=== PATIENT | female | born 1970 | race American Indian/Alaskan Native ===

== ENCOUNTER 2016-10-31 03:22 | Emergency (ER) | payer OTHER ==
[~2016-10-31] VITALS: Ht 170.2 cm; Wt 81.7 kg
[~2016-10-31 03:22] MED LIST: AMLODIPINE BESYL5 MG PO; ATIVAN0.5 MG PO; ATIVAN2 MG PO; COREG12.5 MG PO; DIFLUCAN200 MG PO; FOLIC ACID1 MG PO; FUROSEMIDE20 MG PO; FUROSEMIDE40 MG PO; IRON236 MG PO; IRON325 MG PO; K-PHOS NEUTRAL T1 EA PO; K-TAB ER20 MEQ PO; LACTULOSE10 GM/15 M PO; LACTULOSE10 GM/151 PO; LASIX40 MG PO; MAG-OXIDE400 MG PO; MAGNESIUM 300300 MG PO; MAGNESIUM400 MG PO; METROGEL-VAGINA70 GM PV; MULTI VITAMIN1 EACH PO; NITROFURANTOIN100 M1 PO; OMEPRAZOLE20 MG PO; OXYCODONE HCL5 MG PO; PEPCID40 MG PO; PROTONIX40 MG PO; SPIRONOLACTONE100 MG NG; SPIRONOLACTONE100 MG PO; SPIRONOLACTONE25 MG PO; SPIRONOLACTONE50 MG PO; THIAMINE HCL100 MG PO; TRAMADOL HCL50 MG PO; TRAZODONE HCL50 MG PO; ULTRAM50 MG PO; URSODIOL300 MG PO; VITAMIN B COMP1 EACH PO; VITAMIN B-1100 M1 PO; XIFAXAN550 MG PO; ZOFRAN ODT8 MG PO; ZUPLENZ8 MG PO
[2016-10-31] MEDS ORDERED: FUROSEMIDE40 MG PO (05:25)
[2016-10-31] MEDS ORDERED: SPIRONOLACTONE50 MG PO (05:25)
[2016-10-31] MEDS ORDERED: POTASSIUM CHLO10 MEQ PO (05:25)
== END 2016-10-31 05:51 | disposition home or self-care (01) ==
LOC: ED 03:22
DX: K74.60 Unspecified cirrhosis of liver (principal); I10 Essential (primary) hypertension; D64.9 Anemia, unspecified; Z88.1 Allergy status to other antibiotic agents; Z88.6 Allergy status to analgesic agent; Z88.8 Allergy status to other drugs, medicaments and biological substances; Z79.899 Other long term (current) drug therapy
CPT/HCPCS: 80053; 82140; 83735; 85025; 96374; 99283; G0480

== ENCOUNTER 2017-03-01 10:57 | Inpatient (IN) | payer OTHER ==
[~2017-03-01] VITALS: Ht 170.2 cm; Wt 64.0 kg
[~2017-03-01 10:57] MED LIST changes: +POTASSIUM CHLO10 MEQ PO
--- NOTE | 2017-03-01 18:19 | NUR ---
PATIENT ADMIT TO CCU FROM ED. ARRIVED TO THE UNIT @ ABOUT 1535 VIA STRETCHER AND INTUBATED. PATIENT WAS TRANSFER WITH 4 PERS. ASSIST. RESPIRATORY THERAPIST IN ROOM TO SET UP VENTILATOR. PROPOFOL AND FLUID WERE INFUSING. HEARD IN PLACE WITH YELLOW URINE. DR CORONEL WAS IN ROOM TO ASSESS PATIENT NEW ORDER FOR PRECEDEX TO MAINTAIN SEDATION. RESTRAINT APPLIED FOR SAFETY AND COMFORT. ASSESSMENT DONE. LUNGS CLEAR AND DIM IN THE LEFT LOWER LOBE. SKIN INTACT EXCEPT REDNESS AREA NOTED IN THE RIGHT ANTERIOR KNEE. ABD MILDLY DISTENTED AND LITTLE FIRM, HYPOACTIVE BOWEL TONE. PATIENT WAS VERY TACHY AND HIGH BP UPON ADMISSION A 3RD IV SITE ESTABLISHED. PATIENT WAS REPOSITIONED.
--- NOTE | 2017-03-01 19:10 | NUR ---
MEDICATION TITRATION - PRESIDEX - 1618 DRIP STARTED AT 0.2 MCG/KG/HR, AT 1624 0.4 MCG/KG/HR, AT 1639 0.6MCG/KG/HR, AT 1700 0.8 MCG/KG/HR, AT 1715 1.0 MCG/KG/HR. PROPOFOL - AT 1530 PT ARIVED AT 30 MCG/KG/MIN, AT 1600 40 MCG/KG/MIN, AT 1715 60 MCG/KG/MIN, AT 1750 30 MCG/KG/MIN. VALIUM - AT 1610 5 MG GIVEN, AT 1716 5 MG GIVEN, AT 1813 5 MG GIVEN. ATIVAN - AT 1750 2 MG IV ATIVAN GIVEN.
--- NOTE | 2017-03-01 19:17 | NUR ---
RESTRAINT ASSESS. RADIAL PULSES PALPABLE. CMS INTACT.
--- NOTE | 2017-03-01 20:50 | NUR ---
REPORT RECEIVED AT BEDSIDE AT 1915. IV INFUSIONS VERIFIED. PROPOFOL GTT INFUSING AT 30MCG/KG/HR, DECREASED AT 1999 TO 25MCG/KG. PRECEDEX INFUSION AT 1.0MCG/KG/HR. PT WITH RASS AT -4. AWAKENS TO NOXIOUS STIMULI. ET TUBE 7.0., POSITIONED 20CM AT TEETH. DR MOORE AND RT IN ROOM AT 1950. PT ASSESSMENT COMPLETED. ORAL CARE AND SUCTION COMPLETED. PT REPOSITIONED TO BACK AT 1999. R ARM ELEVATED ON PILLOW D/T SWELLING. IV'S PATENT ON R ARM, FLUSH WELL, DRAW BLOOD. BRUISING NOTED ON R BICEP AND L KNEE CAP. SLIGHT BLOOD TINGE ON SPONGE AFTER ORAL CARE.
--- NOTE | 2017-03-01 22:39 | EKG ---
[facility] [address] [place] [address] Signed Normal sinus rhythm Normal ECG When compared with ECG of 02-APR-2016 17:40, Nonspecific T wave abnormality has replaced inverted T waves in Anterolateral leads Confirmed by LONNIE MOORE MD ([id number]) on 03/01/2017 10:39:19 PM Electronically Signed By: LONNIE MOORE MD 03/01/17 2239 PATIENT NAME: BERRYLONDON Electrocardiogram DATE OF : 72 PHYSICIAN: LONNIE MOORE MD REPORT #: [id number] REPORT IS CONFIDENTIAL AND NOT TO BE RELEASED WITHOUT AUTHORIZATION
--- NOTE | 2017-03-01 23:27 | NUR ---
RT IN TO ADJUST VENT SETTINGS FIO2 DECREASED TO 21%, RATE DECREASED TO 16. PT NOTED TO HAVE INFILTRATED IV IN RFA. DC'D IV AND PLACED WARM PACK. L EJ PLACED BY PROCESS IMPROVEMENT SPECIALIST. PT TOLERATED WELL. GRIMACING AND COUGHING TO PAIN. 5MG VALIUM GIVEN AND PROPOFOL DECREASED TO 20MCG/KG/HR FOR RASS -3 TO -4 AT.
--- NOTE | 2017-03-02 00:08 | NUR ---
Decreased propofol gtt to 15mcg/kg/hr. Pt responds to pain only, does not open eyes.
--- NOTE | 2017-03-02 00:15 | NUR ---
ASSESSMENT COMPLETED. RASS: -4, PT GRIMACES TO PAIN, DOES NOT OPEN EYES. LUNGS CLEAR/DIM, FIO2:21%, VT:370, PEEP:5, PIP:16, RR:18, ETCO2: 31, SPO2:97. HR REGULAR, HR:73, BP:126/79. BOWEL TONES RARE, HYPOACTIVE IN LUQ. ABDOMEN IS SOFT, MODERATELY DISTENDED. RESTRAINTS REMOVED ONE AT A TIME AND ROM EXERCISES PERFORMED, RESTRAINTS REPLACED. CMS INTACT, PULSES PALPABLE. SCD'S & HEEL PROTECTORS IN PLACE. ORAL CARE AND SUCTIONING PROVIDED BY THIS RN. CATH CARE DONE. REPOSITIONED PT ONTO RIGHT SIDE. WILL CONTINUE TO MONITOR.
--- NOTE | 2017-03-02 01:00 | NUR ---
RASS REMAINS AT -4. PROPOFOL CONTINUES AT 15MCG/KG/HR.
--- NOTE | 2017-03-02 01:00 | NUR ---
RASS REMAINS AT -4. PROPOFOL CONTINUES AT 15MCG/KG/MIN.
--- NOTE | 2017-03-02 01:37 | NUR ---
PRECEDEX GTT DECREASED TO 0.9MCG/KG/HR. PT GIVEN 5MG VALIUM IV.
--- NOTE | 2017-03-02 02:00 | NUR ---
RASS: -4, PROPOFOL CONTINUES AT 15MG/KG/HR AND PRECEDEX CONTINUES AT 0.9
--- NOTE | 2017-03-02 02:00 | NUR ---
RASS: -4, PROPOFOL CONTINUES AT 15MCG/KG/HR AND PRECEDEX CONTINUES AT 0.9MCG/KG/HR.
--- NOTE | 2017-03-02 02:38 | NUR ---
PRECEDEX TITRATED TO 0.8MCG/KG/HR. ROM PERFORMED X4 EXTREMITIES. RESTRAINTS REPLACED, CMS INTACT. PUPILS APPEAR PINPOINT AND ARE NONREACTIVE. PT REPOSITIONED IN BED.
--- NOTE | 2017-03-02 03:00 | NUR ---
RASS REMAINS AT -4. PROPOFOL: 15MCG/KG/HR. TITRATED PRECEDEX TO 0.7MCG/KG/HR.
--- NOTE | 2017-03-02 04:00 | NUR ---
ASSESSMENT COMPLETED. PT REMAINS OBTUNDED, RASS: -4. PUPILS PINPOINT AND UNRESPONSIVE. LUNGS CLEAR/DIM. HR REGULAR. BOWEL TONES RARE. SKIN GROSSLY INTACT. RESTRAINTS CHECKED, CMS INTACT, PERIPHERAL PULSES PALPABLE. ORAL CARE PROVIDED. VENT: CMV, FIO2 21%, VT 370, PEEP 5, NO PRESSURE SUPPORT. PT'S TEMP: 96.7, PLACED 2 WARM BLANKETS AND INCREASED ROOM TEMPERATURE FROM 72 TO 75 DEGREES. REPOSITIONED PT IN BED ONTO LEFT SIDE.
--- NOTE | 2017-03-02 05:07 | NUR ---
RASS: -4, TITRATED PRECEDEX TO 0.6MCG/KG/HR, PROPOFOL REMAINS AT 15MCG/KG/HR. CHECKED RESTRAINTS, CMS INTACT, PULSES PALPABLE. RECHECKED TEMP: 97.4. NO CHANGES TO VENT SETTINGS. WILL CONTINUE TO MONITOR.
--- NOTE | 2017-03-02 05:23 | NUR ---
PROPOFOL TITRATED TO 10MCG/KG/HR.
--- NOTE | 2017-03-02 05:41 | NUR ---
REPOSITIONED PT FLAT IN BED. WEIGHT OBTAINED VIA BED SCALE: 59.1KG.
--- NOTE | 2017-03-02 05:57 | NUR ---
PT RESPONDS TO STERNAL RUB ONLY - GRIMACES. DECREASED PRECEDEX TO 0.5MCG/KG/HR. 5MG VALIUM GIVEN IV.
--- NOTE | 2017-03-02 07:00 | NUR ---
RASS: -2, PT OPENS EYES WHEN SPOKEN TO, MOVING HANDS. 5MG IV VALIUM ADMINISTERED, TITRATED PROPOFOL UP TO 15MCG/KG/HR.
--- NOTE | 2017-03-02 07:30 | NUR ---
bedside report recieved.
--- NOTE | 2017-03-02 08:00 | NUR ---
ASSESSMENT DONE. REMAINS ON VENT, TV-370, PEEP-5, FIO2-21, CMV-16. MEDICATED WITH PRECEDEX AND DIPRAVAN. IV SITES PATENT. ABGS OBTAINED EARLIER. ORAL CARE GIVEN.
--- NOTE | 2017-03-02 09:00 | NUR ---
CELEXA 10 MG CRUSHED AT GIVEN VIA OG TUBE, OG CLAMPED. WILL UNCLAMP AT 1000. SCD'S ON. ROUTINE MEDS GIVEN.
--- NOTE | 2017-03-02 09:33 | NUR ---
NO CHANGES. REMAINS ON PRECEDEX 0.5 MG/KG/MIN AND DIPRAVAN 15 MG/KG/MIN. REPOSITIONED.
--- NOTE | 2017-03-02 10:15 | NUR ---
MOVING ARMS AND LEGS. FACIAL GRIMACE. ATIVAN 2 MG IV GIVEN. DIPRAVAN INCREASED TO 20 MCG/KG/MIN, PRECEDEX TO 0.7.
--- NOTE | 2017-03-02 10:20 | NUR ---
CALM NOW. SPONGE BATH GIVEN. REPOSITIONED. ORAL CARE GIVEN.
--- NOTE | 2017-03-02 10:49 | NUR ---
DIPRAVAN DECREASED TO 20 MCG/KG/MIN. PRECEDEX AT 0.7 MCG/KG/HR.
--- NOTE | 2017-03-02 10:50 | NUR ---
Tod DOVER RN HERE TO PLACE PICC LINE.
--- NOTE | 2017-03-02 11:40 | NUR ---
PICC LINE PLACED TP LEFT INNER DELTOID. CHEST XRAY DONE FOR PLACEMENT.
--- NOTE | 2017-03-02 11:45 | NUR ---
DR. MOORE HERE TO COMFIRM PLACEMENT OF PICC LINE. ORDERS RECIEVED OK TO USE PICC LINE. TOELRATED PROCEEDURE WELL. PRECEDEX DECREASED TO 0.5 MGC/KG/HR BP-93/56 (66). IV SITE TO RIGHT INNER WRIST DC'D.
--- NOTE | 2017-03-02 12:04 | NUR ---
DR. MOORE AWARE OF U/O. ORDERS RECIEVED TO BOLUS WITH NS 1000 ML.
--- NOTE | 2017-03-02 13:53 | NUR ---
RESTFUL ON VENT. NO CHANGES IN VENT SETTINGS.
--- NOTE | 2017-03-02 14:08 | NUR ---
PROPOFOL AT 15 MCG/KG/MIN, PRECEDEX AT 0.5 MCG/KG/MIN.
--- NOTE | 2017-03-02 14:20 | NUR ---
NS AT 500 ML OVER 2 HR INFUSED. IVF D2 1/2 NS W/20 KCL HUNG AT 125 ML HR.
--- NOTE | 2017-03-02 16:45 | NUR ---
INC OF LIQ STOOL. IS COUGHING, TENSE. REPOSITIONED, ATTENDS APPLIED.
--- NOTE | 2017-03-02 16:55 | NUR ---
VALIUM 5 MG IV GIVEN. REMAINS TENSE. COUGHING. PULLING ON RESTRAINTS.
--- NOTE | 2017-03-02 17:15 | NUR ---
CALM NOW. THIAMINE HUNG EARLIER.
--- NOTE | 2017-03-02 18:15 | NUR ---
INCREASE AGITATION AFTER REPOSITION. PULLED OUT OG TUBE. ATIVAN 2 MG IV GIVEN. IV TO LEFT HAND OUT. PRESEDEX INCREASED TO .8MCG/KG/HR. DIPRAVAN TO 20 MCG/KG/MIN. NG REPALCED. WILL UPDATE DR. MOORE.
--- NOTE | 2017-03-02 18:56 | NUR ---
DR. MOORE UPDATED ON PATIENT CONDITION, IS AWARE OF DOSE OF PRECEDEX AND DIPRAVAN, AND THE OG REPLACED. IS AWARE OF U/O OUTPUT OVER LAST HOUR. NO FURTHER ORDERS. WILL CONTINUE TO MONITOR.
--- NOTE | 2017-03-02 20:00 | NUR ---
CALLED TO UPDATE ON PT URINE OUTPUT OF 2 ML, LOW BP OF 83/39 (50), AND LOW O2 SAT OF 92%. REPORTED THAT RESP THERAPY IS IN THE ROOM AT THE TIME ASSESSING THE PT. 1 L NS BOLUS ORDERED TO BE GIVEN OVER 1 HR.
--- NOTE | 2017-03-02 20:05 | NUR ---
PRESIDEX DRIP TITRATED TO 0.6 MCG/KG/MIN.
--- NOTE | 2017-03-02 20:16 | NUR ---
PICC LINE INTACT, NO REDNESS OR SWELLING NOTED, FLUIDS INFUSING EASILY INTO BOTH LUMINS. IJ IV SITE IN LEFT SIDE FLUSHES EASILY, NO REDNESS OR SWELLING NOTED, FLUSHES EASILY. PT SEDATED TO A -2, APPEARS COMFORTABLE AT THIS TIME. RESTRAINTS ASSESSED FOR PT COMFORT AND SAFETY. SCD'S INTACT, HEEL PROTECTORS IN PLACE.
--- NOTE | 2017-03-02 20:31 | NUR ---
5 MG VALIUM GIVEN
--- NOTE | 2017-03-02 22:15 | NUR ---
BLADDER SCANED PT FOR 0 ML IN BLADDER. FLUSHED URINARY HEARD CATH WITH 30 ML STERILE NS, ONLY 30 ML FLUID RETURNED FROM CATH, STIVEN IN COLOR.
--- NOTE | 2017-03-02 22:20 | NUR ---
CALLED TO UP DATE ON PT NOT PRODUCING URINE POST 1 L BOLUS OF NS. ORDER GIVEN FOR BMP NOW. DRAWN OFF OF PICC LINE AND SENT TO LAB.
--- NOTE | 2017-03-02 23:35 | NUR ---
CALLED TO UPDATE ON LAB VALUES AND PT CURRENT LOW BP OF 86/36, AND LOW O2 SAT OF 89% ON VENT. CHEST X-RAY ORDERED AND LEVOPHED DRIP TO TITRATE TO KEEP MAP AT LEAST 60.
--- NOTE | 2017-03-02 23:38 | NUR ---
PREXIDEX DRIP OFF.
--- NOTE | 2017-03-02 23:45 | NUR ---
IMAGING HERE TO TAKE CHEST X-RAY. RESP THEREAPY IN ROOM TO ASSIST.
--- NOTE | 2017-03-02 23:53 | NUR ---
2 MG IV ATIVAN GIVEN, LEVOPHED DRIP STARTED AT 2 MCG/MIN.
--- NOTE | 2017-03-03 | NUR ---
PROPOFOL DRIP TITRATED UP TO 40 MCG.
--- NOTE | 2017-03-03 00:15 | NUR ---
PT INCONTINENT OF STOOL, CHANGED ATTENDS AND LINNENS. ROSELIA CARE DONE. PT REPOSITIONED FOR COMFORT. RESTRAINTS CHECKED FOR PT SAFETY AND COMFORT.
--- NOTE | 2017-03-03 00:48 | NUR ---
PICC SITE INTACT, NO SWELLING OR REDNESS NOTED, SCANT OLD BLOOD NOTED UNDER WINDOW DEVICE, FLUIDS INFUSING EASILY. IJ SITE IN LEFT SIDE OF NECK INTACT, NO REDNESS OR SWELLING NOTED, FLUIDS INFUSING EASILY.
--- NOTE | 2017-03-03 03:16 | NUR ---
REPOSITIONED PT FOR COMFORT. RESTRAINTS ASSESSED FOR PT COMFORT AND SAFETY. PT GIVEN 5 MG IV VALIUM FOR SIEZURE PREVENTION. IJ AND PICC SITES INTACT. PT ATTEMPTING TO CHEW ON ET TUBE, PROPOFOL TURNED UP TO 60 MCG/KG/MIN FOR 10 MIN UNTIL PT ABLE TO RELAX. RT REPOSITIONED ET TUBE WITH BITE BLOCK TO PROTECT TUBE FROM PT CHEWING.
--- NOTE | 2017-03-03 05:10 | NUR ---
PT GIVEN 5 MG IV VALIUM FOR SEIZURE PREVENTION. RESTRAINTS CHECKED FOR PT COMFORT AND SAFETY. IN ROOM TO EVALUATE PT FOR MORING ROUNDS, PT IS AT A RASS SCORE OF -1.
--- NOTE | 2017-03-03 06:16 | NUR ---
VERSED DRIP STARTED AT 2 MG/HR.
--- NOTE | 2017-03-03 06:30 | NUR ---
LABS DRAWN FROM PICC LINE, HEP FLUSHED BOTH LUMINS, POSIFLOW CAPS CHANGED, BLOOD RETURN OBTAINED FROM EACH LUMIN.
--- NOTE | 2017-03-03 06:33 | NUR ---
VERSED DRIP TITRATED UP TO 4 MG/HR.
--- NOTE | 2017-03-03 06:35 | NUR ---
PT REPOSITIONED IN BED FOR COMFORT, PILLOWS UNDER BILAT KNEES, GOWN CHANGED, BLANKETS OFF DUE TO PT ELEVATED TEMP. RESTRAINTS ASSESSED FOR COMFORT AND PT SAFETY. OG TUBE FLUSHED WITH 60 ML TAP WATER.
--- NOTE | 2017-03-03 06:48 | NUR ---
PROPOFOL TITRATED TO 40 MCG/KG/HR, VERSED TITRATED TO 6 MG/HR.
--- NOTE | 2017-03-03 07:30 | NUR ---
BEDSIDE REPORT RECIEVED.
--- NOTE | 2017-03-03 08:20 | NUR ---
ASSESSMENT AND ROUTINE MEDS GIVEN. MED INCLUDES PHENOBAR 60 MG IV, VERSED GTT INCREASED TO 8 MG/HR PATIENT REMAINS VERY RESTLESS. IS TENSE. REMAINS ON VENT. SETTINGS TV-370, CMV-16, PEEP-5, FIO2-30. PIP-10 TO 14. POOR U/O. WILL NOTIFY . REMAINS ON LEVOPHED GTT AT 3 MCG/MIN, PROPOFOL 40 MCG/KG/MIN, IVF AT 125.
--- NOTE | 2017-03-03 09:20 | NUR ---
DR. MOORE AWARE OF LOW U/O, WAS UPDATED ON CURRENT DOSE OF IV MEDICATIONS AND V.S. ORDERS RECIEVED.
--- NOTE | 2017-03-03 09:35 | NUR ---
ALBUMIN HUNG. OG CLAMPED MEDS GIVEN VIA TUBE.
--- NOTE | 2017-03-03 10:24 | NUR ---
PICC LINE DRESSING REDRESSED PER PROTOCOL.
--- NOTE | 2017-03-03 12:47 | NUR ---
ATIVAN 2 MG IV GIVEN PRIOR TO CARES.
--- NOTE | 2017-03-03 12:55 | NUR ---
INCONT OF STOOL.
--- NOTE | 2017-03-03 13:00 | NUR ---
SPONGE BATH WITH LINEN CHANGE COMPLETE. LEVPHED GTT AT 1.5 MCG/MIN.
--- NOTE | 2017-03-03 15:00 | NUR ---
DR. MOORE HERE TO SEE PATIENT. ORDERS RECIEVED.
--- NOTE | 2017-03-03 15:25 | NUR ---
URINE AND SPUTUM OBTAINED AND SENT TO LAB.
--- NOTE | 2017-03-03 15:27 | NUR ---
WILL GO TO CT VIA BED AT APPROX 1600. IVF OF NS INFUSING AT 250 ML/HR. MAINTANCE IVF HELD FOR NOW.
--- NOTE | 2017-03-03 15:55 | NUR ---
INC OF LIQUID BILE LIKE STOOL.
--- NOTE | 2017-03-03 16:10 | NUR ---
ATIVAN 2 MG IV GIVEN, READY TO GO TO CT VIA BED. RT, OUTPATIENT SERVICES DIRECTOR, RN WITH PATIENT.
--- NOTE | 2017-03-03 16:40 | NUR ---
TOLERATED CT WELL, BACK TO ROOM W/O INCIDENT.
--- NOTE | 2017-03-03 18:10 | NUR ---
LEVOPHED GTT OFF.
--- NOTE | 2017-03-03 20:12 | NUR ---
PT DID OPEN EYE WHEN PUPILS CHECKED AND HAD A TEAR. ALSO TRIED TO STRIKE OUT WITH HANDS, GIVEN 2MG ATIVAN IV PRIOR TO ORAL CARE BEING DONE. PT INC SMALL AMT GREEN STOOL. CATH CARE DONE. ROM DONE ALL [address] SPOKE WITH [address] OSCAR BURNETTE AT TB TEST SITE, SHE IS AWARE AND STATES THAT THERE IS NO INDERATION. PT CONT TO HAVE HIPS FLOATED ON PILLOWS.
--- NOTE | 2017-03-03 22:05 | NUR ---
REPOSITIONED. NO CHANGE
--- NOTE | 2017-03-04 00:12 | NUR ---
DR MOORE GIVEN UPDATE AT 2330, CONTS TO HAVE POOR URINE OUTPUT. PT REPOSITIONED AND ROM DONE. ATTENDS DRY.
--- NOTE | 2017-03-04 01:40 | NUR ---
PT REPOSITIONED. WRINKLED FACE BUT THEN CALMED.
--- NOTE | 2017-03-04 04:15 | NUR ---
PT REPOSISIONED, ROM DONE. WILL GRIMMACE BRIEFLY WHEN ORAL CARE IS DONE.
--- NOTE | 2017-03-04 04:32 | NUR ---
LT EYE HAS SMALL AMT DRAINAGE, NO REDNESS NOTED.
--- NOTE | 2017-03-04 06:48 | NUR ---
PT REPOSITIONED, CXR DONE AND REPOSITIONED AGAIN. ABG DRAWN. PT DID FROWN WHEN ABG DRAWN.
--- NOTE | 2017-03-04 06:58 | NUR ---
REPORT TO DAY SHIFT.
--- NOTE | 2017-03-04 07:25 | NUR ---
versed decreased to 5 MG/HR.
--- NOTE | 2017-03-04 07:35 | NUR ---
DR. MOORE HERE TO SEE PATIENT. ORDERS RECIEVED TO HOLD PROPOFOL. THIS TURNED OFF AT THIS TIME. VERSED GTT REMAINS AT 5 MG/HR. HOB ELEVATED.
--- NOTE | 2017-03-04 07:45 | NUR ---
RT HERE. VENT TO CPAP. DR. MOORE IN ROOM CONTINUE TO DISCUSS PLAN OF CARE FOR DAY WITH STAFF.
--- NOTE | 2017-03-04 07:58 | NUR ---
RESP RATE 13 ON CPAP. PT OWN TV-500 TO 600. PATIENT IS CALM. NO DISTRESS NOTED.
--- NOTE | 2017-03-04 08:10 | NUR ---
REMAINS CALM. VERSED TO 3 MG/HR.
--- NOTE | 2017-03-04 08:35 | NUR ---
RED AREA ON LEFT INNER FA WHERE TB TEST WAS GIVEN IS 3 CM LONG AND 2 CM WIDE. NO INDURATION NOTED. IS LESS IRRITATED TODAY.
--- NOTE | 2017-03-04 08:53 | NUR ---
REMAINS ON CPAP. RESP 15-20, HAS OCC COUGH. NOT FOLLOWING COMMANDS AT THIS TIME. NOT OPENING EYES.
--- NOTE | 2017-03-04 09:48 | NUR ---
REMAINS ON CPAP. NO RESP DISTRESS NOTED. RESP RATE 16 EQUAL AND NON-LABORED. IS MOVING ARMS AND LEGS OCC, NOT FOLLOWING COMMANDS THIS TIME. EYES CLOSED. VERSED INFUSING AT 3 MG/HR. IVF AT 25. OWN TV-400-550.
--- NOTE | 2017-03-04 09:56 | NUR ---
VERSED TO OFF.
--- NOTE | 2017-03-04 10:23 | NUR ---
CALM. NO SEIZURE ACTIVITY NOTED.
--- NOTE | 2017-03-04 10:50 | NUR ---
REMAINS ON CPAP AT 30% FIO2. O2 SAT 100, HR-87, RR-20. NO DISTRESS NOTED. REMAINS OFF ALL SEDATION. PHENOBARB WAS HELD AT 0900 DUE TO SEDATION VACATON.
--- NOTE | 2017-03-04 11:37 | NUR ---
ABG RESULTS ON 30% FIO2,CPAP VIA VENT, PH7.27, PCO2-29.5, PO2-80, HCO3-13.4.
--- NOTE | 2017-03-04 12:15 | NUR ---
ABG RESULTS REPORTED TO DR. MOORE. ORDERS RECIEVED TO CONTINUE TO GIVE BENZODIAZEPINES WELL PHENOBARB. ATIVAN 2 MG IV AND PHENOBARB 60 IV GIVEN. REPOSITIONED. REMAINS ON CPAP VIA VENT. IS NOT OPENING EYES OR FOLLOWING COMMANDS. PATIENT WAS W/O ANY SEDATION FOR APPROX 3 HRS.
--- NOTE | 2017-03-04 13:34 | NUR ---
DR. MOORE UPDATED ON CONDITION. NO FUTHER ORDERS. PATIENT REMAINS ON CPAP VIA VENT AT 30% FIO2. IS MOVING ARMS AND LEG MORE. NOT FOLLOWING COMMANDS OR OPENING EYS. U/O HAS INCREASED OV THE DAY. URINE COLOR IS YELLOW.
--- NOTE | 2017-03-04 14:32 | NUR ---
RESTFUL. NO CHANGES.
--- NOTE | 2017-03-04 15:40 | NUR ---
DR. SLAUGHTER HERE TO SEE PATIENT. ORDERS RECIEVED.WILL NOT GIVE ANY SEDATION MEDICATION AT THIS TIME. THESE MEDICATIONS HAVE ALL BEEN DC'D.
--- NOTE | 2017-03-04 16:40 | NUR ---
IVF CHANGED. SUCTIONED. NOT FOLLOWING COMMANDS.
--- NOTE | 2017-03-04 17:00 | NUR ---
COUGHING, HR TO 122. VENT BACK TO CMV OF 14, TV 370, PEEP 5, FIO2 30. MORE RESTLESS . DR. SLAUGHTER IS AWARE.
--- NOTE | 2017-03-04 17:32 | NUR ---
pts hourly urine output for 1700 was 108cc.
--- NOTE | 2017-03-04 18:00 | NUR ---
HR-115. FACE FLUSHED. ORAL SUCTION. BODY IS TENSE. NOT FOLLOWING COMMANDS.
--- NOTE | 2017-03-04 20:15 | NUR ---
HAS BEEN TACHYPNEAC, AND COUGHING PRODUCTIVELY OF WHITE SPUTUM. SUCTIONED ETT SEVERAL TIMES SINCE 1930. GIVEN 0.5MG ATIVAN IV AT 1935 AND AT 1999. PT RESISTS CARE, WILL PULL ARM AWAY AND REALLY RESISITED ORAL CARE. WILL NOT OPEN EYES AND WILL CLENCH HANDS. CALMER NOW. HR STILL 120. CATH CARE DONE.
--- NOTE | 2017-03-04 20:38 | NUR ---
PT WILL OCC PULL AT RESTRAINTS, RR [id number] SLAUGHTER CALLED.
--- NOTE | 2017-03-04 21:19 | NUR ---
PROPOFOL STARTED AT 5MG/KG AT 2049 TITRATED TO 10MG/KG AT 2114. PT CONT TO HAVE LARGE AMT SECRETIONS FROM ETT.
--- NOTE | 2017-03-04 22:26 | NUR ---
REPOSITIONED. CONT TO COUGH FREQ.
--- NOTE | 2017-03-04 23:40 | NUR ---
REPOSITIONED. IS INTERMIT RESTLESS.
--- NOTE | 2017-03-05 00:37 | NUR ---
HAVE TITRATED PROPOFOL UP TO 15MG/KG DUE TO RESTLESSNESS. HAS ALSO RECIEVED 2 DOSES OF 0.5MG ATIVAN IV. IS NOW QUIET.
--- NOTE | 2017-03-05 01:30 | NUR ---
PT RESTFUL BETWEEN EPISODES OF COUGHING.
--- NOTE | 2017-03-05 03:50 | NUR ---
RESISTS ANY CARE IE FACE BEING WASHED OR ORAL CARE. WILL NOT OPEN EYES. REPOSITIONED. ORAL CARE DONE. ATTENDS DRY, NO STOOL.
--- NOTE | 2017-03-05 06:24 | NUR ---
REPOSITIONED. PROPOFOL AT 20MG.KG.
--- NOTE | 2017-03-05 07:11 | NUR ---
REPORT TO DAY SHIFT.
--- NOTE | 2017-03-05 08:00 | NUR ---
ASSESSMENT DONE. ROUTINE MEDS GIVE IV WELL OG. TUBE FEEDING REMAINS AT 10 ML/HR. IVF INFUSING AT 125 ML/HR. PROPOFOL INFUSING AT 20 MCG/KG/MIN. SUCTIONED FOR MOD AMT OF THICK WHITE SPUTUM. HAS OCC COUGH. REMAINS ON VENT. SETTINGS: TV-370, FIO2 30, PEEP 5, CMV 14, PIP 11-16.
--- NOTE | 2017-03-05 08:45 | NUR ---
INC OF STOOL. REPOSITIONED TO LEFT SIDE. PROPOFOL DECRESED TO 15 MCG/KG/MIN.
--- NOTE | 2017-03-05 10:40 | NUR ---
PROPOFOL TO OFF. DR. SLAUGHTER IS HERE TO SEE PATIENT.
--- NOTE | 2017-03-05 11:20 | NUR ---
BCX2 SITES COLLECTED. LA DRAWN. PATIENT IS RESISTANT OF NEEDLES. WILL OPEN EYES BRIEFLY. HEARD CATH DC'D, WILL REPLACE AND OBTAIN UA. TUBE FEEDING INCREASED TO 20 ML/HR.
--- NOTE | 2017-03-05 11:40 | NUR ---
INC OF STOOL. HEARD CATH REPLACED. PORT CXR DONE. REMAINS ON CPAP AT FIO2 30%. HAS OCC COUGH.
--- NOTE | 2017-03-05 14:06 | NUR ---
DR SLAUGHTER TO BEDSIDE. MD ORDERS ET TUBE TO BE REMOVED AND PATIENT TO BE PLACED ON BIPAP. PATIENT REMAINS MINIMALLY RESPONSIVE, BARELY RESPONDS TO STERNAL RUB. MD IS AWARE AND ALSO ASSESSES PATIENT. RT CALLED FOR EXTUBATION.
--- NOTE | 2017-03-05 14:20 | NUR ---
RT AND MD AT BEDSIDE. 1420 PATIENT EXTUBATED, OG TUBE REMOVED, RT PLACES PATIENT ON BIPAP. PATIENT TOLERATES WELL. O2 SATS 98-100. REMOVED WRIST RESTRAINTS. BIPAP IN PLACE O2 AT 30%
--- NOTE | 2017-03-05 14:20 | NUR ---
EXTABATED. PLACED ON BIPAP. NO RESP DITRESS NOTED. WRIST RESTRAINTS OFF. HOB ELEVATED.
--- NOTE | 2017-03-05 14:45 | NUR ---
REMAINS ON BIPAP. N RESP DISTRESS NOTED.
--- NOTE | 2017-03-05 15:15 | NUR ---
BIPAP OFF. NOW ON RA. WILL CONTINUE TO MONITOR O2 SAT.RESTFUL.
--- NOTE | 2017-03-05 16:00 | NUR ---
OFF O2 IS NOW ON RA. HAS OCC HARSH NON PRODUCTIVE COUGH. IS MORE ALERT, FOLLOWING SOME COMMANDS. ORAL CARE GIVEN.
--- NOTE | 2017-03-05 16:00 | NUR ---
PICC LINE DRESSING CHANGED, BLOOD NOTED ON DRESSING.
--- NOTE | 2017-03-05 16:20 | NUR ---
INCONT OF STOOL.
--- NOTE | 2017-03-05 18:00 | NUR ---
TO COMMODE WITH ASSIST. NO BM BACK TO BED.
--- NOTE | 2017-03-05 18:46 | NUR ---
REMAINS ON RA. NO RESP DISTRESS NOTED. NO SEIZURE ACTIVITY. K RIDER INFUSING.
--- NOTE | 2017-03-05 18:56 | NUR ---
NO CHANGES. REMAINS ON RA. NOT ABLE TO UNDERSTAND WHAT PATIENT IS TRYING TO SAY.
--- NOTE | 2017-03-05 20:09 | NUR ---
PT STARTING TO GET OOB, INDICATED SHE NEEDED TO HAVE BM. ASSISTED TO BSC WITH MAX 2 PERSON ASSIST. HAD SCANT GREEN STOOL. BACK TO BED WAS STRONGER AND EASIER TO DIRECT. FOLLOWS FEW COMMANDS. WHISPERS BUT UNABLE TO UNDERSTAND SPEECH. BP 158/107, GIVEN SCHEDULED DOSE OF LOPRESSER.
--- NOTE | 2017-03-05 22:21 | NUR ---
PT ATTENDS DRY. REPOSITIONED IN BED. BED ALARM ON PT POINTING TO CLOSET. PT VOICE VERY QUIET, DIFFICULT TO UNDERSTAND. PT SHAKES HEAD YES OR NO. VERY WEAK. PULLING AT IV TUBING AT TIMES AND PICKING AT DRESSINGS. PT STATED 'JUST GO'.
--- NOTE | 2017-03-05 22:51 | NUR ---
BEDSIDE SWALLOW COMPLETED WITH PT. PT DID NOT PASS. COUGHING WITH 2ND TEASPOON OF WATER. DR SLAUGHTER AWARE OF MEDS TO BE HELD IF PT DOES NOT PASS.
--- NOTE | 2017-03-06 00:30 | NUR ---
OCC TRIES TO PULL ON SIDE RAIL. STILL VERY HARD TO UNDERSTAND SPEECH, PT OCC WILL HAVE A FEW CLEAR WORDS. WILL CALM AND REST FOR INTERVALS.
--- NOTE | 2017-03-06 03:36 | NUR ---
RESTLESS AT TIMES. REPOSITIONED. CAN OCC UNDERSTAND WHAT PT IS TRYING TO SAY. PT REMAINS DISORIENTED. DID SAY WANTED TO TALK TO SISTER, EXPLAINED WAS MIDDLE OF NIGHT AND WILL CALL HER LATER.
--- NOTE | 2017-03-06 04:27 | NUR ---
DR SLAUGHTER CALLED RE PTS RESTLESS AND ELEVATED BP. WILL GIVEN 1MG ATIVAN IV.
--- NOTE | 2017-03-06 06:26 | NUR ---
HAS BEEN MORE RESTFULL SINCE WAS GIVEN ATIVAN. WILL OCC CALL OUT.
--- NOTE | 2017-03-06 07:30 | NUR ---
UP TO CHAIR WITH ASSIST.
--- NOTE | 2017-03-06 08:00 | NUR ---
ASSESSMENT DONE. IS VERY DIFFICULT TO UNDERSTAND.
--- NOTE | 2017-03-06 08:30 | NUR ---
TOOK MEDS IN APPLESAUSE, WAS ABLE TO SWALLOW WITHOUT PROBLEMS.
--- NOTE | 2017-03-06 08:52 | NUR ---
up to commode to void. DENIES PROBLEMS.
--- NOTE | 2017-03-06 10:00 | NUR ---
BACK TO BED. DR. ONEILDY HER TO DO DX PARACENTESIS. APPROX 20 ML OF [id number] FLUID SENT TO LAB. PATIENT TOLERATED WELL.
--- NOTE | 2017-03-06 11:56 | NUR ---
UP TO CHAIR. TAKING PO LIQUIDS.
--- NOTE | 2017-03-06 13:30 | NUR ---
NADOLOL 20 MG PO GIVEN. PATIENT IS SITTING IN CHAIR.
--- NOTE | 2017-03-06 14:37 | NUR ---
TO COMMODE TO EXPELL URINE AND LIQUID STOOL. PUTTING MORE WEIGHT ON FEET TODAY. VOICE IS STRONGER, ABLE TO UNDERSTAND FEW WORDS PATIENT IS SAYING. IS FOLLOWING MOST DIRECTION AND TAKING SIPS OF LIQ WHEN OFFERED.
--- NOTE | 2017-03-06 16:34 | NUR ---
AMBULATED TO BR TO VOID AND HAVE BM, BACK TO BED.
--- NOTE | 2017-03-06 16:55 | NUR ---
DR. SLAUGHTER AWARE OF BP INCREASE. ORDERS RECIEVED.
--- NOTE | 2017-03-06 17:15 | NUR ---
SECOND DOSE OF NADOLOL 20 GIVEN PER ORDERS.
--- NOTE | 2017-03-06 17:55 | NUR ---
TOOK FULL LIQ FAIR.
--- NOTE | 2017-03-06 20:02 | NUR ---
NOTED TO BE RESTLESS AND STARTING TO GET UP. WAS INC OF LIQ STOOL. AMB TO BR WITH WALKER TO HAVE MORE STOOL AND VOID IN TOILET. IS UNSTEADY ON FEET BUT USES WALKER WELL. IS VERY DIFFICULT TO UNDERSTAND BUT CAN OCC UNDERSTAND A FEW PHRASES. IS SOMEWHAT CONFUSED BUT DIRECTABLE. GIVEN PO MED WITH PUDDING.
--- NOTE | 2017-03-06 22:20 | NUR ---
HAS BEEN SLEEPING. AMB TO BR WITH WALKER, IS STRONGER. HAD LIQ STOOL MIXED WITH URINE IN TOILET DESPITE TRYING TO MEASURE WITH HAT. TAKING WATER.
--- NOTE | 2017-03-06 23:30 | NUR ---
UP TO BR FOR LIQ STOOL AND TO VOID. TAKES DIRECTION WELL. STILL VERY DIFICULT TO UNDERSTAND.
--- NOTE | 2017-03-07 02:38 | NUR ---
AMB TO BR TO VOID AND HAVE SMEAR BM. GATO BEING UP WELL, GETTING STRONGER. ASKED IF IT WAS TIME FOR LUNCH, INDICATED WAS HUNGRY. GIVEN PUDDING. SPEECH IS CLEARER AND TALKING MORE WITH STAFF.
--- NOTE | 2017-03-07 03:50 | NUR ---
UP TO BR. VOIDED AND HAD SMALL STOOL. CONT TO USES WALKER WELL. SPEECH CONT TO GET STRONGER AND CLEARER.
--- NOTE | 2017-03-07 05:40 | NUR ---
AMB TO BR TO VOID AND HAVE LG LIQ STOOL. IS COOPERATIVE AND REQUIRES LESS DIRECTION. IS ASKING ABOUT PHONING HER HOME.
--- NOTE | 2017-03-07 08:57 | NUR ---
PATIENT UP IN CHAIR AT THIS TIME. PT EATING A FULL LIQUID TRAY. PT SOFT SPOKEN BUT ANSWERING QUESTIONS APPROPRIATELY. CONTINUE TO MONITOR.
--- NOTE | 2017-03-07 09:15 | NUR ---
One out of two blood cultures grew Gm(+) cocci. Possible contaminate, but also could be MSSA or MSRA infection.
--- NOTE | 2017-03-07 10:05 | NUR ---
DR. SLAUGHTER IN ROOM TO EVALUATE PATIENT. PATIENT UP TO BATHROOM X1 ASSIST. PT AMBULATES FAIRLY WELL. NEW ORDERS REC'D TO D/C PICC LINE AND START PERIPHERAL IV LINE. PT TO BE STARTED ON IV VANCO. CONTINUE TO MONITOR.
--- NOTE | 2017-03-07 11:02 | NUR ---
BALANCE TRUER IN ROOM DOING ECHOCARDIOGRAM AT THIS TIME. PT ABLE TO SWALLOW HER AM MEDS WITHOUT DIFFICULTY. CONTINUE TO MONITOR.
--- NOTE | 2017-03-07 11:49 | NUR ---
DR. SLAUGHTER REQUESTING THIS RN TO PLACE MIDLINE IN PT'S RIGHT ARM AND D/C PICC IN LEFT. CONTINUE TO MONITOR. PT IN BED RESTING AT THIS TIME.
--- NOTE | 2017-03-07 12:54 | NUR ---
ARLEY SANDOVAL, FROM SURGERY DEPARTMENT IN ROOM PLACING MIDLINE IN RIGHT UPPER ARM. PT TOLERATING WELL. CONTINUE TO MONITOR.
--- NOTE | 2017-03-07 15:18 | NUR ---
PATIENT HAS REMAINED UP IN CHAIR FOR APPROX THE LAST HOUR, ATE 100% LUNCH WITHOUT DIFFICULTY. HAS ALSO AMBULATED WITH STANDBY ASSIST TO BR TO VOID. DOES USE CALL LIGHT APPROPRIATELY BUT IS IMPULSIVE. IS EASILY REDIRECTED TO WAIT FOR STAFF ASSISTANCE D/T MULTIPLE CORDS, TUBING ETC.
--- NOTE | 2017-03-07 15:54 | NUR ---
REPORT GIVEN TO JAIME HIGGINS WHO IS GOING TO RESUME CARE FOR PATIENT ON MED/SURG. PATIENT SITTING IN CHAIR AT THIS TIME. PHYSICAL THERAPY IN ROOM EVALUATING PATIENT. PT TO TRANSFER TO ROOM 111 WITHOUT TELEMETRY.
--- NOTE | 2017-03-07 16:12 | NUR ---
PATIENT ABLE TO AMBULATE ALL THE WAY TO ROOM 111 WITHOUT DIFFICULTY.
--- NOTE | 2017-03-07 16:15 | NUR ---
PT ABLE TO AMBULATE TO FLOOR WITH PHYS. THER. MOVING SLOW BUT FAIRLY STEADY HANGING ONTO THE IV POLE. PT NOW HAS VISITORS IN ROOM. SLOW TO RESPOND TO QUESTIONS BUT HAS RESPONDED APPROPRIATLY.
--- NOTE | 2017-03-07 16:20 | NUR ---
CARE CONFERENCE ATTENDEES: PATIENT, SISTER CORNELIUS, AND MALE FRIEND STAFF: DR SLAUGHTER, MYSELF-CASE MANAGEMENT, PHARMACY-RONALDO CHUNG. DR SLAUGHTER DISCUSSED WITH PT AND HER SISTER WHAT HAS BEEN GOING ON WITH PT SINCE SHE CAME IN AND HOW SHE WAS HAVING SEIZURES AND NEEDED INTUBATED TO COME THROUGH WITHDRAWALS X 4 DAYS, EXTUBATED FOR 2 DAYS AND NOW HAVING A PNEUMONIA AND ON ANTIBX, SISTER ASKED HOW LONG SHE WOULD BE ON THEM AND STATED COUPLE MORE DAYS AT LEAST, AND SHE IS WORKING WITH PT TO GET STRONGER. HE REMINDED HER THAT SHE IS NOT TO DRINK ANY ALCOHOL THAT IT HAS DAMAGED HER LIVER AND IT WILL KILL HER. PT STATES I AM JUST TRYING TO GET SOBER SO I CAN GO TO MY A AND D COUNSELOR. PT AND SISTER DENIED FURTHER QUESTIONS. WILL CONTINUE TO FOLLOW HER DURING HER STAY IN THE HOSPITAL.
--- NOTE | 2017-03-07 16:29 | NUR ---
CARE CONFERENCE WITH PT, STAFF AND SISTER AND FRIEND. PT ASKED A COUPLE OF QUESTIONS BUT MOSTLY WORRIED ABOUT HER "AUNT LASHANDA". EXPLAINED IMPORTANCE OF QUITTING ALCOHOL.
--- NOTE | 2017-03-07 17:39 | NUR ---
pts vitals taken at this time.
--- NOTE | 2017-03-07 17:40 | NUR ---
PT TRANSFERED FROM CCU THIS AFTERNOON. HAS HAD FAMILY IN ROOM. SLOW TO RESPOND BUT ANSWERS APPROP. SL. VS STABLE. BED\CHAIR ALARM FOR IMPULSIVITY.
--- NOTE | 2017-03-07 19:30 | NUR ---
RECIEVED REPORT FROM DAY SHIFT NURSE. PT RESTING IN CHAIR. SISTER IN ROOM. NOTIFIED PATIENT AND SISTER IF PATIENT NEEDS TO GET UP FOR ANYTHING TO CALL THE NURSE. CALL LIGHT IN REACH.
--- NOTE | 2017-03-07 20:07 | NUR ---
PATIENT IN CHAIR, DOES NOT NEED ANYTHING AT THIS TIME. WHITEBOARD UPDATED, ROOM TIDIED. NEW GREEN SHEET PUT UP ON DOOR.
--- NOTE | 2017-03-07 21:29 | NUR ---
PT RESTING IN BED. TOILETING OFFERED, STATES SHE JUST WENT WITH ANOTHER NURSE. PT IS ALERT AND ORIENTED, SLOW TO RESPOND. STATES SHE IS HERE BECUASE SHE WAS HAVING SEIZURES. PATIENTS LUNGS CLEAR, HR REGULAR, ROUND BELLY, PATIENT STATES SHE FEELS MILDLY DISTENDED. BS AUSCULTATED. JAUNDICED SCLERA. NO C/O PAIN. PT DENIES NEEDS. CALL LIGHT IN REACH.
--- NOTE | 2017-03-07 22:18 | NUR ---
PATIENT SLEEPING. ABX INFUSING IN RUE. CALL LIGHT IN REACH.
--- NOTE | 2017-03-07 23:11 | NUR ---
PATIENT SLEEPING. ABX INFUSING. CALL LIGHT IN REACH. BED ALARM ON.
--- NOTE | 2017-03-08 00:28 | NUR ---
PATIENT SLEEPING. CALL LIGHT IN REACH. BED ALARM IN PLACE.
--- NOTE | 2017-03-08 02:30 | NUR ---
PT UP TO BATHROOM WITH ASSIST. PT INCONT OF STOOL ON THE WAY TO THE BATHROOM. PT VOIDED IN HAT. WASHED PT'S LEGS, CHANGED SOCKS AND SCDS. BIG DATA ANALYTICS LEAD ASSISTED PT TO STANDING POSITION WHILE I PERFORMED PERICARE. BRIEF CHANGED. PATIENT BACK TO BED. SCDS IN PLACE. HYDRATION OFFERED. PT DENIES FURTHER NEEDS. CALL LIGHT IN REACH.
--- NOTE | 2017-03-08 03:33 | NUR ---
ABX INFUSING. SCDS REMOVED SO PT MAY SIT UP ON EDGE OF BED TO HAVE A SNACK. PT CASEY CRACKERS AND PEANUT BUTTER DELIVERED. PT DENIES FURTHER NEEDS. CALL LIGHT IN REACH.
--- NOTE | 2017-03-08 04:22 | NUR ---
PATIENT CALLED TO HAVE GARBAGE THROWN AWAY.
--- NOTE | 2017-03-08 05:09 | NUR ---
PT UP TO BATHROOM WITH ASSIST. PT VOIDED AND HAD A LOOSE STOOL. BACK TO BED. SCDS IN PLACE. FITNESS AND WELLNESS MANAGER IN TO OBTAIN VS. PT DENIES FURTHER NEEDS. CALL LIGHT IN REACH.
--- NOTE | 2017-03-08 05:35 | NUR ---
SLEPT MOST OF THE NIGHT. INCONT OF STOOL X1. VS STABLE. BED ALARM. NO C/O PAIN. WOULD LIKE TO SHOWER TODAY.
--- NOTE | 2017-03-08 06:03 | NUR ---
LABS DRAWN OFF MIDLINE. REPLACED CLAVE. PT SLEEPING. ABX RESTARTED. CALL LIGHT IN REACH. BED ALARM ON.
--- NOTE | 2017-03-08 07:05 | NUR ---
BEDSIDE HANDOFF REPORT RECEIVED FROM HOUSEKEEPER RN. PT SLEEPING, LEFT UNDISTURBED.
--- NOTE | 2017-03-08 07:55 | NUR ---
pt assisted to BR at this time. pt now sitting up in the chair. breakfast ordered. no other requests at this time.
--- NOTE | 2017-03-08 09:00 | NUR ---
PT SITTING IN CHAIR EATING BREAKFAST. MORNING MEDICATIONS GIVEN. IV VANCO INFUSING. PT ORIENTED X3, UNSURE OF DATE, ABLE TO STATE MONTH. OCCUPATIONAL THERAPIST TO BEDSIDE. PT DENIES NEEDS AT THIS TIME.
--- NOTE | 2017-03-08 09:20 | NUR ---
PT SITTING IN CHAIR. PT DENIES PAIN. PT ON ROOM AIR, LUNG SOUNDS CLEAR, DENIES SOB. PT DENIES NAUSEA, TOLERATING REGULAR DIET, BOWEL TONES ACTIVE. PT WITH MIDLINE, DRESSING INTACT, INFUSING. PT WITHOUT EDEMA TO BLE, CMS INATCT. PT WITH FLAT AFFECT, SLOW TO RESPOND TO QUESTIONS. PT DENIES NEEDS AT THIS TIME, REQUESTING SHOWER TODAY, DISCUSSED PLAN OF CARE.
--- NOTE | 2017-03-08 10:12 | NUR ---
PT SALINE LOCKED FOR SHOWER, NURSE AIDE TO ASSIST PT WITH SHOWER.
--- NOTE | 2017-03-08 10:41 | NUR ---
pt assisted to the shower.
--- NOTE | 2017-03-08 11:40 | NUR ---
pPT WORKING WITH PHYSICAL THERAPIST.
--- NOTE | 2017-03-08 12:06 | NUR ---
pt sitting up in the chair eating lunch at this time.
--- NOTE | 2017-03-08 12:30 | NUR ---
PT SITTING IN CHAIR, EATING LUNCH. IV MAGNESIUM INFUSING. PT DENIES NEEDS AT THIS TIME.
--- NOTE | 2017-03-08 13:17 | NUR ---
pt assisted to the BR at this time with Kristin.
--- NOTE | 2017-03-08 13:51 | NUR ---
PT ASSISTED TO BATHROOM AND BACK TO CHAIR. PT DENIES NEEDS AT THIS TIME. LUNG SOUNDS CLEAR. IV MAG AND ZOSYN INFUSING. NO ACUTE CHANGES.
--- NOTE | 2017-03-08 14:20 | NUR ---
pts vitals taken at this time.
--- NOTE | 2017-03-08 14:52 | NUR ---
PT UP TO BATHROOM, ASSISTED BACK TO CHAIR. PT INSTRUCTED TO CALL FOR ASSISTANCE. FRIEND AT BEDSIDE.
--- NOTE | 2017-03-08 16:03 | NUR ---
PT ASSISTED TO BATHROOM AND BACL TO CHAIR. TEETH BRUSHED. PT DENIES OTHER NEEDS AT THIS TIME.
--- NOTE | 2017-03-08 18:07 | NUR ---
PT ALERT/ORIENTED. PT ON ROOM AIR, LUNG SOUNDS CLEAR. PT TOELRATING REGULAR DIET, GOOD APPETITE. IV MAG X3, VANCO AND ZOSYN. PT UP WITH SBA TO BATHROOM, VOIDING QS, PO DIURETICS DISCONTINUED. PT HAD BM TODAY.
--- NOTE | 2017-03-08 19:15 | NUR ---
ROUNDED CHARGE. PATIENT IS RESTING IN RECLINER TALKING ON HER CELLPHONE. PATIENT DENIES ANY COMMENTS, QUESTIONS, OR CONCERNS. CALL LIGHT IN REACH.
--- NOTE | 2017-03-08 19:35 | NUR ---
RECIEVED REPORT FROM DAY SHIFT NURSE. PATIENT RESTING UP IN CHAIR TALKING ON THE PHONE. STATES HER FRIEND WILL BE STAYING OVERNIGHT WITH HER. PATIENT DENIES NEEDS AT THIS TIME. CALL LIGHT IN REACH.
--- NOTE | 2017-03-08 20:47 | NUR ---
PT RESTING UP IN CHAIR. TOILETING OFFERED. PT ABLE TO DEMONSTRATE PROPER USE OF INCENTIVE SPIROMETER. LUNGS CLEAR, HR REGULAR, NO EDEMA, BS ACTIVE. PT STATES SHE FEELS MILDLY DISTENDED. PT IS ALERT AND ORIENTED. SLOW TO RESPOND. NO C/O PAIN. DENIES NEEDS. CALL LIGHT IN REACH.
--- NOTE | 2017-03-08 22:23 | NUR ---
PT RESTING UP IN CHAIR. FRIEND CAME IN TO STAY OVERNGIHT. HYDRATION OFFERED. TOILETING OFFERED. PT DENIES NEEDS. CALL LIGHT IN REACH.
--- NOTE | 2017-03-09 00:26 | NUR ---
PATIENT RESTING IN BED. FRIEND AT BEDSIDE. JUST GOT BACK FROM BATHROOM, PT STATES SHE VOIDED AND HAD A SMALL BM. DENIES NEEDS AT THIS TIME. CALL LIGHT IN REACH.
--- NOTE | 2017-03-09 02:32 | NUR ---
PATIENT SLEEPING IN BED. CALL LIGHT IN REACH.
--- NOTE | 2017-03-09 03:36 | NUR ---
PATIENT RESTING IN BED. TOILETING OFFERED. STATES SHE JUST WENT WITH THE BONE COOKING OPERATOR. PT IS ALERT AND ORIENTED. STILL SLOW TO RESPOND. LUNGS CLEAR, HR REG, NO EDEMA. PT STATES SHE STILL FEELS MILDLY "BLOATED." ABDOMEN IS SOFT/NONTENDER. NO C/O PAIN. PATIENT DENIES NEEDS AT THIS TIME. CALL LIGHT IN REACH.
--- NOTE | 2017-03-09 03:38 | NUR ---
REMOVED PRESSURE DRESSING OVER OLD PICC SITE. SMALL PUNCTURE WOUND NOTED, COVERED WITH STERILE GAUZE AND WRAPPED ARM WITH COBAN.
--- NOTE | 2017-03-09 04:24 | NUR ---
ASSISTED PATIENT TO BATHROOM WITH 1PA/NON-SLIP SOCKS. PATIENT TOLERATED AMBULATION WELL. NOW RESTING COMFORTABLY IN BED, BREATHING IS EVEN AND UNLABORED. DENIES FURTHER NEEDS AT THIS TIME. CALL LIGHT WITHIN REACH.
--- NOTE | 2017-03-09 05:49 | NUR ---
SLEPT MOST OF NIGHT. DIARRHEA HAS SLOWED DOWN. FRIEND STAYED OVERNIGHT WITH HER. DRAW LABS AT 0830 THROUGH MIDLINE INCLUDING VANC TROUGH.
--- NOTE | 2017-03-09 07:30 | NUR ---
REPORT GIVEN FROM MAGALI HUFFMAN AM. ASSISTED PATIENT TO BR WITH A STBY ASSIST. PATIENT VOIDED AND HAD SOFT STOOL. ASSISTED BACK TO BED. FRIEND ASLEEP ON COUGH IN ROOM.
--- NOTE | 2017-03-09 07:59 | NUR ---
GAVE HER A WASH CLOTH AND SHE WASHED HER FACE. SET HER UP FOR A SHOWER. NOW SHE IS SITTING ON SIDE OF BED EATING HER BREAKFAST.
--- NOTE | 2017-03-09 08:30 | NUR ---
LABS DRAWN VIA MIDLINE. PATIENT TOLERATED WELL. FLUSHED WITH HEPRIN AFTER LAB DRAW. ASSESSMENT COMPLETE. PATIENT LUNGS CLEAR IN UPPER LOBES. CRACKLES ASCULTATED. IS EDUCATION GIVEN. PATIENT ABLE TO GET 1200 ON IS. COUGING AFTERWARDS. ENCOURAGED DEEP BREATHING AND IS THROUGHOUT TODAY. PATIENT STBY ASSIST TO BR AND CHAIR FROM BED. TOLERATING MOVEMENT WELL. UNSTEADY AT TIMES. NEEDING STBY ASSIST. CALLING APPROPRIATLY WITH CALL LIGHT. OREINTED AT THIS TIME. SLOW TO RESPOND TO QUESTIONS BUT DOES ANSWER CORRECTLY. PATIENT TOLERATED BREAKFAST. WELL. DISCUSSED PLAN OF CARE. AWAITING CULTURES AND LAB RESULTS BEFORE MORNING [facility]
--- NOTE | 2017-03-09 10:29 | NUR ---
NEW ORDERS OF MEDICATIONS BASED ON LABS. DISCUSSED WITH PATIENT. TOLERATED ORAL POTASSIUM WELL. AWAITNG BOBBIO TO FINISH BEFORE MAG STARTED. PATIENT SITTING IN CHAIR. NO OTHER NEEDS AT THIS TIME.
--- NOTE | 2017-03-09 11:08 | NUR ---
magnesium started. patient sitting in chair working on is. no longer coughing with is use.
--- NOTE | 2017-03-09 11:32 | NUR ---
PATIENT AMBULATING IN LOPEZ. TOLERATING WELL. NO OTHER COMPLAINTS AT THIS TIME.
--- NOTE | 2017-03-09 12:21 | NUR ---
PATIENT ASSISTED TO BR WITH A STBY ASSIST. PATIENT TOLERATED MOVING WELL. ASSISTED BACK TO BED. PREPARED ANTIBIOTIC BUT HOLDING UNTIL MAGNESIUM FINISHING. UPDATED PATIENT OF PLAN OF IV MEDICATIONS. PATIENT REQUESTING TO GET WASHED UP. PLAN ON DOING BED BATH DUE TO IV INFUSIONS AT THIS TIME.
--- NOTE | 2017-03-09 12:51 | NUR ---
rounded with dr. oconnor in room. updated patient on plan of care. new order for more labs this evening at 1999. continue with iv mag. and antibiotics.
--- NOTE | 2017-03-09 14:08 | NUR ---
bedbath given.patient washed upper and lower body. hair washed. lotion applied. patient tolerated well. stating that it felt a lot better after bath
--- NOTE | 2017-03-09 14:12 | NUR ---
PT SITTING IN CHAIR, REQUESTED TICKET PRINTER AND TAGGER TO VISIT. I TOLD HER I WOULD LET THEM KNOW, WHICH I DID. WILL FOLLOW NEEDED
--- NOTE | 2017-03-09 14:13 | NUR ---
SUMMER THE NURSE GAVE HER A BED BATH AND SHAMPOODED HER HAIR AND LOTION HER ARMS AND LEGS.
--- NOTE | 2017-03-09 15:30 | NUR ---
patient in room sitting in chair. tolerating well. no other needs at this time.
--- NOTE | 2017-03-09 16:38 | NUR ---
PATIENT AMBULATED THREE LAPS IN LOPEZ. TOLERATING OKAY. NEEDING TO STOP A FEW TIMES TO CATCH HER BREATH. ASSISTED BACK TO BED. ANTIBIOTIC CONTINUES TO RUN. PLAN TO DO MAG. RIDER ONCE ANTIBIOTIC IS DONE INFUSING.
--- NOTE | 2017-03-09 17:50 | NUR ---
FINAL MAG RIDER STARTED PER DR. SLAUGHTER ORDER. PATIENT SITTING IN CHAIR EATING DINNER.
--- NOTE | 2017-03-09 17:54 | NUR ---
pts vitals taken at this time.
--- NOTE | 2017-03-09 18:03 | NUR ---
PATIENT HAS HAD THREE 3 GRAM MAGNESSIUM RIDERS. VANCO AND ZOSYN FOR ANTIBIOTICS. HAS ORDERS TO COMPLETE A 1 L NS BAG. TOLERATING REGULAR DIET. AMBULATED IN THE LOPEZ X2. PATIENT HAS BEEN CALLING WELL TO USE THE BR. STEADY ON HER FEET WITH A 1 ASSIST. ALL MEDICATIONS HAVE RUN LATE DUE TO MAG RIDERS AND ZOSYN NOT BEING COMPATABLE.
--- NOTE | 2017-03-09 19:25 | NUR ---
RECIEVED REPORT FROM DAY SHIFT NURSE. PATIENT RESTING IN BED. IVF INFUSING W/O DIFFICULTY. SCDS IN PLACE. PATIENT DENIES NEEDS. CALL LIGHT IN REACH.
--- NOTE | 2017-03-09 20:08 | NUR ---
RN DRAWING LABS OFF MIDLINE.
--- NOTE | 2017-03-09 20:33 | NUR ---
PATIENT UP TO [facility] WITH ASSIST. VOIDED, BACK TO BED. LUNGS CLEAR, HR REGULAR, NO EDEMA, PALPABLE PEDAL PULSES, ACTIVE BS. NO C/O PAIN. DENIES NEEDS. CALL LIGHT IN REACH.
--- NOTE | 2017-03-09 22:30 | NUR ---
PT UP TO BATHROOM WITH ASSIST.
--- NOTE | 2017-03-10 00:53 | NUR ---
ASSISTED PT TO BATHROOM. PT UNSTEADY AMBULATING. BACK TO BED. IVF INFUSING W/O DIFFICULTY. PT STATES SHE IS A LITTLE UPSET BECUASE HER "FRIEND" DID NOT STAY OVER WITH HER. PT DENIES FURTHER NEEDS. CALL LIGHT IN REACH.
--- NOTE | 2017-03-10 02:15 | NUR ---
ASSISTED PT TO BATHROOM.
--- NOTE | 2017-03-10 04:42 | NUR ---
PATIENT SLEEPING. CALL LIGHT IN REACH.
--- NOTE | 2017-03-10 06:51 | NUR ---
PATIENT RESTING WITH EYES CLOSED IN BED. CALL LIGHT IN REACH.
[2017-03-10] MEDS ORDERED: NADOLOL40 MG PO (11:08)
[2017-03-10] MEDS ORDERED: XIFAXAN550 MG PO (11:08)
--- NOTE | 2017-03-10 12:26 | NUR ---
PT IN CHAIR. SET HER UP FOR LUNCH. COMPLETE LINEN CHANGE
--- NOTE | 2017-03-10 12:46 | NUR ---
TOOK PT VITALS FOR DC
--- NOTE | 2017-03-10 12:49 | NUR ---
GOT PATIENT OFF OF BEDPAN. PERFORMED ROSELIA CARE.
== END 2017-03-10 13:25 | disposition home or self-care (01) | DRG 896 ==
LOC: ED 10:57 → CCU 14:24 → MS 03-07 16:12
PROVIDERS: ADMIT Internal Medicine
PROC: HZ2ZZZZ Detoxification Services for Substance Abuse Treatment (ICD-10-PCS; principal; 2017-03-01)
PROC: 5A1945Z Respiratory Ventilation, 24-96 Consecutive Hours (ICD-10-PCS; 2017-03-01)
PROC: 0BH17EZ Insertion of Endotracheal Airway into Trachea, Via Natural or Artificial Opening (ICD-10-PCS; 2017-03-01)
PROC: 02HV33Z Insertion of Infusion Device into Superior Vena Cava, Percutaneous Approach (ICD-10-PCS; 2017-03-02)
PROC: 0W9G3ZX Drainage of Peritoneal Cavity, Percutaneous Approach, Diagnostic (ICD-10-PCS; 2017-03-07)
DX: F10.239 Alcohol dependence with withdrawal, unspecified (principal); J96.01 Acute respiratory failure with hypoxia; J69.0 Pneumonitis due to inhalation of food and vomit; G93.41 Metabolic encephalopathy; K76.6 Portal hypertension; E87.2 Acidosis; N17.9 Acute kidney failure, unspecified; E22.2 Syndrome of inappropriate secretion of antidiuretic hormone; D61.818 Other pancytopenia; K70.31 Alcoholic cirrhosis of liver with ascites; K70.40 Alcoholic hepatic failure without coma; E87.6 Hypokalemia; K80.20 Calculus of gallbladder without cholecystitis without obstruction; E83.42 Hypomagnesemia
CPT/HCPCS: 36415; 36569; 36600; 51702; 51798; 70450; 71010; 71250; 74176; 80048; 80053; 80076; 80202; 81001; 82042; 82105; 82140; 82607; 82728; 82746; 82803; 83540; 83605; 83690; 83735; 83930; 83935; 84134; 84425; 84466; 84484; 84703; 85025; 85045; 85610; 86301; 87040; 87070; 87075; 87077; 87186; 87205; 89051; 93005; 93010; 93306; 94002; 94003; 94640; 94660; 94668; 96361; 96365; 96367; 96375; 96376; 97110; 97116; 97161; 97165; 99291; G0480; J2060; J2250; J2405; J2543; J2560; J2704; J3360; J3370; J3411; J3475; J3480; J7030; J7042; J7060; J7120; P9047

== ENCOUNTER 2017-05-03 12:56 | Emergency (ER) | payer OTHER ==
[~2017-05-03] VITALS: Ht 170.2 cm; Wt 63.5 kg
[~2017-05-03 12:56] MED LIST changes: +NADOLOL40 MG PO
== END 2017-05-03 15:00 | disposition home or self-care (01) ==
LOC: ED 12:56
DX: F10.230 Alcohol dependence with withdrawal, uncomplicated (principal); I10 Essential (primary) hypertension; Z79.899 Other long term (current) drug therapy; Z88.8 Allergy status to other drugs, medicaments and biological substances; Z88.1 Allergy status to other antibiotic agents; Z88.6 Allergy status to analgesic agent
CPT/HCPCS: 99284

== ENCOUNTER 2017-12-22 18:10 | Emergency (ER) | payer OTHER ==
[~2017-12-22] VITALS: Ht 170.2 cm; Wt 63.5 kg
--- OUTSIDE RECORDS SUMMARY | 2017-12-22 18:14 | XMS ---
PreManage Notification: [place] Operator Events No recent Security Events currently on file CRITERIA MET - Group Notification - POLST - [facility] - 3 Facilities in 90 Days - [facility] - 2 Visits in 30 Days CARE PROVIDERS DOCTOR [facility] Current PHONE: Unknown Alvino has no Care Guidelines for this patient. E.D. VISIT COUNT (12 MO.) 1 [facility] 1 [facility] 2 [facility] 3 [facility] [place] . TOTAL 7 NOTE: Visits indicate total known visits. ED/UCC VISIT TRACKING (12 MO.) 12/22/2017 18:10 [facility] TYPE: Emergency COMPLAINT: - NOT FEELING WELL 11/27/2017 12:27 [facility] TYPE: Emergency DIAGNOSES: - Altered mental status, unspecified - glf - Encephalopathy, unspecified 11/20/2017 12:51 [facility] TYPE: Emergency DIAGNOSES: [id number]. [id number]. Alcoholic cirrhosis of liver with ascites 19591. Acute cystitis with hematuria 05/03/2017 20:30 [facility]: Emergency DIAGNOSES: - Seizure - Seizure (Adult - Alcoholic) - Alcohol dependence with withdrawal delirium - Hypomagnesemia - Alcohol dependence with withdrawal, unspecified 05/03/2017 12:56 [facility] TYPE: Emergency COMPLAINT: - ALCOHOL WITHDRAWL DIAGNOSES: - Allergy status to other drugs, medicaments and biological substances status - Alcohol dependence with withdrawal, uncomplicated - Essential (primary) hypertension - Allergy status to analgesic agent status - Unspecified convulsions - Allergy status to other antibiotic agents status - Other fci (current) drug therapy 03/01/2017 10:58 [facility] TYPE: Emergency COMPLAINT: - ALTERED LOC 12/31/2016 14:20 [facility]: Emergency DIAGNOSES: - Seizure (Adult - Alcoholic) - seizures INPATIENT VISIT TRACKING (12 MO.) 11/27/2017 12:27 [facility] TYPE: Medical Surgical DIAGNOSES: - Encephalopathy, unspecified - Altered mental status, unspecified 05/03/2017 20:30 [facility] [place] TYPE: Medical Surgical DIAGNOSES: - Other pancytopenia - Anemia, unspecified - Hepatic failure, unspecified without coma - Hypo-osmolality and hyponatremia - Alcohol dependence with withdrawal delirium - Alcohol dependence with withdrawal, unspecified - Alcoholic cirrhosis of liver with ascites - Alcohol dependence with withdrawal, uncomplicated - Hypomagnesemia 12/31/2016 14:20 [facility] TYPE: Intensive Care DIAGNOSES: - Alcoholic cirrhosis of liver with ascites - Hepatic failure, unspecified without coma - Altered mental status, unspecified - Spontaneous bacterial peritonitis - Alcohol dependence with withdrawal, uncomplicated - Anemia, unspecified - Hypo-osmolality and hyponatremia - Pneumonia, unspecified organism - Alcohol dependence with intoxication, unspecified [email or web address]
[2017-12-22] MEDS ORDERED: SPIRONOLACTONE50 MG PO (21:49)
[2017-12-22] MEDS ORDERED: LACTULOSE10 GM/15 M PO (21:49)
[2017-12-22] MEDS ORDERED: CANE1 EACH MISC (21:50)
[2017-12-22] MEDS ORDERED: ULTRA-LIGHT RO1 EACH MISC (21:50)
== END 2017-12-22 22:15 | disposition home or self-care (01) ==
LOC: ED 18:10
DX: K74.60 Unspecified cirrhosis of liver (principal); I10 Essential (primary) hypertension; Z87.891 Personal history of nicotine dependence; Z88.6 Allergy status to analgesic agent; Z88.1 Allergy status to other antibiotic agents; Z88.8 Allergy status to other drugs, medicaments and biological substances; Z88.2 Allergy status to sulfonamides
CPT/HCPCS: 80053; 81001; 82140; 85025; 85610; 99285; G0480

== ENCOUNTER 2019-04-27 18:24 | Emergency (ER) | payer OTHER ==
[~2019-04-27] VITALS: Ht 170.2 cm; Wt 63.5 kg
[~2019-04-27 18:24] MED LIST changes: +CANE1 EACH MISC; +ULTRA-LIGHT RO1 EACH MISC
[2019-04-27] MEDS ORDERED: FUROSEMIDE20 MG PO (20:42)
[2019-04-27] MEDS ORDERED: SPIRONOLACTONE50 MG PO (20:42)
== END 2019-04-27 21:04 | disposition home or self-care (01) ==
LOC: ED 18:24
DX: K74.60 Unspecified cirrhosis of liver (principal); R18.8 Other ascites; Z87.891 Personal history of nicotine dependence
CPT/HCPCS: 80053; 81001; 83690; 85025; 85610; 99284

== ENCOUNTER 2019-05-28 13:30 | Emergency (ER) | payer OTHER ==
[~2019-05-28] VITALS: Ht 170.2 cm; Wt 63.9 kg
== END 2019-05-28 17:11 | disposition home or self-care (01) ==
LOC: ED 13:30
DX: K74.60 Unspecified cirrhosis of liver (principal); R18.8 Other ascites; I10 Essential (primary) hypertension; D64.9 Anemia, unspecified; Z88.6 Allergy status to analgesic agent; Z88.1 Allergy status to other antibiotic agents; Z88.8 Allergy status to other drugs, medicaments and biological substances; Z88.2 Allergy status to sulfonamides; Z79.899 Other long term (current) drug therapy
CPT/HCPCS: 80053; 81001; 82140; 83690; 83735; 85025; 99284

== ENCOUNTER 2019-07-15 20:29 | Inpatient (IN) | payer OTHER ==
[~2019-07-15] VITALS: Ht 170.2 cm; Wt 55.1 kg
--- NOTE | 2019-07-16 01:02 | NUR ---
ADMIT TO CCU PER STRETCHER FROM ED FOR ANEMIA, HYPONATREMIA. HAS HX OF ETOH USE AND HAS UNDERGONE WITHDRAWLS IN THE PAST. IS SOMEWHAT SLOW TO RESPOND TO QUESTIONS AND IS POOR HISTORIAN. ABLE TO TAKE PO FLIDS AND MEDS WITHOUT PROBLEM. SMALL AMT BLOOD NOTED ON SHEETS NEAR BOTTOM BUT UNABLE TO DETERMINE SOURCE AT THIS TIME.
--- NOTE | 2019-07-16 01:45 | NUR ---
BLOOD TRANSFUSING FOR 15 MINUTES. PT VS REMAIN WNL. NO COMPLAINTS OF DIZZINESS OR PAIN. TURNED UP TO 150 MLS/HR AT THIS TIME. WILL CONTINUE TO CLOSELY MONITOR FOR S/S OF TRANSFUSION REACTION
--- NOTE | 2019-07-16 02:07 | NUR ---
PT WAS INCONTINENT OF URINE. COMPLETE BED CHANGE REQUIRED. PT UNABLE TO ASSIST WITH REPOSITIONING IN BED. SKIN EXCORIATED IN ROSELIA AREA, SMALL OPEN AREA ABOVE ANUS. BONY PROMINENCES ON BACK HAVE BRUISING. PT STATES THEY ARE OLD INJURIES.
--- NOTE | 2019-07-16 02:35 | NUR ---
PT TOLERATING BLOOD TRANSFUSION WELL. HR RATE AND BLOOD PRESSURE REMAIN WNL. BLOOD TURNED UP TO 175 ML/HR
--- NOTE | 2019-07-16 03:28 | NUR ---
Pt was incontinent of urine. Pericare was provided. Pt. was repositioned and is visible from the nurses station. Blood continues to infuse, no adverse reactions noted. Will continue to closely monitor.
--- NOTE | 2019-07-16 04:10 | NUR ---
SECOND UNIT BLOOD INFUSING WITHOUT PROBLEM.
--- NOTE | 2019-07-16 05:09 | NUR ---
PT INC OF URINE, ATTENDS CHANGED AND HIPS FLOATED. PT IS MORE DROWSY AT THIS TIME, SLEPT THROUGH ATTENDS CHANGE.
--- NOTE | 2019-07-16 05:58 | NUR ---
BLOOD INFUSED WITHOUT PROBLEM. LAB DRAWN. PT WILL OPEN EYES TO NAME AND WILL NOD HEAD AND SOFTLY ANSWER SOME QUESTIONS. WILL HOLD ATIVAN AT THIS TIME.
--- NOTE | 2019-07-16 07:30 | NUR ---
REPORT RECIEVED. RESTFUL IN BED.
--- NOTE | 2019-07-16 08:00 | NUR ---
ASSESSMENT DONE. WILL FOLLOW SOME COMMANDS. IS SLOW TO RESPONE. TALKED WITH PATIENT ABOUT POC. UNSURE IF PATIENT IS UNDERSTANDING.
--- NOTE | 2019-07-16 08:09 | NUR ---
PT resting in bed. PT obtunded and responded to verbal commands, but did not speak or open eyes. Took vitals and left pt. resting in bed, bed lowered with call light within reach.
--- NOTE | 2019-07-16 08:30 | NUR ---
INCONT OF URINE AND SMALL AMOUNT OF STOOL. ATTENDS CHANGED. BURN LIKE AREA NOTED IN RECAL AREA. CREAM APPLIED.
--- NOTE | 2019-07-16 08:50 | NUR ---
DR. MOORE HERE TO SEE PATIENT. ORDERS RECIVED. PATIENT WILL SAY FEW WORDS AT TIMES. WILL HOLD PO MEDS UNTIL MORE AWAKE.
--- NOTE | 2019-07-16 08:50 | NUR ---
Notified by Paulina Hi, occupational therapy supervisor. Farmworker Machine Logan Mena is here with information regarding Shaila. Met office Mena in ER waiting room. He states he has beens searching for Shaila for 5 days as he has had calls from her family in [facility], and [facility]. Family are very concerned for her. He states he had many leads over the last few days, but each time he missed her where she was staying. He received a call last night from her Uncle Roman Brunner stating she was with him, but intoxicated and not doing well. At 8 pm he received another call and text stating they were bringing her to the hospital ER. She had been drinking nonstop for 5 days and he was unable to take care of her. Officer asked if she was + for drugs and I stated I was not able to release this information. He asked I give her his card as she had been couch surfing and is homeless. He states there are not any programs to help homeless people/or some wanting to detox on the [facility]. He would like her to have his information if she needs assistance in the future. He states some of the people she was with are heavily into hard drugs, felons, and dangerous. In to see Shaila. She is awake and has a bruised/black eye on the R side of her face. Updated I have spoke with Officer Mena and he would like her to have his card. She does a very small nod. Asked how she is feeling and if she can speak with me now. She is not able to verbally respond, but tracks with her eyes and attempts to nod. Informed I will return tomorrow and visit with her then if she is able.
--- NOTE | 2019-07-16 10:15 | NUR ---
TOOK PO MEDICATIONS WELL. NO COUGH NOTED WITH SWALLOWING. FEW BITES OF PUDDING GIVEN. REPOSITIONED. ASKED PATIENT IF SHE FELT ANXIOUS, NODDED HEAD IN YES MOTION. REMAINS SOMEWHAT SOMULENT. NOT MEDICATED AT THIS TIME. WILL CONTINUE TO MONITOR.
--- NOTE | 2019-07-16 11:42 | NUR ---
PO ATIVAN GIVEN. ASSESSMENT UNCHANGED.
--- NOTE | 2019-07-16 12:23 | NUR ---
JAIME SAAVEDRA REQUESTED I NOT VISIT AT PRESENT TIME. FEELS THAT PT NEEDS TO BE LEFT ALONE AT THE MOMENT AFTER THE AM SHE HAS HAD.
--- NOTE | 2019-07-16 12:45 | NUR ---
STUDENT NURSE FED PATIENT ENSURE. PATIENT TOLERATING WELL. NO ISSUES WITH SWALLOWING. WILL SAY FEW WORDS. EYES ARE MOSTLY SHUT, WILL OPEN EYES BRIEFLY RARELY.
--- NOTE | 2019-07-16 13:30 | NUR ---
Sri WATTS RN HERE TO PLACE MIDLINE .
--- NOTE | 2019-07-16 14:00 | NUR ---
TOOK APPLESAUSE,ENSURE,SHERBERT, WATER. FEED BY STUDENT NURSE.
--- NOTE | 2019-07-16 14:10 | NUR ---
MIDLINE PLACED W/O DIFFICULTY TO LEFT INNER UPPER ARM.
--- NOTE | 2019-07-16 14:18 | NUR ---
MIDLINE INSERTION NOTE: ASKED BY DR. MOORE TO EVAL PATIENT FOR POTENTIAL MIDLINE OR PICC PLACEMENT. AFTER REVIEWING THE CHART, DISCUSSING WITH THE BEDSIDE RN, AND TALKING WITH THE PATIENT MUCH POSSIBLE, NO ABSOLUTE CONTRAINDICATIONS WERE IDENTIFIED. PATIENT WAS UNABLE TO SIGN A CONSENT FORM, BUT NOT NECESSARY WITH MIDLINE PLACEMENT. MIDLINE WAS DECIDED TO BE UTILIZED. OF NOTE, PATIENT HAS HAD PREVIOUS MIDLINES AND PICC LINES IN THE PAST, MOST RECENTLY IN 2017. PATIENT'S LEFT ARM WAS EVALATED FIRST USING [facility]. PATIENT'S BRACHIAL AND BASILIC VEINS WERE EASILY IDENTIFIED AND BOTH GREATER THAN 8 FR BY [facility]. PATIENT'S CEPHALIC VEIN WAS HARDLY ABLE TO BE IDENTIFIED AND NOT A GOOD CANDIDATE. AFTER FOLLOWING CDC RECOMMENDED GUIDELINES FOR STERILE TECHNIQUE AND PREP, PT'S LEFT ARM WAS PREPARED AND ACCESS WAS OBTAINED ON THE FIRST ATTEMPT INTO THE BRACHIAL VEIN. DARK, NON PULSATILE BRISK BLOOD WAS EASILY ASPIRATED AND FLOWING. GUIDEWIRE WAS THEN ADVANCED WITHOUT PROBLEM. NEXT THE INTRODUCER WAS ADVANCED OVER GUIDEWIRE WITHOUT DIFFICULTY. PT'S MIDLINE WAS THEN PLACED INSIDE INTRODUCER. MIDLINE WAS TRIMMED TO 19 CM PRIOR TO INSERTION. A STERILE DRESSING WAS APPLIED WITH A SECUREMENT DEVICE AND BIO PATCH. PATIENT TOLERATED THIS WHOLE PROCEDURE WELL, BUT DOES SEEM TO WANT TO KEEP HER ARMS CONTRACTED IN TO HER BODY. BLOOD ALSO EASILY ASPIRATES FROM MIDLINE, AND FLUSHES VERY EASILY. REPORT GIVEN TO RN AND EDUCATION MATERIAL LEFT FOR PATIENT REGARDING HER MIDLINE.
--- NOTE | 2019-07-16 14:30 | NUR ---
Call from Dorothea at [facility]. She requests update as Dr. Patel is pt. pcp. Update given for continuation of care. She requests I ask pt when she is able to comprehend, if she would be willing to go to a SNF or to [facility]. I will discuss with pt when she is able.
--- NOTE | 2019-07-16 15:00 | NUR ---
INC OF URINE AND STOOL. UP TO COMMODE WITH ASSIST TO EXPELL MORE LIQUID DARK BROWN STOOL. IS COOPERATIVE. FOLLOWING COMMANDS. BACK TO BED WITH ASSIST. SOMEWHAT SHAKEY AND VERY WEAK.
--- NOTE | 2019-07-16 17:15 | NUR ---
DR. MOORE UPDATED ON PATIENT HR, BP AND DOSES OF ATIVAN GIVEN. ORDERS RECIEVED TO GIVE LACTOLOSE NOW THE GIVNE ATIVAN 2 MG PO FOLLOWED BY ATIVAN 2 MG IV. THIS DONE. PATIENT REPOSITIONED. ABD IS MORE DISTENDED THIS AFTERNOON THAN THIS MORNING.
--- NOTE | 2019-07-16 18:00 | NUR ---
MORE RESTFUL SINCE ATIVAN GIVEN. HEART RATE REMAINS 120-140. NO TREMORS NOTED.
--- NOTE | 2019-07-16 21:05 | NUR ---
HAS BEEN MOSTLY SLEEPING WILL AWAKEN TO VOICE. WILL FOLLOW SOME REQUESTS. T 101, BLANKETS OFF. INC URINE AND STOOL. ROSELIA AREA EXCORIATED, MOISTURE BARRIER APPLIED AFTER AREA CLEANED AND PATTED DRY. PT REPOSITIONED SELF AFTER STAFF DID. HAS ETELVINA HOSE AND HEEL PROTECTORS IN PLACE. DR MOORE CALLED RE TEMP.
--- NOTE | 2019-07-16 22:23 | NUR ---
17 F HEARD CATH INSERTED WITHOUT PROBLEM AND RETURN OF CLEAR YELLOW URINE. SPECIMAN SENT. BLOOD CULTURES DRAWN AND LABS DRAWN. ABLE TO TAKE PO FLUIDS AND HS ATIVAN GIVEN.
--- NOTE | 2019-07-16 23:37 | NUR ---
MORE AWAKE, WANTING TO WATCH TV. T 100.3, PT TOOK COVERS OFF. HR 146, BP 166/103, GIVEN 5MG LOPRESSOR IV. REPOSITIONED.
--- NOTE | 2019-07-17 00:39 | NUR ---
SOMEWHAT RESTLESS AND BP ELEVATED. SPOKE WITH DR. MOORE. PT GIVEN2 MG ATIVAN IV.
--- NOTE | 2019-07-17 01:54 | NUR ---
KEEPS EYES CLOSED MOST OF TIME BU DOES OCC REACH FOR THINGS AND PULL AT COVERS. GIVEN SCHEDULEED PO ATIVAN. ATTENDS DRY.
--- NOTE | 2019-07-17 02:51 | NUR ---
HR 120'S, IS MORE RESTLESS AND PICKING MORE.GIVEN 2MG ATIVAN IV.
--- NOTE | 2019-07-17 03:22 | NUR ---
CONT TO PICK AT COVERS ETC AND HR 130. GIVEN 2MG ATIVAN IV.
--- NOTE | 2019-07-17 04:31 | NUR ---
PT CONT TO BE RESTLESS AND PICKING AT THINGS WITH EYES CLOSED. HR 120'S. GIVEN 2MG ATIVAN IV.
--- NOTE | 2019-07-17 04:56 | NUR ---
TRYING TO TAKE OFF GOWN. GIVEN 2MG ATIVAN IV
--- NOTE | 2019-07-17 05:47 | NUR ---
WAS GIVEN 2MG ATIVAN IV AT 0455 FOR CONT ETOH WITHDRAWL. HR 115-120 AND BP 167/105, GIVEN 5MG LOPRESSOR IV.
--- NOTE | 2019-07-17 07:30 | NUR ---
PATIENT SHIFT REPORT RECIEVED FROM MARKETING OPERATIONS SPECIALIST RN. PATIENT RESTING IN BED. WILL CONTINUE TO CLOSELY MONITOR.
--- NOTE | 2019-07-17 08:35 | NUR ---
INTO PT ROOM FOR MORNING ASSESSMENT. PT SUPINE IN BED. PT APPEARS DROWSY AND GIVES MINIMAL REPLY TO QUESTIONS. PT DEMONSTRATED GENERALIZED WEAKNESS IN ALL EXTREMETIES WITH ASSET CARD CLERK AND PUSH/PULL. PT ARMS WERE DIFFICULT TO STAIGHTEN TO ASSESS IVs. ASCITIES NOTED IN PT ABDOMEN WITH ACTIVE BOWEL TONES. PT DENIES ANY HUNGER FOR BREAKFAST. BED IN LOWEST POSITOIN AND CALL LIGHT WITHIN REACH.
--- NOTE | 2019-07-17 09:00 | NUR ---
PATIENT ASSESSMENT COMPLETED. PATIENT IS DROWSY AT THIS TIME, BUT IS ORIENTED TO NAME AND WHERE SHE IS. EXPLAINED TO PATIENT SHE IS IN THE HOSPITAL FOR WITHDRAWLS. WILL REPOSITION PATIENT AND GET AM MEDICATIONS. WILL CONTINUE TO CLOSELY MONITOR.
--- NOTE | 2019-07-17 10:26 | NUR ---
INTO PT ROOM FOR MORNING MEDS. PT STILL DROWSY BUT ABLE TO SIT UP IN BED. PILLS TAKEN WITH PUDDING. PT BEGAN TO REFUSE LACTULOSE HALF WAY THROUGH GIVING. WILL GIVE PT A BREAK AND TRY TO CONTINUE WITH LACTULOSE SOON. BED IN LOWEST POSITION AND CALL LIGHT WITHIN REACH.
--- NOTE | 2019-07-17 10:51 | NUR ---
Attempted to speak with Shaila. She is sleeping soundly, has been medicated with lorazepam. Not awakened.
--- NOTE | 2019-07-17 11:28 | NUR ---
ATTEMPT TO GIVE MORE OF LACTULOSE. PT HAD DIFFICULTY SWALLOWING INITIAL MOUTHFUL AND BEGAN COUGHING, DESAT DOWN TO 89%. PT SAT UP FURTHER IN BED AND GIVEN SIP OF WATER. PT ABLE TO CLEAR THROUGHT AND SWALLOW. O2 SATURATION UP TO 97% ON RA.
--- NOTE | 2019-07-17 12:00 | NUR ---
PATIENTS BED BATH COMPLETED AND BEDDING CHANGED. PATIENT TOLERATED WELL. AM MEDICATIONS WERE GIVEN, BUT WAS A SLOW PROCESS. PATIENT TOELRATED WELL. PRN ATIVAN NEEDED FOR INCREASED CIWA PER MD MOORE. NO OTHER NEEDS AT THIS TIME. WILL CONTINUE TO CLOSELY MONITOR.
--- NOTE | 2019-07-17 12:39 | NUR ---
JAIME ROCA INFORMED ME THAT PT IS UNABLE TO HAVE VISIT FROM ME AT THIS TIME. WILL FOLLOW UP AGAIN
--- NOTE | 2019-07-17 12:46 | NUR ---
PT GIVEN BED BATH AND BRIEF CHANGED. ROSELIA AREA MOIST. EXTRA SMALL BM NOTED. BARRIER CREAM APPLIED TO THE COCCYX AND ALONG GROIN. CATHETER CARE PROVIDED. PT ABLE TO SIT UP AND TAKE REMAINING LACTULOSE. SEIZURE PADS PLACED ON BED RAILS PRECAUTION. BED IN LOWEST POSITION AND CALL LIGHT WITHIN REACH.
--- NOTE | 2019-07-17 13:36 | NUR ---
PATIENT IS PICKING AT CORDS AND HER HR AND BP ARE ELEVATED AT THIS TIME. PATIENT ASKING FOR BEER. WILL GIVE PRN ATIVAN PER MD MOORE FOR CIWA SCALE ORDERS. REPOSITIONED PATIENT AND PATIENT TOLERATED WELL. WILL CONTINUE TO CLOSELY MONITOR.
--- NOTE | 2019-07-17 14:00 | NUR ---
PATIENT NOW RESTING AT THIS TIME. PATIENT HR LOW 100'S. PATIENT DENIES ANY OTHER NEEDS AT THIS TIME. STUDENT DEANDREN IN TO ASSIST WITH PATIENS NEEDS. WILL CONTINUE TO CLOSELY MONITOR.
--- NOTE | 2019-07-17 15:06 | NUR ---
PT GIVEN PO ATIVAN AND PRN ATIVAN FOR WITHDRAWAL. PT TRYING TO PUT LEGS OUT OF BED AND BP AND HEART RATE ELEVATED. PT REPOSITIONED. PT GIVEN SIPS OF ENSURE. NO FURTHER NEEDS AT THIS TIME. BED IN LOWEST POSITION AND CALL LIGHT WITHIN REACH.
--- NOTE | 2019-07-17 16:30 | NUR ---
PATIENT AWAKE AT TIMES. PATIENT THINKS SHE IS AT [facility]. REORIENTED APPROPRIATE. WILL GIVE PRN ATIVAN NEEDED. WILL CONTINUE TO CLOSELY MONITOR.
--- NOTE | 2019-07-17 18:15 | NUR ---
IN TO GIVE PRN DOSE OF ATIVAN FOR INCREASED CIWA. PATIENT IS ALERT TO NAME, BUT DOESNT KNOW WHERE SHE IS. REORIENTED TO PLACE AND SITUATION. NO OTHER NEEDS AT THIS TIME. WILL CONTINUE TO CLOSELY MONITOR.
--- NOTE | 2019-07-17 18:19 | NUR ---
INTO PT ROOM TO TAKE VS AND EMPTY HEARD. PT APPEARS RESTLESS IN BED AND HAS SET OFF BED ALARM TRYING TO PUT LEGS OVER SIDE OF BED. PT REACHING OUT AND PULLING ON BP CUFF. PRN ATIVAN GIVEN FOR WITHDRAWAL SYMPTOMS. HEART RATE IN 110S AND BP ELEVATED. WHEN ASKED IF SHE KNEW WHERE SHE WAS PT ANSWERED "I AM AT THE [facility]". PT REORIENTED TO LOCATION, TIME, AND SITUATION. NO FURTHER NEEDS AT THIS TIME. WILL CONTINUE TO MONITOR. BED IN LOWEST POSTION AND CALL LIGHT WITHIN REACH.
--- NOTE | 2019-07-17 19:45 | NUR ---
PT IS RESTING WITH EYES CLOSED, RR IS EVEN AND NONLABORED, VS STABLE. PT IS VISABLE FROM NURSES STATION.
--- NOTE | 2019-07-17 21:40 | NUR ---
IN ROOM TO ASSESS PT AND ADMINISTER MEDICATIONS. PT TOOK PO MEDICATIONS WELL, ASPIRATIONS PRECAUTIONS FOLLOWED. SHE HAD SOME WATER AND ENSURE ALSO. PERIANAL AREA IS EXCORIATED, BARRIER CREAM APPLIED AFTER PT HAD SM LIQUID BM. REPOSITIONED PT IN BED. CIWA IS 13 AT THIS TIME, ADMINISTERED SCHEDULED ATIVAN AND WILL GIVE IV ATIVAN IF PT DOES NOT IMPROVE. MIDLINE FLUSHES GREAT WITH GOOD BLOOD RETURN, IV FLUID IS INFUSING CONTINUOUSLY THROUGH MIDLINE WHICH MEASURES 18.5 CM. TEDHOSE AND HELL PROTECTORS ARE IN PLACE. SEE ASSESSMENT FOR MORE DETAILS. PT IS VISABLE FROM NURSES STATION.
--- NOTE | 2019-07-17 22:00 | NUR ---
WITH JAIME JOE WE WENT INTO PT'S ROOM AND CHANGED HER ATTENDS DUE TO A SMEAR OF BM. REPOSITIONED HER IN BED. EMPTIED HER HEARD. EMPTIED GARBAGES. PT NEEDS NOTHING AT THIS TIME. BED ALARM ON.
--- NOTE | 2019-07-17 22:25 | NUR ---
PT'S HR AND BP ARE ELEVATED AND PT IS PULLING AT PADS ON THE BED SAYING "I NEED TO GET UP" PT WAS NOT REDIRECTABLE AND CONTINUED TO TRY TO GET OUT OF BED AND PULLING AT THINGS. ADMINISTERED IV ATIVAN PER ORDERS. WILL REASSESS AND CONTINUE TO MONITOR.
--- NOTE | 2019-07-17 23:19 | NUR ---
PT CONTINUES TO PULL AT CORDS ATTACHED AND IS VERY RESTLESS AND AGITATED. ADMINISTERED IV ATIVAN. BP IS 180/106 HR 129. WILL CONTINUE TO MONITOR.
--- NOTE | 2019-07-17 23:48 | NUR ---
BP CAME DOWN SLIGHTLY TO 177/90, HR 128 PT IS STILL RESTLESS IN BED. WILL CONTINUE TO MONITOR.
--- NOTE | 2019-07-18 00:07 | NUR ---
ADMINISTERED IV LOPRESSOR FOR INCREASED BP. WILL CONTINUE TO MONITOR.
--- NOTE | 2019-07-18 01:20 | NUR ---
PT IS STILL RESTLESS IN BED PULLING AT CORDS AND ATTENDS. BP REMAINS ELEVATED AFTER LOPRESSOR, ADMINISTERED ATIVAN FOR CIWA OF 14. PATIENT IS MONITORED FROM NURSES STATION.
--- NOTE | 2019-07-18 02:00 | NUR ---
IN ROOM TO CLEAN UP PT AFTER HAVING A LARGE LOOSE BM.
--- NOTE | 2019-07-18 03:38 | NUR ---
PT HAD MULTIPLE LOOSE BMS WHILE CHANGING HER. SHE IS NOW FINISHED AND CLEANED UP. ATIVAN WAS GIVEN FOR CIWA PROTOCOL. IV IN RT ARM INFILTRATED AND WAS REMOVED. CATH TIP INTACT AND GAUZE AND TAPE ARE NOW IN PLACE. PT MORE TALKATIVE AT THIS TIME BUT CONVERSATION IS NOT MAKING SENSE. SHE POINTED AT THE AIR AND ASKED "WHAT'S THAT". PT SEEMS TO BE A LITTLE MORE COMFORTABLE AT THIS TIME BUT STILL FIGITING AND PICKING AT THINGS.
--- NOTE | 2019-07-18 05:12 | NUR ---
CLEANED PT UP FROM A LARGE LIQUID BM. SHE IS NOW RESTING IN BED COMFORTABLE.
--- NOTE | 2019-07-18 05:44 | NUR ---
ADMINISTERED SCHEDULED PO ATIVAN. PT IS MORE COHERENT AT THIS TIME ASKING "WHERE ARE WE" AND WHEN ASKED IF SHE WAS COMFORTABLE SHE SAID "HIGHER" WHEN THE BED WAS LOWERED AFTER TAKING HER PILL.
--- NOTE | 2019-07-18 06:49 | NUR ---
ADMINISTERED LOPRESSOR FOR INCREASED BP. PT IS RESTING IN BED MOVING LEGS. PT IS VISABLE FROM NURSES STATION.
--- NOTE | 2019-07-18 08:30 | NUR ---
INTO PT ROOM FOR MORNING ASSESSMENT. PT APPEARS AGITATED AND IS NOT ORIENTED TO TIME, PLACE, OR SITUATION. REORIENTED APPROPRIET. PT HAS HYPERACTIVE BOWEL TONES AND ASCITES IS PRESENT. ABDOMEN HAS WAVE LIKE MOVEMENT WITH PALPATATION. LARGE LIQUID STOOL NOTED. BRIEF AND LINEN CHANGED CHANGED. COCCYX AREA REMAINS EXCORIATED AND REDDENED. BARRIER CREAM APPLIED. PT ABLE TO TAKE A FEW BITES OF PUDDING AND SOME SIPS OF WATER. NO FURTHER NEEDS AT THIS TIME. BED IN LOWEST POSTION WITH SIEZURE PADS ON.
--- NOTE | 2019-07-18 09:30 | NUR ---
PT ABLE TO SWALLOW PILLS WITH PUDDING. LACTULOSE HELD DUE TO MULTIPLE LARGE BMs. PRN IV ATIVAN GIVEN DUE TO SYMPTOMS OF WIDRAWAL. PT APPEARS AGITATED IN BED AND IS PULLING AT BP CUFF AND HEART MONITOR LEADS. PT LYING IN BED WITH SIEZURE PADS ON BED RAILS. PT BED VISIBLE FROM NURSE STATION. BED IN LOWEST POSTION. WILL CONTINUE TO MONITOR.
--- NOTE | 2019-07-18 10:00 | NUR ---
TRIED TO TALK WITH PATIENT. EYES WERE OPEN, SHE WAS NOT ABLE TO ANSWER QUESTIONS. SHE DID SAY "COLD". STAFF BROUGHT HER WARM BLANKETS.
--- NOTE | 2019-07-18 10:56 | NUR ---
PATIENT ADMITTED AT HIGH RISK FOR MALNUTRITION DUE TO POOR APPETITE RECENTLY AND UNSURE OF WEIGHT LOSS. SHE IS NOT VERY ALERT TODAY, RECEIVING ATIVAN FOR AGGITATION. ABLE TO TAKE A COUPLE BITES OF PUDDING WITH NURSING. PATIENT'S BMI WAS 19.57 ON ADMIT, WITH WEIGHT OF 125 LBS. UNSURE OF USUAL BODY WEIGHT. NFPE NOT DONE DUE TO PATIENT IN ICU AND GOING THROUGH ALCOHOL WITHDRAWLS. [address] DIET IN PL[address]. PROVIDE ENSURE 2-3 BOTTLES DAILY TO HELP INCREASE CALORIE AND PROTEIN INTAKE IF POOR APPETITE REMAINS. WILL REMAIN AVAILABLE IF NEEDED.
--- NOTE | 2019-07-18 12:07 | NUR ---
PRN ATIVAN GIVEN FOR ETOH WITHDRAWAL SYMPTOMS. PT MOVING RESTLESSLY IN BED AND HEART RATE AND BLOOD PRESSURE INCRESED. PRN METOPROLOL GIVEN FOR BLOOD PRESSURE OF 180/94(116). REASSESSED 20 MINUTES LATER AND BP DOWN TO 163/93(109) AND HEART RATE IN 80s. HEARD EMPTIED AND RECORDED. PT IS BECOMING MORE VERBAL. WHILE GIVING THE MEDS SHE SAID "GO AWAY, LEAVE ME ALONE". PT WAS TOLD THAT SHE WAS GETTING MEDICTION TO HELP HER WITHDRAWAL SYMPTOMS FEEL BETTER AND TO LOWER HER BLOOD PRESSURE. NEW BAG OF LR + K STARTED AND IV TUBING CHANGED. BED IN LOWEST POSTION, WILL CONTINUE TO MONITOR.
--- NOTE | 2019-07-18 13:22 | NUR ---
PATIENT GIVEN BED BATH AND BRIEF CHANGED. LARGE BM NOTED. BARRIER CREAM APPLIED TO COCCYX AND ALONG GROIN BILATERALLY. CATHETER CARE PROVIDED. PATIENT'S HAIR WASHED AND BRUSHED. CHAPSTICK APPLIED BECAUSE LIPS LOOKED DRY. BED IN LOW POSITION WITH SIEZURE PADS ON. NO FURTHER NEEDS AT THIS TIME.
--- NOTE | 2019-07-18 14:26 | NUR ---
administered ativan with student nurse. patient repositioned. no other needs at this time
--- NOTE | 2019-07-18 16:45 | NUR ---
PT STATES "MY HIP HURTS". PT RATES RIGHT HIP PAIN 2/10. PT REPOSITIONED AND PILLOW PLACED UNDER RIGHT HIP. PT STATES THAT HIP FEELS BETTER WITH PILLOW THERE. PT COMPLAINS OF SMALL AMOUNT OF NAUSEA, BUT DOESNT THINK SHE IS GOING TO THROW UP. PT APPEARS MODERATELY RESTLESS AND IS PICKING AT BLOOD PRESSURE CUFF. HEARD EMPTIED AND VITAL SIGNS TAKEN. 100 mg OF PRN LABETALOL GIVEN FOR ELEVTED BLOOD PRESSURE. BED IN LOW POSITION AND CALL LIGHT WITHIN REACH.
--- NOTE | 2019-07-18 17:20 | NUR ---
TALKED VIA PHONE WITH PT'S SISTER AND UPDATED HER TO PT STATUS TODAY. ALSO REQUESTED THAT SHE BE THE POINT OF CONTACT FOR OTHER FAMILY MEMBERS FOR TODAY. IS AGREABLE. ALL QUESTIONS ANSWERED.
--- NOTE | 2019-07-18 18:13 | NUR ---
MED REC COMPLETE
--- NOTE | 2019-07-18 20:59 | NUR ---
SHIFT REPORT RECEIVED FROM JAIME ROCA. ASSESSMENT COMPLETED AT THIS TIME. CURRENTLY PT ONLY ORIENTED TO SELF. SHE APPEARS RESTLESS AND STATES SHE WANTS TO LEAVE. SHE IS SLOW TO RESPOND, BUT WILL ANSWER SOME QUESTIONS AND FOLLOWS SOME DIRECTIONS. CIWA: 14, PRN ATIVAN GIVEN; 30MIN REPEAT CIWA STILL 14, ATIVAN REPEATED ONCE. LUNGS CLEAR, SLIGHTLY DIM IN BASES, RA. HR REGULAR. BOWEL TONES HYPERACTIVE. PT INCONTINENT OF STOOL, ATTENDS CHANGED, PERICARE AND CATH CARE COMPLETED, BARRIER CREAM APPLIED TO COCCYX AND GROIN FOLDS. ETELVINA HOSE AND HEEL PROTECTORS IN PLACE. PT REPOSITIONED ONTO RIGHT SIDE. BED ALARM SET AND SEIZURE PADS IN PLACE FOR SAFETY. PT REMAINS WITHIN LINE OF SITE FROM THIS RN FROM NURSES' STATION.
--- NOTE | 2019-07-18 21:36 | NUR ---
PATIENT APPEARS TO BE RESTING MORE COMFORTABLY AND APPEARS LESS RESTLESS. PT ASKING FOR BEERS, REORIENTED HER TO SURROUNDINGS AND PLAN OF CARE, BUT SHE DOES NOT BELEIVE ME THAT SHE IS IN THE HOSPITAL. SHE IS NO LONGER ATTEMPTING TO EXIT THE BED, THOUGH SHE CONTINUES TO PICK AT HER BLANKETS AND GOWN. VITAL SIGNS STABLE.
--- NOTE | 2019-07-18 22:30 | NUR ---
BOOSTED PT UP IN BED AND REPOSITIONED ONTO LEFT SIDE WITH PILLOW SUPPORT. ATTENDS REMAIN DRY AT THIS TIME. BED ALARM ON FOR SAFETY.
--- NOTE | 2019-07-18 23:20 | NUR ---
CALLED AND SPOKE TO DR. SLAUGHTER REGARDING PT'S LOW URINE OUTPUT. BLOOD PRESSURE STABLE. NO NEW ORDERS RECEIVED AT THIS TIME, WILL CONTINUE TO MONITOR.
--- NOTE | 2019-07-18 23:41 | NUR ---
PT SLEEPING, APPEARS COMFORTABLE, NO APPARENT DISTRESS. RESPIRATIONS EVEN AND UNLABORED. HR:88, RR:18, SPO2:100% ON RA.
--- NOTE | 2019-07-19 00:40 | NUR ---
PT AWAKE, RESTLESS IN BED. CIWA 12, PRN ATIVAN GIVEN. ASSESSMENT COMPLETED, PT ABLE TO TELL ME SHE IS IN "SOME HOSPITAL" THIS TIME, OTHERWISE NO CHANGES FROM PREVIOUS ASSESSMENT. PT REPOSITIONED IN BED. PT REPORTS FEELING HUNGRY, ATE A WHOLE CUP OF PUDDING WITH ASSISTANCE AND DRANK A FEW SIPS OF ENSURE, PT STATES "THANK YOU" WHEN FINISHED. BED ALARM AND SEIZURE PADS REMAIN IN PLACE FOR SAFETY. ATTENDS REMAIN DRY AT THIS TIME.
--- NOTE | 2019-07-19 01:49 | NUR ---
PT APPEARS TO BE RESTING COMFORTABLY, SLEEPING OFF AND ON. VITAL SIGNS STABLE. IVF INFUSING.
--- NOTE | 2019-07-19 04:33 | NUR ---
ASSESSMENT COMPLETED. CIWA 6, PATIENT CALM/COOPERATIVE AT THIS TIME. VITAL SIGNS STABLE. PT REPOSITIONED IN BED. BED ALARM AND SEIZURE PADS REMAIN ON FOR SAFETY.
--- NOTE | 2019-07-19 05:28 | NUR ---
PT INCONTINENT OF SMALL AMOUNT OF LIQUID STOOL. NEW ATTENDS AND PERICARE PROVIDED, BARRIER CREAM APPLIED TO COCCYX AND GROIN FOLDS. PT REPOSITIONED ONTO RIGHT SIDE WITH PILLOW SUPPRT. BED ALARM AND SEIZURE PADS IN PLACE FOR SAFETY.
--- NOTE | 2019-07-19 07:15 | NUR ---
REPORT RECEIVED FROM JAIME TORRES. PT RESTING IN BED WITH EYES CLOSED. RESPIRATIONS EVEN AND UNLABORED. SEIZURE PADS UP ON SIDES OF BED. BED RAILS UP. CURTAIN OPEN FOR EASY VIEWING FROM NURSES STATION.
--- NOTE | 2019-07-19 08:20 | NUR ---
MORNING ASSESSMENT AND MEDICATION DUE. THIS RN TO BEDSIDE. PT RESTING ON LEFT SIDE. ASSESSMENT DONE. PT DENIES PAIN AND NAUSEA. PT UNABLE TO STATE WHERE SHE IS BUT IS ABLE TO ASK FOR FOOD. BREAKFAST ORDERED. LUNG SOUNDS CLEAR TO DEMINISHED. REDNESS AND FRAGILE SKIN NOTED TO COCCYX, ROSELIA CARE DONE. BARRIER CREAM APPLIED TO COCCYX AND ROSELIA AREA. DEPENDS CHANGED. CIWA SCORE OF 9. PT BECOMING INCREASINGLY AGITATED. SEE MAR FOR MEDICATION GIVEN. SEIZURE PADS IN PLACE FOR SAFETY. HEARD DRAINING CLEAR YELLOW URINE, 125 ML REMOVED FROM HEARD. PT RESTING IN BED WITH EYES CLOSED, RESPIRATIONS EVEN AND UNLABORED. CURTAIN OPEN FOR EASY VIEWING FROM NURSES STATION.
--- NOTE | 2019-07-19 09:28 | NUR ---
BREAKFAST ARRIVED. PT EATS APROXIMATELY 25% OF CREAM OF WHEAT WITH THIS RN. PT ABLE TO ASK FOR MORE AND STATE WHEN SHE IS FINISHED. PT BECOMING MORE RELAXED. COMPLETE BED BATH DONE. TELE LEADS CHANGED. LINENES CHANGED. NO SWALLOWING DIFFICULTIES NOTED. PT ABLE TO SWALLOW CREAM OF WHEAT AND WATER WITHOUT COUGH OR CHOAKING. PT RESTING IN BED. BED RAILS UP. CURTAIN OPEN FOR EASY VIEWING FROM NURSES STATION.
--- NOTE | 2019-07-19 10:45 | NUR ---
THIS RN TO BEDSIDE FOR ROUNDS WITH MD. PT RESTING WITH EYES CLOSED. PT RESPONDS TO VOICE AND LIGHT TOUCH. PT SOMULENT AT THIS TIME AND NOT ANSWERING QUESTIONS. LORAZAPAM DOES TO BE DECREASED BY MD. FLUIDS DECREASED TO 60ML/HR PER MD ORDER. HEARD CONTINUES DRAINING CLEAR YELLOW URINE. BED RAILS UP. SEIZURE PADS IN PLACE FOR PT SAFETY. NO ADDITIONAL REQUESTS OR COMPLAINTS AT THIS TIME. ANTICIPATING PT TRANSFER TO MED/SURG FLOOR.
--- NOTE | 2019-07-19 13:30 | NUR ---
LUNCH ARRIVED. 1PA MAX ASSIST UP TO CHAIR. PT ABLE TO SIT AT EDGE OF BED FOR BRIEF PERIODS OF TIME. PT ASSISTED WITH EAT LUNCH INCLUDING MASHED POTATOES, CREAM OF MUSHROOM SOUP AND 1 CHOCOLATE ENSURE. GOOD APITITE NOTED. PTS HAIR COMBED AND PUT INTO BUN/PONEY TAIL. PT RESTING IN CHAIR. CALL LIGHT WITHIN REACH. CURTAIN OPEN FOR EASY VIEWING FROM NURSES STATION.
--- NOTE | 2019-07-19 14:45 | NUR ---
THIS RN TO ROOM. PT AGITATED AND TRYING TO GET OUT OF CHAIR. PT ASKED WHY AND STATES SHE NEEDS TO USE THE RESTROOM. PT FOUND TO BE SOILED. MID LINE LEAKING BLOOD. MID LINE SEQURED WITH PRESURE DRESSING. WILL DO STERILE DRESSING CHANGE AND ASSESS. 2PA TRANSFER BACK TO BED. ROSELIA CARE, DIAPER CARE, CATHETER CARE DONE. LINENS CHANGED. PT RESTING COMFORTABLY IN BED. CALL LIGHT WITHIN REACH. WARM BLANKETS PROVIDED.
--- NOTE | 2019-07-19 15:47 | NUR ---
PT NOTED TO BE AGITATED AND CRAWLING OUT OF BED. CIWA SCORE OF 11. SEE MAR FOR MEDICAITON GIVEN. DEPENDS SOILED. ROSELIA CARE, CATHETER CARE AND DIPER CARE DONE. NEW PULSE OX STICKER APPLIED. WARM BLANKETS PROVIDED. BED RAILS UP.
--- NOTE | 2019-07-19 16:45 | NUR ---
ANTICIPATING TRANSFER OF PT TO MED/SURG FLOOR. REPORT GIVEN TO JAIME MOYER WHO STATES HER QUESTIONS HAVE BEEN ANSWERED.
--- NOTE | 2019-07-19 17:25 | NUR ---
MID LINE ASSESSED. DRESSING REMOVED AND AREA CLEANED WITH CLORAHEXADINE. 0CM EXPOSED. DRESSING CHANAGE PER PROTOCOL. CLAVE CAPS CHANGED. LINE FLUSHED, BLOOD RETURN NOTED. LINE INFUSING IV FLUIDS (SEE MAR). PT DEMONSTRATING CIWA SCORE OF 11. SEE MAR FOR MEDICATION GIVEN. DEPENDS SOILED. ROSELIA CARE, CATHITER CARE, AND DIPER CARE DONE. PT TRANSFERED TO MED/SURG. PTS RN, COMFORT, STATES SHE HAS NO ADDITIONAL REQUESTS OR COMPLAINTS. ALL BELONGINGS WITH PT.
--- NOTE | 2019-07-19 18:13 | NUR ---
CALLED DR SLAUGHTER RE: PT'S AGITATION AND CIWA SCORE. DR SLAUGHTER STATED HE WILL CHANGE THE ATIVAN ORDER. ORDER CHANGED TO 0.5-1MG Q2 HR.
--- NOTE | 2019-07-19 20:24 | NUR ---
CALL TO DR. SLAUGHTER REGARDING ORQUIDEA DALE PER DR. KASANDRA DALE TO LEAVE HEARD D/C AT THIS TIME. PT IN ATTENDS. RONALDO SANDOVAL NOTIFIED.
--- NOTE | 2019-07-19 20:33 | NUR ---
charge nurse rounding note: Up to bsc, incontinent of bowel. f/c patent. 1-2PA,/fww, weak LE. uses call light appropriately, no c/o pain, alert and oriented
--- NOTE | 2019-07-19 20:35 | NUR ---
Pt ivf infusing w/o problems. Pt pulled F/C earlier, continues on CIWA ETOH withdrawal assessments,seizure pads in place, on room air. eyes closed,
--- NOTE | 2019-07-20 00:20 | NUR ---
THIS JUNIOR PARALEGAL AND PRIMARY RN CLEANED/CHANGED ATTENDS. PATIENT HAD A WATERY BOWEL MOVEMENT. BED ALARM ON FOR SAFETY.
--- NOTE | 2019-07-20 00:33 | NUR ---
pt inc of urine and stool, skin very excoriated in [place] area, open - barrier cream applied. watery stool leaking - pt confused and axious.
--- NOTE | 2019-07-20 04:13 | NUR ---
IN TO ROOM, PT IN BED AWAKE. PT APPEARS RESTLESS, MOVING AROUND IN BED. CIWA COMPLETED. PT UNABLE TO ORIENT TO DATE, PLACE OR TIME. NEW IVF STARTED. PT REMAINS AWAKE, RESTLESS. CALL LIGHT, BED ALARM AND SEIZURE PADS IN PLACE.
--- NOTE | 2019-07-20 05:07 | NUR ---
PT WAS RESTLESS MOST OF THE NIGHT. FREQUENT BENDING OF L ARM AND IV ALARMING. PT PULLED OUT HEARD AT START OF SHIFT - OK TO LEAVE OUT. CONT. TO HAVE LIQ. CONSTANT BM WITH SKIN BREAKDOWN. (LACTULOSE) DT/ETOH WITHDRAWL USING CIWA PROTOCOL AND FREQUENT ATIVAN. eND STAGE LIVER DX, ENCEP.
--- NOTE | 2019-07-20 05:28 | NUR ---
PRIMARY RN NOTIFIED RE BP.
--- NOTE | 2019-07-20 05:43 | NUR ---
THIS INDUSTRIAL HIRE SALES ASSISTANT FED THE PATIENT 1 JELLO AND 1 PUDDING. PATIENT ALSO DRINK ICE WATER.
--- NOTE | 2019-07-20 06:06 | NUR ---
rn assisted lab to draw blood from r hand. pt was not cooperative and rn held her hand and re assured pt. denies needs - continues to be confused. iv ativan given for increased anxiety and ciwa score.
--- NOTE | 2019-07-20 07:15 | NUR ---
RECIEVED BEDSIDE REPORT FROM RONALDO Sebastian RN. PT IS RESTING COMFORTABLY AT THIS TIME. APPEARS COMFORTABLE. NOT RESTLESS. IVF RUNNING. PT PULLED HEARD OVERNIGHT.
--- NOTE | 2019-07-20 09:14 | NUR ---
CHANGED PT AND DRAW SHEET WITH SURVEY RODMAN ASSISTANCE. PT TOLERATED WELL. PT TOOK MEDS WHOLE WITH PUDDING AND SIPS OF WATER. PT WAS ABLE TO ASK FOR WATER WHEN SHE WANTED WATER.
--- NOTE | 2019-07-20 09:22 | NUR ---
PATIENT IN BED RESTING WITH EYES CLOSED. CALL FRESH WATER GIVEN. CALL LIGHT IN REACH. NO FURTHER NEEDS AT THIS TIME.
--- NOTE | 2019-07-20 09:42 | NUR ---
PT IS DECLINING TO EAT BREAKFAST, SHAKES HER HEAD NO AND SQUEEZES HER EYES SHUT WHEN THIS RN TALKS TO HER ABOUT EATING. SHE DID EAT A CUP OF PUDDING WITH HER MEDS THIS MORNING.
--- NOTE | 2019-07-20 11:11 | NUR ---
Changed attend and repositioned pt in bed. Pt did not wake up.
--- NOTE | 2019-07-20 14:02 | NUR ---
PT ABLE TO TALK TO SISTER STEPHANIE. PT ATE APROX 50% OF LUNCH MEAL. 100ML PO INTAKE.
--- NOTE | 2019-07-20 14:31 | NUR ---
PT IS MILDLY FIDGITY. MODERATE TREMORS VISIABLE. PT CAN BE WOKEN UP AND WILL RESPOND WITH ONE OR TWO WORD ANSWERS. SHE SPOKE WITH HER SISTER ON THE PHONE. SEVERAL SISTERS HAVE CALLED WANTING INFORMATION, THEY ARE NOT LISTED ON THE CHART, VERY UNHAPPY WITH THE RESPONSE THAT THEY CANNOT GET INFORMATION AT THIS TIME D/T WHO IS LISTED ON ON CHART. CIWA SCORE OF 15, 1MG ATIVAN GIVEN. PT IS CALMER NOW.
--- NOTE | 2019-07-20 16:47 | NUR ---
CIWA SCORE DECREASED TO 14.
--- NOTE | 2019-07-20 17:43 | NUR ---
PATIENT SITTING UP IN BED, NURSE CHERI IS IN ROOM WITH PATIENT, VITAL SIGNS DONE, INTAKE AND OUTPUT DONE WELL
--- NOTE | 2019-07-20 17:56 | NUR ---
PT IS SITTING UP AT EDGE OF BED WITH RN AT BEDSIDE. SHE IS TALKING, HOLDING HER OWN JUICE, REQUESTING BLANKETS AND SHOES. PT NOT SAFE TO BE LEFT ALONE. PT IS ABLE TO HAVE A CONVERSATION, HAS TALKED TO HER SISTER ON THE PHONE. MD AWARE OF PROGRESS.
--- NOTE | 2019-07-20 19:17 | NUR ---
bedside report - pt is restless - this rn had her sit at side of bed while we did report. She looks like she is more awake and starting to clear - still confused but more aware. still has bed alarm, call light and line of sight.
--- NOTE | 2019-07-20 20:56 | NUR ---
this rn had pt sit up at bedside to take po meds, she sat up with max assist very weak - but was able to drink water and eat apple sauce on her own while sitting with nurse for assessment. still confused but looks better. she took po pills on own in apple sauce. then she stood up with this nurse max assist and amb around bed to bsc to have liq bm and be changed inct. of stool and urine. meaghan care done - very excoriated - barrier cream placed then pt was able to max assist pivot transfer to clean bed. very shakey and unsteady - but attempting to follow directions. weak all over generalized.
--- NOTE | 2019-07-20 21:02 | NUR ---
PRIMARY RN IS AWARE OF RE BP. PRIMARY RN WAS IN THE ROOM.
--- NOTE | 2019-07-21 01:30 | NUR ---
PT AMB WITH ME AROUND BED TO BSC MAX ASSIST, INC OF URINE/STOOL. CONFUSION BETTER, ALARM ON. LESS ATIVAN. SAT UP AT BEDSIDE WITH RN AND PT FED HERSELF/DRANK WATER WELL. VERY WEAK BUT TRYS TO FOLLOW COMMANDS.
--- NOTE | 2019-07-21 07:38 | NUR ---
RECIEVED BEDSIDE REPORT FROM RONALDO Badillo PT IS AWAKE AND ALERT IN BED. REQUIRES 1:1 AND BED ALARM FOR SAFETY WHILE AWAKE.
--- NOTE | 2019-07-21 09:05 | NUR ---
PT ATE BREAKFAST INDEPENDENTLY THIS AM. PT IS ABLE TO CARRY A CONVERSATION. ANSWERING APROPRIATLY. WORKED WITH PHYSICAL THERAPY. BED ALARM ON FOR SAFETY.
--- NOTE | 2019-07-21 10:00 | NUR ---
SPOKE WITH PATIENT IN ROOM. PATIENT UP IN CHAIR WITH OT IN TO WORK WITH HER. DISCUSSED THAT SHE MAY QUALIFY FOR A SNF STAY. ASKED IF SHE WAS INTERESTED IN GOING TO A FACILITY FOR AWHILE TO GET STRONGER. ASKED IF SHE ISN'T WANTING TO DO THAT, WHERE DOES SHE PLAN ON GOING. SHE ASKED WHAT PLACE IS IN [place], I TOLD HER ONLY SNF HERE IS [facility]. ALSO THAT THERE ARE PLACES OUT OF TOWN, SHE ASKED ABOUT [place], I TOLD HER [facility] IS THERE. SHE IS SLOW IN SPEAKING AND RESPONDING WITH SHORT SENTENCES. SHE SAYS SHE IS "THINK ABOUT IT". DISCUSSED I WILL COME BACK LATER TODAY AND TALK WITH HER AFTER SHE THINKS ABOUT IT. WILL CONTINUE TO FOLLOW.
--- NOTE | 2019-07-21 10:15 | NUR ---
PT IS SITTING UP IN CHAIR WITH CHAIR ALARM ON. PT APPEARS COMFORTABLE. STATES SHE IS NOT IN PAIN. ATE PUDDING INDEPENDENTLY. GIVEN WARM BLANKET. WORKED WITH OT.
--- NOTE | 2019-07-21 10:39 | NUR ---
PT IS BACK IN BED. PT DID NOT WAIT TO GET UP. SHE WALKED FROM CHAIR TO BED WITH ASSISTANCE. PT IS NOW IN BED AND "WANTS TO NAP".
--- NOTE | 2019-07-21 10:51 | NUR ---
PT SITTING IN CHAIR-BLANKET OVER HER HEAD. PT RESPONDED WHEN I CALLED HER BY NAME. LIPS QUIVERING, VERY LITTLE RESPONSE. COULD NOT GET ANY ANSWERS FROM HER EXCEPT THAT SHE WANTED TO SLEEP. HER SISTER WANTED A BUILDING CONSTRUCTION TEACHER TO COME, WILL TRY AND GET PT TO SAY IF SHE WOULD LIKE A VISIT. GAVE A BLESSING
--- NOTE | 2019-07-21 11:08 | NUR ---
PATIENT MORE ALERT, BUT STILL SOMEWHAT SOMNOLENT. SHE IS EATING BETTER AFTER GOING THROUGH ETOH WITHDRAWLS. RECEIVED SOME ASSISTANCE WITH EATING OVER THE WEEKEND. DRANK SOME ENSURE WELL. CONTINUE 2 GRAM SODIUM DIET SINCE ASCITES IS PRESENT, WITH ENSURE. WILL CONTINUE TO MONITOR.
--- NOTE | 2019-07-21 14:45 | NUR ---
STOPPED INTO ROOM TO SEE PATIENT. SHE IS IN BED. SHE OPENS EYES TO NAME. ASKED PATIENT IF SHE HAD GIVEN ANYMORE THOUGHT TO WHERE SHE WANTS TO GO AT DISCHARGE. PATIENT SHOOK HER HEAD NO. ASKED IF SHE KNEW WHERE SHE WAS, PATIENT MUMBLED, UNABLE TO UNDERSTAND. SHE SHOOK HER HEAD NO WHEN ASKED AGAIN. PATIENT CLOSED HER EYES.
--- NOTE | 2019-07-21 19:30 | NUR ---
BEDSIDE REPORT RECEIVED FROM JAIME MOYER. pt RESTING IN BED, AWAKE. DENIES ANY NEEDS. CALL LIGHT IN REACH. BED ALARM ON.
--- NOTE | 2019-07-21 19:45 | NUR ---
pt's BED ALARM WAS ALARMING. pt WAS ATTEMPTING TO CRAWL OUT OF BED SAYING "I HAVE TO GO TO THE BATHROOM". 2PA TO BSC pt URINATED AND WAS HELPED BACK TO BED. RESTING SAFELY IN BED WITH CALL LIGHT IN REACH AND BED ALARM ON.
--- NOTE | 2019-07-21 21:22 | NUR ---
pt ASSESSMENT COMPLETE. pt ORINETED, TO SELF, , HOSPITAL. REORIENTATION TO DATE PROVIDED. ABD FIRM, DISTENDED. BOWEL TONES ACTIVE. 1PA WITH FWW TO BSC, GAIT UNSTEADY/WEAK, REQUIRING COACHING W WALKER USE. VOID AND BACK TO BED. ETELVINA HOSE, HEEL PROTECTORS ON. ICE WATER PROVIDED. CALL LIGHT IN REACH. BED ALARM ON.
--- NOTE | 2019-07-21 23:42 | NUR ---
pt RESTING IN BED ON LEFT SIDE, BREATHING UNLABORED. LIGHTS OFF IN ROOM. BED ALARM ON.
--- NOTE | 2019-07-22 00:39 | NUR ---
pt USED CALL LIGHT TO ASK FOR ASSISTANCE TO THE BSC. 2PA WITH FWW TO BSC AND THEN BACK TO BED. pt RESTING SAFELY IN BED WITH CALL LIGHT IN REACH AND BED ALARM ON DENIES ANY OTHER NEEDS AT THIS TIME
--- NOTE | 2019-07-22 00:48 | NUR ---
PATIENT USED THE CALL LIGHT. THIS AND TAXI INSTRUCTOR BUS TROLLEY AND GEOVANNY DE PAZ HELPED PATIENT USE THE BEDSIDE COMMODE. PATIENT IS BACK IN BED. CALL LIGHT IN REACH. BED ALARM ON FOR SAFETY.
--- NOTE | 2019-07-22 03:42 | NUR ---
CALL LIGHT ANSWERED, 2PA TO BSC W FWW FOR VOID AND FORMED BM. pt BACK IN BED. GENERALIZED WEAKNESS. DENIES PAIN. BOWEL TONES ACTIVE. ABD DISTENDED, FIRM. ENSURE PROVIDED REQUESTED. CALL LIGHT IN REACH. BED ALARM ON.
--- NOTE | 2019-07-22 05:20 | NUR ---
pt RESTED WELL THIS SHIFT. 1-2PA TO BS WITH FWW FOR VOIDS, FORMED BM THIS SHIFT. ABD FIRM, DISTENDED, BOWEL TONES ACTIVE. pt DENIES PAIN THROUGHOUT SHIFT. REORIENTATION PROVIDED TO DATE, PLAN OF CARE. MIDLINE HEPARIN LOCKED. BED ALARM IN PLACE, USING CALL LIGHT APPROPRIATELY.
--- NOTE | 2019-07-22 07:27 | NUR ---
2 PERSON ASSIST TO COMODE, 2 PERSON ASSIST TO RECLINER.
--- NOTE | 2019-07-22 07:47 | NUR ---
Called Dr. Dietz regarding increased temp of 101.2. New orders obtained and placed at this time for a CBC, CMP, Straight cath, two view chest x-ray. Cool compress provided to pt.
--- NOTE | 2019-07-22 08:00 | NUR ---
PATIENT SITTING UP IN CHAIR. LINENS CHANGED. CALL LIGHT WITHIN REACH. NO OTHER NEEDS AT THIS TIME
--- NOTE | 2019-07-22 08:21 | NUR ---
Lab in with pt at this time.
--- NOTE | 2019-07-22 09:30 | NUR ---
In to speak with Shaila. Attempted earlier, but she was having a proceedure. She is awake and states I am hungry when I enter the room. Aid in room and states she needs to have one more procedure before she can eat. Discussed discharge with Shaila and she would like to go to [facility] in [place] on DC. Informed I will send her chart. Per Aid, pt remains febrile this am.
--- NOTE | 2019-07-22 09:37 | NUR ---
STRAIGHT CATH'D PT FOR APPROX 200ML. PT TOLERATED WELL.
--- NOTE | 2019-07-22 09:52 | NUR ---
URINE SENT PER DOC ORDER. OBTAINED STRAIGHT CATH USING STERILE TECHNIQUE. PT TOLERATED WELL.
--- NOTE | 2019-07-22 10:13 | NUR ---
Ultrasound in with pt for study.
--- NOTE | 2019-07-22 10:31 | NUR ---
PATIENT RESTING IN BED. VITAL SIGNS AND I&O DONE. HIGH BLOOD PRESSURE AND TEMPERATURE. RN NOTIFIED. CALL LIGHT WITHIN REACH. NO OTHER NEEDS AT THIS TIME
--- NOTE | 2019-07-22 10:34 | NUR ---
Pt left dept to have 2 view crx done.
--- NOTE | 2019-07-22 11:20 | NUR ---
Spoke with Za from [facility]. Updated, Shaila is now awake and talking. Informed we discussed A&D treatment. She would like counseling from the [place] and was interested in rehab. I will call [facility] and ask if they know of anyone currently taking pts into rehab. I have not had any luck placing pts into rehab or detox for the last few weeks due to Covid.
--- NOTE | 2019-07-22 12:18 | NUR ---
PT SITTING IN CHAIR, APPEARS SHE HAS JUST FINISHED LUNCH. PT QUIETLY TOLD ME SHE HAD SOME KIND OF SOUP AND A CHICKEN SANDWICH. PT SAID SHE HAD LITTLE SLEEP WHEN I ASKED HER. PT CONTINUALLY LOOKING AROUND ROOM DURING VISIT. MOST OFTEN PT DOESNOT RESPOND TO QUESTIONS-HER HEAD JUST SHAKES AND LOOKS AROUND RM. GAVE BLESSING, ASKED PT IF SHE WOULD LIKE A VISIT FROM A AUTHORIZATION REP? NO RESPONSE.
--- NOTE | 2019-07-22 13:04 | NUR ---
H&P, progress notes, PT/OT notes and eval, cxr, abd us, face sheet faxed to [facility].
--- NOTE | 2019-07-22 13:26 | NUR ---
PATIENT SLEEPY. VITAL SIGNS AND I&O DONE. CALL LIGHT WITHIN REACH. NO OTHER NEEDS AT THIS TIME
--- NOTE | 2019-07-22 13:34 | NUR ---
PT APPEARS TO BE RESTING COMFORTABLY IN BED. RESPIRATIONS NOTED AT THIS TIME. CALL LIGHT WITHIN REACH
--- NOTE | 2019-07-22 17:20 | NUR ---
PT SELF TRANSFERED FROM CHAIR TO BED BY HERSELF, DIEUDONNE SANDOVAL NOTICED THAT PT WA IN MID TRANSFER AND ALLERTED THIS RN TO THE PT MOVING. THIS RN ASSISSTED PT BACK TO BED AND RE-EDUCATED PT TO USE CALL LIGHT WHEN SHE NEEDED ASSISSTANCE.
--- NOTE | 2019-07-22 17:36 | NUR ---
PATIENT RESTING IN BED. VITAL SIGNS AND I&O DONE. HIGH BLOOD PRESSURE. RN NOTIFIED. CALL LIGHT WITHIN REACH. NO OTHER NEEDS AT THIS TIME
--- NOTE | 2019-07-22 19:29 | NUR ---
Notified Dr. Dietz regarding bp of 182/88. Dr. Dietz stated he would like the staff to notify him if pt spikes another fever.
--- NOTE | 2019-07-22 19:49 | NUR ---
RECEIVED REPORT FROM MORNING SHIFT. PT IN BED, ALERT, ABLE TO LET HER NEEDS KNOWN. SLOW TO RESPOND. ASKED FOR HER PURSE. JAIME SAMPSON ASKED ABOUT ANY HOME MEDICATIONS IN PT NURSE. PT RESPONDED SHE HAS HOME MEDS IN HER PURSE. ONE BOTTLE IS LOCKED SAFE WITH FARMACY. IV FLUIDS DONE. CLEAREAD THE PUMP. PT HAS NO NEEDS AT THE MOMENT, WILL BE BACK TO ASSESS.
--- NOTE | 2019-07-22 21:30 | NUR ---
PT ALERT. FLUSHED PICC WITH 10 ML OF NS AND HEPARIN, FLUSHED WITHOUT DIFFICULTIES. PT STATED SHE DID NOT FEEL ANY BURNING OR DOSCOMFORT. THERE IS SOME BLOOD NOTED UNDER THE DRESSING. WILL BE BACK TO CHANGE. DONE WITH ASSESSMENT, PT COOPERATIVE.
--- NOTE | 2019-07-22 22:35 | NUR ---
PT IN BED, WITH EYS CLOSED, APPEARS ASLEEP. DIM ,IGHT IN THE ROOM. BED ALARM IS ON FOR SAFETY.
--- NOTE | 2019-07-23 00:56 | NUR ---
PT FINISHED HER SNACKS. INFORMED PT SHE WILL BE NPO AT 0200. PT DENIED PAIN. IN BED ON HER SIDE, APPERAS COMFORTABLE. NO NEEDS AT THE MOMENT. BED ALARM ON.
--- NOTE | 2019-07-23 02:35 | NUR ---
CALL LIGHT ANSWERED. SBA TO RESTROOM WITH FWW. SMALL SMEAR BM IN TOILET. LARGE INCONTINENCE OF URINE. ATTENDS CHANGED. BARRIER CREAM APPLIED. pt BACK IN BED. RN ALINA IN ROOM FOR ASSESSMENT, MIDLINE DRESSING CHANGE DRESSING NOTED TO HAVE DRIED DRAINAGE. FLUSHED WNL, SL. BED ALARM ON. pt NPO.
--- NOTE | 2019-07-23 02:38 | NUR ---
PT FINISHED ENSURE BEFORE BECAME NPO. DURIN ASSESSMENT NOTED THAT THERE IS MORE BLOOD UNDER PICC DRESSING. CHANGED THE DRESSING WITH HELP OF JAIME SAMPSON AND CHARGE NURSE. JAIME SAMPSON FLUSHED PICC LINE WITH 10 ML ON NS. PT DENIED PAIN OR DISCOMFORT. DRESSING CLEAN, DRY INTACT. DONE WITH ASSESSMENT. PT IN BED, RESTING COMFORTABLY. BED ALARM ON FOR SAFETY.
--- NOTE | 2019-07-23 05:08 | NUR ---
PT ALERT TO HERSELF, ABLE TO EXPRESS HER NEEDS. COOPERATIVE WITH ALL CARES. BED ALARM IN PLACE FOR SAFETY. PT ASKED FOR SNACK BEFORE MIDNIGHT; ATE YOUGURT AND SHIPS. FINISHED THE WHOLE ENSURE. NPO SINCE 0200. DRESSING ON PICC LINE WAS CHANGED TONIGHT. PT TOLERATED WELL. PT INCONTINENT, WENT TO THE BATHROOM ONCE, had a smear of bm. Temperature in the morning up to 99.9 F. Incoraged use of I.S. temp without changes.
--- NOTE | 2019-07-23 07:45 | NUR ---
PATIENT RESTING IN BED. STUDENT RN IN ROOM. PATIENT TRANSFERRED TO CHAIR. PATIENT USES WALKER. TWO PERSON ASSISTING. LINENS CHANGED. WARM BLANKET PROVIDED. CALL LIGHT WITHIN REACH. NO OTHER NEEDS AT THIS TIME
--- NOTE | 2019-07-23 09:11 | NUR ---
Pt sitting up in chair at this time, eyes closed, resp even and non labored. Pt has no notable distress. IV abx infusing at this time. Personal supplies and call light within reach. Po meds non admin at this time for NPO status.
--- NOTE | 2019-07-23 09:43 | NUR ---
PATIENT SITTING UP IN CHAIR. STUDENT RN IN ROOM. VITAL SIGNS DONE BY RN. I&O DONE. CALL LIGHT WITHIN REACH. NO OTHER NEEDS AT THIS TIME
--- NOTE | 2019-07-23 11:00 | NUR ---
In to speak with pt. Dr. Huitron setting up for paracentis. Spoke with Shaila and confirmed she would still like to go to [facility] on her dc. Will contact [facility] today to check if they will accept her.
--- NOTE | 2019-07-23 11:07 | NUR ---
In with Dr. Huitron for bedside Paracentesis assistance. Consent obtained. Pt tolerated procedure well. See Dr. Huitron's notes for further details regarding this procedure.
--- NOTE | 2019-07-23 11:15 | NUR ---
IN PTS ROOM AFTER PT HAD PERICENTESIS DONE. PT STATES THAT SHE HAS NO SHORTNESS OF BREATH OR PAIN AT THIS TIME. PT STATES THAT SHE HAS SOME NUMBNESS IN HER ABDOMEN FROM THE PUNCTURE SITE BUT NO PAIN. PT STATES THAT SHE IS HUNGRY, LUNCH ORDERED FOR PT AT THIS TIME.
--- NOTE | 2019-07-23 12:03 | NUR ---
PT RESTING IN BED AT THIS TIME. CALL LIGHT WITHIN REACH. PT ATE ENTIRE LUNCH.
--- NOTE | 2019-07-23 12:39 | NUR ---
PT USED CALL LIGHT TO ALERT STAFF THAT SHE NEEDED TO USE THE RESTROOM. THIS RN ASSISSTED PT TO RESTROOM. PT WAS SITTING ON EDGE OF BED WAITING FOR STAFF BEFORE SHE STOOD UP. PT HAD LARGE LOOSE BOWEL MOVEMENT IN COMMODE LOCATED IN RESTROOM.
--- NOTE | 2019-07-23 14:06 | NUR ---
PT IN EXTENDED SESSION WITH PDaniaT. NOT IN RM. WILL FOLLOW UP
--- NOTE | 2019-07-23 14:22 | NUR ---
PATIENT RESTING IN BED. VITAL SIGNS DONE BY RN. I&O DONE. CALL LIGHT WITHIN REACH. NO OTHER NEEDS AT THIS TIME
--- NOTE | 2019-07-23 14:58 | NUR ---
PT BACK TO BED AFTER WORKING WITH PHYSCIAL THERAPY. PT IN BED AT THE TIME OF ASSESSMENT. PT ABLE TO SIT UP FOR THIS RN TO LISTEN TO HER LUNGS. PT STATED THAT SHE WANTED TO GO TO THE STORE, DISCUSSED WITH PT THAT SHE IS IN THE HOSPITAL AND THAT ISN'T AN OPTION AT THIS TIME, RE-ORINTED PT TO EVENT AND PLACE. PT HAS CALL LIGHT WITHIN REACH AT THIS TIME
--- NOTE | 2019-07-23 16:07 | NUR ---
Per Ultrasound dept pt does not need to be NPO for tmrw's Ultrasound guided paracentesis. Procedure to be scheduled for tmrw @2pm.
--- NOTE | 2019-07-23 16:21 | NUR ---
with assistance from umesh ESPINO, pt had a shower
--- NOTE | 2019-07-23 16:26 | OR ---
[facility] [address], [place] [address] Signed DATE OF OPERATION: 07/23/2019 SURGEON: Orlin Huitron MD PREOPERATIVE DIAGNOSES: 1. Daily alcohol abuse. 2. Cirrhosis of the liver with ascites. 3. Hyponatremia. 4. Hypoalbuminemia. POSTOPERATIVE DIAGNOSES: 1. Daily alcohol abuse. 2. Cirrhosis of the liver with ascites. 3. Hyponatremia. 4. Hypoalbuminemia. PROCEDURE PERFORMED: Left-sided abdominal paracentesis (850 mL jamey colored fluid). ESTIMATED BLOOD LOSS: None. 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 She has significant portal hypertension. She has been in the hospital multiple times. She was anemic and received 2 units of packed red blood cells on this occasion. Her sodium and albumin were low. She has been unresponsive to diuretic therapy. Consequently, the Medical Service asked for a paracentesis. She had a diagnostic paracentesis just a few days ago and that fluid is coming back fine. I met with Shaila here in the hospital and I reviewed the above findings with her. We reviewed paracentesis in detail. She understands there is risk including, but not limited to bleeding, infection, scarring, change in contour of the skin, damage to bowel as well as leak of ascitic fluid through the access site. She also understands that fluid can reaccumulate as quick as 24 to 36 hours. She had expressed understanding and wished to proceed. PROCEDURE NOTE: Shaila was placed in the supine position on her hospital bed. The left abdominal wall was prepped and draped in the usual sterile fashion. Local anesthetic was injected into the abdominal sidewall. After this, the paracentesis needle and catheter were slowly and Electronically Signed By: ORLIN HUITRON MD 07/23/19 1626 PATIENT NAME: SHAILA BERRY OPERATIVE REPORT DATE OF : 72 REPORT #: [id number] PHYSICIAN: ORLIN HUITRON MD PCP: JAMILA NEWMAN REPORT IS CONFIDENTIAL AND NOT TO BE RELEASED WITHOUT AUTHORIZATION [facility] [address], [place] [address] Signed carefully advanced until the fluid was accessed. The needle was withdrawn and the catheter was advanced. We were able to place the tubing on to our Vacutainer bottles and we withdrew 875 mL of clear jamey colored fluid. The catheter had been withdrawn at that point. A Band-Aid was placed. Shaila tolerated the procedure quite well. Orlin Huitron MD ALB/MODL /[id number] cc: Jamila Huitron MD Copies: JAMILA NEWMAN ANDREW L MD ~ Electronically Signed By: ORLIN HUITRON MD 07/23/19 1626 PATIENT NAME: SHAILA BERRY OPERATIVE REPORT DATE OF : 72 REPORT #: [id number] PHYSICIAN: ORLIN HUITRON MD PCP: JAMILA NEWMAN REPORT IS CONFIDENTIAL AND NOT TO BE RELEASED WITHOUT AUTHORIZATION
--- NOTE | 2019-07-23 16:37 | CONS ---
[facility] [address], [place] [address] Signed DATE OF CONSULTATION: 07/23/2019 CHIEF COMPLAINT: Ascites. 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 She is anemic and had required a couple units of packed red blood cells. She also has hyponatremia. She has been on the Medical Service now for several days. A diagnostic tap had been performed previously by the Internal Medicine Service and that fluid came back unremarkable. However, they did ask that if I could perform a therapeutic paracentesis today, withdrawal of additional fluid. Nevertheless, Shaila is not particularly short of breath and her abdomen is not particularly tight. However, she has been hypotensive with hyponatremia and hypoalbuminemia and it was felt that might help with some of her diuretic therapy if she would have a paracentesis per the Internal Medicine Service. PAST MEDICAL HISTORY: Cirrhosis, portal hypertension, cholelithiasis, seizures, alcohol withdrawal, hypertension, anemia, ascites since 2017, alcohol abuse, peripheral edema, sarcopenia. PAST SURGICAL HISTORY: Back surgery with metal remaining, tracheostomy greater than 20 years ago. SOCIAL HISTORY: Quit smoking many years ago. She continues to drink on a daily basis. She has a friend at [phone]. She prefers [facility]. Dr. Jamila Newman is her primary care provider. She is a full code. FAMILY HISTORY: Not obtained today. REVIEW OF SYSTEMS: I spoke with Shaila. She recalls that I took care of her in the past. She does answer appropriately and for the most part, but she is very slow in that regard. She is certainly worse when I have seen her previously. ALLERGIES: Cipro, aspirin, Tylenol, ibuprofen and Bactrim. MEDICATIONS: Spironolactone and Lasix with noncompliance. Electronically Signed By: ORLIN SOLIS MD 07/23/19 9167 PATIENT NAME: SHAILA BERRY CONSULTATION DATE OF : 72 REPORT #: [id number] PHYSICIAN: ORLIN SOLIS MD PCP: JAMILA NEWMAN REPORT IS CONFIDENTIAL AND NOT TO BE RELEASED WITHOUT AUTHORIZATION [facility] [address], [place] [address] Signed PHYSICAL EXAMINATION: VITAL SIGNS: Her blood pressure is 137/77, her heart rate 64, respiratory rate 16, temperature is 99.5. She is 98% on room air. She is 5 feet 7 inches at 55 kg. GENERAL: Shaila is a 49-year-old female, who appears slight lower in her stated age. She is very thin with sarcopenia. She has the typical thin arms and legs with a moderately protuberant abdomen. LUNGS: Generally clear to auscultation bilaterally. HEART: Regular rate and rhythm without murmurs. ABDOMEN: Moderately protuberant, moderately firm and dull to percussion throughout. There are no peritoneal signs or symptoms. LABORATORY DATA: Her white blood cell count is 5, hemoglobin 7.5, it was 5.1, mean cell volume is 92, platelets were 112 it went up to 142. BUN 24, creatinine 1.0, sodium 127, glucose 105, total bilirubin 0.5, AST 31, ALT 13, alkaline phosphatase 120, albumin is 1.8. Urinalysis apparently showed some blood and the urine culture is pending. She has blood cultures pending. She has ascitic fluid that so far negative on Gram stain and urine culture is pending. RADIOGRAPHIC STUDIES: Chest x-ray shows interstitial markings and the ultrasound of the abdomen shows the cirrhosis with the gallbladder nearly full of stones. None measuring greater than 9 mm. She has obvious varices around the spleen and significant ascites and there is a lesion of some sort around 3 cm in the right lobe of the liver was there before. ASSESSMENT AND PLAN: Shaila is a 49-year-old female with alcohol-related cirrhosis and ascites. I have been asked as a general surgeon on-call to perform a paracentesis here at the bedside. I spoke with Shaila about this in detail, she is familiar with the procedure. There is risk including, but not limited to bleeding, infection, scarring, change in contour of the skin, and leakage of ascitic fluid through the paracentesis site. She had expressed understanding and wished to proceed. Orlin Solis MD ALB/MODL /[id number] Electronically Signed By: ORLIN SOLIS MD 07/23/19 1637 PATIENT NAME: SHAILA BERRY CONSULTATION DATE OF : 72 REPORT #: [id number] PHYSICIAN: ORLIN SOLIS MD PCP: JAMILA NEWMAN REPORT IS CONFIDENTIAL AND NOT TO BE RELEASED WITHOUT AUTHORIZATION [address] [address] Signed cc: Jamila Solis MD Copies: JAMILA NEWMAN ANDREW L MD ~ Electronically Signed By: ORLIN SOLIS MD 07/23/19 1637 PATIENT NAME: SHAILA BERRY CONSULTATION DATE OF : 72 REPORT #: [id number] PHYSICIAN: ORLIN SOLIS MD PCP: JAMILA NEWMAN REPORT IS CONFIDENTIAL AND NOT TO BE RELEASED WITHOUT AUTHORIZATION
--- NOTE | 2019-07-23 16:44 | NUR ---
PATIENT SITTING IN THE SHOWER CHAIR. PATIENT TAKES A SHOWER. ONE PERSON ASSISTING. PATIENT BACKS TO CHAIR. PATIENT USES WALKER. ONE PERSON ASSISTING. PATIENT USING A CLEAN GOWN, ADULT PULL UP AND SOCKS. WARM BLANKET PROVEDIDED. CALL LIGHT WITHIN REACH. NO OTHER NEEDS AT THIS TIME
--- NOTE | 2019-07-23 17:07 | NUR ---
PATIENT SITTING UP IN CHAIR. PATIENT'S DINER ORDERED. CALL LIGHT WITHIN REACH. NO OTHER NEEDS AT THIS TIME
--- NOTE | 2019-07-23 17:16 | NUR ---
PATIENT SITTING UP IN CHAIR. VITAL SIGNS AND I&O DONE. HIGH BLOOD PRESSURE. RN NOTIFIED. CALL LIGHT WITHIN REACH. NO OTHER NEEDS AT THIS TIME
--- NOTE | 2019-07-23 18:27 | NUR ---
PT A&0 X4 THIS AM. PT CALLS APPROPRIATELY (CALLED TO USE THE BATHROOM, SCOOTED TO EDGE OF BED, AND WAITED FOR STAFF ASSISSTANCE TO BATHROOM). PT HAD A PARACENTESIS PERFORMED BY THIS AM, BANDAID DRESSING IN LLQ, PULLED OFF 875 MLS. PT DENIED PAIN TODAY. THIS AFTERNOON PT A&O X2- HELPED PT RE-ORIENT TO EVENT AND PLACE. PT HAD 1 LG BM THIS AFTERNOOM AND 1 SMEAR (INCONTINENT). PT TOOK A SHOWER THIS AFTERNOON. PT HAD GOOD APPETITE TODAY. PT 1P SBA WITH FWW. PT GOT LACTOLOSE TODAY.
--- NOTE | 2019-07-23 19:35 | NUR ---
RECEIVED REPORT FROM MORNING SHIFT. PT IN BED, EASY WAKES UP TO VOICE. PT DID NOT REPORT PAIN, APPEARS COMFORTABLE. CALL LIGHT IN REACH, BED IN LOW POSITION. WILL BE BACK TO ASSESS.
--- NOTE | 2019-07-23 20:58 | NUR ---
BED ALARM SOUNDING. pt UP INDEPENDENTLY, LONG-TERM TO RESTROOM, UNSTEADY ON FEET. RN IN ROOM, WALKER PROVIDED. pt CONFUSED, STATES "SOMEONE IS KNOCKING ON DOOR". ASSISTED BACK TO BED, REORIENTED. pt AWAKE, ALERT, STATES "NOW I NEED TO USE RESTROOM". 1PA W FWW TO RESTROOM FOR VOID, SMALL BM. pt BACK IN BED, ALARM ON. SNACKS PROVIDED REQUESTED. CALL LIGHT IN REACH.
--- NOTE | 2019-07-23 21:28 | NUR ---
pt is sitting on the edge of the bed, eating ships and yougurt. alert. able to express her needs. forgetdul, impulsive. put bed alarm on. done with assesment.
--- NOTE | 2019-07-24 00:07 | NUR ---
CHECKED ON PT. OLNDON APPEARS COMFORTABLE, BREATHING EVEN NO DISTRESS NOTED. DIM LIGHT IN THE ROOM, CALL LIGHT IN REACH, BED ALARM IS ON.
--- NOTE | 2019-07-24 04:09 | NUR ---
PT WITH EYES CLOSED, APPEARS COMFORTABLE. BREATHING EVEN, NO DISTRESS NOTED. BED IN LOW POSITION, BED ALARM IS ON.
--- NOTE | 2019-07-24 05:00 | NUR ---
PHONE CALL FROM pt'S BROTHER. pt AWAKE IN ROOM, PHONE CALL TRANSFERRED, ASSISTED WITH CALL BY KENZIE HALL. pt NOTED TO HAVE PULLED MIDLINE CATHETER. SBA WITH FWW TO RESTROOM FOR VOID, INCONTINENCE NOTED. pt BACK IN BED. TWO ATTEMPTS AT IV START BY TRIMMER BUFFING WHEEL JAIME MAN. JAIME MAIN NOW IN ROOM FOR IV START. BED ALARM IN PLACE.
--- NOTE | 2019-07-24 06:25 | NUR ---
PT SLEPT THROUGH THE MOST OF THE NIGHT. DENIED PAIN. INCREASED APPETITE. AT THE BEGINNING OF THE SHIFT PT STATED SHE WANTS BEER. WAS REDIRECTED AND ATE SNACKS. VSS. PT 1PSBA WITH FWW. AT THE END OF THE SHIFT PT PULLED OUT HER MIDLINE. RNs ATTEMPTING TO PLACE IV NOW.
--- NOTE | 2019-07-24 07:45 | NUR ---
INFORMED MD ABOUT PULLED MIDLINE. RECEIVED NEW ORDERS, SEE MAR.
--- NOTE | 2019-07-24 08:09 | NUR ---
GOT PATIENT UP SHE WENT TO THE BATHROOM SHE DIDN'T VOID. NOW PATIENT IS UP IN HER CHAIR EATING HER BREAKFAST. BED LINENS CHANGED.
--- NOTE | 2019-07-24 08:19 | NUR ---
PATIENT SITTING IN CHAIR EATING BREAKFAST. NO IV ACCESS. CALL LIGHT IN REACH.
--- NOTE | 2019-07-24 09:22 | NUR ---
ARLEY SANDOVAL IN TO PLACE MIDLINE.
--- NOTE | 2019-07-24 09:30 | NUR ---
COMPLETED ASSESSMENT. PATIENT BREATHING EASY AND UNLABORED AND REGULAR. ABDOMEN DISTENDED, SOFT, NONTENDER. BOWEL TONES PRESENT. PATIENT STATED FEELS PRESSURE IN ABDOMEN. NO OTHER COMPLAINTS AT THIS TIME. PT SITTING IN BED, CALL LIGHT IN REACH.
--- NOTE | 2019-07-24 10:23 | NUR ---
PHYSICAL THERAPY OUT TO HALLS WITH PT AND FWW.
--- NOTE | 2019-07-24 10:25 | NUR ---
PHYSICAL THERAPY IN TO WORK WITH PT. PATIENT WALKING HALLS WITH ASSISTANCE OF WALKER.
--- NOTE | 2019-07-24 11:20 | NUR ---
Spoke with Shaila. She cont. to want to go to [place] with low grade fever. Received a call from Sebastian at [facility] [place], who works for A&D and has worked with Shaila for A&D treatment. He attempted to speak with her today and she had difficulty answering questions. Informed she is processing information very slowly and answers with one or two words only. Notified I don't have any phone numbers for family. She states Dorothea and Susanne are her sisters, but she lost her phone and can't remember their numbers. He will check for phone numbers for emergency contact. Updated she would like to go to a SNF if possible.
--- NOTE | 2019-07-24 11:54 | NUR ---
PT TO IMAGING, WILL FOLLOW
--- NOTE | 2019-07-24 13:34 | NUR ---
ROUNDED ON PT. PATIENT SITTING UP IN BED EATING LUNCH. CALL LIGHT IN REACH, NO OTHER NEEDS AT THIS TIME.
--- NOTE | 2019-07-24 14:12 | NUR ---
Received a call from Sebastian at [facility]. He has a phone number for next of Kin, Susanne [phone]. She lives in [place], but is willing to be the point person and pass information on to the rest of the family. Number added to contacts as Shaila had requested this earlier.
--- NOTE | 2019-07-24 14:13 | NUR ---
Called and spoke with pt's sister Susanne in [place]. Updated to pts status, she asks questions about lactulose as pt told her she doesn't want to take. Updated how this helps pt's mentation and she states understanding, pt will need to take forever. She requests we keep her updated.
--- NOTE | 2019-07-24 15:14 | NUR ---
SET PATIENT UP FOR A SHOWER TODAY.
--- NOTE | 2019-07-24 15:22 | NUR ---
PATIENT IS LAYING IN BED. WATCHING TV.
--- NOTE | 2019-07-24 16:27 | NUR ---
COMPLETED AFTERNOON ASSESSMENT. PT SITTING IN CHAIR, BREATHING REGULAR, UNLABORED. ABDOMEN DISTENDED, NONTENDER. PT EXPRESSED FEELING PRESSURE BUT NO PAIN IN ABDOMEN. ORDERED PT DINNER. REAL ESTATE LISTING CONSULTANT IN TO ASSIST PT TO SHOWER.
--- NOTE | 2019-07-24 18:43 | NUR ---
PT HAD GOOD DAY. UP IN CHAIR MOST OF DAY, EATING WELL, DAILY WEIGHTS WELL. VITALS STABLE, AFEBRILE. MIDLINE PLACED. 3 BM TODAY. WORKED WELL WITH PT. 3600 ML OUT ON PARACENTISIS.
--- NOTE | 2019-07-24 19:03 | NUR ---
IN ROOM FOR REPORT, PT HAS VISITOR IN THE ROOM. HE DENIES NEEDS AT THIS TIME. CALL LIGHT IS CLOSE.
--- NOTE | 2019-07-24 19:15 | NUR ---
RECEIVED REPORT FROM SN NAVA. AND JAIME DAMON. pt SITTING IN CHAIR, ALARM ON. WHITEBOARD UPDATED. NO REQUESTS AT THIS TIME. CALL LIGHT WITHIN REACH.
--- NOTE | 2019-07-24 19:44 | NUR ---
pt caused chair alarm to go off, stated "Im going to get a soda". I told pt I will grab it for her and to not get out of the chair by herself due to her unsteadiness on her feet. she agreed. Fresh ice water was given along with a pepsi.
--- NOTE | 2019-07-24 19:45 | NUR ---
PT IS AMBULATING IN THE [place] WEARING A MASK.
--- NOTE | 2019-07-24 20:35 | NUR ---
pt used call light to ask for assistance into the restroom. she resulted in 220 ccs and a small bm. She requested to get into bed and to have some warm blankets. She is currently watching tv, BST next to bed. Nothing else needed at this time.
--- NOTE | 2019-07-24 22:15 | NUR ---
ASSESSMENT DONE. MEDICATIONS GIVEN (SEE MAR). pt ORIENTED TO SELF, NOT ORIENTED TO PLACE. PROVIDED WITH A SANDWICH AND WATER. NO FURTHER REQUESTS AT THIS TIME. SITTING IN BED WATCHING TV. CALL LIGHT WITHIN REACH. BED ALARM ON.
--- NOTE | 2019-07-24 22:15 | NUR ---
pt requested sandwich box. RN OK'd this request and fresh water was given. Nothing further needed at this time.
--- NOTE | 2019-07-25 00:40 | NUR ---
pt RESTING IN BED WITH EYES CLOSED, RESPIRATIONS REGULAR AND UNLABORED. BED ALARM ON. IV INFUSION COMPLETED, MIDLINE HEPLOCKED.
--- NOTE | 2019-07-25 02:15 | NUR ---
pt ATTEMPTING TO GET OUT OF BED, BED ALARMING. pt REORIENTED TO SITUATION AND PLACE. UP 1PA FWW TO VOID. pt ATTEMPTED TO GET OFF TOILET WITHOUT ASSISTANCE. SMALL FORMED BM AND UNMEASURED VOID. pt BACK TO BED 1PA FWW. ASSESSMENT DONE. NO REQUESTS AT THIS TIME. CALL LIGHT WITHIN REACH.
--- NOTE | 2019-07-25 03:43 | NUR ---
BED ALARM SOUNDED, PT WAS TRYING TO SIT UP SO SHE COULD THROW HER GARBAGE AWAY AND ALSO WANTED THE PHONE. REMINDED HER THAT SHE NEEDS TO CALL AND NOT TO GET UP ON HER OWN. ALSO REMINDED HER THAT IT IS ONLY 340AM. BED ALARM IS ON.
--- NOTE | 2019-07-25 03:56 | NUR ---
pt AWAKE. BOOSTED IN BED. PROVIDED SOMETHING TO EAT. pt USING PHONE. MIDLINE WRAPPED TO PROTECTED. CALL LIGHT WITHIN REACH. BED ALARM ON.
--- NOTE | 2019-07-25 06:35 | NUR ---
NOTIFIED ABOUT CRITICAL LAB VALUE. NEW ORDERS ENTERED.
--- NOTE | 2019-07-25 06:41 | NUR ---
DR OTTO CALLED BACK AFTER TALKING WITH SACHIN AND SAID TO TRANSFUSE 2 UNITS OF BLOOD. ORDERS ENTERED.
--- NOTE | 2019-07-25 09:03 | NUR ---
COMPLETED ASSESSMENT. PT BREATHING REGULAR, EVEN, UNLABORED. ABDOMEN DISTENDED, NONTENDER. PT REPORTED FEELING PRESSURE IN ABDOMEN, NO PAIN. MIDLINE WRAPPED TO PREVENT PT PULLING AT IT, FLUSHED WELL. MORNING MEDS GIVEN, PT SITTING IN CHAIR EATING BREAKFAST. CHAIR ALARM IN PLACE, CALL LIGHT IN REACH.
--- NOTE | 2019-07-25 09:30 | NUR ---
Spoke with Shaila. States she is not feeling well today. She is very tired. Updated I have spoken with Za at [facility] and she will check with Housing to see if there is anything available when Shaila leaves the SNF. I also updated, I have spoken with [facility], and they have sent auth to medicaid. Pt will more than likely remain hospitalized through the weekend with placement to SNF next week. Pt twitches frequently during the conversation and has difficulty answering questions. Response is very slow.
--- NOTE | 2019-07-25 10:13 | NUR ---
BLOOD ADMINISTRATION STARTED. UNIT 1 OF 2. PT VITALS SIGNS STABLE.
--- NOTE | 2019-07-25 10:30 | NUR ---
PT HAD NO ADVERSE REACTION IN FIRST 15 MINS OF BLOOD INFUSION. CHANGED RATE TO 175ML HR. PT RESTING IN CHAIR, EYES CLOSED, BREATHING EASY, EVEN, UNLABORED. CALL LIGHT IN REACH.
--- NOTE | 2019-07-25 11:08 | NUR ---
PT SITTING IN CHAIR, RECEIVING TRANSFUSION. STILL MUMBLED RESPONSES. DID GET A KNODD YES FOR A REFILL ON HER WATER. GAVE BLESSING, WILL CONTINUE TO FOLLOW
--- NOTE | 2019-07-25 11:12 | NUR ---
PATIENT IS EATING WELL NOW. REMAINS ON A 2 GRAM SODIUM DIET DUE TO ASCITES. AWAITING DISCHARGE PLAN. SHE WOULD BENEFIT FROM A SODIUM-CONTROLLED DIET AT HOME DUE TO FLUID RETENTION FROM LIVER DISEASE.
--- NOTE | 2019-07-25 12:30 | NUR ---
FIRST UNIT OF BLOOD COMPLETED, PT HAD NO ADVERSE REACTIONS. VITAL SIGNS STABLE. STARTED SECOND UNIT. ASSISTED PT TO BATHROOM FOR VOID AND LARGE BM. PT SITTING IN CHAIR EATING [place]. CALL LIGHT IN REACH.
--- NOTE | 2019-07-25 13:14 | NUR ---
NO ADVERSE REACTION TO SECOND BLOOD UNIT. VITAL SIGNS STABLE. INCREASED INFUSION RATE. PT WALKING HALLS WITH PHYSICAL THERAPY.
--- NOTE | 2019-07-25 14:20 | NUR ---
PT TOLERATED SECOND BLOOD UNIT WELL. NO ADVERSE REACTIONS, VITALS STABLE. COMPLETED ASSESSMENT. PT DENIES SOB OR CHEST PAIN. ABX DISTENDED, NONTENDER. FLUSHED MIDLINE AND HEPLOCKED. PT IN CHAIR WITH ALARM ON. CALL LIGHT IN REACH.
--- NOTE | 2019-07-25 16:19 | NUR ---
PATIENT WAS SITTING IN HER CHAIR. I HEARD HER TV REMOTE FALL ON THE FLOOR. SO I WENT IN AND ASKED HER IF SHE NEEDED ANY HELP AND SHE SAID SHE WOULD LIKE TO GO BACK TO BED. SO I HELPED HER BACK TO BED.
--- NOTE | 2019-07-25 16:25 | NUR ---
BED ALARM ON.
--- NOTE | 2019-07-25 16:26 | NUR ---
SHE TOLD ME WHAT SHE WANTED TO EAT FOR BREAKFAST AND I ORDERED IT.
--- NOTE | 2019-07-25 17:06 | NUR ---
ADMINISTERED MEDICATIONS PER ORDERS. PT STATED "THIS IS THE LONGEST I HAVE GONE WITHOUT A DRINK." DISCUSSED WITH PT THIS IS A GOOD ACCOMPLISHMENT AND IT IS IMPORTANT TO STAY AWAY FROM ALCOHOL FOR HER FUTURE HEALTH.
--- NOTE | 2019-07-25 18:12 | NUR ---
PT HAD GOOD DAY. ORIENTED TO PERSON, CONFUSED ON DAY AND PLACE. 2 UNITS BLOOD RECIEVED, NO ADVERSE REACTIONS, HGB INCREASED TO 9.3. EATING AND DRINKING WELL. NO ISSUES WITH VOIDING OR BM. USES CALL LIGHT APPROPRIATELY. WALKED HALLS SEVERAL TIMES WITH PT. MIDLINE IN RT ARM HEPLOCKED. PT VITALS STABLE.
--- NOTE | 2019-07-25 19:10 | NUR ---
SHIFT REPORT RECEIVED FROM DAYSHIFT RN NELSON AND STUDENT AT BEDSIDE. PT AWAKE AND RESTING IN BED, NO NEEDS VERBALIZED. CALL LIGHT IN REACH, BED ALARM ON FOR SAFETY.
--- NOTE | 2019-07-25 21:16 | NUR ---
ASSESSMENT COMPLETE, SCHEDULED MEDS GIVEN (SEE EMAR) WITHOUT ISSUE. PT A/O TO PERSON AND DATE. FORGETFUL, REORIENTED TO PLACE AND EVENTS. SLOW TO RESPOND, FLAT AFFECT. VSS, PT ON RA. NO RESPIRATORY DISTRESS NOTED, RR EVEN AND UNLABORED. ABDOMINAL DISTENTION NOTED, WILL MONITOR FOR CHANGES. ETELVINA HOSE IN PLACE, PEDAL PULSES NOTED. MIDLINE DRESSING INTACT, SITE WNL. FLUSHED AND HEPLOCKED PER POLICY. NO FURTHER NEEDS, CALL LIGHT IN REACH. BED ALARM ON FOR SAFETY.
--- NOTE | 2019-07-25 21:30 | NUR ---
VS and I&Os complete. Fresh water given. Nothing needed at this time.
--- NOTE | 2019-07-26 00:07 | NUR ---
PT RESTING IN BED, WATCHING TELEVISION. NO NEEDS VERBALIZED, SCD'S AND ETELVINA HOSE IN PLACE. CALL LIGHT IN REACH, BED ALARM ON FOR SAFETY.
--- NOTE | 2019-07-26 02:12 | NUR ---
PT RESTING IN BED WITH EYES CLOSED, NO DISTRESS NOTED. PT APPEARS COMFORTABLE, CALL LIGHT IN REACH. BED ALARM ON FOR SAFETY.
--- NOTE | 2019-07-26 04:22 | NUR ---
pt called out for "Conner" and I reoriented her to place. I asked if she would like to use the restroom and she stated "yes." As ambulating, She had wet through her underwear. New magen hose, socks, underwear and SCDs applied after being cleaned up. VS and I&Os completed and documented, fresh water given. RN in pt room. nothing further needed at this time.
--- NOTE | 2019-07-26 04:30 | NUR ---
PT RESTING IN BED, ASSESSMENT COMPLETE, NO NEW CHANGES OR CONCERNS. PT REMAINS FORGETFUL, REORIENTS EASILY. BED ALARM ON FOR SAFETY. MIDLINE SITE WNL, DRESSING INTACT AND HEP LOCKED FROM FIRST ASSESSMENT. NO CHANGE IN ARM CIRCUMFERENCE. PT REPORTS 9/10 PAIN, BUT NO MOANING OR CRYING NOTED. RR WNL, PT REPOSITIONED AND PROVIDED WITH ICE PACK. NO DISTRESS NOTED. SCD'S AND ETELVINA HOSE IN PLACE. NO FURTHER NEEDS, CALL LIGHT IN REACH.
--- NOTE | 2019-07-26 05:48 | NUR ---
PT HAD A GOOD NIGHT, SLEPT ON AND OFF DURING THE SHIFT. VSS, PT ON RA. BED ALARM ON FOR SAFETY, PT ATTEMPTED TO GET UP ON HER OWN THROUGHOUT THE NIGHT. REORIENTS EASILY, SLOW TO RESPOND. 2G SODIUM DIET, TOLERATING WELL. NO NAUSEA REPORTED. GENERALIZED BACK PAIN CONTROLLED WITH USE OF REPOSITIONING AND ICE PRN. 1PA WITH FWW.
--- NOTE | 2019-07-26 09:12 | NUR ---
PT SITTING UP IN CHAIR ALERT AND ORIENTED TO PERSON AND PLACE. PT ASSISTED WITH SETTING UP BREAKFAST TRAY AND IS EATING. AM MEDS ADMINISTERED. AM ASSESSMENT COMPLETED. CALL LIGHT AND H2O IN REACH. PT IN VIEW OF NURSING STATION.
--- NOTE | 2019-07-26 10:40 | NUR ---
PER MD REQEUST CBG CHECKED AND WAS 96. PT REPORTS SOME NAUSEA SO PRN IV ZOFRAN ADMINISTERED TO MID LINE AND MIDLINE HEP LOCKED. PT GIVEN HIGH PROTEIN ENSURE PER HER REQEUST. CALL LIGHT AND H2O IN REACH PT SITTING UP RECLINED IN CHAIR AND APPEARS TO BE IN NO DISTRESS.
--- NOTE | 2019-07-26 13:00 | NUR ---
PT SITTING UP BED ALERT AND ORIENTED CALL LIGHT AND H2O IN REACH. PT DENIES NEEDS OR CONCERNS. SCHEDULED MED ADMINSITERED AND ASSESSMENT COMPLETED.
--- NOTE | 2019-07-26 14:07 | NUR ---
PT RESTING SUPINE IN BED ALERT AND ORIENTED AND WATCHING TV. PT CONTINUES SLIGHT TREMORS, PER MD'S PREVIOUS REQEUST PT'S BLOOS SUGAR WAS CHECKED AND FOUND TO BE WNL AT 104. PT TOLERATED FULL ENSURE. CALL LIGHT AND H2O IN REACH. PT DENIES NAUSEA, PAIN, SOB OR OTHER S/SX'S.
--- NOTE | 2019-07-26 16:39 | NUR ---
PT RESTING RECLINED IN BED REQUESTED AND RECEIVED SBA UP TO RESTROOM AND BACK TO BED PER KENZIE OLSON. NO FURTHER NEEDS OR OCNCERNS VOICED.
--- NOTE | 2019-07-26 17:29 | NUR ---
PT SITTING UP IN CAHIR WATCHING GAME SHOW AND EATING DINNER. PT TOLERATING SALMON AND MASHED POTATOES WELL WITH NO REPORTED NAUSEA. SCHEDULED MED ADMINISTERED. FRESH WATER IN REACH. NO NEEDS OR CONCERNS VOICED.
--- NOTE | 2019-07-26 19:00 | NUR ---
SHIFT REPORT RECEIVED FROM DAYSHIFT JAIME TREVIZO AT BEDSIDE. PT AWAKE AND RESTING IN CHAIR AND TALKING ON THE PHONE. NO NEEDS VERBALIZED, CALL LIGHT IN REACH. BOARD UPDATED.
--- NOTE | 2019-07-26 19:22 | NUR ---
pt used call light to state "I am bored". I asked if she wanted to change the televison station and she said "no". I asked if she needed to use the restroom, again she stated "no, but I am cold". pt recieved a warm blanket, but nothing else was needed at this time. call light within reach and chair alarm set.
--- NOTE | 2019-07-26 21:19 | NUR ---
ASSESSMENT COMPLETE, SCHEDULED MEDS GIVEN (SEE EMAR). PT A/O TO SELF AND DATE. EASILY REORIENTED TO PLACE AND SURROUNDINGS. VSS, PT ON RA. NO DISTRESS NOTED PT DENIES PAIN AND NAUSEA. MIDLINE DRESSING WNL, DRESSING INTACT. FLUSHED AND HEP LOCKED PER POLICY. ETELVINA HOSE AND SCD'S IN PLACE. NO FURTHER NEEDS, CALL LIGHT IN REACH. BED ALARM ON FOR SAFETY.
--- NOTE | 2019-07-26 22:15 | NUR ---
pt used call light to ask for more warm blankets. JAIME Weaver retrieved warm blankets.
--- NOTE | 2019-07-26 23:56 | NUR ---
PT RESTING QUIETLY IN BED, EYES CLOSED. RESPIRATIONS EVEN AND UNLABORED. NO DISTRESS NOTED, SCD'S ON. CALL LIGHT IN REACH, BED ALARM ON FOR SAFETY.
--- NOTE | 2019-07-27 02:00 | NUR ---
PT RESTING IN BED WITH EYES CLOSED. RESPIRATIONS EVEN AND UNLABORED, NO DISTRESS NOTED. CALL LIGHT IN REACH, BED ALARM ON.
--- NOTE | 2019-07-27 04:20 | NUR ---
THIS RN IN ROOM TO ASSIST PT TO BATHROOM. PT STATES SHE'S IN [place]. A/O TO SELF AND DATE. REORIENTED TO PLACE AND SURROUNDINGS. WHILE RETURNING TO BED PT GOT WEAK AND UNSTEADY, ASSISTED PT TO EDGE OF BED TO SIT. PT REPORTS FEELING A LITTLE DIZZY, VSS. PUPILS REACTIVE TO LIGHT, NO DISTRESS NOTED. LUNG SOUNDS CLEAR. NO CHANGES PHYSICALLY FROM PREVIOUS ASSESSMENT. SNACK PROVIDED PER PT REQUEST.NO FURTHER NEEDS, CALL LIGHT IN REACH. BED ALARM IN PLACE.
--- NOTE | 2019-07-27 04:45 | NUR ---
ENTERED PT ROOM TO REASSESS PAIN. PT WAS LYING IN BED WITH ARM PROPPED UP ON PILLOW. THE BED WAS IN LOWEST POSITION, HEAD SIDE RAILS UP X2, AND CALL LIGHT WITHIN REACH. PATIENT MOVED WHILE TALKING AND DID NOT NEED ANYTHING ELSE. HEAD SIDE RAILS WERE UP X2, BED IN LOWEST POSITION, AND CALL LIGHT WITHIN REACH WHEN LEARNING STRATEGIST LEFT ROOM.
--- NOTE | 2019-07-27 06:20 | NUR ---
ENTERED ROOM TO HELP PT TO USE BATHROOM. PT WAS LAYING IN BED WITH PILLOW UNDER RIGHT ARM. BED WAS IN LOWEST POSTION, HEAD RAILS UP X2, AND CALL LIGHT WITHIN REACH. PT USED RESTROOM. PT WAS HELPED TO CHAIR. PT WAS LEFT IN CHAIR, LEGS UP, WHEELS LOCKED, AND CALL LIGHT WITHIN REACH.
--- NOTE | 2019-07-27 07:38 | NUR ---
Received message from Shaila's sister Susanne. She is wanting to know if we were able to contact the [employer] [place] about [place] and if pt would qualify for [employer]. Returned call and left a message, I contacted Margie De La Cruz [facility] and she will look into housing. She does not think this is possible at this point as there is a waiting list. Also let her know, she would qualify for [employer] and I will call them Sunday to schedule, if Shaila is in agreement.
--- NOTE | 2019-07-27 09:00 | NUR ---
PT SITTING UP IN BED EATING BREAKFAST. AM ASSESSMENT COMPLETED AND CALL LIGHT IN REACH. PT DENIES NEEDS OR CONCERNS. AM MEDS ADMINISTERED. PT ALERT AND ORIENTED TO PERSON AND PLACE.
--- NOTE | 2019-07-27 13:09 | NUR ---
PT SITTING UP IN BED WATCHING TV. PT ALERT AND ORIENTED TO PERSON STATES "I'M [place] [facility]" PT REORIENTED TO PLACE, SITUATION AND DATE. PT ASSESSMENT COMPLETED AND SCHEDULED MED ADMINISTERED. CALL LIGHT AND H2O IN REACH. SCD'S ON AND IV INFUSING ORDERED.
--- NOTE | 2019-07-27 14:23 | NUR ---
IN PT ROOM FOR VITALS. PT LYING IN BED WATCHING TV. PT STATES NO NEEDS AT THIS TIME. BEDSIDE TABLE AND CALL LIGHT WITHIN REACH. BED IN LOWEST POSITION WITH THREE RAILS UP.
--- NOTE | 2019-07-27 16:58 | NUR ---
PT ASSISTED TO SITTING UP IN BED AND IS NOW EATING DINNER (STEAK, MEASHED POTATOES GRAVY AND CORN). NO FURTHER NEEDS OR CONCERNS VOICED. IV FLUIDS CONTINUE TO INFUSE ORDERED. PT DENIES NAUSEA, SOB, PAIN OR OTHER SYMPTOMS.
--- NOTE | 2019-07-27 18:54 | NUR ---
PT ASSSITED ONTO BEDPAN PT HAD LOOSE STOOL AND UNMEASURED VOID. PT ASSISTED IN CLEANING UP WITH 2PA AND THEN UP INTO POSITION OF COMFORT IN BED. CALL LIGHT AND H2O IN REACH. BED ALARM ON AND PT IN VIEW OF NURSING STATION.
--- NOTE | 2019-07-27 19:00 | NUR ---
SHIFT REPORT RECEIVED FROM DAYSHIFT JAIME TREVIZO AT BEDSIDE. PT AWAKE AND RESTING IN BED AND WATCHING TELEVISION. IV FLUIDS INFUSING, MIDLINE SITE WNL. PT DENIES NEEDS, BED ALARM ON FOR SAFETY. CALL LIGHT IN REACH.
--- NOTE | 2019-07-27 20:53 | NUR ---
ASSESSMENT COMPLETE, SCHEDULED MEDS GIVEN. PER DEX FROM [employer], OKAY TO CRUSH SCHEDULED EVENING MEDS. EXTENDED RELEASE MEDS GIVEN WHOLE. PT A/O TO SELF, DATE, AND PLACE. BED ALARM REMAINS IN PLACE FOR SAFETY. ABDOMINAL DISTENTION NOTED, FIRM AND TENDER TO THE TOUCH. PT DENIES NAUSEA. BT ACTIVE, SNACK PROVIDED PER REQUEST. MIDLINE SITE WNL, FLUIDS COMPLETE. SALINE FLUSHED AND HEP LOCKED PER POLICY. NO FURTHER NEEDS, CALL LIGHT IN REACH.
--- NOTE | 2019-07-27 22:00 | NUR ---
pt used call light to ask for a warm blanket. nothing further needed at this time.
--- NOTE | 2019-07-27 22:47 | NUR ---
PT REPOSITIONED WITH HELP FROM KENZIE ESPANA. BILATERAL HIPS FLOATED. NO FURTHER NEEDS, CALL LIGHT IN REACH.
--- NOTE | 2019-07-27 23:29 | NUR ---
PT TALKING ON THE PHONE, DENIES NEEDS. NO DISTRESS NOTED, CALL LIGHT IN REACH. BED ALARM ON.
--- NOTE | 2019-07-28 01:22 | NUR ---
PT RESTING IN BED WITH EYES CLOSED, RESPIRATIONS EVEN AND UNLABORED. NO DISTRESS NOTED, PT APPEARS COMFORTABLE. CALL LIGHT IN REACH, BED ALARM IN PLACE.
--- NOTE | 2019-07-28 03:14 | NUR ---
ASSESSMENT COMPLETE. PT RESTING IN BED, RECENTLY MEDICATED WITH PRN ZOFRAN BY JAIME STEPHENSON FOR ABDOMINAL NAUSEA. EMESIS BAG AT BEDSIDE, NO EMESIS NOTED. ABDOMINAL DISTENTION AND TENDERNESS REMAINS, BT ACTIVE. PT REPORTS "FEELING WARM", ORAL TEMP OF 99.2. EXCESS BLANKETS REMOVED. SCD'S AND ETELVINA HOSE IN PLACE. NO FURTHER NEEDS. CALL LIGHT IN REACH, BED ALARM IN PLACE.
--- NOTE | 2019-07-28 04:18 | NUR ---
pt REPOSITIONED. PROVIDED WITH A SNACK. RESTING IN BED WITH BED ALARM ON. NO FURTHER REQUESTS AT THIS TIME. CALL LIGHT WITHIN REACH.
--- NOTE | 2019-07-28 05:20 | NUR ---
AMBULATES TO BATHROOM WITHOUT ANY DIFFICULTIES. UPON RETURNING TO BED, BECOMES SHAKY AND HAS DIFFICULTY STANDING. MULTIPLE ATTEMPTS TO SIT PRIOR TO REACHING BED. WITH PROMPTS, REMAINS STANDING, THEN SITS ON BED AND LAYS TO RIGHT SIDE UPON SITTING. LAYS FOR A MINUTE TO RECOVER. STANDS AND TAKES A FEW STEPS TOWARD HEAD OF BED AND LAYS SELF BACK IN BED. DENIES OTHER NEEDS AT THIS TIME. VITALS OBTAINED, CALL LIGHT IN REACH. SIDE RAILS UP AND BED ALARM ON.
--- NOTE | 2019-07-28 05:45 | NUR ---
LAB IN TO COLLECT BLOOD. PT AWAKE AND RESTING IN BED, NO NEEDS VERBALIZED, REPORTS HER STOMACH IS "FEELING BETTER". SNACK PROVIDED RECENTLY IN RN ALBINA. SCD'S IN PLACE.
--- NOTE | 2019-07-28 07:29 | NUR ---
PT RESTING SOUNDLY AT TIME OF BEDSIDE REPORT AWAKENS TO VOICE. DENIES NEEDS OF
--- NOTE | 2019-07-28 07:50 | NUR ---
Clinicals for last two days sent to Amena at [facility]. Will check with in 0830 huddle if pt will dc to day to SNF.
--- NOTE | 2019-07-28 09:46 | NUR ---
PT UP TO THE CHAIR FOR MORNING MEAL SHE EATS BITES ONLY REFUSES OFFER OF OTHER ITEMS. AMBULATES TO THE TOILET 2 PERSON ASSIST, BECOMES VERY SHAKEY. REPORTED TO DR OTTO WHEN HE WAS IN LATER, GABAPENTIN DC'D. PT UP IN HTE CHAIR AT THIS TIME P/T IN TO SEE HER
--- NOTE | 2019-07-28 10:13 | NUR ---
PATIENT SITTING UP IN CHAIR. PHYSICAL THERAPIST IN ROOM. LINENS CHANGED. GOWN CHANGED. PATIENT GOES TO WALK IN THE HALLWAY. PATIENT USES WALKER AND GATE BELT. TWO PERSON ASSISTING. PATIENT BACKS TO CHAIR. CALL LIGHT WITHIN REACH. NO OTHER NEEDS AT THIS TIME
--- NOTE | 2019-07-28 10:45 | NUR ---
PATIENT SITTING UP IN CHAIR. VITAL SIGNS AND I&O DONE. PATIENT ASSISTED TO USE THE BASE COMMODE. PATIENT USES WALKER. TWO PERSON ASSISTING. CALL LIGHT WITHIN REACH. NO OTHER NEEDS AT THIS TIME
--- NOTE | 2019-07-28 11:00 | NUR ---
Spoke with Shaila. She remains very slow to answer questions. States her sister is planning on returning to [place] to care for her. Pt does not have housing and Ssuanne would like help with this. Encouraged for her to call [employer] to see what is available. Updated I have beeb speaking with Za De La Cruz and she was checking for housing. Discussed end of life and talked about hospice. Also discussed if would be will to eventually go to an assisted living when she leaves the [facility]. Called and spoke with Susanne and she states when she gets her stimulus check she is planning on returning to [place] from [place] and assisting Shaila. She will check with Dorothea for housing after Shaila leaves the [facility]. Updated about our earlier conversation, she is interested in Hospice for Shaila.
--- NOTE | 2019-07-28 11:22 | NUR ---
PT CONTINUES TO SIT UP IN THE CHAIR WORKS WITH P/T THEN DR OTTO IN TO SEE HER. DENIES DISCOMFORTS OR NEEDS AT THIS TIME
--- NOTE | 2019-07-28 12:26 | NUR ---
PT SITTING IN CHAIR NAPPING. JAIME LOBO INCOURAGED ME TO WAKE PT, AND I FOUND HER TO BE ENGAGING IN CONVERSATION TODAY THAN PREVIOUS. PT RESPONDED TO QUESTIONS IN COMPLETE SENTENCES WHICH SHE HAD NOT DONE IN EARLIER VISITS. PT SAID SHE HAD SLEPT WELL LAST NIGHT. SHE HAS SOME PAIN IN HER CHEST, AND THEN SAID SHE IS VERY WEAK. SHE WOULD LIKE TO WALK, BUT SAID "MY LEGS JUST GIVE OUT. I AM SO WEAK". PT REQUESTED PRAYER AND I LEFT HER A G.POST. WILL VISIT AGAIN
--- NOTE | 2019-07-28 13:10 | NUR ---
PATIENT RESTING IN BED. VITAL SIGNS AND I&O DONE. CALL LIGHT WITHIN REACH. NO OTHER NEEDS AT THIS TIME
--- NOTE | 2019-07-28 13:23 | NUR ---
S/T IN TO ASSESS PT DURING NOON MEAL. STAFF ASSIST AFTER SHE LEAVES DUE TO PT HAND TREMOR MAKING EATING DIFFICULT. MEAL WELL TOLERATED NO DIFFICULT SWALLOW OR COUGHING DURING MEAL. PT CONTINUED IN THE CHAIR FOR A TIME AFTER THAT THEN ASSISTED TO THE BED TO REST. CALL LIGHT IN REACH FLUIDS AT BEDSIDE
--- NOTE | 2019-07-28 14:00 | NUR ---
Spoke with Amena from [facility]. They have auth from medicaid for Shaila to admit. Updated I am not sure if she will dc tomorrow. Will notify after 829 meeting. Returned call to Susanne, pt's sister. She was again wondering about housing through the [employer] or low income housing. She states Shaila applied nearly a year ago. Updated, I have called and left a message with Za. Susanne was unable to reach anyone from housing. Informed I think they are closed due to Covid.
--- NOTE | 2019-07-28 17:11 | NUR ---
PATIENT SITTING UP ON THE EDGE OF THE BED. VITAL SIGNS AND I&O DONE. HIGH BLOOD PRESSURE. RN NOTIFIED. PATIENT ASSISTED TO TRANSFER TO CHAIR. PATIENT USES WALKER. TWO PERSON ASSISTING. SETS UP TABLE FOR DINER. CALL LIGHT WITHIN REACH. NO OTHER NEEDS AT THIS TIME
--- NOTE | 2019-07-28 17:13 | NUR ---
PT UP TO THE CHAIR FOR EVENING MEAL.
--- NOTE | 2019-07-28 17:33 | NUR ---
PT SELF FEEDING
--- NOTE | 2019-07-28 19:15 | NUR ---
BEDSIDE REPORT RECEIVED FROM JAIME LOBO. pt RESTING IN BED, AWAKE. DENIES ANY NEEDS AT THIS TIME. BED ALARM ON AT THIS TIME. CALL LIGHT IN REACH.
--- NOTE | 2019-07-28 19:30 | NUR ---
RECEIVED SHIFT REPORT FROM JAIME LOBO, pt RESTING IN BED SAFELY WITH CALL LIGHT IN REACH AND BED ALARM ON. DENIES ANY NEEDS AT THIS TIME.
--- NOTE | 2019-07-28 21:05 | NUR ---
pt ASSESSMENT COMPLETE, VS AND I+O's COMPLETE, EVENING MEDS GIVEN PER ORDERS. ORTHOSTATIC VS COMPLETED, pt TOLERATED WELL. pt RESTING IN BED SAFELY WITH CALL LIGHT IN REACH AND BED ALARM ON.
--- NOTE | 2019-07-28 21:30 | NUR ---
pt CALLED FOR ASSISTANCE TO THE BATHROOM, pt AMBULATED WITH 1PA WITH FWW TO BATHROOM. CLEAN CATCH ATTEMPTED BUT UNABLE TO OBTAIN DUE TO URGENCY AND pt SAFETY. pt BECAME SUDDENLY UNSTEADY ON FEET WITH FWW USE, 2PA MAX ASSIST BACK TO BED. pt ASKED ABOUT SHOWERING, EDUCATED ON pt SAFETY ON NOT SHOWERING AT THIS TIME. pt VERBALIZED UNDERSTANDING. pt RESTING IN BED SAFELY WITH CALL LIGHT IN REACH, SCD's ON, AND BED ALARM ON.
--- NOTE | 2019-07-28 22:40 | NUR ---
pt USED CALL LIGHT STATED, SHE NEEDED TO GO BACK TO HER ROOM. pt WAS REORIENTED AND DENINED ANY OTHER NEEDS, RESTING IN BED SAFELY WITH CALL LIGHT IN REACH AND BED ALARM ON.
--- NOTE | 2019-07-28 23:50 | NUR ---
BED ALARM ALARMING, pt ATEMPTING TO CRAWL OUT OF BED. pt ASKED IF SHE NEEDED TO USE THE BATHROOM, pt DENIED NEED TO USE THE BATHROOM. pt STATED, "I'M SEEING A LITTLE BOYS HEAD AND A WOMEN STANDING IN THE CORNER". pt REORIENTED AND DENIES ANY OTHER NEEDS AT THIS TIME. RESTING SAFELY IN BED, CALL LIGHT IN REACH, BED ALARM ON.
--- NOTE | 2019-07-29 01:45 | NUR ---
pt CALLED FOR ASSISTANCE TO BATHROOM. SN JARAMILLO AND Kacie ASSISTED pt TO BSC AND BACK TO BED. pt VERY UNSTEADY AND WEAK. RSTING IN BED SAFELY WITH CALL LIGHT IN REACH AND BED ALARM ON. pt DENIES ANY OTHER NEEDS AT THIS TIME.
--- NOTE | 2019-07-29 03:45 | NUR ---
pt IS RESTING IN BED SAFELY WITH EYES CLOSED, RR EVEN AND UNLABORED. CALL LIGHT IN REACH AND BED ALARM ON.
--- NOTE | 2019-07-29 05:00 | NUR ---
pt CALLED FOR ASSISTANCE TO BSC, 2PA TO BSC, pt VOIDED, URINE SAMPLE COLLECTED AND SENT TO LAB. pt ASSISTED BACK TO BED. 2ND pt ASSESSMENT COMPLETED, VS AND I+O's COMPLETED, pt RESTING SAFELY WITH CALL LIGHT IN REACH, SCD's IN USE, AND BED ALARM ON. DENIES ANY FURTHER NEEDS AT THIS TIME.
--- NOTE | 2019-07-29 05:25 | NUR ---
pt RESTED OFF AND ON THROUGHOUT THE NIGHT, BED ALARM SET OFF MULTIPLE TIMES, pt CONFUSED ABOUT THE TIME BUT A+O TO SELF AND PLACE. pt WEAK AND UNSTEADY, NEEDED MAX 2PA TO BSC. OCCASIONAL USE OF CALL LIGHT. MIDLINE LAMINE HEP LOCKED, PATENT. RA AND VS STABLE.
--- NOTE | 2019-07-29 07:45 | NUR ---
PT UP IN THE CHAIR FOR BKF, ONE PERSON ASSISTANCE NEEDED FOR THIS. PT TALKING ON PHONE TO SISTER, IT WAS REPORTED THAT HER SISTER WANTS HER TO COME TO [place] TO LIVE WITH HER.
--- NOTE | 2019-07-29 08:15 | NUR ---
PT ATE BKF AND WAS IN THE PROCESS OF GIVING HER MEDICATION AND PT BEGAIN TO THROW UP ALL HER BKF AND MEDICATIONS. DR HARPER ON UNIT AND WILL GIVEN PT BOWEL REST AT THIS TIME. PT BACK TO BED, SIDE RAILS UP X 4 AND BED ALARM ON. SCD'S ON AND PT IS TRYING TO SLEEP.
--- NOTE | 2019-07-29 08:50 | NUR ---
Pt. discussed in [address] Roman plan to dc to [facility] after lunch, if pt is able to eat and keep lunch down. Called Amena from [facility] and updated. Plan to discharge around 13:30. Pt will need taxi transport to [facility].
--- NOTE | 2019-07-29 09:00 | NUR ---
Attempted to see pt, nursing students are working with Shaila. Will return later.
--- NOTE | 2019-07-29 09:26 | NUR ---
PT ASLEEP AT THIS TIME, APPEARS TO BE CONFORTABLE AND RESP RATE EVEN AND UNLABORED AT THIS TIME.
--- NOTE | 2019-07-29 11:00 | NUR ---
PT UP TO THE SHOWER WITH THE NURSING STUDENTS, THEY HELPED HER GET SHOWERED AND BACK TO BED. LINE CHANGED AND DID WELL WITH IT. PT HAD NOT THROWN UP SINCE THIS AM. SHE DID SLEEP SOME AND IS COOPERATIVE WITH THE HSOPITAL ROUTINE.
[2019-07-29] MEDS ORDERED: SPIRONOLACTONE50 MG PO (11:01)
[2019-07-29] MEDS ORDERED: XIFAXAN550 MG PO (11:02)
[2019-07-29] MEDS ORDERED: PROPRANOLOL HCL20 MG PO (11:03)
[2019-07-29] MEDS ORDERED: DOXAZOSIN MESYLA1 MG PO (11:03)
[2019-07-29] MEDS ORDERED: SPIRONOLACTONE25 MG PO (11:03)
[2019-07-29] MEDS ORDERED: VITAMIN B-1100 M1 PO (11:04)
[2019-07-29] MEDS ORDERED: PANTOPRAZOLE SO40 MG PO (11:04)
[2019-07-29] MEDS ORDERED: THERA-M TABLET1 EA PO (11:04)
[2019-07-29] MEDS ORDERED: MAG6464 MG PO (11:04)
[2019-07-29] MEDS ORDERED: LACTULOSE20 GM/30 M PO (11:04)
--- NOTE | 2019-07-29 12:04 | NUR ---
PT BACK FROM IMAGING. SITING IN CHAIR, LEANING TO THE R. CALLED TO PT SHE RESPONDED. PT TOLD ME SHE IS SCARED. I ASKED HER WHAT ABOUT, SHE SAID, "MY BP SPIKED TWICE REALLY HIGH". SHE WENT ON TO SAY SHE DOESN'T KNOW WHY. SHE ALSO SAID SHE WOULD LIKE FOLLOW UP ON THIS. DEBRIEFED PT ABOUT HER FEAR, SHARED ENCOURAGEMENT WITH PT. SHE KNODDED HER ACKNOWLEDGEMENT. PT REQUESTED I PRAY FOR HER-PRAYED FOR COURAGE AND HELP FOR TODAY. SPENT MOST TIME YET WITH PT.
--- NOTE | 2019-07-29 12:09 | NUR ---
Updated Rondi from [facility]. Pt will dc in one hour.
--- NOTE | 2019-07-29 13:00 | NUR ---
NURSING STUDENTS GOT PT DRESSED FOR BE DISCHARGE TO [facility]. PERSONAL CLOTHING WHERE WET SO PT PLACED IN SCRUB PAINTS. AND THEN PT WENT BACK TO BED.
--- NOTE | 2019-07-29 13:55 | NUR ---
PT OUT TO THE FRONT AT THIS TIME VIA WC TO GO TO [facility]. TRYED TO CALL THEM TWICE AND WAS NOT ABLE TO GIVE REPORT. PACKET SENT WITH PT AT THIS TIME ALSO.
--- NOTE | 2019-07-29 14:05 | NUR ---
REPORT CALLED TO ORLIN SANDOVAL AT [facility]. ALL QUESTIONS ANSWERED AT THIS TIME.
--- NOTE | 2019-07-29 15:43 | NUR ---
Called and updated sister pt has discharged to [facility]. NOtified I have called [facility] for eval for when pt discharges from [facility]. Called and left message for Dana at [facility] as she did not answer.
== END 2019-07-29 13:55 | DRG 811 ==
LOC: ED 20:29 → CCU 23:15 → MS 23:15
PROVIDERS: ADMIT Internal Medicine
PROC: 30233N1 Transfusion of Nonautologous Red Blood Cells into Peripheral Vein, Percutaneous Approach (ICD-10-PCS; principal; 2019-07-15)
PROC: 05HA33Z Insertion of Infusion Device into Left Brachial Vein, Percutaneous Approach (ICD-10-PCS; 2019-07-16)
PROC: 0W9G3ZZ Drainage of Peritoneal Cavity, Percutaneous Approach (ICD-10-PCS; 2019-07-23)
DX: D62 Acute posthemorrhagic anemia (principal); E43 Unspecified severe protein-calorie malnutrition; E87.1 Hypo-osmolality and hyponatremia; E87.2 Acidosis; N17.9 Acute kidney failure, unspecified; E72.20 Disorder of urea cycle metabolism, unspecified; F10.231 Alcohol dependence with withdrawal delirium; K76.6 Portal hypertension; Z68.1 Body mass index [BMI] 19.9 or less, adult; F10.229 Alcohol dependence with intoxication, unspecified; R50.9 Fever, unspecified; E87.6 Hypokalemia; E83.42 Hypomagnesemia; K70.31 Alcoholic cirrhosis of liver with ascites; D73.1 Hypersplenism; K72.90 Hepatic failure, unspecified without coma; D61.818 Other pancytopenia; I10 Essential (primary) hypertension; Z87.891 Personal history of nicotine dependence; Z91.14 Patient's other noncompliance with medication regimen; Z78.1 Physical restraint status; Z88.8 Allergy status to other drugs, medicaments and biological substances; Z88.1 Allergy status to other antibiotic agents; Z88.6 Allergy status to analgesic agent; Z88.2 Allergy status to sulfonamides; Z79.899 Other long term (current) drug therapy
CPT/HCPCS: 36415; 36430; 36569; 49083; 71045; 71046; 76700; 80048; 80053; 80076; 81001; 82140; 82728; 82977; 83605; 83615; 83690; 83735; 84100; 84157; 85018; 85025; 85610; 85730; 86850; 86900; 86901; 86920; 87040; 87070; 87075; 87077; 87088; 87186; 87205; 89051; 92526; 92610; 96365; 96366; 97110; 97116; 97162; 97165; 97530; 97535; 99284-25; A9270; C9113; G0480; J0696; J1940; J2060; J2405; J3411; J3475; J3480; J7030; J7040; J7120; J7121; P9016; P9047

== ENCOUNTER 2019-07-31 11:31 | Emergency (ER) | payer OTHER ==
[~2019-07-31] VITALS: Ht 170.2 cm; Wt 55.5 kg
[~2019-07-31 11:31] MED LIST changes: +DOXAZOSIN MESYLA1 MG PO; +LACTULOSE20 GM/30 M PO; +MAG6464 MG PO; +PANTOPRAZOLE SO40 MG PO; +PROPRANOLOL HCL20 MG PO; +THERA-M TABLET1 EA PO
[2019-07-31] MEDS ORDERED: FAMOTIDINE40 MG PO (12:01)
[2019-07-31] MEDS ORDERED: DULCOLAX10 MG PR (12:03)
[2019-07-31] MEDS ORDERED: LACTULOSE10 GM/15 M PO (15:06)
== END 2019-07-31 15:32 | disposition home or self-care (01) ==
LOC: ED 11:31
DX: S09.90XA Unspecified injury of head, initial encounter (principal); D64.9 Anemia, unspecified; I10 Essential (primary) hypertension; Z79.899 Other long term (current) drug therapy; W18.30XA Fall on same level, unspecified, initial encounter
CPT/HCPCS: 70450; 71045; 80053; 81001; 82140; 85025; 85610; 85730; 99285-25; G0480

== ENCOUNTER 2019-08-07 20:34 | Emergency (ER) | payer OTHER ==
[~2019-08-07] VITALS: Ht 170.2 cm; Wt 55.2 kg
[~2019-08-07 20:34] MED LIST changes: +DULCOLAX10 MG PR; +FAMOTIDINE40 MG PO
[2019-08-07] MEDS ORDERED: NORVASC5 MG PO (20:45)
== END 2019-08-07 23:05 | disposition home or self-care (01) ==
LOC: ED 20:34
DX: S06.9X1A Unspecified intracranial injury with loss of consciousness of 30 minutes or less, initial encounter (principal); I10 Essential (primary) hypertension; D64.9 Anemia, unspecified; Z87.891 Personal history of nicotine dependence; Z88.1 Allergy status to other antibiotic agents; Z88.8 Allergy status to other drugs, medicaments and biological substances; Z79.899 Other long term (current) drug therapy; Z88.6 Allergy status to analgesic agent; W18.30XA Fall on same level, unspecified, initial encounter
CPT/HCPCS: 70450; 99284-25

== ENCOUNTER 2019-09-27 13:00 | Inpatient (IN) | payer OTHER ==
[~2019-09-27] VITALS: Ht 170.2 cm; Wt 49.0 kg
[~2019-09-27 13:00] MED LIST changes: +NORVASC5 MG PO
--- NOTE | 2019-09-27 16:49 | NUR ---
Patient arrives from ED with Victor Hugo Singleton RN/Nurse Tobacco Prevention Health Educator, via care fro admission to room 121 for Hepatic Encephalopathy. Assessment completed. VS obtained. History obtained at this time.
--- NOTE | 2019-09-27 18:21 | NUR ---
ADMITTED THIS EVENING FROM ER FOR HEPATIC ENCEPHALOPATHY. DISORIENTED TO TIME. CLEAR LIQUID DIET. IV SALINE LOCK IN PLACE.
--- NOTE | 2019-09-27 19:10 | NUR ---
REPORT RECEIVED FROM DAY SHIFT RN. PT LYING IN BED, DROWSY BUT RESPONDS TO VERBAL STIMULI. REPOSITIONED IN BED TO EAT DINNER TRAY WITH 2PA. BED ALARM ON FOR SAFETY. CALL LIGHT IN REACH. WHITE BOARD UPDATED.
--- NOTE | 2019-09-27 20:43 | EKG ---
[facility] [address] [facility] [place] [address] Signed Normal sinus rhythm Normal ECG When compared with ECG of 01-MAR-2017 11:11, No significant change was found Confirmed by LONNIE MOORE MD ([id number]) on 09/27/2019 8:43:35 PM Electronically Signed By: LONNIE MOORE MD 09/27/192042 PATIENT NAME: LONDON BERRY Electrocardiogram DATE OF : 72 PHYSICIAN: LONNIE MOORE MD REPORT #: [id number] REPORT IS CONFIDENTIAL AND NOT TO BE RELEASED WITHOUT AUTHORIZATION
--- NOTE | 2019-09-27 21:40 | NUR ---
EVENING ASSESSMENT COMPLETE. SCHEDULED MEDS ADMINISTERED. NO SWALLOWING ISSUES OR ASPIRATION NOTED. PT DENIES PAIN OR NAUSEA. A&O X 3. SLOW TO RESPOND AND AT TIMES APPEARS TO HAVE DIFFICULTY FINDING THE RIGHT WORDS. WARM BLANKET PROVIDED. CALL LIGHT IN REACH. BED ALARM FOR SAFETY.
--- NOTE | 2019-09-28 00:05 | NUR ---
PATIENT USED THE CALL LIGHT. PATIENT STATED "I POOPED". THIS WOOL SORTER AND FLOAT CN MARY CLEANED/WIPED PATIENT. CHANGED GOWN AND ATTENDS. PATIENT HAD EXTRAlarge LOOSE BROWN BOWEL MOVEMENT. CALL LIGHT IN REACH. BED ALARM ON FOR SAFETY. FLOAT WOOL SORTER MADE HOT TEA PER PATIENT'S REQUEST.
--- NOTE | 2019-09-28 01:54 | NUR ---
PT RESTING IN BED WITH EYES CLOSED, NAD.
--- NOTE | 2019-09-28 03:15 | NUR ---
VS AND I&O COMPLETE. PT UP TO BSC WITH 2PA AND FWW TO HAVE EXTRA LARGE LIQUID BM AND VOID. ROSELIA CARE DONE BY STAFF. NEW ATTENDS PLACED. BACK TO BED, GATO WELL. PT ABLE TO FOLLOW SIMPLE DIRECTIONS. ORIENTED TO SELF AND PLACE. JELLO PROVIDED PER REQUEST. BED ALARM ON FOR SAFETY.
--- NOTE | 2019-09-28 03:31 | NUR ---
PRIMARY RN AND THIS ASIAN STUDIES PROFESSOR HELPED PATIENT USE THE BEDSIDE COMMODE. PATIENT VOIDED AND HAD WATERY BOWEL MOVEMENT. PATIENT IS BACK IN BED. BED ALARM ON FOR SAFETY. PATIENT ATE JELLO X2.
--- NOTE | 2019-09-28 06:02 | NUR ---
PT RESTING IN BED WITH EYES CLOSED, NAD. FRESH WATER PROVIDED. BED ALARM ON FOR SAFETY. CALL LIGHT IN REACH.
--- NOTE | 2019-09-28 07:28 | NUR ---
Report recieved from JAIME Meneses. Patient lying on left side, eyes closed at this time. No signs of pain or discomfort, allowed to rest. Call light in reach, bed rails up X2.
--- NOTE | 2019-09-28 08:52 | NUR ---
Assessment completed. Denies pain or discomfort. Takes medications without difficulty. IV site remains WNL. Call light in reach, bed rails up X2.
--- NOTE | 2019-09-28 09:51 | NUR ---
PATIENT IN BED WATCHING TV. PATIENT SAID BEDBATH MAYBE LATER TODAY. CALL LIGHT IN REACH. NO FURTHER NEEDS AT THIS TIME.
--- NOTE | 2019-09-28 10:08 | NUR ---
LAB INFORMS THIS NURSE PATIENT HAS BLOOD CULTURES ORDERED FROM ED. PATIENT DIAGNOSIS FOR HEPATIC ENCEPHALOPATHY. DR. MOORE NOTIFIED ORDER FROM ED, STATES CULTURES NOT NEEDED DUE TO DIAGNOSIS. ORDER DC'D.
--- NOTE | 2019-09-28 11:00 | NUR ---
Resting with eyes closed in bed at this time. No signs of pain or discomfort. Allowed to rest. Call light in reach, bed rails up X2, friend in room at bedside.
--- NOTE | 2019-09-28 13:52 | NUR ---
PATIENT BACK TO BED FROM BATHROOM, 1PA. VISITOR IN ROOM. CALL LIGHT IN REACH. NO FURTHER NEEDS AT THIS TIME.
--- NOTE | 2019-09-28 14:14 | NUR ---
ASSESSMENT COMPLETED. ORIENTED AT THIS TIME. NO CONFUSION NOTED. FRIEND AT BEDSIDE.
--- NOTE | 2019-09-28 15:26 | NUR ---
PATIENT UP TO BATHROOM FOR SHOWER, 1PA FWW. PATIENT ASSISTED WITH SHOWER. SHAMPOO, SKIN CARE, ROSELIA CARE DONE. NEW ATTENDS AND GOEN PROVIDED. BRAIDED PATIENT HAIR. PATIENT NOW BACK TO BED, 1PA FWW. CALL LIGHT IN REACH. NO FURTHER NEEDS AT THIS TIME.
--- NOTE | 2019-09-28 17:19 | NUR ---
SITTING IN RECLINER, EATING SUPPER AT THIS TIME. CONTINUES WITH CLEAR LIQUID DIET. IMPROVED MENTATION NOTED AT THIS TIME. FRIEND AT SIDE. DENIES NEEDS AT THIS TIME.
--- NOTE | 2019-09-28 18:07 | NUR ---
PATIENT IN CHAIR WATCHING TV. B\P HIGH, RN NOTIFIED. CALL LIGHT IN REACH. NO FURTHER NEEDS AT THIS TIME.
--- NOTE | 2019-09-28 19:36 | NUR ---
REPORT RECEIVED FROM DAY SHIFT RN. PT LYING IN BED, ALERT AND WATCHING TV. DENIES NEEDS. WHITE BOARD UPDATED. CALL LIGHT IN REACH.
--- NOTE | 2019-09-28 21:40 | NUR ---
EVENING ASSESSMENT COMPLETE. SCHEDULED MEDS ADMINISTERED. NO SWALLOWING ISSUES OR ASPIRATION NOTED. BROTH AND JELLO PROVIDED. PT A&O X 4. SLOW TO RESPOND. DENIES PAIN OR NAUSEA. BED ALARM FOR SAFETY. CALL LIGHT IN REACH.
--- NOTE | 2019-09-28 22:19 | NUR ---
CALL LIGHT ANSWERED. PT UP TO BR WITH SBA AND FWW. GAIT STEADY. VOID 250 ML CL YELLOW URINE, ABLE TO DO OWN ROSELIA CARE. BACK TO BED, GATO WELL. BED ALARM ON FOR SAFETY. CALL LIGHT IN REACH.
--- NOTE | 2019-09-29 00:13 | NUR ---
PT REPORTS SHE IS HAVING TROUBLE SLEEPING. WARM BLANKET PROVIDED. LIGHTS DIMMED. DOOR CLOSED. FACE MASK OFFERED. BED ALARM FOR SAFETY.
--- NOTE | 2019-09-29 02:34 | NUR ---
PT RESTING IN BED WITH EYES CLOSED, NAD.
--- NOTE | 2019-09-29 05:59 | NUR ---
PT SLEPT WELL. A&O X 4 THIS AM. USES CALL LIGHT. BED ALARM FOR SAFETY. SBA WITH FWW. GATO CL LIQ DIET. NO SWALLOWING/ASPIRATION ISSUES NOTED. DENIES PAIN OR NAUSEA.
--- NOTE | 2019-09-29 07:33 | NUR ---
PT RESTING SOUNDLY AT TIME OF BEDSIDE REPORT. APPEARS COMFORTABLE BREATHING EVEN AND UNLABORED. CALL LIGHT IN REACH, BED ALARM IS SET
--- NOTE | 2019-09-29 09:25 | NUR ---
PT UP TO CHAIR CONSUMES FULL TRAY OF CLEAR LILQUIDS WELL TOLERATED. REMAINS UP AT THIS TIME QUIET AND COOPERATIVE DENIES DISCOMFORTS OR NEEDS, CALL LIGHT IN REACH, CURTAIN TO RN STATION OPEN
--- NOTE | 2019-09-29 09:44 | NUR ---
PATIENT IN CHAIR, OT IN ROOM. WARM WASHCLOTH GIVEN. LINENS CHANGED. CALL LIGHT IN REACH. NO FURTHER NEEDS AT THIS TIME.
--- NOTE | 2019-09-29 09:55 | NUR ---
PATIENT WITH STAFF IN BATHROOM. WILL RETURN LATER.
--- NOTE | 2019-09-29 10:35 | NUR ---
dr zurita in to see pt dc orders written. assisted to dress and toilet family here to take her home
--- NOTE | 2019-09-29 11:05 | NUR ---
IV DC'D CATH INTACT. DC GIVEN VERBALLY AND IN WRITING TO PT WELL CAREGIVER. UNDERSTANDING VERBALIZED. PERSONAL MEDICATIONS RETURNED FROM THE SAFE WELL PERSONAL ITEMS FROM THE ROOM. ALL QUESTIONS ANSWERED.
== END 2019-09-29 10:45 | disposition home or self-care (01) | DRG 443 ==
LOC: ED 13:00 → MS 16:06
PROVIDERS: ADMIT Internal Medicine
DX: K72.00 Acute and subacute hepatic failure without coma (principal); K72.10 Chronic hepatic failure without coma; I10 Essential (primary) hypertension; K70.31 Alcoholic cirrhosis of liver with ascites; F10.20 Alcohol dependence, uncomplicated; Z20.828 Contact with and (suspected) exposure to other viral communicable diseases; Z87.891 Personal history of nicotine dependence; Z79.899 Other long term (current) drug therapy; Z79.2 Long term (current) use of antibiotics; Z88.6 Allergy status to analgesic agent; Z88.1 Allergy status to other antibiotic agents; Z88.2 Allergy status to sulfonamides; Z88.8 Allergy status to other drugs, medicaments and biological substances
CPT/HCPCS: 36415; 51701; 71045; 80053; 81001; 82140; 83605; 83735; 84484; 84703; 85025; 93005; 93010; 97161; 97165; 99285-25; C9803; G0480; J3475; U0002

== ENCOUNTER 2020-01-12 07:52 | Inpatient (IN) | payer OTHER ==
[~2020-01-12] VITALS: Ht 170.2 cm; Wt 56.1 kg
--- OUTSIDE RECORDS SUMMARY | ~2020-01-12 | XMS | Encounter Summary ---
Demographics + + + | Address | [address] | | | [place] [address] | + + + | Home Phone | | + + + | Preferred Language | Unknown | + + + | Marital Status | Single | + + + | Scientologist Affiliation | [id number] | + + + [...] + | Joanne Pham | ECON | [address] | | | | | [place] | | | | | [address] | | + + + + + | Viktor Son | EDDIE | Unknown | | + + + + + | Edd Gill | ECON | Unknown | | + + + + + | Conner Barber | ECON | Unknown | | + + + + + Care Team Providers + +------+ + | Care Caustic Pump Operator Name | Role | Phone | + +------+ + | Trixie Rose PA-C | PCP | | + +------+ + Encounter Details +--------+ + + + + | Date | Type | Department | Care Team | Description | +--------+ + + + + | 09/16/ | Hospital | [facility] | Mitchell Stewart | Alcoholic cirrhosis | | 2019 | Encounter | [facility] | MD Conor [address] | of liver with | | | | [address] [place], [place] | ascites (HCC); | | | | [address] | [id number] | Ascites due to | | | | [place] | | alcoholic cirrhosis | | | | [address] | | (HCC); Portal | | | | [phone] | | hypertension (HCC); | | | [...] | | | | | | | VITAMINS/SPONSORSHIP COORDINATOR) TABS | | | | | [...]
--- OUTSIDE RECORDS SUMMARY | ~2020-01-12 | XMS | Encounter Summary ---
Demographics + + + | Address | [address] | | | [place] [address] | + + + | Home Phone | | + + + | Preferred Language | Unknown | + + + | Marital Status | Single | + + + | Christianity Affiliation | 1041 | + + + | Race | or | + + + | Ethnic Group | Not or | + + + Author + + + | Author | [facility] | | | and [place] | + + + | Organization | [facility] | | | and [place] | + + + | Address | Unknown | + + + | Phone | Unavailable | + + + Support + + + + + | Name | Relationship | Address | Phone | + + + + + | Joanne Pham | ECON | [address] | | | | | [place] | | | | | [address] | | + + + + + | Viktor Son | EDDIE | Unknown | | + + + + + | Edd Gill | ECON | Unknown | | + + + + + | Conner Barber | ECON | Unknown | | + + + + + Care Team Providers + +------+ + | Care Spanish Teacher Name | Role | Phone | + +------+ + PCP | Unavailable | + +------+ + Encounter Details +--------+ + + + + | Date | Type | Department | Care Team | Description | +--------+ + + + + | 02/06/ | Hospital | [facility] | [place], | Fever; Seizure | | 2013 - | Encounter | [facility] [address] | [address] | ([facility]); Alcohol | | | | [address] | abuse; UTI (lower | | 02/13/ | | [place], [place] | [place] [address] | urinary tract | | 2013 | | [address] | [phone] | infection); Hepatic | | | | [phone] | | encephalopathy | | | | | | (HCC); Post-ictal | | | | | | state (HCC) | +--------+ + + + + Social History + +-------+ +--------+------+ | Tobacco Use | Types | Packs/Day | Years | Date | | | | | Used | | + +-------+ +--------+------+ | Never Assessed | | | | | + +-------+ +--------+------+ + + + | Sex Assigned at | Date Recorded | | | | + + + | Not on file | | + + + documented as of this encounter Discharge Summaries Micki Redding MD - 02/13/2014 9:55 AM PST Discharge Summaries by Micki Redding MD at 02/13/14 0955 Author: Micki Redding MD Service: (none) Author Type: Physician Filed: 02/13/14 1340 Date of Service: 02/13/14 0955 Status: Signed Vice President & General Manager [employer]: Micki Redding MD (Physician) Related Notes: Original Note by Micki Redding MD (Physician) filed at 02/13/14 1002 [facility] Service: Hospitalist Physician Discharge Summary Patient ID: Shaila Son 1970 43 y.o. Admit date: 02/06/2014 Discharge date: 02/13/2014 Admitting Physician: Deonte Morales MD Discharge Physician: Micki Redding MD Consultants: Treatment Team: Admitting Provider: Deonte Morales MD Primary Discharge Diagnoses: Alcohol withdrawal , resolved Secondary Discharge Diagnoses: Thrombocytopenia, unspecified Anemia Hepatic encephalopathy, resolved Seizure disorder, secondary Alcohol dependence Urinary tract infection, site not specified (UTI) Malnutrition of moderate degree Hypomagnesemia HPI and Hospital Course: A 43-year-old female with history of alcohol abuse and history of withdrawal seizures, cirr hosis, hypertension, presented with seizures. The patient was admitted with possible alcohol withdrawal seizures. She received IV Ativan and since admission has not had any seizures. S he also had a temperature of 102.2. The patient was started on IV Zosyn, also started on CIW A protocol. HOSPITAL COURSE The patient admitted with alcohol withdrawal seizures, of which she did not have any recurr ence during the hospitalization. She also had a fever. Urine showed E. coli. She was initial ly treated with Zosyn and then switched over to Rocephin and then transitioned to Omnicef. T here was also a questionable pneumonia on her chest x-ray and she was treated with Zithromax . She remained afebrile. Blood cultures have remained negative. The patient also was noted t o have ascites, but did not have any abdominal pain and did not undergo paracentesis. She greene d significant alcohol withdrawal requiring IV benzodiazepines, which has resolved at the guido e of discharge. She had altered mentation at the time of admission, which has also resolved, and she was continued on lactulose. The patient has anemia, with some mild iron-deficiency anemia. Her hemoglobin has remained relatively stable. She will follow up outpatient for thi s. The patient also had thrombocytopenia, which is resolving at the time of discharge. The p atient had no evidence of any hematemesis or any evidence of active bleeding. The patient al so had significant hypomagnesemia, which is being replaced. She will go home on oral magnesi um replacement. The patient will complete 7 days of antibiotics today. The plan has been explained in detai l to the patient. All questions have been answered. All data was reviewed. The patient also was hypertensive and was started on Norvasc. Prognosis is guarded. Advised the patient stron gly to quit alcohol use. Past Medical History: Past Medical History Diagnosis Date Hemorrhage of gastrointestinal tract, unspecified Liver disease Hypertension Anemia Past Surgical History Procedure Laterality Date Esophagogastroduodenoscopy 07/30/2011 Procedure: ESOPHAGOGASTRODUODENOSCOPY; Surgeon: Mitchell Stewart IV, MD; Location: [facility]; Service: Gastroenterology; Laterality: N/A; anesthesia assist if available since may be difficult to sedate Hx of tracheostomy Discharged Condition: Stable for discharge as stated above. Significant Diagnostic Studies: X-ray Chest Frontal And Lateral 02/07/2014 FINDINGS/ IMPRESSION: Low lung volumes. Heart size and mediastinal contours ar e unchanged. No pneumothorax, no pleural effusion. Left basilar atelectasis/aspiration. N o acute osseous abnormality. Ct Head Without Contrast 02/07/2014 No acute intracranial process. RADIA Electronically signed by Rosalinda cabrera MD on Feb 07 2014 3:55AM Referring Provider Line: [phone] ID: [id number] X-ray Chest 1 View 02/09/2014 1. Persistent chronic bronchitis. 2. Superimposed acute interstitial process cannot be excluded. 3. Borderline cardiac enlargement, accentuated due to low lung volumes. Echo Cardiac Adult Complete 02/10/2014 1. Sinus rhythm. 2. This was a technically adequate study. 3. Overall left vent ricular systolic function is normal with, an EF between 60 - 65 %. 4. Left Ventricle ejectio n fraction by m-mode measures 64%. 5. The left ventricle cavity size is normal. 6. Left vent ricular wall thickness is normal. 7. No regional wall motion abnormalities. 8. The diastolic filling pattern is normal for the age of the patient. 9. The right ventricle is mildly enla rged measuring between 3.4 - 3.7 cm. 10. The right ventricular systolic function is normal. 11. The left atrium is moderately dilated. 12. , and the LA measures 4.7cm. 13. The right at rial size is normal. 14. , and the RA measures 4.8cm. 15. The aortic valve is trileaflet and appears structurally normal. 16. There is no evidence of aortic regurgitation. 17. The mitr al valve is normal. 18. Baqz-ma-keswyhuy mitral regurgitation is present. 19. , the MR was e valuated quantitatively, by PISA and/or regurgitant fraction method. 20. Mild mitral annular calcification present. 21. The tricuspid valve appears structurally normal. 22. Moderate tr icuspid regurgitation present. 23. There is mild pulmonary hypertension. 24. The right ventr icular systolic pressure (pulmonary artery systolic pressure), as measured by Doppler, is 27 + 10 = 37mmHg. 25. The pulmonic valve was not well visualized. 26. Trace pulmonic regurgita tion 27. There is no pericardial effusion. 28. No pleural effusion seen. 29. The IVC was no t well visualized. 30. No mass visualized Discharge Vitals: Filed Vitals: 02/12/14 2000 02/12/14 2314 02/13/14 0318 02/13/14 0827 BP: 142/82 179/97 136/76 140/98 Pulse: 84 90 96 92 Temp: 98.3 F (36.8 C) 99.1 F (37.3 C) 98.5 F (36.9 C) TempSrc: Oral Oral Oral Resp: 16 16 17 Height: Weight: SpO2: 100% 97% 100% Discharge Exam: General: Well nourished. Psych: Alert and oriented x 3. Calm, cooperative. Cardiovascular: Regular rate and rhythm, no murmurs, no thrills. Normal PMI. Respiratory: Clear to auscultation, no wheezing or crackles, breathing non labored. Gastrointestinal: Soft, non-tender, positive bowel sounds. No HSM.Abdomen distention prese nt, no guarding or rigidity no rebound Musculoskeletal: No edema in bilateral lower extremities. No joint swelling. Skin: Warm and dry, no rashes. Neck: No JVD, Trachea midline. Neurological: Non focal. Motor grossly intact. LABS: Recent Labs Lab 02/13/14 0535 02/12/14 0531 02/11/14 0535 WBC 3.7* 3.2* 3.1* RBC 2.75* 2.96* 2.90* HGB 8.5* 9.3* 9.2* HCT 25.3* 27.6* 27.3* MCV 92.0 93.4 94.2 MCH 31.0 31.3 31.6 MCHC 33.6 33.5 33.5 RDW 58.2* 57.8* 56.0* PLT 101* 91* 83* MPV 8.3 8.5 8.7 DIFFTYPE AUTOMATED AUTOMATED MANUAL Recent Labs Lab 02/13/14 0535 02/12/14 0531 02/11/14 0535 NA 132* 133* 133* K 4.1 3.7 3.9 CL 105 105 107 CO2 25 25 23 BUN 9 8 6* CREATININE 0.53 0.58 0.52 PROT 5.4* 5.6* 5.4* BILITOT 0.7 0.8 0.7 ALT 13 16 15 AST 37 36 40 GLUF 95 85 85 Recent Labs Lab 02/12/14 0531 02/11/14 0535 02/10/14 0549 PHOS 4.4 5.0* 4.0 Recent Labs Lab 02/13/14 0535 02/12/14 1448 02/12/14 0531 MG 1.0* 1.8 0.9* Disposition: Home Follow up: PERNELL Luo In 3 days Medication List START taking these medications amLODIPine 5 MG tablet QTY: 30 tablet Refills: 0 Commonly known as: NORVASC Take 1 tablet by mouth daily. cefdinir 300 MG capsule QTY: 1 capsule Refills: 0 Commonly known as: OMNICEF Take 1 capsule by mouth every 12 (twelve) hours. furosemide 20 MG tablet QTY: 30 tablet Refills: 0 Commonly known as: LASIX Take 1 tablet by mouth daily. lactulose 10 GM/15ML solution QTY: 240 mL Refills: 0 Commonly known as: CHRONULAC Take 15 mLs by mouth 2 (two) times daily. magnesium oxide 400 MG tablet QTY: 14 tablet Refills: 0 Commonly known as: MAG-OX Take 1 tablet by mouth 2 (two) times daily. CONTINUE taking these medications multivitamin & minerals w iron/FA 27-0.8 MG Tabs tablet QTY: 30 each Refills: 0 Take 1 tablet by mouth daily. spironolactone 25 MG tablet QTY: 60 tablet Refills: 11 Commonly known as: ALDACTONE Take 1 tablet by mouth 2 (two) times daily. thiamine 100 MG tablet QTY: 30 tablet Refills: 11 Commonly known as: VITAMIN B-1 Take 1 tablet by mouth daily. 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 You may get the following medications from any pharmacy - amLODIPine 5 MG tablet - cefdinir 300 MG capsule - furosemide 20 MG tablet - lactulose 10 GM/15ML solution - magnesium oxide 400 MG tablet Micki Redding MD 02/13/2014 9:55 AM Discharge took 40 minutes, to include final examination, discussion of admission, and prep aration of prescriptions, instructions for ongoing care, follow up and dictation of summary. This entry has been created using [employer] Speech Recognition software and Snipi. The entry has been reviewed and there may still exist sound alike word errors. documented in th is encounter Progress Notes Conversion Transaction, Provider Unknown - 02/13/2014 3:08 PM PSTFormatting of this note m ight be different from the original. Nurse Progress Note by Flora Seaman RN at 02/13/14 1508 Author: Flora Seaman RN Service: (none) Author Type: Registered Nurse Filed: 02/13/14 1509 Date of Service: 02/13/14 1508 Status: Signed Vice President & General Manager [employer]: Flora Seaman RN (Registered Nurse) Discharge teaching done, instructions given. Pt states understanding. Medications discussed , no questions or concerns. Pt instructed to contact MD with any concerns or if signs/sympto ms re-occur that were associated with this hospitalization. Flora Seaman RN 02/13/2014 3:08 PM onver miriam Transaction, Provider Unknown - 02/13/2014 10:49 AM PST Therapy Progress Note by Efra Gotti PTA at 02/13/14 1049 Author: Efra Gotti PTA Service: (none) Author Type: Supervisor Spinning Filed: 02/13/14 1051 Date of Service: 02/13/14 1049 Status: Signed Vice President & General Manager [employer]: Efra Gotti PTA (Supervisor Spinning) 02/13/14 1049 PT Last Visit PT Received On 02/13/14 Reason for Treatment Other (comment) (seizure and etoh withdrawal) Requires PT Follow Up No Assistance Required Independent Other Comments Comments pt exiting from BR and willing to ambulate in hallway has been ambulating in orr way Cognition Overall Cognitive Status WFL Orientation Level Oriented Transfers Sit to/from Stand Modified independent Mobility Ambulation Assistance Independent Maximal Ambulation Distance (feet) 550 Total Ambulation Distance (feet) 550 Distance limited by? Therapist/staff discretion Pattern Alternating;Decreased brigitte Assistive Device None Activity Tolerance Activity Tolerance Patient tolerated treatment without report of fatigue Plan Progress Reached highest level of independence with therapy Recommendation Recommendations Return to prior living situation onver miriam Transaction, Provider Unknown - 02/12/2014 8:29 PM PST Progress Notes by Alessandro Wadr RN at 02/12/142028 Author: Alessandro Ward RN Service: (none) Author Type: Registered Nurse Filed: 02/12/142031 Date of Service: 02/12/142028 Status: Signed Vice President & General Manager [employer]: Alessandro Ward RN (Registered Nurse) Per protocol, CIWA discontinued as of 1999 Micki Walton MD - 02/12/2014 2:08 PM PSTFormatting of this note might be different from t hanny original. Progress Notes by Micki Redding MD at 02/12/141407 Author: Micki Redding MD Service: (none) Author Type: Physician Filed: 02/12/14 1542 Date of Service: 02/12/14 1408 Status: Signed Vice President & General Manager [employer]: Micki Redding MD (Physician) [facility] Service: Hospitalist Progress Note Hospital Day: LOS: 6 days SUBJECTIVE Patient Summary: 43-year-old female with history of alcohol abuse. history of withdra wal seizures, cirrhosis, hypertension, admitted with seizures and urinary tract infection. S he was started on Zosyn and Zithromax for possible pneumonia and switched over to Omnicef an d Zithromax . Patient has persistent hypomagnesemia Events Overnight: Patient feels better today. Wants to go home denies any pain Scheduled Medications amLODIPine 5 mg Oral Daily azithromycin 500 mg Oral Daily cefdinir 300 mg Oral Q12H famotidine 20 mg Oral BID Or famotidine 20 mg Intravenous BID furosemide 20 mg Oral Daily lactulose 10 g Oral BID Magnesium 250 mg Oral Daily multivitamin & minerals w iron/FA 1 tablet Oral Daily sodium chloride (PF) 10 mL Intravenous Q8H spironolactone 50 mg Oral Daily thiamine 100 mg Oral Daily Continuous Infusions PRN Medications acetaminophen, acetaminophen, diazepam, diazepam, diazepam, labetalol, LORazepam, magnesium sulfate, magnesium sulfate, magnesium sulfate, phosphorus, polyethylene glycol, potassium c hloride, potassium chloride, potassium chloride, sodium chloride 0.9 %, sodium phosphate IVP B 15 mmol, sodium phosphate IVPB 30 mmol OBJECTIVE Vital Signs: BP 155/101 | Pulse 86 | Temp(Src) 97.9 F (36.6 C) (Oral) | Resp 16 | Ht 1.702 m (5' 7.0 1") | Wt 68.947 kg (152 lb) | BMI 23.8 kg/m2 | SpO2 100% | ? Unknown Patient Vitals for the past 24 hrs: BP Temp Temp src Pulse Resp SpO2 02/12/14 1102 155/101 mmHg - - - - - 02/12/14 1100 172/88 mmHg 97.9 F (36.6 C) Oral 86 16 100 % 02/12/14 0733 159/98 mmHg 98.1 F (36.7 C) Oral 91 16 100 % 02/12/14 0355 136/83 mmHg 98.3 F (36.8 C) Oral 88 16 96 % 02/11/14 2328 160/89 mmHg 98.3 F (36.8 C) Oral 82 16 99 % 02/11/14 1922 143/85 mmHg 97.7 F (36.5 C) Oral 89 16 98 % 02/11/14 1800 - - - 92 - - 02/11/14 1700 - - - 92 - - 02/11/14 1511 130/79 mmHg 98.2 F (36.8 C) Oral 92 18 99 % 02/11/14 1500 - - - 106 - - Intake/Output Summary (Last 24 hours) at 02/12/14 1408 Last data filed at 02/12/14 0742 Gross per 24 hour Intake 1145 ml Output 1250 ml Net -105 ml Physical Exam: Constitutional: Alert and oriented to person, place, and time. HEENT: Neck supple, no JVD, non icteric sclera. Cardiovascular: Normal rate, regular rhythm, normal heart sounds with S1 and S2, Pulmonary/Chest: Effort normal and breath sounds are decreased bilaterally Abdominal: Soft. Bowel sounds are normal. Abdominal distention present, no guarding or rigi dity. No tenderness. No rebound Extremeties/Musculoskeletal: Normal range of motion.exhibits no tenderness. exhibits no ed savannah. Neurological: Alert and oriented to person, place, and time. Minimal Tremors present. both upper extremities. Skin: Skin is warm and dry. Psychiatric: appears depressed DATA Recent Labs Lab 02/12/14 0531 02/11/14 0535 02/10/14 0549 WBC 3.2* 3.1* 3.9 RBC 2.96* 2.90* 2.69* HGB 9.3* 9.2* 8.3* HCT 27.6* 27.3* 25.4* MCV 93.4 94.2 94.4 MCH 31.3 31.6 30.9 MCHC 33.5 33.5 32.7 RDW 57.8* 56.0* 57.3* PLT 91* 83* 72* MPV 8.5 8.7 8.5 DIFFTYPE AUTOMATED MANUAL MANUAL Recent Labs Lab 02/12/14 0531 02/11/14 0535 02/10/14 1745 02/10/14 0549 NA 133* 133* -- 136 K 3.7 3.9 3.6 3.2* CL 105 107 -- 107 CO2 25 23 -- 22* BUN 8 6* -- 6* CREATININE 0.58 0.52 -- 0.59 PROT 5.6* 5.4* -- 5.3* BILITOT 0.8 0.7 -- 1.0 ALT 16 15 -- 14 AST 36 40 -- 41 GLUF 85 85 -- 113* Recent Labs Lab 02/12/14 0531 02/11/14 0535 02/10/14 0549 PHOS 4.4 5.0* 4.0 Recent Labs Lab 02/12/14 0531 02/11/14 0927 02/11/14 0535 MG 0.9* 5.1* 0.9* X-ray Chest Frontal And Lateral 02/07/2014 FINDINGS/ IMPRESSION: Low lung volumes. Heart size and mediastinal contours ar e unchanged. No pneumothorax, no pleural effusion. Left basilar atelectasis/aspiration. N o acute osseous abnormality. Ct Head Without Contrast 02/07/2014 No acute intracranial process. RADIA Electronically signed by Rosalinda cabrera MD on Feb 07 2014 3:55AM Referring Provider Line: [phone] ID: [id number] X-ray Chest 1 View 02/09/2014 1. Persistent chronic bronchitis. 2. Superimposed acute interstitial process cannot be excluded. 3. Borderline cardiac enlargement, accentuated due to low lung volumes. 2-D echocardiogram 1. Sinus rhythm. 2. This was a technically adequate study. 3. Overall left ventricular syst olic function is normal with, an EF between 60 - 65 %. 4. Left Ventricle ejection fraction b y m-mode measures 64%. PROBLEM LIST Principal Problem: Alcohol withdrawal Active Problems: Thrombocytopenia, unspecified Anemia Hepatic encephalopathy Seizure disorder, secondary Alcohol dependence Urinary tract infection, site not specified (UTI) Malnutrition of moderate degree Hypomagnesemia ASSESSMENT & PLAN 1. Seizure disorder, most probably alcohol withdrawal seizure. No further episodes in the h ospital 2. Urinary tract infection secondary to Escherichia coli. Continue Omnicef. On day #6 3. Thrombocytopenia. We will monitor. Stable 4. Anemia , normocytic, normochromic. Continue oral iron 5. Possible infiltrates on chest x-ray. Continue Zithromax and start Omnicef, day #6 of ant ibiotics 6. Alcohol withdrawal. Continue CIWA protocol 7. Cirrhosis with hepatic encephalopathy. Continue lactulose, Lasix, Aldactone 8. Hypomagnesemia, will replenish, continue oral magnesium supplementation 9. DVT prophylaxis. Will use only mechanical agents 10. Fluid overload. Continue Lasix, echocardiogram results are noted 11. Hypertension. Blood pressure fair control on Norvasc. We will continue to monitor 12. Leukopenia, will monitor closely 13. Moderate protein malnutrition. Dietitian consult 14. Hyersphosphatemia. Resolved The plan has explained in detail to the patient , all questions were answered.All data was reviewed. Disposition: Possibly discharge in 24 hours Code Status: Full Code Micki Redding MD 02/12/2014 2:08 PM This entry has been created using [employer] Speech Recognition software and Snipi. The entry has been reviewed and there may still exist sound alike word errors. Mallory Gonzalez PT - 02/12/2014 9:28 AM PST Therapy Progress Note by Mallory Metz PT at 02/12/14927 Author: Mallory Metz PT Service: (none) Author Type: Physical Therapist Filed: 02/12/14 1121 Date of Service: 02/12/14927 Status: Signed Vice President & General Manager [employer]: Mallory Metz PT (Physical Therapist) 02/12/14927 PT Last Visit PT Received On 02/12/14 Reason for Treatment Other (comment) (seizure and ETOH withdrawl) Requires PT Follow Up Awaiting tx order Follow up PT Only? No PT Eval/Reassessment Date 02/12/14 Assistance Required 1 person Cutter Pl[employer] Rolls Needed No Precautions Other Precautions fall risk, seizure Plan Treatment/Interventions Bed mobility training;Balance training;Family training;Gait trainin g;Monitor vital signs;Stair training;Therapeutic exercise;Transfer training PT Frequency 5-7x/wk;Once per day Care Duration (# of days) 7 # of days Home Environment Type of Home Home one story Home Exterior Layout 1-3 steps;Rail on R ascending (1 step to enter) Home Interior Layout Lives on main level with bedroom/bathroom Bathroom Shower/Tub Tub/shower unit Bathroom Toilet Standard Bathroom Equipment Grab bars in shower/bath;Hand-held shower head;Grab bars at toilet Bathroom Accessibility Accessible via walker Home Equipment None Additional Comments one fall within the last 6 month (fell off the bed due to seizure) Recommendation Recommendations Return to prior living situation;Home with daytime assist;Home PT Equipment Recommended (TBD( FWW vs 4WW)) Recommendation Comments Pt may benefit from home health PT to improve strength, endurance, and balance after this hospital stay. Prior Function Level of [place] Independent with functional mobility;Independent with ADLs;Independe nt with IADLs Lives With (pt's brother and their children) Receives Help From Family Employment Unemployed Cognition Overall Cognitive Status WFL Orientation Level Oriented Sensation Light Touch (denies having tingling/numbness in BUE/LE) 02/12/14 0928 PT Last Visit PT Received On 02/12/14 Reason for Treatment Other (comment) (seizure and ETOH withdrawl) Requires PT Follow Up Awaiting tx order Follow up PT Only? No PT Eval/Reassessment Date 02/12/14 Assistance Required 1 person [employer]utter [employer] Rolls Needed No Precautions Other Precautions fall risk, seizure Other Comments Comments Pt admitted to the hospital due to seizure and ETOH withdrawl. Upon PT arrival, pt in bathroom with CARBONIZER TESTER. pt Handoff from CARBONIZER TESTER. Pt agreeable to PT assessment. Pt is alert and o riented, but required extra time for answering questions. SBA for bed mobility and STS trans coco. Had pt trial out SPC, but pt demonstrated moderate unsteadiness when ambulating with SP C. Required Leo for ambulation with SPC. Pt then trial out FWW and pt appeared to be safe. She was much more steady when ambulating with FWW. She required SBA with FWW. Tinetti (MAI) : , moderate fall risk. [place] if the FWW will work on the ground outside of home. Will need to trial 4ww with the pt at the next visit. At the end of the session, pt seated in a chair with call light within reach. RN aw are. Cognition Overall Cognitive Status WFL Orientation Level Oriented Bed Mobility Supine to Sit Standby assist Sit to Supine Standby assist Transfers Sit to/from Stand Standby assist Mobility Weight Bearing Status WBAT RLE;WBAT LLE Ambulation Assistance Minimal assist;Standby assist Maximal Ambulation Distance (feet) 20,120 Total Ambulation Distance (feet) 140 Distance limited by? Patient's ability Pattern Alternating;Decreased brigitte;Right swing foot doesn't pass stance foot;Left swing foot doesn't pass stance foot Assistive Device Walker front wheeled;Cane single point Balance Balance Yes (Tinetti MAI: , moderate fall risk) Static Sitting Balance Static Sitting-Balance Support No upper extremity support;Feet supported Static Sitting-Level of Assistance Supervision Static Sitting-Comment/Duration Able to sit at EOB without LOB Activity Tolerance Activity Tolerance Patient limited by fatigue Nurse Made Aware RN aware Plan Treatment/Interventions Bed mobility training;Balance training;Family training;Gait trainin g;Monitor vital signs;Stair training;Therapeutic exercise;Transfer training PT Frequency 5-7x/wk;Once per day Care Duration (# of days) 7 # of days Recommendation Recommendations Return to prior living situation;Home with daytime assist;Home PT Equipment Recommended (TBD( FWW vs 4WW)) Recommendation Comments Pt may benefit from home health PT to improve strength, endurance, and balance after this hospital stay. 02/12/14 0928 Tinetti Assessment Tool: Balance Tasks Sitting balance 1 Arises 1 Attempts to arise 1 Immediate standing balance 2 Standing balance 1 Nudged 1 Eyes closed 0 Turning 360 degrees - steps 1 Turning 360 degrees - steadiness 1 Sitting down 2 Balance score: 11 Tinetti Assessment Tool: Gait Tasks Initiation of gait 1 Step length & height - right swing foot 0 Step length & height - right foot 1 Step length & height - left swing foot 0 Step length & height - left foot 1 Step symmetry 1 Step continuity 1 Path 1 Trunk 1 Walking stance 1 Gait score: 8 Tinetti Assessment Tool: Total Score Total score (balance + gait): 19 Comment , moderate fall risk Barriers to discharge Cognitive deficits impacting functional independence Physical deficits impacting functional independence Self-care deficits impacting functional independence Equipment needs FWW vs four wheeled walker (TBD) Home design (stairs, doorways, clutter, etc.): 1 step to enter home onversion Transacti on, Provider Unknown - 02/12/2014 3:23 AM PSTFormatting of this note might be different fro m the original. Progress Notes by Alessandro Ward RN at 02/12/14322 Author: Alessandro Ward RN Service: (none) Author Type: Registered Nurse Filed: 02/12/14323 Date of Service: 02/12/14322 Status: Signed Vice President & General Manager [employer]: Alessandro Ward RN (Registered Nurse) Left message with PICC RN about clotted lines & requested that someone come to assess this am Dimitri Head MS CCC-SURVEY PROJECT MANAGER - 02/11/2014 5:18 PM PST Therapy Progress Note by Anette Hernandez MS CCC-SURVEY PROJECT MANAGER at 02/11/141717 Author: Anette Hernandez MS CCC-SURVEY PROJECT MANAGER Service: (none) Author Type: Speech and Language Pathol ogist Filed: 02/11/141717 Date of Service: 02/11/141717 Status: Signed Vice President & General Manager [employer]: Anette Hernandez MS CCC-SURVEY PROJECT MANAGER (Speech and Language Pathologist) 02/11/141714 Swallowing Assessment Eval Swallowing Treatment Yes Thin Presentation Self Fed;Cup Oral Phase Thin WFL Pharyngeal Phase No overt signs or symptoms of aspiration Regular Presentation Self Fed Oral Phase WFL Pharyngeal Phase No overt signs or symptoms of aspiration Recommendations Liquids Consistency Recommendations Thin Diet Consistency Recommendation Regular Recommendations Set up with meals;Check on patients frequently throught out meals Risk for Aspiration Mild Compensatory Swallowing Strategies Upright as possible for all oral intake;Small bites/sips ;Eat/feed slowly Recommended Form of Meds Meds with recommended liquid Summary Pt con'ts to appear weak overall as slow UE movement is observed w/self feeding and pt's voice is very soft. Pt is able to tolerate regular textures w/thin liquids w/o overt s /sx aspiration. Pt no longer requires acute SURVEY PROJECT MANAGER services. SURVEY PROJECT MANAGER to d/c, pleas re-order if pt s tatus changes. Staff Notified RN Plan of Care Treatment Plan No futher therapy recommended;Discharge from at this time Dysphagia Goals Pt will have safe/efficient oral intake Thin liquids;Goal met ANETTE HERNANDEZ MS CCC-SURVEY PROJECT MANAGER 02/11/2014 onversion Giraldo saction, Provider Unknown - 02/11/2014 4:50 PM PSTFormatting of this note might be differen t from the original. Case Management by HANNAH Brian at 02/11/14 1650 Author: HANNAH Brian Service: (none) Author Type: Belt Sewer Filed: 02/11/141701 Date of Service: 02/11/141649 Status: Signed Vice President & General Manager [employer]: HANNAH Brian (Belt Sewer) 02/11/14 1600 Discharge Planning Evaluation Admitting Diagnosis Seizure, ETOH withdrawl Anticipated Disposition Facility Type Home GAS BURNER OPERATOR met with Pt regarding discharge planning, states she is planning to return to prior morgan ing environment where she lives in a home owned by her aunt Joanne Pham. Pt states home is occupied by her uncle, brother and two other women, states there is recreational drinkin g in the home. GAS BURNER OPERATOR asked Pt about brusing on legs/arms, denies how they go there, was guarded about her en vironment. GAS BURNER OPERATOR encouraged to stay with other family members for safety planning. Pt states s he feels safe with boyfriend (Edd Gill) encouraged her to stay with boyfriend for safety . Pt has been attended by Pt boyfriend (Edd Gill) who resides in a RV on the Pt aunt em samson, who states Pt can stay with. Pt is seen by Lolita Lamas, Alcohol and Drug Counselor at [facility], states Pt has a standing appointment at 10am every . Lolita states she has assisted Pt with ho using resources and states Pt is on a waiting list. Lolita states Pt has been history of bein g homeless, being destitute and living in alleys in the streets in [place], [place], before being taken care by Pt aunt. Lolita Lamas states she has tried to place Pt in inpatient treatment, states this is difficu lt due to Pt being end stage liver disease. [facility] - [phone] ([phone]) [address] / [address] / [place] [address] / Pt does not want to consider placement in a [facility] Facility. DCP: Home ARUN CHAVEZ, Junior Electrical Engineer [phone] cell Sarah Rangel, Provider Unknown - 02/11/2014 1:45 PM PST Therapy Progress Note by Fabiana Ortiz PT at 02/11/14 1345 Author: Fabiana Ortiz PT Service: (none) Author Type: Physical Therapist Filed: 02/11/14 1352 Date of Service: 02/11/14 1345 Status: Signed Vice President & General Manager [employer]: Fabiana Ortiz PT (Physical Therapist) 02/11/14 1345 PT Last Visit PT Received On 02/11/14 Requires PT Follow Up Refused Other Comments Comments Attempted to see the patient for a third time today and upon arrival pt sleeping, pts SO in room and stated that the patient just fell asleep, attempted to arouse pt for ther apy and the pt refusing to open her eyes and participate stating she was to tired, educated the patient on importance of therapy and pt still refusing. Will attempt to eval pt tomorrow . Sarah Rangel, Provider Unknown - 02/11/2014 10:45 AM PST Therapy Progress Note by Fabiana Ortiz PT at 02/11/14 1045 Author: Fabiana Otriz PT Service: (none) Author Type: Physical Therapist Filed: 02/11/14 1052 Date of Service: 02/11/14 1045 Status: Signed Vice President & General Manager [employer]: Fabiana Ortiz PT (Physical Therapist) 02/11/14 1045 PT Last Visit PT Received On 02/11/14 Requires PT Follow Up Unavailable Other Comments Comments Attempted to see pt 2x this AM, she was in with the CARBONIZER TESTER getting cleaned up and CARBONIZER TESTER asked PT to come back in 15 min, then manager social work in with pt upon second arrival and aske d pt to come back at a later time. Will attempt to see pt as census allows onver miriam Transaction, Provider Unknown - 02/11/2014 10:09 AM PST Case Management by HANNAH Brian at 02/11/14 1009 Author: HANNAH Brian Service: (none) Author Type: Belt Sewer Filed: 02/11/14 1010 Date of Service: 02/11/14 1009 Status: Signed Vice President & General Manager [employer]: HANNAH Brian (Belt Sewer) 02/11/14 1000 Discharge Planning Evaluation Admitting Diagnosis Seizure, ETOH withdrawl Anticipated Disposition Facility Type Home GAS BURNER OPERATOR came by room to assess Pt for discharge planning was in bathroom, will continue to foll ow for discharge needs. ARUN CHAVEZ, Junior Electrical Engineer [phone] cell onver miriam Transaction, Provider Unknown - 02/11/2014 8:50 AM PST Progress Notes by Savannah Clarke RN at 02/11/14 0850 Author: Savannah Clarke RN Service: (none) Author Type: Registered Nurse Filed: 02/11/14 0855 Date of Service: 02/11/14 0850 Status: Signed Vice President & General Manager [employer]: Savannah Clarke RN (Registered Nurse) Called by nursing to assess picc line 2 days in a row. Caps changed, dressing changed. Able to get all 3 lumens flushed with good blood return from 2 lumens. Tavarez lumen remains sluggi sh. picc positional with pt turning head. Micki Walton MD - 02/11/2014 7:46 AM PSTFormatting of this note might be different from t hanny original. Progress Notes by Micki Redding MD at 02/11/14 0716 Author: Micki Redding MD Service: (none) Author Type: Physician Filed: 02/11/14 0754 Date of Service: 02/11/1446 Status: Signed Vice President & General Manager [employer]: Mikci Redding MD (Physician) [facility] Service: Hospitalist Progress Note Hospital Day: LOS: 5 days SUBJECTIVE Patient Summary: 43-year-old female with history of alcohol abuse. history of withdra wal seizures, cirrhosis, hypertension, admitted with seizures and urinary tract infection. S he was started on Zosyn and Zithromax for possible pneumonia and switched over to Omnicef an d Zithromax . Patient is on the [facility] protocol follow-up, withdrawal Events Overnight: Patient states that she still feels weak. Denies any complaints of pain Scheduled Medications amLODIPine 5 mg Oral Daily azithromycin 500 mg Oral Daily cefdinir 300 mg Oral Q12H famotidine 20 mg Oral BID Or famotidine 20 mg Intravenous BID furosemide 20 mg Oral Daily lactulose 10 g Oral BID Magnesium 250 mg Oral Daily multivitamin & minerals w iron/FA 1 tablet Oral Daily sodium chloride (PF) 10 mL Intravenous Q8H sodium chloride 0.9 % 10 mL Intravenous Q12H TEMI spironolactone 50 mg Oral Daily thiamine 100 mg Oral Daily Continuous Infusions PRN Medications acetaminophen, acetaminophen, diazepam, diazepam, diazepam, labetalol, LORazepam, magnesium sulfate, magnesium sulfate, magnesium sulfate, phosphorus, polyethylene glycol, potassium c hloride, potassium chloride, potassium chloride, sodium chloride 0.9 %, sodium phosphate IVP B 15 mmol, sodium phosphate IVPB 30 mmol OBJECTIVE Vital Signs: BP 131/74 | Pulse 93 | Temp(Src) 98.7 F (37.1 C) (Axillary) | Resp 18 | Ht 1.702 m (5' 7.01") | Wt 68.947 kg (152 lb) | BMI 23.8 kg/m2 | SpO2 95% | ? Unknown Patient Vitals for the past 24 hrs: BP Temp Temp src Pulse Resp SpO2 Height Weight 02/11/14 0301 131/74 mmHg 98.7 F (37.1 C) Axillary 93 18 95 % - - 02/10/14 2300 169/87 mmHg 98.7 F (37.1 C) Oral 94 20 98 % - - 02/10/14 1918 157/90 mmHg 98.2 F (36.8 C) Oral 85 20 98 % - - 02/10/14 1800 151/92 mmHg - - 89 - - - - 02/10/14 1748 158/98 mmHg - - - - - - - 02/10/14 1700 161/90 mmHg - - 85 - - - - 02/10/14 1600 187/85 mmHg 98.1 F (36.7 C) Oral 82 18 99 % - - 02/10/14 1500 159/99 mmHg - - 83 - - - - 02/10/14 1400 151/90 mmHg - - 82 - - - - 02/10/14 1300 174/108 mmHg - - 83 - - 1.702 m (5' 7.01") 68.947 kg (152 lb) 02/10/14 1200 167/99 mmHg 97.4 F (36.3 C) Oral 82 16 96 % - - 02/10/14 1100 152/91 mmHg - - 85 - - - - 02/10/14 1000 134/84 mmHg - - 90 - - - - 02/10/14 0900 137/91 mmHg - - 99 - - - - 02/10/14 0834 - - - - 18 96 % - - 02/10/14 0800 155/85 mmHg 98.5 F (36.9 C) Oral 89 - - - - Intake/Output Summary (Last 24 hours) at 02/11/14 0747 Last data filed at 02/11/14 0500 Gross per 24 hour Intake 2904 ml Output 3000 ml Net -96 ml Physical Exam: Constitutional: Alert and oriented to person, place, and time. HEENT: Neck supple, no JVD, non icteric sclera. Cardiovascular: Normal rate, regular rhythm, normal heart sounds with S1 and S2, Pulmonary/Chest: Effort normal and breath sounds are decreased bilaterally Abdominal: Soft. Bowel sounds are normal. Abdominal distention present, no guarding or rigi dity. No tenderness. No rebound Extremeties/Musculoskeletal: Normal range of motion.exhibits no tenderness. exhibits no ed savannah. Neurological: Alert and oriented to person, place, and time. Tremors present. both upper e xtremities. Skin: Skin is warm and dry. Psychiatric: appears depressed DATA Recent Labs Lab 02/11/14 0535 02/10/14 0549 02/09/14 0518 WBC 3.1* 3.9 6.0 RBC 2.90* 2.69* 3.04* HGB 9.2* 8.3* 9.3* HCT 27.3* 25.4* 27.9* MCV 94.2 94.4 91.8 MCH 31.6 30.9 30.5 MCHC 33.5 32.7 33.3 RDW 56.0* 57.3* 55.1* PLT 83* 72* 70* MPV 8.7 8.5 8.5 DIFFTYPE MANUAL MANUAL MANUAL Recent Labs Lab 02/11/14 0535 02/10/14 1745 02/10/14 0549 02/09/14 0518 NA 133* -- 136 134* K 3.9 3.6 3.2* 3.4* CL 107 -- 107 105 CO2 23 -- 22* 22* BUN 6* -- 6* 5* CREATININE 0.52 -- 0.59 0.57 PROT 5.4* -- 5.3* 5.6* BILITOT 0.7 -- 1.0 1.3 ALT 15 -- 14 19 AST 40 -- 41 62* GLUF 85 -- 113* 95 Recent Labs Lab 02/11/1435 02/10/14 0549 02/09/14 0518 PHOS 5.0* 4.0 4.9* Recent Labs Lab 02/11/1453402/10/14 1745 02/10/14 0549 MG 0.9* 1.1* 1.1* X-ray Chest Frontal And Lateral 02/07/2014 FINDINGS/ IMPRESSION: Low lung volumes. Heart size and mediastinal contours ar e unchanged. No pneumothorax, no pleural effusion. Left basilar atelectasis/aspiration. N o acute osseous abnormality. Ct Head Without Contrast 02/07/2014 No acute intracranial process. RADIA Electronically signed by Rosalinda cabrera MD on Feb 07 2014 3:55AM Referring Provider Line: [phone] ID: [id number] X-ray Chest 1 View 02/09/2014 1. Persistent chronic bronchitis. 2. Superimposed acute interstitial process cannot be excluded. 3. Borderline cardiac enlargement, accentuated due to low lung volumes. 2-D echocardiogram 1. Sinus rhythm. 2. This was a technically adequate study. 3. Overall left ventricular syst olic function is normal with, an EF between 60 - 65 %. 4. Left Ventricle ejection fraction b y m-mode measures 64%. PROBLEM LIST Principal Problem: Alcohol withdrawal Active Problems: Thrombocytopenia, unspecified Anemia Hepatic encephalopathy Seizure disorder, secondary Alcohol dependence Urinary tract infection, site not specified (UTI) Malnutrition of moderate degree Hypomagnesemia ASSESSMENT & PLAN 1. Seizure disorder, most probably alcohol withdrawal seizure. No further episodes in the h ospital 2. Urinary tract infection secondary to Escherichia coli. We will stop Rocephin as patient does not have IV access. Start Omnicef, day #5 of antibiotics Blood cultures are negative 3. Thrombocytopenia. We will monitor. 4. Anemia , normocytic, normochromic. Workup is still pending. Hemoglobin is stable. Contin ue to monitor. Possibly element of iron deficiency anemia. We will start oral iron 5. Possible infiltrates on chest x-ray. Continue Zithromax and start Omnicef, day #5 of ant ibiotics 6. Alcohol withdrawal. Continue CIWA protocol 7. Cirrhosis with hepatic encephalopathy. Continue lactulose, Lasix, Aldactone 8. Hypomagnesemia, will replenish, will start oral magnesium supplementation 9. DVT prophylaxis. Will use only mechanical agents 10. Fluid overload. Continue Lasix, echocardiogram results are noted 11. Hypertension. Patient started on Norvasc. We will monitor blood pressure closely 12. Leukopenia, will monitor closely 13. Moderate protein malnutrition. Dietitian consult 14. Hyersphosphatemia. We will monitor The plan has explained in detail to the patient , all questions were answered.All data was reviewed. Disposition: Possibly discharge in 1-2 days Code Status: Full Code Micki Redding MD 02/11/2014 7:47 AM This entry has been created using [employer] Speech Recognition software and Snipi. The entry has been reviewed and there may still exist sound alike word errors. onversion Trans action, Provider Unknown - 02/10/2014 4:20 PM PST Therapy Progress Note by Daly Cuba MS CCC-SURVEY PROJECT MANAGER at 02/10/14 6380 Author: Daly Cuba MS CCC-SURVEY PROJECT MANAGER Service: (none) Author Type: Speech and Construction Services Technician ologist Filed: 02/10/14 3304 Date of Service: 02/10/14 1620 Status: Signed Vice President & General Manager [employer]: Daly Cuba MS CCC-SURVEY PROJECT MANAGER (Speech and Language Pathologist) 02/10/14 1620 Swallowing Assessment Eval Swallowing Treatment Yes Initial Swallow Assessment Behavior/Cognition Alert;Cooperative;Confused Vision Functional for self-feeding Patient Positioning (sitting at edge of bed) Baseline Vocal Quality Weak Consistencies Consistencies Assessed Yes Thin Presentation Self Fed;Straw Oral Phase Thin WFL Pharyngeal Phase No overt signs or symptoms of aspiration Regular Presentation Self Fed Oral Phase WFL Pharyngeal Phase No overt signs or symptoms of aspiration Recommendations Liquids Consistency Recommendations Thin Diet Consistency Recommendation Regular (cut up) Recommendations Set up with meals;Check on patients frequently throught out meals;Dysphagia treatment Risk for Aspiration Mild Compensatory Swallowing Strategies Upright as possible for all oral intake;Eat/feed slowly; Small bites/sips Recommended Form of Meds Meds with recommended liquid Summary Pt tolerated regular texture trials WFL. She is still weak & confused, and would be nefit from food cut-up for her on her meal trays. Rec upgrade diet to regular,cut up,cont th in liquids. SURVEY PROJECT MANAGER to f/u x1 to ensure santy. Staff Notified MD;RN Plan of Care Treatment Plan ST to follow;Dysphagia treatment;Follow up x1 to ensure tolerance Follow up treatments Patient/Family education;Diet tolerance monitoring Dysphagia Goals Short Term Goals Tolerate diet Pt will tolerate diet Dysphagia mechanically altered;With min supervision;Goal met Micki Walton MD - 02/10/2014 8:12 AM PSTFormatting of this note might be different from t hanny original. Progress Notes by Micki Redding MD at 02/10/14 0812 Author: Micki Redding MD Service: (none) Author Type: Physician Filed: 02/10/14 1114 Date of Service: 02/10/14811 Status: Signed Vice President & General Manager [employer]: Micki Redding MD (Physician) [facility] Service: Hospitalist Progress Note Hospital Day: LOS: 4 days SUBJECTIVE Patient Summary: 43-year-old female with history of alcohol abuse. history of withdra wal seizures, cirrhosis, hypertension, admitted with seizures and urinary tract infection. S he was started on Zosyn and Zithromax for possible pneumonia and the CIWA protocol. Events Overnight: Patient denies any complaints. States that she feels well. She want s to go home Scheduled Medications azithromycin 500 mg Oral Daily cefTRIAXone 1 g Intravenous Q24H famotidine 20 mg Oral BID Or famotidine 20 mg Intravenous BID folic acid (FOLVITE) IVPB 1 mg Intravenous Daily Or multivitamin & minerals w iron/FA 1 tablet Oral Daily furosemide 20 mg Oral Daily influenza vaccine quadrivalent-split 0.5 mL Intramuscular Once Immunization lactulose 20 g Oral TID sodium chloride (PF) 10 mL Intravenous Q8H sodium chloride 0.9 % 10 mL Intravenous Q12H TEMI spironolactone 50 mg Oral Daily thiamine (VITAMIN B1) IVPB 100 mg Intravenous Daily Or thiamine 100 mg Oral Daily Continuous Infusions PRN Medications acetaminophen, acetaminophen, diazepam, diazepam, diazepam, labetalol, LORazepam, magnesium sulfate, magnesium sulfate, magnesium sulfate, phosphorus, polyethylene glycol, potassium c hloride, potassium chloride, potassium chloride, sodium chloride 0.9 %, sodium phosphate IVP B 15 mmol, sodium phosphate IVPB 30 mmol OBJECTIVE Vital Signs: BP 156/87 | Pulse 90 | Temp(Src) 96.9 F (36.1 C) (Axillary) | Resp 20 | Ht 1.702 m (5' 7.01") | Wt 69 kg (152 lb 1.9 oz) | BMI 23.82 kg/m2 | SpO2 98% | ? Unknown Patient Vitals for the past 24 hrs: BP Temp Temp src Pulse Resp SpO2 Weight 02/10/14 0538 - - - 90 - - - 02/10/14 0400 156/87 mmHg - - 96 - - - 02/10/14 0328 156/87 mmHg 96.9 F (36.1 C) Axillary 88 20 98 % 69 kg (152 lb 1.9 oz) 02/10/14 0036 132/84 mmHg 97.9 F (36.6 C) Axillary 92 - - - 02/09/14 1952 156/77 mmHg - - 98 - - - 02/09/14 1923 156/98 mmHg 98.9 F (37.2 C) Axillary 100 22 97 % - 02/09/14 1651 160/95 mmHg 97 F (36.1 C) Axillary 91 20 98 % - 02/09/14 1226 119/72 mmHg 96.3 F (35.7 C) Axillary 85 24 97 % - Intake/Output Summary (Last 24 hours) at 02/10/14 0812 Last data filed at 02/10/14 0328 Gross per 24 hour Intake 1040 ml Output 950 ml Net 90 ml Physical Exam: Constitutional: Alert and oriented to person, place, and time. HEENT: Neck supple, no JVD, non icteric sclera. Cardiovascular: Normal rate, regular rhythm, normal heart sounds with S1 and S2, Pulmonary/Chest: Effort normal and breath sounds are decreased bilaterally Abdominal: Soft. Bowel sounds are normal. Abdominal distention present, no guarding or rigi dity. No tenderness. No rebound Extremeties/Musculoskeletal: Normal range of motion.exhibits no tenderness. exhibits no ed savannah. Neurological: Alert and oriented to person, place, and time. Tremors present. both upper e xtremities Skin: Skin is warm and dry. Psychiatric: appears depressed DATA Recent Labs Lab 02/10/14 0549 02/09/14 0518 02/08/14 0540 WBC 3.9 6.0 4.7 RBC 2.69* 3.04* 3.34* HGB 8.3* 9.3* 10.4* HCT 25.4* 27.9* 31.3* MCV 94.4 91.8 93.7 MCH 30.9 30.5 31.1 MCHC 32.7 33.3 33.2 RDW 57.3* 55.1* 53.4* PLT 72* 70* 67* MPV 8.5 8.5 8.5 DIFFTYPE MANUAL MANUAL AUTOMATED Recent Labs Lab 02/10/14 0549 02/09/14 0518 02/08/14 0540 02/07/14 0630 NA 136 134* 129* -- 138 K 3.2* 3.4* 3.9 < > 3.2* CL 107 105 103 -- 106 CO2 22* 22* 22* -- 25 BUN 6* 5* 5* -- 5* CREATININE 0.59 0.57 0.51 -- 0.60 PROT 5.3* 5.6* -- -- 5.9* BILITOT 1.0 1.3 -- -- 1.2 ALT 14 19 -- -- 21 AST 41 62* -- -- 84* GLUF 113* 95 98 -- 77 < > = values in this interval not displayed. No results found for this basename: CKTOTAL, TROPONINI, TROPONINT, CKMBINDEX, in the last 168 hours Recent Labs Lab 02/10/14 0549 02/09/14 0518 02/08/14 2252 PHOS 4.0 4.9* 5.5* Recent Labs Lab 02/10/14 0549 02/09/14 0518 02/08/14 2252 MG 1.1* 1.4* 1.2* X-ray Chest Frontal And Lateral 02/07/2014 FINDINGS/ IMPRESSION: Low lung volumes. Heart size and mediastinal contours ar e unchanged. No pneumothorax, no pleural effusion. Left basilar atelectasis/aspiration. N o acute osseous abnormality. Ct Head Without Contrast 02/07/2014 No acute intracranial process. RADIA Electronically signed by Rosalinda cabrera MD on Feb 07 2014 3:55AM Referring Provider Line: [phone] ID: [id number] X-ray Chest 1 View 02/09/2014 1. Persistent chronic bronchitis. 2. Superimposed acute interstitial process cannot be excluded. 3. Borderline cardiac enlargement, accentuated due to low lung volumes. LEM LIST Principal Problem: Seizure disorder, secondary Active Problems: Thrombocytopenia, unspecified Anemia Hepatic encephalopathy Alcohol dependence Urinary tract infection, site not specified (UTI) Malnutrition of moderate degree ASSESSMENT & PLAN 1. Seizure disorder, most probably alcohol withdrawal seizure. No further episodes in the h ospital 2. Urinary tract infection secondary to Escherichia coli. We will stop Zosyn and start IV R ocephin.. On day 4 of IV antibiotics 3. Thrombocytopenia. We will monitor. We will stop Heparin 4. Anemia , normocytic, normochromic. Hemoglobin has been dropping. We will continue to mon itor closely. Will workup. No signs of any active bleeding 5. Possible infiltrates on chest x-ray. Continue Zithromax and Rocephin on day 4 6. Altered level of consciousness. Appears to have resolved 7. Cirrhosis with hepatic encephalopathy. Continue lactulose, Lasix, Aldactone 8. Hypokalemia and hypomagnesemia, will replenish 9. DVT prophylaxis. Will use only mechanical agents 10. Fluid overload. Continue Lasix, echocardiogram results are pending 11. Hypertension. Blood pressure is fairly well controlled 12. Alcohol withdrawal. We will continue CIWA protocol. We will stop Haldol Case management consulted for discharge planning The plan has explained in detail to the patient , all questions were answered.All data was reviewed. Disposition: Possibly discharge tomorrow Code Status: Full Code Micki Redding MD 02/10/2014 8:12 AM This entry has been created using [employer] Speech Recognition software and Snipi. The entry has been reviewed and there may still exist sound alike word errors. onversion Trans action, Provider Unknown - 02/10/2014 5:42 AM PST Progress Notes by Yamileth Mcnally RN at 02/10/1442 Author: Yamileth Mcnally RN Service: (none) Author Type: Registered Nurse Filed: 02/10/14 0553 Date of Service: 02/10/14541 Status: Signed Vice President & General Manager [employer]: Yamileth Mcnally RN (Registered Nurse) Received pt. Refer to [facility] [facility] assessment, medicated at that time, slept until 0200, awoke hun gry, at cheese sandwish, [place], 7up, tolerated well. Became emotional crying because her caleb ther did not visit, re-orientated to date and time, no recollection of how she got here, rem embers going to [place] in [place]. Asked pt. If she was trying to stop drinking, stat ed that was the plan, teaching done regarding ETOH withdrawal. She stated she did not want to , reassured she could change with medical support and AA. Became withdrawn, medicated and encouraged to sleep. onver miriam Transaction, Provider Unknown - 02/09/2014 5:14 PM PST Progress Notes by Manisha Lemus RN at 02/09/14 1714 Author: Manisha Lemus RN Service: (none) Author Type: Registered Nurse Filed: 02/09/14 1715 Date of Service: 02/09/14 1714 Status: Signed Vice President & General Manager [employer]: Manisha Lemus RN (Registered Nurse) Nurse called to report picc line not flushing after picc placed. Picc nurse changed dressin g and pulled out picc to 7cm with triple lumens flushing well and positive blood return. New sterile dressing placed. onver miriam Transaction, Provider Unknown - 02/09/2014 4:45 PM PST Therapy Progress Note by Daly Cuba MS CCC-SURVEY PROJECT MANAGER at 02/09/14 1645 Author: Daly Cuba MS CCC-SURVEY PROJECT MANAGER Service: (none) Author Type: Speech and Construction Services Technician ologist Filed: 02/09/141651 Date of Service: 02/09/141644 Status: Signed Vice President & General Manager [employer]: Daly Cuba MS CCC-SURVEY PROJECT MANAGER (Speech and Language Pathologist) 02/09/141644 Swallowing Assessment Eval Swallowing Treatment Yes Initial Swallow Assessment Behavior/Cognition Lethargic;Cooperative Patient Positioning Upright in bed Consistencies Consistencies Assessed Yes Thin Presentation Straw;Self Fed Oral Phase Thin WFL Pharyngeal Phase No overt signs or symptoms of aspiration Recommendations Liquids Consistency Recommendations Thin Diet Consistency Recommendation Dysphagia mechanically altered Recommendations Set up with meals;Check on patients frequently throught out meals;Dysphagia treatment Risk for Aspiration Mild Compensatory Swallowing Strategies Upright as possible for all oral intake;Remain upright f or 30 minutes after meals;Slow rate presentation;Small bites/sips;Eat/feed slowly Recommended Form of Meds Meds floated in puree;Meds with recommended liquid Summary Pt tolerated sips of water via straw free from overt s/sx aspiration. Solid trials weren't given as pt's IV was needing attending to by nursing. Pt's sitter re: pt tolerated l unch and recent snack without any coughing or obvious signs of difficulty, and even fed hers elf recently. Rec cont current diet at this time w/aspiration precautions. SURVEY PROJECT MANAGER to cont to fo llow for diet santy and to upgrade as indicated. Staff Notified RN Plan of Care Treatment Plan ST to follow;Dysphagia treatment;Continue with current plan Follow up treatments Diet tolerance monitoring;Patient/Family education;Assessment for upgr tirso Dysphagia Goals Medical Assistant Instructor Goals Safe/efficient oral intake Pt will have safe/efficient oral intake Thin liquids;Goal progressing Celso Madsen MD - 02/09/2014 1:05 PM PST Progress Notes by Celso Goldberg MD at 02/09/14 1305 Author: Celso Goldberg MD Service: Hospitalist Author Type: Physician Filed: 02/09/14 1312 Date of Service: 02/09/14 1305 Status: Signed Vice President & General Manager [employer]: Celso Goldberg MD (Physician) [facility] Service: Hospitalist Progress Note Pt: Shaila Son AGE/SEX: 43 y.o. female ROOM: [address] [place] [address] : 1970 PCP: Efra Holguin ADMIT DATE: 02/06/2014 TODAY'S DATE: 02/09/2014 Hospital Day/Hospital Course: LOS: 3 days SUBJECTIVE: Patient seen and examine. Patient somnolent, respond to verbal stimuli, answers questions b ut very confused. Denies pain. Scheduled Medications: albumin human 25 g Intravenous Q72H azithromycin 500 mg Intravenous Q24H famotidine 20 mg Oral BID Or famotidine 20 mg Intravenous BID folic acid (FOLVITE) IVPB 1 mg Intravenous Daily Or multivitamin & minerals w iron/FA 1 tablet Oral Daily furosemide 20 mg Intravenous Daily influenza vaccine quadrivalent-split 0.5 mL Intramuscular Once Immunization lactulose 20 g Oral TID lidocaine buffered 1% 0.5 mL Intradermal Once piperacillin-tazobactam 3.375 g Intravenous Q8H sodium chloride (PF) 10 mL Intravenous Q8H sodium chloride 0.9 % 10 mL Intravenous Q12H TEMI spironolactone 50 mg Oral Daily thiamine (VITAMIN B1) IVPB 100 mg Intravenous Daily Or thiamine 100 mg Oral Daily Continuous Infusions PRN Medications acetaminophen, acetaminophen, diazepam, diazepam, diazepam, haloperidol lactate, labetalol, LORazepam, magnesium sulfate, magnesium sulfate, magnesium sulfate, phosphorus, polyethylen e glycol, potassium chloride, potassium chloride, potassium chloride, sodium chloride 0.9 %, sodium phosphate IVPB 15 mmol, sodium phosphate IVPB 30 mmol, zolpidem Allergy: Allergies Allergen Reactions Ciprofloxacin Other (See Comments) Pt. Unable to recall, this information came from [facility] record Ibuprofen Other (See Comments) Pt. Unable to recall, this information came from [facility] record OBJECTIVE: Vitals: Patient Vitals for the past 24 hrs: BP Temp Temp src Pulse Resp SpO2 02/09/14 1226 119/72 mmHg 96.3 F (35.7 C) Axillary 85 24 97 % 02/09/14 0807 137/85 mmHg 98 F (36.7 C) Oral 106 30 96 % 02/09/14 0630 143/81 mmHg - - 99 - - 02/09/14 0617 - - - 98 - - 02/09/14 0545 133/84 mmHg - - 102 - - 02/09/14 0531 133/84 mmHg - - 103 - - 02/09/14 0433 130/83 mmHg 98.4 F (36.9 C) Oral 100 32 95 % 02/09/14 0429 - - - 101 - - 02/09/14 0331 135/88 mmHg - - 103 - - 02/09/14 0229 183/87 mmHg - - 103 - - 02/09/14 0100 125/90 mmHg - - 102 - - 02/09/14 0029 158/76 mmHg - - 100 - - 02/08/14 2326 171/89 mmHg 98.5 F (36.9 C) Oral 98 30 96 % 02/08/14 2230 148/102 mmHg - - 97 - - 02/08/14 2134 156/85 mmHg - - 94 - - 02/08/14 2030 168/80 mmHg - - 93 - - 02/08/14 1944 184/123 mmHg - - 89 - - 02/08/14 1845 - - - 92 - - 02/08/14 1830 152/86 mmHg - - 92 - - 02/08/14 1730 - - - 92 - - 02/08/14 1630 159/91 mmHg - - 88 - - 02/08/14 1545 169/82 mmHg 98.6 F (37 C) Oral 92 18 93 % 02/08/14 1430 151/115 mmHg - - 92 - - 02/08/14 1331 151/97 mmHg - - 88 - - I&O Detailed Table: Intake/Output Summary (Last 24 hours) at 02/09/14 1305 Last data filed at 02/09/14 0625 Gross per 24 hour Intake 1741 ml Output 0 ml Net 1741 ml Patient Vitals for the past 96 hrs: Weight 02/07/14 0107 68.9 kg (151 lb 14.4 oz) 02/06/14 2220 63.504 kg (140 lb) Hemodynamics Last 24hrs: Physical Examination: Constitutional: Alert and awake, confused and hallucinating. HEENT: Neck supple, no JVD, non icteric sclera. Cardiovascular: Normal rate, regular rhythm, normal heart sounds with S1 and S2, and intact distal pulses. Exam reveals no gallop and no friction rub. No murmur heard. Pulmonary/Chest: Effort normal and breath sounds normal. No stridor. No respiratory distres s. no wheezes. no rales. exhibits no tenderness. Abdominal: Soft. Bowel sounds are normal. exhibits no distension and no mass. There is no t enderness. There is no rebound and no guarding. Extremeties/Musculoskeletal: Normal range of motion.exhibits no tenderness. exhibits no ed savannah. Neurological: Alert and awake, no focal weakness. Confused. Skin: Skin is warm and dry. No pallor. LABS: Recent Labs Lab 02/09/14 0518 02/08/14 0540 02/07/14 0730 WBC 6.0 4.7 3.7* HGB 9.3* 10.4* 8.9* HCT 27.9* 31.3* 26.3* PLT 70* 67* 49* NEUTOPHILPCT -- 70.1 59.0 MONOPCT -- 16.7 21.8 Recent Labs Lab 02/09/14 0518 02/08/14 0540 02/07/14 1824 02/07/14 0630 NA 134* 129* -- 138 K 3.4* 3.9 3.2* 3.2* CL 105 103 -- 106 CO2 22* 22* -- 25 BUN 5* 5* -- 5* CREATININE 0.57 0.51 -- 0.60 PROT 5.6* -- -- 5.9* BILITOT 1.3 -- -- 1.2 ALT 19 -- -- 21 AST 62* -- -- 84* Phosphorus: Lab Results Component Value Date PHOS 4.9* 02/09/2014 No components found with this basename: LABALBU, Recent Labs Lab 02/09/14 0518 02/08/14 2252 02/08/14 0540 MG 1.4* 1.2* 1.4* No results found for this basename: AMYLASE, in the last 168 hours No results found for this basename: PHART, PO2ART, SWU8MAZ, [id number], BEART, in the last 1 68 hours No results found for this basename: APTT, INR, PTT, in the last 168 hours Recent Labs Lab 02/07/14 0630 TSH 3.20 No results found for this basename: CKTOTAL, TROPONINI, TROPONINT, CKMBINDEX, in the last 168 hours PROBLEM LIST Principal Problem: Seizure disorder, secondary Active Problems: Thrombocytopenia, unspecified Anemia Hepatic encephalopathy Alcohol dependence Fever, unspecified ASSESSMENT & PLAN 1. Delirium Tremens, and alcohol withdrawal seizure before admission. Likely alcohol withd yamila seizure, continue IV Ativan per CIWA protocol and for seizure. 2. Possible hepatic encephalopathy. She was started on Lactulose. Haldol PRN for agitation. Continue Thiamine and folic acid, IV hydration. 3. Fever. Secondary to UTI, urine culture grew 100,000 Gram negative rods, continue current antibiotics, she is currently on Zosyn and Zithromax, possible pulmonary infiltrates, she i s saturating well on room air. Blood culture remains negative, will continue to follow. 4. Thrombocytopenia. alcohol related, trending up, 70 today, will continue to monitor. 5. Volume overload, possible pulmonary congestion versus aspiration, CXR was reviewed, will order swallowing evaluation and ECHO was ordered, continue IV Lasix. 6. HTN, she is on Aldactone. IV Labetalol as needed. 7. Alcoholic liver disease will monitor liver function. 8. Hypokalemia, hypophosphatmia and Hypomagnesemia on electrolyte replacement protocol. 9. Hyponatremia, Likely in setting of liver disease, will monitor.. 10. Anemia. with no current signs of bleeding. 11. DVT prophyloaxis SCD and Heparin, her platelets 70 today, will monitor. I spent 25 minutes in examining, evaluating and providing further management for this patie nt today. Celso Goldberg MD 02/09/2014 1:05 PM onversion Transac tion, Provider Unknown - 02/09/2014 11:46 AM PSTFormatting of this note might be different f rom the original. Progress Notes by Lonnie Liu RD, NITIN at 02/09/14 1146 Author: Lonnie Liu RD, NITIN Service: (none) Author Type: Registered Dietitian Filed: 02/09/14 1211 Date of Service: 02/09/14 1146 Status: Signed Vice President & General Manager [employer]: Lonnie Liu RD, NITIN (Registered Dietitian) Nutrition Assessment and Recommendations Assessment: Pt triggered for screen secondary to dysphagia. Pt admitted secondary to ETOH withdrawal, currently agitated, having hallucinations and requiring a sitter. In to visit p t who is sleeping, sitter reports pt very confused when awake. Speech therapy has seen and recommending dysphagia mech altered diet secondary to prolonged mastication and weakness. BMI: Pt's BMI (23.8) WNL, pt now 112% of midpoint of ideal body wt range. Wt maintenance d esired. Wt history: Unknown. Nutritionally pertinent labs: Ammonia elevated though trending down with Lactulose. K+, Mg +, and phos all low at admit, being supplemented per electrolyte replacement protocol. Pt a t risk for Refeeding Syndrome if fed aggressively secondary to chronic alcohol abuse, low K+ , Mg+ and phos. Anticipate intake will improve over time as mentation clears but K+, Mg+ an d phos should be closely monitored and supplemented as needed. Albumin low, consistent with impaired liver function. Food and nutrition-related hx: Unknown. Current intake: Minimal, less than 10% of estimated needs so far secondary to altered menta l status. Estimated needs: Based on admit wt of 68.9 kg. Kcal: 1184-2610 kcal/day (30-35 kcal/kg). Increased kcal needs with impaired liver function . Protein: 69-103 gr/day (1.0-1.5 gr/kg). Provide lower end of protein needs while pt with e ncephalopathy, provide more protein once confusion clears. Nutrition Diagnosis: Inadequate intake related to decreased ability to consume sufficient energy secondary to altered mental status and increased nutritional needs secondary to impai red liver function, chronic alcohol abuse as evidenced by intake of less than 10% of estimat ed kcal and protein needs. Intervention: House diet, feeding assist as needed. Health Shakes on lunch and dinner tra y. Goals: Pt will consume at least 75% of each meal by time of discharge. Recommendations: General [facility] advanced house diet with thin liquids as ordered. Can limit sodium if fluid retention an issue. Further diet consistency recommendations per SURVEY PROJECT MANAGER. Sit ter/nursing staff to assist with feeds. Health Shakes BID. Continue to closely monitor K+, M g+ and phos and supplement to WNL per electrolyte replacement protocol. Will continue to m onitor intake for adequacy, further nutrition intervention as indicated. Monitoring: Will follow up in three days per nutrition protocol. LONNIE LIU RD, CD Sarah Rooneyaction, Provider Unknown - 02/09/2014 3:47 AM PST Nurse Progress Note by Yumiko Watson RN at 02/09/14346 Author: Yumiko Watson RN Service: (none) Author Type: Registered Nurse Filed: 02/09/14347 Date of Service: 02/09/14346 Status: Signed Vice President & General Manager [employer]: Yumiko Watson RN (Registered Nurse) Patient has been experiencing hallucinations and agitation. Attempting to pull out IV line s and kick sitter when repositioning the patient. Medicating with Valium every hour with CT N ativan and haldol as well. CIWA scores remain above 15. Will continue to monitor. Celso Madsen MD - 02/08/2014 5:30 PM PST Progress Notes by Celso Goldberg MD at 02/08/141729 Author: Celso Goldberg MD Service: Hospitalist Author Type: Physician Filed: 02/08/14 542 Date of Service: 02/08/141729 Status: Addendum Vice President & General Manager [employer]: Celso Goldberg MD (Physician) Related Notes: Original Note by Celso Goldberg MD (Physician) filed at 02/08/14 0115 [facility] Service: Hospitalist Progress Note Pt: Shaila Son AGE/SEX: 43 y.o. female ROOM: [address] [place], [place] [id number] : 1970 PCP: Efra Holguin ADMIT DATE: 02/06/2014 TODAY'S DATE: 02/08/2014 Hospital Day/Hospital Course: LOS: 2 days SUBJECTIVE: Patient seen and examine. Patient is alert and awake, but confused, she is disoriented x3, tried to get out of bed, and irritable. Scheduled Medications: albumin human 25 g Intravenous Q72H azithromycin 500 mg Intravenous Q24H famotidine 20 mg Oral BID Or famotidine 20 mg Intravenous BID folic acid (FOLVITE) IVPB 1 mg Intravenous Daily Or multivitamin & minerals w iron/FA 1 tablet Oral Daily furosemide 20 mg Intravenous Daily [START ON 02/09/2014] influenza vaccine quadrivalent-split 0.5 mL Intramuscular Once Im munization lactulose 20 g Oral TID LORazepam 1 mg Intravenous QPM piperacillin-tazobactam 3.375 g Intravenous Q8H sodium chloride (PF) 10 mL Intravenous Q8H spironolactone 50 mg Oral Daily thiamine (VITAMIN B1) IVPB 100 mg Intravenous Daily Or thiamine 100 mg Oral Daily Continuous Infusions PRN Medications acetaminophen, acetaminophen, diazepam, diazepam, diazepam, haloperidol lactate, labetalol, LORazepam, magnesium sulfate, magnesium sulfate, magnesium sulfate, phosphorus, polyethylen e glycol, potassium chloride, potassium chloride, potassium chloride, sodium phosphate IVPB 15 mmol, sodium phosphate IVPB 30 mmol, zolpidem Allergy: Allergies Allergen Reactions Ciprofloxacin Other (See Comments) Pt. Unable to recall, this information came from [facility] record Ibuprofen Other (See Comments) Pt. Unable to recall, this information came from [facility] record OBJECTIVE: Vitals: Patient Vitals for the past 24 hrs: BP Temp Temp src Pulse Resp SpO2 02/08/14 1630 159/91 mmHg - - 88 - - 02/08/14 1545 169/82 mmHg 98.6 F (37 C) Oral 92 18 93 % 02/08/14 1430 151/115 mmHg - - 92 - - 02/08/14 1331 151/97 mmHg - - 88 - - 02/08/14 1142 136/92 mmHg 97.7 F (36.5 C) Axillary 89 16 95 % 02/08/14 1030 123/82 mmHg - - 88 - - 02/08/14 0930 137/76 mmHg - - 99 - - 02/08/14 0804 147/108 mmHg 98.2 F (36.8 C) Oral 116 16 97 % 02/08/14 0650 160/94 mmHg - - 134 - - 02/08/14 0519 149/95 mmHg - - 123 - - 02/08/14 0435 - - - 120 - - 02/08/14 0414 140/97 mmHg 97.2 F (36.2 C) Oral 134 16 95 % 02/08/14 0401 145/90 mmHg - - 123 - - 02/08/14 0335 144/106 mmHg - - 116 - - 02/08/14 0300 187/113 mmHg - - 119 - - 02/08/14 0200 145/94 mmHg - - 113 - - 02/08/14 0101 - - - 109 - - 02/08/14 0100 146/90 mmHg - - 127 - - 02/08/14 0048 156/91 mmHg 98.8 F (37.1 C) Oral 111 16 97 % 02/08/14 0000 - - - 109 - - 02/07/14 2300 - - - 119 - - 02/07/14 2200 - - - 105 - - 02/07/14 2106 148/90 mmHg 99.3 F (37.4 C) Oral 117 14 96 % 02/07/14 2000 - - - 135 - - 02/07/14 1900 145/88 mmHg - - 106 - - 02/07/14 1800 152/92 mmHg - - 85 - - I&O Detailed Table: Intake/Output Summary (Last 24 hours) at 02/08/141729 Last data filed at 02/08/14 1730 Gross per 24 hour Intake 4381 ml Output 0 ml Net 4381 ml Patient Vitals for the past 96 hrs: Weight 02/07/14 0107 68.9 kg (151 lb 14.4 oz) 02/06/14 2220 63.504 kg (140 lb) Hemodynamics Last 24hrs: Physical Examination: Constitutional: Alert and awake, confused and hallucinating. HEENT: Neck supple, no JVD, non icteric sclera. Cardiovascular: Normal rate, regular rhythm, normal heart sounds with S1 and S2, and intact distal pulses. Exam reveals no gallop and no friction rub. No murmur heard. Pulmonary/Chest: Effort normal and breath sounds normal. No stridor. No respiratory distres s. no wheezes. no rales. exhibits no tenderness. Abdominal: Soft. Bowel sounds are normal. exhibits no distension and no mass. There is no t enderness. There is no rebound and no guarding. Extremeties/Musculoskeletal: Normal range of motion.exhibits no tenderness. exhibits no ed savannah. Neurological: Alert and awake, no focal weakness. Confused. Skin: Skin is warm and dry. No pallor. LABS: Recent Labs Lab 02/08/1453902/07/14 0730 WBC 4.7 3.7* HGB 10.4* 8.9* HCT 31.3* 26.3* PLT 67* 49* NEUTOPHILPCT 70.1 59.0 MONOPCT 16.7 21.8 Recent Labs Lab 02/08/1453902/07/14182302/07/14 0630 NA 129* -- 138 K 3.9 3.2* 3.2* CL 103 -- 106 CO2 22* -- 25 BUN 5* -- 5* CREATININE 0.51 -- 0.60 PROT -- -- 5.9* BILITOT -- -- 1.2 ALT -- -- 21 AST -- -- 84* Phosphorus: Lab Results Component Value Date PHOS 1.7* 02/08/2014 No components found with this basename: LABALBU, Recent Labs Lab 02/08/1453902/07/14182302/07/14 0630 MG 1.4* 1.3* 1.4* No results found for this basename: AMYLASE, in the last 168 hours No results found for this basename: PHART, PO2ART, EIP4HDI, [id number], BEART, in the last 1 68 hours No results found for this basename: APTT, INR, PTT, in the last 168 hours Recent Labs Lab 02/07/14 0630 TSH 3.20 No results found for this basename: CKTOTAL, TROPONINI, TROPONINT, CKMBINDEX, in the last 168 hours PROBLEM LIST Principal Problem: Seizure disorder, secondary Active Problems: Thrombocytopenia, unspecified Anemia Hepatic encephalopathy Alcohol dependence Fever, unspecified ASSESSMENT & PLAN 1. Delirium Tremens, and alcohol withdrawal seizure before admission. Likely alcohol withd yamila, continue IV Ativan per [facility] protocol and for seizure. Possible hepatic encephalopathy Ammonia 60. She was started on Lactulose. Haldol was ordered for agitation. Continue Thiami ne and folic acid, IV hydration. 2. Fever. Secondary to UTI, urine culture grew 100,000 Gram negative rods, continue current antibiotics, she is currently on Zosyn and Zithromax, possible pulmonary infiltrates, she i s saturating well on room air. 3. Thrombocytopenia. Probably alcohol related, trending up, will monitor. 4. HTN, she is on Aldactone. IV Labetalol as needed. 5. Alcoholic liver disease will monitor liver function. 6. Hypokalemia, hypophosphatmia and Hypomagnesemia on electrolyte replacement protocol. 7. Hyponatremia, will order serum osmolarity and urine sodium osm. 7. Anemia. with no current signs of bleeding. 8. DVT prophyloaxis SCD no Heparin bec of thrombocytopenia I spent 25 minutes in examining, evaluating and providing further management for this patie nt today. Celso Goldberg MD 02/08/2014 5:30 PM onversion Transac tion, Provider Unknown - 02/08/2014 11:22 AM PSTFormatting of this note might be different f rom the original. Progress Notes by Elida Gamble RN at 02/08/14 112 Author: Elida Gamble RN Service: (none) Author Type: Registered Nurse Filed: 02/08/14 1126 Date of Service: 02/08/141121 Status: Signed Vice President & General Manager [employer]: Elida Gamble RN (Registered Nurse) Patient became increasingly agitated, pulling at lines and trying to get out of bed. Strong hallucinations were she believed staff was taking her belongings and trying to hurt her, sw inging/hitting at staff. Lead nurse notified sitter requested and at bedside. Additional med ications given to include valium and haldol. Vital signs as patient will allow, continuous t elemetry. Patient responded to haldol dose, calmed down and resting in bed. Per sitter renuka nue to hallucinate, and mess with lines.Will continue to monitor onver miriam Transaction, Provider Unknown - 02/08/2014 8:10 AM PST Progress Notes by Elida Gamble RN at 02/08/14809 Author: Elida Gamble RN Service: (none) Author Type: Registered Nurse Filed: 02/08/14812 Date of Service: 02/08/14809 Status: Signed Vice President & General Manager [employer]: Elida Gamble RN (Registered Nurse) Discussed case with Dr Gloria Celestin, will continue electrolytes and order phosphorus as wel l for this morning based on am labs, will cancel third set of blood cultures, two sets alrea dy drawn with results pending verified with Mitchell in lab, and will cancel Paracentesis patie nt not complaining of any stomach pain and has had no fevers since admission. Patient still requiring frequent CIWa and ativan. Bed alarm in place with frequent nurse and CARBONIZER TESTER presence in patients room. Patient confused and hallucinating. Will continue to monitor onver miriam Transaction, Provider Unknown - 02/08/2014 4:33 AM PST Progress Notes by Alessandro Ward RN at 02/08/14432 Author: Alessandro Ward RN Service: (none) Author Type: Registered Nurse Filed: 02/08/145 Date of Service: 02/08/14432 Status: Signed Vice President & General Manager [employer]: Alessandro Ward RN (Registered Nurse) Pt experiencing visual and auditory hallucinations, very agitated, impulsive. CIWA protoco l in place. Pt requires very close supervision onver miriam Transaction, Provider Unknown - 02/08/2014 1:47 AM PDT Progress Notes by Alessandro Ward RN at 02/08/14146 Author: Alessandro Ward RN Service: (none) Author Type: Registered Nurse Filed: 02/08/14 0154 Date of Service: 02/08/14146 Status: Signed Vice President & General Manager [employer]: Alessandro Ward RN (Registered Nurse) Pt very impulsive, restless, confused this evening. Pt bed alarm on. Pt found out of bed multiple times, confused and pulling at lines. Request for a sitter or a room closer to the nurses station made. Pt had several bowel movements in bed/on floor. Lactulose held for n ow. CIWA protocol in place. No seizure activity noted. Pt instructed on how to use call li ght multiple times, poor attention span/forgetful. Increased supervision necessary. onver miriam Transaction, Provider Unknown - 02/07/2014 2:28 PM PDT Case Management by Olman Mendoza RN at 02/07/141427 Author: Olman Mendoza RN Service: (none) Author Type: Junior Electrical Engineer Filed: 02/07/14 1432 Date of Service: 02/07/141427 Status: Signed Vice President & General Manager [employer]: Olman Mendoza RN (Junior Electrical Engineer) 02/07/141426 Discharge Planning Evaluation Admitting Diagnosis Seizure, ETOH withdrawl Readmission No Living Arrangements Family members Type of Residence Private residence Independent with ADL's Yes Independent with Mobility Yes Mental Status Other (comment) Met with pt and discussed discharge planning, Pt is a 43 y.o., female, pt states she lives in private home with family. When asked if pt had a significant other pt became quite and withdrawn, pt only answered to yes and no questions at this time. She is independent with A DL's, refuses any information on substance abuse at this time. CM asked if she would like m e to return at a later time and pt said yes. Pt requested nurse for assistance bathroom. C M will F/U with pt and continue to follow as needs arise. Patient's PCP is: Efra Holguin Patient's insurance: Medicaid Coverage concerns: none Medication coverage/concerns: ? [employer] Bedside Delivery: na Community resources utilized / needed: TBD Assistance in transportation: TBD Identification of any specific education / training: per nursing Barriers to Discharge / Alternative housing needed: TBD Anticipated DCP: TBD, home with family Olman Mendoza onver miriam Transaction, Provider Unknown - 02/07/2014 12:02 PM PDT Therapy Progress Note by CONOR Ramírez-SURVEY PROJECT MANAGER at 02/07/14 1202 Author: CONOR Ramírez-SURVEY PROJECT MANAGER Service: (none) Author Type: Speech and Language Patholo gist Filed: 02/07/14 1202 Date of Service: 02/07/14 120 Status: Signed Vice President & General Manager [employer]: CONOR Ramírez-SURVEY PROJECT MANAGER (Speech and Language Pathologist) 02/07/14 1125 Swallowing Assessment Eval Swallowing Evaluation Yes Initial Swallow Assessment Behavior/Cognition Cooperative;Confused Dentition Adequate;Some missing teeth Vision Functional for self-feeding Patient Positioning Upright in bed Baseline Vocal Quality Normal Volitional Cough Strong Volitional Swallow WFL Oral Motor Exam Labial ROM WFL Labial Symmetry WFL Labial Strength WFL Lingual ROM WFL Lingual Symmetry WFL Lingual Strength WFL Facial Symmetry WFL Vocal Quality WFL Consistencies Consistencies Assessed Yes Ice Chips Presentation Self Fed;Spoon Oral Phase WFL;Increased holding time Pharyngeal Phase No overt signs or symptoms of aspirations Thin Presentation Straw;Cup;Self Fed Oral Phase Thin WFL Pharyngeal Phase No overt signs or symptoms of aspiration Puree Presentation Self Fed;Spoon Oral Phase WFL Pharyngeal No overt signs or symptoms of aspiration Dysphagia Mechanically Altered Presentation Self Fed;Spoon Oral Phase Prolonged mastication;WFL Pharyngeal Phase No overt signs or symptoms of aspiration Regular Presentation Self Fed Oral Phase Prolonged mastication Pharyngeal Phase No overt signs or symptoms of aspiration;Delayed Swallow Recommendations Liquids Consistency Recommendations Thin Diet Consistency Recommendation Dysphagia mechanically altered Recommendations Dysphagia treatment;Set up with meals;Check on patients frequently throught out meals Risk for Aspiration Mild Compensatory Swallowing Strategies Upright as possible for all oral intake;Remain upright f or 30 minutes after meals;Swallow 2 times per bite/sip;Slow rate presentation;Eat/feed slowl y;Small bites/sips;Effortful swallow Recommended Form of Meds Meds floated in puree;Meds with recommended liquid (as tolerated) Summary Pt appeared overall weak; however, pt tolerated all trials of thin liquids and regu lar diet textures without any overt s/sx of aspiration. Pt demo'd prolonged mastication pt t ook 2 minutes to chew one bite of cracker. Recommend thin liquids and dysphagia mechanically alterted diet textures at this time, d/t prolonged masitication and overall weakness. ST to follow to ensure diet tolerance, assesment for upgrade, and swallow safety. Staff Notified MD;RN;CARBONIZER TESTER Plan of Care Treatment Plan Dysphagia treatment;ST to follow;Daily 4 to 6 times a week Follow up treatments Swallow strategies;Diet tolerance monitoring;Patient/Family education; Assessment for upgrade Dysphagia Goals Medical Assistant Instructor Goals Safe/efficient oral intake Pt will have safe/efficient oral intake Thin liquids;Dysphagia mechanically altered diet;N ew/revised goal;With min cues Short Term Goals Tolerate diet Pt will tolerate diet Dysphagia mechanically altered;With min supervision;New/revised goal Anitha Duran MA CFY-SURVEY PROJECT MANAGER 02/07/2014 Celso Madsen MD - 02/07/2014 8:52 AM PDT Progress Notes by Celso Goldberg MD at 02/07/14851 Author: Celso Goldberg MD Service: Hospitalist Author Type: Physician Filed: 02/07/142023 Date of Service: 02/07/14851 Status: Addendum Vice President & General Manager [employer]: Celso Goldberg MD (Physician) Related Notes: Original Note by Celso Goldberg MD (Physician) filed at 02/07/141931 [facility] Service: Hospitalist Progress Note Pt: Shaila Son AGE/SEX: 43 y.o. female ROOM: [address] [place] [address]- : 1970 PCP: Efra Holguin ADMIT DATE: 02/06/2014 TODAY'S DATE: 02/07/2014 Hospital Day/Hospital Course: LOS: 1 day SUBJECTIVE: Patient seen and examine. Patient is somnolent at time of my examination but she answers qu estions, denied pain . Scheduled Medications: albumin human 25 g Intravenous Q72H famotidine 20 mg Oral BID Or famotidine 20 mg Intravenous BID folic acid (FOLVITE) IVPB 1 mg Intravenous Daily Or multivitamin & minerals w iron/FA 1 tablet Oral Daily furosemide 20 mg Intravenous Daily [START ON 02/08/2014] influenza vaccine quadrivalent-split 0.5 mL Intramuscular Once Im munization lactulose 20 g Oral TID LORazepam 1 mg Intravenous QPM piperacillin-tazobactam 3.375 g Intravenous Q8H sodium chloride (PF) 10 mL Intravenous Q8H spironolactone 50 mg Oral Daily thiamine (VITAMIN B1) IVPB 100 mg Intravenous Daily Or thiamine 100 mg Oral Daily Continuous Infusions PRN Medications acetaminophen, acetaminophen, diazepam, diazepam, diazepam, LORazepam, magnesium sulfate, m agnesium sulfate, magnesium sulfate, ondansetron, ondansetron, polyethylene glycol, potassiu m chloride, potassium chloride, potassium chloride, zolpidem Allergy: Allergies Allergen Reactions Ciprofloxacin Other (See Comments) Pt. Unable to recall, this information came from [facility] record Ibuprofen Other (See Comments) Pt. Unable to recall, this information came from [facility] record OBJECTIVE: Vitals: Patient Vitals for the past 24 hrs: BP Temp Temp src Pulse Resp SpO2 Height Weight 02/07/14 0800 165/87 mmHg - - 95 - - - - 02/07/14 0700 159/95 mmHg - - 104 - - - - 02/07/14 0442 159/84 mmHg - - 88 - - - - 02/07/14 0256 140/81 mmHg 100.1 F (37.8 C) Oral 101 14 95 % - - 02/07/14 0200 147/86 mmHg - - 101 - - - - 02/07/14 0107 - - - - - - - 68.9 kg (151 lb 14.4 oz) 02/07/14 0102 159/91 mmHg 100.7 F (38.2 C) Oral 115 16 96 % - - 02/06/14 2357 159/93 mmHg 101 F (38.3 C) Oral 109 16 97 % - - 02/06/14 2309 136/78 mmHg 101.5 F (38.6 C) Oral 122 14 99 % - - 02/06/14 2220 144/77 mmHg 102.2 F (39 C) Oral 121 19 96 % 1.702 m (5' 7.01") 63.504 kg (140 lb) I&O Detailed Table: Intake/Output Summary (Last 24 hours) at 02/07/14 0852 Last data filed at 02/07/14 0642 Gross per 24 hour Intake 0 ml Output 700 ml Net -700 ml Patient Vitals for the past 96 hrs: Weight 02/07/14 0107 68.9 kg (151 lb 14.4 oz) 02/06/14 2220 63.504 kg (140 lb) Hemodynamics Last 24hrs: Physical Examination: Constitutional: Alert and oriented to person, place, and time. Appears well-developed and w ell-nourished. HEENT: Neck supple, no JVD, non icteric sclera. Cardiovascular: Normal rate, regular rhythm, normal heart sounds with S1 and S2, and intact distal pulses. Exam reveals no gallop and no friction rub. No murmur heard. Pulmonary/Chest: Effort normal and breath sounds normal. No stridor. No respiratory distres s. no wheezes. no rales. exhibits no tenderness. Abdominal: Soft. Bowel sounds are normal. exhibits no distension and no mass. There is no t enderness. There is no rebound and no guarding. Extremeties/Musculoskeletal: Normal range of motion.exhibits no tenderness. exhibits no ed savannah. Neurological: Alert and oriented to person, place, and time. Has normal reflexes. display s normal reflexes. No cranial nerve deficit. Exhibits normal muscle tone. Coordination norm al. Skin: Skin is warm and dry. No pallor. Psychiatric: Has a normal mood and affect. Behavior is normal. Judgment normal. LABS: Recent Labs Lab 02/07/14 0730 WBC 3.7* HGB 8.9* HCT 26.3* PLT 49* NEUTOPHILPCT 59.0 MONOPCT 21.8 Recent Labs Lab 02/07/14 0630 NA 138 K 3.2* CL 106 CO2 25 BUN 5* CREATININE 0.60 PROT 5.9* BILITOT 1.2 ALT 21 AST 84* Phosphorus: Lab Results Component Value Date PHOS 2.1* 02/07/2014 No components found with this basename: LABALBU, Recent Labs Lab 02/07/14 0630 MG 1.4* No results found for this basename: AMYLASE, in the last 168 hours No results found for this basename: PHART, PO2ART, NHV5ABU, D2ZMMCJF, BEART, in the last 1 68 hours No results found for this basename: APTT, INR, PTT, in the last 168 hours Recent Labs Lab 02/07/14 0630 TSH 3.20 No results found for this basename: CKTOTAL, TROPONINI, TROPONINT, CKMBINDEX, in the last 168 hours PROBLEM LIST Principal Problem: Seizure disorder, secondary Active Problems: Thrombocytopenia, unspecified Anemia Hepatic encephalopathy Alcohol dependence Fever, unspecified ASSESSMENT & PLAN 1. Seizures. Likely alcohol withdrawal. No recurrence since admission, continue IV Ativan per [facility] protocol and for seizure. She has mild elevation of Ammonia 55. Will recheck tomorr ow and start Lactulose if needed. 2. Fever. Secondary to UTI, she is currently on Zosyn and Zithromax, possible pulmonary inf iltrates will follow respiratory status 3. Thrombocytopenia. Probably alcohol related will monitor. 4. HTN, she is on Aldactone. IV hydralazine as needed. 5. Alcoholic liver disease will monitor liver function. 6. Hypokalemia and Hypomagnesemia on electrolyte replacement protocol. 7. Anemia. with no current signs of bleeding. 8. DVT prophyloaxis SCD no Heparin bec of thrombocytopenia I spent 25 minutes in examining, evaluating and providing further management for this patie nt today. Celso Goldbreg MD 02/07/2014 8:52 AM onversion Transac tion, Provider Unknown - 02/07/2014 3:40 AM PDTFormatting of this note might be different f rom the original. Progress Notes by Jelly Agudelo RN at 02/07/14339 Author: Jelly Agudelo RN Service: (none) Author Type: Registered Nurse Filed: 02/07/14341 Date of Service: 02/07/14339 Status: Signed Vice President & General Manager [employer]: Jelly Agudelo RN (Registered Nurse) This Rn received message from another staff member that a male named Meño called to the un it stating to be the brother of Shaila Son. I am unable to confirm this with Shaila at this time due to her altered mental status. He left a phone number of [phone]. onver miriam Transaction, Provider Unknown - 02/07/2014 1:51 AM PDT Progress Notes by Vandana Mcnally RPH at 02/07/14150 Author: Vandana Mcnally RPH Service: (none) Author Type: Pharmacist Filed: 02/07/14150 Date of Service: 02/07/14150 Status: Signed Vice President & General Manager [employer]: Vandana Mcnally RPH (Pharmacist) Clinical Pharmacy Note: Renal Monitoring & Extended Interval Zosyn Dosing Shaila Son 43 y.o. female Height: 170.2 cm Weight: 68.9 kg Serum Creatinine: 0.6 mg/dL (from [facility]) Estimated creatinine clearance - Cockcroft-Gault CrCl: 126 mL/min. NEUTROPHILS ABS Date Value Range Status 03/28/2013 3.8 1.9 - 7.4 K/uL Final Pharmacy dosing for renal function per Dr. Raines. Will begin Zosyn with loading dose of 4.5 g IV over 30 min, then 2 hours later 3.375 g IV Q 8H (each 3.375 g dose to be infused over 4 hours). Currently there are no medications needing to be renally adjusted. Pharmacy will continue t o monitor for changes in medication orders and in renal function and adjust accordingly per P & T committee. Vandana Mcnally PharmKenzie 02/07/2014 1:51 AM docume nted in this encounter H&P Notes Deonte Morales MD - 02/06/2014 11:41 PM PDTFormatting of this note might be diffe rent from the original. H&P by Deonte Morales MD at 02/06/14 034 Author: Deonte Morales MD Service: Hospitalist Author Type: Physician Filed: 02/07/14 0006 Date of Service: 02/06/142340 Status: Signed Vice President & General Manager [employer]: Deonte Morales MD (Physician) [facility] Service: Hospitalist Admission History & Physical Date of Admission: 02/06/2014 Requesting Physician: Dr Baptiste, Emergency Department Reason for Admission: Seizure / transfer from [facility] History Obtained From: patient CHIEF COMPLAINT: Seizure HISTORY OF PRESENT ILLNESS The patient is a 43 y.o. female with significant past medical history of Alcohol abuse and dependence, hx of withdrawal seizures, cirrhosis, hypertension who presents with Seizures Patient with a history of alcohol abuse and dependence. Per patient she drinks no daily ba sis, sixpack of beer. Last time she drank alcohol was 3-5 days ago. She refers that the la st thing she remembers is that she was going to eat out. Then she recover consciousness whe n she was in the hospital. Per records the patient had 2 seizures generalized tonic-clonic. She did receive a total of 3 mg of IV Ativan. Due to the multiple comorbidities the patie nt was subsequently transferred to [facility] for further assessment and treatment. Patient refers positive dysuria and urinary frequency. In the ED at [facility] positive fever with a MAXIMUM TEMPERATURE of 102.2 Fahrenheit. Denies any nausea vomiting, diarrhea, abdom inal pain. Does refers some mild cough but no sputum production. EKG sinus tachycardia but no acute ST changes. At this point the patient will be admitted under the hospital service for further assessmen t and treatment REVIEW OF SYSTEMS Review of Systems Constitutional: Positive for fever, diaphoresis and fatigue. Negative for chills. HENT: Negative for neck pain and neck stiffness. Respiratory: Negative for apnea, cough, choking, shortness of breath and wheezing. Cardiovascular: Negative for chest pain, palpitations and leg swelling. Gastrointestinal: Positive for abdominal distention. Negative for nausea, vomiting, abdomin al pain and diarrhea. Genitourinary: Positive for dysuria and frequency. Negative for difficulty urinating. Musculoskeletal: Positive for back pain. Negative for arthralgias. Neurological: Positive for seizures and headaches. Negative for dizziness and light-headedn ess. Psychiatric/Behavioral: Negative for confusion and agitation. Past Medical History Diagnosis Date Hemorrhage of gastrointestinal tract, unspecified Liver disease Hypertension Anemia Past Surgical History Procedure Laterality Date Esophagogastroduodenoscopy 07/30/2011 Procedure: ESOPHAGOGASTRODUODENOSCOPY; Surgeon: Mitchell Setwart IV, MD; Location: [facility]; Service: Gastroenterology; Laterality: N/A; anesthesia assist if available since may be difficult to sedate Hx of tracheostomy Immunizations: Influenza: Pneumoccocal: Allergies Allergen Reactions Ciprofloxacin Other (See Comments) Pt. Unable to recall, this information came from [facility] record Ibuprofen Other (See Comments) Pt. Unable to recall, this information came from [facility] record (Not in a hospital admission) History reviewed. No pertinent family history. History Social History Marital Status: Single Spouse Name: N/A Number of Children: N/A Years of Education: N/A Occupational History Not on file. Social History Main Topics Smoking status: Current Every Day Smoker Smokeless tobacco: Not on file Alcohol Use: 3.6 oz/week 6 Cans of beer per week Drug Use: Yes Special: Marijuana Sexually Active: Not on file Other Topics Concern Not on file Social History Narrative PHYSICAL EXAM Vital Signs: BP 136/78 | Pulse 122 | Temp(Src) 101.5 F (38.6 C) (Oral) | Resp 14 | Ht 1.702 m (5' 7. 01") | Wt 63.504 kg (140 lb) | BMI 21.92 kg/m2 | SpO2 99% Physical Exam Constitutional: She is oriented to person, place, and time. She appears well-developed. HENT: Head: Normocephalic and atraumatic. Eyes: EOM are normal. Pupils are equal, round, and reactive to light. Neck: Neck supple. Cardiovascular: Normal rate, regular rhythm and normal heart sounds. Exam reveals no vasques p and no friction rub. No murmur heard. Pulmonary/Chest: Effort normal. Abdominal: Soft. She exhibits distension and ascites. She exhibits no mass. There is no ten derness. There is no rigidity, no rebound and no guarding. No hernia. Musculoskeletal: She exhibits no edema. Neurological: She is alert and oriented to person, place, and time. Negative kernig and negative brudzinsky DATA [facility] with no acute ST changes CBC with a white blood cell count of 5, hemoglobin of 10.5, hematocrit of 30.1, platelet co unt of 50 INR 1.3 Urinalysis with positive bacteria 4+, protein 500, negative leukocyte esterase and negative nitrates BMP with a glucose of 110, creatinine of 0.60, GFR of 110 Sodium of 133, potassium 3.3, chloride 102, calcium of 8, magnesium 1.6, albumin 2.2, total bilirubin of 1.2, AST of 92, ALT of 23, alkaline phosphatase of 152, lipase of 34, ammonia of 69 Urine drug screen negative, alcohol less than 10 PROBLEM LIST Principal Problem: Seizure disorder, secondary Active Problems: Thrombocytopenia, unspecified Anemia Hepatic encephalopathy Alcohol dependence Fever, unspecified ASSESSMENT & PLAN Impression Patient of 43-year-old female with a significant past medical history of alcohol abuse and dependence, cirrhosis with portal hypertension, ascites, history of withdrawal seizure who c omes to the ED as a transfer from [facility] with seizures, fever. Assessment -Seizures. History and physical consistent with alcohol withdrawal. Negative signs of men ingismus. Will rule out central nervous system bleeding or masses. -Alcohol abuse and dependence history. -Alcohol withdrawal -Fever. History is consistent with UTI, but will rule out SBP, aspiration pneumonia. -Encephalopathy. Currently more alert and oriented. Differential includes hepatic encepha lopathy, medication induced (Ativan due to seizures) -Thrombocytopenia. Probably alcohol related, hypersplenism from portal hypertension -Anemia. with no current signs of bleeding.Probably of chronic disease, alcohol related Plan Will admit to the medical floor Low-dose Lasix with the spironolactone Lactulose with a goal to have 3 bowel movements Electrolyte replacement therapy CIWA per protocol Fall precautions, seizure precautions Ativan when necessary for seizures Ativan daily at bedtime for the next 3 nights Oxygen to keep saturation more than 90% UA, urine culture, blood cultures 2 Chest x-ray CT of the head Paracentesis, diagnostic IV Zosyn. Further antibiotic titration pending culture results IV albumin today and in the third day DVT GI prophylaxis. SCD only due to bleeding risk CODE STATUS full code Disposition: Inpatient. Full code Code Status: Prior Primary Care Physician: Efra Morales MD 02/06/2014 documented i n this encounter Consult Notes Conversion Transaction, Provider Unknown - 02/11/2014 11:12 AM PSTFormatting of this note m ight be different from the original. Consults by Loni Verma RD at 02/11/141111 Author: Loni Verma RD Service: (none) Author Type: Registered Dietitian Filed: 02/11/141117 Date of Service: 02/11/141111 Status: Signed Vice President & General Manager [employer]: Loni Verma RD (Registered Dietitian) Consult Orders: 1. Inpatient consult to Dietary [[id number]] ordered by Micki Redding MD at 02/11 8926 Nutrition Assessment and Recommendations Assessment: Nutritionally pertinent labs:Mg low, on replacement protocol. Phos elevated. Nutrition-focused physical findings:Pt able to feed self now, but needs help with meal set- up. Current intake:Pt reports she has been eating most of her meals now. On house diet, food c oming cut up. Has not been drinking health shakes coming with meals. Prefers chocolate mil k and juice with meals. Nutrition Diagnosis: Inadequate intake related to decreased ability to consume sufficient energy as evidenced by hx of poor po intake at home, chronic alcohol abuse and increased nutrient needs. Intervention: Continue house diet Stop health shakes with meals Add chocolate milk and juice with meals per pt request. Monitoring: Will follow up in five days or as indicated. docume nted in this encounter ED Notes Conversion Transaction, Provider Unknown - 02/07/2014 12:26 AM PDTFormatting of this note m ight be different from the original. ED Notes by Scott Kilgore RN at 02/07/1425 Author: Scott Kilgore RN Service: (none) Author Type: Registered Nurse Filed: 02/07/1425 Date of Service: 02/07/1425 Status: Signed Vice President & General Manager [employer]: Scott Kilgore RN (Registered Nurse) Urine collected and sent to lab. Scott Kilgore RN 02/07/1425 onver miriam Transaction, Provider Unknown - 02/06/2014 10:46 PM PDT ED Notes by Scott Kilgore RN at 02/06/14 2246 Author: Scott Kilgore RN Service: (none) Author Type: Registered Nurse Filed: 02/06/142245 Date of Service: 02/06/142245 Status: Signed Vice President & General Manager [employer]: Scott Kilgore RN (Registered Nurse) Lab at bedside with pt. Scott Kilgore RN 02/06/142245 onver miriam Transaction, Provider Unknown - 02/06/2014 10:40 PM PDT ED Notes by Scott Kilgore RN at 02/06/142239 Author: Scott Kilgore RN Service: (none) Author Type: Registered Nurse Filed: 02/06/142239 Date of Service: 02/06/142239 Status: Signed Vice President & General Manager [employer]: Scott Kilgore RN (Registered Nurse) Lab called for LARRY OPERATOR, to draw BC x2. Scott Kilgore RN 02/06/142239 Jakub Munguia DO - 02/06/2014 10:27 PM PDT ED Provider Notes by Jakub Baptiste DO at 02/06/142226 Author: Jakub Baptiste DO Service: Emergency Department Author Type: Physician Filed: 02/07/14 0700 Date of Service: 02/06/142226 Status: Signed Vice President & General Manager [employer]: Jakub Baptiste DO (Physician) Procedure Orders: 1. Critical Care [[id number]] ordered by Jakub Baptiste DO at 02/07/14 0659 [facility] Department of Emergency Medicine 7:00 AM History of Present Illness Patient Identification Shaila Son is a 43 y.o. female. Patient information was obtained from patient and past medical records. History/Exam limitations: none. Patient presented to the Emergency Department by: [facility] Chief Complaint Chief Complaint Patient presents with Alcohol Problem Xfer from [facility] for ETOH withdrawl. Delirium Tremens (DTS) Seizures Fever The patient being transferred from an outside facility due to the fact the patient has suff ered seizures while withdrawing from alcohol. The patient reports that it has been 3 days s misty her last drink of alcohol, per the records from the outside facility the patient has greene d 2 seizures. The patient has been given a total of 3 mg of IV Ativan at this point. The p atient also has multiple other organ dysfunctions related to her chronic alcohol abuse. Car e prior to arrival consisted of evaluation as an outside ED, stabilization and transport her e. Patient does not note anything that she does worsens these issues, she has not found any thing that improves them either. Past Medical History Diagnosis Date Hemorrhage of gastrointestinal tract, unspecified Liver disease Hypertension Anemia Past Surgical History Procedure Laterality Date Esophagogastroduodenoscopy 07/30/2011 Procedure: ESOPHAGOGASTRODUODENOSCOPY; Surgeon: Mitchell Stewart IV, MD; Location: [facility]; Service: Gastroenterology; Laterality: N/A; anesthesia assist if available since may be difficult to sedate Hx of tracheostomy Prior to Admission medications Medication Sig Start Date End Date Taking? Authorizing Provider Vit-Fe Fumarate-FA ( MULTIVITAMIN & MINERALS W IRON/FA) 27-0.8 MG TABS tab let Take 1 tablet by mouth daily. 03/28/13 Precious Miller MD spironolactone (ALDACTONE) 25 MG tablet Take 1 tablet by mouth 2 (two) times daily. 3 03/28/14 Precious Miller MD thiamine 100 MG tablet Take 1 tablet by mouth daily. 03/28/13 03/28/14 Precious Miller MD Allergies Allergen Reactions Ciprofloxacin Other (See Comments) Pt. Unable to recall, this information came from [facility] record Ibuprofen Other (See Comments) Pt. Unable to recall, this information came from [facility] record History Social History Marital Status: Single Spouse Name: N/A Number of Children: N/A Years of Education: N/A Occupational History Not on file. Social History Main Topics Smoking status: Current Every Day Smoker Smokeless tobacco: Not on file Alcohol Use: 3.6 oz/week 6 Cans of beer per week Drug Use: Yes Special: Marijuana Sexually Active: Not on file Other Topics Concern Not on file Social History Narrative History reviewed. No pertinent family history. Review of Systems Review of Systems Constitutional: Negative for fever and chills. Cardiovascular: Negative for chest pain and palpitations. Gastrointestinal: Negative for nausea, vomiting and abdominal pain. Neurological: Positive for seizures. Negative for sensory change and speech change. Psychiatric/Behavioral: Positive for substance abuse. Negative for depression and suicidal ideas. All other systems reviewed and are negative. Physical Exam BP 144/77 | Pulse 121 | Temp(Src) 102.2 F (39 C) (Oral) | Resp 19 | Ht 1.702 m (5' 7.01 ") | Wt 63.504 kg (140 lb) | BMI 21.92 kg/m2 | SpO2 96% Vital signs interpretation: Tachycardic, febrile, otherwise normal Pulse Oximetry interpretation: Normal Gen: Somnolent but arousable to loud voice, ill-appearing, no acute distress Head: Normocephalic, no apparent injury noted Eyes: no conjunctivitis, no scleral icterus Ears: No swelling or erythema, no drainage noted Nose: no rhinorrhea, no epistaxis Mouth: no apparent dysfunction, no gross injury Neck: Supple, no meningismus, no obvious swelling or mass, no nuchal rigidity CV: Tachycardic rate with regular rhythm, no murmurs, rubs or clicks Resp: No respiratory distress, no retractions, lungs CTA bilaterally Abd: Round, no distension Ext: normal ROM of bilateral upper and lower extremities, no joint swelling, no deformitie s Back: normal ROM, no deformity noted Skin: No rash, normal color, warm, dry : Deferred Rect: Deferred Neuro: no focal neurological deficits noted, cerebellum normal as tested, no sensory or mot or deficiencies noted Psych: Flat affect, no emotional distress noted, the patient's mentation is diminished seco ndary to a variety of possible causes Medical Decision Making and Emergency Department Course ED Department Course The patient was transferred here from another facility as this is a higher level of care. Review of the notes there show that the patient had a total of 2 seizures and was given a to karolina of 3 mg of Ativan. After menstruation of the abdomen, the patient stopped seizing. The patient does have a history of alcoholic cirrhosis and ascites. Review of the lab testing also notes that the patient has an elevated ammonia level at 69, the urinalysis did show an elevated WBC with 4+ bacteria however the patient has normal WBCs and the UA was negative fo r leukocyte esterase and nitrates. The patient was afebrile at the outside facility, here s he has a temperature 102.2. Review of the medications provided shows that there is no admin istration of lactulose for the hepatic encephalopathy and no antibiotics were started, I nicole l start both. I will also order blood cultures. I will provide the patient IV Toradol as o pposed to Tylenol to help with her fever due to the patient's history of alcohol cirrhosis. I do not feel that in the light of the patient having a negative CT head, and no physical e xam evidence that is suggestive of an acute meningitis that this patient is suffering from a central nervous system infection and will not perform LP at this time. I will contact the hospitalist team for admission. Differential diagnosis includes but is not limited to: Seps is, hepatic encephalopathy, postictal state, urinary tract infection [address] Raines who agrees with care plan and will see patient in th e ED. Records Reviewed Old medical records. Nursing notes. Laboratory Evaluation Results Procedure Component Value Ref Range Date/Time Urine microscopic only [[id number]] (Abnormal) Collected: 02/06/142335 Order Status: Completed Updated: 02/07/14 0048 WBC 11-15 0 - 5 /hpf RBC 16-25 0 - 5 /hpf EPITHELIAL 26-50 /lpf BACTERIA 4+ (A) NONE SEEN Mucus, UA 2+ Blood culture_set 1 [[id number]] Collected: 02/06/142249 Order Status: Sent Updated: 02/07/1411 Specimen Information: Blood / Blood Blood culture, set 2 [[id number]] Collected: 02/06/142252 Order Status: Sent Updated: 02/07/1411 Specimen Information: Blood / Blood POC clinitek 10 [[id number]] (Abnormal) Collected: 02/06/142334 Order Status: Completed Updated: 02/06/14 2340 Color, UA ORANGE Clarity, UA CLOUDY Glucose, UA NEGATIVE NEGATIVE mg/dL Bilirubin, UA SMALL (A) NEGATIVE Ketones, UA TRACE (A) NEGATIVE mg/dL Spec Grav, UA 1.025 1.001 - 1.035 Blood, UA LARGE (A) NEGATIVE pH, UA 7.0 4.6 - 8.0 Protein, UA >299 (A) NEGATIVE mg/dL Urobilinogen, UA 1.0 <1.1 mg/dL Nitrite, UA NEGATIVE NEGATIVE WBC, UA NEGATIVE NEGATIVE Ammonia level [[id number]] (Abnormal) Collected: 02/06/142252 Order Status: Completed Updated: 02/06/142328 Specimen Information: Blood AMMONIA 53 (H) <33 umol/L I personally reviewed the lab results and they have been posted to the chart. Pertinent po sitive and negative findings have been addressed appropriately. Radiology and EKG Evaluation Imaging Results None ED Diagnoses Final diagnoses Fever Seizure Alcohol abuse UTI (lower urinary tract infection) Hepatic encephalopathy Post-ictal state Disposition: ED Disposition Admit/Observation Bed request special needs: Fall risk Diagnosis?: DT with seizure, hepatic encephalopathy Follow-up Information None Discharge Medications: Current Discharge Medication List Dr. Jakub Baptiste D.O. Dictation software, [employer], used which may contain error for similar sounding words even af ter review. Personal communication requested for any clarification. Procedures Additional Documentation Critical Care Performed by: JAKUB BAPTISTE Authorized by: JAKUB BAPTISTE Total critical care time: 35 minutes Critical care time was exclusive of separately billable procedures and treating other patie nts. Critical care was necessary to treat or prevent imminent or life-threatening deterioration of the following conditions: [employer] SUPER[employer]OR failure or compromise. Critical care was time spent personally by me on the following activities: development of t reatment plan with patient or surrogate, evaluation of patient's response to treatment, exam ination of patient, obtaining history from patient or surrogate, ordering and performing reinaldo atments and interventions, ordering and review of laboratory studies, pulse oximetry, re-dheeraj luation of patient's condition and review of old charts. Jakub Baptiste DO 02/07/14 0700 onversio n Transaction, Provider Unknown - 02/06/2014 10:26 PM PDTFormatting of this note might be di fferent from the original. ED Notes by Grant Ratliff RN at 02/06/142225 Author: Grant Ratliff RN Service: (none) Author Type: Registered Nurse Filed: 02/06/142225 Date of Service: 02/06/142225 Status: Signed Vice President & General Manager [employer]: Grant Ratliff RN (Registered Nurse) Dr Baptiste at bedside with pt. Grant Ratliff RN 02/06/142225 onver miriam Transaction, Provider Unknown - 02/06/2014 10:14 PM PDT ED Notes by Scott Kilgore RN at 02/06/142213 Author: Scott Kilgore RN Service: (none) Author Type: Registered Nurse Filed: 02/06/142213 Date of Service: 02/06/142213 Status: Signed Vice President & General Manager [employer]: Scott Kilgore RN (Registered Nurse) Bed: 03 Expected date: Expected time: Means of arrival: Comments: onver miriam Transaction, Provider Unknown - 02/06/2014 9:48 PM PDT ED Notes by Jose Carlos Anderson RN at 02/06/142147 Author: Jose Carlos Anderson RN Service: (none) Author Type: Registered Nurse Filed: 02/06/142150 Date of Service: 02/06/142147 Status: Signed Vice President & General Manager [employer]: Jose Carlos Anderson RN (Registered Nurse) Pt is a transfer from [facility] for ETOH withdrawal and seizures. Pt has Hx ETOH abuse , seizures, anemia, and cirhossis. Pt has not had ETOH for three days and had seizures at h ome. Pt was given Ativan and zofran at [facility], no seizures at [facility] Pt is u nsteady on feet, has tremors, and is slow to respond. Jose Carlos Anderson RN 02/06/142150 docume nted in this encounter Miscellaneous Notes Plan of Care - Conversion Transaction, Provider Unknown - 02/10/2014 3:08 AM PST Plan of Care by Yamileth Mcnally RN at 02/10/14307 Author: Yamileth Mcnally RN Service: (none) Author Type: Registered Nurse Filed: 02/10/14307 Date of Service: 02/10/14307 Status: Signed Vice President & General Manager [employer]: Yamileth Mcnally RN (Registered Nurse) Problem: Defensive Coping Goal: Discusses and identifies healthy coping skills Outcome: Not Progressing lan o f Care - Conversion Transaction, Provider Unknown - 02/09/2014 1:10 PM PSTFormatting of thi s note might be different from the original. Plan of Care by Alice Varma RN at 02/09/14 1310 Author: Alice Varma RN Service: (none) Author Type: Registered Nurse Filed: 02/09/141312 Date of Service: 02/09/141309 Status: Signed Vice President & General Manager [employer]: Alice Varma RN (Registered Nurse) No seizure activity noted this shift. Seizure precautions maintained. Will monitor. lan o f Care - Conversion Transaction, Provider Unknown - 02/08/2014 7:38 AM PSTFormatting of thi s note might be different from the original. Plan of Care by Elida Gamble RN at 02/08/14737 Author: Elida Gamble RN Service: (none) Author Type: Registered Nurse Filed: 02/08/14737 Date of Service: 02/08/14737 Status: Signed Vice President & General Manager [employer]: Elida Gamble RN (Registered Nurse) Problem: RISK FOR INJURY-SEIZURES Goal: Remain injury free-seizures Outcome: Progressing Continue CIWA protocol and give medications, will remain free of seizures docume nted in this encounter Plan of Treatment Not on filedocumented as of this encounter Procedures + +--------+ + + + | Procedure Name | Priori | Date/Time | Associated Diagnosis | Comments | | | ty | | | | + +--------+ + + + | MAGNESIUM | Routin | 02/13/2014 | | Results for this | | | e | 11:38 AM | | procedure are in the | | | | PST | | results section. | + +--------+ + + + | EXTERNAL LAB: CBC | Routin | 02/13/2014 | | Results for this | | | e | 5:35 AM | | procedure are in the | | | | PST | | results section. | + +--------+ + + + | MAGNESIUM | Routin | 02/13/2014 | | Results for this | | | e | 5:35 AM | | procedure are in the | | | | PST | | results section. | + +--------+ + + + | COMPREHENSIVE | Routin | 02/13/2014 | | Results for this | | METABOLIC PANEL | e | 5:35 AM | | procedure are in the | | | | PST | | results section. | + +--------+ + + + | MAGNESIUM | Routin | 02/12/2014 | | Results for this | | | e | 2:48 PM | | procedure are in the | | | | PST | | results section. | + +--------+ + + + | EXTERNAL LAB: CBC | Routin | 02/12/2014 | | Results for this | | | e | 5:31 AM | | procedure are in the | | | | PST | | results section. | + +--------+ + + + | PHOSPHORUS | Routin | 02/12/2014 | | Results for this | | | e | 5:31 AM | | procedure are in the | | | | PST | | results section. | + +--------+ + + + | MAGNESIUM | Routin | 02/12/2014 | | Results for this | | | e | 5:31 AM | | procedure are in the | | | | PST | | results section. | + +--------+ + + + | COMPREHENSIVE | Routin | 02/12/2014 | | Results for this | | METABOLIC PANEL | e | 5:31 AM | | procedure are in the | | | | PST | | results section. | + +--------+ + + + | MAGNESIUM | Routin | 02/11/2014 | | Results for this | | | e | 9:27 AM | | procedure are in the | | | | PST | | results section. | + +--------+ + + + | VITAMIN B-12 | Routin | 02/11/2014 | | Results for this | | | e | 7:22 AM | | procedure are in the | | | | PST | | results section. | + +--------+ + + + | FOLATE | Routin | 02/11/2014 | | Results for this | | | e | 7:22 AM | | procedure are in the | | | | PST | | results section. | + +--------+ + + + | EXTERNAL LAB: CBC | Routin | 02/11/2014 | | Results for this | | | e | 5:35 AM | | procedure are in the | | | | PST | | results section. | + +--------+ + + + | IRON AND IRON | Routin | 02/11/2014 | | Results for this | | BINDING CAPACITY | e | 5:35 AM | | procedure are in the | | | | PST | | results section. | + +--------+ + + + | PHOSPHORUS | Routin | 02/11/2014 | | Results for this | | | e | 5:35 AM | | procedure are in the | | | | PST | | results section. | + +--------+ + + + | MAGNESIUM | Routin | 02/11/2014 | | Results for this | | | e | 5:35 AM | | procedure are in the | | | | PST | | results section. | + +--------+ + + + | FERRITIN | Routin | 02/11/2014 | | Results for this | | | e | 5:35 AM | | procedure are in the | | | | PST | | results section. | + +--------+ + + + | COMPREHENSIVE | Routin | 02/11/2014 | | Results for this | | METABOLIC PANEL | e | 5:35 AM | | procedure are in the | | | | PST | | results section. | + +--------+ + + + | POTASSIUM | Routin | 02/10/2014 | | Results for this | | | e | 5:45 PM | | procedure are in the | | | | PST | | results section. | + +--------+ + + + | MAGNESIUM | Routin | 02/10/2014 | | Results for this | | | e | 5:45 PM | | procedure are in the | | | | PST | | results section. | + +--------+ + + + | ECHO COMPLETE | Routin | 02/10/2014 | | Results for this | | | e | 6:46 AM | | procedure are in the | | | | PST | | results section. | + +--------+ + + + | EXTERNAL LAB: CBC | Routin | 02/10/2014 | | Results for this | | | e | 5:49 AM | | procedure are in the | | | | PST | | results section. | + +--------+ + + + | PHOSPHORUS | Routin | 02/10/2014 | | Results for this | | | e | 5:49 AM | | procedure are in the | | | | PST | | results section. | + +--------+ + + + | MAGNESIUM | Routin | 02/10/2014 | | Results for this | | | e | 5:49 AM | | procedure are in the | | | | PST | | results section. | + +--------+ + + + | COMPREHENSIVE | Routin | 02/10/2014 | | Results for this | | METABOLIC PANEL | e | 5:49 AM | | procedure are in the | | | | PST | | results section. | + +--------+ + + + | HISTORICAL | Timed | 02/09/2014 | | Results for this | | MICROBIOLOGY RESULT | | 7:38 PM | | procedure are in the | | | | PST | | results section. | + +--------+ + + + | OSMOLALITY, URINE | Routin | 02/09/2014 | | Results for this | | | e | 1:03 PM | | procedure are in the | | | | PST | | results section. | + +--------+ + + + | SODIUM, URINE, | Routin | 02/09/2014 | | Results for this | | RANDOM | e | 1:00 PM | | procedure are in the | | | | PST | | results section. | + +--------+ + + + | XR CHEST 1 VIEW | Routin | 02/09/2014 | | Results for this | | | e | 9:35 AM | | procedure are in the | | | | PST | | results section. | + +--------+ + + + | EXTERNAL LAB: CBC | Routin | 02/09/2014 | | Results for this | | | e | 5:18 AM | | procedure are in the | | | | PST | | results section. | + +--------+ + + + | PHOSPHORUS | Routin | 02/09/2014 | | Results for this | | | e | 5:18 AM | | procedure are in the | | | | PST | | results section. | + +--------+ + + + | OSMOLALITY, SERUM | Routin | 02/09/2014 | | Results for this | | | e | 5:18 AM | | procedure are in the | | | | PST | | results section. | + +--------+ + + + | MAGNESIUM | Routin | 02/09/2014 | | Results for this | | | e | 5:18 AM | | procedure are in the | | | | PST | | results section. | + +--------+ + + + | AMMONIA | Routin | 02/09/2014 | | Results for this | | | e | 5:18 AM | | procedure are in the | | | | PST | | results section. | + +--------+ + + + | COMPREHENSIVE | Routin | 02/09/2014 | | Results for this | | METABOLIC PANEL | e | 5:18 AM | | procedure are in the | | | | PST | | results section. | + +--------+ + + + | PHOSPHORUS | Routin | 02/08/2014 | | Results for this | | | e | 10:52 PM | | procedure are in the | | | | PST | | results section. | + +--------+ + + + | MAGNESIUM | Routin | 02/08/2014 | | Results for this | | | e | 10:52 PM | | procedure are in the | | | | PST | | results section. | + +--------+ + + + | EXTERNAL LAB: CBC | Routin | 02/08/2014 | | Results for this | | | e | 5:40 AM | | procedure are in the | | | | PST | | results section. | + +--------+ + + + | PHOSPHORUS | Routin | 02/08/2014 | | Results for this | | | e | 5:40 AM | | procedure are in the | | | | PST | | results section. | + +--------+ + + + | MAGNESIUM | Routin | 02/08/2014 | | Results for this | | | e | 5:40 AM | | procedure are in the | | | | PST | | results section. | + +--------+ + + + | AMMONIA | Routin | 02/08/2014 | | Results for this | | | e | 5:40 AM | | procedure are in the | | | | PST | | results section. | + +--------+ + + + | BASIC METABOLIC | Routin | 02/08/2014 | | Results for this | | PANEL | e | 5:40 AM | | procedure are in the | | | | PST | | results section. | + +--------+ + + + | POTASSIUM | Routin | 02/07/2014 | | Results for this | | | e | 6:24 PM | | procedure are in the | | | | PDT | | results section. | + +--------+ + + + | MAGNESIUM | Routin | 02/07/2014 | | Results for this | | | e | 6:24 PM | | procedure are in the | | | | PDT | | results section. | + +--------+ + + + | XR CHEST 2 VIEWS | Routin | 02/07/2014 | | Results for this | | | e | 8:00 AM | | procedure are in the | | | | PDT | | results section. | + +--------+ + + + | EXTERNAL LAB: CBC | Routin | 02/07/2014 | | Results for this | | | e | 7:30 AM | | procedure are in the | | | | PDT | | results section. | + +--------+ + + + | TSH | Routin | 02/07/2014 | | Results for this | | | e | 6:30 AM | | procedure are in the | | | | PDT | | results section. | + +--------+ + + + | PHOSPHORUS | Routin | 02/07/2014 | | Results for this | | | e | 6:30 AM | | procedure are in the | | | | PDT | | results section. | + +--------+ + + + | MAGNESIUM | Routin | 02/07/2014 | | Results for this | | | e | 6:30 AM | | procedure are in the | | | | PDT | | results section. | + +--------+ + + + | LACTATE | Routin | 02/07/2014 | | Results for this | | DEHYDROGENASE | e | 6:30 AM | | procedure are in the | | | | PDT | | results section. | + +--------+ + + + | HEMOGLOBIN A1C | Routin | 02/07/2014 | | Results for this | | | e | 6:30 AM | | procedure are in the | | | | PDT | | results section. | + +--------+ + + + | BILIRUBIN, DIRECT | Routin | 02/07/2014 | | Results for this | | | e | 6:30 AM | | procedure are in the | | | | PDT | | results section. | + +--------+ + + + | COMPREHENSIVE | Routin | 02/07/2014 | | Results for this | | METABOLIC PANEL | e | 6:30 AM | | procedure are in the | | | | PDT | | results section. | + +--------+ + + + | CT HEAD WO CONTRAST | Routin | 02/07/2014 | | Results for this | | | e | 2:51 AM | | procedure are in the | | | | PDT | | results section. | + +--------+ + + + | URINALYSIS WITH | Routin | 02/06/2014 | | Results for this | | MICROSCOPIC IF | e | 11:36 PM | | procedure are in the | | INDICATED | | PDT | | results section. | + +--------+ + + + | URINALYSIS, | Routin | 02/06/2014 | | Results for this | | MICROSCOPIC ONLY | e | 11:36 PM | | procedure are in the | | | | PDT | | results section. | + +--------+ + + + | CULTURE, URINE | Timed | 02/06/2014 | | Results for this | | | | 11:36 PM | | procedure are in the | | | | PDT | | results section. | + +--------+ + + + | CULTURE, BLOOD, 2ND | Routin | 02/06/2014 | | Results for this | | SPECIMEN (NON-ORD) | e | 10:53 PM | | procedure are in the | | | | PDT | | results section. | + +--------+ + + + | AMMONIA | Routin | 02/06/2014 | | Results for this | | | e | 10:53 PM | | procedure are in the | | | | PDT | | results section. | + +--------+ + + + | CULTURE, BLOOD | Routin | 02/06/2014 | | Results for this | | | e | 10:50 PM | | procedure are in the | | | | PDT | | results section. | + +--------+ + + + documented in this encounter Results Magnesium (02/13/2014 11:38 AM PST) + + + + + + | Component | Value | Ref Range | Performed | Pathologist | | | | | At | Signature | + + + + + + | Magnesium | 1.5 (L)Comment: Testing | 1.7 - 2.4 mg/dL | EXTERNAL | | | | performed at [facility] | | LAB | | | | [address];[place], [place] | | | | | | [address] | | | | + + + + + + + + | Specimen | + + | Blood specimen | | (specimen) | + + + +---------+ + + | Performing | Address | City/State/Zipcode | Phone Number | | Organization | | | | + +---------+ + + | EXTERNAL LAB | | | | + +---------+ + + External Lab: CBC (02/13/2014 5:35 AM PST) + + + + + + | Component | Value | Ref Range | Performed | Pathologist | | | | | At | Signature | + + + + + + | WBC | 3.7 (L)Comment: Testing | 3.8 - 11.0 K/uL | EXTERNAL | | | | performed at [facility] | | LAB | | | | [address];[place] | | | | | | [address] | | | | + + + + + + | Non- | 2.75 (L)Comment: Testing | 3.70 - 5.10 | EXTERNAL | | | Red Blood | performed at [facility] | M/uL | LAB | | | Cells | [address];[place] | | | | | Counted | [id number] | | | | + + + + + + | Hemoglobin | 8.5 (L)Comment: Testing | 11.3 - 15.5 | EXTERNAL | | | | performed at [facility] | g/dL | LAB | | | | [address];[place] | | | | | | [address] | | | | + + + + + + | Hematocrit, | 25.3 (L)Comment: Testing | 34.0 - 46.0 % | EXTERNAL | | | POC | performed at [facility];[address] | | LAB | | | | [address];[place] | | | | | | [address] | | | | + + + + + + | MCV | 92.0Comment: Testing | 80.0 - 100.0 fl | EXTERNAL | | | | performed at [facility];[address] | | LAB | | | | [address];[place] | | | | | | [address] | | | | + + + + + + | MCH | 31.0Comment: Testing | 27.0 - 34.0 pg | EXTERNAL | | | | performed at [facility];[address] | | LAB | | | | [address];[place] | | | | | | [address] | | | | + + + + + + | MCHC | 33.6Comment: Testing | 32.0 - 35.5 | EXTERNAL | | | | performed at [facility];[address] | g/dL | LAB | | | | [address];[place] | | | | | | [address] | | | | + + + + + + | RDW-CV | 58.2 (H)Comment: Testing | 37 - 53 fl | EXTERNAL | | | | performed at [facility];[address] | | LAB | | | | [address];[place] | | | | | | [address] | | | | + + + + + + | Platelet | 101 (L)Comment: Testing | 150 - 400 K/uL | EXTERNAL | | | Count | performed at [facility];[address] | | LAB | | | Plasma | [address];[place] | | | | | | [address] | | | | + + + + + + | MPV | 8.3Comment: Testing | fl | EXTERNAL | | | | performed at [facility];[address] | | LAB | | | | [address];[place] | | | | | | [address] | | | | + + + + + + | Differentia | AUTOMATEDComment: | | EXTERNAL | | | l Type | Testing performed at | | LAB | | | | [facility];[address];[place] [address] | | | | + + + + + + | % Segmented | 50.8Comment: Testing | % | EXTERNAL | | | | performed at [facility];[address] | | LAB | | | Neutrophils | [address];[place] | | | | | | [address] | | | | + + + + + + | % | 16.5Comment: Testing | % | EXTERNAL | | | Lymphocytes | performed at [facility];[address] | | LAB | | | | [address];[place] | | | | | | [address] | | | | + + + + + + | % Monocytes | 25.0Comment: Testing | % | EXTERNAL | | | | performed at [facility];[address] | | LAB | | | | [address];[place] | | | | | | [address] | | | | + + + + + + | % | 4.5Comment: Testing | % | EXTERNAL | | | Eosinophils | performed at [facility];[address] | | LAB | | | | [address];[place] | | | | | | [address] | | | | + + + + + + | % Basophils | 3.2Comment: Testing | % | EXTERNAL | | | | performed at [facility];[address] | | LAB | | | | [address];[place] | | | | | | [address] | | | | + + + + + + | Absolute | 1.9Comment: Testing | 1.9 - 7.4 K/uL | EXTERNAL | | | Segmented | performed at [facility];[address] | | LAB | | | Neutrophils | [address];[place] | | | | | | [address] | | | | + + + + + + | Absolute | 0.6 (L)Comment: Testing | 1.0 - 3.9 K/uL | EXTERNAL | | | Lymphocytes | performed at [facility] [place] | | LAB | | | | [address];[place] | | | | | | [address] | | | | + + + + + + | Absolute | 0.9 (H)Comment: Testing | 0 - 0.8 K/uL | EXTERNAL | | | Monocytes | performed at [facility] [place] | | LAB | | | | [address];[place] | | | | | | [address] | | | | + + + + + + | Absolute | 0.2Comment: Testing | 0 - 0.5 K/uL | EXTERNAL | | | Eosinophils | performed at [facility] [place] | | LAB | | | | [address];[place] | | | | | | [address] | | | | + + + + + + | Absolute | 0.1Comment: Testing | 0 - 0.1 K/uL | EXTERNAL | | | Basophils | performed at [facility] [place] | | LAB | | | | [address];[place] | | | | | | [address] | | | | + + + + + + | RBC | 1+Comment: ANISONORMAL | | EXTERNAL | | | Morphology | PLT MORPHTesting | | LAB | | | | performed at [facility] [place];[address] | | | | | | [address];[place] | | | | | | [address] | | | | | | | | | | + + + + + + + + | Specimen | + + | Blood specimen | | (specimen) | + + + +---------+ + + | Performing | Address | City/State/Zipcode | Phone Number | | Organization | | | | + +---------+ + + | EXTERNAL LAB | | | | + +---------+ + + Magnesium (02/13/2014 5:35 AM PST) + + + + + + | Component | Value | Ref Range | Performed | Pathologist | | | | | At | Signature | + + + + + + | Magnesium | 1.0 (L)Comment: Testing | 1.7 - 2.4 mg/dL | EXTERNAL | | | | performed at [facility], [address] | | LAB | | | | [address], | | | | | | [place] [address] | | | | + + + + + + + + | Specimen | + + | Blood specimen | | (specimen) | + + + +---------+ + + | Performing | Address | City/State/Zipcode | Phone Number | | Organization | | | | + +---------+ + + | EXTERNAL LAB | | | | + +---------+ + + Comprehensive Metabolic Panel (02/13/2014 5:35 AM PST) + + + + + + | Component | Value | Ref Range | Performed | Pathologist | | | | | At | Signature | + + + + + + | Na | 132 (L)Comment: Testing | 135 - 143 | EXTERNAL | | | | performed at [facility], [address] | mmol/L | LAB | | | | [address], | | | | | | [place] [address] | | | | + + + + + + | K | 4.1Comment: Testing | 3.5 - 4.9 | EXTERNAL | | | | performed at [facility], [address] | mmol/L | LAB | | | | [address], | | | | | | [place] [address] | | | | + + + + + + | Cl | 105Comment: Testing | 99 - 109 mmol/L | EXTERNAL | | | | performed at [facility], [address] | | LAB | | | | [address], | | | | | | [place] [address] | | | | + + + + + + | CO2 | 25Comment: Testing | 23 - 32 mmol/L | EXTERNAL | | | | performed at [facility], [address] | | LAB | | | | [address], | | | | | | [place] [address] | | | | + + + + + + | Anion Gap | 6Comment: Testing | 5 - 20 mmol/L | EXTERNAL | | | | performed at [facility], [address] | | LAB | | | | [address], | | | | | | [place] [address] | | | | + + + + + + | Glucose, | 95Comment: Testing | 65 - 99 mg/dL | EXTERNAL | | | Fasting | performed at [facility], [address] | | LAB | | | | [address], | | | | | | [place] [address] | | | | + + + + + + | BUN | 9Comment: Testing | 8 - 25 mg/dL | EXTERNAL | | | | performed at [facility], [address] | | LAB | | | | [address], | | | | | | [place] [address] | | | | + + + + + + | Creatinine | 0.53Comment: Testing | 0.50 - 1.00 | EXTERNAL | | | | performed at [facility], [address] | mg/dL | LAB | | | | [address], | | | | | | [place] [address] | | | | + + + + + + | BUN/Creatin | 17Comment: Testing | | EXTERNAL | | | ine Ratio | performed at [facility], [address] | | LAB | | | | [address], | | | | | | [place] [address] | | | | + + + + + + | Calcium | 8.6Comment: Testing | 8.5 - 10.2 | EXTERNAL | | | | performed at [facility], [address] | mg/dL | LAB | | | | [address], | | | | | | [place] [address] | | | | + + + + + + | Protein, | 5.4 (L)Comment: Testing | 6.3 - 8.2 g/dL | EXTERNAL | | | Total | performed at [facility], [address] | | LAB | | | | [address], | | | | | | [place] [address] | | | | + + + + + + | Albumin | 2.1 (L)Comment: Testing | 3.6 - 5.0 g/dL | EXTERNAL | | | | performed at [facility], [address] | | LAB | | | | [address], | | | | | | [place] [address] | | | | + + + + + + | Globulin | 3.3Comment: Testing | 1.3 - 4.9 g/dL | EXTERNAL | | | | performed at [facility], [address] | | LAB | | | | [address], | | | | | | [place] [address] | | | | + + + + + + | A/G Ratio | 0.6 (L)Comment: Testing | 1.0 - 2.4 | EXTERNAL | | | | performed at [facility], [address] | | LAB | | | | [address], | | | | | | [place], [place] [address] | | | | + + + + + + | Bilirubin | 0.7Comment: Testing | 0.1 - 1.5 mg/dL | EXTERNAL | | | Total | performed at [facility], [address] | | LAB | | | | [address], | | | | | | [place] [address] | | | | + + + + + + | ALP, | 129 (H)Comment: Testing | 35 - 115 U/L | EXTERNAL | | | External | performed at [facility], [address] | | LAB | | | | [address], | | | | | | [place] [address] | | | | + + + + + + | AST | 37Comment: Testing | 10 - 45 U/L | EXTERNAL | | | | performed at [facility], [address] | | LAB | | | | [address], | | | | | | [place] [address] | | | | + + + + + + | ALT | 13Comment: Testing | 10 - 65 U/L | EXTERNAL | | | | performed at [facility], [address] | | LAB | | | | [facility], | | | | | | [place] [address] | | | | + + + + + + | Estimated | >60Comment: GFR <60: | mL/min/1.73m2 | EXTERNAL | | | GFR | CHRONIC KIDNEY DISEASE, | | LAB | | | | IF FOUND OVER A 3 MONTH | | | | | | PERIOD.GFR <15: KIDNEY | | | | | | FAILURE.FOR | | | | | | AMERICANS, MULTIPLY THE | | | | | | CALCULATED GFR BY | | | | | | 1.210.Testing performed | | | | | | at [facility], [address] | | | | | | [facility], | | | | | | [place] [address] | | | | + + + + + + + + | Specimen | + + | Blood specimen | | (specimen) | + + + +---------+ + + | Performing | Address | City/State/Zipcode | Phone Number | | Organization | | | | + +---------+ + + | EXTERNAL LAB | | | | + +---------+ + + Magnesium (02/12/2014 2:48 PM PST) + + + + + + | Component | Value | Ref Range | Performed | Pathologist | | | | | At | Signature | + + + + + + | Magnesium | 1.8Comment: Testing | 1.7 - 2.4 mg/dL | EXTERNAL | | | | performed at [facility] [place];[address] | | LAB | | | | [address];[place], [place] | | | | | | [address] | | | | + + + + + + + + | Specimen | + + | Blood specimen | | (specimen) | + + + +---------+ + + | Performing | Address | City/State/Zipcode | Phone Number | | Organization | | | | + +---------+ + + | EXTERNAL LAB | | | | + +---------+ + + External Lab: CBC (02/12/2014 5:31 AM PST) + + + + + + | Component | Value | Ref Range | Performed | Pathologist | | | | | At | Signature | + + + + + + | WBC | 3.2 (L)Comment: Testing | 3.8 - 11.0 K/uL | EXTERNAL | | | | performed at [facility], [address] | | LAB | | | | [address], | | | | | | [place] [address] | | | | + + + + + + | Non- | 2.96 (L)Comment: Testing | 3.70 - 5.10 | EXTERNAL | | | Red Blood | performed at [facility], [address] | [address]/uL | LAB | | | Cells | [address], | | | | | Counted | [place] [address] | | | | + + + + + + | Hemoglobin | 9.3 (L)Comment: Testing | 11.3 - 15.5 | EXTERNAL | | | | performed at [facility], [address] | g/dL | LAB | | | | [address], | | | | | | [place] [address] | | | | + + + + + + | Hematocrit, | 27.6 (L)Comment: Testing | 34.0 - 46.0 % | EXTERNAL | | | POC | performed at [facility], [address] | | LAB | | | | [address], | | | | | | [place] [address] | | | | + + + + + + | MCV | 93.4Comment: Testing | 80.0 - 100.0 fl | EXTERNAL | | | | performed at [facility], [address] | | LAB | | | | [address], | | | | | | [place] [address] | | | | + + + + + + | MCH | 31.3Comment: Testing | 27.0 - 34.0 pg | EXTERNAL | | | | performed at [facility], [address] | | LAB | | | | [address], | | | | | | [place] [address] | | | | + + + + + + | MCHC | 33.5Comment: Testing | 32.0 - 35.5 | EXTERNAL | | | | performed at [facility], [address] | g/dL | LAB | | | | [address], | | | | | | [place] [address] | | | | + + + + + + | RDW-CV | 57.8 (H)Comment: Testing | 37 - 53 fl | EXTERNAL | | | | performed at [facility], [address] | | LAB | | | | [address], | | | | | | [place] [address] | | | | + + + + + + | Platelet | 91 (L)Comment: Testing | 150 - 400 K/uL | EXTERNAL | | | Count | performed at [facility], [address] | | LAB | | | Plasma | [address], | | | | | | [place] [address] | | | | + + + + + + | MPV | 8.5Comment: Testing | fl | EXTERNAL | | | | performed at [facility], [address] | | LAB | | | | [address], | | | | | | [place] [address] | | | | + + + + + + | Differentia | AUTOMATEDComment: | | EXTERNAL | | | l Type | Testing performed at | | LAB | | | | [facility], [address] | | | | | | [place] | | | | | | [address] | | | | + + + + + + | % Segmented | 46.3Comment: Testing | % | EXTERNAL | | | | performed at [facility], [address] | | LAB | | | Neutrophils | [address], | | | | | | [place] [address] | | | | + + + + + + | % | 17.9Comment: Testing | % | EXTERNAL | | | Lymphocytes | performed at [facility], [address] | | LAB | | | | [address], | | | | | | [place], [place] [address] | | | | + + + + + + | % Monocytes | 25.9Comment: Testing | % | EXTERNAL | | | | performed at [facility], [address] | | LAB | | | | [address], | | | | | | [place], [place] [address] | | | | + + + + + + | % | 6.0Comment: Testing | % | EXTERNAL | | | Eosinophils | performed at [facility], [address] | | LAB | | | | [address], | | | | | | [place] [address] | | | | + + + + + + | % Basophils | 3.9Comment: Testing | % | EXTERNAL | | | | performed at [facility], [address] | | LAB | | | | [address], | | | | | | [place] [address] | | | | + + + + + + | Absolute | 1.5 (L)Comment: Testing | 1.9 - 7.4 K/uL | EXTERNAL | | | Segmented | performed at [facility], [address] | | LAB | | | Neutrophils | [address], | | | | | | [place] [address] | | | | + + + + + + | Absolute | 0.6 (L)Comment: Testing | 1.0 - 3.9 K/uL | EXTERNAL | | | Lymphocytes | performed at [facility], [address] | | LAB | | | | [address], | | | | | | [place] [address] | | | | + + + + + + | Absolute | 0.8Comment: Testing | 0 - 0.8 K/uL | EXTERNAL | | | Monocytes | performed at [facility], [address] | | LAB | | | | [address], | | | | | | [place] [address] | | | | + + + + + + | Absolute | 0.2Comment: Testing | 0 - 0.5 K/uL | EXTERNAL | | | Eosinophils | performed at [facility], [address] | | LAB | | | | [address], | | | | | | [place] [address] | | | | + + + + + + | Absolute | 0.1Comment: Testing | 0 - 0.1 K/uL | EXTERNAL | | | Basophils | performed at [facility], [address] | | LAB | | | | [address], | | | | | | [place] [address] | | | | + + + + + + | RBC | 1+Comment: ANISONORMAL | | EXTERNAL | | | Morphology | PLT MORPHTesting | | LAB | | | | performed at [facility], [address] | | | | | | [address], | | | | | | [place] [address] | | | | | | | | | | + + + + + + + + | Specimen | + + | Blood specimen | | (specimen) | + + + +---------+ + + | Performing | Address | City/State/Zipcode | Phone Number | | Organization | | | | + +---------+ + + | EXTERNAL LAB | | | | + +---------+ + + Phosphorus (02/12/2014 5:31 AM PST) + + + + + + | Component | Value | Ref Range | Performed | Pathologist | | | | | At | Signature | + + + + + + | PHOSPHORUS | 4.4Comment: Testing | 2.3 - 4.8 mg/dL | EXTERNAL | | | | performed at [facility], [address] | | LAB | | | | [address], | | | | | | [place] [address] | | | | + + + + + + + + | Specimen | + + | Blood specimen | | (specimen) | + + + +---------+ + + | Performing | Address | City/State/Zipcode | Phone Number | | Organization | | | | + +---------+ + + | EXTERNAL LAB | | | | + +---------+ + + Magnesium (02/12/2014 5:31 AM PST) + + + + + + | Component | Value | Ref Range | Performed | Pathologist | | | | | At | Signature | + + + + + + | Magnesium | 0.9 (LL)Comment: RESULT | 1.7 - 2.4 mg/dL | EXTERNAL | | | | READ BACK BY: AKIL Chen @ | | LAB | | | | BRENDA 6:44 02/12/14 | | | | | | DHTesting performed at | | | | | | [facility], [address] | | | | | | [place] | | | | | | [address] | | | | + + + + + + + + | Specimen | + + | Blood specimen | | (specimen) | + + + +---------+ + + | Performing | Address | City/State/Zipcode | Phone Number | | Organization | | | | + +---------+ + + | EXTERNAL LAB | | | | + +---------+ + + Comprehensive Metabolic Panel (02/12/2014 5:31 AM PST) + + + + + + | Component | Value | Ref Range | Performed | Pathologist | | | | | At | Signature | + + + + + + | Na | 133 (L)Comment: Testing | 135 - 143 | EXTERNAL | | | | performed at [facility], [address] | mmol/L | LAB | | | | [address], | | | | | | [place] [address] | | | | + + + + + + | K | 3.7Comment: Testing | 3.5 - 4.9 | EXTERNAL | | | | performed at [facility], [address] | mmol/L | LAB | | | | [address], | | | | | | [place] [address] | | | | + + + + + + | Cl | 105Comment: Testing | 99 - 109 mmol/L | EXTERNAL | | | | performed at [facility], [address] | | LAB | | | | [address], | | | | | | [place] [address] | | | | + + + + + + | CO2 | 25Comment: Testing | 23 - 32 mmol/L | EXTERNAL | | | | performed at [facility], [address] | | LAB | | | | [address], | | | | | | [place] [address] | | | | + + + + + + | Anion Gap | 7Comment: Testing | 5 - 20 mmol/L | EXTERNAL | | | | performed at [facility], [address] | | LAB | | | | [address], | | | | | | [place] [address] | | | | + + + + + + | Glucose, | 85Comment: Testing | 65 - 99 mg/dL | EXTERNAL | | | Fasting | performed at [facility], [address] | | LAB | | | | [address], | | | | | | [place] [address] | | | | + + + + + + | BUN | 8Comment: Testing | 8 - 25 mg/dL | EXTERNAL | | | | performed at [facility], [address] | | LAB | | | | [address], | | | | | | [place] [address] | | | | + + + + + + | Creatinine | 0.58Comment: Testing | 0.50 - 1.00 | EXTERNAL | | | | performed at [facility], [address] | mg/dL | LAB | | | | [address], | | | | | | [place] [address] | | | | + + + + + + | BUN/Creatin | 14Comment: Testing | | EXTERNAL | | | ine Ratio | performed at [facility], [address] | | LAB | | | | [address], | | | | | | [place] [address] | | | | + + + + + + | Calcium | 9.2Comment: Testing | 8.5 - 10.2 | EXTERNAL | | | | performed at [facility], [address] | mg/dL | LAB | | | | [address], | | | | | | [place] [address] | | | | + + + + + + | Protein, | 5.6 (L)Comment: Testing | 6.3 - 8.2 g/dL | EXTERNAL | | | Total | performed at [facility], [address] | | LAB | | | [address], | | | | | | [place] [address] | | | | + + + + + + | Albumin | 2.2 (L)Comment: Testing | 3.6 - 5.0 g/dL | EXTERNAL | | | | performed at [facility], [address] | | LAB | | | | [address], | | | | | | [place] [address] | | | | + + + + + + | Globulin | 3.4Comment: Testing | 1.3 - 4.9 g/dL | EXTERNAL | | | | performed at [facility], [address] | | LAB | | | | [address], | | | | | | [place] [address] | | | | + + + + + + | A/G Ratio | 0.6 (L)Comment: Testing | 1.0 - 2.4 | EXTERNAL | | | | performed at [facility], [address] | | LAB | | | | [address], | | | | | | [place] [address] | | | | + + + + + + | Bilirubin | 0.8Comment: Testing | 0.1 - 1.5 mg/dL | EXTERNAL | | | Total | performed at [facility], [address] | | LAB | | | | [address], | | | | | | [place], [place] [address] | | | | + + + + + + | ALP, | 119 (H)Comment: Testing | 35 - 115 U/L | EXTERNAL | | | External | performed at [facility], [address] | | LAB | | | | [address], | | | | | | [place], [place] [address] | | | | + + + + + + | AST | 36Comment: Testing | 10 - 45 U/L | EXTERNAL | | | | performed at [facility], [address] | | LAB | | | | [address], | | | | | | [place] [address] | | | | + + + + + + | ALT | 16Comment: Testing | 10 - 65 U/L | EXTERNAL | | | | performed at [facility], [address] | | LAB | | | | [address], | | | | | | [place] [address] | | | | + + + + + + | Estimated | >60Comment: GFR <60: | mL/min/1.73m2 | EXTERNAL | | | GFR | CHRONIC KIDNEY DISEASE, | | LAB | | | | IF FOUND OVER A 3 MONTH | | | | | | PERIOD.GFR <15: KIDNEY | | | | | | FAILURE.FOR | | | | | | AMERICANS, MULTIPLY THE | | | | | | CALCULATED GFR BY | | | | | | 1.210.Testing performed | | | | | | at [facility], [address] | | | | | | [address], | | | | | | [place] [address] | | | | + + + + + + + + | Specimen | + + | | + + + +---------+ + + | Performing | Address | City/State/Zipcode | Phone Number | | Organization | | | | + +---------+ + + | EXTERNAL LAB | | | | + +---------+ + + Magnesium (02/11/2014 9:27 AM PST) + + + + + + | Component | Value | Ref Range | Performed | Pathologist | | | | | At | Signature | + + + + + + | Magnesium | 5.1 ()Comment: CALLED | 1.7 - 2.4 mg/dL | EXTERNAL | | | | TO BHARATHI Chen ON SURG AT | | LAB | | | | 1006 BY TRREAD BACK | | | | | | RESULTS VERIFIEDTesting | | | | | | performed at [facility] | | | | | | [facility];[place] | | | | | | [address] | | | | + + + + + + + + | Specimen | + + | Blood specimen | | (specimen) | + + + +---------+ + + | Performing | Address | City/State/Zipcode | Phone Number | | Organization | | | | + +---------+ + + | EXTERNAL LAB | | | | + +---------+ + + Folate (02/11/2014 7:22 AM PST) + + + + + + | Component | Value | Ref Range | Performed | Pathologist | | | | | At | Signature | + + + + + + | Folate | 12.3Comment: Testing | ng/mL | EXTERNAL | | | | performed at [facility], [address] | | LAB | | | | [address], | | | | | | [place] [address] | | | | + + + + + + + + | Specimen | + + | Blood specimen | | (specimen) | + + + +---------+ + + | Performing | Address | City/State/Zipcode | Phone Number | | Organization | | | | + +---------+ + + | EXTERNAL LAB | | | | + +---------+ + + Vitamin B-12 (02/11/2014 7:22 AM PST) + + + + + + | Component | Value | Ref Range | Performed | Pathologist | | | | | At | Signature | + + + + + + | VITAMIN | 1,250Comment: Testing | 254 - 1,320 | EXTERNAL | | | B-12 | performed at [facility], [address] | pg/mL | LAB | | | | [address], | | | | | | [place] [address] | | | | + + + + + + + + | Specimen | + + | Blood specimen | | (specimen) | + + + +---------+ + + | Performing | Address | City/State/Zipcode | Phone Number | | Organization | | | | + +---------+ + + | EXTERNAL LAB | | | | + +---------+ + + Iron and Iron Binding Capacity (02/11/2014 5:35 AM PST) + + + + + + | Component | Value | Ref Range | Performed | Pathologist | | | | | At | Signature | + + + + + + | Iron | 22 (L)Comment: Testing | 30 - 180 ug/dL | EXTERNAL | | | | performed at [facility], [address] | | LAB | | | | [address], | | | | | | [place] [address] | | | | + + + + + + | TIBC | 146 (L)Comment: Testing | 260 - 490 ug/dL | EXTERNAL | | | | performed at [facility], [address] | | LAB | | | | [address], | | | | | | [place] [address] | | | | + + + + + + | Iron | 15Comment: Testing | 15 - 50 % | EXTERNAL | | | Saturation | performed at [facility], [address] | | LAB | | | | [address], | | | | | | [place] [address] | | | | + + + + + + + + | Specimen | + + | | + + + +---------+ + + | Performing | Address | City/State/Zipcode | Phone Number | | Organization | | | | + +---------+ + + | EXTERNAL LAB | | | | + +---------+ + + External Lab: JONATHAN (02/11/2014 5:35 AM PST) + + + + + + | Component | Value | Ref Range | Performed | Pathologist | | | | | At | Signature | + + + + + + | WBC | 3.1 (L)Comment: Testing | 3.8 - 11.0 K/uL | EXTERNAL | | | | performed at [facility], [address] | | LAB | | | | [address], | | | | | | [place] [address] | | | | + + + + + + | Non- | 2.90 (L)Comment: Testing | 3.70 - 5.10 | EXTERNAL | | | Red Blood | performed at [facility], [address] | M/uL | LAB | | | Cells | [address], | | | | | Counted | [place] [address] | | | | + + + + + + | Hemoglobin | 9.2 (L)Comment: Testing | 11.3 - 15.5 | EXTERNAL | | | | performed at [facility], [address] | g/dL | LAB | | | | [address], | | | | | | [place] [address] | | | | + + + + + + | Hematocrit, | 27.3 (L)Comment: Testing | 34.0 - 46.0 % | EXTERNAL | | | POC | performed at [facility], [address] | | LAB | | | | [address], | | | | | | [place] [address] | | | | + + + + + + | MCV | 94.2Comment: Testing | 80.0 - 100.0 fl | EXTERNAL | | | | performed at [facility], [address] | | LAB | | | | [address], | | | | | | [place] [address] | | | | + + + + + + | MCH | 31.6Comment: Testing | 27.0 - 34.0 pg | EXTERNAL | | | | performed at [facility], [address] | | LAB | | | | [address], | | | | | | [place] [address] | | | | + + + + + + | MCHC | 33.5Comment: Testing | 32.0 - 35.5 | EXTERNAL | | | | performed at [facility], [address] | g/dL | LAB | | | | [address], | | | | | | [place] [address] | | | | + + + + + + | RDW-CV | 56.0 (H)Comment: Testing | 37 - 53 fl | EXTERNAL | | | | performed at [facility], [address] | | LAB | | | | [address], | | | | | | [place] [address] | | | | + + + + + + | Platelet | 83 (L)Comment: Testing | 150 - 400 K/uL | EXTERNAL | | | Count | performed at [facility], [address] | | LAB | | | Plasma | [address], | | | | | | [place] [address] | | | | + + + + + + | MPV | 8.7Comment: Testing | fl | EXTERNAL | | | | performed at [facility], [address] | | LAB | | | | [address], | | | | | | [place] [address] | | | | + + + + + + | Differentia | MANUALComment: Testing | | EXTERNAL | | | l Type | performed at [facility], [address] | | LAB | | | | [address], | | | | | | [place] [address] | | | | + + + + + + | Segmented | 63Comment: Testing | % | EXTERNAL | | | Neutrophils | performed at [facility], [address] | | LAB | | | Manual | [address], | | | | | | [place] [address] | | | | + + + + + + | Lymphocytes | 9Comment: Testing | % | EXTERNAL | | | Manual | performed at [facility], [address] | | LAB | | | | [address], | | | | | | [place] [address] | | | | + + + + + + | Monocytes | 21Comment: Testing | % | EXTERNAL | | | Manual | performed at [facility], [address] | | LAB | | | | [address], | | | | | | [place] [address] | | | | + + + + + + | Eosinophils | 7Comment: Testing | % | EXTERNAL | | | Manual | performed at [facility], [address] | | LAB | | | | [address], | | | | | | [place] [address] | | | | + + + + + + | Absolute | 1.9Comment: Testing | 1.9 - 7.4 K/uL | EXTERNAL | | | Neutrophils | performed at [facility], [address] | | LAB | | | | [address], | | | | | | [place] [address] | | | | + + + + + + | Absolute | 0.3 (L)Comment: Testing | 1.0 - 3.9 K/uL | EXTERNAL | | | Lymphocytes | performed at [facility], [address] | | LAB | | | | [address], | | | | | | [place] [address] | | | | + + + + + + | Absolute | 0.7Comment: Testing | 0 - 0.8 K/uL | EXTERNAL | | | Monocytes | performed at [facility], [address] | | LAB | | | | [address], | | | | | | [place] [address] | | | | + + + + + + | Absolute | 0.2Comment: Testing | 0 - 0.5 K/uL | EXTERNAL | | | Eosinophils | performed at [facility], [address] | | LAB | | | | [address], | | | | | | [place] [address] | | | | + + + + + + | RBC | RBC AND PLT MORPHOLOGY | | EXTERNAL | | | Morphology | APPEAR NORMALComment: | | LAB | | | | Testing performed at | | | | | | [facility], [address] | | | | | | [place] | | | | | | [id number] | | | | + + + + + + + + | Specimen | + + | Blood specimen | | (specimen) | + + + +---------+ + + | Performing | Address | City/State/Zipcode | Phone Number | | Organization | | | | + +---------+ + + | EXTERNAL LAB | | | | + +---------+ + + Phosphorus (02/11/2014 5:35 AM PST) + + + + + + | Component | Value | Ref Range | Performed | Pathologist | | | | | At | Signature | + + + + + + | PHOSPHORUS | 5.0 (H)Comment: Testing | 2.3 - 4.8 mg/dL | EXTERNAL | | | | performed at [facility], [address] | | LAB | | | | [facility], | | | | | | [place] [address] | | | | + + + + + + + + | Specimen | + + | Blood specimen | | (specimen) | + + + +---------+ + + | Performing | Address | City/State/Zipcode | Phone Number | | Organization | | | | + +---------+ + + | EXTERNAL LAB | | | | + +---------+ + + Magnesium (02/11/2014 5:35 AM PST) + + + + + + | Component | Value | Ref Range | Performed | Pathologist | | | | | At | Signature | + + + + + + | Magnesium | 0.9 (LL)Comment: RESULT | 1.7 - 2.4 mg/dL | EXTERNAL | | | | READ BACK BY: BHARATHI Enriquez | | LAB | | | | BRENDA 6:59 02/11/14 | | | | | | DHTesting performed at | | | | | | [facility], [address] | | | | | | [place] | | | | | | [address] | | | | + + + + + + + + | Specimen | + + | Blood specimen | | (specimen) | + + + +---------+ + + | Performing | Address | City/State/Zipcode | Phone Number | | Organization | | | | + +---------+ + + | EXTERNAL LAB | | | | + +---------+ + + Ferritin (02/11/2014 5:35 AM PST) + + + + + + | Component | Value | Ref Range | Performed | Pathologist | | | | | At | Signature | + + + + + + | Ferritin, | 74Comment: Testing | 6 - 170 ng/mL | EXTERNAL | | | External | performed at [facility], [address] | | LAB | | | | [address] [place], | | | | | | [place] [address] | | | | + + + + + + + + | Specimen | + + | | + + + +---------+ + + | Performing | Address | City/State/Zipcode | Phone Number | | Organization | | | | + +---------+ + + | EXTERNAL LAB | | | | + +---------+ + + Comprehensive Metabolic Panel (02/11/2014 5:35 AM PST) + + + + + + | Component | Value | Ref Range | Performed | Pathologist | | | | | At | Signature | + + + + + + | Na | 133 (L)Comment: Testing | 135 - 143 | EXTERNAL | | | | performed at [facility], [address] | mmol/L | LAB | | | | [address] [place], | | | | | | [place] [address] | | | | + + + + + + | K | 3.9Comment: Testing | 3.5 - 4.9 | EXTERNAL | | | | performed at [facility], [address] | mmol/L | LAB | | | | [address], | | | | | | [place] [address] | | | | + + + + + + | Cl | 107Comment: Testing | 99 - 109 mmol/L | EXTERNAL | | | | performed at [facility], [address] | | [place] | | | | [address], | | | | | | [place] [address] | | | | + + + + + + | CO2 | 23Comment: Testing | 23 - 32 mmol/L | EXTERNAL | | | | performed at [facility], [address] | | LAB | | | | [address], | | | | | | [place] [address] | | | | + + + + + + | Anion Gap | 7Comment: Testing | 5 - 20 mmol/L | EXTERNAL | | | | performed at [facility], [address] | | LAB | | | | [address], | | | | | | [place] [address] | | | | + + + + + + | Glucose, | 85Comment: Testing | 65 - 99 mg/dL | EXTERNAL | | | Fasting | performed at [facility], [address] | | LAB | | | | [address], | | | | | | [place] [address] | | | | + + + + + + | BUN | 6 (L)Comment: Testing | 8 - 25 mg/dL | EXTERNAL | | | | performed at [facility], [address] | | LAB | | | | [address], | | | | | | [place] [address] | | | | + + + + + + | Creatinine | 0.52Comment: Testing | 0.50 - 1.00 | EXTERNAL | | | | performed at [facility], [address] | mg/dL | LAB | | | | [address], | | | | | | [place] [address] | | | | + + + + + + | BUN/Creatin | 12Comment: Testing | | EXTERNAL | | | ine Ratio | performed at [facility], [address] | | LAB | | | | [address], | | | | | | [place] [address] | | | | + + + + + + | Calcium | 8.8Comment: Testing | 8.5 - 10.2 | EXTERNAL | | | | performed at [facility], [address] | mg/dL | LAB | | | | [address], | | | | | | [place] [address] | | | | + + + + + + | Protein, | 5.4 (L)Comment: Testing | 6.3 - 8.2 g/dL | EXTERNAL | | | Total | performed at [facility], [address] | | LAB | | | | [address], | | | | | | [place] [address] | | | | + + + + + + | Albumin | 2.1 (L)Comment: Testing | 3.6 - 5.0 g/dL | EXTERNAL | | | | performed at [facility], [address] | | LAB | | | | [address], | | | | | | [place] [address] | | | | + + + + + + | Globulin | 3.3Comment: Testing | 1.3 - 4.9 g/dL | EXTERNAL | | | | performed at [facility], [address] | | LAB | | | | [address] [place], | | | | | | [place] [address] | | | | + + + + + + | A/G Ratio | 0.6 (L)Comment: Testing | 1.0 - 2.4 | EXTERNAL | | | | performed at [facility], [address] | | LAB | | | | [address], | | | | | | [place] [address] | | | | + + + + + + | Bilirubin | 0.7Comment: Testing | 0.1 - 1.5 mg/dL | EXTERNAL | | | Total | performed at [facility], [address] | | LAB | | | | [address], | | | | | | [place] [address] | | | | + + + + + + | ALP, | 109Comment: Testing | 35 - 115 U/L | EXTERNAL | | | External | performed at [facility], [address] | | LAB | | | | [address], | | | | | | [place] [address] | | | | + + + + + + | AST | 40Comment: Testing | 10 - 45 U/L | EXTERNAL | | | | performed at [facility], [address] | | LAB | | | | [address] [place], | | | | | | [place] [address] | | | | + + + + + + | ALT | 15Comment: Testing | 10 - 65 U/L | EXTERNAL | | | | performed at [facility], [address] | | LAB | | | | [address], | | | | | | [place] [address] | | | | + + + + + + | Estimated | >60Comment: GFR <60: | mL/min/1.73m2 | EXTERNAL | | | GFR | CHRONIC KIDNEY DISEASE, | | LAB | | | | IF FOUND OVER A 3 MONTH | | | | | | PERIOD.GFR <15: KIDNEY | | | | | | FAILURE.FOR | | | | | | AMERICANS, MULTIPLY THE | | | | | | CALCULATED GFR BY | | | | | | 1.210.Testing performed | | | | | | at [facility], [address] | | | | | | [address], | | | | | | [place] [address] | | | | + + + + + + + + | Specimen | + + | | + + + +---------+ + + | Performing | Address | City/State/Zipcode | Phone Number | | Organization | | | | + +---------+ + + | EXTERNAL LAB | | | | + +---------+ + + Potassium (02/10/2014 5:45 PM PST) + + + + + + | Component | Value | Ref Range | Performed | Pathologist | | | | | At | Signature | + + + + + + | K | 3.6Comment: Testing | 3.5 - 4.9 | EXTERNAL | | | | performed at [facility] [place] | mmol/L | LAB | | | | [address] [place], [place] | | | | | | [address] | | | | + + + + + + + + | Specimen | + + | Blood specimen | | (specimen) | + + + +---------+ + + | Performing | Address | City/State/Zipcode | Phone Number | | Organization | | | | + +---------+ + + | EXTERNAL LAB | | | | + +---------+ + + Magnesium (02/10/2014 5:45 PM PST) + + + + + + | Component | Value | Ref Range | Performed | Pathologist | | | | | At | Signature | + + + + + + | Magnesium | 1.1 (L)Comment: Testing | 1.7 - 2.4 mg/dL | EXTERNAL | | | | performed at [facility] [place];[address] | | LAB | | | | [address] [place] | | | | | | [address] | | | | + + + + + + + + | Specimen | + + | Blood specimen | | (specimen) | + + + +---------+ + + | Performing | Address | City/State/Zipcode | Phone Number | | Organization | | | | + +---------+ + + | EXTERNAL LAB | | | | + +---------+ + + ECHO Complete (02/10/2014 6:46 AM PST) + + | Specimen | + + | | + + + + + | Impressions | Performed At | + + + | 1. Sinus rhythm. 2. This was a technically adequate study. 3. | | | Overall left ventricular systolic function is normal with, an EF | | | between 60 - 65 %. 4. Left Ventricle ejection fraction by m-mode | | | measures 64%. 5. The left ventricle cavity size is normal. 6. Left | | | ventricular wall thickness is normal. 7. No regional wall motion | | | abnormalities. 8. The diastolic filling pattern is normal for the age | | | of the patient. 9. The right ventricle is mildly enlarged measuring | | | between 3.4 - 3.7 cm. 10. The right ventricular systolic function is | | | normal. 11. The left atrium is moderately dilated. 12. , and the LA | | | measures 4.7cm. 13. The right atrial size is normal. 14. , and the | | | RA measures 4.8cm. 15. The aortic valve is trileaflet and appears | | | structurally normal. 16. There is no evidence of aortic | | | regurgitation. 17. The mitral valve is normal. 18. Txey-hh-vgaajmfw | | | mitral regurgitation is present. 19. , the MR was evaluated | | | quantitatively, by PISA and/or regurgitant fraction method. 20. Mild | | | mitral annular calcification present. 21. The tricuspid valve appears | | | structurally normal. 22. Moderate tricuspid regurgitation present. | | | 23. There is mild pulmonary hypertension. 24. The right ventricular | | | systolic pressure (pulmonary artery systolic pressure), as measured by | | | Doppler, is 27 + 10 = 37mmHg. 25. The pulmonic valve was not well | | | visualized. 26. Trace pulmonic regurgitation 27. There is no | | | pericardial effusion. 28. No pleural effusion seen. 29. The IVC was | | | not well visualized. 30. No mass visualized | | + + + + + + | Narrative | Performed At | + + + | Patient Name: SHAILA SON Date of : 1970 | | | Performing Physician: Jared Gilbert MD | | | | | | INDICATIONS Shortness of Breath ( Hepatic | | | encephalopathy, ETOH abuse) CONCLUSIONS 1. Sinus | | | rhythm. 2. This was a technically adequate study. 3. Overall left | | | ventricular systolic function is normal with, an EF between 60 - 65 %. | | | 4. Left Ventricle ejection fraction by m-mode measures 64%. 5. The | | | left ventricle cavity size is normal. 6. Left ventricular wall | | | thickness is normal. 7. No regional wall motion abnormalities. 8. | | | The diastolic filling pattern is normal for the age of the patient. | | | 9. The right ventricle is mildly enlarged measuring between 3.4 - 3.7 | | | cm. 10. The right ventricular systolic function is normal. 11. The | | | left atrium is moderately dilated. 12. , and the LA measures 4.7cm. | | | 13. The right atrial size is normal. 14. , and the RA measures 4.8cm. | | | 15. The aortic valve is trileaflet and appears structurally normal. | | | 16. There is no evidence of aortic regurgitation. 17. The mitral | | | valve is normal. 18. Xvke-nf-exmppcus mitral regurgitation is | | | present. 19. , the MR was evaluated quantitatively, by PISA and/or | | | regurgitant fraction method. 20. Mild mitral annular calcification | | | present. 21. The tricuspid valve appears structurally normal. 22. | | | Moderate tricuspid regurgitation present. 23. There is mild pulmonary | | | hypertension. 24. The right ventricular systolic pressure (pulmonary | | | artery systolic pressure), as measured by Doppler, is 27 + 10 = | | | 37mmHg. 25. The pulmonic valve was not well visualized. 26. Trace | | | pulmonic regurgitation 27. There is no pericardial effusion. 28. No | | | pleural effusion seen. 29. The IVC was not well visualized. 30. No | | | mass visualized FINDINGS -------- ECG rhythm: Sinus rhythm. | | | Study: This was a technically adequate study. Left Ventricle: Overall | | | left ventricular systolic function is normal with, an EF between 60 - | | | 65 %. Left Ventricle: Left Ventricle ejection fraction by m-mode | | | measures 64%. Left Ventricle: The left ventricle cavity size is | | | normal. Left Ventricle: Left ventricular wall thickness is normal. | | | Left Ventricle: No regional wall motion abnormalities. Left | | | Ventricle: The diastolic filling pattern is normal for the age of the | | | patient. Right Ventricle: The right ventricle is mildly enlarged | | | measuring between 3.4 - 3.7 cm. Right Ventricle: The right | | | ventricular systolic function is normal. Left Atrium: The left atrium | | | is moderately dilated Left Atrium: , and the LA measures 4.7cm. | | | Right Atrium: The right atrial size is normal Right Atrium: , and the | | | RA measures 4.8cm. Aortic Valve: The aortic valve is trileaflet and | | | appears structurally normal. Aortic Valve: There is no evidence of | | | aortic regurgitation. Mitral Valve: The mitral valve is normal. | | | Mitral Valve: Njsi-qp-ppuxjtjf mitral regurgitation is present Mitral | | | Valve: , the MR was evaluated quantitatively, by PISA and/or | | | regurgitant fraction method. Mitral Valve: Mild mitral annular | | | calcification present. Tricuspid Valve: The tricuspid valve appears | | | structurally normal. Tricuspid Valve: Moderate tricuspid | | | regurgitation present. Tricuspid Valve: There is mild pulmonary | | | hypertension. Tricuspid Valve: The right ventricular systolic | | | pressure (pulmonary artery systolic pressure), as measured by Doppler, | | | is 27 + 10 = 37mmHg. Pulmonic Valve: The pulmonic valve was not well | | | visualized. Pulmonic Valve: Trace pulmonic regurgitation. | | | Pericardium: There is no pericardial effusion. Pericardium: No | | | pleural effusion seen. IVC/Hepatic Veins: The IVC was not well | | | visualized. Mass: No mass visualized Thrombus: No clot visualized | | | Thrombus: No vegetation visualized. MEASUREMENTS | | | LA Diam: 4.65 cm LA Major: 5.65 cm LVOT Diam: 2.08 cm RA | | | Major: 4.78 cm RVIDd: 3.44 cm LVEF MOD A2C: 63.51 % SV MOD | | | A2C: 90.22 ml LVEF MOD A4C: 58.66 % SV MOD A4C: 66.54 ml | | | EF Biplane: 62.06 % LVEDV MOD BP: 131.65 ml LVESV MOD BP: | | | 49.94 ml LVEDV MOD A2C: 142.06 ml LVLd A2C: 8.19 cm LVEDV MOD | | | A4C: 113.42 ml LVLd A4C: 7.54 cm LVESV MOD A2C: 51.83 ml | | | LVLs A2C: 6.55 cm LVESV MOD A4C: 46.88 ml LVLs A4C: 6.29 cm | | | CO Biplane: 7.62 l/min HR: 93.27 BPM R-R: 643.25 ms | | | LAESV(A-L): 111.45 ml LAESV Index (A-L): 62.26 ml/m2 LAAs A2C: | | | 27.87 cm2 LAESV A-L A2C: 118.11 ml LALs A2C: 5.58 cm LAAs | | | A4C: 26.30 cm2 LAESV A-L A4C: 99.33 ml LALs A4C: 5.91 cm | | | MR Flow: 52.53 ml/s MR Rad: 0.48 cm MR Als.Juan A: 0.35 m/s | | | TR Flow: 199.86 ml/s TR Rad: 0.87 cm TR Als.Juan A: 0.41 m/s | | | Ao Diam: 2.73 cm AV Cusp: 1.83 cm LA Diam: 3.82 cm LA/Ao: | | | 1.4 %FS: 35.13 % EDV(Teich): 148.07 ml EF(Teich): 63.86 | | | % ESV(Teich): 53.50 ml IVSd: 0.94 cm IVSs: 1.39 cm | | | LVIDd: 5.51 cm LVIDs: 3.57 cm LVPWd: 0.84 cm LVPWs: | | | 1.34 cm SV(Teich): 94.56 ml D-E Excursion: 1.83 cm E-F Gove: | | | 0.07 m/s EPSS: 1.09 cm HR: 85.87 BPM AV maxP.78 | | | mmHg AV meanP.34 mmHg AV Vmax: 1.39 m/s AV Vmean: 0.99 | | | m/s AV VTI: 29.75 cm MARLIN Vmax: 2.68 cm2 MARLIN (VTI): 2.83 | | | cm2 LVCI Dopp: 3.83 l/minm2 LVCO Dopp: 6.86 l/min HR: | | | 81.35 BPM LVOT maxP.86 mmHg LVOT meanP.61 mmHg LVSI | | | Dopp: 47.12 ml/m2 LVSV Dopp: 84.35 ml LVOT Vmax: 1.10 m/s | | | LVOT Vmean: 0.75 m/s LVOT VTI: 24.79 cm MCO: 415.89 ms MV | | | A Juan A: 0.73 m/s MV DecT: 159.57 ms MV E Juan A: 0.85 m/s MV | | | E/A Ratio: 1.16 MV PHT: 52.15 ms MVA By PHT: 4.21 cm2 MV A | | | Dur: 99.81 ms Septal e': 0.10 m/s Septal E/e': 8.24 | | | Lateral e': 0.09 m/s Lateral E/e': 8.87 MR ERO: 0.10 cm2 | | | MR RV: 14.94 ml TR ERO: 0.72 cm2 TR RV: 61.75 ml MR Vmax: | | | 5.11 m/s MR VTI: 145.53 cm TR Vmax: 2.74 m/s TR VTI: | | | 84.79 cm P Vein A: 0.40 m/s P Vein A Dur: 77.63 ms P Vein D: | | | 0.49 m/s P Vein S/D Ratio: 1.53 P Vein S: 0.75 m/s HR: | | | 86.56 BPM PV maxP.55 mmHg PV meanP.39 mmHg PV Vmax: | | | 1.06 m/s PV Vmean: 0.73 m/s PV VTI: 23.49 cm TR maxPG: | | | 27.13 mmHg TR Vmax: 2.60 m/s TV A Juan A: 0.65 m/s TV Dec Gove: | | | 4.00 m/s2 TV Dec Time: 240.34 ms TV E Juan A: 0.96 m/s TV | | | E/A Ratio: 1.47 Network Intelligence Analyst: DERIK Authenticated by: Jared Vasquez | | | Vladimir MADERA Report Date/Time: 02-10-2014 13:40:29 | | + + + + + | Procedure Note | + + | Jermaine, Edgardo Conversion - 11/22/2018 10:10 AM PDT Patient Name: Darien SON | | : 1970 Performing Physician: Jared Gilbert | | INDICATIONS S | | hortness of Breath ( Hepatic encephalopathy, ETOH abuse) CONCLUSIONS 1. | | Sinus rhythm.2. This was a technically adequate study.3. Overall left ventricular | | systolic function is normal with, an EF between 60 - 65 %.4. Left Ventricle ejection | | fraction by m-mode measures 64%.5. The left ventricle cavity size is normal.6. Left | | ventricular wall thickness is normal.7. No regional wall motion abnormalities.8. The | | diastolic filling pattern is normal for the age of the patient.9. The right ventricle is | | mildly enlarged measuring between 3.4 - 3.7 cm.10. The right ventricular systolic | | function is normal.11. The left atrium is moderately dilated.12. , and the LA measures | | 4.7cm.13. The right atrial size is normal.14. , and the RA measures 4.8cm.15. The aortic | | valve is trileaflet and appears structurally normal.16. There is no evidence of aortic | | regurgitation.17. The mitral valve is normal.18. Jnfw-ff-ecujzsch mitral regurgitation | | is present.19. , the MR was evaluated quantitatively, by PISA and/or regurgitant | | fraction method.20. Mild mitral annular calcification present.21. The tricuspid valve | | appears structurally normal.22. Moderate tricuspid regurgitation present.23. There is | | mild pulmonary hypertension.24. The right ventricular systolic pressure (pulmonary | | artery systolic pressure), as measured by Doppler, is 27 + 10 = 37mmHg.25. The pulmonic | | valve was not well visualized.26. Trace pulmonic [id number]. There is no | | pericardial effusion.28. No pleural effusion seen.29. The IVC was not well | | visualized.30. No mass visualized FINDINGS--------ECG rhythm: Sinus rhythm.Study: This | | was a technically adequate study.Left Ventricle: Overall left ventricular systolic | | function is normal with, an EF between 60 - 65 %.Left Ventricle: Left Ventricle ejection | | fraction by m-mode measures 64%.Left Ventricle: The left ventricle cavity size is | | normal.Left Ventricle: Left ventricular wall thickness is normal.Left Ventricle: No | | regional wall motion abnormalities.Left Ventricle: The diastolic filling pattern is | | normal for the age of the patient.Right Ventricle: The right ventricle is mildly | | enlarged measuring between 3.4 - 3.7 cm.Right Ventricle: The right ventricular systolic | | function is normal.Left Atrium: The left atrium is moderately dilatedLeft Atrium: , and | | the LA measures 4.7cm.Right Atrium: The right atrial size is normalRight Atrium: , and | | the RA measures 4.8cm.Aortic Valve: The aortic valve is trileaflet and appears | | structurally normal.Aortic Valve: There is no evidence of aortic regurgitation.Mitral | | Valve: The mitral valve is normal.Mitral Valve: Mtht-yy-bkbbjtsx mitral regurgitation is | | presentMitral Valve: , the MR was evaluated quantitatively, by PISA and/or regurgitant | | fraction method.Mitral Valve: Mild mitral annular calcification present.Tricuspid Valve: | | The tricuspid valve appears structurally normal.Tricuspid Valve: Moderate tricuspid | | regurgitation present.Tricuspid Valve: There is mild pulmonary hypertension.Tricuspid | | Valve: The right ventricular systolic pressure (pulmonary artery systolic pressure), as | | measured by Doppler, is 27 + 10 = 37mmHg.Pulmonic Valve: The pulmonic valve was not well | | visualized.Pulmonic Valve: Trace pulmonic regurgitation.Pericardium: There is no | | pericardial effusion.Pericardium: No pleural effusion seen.IVC/Hepatic Veins: The IVC | | was not well visualized.Mass: No mass visualizedThrombus: No clot visualizedThrombus: No | | vegetation visualized. MEASUREMENTS LA Diam: 4.65 cmLA Major: 5.65 | | cmLVOT Diam: 2.08 cmRA Major: 4.78 cmRVIDd: 3.44 cmLVEF MOD A2C: 63.51 %SV MOD | | A2C: 90.22 mlLVEF MOD A4C: 58.66 %SV MOD A4C: 66.54 mlEF Biplane: 62.06 %LVEDV | | MOD BP: 131.65 mlLVESV MOD BP: 49.94 mlLVEDV MOD A2C: 142.06 mlLVLd A2C: 8.19 | | cmLVEDV MOD A4C: 113.42 mlLVLd A4C: 7.54 cmLVESV MOD A2C: 51.83 mlLVLs A2C: 6.55 | | cmLVESV MOD A4C: 46.88 mlLVLs A4C: 6.29 cmCO Biplane: 7.62 l/minHR: 93.27 | | BPMR-R: 643.25 msLAESV(A-L): 111.45 mlLAESV Index (A-L): 62.26 ml/m2LAAs A2C: | | 27.87 [id number] A-L A2C: 118.11 mlLALs A2C: 5.58 cmLAAs A4C: 26.30 [id number] A-L | | A4C: 99.33 mlLALs A4C: 5.91 cmMR Flow: 52.53 ml/sMR Rad: 0.48 cmMR Als.Juan A: | | 0.35 m/sTR Flow: 199.86 ml/sTR Rad: 0.87 cmTR Als.Juan A: 0.41 m/Stephany Diam: 2.73 | | cmAV Cusp: 1.83 cmLA Diam: 3.82 cmLA/Ao: 1.4%FS: 35.13 %EDV(Teich): 148.07 | | mlEF(Teich): 63.86 %ESV(Teich): 53.50 mlIVSd: 0.94 cmIVSs: 1.39 cmLVIDd: 5.51 | | cmLVIDs: 3.57 cmLVPWd: 0.84 cmLVPWs: 1.34 cmSV(Teich): 94.56 mlD-E Excursion: | | 1.83 cmE-F Gove: 0.07 m/sEPSS: 1.09 cmHR: 85.87 BPMAV maxP.78 mmHgAV | | meanP.34 mmHgAV Vmax: 1.39 m/Uvaldo Vmean: 0.99 m/Uvaldo VTI: 29.75 cmAVA Vmax: | | 2.68 cm2AVA (VTI): 2.83 [id number] Dopp: 3.83 l/[id number] Dopp: 6.86 l/minHR: 81.35 | | BPMLVOT maxP.86 mmHgLVOT meanP.61 mmHgLVSI Dopp: 47.12 ml/m2LVSV Dopp: | | 84.35 mlLVOT Vmax: 1.10 m/sLVOT Vmean: 0.75 m/sLVOT VTI: 24.79 cmMCO: 415.89 | | msMV A Juan A: 0.73 m/sMV DecT: 159.57 msMV E Juan A: 0.85 m/sMV E/A Ratio: 1.16MV | | PHT: 52.15 msMVA By PHT: 4.21 cm2MV A Dur: 99.81 msSeptal e': 0.10 m/sSeptal | | E/e': 8.24Lateral e': 0.09 m/sLateral E/e': 8.87MR ERO: 0.10 cm2MR RV: 14.94 | | mlTR ERO: 0.72 cm2TR RV: 61.75 mlMR Vmax: 5.11 m/sMR VTI: 145.53 cmTR Vmax: | | 2.74 m/sTR VTI: 84.79 cmP Vein A: 0.40 m/sP Vein A Dur: 77.63 msP Vein D: 0.49 | | m/sP Vein S/D Ratio: 1.53P Vein S: 0.75 m/sHR: 86.56 BPMPV maxP.55 mmHgPV | | meanP.39 mmHgPV Vmax: 1.06 m/sPV Vmean: 0.73 m/sPV VTI: 23.49 cmTR maxPG: | | 27.13 mmHgTR Vmax: 2.60 m/sTV A Juan A: 0.65 m/sTV Dec Gove: 4.00 m/s2TV Dec Time: | | 240.34 msTV E Juan A: 0.96 m/sTV E/A Ratio: 1.47 Network Intelligence Analyst: Earlted by: Jared | | Pedro Gilbert MDReport Date/Time: 02-10-2014 13:40:29 IMPRESSION: 1. Sinus rhythm.2. | | This was a technically adequate study.3. Overall left ventricular systolic function is | | normal with, an EF between 60 - 65 %.4. Left Ventricle ejection fraction by m-mode | | measures 64%.5. The left ventricle cavity size is normal.6. Left ventricular wall | | thickness is normal.7. No regional wall motion abnormalities.8. The diastolic filling | | pattern is normal for the age of the patient.9. The right ventricle is mildly enlarged | | measuring between 3.4 - 3.7 cm.10. The right ventricular systolic function is normal.11. | | The left atrium is moderately dilated.12. , and the LA measures 4.7cm.13. The right | | atrial size is normal.14. , and the RA measures 4.8cm.15. The aortic valve is trileaflet | | and appears structurally normal.16. There is no evidence of aortic regurgitation.17. | | The mitral valve is normal.18. Wkup-yo-yhpvfklk mitral regurgitation is present.19. , | | the MR was evaluated quantitatively, by PISA and/or regurgitant fraction method.20. Mild | | mitral annular calcification present.21. The tricuspid valve appears structurally | | normal.22. Moderate tricuspid regurgitation present.23. There is mild pulmonary | | hypertension.24. The right ventricular systolic pressure (pulmonary artery systolic | | pressure), as measured by Doppler, is 27 + 10 = 37mmHg.25. The pulmonic valve was not | | well visualized.26. Trace pulmonic syhavhxadbuby52. There is no pericardial effusion.28. | | No pleural effusion seen.29. The IVC was not well visualized.30. No mass visualized | |SV MOD A2C: 90.22 ml | |LVEF MOD A4C: 58.66 % | |SV MOD A4C: 66.54 ml | |EF Biplane: 62.06 % | |LVEDV MOD BP: 131.65 ml | |LVESV MOD BP: 49.94 ml | |LVEDV MOD A2C: 142.06 ml | |LVLd A2C: 8.19 cm | |LVEDV MOD A4C: 113.42 ml | |LVLd A4C: 7.54 cm | |LVESV MOD A2C: 51.83 ml | |LVLs A2C: 6.55 cm | |LVESV MOD A4C: 46.88 ml | |LVLs A4C: 6.29 cm | |CO Biplane: 7.62 l/min | |HR: 93.27 BPM | |R-R: 643.25 ms | |LAESV(A-L): 111.45 ml | |LAESV Index (A-L): 62.26 ml/m2 | |LAAs A2C: 27.87 cm2 | |LAESV A-L A2C: 118.11 ml | |LALs A2C: 5.58 cm | |LAAs A4C: 26.30 cm2 | |LAESV A-L A4C: 99.33 ml | |LALs A4C: 5.91 cm | |MR Flow: 52.53 ml/s | |MR Rad: 0.48 cm | |MR Als.Juan A: 0.35 m/s | |TR Flow: 199.86 ml/s | |TR Rad: 0.87 cm | |TR Als.Juan A: 0.41 m/s | |Ao Diam: 2.73 cm | |AV Cusp: 1.83 cm | |LA Diam: 3.82 cm | |LA/Ao: 1.4 | |%FS: 35.13 % | |EDV(Teich): 148.07 ml | |EF(Teich): 63.86 % | |ESV(Teich): 53.50 ml | |IVSd: 0.94 cm | |IVSs: 1.39 cm | |LVIDd: 5.51 cm | |LVIDs: 3.57 cm | |LVPWd: 0.84 cm | |LVPWs: 1.34 cm | |SV(Teich): 94.56 ml | |D-E Excursion: 1.83 cm | |E-F Gove: 0.07 m/s | |EPSS: 1.09 cm | |HR: 85.87 BPM | |AV maxP.78 mmHg | |AV meanP.34 mmHg | |AV Vmax: 1.39 m/s | |AV Vmean: 0.99 m/s | |AV VTI: 29.75 cm | |MARLIN Vmax: 2.68 cm2 | |MARLIN (VTI): 2.83 cm2 | |LVCI Dopp: 3.83 l/minm2 | |LVCO Dopp: 6.86 l/min | |HR: 81.35 BPM | |LVOT maxP.86 mmHg | |LVOT meanP.61 mmHg | |LVSI Dopp: 47.12 ml/m2 | |LVSV Dopp: 84.35 ml | |LVOT Vmax: 1.10 m/s | |LVOT Vmean: 0.75 m/s | |LVOT VTI: 24.79 cm | |MCO: 415.89 ms | |MV A Juan A: 0.73 m/s | |MV DecT: 159.57 ms | |MV E Juan A: 0.85 m/s | |MV E/A Ratio: 1.16 | |MV PHT: 52.15 ms | |MVA By PHT: 4.21 cm2 | |MV A Dur: 99.81 ms | |Septal e': 0.10 m/s | |Septal E/e': 8.24 | |Lateral e': 0.09 m/s | |Lateral E/e': 8.87 | |MR ERO: 0.10 cm2 | |MR RV: 14.94 ml | |TR ERO: 0.72 cm2 | |TR RV: 61.75 ml | |MR Vmax: 5.11 m/s | |MR VTI: 145.53 cm | |TR Vmax: 2.74 m/s | |TR VTI: 84.79 cm | |P Vein A: 0.40 m/s | |P Vein A Dur: 77.63 ms | |P Vein D: 0.49 m/s | |P Vein S/D Ratio: 1.53 | |P Vein S: 0.75 m/s | |HR: 86.56 BPM | |PV maxP.55 mmHg | |PV meanP.39 mmHg | |PV Vmax: 1.06 m/s | |PV Vmean: 0.73 m/s | |PV VTI: 23.49 cm | |TR maxP.13 mmHg | |TR Vmax: 2.60 m/s | |TV A Juan A: 0.65 m/s | |TV Dec Gove: 4.00 m/s2 | |TV Dec Time: 240.34 ms | |TV E Juan A: 0.96 m/s | |TV E/A Ratio: 1.47 | | | |Network Intelligence Analyst: DERIK | |Authenticated by: Jared Gilbert MD | |Report Date/Time: 02-10-2014 13:40:29 | | | |IMPRESSION: | |1. Sinus rhythm. | |2. This was a technically adequate study. | |3. Overall left ventricular systolic function is normal with, an EF between 60 - 65 %. | |4. Left Ventricle ejection fraction by m-mode measures 64%. | |5. The left ventricle cavity size is normal. | |6. Left ventricular wall thickness is normal. | |7. No regional wall motion abnormalities. | |8. The diastolic filling pattern is normal for the age of the patient. | |9. The right ventricle is mildly enlarged measuring between 3.4 - 3.7 cm. | |10. The right ventricular systolic function is normal. | |11. The left atrium is moderately dilated. | |12. , and the LA measures 4.7cm. | |13. The right atrial size is normal. | |14. , and the RA measures 4.8cm. | |15. The aortic valve is trileaflet and appears structurally normal. | |16. There is no evidence of aortic regurgitation. | |17. The mitral valve is normal. | |18. Voci-ml-moxvmxsv mitral regurgitation is present. | |19. , the MR was evaluated quantitatively, by PISA and/or regurgitant fraction method. | |20. Mild mitral annular calcification present. | |21. The tricuspid valve appears structurally normal. | |22. Moderate tricuspid regurgitation present. | |23. There is mild pulmonary hypertension. | |24. The right ventricular systolic pressure (pulmonary artery systolic pressure), as measur ed by Doppler, is 27 + 10 = 37mmHg. | |25. The pulmonic valve was not well visualized. | |26. Trace pulmonic regurgitation | |27. There is no pericardial effusion. | |28. No pleural effusion seen. | |29. The IVC was not well visualized. | |30. No mass visualized | + + External Lab: JONATHAN (02/10/2014 5:49 AM PST) + + + + + + | Component | Value | Ref Range | Performed | Pathologist | | | | | At | Signature | + + + + + + | WBC | 3.9Comment: Testing | 3.8 - 11.0 K/uL | EXTERNAL | | | | performed at [facility], [address] | | LAB | | | | [address], | | | | | | [place] [address] | | | | + + + + + + | Non- | 2.69 (L)Comment: Testing | 3.70 - 5.10 | EXTERNAL | | | Red Blood | performed at [facility], [address] | M/uL | LAB | | | Cells | [address], | | | | | Counted | [place] [address] | | | | + + + + + + | Hemoglobin | 8.3 (L)Comment: Testing | 11.3 - 15.5 | EXTERNAL | | | | performed at [facility], [address] | g/dL | LAB | | | | [address], | | | | | | [place] [address] | | | | + + + + + + | Hematocrit, | 25.4 (L)Comment: Testing | 34.0 - 46.0 % | EXTERNAL | | | POC | performed at , [address] | | LAB | | | | [address], | | | | | | [place] [address] | | | | + + + + + + | MCV | 94.4Comment: Testing | 80.0 - 100.0 fl | EXTERNAL | | | | performed at [facility], [address] | | LAB | | | | [address], | | | | | | [place] [address] | | | | + + + + + + | MCH | 30.9Comment: Testing | 27.0 - 34.0 pg | EXTERNAL | | | | performed at [facility], [address] | | LAB | | | | [address], | | | | | | [place] [address] | | | | + + + + + + | MCHC | 32.7Comment: Testing | 32.0 - 35.5 | EXTERNAL | | | | performed at [facility], [address] | g/dL | LAB | | | | [address], | | | | | | [place] [address] | | | | + + + + + + | RDW-CV | 57.3 (H)Comment: Testing | 37 - 53 fl | EXTERNAL | | | | performed at [facility], [address] | | LAB | | | | [address], | | | | | | [place] [address] | | | | + + + + + + | Platelet | 72 (L)Comment: Testing | 150 - 400 K/uL | EXTERNAL | | | Count | performed at [facility], [address] | | LAB | | | Plasma | [address], | | | | | | [place] [address] | | | | + + + + + + | MPV | 8.5Comment: Testing | fl | EXTERNAL | | | | performed at [facility], [address] | | LAB | | | | [address], | | | | | | [place] [address] | | | | + + + + + + | Differentia | MANUALComment: Testing | | EXTERNAL | | | l Type | performed at [facility], [address] | | LAB | | | | [address], | | | | | | [place] [address] | | | | + + + + + + | Segmented | 55Comment: Testing | % | EXTERNAL | | | Neutrophils | performed at [facility], [address] | | LAB | | | Manual | [address], | | | | | | [place] [address] | | | | + + + + + + | % Bands | 1Comment: Testing | % | EXTERNAL | | | | performed at [facility], [address] | | LAB | | | | [address], | | | | | | [place] [address] | | | | + + + + + + | Lymphocytes | 22Comment: Testing | % | EXTERNAL | | | Manual | performed at [facility], [address] | | LAB | | | | [address], | | | | | | [place], [place] [address] | | | | + + + + + + | Monocytes | 17Comment: Testing | % | EXTERNAL | | | Manual | performed at [facility], [address] | | LAB | | | | [address], | | | | | | [place] [address] | | | | + + + + + + | Eosinophils | 5Comment: Testing | % | EXTERNAL | | | Manual | performed at [facility], [address] | | LAB | | | | [address], | | | | | | [place] [address] | | | | + + + + + + | Absolute | 2.1Comment: Testing | 1.9 - 7.4 K/uL | EXTERNAL | | | Neutrophils | performed at [facility], [address] | | LAB | | | | [address], | | | | | | [place] [address] | | | | + + + + + + | Bands | 0.0Comment: Testing | 0 - 0.2 K/uL | EXTERNAL | | | Manual | performed at [facility], [address] | | LAB | | | | [address], | | | | | | [place] [address] | | | | + + + + + + | Absolute | 0.9 (L)Comment: Testing | 1.0 - 3.9 K/uL | EXTERNAL | | | Lymphocytes | performed at [facility], [address] | | LAB | | | | [address], | | | | | | [place] [address] | | | | + + + + + + | Absolute | 0.7Comment: Testing | 0 - 0.8 K/uL | EXTERNAL | | | Monocytes | performed at [facility], [address] | | LAB | | | | [address], | | | | | | [place] [address] | | | | + + + + + + | Absolute | 0.2Comment: Testing | 0 - 0.5 K/uL | EXTERNAL | | | Eosinophils | performed at [facility], [address] | | LAB | | | | [address], | | | | | | [place] [address] | | | | + + + + + + | Platelet | DECREASEDComment: | | EXTERNAL | | | Estimate | Testing performed at | | LAB | | | | [facility], [address] [facility] | | | | | | [place] | | | | | | [address] | | | | + + + + + + | RBC | NORMAL RBC MORPHComment: | | EXTERNAL | | | Morphology | NORMAL PLT MORPHTesting | | LAB | | | | performed at [facility], [address] | | | | | [address], | | | | | | [place] [address] | | | | + + + + + + + + | Specimen | + + | Blood specimen | | (specimen) | + + + +---------+ + + | Performing | Address | City/State/Zipcode | Phone Number | | Organization | | | | + +---------+ + + | EXTERNAL LAB | | | | + +---------+ + + Phosphorus (02/10/2014 5:49 AM PST) + + + + + + | Component | Value | Ref Range | Performed | Pathologist | | | | | At | Signature | + + + + + + | PHOSPHORUS | 4.0Comment: Testing | 2.3 - 4.8 mg/dL | EXTERNAL | | | | performed at [facility], [address] | | LAB | | | | [address], | | | | | | [place] [address] | | | | + + + + + + + + | Specimen | + + | Blood specimen | | (specimen) | + + + +---------+ + + | Performing | Address | City/State/Zipcode | Phone Number | | Organization | | | | + +---------+ + + | EXTERNAL LAB | | | | + +---------+ + + Magnesium (02/10/2014 5:49 AM PST) + + + + + + | Component | Value | Ref Range | Performed | Pathologist | | | | | At | Signature | + + + + + + | Magnesium | 1.1 (L)Comment: Testing | 1.7 - 2.4 mg/dL | EXTERNAL | | | | performed at [facility], [address] | | LAB | | | | [address], | | | | | | [place] [address] | | | | + + + + + + + + | Specimen | + + | Blood specimen | | (specimen) | + + + +---------+ + + | Performing | Address | City/State/Zipcode | Phone Number | | Organization | | | | + +---------+ + + | EXTERNAL LAB | | | | + +---------+ + + Comprehensive Metabolic Panel (02/10/2014 5:49 AM PST) + + + + + + | Component | Value | Ref Range | Performed | Pathologist | | | | | At | Signature | + + + + + + | Na | 136Comment: Testing | 135 - 143 | EXTERNAL | | | | performed at [facility], [address] | mmol/L | LAB | | | | [address], | | | | | | [place] [address] | | | | + + + + + + | K | 3.2 (L)Comment: Testing | 3.5 - 4.9 | EXTERNAL | | | | performed at [facility], [address] | mmol/L | LAB | | | | [address], | | | | | | [place] [address] | | | | + + + + + + | Cl | 107Comment: Testing | 99 - 109 mmol/L | EXTERNAL | | | | performed at [facility], [address] | | LAB | | | [address], | | | | | | [place] [address] | | | | + + + + + + | CO2 | 22 (L)Comment: Testing | 23 - 32 mmol/L | EXTERNAL | | | | performed at [facility], [address] | | LAB | | | | [address], | | | | | | [place] [address] | | | | + + + + + + | Anion Gap | 10Comment: Testing | 5 - 20 mmol/L | EXTERNAL | | | | performed at [facility], [address] | | LAB | | | | [address], | | | | | | [place] [address] | | | | + + + + + + | Glucose, | 113 (H)Comment: Testing | 65 - 99 mg/dL | EXTERNAL | | | Fasting | performed at [facility], [address] | | LAB | | | | [address], | | | | | | [place] [address] | | | | + + + + + + | BUN | 6 (L)Comment: Testing | 8 - 25 mg/dL | EXTERNAL | | | | performed at [facility], [address] | | LAB | | | | [address], | | | | | | [place] [address] | | | | + + + + + + | Creatinine | 0.59Comment: Testing | 0.50 - 1.00 | EXTERNAL | | | | performed at [facility], [address] | mg/dL | LAB | | | | [address], | | | | | | [place] [address] | | | | + + + + + + | BUN/Creatin | 10Comment: Testing | | EXTERNAL | | | ine Ratio | performed at [facility], [address] | | LAB | | | | [address], | | | | | | [place] [address] | | | | + + + + + + | Calcium | 8.0 (L)Comment: Testing | 8.5 - 10.2 | EXTERNAL | | | | performed at [facility], [address] | mg/dL | LAB | | | | [address], | | | | | | [place] [address] | | | | + + + + + + | Protein, | 5.3 (L)Comment: Testing | 6.3 - 8.2 g/dL | EXTERNAL | | | Total | performed at [facility], [address] | | LAB | | | | [address], | | | | | | [place] [address] | | | | + + + + + + | Albumin | 2.2 (L)Comment: Testing | 3.6 - 5.0 g/dL | EXTERNAL | | | | performed at [facility], [address] | | LAB | | | | [address], | | | | | | [place] [address] | | | | + + + + + + | Globulin | 3.1Comment: Testing | 1.3 - 4.9 g/dL | EXTERNAL | | | | performed at [facility], [address] | | LAB | | | | [address], | | | | | | [place] [address] | | | | + + + + + + | A/G Ratio | 0.7 (L)Comment: Testing | 1.0 - 2.4 | EXTERNAL | | | | performed at [facility], [address] | | LAB | | | | [address], | | | | | | [place] [address] | | | | + + + + + + | Bilirubin | 1.0Comment: Testing | 0.1 - 1.5 mg/dL | EXTERNAL | | | Total | performed at [facility], [address] | | LAB | | | | [address], | | | | | | [place] [address] | | | | + + + + + + | ALP, | 98Comment: Testing | 35 - 115 U/L | EXTERNAL | | | External | performed at [facility], [address] | | LAB | | | | [address], | | | | | | [place] [address] | | | | + + + + + + | AST | 41Comment: Testing | 10 - 45 U/L | EXTERNAL | | | | performed at [facility], [address] | | LAB | | | | [address], | | | | | | [place] [address] | | | | + + + + + + | ALT | 14Comment: Testing | 10 - 65 U/L | EXTERNAL | | | | performed at [facility], [address] | | LAB | | | | [address], | | | | | | [place] [address] | | | | + + + + + + | Estimated | >60Comment: GFR <60: | mL/min/1.73m2 | EXTERNAL | | | GFR | CHRONIC KIDNEY DISEASE, | | LAB | | | | IF FOUND OVER A 3 MONTH | | | | | | PERIOD.GFR <15: KIDNEY | | | | | | FAILURE.FOR | | | | | | AMERICANS, MULTIPLY THE | | | | | | CALCULATED GFR BY | | | | | | 1.210.Testing performed | | | | | | at [facility], [address] | | | | | | [address], | | | | | | [place] [address] | | | | + + + + + + + + | Specimen | + + | Blood specimen | | (specimen) | + + + +---------+ + + | Performing | Address | City/State/Zipcode | Phone Number | | Organization | | | | + +---------+ + + | EXTERNAL LAB | | | | + +---------+ + + HISTORICAL MICROBIOLOGY RESULT (02/09/2014 7:38 PM PST) + + | Specimen | + + | Stool specimen | | (specimen) | + + + + + | Narrative | Performed At | + + + | Toxigenic C Difficile NEGATIVE Testing | EXTERNAL LAB | | performed at [facility];[address] [place] [address];[place] [address] 027 NAP1 BI | | | 027 NAP1 BI PRESUMPTIVE NEGATIVE | | | Detection of 027 NAP1 BI strains of C. difficile is presumptive and | | | for epidemiological purposes and not intended to guide or monitor | | | treatment for C. difficile infections. Testing performed at [facility];[address] | | | [facility];[place] [address] | | + + + + +---------+ + + | Performing | Address | City/State/Zipcode | Phone Number | | Organization | | | | + +---------+ + + | EXTERNAL LAB | | | | + +---------+ + + Osmolality, Urine (02/09/2014 1:03 PM PST) + + + + + + | Component | Value | Ref Range | Performed | Pathologist | | | | | At | Signature | + + + + + + | OSMO URINE | 317Comment: Testing | 50 - 1,200 | EXTERNAL | | | | performed at [facility];[address] | mOsm/kg | LAB | | | | [address];[place] | | | | | | [address] | | | | + + + + + + + + | Specimen | + + | Urine specimen | | (specimen) | + + + +---------+ + + | Performing | Address | City/State/Zipcode | Phone Number | | Organization | | | | + +---------+ + + | EXTERNAL LAB | | | | + +---------+ + + Sodium, Urine, Random (02/09/2014 1:00 PM PST) + + + + + + | Component | Value | Ref Range | Performed | Pathologist | | | | | At | Signature | + + + + + + | Sodium, | 120 (H)Comment: Testing | 90 - 104 mmol/L | EXTERNAL | | | Urine | performed at [facility], [address] | | LAB | | | Random | [place], | | | | | | [place] [address] | | | | + + + + + + + + | Specimen | + + | Urine specimen | | (specimen) | + + + +---------+ + + | Performing | Address | City/State/Zipcode | Phone Number | | Organization | | | | + +---------+ + + | EXTERNAL LAB | | | | + +---------+ + + XR Chest 1 Vw (02/09/2014 9:35 AM PST) + + | Specimen | + + | | + + + + + | Impressions | Performed At | + + + | 1. Persistent chronic bronchitis. 2. Superimposed acute | | | interstitial process cannot be excluded. 3. Borderline cardiac | | | enlargement, accentuated due to low lung volumes. Electronically | | | signed by Dave Tesfaye MD on 02/09/2014 9:41 AM | | + + + + + + | Narrative | Performed At | + + + | HISTORY: Hepatic encephalopathy. Seizure. UTI. COMPARISON: | | | 02/07/14. TECHNIQUE: AP portable film of the chest at 09 29 hours | | | FINDINGS: Borderline cardiac enlargement. Persistent low lung | | | volumes. Persistent interstitial prominence centrally, with mild | | | central bronchial wall thickening, stable. I suspect an element of | | | chronic bronchitis. Superimposed acute interstitial process not | | | excluded. | | + + + + + | Procedure Note | + + | Jermaine, Rad Conversion - 11/22/2018 10:10 AM PDT HISTORY:Hepatic encephalopathy. | | Seizure. UTI. COMPARISON:02/07/14. TECHNIQUE:AP portable film of the chest at 09 29 hours | | FINDINGS:Borderline cardiac enlargement. Persistent low lung volumes. Persistent | | interstitial prominence centrally, with mild central bronchial wall thickening, stable. | | I suspect an element of chronic bronchitis. Superimposed acute interstitial process not | | excluded. IMPRESSION: 1. Persistent chronic bronchitis.2. Superimposed acute | | interstitial process cannot be excluded.3. Borderline cardiac enlargement, accentuated | | due to low lung volumes. | | | |FINDINGS: | |Borderline cardiac enlargement. Persistent low lung volumes. Persistent interstitial promin ence centrally, with mild central bronchial wall thickening, stable. I suspect an element of chronic bronchitis. Superimposed acute interstitial process not | |excluded. | | | |IMPRESSION: | |1. Persistent chronic bronchitis. | |2. Superimposed acute interstitial process cannot be excluded. | |3. Borderline cardiac enlargement, accentuated due to low lung volumes. | | | | | + + External Lab: JONATHAN (02/09/2014 5:18 AM PST) + + + + + + | Component | Value | Ref Range | Performed | Pathologist | | | | | At | Signature | + + + + + + | WBC | 6.0Comment: Testing | 3.8 - 11.0 K/uL | EXTERNAL | | | | performed at [facility];[address] | | LAB | | | | [address];[place] | | | | | | [address] | | | | + + + + + + | Non- | 3.04 (L)Comment: Testing | 3.70 - 5.10 | EXTERNAL | | | Red Blood | performed at [facility];[address] | M/uL | LAB | | | Cells | [address];[place] | | | | | Counted | [address] | | | | + + + + + + | Hemoglobin | 9.3 (L)Comment: Testing | 11.3 - 15.5 | EXTERNAL | | | | performed at [facility];[address] | g/dL | LAB | | | | [address];[place] | | | | | | [address] | | | | + + + + + + | Hematocrit, | 27.9 (L)Comment: Testing | 34.0 - 46.0 % | EXTERNAL | | | POC | performed at [facility];[address] | | LAB | | | | [address];[place] | | | | | | [address] | | | | + + + + + + | MCV | 91.8Comment: Testing | 80.0 - 100.0 fl | EXTERNAL | | | | performed at [facility];[address] | | LAB | | | | [address];[place] | | | | | | [address] | | | | + + + + + + | MCH | 30.5Comment: Testing | 27.0 - 34.0 pg | EXTERNAL | | | | performed at [facility];[address] | | LAB | | | | [address];[place] | | | | | | [address] | | | | + + + + + + | MCHC | 33.3Comment: Testing | 32.0 - 35.5 | EXTERNAL | | | | performed at [facility];[address] | g/dL | LAB | | | | [address];[place] | | | | | | [address] | | | | + + + + + + | RDW-CV | 55.1 (H)Comment: Testing | 37 - 53 fl | EXTERNAL | | | | performed at [facility];[address] | | LAB | | | | [address];[place] | | | | | | [address] | | | | + + + + + + | Platelet | 70 (L)Comment: Testing | 150 - 400 K/uL | EXTERNAL | | | Count | performed at [facility];[address] | | LAB | | | Plasma | [address];[place] | | | | | | [address] | | | | + + + + + + | MPV | 8.5Comment: Testing | fl | EXTERNAL | | | | performed at [facility];[address] | | LAB | | | | [address];[place] | | | | | | [address] | | | | + + + + + + | Differentia | MANUALComment: Testing | | EXTERNAL | | | l Type | performed at [facility];[address] | | LAB | | | | [address];[place] | | | | | | [address] | | | | + + + + + + | Segmented | 70Comment: Testing | % | EXTERNAL | | | Neutrophils | performed at [facility];[address] | | LAB | | | Manual | [address];[place] | | | | | | [address] | | | | + + + + + + | % Bands | 5Comment: Testing | % | EXTERNAL | | | | performed at [facility];[address] | | LAB | | | | [address];[place] | | | | | | [address] | | | | + + + + + + | Lymphocytes | 10Comment: Testing | % | EXTERNAL | | | Manual | performed at [facility];[address] | | LAB | | | | [address];[place] | | | | | | [address] | | | | + + + + + + | Monocytes | 11Comment: Testing | % | EXTERNAL | | | Manual | performed at [facility];[address] | | LAB | | | | [address];[place] | | | | | | [address] | | | | + + + + + + | Eosinophils | 4Comment: Testing | % | EXTERNAL | | | Manual | performed at [facility];[address] | | LAB | | | | [address];[place] | | | | | | [address] | | | | + + + + + + | Absolute | 4.2Comment: Testing | 1.9 - 7.4 K/uL | EXTERNAL | | | Neutrophils | performed at [facility];[address] | | LAB | | | | [address];[place] | | | | | | [address] | | | | + + + + + + | Bands | 0.3 (H)Comment: Testing | 0 - 0.2 K/uL | EXTERNAL | | | Manual | performed at [facility];[address] | | LAB | | | | [address];[place] | | | | | | [address] | | | | + + + + + + | Absolute | 0.6 (L)Comment: Testing | 1.0 - 3.9 K/uL | EXTERNAL | | | Lymphocytes | performed at [facility];[address] | | LAB | | | | [address];[place] | | | | | | [address] | | | | + + + + + + | Absolute | 0.7Comment: Testing | 0 - 0.8 K/uL | EXTERNAL | | | Monocytes | performed at [facility];[address] | | LAB | | | | [address];[place] | | | | | | [address] | | | | + + + + + + | Absolute | 0.2Comment: Testing | 0 - 0.5 K/uL | EXTERNAL | | | Eosinophils | performed at [facility];[address] | | LAB | | | | [address];[place] | | | | | | [address] | | | | + + + + + + | Platelet | DECREASEDComment: | | EXTERNAL | | | Estimate | Testing performed at | | LAB | | | | [facility];[address];[place] [address] | | | | + + + + + + | RBC | NORMAL RBC MORPHComment: | | EXTERNAL | | | Morphology | Testing performed at | | LAB | | | | [facility];[address];[place] [address] | | | | + + + + + + + + | Specimen | + + | Blood specimen | | (specimen) | + + + +---------+ + + | Performing | Address | City/State/Zipcode | Phone Number | | Organization | | | | + +---------+ + + | EXTERNAL LAB | | | | + +---------+ + + Phosphorus (02/09/2014 5:18 AM PST) + + + + + + | Component | Value | Ref Range | Performed | Pathologist | | | | | At | Signature | + + + + + + | PHOSPHORUS | 4.9 (H)Comment: Testing | 2.3 - 4.8 mg/dL | EXTERNAL | | | | performed at [facility], [address] | | LAB | | | | [address], | | | | | | [place] [address] | | | | + + + + + + + + | Specimen | + + | Blood specimen | | (specimen) | + + + +---------+ + + | Performing | Address | City/State/Zipcode | Phone Number | | Organization | | | | + +---------+ + + | EXTERNAL LAB | | | | + +---------+ + + Osmolality, Serum (02/09/2014 5:18 AM PST) + + + + + + | Component | Value | Ref Range | Performed | Pathologist | | | | | At | Signature | + + + + + + | Osmolality, | 284Comment: Testing | 275 - 295 | EXTERNAL | | | Serum | performed at [facility];[address] | mOsm/kg | LAB | | | | [address];[place], [place] | | | | | | [address] | | | | + + + + + + + + | Specimen | + + | Blood specimen | | (specimen) | + + + +---------+ + + | Performing | Address | City/State/Zipcode | Phone Number | | Organization | | | | + +---------+ + + | EXTERNAL LAB | | | | + +---------+ + + Magnesium (02/09/2014 5:18 AM PST) + + + + + + | Component | Value | Ref Range | Performed | Pathologist | | | | | At | Signature | + + + + + + | Magnesium | 1.4 (L)Comment: Testing | 1.7 - 2.4 mg/dL | EXTERNAL | | | | performed at [facility], [address] | | LAB | | | | [address], | | | | | | [place] [address] | | | | + + + + + + + + | Specimen | + + | Blood specimen | | (specimen) | + + + +---------+ + + | Performing | Address | City/State/Zipcode | Phone Number | | Organization | | | | + +---------+ + + | EXTERNAL LAB | | | | + +---------+ + + Ammonia (02/09/2014 5:18 AM PST) + + + + + + | Component | Value | Ref Range | Performed | Pathologist | | | | | At | Signature | + + + + + + | Ammonia | 47 (H)Comment: Testing | umol/L | EXTERNAL | | | | performed at [facility] [place] | | LAB | | | | [address];[place] | | | | | | [id number] | | | | + + + + + + + + | Specimen | + + | | + + + +---------+ + + | Performing | Address | City/State/Zipcode | Phone Number | | Organization | | | | + +---------+ + + | EXTERNAL LAB | | | | + +---------+ + + Comprehensive Metabolic Panel (02/09/2014 5:18 AM PST) + + + + + + | Component | Value | Ref Range | Performed | Pathologist | | | | | At | Signature | + + + + + + | Na | 134 (L)Comment: Testing | 135 - 143 | EXTERNAL | | | | performed at [facility], [address] | mmol/L | LAB | | | | [address], | | | | | | [place] [address] | | | | + + + + + + | K | 3.4 (L)Comment: Testing | 3.5 - 4.9 | EXTERNAL | | | | performed at [facility], [address] | mmol/L | LAB | | | | [address], | | | | | | [place] [address] | | | | + + + + + + | Cl | 105Comment: Testing | 99 - 109 mmol/L | EXTERNAL | | | | performed at [facility], [address] | | LAB | | | | [address], | | | | | | [place] [address] | | | | + + + + + + | CO2 | 22 (L)Comment: Testing | 23 - 32 mmol/L | EXTERNAL | | | | performed at [facility], [address] | | LAB | | | | [address], | | | | | | [place] [address] | | | | + + + + + + | Anion Gap | 10Comment: Testing | 5 - 20 mmol/L | EXTERNAL | | | | performed at [facility], [address] | | LAB | | | | [address], | | | | | | [place] [address] | | | | + + + + + + | Glucose, | 95Comment: Testing | 65 - 99 mg/dL | EXTERNAL | | | Fasting | performed at [facility], [address] | | LAB | | | | [address], | | | | | | [place] [address] | | | | + + + + + + | BUN | 5 (L)Comment: Testing | 8 - 25 mg/dL | EXTERNAL | | | | performed at [facility], [address] | | LAB | | | | [address], | | | | | | [place] [address] | | | | + + + + + + | Creatinine | 0.57Comment: Testing | 0.50 - 1.00 | EXTERNAL | | | | performed at [facility], [address] | mg/dL | LAB | | | | [address], | | | | | | [place] [address] | | | | + + + + + + | BUN/Creatin | 9Comment: Testing | | EXTERNAL | | | ine Ratio | performed at [facility], [address] | | LAB | | | | [address], | | | | | | [place] [address] | | | | + + + + + + | Calcium | 8.0 (L)Comment: Testing | 8.5 - 10.2 | EXTERNAL | | | | performed at [facility], [address] | mg/dL | LAB | | | | [address], | | | | | | [place] [address] | | | | + + + + + + | Protein, | 5.6 (L)Comment: Testing | 6.3 - 8.2 g/dL | EXTERNAL | | | Total | performed at [facility], [address] | | LAB | | | | [address], | | | | | | [place] [address] | | | | + + + + + + | Albumin | 2.0 (L)Comment: Testing | 3.6 - 5.0 g/dL | EXTERNAL | | | | performed at [facility], [address] | | LAB | | | | [address], | | | | | | [place] [address] | | | | + + + + + + | Globulin | 3.6Comment: Testing | 1.3 - 4.9 g/dL | EXTERNAL | | | | performed at [facility], [address] | | LAB | | | | [address], | | | | | | [place] [address] | | | | + + + + + + | A/G Ratio | 0.6 (L)Comment: Testing | 1.0 - 2.4 | EXTERNAL | | | | performed at [facility], [address] | | LAB | | | | [address], | | | | | | [place], [place] [address] | | | | + + + + + + | Bilirubin | 1.3Comment: Testing | 0.1 - 1.5 mg/dL | EXTERNAL | | | Total | performed at [facility], [address] | | LAB | | | | [address], | | | | | | [place] [address] | | | | + + + + + + | ALP, | 107Comment: Testing | 35 - 115 U/L | EXTERNAL | | | External | performed at [facility], [address] | | LAB | | | | [address], | | | | | | [place] [address] | | | | + + + + + + | AST | 62 (H)Comment: Testing | 10 - 45 U/L | EXTERNAL | | | | performed at [facility], [address] | | LAB | | | | [address], | | | | | | [place] [address] | | | | + + + + + + | ALT | 19Comment: Testing | 10 - 65 U/L | EXTERNAL | | | | performed at [facility], [address] | | LAB | | | | [address], | | | | | | [place] [address] | | | | + + + + + + | Estimated | >60Comment: GFR <60: | mL/min/1.73m2 | EXTERNAL | | | GFR | CHRONIC KIDNEY DISEASE, | | LAB | | | | IF FOUND OVER A 3 MONTH | | | | | | PERIOD.GFR <15: KIDNEY | | | | | | FAILURE.FOR | | | | | | AMERICANS, MULTIPLY THE | | | | | | CALCULATED GFR BY | | | | | | 1.210.Testing performed | | | | | | at [facility], [address] | | | | | | [address], | | | | | | [place] [address] | | | | + + + + + + + + | Specimen | + + | Blood specimen | | (specimen) | + + + +---------+ + + | Performing | Address | City/State/Zipcode | Phone Number | | Organization | | | | + +---------+ + + | EXTERNAL LAB | | | | + +---------+ + + Phosphorus (02/08/2014 10:52 PM PST) + + + + + + | Component | Value | Ref Range | Performed | Pathologist | | | | | At | Signature | + + + + + + | PHOSPHORUS | 5.5 (H)Comment: Testing | 2.3 - 4.8 mg/dL | EXTERNAL | | | | performed at [facility] | | LAB | | | | [address];[place] | | | | | | [address] | | | | + + + + + + + + | Specimen | + + | Blood specimen | | (specimen) | + + + +---------+ + + | Performing | Address | City/State/Zipcode | Phone Number | | Organization | | | | + +---------+ + + | EXTERNAL LAB | | | | + +---------+ + + Magnesium (02/08/2014 10:52 PM PST) + + + + + + | Component | Value | Ref Range | Performed | Pathologist | | | | | At | Signature | + + + + + + | Magnesium | 1.2 (L)Comment: Testing | 1.7 - 2.4 mg/dL | EXTERNAL | | | | performed at [facility];[address] | | LAB | | | | [address];[place], [place] | | | | | | [address] | | | | + + + + + + + + | Specimen | + + | Blood specimen | | (specimen) | + + + +---------+ + + | Performing | Address | City/State/Zipcode | Phone Number | | Organization | | | | + +---------+ + + | EXTERNAL LAB | | | | + +---------+ + + External Lab: CBC (02/08/2014 5:40 AM PST) + + + + + + | Component | Value | Ref Range | Performed | Pathologist | | | | | At | Signature | + + + + + + | WBC | 4.7Comment: Testing | 3.8 - 11.0 K/uL | EXTERNAL | | | | performed at [facility], [address] | | LAB | | | | [address], | | | | | | [place] [address] | | | | + + + + + + | Non- | 3.34 (L)Comment: Testing | 3.70 - 5.10 | EXTERNAL | | | Red Blood | performed at [facility], [address] | M/uL | LAB | | | Cells | [address], | | | | | Counted | [place] [address] | | | | + + + + + + | Hemoglobin | 10.4 (L)Comment: Testing | 11.3 - 15.5 | EXTERNAL | | | | performed at [facility], [address] | g/dL | LAB | | | | [address], | | | | | | [place] [address] | | | | + + + + + + | Hematocrit, | 31.3 (L)Comment: Testing | 34.0 - 46.0 % | EXTERNAL | | | POC | performed at [facility], [address] | | LAB | | | | [address], | | | | | | [place] [address] | | | | + + + + + + | MCV | 93.7Comment: Testing | 80.0 - 100.0 fl | EXTERNAL | | | | performed at [facility], [address] | | LAB | | | | [address], | | | | | | [place] [address] | | | | + + + + + + | MCH | 31.1Comment: Testing | 27.0 - 34.0 pg | EXTERNAL | | | | performed at [facility], [address] | | LAB | | | | [address], | | | | | | [place] [address] | | | | + + + + + + | MCHC | 33.2Comment: Testing | 32.0 - 35.5 | EXTERNAL | | | | performed at [facility], [address] | g/dL | LAB | | | | [address], | | | | | | [place] [address] | | | | + + + + + + | RDW-CV | 53.4 (H)Comment: Testing | 37 - 53 fl | EXTERNAL | | | | performed at [facility], [address] | | LAB | | | | [address], | | | | | | [place] [address] | | | | + + + + + + | Platelet | 67 (L)Comment: Testing | 150 - 400 K/uL | EXTERNAL | | | Count | performed at [facility], [address] | | LAB | | | Plasma | [address], | | | | | | [place] [address] | | | | + + + + + + | MPV | 8.5Comment: Testing | fl | EXTERNAL | | | | performed at [facility], [address] | | LAB | | | | [address], | | | | | | [place] [address] | | | | + + + + + + | Differentia | AUTOMATEDComment: | | EXTERNAL | | | l Type | Testing performed at | | LAB | | | | [facility], [address] | | | | | | [place] | | | | | | [address] | | | | + + + + + + | % Segmented | 70.1Comment: Testing | % | EXTERNAL | | | | performed at [facility], [address] | | LAB | | | Neutrophils | [address], | | | | | | [place] [address] | | | | + + + + + + | % | 9.7Comment: Testing | % | EXTERNAL | | | Lymphocytes | performed at [facility], [address] | | LAB | | | | [address], | | | | | | [place] [address] | | | | + + + + + + | % Monocytes | 16.7Comment: Testing | % | EXTERNAL | | | | performed at [facility], [address] | | LAB | | | | [address], | | | | | | [place] [address] | | | | + + + + + + | % | 2.8Comment: Testing | % | EXTERNAL | | | Eosinophils | performed at [facility], [address] | | LAB | | | | [address], | | | | | | [place] [address] | | | | + + + + + + | % Basophils | 0.7Comment: Testing | % | EXTERNAL | | | | performed at [facility], [address] | | LAB | | | | [address], | | | | | | [place] [address] | | | | + + + + + + | Absolute | 3.3Comment: Testing | 1.9 - 7.4 K/uL | EXTERNAL | | | Segmented | performed at [facility], [address] | | LAB | | | Neutrophils | [address], | | | | | | [place] [address] | | | | + + + + + + | Absolute | 0.5 (L)Comment: Testing | 1.0 - 3.9 K/uL | EXTERNAL | | | Lymphocytes | performed at [facility], [address] | | LAB | | | | [address], | | | | | | [place] [address] | | | | + + + + + + | Absolute | 0.8Comment: Testing | 0 - 0.8 K/uL | EXTERNAL | | | Monocytes | performed at [facility], [address] | | LAB | | | | [address], | | | | | | [place] [address] | | | | + + + + + + | Absolute | 0.1Comment: Testing | 0 - 0.5 K/uL | EXTERNAL | | | Eosinophils | performed at [facility], [address] | | LAB | | | | [address], | | | | | | [place] [address] | | | | + + + + + + | Absolute | 0.0Comment: Testing | 0 - 0.1 K/uL | EXTERNAL | | | Basophils | performed at [facility], [address] | | LAB | | | | [address], | | | | | | [place] [address] | | | | + + + + + + + + | Specimen | + + | Blood specimen | | (specimen) | + + + +---------+ + + | Performing | Address | City/State/Zipcode | Phone Number | | Organization | | | | + +---------+ + + | EXTERNAL LAB | | | | + +---------+ + + Phosphorus (02/08/2014 5:40 AM PST) + + + + + + | Component | Value | Ref Range | Performed | Pathologist | | | | | At | Signature | + + + + + + | PHOSPHORUS | 1.7 (L)Comment: Testing | 2.3 - 4.8 mg/dL | EXTERNAL | | | | performed at [facility], [address] | | LAB | | | | [address], | | | | | | [place] [address] | | | | + + + + + + + + | Specimen | + + | Blood specimen | | (specimen) | + + + +---------+ + + | Performing | Address | City/State/Zipcode | Phone Number | | Organization | | | | + +---------+ + + | EXTERNAL LAB | | | | + +---------+ + + Magnesium (02/08/2014 5:40 AM PST) + + + + + + | Component | Value | Ref Range | Performed | Pathologist | | | | | At | Signature | + + + + + + | Magnesium | 1.4 (L)Comment: Testing | 1.7 - 2.4 mg/dL | EXTERNAL | | | | performed at [facility], [address] | | LAB | | | | [address], | | | | | | [place] [address] | | | | + + + + + + + + | Specimen | + + | Blood specimen | | (specimen) | + + + +---------+ + + | Performing | Address | City/State/Zipcode | Phone Number | | Organization | | | | + +---------+ + + | EXTERNAL LAB | | | | + +---------+ + + Ammonia (02/08/2014 5:40 AM PST) + + + + + + | Component | Value | Ref Range | Performed | Pathologist | | | | | At | Signature | + + + + + + | Ammonia | 61 (H)Comment: Testing | umol/L | EXTERNAL | | | | performed at [facility];[address] | | LAB | | | | [address];[place] | | | | | | [address] | | | | + + + + + + + + | Specimen | + + | Blood specimen | | (specimen) | + + + +---------+ + + | Performing | Address | City/State/Zipcode | Phone Number | | Organization | | | | + +---------+ + + | EXTERNAL LAB | | | | + +---------+ + + Basic Metabolic Panel (02/08/2014 5:40 AM PST) + + + + + + | Component | Value | Ref Range | Performed | Pathologist | | | | | At | Signature | + + + + + + | Na | 129 (L)Comment: Testing | 135 - 143 | EXTERNAL | | | | performed at [facility], [address] | mmol/L | LAB | | | | [address], | | | | | | [place] [address] | | | | + + + + + + | K | 3.9Comment: Testing | 3.5 - 4.9 | EXTERNAL | | | | performed at [facility], [address] | mmol/L | LAB | | | | [address], | | | | | | [place] [address] | | | | + + + + + + | Cl | 103Comment: Testing | 99 - 109 mmol/L | EXTERNAL | | | | performed at [facility], [address] | | LAB | | | | [address], | | | | | | [place] [address] | | | | + + + + + + | CO2 | 22 (L)Comment: Testing | 23 - 32 mmol/L | EXTERNAL | | | | performed at [facility], [address] | | LAB | | | | [address], | | | | | | [place] [address] | | | | + + + + + + | Anion Gap | 8Comment: Testing | 5 - 20 mmol/L | EXTERNAL | | | | performed at [facility], [address] | | LAB | | | | [address], | | | | | | [place] [address] | | | | + + + + + + | Glucose, | 98Comment: Testing | 65 - 99 mg/dL | EXTERNAL | | | Fasting | performed at [facility], [address] | | LAB | | | | [address], | | | | | | [place], [place] [address] | | | | + + + + + + | BUN | 5 (L)Comment: Testing | 8 - 25 mg/dL | EXTERNAL | | | | performed at [facility], [address] | | LAB | | | | [address], | | | | | | [place] [address] | | | | + + + + + + | Creatinine | 0.51Comment: Testing | 0.50 - 1.00 | EXTERNAL | | | | performed at [facility], [address] | mg/dL | LAB | | | | [address], | | | | | | [place] [address] | | | | + + + + + + | BUN/Creatin | 10Comment: Testing | | EXTERNAL | | | ine Ratio | performed at [facility], [address] | | LAB | | | | [facility], | | | | | | [place] [address] | | | | + + + + + + | Calcium | 7.9 (L)Comment: Testing | 8.5 - 10.2 | EXTERNAL | | | | performed at [facility], [address] | mg/dL | LAB | | | | [address], | | | | | | [place] [address] | | | | + + + + + + | Estimated | >60Comment: GFR <60: | mL/min/1.73m2 | EXTERNAL | | | GFR | CHRONIC KIDNEY DISEASE, | | LAB | | | | IF FOUND OVER A 3 MONTH | | | | | | PERIOD.GFR <15: KIDNEY | | | | | | FAILURE.FOR | | | | | | AMERICANS, MULTIPLY THE | | | | | | CALCULATED GFR BY | | | | | | 1.210.Testing performed | | | | | | at [facility], [address] | | | | | | [address], | | | | | | [place] [address] | | | | + + + + + + + + | Specimen | + + | Blood specimen | | (specimen) | + + + +---------+ + + | Performing | Address | City/State/Zipcode | Phone Number | | Organization | | | | + +---------+ + + | EXTERNAL LAB | | | | + +---------+ + + Potassium (02/07/2014 6:24 PM PDT) + + + + + + | Component | Value | Ref Range | Performed | Pathologist | | | | | At | Signature | + + + + + + | K | 3.2 (L)Comment: Testing | 3.5 - 4.9 | EXTERNAL | | | | performed at [facility];[address] | mmol/L | LAB | | | | [address];[place] | | | | | | [address] | | | | + + + + + + + + | Specimen | + + | Blood specimen | | (specimen) | + + + +---------+ + + | Performing | Address | City/State/Zipcode | Phone Number | | Organization | | | | + +---------+ + + | EXTERNAL LAB | | | | + +---------+ + + Magnesium (02/07/2014 6:24 PM PDT) + + + + + + | Component | Value | Ref Range | Performed | Pathologist | | | | | At | Signature | + + + + + + | Magnesium | 1.3 (L)Comment: Testing | 1.7 - 2.4 mg/dL | EXTERNAL | | | | performed at [facility] | | LAB | | | | [address] [facility];[place], [place] | | | | | | [address] | | | | + + + + + + + + | Specimen | + + | Blood specimen | | (specimen) | + + + +---------+ + + | Performing | Address | City/State/Zipcode | Phone Number | | Organization | | | | + +---------+ + + | EXTERNAL LAB | | | | + +---------+ + + XR Chest 2 Vws (02/07/2014 8:00 AM PDT) + + | Specimen | + + | | + + + + + | Impressions | Performed At | + + + | FINDINGS/ IMPRESSION: Low lung volumes. Heart size and | | | mediastinal contours are unchanged. No pneumothorax, no pleural | | | effusion. Left basilar atelectasis/aspiration. No acute | | | osseous abnormality. Electronically signed by Landry Velarde MD on | | | 02/07/2014 8:24 AM | | + + + + + + | Narrative | Performed At | + + + | SHAILA SON 1970 43 years Female XR CHEST 2 VIEW FRONTAL | | | AND LATERAL 02/07/2014 8:00 AM INDICATION: Shortness of breath | | | COMPARISON: March 27, 2013 TECHNIQUE: Two view chest, PA and | | | lateral views | | + + + + + | Procedure Note | + + | Edgardo Dean Conversion - 11/22/2018 10:10 AM PDT SHAILA SON | | 1970 | | 43 years Female | | XR CHEST 2 VIEW FRONTAL AND LATERAL | | 02/07/2014 8:00 AM | | | | INDICATION: Shortness of breath | | | | COMPARISON: March 27, 2013 | | | | TECHNIQUE: Two view chest, PA and lateral views | | | | IMPRESSION: | | FINDINGS/ IMPRESSION: | | | | Low lung volumes. Heart size and mediastinal contours are unchanged. | | | | No pneumothorax, no pleural effusion. | | | | Left basilar atelectasis/aspiration. | | | | No acute osseous abnormality. | | | | | | | + + External Lab: JONATHAN (02/07/2014 7:30 AM PDT) + + + + + + | Component | Value | Ref Range | Performed | Pathologist | | | | | At | Signature | + + + + + + | WBC | 3.7 (L)Comment: Testing | 3.8 - 11.0 K/uL | EXTERNAL | | | | performed at [facility];[address] | | LAB | | | | [address];[place] | | | | | | [address] | | | | + + + + + + | Non- | 2.89 (L)Comment: Testing | 3.70 - 5.10 | EXTERNAL | | | Red Blood | performed at [facility];[address] | M/uL | LAB | | | Cells | [address];[place] | | | | | Counted | [id number] | | | | + + + + + + | Hemoglobin | 8.9 (L)Comment: Testing | 11.3 - 15.5 | EXTERNAL | | | | performed at [facility];[address] | g/dL | LAB | | | | [address];[place] | | | | | | [address] | | | | + + + + + + | Hematocrit, | 26.3 (L)Comment: Testing | 34.0 - 46.0 % | EXTERNAL | | | POC | performed at [facility];[address] | | LAB | | | | [address];[place] | | | | | | [address] | | | | + + + + + + | MCV | 90.9Comment: Testing | 80.0 - 100.0 fl | EXTERNAL | | | | performed at [facility];[address] | | LAB | | | | [address];[place] | | | | | | [address] | | | | + + + + + + | MCH | 30.7Comment: Testing | 27.0 - 34.0 pg | EXTERNAL | | | | performed at [facility];[address] | | LAB | | | | [address];[place] | | | | | | [address] | | | | + + + + + + | MCHC | 33.8Comment: Testing | 32.0 - 35.5 | EXTERNAL | | | | performed at [facility];[address] | g/dL | LAB | | | | [address];[place] | | | | | | [address] | | | | + + + + + + | RDW-CV | 52.5Comment: Testing | 37 - 53 fl | EXTERNAL | | | | performed at [facility];[address] | | LAB | | | | [address];[place] | | | | | | [address] | | | | + + + + + + | Platelet | 49 (LL)Comment: PLT | 150 - 400 K/uL | EXTERNAL | | | Count | PHONED TO FREDDY Chen | | LAB | | | Plasma | AT 0805 BY [facility] BACK | | | | | | RESULTS VERIFIEDTesting | | | | | | performed at [facility];[address] | | | | | | [address];[place] | | | | | | [address] | | | | + + + + + + | MPV | 8.3Comment: Testing | fl | EXTERNAL | | | | performed at [facility];[address] | | LAB | | | | [address];[place] | | | | | | [address] | | | | + + + + + + | Differentia | AUTOMATEDComment: | | EXTERNAL | | | l Type | Testing performed at | | LAB | | | | [facility];[address];[place] [address] | | | | + + + + + + | % Segmented | 59.0Comment: Testing | % | EXTERNAL | | | | performed at [facility];[address] | | LAB | | | Neutrophils | [address];[place] | | | | | | [address] | | | | + + + + + + | % | 16.7Comment: Testing | % | EXTERNAL | | | Lymphocytes | performed at [facility];[address] | | LAB | | | | [address];[place] | | | | | | [address] | | | | + + + + + + | % Monocytes | 21.8Comment: Testing | % | EXTERNAL | | | | performed at [facility];[address] | | LAB | | | | [address];[place] | | | | | | [address] | | | | + + + + + + | % | 1.4Comment: Testing | % | EXTERNAL | | | Eosinophils | performed at [facility];[address] | | LAB | | | | [address];[place] | | | | | | [address] | | | | + + + + + + | % Basophils | 1.1Comment: Testing | % | EXTERNAL | | | | performed at [facility];[address] | | LAB | | | | [address];[place] | | | | | | [address] | | | | + + + + + + | Absolute | 2.2Comment: Testing | 1.9 - 7.4 K/uL | EXTERNAL | | | Segmented | performed at [facility];[address] | | LAB | | | Neutrophils | [address];[place] | | | | | | [address] | | | | + + + + + + | Absolute | 0.6 (L)Comment: Testing | 1.0 - 3.9 K/uL | EXTERNAL | | | Lymphocytes | performed at [facility];[address] | | LAB | | | | [address];[place] | | | | | | [address] | | | | + + + + + + | Absolute | 0.8Comment: Testing | 0 - 0.8 K/uL | EXTERNAL | | | Monocytes | performed at [facility];[address] | | LAB | | | | [address];[place] | | | | | | [address] | | | | + + + + + + | Absolute | 0.1Comment: Testing | 0 - 0.5 K/uL | EXTERNAL | | | Eosinophils | performed at [facility];[address] | | LAB | | | | [address];[place] | | | | | | [address] | | | | + + + + + + | Absolute | 0.0Comment: Testing | 0 - 0.1 K/uL | EXTERNAL | | | Basophils | performed at [facility];[address] | | LAB | | | | [address];[place], [place] | | | | | | [address] | | | | + + + + + + + + | Specimen | + + | | + + + +---------+ + + | Performing | Address | City/State/Zipcode | Phone Number | | Organization | | | | + +---------+ + + | EXTERNAL LAB | | | | + +---------+ + + TSH (02/07/2014 6:30 AM PDT) + + + + + + | Component | Value | Ref Range | Performed | Pathologist | | | | | At | Signature | + + + + + + | TSH | 3.20Comment: Testing | 0.45 - 5.10 | EXTERNAL | | | | performed at [facility];[address] | uIU/mL | LAB | | | | [address];[place], [place] | | | | | | [address] | | | | + + + + + + + + | Specimen | + + | Blood specimen | | (specimen) | + + + +---------+ + + | Performing | Address | City/State/Zipcode | Phone Number | | Organization | | | | + +---------+ + + | EXTERNAL LAB | | | | + +---------+ + + Phosphorus (02/07/2014 6:30 AM PDT) + + + + + + | Component | Value | Ref Range | Performed | Pathologist | | | | | At | Signature | + + + + + + | PHOSPHORUS | 2.1 (L)Comment: Testing | 2.3 - 4.8 mg/dL | EXTERNAL | | | | performed at [facility];[address] | | LAB | | | | [address];[place], [place] | | | | | | [address] | | | | + + + + + + + + | Specimen | + + | Blood specimen | | (specimen) | + + + +---------+ + + | Performing | Address | City/State/Zipcode | Phone Number | | Organization | | | | + +---------+ + + | EXTERNAL LAB | | | | + +---------+ + + Magnesium (02/07/2014 6:30 AM PDT) + + + + + + | Component | Value | Ref Range | Performed | Pathologist | | | | | At | Signature | + + + + + + | Magnesium | 1.4 (L)Comment: Testing | 1.7 - 2.4 mg/dL | EXTERNAL | | | | performed at [facility] [place] | | LAB | | | | [address] [facility];[place] | | | | | | [address] | | | | + + + + + + + + | Specimen | + + | Blood specimen | | (specimen) | + + + +---------+ + + | Performing | Address | City/State/Zipcode | Phone Number | | Organization | | | | + +---------+ + + | EXTERNAL LAB | | | | + +---------+ + + Lactate Dehydrogenase (02/07/2014 6:30 AM PDT) + + + + + + | Component | Value | Ref Range | Performed | Pathologist | | | | | At | Signature | + + + + + + | LDH TOTAL | 303 (H)Comment: SLT | 115 - 225 U/L | EXTERNAL | | | | HEMOLYSISTesting | | LAB | | | | performed at [facility] [place];[address] | [address];[place] | | | | | | [address] | | | | + + + + + + + + | Specimen | + + | | + + + +---------+ + + | Performing | Address | City/State/Zipcode | Phone Number | | Organization | | | | + +---------+ + + | EXTERNAL LAB | | | | + +---------+ + + Hemoglobin A1C (02/07/2014 6:30 AM PDT) + + + + + + | Component | Value | Ref Range | Performed | Pathologist | | | | | At | Signature | + + + + + + | Hemoglobin | 4.6Comment: The [place] | 4.0 - 6.0 % | EXTERNAL | | | A1c | Diabetes Association | | LAB | | | | considers a hemoglobin | | | | | | A1c result of <7.0% to | | | | | | be the goal of diabetic | | | | | | therapy. When results | | | | | | are consistently >8.0%, | | | | | | the ADA suggests | | | | | | reevaluation of the | | | | | | treatment regimen. The | | | | | | testing method used is | | | | | | certified traceable to | | | | | | the Diabetes Control and | | | | | | Complications Trial | | | | | | reference method.Testing | | | | | | performed at [facility], [address], | | | | | | [place] [address] | | | | + + + + + + | Glycohemogl | 85Comment: The ADA | mg/dL | EXTERNAL | | | obin | considers an eAG result | | LAB | | | (GHb),Total | of LT 154 mg/dL to be | | | | | | the goal of diabetic | | | | | | therapy. Estimated | | | | | | Average Glucose | | | | | | calculated from | | | | | | hemoglobin A1c by use of | | | | | | the ADA recommended | | | | | | formula.Testing | | | | | | performed at [facility], [address] | | | | | [facility], | | | | | | [place] [address] | | | | + + + + + + + + | Specimen | + + | Blood specimen | | (specimen) | + + + +---------+ + + | Performing | Address | City/State/Zipcode | Phone Number | | Organization | | | | + +---------+ + + | EXTERNAL LAB | | | | + +---------+ + + Bilirubin, Direct (02/07/2014 6:30 AM PDT) + + + + + + | Component | Value | Ref Range | Performed | Pathologist | | | | | At | Signature | + + + + + + | Bilirubin | 0.5 (H)Comment: Testing | 0.0 - 0.3 mg/dL | EXTERNAL | | | Direct | performed at [facility];[address] | | LAB | | | | [address];[place], [place] | | | | | | [address] | | | | + + + + + + + + | Specimen | + + | | + + + +---------+ + + | Performing | Address | City/State/Zipcode | Phone Number | | Organization | | | | + +---------+ + + | EXTERNAL LAB | | | | + +---------+ + + Comprehensive Metabolic Panel (02/07/2014 6:30 AM PDT) + + + + + + | Component | Value | Ref Range | Performed | Pathologist | | | | | At | Signature | + + + + + + | Na | 138Comment: Testing | 135 - 143 | EXTERNAL | | | | performed at [facility];[address] | mmol/L | LAB | | | | [address];[place] | | | | | | [address] | | | | + + + + + + | K | 3.2 (L)Comment: Testing | 3.5 - 4.9 | EXTERNAL | | | | performed at [facility];[address] | mmol/L | LAB | | | | [address];[place] | | | | | | [address] | | | | + + + + + + | Cl | 106Comment: Testing | 99 - 109 mmol/L | EXTERNAL | | | | performed at [facility];[address] | | LAB | | | | [address];[place] | | | | | | [address] | | | | + + + + + + | CO2 | 25Comment: Testing | 23 - 32 mmol/L | EXTERNAL | | | | performed at [facility];[address] | | LAB | | | | [address];[place] | | | | | | [address] | | | | + + + + + + | Anion Gap | 10Comment: Testing | 5 - 20 mmol/L | EXTERNAL | | | | performed at [facility];[address] | | LAB | | | | [address];[place] | | | | | | [address] | | | | + + + + + + | Glucose, | 77Comment: Testing | 65 - 99 mg/dL | EXTERNAL | | | Fasting | performed at [facility];[address] | | LAB | | | | [address];[place] | | | | | | [address] | | | | + + + + + + | BUN | 5 (L)Comment: Testing | 8 - 25 mg/dL | EXTERNAL | | | | performed at [facility];[address] | | LAB | | | | [address];[place] | | | | | | [address] | | | | + + + + + + | Creatinine | 0.60Comment: Testing | 0.50 - 1.00 | EXTERNAL | | | | performed at [facility];[address] | mg/dL | LAB | | | | [address];[place] | | | | | | [address] | | | | + + + + + + | BUN/Creatin | 8Comment: Testing | | EXTERNAL | | | ine Ratio | performed at [facility];[address] | | LAB | | | | [address];[place] | | | | | | [address] | | | | + + + + + + | Calcium | 7.2 (L)Comment: Testing | 8.5 - 10.2 | EXTERNAL | | | | performed at [facility];[address] | mg/dL | LAB | | | | [address];[place] | | | | | | [address] | | | | + + + + + + | Protein, | 5.9 (L)Comment: Testing | 6.3 - 8.2 g/dL | EXTERNAL | | | Total | performed at [facility];[address] | | LAB | | | | [address];[place] | | | | | | [address] | | | | + + + + + + | Albumin | 1.8 (L)Comment: Testing | 3.6 - 5.0 g/dL | EXTERNAL | | | | performed at [facility];[address] | | LAB | | | | [address];[place] | | | | | | [address] | | | | + + + + + + | Globulin | 4.1Comment: Testing | 1.3 - 4.9 g/dL | EXTERNAL | | | | performed at [facility];[address] | | LAB | | | | [address];[place] | | | | | | [address] | | | | + + + + + + | A/G Ratio | 0.5 (L)Comment: Testing | 1.0 - 2.4 | EXTERNAL | | | | performed at [facility];[address] | | LAB | | | | [address];[place] | | | | | | [address] | | | | + + + + + + | Bilirubin | 1.2Comment: Testing | 0.1 - 1.5 mg/dL | EXTERNAL | | | Total | performed at [facility];[address] | | LAB | | | | [address];[place] | | | | | | [address] | | | | + + + + + + | ALP, | 135 (H)Comment: Testing | 35 - 115 U/L | EXTERNAL | | | External | performed at [facility];[address] | | LAB | | | | [address];[place] | | | | | | [address] | | | | + + + + + + | AST | 84 (H)Comment: Testing | 10 - 45 U/L | EXTERNAL | | | | performed at [facility];[address] | | LAB | | | | [address];[place] | | | | | | [address] | | | | + + + + + + | ALT | 21Comment: Testing | 10 - 65 U/L | EXTERNAL | | | | performed at [facility];[address] | | LAB | | | | [address];[place] | | | | | | [address] | | | | + + + + + + | Estimated | >60Comment: GFR <60: | mL/min/1.73m2 | EXTERNAL | | | GFR | CHRONIC KIDNEY DISEASE, | | LAB | | | | IF FOUND OVER A 3 MONTH | | | | | | PERIOD.GFR <15: KIDNEY | | | | | | FAILURE.FOR | | | | | | AMERICANS, MULTIPLY THE | | | | | | CALCULATED GFR BY | | | | | | 1.210.Testing performed | | | | | | at [facility];[address] [place] [address] | | | | | | [facility];[place] [address] | | | | + + + + + + + + | Specimen | + + | Blood specimen | | (specimen) | + + + +---------+ + + | Performing | Address | City/State/Zipcode | Phone Number | | Organization | | | | + +---------+ + + | EXTERNAL LAB | | | | + +---------+ + + CT Head wo Contrast (02/07/2014 2:51 AM PDT) + + | Specimen | + + | | + + + + + | Impressions | Performed At | + + + | No acute intracranial process. [facility] Electronically | | | signed by Rosalinda Comer MD on Feb 07 2014 3:55AM Referring | | | Provider Line: [phone] ID: [id number] | | + + + + + + | Narrative | Performed At | + + + | EXAM: CT HEAD EXAM DATE: 02/07/2014 02:52 AM. CLINICAL | | | HISTORY: Headache. COMPARISON: Noncontrast brain CT from March | | | 2012. TECHNIQUE: Multiaxial CT images were obtained from the | | | foramen magnum to the vertex. IV contrast: None. Reformats: None. | | | FINDINGS: Parenchyma: No intracranial hemorrhage. No evidence of | | | mass, midline shift or CT findings of infarction. Philippe-white | | | differentiation is distinct. Extraaxial Spaces: No acute subdural | | | or epidural collections identified. Ventricles: There is mild | | | prominence of the cerebral sulci slightly greater than expected for | | | the patient's age but unchanged on the prior brain CT. Sinuses: | | | Imaged paranasal sinuses, orbits, and mastoids show no significant | | | abnormality. Bones: No evidence of fracture or calvarial defect. | | | Other: Embolization coils are again noted in the bilateral | | | rehabilitation worker spaces. | | + + + + + | Procedure Note | + + | Jermaine, Rad Conversion - 11/22/2018 10:10 AM PDT EXAM:CT HEAD EXAM DATE: 02/07/2014 02:52 | | AM. CLINICAL HISTORY: Headache. COMPARISON: Noncontrast brain CT from March 26 | | 2012. TECHNIQUE: Multiaxial CT images were obtained from the foramen magnum to the | | vertex. IV contrast: None. Reformats: None. FINDINGS:Parenchyma: No intracranial | | hemorrhage. No evidence of mass, midline shift or CT findings of infarction. Philippe-white | | differentiation is distinct. Extraaxial Spaces: No acute subdural or epidural | | collections identified. Ventricles: There is mild prominence of the cerebral sulci | | slightly greater than expected for the patient's age but unchanged on the prior brain | | CT. Sinuses: Imaged paranasal sinuses, orbits, and mastoids show no significant | | abnormality. Bones: No evidence of fracture or calvarial defect. Other: Embolization | | coils are again noted in the bilateral rehabilitation worker spaces. IMPRESSION: No acute | | intracranial process. [facility] Electronically signed by Rosalinda Comer MD on Feb 07 | | 2013 3:55AM Referring Provider Line: [phone] ID: [id number] | | | |Extraaxial Spaces: No acute subdural or epidural collections identified. | | | |Ventricles: There is mild prominence of the cerebral sulci slightly greater than expected f or the patient's age but unchanged on the prior brain CT. | | | |Sinuses: Imaged paranasal sinuses, orbits, and mastoids show no significant abnormality. | | | |Bones: No evidence of fracture or calvarial defect. | | | |Other: Embolization coils are again noted in the bilateral rehabilitation worker spaces. | | | |IMPRESSION: | | | | | |No acute intracranial process. | | | |[facility] | | | | Electronically signed by Rosalinda Comer MD on Feb 07 2014 3:55AM Referring Provider Line: [phone] ID: [id number] | + + Urinalysis, Microscopic Only (02/06/2014 11:36 PM PDT) + + + + + + | Component | Value | Ref Range | Performed | Pathologist | | | | | At | Signature | + + + + + + | WBC, UA | 11-15Comment: Testing | 0 - 5 /hpf | EXTERNAL | | | | performed at [facility];[address] | | LAB | | | | [address];[place] | | | | | | [address] | | | | + + + + + + | RBC, UA | 16-25Comment: Testing | 0 - 5 /hpf | EXTERNAL | | | | performed at [facility];[address] | | LAB | | | | [address];[place] | | | | | | [address] | | | | + + + + + + | Epithelial | 26-50Comment: Testing | /lpf | EXTERNAL | | | Cells | performed at [facility];[address] | | LAB | | | | [address];[place] | | | | | | [address] | | | | + + + + + + | Bacteria, | 4+ (A)Comment: Testing | | EXTERNAL | | | UA | performed at [facility];[address] | | LAB | | | | [address];[place] | | | | | | [address] | | | | + + + + + + | Mucus, | 2+Comment: Testing | | EXTERNAL | | | Urine | performed at [facility];[address] | | LAB | | | | [address];[place], [place] | | | | | | [address] | | | | + + + + + + + + | Specimen | + + | | + + + +---------+ + + | Performing | Address | City/State/Zipcode | Phone Number | | Organization | | | | + +---------+ + + | EXTERNAL LAB | | | | + +---------+ + + Urinalysis with Microscopic if Indicated (02/06/2014 11:36 PM PDT) + + + + + + | Component | Value | Ref Range | Performed | Pathologist | | | | | At | Signature | + + + + + + | Color | YELLOWComment: Testing | | EXTERNAL | | | | performed at [facility];[address] | | LAB | | | | [address];[place] | | | | | | [address] | | | | + + + + + + | Clarity, | CLOUDYComment: Testing | | EXTERNAL | | | Urine | performed at [facility];[address] | | LAB | | | | [address];[place] | | | | | | [address] | | | | + + + + + + | Specific | 1.025Comment: Testing | 1.001 - 1.035 | EXTERNAL | | | [place], | performed at [facility];[address] | | LAB | | | Urine | [address];[place] | | | | | | [address] | | | | + + + + + + | Leukocyte | NEGATIVEComment: Testing | | EXTERNAL | | | Esterase, | performed at [facility];[address] | | LAB | | | Urine | [address];[place] | | | | | | [address] | | | | + + + + + + | Nitrite, | NEGATIVEComment: Testing | | EXTERNAL | | | Urine | performed at [facility];[address] | | LAB | | | | [address];[place] | | | | | | [address] | | | | + + + + + + | Urobilinoge | 0.2Comment: Testing | mg/dL | EXTERNAL | | | n, Urine | performed at [facility];[address] | | LAB | | | | [address];[place] | | | | | | [address] | | | | + + + + + + | Protein, | 100 (A)Comment: Testing | mg/dL | EXTERNAL | | | Urine | performed at [facility];[address] | | LAB | | | | [address];[place] | | | | | | [address] | | | | + + + + + + | pH, Urine | 7.0Comment: Testing | 4.6 - 8.0 | EXTERNAL | | | | performed at [facility];[address] | | LAB | | | | [address];[place] | | | | | | [address] | | | | + + + + + + | Blood, | LARGE (A)Comment: | | EXTERNAL | | | Urine | Testing performed at | | LAB | | | | [facility];[address];[place] [address] | | | | + + + + + + | Ketones | TRACE (A)Comment: | mg/dL | EXTERNAL | | | | Testing performed at | | LAB | | | | [facility];[address];[place] [address] | | | | + + + + + + | Bilirubin, | SMALL (A)Comment: | | EXTERNAL | | | Urine | Testing performed at | | LAB | | | | [facility];[address];[place] [address] | | | | + + + + + + | Glucose, | NEGATIVEComment: Testing | mg/dL | EXTERNAL | | | Urine | performed at [facility];[address] | | LAB | | | | [address];[place] | | | | | | [address] | | | | + + + + + + + + | Specimen | + + | Urine specimen | | (specimen) | + + + +---------+ + + | Performing | Address | City/State/Zipcode | Phone Number | | Organization | | | | + +---------+ + + | EXTERNAL LAB | | | | + +---------+ + + Culture, Urine (02/06/2014 11:36 PM PDT) + + | Specimen | + + | Urine specimen | | (specimen) | + + + + + | Narrative | Performed At | + + + | Specimen Description CLEAN CATCH URINE CULTURE | EXTERNAL LAB | | >100,000 CFU/ML | | | ESCHERICHIA COLIAbnormal | | | Testing performed | | | at [facility], [address] [place] [address] | | | Suscepibility for - ESCHERICHIA COLI Ampicillin | | | SUSCEPTIBLESensitive Ampicillin + Sulbactam | | | SUSCEPTIBLESensitive Cefepime | | | SUSCEPTIBLESensitive Cefoxitin | | | SUSCEPTIBLESensitive Ceftazidime | | | SUSCEPTIBLESensitive Ceftriaxone | | | SUSCEPTIBLESensitive Ciprofloxacin | | | SUSCEPTIBLESensitive Gentamicin | | | SUSCEPTIBLESensitive Levofloxacin | | | SUSCEPTIBLESensitive Nitrofurantoin | | | SUSCEPTIBLESensitive Piperacillin + Tazobactam | | | SUSCEPTIBLESensitive Tobramycin | | | SUSCEPTIBLESensitive Trimethoprim + | | | SulfamethoxazoleSUSCEPTIBLESensitive | | + + + + +---------+ + + | Performing | Address | City/State/Zipcode | Phone Number | | Organization | | | | + +---------+ + + | EXTERNAL LAB | | | | + +---------+ + + Ammonia (02/06/2014 10:53 PM PDT) + + + + + + | Component | Value | Ref Range | Performed | Pathologist | | | | | At | Signature | + + + + + + | Ammonia | 53 (H)Comment: Testing | umol/L | EXTERNAL | | | | performed at [facility];[address] | | LAB | | | | [address];[place], [place] | | | | | | [address] | | | | + + + + + + + + | Specimen | + + | Blood specimen | | (specimen) | + + + +---------+ + + | Performing | Address | City/State/Zipcode | Phone Number | | Organization | | | | + +---------+ + + | EXTERNAL LAB | | | | + +---------+ + + Culture, Blood, 2nd Specimen (02/06/2014 10:53 PM PDT) + + | Specimen | + + | Blood specimen | | (specimen) | + + + + + | Narrative | Performed At | + + + | Specimen Description BLOOD SPECIAL | EXTERNAL LAB | | REQUESTS RAC | | | Testing performed at [facility];[address] | | [address];[place] [address] CULTURE | | | NO GROWTH | | | Testing performed at [facility], [address], [place], [place] | | | [address] | | + + + + +---------+ + + | Performing | Address | City/State/Zipcode | Phone Number | | Organization | | | | + +---------+ + + | EXTERNAL LAB | | | | + +---------+ + + Culture, Blood (02/06/2014 10:50 PM PDT) + + | Specimen | + + | Blood specimen | | (specimen) | + + + + + | Narrative | Performed At | + + + | Specimen Description BLOOD SPECIAL | EXTERNAL LAB | | REQUESTS LAC | | | Testing performed at [facility];[address] | | [facility];[place] [address] CULTURE | | | NO GROWTH | | | Testing performed at [facility], [address], [place], [place] | | | [address] | | + + + + +---------+ + + | Performing | Address | City/State/Zipcode | Phone Number | | Organization | | | | + +---------+ + + | EXTERNAL LAB | | | | + +---------+ + + documented in this encounter Visit Diagnoses + + | Diagnosis | + + | Fever Fever, unspecified | + + | Seizure (HCC) Other convulsions | + + | Alcohol abuse Alcohol abuse, unspecified | + + | UTI (lower urinary tract infection) Urinary tract infection, site not specified | + + | Hepatic encephalopathy (HCC) Hepatic encephalopathy | + + | Post-ictal state (HCC) | + + documented in this encounter
--- OUTSIDE RECORDS SUMMARY | ~2020-01-12 | XMS | Encounter Summary ---
Demographics + + + | Address | [address] | | | [place] [address] | + + + | Home Phone | | + + + | Preferred Language | Unknown | + + + | Marital Status | Single | + + + | Anabaptist Affiliation | [id number] | + + + | Race | or | + + + | Ethnic Group | Not or | + + + Author + + + | Author | [facility] | | | and [place] | + + + | Organization | [facility] | | | and [place] | + + + | Address | Unknown | + + + | Phone | Unavailable | + + + Support + + + + + | Name | Relationship | Address | Phone | + + + + + | Joanne Pham | ECON | [address] | | | | | [place] | | | | | [id number] | | + + + + + | Viktor Son | EDDIE | Unknown | | + + + + + | Edd Gill | ECON | Unknown | | + + + + + | Conner Barber | ECON | Unknown | | + + + + + Care Team Providers + +------+ + | Care Adzing And Boring Machine Feeder Name | Role | Phone | + +------+ + PCP | Unavailable | + +------+ + Reason for Visit + + + | Reason | Comments | + + + | Abdominal Pain | | + + + | Knee Pain | R | + + + Encounter Details +--------+ + + + + | Date | Type | Department | Care Team | Description | +--------+ + + + + | 03/17/ | Emergency | [facility] | [place], | Urinary tract | | 2015 | | [facility] | Wang Orourke MD [address] | infection without | | | | CENTER [address] | [address] [place] | hematuria, site | | | | [place], [place] | [place] [address] | unspecified (Primary | | | | [address] | [phone] | Dx); Anemia, | | | | [phone] | | unspecified anemia | | | | | | type; Contusion of | | | | | | right knee, initial | | | | | | encounter; Hepatic | | | | | | encephalopathy (HCC) | +--------+ + + + + Social History + +-------+ +--------+------+ | Tobacco Use | Types | Packs/Day | Years | Date | | | | | Used | | + +-------+ +--------+------+ | Former Smoker | | | | | + +-------+ +--------+------+ + + +---------+ + | Alcohol Use | Drinks/Week | oz/Week | Comments | + + +---------+ + | Yes | | | alcoholism, | | | | | [...] + + + | Blood Pressure | 131/83 | 03/17/2015 11:41 AM | | | | | PST | | + + + + + | Pulse | 110 | 03/17/2015 11:41 AM | | | | | PST | | + + + + + | Temperature | 36.9 C (98.4 F) | 03/17/2015 7:15 AM | | | | | PST | | + + + + + | Respiratory Rate | 24 | 03/17/2015 7:15 AM | | | | | PST | | + + + + + | Oxygen Saturation | 98% | 03/17/2015 11:41 AM | | | | | PST | | + + + + + | Inhaled Oxygen | - | - | | | Concentration | | | | + + + + + | Weight | 63.5 kg (140 lb) | 03/17/2015 7:15 AM | | | | | PST | | + + + + + | Height | 170.2 cm (5' 7") | 03/17/2015 7:15 AM | | | | | PST | | + + + + + | Body Mass Index | 21.93 | 03/17/2015 7:15 AM | | | | | PST | | + + + + + documented in this encounter Discharge Instructions Instructions Wang Andersen MD - 03/17/2015Use tramadol to help with pain control. Call your clinic today to arrange a follow-up visit within the next week Elevate your legs as much as possible to help with pain and swelling. documented in this encounter Medications at Time of Discharge + + + +---------+ + + | Medication | Sig | Dispensed | Refills | Start | End Date | | | | | | Date | | + + + +---------+ + + | cephalexin | Take 1 capsule by | 40 | 0 | 03/17/20 | | | (KEFLEX) 500 mg | mouth 4 times daily | capsule | | 15 | 5 | | capsule | for 10 days. | | | | | + + + +---------+ + + | traMADol (ULTRAM) | Take 1 tablet by | 30 | 0 | 03/17/20 | | | 50 mg tablet | mouth every 8 hours | tablet | | 15 | 6 | | | as needed for Pain. | | | | | + + + +---------+ + + documented as of this encounter ED Vandana Ring RN - 03/17/2015 1:38 PM PSTPt home stable condition, written and verba l inst given. Home with written AVS and script X2. Wang Brown MD - 03/17/2015 7:06 AM PSTFormatt ing of this note might be different from the original. [facility] Shaila Son Emergency Department Encounter Note [address] [place] [address] PCP:Doctor Unknown [phone] CHIEF COMPLAINT: Chief Complaint Patient presents with Abdominal Pain Knee Pain R ED Room: ED12/ED12 HPI Shaila Son is a 44 y.o. female who presents to the Emergency Department by ambulance for evaluation. This patient fell one week ago and hit her right knee. She was seen at [facility] and had an evaluation but they report no injuries were found. In the subsequ ent week she has had increasing abdominal distention, shortness of breath, and pain in the r ight leg and knee. She states that she has had paracentesis in the past for her liver failu re but not for a long time. This amount of distention is atypical for her. She denies feve rs or chills. She denies flank pain. PAST MEDICAL & SURGICAL HISTORY Past Medical History Diagnosis Date Cirrhosis, alcoholic (HCC) Hypertension History reviewed. No pertinent past surgical history. CURRENT MEDICATIONS Previous Medications No medications on file ALLERGIES Allergies Allergen Reactions Ciprofloxacin Anaphylaxis Sulfamethoxazole-Trimethoprim Anaphylaxis Ibuprofen Hives Pt also has liver failure FAMILY AND SOCIAL HISTORY No family history on file. History Social History Marital Status: Single Spouse Name: N/A Number of Children: N/A Years of Education: N/A Social History Main Topics Smoking status: Former Smoker Smokeless tobacco: None Alcohol Use: Yes Comment: alcoholism, currently drinks 6 cans of beer daily Drug Use: No Sexual Activity: None Other Topics Concern None Social History Narrative None REVIEW OF SYSTEMS As in history of present illness. A 10 system review was otherwise negative. PHYSICAL EXAM VITAL SIGNS: (first vital signs):Temp: 36.9 C (98.4 F) Pulse: 107 Resp: 24 SpO2: 95 % B P: (!) 128/110 mmHg Constitutional: female patient, Moderate distress HEENT: Atraumatic, PERRL, Oropharynx benign. Neck: Supple with full range of motion. No JVD, no lymphadenopathy and No Cervical Spine T enderness to palpation or step-off noted.. Respiratory: Good air movement bilaterally. End-expiratory wheezes, Bibasilar, rales. Cardiovascular: Normal S1 S2 Abdomen: Soft, nontender. No rebound, guarding, or masses. Bowel tones normal. No pulsa tile masses Back: No CVA tenderness and No midline thoracic or lumbar spinal tenderness Extremities: Nontender. Pitting lower extremity edema, much worse on the right. Right kne e is tender, swollen, and ecchymotic. Present distal pulses. Skin: Warm, Dry, No rashes Neurologic: Alert & oriented. No focal deficits., Speech normal, gait not tested Psychiatric: Normal mood, affect and judgement. EKG 12-lead EKG shows sinus rhythm with a rate of 91 with slightly prolonged QT. No ST elev ations, depressions, or evidence of acute ischemic change LABS Results for orders placed or performed during the hospital encounter of 03/17/15 CBC with Differential Result Value Ref Range WBC 3.7 (L) 4.0-11.0 K/uL RBC 2.59 (L) 3.70-5.20 M/uL Hgb 8.5 (L) 11.5-16.0 g/dL Hct 25.5 (L) 34.0-47.0 % MCV 98.2 83.0-101.0 fL MCH 32.6 28.0-35.0 pg MCHC 33.2 32.0-36.0 g/dL RDW-CV 14.5 <15.0 % Platelet Count 115 (L) 140-440 K/uL MPV 8.3 fL % Neutrophils 62.6 45.0-82.0 % % Lymphocytes 15.0 (L) 20.0-45.0 % % Monocytes 16.9 (H) 4.0-12.0 % % Eosinophils 5.0 0.0-5.0 % % Basophils 0.5 0.0-1.0 % Absolute Neutrophils 2.30 1.80-8.50 K/uL Absolute Lymphocytes 0.60 0.60-3.20 K/uL Absolute Monocytes 0.60 0.00-1.00 K/uL Absolute Eosinophils 0.20 0.00-0.40 K/uL Absolute Basophils 0.00 0.00-0.10 K/uL Comprehensive Metabolic Panel Result Value Ref Range NA 132 (L) 136-149 mmol/L K 3.8 3.5-5.1 mmol/L CL 102 98-109 mmol/L CO2 25 24-31 mmol/L ANION GAP 5 3-16 mmol/L GLUCOSE 94 70-109 mg/dL BUN 4 (L) 7-18 mg/dL Creatinine, Serum/Plasma 0.43 (L) 0.60-1.30 mg/dL eGFR if not >60 >=60 mL/min/1.73m2 CALCIUM 7.2 (L) 8.3-10.5 mg/dL ALBUMIN 1.3 (L) 3.2-5.0 g/dL BILIRUBIN TOTAL 0.9 0.1-1.5 mg/dL Total protein 5.8 (L) 6.0-7.8 g/dL AST 69 (H) 10-42 U/L ALT 12 6-45 U/L ALK PHOS 158 (H) 40-110 U/L GLOBULIN 4.5 g/dL Albumin/Globulin ratio 0.3 BUN/CREA 9.3 Lipase Result Value Ref Range LIPASE 27 0-60 U/L Protime INR Result Value Ref Range PROTIME 16.5 (H) 11.3-13.9 seconds INR 1.27 (H) 0.90-1.10 Urinalysis with Microscopic with Culture if Indicated Result Value Ref Range COLOR Yellow Light Yellow, Yellow CLARITY Hazy (A) Clear PH UA 5.5 5.0-8.0 Specific [place] <=1.005 1.001-1.030 PROTEIN UA Negative Negative BLOOD UA Large (A) Negative GLUCOSE UA Negative Negative KETONES UA Negative Negative BILIRUBIN UA Negative Negative NITRITE UA Negative Negative LEUKOCYTES ESTERASE UA Small (A) Negative UROBILINOGEN UA 2.0 E.U./dL (A) 0.2 E.U./dL, 1.0 E.U./dL WBC UA 5-10 (A) 0-2 /HPF RBC UA 0-2 0-2 /HPF SQUAMOUS EPITHELIAL UA 5-10 (A) 0-2 /LPF BACTERIA UA 2+ (A) Negative /HPF URINE COMMENT Urine Culture Set Up B Type Natriuretic Peptide Result Value Ref Range BNP 54 <100 pg/mL Ammonia Result Value Ref Range AMMONIA 40 (H) 11-35 umol/L Extra Gold Top Tube Result Value Ref Range EGDT Done Extra Green Top Tube Result Value Ref Range Extra Green Top Tube Done IMAGING STUIDES (X-Rays interpreted by ED Physician) pCXR showed no focal infiltrate or other acute findings. Right knee XR showed no fracture Duplex u/s right leg showed no evidence of DVT Radiology Interpretations: Xr Knee Right 1 - 2 Vw 03/17/2015 EXAM: XR KNEE RIGHT 1 - 2 VW dated 03/17/2015 12:00 AM HISTORY:fall x 1 wk COM PARISON: None. FINDINGS:Frontal and lateral views of the right knee. There is normal mineral resources inspector alization. No visible fracture or dislocation. There is a very prominent amount of soft ti ssue anterior to the inferior one half of the patella and along the course of the patellar t endon. No patellar. No radiopaque foreign bodies. Diffuse subcutaneous edema. IMPRESSION - No acute osseous abnormality. Significant prepatellar soft tissue thickening. Dictated and Signed by: Hakeem Barroso MD Electronically signed: 03/17/2015 9:[address] Abdomen Pelvis W Contrast 03/17/2015 CT ABDOMEN PELVIS W CONTRAST 03/17/2015 9:57 AM HISTORY: History of ascites, fa ll one week ago with increased pain and distention. COMPARISON: None. PROTOCOL: Axial imag es of the abdomen and pelvis were obtained after administration of 95 mL Omnipaque 350. Kev nal and sagittal reformations were acquired. FINDINGS: The liver demonstrates a lobular con tour that suggests cirrhosis. Multiple small gallstones are visualized within the gallbladde r lumen particularly at the neck with no evidence for cholecystitis. Biliary ducts are unrem arkable. The spleen is unremarkable. The pancreas demonstrates normal parenchyma and a norm al pancreatic duct. Adrenal glands are normal. The right kidney and visualized ureter are n ormal. The left kidney and visualized ureter are normal. Stomach, small bowel, and termina l ileum are normal. The appendix has a normal appearance. Colon is unremarkable. Aorta is n onaneurysmal. The iliac arteries are normal. The main portal vein and the hepatic veins are hypoplastic. Numerous collateral vessels are visualized in the region of the spleen and surr ounding the distal esophagus. No enlarged lymph nodes are visualized within the omentum or retroperitoneum. A large amount of ascites is observed throughout the abdomen and pelvis wi th simple composition. Bladder is normal. Uterus and adnexa are normal. There is moderate , diffuse subcutaneous fluid that is consistent with anasarca. There are no acute osseous ab normalities. IMPRESSION - Large amount of ascites throughout the abdomen and pelvis. Cirrh otic appearing liver with numerous collateral vessels that suggest portal venous hypertensio n. Moderate, diffuse anasarca. Gallstones with no evidence for cholecystitis. This report was sent to the ER. Dictated and Signed by: Austin Crane MD Electronically signed: 2014 11:22 AM Xr Chest Ap Portable 03/17/2015 EXAM: XR CHEST AP PORTABLE dated 03/17/2015 9:10 AM HISTORY: Dyspnea Compariso n: None. TECHNIQUE: A single portable view of the chest. FINDINGS: Elevated right hemidiap hragm. Basilar atelectasis. Questionable blunting of the right prosthetic angle. Hazy den sity in the right midlung. Mild prominence of the cardiac silhouette. This is in part poss ibly technique related. No visible acute osseous abnormality. IMPRESSION - Blunting of t he right costophrenic angle, right lung atelectasis and possible right midlung infiltrate. T he findings are nonspecific. Correlate for signs and symptoms of infection. Mild cardiomeg cyndi. The patient is scheduled for a CT pulmonary angiogram today. Dictated and Signed by: Hakeem Barroso MD Electronically signed: 03/17/2015 10:31 AM Vas Lower Extremity Venous Right 03/17/2015 EXAM: VAS LOWER EXTREMITY VENOUS RIGHT dated 03/17/2015 8:07 AM. HISTORY: fall 1 wk ago, now with lower leg swelling. COMPARISON: None. TECHNIQUE: Compression sonography was performed from the groin through the popliteal fossa in the Right lower extremity. Gra yscale and spectral Doppler analysis is performed. FINDINGS: There is phasic respiratory fl ow in all areas sampled. There is response to Valsalva in the common femoral vein. There i s response to calf augmentation in all areas sampled. There is normal and complete compress ibility in all areas sampled. There are no visible thrombi. There is respiratory phasic fl ow in the sampled portion of the Left common femoral vein. Diffuse subcutaneous edema. IMP RESSION - No evidence for right lower extremity deep venous thrombosis. The preliminary fi ndings were conveyed to the ordering provider, by the abrasive worker, immediately following the exam. Dictated and Signed by: Hakeem Barroso MD Electronically signed: 03/17/2015 8:[address] Angiogram Pulmonary 03/17/2015 CT ANGIOGRAM PULMONARY 03/17/2015 9:57 AM HISTORY: Chest pain, rule out pulmona ry embolism. COMPARISON: None. PROTOCOL: Thin section axial images of the chest were obtai sariah after uneventful administration of 95 mL Omnipaque 350. Coronal and sagittal reformation s were acquired. FINDINGS: Neck base is normal. The heart is enlarged. Aorta is normal. Th e pulmonary arteries are not optimally opacified. There is no definite evidence for pulmonar y embolism. SVC is normal. No enlarged lymph nodes are seen in the mediastinum, alfa, or ax illa. Trachea and esophagus demonstrate no acute findings. There is mild atelectasis in the inferior aspect of the right upper lobe and in the left lingula. No pleural effusion or pne umothorax is seen. The upper abdomen demonstrates no acute findings. Chest wall structures are normal. There are no acute osseous abnormalities. IMPRESSION - Pulmonary arteries not optimally opacified, no definite evidence for pulmonary embolism. Cardiomegaly. This repor t was sent to the ER. Dictated and Signed by: Austin Crane MD Electronically signed: 03/17 11:12 AM ED COURSE & MEDICAL DECISION MAKING Pertinent Labs & Imaging studies were reviewed along with EMS notes and long term record s if applicable. (See chart for details) Medications and Allergy list reviewed. Nurses note and old records were reviewed The patient was seen and examined, IV was started, labs were sent, and imaging studies were obtained. The patient does have a history of cirrhosis and liver failure, but it is concer hang that she has increasing distention after a traumatic injury with worsening pain. There fore CT scan of the abdomen and pelvis was ordered to evaluate for internal injury. Because of her right leg swelling and calf asymmetry associated with shortness of breath I was conc erned about DVT/PE and so ultrasound of the leg and CT scan of the chest were ordered. The patient had an unfortunate series of events with infiltrating IVs. I personally starte d 2 peripheral IVs using ultrasound which millicent and flushed wonderfully but then became probl ematic in the CT scanner. Because of this, the CT scan of her chest did not show complete o pacification with contrast to the pulmonary arteries but there were no obvious abnormalities noted. CT of the abdomen and pelvis showed ascites and associated changes consistent with her liver failure but no acute findings otherwise. Her other imaging studies were unremarka ble. At this point, I suspect the patient has multifactorial causes of her pain. Her knee is certainly bruised from the fall and I think the lower leg swelling is making the pain moe n worse. I advised her to ice and elevate the knee as much as possible to help with that. She does have abdominal pain from her ascites, but her abdomen is still soft and I do not be lieve that she needs paracentesis at this time. I do not think the patient has spontaneous bacterial peritonitis or other intra-abdominal infectious process that would indicate a need for paracentesis and fluid testing. She has a slightly elevated ammonia of 40 and so was g iven an extra dose of lactulose here, but looking through labs from other facilities she has often times had baseline ammonia levels in the 30s. I will start her on tramadol for pain control as she really does not take anything other than [id number] medications at this time. I advised her to contact her clinic today to arrange follow-up within the next week. She was prescribed keflex for her UTI Last Set of Vital Signs: Temp: 36.9 C (98.4 F) Pulse: 110 Resp: 24 SpO2: 98 % BP: 131/8 3 mmHg FINAL IMPRESSION ICD-10-CM ICD-9-CM 1. Urinary tract infection without hematuria, site unspecified N39.0 599.0 2. Anemia, unspecified anemia type D64.9 285.9 3. Contusion of right knee, initial encounter S80.01XA 924.11 4. Hepatic encephalopathy (HCC) K72.90 572.2 Follow-up Information Follow up with [facility] In 1 week. New Prescriptions TRAMADOL (ULTRAM) 50 MG TABLET Take 1 tablet by mouth every 8 hours as needed for Pain. Wang Andersen MD 03/17/15 1150 Wang Andersen MD 03/17/15 1231 do cumented in this encounter Miscellaneous Notes ED Triage Notes - Kelly Chong RN - 03/17/2015 7:14 AM PSTPt has a history of ascites , currently has abdominal pain, and complaints of R knee pain after a fallElectronically sig sariah by Kelly Chong RN at 03/17/2015 7:15 AM PSTdocumented in this encounter Plan of Treatment Not on filedocumented as of this encounter Procedures + +--------+ + + + | Procedure Name | Priori | Date/Time | Associated Diagnosis | Comments | | | ty | | | | + +--------+ + + + | CT ANGIOGRAM | STAT | 03/17/2015 | | Results for this | | PULMONARY | | 10:21 AM | | procedure are in the | | | | PST | | results section. | + +--------+ + + + | CT ABDOMEN PELVIS W | STAT | 03/17/2015 | | Results for this | | CONTRAST | | 10:21 AM | | procedure are in the | | | | PST | | results section. | + +--------+ + + + | XR CHEST AP PORTABLE | STAT | 03/17/2015 | | Results for this | | | | 9:10 AM | | procedure are in the | | | | PST | | results section. | + +--------+ + + + | XR KNEE RIGHT 1 - 2 | STAT | 03/17/2015 | | Results for this | | VW | | 9:09 AM | | procedure are in the | | | | PST | | results section. | + +--------+ + + + | EXTRA GREEN TOP TUBE | Routin | 03/17/2015 | | Results for this | | | e | 8:20 AM | | procedure are in the | | | | PST | | results section. | + +--------+ + + + | EXTRA GOLD TOP TUBE | Routin | 03/17/2015 | | Results for this | | | e | 8:20 AM | | procedure are in the | | | | PST | | results section. | + +--------+ + + + | PROTIME INR | STAT | 03/17/2015 | | Results for this | | | | 8:20 AM | | procedure are in the | | | | PST | | results section. | + +--------+ + + + | CBC WITH | STAT | 03/17/2015 | | Results for this | | DIFFERENTIAL | | 8:20 AM | | procedure are in the | | | | PST | | results section. | + +--------+ + + + | B TYPE NATRIURETIC | STAT | 03/17/2015 | | Results for this | | PEPTIDE | | 8:20 AM | | procedure are in the | | | | PST | | results section. | + +--------+ + + + | LIPASE | STAT | 03/17/2015 | | Results for this | | | | 8:20 AM | | procedure are in the | | | | PST | | results section. | + +--------+ + + + | AMMONIA | STAT | 03/17/2015 | | Results for this | | | | 8:20 AM | | procedure are in the | | | | PST | | results section. | + +--------+ + + + | COMPREHENSIVE | STAT | 03/17/2015 | | Results for this | | METABOLIC PANEL | | 8:20 AM | | procedure are in the | | | | PST | | results section. | + +--------+ + + + | VAS LOWER EXTREMITY | STAT | 03/17/2015 | | Results for this | | VENOUS RIGHT | | 8:07 AM | | procedure are in the | | | | PST | | results section. | + +--------+ + + + | URINALYSIS WITH | STAT | 03/17/2015 | | Results for this | | MICROSCOPIC WITH | | 7:11 AM | | procedure are in the | | CULTURE IF INDICATED | | PST | | results section. | + +--------+ + + + | CULTURE, URINE | Routin | 03/17/2015 | | Results for this | | | e | 7:11 AM | | procedure are in the | | | | PST | | results section. | + +--------+ + + + documented in this encounter Results CT Angiogram Pulmonary (03/17/2015 10:21 AM PST) + + | Specimen | + + | | + + + + + | Narrative | Performed At | + + + | CT ANGIOGRAM PULMONARY 03/17/2015 9:57 AM HISTORY: Chest pain, | [facility] | | rule out pulmonary embolism. COMPARISON: None. PROTOCOL: Thin | | | section axial images of the chest were obtained after uneventful | | | administration of 95 mL Omnipaque 350. Coronal and sagittal | | | reformations were acquired. FINDINGS: Neck base is normal. | | | The heart is enlarged. Aorta is normal. The pulmonary arteries are not | | | optimally opacified. There is no definite evidence for pulmonary | | | embolism. SVC is normal. No enlarged lymph nodes are seen in the | | | mediastinum, alfa, or axilla. Trachea and esophagus demonstrate no | | | acute findings. There is mild atelectasis in the inferior aspect | | | of the right upper lobe and in the left lingula. No pleural effusion | | | or pneumothorax is seen. The upper abdomen demonstrates no acute | | | findings. Chest wall structures are normal. There are no acute | | | osseous abnormalities. IMPRESSION - Pulmonary arteries not | | | optimally opacified, no definite evidence for pulmonary embolism. | | | Cardiomegaly. This report was sent to the ER. Dictated and | | | Signed by: Austin Crane MD Electronically signed: 03/17/2015 11:12 | | | AM | | + + + + + | Procedure Note | + + | Jermaine, Rad Results In - 03/17/2015 11:[address] ANGIOGRAM PULMONARY 03/17/2015 9:57 | | AMHISTORY: Chest pain, rule out pulmonary embolism.COMPARISON: None.PROTOCOL: Thin | | section axial images of the chest were obtained after uneventfuladministration of 95 mL | | Omnipaque 350. Coronal and sagittal reformations wereacquired.FINDINGS:Neck base is | | normal.The heart is enlarged. Aorta is normal. The pulmonary arteries are not | | optimallyopacified. There is no definite evidence for pulmonary embolism. SVC is | | normal.No enlarged lymph nodes are seen in the mediastinum, alfa, or axilla. Tracheaand | | esophagus demonstrate no acute findings.There is mild atelectasis in the inferior aspect | | of the right upper lobe and inthe left lingula. No pleural effusion or pneumothorax is | | seen.The upper abdomen demonstrates no acute findings.Chest wall structures are normal. | | There are no acute osseous abnormalities.IMPRESSION -Pulmonary arteries not optimally | | opacified, no definite evidence for pulmonaryembolism.Cardiomegaly.This report was sent | | to the ER.Dictated and Signed by: Austin Crane MD Electronically signed: 03/17/2015 | | 11:12 AM | |opacified. There is no definite evidence for pulmonary embolism. SVC is normal. | | | |No enlarged lymph nodes are seen in the mediastinum, alfa, or axilla. Trachea | |and esophagus demonstrate no acute findings. | | | |There is mild atelectasis in the inferior aspect of the right upper lobe and in | |the left lingula. No pleural effusion or pneumothorax is seen. | | | |The upper abdomen demonstrates no acute findings. | | | |Chest wall structures are normal. There are no acute osseous abnormalities. | | | |IMPRESSION - | |Pulmonary arteries not optimally opacified, no definite evidence for pulmonary | |embolism. | | | |Cardiomegaly. | | | |This report was sent to the ER. | | | |Dictated and Signed by: Austin Crane MD | | Electronically signed: 03/17/2015 11:12 AM | + + + +---------+ + + | Performing | Address | City/State[facility] | Phone Number | | Organization | | | | + +---------+ + + | [facility] | | | | + +---------+ + + CT Abdomen Pelvis w Contrast (03/17/2015 10:21 AM PST) + + | Specimen | + + | | + + + + + | Narrative | Performed At | + + + | CT ABDOMEN PELVIS W CONTRAST 03/17/2015 9:57 AM HISTORY: History | [facility] | | of ascites, fall one week ago with increased pain and distention. | | | COMPARISON: None. PROTOCOL: Axial images of the abdomen and | | | pelvis were obtained after administration of 95 mL Omnipaque 350. | | | Coronal and sagittal reformations were acquired. FINDINGS: The | | | liver demonstrates a lobular contour that suggests cirrhosis. Multiple | | | small gallstones are visualized within the gallbladder lumen | | | particularly at the neck with no evidence for cholecystitis. Biliary | | | ducts are unremarkable. The spleen is unremarkable. The pancreas | | | demonstrates normal parenchyma and a normal pancreatic duct. Adrenal | | | glands are normal. The right kidney and visualized ureter are | | | normal. The left kidney and visualized ureter are normal. | | | Stomach, small bowel, and terminal ileum are normal. The appendix has | | | a normal appearance. Colon is unremarkable. Aorta is | | | nonaneurysmal. The iliac arteries are normal. The main portal vein and | | | the hepatic veins are hypoplastic. Numerous collateral vessels are | | | visualized in the region of the spleen and surrounding the distal | | | esophagus. No enlarged lymph nodes are visualized within the | | | omentum or retroperitoneum. A large amount of ascites is observed | | | throughout the abdomen and pelvis with simple composition. | | | Bladder is normal. Uterus and adnexa are normal. There is | | | moderate, diffuse subcutaneous fluid that is consistent with anasarca. | | | There are no acute osseous abnormalities. IMPRESSION - Large | | | amount of ascites throughout the abdomen and pelvis. Cirrhotic | | | appearing liver with numerous collateral vessels that suggest portal | | | venous hypertension. Moderate, diffuse anasarca. Gallstones | | | with no evidence for cholecystitis. This report was sent to the | | | ER. Dictated and Signed by: Austin Crane MD Electronically | | | signed: 03/17/2015 11:22 AM | | + + + + + | Procedure Note | + + | Jermaine, Rad Results In - 03/17/2015 11:[address] ABDOMEN PELVIS W CONTRAST 03/17/2015 | | 9:57 AMHISTORY: History of ascites, fall one week ago with increased pain | | anddistention.COMPARISON: None.PROTOCOL: Axial images of the abdomen and pelvis were | | obtained afteradministration of 95 mL Omnipaque 350. Coronal and sagittal reformations | | wereacquired.FINDINGS:The liver demonstrates a lobular contour that suggests cirrhosis. | | Multiple smallgallstones are visualized within the gallbladder lumen particularly at the | | neckwith no evidence for cholecystitis. Biliary ducts are unremarkable.The spleen is | | unremarkable. The pancreas demonstrates normal parenchyma and anormal pancreatic duct. | | Adrenal glands are normal.The right kidney and visualized ureter are normal.The left | | kidney and visualized ureter are normal.Stomach, small bowel, and terminal ileum are | | normal. The appendix has a normalappearance. Colon is unremarkable.Aorta is | | nonaneurysmal. The iliac arteries are normal. The main portal vein andthe hepatic veins | | are hypoplastic. Numerous collateral vessels are visualized inthe region of the spleen | | and surrounding the distal esophagus.No enlarged lymph nodes are visualized within the | | omentum or retroperitoneum.A large amount of ascites is observed throughout the abdomen | | and pelvis withsimple composition.Bladder is normal.Uterus and adnexa are normal.There | | is moderate, diffuse subcutaneous fluid that is consistent with anasarca.There are no | | acute osseous abnormalities.IMPRESSION -Large amount of ascites throughout the abdomen | | and pelvis.Cirrhotic appearing liver with numerous collateral vessels that suggest | | portalvenous hypertension.Moderate, diffuse anasarca.Gallstones with no evidence for | | cholecystitis.This report was sent to the ER.Dictated and Signed by: Austin Crane MD | | Electronically signed: 03/17/2015 11:22 AM | | | |Stomach, small bowel, and terminal ileum are normal. The appendix has a normal | |appearance. Colon is unremarkable. | | | |Aorta is nonaneurysmal. The iliac arteries are normal. The main portal vein and | |the hepatic veins are hypoplastic. Numerous collateral vessels are visualized in | |the region of the spleen and surrounding the distal esophagus. | | | |No enlarged lymph nodes are visualized within the omentum or retroperitoneum. | | | |A large amount of ascites is observed throughout the abdomen and pelvis with | |simple composition. | | | |Bladder is normal. | | | |Uterus and adnexa are normal. | | | |There is moderate, diffuse subcutaneous fluid that is consistent with anasarca. | |There are no acute osseous abnormalities. | | | |IMPRESSION - | |Large amount of ascites throughout the abdomen and pelvis. | | | |Cirrhotic appearing liver with numerous collateral vessels that suggest portal | |venous hypertension. | | | |Moderate, diffuse anasarca. | | | |Gallstones with no evidence for cholecystitis. | | | |This report was sent to the ER. | | | |Dictated and Signed by: Austin Crane MD | | Electronically signed: 03/17/2015 11:22 AM | + + + +---------+ + + | Performing | Address | City/State/Zipcode | Phone Number | | Organization | | | | + +---------+ + + | [facility] | | | | + +---------+ + + XR Chest AP Portable (03/17/2015 9:10 AM PST) + + | Specimen | + + | | + + + + + | Narrative | Performed At | + + + | EXAM: XR CHEST AP PORTABLE dated 03/17/2015 9:10 AM HISTORY: | [facility] | | Dyspnea Comparison: None. TECHNIQUE: A single portable view of | | | the chest. FINDINGS: Elevated right hemidiaphragm. Basilar | | | atelectasis. Questionable blunting of the right prosthetic angle. | | | Hazy density in the right midlung. Mild prominence of the cardiac | | | silhouette. This is in part possibly technique related. No | | | visible acute osseous abnormality. IMPRESSION - Blunting of | | | the right costophrenic angle, right lung atelectasis and possible | | | right midlung infiltrate. The findings are nonspecific. Correlate | | | for signs and symptoms of infection. Mild cardiomegaly. The | | | patient is scheduled for a CT pulmonary angiogram today. Dictated | | | and Signed by: Hakeem Barroso MD Electronically signed: 03/17/2015 | | | 10:31 AM | | + + + + + | Procedure Note | + + | Jermaine, Rad Results In - 03/17/2015 10:35 AM PST EXAM: XR CHEST AP PORTABLE dated | | 03/17/2015 9:10 AMHISTORY: DyspneaComparison: None.TECHNIQUE: A single portable view of | | the chest.FINDINGS:Elevated right hemidiaphragm. Basilar atelectasis. Questionable | | blunting ofthe right prosthetic angle. Hazy density in the right midlung. Mild | | prominenceof the cardiac silhouette. This is in part possibly technique related. | | Novisible acute osseous abnormality. IMPRESSION -Blunting of the right costophrenic | | angle, right lung atelectasis and possibleright midlung infiltrate. The findings are | | nonspecific. Correlate for signs andsymptoms of infection.Mild cardiomegaly.The patient | | is scheduled for a CT pulmonary angiogram today.Dictated and Signed by: Hakeem Osullivan | | MD Dharmesh Electronically signed: 03/17/2015 10:31 AM | |the right prosthetic angle. Hazy density in the right midlung. Mild prominence | |of the cardiac silhouette. This is in part possibly technique related. No | |visible acute osseous abnormality. | | | |IMPRESSION - | | | |Blunting of the right costophrenic angle, right lung atelectasis and possible | |right midlung infiltrate. The findings are nonspecific. Correlate for signs and | |symptoms of infection. | | | |Mild cardiomegaly. | | | |The patient is scheduled for a CT pulmonary angiogram today. | | | |Dictated and Signed by: Hakeem Barroso MD | | Electronically signed: 03/17/2015 10:31 AM | + + + +---------+ + + | Performing | Address | City/State/Zipcode | Phone Number | | Organization | | | | + +---------+ + + | [facility] | | | | + +---------+ + + XR Knee Right 1 - 2 Vw (03/17/2015 9:09 AM PST) + + | Specimen | + + | | + + + + + | Narrative | Performed At | + + + | EXAM: XR KNEE RIGHT 1 - 2 VW dated 03/17/2015 12:00 AM | [facility] | | HISTORY:fall x 1 wk COMPARISON: None. FINDINGS:Frontal and | | | lateral views of the right knee. There is normal mineralization. | | | No visible fracture or dislocation. There is a very prominent | | | amount of soft tissue anterior to the inferior one half of the patella | | | and along the course of the patellar tendon. No patellar. No | | | radiopaque foreign bodies. Diffuse subcutaneous edema. | | | IMPRESSION - No acute osseous abnormality. Significant | | | prepatellar soft tissue thickening. Dictated and Signed by: Hakeem | | | Shi Barroso MD Electronically signed: 03/17/2015 9:13 AM | | + + + + + | Procedure Note | + + | Edgardo Dean Results In - 03/17/2015 9:16 AM PST EXAM: XR KNEE RIGHT 1 - 2 VW dated | | 03/17/2015 12:00 AMHISTORY:fall x 1 wkCOMPARISON: None.FINDINGS:Frontal and lateral views | | of the right knee. There is normalmineralization. No visible fracture or dislocation. | | There is a very prominentamount of soft tissue anterior to the inferior one half of | | the patella and alongthe course of the patellar tendon. No patellar. No radiopaque | | foreign bodies. Diffuse subcutaneous edema.IMPRESSION -No acute osseous | | abnormality.Significant prepatellar soft tissue thickening.Dictated and Signed by: Hakeem | | Shi Barroso MD Electronically signed: 03/17/2015 9:13 AM | |amount of soft tissue anterior to the inferior one half of the patella and along | |the course of the patellar tendon. No patellar. No radiopaque foreign bodies. | |Diffuse subcutaneous edema. | | | |IMPRESSION - | | | |No acute osseous abnormality. | | | |Significant prepatellar soft tissue thickening. | | | |Dictated and Signed by: Hakeem Barroso MD | | Electronically signed: 03/17/2015 9:13 AM | + + + +---------+ + + | Performing | Address | City/State/Zipcode | Phone Number | | Organization | | | | + +---------+ + + | [facility] | | | | + +---------+ + + Extra Green Top Tube (03/17/2015 8:20 AM PST) + +-------+ + + + | Component [...] + | [facility] | [address] | [place] | [phone] | | [facility] | | [address] | | | - LABORATORY | | | | + + + + + Extra Gold Top Tube (03/17/2015 8:20 AM PST) + +-------+ + + + | Component | Value | Ref Range | Performed | Pathologist | | | | | At | Signature | + +-------+ + + + | Extra Gold | Done | | [facility] | | | Top Tube | | | [facility] | | [...] [address] | [place] | [phone] | | [facility] | | [address] | | | - LABORATORY | | | | + + + + + Ammonia (03/17/2015 8:20 AM PST) + +--------+ + + + | Component | Value | Ref Range | Performed | Pathologist | | | | | At | Signature | + +--------+ + + + | Ammonia | 40 (H) | 11 - 35 umol/L | [facility] | | | | | | [facility] [...] [address] | [place] | [phone] | | [facility] | | [address] | | | - LABORATORY | | | | + + + + + B Type Natriuretic Peptide (03/17/2015 8:20 AM PST) + +-------+ + + + | Component | Value | Ref Range | Performed | Pathologist | | | | | At | Signature | + +-------+ + + + | BNP | 54 | <100 pg/mL | [facility] | | | | | [...] + | [facility] | [address] | [place] | [phone] | | [facility] | | [address] | | | - LABORATORY | | | | + + + + + Protime INR (03/17/2015 8:20 AM PST) + + + + + + | Component | Value | Ref Range | Performed | Pathologist | | | | | At | Signature | + + + + + + | Prothrombin | 16.5 (H) | 11.3 - 13.9 | [facility] | | | Time | | seconds | [facility] | | | | | | [facility]ICAL | | | | | | CENTER - | | | | | | LABORATORY | | + + + + + + | INR | 1.27 (H)Comment: Usual | 0.90 - 1.10 | [facility] | | | | Oral Anticoagulation | | [facility] | | | | Range: 2.0 - [...] [address] | [place] | [phone] | | [facility] | | [address] | | | - LABORATORY | | | | + + + + + Lipase (03/17/2015 8:20 AM PST) + +-------+ + + + | Component | Value | Ref Range | Performed | Pathologist | | | | | At | Signature | + +-------+ + + + | Lipase | 27 | 0 - 60 U/L | [facility] [...] [address] | [place] | [phone] | | [facility] | | [address] | | | - LABORATORY | | | | + + + + + Comprehensive Metabolic Panel (03/17/2015 8:20 AM PST) + + + + + + | Component | Value | Ref Range | Performed | Pathologist | | | | | At | Signature | + + + + + + | Na | 132 (L) | 136 - 149 | [facility] | | | | | mmol/L | [facility] | | | | | | MEDICAL | | | | | | CENTER - | | | | | | LABORATORY | | + + + + + + | K | 3.8 | 3.5 - 5.1 | [facility] | | | | | mmol/L | [facility] | | | | | | MEDICAL | | | | | | CENTER - | | | | | | LABORATORY | | + + + + + + | Cl | 102 | 98 - 109 mmol/L | [facility] | | | | | | [facility] | | | | | | MEDICAL | | | | | | CENTER - | | | | | | LABORATORY | | + + + + + + | CO2 | 25 | 24 - 31 mmol/L | [facility] [...] + + + + | Glucose | 94 | 70 - 109 mg/dL | [facility] | | | | | | [facility] | | | | | | MEDICAL | | | | | | CENTER - | | | | | | LABORATORY | | + + + + + + | BUN | 4 (L) | 7 - 18 mg/dL | [facility] | | | | | | [facility] | | | | | | MEDICAL | | | | | | CENTER - | | | | | | LABORATORY | | + + + + + + | Creatinine | 0.43 (L) | 0.60 - 1.30 | [facility] [...] non- | FILTRATION | mL/min/1.73m2 | [facility] | | | [place] | RATE,ESTIMATED | | MEDICAL | | | | mL/min/1.68l4Upnk than | | CENTER - | | [...] + + + | Calcium | 7.2 (L) | 8.3 - 10.5 | [facility] | | | | | mg/dL | [facility] | | | | | | MEDICAL | | | | | | CENTER - | | | | | | LABORATORY | | + + + + + + | Albumin | 1.3 (L) | 3.2 - 5.0 g/dL | [facility] | | | | | | [facility] | | | | | | MEDICAL | | | | | | CENTER - | | | | | | LABORATORY | | + + + + + + | Bilirubin | 0.9Comment: This is an | 0.1 - 1.5 mg/dL | [facility] | | | Total | appended report. These | | [facility] | | | | results have been | | MEDICAL | | | | appended to a previously | | CENTER - | | | | preliminary verified | | LABORATORY | | | | report. | | | | + + + + + + | Total | 5.8 (L) | 6.0 - 7.8 g/dL | [facility] | | | Protein | | | [facility] | | | | | | MEDICAL | | | | | | CENTER - | | | | | | LABORATORY | | + + + + + + | AST | 69 (H)Comment: This is | 10 - 42 [...] + + + + | ALT | 12Comment: This is an | 6 - 45 U/L | [facility] | | | | appended report. These | | [facility] | | | | results have been | | MEDICAL | | | | appended to a previously | | CENTER - | | | | preliminary verified | | LABORATORY | | | | report. | | | | + + + + + + | Alkaline | 158 (H)Comment: This is | 40 - 110 [...] + + + + | Globulin | 4.5 | g/dL | [facility] | | | | | | [facility] | | | | | | MEDICAL | | | | | | CENTER - | | | | | | LABORATORY | | + + + + + + | Albumin/Joana | 0.3 | | [facility] | | | bulin Ratio | | | [facility] | | | | | | MEDICAL | | | | | | CENTER - | | | | | | LABORATORY | | + + + + + + | BUN/Creatin | 9.3 | | [facility] | | | ine [...] | + + + + + | [facility] | [address] | [place] | [phone] | | [facility] | | [address] | | | - LABORATORY | | | | + + + + + CBC with Differential (03/17/2015 8:20 AM PST) + + + + + + | Component | Value | Ref Range | Performed | Pathologist | | | | | At | Signature | + + + + + + | White Blood | 3.7 (L) | 4.0 - 11.0 K/uL | [facility] | | | Cells | | | [facility] | | | | | | MEDICAL | | | | | | CENTER - | | | | | | LABORATORY | | + + + + + + | Red Blood | 2.59 (L) | 3.70 - 5.20 | [facility] | | | Cells | | M/uL | [facility] | | | | | | MEDICAL | | | | | | CENTER - | | | | | | LABORATORY | | + + + + + + | Hemoglobin | 8.5 (L) | 11.5 - 16.0 | [facility] | | | | | g/dL | [facility] | | | | | | MEDICAL | | | | | | CENTER - | | | | | | LABORATORY | | + + + + + + | Hematocrit | 25.5 (L) | 34.0 - 47.0 % | [facility] | | | | | | [facility] | | | | | | MEDICAL | | | | | | CENTER - | | | | | | LABORATORY | | + + + + + + | MCV | 98.2 | 83.0 - 101.0 fL | [facility] | | | | | | [facility] | | | | | | MEDICAL | | | | | | CENTER - | | | | | | LABORATORY | | + + + + + + | MCH | 32.6 | 28.0 - 35.0 pg | [facility] [...] + + + + | RDW-CV | 14.5 | <15.0 % | [facility] | | | | | | [facility] | | | | | | MEDICAL | | | | | | CENTER - | | | | | | LABORATORY | | + + + + + + | Platelet | 115 (L) | 140 - 440 K/uL | [facility] | | | Count | | | [facility] | | | | | | MEDICAL | | | | | | CENTER - | | | | | | LABORATORY | | + + + + + + | MPV | 8.3 | fL | [facility] | | | | | | [facility] | | | | | | MEDICAL | | | | | | CENTER - | | | | | | LABORATORY | | + + + + + + | % | 62.6 | 45.0 - 82.0 % | [facility] | | | Neutrophils | | | [facility] | | | | | | MEDICAL | | | | | | CENTER - | | | | | | LABORATORY | | + + + + + + | % | 15.0 (L) | 20.0 - 45.0 % | [facility] | | | Lymphocytes | | | [facility] | | | | | | MEDICAL | | | | | | CENTER - | | | | | | LABORATORY | | + + + + + + | % Monocytes | 16.9 (H) | 4.0 - 12.0 % | [facility] | | | | | | [facility] | | | | | | MEDICAL | | | | | | CENTER - | | | | | | LABORATORY | | + + + + + + | % | 5.0 | 0.0 - 5.0 % | [facility] | | | Eosinophils | | | [facility] | | | | | | MEDICAL | | | | | | CENTER - | | | | | | LABORATORY | | + + + + + + | % Basophils | 0.5 | 0.0 - 1.0 % | [facility] | | | | | | [facility] | | | | | | MEDICAL | | | | | | CENTER - | | | | | | LABORATORY | | + + + + + + | Absolute | 2.30 | 1.80 - 8.50 | [facility] | | | Neutrophils | | K/uL | [facility] | | | | | | MEDICAL | | | | | | CENTER - | | | | | | LABORATORY | | + + + + + + | Absolute | 0.60 | 0.60 - 3.20 | [facility] | | | Lymphocytes | | K/uL | [facility] | | | | | | MEDICAL | | | | | | CENTER - | | | | | | LABORATORY | | + + + + + + | Absolute | 0.60 | 0.00 - 1.00 | [facility] | | | Monocytes | | K/uL | [facility] | | | | | | MEDICAL | | | | | | CENTER - | | | | | | LABORATORY | | + + + + + + | Absolute | 0.20 | 0.00 - 0.40 | [facility] | | | Eosinophils | | K/uL | [facility] | | | | | | MEDICAL | | | | | | CENTER - | | | | | | LABORATORY | | + + + + + + | Absolute | 0.00 | 0.00 - 0.10 | [facility] | [...] ST. | [address] | [place] | [phone] | | [facility] | | [address] | | | - LABORATORY | | | | + + + + + VAS Lower Extremity Venous Right (03/17/2015 8:07 AM PST) + + | Specimen | + + | | + + + + + | Narrative | Performed At | + + + | EXAM: VAS LOWER EXTREMITY VENOUS RIGHT dated 03/17/2015 8:07 AM. | [facility] | | HISTORY: fall 1 wk ago, now with lower leg swelling. COMPARISON: | | | None. TECHNIQUE: Compression sonography was performed from the | | | groin through the popliteal fossa in the Right lower extremity. | | | Grayscale and spectral Doppler analysis is performed. FINDINGS: | | | There is phasic respiratory flow in all areas sampled. There is | | | response to Valsalva in the common femoral vein. There is response | | | to calf augmentation in all areas sampled. There is normal and | | | complete compressibility in all areas sampled. There are no visible | | | thrombi. There is respiratory phasic flow in the sampled portion | | | of the Left common femoral vein. Diffuse subcutaneous edema. | | | IMPRESSION - No evidence for right lower extremity deep venous | | | thrombosis. The preliminary findings were conveyed to the ordering | | | provider, by the abrasive worker, immediately following the exam. | | | Dictated and Signed by: Hakeem Barroso MD Electronically signed: | | | 03/17/2015 8:09 AM | | + + + + + | Procedure Note | + + | Jermaine, Rad Results In - 03/17/2015 8:12 AM PST EXAM: VAS LOWER EXTREMITY VENOUS RIGHT | | dated 03/17/2015 8:07 AM.HISTORY: fall 1 wk ago, now with lower leg swelling.COMPARISON: | | None.TECHNIQUE: Compression sonography was performed from the groin through thepopliteal | | fossa in the Right lower extremity. Grayscale and spectral Doppleranalysis is | | performed.FINDINGS: There is phasic respiratory flow in all areas sampled. There | | isresponse to Valsalva in the common femoral vein. There is response to | | calfaugmentation in all areas sampled. There is normal and complete compressibilityin | | all areas sampled. There are no visible thrombi.There is respiratory phasic flow in the | | sampled portion of the Left commonfemoral vein.Diffuse subcutaneous edema.IMPRESSION | | -No evidence for right lower extremity deep venous thrombosis.The preliminary findings | | were conveyed to the ordering provider, by thesonographer, immediately following the | | exam.Dictated and Signed by: Hakeem Barroso MD Electronically signed: 03/17/2015 8:09 | | AM | |in all areas sampled. There are no visible thrombi. | | | |There is respiratory phasic flow in the sampled portion of the Left common | |femoral vein. | | | |Diffuse subcutaneous edema. | | | |IMPRESSION - | | | |No evidence for right lower extremity deep venous thrombosis. | | | |The preliminary findings were conveyed to the ordering provider, by the | |abrasive worker, immediately following the exam. | | | | | |Dictated and Signed by: Hakeem Barroso MD | | Electronically signed: 03/17/2015 8:09 AM | + + + +---------+ + + | Performing | Address | City/State/Zipcode | Phone Number | | Organization | | | | + +---------+ + + | [facility] | | | | + +---------+ + + Culture, Urine (03/17/2015 7:11 AM PST) + + + + + + | Component | Value | Ref Range | Performed | Pathologist | | | | | At | Signature | + + + + + + | Culture | >100,000 CFU/ml | | [facility] | | | | Escherichia coliComment: | | [facility] | | | | *INFECTION PREVENTION | | MEDICAL | | | | ALERT - ESBL* ESBLs | | CENTER - | | | | are enzymes that | | LABORATORY | | | | mediate resistance to | | | | | | extended-spectrum | | | | | | (third generation) | | | | | | cephalosporins | | | | | | (e.g.,ceftazidime, | | | | | | cefotaxime, | | | | | | (aztreonam) but do not | | | | | | affect | | | | | | cephamycins(cefoxitin | | | | | | and cefotetan) | | | | | | orcarbapenems | | | | | | (e.g.,meropenem or | | | | | | imipenem). Patients who | | | | | | are identified with | | | | | | these organisms should | | | | | | be placed into CONTACT | | | | | | PRECAUTIONS. | | | | + + + + + + + + | Specimen | + + | Urine - Urine | | specimen (specimen) | + + + + +--------+ + | Organism | Antibiotic | Method | Susceptibility | + + +--------+ + | Escherichia coli | Ampicillin | | >=32: Resistant | + + +--------+ + | Escherichia coli | Ampicillin + | | >=32: Resistant | | | Sulbactam | | | + + +--------+ + | Escherichia coli | Cefazolin | | >=64: Resistant | + + +--------+ + | Escherichia coli | Cefoxitin | | 8: Sensitive | + + +--------+ + | Escherichia coli | Ceftazidime | | Resistant | + + +--------+ + | Escherichia coli | Ceftriaxone | | >=64: Resistant | + + +--------+ + | Escherichia coli | Ciprofloxacin | | >=4: Resistant | + + +--------+ + | Escherichia coli | Ertapenem | | <=0.5: Sensitive | + + +--------+ + | Escherichia coli | Gentamicin | | <=1: Sensitive | + + +--------+ + | Escherichia coli | Meropenem | | <=0.25: Sensitive | + + +--------+ + | Escherichia coli | Nitrofurantoin | | <=16: Sensitive | + + +--------+ + | Escherichia coli | Piperacillin + | | <=4: Sensitive | | | Tazobactam | | | + + +--------+ + | Escherichia coli | Tobramycin | | <=1: Sensitive | + + +--------+ + | Escherichia coli | Trimethoprim + | | >=320: Resistant | | | Sulfamethoxazole | | | + + +--------+ + + + + + + | Performing | Address | City/State/Zipcode | Phone Number | | Organization | | | | + + + + + | [facility] | [address] | [place] | [phone] | | [facility] | | [address] | | | - LABORATORY | | | | + + + + + Urinalysis with Microscopic with Culture if Indicated (03/17/2015 7:11 AM PST) + + + + + + | Component | Value | Ref Range | Performed | Pathologist | | | | | At | Signature | + + + + + + | Color, | Yellow | Light Yellow, | [facility] | | | Urine | | Yellow | [facility] | | | | [...] + + + | pH, Urine | 5.5 | 5.0 - 8.0 | [facility] | | | | | | [facility] | | | | | | MEDICAL | | | | | | CENTER - | | | | | | LABORATORY | | + + + + + + | Specific | <=1.005 | 1.001 - 1.030 | [facility] | | | [place], | | | [facility] | | | Urine | | | MEDICAL | | | | | | CENTER - | | | | | | LABORATORY | | + + + + + + | Protein, | Negative | Negative | [facility] | [...] + + + + | Leukocyte | Small (A) | Negative | [facility] | | | Esterase, | | | [facility] | | | Urine | | | MEDICAL | | | | | | CENTER - | | | | | | LABORATORY | | + + + + + + | Urobilinoge | 2.0 E.U./dL (A) | 0.2 E.U./dL, | [facility] | | | n, Urine | | 1.0 E.U./dL | [facility] | | | | [...] + + + | Red Blood | 0-2 | 0 - 2 /HPF | [facility] | | | Cells, | | | [facility] | | | Urine | | | MEDICAL | | | | | | CENTER - | | | | | | LABORATORY | | + + + + + + | Squamous | 5-10 (A) | 0 - 2 /LPF | [facility] | | | Epithelial | | | [facility] | | | Cells, | | | MEDICAL | | | Urine | | | CENTER - | | | | | | LABORATORY | | + + + + + + | Bacteria, | 2+ (A) | Negative /HPF | [facility] | | | Urine | | | [facility] | | | | | | MEDICAL | | | | | | CENTER - | | | | | | LABORATORY | | + + + + + + | Urine | Urine Culture Set Up | | [facility] | | | Comment | | | [facility] | | | | | | MEDICAL | | | | | | CENTER - | | | | | | LABORATORY | | + + + + + + + + | Specimen | + + | Urine - Urine | | specimen (specimen) | + + + + + + + | Performing | Address | City/State/Zipcode | Phone Number | | Organization | | | | + + + + + | [facility] | [address] | [place], [place] | [phone] | | [facility] | | [address] | | | - LABORATORY | | | | + + + + + documented in this encounter Visit Diagnoses + + | Diagnosis | + + | Urinary tract infection without hematuria, site unspecified - Primary | + + | Anemia, unspecified anemia type | + + | Contusion of right knee, initial encounter | + + | Hepatic encephalopathy (HCC) Hepatic encephalopathy | + + documented in this encounter Administered Medications + +--------+ +--------+------+------+ | Medication Order | MAR | Action | Dose | Rate | Site | | | Action | Date | | | | + +--------+ +--------+------+------+ | cephalexin (KEFLEX) capsule 500 | Given | 03/17/20 | 500 mg | | | | mg 500 mg, Oral, ONCE, Sun | | 15 12:31 | | | | | 03/17/15 at 1235, For 1 dose | | PM PST | | | | + +--------+ +--------+------+------+ +---+---+ | | | +---+---+ + +-------+ +--------+---+---+ | fentaNYL injection 50-100 mcg | Given | 03/17/20 | 50 mcg | | | | 50-100 mcg, Intravenous, EVERY 30 | | 15 10:51 | | | | | MIN PRN, Pain, Severe Pain, | | AM PST | | | | | Starting Sun03/17/15 at 1046, For | | | | | | | 4 doses | | | | | | + +-------+ +--------+---+---+ +---+---+ | | | +---+---+ + +-------+ +--------+---+---+ | iohexol (OMNIPAQUE 350) 350 | Given | 03/17/20 | 95 mLs | | | | mg/mL injection 95 mL 95 mL, | | 15 10:22 | | | | | Intravenous, ONCE PRN, Other, | | AM PST | | | | | Starting Sun03/17/15 at 1021, For | | | | | | | 1 dose, [facility] Sc[facility] | | | | | | + +-------+ +--------+---+---+ +---+---+ | | | +---+---+ + +-------+ +--------+---+---+ | lactulose liquid 30 mL 30 mL, | Given | 03/17/20 | 30 mLs | | | | Oral, ONCE, Sun03/17/15 at 1150, | | 15 11:57 | | | | | For 1 dose | | AM PST | | | | + +-------+ +--------+---+---+ +---+---+ | | | +---+---+ + +---------+ +--------+-------+---+ | sodium chloride 0.9% (NS) bolus | New Bag | 03/17/20 | 30 mLs | 1800 | | | 30 mL 30 mL, Intravenous, | | 15 10:22 | | mL/hr | | | Administer over 1 Minutes, ONCE | | AM PST | | | | | PRN, for contrast study, Starting | | | | | | | 03/17/15 at 1021, For 1 dose, | | | | | | | May infuse at a different rate | | | | | | | per protocol., [facility] Scanner | | | | | | + +---------+ +--------+-------+---+ +---+---+ | | | +---+---+ + +---------+ +---+-------+---+ | sodium chloride 0.9% (NS) | New Bag | 03/17/20 | | 1000 | | | infusion at 1,000 mL/hr, | | 15 7:50 | | mL/hr | | | Intravenous, FIXED VOLUME (see | | AM PST | | | | | admin instruction), Starting Wed | | | | | | | 03/17/15 at 0710 | | | | | | + +---------+ +---+-------+---+ +---+---+ | | | +---+---+ + +-------+ +-------+---+---+ | traMADol (ULTRAM) tablet 50 mg | Given | 03/17/20 | 50 mg | | | | 50 mg, Oral, ONCE, 03/17/15 | | 15 11:56 | | | | | at 1150, For 1 dose | | AM PST | | | | + +-------+ +-------+---+---+ +---+---+ | | | +---+---+ documented in this encounter
--- OUTSIDE RECORDS SUMMARY | ~2020-01-12 | XMS | Encounter Summary ---
Demographics + + + | Address | [address] | | | [place] [address] | + + + | Home Phone | | + + + | Preferred Language | Unknown | + + + | Marital Status | Single | + + + | Sikh Affiliation | 1041 | + + + | Race | or | + + + | Ethnic Group | Not or | + + + Author + + + | Author | [facility] | | | and [place] | + + + | Organization | [facility] | | | and [place] | + + + | Address | Unknown | + + + | Phone | Unavailable | + + + Support + + + + + | Name | Relationship | Address | Phone | + + + + + | Joanne Pham | ECON | [address] | | | | | [place] | | | | | [address] | | + + + + + | Viktor Son | EDDIE | Unknown | | + + + + + | Edd Gill | ECON | Unknown | | + + + + + | Conner Barber | ECON | Unknown | | + + + + + Care Team Providers + +------+ + | Care Water Treatment Plant Operator Name | Role | Phone | + +------+ + PCP | Unavailable | + +------+ + Encounter Details +--------+ + + + + | Date | Type | Department | Care Team | Description | +--------+ + + + + | 03/23/ | Hospital | [facility] | Alyce Dumont | Seizure ([facility]); UTI | | 2012 - | Encounter | MEDICAL CENTER | [address] | (lower urinary tract | | | | CLINICAL DECISION | [address] | infection); Seizure | | 03/28/ | | [address] | [place] [address] | disorder, secondary | | 2012 | | [place], [place] | [phone] | ([facility]); Alcohol | | | | [phone] | | dependence ([facility]); | | | | [phone] | | Fever; Alcohol | | | | | | abuse; Alcohol | | | | | | withdrawal (HCC); | | | | | | Anemia; Hepatic | | | | | | encephalopathy | | | | | | (HCC); Seizure | | | | | | disorder (HCC); | | | | | | Sepsis (HCC); | | | | | | Thrombocytopenia, | | | | | | unspecified (HCC) | +--------+ + + + + [...] encounter Discharge Summaries Precious Miller MD - 04/10/2013 10:01 AM PST Discharge Summaries by Precious Miller MD at 04/10/13 1001 Author: Precious Miller MD Service: (none) Author Type: Physician Filed: 04/10/13 1008 Date of Service: 04/10/13 1001 Status: Signed Marble Coper: Precious Miller MD (Physician) [facility]: Hospitalist Note Discharge Summary Date of Admission: 03/23/2013 Date of Discharge: 03/28/2013 Treatment Team: Consulting Physician: Yareli Chandra MD Admitting Provider: Alyce Dumont MD Discharging Provider: Precious Miller MD Discharge Diagnoses: Principal Problem: *Seizure disorder, secondary to alcohol withdrawl Active Problems: Thrombocytopenia, unspecified Anemia Hepatic encephalopathy Alcohol dependence Hyposmolality and/or hyponatremia Resolved Problems: Alcohol withdrawal Sepsis(995.91) UTI (lower urinary tract infection) Hospital Course: Shaila Son is a 42 y.o. female who was admitted on 03/23/2013 after being transferred fr om an outside facility due to seizures. Patient has a long history of alcohol dependence an d a history of withdrawal seizures. She was admitted and placed on CIWA protocol She was s een by neurology, Dr. Chandra, who felt her recent seizures were all due to alcohol withdrawa l and felt she did not require any chcf anti-convulsants. She had evidence of a UTI an d possible bronchitis while in the hospital and she was treated with anti-biotics. She had evidence of alcohol associated anemia and thrombocytopenia and hyponatremia, all of which re mained stable during her stay. She had extensive work with social media specialist while in the hospital. Unfortunately, due to h er non compliance with her outpatient regimen and continued alcohol abuse she was not eligib le for inpatient alcohol rehab (please see social media specialist note.) She is being discharged i n stable condition but is at high risk for readmission due to her continued alcohol abuse an d underlying liver disease. Last CBC: WBC Date Value Range Status 03/28/2013 6.1 3.8 - 11.0 K/uL Final Testing performed at [address] [address] RBC Date Value Range Status 03/28/2013 2.70* 3.70 - 5.10 M/uL Final Testing performed at [address] [address] HGB Date Value Range Status 03/28/2013 9.3* 11.3 - 15.5 g/dL Final Testing performed at [address] [address] HCT Date Value Range Status 03/28/2013 26.5* 34.0 - 46.0 % Final Testing performed at [address] [address] MCV Date Value Range Status 03/28/2013 98.1 80.0 - 100.0 fl Final Testing performed at [address] [address] MCH Date Value Range Status 03/28/2013 34.4* 27.0 - 34.0 pg Final Testing performed at [address] [address] MCHC Date Value Range Status 03/28/2013 35.0 32.0 - 35.5 g/dL Final Testing performed at [address] [address] RDW SD Date Value Range Status 03/28/2013 51.2 37 - 53 fl Final Testing performed at [address] [address] PLT Date Value Range Status 03/28/2013 111* 150 - 400 K/uL Final Testing performed at [address] [address] MPV Date Value Range Status 03/28/2013 8.8 Final Testing performed at [address] [address] NEUTROPHILS ABS Date Value Range Status 03/28/2013 3.8 1.9 - 7.4 K/uL Final LYMPHOCYTES ABS Date Value Range Status 03/28/2013 0.6* 1.0 - 3.9 K/uL Final EOSINOPHILS ABS Date Value Range Status 03/28/2013 0.5 0 - 0.5 K/uL Final BASOPHILS ABS Date Value Range Status 03/28/2013 0.0 0 - 0.1 K/uL Final Neutrophils Manual Date Value Range Status 03/26/2013 77 Final Lymphocytes Manual Date Value Range Status 03/26/2013 9 Final Monocytes Manual Date Value Range Status 03/26/2013 8 Final Eosinophils Manual Date Value Range Status 03/26/2013 2 Final MORPHOLOGY Date Value Range Status 03/26/2013 RBC AND PLT MORPHOLOGY APPEAR NORMAL Final l Discharge Information: Follow up: Medication List As of 04/10/2013 10:01 AM START taking these medications multivitamin & minerals w iron/FA 27-0.8 MG Tabs tablet QTY: 30 each Refills: 0 Take 1 tablet by mouth daily. spironolactone 25 MG tablet QTY: 60 tablet Refills: 11 Commonly known as: ALDACTONE Take 1 tablet by mouth 2 (two) times daily. thiamine 100 MG tablet QTY: 30 tablet Refills: 11 Take 1 tablet by mouth daily. 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 You may get these medications from any pharmacy. multivitamin & minerals w iron/FA 27-0.8 MG Tabs tablet spironolactone 25 MG tablet thiamine 100 MG tablet Discharge Instructions Diet general Activity as tolerated Disposition: Home Condition: Satisfactory Code Status: Full Discharge took 40 minutes, to include final examination, discussion of admission, and prepa ration of prescriptions, instructions for on-going care, follow-up and documentation of disc harge summary. Precious Miller MD 04/10/2013 documented in thi s encounter Progress Notes Conversion Transaction, Provider Unknown - 03/28/2013 6:49 PM PSTFormatting of this note m ight be different from the original. Nurse Progress Note by Paulina Palomares RN at 03/28/131848 Author: Paulina Palomares RN Service: (none) Author Type: Registered Nurse Filed: 03/28/131848 Date of Service: 03/28/131848 Status: Signed Marble Coper: Paulina Palomares RN (Registered Nurse) Pt discharged home with brother and friend via personal vehicle. Vital signs stable at disc harge. Pt denies being SOB after breathing tx. Discharge instructions explained to patient a nd brother. All questions answered. Pt given information regarding alcohol rehab program per case management. Multiple informational pamphlets sent with patient regarding alcoholism. Dimitri Palomares RN onver miriam Transaction, Provider Unknown - 03/28/2013 11:02 AM PST Case Management by Alice Strong RN at 03/28/13 1102 Author: Alice Strong RN Service: (none) Author Type: Registered Nurse Filed: 03/28/13 5602 Date of Service: 03/28/13 1102 Status: Addendum Marble Coper: Alice Strong RN (Registered Nurse) Related Notes: Original Note by Alice Strong RN (Registered Nurse) filed at 03/28/[address] [facility] [address] [facility] [place] [address] This worker [facility] a [facility] . Per h er, pt is not eligible for services thru [facility], as she has been noncompliant with her a ppointments over the last year. Per previous contact w the [facility], pt needs to be referred to the above listed rehab center. You need to present to the assessment center on a Sunday or , bring proof of insurance, your [place] affiliation proof, photo id and proof on income. The assessment c enter is located at [address] [facility] in [facility], their phone number is . . I met the pt this am, and she was awake, and alert. I let her know, [facility] would not be a resource and encouraged her to follow up with [facility]. 1055-Notified Dr Miller- pt will not be able to placed in an alcohol facility. 1110- Request primary RN notiify me when the family arrives- so I can let them know how to assist the pt w self referral to alcohol rehab. 1250-Per primary RN- Paulina- family will be here between 5 and 6, she will review rehab e ania instructions w brother. 1529-Rec a call from Liset-at [facility]- let her know, pt will be gi shawn information to follow up At [facility] in [place], she will follow up with the the pt as an outpatient to assist her with referral to alcohol rehab. Precious Anguiano MD - 03/28/2013 10:19 AM PSTFormatting of this note might be different from th e original. Progress Notes by Precious Miller MD at 03/28/13 1019 Author: Precious Miller MD Service: (none) Author Type: Physician Filed: 03/28/13 1027 Date of Service: 03/28/13 1019 Status: Signed Marble Coper: Precious Miller MD (Physician) [facility]: Hospitalist Progress Note Hospital Day: LOS: 5 days SUBJECTIVE Patient Summary: 42 y/o female transferred from [place] with alcohol w ithdrawal seizures. Seen by Dr. Chandra, no indication for seizure medications. She has now been off valium for withdrawal x 24 hours. She has bronchitis and is being switched from Ro cephin to keflex today. The goal is to get her into an alcohol rehab program in [place]. Sh e is okay for discharge today, but high risk for readmission due to chronic liver disease. Events Overnight: No real complaints. Very soft spoken. Brother not in room today. No seizures. No headache or vomiting. Cough better. Scheduled Medications cephALEXin 500 mg Oral Q8H lactulose 20 g Oral TID multivitamin & minerals w iron/FA 1 tablet Oral Daily spironolactone 25 mg Oral BID thiamine 100 mg Oral Q24H [DISCONTINUED] cefTRIAXone 1 g Intravenous Q24H Continuous Infusions PRN Medications aluminum-magnesium hydroxide-simethicone, cloNIDine, diazepam, diazepam, diazepam, guaifene sin-dextromethorphan, ipratropium-albuterol, LORazepam, LORazepam, LORazepam, morphine, onda nsetron, polyethylene glycol, zolpidem, [DISCONTINUED] magnesium sulfate, [DISCONTINUED] mag nesium sulfate, [DISCONTINUED] magnesium sulfate, [DISCONTINUED] morphine, [DISCONTINUED] mo rphine, [DISCONTINUED] ondansetron, [DISCONTINUED] phosphorus [DISCONTINUED] potassium chloride, [DISCONTINUED] potassium chloride, [DISCONTINUED] potass ium chloride, [DISCONTINUED] sodium glycerophosphate IVPB 15 mMol, [DISCONTINUED] sodium gly cerophosphate IVPB 30 mMol OBJECTIVE Vital Signs: BP 141/90 | Pulse 100 | Temp 98.3 F (36.8 C) (Oral) | Resp 18 | Ht 1.702 m (5' 7") | Wt 76.93 kg (169 lb 9.6 oz) | BMI 26.56 kg/m2 | SpO2 96% | ? No Temp: [98.2 F (36.8 C)-98.8 F (37.1 C)] 98.3 F (36.8 C) (03/28 722) BP: (124-154)/(84-90) 141/90 mmHg (03/28 722) Heart Rate: [100-105] 100 (03/28 722) Resp: [16-20] 18 (03/28 722) SpO2: [95 %-98 %] 96 % (03/28 722) Weight: [76.93 kg (169 lb 9.6 oz)] 76.93 kg (169 lb 9.6 oz) (03/28 301) Physical Exam Nursing note and vitals reviewed. Constitutional: She appears well-nourished. No distress. HENT: Head: Normocephalic. Eyes: Pupils are equal, round, and reactive to light. Neck: Normal range of motion. Cardiovascular: Normal rate. Pulmonary/Chest: Effort normal. Abdominal: Soft. Distended Musculoskeletal: She exhibits edema. Neurological: She is alert. Skin: Skin is warm and dry. Psychiatric: Flat affect DATA Lab 03/28/13 0420 03/27/1344803/26/13 0500 WBC 6.1 7.2 11.4* HGB 9.3* 8.9* 10.5* HCT 26.5* 25.4* 31.0* PLT 111* 98* 118* Lab 03/28/13 0420 03/27/13 0449 03/26/13 0500 NA 129* 128* 130* K 4.0 4.1 4.3 CL 106 104 106 CO2 20* 20* 18* BUN 7* 8 6* CREATININE 0.39* 0.50 0.53 CALCIUM -- -- -- PROT 5.6* 5.5* 6.5 BILITOT 1.3 1.2 1.4 ALKPHOS -- -- -- ALT 15 13 14 AST 45 43 49* GLUCOSE -- -- -- PROBLEM LIST Principal Problem: *Seizure disorder, secondary Active Problems: Thrombocytopenia, unspecified Anemia Hepatic encephalopathy Seizure disorder Sepsis(995.91) UTI (lower urinary tract infection) Alcohol dependence Hyposmolality and/or hyponatremia ASSESSMENT & PLAN 1. Alcohol withdrawal with seizures- resolved. Now off valium x 24 hours. No need for se izure medications. 2. ESLD with hepatic encephalopathy- stable on lactulose. Extensive counseling to stop Et OH. Plan placement in alcohol rehab facility. 3. Anemia and thrombocytopenia due to alcohol abuse- stable 4. UTI and bronchitis- change rocephin to keflex, complete 4 more days. Awaiting PT eval and placement in alcohol rehab facility. Ok for discharge today. Disposition: Alcohol rehab facility. Code Status: Full Code Precious Miller MD 03/28/2013 Yareli Pritchett MD - 03/28/2013 8:14 AM PST Progress Notes by Yareli Chandra MD at 03/28/13813 Author: Yareli Chandra MD Service: Neurology Author Type: Physician Filed: 03/28/13 5748 Date of Service: 03/28/13813 Status: Signed Marble Coper: Yareli Chandra MD (Physician) Subjective: Patient seen and examined. Shaila Son is a 42 y.o. female admitted to the hospital with possible alcohol-related se izures. Patient Summary: please refer to H&P and My consult. Current complaints: She is doing Ok over night, still tachycardiac, jittery and sleepy but following commands and answer questions appropriately. Objective: Vitals: Temp: [98.2 F (36.8 C)-98.8 F (37.1 C)] 98.3 F (36.8 C) Heart Rate: [100-105] 100 Resp: [16-20] 18 BP: (124-154)/(84-90) 141/90 mmHg Speech: Is normal; fluent and spontaneous. Cognition: The patient is oriented to person, place, and time. Cranial Nerves: At this time, the pupils are equal, round, and reactive to light. Visual fi elds are full to finger confrontation. Extraocular movements are intact. The face is symmetr ic. Coordination: Normal finger to nose. Strength: Strength is 5/5 in the upper and lower limbs. Light Touch: Normal light touch sensation in upper and lower extremities. CURRENT MEDICATIONS: Scheduled Meds: cefTRIAXone 1 g Intravenous Q24H lactulose 20 g Oral TID multivitamin & minerals w iron/FA 1 tablet Oral Daily spironolactone 25 mg Oral BID thiamine 100 mg Oral Q24H Labs Lab Results Component Value Date WBC 6.1 03/28/2013 HGB 9.3* 03/28/2013 HCT 26.5* 03/28/2013 MCV 98.1 03/28/2013 PLT 111* 03/28/2013 Lab Results Component Value Date CREATININE 0.39* 03/28/2013 BUN 7* 03/28/2013 NA 129* 03/28/2013 K 4.0 03/28/2013 CL 106 03/28/2013 CO2 20* 03/28/2013 M.3 Po4: 3.1 Images: Head CT: 1. No acute intracranial hemorrhage. 2. 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 EEG: Unremarkable, mild generalized nonspecific cerebral dysfunction. No ictal or interictal dis charges. Assessment: 1- Two seizures reported after quitting drinking in patient with h/o alcohol abuse and freq uent alcohol related seizures. Most Likely provoked seizure. 2- Alcohol withdrawal with hyponatremia. 3- UTI and URTI, on rocephin. 4- Cirrhosis with ascites and hepatic encephlaopathy. 5- Anemia. Discussed with IR, bilateral coil embolization of the facility maintenance technician space could be done to reinaldo at recurrent, intractable epistaxis. Patient confirmed that she used to have nasal bleeding but not any more. However, she can n ot remember the procedure. Plan: 1- The differential diagnosis and the necessary work up were discussed with the patient in detail. 2- We discussed the safety issues in detail including safe environment. The patient was ins tructed not to drive a vehicle or vessel of any kind, swim, bathe alone, boat, scuba, work o n heights, operate heavy machines or cook on open fire for six (6) months from any event of loss of consciousness, altered awareness or loss of body control. 3- Alcohol-related seizures, she declins starting AED at this time. She understands benefit s and risks. 4- Alcohol withdrawal, she is on CIWA protocol. 5- Correct electrolytes as need as this may contribute to her seizure disorder. 6- #3, #4, #5, and general care including GI and DVT prophylaxis, per primary team. Thank you for allowing us to participate in your patient care. Please call with questions. onversion Transacti on, Provider Unknown - 03/28/2013 8:03 AM PSTFormatting of this note might be different fro m the original. Progress Notes by Felecia George PT at 03/28/13 0803 Author: Felecia George PT Service: (none) Author Type: Physical Therapist Filed: 03/28/13 1156 Date of Service: 03/28/13 0803 Status: Signed Marble Coper: Felecia George PT (Physical Therapist) 03/28/13 0803 PT Last Visit PT Received On 03/28/13 Reason for Treatment (sepsis from ETOH withdrawal) Requires PT Follow Up PT tech Follow up PT Only? No PT Eval/Reassessment Date 03/28/13 Assistance Required 1 person Dry Drug Worker Needed No Requires PT Follow Up PT tech Precautions Other Precautions fall precautions Plan Treatment/Interventions Amb with mobility aide PT Frequency 5-7x/wk Care Duration (# of days) 7 # of days Home Environment Type of Home Home one story Home Exterior Layout Entry steps none Home Interior Layout Lives on main level with bedroom/bathroom Bathroom Shower/Tub Tub/shower unit Bathroom Toilet Standard Bathroom Equipment Grab bars in shower/bath Home Equipment None Additional Comments Pt reports 1-2 falls in last yr- pt reports this is due to her "knees c ollapsing." Recommendation Recommendations Continue acute care therapy;Return to prior living situation (ETOH rehab if feasible) Equipment Recommended Cane single point Recommendation Comments Pt reports she is open to ETOH rehab facility. Prior Function Level of [place] Independent with functional mobility;Independent with ADLs (does not drive) Lives With (aunt Joanne) Receives Help From Family ADL Assistance Independent Employment Unemployed Leisure (writing) RUE Assessment RUE Assessment WFL LUE Assessment LUE Assessment WFL RLE Assessment RLE Assessment WFL LLE Assessment LLE Assessment WFL Cognition Overall Cognitive Status ANDREW Orientation Level Oriented Comments lethargic; somewhat slurred speech Sensation Light Touch No apparent deficits Perception Inattention/Neglect Appears intact Initiation Appears intact Motor Planning Appears intact Perseveration Not present Proprioception Proprioception No apparent deficit Vision-Basic Assessment Current Vision No visual deficits Assessment of Patient Status Assessment of Patient Status Decreased endurance;Decreased level of alertness/ arousal Safety Devices Safety Devices in Place (call light in reach) 03/28/13 0803 PT Last Visit PT Received On 03/28/13 Reason for Treatment (sepsis from ETOH withdrawal) Requires PT Follow Up PT tech Follow up PT Only? No PT Eval/Reassessment Date 03/28/13 Assistance Required 1 person Dry Drug Worker Needed No Precautions Other Precautions fall precautions Other Comments Comments Chart reviewed, eval completed. Pt admitted for seizures related to ETOH withdrawa l; Hx of liver disease, HTN, anemia. Pt very lethargic initially but alertness improved with mobility; pt mod I for bed mobility, SBA for transfers and amb of 350 ft; mild unsteadiness noted during gait- this was slightly improved with use of SPC. Pt scored 22/28 on Tinetti i ndicating fall risk; pt open to attending ETOH rehab upon d/c. Cognition Overall Cognitive Status ANDREW Orientation Level Oriented Comments lethargic; somewhat slurred speech Bed Mobility Supine to Sit Modified independent Sit to Supine Modified independent Scooting Modified independent Transfers Sit to/from Stand Standby assist Bed to/from Chair Standby assist Mobility Weight Bearing Status WBAT RLE;WBAT LLE Ambulation Assistance Standby assist Maximal Ambulation Distance (feet) 350 Total Ambulation Distance (feet) 425 Distance limited by? Therapist/staff discretion Pattern Step to;Decreased brigitte;Narrow base (mild pathway deviations) Balance Balance (22/28 on Tinetti) Modalities Modalities Other therapy Other Therapy Ed on recommendations, use of SPC, safe mobility techniques, use of call ligh t. Activity Tolerance Activity Tolerance Patient tolerated treatment without report of fatigue Nurse Made Aware RN Janene Safety Devices Safety Devices in Place (call light in reach) Plan Treatment/Interventions Amb with mobility aide PT Frequency 5-7x/wk Care Duration (# of days) 7 # of days Recommendation Recommendations Continue acute care therapy;Return to prior living situation (ETOH rehab if feasible) Equipment Recommended Cane single point Requires PT Follow Up PT tech Recommendation Comments Pt reports she is open to ETOH rehab facility. onver miriam Transaction, Provider Unknown - 03/28/2013 3:25 AM PST Nurse Progress Note by Сергей Watson RN at 03/28/13324 Author: Сергей Watson RN Service: (none) Author Type: Registered Nurse Filed: 03/28/13 0333 Date of Service: 03/28/13324 Status: Signed Marble Coper: Сергей Watson RN (Registered Nurse) Pt A&O x2-3, VSS, pt c/o of pain and given IV morphine x3. Pt did not sleep much during sh ift. No acute changes from pm assessment, q2h checks performed, will continue to monitor. Сергей Watson RN 03/28/2013 3:33 AM onver miriam Transaction, Provider Unknown - 03/27/2013 3:57 PM PST Case Management by Alice Strong RN at 03/27/13 2340 Author: Alice Strong RN Service: (none) Author Type: Registered Nurse Filed: 03/27/13 1424 Date of Service: 03/27/13 9693 Status: Signed Marble Coper: Alice Strong RN (Registered Nurse) DCP- This worker rec a call from [facility] RN-ph . She d irects me to call the [facility] to explore alcohol rehab- called Behavioral Health at 1- [phone] and was directed to Tomas Bobo who referred me to [facility] , because pt is [place] Medicaid. Their # is - I called them and they transferr ed me to left a vm, req a callback. CM to follow. oPrecious guerrero MD - 03/27/2013 12:20 PM PSTFormatting of this note might be different from th e original. Progress Notes by Precious Miller MD at 03/27/13 1220 Author: Precious Miller MD Service: (none) Author Type: Physician Filed: 03/27/13 6595 Date of Service: 03/27/13 1220 Status: Signed Marble Coper: Precious Miller MD (Physician) 03/27/2013 Principal Problem: *Seizure disorder, secondary-it is possible that she has underlying seizure disorder as br other reported she may have had a seizure when she was not using alcohol. EEG has been orde red. *Discussed with Dr. Chandra. He clarified with the brother that patient has never had a seizure not related to alcohol. Active Problems: Alcohol withdrawal- she remains on CIWA. Her score had been as high as 14 yesterday. She appears improved this AM. Continues on withdrawal protocol. Thrombocytopenia, unspecified- platelets slightly lower, due to alcohol abuse Anemia-h/h down a little. No evidence of bleeding. Likely due to alcohol abuse. Hepatic encephalopathy-stable, on lactulose Seizure disorder-workup underway Sepsis(995.91)-on abx for uti UTI (lower urinary tract infection)-remains on abx. WBC normal Low grade temp. Alcohol dependence Hyposmolality and/or hyponatremia- Na level is lower. ?SIADH ?due to liver disease ?due to aldactone. Renal function normal. Cough- had CXR yesterday. ?bronchitis. On Rocephin. 1. Await EEG 2. Continue withdrawal protocol 3. Follow h/h and Na. Continue aldactone for now. 4. Continue lactulose for hepatic encephalopathy. 5. Continue rocephin for UTI/bronchitis 6. PT eval. 7. Possible d/c in 1 to 2 days depending on clinical picture. BP 149/86 | Pulse 102 | Temp 98.2 F (36.8 C) (Axillary) | Resp 20 | Ht 1.702 m (5' 7") | Wt 77.248 kg (170 lb 4.8 oz) | BMI 26.67 kg/m2 | SpO2 97% | ? No Intake/Output Summary (Last 24 hours) at 03/27/13 1220 Last data filed at 03/27/13 1122 Gross per 24 hour Intake 1650 ml Output 0 ml Net 1650 ml General: soft spoken, mild cough. Heent: has scab on lip, otherwise no trauma Neck: supple, Lungs: no wheeze or rales Cardiac: RRR at this time Abd: slightly distended, soft, NT Ext: no trauma Neuro: she is alert, appropriate in conversation Skin: no rash or wounds Psych: normal mood Lab 03/27/13 0449 03/26/13 0500 03/25/13 0440 WBC 7.2 11.4* 10.1 HGB 8.9* 10.5* 10.6* HCT 25.4* 31.0* 30.7* PLT 98* 118* 126* Lab 03/27/13 0449 03/26/13 0500 03/25/13 1606 03/25/13 0440 NA 128* 130* -- 128* K 4.1 4.3 4.2 -- CL 104 106 -- 106 CO2 20* 18* -- 17* BUN 8 6* -- 6* CREATININE 0.50 0.53 -- 0.41* LABGLOM -- -- -- -- GLUCOSE -- -- -- -- CALCIUM -- -- -- -- CXr Chest 2 View 03/27/2013 1. Central bronchial wall thickening again noted suggesting bronchitis. 2. Ce ntral interstitial prominence with thickening along the major and minor fissures. This may r eflect pulmonary edema or atypical pneumonitis. 3. No effusions or gross congestion. Elect ronically signed by Dave Tesfaye MD on 03/27/2013 8:15 AM CXR 03/25/2013 1. Question bronchitis. 2. No airspace infiltrates. 3. Previous reticular op acities in the left upper lobe are obscured today due to overlying EKG leads. PA and repeat lateral films are recommended. 4. Persistent mild cardiac enlargement. Electronically sign ed by Dave Tesfaye MD on 03/25/2013 10:[address] Head 03/26/2013 1. No acute intracranial hemorrhage. 2. 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 03/25/2013 1. Lobulated appearance of the liver secondary to underlying cirrhosis. Ascite s is probably related to liver failure. 2. Cholelithiasis without evidence of acute cholecy stitis. Overnight Events: she complains of a mildly sore throat. Less tremulousness. No vomit ing. Current Medications: cefTRIAXone 1 g Intravenous Q24H lactulose 20 g Oral TID multivitamin & minerals w iron/FA 1 tablet Oral Daily spironolactone 25 mg Oral BID thiamine 100 mg Oral Q24H [DISCONTINUED] ipratropium-albuterol 3 mL Nebulization Q6H Precious Miller 03/27/2013 12:20 PM onversion Transa ashvinion, Provider Unknown - 03/26/2013 10:19 PM PST Nurse Progress Note by Basilio Ferrara RN at 03/26/132218 Author: Basilio Ferrara RN Service: (none) Author Type: Registered Nurse Filed: 03/26/132219 Date of Service: 03/26/132218 Status: Signed Marble Coper: Basilio Ferrara RN (Registered Nurse) Went to check patient's IV and patient stated it was hurting. Area is red and swollen. This RN attempted to place an IV, as did 2 other RNs. Called down to ED to see if a nurse could come up and try to start an IV Celso Madsen MD - 03/26/2013 8:03 PM PST Progress Notes by Celso Goldberg MD at 03/26/132002 Author: Celso Goldberg MD Service: (none) Author Type: Physician Filed: 03/26/132014 Date of Service: 03/26/132002 Status: Signed Marble Coper: Celso Goldberg MD (Physician) [facility]: Hospitalist Progress Note Hospital Day: LOS: 3 days Post-Op Day: * No surgery found * SUBJECTIVE Patient Summary: Transferred from [facility] after seizures from alcohol with drawal and uti causing sepsis. Patient was mildly confused at the time of admission and didn 't remember what happened. Brother report 2 seizure , has a history of seizures in the past secondary to alcohol withdrawal. She has history of cirrhosis of liver due alcohol but she continues to drink. Subjective: Patient is shaky and appears anxious, complains of intermittent cough and headaches, no chest pain or abdominal pain. She had memory impairment as discussed with brot her at bedside. Her brother said she had seizure episode before while she was sober from [facility] but never been treated for seizure, Scheduled Medications cefTRIAXone 1 g Intravenous Q24H lactulose 20 g Oral TID multivitamin & minerals w iron/FA 1 tablet Oral Daily spironolactone 25 mg Oral BID thiamine 100 mg Oral Q24H [DISCONTINUED] ipratropium-albuterol 3 mL Nebulization Q6H Continuous Infusions PRN Medications aluminum-magnesium hydroxide-simethicone, cloNIDine, diazepam, diazepam, diazepam, ipratrop ium-albuterol, LORazepam, LORazepam, LORazepam, magnesium sulfate, magnesium sulfate, magnes ium sulfate, morphine, morphine, morphine, ondansetron, ondansetron, phosphorus, polyethylen e glycol, potassium chloride, potassium chloride, potassium chloride, sodium glycerophosphat e IVPB 15 mMol, sodium glycerophosphate IVPB 30 mMol, zolpidem OBJECTIVE Vital Signs: BP 115/61 | Pulse 121 | Temp 98.3 F (36.8 C) (Oral) | Resp 18 | Ht 1.702 m (5' 7") | Wt 74.39 kg (164 lb) | BMI 25.68 kg/m2 | SpO2 97% | ? No Temp: [98.3 F (36.8 C)-100.9 F (38.3 C)] 98.3 F (36.8 C) (03/26 160) BP: (112-123)/(56-73) 115/61 mmHg (03/26 160) Heart Rate: [114-141] 121 (03/26 160) Resp: [16-18] 18 (03/26 160) SpO2: [92 %-97 %] 97 % (03/26 160) Physical Exam Constitutional: No distress. Lethargic but awake. HENT: Head: Normocephalic. Small hematoma and aphthous ulcer over right lower lip Eyes: EOM are normal. Pupils are equal, round, and reactive to light. Neck: No JVD present. Cardiovascular: Normal rate, regular rhythm, normal heart sounds and intact distal pulses. Exam reveals no gallop and no friction rub. No murmur heard. Pulmonary/Chest: Effort normal. She has wheezes. She has no rales. She exhibits no tenderne ss. Diminished air entry bilaterally. Scattered rhonchi all over chest Abdominal: Soft. She exhibits distension. She exhibits no mass. There is no tenderness. The re is no rebound and no guarding. Mild ascites Neurological: She displays normal reflexes. No cranial nerve deficit. She exhibits normal m uscle tone. Coordination normal. Lethargic, oriented to self but not to place and person. However responds appropriatel y to questions. Skin: No rash noted. She is not diaphoretic. No erythema. No pallor. Psychiatric: Judgment normal. Flat affect DATA CBC: Lab Results Component Value Date WBC 11.4* 03/26/2013 RBC 3.13* 03/26/2013 HGB 10.5* 03/26/2013 HCT 31.0* 03/26/2013 MCV 98.9 03/26/2013 MCH 33.6 03/26/2013 MCHC 34.0 03/26/2013 RDW 53.8* 03/26/2013 PLT 118* 03/26/2013 MPV 9.5 03/26/2013 DIFFTYPE MANUAL 03/26/2013 CMP: Lab Results Component Value Date NA 130* 03/26/2013 K 4.3 03/26/2013 CL 106 03/26/2013 CO2 18* 03/26/2013 ANIONGAP 10 03/26/2013 GLUF 103* 03/26/2013 BUN 6* 03/26/2013 CREATININE 0.53 03/26/2013 BCR 11 03/26/2013 CA 7.3* 03/26/2013 PROT 6.5 03/26/2013 ALB 1.9* 03/26/2013 GLOB 4.6 03/26/2013 BILITOT 1.4 03/26/2013 ALP 118* 03/26/2013 AST 49* 03/26/2013 ALT 14 03/26/2013 EGFR >60 03/26/2013 PT/INR: Lab Results Component Value Date INR 1.4 03/23/2013 Ammonia: 03/23/2013. 42 PROBLEM LIST Principal Problem: *Seizure disorder, secondary Active Problems: Thrombocytopenia, unspecified Anemia Hepatic encephalopathy Seizure disorder Sepsis(995.91) UTI (lower urinary tract infection) ASSESSMENT & PLAN 1- Seizure episodes x2 prior to admission, possible secondary to alcohol withdrowal, there is possible seizure disorder as per patient's brother, Dr. Pitts from Neurology was called, CT head was obtained and EEG, she may need to start Keppra . 2. Alcoholism. On CIWA protocol. she required Valium. Will continue to follow CIWA protocol . She will be discharged to rehabilitation for treatment. 3. Pneumonia. Initial Chest xray showed left UL infiltrate. Repeat chest xray does not show pneumonia. will continue Rocephin for now and Duoneb treatment, repeat CXR tomorrow. 4. Alcoholic cirrhosis of liver with likely portal hypertension. 5. Thrombocytopenia, Mild and improving. Will monitor. 6. Anemia Stable H and H. 7.Hepatic encephalopathy ammonia level is normal, on lactulose. 8. Sepsis, Due to UTI and pneumonia. Continue Rocephin. Await urine culture. 9. Hyponatremia. Is improving, Likely due to cirrohosis of liver. Will restrct fluid intake . Discontinue IVFs. 10. Depression. She will need Psych consult once medically stable. 11. DVT prophylaxis. No chemical VTE prophylaxis as patient has thrombocytopenia and INR in high at 1.4. Will encourage early ambulation. Disposition: Likely discharge In around 2 days, when she is more stable. Code Status: Full Code Celso Goldberg MD 03/26/2013 onversion Transac tion, Provider Unknown - 03/26/2013 4:49 PM PSTFormatting of this note might be different f rom the original. Case Management by Alice Strong RN at 03/26/13 1739 Author: Alice Strong RN Service: (none) Author Type: Registered Nurse Filed: 03/27/1317 Date of Service: 03/26/131648 Status: Addendum Marble Coper: Alice Strong RN (Registered Nurse) Related Notes: Original Note by Alice Strong RN (Registered Nurse) filed at 03/26/13 165 5 DCP- Reviewed record and see pt continues w a temp to 100.1 and hr up to 140's noted today. Revi ewed w Dr Valdez- she anticipates pt could possibly be ready for discharge Sunday. Provi ded pt w alcohol rehab resources- she reports she has family that can provide her w transpor tation. Pt has a [facility] RN- Liset Virk, who comes to the hospital and review w Dr Dixie Celestin and myself- the [facility]-will look for associated ETOH programs and check her benefits and will facilitate a transfer to ETOH rehab when the pt is medicall y stable. Liset's number is CM will cont to follow. onver miriam Rooneyaction, Provider Unknown - 03/26/2013 6:06 AM PST Progress Notes by Basilio Ferrara RN at 03/26/13605 Author: Basilio Ferrara RN Service: (none) Author Type: Registered Nurse Filed: 03/26/13606 Date of Service: 03/26/13605 Status: Signed Marble Coper: Basilio Ferrara RN (Registered Nurse) Patient resting in bed, given valium per CIWA protocol. CIWA done every hour, patient rated as high as 14. Patient was given lactulose and had several incont episodes of stool. Patien t denies pain when asked. Max temp 100, blankets taken off. Will continue to monitor. onver miriam Transaction, Provider Unknown - 03/25/2013 6:26 PM PST Progress Notes by Efra Roca RN at 03/25/131825 Author: Efra Roca RN Service: (none) Author Type: Registered Nurse Filed: 03/25/131826 Date of Service: 03/25/131825 Status: Signed Marble Coper: Efra Roca RN (Registered Nurse) Pt started the shift off very confused and agitated. However, as the day progressed, she b ecame more aware of her surroundings and where she was at. Lactulose has been ordered to he lp bring down her ammonia levels. Dr. Miguel is hoping to d/c this pt tomorrow. Erfa matamoros 6:27 PM 03/25/2013 ilber Gomes i, MD - 03/25/2013 3:04 PM PST Progress Notes by Wilber Santana MD at 03/25/13 1504 Author: Wilber Santana MD Service: Hospitalist Author Type: Physician Filed: 03/25/13 1522 Date of Service: 03/25/13 150 Status: Signed Marble Coper: Wilber Santana MD (Physician) [facility]: Hospitalist Progress Note Hospital Day: LOS: 2 days Post-Op Day: * No surgery found * SUBJECTIVE Patient Summary: Transferred from [facility] after seizures from alcohol with drawal and uti causing sepsis. Patient was mildly confused at the time of admission and didn 't remember what happened. Brother report 2 seizure , has a history of seizures in the past secondary to alcohol withdrawal. She has history of cirrhosis of liver due alcohol but she continues to drink. Events Overnight: Patient became very agitated last night with high CIWA score and re quired IV Valium. She was better this morning but again became confused and just received Va lium. Right now patient is lethargic but responds appropriately to question. She knows her n adolfo but does not remember the name of this hospital. She thinks [facility] is and date i s . She does not know the name of current month or year. Patient has some SOB. She compl ains of dry cough but denies any chest pain. Appetite is very poor but she does not have any nausea or vomiting. Scheduled Medications cefTRIAXone 1 g Intravenous Q24H ipratropium-albuterol 3 mL Nebulization Q6H lactulose 20 g Oral TID multivitamin & minerals w iron/FA 1 tablet Oral Daily thiamine 100 mg Oral Q24H [DISCONTINUED] enoxaparin 40 mg Subcutaneous Q24H [DISCONTINUED] folic acid (FOLVITE) IVPB 1 mg Intravenous Daily [DISCONTINUED] thiamine (VITAMIN B1) IVPB 100 mg Intravenous Q24H Continuous Infusions 0.9 % NaCl with KCl 20 mEq 50 mL/hr at 03/25/13 0559 PRN Medications aluminum-magnesium hydroxide-simethicone, cloNIDine, diazepam, diazepam, diazepam, LORazepa m, LORazepam, LORazepam, magnesium sulfate, magnesium sulfate, magnesium sulfate, morphine, morphine, morphine, ondansetron, ondansetron, phosphorus, polyethylene glycol, potassium chl oride, potassium chloride, potassium chloride, sodium glycerophosphate IVPB 15 mMol, sodium glycerophosphate IVPB 30 mMol, zolpidem, [DISCONTINUED] acetaminophen [DISCONTINUED] acetaminophen OBJECTIVE Vital Signs: BP 117/57 | Pulse 129 | Temp 99.7 F (37.6 C) (Oral) | Resp 18 | Ht 1.702 m (5' 7") | Wt 74.39 kg (164 lb) | BMI 25.68 kg/m2 | SpO2 97% | ? No Temp: [99.3 F (37.4 C)-100.4 F (38 C)] 99.7 F (37.6 C) (03/25 731) BP: (117-146)/(57-90) 117/57 mmHg (03/25 1200) Heart Rate: [124-132] 129 (03/25 0746) Resp: [18-19] 18 (03/25 731) SpO2: [94 %-99 %] 97 % (03/25 731) Weight: [74.39 kg (164 lb)] 74.39 kg (164 lb) (03/25 0329) Physical Exam Constitutional: No distress. Lethargic but awake. HENT: Head: Normocephalic. Small hematoma and aphthous ulcer over right lower lip Eyes: EOM are normal. Pupils are equal, round, and reactive to light. Neck: No JVD present. Cardiovascular: Normal rate, regular rhythm, normal heart sounds and intact distal pulses. Exam reveals no gallop and no friction rub. No murmur heard. Pulmonary/Chest: Effort normal. She has wheezes. She has no rales. She exhibits no tenderne ss. Diminished air entry bilaterally. Scattered rhonchi all over chest Abdominal: Soft. She exhibits distension. She exhibits no mass. There is no tenderness. The re is no rebound and no guarding. Mild ascites Neurological: She displays normal reflexes. No cranial nerve deficit. She exhibits normal m uscle tone. Coordination normal. Lethargic, oriented to self but not to place and person. However responds appropriatel y to questions. Skin: No rash noted. She is not diaphoretic. No erythema. No pallor. Psychiatric: Judgment normal. Flat affect DATA CBC: Lab Results Component Value Date WBC 10.1 03/25/2013 RBC 3.13* 03/25/2013 HGB 10.6* 03/25/2013 HCT 30.7* 03/25/2013 MCV 97.8 03/25/2013 MCH 33.9 03/25/2013 MCHC 34.7 03/25/2013 RDW 52.1 03/25/2013 PLT 126* 03/25/2013 MPV 9.2 03/25/2013 DIFFTYPE AUTOMATED 03/25/2013 CMP: Lab Results Component Value Date NA 128* 03/25/2013 K 3.9 03/25/2013 CL 106 03/25/2013 CO2 17* 03/25/2013 ANIONGAP 9 03/25/2013 GLUF 100* 03/25/2013 BUN 6* 03/25/2013 CREATININE 0.41* 03/25/2013 BCR 15 03/25/2013 CA 6.9* 03/25/2013 PROT 6.4 03/25/2013 ALB 1.9* 03/25/2013 GLOB 4.5 03/25/2013 BILITOT 1.2 03/25/2013 ALP 117* 03/25/2013 AST 50* 03/25/2013 ALT 13 03/25/2013 EGFR >60 03/25/2013 PT/INR: Lab Results Component Value Date INR 1.4 03/23/2013 Ammonia: 03/23/2013. 42 PROBLEM LIST Principal Problem: *Seizure disorder, secondary Active Problems: Seizure disorder Thrombocytopenia, unspecified Anemia Hepatic encephalopathy Sepsis(995.91) UTI (lower urinary tract infection) ASSESSMENT & PLAN Patient Active Hospital Problem List: Seizure Activity, breakthrough. Due to alcoholism. Patient seizure free for last 1 1/2 day s. However she is still drowsy. Will continue to monitor. Seizure disorder (03/23/2013) related to alcohol. No indication for anti seizure medication s. Alcoholism. On CIWA protocol. Patient exhibited signs of alcohol withdrawal last night and then today and has required Valium. Will continue to follow CIWA protocol. Pneumonia. Initial Chest xray showed left UL infiltrate. Repeat chest xray does not show pn eumonia. However patient may have COPD exacerbation and will continue Rocephin and start pat ient on Duoneb treatment for bronchospasm. Alcoholic cirrhosis of liver with likely portal hypertension. Check US of abdomen. Thrombocytopenia, unspecified (07/29/2011). Due to cirrhosis of liver and likely portal hype rtension. Mild and improving. Will monitor. Anemia (07/29/2011). Stable H and H. Hepatic encephalopathy (07/31/2011). Check ammonia level. Start lactulose. Sepsis(995.91) (03/23/2013). Due to UTI and pneumonia. Continue Rocephin. Await urine cultu re. UTI (lower urinary tract infection) (03/23/2013). Plan as above. Multiple electrolyte abnormalities including severe hypomagnesemia, hypokalemia. Resolved. Hyponatremia. Likely due to cirrohosis of liver. Will restrct fluid intake. Discontinue cur rent IVFs. Hypocalcemia. However corrected calcium with albumin is 8.6 toady. Depression. Psych consult once medically stable. DVT prophylaxis. No chemical VTE prophylaxis as patient has thrombocytopenia and INR in hig h at 1.4. Will encourage early ambulation. Disposition: Likely discharge when patient stable. Code Status: Full Code Wilber Santana MD 03/25/2013 onversion Tra nsaction, Provider Unknown - 03/25/2013 1:45 PM PSTFormatting of this note might be differe nt from the original. Case Management by Alice Strong RN at 03/25/13 1345 Author: Alice Strong RN Service: (none) Author Type: Registered Nurse Filed: 03/25/13 1346 Date of Service: 03/25/13 1345 Status: Signed Marble Coper: Alice Strong RN (Registered Nurse) DCP- Reviewed w primary nurse- pt will need resources for ETOH rehab, not appropriate clinically today. CM will cont to follow. onver miriam Transaction, Provider Unknown - 03/25/2013 11:53 AM PST Progress Notes by Savannah Clarke RN at 03/25/13 115 Author: Savannah Clarke RN Service: (none) Author Type: Registered Nurse Filed: 03/25/13 115 Date of Service: 03/25/13 115 Status: Signed Marble Coper: Savannah Clarke RN (Registered Nurse) Notified Lead RN patient's PIV is due to be changed today per policy. Instructed Lead RN t o have Primary RN call PICC RN if USGPIV is needed Thank you. Wilber Montes i, MD - 03/24/2013 3:48 PM PST Progress Notes by Wilber Santana MD at 03/24/13 5751 Author: Wilber Santana MD Service: (none) Author Type: Physician Filed: 03/24/13 1612 Date of Service: 03/24/13 1548 Status: Signed Marble Coper: Wilber Santana MD (Physician) [facility]: Hospitalist Progress Note Hospital Day: LOS: 1 day Post-Op Day: * No surgery found * SUBJECTIVE Patient Summary: Transferred from [facility] after seizures from alcohol with drawal and uti causing sepsis. Patient was mildly confused at the time of admission and didn 't remember what happened. Brother report 2 seizure , has a history of seizures in the past secondary to alcohol withdrawal. She has history of cirrhosis of liver due alcohol but she continues to drink. Events Overnight: She is alert and oriented but appears very depressed. Patient compl ains of cough but is not able to bring up any phlegm. She also complains mild SOB. No abdomi nal pain or nausea or vomiting. No seizure activity since admission and post ictal confusion is resolved. Scheduled Medications cefTRIAXone 1 g Intravenous Q24H [COMPLETED] magnesium sulfate 2 g Intravenous Once [COMPLETED] pneumococcal 23-valent vaccine 0.5 mL Intramuscular Once Immunization multivitamin & minerals w iron/FA 1 tablet Oral Daily thiamine 100 mg Oral Q24H [DISCONTINUED] enoxaparin 40 mg Subcutaneous Q24H [DISCONTINUED] folic acid (FOLVITE) IVPB 1 mg Intravenous Daily [DISCONTINUED] thiamine (VITAMIN B1) IVPB 100 mg Intravenous Q24H Continuous Infusions 0.9 % NaCl with KCl 20 mEq 110 mL/hr at 03/24/13 0544 PRN Medications aluminum-magnesium hydroxide-simethicone, cloNIDine, diazepam, diazepam, diazepam, LORazepa m, LORazepam, LORazepam, magnesium sulfate, magnesium sulfate, magnesium sulfate, morphine, morphine, morphine, ondansetron, ondansetron, phosphorus, polyethylene glycol, potassium chl oride, potassium chloride, potassium chloride, sodium glycerophosphate IVPB 15 mMol, sodium glycerophosphate IVPB 30 mMol, zolpidem, [DISCONTINUED] acetaminophen [DISCONTINUED] acetaminophen OBJECTIVE Vital Signs: BP 133/81 | Pulse 122 | Temp 98.3 F (36.8 C) (Oral) | Resp 18 | Ht 1.702 m (5' 7") | Wt 70.035 kg (154 lb 6.4 oz) | BMI 24.18 kg/m2 | SpO2 98% | ? No Temp: [98.3 F (36.8 C)-100.2 F (37.9 C)] 98.3 F (36.8 C) (03/24 1453) BP: (128-155)/(66-107) 133/81 mmHg (03/24 1453) Heart Rate: [106-133] 122 (03/24 1453) Resp: [16-24] 18 (03/24 1453) SpO2: [96 %-99 %] 98 % (03/24 1453) Height: [170.2 cm (5' 7")] 170.2 cm (5' 7") (03/23 2003) Weight: [70.035 kg (154 lb 6.4 oz)] 70.035 kg (154 lb 6.4 oz) (03/23 2003) BMI (Calculated): [24.2] 24.2 (03/23 2003) Physical Exam Constitutional: She is oriented to person, place, and time. No distress. HENT: Head: Normocephalic. Small hematoma and aphthous ulcer over right lower lip Eyes: EOM are normal. Pupils are equal, round, and reactive to light. Neck: No JVD present. Cardiovascular: Intact distal pulses. Exam reveals no gallop and no friction rub. No murmur heard. Pulmonary/Chest: Effort normal. She has no rales. She exhibits no tenderness. Diminished air entry bilaterally. Scattered rhonchi all over chest Abdominal: Soft. She exhibits distension. She exhibits no mass. There is no tenderness. The re is no rebound and no guarding. Moderate ascites Neurological: She is alert and oriented to person, place, and time. She displays normal ref lexes. No cranial nerve deficit. She exhibits normal muscle tone. Coordination normal. Skin: No rash noted. She is not diaphoretic. No erythema. No pallor. Psychiatric: Judgment normal. Flat affect DATA CBC: Lab Results Component Value Date WBC 8.9 03/24/2013 RBC 2.99* 03/24/2013 HGB 10.2* 03/24/2013 HCT 29.3* 03/24/2013 MCV 98.1 03/24/2013 MCH 33.9 03/24/2013 MCHC 34.6 03/24/2013 RDW 50.8 03/24/2013 PLT 106* 03/24/2013 MPV 9.5 03/24/2013 DIFFTYPE AUTOMATED 03/24/2013 CMP: Lab Results Component Value Date NA 133* 03/24/2013 K 3.7 03/24/2013 CL 107 03/24/2013 CO2 19* 03/24/2013 ANIONGAP 11 03/24/2013 GLUF 88 03/24/2013 BUN 4* 03/24/2013 CREATININE 0.49* 03/24/2013 BCR 8 03/24/2013 CA 6.6* 03/24/2013 PROT 6.2* 03/24/2013 ALB 1.8* 03/24/2013 GLOB 4.4 03/24/2013 BILITOT 1.2 03/24/2013 ALP 111 03/24/2013 AST 56* 03/24/2013 ALT 14 03/24/2013 EGFR >60 03/24/2013 PT/INR: Lab Results Component Value Date INR 1.4 03/23/2013 Ammonia: 03/23/2013. 42 PROBLEM LIST Principal Problem: *Seizure disorder, secondary Active Problems: Seizure disorder Thrombocytopenia, unspecified Anemia Hepatic encephalopathy Sepsis(995.91) UTI (lower urinary tract infection) ASSESSMENT & PLAN Patient Active Hospital Problem List: Seizure Activity, breakthrough. Due to alcoholism. Patient seizure free for last 1 1/2 day s. Will continue to monitor. Seizure disorder (03/23/2013) related to alcohol. No indication for anti seizure medication s. Alcoholism. On CITN protocol. No sign of alcohol withdrawal. Pneumonia. Chest xray shows left UL infiltrate. Will continue Rocephin. Repeat chest xray t omorrow. Alcoholic cirrhosis of liver with likely portal hypertension. Check US of abdomen. Thrombocytopenia, unspecified (07/29/2011). Due to cirrhosis of liver and likely portal hype rtension. Mild. Will monitor. Anemia (07/29/2011). Stable H and H. Hepatic encephalopathy (07/31/2011). Mild and resolved clinically. Sepsis(995.91) (03/23/2013). Due to UTI and pneumonia. Continue Rocephin. Await urine cultu re. UTI (lower urinary tract infection) (03/23/2013). Plan as above. Multiple electrolyte abnormalities including severe hypomagnesemia, hypokalemia. Will suppl ement. Hypocalcemia. However corrected calcium with albumin is 8.2. DVT prophylaxis. No chemical VTE prophylaxis as patient has thrombocytopenia and INR in hig h at 1.4. Will encourage early ambulation. Disposition: Likely discharge home in 1-2 days. Code Status: Full Code Wilber Santana MD 03/24/2013 onversion Tra nsaction, Provider Unknown - 03/24/2013 6:42 AM PSTFormatting of this note might be differe nt from the original. Progress Notes by Lynda Gutiérrez RN at 03/24/13 2706 Author: Lynda Gutiérrez RN Service: (none) Author Type: Registered Nurse Filed: 03/24/13 2281 Date of Service: 03/24/13 0642 Status: Addendum Marble Coper: Lynda Gutiérrez RN (Registered Nurse) Related Notes: Original Note by Lynda Gutiérrez RN (Registered Nurse) filed at 03/24/13 0644 Pt resting in bed. Appears to be comfortable. Pt on CIWA q4h. tmax 100.1F oral, HR 120-130' s, c/o frequent harsh, dry, non-productive cough. Dr. Raines notified. Ativan given x1, Mo rphine x1, Tylenol x1. WCTM. onver miriam Transaction, Provider Unknown - 03/23/2013 7:40 PM PST Nurse Progress Note by Alcira Epstein RN at 03/23/131939 Author: Alcira Epstein RN Service: (none) Author Type: Registered Nurse Filed: 03/23/131940 Date of Service: 03/23/131939 Status: Signed Marble Coper: Alcira Epstein RN (Registered Nurse) Report given to 3OP RN, pt transferred with all of belongings. Wilber Montes i, MD - 03/23/2013 3:32 PM PST Progress Notes by Wilber Santana MD at 03/23/131531 Author: Wilber Santana MD Service: Hospitalist Author Type: Physician Filed: 03/23/13 153 Date of Service: 03/23/131531 Status: Signed Marble Coper: Wilber Santana MD (Physician) Patient seen and examined. She is alert and oriented times three now. Patient admits to carly bacaing 6 cans of beer every day. She also has some cough. No seizure activity since admission . She has bruised lip that she states is due to lip bite during seizure activity. BP 150/67 | Pulse 108 | Temp 99.9 F (37.7 C) (Oral) | Resp 20 | Ht 1.6 m (5' 3") | SpO2 96% | ? No Bruise over lower lip. CHEST: CTA CVA: RRR. ABDOMEN: distended. Mild ascites. No tenderness. Results Procedure Component Value Units Date/Time TSH [[id number]] (Abnormal) Collected:03/23/13 1010 Specimen Information:Blood Updated:03/23/13 1309 TSH 6.48 (H) uIU/mL Ammonia [[id number]] (Abnormal) Collected:03/23/13 1010 Specimen Information:Blood Updated:03/23/13 1102 AMMONIA 42 (H) umol/L Protime-INR [[id number]] Collected:03/23/13 1010 Specimen Information:Blood Updated:03/23/13 1052 INR 1.4 Influenza Swab [[id number]] Collected:03/23/13617 Specimen Information:Nasopharyngeal / Nasopharyngeal Culture Updated:03/23/13640 Specimen Description NASOPHARYNGEAL RESULT Result: Negative for Influenzae Type A and Type B antigen by ICA RESULT Result: Testing performed at [facility];[address] [place] [address];[place] [address] REPORT STATUS 03/23/2013 FINAL Comprehensive metabolic panel [[id number]] (Abnormal) Collected:03/23/13609 Specimen Information:Blood Updated:03/23/13639 SODIUM 138 mmol/L POTASSIUM 3.3 (L) mmol/L CHLORIDE 108 mmol/L CO2 20 (L) mmol/L ANION GAP AGAP 13 mmol/L GLUCOSE 98 mg/dL BUN 3 (L) mg/dL CREATININE 0.60 mg/dL BUN/CREAT 5 CALCIUM 6.4 (L) mg/dL TOTAL PROTEIN 6.6 g/dL Albumin 1.4 (L) g/dL GLOBULIN 5.2 (H) g/dL A/G 0.3 (L) TBIL 1.3 mg/dL ALK PHOS 154 (H) U/L AST 64 (H) U/L ALT 19 U/L EGFR >60 mL/min/1.73m2 Ethanol Level [[id number]] Collected:03/23/13609 Specimen Information:Blood Updated:03/23/13639 ALCOHOL,ETHYL <3 mg/dL CBC w Auto Diff [[id number]] (Abnormal) Collected:03/23/13609 Specimen Information:Blood Updated:03/23/13619 WBC 8.8 K/uL RBC 2.89 (L) M/uL HGB 9.4 (L) g/dL HCT 28.4 (L) % MCV 98.2 fl MCH 32.4 pg MCHC 33.0 g/dL RDW SD 52.1 fl PLT 101 (L) K/uL MPV 8.3 fl DIFF TYPE AUTOMATED NEUTROPHILS 77.6 % LYMPHOCYTES 10.1 % MONOCYTES 11.9 % EOSINOPHILS 0.1 % BASOPHILS 0.3 % NEUTROPHILS ABS 6.8 K/uL LYMPHOCYTES ABS 0.9 (L) K/uL MONOCYTES ABS 1.0 (H) K/uL EOSINOPHILS ABS 0.0 K/uL BASOPHILS ABS 0.0 K/uL ASSESSMENT: 1. Seizure activity. Due to alcoholism. 2. Alcoholism. 3. Alcoholic cirrhosis of liver. 4. UTI. Continue current plan of care. Likely discharge tomorrow. onversion Tra nsaction, Provider Unknown - 03/23/2013 10:43 AM PSTFormatting of this note might be differe nt from the original. Nurse Progress Note by Alcira Epstein RN at 03/23/13 104 Author: Alcira Epstein RN Service: (none) Author Type: Registered Nurse Filed: 03/23/135 Date of Service: 03/23/131042 Status: Signed Marble Coper: Alcira Epstein RN (Registered Nurse) Pt awake and asked for me to contact her family- specifically Aunt Joanne or brother Casandra matamoros, and let them know where she was. I was able to make contact with Meño and gave him the number to the CDU. onver miriam Transaction, Provider Unknown - 03/23/2013 8:48 AM PST Nurse Progress Note by Alcira Epstein RN at 03/23/13 0848 Author: Alcira Epstein RN Service: (none) Author Type: Registered Nurse Filed: 03/23/13 0850 Date of Service: 03/23/13847 Status: Signed Marble Coper: Alcira Epstein RN (Registered Nurse) Pt awake, states she feels "lost", appears anxious and somewhat agitated. Denies headache or nausea, oriented to self only, 11 on CIWA. onver miriam Transaction, Provider Unknown - 03/23/2013 7:30 AM PST Nurse Progress Note by Cristy Pereira RN at 03/23/13729 Author: Cristy Pereira RN Service: (none) Author Type: Registered Nurse Filed: 03/23/13822 Date of Service: 03/23/13729 Status: Signed Marble Coper: Cristy Pereira RN (Registered Nurse) Pt in bed, eyes closed, sedated, but responsive to voice. Pt has two patent IVs; IVF and Th iamine IVPB infusing. Seizure precautions in place, bed low and locked, bed alarm armed. Aut o vital signs and CIWA assessment to be performed hourly. Cristy Pereira RN onver miriam Transaction, Provider Unknown - 03/23/2013 6:44 AM PST Progress Notes by Taryn Sauer RPH at 03/23/13643 Author: Taryn Sauer RPH Service: (none) Author Type: Pharmacist Filed: 03/23/13643 Date of Service: 03/23/13643 Status: Signed Marble Coper: Taryn Sauer RPH (Pharmacist) Clinical Pharmacy Note: Renal Monitoring Shaila Huy 42 y.o. female Ht Readings from Last 1 Encounters: 07/29/11 1.702 m (5' 7") Wt Readings from Last 1 Encounters: 07/29/11 60.782 kg (134 lb) CREATININE Date Value Range Status 03/23/2013 0.60 0.50 - 1.00 mg/dL Final Testing performed at [facility];[address] [place] [address];[place] [address] Patient's GFR is > 60 ml/min Pharmacy dosing for renal function per Dr. Dumont. Currently, there are no medications needing to be adjusted. Pharmacy will continue to monit or for changes in medication orders and in renal function and adjust accordingly. Taryn GarcíaPh 03/23/2013 6:43 AM docume nted in this encounter H&P Notes Alyce Dumont MD - 03/23/2013 6:30 AM PSTFormatting of this note might be dif ferent from the original. H&P by Alyce Dumont MD at 03/23/13629 Author: Alyce Dumont MD Service: (none) Author Type: Physician Filed: 03/23/1339 Date of Service: 03/23/13629 Status: Signed Marble Coper: Alyce Dumont MD (Physician) [facility] Service: Hospitalist Admission History & Physical Date of Admission: 03/23/2013 Requesting Physician: Antoinettei , Emergency Department Reason for Admission: Seizures and Sepsis History Obtained From: patient CHIEF COMPLAINT: seizures HISTORY OF PRESENT ILLNESS The patient is a 42 y.o. female with significant past medical history. Transferred from [facility] after seizures from alcohol withdrawal and uti causing sepsis. Patient mildly confused and poor historian but oriented to time an place, don't remember wh at happen. Brother report 2 seizure tonight, has a history of seizures in past secondary to alcohol wi thdrawal. Her labs are pending for CM, she had a chronic anemia, no evidence of GIB now. No chest pain,vomiting or urinary symptoms but positive UA in [facility]. Still tachycardia but no seizure activities. Last ETOH 1.5 day ago. REVIEW OF SYSTEMS Negative except for pertinent items noted in HPI. Past Medical History Diagnosis Date Hemorrhage of gastrointestinal tract, unspecified Liver disease Hypertension Anemia Past Surgical History Procedure Date Esophagogastroduodenoscopy 07/30/2011 Procedure: ESOPHAGOGASTRODUODENOSCOPY; Surgeon: Mitchell Stewart IV, MD; Location: [facility]; Service: Gastroenterology; Laterality: N/A; anesthesia assist if available since may be difficult to sedate Hx of tracheostomy Immunizations: Influenza: Ordered Pneumoccocal: Not indicated Allergies Allergen Reactions Ciprofloxacin Other (See Comments) Pt. Unable to recall, this information came from [facility] record Ibuprofen Other (See Comments) Pt. Unable to recall, this information came from [facility] record (Not in a hospital admission) [...] Drug Use: Yes Special: Marijuana Sexually Active: Other Topics Concern Not on file Social History Narrative No narrative on file PHYSICAL EXAM Vital Signs: BP 140/86 | Pulse 123 | Temp 101.2 F (38.4 C) (Oral) | Resp 18 | SpO2 98% | Breastfeedi ng? No General Appearance: Postictal mild confusion. Head: Normocephalic, without obvious abnormality, atraumatic Eyes: PERRL, conjunctiva/corneas clear, EOM's intact, fundi benign, both eyes Ears: Normal TM's and external ear canals, both ears Nose: Nares normal, septum midline, mucosa normal, no drainage or sinus tenderness Throat: Lips, mucosa, and tongue normal; teeth and gums normal Neck: Supple, symmetrical, trachea midline, no adenopathy; thyroid: No enlargement/tenderness/nodules; no carotid bruit or JVD Back: Symmetric, no curvature, ROM normal, no CVA tenderness Lungs: Clear to auscultation bilaterally, respirations unlabored Chest wall: No tenderness or deformity Heart: Regular rate and rhythm, S1 and S2 normal, no murmur, rub or gallop Abdomen: Significant ascites. Extremities: Extremities normal, atraumatic, no cyanosis or edema Pulses: 2+ and symmetric all extremities Skin: Skin color, texture, turgor normal, no rashes or lesions Lymph nodes: Cervical, supraclavicular, and axillary nodes normal Neurologic: CNII-XII intact. Normal strength, sensation and reflexes throughout DATA CBC: Lab Results Component Value Date WBC 8.8 03/23/2013 RBC 2.89* 03/23/2013 HGB 9.4* 03/23/2013 HCT 28.4* 03/23/2013 MCV 98.2 03/23/2013 MCH 32.4 03/23/2013 MCHC 33.0 03/23/2013 RDW 52.1 03/23/2013 PLT 101* 03/23/2013 MPV 8.3 03/23/2013 DIFFTYPE AUTOMATED 03/23/2013 CMP: Lab Results Component Value Date NA 137 07/30/2011 K 3.5 07/30/2011 CL 108 07/30/2011 CO2 22* 07/30/2011 ANIONGAP 11 07/30/2011 GLUF 124* 07/30/2011 BUN 6* 07/30/2011 CREATININE 0.8 07/30/2011 BCR 8 07/30/2011 CA 7.3* 07/30/2011 PROT 6.6 07/30/2011 ALB 2.1* 07/30/2011 GLOB 4.4 07/30/2011 BILITOT 1.2 07/30/2011 ALP 82 07/30/2011 AST 40 07/30/2011 ALT 21 07/30/2011 EGFR >60 07/30/2011 PT/INR: Lab Results Component Value Date INR 1.4 07/28/2011 PROBLEM LIST Principal Problem: *Sepsis(995.91) Active Problems: Thrombocytopenia, unspecified Anemia Hepatic encephalopathy Seizure disorder UTI (lower urinary tract infection) ASSESSMENT & PLAN 1-Seizure from ETOH withdrawal,Ativan iv prn and IVF, CIWA protocol. 2-Sepsis secondary to UTI, Rocephin and IVF. 3-Liver cirrhosis and ascites, pending labs, CMP,INR,Ammonia, Need Follow up. 4-lip laceration from SZ. 5-Anemia from liver disease but no GIB will monitor H and start protonix po. Disposition: Admit to medical floor. Code Status: Full Code. Primary Care Physician: BRANDI DUMONT MD 03/23/2013 documente d in this encounter Consult Notes Yareli Chandra MD - 03/27/2013 6:59 AM PSTFormatting of this note might be different fro m the original. Consults by Yareli Chandra MD at 03/27/13 0659 Author: Yareli Chandra MD Service: Neurology Author Type: Physician Filed: 03/28/13 0813 Date of Service: 03/27/1359 Status: Signed Marble Coper: Yareli Chandra MD (Physician) I was asked by primary team to evaluate this patient in neurological consultation. Shaila Son is a 42 y.o. right handed female who was transfered to the hospital with fiordaliza f complaint of 2 seizures, felt to be related to alcohol withdrawal and UTI complicated with sepsis. Patient has been diagnosed with strep pharyngitis, low Mg and alcohol abuse / withdrawal on 03/17/13. Patient tried to stop drinking (not sure exactly when) and she ended up having 2 seizures. She bitten lip/tongue on side but she can not remember details about her seizure/s. She admi ts today to being heavy drinker (she drink 6-8 beers daily). She also admitted to previous s [facility]. She reports that her seizures has been always related to trying quit drinking. Her brother (Ashutosh) confirms that all her seizures has been related to drinking and specifica lly to alcohol withdrawal. He reports 1 - 2 seizure/s a year. He thinks that she has seizure s for years (related to alcohol). She reports a h/o head trauma with loc more than 30 minute s but no h/o meningitis or encephalitis. Father had seizures related to alcohol withdrawal a s well. She was admitted on 03/23/13 and I was called on 03/26/13 with concern if further testing n eed to be run or if she should be on treatment for seizure. Head CT was recommended and it was unremarkabe. EEG also was unremarkable. Review of Systems Patient reports chills, headache (from cough), and shortness of breath. But no weakness, nu mbness, slurred speech or dysphagia. PMH: Patient Active Problem List Diagnosis Date Noted Seizure disorder, secondary 03/24/2013 Seizure disorder 03/23/2013 Sepsis(995.91) 03/23/2013 UTI (lower urinary tract infection) 03/23/2013 Hepatic encephalopathy 07/31/2011 Thrombocytopenia, unspecified 07/29/2011 Anemia 07/29/2011 Past Medical History Diagnosis Date Hemorrhage of gastrointestinal tract, unspecified Liver disease Hypertension Anemia Past Surgical History Procedure Date Esophagogastroduodenoscopy 07/30/2011 Procedure: ESOPHAGOGASTRODUODENOSCOPY; Surgeon: Mitchell Stewart IV, MD; Location: [facility]; Service: Gastroenterology; Laterality: N/A; anesthesia assist if available since may be difficult to sedate Hx of tracheostomy Allergy: Allergies Allergen Reactions Ciprofloxacin Other (See Comments) Pt. Unable to recall, this information came from [facility] record Ibuprofen Other (See Comments) Pt. Unable to recall, this information came from [facility] record Medications: Home medications: Prior to Admission medications Medication Sig Start Date End Date Taking? Authorizing Provider lorazepam (ATIVAN) 2 MG tablet Take 2 mg by mouth 2 (two) times daily. Indications: Acut e Alcohol Withdrawal Syndrome Historical Provider Scheduled Meds: cefTRIAXone 1 g Intravenous Q24H lactulose 20 g Oral TID multivitamin & minerals w iron/FA 1 tablet Oral Daily spironolactone 25 mg Oral BID thiamine 100 mg Oral Q24H [DISCONTINUED] ipratropium-albuterol 3 mL Nebulization Q6H FHx: History reviewed. No pertinent family history. SHx: History Social History Marital Status: Single Spouse Name: N/A Number of Children: N/A Years of Education: N/A Occupational History Not on file. Social History Main Topics Smoking status: Current Every Day Smoker Smokeless tobacco: Not on file Alcohol Use: 3.6 oz/week 6 Cans of beer per week Drug Use: Yes Special: Marijuana Sexually Active: Other Topics Concern Not on file Social History Narrative No narrative on file Objective: Vitals: BP 118/69 | Pulse 105 | Temp 98.8 F (37.1 C) (Axillary) | Resp 20 | Ht 1.702 m (5' 7") | Wt 77.248 kg (170 lb 4.8 oz) | BMI 26.67 kg/m2 | SpO2 94% | ? No General: Well developed, well nourished, in no acute distress Neck: Supple, unable to appreciate bruits. Heart: Regular rate and rhythm, S1, S2 Extremities: Edema 2+ Detailed Neurologic Exam: Speech: Is normal; fluent and spontaneous with normal comprehension Cognition: The patient is oriented to person, place, and time. Cranial Nerves: At this time, the pupils are equal, round, and reactive to light. Visual fi elds are full to finger confrontation. Extraocular movements are intact. Trigeminal sensatio n is intact and the muscles of mastication are normal. The face is symmetric (swelling of th e right side of the lower lip). Hearing is symmetric bilaterally to fingers rubbing. The pal ate elevates in the midline. Voice is normal. Shoulder shrug is normal. The tongue has gio l motion without fasciculations. Coordination: Normal finger to nose. Normal rapid alternating movements. Gait: Heel-toe and tandem gait are normal. Observation: No asymmetry, no atrophy, and no involuntary movements noted. Tone: Normal muscle tone. Strength: Strength is 5/5 in the upper and lower limbs. Light Touch: Normal light touch sensation in upper and lower extremities. DTR's: Deep tendon reflexes in the upper and lower extremities are normal bilaterally. Labs Lab Results Component Value Date WBC 7.2 03/27/2013 HGB 8.9* 03/27/2013 HCT 25.4* 03/27/2013 MCV 98.6 03/27/2013 PLT 98* 03/27/2013 Lab Results Component Value Date CREATININE 0.50 03/27/2013 BUN 8 03/27/2013 NA 128* 03/27/2013 K 4.1 03/27/2013 CL 104 03/27/2013 CO2 20* 03/27/2013 Ammonia: 42 M.9 Po4: 2.4 INR: 1.[address]: 1. No acute intracranial hemorrhage. 2. 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 EEG: Unremarkable, mild generalized nonspecific cerebral dysfunction. No ictal or interictal dis charges. Assessment: This patient was admitted to the hospital with: 1- Two seizures reported after quitting drinking in patient with h/o alcohol abuse and freq uent alcohol related seizures. Most Likely provoked seizure. 2- Alcohol withdrawal with hyponatremia. 3- UTI and URTI, on rocephin. 4- Cirrhosis with ascites and hepatic encephlaopathy. 5- Anemia. The patient reports that al her seizures were related to alcohol withdrawal. I called the brother and he confirms that all her seizures were related to alcohol withdraw al. However, with frequent seizures, she may benefit from being on AED to reduce the risk of greene ving seizures. I disused with her starting AED and she decide not to take any medication as she thinks elisabeth t her seizures are related to alcohol and she is planning to quit. Bilateral coil embolization of the facility maintenance technician space, not sure yet from indication. Patient dos not remember the indication for this procedure. Plan: 1- The differential diagnosis and the necessary work up were discussed with the patient in detail. 2- I reviewed the outside medical record and summarize it in my HPI. 3- We discussed the safety issues in detail including safe environment. The patient was ins tructed not to drive a vehicle or vessel of any kind, swim, bathe alone, boat, scuba, work o n heights, operate heavy machines or cook on open fire for six (6) months from any event of loss of consciousness, altered awareness or loss of body control. 4- Alcohol-related seizures, she declins starting AED at this time. She understands benefit s and risks. 5- Alcohol withdrawal, she is on CIWA protocol. 6- Correct electrolytes as need as this may contribute to her seizure disorder. 7- #3, #4, #5, and general care including GI and DVT prophylaxis, per primary team. Thank you for allowing us to participate in your patient care. Please call with questions. documented in this e ncounter ED Notes Aimee Ibanez PA-C - 03/23/2013 5:21 AM PSTFormatting of this note might be different fro m the original. ED Provider Notes by Aimee Ibanez PA-C at 03/23/13520 Author: Aimee Ibanez PA-C Service: (none) Author Type: Physician Pastry Sous Chef - Certified Filed: 03/23/13 0645 Date of Service: 03/23/13520 Status: Signed Marble Coper: Aimee Ibanez PA-C (Physician Pastry Sous Chef - Certified) Related Notes: Cosigned by Shaun Lee MD (Physician) filed at 03/23/13 0713 Procedures [facility] Department of Emergency Medicine History of Present Illness Patient Identification Shaila Son is a 42 y.o. female. Patient information was obtained from EMS personnel. History/Exam limitations: mental status. Patient presented to the Emergency Department by: [facility] Chief Complaint Chief Complaint Patient presents with Seizures Transfer from [facility] with seizures and ETOH withdrawl. Withdrawal The patient presents with a complaint of SEIZURE, and fever . She had several seizures t onight as well. The patient has a seizure history with alcohol withdrawal The seizure was witnessed by her brother whom she lives with. The seizure started at ? a nd lasted an estimated few minutes. The following are reported to have potentially been мария sons for the patient to have a seizure: no alcohol in 36 ours The patient s seizure is described as: tonic clonic. The patient had the following post- ictal symptoms: drowsy. The patient has the following apparent injuries following the seizure: lip laceration, has right hip/buttocks hematoma and abrasions The mechanism of the patient s injury was seizure, and occurred at home. The severity of the patient s symptoms is described as moderate. The patient is reported to have had los s of consciousness. The patient also has the following associated symptoms: drowsy. The patient is on the following anticoagulant medications: none Care prior to arrival consisted of Ativan via EMS, with relief. Pt also presented with fever 101 last night She denies being ill with any URI sx Past Medical History Diagnosis Date Hemorrhage of gastrointestinal tract, unspecified Liver disease Hypertension Anemia Past Surgical History Procedure Date Esophagogastroduodenoscopy 07/30/2011 Procedure: ESOPHAGOGASTRODUODENOSCOPY; Surgeon: Mitchell Stewart IV, MD; Location: [facility]; Service: Gastroenterology; Laterality: N/A; anesthesia assist if available since may be difficult to sedate Hx of tracheostomy Prior to Admission medications Medication Sig Start Date End Date Taking? Authorizing Provider lorazepam (ATIVAN) 2 MG tablet Take 2 mg by mouth 2 (two) times daily. Indications: Acut e Alcohol Withdrawal Syndrome Historical Provider Allergies Allergen Reactions Ciprofloxacin Other (See Comments) Pt. Unable to recall, this information came from [facility] record Ibuprofen Other (See Comments) Pt. Unable to recall, this information came from [facility] record History Social History Marital Status: Single Spouse Name: N/A Number of Children: N/A Years of Education: N/A Occupational History Not on file. Social History Main Topics Smoking status: Current Every Day Smoker Smokeless tobacco: Not on file Alcohol Use: 3.6 oz/week 6 Cans of beer per week Drug Use: Yes Special: Marijuana Sexually Active: Other Topics Concern Not on file Social History Narrative No narrative on file History reviewed. No pertinent family history. Review of Systems Constitutional: Negative for: chills, fatigue, sweats or weight loss Positive for: fever Eyes: Negative for: decreased vision or irritated eyes Nose: Negative for: nosebleed or nasal congestion Throat: Negative for: mouth sores Positive for: lip laceration Cardiovascular/Respiratory: Negative for: chest pain, shortness of breath, cough Gastrointestinal: Negative for: abdominal pain, vomiting, diarrhea, black or bloody stools Genitourinary: Negative for: dysuria, hematuria, urinary problems Musculoskeletal: Negative for: myalgias and arthralgias Skin: Negative for: rash or lesions Neuro and psych: Negative for: fainting, head injury, trouble walking Positive for: seizure Endocrine/Heme/Lymph: Negative for: swollen lymph nodes, easy bruising Physical Exam BP 132/89 | Pulse 128 | Temp 101.9 F (38.8 C) (Oral) | Resp 18 | SpO2 93% | Breastfeedi ng? No Pulse Oximetry interpretation: Normal, tachycardic 128, febrile 101.9 GCS: 4 - Opens eyes on own 5 - Alert and oriented 6 - Follows simple motor commands GCS Score: 15 General: Alert, in no apparent distress, she is quietly lying flat on her left side, she o pens eyes when I ask her questions, she FLOYD, her IVFluids are infusing, she is able to answ er questions appropriately Eyes: Normal inspection, pupils equal and round, non-icteric ENT: Ears normal without any drainage Nose normal Pharynx normal Lower lip has dried blood over laceration Neck: Normal inspection Supple No lymphadenopathy Cardiovascular: Rate tachycardic and rhythm normal Respiratory: Breath sounds normal bilaterally Abdomen: Soft, obese, generalized tenderness without any rebound, , non-distended No guarding Genitourinary: Pt has ocasio catheter placed Back: Normal inspection Skin: Hyperpigmented areas to abdomen, she has a 17cm (width) x 14cm (length) ecchymosis and abrasions over right hip/buttocks Warm and dry No rash Neuro: No motor deficit No sensory deficit Gait not tested d/t condition Medical Decision Making and Emergency Department Course ED Department Course 0530 pt presents as a transfer from [facility] for alcohol abuse, seizures from withdrawal a nd fever with UTI. She has rec'd 5 liters of Fluids, vanco and zosyn. Dr Lee rec'd report f rom [place], he is aware of pt, he rec admission. I will request a bed now. Pt is able to tell me she is in a hospital and that she arrived via ambulance. She can tell me its almost Sunday, that its March and year 2012. She vaguely remembers having a seizure at home but not much else. Pt was seen earlier at [facility] for abd pain, CT at that earlier visit indicated chronic c hangusha,sent home on Tramadol and returned with a hx of having 2 seizures at home. She hasn't had any ETOH in 36 hours. After discussing case with Dr Lee who took the initial transfer call, based off pts, fever , vitals signs, and seizures, she qualified for ICU status at [facility], and Dr Lee told ER staff her sx wouldn't qualify for our ICU status. He agreed on transfer. Her ER discharge d x from [facility] are: sepsis, ETOH withdrawal/seziures, chronic liver failure. I am reviewing her medical records. She also has a hx of chronic anemia and esophageal vari brian. She did require Ativan IV in the ER for seizures that she had while in ER. 0544 Dr Dumont called, case discussed he will admit pt for further eval. 0600 Flu swab ordered because of her hx of fever. Records Reviewed Nursing notes. Laboratory Evaluation Results Procedure Component Value Ref Range Date/Time Comprehensive metabolic panel [[id number]] (Abnormal) Collected:03/23/13609 Order Status:Completed Updated:03/23/13639 Specimen Information:Blood SODIUM 138 135 - 143 mmol/L POTASSIUM 3.3 (L) 3.5 - 4.9 mmol/L CHLORIDE 108 99 - 109 mmol/L CO2 20 (L) 23 - 32 mmol/L ANION GAP AGAP 13 5 - 20 mmol/L GLUCOSE 98 65 - 99 mg/dL BUN 3 (L) 8 - 25 mg/dL CREATININE 0.60 0.50 - 1.00 mg/dL BUN/CREAT 5 CALCIUM 6.4 (L) 8.5 - 10.2 mg/dL TOTAL PROTEIN 6.6 6.3 - 8.2 g/dL Albumin 1.4 (L) 3.6 - 5.0 g/dL GLOBULIN 5.2 (H) 1.3 - 4.9 g/dL A/G 0.3 (L) 1.0 - 2.4 TBIL 1.3 0.1 - 1.5 mg/dL ALK PHOS 154 (H) 35 - 115 U/L AST 64 (H) 10 - 45 U/L ALT 19 10 - 65 U/L EGFR >60 >60 mL/min/1.73m2 Ethanol Level [[id number]] Collected:03/23/13609 Order Status:Completed Updated:03/23/13639 Specimen Information:Blood ALCOHOL,ETHYL <3 <10 mg/dL CBC w Auto Diff [[id number]] (Abnormal) Collected:03/23/13609 Order Status:Completed Updated:03/23/13619 Specimen Information:Blood WBC 8.8 3.8 - 11.0 K/uL RBC 2.89 (L) 3.70 - 5.10 M/uL HGB 9.4 (L) 11.3 - 15.5 g/dL HCT 28.4 (L) 34.0 - 46.0 % MCV 98.2 80.0 - 100.0 fl MCH 32.4 27.0 - 34.0 pg MCHC 33.0 32.0 - 35.5 g/dL RDW SD 52.1 37 - 53 fl PLT 101 (L) 150 - 400 K/uL MPV 8.3 fl DIFF TYPE AUTOMATED NEUTROPHILS 77.6 % LYMPHOCYTES 10.1 % MONOCYTES 11.9 % EOSINOPHILS 0.1 % BASOPHILS 0.3 % NEUTROPHILS ABS 6.8 1.9 - 7.4 K/uL LYMPHOCYTES ABS 0.9 (L) 1.0 - 3.9 K/uL MONOCYTES ABS 1.0 (H) 0 - 0.8 K/uL EOSINOPHILS ABS 0.0 0 - 0.5 K/uL BASOPHILS ABS 0.0 0 - 0.1 K/uL Radiology and EKG Evaluation Imaging Results None ED Diagnoses Final diagnoses Seizure Fever Alcohol abuse Alcohol withdrawal Anemia Disposition: ED Disposition Admit/Observation Requested Unit:: Acute Care Bed request special needs: None Diagnosis?: seizure, alcohol abuse, fever, UTI Aimee Ibanez PA-C 03/23/13 0645 Cedric, Shaun Mosley MD - 03/23/2013 5:21 AM PST ED Provider Notes by Shaun Lee MD at 03/23/13520 Author: Shaun Lee MD Service: (none) Author Type: Physician Filed: 03/23/1313 Date of Service: 03/23/13520 Status: Signed Marble Coper: Shaun Lee MD (Physician) Related Notes: Related Note by Aimee Ibanez PA-C (Physician Past[employer] Sous [employer] - Certified) filed a t 03/23/13 0645 I have reviewed the note and supervised the mid-level provider. Shaun Lee MD 03/23/13712 onversion Transacti on, Provider Unknown - 03/23/2013 5:12 AM PSTFormatting of this note might be different fro m the original. ED Notes by Matt Benavides RN at 03/23/13511 Author: Matt Benavides RN Service: (none) Author Type: Registered Nurse Filed: 03/23/13518 Date of Service: 03/23/13511 Status: Signed Marble Coper: Matt Benavides RN (Registered Nurse) Pt. Is a transfer from [facility] in [place], [place]. Per report she c/o abd pain and seizures x 2. Pt. Has hx of ETOH abuse and withdrawal. Pt. Additionally has urosepsis up on report. Prior to arrival to this facility the pt. Has received 5L of NS,"Banana bag", Zof ran 4mg, Ativan 3mg, Zosyn 3.375g in D5, Vancomycin 952.5mg in D5. Pt. Had a 3rd "tonic/clon ic" seizure, lasting about [address], [address] [facility] and has a lip laceration on her bottom lip. Pt. Is lethargic, but opens eyes to speech. No seizure activity noted at this time. Sei zure precautions in place. Pt. Sleeping at this time. Matt Benavides RN 03/23/13518 onver miriam Transaction, Provider Unknown - 03/23/2013 4:41 AM PST ED Notes by Matt Benavides RN at 03/23/13440 Author: Matt Benavides RN Service: (none) Author Type: Registered Nurse Filed: 03/23/13440 Date of Service: 03/23/13440 Status: Signed Marble Coper: Matt Benavides RN (Registered Nurse) Bed:08
Expected date:
Expected time:
Means of arrival:
Comments:
onver miriam Transjacob, Provider Unknown - 03/23/2013 4:36 AM PST ED Notes by Jose Carlos Anderson RN at 03/23/13435 Author: Jose Carlos Anderson RN Service: (none) Author Type: Registered Nurse Filed: 05/03/13150 Date of Service: 03/23/13435 Status: Signed Marble Coper: Jose Carlos Anderson RN (Registered Nurse) Pt is a transfer from [facility]. Pt had seizures at home x2 as well as one seiz ure at [facility]. Pt has hx cirrhosis, ETOH abuse, varices, pancreatitis, and reese ia. [place] Jose Carlos Anderson RN 05/03/13150 docume nted in this encounter Plan of Treatment Not on filedocumented as of this encounter Procedures + +--------+ + + + | Procedure Name | Priori | Date/Time | Associated Diagnosis | Comments | | | ty | | | | + +--------+ + + + | XR CHEST 2 VIEWS | Routin | 03/27/2013 | | Results for this | | | e | 8:04 AM | | procedure are in the | | | | PST | | results section. | + +--------+ + + + | CT HEAD WO CONTRAST | Routin | 03/26/2013 | | Results for this | | | e | 7:48 PM | | procedure are in the | | | | PST | | results section. | + +--------+ + + + | US ABDOMEN LIMITED | Routin | 03/25/2013 | | Results for this | | | e | 5:55 PM | | procedure are in the | | | | PST | | results section. | + +--------+ + + + | XR CHEST 2 VIEWS | Routin | 03/25/2013 | | Results for this | | | e | 10:25 AM | | procedure are in the | | | | PST | | results section. | + +--------+ + + + | INFLUENZA A AND B | STAT | 03/23/2013 | | Results for this | | AG, [place] | | 6:18 AM | | procedure are in the | | | | PST | | results section. | + +--------+ + + + | CT ABDOMEN PELVIS WO | Routin | 03/22/2013 | | Results for this | | CONTRAST | e | 10:58 AM | | procedure are in the | | | | PST | | results section. | + +--------+ + + + documented in this encounter Results XR Chest 2 Vws (03/27/2013 8:04 AM PST) + + | Specimen | + + | | + + + + + | Impressions | Performed At | + + + | 1. Central bronchial wall thickening again noted suggesting | | | bronchitis. 2. Central interstitial prominence with thickening | | | along the major and minor fissures. This may reflect pulmonary edema | | | or atypical pneumonitis. 3. No effusions or gross congestion. | | | | | + + + + + + | Narrative | Performed At | + + + | HISTORY: Pneumonia. Followup. COMPARISON: 03/25/13. | | | TECHNIQUE: Frontal and lateral films of the chest were obtained. | | | FINDINGS: Persistent mild bronchial wall thickening centrally | | | consistent with bronchitis. Subtle reticular interstitial prominence | | | in both lung montoya centrally, increased. This may reflect atypical | | | pneumonitis or pulmonary edema. Minimal atelectasis or edema along | | | the major and minor fissures. No effusions. Heart size is normal. | | + + + + + | Procedure Note | + + | Jermaine, Rad Conversion - 11/29/2018 3:48 PM PDT HISTORY:Pneumonia. Followup. | | COMPARISON:03/25/13. TECHNIQUE:Frontal and lateral films of the chest were obtained. | | FINDINGS:Persistent mild bronchial wall thickening centrally consistent with bronchitis. | | Subtle reticular interstitial prominence in both lung montoya centrally, increased. This | | may reflect atypical pneumonitis or pulmonary edema. Minimal atelectasis or edema along | | the major and minor fissures. No effusions. Heart size is normal. IMPRESSION: 1. | | Central bronchial wall thickening again noted suggesting bronchitis.2. Central | | interstitial prominence with thickening along the major and minor fissures. This may | | reflect pulmonary edema or atypical pneumonitis.3. No effusions or gross congestion. | | | |Persistent mild bronchial wall thickening centrally consistent with bronchitis. Subtle reti cular interstitial prominence in both lung montoya centrally, increased. This may reflect aty pical pneumonitis or pulmonary edema. Minimal atelectasis or edema | |along the major and minor fissures. No effusions. Heart size is normal. | | | |IMPRESSION: | |1. Central bronchial wall thickening again noted suggesting bronchitis. | |2. Central interstitial prominence with thickening along the major and minor fissures. Thi s may reflect pulmonary edema or atypical pneumonitis. | |3. No effusions or gross congestion. | | | | | + + CT Head wo Contrast (03/26/2013 7:48 PM PST) + + | Specimen | + + | | + + + + + | Impressions | Performed At | + + + | 1. No acute intracranial hemorrhage. 2. Post procedural changes | | | status post bilateral coil embolization of the facility maintenance technician space. | | | | | + + + + + + | Narrative | Performed At | + + + | SHAILA SON 1970 [address] HEAD WO CONTRAST | | | 03/26/2013 7:48 PM INDICATION: Alcohol abuse, fever, seizure | | | COMPARISON: None TECHNIQUE: CT scan of the head without contrast. | | | 5-mm axial noncontrast images were acquired from the foramen magnum | | | through the cranial vertex. FINDINGS: Hand Fur Cleaner imaging demonstrates | | | normal craniocervical alignment. There is no prevertebral soft tissue | | | swelling. Coil embolization is noted along the bilateral facility maintenance technician | | | space. There is no uncal or tonsillar herniation. There is no | | | intra-axial mass. No extra-axial fluid collection is present. The | | | ventricular system is normal in size. There is no midline shift. The | | | brain maintains normal puckett-white differentiation. There is no acute | | | intracranial hemorrhage. The parotid glands are normal. There is mild | | | mucosal thickening of the right maxillary sinus. There are no lytic | | | or blastic lesions. The mastoid air cells are well aerated. | | + + + + + | Procedure Note | + + | Jermaine, Rad Conversion - 11/29/2018 3:48 PM PDT SHAILA SON years FemaleCT | | HEAD WO [id number]/18/2013 7:48 PM INDICATION: Alcohol abuse, fever, seizure | | COMPARISON: None TECHNIQUE: CT scan of the head without contrast. 5-mm axial | | noncontrast images were acquired from the foramen magnum through the cranial vertex. | | FINDINGS: Hand Fur Cleaner imaging demonstrates normal craniocervical alignment. There is no | | prevertebral soft tissue swelling. Coil embolization is noted along the bilateral | | facility maintenance technician space. There is no uncal or tonsillar herniation. There is no intra-axial | | mass. No extra-axial fluid collection is present. The ventricular system is normal in | | size. There is no midline shift. The brain maintains normal puckett-white differentiation. | | There is no acute intracranial hemorrhage. The parotid glands are normal. There is mild | | mucosal thickening of the right maxillary sinus. There are no lytic or blastic lesions. | | The mastoid air cells are well aerated. IMPRESSION: 1. No acute intracranial | | hemorrhage.2. Post procedural changes status post bilateral coil embolization of the | | facility maintenance technician space. | |There is no uncal or tonsillar herniation. There is no intra-axial mass. No extra-axial flu id collection is present. The ventricular system is normal in size. There is no midline shif t. The brain maintains normal | |puckett-white differentiation. There is no | |acute intracranial hemorrhage. The parotid glands are normal. There is mild mucosal thicken ing of the right maxillary sinus. There are no lytic or blastic lesions. The mastoid air fatemeh ls are well aerated. | | | |IMPRESSION: | |1. No acute intracranial hemorrhage. | |2. Post procedural changes status post bilateral coil embolization of the facility maintenance technician space . | | | | | + + US Abdomen Limited (03/25/2013 5:55 PM PST) + + | Specimen | + + | | + + + + + | Impressions | Performed At | + + + | 1. Lobulated appearance of the liver secondary to underlying | | | cirrhosis. Ascites is probably related to liver failure. 2. | | | Cholelithiasis without evidence of acute cholecystitis. | | | | | + + + + + + | Narrative | Performed At | + + + | SHAILA SON 1970 US ABDOMEN LIMITED 03/25/2013 5:55 PM | | | HISTORY: Liver cirrhosis, abdominal pain COMPARISON: CT, March | | | 2012 TECHNIQUE: Transabdominal ultrasound, grayscale and | | | color flow evaluation. FINDINGS: There is a nodular appearance of | | | the liver which is unchanged from prior study. A moderate amount of | | | ascites is seen along the liver margin. The hepatic veins appear | | | patent. The gallbladder is compressed. This artificially exaggerates | | | the gallbladder wall thickness which measures 6 mm. A few gallstones | | | are noted layering in the lumen of the gallbladder. The common bile | | | duct measures 5.3 mm in diameter. Normal anatomic flow is seen in the | | | portal and hepatic veins. The pancreas is obscured by bowel gas. | | + + + + + | Procedure Note | + + | Jermaine, Rad Conversion - 11/29/2018 3:48 PM PDT SHAILA SON1970US ABDOMEN | | [id number]/25/2013 5:55 PM HISTORY: Liver cirrhosis, abdominal pain COMPARISON: CT, | | March 22, 2013 TECHNIQUE: Transabdominal ultrasound, grayscale and color flow | | evaluation. FINDINGS: There is a nodular appearance of the liver which is unchanged from | | prior study. A moderate amount of ascites is seen along the liver margin. The hepatic | | veins appear patent. The gallbladder is compressed. This artificially exaggerates the | | gallbladder wall thickness which measures 6 mm. A few gallstones are noted layering in | | the lumen of the gallbladder. The common bile duct measures 5.3 mm in diameter. Normal | | anatomic flow is seen in the portal and hepatic veins. The pancreas is obscured by bowel | | gas. IMPRESSION: 1. Lobulated appearance of the liver secondary to underlying | | cirrhosis. Ascites is probably related to liver failure.2. Cholelithiasis without | | evidence of acute cholecystitis. Electronically signed by Connor Ellis MD on | | 03/25/2013 6:12 PM | |veins. The pancreas is obscured | |by bowel gas. | | | |IMPRESSION: | |1. Lobulated appearance of the liver secondary to underlying cirrhosis. Ascites is probabl y related to liver failure. | |2. Cholelithiasis without evidence of acute cholecystitis. | | | | | + + XR Chest 2 Vws (03/25/2013 10:25 AM PST) + + | Specimen | + + | | + + + + + | Impressions | Performed At | + + + | 1. Question bronchitis. 2. No airspace infiltrates. 3. | | | Previous reticular opacities in the left upper lobe are obscured | | | today due to overlying EKG leads. PA and repeat lateral films are | | | recommended. 4. Persistent mild cardiac enlargement. | | | | | + + + + + + | Narrative | Performed At | + + + | HISTORY: Cough. Question pneumonia. COMPARISON: 07/29/11. | | | TECHNIQUE: Frontal and lateral films of the chest were obtained. | | | FINDINGS: Again there is mild elevation of the right hemidiaphragm. | | | Heart size are means mildly enlarged. Unfortunately, the EKG leads | | | overlie the region previously described showing reticular changes in | | | the left upper lobe. PA and lateral films would be more detailed in | | | evaluation of reticular changes. There are is no airspace infiltrate | | | or effusion. Lateral film demonstrates significant motion, limiting | | | evaluation. Repeat lateral film could be obtained at no additional | | | charge. There may be slight bronchial wall thickening. | | + + + + + | Procedure Note | + + | Jermaine, Rad Conversion - 11/29/2018 3:48 PM PDT HISTORY:Cough. Question pneumonia. | | COMPARISON:07/29/11. TECHNIQUE:Frontal and lateral films of the chest were obtained. | | FINDINGS:Again there is mild elevation of the right hemidiaphragm. Heart size are means | | mildly enlarged. Unfortunately, the EKG leads overlie the region previously described | | showing reticular changes in the left upper lobe. PA and lateral films would be more | | detailed in evaluation of reticular changes. There are is no airspace infiltrate or | | effusion. Lateral film demonstrates significant motion, limiting evaluation. Repeat | | lateral film could be obtained at no additional charge. There may be slight bronchial | | wall thickening. IMPRESSION: 1. Question bronchitis.2. No airspace infiltrates.3. | | Previous reticular opacities in the left upper lobe are obscured today due to overlying | | EKG leads. PA and repeat lateral films are recommended.4. Persistent mild cardiac | | enlargement. | |additional charge. There may be slight bronchial | |wall thickening. | | | |IMPRESSION: | |1. Question bronchitis. | |2. No airspace infiltrates. | |3. Previous reticular opacities in the left upper lobe are obscured today due to overlying EKG leads. PA and repeat lateral films are recommended. | |4. Persistent mild cardiac enlargement. | | | | | + + Influenza A and B Ag, [place] (03/23/2013 6:18 AM PST) + + | Specimen | + + | | + + + + + | Narrative | Performed At | + + + | Specimen Description NASOPHARYNGEAL RESULT | EXTERNAL LAB | | Negative for Influenzae Type A | | | and Type B antigen by ICA | | | Testing performed at [facility];[address];[place] [address] | | | REPORT STATUS 03/23/2013 FINAL | | + + + + +---------+ + + | Performing | Address | City/State/Zipcode | Phone Number | | Organization | | | | + +---------+ + + | EXTERNAL LAB | | | | + +---------+ + + CT Abdomen Pelvis wo Contrast (03/22/2013 10:58 AM PST) + + | Specimen | + + | | + + + + + | Narrative | Performed At | + + + | This is a non-reportable procedure without a radiologist report and | | | is used for image storage only | | + + + + + | Procedure Note | + + | Edgardo Dean Conversion - 11/29/2018 3:48 PM PDT This is a non-reportable procedure | | without a radiologist report and isused for image storage only | + + documented in this encounter Visit Diagnoses + + | Diagnosis | + + | Seizure (HCC) Other convulsions | + + | UTI (lower urinary tract infection) Urinary tract infection, site not specified | + + | Seizure disorder, secondary (HCC) Unspecified epilepsy without mention of intractable | | epilepsy | + + | Alcohol dependence (HCC) Other and unspecified alcohol dependence, unspecified | | drinking behavior | + + | Fever Fever, unspecified | + + | Alcohol abuse Alcohol abuse, unspecified | + + | Alcohol withdrawal (HCC) Alcohol withdrawal | + + | Anemia Anemia, unspecified | + + | Hepatic encephalopathy (HCC) Hepatic encephalopathy | + + | Seizure disorder (HCC) Unspecified epilepsy without mention of intractable epilepsy | + + | Sepsis, unspecified (HCC) Sepsis | + + | Thrombocytopenia, unspecified (HCC) Thrombocytopenia, unspecified | + + documented in this encounter
--- OUTSIDE RECORDS SUMMARY | ~2020-01-12 | XMS | Encounter Summary ---
Demographics + + + | Address | [address] | | | [place] [address] | + + + | Home Phone | | + + + | Preferred Language | Unknown | + + + | Marital Status | Single | + + + | Yazidi Affiliation | [id number] | + + + | Race | or | + + + | Ethnic Group | Not or | + + + Author + + + | Author | [facility] | | | and [place] | + + + | Organization | [facility] | | | and [place] | + + + | Address | Unknown | + + + | Phone | Unavailable | + + + Support + + + + + | Name | Relationship | Address | Phone | + + + + + | Joanne Pham | ECON | [address] | | | | | [place] | | | | | [address] | | + + + + + | Viktor Son | EDDIE | Unknown | | + + + + + | Edd Gill | ECON | Unknown | | + + + + + | Conner Barber | ECON | Unknown | | + + + + + Care Team Providers + +------+ + | Care Tourist Information Assistant Name | Role | Phone | + +------+ + | Trixie Rose PA-C | PCP | | + +------+ + Reason for Visit + +--------+ + | Reason | Onset | Comments | | | Date | | + +--------+ + | Referral | 05/27/ | | | | 2020 | | + +--------+ + Encounter Details +--------+ + + + + | Date | Type | Department | Care Team | Description | +--------+ + + + + | 05/27/ | Telephone | [facility] | Lion Ballard | Referral | | 2020 | | GASTROENTEROLOGY | MD Dimitri [address] | | | | | [address] | [place] [address] | | | | | [place], [place] | [phone] | | | | | [address] | | | | | | [phone] | | | +--------+ + + + [...] Notes Telephone Encounter - Deborah Mancuso - 06/05/2019 9:25 AM PSTCalled patient to schedule appt. She stated she does not know if she has transportation and has an appt on 06/08 with [facility] and will give us a call after.Electronically signed by Deborah Mancuso at 06/05 9:25 AM PSTTelephone Encounter - Anabella Serrano - 06/04/2019 4:04 PM Zach/Kayli dias, is returning call for Referral and would like a call back. Additional Call Details: Calling with phone numbers requested: [phone] Patients direct number [phone] Conner/friend elephone Encounter - Princess Tidwell - 05/27/2019 9:39 AM PSTTried calling back to inform that referral is in revie w, number listed is a fax number. 9:4 0 AM PSTTelephone Encounter - Gina Hinton I - 05/27/2019 8:30 AM PSTMichael- Forrest, is calling regarding Referral and would like a call back. Additional Call Details: Requesting referral status. Call back at: [phone] If this is a symptom based call, was patient offered triage? Not Applicable If this is a symptom based call and you were unable to immediately transfer the call to a miguelina mueller director corporate security was caller made aware that if at any time she feels it is an emergency they sh ould call 911 or go to the nearest emergency room? not applicable documented in this encounter Plan of Treatment Not on filedocumented as of this encounter Visit Diagnoses Not on filedocumented in this encounter"
--- OUTSIDE RECORDS SUMMARY | ~2020-01-12 | XMS | Encounter Summary ---
Demographics + + + | Address | [address] | | | [place] [address] | + + + | Home Phone [...] + + + | Author | [facility] | | | and [place] | + + + | Organization | [facility] | | | and [place] | + + + | Address | Unknown | + + + | Phone | Unavailable | + + + Support + + + + + | Name | Relationship | Address | Phone | + + + + + | Joanne Pham | ECON | [address] | | | | | [place] | | | | | [address] | | + + + + + | Viktor Son | EDDIE | Unknown | | + + + + + | Edd Gill | ECON | Unknown | | + + + + + | Conner Barber | ECON | Unknown | | + + + + + Care Team Providers + +------+ + | Care Cosmetics Counter Manager Name | Role | Phone | + [...] + + | 03/17/ | Emergency | [facility] | Nathaly, | Urinary tract | | 2015 | | [facility] | Wang Orourke MD [address] | infection without | | | | CENTER [address] | [address] [place] | hematuria, site | | | | [place], [place] | [place] [address] | unspecified (Primary | | | | [address] | [phone] | Dx); Anemia, | | | | [phone] | | unspecified anemia | | | [...] note might be different from the original. [facility] Shaila Son Emergency Department Encounter Note [address] [place] [address] PCP:Doctor Unknown [phone] CHIEF COMPLAINT: Chief Complaint Patient presents with Abdominal Pain Knee Pain R ED Room: ED12/ED12 HPI Shaila Son is a 44 y.o. female who presents to the Emergency Department by ambulance for evaluation. This patient fell one week ago and hit her right knee. She was seen at [facility] and had an evaluation but they [...] (A) Clear PH UA 5.5 5.0-8.0 Specific [place] <=1.005 1.001-1.030 PROTEIN UA Negative Negative BLOOD [...] of the right knee. There is normal supervisory examiner alization. No visible fracture or dislocation. There [...] conveyed to the ordering provider, by the cap inspector, immediately following the exam. Dictated and Signed [...] were reviewed along with EMS notes and penitentiary record s if applicable. (See chart for [...] really does not take anything other than vlpa-swc-eloceil medications at this time. I advised her [...] K72.90 572.2 Follow-up Information Follow up with [facility] In 1 week. New Prescriptions TRAMADOL (ULTRAM) [...] + + | Performing | Address | City/State/[facility] | Phone Number | | Organization | [...] + | [facility] | [address] | [place] | [phone] | | [facility] | | [address] | | | - LABORATORY | | [...] [address] | [place] | [phone] | | [facility] | | [address] | | | - LABORATORY | | [...] [address] | [place] | [phone] | | [facility] | | [address] | | | - LABORATORY | | [...] + | [facility] | [address] | [place] | [phone] | | [facility] | | [address] | | | - LABORATORY | | [...] [address] | [place] | [phone] | | [facility] | | [address] | | | - LABORATORY | | [...] [address] | [place] | [phone] | | [facility] | | [address] | | | - LABORATORY | | [...] mL/min/1.73m2 | [facility] | | | [place] | RATE,ESTIMATED | | MEDICAL | | | | mL/min/1.10v1Qeqq than | | CENTER - | | [...] [address] | [place] | [phone] | | [facility] | | [address] | | | - LABORATORY | | [...] [address] | [place] | [phone] | | [facility] | | [address] | | | - LABORATORY | | [...] ordering | | | provider, by the cap inspector, immediately following the exam. | | | [...] to the ordering provider, by the | |cap inspector, immediately following the exam. | | | [...] ST. | [address] | [place] | [phone] | | [facility] | | [address] | | | - LABORATORY | | [...] - 1.030 | [facility] | | | [place], | | | [facility] | | [...] + | [address] | [address] | [place], [place] | [phone] | | [facility] | | [address] | | | - LABORATORY | | [...]
--- OUTSIDE RECORDS SUMMARY | ~2020-01-12 | XMS | Encounter Summary ---
Demographics + + + | Address | [address] | | | [place] [address] | + + + | Home Phone | | + + + | Preferred Language | Unknown | + + + | Marital Status | Single | + + + | Mandaeism Affiliation | 1041 | + + + | Race | or | + + + | Ethnic Group | Not or | + + + Author + + + | Author | [facility] | | | and [place] | + + + | Organization | [facility] | | | and [place] | + + + | Address | Unknown | + + + | Phone | Unavailable | + + + Support + + + + + | Name | Relationship | Address | Phone | + + + + + | Joanne Pham | ECON | [address] | | | | | [place] | | | | | [address] | | + + + + + | Viktor Son | EDDIE | Unknown | | + + + + + | Edd Glil | ECON | Unknown | | + + + + + | Conner Barber | ECON | Unknown | | + + + + + Care Team Providers + +------+ + | Care Fingerprint Technician Name | Role | Phone | + +------+ + | Trixie Rose PA-C | PCP | | + +------+ + Encounter Details +--------+ + + + + | Date | Type | Department | Care Team | Description | +--------+ + + + + | 11/23/ | Abstract | [facility] | Fabien Mccollum | | | 2017 | | NEPHROLOGY [address] | M, DO [address] | | | | | [address] | [address] | | | | | [place] | [place] [address] | | | | | [address] | [phone] | | | | | [phone] | | | +--------+ + + + [...] documented as of this encounter Progress Notes Flor Dodd - 11/23/2016 11:26 AM PDTOutside record: Cytology report from [facility], dos: 7-26-17. Sent to scan. documented in this encounter Plan of Treatment Not on filedocumented as of this encounter Visit Diagnoses Not on filedocumented in this encounter"
--- OUTSIDE RECORDS SUMMARY | ~2020-01-12 | XMS | Encounter Summary ---
Demographics + + + | Address | [address] | | | [place] [address] | + + + | Home Phone | | + + + | Preferred Language | Unknown | + + + | Marital Status | Single | + + + | Mandaen Affiliation | 1041 | + + + | Race | or | + + + | Ethnic Group | Not or | + + + Author + + + | Author | [facility] | | | and [place] | + + + | Organization | [facility] | | | and [place] | + + + | Address | Unknown | + + + | Phone | Unavailable | + + + Support + + + + + | Name | Relationship | Address | Phone | + + + + + | Joanne Pham | ECON | [address] | | | | | [place] | | | | | [address] | | + + + + + | Viktor Son | EDDIE | Unknown | | + + + + + | Edd Gill | ECON | Unknown | | + + + + + | Conner Barber | ECON | Unknown | | + + + + + Care Team Providers + +------+ + | Care Fur Operator Name | Role | Phone | [...] + + | 11/24/ | Telephone | [facility] | Micthell Stewart | Records Request | | 2020 | | GASTROENTEROLOGY | MD Conor [address] | (Ultrasound) | | | | [address] | [address]VD [place], [place] | | | | | [place], [place] | [address] | | | | | [address] | | | | | | [phone] | | | +--------+ + + + [...] Miscellaneous Notes Telephone Encounter - Ashlyn Raines, Manager Ob - 11/25/2019 3:08 PM PDTReceigarth d call from Johnna at [facility] and she was requesting for the ultrasound order from September to be faxed as they are reviewing Dr. Stewart's note from 09/09/19 and they noticed he wa s wanting a ultrasound done. Informed her the only order for the ultrasound I see was entered on 09/17/19 and shows final result. She then asked if we can fax it to them at [phone]. * faxed over todayElectronically signed by Ashlyn Raines, Manager Ob at 0 3:11 PM PDTdocumented in this encounter Plan of Treatment Not on filedocumented as of this encounter Visit Diagnoses Not on filedocumented in this encounter"
--- OUTSIDE RECORDS SUMMARY | ~2020-01-12 | XMS | Encounter Summary ---
Demographics + + + | Address | [address] | | | [place] [address] | + + + | Home Phone | | + + + | Preferred Language | Unknown | + + + | Marital Status | Single | + + + | Orthodox Affiliation | 1041 | + + + | Race | or | + + + | Ethnic Group | Not or | + + + Author + + + | Author | [facility] | | | and [place] | + + + | Organization | [facility] | | | and [place] | + + + | Address | Unknown | + + + | Phone | Unavailable | + + + Support + + + + + | Name | Relationship | Address | Phone | + + + + + | Joanne Pham | ECON | [address] | | | | | [place] | | | | | [address] | | + + + + + | Viktor Son | EDDIE | Unknown | | + + + + + | Edd Gill | ECON | Unknown | | + + + + + | Conner Barber | ECON | Unknown | | + + + + + Care Team Providers + +------+ + | Care Biomedical Equipment Tech Name | Role | Phone | + [...] + + | 09/07/ | Surgery | [facility] | Robel Taylor | DI: CT | | 2016 | | MED CTR IR INTRA OP | MD Char [address] [place] [address] | | | | | [address] | [place] | | | | | [place] | [address] | | | | | [address] | | | | | | [phone] | | | +--------+---------+ + + + [...] ascites and hyponatremia who was transferred from [facility]. She was found to have severe weakness [...] hemodynamically stable and is being discharged to [facility] with continued aldactone, lasix, blood pressure control for portal hypertension and lactulos e. Follow-up at [facility] with Juan Holguin. This patient's pathology report will be forwarded from Dr. Luis Miguel Bucio (pathologist in [place]). Code Status: Full Code Disposition: [facility] Discharge Condition: fair Follow-up Information Follow up with Trixie Rose PA-C In 1 week. Specialty: Internal Medicine Contact information: [address] [place] [address] Discharge Medications [...] by: Jose Carlos Albert MD, 09/10/2015 11:16 [facility] documented in this encounter Medications at Time [...] Albert MD - 09/09/2015 5:37 PM PDT [facility] Hospitalist Progress Note Shaila Son is [...] Product Code RBC Leukocytes Reduced UNIT # [id number] UNIT ABO O UNIT RH POS CROSSMATCH [...] outlined above. Jose Carlos Albert 09/09/2015 17:37 [facility] Portions of this chart may have been created with Panzura voice recognition software. Occasi onal wrong-word or sound-alike substitutions may have occurred due to the inherent gallardo itations of voice recognition software. Please read the chart carefully and recognize, using context, where these substitutions have occurred Jose Carlos Garcia MD - 09/08/2015 5:35 PM PDT [facility] Hospitalist Progress Note Shaila Son is [...] outlined above. Jose Carlos Albert 09/08/2015 17:35 [facility] Portions of this chart may have been created with Panzura voice recognition software. Occasi onal wrong-word or sound-alike substitutions may have occurred due to the inherent gallardo itations of voice recognition software. Please read the chart carefully and recognize, using context, where these substitutions have occurred itchetana, Jose Carlos Chen MD - 09/07/2015 5:42 PM PDT [facility] Hospitalist Progress Note Shaila Son is [...] Product Code RBC Leukocytes Reduced UNIT # [id number] UNIT ABO O UNIT RH POS CROSSMATCH [...] A p reliminary report was sent by [employer] on 09/06/2015 at 7:03 PM with no [...] outlined above. Jose Carlos Albert 09/07/2015 17:42 [facility] Portions of this chart may have been created with Panzura voice recognition software. Occasi onal wrong-word or sound-alike substitutions may have occurred due to the inherent gallardo itations of voice recognition software. Please read the chart carefully and recognize, using context, where these substitutions have occurred arneel, Grant Pardo MD - 09/06/2015 2:33 PM PDT [facility] Hospitalist Progress Note Shaila Son is [...] noting at the time of discharge from [facility] she was gi shawn 5 additional days [...] as outlined above. Grant Lomas 09/06/2015 14:33 [facility] Portions of this chart may have been created with Panzura voice recognition software. Occasi onal wrong-word or sound-alike substitutions may have occurred due to the inherent gallardo itations of voice recognition software. 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 ending on her response to transfusion. 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 Grant Lomas 09/06/2015 14:46 [facility] Portions of this chart may have been created with Panzura voice recognition software. Occasi onal wrong-word or sound-alike substitutions may have occurred due to the inherent gallardo itations of voice recognition software. Please read the chart carefully and recognize, using context, where these substitutions have occurred arker, Grant Pardo MD - 0 09/04/2015 2:57 PM PDT [facility] Hospitalist Progress Note Shaila Son is [...] as outlined above. Grant Lomas 09/06/2015 14:58 [facility] Portions of this chart may have been created with Panzura voice recognition software. Occasi onal wrong-word or [...] Mace MD - 09/03/2015 8:47 AM PDT [facility] Hospitalist Progress Note Shaila Son is [...] and smear. Adames awaiting the records from [facility] to determine the type of treatment she [...] sam was made to accommodate the 8 Martiniquais paracentesis trocar catheter, which were advanced into [...] as outlined above. Grant Lomas 09/03/2015 8:48 [facility] Portions of this chart may have been created with Panzura voice recognition software. Occasi onal wrong-word or [...] mi ght be different from the original. [facility] Hospitalist Progress Note Shaila Son is [...] as outlined above. Grant Lomas 09/02/2015 9:45 [facility] Portions of this chart may have been created with Panzura voice recognition software. Occasi onal wrong-word or sound-alike substitutions may have occurred due to the inherent gallardo itations of voice recognition software. Please read the chart carefully and recognize, using context, where these substitutions have occurred documented in this [facility] H&P Notes Robel Taylor MD - 09/08/2015 [...] by: Robel Taylor MD, 09/08/2015 11:59 [facility] Robel Taylor MD at 0 09/08/2015 12:00 PM PDTParker, Grant Pardo MD - 09/01/2015 6:43 PM PDTFormatting of this note mi ght be different from the original. Patient: Shaila Son : 1970: Age: 45 y.o. MedRec: [id number] Admission date: 09/01/2015 Hospital day #: 0 Physician author: Grant Lomas MD HISTORY AND PHYSICAL CHIEF COMPLAINT: Patient transferred to this facility from [facility] without emergency room rec ords or labs [...] of 4 L paracentesis in 03/29/2015 at [facility] History of seizures at the patient's order from [facility] being divalproex DR 150 mg 3 times [...] at the time of discharge 04/01/2015 from [facility] was tete ing Cefpodoxime 200 mg daily [...] CKTOTAL No results for input(s): PHART, PO2ART, YJS5YNC, UHT8BKQ, BEART, V1PMKHXQ in the last 168 h ours. Xray [...] signed by: Grant Lomas MD 09/01/2015 18:43 [facility] Portions of this chart may have been created with Panzura voice recognition software. Occasi onal wrong-word or sound-alike substitutions may have occurred due to the inherent gallardo itations of voice recognition software. Please read the chart carefully and recognize, using context, where these substitutions have occurred documented in this enc ounter Miscellaneous Notes Plan of Care - Janeen Srivastava MSW - 09/10/2015 11:49 AM PDTPatient [facility] This CM faxed over the SNF transfer orders, PASRR, and RXs. All other documentation is placed in manila folder and in ghost chart. This CM spoke with Irena who states that she will look over the orders and call this write r back with a pick up driver time. Electronically signed by: HANNAH Contreras 09/10/2015 11:52 Spoke with Josephine who reported a pick up driver time of 1300. This Cm let patient [...] might be differe nt from the original. [facility] FACILITY TRANSFER ORDERS Patient Name: Shaila Son Patient : 1970 Gender: female Date of Admission: 09/01/2015 Date of Discharge: 09/10/2015 Admitting Provider: Marialuisa Roman MD Discharging Provider: Jose Carlos Albert MD Consultants: none PCP: Juan Holguin [facility] transferring to: [facility] Provider after transfer: Per SNF CODE STATUS: [x] Attempt CPR [] Do not resuscitate If patient is pulseless and not breathing, RN/MEDICAL RECEPTIONIST ASSISTANT may pronounce . Advanced Directives included: [] [...] for this patient. Diet: [] As tolerated WATER MAIN PIPE LAYER may upgrade or downgrade diet as condition [...] Whole [] Thin Liquids [] Cut-up [] [place] Thick [] Advanced Chopped [] Honey Thickened [] Chopped [] Advanced Ground [] 1:1 feedings [] Ground/Pureed [] Other: Tube Feedings: [] PEG [] GT [] JT [] NGT [] Formula type: (Radio Aerial Installer may change/substitute if indicated). [] Continuous Rate: [...] [x] OT Evaluation & Management for: [] WATER MAIN PIPE LAYER Evaluation &Management for: [] Other: Wound/Skin Care: [...] IJose Carlos MD, certify that post hospital mcfp care is medically nec essary on a continuing basis for any of the conditions for which he/she received care during this hospitalization. Check one: [x] Skilled [] Intermediate Additional Orders/Instructions: Physician's signature: 09/10/2015 11:13 [facility] N[facility] USE ONLY: [] Admitting orders verbally reviewed with Admitting Physician, modified where appropriate, and approved. Verbal Order from Date: Time: _ RN name: RN signature: [] Admitting orders reviewed, modified where appropriate, and approved. Physician's signature:____Jose Carlos Albert Date: _Time: lan of Care - [facility] Steve panda RN - 09/10/2015 8:06 AM [...] be managed to <4/10 by 09/06/2015. 3.) Shiala s electrolyte levels will improve by 09/06/2015. [...] weight-bearing History of Presenting Problem: Transfer from [facility], no records or labs available. P t unable to provide history. Reportedly stopped medications x 1 month ago. Hx 4L paracente sis @ [facility] 03/23; hx seizures, chronic anemia. Now- acute [...] for technique w/ IV pole Level of [place] : contact guard assist, verbal cues required Assistive Device: (IV stand) Distance (feet): 300 Transfers Using IV stand for support Sit-Stand, Level of [place]: supervision required Stand-Sit, Level of [place]: supervision required Uur-Isdmy-Vdu, Assistive Device: none Safety Issues: balance decreased during turns, step length decreased, loses balance backwar d Impairments: impaired balance, strength decreased, decreased flexibility, postural control impaired, muscle tone abnormal Bed Mobility Assistive Device: bed rails Supine to Sit, Level of [place]: minimum assist (75% patient effort) Sit to Supine, Level of [place]: modified independence Impairments: impaired balance, strength decreased [...] Activity Type: supine to sit/sit to supine [place] Level: independent Assistive Device: none Time to Achieve: 5 - 7 days Goal Status: progressing toward goal, revised Transfer Training Goal, Activity Type: sit to stand/stand to sit [place] Level: modified independence Assistive Device: 2 wheeled walker (FWW) Time to Achieve: 5 - 7 days Goal Status: progressing toward goal, revised Gait Training Goal, [place] Level: modified independence Assistive Device: 2 wheeled [...] FWW with SBA Ambulated an est 250'. RESEARCH PROGRAM COORDINATOR bro ught a different IV pole to provide safer ambulating with pole to/from bathroom. Pt report s and nursing confirms that pt is Independent in her room. Education: Safety with functional mobility Treatment Provided: ADL and functional mobility training. Patient Status/Goals Reflects last filed data of patient status; may be from multiple contributors. ADLs Grooming, Level of [place]: supervision required Assistive Device: none Grooming Assess/Train, [...] therapies. She stood at the sink to auto battery builder her te eth with supervision, Pt fatigued [...] overall everything was oka y. 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 Spiritual Intervention: Patient welcomed air conditioning specialist visit and I wished her good health. Spiritual Outcomes: Patient thank me for the visit. Spiritual Goals/Follow up: Juice Tester will continue to provide ongoing emotional/spirtiual support for patient as requested. lan of Car Juan Moore, WARP STARTER - 09/07/2015 12:49 PM PDTProblem: Patient Care [...] weight-bearing History of Presenting Problem: Transfer from [facility], no records or labs available. P t unable to provide history. Reportedly stopped medications x 1 month ago. Hx 4L paracente sis @ [facility] 03/23; hx seizures, chronic anemia. Now- acute [...] on L during initial contact. Level of [place] : supervision required Assistive Device: 2 wheeled walker (FWW) Distance (feet): 120 Transfers Sit-Stand, Level of [place]: supervision required Stand-Sit, Level of [place]: supervision required Hjq-Hbamb-Zzz, Assistive Device: 2 wheeled walker (FWW) Toilet, Assistive Device: none (recommend FWW as pt is slightly unsteady on her feet) Safety Issues: balance decreased during turns, step length decreased, loses balance backwar d Impairments: muscle tone abnormal, strength decreased, impaired balance, coordination impai red Bed Mobility Assistive Device: bed rails Supine to Sit, Level of [place]: modified independence Sit to Supine, Level of [place]: independent Impairments: impaired balance, strength decreased Balance [...] in lower legs and ankles STG GOALS [place] Level: independent Assistive Device: none Time to Achieve: 2 days Goal Status: new [place] Level: modified independence Assistive Device: 2 wheeled walker (FWW) Time to Achieve: 2 days Goal Status: new Gait Training Goal, [place] Level: modified independence Assistive Device: 2 wheeled [...] PTA, 09/07/2015 12:45 lan of Care - [facility] Paulina gonzalez OT - 09/07/2015 12:32 PM [...] from multiple contributors. ADLs LB, Level of [place]: supervision required, set up required LB Dressing [...] is medially stable for discharge. Cathie with [facility] does request for the doctor to include an order for Ativan PO and IM o n her SNF discharge order for possible Seizure activity. Otherwise no concerns with taking h er. Dr Lomas notified of the above information. Electronically signed by: Yumiko Anderson RN 09/06/2015 10:01 [facility] [place] notified patient will be medially stable for discharge tomorrow, Sunday , 09/07/2015. Patient also notified of the above information. Electronically signed by: Yumiko Anderson RN 09/06/2015 11:40 Updated doctor progress notes faxed to [facility] [place] per her request, fax # . Electronically [...] is a 45 y.o. who transferred from [facility], no records or labs available. Pt [...] stairs at home. Transfers Sit-Stand, Level of [place]: supervision required Toilet, Assistive Device: none (recommend FWW as pt is slightly unsteady on her feet) Safety Issues: balance decreased during turns, step length decreased, loses balance backwar d Impairments: muscle tone abnormal, strength decreased, impaired balance, coordination impai red Bed Mobility Assistive Device: bed rails Supine to Sit, Level of [place]: modified independence Sit to Supine, Level of [place]: independent Impairments: impaired balance, strength decreased Balance [...] in lower legs and ankles STG GOALS [place] Level: independent Assistive Device: none Time to Achieve: 2 days Goal Status: new [place] Level: modified independence Assistive Device: 2 wheeled walker (FWW) Time to Achieve: 2 days Goal Status: new Gait Training Goal, [place] Level: modified independence Assistive Device: 2 wheeled [...] Suzette Arcos OT, 09/05/2015 15:20 lan of [facility] - Yumiko Quevedo RN - 09/05/2015 1:33 PM PDTDischarge planning: This CM discussed with patient the option of going to a SNF for physical therapy Rehab. She agrees and would like to go to [place] as she is from [place] and family and friends could visit. If [place] does not have any beds available, she is open to [place]. Referral has been faxed to [place]. Yumiko Anderson RN 09/05/2015 12:23 lan of [facility] Steve Salamanca RN - 09/05/2015 5:09 [...] who presents to therapy for Transfer from [facility], no records or labs available. Pt unable to provid e history. Reportedly stopped medications x 1 month ago. Hx 4L paracentesis @ [facility] 03/23; hx seizures, chronic anemia. Now- acute [...] from multiple contributors. ADLs Toileting, Level of [place]: contact guard assist, verbal cues required, set up requir ed Assistive Device: grab bar Toileting Assess/Train, Position: sitting, supported standing Toileting Assess/Train, Impairments: impaired balance, strength decreased, coordination imp aired Cognitive Mood/Behavior: hypoactive (quiet, withdrawn), flat affect Orientation: oriented x 4 Speech: (very soft) Transfers Toilet, Level of [place]: contact guard assist, verbal cues required, set [...] alarm in place. lan of Care - [facility] Kristen chow RN - 09/03/2015 6:36 [...] neurologic deterior ation7. pain8. renal dysfunction9. respiratory [id number]. situational response Intervention: Promote Neurologic Homeostasis Patient [...] is the land line at [place] as there is no Cell p radha cashier receptionist out there) #[phone]). He said that the living situation is as follows. She has a room in her Aunt Angy's home located in [place], [place] that she doesn't use very o ften where four of her Cousins live as well. She normally lives with Edd in a mobile that is located below Aunt Angy's home. There are three steps leading to the entrance [facility]. Trixie Rose PA-C at the [facility] is her PCP. I called brian amaro and had them place her name on Shaila's chart. She uses the pharmacy located at [facility] first then uses the [place] [facility] second. She owns a cane, a four wheel walker, hand rails by the tub/shower and toilet, a hand held shower head and uses a metal fold up chair in the tub. She has used the [facility] for most of her DME and then would li ke to use [facility] located in [place], [place]. They said that [facility] would be fine if they would come out. They said that the four Cousins staying at Aunt [place] home are all drinking all the time. Edd said that his home would be a safe place for H H to visit though. Edd said that she would go back to [place] as her "Plan B" as she has [...] with her Drug and Alcohol Counselor, Andreia ([phone]), from [facility] and that she had helped arrange for her to come to [facility]. There was a questions as to whether [...] liquid diet w/ 1800 ml fluid restriction. VTM labs pending. Anticipate paracentesis today. documented in [...] PHYSICIAN: Calderon MADERA, Andres Pardo PATIENT NAME: KRISTI | [facility] | | SHAILA ALMEIDA [...] | | | preparation was performed by [facility] [id number] | | | [address] [place] [address] and [email or web address], [place] | | | [address] [place] [address]. Professional | | | interpretation was performed by [facility] | | | Center Branch - [address] [place] [address] (Medical | | | Director: Bebeto Ruiz M.D.; [facility]#:[id number]).8 Diagnostician: | | | Gladis Johnson M.S., KAVIN(ASCP), [facility] Game Trapper | | | Diagnostician: Bebeto Ruiz MD [...] [address] | [place] | [phone] | | [facility] | | [address] | | | - LABORATORY | | [...] [address] | [place] | [phone] | | [facility] | | [address] | | | - LABORATORY | | [...] 0.51 (L) | 0.60 - 1.30 | [facility] | | | | | mg/dL | [facility] | | | | | | MEDICAL | | | | | | CENTER - | | | | | | LABORATORY | | + + + + + + | eGFR, | >60Comment: GLOMERULAR | >=60 | [facility] | | | non- | FILTRATION | mL/min/1.73m2 | [facility] | | | [place] | RATE,ESTIMATED | | MEDICAL | | | | mL/min/1.54p0Lrgj than | | CENTER - | | [...] + | [address] | [address] | [place] | [phone] | | [facility] | | [address] | | | - LABORATORY | | [...] + + + | UNIT # | [id number] | | [facility] | | | | [...] [place] | | | [facility] | | [address] | | | - BLOOD BANK | [...] [address] | [place] | [phone] | | [facility] | | [address] | | | - LABORATORY | | [...] | | | | | mmol/L | [facility] | | | | | | MEDICAL | | | | | | CENTER - | | | | | | LABORATORY | | + + + + + + | K | 3.3 (L) | 3.5 - 5.1 | [facility] | | | | | mmol/L | [facility] | | | | | | MEDICAL [...] mL/min/1.73m2 | [facility] | | | [place] | RATE,ESTIMATED | | MEDICAL | | | | mL/min/1.29b4Wodr than | | CENTER - | | [...] [address] | [place] | [phone] | | [facility] | | [address] | | | - LABORATORY | | [...] ST. | [address] | [place], [place] | [phone] | | [facility] | | [address] | | | - LABORATORY | | [...] [address] | [place] | [phone] | | [facility] | | [address] | | | - LABORATORY | | [...] ST. | [address] | [place], [place] | [phone] | | [facility] | | [address] | | | - LABORATORY | | [...] | non- | FILTRATION | mL/min/1.73m2 | [facility] | | | [place] | RATE,ESTIMATED | | MEDICAL | | | | mL/min/1.14h3Rzsu than | | CENTER - | | [...] | | | | | mg/dL | [facility] | | | | | | [...] [address] | [place] | [phone] | | [facility] | | [address] | | | - LABORATORY | | [...] [address] | [place] | [phone] | | [facility] | | [address] | | | - LABORATORY | | | | + + + + + Surgical Pathology Exam (09/08/2015 12:00 AM PDT) + + | Specimen | + + | Soft tissue sample | | (specimen) | + + + + + | Narrative | Performed At | + + + | SPECIMEN(S): A LIVER NEEDLE BIOPSY SPECIMEN SOURCE: A. LIVER | [facility] | | NEEDLE BIOPSY CLINICAL HISTORY: [...] may not be | | | fully loan representative should be considered. Noninvasive MRI studies | | | may help to further characterize the lesion if clinical concern | | | remains. Results discussed with Dr. Albert by Dr. More on | | | September 09 at 3:10 p.m. [facility]:C2NR GROSS DESCRIPTION: The specimen, | | | [...] for | | | neoplastic hepatocellular nodules. [facility] PERFORMING LABORATORY: | | | Tissue processing and slide preparation were performed by [employer] | | | [employer], [address] [place] [address], [address], [place] [address] | | | (Fire Pilot: Bebeto Ruiz M.D.; CLIA#: [id number]). | | | Professional interpretation was performed by vitaMedMD[facility]ed | | | [facility], [address] [place], | | | [place] [address] (Fire Pilot: Jonny Ernandez M.D.; [facility]#: | | | [id number]). Diagnostician: Ana M Holm MD Pathologist | [...] | | | | | | Performed: [place] | | | | | | [facility] | | | | | | [place], [address], | | | | | | [place] [address] | | | | + + + [...] [address] | [place] [address] | [phone] | + + + + + PTT [...] [address] | [place] | [phone] | | [facility] | | [address] | | | - LABORATORY | | [...] + | [facility] | [address] | [place] | [phone] | | [facility] | | [address] | | | - LABORATORY | | [...] [address] | [place] | [phone] | | [facility] | | [address] | | | - LABORATORY | | [...] mL/min/1.73m2 | [facility] | | | German | RATE,ESTIMATED | | MEDICAL | | | | mL/min/1.55p0Bkgf than | | CENTER - | | [...] + | [facility] | [address] | [place] | [phone] | | [facility] | | [address] | | | - LABORATORY | | [...] + + + | UNIT # | [id number] | | [facility] | | | | [...] [place] | | | [facility] | | [address] | | | - BLOOD BANK | [...] | | | report was sent by [employer] [facility] on 09/06/2015 at 7:03 PM with no [...] | | preliminary report was sent by [employer] on 09/06/2015 at 7:03 PM with | [...] | |A preliminary report was sent by [employer] on 09/06/2015 at 7:03 PM with no [...] [address] | [place] | [phone] | | [facility] | | [address] | | | - LABORATORY | | [...] 7 | 7 - 18 mg/dL | [facility] | | | | | | [facility] | | | | | | MEDICAL | | | | | | CENTER - | | | | | | LABORATORY | | + + + + + + | Creatinine | 0.59 (L) | 0.60 - 1.30 | [facility] | | | | | mg/dL | [facility] | | | | | | MEDICAL | | | | | | CENTER - | | | | | | LABORATORY | | + + + + + + | eGFR, | >60Comment: GLOMERULAR | >=60 | [facility] | | | non- | FILTRATION | mL/min/1.73m2 | [facility] | | | [place] | RATE,ESTIMATED | | MEDICAL | | | | mL/min/1.12k0Fxfm than | | CENTER - | | [...] + | [facility] | [address] | [place], [place] | [phone] | | [facility] | | [address] | | | - LABORATORY | | [...] [place] | | | [facility] | | [address] | | | - BLOOD BANK | [...] + + + | UNIT # | [id number] | | [facility] | | | | [...] [place] | | | [facility] | | [address] | | | - BLOOD BANK | [...] + + + | UNIT # | [id number] | | [facility] | | | | [...] ST. | [address] | [place] | | | [facility] | | [address] | | | - BLOOD BANK | [...] [address] | [place] | [phone] | | [facility] | | [address] | | | - LABORATORY | | [...] (L) | 7 - 18 mg/dL | [place] | | | | | | [facility] | | | | | | MEDICAL | | | | | | CENTER - | | | | | | LABORATORY | | + + + + + + | Creatinine | 0.72 | 0.60 - 1.30 | [place] | | | | | mg/dL | [facility] | | | | | | MEDICAL | | | | | | CENTER - | | | | | | LABORATORY | | + + + + + + | eGFR, | >60Comment: GLOMERULAR | >=60 | [place] | | | non- | FILTRATION | mL/min/1.73m2 | [facility] | | | [place] | RATE,ESTIMATED | | MEDICAL | | | | mL/min/1.86p1Ucnv than | | CENTER - | | [...] + | [facility] | [address] | [place] | [phone] | | [facility] | | [address] | | | - LABORATORY | | [...] + | [facility] | [address] | [place] | [phone] | | [facility] | | [address] | | | - LABORATORY | | [...] ST. | [address] | [place] | [phone] | | [facility] | | [address] | | | - LABORATORY | | [...] [address] | [place] | [phone] | | [facility] | | [address] | | | - LABORATORY | | [...] (L) | 7 - 18 mg/dL | [place] | | | | | | [facility] | | | | | | MEDICAL | | | | | | CENTER - | | | | | | LABORATORY | | + + + + + + | Creatinine | 0.54 (L) | 0.60 - 1.30 | [facility] | | | | | mg/dL | [facility] | | | | | | MEDICAL | | | | | | CENTER - | | | | | | LABORATORY | | + + + + + + | eGFR, | >60Comment: GLOMERULAR | >=60 | [facility] | | | non- | FILTRATION | mL/min/1.73m2 | [facility] | | | [place] | RATE,ESTIMATED | | MEDICAL | | | | mL/min/1.97o7Cafy than | | CENTER - | | [...] [address] | [place] | [phone] | | [facility] | | [address] | | | - LABORATORY | | [...] ST. | [address] | [place] | [phone] | | [facility] | | [address] | | | - LABORATORY | | [...] | | | | | | | [id number] | | | | | | Source [...] | | | | | | [place] | | | | | | [facility], [address] | | | | | | [address] [place], [place] [address] [address] | | | | + + + [...] [address] | [place] [address] | [phone] | + + + + + Ammonia [...] [address] | [place] | [phone] | | [facility] | | [address] | | | - LABORATORY | | [...] mL/min/1.73m2 | [facility] | | | [place] | RATE,ESTIMATED | | MEDICAL | | | | mL/min/1.21g5Sbqv than | | CENTER - | | [...] + | [facility] | [address] | [place] | [phone] | | [facility] | | [address] | | | - LABORATORY | | [...] [address] | [place] | [phone] | | [facility] | | [address] | | | - LABORATORY | | | | + + + + + Medical Cytology (09/03/2015 12:00 AM PDT) + + | Specimen | + + | | + + + + + | Narrative | Performed At | + + + | ORDERING PHYSICIAN: Grant Lomas MD PATIENT NAME: [facility] [facility] | | SHAILA ALMEIDA GENDER: Romulo [...] | | | interpretation was performed by vita[facility] - [facility] | | | [facility] - [address] [place] [address] (Medical | | | Director: Bebeto Ruiz M.D.; [facility]#:[id number]).8 Technical | | | preparation was performed by [facility]Med[facility] [address] [facility] [address] [facility] [address] | | | [address] [place] [address] and [facility], [place] | | | [address] [place] [address]. Diagnostician: | | | Gladis Johnson M.S., KAVIN([facility]), [facility] Game Trapper | | | Diagnostician: Ana M Holm [...] sam was made to accommodate the 8 Martiniquais paracentesis trocar | | | catheter, which [...] lidocaine utilized for localanesthesia. A small skin asm was made to accommodate the 8 | | Martiniquais paracentesistrocar catheter, which were advanced into the [...] + + | Performing | Address | City/State/[facility] | Phone Number | | Organization | [...] | | | | | | | [id number] | | | | | | Source [...] | | | | | | [place] | | | | | | [facility], [address] | | | | | | [place] [address] | | | | + + + [...] [address] | [place] [address] | [phone] | + + + + + Culture, [...] + | [facility] | [address] | [place] | [phone] | | [facility] | | [address] | | | - LABORATORY | | [...] ST. | [address] | [place], [place] | [phone] | | [facility] | | [address] | | | - LABORATORY | | [...] [address] | [place] | [phone] | | [facility] | | [address] | | | - LABORATORY | | [...] [address] | [place] | [phone] | | [facility] | | [address] | | | - LABORATORY | | [...] [address] | [place] | [phone] | | [facility] | | [address] | | | - LABORATORY | | [...] + + + | Color, Body | [facility] | | [facility] | | | Fluid [...] [address] | [place] | [phone] | | [facility] | | [address] | | | - LABORATORY | | [...] [place] | | | | | | [address] | | | | + + + [...] [address] | [place] [address] | [phone] | + + + + + Ferritin [...] + | [facility] | [address] | [place] | [phone] | | [facility] | | [address] | | | - LABORATORY | | [...] [address] | [place] | [phone] | | [facility] | | [address] | | | - LABORATORY | | [...] + | [facility] | [address] | [place] | [phone] | | [facility] | | [address] | | | - LABORATORY | | [...] [address] | [place] | [phone] | | [facility] | | [address] | | | - LABORATORY | | [...] [address] | [place] | [phone] | | [facility] | | [address] | | | - LABORATORY | | [...] [place] | | | | | | [address] | | | | + + + [...] [facility] | [address] | [place] [address] | [phone] | + + + + + Loreime [...] [address] | [place] | [phone] | | [facility] | | [address] | | | - LABORATORY | | [...] ST. | [address] | [place] | [phone] | | [facility] | | [address] | | | - LABORATORY | | [...] [address] | [place] | [phone] | | [facility] | | [address] | | | - LABORATORY | | [...] (L) | 7 - 18 mg/dL | [facility] | | | | | | [facility] | | | | | | MEDICAL | | | | | | CENTER - | | | | | | LABORATORY | | + + + + + + | Creatinine | 0.54 (L) | 0.60 - 1.30 | [facility] | | | | | mg/dL | [facility] | | | | | | MEDICAL | | | | | | CENTER - | | | | | | LABORATORY | | + + + + + + | eGFR, | >60Comment: GLOMERULAR | >=60 | [facility] | | | non- | FILTRATION | mL/min/1.73m2 | [facility] | | | [place] | RATE,ESTIMATED | | MEDICAL | | | | mL/min/1.02y5Bdgr than | | CENTER - | | [...] ST. | [address] | [place] | [phone] | | [facility] | | [address] | | | - LABORATORY | | [...] [address] | [place] | [phone] | | [facility] | | [address] | | | - LABORATORY | | [...] [address] | [place] | [phone] | | [facility] | | [address] | | | - LABORATORY | | [...] - 1.030 | [facility] | | | [place], | | | [facility] | | [...] [address] | [place] | [phone] | | [facility] | | [address] | | | - LABORATORY | | | | + + + + + Medical Cytology (09/02/2015 12:00 AM PDT) + + | Specimen | + + | | + + + + + | Narrative | Performed At | + + + | ORDERING PHYSICIAN: Grant Lomas MD PATIENT NAME: [facility] PATHOLOGY | | SHAILA ALMEIDA GENDER: Romulo [...] | | | interpretation was performed by vitaMed[facility] | | | [facility] - [address] [place] [address] (Medical | | | Director: Bebeto Ruiz M.D.; CLIA#:[id number]).8 Technical | | | preparation was performed by vitaMedMD [facility] [address] | | | [place] [address] and [facility] | | | [address] [facility] [place] [address]. Diagnostician: | | | Gladis Johnson M.S., CT([facility]), [facility] Game Trapper | | | Diagnostician: Ana M Holm MD Pathologist Electronically | | | Signed 09/03/2015 | | + + + + +---------+ + + | Performing | Address | City/State/[facility] | Phone Number | | Organization | [...] | | Blood in | | | [facility] | | | 3rd | | | [...] + | [facility] | [address] | [place] | [phone] | | [facility] | | [address] | | | - LABORATORY | | [...] [address] | [place] | [phone] | | [facility] | | [address] | | | - LABORATORY | | [...] + | [facility] | [address] | [place] | [phone] | | [facility] | | [address] | | | - LABORATORY | | [...] 0.48 (L) | 0.60 - 1.30 | [facility] | | | | | mg/dL | [facility] | | | | | | MEDICAL | | | | | | CENTER - | | | | | | LABORATORY | | + + + + + + | eGFR, | >60Comment: GLOMERULAR | >=60 | [facility] | | | non- | FILTRATION | mL/min/1.73m2 | [facility] | | | [place] | RATE,ESTIMATED | | MEDICAL | | | | mL/min/1.71o5Fmdc than | | CENTER - | | [...] [address] | [place] | [phone] | | [facility] | | [address] | | | - LABORATORY | | [...] [address] | [place] | [phone] | | [facility] | | [address] | | | - LABORATORY | | [...] [place] | | | [facility] | | [address] | | | - BLOOD BANK | [...] | | chromogenic agar method | | [facility] | | | | | | [...] [address] | [place] | [phone] | | [facility] | | [address] | | | - LABORATORY | | [...]
--- OUTSIDE RECORDS SUMMARY | ~2020-01-12 | XMS | Encounter Summary ---
Demographics + + + | Address | [address] | | | [place] [address] | + + + | Home Phone | | + + + | Preferred Language | Unknown | + + + | Marital Status | Single | + + + | Druze Affiliation | 1041 | + + + | Race | or | + + + | Ethnic Group | Not or | + + + Author + + + | Author | [facility] | | | and [place] | + + + | Organization | [facility] | | | and [place] | + + + | Address | Unknown | + + + | Phone | Unavailable | + + + Support + + + + + | Name | Relationship | Address | Phone | + + + + + | Joanne Pham | ECON | [address] | | | | | [place] | | | | | [address] | | + + + + + | Viktor Son | EDDIE | Unknown | | + + + + + | Edd Gill | ECON | Unknown | | + + + + + | Conner Barber | ECON | Unknown | | + + + + + Care Team Providers + +------+ + | Care Faculty Neuropsychologist Name | Role | Phone | + +------+ + PCP | Unavailable | + +------+ + Encounter Details +--------+ + + + + | Date | Type | Department | Care Team | Description | +--------+ + + + + | 10/04/ | Hospital | [facility] | Carmen, | Alcohol withdrawal | | 2015 - | Encounter | [facility] [address] | MD [address] | seizure, | | | | [address] | [address] | uncomplicated (HCC); | | 10/07/ | | [place], [place] | [place] [address] | Urinary tract | | 2014 | | [address] | [phone] | infection with | | | | [phone] | | hematuria, site | | | | | | unspecified; Hepatic | | | | | | encephalopathy | | | | | | ([facility]); Anemia, | | | | | | unspecified anemia | | | | | | type; | | | | | | Thrombocytopenia | | | | | | ([facility]); | | | | | | Lymphocytopenia; | | | | | | Delirium tremens | | | | | | ([facility]); Alcohol | | | | | | abuse; 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 She was transferred to [facility]. She was found to have elevated [...] She was [facility]. 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 You may get the following medications [...] Note by Flora Seaman RN at 10/07/14 3482 Author: Flora Seaman RN Service: (none) Author Type: Registered Nurse Filed: 10/07/14 1200 Date of Service: 10/07/14 0857 Status: Signed Obiee Obia Solution Architect: Flora Seaman RN (Registered Nurse) Pt. D/C [...] 10/06/14826 Date of Service: 10/06/14817 Status: Signed Obiee Obia Solution Architect: Precious Miller MD (Physician) [facility] Service: Hospitalist Progress Note SUBJECTIVE Patient Summary: 44 y/o F with h/o alcohol dependence, cirrhosis transferred from [facility] on 10/05 with alcohol withdrawl seizure and [...] Management to discuss alcohol rehab options with mayco ent. 3. UTI- no fever overnight. Urine [...] Management by Fortino Argueta RN at 10/05/14 1739 Author: Fortino Argueta RN Service: (none) Author Type: Acquisition Advisor Filed: 10/05/14 2669 Date of Service: 10/05/14 3362 Status: Signed Obiee Obia Solution Architect: Fortino Argueta RN (Acquisition Advisor) Met with Shaila to discuss DC plans. She is planning to go home with her family. She denies home medical equipment, or any outpatient medical services such as dialysis or coumadin cli woody. 10/05/14 9391 Discharge Planning Evaluation Admitting Diagnosis Seizure /ETOH [...] No Prescription Plan Yes Name of Pharmacy [facility] Previous home health equipment No Vascular access device No Ostomy/Drains/Appliances No Anticipated Disposition Facility Type Home Medicare Important Message (DEIDRE) Not applicable Met with: Shaila and discussed discharge planning, Pt is a 44 y.o., female Patient's PCP is: Efra Holguin Patient's insurance: Medicaid and [facility]--she has an appt there . Coverage concerns: [...] 0839 Date of Service: 10/05/1437 Status: Signed Obiee Obia Solution Architect: Yamileth Orozco RN (Registered Nurse) Patient somnolent [...] 10/05/14826 Date of Service: 10/05/14809 Status: Signed Obiee Obia Solution Architect: Jacob Larios MD (Physician) [facility] Service: Hospitalist Progress Note Hospital [...] ago. Apparently today she went to the [facility] and that the last thing she remembers before blacking out. Whe n she recovered consciousness she was in the hospital. Apparently the patient had Blease to seizures and generalized tonic-clonic in nature. The patient did receive Ativan and due to the multiple comorbidities the patient was transfer to [facility] for further management. 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, found to be febrile and transferred [...] to be a post ictal at the [facility], did receive IV lorazepam - Presently patient [...] 10/05/14524 Date of Service: 10/05/14524 Status: Signed Obiee Obia Solution Architect: Vandana Mcnally RPH (Pharmacist) Clinical Pharmacy Note: Renal Monitoring & Extended Interval Zosyn Dosing Shaila Son 44 y.o. female Height: 170.2 cm Weight: 61.8 kg CREATININE: 0.82 (10/05/14 0150) Estimated creatinine clearance - 86 mL/min NEUTROPHILS ABS Date Value Ref Range Status 10/05/2014 3.16 1.90 - 7.40 K/uL Final Comment: Testing performed at [facility];[address] [place] [address];[place] [address] Pharmacy dosing for renal function per Dr. [...] Date of Service: 10/05/14 030 Status: Signed Obiee Obia Solution Architect: Deonte Morales MD (Physician) [facility] Service: Hospitalist Admission History & [...] ago. Apparently [facility] and that the last thing she remembers before blacking out. Whe n she recovered consciousness she was in the hospital. Apparently the patient had Blease to seizures and generalized tonic-clonic in nature. The patient did receive Ativan and due to the multiple comorbidities the patient was transfer to [facility] for further management. Of n ote [...] ESOPHAGOGASTRODUODENOSCOPY; Surgeon: Mitchell Stewart IV, MD; Location: [facility]; Service: Gastroenterology; Laterality: N/A; anesthesia [...] to recall, this information came from [facility] record Lactose Anaphylaxis Pt unable to recall, this information came from [facility] record Ciprofloxacin Other (See Comments) Pt. Unable to recall, this information came from [facility] record Ibuprofen Other (See Comments) Pt. Unable to recall, this information came from [facility] record (Not in a hospital admission) [...] Value Units Date/Time Blood Culture Set 2 [[id number]] Collected: 10/05/14149 Specimen Information: Blood / Blood Updated: 10/05/14300 Blood Culture Set 1 [[id number]] Collected: 10/05/14149 Specimen Information: Blood / Blood Updated: 10/05/14300 hCG, serum, qualitative [[id number]] Collected: 10/05/14149 Specimen Information: Blood Updated: 10/05/14238 TEST,SERUM NEGATIVE Basic Metabolic Panel [[id number]] (Abnormal) Collected: 10/05/14149 Specimen Information: Blood Updated: 10/05/14238 SODIUM 140 mmol/L POTASSIUM 3.4 (L) mmol/L CHLORIDE 105 mmol/L CO2 24 mmol/L ANION GAP AGAP 14 mmol/L GLUCOSE 99 mg/dL BUN 8 mg/dL CREATININE 0.82 mg/dL BUN/CREAT 9 CALCIUM 8.2 (L) mg/dL EGFR >60 mL/min/1.73m2 CBC with differential [[id number]] (Abnormal) Collected: 10/05/14149 Specimen Information: Blood Updated: [...] BASOPHILS ABS 0.05 K/uL MRSA by PCR [[id number]] Collected: 10/04/14 2352 Specimen Information: Nasopharyngeal / Nares(Nose) Updated: 10/05/14 0111 SOURCE NARES(NOSE) MRSA PCR NEGATIVE labs from [facility] shows White blood cell 2.5, hemoglobin of [...] who presents with Fever, seizures. Transfer from [facility]. Negative signs of meningismus a t physical [...] prognosis poor unless Patient stop alcohol use. Executive Legal Secretary consult to see the p atient will [...] Procedures by Ricky BarraganEEG/EP T. at 10/05/14 2560 Author: Ricky BarraganEEG/EP TDania Service: Neurology Author Type: Registered EEG and Evoked Potential Tech Filed: 10/05/14 1348 Date of Service: 10/05/141347 Status: Signed Obiee Obia Solution Architect: Ricky BarraganEEG/EP TDania (Registered EEG and Evoked Potential Tech) Procedure Orders: 1. EEG [[id number]] ordered by Deonte Morales MD at 10/05/14 0343 EEG REPORT Patient: Shaila Son ID: [id number] : 1970 [age]: [age] Gender: Female Height: Weight: Physician: Marjorie Simmons MD Inventory Control Assistant: Juan Referring Physician: Carmen Recording Date: 10/05/2014 [...] 10/05/14318 Date of Service: 10/05/14318 Status: Signed Obiee Obia Solution Architect: Xu Villanueva RN (Registered Nurse) Dr. Raines (hospitalist) at bedside. Xu Villanueva RN 10/05/14318 onver miriam Transaction, Provider Unknown - 10/05/2014 1:44 AM PDT ED Notes by Xu Villanueva RN at 10/05/14143 Author: Xu Villanueva RN Service: Emergency Department Author Type: Registered Nurse Filed: 10/05/14143 Date of Service: 10/05/14143 Status: Signed Obiee Obia Solution Architect: Xu Villanueva RN (Registered Nurse) Lab at bedside Xu Villanueva RN 10/05/14143 onver miriam Transaction, Provider Unknown - 10/05/2014 1:05 AM PDT ED Notes by Xu Villanueva RN at 10/05/14 0105 Author: Xu Villanueva RN Service: Emergency Department Author Type: Registered Nurse Filed: 10/05/14105 Date of Service: 10/05/14104 Status: Signed Obiee Obia Solution Architect: Xu Villanueva RN (Registered Nurse) Lab called [...] 10/04/142343 Date of Service: 10/04/142343 Status: Signed Obiee Obia Solution Architect: Xu Villanueva RN (Registered Nurse) Lab called for blood draw, cultures x2 Xu Villanueva RN 10/04/142343 hitak Leonarda gonzalez DO - 10/04/2014 11:18 PM PDTFormatting of this note might be different from the o riginal. ED Provider Notes by Leonarda Rich DO at 10/04/142317 Author: Leonarda Rich DO Service: Emergency Department Author Type: Physician Filed: 10/06/14 1507 Date of Service: 10/04/142317 Status: Signed Obiee Obia Solution Architect: Leonarda Rich DO (Physician) Procedures Additional Documentation Procedures [facility] Department of Emergency Medicine Pre-arrival [...] with Seizures Patient presents in transfer from [facility]. She was found down, but with breathing and pulse [place] a [place]. Evidently had a seizure. Unknown if she struck her head. She is presently complain ing of a headache. She had 2 more seizures at [facility], was treated with ativan, and has had [...] ESOPHAGOGASTRODUODENOSCOPY; Surgeon: Mitchell Stewart IV, MD; Location: [facility]; Service: Gastroenterology; Laterality: N/A; anesthesia [...] to recall, this information came from [facility] record Lactose Anaphylaxis Pt unable to recall, this information came from [facility] record Ciprofloxacin Other (See Comments) Pt. Unable to recall, this information came from [facility] record Ibuprofen Other (See Comments) Pt. Unable to recall, this information came from [facility] record History Social History Marital Status: [...] a lymphocytopenia, H/H 9.7/31.1 [place] [address] - moderate th rombocytopenia CMP Glucose 89, [...] technique. [facility] is still in withdrawals[facility] She requires admission as this appears to be a combination of withdrawals seizures, sepsis, and hepatic encephalopathy. Blood culture s have been drawn, urine culture was done at [facility]. I have ordered vancomycin and cef triaxone for her urinary tract infection. I have discussed the case with Dr. Raines who accepts the patient for admission to the [facility] service. I reviewed the results of the diagnostic studies with the patient. Explain ed the reason for admission and the admission process. Explained the admission process and t he reason for admission. Records Reviewed Old medical records. Nursing notes. Patient was seen in the emergency department at [facility] and transferred here. Review of lab which [...] Ref Range Date/Time Blood Culture Set 1 [[id number]] Collected: 10/05/14 0150 Order Status: Completed Updated: 10/06/14834 Specimen Information: Blood / Blood Specimen Description BLOOD SPECIAL REQUESTS LH SPECIAL REQUESTS Result: Testing performed at [facility];[address], [place] [address] CULTURE NO GROWTH CULTURE Result: Testing performed at [facility], [address] [place] [address] Blood Culture Set 2 [[id number]] Collected: 10/05/14149 Order Status: Completed Updated: 10/06/14834 Specimen Information: Blood / Blood Specimen Description BLOOD SPECIAL REQUESTS RH SPECIAL REQUESTS Result: Testing performed at [facility];[address] [place] [address] CULTURE NO GROWTH CULTURE Result: Testing performed at [facility], [address] [place] [address] hCG, serum, qualitative [[id number]] Collected: 10/05/14149 Order Status: Completed Updated: 10/05/14238 Specimen Information: Blood TEST,SERUM NEGATIVE NEGATIVE Basic Metabolic Panel [[id number]] (Abnormal) Collected: 10/05/14149 Order Status: Completed Updated: [...] EGFR >60 >60 mL/min/1.73m2 CBC with differential [[id number]] (Abnormal) Collected: 10/05/14149 Order Status: Completed Updated: [...] 0.00 - 0.10 K/uL MRSA by PCR [[id number]] Collected: 10/04/14 2352 Order Status: Completed Updated: [...] 05 2014 1:19AM Referring Provider Keri ne: [phone] ID: [id number] Narrative: EXAM: CT HEAD AND [...] Notes by Xu Villanueva RN at 10/04/14 3161 Author: Xu Villanueva RN Service: Emergency Department Author Type: Registered Nurse Filed: 10/04/142250 Date of Service: 10/04/142250 Status: Signed Obiee Obia Solution Architect: Xu Villanueva RN (Registered Nurse) Dr. Rich informed of the pt's fever. Xu Villanueva RN 10/04/142250 onver miriam Transaction, Provider Unknown - 10/04/2014 10:46 PM PDT ED Notes by Xu Villanueva RN at 10/04/142245 Author: uX Villanueva RN Service: Emergency Department Author Type: Registered Nurse Filed: 10/04/142246 Date of Service: 10/04/142245 Status: Signed Obiee Obia Solution Architect: Xu Villanueva RN (Registered Nurse) Patient placed on cardiac monitoring. medical technologist clinical called, informed of patient. Xu Villanueva RN 10/04/142246 onver miriam Transaction, Provider Unknown - 10/04/2014 10:29 PM PDT ED Notes by Xu Villanueva RN at 10/04/142228 Author: Xu Villanueva RN Service: Emergency Department Author Type: Registered Nurse Filed: 10/04/142246 Date of Service: 10/04/142228 Status: Signed Obiee Obia Solution Architect: Xu Villanueva RN (Registered Nurse) Patient identifiers checked x2. Patient gowned, bed rails up x1, call light within reach. P tatiana of care discussed, care board updated. uX Villanueva RN 10/04/142246 onver miriam Transaction, Provider Unknown - 10/04/2014 10:27 PM PDT ED Notes by Jeremi Cai RN at 10/04/142226 Author: Jeremi Cai RN Service: (none) Author Type: Registered Nurse Filed: 10/04/142226 Date of Service: 10/04/142226 Status: Signed Obiee Obia Solution Architect: Jeremi Cai RN (Registered Nurse) Bed: 12 Expected date: Expected time: Means of arrival: Comments: [place] transfer onver miriam Transaction, Provider Unknown - 10/04/2014 10:04 PM PDT ED Notes by Jodie Cowan RN at 10/04/142203 Author: Jodie Cowan RN Service: (none) Author Type: Registered Nurse Filed: 10/04/142204 Date of Service: 10/04/142203 Status: Signed Obiee Obia Solution Architect: Jodie Cowan RN (Registered Nurse) Pt stable en route to facility per [facility]. VS: 145/77, 97, 18, 96% on RA Jodie Cowan RN 10/04/142204 onver miriam Transaction, Provider Unknown - 10/04/2014 9:12 PM PDT ED Notes by Prince Anand RN at 10/04/142111 Author: Prince Anand RN Service: (none) Author Type: Registered Nurse Filed: 10/04/142118 Date of Service: 10/04/142111 Status: Signed Obiee Obia Solution Architect: Prince Anand RN (Registered Nurse) Patient was reported by EMS found down at the [facility] in [place]. RN at [facility] the patient has history of seizures, completely [...] 10/07/14712 Date of Service: 10/07/14712 Status: Signed Obiee Obia Solution Architect: Jelly Moreno RN (Registered Nurse) Call light [...] EXTERNAL | | | | performed at [facility] | | LAB | | | | [address];[place] | | | | | | [address] | | | | + + + [...] EXTERNAL | | | | performed at [facility];[address] | mmol/L | LAB | | | | [address];[place] | | | | | | [address] | | | | + + + + + + | K | 4.1Comment: Testing | 3.5 - 4.9 | EXTERNAL | | | | performed at [facility];[address] | mmol/L | LAB | | | | [address];[place] | | | | | | [address] | | | | + + + + + + | Cl | 108Comment: Testing | 99 - 109 mmol/L | EXTERNAL | | | | performed at [facility];[address] | | LAB | | | | [address];[place] | | | | | | [address] | | | | + + + + + + | CO2 | 20 (L)Comment: Testing | 23 - 32 mmol/L | EXTERNAL | | | | performed at [facility];[address] | | LAB | | | | [address];[place] | | | | | | [address] | | | | + + + + + + | Anion Gap | 13Comment: Testing | 5 - 20 mmol/L | EXTERNAL | | | | performed at [facility];[address] | | LAB | | | | [address];[place] | | | | | | [address] | | | | + + + + + + | Glucose, | 91Comment: Testing | 65 - 99 mg/dL | EXTERNAL | | | Fasting | performed at [facility];[address] | | LAB | | | | [address];[place] | | | | | | [address] | | | | + + + + + + | BUN | 6 (L)Comment: Testing | 8 - 25 mg/dL | EXTERNAL | | | | performed at [facility];[address] | | LAB | | | | [address];[place] | | | | | | [address] | | | | + + + + + + | Creatinine | 0.96Comment: Testing | 0.50 - 1.00 | EXTERNAL | | | | performed at [facility];[address] | mg/dL | LAB | | | | [address];[place] | | | | | | [address] | | | | + + + + + + | BUN/Creatin | 7Comment: Testing | | EXTERNAL | | | ine Ratio | performed at [facility];[address] | | LAB | | | | [address];[place] | | | | | | [address] | | | | + + + + + + | Calcium | 8.3 (L)Comment: Testing | 8.5 - 10.5 | EXTERNAL | | | | performed at [facility];[address] | mg/dL | LAB | | | | [address];[place] | | | | | | [address] | | | | + + + [...] | | | | | | at [facility];[address] | | | | | | [address];[place] [address] | | | | + + + [...] EXTERNAL | | | | performed at [facility], [address] | K/uL | LAB | | | | [address], | | | | | | [place] [address] | | | | + + + + + + | Non- | 3.32 (L)Comment: Testing | 3.70 - 5.10 | EXTERNAL | | | Red Blood | performed at [facility], [address] | M/uL | LAB | | | Cells | [address], | | | | | Counted | [place] [address] | | | | + + + + + + | Hemoglobin | 9.7 (L)Comment: Testing | 11.3 - 15.5 | EXTERNAL | | | | performed at [facility], [address] | g/dL | LAB | | | | [address], | | | | | | [place] [address] | | | | + + + + + + | Hematocrit, | 30.4 (L)Comment: Testing | 34.0 - 46.0 % | EXTERNAL | | | POC | performed at [facility], [address] | | LAB | | | | [address], | | | | | | [place] [address] | | | | + + + + + + | MCV | 91.5Comment: Testing | 80.0 - 100.0 fl | EXTERNAL | | | | performed at [facility], [address] | | LAB | | | | [address], | | | | | | [place], [place] [address] | | | | + + + + + + | MCH | 29.4Comment: Testing | 27.0 - 34.0 pg | EXTERNAL | | | | performed at [facility], [address] | | LAB | | | [address], | | | | | | [place] [address] | | | | + + + + + + | MCHC | 32.1Comment: Testing | 32.0 - 35.5 | EXTERNAL | | | | performed at [facility], [address] | g/dL | LAB | | | | [address], | | | | | | [place] [address] | | | | + + + + + + | RDW-CV | 50.8Comment: Testing | 37 - 53 fl | EXTERNAL | | | | performed at [facility], [address] | | LAB | | | | [address], | | | | | | [place] [address] | | | | + + + + + + | Platelet | 66 (L)Comment: Testing | 150 - 400 K/uL | EXTERNAL | | | Count | performed at [facility], [address] | | LAB | | | Plasma | [address], | | | | | | [place] [address] | | | | + + + + + + | MPV | 9.0Comment: Testing | fl | EXTERNAL | | | | performed at [facility], [address] | | LAB | | | | [address], | | | | | | [place] [address] | | | | + + + [...] EXTERNAL | | | | performed at [facility];[address] | | LAB | | | | [address];[place], [place] | | | | | | [address] | | | | + + + [...] | | | | | [place] [address] | | | | + + + + + + | K | 3.5Comment: Testing | 3.5 - 4.9 | EXTERNAL | | | | performed at [facility], [address] | mmol/L | LAB | | | | [address], | | | | | | [place] [address] | | | | + + + + + + | Cl | 104Comment: Testing | 99 - 109 mmol/L | EXTERNAL | | | | performed at [facility], [address] | | LAB | | | | [address], | | | | | | [place] [address] | | | | + + + + + + | CO2 | 23Comment: Testing | 23 - 32 mmol/L | EXTERNAL | | | | performed at [facility], [address] | | LAB | | | | [address], | | | | | | [place] [address] | | | | + + + + + + | Anion Gap | 8Comment: Testing | 5 - 20 mmol/L | EXTERNAL | | | | performed at [facility], [address] | | LAB | | | [address], | | | | | | [place] [address] | | | | + + + + + + | Glucose, | 100 (H)Comment: Testing | 65 - 99 mg/dL | EXTERNAL | | | Fasting | performed at [facility], [address] | | LAB | | | | [address], | | | | | | [place] [address] | | | | + + + + + + | BUN | 6 (L)Comment: Testing | 8 - 25 mg/dL | EXTERNAL | | | | performed at [facility], [address] | | LAB | | | | [address], | | | | | | [place] [address] | | | | + + + + + + | Creatinine | 0.57Comment: Testing | 0.50 - 1.00 | EXTERNAL | | | | performed at [facility], [address] | mg/dL | LAB | | | | [address], | | | | | | [place] [address] | | | | + + + + + + | BUN/Creatin | 11Comment: Testing | | EXTERNAL | | | ine Ratio | performed at [facility], [address] | | LAB | | | | [address], | | | | | | [place] [address] | | | | + + + + + + | Calcium | 7.9 (L)Comment: Testing | 8.5 - 10.5 | EXTERNAL | | | | performed at [facility], [address] | mg/dL | LAB | | | | [address], | | | | | | [place] [address] | | | | + + + + + + | Protein, | 6.4Comment: Testing | 6.3 - 8.2 g/dL | EXTERNAL | | | Total | performed at [facility], [address] | | LAB | | | | [address], | | | | | | [place] [address] | | | | + + + + + + | Albumin | 2.8 (L)Comment: Testing | 3.6 - 5.0 g/dL | EXTERNAL | | | | performed at [facility], [address] | | LAB | | | | [address], | | | | | | [place] [address] | | | | + + + + + + | Globulin | 3.6Comment: Testing | 1.3 - 4.9 g/dL | EXTERNAL | | | | performed at [facility], [address] | | LAB | | | | [address], | | | | | | [place] [address] | | | | + + + + + + | A/G Ratio | 0.8 (L)Comment: Testing | 1.0 - 2.4 | EXTERNAL | | | | performed at [facility], [address] | | LAB | | | | [address], | | | | | | [place] [address] | | | | + + + + + + | Bilirubin | 1.2Comment: Testing | 0.1 - 1.5 mg/dL | EXTERNAL | | | Total | performed at [facility], [address] | | LAB | | | | [address], | | | | | | [place] [address] | | | | + + + + + + | ALP, | 79Comment: Testing | 35 - 115 U/L | EXTERNAL | | | External | performed at [facility], [address] | | LAB | | | | [address], | | | | | | [place] [address] | | | | + + + + + + | AST | 47 (H)Comment: Testing | 10 - 45 U/L | EXTERNAL | | | | performed at [facility], [address] | | LAB | | | | [address], | | | | | | [place] [address] | | | | + + + + + + | ALT | 18Comment: Testing | 10 - 65 U/L | EXTERNAL | | | | performed at [facility], [address] | | LAB | | | | [address], | | | | | | [place] [address] | | | | + + + [...] | | | | | | at [facility], [address] | | | | | | [address], | | | | | | [place] [address] | | | | + + + [...] | EXTERNAL LAB | | performed at [facility];[address] [facility] [place] [address] 027 NAP1 BI | | | 027 NAP1 BI PRESUMPTIVE NEGATIVE | | | Detection of 027 NAP1 BI strains of C. difficile is presumptive and | | | for epidemiological purposes and not intended to guide or monitor | | | treatment for C. difficile infections. Testing performed at [facility];[address] | | | [facility] [place] [address] | | + + + + +---------+ [...] 7:26AM Referring Provider Line: | | | [phone] ID: [id number] | | + + + + + + | Narrative | Performed At | + + + | EXAM: ABDOMEN ULTRASOUND LIMITED, [facility] EXAM DATE: 10/05/2014 | | | 06:13 [...] 2014 7:26AM Referring Provider Line: | | [phone] ID: [id number] | |COMPARISON: 03/25/2013. | | [...] Oct 05 2014 7:26AM Referring Provider Line: [phone] ID: [id number] | + + Culture, Urine [...] CEPHALOSPORINS. | | | Testing performed at [facility], [address] [facility], | | | [place] [address] | | + + + + +---------+ [...] | | | | | [place] [address] | | | | + + + + + + | RBC, UA | 16-25Comment: Testing | 0 - 5 /hpf | EXTERNAL | | | | performed at [facility], [address] | | LAB | | | | [address], | | | | | | [place] [address] | | | | + + + + + + | Epithelial | 1-5Comment: Testing | /lpf | EXTERNAL | | | Cells | performed at [facility], [address] | | LAB | | | | [address], | | | | | | [place] [address] | | | | + + + + + + | Bacteria, | 4+ (A)Comment: Testing | | EXTERNAL | | | UA | performed at [facility], [address] | | LAB | | | | [address], | | | | | | [place] [address] | | | | + + + + + + | HYALINE | NONE SEENComment: | | EXTERNAL | | | CASTS UA | Testing performed at | | LAB | | | | [facility], [address] | | | | | | [place] | | | | | | [address] | | | | + + + [...] | | | | | [place] [address] | | | | + + + + + + | Clarity, | CLOUDYComment: Testing | | EXTERNAL | | | Urine | performed at [facility], [address] | | LAB | | | | [address], | | | | | | [place] [address] | | | | + + + + + + | Specific | 1.016Comment: Testing | 1.002 - 1.030 | EXTERNAL | | | Oolitic, | performed at [facility], [address] | | LAB | | | Urine | [address], | | | | | | [place] [address] | | | | + + + + + + | Leukocyte | MODERATE (A)Comment: | | EXTERNAL | | | Esterase, | Testing performed at | | LAB | | | Urine | [facility], [address] | | | | | | [place] | | | | | | [address] | | | | + + + + + + | Nitrite, | NEGATIVEComment: Testing | | EXTERNAL | | | Urine | performed at [facility], [address] | | LAB | | | | [address], | | | | | | [place] [address] | | | | + + + + + + | Urobilinoge | 1.0Comment: Testing | mg/dL | EXTERNAL | | | n, Urine | performed at [facility], [address] | | LAB | | | | [address], | | | | | | [place] [address] | | | | + + + + + + | Protein, | 300 (A)Comment: Testing | mg/dL | EXTERNAL | | | Urine | performed at [facility], [address] | | LAB | | | | [address], | | | | | | [place] [address] | | | | + + + + + + | pH, Urine | 7.5Comment: Testing | 5.0 - 8.0 | EXTERNAL | | | | performed at [facility], [address] | | LAB | | | | [address], | | | | | | [place] [address] | | | | + + + + + + | Blood, | LARGE (A)Comment: | | EXTERNAL | | | Urine | Testing performed at | | LAB | | | | [facility], [address] [facility] | | | | | | [place] | | | | | | [address] | | | | + + + + + + | Ketones | NEGATIVEComment: Testing | mg/dL | EXTERNAL | | | | performed at [facility], [address] | | LAB | | | | [address], | | | | | | [place] [address] | | | | + + + + + + | Bilirubin, | NEGATIVEComment: Testing | | EXTERNAL | | | Urine | performed at [facility], [address] | | LAB | | | | [address], | | | | | | [place] [address] | | | | + + + + + + | Glucose, | NEGATIVEComment: Testing | mg/dL | EXTERNAL | | | Urine | performed at [facility], [address] | | LAB | | | | [address], | | | | | | [place] [address] | | | | + + + [...] RH | | | Testing performed at [facility];[address] [facility] | | | [address]vd;[place] [address] CULTURE | | | NO GROWTH | | | Testing performed at [facility], [address] [facility] | | | [address] | | + + + + +---------+ [...] LH | | | Testing performed at [facility];[address] | [address];[place] [address] CULTURE | | | NO GROWTH | | | Testing performed at [facility], [address] [facility], [place], [place] | | | [address] | | + + + + +---------+ [...] | | | Patient | performed at [facility];[address] | | LAB | | | | [address];[place], [place] | | | | | | [address] | | | | + + + [...] | | | | | performed at [facility] | | | | | | [address];[place], [place] | | | | | | [address] | | | | + + + [...] EXTERNAL | | | | performed at [facility];[address] | K/uL | LAB | | | | [address];[place] | | | | | | [address] | | | | + + + + + + | Non- | 3.38 (L)Comment: Testing | 3.70 - 5.10 | EXTERNAL | | | Red Blood | performed at [facility];[address] | M/uL | LAB | | | Cells | [address];[place] | | | | | Counted | [address] | | | | + + + + + + | Hemoglobin | 10.1 (L)Comment: Testing | 11.3 - 15.5 | EXTERNAL | | | | performed at [facility];[address] | g/dL | LAB | | | | [address];[place] | | | | | | [address] | | | | + + + + + + | Hematocrit, | 30.5 (L)Comment: Testing | 34.0 - 46.0 % | EXTERNAL | | | POC | performed at [facility];[address] | | LAB | | | | [address];[place] | | | | | | [address] | | | | + + + + + + | MCV | 90.4Comment: Testing | 80.0 - 100.0 fl | EXTERNAL | | | | performed at [facility];[address] | | LAB | | | | [address];[place] | | | | | | [address] | | | | + + + + + + | MCH | 29.9Comment: Testing | 27.0 - 34.0 pg | EXTERNAL | | | | performed at [facility];[address] | | LAB | | | | [address];[place] | | | | | | [address] | | | | + + + + + + | MCHC | 33.1Comment: Testing | 32.0 - 35.5 | EXTERNAL | | | | performed at [facility];[address] | g/dL | LAB | | | | [address];[place] | | | | | | [address] | | | | + + + + + + | RDW-CV | 51.6Comment: Testing | 37 - 53 fl | EXTERNAL | | | | performed at [facility];[address] | | LAB | | | | [address];[place] | | | | | | [address] | | | | + + + + + + | Platelet | 62 (L)Comment: Testing | 150 - 400 K/uL | EXTERNAL | | | Count | performed at [facility];[address] | | LAB | | | Plasma | [address];[place] | | | | | | [address] | | | | + + + + + + | MPV | 8.5Comment: Testing | fl | EXTERNAL | | | | performed at [facility];[address] | | LAB | | | | [address];[place] | | | | | | [address] | | | | + + + + + + | Differentia | AUTOMATEDComment: | | EXTERNAL | | | l Type | Testing performed at | | LAB | | | | [facility];[address] | | [address];[place] [address] | | | | + + + + + + | % Segmented | 77.06Comment: Testing | % | EXTERNAL | | | | performed at [facility];[address] | | LAB | | | Neutrophils | [address];[place] | | | | | | [address] | | | | + + + + + + | % | 8.17Comment: Testing | % | EXTERNAL | | | Lymphocytes | performed at [facility];[address] | | LAB | | | | [address];[place] | | | | | | [address] | | | | + + + + + + | % Monocytes | 13.35Comment: Testing | % | EXTERNAL | | | | performed at [facility];[address] | | LAB | | | | [address];[place] | | | | | | [address] | | | | + + + + + + | % | 0.16Comment: Testing | % | EXTERNAL | | | Eosinophils | performed at [facility];[address] | | LAB | | | | [address];[place] | | | | | | [address] | | | | + + + + + + | % Basophils | 1.26Comment: Testing | % | EXTERNAL | | | | performed at [facility];[address] | | LAB | | | | [address];[place] | | | | | | [address] | | | | + + + + + + | Absolute | 3.16Comment: Testing | 1.90 - 7.40 | EXTERNAL | | | Segmented | performed at [facility];[address] | K/uL | LAB | | | Neutrophils | [address];[place] | | | | | | [address] | | | | + + + + + + | Absolute | 0.34 (L)Comment: Testing | 1.00 - 3.90 | EXTERNAL | | | Lymphocytes | performed at [facility];[address] | K/uL | LAB | | | | [address];[place] | | | | | | [address] | | | | + + + + + + | Absolute | 0.55Comment: Testing | 0.00 - 0.80 | EXTERNAL | | | Monocytes | performed at [facility];[address] | K/uL | LAB | | | | [address];[place] | | | | | | [address] | | | | + + + + + + | Absolute | 0.01Comment: Testing | 0.00 - 0.50 | EXTERNAL | | | Eosinophils | performed at [facility];[address] | K/uL | LAB | | | | [address];[place] | | | | | | [address] | | | | + + + + + + | Absolute | 0.05Comment: Testing | 0.00 - 0.10 | EXTERNAL | | | Basophils | performed at [facility];[address] | K/uL | LAB | | | | [address];[place] | | | | | | [address] | | | | + + + [...] | | | QUALITATIVE | performed at [facility] | | LAB | | | | [address];[place], [place] | | | | | | [address] | | | | + + + [...] EXTERNAL | | | | performed at [facility] | | LAB | | | | [facility], [place] | | | | | | [address] | | | | + + + [...] EXTERNAL | | | | performed at [facility];[address] | | LAB | | | | [address];[place] | | | | | | [address] | | | | + + + [...] EXTERNAL | | | | performed at [facility];[address] | mmol/L | LAB | | | | [address];[place] | | | | | | [address] | | | | + + + + + + | K | 3.4 (L)Comment: Testing | 3.5 - 4.9 | EXTERNAL | | | | performed at [facility];[address] | mmol/L | LAB | | | | [address];[place] | | | | | | [address] | | | | + + + + + + | Cl | 105Comment: Testing | 99 - 109 mmol/L | EXTERNAL | | | | performed at [facility];[address] | | LAB | | | | [address];[place] | | | | | | [address] | | | | + + + + + + | CO2 | 24Comment: Testing | 23 - 32 mmol/L | EXTERNAL | | | | performed at [facility];[address] | | LAB | | | | [address];[place] | | | | | | [address] | | | | + + + + + + | Anion Gap | 14Comment: Testing | 5 - 20 mmol/L | EXTERNAL | | | | performed at [facility];[address] | | LAB | | | | [address];[place] | | | | | | [address] | | | | + + + + + + | Glucose, | 99Comment: Testing | 65 - 99 mg/dL | EXTERNAL | | | Fasting | performed at [facility];[address] | | LAB | | | | [address];[place] | | | | | | [address] | | | | + + + + + + | BUN | 8Comment: Testing | 8 - 25 mg/dL | EXTERNAL | | | | performed at [facility];[address] | | LAB | | | | [address];[place] | | | | | | [address] | | | | + + + + + + | Creatinine | 0.82Comment: Testing | 0.50 - 1.00 | EXTERNAL | | | | performed at [facility];[address] | mg/dL | LAB | | | | [address];[place] | | | | | | [address] | | | | + + + + + + | BUN/Creatin | 9Comment: Testing | | EXTERNAL | | | ine Ratio | performed at [facility];[address] | | LAB | | | | [address];[place] | | | | | | [address] | | | | + + + + + + | Calcium | 8.2 (L)Comment: Testing | 8.5 - 10.5 | EXTERNAL | | | | performed at [facility];[address] | mg/dL | LAB | | | | [address];[place] | | | | | | [address] | | | | + + + [...] | | | | | | at [facility];[address] | [address];[place] [address] | | | | + + + [...] MD on Sep 1:19AM Referring Provider Line: [phone] ID: [id number] | | + + + [...] | | 2014 1:19AM Referring Provider Line: [phone] ID: [id number] | | | |Bones: No [...] 05 2014 1:19AM Referring Provider Keri ne: [phone] ID: [id number] | + + MRSA NAAT (10/04/2014 11:52 PM PDT) + + | Specimen | + + | | + + + + + | Narrative | Performed At | + + + | SOURCE NARES(NOSE) MRSA | EXTERNAL LAB | | PCR NEGATIVE Testing | | | performed at [facility];[address] [place] [address];[place] [address] | | + + + + +---------+ [...]
--- OUTSIDE RECORDS SUMMARY | ~2020-01-12 | XMS | Encounter Summary ---
Demographics + + + | Address | [address] | | | [place] [address] | + + + | Home Phone [...] + + + | Author | [facility] | | | and [place] | + + + | Organization | [facility] | | | and [place] | + + + | Address | Unknown | + + + | Phone | Unavailable | + + + Support + + + + + | Name | Relationship | Address | Phone | + + + + + | Joanne Pham | ECON | [address] | | | | | [place] | | | | | [id number] | | + + + + + | Viktor Son | EDDIE | Unknown | | + + + + + | Edd Gill | ECON | Unknown | | + + + + + | Conner Barber | ECON | Unknown | | + + + + + Care Team Providers + +------+ + | Care Wastewater Analyst Lab Analyst Name | Role | Phone | + +------+ + PCP | Unavailable | + +------+ + Encounter Details +--------+ + + + + | Date | Type | Department | Care Team | Description | +--------+ + + + + | 07/27/ | Hospital | [facility] | Lasha Márquez | GI bleed; Seizure | | 2011 - | Encounter | [facility] | MD [address] | ([facility]); Alcohol | | | | CLINICAL DECISION | IRMA JEAN | withdrawal ([facility]); | | 07/30/ | | [address] | [address] | Blood loss anemia; | | 2011 | | [place], [place] | [place] [address] | Fever; | | | | [address] | [phone] | Thrombocytopenia | | | | [phone] | | ([facility]); Elevated | | | | | | amylase; Marijuana | | | | | | abuse | +--------+ + + + + Social [...] documented as of this encounter Discharge Summaries Jigna Oakes MD - 07/31/2011 11:06 AM PDTFormatting of this note might be different rosalind m the original. Discharge Summaries by Dalia Oakes MD at 07/31/11 1510 Author: Dalia Oakes MD Service: Hospitalist Author Type: Physician Filed: 07/31/111118 Date of Service: 07/31/111105 Status: Signed College And Career Counselor: Dalia Oakes MD (Physician) Related Notes: Original Note by Dalia Oakes MD (Physician) filed at 07/31/11 111 [facility] Service: Hospitalist Physician Discharge Summary Patient ID: Shaila Son [id number] 41 y.o. 1970 Admit date: 07/28/2011 Discharge date and time: 07/31/2011 Admitting Physician: Lasha Márquez MD Discharge Physician: Dalia Oakes MD Consults: Dr. Griffith (GI) Discharge Diagnoses: Alcohol withdrawal [291.81] Marijuana abuse [305.20] Seizure [780.39] Thrombocytopenia [287.5] GI bleed [578.9] Elevated amylase [790.5] Fever [780.60] Blood loss anemia [280.0] Hepatic encephalopathy Discharged Condition: stable Significant Diagnostic Studies: Labs: Hb Platelets and Ammonia HPI and Hospital Course: The patient is a 41 y.o. female with significant past medical history of Chronic alcohol re lated liver disease with hx of GI bleed and ulcer in the past, hx of alcoholism who initiall y presented to [facility] with Hx of seizure, according to patient she was in usual state of healt until earlier that day when she was witnessed by her aunt that she might had seizure with decreasing level of conciusness, her aunt called EMS who brought her to [facility] where she was evaluated and suspected to have possible alcohol withdrawal seizur e, in that hospital she had vomiting with blood. The physician contacted Dr. Griffith gastroent erologist to transfer patient to [facility] for possible need of endoscopy on urgent basis, mayco ent was sleep on arrival here, she did not remember what type of seizure episode she had ear lier that day, she said she was very sleep afetr seizure episode, she said she might have bi tten her tongue but no injury noted, she noticed some blood on bed after seizure episode and she was not sure wether she vomited that. She denied any hx of fever but she had temp of 10 1F in our ER, she had no hx of cough, sneezing, runny nose, chest pain, shortness of breath, urinary or bowel symptoms. On workup her alcohol level was more than 12 and it was repeated in ER here which was less than 3. Her platelet count was 40K and INR of 1.4, her initial H b was 9.3 which went down to 8.9 in couple hours. The patient was seen and evaluated by Dr. Griffith. She did not drop her hemoglobin below 8 and did not require transfusion. Her platelets remained stable. Her ammonia level was checked, which was 85 initially. She was put on lactulose, which could not be started right away because she was scheduled for EGD. It was started later next night and ammonia level came down to 62. She was awake, alert, and oriented next day and on the day of discharge. She did not have any significant major alcohol withdrawal. She was put on CIWA protocol and received Ativan initially 2 mg and then 1 mg. She was not requiring much at the time of discharge. She has not had any more hematemesis or melena. She did have endoscopy done by Dr. Griffith. Please refer to Dr. Griffith's report. He did not find any acute bleeding or any significant varices. Hemoglobin was stable at 8.3. Ammonia level came down to 62 after starting her on lactulose. Discharge condition is stable. She was advised to become completely abstinent from alcohol, and she understands that. She will follow up with her primary care physician at [facility]. She does not remember the name of her primary care physician. Discharge Exam: Constitutional: Awake and alert. Appears well-developed and well-nourished. Cardiovascular: Normal rate, regular rhythm, normal heart sounds and intact distal pulses. Exam reveals no gallop and no friction rub. No murmur heard. Pulmonary/Chest: Effort normal and breath sounds normal. No stridor. No respiratory distres s. no wheezes. no rales. exhibits no tenderness. Abdominal: Soft. Bowel sounds are normal. exhibits no distension and no mass. There is mini mal epigastric tenderness. There is no rebound and no guarding. Musculoskeletal: Normal range of motion.exhibits no tenderness. Extremities: No edema clubbing or cyanosis. Neurological: Non focal. Skin: Skin is warm and dry. No rash noted. No erythema. No pallor. Psychiatric: Has a normal mood and affect. Behavior is normal. Judgment normal. Disposition: Home Patient Instructions: Current Discharge Medication List START taking these medications Details folic acid (FOLVITE) 1 MG tablet Take 1 tablet by mouth daily. Qty: 30 tablet, Refills: 0 lactulose (CHRONULAC) 10 GM/15ML solution Take 30 mLs by mouth 3 (three) times daily. Qty: 240 mL, Refills: 0 pantoprazole (PROTONIX) 40 MG tablet Take 1 tablet by mouth every morning before breakfast. Qty: 30 tablet, Refills: 0 thiamine 100 MG tablet Take 1 tablet by mouth daily. Qty: 30 tablet, Refills: 0 CONTINUE these medications which have NOT CHANGED Details lorazepam (ATIVAN) 2 MG tablet Take 2 mg by mouth 2 (two) times daily. Indications: Acut e Alcohol Withdrawal Syndrome Activity: activity as tolerated Diet: regular diet Wound Care: not applicable There are no Patient Instructions on file for this visit. Follow-up with PCP in 1 week Total time spent in discharge process 35 minutes. Signed: DALIA OAKES 07/31/2011 11:06 AM documente d in this encounter Progress Notes Conversion Transaction, Provider Unknown - 07/31/2011 1:37 PM PDTFormatting of this note m ight be different from the original. Progress Notes by Aimee Molina at 07/31/11 8296 Author: Aimee Molina Service: (none) Author Type: Diamond Grinder Filed: 07/31/11 0424 Date of Service: 07/31/11 7339 Status: Signed College And Career Counselor: Aimee Molina (Diamond Grinder) KAMILAH checked with [facility] for transportation issues, pt is OHP Standard and therefore do es not qualify for [place] transportation... Pt states that she has others she can try to linda l for a ride, pt has a phone voucher with 75 minutes on it... Pt also has a brother that morgan es in [place] however pt states she does not want to call him... JAIME Lin stated that pts s ister had called earlier and stated that [facility] paid for her way home with a taxi ride a sun ago, KAMILAH explained to pt that we no longer do this, pt will get hold of family. onver miriam Transaction, Provider Unknown - 07/31/2011 1:29 PM PDT Progress Notes by Riley Charles RN at 07/31/119 Author: Riley Charles RN Service: (none) Author Type: Registered Nurse Filed: 07/31/11 1336 Date of Service: 07/31/111328 Status: Signed College And Career Counselor: Riley Charles RN (Registered Nurse) Patient states she ready to discharge. No new complications. Last CIWA score was 6. Minimal Ativan use to achieve tolerable anxiety level. Will continue to monitor until discharge. In structions given, follow up appointments and scripts given. onver miriam Transaction, Provider Unknown - 07/31/2011 8:31 AM PDT Progress Notes by Carlos Nevarez RPH at 07/31/11830 Author: Carlos Nevarez RPH Service: (none) Author Type: Pharmacist Filed: 07/31/11830 Date of Service: 07/31/11830 Status: Signed College And Career Counselor: Carlos Nevarez RPH (Pharmacist) Vancomycin day 3, trough today at 0502 was 12.3 (goal 10 to 20), will continue vancomycin a t 1gm IV q12hrs. >> AUSTIN DOYLE 07/30/2011 09:51 Day 2 Vanco 1gm IV q 12h Todays Scr= 0.8, WBC= 3.2, CrCl 90ml/min Vanco Tr 0500 07/31/11. Goal Tr 10-20mcg/ml AUSTIN DOYLE 07/30/2011 9:51 AM >> DEVIN LYNN 07/29/2011 04:13 Clinical Pharmacy Note: Pharmacy Dosing Vancomycin; Day 1 Shaila Son 41 y.o. female Ht Readings from Last 1 Encounters: 07/29/11 1.702 m (5' 7") Wt Readings from Last 1 Encounters: 07/29/11 61.2 kg (134 lb 14.7 oz) CREATININE Date Value Range Status 07/28/2011 0.7 0.6-1.2 (mg/dL) Final Testing performed at [facility];[address] [facility];[place] [address] CREATININE: 0.7 (07/28/11 2312) Estimated creatinine clearance - Cockcroft-Gault CrCl: 103.2 mL/min INDICATION: Fever; Empiric Treatment Will begin Vancomycin 1000 mg (16.3 mg/kg) IV Q12H. Level due 07/30 at 0500; goal 10 to 20 mcg/ml. Pharmacy will continue to monitor for changes in renal function and adjust accordingly. Devin Lynn, KylieD 07/29/2011 4:13 AM Jigna Lopez MD - 07/30/2011 12:31 PM PDTFormatting of this note might be different from the o riginal. Progress Notes by Dalia Oakes MD at 07/30/11 1231 Author: Dalia Oakes MD Service: Hospitalist Author Type: Physician Filed: 07/30/11 1236 Date of Service: 07/30/11 1231 Status: Signed College And Career Counselor: Dalia Oakes MD (Physician) [facility] Service: Hospitalist Progress Note Shaila Son 41 y.o. [id number] 309/[id number] female BRANDI LEONARDO MD, MD Hospital Day: LOS: 2 days SUBJECTIVE Feeling OK, no complaints Patient Summary: Events Overnight: Patient seen and examined. No other complaint today, no more bleeding episode. Scheduled Medications folic acid 1 mg Oral Daily lactulose 20 g Oral TID levofloxacin 500 mg Intravenous Q24H phytonadione 10 mg Subcutaneous Daily pneumococcal vaccine 0.5 mL Intramuscular Once thiamine 100 mg Oral Daily vancomycin 1 g Intravenous Q12H DISCONTD: sodium chloride 3 mL Intravenous Q8H Continuous Infusions dextrose 5 % and 0.45 % NaCl 75 mL/hr at 07/30/11 1142 octreotide (SANDOSTATIN) infusion 25 mcg/hr (07/29/11 9453) pantoprozole (PROTONIX) infusion 8 mg/hr (07/30/11 2969) PRN Medications acetaminophen, acetaminophen, lorazepam, lorazepam, ondansetron, ondansetron, polyethylene glycol, zolpidem Allergy: No Known Allergies OBJECTIVE Vital Signs: BP 154/79 | Pulse 69 | Temp(Src) 99.5 F (37.5 C) (Oral) | Resp 18 | Ht 1.702 m (5' 7") | Wt 60.782 kg (134 lb) | BMI 20.99 kg/m2 | SpO2 99% | ? No Temp: [98.7 F (37.1 C)-100.7 F (38.2 C)] 99.5 F (37.5 C) (07/29 1209) BP: (128-154)/(66-85) 154/79 mmHg (07/29 1209) Heart Rate: [69-111] 69 (07/29 1209) Resp: [16-24] 18 (07/29 1043) SpO2: [96 %-100 %] 99 % (07/29 1043) Weight: [60.782 kg (134 lb)] 60.782 kg (134 lb) (07/28 2340) I&O Detailed Table: I/O last 3 completed shifts: In: 4098.2 [P.O.:900; I.V.:2828.2; IV Piggyback:370] Out: 801 [Urine:801] I/O this shift: In: - Out: 700 [Urine:700] Hemodynamics Last 24hrs: Examination: Constitutional: Awake and alert. Appears well-developed and well-nourished. Cardiovascular: Normal rate, regular rhythm, normal heart [...] There is no rebound and no guarding. Musculoskeletal: Normal range of motion.exhibits no tenderness. Extremities: No edema clubbing or cyanosis. Neurological: Limited exam because of decreased mentation. Skin: Skin is warm and dry. No rash noted. No erythema. No pallor. Psychiatric: Has a normal mood and affect. Behavior is normal. Judgment normal. Laboratory: Glucose: GLUCOSE Date Value Range Status 07/30/2011 124* 65-99 (mg/dL) Final Testing performed at [facility];[address] [facility] [address] [facility];[place] [address] CBC: Lab Results Component Value Date WBC 3.2* 07/30/2011 RBC 2.69* 07/30/2011 HGB 9.0* 07/30/2011 HCT 27.3* 07/30/2011 MCV 94.1 07/30/2011 MCH 30.4 07/30/2011 MCHC 32.4 07/30/2011 RDW 55.6* 07/30/2011 PLT 51* 07/30/2011 MPV 8.2 07/30/2011 DIFFTYPE AUTOMATED 07/30/2011 CMP: Lab Results Component Value Date NA 137 07/30/2011 K 3.5 07/30/2011 CL 108 07/30/2011 CO2 22* 07/30/2011 ANIONGAP 11 07/30/2011 GLUF 124* 07/30/2011 BUN 6* 07/30/2011 CREATININE 0.8 07/30/2011 BCR 8 07/30/2011 CA 7.3* 07/30/2011 PROT 6.6 07/30/2011 ALB 2.1* 07/30/2011 GLOB 4.4 07/30/2011 BILITOT 1.2 07/30/2011 ALP 82 07/30/2011 AST 40 07/30/2011 ALT 21 07/30/2011 EGFR >60 07/30/2011 Magnesium: Lab Results Component Value Date MG 1.5 07/29/2011 PT/INR: Lab Results Component Value Date INR 1.4 07/28/2011 Last 3 Troponin: No results found for this basename: TROPONINI ABG: No components found with this basename: POCTEMP, POCFIO2, POCPH, POCPCO, POCPO2, POCHC O, POCTCO2, POCBD, BEART, POCSO2, POCCMT PROBLEM LIST Principal Problem: *GI bleed Active Problems: Alcohol withdrawal Thrombocytopenia, unspecified Anemia Alcohol withdrawal seizure Hepatic encephalopathy ASSESSMENT & PLAN Continue her on CIWA protocol for alcohol withdrawal. Continue her on thiamine 100 mg and folic acid 1 mg daily and IV fluid Will monitor h/H q 12 hour and may transfuse PRBC if hematocrit drops. Will cont on protonix and octreotide infusion as per GI Dr. Griffith. Monitor platelet cont which is suspected to be secondary to liver disease Will do SCD for DVT prophylaxis and avoid heparin since patient has GI bleed Hepatic encephalopathy will add Lactulose and check Ammonia level daily. DALIA OAKES MD 07/30/2011 Maher, Zay Shepherd MD - 07/30/2011 10:02 AM PDT Progress Notes by Mitchell Griffith IV, MD at 07/30/11 1002 Author: Mitchell Griffith IV, MD Service: (none) Author Type: Physician Filed: 07/30/11 1010 Date of Service: 07/30/11 1002 Status: Signed College And Career Counselor: Mitchell Griffith IV, MD (Physician) [facility] Service: Gastroenterology Progress Note Hospital Day: LOS: 2 days Post-Op Day: * No surgery found * SUBJECTIVE Patient Summary: alcoholic with remote varices, episode of hematemesis refused EGD Events Overnight: Much more awake, alert and cooperative. Mood much improved. Discuss ed her reason for transfer here regarding episode GI bleeding and concern for varices. She i s willing now to pursue EGD. Has not eaten any solid food today. Sips of water only at 0930. Scheduled Medications folic acid 1 mg Oral Daily lactulose 20 g Oral TID levofloxacin 500 mg Intravenous Q24H phytonadione 10 mg Subcutaneous Daily pneumococcal vaccine 0.5 mL Intramuscular Once thiamine 100 mg Oral Daily vancomycin 1 g Intravenous Q12H DISCONTD: sodium chloride 3 mL Intravenous Q8H Continuous Infusions dextrose 5 % and 0.45 % NaCl 75 mL/hr at 07/29/11 1901 octreotide (SANDOSTATIN) infusion 25 mcg/hr (07/29/11 4138) pantoprozole (PROTONIX) infusion 8 mg/hr (07/30/11 4140) PRN Medications acetaminophen, acetaminophen, lorazepam, lorazepam, ondansetron, ondansetron, polyethylene glycol, zolpidem OBJECTIVE Vital Signs: BP 139/79 | Pulse 70 | Temp(Src) 98.7 F (37.1 C) (Oral) | Resp 18 | Ht 1.702 m (5' 7") | Wt 60.782 kg (134 lb) | BMI 20.99 kg/m2 | SpO2 100% | ? No Temp: [98.7 F (37.1 C)-99.9 F (37.7 C)] 98.7 F (37.1 C) (07/29 710) BP: (128-154)/(66-85) 139/79 mmHg (07/29 899) Heart Rate: [70-90] 70 (07/29 899) Resp: [16-24] 18 (07/29 710) SpO2: [96 %-100 %] 100 % (07/29 710) Weight: [60.782 kg (134 lb)] 60.782 kg (134 lb) (07/280) Physical Exam Vitals reviewed. Constitutional: She is oriented to person, place, and time. She appears well-developed and well-nourished. Neck: Normal range of motion. Neck supple. No tracheal deviation present. Cardiovascular: Normal rate, regular rhythm and normal heart sounds. Pulmonary/Chest: Effort normal and breath sounds normal. No respiratory distress. She has n o wheezes. Abdominal: Soft. There is no tenderness. There is no guarding. Lymphadenopathy: She has no cervical adenopathy. Neurological: She is alert and oriented to person, place, and time. She exhibits normal mus danette tone. Coordination normal. Psychiatric: She has a normal mood and affect. Her behavior is normal. Judgment and thought content normal. DATA CBC: Lab Results Component Value Date WBC 3.2* 07/30/2011 RBC 2.69* 07/30/2011 HGB 9.0* 07/30/2011 HCT 27.3* 07/30/2011 MCV 94.1 07/30/2011 MCH 30.4 07/30/2011 MCHC 32.4 07/30/2011 RDW 55.6* 07/30/2011 PLT 51* 07/30/2011 MPV 8.2 07/30/2011 DIFFTYPE AUTOMATED 07/30/2011 CMP: Lab Results Component Value Date NA [...] Results Component Value Date INR 1.4 07/28/2011 PTT: Lab Results Component Value Date APTT 32 07/28/2011 [APTT Amylase: Lab Results Component Value Date AMYLASE 321* 07/28/2011 Lipase: Lab Results Component Value Date LIPASE 90 07/28/2011 PROBLEM LIST Principal Problem: *GI bleed Active Problems: Alcohol withdrawal Thrombocytopenia, unspecified Anemia Alcohol withdrawal seizure ASSESSMENT & PLAN Limited episode of hematemesis and remote history of varices per ED physician from [facility] and mild hematemesis this am per patient. This occuring in woman with chronic alc oholism with seizure this am after missing alcohol today. Possibilities include varices, ulc ers, esophagitis, gastritis, MWT, neoplasm among others. EGD strongly recommended to guide c are and potential therapeutics if indicated. Explained carefully multiple times to patient. She repeatedly claims only had small amount of bleeding with vomiting this am and refused EG D at time of admission/transfer. Witnessed by ED nurse. Patient remains without further acute bleeding. Much better mood and cooperative. Willing t o pursue EGD today. If low risk lesion seen possibly able to discharge sooner. Recommendation 1. Arrange for EGD today 2. Npo nursing notified 3. Further management based on findings at EGD Code Status: Full Code AMA GRIFFITH MD 07/30/2011 Jessica, Jigna Edmonds MD - 07/29/2011 12:44 PM PDT Progress Notes by Dalia Oakes MD at 07/29/11 1244 Author: Dalia Oakes MD Service: Hospitalist Author Type: Physician Filed: 07/29/11 7960 Date of Service: 07/29/11 3480 Status: Signed College And Career Counselor: Dalia Oakes MD (Physician) [facility] Service: Hospitalist Progress Note Shaila Son 41 y.o. [id number] 309/309-2 female BRANDI LEONARDO MD, MD Hospital Day: LOS: 1 day SUBJECTIVE Very sleepy and hard to arouse Patient Summary: Events Overnight: Patient seen and examined. No other complaint today. Nurse reports no more bleeding episod e. Scheduled Medications folic acid 1 mg Oral Daily levofloxacin 500 mg Intravenous Q24H phytonadione 10 mg Subcutaneous Daily pneumococcal vaccine 0.5 mL Intramuscular Once sodium chloride 3 mL Intravenous Q8H thiamine 100 mg Oral Daily vancomycin 1 g Intravenous Q12H DISCONTD: sodium chloride 3 mL Intravenous Q8H DISCONTD: vancomycin 1 g Intravenous Once Continuous Infusions dextrose 5 % and 0.45 % NaCl 75 mL/hr at 07/29/11 0434 octreotide (SANDOSTATIN) infusion 25 mcg/hr (07/29/11 0348) pantoprozole (PROTONIX) infusion 8 mg/hr (07/29/11 1009) DISCONTD: octreotide (SANDOSTATIN) infusion 25 mcg/hr (07/29/11 0016) DISCONTD: pantoprozole (PROTONIX) infusion 8 mg/hr (07/29/11 0016) PRN Medications acetaminophen, acetaminophen, lorazepam, lorazepam, ondansetron, ondansetron, polyethylene glycol, zolpidem, DISCONTD: acetaminophen Allergy: No Known Allergies OBJECTIVE Vital Signs: BP 153/78 | Pulse 82 | Temp(Src) 99.2 F (37.3 C) (Oral) | Resp 16 | Ht 1.702 m (5' 7") | Wt 61.2 kg (134 lb 14.7 oz) | BMI 21.13 kg/m2 | SpO2 98% | ? No Temp: [99.2 F (37.3 C)-101.6 F (38.7 C)] 99.2 F (37.3 C) (07/28 1213) BP: (119-157)/(60-96) 153/78 mmHg (07/28 1213) Heart Rate: [82-114] 82 (07/28 1213) Resp: [14-20] 16 (07/28 1213) SpO2: [94 %-98 %] 98 % (07/28 1213) Height: [170.2 cm (5' 7")] 170.2 cm (5' 7") (07/28 314) Weight: [61.2 kg (134 lb 14.7 oz)-63.504 kg (140 lb)] 61.2 kg (134 lb 14.7 oz) (07/28 314 ) BMI (Calculated): [21.2-22] 21.2 (07/28 314) I&O Detailed Table: Hemodynamics Last 24hrs: Examination: Constitutional: Very sleepy. Appears well-developed and well-nourished. Cardiovascular: Normal rate, regular rhythm, normal heart [...] There is no rebound and no guarding. Musculoskeletal: Normal range of motion.exhibits no tenderness. Extremities: No edema clubbing or cyanosis. Neurological: Limited exam because of decreased mentation. Skin: Skin is warm and dry. No rash noted. No erythema. No pallor. Psychiatric: Has a normal mood and affect. Behavior is normal. Judgment normal. Laboratory: Glucose: GLUCOSE Date Value Range Status 07/29/2011 145* 65-99 (mg/dL) Final Testing performed at [facility];[address] [place] [id number] CBC: Lab Results Component Value Date WBC 6.7 07/28/2011 RBC 2.94* 07/28/2011 HGB 8.4* 07/29/2011 HCT 25.6* 07/29/2011 MCV 91.9 07/28/2011 MCH 30.1 07/28/2011 MCHC 32.8 07/28/2011 RDW 54.7* 07/28/2011 PLT 45* 07/28/2011 MPV 8.4 07/28/2011 DIFFTYPE AUTOMATED 07/28/2011 CMP: Lab Results Component Value Date NA 139 07/29/2011 K 3.6 07/29/2011 CL 109 07/29/2011 CO2 21* 07/29/2011 ANIONGAP 13 07/29/2011 GLUF 145* 07/29/2011 BUN 9 07/29/2011 CREATININE 0.8 07/29/2011 BCR 11 07/29/2011 CA 7.5* 07/29/2011 PROT 7.7 07/28/2011 ALB 2.6* 07/28/2011 GLOB 5.0* 07/28/2011 BILITOT 1.3 07/28/2011 ALP 126* 07/28/2011 AST 56* 07/28/2011 ALT 22 07/28/2011 EGFR >60 07/29/2011 Magnesium: Lab Results Component Value Date MG 1.5 07/29/2011 PT/INR: Lab Results Component Value Date INR 1.4 07/28/2011 Last 3 Troponin: No results found for this basename: TROPONINI ABG: No components found with this basename: POCTEMP, POCFIO2, POCPH, POCPCO, POCPO2, POCHC O, POCTCO2, POCBD, BEART, POCSO2, POCCMT PROBLEM LIST Principal Problem: *GI bleed Active Problems: Alcohol withdrawal Thrombocytopenia, unspecified Anemia Alcohol withdrawal seizure ASSESSMENT & PLAN Will cont her on CIWA protocol for alcohol withdrawal but use lower dose Ativan Will also cont her on thiamine 100 mg and folic acid 1 mg daily Will continue IV fluid Will monitor h/H q 12 hour and may transfuse PRBC if hematocrit drops. Will also given her vitamin K 10 mg sq daily for 3 days Will cont on protonix and octreotide infusion GI consultation done and Dr. Griffith, has seen her Monitor platelet cont which is suspected to be secondary to liver disease Will do SCD for DVT prophylaxis and avoid heparin since patient has GI bleed Will check Ammonia level to R/O Hepatic encephalopathy. DALIA OAKES MD 07/29/2011 Zay Rose MD - 07/29/2011 11:51 AM PDT Progress Notes by Mitchell Griffith IV, MD at 07/29/11 1151 Author: Mitchell Griffith IV, MD Service: (none) Author Type: Physician Filed: 07/29/11 1201 Date of Service: 07/29/11 1151 Status: Signed College And Career Counselor: Mitchell Griffith IV, MD (Physician) [facility] Service: Gastroenterology Progress Note Hospital Day: LOS: 1 day Post-Op Day: * No surgery found * SUBJECTIVE Patient Summary: alcoholic with remote varices, episode of hematemesis refused EGD Events Overnight: Patient not very cooperative with questioning though somewhat sedat ed but easy to arouse. Per nursing no further emesis. Scheduled Medications folic acid 1 mg Oral Daily levofloxacin 500 mg Intravenous Q24H phytonadione 10 mg Subcutaneous Daily pneumococcal vaccine 0.5 mL Intramuscular Once sodium chloride 3 mL Intravenous Q8H thiamine 100 mg Oral Daily vancomycin 1 g Intravenous Q12H DISCONTD: sodium chloride 3 mL Intravenous Q8H DISCONTD: vancomycin 1 g Intravenous Once Continuous Infusions dextrose 5 % and 0.45 % NaCl 75 mL/hr at 07/29/11 0434 octreotide (SANDOSTATIN) infusion 25 mcg/hr (07/29/11 0348) pantoprozole (PROTONIX) infusion 8 mg/hr (07/29/11 1009) DISCONTD: octreotide (SANDOSTATIN) infusion 25 mcg/hr (07/29/11 0016) DISCONTD: pantoprozole (PROTONIX) infusion 8 mg/hr (07/29/11 0016) PRN Medications acetaminophen, acetaminophen, lorazepam, lorazepam, ondansetron, ondansetron, polyethylene glycol, zolpidem, DISCONTD: acetaminophen OBJECTIVE Vital Signs: BP 148/93 | Pulse 82 | Temp(Src) 99.4 F (37.4 C) (Oral) | Resp 16 | Ht 1.702 m (5' 7") | Wt 61.2 kg (134 lb 14.7 oz) | BMI 21.13 kg/m2 | SpO2 98% | ? No Temp: [99.4 F (37.4 C)-101.6 F (38.7 C)] 99.4 F (37.4 C) (07/28 825) BP: (119-157)/(60-96) 148/93 mmHg (07/28 1000) Heart Rate: [82-114] 82 (07/28 999) Resp: [14-20] 16 (07/28 825) SpO2: [94 %-98 %] 98 % (07/28 999) Height: [170.2 cm (5' 7")] 170.2 cm (5' 7") (07/28 314) Weight: [61.2 kg (134 lb 14.7 oz)-63.504 kg (140 lb)] 61.2 kg (134 lb 14.7 oz) (07/28 314 ) BMI (Calculated): [21.2-22] 21.2 (07/28 314) Physical Exam Vitals reviewed. Constitutional: She is uncooperative. Able to arouse but relatively uncooperative with questioning Abdominal: Soft. There is no tenderness. DATA CBC: Lab Results Component Value Date WBC 6.7 07/28/2011 RBC 2.94* 07/28/2011 HGB 8.2* 07/29/2011 HCT 25.0* 07/29/2011 MCV 91.9 07/28/2011 MCH 30.1 07/28/2011 MCHC 32.8 07/28/2011 RDW 54.7* 07/28/2011 PLT 45* 07/28/2011 MPV 8.4 07/28/2011 DIFFTYPE AUTOMATED 07/28/2011 CMP: Lab Results Component Value Date NA 139 07/29/2011 K 3.6 07/29/2011 CL 109 07/29/2011 CO2 21* 07/29/2011 ANIONGAP 13 07/29/2011 GLUF 145* 07/29/2011 BUN 9 07/29/2011 CREATININE 0.8 07/29/2011 BCR 11 07/29/2011 CA 7.5* 07/29/2011 PROT 7.7 07/28/2011 ALB 2.6* 07/28/2011 GLOB 5.0* 07/28/2011 BILITOT 1.3 07/28/2011 ALP 126* 07/28/2011 AST 56* 07/28/2011 ALT 22 07/28/2011 EGFR >60 07/29/2011 PT/INR: Lab Results Component Value Date INR 1.4 07/28/2011 PTT: Lab Results Component Value Date APTT 32 07/28/2011 [APTT Results for SHAILA SON ( ) as of 07/29/2011 11:56 Ref. Range 07/28/2011 23:12 07/29/2011 05:55 HGB Latest Range: 11.6-15.5 g/dL 8.9 (L) 8.2 (L) HCT Latest Range: 35.0-46.0 % 27.0 (L) 25.0 (L) PROBLEM LIST Principal Problem: *GI bleed Active Problems: Alcohol withdrawal Thrombocytopenia, unspecified Anemia Alcohol withdrawal seizure ASSESSMENT & PLAN Limited episode of hematemesis and remote history of varices per ED physician from [facility] and mild hematemesis this am per patient. This occuring in woman with chronic alc oholism with seizure this am after missing alcohol today. Possibilities include varices, ulc ers, esophagitis, gastritis, MWT, neoplasm among others. EGD strongly recommended to guide c are and potential therapeutics if indicated. Explained carefully multiple times to patient. She repeatedly claims only had small amount of bleeding with vomiting this am and refuses EG D at this time. Witnessed by ED nurse. Patient remains without further acute bleeding. Still relatively uncooperative with questio ns. Will continue to observe closely. Urgent EGD if acutely bleeds and willing. Recommendations 1. Continue octreotide and pantoprazole infusions 2. Ice chips for now 3. Serial H/H 4. Withdrawal precautions / protocol as felt appropriate 5. Will evaluate tomorrow and again discuss willingness for evaluation - will hold off on E GD as noted above Disposition: inpatient Code Status: Full Code AMA GRIFFITH MD 07/29/2011 onversion Trans action, Provider Unknown - 07/29/2011 4:13 AM PDT Progress Notes by Devin Lynn RPH at 07/29/11412 Author: Devin Lynn RPH Service: (none) Author Type: Pharmacist Filed: 07/29/11412 Date of Service: 07/29/11412 Status: Signed College And Career Counselor: Devin Lynn RPH (Pharmacist) Clinical Pharmacy Note: Pharmacy Dosing Vancomycin; Day 1 Shaila Huy 41 y.o. female Ht Readings from Last 1 Encounters: 07/29/11 1.702 m (5' 7") Wt Readings from Last 1 Encounters: 07/29/11 61.2 kg (134 lb 14.7 oz) CREATININE Date Value Range Status 07/28/2011 0.7 0.6-1.2 (mg/dL) Final Testing performed at [facility];[address] [place] [address];[place] [address] CREATININE: 0.7 (07/28/11 2312) Estimated creatinine clearance - Cockcroft-Gault CrCl: 103.2 mL/min INDICATION: Fever; Empiric Treatment Will begin Vancomycin 1000 mg (16.3 mg/kg) IV Q12H. Level due 07/30 at 0500; goal 10 to 20 mcg/ml. Pharmacy will continue to monitor for changes in renal function and adjust accordingly. Devin Lynn PharmD 07/29/2011 4:13 AM docume nted in this encounter H&P Notes Mitchell Griffith MD - 07/30/2011 2:07 PM PDT H&P by Mitchell Griffith IV, MD at 07/30/11 1407 Author: Mitchell Griffith IV, MD Service: (none) Author Type: Physician Filed: 07/30/11 1409 Date of Service: 07/30/111406 Status: Signed College And Career Counselor: Mitchell Griffith IV, MD (Physician) [facility] Service: Gastroenterology Service Pre-procedure History & Physical Update Patient Name: Shaila Son Date of Admission: 07/30/2011 On reexamination of the patient and patient's chart today, there are no changes. ASA Classification: ASA 2: Patient with a mild systemic disease Mallampati Airway Classification: I: Full visibility of tonsils, uvula and soft palate AMA GRIFFITH MD 07/30/2011 Lasha Gurrola MD - 07/29/2011 1:07 AM PDTFormatting of this note might be different from the origi nal. H&P by Lasha Márquez MD at 07/29/11 010 Author: Lasha Márquez MD Service: Hospitalist Author Type: Physician Filed: 07/29/11 0128 Date of Service: 07/29/11106 Status: Signed College And Career Counselor: Lasha Márquez MD (Physician) [facility] Service: Hospitalist Admission History & Physical Date of Admission: 07/28/2011 Reason for Admission: GI bleed, alcohol withdrawal syndrome with seizures History Obtained From: patient CHIEF COMPLAINT: Blood in vomitus, seizures HISTORY OF PRESENT ILLNESS The patient is a 41 y.o. female with significant past medical history of Chronic alcohol r elated liver disease with hx of GI bled and ulcer in the past, hx of alcoholism who initiall [facility] with Hx of seizure, according to patient she was in usual [facility] until earlier today when she was witnessed by her aunt that she might have sei zure with decreasing level of conciusness, her [facility] and suspected to have possible alcohol withdrawal seizure, wh ere t=in that hospital she has vomiting with blood in vomitus. The physician contacted dr anderson her gastroeneterologist in [facility] who has suggested to transfer patient to [facility] for p ossible need of endoscopy on urgent basis, at present patient is sleep, she is not remember what type of seizure episode she ahs earlier today, she said she was juice sleep afetr seizure episode, she said she might have bitten her tongue but no injury noted, she noticed some bl ood on bed after seizure episode and she was not sure wether she vomited that. She denied an y hx of ever but she has temp of 101F in our ER, she ahs no hx of cough, sneezing, runny nos e, chest pain, shortness of breath, urinary or bowel symptoms. On workup her alcohol level w as more than 12 and it was repeated in our Er which is less than 3. Her platelet count is 40 K and INR of 1.4, her initial hb was 9.3 which went down to 8.9 in couple hours. REVIEW OF SYSTEMS Review of Systems - Negative except nausea, vomiting with blood iin vomit us, fever, abdominal pain mild Past Medical History Diagnosis Date Hemorrhage of gastrointestinal tract, unspecified Liver disease History reviewed. No pertinent past surgical history. No Known Allergies Prior to Admission medications Not on File History reviewed. No pertinent family history. History Social History Marital Status: Single Spouse Name: N/A Number of Children: N/A Years of Education: N/A Occupational History Not on file. Social History Main Topics Smoking status: Current Everyday Smoker Smokeless tobacco: Not on file Alcohol Use: 3.6 oz/week 6 Cans of beer per week Drug Use: Yes Special: Marijuana Sexually Active: Other Topics Concern Not on file Social History Narrative No narrative on file History Smoking status Current Everyday Smoker Smokeless tobacco Not on file History Alcohol Use 3.6 oz/week 6 Cans of beer per week PHYSICAL EXAM Vital Signs: BP 144/95 | Pulse 109 | Temp(Src) 101.2 F (38.4 C) (Oral) | Resp 18 | Ht 1.702 m (5' 7" ) | Wt 63.504 kg (140 lb) | BMI 21.93 kg/m2 | SpO2 96% General Appearance: Alert, cooperative, no distress, appears stated age Head: Normocephalic, without obvious abnormality, atraumatic Eyes: PERRL, conjunctiva/corneas clear, EOM's intact. Ears: Normal external ear canals, both ears Nose: Nares normal, septum midline, mucosa normal, no drainage or sinus tenderness Throat: Lips, mucosa, and tongue normal; teeth and gums normal Neck: Supple, symmetrical, trachea midline, thyroid: no enlargement/tenderness/nodules ; no carotid bruit or JVD Back: Symmetric, no curvature, ROM normal, no CVA tenderness Lungs: Clear to auscultation bilaterally, respirations unlabored Chest Wall: No tenderness or deformity Heart: Regular rate and rhythm, S1 and S2 normal, no murmur, rub or gallop Abdomen: Soft, mildly tender in RUQ, bowel sounds active all four quadrants, no masses, no organomegaly Genitalia: Deferred Rectal: Deferred Extremities: Extremities normal, atraumatic, no cyanosis or edema Pulses: 2+ and symmetric all extremities Skin: Skin color, texture, turgor normal, no rashes or lesions Lymph nodes: Cervical, supraclavicular, and axillary nodes normal Neurologic: CNII-XII intact, normal strength, sensation and reflexes throughout DATA Results Procedure Component Value Units Flag Date/Time Type and crossmatch x 2 units [[id number]] Collection: 07/28/112311 Resulted: 07/29/1117 Specimen Type: Blood ARM BAND NUMBER [id number] ARM BAND NUMBER Result: Testing performed at [facility];[address] [facility];[place] [address] ABO/RH(D) O POSITIVE ABO/RH(D) Result: Testing performed at [facility];[address] [place] [address] ANTIBODY SCREEN NEGATIVE ANTIBODY SCREEN Result: Testing performed at [facility];[address] [place] [address] UNIT NUMBER [id number] BLOOD COMPONENT TYPE Result: [employer] UNIT DIVISION 00 STATUS OF UNIT ALLOCATED TRANSFUSION STATUS Result: OK TO TRANSFUSE CROSSMATCH RESULT COMPATIBLE UNIT NUMBER [id number] BLOOD COMPONENT TYPE Result: LEUKODEPLETED PC UNIT DIVISION 00 STATUS OF UNIT ALLOCATED TRANSFUSION STATUS Result: OK TO TRANSFUSE CROSSMATCH RESULT COMPATIBLE Alcohol, Ethyl [[id number]] Collection: 07/28/112311 Resulted: 07/29/11 0014 ALCOHOL,ETHYL <3 mg/dL CBC with differential [[id number]] Abnormal Collection: 07/28/112311 Resulted: 07/28/112351 Specimen Type: Blood Specimen Source: Arm, Right WBC 6.7 K/uL RBC 2.94 M/uL L HGB 8.9 g/dL L HCT 27.0 % L MCV 91.9 fl MCH 30.1 pg MCHC 32.8 g/dL RDW SD 54.7 fl H PLT 45 K/uL LL MPV 8.4 fl DIFF TYPE AUTOMATED NEUTROPHILS 86.0 % H LYMPHOCYTES 5.6 % L MONOCYTES 7.0 % EOSINOPHILS 0.2 % BASOPHILS 1.2 % NEUTROPHILS ABS 5.8 K/uL LYMPHOCYTES ABS 0.4 K/uL L MONOCYTES ABS 0.5 K/uL EOSINOPHILS ABS 0.0 K/uL BASOPHILS ABS 0.1 K/uL Platelet Estimate DECREASED Diff Comment Result: SLIDE SCANNED, AGREES WITH AUTOMATED RESULTS. MORPHOLOGY Result: NORMAL RBC MORPH Comprehensive metabolic panel [[id number]] Abnormal Collection: 07/28/112311 Resulted: 07/28/112338 Specimen Type: Blood Specimen Source: Arm, Right SODIUM 144 mmol/L POTASSIUM 3.9 mmol/L CHLORIDE 111 mmol/L H CO2 21 mmol/L L ANION GAP AGAP 16 mmol/L GLUCOSE 91 mg/dL BUN 9 mg/dL CREATININE 0.7 mg/dL BUN/CREAT 13 CALCIUM 7.8 mg/dL L TOTAL PROTEIN 7.7 g/dL Albumin 2.6 g/dL L GLOBULIN 5.0 g/dL H A/G 0.5 L TBIL 1.3 mg/dL ALK PHOS 126 U/L H AST 56 U/L H ALT 22 U/L EGFR >60 mL/min/1.73m2 Amylase [[id number]] Abnormal Collection: 07/28/112311 Resulted: 07/28/112338 Specimen Type: Blood Specimen Source: Arm, Right AMYLASE 321 U/L H Lipase [[id number]] Collection: 07/28/112311 Resulted: 07/28/112338 Specimen Type: Blood Specimen Source: Arm, Right LIPASE 90 U/L aPTT [[id number]] Collection: 07/28/112311 Resulted: 07/28/112332 Specimen Type: Blood Specimen Source: Arm, Right APTT 32 seconds Protime [[id number]] Collection: 07/28/112311 Resulted: 07/28/112331 Specimen Type: Blood Specimen Source: Arm, Right INR 1.4 IMAGING: No results found. EKG: PROBLEM LIST Principal Problem: *GI bleed Active Problems: Alcohol withdrawal Thrombocytopenia, unspecified Anemia Alcohol withdrawal seizure PLAN Admit in hospital as inpatient Will put her on CIWA protocol for alcohol withdrawal Will also put her on thiamine 100 mg and folic acid 1 mg daily Will hydrate her with D5.45 NS at 75 cc/hour Will monitor h/H q 6 hour and may transfuse PRBC if hematocrit drops less than 25% Will also given her vitamin K 10 mg sq daily for 3 days Will cont on protonix and octreotide infusion GI consultation done with dr griffith, he spoke with patient and patient refused for endoscopy at this time, will cont above treatment Monitor platelet cont which is suspected to be secondary to liver disease Will do SCD for DVT prophylaxis and avoid heparin since patient has GI bleed Primary Care Physician: BRANDI LEONARDO MD, MD LASHA MÁRQUEZ MD 07/29/2011 1:07 AM documente d in this encounter Consult Notes Mitchell Griffith MD - 07/29/2011 12:51 AM PDT Consult* by Mitchell Griffith IV, MD at 07/29/1150 Author: Mitchell Griffith IV, MD Service: (none) Author Type: Physician Filed: 07/29/11 0119 Date of Service: 04/21/12 0051 Status: Signed College And Career Counselor: Mitchell Griffith IV, MD (Physician) [facility] Service: Gastroenterology Initial Consult Note Date of Admission: 07/28/2011 Reason for Consultation: Alcoholic, vomited blood, history remotely of varices Requesting Physician: Dr. Greenfield, Emergency Department History Obtained From: patient CHIEF COMPLAINT: Seizure this morning, threw up blood this am HISTORY OF PRESENT ILLNESS The patient is a 41 y.o. female with significant past medical history of chronic alcoholism who presented to [place] ED with seizure this am after missing alcohol - "ran out" - deve maryd limited episode of hematemesis this evening and do to remote history of varices transf erred here for further management. Denies melena, reflux, weight loss. Has "an ulcer" based on chronic epigastric pain. DT about 5 years ago when went to nursing home. No dysphagia. Fever note d on ED presentation but she denies cough or sputum. REVIEW OF SYSTEMS Review of Systems Constitutional: Positive for fever and fatigue. HENT: Negative for trouble swallowing. Respiratory: Positive for shortness of breath (mild). Gastrointestinal: Negative for nausea, vomiting, diarrhea, constipation, blood in stool and anal bleeding. Abdominal pain: epigastric. Neurological: Seizures: this am. [all other systems reviewed and are negative No past medical history on file. 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 No Known Allergies (Not in a hospital admission) Scheduled Medications sodium chloride 3 mL Intravenous Q8H DISCONTD: sodium chloride 3 mL Intravenous Q8H Continuous Infusions octreotide (SANDOSTATIN) infusion 25 mcg/hr (07/29/1115) pantoprozole (PROTONIX) infusion 8 mg/hr (07/29/1115) PRN Medications acetaminophen No family history on file. History Social History Marital Status: Single Spouse Name: N/A Number of Children: N/A Years of Education: N/A Occupational History Not on file. Social History Main Topics Smoking status: Current Everyday Smoker Smokeless tobacco: Not on file Alcohol Use: 3.6 oz/week 6 Cans of beer per week Drug Use: Yes Special: Marijuana Sexually Active: Other Topics Concern Not on file Social History Narrative No narrative on file PHYSICAL EXAM Vital Signs: BP 144/95 | Pulse 109 | Temp(Src) 101.2 F (38.4 C) (Oral) | Resp 18 | Ht 1.702 m (5' 7" ) | Wt 63.504 kg (140 lb) | BMI 21.93 kg/m2 | SpO2 96% Temp: [101.2 F (38.4 C)-101.6 F (38.7 C)] 101.2 F (38.4 C) (07/28 16) BP: (144-157)/(75-96) 144/95 mmHg (07/29 47) Heart Rate: [109-114] 109 (07/29 47) Resp: [18-20] 18 (07/29 47) SpO2: [94 %-97 %] 96 % (07/29 47) Height: [170.2 cm (5' 7")] 170.2 cm (5' 7") (07/27 2250) Weight: [63.504 kg (140 lb)] 63.504 kg (140 lb) (07/27 2250) BMI (Calculated): [22] 22 (07/27 2250) Physical Exam [vitalsreviewed. Constitutional: She is oriented to person, place, and time. No distress. Fatigued but easily arousable, appearance of poor nutrition HENT: Head: Normocephalic and atraumatic. Mouth/Throat: No oropharyngeal exudate. Eyes: EOM are normal. Pupils are equal, round, and reactive to light. Scleral icterus (mild ) is present. Neck: Normal range of motion. Neck supple. No JVD present. No tracheal deviation present. N o thyromegaly present. Tracheostomy scar base of throat Cardiovascular: Regular rhythm and normal pulses. Tachycardia present. No murmur heard. Pulmonary/Chest: Effort normal. No stridor. Not tachypneic. No respiratory distress. Crackles bilateral bases Abdominal: Soft. Bowel sounds are normal. She exhibits no distension and no mass. There is tenderness (mild to moderate tender RUQ & epigastrium). There is no rebound and no guarding . Musculoskeletal: She exhibits no edema and no tenderness. Lymphadenopathy: She has no cervical adenopathy. Neurological: She is alert and oriented to person, place, and time. No cranial nerve defici t. She exhibits normal muscle tone. Coordination normal. Skin: Skin is warm. No rash noted. No erythema. Psychiatric: She has a normal mood and affect. Her behavior is normal. Judgment and thought content normal. DATA CBC: Lab Results Component Value Date WBC 6.7 07/28/2011 RBC 2.94* 07/28/2011 HGB 8.9* 07/28/2011 HCT 27.0* 07/28/2011 MCV 91.9 07/28/2011 MCH 30.1 07/28/2011 MCHC 32.8 07/28/2011 RDW 54.7* 07/28/2011 PLT 45* 07/28/2011 MPV 8.4 07/28/2011 DIFFTYPE AUTOMATED 07/28/2011 CMP: Lab Results Component Value Date NA 144 07/28/2011 K 3.9 07/28/2011 CL 111* 07/28/2011 CO2 21* 07/28/2011 ANIONGAP 16 07/28/2011 GLUF 91 07/28/2011 BUN 9 07/28/2011 CREATININE 0.7 07/28/2011 BCR 13 07/28/2011 CA 7.8* 07/28/2011 PROT 7.7 07/28/2011 ALB 2.6* 07/28/2011 GLOB 5.0* 07/28/2011 BILITOT 1.3 07/28/2011 ALP 126* 07/28/2011 AST 56* 07/28/2011 ALT 22 07/28/2011 EGFR >60 07/28/2011 PT/INR: Lab Results Component Value Date INR 1.4 07/28/2011 PTT: Lab Results Component Value Date APTT 32 07/28/2011 [APTT Amylase: Lab Results Component Value Date AMYLASE 321* 07/28/2011 Lipase: Lab Results Component Value Date LIPASE 90 07/28/2011 PROBLEM LIST Active Problems: * No active hospital problems. * ASSESSMENT & PLAN Limited episode of hematemesis and remote history of varices per ED physician from community [facility] facility and mild hematemesis this am per patient. This occuring in woman with chronic alc oholism with seizure this am after missing alcohol today. Possibilities include varices, ulc ers, esophagitis, gastritis, MWT, neoplasm among others. EGD strongly recommended to guide c are and potential therapeutics if indicated. Explained carefully multiple times to patient. She repeatedly claims only had small amount of bleeding with vomiting this am and refuses EG D at this time. Witnessed by ED nurse. Recommendations 1. Continue octreotide and pantoprazole infusions 2. Ice chips for now 3. Serial H/H 4. Vitamin K, MVT, thiamine 5. Withdrawal precautions / protocol as felt appropriate 6. Evaluation of fever as appropriate 7. Will evaluate tomorrow and again discuss willingness for evaluation - will hold off on E GD as noted above Code Status: No Order Primary Care Physician: BRANDI LEONARDO MD, MD Thank you for allowing me to participate in the care of this patient. I will continue to follow with you. AMA GRIFFITH MD 07/29/2011 documented in th is encounter ED Notes Conversion Transaction, Provider Unknown - 07/29/2011 12:33 AM PDTFormatting of this note m ight be different from the original. ED Notes by Liberty Gonzáles RN at 07/29/1132 Author: Liberty Gonzáles RN Service: Emergency Department Author Type: Registered Nurse Filed: 07/29/1133 Date of Service: 07/29/1132 Status: Signed College And Career Counselor: Liberty Gonzáles RN (Registered Nurse) hospitalist at bedside Liberty Gonzáles RN 07/29/1133 onver miriam Transaction, Provider Unknown - 07/28/2011 11:42 PM PDT ED Notes by Clarissa Eckert at 07/28/112341 Author: Clarissa Eckert Service: (none) Author Type: (none) Filed: 07/28/112343 Date of Service: 07/28/112341 Status: Signed College And Career Counselor: Clarissa Eckert (Medical Lab Technician) Dr Arnold's answering service called, Dr [place] is composition molder and responded. onver miriam Transaction, Provider Unknown - 07/28/2011 11:27 PM PDT ED Notes by Madelyn Rodgers RN at 07/28/112326 Author: Madelyn Rodgers RN Service: (none) Author Type: Registered Nurse Filed: 07/28/112327 Date of Service: 07/28/112326 Status: Signed College And Career Counselor: Madelyn Rodgers RN (Registered Nurse) Critical result of 45 on lab Plt was called to ED by Lashaun in laboratory at time 2327. Noti fied Dr. Greenfield of critical value. Madelyn Rodgers RN 07/28/112327 eovanny Ramos DO - 07/28/2011 10:48 PM PDTFormatting of this note might be different from the or iginal. ED Provider Notes by Geovanny Greenfield DO at 07/28/112247 Author: Geovanny Greenfield DO Service: (none) Author Type: Physician Filed: 07/30/111943 Date of Service: 07/28/112247 Status: Signed College And Career Counselor: Geovanny Greenfield DO (Physician) [facility] Department of Emergency Medicine 07/28/2011 History of Present Illness Patient Identification Shaila Son is a 41 y.o. female. Patient information was obtained from patient. History/Exam limitations: none. Patient presented to the Emergency Department by: Ambulance BRANDI LEONARDO MD, MD Chief Complaint Chief Complaint Patient presents with GI Bleeding Transfer from [facility] 22:48. Pt presents to the ED after seizure that occurred today. Seizure occurred at home an d pt went to [facility] for evaluation. She does have history of seizures. Onset of sympt oms was abrupt. Pt had an episode of coffee ground emesis while she was admitted at [facility] and was transferred here for further treatment of "GI bleed." H&H were also low. Sever ity is described as moderate. Pt currently complains of mild frontal headache. The patient r eports nothing worsens symptoms, and nothing relieves symptoms. Pt admits to history of 2 24 ounce beers daily and has been drinking for "about a year." Pt denies facial pain, rhinorrhea, sore throat, chest pain, dyspnea, abdominal pain, skin r latosha, paresthesias, myalgias/arthralgias, gait abnormalities, lymphadenopathy, or new bruisin g. Past Medical History Diagnosis Date Hemorrhage of gastrointestinal tract, unspecified Liver disease History reviewed. No pertinent past surgical history. Prior to Admission medications Not on File No Known Allergies History Social History Marital Status: Single Spouse Name: N/A Number of Children: N/A Years of Education: N/A Occupational History Not on file. Social History Main Topics Smoking status: Current Everyday Smoker Smokeless tobacco: Not on file Alcohol Use: 3.6 oz/week 6 Cans of beer per week Drug Use: Yes Special: Marijuana Sexually Active: Other Topics Concern Not on file Social History Narrative No narrative on file History reviewed. No pertinent family history. Review of Systems Constitutional: Positive for: fever Cardiovascular: Negative for: palpitations or chest pain Respiratory: Negative for: cough or shortness of breath Gastrointestinal: Negative for: abdominal pain Positive for: coffee ground emesis Genitourinary: Negative for: dysuria, flank pain, or hematuria. Musculoskeletal: Negative for: myalgias, joint pain, or restricted range of motion Skin: Negative for: laceration, rash, or lesion Neuro and psych: Positive for: headache and seizures All other systems were reviewed and are subjectively reported as negative. Physical Exam BP 157/96 | Pulse 113 | Temp(Src) 101.6 F (38.7 C) (Oral) | Resp 18 | Ht 1.702 m (5' 7" ) | Wt 63.504 kg (140 lb) | BMI 21.93 kg/m2 | SpO2 97% Vitals: Hypertensive, tachycardic, and febrile. Pulse Oximetry Interpretation: Normal General: Alert but sleepy appearing, requires repeated questioning before giving answers, E ROMINA distillates odor present Eyes: Pupils equal and round, scleral icterus present ENT: Ears normal Dried blood in bilateral nostrils, no epistaxis currently present Moist but pale mucous membranes Neck: Normal inspection Supple Full ROM No signs of meningismus CVS: Rate normal, 1/5 systolic ejection murmur Respiratory: Breath sounds normal bilaterally, normal chest rise and fall, no respiratory d istress Abdomen: Soft, non-distended Mild suprapubic tenderness Genitourinary: Vaginal bleeding currently present (JAIME Koenig, present for examination) Back: Moves without difficulty Extremities: Moves all extremities No peripheral edema, no calf tenderness to compression Distal pulses palpable in all extremities Skin: Color normal Hot and dry Neuro: No gross motor/sensory deficits noted Medical Decision Making and Emergency Department Course ED Department Course 22:48. Pt presents to the ED after seizure that occurred today. Seizure occurred at home an d pt went to [facility] for evaluation. She does have history of seizures. Pt had an epis ode of coffee ground emesis there and was transferred here. H&H were also low as described i n HPI. On initial vital signs pt is tachycardic, febrile, and hypertensive. 22:51. Reviewed chart from [facility]. HGB of 9.3 and HCT of 27.6. Platelet count of 40. Pt was started on Octreotide bolus and was given 80 mg of Protonix at [facility]. Pt did have a seizure there in the ER and was given 1 mg of Ativan. 23:12. Will order EKG, INR, PTT, amylase, lipase, CBC, CMP, UDS, and etoh level. Will also order IV fluids. 23:35. Will place call to composition molder GI. 23:40. Reviewed lab results. Hypocalcemia. Amylase elevated at 321. 23:41. Discussed pt's case with Dr. Griffith, GI, who will come see the pt in the ED. 23:52. Reviewed CBC. Platelet count is low at 45. HGB has decreased from prior to 8.[address] has decreased from prior to 27.0. Dr. Griffith aware. 23:58. Will admit pt at this time and place call to hospitalist. 00:01. Will order CXR and blood culture. 00:17. Discussed pt's case with Dr. Márquez, hospitalist, who will see the pt. 00:34. Will order urine micro. 01:30. Reviewed CXR. Right perihilar fullness. Otherwise no abnormalities seen. 01:45. Reviewed labs. Positive for benzodiazepine and THC. HGB of 8.9 and HCT of 27.0. Low platelet count of 45. Albumin of 2.6. Alk phos and AST elevated. Elevated amylase. Records Reviewed Nursing notes. No prior ED visits. Chart from [facility] Laboratory Evaluation Results Procedure Component Value Ref Range Flag Date/Time Urine Microscopic [[id number]] Abnormal Collection: 04/21/12 0031 Order Status: Completed Resulted: 07/29/117 Specimen Type: Urine WBC 6-10 0 - 5 /hpf RBC 26-50 0 - 2 /hpf EPITHELIAL 26-50 /lpf BACTERIA 4+ NONE SEEN A Urine Drug Screen [[id number]] Abnormal Collection: 07/29/1130 Order Status: Completed Resulted: 07/29/11131 Specimen Type: Urine AMPHETAMINE NEGATIVE NEGATIVE OPIATES NEGATIVE NEGATIVE BARBITUATES NEGATIVE NEGATIVE PCP NEGATIVE NEGATIVE BENZODIAZEPINE POSITIVE NEGATIVE A THC POSITIVE NEGATIVE A COCAINE NEGATIVE NEGATIVE TRICYCLIC ANTIDEPRESS NEGATIVE NEGATIVE ACETAMINOPHEN/PARACET NEGATIVE NEGATIVE METHAMPHETAMINES NEGATIVE NEGATIVE METHADONE NEGATIVE NEGATIVE Alcohol, Ethyl [[id number]] Collection: 07/28/112311 Order Status: Completed Resulted: 07/29/11 0014 ALCOHOL,ETHYL <3 <10 mg/dL CBC with differential [[id number]] Abnormal Collection: 07/28/112311 Order Status: Completed Resulted: 07/28/112351 Specimen Type: Blood Specimen Source: Arm, Right WBC 6.7 4.0 - 11.0 K/uL RBC 2.94 3.80 - 5.20 M/uL L HGB 8.9 11.6 - 15.5 g/dL L HCT 27.0 35.0 - 46.0 % L MCV 91.9 80.0 - 100.0 fl MCH 30.1 27.0 - 34.0 pg MCHC 32.8 32.0 - 35.5 g/dL RDW SD 54.7 37 - 53 fl H PLT 45 150 - 400 K/uL LL MPV 8.4 fl DIFF TYPE AUTOMATED NEUTROPHILS 86.0 40 - 80 % H LYMPHOCYTES 5.6 15 - 45 % L MONOCYTES 7.0 0 - 12 % EOSINOPHILS 0.2 0 - 7 % BASOPHILS 1.2 0 - 2 % NEUTROPHILS ABS 5.8 2.0 - 7.3 K/uL LYMPHOCYTES ABS 0.4 1.0 - 3.4 K/uL L MONOCYTES ABS 0.5 0 - 0.8 K/uL EOSINOPHILS ABS 0.0 0 - 0.5 K/uL BASOPHILS ABS 0.1 0 - 0.1 K/uL Platelet Estimate DECREASED Diff Comment Result: SLIDE SCANNED, AGREES WITH AUTOMATED RESULTS. MORPHOLOGY Result: NORMAL RBC MORPH Comprehensive metabolic panel [[id number]] Abnormal Collection: 07/28/112311 Order Status: Completed Resulted: 07/28/112338 Specimen Type: Blood Specimen Source: Arm, Right SODIUM 144 135 - 145 mmol/L POTASSIUM 3.9 3.5 - 5.0 mmol/L CHLORIDE 111 98 - 109 mmol/L H CO2 21 23 - 32 mmol/L L ANION GAP AGAP 16 5 - 20 mmol/L GLUCOSE 91 65 - 99 mg/dL BUN 9 7 - 23 mg/dL CREATININE 0.7 0.6 - 1.2 mg/dL BUN/CREAT 13 CALCIUM 7.8 8.5 - 10.5 mg/dL L TOTAL PROTEIN 7.7 6.4 - 8.3 g/dL Albumin 2.6 3.5 - 5.0 g/dL L GLOBULIN 5.0 1.3 - 4.9 g/dL H A/G 0.5 1.0 - 2.4 L TBIL 1.3 0.1 - 1.5 mg/dL ALK PHOS 126 38 - 110 U/L H AST 56 5 - 40 U/L H ALT 22 5 - 50 U/L EGFR >60 >60 mL/min/1.73m2 Amylase [[id number]] Abnormal Collection: 07/28/112311 Order Status: Completed Resulted: 07/28/112338 Specimen Type: Blood Specimen Source: Arm, Right AMYLASE 321 25 - 115 U/L H Lipase [[id number]] Collection: 07/28/112311 Order Status: Completed Resulted: 07/28/112338 Specimen Type: Blood Specimen Source: Arm, Right LIPASE 90 73 - 393 U/L aPTT [[id number]] Collection: 07/28/112311 Order Status: Completed Resulted: 07/28/112332 Specimen Type: Blood Specimen Source: Arm, Right APTT 32 25 - 37 seconds Protime [[id number]] Collection: 07/28/112311 Order Status: Completed Resulted: 07/28/112331 Specimen Type: Blood Specimen Source: Arm, Right INR 1.4 0.9 - 3.5 Radiology and EKG Evaluation Imaging Results XR Chest PA and Lateral (Preliminary result) Result time:07/29/11129 ED Interpretation Documented by Geovanny Greenfield DO (07/29/11129, [facility] Emergency Department, Emergency Medicine) This ED initial read occurred during the ED course and management. The ED interpretation at the time the patient was being clinically managed, and prior to the radiology final read interpretation was: 2 view chest pa & lat. Prior films for comparison: None. Good technique. Normal cardiac silhouette, no infiltrates, normal mediastinum, normal great vessels, no soft tissue abnormalities. Right meaghan-hilar fullness. The imaging was independently viewed by me and interpreted contemporaneously by me. Geovanny Greenfield D.O. Labs and imaging reviewed. All pertinent positives noted and addressed. Results have been discussed with the patient. EKG time: 23:07 Rate: 109 Rhythm: Sinus tachycardia [place]: LAD VALENTIN: normal QRS: normal ST waves: Nonspecific ST wave changes Other: Inverted T wave in V2 No prior EKG for comparison Acute ischemia suggested: no Independently reviewed and interpreted contemporaneously by myself. Geovanny Greenfield DO ED Diagnoses Final diagnoses GI bleed Seizure Alcohol withdrawal Blood loss anemia Fever Thrombocytopenia Elevated amylase Marijuana abuse Disposition: Admit Additional Documentation Procedures Attending Note: Documentation assistance provided by Yumi Grande (Scribe). Information recorded by the scribe has been reviewed and validated by me. I ag ree with its contents. DO Geovanny Davalos DO 07/30/111943 onversion Transactio n, Provider Unknown - 07/28/2011 9:55 PM PDT ED Notes by Madelyn Rodgers RN at 07/28/112154 Author: Madelyn Rodgers RN Service: (none) Author Type: Registered Nurse Filed: 07/28/112155 Date of Service: 07/28/112154 Status: Signed College And Career Counselor: Madelyn Rodgers RN (Registered Nurse) 41 yo female, c/o seizures. Hx of etoh. 1 episode of seizing. Vomited approx 500ml blood. Madelyn Rodgers RN 07/28/112155 docume nted in this encounter Miscellaneous Notes Op Note - Mitchell Griffith MD - 07/30/2011 2:43 PM PDT Op Note by Mitchell Griffith IV, MD at 07/30/11 1441 Author: Mitchell Griffith IV, MD Service: (none) Author Type: Physician Filed: 07/30/11 7877 Date of Service: 07/30/111442 Status: Signed College And Career Counselor: Mitchell Griffith IV, MD (Physician) Related Notes: Original Note by Mitchell Griffith IV, MD (Physician) filed at 07/30/11 1 454 [facility] Service: Gastroenterology ENDOSCOPY SUITE PROCEDURE NOTE Esophagogastroduodenoscopy Procedure: EGD Indications: Limited hematemesis, GI bleeding Consent: The benefits, risks (bleeding, perforation, infection and reaction to medication) , and alternatives to the procedure were discussed and informed consent was obtained from th e patient. Preparation: EKG, pulse, pulse oximetry, and blood pressure were monitored throughout the procedure.ASA 2 - Patient with mild systemic disease with no functional limitations I: Ful l visibility of tonsils, uvula and soft palate Medications: Versed 10 mg IV, Fentanyl 100 mcg IV, benadryl 50 mg IV Procedure: The gastroscope was passed through the mouth under direct visualization and was advanced with ease to the 2nd portion of the duodenum. Retroflex exam performed in the fund us. The scope was withdrawn and the mucosa was carefully examined. The views were good. Ther e were no apparent complications. Findings: Once the patient was adequately sedated, the endoscope was inserted through the patient's mouth into the oral cavity and the esophagus was intubated. The esophagus in its entirety was relatively normal with the GE junction estimated at about 40 cm. I really did not see any clinically relevant esophageal varices at this time. No erosive esophagitis, no Felecia-Velasquez tear. The stomach was then entered and immediately apparent was clear fluid throughout with no recent or older blood present. There was a diffuse gastropathy including up into the fundic area, but no gastric varices evident. In the antrum, there were a number of superficial erosions in an almost nodular appearance, but none that would reach criteria for ulceration. Duodenal bulb, descending duodenum visually looked normal. Again, no evidence of recent or old blood present. The patient tended to struggle a fair amount with the scope, and I did not feel biopsies were relevant at this point, so the procedure was limited and scope withdrawn at this point. Overall, she seemed to tolerate the procedure reasonably well and there were no immediate apparent complications noted. Impression: 1. Diffuse gastropathy, few antral erosions. No gastric varices. 2. No significant esophageal varices. 3. No old or new blood in stomach. Complications: None; patient tolerated the procedure well. EBL: none Recommendations: 1. Can stop octreotide 2. pantoprazole 40mg po daily 3. Regular diet 4. Could probably send home when other medical issues settled/stable AMA GRIFFITH MD 07/30/2011 documented in th is encounter Plan of Treatment Not on filedocumented as of this encounter Procedures + +--------+ + + + | Procedure Name | Priori | Date/Time | Associated Diagnosis | Comments | | | ty | | | | + +--------+ + + + | XR CHEST 2 VIEWS | Routin | 07/29/2011 | | Results for this | | | e | 1:24 AM | | procedure are in the | | | | PDT | | results section. | + +--------+ + + + | CULTURE, BLOOD, 2ND | Timed | 07/29/2011 | | Results for this | | SPECIMEN (NON-ORD) | | 12:11 AM | | procedure are in the | | | | PDT | | results section. | + +--------+ + + + | CULTURE, BLOOD | Timed | 07/29/2011 | | Results for this | | | | 12:02 AM | | procedure are in the | | | | PDT | | results section. | + +--------+ + + + documented in this encounter Results XR Chest 2 Vws (07/29/2011 1:24 AM PDT) + + | Specimen | + + | | + + + + + | Narrative | Performed At | + + + | HISTORY: 41 years. Female. Fever. TECHNIQUE: Dual energy | | | frontal and a lateral chest radiograph. COMPARISON: None. | | | FINDINGS: Probable bilateral perihilar peribronchial cuffing is noted | | | suggesting bronchitis. Tiny nodular opacities in the upper lung | | | montoya are seen, peripherally, primarily left upper lobe, with subtle | | | reticulonodular opacity in this region not excluded. No significant | | | focal infiltrate is found. No pneumothorax is seen. The cardiac | | | silhouette and pulmonary vasculature are normal. No bone lesions are | | | found. IMPRESSION: 1. Subtle reticulonodular opacity in the | | | upper lung montoya particularly on the left, which could suggest | | | atypical infection. Consider follow-up films for resolution. 2. | | | Chronic suggest probable bronchitis. | | + + + + + | Procedure Note | + + | Jermaine, Rad Conversion - 11/30/2018 2:53 AM PDT HISTORY:41 years. Female. Fever. | | TECHNIQUE:Dual energy frontal and a lateral chest radiograph. COMPARISON:None. | | FINDINGS:Probable bilateral perihilar peribronchial cuffing is noted suggesting | | bronchitis. Tiny nodular opacities in the upper lung montoya are seen, peripherally, | | primarily left upper lobe, with subtle reticulonodular opacity in this region not | | excluded. No significant focal infiltrate is found. No pneumothorax is seen. The cardiac | | silhouette and pulmonary vasculature are normal. No bone lesions are found. | | IMPRESSION:1. Subtle reticulonodular opacity in the upper lung montoya particularly on | | the left, which could suggest atypical infection. Consider follow-up films for | | resolution. 2. Chronic suggest probable bronchitis. | |significant focal infiltrate is found. No pneumothorax is seen. The cardiac silhouette and pulmonary vasculature are normal. No bone lesions are found. | | | |IMPRESSION: | |1. Subtle reticulonodular opacity in the upper lung montoya particularly on the left, which could suggest atypical infection. Consider follow-up films for resolution. | | | |2. Chronic suggest probable bronchitis. | | | | | + + Culture, Blood, 2nd Specimen (07/29/2011 12:11 AM PDT) + + | Specimen | + + | Blood specimen | | (specimen) | + + + + + | Narrative | Performed At | + + + | Specimen Description BLOOD SPECIAL | EXTERNAL LAB | | REQUESTS LEFT FOREARM | | | Testing performed at [facility];[address] | | | [facility];[place] [address] CULTURE | | | NO GROWTH IN 5 DAYS. | | | Testing performed at [facility] [address];[place] [address] | | | REPORT STATUS 08/03/2011 FINAL | | + + + + +---------+ + + | Performing | Address | City/State/Zipcode | Phone Number | | Organization | | | | + +---------+ + + | EXTERNAL LAB | | | | + +---------+ + + Culture, Blood (07/29/2011 12:02 AM PDT) + + | Specimen | + + | Blood specimen | | (specimen) | + + + + + | Narrative | Performed At | + + + | Specimen Description BLOOD SPECIAL | EXTERNAL LAB | | REQUESTS RIGHT AC | | | Testing performed at [facility];[address] | | | [address];[place] [address] CULTURE | | | NO GROWTH IN 5 DAYS. 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
--- OUTSIDE RECORDS SUMMARY | ~2020-01-12 | XMS | Encounter Summary ---
Demographics + + + | Address | [address] | | | [place] [address] | + + + | Home Phone [...] Author + + + | Author | [facility] | | | and [place] | + + + | Organization | [facility] | | | and [place] | + + + | Address | Unknown | + + + | Phone | Unavailable | + + + Support + + + + + | Name | Relationship | Address | Phone | + + + + + | Joanne Pham | ECON | [address] | | | | | [place] | | | | | [address] | | + + + + + | Viktor Son | EDDIE | Unknown | | + + + + + | Edd Gill | ECON | Unknown | | + + + + + | Conner Barber | ECON | Unknown | | + + + + + Care Team Providers + +------+ + | Care Vending Machine Filler Name | Role | Phone | + +------+ + | Trixie Rose PA-C | PCP | | + +------+ + Encounter Details +--------+ + + + + | Date | Type | Department | Care Team | Description | +--------+ + + + + | 08/25/ | Hospital | [facility] | Paulina Wu MD | Hematemesis with | | 2019 - | Encounter | [facility] | [address] | nausea; Alcohol | | | | CARE FLOOR [address] | [place] [address] | withdrawal syndrome | | 09/05/ | | [address] | [phone] | with complication | | 2019 | | [place], [place] | | (HCC); Ascites due | | | | [phone] | | to alcoholic | | | | [phone] | | cirrhosis (HCC); | | | | | | Non-intractable | | | | | | vomiting with | | | | | | nausea, unspecified | | | | | | vomiting type; | | | | | | Alcoholic cirrhosis | | | | | | of liver with | | | | | | ascites (HCC); | | | | | | Thrombocytopenia | | | | | | (HCC); Portal | | | | | | hypertension (HCC) | +--------+ + + + + [...] + + + | Blood Pressure | 142/67 | 09/05/2018 7:31 AM | | | | | PDT | | + + + + + | Pulse | 75 | 09/05/2018 7:31 AM | | | | | PDT | | + + + + + | Temperature | 37.2 C (98.9 F) | 09/05/2018 7:31 AM | | | [...] + + + + | Weight | 60.4 kg (133 lb 1.6 | 09/05/2018 7:31 AM | | | | oz) | PDT | | + + + + + | Height | 170.2 cm (5' 7") | 09/05/2018 7:31 AM | | | | | PDT | | + + + + + | Body Mass Index | 20.85 | 09/05/2018 7:31 AM | | | [...] documented as of this encounter Discharge Summaries Ha Aguayo MD - 09/04/2018 1:45 PM PDTFormatting of this note might be different fr om the original. Discharge Summaries by Ha Aguayo MD at 09/04/18 1345 Author: Ha Aguayo MD Service: Hospitalist Author Type: Physician Filed: 10/08/1849 Date of Service: 09/04/18 1340 Status: Addendum Recovery Unit Operator: Ha Aguayo MD (Physician) Related Notes: Original Note by Ha Aguayo MD (Physician) filed at 09/04/18 1476 [facility] Service: Hospitalist Discharge Summary Date of Admission: 08/25/2018 Date of Discharge: 09/05/2018 Discharge Provider: Ha Aguayo MD Attending Provider: Ha Aguayo MD Treatment Team: Admitting Provider: Paulina Wu MD Discharge Diagnoses: Principal Problem (Resolved): Hemorrhage of gastrointestinal tract, unspecified Active Problems: Thrombocytopenia, unspecified Anemia Seizure disorder, secondary Alcoholic cirrhosis of liver with ascites (HCC) Portal hypertension (HCC) Accelerated hypertension Resolved Problems: Alcohol withdrawal Hypomagnesemia Acute hepatic encephalopathy Alcohol abuse, continuous Electrolyte and fluid disorders not elsewhere classified Procedures: Procedure(s): ESOPHAGOGASTRODUODENOSCOPY BRIEF HISTORY OF PRESENTATION: Briefly, 48-year-old female with extensive past medical history most significant for a lcohol abuse, decompensated alcoholic cirrhosis (ascites and esophageal varices status post banding 2010), hypertension and other chronic comorbidities who presents to [facility] from [facility] ER for hematemesis admitted for upper GI bleed. HOSPITAL COURSE: The patient was admitted to regular medical floor. The patient underwent EGD on 08/26 demonstrated normal esophagus, portal hypertensive gastropathy, nonbleeding gastric ulcer with no stigmata of bleeding, unremarkable duodenum. The patient was transitioned from Prot mirna IV to Protonix p.o. twice daily to complete a total of 8 weeks, followed by Protonix 40 mg daily and outpatient GI follow-up with likely repeat EGD. The patient completed a full course of Rocephin, last dose 09/01. The patient's hospital stay was complicated with acute kidney injury patient was discontinued off of spironolactone and Lasix and rifaximin. Pat ient was continued on lactulose and titrated to 2-3 formed bowel movements daily. The patie nt was removed off of rifaximin secondary to noncompliance with lactulose with appropriate r esponse to lactulose as long as patient continues medical compliance. The patient had abdom inal ultrasound which demonstrated significant ascites status post paracentesis with 3 L of fluid removed and subsequent improvement in creatinine with resolution of REAL. SAAG 1.1, caleb dy fluid total protein 2.1 and serum albumin 1.8 likely indicating possibly cirrhotic etio logy of ascites; however, complicated with low serum albumin likely complicating GI picture. The patient was restarted on spironolactone and educated regarding 2 g low-sodium diet. T he patient will be assessed as an outpatient regarding optimization of spironolactone before initiation of Lasix. The patient was treated for acute alcohol withdrawal and maintained o n CIWA protocol, thiamine, folate and multivitamins. Patient's labs demonstrated a ferritin of 204, TIBC of 146 and corrected reticulocyte index demonstrating hyperproliferation, li trinidad indicating principally anemia of chronic disease with possibly superimposed iron defici ency anemia. The patient is to live in [place] with significant other, ambulatory GI refe rral to be provided. The patient is to follow-up with her primary care physician within 1 w nikolski after discharge. The patient was able to reiterate what was discussed verbally demonstr ating understanding. All questions answered. Past Medical History Diagnosis Date Anemia Hemorrhage of gastrointestinal tract, unspecified Hypertension Liver disease Seizures (HCC) Past Surgical History Procedure Laterality Date BACK SURGERY ESOPHAGOGASTRODUODENOSCOPY N/A 07/30/2011 Procedure: ESOPHAGOGASTRODUODENOSCOPY; Surgeon: Mitchell Stewart IV, MD; Location: [facility]; Service: Gastroenterology; Laterality: N/A; anesthesia assist if available since may be difficult to sedate ESOPHAGOGASTRODUODENOSCOPY N/A 08/26/2018 Procedure: ESOPHAGOGASTRODUODENOSCOPY; Surgeon: Mitchell Stewart IV, MD; Location: [facility]; Service: Gastroenterology; Laterality: N/A; Hx of tracheostomy Allergies Allergen Reactions Aspirin Anaphylaxis Pt unable to recall, this information came from [facility] record Lactose Anaphylaxis Pt unable to recall, this information came from [facility] record Ciprofloxacin Other (See Comments) Pt. Unable to recall, this information came from [facility] record Ibuprofen Other (See Comments) Pt. Unable to recall, this information came from [facility] record Prescriptions Prior to Admission Medication Sig Dispense Refill Last Dose Vit-Fe Fumarate-FA ( MULTIVITAMIN & MINERALS W IRON/FA) 27-0.8 MG TABS tablet Take 1 tablet by mouth daily. 30 each 0 More than a month at Unknown time DISCHARGE EXAM Vital Signs: BP 115/77 (BP Location: Right upper arm) | Pulse 71 | Temp 98.4 F (36.9 C) (Oral) | Resp 16 | Ht 1.702 m (5' 7") | Wt 62.8 kg (138 lb 8 oz) | SpO2 97% | ? No | BMI 21.69 kg/m Physical Exam Constitutional: She is oriented to person, place, and time. No acute distress/nontoxic. S itting up in chair. No family at bedside. Neck: supple. Trachea midline. Cardiovascular: Regular rate and rhythm. +2 peripheral pulses at radial sites. Pulmonary/Chest: Effort normal. Good air entry bilaterally. Abdominal: Soft. Bowel sounds are normal. Nontender. Nondistended. No rebound or guardin g. Musculoskeletal: No peripheral edema. Neurological: No cranial nerve deficit. Psychiatric: Anxious. Skin: Warm Vital signs reviewed. DATA Labs, medications, allergies and other treatment team notes reviewed. Imaging reviewed. PLAN 1. Activity: As tolerated 2. Diet: 2 g low-sodium 3. Follow-up: As discussed in detail above and as otherwise indicated at bedside. Disposition: Home Condition: Stable Code Status: DNR/DNI Discharge Instructions Ambulatory referral to Gastroenterology Referral Priority: Routine Referral Type: Consultation Referral Reason: Specialty Services Required Requested Specialty: Gastroenterology Number of Visits Requested: 1 Follow up: LAURENCE Membreno [address] [facility] [address] [place] [address] Schedule an appointment as soon as possible for a visit Post-hospital discharge follow-up Medication List START taking these medications nadolol 40 MG tablet QTY: 30 tablet Refills: 2 Commonly known as: CORGARD Take 1 tablet by mouth daily. Start taking on: 09/05/2018 ondansetron 4 MG disintegrating tablet QTY: 20 tablet Refills: 0 Commonly known as: ZOFRAN-ODT Take 1 tablet by mouth every 6 (six) hours as needed for Nausea for up to 7 days. CHANGE how you take these medications amLODIPine 5 MG tablet QTY: 30 tablet Refills: 1 Commonly known as: NORVASC Take 1 tablet by mouth daily. Start taking on: 09/05/2018 What changed: medication strength lactulose 10 GM/15ML solution QTY: 5400 mL Refills: 0 Commonly known as: CHRONULAC Take 45 mLs by mouth 4 (four) times daily for 30 days. Titrate to form 2-3 bowel movements daily. What changed: how much to take when to take this additional instructions pantoprazole 40 MG tablet QTY: 120 tablet Refills: 0 Commonly known as: PROTONIX Take 1 tablet by mouth 2 (two) times daily before meals for 60 days. What changed: when to take this spironolactone 25 MG tablet QTY: 30 tablet Refills: 0 Commonly known as: ALDACTONE Take 1 tablet by mouth daily. What changed: how much to take CONTINUE taking these medications multivitamin & minerals w iron/FA 27-0.8 MG Tabs tablet QTY: 30 each Refills: 0 Take 1 tablet by mouth daily. thiamine 100 MG tablet QTY: 30 tablet Refills: 2 Commonly known as: VITAMIN B-1 Take 1 tablet by mouth daily. You might also be taking other medications not listed above. If you have questions about an y of your other medications, talk to the person who prescribed them or your Primary Care Pro vider. STOP taking these medications furosemide 40 MG tablet Commonly known as: LASIX magnesium oxide 400 MG tablet Commonly known as: MAG-OX ursodiol 300 MG capsule Commonly known as: ACTIGALL Where to Get Your Medications You can get these medications from any pharmacy Bring a paper prescription for each of these medications amLODIPine 5 MG tablet lactulose 10 GM/15ML solution nadolol 40 MG tablet ondansetron 4 MG disintegrating tablet pantoprazole 40 MG tablet spironolactone 25 MG tablet thiamine 100 MG tablet Discharge took 45 minutes, to include final examination, discussion of admission, and prepa ration of prescriptions, instructions for on-going care, follow-up and documentation of disc harge summary. Ha Aguayo MD 09/04/2018 documented in this encounter Medications at Time of Discharge + + + +---------+ + + | Medication | Sig | Dispensed | Refills | Start | End Date | | | | | | Date | | + + + +---------+ + + | folic acid 1 mg | Take 1 tablet by | 30 | 0 | 05/13/19 | | | tablet | mouth Daily. | tablet | | 18 | | + + + +---------+ + + | furosemide (LASIX) | Take 1 tablet by | 30 | 0 | 05/13/19 | | | 20 mg tablet | mouth Daily. | tablet | | 18 | | + + + +---------+ + + | lactulose 10 g/15 | Take 30 mLs by mouth | 120 mL | 0 | 05/12/19 | | | mL solution | 2 [...] | 0 | 05/13/19 | | | (MAG-OX) 400 mg | mouth Daily. | tablet | | 18 | | | tablet | | | | | | + + + +---------+ + + | Multiple | Take 1 tablet by | | 0 | | | | Vitamins-Minerals | mouth Daily. 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 | | | | | + + + +---------+ + + | pantoprazole | Take 1 tablet by | 30 | 0 | 05/12/19 | | | (PROTONIX) 40 mg | [...] + + + +---------+ + + | amLODIPine | Take 1 tablet by | | 0 | 09/06/19 | | | (NORVASC) 5 mg | mouth daily. | | | 19 | 0 | | tablet | | | | | | + + + +---------+ + + | nadolol (CORGARD) | Take 1 tablet by | | 0 | 09/06/19 | | | 40 mg tablet | mouth daily. | | | 19 | 0 | + + + +---------+ + + documented as of this encounter Progress Notes Conversion Transaction, Provider Unknown - 09/05/2018 10:06 AM PDTFormatting of this note m ight be different from the original. Case Management by Jodie Sebastian RN at 09/05/18 100 Author: Jodie Sebastian RN Service: (none) Author Type: Registered Nurse Filed: 09/05/18 1050 Date of Service: 09/05/18 100 Status: Addendum Recovery Unit Operator: Jodie Sebastian RN (Registered Nurse) Related Notes: Original Note by Jodie Sebastian RN (Registered Nurse) filed a t 09/05/18 100 CM received a call from [employer] at [facility] stating that the pt's insurance auth has been approved and they are able to accept pt today. CM updated pt's significant other [place] on pt's discharge time per pt request. Disposition: [facility] Transportation: facility to transport @ 1100 All orders, signed AVS, and prescriptions have been faxed All DC paperwork completed Patient and family in agreement with discharge plan Medicare important message (Given or N/A): N/A Jodie Sebastian RN onver miriam Transaction, Provider Unknown - 09/05/2018 5:04 AM PDT Nurse Progress Note by Alba Boss RN at 09/05/18 0508 Author: Alba Boss RN Service: (none) Author Type: Registered Nurse Filed: 09/05/18 6756 Date of Service: 09/05/18 050 Status: Signed Recovery Unit Operator: Alba Boss RN (Registered Nurse) Pt A&O x4, forgetful at times. 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 No acute changes overnight, patent midline. Unable to obtain clean urine sample as pt would have BMs at the same time and it would mix. No acute changes overnight. Chart check complete, report to be given to day RN at 0700. Alba Boss RN onver miriam Transaction, Provider Unknown - 09/04/2018 2:37 PM PDT Case Management by Jodie Sebastian RN at 09/04/18 1437 Author: Jodie Sebastian RN Service: (none) Author Type: Registered Nurse Filed: 09/04/18 1443 Date of Service: 09/04/18 143 Status: Signed Recovery Unit Operator: Jodie Sebastian RN (Registered Nurse) CM discussed discharge planning with pt. Pt is stating that she would prefer to go to a SNF for rehab opposed to Home Health. CM contacted [facility] who states she [facility] insurance auth and follow up with CM. onver miriam Transaction, Provider Unknown - 09/04/2018 6:31 AM PDT Nurse Progress Note by Chadwick Murdock RN at 09/04/18630 Author: Chadwick Murdock RN Service: (none) Author Type: Registered Nurse Filed: 09/04/18 0633 Date of Service: 09/04/18630 Status: Signed Recovery Unit Operator: Chadwick Murdock RN (Registered Nurse) Pt has been oriented x3, calling appropriately, and no c/o pain. Urine output has been arou nd 400mls. Vital signs have remained stable. Chart has been reviewed. Chadwick Murdock RN . onver miriam Transaction, Provider Unknown - 09/03/2018 7:27 PM PDT Nurse Progress Note by SN Odilia at 09/03/181926 Author: SN Odilia Service: (none) Author Type: Senior Financial Consultant Filed: 09/03/181937 Date of Service: 09/03/181926 Status: Signed Recovery Unit Operator: SN Odilia (Senior Financial Consultant) Pt abdomen remains distended and soft post paracentesis. Paracentesis site remains clean and dry. Pt has had diminished urine output. Pt is oriented to person, place, and situation but not time. Pt unable to report what the y ear is. VS stable throughout shift. No other acute changes from previous assessment. SN Ortega onver miriam Transaction, Provider Unknown - 09/03/2018 1:36 PM PDT Therapy Progress Note by Hakeem Gramajo PTA at 09/03/18 1336 Author: Hakeem Gramajo PTA Service: (none) Author Type: Service Center Manager Filed: 09/03/18 1418 Date of Service: 09/03/18 1336 Status: Signed Recovery Unit Operator: Hakeem Gramajo PTA (Service Center Manager) PHYSICAL THERAPY TREATMENT NOTE PT Received On: 09/03/18 Reason for Treatment: Deconditioning, LE fracture (GIB, CIWA, recent R tib/fib fx) Requires PT Follow Up: Yes Recommendations: Home Assist, PT Plan Treatment/Interventions: Continue per Primary PT POC Progress: Progressing toward goals Summary Comments: Pt supine in bed when RETAIL EVENT AND SALES ASSISTANT arrives, agreeable to therapy. Therapy focused on incre asing activity tolerance, bed mobility and LE strengthening. Pt demonstrated decreased rowan tance with all activities compared to previous therapy sessions. Pt fatigued quickly during first bout of ambulation however was able to ambulate further with every bout. As pt fatigue s during ambulation she demonstrated an increased forward flexed posture. While performing e yes closed balance during the first bout pt demonstrated a significant increase in sway garcia juice during the second bout demonstrated increased stability. Pt would benefit from continued therapy focusing on increasing activity tolerance, LE strengthening and balance activities. Pt finished therapy in recliner with all needs met. Precautions LE Precaution(s): RLE Precautions/WB RLE: Weight bearing as tolerated (per pt - no formal orders in chart) Other Precautions: fall risk, CIWA Cognition Overall Cognitive Status: Impaired Orientation Level: Disoriented FUNCTIONAL MOBILITY Bed Mobility Supine to Sit: Standby assist - Transfers Sit to/from Stand: Standby assist Ambulation Weight Bearing Status: WBAT RLE, WBAT LLE Maximal Ambulation Distance (feet): 50+100+150 Total Ambulation Distance (feet): 300 Ambulation Assistance: Standby assist Distance limited by?: Patient's ability Pattern: Alternating, Step to, Decreased brigitte, Right swing foot doesn't pass stance foot , Left swing foot doesn't pass stance foot, Forward flexed Assistive Device: Walker front wheeled BALANCE High Level Balance Eyes Closed: Mild increase in sway Eyes Closed Time: 0030 High Level Comments: marching THERAPEUTIC EXERCISE Seated-Exercise Type: Ankle pumps, Seated marching, Long arc quads, Ball squeeze (glute set s) Activity Tolerance: Patient limited by fatigue Nurse Made Aware: yes Safety Devices in Place: (Call light in reach, chair alarmed) The patient demonstrated no indication of pain during therapy session. Education Completed: Education Topics: [x] Rationale for PT [x] PT POC [x] DC planning [] Precautions [x] Exercises [x] Bed mobility [] Transfer training with hand placement [x] Gait training [] Stair training [] Use of gait belt [] Other Completed with: [x] Patient [] Spouse [] Significant other [] Family [] C aregiver [] Other Completed by: [x] Verbal education [] Demonstration [] Handout [] Other: Response to Education: [x] Stated Understanding [] Reinforcement necessary [] Returned demonstration [] Demonstrated understanding [] No evidence of learning [] Refused PT Goals Pt Will Go Supine To Sit: With standby assistance, With modified independence Pt Will Go Sit To Supine: With standby assistance, With modified independence Pt Will Transfer Sit to Stand: With standby assist Pt Will Transfer Bed/Chair: With standby assist Pt Will Propel Wheelchair: 150-200 feet W/C Level of Assist: With minimal assist, With standby assist Reflects last filed data of patient's status; may be from multiple contributors onver miriam Transaction, Provider Unknown - 09/03/2018 12:41 PM PDT Nurse Progress Note by Rosalinda Sanz RN at 09/03/18 1241 Author: Rosalinda Sanz RN Service: (none) Author Type: Registered Nurse Filed: 09/03/18 1242 Date of Service: 09/03/18 1241 Status: Signed Recovery Unit Operator: Rosalinda Sanz RN (Registered Nurse) Pt had paracentesis with no difficulty. Tolerated procedure well. 3L removed. Rosalinda katz RN onver miriam Transaction, Provider Unknown - 09/03/2018 10:06 AM PDT Case Management by Jodie Sebastian RN at 09/03/18 1006 Author: Jodie Sebastian RN Service: (none) Author Type: Registered Nurse Filed: 09/04/18 1212 Date of Service: 09/03/18 1006 Status: Addendum Recovery Unit Operator: Jodie Sebastian RN (Registered Nurse) Related Notes: Original Note by Jodie Sebastian RN (Registered Nurse) filed a t 09/03/18 1008 CM attended morning rounds. Per MD pt may be medically ready for discharge tomorrow. PT to reassess pt today for recommendations. CM will continue to follow for discharge planning. PT is recommending Home Health for pt. CM discussed discharge planning with pt in regards t o Home Health services. Pt states that she is currently staying with Conner who also helps c are for her. Pt states she is staying with Conner in his residential facility but she is look ing for alternative housing as she is technically not supposed to be staying there. Pt state s that she has also not been in to see her PCP for a while. Due to pt's current living situa tion and PCP follow up, pt may not be able to qualify for Home Health services. blemo Ha draper MD - 09/03/2018 9:35 AM PDT Progress Notes by Ha Aguayo MD at 09/03/18 0968 Author: Ha Aguayo MD Service: Hospitalist Author Type: Physician Filed: 09/04/18 1400 Date of Service: 09/03/18 0935 Status: Signed Recovery Unit Operator: Ha Aguayo MD (Physician) [facility] Service: Hospitalist Progress Note Hospital Day: LOS: 10 days Post-Op Day: 4 Days Post-Op Procedure: Procedure(s) (LRB): ESOPHAGOGASTRODUODENOSCOPY (N/A) Briefly, 48-year-old female with extensive past medical history most significant for alcoho l abuse, decompensated alcoholic cirrhosis (ascites and esophageal varices status post sachin ng 2010), hypertension and other chronic comorbidities who presents to [facility] from [facility] ER for hematemesis admitted for upper GI bleed. The patient underwent EGD on 08/26. SUBJECTIVE No acute overnight events. The patient is awake, alert and oriented x4. Patient notes abd ominal distention intensity moderate. Patient is ambulating with physical therapy. No o ther acute complaints at this time. REVIEW OF SYSTEMS: ROS As above Patient denies nausea or vomiting. Patient denies angina, shortness of breath or palpitations OBJECTIVE Vital Signs: BP 115/77 (BP Location: Right upper arm) | Pulse 71 | Temp 98.4 F (36.9 C) (Oral) | Resp 16 | Ht 1.702 m (5' 7") | Wt 62.8 kg (138 lb 8 oz) | SpO2 97% | ? No | BMI 21.69 kg/m Physical Exam Constitutional: She is oriented to person, place, and time. No acute distress/nontoxic. S itting up in bed. No family at bedside. Cardiovascular: Regular rate and rhythm. +2 peripheral pulses at radial sites. Pulmonary/Chest: Effort normal. Good air entry bilaterally. Abdominal: Soft. Bowel sounds are normal. Mild diffuse tenderness on palpation. Distended . No rebound or guarding. Musculoskeletal: No peripheral edema. Neurological: No cranial nerve deficit. Vital signs reviewed. DATA Labs, medications, allergies and other treatment team notes reviewed. Active Problems: Thrombocytopenia, unspecified Anemia Seizure disorder, secondary Alcoholic cirrhosis of liver with ascites (HCC) Portal hypertension (HCC) Accelerated hypertension ASSESSMENT & PLAN 1. GI bleed: -Resolving. -Most likely secondary to portal hypertensive gastropathy -The patient underwent EGD on 08/26 which demonstrated normal esophagus, portal hypertensive gastropathy, nonbleeding gastric ulcer with no stigmata of bleeding, normal duodenum. -Hemodynamically stable. Orthostatics every shift. -Present hemoglobin 10.3 from 9.2. Transfuse if hemoglobin less than 7 g/dL. -If patient demonstrates positive orthostatics we will obtain stat H&H. -Continue with 2 peripheral IVs at this time -Appreciate GI input regarding further inpatient care and management presently recommends PPI x8 weeks. -Supportive care. -Last dose of Rocephin 09/01. Ascites: -Abdominal ultrasound demonstrates moderate ascites patient presently n.p.o. in anticipat ion for paracentesis. -Body fluid labs ordered. -Presently does not demonstrate any clinical signs of SBP if demonstrates decompensation or encephalopathy will consider starting Rocephin. -Monitor. Acute kidney injury: -Active. -Baseline creatinine on 08/29 0.86 with present creatinine at 1.1 -Discontinued spironolactone and Lasix we will avoid nephrotoxic agents. -Urine eosinophils negative. Urine sodium 86. -Will await for Paracentesis and evaluation of creatinine change. Pending results will con sleep medicine physician nephrology consultation. -No contrast-induced imaging identified per review of recent records. Acute alcohol withdrawal: -Resolved. -Continue with thiamine and folate replacement -Continue with multivitamin -Fall and aspiration precautions Normocytic anemia: -Ferritin 204, TIBC 146 and corrected reticulocyte index demonstrates hypo-proliferation. Likely indicating principally anemia of chronic disease with possibly superimposed iron de ficiency anemia -No indication for transfusion at this time. -Management as per point #1. Decompensated alcoholic cirrhosis: -Will hold lasix and spironolactone 100 mg daily. If improvement in creatinine is noted, p atient to be started on spironolactone 25 mg daily and uptitrated with strict diet control w ith less than 2 g sodium daily. -Continue with lactulose to titrate to 2-3 formed bowel movements daily. -Continue w nadolol 40mg qd. DVT prophylaxis mechanical Disposition: Inpatient Code Status: DNR/DNI aH Aguayo MD 09/04/2018 onversion Transact ion, Provider Unknown - 09/03/2018 6:43 AM PDTFormatting of this note might be different fr om the original. Nurse Progress Note by Ashley Esposito RN at 09/03/18642 Author: Ashley Esposito RN Service: (none) Author Type: Registered Nurse Filed: 09/03/18642 Date of Service: 09/03/18642 Status: Signed Recovery Unit Operator: Ashley Esposito RN (Registered Nurse) Patient's vitals stable, no acute changes. End of shift audit complete. onver miriam Transaction, Provider Unknown - 09/02/2018 5:17 PM PDT Nurse Progress Note by SN Odilia at 09/02/181716 Author: SN Odilia Service: (none) Author Type: Senior Financial Consultant Filed: 09/02/18 1723 Date of Service: 09/02/181716 Status: Signed Recovery Unit Operator: SN Odilia (Senior Financial Consultant) Pt has had three loose stools this shift. No blood noted in stools. Pt's gait seems to be more steady however moderate assistance is still necessary. Pt's mentation has improved and is now oriented to person, place, and situation. Pt is to be NPO at midnight for paracentesis tomorrow. SN Ortega taci Meeks Speech Pathologist - 09/02/2018 12:15 PM PDTFormatting of this note might be diff erent from the original. Therapy Progress Note by Staci Meeks MS CCC-DEVELOPMENTAL SERVICES WORKER at 09/02/185 Author: Staci Meeks MS CCC-DEVELOPMENTAL SERVICES WORKER Service: (none) Author Type: Speech and Language Pat hologist Filed: 09/02/18 1215 Date of Service: 09/02/18 121 Status: Signed Recovery Unit Operator: Staci Meeks MS CCC-DEVELOPMENTAL SERVICES WORKER (Speech and Language Pathologist) BEDSIDE SWALLOW DEVELOPMENTAL SERVICES WORKER Last Visit DEVELOPMENTAL SERVICES WORKER Received On: 09/02/18 Requires DEVELOPMENTAL SERVICES WORKER Follow Up: No Recommendations Liquids Consistency Recommendations: Thin Diet Consistency Recommendation: Regular Recommendations: Check on patients frequently throught out meals Risk for Aspiration: Mild Compensatory Swallowing Strategies: Upright as possible for all oral intake, Slow rate pres entation, Small bites/sips Recommended Form of Meds: Meds with recommended liquid Summary: Pt seen today for dysphagia therapy to assess tolerance of advanced textures given improvement in cognitive status. Pt was upright in the chair eating lunch from tray upon ar rival. She was able to self feed and answer DEVELOPMENTAL SERVICES WORKER's questions, though she did have minimal juice bal output (appeared to be behavioral rather than related to language function). Pt was able to self feed all consistencies fo PO trials with no s/sx aspiration. Recommend advancement to thin liquids and regular textures with no recommended follow up from at this time. Staff Notified: RNMD Plan of Care Treatment Plan: Discharge from at this time, No futher therapy recommended Care Duration (Days): 2 Days AVS Documentation: Yes Diet: Regular: no restrictions Liquids: Thin liquids: regular consistency DEVELOPMENTAL SERVICES WORKER Ready for Discharge: Yes Swallowing Treatment: Yes Patient Assessment Temperature Spikes Noted: No Respiratory Status: Room air Behavior/Cognition: Cooperative, Alert Dentition: Poor dental/oral hygiene Vision: Functional for self-feeding Patient Positioning: Upright in chair Consistencies Consistencies Assessed: Yes Thin Presentation: Cup, Self Fed Oral Phase Thin: Within functional limits Pharyngeal Phase: No overt signs or symptoms of aspiration Puree Presentation: Self Fed Oral Phase: Within functional limits Pharyngeal: No overt signs or symptoms of aspiration Mechanical Soft Mechanical Soft - Presentation: Self fed Mechanical Soft - Oral: Within Functional Limits Mechanical Soft - Pharyngeal: No overt signs or symptoms of aspiration Regular Presentation: Self Fed Oral Phase: Within functional limits Pharyngeal Phase: No overt signs or symptoms of aspiration Goals are progressing unless otherwise indicated. Dysphagia Goals Residential Goals: Safe/efficient oral intake Pt will have safe/efficient oral intake : Goal met Short Term Goals: Tolerate diet upgrade trials Pt will tolerate diet upgrade trials : Goal met Education Completed Education Topics: Dysphagia: Explain results of session, speech-language pathology role, plan of care, most s afe diet and swallow precautions Completed with: [x] Patient [] Spouse [] Significant other [] Family [] Caregiver [] Other Completed by: [x] Verbal education [] Demonstration [] Handout [] Other: Response to Education: [x] Stated Understanding [] Reinforcement necessary [] Return ed demonstration [] Demonstrated understanding [] No evidence of learning [] Refused Staci Meeks MS [facility]-DEVELOPMENTAL SERVICES WORKER 09/02/18 12:15 PM ble Ha may MD - 09/02/2018 8:45 AM PDTFormatting of this note might be different from th e original. Progress Notes by Ha Aguayo MD at 09/02/18 0872 Author: Ha Aguayo MD Service: Hospitalist Author Type: Physician Filed: 09/04/18 1402 Date of Service: 09/02/18 9707 Status: Addendum Recovery Unit Operator: Ha Aguayo MD (Physician) Related Notes: Original Note by Ha Aguayo MD (Physician) filed at 09/02/18 2024 [facility] Service: Hospitalist Progress Note Hospital Day: LOS: 8 days Post-Op Day: 4 Days Post-Op Procedure: Procedure(s) (LRB): ESOPHAGOGASTRODUODENOSCOPY (N/A) Briefly, 48-year-old female with extensive past medical history most significant for alcoho l abuse, decompensated alcoholic cirrhosis (ascites and esophageal varices status post sachin ng 2010), hypertension and other chronic comorbidities who presents to [facility] from [facility] ER for hematemesis admitted for upper GI bleed. The patient underwent EGD on 08/26. SUBJECTIVE No acute overnight events. The patient is awake, alert and oriented x4. Patient notes imp rovement overall medical condition as compared to admission; however, does not note abdomina l distention. Intensity moderate. Associated with fatigue, malaise and transient nausea. No vomiting. Tolerating p.o. diet yesterday, presently n.p.o. in anticipation for paracen tesis. Progression stable. REVIEW OF SYSTEMS: ROS As above Patient denies fever or chills Patient denies abdominal pain, nausea or vomiting Patient denies angina, shortness of breath or palpitations OBJECTIVE Vital Signs: BP 127/62 (BP Location: Right upper arm) | Pulse 66 | Temp 98.1 F (36.7 C) (Oral) | Resp 16 | Ht 1.702 m (5' 7") | Wt 63.7 kg (140 lb 6.4 oz) | SpO2 100% | BMI 21.99 kg/m Physical Exam Constitutional: She is oriented to person, place, and time. No acute distress/nontoxic. S itting up in chair. No family at bedside. Neck: supple. Trachea midline. Cardiovascular: Regular rate and rhythm. +2 peripheral pulses at radial sites. Pulmonary/Chest: Effort normal. Good air entry bilaterally. Abdominal: Soft. Bowel sounds are normal. Mild tenderness on palpation. Distended. No re bound or guarding. Musculoskeletal: No peripheral edema. Neurological: No cranial nerve deficit. Psychiatric: Anxious. Skin: Warm Vital signs reviewed. DATA Labs, medications, allergies and other treatment team notes reviewed. Principal Problem: Hemorrhage of gastrointestinal tract, unspecified Active Problems: Alcohol withdrawal Thrombocytopenia, unspecified Anemia Seizure disorder, secondary Hypomagnesemia Acute hepatic encephalopathy Alcohol abuse, continuous Electrolyte and fluid disorders not elsewhere classified Alcoholic cirrhosis of liver with ascites (HCC) Portal hypertension (HCC) Accelerated hypertension ASSESSMENT & PLAN 1. GI bleed: -Resolving. -Most likely secondary to portal hypertensive gastropathy -The patient underwent EGD on 08/26 which demonstrated normal esophagus, portal hypertensive gastropathy, nonbleeding gastric ulcer with no stigmata of bleeding, normal duodenum. -Hemodynamically stable. Orthostatics every shift. -Present hemoglobin 10.3 from 9.2. Transfuse if hemoglobin less than 7 g/dL. -If patient demonstrates positive orthostatics we will obtain stat H&H. -Continue with 2 peripheral IVs at this time -Appreciate GI input regarding further inpatient care and management presently recommends PPI x8 weeks. -Supportive care. -Last dose of Rocephin 09/01. -Disposition: After resolution of acute kidney injury. Ascites: -Abdominal ultrasound demonstrates moderate ascites patient presently n.p.o. in anticipat ion for paracentesis. -Body fluid labs ordered. -Presently does not demonstrate any clinical signs of SBP if demonstrates decompensation or encephalopathy will consider starting Rocephin. -Monitor. Acute kidney injury: -Active. -Baseline creatinine on 08/29 0.86 with present creatinine at 1.2 -Discontinued spironolactone and Lasix we will avoid nephrotoxic agents. Caution with ri faximin and lactulose regarding bowel movements and possible source of dehydration. -Urine eosinophils negative. Urine sodium 86. -The patient has received sufficient IV fluids with good p.o. intake will hold on any fur ther IV fluids at this time. -Will await for Paracentesis and evaluation of creatinine change. Pending results will con sleep medicine physician nephrology consultation. -No contrast-induced imaging identified per review of recent records. Acute alcohol withdrawal: -Patient has been discontinued off of CIWA protocol. -Continue with thiamine and folate replacement -Continue with multivitamin -Fall and aspiration precautions Normocytic anemia: -Ferritin 204, TIBC 146 and corrected reticulocyte index demonstrates hypo-proliferation. Likely indicating principally anemia of chronic disease with possibly superimposed iron de ficiency anemia -No indication for transfusion at this time. -Management as per point #1. Decompensated alcoholic cirrhosis: -Will hold lasix and spironolactone 100 mg daily. -Continue with 2 g low-sodium diet. -Continue with lactulose to titrate to 2-3 formed bowel movements daily. As the patient wa s noted not to be compliant with lactulose, will discontinue rifaximin as patient has been having diarrhea, exceeding target bowel movements. -Continue w nadolol 40mg qd. DVT prophylaxis mechanical Disposition: Inpatient Code Status: DNR/DNI Ha Aguayo MD 09/02/2018 onversion Transact ion, Provider Unknown - 09/02/2018 5:26 AM PDTFormatting of this note might be different fr om the original. Nurse Progress Note by Ashley Esposito RN at 09/02/18525 Author: Ashley Esposito RN Service: (none) Author Type: Registered Nurse Filed: 09/02/18525 Date of Service: 09/02/18525 Status: Signed Recovery Unit Operator: Ashley Esposito RN (Registered Nurse) Patient's vitals stable, no acute changes. End of shift audit complete. onver miriam Transaction, Provider Unknown - 09/01/2018 5:09 PM PDT Nurse Progress Note by Steve Mancuso RN at 09/01/181708 Author: Steve Mancuso RN Service: (none) Author Type: Registered Nurse Filed: 09/01/18 180 Date of Service: 09/01/181708 Status: Signed Recovery Unit Operator: Jehovah'S Witness J Mancuso, RN (Registered Nurse) Pt A&O X3, more alert and active than previous day. Pt up to chair for the majority of shif t. Ambulating to bedside commode and to bathroom with two person assist tolerating well. Mul tiple loose BMs. Good appetite. BP elevated Hydralazine X1. Will continue to monitor. Grant Mancuso RN blemo Ha draper MD - 09/01/2018 2:10 PM PDT Progress Notes by Ha Aguayo MD at 09/01/18 1410 Author: Ha Aguayo MD Service: Hospitalist Author Type: Physician Filed: 09/04/18 1401 Date of Service: 09/01/18 1410 Status: Addendum Recovery Unit Operator: Ha Aguayo MD (Physician) Related Notes: Original Note by Ha Aguayo MD (Physician) filed at 09/01/18 1420 [facility] Service: Hospitalist Progress Note Hospital Day: LOS: 7 days Post-Op Day: 4 Days Post-Op Procedure: Procedure(s) (LRB): ESOPHAGOGASTRODUODENOSCOPY (N/A) Briefly, 48-year-old female with extensive past medical history most significant for alcoho l abuse, decompensated alcoholic cirrhosis (ascites and esophageal varices status post sachin ng 2010), hypertension and other chronic comorbidities who presents to [facility] from [facility] ER for hematemesis admitted for upper GI bleed. The patient underwent EGD on 08/26. SUBJECTIVE Yesterday patient experienced numerous bowel movements greater than 3, could not quantif y further. No acute overnight events. Patient is alert and oriented. No family at bedside . Anxious patient minimally responsive and answers questions when she desires. Tolerati ng p.o. diet. Progression stable. Per my discussion with the RN (Jehovah'S Witness) the patient is more awake alert and oriented as compared to previous days. REVIEW OF SYSTEMS: ROS As above Patient denies fever or chills Patient denies abdominal pain, nausea or vomiting Patient denies angina, shortness of breath or palpitations Patient denies dysuria OBJECTIVE Vital Signs: BP 134/73 (BP Location: Right upper arm) | Pulse 82 | Temp 98.1 F (36.7 C) (Oral) | Resp 18 | Ht 1.702 m (5' 7") | Wt 66.4 kg (146 lb 6.2 oz) | SpO2 99% | BMI 22.93 kg/m Physical Exam Constitutional: She is oriented to person, place, and time. No acute distress/nontoxic. S itting up in bed. No family at bedside. Neck: supple. Cardiovascular: Regular rate and rhythm. Pulmonary/Chest: Effort normal. Minimally decreased breath sounds at bases. Abdominal: Soft. Bowel sounds are normal. Nontender. Mild distention. No rebound or guar ding. Musculoskeletal: No peripheral edema. Neurological: She is alert and oriented to person, place, and time. No cranial nerve defici t. Psychiatric: Anxious. Skin: Warm DATA Labs, medications, allergies and other treatment team notes reviewed. Principal Problem: Hemorrhage of gastrointestinal tract, unspecified Active Problems: Alcohol withdrawal Thrombocytopenia, unspecified Anemia Seizure disorder, secondary Hypomagnesemia Acute hepatic encephalopathy Alcohol abuse, continuous Electrolyte and fluid disorders not elsewhere classified Alcoholic cirrhosis of liver with ascites (HCC) Portal hypertension (HCC) Accelerated hypertension ASSESSMENT & PLAN 1. GI bleed: -Most likely secondary to portal hypertensive gastropathy -The patient underwent EGD on 08/26 which demonstrated normal esophagus, portal hypertensive gastropathy, nonbleeding gastric ulcer with no stigmata of bleeding, normal duodenum. -Hemodynamically stable. Orthostatics every shift. -Present hemoglobin 10.3 from 9.2. Transfuse if hemoglobin less than 7 g/dL. -If patient demonstrates positive orthostatics we will obtain stat H&H. -Continue with 2 peripheral IVs at this time -Appreciate GI input regarding further inpatient care and management presently recommends PPI x8 weeks. -Supportive care. -Last dose of Rocephin 09/01. -Disposition: After resolution of acute kidney injury. Acute kidney injury: -Baseline creatinine on 08/29 0.86 with present creatinine at 1.3 -Discontinued spironolactone and Lasix we will avoid nephrotoxic agents. Caution with ri faximin and lactulose regarding bowel movements and possible source of dehydration. -Will obtain urine sodium, urine eosinophils, and US abd to assess for ascites. -Bladder scan x 1. -The patient has received sufficient IV fluids with good p.o. intake will need to be caut ious secondary to history of decompensated alcoholic cirrhosis and high propensity for invol vement of ascites. -If no improvement in patient's creatinine in the next 24 hours, will obtain nephrology con sultation for further assistance in the patient care and management. -No contrast-induced imaging identified per review of recent records. Acute alcohol withdrawal: -Continue with CIWA protocol minimal requirements. Caution to be used unlikely to be administered for signs of alcohol withdrawal. -Continue with thiamine and folate replacement -Continue with multivitamin -Fall and aspiration precautions Normocytic anemia: -Ferritin 204, TIBC 146 and corrected reticulocyte index demonstrates hypo-proliferation. Likely indicating principally anemia of chronic disease with possibly superimposed iron de ficiency anemia -No indication for transfusion at this time. -Management as per point #1. Decompensated alcoholic cirrhosis: -Will hold lasix and spironolactone 100 mg daily. -Continue with 2 g low-sodium diet. -Continue with lactulose to titrate to 2-3 formed bowel movements daily. As the patient wa s noted not to be compliant with lactulose, will discontinue rifaximin as patient has been having diarrhea, exceeding target bowel movements. -Continue as needed nadolol 40mg qd. DVT prophylaxis mechanical Disposition: Inpatient Code Status: DNR/DNI Ha Aguayo MD 09/01/2018 onversion Transact ion, Provider Unknown - 09/01/2018 11:14 AM PDTFormatting of this note might be different fr om the original. Progress Notes by Princess Rodrigues RD at 09/01/18 111 Author: Princess Rodrigues RD Service: (none) Author Type: Registered Dietitian Filed: 09/01/181113 Date of Service: 09/01/181113 Status: Signed Recovery Unit Operator: Princess Rodrigues RD (Registered Dietitian) 09/01/18 1006 Subjective Timepoint Follow up (High risk) Fluid / Beverage Intake Oral Fluids Amount Pt tolerating sips of thin water ok between meals. Pt asking if she can have juice. Liquid Meal Replacement or Supplement Pt receiving Boost Pudding TID at snack times. Pt is eating most of these. Food Intake Amount of Food Pt states she ate a pancake for breakfast. Average recorded intake: 75% x 9 meals/snacks, however, pt only receiving 1 item per tray. Type of Food / Meals Dysphagia pureed, 1 snack per tray Meal / Snack Pattern House diet Nutrition-Focused Physical Findings Extremities, Muscles and Bones Pt noted to have dependent edema to LUE and to BLE. Digestive System (Mouth to Rectum) Pt with dysphagia; DEVELOPMENTAL SERVICES WORKER is following. Anthropometrics Weight change Current wt: 66.4 kg, up 1.4 kg from admit. Per I/O's, pt is fluid +5.7 L; wi ll monitor. Biochemical data, medical tests, and procedures reviewed Biochemical data, medical tests, and procedures reviewed Na 147 (H), Cr 1.3 (H) - pt with A KI; Ammonia 94 (H) - receiving lactulose; will monitor. Recommendations Recommended energy needs DEVELOPMENTAL SERVICES WORKER continue to follow and advance diet as able. Continue house d iet. RD concerned that pt is not able to meet her nutritional needs on current diet order. If unable to advance diet, consider nutrition support, if consistent with pt's plan of care . Continue Boost Pudding TID at snack times (690 kcal/d, 21 g pro/d). Nutritional Risk Nutritional risk Moderate / high Follow up date 09/05/18 onver miriam Transaction, Provider Unknown - 09/01/2018 5:45 AM PDT Nurse Progress Note by Ashley Esposito RN at 09/01/18 0511 Author: Ashley Esposito RN Service: (none) Author Type: Registered Nurse Filed: 09/01/1846 Date of Service: 09/01/1845 Status: Signed Recovery Unit Operator: Ashley Esposito RN (Registered Nurse) Patient's vitals stable, no acute changes. End of shift audit complete. onver miriam Transaction, Provider Unknown - 08/31/2018 5:43 PM PDT Nurse Progress Note by Steve Mancuso RN at 08/31/18 5863 Author: Steve Mancuso RN Service: (none) Author Type: Registered Nurse Filed: 08/31/181801 Date of Service: 08/31/181742 Status: Signed Recovery Unit Operator: Steve Mancuso RN (Registered Nurse) Pt A&O to person, BPs 170's, pt fatigue, up to bedside commode, up to chair for a fews hrs, appetite improving pt had good breakfast and lunch. IVF infusing, IV abx infused. Mag repla erica X1. Will continue to monitor. Steve Mancuso RN blemo Ha draper MD - 08/31/2018 7:32 AM PDT Progress Notes by Ha Aguayo MD at 08/31/18731 Author: Ha Aguayo MD Service: Hospitalist Author Type: Physician Filed: 08/31/181758 Date of Service: 08/31/18731 Status: Signed Recovery Unit Operator: Ha Aguayo MD (Physician) [facility] Service: Hospitalist Progress Note Hospital Day: LOS: 6 days Post-Op Day: 4 Days Post-Op Procedure: Procedure(s) (LRB): ESOPHAGOGASTRODUODENOSCOPY (N/A) Briefly, 48-year-old female with extensive past medical history most significant for alcoho l abuse, decompensated alcoholic cirrhosis (ascites and esophageal varices status post sachin ng 2010), hypertension and other chronic comorbidities who presents to [facility] from [facility] ER for hematemesis admitted for upper GI bleed. The patient underwent EGD on 08/26. SUBJECTIVE Yesterday patient experienced numerous bowel movements greater than 3, could not quantif y further. No acute overnight events. Patient is alert and oriented. No family at bedside . Anxious patient minimally responsive and answers questions when she desires. Tolerati ng p.o. diet. Progression stable. Per my discussion with the RN (Jehovah'S Witness) the patient is more awake alert and oriented as compared to previous days. REVIEW OF SYSTEMS: ROS As above Patient denies fever or chills Patient denies abdominal pain, nausea or vomiting Patient denies angina, shortness of breath or palpitations Patient denies dysuria OBJECTIVE Vital Signs: BP 167/86 | Pulse 89 | Temp 97.5 F (36.4 C) (Oral) | Resp 18 | Ht 1.702 m (5' 7") | Wt 66.4 kg (146 lb 6.2 oz) | SpO2 100% | BMI 22.93 kg/m Physical Exam Constitutional: She is oriented to person, place, and time. No acute distress/nontoxic. L aying in bed. No family at bedside. Neck: supple. Cardiovascular: Regular rate and rhythm. Pulmonary/Chest: Effort normal. Minimally decreased breath sounds at bases. Abdominal: Soft. Bowel sounds are normal. Nontender. Nondistended. No rebound or guardin g. Musculoskeletal: No peripheral edema. Neurological: She is alert and oriented to person, place, and time. No cranial nerve defici t. Psychiatric: Anxious. Skin: Warm DATA Labs, medications, allergies and other treatment team notes reviewed. Principal Problem: Hemorrhage of gastrointestinal tract, unspecified Active Problems: Alcohol withdrawal Thrombocytopenia, unspecified Anemia Seizure disorder, secondary Hypomagnesemia Acute hepatic encephalopathy Alcohol abuse, continuous Electrolyte and fluid disorders not elsewhere classified Alcoholic cirrhosis of liver with ascites (HCC) Portal hypertension (HCC) Accelerated hypertension ASSESSMENT & PLAN 1. GI bleed: -Most likely secondary to portal hypertensive gastropathy -The patient underwent EGD on 08/26 which demonstrated normal esophagus, portal hypertensive gastropathy, nonbleeding gastric ulcer with no stigmata of bleeding, normal duodenum. -Hemodynamically stable. Orthostatics every shift. -Present hemoglobin 10.3 from 9.2. Transfuse if hemoglobin less than 7 g/dL. -If patient demonstrates positive orthostatics we will obtain stat H&H. -Continue with 2 peripheral IVs at this time -Appreciate GI input regarding further inpatient care and management presently recommends PPI x8 weeks. -Supportive care. -Last dose of Rocephin 09/01. -Disposition: The patient is to be discharged to group home facility likely to occur on Saturday 09/02 and after resolution of acute kidney injury. Acute kidney injury: -Baseline creatinine on 08/29 0.86 with present creatinine at 1.2 -Discontinued spironolactone and Lasix we will avoid nephrotoxic agents. Caution with ri faximin and lactulose regarding bowel movements and possible source of dehydration. -Likely secondary to poor p.o. intake in the setting of diuretics likely prerenal -We will start D5 half NS at 110 cc/h x 1 L after completion to obtain repeat BMP and fur ther therapy based on results. Acute alcohol withdrawal: -Continue with CIWA protocol minimal requirements. Caution to be used unlikely to be administered for signs of alcohol withdrawal. -Continue with thiamine and folate replacement -Continue with multivitamin -Fall and aspiration precautions Normocytic anemia: -Ferritin 204, TIBC 146 and corrected reticulocyte index demonstrates hypo-proliferation. Likely indicating principally anemia of chronic disease with possibly superimposed iron de ficiency anemia -No indication for transfusion at this time. -Management as per point #1. Decompensated alcoholic cirrhosis: -Will hold Lasix 40 mg daily and spironolactone 100 mg daily. -Continue with 2 g low-sodium diet. -Continue with lactulose to titrate to 2-3 formed bowel movements daily. As the patient wa s noted not to be compliant with lactulose, will discontinue rifaximin as patient has been having diarrhea, exceeding target bowel movements. -Continue as needed nadolol 40mg qd. DVT prophylaxis mechanical Disposition: Inpatient Code Status: DNR/DNI Ha Aguayo MD 08/31/2018 onversion Transact ion, Provider Unknown - 08/31/2018 4:46 AM PDTFormatting of this note might be different fr om the original. Progress Notes by Ahsan Solis RN at 08/31/18445 Author: Ahsan Solis RN Service: (none) Author Type: Registered Nurse Filed: 08/31/18445 Date of Service: 08/31/18445 Status: Signed Recovery Unit Operator: Ahsan Solis RN (Registered Nurse) No acute changes this shift. End of shift audits complete. Ahsan Solis RN onver miriam Transaction, Provider Unknown - 08/30/2018 5:20 PM PDT Nurse Progress Note by Steve Mancuso RN at 08/30/181719 Author: Steve Mancuso RN Service: (none) Author Type: Registered Nurse Filed: 08/30/18 1804 Date of Service: 08/30/181719 Status: Addendum Recovery Unit Operator: Jehovah'S Witness J Mancuso, RN (Registered Nurse) Related Notes: Original Note by Steve Mancuso, RN (Registered Nurse) filed at 08/30 1724 Pt A&O to self, VSS, CIWA 2-4, BMx2, pt resting in bed. Will continue to monitor. Steve Mancuso RN taci Meeks Speech Pathologist - 08/30/2018 3:37 PM PDTFormatting of this note might be diff erent from the original. Therapy Progress Note by Staci Meeks MS CCC-DEVELOPMENTAL SERVICES WORKER at 08/30/18 1537 Author: Staci Meeks MS CCC-DEVELOPMENTAL SERVICES WORKER Service: (none) Author Type: Speech and Language Pat hologist Filed: 08/30/18 1537 Date of Service: 08/30/187 Status: Signed Recovery Unit Operator: Staci Meeks MS CCC-DEVELOPMENTAL SERVICES WORKER (Speech and Language Pathologist) 08/30/18 1500 DEVELOPMENTAL SERVICES WORKER Last Visit DEVELOPMENTAL SERVICES WORKER Received On 08/30/18 Requires DEVELOPMENTAL SERVICES WORKER Follow Up Unavailable Attempted, pt receiving care from RN. Will re-attempt as census permits. Staci Meeks MS CCC-DEVELOPMENTAL SERVICES WORKER 08/30/18 3:37 PM a Moy MD - 08/30/2018 2:20 PM PDTFormatting of this note might be different from th e original. Progress Notes by Ha Aguayo MD at 08/30/18 1420 Author: Ha Aguayo MD Service: Hospitalist Author Type: Physician Filed: 08/30/181923 Date of Service: 08/30/18 1420 Status: Signed Recovery Unit Operator: Ha Aguayo MD (Physician) [facility] Service: Hospitalist Progress Note Hospital Day: LOS: 5 days Post-Op Day: 4 Days Post-Op Procedure: Procedure(s) (LRB): ESOPHAGOGASTRODUODENOSCOPY (N/A) Briefly, 48-year-old female with extensive past medical history most significant for alcoho l abuse, decompensated alcoholic cirrhosis (ascites and esophageal varices status post sachin ng 2010), hypertension and other chronic comorbidities who presents to [facility] from [facility] ER for hematemesis admitted for upper GI bleed. The patient underwent EGD on 08/26. SUBJECTIVE No acute overnight events. Patient is alert and oriented. No family at bedside. Anxious. Presently notes no acute medical complaint. Progression stable. REVIEW OF SYSTEMS: ROS As above Patient denies fever chills Patient denies angina, shortness of breath or palpitations OBJECTIVE Vital Signs: BP 131/79 (BP Location: Right upper arm) | Pulse 78 | Temp 97.7 F (36.5 C) (Axillary) | Resp 18 | Ht 1.702 m (5' 7") | Wt 68.3 kg (150 lb 9.2 oz) | SpO2 97% | BMI 23.58 kg/ m Physical Exam Constitutional: She is oriented to person, place, and time. No acute distress. Laying in bed. No family at bedside. Neck: supple. Trachea midline. Cardiovascular: Regular rate and rhythm. No murmur appreciated. Pulmonary/Chest: Effort normal. No acute respiratory distress. Abdominal: Soft. Bowel sounds are normal. Nontender. Nondistended. No rebound or guardin g. Musculoskeletal: No peripheral edema. Neurological: She is alert and oriented to person, place, and time. No cranial nerve defici t. Skin: Skin is warm. Psychiatric: Anxious. DATA Labs, medications, allergies and other treatment team notes reviewed. Imaging reviewed. Principal Problem: Hemorrhage of gastrointestinal tract, unspecified Active Problems: Alcohol withdrawal Thrombocytopenia, unspecified Anemia Seizure disorder, secondary Hypomagnesemia Acute hepatic encephalopathy Alcohol abuse, continuous Electrolyte and fluid disorders not elsewhere classified Alcoholic cirrhosis of liver with ascites (HCC) Portal hypertension (HCC) Accelerated hypertension ASSESSMENT & PLAN 1. GI bleed: -Most likely secondary to portal hypertensive gastropathy -The patient underwent EGD on 08/26 which demonstrated normal esophagus, portal hypertensive gastropathy, nonbleeding gastric ulcer with no stigmata of bleeding, normal duodenum. -Hemodynamically stable. Orthostatics every shift. -Present hemoglobin 9.2. Transfuse if hemoglobin less than 7 g/dL. -We will hold on H&H at this time. If patient demonstrates positive orthostatics we will obtain stat H&H. -Continue with 2 peripheral IVs at this time -Appreciate GI input regarding further inpatient care and management presently recommends PPI x8 weeks. -Supportive care. -Disposition: Likely discharge within the next 24 to 48 hours. 2. Acute alcohol withdrawal: -Continue with CIWA protocol minimal requirements, as per my discussion with the patient 's RN at bedside. -Continue with thiamine and folate replacement -Continue with multivitamin -Fall and aspiration precautions 3. Normocytic anemia: -We will order ferritin, iron panel reticulocyte count. -No indication for transfusion at this time. -Management as per point #1. 4. Decompensated alcoholic cirrhosis: -Continue with Lasix 40 mg daily and spironolactone 100 mg daily. -Continue with 2 g low-sodium diet. -Continue with rifaximin and lactulose to titrate to 2-3 formed bowel movements daily. -Continue as needed nadolol 40mg qd. DVT prophylaxis mechanical Disposition: Inpatient Code Status: DNR/DNI Ha Aguayo MD 08/30/2018 onversion Transact ion, Provider Unknown - 08/30/2018 8:10 AM PDTFormatting of this note might be different fr om the original. Case Management by HANNAH Robertson at 08/30/18 0810 Author: HANNAH Robertson Service: (none) Author Type: Api Architect Filed: 08/30/18 6300 Date of Service: 08/30/18809 Status: Addendum Recovery Unit Operator: HANNAH Robertson (Api Architect) Related Notes: Original Note by HANNAH Robertson (Api Architect) filed at 08/30/18 7873 Referral sent to [facility] for SNF placement. [facility] [address] [place] [address] Ralph- Admissions CM attempted to reach [facility] at [facility]. A voicemail was left. Per [facility], pt has an insurance that will need authorization. Pt will not be able to discharg e over the weekend. CM on Sunday to follow up with [facility]. [facility] would also like to see how pt is doing on Sunday before accepting or declining pt. HANNAH Robertson erclSaritha DO - 08/29/2018 10:23 PM PDTFormatting of this note might be different from the orig inal. Progress Notes by Saritha Prado DO at 08/29/182222 Author: Saritha Prado DO Service: Hospitalist Author Type: Physician Filed: 08/29/182231 Date of Service: 08/29/182222 Status: Signed Recovery Unit Operator: Saritha Prado DO (Physician) Called by the nurse regarding: hypotension 87/54 Patient started nicardipine this AM for hypertension. Nicardipine discontinued tonight as B P soft and Albumin administered. BP medications to be re-evaluate in AM by attending. onversion Transaction, Provider Unknown - 08/29/2018 9:59 PM PDTFormatting of this note might be different from t he original. Progress Notes by Ahsan Solis RN at 08/29/182158 Author: Ahsan Solis RN Service: (none) Author Type: Registered Nurse Filed: 08/30/18 0635 Date of Service: 08/29/182158 Status: Signed Recovery Unit Operator: Ahsan Solis RN (Registered Nurse) 2032- pt Midline no longer has blood return. turnicut applied, arm mobilized, flushed numer ous times, no blood return noted. Pt changed to Lab collect. 2158- paged for pt hypotension. 2214- Eve MADERA ordered albumin 12.5 and discontinued nifedipine. 300- Sylvia MADERA contacted. Pt only voided 150 ml this noc. Had bladder scan greater than 80 0 ml. Unsure if ascites or urine. Straight cath revealed no new urine. MD notified. 305- straight cath witnessed by Bridget ESPINO, Hemanth Elkins, , and Ahsan Solis RN 310- MD states no new orders at this time. Continue to monitor UO. No other acute changes this shift. End of shift audits complete. Ahsan Solis RN onver miriam Transaction, Provider Unknown - 08/29/2018 6:40 PM PDT Nurse Progress Note by Concetta Alvarez RN at 08/29/181839 Author: Concetta Alvarez RN Service: (none) Author Type: Registered Nurse Filed: 08/29/181844 Date of Service: 08/29/181839 Status: Signed Recovery Unit Operator: Concetta Alvarez RN (Registered Nurse) Pt oriented to person, sometimes place and date. CIWA scores 5-16. Ativan given x3. BP elevated throughout shift. PRN labetalol given x1. Current BP is 138/90. Lactulose held d/t diarrhea x3. Currently replacing potassium for level of 3.7. End of shift review complete. CONCETTA ALVAREZ RN onver miriam Transaction, Provider Unknown - 08/29/2018 4:31 PM PDT Case Management by HANNAH Denis at 08/29/18 163 Author: HANNAH Denis Service: (none) Author Type: Api Architect Filed: 08/29/18 1631 Date of Service: 08/29/18 163 Status: Signed Recovery Unit Operator: HANNAH Denis (Api Architect) Discharge planning: Pending clinical course. Family is requesting [facility] if pt is needing a SNF. ana Ott i, MD - 08/29/2018 1:32 PM PDTFormatting of this note might be different fro m the original. Progress Notes by Zana Cho MD at 08/29/18 1332 Author: Zana Cho MD Service: Hospitalist Author Type: Physician Filed: 09/03/18 1520 Date of Service: 08/29/18 1332 Status: Addendum Recovery Unit Operator: Zana Cho MD (Physician) Related Notes: Original Note by Zana Cho MD (Physician) filed at 08/29/18 1441 [facility] Service: Hospitalist Progress Note Hospital Day: LOS: 4 days SUBJECTIVE Patient Summary: Ms. Son is a 48-year-old female with severe alcohol induced cir rhosis, presented to ED with coffee ground emesis. She underwent EGD that showed a small ga stric ulcer and hypertensive gastropathy. No varices. She is still having active withdrawa l symptoms from alcohol, so she is requiring about 10-15 mg of Ativan daily. Her mentation is waxing and waning. She has also poorly controlled hypertension. I have adjusted her ant ihypertensives. She has a distal chronic tibia fibula fracture. She is in a boot and is do ing well. She had paracentesis done at an outside facility, 6 L of fluid were taken out. H er abdomen is moderately distended. No need for any other additional paracentesis right now . Events Overnight: Mentation waxing and waning. No new complaints Still requiring iv lorazepam Scheduled Medications cefTRIAXone 1 g Intravenous Q24H lactulose 30 g Oral 4x Daily magnesium oxide 400 mg Oral BID nadolol 40 mg Oral Daily NIFEdipine 60 mg Oral Daily pantoprazole 40 mg Oral BID AC rifaximin 550 mg Oral BID sodium chloride 10 mL Intravenous Q8H sodium chloride 10 mL Intravenous 2 times per day Continuous Infusions OBJECTIVE Vital Signs: BP (!) 189/100 | Pulse 76 | Temp 97.5 F (36.4 C) (Axillary) | Resp 16 | Ht 1.702 m (5' 7") | Wt 65.9 kg (145 lb 4.5 oz) | SpO2 97% | BMI 22.75 kg/m Physical Exam General Appearance: awake, alert, Eyes: No gross abnormalities. Neck: neck- supple, no mass, non-tender Lungs: Normal expansion. Clear to auscultation. No rales, rhonchi, or wheezing. Abdomen: Distended with dullness to percursion Extremities: Extremities warm to touch, pink, with no edema. Musculoskeletal: +=edema Lips small brusie from seizure DATA Recent Labs Lab 08/29/18 0236 08/28/18 0429 08/27/18 0500 WBC 5.74 6.06 7.25 HGB 9.3* 9.7* 10.2* HCT 27.2* 28.4* 29.1* PLT 107* 94* 82* NEUTOPHILPCT 60.97 64.25 70.90 MONOPCT 18.90 19.16 15.87 Recent Labs Lab 08/29/18 1106 08/29/18 0236 08/28/18 2254 08/28/18 0429 08/27/18 0500 NA 148* -- -- 144 140 K 3.7 4.0 3.6 3.3* 3.2* CL 119* -- -- 110* 107 CO2 23 -- -- 22* 24 BUN 12 -- -- 12 11 CREATININE 0.86 -- -- 1.0 0.8 PROT 5.4* -- -- 5.9* 6.1* BILITOT 0.7 -- -- 0.6 0.8 ALT <7* -- -- 10 8* AST 24 -- -- 29 30 Phosphorus: Lab Results Component Value Date PHOS 3.0 08/29/2018 Invalid input(s): LABALBU Recent Labs Lab 08/29/18 0236 08/28/18 2254 08/28/18 1812 MG 1.8 1.8 1.6* No results for input(s): AMYLASE in the last 168 hours. No results for input(s): PHART, PO2ART, WOD2ZQE, A7HAGSPX, BEART in the last 168 hours. Recent Labs Lab 08/26/18 0231 08/25/18 1345 APTT 33* 32 INR 1.3 1.2 Recent Labs Lab 08/26/18 0231 TSH 1.120 Recent Labs Lab 08/25/18 1345 CKTOTAL 84 TROPONINI 0.069* CKMBINDEX 1.5 Radiology X-ray Ankle Right Result Date: 08/26/2018 Healing fractures involving the distal fibula and tibia. Signed by: Sukhwinder Ya Cameron Sign Date/Time: 08/26/2018 8:41 AM PROBLEM LIST Principal Problem: Hemorrhage of gastrointestinal tract, unspecified Active Problems: Alcohol withdrawal Thrombocytopenia, unspecified Anemia Seizure disorder, secondary Hypomagnesemia Acute hepatic encephalopathy Alcohol abuse, continuous Electrolyte and fluid disorders not elsewhere classified Alcoholic cirrhosis of liver with ascites (HCC) Portal hypertension (HCC) Accelerated hypertension Resolved Problems: * No resolved hospital problems. * ASSESSMENT & PLAN 1. Liver cirrhosis with GI bleed.EGD showed ulcer and portal hypertensive gastropathy. Con t PPI Cont ceftriaxone for 7 days. 2. Alcohol withdrawal symptoms with tachycardia and tremors. Continue IV Ativan as needed based on CIWA scores. 3. Liver cirrhosis, thrombocytopenia, ascites, status post tap done about 2 days ago. Six liters of fluid was removed. Continue oral diuretics. 4. Acclerated htn Uncontrolled cont nadolol lasix and aldactone. Added nifedipine Prn labe tolol .5. Acute hepatic/ metabolic encephalopathy. Continue rifaximin and lactulose. Although it is mentioned that patient has anaphylaxis to lactulose, she has been tolerating it well Prognosis is guarded. Awaiting mentation to improve to work with PT Code Status: DNR/DNI Zana Cho MD 08/29/2018 1:32 PM onversion Tr ansaction, Provider Unknown - 08/29/2018 1:11 PM PDTFormatting of this note might be differ ent from the original. Progress Notes by Mendy Escobar Yacht Builder at 08/29/18 1311 Author: Eric Gallegosetic Intern Service: (none) Author Type: Scottie livingston Filed: 08/29/18 1312 Date of Service: 08/29/18 1311 Status: Attested Recovery Unit Operator: Eric Gallegosetic Intern (Registered Dietitian) Cosigner: Jovana farrar RD at 08/29/18 1345 Attestation signed by Jovana Neal RD at 08/29/[address], CD 08/29/18 1052 Subjective Timepoint Admit Pt c/o Pt triggered for screening 2/2 dysphagia. Pt admitted for ETOH withdrawal and upper GI bleed. Pt on CIWA and GI following s/p EGD. DEVELOPMENTAL SERVICES WORKER following, moderate aspiration risk. Pt s leeping during visit, spoke to RN. Reported by RN Diet Experience Self-selected diet(s) followed Unable to assess at this time. Pt is lactose-intolerant. Fluid / Beverage Intake Oral Fluids Amount Sips of thin water ok between meals with 1:1 supervision Liquid Meal Replacement or Supplement Order Boost Pudding (alternate vanilla/chocolate) TID at am/pm/hs snack times. Food Intake Amount of Food Per RN, pt has only had a few bites of food yesterday, and no intake otherwi se this admit. Type of Food / Meals dysphagia pureed, 1 snack per tray. 1:1 supervision Micronutrient Intake Mineral / Element Intake Magnesium;Potassium Nutrition-Focused Physical Findings Extremities, Muscles and Bones +2 LUE edema Digestive System (Mouth to Rectum) dysphagia, ascites Skin Skin intact. Anthropometrics Weight change Admit wt 65kg and BMI 22.4, which is considered normal wt. Pt is 106% IBW. Biochemical data, medical tests, and procedures reviewed Biochemical data, medical tests, and procedures reviewed Labs reviewed. K 3.3, Mg 1.5 Estimated Energy Needs Total Energy Estimated Needs 1625 to 1950 kcal/day Method for Estimating Needs 25 to 30 kcal/kgBW using admit BW 65kg Estimated Protein Needs Total Protein Estimated Needs 78 to 98 g/day Method for Estimating Needs 1.2 to 1.5 g/kgBW using admit BW 65kg Recommendations Recommended energy needs Continue pureed diet per DEVELOPMENTAL SERVICES WORKER recommendations. Encourage PO intake with 1:1 feed assistance. House trays and supplement ordered, Boost Pudding (alternate ruddy late/vanilla) TID at snack times. Will continue to follow per nutrition protocol. Nutritional Risk Nutritional risk High Follow up date 09/01/18 Mendy Escobar, Yacht Builder onver miriam Transaction, Provider Unknown - 08/29/2018 4:12 AM PDT Nurse Progress Note by Rosalinda Callahan RN at 08/29/18411 Author: Rosalinda Callahan RN Service: (none) Author Type: Registered Nurse Filed: 08/29/18 0643 Date of Service: 08/29/18411 Status: Addendum Recovery Unit Operator: Rosalinda Callahan RN (Registered Nurse) Related Notes: Original Note by Rosalinda Callahan RN (Registered Nurse) filed at 08/29/18 06 14 Pt oriented to self only. CIWA scores from 8-20, ativan given x4. BP's 160-190's systolic, PRN labetalol given x2. All other VSS. Pt continues to have liquid stool, evening dose of lactulose held. Mag and potassium replaced per protocol. No other changes from shift assessment. End of shift review and 24 hour chart check complet ed. Rosalinda Callahan RN onver miriam Transaction, Provider Unknown - 08/28/2018 5:47 PM PDT Nurse Progress Note by Concetta Alvarez RN at 08/28/181746 Author: Concetta Alvarez RN Service: (none) Author Type: Registered Nurse Filed: 08/28/181807 Date of Service: 08/28/181746 Status: Signed Recovery Unit Operator: Concetta Alvarez RN (Registered Nurse) Pt oriented to person and sometimes date. Afebrile. BP elevated throughout shift. PRN labetalol given x1. PIV infiltrated. Midline placed. Per telemarketer, pt had 11 beats of PAT. MD notified. Strip in chart. Magnesium replaced for level of 1.5. Currently replacing potassium for level of 3.3. Max CIWA score was 8. Ativan not given. End of shift review complete. CONCETTA ALVAREZ RN eghan Tate MS CCC-DEVELOPMENTAL SERVICES WORKER - 08/28/2018 4:05 PM PDTFormatting of this note might be different f rom the original. Therapy Progress Note by Meghan Rodriguez MS CCC-DEVELOPMENTAL SERVICES WORKER at 08/28/18 1605 Author: Meghan Rodriguez MS CCC-DEVELOPMENTAL SERVICES WORKER Service: (none) Author Type: Speech and Language Pa thologist Filed: 08/28/18 1606 Date of Service: 08/28/18 1605 Status: Signed Recovery Unit Operator: Meghan Rodriguez MS CCC-DEVELOPMENTAL SERVICES WORKER (Speech and Language Pathologist) 08/28/18 1605 DEVELOPMENTAL SERVICES WORKER Last Visit DEVELOPMENTAL SERVICES WORKER Received On 08/28/18 Requires DEVELOPMENTAL SERVICES WORKER Follow Up On hold (not appropriate d/t mentation) Per MD, pt not appropriate at this time. ST to check back tomorrow. onversio n Transaction, Provider Unknown - 08/28/2018 1:35 PM PDTFormatting of this note might be di fferent from the original. Case Management by Jodie Sebastian RN at 08/28/181334 Author: Jodie Sebastian RN Service: (none) Author Type: Registered Nurse Filed: 08/28/18 2288 Date of Service: 08/28/181334 Status: Signed Recovery Unit Operator: Jodie Sebastian RN (Registered Nurse) CM attended afternoon rounds. Per MD pt will not be medically ready for discharge until nex t week. CM will continue to follow for discharge planning. Shahana mane, Zana Horn MD - 08/28/2018 1:32 PM PDTFormatting of this note might be different fro m the original. Progress Notes by Zana Cho MD at 08/28/181331 Author: Zana Cho MD Service: Hospitalist Author Type: Physician Filed: 08/28/181335 Date of Service: 08/28/181331 Status: Addendum Recovery Unit Operator: Zana Cho MD (Physician) Related Notes: Original Note by Zana Cho MD (Physician) filed at 08/28/18 890 [facility] Service: Hospitalist Progress Note Hospital Day: LOS: 3 days SUBJECTIVE Patient Summary: Events Overnight: Mentation waxing and waning. No new complaints Still requiring iv lorazepam Scheduled Medications cefTRIAXone 1 g Intravenous Q24H lactulose 30 g Oral 4x Daily magnesium oxide 400 mg Oral BID nadolol 40 mg Oral Daily pantoprazole 40 mg Oral BID AC potassium chloride 20 mEq Oral TID WC rifaximin 550 mg Oral BID sodium chloride 10 mL Intravenous Q8H sodium chloride 10 mL Intravenous 2 times per day Continuous Infusions albumin human Stopped (08/28/18 1116) OBJECTIVE Vital Signs: BP (!) 178/100 (BP Location: Left upper arm) | Pulse 79 | Temp 97.1 F (36.2 C) (Oral) | Resp 24 | Ht 1.702 m (5' 7") | Wt 67 kg (147 lb 11.3 oz) | SpO2 96% | BMI 23.13 kg/m Physical Exam General Appearance: awake, alert, Eyes: No gross abnormalities. Neck: neck- supple, no mass, non-tender Lungs: Normal expansion. Clear to auscultation. No rales, rhonchi, or wheezing. Abdomen: Distended with dullness to percursion Extremities: Extremities warm to touch, pink, with no edema. Musculoskeletal: +=edema Lips small brusie from seizure DATA Recent Labs Lab 08/28/18 04208/27/18 0500 08/26/18 0806 08/26/18 0231 WBC 6.06 7.25 -- 7.25 HGB 9.7* 10.2* 9.4* 9.9* HCT 28.4* 29.1* 27.9* 29.1* PLT 94* 82* -- 60* NEUTOPHILPCT 64.25 70.90 -- 83.70 MONOPCT 19.16 15.87 -- 11.40 Recent Labs Lab 08/28/1842808/27/18 0500 08/26/18 0701 08/26/18 0231 NA 144 140 -- -- 137 K 3.3* 3.2* 3.9 < > 3.8 CL 110* 107 -- -- 104 CO2 22* 24 -- -- 19* BUN 12 11 -- -- 7* CREATININE 1.0 0.8 -- -- 0.7 PROT 5.9* 6.1* -- -- 6.1* BILITOT 0.6 0.8 -- -- 0.8 ALT 10 8* -- -- 9* AST 29 30 -- -- 30 < > = values in this interval not displayed. Phosphorus: Lab Results Component Value Date PHOS 3.3 08/28/2018 Invalid input(s): LABALBU Recent Labs Lab 08/28/18 04208/27/18 0500 08/26/18 1137 MG 1.5* 1.6* 1.7 No results for input(s): AMYLASE in the last 168 hours. No results for input(s): PHART, PO2ART, MWI0OZF, X4DIJTVP, BEART in the last 168 hours. Recent Labs Lab 08/26/18 0231 08/25/18 1345 APTT 33* 32 INR 1.3 1.2 Recent Labs Lab 08/26/18 0231 TSH 1.120 Recent Labs Lab 08/25/18 1345 CKTOTAL 84 TROPONINI 0.069* CKMBINDEX 1.5 Radiology X-ray Ankle Right Result Date: 08/26/2018 Healing fractures involving the distal fibula and tibia. Signed by: Sukhwinder Ya Cameron Sign Date/Time: 08/26/2018 8:41 AM PROBLEM LIST Principal Problem: Hemorrhage of gastrointestinal tract, unspecified Active Problems: Alcohol withdrawal Thrombocytopenia, unspecified Anemia Seizure disorder, secondary Hypomagnesemia Acute hepatic encephalopathy Alcohol abuse, continuous Electrolyte and fluid disorders not elsewhere classified Alcoholic cirrhosis of liver with ascites (HCC) Portal hypertension (HCC) Accelerated hypertension Resolved Problems: * No resolved hospital problems. * ASSESSMENT & PLAN 1. Liver cirrhosis with GI bleed.EGD showed ulcer and portal hypertensive gastropathy. Con t PPI Cont ceftriaxone. 2. Alcohol withdrawal symptoms with tachycardia and tremors. Continue IV Ativan as needed based on CIWA scores. 3. Liver cirrhosis, thrombocytopenia, ascites, status post tap done about 2 days ago. Six liters of fluid was removed. Continue oral diuretics. 4. Acclerated htn Uncontrolled cont nadolol lasix and aldactone. Prn labetolol .5. Acute hepatic/ metabolic encephalopathy. Continue rifaximin and lactulose. Although it is mentioned that patient has anaphylaxis to lactulose, she has been tolerating it well Prognosis is guarded. Awaiting mentation to improve to work with PT Code Status: DNR/DNI Zana Cho MD 08/28/2018 1:32 PM onversion Tr ansaction, Provider Unknown - 08/28/2018 4:54 AM PDTFormatting of this note might be differ ent from the original. Nurse Progress Note by Rosalinda Callahan RN at 08/28/18453 Author: Rosalinda Callahan RN Service: (none) Author Type: Registered Nurse Filed: 08/28/18699 Date of Service: 08/28/18453 Status: Signed Recovery Unit Operator: Rosalinda Callahan RN (Registered Nurse) Pt disoriented x4 at times, other times oriented to person and place. CIWA scores from 8-1 8, ativan given x6. BP's elevated 170-200's systolic, HR 80's, afebrile. PRN labetalol given x1 for BP. Due to poor venous access, electrolytes could not be replaced per protocol. Pt had 4 IV's throughout the night. Pt incontinent x2, changed as needed. Since code status was in question, DNR/DNI band removed since last prior code status was "F ULL." Code status will need to be addressed on day shift. No other changes from shift assessment. End of shift review and 24 hour chart check complet ed. Rosalinda Callahan RN onver miriam Transaction, Provider Unknown - 08/27/2018 7:29 PM PDT Nurse Progress Note by Rosalinda Martinez RN at 08/27/181928 Author: Rosalinda Martinez RN Service: (none) Author Type: Registered Nurse Filed: 08/27/181946 Date of Service: 08/27/181928 Status: Addendum Recovery Unit Operator: Rosalinda Martinez RN (Registered Nurse) Related Notes: Original Note by Rosalinda Martinez RN (Registered Nurse) filed at 1944 Pt confused, waxes and wanes, was able to take PO morning meds, unable to take all evening PO meds due to mentation. Continued on CIWA per protocol, pt ranges from 8-20. notified a bout poor IV access, will order midline in AM. notified about poor oral hydration, D/C di uretics for 24 hrs, no IV hydration due to ascites. notified about prior code status and pt previous DNR/DNI. No current needs, end of shift review complete. Rosalinda Martinez RN. Zana Harkins i, MD - 08/27/2018 11:58 AM PDTFormatting of this note might be different fro m the original. Progress Notes by Zana Cho MD at 08/27/18 3889 Author: Zana Cho MD Service: Hospitalist Author Type: Physician Filed: 08/27/18 1200 Date of Service: 08/27/18 5329 Status: Signed Recovery Unit Operator: Zana Cho MD (Physician) [facility] Service: Hospitalist Progress Note Hospital Day: LOS: 2 days SUBJECTIVE Patient Summary: Events Overnight: Patient is alert confused. Mentation waxing and waning. Reports abd pain No CP or SOA. No more hematemesis walt or hematochezia. Hg stable Scheduled Medications cefTRIAXone 1 g Intravenous Q24H multivitamin & minerals w iron/FA 1 tablet Oral Daily with breakfast Or folic acid (FOLVITE) IVPB 1 mg Intravenous Daily with breakfast furosemide 40 mg Oral Daily lactulose 30 g Oral 4x Daily magnesium oxide 400 mg Oral BID nadolol 40 mg Oral Daily pantoprazole 40 mg Oral BID AC potassium chloride 20 mEq Oral TID WC rifaximin 550 mg Oral BID sodium chloride 10 mL Intravenous Q8H spironolactone 100 mg Oral Daily thiamine 100 mg Oral Daily Or thiamine (VITAMIN B1) IVPB 100 mg Intravenous Daily Continuous Infusions OBJECTIVE Vital Signs: BP (!) 170/98 | Pulse 91 | Temp 97.4 F (36.3 C) (Axillary) | Resp 24 | Ht 1.702 m ( 5' 7") | Wt 68.8 kg (151 lb 9.6 oz) | SpO2 97% | BMI 23.74 kg/m Physical Exam General Appearance: awake, alert, Slow to respond to quesion Eyes: No gross abnormalities. Neck: neck- supple, no mass, non-tender Lungs: Normal expansion. Clear to auscultation. No rales, rhonchi, or wheezing. Abdomen: Distended with dullness to percursion Extremities: Extremities warm to touch, pink, with no edema. Musculoskeletal: +=edema Lips small brusie from seizure DATA Recent Labs Lab 08/27/18 0500 08/26/18 0806 08/26/18 0231 08/25/18 1345 WBC 7.25 -- 7.25 -- 6.47 HGB 10.2* 9.4* 9.9* < > 8.8* HCT 29.1* 27.9* 29.1* < > 26.0* PLT 82* -- 60* -- 49* NEUTOPHILPCT 70.90 -- 83.70 -- 87.14 MONOPCT 15.87 -- 11.40 -- 7.57 < > = values in this interval not displayed. Recent Labs Lab 08/27/18 0500 08/26/18 0701 08/26/18 0232 08/26/18 0231 08/25/18 1345 NA 140 -- -- 137 -- 136 K 3.2* 3.9 3.7 3.8 < > 3.2* CL 107 -- -- 104 -- 105 CO2 24 -- -- 19* -- 17* BUN 11 -- -- 7* -- 8 CREATININE 0.8 -- -- 0.7 -- 0.57 PROT 6.1* -- -- 6.1* -- 5.9* BILITOT 0.8 -- -- 0.8 -- 1.2 ALT 8* -- -- 9* -- <7* AST 30 -- -- 30 -- 34 < > = values in this interval not displayed. Phosphorus: Lab Results Component Value Date PHOS 3.2 08/27/2018 Invalid input(s): LABALBU Recent Labs Lab 08/27/18 0500 08/26/18 1137 08/26/18 0701 MG 1.6* 1.7 1.6* No results for input(s): AMYLASE in the last 168 hours. No results for input(s): PHART, PO2ART, UYJ9NEM, B7VFFUVI, BEART in the last 168 hours. Recent Labs Lab 08/26/18 0231 08/25/18 1345 APTT 33* 32 INR 1.3 1.2 Recent Labs Lab 08/26/18 0231 TSH 1.120 Recent Labs Lab 08/25/18 1345 CKTOTAL 84 TROPONINI 0.069* CKMBINDEX 1.5 Radiology X-ray Ankle Right Result Date: 08/26/2018 Healing fractures involving the distal fibula and tibia. Signed by: Sukhwinder Ya Cameron Sign Date/Time: 08/26/2018 8:41 AM PROBLEM LIST Principal Problem: Hemorrhage of gastrointestinal tract, unspecified Active Problems: Alcohol withdrawal Thrombocytopenia, unspecified Anemia Seizure disorder, secondary Hypomagnesemia Alcohol abuse, continuous Electrolyte and fluid disorders not elsewhere classified Alcoholic cirrhosis of liver with ascites (HCC) Portal hypertension (HCC) Resolved Problems: * No resolved hospital problems. * ASSESSMENT & PLAN 1. Liver cirrhosis with GI bleed.EGD showed ulcer and portal hypertensive gastropathy. Con t PPI Cont ceftriaxone. 2. Alcohol withdrawal symptoms with tachycardia and tremors. Continue IV Ativan as needed based on CIWA scores. 3. Liver cirrhosis, thrombocytopenia, ascites, status post tap done about 2 days ago. Six liters of fluid was removed. Continue oral diuretics. 4. Acclerated htn Uncontrolled cont nadolol lasix and aldactone. Prn labetolol.5. Mild ac ruby hepatic/ metabolic encephalopathy. Continue rifaximin and lactulose. Although it is me ntioned that patient has anaphylaxis to lactulose, she has been tolerating it well over a ye ar. Prognosis is guarded. Code Status: Prior Zana Cho MD 08/27/2018 11:58 AM onversion Tr ansjacob, Provider Unknown - 08/27/2018 11:25 AM PDTFormatting of this note might be differ ent from the original. Therapy Progress Note by Eirca Venegas PT at 08/27/18 1125 Author: Erica Venegas PT Service: (none) Author Type: Physical Therapist Filed: 08/27/18 1130 Date of Service: 08/27/18 1125 Status: Signed Recovery Unit Operator: Erica Venegas PT (Physical Therapist) 08/27/18 1125 PT Last Visit PT Received On 08/27/18 Requires PT Follow Up On hold Other Comments Comments Pt has active strict bed rest orders in chart. Spoke with RN who states that charlye nt CIWA score is 20 and pt is disoriented and not following commands - not appropriate for t herapy at this time. PT to await resolution of bed rest orders and return as able/appropriat e. Yareli Vaughn PA - 08/27/2018 8:37 AM PDTFormatting of this note might be different from th e original. Progress Notes by PERNELL Wallace at 08/27/18 9071 Author: PERNELL Wallace Service: Gastroenterology Author Type: Physician Assistan t - Certified Filed: 08/27/18 1214 Date of Service: 08/27/1837 Status: Attested Recovery Unit Operator: PERNELL Wallace (Physician Cloth Printing Utility Worker - Certified) Cosigner: Mitchell Stewart IV, MD at 08/27/182143 Attestation signed by Mitchell Stewart IV, MD at 08/27/182143 GASTROENTEROLOGY ATTENDING ATTESTATION The advanced practice provider made rounds on this patient. I did not formally evaluate pat ient in person today. We discussed the case and I agree with the assessment and plan as wri jenae. [facility] Service: Gastroenterology Consult Progress Note Hospital Day: LOS: 2 days SUBJECTIVE Patient Summary: Shaila Son is a 48 y.o. female Patient with ongoing alcohol abuse and history of alcohol associated cirrhosis with reporte dly remote variceal band ligation, ascites, episodes of hepatic encephalopathy, previous alc ohol associated seizures and withdrawal syndrome transferred to [facility] due to presenting to [facility] with episodes of coffee-ground emesis and ongoing tachycardia and hypertension. I did speak with the transferring medical provider who described coffee groun d emesis but no overt red hematemesis. Apparently while there she underwent CT scan showing ascites for which she underwent therapeutic and diagnostic paracentesis of 6 L of fluid. Soledad l count of the ascites reportedly low though we do not have an official report. May have had seizure-like activity briefly while there. Transfused either 1 or 2 units PRBC unclear. Presentation here in the emergency department she remained tachycardic and hypertensive. Wh en inquired of her, she is alert to person, place, time and somewhat events. When inquired w hy she was transferred here she claims due to withdrawals. Claims her last alcohol was about 2-3 days which has given her severe shakes. Alcohol level was elevated at [facility] but obviously not known how high she normally runs. Typically an ongoing alcohol ism. Claims her abdomen had been getting bigger and causing discomfort. She has had no inten tion in stopping alcohol use in the past. View record shows transfer here in 2011 for similar type presentation. I performed EGD at t hat time which did not show any varices present. She had portal hypertensive gastropathy at that time. Right ankle has loosely place David wrap on it that she had put on. She thinks she twisted a few weeks ago. Has difficulty walking on it. Claims she had x-rays done in [place]. Events Overnight: Had EGD and showed portal hypertensive gastropathy and nonbleeding gastric ulcer. Withdrawing still. H/H stable. Still very out of it and can't really have a c onversation with me. Scheduled Medications cefTRIAXone 1 g Intravenous Q24H multivitamin & minerals w iron/FA 1 tablet Oral Daily with breakfast Or folic acid (FOLVITE) IVPB 1 mg Intravenous Daily with breakfast furosemide 40 mg Oral Daily lactulose 30 g Oral 4x Daily magnesium oxide 400 mg Oral BID nadolol 40 mg Oral Daily pantoprazole 40 mg Intravenous BID rifaximin 550 mg Oral BID sodium chloride 10 mL Intravenous Q8H spironolactone 100 mg Oral Daily thiamine 100 mg Oral Daily Or thiamine (VITAMIN B1) IVPB 100 mg Intravenous Daily Continuous Infusions octreotide 50 mcg/hr (08/27/18 0653) PRN Medications acetaminophen OR acetaminophen, labetalol, LORazepam, magnesium sulfate OR magnesiu m sulfate OR magnesium sulfate, ondansetron OR ondansetron, phosphorus OR sodium phosphate IVPB 15 mmol OR sodium phosphate IVPB 30 mmol, polyethylene glycol, potassium chloride OR potassium chloride OR potassium chloride OBJECTIVE Vital Signs: BP (!) 183/99 (BP Location: Left upper arm) | Pulse 88 | Temp 98 F (36.7 C) (Axillary ) | Resp 22 | Ht 1.702 m (5' 7") | Wt 68.8 kg (151 lb 9.6 oz) | SpO2 97% | BMI 23.74 kg /m GENERAL: Well developed, well nourished, in no distress. Appears approximately stated age. HEENT: Normocephalic, atraumatic. EYES: PERRL, sclerae anicteric, no xanthelsasmas MOUTH: Oral mucosae moist, dentition adequate, no lesions noted. NECK: No JVD, lymphadenopathy, thyromegaly, bruits. Carotid pulses are 2+ bilaterally LUNGS: Clear bilaterally, with no rales, rhonchi or wheezing noted, respirations unlabored HEART: Nondisplaced PMI, regular rate and rhythm, S1, S2 normal. No murmurs, rubs or gallop s noted. ABDOMEN: Soft, nontender, nondistended. No organomegaly, masses or bruits. Bowel sounds are normal in all 4 quadrants. The abdominal aortic pulsation is not palpable. EXTREMITIES: no clubbing, cyanosis or edema. Pulses palpable and equal distally. SKIN: Warm and dry, capillary refill is normal, no lesions. No jaundice. NEUROLOGIC: Awake, alert but disoriented. Speech isn't clear. No focal motor deficits. DATA Lab Results Component Value Date WBC 7.25 08/27/2018 HGB 10.2 (L) 08/27/2018 HCT 29.1 (L) 08/27/2018 MCV 91.9 08/27/2018 PLT 82 (L) 08/27/2018 Lab Results Component Value Date AST 30 08/27/2018 ALT 8 (L) 08/27/2018 BILITOT 0.8 08/27/2018 CREATININE 0.8 08/27/2018 ALB 1.4 (L) 08/27/2018 LIPASE 145 04/09/2016 Lab Results Component Value Date INR 1.3 08/26/2018 INR 1.2 08/25/2018 INR 1.3 04/10/2016 [facility] GI Patient Name: Shaila SonDania Procedure Date: 08/26/2018 5:27 PM Date of : 1970 Note Status: Finalized Attending MD: Mitchell Stewart IV , Instrument Name: [id number] Gastroscope Procedure Type: Upper GI endoscopy Indications: Coffee-ground emesis, Ongoing alcoholism, limited coffee-ground emesis, alcohol withdrawals, has previously voiced no interest in alcohol rehab Medicines: Monitored Anesthesia Care, See the Anesthesia note for documentation of the administered medications Complications: No immediate complications. Procedure: Pre-Anesthesia Assessment: - Prior to the procedure, a History and Physical was performed, and patient medications and allergies were reviewed. The patient's tolerance of previous anesthesia was also reviewed. The risks and benefits of the procedure and the sedation options and risks were discussed with the patient. All questions were answered, and informed consent was obtained. Prior Anticoagulants: The patient has taken no previous anticoagulant or antiplatelet agents. ASA Grade Assessment: III - A patient with severe systemic disease. After reviewing the risks and benefits, the patient was deemed in satisfactory condition to undergo the procedure. After obtaining informed consent, the endoscope was passed under direct vision. Throughout the procedure, the patient's blood pressure, pulse, and oxygen saturations were monitored continuously. The Endoscope was introduced through the mouth, and advanced to the third part of duodenum. The upper GI endoscopy was accomplished without difficulty. The patient tolerated the procedure well. Estimated Blood Loss: Estimated blood loss: none. Findings: The Z-line was regular and was found 39 cm from the incisors. The examined esophagus was normal. Severe, diffuse portal hypertensive gastropathy was found in the gastric fundus and in the gastric body. One non-bleeding superficial gastric ulcer with no stigmata of bleeding was found on the greater curvature of the gastric antrum. The lesion was 3 mm in largest dimension. The examined duodenum was normal. Rather pronounced camara-red portal gastropathy involving the majority of the fundus and gastric body. No visible blood in the stomach. Small superficial clean-based ulceration in the antrum without any stigmata suggesting bleeding. No esophageal or gastric varices seen. No evidence of recurrent major bleeding evident. Suspect her limited coffee-ground emesis related to the portal hypertensive gastropathy. Impression: - Z-line regular, 39 cm from the incisors. - Normal esophagus. - Portal hypertensive gastropathy. - Non-bleeding gastric ulcer with no stigmata of bleeding. - Normal examined duodenum. - Rather pronounced camara-red portal gastropathy involving the majority of the fundus and gastric body. No visible blood in the stomach. Small superficial clean-based ulceration in the antrum without any stigmata suggesting bleeding. No esophageal or gastric varices seen. No evidence of recurrent major bleeding evident. Suspect her limited coffee-ground emesis related to the portal hypertensive gastropathy. - No specimens collected. Recommendation: - Return patient to [facility] for [facility] care. - Resume previous diet. - Continue present medications. - Should continue on PPI therapy for at least 8 weeks due to the ulceration present. - Octreotide could be stopped in the morning and patient observed since suspect the limited hematemesis was more related to repeated vomiting. - Management of alcoholism withdrawal syndrome would be the primary goal at this point. Should investigate further but patient has voiced no interest in rehab previously. - The findings and recommendations were discussed with the patient's family. - I spoke with the patient's brother Meño by phone regarding findings on EGD post procedure. Mitchell Stewart IV, 08/26/2018 5:55:33 PM This report has been signed electronically. Note Initiated On: 08/26/2018 5:27 PM Number of Addenda: 0 [facility] - Endoscopy Services PROBLEM LIST Principal Problem: Hemorrhage of gastrointestinal tract, unspecified Active Problems: Alcohol withdrawal Thrombocytopenia, unspecified Anemia Seizure disorder, secondary Hypomagnesemia Alcohol abuse, continuous Electrolyte and fluid disorders not elsewhere classified Alcoholic cirrhosis of liver with ascites (HCC) Portal hypertension (HCC) ASSESSMENT 1. Hematemesis- self-limited, likely due to portal hypertensive gastropathy. 2. Gastric ulcer- nonbleeding 3. Alcohol withdrawal/alcoholism- no previous interest in rehab PLAN 1. Alcohol cessation would be the priority for her at this time. 2. Recommend PPI BID for 8 weeks due to gastric ulcer. 3. Diet as tolerated. 4. Monitor H/H 5. GI will sign off at this time. Yareli Mckinnon PA-C [facility] Gastroenterology 08/27/2018 onversion Transa ction, Provider Unknown - 08/27/2018 6:00 AM PDT Nurse Progress Note by Sandi Melgar RN at 08/27/18599 Author: Sandi Melgar RN Service: (none) Author Type: Registered Nurse Filed: 08/27/18603 Date of Service: 08/27/18599 Status: Signed Recovery Unit Operator: Sandi Melgar RN (Registered Nurse) Pt A&Ox4, VSS, afebrile. PRN ativan given per CIWA score and orders. Pt has auditory and visual hallucinations at times. Walking boot on to protect foot/leg. 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 ABD remains distended but soft and active bowel sounds. Pt denied vomiting, but did c/o nausea a few times. No acute changes to from previous shift. Chart check complete. Sandi Melgar RN onver miriam Transaction, Provider Unknown - 08/26/2018 6:07 PM PDT Nurse Progress Note by Josie Tovar RN at 08/26/181806 Author: Josie Tovar RN Service: (none) Author Type: Registered Nurse Filed: 08/26/181809 Date of Service: 08/26/181806 Status: Addendum Recovery Unit Operator: Josie Tovar RN (Registered Nurse) Related Notes: Original Note by Josie Tovar RN (Registered Nurse) filed at 08/26/18 18 10 Patient had EGD done this afternoon. Patient is back and awake, Ice chips given. CIWA renuka nued and medicated as needed. BP remains elevated, MD aware, a one time dose of labetolol gi shawn in between doses. Lytes replaced per protocol. End of shift review complete. Will contin ue to monitor. JOSIE TOVAR RN onver miriam Transaction, Provider Unknown - 08/26/2018 4:39 PM PDT Nurse Progress Note by Josie Tovar RN at 08/26/18 1639 Author: Josie Tovar RN Service: (none) Author Type: Registered Nurse Filed: 08/26/18 1641 Date of Service: 08/26/18 1639 Status: Signed Recovery Unit Operator: Josie Tovar RN (Registered Nurse) Patient was given 10mg labetalol right before going down for procedure, passed on to OPP, t hey will recheck BP downstairs. JOSIE TOVAR RN onver miriam Transaction, Provider Unknown - 08/26/2018 4:20 PM PDT Case Management by Jodie Sebastian RN at 08/26/18 1620 Author: Jodie Sebastian RN Service: (none) Author Type: Registered Nurse Filed: 08/26/18 1628 Date of Service: 08/26/18 1620 Status: Addendum Recovery Unit Operator: Jodie Sebastian RN (Registered Nurse) Related Notes: Original Note by Jodie Sebastian RN (Registered Nurse) filed a t 08/26/18 1627 08/26/18 1600 Discharge Planning Evaluation Admitting Diagnosis Thrombocytopenia Readmission No Living Arrangements Spouse/significant other Support Systems Spouse/significant other;Family members Type of Residence Private residence Independent with ADL's No-comment (needs assist ) Independent with Mobility No-comment (uses a walker or wheelchair ) Caregiver after Discharge Yes Caregiver Name Conner Vazquez Relationship to Patient boyfriend Phone number [phone] Mental Status Confused Prior functional status needs assist with ADL's, uses a walker or wheelchair Anticipated Discharge Plan Post Acute Care Needs Other (comment) (TBD) Plan communicated to patient/family Yes Resources Financial concerns No Transportation issues No Patient/Family concerns No Prescription Plan Yes Name of Pharmacy [facility] Previous home health equipment Yes (walker and wheelchair) Anticipated Disposition Facility Type Other (Comment) (TBD) CM contacted pt's brother Viktor Son #[phone] as pt is currently confused and dis cussed discharge planning, per Viktor pt is a 48 y.o., female who lives with her boyfriend Kendal Vazquez #[phone] and he assists in pt's care. iVktor is unsure of pt's housing si tuation or if she has a POA. Pt needs assist with ADL's and uses a walker or wheelchair for ambulation. Pt does not use oxygen or anticoagulation. Patient's PCP is: Ana M Brush Patient's insurance: Medicaid/ [employer] Coverage concerns: no Medication coverage/concerns: no Rx Bedside Delivery: TBD Community resources utilized / needed: TBD Assistance in transportation: TBD Identification of any specific education / training: no Barriers to Discharge / Alternative housing needed: TBD Anticipated DCP: TBD Jodie Sebastian RN onver miriam Rangel, Provider Unknown - 08/26/2018 3:33 PM PDT Nurse Progress Note by Josie Tovar RN at 08/26/18 1533 Author: Josie Tovar RN Service: (none) Author Type: Registered Nurse Filed: 08/26/18 1536 Date of Service: 08/26/18 1533 Status: Signed Recovery Unit Operator: Josie Tovar RN (Registered Nurse) Spoke to rah Wilder brother, he is listed as patients emergency contact from previous admission. He would be able to consent for procedure if necessary. OPP is aware. Patient is to be scheduled this evening for EGD. Viktor's phone number has been updated in patients ann rt. JOSIE TOVAR RN Zana Harkins i, MD - 08/26/2018 2:10 PM PDTFormatting of this note might be different fro m the original. Progress Notes by Zana Coh MD at 08/26/18 3020 Author: Zana Cho MD Service: Hospitalist Author Type: Physician Filed: 08/27/18 1149 Date of Service: 08/26/18 1410 Status: Signed Recovery Unit Operator: Zana Cho MD (Physician) Related Notes: Original Note by Zana Cho MD (Physician) filed at 08/26/18 1413 [facility] Service: Hospitalist Progress Note Hospital Day: LOS: 1 day SUBJECTIVE Patient Summary: Events Overnight: Patient is alert confused. Mentation waxing and waning. Reports abd pain No CP or SOA. No more hematemesis walt or hematochezia. Hg stable Scheduled Medications cefTRIAXone 1 g Intravenous Q24H multivitamin & minerals w iron/FA 1 tablet Oral Daily with breakfast Or folic acid (FOLVITE) IVPB 1 mg Intravenous Daily with breakfast [START ON 08/27/2018] furosemide 40 mg Oral Daily lactulose 30 g Oral 4x Daily magnesium oxide 400 mg Oral BID nadolol 40 mg Oral Daily pantoprazole 40 mg Intravenous BID rifaximin 550 mg Oral BID sodium chloride 10 mL Intravenous Q8H spironolactone 100 mg Oral Daily thiamine 100 mg Oral Daily Or thiamine (VITAMIN B1) IVPB 100 mg Intravenous Daily Continuous Infusions octreotide 50 mcg/hr (08/26/18 1104) OBJECTIVE Vital Signs: BP (!) 186/108 (BP Location: Left upper arm) | Pulse 102 | Temp 98.1 F (36.7 C) (Axil fabian) | Resp 28 | Ht 1.702 m (5' 7") | Wt 68.9 kg (152 lb) | SpO2 98% | BMI 23.81 kg/m Physical Exam General Appearance: awake, alert, Slow to respond to quesion Eyes: No gross abnormalities. Neck: neck- supple, no mass, non-tender Lungs: Normal expansion. Clear to auscultation. No rales, rhonchi, or wheezing. Abdomen: Distended with dullness to percursion Extremities: Extremities warm to touch, pink, with no edema. Musculoskeletal: +=edema Lips small brusie from seizure DATA Recent Labs Lab 08/26/18 0806 08/26/18 0231 08/25/18 2345 08/25/18 1345 WBC -- 7.25 -- -- 6.47 HGB 9.4* 9.9* 9.8* < > 8.8* HCT 27.9* 29.1* 28.7* < > 26.0* PLT -- 60* -- -- 49* NEUTOPHILPCT -- 83.70 -- -- 87.14 MONOPCT -- 11.40 -- -- 7.57 < > = values in this interval not displayed. Recent Labs Lab 08/26/18 0701 08/26/18 0232 08/26/18 0231 08/25/18 1345 NA -- -- 137 -- 136 K 3.9 3.7 3.8 < > 3.2* CL -- -- 104 -- 105 CO2 -- -- 19* -- 17* BUN -- -- 7* -- 8 CREATININE -- -- 0.7 -- 0.57 PROT -- -- 6.1* -- 5.9* BILITOT -- -- 0.8 -- 1.2 ALT -- -- 9* -- <7* AST -- -- 30 -- 34 < > = values in this interval not displayed. Phosphorus: Lab Results Component Value Date PHOS 3.7 08/26/2018 Invalid input(s): LABALBU Recent Labs Lab 08/26/18 1137 08/26/18 0701 08/26/18 0232 MG 1.7 1.6* 1.4* No results for input(s): AMYLASE in the last 168 hours. No results for input(s): PHART, PO2ART, AZH6MOC, Q3NWKKPJ, BEART in the last 168 hours. Recent Labs Lab 08/26/18 0231 08/25/18 1345 APTT 33* 32 INR 1.3 1.2 Recent Labs Lab 08/26/18 0231 TSH 1.120 Recent Labs Lab 08/25/18 1345 CKTOTAL 84 TROPONINI 0.069* CKMBINDEX 1.5 Radiology X-ray Ankle Right Result Date: 08/26/2018 Healing fractures involving the distal fibula and tibia. Signed by: Sukhwinder Ya Cameron Sign Date/Time: 08/26/2018 8:41 AM PROBLEM LIST Principal Problem: Hemorrhage of gastrointestinal tract, unspecified Active Problems: Alcohol withdrawal Thrombocytopenia, unspecified Anemia Seizure disorder, secondary Hypomagnesemia Alcohol abuse, continuous Electrolyte and fluid disorders not elsewhere classified Alcoholic cirrhosis of liver with ascites (HCC) Portal hypertension (HCC) Resolved Problems: * No resolved hospital problems. * ASSESSMENT & PLAN 1. Liver cirrhosis with GI bleed. Continue IV Protonix and octreotide, awaiting family me mber to consent for EGD. 2. Alcohol withdrawal symptoms with tachycardia and tremors. Continue IV Ativan as needed based on CIWA scores. 3. Liver cirrhosis, thrombocytopenia, ascites, status post tap done about 2 days ago. Six liters of fluid was removed. Continue oral diuretics. 4. Elevated blood pressure. Continue nadolol, lactulose, Aldactone. 5. Mild acute hepatic encephalopathy. Continue rifaximin and lactulose. Although it is m entioned that patient has anaphylaxis to lactulose, she has been tolerating it well over a y ear. Prognosis is guarded. Code Status: DNR/DNI Zana Cho MD 08/26/2018 2:10 PM onversion Tr ansaction, Provider Unknown - 08/26/2018 12:10 PM PDTFormatting of this note might be differ ent from the original. Case Management by Jodie Sebastian RN at 08/26/18 1210 Author: Jodie Sebastian RN Service: (none) Author Type: Registered Nurse Filed: 08/26/18 1553 Date of Service: 08/26/18 1210 Status: Signed Recovery Unit Operator: Jodie Sebastian RN (Registered Nurse) Pt is currently confused and RN is awaiting to get pt's brothers number in order to help as sist with assessment. onver miriam Transaction, Provider Unknown - 08/26/2018 12:05 PM PDT Nurse Progress Note by Josie Tovar RN at 08/26/18 1205 Author: Josie Tovar RN Service: (none) Author Type: Registered Nurse Filed: 08/26/18 1210 Date of Service: 08/26/18 1205 Status: Signed Recovery Unit Operator: Josie Tovar RN (Registered Nurse) Received a call this AM from Conner Vazquez, this person stated he was caring for patient f or past few months. Per patient, when awake, was able to state that she knew Conner and was ok with information being shared with him. Conner states he has the patients brothers number whom lives in [place], but did not have it on hand. He will call back and give us the number as soon as he can. Biju'ls number are [phone] or [phone]. JOSIE TOVAR RN onver miriam Transaction, Provider Unknown - 08/26/2018 6:18 AM PDT Nurse Progress Note by Sandi Melgar RN at 08/26/18617 Author: Sandi Melgar RN Service: (none) Author Type: Registered Nurse Filed: 08/26/18625 Date of Service: 08/26/18617 Status: Signed Recovery Unit Operator: Sandi Melgar RN (Registered Nurse) Pt A&Ox3, disoriented to situation. Afebrile. Pt had HR in the 120-130 sustained, metopro lol given, pt responded appropriately. CIWA protocol followed. CIWA range from 16-5 and at keren given per order. Pt incontinent of bowel and bladder at times. On bedrest. Mag and K replaced per protocol. H&H stable with most recent 9.9/29.1. Bedside swallow performed by RN per Dr. Wu's request to assess if pt can take PO lactulose. Pt coughed once with crack er, had a good swallow, and no more issues. PO lactulose given with no issues. Will pass t o day shift RN to repeat swallow. Chart check complete. onver miriam Transaction, Provider Unknown - 08/25/2018 7:47 PM PDT Nurse Progress Note by Princess Bower RN at 08/25/181946 Author: Princess Bower RN Service: (none) Author Type: Registered Nurse Filed: 08/25/181949 Date of Service: 08/25/181946 Status: Signed Recovery Unit Operator: Princess Bower, RN (Registered Nurse) Pt transferred to floor from ED. HR and BP elevated. MD notified. Pt medicated for CIWA score of 15 with 4 mg Ativan x2 during shift. Pt lethargic and oriented x2-3, with delayed responses. No emesis since arrival to floor, no overt signs of bleeding. Princess alford RN onver miriam Transaction, Provider Unknown - 08/25/2018 5:00 PM PDT Progress Notes by Elida Cruz RPH at 08/25/181699 Author: Elida Cruz RPH Service: Pharmacy Author Type: Pharmacist Filed: 08/25/181699 Date of Service: 08/25/181699 Status: Signed Recovery Unit Operator: Elida Cruz RPH (Pharmacist) Renal Dosing Monitoring: Shaila Son 48 y.o. female Pharmacy dosing for renal function per Dr. Paulina Wu Serum creatinine: 0.57 mg/dL 08/25/18 1345 Estimated creatinine clearance: 118.7 mL/min Plan per protocol: No medications need adjustment at this time Pharmacy will continue to monitor changes in medication orders and renal function and will adjust accordingly. 08/25/2018 5:00 PM Pharmacist: Elida Cruz docume nted in this encounter H&P Notes Mitchell Stewart MD - 08/26/2018 5:22 PM PDT H&P by Mitchell Stewart IV, MD at 08/26/181721 Author: Mitchell Stewart IV, MD Service: Gastroenterology Author Type: Physician Filed: 08/26/181722 Date of Service: 08/26/181721 Status: Signed Recovery Unit Operator: Mitchell Stewart IV, MD (Physician) [facility] Service: Gastroenterology Service Pre-procedure History & Physical Update Patient Name: Shaila Son Date of Admission: 08/26/2018 On reexamination of the patient and patient's chart today, there are no changes. Moderate Sedation Presedation Assessment completed. ASA Classification: Per Anesthesia Service Mallampati Classification: Per Anesthesia Service Tod Stewart IV, M.D. [facility] Gastroenterology 08/26/2018 aulina Wu M D - 08/25/2018 3:10 PM PDT H&P by Paulina Wu MD at 08/25/181509 Author: Paulina Wu MD Service: Hospitalist Author Type: Physician Filed: 08/25/182135 Date of Service: 08/25/181509 Status: Addendum Recovery Unit Operator: Paulina Wu MD (Physician) Related Notes: Original Note by Paulina Wu MD (Physician) filed at 08/25/181815 [facility] Service: Hospitalist Admission History & Physical Pt: Shaila Son AGE/SEX: 48 y.o. female Date of Admission: 08/25/2018 Reason for Admission: upper GI bleeding, ETOH withdrawal History Obtained From: patient CHIEF COMPLAINT: hematemesis HISTORY OF PRESENT ILLNESS The patient is a 48 y.o. female with significant past medical history of ETOH abuse, liver cirrhosis with portal hypertension, ascites and esophageal varices s/p banding in 2010, HTN presented to [facility] ED for hematemesis, transferred here for GI evaluation and manage ment. About 2 days prior to patient's transfer, she reported having watery stools 3-4 times which she reported were normal color, diffuse abdominal pain, and nausea and vomiting with blood tinged. Her diarrhea resolved but she had several more episodes of vomiting finally promptin g consult at the local ED. At the ED, patient was afebrile, tachycardic but with stable BP. Her labs showed hyponatremia at 128, hypokalemia, severe hypoMg, normal creatinine, albumi n of 1.5, normal TBil, normal wbc, hgb of 8.2 and platelet of 61. Ethanol level was 140. Her INR was 1.3 CT abdomen showed cirrhosis with portal hypertension, large volume ascites, and cholelithiasis. She underwent paracentesis and was able to drain 6L of fluid. 50gm of album in was given. Fluid wbc was reportedly 4 (not in transfer pack . She reportedly had seizure like activity lasting for about a minute. While at the ED she also 2 episodes of hematemesi s. She received 2 units of pRBC and request for transfer was made to [facility] ED. Active comorbid conditions include: - essential hypertension - anemia - moderate protein-calorie malnutrition - seizures - cirrhosis, alcoholic liver disease Patient is negative for: murmur REVIEW OF SYSTEMS Review of Systems Constitutional: Negative for chills and fever. HENT: Negative for sore throat. Eyes: Negative for blurred vision. Respiratory: Negative for cough, sputum production and shortness of breath. Cardiovascular: Positive for chest pain. Gastrointestinal: Positive for abdominal pain, diarrhea and vomiting. Genitourinary: Negative for dysuria, frequency and urgency. Musculoskeletal: Negative for joint pain and myalgias. Skin: Negative for rash. Neurological: Positive for tremors and seizures. Negative for sensory change and headaches. Psychiatric/Behavioral: The patient is not nervous/anxious. Past Medical History Diagnosis Date Anemia Hemorrhage of gastrointestinal tract, unspecified Hypertension Liver disease Seizures (HCC) Past Surgical History Procedure Laterality Date BACK SURGERY ESOPHAGOGASTRODUODENOSCOPY N/A 07/30/2011 Procedure: ESOPHAGOGASTRODUODENOSCOPY; Surgeon: Mitchell Stewart IV, MD; Location: [facility]; Service: Gastroenterology; Laterality: N/A; anesthesia assist if available since may be difficult to sedate Hx of tracheostomy Allergies Allergen Reactions Aspirin Anaphylaxis Pt unable to recall, this information came from [facility] record Lactose Anaphylaxis Pt unable to recall, this information came from [facility] record Ciprofloxacin Other (See Comments) Pt. Unable to recall, this information came from [facility] record Ibuprofen Other (See Comments) Pt. Unable to recall, this information came from [facility] record Prior to Admission medications Medication Sig Start Date End Date Taking? Authorizing Provider amLODIPine (NORVASC) 2.5 MG tablet Take 5 mg by mouth daily. 06/29/18 Historical Provider furosemide (LASIX) 20 MG tablet Take 2 tablets by mouth 2 (two) times daily. 04/17/16 04/17/17 Claude Dominique MD lactulose (CHRONULAC) 10 GM/15ML solution Take 10 g by mouth 2 (two) times daily. Histor ical Provider magnesium oxide (MAG-OX) 400 MG tablet Take 1 tablet by mouth 2 (two) times daily. 02/13/14 10/05/14 Micki Redding MD pantoprazole (PROTONIX) 40 MG tablet Take 40 mg by mouth every morning before breakfast. Historical Provider Vit-Fe Fumarate-FA ( MULTIVITAMIN & MINERALS W IRON/FA) 27-0.8 MG TABS tab let Take 1 tablet by mouth daily. 03/28/13 Precious Miller MD spironolactone (ALDACTONE) 25 MG tablet Take 100 mg by mouth daily. Historical Provider thiamine (VITAMIN B-1) 100 MG tablet Take 1 tablet by mouth daily. 10/07/14 10/07/15 Precious flores MD ursodiol (ACTIGALL) 300 MG capsule Take 300 mg by mouth 2 (two) times daily. Historical Provider No family history on file. Social History History Smoking Status Former Smoker Smokeless Tobacco Not on file History Alcohol Use Yes Comment: 6 pack per day History Drug Use No PHYSICAL EXAM Vital Signs: BP (!) 169/105 | Pulse 154 | Temp 99.5 F (37.5 C) (Temporal) | Resp 22 | SpO2 99% Physical Exam Constitutional: She is oriented to person, place, and time. Middle aged lady not in any respiratory distress but in some discomfort HENT: Head: Normocephalic and atraumatic. Mouth/Throat: Oropharynx is clear and moist. Eyes: Pupils are equal, round, and reactive to light. Conjunctivae are normal. No scleral i cterus. Neck: Normal range of motion. Neck supple. Cardiovascular: No murmur heard. Tachycardic, regular rhythm Pulmonary/Chest: Effort normal and breath sounds normal. She has no wheezes. She has no ral es. Abdominal: Soft. Bowel sounds are normal. Tender all over Musculoskeletal: She exhibits no edema. Neurological: She is alert and oriented to person, place, and time. No cranial nerve defici t. + tremors Skin: Skin is warm. DATA CBC: Lab Results Component Value Date WBC 6.47 08/25/2018 RBC 2.80 (L) 08/25/2018 HGB 8.8 (L) 08/25/2018 HCT 26.0 (L) 08/25/2018 MCV 92.9 08/25/2018 MCH 31.5 08/25/2018 MCHC 33.9 08/25/2018 RDW 50.8 08/25/2018 PLT 49 (LL) 08/25/2018 MPV 7.7 08/25/2018 DIFFTYPE AUTOMATED 08/25/2018 CMP: Lab Results Component Value Date NA 136 08/25/2018 K 3.2 (L) 08/25/2018 CL 105 08/25/2018 CO2 17 (L) 08/25/2018 ANIONGAP 17 08/25/2018 GLUF 74 08/25/2018 BUN 8 08/25/2018 CREATININE 0.57 08/25/2018 BCR 14 08/25/2018 CA 7.3 (L) 08/25/2018 PROT 5.9 (L) 08/25/2018 ALB 2.4 (L) 08/25/2018 GLOB 3.5 08/25/2018 BILITOT 1.2 08/25/2018 ALP 95 08/25/2018 AST 34 08/25/2018 ALT <7 (L) 08/25/2018 EGFR >60 08/25/2018 PT/INR: Lab Results Component Value Date INR 1.2 08/25/2018 PTT: Lab Results Component Value Date APTT 32 08/25/2018 [APTT} No results found. PROBLEM LIST Principal Problem: Hemorrhage of gastrointestinal tract, unspecified Active Problems: Alcohol withdrawal Thrombocytopenia, unspecified Anemia Seizure disorder, secondary Hypomagnesemia Alcohol abuse, continuous Electrolyte and fluid disorders not elsewhere classified Alcoholic cirrhosis of liver with ascites (HCC) Portal hypertension (HCC) ASSESSMENT & PLAN UGIB possible esophageal variceal bleeding, portal gastropathy S/p 2 units pRBC Continue to monitor H/H On protonix drip, octreotide drip antibiotic coverage with ceftriaxone for prophylaxis GI consulted, planned for EGD Prn zofran Monitor VS closely Monitor for recurrence of bleeding closely Alcohol abuse with withdrawal symptoms CIWA protocol in place Telemetry Seizure precauctions Folate and thiamine Counseling Anemia secondary to acute blood loss On top of underlying anemia from related to ETOH Monitor H/H Transfuse pRBC as necessary to keep hgb 7-8 Thrombocytopenia Secondary to chronic liver disease Will monitor closely Hypomagnesemia Mg now 1.5 Will correct Continue to monitor and give additional correction as necessary Hypokalemia Will replete per protocol Correct Mg Continue to monitor Chronic alcoholic liver disease with portal hypertension Resume lactulose 30gm TID to make ~ 3BMs per day Resume lasix and aldactone for ascites Resume nadolol 40mg daily esphageal varices Right ankle fracture For xray right ankle Keep immobilized for now with boot Orthopedic consult as necessary DVT prophylaxis with SCDs The plan has explained in detail to the patient , all questions were answered.All data was reviewed. Disposition: For admission Code Status: Prior Primary Care Physician: Ana M Wu MD 08/25/2018 3:43 PM documented in this enc ounter Procedure Notes Amelia Gibson ARNP - 09/03/2018 12:58 PM PDTFormatting of this note might be different fr om the original. Procedures by SHANIA Panchal at 09/03/18 2268 Author: SHANIA Panchal Service: Radiology Author Type: Advanced Registered Nurse Sonam buck Filed: 09/03/18 8259 Date of Service: 09/03/18 0048 Status: Signed Recovery Unit Operator: SHANIA Panchal (Advanced Registered Nurse Practitioner) Pre-procedure Diagnoses: 1. Other ascites [R18.8] Post-procedure Diagnoses: 1. Other ascites [R18.8] Procedures: 1. PARACENTESIS [EBL630 (Custom)] Therapeutic and diagnostic ultrasound-guided paracentesis performed at bedside. 3000 mL of clear, yellow fluid removed. Patient tolerated procedure well, vital signs remained stable throughout the procedure. No immediate post procedural complications encountered. See dictation for full details. SHANIA Panchal 09/03/2018 1:03 PM Mitchell Rose MD - 08/26/2018 5:27 PM PDT Procedures signed by at 08/26/18 7570 Author: Mitchell Stewart IV, MD Service: Gastroenterology Author Type: Physician Filed: 08/26/18 5960 Date of Service: 08/26/18 7223 Status: Signed Recovery Unit Operator: Mitchell Stewart IV, MD (Physician) Procedure Orders: 1. EGD [[id number]] ordered by Mitchell Stewart IV, MD at 08/26/18 1650 documented in th is encounter Consult Notes Mitchell Stewart MD - 08/25/2018 4:03 PM PDT Consult* by Mitchell Stewart IV, MD at 08/25/18 1603 Author: Mitchell Stewart IV, MD Service: Gastroenterology Author Type: Physician Filed: 08/25/18 1711 Date of Service: 08/25/18 1603 Status: Signed Recovery Unit Operator: Mitchell Stewart IV, MD (Physician) [facility] Gastroenterology Service Initial Inpatient Consult Note Date of Visit: 08/25/2018 Primary Care Physician: Ana M Brush Reason for Consultation: Coffee-ground emesis, alcohol associated cirrhosis Requesting Physician: Dr. Paulina Wu, Hospitalist History Obtained From: patient, chart review CHIEF COMPLAINT: Chief Complaint Patient presents with Hematemesis Alcohol Problem HISTORY OF PRESENT ILLNESS Shaila Son is a 48 y.o. female Patient with ongoing alcohol abuse and history of alcohol associated cirrhosis with reporte dly remote variceal band ligation, ascites, episodes of hepatic encephalopathy, previous alc ohol associated seizures and withdrawal syndrome transferred to [facility] due to presenting to [facility] with episodes of coffee-ground emesis and ongoing tachycardia and hypertension. I did speak with the transferring medical provider who described coffee groun d emesis but no overt red hematemesis. Apparently while there she underwent CT scan showing ascites for which she underwent therapeutic and diagnostic paracentesis of 6 L of fluid. Soledad l count of the ascites reportedly low though we do not have an official report. May have had seizure-like activity briefly while there. Transfused either 1 or 2 units PRBC unclear. Presentation here in the emergency department she remained tachycardic and hypertensive. Wh en inquired of her, she is alert to person, place, time and somewhat events. When inquired w hy she was transferred here she claims due to withdrawals. Claims her last alcohol was about 2-3 days which has given her severe shakes. Alcohol level was elevated at [facility] but obviously not known how high she normally runs. Typically an ongoing alcohol ism. Claims her abdomen had been getting bigger and causing discomfort. She has had no inten tion in stopping alcohol use in the past. View record shows transfer here in 2011 for similar type presentation. I performed EGD at t hat time which did not show any varices present. She had portal hypertensive gastropathy at that time. Right ankle has loosely place David wrap on it that she had put on. She thinks she twisted a few weeks ago. Has difficulty walking on it. Claims she had x-rays done in [place]. Pt being transferred from [facility]. Report from Julio SANDOVAL. Pt arrived there with naus ea, vomiting blood and abdominal pain. Pt with history of alcohol abuse, HTN and acsites. S tates that she hasnt drank alcohol in 2-3 days. Initial vitals temp 36.9, hr 142, resp 16, bp 198/128, O2 98%, pain 9/10. Pt labs: Mag 0.8, PT 12.7, INR 1.3, H & H 8.2/24.3, ETOH 140. Pt received Mag 2 grams, Alb umin 50 grams X 2, 1 unit PRBC infusing and pt given Loperamide. Protonix drip and Octreoti de drip not started prior to leaving [facility] due to limited IV access. Current Vitals: 159/101, hresp 16, 94% on 3 liters. Pt had possible seizure during ED visit there. REVIEW OF SYSTEMS Positive for: abdominal pain abdominal distention Nausea Vomiting activity niño ge appetite change Fatigue unexpected weight change Dizziness weakness light-head edness Seizures Otherwise negative for the following: Gastrointestinal: Diarrhea constipation blood in stool heartburn trouble swallowing Anal pain arthralgias joint swelling in right ankle which she twisted Constitutional: Fever Chills Diaphoresis HENT: Nosebleeds sore throat mouth sores neck pain neck stiffness Eyes: Eye pain visual disturbance Respiratory: Cough shortness of breath wheezing Cardiovascular: chest pain palpitations leg swelling heart attack Genitourinary: Dysuria Urgency Frequency Hematuria difficulty urinating Musculoskeletal: Myalgias back pain gait problem Skin: Skin color change Wound New skin lesions Neurological: syncope Severe headaches strokes Endocrine: cold intolerance heat intolerance polydipsia. Allergic/Immunologic: severe food allergies immunocompromised state. Hematological: Adenopathy bruise/bleed easily Psychiatric/Behavioral: confusion pronounced nervousness/anxiety hallucinations sev ere depression ALLERGIES: Allergies Allergen Reactions Aspirin Anaphylaxis Pt unable to recall, this information came from [facility] record Lactose Anaphylaxis Pt unable to recall, this information came from [facility] record Ciprofloxacin Other (See Comments) Pt. Unable to recall, this information came from [facility] record Ibuprofen Other (See Comments) Pt. Unable to recall, this information came from [facility] record MEDICATIONS: No current facility-administered medications on file prior to encounter. Current Outpatient Prescriptions on File Prior to Encounter Medication Sig Dispense Refill lactulose (CHRONULAC) 10 GM/15ML solution Take 10 g by mouth 2 (two) times daily. magnesium oxide (MAG-OX) 400 MG tablet Take 1 tablet by mouth 2 (two) times daily. 14 t ablet 0 pantoprazole (PROTONIX) 40 MG tablet Take 40 mg by mouth every morning before breakfast . Vit-Fe Fumarate-FA ( MULTIVITAMIN & MINERALS W IRON/FA) 27-0.8 MG TABS tablet Take 1 tablet by mouth daily. 30 each 0 spironolactone (ALDACTONE) 25 MG tablet Take 100 mg by mouth daily. thiamine (VITAMIN B-1) 100 MG tablet Take 1 tablet by mouth daily. 30 tablet 11 ursodiol (ACTIGALL) 300 MG capsule Take 300 mg by mouth 2 (two) times daily. [DISCONTINUED] furosemide (LASIX) 20 MG tablet Take 2 tablets by mouth 2 (two) times da deann. 30 tablet 0 Current Facility-Administered Medications Medication Dose Route Frequency Provider Last Rate Last Dose magnesium sulfate 1 g/50 mL IVPB 1 g Intravenous Once Paulina Wu MD 50 mL/hr at 1546 1 g at 08/25/18 1546 octreotide (sandoSTATIN) 1,000 mcg in sodium chloride (IV) 0.9 % 250 mL infusion 50 mc g/hr Intravenous Continuous Ajay Spear MD 12.5 mL/hr at 08/25/18 1516 50 mcg/hr at 1516 ondansetron (ZOFRAN) injection 4 mg 4 mg Intravenous Q6H PRN Paulina Wu MD pantoprazole (PROTONIX) 80 mg/250 mL infusion 8 mg/hr Intravenous Continuous Ajay kline MD 25 mL/hr at 08/25/18 1511 8 mg/hr at 08/25/18 1511 potassium chloride 20 mEq in 250 mL IVPB 20 mEq Intravenous Once Paulina Wu MD 125 mL/hr at 08/25/18 1529 20 mEq at 08/25/18 1529 sodium chloride 0.9 % flush 10 mL 10 mL Intravenous Q8H Ajay Spear MD Current Outpatient Prescriptions Medication Sig Dispense Refill furosemide (LASIX) 40 MG tablet Take 40 mg by mouth 2 (two) times daily. amLODIPine (NORVASC) 2.5 MG tablet Take 5 mg by mouth daily. 0 lactulose (CHRONULAC) 10 GM/15ML solution Take 10 g by mouth 2 (two) times daily. magnesium oxide (MAG-OX) 400 MG tablet Take 1 tablet by mouth 2 (two) times daily. 14 t ablet 0 pantoprazole (PROTONIX) 40 MG tablet Take 40 mg by mouth every morning before breakfast . Vit-Fe Fumarate-FA ( MULTIVITAMIN & MINERALS W IRON/FA) 27-0.8 MG TABS tablet Take 1 tablet by mouth daily. 30 each 0 spironolactone (ALDACTONE) 25 MG tablet Take 100 mg by mouth daily. thiamine (VITAMIN B-1) 100 MG tablet Take 1 tablet by mouth daily. 30 tablet 11 ursodiol (ACTIGALL) 300 MG capsule Take 300 mg by mouth 2 (two) times daily. Scheduled Medications sodium chloride 10 mL Intravenous Q8H Continuous Infusions magnesium sulfate 1 g (08/25/18 1546) octreotide 50 mcg/hr (08/25/18 1516) pantoprazole 8 mg/hr (08/25/18 1511) potassium CHLORIDE 20 mEq (08/25/18 1529) PRN Medications ondansetron Past Medical History Diagnosis Date Anemia Hemorrhage of gastrointestinal tract, unspecified Hypertension Liver disease Seizures (HCC) Past Surgical History Procedure Laterality Date BACK SURGERY ESOPHAGOGASTRODUODENOSCOPY N/A 07/30/2011 Procedure: ESOPHAGOGASTRODUODENOSCOPY; Surgeon: Mitchell Stewart IV, MD; Location: [facility]; Service: Gastroenterology; Laterality: N/A; anesthesia assist if available since may be difficult to sedate Hx of tracheostomy No family history on file. Social History Social History Marital status: Single Spouse name: N/A Number of children: N/A Years of education: N/A Occupational History Not on file. Social History Main Topics Smoking status: Former Smoker Smokeless tobacco: Not on file Alcohol use Yes Comment: 6 pack per day Drug use: No Sexual activity: Not on file Other Topics Concern Not on file Social History Narrative No narrative on file History Smoking Status Former Smoker Smokeless Tobacco Not on file History Alcohol Use Yes Comment: 6 pack per day History Drug Use No History Sexual Activity Sexual activity: Not on file Temp: [99.5 F (37.5 C)] 99.5 F (37.5 C) (08/25 1418) BP: (166-183)/(96-112) 183/105 (08/25 1540) Heart Rate: [122-166] 128 (08/25 1540) Resp: [22] 22 (08/25 1418) SpO2: [99 %-100 %] 100 % (08/25 1540) PHYSICAL EXAM Vital Signs: BP (!) 183/105 | Pulse 128 | Temp 99.5 F (37.5 C) (Temporal) | Resp 22 | SpO2 100% Vital signs reviewed. General appearance: Appears somewhat disheveled and subdued affect though had been given a dose of benzodiazepine in the ER. Not in acute distress. Psychiatric: Appears to have subdued mood and affect for given situation. Behavior appear s otherwise to be appropriate. Judgment appears normal for patient. Neurological: Patient is alert and oriented to person, place, time and reason for transfe r as alcohol withdrawal. No focal neurologic deficits. No CN deficits.Somewhat tremulous. HEENT: Head: Normocephalic and Atraumatic. Mouth/Throat: Oropharynx is clear and moist. Eyes: No conjunctiva injection. EOM Intact. PERRL. No scleral icterus. Neck: Neck supple. No tracheal deviation present. No cervical adenopathy. Cardiovascular: Tachycardic rate and rhythm, no distinct murmur heard. Pulmonary/Chest: Clear bilaterally without wheezes. Abdominal: Normal active bowel sounds. Clearly distended but Soft, no palpable mass or hepatosplenomegaly however abdominal distention interferes with evaluation. Nontender to pa lpation. No involuntary guarding or rebound. Musculoskeletal: Moves all limbs. Right ankle shows some degree of joint tenderness. She had David bandage loosely wrapped around it. Her right lower extremity feels much warmer than her left. Also appears to be some old ecchymosis present. Not overtly cellulitis but concern also in place regarding possible joint injury. No pedal edema. Skin: Skin is warm and dry. No rash noted. No erythema. No pallor. DATA Labs: CBC: Lab Results Component Value Date WBC 6.47 08/25/2018 RBC 2.80 (L) 08/25/2018 HGB 8.8 (L) 08/25/2018 HCT 26.0 (L) 08/25/2018 MCV 92.9 08/25/2018 MCH 31.5 08/25/2018 MCHC 33.9 08/25/2018 RDW 50.8 08/25/2018 PLT 49 (LL) 08/25/2018 MPV 7.7 08/25/2018 DIFFTYPE AUTOMATED 08/25/2018 CMP: Lab Results Component Value Date NA 136 08/25/2018 K 3.2 (L) 08/25/2018 CL 105 08/25/2018 CO2 17 (L) 08/25/2018 ANIONGAP 17 08/25/2018 GLUF 74 08/25/2018 BUN 8 08/25/2018 CREATININE 0.57 08/25/2018 BCR 14 08/25/2018 CA 7.3 (L) 08/25/2018 PROT 5.9 (L) 08/25/2018 ALB 2.4 (L) 08/25/2018 GLOB 3.5 08/25/2018 BILITOT 1.2 08/25/2018 ALP 95 08/25/2018 AST 34 08/25/2018 ALT <7 (L) 08/25/2018 EGFR >60 08/25/2018 PT/INR: Lab Results Component Value Date INR 1.2 08/25/2018 PTT: Lab Results Component Value Date APTT 32 08/25/2018 [APTT} Lipase: Lab Results Component Value Date LIPASE 145 04/09/2016 No results found for: CRP, ESR Results for SHAILA SON ( ) as of 08/25/2018 16:05 Ref. Range 08/25/2018 14:07 AMMONIA Latest Ref Range: <33 umol/L 32 Results for SHAILA SON ( ) as of 08/25/2018 16:05 Ref. Range 08/25/2018 13:45 ALCOHOL,ETHYL Latest Ref Range: <10 mg/dL 59 (H) Diagnostic imaging: No new imaging studies available Data Review: Reviewed previous pertinent records in her electronic chart [facility] Service: Gastroenterology ENDOSCOPY SUITE PROCEDURE NOTE Esophagogastroduodenoscopy Procedure: EGD Indications: Limited hematemesis, GI bleeding .... Impression: 1. Diffuse gastropathy, few antral erosions. No gastric varices. 2. No significant esophageal varices. 3. No old or new blood in stomach. .... AMA STEWART MD 07/30/2011 PROBLEM LIST Principal Problem: Hemorrhage of gastrointestinal tract, unspecified Active Problems: Alcohol withdrawal Thrombocytopenia, unspecified Anemia Seizure disorder, secondary Hypomagnesemia Alcohol abuse, continuous Electrolyte and fluid disorders not elsewhere classified Alcoholic cirrhosis of liver with ascites (HCC) Portal hypertension (HCC) ASSESSMENT & PLAN Coffee-ground hematemesis Alcohol associated cirrhosis Ongoing alcoholism Tachycardia Hypertensive Probable seizure Ascites Thrombocytopenia History of hepatic encephalopathy She did not have varices in 2011 when I performed EGD for similar type picture. I suspect t hat her current presentation will likely have limited hematemesis related to portal gastropa thy versus even Eflecia-Velasquez tear. At some point obviously varices must be looked for to ma ke sure there has been no recurrence. Her tachycardia and hypertensive presentation most likely related to alcohol withdrawal as she claims. This needs to be closely managed. Ascites reportedly did not show any evidence of SBP (spontaneous bacterial peritonitis). Sh ould be on SBP (spontaneous bacterial peritonitis) prophylaxis due to her acute decompensati on and concern of GI bleeding. Recommendations 1. Continue to monitor H and H with transfusion if hemoglobin less than 7 unless hemodynami bud indicated. 2. Continue octreotide 50 g per hour infusion. 3. Pantoprazole could change to 40 mg IV twice daily due to shortage on IV pantoprazole. 3. Continue with SBP (spontaneous bacterial peritonitis) prophylaxis with ceftriaxone. 4. Close management of alcohol withdrawal syndrome. 5. Consider EGD tomorrow afternoon if not in overt withdrawal. The procedure was discussed with patient in the emergency department who voiced understanding and has undergone this bef ore. 6. Outpatient medication list describes ursodiol and will need to inquire at later time as to why she is on this. 7. May need to ensure that she has had x-ray of her right ankle or at least be reevaluated by her hospitalist attending once takes over care of patient. 8. Agree with resuming her outpatient lactulose though differentiating alcohol withdrawal f rom hepatic encephalopathy may prove to be difficult. 9. Likely no point in giving her rifaximin as tried previously since I doubt her insurance will cover it or that she will end up actually taking it. 10. Keep npo for now in anticipation of possible EGD ideally tomorrow. Thank you for allowing me to participate in the care of this patient. I will continue to follow with you. Tod Stewart IV, M.D. [facility] Gastroenterology 08/25/2018 This note was dictated using [employer] voice recognition software. Document was reviewed at ti me of dictation but [id number] errors may be present. Please call with any questions or c larifications. documented in th is encounter ED Notes Conversion Transaction, Provider Unknown - 08/25/2018 1:37 PM PDTFormatting of this note m ight be different from the original. ED Notes by Jose Roach RN at 08/25/181336 Author: Jose Roach RN Service: (none) Author Type: Registered Nurse Filed: 08/25/18 1353 Date of Service: 08/25/181336 Status: Signed Recovery Unit Operator: Jose Roach RN (Registered Nurse) Pt transferred from [place] ER with low H+H from GI bleed, sequela to ETOH. Pt has weak voice but is A+Ox 3. athes on, Ajay Rice MD - 08/25/2018 1:35 PM PDT ED Provider Notes by Ajay Spear MD at 08/25/18 4119 Author: Ajay Spear MD Service: Emergency Department Author Type: Physician Filed: 08/25/18 4784 Date of Service: 08/25/181334 Status: Signed Recovery Unit Operator: Ajay Spear MD (Physician) Procedure Orders: 1. Critical Care [[id number]] ordered by Paulina Wu MD at 08/25/18 1700 [facility] Department of Emergency Medicine Pre-arrival Provider: Another ED Pertinent History and Concerns: For ground emesis and epigastric pain, HGB 8.2. Large asci tis, concern for SBP but fluid negative. Given ablumin, had a seizure and had maroon emisis . Alcohol withdrawel possible. Protonix bolus given and starting drip. Also octreotide dr ip starting. GI aware of the patient. Patient stopped seizing and I recommended they give her some benzos. Blood pressure has remained stable but persistently tachycardic. CT of th e abdomen was negative for acute process but large amount of ascites. (08/25/18 0904 : Myke Ornelas, DO) 1:35 PM 08/25/2018 History of Present Illness Patient Identification Shaila Son is a 48 y.o. female. Patient information was obtained from patient. History/Exam limitations: none. Patient presented to the Emergency Department by: Ambulance Chief Complaint Chief Complaint Patient presents with Hematemesis Alcohol Problem The patient with a history of alcoholism presents with hematemesis. Onset of symptoms was 24 hours ago, with an ongoing course since that time. The patient describes these symptoms a s "vomiting blood" and rated as moderate. No modifying factors are reported. Was seen at [facility] for the same and was given a unit of blood and had ascites fluid drawn. Reportedl y had seizures there. Patient also complains of seizures, vomiting, diarrhea, and abdominal pain. Patient denies bloody stools, fever, or any other symptoms at this time. Care [employer]IST[employer] con sisted of one unit of blood, with moderate relief. Past Medical History Diagnosis Date Anemia Hemorrhage of gastrointestinal tract, unspecified Hypertension Liver disease Seizures (HCC) Past Surgical History Procedure Laterality Date BACK SURGERY ESOPHAGOGASTRODUODENOSCOPY N/A 07/30/2011 Procedure: ESOPHAGOGASTRODUODENOSCOPY; Surgeon: Mitchell Stewart IV, MD; Location: [facility]; Service: Gastroenterology; Laterality: N/A; anesthesia assist if available since may be difficult to sedate Hx of tracheostomy Prior to Admission medications Medication Sig Start Date End Date Taking? Authorizing Provider furosemide (LASIX) 20 MG tablet Take 2 tablets by mouth 2 (two) times daily. 04/17/16 04/17/17 Claude Dominique MD lactulose (CHRONULAC) 10 GM/15ML solution Take 10 g by mouth 2 (two) times daily. Histor ical Provider magnesium oxide (MAG-OX) 400 MG tablet Take 1 tablet by mouth 2 (two) times daily. 02/13/14 10/05/14 Micki Redding MD pantoprazole (PROTONIX) 40 MG tablet Take 40 mg by mouth every morning before breakfast. Historical Provider Vit-Fe Fumarate-FA ( MULTIVITAMIN & MINERALS W IRON/FA) 27-0.8 MG TABS tab let Take 1 tablet by mouth daily. 03/28/13 Precious Miller MD spironolactone (ALDACTONE) 25 MG tablet Take 100 mg by mouth daily. Historical Provider thiamine (VITAMIN B-1) 100 MG tablet Take 1 tablet by mouth daily. 10/07/14 10/07/15 Precious flores MD ursodiol (ACTIGALL) 300 MG capsule Take 300 mg by mouth 2 (two) times daily. Historical Provider Allergies Allergen Reactions Aspirin Anaphylaxis Pt unable to recall, this information came from [facility] record Lactose Anaphylaxis Pt unable to recall, this information came from [facility] record Ciprofloxacin Other (See Comments) Pt. Unable to recall, this information came from [facility] record Ibuprofen Other (See Comments) Pt. Unable to recall, this information came from [facility] record Social History Social History Marital status: Single Spouse name: N/A Number of children: N/A Years of education: N/A Occupational History Not on file. Social History Main Topics Smoking status: Former Smoker Smokeless tobacco: Not on file Alcohol use Yes Comment: 6 pack per day Drug use: No Sexual activity: Not on file Other Topics Concern Not on file Social History Narrative No narrative on file No family history on file. Review of Systems Constitutional: Negative for fever, chills Eyes: Negative for vision changes Nose: Negative for congestion, nosebleeds Throat: Negative for sore throat CV/Resp: Negative for chest pain, [id number], cough GI: Positive for hematemesis Positive for abdominal pain Positive for vomiting Positive for diarrhea Negative for bloody stools : Negative for urinary problems Musculoskeletal: Negative for back pain, joint pain Skin: Negative for rash Neuro/Psych: Positive for seizures Negative for headache Endo/heme/Lymph: Negative for swollen lymph nodes, easy bruising All other systems reviewed and negative except as noted. Physical Exam BP (!) 166/104 (BP Location: Left upper arm) | Pulse 122 | Temp 99.5 F (37.5 C) (Temp oral) | Resp 22 | SpO2 99% Vitals Interpretation: hypertensive, tachycardic, tachypneic Pulse Oximetry interpretation: Normal General: Alert, NAD Eyes: Normal inspection, EOMI, PERRL ENT: Normal pharynx Mouth: Lower lip swelling and abrasion Neck: Supple, no meningismus CV: Tachycardic, regular rhythm. Normal heart tones. Respiratory: No respiratory distress. Lungs clear to auscultation bilaterally Abdomen: Soft, mild abdominal distension and generalized tenderness. No guarding or rebou nd : Deferred Rectal: Deferred Back: Normal inspection, normal ROM Extremities: RLE in walking boot, normal ROM, no significant lower extremity edema Skin: Warm, dry. No rash Neuro: No gross focal deficits. Motor and sensory grossly intact Psych: Flat affect Medical Decision Making and Emergency Department Course ED Department Course 1:35 PM. Patient presents with vomiting, diarrhea, hematemesis, alcohol withdrawal, and rep orted seizure activity. Symptoms began 24 hours ago with nausea, vomiting, and diarrhea. She reports some generalized abdominal pain. Seen at [facility] where she was evaluated. She had 6L of ascites fluid removed from her abdomen. She also was noted to have hematemesis an d a period of decreased responsiveness. She received one unit of blood and was also given ma gnesium and IV albumin with Protonix and octreotide ordered. She is alert and currently hemo dynamically stable. She has a DNR and comfort measures on her POLST form, but when questione d she reports desire for full treatment including resuscitation. Labs from outside facility showed a HGB of 8.2, HCT of 24.3, and PLT of 61. WBC was 8.8. BMP showed sodium of 128, pot assium of 3.3, and calcium of 7.1; otherwise normal. LFTs unremarkable except albumin was 1. 5. INR was 1.3 and troponin was 0.01. Magnesium reportedly was at 0.8 and she received 2g of magnesium sulfate. Will check labs for improvement and monitor. She will need admission. Qu estion whether she is stable for the floor versus ICU. 2:01 PM Lab called stating that PLT is critically low at 49. 2:19 PM Cardiac panel shows low RBC at 2.80, low H/H at 8.8 and 26.0, low PLT at 49, low po tassium at 3.2, low CO2 at 17, low calcium at 7.3, low total protein at 5.9, low albumin at 2.4, low A/G at 0.7, and low ALT at <7. 2:19 PM Alcohol is elevated at 59. Magnesium is low at 1.5. Troponin is elevated at 0.069. 2:24 PM Spoke with RAMÓN Everett orthodontist, who is familiar with the pt. Anticipates likely s cope tomorrow as long as she remains stable. Agrees with plan for admission to Hospitalist shanae tolentino.. 2:[address] Wu, Hospitalist, who accepts the pt for admission. Requests that I give Rocephin. 2:46 PM Ammonia is normal. 3:04 PM Pt is becoming tachycardic. Heart rate is in the 150's. BP is elevated which I susp ect is due to withdrawals. Will order Ativan and monitor closely. 3:20 PM Pt appears calm. Heart rate down to 111. Tachycardia likely due to ETOH withdrawal . 3:[address] Stewart is evaluating the pt. Records Reviewed Old medical records. Nursing notes. Previous ED visits for similar and unrelated complaints. 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 -- [id number] Testing [place] [facility] [place] [address];[place] [address] Ammonia level [[id number]] Collected: 08/25/18 1407 Order Status: Completed Specimen: Blood Updated: 08/25/18 1441 AMMONIA 32 <33 umol/L Troponin I, Lab [[id number]] (Abnormal) Collected: 08/25/18 1345 Order Status: Completed Specimen: Blood Updated: 08/25/18 1414 TROPONIN I 0.069 (H) 0.00 - 0.04 ng/mL Magnesium [[id number]] (Abnormal) Collected: 08/25/18 1345 Order Status: Completed Specimen: Blood Updated: 08/25/18 1414 MAGNESIUM 1.5 (L) 1.7 - 2.4 mg/dL Blood alcohol level (ethanol) [[id number]] (Abnormal) Collected: 08/25/181344 Order Status: Completed Updated: 08/25/181413 ALCOHOL,ETHYL 59 (H) <10 mg/dL Cardiac Panel [[id number]] (Abnormal) Collected: 08/25/181344 Order Status: Completed Updated: 08/25/181413 WBC 6.47 3.80 - 11.00 K/uL RBC 2.80 (L) 3.70 - 5.10 M/uL HGB 8.8 (L) 11.3 - 15.5 g/dL HCT 26.0 (L) 34.0 - 46.0 % MCV 92.9 80.0 - 100.0 fl MCH 31.5 27.0 - 34.0 pg MCHC 33.9 32.0 - 35.5 g/dL RDW SD 50.8 37 - 53 fl PLT 49 (LL) 150 - 400 K/uL MPV 7.7 fl DIFF TYPE AUTOMATED NEUTROPHILS 87.14 % LYMPHOCYTES 4.24 % MONOCYTES 7.57 % EOSINOPHILS 0.06 % BASOPHILS 0.99 % NEUTROPHILS ABS 5.64 1.90 - 7.40 K/uL LYMPHOCYTES ABS 0.27 (L) 1.00 - 3.90 K/uL MONOCYTES ABS 0.49 0.00 - 0.80 K/uL EOSINOPHILS ABS 0.00 0.00 - 0.50 K/uL BASOPHILS ABS 0.06 0.00 - 0.10 K/uL MORPHOLOGY RBC AND PLT MORPHOLOGY APPEAR NORMAL Diff Comment SLIDE SCANNED, AGREES WITH AUTOMATED RESULTS. SODIUM 136 135 - 145 mmol/L POTASSIUM 3.2 (L) 3.5 - 4.9 mmol/L CHLORIDE 105 99 - 109 mmol/L CO2 17 (L) 23 - 32 mmol/L ANION GAP AGAP 17 5 - 20 mmol/L GLUCOSE 74 65 - 99 mg/dL BUN 8 8 - 25 mg/dL CREATININE 0.57 0.50 - 1.00 mg/dL BUN/CREAT 14 CALCIUM 7.3 (L) 8.5 - 10.5 mg/dL TOTAL PROTEIN 5.9 (L) 6.3 - 8.2 g/dL Albumin 2.4 (L) 3.6 - 5.0 g/dL GLOBULIN 3.5 1.3 - 4.9 g/dL A/G 0.7 (L) 1.0 - 2.4 TBIL 1.2 0.1 - 1.5 mg/dL ALK PHOS 95 35 - 115 U/L AST 34 10 - 45 U/L ALT <7 (L) 10 - 65 U/L EGFR >60 >60 mL/min/1.73m2 CPK 84 30 - 240 U/L INR 1.2 APTT 32 23 - 32 seconds MMB 1.3 0.5 - 3.6 ng/mL CK-MB Index 1.5 Radiology and EKG Evaluation Imaging Results None EKG 1500 Rate- 160 Rhythm- sinus tachycardia Normal P waves, normal NH interval, normal QRS, nonspecific ST and T changes EKG viewed independently and interpreted by me contemporaneously: Ajay Spear MD ED Diagnoses Final diagnoses Hematemesis with nausea Alcohol withdrawal syndrome with complication (HCC) Ascites due to alcoholic cirrhosis (HCC) Non-intractable vomiting with nausea, unspecified vomiting type Alcoholic cirrhosis of liver with ascites (HCC) Thrombocytopenia (HCC) Disposition: ED Disposition ED Disposition Condition Comment Admit/Observation Bed request special needs: active diarrhea Bed request special needs: other (see comment) comment: alcohol withdrawl precautions Diagnosis?: GI bleed, vomiting, alcohol withdrawl Follow-up Information None Discharge Medications: Current Discharge Medication List Procedures Additional Documentation Critical Care Performed by: AJAY SPEAR Authorized by: AJAY SPEAR Critical care provider statement: Critical care time (minutes): 35 Critical care time was exclusive of: Separately billable procedures and treating other p atients Critical care was necessary to treat or prevent imminent or life-threatening deterioratio n of the following conditions: Hepatic failure and circulatory failure Critical care was time spent personally by me on the following activities: Development o f treatment plan with patient or surrogate, discussions with consultants, evaluation of mayco ent's response to treatment, examination of patient, obtaining history from patient or surro gate, ordering and performing treatments and interventions, ordering and review of laborator y studies, pulse oximetry, re-evaluation of patient's condition and review of old charts Attending Provider Note: Ajay Mane MD personally performed the services described in this documentation, as scribed by Tom Fierro in my presence, and it is both accurate a nd complete. Chart Reviewed and Completed: 08/25/2018 5:46 PM Scribe: Mary Kay Bone, scribing for and in the presence of Ajay Spear MD. Signed by: Mary Kay Wilder 08/25/2018 5:46 PM Ajay Spear MD 08/25/187 onversion Transact ion, Provider Unknown - 08/25/2018 1:26 PM PDTFormatting of this note might be different fr om the original. ED Notes by Alice Murrell RN at 08/25/18 1326 Author: Alice Murrell RN Service: (none) Author Type: Registered Nurse Filed: 08/25/181325 Date of Service: 08/25/181325 Status: Signed Recovery Unit Operator: Alice Murrell RN (Registered Nurse) Bed: 05 Expected date: Expected time: Means of arrival: Comments: Luis E chiu. Alice Murrell RN 08/25/18 1326 onver miriam Transaction, Provider Unknown - 08/25/2018 1:00 PM PDT ED Triage Notes by Alice Murrell RN at 08/25/18 1300 Author: Alice Murrell RN Service: (none) Author Type: Registered Nurse Filed: 08/25/18 1320 Date of Service: 08/25/18 1300 Status: Signed Recovery Unit Operator: Alice Murrell RN (Registered Nurse) Pt being transferred from [facility]. Report from Julio SANDOVAL. Pt arrived there with naus ea, vomiting blood and abdominal pain. Pt with history of alcohol abuse, HTN and acsites. S tates that she hasnt drank alcohol in 2-3 days. Initial vitals temp 36.9, hr 142, resp 16, bp 198/128, O2 98%, pain 9/10. Pt labs: Mag 0.8, PT 12.7, INR 1.3, H & H 8.2/24.3, ETOH 140. Pt received Mag 2 grams, Alb umin 50 grams X 2, 1 unit PRBC infusing and pt given Loperamide. Protonix drip and Octreoti de drip not started prior to leaving [facility] due to limited IV access. Current Vitals: 159/101, hresp 16, 94% on 3 liters. Pt had possible seizure during ED visit there. docume nted in this encounter Miscellaneous Notes Plan of Care - Conversion Transaction, Provider Unknown - 09/05/2018 12:29 AM PDT Plan of Care by Alba Boss RN at 09/05/1828 Author: Alba Boss RN Service: (none) Author Type: Registered Nurse Filed: 09/05/1828 Date of Service: 09/05/1828 Status: Signed Recovery Unit Operator: Alba Boss RN (Registered Nurse) Problem: Risk for Falls Goal: No falls during hospitalization Patient will not fall during hospitalization. Outcome: Progressing Bed in lowest position, bed alarm on. Room door open near nursing station. lan o f Care - Conversion Transaction, Provider Unknown - 09/04/2018 3:28 PM PDTFormatting of thi s note might be different from the original. Plan of Care by Philipp Sargent RN at 09/04/18 1528 Author: Philipp Sargent RN Service: (none) Author Type: Registered Nurse Filed: 09/04/18 1528 Date of Service: 09/04/18 1528 Status: Signed Recovery Unit Operator: Philipp Sargent RN (Registered Nurse) Elimination Elimination patterns are normal or improving Progressing Pain Patient's pain/discomfort is manageable Progressing Psychosocial Needs Demonstrates ability to cope with hospitalization/illness Progressing Safety Patient will be injury free during hospitalization Progressing lan o f Care - Conversion Transaction, Provider Unknown - 09/04/2018 5:25 AM PDTFormatting of thi s note might be different from the original. Plan of Care by Chadwick Murdock RN at 09/04/18 0525 Author: Chadwick Murdock RN Service: (none) Author Type: Registered Nurse Filed: 09/04/18524 Date of Service: 09/04/18524 Status: Signed Recovery Unit Operator: Chadwick Murdock RN (Registered Nurse) Problem: Pain Goal: Patient's pain/discomfort is manageable Assess and monitor patient's pain using appropriate pain scale. Collaborate with interdisci plinary team and initiate plan and interventions as ordered. Re-assess patient's pain level approximately 1-2 hours after pain management intervention. Premedicate as needed. Outcome: Progressing No c/o pain. Chadwick Murdock RN. lan o f Care - Conversion Transaction, Provider Unknown - 09/03/2018 5:47 PM PDTFormatting of thi s note might be different from the original. Plan of Care by Rosalinda Sanz RN at 09/03/181746 Author: Rosalinda Sanz RN Service: (none) Author Type: Registered Nurse Filed: 09/03/181746 Date of Service: 09/03/181746 Status: Signed Recovery Unit Operator: Rosalinda Sanz RN (Registered Nurse) Problem: Elimination Goal: Elimination patterns are normal or improving Outcome: Adequate for Discharge Pt had multiple BM's this shift with no bloody reported. lan o f Care - Conversion Transaction, Provider Unknown - 09/03/2018 3:11 AM PDTFormatting of thi s note might be different from the original. Plan of Care by Ashley Esposito RN at 09/03/18310 Author: Ashley Esposito RN Service: (none) Author Type: Registered Nurse Filed: 09/03/18310 Date of Service: 09/03/18310 Status: Signed Recovery Unit Operator: Ashley Esposito RN (Registered Nurse) Problem: Safety Goal: Patient will be injury free during hospitalization Assess and monitor vitals signs, neurological status including level of consciousness and o rientation. Assess patient's risk for falls and implement fall prevention plan of care and i nterventions per hospital policy. Ensure arm band on, uncluttered walking paths in room, adequate room lighting, call light a nd overbed table within reach, bed in low position, wheels locked, side rails up per policy, and non-skid footwear provided. Outcome: Progressing Patient arm band is on, walking path uncluttered, call light and overbed table in reach, be d in lowest position, wheels locked, and non skid footwear provided. lan o f Care - Conversion Transaction, Provider Unknown - 09/02/2018 2:33 PM PDTFormatting of thi s note might be different from the original. Plan of Care by Rosalinda Sanz RN at 09/02/181432 Author: Rosalinda Sanz RN Service: (none) Author Type: Registered Nurse Filed: 09/02/181432 Date of Service: 09/02/181432 Status: Signed Recovery Unit Operator: Rosalinda Sanz RN (Registered Nurse) Problem: Elimination Goal: Elimination patterns are normal or improving Outcome: Progressing No blood noted in stools this shift. lan o f Care - Conversion Transaction, Provider Unknown - 09/02/2018 4:42 AM PDTFormatting of thi s note might be different from the original. Plan of Care by Ashley Esposito RN at 09/02/18441 Author: Ashley Esposito RN Service: (none) Author Type: Registered Nurse Filed: 09/02/18441 Date of Service: 09/02/18441 Status: Signed Recovery Unit Operator: Ashley Esposito RN (Registered Nurse) Problem: Safety Goal: Patient will be injury free during hospitalization Assess and monitor vitals signs, neurological status including level of consciousness and o rientation. Assess patient's risk for falls and implement fall prevention plan of care and i nterventions per hospital policy. Ensure arm band on, uncluttered walking paths in room, adequate room lighting, call light a nd overbed table within reach, bed in low position, wheels locked, side rails up per policy, and non-skid footwear provided. Outcome: Progressing Patient arm band is on, walking path uncluttered, call light and overbed table in reach, be d in lowest position, wheels locked, and non skid footwear provided. lan o f Care - Conversion Transaction, Provider Unknown - 09/01/2018 5:08 PM PDTFormatting of thi s note might be different from the original. Plan of Care by Steve Mancuso RN at 09/01/181707 Author: Steve Mancuso RN Service: (none) Author Type: Registered Nurse Filed: 09/01/181707 Date of Service: 09/01/181707 Status: Signed Recovery Unit Operator: Steve Mancuso RN (Registered Nurse) Problem: Safety Goal: Patient will be injury free during hospitalization Assess and monitor vitals signs, neurological status including level of consciousness and o rientation. Assess patient's risk for falls and implement fall prevention plan of care and i nterventions per hospital policy. Ensure arm band on, uncluttered walking paths in room, adequate room lighting, call light a nd overbed table within reach, bed in low position, wheels locked, side rails up per policy, and non-skid footwear provided. Outcome: Progressing Pt free of falls or injury Problem: Fluid and Electrolyte Imbalance Goal: Fluid and electrolyte balance are achieved/maintained Assess and monitor vital signs (orthostatic vitals if applicable), fluid intake and output, urine color, labs, skin turgor, mucous membranes, jugular venous distention, edema, circumf erence of edematous extremities and abdominal girth, respiratory status, and mental status. Monitor for signs and symptoms of hypovolemia (tachycardia, rapid breathing, decreased urin e output, postural hypotension, confusion, syncope). Monitor for signs and symptoms of hype rvolemia (strong rapid pulse, shortness of breath, difficulty breathing lying down, crackles heard in lung montoya, edema). Collaborate with interdisciplinary team and initiate plan and interventions as ordered. Outcome: Progressing Pt electrolytes within limits lan o f Care - Conversion Transaction, Provider Unknown - 09/01/2018 5:03 AM PDTFormatting of thi s note might be different from the original. Plan of Care by Ashley Esposito RN at 09/01/18502 Author: Ashley Esposito RN Service: (none) Author Type: Registered Nurse Filed: 09/01/18502 Date of Service: 09/01/18502 Status: Signed Recovery Unit Operator: Ashley Esposito RN (Registered Nurse) Problem: Safety Goal: Patient will be injury free during hospitalization Assess and monitor vitals signs, neurological status including level of consciousness and o rientation. Assess patient's risk for falls and implement fall prevention plan of care and i nterventions per hospital policy. Ensure arm band on, uncluttered walking paths in room, adequate room lighting, call light a nd overbed table within reach, bed in low position, wheels locked, side rails up per policy, and non-skid footwear provided. Outcome: Progressing Patient arm band is on, walking path uncluttered, call light and overbed table in reach, be d in lowest position, wheels locked, and non skid footwear provided. lan o f Care - Conversion Transaction, Provider Unknown - 08/31/2018 5:43 PM PDTFormatting of thi s note might be different from the original. Plan of Care by Steve Mancuso RN at 08/31/181742 Author: Steve Mancuso RN Service: (none) Author Type: Registered Nurse Filed: 08/31/181742 Date of Service: 08/31/181742 Status: Signed Recovery Unit Operator: Steve Mancuso RN (Registered Nurse) Problem: Safety Goal: Patient will be injury free during hospitalization Assess and monitor vitals signs, neurological status including level of consciousness and o rientation. Assess patient's risk for falls and implement fall prevention plan of care and i nterventions per hospital policy. Ensure arm band on, uncluttered walking paths in room, adequate room lighting, call light a nd overbed table within reach, bed in low position, wheels locked, side rails up per policy, and non-skid footwear provided. Outcome: Progressing Pt free of falls or injury Problem: Fluid and Electrolyte Imbalance Goal: Fluid and electrolyte balance are achieved/maintained Assess and monitor vital signs (orthostatic vitals if applicable), fluid intake and output, urine color, labs, skin turgor, mucous membranes, jugular venous distention, edema, circumf erence of edematous extremities and abdominal girth, respiratory status, and mental status. Monitor for signs and symptoms of hypovolemia (tachycardia, rapid breathing, decreased urin e output, postural hypotension, confusion, syncope). Monitor for signs and symptoms of hype rvolemia (strong rapid pulse, shortness of breath, difficulty breathing lying down, crackles heard in lung montoya, edema). Collaborate with interdisciplinary team and initiate plan and interventions as ordered. Outcome: Progressing Electrolytes replaced lan o f Care - Conversion Transaction, Provider Unknown - 08/31/2018 1:31 AM PDTFormatting of thi s note might be different from the original. Plan of Care by Ahsan Solis RN at 08/31/18130 Author: Ahsan Solis RN Service: (none) Author Type: Registered Nurse Filed: 08/31/18130 Date of Service: 08/31/18130 Status: Signed Recovery Unit Operator: Ahsan Solis RN (Registered Nurse) Problem: Elimination Goal: Elimination patterns are normal or improving Outcome: Progressing Pt has active bowel tones. No signs of emma bleeding in stool. Ahsan Solis RN lan o f Care - Conversion Transaction, Provider Unknown - 08/30/2018 5:19 PM PDTFormatting of thi s note might be different from the original. Plan of Care by Steve Mancuso RN at 08/30/181718 Author: Steve Mancuso RN Service: (none) Author Type: Registered Nurse Filed: 08/30/181718 Date of Service: 08/30/181718 Status: Signed Recovery Unit Operator: Steve Mancuso RN (Registered Nurse) Problem: Safety Goal: Patient will be injury free during hospitalization Assess and monitor vitals signs, neurological status including level of consciousness and o rientation. Assess patient's risk for falls and implement fall prevention plan of care and i nterventions per hospital policy. Ensure arm band on, uncluttered walking paths in room, adequate room lighting, call light a nd overbed table within reach, bed in low position, wheels locked, side rails up per policy, and non-skid footwear provided. Outcome: Progressing Pt free of falls or injury lan o f Care - Conversion Transaction, Provider Unknown - 08/30/2018 12:45 AM PDTFormatting of thi s note might be different from the original. Plan of Care by Ahsan Solis RN at 08/30/1844 Author: Ahsan Solis RN Service: (none) Author Type: Registered Nurse Filed: 08/30/1844 Date of Service: 08/30/1844 Status: Signed Recovery Unit Operator: Ahsan Solis RN (Registered Nurse) Problem: Discharge Barriers Goal: Patient's discharge needs are met Collaborate with interdisciplinary team and initiate plans and interventions as needed. Outcome: Progressing Pt bp improving. Ahsan Solis RN iscel laneous - Conversion Transaction, Provider Unknown - 08/29/2018 3:10 PM PDTFormatting of th is note might be different from the original. Treatment Plan by Erica Venegas PT at 08/29/18 1510 Author: Erica Venegas PT Service: (none) Author Type: Physical Therapist Filed: 08/29/18 1623 Date of Service: 08/29/181509 Status: Signed Recovery Unit Operator: Erica Venegas PT (Physical Therapist) PHYSICAL THERAPY EVALUATION PT Received On: 08/29/18 Reason for Treatment: Deconditioning, LE fracture (GIB, CIWA, recent R tib/fib fx) Requires PT Follow Up: Yes PT Eval/Reassessment Date: 08/29/18 Recommendations: SNF Equipment Recommended: (TBD) Barriers to Discharge: Physical Deficits Impacting Functional Burke, Self-care Defic its Impacting Functional Burke, Lack of Family Support/Training (limited help at home - per pt, is at home alone during day) Recommendation Comments: Pt is very deconditioned and needs up to modA at this time to mobi lize safely. She does not have help during daytime, otherwise she states that her sister hel ps her mostly; pt expresses that she does not feel that she has adequate assistance at home. She may benefit from placement in subacute rehab to increase strength, independence and act ivity tolerance prior to return home - which very likely could be until pt is able to WB aga in on R LE. If pt is unable to be placed in subacute rehab, [facility] may be a backup plan with HH PT/OT to follow. Plan Treatment/Interventions: Balance training, Bed mobility training, Family training, Gait tra ining, Stair training, Therapeutic exercise, Transfer training, W/C training PT Frequency: 3-5x/wk, Once per day Care Duration (# of days): 7 # of days Summary Comments: Pt is a 48 y.o. female who presents to [facility] for hematemesis and admitted for GIB and alcohol withdrawal. Pt recently had a fall which resulted in R tib/fib fx - per pt, was about 1 and a 1/2 months ago and she is to be NWB R LE with CAM boot; she has been getting b y since LE injury with assistance from family for all mobility/daily cares - at w/c level si nce injury, given NWB precautions. Upon PT arrival in pt's room, pt in bed and agreeable to therapy. She is very lethargic, but with extra time, she responds appropriately to questions /commands. History obtained from pt, however, unsure of accuracy of info provided - may need to be clarified at next session. She denies reports of pain during session. She exhibits si gnificant deconditioning throughout all extremities. She requires up to modA to mobilize OOB to recliner and maintains precautions well. Pt limited by marked fatigue, deconditioning an d WB status. She likely would benefit from continued strengthening and mobility training whi le in acute setting to increase activity tolerance, independence and safety. Pt ended sessio n seated in recliner- all needs met/within reach when PT left. Precautions LE Precaution(s): RLE Precautions/WB RLE: Non weight bearing (CAM boot (per pt - no formal orders in chart)) Other Precautions: fall risk, CIWA Cognition Overall Cognitive Status: Impaired Orientation Level: Oriented, Disoriented Oriented: To person, To place Disoriented: To time, To situation Assessment of Patient Status Assessment of Patient Status: Decreased functional mobility, Decreased ADL status, Decreas ed endurance, Precautions Prognosis: Should progress with skilled therapy intervention Home Environment Type of Home: Home one story Home Exterior Layout: Entry steps none Home Interior Layout: Lives on main level with bedroom/bathroom Bathroom Shower/Tub: Shower unit with threshold Bathroom Toilet: Standard Bathroom Equipment: Built-in shower seat Bathroom Accessibility: Accessible via wheelchair Home Equipment: Wheelchair-manual Additional Comments: Unsure of accuracy of information provided - may need to be clarified upon next session as able. Prior Function Level of Burke: Assist with functional mobility, Assist with ADLs, Assist with IADLs (has needed assistance since she injured her R LE) Falls in Past Year: Yes (Pt had a fall that led to R tib/fib fxs) Lives With: Friend Comments: Pt has been receiving help from her sister since she injured her R LE, which pt s tates was about 1.5 months prior to this admit - per pt she has to be NWB. Pt states that he r sister is not always available to assist her when needed and is often left home alone - sh e does not feel that she has the needed help at home. RUE Assessment: (global deconditioning) LUE Assessment: (global deconditioning) RLE Assessment: (global deconditioning, hx recent tib/fib fx) LLE Assessment: (global deconditioning) Sensation Additional Comments: Pt denies reports of pain when asked. Vision Current Vision: Reading glasses FUNCTIONAL MOBILITY Bed Mobility Supine to Sit: Mod assist (BLEs OOB or trunk to upright) Transfers Sit to/from Stand: Moderate assist (to arise OR lower) Bed to/from Chair: Moderate assist (to arise OR lower) Stand Pivot Transfers: Moderate assist (to arise OR lower) Ambulation Weight Bearing Status: NWB RLE Maximal Ambulation Distance (feet): 0 Total Ambulation Distance (feet): 0 Ambulation Assistance: Unable to assess (Comment), Safety concerns (0) Distance limited by?: Patient's ability BALANCE Balance: Yes Static Sitting Balance Static Sitting-Balance Support: Right upper extremity support, Left upper extremity support , Feet supported Static Sitting-Level of Assistance: Standby assist, Attains midline, Maintains midline Activity Tolerance: Patient limited by fatigue Nurse Made Aware: Yes Safety Devices in Place: (Call light in reach, chair alarmed) Restraints Initially in Place: No The patient demonstrated no indication of pain during therapy session. Education Completed: Education Topics: [x] Rationale for PT [x] PT POC [x] DC planning [x] Precautions [] Exercises [x] Bed mobility [x] Transfer training with hand placement [] Gait training [] Stair training [x] Use of gait belt [] Other Completed with: [x] Patient [] Spouse [] Significant other [] Family [] C aregiver [] Other Completed by: [x] Verbal education [] Demonstration [] Handout [] Other: Response to Education: [x] Stated Understanding [x] Reinforcement necessary [] Returned demonstration [] Demonstrated understanding [] No evidence of learning [] Refused PT Goals Pt Will Go Supine To Sit: With standby assistance, With modified independence Pt Will Go Sit To Supine: With standby assistance, With modified independence Pt Will Transfer Sit to Stand: With standby assist Pt Will Transfer Bed/Chair: With standby assist Pt Will Propel Wheelchair: 150-200 feet W/C Level of Assist: With minimal assist, With standby assist Low - 87903 Moderate - 93335 High - 01516 History [] no personal factors &/or comorbidities [] 1-2 personal factors &/or comorbiditi es [x] 3 or more personal factors &/or comorbidities Examination [] 1-2 elements [x] 3 elements [] 4 or more elements Clinical Presentation [] stable [x] evolving [] unstable Clinical Decision Making Complexity: [] Low 63097 [x] Moderate 46072 [] High 9 7163 Past Medical History Diagnosis Date Anemia Hemorrhage of gastrointestinal tract, unspecified Hypertension Liver disease Seizures (HCC) lan o f Care - Conversion Transaction, Provider Unknown - 08/29/2018 10:53 AM PDTFormatting of thi s note might be different from the original. Plan of Care by SN Lisa at 08/29/18 105 Author: SN Lisa Service: (none) Author Type: Senior Financial Consultant Filed: 08/29/18 1051 Date of Service: 08/29/181052 Status: Signed Recovery Unit Operator: SN Lisa (Senior Financial Consultant) Problem: Pain Goal: Patient's pain/discomfort is manageable Assess and monitor patient's pain using appropriate pain scale. Collaborate with interdisci plinary team and initiate plan and interventions as ordered. Re-assess patient's pain level approximately 1-2 hours after pain management intervention. Premedicate as needed. Outcome: Progressing Patient states not in pain Intervention: Offer non-pharmocological pain management interventions Heat therapy provided Problem: Safety Goal: Patient will be injury free during hospitalization Assess and monitor vitals signs, neurological status including level of consciousness and o rientation. Assess patient's risk for falls and implement fall prevention plan of care and i nterventions per hospital policy. Ensure arm band on, uncluttered walking paths in room, adequate room lighting, call light a nd overbed table within reach, bed in low position, wheels locked, side rails up per policy, and non-skid footwear provided. Outcome: Progressing Assessing VS every 4 hours, assessing BP and HR every 1-2 hours per CIWA protocol, assessin g LOC and orientation every 1-2 hours per CIWA protocol, fall risk assessment performed this AM, arm bands on, room free of clutter, fall mat placed next to bed, room dark to promote r est, call light and bedside table in reach, bed locked and in low position, bed alarm on, 3/ 4 side rails up Intervention: Assess patient's risk for falls and implement fall prevention plan of care pe r policy Fall risk assessment performed this AM Fall mat placed next to bed Bed alarm on Intervention: Provide and maintain safe environment Room free of clutter Problem: Daily Care Goal: Daily care needs are met Assess and monitor ability to perform self care and identify potential discharge needs. Outcome: Progressing Checking for incontinence every 1-2 hours Changing brief and linens as needed Intervention: Refer for additional/more intensive therapies as needed Physical therapy to see today Intervention: Provide oral care Oral care will be provided with toothette suction Problem: Psychosocial Needs Goal: Demonstrates ability to cope with hospitalization/illness Assess and monitor patients ability to cope with his/her illness. Outcome: Not Progressing Patient is oriented to self Confusion and LOC interferes with coping techniques Intervention: Provide quiet environment Room quiet Lights off Curtains closed to promote rest Goal: Collaborate with patient/family/caregiver to identify patient specific goals for this hospitalization Outcome: Not Progressing Patient family members have not been visiting in the hospital iscferoz kumar - Conversion Transaction, Provider Unknown - 08/29/2018 7:30 AM PDTFormatting of th is note might be different from the original. Treatment Plan by Rashid Ryder MS CCC-DEVELOPMENTAL SERVICES WORKER at 08/29/18729 Author: Rashid Ryder MS CCC-DEVELOPMENTAL SERVICES WORKER Service: (none) Author Type: Speech and Language Pat hologist Filed: 08/29/1812 Date of Service: 08/29/18729 Status: Signed Recovery Unit Operator: Rashid Ryder MS CCC-DEVELOPMENTAL SERVICES WORKER (Speech and Language Pathologist) BEDSIDE SWALLOW DEVELOPMENTAL SERVICES WORKER Last Visit DEVELOPMENTAL SERVICES WORKER Received On: 08/29/18 Requires DEVELOPMENTAL SERVICES WORKER Follow Up: Yes Recommendations Liquids Consistency Recommendations: Sips of thin water ok between meals-wait 30 min, Ice c hips for oral comfort Diet Consistency Recommendation: Pureed, Other (comment) (1 puree snack at a time) Recommendations: 1:1 supervision, Feeding assist, Dysphagia treatment, Other (Comment) (Per form oral care as needed) Risk for Aspiration: Moderate Compensatory Swallowing Strategies: Upright as possible for all oral intake, Remain upright for 30 minutes after meals, Swallow 2 times per bite/sip, Slow rate presentation, No straws , Small bites/sips, Eat/feed slowly, Check for pocketing, Other (Comment) Recommended Form of Meds: Meds with recommended liquid, Meds floated in puree Summary: Pt admitted due to AMS. Seen upright in bed for initial bedside swallow evaluation with student RN present. Pt required extra cues and repetition to follow directions. Pt was seen with sips of thin water. Anterior loss of liquids on all trials of thins. Increased or al holding time and reduced hyolaryngeal elevation was noted. No overt s/sx pen/asp with thi ns. Pt given limited trials of puree due to fatigue. Increased oral holding time and reduced hyolaryngeal elevation was noted on puree. No overt s/sx pen/asp. Trials were discontinued due to fatigue. It is recommened pt receive 1 puree snack at a time. Sips of thin water with 1:1 supervision is ok between meals. Oral care as needed. ST to follow for dysphagia therap y, pt/caregiver education, to asssess for tolerance of diet upgrade trials, and monitor tole sumanth of diet 4-6x/wk. Pt should be as upright as possible with all PO intake and remain upr ight for 30 minutes post PO intake, 1:1 supervision, small bites/sips, feed slowly, and chec k for pocketing. Staff Notified: RN, Other (Comment) (RN student) Plan of Care Treatment Plan: ST to follow, Dysphagia treatment Treatment Frequency: 4-6 x/week Care Duration (Days): 7 Days Follow up treatments: Swallow strategies, Diet tolerance monitoring, Patient/Family educati on, Assessment for upgrade Swallowing Evaluation: Yes Patient Assessment Temperature Spikes Noted: No Respiratory Status: Room air Behavior/Cognition: Lethargic, Requires cueing Dentition: Poor dental/oral hygiene Vision: Impaired for self-feeding Patient Positioning: Upright in bed Baseline Vocal Quality: Weak Volitional Cough: Weak Volitional Swallow: Delayed Oral Motor Exam Labial ROM: Reduced right, Reduced left Labial Symmetry: Within Functional Limits Labial Strength: Reduced Lingual ROM: Reduced right, Reduced left Lingual Symmetry: Within Functional Limits Lingual Strength: Reduced Facial Symmetry: Within Functional Limits Vocal Quality: Weak Consistencies Consistencies Assessed: Yes Thin Presentation: Cup Oral Phase Thin: Anterior Spillage Right, Anterior Spillage Left, Increased hold time Pharyngeal Phase: Delayed swallow initiated, No overt signs or symptoms of aspiration, Decr eased laryngeal elevation upon palpation Puree Presentation: Spoon Oral Phase: Increased oral holding time Pharyngeal: No overt signs or symptoms of aspiration, Delayed Swallow, Decreased Laryngeal Elevation Goals are progressing unless otherwise indicated. Dysphagia Goals Residential Goals: Safe/efficient oral intake Pt will have safe/efficient oral intake : Puree diet, With feeding assist, New/revised goal Short Term Goals: Tolerate diet upgrade trials Pt will tolerate diet upgrade trials : With 1:1 supervision, New/revised goal Education Completed Education Topics: Dysphagia: Explain results of session, speech-language pathology role, plan of care, most s afe diet and swallow precautions Completed with: [x] Patient [] Spouse [] Significant other [] Family [] Caregiver [x] Other Completed by: [x] Verbal education [] Demonstration [] Handout [] Other: Response to Education: [x] Stated Understanding [x] Reinforcement necessary [] Retur sariah demonstration [] Demonstrated understanding [x] No evidence of learning [] Refused Pt was unable to demonstrate understanding of education. RN student present for education a nd stated understanding. Rashid Ryder MS [facility] WORKER lan o f Care - Conversion Transaction, Provider Unknown - 08/28/2018 10:31 PM PDTFormatting of alisha s note might be different from the original. Plan of Care by Rosalinda Callahan RN at 08/28/182230 Author: Rosalinda Callahan RN Service: (none) Author Type: Registered Nurse Filed: 08/28/182230 Date of Service: 08/28/182230 Status: Signed Recovery Unit Operator: Rosalinda Callahan RN (Registered Nurse) Problem: Elimination Goal: Elimination patterns are normal or improving Outcome: Not Progressing Pt is having watery diarrhea that is green in color. Incontinent to both bowel and bladder . lan o f Care - Conversion Transaction, Provider Unknown - 08/28/2018 11:45 AM PDTFormatting of alisha s note might be different from the original. Plan of Care by Concetta Alvarez RN at 08/28/181144 Author: Concetta Alvarez RN Service: (none) Author Type: Registered Nurse Filed: 08/28/181144 Date of Service: 08/28/181144 Status: Signed Recovery Unit Operator: Concetta Alvarez RN (Registered Nurse) Problem: Fluid and Electrolyte Imbalance Goal: Fluid and electrolyte balance are achieved/maintained Assess and monitor vital signs (orthostatic vitals if applicable), fluid intake and output, urine color, labs, skin turgor, mucous membranes, jugular venous distention, edema, circumf erence of edematous extremities and abdominal girth, respiratory status, and mental status. Monitor for signs and symptoms of hypovolemia (tachycardia, rapid breathing, decreased urin e output, postural hypotension, confusion, syncope). Monitor for signs and symptoms of hype rvolemia (strong rapid pulse, shortness of breath, difficulty breathing lying down, crackles heard in lung montoya, edema). Collaborate with interdisciplinary team and initiate plan and interventions as ordered. Outcome: Not Progressing K 3.3. Mag 1.5 Mag-Ox scheduled BID K-DUR Scheduled TID Pt on electrolyte protocol, however, unable to replace at this time d/t loss of IV access. lan o f Care - Conversion Transaction, Provider Unknown - 08/27/2018 11:02 PM PDTFormatting of thi s note might be different from the original. Plan of Care by Rosalinda Callahan RN at 08/27/182301 Author: Rosalinda Callhaan RN Service: (none) Author Type: Registered Nurse Filed: 08/27/182301 Date of Service: 08/27/182301 Status: Signed Recovery Unit Operator: Rosalinda Callahan RN (Registered Nurse) Problem: Pain Goal: Patient's pain/discomfort is manageable Assess and monitor patient's pain using appropriate pain scale. Collaborate with interdisci plinary team and initiate plan and interventions as ordered. Re-assess patient's pain level approximately 1-2 hours after pain management intervention. Premedicate as needed. Outcome: Progressing No complaints of pain at this time. lan o f Care - Conversion Transaction, Provider Unknown - 08/27/2018 3:56 PM PDTFormatting of alisha s note might be different from the original. Plan of Care by Rosalinda Martinez RN at 08/27/181555 Author: Rosalinda Martinez RN Service: (none) Author Type: Registered Nurse Filed: 08/27/181555 Date of Service: 08/27/181555 Status: Signed Recovery Unit Operator: Rosalinda Martinez RN (Registered Nurse) Problem: Safety Goal: Patient will be injury free during hospitalization Assess and monitor vitals signs, neurological status including level of consciousness and o rientation. Assess patient's risk for falls and implement fall prevention plan of care and i nterventions per hospital policy. Ensure arm band on, uncluttered walking paths in room, adequate room lighting, call light a nd overbed table within reach, bed in low position, wheels locked, side rails up per policy, and non-skid footwear provided. Outcome: Progressing Bed in lowest position. Wheels locked. Side rails x4 and padded. Seizure precautions in ruby ce. Door and curtain open, pt visible in front of nurses station. lan o f Care - Conversion Transaction, Provider Unknown - 08/27/2018 12:36 AM PDTFormatting of thi s note might be different from the original. Plan of Care by Sandi Melgar RN at 08/27/1835 Author: Sandi Melgar RN Service: (none) Author Type: Registered Nurse Filed: 08/27/1835 Date of Service: 08/27/1835 Status: Signed Recovery Unit Operator: Sandi Melgar RN (Registered Nurse) Problem: Safety Goal: Patient will be injury free during hospitalization Assess and monitor vitals signs, neurological status including level of consciousness and o rientation. Assess patient's risk for falls and implement fall prevention plan of care and i nterventions per hospital policy. Ensure arm band on, uncluttered walking paths in room, adequate room lighting, call light a nd overbed table within reach, bed in low position, wheels locked, side rails up per policy, and non-skid footwear provided. Outcome: Progressing pts bed in low and locked position with call yeung in reach and bed alarm on. Seizure preca utions in place. Room has adequate lighting and pathway in room kept clear of clutter. p Not e - Mitchell Stewart MD - 08/26/2018 5:52 PM PDTFormatting of this note might be differ ent from the original. Op Note by Mitchell Stewart IV, MD at 08/26/181751 Author: Mitchell Stewart IV, MD Service: Gastroenterology Author Type: Physician Filed: 08/26/181751 Date of Service: 08/26/181751 Status: Signed Recovery Unit Operator: Mitchell Stewart IV, MD (Physician) [facility] Service: Gastroenterology Operative Note Procedure note was generated using ProVation endoscopy software. The note can be reviewed under Chart Review under Media tab (best) and Procedures tab. P. Ama Stewart IV, MD 08/26/2018 iscellaneous - Mitchell Stewart MD - 08/26/2018 5:27 PM PDT D-C Instructions Provation signed by at 08/26/181754 Author: Mitchell Stewart IV, MD Service: Gastroenterology Author Type: Physician Filed: 08/26/181754 Date of Service: 08/26/181726 Status: Signed Recovery Unit Operator: Mitchell Stewart IV, MD (Physician) Patient Instructions After Upper GI endoscopy Patient: Shaila Son Procedure Date: Sunday, August 26, 2018 Attending MD: Mitchell Stewart IV; You had a Upper GI endoscopy today. Your doctor made the following findings: - Z-line regular, 39 cm from the incisors. - Normal esophagus. - Portal hypertensive gastropathy. - Non-bleeding gastric ulcer with no stigmata of bleeding. - Normal examined duodenum. - Rather pronounced camara-red portal gastropathy involving the majority of the fundus and gastric body. No visible blood in the stomach. Small superficial clean-based ulceration in the antrum without any stigmata suggesting bleeding. No esophageal or gastric varices seen. No evidence of recurrent major bleeding evident. Suspect her limited coffee-ground emesis related to the portal hypertensive gastropathy. - No specimens collected. Your doctor recommends: Resume your previous diet. Continue your present medications. The findings and recommendations were discussed with your family. CALL YOUR PHYSICIAN IF YOU EXPERIENCE: < Any unusual pain < Temperature above 100 degrees Fahrenheit < Shortness of breath DIET: You may resume your regular diet immediately after the procedure unless otherwise instructed by your doctor. CAUTIONS: The medications used to make the examination more comfortable for you will be acting in your body for up to 24 hours. Therefore: < DO NOT drive a car or operate machinery or power tools. < DO NOT drink alcohol or take tranquillizers or sleeping pills. < DO NOT make major personal decisions. This includes signing legal documents and/or contracts. MEDICATIONS: Most medications can be safely resumed once you can eat. The exceptions would be tranquillizers and sleeping pills. Mitchell Stewart IV, 08/26/2018 5:55:33 PM This report has been signed electronically. lan of Care - C onversion Transaction, Provider Unknown - 08/26/2018 11:58 AM PDTFormatting of this note janis ht be different from the original. Plan of Care by Josie Tovar RN at 08/26/181157 Author: Josie Tovar RN Service: (none) Author Type: Registered Nurse Filed: 08/26/181157 Date of Service: 08/26/181157 Status: Signed Recovery Unit Operator: Josie Tovar RN (Registered Nurse) Problem: Safety Goal: Patient will be injury free during hospitalization Assess and monitor vitals signs, neurological status including level of consciousness and o rientation. Assess patient's risk for falls and implement fall prevention plan of care and i nterventions per hospital policy. Ensure arm band on, uncluttered walking paths in room, adequate room lighting, call light a nd overbed table within reach, bed in low position, wheels locked, side rails up per policy, and non-skid footwear provided. Outcome: Progressing Bed alarm on at all times. Bed wheels locked and in lowest position. lan o f Care - Conversion Transaction, Provider Unknown - 08/26/2018 1:46 AM PDTFormatting of thi s note might be different from the original. Plan of Care by Sandi Melgar RN at 08/26/18145 Author: Sandi Melgar RN Service: (none) Author Type: Registered Nurse Filed: 08/26/18145 Date of Service: 08/26/18145 Status: Signed Recovery Unit Operator: Sandi Melgar RN (Registered Nurse) Problem: Safety Goal: Patient will be injury free during hospitalization Assess and monitor vitals signs, neurological status including level of consciousness and o rientation. Assess patient's risk for falls and implement fall prevention plan of care and i nterventions per hospital policy. Ensure arm band on, uncluttered walking paths in room, adequate room lighting, call light a nd overbed table within reach, bed in low position, wheels locked, side rails up per policy, and non-skid footwear provided. Outcome: Progressing pts bed in low and locked position with call yeung in reach and bed alarm on. Seizure preca utions in place. Pt instructed to call for assistance. Room has adequate lighting and path way in room kept clear of clutter. iscferoz kumar - Conversion Transaction, Provider Unknown - 08/25/2018 3:42 PM PDTFormatting of th is note might be different from the original. Medication History by Sharri Leon RPH at 08/25/181541 Author: Sharri Leon RPH Service: Pharmacy Author Type: Pharmacist Filed: 08/25/181541 Date of Service: 08/25/181541 Status: Signed Recovery Unit Operator: Sharri Leon RPH (Pharmacist) Rx Admission Medication History Note Pharmacy is unable to obtain best possible medication history at this time. Thanks Sharri Leon, PharmD, [facility] >> Arielle Sellers CPhT 08/25/2018 14:38 Patient was unable to provide any information on what medication she's taking and when she last took them. docume nted in this encounter Plan of Treatment Not on filedocumented as of this encounter Procedures + +--------+ + + + | Procedure Name | Priori | Date/Time | Associated Diagnosis | Comments | | | ty | | | | + +--------+ + + + | SODIUM, URINE, | Routin | 09/05/2018 | | Results for this | | RANDOM | e | 5:35 AM | | procedure are in the | | | | PDT | | results section. | + +--------+ + + + | POTASSIUM, URINE, | Routin | 09/05/2018 | | Results for this | | RANDOM | e | 5:35 AM | | procedure are in the | | | | PDT | | results section. | + +--------+ + + + | CBC NO DIFFERENTIAL | Routin | 09/05/2018 | | Results for this | | | e | 5:11 AM | | procedure are in the | | | | PDT | | results section. | + +--------+ + + + | COMPREHENSIVE | Routin | 09/05/2018 | | Results for this | | METABOLIC PANEL | e | 5:11 AM | | procedure are in the | | | | PDT | | results section. | + +--------+ + + + | CBC NO DIFFERENTIAL | Routin | 09/04/2018 | | Results for this | | | e | 4:40 AM | | procedure are in the | | | | PDT | | results section. | + +--------+ + + + | COMPREHENSIVE | Routin | 09/04/2018 | | Results for this | | METABOLIC PANEL | e | 4:40 AM | | procedure are in the | | | | PDT | | results section. | + +--------+ + + + | EXTERNAL LAB: | Timed | 09/03/2018 | | Results for this | | ALBUMIN | | 12:43 PM | | procedure are in the | | | | PDT | | results section. | + +--------+ + + + | EXTERNAL LAB: | Timed | 09/03/2018 | | Results for this | | PROTEIN, TOTAL | | 12:43 PM | | procedure are in the | | | | PDT | | results section. | + +--------+ + + + | CELL COUNT, BODY | Timed | 09/03/2018 | | Results for this | | FLUID | | 12:43 PM | | procedure are in the | | | | PDT | | results section. | + +--------+ + + + | CULTURE, BODY FLUID, | Timed | 09/03/2018 | | Results for this | | STERILE, SMEAR, | | 12:43 PM | | procedure are in the | | WITH ANAEROBES | | PDT | | results section. | + +--------+ + + + | US GUIDED | Routin | 09/03/2018 | | Results for this | | PARACENTESIS | e | 12:35 PM | | procedure are in the | | | | PDT | | results section. | + +--------+ + + + | PTT | Routin | 09/03/2018 | | Results for this | | | e | 4:42 AM | | procedure are in the | | | | PDT | | results section. | + +--------+ + + + | PROTIME INR | Routin | 09/03/2018 | | Results for this | | | e | 4:42 AM | | procedure are in the | | | | PDT | | results section. | + +--------+ + + + | CBC NO DIFFERENTIAL | Routin | 09/03/2018 | | Results for this | | | e | 4:42 AM | | procedure are in the | | | | PDT | | results section. | + +--------+ + + + | COMPREHENSIVE | Routin | 09/03/2018 | | Results for this | | METABOLIC PANEL | e | 4:42 AM | | procedure are in the | | | | PDT | | results section. | + +--------+ + + + | CBC NO DIFFERENTIAL | Routin | 09/02/2018 | | Results for this | | | e | 4:34 AM | | procedure are in the | | | | PDT | | results section. | + +--------+ + + + | MAGNESIUM | Routin | 09/02/2018 | | Results for this | | | e | 4:34 AM | | procedure are in the | | | | PDT | | results section. | + +--------+ + + + | HEPATIC FUNCTION | Routin | 09/02/2018 | | Results for this | | PANEL | e | 4:34 AM | | procedure are in the | | | | PDT | | results section. | + +--------+ + + + | RENAL FUNCTION PANEL | Routin | 09/02/2018 | | Results for this | | | e | 4:34 AM | | procedure are in the | | | | PDT | | results section. | + +--------+ + + + | US ABDOMEN LIMITED | Routin | 09/01/2018 | | Results for this | | | e | 3:05 PM | | procedure are in the | | | | PDT | | results section. | + +--------+ + + + | SODIUM, URINE, | Routin | 09/01/2018 | | Results for this | | RANDOM | e | 2:21 PM | | procedure are in the | | | | PDT | | results section. | + +--------+ + + + | EOSINOPHIL SMEAR, | Routin | 09/01/2018 | | Results for this | | URINE | e | 2:20 PM | | procedure are in the | | | | PDT | | results section. | + +--------+ + + + | CBC NO DIFFERENTIAL | Routin | 09/01/2018 | | Results for this | | | e | 4:37 AM | | procedure are in the | | | | PDT | | results section. | + +--------+ + + + | MAGNESIUM | Routin | 09/01/2018 | | Results for this | | | e | 4:37 AM | | procedure are in the | | | | PDT | | results section. | + +--------+ + + + | RENAL FUNCTION PANEL | Routin | 09/01/2018 | | Results for this | | | e | 4:37 AM | | procedure are in the | | | | PDT | | results section. | + +--------+ + + + | AMMONIA | Routin | 08/31/2018 | | Results for this | | | e | 6:19 PM | | procedure are in the | | | | PDT | | results section. | + +--------+ + + + | RENAL FUNCTION PANEL | Routin | 08/31/2018 | | Results for this | | | e | 6:19 PM | | procedure are in the | | | | PDT | | results section. | + +--------+ + + + | EXTERNAL LAB: CBC | Routin | 08/31/2018 | | Results for this | | | e | 4:35 AM | | procedure are in the | | | | PDT | | results section. | + +--------+ + + + | IRON AND IRON | Routin | 08/31/2018 | | Results for this | | BINDING CAPACITY | e | 4:35 AM | | procedure are in the | | | | PDT | | results section. | + +--------+ + + + | RETIC COUNT | Routin | 08/31/2018 | | Results for this | | | e | 4:35 AM | | procedure are in the | | | | PDT | | results section. | + +--------+ + + + | MAGNESIUM | Routin | 08/31/2018 | | Results for this | | | e | 4:35 AM | | procedure are in the | | | | PDT | | results section. | + +--------+ + + + | FERRITIN | Routin | 08/31/2018 | | Results for this | | | e | 4:35 AM | | procedure are in the | | | | PDT | | results section. | + +--------+ + + + | RENAL FUNCTION PANEL | Routin | 08/31/2018 | | Results for this | | | e | 4:35 AM | | procedure are in the | | | | PDT | | results section. | + +--------+ + + + | EXTERNAL LAB: CBC | Routin | 08/30/2018 | | Results for this | | | e | 4:33 AM | | procedure are in the | | | | PDT | | results section. | + +--------+ + + + | PHOSPHORUS | Routin | 08/30/2018 | | Results for this | | | e | 4:33 AM | | procedure are in the | | | | PDT | | results section. | + +--------+ + + + | MAGNESIUM | Routin | 08/30/2018 | | Results for this | | | e | 4:33 AM | | procedure are in the | | | | PDT | | results section. | + +--------+ + + + | COMPREHENSIVE | Routin | 08/30/2018 | | Results for this | | METABOLIC PANEL | e | 4:33 AM | | procedure are in the | | | | PDT | | results section. | + +--------+ + + + | POTASSIUM | Routin | 08/29/2018 | | Results for this | | | e | 8:33 PM | | procedure are in the | | | | PDT | | results section. | + +--------+ + + + | COMPREHENSIVE | Routin | 08/29/2018 | | Results for this | | METABOLIC PANEL | e | 11:06 AM | | procedure are in the | | | | PDT | | results section. | + +--------+ + + + | EXTERNAL LAB: CBC | Routin | 08/29/2018 | | Results for this | | | e | 2:36 AM | | procedure are in the | | | | PDT | | results section. | + +--------+ + + + | POTASSIUM | Routin | 08/29/2018 | | Results for this | | | e | 2:36 AM | | procedure are in the | | | | PDT | | results section. | + +--------+ + + + | PHOSPHORUS | Routin | 08/29/2018 | | Results for this | | | e | 2:36 AM | | procedure are in the | | | | PDT | | results section. | + +--------+ + + + | MAGNESIUM | Routin | 08/29/2018 | | Results for this | | | e | 2:36 AM | | procedure are in the | | | | PDT | | results section. | + +--------+ + + + | POTASSIUM | Routin | 08/28/2018 | | Results for this | | | e | 10:54 PM | | procedure are in the | | | | PDT | | results section. | + +--------+ + + + | MAGNESIUM | Routin | 08/28/2018 | | Results for this | | | e | 10:54 PM | | procedure are in the | | | | PDT | | results section. | + +--------+ + + + | MAGNESIUM | Routin | 08/28/2018 | | Results for this | | | e | 6:12 PM | | procedure are in the | | | | PDT | | results section. | + +--------+ + + + | XR CHEST 1 VIEW | Routin | 08/28/2018 | | Results for this | | | e | 12:51 PM | | procedure are in the | | | | PDT | | results section. | + +--------+ + + + | EXTERNAL LAB: CBC | Routin | 08/28/2018 | | Results for this | | | e | 4:29 AM | | procedure are in the | | | | PDT | | results section. | + +--------+ + + + | PHOSPHORUS | Routin | 08/28/2018 | | Results for this | | | e | 4:29 AM | | procedure are in the | | | | PDT | | results section. | + +--------+ + + + | MAGNESIUM | Routin | 08/28/2018 | | Results for this | | | e | 4:29 AM | | procedure are in the | | | | PDT | | results section. | + +--------+ + + + | COMPREHENSIVE | Routin | 08/28/2018 | | Results for this | | METABOLIC PANEL | e | 4:29 AM | | procedure are in the | | | | PDT | | results section. | + +--------+ + + + | EXTERNAL LAB: CBC | Routin | 08/27/2018 | | Results for this | | | e | 5:00 AM | | procedure are in the | | | | PDT | | results section. | + +--------+ + + + | PHOSPHORUS | Routin | 08/27/2018 | | Results for this | | | e | 5:00 AM | | procedure are in the | | | | PDT | | results section. | + +--------+ + + + | MAGNESIUM | Routin | 08/27/2018 | | Results for this | | | e | 5:00 AM | | procedure are in the | | | | PDT | | results section. | + +--------+ + + + | COMPREHENSIVE | Routin | 08/27/2018 | | Results for this | | METABOLIC PANEL | e | 5:00 AM | | procedure are in the | | | | PDT | | results section. | + +--------+ + + + | ENDOSCOPY | Routin | 08/26/2018 | | Results for this | | | e | 5:27 PM | | procedure are in the | | | | PDT | | results section. | + +--------+ + + + | MAGNESIUM | Routin | 08/26/2018 | | Results for this | | | e | 11:37 AM | | procedure are in the | | | | PDT | | results section. | + +--------+ + + + | XR ANKLE RIGHT 3 + | Routin | 08/26/2018 | | Results for this | | VW | e | 8:33 AM | | procedure are in the | | | | PDT | | results section. | + +--------+ + + + | HEMOGLOBIN AND | Routin | 08/26/2018 | | Results for this | | HEMATOCRIT | e | 8:06 AM | | procedure are in the | | | | PDT | | results section. | + +--------+ + + + | POTASSIUM | Routin | 08/26/2018 | | Results for this | | | e | 7:01 AM | | procedure are in the | | | | PDT | | results section. | + +--------+ + + + | MAGNESIUM | Routin | 08/26/2018 | | Results for this | | | e | 7:01 AM | | procedure are in the | | | | PDT | | results section. | + +--------+ + + + | POTASSIUM | Routin | 08/26/2018 | | Results for this | | | e | 2:32 AM | | procedure are in the | | | | PDT | | results section. | + +--------+ + + + | MAGNESIUM | Routin | 08/26/2018 | | Results for this | | | e | 2:32 AM | | procedure are in the | | | | PDT | | results section. | + +--------+ + + + | EXTERNAL LAB: CBC | Routin | 08/26/2018 | | Results for this | | | e | 2:31 AM | | procedure are in the | | | | PDT | | results section. | + +--------+ + + + | PTT | Routin | 08/26/2018 | | Results for this | | | e | 2:31 AM | | procedure are in the | | | | PDT | | results section. | + +--------+ + + + | PROTIME INR | Routin | 08/26/2018 | | Results for this | | | e | 2:31 AM | | procedure are in the | | | | PDT | | results section. | + +--------+ + + + | TSH | Routin | 08/26/2018 | | Results for this | | | e | 2:31 AM | | procedure are in the | | | | PDT | | results section. | + +--------+ + + + | PHOSPHORUS | Routin | 08/26/2018 | | Results for this | | | e | 2:31 AM | | procedure are in the | | | | PDT | | results section. | + +--------+ + + + | COMPREHENSIVE | Routin | 08/26/2018 | | Results for this | | METABOLIC PANEL | e | 2:31 AM | | procedure are in the | | | | PDT | | results section. | + +--------+ + + + | HEMOGLOBIN AND | Routin | 08/25/2018 | | Results for this | | HEMATOCRIT | e | 11:45 PM | | procedure are in the | | | | PDT | | results section. | + +--------+ + + + | HEMOGLOBIN AND | Routin | 08/25/2018 | | Results for this | | HEMATOCRIT | e | 6:54 PM | | procedure are in the | | | | PDT | | results section. | + +--------+ + + + | POTASSIUM | Routin | 08/25/2018 | | Results for this | | | e | 6:54 PM | | procedure are in the | | | | PDT | | results section. | + +--------+ + + + | MAGNESIUM | Routin | 08/25/2018 | | Results for this | | | e | 6:54 PM | | procedure are in the | | | | PDT | | results section. | + +--------+ + + + | ECG 12 LEAD | Routin | 08/25/2018 | | Results for this | | | e | 3:00 PM | | procedure are in the | | | | PDT | | results section. | + +--------+ + + + | TYPE AND SCREEN | Routin | 08/25/2018 | | Results for this | | | e | 2:35 PM | | procedure are in the | | | | PDT | | results section. | + +--------+ + + + | AMMONIA | Routin | 08/25/2018 | | Results for this | | | e | 2:07 PM | | procedure are in the | | | | PDT | | results section. | + +--------+ + + + | HISTORICAL LAB PANEL | Routin | 08/25/2018 | | Results for this | | RESULT | e | 1:45 PM | | procedure are in the | | | | PDT | | results section. | + +--------+ + + + | TROPONIN I | Routin | 08/25/2018 | | Results for this | | | e | 1:45 PM | | procedure are in the | | | | PDT | | results section. | + +--------+ + + + | MAGNESIUM | Routin | 08/25/2018 | | Results for this | | | e | 1:45 PM | | procedure are in the | | | | PDT | | results section. | + +--------+ + + + | ALCOHOL | Routin | 08/25/2018 | | Results for this | | | e | 1:45 PM | | procedure are in the | | | | PDT | | results section. | + +--------+ + + + documented in this encounter Results Sodium, Urine, Random (09/05/2018 5:35 AM PDT) + + + + + + | Component | Value | Ref Range | Performed | Pathologist | | | | | At | Signature | + + + + + + | Sodium, | 78Comment: NO NORMAL | mmol/L | EXTERNAL | | | Urine | RANGE ESTABLISHEDTesting | | LAB | | | Random | performed at [facility], [address], | | | | | | [place] [address] | | | | + + + + + + + + | Specimen | + + | Urine specimen | | (specimen) | + + + +---------+ + + | Performing | Address | City/State/Zipcode | Phone Number | | Organization | | | | + +---------+ + + | EXTERNAL LAB | | | | + +---------+ + + Potassium, Urine, Random (09/05/2018 5:35 AM PDT) + + + + + + | Component | Value | Ref Range | Performed | Pathologist | | | | | At | Signature | + + + + + + | Potassium, | 30Comment: NO NORMAL | mmol/L | EXTERNAL | | | Urine | RANGE ESTABLISHEDTesting | | LAB | | | | performed at [facility], [address], | | | | | | [place] [address] | | | | + + + [...] + +---------+ + + CBC no Differential (09/05/2018 5:11 AM PDT) + + + + + + | Component | Value | Ref Range | Performed | Pathologist | | | | | At | Signature | + + + + + + | WBC | 4.54 | 3.80 - 11.00 | EXTERNAL | | | | | K/uL | LAB | | + + + + + + | Non- | 2.63 (L) | 3.70 - 5.10 | EXTERNAL | | | Red Blood | | M/uL | LAB | | | Cells | | | | | | Counted | | | | | + + + + + + | Hemoglobin | 8.4 (L) | 11.3 - 15.5 | EXTERNAL | | | | | g/dL | LAB | | + + + + + + | Hematocrit, | 24.6 (L) | 34.0 - 46.0 % | EXTERNAL | | | POC | | | LAB | | + + + + + + | MCV | 93.3 | 80.0 - 100.0 fl | EXTERNAL | | | | | | LAB | | + + + + + + | MCH | 32.1 | 27.0 - 34.0 pg | EXTERNAL | | | | | | LAB | | + + + + + + | MCHC | 34.4 | 32.0 - 35.5 | EXTERNAL | | | | | g/dL | LAB | | + + + + + + | RDW-CV | 53.8 (H) | 37 - 53 fl | EXTERNAL | | | | | | LAB | | + + + + + + | Platelet | 153 | 150 - 400 K/uL | EXTERNAL | | | Count | | | LAB | | | Plasma | | | | | + + + + + + | MPV | 9.4Comment: Testing | fl | EXTERNAL | | | | performed at [facility], [address] | | LAB | | | | [address], | | | | | | [place] [address] | | | | + + + + + + + + | Specimen | + + | | + + + +---------+ + + | Performing | Address | City/State/Zipcode | Phone Number | | Organization | | | | + +---------+ + + | EXTERNAL LAB | | | | + +---------+ + + Comprehensive Metabolic Panel (09/05/2018 5:11 AM PDT) + + + + + + | Component | Value | Ref Range | Performed | Pathologist | | | | | At | Signature | + + + + + + | Na | 136 | 135 - 145 | EXTERNAL | | | | | mmol/L | LAB | | + + + + + + | K | 3.8 | 3.5 - 4.9 | EXTERNAL | | | | | mmol/L | LAB | | + + + + + + | Cl | 108 | 99 - 109 mmol/L | EXTERNAL | | | | | | LAB | | + + + + + + | CO2 | 21 (L) | 23 - 32 mmol/L | EXTERNAL | | | | | | LAB | | + + + + + + | Anion Gap | 11 | 5 - 20 mmol/L | EXTERNAL | | | | | | LAB | | + + + + + + | Glucose, | 82 | 65 - 99 mg/dL | EXTERNAL | | | Fasting | | | LAB | | + + + + + + | BUN | 13 | 8 - 25 mg/dL | EXTERNAL | | | | | | LAB | | + + + + + + | Creatinine | 0.9 | 0.50 - 1.00 | EXTERNAL | | | | | mg/dL | LAB | | + + + + + + | BUN/Creatin | 14 | | EXTERNAL | | | ine Ratio | | | LAB | | + + + + + + | Calcium | 7.8 (L) | 8.5 - 10.5 | EXTERNAL | | | | | mg/dL | LAB | | + + + + + + | Protein, | 6.2 (L) | 6.3 - 8.2 g/dL | EXTERNAL | | | Total | | | LAB | | + + + + + + | Albumin | 1.6 (L) | 3.6 - 5.0 g/dL | EXTERNAL | | | | | | LAB | | + + + + + + | Globulin | 4.6 | 1.3 - 4.9 g/dL | EXTERNAL | | | | | | LAB | | + + + + + + | A/G Ratio | 0.3 (L) | 1.0 - 2.4 | EXTERNAL | | | | | | LAB | | + + + + + + | Bilirubin | 0.6 | 0.1 - 1.5 mg/dL | EXTERNAL | | | Total | | | LAB | | + + + + + + | ALP, | 158 (H) | 35 - 115 U/L | EXTERNAL | | | External | | | LAB | | + + + + + + | AST | 37 | 10 - 45 U/L | EXTERNAL | | | | | | LAB | | + + + + + + | ALT | 15 | 10 - 65 U/L | EXTERNAL | | | | | | LAB | | + + + + + [...] BY | | | | | | 1.210.This eGFR is | | | | | | calculated using the | | | | | | MDRD IDMT traceable | | | | | | equation.Testing | | | | | | performed at [facility], [address] | | | | | | [facility], | | | | | | [place] [address] | | | | + + + [...] + +---------+ + + CBC no Differential (09/04/2018 4:40 AM PDT) + + + + + + | Component | Value | Ref Range | Performed | Pathologist | | | | | At | Signature | + + + + + + | WBC | 4.12 | 3.80 - 11.00 | EXTERNAL | | | | | K/uL | LAB | | + + + + + + | Non- | 2.56 (L) | 3.70 - 5.10 | EXTERNAL | | | Red Blood | | M/uL | LAB | | | Cells | | | | | | Counted | | | | | + + + + + + | Hemoglobin | 8.1 (L) | 11.3 - 15.5 | EXTERNAL | | | | | g/dL | LAB | | + + + + + + | Hematocrit, | 24.2 (L) | 34.0 - 46.0 % | EXTERNAL | | | POC | | | LAB | | + + + + + + | MCV | 94.8 | 80.0 - 100.0 fl | EXTERNAL | | | | | | LAB | | + + + + + + | MCH | 31.7 | 27.0 - 34.0 pg | EXTERNAL | | | | | | LAB | | + + + + + + | MCHC | 33.4 | 32.0 - 35.5 | EXTERNAL | | | | | g/dL | LAB | | + + + + + + | RDW-CV | 53.4 (H) | 37 - 53 fl | EXTERNAL | | | | | | LAB | | + + + + + + | Platelet | 142 (L) | 150 - 400 K/uL | EXTERNAL | | | Count | | | LAB | | | Plasma | | | | | + + + + + + | MPV | 9.1Comment: Testing | fl | EXTERNAL | | | | performed at [facility], [address] | | LAB | | | | [address], | | | | | | [place] [address] | | | | + + + + + + + + | Specimen | + + | | + + + +---------+ + + | Performing | Address | City/State/Zipcode | Phone Number | | Organization | | | | + +---------+ + + | EXTERNAL LAB | | | | + +---------+ + + Comprehensive Metabolic Panel (09/04/2018 4:40 AM PDT) + + + + + + | Component | Value | Ref Range | Performed | Pathologist | | | | | At | Signature | + + + + + + | Na | 138 | 135 - 145 | EXTERNAL | | | | | mmol/L | LAB | | + + + + + + | K | 4.3 | 3.5 - 4.9 | EXTERNAL | | | | | mmol/L | LAB | | + + + + + + | Cl | 109 | 99 - 109 mmol/L | EXTERNAL | | | | | | LAB | | + + + + + + | CO2 | 21 (L) | 23 - 32 mmol/L | EXTERNAL | | | | | | LAB | | + + + + + + | Anion Gap | 12 | 5 - 20 mmol/L | EXTERNAL | | | | | | LAB | | + + + + + + | Glucose, | 95 | 65 - 99 mg/dL | EXTERNAL | | | Fasting | | | LAB | | + + + + + + | BUN | 17 | 8 - 25 mg/dL | EXTERNAL | | | | | | LAB | | + + + + + + | Creatinine | 1.0 | 0.50 - 1.00 | EXTERNAL | | | | | mg/dL | LAB | | + + + + + + | BUN/Creatin | 17 | | EXTERNAL | | | ine Ratio | | | LAB | | + + + + + + | Calcium | 7.5 (L) | 8.5 - 10.5 | EXTERNAL | | | | | mg/dL | LAB | | + + + + + + | Protein, | 5.8 (L) | 6.3 - 8.2 g/dL | EXTERNAL | | | Total | | | LAB | | + + + + + + | Albumin | 1.5 (L) | 3.6 - 5.0 g/dL | EXTERNAL | | | | | | LAB | | + + + + + + | Globulin | 4.3 | 1.3 - 4.9 g/dL | EXTERNAL | | | | | | LAB | | + + + + + + | A/G Ratio | 0.3 (L) | 1.0 - 2.4 | EXTERNAL | | | | | | LAB | | + + + + + + | Bilirubin | 0.5 | 0.1 - 1.5 mg/dL | EXTERNAL | | | Total | | | LAB | | + + + + + + | ALP, | 159 (H) | 35 - 115 U/L | EXTERNAL | | | External | | | LAB | | + + + + + + | AST | 36 | 10 - 45 U/L | EXTERNAL | | | | | | LAB | | + + + + + + | ALT | 13 | 10 - 65 U/L | EXTERNAL | | | | | | LAB | | + + + + + + | Estimated | 59 (L)Comment: GFR <60: | mL/min/1.73m2 | EXTERNAL | [...] BY | | | | | | 1.210.This eGFR is | | | | | | calculated using the | | | | | | MDRD IDMT traceable | | | | | | equation.Testing | | | | | | performed at [facility], [address] | | | | | | [facility], | | | | | | [place] [address] | | | | + + + [...] + +---------+ + + Culture, Body Fluid, Sterile, Smear, with Anaerobes (09/03/2018 12:43 PM PDT) + + | Specimen | + + | Body fluid sample | | (specimen) | + + + + + | Narrative | Performed At | + + + | Specimen Description ASCITES FLUID GRAM STAIN | EXTERNAL LAB | | 1+ | | | WBC'S SEEN | | | NO ORGANISMS SEEN CULTURE | | | NO GROWTH 4 DAYS | | + + + + +---------+ + + | Performing | Address | City/State/Zipcode | Phone Number | | Organization | | | | + +---------+ + + | EXTERNAL LAB | | | | + +---------+ + + Cell Count, Body Fluid (09/03/2018 12:43 PM PDT) + + | Specimen | + + | Body fluid sample | | (specimen) | + + + + + | Narrative | Performed At | + + + | FLUID TYPE ASCITES FLUID COLOR | EXTERNAL LAB | | YELLOW APPEARANCE | | | CLEAR RBC'S | | | 17 TOTAL NUCLEATED CELLS | | | 78 NEUTROPHILS | | | 8 LYMPHOCYTES | | | 7 MONOCYTES/MACROPHAGES 53 | | | Mesothelial Cells 32 | | | CELLS COUNTED 100 Testing | | | performed at [facility] [facility];[place] [address] | | + + + + +---------+ + + | Performing | Address | City/State/Zipcode | Phone Number | | Organization | | | | + +---------+ + + | EXTERNAL LAB | | | | + +---------+ + + External Lab: Protein, Total (09/03/2018 12:43 PM PDT) + + | Specimen | + + | Body fluid sample | | (specimen) | + + + + + | Narrative | Performed At | + + + | FLUID TOTAL PROTEIN 2.1 This is | EXTERNAL LAB | | not a channel supervisor validated sample type for this method. No reference | | | ranges have been established. Testing performed at [facility], [address] | | | [place] [address] FLUID TP SOURCE | | | ASCITES FLUID Testing performed at [facility];[address] | | [facility];[place] [address] | | + + + + +---------+ + + | Performing | Address | City/State/Zipcode | Phone Number | | Organization | | | | + +---------+ + + | EXTERNAL LAB | | | | + +---------+ + + External Lab: Albumin (09/03/2018 12:43 PM PDT) + + | Specimen | + + | Body fluid sample | | (specimen) | + + + + + | Narrative | Performed At | + + + | FLUID ALBUMIN 0.7 This is | EXTERNAL LAB | | not a channel supervisor validated sample type for this method. No | | | reference ranges have been established. Testing performed at [facility], | | | [address] [place] [address] | | + + + + +---------+ + + | Performing | Address | City/State/Zipcode | Phone Number | | Organization | | | | + +---------+ + + | EXTERNAL LAB | | | | + +---------+ + + US Guided Paracentesis (09/03/2018 12:35 PM PDT) + + | Specimen | + + | | + + + + + | Narrative | Performed At | + + + | PROCEDURE Ultrasound-guided diagnostic and therapeutic | | | paracentesis. INDICATIONS Abdominal distention and discomfort, | | | patient with history of liver disease and recurrent ascites. * * | | | ALLERGIES* * 1. ASPIRIN 2. LACTOSE 3. CIPROFLOXACIN 4. | | | IBUPROFEN LABORATORY DATA Labs performed: CBC indicates | | | platelet count of 250,000, INR of 1.3, and PTT of 33. REFERRING | | | PHYSICIAN Ha Aguayo M.D. DESCRIPTION OF PROCEDURE I met | | | this patient in Room 8114. The patient was awake, alert, and oriented | | | x 3 and in no acute distress. We had a discussion about the procedure, | | | the risks involved, and the alternatives. The patient understood this | | | and their desire was to proceed with the procedure. Therefore a | | | written informed consent was obtained. A pre-procedural pause | | | time-out was performed indicating the procedure, the patient, and the | | | site. All members of the team were in agreement. Ultrasound was | | | utilized to tom the area in the left lower abdominal quadrant with | | | the largest pocket of fluid. The area was prepped utilizing | | | chlorhexidine circular scrubs. Sterile drapes were wisam and sterile | | | technique was maintained throughout the procedure. Lidocaine 1% | | | was infused through the skin tissues at the insertion point, with good | | | effect. A small sam was made through the skin tissues with a #11 | | | blade. Then, a large-bore paracentesis needle was guided through the | | | skin tissues using aspiration at the end of the syringe. When | | | into the ascitic fluid, there was an immediate return of clear, yellow | | | fluid. The needle was removed and the catheter was advanced. This | | | was attached to negative-pressure Vacutainer tubing system with a | | | brisk return of fluid. The total amount of fluid removed was 3000 | | | mL of clear, yellow peritoneal fluid. The patient's vital signs | | | remained stable throughout the procedure and no post-procedural | | | complications were encountered. When 3000 mL was reached the | | | procedure was terminated. The catheter was removed and pressure | | | was applied to the site for 3 minutes, no further leakage was noted. | | | The patient verbalized relief of abdominal discomfort, abdominal | | | distention. The fluid was sent to the laboratory for indicated | | | testing. IMPRESSION 1. Successful ultrasound-guided Diagnostic | | | and therapeutic paracentesis with removal of 3000 mL of clear, yellow | | | peritoneal fluid. 2. No immediate postprocedural complications were | | | encountered. This report has been prepared with a voice | | | recognition system. The possibility of "sound alike" undergraduate intern | | | errors, addition and/or deletions may occur. If there is any | | | question about this report please contact the author of the report. | | | | | + + + + + | Procedure Note | + + | Jermaine, Rad Conversion - 11/19/2018 7:29 PM PDT PROCEDUREUltrasound-guided diagnostic | | and therapeutic paracentesis. INDICATIONSAbdominal distention and discomfort, patient | | with history of liver disease and recurrent ascites. * * ALLERGIES* *1. ASPIRIN2. | | LACTOSE3. CIPROFLOXACIN4. IBUPROFEN LABORATORY DATALabs performed: CBC indicates | | platelet count of 250,000, INR of 1.3, and PTT of 33. REFERRING PHYSICIANHa | | Sukhwinder Aguayo DESCRIPTION OF PROCEDUREI met this patient in Room 8114. The patient was | | awake, alert, and oriented x 3 and in no acute distress. We had a discussion about the | | procedure, the risks involved, and the alternatives. The patient understood this and | | their desire was to proceed with the procedure. Therefore a written informed consent was | | obtained. A pre-procedural pause time-out was performed indicating the procedure, the | | patient, and the site. All members of the team were in agreement. Ultrasound was | | utilized to tom the area in the left lower abdominal quadrant with the largest pocket | | of fluid. The area was prepped utilizing chlorhexidine circular scrubs. Sterile drapes | | were wisam and sterile technique was maintained throughout the procedure. Lidocaine 1% | | was infused through the skin tissues at the insertion point, with good effect. A small | | sam was made through the skin tissues with a #11 blade. Then, a large-bore | | paracentesis needle was guided through the skin tissues using aspiration at the end of | | the syringe. When into the ascitic fluid, there was an immediate return of clear, | | yellow fluid. The needle was removed and the catheter was advanced. This was attached | | to negative-pressure Vacutainer tubing system with a brisk return of fluid. The total | | amount of fluid removed was 3000 mL of clear, yellow peritoneal fluid. The patient's | | vital signs remained stable throughout the procedure and no post-procedural | | complications were encountered. When 3000 mL was reached the procedure was terminated. | | The catheter was removed and pressure was applied to the site for 3 minutes, no further | | leakage was noted. The patient verbalized relief of abdominal discomfort, abdominal | | distention. The fluid was sent to the laboratory for indicated testing. IMPRESSION1. | | Successful ultrasound-guided Diagnostic and therapeutic paracentesis with removal of | | 3000 mL of clear, yellow peritoneal fluid.2. No immediate postprocedural complications | | were encountered. This report has been prepared with a voice recognition system. The | | possibility of "sound alike" undergraduate intern errors, addition and/or deletions may occur. | | If there is any question about this report please contact the author of the report. | | | |was terminated. The catheter was removed and pressure was applied to the site for 3 minute s, no further leakage was noted. The patient verbalized relief of abdominal discomfort, abd ominal distention. The fluid was sent | |to the laboratory for indicated | |testing. | | | |IMPRESSION | |1. Successful ultrasound-guided Diagnostic and therapeutic paracentesis with removal of 300 0 mL of clear, yellow peritoneal fluid. | |2. No immediate postprocedural complications were encountered. | | | | | |This report has been prepared with a voice recognition system. The possibility of "sound a like" undergraduate intern errors, addition and/or deletions may occur. If there is any question a bout this report please contact the author of the report. | | | | | + + CBC no Differential (09/03/2018 4:42 AM PDT) + + + + + + | Component | Value | Ref Range | Performed | Pathologist | | | | | At | Signature | + + + + + + | WBC | 5.10 | 3.80 - 11.00 | EXTERNAL | | | | | K/uL | LAB | | + + + + + + | Non- | 2.66 (L) | 3.70 - 5.10 | EXTERNAL | | | Red Blood | | M/uL | LAB | | | Cells | | | | | | Counted | | | | | + + + + + + | Hemoglobin | 8.4 (L) | 11.3 - 15.5 | EXTERNAL | | | | | g/dL | LAB | | + + + + + + | Hematocrit, | 25.0 (L) | 34.0 - 46.0 % | EXTERNAL | | | POC | | | LAB | | + + + + + + | MCV | 94.2 | 80.0 - 100.0 fl | EXTERNAL | | | | | | LAB | | + + + + + + | MCH | 31.8 | 27.0 - 34.0 pg | EXTERNAL | | | | | | LAB | | + + + + + + | MCHC | 33.7 | 32.0 - 35.5 | EXTERNAL | | | | | g/dL | LAB | | + + + + + + | RDW-CV | 54.7 (H) | 37 - 53 fl | EXTERNAL | | | | | | LAB | | + + + + + + | Platelet | 150 | 150 - 400 K/uL | EXTERNAL | | | Count | | | LAB | | | Plasma | | | | | + + + + + + | MPV | 8.9Comment: Testing | fl | EXTERNAL | | | | performed at [facility], [address] | | LAB | | | | [address], | | | | | | [place] [address] | | | | + + + + + + + + | Specimen | + + | | + + + +---------+ + + | Performing | Address | City/State/Zipcode | Phone Number | | Organization | | | | + +---------+ + + | EXTERNAL LAB | | | | + +---------+ + + PTT (09/03/2018 4:42 AM PDT) + + + + + + | Component | Value | Ref Range | Performed | Pathologist | | | | | At | Signature | + + + + + + | aPTT, | 33 (H)Comment: Testing | 23 - 32 seconds | EXTERNAL | | | Patient | performed at [facility];[address] | [address] | | | | [address];[place] | | | | | | [address] | | | | + + + + + + + + | Specimen | + + | Blood specimen | | (specimen) | + + + +---------+ + + | Performing | Address | City/State/Zipcode | Phone Number | | Organization | | | | + +---------+ + + | EXTERNAL LAB | | | | + +---------+ + + Protime INR (09/03/2018 4:42 AM PDT) + + + + + [...] | | | | | performed at [facility] | | | | | | [address];[place] | | | | | | [address] | | | | + + + [...] + +---------+ + + Comprehensive Metabolic Panel (09/03/2018 4:42 AM PDT) + + + + + + | Component | Value | Ref Range | Performed | Pathologist | | | | | At | Signature | + + + + + + | Na | 137 | 135 - 145 | EXTERNAL | | | | | mmol/L | LAB | | + + + + + + | K | 4.0 | 3.5 - 4.9 | EXTERNAL | | | | | mmol/L | LAB | | + + + + + + | Cl | 108 | 99 - 109 mmol/L | EXTERNAL | | | | | | LAB | | + + + + + + | CO2 | 21 (L) | 23 - 32 mmol/L | EXTERNAL | | | | | | LAB | | + + + + + + | Anion Gap | 12 | 5 - 20 mmol/L | EXTERNAL | | | | | | LAB | | + + + + + + | Glucose, | 86 | 65 - 99 mg/dL | EXTERNAL | | | Fasting | | | LAB | | + + + + + + | BUN | 16 | 8 - 25 mg/dL | EXTERNAL | | | | | | LAB | | + + + + + + | Creatinine | 1.1 (H) | 0.50 - 1.00 | EXTERNAL | | | | | mg/dL | LAB | | + + + + + + | BUN/Creatin | 15 | | EXTERNAL | | | ine Ratio | | | LAB | | + + + + + + | Calcium | 7.7 (L) | 8.5 - 10.5 | EXTERNAL | | | | | mg/dL | LAB | | + + + + + + | Protein, | 6.2 (L) | 6.3 - 8.2 g/dL | EXTERNAL | | | Total | | | LAB | | + + + + + + | Albumin | 1.8 (L) | 3.6 - 5.0 g/dL | EXTERNAL | | | | | | LAB | | + + + + + + | Globulin | 4.4 | 1.3 - 4.9 g/dL | EXTERNAL | | | | | | LAB | | + + + + + + | A/G Ratio | 0.4 (L) | 1.0 - 2.4 | EXTERNAL | | | | | | LAB | | + + + + + + | Bilirubin | 0.6 | 0.1 - 1.5 mg/dL | EXTERNAL | | | Total | | | LAB | | + + + + + + | ALP, | 184 (H) | 35 - 115 U/L | EXTERNAL | | | External | | | LAB | | + + + + + + | AST | 36 | 10 - 45 U/L | EXTERNAL | | | | | | LAB | | + + + + + + | ALT | 14 | 10 - 65 U/L | EXTERNAL | | | | | | LAB | | + + + + + + | Estimated | 53 (L)Comment: GFR <60: | mL/min/1.73m2 | EXTERNAL | [...] BY | | | | | | 1.210.This eGFR is | | | | | | calculated using the | | | | | | MDRD IDMS traceable | | | | | | equation.Testing | | | | | | performed at [facility], [address] | | | | | | [facility], | | | | | | [place] [address] | | | | + + + [...] + +---------+ + + CBC no Differential (09/02/2018 4:34 AM PDT) + + + + + + | Component | Value | Ref Range | Performed | Pathologist | | | | | At | Signature | + + + + + + | WBC | 4.41 | 3.80 - 11.00 | EXTERNAL | | | | | K/uL | LAB | | + + + + + + | Non- | 2.63 (L) | 3.70 - 5.10 | EXTERNAL | | | Red Blood | | M/uL | LAB | | | Cells | | | | | | Counted | | | | | + + + + + + | Hemoglobin | 8.3 (L) | 11.3 - 15.5 | EXTERNAL | | | | | g/dL | LAB | | + + + + + + | Hematocrit, | 24.7 (L) | 34.0 - 46.0 % | EXTERNAL | | | POC | | | LAB | | + + + + + + | MCV | 94.1 | 80.0 - 100.0 fl | EXTERNAL | | | | | | LAB | | + + + + + + | MCH | 31.6 | 27.0 - 34.0 pg | EXTERNAL | | | | | | LAB | | + + + + + + | MCHC | 33.6 | 32.0 - 35.5 | EXTERNAL | | | | | g/dL | LAB | | + + + + + + | RDW-CV | 55.6 (H) | 37 - 53 fl | EXTERNAL | | | | | | LAB | | + + + + + + | Platelet | 141 (L) | 150 - 400 K/uL | EXTERNAL | | | Count | | | LAB | | | Plasma | | | | | + + + + + + | MPV | 8.9Comment: Testing | fl | EXTERNAL | | | | performed at [facility], [address] | LAB | | | | [address], | | | | | | [place] [address] | | | | + + + + + + + + | Specimen | + + | | + + + +---------+ + + | Performing | Address | City/State/Zipcode | Phone Number | | Organization | | | | + +---------+ + + | EXTERNAL LAB | | | | + +---------+ + + Magnesium (09/02/2018 4:34 AM PDT) + + + + + + | Component | Value | Ref Range | Performed | Pathologist | | | | | At | Signature | + + + + + + | Magnesium | 1.5 (L)Comment: Testing | 1.7 - 2.4 mg/dL | EXTERNAL | | | | performed at [facility], [address] | | LAB | | | | [address] [place], | | | | | | [place] [address] | | | | + + + + + + + + | Specimen | + + | | + + + +---------+ + + | Performing | Address | City/State/Zipcode | Phone Number | | Organization | | | | + +---------+ + + | EXTERNAL LAB | | | | + +---------+ + + Hepatic Function Panel (09/02/2018 4:34 AM PDT) + + + + + + | Component | Value | Ref Range | Performed | Pathologist | | | | | At | Signature | + + + + + + | Protein, | 5.7 (L) | 6.3 - 8.2 g/dL | EXTERNAL | | | Total | | | LAB | | + + + + + + | Albumin | 1.6 (L) | 3.6 - 5.0 g/dL | EXTERNAL | | | | | | LAB | | + + + + + + | Bilirubin | 0.6 | 0.1 - 1.5 mg/dL | EXTERNAL | | | Total | | | LAB | | + + + + + + | Bilirubin | 0.2 | 0.0 - 0.3 mg/dL | EXTERNAL | | | Direct | | | LAB | | + + + + + + | ALP, | 168 (H) | 35 - 115 U/L | EXTERNAL | | | External | | | LAB | | + + + + + + | AST | 38 | 10 - 45 U/L | EXTERNAL | | | | | | LAB | | + + + + + + | ALT | 14Comment: Testing | 10 - 65 U/L | EXTERNAL | | | | performed at [facility], [address] | | LAB | | | | [address], | | | | | | [place] [address] | | | | + + + + + + + + | Specimen | + + | Blood specimen | | (specimen) | + + + +---------+ + + | Performing | Address | City/State/Zipcode | Phone Number | | Organization | | | | + +---------+ + + | EXTERNAL LAB | | | | + +---------+ + + Renal Function Panel (09/02/2018 4:34 AM PDT) + + + + + + | Component | Value | Ref Range | Performed | Pathologist | | | | | At | Signature | + + + + + + | Na | 141 | 135 - 145 | EXTERNAL | | | | | mmol/L | LAB | | + + + + + + | K | 3.5 | 3.5 - 4.9 | EXTERNAL | | | | | mmol/L | LAB | | + + + + + + | Cl | 109 | 99 - 109 mmol/L | EXTERNAL | | | | | | LAB | | + + + + + + | CO2 | 20 (L) | 23 - 32 mmol/L | EXTERNAL | | | | | | LAB | | + + + + + + | Anion Gap | 16 | 5 - 20 mmol/L | EXTERNAL | | | | | | LAB | | + + + + + + | Glucose, | 77 | 65 - 99 mg/dL | EXTERNAL | | | Fasting | | | LAB | | + + + + + + | BUN | 17 | 8 - 25 mg/dL | EXTERNAL | | | | | | LAB | | + + + + + + | Creatinine | 1.2 (H) | 0.50 - 1.00 | EXTERNAL | | | | | mg/dL | LAB | | + + + + + + | Calcium | 7.6 (L) | 8.5 - 10.5 | EXTERNAL | | | | | mg/dL | LAB | | + + + + + + | Albumin | 1.6 (L) | 3.6 - 5.0 g/dL | EXTERNAL | | | | | | LAB | | + + + + + + | PHOSPHORUS | 3.6 | 2.3 - 4.8 mg/dL | EXTERNAL | | | | | | LAB | | + + + + + + | Estimated | 48 (L)Comment: GFR <60: | mL/min/1.73m2 | EXTERNAL | [...] BY | | | | | | 1.210.This eGFR is | | | | | | calculated using the | | | | | | MDRD IDMS traceable | | | | | | equation.Testing | | | | | | performed at [facility], [address] | | | | | | [facility], | | | | | | [place] [address] | | | | + + + [...] + +---------+ + + US Abdomen Limited (09/01/2018 3:05 PM PDT) + + | Specimen | + + | | + + + + + | Impressions | Performed At | + + + | There is diffuse ascites of the abdomen. Large amount of fluid at | | | the right flank. Signed by: Sukhwinder Velarde Isaac Sign Date/Time: | | | 09/01/2018 3:13 PM | | + + + + + + | Narrative | Performed At | + + + | ULTRASOUND ABDOMEN, LIMITED CLINICAL INFORMATION: Abdominal | | | distention, evaluate for ascites. COMPARISON: CT ABDOMEN AND PELVIS | | | WITH CONTRAST (08/25/2018); ECHO OUTSIDE INTERPRETATION (03/07/2017); | | | US GUIDED PARACENTESIS (01/01/2017); PROCEDURE: Evaluation of the | | | gallbladder, if present, common bile duct, liver, and right kidney. | | | FINDINGS: There is diffuse ascites of the abdomen. Large amount of | | | fluid at the right flank. | | + + + + + | Procedure Note | + + | Jermaine, Rad Conversion - 11/19/2018 7:29 PM PDT ULTRASOUND ABDOMEN, LIMITED | | CLINICAL INFORMATION: | | Abdominal distention, evaluate for ascites. | | COMPARISON: | | CT ABDOMEN AND PELVIS WITH CONTRAST (08/25/2018); ECHO OUTSIDE | | INTERPRETATION (03/07/2017); US GUIDED PARACENTESIS (01/01/2017); | | PROCEDURE: | | Evaluation of the gallbladder, if present, common bile duct, liver, and | | right kidney. | | FINDINGS: | | There is diffuse ascites of the abdomen. Large amount of fluid at the | | right flank. | | IMPRESSION: | | There is diffuse ascites of the abdomen. Large amount of fluid at the | | right flank. | | Signed by: Sukhwinder Velarde, Landry | | Sign Date/Time: 09/01/2018 3:13 PM | + + Sodium, Urine, Random (09/01/2018 2:21 PM PDT) + + + + + + | Component | Value | Ref Range | Performed | Pathologist | | | | | At | Signature | + + + + + + | Sodium, | 86Comment: NO NORMAL | mmol/L | EXTERNAL | | | Urine | RANGE ESTABLISHEDTesting | | LAB | | | Random | performed at [facility], [address] | | [address] [facility], | | | | | | [place] [address] | | | | + + + + + + + + | Specimen | + + | Urine specimen | | (specimen) | + + + +---------+ + + | Performing | Address | City/State/Zipcode | Phone Number | | Organization | | | | + +---------+ + + | EXTERNAL LAB | | | | + +---------+ + + Eosinophil Smear, Urine (09/01/2018 2:20 PM PDT) + + + + + + | Component | Value | Ref Range | Performed | Pathologist | | | | | At | Signature | + + + + + + | Eosinophils | NO EOSINOPHILS | % | EXTERNAL | | | , Urine | SEENComment: Testing | | LAB | | | | performed at [facility], [address] | | | | | | [address], | | | | | | [place] [address] | | | | + + + + + + + + | Specimen | + + | | + + + +---------+ + + | Performing | Address | City/State/Zipcode | Phone Number | | Organization | | | | + +---------+ + + | EXTERNAL LAB | | | | + +---------+ + + CBC no Differential (09/01/2018 4:37 AM PDT) + + + + + + | Component | Value | Ref Range | Performed | Pathologist | | | | | At | Signature | + + + + + + | WBC | 5.07 | 3.80 - 11.00 | EXTERNAL | | | | | K/uL | LAB | | + + + + + + | Non- | 2.86 (L) | 3.70 - 5.10 | EXTERNAL | | | Red Blood | | M/uL | LAB | | | Cells | | | | | | Counted | | | | | + + + + + + | Hemoglobin | 9.3 (L) | 11.3 - 15.5 | EXTERNAL | | | | | g/dL | LAB | | + + + + + + | Hematocrit, | 26.9 (L) | 34.0 - 46.0 % | EXTERNAL | | | POC | | | LAB | | + + + + + + | MCV | 94.2 | 80.0 - 100.0 fl | EXTERNAL | | | | | | LAB | | + + + + + + | MCH | 32.5 | 27.0 - 34.0 pg | EXTERNAL | | | | | | LAB | | + + + + + + | MCHC | 34.5 | 32.0 - 35.5 | EXTERNAL | | | | | g/dL | LAB | | + + + + + + | RDW-CV | 55.1 (H) | 37 - 53 fl | EXTERNAL | | | | | | LAB | | + + + + + + | Platelet | 168 | 150 - 400 K/uL | EXTERNAL | | | Count | | | LAB | | | Plasma | | | | | + + + + + + | MPV | 8.6Comment: Testing | fl | EXTERNAL | | | | performed at [facility], [address] | | LAB | | | | [address], | | | | | | [place] [address] | | | | + + + + + + + + | Specimen | + + | | + + + +---------+ + + | Performing | Address | City/State/Zipcode | Phone Number | | Organization | | | | + +---------+ + + | EXTERNAL LAB | | | | + +---------+ + + Magnesium (09/01/2018 4:37 AM PDT) + + + + + + | Component | Value | Ref Range | Performed | Pathologist | | | | | At | Signature | + + + + + + | Magnesium | 1.8Comment: Testing | 1.7 - 2.4 mg/dL | EXTERNAL | | | | performed at [facility], [address] | | LAB | | | | [address], | | | | | | [place] [address] | | | | + + + + + + + + | Specimen | + + | | + + + +---------+ + + | Performing | Address | City/State/Zipcode | Phone Number | | Organization | | | | + +---------+ + + | EXTERNAL LAB | | | | + +---------+ + + Renal Function Panel (09/01/2018 4:37 AM PDT) + + + + + + | Component | Value | Ref Range | Performed | Pathologist | | | | | At | Signature | + + + + + + | Na | 147 (H) | 135 - 145 | EXTERNAL | | | | | mmol/L | LAB | | + + + + + + | K | 3.7 | 3.5 - 4.9 | EXTERNAL | | | | | mmol/L | LAB | | + + + + + + | Cl | 115 (H) | 99 - 109 mmol/L | EXTERNAL | | | | | | LAB | | + + + + + + | CO2 | 22 (L) | 23 - 32 mmol/L | EXTERNAL | | | | | | LAB | | + + + + + + | Anion Gap | 14 | 5 - 20 mmol/L | EXTERNAL | | | | | | LAB | | + + + + + + | Glucose, | 105 (H) | 65 - 99 mg/dL | EXTERNAL | | | Fasting | | | LAB | | + + + + + + | BUN | 16 | 8 - 25 mg/dL | EXTERNAL | | | | | | LAB | | + + + + + + | Creatinine | 1.3 (H) | 0.50 - 1.00 | EXTERNAL | | | | | mg/dL | LAB | | + + + + + + | Calcium | 8.0 (L) | 8.5 - 10.5 | EXTERNAL | | | | | mg/dL | LAB | | + + + + + + | Albumin | 1.7 (L) | 3.6 - 5.0 g/dL | EXTERNAL | | | | | | LAB | | + + + + + + | PHOSPHORUS | 3.4 | 2.3 - 4.8 mg/dL | EXTERNAL | | | | | | LAB | | + + + + + + | Estimated | 44 (L)Comment: GFR <60: | mL/min/1.73m2 | EXTERNAL | [...] BY | | | | | | 1.210.This eGFR is | | | | | | calculated using the | | | | | | MDRD IDMS traceable | | | | | | equation.Testing | | | | | | performed at [facility], [address] | | | | | | [facility], | | | | | | [place] [address] | | | | + + + + + + + + | Specimen | + + | Blood specimen | | (specimen) | + + + +---------+ + + | Performing | Address | City/State/Zipcode | Phone Number | | Organization | | | | + +---------+ + + | EXTERNAL LAB | | | | + +---------+ + + Ammonia (08/31/2018 6:19 PM PDT) + + + + + + | Component | Value | Ref Range | Performed | Pathologist | | | | | At | Signature | + + + + + + | Ammonia | 94 (H)Comment: MARKED | umol/L | EXTERNAL | | | | HEMOLYSISTesting | | LAB | | | | performed at [facility] | | | | | | [address];[place], [place] | | | | | | [address] | | | | + + + + + + + + | Specimen | + + | Blood specimen | | (specimen) | + + + +---------+ + + | Performing | Address | City/State/Zipcode | Phone Number | | Organization | | | | + +---------+ + + | EXTERNAL LAB | | | | + +---------+ + + Renal Function Panel (08/31/2018 6:19 PM PDT) + + + + + + | Component | Value | Ref Range | Performed | Pathologist | | | | | At | Signature | + + + + + + | Na | 146 (H) | 135 - 145 | EXTERNAL | | | | | mmol/L | LAB | | + + + + + + | K | 4.8Comment: MODERATE | 3.5 - 4.9 | EXTERNAL | | | | HEMOLYSIS | mmol/L | LAB | | + + + + + + | Cl | 117 (H) | 99 - 109 mmol/L | EXTERNAL | | | | | | LAB | | + + + + + + | CO2 | 25 | 23 - 32 mmol/L | EXTERNAL | | | | | | LAB | | + + + + + + | Anion Gap | 9 | 5 - 20 mmol/L | EXTERNAL | | | | | | LAB | | + + + + + + | Glucose, | 120 (H) | 65 - 99 mg/dL | EXTERNAL | | | Fasting | | | LAB | | + + + + + + | BUN | 13Comment: MODERATE | 8 - 25 mg/dL | EXTERNAL | | | | HEMOLYSIS | | LAB | | + + + + + + | Creatinine | 1.16 (H) | 0.50 - 1.00 | EXTERNAL | | | | | mg/dL | LAB | | + + + + + + | Calcium | 7.8 (L) | 8.5 - 10.5 | EXTERNAL | | | | | mg/dL | LAB | | + + + + + + | Albumin | 2.4 (L)Comment: MODERATE | 3.6 - 5.0 g/dL | EXTERNAL | | | | HEMOLYSIS | | LAB | | + + + + + + | PHOSPHORUS | 3.5 | 2.3 - 4.8 mg/dL | EXTERNAL | | | | | | LAB | | + + + + + + | Estimated | 50 (L)Comment: GFR <60: | mL/min/1.73m2 | EXTERNAL | [...] BY | | | | | | 1.210.This eGFR is | | | | | | calculated using the | | | | | | MDRD IDMS traceable | | | | | | equation.Testing | | | | | | performed at [facility];[address] | | | | | | [facility];[place], [place] | | | | | | [address] | | | | + + + [...] + + Iron and Iron Binding Capacity (08/31/2018 4:35 AM PDT) + + + + + + | Component | Value | Ref Range | Performed | Pathologist | | | | | At | Signature | + + + + + + | Iron | 34 | 30 - 180 ug/dL | EXTERNAL | | | | | | LAB | | + + + + + + | TIBC | 95 (L) | 260 - 490 ug/dL | EXTERNAL | | | | | | LAB | | + + + + + + | Iron | 36Comment: Testing | 15 - 50 % | EXTERNAL | | | Saturation | performed at [facility], [address] | | LAB | | | | [address], | | | | | | [place] [address] | | | | + + + + + + + + | Specimen | + + | | + + + +---------+ + + | Performing | Address | City/State/Zipcode | Phone Number | | Organization | | | | + +---------+ + + | EXTERNAL LAB | | | | + +---------+ + + Retic Count (08/31/2018 4:35 AM PDT) + + + + + + | Component | Value | Ref Range | Performed | Pathologist | | | | | At | Signature | + + + + + + | % | 2.8 (H)Comment: Testing | 0.4 - 2.7 % | EXTERNAL | | | Reticulocyt | performed at [facility];[address] | | LAB | | | e Count | [facility];[place], [place] | | | | | | [address] | | | | + + + + + + + + | Specimen | + + | | + + + +---------+ + + | Performing | Address | City/State/Zipcode | Phone Number | | Organization | | | | + +---------+ + + | EXTERNAL LAB | | | | + +---------+ + + External Lab: CBC (08/31/2018 4:35 AM PDT) + + + + + + | Component | Value | Ref Range | Performed | Pathologist | | | | | At | Signature | + + + + + + | WBC | 5.20 | 3.80 - 11.00 | EXTERNAL | | | | | K/uL | LAB | | + + + + + + | Non- | 3.25 (L) | 3.70 - 5.10 | EXTERNAL | | | Red Blood | | M/uL | LAB | | | Cells | | | | | | Counted | | | | | + + + + + + | Hemoglobin | 10.3 (L) | 11.3 - 15.5 | EXTERNAL | | | | | g/dL | LAB | | + + + + + + | Hematocrit, | 30.4 (L) | 34.0 - 46.0 % | EXTERNAL | | | POC | | | LAB | | + + + + + + | MCV | 93.6 | 80.0 - 100.0 fl | EXTERNAL | | | | | | LAB | | + + + + + + | MCH | 31.7 | 27.0 - 34.0 pg | EXTERNAL | | | | | | LAB | | + + + + + + | MCHC | 33.8 | 32.0 - 35.5 | EXTERNAL | | | | | g/dL | LAB | | + + + + + + | RDW-CV | 54.3 (H) | 37 - 53 fl | EXTERNAL | | | | | | LAB | | + + + + + + | Platelet | 133 (L) | 150 - 400 K/uL | EXTERNAL | | | Count | | | LAB | | | Plasma | | | | | + + + + + + | MPV | 8.6 | fl | EXTERNAL | | | | | | LAB | | + + + + + + | Differentia | AUTOMATED | | EXTERNAL | | | l Type | | | LAB | | + + + + + + | % Segmented | 55.93 | % | EXTERNAL | | | | | | LAB | | | Neutrophils | | | | | + + + + + + | % | 14.85 | % | EXTERNAL | | | Lymphocytes | | | LAB | | + + + + + + | % Monocytes | 24.01 | % | EXTERNAL | | | | | | LAB | | + + + + + + | % | 4.19 | % | EXTERNAL | | | Eosinophils | | | LAB | | + + + + + + | % Basophils | 1.02 | % | EXTERNAL | | | | | | LAB | | + + + + + + | Absolute | 2.91 | 1.90 - 7.40 | EXTERNAL | | | Segmented | | K/uL | LAB | | | Neutrophils | | | | | + + + + + + | Absolute | 0.77 (L) | 1.00 - 3.90 | EXTERNAL | | | Lymphocytes | | K/uL | LAB | | + + + + + + | Absolute | 1.25 (H) | 0.00 - 0.80 | EXTERNAL | | | Monocytes | | K/uL | LAB | | + + + + + + | Absolute | 0.22 | 0.00 - 0.50 | EXTERNAL | | | Eosinophils | | K/uL | LAB | | + + + + + + | Absolute | 0.05Comment: Testing | 0.00 - 0.10 | EXTERNAL | | | Basophils | performed at [facility], [address] | [address] | LAB | | | | [facility], | | | | | | [place] [address] | | | | + + + + + + + + | Specimen | + + | | + + + +---------+ + + | Performing | Address | City/State/Zipcode | Phone Number | | Organization | | | | + +---------+ + + | EXTERNAL LAB | | | | + +---------+ + + Magnesium (08/31/2018 4:35 AM PDT) + + + + + + | Component | Value | Ref Range | Performed | Pathologist | | | | | At | Signature | + + + + + + | Magnesium | 1.5 (L)Comment: Testing | 1.7 - 2.4 mg/dL | EXTERNAL | | | | performed at [facility], [address] | | LAB | | | | [address], | | | | | | [place] [address] | | | | + + + + + + + + | Specimen | + + | | + + + +---------+ + + | Performing | Address | City/State/Zipcode | Phone Number | | Organization | | | | + +---------+ + + | EXTERNAL LAB | | | | + +---------+ + + Ferritin (08/31/2018 4:35 AM PDT) + + + + + + | Component | Value | Ref Range | Performed | Pathologist | | | | | At | Signature | + + + + + + | Ferritin, | 204 (H)Comment: Testing | 6 - 170 ng/mL | EXTERNAL | | | External | performed at [facility], [address] | | LAB | | | | [address], | | | | | | [place] [address] | | | | + + + + + + + + | Specimen | + + | | + + + +---------+ + + | Performing | Address | City/State/Zipcode | Phone Number | | Organization | | | | + +---------+ + + | EXTERNAL LAB | | | | + +---------+ + + Renal Function Panel (08/31/2018 4:35 AM PDT) + + + + + + | Component | Value | Ref Range | Performed | Pathologist | | | | | At | Signature | + + + + + + | Na | 149 (H) | 135 - 145 | EXTERNAL | | | | | mmol/L | LAB | | + + + + + + | K | 3.7 | 3.5 - 4.9 | EXTERNAL | | | | | mmol/L | LAB | | + + + + + + | Cl | 117 (H) | 99 - 109 mmol/L | EXTERNAL | | | | | | LAB | | + + + + + + | CO2 | 23 | 23 - 32 mmol/L | EXTERNAL | | | | | | LAB | | + + + + + + | Anion Gap | 13 | 5 - 20 mmol/L | EXTERNAL | | | | | | LAB | | + + + + + + | Glucose, | 83 | 65 - 99 mg/dL | EXTERNAL | | | Fasting | | | LAB | | + + + + + + | BUN | 12 | 8 - 25 mg/dL | EXTERNAL | | | | | | LAB | | + + + + + + | Creatinine | 1.2 (H) | 0.50 - 1.00 | EXTERNAL | | | | | mg/dL | LAB | | + + + + + + | Calcium | 9.0 | 8.5 - 10.5 | EXTERNAL | | | | | mg/dL | LAB | | + + + + + + | Albumin | 2.0 (L) | 3.6 - 5.0 g/dL | EXTERNAL | | | | | | LAB | | + + + + + + | PHOSPHORUS | 3.3 | 2.3 - 4.8 mg/dL | EXTERNAL | | | | | | LAB | | + + + + + + | Estimated | 48 (L)Comment: GFR <60: | mL/min/1.73m2 | EXTERNAL | [...] BY | | | | | | 1.210.This eGFR is | | | | | | calculated using the | | | | | | MDRD IDMS traceable | | | | | | equation.Testing | | | | | | performed at [facility], [address] | | | | | | [facility], | | | | | | [place] [address] | | | | + + + [...] + +---------+ + + External Lab: CBC (08/30/2018 4:33 AM PDT) + + + + + + | Component | Value | Ref Range | Performed | Pathologist | | | | | At | Signature | + + + + + + | WBC | 4.80 | 3.80 - 11.00 | EXTERNAL | | | | | K/uL | LAB | | + + + + + + | Non- | 2.92 (L) | 3.70 - 5.10 | EXTERNAL | | | Red Blood | | M/uL | LAB | | | Cells | | | | | | Counted | | | | | + + + + + + | Hemoglobin | 9.2 (L) | 11.3 - 15.5 | EXTERNAL | | | | | g/dL | LAB | | + + + + + + | Hematocrit, | 27.4 (L) | 34.0 - 46.0 % | EXTERNAL | | | POC | | | LAB | | + + + + + + | MCV | 93.8 | 80.0 - 100.0 fl | EXTERNAL | | | | | | LAB | | + + + + + + | MCH | 31.6 | 27.0 - 34.0 pg | EXTERNAL | | | | | | LAB | | + + + + + + | MCHC | 33.7 | 32.0 - 35.5 | EXTERNAL | | | | | g/dL | LAB | | + + + + + + | RDW-CV | 53.4 (H) | 37 - 53 fl | EXTERNAL | | | | | | LAB | | + + + + + + | Platelet | 112 (L) | 150 - 400 K/uL | EXTERNAL | | | Count | | | LAB | | | Plasma | | | | | + + + + + + | MPV | 8.1 | fl | EXTERNAL | | | | | | LAB | | + + + + + + | Differentia | MANUAL | | EXTERNAL | | | l Type | | | LAB | | + + + + + + | Segmented | 62 | % | EXTERNAL | | | Neutrophils | | | LAB | | | Manual | | | | | + + + + + + | % Bands | 3 | % | EXTERNAL | | | | | | LAB | | + + + + + + | Lymphocytes | 13 | % | EXTERNAL | | | Manual | | | LAB | | + + + + + + | Monocytes | 17 | % | EXTERNAL | | | Manual | | | LAB | | + + + + + + | Eosinophils | 5 | % | EXTERNAL | | | Manual | | | LAB | | + + + + + + | Absolute | 2.98 | 1.90 - 7.40 | EXTERNAL | | | Neutrophils | | K/uL | LAB | | + + + + + + | Bands | 0.14 | 0.00 - 0.20 | EXTERNAL | | | Manual | | K/uL | LAB | | + + + + + + | Absolute | 0.62 (L) | 1.00 - 3.90 | EXTERNAL | | | Lymphocytes | | K/uL | LAB | | + + + + + + | Absolute | 0.82 (H) | 0.00 - 0.80 | EXTERNAL | | | Monocytes | | K/uL | LAB | | + + + + + + | Absolute | 0.24 | 0.00 - 0.50 | EXTERNAL | | | Eosinophils | | K/uL | LAB | | + + + + + + | Platelet | DECREASED | | EXTERNAL | | | Estimate | | | LAB | | + + + + + + | RBC | NORMAL PLT MORPHComment: | | EXTERNAL | | | Morphology | NORMAL RBC MORPHTesting | | LAB | | | | performed at [facility] | | | | | [address];[place], [place] | | | | | | [address] | | | | + + + + + + + + | Specimen | + + | Blood specimen | | (specimen) | + + + +---------+ + + | Performing | Address | City/State/Zipcode | Phone Number | | Organization | | | | + +---------+ + + | EXTERNAL LAB | | | | + +---------+ + + Phosphorus (08/30/2018 4:33 AM PDT) + + + + + + | Component | Value | Ref Range | Performed | Pathologist | | | | | At | Signature | + + + + + + | PHOSPHORUS | 2.4Comment: Testing | 2.3 - 4.8 mg/dL | EXTERNAL | | | | performed at [facility], [address] | | LAB | | | | [address], | | | | | | [place] [address] | | | | + + + + + + + + | Specimen | + + | Blood specimen | | (specimen) | + + + +---------+ + + | Performing | Address | City/State/Zipcode | Phone Number | | Organization | | | | + +---------+ + + | EXTERNAL LAB | | | | + +---------+ + + Magnesium (08/30/2018 4:33 AM PDT) + + + + + [...] | | | | | [place] [address] | | | | + + + [...] + +---------+ + + Comprehensive Metabolic Panel (08/30/2018 4:33 AM PDT) + + + + + + | Component | Value | Ref Range | Performed | Pathologist | | | | | At | Signature | + + + + + + | Na | 144 | 135 - 145 | EXTERNAL | | | | | mmol/L | LAB | | + + + + + + | K | 4.2 | 3.5 - 4.9 | EXTERNAL | | | | | mmol/L | LAB | | + + + + + + | Cl | 114 (H) | 99 - 109 mmol/L | EXTERNAL | | | | | | LAB | | + + + + + + | CO2 | 21 (L) | 23 - 32 mmol/L | EXTERNAL | | | | | | LAB | | + + + + + + | Anion Gap | 13 | 5 - 20 mmol/L | EXTERNAL | | | | | | LAB | | + + + + + + | Glucose, | 117 (H) | 65 - 99 mg/dL | EXTERNAL | | | Fasting | | | LAB | | + + + + + + | BUN | 14 | 8 - 25 mg/dL | EXTERNAL | | | | | | LAB | | + + + + + + | Creatinine | 1.2 (H) | 0.50 - 1.00 | EXTERNAL | | | | | mg/dL | LAB | | + + + + + + | BUN/Creatin | 12 | | EXTERNAL | | | ine Ratio | | | LAB | | + + + + + + | Calcium | 8.4 (L) | 8.5 - 10.5 | EXTERNAL | | | | | mg/dL | LAB | | + + + + + + | Protein, | 6.6 | 6.3 - 8.2 g/dL | EXTERNAL | | | Total | | | LAB | | + + + + + + | Albumin | 2.2 (L) | 3.6 - 5.0 g/dL | EXTERNAL | | | | | | LAB | | + + + + + + | Globulin | 4.4 | 1.3 - 4.9 g/dL | EXTERNAL | | | | | | LAB | | + + + + + + | A/G Ratio | 0.5 (L) | 1.0 - 2.4 | EXTERNAL | | | | | | LAB | | + + + + + + | Bilirubin | 0.6 | 0.1 - 1.5 mg/dL | EXTERNAL | | | Total | | | LAB | | + + + + + + | ALP, | 108 | 35 - 115 U/L | EXTERNAL | | | External | | | LAB | | + + + + + + | AST | 29 | 10 - 45 U/L | EXTERNAL | | | | | | LAB | | + + + + + + | ALT | 11 | 10 - 65 U/L | EXTERNAL | | | | | | LAB | | + + + + + + | Estimated | 48 (L)Comment: GFR <60: | mL/min/1.73m2 | EXTERNAL | [...] BY | | | | | | 1.210.This eGFR is | | | | | | calculated using the | | | | | | MDRD IDMT traceable | | | | | | equation.Testing | | | | | | performed at [facility], [address] | | | | | [facility], | | | | | | [place] [address] | | | | + + + + + + + + | Specimen | + + | Blood specimen | | (specimen) | + + + +---------+ + + | Performing | Address | City/State/Zipcode | Phone Number | | Organization | | | | + +---------+ + + | EXTERNAL LAB | | | | + +---------+ + + Potassium (08/29/2018 8:33 PM PDT) + + + + + + | Component | Value | Ref Range | Performed | Pathologist | | | | | At | Signature | + + + + + + | K | 4.1Comment: Testing | 3.5 - 4.9 | EXTERNAL | | | | performed at [facility] [place] | mmol/L | LAB | | | | [address];[place] | | | | | | [id number] | | | | + + + [...] + +---------+ + + Comprehensive Metabolic Panel (08/29/2018 11:06 AM PDT) + + + + + + | Component | Value | Ref Range | Performed | Pathologist | | | | | At | Signature | + + + + + + | Na | 148 (H) | 135 - 145 | EXTERNAL | | | | | mmol/L | LAB | | + + + + + + | K | 3.7 | 3.5 - 4.9 | EXTERNAL | | | | | mmol/L | LAB | | + + + + + + | Cl | 119 (H) | 99 - 109 mmol/L | EXTERNAL | | | | | | LAB | | + + + + + + | CO2 | 23 | 23 - 32 mmol/L | EXTERNAL | | | | | | LAB | | + + + + + + | Anion Gap | 10 | 5 - 20 mmol/L | EXTERNAL | | | | | | LAB | | + + + + + + | Glucose, | 87 | 65 - 99 mg/dL | EXTERNAL | | | Fasting | | | LAB | | + + + + + + | BUN | 12 | 8 - 25 mg/dL | EXTERNAL | | | | | | LAB | | + + + + + + | Creatinine | 0.86 | 0.50 - 1.00 | EXTERNAL | | | | | mg/dL | LAB | | + + + + + + | BUN/Creatin | 14 | | EXTERNAL | | | ine Ratio | | | LAB | | + + + + + + | Calcium | 7.2 (L) | 8.5 - 10.5 | EXTERNAL | | | | | mg/dL | LAB | | + + + + + + | Protein, | 5.4 (L) | 6.3 - 8.2 g/dL | EXTERNAL | | | Total | | | LAB | | + + + + + + | Albumin | 2.2 (L) | 3.6 - 5.0 g/dL | EXTERNAL | | | | | | LAB | | + + + + + + | Globulin | 3.2 | 1.3 - 4.9 g/dL | EXTERNAL | | | | | | LAB | | + + + + + + | A/G Ratio | 0.7 (L) | 1.0 - 2.4 | EXTERNAL | | | | | | LAB | | + + + + + + | Bilirubin | 0.7 | 0.1 - 1.5 mg/dL | EXTERNAL | | | Total | | | LAB | | + + + + + + | ALP, | 86 | 35 - 115 U/L | EXTERNAL | | | External | | | LAB | | + + + + + + | AST | 24 | 10 - 45 U/L | EXTERNAL | | | | | | LAB | | + + + + + + | ALT | <7 (L) | 10 - 65 U/L | EXTERNAL | | | | | | LAB | | + + + + + [...] BY | | | | | | 1.210.This eGFR is | | | | | | calculated using the | | | | | | MDRD IDMS traceable | | | | | | equation.Testing | | | | | | performed at [facility] | | | | | | [facility];[place], [place] | | | | | | [address] | | | | + + + [...] + +---------+ + + External Lab: CBC (08/29/2018 2:36 AM PDT) + + + + + + | Component | Value | Ref Range | Performed | Pathologist | | | | | At | Signature | + + + + + + | WBC | 5.74 | 3.80 - 11.00 | EXTERNAL | | | | | K/uL | LAB | | + + + + + + | Non- | 2.91 (L) | 3.70 - 5.10 | EXTERNAL | | | Red Blood | | M/uL | LAB | | | Cells | | | | | | Counted | | | | | + + + + + + | Hemoglobin | 9.3 (L) | 11.3 - 15.5 | EXTERNAL | | | | | g/dL | LAB | | + + + + + + | Hematocrit, | 27.2 (L) | 34.0 - 46.0 % | EXTERNAL | | | POC | | | LAB | | + + + + + + | MCV | 93.5 | 80.0 - 100.0 fl | EXTERNAL | | | | | | LAB | | + + + + + + | MCH | 31.8 | 27.0 - 34.0 pg | EXTERNAL | | | | | | LAB | | + + + + + + | MCHC | 34.0 | 32.0 - 35.5 | EXTERNAL | | | | | g/dL | LAB | | + + + + + + | RDW-CV | 53.4 (H) | 37 - 53 fl | EXTERNAL | | | | | | LAB | | + + + + + + | Platelet | 107 (L) | 150 - 400 K/uL | EXTERNAL | | | Count | | | LAB | | | Plasma | | | | | + + + + + + | MPV | 8.3 | fl | EXTERNAL | | | | | | LAB | | + + + + + + | Differentia | AUTOMATED | | EXTERNAL | | | l Type | | | LAB | | + + + + + + | % Segmented | 60.97 | % | EXTERNAL | | | | | | LAB | | | Neutrophils | | | | | + + + + + + | % | 12.22 | % | EXTERNAL | | | Lymphocytes | | | LAB | | + + + + + + | % Monocytes | 18.90 | % | EXTERNAL | | | | | | LAB | | + + + + + + | % | 5.60 | % | EXTERNAL | | | Eosinophils | | | LAB | | + + + + + + | % Basophils | 2.31 | % | EXTERNAL | | | | | | LAB | | + + + + + + | Absolute | 3.50 | 1.90 - 7.40 | EXTERNAL | | | Segmented | | K/uL | LAB | | | Neutrophils | | | | | + + + + + + | Absolute | 0.70 (L) | 1.00 - 3.90 | EXTERNAL | | | Lymphocytes | | K/uL | LAB | | + + + + + + | Absolute | 1.08 (H) | 0.00 - 0.80 | EXTERNAL | | | Monocytes | | K/uL | LAB | | + + + + + + | Absolute | 0.32 | 0.00 - 0.50 | EXTERNAL | | | Eosinophils | | K/uL | LAB | | + + + + + + | Absolute | 0.13 (H)Comment: Testing | 0.00 - 0.10 | EXTERNAL | | | Basophils | performed at [facility], [address] | [address] | LAB | | | | [address], | | | | | | [place] [address] | | | | + + + + + + + + | Specimen | + + | Blood specimen | | (specimen) | + + + +---------+ + + | Performing | Address | City/State/Zipcode | Phone Number | | Organization | | | | + +---------+ + + | EXTERNAL LAB | | | | + +---------+ + + Potassium (08/29/2018 2:36 AM PDT) + + + + + + | Component | Value | Ref Range | Performed | Pathologist | | | | | At | Signature | + + + + + + | K | 4.0Comment: Testing | 3.5 - 4.9 | EXTERNAL | | | | performed at [facility], [address] | mmol/L | LAB | | | | [address], | | | | | | [place] [address] | | | | + + + + + + + + | Specimen | + + | Blood specimen | | (specimen) | + + + +---------+ + + | Performing | Address | City/State/Zipcode | Phone Number | | Organization | | | | + +---------+ + + | EXTERNAL LAB | | | | + +---------+ + + Phosphorus (08/29/2018 2:36 AM PDT) + + + + + [...] | | | | | [place] [address] | | | | + + + + + + + + | Specimen | + + | Blood specimen | | (specimen) | + + + +---------+ + + | Performing | Address | City/State/Zipcode | Phone Number | | Organization | | | | + +---------+ + + | EXTERNAL LAB | | | | + +---------+ + + Magnesium (08/29/2018 2:36 AM PDT) + + + + + + | Component | Value | Ref Range | Performed | Pathologist | | | | | At | Signature | + + + + + + | Magnesium | 1.8Comment: Testing | 1.7 - 2.4 mg/dL | EXTERNAL | | | | performed at [facility], [address] | | LAB | | | | [address], | | | | | | [place] [address] | | | | + + + + + + + + | Specimen | + + | Blood specimen | | (specimen) | + + + +---------+ + + | Performing | Address | City/State/Zipcode | Phone Number | | Organization | | | | + +---------+ + + | EXTERNAL LAB | | | | + +---------+ + + Potassium (08/28/2018 10:54 PM PDT) + + + + + + | Component | Value | Ref Range | Performed | Pathologist | | | | | At | Signature | + + + + + + | K | 3.6Comment: Testing | 3.5 - 4.9 | EXTERNAL | | | | performed at [facility];[address] | mmol/L | LAB | | | | [address];[place], [place] | | | | | | [address] | | | | + + + + + + + + | Specimen | + + | Blood specimen | | (specimen) | + + + +---------+ + + | Performing | Address | City/State/Zipcode | Phone Number | | Organization | | | | + +---------+ + + | EXTERNAL LAB | | | | + +---------+ + + Magnesium (08/28/2018 10:54 PM PDT) + + + + + + | Component | Value | Ref Range | Performed | Pathologist | | | | | At | Signature | + + + + + + | Magnesium | 1.8Comment: Testing | 1.7 - 2.4 mg/dL | EXTERNAL | | | | performed at [facility];[address] | | LAB | | | | [address];[place] | | | | | | [address] | | | | + + + + + + + + | Specimen | + + | Blood specimen | | (specimen) | + + + +---------+ + + | Performing | Address | City/State/Zipcode | Phone Number | | Organization | | | | + +---------+ + + | EXTERNAL LAB | | | | + +---------+ + + Magnesium (08/28/2018 6:12 PM PDT) + + + + + + | Component | Value | Ref Range | Performed | Pathologist | | | | | At | Signature | + + + + + + | Magnesium | 1.6 (L)Comment: Testing | 1.7 - 2.4 mg/dL | EXTERNAL | | | | performed at [facility];[address] | | LAB | | | | [address];[place], [place] | | | | | | [address] | | | | + + + [...] +---------+ + + XR Chest 1 Vw (08/28/2018 12:51 PM PDT) + + | Specimen | + + | | + + + + + | Impressions | Performed At | + + + | 1. Low lung volumes with pulmonary vascular prominence 2. | | | Interstitial prominence with perihilar and bibasilar opacities that | | | may represent atelectasis and/or edema Signed by: Sukhwinder Jones, | | | Julio Sign Date/Time: 08/28/2018 1:03 PM | | + + + + + + | Narrative | Performed At | + + + | CHEST ONE VIEW CLINICAL INFORMATION: Respiratory failure. | | | COMPARISON: ECHO OUTSIDE INTERPRETATION (03/07/2017); XR CHEST PA AND | | | LATERAL (01/03/2017); CT CHEST WO CONTRAST (01/01/2017); FINDINGS: | | | AP chest demonstrates low lung volumes. There is pulmonary vascular | | | prominence. Perihilar and bibasilar patchy opacities noted with | | | interstitial prominence. No definite pleural effusions. | | + + + + + | Procedure Note | + + | Jermaine, Rad Conversion - 11/19/2018 7:29 PM PDT CHEST ONE VIEW | | CLINICAL INFORMATION: | | Respiratory failure. | | COMPARISON: | | ECHO OUTSIDE INTERPRETATION (03/07/2017); XR CHEST PA AND LATERAL | | (01/03/2017); CT CHEST WO CONTRAST (01/01/2017); | | FINDINGS: | | AP chest demonstrates low lung volumes. There is pulmonary vascular | | prominence. Perihilar and bibasilar patchy opacities noted with | | interstitial prominence. No definite pleural effusions. | | IMPRESSION: | | 1. Low lung volumes with pulmonary vascular prominence | | 2. Interstitial prominence with perihilar and bibasilar opacities that | | may represent atelectasis and/or edema | | Signed by: Sukhwinder Jones Jayson | | Sign Date/Time: 08/28/2018 1:03 PM | + + External Lab: CBC (08/28/2018 4:29 AM PDT) + + + + + + | Component | Value | Ref Range | Performed | Pathologist | | | | | At | Signature | + + + + + + | WBC | 6.06 | 3.80 - 11.00 | EXTERNAL | | | | | K/uL | LAB | | + + + + + + | Non- | 3.10 (L) | 3.70 - 5.10 | EXTERNAL | | | Red Blood | | M/uL | LAB | | | Cells | | | | | | Counted | | | | | + + + + + + | Hemoglobin | 9.7 (L) | 11.3 - 15.5 | EXTERNAL | | | | | g/dL | LAB | | + + + + + + | Hematocrit, | 28.4 (L) | 34.0 - 46.0 % | EXTERNAL | | | POC | | | LAB | | + + + + + + | MCV | 91.5 | 80.0 - 100.0 fl | EXTERNAL | | | | | | LAB | | + + + + + + | MCH | 31.3 | 27.0 - 34.0 pg | EXTERNAL | | | | | | LAB | | + + + + + + | MCHC | 34.2 | 32.0 - 35.5 | EXTERNAL | | | | | g/dL | LAB | | + + + + + + | RDW-CV | 52.9 | 37 - 53 fl | EXTERNAL | | | | | | LAB | | + + + + + + | Platelet | 94 (L) | 150 - 400 K/uL | EXTERNAL | | | Count | | | LAB | | | Plasma | | | | | + + + + + + | MPV | 7.9 | fl | EXTERNAL | | | | | | LAB | | + + + + + + | Differentia | AUTOMATED | | EXTERNAL | | | l Type | | | LAB | | + + + + + + | % Segmented | 64.25 | % | EXTERNAL | | | | | | LAB | | | Neutrophils | | | | | + + + + + + | % | 11.45 | % | EXTERNAL | | | Lymphocytes | | | LAB | | + + + + + + | % Monocytes | 19.16 | % | EXTERNAL | | | | | | LAB | | + + + + + + | % | 4.75 | % | EXTERNAL | | | Eosinophils | | | LAB | | + + + + + + | % Basophils | 0.39 | % | EXTERNAL | | | | | | LAB | | + + + + + + | Absolute | 3.89 | 1.90 - 7.40 | EXTERNAL | | | Segmented | | K/uL | LAB | | | Neutrophils | | | | | + + + + + + | Absolute | 0.69 (L) | 1.00 - 3.90 | EXTERNAL | | | Lymphocytes | | K/uL | LAB | | + + + + + + | Absolute | 1.16 (H) | 0.00 - 0.80 | EXTERNAL | | | Monocytes | | K/uL | LAB | | + + + + + + | Absolute | 0.29 | 0.00 - 0.50 | EXTERNAL | | | Eosinophils | | K/uL | LAB | | + + + + + + | Absolute | 0.02Comment: Testing | 0.00 - 0.10 | EXTERNAL | | | Basophils | performed at [facility];[address] | [address] | LAB | | | | [address];[place] | | | | | | [address] | | | | + + + + + + + + | Specimen | + + | Blood specimen | | (specimen) | + + + +---------+ + + | Performing | Address | City/State/Zipcode | Phone Number | | Organization | | | | + +---------+ + + | EXTERNAL LAB | | | | + +---------+ + + Phosphorus (08/28/2018 4:29 AM PDT) + + + + + + | Component | Value | Ref Range | Performed | Pathologist | | | | | At | Signature | + + + + + + | PHOSPHORUS | 3.3Comment: Testing | 2.3 - 4.8 mg/dL | EXTERNAL | | | | performed at [facility], [address] | | LAB | | | | [address], | | | | | | [place] [address] | | | | + + + + + + + + | Specimen | + + | Blood specimen | | (specimen) | + + + +---------+ + + | Performing | Address | City/State/Zipcode | Phone Number | | Organization | | | | + +---------+ + + | EXTERNAL LAB | | | | + +---------+ + + Magnesium (08/28/2018 4:29 AM PDT) + + + + + + | Component | Value | Ref Range | Performed | Pathologist | | | | | At | Signature | + + + + + + | Magnesium | 1.5 (L)Comment: Testing | 1.7 - 2.4 mg/dL | EXTERNAL | | | | performed at [facility], [address] | | LAB | | | | [address], | | | | | | [place] [address] | | | | + + + [...] + +---------+ + + Comprehensive Metabolic Panel (08/28/2018 4:29 AM PDT) + + + + + + | Component | Value | Ref Range | Performed | Pathologist | | | | | At | Signature | + + + + + + | Na | 144 | 135 - 145 | EXTERNAL | | | | | mmol/L | LAB | | + + + + + + | K | 3.3 (L) | 3.5 - 4.9 | EXTERNAL | | | | | mmol/L | LAB | | + + + + + + | Cl | 110 (H) | 99 - 109 mmol/L | EXTERNAL | | | | | | LAB | | + + + + + + | CO2 | 22 (L) | 23 - 32 mmol/L | EXTERNAL | | | | | | LAB | | + + + + + + | Anion Gap | 15 | 5 - 20 mmol/L | EXTERNAL | | | | | | LAB | | + + + + + + | Glucose, | 92 | 65 - 99 mg/dL | EXTERNAL | | | Fasting | | | LAB | | + + + + + + | BUN | 12 | 8 - 25 mg/dL | EXTERNAL | | | | | | LAB | | + + + + + + | Creatinine | 1.0 | 0.50 - 1.00 | EXTERNAL | | | | | mg/dL | LAB | | + + + + + + | BUN/Creatin | 12 | | EXTERNAL | | | ine Ratio | | | LAB | | + + + + + + | Calcium | 7.7 (L) | 8.5 - 10.5 | EXTERNAL | | | | | mg/dL | LAB | | + + + + + + | Protein, | 5.9 (L) | 6.3 - 8.2 g/dL | EXTERNAL | | | Total | | | LAB | | + + + + + + | Albumin | 1.3 (L) | 3.6 - 5.0 g/dL | EXTERNAL | | | | | | LAB | | + + + + + + | Globulin | 4.6 | 1.3 - 4.9 g/dL | EXTERNAL | | | | | | LAB | | + + + + + + | A/G Ratio | 0.3 (L) | 1.0 - 2.4 | EXTERNAL | | | | | | LAB | | + + + + + + | Bilirubin | 0.6 | 0.1 - 1.5 mg/dL | EXTERNAL | | | Total | | | LAB | | + + + + + + | ALP, | 105 | 35 - 115 U/L | EXTERNAL | | | External | | | LAB | | + + + + + + | AST | 29 | 10 - 45 U/L | EXTERNAL | | | | | | LAB | | + + + + + + | ALT | 10 | 10 - 65 U/L | EXTERNAL | | | | | | LAB | | + + + + + + | Estimated | 59 (L)Comment: GFR <60: | mL/min/1.73m2 | EXTERNAL | [...] BY | | | | | | 1.210.This eGFR is | | | | | | calculated using the | | | | | | MDRD IDMS traceable | | | | | | equation.Testing | | | | | | performed at [facility], [address] | | | | | | [facility], | | | | | | [place] [address] | | | | + + + [...] + +---------+ + + External Lab: CBC (08/27/2018 5:00 AM PDT) + + + + + + | Component | Value | Ref Range | Performed | Pathologist | | | | | At | Signature | + + + + + + | WBC | 7.25 | 3.80 - 11.00 | EXTERNAL | | | | | K/uL | LAB | | + + + + + + | Non- | 3.17 (L) | 3.70 - 5.10 | EXTERNAL | | | Red Blood | | M/uL | LAB | | | Cells | | | | | | Counted | | | | | + + + + + + | Hemoglobin | 10.2 (L) | 11.3 - 15.5 | EXTERNAL | | | | | g/dL | LAB | | + + + + + + | Hematocrit, | 29.1 (L) | 34.0 - 46.0 % | EXTERNAL | | | POC | | | LAB | | + + + + + + | MCV | 91.9 | 80.0 - 100.0 fl | EXTERNAL | | | | | | LAB | | + + + + + + | MCH | 32.3 | 27.0 - 34.0 pg | EXTERNAL | | | | | | LAB | | + + + + + + | MCHC | 35.1 | 32.0 - 35.5 | EXTERNAL | | | | | g/dL | LAB | | + + + + + + | RDW-CV | 52.5 | 37 - 53 fl | EXTERNAL | | | | | | LAB | | + + + + + + | Platelet | 82 (L) | 150 - 400 K/uL | EXTERNAL | | | Count | | | LAB | | | Plasma | | | | | + + + + + + | MPV | 8.0 | fl | EXTERNAL | | | | | | LAB | | + + + + + + | Differentia | AUTOMATED | | EXTERNAL | | | l Type | | | LAB | | + + + + + + | % Segmented | 70.90 | % | EXTERNAL | | | | | | LAB | | | Neutrophils | | | | | + + + + + + | % | 7.72 | % | EXTERNAL | | | Lymphocytes | | | LAB | | + + + + + + | % Monocytes | 15.87 | % | EXTERNAL | | | | | | LAB | | + + + + + + | % | 4.27 | % | EXTERNAL | | | Eosinophils | | | LAB | | + + + + + + | % Basophils | 1.24 | % | EXTERNAL | | | | | | LAB | | + + + + + + | Absolute | 5.14 | 1.90 - 7.40 | EXTERNAL | | | Segmented | | K/uL | LAB | | | Neutrophils | | | | | + + + + + + | Absolute | 0.56 (L) | 1.00 - 3.90 | EXTERNAL | | | Lymphocytes | | K/uL | LAB | | + + + + + + | Absolute | 1.15 (H) | 0.00 - 0.80 | EXTERNAL | | | Monocytes | | K/uL | LAB | | + + + + + + | Absolute | 0.31 | 0.00 - 0.50 | EXTERNAL | | | Eosinophils | | K/uL | LAB | | + + + + + + | Absolute | 0.09Comment: Testing | 0.00 - 0.10 | EXTERNAL | | | Basophils | performed at [facility];[address] | [address] | LAB | | | | [address];[place], [place] | | | | | | [address] | | | | + + + + + + + + | Specimen | + + | Blood specimen | | (specimen) | + + + +---------+ + + | Performing | Address | City/State/Zipcode | Phone Number | | Organization | | | | + +---------+ + + | EXTERNAL LAB | | | | + +---------+ + + Phosphorus (08/27/2018 5:00 AM PDT) + + + + + + | Component | Value | Ref Range | Performed | Pathologist | | | | | At | Signature | + + + + + + | PHOSPHORUS | 3.2Comment: Testing | 2.3 - 4.8 mg/dL | EXTERNAL | | | | performed at [facility], [address] | | LAB | | | | [address], | | | | | | [place] [address] | | | | + + + + + + + + | Specimen | + + | Blood specimen | | (specimen) | + + + +---------+ + + | Performing | Address | City/State/Zipcode | Phone Number | | Organization | | | | + +---------+ + + | EXTERNAL LAB | | | | + +---------+ + + Magnesium (08/27/2018 5:00 AM PDT) + + + + + + | Component | Value | Ref Range | Performed | Pathologist | | | | | At | Signature | + + + + + + | Magnesium | 1.6 (L)Comment: Testing | 1.7 - 2.4 mg/dL | EXTERNAL | | | | performed at [facility], [address] | | LAB | | | | [address], | | | | | | [place] [address] | | | | + + + [...] + +---------+ + + Comprehensive Metabolic Panel (08/27/2018 5:00 AM PDT) + + + + + + | Component | Value | Ref Range | Performed | Pathologist | | | | | At | Signature | + + + + + + | Na | 140 | 135 - 145 | EXTERNAL | | | | | mmol/L | LAB | | + + + + + + | K | 3.2 (L) | 3.5 - 4.9 | EXTERNAL | | | | | mmol/L | LAB | | + + + + + + | Cl | 107 | 99 - 109 mmol/L | EXTERNAL | | | | | | LAB | | + + + + + + | CO2 | 24 | 23 - 32 mmol/L | EXTERNAL | | | | | | LAB | | + + + + + + | Anion Gap | 12 | 5 - 20 mmol/L | EXTERNAL | | | | | | LAB | | + + + + + + | Glucose, | 110 (H) | 65 - 99 mg/dL | EXTERNAL | | | Fasting | | | LAB | | + + + + + + | BUN | 11 | 8 - 25 mg/dL | EXTERNAL | | | | | | LAB | | + + + + + + | Creatinine | 0.8 | 0.50 - 1.00 | EXTERNAL | | | | | mg/dL | LAB | | + + + + + + | BUN/Creatin | 14 | | EXTERNAL | | | ine Ratio | | | LAB | | + + + + + + | Calcium | 7.8 (L) | 8.5 - 10.5 | EXTERNAL | | | | | mg/dL | LAB | | + + + + + + | Protein, | 6.1 (L) | 6.3 - 8.2 g/dL | EXTERNAL | | | Total | | | LAB | | + + + + + + | Albumin | 1.4 (L) | 3.6 - 5.0 g/dL | EXTERNAL | | | | | | LAB | | + + + + + + | Globulin | 4.7 | 1.3 - 4.9 g/dL | EXTERNAL | | | | | | LAB | | + + + + + + | A/G Ratio | 0.3 (L) | 1.0 - 2.4 | EXTERNAL | | | | | | LAB | | + + + + + + | Bilirubin | 0.8 | 0.1 - 1.5 mg/dL | EXTERNAL | | | Total | | | LAB | | + + + + + + | ALP, | 99 | 35 - 115 U/L | EXTERNAL | | | External | | | LAB | | + + + + + + | AST | 30 | 10 - 45 U/L | EXTERNAL | | | | | | LAB | | + + + + + + | ALT | 8 (L) | 10 - 65 U/L | EXTERNAL | | | | | | LAB | | + + + + + [...] BY | | | | | | 1.210.This eGFR is | | | | | | calculated using the | | | | | | MDRD IDMS traceable | | | | | | equation.Testing | | | | | | performed at [facility], [address] | | | | | | [facility], | | | | | | [place] [address] | | | | + + + + + + + + | Specimen | + + | Blood specimen | | (specimen) | + + + +---------+ + + | Performing | Address | City/State/Zipcode | Phone Number | | Organization | | | | + +---------+ + + | EXTERNAL LAB | | | | + +---------+ + + Endoscopy Procedures (08/26/2018 5:27 PM PDT) + + | Specimen | + + | | + + + + + | Narrative | Performed At | + + + | Historically converted procedure from [facility] Epic environment | EXTERNAL LAB | | [facility] GI | | | | | | Patient Name: Shaila Son Procedure Date: | | | 08/26/2018 5:27 PM | | | Date of : 1970 | | | Note Status: Finalized Attending MD: Mitchell Stewart IV , | | | Instrument Name: [id number] Gastroscope | | | | | | Procedure Type: Upper GI endoscopy | | | Indications: Coffee-ground emesis, Ongoing alcoholism, | | | limited coffee-ground emesis, | | | alcohol withdrawals, has previously | | | voiced no interest in alcohol rehab Medicines: | | | Monitored Anesthesia Care, See the Anesthesia note for | | | documentation of the administered medications | | | Complications: No immediate complications. | | | | | | Procedure: Pre-Anesthesia Assessment: - | | | Prior to the procedure, a History and Physical was performed, and | | | patient medications and allergies were reviewed. The patient's | | | tolerance of previous anesthesia was also reviewed. The risks | | | and benefits of the procedure and the sedation options and | | | risks were discussed with the patient. All questions were | | | answered, and informed consent was obtained. Prior | | | Anticoagulants: The patient has taken no previous anticoagulant or | | | antiplatelet agents. ASA Grade Assessment: III - A patient with | | | severe systemic disease. After reviewing the risks and | | | benefits, the patient was deemed in satisfactory condition to | | | undergo the procedure. After obtaining informed consent, the | | | endoscope was passed under direct vision. Throughout the | | | procedure, the patient's blood pressure, pulse, and oxygen | | | saturations were monitored continuously. The Endoscope was | | | introduced through the mouth, and advanced to the third part of | | | duodenum. The upper GI endoscopy was accomplished without | | | difficulty. The patient tolerated the procedure well. | | | | | | Estimated Blood Loss: | | | Estimated blood loss: none. Findings: The Z-line was regular | | | and was found 39 cm from the incisors. The examined esophagus | | | was normal. Severe, diffuse portal hypertensive gastropathy | | | was found in the gastric fundus and in the gastric body. | | | One non-bleeding superficial gastric ulcer with no stigmata of | | | bleeding was found on the greater curvature of the gastric | | | antrum. The lesion was 3 mm in largest dimension. The | | | examined duodenum was normal. Rather pronounced camara-red | | | portal gastropathy involving the majority of the fundus and | | | gastric body. No visible blood in the stomach. Small | | | superficial clean-based ulceration in the antrum without any stigmata | | | suggesting bleeding. No esophageal or gastric varices seen. | | | No evidence of recurrent major bleeding evident. Suspect her | | | limited coffee-ground emesis related to the portal | | | hypertensive gastropathy. | | | | | | Impression: - Z-line regular, 39 cm from the incisors. | | | - Normal esophagus. - Portal hypertensive | | | gastropathy. - Non-bleeding gastric ulcer with no stigmata of | | | bleeding. - Normal examined duodenum. - Rather | | | pronounced camara-red portal gastropathy involving the majority | | | of the fundus and gastric body. No visible blood in the stomach. | | | Small superficial clean-based ulceration in the antrum | | | without any stigmata suggesting bleeding. No esophageal or | | | gastric varices seen. No evidence of recurrent major bleeding | | | evident. Suspect her limited coffee-ground emesis related to | | | the portal hypertensive gastropathy. - No specimens | | | collected. | | | | | | Recommendation: - [facility] to [facility] for [facility] | | | care. - Resume previous diet. - Continue present | | | medications. - Should continue on PPI therapy for at least 8 | | | weeks due to the ulceration present. - Octreotide | | | could be stopped in the morning and patient observed since | | | suspect the limited hematemesis was more related to repeated vomiting. | | | - Management of alcoholism withdrawal syndrome would be the | | | primary goal at this point. Should investigate further but | | | patient has voiced no interest in rehab previously. - | | | The findings and recommendations were discussed with the patient's | | | family. - I spoke with the patient's brother Meño by | | | phone regarding findings on EGD post procedure. | | | | | | Mitchell Espino | | | Pat ELIZABETH, 08/26/2018 5:55:33 PM This report has been signed | | | electronically. Note Initiated On: 08/26/2018 5:27 PM Number of | | | Addenda: 0 [facility] - Endoscopy | | | Services | | + + + + +---------+ + + | Performing | Address | City/State/Zipcode | Phone Number | | Organization | | | | + +---------+ + + | EXTERNAL LAB | | | | + +---------+ + + Magnesium (08/26/2018 11:37 AM PDT) + + + + + + | Component | Value | Ref Range | Performed | Pathologist | | | | | At | Signature | + + + + + + | Magnesium | 1.7Comment: Testing | 1.7 - 2.4 mg/dL | EXTERNAL | | | | performed at [facility] [place] | [place] | | | | [address];[place] | | | | | | [id number] | | | | + + + + + + + + | Specimen | + + | Blood specimen | | (specimen) | + + + +---------+ + + | Performing | Address | City/State/Zipcode | Phone Number | | Organization | | | | + +---------+ + + | EXTERNAL LAB | | | | + +---------+ + + XR Ankle Right 3 + Vw (08/26/2018 8:33 AM PDT) + + | Specimen | + + | | + + + + + | Impressions | Performed At | + + + | Healing fractures involving the distal fibula and tibia. Signed by: | | | Sukhwinder Ya, Shaun Sign Date/Time: 08/26/2018 8:41 AM | | + + + + + + | Narrative | Performed At | + + + | RIGHT ANKLE THREE VIEWS CLINICAL INFORMATION: Ankle injury. | | | COMPARISON: None FINDINGS: There is soft tissue swelling at the | | | ankle. There is oblique, mildly displaced fracture involving the | | | distal fibula. There is some associated callus formation. There | | | is fracture involving the distal tibia with associated callus | | | formation. The ankle mortise is symmetric. Mild degenerative | | | changes are present at the ankle joint. | | + + + + + | Procedure Note | + + | Edgardo Dean Conversion - 11/19/2018 7:29 PM PDT RIGHT ANKLE THREE VIEWS | | CLINICAL INFORMATION: | | Ankle injury. | | COMPARISON: | | None | | FINDINGS: | | There is soft tissue swelling at the ankle. There is oblique, mildly | | displaced fracture involving the distal fibula. There is some | | associated callus formation. There is fracture involving the distal | | tibia with associated callus formation. The ankle mortise is | | symmetric. Mild degenerative changes are present at the ankle joint. | | IMPRESSION: | | Healing fractures involving the distal fibula and tibia. | | Signed by: Sukhwinder Ya Cameron | | Sign Date/Time: 08/26/2018 8:41 AM | + + Hemoglobin and Hematocrit (08/26/2018 8:06 AM PDT) + + + + + + | Component | Value | Ref Range | Performed | Pathologist | | | | | At | Signature | + + + + + + | Hemoglobin | 9.4 (L) | 11.3 - 15.5 | EXTERNAL | | | | | g/dL | LAB | | + + + + + + | Hematocrit, | 27.9 (L)Comment: Testing | 34.0 - 46.0 % | EXTERNAL | | | POC | performed at [facility] | | LAB | | | | [address];[place] | | | | | | [address] | | | | + + + + + + + + | Specimen | + + | | + + + +---------+ + + | Performing | Address | City/State/Zipcode | Phone Number | | Organization | | | | + +---------+ + + | EXTERNAL LAB | | | | + +---------+ + + Potassium (08/26/2018 7:01 AM PDT) + + + + + + | Component | Value | Ref Range | Performed | Pathologist | | | | | At | Signature | + + + + + + | K | 3.9Comment: Testing | 3.5 - 4.9 | EXTERNAL | | | | performed at [facility];[address] | mmol/L | LAB | | | | [address];[place] | | | | | | [address] | | | | + + + + + + + + | Specimen | + + | Blood specimen | | (specimen) | + + + +---------+ + + | Performing | Address | City/State/Zipcode | Phone Number | | Organization | | | | + +---------+ + + | EXTERNAL LAB | | | | + +---------+ + + Magnesium (08/26/2018 7:01 AM PDT) + + + + + + | Component | Value | Ref Range | Performed | Pathologist | | | | | At | Signature | + + + + + + | Magnesium | 1.6 (L)Comment: Testing | 1.7 - 2.4 mg/dL | EXTERNAL | | | | performed at [facility];[address] | | LAB | | | | [address];[place], [place] | | | | | | [address] | | | | + + + + + + + + | Specimen | + + | Blood specimen | | (specimen) | + + + +---------+ + + | Performing | Address | City/State/Zipcode | Phone Number | | Organization | | | | + +---------+ + + | EXTERNAL LAB | | | | + +---------+ + + Potassium (08/26/2018 2:32 AM PDT) + + + + + + | Component | Value | Ref Range | Performed | Pathologist | | | | | At | Signature | + + + + + + | K | 3.7Comment: Testing | 3.5 - 4.9 | EXTERNAL | | | | performed at [facility];[address] | mmol/L | LAB | | | | [address];[place] | | | | | | [address] | | | | + + + + + + + + | Specimen | + + | Blood specimen | | (specimen) | + + + +---------+ + + | Performing | Address | City/State/Zipcode | Phone Number | | Organization | | | | + +---------+ + + | EXTERNAL LAB | | | | + +---------+ + + Magnesium (08/26/2018 2:32 AM PDT) + + + + + + | Component | Value | Ref Range | Performed | Pathologist | | | | | At | Signature | + + + + + + | Magnesium | 1.4 (L)Comment: Testing | 1.7 - 2.4 mg/dL | EXTERNAL | | | | performed at [facility];[address] | | LAB | | | | [address] [facility];[place], [place] | | | | | | [address] | | | | + + + + + + + + | Specimen | + + | Blood specimen | | (specimen) | + + + +---------+ + + | Performing | Address | City/State/Zipcode | Phone Number | | Organization | | | | + +---------+ + + | EXTERNAL LAB | | | | + +---------+ + + PTT (08/26/2018 2:31 AM PDT) + + + + + + | Component | Value | Ref Range | Performed | Pathologist | | | | | At | Signature | + + + + + + | aPTT, | 33 (H)Comment: Testing | 23 - 32 seconds | EXTERNAL | | | Patient | performed at [facility] | | LAB | | | | [address];[place] | | | | | | [address] | | | | + + + + + + + + | Specimen | + + | Blood specimen | | (specimen) | + + + +---------+ + + | Performing | Address | City/State/Zipcode | Phone Number | | Organization | | | | + +---------+ + + | EXTERNAL LAB | | | | + +---------+ + + Protime INR (08/26/2018 2:31 AM PDT) + + + + + [...] | | | | | performed at [facility];[address] | | | | | | [facility];[place], [place] | | | | | | [address] | | | | + + + [...] + +---------+ + + External Lab: CBC (08/26/2018 2:31 AM PDT) + + + + + + | Component | Value | Ref Range | Performed | Pathologist | | | | | At | Signature | + + + + + + | WBC | 7.25 | 3.80 - 11.00 | EXTERNAL | | | | | K/uL | LAB | | + + + + + + | Non- | 3.09 (L) | 3.70 - 5.10 | EXTERNAL | | | Red Blood | | M/uL | LAB | | | Cells | | | | | | Counted | | | | | + + + + + + | Hemoglobin | 9.9 (L) | 11.3 - 15.5 | EXTERNAL | | | | | g/dL | LAB | | + + + + + + | Hematocrit, | 29.1 (L) | 34.0 - 46.0 % | EXTERNAL | | | POC | | | LAB | | + + + + + + | MCV | 94.1 | 80.0 - 100.0 fl | EXTERNAL | | | | | | LAB | | + + + + + + | MCH | 31.9 | 27.0 - 34.0 pg | EXTERNAL | | | | | | LAB | | + + + + + + | MCHC | 33.9 | 32.0 - 35.5 | EXTERNAL | | | | | g/dL | LAB | | + + + + + + | RDW-CV | 53.4 (H) | 37 - 53 fl | EXTERNAL | | | | | | LAB | | + + + + + + | Platelet | 60 (L) | 150 - 400 K/uL | EXTERNAL | | | Count | | | LAB | | | Plasma | | | | | + + + + + + | MPV | 8.3 | fl | EXTERNAL | | | | | | LAB | | + + + + + + | Differentia | AUTOMATED | | EXTERNAL | | | l Type | | | LAB | | + + + + + + | % Segmented | 83.70 | % | EXTERNAL | | | | | | LAB | | | Neutrophils | | | | | + + + + + + | % | 4.05 | % | EXTERNAL | | | Lymphocytes | | | LAB | | + + + + + + | % Monocytes | 11.40 | % | EXTERNAL | | | | | | LAB | | + + + + + + | % | 0.29 | % | EXTERNAL | | | Eosinophils | | | LAB | | + + + + + + | % Basophils | 0.56 | % | EXTERNAL | | | | | | LAB | | + + + + + + | Absolute | 6.07 | 1.90 - 7.40 | EXTERNAL | | | Segmented | | K/uL | LAB | | | Neutrophils | | | | | + + + + + + | Absolute | 0.29 (L) | 1.00 - 3.90 | EXTERNAL | | | Lymphocytes | | K/uL | LAB | | + + + + + + | Absolute | 0.83 (H) | 0.00 - 0.80 | EXTERNAL | | | Monocytes | | K/uL | LAB | | + + + + + + | Absolute | 0.02 | 0.00 - 0.50 | EXTERNAL | | | Eosinophils | | K/uL | LAB | | + + + + + + | Absolute | 0.04Comment: Testing | 0.00 - 0.10 | EXTERNAL | | | Basophils | performed at [facility];[address] | K/uL | LAB | | | | [address];[place], [place] | | | | | | [address] | | | | + + + + + + + + | Specimen | + + | Blood specimen | | (specimen) | + + + +---------+ + + | Performing | Address | City/State/Zipcode | Phone Number | | Organization | | | | + +---------+ + + | EXTERNAL LAB | | | | + +---------+ + + TSH (08/26/2018 2:31 AM PDT) + + + + + + | Component | Value | Ref Range | Performed | Pathologist | | | | | At | Signature | + + + + + + | TSH | 1.120Comment: Testing | 0.450 - 5.100 | EXTERNAL | | | | performed at [facility], [address] | uIU/mL | LAB | | | | [address], | | | | | | [place] [address] | | | | + + + + + + + + | Specimen | + + | Blood specimen | | (specimen) | + + + +---------+ + + | Performing | Address | City/State/Zipcode | Phone Number | | Organization | | | | + +---------+ + + | EXTERNAL LAB | | | | + +---------+ + + Phosphorus (08/26/2018 2:31 AM PDT) + + + + + + | Component | Value | Ref Range | Performed | Pathologist | | | | | At | Signature | + + + + + + | PHOSPHORUS | 3.7Comment: Testing | 2.3 - 4.8 mg/dL | EXTERNAL | | | | performed at [facility], [address] | | LAB | | | | [address], | | | | | | [place] [address] | | | | + + + [...] + +---------+ + + Comprehensive Metabolic Panel (08/26/2018 2:31 AM PDT) + + + + + + | Component | Value | Ref Range | Performed | Pathologist | | | | | At | Signature | + + + + + + | Na | 137 | 135 - 145 | EXTERNAL | | | | | mmol/L | LAB | | + + + + + + | K | 3.8 | 3.5 - 4.9 | EXTERNAL | | | | | mmol/L | LAB | | + + + + + + | Cl | 104 | 99 - 109 mmol/L | EXTERNAL | | | | | | LAB | | + + + + + + | CO2 | 19 (L) | 23 - 32 mmol/L | EXTERNAL | | | | | | LAB | | + + + + + + | Anion Gap | 18 | 5 - 20 mmol/L | EXTERNAL | | | | | | LAB | | + + + + + + | Glucose, | 84 | 65 - 99 mg/dL | EXTERNAL | | | Fasting | | | LAB | | + + + + + + | BUN | 7 (L) | 8 - 25 mg/dL | EXTERNAL | | | | | | LAB | | + + + + + + | Creatinine | 0.7 | 0.50 - 1.00 | EXTERNAL | | | | | mg/dL | LAB | | + + + + + + | BUN/Creatin | 10 | | EXTERNAL | | | ine Ratio | | | LAB | | + + + + + + | Calcium | 7.3 (L) | 8.5 - 10.5 | EXTERNAL | | | | | mg/dL | LAB | | + + + + + + | Protein, | 6.1 (L) | 6.3 - 8.2 g/dL | EXTERNAL | | | Total | | | LAB | | + + + + + + | Albumin | 1.6 (L) | 3.6 - 5.0 g/dL | EXTERNAL | | | | | | LAB | | + + + + + + | Globulin | 4.5 | 1.3 - 4.9 g/dL | EXTERNAL | | | | | | LAB | | + + + + + + | A/G Ratio | 0.4 (L) | 1.0 - 2.4 | EXTERNAL | | | | | | LAB | | + + + + + + | Bilirubin | 0.8 | 0.1 - 1.5 mg/dL | EXTERNAL | | | Total | | | LAB | | + + + + + + | ALP, | 88 | 35 - 115 U/L | EXTERNAL | | | External | | | LAB | | + + + + + + | AST | 30 | 10 - 45 U/L | EXTERNAL | | | | | | LAB | | + + + + + + | ALT | 9 (L) | 10 - 65 U/L | EXTERNAL | | | | | | LAB | | + + + + + [...] BY | | | | | | 1.210.This eGFR is | | | | | | calculated using the | | | | | | [facility] traceable | | | | | | equation.Testing | | | | | | performed at [facility], [address] | | | | | | [facility], | | | | | | [place] [address] | | | | + + + + + + + + | Specimen | + + | Blood specimen | | (specimen) | + + + +---------+ + + | Performing | Address | City/State/Zipcode | Phone Number | | Organization | | | | + +---------+ + + | EXTERNAL LAB | | | | + +---------+ + + Hemoglobin and Hematocrit (08/25/2018 11:45 PM PDT) + + + + + + | Component | Value | Ref Range | Performed | Pathologist | | | | | At | Signature | + + + + + + | Hemoglobin | 9.8 (L) | 11.3 - 15.5 | EXTERNAL | | | | | g/dL | LAB | | + + + + + + | Hematocrit, | 28.7 (L)Comment: Testing | 34.0 - 46.0 % | EXTERNAL | | | POC | performed at [facility];[address] | | LAB | | | | [address];[place], [place] | | | | | | [address] | | | | + + + + + + + + | Specimen | + + | | + + + +---------+ + + | Performing | Address | City/State/Zipcode | Phone Number | | Organization | | | | + +---------+ + + | EXTERNAL LAB | | | | + +---------+ + + Hemoglobin and Hematocrit (08/25/2018 6:54 PM PDT) + + + + + + | Component | Value | Ref Range | Performed | Pathologist | | | | | At | Signature | + + + + + + | Hemoglobin | 9.6 (L) | 11.3 - 15.5 | EXTERNAL | | | | | g/dL | LAB | | + + + + + + | Hematocrit, | 28.5 (L)Comment: Testing | 34.0 - 46.0 % | EXTERNAL | | | POC | performed at [facility];[address] | | LAB | | | | [address];[place], [place] | | | | | | [address] | | | | + + + + + + + + | Specimen | + + | | + + + +---------+ + + | Performing | Address | City/State/Zipcode | Phone Number | | Organization | | | | + +---------+ + + | EXTERNAL LAB | | | | + +---------+ + + Potassium (08/25/2018 6:54 PM PDT) + + + + + + | Component | Value | Ref Range | Performed | Pathologist | | | | | At | Signature | + + + + + + | K | 3.7Comment: Testing | 3.5 - 4.9 | EXTERNAL | | | | performed at [facility];[address] | mmol/L | LAB | | | | [address];[place], [place] | | | | | | [address] | | | | + + + + + + + + | Specimen | + + | Blood specimen | | (specimen) | + + + +---------+ + + | Performing | Address | City/State/Zipcode | Phone Number | | Organization | | | | + +---------+ + + | EXTERNAL LAB | | | | + +---------+ + + Magnesium (08/25/2018 6:54 PM PDT) + + + + + + | Component | Value | Ref Range | Performed | Pathologist | | | | | At | Signature | + + + + + + | Magnesium | 1.4 (L)Comment: Testing | 1.7 - 2.4 mg/dL | EXTERNAL | | | | performed at [facility];[address] | | LAB | | | | [address];[place] | | | | | | [address] | | | | + + + + + + + + | Specimen | + + | Blood specimen | | (specimen) | + + + +---------+ + + | Performing | Address | City/State/Zipcode | Phone Number | | Organization | | | | + +---------+ + + | EXTERNAL LAB | | | | + +---------+ + + ECG 12 lead (08/25/2018 3:00 PM PDT) + + + + + + | Component | Value | Ref Range | Performed | Pathologist | | | | | At | Signature | + + + + + + | DIAGNOSIS: | Sinus | | EXTERNAL | | | | tachycardiaNonspecific | | LAB | | | | ST and T wave | | | | | | abnormalityAbnormal | | | | | | ECGWhen compared with | | | | | | ECG of 28-JUL-2011 | | | | | | 23:07,T wave inversion | | | | | | now evident in Lateral | | | | | | leadsThis ECG contains | | | | | | Unconfirmed | | | | | | Interpretation | | | | | | Statements. See ED | | | | | | Record for Physician | | | | | | Interpretation. | | | | | | Confirmed by MUSE READ | | | | | | ONLY, -COMPUTER ([id number]), | | | | | | editorial project manager Fabiana Morrison | | | | | | ([phone]) on 08/26/2018 | | | | | | 4:05:38 AM | | | | + + + + + + + + | Specimen | + + | | + + + + + | Narrative | Performed At | + + + | [facility] | EXTERNAL LAB | + + + + +---------+ + + | Performing | Address | City/State/Zipcode | Phone Number | | Organization | | | | + +---------+ + + | EXTERNAL LAB | | | | + +---------+ + + Type and Screen (08/25/2018 2:35 PM PDT) + + + + + + | Component | Value | Ref Range | Performed | Pathologist | | | | | At | Signature | + + + + + + | ABO Rh | O POSITIVE | | EXTERNAL | | | | | | LAB | | + + + + + + | Antibody | NEGATIVE | | EXTERNAL | | | Screen | | | LAB | | + + + + + + | BB BAND | [id number] | | EXTERNAL | | | | performed at [facility];[address] | | LAB | | | | [address];[place] | | | | | | [address] | | | | + + + + + + + + | Specimen | + + | Blood specimen | | (specimen) | + + + +---------+ + + | Performing | Address | City/State/Zipcode | Phone Number | | Organization | | | | + +---------+ + + | EXTERNAL LAB | | | | + +---------+ + + Ammonia (08/25/2018 2:07 PM PDT) + + + + + + | Component | Value | Ref Range | Performed | Pathologist | | | | | At | Signature | + + + + + + | Ammonia | 32Comment: Testing | umol/L | EXTERNAL | | | | performed at [facility];[address] | | LAB | | | | [address];[place] | | | | | | [address] | | | | + + + + + + + + | Specimen | + + | Blood specimen | | (specimen) | + + + +---------+ + + | Performing | Address | City/State/Zipcode | Phone Number | | Organization | | | | + +---------+ + + | EXTERNAL LAB | | | | + +---------+ + + HISTORICAL LAB PANEL RESULT (08/25/2018 1:45 PM PDT) + + + + + -+ | Component | Value | Ref Range | Performed | Pathologist | | | | | At | Signature | + + + + + -+ | WBC | 6.47 | 3.80 - 11.00 | EXTERNAL | | | | | K/uL | LAB | | + + + + + -+ | Non- | 2.80 (L) | 3.70 - 5.10 | EXTERNAL | | | Red Blood | | M/uL | LAB | | | Cells | | | | | | Counted | | | | | + + + + + -+ | Hemoglobin | 8.8 (L) | 11.3 - 15.5 | EXTERNAL | | | | | g/dL | LAB | | + + + + + -+ | Hematocrit, | 26.0 (L) | 34.0 - 46.0 % | EXTERNAL | | | POC | | | LAB | | + + + + + -+ | MCV | 92.9 | 80.0 - 100.0 fl | EXTERNAL | | | | | | LAB | | + + + + + -+ | MCH | 31.5 | 27.0 - 34.0 pg | EXTERNAL | | | | | | LAB | | + + + + + -+ | MCHC | 33.9 | 32.0 - 35.5 | EXTERNAL | | | | | g/dL | LAB | | + + + + + -+ | RDW-CV | 50.8 | 37 - 53 fl | EXTERNAL | | | | | | LAB | | + + + + + -+ | Platelet | 49 (LL)Comment: CALLED | 150 - 400 K/uL | EXTERNAL | | | Count | TO DR SPEAR IN ED AT | | LAB | | | Plasma | 1401 BY TRREAD BACK | | | | | | RESULTS VERIFIED | | | | | | | | | | + + + + + -+ | MPV | 7.7 | fl | EXTERNAL | | | | | | LAB | | + + + + + -+ | Differentia | AUTOMATED | | EXTERNAL | | | l Type | | | LAB | | + + + + + -+ | % Segmented | 87.14 | % | EXTERNAL | | | | | | LAB | | | Neutrophils | | | | | + + + + + -+ | % | 4.24 | % | EXTERNAL | | | Lymphocytes | | | LAB | | + + + + + -+ | % Monocytes | 7.57 | % | EXTERNAL | | | | | | LAB | | + + + + + -+ | % | 0.06 | % | EXTERNAL | | | Eosinophils | | | LAB | | + + + + + -+ | % Basophils | 0.99 | % | EXTERNAL | | | | | | LAB | | + + + + + -+ | Absolute | 5.64 | 1.90 - 7.40 | EXTERNAL | | | Segmented | | K/uL | LAB | | | Neutrophils | | | | | + + + + + -+ | Absolute | 0.27 (L) | 1.00 - 3.90 | EXTERNAL | | | Lymphocytes | | K/uL | LAB | | + + + + + -+ | Absolute | 0.49 | 0.00 - 0.80 | EXTERNAL | | | Monocytes | | K/uL | LAB | | + + + + + -+ | Absolute | 0.00 | 0.00 - 0.50 | EXTERNAL | | | Eosinophils | | K/uL | LAB | | + + + + + -+ | Absolute | 0.06 | 0.00 - 0.10 | EXTERNAL | | | Basophils | | K/uL | LAB | | + + + + + -+ | RBC | RBC AND PLT MORPHOLOGY | | EXTERNAL | | | Morphology | APPEAR NORMAL | | LAB | | + + + + + -+ | Differentia | SLIDE SCANNED, AGREES | | EXTERNAL | | | l Comments | WITH AUTOMATED RESULTS. | | LAB | | + + + + + -+ | Na | 136 | 135 - 145 | EXTERNAL | | | | | mmol/L | LAB | | + + + + + -+ | K | 3.2 (L) | 3.5 - 4.9 | EXTERNAL | | | | | mmol/L | LAB | | + + + + + -+ | Cl | 105 | 99 - 109 mmol/L | EXTERNAL | | | | | | LAB | | + + + + + -+ | CO2 | 17 (L) | 23 - 32 mmol/L | EXTERNAL | | | | | | LAB | | + + + + + -+ | Anion Gap | 17 | 5 - 20 mmol/L | EXTERNAL | | | | | | LAB | | + + + + + -+ | Glucose, | 74 | 65 - 99 mg/dL | EXTERNAL | | | Fasting | | | LAB | | + + + + + -+ | BUN | 8 | 8 - 25 mg/dL | EXTERNAL | | | | | | LAB | | + + + + + -+ | Creatinine | 0.57 | 0.50 - 1.00 | EXTERNAL | | | | | mg/dL | LAB | | + + + + + -+ | BUN/Creatin | 14 | | EXTERNAL | | | ine Ratio | | | LAB | | + + + + + -+ | Calcium | 7.3 (L) | 8.5 - 10.5 | EXTERNAL | | | | | mg/dL | LAB | | + + + + + -+ | Protein, | 5.9 (L) | 6.3 - 8.2 g/dL | EXTERNAL | | | Total | | | LAB | | + + + + + -+ | Albumin | 2.4 (L) | 3.6 - 5.0 g/dL | EXTERNAL | | | | | | LAB | | + + + + + -+ | Globulin | 3.5 | 1.3 - 4.9 g/dL | EXTERNAL | | | | | | LAB | | + + + + + -+ | A/G Ratio | 0.7 (L) | 1.0 - 2.4 | EXTERNAL | | | | | | LAB | | + + + + + -+ | Bilirubin | 1.2 | 0.1 - 1.5 mg/dL | EXTERNAL | | | Total | | | LAB | | + + + + + -+ | ALP, | 95 | 35 - 115 U/L | EXTERNAL | | | External | | | LAB | | + + + + + -+ | AST | 34 | 10 - 45 U/L | EXTERNAL | | | | | | LAB | | + + + + + -+ | ALT | <7 (L) | 10 - 65 U/L | EXTERNAL | | | | | | LAB | | + + + + + -+ | Estimated | >60Comment: GFR <60: | [...] BY | | | | | | 1.210.This eGFR is | | | | | | calculated using the | | | | | | MDRD [facility] traceable | | | | | | equation. | | | | + + + + + -+ | CK, Total | 84 | 30 - 240 U/L | EXTERNAL | | | | | | LAB | | + + + + + -+ | INR | 1.2Comment: REFERENCE | | [...] SYSTEMIC | | | | | | EMBOLISM | | | | + + + + + -+ | aPTT, | 32 | 23 - 32 seconds | EXTERNAL | | | Patient | | | LAB | | + + + + + -+ | CK-MB | 1.3 | 0.5 - 3.6 ng/mL | EXTERNAL | | | | | | LAB | | + + + + + -+ | CK-MB Index | 1.5Comment: CK INDEX | | EXTERNAL | | | | INTERPRETATION: | | LAB | | | | MMB ng/mL | | | | | | | | | | | |CK INDEX INTERPRETATION: | | | | | | MMB ng/mL | | | | | | | | | | + + + + + -+ + + | Specimen | + + | | + + + +---------+ + + | Performing | Address | City/State/Zipcode | Phone Number | | Organization | | | | + +---------+ + + | EXTERNAL LAB | | | | + +---------+ + + Troponin I (08/25/2018 1:45 PM PDT) + + + + + + | Component | Value | Ref Range | Performed | Pathologist | | | | | At | Signature | + + + + + + | Troponin I, | 0.069 (H)Comment: 0.04 | 0.00 - 0.04 | EXTERNAL | | | Qual | ng/mL or less | ng/mL | LAB | | | | Negative, repeat | | | | | | testing in four to six | | | | | | hour if clinically | | | | | | indicted0.05 to 0.77 | | | | | | ng/mL | | | | | | Suspicious for | | | | | | myocardial injury. | | | | | | Serial measurements may | | | | | | be necessary to confirm | | | | | | or exclude the diagnosis | | | | | | of acute coronary | | | | | | syndrome. Repeat testing | | | | | | in four to six hours if | | | | | | indicated.0.78 or | | | | | | greater ng/mL | | | | | | Consistent with | | | | | | myocardial injury. | | | | | | Clinical and laboratory | | | | | | correlation recommended. | | | | | | Testing performed at | | | | | | [facility];[address] [place] [address] | | | | | | [facility];[place] [address] | | | | + + + + + + + + | Specimen | + + | Blood specimen | | (specimen) | + + + +---------+ + + | Performing | Address | City/State/Zipcode | Phone Number | | Organization | | | | + +---------+ + + | EXTERNAL LAB | | | | + +---------+ + + Magnesium (08/25/2018 1:45 PM PDT) + + + + + + | Component | Value | Ref Range | Performed | Pathologist | | | | | At | Signature | + + + + + + | Magnesium | 1.5 (L)Comment: Testing | 1.7 - 2.4 mg/dL | EXTERNAL | | | | performed at [facility];[address] | | LAB | | | | [address];[place], [place] | | | | | | [address] | | | | + + + + + + + + | Specimen | + + | Blood specimen | | (specimen) | + + + +---------+ + + | Performing | Address | City/State/Zipcode | Phone Number | | Organization | | | | + +---------+ + + | EXTERNAL LAB | | | | + +---------+ + + Ethanol (08/25/2018 1:45 PM PDT) + + + + + + | Component | Value | Ref Range | Performed | Pathologist | | | | | At | Signature | + + + + + + | Ethyl | 59 (H)Comment: Testing | mg/dL | EXTERNAL | | | Alcohol | performed at [facility] | | LAB | | | | [address];[place], [place] | | | | | | [address] | | | | + + + [...] + | Diagnosis | + + | Hematemesis with nausea | + + | Alcohol withdrawal syndrome with complication (HCC) | + + | 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
--- OUTSIDE RECORDS SUMMARY | ~2020-01-12 | XMS | Encounter Summary ---
Demographics + + + | Address | [address] | | | [place] [address] | + + + | Home Phone | | + + + | Preferred Language | Unknown | + + + | Marital Status | Single | + + + | Hoahaoism Affiliation | [id number] | + + + | Race | or | + + + | Ethnic Group | Not or | + + + Author + + + | Author | [facility] | | | and [place] | + + + | Organization | [facility] | | | and [place] | + + + | Address | Unknown | + + + | Phone | Unavailable | + + + Support + + + + + | Name | Relationship | Address | Phone | + + + + + | Joanne Pham | ECON | [address] | | | | | [place] | | | | | [address] | | + + + + + | Viktor Son | EDDIE | Unknown | | + + + + + | Edd Gill | ECON | Unknown | | + + + + + | Conner Barber | ECON | Unknown | | + + + + + Care Team Providers + +------+ + | Care Terry Cloth Cutter Hand Name | Role | Phone | + +------+ + | Trixie Rose PA-C | PCP | | + +------+ + Encounter Details +--------+ + + + + | Date | Type | Department | Care Team | Description | +--------+ + + + + | 11/17/ | Orders Only | [facility] | Provider, | | | 2018 | | [facility] | [address] | | | | | [address] | [place] | | | | | [address] | [place] [address] | | | | | [address] | | | | | | [phone] | | | +--------+ + + + [...]
--- OUTSIDE RECORDS SUMMARY | ~2020-01-12 | XMS | Encounter Summary ---
Demographics + + + | Address | [address] | | | [place] [address] | + + + | Home Phone | | + + + | Preferred Language | Unknown | + + + | Marital Status | Single | + + + | Adventism Affiliation | [id number] | + + + | Race | or | + + + | Ethnic Group | Not or | + + + Author + + + | Author | [facility] | | | and [place] | + + + | Organization | [facility] | | | and [place] | + + + | Address | Unknown | + + + | Phone | Unavailable | + + + Support + + + + + | Name | Relationship | Address | Phone | + + + + + | Joanne Pham | ECON | [address] | | | | | [place] | | | | | [id number] | | + + + + + | Viktor Son | EDDIE | Unknown | | + + + + + | Edd Gill | ECON | Unknown | | + + + + + | Conner Barber | ECON | Unknown | | + + + + + Care Team Providers + +------+ + | Care Exceptional Student Education Teacher Name | Role | Phone | [...] + + | 10/31/ | Hospital | [facility] | Danish George, | Hypertensive urgency | | 2017 - | Encounter | [facility] | [address] | (Primary Dx); | | | | [address] | [place] | Altered sensorium; | | 11/07/ | | [place] [id number] | [id number] | Hypokalemia; | | 2017 | | [phone] | | Recurrent seizures | | | | | Michael, Morro Singletary, | (HCC); Delirium | | | | | MD [address] | tremens (HCC); | | | | | [facility] [place] | Alcohol withdrawal | | | | | [place] [address] | seizure, with | | | | | [phone] | unspecified | | | | | | complication (HCC); | | | | | Francisco Choi P, | 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 1970 Admit date: 10/31/2016 Discharge [...] Patient was evaluated earlier this morning at [facility] em ergency room where she presented [...] might be different from the origin al. [facility] PMG Hospitalist Progress Note Shaila Son is [...] as outlined above. Jakub Chun 11/06/2016 10:54 [facility] Portions of this chart may have been created with Bellabeat voice recognition software. Occasi onal wrong-word or sound-alike substitutions may have occurred due to the inherent gallardo itations of voice recognition software. Please read the chart carefully and recognize, using context, where these substitutions have occurred Jakub Macias MD - 11/05/2016 11:30 AM PDT [facility] PMG Hospitalist Progress Note Shaila Son is [...] as outlined above. Jakub Chun 11/05/2016 11:30 [facility] Portions of this chart may have been created with Bellabeat voice recognition software. Occasi onal wrong-word or sound-alike substitutions may have occurred due to the inherent gallardo itations of voice recognition software. Please read the chart carefully and recognize, using context, where these substitutions have occurred Gilberto, Jakub Smith MD - 11/04/2016 8:52 AM PDT [facility] PMG Hospitalist Progress Note Shaila Son is [...] WWP, trace edema bilaterally Neurological: Oriented to [place], person, not hospital Jackson catheter present: No [...] as outlined above. Jakub Chun 11/04/2016 8:52 [facility] Portions of this chart may have been created with Bellabeat voice recognition software. Occasi onal wrong-word or [...] Report to JAIME Martin who continues care. Jakub Macias MD - 11/03/2016 7:49 AM PDT [facility] PMG Hospitalist Progress Note Shaila Son is [...] A small skin incision was made. 8 Nauruan paracentesis needle and sheath was ad vanced [...] as outlined above. Jakub Chun 11/03/2016 7:49 [facility] Portions of this chart may have been created with Bellabeat voice recognition software. Occasi onal wrong-word or sound-alike substitutions may have occurred due to the inherent gallardo itations of voice recognition software. Please read the chart carefully and recognize, using context, where these substitutions have occurred Jakub Macias MD - 11/02/2016 7:23 AM PDT [facility] PMG Hospitalist Progress Note Shaila Son is [...] only to person, states she [facility] Jackson catheter present: Yes If so, reason: [...] BF % Lymphocytes 18 % BF % Macro/Red [place]ow 68 % BF Total cells counted 100 [...] now present Confirmed by DAVID MADERA, PEPE ([id number]) on 11/02/2016 7:05:01 AM Comprehensive Metabolic Panel [...] A small skin incision was made. 8 Nauruan paracentesis needle and sheath was ad vanced [...] as outlined above. Jakub Chun 11/02/2016 7:23 [facility] Portions of this chart may have been created with Bellabeat voice recognition software. Occasi onal wrong-word or sound-alike substitutions may have occurred due to the inherent gallardo itations of voice recognition software. Please read the chart carefully and recognize, using context, where these substitutions have occurred Francisco De La Garza DO - 11/02/2016 12:42 AM PDT [facility] BRIEF NIGHT COVERAGE NOTE Patient: Shaila Son : 1970: Age: 46 y.o. MedRec: [id number] Admission date: 10/31/2016 Hospital day # : [...] step down. Francisco Choi DO 11/02/2016 0:42 [facility] Portions of this chart may have been created with Bellabeat voice recognition software. Occasi onal wrong-word or [...] name, strength, and direction X [facility] ( dr mcfarland and trixie rose PA-C nurses) X [facility] [place] X [employer] insurance reported information X Care [...] than the ones that are on the EXTENSION SERVICE SPECIALIST list Medication review performed and electronically signed by Lily Davison, [employer] I Assembler 2016 13:04 Reviewed by Annmarie Mcfadden, PharmD 11/01/2016 13:12 akub Chun MD - 11/01/2016 9:25 AM PDT [facility] PMG Hospitalist Progress Note Shaila Son is [...] PH UA 6.0 5.0 - 8.0 Specific [place] 1.014 1.001 - 1.030 PROTEIN UA >=500 [...] ECGs available Confirmed by PEPE HERNANDEZ MD ([id number]) on 11/01/2016 6:25:42 AM Urinalysis with Microscopic with Culture if Indicated Result Value Ref Range COLOR Straw Light Yellow, Yellow, Straw CLARITY Clear Clear PH UA 6.0 5.0 - 8.0 Specific [place] 1.005 1.001 - 1.030 PROTEIN UA 30 [...] as outlined above. Jakub Chun 11/01/2016 9:25 [facility] Portions of this chart may have been created with Bellabeat voice recognition software. Occasi onal wrong-word or sound-alike substitutions may have occurred due to the inherent gallardo itations of voice recognition software. Please read the chart carefully and recognize, using context, where these substitutions have occurred documented in this encounter H&P Notes Francisco Choi DO - 11/01/2016 12:46 AM PDTFormatting of this note might be different f rom the original. [facility] HISTORY & PHYSICAL Patient: Shaila Son : 1970: Age: 46 y.o. MedRec: [id number] PCP: Trixie Rose PA-C Admission date: 10/31/2016 [...] was evaluat ed earlier this morning at [facility] emergency room where she presented with [...] CKTOTAL No results for input(s): PHART, PO2ART, PQL1ZKZ, NNC3DLF, BEART, F0ISMYIH in the last 168 h ours. No results for input(s): SPECSOURCE, PHPOCB, HCO3, TCO2, BEART, BE, UIBD2BXG in the last 16 8 hours. Invalid input(s): RVDMS4NO, ANLP8KS (dot meylab) Xray Results: Ct Head Wo [...] Status Full code Medical Decision Maker Patient [facility] Documentation I expect this patient will be hospitalized for greater than 2-midnights and expect the post -hospital plan to be discharge to home or to an adult foster home. Time spent with the patient and sister (of which more than 50% was in counseling and/or neonatal icu coordinator rdination the patient's care as outlined above) was 60 minutes. Electronically signed by: Francisco Choi DO 11/01/2016 0:47 [facility] Dot phrase reference: VSHOSP (VS in table, last 24 hours) MEYLAB (various labs to pull in) DT (date and time) LABRCNTIP[K:3,Na:3 (last 3 sets of labs using potassium and sodium as examples) HGB HCT PLT INR GLU POCGLU Na K BUN CREA, CALCIUM TROPONINI BNP DIGOXIN Portions of this chart may have been created with Bellabeat voice recognition software. Occasi onal wrong-word or [...] Needs: (based on 75 kg) Kcal needs: 3551-5832 Kcals/day Protein needs:75-85 grams of protein/day Fluid goal:5288-0947 cc fluid per day Nutrition Plan of [...] in 1 days. Available as needed, ext [phone] Assessment: Diet Order: For your reference, current, [...] Kunz MD - 10/31/2016 7:37 PM PDT [facility] Shaila Son Emergency Department Encounter Note [address] [place] [address] PCP:Trixie Rose PA-C [phone] CHIEF COMPLAINT: Chief Complaint Patient presents with Seizure (Adult - Alcoholic) ED Room: 421/421-[facility] Shaila Son is a 46 y.o. female who presents to the Emergency Department presents w [facility] family after having 2 seizures in [...] PH UA 6.0 5.0 - 8.0 Specific [place] 1.014 1.001 - 1.030 PROTEIN UA >=500 [...] PH UA 6.0 5.0 - 8.0 Specific [place] 1.005 1.001 - 1.030 PROTEIN UA 30 [...] BF % Lymphocytes 18 % BF % Macro/[place] 68 % BF Total cells counted 100 [...] A small skin incision was made. 8 Nauruan paracentesis needle and sheath was advanced under [...] by: Hakeem Barroso MD Electronically signed: 11/02/2016 8:34 AM XR [...] AM 20:39 Sinus tachycardia at 114 Normal ID and VALENT[place] Normal QRS and [place] Normal QT and QTc Normal ST/T without acute ischemic changes Very similar morphology without wandering baseline in comparison to an electrocardiogram da magen September 01, 2015 with the exact same rate of 114 bpm. Interpreted by Danish George DO. ED COURSE & MEDICAL DECISION MAKING Pertinent Labs & Imaging studies were reviewed along with EMS notes and [facility] record s if applicable. (See chart for [...] discussed the patients clinical presentation with the quality control tester hosp italist for continuity of care and [...] recognition system. The possibility of "sound alike" binder fixer errors, addition and/or deletions may occur. If [...] he will get one on loan in [place]. This therapsit suggested pt wear magen hose for dri ve home and assisted w/ donning magen hose. Pt will d/c home this shortly w/ neighbor friend. strategic manager notified this therapist recommended extended tub bench for safety w/ tub shower s at home and pt's neighbor friend will be procuring one for pt. Occupational Therapy Discharge Recommendations are: Recommended discharge disposition: home with assist Post discharge occupational therapy recommendation: family involved/supportive, will benef it from structured setting Equipment Recommendations: Planned Interventions:ADL retraining, IADL retraining, cognitive retraining, fine motor neonatal icu coordinator rdination training Recommended Frequency: 3 times/wk Patient [...] w/o physical assist LB Dressing, Level of [place]: stand by assist Assistive Device: none LB Dressing Assess/Train, Position: sitting LB Dressing Assess/Train, Impairments: decreased flexibility, pain, motor control impaired, coordination impaired, impaired balance Functional Endurance good Transfers Completed toilet t/f w/ supervison/cues using grab bar and dry run step in shower t/f w/ laguerre pervision/cues using grab bar Sit-Stand, Level of [place]: stand by assist, verbal cues required Stand-Sit, Level of [place]: supervised Ura-Ruhsx-Nki, Assistive Device: 2 wheeled walker (FWW) Toilet, Level of [place]: supervised, verbal cues required Toilet, Assistive Device: 2 wheeled walker (FWW), grab bars Walk-in shower, Level of [place]: supervised, verbal cues required Walk-in shower, Assistive Device: 2 wheeled walker (FWW), grab bars Impairments: decreased flexibility, strength decreased, impaired balance LB Dressing Goal Flowsheet Row Most Recent Value STG Status progressing at 11/07/2016 1400 STG [place] Level modified independent at 11/03/2016 1638 STG Adaptive Equipment none at 11/03/2016 1638 Toilet Transfer Goal Flowsheet Row Most Recent Value STG Status progressing at 11/07/2016 1400 STG [place] Level modified independent at 11/03/2016 1638 STG Assistive Device toilet safety frame at 11/03/2016 1638 Tub/Shower Transfer Goal Flowsheet Row Most Recent Value Tub/Shower Type tub/shower combo at 11/03/2016 1638 STG Status not addressed at 11/07/2016 1400 STG [place] Level modified independent at 11/03/2016 1638 Functional Cognition Goal Flowsheet Row Most Recent Value STG Status progressing at 11/07/2016 1400 STG pt able to attend to and fully participate in self care ADL tasks, seated recreational activities and conversations consistently, 4/5 times. at 11/03/2016 1638 lan of Care - Ashlyn Ocampo - 11/07/2016 2:02 PM PDTDischarge Planning: This EMS INSTRUCTOR spoke with Shaila at her bedside. She [...] amounts of clear yellow urine. lan of [facility] - Leah Cole RRT - 11/07/2016 3:39 [...] Breath so unds appear clear. lan of [facility] - Erika Wadsworth RN - 11/06/2016 6:38 [...] her Aunt, her Sister and her Aunt's regional flatbed truck driver. I received a call from Amena from [place] this afternoon and she was asking about [...] factor , as pt has difficulty tracking [facility] final attention portion of the test. [...] retraining, IADL retraining, cognitive retraining, fine motor neonatal icu coordinator rdination training Recommended Frequency: 3 times/wk Patient Status/Goals: Reflects last filed data and may be from multiple contributors. ADLs Pt performing grooming and toileting with supervision, per RN OCCUPATIONAL report. Cognitive Administered SLUMS cognitive test, and pt scored in dementia range, 17/30. However, pt is m uch improved from previous OT treatment. She is able to track activity and instructions, tho ugh speech continues to be quiet. Cognitive Tests Standardized Tests: [facility] Mental Status ([facility]): Shaila scored 17/30 on the SLUMS, indicating she currently has a severe level of cognitive di sorder. Interpretation: - Patients with High School Education 27-30 = normal 21-26 = mild neurocognitive disorder 1-20 = dementia - Patients with less than High School Education 25-30 = normal 20-24 = mild neurocognitive disorder 1-19 = dementia For more information, please visit: [email or web address] LB Dressing Goal Flowsheet Row Most Recent Value STG Status new at 11/03/2016 1638 STG [place] Level modified independent at 11/03/2016 1638 STG Adaptive Equipment none at 11/03/2016 1638 Toilet Transfer Goal Flowsheet Row Most Recent Value STG Status new at 11/03/2016 1638 STG [place] Level modified independent at 11/03/2016 1638 STG Assistive Device toilet safety frame at 11/03/2016 1638 Tub/Shower Transfer Goal Flowsheet Row Most Recent Value Tub/Shower Type tub/shower combo at 11/03/2016 1638 STG Status new at 11/03/2016 1638 STG [place] Level modified independent at 11/03/2016 1638 Functional Cognition Goal Flowsheet Row Most Recent Value STG Status new at 11/03/2016 1638 STG pt able to attend to and fully participate in self care ADL tasks, seated recreational activities and conversations consistently, 4/5 times. at 11/03/2016 1638 Electronically signed by: Carlos Gonsales OT, 11/06/2016 18:19 lan of [facility] - Alicia Baker RN - 11/06/2016 6:10 PM PDTProblem: Discharge Planning Goal: Patient will be discharged in a safe manner Outcome: Unchanged This CM called patient's home and spoke with Anette, patient's sister, requesting her cell # which is [phone]. Per patient, Anette is taking cleaning at [...] known. lan of Care - Lul Hermosillo, EXTENSION SERVICE SPECIALIST - 11/06/2016 2:15 PM PDTFormatting of this [...] x2 d/t R forearm cramp/tightness Level of [place]: stand by assist, verbal cues required (close) Assistive Device: 2 wheeled walker (FWW) Distance (feet): 195', 120', 75' Impairments: impaired balance, motor control impaired, coordination impaired Transfers Light Sup d/t general safety, slight impulsivity, vc for waiting for therapist to be in pos ition, vc for bringing AD device with her to chair Sit-Stand, Level of [place]: supervised, verbal cues required (Light) Stand-Sit, Level of [place]: supervised, verbal cues required Hox-Slrjs-Srz, Assistive Device: 2 wheeled walker (FWW) Safety Issues: sequencing ability decreased, step length decreased, loses balance backward Impairments: pain, impaired balance, coordination impaired, motor control impaired Bed Mobility Mod I d/t extra time Assistive Device: bed rails Supine to Sit, Level of [place]: modified independent Sit to Supine, Level of [place]: modified independent Impairments: postural control impaired, coordination [...] STG Review Date 11/09/16 at 11/03/2016 1150 Qzcfwf-Aja-Oejipt Goal Flowsheet Row Most Recent Value STG Status progressing at 11/06/2016 1415 STG [place] Level independent at 11/03/2016 1150 STG Assistive Device none at 11/03/2016 1150 Ocw-Yabpt-Vrr Goal Flowsheet Row Most Recent Value STG Status progressing at 11/06/2016 1415 STG [place] Level modified independent at 11/05/2016 1419 STG Assistive Device -- [least restrictive AD, either FWW or cane] at 11/05/2016 1419 Gait Goal Flowsheet Row Most Recent Value STG Status progressing at 11/06/2016 1415 STG [place] Level modified independent at 11/04/2016 1808 STG [...] Needs: (based on 75 kg) Kcal needs: 2061-7492 Kcals/day Protein needs:75-80 grams of protein/day Fluid goal:0785-8716 cc fluid per day Nutrition Plan of [...] in 3 days. Available as needed, ext [phone] Assessment: Diet Order: For your reference, current, [...] through the night. AM labs drawn from [facility] PICC. A-1 blood return. Pt. has had [...] w/ excessive wt on BUE's. Level of [place]: contact guard assist, verbal cues required Assistive Device: 2 wheeled walker (FWW) Distance (feet): 300 Impairments: impaired balance, motor control impaired, coordination impaired Transfers good technique, no cuing needed Sit-Stand, Level of [place]: supervised Stand-Sit, Level of [place]: supervised Qzn-Dipfn-Fpp, Assistive Device: 2 wheeled walker (FWW) Safety Issues: sequencing ability decreased, step length decreased, loses balance backward Impairments: pain, impaired balance, coordination impaired, motor control impaired Bed Mobility No physical assist needed Assistive Device: bed rails, HOB elevated Supine to Sit, Level of [place]: modified independent Sit to Supine, Level of [place]: modified independent Impairments: postural control impaired, coordination [...] STG Review Date 11/09/16 at 11/03/2016 1150 Mykyun-Ghm-Suuttj Goal Flowsheet Row Most Recent Value STG Status progressing at 11/05/2016 1419 STG [place] Level independent at 11/03/2016 1150 STG Assistive Device none at 11/03/2016 1150 Tsx-Lhnoq-Hyk Goal Flowsheet Row Most Recent Value STG Status progressing, revised at 11/05/2016 1419 STG [place] Level modified independent at 11/05/2016 1419 STG Assistive Device -- [least restrictive AD, either FWW or cane] at 11/05/2016 1419 Gait Goal Flowsheet Row Most Recent Value STG Status progressing at 11/05/2016 1419 STG [place] Level modified independent at 11/04/2016 1808 STG [...] III. tatiana of Care - Livan Motley, MIMEOGRAPH OPERATOR - 11/05/2016 5:12 AM PDTProblem: Patient Care [...] SOB. Inter mittent audible wheeze. lan of [facility] on, Kamille Dickson RN - 11/05/2016 5:11 [...] bloo d return. Possibly will go to [facility] upon discharge. lan of Care - Lachelle [...] moderately ataxic, equal wt bearing Level of [place]: contact guard assist, verbal cues required, set up required Assistive Device: 2 wheeled walker (FWW) Distance (feet): 200 Impairments: impaired balance, motor control impaired, coordination impaired Transfers Cues provided to push up with UEs and reach back prior to sitting for improved safety. Sit-Stand, Level of [place]: (NT as pt was received walking from bathroom w/ sitter) Stand-Sit, Level of [place]: stand by assist, verbal cues required Ahr-Yuohx-Omw, Assistive Device: 2 wheeled walker (FWW) Safety [...] STG Review Date 11/09/16 at 11/03/2016 1150 Ljwbif-Qjt-Pqszrt Goal Flowsheet Row Most Recent Value STG Status new at 11/03/2016 1150 STG [place] Level independent at 11/03/2016 1150 STG Assistive Device none at 11/03/2016 1150 Ubx-Wlpfa-Fcg Goal Flowsheet Row Most Recent Value STG Status progressing at 11/04/2016 1808 STG [place] Level independent at 11/03/2016 1150 STG Assistive Device -- [TBD] at 11/03/2016 1150 Gait Goal Flowsheet Row Most Recent Value STG Status revised, progressing at 11/04/2016 180 STG [place] Level modified independent at 11/04/2016 180 STG [...] r her sister). Pt was admitted to [facility] with primary dx of seizures, severe electrolyte imba ramirez, malnutrition. acute heart failure, all likely related to ETOH and withdrawal. Per mark Baker, pt used SPC and Anette provided extensive assistance with dressing, bathing, mobil ity, cooking, cleaning. However, pt did walk independently at times and even without her can e but has hx of multiple falls. Ex-boyfriend lives in [facility] [place] [facility] on same property and he is the [...] weight shift onto L LE Level of [place]: contact guard assist, verbal cues required, set up required Assistive Device: 2 wheeled walker (FWW) Distance (feet): 40 Transfers Cues provided to push up with UEs and reach back prior to sitting for improved safety. Sit-Stand, Level of [place]: set up required, verbal cues required, contact guard assi st Stand-Sit, Level of [place]: contact guard assist, verbal cues required Nhm-Fzmen-Mwv, Assistive Device: 2 wheeled walker (FWW) Safety [...] STG Review Date 11/09/16 at 11/03/2016 1150 Jdkqfq-Xzh-Hvbgds Goal Flowsheet Row Most Recent Value STG Status new at 11/03/2016 1150 STG [place] Level independent at 11/03/2016 1150 STG Assistive Device none at 11/03/2016 1150 Phd-Sxwtw-Lfc Goal Flowsheet Row Most Recent Value STG Status new at 11/03/2016 1150 STG [place] Level independent at 11/03/2016 1150 STG Assistive Device -- [TBD] at 11/03/2016 1150 Gait Goal Flowsheet Row Most Recent Value STG Status new at 11/03/2016 1150 STG [place] Level independent at 11/03/2016 1150 STG Assistive Device -- [TBD] at 11/03/2016 1150 Electronically signed by: Clare Menchaca, PT, 11/03/2016 18:27 lan of Care - [facility] sis, Carlos Rice, OT - 11/03/2016 4:54 [...] retraining, IADL retraining, cognitive retraining, fine motor neonatal icu coordinator rdination training Recommended Frequency: 3 times/wk Patient Status/Goals: Reflects last filed data and may be from multiple contributors. ADLs Pt experiencing difficulty engaging in activity, attending to verbal instructions, replies are sometimes difficult to hear and understand. Max A to don socks LB Dressing, Level of [place]: maximal assist (25% patient effort) Assistive Device: none LB Dressing Assess/Train, Position: sitting LB Dressing Assess/Train, Impairments: decreased flexibility, pain, motor control impaired, coordination impaired, impaired balance Required min A to stand at sink with FWW for grooming tasks, tends to lean backward when up right, vs leaning on forearms on countertop. Grooming, Level of [place]: minimal assist (75% patient effort) Assistive Device: [...] of the time Transfers Sit-Stand, Level of [place]: minimal assist (75% patient effort) Stand-Sit, Level of [place]: contact guard assist Yac-Akzbr-Rbz, Assistive Device: 2 wheeled walker (FWW) Safety [...] STG Status new at 11/03/2016 1638 STG [place] Level modified independent at 11/03/2016 1638 STG Adaptive Equipment none at 11/03/2016 1638 Toilet Transfer Goal Flowsheet Row Most Recent Value STG Status new at 11/03/2016 1638 STG [place] Level modified independent at 11/03/2016 1638 STG Assistive Device toilet safety frame at 11/03/2016 1638 Tub/Shower Transfer Goal Flowsheet Row Most Recent Value Tub/Shower Type tub/shower combo at 11/03/2016 1638 STG Status new at 11/03/2016 1638 STG [place] Level modified independent at 11/03/2016 1638 Functional [...] Unchanged This CM called Janusz, DNS, at [facility] this AM. He stated that he did not receive the [facility] SN[facility] referral so efaxed the SNF referral with fac e sheet to him this AM if needed for patient. Per her sister, patient has been there in the past for a short while. TN# [id number], [id number]. Let Janusz know that she is not ready to be discharged yet, and still has a sitter. 10:20 This CM called and spoke with [facility] and they will be having someone call me regarding some help in the home for this patient. Number given them to call this CM back. Annemarie, patient child care centre manager, is not in today. 11:30 This CM received call from Yola, Community Health Nurse Spar Machine Operator Helper at [facility], p# [phone]. She stated that they do NOT provide any in home care giving, that this would need to be set up with [place] benefits. This CM gave Anette, patient's sister, the CM card with phone number and also the number of the [facility] for her to call in case the patient goes back home at discharge to get a home assessment done for setting up caregivers for her in the home. Let her know t hat [facility] does not provide these services. CM will need to follow up with [facility] regarding the referral faxed. Patient will most likely still be here over the weekend, which was told DWAYNE Boudreaux at [facility]. Electronically signed by: Alicia Baker RN 11/03/2016 [...] [G40.909] Altered sensorium [R40.4]. Spiritual Evaluation: Raised Oriental Orthodox Spiritual Intervention: Had prayer with patient and her sister. Pastoral presence, and Active Listening. Spiritual Outcomes: Patient and her family grateful for television repair teacher's visit. Spiritual Goals / Follow-up: Will see the patient as requested. If there are any other spiritual care issues that arise, please contact television repair teacher. ed Student Not e - Josias Fernandez, [...] - Check echo during this hospitalization. Isabella Feranndez OMS III. lan of Care - Cee Barros, MIMEOGRAPH OPERATOR - 11/03/2016 5:43 AM PDTProblem: Patient Care [...] for up to 5 hours. lan of [facility] - Valerie Ro RRT - 11/02/2016 5:15 [...] 9-13, patient was was tachycardic last night [id number] , metoprolol given x 5, breath jose [...] both live in their aunts home in [place] and she is Shaila's caregi juice and [...] that she chose to come here not [facility]'s since she just was in their ED yesterday for 3 hrs and they rele ased her and at home she had a "seizure" per Anette, so she was brought here by private car. Anette also states that Shaila is interested in quitting drinking and would like to go the [facility] in [place], a alcohol rehab center there. She also has 2 adult children ages 19 and 20 who live there in a foster home, but cold not get ahold of the family when she was just there recently to give them gifts that she had shannon duong, per Anette. Anette did report that patient has been at [facility] for rehab in the past when nereida jacobson needed it and that since this is close to their home Anette was in agreement to send a refe rral out to them again in case this is needed. [place] was too far away, she reports. [facility] faxed a SNF referral to with request to call this CM if needed for questions. Preference form was signed and placed in ghost chart. Left message with Irena to have her call me since was able to EPIC fax only not thru the i n-basket. This CM also called Uyen, financial counselor, requesting she come and assist [facility] applied for some in home caregiving since this has not been done in the past. She [place]. Anette states that patient's PCP is PERNELL Mcclendon, at the [facility],and that s he gets her meds from them as well, but no caregiving. Called and left message at [facility], p# [phone], to have Annemarie Garcia, pt c are [...] if needed. This CM also called the [facility], p# [phone], and left message with April ngo CM, worker of the day, to return call LASHAY to discuss increased needs at home for this patient. This was done at the request of Uyen financial counselor, since patient is from [facility]. CM will need to follow closer to discharge regarding a SNF placement or more C/G help in [facility].Electronically signed by: Alicia Baker RN 11/01/2016 12:09 14:45 Edwin, farm crew member for the day at [facility], called this CM and stated that if patient goes to SNF first for rehab the social worker psychiatric there would contact them to [facility] some home care set up with [...] Suzy Mcmillan RN - 11/01/2016 3:31 AM [id number]: rec'd pt to rm 452 from ER, pt is somnulent, l ethargic, opens eyes briefly to voice, denies pain. Sister, anette, at bedside, assists w ans wering admit qstns. pts abd is grossly distended w ascites, both legs w 4+ pitting edema to hip/flank areas. Skin is tough, thickened w patchy thick dry areas. lan of Suzy Mcmillan RN - 2:18 AM [id number]: pt rec'd to rm 452 from ER, [...] + | [facility] | [address] | [place] | [phone] | | [facility] | | [address] | | | - LABORATORY | | [...] + | [facility] | [address] | [place], [place] | [phone] | | [facility] | | [address] | | | - LABORATORY | | [...] mL/min/1.73m2 | [facility] | | | [place] | RATE,ESTIMATED | | MEDICAL | | | | mL/min/1.72x5Asgk than | | CENTER - | | [...] [address] | [place] | [phone] | | [facility] | | [address] | | | - LABORATORY | | [...] + | [facility] | [address] | [place] | [phone] | | [facility] | | [address] | | | - LABORATORY | | [...] - 1.030 | [facility] | | | [place], | | | [facility] | | [...] [address] | [place] | [phone] | | [facility] | | [address] | | | - LABORATORY | | [...] + | [facility] | [address] | [place] | [phone] | | [facility] | | [address] | | | - LABORATORY | | [...] [address] | [place] | [phone] | | [facility] | | [address] | | | - LABORATORY | | [...] ST. | [address] | [place], [place] | [phone] | | [facility] | | [address] | | | - LABORATORY | | [...] mL/min/1.73m2 | [facility] | | | [place] | RATE,ESTIMATED | | MEDICAL | | | | mL/min/1.94a5Wnhg than | | CENTER - | | [...] [address] | [place] | [phone] | | [facility] | | [address] | | | - LABORATORY | | [...] [address] | [place] | [phone] | | [facility] | | [address] | | | - LABORATORY | | [...] [address] | [place] | [phone] | | [facility] | | [address] | | | - LABORATORY | | [...] | 0.71 | 0.60 - 1.30 | [facility] | | | | | mg/dL | [facility] | | | | | | MEDICAL | | | | | | CENTER - | | | | | | LABORATORY | | + + + + + + | eGFR, | >60Comment: GLOMERULAR | >=60 | [facility] | | | non- | FILTRATION | mL/min/1.73m2 | [facility] | | | [place] | RATE,ESTIMATED | | MEDICAL | | | | mL/min/1.52a7Iyam than | | CENTER - | | [...] [address] | [place] | [phone] | | [facility] | | [address] | | | - LABORATORY | | [...] [address] | [place] | [phone] | | [facility] | | [address] | | | - LABORATORY | | [...] [address] | [place] | [phone] | | [facility] | | [address] | | | - LABORATORY | | [...] | | | | | | [facility] | | [...] | | | | | | [facility] | | [...] [address] | [place] | [phone] | | [facility] | | [address] | | | - LABORATORY | | [...] | 0.73 | 0.60 - 1.30 | [facility] | | | | | mg/dL | [facility] | | | | | | MEDICAL | | | | | | CENTER - | | | | | | LABORATORY | | + + + + + + | eGFR, | >60Comment: GLOMERULAR | >=60 | [facility] | | | non- | FILTRATION | mL/min/1.73m2 | [facility] | | | [place] | RATE,ESTIMATED | | MEDICAL | | | | mL/min/1.09j7Ipum than | | CENTER - | | [...] + | [facility] | [address] | [place], [place] | [phone] | | [facility] | | [address] | | | - LABORATORY | | [...] [address] | [place] | [phone] | | [facility] | | [address] | | | - LABORATORY | | [...] [address] | [place] | [phone] | | [facility] | | [address] | | | - LABORATORY | | [...] [address] | [place] | [phone] | | [facility] | | [address] | | | - LABORATORY | | [...] | 0.67 | 0.60 - 1.30 | [facility] | | | | | mg/dL | [facility] | | | | | | MEDICAL | | | | | | CENTER - | | | | | | LABORATORY | | + + + + + + | eGFR, | >60Comment: GLOMERULAR | >=60 | [facility] | | | non- | FILTRATION | mL/min/1.73m2 | [facility] | | | [place] | RATE,ESTIMATED | | MEDICAL | | | | mL/min/1.44d1Oosd than | | CENTER - | | [...] [address] | [place] | [phone] | | [facility] | | [address] | | | - LABORATORY | | [...] ST. | [address] | [place], [place] | [phone] | | [facility] | | [address] | | | - LABORATORY | | [...] (L) | 7 - 18 mg/dL | [facility] | | | | | | [facility] | | | | | | MEDICAL | | | | | | CENTER - | | | | | | LABORATORY | | + + + + + + | Creatinine | 0.57 (L) | 0.60 - 1.30 | [facility] | | | | | mg/dL | [facility] | | | | | | MEDICAL | | | | | | CENTER - | | | | | | LABORATORY | | + + + + + + | eGFR, | >60Comment: GLOMERULAR | >=60 | [facility] | | | non- | FILTRATION | mL/min/1.73m2 | [facility] | | | [place] | RATE,ESTIMATED | | MEDICAL | | | | mL/min/1.64y7Ofce than | | CENTER - | | [...] [address] | [place] | [phone] | | [facility] | | [address] | | | - LABORATORY | | [...] [address] | [place] | [phone] | | [facility] | | [address] | | | - LABORATORY | | [...] [address] | [place] | [phone] | | [facility] | | [address] | | | - LABORATORY | | [...] | | | | | mg/dL | [facility] | | | | | | MEDICAL | | | | | | CENTER - | | | | | | LABORATORY | | + + + + + + | eGFR, | >60Comment: GLOMERULAR | >=60 | [facility] | | | non- | FILTRATION | mL/min/1.73m2 | [facility] | | | Niger[place] | RATE,ESTIMATED | | MEDICAL | | | | mL/min/1.75t7Uimn than | | CENTER - | | [...] | | Total | | | [facility] | | [...] + | [facility] | [address] | [place] | [phone] | | [facility] | | [address] | | | - LABORATORY | | [...] | | | | PEPE HERNANDEZ MD ([id number]) | | | | | | on [...] [address] | [place] | [phone] | | [facility] | | [address] | | | - LABORATORY | | [...] + | [facility] | [address] | [place] | [phone] | | [facility] | | [address] | | | - LABORATORY | | [...] + | [facility] | [address] | [place], [place] | [phone] | | [facility] | | [address] | | | - LABORATORY | | [...] | small skin incision was made. 8 Nauruan paracentesis needle and sheath | | | [...] A small skin incision was made. 8 Nauruan paracentesis | | needle and sheath was [...] [address] | [place] | [phone] | | [facility] | | [address] | | | - LABORATORY | | [...] ST. | [address] | [place] | [phone] | | [facility] | | [address] | | | - LABORATORY | | [...] [address] | [place] | [phone] | | [facility] | | [address] | | | - LABORATORY | | [...] [address] | [place] | [phone] | | [facility] | | [address] | | | - LABORATORY | | [...] ST. | [address] | [place], [place] | [phone] | | [facility] | | [address] | | | - LABORATORY | | [...] [address] | [place] | [phone] | | [facility] | | [address] | | | - LABORATORY | | [...] (L) | 7 - 18 mg/dL | [facility] | | | | | | [facility] | | | | | | MEDICAL | | | | | | CENTER - | | | | | | LABORATORY | | + + + + + + | Creatinine | 0.51 (L) | 0.60 - 1.30 | [facility] | | | | | mg/dL | [facility] | | | | | | MEDICAL | | | | | | CENTER - | | | | | | LABORATORY | | + + + + + + | eGFR, | >60Comment: GLOMERULAR | >=60 | [facility] | | | non- | FILTRATION | mL/min/1.73m2 | [facility] | | | [place] | RATE,ESTIMATED | | MEDICAL | | | | mL/min/1.32e2Bqvs than | | CENTER - | | [...] ST. | [address] | [place], [place] | [phone] | | [facility] | | [address] | | | - LABORATORY | | [...] ST. | [address] | [place], [place] | [phone] | | [facility] | | [address] | | | - LABORATORY | | [...] [address] | [place] | [phone] | | [facility] | | [address] | | | - LABORATORY | | [...] + | [facility] | [address] | [place] | [phone] | | [facility] | | [address] | | | - LABORATORY | | [...] + | [facility] | [address] | [place], [place] | [phone] | | [facility] | | [address] | | | - LABORATORY | | [...] | Basophils | | K/uL | [facility] | | | | | [...] [address] | [place] | [phone] | | [facility] | | [address] | | | - LABORATORY | | [...] (L) | 7 - 18 mg/dL | [facility] | | | | | | [facility] | | | | | | MEDICAL | | | | | | CENTER - | | | | | | LABORATORY | | + + + + + + | Creatinine | 0.53 (L) | 0.60 - 1.30 | [facility] | | | | | mg/dL | [facility] | | | | | | MEDICAL | | | | | | CENTER - | | | | | | LABORATORY | | + + + + + + | eGFR, | >60Comment: GLOMERULAR | >=60 | [facility] | | | non- | FILTRATION | mL/min/1.73m2 | [facility] | | | [place] | RATE,ESTIMATED | | MEDICAL | | | | mL/min/1.28n0Owdv than | | CENTER - | | [...] + | [facility] | [address] | [place] | [phone] | | [facility] | | [address] | | | - LABORATORY | | [...] ST. | [address] | [place], [place] | [phone] | | [facility] | | [address] | | | - LABORATORY | | [...] - 1.030 | [facility] | | | [place], | | | [facility] | | [...] ST. | [address] | [place], [place] | [phone] | | [facility] | | [address] | | | - LABORATORY | | [...] MD | | | | | | ([id number]) on 11/01/2016 | | | | | [...] - 1.030 | [facility] | | | [place], | | | [facility] | | [...] [address] | [place] | [phone] | | [facility] | | [address] | | | - LABORATORY | | [...] [address] | [place] | [phone] | | [facility] | | [address] | | | - LABORATORY | | [...] [address] | [place] | [phone] | | [facility] | | [address] | | | - LABORATORY | | [...] [address] | [place] | [phone] | | [facility] | | [address] | | | - LABORATORY | | [...] [address] | [place] | [phone] | | [facility] | | [address] | | | - LABORATORY | | [...] + | [facility] | [address] | [place] | [phone] | | [facility] | | [address] | | | - LABORATORY | | [...] [address] | [place] | [phone] | | [facility] | | [address] | | | - LABORATORY | | [...] [address] | [place] | [phone] | | [facility] | | [address] | | | - LABORATORY | | [...] + | [facility] | [address] | [place], [place] | [phone] | | [facility] | | [address] | | | - LABORATORY | | [...] + | [facility] | [address] | [place] | [phone] | | [facility] | | [address] | | | - LABORATORY | | [...] [address] | [place] | [phone] | | [facility] | | [address] | | | - LABORATORY | | [...] [address] | [place] | [phone] | | [facility] | | [address] | | | - LABORATORY | | [...] + | [facility] | [address] | [place] | [phone] | | [facility] | | [address] | | | - LABORATORY | | [...] [address] | [place] | [phone] | | [facility] | | [address] | | | - LABORATORY | | [...] (L) | 7 - 18 mg/dL | [facility] | | | | | | [facility] | | | | | | MEDICAL | | | | | | CENTER - | | | | | | LABORATORY | | + + + + + + | Creatinine | 0.59 (L) | 0.60 - 1.30 | [facility] | | | | | mg/dL | [facility] | | | | | | MEDICAL | | | | | | CENTER - | | | | | | LABORATORY | | + + + + + + | eGFR, | >60Comment: GLOMERULAR | >=60 | [facility] | | | non- | FILTRATION | mL/min/1.73m2 | [facility] | | | [place] | RATE,ESTIMATED | | MEDICAL | | | | mL/min/1.57m7Oqjr than | | CENTER - | | [...] [address] | [place] | [phone] | | [facility] | | [address] | | | - LABORATORY | | [...] [address] | [place] | [phone] | | [facility] | | [address] | | | - LABORATORY | | [...] PDT | | | | | Starting [facility] 11/02/16 at 1249, | | | | [...] PDT | | | | | ONCE, [facility] 11/02/16 at 0100, For 1 | | [...] PDT | | | | | ONCE, [facility] 11/02/16 at 1715, For 1 | | [...] PDT | | | | | ONCE, [place] 11/05/16 at 0815, For 1 | | [...] | | | | | Intravenous, ONCE, [facility] 11/06/16 at | | AM PDT | [...] 8:34 | | | | | ONCE, [place] 11/05/16 at 0815, For 1 | | [...] 8:55 | | | | | ONCE, [facility] 11/06/16 at 0900, For 1 | | [...] | | | over 4 Hours, ONCE, [facility] 11/01/16 | | | | | [...] | | | | | Intravenous, ONCE, [facility] 10/31/16 at | | | | [...]
--- OUTSIDE RECORDS SUMMARY | ~2020-01-12 | XMS | Encounter Summary ---
Demographics + + + | Address | [address] | | | [place] [address] | + + + | Home Phone [...] + | Joanne Pham | ECON | [address] | | | | | [place] | | | | | [address] | | + + + + + | Viktor Son | EDDIE | Unknown | | + + + + + | Edd Gill | ECON | Unknown | | + + + + + | Conner Barber | ECON | Unknown | | + + + + + Care Team Providers + +------+ + | Care Net Making Supervisor Name | Role | Phone | + [...] + + | 09/07/ | Surgery | [facility] | Robel Taylor | DI: CT | | 2016 | | MED CTR IR INTRA OP | MD Char [address] [place] [address] | | | | | [address] | [place] | | | | | [place] | [address] | | | | | [address] | | | | | | [phone] | | | +--------+---------+ + + + [...] ascites and hyponatremia who was transferred from [facility]. She was found to have severe weakness [...] hemodynamically stable and is being discharged to [facility] with continued aldactone, lasix, blood pressure control for portal hypertension and lactulos e. Follow-up at [facility] with Juan Holguin. This patient's pathology report will be forwarded from Dr. Luis Miguel Bucio (pathologist in [place]). Code Status: Full Code Disposition: [facility] Discharge Condition: fair Follow-up Information Follow up with Trixie Rose PA-C In 1 week. Specialty: Internal Medicine Contact information: [address] [place] [address] Discharge Medications [...] by: Jose Carlos Albert MD, 09/10/2015 11:16 [facility] documented in this encounter Medications at [...] Albert MD - 09/09/2015 5:37 PM PDT [facility] PMG Hospitalist Progress Note Shaila Son [...] Product Code RBC Leukocytes Reduced UNIT # [id number] UNIT ABO O UNIT RH POS CROSSMATCH [...] above. Jose Carlos Albert 09/09/2015 17:37 [facility] Portions of this chart may have been created with [employer] voice recognition software. Occasi onal wrong-word or sound-alike substitutions may have occurred due to the inherent gallardo itations of voice recognition software. Please read the chart carefully and recognize, using context, where these substitutions have occurred Jose Carlos Garcia MD - 09/08/2015 5:35 PM PDT [facility] PMG Hospitalist Progress Note Shaila Son [...] above. Jose Carlos Albert 09/08/2015 17:35 [facility] Portions of this chart may have been created with [employer] voice recognition software. Occasi onal wrong-word or sound-alike substitutions may have occurred due to the inherent gallardo itations of voice recognition software. Please read the chart carefully and recognize, using context, where these substitutions have occurred itchetana, Jose Carlos Chen MD - 09/07/2015 5:42 PM PDT [facility] PMG Hospitalist Progress Note Shaila Son [...] Product Code RBC Leukocytes Reduced UNIT # [id number] UNIT ABO O UNIT RH POS CROSSMATCH [...] A p reliminary report was sent by [employer] on 09/06/2015 at 7:03 PM with no [...] above. Jose Carlos Albert 09/07/2015 17:42 [facility] Portions of this chart may have been created with [employer] voice recognition software. Occasi onal wrong-word or sound-alike substitutions may have occurred due to the inherent gallardo itations of voice recognition software. Please read the chart carefully and recognize, using context, where these substitutions have occurred arneel, Grant Pardo MD - 09/06/2015 2:33 PM PDT [facility] PMG Hospitalist Progress Note Shaila Son [...] noting at the time of discharge from [facility] she was gi shawn 5 additional [...] outlined above. Grant Lomas 09/06/2015 14:33 [facility] Portions of this chart may have been created with [employer] voice recognition software. Occasi onal wrong-word or sound-alike substitutions may have occurred due to the inherent gallardo itations of voice recognition software. Please read the chart carefully and recognize, using context, where these substitutions have occurred arGrant shaikh MD - 0 09/05/2015 2:46 PM PDT [facility] PMG Hospitalist Progress Note Shaila Son [...] as such I do want to volume vacuum filter operator someone in with her crit of 22 without active bleeding I'm going to give a unit of blood laura griffin and potentially a second unit tomorrow a.m. ending on her response to transfusion. T his will volume vacuum filter operator and hopefully improve her functional status in [...] outlined above. Grant Lomas 09/06/2015 14:46 [facility] Portions of this chart may have been created with [employer] voice recognition software. Occasi onal wrong-word or sound-alike substitutions may have occurred due to the inherent gallardo itations of voice recognition software. Please read the chart carefully and recognize, using context, where these substitutions have occurred arker, Grant Pardo MD - 0 09/04/2015 2:57 PM PDT [facility] PMG Hospitalist Progress Note Shaila Son [...] outlined above. Grant Lomas 09/06/2015 14:58 [facility] Portions of this chart may have been created with [employer] voice recognition software. Occasi onal wrong-word or [...] Mace MD - 09/03/2015 8:47 AM PDT [facility] PMG Hospitalist Progress Note Shaila Son [...] and smear. Adames awaiting the records from [facility] [...] sam was made to accommodate the 8 Ug[place] paracentesis trocar catheter, which were advanced into [...] outlined above. Grant Lomas 09/03/2015 8:48 [facility] Portions of this chart may have been created with [employer] voice recognition software. Occasi onal wrong-word or [...] mi ght be different from the original. [facility] PMG Hospitalist Progress Note Shaila Son [...] outlined above. Grant Lomas 09/02/2015 9:45 [facility] Portions of this chart may have been created with [employer] voice recognition software. Occasi onal wrong-word or sound-alike substitutions may have occurred due to the inherent gallardo itations of voice recognition software. Please read the chart carefully and recognize, using context, where these substitutions have occurred documented in this [facility] H&P Notes Robel Taylor MD - 09/08/2015 [...] by: Robel Taylor MD, 09/08/2015 11:59 [facility]AL[facility]lectronically signed by Robel Taylor MD at 0 09/08/2015 12:00 PM PDTParker, Grant Pardo MD - 09/01/2015 6:43 PM PDTFormatting of this note mi ght be different from the original. Patient: Shaila Son : 1970: Age: 45 y.o. MedRec: [id number] Admission date: 09/01/2015 Hospital day #: 0 Physician author: Grant Lomas MD HISTORY AND PHYSICAL CHIEF COMPLAINT: Patient transferred to this facility from [facility] without emergency room rec ords or labs [...] of 4 L paracentesis in 03/29/2015 at [facility] History of seizures at the patient's order from [facility] being divalproex DR 150 mg 3 [...] at the time of discharge 04/01/2015 from [facility] was tete ing Cefpodoxime 200 mg [...] CKTOTAL No results for input(s): PHART, PO2ART, DYH7YYD, RYK6MHH, BEART, L9AGHTBM in the last 168 h ours. Xray [...] determined once additional information is obtained. Grant Loams MD Electronically signed by: Grant Lomas MD 09/01/2015 18:43 [facility] Portions of this chart may have been created with [employer] voice recognition software. Occasi onal wrong-word or sound-alike substitutions may have occurred due to the inherent gallardo itations of voice recognition software. Please read the chart carefully and recognize, using context, where these substitutions have occurred documented in this enc ounter Miscellaneous Notes Plan of Care - Janeen Srivastava MSW - 09/10/2015 11:49 AM PDTPatient to transfer [facility]. This CM faxed over the SNF transfer orders, PASRR, and RXs. All other documentation is placed in manila folder and in ghost chart. This CM spoke with Irena who states that she will look over the orders and call this write r back with a brass pickler time. Electronically signed by: HANNAH Contreras 09/10/2015 11:52 Spoke with Josephine who reported a brass pickler time of 1300. This Cm let patient [...] Albert MD Consultants: none PCP: Juan Holguin [facility] transferring to: [facility] Provider after transfer: Per SNF CODE STATUS: [x] Attempt CPR [] Do not resuscitate If patient is pulseless and not breathing, RN/MEMBER SERVICE SPECIALIST may pronounce . Advanced Directives included: [] [...] for this patient. Diet: [] As tolerated SALESPERSON AUTOMOBILES may upgrade or downgrade diet as condition [...] Whole [] Thin Liquids [] Cut-up [] [place] Thick [] Advanced Chopped [] Honey Thickened [] Chopped [] Advanced Ground [] 1:1 feedings [] Ground/Pureed [] Other: Tube Feedings: [] PEG [] GT [] JT [] NGT [] Formula type: (Wind Power Project Manager may change/substitute if indicated). [] Continuous Rate: [...] [x] OT Evaluation & Management for: [] SALESPERSON AUTOMOBILES Evaluation &Management for: [] Other: Wound/Skin Care: [...] Additional Orders/Instructions: Physician's signature: 09/10/2015 11:13 [facility] USE ONLY: [] Admitting orders verbally reviewed with Admitting Physician, modified where appropriate, and approved. Verbal Order from Date: Time: _ RN name: RN signature: [] Admitting orders reviewed, modified where appropriate, and approved. Physician's signature:____Jose Carlos Albert Date: _Time: lan of Care - [facility] Steve panda RN - 09/10/2015 8:06 [...] be free of falls by 09/06/2015. 6.) Hsaila will experience a decrease in ascites formation [...] weight-bearing History of Presenting Problem: Transfer from [facility], no records or labs available. P t unable to provide history. Reportedly stopped medications x 1 month ago. Hx 4L paracente sis @ [facility] 03/23; hx seizures, chronic anemia. Now- [...] for technique w/ IV pole Level of [place] : contact guard assist, verbal cues required Assistive Device: (IV stand) Distance (feet): 300 Transfers Using IV stand for support Sit-Stand, Level of [place]: supervision required Stand-Sit, Level of [place]: supervision required Gtm-[id number]-Mjc, Assistive Device: none Safety Issues: balance decreased during turns, step length decreased, loses balance backwar d Impairments: impaired balance, strength decreased, decreased flexibility, postural control impaired, muscle tone abnormal Bed Mobility Assistive Device: bed rails Supine to Sit, Level of [place]: minimum assist (75% patient effort) Sit to Supine, Level of [place]: modified independence Impairments: impaired balance, strength decreased [...] Activity Type: supine to sit/sit to supine [place] Level: independent Assistive Device: none Time to Achieve: 5 - 7 days Goal Status: progressing toward goal, revised Transfer Training Goal, Activity Type: sit to stand/stand to sit [place] Level: modified independence Assistive Device: 2 wheeled walker (FWW) Time to Achieve: 5 - 7 days Goal Status: progressing toward goal, revised Gait Training Goal, [place] Level: modified independence Assistive Device: 2 wheeled [...] Team Goals & Evaluation PROBLEM-RELATED GOALS: 1.) Shiala be free of injury related to seizure [...] Treatment Note Patient Information Patient Name: Shaila Sno Date of : 1970 Age: 45 y.o. [...] FWW with SBA Ambulated an est 250'. WATER AND SEWER SYSTEMS SUPERINTENDENT bro ught a different IV pole to provide safer ambulating with pole to/from bathroom. Pt report s and nursing confirms that pt is Independent in her room. Education: Safety with functional mobility Treatment Provided: ADL and functional mobility training. Patient Status/Goals Reflects last filed data of patient status; may be from multiple contributors. ADLs Grooming, Level of [place]: supervision required Assistive Device: none Grooming Assess/Train, [...] therapies. She stood at the sink to natural gas plant technician her te eth with supervision, Pt fatigued [...] overall everything was oka y. Patient is Methodist and I wished her good health. Spiritual Intervention: Patient welcomed warehouser visit and I wished her good health. Spiritual Outcomes: Patient thank me for the visit. Spiritual Goals/Follow up: Autocad Designer will continue to provide ongoing emotional/spirtiual support for patient as requested. lan of Car Juan Moore, ELECTRON BEAM WELDING MACHINE OPERATOR - 09/07/2015 12:49 PM PDTProblem: Patient Care [...] weight-bearing History of Presenting Problem: Transfer from [facility], no records or labs available. P t unable to provide history. Reportedly stopped medications x 1 month ago. Hx 4L paracente sis @ [facility] 03/23; hx seizures, chronic anemia. Now- [...] on L during initial contact. Level of [place] : supervision required Assistive Device: 2 wheeled walker (FWW) Distance (feet): 120 Transfers Sit-Stand, Level of [place]: supervision required Stand-Sit, Level of [place]: supervision required Lyr-[id number]-Brt, Assistive Device: 2 wheeled walker (FWW) Toilet, Assistive Device: none (recommend FWW as pt is slightly unsteady on her feet) Safety Issues: balance decreased during turns, step length decreased, loses balance backwar d Impairments: muscle tone abnormal, strength decreased, impaired balance, coordination impai red Bed Mobility Assistive Device: bed rails Supine to Sit, Level of [place]: modified independence Sit to Supine, Level of [place]: independent Impairments: impaired balance, strength decreased Balance [...] in lower legs and ankles STG GOALS [place] Level: independent Assistive Device: none Time to Achieve: 2 days Goal Status: new [place] Level: modified independence Assistive Device: 2 wheeled walker (FWW) Time to Achieve: 2 days Goal Status: new Gait Training Goal, [place] Level: modified independence Assistive Device: 2 wheeled [...] PTA, 09/07/2015 12:45 lan of Care - [facility] Paulina gonzalez OT - 09/07/2015 12:32 PM [...] from multiple contributors. ADLs LB, Level of [place]: supervision required, set up required LB Dressing [...] is medially stable for discharge. Cathie with [facility] does request for the doctor to include an order for Ativan PO and IM o n her SNF discharge order for possible Seizure activity. Otherwise no concerns with taking h er. Dr Lomas notified of the above information. Electronically signed by: Yumiko Anderson RN 09/06/2015 10:01 [facility] notified patient will be medially stable for discharge tomorrow, Sunday , 09/07/2015. Patient also notified of the above information. Electronically signed by: Yumiko Anderson RN 09/06/2015 11:40 Updated doctor progress notes faxed to [facility] per her request, fax # . Electronically [...] is a 45 y.o. who transferred from [facility], no records or labs available. Pt unable [...] stairs at home. Transfers Sit-Stand, Level of [place]: supervision required Toilet, Assistive Device: none (recommend FWW as pt is slightly unsteady on her feet) Safety Issues: balance decreased during turns, step length decreased, loses balance backwar d Impairments: muscle tone abnormal, strength decreased, impaired balance, coordination impai red Bed Mobility Assistive Device: bed rails Supine to Sit, Level of [place]: modified independence Sit to Supine, Level of [place]: independent Impairments: impaired balance, strength decreased Balance [...] in lower legs and ankles STG GOALS [place] Level: independent Assistive Device: none Time to Achieve: 2 days Goal Status: new [place] Level: modified independence Assistive Device: 2 wheeled walker (FWW) Time to Achieve: 2 days Goal Status: new Gait Training Goal, [place] Level: modified independence Assistive Device: 2 wheeled [...] Suzette Arcos OT, 09/05/2015 15:20 lan of [facility] - Yumiko Quevedo RN - 09/05/2015 1:33 PM PDTDischarge planning: This CM discussed with patient the option of going to a SNF for physical therapy Rehab. She agrees and would like to go to [facility] as she is from [place] and family and friends could visit. If [facility] does not have any beds available, she is open to [place]. Referral has been faxed to [facility]. Yumiko Anderson RN 09/05/2015 12:23 lan of [facility] Steve Salamanca RN - 09/05/2015 5:09 AM [...] who presents to therapy for Transfer from [facility], no records or labs available. Pt unable to provid e history. Reportedly stopped medications x 1 month ago. Hx 4L paracentesis @ [facility] 03/23; hx seizures, chronic anemia. Now- [...] from multiple contributors. ADLs Toileting, Level of [place]: contact guard assist, verbal cues required, set up requir ed Assistive Device: grab bar Toileting Assess/Train, Position: sitting, supported standing Toileting Assess/Train, Impairments: impaired balance, strength decreased, coordination imp aired Cognitive Mood/Behavior: hypoactive (quiet, withdrawn), flat affect Orientation: oriented x 4 Speech: (very soft) Transfers Toilet, Level of [place]: contact guard assist, verbal cues required, set [...] alarm in place. lan of Care - [facility] Kristen chow RN - 09/03/2015 6:36 PM [...] neurologic deterior ation7. pain8. renal dysfunction9. respiratory [id number]. situational response Intervention: Promote Neurologic Homeostasis Patient [...] is the land line at [place] as there is no Cell p radha receptionist secretary out there) #[phone]). He said that the living situation is as follows. She has a room in her Aunt Angy's home located in [place], [place] that she doesn't use very o ften where four of her Cousins live as well. She normally lives with Edd in a mobile that is located below Aunt Angy's home. There are three steps leading to the entrance on the [facility]. Trixie Rose PA-C at the [facility] is her PCP. I called brian amaro and had them place her name on Shaila's chart. She uses the pharmacy located at [facility] first then uses the [facility] second. She owns a cane, a four wheel walker, hand rails by the tub/shower and toilet, a hand held shower head and uses a metal fold up chair in the tub. She has used the [facility] for most of her DME and then would li ke to use [facility] located in [place], [place]. They said that [facility] would be fine if they would come out. They said that the four Cousins staying at Aunt [place] home are all drinking all the time. Edd said that his home would be a safe place for H H to visit though. Edd said that she would go back to [facility] as her "Plan B" as she has [...] with her Drug and Alcohol Counselor, Andreia ([phone]), from [facility] and that she had helped arrange for her to come to [facility]. There was a questions as to [...] liquid diet w/ 1800 ml fluid restriction. [facility] labs pending. Anticipate paracentesis today. documented in [...] | | | preparation was performed by [facility] [id number] | | | [address] [place] [address] and [facility], [place] | | | [address] [place] [address]. Professional | | | interpretation was performed by [facility] | | | Center Branch - [address] [place] [address] (Medical | | | Director: Bebeto Ruiz M.D.; [facility]#:[id number]).8 Diagnostician: | | | Gladis Johnson M.S., KAVIN(ASCP), [facility] Wait Staff | | | Diagnostician: Bebeto Ruiz MD [...] [address] | [place] | [phone] | | [facility] | | [address] | | | - LABORATORY | | [...] [address] | [place] | [phone] | | [facility] | | [address] | | | - LABORATORY | | [...] 0.51 (L) | 0.60 - 1.30 | [facility] | | | | | mg/dL | [facility] | | | | | | MEDICAL | | | | | | CENTER - | | | | | | LABORATORY | | + + + + + + | eGFR, | >60Comment: GLOMERULAR | >=60 | [facility] | | | non- | FILTRATION | mL/min/1.73m2 | [facility] | | | [place] | RATE,ESTIMATED | | MEDICAL | | | | mL/min/1.07b8Nhag than | | CENTER - | | [...] + | [address] | [address] | [place] | [phone] | | [facility] | | [address] | | | - LABORATORY | | [...] + + + | UNIT # | [id number] | | [facility] | | | | [...] [place] | | | [facility] | | [address] | | | - BLOOD BANK | [...] [address] | [place] | [phone] | | [facility] | | [address] | | | - LABORATORY | | [...] | | | | | mmol/L | [facility] | | | | | | MEDICAL | | | | | | CENTER - | | | | | | LABORATORY | | + + + + + + | K | 3.3 (L) | 3.5 - 5.1 | [facility] | | | | | mmol/L | [facility] | | | | | [...] mL/min/1.73m2 | [facility] | | | [place] | RATE,ESTIMATED | | MEDICAL | | | | mL/min/1.61n2Rfiw than | | CENTER - | | [...] [address] | [place] | [phone] | | [facility] | | [address] | | | - LABORATORY | | [...] | | Neutrophils | | | [facility] | | [...] ST. | [address] | [place], [place] | [phone] | | [facility] | | [address] | | | - LABORATORY | | [...] [address] | [place] | [phone] | | [facility] | | [address] | | | - LABORATORY | | [...] ST. | [address] | [place], [place] | [phone] | | [facility] | | [address] | | | - LABORATORY | | [...] mL/min/1.73m2 | [facility] | | | [place] | RATE,ESTIMATED | | MEDICAL | | | | mL/min/1.95c3Oaue than | | CENTER - | | [...] mg/dL | [facility] | | | | | | MEDICAL [...] [address] | [place] | [phone] | | [facility] | | [address] | | | - LABORATORY | | [...] [address] | [place] | [phone] | | [facility] | | [address] | | | - LABORATORY | | | | + + + + + Surgical Pathology Exam (09/08/2015 12:00 AM PDT) + + | Specimen | + + | Soft tissue sample | | (specimen) | + + + + + | Narrative | Performed At | + + + | SPECIMEN(S): A LIVER NEEDLE BIOPSY SPECIMEN SOURCE: A. LIVER | [facility] | | NEEDLE BIOPSY CLINICAL HISTORY: [...] may not be | | | fully medical billing representative should be considered. Noninvasive MRI studies | | | may help to further characterize the lesion if clinical concern | | | remains. Results discussed with Dr. Albert by Dr. More on | | | September 09 at 3:10 p.m. [facility]:C2NR GROSS DESCRIPTION: The specimen, | | | [...] for | | | neoplastic hepatocellular nodules. [facility] PERFORMING LABORATORY: | | | Tissue processing and slide preparation were performed by [facility] | | | [facility], [address] [place] [address], [address], [place] [address] | | | ([employer]arratte Operator: Bebeto Ruiz M.D.; CLIA#: [id number]). | | | Professional interpretation was performed by [facility] | | | [facility], [address] [place], | | | [place] [address] (Barratte Operator: Jonny Ernandez M.D.; [facility]#: | | | [id number]). Diagnostician: Ana M Holm MD Pathologist | [...] | | | | | | Performed: [place] | | | | | | [facility] | | | | | | [place], [address], | | | | | | [place] [address] | | | | + + + [...] [address] | [place] [address] | [phone] | + + + + + PTT [...] [address] | [place] | [phone] | | [facility] | | [address] | | | - LABORATORY | | [...] + | [facility] | [address] | [place] | [phone] | | [facility] | | [address] | | | - LABORATORY | | [...] | Neutrophils | | K/uL | [facility] | [address] | [place] | [phone] | | [facility] | | [address] | | | - LABORATORY | | [...] mL/min/1.73m2 | [facility] | | | [place] | RATE,ESTIMATED | | MEDICAL | | | | mL/min/1.03s8Tyvl than | | CENTER - | | [...] + | [facility] | [address] | [place] | [phone] | | [facility] | | [address] | | | - LABORATORY | | [...] + + + | UNIT # | [id number] | | [facility] | | | | [...] [place] | | | [facility] | | [address] | | | - BLOOD BANK | [...] | | | report was sent by [employer] on 09/06/2015 at 7:03 PM with no [...] | | preliminary report was sent by [employer] on 09/06/2015 at 7:03 PM with | [...] | |A preliminary report was sent by [employer] on 09/06/2015 at 7:03 PM with no [...] [address] | [place] | [phone] | | [facility] | | [address] | | | - LABORATORY | | [...] | | | | mmol/L | [facility] | | | | [...] 18 mg/dL | [facility] | | | | | | [facility] | | | | | | MEDICAL | | | | | | CENTER - | | | | | | LABORATORY | | + + + + + + | Creatinine | 0.59 (L) | 0.60 - 1.30 | [facility] | | | | | mg/dL | [facility] | | | | | | MEDICAL | | | | | | CENTER - | | | | | | LABORATORY | | + + + + + + | eGFR, | >60Comment: GLOMERULAR | >=60 | [facility] | | | non- | FILTRATION | mL/min/1.73m2 | [facility] | | | [place] | RATE,ESTIMATED | | MEDICAL | | | | mL/min/1.20v0Qhnk than | | CENTER - | | [...] + | [facility] | [address] | [place], [place] | [phone] | | [facility] | | [address] | | | - LABORATORY | | [...] [place] | | | [facility] | | [address] | | | - BLOOD BANK | [...] + + + | UNIT # | [id number] | | [facility] | | | | [...] [place] | | | [facility] | | [address] | | | - BLOOD BANK | [...] + + + | UNIT # | [id number] | | [facility] | | | | [...] ST. | [address] | [place] | | | [facility] | | [address] | | | - BLOOD BANK | [...] [address] | [place] | [phone] | | [facility] | | [address] | | | - LABORATORY | | [...] (L) | 7 - 18 mg/dL | [facility] | | | | | | [facility] | | | | | | MEDICAL | | | | | | CENTER - | | | | | | LABORATORY | | + + + + + + | Creatinine | 0.72 | 0.60 - 1.30 | [facility] | | | | | mg/dL | [facility] | | | | | | MEDICAL | | | | | | CENTER - | | | | | | LABORATORY | | + + + + + + | eGFR, | >60Comment: GLOMERULAR | >=60 | [facility] | | | non- | FILTRATION | mL/min/1.73m2 | [facility] | | | [place] | RATE,ESTIMATED | | MEDICAL | | | | mL/min/1.20o9Lndw than | | CENTER - | | [...] + | [facility] | [address] | [place] | [phone] | | [facility] | | [address] | | | - LABORATORY | | [...] + | [facility] | [address] | [place] | [phone] | | [facility] | | [address] | | | - LABORATORY | | [...] ST. | [address] | [place] | [phone] | | [facility] | | [address] | | | - LABORATORY | | [...] [address] | [place] | [phone] | | [facility] | | [address] | | | - LABORATORY | | [...] (L) | 7 - 18 mg/dL | [facility] | | | | | | [facility] | | | | | | MEDICAL | | | | | | CENTER - | | | | | | LABORATORY | | + + + + + + | Creatinine | 0.54 (L) | 0.60 - 1.30 | [facility] | | | | | mg/dL | [facility] | | | | | | MEDICAL | | | | | | CENTER - | | | | | | LABORATORY | | + + + + + + | eGFR, | >60Comment: GLOMERULAR | >=60 | [facility] | | | non- | FILTRATION | mL/min/1.73m2 | [facility] | | | [place] | RATE,ESTIMATED | | MEDICAL | | | | mL/min/1.00l9Lpop than | | CENTER - | | [...] [address] | [place] | [phone] | | [facility] | | [address] | | | - LABORATORY | | [...] ST. | [address] | [place] | [phone] | | [facility] | | [address] | | | - LABORATORY | | [...] | | | | | | | [id number] | | | | | | Source [...] | | | | | | [place] | | | | | | [facility], [address] | | | | | | [address] [place], [place] [address] [address] | | | | + + + [...] [address] | [place] [address] | [phone] | + + + + + Ammonia [...] [address] | [place] | [phone] | | [facility] | | [address] | | | - LABORATORY | | [...] mL/min/1.73m2 | [facility] | | | [place] | RATE,ESTIMATED | | MEDICAL | | | | mL/min/1.28n8Kmzi than | | CENTER - | | [...] + | [facility] | [address] | [place] | [phone] | | [facility] | | [address] | | | - LABORATORY | | [...] [address] | [place] | [phone] | | [facility] | | [address] | | | - LABORATORY | | | | + + + + + Medical Cytology (09/03/2015 12:00 AM PDT) + + | Specimen | + + | | + + + + + | Narrative | Performed At | + + + | ORDERING PHYSICIAN: Grant Lomas MD PATIENT NAME: [facility] | | SHAILA ALMEIDA GENDER: Romulo [...] | | | interpretation was performed by [facility] - [facility] | | | Center Branch - [address] [place] [address] (Medical | | | Director: Bebeto Ruiz M.D.; [facility]#:[id number]).8 Technical | | | preparation was performed by [facility] [address] [facility] | | | [address] [place] [address] and [facility], [place] | | | [address] [place] [address]. Diagnostician: | | | Gladis Johnson M.S., KAVIN([facility]), [facility] Wait Staff | | | Diagnostician: Ana M Holm [...] sam was made to accommodate the 8 Ugandan paracentesis trocar | | | catheter, which [...] made to accommodate the 8 | | [place] paracentesistrocar catheter, which were advanced into the [...] + + | Performing | Address | City/State/[facility] | Phone Number | | Organization [...] | | | | | | | [id number] | | | | | | Source [...] | | | | | | [place] | | | | | | [facility], [address] | | | | | | [place] [address] | | | | + + + [...] [address] | [place] [address] | [phone] | + + + + + Culture, [...] + | [facility] | [address] | [place] | [phone] | | [facility] | | [address] | | | - LABORATORY | | [...] ST. | [address] | [place], [place] | [phone] | | [facility] | | [address] | | | - LABORATORY | | [...] [address] | [place] | [phone] | | [facility] | | [address] | | | - LABORATORY | | [...] [address] | [place] | [phone] | | [facility] | | [address] | | | - LABORATORY | | [...] [address] | [place] | [phone] | | [facility] | | [address] | | | - LABORATORY | | [...] + + + | Color, Body | [place] | | [facility] | | | Fluid [...] [address] | [place] | [phone] | | [facility] | | [address] | | | - LABORATORY | | [...] [place] | | | | | | [address] | | | | + + + [...] [address] | [place] [address] | [phone] | + + + + + Ferritin [...] + | [facility] | [address] | [place] | [phone] | | [facility] | | [address] | | | - LABORATORY | | [...] [address] | [place] | [phone] | | [facility] | | [address] | | | - LABORATORY | | [...] + | [facility] | [address] | [place] | [phone] | | [facility] | | [address] | | | - LABORATORY | | [...] [address] | [place] | [phone] | | [facility] | | [address] | | | - LABORATORY | | [...] + + | [facility] | [address] | [place] | [phone] | | [facility] | | [address] | | | - LABORATORY | | [...] [place] | | | | | | [address] | | | | + + + [...] [facility] | [address] | [place] [address] | [phone] | + + + + + Loreime [...] [address] | [place] | [phone] | | [facility] | | [address] | | | - LABORATORY | | [...] ST. | [address] | [place] | [phone] | | [facility] | | [address] | | | - LABORATORY | | [...] [address] | [place] | [phone] | | [facility] | | [address] | | | - LABORATORY | | [...] (L) | 7 - 18 mg/dL | [facility] | | | | | | [facility] | | | | | | MEDICAL | | | | | | CENTER - | | | | | | LABORATORY | | + + + + + + | Creatinine | 0.54 (L) | 0.60 - 1.30 | [facility] | | | | | mg/dL | [facility] | | | | | | MEDICAL | | | | | | CENTER - | | | | | | LABORATORY | | + + + + + + | eGFR, | >60Comment: GLOMERULAR | >=60 | [facility] | | | non- | FILTRATION | mL/min/1.73m2 | [facility] | | | [place] | RATE,ESTIMATED | | MEDICAL | | | | mL/min/1.84o2Cctj than | | CENTER - | | [...] ST. | [address] | [place] | [phone] | | [facility] | | [address] | | | - LABORATORY | | [...] [address] | [place] | [phone] | | [facility] | | [address] | | | - LABORATORY | | [...] [address] | [place] | [phone] | | [facility] | | [address] | | | - LABORATORY | | [...] - 1.030 | [facility] | | | [place], | | | [facility] | | [...] [address] | [place] | [phone] | | [facility] | | [address] | | | - LABORATORY | | | | + + + + + Medical Cytology (09/02/2015 12:00 AM PDT) + + | Specimen | + + | | + + + + + | Narrative | Performed At | + + + | ORDERING PHYSICIAN: Grant Lomas MD PATIENT NAME: [facility] PATHOLOGY | | SHAILA ALMEIDA [...] | | | interpretation was performed by [facility] | | | [facility] - [address] [place] [address] (Medical | | | Director: Bebeto Ruiz M.D.; CLIA#:[id number]).8 Technical | | | preparation was performed by [facility] | | | [place] [address] and [facility] | | | [address] [facility] [place] [address]. Diagnostician: | | | Gladis Johnson M.S., [place]([facility]), [facility] Wait Staff | | | Diagnostician: Ana M Holm MD Pathologist Electronically | | | Signed 09/03/2015 | | + + + + +---------+ + + | Performing | Address | City/State/[facility]ercode | Phone Number | | Organization [...] | | Blood in | | | [facility] | | | 3rd | [...] + | [facility] | [address] | [place] | [phone] | | [facility] | | [address] | | | - LABORATORY | | [...] [address] | [place] | [phone] | | [facility] | | [address] | | | - LABORATORY | | [...] + | [facility] | [address] | [place] | [phone] | | [facility] | | [address] | | | - LABORATORY | | [...] 0.48 (L) | 0.60 - 1.30 | [facility] | | | | | mg/dL | [facility] | | | | | | MEDICAL | | | | | | CENTER - | | | | | | LABORATORY | | + + + + + + | eGFR, | >60Comment: GLOMERULAR | >=60 | [facility] | | | non- | FILTRATION | mL/min/1.73m2 | [facility] | | | [place] | RATE,ESTIMATED | | MEDICAL | | | | mL/min/1.80z7Peix than | | CENTER - | | [...] [address] | [place] | [phone] | | [facility] | | [address] | | | - LABORATORY | | [...] | Monocytes | | K/uL | [facility] | | | | [...] [address] | [place] | [phone] | | [facility] | | [address] | | | - LABORATORY | | [...] [place] | | | [facility] | | [address] | | | - BLOOD BANK | [...] | | chromogenic agar method | | [facility] | | | | | | MEDICAL [...] [address] | [place] | [phone] | | [facility] | | [address] | | | - LABORATORY | | [...]
--- OUTSIDE RECORDS SUMMARY | ~2020-01-12 | XMS | Encounter Summary ---
Demographics + + + | Address | [address] | | | [place] [address] | + + + | Home Phone | | + + + | Preferred Language | Unknown | + + + | Marital Status | Single | + + + | Caodaism Affiliation | 1041 | + + + | Race | or | + + + | Ethnic Group | Not or | + + + Author + + + | Author | [facility] | | | and [place] | + + + | Organization | [facility] | | | and [place] | + + + | Address | Unknown | + + + | Phone | Unavailable | + + + Support + + + + + | Name | Relationship | Address | Phone | + + + + + | Joanne Pham | ECON | [address] | | | | | [place] | | | | | [address] | | + + + + + | Viktor Son | EDDIE | Unknown | | + + + + + | Edd Gill | ECON | Unknown | | + + + + + | Conner Barber | ECON | Unknown | | + + + + + Care Team Providers + +------+ + | Care Tailor [employer] Name | Role | Phone | + [...] + + | 08/31/ | Hospital | [facility] | Marialuisa Roman, | Alcohol dependence | | 2016 - | Encounter | [facility] | [address] | with intoxication | | | | [address] [place] | [place], [place] | with complication | | 09/09/ | | [place] [address] | [id number] | (HCC) (Primary Dx); | | 2015 | | [phone] | | Anemia, unspecified | | | | | Grant Lomas MD | type; Ascites due to | | | | | [address] | alcoholic cirrhosis | | | | | [place], [place] | (HCC); | | | | [...] ascites and hyponatremia who was transferred from [facility]. She was found to have severe [...] hemodynamically stable and is being discharged to [facility] with continued aldactone, lasix, blood pressure control for portal hypertension and lactulos e. Follow-up at [facility] with Juan Holguin. This patient's pathology report will be forwarded from Dr. Luis Miguel Bucio (pathologist in [place]). Code Status: Full Code Disposition: [facility] Discharge Condition: fair Follow-up Information Follow up with Trixie Rose PA-C In 1 week. Specialty: Internal Medicine Contact information: [address] [address] Discharge [...] Albert MD - 09/09/2015 5:37 PM PDT [facility] Hospitalist Progress Note Shaila Son is [...] Product Code RBC Leukocytes Reduced UNIT # [id number] UNIT ABO O UNIT RH POS CROSSMATCH [...] outlined above. Jose Carlos Albert 09/09/2015 17:37 [facility] Portions of this chart may have been created with [employer] voice recognition software. Occasi onal wrong-word or sound-alike substitutions may have occurred due to the inherent gallardo itations of voice recognition software. Please read the chart carefully and recognize, using context, where these substitutions have occurred itchell, Jose Carlos Chen MD - 09/08/2015 5:35 PM PDT [facility] Hospital[facility] Progress Note Shaila Son is [...] outlined above. Jose Carlos Albert 09/08/2015 17:35 [facility] Portions of this chart may have been created with [employer] voice recognition software. Occasi onal wrong-word or sound-alike substitutions may have occurred due to the inherent gallardo itations of voice recognition software. Please read the chart carefully and recognize, using context, where these substitutions have occurred Jose Carlos Garcia MD - 09/07/2015 5:42 PM PDT [facility] Hospital[facility] Progress Note Shaila Son is [...] Product Code RBC Leukocytes Reduced UNIT # [id number] UNIT ABO O UNIT RH POS CROSSMATCH [...] A p reliminary report was sent by [email or web address] on 09/06/2015 at 7:03 PM with no [...] outlined above. Jose Carlos Albert 09/07/2015 17:42 [facility] Portions of this chart may have been created with [employer] voice recognition software. Occasi onal wrong-word or sound-alike substitutions may have occurred due to the inherent gallardo itations of voice recognition software. Please read the chart carefully and recognize, using context, where these substitutions have occurred Grant Mace MD - 09/06/2015 2:33 PM PDT [facility] Hospital[facility] Progress Note Shaila Son is [...] noting at the time of discharge from [facility] she was gi shawn 5 additional [...] as outlined above. Grant Lomas 09/06/2015 14:33 [facility] Portions of this chart may have been created with [employer] voice recognition software. Occasi onal wrong-word or sound-alike substitutions may have occurred due to the inherent gallardo itations of voice recognition software. Please read the chart carefully and recognize, using context, where these substitutions have occurred arker, Grant Pardo MD - 0 09/05/2015 2:46 PM PDT [facility] Hospitalist Progress Note Shaila Son is [...] as such I do want to volume senior digital designer someone in with her crit of 22 without active bleeding I'm going to give a unit of blood ove rnight and potentially a second unit tomorrow a.m. ending on her response to transfusion. T his will volume senior digital designer and hopefully improve her functional status in [...] as outlined above. Grant Lomas 09/06/2015 14:46 [facility] Portions of this chart may have been created with [employer] voice recognition software. Occasi onal wrong-word or sound-alike substitutions may have occurred due to the inherent gallardo itations of voice recognition software. Please read the chart carefully and recognize, using context, where these substitutions have occurred arker, Grant Pardo MD - 0 09/04/2015 2:57 PM PDT [facility] Hospital[facility] Progress Note Shaila Son is [...] Range: 11-35 umol/L 58 (H) Results for KRISTI SHAILA ALMEIDA ( ) as of 09/06/2015 [...] as outlined above. Grant Lomas 09/06/2015 14:58 [facility] Portions of this chart may have been created with [employer] voice recognition software. Occasi onal wrong-word or [...] Mace MD - 09/03/2015 8:47 AM PDT [facility] Hospitalist Progress Note Shaila Son is [...] and smear. Zacarias awaiting the records from [facility] to determine the type of treatment she [...] sam was made to accommodate the 8 Fijian paracentesis trocar catheter, which were advanced into [...] as outlined above. Grant Lomas 09/03/2015 8:48 [facility] Portions of this chart may have been created with [employer] voice recognition software. Occasi onal wrong-word or [...] mi ght be different from the original. [facility] Hospitalist Progress Note Shaila Son is [...] as outlined above. Grant Lomas 09/02/2015 9:45 [facility] Portions of this chart may have been created with [employer] voice recognition software. Occasi onal wrong-word or [...] Robel Taylor MD, 09/08/2015 11:[address] [facility] Robel Taylor MD at 0 09/08/2015 12:00 PM PDTParkerGrant MD - 09/01/2015 6:43 PM PDTFormatting of this note mi ght be different from the original. Patient: Shaila Son : 1970: Age: 45 y.o. MedRec: [id number] Admission date: 09/01/2015 Hospital day #: 0 Physician author: Grant Lomas MD HISTORY AND PHYSICAL CHIEF COMPLAINT: Patient transferred to this facility from [facility] without emergency room rec ords [...] of 4 L paracentesis in 03/29/2015 at [facility] History of seizures at the patient's order from [facility] being divalproex DR 150 mg 3 [...] at the time of discharge 04/01/2015 from [facility] was tete ing Cefpodoxime 200 mg [...] CKTOTAL No results for input(s): PHART, PO2ART, VBO1OHE, AIP9JOS, BEART, E8TYCLXB in the last 168 h ours. Xray [...] signed by: Grant Lomas MD 09/01/2015 18:43 [facility] Portions of this chart may have been created with [employer] voice recognition software. Occasi onal wrong-word or sound-alike substitutions may have occurred due to the inherent gallardo itations of voice recognition software. Please read the chart carefully and recognize, using context, where these substitutions have occurred documented in this enc ounter Miscellaneous Notes Plan of Care - Janeen Srivastava MSW - 09/10/2015 11:49 AM PDTPatient to transfer [facility]. This CM faxed over the SNF transfer orders, PASRR, and RXs. All other documentation is placed in manila folder and in ghost chart. This CM spoke with Irena who states that she will look over the orders and call this write r back with a mushroom picker time. Electronically signed by: HANNAH Contreras 09/10/2015 11:52 Spoke with Josephine who reported a mushroom picker time of 1300. This Cm let [...] might be differe nt from the original. LONGTERM FACILITY TRANSFER ORDERS Patient Name: Shaila Son Patient : 1970 Gender: female Date of Admission: 09/01/2015 Date of Discharge: 09/10/2015 Admitting Provider: Marialuisa Roman MD Discharging Provider: Jose Carlos Albert MD Consultants: none PCP: Juan Holguin [facility] transferring to: [facility] Provider after transfer: Per SNF CODE STATUS: [x] Attempt CPR [] Do not resuscitate If patient is pulseless and not breathing, RN/SALES OPERATIONS CONSULTANT may pronounce . Advanced Directives included: [] [...] for this patient. Diet: [] As tolerated INSURANCE SALESMAN may upgrade or downgrade diet as condition [...] Whole [] Thin Liquids [] Cut-up [] Red Chute Thick [] Advanced Chopped [] Honey Thickened [] Chopped [] Advanced Ground [] 1:1 feedings [] Ground/Pureed [] Other: Tube Feedings: [] PEG [] GT [] JT [] NGT [] Formula type: (Medical Reception may change/substitute if indicated). [] Continuous Rate: [...] [x] OT Evaluation & Management for: [] INSURANCE SALESMAN Evaluation &Management for: [] Other: Wound/Skin Care: [...] By: Jose Carlos Albert Quant: 30 tablet Jose Carlos Hester MD, certify that post hospital jail care is medically nec essary on a continuing basis for any of the conditions for which he/she received care during this hospitalization. Check one: [x] Skilled [] Intermediate Additional Orders/Instructions: Physician's signature: 09/10/2015 11:[address] [facility] USE ONLY: [] [...] weight-bearing History of Presenting Problem: Transfer from [facility], no records or labs available. P t unable to provide history. Reportedly stopped medications x 1 month ago. Hx 4L paracente sis @ [facility] 03/23; hx seizures, chronic anemia. Now- [...] for technique w/ IV pole Level of [place] : contact guard assist, verbal cues required Assistive Device: (IV stand) Distance (feet): 300 Transfers Using IV stand for support Sit-Stand, Level of [place]: supervision required Stand-Sit, Level of [place]: supervision required War-Lrfox-Rpz, Assistive Device: none Safety Issues: balance decreased during turns, step length decreased, loses balance backwar d Impairments: impaired balance, strength decreased, decreased flexibility, postural control impaired, muscle tone abnormal Bed Mobility Assistive Device: bed rails Supine to Sit, Level of [place]: minimum assist (75% patient effort) Sit to Supine, Level of [place]: modified independence Impairments: impaired balance, strength decreased [...] Activity Type: supine to sit/sit to supine [place] Level: independent Assistive Device: none Time to Achieve: 5 - 7 days Goal Status: progressing toward goal, revised Transfer Training Goal, Activity Type: sit to stand/stand to sit [place] Level: modified independence Assistive Device: 2 wheeled walker (FWW) Time to Achieve: 5 - 7 days Goal Status: progressing toward goal, revised Gait Training Goal, [place] Level: modified independence Assistive Device: 2 wheeled [...] Calls appropriately. Sleeping t/o the night in [facility]. Moderate amount of liquid stool this am. [...] FWW with SBA Ambulated an est 250'. CARDIO CLINICIAN bro ught a different IV pole to provide safer ambulating with pole to/from bathroom. Pt report s and nursing confirms that pt is Independent in her room. Education: Safety with functional mobility Treatment Provided: ADL and functional mobility training. Patient Status/Goals Reflects last filed data of patient status; may be from multiple contributors. ADLs Grooming, Level of [place]: supervision required Assistive Device: none Grooming Assess/Train, [...] therapies. She stood at the sink to shopping investigator her te eth with supervision, Pt fatigued easily with ambulation, requesting to go back to bed after loop around unit Occupational Therapy Anticipated Discharge Needs are: home with assist Have the anticipated discharge needs changed? TBA Post discharge occupational therapy recommendation: TBA Plan for next treatment: 1P, DV, 1 more follow up visit for pt safety with ADL's Electronically signed by: WLIL Dunne, 09/08/2015 11:01 ;y lan of Care [...] overall everything was oka y. Patient is Restorationist and I wished her good health. Spiritual Intervention: Patient welcomed ore fielder visit and I wished her good health. Spiritual Outcomes: Patient thank me for the visit. Spiritual Goals/Follow up: Transit Mix Operator will continue to provide ongoing emotional/spirtiual support [...] weight-bearing History of Presenting Problem: Transfer from [facility], no records or labs available. P t unable to provide history. Reportedly stopped medications x 1 month ago. Hx 4L paracente sis @ [facility] 03/23; hx seizures, chronic anemia. Now- [...] on L during initial contact. Level of [place] : supervision required Assistive Device: 2 wheeled walker (FWW) Distance (feet): 120 Transfers Sit-Stand, Level of [place]: supervision required Stand-Sit, Level of [place]: supervision required Hyl-Mvqsb-Dip, Assistive Device: 2 wheeled walker (FWW) Toilet, Assistive Device: none (recommend FWW as pt is slightly unsteady on her feet) Safety Issues: balance decreased during turns, step length decreased, loses balance backwar d Impairments: muscle tone abnormal, strength decreased, impaired balance, coordination impai red Bed Mobility Assistive Device: bed rails Supine to Sit, Level of [place]: modified independence Sit to Supine, Level of [place]: independent Impairments: impaired balance, strength decreased Balance [...] in lower legs and ankles STG GOALS [place] Level: independent Assistive Device: none Time to Achieve: 2 days Goal Status: new [place] Level: modified independence Assistive Device: 2 wheeled walker (FWW) Time to Achieve: 2 days Goal Status: new Gait Training Goal, [place] Level: modified independence Assistive Device: 2 wheeled [...] PTA, 09/07/2015 12:45 lan of Care - [facility] er, Paulina Goddard OT - 09/07/2015 12:32 [...] from multiple contributors. ADLs LB, Level of [place]: supervision required, set up required LB Dressing [...] planning: I received a phone call from [facility] katheryn [place] this morning. She states that they have a bed available and would be able to accept Ms Shaila Son when she is medially stable for discharge. [facility] katheryn [place] does request for the doctor to include an order for Ativan PO and IM o n her SNF discharge order for possible Seizure activity. Otherwise no concerns with taking h er. Dr Lomas notified of the above information. Electronically signed by: Yumiko Anderson RN 09/06/2015 10:01 [facility] [place] notified patient will be medially stable for discharge tomorrow, Sunday , 09/07/2015. Patient also notified of the above information. Electronically signed by: Yumiko Anderson RN 09/06/2015 11:40 Updated doctor progress notes faxed to [facility] per her request, fax # . Electronically [...] is a 45 y.o. who transferred from [facility], no records or labs available. Pt unable to provide history. Reportedl y stopped medications x 1 month ago. Hx 4L paracentesis @ [facility] 03/23; hx seizures, chronic anemia. Now- [...] stairs at home. Transfers Sit-Stand, Level of [place]: supervision required Toilet, Assistive Device: none (recommend FWW as pt is slightly unsteady on her feet) Safety Issues: balance decreased during turns, step length decreased, loses balance backwar d Impairments: muscle tone abnormal, strength decreased, impaired balance, coordination impai red Bed Mobility Assistive Device: bed rails Supine to Sit, Level of [place]: modified independence Sit to Supine, Level of [place]: independent Impairments: impaired balance, strength decreased Balance [...] in lower legs and ankles STG GOALS [place] Level: independent Assistive Device: none Time to Achieve: 2 days Goal Status: new [place] Level: modified independence Assistive Device: 2 wheeled walker (FWW) Time to Achieve: 2 days Goal Status: new Gait Training Goal, [place] Level: modified independence Assistive Device: 2 wheeled [...] agrees and would like to go to [place] as she is from [place] and family and friends could visit. If [place] does not have any beds available, she is open to [place]. Referral has been faxed to [place]. Yumiko Anderson RN 09/05/2015 12:23 lan of [facility] - Steve Salamanca RN - 09/05/2015 5:09 [...] remain alert and oriented through 09/06/2015. 5.) Hsaila will be free of falls by 09/06/2015. [...] who presents to therapy for Transfer from [facility], no records or labs available. Pt unable to provid e history. Reportedly stopped medications x 1 month ago. Hx 4L paracentesis @ [facility] 03/23; hx seizures, chronic anemia. Now- [...] from multiple contributors. ADLs Toileting, Level of [place]: contact guard assist, verbal cues required, set up requir ed Assistive Device: grab bar Toileting Assess/Train, Position: sitting, supported standing Toileting Assess/Train, Impairments: impaired balance, strength decreased, coordination imp aired Cognitive Mood/Behavior: hypoactive (quiet, withdrawn), flat affect Orientation: oriented x 4 Speech: (very soft) Transfers Toilet, Level of [place]: contact guard assist, verbal cues required, set [...] ctulose given. Multiple loose BM's today. lan [facility] Sabrina jimenes RN - 09/03/2015 5:25 [...] Anticipate possible paracentesis again today. lan of [facility] - Tresa Viera RN - 09/02/2015 6:23 [...] neurologic deterior ation7. pain8. renal dysfunction9. respiratory [id number]. situational response Intervention: Promote Neurologic Homeostasis Patient [...] as there is no Cell p radha school photograph editor out there) #[phone]). He said that the living situation is as follows. She has a room in her Aunmauricio Travis's home located in [place], [place] that she doesn't use very o ften where four of her Cousins live as well. She normally lives with Edd in a mobile that is located below Aunt Angy's home. There are three steps leading to the [facility]. Trixie Rose PA-C at the [facility] is her PCP. I called brian amaro and had them place her name on Shaila's chart. She uses the pharmacy located at [facility] first then uses the [place] [facility] second. She owns a cane, a four wheel walker, hand rails by the tub/shower and toilet, a hand held shower head and uses a metal fold up chair in the tub. She has used the [employer] [facility] for most of her DME and then would li ke to use [facility] located in [place], [place]. They said that [facility] would be fine if they would come out. They said that the four Cousins staying at Aunmauricio Travis 's home are all drinking all the time. Edd said that his home would be a safe place for H H to visit though. Edd said that she would go back to [place] as her "Plan B" as she has [...] with her Drug and Alcohol Counselor, Andreia ([phone]), from [facility] and that she had helped arrange [...] ORDERING PHYSICIAN: Andres Mancera MD PATIENT NAME: KRISTI, | [facility] | | SHAILA ALMEIDA GENDER: Romulo [...] | | | preparation was performed by [employer] [address] [place] [address] | | | [place] [address] and [facility] | | | [address] [place] [address]. Professional | | | interpretation was performed by [employer] [facility] | | | Center Branch - [address] [place] [address] (Medical | | | Director: Bebeto Ruiz M.D.; IA#:[id number]).8 Diagnostician: | | | Gladis Johnson M.S., KAVIN([facility]), [facility] Letter Sorting Machine Operator | | | Diagnostician: Bebeto Ruiz [...] [address] | [place] | [phone] | | [facility] | | [address] | | | - LABORATORY | | [...] [address] | [place] | [phone] | | [facility] | | [address] | | | - LABORATORY | | [...] (L) | 7 - 18 mg/dL | [facility] | | | | | | ST. [...] mL/min/1.73m2 | [facility] | | | [place] | RATE,ESTIMATED | | MEDICAL | | | | mL/min/1.17n1Gmyb than | | CENTER - | | [...] ST. | [address] | [place] | [phone] | | [facility] | | [address] | | | - LABORATORY | | [...] + + + | UNIT # | [id number] | | [facility] | | | | [...] St | [place] | | | [facility] | | [address] | | | - BLOOD BANK | [...] + | [facility] | [address] | [place] | [phone] | | [facility] | | [address] | | | - LABORATORY | | [...] mL/min/1.73m2 | [facility] | | | [place] | RATE,ESTIMATED | | MEDICAL | | | | mL/min/1.08w5Jxrd than | | CENTER - | | [...] | | ine Ratio | | | [facility] | | | | | [...] [address] | [place] | [phone] | | [facility] | | [address] | | | - LABORATORY | | [...] [address] | [place] | [phone] | | [facility] | | [address] | | | - LABORATORY | | [...] + | [facility] | [address] | [place] | [phone] | | [facility] | | [address] | | | - LABORATORY | | [...] [address] | [place] | [phone] | | [facility] | | [address] | | | - LABORATORY | | [...] | 0.65 | 0.60 - 1.30 | GYPSY | | | | | mg/dL | [facility] | | | | | | MEDICAL | | | | | | CENTER - | | | | | | LABORATORY | | + + + + + + | eGFR, | >60Comment: GLOMERULAR | >=60 | [facility] | | | non- | FILTRATION | mL/min/1.73m2 | [facility] | | | [place] | RATE,ESTIMATED | | MEDICAL | | | | mL/min/1.27a5Sdcg than | | CENTER - | | [...] + | [facility] | [address] | [place] | [phone] | | [facility] | | [address] | | | - LABORATORY | | [...] ST. | [address] | [place] | [phone] | | [facility] | | [address] | | | - LABORATORY | | | | + + + + + Surgical Pathology Exam (09/08/2015 12:00 AM PDT) + + | Specimen | + + | Soft tissue sample | | (specimen) | + + + + + | Narrative | Performed At | + + + | SPECIMEN(S): A LIVER NEEDLE BIOPSY SPECIMEN SOURCE: A. LIVER | [facility] | | NEEDLE BIOPSY CLINICAL HISTORY: [...] may not be | | | fully circulation representative should be considered. Noninvasive MRI studies | | | may help to further characterize the lesion if clinical concern | | | remains. Results discussed with Dr. Albert by Dr. More on | | | September 09 at 3:10 p.m. [facility]:C2NR GROSS DESCRIPTION: The specimen, | [...] for | | | neoplastic hepatocellular nodules. [facility] PERFORMING LABORATORY: | | | Tissue processing and slide preparation were performed by [facility] | | | [address], [place] [address] | | | (Cardiac Rehab Nurse: Bebeto Ruiz M.D.; CLIA#: [id number]). | | | Professional interpretation was performed by [facility] | | | [facility] [facility], [address] [place] [address], [place], | | | [place] [address] (Cardiac Rehab Nurse: Jonny Ernandez M.D.; CLIA#: | | | [id number]). Diagnostician: Ana M Holm MD Pathologist | [...] Jossy | | | | | | [facility] | | | | | | [place], [address], | | | | | | [place] [address] | | | | + + + + + + + + | Specimen | + + | Blood specimen | | (specimen) | + + + + + + + | Performing | Address | City/State/Zipcode | Phone Number | | Organization | | | | + + + + + | [facility] | [address] | [place] [address] | [phone] | + + + + + PTT [...] + | [facility] | [address] | [place] | [phone] | | [facility] | | [address] | | | - LABORATORY | | [...] [address] | [place] | [phone] | | [facility] | | [address] | | | - LABORATORY | | [...] | Basophils | | K/uL | [facility] | | | | | | MEDICAL [...] [address] | [place] | [phone] | | [facility] | | [address] | | | - LABORATORY | | [...] 8 | 7 - 18 mg/dL | [facility] | | | | | | [facility] | | | | | | [facility]ICAL | | | | | | CENTER - | | | | | | LABORATORY | | + + + + + + | Creatinine | 0.61 | 0.60 - 1.30 | [facility] | | | | | mg/dL | [facility] | | | | | | MEDICAL | | | | | | CENTER - | | | | | | LABORATORY | | + + + + + + | eGFR, | >60Comment: GLOMERULAR | >=60 | [facility] | | | non- | FILTRATION | mL/min/1.73m2 | [facility] | | | [place] | RATE,ESTIMATED | | MEDICAL | | | | mL/min/1.70g8Xjdj than | | CENTER - | | [...] [address] | [place] | [phone] | | [facility] | | [address] | | | - LABORATORY | | [...] + + + | UNIT # | [id number] | | [facility] | | | | [...] ST. | [address] | [place], [place] | | | [facility] | | [address] | | | - BLOOD BANK | [...] | | | report was sent by [email or web address] on 09/06/2015 at 7:03 PM with no [...] | | preliminary report was sent by [email or web address] on 09/06/2015 at 7:03 PM with | [...] | |A preliminary report was sent by [email or web address] on 09/06/2015 at 7:03 PM with no [...] + | [facility] | [address] | [place] | [phone] | | [facility] | | [address] | | | - LABORATORY | | [...] mL/min/1.73m2 | [facility] | | | [place] | RATE,ESTIMATED | | MEDICAL | | | | mL/min/1.54y1Mcvv than | | CENTER - | | [...] 7.3 (L) | 8.3 - 10.5 | [facility] | | | | | mg/dL | [facility] | | | | | | MEDICAL | | | | | | CENTER - | | | | | | LABORATORY | | + + + + + + | Albumin | 1.6 (L) | 3.2 - 5.0 g/dL | [facility] | | | | | | ST. [...] [address] | [place] | [phone] | | [facility] | | [address] | | | - LABORATORY | | [...] St | [place] | | | [facility] | | [address] | | | - BLOOD BANK | [...] + + + | UNIT # | [id number] | | [facility] | | | | [...] + | [facility] | [address] | [place] | | | [facility] | | [address] | | | - BLOOD BANK | [...] | | Code | | | [facility] | | | | | | MEDICAL | | | | | | CENTER - | | | | | | BLOOD BANK | | + + + + + + | UNIT # | [id number] | | [facility] | | | | [...] St | [place] | | | [facility] | | [address] | | | - BLOOD BANK | [...] + | [facility] | [address] | [place] | [phone] | | [facility] | | [address] | | | - LABORATORY | | [...] mL/min/1.73m2 | [facility] | | | [place] | RATE,ESTIMATED | | MEDICAL | | | | mL/min/1.87s9Xyyo than | | CENTER - | | [...] ST. | [address] | [place] | [phone] | | [facility] | | [address] | | | - LABORATORY | | [...] + | [facility] | [address] | [place] | [phone] | | [facility] | | [address] | | | - LABORATORY | | [...] [address] | [place] | [phone] | | [facility] | | [address] | | | - LABORATORY | | [...] + | [facility] | [address] | [place] | [phone] | | [facility] | | [address] | | | - LABORATORY | | [...] mL/min/1.73m2 | [facility] | | | [place] | RATE,ESTIMATED | | MEDICAL | | | | mL/min/1.98q6Cjtp than | | CENTER - | | [...] [address] | [place] | [phone] | | [facility] | | [address] | | | - LABORATORY | | [...] [address] | [place] | [phone] | | [facility] | | [address] | | | - LABORATORY | | [...] | | | | | | | [id number] | | | | | | Source [...] Performed: | | | | | | [facility] | | | | | | [facility], [address] | | | | | | [place] [address] | | | | + + + [...] [facility] | [address] | [place] [address] | [phone] | + + + + + Ammonia [...] [address] | [place] | [phone] | | [facility] | | [address] | | | - LABORATORY | | [...] | 0.61 | 0.60 - 1.30 | [facility] | | | | | mg/dL | [facility] | | | | | | MEDICAL | | | | | | CENTER - | | | | | | LABORATORY | | + + + + + + | eGFR, | >60Comment: GLOMERULAR | >=60 | [facility] | | | non- | FILTRATION | mL/min/1.73m2 | [facility] | | | [place] | RATE,ESTIMATED | | MEDICAL | | | | mL/min/1.68c0Fomx than | | CENTER - | | [...] [address] | [place] | [phone] | | [facility] | | [address] | | | - LABORATORY | | [...] [address] | [place] | [phone] | | [facility] | | [address] | | | - LABORATORY | | | | + + + + + Medical Cytology (09/03/2015 12:00 AM PDT) + + | Specimen | + + | | + + + + + | Narrative | Performed At | + + + | ORDERING PHYSICIAN: Grant Lomas MD PATIENT NAME: K[facility]I [facility] PATHOLOGY | | SHAILA ALMEIDA [...] | | | interpretation was performed by [employer] - [facility] | | | [place] - [address] [place] [address] (Medical | | | Director: Bebeto Ruiz M.D.; [facility]#:[id number]).8 Technical | | | preparation was performed by [employer] [id number] | | | [address] [place] [address] and [facility] | | | [address] [place] [address]. Diagnostician: | | | Gladis Johnson M.S., CT(ASCP), [facility] Letter Sorting Machine Operator | | | Diagnostician: Ana M [...] sam was made to accommodate the 8 Fijian paracentesis trocar | | | catheter, which [...] made to accommodate the 8 | | Fijian paracentesistrocar catheter, which were advanced into the [...] | | | | | | | [id number] | | | | | | Source [...] | | | | | | Jossy Eros | | | | | | [facility], [address] | | | | | | [place] [address] | | | | + + + [...] [address] | [place] [address] | [phone] | + + + + + Culture, [...] ST. | [address] | [place], [place] | [phone] | | [facility] | | [address] | | | - LABORATORY | | [...] + | [facility] | [address] | [place], [place] | [phone] | | [facility] | | [address] | | | - LABORATORY | | [...] [address] | [place] | [phone] | | [facility] | | [address] | | | - LABORATORY | | [...] [address] | [place] | [phone] | | [facility] | | [address] | | | - LABORATORY | | [...] [address] | [place] | [phone] | | [facility] | | [address] | | | - LABORATORY | | [...] + + + | Color, Body | [place] | | [facility] | | | Fluid [...] ST. | [address] | [place] | [phone] | | [facility] | | [address] | | | - LABORATORY | | [...] [place] | | | | | | [address] | | | | + + + + + + + + | Specimen | + + | Blood specimen | | (specimen) | + + + + + + + | Performing | Address | City/State/Zipcode | Phone Number | | Organization | | | | + + + + + | [facility] | [address] | [place] [address] | [phone] | + + + + + Ferritin [...] [address] | [place] | [phone] | | [facility] | | [address] | | | - LABORATORY | | [...] [address] | [place] | [phone] | | [facility] | | [address] | | | - LABORATORY | | [...] ST. | [address] | [place], [place] | [phone] | | [facility] | | [address] | | | - LABORATORY | | [...] | | B-12 | <145 | | [facility] | | | | pg/mLINDETERMINATE: | | [...] [address] | [place] | [phone] | | [facility] | | [address] | | | - LABORATORY | | [...] [address] | [place] | [phone] | | [facility] | | [address] | | | - LABORATORY | | [...] [place] | | | | | | [address] | | | | + + + [...] [address] | [place] [address] | [phone] | + + + + + Protime [...] [address] | [place] | [phone] | | [facility] | | [address] | | | - LABORATORY | | [...] [address] | [place] | [phone] | | [facility] | | [address] | | | - LABORATORY | | [...] + | [facility] | [address] | [place] | [phone] | | [facility] | | [address] | | | - LABORATORY | | [...] | non- | FILTRATION | mL/min/1.73m2 | [facility] | | | [place] | RATE,ESTIMATED | | MEDICAL | | | | mL/min/1.85b1Vkra than | | CENTER - | | [...] | | | | | mg/dL | [facility] | | | | | | MEDICAL | | | | | | CENTER - | | | | | | LABORATORY | | + + + + + + | Albumin | 1.3 (L) | 3.2 - 5.0 g/dL | [facility] | | | | | | [facility] | | | | | [...] [address] | [place] | [phone] | | [facility] | | [address] | | | - LABORATORY | | [...] [address] | [place] | [phone] | | [facility] | | [address] | | | - LABORATORY | | [...] [address] | [place] | [phone] | | [facility] | | [address] | | | - LABORATORY | | [...] - 1.030 | [facility] | | | [place], | | | [facility] | | [...] [address] | [place] | [phone] | | [facility] | | [address] | | | - LABORATORY | | [...] | | | interpretation was performed by [employer] [facility] | | | Center Branch - [address] [place] [address] (Medical | | | Director: Bebeto Ruiz M.D.; [facility]#:[id number]).8 Technical | | | preparation was performed by [employer] [id number] | | | [address], [place] [address] and [employer], [place] | | | [address] [place] [address]. Diagnostician: | | | Gladis Johnson M.S., CT([facility]), [facility] Letter Sorting Machine Operator | | | Diagnostician: Ana M [...] ST. | [address] | [place], [place] | [phone] | | [facility] | | [address] | | | - LABORATORY | | [...] [address] | [place] | [phone] | | [facility] | | [address] | | | - LABORATORY | | [...] + | [facility] | [address] | [place] | [phone] | | [facility] | | [address] | | | - LABORATORY | | [...] mL/min/1.73m2 | [facility] | | | [place] | RATE,ESTIMATED | | MEDICAL | | | | mL/min/1.55u2Mpyd than | | CENTER - | | [...] [address] | [place] | [phone] | | [facility] | | [address] | | | - LABORATORY | | [...] [address] | [place] | [phone] | | [facility] | | [address] | | | - LABORATORY | | [...] ST. | [address] | [place], [place] | | | [facility] | | [address] | | | - BLOOD BANK | [...] [address] | [place] | [phone] | | [facility] | | [address] | | | - LABORATORY | | [...] | | | | | | | [facility] 09/02/15 at 0845, Give 1 dose | [...] | | | | 30 Minutes, ONCE, [facility] 09/02/15 at | | | | | [...] 8:37 | | | | | on [facility] 09/02/15 at 0945 | | AM PDT [...] PDT | | | | | ONCE, [facility] 09/02/15 at 1900, For 1 | | [...] PDT | | | | | ONCE, [facility] 09/01/15 at 2115, For 1 | | [...] PDT | | | | | ONCE, [facility] 09/09/15 at 1045, For 1 | | [...] 8:08 | | | | | ONCE, [facility] 09/09/15 at 0815, For 1 | | [...] | | | | First dose on [facility] 09/02/15 at | | AM PDT | [...]
--- OUTSIDE RECORDS SUMMARY | ~2020-01-12 | XMS | Encounter Summary ---
Demographics + + + | Address | [address] | | | [place] [address] | + + + | Home Phone | | + + + | Preferred Language | Unknown | + + + | Marital Status | Single | + + + | Oriental Orthodox Affiliation | 1041 | + + [...] + | Joanne Pham | ECON | [address] | | | | | [place] | | | | | [address] | | + + + + + | Viktor Son | EDDIE | Unknown | | + + + + + | Edd Gill | ECON | Unknown | | + + + + + | Conner Barber | ECON | Unknown | | + + + + + Care Team Providers + +------+ + | Care Orthodontist Small Business Owner Name | Role | Phone | + [...] + + | 12/31/ | Hospital | [facility] | Laci Morrison, | Alcohol withdrawal, | | 2017 - | Encounter | MED CTR ICU [address] | [address] | uncomplicated (HCC) | | | | [place], | [place], [place] | (Primary Dx); | | 01/04/ | | [place] [address] | [address] | Pneumonia due to | | 2017 | | [phone] | | infectious organism, | | | | | Robel Wilcox, | unspecified | | | | | [address] | laterality, | | | | | [place], [place] | unspecified part of | | | | | [address] | lung; Altered mental | | | | | | status, | | | | | [place], | unspecified; Seizure | | | | | Sarah, [address] | due to alcohol | | | | | [address] [place] | withdrawal, | | | | | [place] [address] | uncomplicated (HCC); | | | | | [phone] | Anemia, unspecified | | | | [...] Lomas MD - 01/04/2017 8:53 AM PDT [facility] DISCHARGE SUMMARY Pt. Name/Age/: Shaila [...] Why: Appointment time is 12:30 Contact information: [address] [place] [id number] RESULTS: Results for SHAILA SON ( ) [...] - 150 cells/uL 800 (H) BF % Macro/Gove Latest Units: % 44 BF % Neutrophils Latest Units: % 2 Volume, Fluid Latest Units: mL 50 BF % Lymphocytes Latest Units: % 44 BF Color Unknown Light Yellow Shaila Son (MR # [id number]) Culture, Body Fluid, Aerobe [[id number]] (Order #: [id number]) Qty: 1 Culture, Body Fluid, Aerobe (Order [id number]) Culture, Body Fluid, Anaerobe (Order [id number]) Culture, Body Fluid, Aerobe Order: [id number] - Part of Panel Order [id number] Status: Preliminary result Visible to patient: No (Not Released) Next appt: None Culture No growth to date Stain 1+ White Blood Cells No organisms seen Resulting Agency: [facility] Specimen Collected: 01/01/17 11:51 Culture, Blood [[id number]] (Order #: [id number]) Qty: 1 Culture, Blood Order: [id number] Status: Preliminary result Visible to patient: No (Not Released) Next appt: None Culture Positive Blood Culture Staphylococcus epidermidis Probable contaminant Stain Gram positive cocci in clusters 1 of 3 bottles positive Resulting Agency: [facility] Specimen Collected: 12/31/16 15:21 Last Resulted: 01/02/17 15:47 Results for SHAILA SON ( ) as of 01/04/2017 08:45 Ref. Range 12/31/2016 17:22 Color, UA Latest Ref Range: Light Yellow, Yellow, Straw Yellow Clarity, UA Latest Ref Range: Clear Clear Specific [place] Latest Ref Range: 1.001 - 1.030 1.009 [...] Range: Negative /LPF Present (A) Culture, Urine [[id number]] (Order #: [id number]) Qty: 1 Culture, Urine Order: [id number] Status: Preliminary result Visible to patient: No (Not Released) Next appt: None Culture 10,000 CFU/ml Staphylococcus coagulase negative Identification and susceptibility to follow. Resulting Agency: [facility] Specimen Collected: 12/31/16 17:22 Last Resulted: 01/03/17 [...] signed by: Grant Lomas MD, 01/04/2017 16:13 [facility] Portions of this chart may have been created with [employer] voice recognition software. Occasi onal wrong-word or [...] Lomas MD - 01/03/2017 8:14 PM PDT [facility] PMG Hospitalist Progress Note Shaila Son [...] as outlined above. Grant Lomas 01/03/2017 20:14 [facility] Portions of this chart may have been created with [employer] voice recognition software. Occasi onal wrong-word or [...] Mace MD - 01/02/2017 8:15 AM PDT [facility] PMG Hospitalist Progress Note Shaila Son [...] Intake/Output Summary (Last 24 hours) at 01/02/17 6267 Last data filed at 01/02/17 0435 Gross [...] pneumothorax. No large pleural effusion. No ac stillaguamish osseous abnormalities. IMPRESSION - Low lung volumes [...] as outlined above. Grant Lomas 01/02/2017 8:16 [facility] Portions of this chart may have been created with [employer] voice recognition software. Occasi onal wrong-word or [...] Culture, Body Fluid, Sterile, Smear, with Anaerobes [[id number]] Collected: 01/01/17 115 Order Status: Sent Lab Status: In process Updated: 01/01/17 120 Specimen: Body Fluid from Ascites Narrative: The following orders were created for panel order Culture, Body Fluid, Sterile, Smear, wit h Anaerobes. Procedure Abnormality Status --------- ------ Culture, Body Fluid, Aerobe[[id number]] Preliminary result Culture, Body Fluid, Haley...[[id number]] In process Please view results for these tests on the individual orders. Culture, Body Fluid, Aerobe [[id number]] Collected: 01/01/17 115 Order Status: Completed Lab Status: Preliminary result Updated: 01/01/17 162 Specimen: Body Fluid from Ascites Gram Stain Result 1+ White Blood Cells No organisms seen Culture, Body Fluid, Anaerobe [[id number]] Collected: 01/01/17 115 Order Status: Resulted Lab Status: In process Updated: 01/01/17 1202 Specimen: Body Fluid from Ascites Culture, MRSA [[id number]] Collected: 01/01/17 0925 Order Status: Sent Lab Status: In process Updated: 01/01/17 09 Specimen: Respiratory from Nares Culture, Urine [[id number]] Order Status: Canceled Lab Status: No result Specimen: Urine from Urine, clean catch Culture, Urine [[id number]] Collected: 12/31/16 1722 Order Status: Sent Lab Status: In process Updated: 01/01/17 115 Specimen: Urine from Urine, clean catch Culture, Blood [[id number]] (Normal) Collected: 12/31/16 1523 Order Status: Completed Lab Status: Preliminary result Updated: 01/01/17 0331 Specimen: Blood from Peripheral Blood Culture No growth: Monitored continually by instrument for 5 days Culture, Blood [[id number]] (Abnormal) Collected: 12/31/16 1521 Order Status: Completed [...] Monitoring Protocol Electronically signed by: Renetta Walton [facility] 01/01/2017 20:30 Aidee Cantu MD - 01/01/2017 2:43 PM PDT [facility] HOSPITALIST PROGRESS NOTE Patient: Shaila Son : 1970: Age: 46 y.o. MedRec: [id number] PCP: Trixie Rose PA-C Admission date: 12/31/2016 [...] PH UA 7.0 5.0 - 8.0 Specific [place] 1.018 1.001 - 1.030 PROTEIN UA >=500 [...] PH UA 8.0 5.0 - 8.0 Specific [place] 1.009 1.001 - 1.030 PROTEIN UA 100 [...] BF % Lymphocytes 44 % BF % Macro/Gove 44 % BF % Eosinophils 9 % [...] pneumothorax. No large pleural effusion. No ac stillaguamish osseous abnormalities. IMPRESSION - Low lung volumes [...] Continue to observe for seizures and give PA N Ativan per alcohol withdrawal order set [...] mg subcu daily Sarah Martel 01/01/2017 14:43 [facility] Dvae Coker Pha D - 12/31/2016 8:01 PM [...] performed and electronically signed by Ricardo Silverman Electrical Helper 17:49 Reviewed by Dave Wells PharmD 12/31/2016 20:02 documented in this e ncounter H&P Notes Fiona Cornejo MD - 12/31/2016 5:19 PM PDT [facility] HISTORY AND PHYSICAL Pt. [...] PH UA 7.0 5.0 - 8.0 Specific [place] 1.018 1.001 - 1.030 PROTEIN UA >=500 [...] pneumothorax. No large pleural effusion. No ac stillaguamish osseous abnormalities. IMPRESSION - Low lung volumes [...] signed by: Sarah Martel MD 12/31/2016 17:19 [facility] Portions of this chart may have been created with [employer] voice recognition software. Occasi onal wrong-word or [...] PH UA 6.0 5.0 - 8.0 Specific [place] 1.014 1.001 - 1.030 PROTEIN UA >=500 [...] PH UA 6.0 5.0 - 8.0 Specific [place] 1.005 1.001 - 1.030 PROTEIN UA 30 [...] BF % Lymphocytes 18 % BF % Macro/Gove 68 % BF Total cells counted 100 [...] Results Review . Laci Morrison MD 12/31/16 1968 Lashaun Morris RN - 12/31/2016 2:37 PM [...] Za De La Cruz CH, RN at [facility] regarding the appointment and requested she notify Trixie that Shaila requires a referral to their A&D department, which Shaila agrees to as well. Shaila said that transporta tion was a challenge at times and I reminded her that she can schedule transportation throug h the CHR department at [facility] and she said that she would do that. Za also plans t o follow up with a home visit once she is home. Edd has arrived to transport her home onc e she is discharged today. There are no other questions or needs at this time. Electronica lly signed by: Erika Willis RN 01/04/2017 11:30 Discharge summary faxed to [facility] medical records. Cover sheet and fax received added to [facility] chart. Electronically signed by: Kellie Cramer 01/04/2017 [...] is Trixie Rose PA-C. She uses the [facility] pharmacy as well as the [facility] [facility] in [place], [place]. She does not own any DME. I let her know about [facility] as well as [facility] if she were to need any DME. She is agreeable to Home Health services as well a [facility] health services. I notified Za De La Cruz CH RN at [facility] elisabeth t this patient was here and to anticipate her needs at time of discharge. She appreciated t he call and said that she knew that she was seen in our ER. Shaila absolutely refused to allo w me to send a referral to [place] or any other SNF. She is adament [...] [address] | [place] | [phone] | | [facility] | | [address] | | | - LABORATORY | | [...] [address] | [place] | [phone] | | [facility] | | [address] | | | - LABORATORY | | [...] | | | Cells | | | [facility] | | | | | | MEDICAL | | | | | | CENTER - | | | | | | LABORATORY | | + + + + + + | Red Blood | 2.89 (L) | 3.70 - 5.20 | [facility] | | | Cells | | M/uL | [facility] | | | | | [...] ST. | [address] | [place] | [phone] | | [facility] | | [address] | | | - LABORATORY | | [...] | | | | | | [facility] | | | | | | MEDICAL [...] | non- | FILTRATION | mL/min/1.73m2 | [facility] | | | [place] | RATE,ESTIMATED | | MEDICAL | | | | mL/min/1.28c4Sgwv than | | CENTER - | | [...] + | [facility] | [address] | [place] | [phone] | | [facility] | | [address] | | | - LABORATORY | | [...] [address] | [place] | [phone] | | [facility] | | [address] | | | - LABORATORY | | [...] + | [facility] | [address] | [place] | [phone] | | [facility] | | [address] | | | - LABORATORY | | [...] ST. | [address] | [place], [place] | [phone] | | [facility] | | [address] | | | - LABORATORY | | [...] + | [address] | [address] | [place] | [phone] | | [facility] | | [address] | | | - LABORATORY | | [...] [address] | [place] | [phone] | | [facility] | | [address] | | | - LABORATORY | | [...] [address] | [place] | [phone] | | [facility] | | [address] | | | - LABORATORY | | [...] mL/min/1.73m2 | [facility] | | | [place] | RATE,ESTIMATED | | MEDICAL | | | | mL/min/1.23v7Somi than | | CENTER - | | [...] [address] | [place] | [phone] | | [facility] | | [address] | | | [...] - 1.030 | [facility] | | | [place], | | | [facility] | | [...] [address] | [place] | [phone] | | [facility] | | [address] | | | - LABORATORY | | [...] [address] | [place] | [phone] | | [facility] | | [address] | | | - LABORATORY | | [...] mL/min/1.73m2 | [facility] | | | [place] | RATE,ESTIMATED | | MEDICAL | | | | mL/min/1.49a6Xvxg than | | CENTER - | | [...] ST. | [address] | [place], [place] | [phone] | | [facility] | | [address] | | | - LABORATORY | | [...] + | [facility] | [address] | [place] | [phone] | | [facility] | | [address] | | | - LABORATORY | | [...] [address] | [place] | [phone] | | [facility] | | [address] | | | - LABORATORY | | [...] + | [facility] | [address] | [place] | [phone] | | [facility] | | [address] | | | - LABORATORY | | [...] + | [address] | [address] | [place] | [phone] | | [facility] | | [address] | | | - LABORATORY | | [...] [address] | [place] | [phone] | | [facility] | | [address] | | | - LABORATORY | | [...] [address] | [place] | [phone] | | [facility] | | [address] | | | - LABORATORY | | [...] [address] | [place] | [phone] | | [facility] | | [address] | | | - LABORATORY | | [...] 0.51 (L) | 0.60 - 1.30 | [facility] | | | | | mg/dL | [facility] | | | | | | MEDICAL | | | | | | CENTER - | | | | | | LABORATORY | | + + + + + + | eGFR, | >60Comment: GLOMERULAR | >=60 | [facility] | | | non- | FILTRATION | mL/min/1.73m2 | [facility] | | | [place] | RATE,ESTIMATED | | MEDICAL | | | | mL/min/1.37e8Qgqr than | | CENTER - | | [...] + | [facility] [facility] | [address] | [place] | [phone] | | [facility] | | [address] | | | - LABORATORY | | [...] [address] | [place] | [phone] | | [facility] | | [address] | | | - LABORATORY | | [...] [address] | [place] | [phone] | | [facility] | | [address] | | | - LABORATORY | | [...] [address] | [place] | [phone] | | [facility] | | [address] | | | - LABORATORY | | [...] - 1.030 | [facility] | | | [place], | | | [facility] | | [...] [address] | [place] | [phone] | | [facility] | | [address] | | | - LABORATORY | | [...] - 1.030 | [facility] | | | [place], | | | [facility] | | [...] + | [address] [facility] | [address] | [place] | [phone] | | [facility] | | [address] | | | - LABORATORY | | [...] + | [address] | [address] | [place], [place] | [phone] | | [facility] | | [address] | | | - LABORATORY | | [...] + | [facility] | [address] | [place] | [phone] | | [facility] | | [address] | | | - LABORATORY | | [...] [address] | [place] | [phone] | | [facility] | | [address] | | | - LABORATORY | | [...] + | [facility] | [address] | [place] | [phone] | | [facility] | | [address] | | | - LABORATORY | | [...] [address] | [place] | [phone] | | [facility] | | [address] | | | - LABORATORY | | [...] ST. | [address] | [place] | [phone] | | [facility] | | [address] | | | - LABORATORY | | [...] | 0.75 | 0.60 - 1.30 | [facility] | | | | | mg/dL | [facility] | | | | | | MEDICAL | | | | | | CENTER - | | | | | | LABORATORY | | + + + + + + | eGFR, | >60Comment: GLOMERULAR | >=60 | [facility] | | | non- | FILTRATION | mL/min/1.73m2 | [facility] | | | [place] | RATE,ESTIMATED | | MEDICAL | | | | mL/min/1.63i7Oyle than | | CENTER - | | [...] [address] | [place] | [phone] | | [facility] | | [address] | | | - LABORATORY | | [...] [address] | [place] | [phone] | | [facility] | | [address] | | | - LABORATORY | | [...] PDT | | | | | ONCE, [facility] 01/02/17 at 0830, For 1 | | [...] PDT | | | | | ONCE, [facility] 01/03/17 at 1545, For 1 | | [...] | | | | mL/hr, Intravenous, ONCE, [facility] | | | | | | | [...] | | | | First dose on [facility] 01/04/17 at 0900 | | AM [...]
--- OUTSIDE RECORDS SUMMARY | ~2020-01-12 | XMS | Encounter Summary ---
Demographics + + + | Address | [address] | | | [place] [address] | + + + | Home Phone | | + + + | Preferred Language | Unknown | + + + | Marital Status | Single | + + + | Latter-Day Affiliation | 1041 | + + + [...] + | Joanne Pham | ECON | [address] | | | | | [place] | | | | | [address] | | + + + + + | Viktor Son | EDDIE | Unknown | | + + + + + | Edd Gill | ECON | Unknown | | + + + + + | Conner Barber | ECON | Unknown | | + + + + + Care Team Providers + +------+ + | Care Hide Dropper Name | Role | Phone | + [...] + + | 12/31/ | Hospital | [facility] | Laci Morrison, | Alcohol withdrawal, | | 2017 - | Encounter | MED CTR ICU [address] | [address] | uncomplicated (HCC) | | | | [place], | [place], [place] | (Primary Dx); | | 01/04/ | | [place] [address] | [address] | Pneumonia due to | | 2017 | | [phone] | | infectious organism, | | | | | Robel Wilcox, | unspecified | | | | | [address] | laterality, | | | | | [place], [place] | unspecified part of | | | | | [address] | lung; Altered mental | | | | | | status, | | | | | [place], | unspecified; Seizure | | | | | Sarah, [address] | due to alcohol | | | | | [address] [place] | withdrawal, | | | | | [place] [address] | uncomplicated (HCC); | | | | | [phone] | Anemia, unspecified | | | | [...] Lomas MD - 01/04/2017 8:53 AM PDT [facility] DISCHARGE SUMMARY Pt. Name/Age/: Shaila Son [...] Why: Appointment time is 12:30 Contact information: [address] [place] [id number] RESULTS: Results for SHAILA SON ( ) [...] - 150 cells/uL 800 (H) BF % Macro/Mccracken Latest Units: % 44 BF % Neutrophils Latest Units: % 2 Volume, Fluid Latest Units: mL 50 BF % Lymphocytes Latest Units: % 44 BF Color Unknown Light Yellow Shaila Son (MR # [id number]) Culture, Body Fluid, Aerobe [[id number]] (Order #: [id number]) Qty: 1 Culture, Body Fluid, Aerobe (Order [id number]) Culture, Body Fluid, Anaerobe (Order [id number]) Culture, Body Fluid, Aerobe Order: [id number] - Part of Panel Order [id number] Status: Preliminary result Visible to patient: No (Not Released) Next appt: None Culture No growth to date Stain 1+ White Blood Cells No organisms seen Resulting Agency: [facility] Specimen Collected: 01/01/17 11:51 Culture, Blood [[id number]] (Order #: [id number]) Qty: 1 Culture, Blood Order: [id number] Status: Preliminary result Visible to patient: No (Not Released) Next appt: None Culture Positive Blood Culture Staphylococcus epidermidis Probable contaminant Stain Gram positive cocci in clusters 1 of 3 bottles positive Resulting Agency: [facility] Specimen Collected: 12/31/16 15:21 Last Resulted: 01/02/17 15:47 Results for SHAILA SON ( ) as of 01/04/2017 08:45 Ref. Range 12/31/2016 17:22 Color, UA Latest Ref Range: Light Yellow, Yellow, Straw Yellow Clarity, UA Latest Ref Range: Clear Clear Specific [place] Latest Ref Range: 1.001 - 1.030 1.009 [...] Range: Negative /LPF Present (A) Culture, Urine [[id number]] (Order #: [id number]) Qty: 1 Culture, Urine Order: [id number] Status: Preliminary result Visible to patient: No (Not Released) Next appt: None Culture 10,000 CFU/ml Staphylococcus coagulase negative Identification and susceptibility to follow. Resulting Agency: [facility] Specimen Collected: 12/31/16 17:22 Last Resulted: 01/03/17 [...] signed by: Grant Lomas MD, 01/04/2017 16:13 [facility] Portions of this chart may have been created with Echoing Green voice recognition software. Occasi onal wrong-word or [...] Lomas MD - 01/03/2017 8:14 PM PDT [facility] PMG Hospitalist Progress Note Shaila [...] abnormality identified. Dictated and Signed b y: Brayn Freedman MD Electronically signed: 01/03/2017 8:11 PM Total time of approximately 25 minutes was spent with the patient and/or patient's family, and/or on the patient's floor/unit, of which more than 50% was spent counseling and/or coord ination the patient's care as outlined above. Grant Lomas 01/03/2017 20:14 [facility] Portions of this chart may have been created with Echoing Green voice recognition software. Occasi onal wrong-word or [...] Mace MD - 01/02/2017 8:15 AM PDT [facility] PMG Hospitalist Progress Note Shaila [...] Intake/Output Summary (Last 24 hours) at 01/02/17 7221 Last data filed at 01/02/17 0435 Gross [...] pneumothorax. No large pleural effusion. No ac [place] osseous abnormalities. IMPRESSION - Low lung volumes [...] as outlined above. Grant Lomas 01/02/2017 8:16 [facility] Portions of this chart may have been created with Echoing Green voice recognition software. Occasi onal wrong-word or [...] Culture, Body Fluid, Sterile, Smear, with Anaerobes [[id number]] Collected: 01/01/17 115 Order Status: Sent Lab Status: In process Updated: 01/01/17 120 Specimen: Body Fluid from Ascites Narrative: The following orders were created for panel order Culture, Body Fluid, Sterile, Smear, wit h Anaerobes. Procedure Abnormality Status --------- ------ Culture, Body Fluid, Aerobe[[id number]] Preliminary result Culture, Body Fluid, Haley...[[id number]] In process Please view results for these tests on the individual orders. Culture, Body Fluid, Aerobe [[id number]] Collected: 01/01/17 115 Order Status: Completed Lab Status: Preliminary result Updated: 01/01/17 162 Specimen: Body Fluid from Ascites Gram Stain Result 1+ White Blood Cells No organisms seen Culture, Body Fluid, Anaerobe [[id number]] Collected: 01/01/17 115 Order Status: Resulted Lab Status: In process Updated: 01/01/17 1202 Specimen: Body Fluid from Ascites Culture, MRSA [[id number]] Collected: 01/01/17 0925 Order Status: Sent Lab Status: In process Updated: 01/01/17 09 Specimen: Respiratory from Nares Culture, Urine [[id number]] Order Status: Canceled Lab Status: No result Specimen: Urine from Urine, clean catch Culture, Urine [[id number]] Collected: 12/31/16 1722 Order Status: Sent Lab Status: In process Updated: 01/01/17 115 Specimen: Urine from Urine, clean catch Culture, Blood [[id number]] (Normal) Collected: 12/31/16 1523 Order Status: Completed Lab Status: Preliminary result Updated: 01/01/17 0331 Specimen: Blood from Peripheral Blood Culture No growth: Monitored continually by instrument for 5 days Culture, Blood [[id number]] (Abnormal) Collected: 12/31/16 1521 Order Status: Completed [...] Monitoring Protocol Electronically signed by: Renetta Walton [facility] 01/01/2017 20:30 Aidee Cantu MD - 01/01/2017 2:43 PM PDT [facility] HOSPITALIST PROGRESS NOTE Patient: Shaila Son : 1970: Age: 46 y.o. MedRec: [id number] PCP: Trixie Rose PA-C Admission date: 12/31/2016 [...] PH UA 7.0 5.0 - 8.0 Specific [place] 1.018 1.001 - 1.030 PROTEIN UA >=500 [...] PH UA 8.0 5.0 - 8.0 Specific [place] 1.009 1.001 - 1.030 PROTEIN UA 100 [...] BF % Lymphocytes 44 % BF % Macro/Mccracken 44 % BF % Eosinophils 9 % [...] pneumothorax. No large pleural effusion. No ac [place] osseous abnormalities. IMPRESSION - Low lung volumes [...] Continue to observe for seizures and give NC N Ativan per alcohol withdrawal order set [...] mg subcu daily Sarah Martel 01/01/2017 14:43 [facility] Dave Coker Pha D - 12/31/2016 [...] performed and electronically signed by Ricardo Silverman Compugraph Operator 17:49 Reviewed by Dave Wells PharmD 12/31/2016 20:02 documented in this e ncounter H&P Notes Fiona Cornejo MD - 12/31/2016 5:19 PM PDT [facility] HISTORY AND PHYSICAL Pt. [...] PH UA 7.0 5.0 - 8.0 Specific [place] 1.018 1.001 - 1.030 PROTEIN UA >=500 [...] pneumothorax. No large pleural effusion. No ac [place] osseous abnormalities. IMPRESSION - Low lung volumes [...] signed by: Sarah Martel MD 12/31/2016 17:19 [facility] Portions of this chart may have been created with Echoing Green voice recognition software. Occasi onal wrong-word or [...] PH UA 6.0 5.0 - 8.0 Specific [place] 1.014 1.001 - 1.030 PROTEIN UA >=500 [...] PH UA 6.0 5.0 - 8.0 Specific [place] 1.005 1.001 - 1.030 PROTEIN UA 30 [...] BF % Lymphocytes 18 % BF % Macro/Mccracken 68 % BF Total cells counted 100 [...] Results Review . Laci Morrison MD 12/31/16 9788 Lashaun Morris RN - 12/31/2016 2:37 PM [...] Za De La Cruz CH, RN at [facility] regarding the appointment and requested she notify Trixie that Shaila requires a referral to their A&D department, which Shaila agrees to as well. Shaila said that transporta tion was a challenge at times and I reminded her that she can schedule transportation throug h the CHR department at [facility] and she said that she would do that. Za also plans t o follow up with a home visit once she is home. Edd has arrived to transport her home onc e she is discharged today. There are no other questions or needs at this time. Electronica lly signed by: Erika Willis RN 01/04/2017 11:30 Discharge summary faxed to [facility] medical records. Cover sheet and fax received added to [facility] chart. Electronically signed by: Kellie Cramer 01/04/2017 [...] is Trixie Rose PA-C. She uses the [facility] pharmacy as well as the [facility] in [place], [place]. She does not own any DME. I let her know about [facility] as well as [facility] if she were to need any DME. She is agreeable to Home Health services as well a [facility] health services. I notified Za De La Cruz CH RN at [facility] elisabeth t this patient was here and to anticipate her needs at time of discharge. She appreciated t he call and said that she knew that she was seen in our ER. Shaila absolutely refused to allo w me to send a referral to [facility] or any other SNF. She is adament [...] [address] | [place] | [phone] | | [facility] | | [address] | | | - LABORATORY | | [...] [address] | [place] | [phone] | | [facility] | | [address] | | | - LABORATORY | | [...] | | | Cells | | | [facility] | | | | | | MEDICAL | | | | | | CENTER - | | | | | | LABORATORY | | + + + + + + | Red Blood | 2.89 (L) | 3.70 - 5.20 | [facility] | | | Cells | | M/uL | [facility] | | | | | | MEDICAL [...] ST. | [address] | [place] | [phone] | | [facility] | | [address] | | | - LABORATORY | | [...] | non- | FILTRATION | mL/min/1.73m2 | [facility] | | | Mal[place] | RATE,ESTIMATED | | MEDICAL | | | | mL/min/1.34v3Fhzq than | | CENTER - | | [...] + | [facility] | [address] | [place] | [phone] | | [facility] | | [address] | | | - LABORATORY | | [...] [address] | [place] | [phone] | | [facility] | | [address] | | | - LABORATORY | | [...] + | [facility] | [address] | [place] | [phone] | | [facility] | | [address] | | | - LABORATORY | | [...] ST. | [address] | [place], [place] | [phone] | | [facility] | | [address] | | | - LABORATORY | | [...] + | [address] | [address] | [place] | [phone] | | [facility] | | [address] | | | - LABORATORY | | [...] [address] | [place] | [phone] | | [facility] | | [address] | | | - LABORATORY | | [...] [address] | [place] | [phone] | | [facility] | | [address] | | | - LABORATORY | | [...] mL/min/1.73m2 | [facility] | | | [place] | RATE,ESTIMATED | | MEDICAL | | | | mL/min/1.86u8Szrp than | | CENTER - | | [...] [address] | [place] | [phone] | | [facility] | | [address] | | | - LABORATORY | | [...] - 1.030 | [facility] | | | [place], | | | [facility] | | [...] [address] | [place] | [phone] | | [facility] | | [address] | | | - LABORATORY | | [...] [address] | [place] | [phone] | | [facility] | | [address] | | | - LABORATORY | | [...] mL/min/1.73m2 | [facility] | | | [place] | RATE,ESTIMATED | | MEDICAL | | | | mL/min/1.55z3Ktdf than | | CENTER - | | [...] ST. | [address] | [place], [place] | [phone] | | [facility] | | [address] | | | - LABORATORY | | [...] + | [facility] | [address] | [place] | [phone] | | [facility] | | [address] | | | - LABORATORY | | [...] [address] | [place] | [phone] | | [facility] | | [address] | | | - LABORATORY | | [...] + | [facility] | [address] | [place] | [phone] | | [facility] | | [address] | | | - LABORATORY | | [...] + | [address] | [address] | [place] | [phone] | | [facility] | | [address] | | | - LABORATORY | | [...] [address] | [place] | [phone] | | [facility] | | [address] | | | - LABORATORY | | [...] [address] | [place] | [phone] | | [facility] | | [address] | | | - LABORATORY | | [...] + | [address] [facility] | [address] | [place] | [phone] | | [facility] | | [address] | | | - LABORATORY | | [...] 0.51 (L) | 0.60 - 1.30 | [facility] | | | | | mg/dL | [facility] | | | | | | MEDICAL | | | | | | CENTER - | | | | | | LABORATORY | | + + + + + + | eGFR, | >60Comment: GLOMERULAR | >=60 | [facility] | | | non- | FILTRATION | mL/min/1.73m2 | [facility] | | | [place] | RATE,ESTIMATED | | MEDICAL | | | | mL/min/1.69h1Xxcq than | | CENTER - | | [...] + | [facility] | [address] | [place] | [phone] | | [facility] | | [address] | | | - LABORATORY | | [...] [address] | [place] | [phone] | | [facility] | | [address] | | | - LABORATORY | | [...] [address] | [place] | [phone] | | [facility] | | [address] | | | - LABORATORY | | [...] | [address] | [place] | [phone] | | [facility] | | [address] | | | - LABORATORY | | [...] - 1.030 | [facility] | | | [place], | | | [facility] | | [...] [address] | [place] | [phone] | | [facility] | | [address] | | | - LABORATORY | | [...] - 1.030 | [facility] | | | [place], | | | [facility] | | [...] + | [address] [facility] | [address] | [place] | [phone] | | [facility] | | [address] | | | - LABORATORY | | [...] + | [address] [facility] | [address] | [place], [place] | [phone] | | [facility] | | [address] | | | - LABORATORY | | [...] + | [facility] | [address] | [place] | [phone] | | [facility] | | [address] | | | - LABORATORY | | [...] [address] | [place] | [phone] | | [facility] | | [address] | | | - LABORATORY | | [...] + | [facility] | [address] | [place] | [phone] | | [facility] | | [address] | | | - [...] [address] | [place] | [phone] | | [facility] | | [address] | | | - LABORATORY | | [...] ST. | [address] | [place] | [phone] | | [facility] | | [address] | | | - LABORATORY | | [...] | 0.75 | 0.60 - 1.30 | [facility] | | | | | mg/dL | [facility] | | | | | | MEDICAL | | | | | | CENTER - | | | | | | LABORATORY | | + + + + + + | eGFR, | >60Comment: GLOMERULAR | >=60 | [facility] | | | non- | FILTRATION | mL/min/1.73m2 | [facility] | | | [place] | RATE,ESTIMATED | | MEDICAL | | | | mL/min/1.83x7Rlxz than | | CENTER - | | [...] [address] | [place] | [phone] | | [facility] | | [address] | | | - LABORATORY | | [...] [address] | [place] | [phone] | | [facility] | | [address] | | | - LABORATORY | | [...] PDT | | | | | ONCE, [facility] 01/02/17 at 0830, For 1 | [...] PDT | | | | | ONCE, [facility] 01/03/17 at 1545, For 1 | | [...] | | | | mL/hr, Intravenous, ONCE, [place] | | | | | | | [...] | | | | First dose on [facility] 01/04/17 at 0900 | | AM [...]
--- OUTSIDE RECORDS SUMMARY | ~2020-01-12 | XMS | Encounter Summary ---
Demographics + + + | Address | [address] | | | [place] [address] | + + + | Home Phone [...] + + + | Author | [facility] | | | and [place] | + + + | Organization | [facility] | | | and [place] | + + + | Address | Unknown | + + + | Phone | Unavailable | + + + Support + + + + + | Name | Relationship | Address | Phone | + + + + + | Joanne Pham | ECON | [address] | | | | | [place] | | | | | [address] | | + + + + + | Viktor Son | EDDIE | Unknown | | + + + + + | Edd Gill | ECON | Unknown | | + + + + + | Conner Barber | ECON | Unknown | | + + + + + Care Team Providers + +------+ + | Care Fractionating Still Operator Name | Role | Phone | [...] | | | [address] | [place] [address] | | | | | [place], [place] | [phone] | | | | | [address] | | | | | | [phone] | | | +--------+ + + + [...] 11:19 AM PDTCalled [facility] at [phone]. Spoke to Rox, she was able to [...] give me an updated # for them [phone]. I will call to coordinate apt. E lectronically signed by Princess Parsons at 08/28/2019 10:31 AM PDTTelephone Encounter - Lavern Varela - 08/27/2019 1:52 PM PDTMichael, is calling again for Referral and would like a call back. Additional Call Details: Michael, from [facility], Calling to schedule from Referral Can mandi jacobson reached at [phone] elephone Encounter - Julia Causey - 08/27/2019 9:40 AM PDTMichael, is returning call for Referral and would like a call back. Additional Call Details: Provided information on the phone number for where patient is loc ated. Correct phone number [phone] elephone Encounter - Deborah Rivero - 08/22/2019 11:53 AM PDTAttempted to call number provided by tahira Rodriguez ed following message *we are sorry you have reached a number that has been disconnected or i s no longer in service* elephone Encounter - Katina Manriquez - 08/20/2019 2:14 PM PDTMicabby- [facility], is madelin ng again for Referral and would like a call back. Additional Call Details: Caller states patient is currently in an assisted living home [facility] in [place] and can assist with transportation of patient. Can call to schedule at [phone]. States anyone who answers can assist. elephone Encounter - Deborah Rivero - 08/13/2019 3:12 PM PDTReturned Michael's call, she stated patient had a ne w number to call [phone]. She stated patient still needed to be [...] She then stated she might have a engineering mathematician that might assist her with this and [...] transfer the call to a miguelina mueller bilingual student tutor was caller made aware that if at any time she feels it is an emergency they sh ould call 911 or go to the nearest emergency room? not applicable documented in this encounter Plan of Treatment Not on filedocumented as of this encounter Visit Diagnoses Not on filedocumented in this encounter"
--- OUTSIDE RECORDS SUMMARY | ~2020-01-12 | XMS | Encounter Summary ---
Demographics + + + | Address | [address] | | | [place] [address] | + + + | Home Phone [...] + + + | Author | [facility] | | | and [place] | + + + | Organization | [facility] | | | and [place] | + + + | Address | Unknown | + + + | Phone | Unavailable | + + + Support + + + + + | Name | Relationship | Address | Phone | + + + + + | Joanne Pham | ECON | [address] | | | | | [place] | | | | | [address] | | + + + + + | Viktor Son | EDDIE | Unknown | | + + + + + | Edd Gill | ECON | Unknown | | + + + + + | Conner Barber | ECON | Unknown | | + + + + + Care Team Providers + +------+ + | Care Ball Rolling Machine Operator Name | Role | Phone | + +------+ + | Trixie Rose PA-C | PCP | | + +------+ + Encounter Details +--------+ + + + + | Date | Type | Department | Care Team | Description | +--------+ + + + + | 11/17/ | Orders Only | [facility] | Provider, | | | 2018 | | [facility] | [address] | | | | | CONVERSION [address] | [place] | | | | | [address] | [place] [address] | | | | | [address] | | | | | | [phone] | | | +--------+ + + + [...]
--- OUTSIDE RECORDS SUMMARY | ~2020-01-12 | XMS | Encounter Summary ---
Demographics + + + | Address | [address] | | | [place] [address] | + + + | Home Phone | | + + + | Preferred Language | Unknown | + + + | Marital Status | Single | + + + | Yazdanism Affiliation | [id number] | + + + | Race | or | + + + | Ethnic Group | Not or | + + + Author + + + | Author | [facility] | | | and [place] | + + + | Organization | [facility] | | | and [place] | + + + | Address | Unknown | + + + | Phone | Unavailable | + + + Support + + + + + | Name | Relationship | Address | Phone | + + + + + | Joanne Pham | ECON | [address] | | | | | [place] | | | | | [address] | | + + + + + | Viktor Son | EDDIE | Unknown | | + + + + + | Edd Gill | ECON | Unknown | | + + + + + | Conner Barber | ECON | Unknown | | + + + + + Care Team Providers + +------+ + | Care Velvet Steamer Name | Role | Phone | + [...] | | | | | | | ([facility]) | | | | | | | Hypertensive | | | | | | | urgency | | | | | | | Recurrent | | | | | | | seizures | | | | | | | ([facility]) | | | | | | | Altered | | | | | | | sensorium | | | | | | | | | | +--------+--------+ + + + + Encounter Details +--------+ + + + + | Date | Type | Department | Care Team | Description | +--------+ + + + + | 10/31/ | Hospital | [facility] | Danish George, | Hypertensive urgency | | 2017 - | Encounter | [facility] | [address] | (Primary Dx); | | | | [address] | [place] | Altered sensorium; | | 11/07/ | | [place] [address] | [id number] | Hypokalemia; | | 2017 | | [phone] | | Recurrent seizures | | | | | Michael, Morro Singletary, | (HCC); Delirium | | | | | MD [address] | tremens (HCC); | | | | | [facility] [place] | Alcohol withdrawal | | | | | [place] [address] | seizure, with | | | | | [phone] | unspecified | | | | | | complication (HCC); | | | | | Francisco Choi P, | 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 1970 Admit date: 10/31/2016 Discharge date and time: 11/07/2016 Admitting Physician: Francisco Choi, Discharge Physician: Kristina Tefsaye MD Admission Diagnoses: Hypokalemia [E87.6] Delirium tremens [...] Patient was evaluated earlier this morning at [facility] em ergency room where she presented [...] might be different from the origin al. [facility] PMG Hospitalist Progress Note Shaila Son [...] as outlined above. Jakub Chun 11/06/2016 10:[address] [facility] Portions of this chart may have been created with Apptopia voice recognition software. Occasi onal wrong-word or sound-alike substitutions may have occurred due to the inherent gallardo itations of voice recognition software. Please read the chart carefully and recognize, using context, where these substitutions have occurred Jakub Macias MD - 11/05/2016 11:30 AM PDT [facility] PMG Hospitalist Progress Note Shaila Son [...] as outlined above. Jakub Chun 11/05/2016 11:[address] [facility] Portions of this chart may have been created with Apptopia voice recognition software. Occasi onal wrong-word or sound-alike substitutions may have occurred due to the inherent gallardo itations of voice recognition software. Please read the chart carefully and recognize, using context, where these substitutions have occurred Gilberto, Jakub Smith MD - 11/04/2016 8:52 AM PDT [facility] PMG Hospitalist Progress Note Shaila Son [...] WWP, trace edema bilaterally Neurological: Oriented to [place], person, not hospital Jackson catheter present: No [...] as outlined above. Jakub Chun 11/04/2016 8:[address] [facility] Portions of this chart may have been created with Apptopia voice recognition software. Occasi onal wrong-word or [...] Macias MD - 11/03/2016 7:49 AM PDT [facility] PMG Hospitalist Progress Note Shaila Son [...] A small skin incision was made. 8 Kittitian paracentesis needle and sheath was ad vanced [...] as outlined above. Jakub Chun 11/03/2016 7:[address] [facility] Portions of this chart may have been created with Apptopia voice recognition software. Occasi onal wrong-word or sound-alike substitutions may have occurred due to the inherent gallardo itations of voice recognition software. Please read the chart carefully and recognize, using context, where these substitutions have occurred Jakub Macias MD - 11/02/2016 7:23 AM PDT [facility] PMG Hospitalist Progress Note Shaila Son [...] only to person, states she is at "[facility]" [facility] Jackson catheter present: Yes If so, [...] BF % Lymphocytes 18 % BF % Macro/Camuy 68 % BF Total cells counted 100 [...] now present Confirmed by DAVID MADERA, PEPE ([id number]) on 11/02/2016 7:05:01 AM Comprehensive Metabolic Panel [...] A small skin incision was made. 8 Kittitian paracentesis needle and sheath was ad vanced [...] as outlined above. Jakub Chun 11/02/2016 7:[address] [facility] Portions of this chart may have been created with Apptopia voice recognition software. Occasi onal wrong-word or sound-alike substitutions may have occurred due to the inherent glalardo itations of voice recognition software. Please read the chart carefully and recognize, using context, where these substitutions have occurred Francisco De La Garza DO - 11/02/2016 12:42 AM PDT [facility] BRIEF NIGHT COVERAGE NOTE Patient: Shaila Son : 1970: Age: 46 y.o. MedRec: [id number] Admission date: 10/31/2016 Hospital day # : [...] step down. Francisco Choi DO 11/02/2016 0:[address] [facility] Portions of this chart may have been created with Apptopia voice recognition software. Occasi onal wrong-word or [...] name, strength, and direction X [facility] ( dr mcfarland and trixie rose PA-C nurses) X Pharmacy list names: [facility] X [employer] insurance reported information X Care [...] than the ones that are on the FACILITY MAINTENANCE SUPERVISOR list Medication review performed and electronically signed by Lily Davison, Pharmacy Grad Intern 2016 13:04 Reviewed by Annmarie Mcfadden, PharmD 11/01/2016 13:12 akub Chun MD - 11/01/2016 9:25 AM PDT [facility] PMG Hospitalist Progress Note Shaila Son [...] PH UA 6.0 5.0 - 8.0 Specific [place] 1.014 1.001 - 1.030 PROTEIN UA >=500 [...] ECGs available Confirmed by PEPE HERNANDEZ MD ([id number]) on 11/01/2016 6:25:42 AM Urinalysis with Microscopic with Culture if Indicated Result Value Ref Range COLOR Straw Light Yellow, Yellow, Straw CLARITY Clear Clear PH UA 6.0 5.0 - 8.0 Specific [place] 1.005 1.001 - 1.030 PROTEIN UA 30 [...] as outlined above. Jakub Chun 11/01/2016 9:[address] [facility] Portions of this chart may have been created with Apptopia voice recognition software. Occasi onal wrong-word or sound-alike substitutions may have occurred due to the inherent gallardo itations of voice recognition software. Please read the chart carefully and recognize, using context, where these substitutions have occurred documented in this encounter H&P Notes Francisco Choi DO - 11/01/2016 12:46 AM PDTFormatting of this note might be different f rom the original. [facility] HISTORY & PHYSICAL Patient: Shaila Son : 1970: Age: 46 y.o. MedRec: [id number] PCP: Trixie Rose PA-C Admission date: 10/31/2016 [...] was evaluat ed earlier this morning at [facility] emergency room where she presented with [...] CKTOTAL No results for input(s): PHART, PO2ART, DFU2SHR, PLI4HLC, BEART, Q0RVTCHF in the last 168 h ours. No results for input(s): SPECSOURCE, PHPOCB, HCO3, TCO2, BEART, BE, CHCW6NAH in the last 16 8 hours. Invalid input(s): LWYYP2LU, OYEL0OD (dot meylab) Xray Results: Ct Head Wo [...] Status Full code Medical Decision Maker Patient [facility] Documentation I expect this patient will be hospitalized for greater than 2-midnights and expect the post -hospital plan to be discharge to home or to an adult foster home. Time spent with the patient and sister (of which more than 50% was in counseling and/or wellness program coordinator rdination the patient's care as outlined above) was 60 minutes. Electronically signed by: Francisco Choi DO 11/01/2016 0:47 [facility] Dot phrase reference: VSHOSP (VS in table, last 24 hours) MEYLAB (various labs to pull in) DT (date and time) LABRCNTIP[K:3,Na:3 (last 3 sets of labs using potassium and sodium as examples) HGB HCT PLT INR GLU POCGLU Na K BUN CREA, CALCIUM TROPONINI BNP DIGOXIN Portions of this chart may have been created with Apptopia voice recognition software. Occasi onal wrong-word or [...] Needs: (based on 75 kg) Kcal needs: 0405-7599 Kcals/day Protein needs:75-85 grams of protein/day Fluid goal:1131-1750 cc fluid per day Nutrition Plan of [...] in 1 days. Available as needed, ext [phone] Assessment: Diet Order: For your reference, current, [...] Kunz MD - 10/31/2016 7:37 PM PDT [facility] Shaila Son Emergency Department Encounter Note [address] [place] [address] PCP:Trixie Rose PA-C [phone] CHIEF COMPLAINT: Chief Complaint Patient presents with Seizure (Adult - Alcoholic) ED Room: 421/421-[facility] Shaila Son is a 46 y.o. female who presents to the Emergency Department presents w [facility] family after having 2 seizures in [...] PH UA 6.0 5.0 - 8.0 Specific [place] 1.014 1.001 - 1.030 PROTEIN UA >=500 [...] PH UA 6.0 5.0 - 8.0 Specific [place] 1.005 1.001 - 1.030 PROTEIN UA 30 [...] BF % Lymphocytes 18 % BF % Macro/Camuy 68 % BF Total cells counted 100 [...] A small skin incision was made. 8 Kittitian paracentesis needle and sheath was advanced under [...] AM 20:39 Sinus tachycardia at 114 Normal MD and VALENTIN Normal QRS and Sabinal Normal QT and QTc Normal ST/T without acute ischemic changes Very similar morphology without wandering baseline in comparison to an electrocardiogram da magen September 01, 2015 with the exact same rate of 114 bpm. Interpreted by Danish George DO. ED COURSE & MEDICAL DECISION MAKING Pertinent Labs & Imaging studies were reviewed along with EMS notes and correction record s if applicable. (See chart for [...] discussed the patients clinical presentation with the rn corrections hosp italist for continuity of care and [...] Current Discharge Medication List Electronically signed by: Dnaish George MD 11/05/2016 11:17 Danish George. This document has been prepared with a voice recognition system. The possibility of "sound alike" tire curer errors, addition and/or deletions may occur. If [...] he will get one on loan in [place]. This therapsit suggested pt wear magen hose for dri ve home and assisted w/ donning magen hose. Pt will d/c home this shortly w/ neighbor friend. infrastructure project manager notified this therapist recommended extended tub bench for safety w/ tub shower s at home and pt's neighbor friend will be procuring one for pt. Occupational Therapy Discharge Recommendations are: Recommended discharge disposition: home with assist Post discharge occupational therapy recommendation: family involved/supportive, will benef it from structured setting Equipment Recommendations: Planned Interventions:ADL retraining, IADL retraining, cognitive retraining, fine motor wellness program coordinator rdination training Recommended Frequency: 3 times/wk [...] w/o physical assist LB Dressing, Level of Mills: stand by assist Assistive Device: none LB Dressing Assess/Train, Position: sitting LB Dressing Assess/Train, Impairments: decreased flexibility, pain, motor control impaired, coordination impaired, impaired balance Functional Endurance good Transfers Completed toilet t/f w/ supervison/cues using grab bar and dry run step in shower t/f w/ laguerre pervision/cues using grab bar Sit-Stand, Level of Mills: stand by assist, verbal cues required Stand-Sit, Level of Mills: supervised Ecx-Lmyxb-Ici, Assistive Device: 2 wheeled walker (FWW) Toilet, Level of Mills: supervised, verbal cues required Toilet, Assistive Device: 2 wheeled walker (FWW), grab bars Walk-in shower, Level of Mills: supervised, verbal cues required Walk-in shower, Assistive Device: 2 wheeled walker (FWW), grab bars Impairments: decreased flexibility, strength decreased, impaired balance LB Dressing Goal Flowsheet Row Most Recent Value STG Status progressing at 11/07/2016 1400 STG Mills Level modified independent at 11/03/2016 1638 STG Adaptive Equipment none at 11/03/2016 1638 Toilet Transfer Goal Flowsheet Row Most Recent Value STG Status progressing at 11/07/2016 1400 STG Mills Level modified independent at 11/03/2016 1638 STG Assistive Device toilet safety frame at 11/03/2016 1638 Tub/Shower Transfer Goal Flowsheet Row Most Recent Value Tub/Shower Type tub/shower combo at 11/03/2016 1638 STG Status not addressed at 11/07/2016 1400 STG Mills Level modified independent at 11/03/2016 1638 Functional Cognition Goal Flowsheet Row Most Recent Value STG Status progressing at 11/07/2016 1400 STG pt able to attend to and fully participate in self care ADL tasks, seated recreational activities and conversations consistently, 4/5 times. at 11/03/2016 1638 lan of Care - Ashlyn Ocampo - 11/07/2016 2:02 PM PDTDischarge Planning: This [employer] spoke with Shaila at her bedside. She [...] amounts of clear yellow urine. lan of [facility] - Leah Cole RRT - 11/07/2016 3:39 [...] Breath so unds appear clear. lan of [facility] - Erika Wadsworth RN - 11/06/2016 6:38 [...] her Aunt, her Sister and her Aunt's racing car driver. I received a call from Amena from [place] this afternoon and she was asking about [...] factor , as pt has difficulty tracking [facility] final attention portion of the test. [...] retraining, IADL retraining, cognitive retraining, fine motor wellness program coordinator rdination training Recommended Frequency: 3 times/wk Patient Status/Goals: Reflects last filed data and may be from multiple contributors. ADLs Pt performing grooming and toileting with supervision, per CARDIAC NURSE SPECIALIST report. Cognitive Administered SLUMS cognitive test, and pt scored in dementia range, 17/30. However, pt is m uch improved from previous OT treatment. She is able to track activity and instructions, tho ugh speech continues to be quiet. Cognitive Tests Standardized Tests: [facility] Mental Status ([facility]): Shaila scored 17/30 on the SLUMS, indicating she currently has a severe level of cognitive di sorder. Interpretation: - Patients with High School Education 27-30 = normal 21-26 = mild neurocognitive disorder 1-20 = dementia - Patients with less than High School Education 25-30 = normal 20-24 = mild neurocognitive disorder 1-19 = dementia For more information, please visit: [email or web address] LB Dressing Goal Flowsheet Row Most Recent Value STG Status new at 11/03/2016 1638 STG Mills Level modified independent at 11/03/2016 1638 STG Adaptive Equipment none at 11/03/2016 1638 Toilet Transfer Goal Flowsheet Row Most Recent Value STG Status new at 11/03/2016 1638 STG Mills Level modified independent at 11/03/2016 1638 STG Assistive Device toilet safety frame at 11/03/2016 1638 Tub/Shower Transfer Goal Flowsheet Row Most Recent Value Tub/Shower Type tub/shower combo at 11/03/2016 1638 STG Status new at 11/03/2016 1638 STG Mills Level modified independent at 11/03/2016 1638 Functional Cognition Goal Flowsheet Row Most Recent Value STG Status new at 11/03/2016 1638 STG pt able to attend to and fully participate in self care ADL tasks, seated recreational activities and conversations consistently, 4/5 times. at 11/03/2016 1638 Electronically signed by: Carlos Gonsales OT, 11/06/2016 18:19 lan of [facility] - Alicia Baker RN - 11/06/2016 6:10 PM PDTProblem: Discharge Planning Goal: Patient will be discharged in a safe manner Outcome: Unchanged This CM called patient's home and spoke with Anette, patient's sister, requesting her cell # which is [phone]. Per patient, Anette is taking cleaning at [...] known. lan of Care - Lul Hermosillo, FACILITY MAINTENANCE SUPERVISOR - 11/06/2016 2:15 PM PDTFormatting of this [...] Therapy Discharge Recommendations are: Recommended discharge disposition: half-way facility Post discharge physical therapy recommendation: will [...] x2 d/t R forearm cramp/tightness Level of Mills: stand by assist, verbal cues required (close) Assistive Device: 2 wheeled walker (FWW) Distance (feet): 195', 120', 75' Impairments: impaired balance, motor control impaired, coordination impaired Transfers Light Sup d/t general safety, slight impulsivity, vc for waiting for therapist to be in pos ition, vc for bringing AD device with her to chair Sit-Stand, Level of Mills: supervised, verbal cues required (Light) Stand-Sit, Level of Mills: supervised, verbal cues required Bvj-Lvsbd-Xxw, Assistive Device: 2 wheeled walker (FWW) Safety Issues: sequencing ability decreased, step length decreased, loses balance backward Impairments: pain, impaired balance, coordination impaired, motor control impaired Bed Mobility Mod I d/t extra time Assistive Device: bed rails Supine to Sit, Level of Mills: modified independent Sit to Supine, Level of Mills: modified independent Impairments: postural control impaired, coordination [...] STG Review Date 11/09/16 at 11/03/2016 1150 Qgyokr-Eol-Cwjmvn Goal Flowsheet Row Most Recent Value STG Status progressing at 11/06/2016 1415 STG Mills Level independent at 11/03/2016 1150 STG Assistive Device none at 11/03/2016 1150 Qdy-Ktxrp-Oar Goal Flowsheet Row Most Recent Value STG Status progressing at 11/06/2016 1415 STG Mills Level modified independent at 11/05/2016 1419 STG Assistive Device -- [least restrictive AD, either FWW or cane] at 11/05/2016 1419 Gait Goal Flowsheet Row Most Recent Value STG Status progressing at 11/06/2016 1415 STG Mills Level modified independent at 11/04/2016 1808 STG [...] Needs: (based on 75 kg) Kcal needs: 8475-3659 Kcals/day Protein needs:75-80 grams of protein/day Fluid goal:4471-3885 cc fluid per day Nutrition Plan of [...] in 3 days. Available as needed, ext [phone] Assessment: Diet Order: For your reference, current, [...] through the night. AM labs drawn from [facility] PICC. A-1 blood return. Pt. has [...] Therapy Discharge Recommendations are: Recommended discharge disposition: half-way facility Post discharge physical therapy recommendation: will [...] w/ excessive wt on BUE's. Level of Mills: contact guard assist, verbal cues required Assistive Device: 2 wheeled walker (FWW) Distance (feet): 300 Impairments: impaired balance, motor control impaired, coordination impaired Transfers good technique, no cuing needed Sit-Stand, Level of Mills: supervised Stand-Sit, Level of Mills: supervised Owh-Wvtov-Fxx, Assistive Device: 2 wheeled walker (FWW) Safety Issues: sequencing ability decreased, step length decreased, loses balance backward Impairments: pain, impaired balance, coordination impaired, motor control impaired Bed Mobility No physical assist needed Assistive Device: bed rails, HOB elevated Supine to Sit, Level of Mills: modified independent Sit to Supine, Level of Mills: modified independent Impairments: postural control impaired, coordination [...] STG Review Date 11/09/16 at 11/03/2016 1150 Itinef-Whb-Xgjskc Goal Flowsheet Row Most Recent Value STG Status progressing at 11/05/2016 1419 STG Mills Level independent at 11/03/2016 1150 STG Assistive Device none at 11/03/2016 1150 Wyr-Qrzhb-Swm Goal Flowsheet Row Most Recent Value STG Status progressing, revised at 11/05/2016 1419 STG Mills Level modified independent at 11/05/2016 1419 STG Assistive Device -- [least restrictive AD, either FWW or cane] at 11/05/2016 1419 Gait Goal Flowsheet Row Most Recent Value STG Status progressing at 11/05/2016 1419 STG Mills Level modified independent at 11/04/2016 1808 STG [...] III. tatiana of Care - Livan Motley, LEATHER TOOLER - 11/05/2016 5:12 AM PDTProblem: Patient Care [...] SOB. Inter mittent audible wheeze. lan of [facility] on, Kamille Dickson RN - [...] bloo d return. Possibly will go to [facility] upon discharge. lan of Care - Lachelle [...] Therapy Discharge Recommendations are: Recommended discharge disposition: half-way facility Post discharge physical therapy recommendation: will [...] moderately ataxic, equal wt bearing Level of Mills: contact guard assist, verbal cues required, set up required Assistive Device: 2 wheeled walker (FWW) Distance (feet): 200 Impairments: impaired balance, motor control impaired, coordination impaired Transfers Cues provided to push up with UEs and reach back prior to sitting for improved safety. Sit-Stand, Level of Mills: (NT as pt was received walking from bathroom w/ sitter) Stand-Sit, Level of Mills: stand by assist, verbal cues required Sxu-Kazvk-Ewn, Assistive Device: 2 wheeled walker (FWW) Safety [...] STG Review Date 11/09/16 at 11/03/2016 1150 Upclte-Izz-Wxzlgl Goal Flowsheet Row Most Recent Value STG Status new at 11/03/2016 1150 STG Mills Level independent at 11/03/2016 1150 STG Assistive Device none at 11/03/2016 1150 Aly-Wahwm-Lpf Goal Flowsheet Row Most Recent Value STG Status progressing at 11/04/2016 1808 STG Mills Level independent at 11/03/2016 1150 STG Assistive Device -- [TBD] at 11/03/2016 1150 Gait Goal Flowsheet Row Most Recent Value STG Status revised, progressing at 11/04/2016 180 STG Mills Level modified independent at 11/04/2016 180 STG [...] r her sister). Pt was admitted to [facility] with primary dx of seizures, severe electrolyte imba ramirez, malnutrition. acute heart failure, all likely related to ETOH and withdrawal. Per mark Baker, pt used SPC and Anette provided extensive assistance with dressing, bathing, mobil ity, cooking, cleaning. However, pt did walk independently at times and even without her can e but has hx of multiple falls. Ex-boyfriend lives in [place] on same property and he is the [...] Therapy Discharge Recommendations are: Recommended discharge disposition: half-way facility Post discharge physical therapy recommendation: will [...] weight shift onto L LE Level of Mills: contact guard assist, verbal cues required, set up required Assistive Device: 2 wheeled walker (FWW) Distance (feet): 40 Transfers Cues provided to push up with UEs and reach back prior to sitting for improved safety. Sit-Stand, Level of Mills: set up required, verbal cues required, contact guard assi st Stand-Sit, Level of Mills: contact guard assist, verbal cues required Buw-Zeyeu-Isv, Assistive Device: 2 wheeled walker (FWW) Safety [...] STG Review Date 11/09/16 at 11/03/2016 1150 Ouieaw-Ffa-Ffmnud Goal Flowsheet Row Most Recent Value STG Status new at 11/03/2016 1150 STG Mills Level independent at 11/03/2016 1150 STG Assistive Device none at 11/03/2016 1150 Yjh-Iwmyw-Pxn Goal Flowsheet Row Most Recent Value STG Status new at 11/03/2016 1150 STG Mills Level independent at 11/03/2016 1150 STG Assistive Device -- [TBD] at 11/03/2016 1150 Gait Goal Flowsheet Row Most Recent Value STG Status new at 11/03/2016 1150 STG Mills Level independent at 11/03/2016 1150 STG Assistive [...] retraining, IADL retraining, cognitive retraining, fine motor wellness program coordinator rdination training Recommended Frequency: 3 times/wk Patient Status/Goals: Reflects last filed data and may be from multiple contributors. ADLs Pt experiencing difficulty engaging in activity, attending to verbal instructions, replies are sometimes difficult to hear and understand. Max A to don socks LB Dressing, Level of Mills: maximal assist (25% patient effort) Assistive Device: none LB Dressing Assess/Train, Position: sitting LB Dressing Assess/Train, Impairments: decreased flexibility, pain, motor control impaired, coordination impaired, impaired balance Required min A to stand at sink with FWW for grooming tasks, tends to lean backward when up right, vs leaning on forearms on countertop. Grooming, Level of Mills: minimal assist (75% patient effort) Assistive Device: [...] of the time Transfers Sit-Stand, Level of Mills: minimal assist (75% patient effort) Stand-Sit, Level of Mills: contact guard assist Iou-Aelwt-Wkg, Assistive Device: 2 wheeled walker (FWW) Safety [...] STG Status new at 11/03/2016 1638 STG Mills Level modified independent at 11/03/2016 1638 STG Adaptive Equipment none at 11/03/2016 1638 Toilet Transfer Goal Flowsheet Row Most Recent Value STG Status new at 11/03/2016 1638 STG Mills Level modified independent at 11/03/2016 1638 STG Assistive Device toilet safety frame at 11/03/2016 1638 Tub/Shower Transfer Goal Flowsheet Row Most Recent Value Tub/Shower Type tub/shower combo at 11/03/2016 1638 STG Status new at 11/03/2016 1638 STG Mills Level modified independent at 11/03/2016 1638 Functional [...] Unchanged This CM called Janusz, DNS, at [facility] this AM. He stated that he did not receive the [facility] SNF referral so efaxed the SNF referral with fac e sheet to him this AM if needed for patient. Per her sister, patient has been there in the past for a short while. TN# [id number], [id number]. Let Janusz know that she is not ready to be discharged yet, and still has a sitter. 10:20 This CM called and spoke with [facility] and they will be having someone call me regarding some help in the home for this patient. Number given them to call this CM back. Annemarie, patient childbirth and infant care teacher, is not in today. 11:30 This CM received call from Yola, Community Health Nurse Auto Garage Mechanic at [facility], p# [phone]. She stated that they do NOT provide any in home care giving, that this would need to be set up with [place] benefits. This CM gave Anette, patient's sister, the CM card with phone number and also the number of the [facility] for her to call in case the patient goes back home at discharge to get a home assessment done for setting up caregivers for her in the home. Let her know t hat [facility] does not provide these services. CM will need to follow up with [facility] Ijeomamegha regarding the referral faxed. Patient will most likely still be here over the weekend, which was told DWAYNE Boudreaux at [facility]. Electronically signed by: Alicia Baker RN [...] [G40.909] Altered sensorium [R40.4]. Spiritual Evaluation: Raised Hoahaoism Spiritual Intervention: Had prayer with patient and her sister. Pastoral presence, and Active Listening. Spiritual Outcomes: Patient and her family grateful for insulation professional's visit. Spiritual Goals / Follow-up: Will see the patient as requested. If there are any other spiritual care issues that arise, please contact insulation professional. ed Student Not e - Josias Fernandez, [...] III. lan of Care - Cee Barros, LEATHER TOOLER - 11/03/2016 5:43 AM PDTProblem: Patient Care [...] for up to 5 hours. lan of [facility] - Valerie Ro RRT - 11/02/2016 5:15 [...] 9-13, patient was was tachycardic last night [id number] , metoprolol given x 5, breath jose [...] both live in their aunts home in [place] and she is Shaila's caregi juice and [...] that she chose to come here not [facility]'s since she just was in their ED yesterday for 3 hrs and they rele ased her and at home she had a "seizure" per Anette, so she was brought here by private car. Anette also states that Shaila is interested in quitting drinking and would like to go the [facility] in [place], a alcohol rehab center there. She also has 2 adult children ages 19 and 20 who live there in a foster home, but cold not get ahold of the family when she was just there recently to give them gifts that she had shannon duong, per Anette. Anette did report that patient has been at [facility] for rehab in the past when nereida jacobson needed it and that since this is close to their home Anette was in agreement to send a refe rral out to them again in case this is needed. [place] was too far away, she reports. [facility] faxed a SNF referral to with request to call this CM if needed for questions. Preference form was signed and placed in ghost chart. Left message with Irena to have her call me since was able to EPIC fax only not thru the i n-basket. This CM also called Uyen, financial counselor, requesting she come and [facility] for some in home caregiving since this has not been done in the past. She [place]. Anette states that patient's PCP is PERNELL Mcclendon, at the [facility],and that s he gets her meds from them as well, but no caregiving. Called and left message at [facility], p# [phone], to have Annemarie Garcia, pt c are [...] if needed. This CM also called the [facility], p# [phone], and left message with April ngo CM, worker of the day, to return call LSAHAY to discuss increased needs at home for this patient. This was done at the request of Uyen financial counselor, since patient is from [facility]. CM will need to follow closer to discharge regarding a SNF placement or more C/G help in the rehabilitation institute.Electronically signed by: Alicia Baker RN 11/01/2016 12:09 14:45 Edwin, press secretary for the day at [facility], called this CM and stated that if patient goes to SNF first for rehab the social media designer there would contact them to [facility] some home care set up with [...] Suzy Mcmillan RN - 11/01/2016 3:31 AM [id number]: rec'd pt to rm 452 from ER, pt is somnulent, l ethargic, opens eyes briefly to voice, denies pain. Sister, anette, at bedside, assists w ans wering admit qstns. pts abd is grossly distended w ascites, both legs w 4+ pitting edema to hip/flank areas. Skin is tough, thickened w patchy thick dry areas. lan of Suzy Mcmillan RN - 2:18 AM [id number]: pt rec'd to rm 452 from ER, [...] + | [facility] | [address] | [place] | [phone] | | [facility] | | [address] | | | - LABORATORY | | [...] + | [facility] | [address] | [place], [place] | [phone] | | [facility] | | [address] | | | - LABORATORY | | [...] mL/min/1.73m2 | [facility] | | | Armenian | RATE,ESTIMATED | | MEDICAL | | | | mL/min/1.57r8Ypva than | | CENTER - | | [...] [address] | [place] | [phone] | | [facility] | | [address] | | | - LABORATORY | | [...] + | [facility] | [address] | [place] | [phone] | | [facility] | | [address] | | | - LABORATORY | | [...] - 1.030 | [facility] | | | [place], | | | [facility] | | [...] [address] | [place] | [phone] | | [facility] | | [address] | | | - LABORATORY | | [...] + | [facility] | [address] | [place] | [phone] | | [facility] | | [address] | | | - LABORATORY | | [...] [address] | [place] | [phone] | | [facility] | | [address] | | | - LABORATORY | | [...] ST. | [address] | [place], [place] | [phone] | | [facility] | | [address] | | | - LABORATORY | | [...] mL/min/1.73m2 | [facility] | | | Armenian | RATE,ESTIMATED | | MEDICAL | | | | mL/min/1.26t1Xiyx than | | CENTER - | | [...] [address] | [place] | [phone] | | [facility] | | [address] | | | - LABORATORY | | [...] [address] | [place] | [phone] | | [facility] | | [address] | | | - LABORATORY | | [...] [address] | [place] | [phone] | | [facility] | | [address] | | | - LABORATORY | | [...] | 0.71 | 0.60 - 1.30 | [facility] | | | | | mg/dL | [facility] | | | | | | MEDICAL | | | | | | CENTER - | | | | | | LABORATORY | | + + + + + + | eGFR, | >60Comment: GLOMERULAR | >=60 | [facility] | | | non- | FILTRATION | mL/min/1.73m2 | [facility] | | | Armenian | RATE,ESTIMATED | | MEDICAL | | | | mL/min/1.37f1Qtre than | | CENTER - | | [...] [address] | [place] | [phone] | | [facility] | | [address] | | | - LABORATORY | | [...] [address] | [place] | [phone] | | [facility] | | [address] | | | - LABORATORY | | [...] [address] | [place] | [phone] | | [facility] | | [address] | | | - LABORATORY | | [...] [address] | [place] | [phone] | | [facility] | | [address] | | | - LABORATORY | | [...] | | | | mmol/L | [facility] | | | | [...] | 0.73 | 0.60 - 1.30 | [facility] | | | | | mg/dL | [facility] | | | | | | MEDICAL | | | | | | CENTER - | | | | | | LABORATORY | | + + + + + + | eGFR, | >60Comment: GLOMERULAR | >=60 | [facility] | | | non- | FILTRATION | mL/min/1.73m2 | [facility] | | | Armenian | RATE,ESTIMATED | | MEDICAL | | | | mL/min/1.32w5Qcaf than | | CENTER - | | [...] + | [facility] | [address] | [place], [place] | [phone] | | [facility] | | [address] | | | - LABORATORY | | [...] [address] | [place] | [phone] | | [facility] | | [address] | | | - LABORATORY | | [...] [address] | [place] | [phone] | | [facility] | | [address] | | | - LABORATORY | | [...] [address] | [place] | [phone] | | [facility] | | [address] | | | - LABORATORY | | [...] | 0.67 | 0.60 - 1.30 | [facility] | | | | | mg/dL | [facility] | | | | | | MEDICAL | | | | | | CENTER - | | | | | | LABORATORY | | + + + + + + | eGFR, | >60Comment: GLOMERULAR | >=60 | [facility] | | | non- | FILTRATION | mL/min/1.73m2 | [facility] | | | Armenian | RATE,ESTIMATED | | MEDICAL | | | | mL/min/1.88p8Blqo than | | CENTER - | | [...] [address] | [place] | [phone] | | [facility] | | [address] | | | - LABORATORY | | [...] ST. | [address] | [place], [place] | [phone] | | [facility] | | [address] | | | - LABORATORY | | [...] (L) | 7 - 18 mg/dL | [facility] | | | | | | [facility] | | | | | | MEDICAL | | | | | | CENTER - | | | | | | LABORATORY | | + + + + + + | Creatinine | 0.57 (L) | 0.60 - 1.30 | [facility] | | | | | mg/dL | [facility] | | | | | | MEDICAL | | | | | | CENTER - | | | | | | LABORATORY | | + + + + + + | eGFR, | >60Comment: GLOMERULAR | >=60 | [facility] | | | non- | FILTRATION | mL/min/1.73m2 | [facility] | | | Armenian | RATE,ESTIMATED | | MEDICAL | | | | mL/min/1.27u8Maqm than | | CENTER - | | [...] [address] | [place] | [phone] | | [facility] | | [address] | | | - LABORATORY | | [...] [address] | [place] | [phone] | | [facility] | | [address] | | | - LABORATORY | | [...] [address] | [place] | [phone] | | [facility] | | [address] | | | - LABORATORY | | [...] | | | | | mg/dL | [facility] | | | | | | MEDICAL | | | | | | CENTER - | | | | | | LABORATORY | | + + + + + + | eGFR, | >60Comment: GLOMERULAR | >=60 | [facility] | | | non- | FILTRATION | mL/min/1.73m2 | [facility] | | | Armenian | RATE,ESTIMATED | | MEDICAL | | | | mL/min/1.66u0Djar than | | CENTER - | | [...] + | [facility] | [address] | [place] | [phone] | | [facility] | | [address] | | | - LABORATORY | | [...] | | | | PEPE HERNANDEZ MD ([id number]) | | | | | | on [...] [address] | [place] | [phone] | | [facility] | | [address] | | | - LABORATORY | | [...] + | [facility] | [address] | [place] | [phone] | | [facility] | | [address] | | | - LABORATORY | | [...] + | [facility] | [address] | [place], [place] | [phone] | | [facility] | | [address] | | | - LABORATORY | | [...] | small skin incision was made. 8 Kittitian paracentesis needle and sheath | | | [...] A small skin incision was made. 8 Kittitian paracentesis | | needle and sheath was [...] [address] | [place] | [phone] | | [facility] | | [address] | | | - LABORATORY | | [...] ST. | [address] | [place] | [phone] | | [facility] | | [address] | | | - LABORATORY | | [...] [address] | [place] | [phone] | | [facility] | | [address] | | | - LABORATORY | | [...] [address] | [place] | [phone] | | [facility] | | [address] | | | - LABORATORY | | [...] ST. | [address] | [place], [place] | [phone] | | [facility] | | [address] | | | - LABORATORY | | [...] [address] | [place] | [phone] | | [facility] | | [address] | | | - [...] (L) | 7 - 18 mg/dL | [facility] | | | | | | [facility] | | | | | | MEDICAL | | | | | | CENTER - | | | | | | LABORATORY | | + + + + + + | Creatinine | 0.51 (L) | 0.60 - 1.30 | [facility] | | | | | mg/dL | [facility] | | | | | | MEDICAL | | | | | | CENTER - | | | | | | LABORATORY | | + + + + + + | eGFR, | >60Comment: GLOMERULAR | >=60 | [facility] | | | non- | FILTRATION | mL/min/1.73m2 | [facility] | | | Armenian | RATE,ESTIMATED | | MEDICAL | | | | mL/min/1.62c5Fzjw than | | CENTER - | | [...] ST. | [address] | [place], [place] | [phone] | | [facility] | | [address] | | | - LABORATORY | | [...] ST. | [address] | [place], [place] | [phone] | | [facility] | | [address] | | | - LABORATORY | | [...] [address] | [place] | [phone] | | [facility] | | [address] | | | - LABORATORY | | [...] + | [facility] | [address] | [place] | [phone] | | [facility] | | [address] | | | - LABORATORY | | [...] + | [facility] | [address] | [place], [place] | [phone] | | [facility] | | [address] | | | - LABORATORY | | [...] | Basophils | | K/uL | [facility] | | | | | | MEDICAL [...] [address] | [place] | [phone] | | [facility] | | [address] | | | - LABORATORY | | [...] (L) | 7 - 18 mg/dL | [facility] | | | | | | [facility] | | | | | | MEDICAL | | | | | | CENTER - | | | | | | LABORATORY | | + + + + + + | Creatinine | 0.53 (L) | 0.60 - 1.30 | [facility] | | | | | mg/dL | [facility] | | | | | | MEDICAL | | | | | | CENTER - | | | | | | LABORATORY | | + + + + + + | eGFR, | >60Comment: GLOMERULAR | >=60 | [facility] | | | non- | FILTRATION | mL/min/1.73m2 | [facility] | | | Armenian | RATE,ESTIMATED | | MEDICAL | | | | mL/min/1.57a4Lujo than | | CENTER - | | [...] + | [facility] | [address] | [place] | [phone] | | [facility] | | [address] | | | - LABORATORY | | [...] ST. | [address] | [place], [place] | [phone] | | [facility] | | [address] | | | - LABORATORY | | [...] - 1.030 | [facility] | | | [place], | | | [facility] | | [...] ST. | [address] | [place], [place] | [phone] | | [facility] | | [address] | | | - LABORATORY | | [...] MD | | | | | | ([id number]) on 11/01/2016 | | | | | [...] - 1.030 | [facility] | | | [place], | | | [facility] | | [...] [address] | [place] | [phone] | | [facility] | | [address] | | | - LABORATORY | | [...] [address] | [place] | [phone] | | [facility] | | [address] | | | - LABORATORY | | [...] [address] | [place] | [phone] | | [facility] | | [address] | | | - LABORATORY | | [...] [address] | [place] | [phone] | | [facility] | | [address] | | | - LABORATORY | | [...] [address] | [place] | [phone] | | [facility] | | [address] | | | - LABORATORY | | [...] + | [facility] | [address] | [place] | [phone] | | [facility] | | [address] | | | - LABORATORY | | [...] [address] | [place] | [phone] | | [facility] | | [address] | | | - LABORATORY | | [...] [address] | [place] | [phone] | | [facility] | | [address] | | | - LABORATORY | | [...] + | [facility] | [address] | [place], [place] | [phone] | | [facility] | | [address] | | | - LABORATORY | | [...] + | [facility] | [address] | [place] | [phone] | | [facility] | | [address] | | | - LABORATORY | | [...] [address] | [place] | [phone] | | [facility] | | [address] | | | - LABORATORY | | [...] [address] | [place] | [phone] | | [facility] | | [address] | | | - LABORATORY | | [...] + | [facility] | [address] | [place] | [phone] | | [facility] | | [address] | | | - LABORATORY | | [...] [address] | [place] | [phone] | | [facility] | | [address] | | | - LABORATORY | | [...] (L) | 7 - 18 mg/dL | [facility] | | | | | [facility] | | | | | | MEDICAL | | | | | | CENTER - | | | | | | LABORATORY | | + + + + + + | Creatinine | 0.59 (L) | 0.60 - 1.30 | [facility] | | | | | mg/dL | [facility] | | | | | | MEDICAL | | | | | | CENTER - | | | | | | LABORATORY | | + + + + + + | eGFR, | >60Comment: GLOMERULAR | >=60 | [facility] | | | non- | FILTRATION | mL/min/1.73m2 | [facility] | | | [place] | RATE,ESTIMATED | | MEDICAL | | | | mL/min/1.48a8Zvnd than | | CENTER - | | [...] [address] | [place] | [phone] | | [facility] | | [address] | | | - LABORATORY | | [...] [address] | [place] | [phone] | | [facility] | | [address] | | | - LABORATORY | | [...] PDT | | | | | Starting [facility] 11/02/16 at 1249, | | | [...] PDT | | | | | ONCE, [facility] 11/02/16 at 0100, For 1 | [...] PDT | | | | | ONCE, [facility] 11/02/16 at 1715, For 1 | [...] PDT | | | | | ONCE, [place] 11/05/16 at 0815, For 1 | | [...] | | | | | Intravenous, ONCE, [facility] 11/06/16 at | | AM PDT [...] 8:34 | | | | | ONCE, [place] 11/05/16 at 0815, For 1 | | [...] 8:55 | | | | | ONCE, [facility] 11/06/16 at 0900, For 1 | [...] | | | over 4 Hours, ONCE, [facility] 11/01/16 | | | | | [...] | | | | | Intravenous, ONCE, [facility] 10/31/16 at | | | | | [...]
--- OUTSIDE RECORDS SUMMARY | ~2020-01-12 | XMS | Encounter Summary ---
Demographics + + + | Address | [address] | | | [place] [address] | + + + | Home Phone [...] Author + + + | Author | Merged With [facility] | | | and [place] | + + + | Organization | Merged With [facility] | | | and [place] | + + + | Address | Unknown | + + + | Phone | Unavailable | + + + Support + + + + + | Name | Relationship | Address | Phone | + + + + + | Joanne Pham | ECON | [address] | | | | | [place] | | | | | [address] | | + + + + + | Viktor Son | EDDIE | Unknown | | + + + + + | Edd Gill | ECON | Unknown | | + + + + + | Conner Barber | ECON | Unknown | | + + + + + Care Team Providers + +------+ + | Care Fry Cook Name | Role | Phone | + [...] + + | 09/08/ | Telephone | [facility] | Mitchell Stewart | Other (proactive | | 2020 | | GASTROENTEROLOGY | MD Conor [address] | screening) | | | | [address] | [place]VD [place], [place] | | | | | [place], [place] | [address] | | | | | [address] | | | | | | [phone] | | | +--------+ + + + [...]
--- OUTSIDE RECORDS SUMMARY | ~2020-01-12 | XMS | Encounter Summary ---
Demographics + + + | Address | [address] | | | [place] [address] | + + + | Home Phone | | + + + | Preferred Language | Unknown | + + + | Marital Status | Single | + + + | Protestant Affiliation | 1041 | + + + [...] + | Joanne Pham | ECON | [address] | | | | | [place] | | | | | [address] | | + + + + + | Viktor Son | EDDIE | Unknown | | + + + + + | Edd Gill | ECON | Unknown | | + + + + + | Conner Barber | ECON | Unknown | | + + + + + Care Team Providers + +------+ + | [employer] Name | Role | Phone | + [...] | | | [address] | [place] [address] | | | | | [place], [place] | [phone] | | | | | [address] | | | | | | [phone] | | | +--------+ + + + [...] and has an appt on 06/08 with [facility] and will give us a call after.Electronically signed by Deborah Mancuso at 06/05 9:25 AM PSTTelephone Encounter - Anbaella Serrano - 06/04/2019 4:04 PM Zach/Kayli dias, is returning call for Referral and would like a call back. Additional Call Details: Calling with phone numbers requested: [phone] Patients direct number [phone] Conner/friend elephone Encounter - Princess Tidwell - 05/27/2019 9:39 AM PSTTried calling back to inform that referral is in revie w, number listed is a fax number. 9:4 0 AM PSTTelephone Encounter - Gina Hinton I - 05/27/2019 8:30 AM PSTMichael- Forrest, is calling regarding Referral and would like a call back. Additional Call Details: Requesting referral status. Call back at: [phone] If this is a symptom based call, was patient offered triage? Not Applicable If this is a symptom based call and you were unable to immediately transfer the call to a miguelina mueller supervisor bit and shank department was caller made aware that if at any time she feels it is an emergency they sh ould call 911 or go to the nearest emergency room? not applicable documented in this encounter Plan of Treatment Not on filedocumented as of this encounter Visit Diagnoses Not on filedocumented in this encounter"
--- OUTSIDE RECORDS SUMMARY | ~2020-01-12 | XMS | Encounter Summary ---
Demographics + + + | Address | [address] | | | [place] [address] | + + + | Home Phone [...] Author + + + | Author | [facility] | | | and [place] | + + + | Organization | [facility] | | | and [place] | + + + | Address | Unknown | + + + | Phone | Unavailable | + + + Support + + + + + | Name | Relationship | Address | Phone | + + + + + | Joanne Pham | ECON | [address] | | | | | [place] | | | | | [address] | | + + + + + | Viktor Son | EDDIE | Unknown | | + + + + + | Edd Gill | ECON | Unknown | | + + + + + | Conner Barber | ECON | Unknown | | + + + + + Care Team Providers + +------+ + | Care Block Handler Name | Role | Phone | + +------+ + PCP | Unavailable | + +------+ + Encounter Details +--------+ + + + + | Date | Type | Department | Care Team | Description | +--------+ + + + + | 10/04/ | Hospital | [facility] | Carmen, | Alcohol withdrawal | | 2015 - | Encounter | [facility] [address] | MD [address] | seizure, | | | | [address] | [address] | uncomplicated (HCC); | | 10/07/ | | [place], [place] | [place] [address] | Urinary tract | | 2014 | | [address] | [phone] | infection with | | | | [phone] | | hematuria, site | | | | | | unspecified; Hepatic | | | | | | encephalopathy | | | | | | ([facility]); Anemia, | | | | | | unspecified anemia | | | | | | type; | | | | | | Thrombocytopenia | | | | | | ([facility]); | | | | | | Lymphocytopenia; | | | | | | Delirium tremens | | | | | | ([facility]); Alcohol | | | | | | abuse; 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 She was transferred to [facility]. She was found to have elevated NH3 [...] She was [facility] for [facility]. On the day of [...] on Oct 05 7:26AM Referring Provider Line: [phone] ID: [id number] Ct Head And C-spine Non-contrast [...] 05 2014 1:19AM Refe rring Provider Line: [phone] ID: [id number] Discharge Information: Follow up: PERNELL Luo [address] [place] [address] In 1 week Medication List START taking [...] prescriptions that you need to pick up man. You may get the following medications from [...] Note by Flora Seaman RN at 10/07/14 3393 Author: Flora Seaman RN Service: (none) Author Type: Registered Nurse Filed: 10/07/14 1200 Date of Service: 10/07/14 5373 Status: Signed Cash Applications Associate: Flora Seaman RN (Registered Nurse) Pt. D/C [...] 10/06/14826 Date of Service: 10/06/14817 Status: Signed Cash Applications Associate: Precious Miller MD (Physician) [facility] Service: Hospitalist Progress Note SUBJECTIVE Patient Summary: 44 y/o F with h/o alcohol dependence, cirrhosis transferred from [facility] on 10/05 with alcohol withdrawl seizure and [...] Management by Fortino Argueta RN at 10/05/14 3247 Author: Fortino Argueta RN Service: (none) Author Type: Java Software Developer Filed: 10/05/14 0893 Date of Service: 10/05/14 4036 Status: Signed Cash Applications Associate: Fortino Argueta RN (Java Software Developer) Met with Shaila to discuss DC plans. She is planning to go home with her family. She denies home medical equipment, or any outpatient medical services such as dialysis or coumadin cli woody. 10/05/14 1543 Discharge Planning Evaluation Admitting Diagnosis Seizure /ETOH [...] No Prescription Plan Yes Name of Pharmacy [facility] Previous home health equipment No Vascular access device No Ostomy/Drains/Appliances No Anticipated Disposition Facility Type Home Medicare Important Message (DEIDRE) Not applicable Met with: Shaila and discussed discharge planning, Pt is a 44 y.o., female Patient's PCP is: Efra Holguin Patient's insurance: Medicaid and [facility]--she has an appt there . Coverage concerns: [...] 0839 Date of Service: 10/05/1437 Status: Signed Cash Applications Associate: Yamileth Orozco RN (Registered Nurse) Patient somnolent [...] 10/05/14826 Date of Service: 10/05/14809 Status: Signed Cash Applications Associate: Jacob Larios MD (Physician) [facility] Service: Hospitalist Progress Note Hospital Day: LOS: [...] ago. Apparently today she went to the [facility] and that the last thing she remembers before blacking out. Whe n she recovered consciousness she was in the hospital. Apparently the patient had Blease to seizures and generalized tonic-clonic in nature. The patient did receive Ativan and due to the multiple comorbidities the patient was transfer to [facility] for further management. 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 female Height: 170.2 cm Weight: 61.8 kg CREATININE: 0.82 (10/05/14 0150) Estimated creatinine clearance - 86 mL/min NEUTROPHILS ABS Date Value Ref Range Status 10/05/2014 3.16 1.90 - 7.40 K/uL Final Comment: Testing performed at [facility];[address] [place] [address];[place] [address] Pharmacy dosing for renal function per Dr. [...] Date of Service: 10/05/14 030 Status: Signed Cash Applications Associate: Deonte Morales MD (Physician) [facility] Service: Hospitalist Admission History & Physical Date [...] ago. [facility] and that the last thing she remembers before blacking out. Whe n she recovered consciousness she was in the hospital. Apparently the patient had Blease to seizures and generalized tonic-clonic in nature. The patient did receive Ativan and due to the multiple comorbidities the patient was transfer to [facility] for further management. Of n ote the [...] ESOPHAGOGASTRODUODENOSCOPY; Surgeon: Mitchell Stewart IV, MD; Location: [facility] END[facility]COPY; Service: Gastroenterology; Laterality: N/A; [...] unable to recall, this information came from [facility] record Lactose Anaphylaxis Pt unable to recall, this information came from [facility] record Ciprofloxacin Other (See Comments) Pt. Unable to recall, this information came from [facility] record Ibuprofen Other (See Comments) Pt. Unable to recall, this information came from [facility] record (Not in a hospital [...] Value Units Date/Time Blood Culture Set 2 [[id number]] Collected: 10/05/14149 Specimen Information: Blood / Blood Updated: 10/05/14300 Blood Culture Set 1 [[id number]] Collected: 10/05/14149 Specimen Information: Blood / Blood Updated: 10/05/14300 hCG, serum, qualitative [[id number]] Collected: 10/05/14149 Specimen Information: Blood Updated: 10/05/14238 TEST,SERUM NEGATIVE Basic Metabolic Panel [[id number]] (Abnormal) Collected: 10/05/14149 Specimen Information: Blood Updated: 10/05/14238 SODIUM 140 mmol/L POTASSIUM 3.4 (L) mmol/L CHLORIDE 105 mmol/L CO2 24 mmol/L ANION GAP AGAP 14 mmol/L GLUCOSE 99 mg/dL BUN 8 mg/dL CREATININE 0.82 mg/dL BUN/CREAT 9 CALCIUM 8.2 (L) mg/dL EGFR >60 mL/min/1.73m2 CBC with differential [[id number]] (Abnormal) Collected: 10/05/14149 Specimen Information: Blood Updated: [...] BASOPHILS ABS 0.05 K/uL MRSA by PCR [[id number]] Collected: 10/04/14 2352 Specimen Information: Nasopharyngeal / Nares(Nose) Updated: 10/05/14 0111 SOURCE NARES(NOSE) MRSA PCR NEGATIVE labs from [place] shows White blood cell 2.5, hemoglobin of [...] who presents with Fever, seizures. Transfer from [facility]. Negative signs of meningismus a [...] prognosis poor unless Patient stop alcohol use. Answerer consult to see the p atient will [...] Procedures by Ricky BarraganEEG/EP T. at 10/05/14 8993 Author: Ricky BarraganEEG/EP TDania Service: Neurology Author Type: Registered EEG and Evoked Potential Tech Filed: 10/05/14 1348 Date of Service: 10/05/141347 Status: Signed Cash Applications Associate: Ricky BarraganEEG/EP TDania (Registered EEG and Evoked Potential Tech) Procedure Orders: 1. EEG [[id number]] ordered by Deonte Morales MD at 10/05/14 0343 EEG REPORT Patient: Shaila Son ID: [id number] : 1970 [age]: [age] Gender: Female Height: Weight: Physician: Marjorie Simmons MD Screen Printing Loader Unloader: Juan Referring Physician: Carmen Recording Date: 10/05/2014 [...] 10/05/14318 Date of Service: 10/05/14318 Status: Signed Cash Applications Associate: Xu Villanueva RN (Registered Nurse) Dr. Raines (hospitalist) at bedside. Xu Villanueva RN 10/05/14318 onver miriam Transaction, Provider Unknown - 10/05/2014 1:44 AM PDT ED Notes by Xu Villanueva RN at 10/05/14143 Author: Xu Villanueva RN Service: Emergency Department Author Type: Registered Nurse Filed: 10/05/14143 Date of Service: 10/05/14143 Status: Signed Cash Applications Associate: Xu Villanueva RN (Registered Nurse) Lab at bedside Xu Villanueva RN 10/05/14143 onver miriam Transaction, Provider Unknown - 10/05/2014 1:05 AM PDT ED Notes by Xu Villanueva RN at 10/05/14 0105 Author: Xu Villanueva RN Service: Emergency Department Author Type: Registered Nurse Filed: 10/05/14105 Date of Service: 10/05/14104 Status: Signed Cash Applications Associate: Xu Villanueva RN (Registered Nurse) Lab called [...] 10/04/142343 Date of Service: 10/04/142343 Status: Signed Cash Applications Associate: Xu Villanueva RN (Registered Nurse) Lab called for blood draw, cultures x2 Xu Villanueva RN 10/04/142343 hitak Leonarda gonzalez DO - 10/04/2014 11:18 PM PDTFormatting of this note might be different from the o riginal. ED Provider Notes by Leonarda Rich DO at 10/04/142317 Author: Leonarda Rich DO Service: Emergency Department Author Type: Physician Filed: 10/06/14 1507 Date of Service: 10/04/142317 Status: Signed Cash Applications Associate: Leonarda Rich DO (Physician) Procedures Additional Documentation Procedures [facility] Department of Emergency Medicine Pre-arrival Provider: Another [...] with Seizures Patient presents in transfer from [facility]. She was found down, but with breathing and pulse at a [place]. Evidently had a seizure. Unknown if she struck her head. She is presently complain ing of a headache. She had 2 more seizures at [facility], was treated with ativan, and has had [...] ESOPHAGOGASTRODUODENOSCOPY; Surgeon: Mitchell Stewart IV, MD; Location: [facility] ENDOS[facility]; Service: Gastroenterology; Laterality: N/A; [...] unable to recall, this information came from [facility] record Lactose Anaphylaxis Pt unable to recall, this information came from [facility] record Ciprofloxacin Other (See Comments) Pt. Unable to recall, this information came from [facility] record Ibuprofen Other (See Comments) Pt. Unable to recall, this information came from [facility] record History Social History Marital [...] a lymphocytopenia, H/H 9.7/31.1 [place] [address] - moderate th rombocytopenia CMP Glucose 89, [...] technique. [facility] is still [facility]als[facility] She requires admission as this appears to be a combination of withdrawals seizures, sepsis, and hepatic encephalopathy. Blood culture s have been drawn, urine culture was done at [facility]. I have ordered vancomycin and cef triaxone for her urinary tract infection. I have discussed the case with Dr. Raines who [facility] I reviewed the results of the diagnostic studies with the patient. Explain ed the reason for admission and the admission process. Explained the admission process and t he reason for admission. Records Reviewed Old medical records. Nursing notes. Patient was seen in the emergency department at [facility] and transferred here. Review of lab which [...] Ref Range Date/Time Blood Culture Set 1 [[id number]] Collected: 10/05/14 0150 Order Status: Completed Updated: 10/06/14834 Specimen Information: Blood / Blood Specimen Description BLOOD SPECIAL REQUESTS LH SPECIAL REQUESTS Result: Testing performed at [facility];[address];[place] [address] CULTURE NO GROWTH CULTURE Result: Testing performed at [facility], [address] [place] [address] Blood Culture Set 2 [[id number]] Collected: 10/05/14149 Order Status: Completed Updated: 10/06/14834 Specimen Information: Blood / Blood Specimen Description BLOOD SPECIAL REQUESTS RH SPECIAL REQUESTS Result: Testing performed at [facility];[address];[place] [address] CULTURE NO GROWTH CULTURE Result: Testing performed at [facility], [address] [place] [address] hCG, serum, qualitative [[id number]] Collected: 10/05/14149 Order Status: Completed Updated: 10/05/14238 Specimen Information: Blood TEST,SERUM NEGATIVE NEGATIVE Basic Metabolic Panel [[id number]] (Abnormal) Collected: 10/05/14149 Order Status: Completed Updated: [...] EGFR >60 >60 mL/min/1.73m2 CBC with differential [[id number]] (Abnormal) Collected: 10/05/14149 Order Status: Completed Updated: [...] 0.00 - 0.10 K/uL MRSA by PCR [[id number]] Collected: 10/04/14 2352 Order Status: Completed Updated: [...] 05 2014 1:19AM Referring Provider Keri ne: [phone] ID: [id number] Narrative: EXAM: CT HEAD AND [...] Notes by Xu Villanueva RN at 10/04/14 0296 Author: Xu Villanueva RN Service: Emergency Department Author Type: Registered Nurse Filed: 10/04/142250 Date of Service: 10/04/142250 Status: Signed Cash Applications Associate: Xu Villanueva RN (Registered Nurse) Dr. Rich informed of the pt's fever. Xu Villanueva RN 10/04/142250 onver miriam Transaction, Provider Unknown - 10/04/2014 10:46 PM PDT ED Notes by Xu Villanueva RN at 10/04/142245 Author: Xu Villanueva RN Service: Emergency Department Author Type: Registered Nurse Filed: 10/04/142246 Date of Service: 10/04/142245 Status: Signed Cash Applications Associate: Xu Villanueva RN (Registered Nurse) Patient placed on cardiac monitoring. nuclear engineering technician called, informed of patient. Xu Villanueva RN 10/04/142246 onver miriam Transaction, Provider Unknown - 10/04/2014 10:29 PM PDT ED Notes by Xu Villanueva RN at 10/04/142228 Author: Xu Villanueva RN Service: Emergency Department Author Type: Registered Nurse Filed: 10/04/142246 Date of Service: 10/04/142228 Status: Signed Cash Applications Associate: Xu Villanueva RN (Registered Nurse) Patient identifiers [...] 10/04/142226 Date of Service: 10/04/142226 Status: Signed Cash Applications Associate: Jeremi Cai RN (Registered Nurse) Bed: 12 Expected date: Expected time: Means of arrival: Comments: [facility] onver miriam Transaction, Provider Unknown - 10/04/2014 10:04 PM PDT ED Notes by Jodie Cowan RN at 10/04/142203 Author: Jodie Cowan RN Service: (none) Author Type: Registered Nurse Filed: 10/04/142204 Date of Service: 10/04/142203 Status: Signed Cash Applications Associate: Jodie Cowan RN (Registered Nurse) Pt stable en route to facility per [facility]. VS: 145/77, 97, 18, 96% on RA Jodie Cowan RN 10/04/142204 onver miriam Transaction, Provider Unknown - 10/04/2014 9:12 PM PDT ED Notes by Prince Anand RN at 10/04/142111 Author: Prince Anand RN Service: (none) Author Type: Registered Nurse Filed: 10/04/142118 Date of Service: 10/04/142111 Status: Signed Cash Applications Associate: Prince Anand RN (Registered Nurse) Patient was reported by EMS found down at the [facility] [place]. RN at [facility] the patient has history of seizures, [...] 10/07/14712 Date of Service: 10/07/14712 Status: Signed Cash Applications Associate: Jelly Moreno RN (Registered Nurse) Call light [...] EXTERNAL | | | | performed at [facility] | | LAB | | | | [address];[place] | | | | | | [address] | | | | + + + [...] EXTERNAL | | | | performed at [facility];[address] | mmol/L | LAB | | | | [address];[place] | | | | | | [address] | | | | + + + + + + | K | 4.1Comment: Testing | 3.5 - 4.9 | EXTERNAL | | | | performed at [facility];[address] | mmol/L | LAB | | | | [address];[place] | | | | | | [address] | | | | + + + + + + | Cl | 108Comment: Testing | 99 - 109 mmol/L | EXTERNAL | | | | performed at [facility];[address] | | LAB | | | | [address];[place] | | | | | | [address] | | | | + + + + + + | CO2 | 20 (L)Comment: Testing | 23 - 32 mmol/L | EXTERNAL | | | | performed at [facility];[address] | | LAB | | | | [address];[place] | | | | | | [address] | | | | + + + + + + | Anion Gap | 13Comment: Testing | 5 - 20 mmol/L | EXTERNAL | | | | performed at [facility];[address] | | LAB | | | | [address];[place] | | | | | | [address] | | | | + + + + + + | Glucose, | 91Comment: Testing | 65 - 99 mg/dL | EXTERNAL | | | Fasting | performed at [facility];[address] | | LAB | | | | [address];[place] | | | | | | [address] | | | | + + + + + + | BUN | 6 (L)Comment: Testing | 8 - 25 mg/dL | EXTERNAL | | | | performed at [facility];[address] | | LAB | | | | [address];[place] | | | | | | [address] | | | | + + + + + + | Creatinine | 0.96Comment: Testing | 0.50 - 1.00 | EXTERNAL | | | | performed at [facility];[address] | mg/dL | LAB | | | | [address];[place] | | | | | | [address] | | | | + + + + + + | BUN/Creatin | 7Comment: Testing | | EXTERNAL | | | ine Ratio | performed at [facility];[address] | | LAB | | | | [address];[place] | | | | | | [address] | | | | + + + + + + | Calcium | 8.3 (L)Comment: Testing | 8.5 - 10.5 | EXTERNAL | | | | performed at [facility];[address] | mg/dL | LAB | | | | [address];[place] | | | | | | [address] | | | | + + + [...] | | | | | | at [facility];[address] | | | | | | [address];[place] [address] | | | | + + + [...] EXTERNAL | | | | performed at [facility], [address] | K/uL | LAB | | | | [address], | | | | | | [place] [id number] | | | | + + + + + + | Non- | 3.32 (L)Comment: Testing | 3.70 - 5.10 | EXTERNAL | | | Red Blood | performed at [facility], [address] | M/uL | LAB | | | Cells | [address], | | | | | Counted | [place] [id number] | | | | + + + + + + | Hemoglobin | 9.7 (L)Comment: Testing | 11.3 - 15.5 | EXTERNAL | | | | performed at [facility], [address] | g/dL | LAB | | | [address], | | | | | | [place] [address] | | | | + + + + + + | Hematocrit, | 30.4 (L)Comment: Testing | 34.0 - 46.0 % | EXTERNAL | | | POC | performed at [facility], [address] | | LAB | | | | [address], | | | | | | [place] [address] | | | | + + + + + + | MCV | 91.5Comment: Testing | 80.0 - 100.0 fl | EXTERNAL | | | | performed at [facility], [address] | | LAB | | | | [address], | | | | | | [place], [place] [address] | | | | + + + + + + | MCH | 29.4Comment: Testing | 27.0 - 34.0 pg | EXTERNAL | | | | performed at [facility], [address] | | LAB | | | [address], | | | | | | [place] [address] | | | | + + + + + + | MCHC | 32.1Comment: Testing | 32.0 - 35.5 | EXTERNAL | | | | performed at [facility], [address] | g/dL | LAB | | | | [address], | | | | | | [place] [address] | | | | + + + + + + | RDW-CV | 50.8Comment: Testing | 37 - 53 fl | EXTERNAL | | | | performed at [facility], [address] | | LAB | | | | [address], | | | | | | [place] [address] | | | | + + + + + + | Platelet | 66 (L)Comment: Testing | 150 - 400 K/uL | EXTERNAL | | | Count | performed at [facility], [address] | | LAB | | | Plasma | [address], | | | | | | [place] [address] | | | | + + + + + + | MPV | 9.0Comment: Testing | fl | EXTERNAL | | | | performed at [facility], [address] | | LAB | | | | [address], | | | | | | [place] [address] | | | | + + + [...] EXTERNAL | | | | performed at [facility];[address] | | LAB | | | | [address];[place], [place] | | | | | | [address] | | | | + + + [...] | | | | | [place] [address] | | | | + + + + + + | K | 3.5Comment: Testing | 3.5 - 4.9 | EXTERNAL | | | | performed at [facility], [address] | mmol/L | LAB | | | | [address], | | | | | | [place] [address] | | | | + + + + + + | Cl | 104Comment: Testing | 99 - 109 mmol/L | EXTERNAL | | | | performed at [facility], [address] | | LAB | | | | [address], | | | | | | [place] [address] | | | | + + + + + + | CO2 | 23Comment: Testing | 23 - 32 mmol/L | EXTERNAL | | | | performed at [facility], [address] | | LAB | | | | [address], | | | | | | [place] [address] | | | | + + + + + + | Anion Gap | 8Comment: Testing | 5 - 20 mmol/L | EXTERNAL | | | | performed at [facility], [address] | | LAB | | | [address], | | | | | | [place] [address] | | | | + + + + + + | Glucose, | 100 (H)Comment: Testing | 65 - 99 mg/dL | EXTERNAL | | | Fasting | performed at [facility], [address] | | LAB | | | | [address], | | | | | | [place] [address] | | | | + + + + + + | BUN | 6 (L)Comment: Testing | 8 - 25 mg/dL | EXTERNAL | | | | performed at [facility], [address] | | LAB | | | | [address], | | | | | | [place] [address] | | | | + + + + + + | Creatinine | 0.57Comment: Testing | 0.50 - 1.00 | EXTERNAL | | | | performed at [facility], [address] | mg/dL | LAB | | | | [address], | | | | | | [place] [address] | | | | + + + + + + | BUN/Creatin | 11Comment: Testing | | EXTERNAL | | | ine Ratio | performed at [facility], [address] | | LAB | | | | [address], | | | | | | [place] [address] | | | | + + + + + + | Calcium | 7.9 (L)Comment: Testing | 8.5 - 10.5 | EXTERNAL | | | | performed at [facility], [address] | mg/dL | LAB | | | | [address], | | | | | | [place] [address] | | | | + + + + + + | Protein, | 6.4Comment: Testing | 6.3 - 8.2 g/dL | EXTERNAL | | | Total | performed at [facility], [address] | | LAB | | | | [address], | | | | | | [place] [address] | | | | + + + + + + | Albumin | 2.8 (L)Comment: Testing | 3.6 - 5.0 g/dL | EXTERNAL | | | | performed at [facility], [address] | | LAB | | | | [address], | | | | | | [place] [address] | | | | + + + + + + | Globulin | 3.6Comment: Testing | 1.3 - 4.9 g/dL | EXTERNAL | | | | performed at [facility], [address] | | LAB | | | | [address], | | | | | | [place] [address] | | | | + + + + + + | A/G Ratio | 0.8 (L)Comment: Testing | 1.0 - 2.4 | EXTERNAL | | | | performed at [facility], [address] | | LAB | | | | [address], | | | | | | [place] [address] | | | | + + + + + + | Bilirubin | 1.2Comment: Testing | 0.1 - 1.5 mg/dL | EXTERNAL | | | Total | performed at [facility], [address] | | LAB | | | | [address], | | | | | | [place] [address] | | | | + + + + + + | ALP, | 79Comment: Testing | 35 - 115 U/L | EXTERNAL | | | External | performed at [facility], [address] | | LAB | | | | [address], | | | | | | [place] [address] | | | | + + + + + + | AST | 47 (H)Comment: Testing | 10 - 45 U/L | EXTERNAL | | | | performed at [facility], [address] | | LAB | | | | [address], | | | | | | [place] [address] | | | | + + + + + + | ALT | 18Comment: Testing | 10 - 65 U/L | EXTERNAL | | | | performed at [facility], [address] | | LAB | | | | [address], | | | | | | [place] [address] | | | | + + + [...] | | | | | | at [facility], [address] [address] | | | | | | [address], | | | | | | [place] [address] | | | | + + + [...] | EXTERNAL LAB | | performed at [facility];[address] [facility];[place] [address] 027 NAP1 BI | | | 027 NAP1 BI PRESUMPTIVE NEGATIVE | | | Detection of 027 NAP1 BI strains of C. difficile is presumptive and | | | for epidemiological purposes and not intended to guide or monitor | | | treatment for C. difficile infections. Testing performed at [facility];[address] | | | [facility];[place] [address] | | + + + + +---------+ [...] 7:26AM Referring Provider Line: | | | [phone] ID: [id number] | | + + + + + + | Narrative | Performed At | + + + | EXAM: ABDOMEN ULTRASOUND LIMITED, [facility] EXAM DATE: 10/05/2014 | | | [...] 2014 7:26AM Referring Provider Line: | | [phone] ID: [id number] | |COMPARISON: 03/25/2013. | | [...] Oct 05 2014 7:26AM Referring Provider Line: [phone] ID: [id number] | + + Culture, Urine [...] CEPHALOSPORINS. | | | Testing performed at [facility], [address] [facility], | | | [place] [address] | | + + + + +---------+ [...] | | | | | [place] [address] | | | | + + + [...] | | | | | [place] [address] | | | | + + + + + + | Bacteria, | 4+ (A)Comment: Testing | | EXTERNAL | | | UA | performed at [facility], [address] | | LAB | | | | [address], | | | | | | [place] [address] | | | | + + + + + + | HYALINE | NONE SEENComment: | | EXTERNAL | | | CASTS UA | Testing performed at | | LAB | | | | [facility], [address] | | | | | | [place] | | | | | | [address] | | | | + + + [...] | | | | | [place] [address] | | | | + + + + + + | Clarity, | CLOUDYComment: Testing | | EXTERNAL | | | Urine | performed at [facility], [address] | | LAB | | | | [address], | | | | | | [place] [address] | | | | + + + + + + | Specific | 1.016Comment: Testing | 1.002 - 1.030 | EXTERNAL | | | [place], | performed at [facility], [address] | | LAB | | | Urine | [address], | | | | | | [place] [address] | | | | + + + + + + | Leukocyte | MODERATE (A)Comment: | | EXTERNAL | | | Esterase, | Testing performed at | | LAB | | | Urine | [facility], [address] | | | | | | [place] | | | | | | [address] | | | | + + + + + + | Nitrite, | NEGATIVEComment: Testing | | EXTERNAL | | | Urine | performed at [facility], [address] | | LAB | | | | [address] [place], | | | | | | [place] [address] | | | | + + + + + + | Urobilinoge | 1.0Comment: Testing | mg/dL | EXTERNAL | | | n, Urine | performed at [facility], [address] | | LAB | | | | [address], | | | | | | [place] [address] | | | | + + + + + + | Protein, | 300 (A)Comment: Testing | mg/dL | EXTERNAL | | | Urine | performed at [facility], [address] | | LAB | | | | [address] [place], | | | | | | [place] [address] | | | | + + + + + + | pH, Urine | 7.5Comment: Testing | 5.0 - 8.0 | EXTERNAL | | | | performed at [facility], [address] | | LAB | | | | [address] [place], | | | | | | [place] [address] | | | | + + + + + + | Blood, | LARGE (A)Comment: | | EXTERNAL | | | Urine | Testing performed at | | LAB | | | | [facility], [address] [facility] | | | | | | [place] | | | | | | [address] | | | | + + + + + + | Ketones | NEGATIVEComment: Testing | mg/dL | EXTERNAL | | | | performed at [facility], [address] | | LAB | | | | [address], | | | | | | [place] [address] | | | | + + + + + + | Bilirubin, | NEGATIVEComment: Testing | | EXTERNAL | | | Urine | performed at [facility], [address] | | LAB | | | | [address], | | | | | | [place] [address] | | | | + + + + + + | Glucose, | NEGATIVEComment: Testing | mg/dL | EXTERNAL | | | Urine | performed at [facility], [address] | | LAB | | | | [address], | | | | | | [place] [address] | | | | + + + [...] RH | | | Testing performed at [facility];[address] [facility] | | | Blvd;[place] [address] CULTURE | | | NO GROWTH | | | Testing performed at [facility], [address] [facility] | | | [address] | | + + + + +---------+ [...] LH | | | Testing performed at [facility];[address] | | [address];[place] [address] CULTURE | | | NO GROWTH | | | Testing performed at [facility], [address], [place], [place] | | | [address] | | + + + + +---------+ [...] | | | Patient | performed at [facility];[address] | | LAB | | | | [address];[place], [place] | | | | | | [address] | | | | + + + [...] | | | | | performed at [facility] | | | | | | [address];[place], [place] | | | | | | [address] | | | | + + + [...] EXTERNAL | | | | performed at [facility];[address] | K/uL | LAB | | | | [address] | | | | | | [address] | | | | + + + + + + | Non- | 3.38 (L)Comment: Testing | 3.70 - 5.10 | EXTERNAL | | | Red Blood | performed at [facility];[address] | M/uL | LAB | | | Cells | [address];[place] | | | | | Counted | [id number] | | | | + + + + + + | Hemoglobin | 10.1 (L)Comment: Testing | 11.3 - 15.5 | EXTERNAL | | | | performed at [facility];[address] | g/dL | LAB | | | | [address];[place] | | | | | | [address] | | | | + + + + + + | Hematocrit, | 30.5 (L)Comment: Testing | 34.0 - 46.0 % | EXTERNAL | | | POC | performed at [facility];[address] | | LAB | | | | [address];[place] | | | | | | [address] | | | | + + + + + + | MCV | 90.4Comment: Testing | 80.0 - 100.0 fl | EXTERNAL | | | | performed at [facility];[address] | | LAB | | | | [address];[place] | | | | | | [address] | | | | + + + + + + | MCH | 29.9Comment: Testing | 27.0 - 34.0 pg | EXTERNAL | | | | performed at [facility];[address] | | LAB | | | | [address];[place] | | | | | | [address] | | | | + + + + + + | MCHC | 33.1Comment: Testing | 32.0 - 35.5 | EXTERNAL | | | | performed at [facility];[address] | g/dL | LAB | | | | [address];[place] | | | | | | [address] | | | | + + + + + + | RDW-CV | 51.6Comment: Testing | 37 - 53 fl | EXTERNAL | | | | performed at [facility];[address] | | LAB | | | | [address];[place] | | | | | | [address] | | | | + + + + + + | Platelet | 62 (L)Comment: Testing | 150 - 400 K/uL | EXTERNAL | | | Count | performed at [facility];[address] | | LAB | | | Plasma | [address];[place] | | | | | | [address] | | | | + + + + + + | MPV | 8.5Comment: Testing | fl | EXTERNAL | | | | performed at [facility];[address] | | LAB | | | | [address];[place] | | | | | | [address] | | | | + + + + + + | Differentia | AUTOMATEDComment: | | EXTERNAL | | | l Type | Testing performed at | | LAB | | | | [facility];[address] | | | | | [address];[place] [address] | | | | + + + + + + | % Segmented | 77.06Comment: Testing | % | EXTERNAL | | | | performed at [facility];[address] | | LAB | | | Neutrophils | [address];[place] | | | | | | [address] | | | | + + + + + + | % | 8.17Comment: Testing | % | EXTERNAL | | | Lymphocytes | performed at [facility];[address] | | LAB | | | | [address];[place] | | | | | | [address] | | | | + + + + + + | % Monocytes | 13.35Comment: Testing | % | EXTERNAL | | | | performed at [facility];[address] | | LAB | | | | [address];[place] | | | | | | [address] | | | | + + + + + + | % | 0.16Comment: Testing | % | EXTERNAL | | | Eosinophils | performed at [facility];[address] | | LAB | | | | [address];[place] | | | | | | [address] | | | | + + + + + + | % Basophils | 1.26Comment: Testing | % | EXTERNAL | | | | performed at [facility];[address] | | LAB | | | | [address];[place] | | | | | | [address] | | | | + + + + + + | Absolute | 3.16Comment: Testing | 1.90 - 7.40 | EXTERNAL | | | Segmented | performed at [facility];[address] | K/uL | LAB | | | Neutrophils | [address];[place] | | | | | | [address] | | | | + + + + + + | Absolute | 0.34 (L)Comment: Testing | 1.00 - 3.90 | EXTERNAL | | | Lymphocytes | performed at [facility];[address] | K/uL | LAB | | | | [address];[place] | | | | | | [address] | | | | + + + + + + | Absolute | 0.55Comment: Testing | 0.00 - 0.80 | EXTERNAL | | | Monocytes | performed at [facility];[address] | K/uL | LAB | | | | [address];[place] | | | | | | [address] | | | | + + + + + + | Absolute | 0.01Comment: Testing | 0.00 - 0.50 | EXTERNAL | | | Eosinophils | performed at [facility];[address] | K/uL | LAB | | | | [address];[place] | | | | | | [address] | | | | + + + + + + | Absolute | 0.05Comment: Testing | 0.00 - 0.10 | EXTERNAL | | | Basophils | performed at [facility];[address] | K/uL | LAB | | | | [address];[place] | | | | | | [address] | | | | + + + [...] | | | QUALITATIVE | performed at [facility] | | LAB | | | | [address];[place], [place] | | | | | | [address] | | | | + + + [...] EXTERNAL | | | | performed at [facility] | | LAB | | | | [facility], [place] | | | | | | [address] | | | | + + + [...] EXTERNAL | | | | performed at [facility];[address] | | LAB | | | | [address];[place] | | | | | | [address] | | | | + + + [...] EXTERNAL | | | | performed at [facility];[address] | mmol/L | LAB | | | | [address];[place] | | | | | | [address] | | | | + + + + + + | K | 3.4 (L)Comment: Testing | 3.5 - 4.9 | EXTERNAL | | | | performed at [facility];[address] | mmol/L | LAB | | | | [address];[place] | | | | | | [address] | | | | + + + + + + | Cl | 105Comment: Testing | 99 - 109 mmol/L | EXTERNAL | | | | performed at [facility];[address] | | LAB | | | | [address];[place] | | | | | | [address] | | | | + + + + + + | CO2 | 24Comment: Testing | 23 - 32 mmol/L | EXTERNAL | | | | performed at [facility];[address] | | LAB | | | | [address];[place] | | | | | | [address] | | | | + + + + + + | Anion Gap | 14Comment: Testing | 5 - 20 mmol/L | EXTERNAL | | | | performed at [facility];[address] | | LAB | | | | [address];[place] | | | | | | [address] | | | | + + + + + + | Glucose, | 99Comment: Testing | 65 - 99 mg/dL | EXTERNAL | | | Fasting | performed at [facility];[address] | | LAB | | | | [address];[place] | | | | | | [address] | | | | + + + + + + | BUN | 8Comment: Testing | 8 - 25 mg/dL | EXTERNAL | | | | performed at [facility];[address] | | LAB | | | | [address];[place] | | | | | | [address] | | | | + + + + + + | Creatinine | 0.82Comment: Testing | 0.50 - 1.00 | EXTERNAL | | | | performed at [facility];[address] | mg/dL | LAB | | | | [address];[place] | | | | | | [address] | | | | + + + + + + | BUN/Creatin | 9Comment: Testing | | EXTERNAL | | | ine Ratio | performed at [facility];[address] | | LAB | | | | [address];[place] | | | | | | [address] | | | | + + + + + + | Calcium | 8.2 (L)Comment: Testing | 8.5 - 10.5 | EXTERNAL | | | | performed at [facility];[address] | mg/dL | LAB | | | | [address];[place] | | | | | | [address] | | | | + + + [...] | | | | | | at [facility];[address] | | | | | [address];[place] [address] | | | | + + + [...] MD on Sep 1:19AM Referring Provider Line: [phone] ID: [id number] | | + + + [...] | | 2014 1:19AM Referring Provider Line: [phone] ID: [id number] | | | |Bones: No [...] 05 2014 1:19AM Referring Provider Keri ne: [phone] ID: [id number] | + + MRSA NAAT (10/04/2014 11:52 PM PDT) + + | Specimen | + + | | + + + + + | Narrative | Performed At | + + + | S[facility]ARES(NOSE) MRSA | EXTERNAL LAB | | PCR NEGATIVE Testing | | | performed at [facility];[address] [place] [address];[place] [address] | | + + + + +---------+ [...]
--- OUTSIDE RECORDS SUMMARY | ~2020-01-12 | XMS | Encounter Summary ---
Demographics + + + | Address | [address] | | | [place] [address] | + + + | Home Phone | | + + + | Preferred Language | Unknown | + + + | Marital Status | Single | + + + | Orthodoxy Affiliation | 1041 | + + + | Race | or | + + + | Ethnic Group | Not or | + + + Author + + + | Author | [facility] | | | and [place] | + + + | Organization | [facility] | | | and [place] | + + + | Address | Unknown | + + + | Phone | Unavailable | + + + Support + + + + + | Name | Relationship | Address | Phone | + + + + + | Joanne Pham | ECON | [address] | | | | | [place] | | | | | [address] | | + + + + + | Viktor Berry | EDDIE | Unknown | | + + + + + | Edd Gill | ECON | Unknown | | + + + + + | Conner Barber | ECON | Unknown | | + + + + + Care Team Providers + +------+ + | Care Dietary Tech Name | Role | Phone | [...] 2016 | | CONVERSION 888 | [place] [address] | | | | | [place] | [place] | | | | | [place] | [id number] | | | | | [address] | | | | | | [phone] | | | +--------+ + + + [...] | maxP.35 mmHg TR Vmax: 2.84 m/s Stencil Cutter Machine: EMILY | | | Authenticated by: Josee Tinocopuerto real Report Date/Time: 03-07-2017 | | | 20:49:19 | | + + + + + | Procedure Note | + + | Edgardo Dean Conversion - 11/28/2018 6:34 PM PDT Patient Name: Jose Miguel BERRY of | | : 1970 Performing Physician: Josee | | Alejandrinapuerto real INDICATIONS------ | | -----Bacteremia, r/o endocarditis CONCLUSIONS [...] cmLVPWd: | | 1.19 cmLVOT Area: 3.57 [id number] Diam: 2.13 cm%FS: 14.01 %EF(Teich): 30.44 | [...] mlLAESV Index (A-L): 47.14 ml/m2LAAs A2C: 22.70 [id number] A-L A2C: 81.19 | | mlLALs A2C: 5.38 cmLAAs A4C: 22.20 [id number] A-L A4C: 70.14 mlLALs A4C: 5.21 | | cmRAAs: 11.60 kr8AOANY A-L: 25.98 mlRAESV MOD: 25.22 mlRALs: 4.40 cmTAPSE: | | 2.53 cmAV maxP.09 mmHgAV meanP.09 mmHgAV Vmax: 1.42 m/Uvaldo Vmean: 0.95 | | m/Uvaldo VTI: 28.76 cmAVA Vmax: 2.80 cm2AVA (VTI): 2.57 tr9YKZG Vmax: 0.00 | | cm2/m2AVAI (VTI): 0.00 cm2/m2LVOT maxP.99 mmHgLVOT meanP.61 mmHgLVSI Dopp: | | 42.64 ml/m2LVSV Dopp: 74.20 mlLVOT Vmax: 1.11 m/sLVOT Vmean: 0.76 m/sLVOT VTI: | | 20.74 cmMV A Juan A: 0.72 m/sMV DecT: 208.92 msMV E Juan A: 0.75 m/sMV E/A Ratio: | | 1.03MV PHT: 60.58 msMVA By PHT: 3.63 pn4Xqlncy e': 0.05 m/sSeptal E/e': | | 12.78Lateral e': 0.07 m/sLateral E/e': 10.30RAP: 5 mmHgRVSP: 37.35 mmHgTR maxPG: | | 32.35 mmHgTR Vmax: 2.84 m/s Stencil Cutter Machine: DBSAuthenticated by: Josee | | [facility] CenterraReport Date/Time: 03-07-2017 20:49:19 IMPRESSION: 1. [...] |TR Vmax: 2.84 m/s | | | |Stencil Cutter Machine: DBS | |Authenticated by: Josee Little | [...]
--- OUTSIDE RECORDS SUMMARY | ~2020-01-12 | XMS | Encounter Summary ---
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 Gap | 13Comment: Testing | 5 - 20 mmol/L | EXTERNAL | | | | performed at [facility];888 | | LAB | | | | [address];[place] | | | | | | [address] | | | | + + + + + + | Glucose, | 87Comment: Testing | 65 - 99 mg/dL | EXTERNAL | | | Fasting | performed at [facility];[address] | | LAB | | | | [address];[place] | | | | | | [address] | | | | + + + + + + | BUN | 9Comment: Testing | 8 - 25 mg/dL | EXTERNAL | | | | performed at [facility];[address] | | LAB | | | | [address];[place] | | | | | | [address] | | | | + + + + + + | Creatinine | 0.57Comment: Testing | 0.50 - 1.00 | EXTERNAL | | | | performed at [facility];888 | mg/dL | LAB | | | | [address];[place] | | | | | | [address] | | | | + + + + + + | BUN/Creatin | 16Comment: Testing | | EXTERNAL | | | ine Ratio | performed at [facility];888 | | LAB | | | | [address];[place] | | | | | | [address] | | | | + + + + + + | Calcium | 7.1 (L)Comment: Testing | 8.5 - 10.5 | EXTERNAL | | | | performed at [facility];888 | mg/dL | LAB | | | | [address];[place] | | | | | | [address] | | | | + + + [...] | | | | | at [facility];[address] | | | | | | [address];[place] [address] | | | | + + + [...] | | | | performed at [facility];888 | | | | | | [address];[place], [place] | | | | | | [address] | | | | + + + [...] | | | | performed at [facility];[address] | | | | | | [address];[place] | | | | | | [address] | | | | + + + [...] | | | | performed at [facility];888 | mmol/L | LAB | | | | [address];[place] | | | | | | [address] | | | | + + + + + + | K | 5.6 (H)Comment: MODERATE | 3.5 - 4.9 | EXTERNAL | | | | HEMOLYSISTesting | mmol/L | LAB | | | | performed at [facility];888 | | | | | | [address];[place] | | | | | | [address] | | | | + + + + + + | Cl | 102Comment: Testing | 99 - 109 mmol/L | EXTERNAL | | | | performed at [facility];888 | | LAB | | | | [address];[place] | | | | | | [address] | | | | + + + + + + | CO2 | 24Comment: Testing | 23 - 32 mmol/L | EXTERNAL | | | | performed at [facility];[address] | | LAB | | | | [address];[place] | | | | | | [address] | | | | + + + + + + | Anion Gap | 16Comment: Testing | 5 - 20 mmol/L | EXTERNAL | | | | performed at [facility];[address] | | LAB | | | | [address];[place] | | | | | | [address] | | | | + + + + + + | Glucose, | 79Comment: Testing | 65 - 99 mg/dL | EXTERNAL | | | Fasting | performed at [facility];[address] | | LAB | | | | [address];[place] | | | | | | [address] | | | | + + + + + + | BUN | 7 (L)Comment: Testing | 8 - 25 mg/dL | EXTERNAL | | | | performed at [facility];[address] | | LAB | | | | [address];[place] | | | | | | [address] | | | | + + + + + + | Creatinine | 0.58Comment: Testing | 0.50 - 1.00 | EXTERNAL | | | | performed at [facility];888 | mg/dL | LAB | | | | [address];[place] | | | | | | [address] | | | | + + + + + + | BUN/Creatin | 12Comment: Testing | | EXTERNAL | | | ine Ratio | performed at [facility];888 | | LAB | | | | [address];[place] | | | | | | [address] | | | | + + + + + + | Calcium | 7.4 (L)Comment: Testing | 8.5 - 10.5 | EXTERNAL | | | | performed at [facility];888 | mg/dL | LAB | | | | [address];[place] | | | | | | [address] | | | | + + + [...] | | | | | at [facility];[address] | | | | | | [address];[place] [address] | | | | + + + [...] | | | | | | [address], [place] | | | | | | [address] | | | | + + + [...] | | | | performed at [facility];888 | K/uL | LAB | | | | [address];[place] | | | | | | [address] | | | | + + + + + + | Non- | 2.72 (L)Comment: Testing | 3.70 - 5.10 | EXTERNAL | | | Red Blood | performed at [facility];888 | M/uL | LAB | | | Cells | [address];[place] | | | | | Counted | [address] | | | | + + + + + + | Hemoglobin | 9.0 (L)Comment: Testing | 11.3 - 15.5 | EXTERNAL | | | | performed at [facility];888 | g/dL | LAB | | | | [address];[place] | | | | | | [address] | | | | + + + + + + | Hematocrit, | 26.2 (L)Comment: Testing | 34.0 - 46.0 % | EXTERNAL | | | POC | performed at [facility];888 | | LAB | | | | [address];[place] | | | | | | [address] | | | | + + + + + + | MCV | 96.3Comment: Testing | 80.0 - 100.0 fl | EXTERNAL | | | | performed at [facility];[address] | | LAB | | | | [address];[place] | | | | | | [address] | | | | + + + + + + | MCH | 33.1Comment: Testing | 27.0 - 34.0 pg | EXTERNAL | | | | performed at [facility];888 | | LAB | | | | [address];[place] | | | | | | [address] | | | | + + + + + + | MCHC | 34.4Comment: Testing | 32.0 - 35.5 | EXTERNAL | | | | performed at [facility];888 | g/dL | LAB | | | | [address];[place] | | | | | | [address] | | | | + + + + + + | RDW-CV | 47.7Comment: Testing | 37 - 53 fl | EXTERNAL | | | | performed at [facility];888 | | LAB | | | | [address];[place] | | | | | | [address] | | | | + + + + + + | Platelet | 143 (L)Comment: Testing | 150 - 400 K/uL | EXTERNAL | | | Count | performed at [facility];888 | | LAB | | | Plasma | [address];[place] | | | | | | [address] | | | | + + + + + + | MPV | 7.3Comment: Testing | fl | EXTERNAL | | | | performed at [facility];888 | | LAB | | | | [address];[place] | | | | | | [address] | | | | + + + + + + | Differentia | AUTOMATEDComment: | | EXTERNAL | | | l Type | Testing performed at | | LAB | | | | [facility];[address];[place] [address] | | | | + + + + + + | % Segmented | 57.41Comment: Testing | % | EXTERNAL | | | | performed at [facility];888 | | LAB | | | Neutrophils | [address];[place] | | | | | | [address] | | | | + + + + + + | % | 12.22Comment: Testing | % | EXTERNAL | | | Lymphocytes | performed at [facility];[address] | | LAB | | | | [address];[place] | | | | | | [address] | | | | + + + + + + | % Monocytes | 15.25Comment: Testing | % | EXTERNAL | | | | performed at [facility];[address] | | LAB | | | | [address];[place] | | | | | | [address] | | | | + + + + + + | % | 14.04Comment: Testing | % | EXTERNAL | | | Eosinophils | performed at [facility];[address] | | LAB | | | | [address];[place] | | | | | | [address] | | | | + + + + + + | % Basophils | 1.08Comment: Testing | % | EXTERNAL | | | | performed at [facility];[address] | | LAB | | | | [address];[place] | | | | | | [address] | | | | + + + + + + | Absolute | 3.20Comment: Testing | 1.90 - 7.40 | EXTERNAL | | | Segmented | performed at [facility];888 | K/uL | LAB | | | Neutrophils | [address];[place] | | | | | | [address] | | | | + + + + + + | Absolute | 0.68 (L)Comment: Testing | 1.00 - 3.90 | EXTERNAL | | | Lymphocytes | performed at [facility];888 | K/uL | LAB | | | | [address];[place] | | | | | | [address] | | | | + + + + + + | Absolute | 0.85 (H)Comment: Testing | 0.00 - 0.80 | EXTERNAL | | | Monocytes | performed at [facility];888 | K/uL | LAB | | | | [address];[place] | | | | | | [address] | | | | + + + + + + | Absolute | 0.78 (H)Comment: Testing | 0.00 - 0.50 | EXTERNAL | | | Eosinophils | performed at [facility];888 | K/uL | LAB | | | | [address];[place] | | | | | | [address] | | | | + + + + + + | Absolute | 0.06Comment: Testing | 0.00 - 0.10 | EXTERNAL | | | Basophils | performed at [facility];888 | K/uL | LAB | | | | [address];[place] | | | | | | [address] | | | | + + + [...] | | | | performed at [facility];888 | uIU/mL | LAB | | | | [address];[place], [place] | | | | | | [address] | | | | + + + [...] | | | | performed at [facility];888 | mmol/L | LAB | | | | [address];[place] | | | | | | [address] | | | | + + + + + + | K | 3.9Comment: Testing | 3.5 - 4.9 | EXTERNAL | | | | performed at [facility];888 | mmol/L | LAB | | | | [address];[place] | | | | | | [address] | | | | + + + + + + | Cl | 103Comment: Testing | 99 - 109 mmol/L | EXTERNAL | | | | performed at [facility];[address] | | LAB | | | | [address];[place] | | | | | | [address] | | | | + + + + + + | CO2 | 25Comment: Testing | 23 - 32 mmol/L | EXTERNAL | | | | performed at [facility];[address] | | LAB | | | | [address];[place] | | | | | | [address] | | | | + + + + + + | Anion Gap | 14Comment: Testing | 5 - 20 mmol/L | EXTERNAL | | | | performed at [facility];[address] | | LAB | | | | [address];[place] | | | | | | [address] | | | | + + + + + + | Glucose, | 81Comment: Testing | 65 - 99 mg/dL | EXTERNAL | | | Fasting | performed at [facility];[address] | | LAB | | | | [address];[place] | | | | | | [address] | | | | + + + + + + | BUN | 5 (L)Comment: Testing | 8 - 25 mg/dL | EXTERNAL | | | | performed at [facility];888 | | LAB | | | | [address];[place] | | | | | | [address] | | | | + + + + + + | Creatinine | 0.44 (L)Comment: Testing | 0.50 - 1.00 | EXTERNAL | | | | performed at [facility];888 | mg/dL | LAB | | | | [address];[place] | | | | | | [address] | | | | + + + + + + | BUN/Creatin | 10Comment: Testing | | EXTERNAL | | | ine Ratio | performed at [facility];[address] | | LAB | | | | [address];[place] | | | | | | [address] | | | | + + + + + + | Calcium | 7.4 (L)Comment: Testing | 8.5 - 10.5 | EXTERNAL | | | | performed at [facility];888 | mg/dL | LAB | | | | [address];[place] | | | | | | [address] | | | | + + + + + + | Protein, | 5.2 (L)Comment: Testing | 6.3 - 8.2 g/dL | EXTERNAL | | | Total | performed at [facility];[address] | | LAB | | | | [address];[place] | | | | | | [address] | | | | + + + + + + | Albumin | 1.5 (L)Comment: Testing | 3.6 - 5.0 g/dL | EXTERNAL | | | | performed at [facility];[address] | | LAB | | | | [address];[place] | | | | | | [address] | | | | + + + + + + | Globulin | 3.7Comment: Testing | 1.3 - 4.9 g/dL | EXTERNAL | | | | performed at [facility];888 | | LAB | | | | [address];[place] | | | | | | [address] | | | | + + + + + + | A/G Ratio | 0.4 (L)Comment: Testing | 1.0 - 2.4 | EXTERNAL | | | | performed at [facility];[address] | | LAB | | | | [address];[place] | | | | | | [address] | | | | + + + + + + | Bilirubin | 0.8Comment: Testing | 0.1 - 1.5 mg/dL | EXTERNAL | | | Total | performed at [facility];[address] | | LAB | | | | [address];[place] | | | | | | [address] | | | | + + + + + + | ALP, | 115Comment: Testing | 35 - 115 U/L | EXTERNAL | | | External | performed at [facility];[address] | | LAB | | | | [address];[place] | | | | | | [address] | | | | + + + + + + | AST | 20Comment: Testing | 10 - 45 U/L | EXTERNAL | | | | performed at [facility];888 | | LAB | | | | [address];[place] | | | | | | [address] | | | | + + + + + + | ALT | 11Comment: Testing | 10 - 65 U/L | EXTERNAL | | | | performed at [facility];[address] | | LAB | | | | [address];[place] | | | | | | [address] | | | | + + + [...] | | | | | at [facility];[address];[place] [address] | | | | + + + [...] | | | | performed at [facility];[address] | | LAB | | | | [address];[place], [place] | | | | | | [address] | | | | + + + [...] | performed at [facility], [address] | | LAB | | | | [address], | | | | | | [place] [address] | | | | + + + [...] | performed at [facility], [address] | | LAB | | | | [address], | | | | | | [place] [address] | | | | + + + [...] | | | | | [place] [address] | | | | + + + + + + | K | 3.8Comment: Testing | 3.5 - 4.9 | EXTERNAL | | | | performed at [facility], [address] | mmol/L | LAB | | | | [address], | | | | | | [place] [address] | | | | + + + + + + | Cl | 105Comment: Testing | 99 - 109 mmol/L | EXTERNAL | | | | performed at [facility], [address] | | LAB | | | | [address], | | | | | | [place] [address] | | | | + + + + + + | CO2 | 25Comment: Testing | 23 - 32 mmol/L | EXTERNAL | | | | performed at [facility], [address] | | LAB | | | | [address], | | | | | | [place] [address] | | | | + + + + + + | Anion Gap | 14Comment: Testing | 5 - 20 mmol/L | EXTERNAL | | | | performed at [facility], [address] | | LAB | | | | [address], | | | | | | [place] [address] | | | | + + + + + + | Glucose, | 94Comment: Testing | 65 - 99 mg/dL | EXTERNAL | | | Fasting | performed at [facility], [address] | | LAB | | | | [address], | | | | | | [place] [address] | | | | + + + + + + | BUN | 3 (L)Comment: Testing | 8 - 25 mg/dL | EXTERNAL | | | | performed at [facility], [address] | | LAB | | | | [address], | | | | | | [place] [address] | | | | + + + + + + | Creatinine | 0.5Comment: Testing | 0.50 - 1.00 | EXTERNAL | | | | performed at [facility], [address] | mg/dL | LAB | | | | [address], | | | | | | [place] [address] | | | | + + + + + + | BUN/Creatin | 6Comment: Testing | | EXTERNAL | | | ine Ratio | performed at [facility], [address] | | LAB | | | | [address], | | | | | | [place] [address] | | | | + + + + + + | Calcium | 8.0 (L)Comment: Testing | 8.5 - 10.5 | EXTERNAL | | | | performed at [facility], [address] | mg/dL | LAB | | | | [address], | | | | | | [place] [address] | | | | + + + + + + | Protein, | 5.7 (L)Comment: Testing | 6.3 - 8.2 g/dL | EXTERNAL | | | Total | performed at [facility], [address] | | LAB | | | [address], | | | | | | [place] [id number] | | | | + + + + + + | Albumin | 1.7 (L)Comment: Testing | 3.6 - 5.0 g/dL | EXTERNAL | | | | performed at [facility], [address] | | LAB | | | | [address], | | | | | | [place] [address] | | | | + + + + + + | Globulin | 4.0Comment: Testing | 1.3 - 4.9 g/dL | EXTERNAL | | | | performed at [facility], [address] | | LAB | | | | [address], | | | | | | [place] [id number] | | | | + + + + + + | A/G Ratio | 0.4 (L)Comment: Testing | 1.0 - 2.4 | EXTERNAL | | | | performed at [facility], [address] | | LAB | | | | [address], | | | | | | [place] [address] | | | | + + + + + + | Bilirubin | 0.6Comment: Testing | 0.1 - 1.5 mg/dL | EXTERNAL | | | Total | performed at [facility], [address] | | LAB | | | | [address], | | | | | | [place] [address] | | | | + + + + + + | ALP, | 153 (H)Comment: Testing | 35 - 115 U/L | EXTERNAL | | | External | performed at [facility], [address] | | LAB | | | | [address], | | | | | | [place] [address] | | | | + + + + + + | AST | 22Comment: Testing | 10 - 45 U/L | EXTERNAL | | | | performed at [facility], [address] | | LAB | | | | [address], | | | | | | [place] [address] | | | | + + + + + + | ALT | 13Comment: Testing | 10 - 65 U/L | EXTERNAL | | | | performed at [facility], [address] | | LAB | | | | [address], | | | | | | [place] [address] | | | | + + + [...] | | | | | [place] [address] | | | | + + + [...] | | | | performed at [facility];[address] | | LAB | | | | [address];[place], [place] | | | | | | [address] | | | | + + + [...] | | | | performed at [facility];888 | K/uL | LAB | | | | [address];[place] | | | | | | [address] | | | | + + + + + + | Non- | 2.50 (L)Comment: Testing | 3.70 - 5.10 | EXTERNAL | | | Red Blood | performed at [facility];888 | M/uL | LAB | | | Cells | [address];[place] | | | | | Counted | [address] | | | | + + + + + + | Hemoglobin | 8.2 (L)Comment: Testing | 11.3 - 15.5 | EXTERNAL | | | | performed at [facility];888 | g/dL | LAB | | | | [address];[place] | | | | | | [address] | | | | + + + + + + | Hematocrit, | 24.1 (L)Comment: Testing | 34.0 - 46.0 % | EXTERNAL | | | POC | performed at [facility];[address] | | LAB | | | | [address];[place] | | | | | | [address] | | | | + + + + + + | MCV | 96.4Comment: Testing | 80.0 - 100.0 fl | EXTERNAL | | | | performed at [facility];[address] | | LAB | | | | [address];[place] | | | | | | [address] | | | | + + + + + + | MCH | 33.0Comment: Testing | 27.0 - 34.0 pg | EXTERNAL | | | | performed at [facility];[address] | | LAB | | | | [address];[place] | | | | | | [address] | | | | + + + + + + | MCHC | 34.2Comment: Testing | 32.0 - 35.5 | EXTERNAL | | | | performed at [facility];888 | g/dL | LAB | | | | [address];[place] | | | | | | [address] | | | | + + + + + + | RDW-CV | 47.7Comment: Testing | 37 - 53 fl | EXTERNAL | | | | performed at [facility];[address] | | LAB | | | | [address];[place] | | | | | | [address] | | | | + + + + + + | Platelet | 90 (L)Comment: Testing | 150 - 400 K/uL | EXTERNAL | | | Count | performed at [facility];[address] | | LAB | | | Plasma | [address];[place] | | | | | | [address] | | | | + + + + + + | MPV | 7.4Comment: Testing | fl | EXTERNAL | | | | performed at [facility];[address] | | LAB | | | | [address];[place] | | | | | | [address] | | | | + + + + + + | Differentia | AUTOMATEDComment: | | EXTERNAL | | | l Type | Testing performed at | | LAB | | | | [facility];[address];[place] [address] | | | | + + + + + + | % Segmented | 59.35Comment: Testing | % | EXTERNAL | | | | performed at [facility];[address] | | LAB | | | Neutrophils | [address];[place] | | | | | | [address] | | | | + + + + + + | % | 9.13Comment: Testing | % | EXTERNAL | | | Lymphocytes | performed at [facility];[address] | | LAB | | | | [address];[place] | | | | | | [address] | | | | + + + + + + | % Monocytes | 14.62Comment: Testing | % | EXTERNAL | | | | performed at [facility];[address] | | LAB | | | | [address];[place] | | | | | | [address] | | | | + + + + + + | % | 15.46Comment: Testing | % | EXTERNAL | | | Eosinophils | performed at [facility];[address] | | LAB | | | | [address];[place] | | | | | | [address] | | | | + + + + + + | % Basophils | 1.44Comment: Testing | % | EXTERNAL | | | | performed at [facility];[address] | | LAB | | | | [address];[place] | | | | | | [address] | | | | + + + + + + | Absolute | 2.53Comment: Testing | 1.90 - 7.40 | EXTERNAL | | | Segmented | performed at [facility];888 | K/uL | LAB | | | Neutrophils | [address];[place] | | | | | | [address] | | | | + + + + + + | Absolute | 0.39 (L)Comment: Testing | 1.00 - 3.90 | EXTERNAL | | | Lymphocytes | performed at [facility];[address] | K/uL | LAB | | | | [address];[place] | | | | | | [address] | | | | + + + + + + | Absolute | 0.62Comment: Testing | 0.00 - 0.80 | EXTERNAL | | | Monocytes | performed at [facility];[address] | K/uL | LAB | | | | [address];[place] | | | | | | [address] | | | | + + + + + + | Absolute | 0.66 (H)Comment: Testing | 0.00 - 0.50 | EXTERNAL | | | Eosinophils | performed at [facility];[address] | K/uL | LAB | | | | [address];[place] | | | | | | [address] | | | | + + + + + + | Absolute | 0.06Comment: Testing | 0.00 - 0.10 | EXTERNAL | | | Basophils | performed at [facility];[address] | K/uL | LAB | | | | [address];[place], [place] | | | | | | [address] | | | | + + + [...] | | | | performed at [facility] | | LAB | | | | [facility];[place], [place] | | | | | | [address] | | | | + + + [...] | | | | performed at [facility];[address] | | LAB | | | | [address];[place] | | | | | | [address] | | | | + + + [...] | | | | performed at [facility];888 | mmol/L | LAB | | | | [address];[place] | | | | | | [address] | | | | + + + + + + | K | 3.6Comment: Testing | 3.5 - 4.9 | EXTERNAL | | | | performed at [facility];888 | mmol/L | LAB | | | | [address];[place] | | | | | | [address] | | | | + + + + + + | Cl | 105Comment: Testing | 99 - 109 mmol/L | EXTERNAL | | | | performed at [facility];[address] | | LAB | | | | [address];[place] | | | | | | [address] | | | | + + + + + + | CO2 | 22 (L)Comment: Testing | 23 - 32 mmol/L | EXTERNAL | | | | performed at [facility];[address] | | LAB | | | | [address];[place] | | | | | | [address] | | | | + + + + + + | Anion Gap | 15Comment: Testing | 5 - 20 mmol/L | EXTERNAL | | | | performed at [facility];[address] | | LAB | | | | [address];[place] | | | | | | [address] | | | | + + + + + + | Glucose, | 89Comment: Testing | 65 - 99 mg/dL | EXTERNAL | | | Fasting | performed at [facility];[address] | | LAB | | | | [address];[place] | | | | | | [address] | | | | + + + + + + | BUN | 3 (L)Comment: Testing | 8 - 25 mg/dL | EXTERNAL | | | | performed at [facility];[address] | | LAB | | | | [address];[place] | | | | | | [address] | | | | + + + + + + | Creatinine | 0.43 (L)Comment: Testing | 0.50 - 1.00 | EXTERNAL | | | | performed at [facility];888 | mg/dL | LAB | | | | [address];[place] | | | | | | [address] | | | | + + + + + + | BUN/Creatin | 8Comment: Testing | | EXTERNAL | | | ine Ratio | performed at [facility];[address] | | LAB | | | | [address];[place] | | | | | | [address] | | | | + + + + + + | Calcium | 7.2 (L)Comment: Testing | 8.5 - 10.5 | EXTERNAL | | | | performed at [facility];888 | mg/dL | LAB | | | | [address];[place] | | | | | | [address] | | | | + + + + + + | Protein, | 5.3 (L)Comment: Testing | 6.3 - 8.2 g/dL | EXTERNAL | | | Total | performed at [facility];[address] | | LAB | | | | [address];[place] | | | | | | [address] | | | | + + + + + + | Albumin | 1.6 (L)Comment: Testing | 3.6 - 5.0 g/dL | EXTERNAL | | | | performed at [facility];[address] | | LAB | | | | [address];[place] | | | | | | [address] | | | | + + + + + + | Globulin | 3.6Comment: Testing | 1.3 - 4.9 g/dL | EXTERNAL | | | | performed at [facility];[address] | | LAB | | | | [address];[place] | | | | | | [address] | | | | + + + + + + | A/G Ratio | 0.5 (L)Comment: Testing | 1.0 - 2.4 | EXTERNAL | | | | performed at [facility];[address] | | LAB | | | | [address];[place] | | | | | | [address] | | | | + + + + + + | Bilirubin | 1.3Comment: Testing | 0.1 - 1.5 mg/dL | EXTERNAL | | | Total | performed at [facility];[address] | | LAB | | | | [address];[place] | | | | | | [address] | | | | + + + + + + | ALP, | 123 (H)Comment: Testing | 35 - 115 U/L | EXTERNAL | | | External | performed at [facility];[address] | | LAB | | | | [address];[place] | | | | | | [address] | | | | + + + + + + | AST | 24Comment: Testing | 10 - 45 U/L | EXTERNAL | | | | performed at [facility];[address] | | LAB | | | | [address];[place] | | | | | | [address] | | | | + + + + + + | ALT | 12Comment: Testing | 10 - 65 U/L | EXTERNAL | | | | performed at [facility];[address] | | LAB | | | | [address];[place], [place] | | | | | | [address] | | | | + + + [...] | | | | | at [facility];[address];[place] [address] | | | | + + + [...] | | | | performed at [facility];888 | mmol/L | LAB | | | | [address];[place] | | | | | | [address] | | | | + + + [...] | | | | performed at [facility];[address] | | LAB | | | | [address];[place], [place] | | | | | | [address] [...] | | | | performed at [facility];[address] | | LAB | | | | [address];[place], [place] | | | | | | [address] | | | | + + + [...] | | | | performed at [facility];[address] | | LAB | | | | [address];[place], [place] | | | | | | [address] | | | | + + + [...] | | | Patient | performed at [facility];[address] | | LAB | | | | [address];[place] | | | | | | [address] | | | | + + + [...] | | | | performed at [facility] | | | | | | [facility];[place], [place] | | | | | | [address] | | | | + + + [...] | | | | | [place] [address] | | | | + + + + + + | Non- | 2.59 (L)Comment: Testing | 3.70 - 5.10 | EXTERNAL | | | Red Blood | performed at [facility], [address] | M/uL | LAB | | | Cells | [address], | | | | | Counted | [place] [address] | | | | + + + + + + | Hemoglobin | 8.6 (L)Comment: Testing | 11.3 - 15.5 | EXTERNAL | | | | performed at [facility], [address] | g/dL | LAB | | | | [address], | | | | | | [place] [address] | | | | + + + + + + | Hematocrit, | 25.3 (L)Comment: Testing | 34.0 - 46.0 % | EXTERNAL | | | POC | performed at [facility], [address] | | LAB | | | | [address], | | | | | | [place] [address] | | | | + + + + + + | MCV | 97.7Comment: Testing | 80.0 - 100.0 fl | EXTERNAL | | | | performed at [facility], [address] | | LAB | | | | [address], | | | | | | [place] [address] | | | | + + + + + + | MCH | 33.0Comment: Testing | 27.0 - 34.0 pg | EXTERNAL | | | | performed at [facility], [address] | | LAB | | | | [address], | | | | | | [place] [address] | | | | + + + + + + | MCHC | 33.8Comment: Testing | 32.0 - 35.5 | EXTERNAL | | | | performed at [facility], [address] | g/dL | LAB | | | | [address], | | | | | | [place] [address] | | | | + + + + + + | RDW-CV | 47.7Comment: Testing | 37 - 53 fl | EXTERNAL | | | | performed at [facility], [address] | | LAB | | | | [address], | | | | | | [place] [address] | | | | + + + + + + | Platelet | 118 (L)Comment: Testing | 150 - 400 K/uL | EXTERNAL | | | Count | performed at [facility], [address] | | LAB | | | Plasma | [address], | | | | | | [place] [address] | | | | + + + + + + | MPV | 7.1Comment: Testing | fl | EXTERNAL | | | | performed at [facility], [address] | | LAB | | | | [address], | | | | | | [place] [address] | | | | + + + + + + | Differentia | AUTOMATEDComment: | | EXTERNAL | | | l Type | Testing performed at | | LAB | | | | [facility], [address] | | | | | | [place] | | | | | | [address] | | | | + + + + + + | % Segmented | 53.97Comment: Testing | % | EXTERNAL | | | | performed at [facility], [address] | | LAB | | | Neutrophils | [address], | | | | | | [place] [address] | | | | + + + + + + | % | 11.10Comment: Testing | % | EXTERNAL | | | Lymphocytes | performed at [facility], [address] | | LAB | | | | [address], | | | | | | [place] [address] | | | | + + + + + + | % Monocytes | 15.59Comment: Testing | % | EXTERNAL | | | | performed at [facility], [address] | | LAB | | | | [address], | | | | | | [place] [address] | | | | + + + + + + | % | 18.27Comment: Testing | % | EXTERNAL | | | Eosinophils | performed at [facility], [address] | | LAB | | | | [address], | | | | | | [place] [address] | | | | + + + + + + | % Basophils | 1.07Comment: Testing | % | EXTERNAL | | | | performed at [facility], [address] | | LAB | | | | [address], | | | | | | [place] [address] | | | | + + + + + + | Absolute | 2.33Comment: Testing | 1.90 - 7.40 | EXTERNAL | | | Segmented | performed at [facility], [address] | K/uL | LAB | | | Neutrophils | [address], | | | | | | [place] [address] | | | | + + + + + + | Absolute | 0.48 (L)Comment: Testing | 1.00 - 3.90 | EXTERNAL | | | Lymphocytes | performed at [facility], [address] | K/uL | LAB | | | | [address], | | | | | | [place] [address] | | | | + + + + + + | Absolute | 0.67Comment: Testing | 0.00 - 0.80 | EXTERNAL | | | Monocytes | performed at [facility], [address] | K/uL | LAB | | | | [address], | | | | | | [place], [place] [address] | | | | + + + + + + | Absolute | 0.79 (H)Comment: Testing | 0.00 - 0.50 | EXTERNAL | | | Eosinophils | performed at [facility], [address] | K/uL | LAB | | | | [address], | | | | | | [place], [place] [address] | | | | + + + + + + | Absolute | 0.05Comment: Testing | 0.00 - 0.10 | EXTERNAL | | | Basophils | performed at [facility], [address] | K/uL | LAB | | | | [address], | | | | | | [place], [place] [address] | | | | + + + [...] | performed at [facility], [address] | | LAB | | | | [address], | | | | | | [place] [phone] | | | | + + + [...] | performed at [facility], [address] | | LAB | | | | [address], | | | | | | [place] [address] | | | | + + + [...] | | | Alcohol | performed at [facility];[address] | | LAB | | | | [address] [facility];[place], [place] | | | | | | [address] | | | | + + + [...] | | | | | [place] [address] | | | | + + + + + + | K | 3.3 (L)Comment: Testing | 3.5 - 4.9 | EXTERNAL | | | | performed at [facility], [address] | mmol/L | LAB | | | | [address], | | | | | | [place] [address] | | | | + + + + + + | Cl | 102Comment: Testing | 99 - 109 mmol/L | EXTERNAL | | | | performed at [facility], [address] | | LAB | | | | [address], | | | | | | [place] [address] | | | | + + + + + + | CO2 | 23Comment: Testing | 23 - 32 mmol/L | EXTERNAL | | | | performed at [facility], [address] | | LAB | | | | [address], | | | | | | [place] [address] | | | | + + + + + + | Anion Gap | 13Comment: Testing | 5 - 20 mmol/L | EXTERNAL | | | | performed at [facility], [address] | | LAB | | | | [address], | | | | | | [place] [address] | | | | + + + + + + | Glucose, | 88Comment: Testing | 65 - 99 mg/dL | EXTERNAL | | | Fasting | performed at [facility], [address] | | LAB | | | | [address], | | | | | | [place] [address] | | | | + + + + + + | BUN | 4 (L)Comment: Testing | 8 - 25 mg/dL | EXTERNAL | | | | performed at [facility], [address] | | LAB | | | | [address], | | | | | | [place] [id number] | | | | + + + + + + | Creatinine | 0.4 (L)Comment: Testing | 0.50 - 1.00 | EXTERNAL | | | | performed at [facility], [address] | mg/dL | LAB | | | | [address], | | | | | | [place] [address] | | | | + + + + + + | BUN/Creatin | 10Comment: Testing | | EXTERNAL | | | ine Ratio | performed at [facility], [address] | | LAB | | | | [address], | | | | | | [place] [address] | | | | + + + + + + | Calcium | 7.7 (L)Comment: Testing | 8.5 - 10.5 | EXTERNAL | | | | performed at [facility], [address] | mg/dL | LAB | | | | [address], | | | | | | [place] [address] | | | | + + + + + + | Protein, | 5.7 (L)Comment: Testing | 6.3 - 8.2 g/dL | EXTERNAL | | | Total | performed at [facility], [address] | | LAB | | | | [address], | | | | | | [place] [address] | | | | + + + + + + | Albumin | 1.7 (L)Comment: Testing | 3.6 - 5.0 g/dL | EXTERNAL | | | | performed at [facility], [address] | | LAB | | | | [address], | | | | | | [place] [address] | | | | + + + + + + | Globulin | 4.0Comment: Testing | 1.3 - 4.9 g/dL | EXTERNAL | | | | performed at [facility], [address] | | LAB | | | | [address], | | | | | | [place] [address] | | | | + + + + + + | A/G Ratio | 0.4 (L)Comment: Testing | 1.0 - 2.4 | EXTERNAL | | | | performed at [facility], [address] | | LAB | | | | [address], | | | | | | [place] [address] | | | | + + + + + + | Bilirubin | 0.8Comment: Testing | 0.1 - 1.5 mg/dL | EXTERNAL | | | Total | performed at [facility], [address] | | LAB | | | | [address], | | | | | | [place] [address] | | | | + + + + + + | ALP, | 162 (H)Comment: Testing | 35 - 115 U/L | EXTERNAL | | | External | performed at [facility], [address] | | LAB | | | | [address], | | | | | | [place] [address] | | | | + + + + + + | AST | 29Comment: Testing | 10 - 45 U/L | EXTERNAL | | | | performed at [facility], [address] | | LAB | | | | [address], | | | | | | [place] [address] | | | | + + + + + + | ALT | 13Comment: Testing | 10 - 65 U/L | EXTERNAL | | | | performed at [facility], [address] | | LAB | | | | [address] [facility], | | | | | | [place] [id number] | | | | + + + [...] W | | | | | | [facility], | | | | | | [place] [id number] | | | | + + + [...] | | | | performed at [facility] | | LAB | | | | [address];[place] | | | | | | [address] | | | | + + + + + + | Clarity, | CLEARComment: Testing | | EXTERNAL | | | Urine | performed at [facility];[address] | | LAB | | | | [address];[place] | | | | | | [address] | | | | + + + + + + | Specific | 1.003Comment: Testing | 1.002 - 1.030 | EXTERNAL | | | [place], | performed at [facility];[address] | | LAB | | | Urine | [address];[place] | | | | | | [address] | | | | + + + + + + | Leukocyte | NEGATIVEComment: Testing | | EXTERNAL | | | Esterase, | performed at [facility];[address] | | LAB | | | Urine | [address];[place] | | | | | | [address] | | | | + + + + + + | Nitrite, | NEGATIVEComment: Testing | | EXTERNAL | | | Urine | performed at [facility];[address] | | LAB | | | | [address];[place] | | | | | | [address] | | | | + + + + + + | Urobilinoge | NORMALComment: Testing | mg/dL | EXTERNAL | | | n, Urine | performed at [facility];[address] | | LAB | | | | [address];[place] | | | | | | [address] | | | | + + + + + + | Protein, | NEGATIVEComment: Testing | mg/dL | EXTERNAL | | | Urine | performed at [facility];[address] | | LAB | | | | [address];[place] | | | | | | [address] | | | | + + + + + + | pH, Urine | 6.0Comment: Testing | 5.0 - 8.0 | EXTERNAL | | | | performed at [facility];[address] | | LAB | | | | [address];[place] | | | | | | [address] | | | | + + + + + + | Blood, | SMALL (A)Comment: | | EXTERNAL | | | Urine | Testing performed at | | LAB | | | | [facility];[address];[place] [address] | | | | + + + + + + | Ketones | NEGATIVEComment: Testing | mg/dL | EXTERNAL | | | | performed at [facility];[address] | | LAB | | | | [address];[place] | | | | | | [address] | | | | + + + + + + | Bilirubin, | NEGATIVEComment: Testing | | EXTERNAL | | | Urine | performed at [facility];[address] | | LAB | | | | [address];[place] | | | | | | [address] | | | | + + + + + + | Glucose, | NEGATIVEComment: Testing | mg/dL | EXTERNAL | | | Urine | performed at [facility];[address] | | LAB | | | | [address];[place] | | | | | | [address] | | | | + + + + + + | WBC, UA | 0-2Comment: Testing | 0 - 5 /hpf | EXTERNAL | | | | performed at [facility];[address] | | LAB | | | | [address];[place] | | | | | | [address] | | | | + + + + + + | RBC, UA | 3-5Comment: Testing | 0 - 5 /hpf | EXTERNAL | | | | performed at [facility];[address] | | LAB | | | | [address];[place] | | | | | | [address] | | | | + + + + + + | Bacteria, | NONE SEENComment: | | EXTERNAL | | | UA | Testing performed at | | LAB | | | | [facility];[address] | | | | | | [address];[place] [address] | | | | + + + + + + | Epithelial | 11-15Comment: Testing | /lpf | EXTERNAL | | | Cells | performed at [facility];[address] | | LAB | | | | [address];[place] | | | | | | [address] | | | | + + + + + + | Mucus, | 1+Comment: Testing | | EXTERNAL | | | Urine | performed at [facility];[address] | | LAB | | | | [address];[place] | | | | | | [address] | | | | + + + [...] EXTERNAL LAB | | Testing performed at [facility] [address] COLOR | | | STRAW Testing performed | | | at [facility] [address];[place] [address] APPEARANCE | | | HAZY Testing performed at [facility] [address] | | [address];[place] [address] RBC'S | | | 48 Testing performed at [facility] [address] | | | [address];[place] [address] TOTAL NUCLEATED CELLS 10 | | | Testing performed at [facility] [address];[place] [address] | | | NEUTROPHILS 30 | | | Testing performed at [facility] [address];[place] [address] LYMPHOCYTES | | | 9 Testing performed | | | at [facility] [address];[place] [address] MONOCYTES/MACROPHAGES | | | 52 Testing performed at [facility] [address] | | [address];[place] [address] Mesothelial Cells 9 | | | Testing performed at [facility] [address];[place], [place] | | | [address] CELLS COUNTED 100 | | | Testing performed at [facility];[address] [place] [address];[place] [address] | | + + + + +---------+ [...] | EXTERNAL LAB | | not a hydraulic miner validated sample type for this method. No reference | | | ranges have been established. Testing performed at [facility], [address] | | | [place] [address] | | + + + + +---------+ [...] | EXTERNAL LAB | | not a hydraulic miner validated sample type for this method. No reference | | | ranges have been established. Testing performed at [facility], [address] | | | [place] [address] FLUID TP SOURCE | | | ASCT Testing performed at [facility];[address] | | | [facility];[place] [address] | | + + + + +---------+ [...] EXTERNAL LAB | | is not a hydraulic miner validated sample type for this method. No | | | reference ranges have been established. Testing performed at [facility], | | | [address] [place] [address] | | + + + + +---------+ [...] | EXTERNAL LAB | | not a hydraulic miner validated sample type for this method. No | | | reference ranges have been established. Testing performed at [facility], | | | [address] [facility], [place] [address] Glucose, Fluid Type | | | ASCT Testing performed at [facility];[address] | | | [facility];[place] [address] | | + + + + +---------+ [...] | ON PH STRIP Testing performed at [facility];[address] [place] [address];[place] [address] | | + + + + +---------+ [...] | | | Alcohol | performed at [facility];[address] | | LAB | | | | [address];[place], [place] | | | | | | [address] | | | | + + + [...] | | | Patient | performed at [facility];[address] | | LAB | | | | [address];[place] | | | | | | [address] | | | | + + + [...] | | | | performed at [facility];[address] | | | | | | [facility];[place], [place] | | | | | | [address] | | | | + + + [...] | | | | performed at [facility];[address] | K/uL | LAB | | | | [address];[place] | | | | | | [address] | | | | + + + + + + | Non- | 2.79 (L)Comment: Testing | 3.70 - 5.10 | EXTERNAL | | | Red Blood | performed at [facility];[address] | M/uL | LAB | | | Cells | [address];[place] | | | | | Counted | [address] | | | | + + + + + + | Hemoglobin | 9.2 (L)Comment: Testing | 11.3 - 15.5 | EXTERNAL | | | | performed at [facility];[address] | g/dL | LAB | | | | [address];[place] | | | | | | [address] | | | | + + + + + + | Hematocrit, | 27.1 (L)Comment: Testing | 34.0 - 46.0 % | EXTERNAL | | | POC | performed at [facility];[address] | | LAB | | | | [address];[place] | | | | | | [address] | | | | + + + + + + | MCV | 97.1Comment: Testing | 80.0 - 100.0 fl | EXTERNAL | | | | performed at [facility];[address] | | LAB | | | | [address];[place] | | | | | | [address] | | | | + + + + + + | MCH | 32.9Comment: Testing | 27.0 - 34.0 pg | EXTERNAL | | | | performed at [facility];[address] | | LAB | | | | [address];[place] | | | | | | [address] | | | | + + + + + + | MCHC | 33.9Comment: Testing | 32.0 - 35.5 | EXTERNAL | | | | performed at [facility];[address] | g/dL | LAB | | | | [address];[place] | | | | | | [address] | | | | + + + + + + | RDW-CV | 47.3Comment: Testing | 37 - 53 fl | EXTERNAL | | | | performed at [facility];[address] | | LAB | | | | [address];[place] | | | | | | [address] | | | | + + + + + + | Platelet | 155Comment: Testing | 150 - 400 K/uL | EXTERNAL | | | Count | performed at [facility];[address] | | LAB | | | Plasma | [address];[place] | | | | | | [address] | | | | + + + + + + | MPV | 7.1Comment: Testing | fl | EXTERNAL | | | | performed at [facility];[address] | | LAB | | | | [address];[place] | | | | | | [address] | | | | + + + + + + | Differentia | AUTOMATEDComment: | | EXTERNAL | | | l Type | Testing performed at | | LAB | | | | [facility];[address];[place] [address] | | | | + + + + + + | % Segmented | 54.16Comment: Testing | % | EXTERNAL | | | | performed at [facility];[address] | | LAB | | | Neutrophils | [address];[place] | | | | | | [address] | | | | + + + + + + | % | 12.84Comment: Testing | % | EXTERNAL | | | Lymphocytes | performed at [facility];[address] | | LAB | | | | [address];[place] | | | | | | [address] | | | | + + + + + + | % Monocytes | 16.65Comment: Testing | % | EXTERNAL | | | | performed at [facility];[address] | | LAB | | | | [address];[place] | | | | | | [address] | | | | + + + + + + | % | 15.14Comment: Testing | % | EXTERNAL | | | Eosinophils | performed at [facility];[address] | | LAB | | | | [address];[place] | | | | | | [address] | | | | + + + + + + | % Basophils | 1.21Comment: Testing | % | EXTERNAL | | | | performed at [facility];[address] | | LAB | | | | [address];[place] | | | | | | [address] | | | | + + + + + + | Absolute | 3.17Comment: Testing | 1.90 - 7.40 | EXTERNAL | | | Segmented | performed at [facility];[address] | K/uL | LAB | | | Neutrophils | [address];[place] | | | | | | [address] | | | | + + + + + + | Absolute | 0.75 (L)Comment: Testing | 1.00 - 3.90 | EXTERNAL | | | Lymphocytes | performed at [facility];[address] | K/uL | LAB | | | | [address];[place] | | | | | | [address] | | | | + + + + + + | Absolute | 0.97 (H)Comment: Testing | 0.00 - 0.80 | EXTERNAL | | | Monocytes | performed at [facility];[address] | K/uL | LAB | | | | [address];[place] | | | | | | [address] | | | | + + + + + + | Absolute | 0.89 (H)Comment: Testing | 0.00 - 0.50 | EXTERNAL | | | Eosinophils | performed at [facility];[address] | K/uL | LAB | | | | [address];[place] | | | | | | [address] | | | | + + + + + + | Absolute | 0.07Comment: Testing | 0.00 - 0.10 | EXTERNAL | | | Basophils | performed at [facility];[address] | K/uL | LAB | | | | [address];[place] | | | | | | [address] | | | | + + + [...] | | | | performed at [facility];[address] | | LAB | | | | [address];[place] | | | | | | [address] | | | | + + + [...] | | | | performed at [facility];[address] | | LAB | | | | [address];[place], [place] | | | | | | [address] | | | | + + + [...] | | | | performed at [facility] | | LAB | | | | [address];[place] | | | | | | [address] | | | | + + + [...] | | | | performed at [facility];[address] | mmol/L | LAB | | | | [address];[place] | | | | | | [address] | | | | + + + + + + | K | 3.6Comment: Testing | 3.5 - 4.9 | EXTERNAL | | | | performed at [facility];[address] | mmol/L | LAB | | | | [address];[place] | | | | | | [address] | | | | + + + + + + | Cl | 97 (L)Comment: Testing | 99 - 109 mmol/L | EXTERNAL | | | | performed at [facility];[address] | | LAB | | | | [address];[place] | | | | | | [address] | | | | + + + + + + | CO2 | 21 (L)Comment: Testing | 23 - 32 mmol/L | EXTERNAL | | | | performed at [facility];[address] | | LAB | | | | [address];[place] | | | | | | [address] | | | | + + + + + + | Anion Gap | 16Comment: Testing | 5 - 20 mmol/L | EXTERNAL | | | | performed at [facility];[address] | | LAB | | | | [address];[place] | | | | | | [address] | | | | + + + + + + | Glucose, | 98Comment: Testing | 65 - 99 mg/dL | EXTERNAL | | | Fasting | performed at [facility];[address] | | LAB | | | | [address];[place] | | | | | | [address] | | | | + + + + + + | BUN | 5 (L)Comment: Testing | 8 - 25 mg/dL | EXTERNAL | | | | performed at [facility];[address] | | LAB | | | | [address];[place] | | | | | | [address] | | | | + + + + + + | Creatinine | 0.41 (L)Comment: Testing | 0.50 - 1.00 | EXTERNAL | | | | performed at [facility];888 | mg/dL | LAB | | | | [address];[place] | | | | | | [phone] | | | | + + + + + + | BUN/Creatin | 12Comment: Testing | | EXTERNAL | | | ine Ratio | performed at [facility];888 | | LAB | | | | [address];[place] | | | | | | [address] | | | | + + + + + + | Calcium | 6.9 (L)Comment: Testing | 8.5 - 10.5 | EXTERNAL | | | | performed at [facility];888 | mg/dL | LAB | | | | [address];[place] | | | | | | [phone] | | | | + + + + + + | Protein, | 5.8 (L)Comment: Testing | 6.3 - 8.2 g/dL | EXTERNAL | | | Total | performed at [facility];[address] | | LAB | | | | [address];[place] | | | | | | [address] | | | | + + + + + + | Albumin | 1.3 (L)Comment: Testing | 3.6 - 5.0 g/dL | EXTERNAL | | | | performed at [facility];[address] | | LAB | | | | [address];[place] | | | | | | [address] | | | | + + + + + + | Globulin | 4.5Comment: Testing | 1.3 - 4.9 g/dL | EXTERNAL | | | | performed at [facility];888 | | LAB | | | | [address];[place] | | | | | | [address] | | | | + + + + + + | A/G Ratio | 0.3 (L)Comment: Testing | 1.0 - 2.4 | EXTERNAL | | | | performed at [facility];888 | | LAB | | | | [address];[place] | | | | | | [address] | | | | + + + + + + | Bilirubin | 0.9Comment: Testing | 0.1 - 1.5 mg/dL | EXTERNAL | | | Total | performed at [facility];888 | | LAB | | | | [address];[place] | | | | | | [address] | | | | + + + + + + | ALP, | 179 (H)Comment: Testing | 35 - 115 U/L | EXTERNAL | | | External | performed at [facility];[address] | | LAB | | | | [address];[place] | | | | | | [address] | | | | + + + + + + | AST | 37Comment: Testing | 10 - 45 U/L | EXTERNAL | | | | performed at [facility];[address] | | LAB | | | | [address];[place] | | | | | | [phone] | | | | + + + + + + | ALT | 16Comment: Testing | 10 - 65 U/L | EXTERNAL | | | | performed at [facility];[address] | | [address] | | | | [address];[place] | | | | | | [id number] | | | | + + + [...] | | | | | at [facility];[address];[place] [address] | | | | + + + [...] | | | | performed at [facility];[address] | | LAB | | | | [address];[place], [place] | | | | | | [address] | | | | + + + [...]
--- OUTSIDE RECORDS SUMMARY | ~2020-01-12 | XMS | Encounter Summary ---
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 EXTERNAL | | | | performed at [facility];888 | mg/dL | LAB | | | | [address];[place] | | | | | | [address] | | | | + + + + + + | BUN/Creatin | 16Comment: Testing | | EXTERNAL | | | ine Ratio | performed at [facility];[address] | | LAB | | | | [address];[place] | | | | | | [address] | | | | + + + + + + | Calcium | 7.1 (L)Comment: Testing | 8.5 - 10.5 | EXTERNAL | | | | performed at [facility];888 | mg/dL | LAB | | | | [address];[place] | | | | | | [address] | | | | + + + [...] | | | | | | at [facility];[address] | | | | | | [address];[place] [address] | | | | + + + [...] LAB | | | | performed at [facility];[address] | | | | | | [address];[place], [place] | | | | | | [address] | | | | + + + [...] LAB | | | | performed at [facility];[address] | | | | | | [address];[place] | | | | | | [address] | | | | + + + [...] EXTERNAL | | | | performed at [facility];888 | mmol/L | LAB | | | | [address];[place] | | | | | | [address] | | | | + + + + + + | K | 5.6 (H)Comment: MODERATE | 3.5 - 4.9 | EXTERNAL | | | | HEMOLYSISTesting | mmol/L | LAB | | | | performed at [facility];[address] | | | | | | [address];[place] | | | | | | [address] | | | | + + + + + + | Cl | 102Comment: Testing | 99 - 109 mmol/L | EXTERNAL | | | | performed at [facility];[address] | | LAB | | | | [address];[place] | | | | | | [address] | | | | + + + + + + | CO2 | 24Comment: Testing | 23 - 32 mmol/L | EXTERNAL | | | | performed at [facility];[address] | | LAB | | | | [address];[place] | | | | | | [address] | | | | + + + + + + | Anion Gap | 16Comment: Testing | 5 - 20 mmol/L | EXTERNAL | | | | performed at [facility];[address] | | LAB | | | | [address];[place] | | | | | | [address] | | | | + + + + + + | Glucose, | 79Comment: Testing | 65 - 99 mg/dL | EXTERNAL | | | Fasting | performed at [facility];[address] | | LAB | | | | [address];[place] | | | | | | [address] | | | | + + + + + + | BUN | 7 (L)Comment: Testing | 8 - 25 mg/dL | EXTERNAL | | | | performed at [facility];[address] | | LAB | | | | [address];[place] | | | | | | [address] | | | | + + + + + + | Creatinine | 0.58Comment: Testing | 0.50 - 1.00 | EXTERNAL | | | | performed at [facility];888 | mg/dL | LAB | | | | [address];[place] | | | | | | [address] | | | | + + + + + + | BUN/Creatin | 12Comment: Testing | | EXTERNAL | | | ine Ratio | performed at [facility];888 | | LAB | | | | [address];[place] | | | | | | [address] | | | | + + + + + + | Calcium | 7.4 (L)Comment: Testing | 8.5 - 10.5 | EXTERNAL | | | | performed at [facility];888 | mg/dL | LAB | | | | [address];[place] | | | | | | [address] | | | | + + + [...] | | | | | | at [facility];[address] | | | | | | [address];[place] [address] | | | | + + + [...] | | | | | | [address], [place] | | | | | | [address] | | | | + + + [...] EXTERNAL | | | | performed at [facility];888 | K/uL | LAB | | | | [address];[place] | | | | | | [address] | | | | + + + + + + | Non- | 2.72 (L)Comment: Testing | 3.70 - 5.10 | EXTERNAL | | | Red Blood | performed at [facility];888 | M/uL | LAB | | | Cells | [address];[place] | | | | | Counted | [address] | | | | + + + + + + | Hemoglobin | 9.0 (L)Comment: Testing | 11.3 - 15.5 | EXTERNAL | | | | performed at [facility];888 | g/dL | LAB | | | | [address];[place] | | | | | | [address] | | | | + + + + + + | Hematocrit, | 26.2 (L)Comment: Testing | 34.0 - 46.0 % | EXTERNAL | | | POC | performed at [facility];888 | | LAB | | | | [address];[place] | | | | | | [address] | | | | + + + + + + | MCV | 96.3Comment: Testing | 80.0 - 100.0 fl | EXTERNAL | | | | performed at [facility];[address] | | LAB | | | | [address];[place] | | | | | | [address] | | | | + + + + + + | MCH | 33.1Comment: Testing | 27.0 - 34.0 pg | EXTERNAL | | | | performed at [facility];[address] | | LAB | | | | [address];[place] | | | | | | [address] | | | | + + + + + + | MCHC | 34.4Comment: Testing | 32.0 - 35.5 | EXTERNAL | | | | performed at [facility];888 | g/dL | LAB | | | | [address];[place] | | | | | | [address] | | | | + + + + + + | RDW-CV | 47.7Comment: Testing | 37 - 53 fl | EXTERNAL | | | | performed at [facility];[address] | | LAB | | | | [address];[place] | | | | | | [address] | | | | + + + + + + | Platelet | 143 (L)Comment: Testing | 150 - 400 K/uL | EXTERNAL | | | Count | performed at [facility];888 | | LAB | | | Plasma | [address];[place] | | | | | | [address] | | | | + + + + + + | MPV | 7.3Comment: Testing | fl | EXTERNAL | | | | performed at [facility];[address] | | LAB | | | | [address];[place] | | | | | | [address] | | | | + + + + + + | Differentia | AUTOMATEDComment: | | EXTERNAL | | | l Type | Testing performed at | | LAB | | | | [facility];[address];[place] [address] | | | | + + + + + + | % Segmented | 57.41Comment: Testing | % | EXTERNAL | | | | performed at [facility];888 | | LAB | | | Neutrophils | [address];[place] | | | | | | [address] | | | | + + + + + + | % | 12.22Comment: Testing | % | EXTERNAL | | | Lymphocytes | performed at [facility];[address] | | LAB | | | | [address];[place] | | | | | | [address] | | | | + + + + + + | % Monocytes | 15.25Comment: Testing | % | EXTERNAL | | | | performed at [facility];[address] | | LAB | | | | [address];[place] | | | | | | [address] | | | | + + + + + + | % | 14.04Comment: Testing | % | EXTERNAL | | | Eosinophils | performed at [facility];[address] | | LAB | | | | [address];[place] | | | | | | [address] | | | | + + + + + + | % Basophils | 1.08Comment: Testing | % | EXTERNAL | | | | performed at [facility];[address] | | LAB | | | | [address];[place] | | | | | | [address] | | | | + + + + + + | Absolute | 3.20Comment: Testing | 1.90 - 7.40 | EXTERNAL | | | Segmented | performed at [facility];888 | K/uL | LAB | | | Neutrophils | [address];[place] | | | | | | [address] | | | | + + + + + + | Absolute | 0.68 (L)Comment: Testing | 1.00 - 3.90 | EXTERNAL | | | Lymphocytes | performed at [facility];888 | K/uL | LAB | | | | [address];[place] | | | | | | [address] | | | | + + + + + + | Absolute | 0.85 (H)Comment: Testing | 0.00 - 0.80 | EXTERNAL | | | Monocytes | performed at [facility];888 | K/uL | LAB | | | | [address];[place] | | | | | | [address] | | | | + + + + + + | Absolute | 0.78 (H)Comment: Testing | 0.00 - 0.50 | EXTERNAL | | | Eosinophils | performed at [facility];888 | K/uL | LAB | | | | [address];[place] | | | | | | [address] | | | | + + + + + + | Absolute | 0.06Comment: Testing | 0.00 - 0.10 | EXTERNAL | | | Basophils | performed at [facility];888 | K/uL | LAB | | | | [address];[place] | | | | | | [address] | | | | + + + [...] EXTERNAL | | | | performed at [facility];888 | uIU/mL | LAB | | | | [address];[place], [place] | | | | | | [address] | | | | + + + [...] EXTERNAL | | | | performed at [facility];888 | mmol/L | LAB | | | | [address];[place] | | | | | | [address] | | | | + + + + + + | K | 3.9Comment: Testing | 3.5 - 4.9 | EXTERNAL | | | | performed at [facility];888 | mmol/L | LAB | | | | [address];[place] | | | | | | [address] | | | | + + + + + + | Cl | 103Comment: Testing | 99 - 109 mmol/L | EXTERNAL | | | | performed at [facility];[address] | | LAB | | | | [address];[place] | | | | | | [address] | | | | + + + + + + | CO2 | 25Comment: Testing | 23 - 32 mmol/L | EXTERNAL | | | | performed at [facility];[address] | | LAB | | | | [address];[place] | | | | | | [address] | | | | + + + + + + | Anion Gap | 14Comment: Testing | 5 - 20 mmol/L | EXTERNAL | | | | performed at [facility];[address] | | LAB | | | | [address];[place] | | | | | | [address] | | | | + + + + + + | Glucose, | 81Comment: Testing | 65 - 99 mg/dL | EXTERNAL | | | Fasting | performed at [facility];[address] | | LAB | | | | [address];[place] | | | | | | [address] | | | | + + + + + + | BUN | 5 (L)Comment: Testing | 8 - 25 mg/dL | EXTERNAL | | | | performed at [facility];[address] | | LAB | | | | [address];[place] | | | | | | [address] | | | | + + + + + + | Creatinine | 0.44 (L)Comment: Testing | 0.50 - 1.00 | EXTERNAL | | | | performed at [facility];888 | mg/dL | LAB | | | | [address];[place] | | | | | | [address] | | | | + + + + + + | BUN/Creatin | 10Comment: Testing | | EXTERNAL | | | ine Ratio | performed at [facility];[address] | | LAB | | | | [address];[place] | | | | | | [address] | | | | + + + + + + | Calcium | 7.4 (L)Comment: Testing | 8.5 - 10.5 | EXTERNAL | | | | performed at [facility];888 | mg/dL | LAB | | | | [address];[place] | | | | | | [address] | | | | + + + + + + | Protein, | 5.2 (L)Comment: Testing | 6.3 - 8.2 g/dL | EXTERNAL | | | Total | performed at [facility];[address] | | LAB | | | | [address];[place] | | | | | | [address] | | | | + + + + + + | Albumin | 1.5 (L)Comment: Testing | 3.6 - 5.0 g/dL | EXTERNAL | | | | performed at [facility];[address] | | LAB | | | | [address];[place] | | | | | | [address] | | | | + + + + + + | Globulin | 3.7Comment: Testing | 1.3 - 4.9 g/dL | EXTERNAL | | | | performed at [facility];[address] | | LAB | | | | [address];[place] | | | | | | [address] | | | | + + + + + + | A/G Ratio | 0.4 (L)Comment: Testing | 1.0 - 2.4 | EXTERNAL | | | | performed at [facility];[address] | | LAB | | | | [address];[place] | | | | | | [address] | | | | + + + + + + | Bilirubin | 0.8Comment: Testing | 0.1 - 1.5 mg/dL | EXTERNAL | | | Total | performed at [facility];[address] | | LAB | | | | [address];[place] | | | | | | [address] | | | | + + + + + + | ALP, | 115Comment: Testing | 35 - 115 U/L | EXTERNAL | | | External | performed at [facility];[address] | | LAB | | | | [address];[place] | | | | | | [address] | | | | + + + + + + | AST | 20Comment: Testing | 10 - 45 U/L | EXTERNAL | | | | performed at [facility];[address] | | LAB | | | | [address];[place] | | | | | | [address] | | | | + + + + + + | ALT | 11Comment: Testing | 10 - 65 U/L | EXTERNAL | | | | performed at [facility];[address] | | LAB | | | | [address];[place] | | | | | | [address] | | | | + + + [...] | | | | | | at [facility];[address];[place] [address] | | | | + + + [...] EXTERNAL | | | | performed at [facility];[address] | | LAB | | | | [address];[place], [place] | | | | | | [address] | | | | + + + [...] EXTERNAL | | | | performed at [facility], [address] | | LAB | | | | [address], | | | | | | [place] [address] | | | | + + + [...] EXTERNAL | | | | performed at [facility], [address] | | LAB | | | | [address], | | | | | | [place] [address] | | | | + + + [...] | | | | | [place] [address] | | | | + + + + + + | K | 3.8Comment: Testing | 3.5 - 4.9 | EXTERNAL | | | | performed at [facility], [address] | mmol/L | LAB | | | | [address], | | | | | | [place] [address] | | | | + + + + + + | Cl | 105Comment: Testing | 99 - 109 mmol/L | EXTERNAL | | | | performed at [facility], [address] | | LAB | | | | [address], | | | | | | [place] [address] | | | | + + + + + + | CO2 | 25Comment: Testing | 23 - 32 mmol/L | EXTERNAL | | | | performed at [facility], [address] | | LAB | | | | [address], | | | | | | [place] [address] | | | | + + + + + + | Anion Gap | 14Comment: Testing | 5 - 20 mmol/L | EXTERNAL | | | | performed at [facility], [address] | | LAB | | | | [address], | | | | | | [place] [address] | | | | + + + + + + | Glucose, | 94Comment: Testing | 65 - 99 mg/dL | EXTERNAL | | | Fasting | performed at [facility], [address] | | LAB | | | | [address], | | | | | | [place] [address] | | | | + + + + + + | BUN | 3 (L)Comment: Testing | 8 - 25 mg/dL | EXTERNAL | | | | performed at [facility], [address] | | LAB | | | | [address], | | | | | | [place] [address] | | | | + + + + + + | Creatinine | 0.5Comment: Testing | 0.50 - 1.00 | EXTERNAL | | | | performed at [facility], [address] | mg/dL | LAB | | | | [address], | | | | | | [place] [address] | | | | + + + + + + | BUN/Creatin | 6Comment: Testing | | EXTERNAL | | | ine Ratio | performed at [facility], [address] | | LAB | | | | [address], | | | | | | [place] [address] | | | | + + + + + + | Calcium | 8.0 (L)Comment: Testing | 8.5 - 10.5 | EXTERNAL | | | | performed at [facility], [address] | mg/dL | LAB | | | | [address], | | | | | | [place] [address] | | | | + + + + + + | Protein, | 5.7 (L)Comment: Testing | 6.3 - 8.2 g/dL | EXTERNAL | | | Total | performed at [facility], [address] | | LAB | | | | [address], | | | | | | [place] [address] | | | | + + + + + + | Albumin | 1.7 (L)Comment: Testing | 3.6 - 5.0 g/dL | EXTERNAL | | | | performed at [facility], [address] | | LAB | | | | [address], | | | | | | [place] [address] | | | | + + + + + + | Globulin | 4.0Comment: Testing | 1.3 - 4.9 g/dL | EXTERNAL | | | | performed at [facility], [address] | | LAB | | | | [address], | | | | | | [place] [address] | | | | + + + + + + | A/G Ratio | 0.4 (L)Comment: Testing | 1.0 - 2.4 | EXTERNAL | | | | performed at [facility], [address] | | LAB | | | | [address], | | | | | | [place] [address] | | | | + + + + + + | Bilirubin | 0.6Comment: Testing | 0.1 - 1.5 mg/dL | EXTERNAL | | | Total | performed at [facility], [address] | | LAB | | | | [address], | | | | | | [place] [address] | | | | + + + + + + | ALP, | 153 (H)Comment: Testing | 35 - 115 U/L | EXTERNAL | | | External | performed at [facility], [address] | | LAB | | | | [address], | | | | | | [place] [address] | | | | + + + + + + | AST | 22Comment: Testing | 10 - 45 U/L | EXTERNAL | | | | performed at [facility], [address] | | LAB | | | | [address], | | | | | | [place] [address] | | | | + + + + + + | ALT | 13Comment: Testing | 10 - 65 U/L | EXTERNAL | | | | performed at [facility], [address] | | LAB | | | | [address], | | | | | | [place] [address] | | | | + + + [...] | | | | | [place] [address] | | | | + + + [...] EXTERNAL | | | | performed at [facility];[address] | | LAB | | | | [address];[place], [place] | | | | | | [address] | | | | + + + [...] EXTERNAL | | | | performed at [facility];888 | K/uL | LAB | | | | [address];[place] | | | | | | [address] | | | | + + + + + + | Non- | 2.50 (L)Comment: Testing | 3.70 - 5.10 | EXTERNAL | | | Red Blood | performed at [facility];888 | M/uL | LAB | | | Cells | [address];[place] | | | | | Counted | [address] | | | | + + + + + + | Hemoglobin | 8.2 (L)Comment: Testing | 11.3 - 15.5 | EXTERNAL | | | | performed at [facility];888 | g/dL | LAB | | | | [address];[place] | | | | | | [address] | | | | + + + + + + | Hematocrit, | 24.1 (L)Comment: Testing | 34.0 - 46.0 % | EXTERNAL | | | POC | performed at [facility];[address] | | LAB | | | | [address];[place] | | | | | | [address] | | | | + + + + + + | MCV | 96.4Comment: Testing | 80.0 - 100.0 fl | EXTERNAL | | | | performed at [facility];[address] | | LAB | | | | [address];[place] | | | | | | [address] | | | | + + + + + + | MCH | 33.0Comment: Testing | 27.0 - 34.0 pg | EXTERNAL | | | | performed at [facility];[address] | | LAB | | | | [address];[place] | | | | | | [address] | | | | + + + + + + | MCHC | 34.2Comment: Testing | 32.0 - 35.5 | EXTERNAL | | | | performed at [facility];888 | g/dL | LAB | | | | [address];[place] | | | | | | [address] | | | | + + + + + + | RDW-CV | 47.7Comment: Testing | 37 - 53 fl | EXTERNAL | | | | performed at [facility];[address] | | LAB | | | | [address];[place] | | | | | | [address] | | | | + + + + + + | Platelet | 90 (L)Comment: Testing | 150 - 400 K/uL | EXTERNAL | | | Count | performed at [facility];[address] | | LAB | | | Plasma | [address];[place] | | | | | | [address] | | | | + + + + + + | MPV | 7.4Comment: Testing | fl | EXTERNAL | | | | performed at [facility];[address] | | LAB | | | | [address];[place] | | | | | | [address] | | | | + + + + + + | Differentia | AUTOMATEDComment: | | EXTERNAL | | | l Type | Testing performed at | | LAB | | | | [facility];[address] | [address];[place] [address] | | | | + + + + + + | % Segmented | 59.35Comment: Testing | % | EXTERNAL | | | | performed at [facility];[address] | | LAB | | | Neutrophils | [address];[place] | | | | | | [address] | | | | + + + + + + | % | 9.13Comment: Testing | % | EXTERNAL | | | Lymphocytes | performed at [facility];[address] | | LAB | | | | [address];[place] | | | | | | [address] | | | | + + + + + + | % Monocytes | 14.62Comment: Testing | % | EXTERNAL | | | | performed at [facility];[address] | | LAB | | | | [address];[place] | | | | | | [address] | | | | + + + + + + | % | 15.46Comment: Testing | % | EXTERNAL | | | Eosinophils | performed at [facility];[address] | | LAB | | | | [address];[place] | | | | | | [address] | | | | + + + + + + | % Basophils | 1.44Comment: Testing | % | EXTERNAL | | | | performed at [facility];[address] | | LAB | | | | [address];[place] | | | | | | [address] | | | | + + + + + + | Absolute | 2.53Comment: Testing | 1.90 - 7.40 | EXTERNAL | | | Segmented | performed at [facility];888 | K/uL | LAB | | | Neutrophils | [address];[place] | | | | | | [address] | | | | + + + + + + | Absolute | 0.39 (L)Comment: Testing | 1.00 - 3.90 | EXTERNAL | | | Lymphocytes | performed at [facility];888 | K/uL | LAB | | | | [address];[place] | | | | | | [address] | | | | + + + + + + | Absolute | 0.62Comment: Testing | 0.00 - 0.80 | EXTERNAL | | | Monocytes | performed at [facility];888 | K/uL | LAB | | | | [address];[place] | | | | | | [address] | | | | + + + + + + | Absolute | 0.66 (H)Comment: Testing | 0.00 - 0.50 | EXTERNAL | | | Eosinophils | performed at [facility];[address] | K/uL | LAB | | | | [address];[place] | | | | | | [address] | | | | + + + + + + | Absolute | 0.06Comment: Testing | 0.00 - 0.10 | EXTERNAL | | | Basophils | performed at [facility];[address] | K/uL | LAB | | | | [address];[place], [place] | | | | | | [address] | | | | + + + [...] EXTERNAL | | | | performed at [facility] | | LAB | | | | [facility];[place], [place] | | | | | | [address] | | | | + + + [...] EXTERNAL | | | | performed at [facility];[address] | | LAB | | | | [address];[place] | | | | | | [address] | | | | + + + [...] EXTERNAL | | | | performed at [facility];888 | mmol/L | LAB | | | | [address];[place] | | | | | | [address] | | | | + + + + + + | K | 3.6Comment: Testing | 3.5 - 4.9 | EXTERNAL | | | | performed at [facility];888 | mmol/L | LAB | | | | [address];[place] | | | | | | [address] | | | | + + + + + + | Cl | 105Comment: Testing | 99 - 109 mmol/L | EXTERNAL | | | | performed at [facility];[address] | | LAB | | | | [address];[place] | | | | | | [address] | | | | + + + + + + | CO2 | 22 (L)Comment: Testing | 23 - 32 mmol/L | EXTERNAL | | | | performed at [facility];[address] | | LAB | | | | [address];[place] | | | | | | [address] | | | | + + + + + + | Anion Gap | 15Comment: Testing | 5 - 20 mmol/L | EXTERNAL | | | | performed at [facility];[address] | | LAB | | | | [address];[place] | | | | | | [address] | | | | + + + + + + | Glucose, | 89Comment: Testing | 65 - 99 mg/dL | EXTERNAL | | | Fasting | performed at [facility];[address] | | LAB | | | | [address];[place] | | | | | | [address] | | | | + + + + + + | BUN | 3 (L)Comment: Testing | 8 - 25 mg/dL | EXTERNAL | | | | performed at [facility];[address] | | LAB | | | | [address];[place] | | | | | | [address] | | | | + + + + + + | Creatinine | 0.43 (L)Comment: Testing | 0.50 - 1.00 | EXTERNAL | | | | performed at [facility];888 | mg/dL | LAB | | | | [address];[place] | | | | | | [address] | | | | + + + + + + | BUN/Creatin | 8Comment: Testing | | EXTERNAL | | | ine Ratio | performed at [facility];[address] | | LAB | | | | [address];[place] | | | | | | [address] | | | | + + + + + + | Calcium | 7.2 (L)Comment: Testing | 8.5 - 10.5 | EXTERNAL | | | | performed at [facility];888 | mg/dL | LAB | | | | [address];[place] | | | | | | [address] | | | | + + + + + + | Protein, | 5.3 (L)Comment: Testing | 6.3 - 8.2 g/dL | EXTERNAL | | | Total | performed at [facility];[address] | | LAB | | | | [address];[place] | | | | | | [address] | | | | + + + + + + | Albumin | 1.6 (L)Comment: Testing | 3.6 - 5.0 g/dL | EXTERNAL | | | | performed at [facility];[address] | | LAB | | | | [address];[place] | | | | | | [address] | | | | + + + + + + | Globulin | 3.6Comment: Testing | 1.3 - 4.9 g/dL | EXTERNAL | | | | performed at [facility];[address] | | LAB | | | | [address];[place] | | | | | | [address] | | | | + + + + + + | A/G Ratio | 0.5 (L)Comment: Testing | 1.0 - 2.4 | EXTERNAL | | | | performed at [facility];[address] | | LAB | | | | [address];[place] | | | | | | [address] | | | | + + + + + + | Bilirubin | 1.3Comment: Testing | 0.1 - 1.5 mg/dL | EXTERNAL | | | Total | performed at [facility];[address] | | LAB | | | | [address];[place] | | | | | | [address] | | | | + + + + + + | ALP, | 123 (H)Comment: Testing | 35 - 115 U/L | EXTERNAL | | | External | performed at [facility];[address] | | LAB | | | | [address];[place] | | | | | | [address] | | | | + + + + + + | AST | 24Comment: Testing | 10 - 45 U/L | EXTERNAL | | | | performed at [facility];[address] | | LAB | | | | [address];[place] | | | | | | [address] | | | | + + + + + + | ALT | 12Comment: Testing | 10 - 65 U/L | EXTERNAL | | | | performed at [facility];[address] | | LAB | | | | [address];[place], [place] | | | | | | [address] | | | | + + + [...] | | | | | | at [facility];[address];[place] [address] | | | | + + + [...] EXTERNAL | | | | performed at [facility];888 | mmol/L | LAB | | | | [address];[place] | | | | | | [address] | | | | + + + [...] EXTERNAL | | | | performed at [facility];[address] | | LAB | | | | [address];[place], [place] | | | | | | [address] | | | | + + + [...] EXTERNAL | | | | performed at [facility];[address] | | LAB | | | | [address];[place], [place] | | | | | | [address] | | | | + + + [...] EXTERNAL | | | | performed at [facility];[address] | | LAB | | | | [address];[place], [place] | | | | | | [address] | | | | + + + [...] | | | Patient | performed at [facility];[address] | | LAB | | | | [address]ros[address];[place] | | | | | | [address] | | | | + + + [...] | | | | | performed at [facility] | | | | | | [facility];[place], [place] | | | | | | [address] | | | | + + + [...] | | | | | [place] [address] | | | | + + + + + + | Non- | 2.59 (L)Comment: Testing | 3.70 - 5.10 | EXTERNAL | | | Red Blood | performed at [facility], [address] | M/uL | LAB | | | Cells | [address], | | | | | Counted | [place] [address] | | | | + + + + + + | Hemoglobin | 8.6 (L)Comment: Testing | 11.3 - 15.5 | EXTERNAL | | | | performed at [facility], [address] | g/dL | LAB | | | | [address], | | | | | | [place] [address] | | | | + + + + + + | Hematocrit, | 25.3 (L)Comment: Testing | 34.0 - 46.0 % | EXTERNAL | | | POC | performed at [facility], [address] | | LAB | | | | [address], | | | | | | [place] [address] | | | | + + + + + + | MCV | 97.7Comment: Testing | 80.0 - 100.0 fl | EXTERNAL | | | | performed at [facility], [address] | | LAB | | | | [address], | | | | | | [place] [address] | | | | + + + + + + | MCH | 33.0Comment: Testing | 27.0 - 34.0 pg | EXTERNAL | | | | performed at [facility], [address] | | LAB | | | | [address], | | | | | | [place] [address] | | | | + + + + + + | MCHC | 33.8Comment: Testing | 32.0 - 35.5 | EXTERNAL | | | | performed at [facility], [address] | g/dL | LAB | | | | [address], | | | | | | [place] [address] | | | | + + + + + + | RDW-CV | 47.7Comment: Testing | 37 - 53 fl | EXTERNAL | | | | performed at [facility], [address] | | LAB | | | | [address], | | | | | | [place] [address] | | | | + + + + + + | Platelet | 118 (L)Comment: Testing | 150 - 400 K/uL | EXTERNAL | | | Count | performed at [facility], [address] | | LAB | | | Plasma | [address], | | | | | | [place] [address] | | | | + + + + + + | MPV | 7.1Comment: Testing | fl | EXTERNAL | | | | performed at [facility], [address] | | LAB | | | | [address], | | | | | | [place] [address] | | | | + + + + + + | Differentia | AUTOMATEDComment: | | EXTERNAL | | | l Type | Testing performed at | | LAB | | | | [facility], [address] | | | | | | [place] | | | | | | [address] | | | | + + + + + + | % Segmented | 53.97Comment: Testing | % | EXTERNAL | | | | performed at [facility], [address] | | LAB | | | Neutrophils | [address], | | | | | | [place] [address] | | | | + + + + + + | % | 11.10Comment: Testing | % | EXTERNAL | | | Lymphocytes | performed at [facility], [address] | | LAB | | | | [address], | | | | | | [place] [address] | | | | + + + + + + | % Monocytes | 15.59Comment: Testing | % | EXTERNAL | | | | performed at [facility], [address] | | LAB | | | | [address], | | | | | | [place] [address] | | | | + + + + + + | % | 18.27Comment: Testing | % | EXTERNAL | | | Eosinophils | performed at [facility], [address] | | LAB | | | | [address], | | | | | | [place] [address] | | | | + + + + + + | % Basophils | 1.07Comment: Testing | % | EXTERNAL | | | | performed at [facility], [address] | | LAB | | | | [address], | | | | | | [place] [address] | | | | + + + + + + | Absolute | 2.33Comment: Testing | 1.90 - 7.40 | EXTERNAL | | | Segmented | performed at [facility], [address] | K/uL | LAB | | | Neutrophils | [address], | | | | | | [place] [address] | | | | + + + + + + | Absolute | 0.48 (L)Comment: Testing | 1.00 - 3.90 | EXTERNAL | | | Lymphocytes | performed at [facility], [address] | K/uL | LAB | | | | [address], | | | | | | [place] [address] | | | | + + + + + + | Absolute | 0.67Comment: Testing | 0.00 - 0.80 | EXTERNAL | | | Monocytes | performed at [facility], [address] | K/uL | LAB | | | | [address], | | | | | | [place], [place] [address] | | | | + + + + + + | Absolute | 0.79 (H)Comment: Testing | 0.00 - 0.50 | EXTERNAL | | | Eosinophils | performed at [facility], [address] | K/uL | LAB | | | | [address], | | | | | | [place], [place] [address] | | | | + + + + + + | Absolute | 0.05Comment: Testing | 0.00 - 0.10 | EXTERNAL | | | Basophils | performed at [facility], [address] | K/uL | LAB | | | | [address], | | | | | | [place], [place] [address] | | | | + + + [...] EXTERNAL | | | | performed at [facility], [address] | | LAB | | | | [address], | | | | | | [place] [address] | | | | + + + [...] EXTERNAL | | | | performed at [facility], [address] | | LAB | | | | [address], | | | | | | [place] [address] | | | | + + + [...] | | | Alcohol | performed at [facility];[address] | | LAB | | | | [address] [facility];[place], [place] | | | | | | [address] | | | | + + + [...] | | | | | [place] [address] | | | | + + + + + + | K | 3.3 (L)Comment: Testing | 3.5 - 4.9 | EXTERNAL | | | | performed at [facility], [address] | mmol/L | LAB | | | | [address], | | | | | | [place] [address] | | | | + + + + + + | Cl | 102Comment: Testing | 99 - 109 mmol/L | EXTERNAL | | | | performed at [facility], [address] | | LAB | | | | [address], | | | | | | [place] [address] | | | | + + + + + + | CO2 | 23Comment: Testing | 23 - 32 mmol/L | EXTERNAL | | | | performed at [facility], [address] | | LAB | | | | [address], | | | | | | [place] [address] | | | | + + + + + + | Anion Gap | 13Comment: Testing | 5 - 20 mmol/L | EXTERNAL | | | | performed at [facility], [address] | | LAB | | | | [address], | | | | | | [place] [address] | | | | + + + + + + | Glucose, | 88Comment: Testing | 65 - 99 mg/dL | EXTERNAL | | | Fasting | performed at [facility], [address] | | LAB | | | | [address], | | | | | | [place] [address] | | | | + + + + + + | BUN | 4 (L)Comment: Testing | 8 - 25 mg/dL | EXTERNAL | | | | performed at [facility], [address] | | LAB | | | | [address], | | | | | | [place] [address] | | | | + + + + + + | Creatinine | 0.4 (L)Comment: Testing | 0.50 - 1.00 | EXTERNAL | | | | performed at [facility], [address] | mg/dL | LAB | | | | [address], | | | | | | [place] [address] | | | | + + + + + + | BUN/Creatin | 10Comment: Testing | | EXTERNAL | | | ine Ratio | performed at [facility], [address] | | LAB | | | | [address], | | | | | | [place] [address] | | | | + + + + + + | Calcium | 7.7 (L)Comment: Testing | 8.5 - 10.5 | EXTERNAL | | | | performed at [facility], [address] | mg/dL | LAB | | | | [address], | | | | | | [place] [address] | | | | + + + + + + | Protein, | 5.7 (L)Comment: Testing | 6.3 - 8.2 g/dL | EXTERNAL | | | Total | performed at [facility], [address] | | LAB | | | | [address], | | | | | | [place] [address] | | | | + + + + + + | Albumin | 1.7 (L)Comment: Testing | 3.6 - 5.0 g/dL | EXTERNAL | | | | performed at [facility], [address] | | LAB | | | | [address], | | | | | | [place] [address] | | | | + + + + + + | Globulin | 4.0Comment: Testing | 1.3 - 4.9 g/dL | EXTERNAL | | | | performed at [facility], [address] | | LAB | | | | [address], | | | | | | [place] [address] | | | | + + + + + + | A/G Ratio | 0.4 (L)Comment: Testing | 1.0 - 2.4 | EXTERNAL | | | | performed at [facility], [address] | | LAB | | | | [address], | | | | | | [place] [address] | | | | + + + + + + | Bilirubin | 0.8Comment: Testing | 0.1 - 1.5 mg/dL | EXTERNAL | | | Total | performed at [facility], [address] | | LAB | | | | [address], | | | | | | [place] [address] | | | | + + + + + + | ALP, | 162 (H)Comment: Testing | 35 - 115 U/L | EXTERNAL | | | External | performed at [facility], [address] | | LAB | | | | [address], | | | | | | [place] [address] | | | | + + + + + + | AST | 29Comment: Testing | 10 - 45 U/L | EXTERNAL | | | | performed at [facility], [address] | | LAB | | | | [address], | | | | | | [place] [address] | | | | + + + + + + | ALT | 13Comment: Testing | 10 - 65 U/L | EXTERNAL | | | | performed at [facility], [address] | | LAB | | | | [facility], | | | | | | [place] [address] | | | | + + + [...] W | | | | | | [facility], | | | | | | [place] [address] | | | | + + + [...] EXTERNAL | | | | performed at [facility] | | LAB | | | | [address];[place] | | | | | | [address] | | | | + + + + + + | Clarity, | CLEARComment: Testing | | EXTERNAL | | | Urine | performed at [facility];[address] | | LAB | | | | [address];[place] | | | | | | [address] | | | | + + + + + + | Specific | 1.003Comment: Testing | 1.002 - 1.030 | EXTERNAL | | | [place], | performed at [facility];[address] | | LAB | | | Urine | [address];[place] | | | | | | [address] | | | | + + + + + + | Leukocyte | NEGATIVEComment: Testing | | EXTERNAL | | | Esterase, | performed at [facility];[address] | | LAB | | | Urine | [address];[place] | | | | | | [address] | | | | + + + + + + | Nitrite, | NEGATIVEComment: Testing | | EXTERNAL | | | Urine | performed at [facility];[address] | | LAB | | | | [address];[place] | | | | | | [address] | | | | + + + + + + | Urobilinoge | NORMALComment: Testing | mg/dL | EXTERNAL | | | n, Urine | performed at [facility];[address] | | LAB | | | | [address];[place] | | | | | | [address] | | | | + + + + + + | Protein, | NEGATIVEComment: Testing | mg/dL | EXTERNAL | | | Urine | performed at [facility];[address] | | LAB | | | | [address];[place] | | | | | | [address] | | | | + + + + + + | pH, Urine | 6.0Comment: Testing | 5.0 - 8.0 | EXTERNAL | | | | performed at [facility];[address] | | LAB | | | | [address];[place] | | | | | | [address] | | | | + + + + + + | Blood, | SMALL (A)Comment: | | EXTERNAL | | | Urine | Testing performed at | | LAB | | | | [facility];[address] | | [address];[place] [address] | | | | + + + + + + | Ketones | NEGATIVEComment: Testing | mg/dL | EXTERNAL | | | | performed at [facility];[address] | | LAB | | | | [address];[place] | | | | | | [address] | | | | + + + + + + | Bilirubin, | NEGATIVEComment: Testing | | EXTERNAL | | | Urine | performed at [facility];[address] | | LAB | | | | [address];[place] | | | | | | [address] | | | | + + + + + + | Glucose, | NEGATIVEComment: Testing | mg/dL | EXTERNAL | | | Urine | performed at [facility];[address] | | LAB | | | | [address];[place] | | | | | | [address] | | | | + + + + + + | WBC, UA | 0-2Comment: Testing | 0 - 5 /hpf | EXTERNAL | | | | performed at [facility];[address] | | LAB | | | | [address];[place] | | | | | | [address] | | | | + + + + + + | RBC, UA | 3-5Comment: Testing | 0 - 5 /hpf | EXTERNAL | | | | performed at [facility];[address] | | LAB | | | | [address];[place] | | | | | | [address] | | | | + + + + + + | Bacteria, | NONE SEENComment: | | EXTERNAL | | | UA | Testing performed at | | LAB | | | | [facility];[address] | | | | | | [address];[place] [address] | | | | + + + + + + | Epithelial | 11-15Comment: Testing | /lpf | EXTERNAL | | | Cells | performed at [facility];[address] | | LAB | | | | [address];[place] | | | | | | [address] | | | | + + + + + + | Mucus, | 1+Comment: Testing | | EXTERNAL | | | Urine | performed at [facility];[address] | | LAB | | | | [address];[place] | | | | | | [address] | | | | + + + [...] EXTERNAL LAB | | Testing performed at [facility] [address] COLOR | | | STRAW Testing performed | | | at [facility] [address];[place] [address] APPEARANCE | | | HAZY Testing performed at [facility] [address] | | | [address];[place] [address] RBC'S | | | 48 Testing performed at [facility] [address] | | | [address]vd;[place] [address] TOTAL NUCLEATED CELLS 10 | | | Testing performed at [facility] [address];[place] [address] | | | NEUTROPHILS 30 | | | Testing performed at [facility] [address];[place] [address] LYMPHOCYTES | | | 9 Testing performed | | | at [facility] [address];[place] [address] MONOCYTES/MACROPHAGES | | | 52 Testing performed at [facility] [address] | | | [address];[place] [address] Mesothelial Cells 9 | | | Testing performed at [facility] [address];[place], [place] | | | [address] CELLS COUNTED 100 | | | Testing performed at [facility];[address] [place] [address];[place] [address] | | + + + + +---------+ [...] | EXTERNAL LAB | | not a children librarian validated sample type for this method. No reference | | | ranges have been established. Testing performed at [facility], [address] | | | [place] [address] | | + + + + +---------+ [...] | EXTERNAL LAB | | not a children librarian validated sample type for this method. No reference | | | ranges have been established. Testing performed at [facility], [address] | | | [place] [address] FLUID TP SOURCE | | | ASCT Testing performed at [facility];[address] | | | [facility];[place] [address] | | + + + + +---------+ [...] EXTERNAL LAB | | is not a children librarian validated sample type for this method. No | | | reference ranges have been established. Testing performed at [facility], | | | [address] [address] | | + + + + +---------+ [...] | EXTERNAL LAB | | not a children librarian validated sample type for this method. No | | | reference ranges have been established. Testing performed at [facility], | | | [address] [facility], [place] [address] Glucose, Fluid Type | | | ASCT Testing performed at [facility];[address] | | | [facility];[place] [address] | | + + + + +---------+ [...] | ON PH STRIP Testing performed at [facility];[address] [place] [address];[place] [address] | | + + + + +---------+ [...] | | | Alcohol | performed at [facility];[address] | | LAB | | | | [address];[place], [place] | | | | | | [address] | | | | + + + [...] | | | Patient | performed at [facility];[address] | | LAB | | | | [address];[place] | | | | | | [address] | | | | + + + [...] | | | | | performed at [facility];[address] | | | | | | [facility];[place], [place] | | | | | | [address] | | | | + + + [...] EXTERNAL | | | | performed at [facility];[address] | K/uL | LAB | | | | [address];[place] | | | | | | [address] | | | | + + + + + + | Non- | 2.79 (L)Comment: Testing | 3.70 - 5.10 | EXTERNAL | | | Red Blood | performed at [facility];[address] | M/uL | LAB | | | Cells | [address];[place] | | | | | Counted | [address] | | | | + + + + + + | Hemoglobin | 9.2 (L)Comment: Testing | 11.3 - 15.5 | EXTERNAL | | | | performed at [facility];[address] | g/dL | LAB | | | | [address];[place] | | | | | | [address] | | | | + + + + + + | Hematocrit, | 27.1 (L)Comment: Testing | 34.0 - 46.0 % | EXTERNAL | | | POC | performed at [facility];[address] | | LAB | | | | [address];[place] | | | | | | [address] | | | | + + + + + + | MCV | 97.1Comment: Testing | 80.0 - 100.0 fl | EXTERNAL | | | | performed at [facility];[address] | | LAB | | | | [address];[place] | | | | | | [address] | | | | + + + + + + | MCH | 32.9Comment: Testing | 27.0 - 34.0 pg | EXTERNAL | | | | performed at [facility];[address] | | LAB | | | | [address];[place] | | | | | | [address] | | | | + + + + + + | MCHC | 33.9Comment: Testing | 32.0 - 35.5 | EXTERNAL | | | | performed at [facility];[address] | g/dL | LAB | | | | [address];[place] | | | | | | [address] | | | | + + + + + + | RDW-CV | 47.3Comment: Testing | 37 - 53 fl | EXTERNAL | | | | performed at [facility];[address] | | LAB | | | | [address];[place] | | | | | | [address] | | | | + + + + + + | Platelet | 155Comment: Testing | 150 - 400 K/uL | EXTERNAL | | | Count | performed at [facility];[address] | | LAB | | | Plasma | [address];[place] | | | | | | [address] | | | | + + + + + + | MPV | 7.1Comment: Testing | fl | EXTERNAL | | | | performed at [facility];[address] | | LAB | | | | [address];[place] | | | | | | [address] | | | | + + + + + + | Differentia | AUTOMATEDComment: | | EXTERNAL | | | l Type | Testing performed at | | LAB | | | | [facility];[address];[place] [address] | | | | + + + + + + | % Segmented | 54.16Comment: Testing | % | EXTERNAL | | | | performed at [facility];[address] | | LAB | | | Neutrophils | [address];[place] | | | | | | [address] | | | | + + + + + + | % | 12.84Comment: Testing | % | EXTERNAL | | | Lymphocytes | performed at [facility];[address] | | LAB | | | | [address];[place] | | | | | | [address] | | | | + + + + + + | % Monocytes | 16.65Comment: Testing | % | EXTERNAL | | | | performed at [facility];[address] | | LAB | | | | [address];[place] | | | | | | [address] | | | | + + + + + + | % | 15.14Comment: Testing | % | EXTERNAL | | | Eosinophils | performed at [facility];[address] | | LAB | | | | [address];[place] | | | | | | [address] | | | | + + + + + + | % Basophils | 1.21Comment: Testing | % | EXTERNAL | | | | performed at [facility];[address] | | LAB | | | | [address];[place] | | | | | | [address] | | | | + + + + + + | Absolute | 3.17Comment: Testing | 1.90 - 7.40 | EXTERNAL | | | Segmented | performed at [facility];[address] | K/uL | LAB | | | Neutrophils | [address];[place] | | | | | | [address] | | | | + + + + + + | Absolute | 0.75 (L)Comment: Testing | 1.00 - 3.90 | EXTERNAL | | | Lymphocytes | performed at [facility];[address] | K/uL | LAB | | | | [address];[place] | | | | | | [address] | | | | + + + + + + | Absolute | 0.97 (H)Comment: Testing | 0.00 - 0.80 | EXTERNAL | | | Monocytes | performed at [facility];[address] | K/uL | LAB | | | | [address];[place] | | | | | | [address] | | | | + + + + + + | Absolute | 0.89 (H)Comment: Testing | 0.00 - 0.50 | EXTERNAL | | | Eosinophils | performed at [facility];[address] | K/uL | LAB | | | | [address];[place] | | | | | | [address] | | | | + + + + + + | Absolute | 0.07Comment: Testing | 0.00 - 0.10 | EXTERNAL | | | Basophils | performed at [facility];[address] | K/uL | LAB | | | | [address];[place] | | | | | | [address] | | | | + + + [...] EXTERNAL | | | | performed at [facility];[address] | | LAB | | | | [address];[place] | | | | | | [address] | | | | + + + [...] EXTERNAL | | | | performed at [facility];[address] | | LAB | | | | [address];[place], [place] | | | | | | [address] | | | | + + + [...] EXTERNAL | | | | performed at [facility] | | LAB | | | | [address];[place] | | | | | | [address] | | | | + + + [...] EXTERNAL | | | | performed at [facility];[address] | mmol/L | LAB | | | | [address];[place] | | | | | | [address] | | | | + + + + + + | K | 3.6Comment: Testing | 3.5 - 4.9 | EXTERNAL | | | | performed at [facility];888 | mmol/L | LAB | | | | [address];[place] | | | | | | [address] | | | | + + + + + + | Cl | 97 (L)Comment: Testing | 99 - 109 mmol/L | EXTERNAL | | | | performed at [facility];[address] | | LAB | | | | [address];[place] | | | | | | [address] | | | | + + + + + + | CO2 | 21 (L)Comment: Testing | 23 - 32 mmol/L | EXTERNAL | | | | performed at [facility];[address] | | LAB | | | | [address];[place] | | | | | | [address] | | | | + + + + + + | Anion Gap | 16Comment: Testing | 5 - 20 mmol/L | EXTERNAL | | | | performed at [facility];[address] | | LAB | | | | [address];[place] | | | | | | [address] | | | | + + + + + + | Glucose, | 98Comment: Testing | 65 - 99 mg/dL | EXTERNAL | | | Fasting | performed at [facility];[address] | | LAB | | | | [address];[place] | | | | | | [address] | | | | + + + + + + | BUN | 5 (L)Comment: Testing | 8 - 25 mg/dL | EXTERNAL | | | | performed at [facility];[address] | | LAB | | | | [address];[place] | | | | | | [address] | | | | + + + + + + | Creatinine | 0.41 (L)Comment: Testing | 0.50 - 1.00 | EXTERNAL | | | | performed at [facility];888 | mg/dL | LAB | | | | [address];[place] | | | | | | [address] | | | | + + + + + + | BUN/Creatin | 12Comment: Testing | | EXTERNAL | | | ine Ratio | performed at [facility];888 | | LAB | | | | [address];[place] | | | | | | [address] | | | | + + + + + + | Calcium | 6.9 (L)Comment: Testing | 8.5 - 10.5 | EXTERNAL | | | | performed at [facility];888 | mg/dL | LAB | | | | [address];[place] | | | | | | [id number] | | | | + + + + + + | Protein, | 5.8 (L)Comment: Testing | 6.3 - 8.2 g/dL | EXTERNAL | | | Total | performed at [facility];[address] | | LAB | | | | [address];[place] | | | | | | [address] | | | | + + + + + + | Albumin | 1.3 (L)Comment: Testing | 3.6 - 5.0 g/dL | EXTERNAL | | | | performed at [facility];[address] | | LAB | | | | [address];[place] | | | | | | [address] | | | | + + + + + + | Globulin | 4.5Comment: Testing | 1.3 - 4.9 g/dL | EXTERNAL | | | | performed at [facility];888 | | LAB | | | | [address];[place] | | | | | | [address] | | | | + + + + + + | A/G Ratio | 0.3 (L)Comment: Testing | 1.0 - 2.4 | EXTERNAL | | | | performed at [facility];888 | | LAB | | | | [address];[place] | | | | | | [address] | | | | + + + + + + | Bilirubin | 0.9Comment: Testing | 0.1 - 1.5 mg/dL | EXTERNAL | | | Total | performed at [facility];888 | | LAB | | | | [address];[place] | | | | | | [address] | | | | + + + + + + | ALP, | 179 (H)Comment: Testing | 35 - 115 U/L | EXTERNAL | | | External | performed at [facility];[address] | | LAB | | | | [address];[place] | | | | | | [address] | | | | + + + + + + | AST | 37Comment: Testing | 10 - 45 U/L | EXTERNAL | | | | performed at [facility];[address] | | LAB | | | | [address];[place] | | | | | | [address] | | | | + + + + + + | ALT | 16Comment: Testing | 10 - 65 U/L | EXTERNAL | | | | performed at [facility];[address] | | LAB | | | | [address];[place] | | | | | | [address] | | | | + + + [...] | | | | | | at [facility];[address];[place] [address] | | | | + + + [...] EXTERNAL | | | | performed at [facility];[address] | | LAB | | | | [address];[place], [place] | | | | | | [address] | | | | + + + [...]
--- OUTSIDE RECORDS SUMMARY | ~2020-01-12 | XMS | Clinical Summary ---
Demographics + + + | Address | [address] | | | [place] [address] | + + + | Home Phone [...] + | Joanne Pham | ECON | [address] | | | | | [place] | | | | | [address] | | + + + + + | Viktor Son | EDDIE | Unknown | | + + + + + | Edd Gill | ECON | Unknown | | + + + + + | Conner Barber | ECON | Unknown | | + + + + + Care Team Providers + +------+ + | Care Copy Center Specialist Name | Role | Phone | [...] | | | | | | | VITAMINS/GEAR GRINDER) TABS | | | | | | [...] | | + +--------+ +--------+ +---------+--------+ | [facility] | IHS | [id number] | 05/12/19 | | | Indemn | | SERVICE | YELLOW | | 18-Pre | | | ity | | | HAWK | | sent | | | | + +--------+ +--------+ +---------+--------+ | [place] | MEDICA | [id number] | | [phone] | | Medica | | | ID [place] | | 011-Pr | 2 | | id | | | PLUS | | esent | | | | + +--------+ +--------+ +---------+--------+ | [facility] | IHS | [id number] | | | | Indemn | | SERVICE | YELLOW | | 015-Pr | | | ity | | | HAWK | | esent | | | | + +--------+ +--------+ +---------+--------+ | [employer] | MEDICA | [id number] | | [phone] | | Medica | | | ID [...] Person | Self | [birth year] | | [address] | | | al/Fam | | 1970 | [phone] | [place] [address] | | | deann | | | 7 (Home) | | + +--------+ +--------+ + + | Shaila Son | Person | Self | [birth year] | | [address] CRM SYSTEM 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
--- OUTSIDE RECORDS SUMMARY | ~2020-01-12 | XMS | Encounter Summary ---
Demographics + + + | Address | [address] | | | [place] [address] | + + + | Home Phone [...] Author + + + | Author | [facility] | | | and [place] | + + + | Organization | [facility] | | | and [place] | + + + | Address | Unknown | + + + | Phone | Unavailable | + + + Support + + + + + | Name | Relationship | Address | Phone | + + + + + | Joanne Pham | ECON | [address] | | | | | [place] | | | | | [address] | | + + + + + | Viktor Son | EDDIE | Unknown | | + + + + + | Edd Gill | ECON | Unknown | | + + + + + | Conner Barber | ECON | Unknown | | + + + + + Care Team Providers + +------+ + | Care Office Services Specialist Name | Role | Phone | + +------+ + PCP | Unavailable | + +------+ + Encounter Details +--------+ + + + + | Date | Type | Department | Care Team | Description | +--------+ + + + + | 07/27/ | Hospital | [facility] | Lasha Márquez | GI bleed; Seizure | | 2011 - | Encounter | [facility] | MD [address] | ([facility]); Alcohol | | | | CLINICAL DECISION | IRMA JEAN | withdrawal ([facility]); | | 07/30/ | | [address] | [address] | Blood loss anemia; | | 2011 | | [place], [place] | [place] [address] | Fever; | | | | [address] | [phone] | Thrombocytopenia | | | | [phone] | | ([facility]); Elevated | | | | | [...] Summaries by Dalia Oakes MD at 07/31/11 9803 Author: Dalia Oakes MD Service: Hospitalist Author Type: Physician Filed: 07/31/111118 Date of Service: 07/31/111105 Status: Signed Quarry Manager: Dalia Oakes MD (Physician) Related Notes: Original Note by Dalia Oakes MD (Physician) filed at 07/31/11 111 [facility] Service: Hospitalist Physician Discharge Summary Patient ID: Shaila Son [id number] 41 y.o. 1970 Admit date: 07/28/2011 Discharge [...] of alcoholism who initiall y presented to [facility] with Hx of seizure, according to patient she was in usual state of healt until earlier that day when she was witnessed by her aunt that she might had seizure with decreasing level of conciusness, her aunt called EMS who brought her to [facility] where she was evaluated and suspected to have possible alcohol withdrawal seizur e, in that hospital she had vomiting with blood. The physician contacted Dr. Griffith gastroent erologist to transfer patient to [facility] for possible need of endoscopy on [...] with her primary care physician at [facility]. 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 Pt states that she has others she can try to linda l for a ride, pt has a phone voucher with 75 minutes on it... Pt also has a brother that morgan es in [place] however pt states she does not want to call him... JAIME Lin stated that pts s ister had called earlier and stated that [facility] paid for her way home with [...] 1336 Date of Service: 07/31/111328 Status: Signed Quarry Manager: Riley Charles RN (Registered Nurse) Patient states [...] 07/31/11830 Date of Service: 07/31/11830 Status: Signed Quarry Manager: Carlos Nevarez RPH (Pharmacist) Vancomycin day 3, [...] 0.7 0.6-1.2 (mg/dL) Final Testing performed at [facility];[address];[place] [address] CREATININE: 0.7 (07/28/11 2312) Estimated creatinine clearance [...] Date of Service: 07/30/11 1231 Status: Signed Quarry Manager: Dalia Oakes MD (Physician) [facility] Service: Hospitalist Progress Note Shaila Son 41 y.o. [id number] 309/[id number] female BRANDI LEONARDO MD, MD Hospital [...] 1142 octreotide (SANDOSTATIN) infusion 25 mcg/hr (07/29/11 6599) pantoprozole (PROTONIX) infusion 8 mg/hr (07/30/11 5833) PRN Medications acetaminophen, acetaminophen, lorazepam, lorazepam, ondansetron, [...] 124* 65-99 (mg/dL) Final Testing performed at [facility];[address];[place] [address] CBC: Lab Results Component Value Date WBC [...] Date of Service: 07/30/11 1002 Status: Signed Quarry Manager: Mitchell Griffith IV, MD (Physician) [facility] Service: Gastroenterology Progress Note Hospital Day: LOS: [...] 1901 octreotide (SANDOSTATIN) infusion 25 mcg/hr (07/29/11 7298) pantoprozole (PROTONIX) infusion 8 mg/hr (07/30/11 1371) PRN Medications acetaminophen, acetaminophen, lorazepam, lorazepam, ondansetron, [...] history of varices per ED physician from [facility] and mild hematemesis this am per [...] Service: Hospitalist Author Type: Physician Filed: 07/29/11 8110 Date of Service: 07/29/11 2605 Status: Signed Quarry Manager: Dalia Oakes MD (Physician) [facility] Service: Hospitalist Progress Note Shaila Son 41 y.o. [id number] 309/[id number] female BRANDI LEONARDO MD, MD Hospital [...] 145* 65-99 (mg/dL) Final Testing performed at [facility];[address] [place] [address] CBC: Lab Results Component Value Date WBC [...] Date of Service: 07/29/11 1151 Status: Signed Quarry Manager: Mitchell Griffith IV, MD (Physician) [facility] Service: Gastroenterology Progress Note Hospital Day: LOS: [...] history of varices per ED physician from [facility] and mild hematemesis this am per [...] 07/29/11412 Date of Service: 07/29/11412 Status: Signed Quarry Manager: Devin Lynn RPH (Pharmacist) Clinical Pharmacy Note: Pharmacy Dosing Vancomycin; Day 1 Shaila Huy 41 y.o. female Ht Readings from Last 1 Encounters: 07/29/11 1.702 m (5' 7") Wt Readings from Last 1 Encounters: 07/29/11 61.2 kg (134 lb 14.7 oz) CREATININE Date Value Range Status 07/28/2011 0.7 0.6-1.2 (mg/dL) Final Testing performed at [facility];[address] [place] [address];[place] [address] CREATININE: 0.7 (07/28/11 2312) Estimated creatinine clearance [...] 1409 Date of Service: 07/30/111406 Status: Signed Quarry Manager: Mitchell Griffith IV, MD (Physician) [facility] Service: Gastroenterology Service Pre-procedure History & Physical [...] 0128 Date of Service: 07/29/11106 Status: Signed Quarry Manager: Lasha Márquez MD (Physician) [facility] Service: Hospitalist Admission History & [...] of alcoholism who initiall y presents to [facility] with Hx of seizure, according to patient she was in usual s peoples of healt until earlier today when she was witnessed by her aunt that she might have sei zure with decreasing level of conciusness, her aunt called EMS [facility] and suspected to have possible alcohol withdrawal seizure, wh ere t=in that hospital she has vomiting with blood in vomitus. The physician contacted dr anderson [facility] who has suggested to transfer patient to [facility] for p ossible need of endoscopy on [...] Date/Time Type and crossmatch x 2 units [[id number]] Collection: 07/28/112311 Resulted: 07/29/1117 Specimen Type: Blood ARM BAND NUMBER [id number] ARM BAND NUMBER Result: Testing performed at [facility];[address];[place] [address] ABO/RH(D) O POSITIVE ABO/RH(D) Result: Testing performed at [facility];[address] [place] [address] ANTIBODY SCREEN NEGATIVE ANTIBODY SCREEN Result: Testing performed at [facility];[address] [place] [address] UNIT NUMBER [id number] BLOOD COMPONENT TYPE Result: LEUKODEPLETED PC UNIT DIVISION 00 STATUS OF UNIT ALLOCATED TRANSFUSION STATUS Result: OK TO TRANSFUSE CROSSMATCH RESULT COMPATIBLE UNIT NUMBER [id number] BLOOD COMPONENT TYPE Result: LEUKODEPLETED PC UNIT DIVISION 00 STATUS OF UNIT ALLOCATED TRANSFUSION STATUS Result: OK TO TRANSFUSE CROSSMATCH RESULT COMPATIBLE Alcohol, Ethyl [[id number]] Collection: 07/28/112311 Resulted: 07/29/11 0014 ALCOHOL,ETHYL <3 mg/dL CBC with differential [[id number]] Abnormal Collection: 07/28/112311 Resulted: 07/28/112351 Specimen Type: [...] Result: NORMAL RBC MORPH Comprehensive metabolic panel [[id number]] Abnormal Collection: 07/28/112311 Resulted: 07/28/112338 Specimen Type: [...] ALT 22 U/L EGFR >60 mL/min/1.73m2 Amylase [[id number]] Abnormal Collection: 07/28/112311 Resulted: 07/28/112338 Specimen Type: Blood Specimen Source: Arm, Right AMYLASE 321 U/L H Lipase [[id number]] Collection: 07/28/112311 Resulted: 07/28/112338 Specimen Type: Blood Specimen Source: Arm, Right LIPASE 90 U/L aPTT [[id number]] Collection: 07/28/112311 Resulted: 07/28/112332 Specimen Type: Blood Specimen Source: Arm, Right APTT 32 seconds Protime [[id number]] Collection: 07/28/112311 Resulted: 07/28/112331 Specimen Type: Blood [...] has GI bleed Primary Care Physician: BRANDI LEOANRDO MD, MD LASHA MÁRQUEZ MD 07/29/2011 1:07 AM documente d in this encounter Consult Notes Mitchell Griffith MD - 07/29/2011 12:51 AM PDT Consult* by Mitchell Griffith IV, MD at 07/29/1150 Author: Mitchell Griffith IV, MD Service: (none) Author Type: Physician Filed: 07/29/11 0119 Date of Service: 04/21/12 0051 Status: Signed Quarry Manager: Mitchell Griffith IV, MD (Physician) [facility] Service: Gastroenterology Initial Consult Note Date of Admission: 07/28/2011 Reason for Consultation: Alcoholic, vomited blood, history remotely of varices Requesting Physician: Dr. Greenfield, Emergency Department History Obtained From: patient CHIEF COMPLAINT: Seizure this morning, threw up blood this am HISTORY OF PRESENT ILLNESS The patient is a 41 y.o. female with significant past medical history of chronic alcoholism who presented to [place] [facility] with seizure this am after missing alcohol - "ran out" - deve maryd limited episode of hematemesis this evening and do to remote history of varices transf erred here for further management. Denies melena, reflux, weight loss. Has "an ulcer" based on chronic epigastric pain. DT about 5 years ago when went to [facility]. No dysphagia. Fever note d on ED [...] file. 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 No [...] history of varices per ED physician from [facility] and mild hematemesis this am per [...] 07/29/1133 Date of Service: 07/29/1132 Status: Signed Quarry Manager: Liberty Gonzáles RN (Registered Nurse) hospitalist at bedside Liberty Gonzáles RN 07/29/1133 onver miriam Transaction, Provider Unknown - 07/28/2011 11:42 PM PDT ED Notes by Clarissa Eckert at 07/28/112341 Author: Clarissa Eckert Service: (none) Author Type: (none) Filed: 07/28/112343 Date of Service: 07/28/112341 Status: Signed Quarry Manager: Clarissa Eckert (Manager Inventory) Dr Arnold's answering service called, Dr Jackson is senior telecommunications specialist and responded. onver miriam Transaction, Provider Unknown - 07/28/2011 11:27 PM PDT ED Notes by Madelyn Rodgers RN at 07/28/112326 Author: Madelyn Rodgers RN Service: (none) Author Type: Registered Nurse Filed: 07/28/112327 Date of Service: 07/28/112326 Status: Signed Quarry Manager: Madelyn Rodgers RN (Registered Nurse) Critical result [...] 07/30/111943 Date of Service: 07/28/112247 Status: Signed Quarry Manager: Geovanny Greenfield DO (Physician) [facility] Department of Emergency Medicine 07/28/2011 History of Present Illness Patient Identification Shaila Son is a 41 y.o. female. Patient information was obtained from patient. History/Exam limitations: none. Patient presented to the Emergency Department by: Ambulance BRANDI LEONARDO MD, MD Chief Complaint Chief Complaint Patient presents with GI Bleeding Transfer from [facility] 22:48. Pt presents to the ED after seizure that occurred today. Seizure occurred at home an d pt went to [facility] for evaluation. She does have history of seizures. Onset of sympt oms was abrupt. Pt had an episode of coffee ground emesis while she was admitted at [facility] and was transferred here for further treatment [...] at home an d pt went to [facility] for evaluation. She does have history of seizures. Pt had an epis ode of coffee ground emesis there and was transferred here. H&H were also low as described i n HPI. On initial vital signs pt is tachycardic, febrile, and hypertensive. 22:51. Reviewed chart from [facility]. HGB of 9.3 and HCT of 27.6. Platelet count of 40. Pt was started on Octreotide bolus and was given 80 mg of Protonix at [facility]. Pt did have a seizure there in the ER and was given 1 mg of Ativan. 23:12. Will order EKG, INR, PTT, amylase, lipase, CBC, CMP, UDS, and etoh level. Will also order IV fluids. 23:35. Will place call to senior telecommunications specialist GI. 23:40. Reviewed lab results. Hypocalcemia. Amylase [...] notes. No prior ED visits. Chart from [facility] Laboratory Evaluation Results Procedure Component Value Ref Range Flag Date/Time Urine Microscopic [[id number]] Abnormal Collection: 04/21/12 0031 Order Status: Completed Resulted: 07/29/117 Specimen Type: Urine WBC 6-10 0 - 5 /hpf RBC 26-50 0 - 2 /hpf EPITHELIAL 26-50 /lpf BACTERIA 4+ NONE SEEN A Urine Drug Screen [[id number]] Abnormal Collection: 07/29/1130 Order Status: Completed Resulted: 07/29/11131 Specimen Type: Urine AMPHETAMINE NEGATIVE NEGATIVE OPIATES NEGATIVE NEGATIVE BARBITUATES NEGATIVE NEGATIVE PCP NEGATIVE NEGATIVE BENZODIAZEPINE POSITIVE NEGATIVE A THC POSITIVE NEGATIVE A COCAINE NEGATIVE NEGATIVE TRICYCLIC ANTIDEPRESS NEGATIVE NEGATIVE ACETAMINOPHEN/PARACET NEGATIVE NEGATIVE METHAMPHETAMINES NEGATIVE NEGATIVE METHADONE NEGATIVE NEGATIVE Alcohol, Ethyl [[id number]] Collection: 07/28/112311 Order Status: Completed Resulted: 07/29/11 0014 ALCOHOL,ETHYL <3 <10 mg/dL CBC with differential [[id number]] Abnormal Collection: 07/28/112311 Order Status: Completed Resulted: [...] Result: NORMAL RBC MORPH Comprehensive metabolic panel [[id number]] Abnormal Collection: 07/28/112311 Order Status: Completed Resulted: [...] 50 U/L EGFR >60 >60 mL/min/1.73m2 Amylase [[id number]] Abnormal Collection: 07/28/112311 Order Status: Completed Resulted: 07/28/112338 Specimen Type: Blood Specimen Source: Arm, Right AMYLASE 321 25 - 115 U/L H Lipase [[id number]] Collection: 07/28/112311 Order Status: Completed Resulted: 07/28/112338 Specimen Type: Blood Specimen Source: Arm, Right LIPASE 90 73 - 393 U/L aPTT [[id number]] Collection: 07/28/112311 Order Status: Completed Resulted: 07/28/112332 Specimen Type: Blood Specimen Source: Arm, Right APTT 32 25 - 37 seconds Protime [[id number]] Collection: 07/28/112311 Order Status: Completed Resulted: 07/28/112331 Specimen Type: Blood Specimen Source: Arm, Right INR 1.4 0.9 - 3.5 Radiology and EKG Evaluation Imaging Results XR Chest PA and Lateral (Preliminary result) Result time:07/29/11129 ED Interpretation Documented by Geovanny Greenfield DO (07/29/11129, [facility] Emergency Department, Emergency Medicine) This ED initial [...] time: 23:07 Rate: 109 Rhythm: Sinus tachycardia Simon: LAD VALENTIN: normal QRS: normal ST waves: [...] 07/28/112155 Date of Service: 07/28/112154 Status: Signed Quarry Manager: Madelyn Rodgers RN (Registered Nurse) 41 yo female, c/o seizures. Hx of etoh. 1 episode of seizing. Vomited approx 500ml blood. Madelyn Rodgers RN 07/28/112155 docume nted in this encounter Miscellaneous Notes Op Note - Mitchell Griffith MD - 07/30/2011 2:43 PM PDT Op Note by Mitchell Griffith IV, MD at 07/30/11 1442 Author: Mitchell Griffith IV, MD Service: (none) Author Type: Physician Filed: 07/30/11 8526 Date of Service: 07/30/111442 Status: Signed Quarry Manager: Mitchell Griffith IV, MD (Physician) Related Notes: Original Note by Mitchell Griffith IV, MD (Physician) filed at 07/30/11 1 454 [facility] Service: Gastroenterology ENDOSCOPY SUITE PROCEDURE NOTE Esophagogastroduodenoscopy [...] FOREARM | | | Testing performed at [facility];[address] | | | [facility];[place] [address] CULTURE | | | NO GROWTH IN 5 DAYS. | | | Testing performed at [facility] [address];[place] [address] | | | REPORT STATUS 08/03/2011 FINAL [...] AC | | | Testing performed at [facility];[address] | | | Bl;[place] [address] CULTURE | | | NO GROWTH IN 5 DAYS. | | | Testing performed at [facility];[address];[place] [address] | | | REPORT STATUS 08/03/2011 FINAL [...]
--- OUTSIDE RECORDS SUMMARY | ~2020-01-12 | XMS | Encounter Summary ---
Demographics + + + | Address | [address] | | | [place] [address] | + + + | Home Phone | | + + + | Preferred Language | Unknown | + + + | Marital Status | Single | + + + | Episcopalian Affiliation | 1041 | + + + | Race | or | + + + | Ethnic Group | Not or | + + + Author + + + | Author | [facility] | | | and [place] | + [...] + | Joanne Pham | ECON | [address] | | | | | [place] | | | | | [address] | | + + + + + | Viktor Son | EDDIE | Unknown | | + + + + + | Edd Gill | ECON | Unknown | | + + + + + | Conner Barber | ECON | Unknown | | + + + + + Care Team Providers + +------+ + | Care Banking Management Consulting Manager Name | Role | Phone | [...] | | SHONDA ALVAREZ | [place] [address] | | | | | [place] [address] | | | | | | [phone] | | | +--------+ + + + [...] for comparison only - no result from [facility]. | [facility] | + + + + +---------+ + + | Performing | Address | City/State/Zipcode | Phone Number | | Organization | | | | + +---------+ + + | [facility] | | | | + +---------+ + + documented in this encounter Visit Diagnoses Not on filedocumented in this encounter"
--- OUTSIDE RECORDS SUMMARY | ~2020-01-12 | XMS | Encounter Summary ---
Demographics + + + | Address | [address] | | | [place] [address] | + + + | Home Phone | | + + + | Preferred Language | Unknown | + + + | Marital Status | Single | + + + | Christian Affiliation | 1041 | + + + | Race | or | + + + | Ethnic Group | Not or | + + + Author + + + | Author | [facility] | | | and [place] | + + + | Organization | [facility] | | | and [place] | + + + | Address | Unknown | + + + | Phone | Unavailable | + + + Support + + + + + | Name | Relationship | Address | Phone | + + + + + | Joanne Pham | ECON | [address] | | | | | [place] | | | | | [address] | | + + + + + | Viktor Son | EDDIE | Unknown | | + + + + + | Edd Gill | ECON | Unknown | | + + + + + | Conner Barber | ECON | Unknown | | + + + + + Care Team Providers + +------+ + | Care Lamp Mechanic Name | Role | Phone | + +------+ + PCP | Unavailable | + +------+ + Encounter Details +--------+ + + + + | Date | Type | Department | Care Team | Description | +--------+ + + + + | 03/23/ | Hospital | [facility] | Alyce Dumont | Seizure (FORMERLY [facility]); UTI | | 2012 - | Encounter | MEDICAL CENTER | [address] | (lower urinary tract | | | | CLINICAL DECISION | [address] | infection); Seizure | | 03/28/ | | [address] | [place] [address] | disorder, secondary | | 2012 | | [place], [place] | [phone] | (FORMERLY [facility]); Alcohol | | | | [phone] | | dependence (FORMERLY [facility]); | | | | [phone] | | Fever; Alcohol | | | [...] Date of Service: 04/10/13 1001 Status: Signed Grape Cutter: Precious Miller MD (Physician) [facility] Service: Hospitalist Note Discharge Summary Date of [...] and felt she did not require any long-term anti-convulsants. She had evidence of a UTI an d possible bronchitis while in the hospital and she was treated with anti-biotics. She had evidence of alcohol associated anemia and thrombocytopenia and hyponatremia, all of which re mained stable during her stay. She had extensive work with social media developer while in the hospital. Unfortunately, due to h er non compliance with her outpatient regimen and continued alcohol abuse she was not eligib le for inpatient alcohol rehab (please see social media developer note.) She is being discharged i n stable condition but is at high risk for readmission due to her continued alcohol abuse an d underlying liver disease. Last CBC: WBC Date Value Range Status 03/28/2013 6.1 3.8 - 11.0 K/uL Final Testing performed at [address] [address] RBC Date Value Range Status 03/28/2013 2.70* 3.70 - 5.10 M/uL Final Testing performed at [address] [address] HGB Date Value Range Status 03/28/2013 9.3* 11.3 - 15.5 g/dL Final Testing performed at [address] [address] HCT Date Value Range Status 03/28/2013 26.5* 34.0 - 46.0 % Final Testing performed at [address] [address] MCV Date Value Range Status 03/28/2013 98.1 80.0 - 100.0 fl Final Testing performed at [address] [address] MCH Date Value Range Status 03/28/2013 34.4* 27.0 - 34.0 pg Final Testing performed at [address] [address] MCHC Date Value Range Status 03/28/2013 35.0 32.0 - 35.5 g/dL Final Testing performed at [address] [address] RDW SD Date Value Range Status 03/28/2013 51.2 37 - 53 fl Final Testing performed at [address] [address] PLT Date Value Range Status 03/28/2013 111* 150 - 400 K/uL Final Testing performed at [address] [address] MPV Date Value Range Status 03/28/2013 8.8 Final Testing performed at [address] [address] NEUTROPHILS ABS Date Value Range Status 03/28/2013 [...] are the prescriptions that you need to lemon picker. You may get these medications from [...] 03/28/131848 Date of Service: 03/28/131848 Status: Signed Grape Cutter: Paulina Palomares RN (Registered Nurse) Pt discharged [...] (none) Author Type: Registered Nurse Filed: 03/28/13 6084 Date of Service: 03/28/13 1102 Status: Addendum Grape Cutter: Alice Strong RN (Registered Nurse) Related Notes: Original Note by Alice Srtong RN (Registered Nurse) filed at 03/28/13 125 1 [facility] [address] [place] [place] [address] This worker [facility] a [facility] . Per h er, pt is not eligible for services thru [facility], as she has been noncompliant with her a ppointments over the last year. Per previous contact w the [facility], pt needs to be referred to the above listed rehab center. You need to present to the assessment center on a Sunday or , bring proof of insurance, your [place] affiliation proof, photo id and proof on income. The assessment c enter is located at [address] in [facility], their phone number is [phone] 1. . I met the pt this [...] w brother. 1529-Rec a call from Liset-at [facility]- let her know, pt will be gi shawn information to follow up At [facility] in [place], she will follow up with the the [...] Date of Service: 03/28/13 1019 Status: Signed Grape Cutter: Precious Miller MD (Physician) [facility] Service: Hospitalist Progress Note Hospital Day: LOS: [...] Service: Neurology Author Type: Physician Filed: 03/28/13 3084 Date of Service: 03/28/13813 Status: Signed Grape Cutter: Yareli Chandra MD (Physician) Subjective: Patient seen [...] status post bilateral coil embolization of the chin strap maker space. EEG: Unremarkable, mild generalized nonspecific cerebral [...] with IR, bilateral coil embolization of the chin strap maker space could be done to reinaldo at [...] Date of Service: 03/28/13 0803 Status: Signed Grape Cutter: Felecia George PT (Physical Therapist) 03/28/13 0803 PT Last Visit PT Received On 03/28/13 Reason for Treatment (sepsis from ETOH withdrawal) Requires PT Follow Up PT tech Follow up PT Only? No PT Eval/Reassessment Date 03/28/13 Assistance Required 1 person Warp Spinner Needed No Requires PT Follow Up PT [...] ETOH rehab facility. Prior Function Level of [place] Independent with functional mobility;Independent with ADLs (does [...] Eval/Reassessment Date 03/28/13 Assistance Required 1 person Warp Spinner Needed No Precautions Other Precautions fall precautions [...] 0333 Date of Service: 03/28/13324 Status: Signed Grape Cutter: Сергей Watson RN (Registered Nurse) Pt A&O x2-3, VSS, pt c/o of pain and given IV morphine x3. Pt did not sleep much during sh ift. No acute changes from pm assessment, q2h checks performed, will continue to monitor. Сергей Watson RN 03/28/2013 3:33 AM onver miriam Transaction, Provider Unknown - 03/27/2013 3:57 PM PST Case Management by Alice Strong RN at 03/27/13 0419 Author: Alice Strong RN Service: (none) Author Type: Registered Nurse Filed: 03/27/13 3469 Date of Service: 03/27/13 3374 Status: Signed Grape Cutter: Alice Strong RN (Registered Nurse) DCP- This worker rec a call from [facility] RN-ph . She d irects me to call the [facility] to [facility] alcohol rehab- called Behavioral [facility] at 1- [phone] and was directed to Tomas Bobo who referred me to JOHN out of [facility] , because pt is [place] Medicaid. [...] Service: (none) Author Type: Physician Filed: 03/27/13 6057 Date of Service: 03/27/13 1220 Status: Signed Grape Cutter: Precious Miller MD (Physician) 03/27/2013 Principal Problem: [...] post b ilateral coil embolization of the chin strap maker space. 03/25/2013 1. Lobulated appearance of the [...] 03/26/132219 Date of Service: 03/26/132218 Status: Signed Grape Cutter: Basilio Ferrara RN (Registered Nurse) Went to [...] 03/26/132014 Date of Service: 03/26/132002 Status: Signed Grape Cutter: Celso Goldberg MD (Physician) [facility] Service: Hospitalist Progress Note Hospital Day: LOS: 3 days Post-Op Day: * No surgery found * SUBJECTIVE Patient Summary: Transferred from [facility] after seizures from alcohol with [...] episode before while she was sober from [facility] but never been treated for seizure, [...] Management by Alice Strong RN at 03/26/13 9589 Author: Alice Strong RN Service: (none) Author Type: Registered Nurse Filed: 03/27/1317 Date of Service: 03/26/131648 Status: Addendum Grape Cutter: Alice Strong RN (Registered Nurse) Related Notes: [...] her w transpor tation. Pt has a [facility] RN- Liset Virk, who comes to the hospital and review w Dr Dixie Celestin and myself- the [facility]-will look for associated ETOH programs and check [...] 03/26/13606 Date of Service: 03/26/13605 Status: Signed Grape Cutter: Basilio Ferrara RN (Registered Nurse) Patient resting [...] 03/25/131826 Date of Service: 03/25/131825 Status: Signed Grape Cutter: Efra Roca RN (Registered Nurse) Pt started [...] Date of Service: 03/25/13 150 Status: Signed Grape Cutter: Wilber Santana MD (Physician) [facility] Service: Hospitalist Progress Note Hospital Day: LOS: 2 days Post-Op Day: * No surgery found * SUBJECTIVE Patient Summary: Transferred from [facility] after seizures from alcohol with [...] Date of Service: 03/25/13 1345 Status: Signed Grape Cutter: Alice Strong RN (Registered Nurse) DCP- Reviewed [...] Date of Service: 03/25/13 115 Status: Signed Grape Cutter: Savannah Clarke RN (Registered Nurse) Notified Lead RN patient's PIV is due to be changed today per policy. Instructed Lead RN t o have Primary RN call PICC RN if USGPIV is needed Thank you. Wilber Montes i, MD - 03/24/2013 3:48 PM PST Progress Notes by Wilber Santana MD at 03/24/13 7896 Author: Wilber Santana MD Service: (none) Author Type: Physician Filed: 03/24/13 1612 Date of Service: 03/24/13 1548 Status: Signed Grape Cutter: Wilber Santana MD (Physician) [facility] Service: Hospitalist Progress Note Hospital Day: LOS: 1 day Post-Op Day: * No surgery found * SUBJECTIVE Patient Summary: Transferred from [facility] after seizures from alcohol with [...] for anti seizure medication s. Alcoholism. On CINJ protocol. No sign of alcohol withdrawal. Pneumonia. [...] Notes by Lynda Gutiérrez RN at 03/24/13 5340 Author: Lynda Gutiérrez RN Service: (none) Author Type: Registered Nurse Filed: 03/24/13 2921 Date of Service: 03/24/13 0642 Status: Addendum Grape Cutter: Lynda Gutiérrez RN (Registered Nurse) Related Notes: [...] 03/23/131940 Date of Service: 03/23/131939 Status: Signed Grape Cutter: Alcira Epstein RN (Registered Nurse) Report given to 3OP RN, pt transferred with all of belongings. Wilber Montes i, MD - 03/23/2013 3:32 PM PST Progress Notes by Wilber Santana MD at 03/23/131531 Author: Wilber Santana MD Service: Hospitalist Author Type: Physician Filed: 03/23/13 153 Date of Service: 03/23/131531 Status: Signed Grape Cutter: Wilber Santana MD (Physician) Patient seen and [...] Results Procedure Component Value Units Date/Time TSH [[id number]] (Abnormal) Collected:03/23/13 1010 Specimen Information:Blood Updated:03/23/13 1309 TSH 6.48 (H) uIU/mL Ammonia [[id number]] (Abnormal) Collected:03/23/13 1010 Specimen Information:Blood Updated:03/23/13 1102 AMMONIA 42 (H) umol/L Protime-INR [[id number]] Collected:03/23/13 1010 Specimen Information:Blood Updated:03/23/13 1052 INR 1.4 Influenza Swab [[id number]] Collected:03/23/13617 Specimen Information:Nasopharyngeal / Nasopharyngeal Culture Updated:03/23/13640 Specimen Description NASOPHARYNGEAL RESULT Result: Negative for Influenzae Type A and Type B antigen by ICA RESULT Result: Testing performed at [facility];[address] [place] [address];[place] [address] REPORT STATUS 03/23/2013 FINAL Comprehensive metabolic panel [[id number]] (Abnormal) Collected:03/23/13609 Specimen Information:Blood Updated:03/23/13639 SODIUM 138 [...] 19 U/L EGFR >60 mL/min/1.73m2 Ethanol Level [[id number]] Collected:03/23/13609 Specimen Information:Blood Updated:03/23/13639 ALCOHOL,ETHYL <3 mg/dL CBC w Auto Diff [[id number]] (Abnormal) Collected:03/23/13609 Specimen Information:Blood Updated:03/23/13619 WBC 8.8 [...] 03/23/135 Date of Service: 03/23/131042 Status: Signed Grape Cutter: Alcira Epstein RN (Registered Nurse) Pt awake [...] 0850 Date of Service: 03/23/13847 Status: Signed Grape Cutter: Alcira Epstein RN (Registered Nurse) Pt awake, [...] 03/23/13822 Date of Service: 03/23/13729 Status: Signed Grape Cutter: Cristy Pereira RN (Registered Nurse) Pt in [...] 03/23/13643 Date of Service: 03/23/13643 Status: Signed Grape Cutter: Taryn Sauer RPH (Pharmacist) Clinical Pharmacy Note: Renal Monitoring Shaila Huy 42 y.o. female Ht Readings from Last 1 Encounters: 07/29/11 1.702 m (5' 7") Wt Readings from Last 1 Encounters: 07/29/11 60.782 kg (134 lb) CREATININE Date Value Range Status 03/23/2013 0.60 0.50 - 1.00 mg/dL Final Testing performed at [facility];[address] [place] [address];[place] [address] Patient's GFR is > 60 ml/min Pharmacy [...] 03/23/1339 Date of Service: 03/23/13629 Status: Signed Grape Cutter: Alyce Dumont MD (Physician) [facility] Service: Hospitalist Admission History & Physical Date of Admission: 03/23/2013 Requesting Physician: Antoinettei , Emergency Department Reason for Admission: Seizures and Sepsis History Obtained From: patient CHIEF COMPLAINT: seizures HISTORY OF PRESENT ILLNESS The patient is a 42 y.o. female with significant past medical history. Transferred from [facility] after seizures from alcohol withdrawal [...] or urinary symptoms [facility]. Still tachycardia but no seizure activities. Last ETOH 1.5 day ago. REVIEW OF SYSTEMS Negative except for pertinent items noted in HPI. Past Medical History Diagnosis Date Hemorrhage of gastrointestinal tract, unspecified Liver disease Hypertension Anemia Past Surgical History Procedure Date Esophagogastroduodenoscopy 07/30/2011 Procedure: ESOPHAGOGASTRODUODENOSCOPY; Surgeon: Mitchell Stewart IV, MD; Location: [facility]; Service: Gastroenterology; Laterality: N/A; anesthesia assist if available since may be difficult to sedate Hx of tracheostomy Immunizations: Influenza: Ordered Pneumoccocal: Not indicated Allergies Allergen Reactions Ciprofloxacin Other (See Comments) Pt. Unable to recall, this information came from [facility] record Ibuprofen Other (See Comments) Pt. Unable to recall, this information came from [facility] record (Not in a hospital admission) History [...] 0813 Date of Service: 03/27/1359 Status: Signed Grape Cutter: Yareli Chandra MD (Physician) I was asked by primary team to evaluate this patient in neurological consultation. Shiala Son is a 42 y.o. right handed [...] daily). She also admitted to previous s [facility]. She reports that her seizures has been [...] ESOPHAGOGASTRODUODENOSCOPY; Surgeon: Mitchell Stewart IV, MD; Location: [facility] ENDOSCOPY; Service: Gastroenterology; Laterality: N/A; anesthesia assist if available since may be difficult to sedate Hx of tracheostomy Allergy: Allergies Allergen Reactions Ciprofloxacin Other (See Comments) Pt. Unable to recall, this information came from [facility] record Ibuprofen Other (See Comments) Pt. Unable to recall, this information came from [facility] record Medications: Home medications: Prior to Admission [...] status post bilateral coil embolization of the chin strap maker space. EEG: Unremarkable, mild generalized nonspecific cerebral [...] to quit. Bilateral coil embolization of the chin strap maker space, not sure yet from indication. Patient [...] Ibanez PA-C Service: (none) Author Type: Physician Accounts Executive - Certified Filed: 03/23/13 0645 Date of Service: 03/23/13520 Status: Signed Grape Cutter: Aimee Ibanez PA-C (Physician Accounts Executive - Certified) Related Notes: Cosigned by Shaun Lee MD (Physician) filed at 03/23/13 0713 Procedures [facility] Department of Emergency Medicine History of Present Illness Patient Identification Shaila Son is a 42 y.o. female. Patient information was obtained from EMS personnel. History/Exam limitations: mental status. Patient presented to the Emergency Department by: [facility] Chief Complaint Chief Complaint Patient presents with Seizures Transfer from [facility] with seizures and ETOH withdrawl. Withdrawal [...] ESOPHAGOGASTRODUODENOSCOPY; Surgeon: Mitchell Stewart IV, MD; Location: [facility] END[facility]; Service: Gastroenterology; Laterality: N/A; anesthesia [...] came from [facility] record Ibuprofen Other (See Comments) Pt. Unable to recall, this information came from [facility] record History Social History Marital Status: Single [...] 0530 pt presents as a transfer from [facility] for alcohol abuse, seizures from withdrawal a nd fever with UTI. She has rec'd 5 liters of Fluids, vanco and zosyn. Dr Lee rec'd report f rom [facility], he is aware of pt, he rec admission. I will request a bed now. Pt is able to tell me she is in a hospital and that she arrived via ambulance. She can tell me its almost Sunday, that its March and year 2012. She vaguely remembers having a seizure at home but not much else. Pt was seen earlier at [facility] for abd pain, CT at that earlier visit indicated chronic c hangusha,sent home on Tramadol and returned with a hx of having 2 seizures at home. She hasn't had any ETOH in 36 hours. After discussing case with Dr Lee who took the initial transfer call, based off pts, fever , vitals signs, and seizures, she qualified for ICU status at [facility], and Dr Lee told ER staff her sx wouldn't qualify for our ICU status. He agreed on transfer. Her ER discharge d x from [facility] are: sepsis, ETOH withdrawal/seziures, chronic liver [...] Value Ref Range Date/Time Comprehensive metabolic panel [[id number]] (Abnormal) Collected:03/23/13609 Order Status:Completed Updated:03/23/13639 Specimen Information:Blood [...] U/L EGFR >60 >60 mL/min/1.73m2 Ethanol Level [[id number]] Collected:03/23/13609 Order Status:Completed Updated:03/23/13639 Specimen Information:Blood ALCOHOL,ETHYL <3 <10 mg/dL CBC w Auto Diff [[id number]] (Abnormal) Collected:03/23/13609 Order Status:Completed Updated:03/23/13619 Specimen Information:Blood [...] 03/23/1313 Date of Service: 03/23/13520 Status: Signed Grape Cutter: Shaun Lee MD (Physician) Related Notes: Related Note by Aimee Ibanez PA-C (Physician Accounts Executive - Certified) filed a t 03/23/13 0645 [...] 03/23/13518 Date of Service: 03/23/13511 Status: Signed Grape Cutter: Matt Benavides RN (Registered Nurse) Pt. Is a transfer from [facility] in [place], [place]. Per report she c/o abd pain [...] ic" seizure, lasting about 1 minute, at [facility] and has a lip laceration [...] 03/23/13440 Date of Service: 03/23/13440 Status: Signed Grape Cutter: Matt Benavides RN (Registered Nurse) Bed:08
Expected date:
Expected time:
Means of arrival:
Comments:
onver miriam Transjacob, Provider Unknown - 03/23/2013 4:36 AM PST ED Notes by Jose Carlos Anderson RN at 03/23/13435 Author: Jose Carlos Anderson RN Service: (none) Author Type: Registered Nurse Filed: 05/03/13150 Date of Service: 03/23/13435 Status: Signed Grape Cutter: Jose Carlos Anderson RN (Registered Nurse) Pt is a transfer from [facility]. Pt had seizures at home x2 as well as one seiz ure at [facility]. Pt has hx cirrhosis, ETOH abuse, varices, pancreatitis, and reese ia. [facility] Jsoe Carlos Anderson RN 05/03/13150 docume nted in [...] status post bilateral coil embolization of the chin strap maker space. | | | | | + [...] | | through the cranial vertex. FINDINGS: Stripping Machine Operator imaging demonstrates | | | normal craniocervical alignment. There is no prevertebral soft tissue | | | swelling. Coil embolization is noted along the bilateral chin strap maker | | | space. There is no [...] SON years FemaleCT | | HEAD WO [id number]/18/2013 7:48 PM INDICATION: Alcohol abuse, fever, seizure | | COMPARISON: None TECHNIQUE: CT scan of the head without contrast. 5-mm axial | | noncontrast images were acquired from the foramen magnum through the cranial vertex. | | FINDINGS: Stripping Machine Operator imaging demonstrates normal craniocervical alignment. There is no | | prevertebral soft tissue swelling. Coil embolization is noted along the bilateral | | chin strap maker space. There is no uncal or tonsillar [...] bilateral coil embolization of the | | chin strap maker space. | |There is no uncal or [...] status post bilateral coil embolization of the chin strap maker space . | | | | | [...] Performed At | + + + | SHIALA SON 1970 US ABDOMEN LIMITED 03/25/2013 5:55 [...] PM PDT SHAILA SON1970US ABDOMEN | | [id number]/25/2013 5:55 PM HISTORY: Liver cirrhosis, abdominal pain [...] ICA | | | Testing performed at [facility];[address] [facility];[place] [address] | | | REPORT STATUS 03/23/2013 FINAL [...]
--- OUTSIDE RECORDS SUMMARY | ~2020-01-12 | XMS | Encounter Summary ---
Demographics + + + | Address | [address] | | | [place] [address] | + + + | Home Phone [...] Author + + + | Author | [facility] | | | and [place] | + + + | Organization | [facility] | | | and [place] | + + + | Address | Unknown | + + + | Phone | Unavailable | + + + Support + + + + + | Name | Relationship | Address | Phone | + + + + + | Joanne Pham | ECON | [address] | | | | | [place] | | | | | [address] | | + + + + + | Viktor Son | EDDIE | Unknown | | + + + + + | Edd Gill | ECON | Unknown | | + + + + + | Conner Barber | ECON | Unknown | | + + + + + Care Team Providers + +------+ + | Care Headwaitress Name | Role | Phone | + [...] + + | 08/31/ | Hospital | [facility] | Marialuisa Roman, | Alcohol dependence | | 2016 - | Encounter | [facility] | [address] | with intoxication | | | | [address] [place] | [place], [place] | with complication | | 09/09/ | | [place] [address] | [id number] | (HCC) (Primary Dx); | | 2015 | | [phone] | | Anemia, unspecified | | | | | Grant Lomas MD | type; Ascites due to | | | | | [address] | alcoholic cirrhosis | | | | | [place], [place] | (HCC); | | | | [...] ascites and hyponatremia who was transferred from [facility]. She was found to have severe [...] discharged to [facility] with continued aldactone, lasix, blood pressure control for portal hypertension and lactulos e. Follow-up at [facility] with Juan Holguin. This patient's pathology report will be forwarded from Dr. Luis Miguel Bucio (pathologist in [place]). Code Status: Full Code Disposition: [facility] Discharge Condition: fair Follow-up Information Follow up with Trixie Rose PA-C In 1 week. Specialty: Internal Medicine Contact information: [id number] [address] Discharge [...] by: Jose Carlos Albert MD, 09/10/2015 11:16 [facility] documented in this encounter Medications at [...] Albert MD - 09/09/2015 5:37 PM PDT [facility] Hospitalist Progress Note Shaila Son is [...] Product Code RBC Leukocytes Reduced UNIT # [id number] UNIT ABO O UNIT RH POS CROSSMATCH [...] this chart may have been created with InThrMa voice recognition software. Occasi onal wrong-word or sound-alike substitutions may have occurred due to the inherent gallardo itations of voice recognition software. Please read the chart carefully and recognize, using context, where these substitutions have occurred itchell, Jose Carlos Chen MD - 09/08/2015 5:35 PM PDT [facility] Hospitalist Progress Note Shaila Son is [...] this chart may have been created with InThrMa voice recognition software. Occasi onal wrong-word or sound-alike substitutions may have occurred due to the inherent gallardo itations of voice recognition software. Please read the chart carefully and recognize, using context, where these substitutions have occurred Jose Carlos Garcia MD - 09/07/2015 5:42 PM PDT [facility] Hospitalist Progress Note Shaila Son is [...] Product Code RBC Leukocytes Reduced UNIT # [id number] UNIT ABO O UNIT RH POS CROSSMATCH [...] A p reliminary report was sent by [employer] on 09/06/2015 at 7:03 PM with no [...] this chart may have been created with InThrMa voice recognition software. Occasi onal wrong-word or sound-alike substitutions may have occurred due to the inherent gallardo itations of voice recognition software. Please read the chart carefully and recognize, using context, where these substitutions have occurred Grant Mace MD - 09/06/2015 2:33 PM PDT [facility] Hospitalist Progress Note Shaila Son is [...] noting at the time of discharge from [facility] she was gi shawn 5 [...] ination the patient's care as outlined above. Garnt Lomas 09/06/2015 14:33 [facility] Portions of this chart may have been created with InThrMa voice recognition software. Occasi onal wrong-word or sound-alike substitutions may have occurred due to the inherent gallardo itations of voice recognition software. Please read the chart carefully and recognize, using context, where these substitutions have occurred arker, Grant Pardo MD - 0 09/05/2015 2:46 PM PDT [facility] Hospitalist Progress Note Shaila Son is [...] as such I do want to volume mail machine operator someone in with her crit of 22 without active bleeding I'm going to give a unit of blood ove rnight and potentially a second unit tomorrow a.m. ending on her response to transfusion. T his will volume mail machine operator and hopefully improve her functional status [...] this chart may have been created with InThrMa voice recognition software. Occasi onal wrong-word or sound-alike substitutions may have occurred due to the inherent gallardo itations of voice recognition software. Please read the chart carefully and recognize, using context, where these substitutions have occurred arker, Grant Pardo MD - 0 09/04/2015 2:57 PM PDT [facility] Hospitalist Progress Note Shaila Son is [...] this chart may have been created with InThrMa voice recognition software. Occasi onal wrong-word or [...] Mace MD - 09/03/2015 8:47 AM PDT [facility] Hospitalist Progress Note Shaila Son is [...] and smear. Zacarias awaiting the records from [facility] to determine the type of treatment [...] sam was made to accommodate the 8 Turkish paracentesis trocar catheter, which were advanced into [...] this chart may have been created with InThrMa voice recognition software. Occasi onal wrong-word or [...] mi ght be different from the original. [facility] Hospitalist Progress Note Shaila Son is [...] this chart may have been created with InThrMa voice recognition software. Occasi onal wrong-word or [...] by: Robel Taylor MD, 09/08/2015 11:59 [facility] by Robel Taylor MD at 0 09/08/2015 12:00 PM PDTParkerGrant MD - 09/01/2015 6:43 PM PDTFormatting of this note mi ght be different from the original. Patient: Shaila Son : 1970: Age: 45 y.o. MedRec: [id number] Admission date: 09/01/2015 Hospital day #: 0 Physician author: Grant Lomas MD HISTORY AND PHYSICAL CHIEF COMPLAINT: Patient transferred to this facility from [facility] without emergency room rec ords or [...] of 4 L paracentesis in 03/29/2015 at [facility] History of seizures at the patient's order from [facility] being divalproex DR 150 mg [...] at the time of discharge 04/01/2015 from [facility] was tete ing Cefpodoxime 200 [...] CKTOTAL No results for input(s): PHART, PO2ART, LXE8QBG, MCR8WLF, BEART, O7CPYTZS in the last 168 h ours. Xray [...] signed by: Grant Lomas MD 09/01/2015 18:43 [facility] Portions of this chart may have been created with InThrMa voice recognition software. Occasi onal wrong-word or sound-alike substitutions may have occurred due to the inherent gallardo itations of voice recognition software. Please read the chart carefully and recognize, using context, where these substitutions have occurred documented in this enc ounter Miscellaneous Notes Plan of Care - Janeen Srivastava MSW - 09/10/2015 11:49 AM PDTPatient to transfer to [facility]. This CM faxed over the SNF transfer orders, PASRR, and RXs. All other documentation is placed in manila folder and in ghost chart. This CM spoke with Irena who states that she will look over the orders and call this write r back with a picking tech time. Electronically signed by: HANNAH Contreras 09/10/2015 11:52 Spoke with Josephine who reported a picking tech time of 1300. This Cm let patient know and asked if she would like any family notified, she stated "they already know I'm going there". She did not have any further concerns noted. Electronically signed by: HANNAH Contreras 09/10/19 16 15:16 NF Lyndsay Albert, Jose Carlos Chen MD - 09/10/2015 11:13 AM PDTFormatting of this note might be differe nt from the original. [facility] FACILITY TRANSFER ORDERS Patient Name: Shaila Son Patient : 1970 Gender: female Date of Admission: 09/01/2015 Date of Discharge: 09/10/2015 Admitting Provider: Marialuisa Roman MD Discharging Provider: Jose Carlos Albert MD Consultants: none PCP: Juan Holguin [facility] transferring to: [facility] Provider after transfer: Per SNF CODE STATUS: [x] Attempt CPR [] Do not resuscitate If patient is pulseless and not breathing, RN/CODE ENFORCEMENT INSPECTOR may pronounce . Advanced Directives included: [] [...] for this patient. Diet: [] As tolerated DIAMOND POWDER MIXER may upgrade or downgrade diet as condition [...] Whole [] Thin Liquids [] Cut-up [] [place] Thick [] Advanced Chopped [] Honey Thickened [] Chopped [] Advanced Ground [] 1:1 feedings [] Ground/Pureed [] Other: Tube Feedings: [] PEG [] GT [] JT [] NGT [] Formula type: (Administrative Law Judge may change/substitute if indicated). [] Continuous Rate: [...] [x] OT Evaluation & Management for: [] DIAMOND POWDER MIXER Evaluation &Management for: [] Other: Wound/Skin Care: [...] Carlos Hester MD, certify that post hospital intermediate care is medically nec essary on a continuing basis for any of the conditions for which he/she received care during this hospitalization. Check one: [x] Skilled [] Intermediate Additional Orders/Instructions: Physician's signature: 09/10/2015 11:[address] [facility] USE ONLY: [] Admitting [...] weight-bearing History of Presenting Problem: Transfer from [facility], no records or labs available. P t unable to provide history. Reportedly stopped medications x 1 month ago. Hx 4L paracente sis @ [facility] 03/23; hx seizures, chronic anemia. [...] for technique w/ IV pole Level of Tor[place] : contact guard assist, verbal cues required Assistive Device: (IV stand) Distance (feet): 300 Transfers Using IV stand for support Sit-Stand, Level of [place]: supervision required Stand-Sit, Level of [place]: supervision required [id number], Assistive Device: none Safety Issues: balance decreased during turns, step length decreased, loses balance backwar d Impairments: impaired balance, strength decreased, decreased flexibility, postural control impaired, muscle tone abnormal Bed Mobility Assistive Device: bed rails Supine to Sit, Level of [place]: minimum assist (75% patient effort) Sit to Supine, Level of [place]: modified independence Impairments: impaired balance, strength decreased [...] Activity Type: supine to sit/sit to supine [place] Level: independent Assistive Device: none Time to Achieve: 5 - 7 days Goal Status: progressing toward goal, revised Transfer Training Goal, Activity Type: sit to stand/stand to sit [place] Level: modified independence Assistive Device: 2 wheeled walker (FWW) Time to Achieve: 5 - 7 days Goal Status: progressing toward goal, revised Gait Training Goal, [place] Level: modified independence Assistive Device: 2 wheeled [...] Calls appropriately. Sleeping t/o the night in [facility]. Moderate amount of liquid stool [...] Missed Visit Patient Information Patient Name: Shaila oSn Date of : 1970 Age: 45 y.o. [...] FWW with SBA Ambulated an est 250'. GIFT SHOP ASSISTANT bro ught a different IV pole to provide safer ambulating with pole to/from bathroom. Pt report s and nursing confirms that pt is Independent in her room. Education: Safety with functional mobility Treatment Provided: ADL and functional mobility training. Patient Status/Goals Reflects last filed data of patient status; may be from multiple contributors. ADLs Grooming, Level of [place]: supervision required Assistive Device: none Grooming Assess/Train, [...] therapies. She stood at the sink to record searcher her te eth with supervision, Pt fatigued [...] overall everything was oka y. Patient is Shinto and I wished her good health. Spiritual Intervention: Patient welcomed infectious disease technician visit and I wished her good health. Spiritual Outcomes: Patient thank me for the visit. Spiritual Goals/Follow up: Steel Fabricating Supervisor will continue to provide ongoing emotional/spirtiual support [...] weight-bearing History of Presenting Problem: Transfer from [facility], no records or labs available. P t unable to provide history. Reportedly stopped medications x 1 month ago. Hx 4L paracente sis @ [facility] 03/23; hx seizures, chronic anemia. [...] on L during initial contact. Level of [place] : supervision required Assistive Device: 2 wheeled walker (FWW) Distance (feet): 120 Transfers Sit-Stand, Level of [place]: supervision required Stand-Sit, Level of [place]: supervision required Gsc-Rzuyw-Cmu, Assistive Device: 2 wheeled walker (FWW) Toilet, Assistive Device: none (recommend FWW as pt is slightly unsteady on her feet) Safety Issues: balance decreased during turns, step length decreased, loses balance backwar d Impairments: muscle tone abnormal, strength decreased, impaired balance, coordination impai red Bed Mobility Assistive Device: bed rails Supine to Sit, Level of [place]: modified independence Sit to Supine, Level of [place]: independent Impairments: impaired balance, strength decreased Balance [...] in lower legs and ankles STG GOALS [place] Level: independent Assistive Device: none Time to Achieve: 2 days Goal Status: new [place] Level: modified independence Assistive Device: 2 wheeled walker (FWW) Time to Achieve: 2 days Goal Status: new Gait Training Goal, [place] Level: modified independence Assistive Device: 2 wheeled [...] PTA, 09/07/2015 12:45 lan of Care - [facility], Paulina Goddard OT - 09/07/2015 12:32 [...] from multiple contributors. ADLs LB, Level of Torrington: supervision required, set up required LB Dressing [...] planning: I received a phone call from [facility] katheryn [place] this morning. She states that they have a bed available and would be able to accept Ms Shaila Son when she is medially stable for discharge. [facility] does request for the doctor to include an order for Ativan PO and IM o n her SNF discharge order for possible Seizure activity. Otherwise no concerns with taking h er. Dr Lomas notified of the above information. Electronically signed by: Yumiko Anderson RN 09/06/2015 10:01 [facility] notified patient will be medially stable for discharge tomorrow, Sunday , 09/07/2015. Patient also notified of the above information. Electronically signed by: Yumiko Anderson RN 09/06/2015 11:40 Updated doctor progress notes faxed to [facility] per her request, fax # . Electronically [...] is a 45 y.o. who transferred from [facility], no records or labs available. Pt unable to provide history. Reportedl y stopped medications x 1 month ago. Hx 4L paracentesis @ [facility] 03/23; hx seizures, chronic anemia. [...] stairs at home. Transfers Sit-Stand, Level of Torrington: supervision required Toilet, Assistive Device: none (recommend FWW as pt is slightly unsteady on her feet) Safety Issues: balance decreased during turns, step length decreased, loses balance backwar d Impairments: muscle tone abnormal, strength decreased, impaired balance, coordination impai red Bed Mobility Assistive Device: bed rails Supine to Sit, Level of [place]: modified independence Sit to Supine, Level of [place]: independent Impairments: impaired balance, strength decreased Balance [...] in lower legs and ankles STG GOALS [place] Level: independent Assistive Device: none Time to Achieve: 2 days Goal Status: new [place] Level: modified independence Assistive Device: 2 wheeled walker (FWW) Time to Achieve: 2 days Goal Status: new Gait Training Goal, [place] Level: modified independence Assistive Device: 2 wheeled [...] agrees and would like to go to [place] as she is from [place] and family and friends could visit. If [facility] does not have any beds available, she is open to [place]. Referral has been faxed to [facility]. Yumiko Anderson RN 09/05/2015 12:23 lan of [facility] - Steve Salamanca RN - 09/05/2015 5:09 [...] who presents to therapy for Transfer from [facility], no records or labs available. Pt unable to provid e history. Reportedly stopped medications x 1 month ago. Hx 4L paracentesis @ [facility] 03/23; hx seizures, chronic anemia. [...] from multiple contributors. ADLs Toileting, Level of Torrington: contact guard assist, verbal cues required, set up requir ed Assistive Device: grab bar Toileting Assess/Train, Position: sitting, supported standing Toileting Assess/Train, Impairments: impaired balance, strength decreased, coordination imp aired Cognitive Mood/Behavior: hypoactive (quiet, withdrawn), flat affect Orientation: oriented x 4 Speech: (very soft) Transfers Toilet, Level of [place]: contact guard assist, verbal cues required, set [...] ctulose given. Multiple loose BM's today. lan [facility] Sabrina jimenes RN - 09/03/2015 5:25 AM [...] possible paracentesis again today. lan of [facility] - Tresa Viera RN - 09/02/2015 6:23 [...] neurologic deterior ation7. pain8. renal dysfunction9. respiratory [id number]. situational response Intervention: Promote Neurologic Homeostasis Patient [...] as there is no Cell p radha fibreglass gun hand out there) #[phone]). He said that the living situation is as follows. She has a room in her Aunmauricio Travis's home located in [place], [place] that she doesn't use very o ften where four of her Cousins live as well. She normally lives with Edd in a mobile that is located below Aunt Angy's home. There are three steps leading to the entrance on the [facility]. Trixie Rose PA-C at the [facility] is her PCP. I called brian amaro and had them place her name on Shaila's chart. She uses the pharmacy located at [facility] first then uses the [place] [facility] second. She owns a cane, a four wheel walker, hand rails by the tub/shower and toilet, a hand held shower head and uses a metal fold up chair in the tub. She has used the [employer] [facility] for most of her DME and then would li ke to use [facility] located in [place], [place]. They said that [facility] would be fine if they would come out. They said that the four Cousins staying at Aunmauricio Travis 's home are all drinking all the time. Edd said that his home would be a safe place for H H to visit though. dEd said that she would go back to [facility] as her "Plan B" as she has [...] with her Drug and Alcohol Counselor, Andreia ([phone]), from [facility] and that she had helped arrange for her to come to [facility]. There was a questions as to whether [...] Andres Mancera MD PATIENT NAME: KRISTI, | [place] [facility] | | SHAILA ALMEIDA GENDER: Romulo [...] | | | preparation was performed by [facility] [address] [place] [address] | | | [place] [address] and [facility] | | | [address] [place] [address]. Professional | | | interpretation was performed by [facility] [address] | | | [facility] - [address] [place] [address] (Medical | | | Director: Bebeto Ruiz M.D.; IA#:[id number]).8 Diagnostician: | | | Gladis Johnson M.S., KAVIN([facility]), [facility] Genetic Engineer | | | Diagnostician: Bebeto Ruiz [...] [address] | [place] | [phone] | | [facility] | | [address] | | | - LABORATORY | | [...] [address] | [place] | [phone] | | [facility] | | [address] | | | - LABORATORY | | [...] (L) | 7 - 18 mg/dL | [facility] | | | | | | ST. [...] mL/min/1.73m2 | [facility] | | | [place] | RATE,ESTIMATED | | MEDICAL | | | | mL/min/1.33s7Ocnf than | | CENTER - | | [...] [address] | [place] | [phone] | | [facility] | | [address] | | | - LABORATORY | | [...] + + + | UNIT # | [id number] | | [facility] | | | | [...] St | [place] | | | [facility] | | [address] | | | - BLOOD BANK | [...] + | [facility] | [address] | [place] | [phone] | | [facility] | | [address] | | | - LABORATORY | | [...] mL/min/1.73m2 | [facility] | | | [place] | RATE,ESTIMATED | | MEDICAL | | | | mL/min/1.19o0Eyya than | | CENTER - | | [...] | | ine Ratio | | | [facility] | | | | | | [...] [address] | [place] | [phone] | | [facility] | | [address] | | | - LABORATORY | | [...] [address] | [place] | [phone] | | [facility] | | [address] | | | - LABORATORY | | [...] + | [facility] | [address] | [place] | [phone] | | [facility] | | [address] | | | - LABORATORY | | [...] [address] | [place] | [phone] | | [facility] | | [address] | | | - LABORATORY | | [...] | 0.65 | 0.60 - 1.30 | [place] | | | | | mg/dL | [facility] | | | | | | MEDICAL | | | | | | CENTER - | | | | | | LABORATORY | | + + + + + + | eGFR, | >60Comment: GLOMERULAR | >=60 | [place] | | | non- | FILTRATION | mL/min/1.73m2 | [facility] | | | [place] | RATE,ESTIMATED | | MEDICAL | | | | mL/min/1.01s2Fmcu than | | CENTER - | | [...] + | [facility] | [address] | [place] | [phone] | | [facility] | | [address] | | | - LABORATORY | | [...] ST. | [address] | [place] | [phone] | | [facility] | | [address] | | | - LABORATORY | | | | + + + + + Surgical Pathology Exam (09/08/2015 12:00 AM PDT) + + | Specimen | + + | Soft tissue sample | | (specimen) | + + + + + | Narrative | Performed At | + + + | SPECIMEN(S): A LIVER NEEDLE BIOPSY SPECIMEN SOURCE: A. LIVER | [place] [facility] | | NEEDLE BIOPSY CLINICAL HISTORY: [...] may not be | | | fully equal opportunity representative should be considered. Noninvasive MRI studies | | | may help to further characterize the lesion if clinical concern | | | remains. Results discussed with Dr. Albert by Dr. More on | | | September 09 at 3:10 p.m. [facility]:C2NR GROSS DESCRIPTION: The specimen, | | [...] for | | | neoplastic hepatocellular nodules. [facility] PERFORMING LABORATORY: | | | Tissue processing and slide preparation were performed by [facility] | | | [employer] [facility], [place] [address] | | | (Laboratory Apparatus Glass Grinder: Bebeto Ruiz M.D.; CLIA#: [id number]). | | | Professional interpretation [facility] | | | [facility], [address] [place] [address], [place], | | | [place] [address] (Laboratory Apparatus Glass Grinder: Jonny Ernandez M.D.; CLIA#: | | | [id number]). Diagnostician: Ana M Holm MD Pathologist | [...] Jossy | | | | | | [facility] | | | | | | [place], [address], | | | | | | [place] [address] | | | | + + + + + + + + | Specimen | + + | Blood specimen | | (specimen) | + + + + + + + | Performing | Address | City/State/Zipcode | Phone Number | | Organization | | | | + + + + + | [facility] | [address] | [place] [address] | [phone] | + + + + + PTT [...] + | [facility] | [address] [address] | [place] | [phone] | | [facility] | | [address] | | | - LABORATORY | | [...] [address] | [place] | [phone] | | [facility] | | [address] | | | - [...] | Basophils | | K/uL | [facility] | | | | | [...] [address] | [place] | [phone] | | [facility] | | [address] | | | - LABORATORY | | [...] 8 | 7 - 18 mg/dL | [place] | | | | | | [facility] | | | | | MEDICAL | | | | | | CENTER - | | | | | | LABORATORY | | + + + + + + | Creatinine | 0.61 | 0.60 - 1.30 | [facility] | | | | | mg/dL | [facility] | | | | | | MEDICAL | | | | | | CENTER - | | | | | | LABORATORY | | + + + + + + | eGFR, | >60Comment: GLOMERULAR | >=60 | [facility] | | | non- | FILTRATION | mL/min/1.73m2 | [facility] | | | [place]anese | RATE,ESTIMATED | | MEDICAL | | | | mL/min/1.90t7Qoqj than | | CENTER - | | [...] [address] | [place] | [phone] | | [facility] | | [address] | | | - LABORATORY | | [...] + + + | UNIT # | [id number] | | [facility] | | | | [...] ST. | [address] | [place], [place] | | | [facility] | | [address] | | | - BLOOD BANK | [...] | | | report was sent by [employer] on 09/06/2015 at 7:03 PM with no [...] | | preliminary report was sent by [employer] on 09/06/2015 at 7:03 PM with | [...] | |A preliminary report was sent by [employer] on 09/06/2015 at 7:03 PM with no [...] + | [facility] | [address] | [place] | [phone] | | [facility] | | [address] | | | - LABORATORY | | [...] mL/min/1.73m2 | [facility] | | | [place] | RATE,ESTIMATED | | MEDICAL | | | | mL/min/1.92w9Pegy than | | CENTER - | | [...] 7.3 (L) | 8.3 - 10.5 | [facility] | | | | | mg/dL | [facility] | | | | | | MEDICAL | | | | | | CENTER - | | | | | | LABORATORY | | + + + + + + | Albumin | 1.6 (L) | 3.2 - 5.0 g/dL | [facility] | | | | | | ST. [...] [address] | [place] | [phone] | | [facility] | | [address] | | | - LABORATORY | | [...] St | [place] | | | [facility] | | [address] | | | - BLOOD BANK | [...] + + + | UNIT # | [id number] | | [facility] | | | | [...] + | [facility] | [address] | [place] | | | [facility] | | [address] | | | - BLOOD BANK | [...] | | Code | | | [facility] | | | | | | MEDICAL | | | | | | CENTER - | | | | | | BLOOD BANK | | + + + + + + | UNIT # | [id number] | | [facility] | | | | [...] St | [place] | | | [facility] | | [address] | | | - BLOOD BANK | [...] + | [facility] [facility] | [address] | [place] | [phone] | | [facility] | | [address] | | | - LABORATORY | | [...] mL/min/1.73m2 | [facility] | | | [place] | RATE,ESTIMATED | | MEDICAL | | | | mL/min/1.58j0Yxnq than | | CENTER - | | [...] ST. | [address] | [place] | [phone] | | [facility] | | [address] | | | - LABORATORY | | [...] + | [facility] | [address] | [place] | [phone] | | [facility] | | [address] | | | - LABORATORY | | [...] [address] | [place] | [phone] | | [facility] | | [address] | | | - LABORATORY | | [...] + | [facility] | [address] | [place] | [phone] | | [facility] | | [address] | | | - LABORATORY | | [...] mL/min/1.73m2 | [facility] | | | [place] | RATE,ESTIMATED | | MEDICAL | | | | mL/min/1.35t5Bllk than | | CENTER - | | [...] [address] | [place] | [phone] | | [facility] | | [address] | | | - LABORATORY | | [...] [address] | [place] | [phone] | | [facility] | | [address] | | | - LABORATORY | | [...] | | | | | | | [id number] | | | | | | Source [...] Performed: | | | | | | [facility] | | | | | | [facility], [address] | | | | | | [facility] [place] [address] | | | | + + + [...] [facility] | [address] | [place] [address] | [phone] | + + + + + Ammonia [...] [address] | [place] | [phone] | | [facility] | | [address] | | | - LABORATORY | | [...] | 0.61 | 0.60 - 1.30 | [place] | | | | | mg/dL | [facility] | | | | | | MEDICAL | | | | | | CENTER - | | | | | | LABORATORY | | + + + + + + | eGFR, | >60Comment: GLOMERULAR | >=60 | [place] | | | non- | FILTRATION | mL/min/1.73m2 | [facility] | | | [place] | RATE,ESTIMATED | | MEDICAL | | | | mL/min/1.42t5Ijzf than | | CENTER - | | [...] [address] | [place] | [phone] | | [facility] | | [address] | | | - LABORATORY | | [...] [address] | [place] | [phone] | | [facility] | | [address] | | | - LABORATORY | | | | + + + + + Medical Cytology (09/03/2015 12:00 AM PDT) + + | Specimen | + + | | + + + + + | Narrative | Performed At | + + + | ORDERING PHYSICIAN: Grant Lomas MD PATIENT NAME: [facility] | | SHAILA ALMEIDA GENDER: [...] | | | interpretation was performed by [facility] - [facility] | | | [place] - [address] [place] [address] (Medical | | | Director: Bebeto Ruiz M.D.; [facility]#:[id number]).8 Technical | | | preparation was performed by [facility] [id number] | | | [address]., [place] [address] and [facility] | | | [address] [place] [address]. Diagnostician: | | | Gladis Johnson M.S., CT(ASCP), [facility] Genetic Engineer | | | Diagnostician: Ana M [...] sam was made to accommodate the 8 Turkish paracentesis trocar | | | catheter, which [...] made to accommodate the 8 | | Turkish paracentesistrocar catheter, which were advanced into the [...] | | | | | | | [id number] | | | | | | Source [...] | | | | | | Jossy Ripon | | | | | | [facility], [address] | | | | | | [place] [address] | | | | + + + [...] [address] | [place] [address] | [phone] | + + + + + Culture, [...] ST. | [address] | [place], [place] | [phone] | | [facility] | | [address] | | | - LABORATORY | | [...] + | [facility] | [address] | [place], [place] | [phone] | | [facility] | | [address] | | | - LABORATORY | | [...] [address] | [place] | [phone] | | [facility] | | [address] | | | - LABORATORY | | [...] [address] | [place] | [phone] | | [facility] | | [address] | | | - LABORATORY | | [...] [address] | [place] | [phone] | | [facility] | | [address] | | | - LABORATORY | | [...] + + + | Color, Body | [place] | | [facility] | | | Fluid [...] ST. | [address] | [place] | [phone] | | [facility] | | [address] | | | - LABORATORY | | [...] [place] | | | | | | [address] | | | | + + + + + + + + | Specimen | + + | Blood specimen | | (specimen) | + + + + + + + | Performing | Address | City/State/Zipcode | Phone Number | | Organization | | | | + + + + + | [facility] | [address] | [place] [address] | [phone] | + + + + + Ferritin [...] [address] | [place] | [phone] | | [facility] | | [address] | | | - LABORATORY | | [...] [address] | [place] | [phone] | | [facility] | | [address] | | | - LABORATORY | | [...] ST. | [address] | [place], [place] | [phone] | | [facility] | | [address] | | | - LABORATORY | | [...] | | B-12 | <145 | | [facility] | | | | pg/mLINDETERMINATE: | [...] [address] | [place] | [phone] | | [facility] | | [address] | | | - LABORATORY | | [...] [address] | [place] | [phone] | | [facility] | | [address] | | | - LABORATORY | | [...] [place] | | | | | | [address] | | | | + + + [...] [address] | [place] [address] | [phone] | + + + + + Protime [...] [address] | [place] | [phone] | | [facility] | | [address] | | | - LABORATORY | | [...] [address] | [place] | [phone] | | [facility] | | [address] | | | - LABORATORY | | [...] + | [facility] | [address] | [place] | [phone] | | [facility] | | [address] | | | - LABORATORY | | [...] | non- | FILTRATION | mL/min/1.73m2 | [facility] | | | [place] | RATE,ESTIMATED | | MEDICAL | | | | mL/min/1.92a3Yhmi than | | CENTER - | | [...] | | | | | mg/dL | [facility] | | | | | | MEDICAL | | | | | | CENTER - | | | | | | LABORATORY | | + + + + + + | Albumin | 1.3 (L) | 3.2 - 5.0 g/dL | [facility] | | | | | | [facility] | | | | | | [...] [address] | [place] | [phone] | | [facility] | | [address] | | | - LABORATORY | | [...] [address] | [place] | [phone] | | [facility] | | [address] | | | - LABORATORY | | [...] [address] | [place] | [phone] | | [facility] | | [address] | | | - LABORATORY | | [...] - 1.030 | [facility] | | | [place], | | | [facility] | | [...] [address] | [place] | [phone] | | [facility] | | [address] | | | - LABORATORY | | [...] | | | interpretation was performed by [facility] [address] | | | Center Branch - [address] [place] [address] (Medical | | | Director: Bebeto Ruiz M.D.; [facility]#:[id number]).8 Technical | | | preparation was performed by [facility] [address] | | | [address], [place] [address] and [employer], [place] | | | [address] [place] [address]. Diagnostician: | | | Gladis Johnson M.S., CT([facility]), [facility] Genetic Engineer | | | Diagnostician: Ana M [...] | Blood in | | | [facility] | | | 3rd | | | [...] ST. | [address] | [place], [place] | [phone] | | [facility] | | [address] | | | - LABORATORY | | [...] [address] | [place] | [phone] | | [facility] | | [address] | | | - LABORATORY | | [...] + | [facility] | [address] | [place] | [phone] | | [facility] | | [address] | | | - LABORATORY | | [...] mL/min/1.73m2 | [facility] | | | [place] | RATE,ESTIMATED | | MEDICAL | | | | mL/min/1.88r4Uigo than | | CENTER - | | [...] [address] | [place] | [phone] | | [facility] | | [address] | | | - LABORATORY | | [...] [address] | [place] | [phone] | | [facility] | | [address] | | | - LABORATORY | | [...] ST. | [address] | [place], [place] | | | [facility] | | [address] | | | - BLOOD BANK | [...] [address] | [place] | [phone] | | [facility] | | [address] | | | - LABORATORY | | [...] | | | | | | | [facility] 09/02/15 at 0845, Give 1 [...] | | | | 30 Minutes, ONCE, [facility] 09/02/15 at | | | [...] 8:37 | | | | | on [facility] 09/02/15 at 0945 | | [...] PDT | | | | | ONCE, [facility] 09/02/15 at 1900, For 1 [...] PDT | | | | | ONCE, [facility] 09/01/15 at 2115, For 1 | | [...] PDT | | | | | ONCE, [facility] 09/09/15 at 1045, For 1 [...] 8:08 | | | | | ONCE, [facility] 09/09/15 at 0815, For 1 [...] | | | | First dose on [facility] 09/02/15 at | | AM [...]
--- OUTSIDE RECORDS SUMMARY | ~2020-01-12 | XMS | Encounter Summary ---
Demographics + + + | Address | [address] | | | [place] [address] | + + + | Home Phone | | + + + | Preferred Language | Unknown | + + + | Marital Status | Single | + + + | Adventist Affiliation | [id number] | + + + [...] + | Joanne Pham | ECON | [id number] | | | | | [place] | | | | | [phone] | | + + + + + | Viktor Son | EDDIE | Unknown | | + + + + + | Edd Gill | ECON | Unknown | | + + + + + | Conner Barber | ECON | Unknown | | + + + + + Care Team Providers + +------+ + | Care Cementer Machine Name | Role | Phone | + [...] | | | | | | | Hypomagnesem | | | | | | | ia Alcohol | | | | | | | withdrawal | | | | | | | syndrome | | | | | | | with | | | | | | | complication | | | | | | | (HCC) | | | | | | | Alcohol | | | | | | | withdrawal | | | | | | | seizure with | | | | | | | delirium | | | | | | | (HCC) | | | +--------+--------+ + + + + Encounter Details +--------+ + + + + | Date | Type | Department | Care Team | Description | +--------+ + + + + | 05/03/ | Hospital | [facility] | [place], | Alcohol withdrawal | | 2018 - | Encounter | [facility] | [address] | seizure with | | | | [address] | [place] | delirium (HCC) | | 05/12/ | | [place] [id number] | [id number] | (Primary Dx); | | 2017 | | [phone] | | Hypomagnesemia; | | | | | Hossein Givens MD | Alcohol withdrawal | | | | | [address] | syndrome with | | | | | [place], [place] | complication (HCC); | | | | | [id number] | Seizure due to | | | | | | alcohol withdrawal, | | | | | Grant Lomas MD | uncomplicated (HCC); | | | | | [address] | Anemia, unspecified | | | | | [place], [place] | type; Alcoholic | | | | | [id number] | cirrhosis of liver | | | | | | with ascites (HCC); | | | | | | Hepatic | | | | | | encephalopathy | | | | | | (HCC); Hyponatremia; | | | | | | Pancytopenia (HCC) | +--------+ + + + + [...] + + + | Blood Pressure | 128/72 | 05/12/2017 1:00 PM | | | | | PST | | + + + + + | Pulse | 64 | 05/12/2017 1:00 PM | | | | | PST | | + + + + + | Temperature | 36.7 C (98.1 F) | 05/12/2017 1:00 PM | | | | | PST | | + + + + + | Respiratory Rate | 16 | 05/12/2017 1:00 PM | | | | | PST | | + + + + + | Oxygen Saturation | 99% | 05/12/2017 7:50 AM | | | | | PST | | + + + + + | Inhaled Oxygen | - | - | | | Concentration | | | | + + + + + | Weight | 59 kg (130 lb 1.1 | 05/07/2017 4:00 AM | | | | oz) | PST | | + + + + + | Height | 170.2 cm (5' 7") | 05/03/2017 8:42 PM | | | | | PST | | + + + + + | Body Mass Index | 20.37 | 05/03/2017 8:42 PM | | | | | PST [...] documented as of this encounter Discharge Summaries Sandy Valle MD - 05/12/2017 11:59 AM PSTFormatting of this note might be different fro m the original. DISCHARGE SUMMARY Pt. Name/Age/: Shaila Son 46 y.o. 1970 Date of Admission: 05/03/2017 Date of Discharge: 05/12/2017 Admitting Physician: Hossein Givens MD PCP: Trixie Rose Discharging Physician: Sandy Valle Consultants: None Primary Discharge Dx: 1. Alcohol withdrawal syndrome with seizure 2. HTN 3. Seizure due to alcohol withdrawal 4. Pancytopenia possibly from cirrhosis + alcohol abuse 5. Cirrhosis from alcohol complicated by portal HTN/ascites/HE/hyponatremia/pancytopenia Patient Active Problem List Diagnosis Anemia Hepatic encephalopathy Ascites due to alcoholic cirrhosis Alcohol dependence with intoxication with complication Hyponatremia Seizure due to alcohol withdrawal, uncomplicated Alcohol withdrawal syndrome with complication Alcoholic cirrhosis of liver with ascites Bilateral lower extremity edema Altered mental status, unspecified Reason for Admission (Brief): This is a 46 y.o.femalepast medical history significant for alcohol dependence, history of of alcohol withdrawal seizure who presents with seizure from alcohol withdrawal. Hospital Course, including Complications: 1. Alcohol withdrawal syndrome with seizure - Resolved - Was on precedex gtt up until 05/08. Had one more episode of seizure during hospital stay once precedex gtt was stopped. No further episode after that. - continue folic acid, thiamin, MVT - stop drinking alcohol - [facility] 2. HTN - on nadolol 3. Seizure due to alcohol withdrawal 4. Pancytopenia possibly from cirrhosis + alcohol abuse 5. Cirrhosis from alcohol complicated by portal HTN/ascites/HE/hyponatremia/pancytopenia - continue lactulose; titrate bowel movement to 2-3/day - outpatient follow up with hepatology - alcohol cessation - was prescribed nadolol and rifaximine but was not taking at home - c/w nadolol and rifaximine - started on low dose lasix and aldactone this admission. 6. Hypomagnesemia. On Mg supplements Medications Reconciled upon Discharge are: Discharge Medications New Medications Details folic acid 1 mg tablet Take 1 tablet by mouth Daily. Start: 05/13/2017 furosemide 20 mg tablet Take 1 tablet by mouth Daily. aka: LASIX Start: 05/13/2017 lactulose 10 g/15 mL solution Take 30 mLs by mouth 2 times daily. magnesium oxide 400 mg tablet Take 1 tablet by mouth Daily. aka: MAG-OX Start: 05/13/2017 pantoprazole 40 mg tablet Take 1 tablet by mouth every morning (before breakfast). aka: PROTONIX spironolactone 25 mg tablet Take 1 tablet by mouth Daily. aka: ALDACTONE Start: 05/13/2017 Unchanged Medications Details DAILY MULTIPLE VITAMINS/LITIGATION LEGAL SECRETARY Tabs Take 1 tablet by mouth Daily. lidocaine 5% patch Place 1 patch onto the skin Daily. Apply for 12 hours, then remove for 12 hours. aka: LIDODERM nadolol 20 MG tablet Take 20 mg by mouth nightly. aka: CORGARD rifAXIMin 550 mg Tabs Take 550 mg by mouth 2 times daily. To prevent rise in ammonia aka: XIFAXAN thiamine 100 mg tablet Take 100 mg by mouth Daily. aka: VITAMIN B-1 Immunization History Administered Date(s) Administered INFLUENZA PF QUAD(PED/ADOL/ADULT),PSKT or VIAL 02/10/2014, 04/10/2016 PNEUMOCOCCAL POLYSACCHARIDE 23-VALENT (PPSV23) 03/24/2013 Reason for major medication changes in hospital: Lasix, aldactone and lactulose added for cirrhosis Condition on Discharge: Stable Vital Signs: Temp: 37.1 C (98.8 F) BP: (!) 139/98 Pulse: 72 Resp: 20 SpO2: 99 % Min/Max Temp past 24 hours:Temp Av.2 C (99 F) Min: 37.1 C (98.7 F) Max: 37. 5 C (99.5 F) Intake/Output Summary (Last 24 hours) at 02/03/18 1159 Last data filed at 05/12/17 0900 Gross per 24 hour Intake 200 ml Output 900 ml Net -700 ml Last Wt. Before discharge: Weight: 59 kg (130 lb 1.1 oz) Pending study results on DC: None Disposition: Home Follow-Up Plans: Follow-up with: PCP in 5-7 days. Need Outpatient alcohol treatment from [facility] Diet: Low salt diet Activity: As tolerated Code Status/Advance Directive (Pertinent discussions/declarations): Full Code Time spent on Discharge and Coordination of post-hospital care: >30 minutes Electronically signed by: Sandy Valle, 05/12/2017 11:59 [facility] documented in this en counter Discharge Instructions Instructions Sandy Valle MD - 05/12/20171. Take all medications as instructed. 2. Lasix 20mg PO daily and aldactone 25 mg PO daily was added this admission. 3. Take lactulose and make sure you have 2-3 bowel movements everyday. 4. Please stop drinking alcohol. 5. Need Outpatient alcohol treatment from [facility] 6. Please make sure to follow up with PCP in 5-7 days. Please have repeat BMP/Mg prior to o ffice visit. AttachmentsThe following attachments cannot be sent through Care Everywhere.ALCOHOL WITHDRA WALAlcohol Withdrawal Seizure (Arabic)documented in this encounter Medications at Time of [...] mouth | 120 mL | 0 | 02//20 | | | mL solution | 2 [...] | | | | | | | VITAMINS/LITIGATION LEGAL SECRETARY) TABS | | | | | | [...] encounter Progress Notes Teresa Saha RN - 05/12/2017 4:32 PM PSTDischarge instructions reviewed with miguelina pimentel, all prescriptions faxed to [facility] as well as paper prescriptions given, reminded t o make follow up appointment, gave handout on new prescriptions, all questions answered. Joan ctronically signed by: Teresa Constantino RN 05/12/2017 21:23 Afshan Christian MD - 05/11/2017 3:34 PM PST . [facility] Hospitalist Progress Note Shaila Son is a 46 y.o. female INTERVAL HPI: This is a 46 y.o. female past medical history significant for alcohol dependence, history o f of alcohol withdrawal seizure who presents with seizure from alcohol withdrawal. Last se izure activity 05/10/17. Placed back on CIWA protocol. SUBJECTIVE: No acute issues overnight. She feels better his morning. Denies any chest pain, shortness o f breath. No abdominal pain. VITALS: Temp: 36.8 C (98.2 F), Pulse: 71, Resp: 18, BP: 150/73, SpO2 100 % on room air at flow rate 6L/min Temp Min: 36.8 C (98.2 F) Max: 37.2 C (99 F) Weight: 63.5 kg (140 lb) Intake/Output Summary (Last 24 hours) at 05/11/17 1534 Last data filed at 05/11/17 0146 Gross per 24 hour Intake 560 ml Output 100 ml Net 460 ml PHYSICAL EXAM: Gen Desire - not in acute distress Head - Normocephalic, without obvious abnormality Eyes - PERRL, conjunctiva/corneas clear ENT - mucous membranes moist Neck - supple Lungs - clear to auscultation, no wheezes or rales and unlabored breathing Heart - normal rate, regular rhythm, normal S1, S2 Abdomen - soft, non tender, BS+ Extremities - no peripheral edema, no clubbing or cyanosis Skin - no rashes Neurologic - No focal weakness clinically DIAGNOSTIC STUDIES: Available data and images were reviewed personally. Significant results and findings are a ddressed here or in the Assessment and Plan. Recent Results (from the past 24 hour(s)) Ammonia Result Value Ref Range AMMONIA 51 (H) 11 - 35 umol/L Basic Metabolic Panel Result Value Ref Range NA 133 (L) 136 - 149 mmol/L K 4.0 3.5 - 5.1 mmol/L CL 107 98 - 109 mmol/L CO2 22 (L) 24 - 31 mmol/L ANION GAP 4 3 - 16 mmol/L GLUCOSE 97 70 - 109 mg/dL BUN 8 7 - 18 mg/dL Creatinine, Serum/Plasma 0.60 0.60 - 1.30 mg/dL eGFR if not >60 >=60 mL/min/1.73m2 CALCIUM 7.6 (L) 8.3 - 10.5 mg/dL BUN/CREA 13.3 Magnesium Result Value Ref Range MG 1.5 (L) 1.8 - 2.5 mg/dL No results found. Current Facility-Administered Medications: acetaminophen 650 mg Oral Q4H PRN adult multivitamin with minerals/iron 1 tablet Oral Daily artificial tears (PF) 1 drop Both Eyes Q1H PRN renal multivitamin 1 tablet Oral Daily folic acid 1 mg Oral Daily furosemide 20 mg Oral Daily heparin 5,000 Units Subcutaneous 2 times per day lactulose 30 mL Oral 4x Daily LORazepam 1-4 mg Oral PRN Or LORazepam 0.5-4 mg Intravenous PRN magnesium oxide 400 mg Oral Daily melatonin 3 mg Oral Nightly PRN nadolol 20 mg Oral Daily ondansetron 4 mg Intravenous Q6H PRN pantoprazole 40 mg Intravenous BID rifAXIMin 550 mg Oral BID senna 8.6 mg Oral BID PRN sodium citrate-citric acid 20 mL Oral BID spironolactone 25 mg Oral Daily thiamine 100 mg Oral Daily ASSESSMENT and PLAN: Active Hospital Problems Diagnosis Alcohol withdrawal syndrome with complication Seizure due to alcohol withdrawal, uncomplicated Resolved Hospital Problems Diagnosis Date Noted Date Resolved No resolved problems to display. 1. Alcohol withdrawal syndrome with seizure - had another episode of seizure on 05/10. Was on precedex gtt up until 05/08. - CIWA protocol resumed yesterday - continue folic acid, thiamin, MVT - Need Outpatient alcohol treatment from [facility] program 2. HTN - on nadolol 3. Seizure due to alcohol withdrawal - On CIWA - continue folic acid, thiamin, MVT 4. Pancytopenia possibly from cirrhosis + alcohol abuse 5. Cirrhosis from alcohol complicated by portal HTN/ascites/HE/hyponatremia/pancytopenia - continue lactulose; titrate bowel movement to 2-3/day - outpatient follow up with hepatology - alcohol cessation - was prescribed nadolol and rifaximine but was not taking at home - c/w nadolol and rifaximine - started on low dose lasix and aldactone yesterday 6. Hypomagnesemia. Repleted. DVT Prophylaxis: heparin Diet: General Code Status: Full Code. Disposition: Continue Physical therapy. Anticipate discharge in 1-2 days. Total time of approximately 25 minutes was spent with the patient and/or patient's family, and/or on the patient's floor/unit, of which more than 50% was spent counseling and/or coord ination the patient's care as outlined above. Sandy Valle 05/11/2017 15:34 [facility] Sandy Christian MD - 05/10/2017 12:45 PM PST [facility] Hospitalist Progress Note Shaila Son is a 46 y.o. female INTERVAL HPI: This is a 46 y.o. female past medical history significant for alcohol dependence, history o f of alcohol withdrawal seizure who presents with seizure from alcohol withdrawal. Rapid response was called this am for recurrent episode of seizure. SUBJECTIVE: No acute issues overnight. Rapid response was called this morning. She was found to have se izure like activity and was unresponsive; lasted for few seconds. She was saturating 95% on Ra. HR-86/min, SBP 180s.1 mg of IV ativan given. She started responding and was able to tel l her name; follow commands. No focal weakness noted clinically. VITALS: Temp: 36.4 C (97.5 F), Pulse: 73, Resp: 18, BP: 172/84, SpO2 99 % on room air at flow r ate 6L/min Temp Min: 36 C (96.8 F) Max: 36.7 C (98 F) Weight: 63.5 kg (140 lb) Intake/Output Summary (Last 24 hours) at 05/10/17 1245 Last data filed at 05/10/17 0900 Gross per 24 hour Intake 715 ml Output 1150 ml Net -435 ml PHYSICAL EXAM: Gen Desire - not in acute distress Head - Normocephalic, without obvious abnormality Eyes - PERRL, conjunctiva/corneas clear ENT - mucous membranes moist Neck - supple Lungs - clear to auscultation, no wheezes or rales and unlabored breathing Heart - normal rate, regular rhythm, normal S1, S2 Abdomen - soft, non tender, BS+ Extremities - no peripheral edema, no clubbing or cyanosis Skin - no rashes Neurologic - Confused on and off. No focal deficit clinically. Gait instability. DIAGNOSTIC STUDIES: Available data and images were reviewed personally. Significant results and findings are a ddressed here or in the Assessment and Plan. Recent Results (from the past 24 hour(s)) Basic Metabolic Panel Result Value Ref Range NA 129 (L) 136 - 149 mmol/L K 4.0 3.5 - 5.1 mmol/L CL 105 98 - 109 mmol/L CO2 19 (L) 24 - 31 mmol/L ANION GAP 5 3 - 16 mmol/L GLUCOSE 94 70 - 109 mg/dL BUN 9 7 - 18 mg/dL Creatinine, Serum/Plasma 0.63 0.60 - 1.30 mg/dL eGFR if not >60 >=60 mL/min/1.73m2 CALCIUM 7.6 (L) 8.3 - 10.5 mg/dL BUN/CREA 14.3 Magnesium Result Value Ref Range MG 1.8 1.8 - 2.5 mg/dL Ammonia Result Value Ref Range AMMONIA 55 (H) 11 - 35 umol/L Basic Metabolic Panel Result Value Ref Range NA 129 (L) 136 - 149 mmol/L K 3.9 3.5 - 5.1 mmol/L CL 106 98 - 109 mmol/L CO2 16 (L) 24 - 31 mmol/L ANION GAP 7 3 - 16 mmol/L GLUCOSE 105 70 - 109 mg/dL BUN 9 7 - 18 mg/dL Creatinine, Serum/Plasma 0.76 0.60 - 1.30 mg/dL eGFR if not >60 >=60 mL/min/1.73m2 CALCIUM 7.9 (L) 8.3 - 10.5 mg/dL BUN/CREA 11.8 No results found. Current Facility-Administered Medications: acetaminophen 650 mg Oral Q4H PRN adult multivitamin with minerals/iron 1 tablet Oral Daily artificial tears (PF) 1 drop Both Eyes Q1H PRN renal multivitamin 1 tablet Oral Daily folic acid 1 mg Oral Daily furosemide 20 mg Oral Daily heparin 5,000 Units Subcutaneous 2 times per day lactulose 30 mL Oral 4x Daily LORazepam LORazepam 1-4 mg Oral PRN Or LORazepam 0.5-4 mg Intravenous PRN LORazepam 1 mg Intravenous Once magnesium oxide 400 mg Oral Daily melatonin 3 mg Oral Nightly PRN nadolol 20 mg Oral Daily ondansetron 4 mg Intravenous Q6H PRN pantoprazole 40 mg Intravenous BID senna 8.6 mg Oral BID PRN sodium citrate-citric acid 20 mL Oral BID spironolactone 25 mg Oral Daily thiamine 100 mg Oral Daily ASSESSMENT and PLAN: Active Hospital Problems Diagnosis Alcohol withdrawal syndrome with complication Seizure due to alcohol withdrawal, uncomplicated Resolved Hospital Problems Diagnosis Date Noted Date Resolved No resolved problems to display. 1. Alcohol withdrawal syndrome with seizure - had another episode of seizure today. Was on precedex gtt up until 05/08. - CIWA protocol resumed - continue folic acid, thiamin, MVT - Need Outpatient alcohol treatment from [facility] program 2. HTN - on nadolol 3. Seizure due to alcohol withdrawal - another episode of seizure today. - CIWA resumed 4. Pancytopenia possibly from cirrhosis + alcohol abuse 5. Cirrhosis from alcohol complicated by portal HTN/ascites/HE/hyponatremia/pancytopenia - continue lactulose; titrate bowel movement to 2-3/day - outpatient follow up with hepatology - alcohol cessation - was prescribed nadolol and rifaximine but was not taking at home - resumed nadolol and will resume rifaximine - will start low dose lasix and aldactone 6. Hypomagnesemia. Repleted. DVT Prophylaxis: heparin Diet: General Code Status: Full Code. Disposition: pending clinical course. Continue Physical therapy. Total time of approximately 35 minutes was spent with the patient and/or patient's family, and/or on the patient's floor/unit, of which more than 50% was spent counseling and/or coord ination the patient's care as outlined above. Sandy Valle 05/10/2017 12:45 [facility] Sandy Christian MD - 05/09/2017 5:19 PM PST [facility] Hospitalist Progress Note Shaila Son is a 46 y.o. female INTERVAL HPI: This is a 46 y.o. female past medical history significant for alcohol dependence, history o f of alcohol withdrawal seizure who presents with seizure from alcohol withdrawal. SUBJECTIVE: No acute issues overnight. Reports some abdominal discomfort. VITALS: Temp: 36.7 C (98 F), Pulse: 77, Resp: 16, BP: 172/82, SpO2 99 % on room air at flow rat e 6L/min Temp Min: 36.1 C (96.9 F) Max: 36.9 C (98.4 F) Weight: 63.5 kg (140 lb) Intake/Output Summary (Last 24 hours) at 05/09/17 1719 Last data filed at 05/09/17 1540 Gross per 24 hour Intake 370 ml Output 1370 ml Net -1000 ml PHYSICAL EXAM: Gen Desire - alert, cooperative and no distress, Head - Normocephalic, without obvious abnormality Eyes - PERRL, conjunctiva/corneas clear ENT - mucous membranes moist Neck - supple Lungs - clear to auscultation, no wheezes or rales and unlabored breathing Heart - normal rate, regular rhythm, normal S1, S2 Abdomen - soft, non-tender, without masses or organomegaly Extremities - no peripheral edema, no clubbing or cyanosis Skin - no rashes Neurologic - Confused on and off. No focal deficit clinically. Gait instability. DIAGNOSTIC STUDIES: Available data and images were reviewed personally. Significant results and findings are a ddressed here or in the Assessment and Plan. Recent Results (from the past 24 hour(s)) CBC with Differential Result Value Ref Range WBC 2.4 (LL) 4.0 - 11.0 K/uL RBC 2.90 (L) 3.70 - 5.20 M/uL Hgb 9.2 (L) 11.5 - 16.0 g/dL Hct 26.7 (L) 34.0 - 47.0 % MCV 92.2 83.0 - 101.0 fL MCH 31.8 28.0 - 35.0 pg MCHC 34.5 32.0 - 36.0 g/dL RDW-CV 16.8 (H) <15.0 % Platelet Count 102 (L) 140 - 440 K/uL MPV 8.3 fL % Neutrophils 42.2 (L) 45.0 - 82.0 % % Lymphocytes 30.9 20.0 - 45.0 % % Monocytes 20.3 (H) 4.0 - 12.0 % % Eosinophils 3.7 0.0 - 5.0 % % Basophils 2.9 (H) 0.0 - 1.0 % Absolute Neutrophils 1.00 (L) 1.80 - 8.50 K/uL Absolute Lymphocytes 0.70 0.60 - 3.20 K/uL Absolute Monocytes 0.50 0.00 - 1.00 K/uL Absolute Eosinophils 0.10 0.00 - 0.40 K/uL Absolute Basophils 0.10 0.00 - 0.10 K/uL Basic Metabolic Panel Result Value Ref Range NA 133 (L) 136 - 149 mmol/L K 3.5 3.5 - 5.1 mmol/L CL 107 98 - 109 mmol/L CO2 22 (L) 24 - 31 mmol/L ANION GAP 4 3 - 16 mmol/L GLUCOSE 97 70 - 109 mg/dL BUN 7 7 - 18 mg/dL Creatinine, Serum/Plasma 0.59 (L) 0.60 - 1.30 mg/dL eGFR if not >60 >=60 mL/min/1.73m2 CALCIUM 8.0 (L) 8.3 - 10.5 mg/dL BUN/CREA 11.9 Magnesium Result Value Ref Range MG 1.0 (L) 1.8 - 2.5 mg/dL No results found. Current Facility-Administered Medications: acetaminophen 650 mg Oral Q4H PRN artificial tears (PF) 1 drop Both Eyes Q1H PRN folic acid 1 mg Oral Daily heparin 5,000 Units Subcutaneous 2 times per day lactulose 30 mL Oral BID magnesium sulfate 4 g Intravenous Once melatonin 3 mg Oral Nightly PRN multivitamin 1 tablet Oral Daily nadolol 20 mg Oral Daily ondansetron 4 mg Intravenous Q6H PRN pantoprazole 40 mg Intravenous BID senna 8.6 mg Oral BID PRN thiamine 100 mg Oral Daily ASSESSMENT and PLAN: Active Hospital Problems Diagnosis Alcohol withdrawal syndrome with complication Seizure due to alcohol withdrawal, uncomplicated Resolved Hospital Problems Diagnosis Date Noted Date Resolved No resolved problems to display. 1. Alcohol withdrawal syndrome with seizure - resolving - no further episode of seizure - precedex drip stopped on 05/08 am. - Outpatient alcohol treatment from [facility] 2. HTN - on nadolol - will add lisinopril 3. Seizure due to alcohol withdrawal, uncomplicated No seizure activity thus far 4. Pancytopenia possibly from cirrhosis + alcohol abuse 5. Cirrhosis from alcohol complicated by portal HTN/ascites/HE/hyponatremia/pancytopenia - continue lactulose - outpatient follow up with hepatology - alcohol cessation - was prescribed nadolol and rifaximine but was not taking at home 6. Hypomagnesemia. Repleted. DVT Prophylaxis: heparin Diet: General Code Status: Full Code. Disposition: Continue Physical therapy. Anticipate discharge tomorrow Total time of approximately 25 minutes was spent with the patient and/or patient's family, and/or on the patient's floor/unit, of which more than 50% was spent counseling and/or coord ination the patient's care as outlined above. Sandy Valle 05/09/2017 17:19 [facility] Sandy Christian MD - 05/08/2017 8:16 PM PST [facility] Hospitalist Progress Note Shaila Son is a 46 y.o. female INTERVAL HPI: This is a 46 y.o. female past medical history significant for alcohol dependence, history o f of alcohol withdrawal seizure who presents with seizure from alcohol withdrawal. . SUBJECTIVE: She was transferred from ICU yesterday. Precedex was stopped yesterday am. Lying comfortabl y in bed. Denies any complains. VITALS: Temp: 36.1 C (96.9 F), Pulse: 79, Resp: 16, BP: 133/70, SpO2 99 % on room air at flow r ate 6L/min Temp Min: 36.1 C (96.9 F) Max: 37.4 C (99.3 F) Weight: 63.5 kg (140 lb) Intake/Output Summary (Last 24 hours) at 05/08/172015 Last data filed at 05/08/17 1551 Gross per 24 hour Intake 798 ml Output 3350 ml Net -2552 ml PHYSICAL EXAM: Gen Desire - alert, cooperative and no distress, Head - Normocephalic, without obvious abnormality Eyes - PERRL, conjunctiva/corneas clear ENT - mucous membranes moist Neck - supple Lungs - clear to auscultation, no wheezes or rales and unlabored breathing Heart - normal rate, regular rhythm, normal S1, S2, no murmurs, rubs, clicks or gallops Abdomen - soft, non-tender, without masses or organomegaly Extremities - no peripheral edema, no clubbing or cyanosis Skin - no rashes Neurologic - Alert and oriented x 3. No focal deficit clinically DIAGNOSTIC STUDIES: Available data and images were reviewed personally. Significant results and findings are a ddressed here or in the Assessment and Plan. Recent Results (from the past 24 hour(s)) CBC no Differential Result Value Ref Range WBC 2.8 (L) 4.0 - 11.0 K/uL RBC 2.76 (L) 3.70 - 5.20 M/uL Hgb 8.7 (L) 11.5 - 16.0 g/dL Hct 25.4 (L) 34.0 - 47.0 % MCV 91.8 83.0 - 101.0 fL MCH 31.5 28.0 - 35.0 pg MCHC 34.3 32.0 - 36.0 g/dL RDW-CV 16.8 (H) <15.0 % Platelet Count 89 (L) 140 - 440 K/uL MPV 8.2 fL Extra Green Top Tube Result Value Ref Range Extra Green Top Tube Done Occult Blood, Stool, Specimen 1 Result Value Ref Range STOOL OCCULT BLOOD X1 Negative No results found. Current Facility-Administered Medications: acetaminophen 650 mg Oral Q4H PRN artificial tears (PF) 1 drop Both Eyes Q1H PRN carvedilol 12.5 mg Oral BID folic acid 1 mg Oral Daily heparin 5,000 Units Subcutaneous 2 times per day lactulose 30 mL Oral BID melatonin 3 mg Oral Nightly PRN multivitamin 1 tablet Oral Daily ondansetron 4 mg Intravenous Q6H PRN pantoprazole 40 mg Intravenous BID senna 8.6 mg Oral BID PRN thiamine 100 mg Oral Daily ASSESSMENT and PLAN: Active Hospital Problems Diagnosis Alcohol withdrawal syndrome with complication Seizure due to alcohol withdrawal, uncomplicated Resolved Hospital Problems Diagnosis Date Noted Date Resolved No resolved problems to display. 1. Alcohol withdrawal syndrome with seizure - resolving - no further episode of seizure - precedex drip stopped yesterday morning 2. HTN - better controlled with coreg. Will switch to nadolol. 3. Seizure due to alcohol withdrawal, uncomplicated No seizure activity thus far 4. Pancytopenia possibly from cirrhosis + alcohol abuse 5. 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 Disposition: PT/OT consult Total time of approximately 35 minutes was spent with the patient and/or patient's family, and/or on the patient's floor/unit, of which more than 50% was spent counseling and/or coord ination the patient's care as outlined above. Sandy Valle 05/08/2017 20:16 [facility] Grant Mayfield MD - 05/07/2017 7:06 PM PST [facility] PMG Hospitalist Progress Note Shaila Son is a 46 y.o. female ASSESSMENT and PLAN: Active Hospital Problems Alcohol withdrawal syndrome with complication Patient had Precedex discontinued this a.m. of 5:30 am. Patient initially had some increas e in heart rate with increased blood pressure. She has a chronic history of hypertension an d carvedilol was initiated to lower portal pressures. She tolerated 6.25 mg dose and was co nverted 12.5 mg twice daily. Seizure due to alcohol withdrawal, uncomplicated No seizure activity thus far Elevated ammonia level Continue twice a day dosing with lactulose SUBJECTIVE: The patient currently more alert and requesting food. She denies nausea or other problem s. VITALS: Temp: 37.6 C (99.7 F), Pulse: 93, Resp: 18, BP: (!) 173/93, SpO2 100 % on room air at f low rate 6L/min Temp Min: 36.7 C (98.1 F) Max: 37.6 C (99.7 F) Weight: 63.5 kg (140 lb) Intake/Output Summary (Last 24 hours) at 05/07/17 1906 Last data filed at 05/07/17 1707 Gross per 24 hour Intake 2219.5 ml Output 3800 ml Net -1580.5 ml PHYSICAL EXAM: Cardiovascular: Regular rate and rhythm Respiratory: Clear bilaterally Abdomen: Moderate protuberance but soft; mildly suspicious for ascites Patient ambulates with minimal instability. She states when she feels unstable she has a w alker at home. Her gait is slightly wide-based and somewhat consistent with cerebellar dege neration albeit not severe DIAGNOSTIC STUDIES: Available data and images were reviewed personally. Significant results and findings are a ddressed here or in the Assessment and Plan. Lab Results Component Value Date HGB 8.4 (L) 05/07/2017 HCT 25.7 (L) 05/07/2017 PLT 80 (L) 05/07/2017 WBC 2.1 (LL) 05/07/2017 Lab Results Component Value Date NA 130 (L) 05/07/2017 K 4.0 05/07/2017 CL 108 05/07/2017 CO2 18 (L) 05/07/2017 CREA 0.54 (L) 05/07/2017 BUN 5 (L) 05/07/2017 MG 1.9 05/06/2017 PHOS 5.1 (H) 11/07/2016 BNP 1,644 (H) 11/01/2016 No results found for: POCGLU No results found for: POCGLU No results found. Total time of approximately 30 minutes was spent with the patient and/or patient's family, and/or on the patient's floor/unit, of which more than 50% was spent counseling and/or coord ination the patient's care as outlined above. Grant Lomas 05/07/2017 19:06 [facility] Portions of this chart may have been created with [employer] voice recognition software. Occasi onal wrong-word or sound-alike substitutions may have occurred due to the inherent gallardo itations of voice recognition software. Please read the chart carefully and recognize, using context, where these substitutions have occurred Renetta Chang PharmD - 05/07/2017 1:53 PM PST PHARMACY SERVICES: ADMISSION MEDICATION REVIEW Shaila Son is a 46 y.o. female admitted on 05/03/17. Patient is not a reliable historian. Location of Patient when reviewed: ED X Medical Floor Patient s prior to admit medication and over the counter (OTC) medications/herbal supplem ents list obtained from: X Verbal interview X Patient UNABLE to recall name, strength, and direction X Pharmacy list names: [facility] pharmacy X Outside Information X Other sources: Phone interview with sisterAnette Vaccines up to date? Yes No Unsure Influenza x Pneumococcal x Tdap x Shingles x Noted medications discrepancies or medication-related issues: Medication added: Medication: Prior to Admission Sig: Nadolol 20 mg tab 1 tab by mouth nightly Multiple vitamin-mineral tab 1 tab by mouth daily Rifaximin 550 mg tab 1 tab by mouth twice daily to prevent rise in ammonia Thiamin 100 mg tab 1 tab by mouth daily Lidocaine 5% patch 1 patch topically to affected area. Apply for 12 hours, then remove for 12 hours Recreational Substances , Tobacco & Alcohol use : Drug: Route Frequency: Last Used: Alcohol 6 to 9 beers daily 05/03/17 Other: Per Anette, patient has the medications at home but has not started any of them. Anette greene s tried to encourage patient to take them however patient has been refusing. Medication review performed and electronically signed by Neisha Salinas, Rehabilitation Inspector 12:21 Renetta Car 05/07/2017 13:53 Grant Mayfield MD - 05/07/2017 9:59 AM PST [facility] PMG Hospitalist Progress Note Shaila Son is a 46 y.o. female ASSESSMENT and PLAN: Active Hospital Problems Alcohol withdrawal syndrome with complication Patient doing very well on Precedex for withdrawal. Alcohol was 99 mg/dl at 9:30 PM on 04/10 that she is now greater than 72 hours out. No seizures with alcohol Withdrawal. Discussed the situation with the patient. She has been in outpatient treatment and would d o best with inpatient treatment given her persistent failures. We'll request case managemen t to inquire with respect to inpatient treatment. Seizure due to alcohol withdrawal, uncomplicated No seizure activity thus far Elevated ammonia level We'll reduce to twice a day dosing with lactulose SUBJECTIVE: The patient currently more alert and requesting food. She denies nausea or other problem s. VITALS: Temp: 37 C (98.6 F), Pulse: 78, Resp: 21, BP: 145/71, SpO2 100 % on room air at flow ra te 6L/min Temp Min: 36.7 C (98 F) Max: 37.4 C (99.3 F) Weight: 63.5 kg (140 lb) Intake/Output Summary (Last 24 hours) at 05/07/17 0959 Last data filed at 05/07/17 0944 Gross per 24 hour Intake 4252.5 ml Output 2950 ml Net 1302.5 ml PHYSICAL EXAM: Cardiovascular: Regular rate and rhythm Respiratory: Clear bilaterally Abdomen: Moderate protuberance but soft; mildly suspicious for ascites Patient ambulates with minimal instability. She states when she feels unstable she has a w alker at home. Her gait is slightly wide-based and somewhat consistent with cerebellar dege neration albeit not severe DIAGNOSTIC STUDIES: Available data and images were reviewed personally. Significant results and findings are a ddressed here or in the Assessment and Plan. Lab Results Component Value Date HGB 8.4 (L) 05/07/2017 HCT 25.7 (L) 05/07/2017 PLT 80 (L) 05/07/2017 WBC 2.1 (LL) 05/07/2017 Lab Results Component Value Date NA 130 (L) 05/07/2017 K 4.0 05/07/2017 CL 108 05/07/2017 CO2 18 (L) 05/07/2017 CREA 0.54 (L) 05/07/2017 BUN 5 (L) 05/07/2017 MG 1.9 05/06/2017 PHOS 5.1 (H) 11/07/2016 BNP 1,644 (H) 11/01/2016 No results found for: POCGLU No results found for: POCGLU No results found. Total time of approximately 30 minutes was spent with the patient and/or patient's family, and/or on the patient's floor/unit, of which more than 50% was spent counseling and/or coord ination the patient's care as outlined above. Grant Lomas 05/07/2017 9:59 [facility] Portions of this chart may have been created with [employer] voice recognition software. Occasi onal wrong-word or sound-alike substitutions may have occurred due to the inherent gallardo itations of voice recognition software. Please read the chart carefully and recognize, using context, where these substitutions have occurred arker, Grant Pardo MD - 0 05/06/2017 9:57 AM PST [facility] PMG Hospitalist Progress Note Shaila Son is a 46 y.o. female ASSESSMENT and PLAN: Active Hospital Problems Alcohol withdrawal syndrome with complication Patient doing very well on Precedex for withdrawal. Alcohol was 99 mg/dl at 9:30 PM on 04/10 5 thus this evening she will be at 3 days post discontinuance and thus the plan will be to w phuc from Precedex tomorrow a.m. Seizure due to alcohol withdrawal, uncomplicated No seizure activity thus far Elevated ammonia level We'll reduce to twice a day dosing with lactulose SUBJECTIVE: The patient currently more alert and requesting food. She denies nausea or other problem s. VITALS: Temp: 36.8 C (98.2 F), Pulse: 86, Resp: 16, BP: 115/61, SpO2 100 % on room air at flow rate 6L/min Temp Min: 36 C (96.8 F) Max: 36.8 C (98.2 F) Weight: 63.5 kg (140 lb) Intake/Output Summary (Last 24 hours) at 05/06/17 0957 Last data filed at 05/06/17 0900 Gross per 24 hour Intake 1754 ml Output 1800 ml Net -46 ml PHYSICAL EXAM: Cardiovascular: Regular rate and rhythm Respiratory: Clear bilaterally Abdomen: Moderate protuberance but soft; mildly suspicious for ascites Extremities: Chronic scarring possibly from falls versus venous stasis but no edema Neurologic: Patient moving all 4 extremities with appropriate responses to questions DIAGNOSTIC STUDIES: Available data and images were reviewed personally. Significant results and findings are a ddressed here or in the Assessment and Plan. Lab Results Component Value Date HGB 8.5 (L) 05/06/2017 HCT 26.1 (L) 05/06/2017 PLT 61 (L) 05/06/2017 WBC 1.6 (LL) 05/06/2017 Lab Results Component Value Date NA 128 (L) 05/06/2017 K 4.6 05/06/2017 CL 106 05/06/2017 CO2 20 (L) 05/06/2017 CREA 0.52 (L) 05/06/2017 BUN 6 (L) 05/06/2017 MG 1.9 05/06/2017 PHOS 5.1 (H) 11/07/2016 BNP 1,644 (H) 11/01/2016 No results found for: POCGLU No results found for: POCGLU No results found. Total time of approximately 30 minutes was spent with the patient and/or patient's family, and/or on the patient's floor/unit, of which more than 50% was spent counseling and/or coord ination the patient's care as outlined above. Grant Lomas 05/06/2017 9:57 [facility] Portions of this chart may have been created with [employer] voice recognition software. Occasi onal wrong-word or sound-alike substitutions may have occurred due to the inherent gallardo itations of voice recognition software. Please read the chart carefully and recognize, using context, where these substitutions have occurred Grant Mayfield MD - 0 05/05/2017 8:22 AM PST [facility] PMG Hospitalist Progress Note Shaila Son is a 46 y.o. female ASSESSMENT and PLAN: Active Hospital Problems Alcohol withdrawal syndrome with complication Patient required significant Ativan overnight receiving over 65 mg since midnight with visu al hallucinosis reported. At this point I'm going to start Precedex 0.5 mcg/kg load then 0. 2-1.5 mcg/kg/hr. No evidence of seizure activity overnight. The patient has no ocular motor findings on exam. We'll initiate lactulose with a elevated ammonia and continue current IV s pending lab results currently not available Seizure due to alcohol withdrawal, uncomplicated No seizure activity thus far SUBJECTIVE: The patient currently is not verbalizing but is getting to the commode and back the rowan tance of the COSTUME MISTRESS. She has no ocular motor findings and has uncertain rigidity of her neck. VITALS: Temp: 36.5 C (97.7 F), Pulse: 101, Resp: 18, BP: (!) 157/95, SpO2 99 % on room air at f low rate L/min Temp Min: 35.8 C (96.4 F) Max: 37.4 C (99.3 F) Weight: 63.5 kg (140 lb) Intake/Output Summary (Last 24 hours) at 05/05/17 0824 Last data filed at 05/05/17 0547 Gross per 24 hour Intake 2203 ml Output 1700 ml Net 503 ml PHYSICAL EXAM: Cardiovascular: Regular rate and rhythm Respiratory: Clear bilaterally Abdomen: Moderate protuberance but soft; mildly suspicious for ascites Extremities: Chronic scarring possibly from falls versus venous stasis but no edema Neurologic: Patient moving all 4 extremities but not verbalizing. DIAGNOSTIC STUDIES: Available data and images were reviewed personally. Significant results and findings are a ddressed here or in the Assessment and Plan. Lab Results Component Value Date HGB 9.6 (L) 05/04/2017 HCT 29.3 (L) 05/04/2017 PLT 49 (L) 05/04/2017 WBC 3.1 (L) 05/04/2017 Lab Results Component Value Date NA 132 (L) 05/04/2017 K 4.0 05/04/2017 CL 102 05/04/2017 CO2 22 (L) 05/04/2017 CREA 0.43 (L) 05/04/2017 BUN 4 (L) 05/04/2017 MG 1.3 (L) 05/03/2017 PHOS 5.1 (H) 11/07/2016 BNP 1,644 (H) 11/01/2016 No results found for: POCGLU No results found for: POCGLU No results found. Total time of approximately 30 minutes was spent with the patient and/or patient's family, and/or on the patient's floor/unit, of which more than 50% was spent counseling and/or coord ination the patient's care as outlined above. Grant Lomas 05/05/2017 8:24 [facility] Portions of this chart may have been created with [employer] voice recognition software. Occasi onal wrong-word or sound-alike substitutions may have occurred due to the inherent gallardo itations of voice recognition software. Please read the chart carefully and recognize, using context, where these substitutions have occurred arker, Grant Pardo MD - 0 05/04/2017 6:18 PM PST [facility] PMG Hospitalist Progress Note Shaila Son is a 46 y.o. female ASSESSMENT and PLAN: Active Hospital Problems Alcohol withdrawal syndrome with complication Patient currently doing well with respect to control of withdrawal symptoms. Sodium is 132 but I want to prevent hyperchloremic acidosis and I'm going to have her half-normal saline with 40 of KCl expecting her to have some potassium wasting. Check labs in the a.m. Seizure due to alcohol withdrawal, uncomplicated Follow the patient with lorazepam. She has routine dosing which will be used also for seiz ure prophylaxis in lieu of a anticonvulsant. SUBJECTIVE: The patient denies too much shakiness or other complaints. She denies increasing abdomin al distention recently. VITALS: Temp: 37.4 C (99.3 F), Pulse: 92, Resp: 14, BP: (!) 163/92, SpO2 96 % on room air at fl ow rate L/min Temp Min: 37.2 C (99 F) Max: 37.4 C (99.3 F) Weight: 63.5 kg (140 lb) Intake/Output Summary (Last 24 hours) at 05/04/17 1818 Last data filed at 05/04/17 1738 Gross per 24 hour Intake 383 ml Output 800 ml Net -417 ml PHYSICAL EXAM: Cardiovascular: Regular rate and rhythm Respiratory: Clear bilaterally Abdomen: Moderate protuberance but soft; mildly suspicious for ascites Extremities: Chronic scarring possibly from falls versus venous stasis but no edema DIAGNOSTIC STUDIES: Available data and images were reviewed personally. Significant results and findings are a ddressed here or in the Assessment and Plan. Lab Results Component Value Date HGB 9.6 (L) 05/04/2017 HCT 29.3 (L) 05/04/2017 PLT 49 (L) 05/04/2017 WBC 3.1 (L) 05/04/2017 Lab Results Component Value Date NA 132 (L) 05/04/2017 K 4.0 05/04/2017 CL 102 05/04/2017 CO2 22 (L) 05/04/2017 CREA 0.43 (L) 05/04/2017 BUN 4 (L) 05/04/2017 MG 1.3 (L) 05/03/2017 PHOS 5.1 (H) 11/07/2016 BNP 1,644 (H) 11/01/2016 No results found for: POCGLU No results found for: POCGLU No results found. Total time of approximately 30 minutes was spent with the patient and/or patient's family, and/or on the patient's floor/unit, of which more than 50% was spent counseling and/or coord ination the patient's care as outlined above. Grant Lomas 05/04/2017 18:18 [facility] Portions of this chart may have been created with [employer] voice recognition software. Occasi onal wrong-word or sound-alike substitutions may have occurred due to the inherent gallardo itations of voice recognition software. Please read the chart carefully and recognize, using context, where these substitutions have occurred documented in this enc ounter H&P Notes Hossein Givens MD - 05/03/2017 10:27 PM PST [facility] HISTORY AND PHYSICAL Pt. Name/Age/: Shaila Son 46 y.o. 1970 Date of admission: 05/03/2017 Admitting Physician: Hossein Givens MD Primary Care Provider: Trixie Rose PA-C CHIEF COMPLAINT: Seizure HISTORY OF PRESENT ILLNESS: This is a 46 y.o. female past medical history significant for alcohol dependence, history o f of alcohol withdrawal seizure who presents with Seizure. Friend at bedside assisting gaetano h the history. Patient had a seizure yesterday at home lying in bed. Patient's friend note d that patient had shaking rigidity in bed. She bit her tongue. He took her to an outside hospital ED in which she was evaluated. Patient was given beer and discharged home. Conrado martínez had another seizure at home and friend gave her some more beer and brought her to ER. Pat jesus states she drinks about 12 beers per day. She cannot remember the last time she has be en sober. Friend has known the patient for several years and states that she's been drinkin g daily. Patient does note that she has a history of cirrhosis. She denies having dark sto ols and/or vomiting. She does note some epigastric abdominal pain. She denies fever and or cough. PAST MEDICAL and SURGICAL HISTORY: Past Medical History: Diagnosis Date Alcoholism (HCC) Anemia Cirrhosis, alcoholic (HCC) Hypertension Seizures (HCC) Past Surgical History: Procedure Laterality Date Back fusion 2015 FAMILY HISTORY: family history is not on file. SOCIAL HISTORY: reports that she has quit smoking. She has never used smokeless tobacco. She reports that she drinks about 3.6 oz of alcohol per week . She reports that she does not use drugs. REVIEW OF SYSTEMS: All systems were reviewed and were negative unless otherwise stated in HPI HOME MEDICATIONS: Previous Medications No medications on file ALLERGIES: Allergies Allergen Reactions Ciprofloxacin Anaphylaxis Sulfamethoxazole-Trimethoprim Anaphylaxis Ibuprofen Hives Pt also has liver failure VITAL SIGNS: Temp: 37.2 C (99 F), Pulse: 100, Resp: 16, BP: (!) 157/92, SpO2 95 % on room air at shahla w rate L/min Temp Min: 37.2 C (99 F) Max: 37.2 C (99 F) Weight: 63.5 kg (140 lb) PHYSICAL EXAMINATION: Gen Desire - alert, cooperative and no distress Head - Normocephalic, without obvious abnormality, atraumatic Eyes - PERRL, conjunctiva/corneas clear, EOM's intact both eyes ENT - mucous membranes moist Neck - supple Lungs - CTA bilat Heart - normal rate, rhythm w/o m/r/g Abdomen - obese Dilated umbilical veins, + epigastric tenderness Normoactive bowel s ounds, Extremities -+ tremors in both hands no peripheral edema, no clubbing or cyanosis Skin - dry skin Neurologic - Alert and oriented to person, place, & situation. CN II-XII intact. stren gth- moves all extremities DIAGNOSTIC STUDIES: Available data and images were reviewed personally. Significant results and findings are a ddressed here or in the Assessment and Plan. Lab Results Component Value Date HGB 10.7 (L) 05/03/2017 HCT 32.7 (L) 05/03/2017 PLT 57 (L) 05/03/2017 WBC 3.9 (L) 05/03/2017 Lab Results Component Value Date NA 131 (L) 05/03/2017 K 3.4 (L) 05/03/2017 CL 99 05/03/2017 CO2 23 (L) 05/03/2017 CREA 0.40 (L) 05/03/2017 BUN 4 (L) 05/03/2017 MG 1.3 (L) 05/03/2017 PHOS 5.1 (H) 11/07/2016 BNP 1,644 (H) 11/01/2016 No results found for: POCGLU No results found. EKG: Reviewed independently by me. The tracing shows ASSESSMENT and PLAN: Active Hospital Problems Diagnosis Alcohol withdrawal syndrome with complication Seizure due to alcohol withdrawal, uncomplicated Resolved Hospital Problems Diagnosis No resolved problems to display. Alcohol withdrawal syndrome: complicated by alcohol withdrawal seizures. [place] protocol. Will schedule ativan 2mg every 6 hours. Will give additional ativan for withdrawal seizure s. Epigastric pain- Concern for gastritis. Will start ppi bid. She had not had endoscopy t o evaluate for varices. IVF. Hypokalemia-replete potassium. Hypomagnesemia: Repleted magnesium: We'll give pat ient general diet DVT Prophylaxis Heparin SC Code Status Full code CMS Documentation I certify that this admission will likely be greater than 2 midnights and posthospital disc harge will be to home Total of 74 minutes were required to complete the admission process. Electronically signed by: Hossein Givens MD 05/03/2017 22:27 [facility] documented in this enc [facility] ED Notes Geovanny Rock MD - 05/03/2017 9:19 PM PSTFormatting of this note might be different fro m the original. eMERGENCY dEPARTMENT eNCOUnter CHIEF COMPLAINT Chief Complaint Patient presents with Seizure (Adult - Alcoholic) HPI Shaila Son is a 46 y.o. female who presents because of recurrent alcohol withdrawa l seizures and delirium tremens. Patient is an alcoholic with cirrhosis. She has had previou s alcohol withdrawal seizures. She has not been drinking alcohol over the last couple of day s. She had a seizure at 1130 this morning and went to [facility] emergency department in [facility] where she lives. She is accompanied by a friend sienna who states that the y gave her a beer and a shot of something to help with the seizures. She was then discharged without any further workup with the diagnosis on her discharge paperwork of alcohol withdra wal seizure and delirium tremens. She was not provided with any discharge medications for se izures. She had another seizure at home around 530 p.m. Her friend then decided to drive her up to [place] for further evaluation. Patient has had some nausea and vomiting and epig astric pain over the last couple of days as well but no hematemesis or hematochezia. Patient 's friend gave her another beer after her most recent seizure to help prevent further seizur es. She normally drinks 6-12, 16 ounce beers a day. PAST MEDICAL HISTORY Past Medical History: Diagnosis Date Alcoholism (HCC) Anemia Cirrhosis, alcoholic (HCC) Hypertension Seizures (HCC) SURGICAL HISTORY Past Surgical History: Procedure Laterality Date Back 2015 CURRENT MEDICATIONS Previous Medications No medications on file ALLERGIES Allergies Allergen Reactions Ciprofloxacin Anaphylaxis Sulfamethoxazole-Trimethoprim Anaphylaxis Ibuprofen Hives Pt also has liver failure FAMILY HISTORY History reviewed. No pertinent family history. SOCIAL HISTORY Social History Social History Marital status: Single Spouse name: N/A Number of children: N/A Years of education: N/A Social History Main Topics Smoking status: Former Smoker Smokeless tobacco: Never Used Alcohol use 3.6 oz/week 6 Cans of beer per week Comment: alcoholism, currently drinks 6 cans of beer daily Drug use: No Sexual activity: Not Asked Other Topics Concern None Social History Narrative None REVIEW OF SYSTEMS A 12 system review of systems is otherwise negative except as noted in the HPI above. PHYSICAL EXAM VITAL SIGNS: (first vital signs):Temp: 37.2 C (99 F) Pulse: 106 Resp: 16 SpO2: 99 % BP: (!) 164/100 Constitutional: Well developed, Well nourished, No acute distress, Non-toxic appearance. HENT: Normocephalic, Atraumatic, Bilateral external ears normal, Oral mucosa moist, manager search ior pharynx no exudates, Nose normal. Neck-supple, nontender, no meningismus, No stridor. Eyes: PERRL, EOMI, Conjunctiva normal, No discharge. Respiratory: Breath sounds equal bilaterally, no adventitious sounds, No chest wall tender ness. Cardiovascular: Normal rate, normal S1, S2, no murmurs, rubs, or gallops GI: Abdomen soft, non-tender, non-distended, normal bowel sounds, no CVA tenderness : Musculoskeletal: Intact distal pulses, No edema, No tenderness, No cyanosis. Good range of motion in all major joints. No tenderness to palpation or major deformities noted. Back- No tenderness. Skin: Warm, Dry, No erythema, No rash or lesions. Lymphatic: Neurologic: Alert & oriented x 3, Cranial nerves II-XII intact, Normal sensation, motor, a nd strength in all four extremities, No focal deficits noted. Psychiatric: Affect flat, Judgment normal, Mood normal. Labs Reviewed CBC WITH DIFFERENTIAL - Abnormal; Notable for the following: Result Value WBC 3.9 (*) RBC 3.59 (*) Hgb 10.7 (*) Hct 32.7 (*) RDW-CV 16.2 (*) Platelet Count 57 (*) % Lymphocytes 9.0 (*) Absolute Lymphocytes 0.30 (*) All other components within normal limits COMPREHENSIVE METABOLIC PANEL - Abnormal; Notable for the following: NA 131 (*) K 3.4 (*) CO2 23 (*) BUN 4 (*) Creatinine, Serum/Plasma 0.40 (*) CALCIUM 7.9 (*) ALBUMIN 2.1 (*) AST 98 (*) ALK PHOS 147 (*) GLOBULIN 4.0 (*) Albumin/Globulin ratio 0.5 (*) All other components within normal limits MAGNESIUM - Abnormal; Notable for the following: MG 1.3 (*) All other components within normal limits LIPASE - Normal ALCOHOL - Normal RADIOLOGY CT Results: No results found. ED COURSE & MEDICAL DECISION MAKING Pertinent Labs & Imaging studies reviewed. (See chart for details) Patient presented with [facility] alcohol withdrawal syndrome including seizures and delirium tremens. IV was established and she was given lorazepam and banana bag. Laboratory evaluati on showed a potassium of 3.4 and magnesium of 1.3. Patient had mild to moderate pancytopenia , likely secondary to cirrhosis. She'll be admitted for further inpatient management of brice re alcohol withdrawal syndrome. Last Set of Vital Signs: Temp: 37.2 C (99 F) Pulse: 119 Resp: 16 SpO2: 97 % BP: 146/78 FINAL IMPRESSION 1. Alcohol withdrawal seizure with delirium (HCC) 2. Hypomagnesemia 3. Alcohol withdrawal syndrome with complication (HCC) PLAN inpatient admission Geovanny Rock MD 05/04/17 0052 Yumiko Lawson R N - 05/03/2017 8:38 PM PSTPatient has alcohol related seizures. Had one in [place] this a m and was taken to health care facility there. Was given beer and maybe a med. No meds descr ibed in discharge instructions. Had 2 more seizures today after that event. Friend brought her here and said he gave her some more beer this evening to chris off seizures.Electronicall y signed by Yumiko Hurst RN at 05/03/2017 8:42 PM PSTdocumented in this encounter Miscellaneous Notes Plan of Care - Alicia Baker RN - 05/12/2017 4:44 PM PSTProblem: Discharge Planning Goal: Patient will be discharged in a safe manner Outcome: Goal Achieved Date Met: 05/12/17 This CM met with both the patient and her significant other of 7 years this AM to confirm d /c plan. They have called the patient's relative, Olman Willoughby, who will be coming from [place] to pick patient up some time today. They wished to have the new scripts faxed to [place] [facility] which was done. Faxed the lab order script and new RX scripts plus d/c summary to [facility], f# [phone], as well since she is seen by this clinic. Copies of the new scripts and the lab script placed in the ghost chart. All fax transmissions with + confirmations placed in ghost chart. This CM also left message with Ilana, from the [facility] program letting her know that mayco ent is being discharged today. Dispo: Patient being discharged home and will be followed up by Ilana, from [facility], who is working on her OP drug and alcohol treatment. Relative is coming to take both her and her significant other home since neither of them dr casey or have a vehicle. Electronically signed by: Alicia Baker RN 05/12/2017 16:44 lan of Alicia - Cristy Barajas RN - 05/12/2017 5:26 AM PSTProblem: Patient Care Overview (Adult) Goal: Care Team Goals & Evaluation PROBLEM-RELATED GOALS: 1. Shaila will be free of seizures by 05/07 2. Shaila will be free of injury by 05/07 3. Shaila will have CIWA WNL by 05/07 4. Pt will be mod I with ambulation in hallway by 05/11/17 STRATEGY TO ACHIEVE GOALS: 1. Monitor for seizure activity. Padded bed rails in place 2. Follow CIWA protocol 3. Fall Precautions, up with standby assist. 4. Pt will participate in PT activities. RESTRAINT-RELATED GOALS: STRATEGIES TO ACHIEVE RESTRAINT GOALS: Outcome: Unchanged Goal Evaluation: CIWA scoring <3 overnight. No seizure activity so far this shift. Denies pain. No falls; u p in orr walking with supervision several times overnight. SO at bedside. Will continue to monitor. lan of Teresa Henao RN - 05/11/2017 5:43 PM PSTProblem: Patient Care Overview (Adult) Goal: Care Team Goals & Evaluation PROBLEM-RELATED GOALS: 1. Shaila will be free of seizures by 05/07 2. Shaila will be free of injury by 05/07 3. Shaila will have CIWA WNL by 05/07 4. Pt will be mod I with ambulation in hallway by 05/11/17 STRATEGY TO ACHIEVE GOALS: 1. Monitor for seizure activity. Padded bed rails in place 2. Follow CIWA protocol 3. Fall Precautions, up with standby assist. 4. Pt will participate in PT activities. RESTRAINT-RELATED GOALS: STRATEGIES TO ACHIEVE RESTRAINT GOALS: Outcome: Improving Goal Evaluation: Shaila's denies any pain, n/v, CIWA less than 10, MG replaced, IV sl, voids without difficul ty, bowel movement today, significant other at bedside, calls appropriately and makes needs known. lan of Care - Paulina Johnson, OT - 05/11/2017 4:49 PM PST Problem: Patient Care Overview (Adult) Goal: Care Team Goals & Evaluation PROBLEM-RELATED GOALS: 1. Shaila will be free of seizures by 05/07 2. Shaila will be free of injury by 05/07 3. Shaila will have CIWA WNL by 05/07 4. Pt will be mod I with ambulation in hallway by 05/11/17 STRATEGY TO ACHIEVE GOALS: 1. Monitor for seizure activity. Padded bed rails in place 2. Follow CIWA protocol 3. Fall Precautions, up with standby assist. 4. Pt will participate in PT activities. RESTRAINT-RELATED GOALS: STRATEGIES TO ACHIEVE RESTRAINT GOALS: Outcome: Improving Occupational Therapy Plan of Care Treatment, Discharge Note Summary: Shaila has been participating in occupational therapy for treatment of Impaired f unctional mobility, safety, act santy post alcohol withdrawl seizure. Hx significant for hyper tension and alcohol abuse. . Emphasis of session included in room mobilization; light there x; fxl mobility. Patient demonstrates progress towards functional goals as evidenced by has met acute OT goals; pt is mobilizing w/o assistive device and improved balance; able to com plete ADLs. Remaining barriers to discharge and functional limitations include needs furthe r inpatient treatment of ETOH; would benefit from a structured living environment. No furth er need of acute OT. Shaila will benefit from continued therapeutic intervention to address ongoing impairments an d increase safety and independence with activities necessary for safe discharge. Refer pamella self for specific details regarding functional levels. Occupational Therapy Discharge Recommendations are: Recommended discharge disposition: intermediate facility, home with assist, [facility] Post discharge occupational therapy recommendation: (assess as needed) Equipment Recommendations: (TBD post SNF stay. ) Planned Interventions:ADL retraining, transfer training, strengthening Recommended Frequency: 4 times/wk Patient Status/Goals: Reflects last filed data and may be from multiple contributors. ADLs Per RN, pt has been up in her room folding clothes. Pt exhibits unsteadiness w/ long dista nce ambulation but no LOB. She is mobilizing in her room w/o device. UB Dressing, Level of Slade: modified independent LB Dressing, Level of Slade: modified independent Groomed in standing c supervision and set up. Grooming, Level of Slade: modified independent Assistive Device: none Grooming Assess/Train, Position: standing Grooming Assess/Train, Impairments: strength decreased Therapeutic Exercise Reviewed HEP and pt was left in room completing active therex activities w/ good technique. Functional Endurance Good for activities presented. Tolerated increased distance w/ ambulation. Cognitive Slow to respond but appropriate. Mood/Behavior: calm, cooperative, flat affect Personal Safety: mild impairment, decreased insight to deficits Bed Mobility Assistive Device: bed rails Supine to Sit, Level of Slade: independent Sit to Supine, Level of Slade: supervised Safety Issues: decreased use of arms for pushing/pulling Impairments: strength decreased, impaired balance Transfers Mod I in room. Would benefit from supervision in the hallways d/t unsteadiness. Ambulated 220 ft w/o device, unsteadiness to R but no LOB. Intermittent use of handrail to steady. Sit-Stand, Level of Slade: modified independent Stand-Sit, Level of Slade: modified independent [id number], Assistive Device: none Safety Issues: balance decreased during turns Impairments: impaired balance, strength decreased OT Goal Review Date Flowsheet Row Most Recent Value STG Review Date 05/15/17 at 05/08/2017 1805 Additional Goals #1 OT Flowsheet Row Most Recent Value STG Status met at 05/11/2017 1641 STG Pt will be SBA using HO c BUE HEP. at 05/08/2017 1805 Additional Goals #2 OT Flowsheet Row Most Recent Value STG Status met at 05/11/2017 1641 STG Pt will be supervised for ADLs. at 05/09/2017 1557 Electronically signed by: Paulina Johnson, OT, 05/11/2017 16:44 lan of Care - Cristy Lujan RN - 05/11/2017 3:34 AM PSTProblem: Patient Care Overview (Adult) Goal: Care Team Goals & Evaluation PROBLEM-RELATED GOALS: 1. Shaila will be free of seizures by 05/07 2. Shaila will be free of injury by 05/07 3. Shaila will have CIWA WNL by 05/07 4. Pt will be mod I with ambulation in hallway by 05/11/17 STRATEGY TO ACHIEVE GOALS: 1. Monitor for seizure activity. Padded bed rails in place 2. Follow CIWA protocol 3. Fall Precautions, up with standby assist. 4. Pt will participate in PT activities. RESTRAINT-RELATED GOALS: STRATEGIES TO ACHIEVE RESTRAINT GOALS: Outcome: Unchanged Goal Evaluation: Seizure precautions in place, no seizure activity so far overnight. Continues to be impuls carmela when unattended, SO at bedside for most of the night. CIWA scores <10 overnight. Denies pain. AM labs pending. Will continue to monitor. lan of Care - Donnell Kamara RN - 05/10/2017 7:47 PM PSTSome seizure activity this am, pt moved closer to nurses station, ciwa protocol restarted.Electronically signed by Donnell Alexander RN at 05/10 7:48 PM PSTPlan of Care - Joseph See, TOOTH CUTTER CONTACT WHEEL - 05/10/2017 11:13 AM PSTProblem: Pat ient Care Overview (Adult) Goal: Care Team Goals & Evaluation PROBLEM-RELATED GOALS: 1. Shaila will be free of seizures by 05/07 2. Shaila will be free of injury by 05/07 3. Shaila will have CIWA WNL by 05/07 4. Pt will be mod I with ambulation in hallway by 05/11/17 STRATEGY TO ACHIEVE GOALS: 1. Monitor for seizure activity. Padded bed rails in place 2. Follow CIWA protocol 3. Fall Precautions, up with standby assist. 4. Pt will participate in PT activities. RESTRAINT-RELATED GOALS: STRATEGIES TO ACHIEVE RESTRAINT GOALS: Missed Visit Patient Information Patient Name: Shaila Son Date of : 1970 Age: 46 y.o. The patient was unable to be seen for today's scheduled visit due to pt in chair on arrival with eyes rolled back, ridged posture, difficulty breathing and unresponsive to name being called. This therapist call a rapid response, pt handed off to rapid response team. Plan: have primary PT follow up with pt tomorrow Electronically signed by: Joseph See PTA, 05/10/2017 11:20 lan of Care - Bridger Beltran RN - 05/10/2017 5:17 AM PSTProblem: Patient Care Overview (Adult) Goal: Care Team Goals & Evaluation PROBLEM-RELATED GOALS: 1. Shaila will be free of seizures by 05/07 2. Shaila will be free of injury by 05/07 3. Shaila will have CIWA WNL by 05/07 4. Pt will be mod I with ambulation in hallway by 05/11/17 STRATEGY TO ACHIEVE GOALS: 1. Monitor for seizure activity. Padded bed rails in place 2. Follow CIWA protocol 3. Fall Precautions, up with standby assist. 4. Pt will participate in PT activities. RESTRAINT-RELATED GOALS: STRATEGIES TO ACHIEVE RESTRAINT GOALS: Outcome: Improving Goal Evaluation: Patient had no falls or injuries during my shift. CIWA have been negative. C/o headache an d BLE muscle spasms, received tylenol twice, with relief. Sclera in both eyes are yellow. Is oriented x4. VS have been stable. lan of Alicia - Jamila Pritchard RN - 05/09/2017 6:56 PM PSTProblem: Patient Care Overview (Adult) Goal: Care Team Goals & Evaluation PROBLEM-RELATED GOALS: 1. Shaila will be free of seizures by 05/07 2. Shaila will be free of injury by 05/07 3. Shaila will have CIWA WNL by 05/07 4. Pt will be mod I with ambulation in hallway by 05/11/17 STRATEGY TO ACHIEVE GOALS: 1. Monitor for seizure activity. Padded bed rails in place 2. Follow CIWA protocol 3. Fall Precautions, up with standby assist. 4. Pt will participate in PT activities. RESTRAINT-RELATED GOALS: STRATEGIES TO ACHIEVE RESTRAINT GOALS: Outcome: Improving Goal Evaluation: SD-05/04 Admit for ETOH withdrawal, seizures, CIWA d/c. Sitter discontinued. VSS. Magnesium , potassium covered, . Significant other at bedside. I person assist. Bed alarm in place. SL left finger ( tried to restart x4), Plan is discharge tomorrow and will do outpatient rehab . lan of Care - Paulina Johnson, OT - 05/09/2017 2:38 PM PSTFormatting of this note might be different f rom the original. Problem: Patient Care Overview (Adult) Goal: Care Team Goals & Evaluation PROBLEM-RELATED GOALS: 1. Shaila will be free of seizures by 05/07 2. Shaila will be free of injury by 05/07 3. Shaila will have CIWA WNL by 05/07 4. Pt will be mod I with ambulation in hallway by 05/11/17 STRATEGY TO ACHIEVE GOALS: 1. Monitor for seizure activity. Padded bed rails in place 2. Follow CIWA protocol 3. Fall Precautions, up with standby assist. 4. Pt will participate in PT activities. RESTRAINT-RELATED GOALS: STRATEGIES TO ACHIEVE RESTRAINT GOALS: Outcome: Improving Occupational Therapy Plan of Care Treatment Note Summary: Shaila has been participating in occupational therapy for treatment of Impaired f unctional mobility, safety, act santy post alcohol withdrawl seizure. Hx significant for hyper tension and alcohol abuse. . Emphasis of session included UE therex. Patient demonstrates progress towards functional goals as evidenced by improved UE strength, good tolerance for t he exercise. Remaining barriers to discharge and functional limitations include pt indicate d desire for treatment for alcohol addiction. Further ADLs to be completed tomorrow. Shaila will benefit from continued therapeutic intervention to address ongoing impairments an d increase safety and independence with activities necessary for safe discharge. Refer pamella self for specific details regarding functional levels. Occupational Therapy Discharge Recommendations are: Recommended discharge disposition: intermediate facility, home with assist, community-[facility] ased residential facility ([facility]F) (Addiction recovery) Post discharge occupational therapy recommendation: (assess as needed) Equipment Recommendations: (TBD post SNF stay. ) Planned Interventions:ADL retraining, transfer training, strengthening Recommended Frequency: 4 times/wk Patient Status/Goals: Reflects last filed data and may be from multiple contributors. ADLs Further ADLs tomorrow. Therapeutic Exercise Bent elbow shoulder extension, red t-tube 3 sets x 20; straight elbow elbow extension from 90* 2 sets x 15; bicep flexion red t-tube 2 sets x 10. Functional Endurance Good for activities presented. Bed Mobility Assistive Device: bed rails Supine to Sit, Level of Slade: supervised Sit to Supine, Level of Slade: supervised Safety Issues: decreased use of arms for pushing/pulling Impairments: strength decreased Transfers Sit-Stand, Level of Slade: stand by assist Stand-Sit, Level of Slade: stand by assist Lka-Wrkby-Fco, Assistive Device: none (Hand-held assist) Safety Issues: balance decreased during turns, loses balance backward Impairments: pain, strength decreased OT Goal Review Date Flowsheet Row Most Recent Value STG Review Date 05/15/17 at 05/08/2017 1805 Additional Goals #1 OT Flowsheet Row Most Recent Value STG Status progressing at 05/09/2017 1557 STG Pt will be SBA using HO c BUE HEP. at 05/08/2017 1805 Additional Goals #2 OT Flowsheet Row Most Recent Value STG Status new at 05/09/2017 1557 STG Pt will be supervised for ADLs. at 05/09/2017 1557 Electronically signed by: Paulina Johnson OT, 05/09/2017 15:59 lan of Care - Ryan Snider, PT - 05/09/2017 10:30 AM PST Problem: Patient Care Overview (Adult) Goal: Care Team Goals & Evaluation PROBLEM-RELATED GOALS: 1. Shaila will be free of seizures by 05/07 2. Shaila will be free of injury by 05/07 3. Shaila will have CIWA WNL by 05/07 4. Pt will be mod I with ambulation in hallway by 05/11/17 STRATEGY TO ACHIEVE GOALS: 1. Monitor for seizure activity. Padded bed rails in place 2. Follow CIWA protocol 3. Fall Precautions, up with standby assist. 4. Pt will participate in PT activities. RESTRAINT-RELATED GOALS: STRATEGIES TO ACHIEVE RESTRAINT GOALS: Outcome: Improving Physical Therapy Plan of Care Initial Evaluation, Treatment Note Summary: Shaila has been participating in physical therapy for treatment of impaired funct ional mobility, impaired balance, weakness, confusion, and pain following hospitalization fo r seizure. Pt med history significant for ETOH dependency. . Emphasis of session included Bed mobility, transfer training, gait training, safety awareness. Patient demonstrates pro major towards functional goals as evidenced by able to ambulate in hallway, agreeable to saf ety advice. Remaining barriers to discharge and functional limitations include Pt confused and impulsive causing her to be a fall risk, pt with imbalance in standing and gait, she con tinues to need 1P assist with mobility and she lives alone. Shaila will benefit from continued therapeutic intervention to address ongoing impairments an d increase safety and independence with activities necessary for safe discharge. Refer pamella self for specific details regarding functional levels. Physical Therapy Discharge Recommendations are: Recommended discharge disposition: home with assist Post discharge physical therapy recommendation: no further PT Equipment Recommendations: other (see comments) (Pt reports she has a 2WW and a cane) Planned Interventions: balance training, gait training, patient/family education, transfer training Recommended Frequency: 3 times/wk Patient Status/Goals: Reflects last filed data and may be from multiple contributors. Gait Min A for safety due to impaired balance and weakness Level of Slade: minimal assist (75% patient effort) Assistive Device: (ICE CREAM TRUCK DRIVER, no AD as pt with mild confusion and AD likely more of a tripping h azard at this time.) Distance (feet): 250 feet x 2 Gait Pattern Analysis: 2-point gait Safety Issues: balance decreased during turns, sequencing ability decreased, loses balance backward Transfers CGA for safety due to imbalance and weakness Sit-Stand, Level of Slade: contact guard assist Stand-Sit, Level of Slade: contact guard assist [id number], Assistive Device: none (FRANCISCA this session) Safety Issues: balance decreased during turns, loses balance backward Impairments: pain, strength decreased Bed Mobility Assistive Device: bed rails Scoot/Bridge, Level of Slade: stand by assist Supine to Sit, Level of Slade: supervised Sit to Supine, Level of Slade: supervised Safety Issues: decreased use of arms for pushing/pulling, decreased use of legs for bridgin g/pushing Impairments: pain, strength decreased Balance Sitting Balance: Static: fair balance Sitting Balance: Dynamic: fair balance Standing Balance: Static: poor balance Standing Balance: Dynamic: poor balance Functional Endurance Fair+ for activities performed ROM L LE ROM: WFL R LE ROM: WFL Strength general weakness, frail body frame L LE Strength: Grossly 3+/5 R LE Strength: Grossly 3+/5 Trunk strength: Grossly 3+/5 PT Goal Review Date Flowsheet Row Most Recent Value STG Review Date 05/11/17 at 05/09/2017 1013 Ooetpa-Sal-Kmqyfs Goal Flowsheet Row Most Recent Value STG Status new at 05/09/2017 1013 STG Slade Level modified independent at 05/09/2017 1013 STG Assistive Device none at 05/09/2017 1013 Ivy-Kosbz-Kmt Goal Flowsheet Row Most Recent Value STG Status new at 05/09/2017 1013 STG Slade Level modified independent at 05/09/2017 1013 STG Assistive Device 2 wheeled walker (FWW) at 05/09/2017 1013 Gait Goal Flowsheet Row Most Recent Value STG Status new at 05/09/2017 1013 STG Slade Level modified independent at 05/09/2017 1013 STG Assistive Device 2 wheeled walker (FWW) at 05/09/2017 1013 STG Distance (feet) 200 feet at 05/09/2017 1013 Electronically signed by: Ryan Ceja PT, 05/09/2017 10:28 lan of Care - Suzy Shine se, RN - 05/08/2017 5:43 PM PSTProblem: Patient Care Overview (Adult) Goal: Care Team Goals & Evaluation PROBLEM-RELATED GOALS: 1. Shaila will be free of seizures by 05/07 2. Shaila will be free of injury by 05/07 3. Shaila will have CIWA WNL by 05/07 STRATEGY TO ACHIEVE GOALS: 1. Monitor for seizure activity. Padded bed rails in place 2. Follow CIWA protocol 3. Fall Precautions, up with standby assist. RESTRAINT-RELATED GOALS: STRATEGIES TO ACHIEVE RESTRAINT GOALS: Outcome: Improving Goal Evaluation: Patient is alert and oriented x3. Can become confused at times but is able to be reoriente d. Denies pain. Up with 1 person assist. VSS. Adequate output. Frequent rounding. Call light and bed alarm in place. Significant other at bedside. lan of Care - Yeimy Madden OT - 05/08/2017 5:20 PM PST Problem: Patient Care Overview (Adult) Goal: Care Team Goals & Evaluation PROBLEM-RELATED GOALS: 1. Shaila will be free of seizures by 05/07 2. Shaila will be free of injury by 05/07 3. Shaila will have CIWA WNL by 05/07 STRATEGY TO ACHIEVE GOALS: 1. Monitor for seizure activity. Padded bed rails in place 2. Follow CIWA protocol 3. Fall Precautions, up with standby assist. RESTRAINT-RELATED GOALS: STRATEGIES TO ACHIEVE RESTRAINT GOALS: Outcome: Improving Occupational Therapy Plan of Care Initial Evaluation, Treatment Note Summary: Shaila presents to occupational therapy with Impaired functional mobility, safety, a ct santy post alcohol withdrawl seizure. Hx significant for hypertension and alcohol abuse. O bjective exam reveals impairments with gait, locomotion, and balance, social dynamics, aerob ic capacity/endurance, arousal, attention, and cognition. Barriers to discharge and functio nal limitations include pt is weak and has poor activity tolerance. She also requires superv ision c standing ADLs and functional transfers. Pt will benefit from skilled OT services to provide BUE HEP to increase independence in ADLs. OT recommending SNF DC or rehab program (p er CM note). Shaila will benefit from therapeutic intervention to address impairments and increase safety and independence with activities necessary for safe discharge. Refer below for specific det ails regarding functional levels. Precautions/Limitations: seizures Previous Level of Function: Transferring: independent Ambulation: independent Toileting: independent Bathing: independent Dressing: independent Eating: independent Communication: understands/communicates without difficulty Swallowin-->swallows foods/liquids without difficulty Equipment Currently Used at Home: none Prior Functional Level Comment: Per pt, she is in and out of rehab. Pt reports she is indep endent in ADLs and recieves assist c IADLs. Living Environment/Accessibility: Lives With: alone Living Arrangements: house Transportation Available: family or friend will provide Patient/Family s Goals: Gain strength to participate in AA meetings. Rehabilitation potential: good, to achieve stated therapy goals Occupational Therapy Discharge Recommendations are: Recommended discharge disposition: intermediate facility Post discharge occupational therapy recommendation: ongoing low intensity therapy, will be nefit from structured setting, minimum 5 therapy days/week, pt is motivated participant Equipment Recommendations: (TBD post SNF stay. ) Planned Interventions:ADL retraining, transfer training, strengthening Recommended Frequency: 4 times/wk Patient Status/Goals: Reflects last filed data and may be from multiple contributors. ADLs Groomed in standing c supervision and set up. Grooming, Level of Slade: supervised, set up required Assistive Device: none Grooming Assess/Train, Position: standing Grooming Assess/Train, Impairments: strength decreased Cognitive Slow to respond but appropriate. Bed Mobility Assistive Device: bed rails Supine to Sit, Level of Slade: supervised Sit to Supine, Level of Slade: supervised Safety Issues: decreased use of arms for pushing/pulling Impairments: strength decreased Transfers Sit-Stand, Level of Slade: supervised Stand-Sit, Level of Slade: supervised [id number]-Rew, Assistive Device: none Impairments: strength decreased OT Goal Review Date Flowsheet Row Most Recent Value STG Review Date 05/15/17 at 05/08/2017 1805 Additional Goals #1 OT Flowsheet Row Most Recent Value STG Status new at 05/08/2017 1805 STG Pt will be SBA using HO alona NIEVESE HEP. at 05/08/2017 1805 Electronically signed by: Yeimy Mondragon OT, 05/08/2017 18:08 lan of Care - Ashlyn Ocampo - 05/08/2017 2:24 PM PSTDischarge Planning: This CLINICAL TECHNICIAN spoke with Shaila and her significant other Edd at her bedside regarding discharge plans. Shaila reports she needs to have alcohol treatment. She would like to pursue outpatient treat ment and stay close to Ilana Lamas ([phone]) from [facility]. This ghost writer explained to Shaila that Ilana is working on referrals. CM to continue to follow. Electronically signed by: Ashlyn Mack 05/08/2017 14:27 lan of Care - Nani Serrano RN - 05/08/2017 2:03 AM PSTProblem: Patient Care Overview (Adult) Goal: Care Team Goals & Evaluation PROBLEM-RELATED GOALS: 1. Shaila will be free of seizures by 05/07 2. Shaila will be free of injury by 05/07 3. Shaila will have CIWA WNL by 05/07 STRATEGY TO ACHIEVE GOALS: 1. Monitor for seizure activity. Padded bed rails in place 2. Follow CIWA protocol 3. Fall Precautions, up with standby assist. RESTRAINT-RELATED GOALS: STRATEGIES TO ACHIEVE RESTRAINT GOALS: Goal Evaluation: Pt is alert although quiet and answers appropriately when asked que stions. Pt is steady on feet this pm and is cooperative with all care. No seizures this shif t. Significant other is staying in room with pt and pt has sitter for safety. lan of Care - Livan Busch Chaplain - 05/07/2017 5:13 PM PST Spiritual Care Shaila Son is a 46 y.o. female who is admitted for Hypomagnesemia [E83.42] Alcohol withdrawal syndrome with complication (HCC) [F10.239] Alcohol withdrawal seizure with delirium (HCC) [F10.231]. Spiritual Evaluation: Patient is Rastafarian. Patient desired prayer. Spiritual Intervention: Listened to patient and her concerns, had prayer with the patient. Pastoral presence pr ovided. Spiritual Outcomes: Patient and her S.O. Appreciated the overlock collar setter's visit. Spiritual Goals / Follow-up: Will see the patient as requested. If there are any other spiritual care issues that arise, please contact overlock collar setter. lan of Care - Erika Willis RN - 05/07/2017 2:24 PM PSTProblem: Discharge Planning Goal: Patient will be discharged in a safe manner Outcome: Unchanged I called the [facility] and left a message for Shaila Palomino's D& A Counselor, requesting a return call and [phone]. I then called [facility] s ([phone]) and left a message for Skip requesting a return call at [phone]. I called Skip back at 1419 and visited with him regarding this patient's desire to go to an [facility] Rehab program. He said that he will make some phone calls and call me back shortly. El ectronically signed by: Erika Willis RN 05/07/2017 14:24 Skip called me right back at 1430 to let me know that he had spoken to Georgette at [facility] and passed on the need for an [facility] D&A program for this patient. He said that Georgette had t old him she would call me back shortly to discuss this with me. I just attempted to call Isaura barboza and had to leave another message letting her know that I was looking forward to hearing from her today as the Hospitalist was hoping to discharge this patient today if possible. I requested a call back lashay as well. CM please continue to follow. Electronically signed b y: Erika Willis RN 05/07/2017 15:36 I received a voice mail from Ilana Lamas ([phone]) from [facility] program angelina pardo I was on the phone with another patient's family member. She stated that Shaila has had juice y poor participation in their outpatient program and [facility]. She said that Shaila's home environment is not a heal thy one regarding alcohol either. She said they had sent her to [place] recently to a IP miguel[facility] cas[facility] as her children live, thinking that she might have a better chance of success but she walked out of that one as well. Her eldest daughter smokes pot and is not interested in greene ving anything to do with her and her younger children are all in foster care over there. Raven pardo said she will send referrals out to everyone in her service area again but to be aware the y are also unwilling to take her due to her physical issues (inability to ambulate independe ntly, seizure history, cirrhosis, short attention span) as well. I have also sent a referra l to [facility], with Shaila's permission, as well. I spoke to Amena at [facility] and she said that the soonest she would have a bed would be maybe at the end of the week. CM teresa bryant to follow. Electronically signed by: Erika Willis, JAIME 05/07/2017 17:14 Discharge Disposition: TBD lan of Jono Liang RN - 05/07/2017 5:44 AM PSTPatient hypertensive but stable this shift, prec edex gtt titrated off this AM. Patient impulsive, but cooperative oriented to self and place , CIWA 4-6 this shift. Up to commode 1 person assist multiple times. New IV started left reich d, difficult start. No seizure activity. Taking PO meds. lan of Alicia - Katina Gill Chaplain - 05/06/2017 9:38 AM PSTProblem: Patient Care Overview (Adult) Goal: Care Team Goals & Evaluation PROBLEM-RELATED GOALS: 1. Shaila will be free of seizures by 05/07 2. Shaila will be free of injury by 05/07 3. Shaila will have CIWA WNL by 05/07 STRATEGY TO ACHIEVE GOALS: 1. Monitor for seizure activity. Padded bed rails in place 2. Follow CIWA protocol 3. Fall Precautions, up with standby assist. RESTRAINT-RELATED GOALS: STRATEGIES TO ACHIEVE RESTRAINT GOALS: Spiritual Care Shaila Son is a 46 y.o. female who is admitted for Hypomagnesemia [E83.42] Alcohol withdrawal syndrome with complication (HCC) [F10.239] Alcohol withdrawal seizure with delirium (HCC) [F10.231]. Product Marketer visit was part of routine rounding. Spiritual Evaluation: Patient was sleeping when overlock collar setter arrived. Spiritual Interventions: Saute Chef left spiritual care note card. Spiritual Outcomes: No change noted. Spiritual Goals/Follow-up: Follow up as needed. lan of Jocelyne Watson RN - 05/05/2017 6:27 PM PSTProblem: Patient Care Overview (Adult) Goal: Care Team Goals & Evaluation PROBLEM-RELATED GOALS: 1. Shaila will be free of seizures by 05/07 2. Shaila will be free of injury by 05/07 3. Shaila will have CIWA WNL by 05/07 STRATEGY TO ACHIEVE GOALS: 1. Monitor for seizure activity. Padded bed rails in place 2. Follow CIWA protocol 3. Fall Precautions, up with standby assist. RESTRAINT-RELATED GOALS: STRATEGIES TO ACHIEVE RESTRAINT GOALS: Outcome: Unchanged Goal Evaluation: Intermittently agitated. Precedex drip on for short periods, becomes oversedated on very low doses of infusion. Last IV dose of Ativan at 0853. RASS score used instead of CIWA as p t does not always answer questions. Does remain oriented to self only. When patient awake s he is having visual hallucinations. Sitter at bedside. lan [facility] - Siena King LICSW - 05/05/2017 2:03 PM PSTDischarge Planning Attempted case management assessment, however pt with alcohol withdrawal syndrome currently requiring a sitter. She has had visual hallucinations last night. Pt unable to productively participate in meeting with case management. Chart reviewed ( see note by Erika in case management on 01/01/17). Will attempt visit again tomorrow. Electronically signed by: ZAHRA Owens 05/05/2017 14:05 eICU Note - Jocelyne Smart RN - 05/05/2017 10:51 AM PSTPrecedex on for approximately one hour, stopped at 0 956 for oversedation. [facility] - 05/05/2017 8:12 AM PSTProblem: Patient Care Overv iew (Adult) Goal: Care Team Goals & Evaluation PROBLEM-RELATED GOALS: 1. Shaila will be free of seizures by 05/07 2. Shaila will be free of injury by 05/07 3. Shaila will have CIWA WNL by 05/07 STRATEGY TO ACHIEVE GOALS: 1. Monitor for seizure activity. Padded bed rails in place 2. Follow CIWA protocol 3. Fall Precautions, up with standby assist. RESTRAINT-RELATED GOALS: STRATEGIES TO ACHIEVE RESTRAINT GOALS: Outcome: Declining Goal Evaluation: CIWA score elevated this night to as high as 30. Patient is tolerating the Ativan without much side effect. SHe has not slept once tonight. Hallucinations are increasing and so is agitation. Sitter needed to be placed at the bedside as she was climbing over side rails, pulling out lines, and needed one-one distraction. Was able to go to [facility] early in shift, bu t has been incontinent this am. [facility]. No seizure activity. documented in this encounter Plan of Treatment Not on filedocumented as of this encounter Procedures + +--------+ + + + | Procedure Name | Priori | Date/Time | Associated Diagnosis | Comments | | | ty | | | | + +--------+ + + + | BASIC METABOLIC | STAT | 05/12/2017 | | Results for this | | PANEL | | 10:15 AM | | procedure are in the | | | | PST | | results section. | + +--------+ + + + | MAGNESIUM | Routin | 05/11/2017 | | Results for this | | | e | 5:12 AM | | procedure are in the | | | | PST | | results section. | + +--------+ + + + | AMMONIA | Routin | 05/11/2017 | | Results for this | | | e | 5:12 AM | | procedure are in the | | | | PST | | results section. | + +--------+ + + + | BASIC METABOLIC | Routin | 05/11/2017 | | Results for this | | PANEL | e | 5:12 AM | | procedure are in the | | | | PST | | results section. | + +--------+ + + + | BASIC METABOLIC | Routin | 05/10/2017 | | Results for this | | PANEL | e | 11:45 AM | | procedure are in the | | | | PST | | results section. | + +--------+ + + + | MAGNESIUM | Routin | 05/10/2017 | | Results for this | | | e | 4:19 AM | | procedure are in the | | | | PST | | results section. | + +--------+ + + + | AMMONIA | Routin | 05/10/2017 | | Results for this | | | e | 4:19 AM | | procedure are in the | | | | PST | | results section. | + +--------+ + + + | BASIC METABOLIC | Routin | 05/10/2017 | | Results for this | | PANEL | e | 4:19 AM | | procedure are in the | | | | PST | | results section. | + +--------+ + + + | CBC WITH | Routin | 05/09/2017 | | Results for this | | DIFFERENTIAL | e | 5:13 AM | | procedure are in the | | | | PST | | results section. | + +--------+ + + + | MAGNESIUM | Routin | 05/09/2017 | | Results for this | | | e | 5:13 AM | | procedure are in the | | | | PST | | results section. | + +--------+ + + + | BASIC METABOLIC | Routin | 05/09/2017 | | Results for this | | PANEL | e | 5:13 AM | | procedure are in the | | | | PST | | results section. | + +--------+ + + + | OCCULT BLOOD, STOOL, | Routin | 05/08/2017 | | Results for this | | SPECIMEN 1 | e | 1:59 PM | | procedure are in the | | | | PST | | results section. | + +--------+ + + + | EXTRA GREEN TOP TUBE | Routin | 05/08/2017 | | Results for this | | | e | 5:09 AM | | procedure are in the | | | | PST | | results section. | + +--------+ + + + | CBC NO DIFFERENTIAL | Routin | 05/08/2017 | | Results for this | | | e | 5:09 AM | | procedure are in the | | | | PST | | results section. | + +--------+ + + + | OCCULT BLOOD, STOOL, | Routin | 05/07/2017 | | Results for this | | SPECIMEN 1 | e | 11:34 AM | | procedure are in the | | | | PST | | results section. | + +--------+ + + + | CBC NO DIFFERENTIAL | Routin | 05/07/2017 | | Results for this | | | e | 4:19 AM | | procedure are in the | | | | PST | | results section. | + +--------+ + + + | COMPREHENSIVE | Routin | 05/07/2017 | | Results for this | | METABOLIC PANEL | e | 4:19 AM | | procedure are in the | | | | PST | | results section. | + +--------+ + + + | OCCULT BLOOD, STOOL, | Routin | 05/06/2017 | | Results for this | | SPECIMEN 1 | e | 12:06 PM | | procedure are in the | | | | PST | | results section. | + +--------+ + + + | CBC WITH | Routin | 05/06/2017 | | Results for this | | DIFFERENTIAL | e | 5:06 AM | | procedure are in the | | | | PST | | results section. | + +--------+ + + + | MAGNESIUM | Routin | 05/06/2017 | | Results for this | | | e | 5:06 AM | | procedure are in the | | | | PST | | results section. | + +--------+ + + + | AMMONIA | Routin | 05/06/2017 | | Results for this | | | e | 5:06 AM | | procedure are in the | | | | PST | | results section. | + +--------+ + + + | COMPREHENSIVE | Routin | 05/06/2017 | | Results for this | | METABOLIC PANEL | e | 5:06 AM | | procedure are in the | | | | PST | | results section. | + +--------+ + + + | PROTIME INR | Routin | 05/05/2017 | | Results for this | | | e | 10:25 AM | | procedure are in the | | | | PST | | results section. | + +--------+ + + + | CBC WITH | Routin | 05/05/2017 | | Results for this | | DIFFERENTIAL | e | 10:25 AM | | procedure are in the | | | | PST | | results section. | + +--------+ + + + | MAGNESIUM | Routin | 05/05/2017 | | Results for this | | | e | 10:25 AM | | procedure are in the | | | | PST | | results section. | + +--------+ + + + | COMPREHENSIVE | Routin | 05/05/2017 | | Results for this | | METABOLIC PANEL | e | 10:25 AM | | procedure are in the | | | | PST | | results section. | + +--------+ + + + | AMMONIA | Routin | 05/05/2017 | | Results for this | | | e | 5:11 AM | | procedure are in the | | | | PST | | results section. | + +--------+ + + + | CULTURE, MRSA | Routin | 05/04/2017 | | Results for this | | | e | 10:41 AM | | procedure are in the | | | | PST | | results section. | + +--------+ + + + | CBC NO DIFFERENTIAL | Routin | 05/04/2017 | | Results for this | | | e | 4:27 AM | | procedure are in the | | | | PST | | results section. | + +--------+ + + + | BASIC METABOLIC | Routin | 05/04/2017 | | Results for this | | PANEL | e | 4:27 AM | | procedure are in the | | | | PST | | results section. | + +--------+ + + + | CBC WITH | STAT | 05/03/2017 | | Results for this | | DIFFERENTIAL | | 9:30 PM | | procedure are in the | | | | PST | | results section. | + +--------+ + + + | MAGNESIUM | STAT | 05/03/2017 | | Results for this | | | | 9:30 PM | | procedure are in the | | | | PST | | results section. | + +--------+ + + + | LIPASE | STAT | 05/03/2017 | | Results for this | | | | 9:30 PM | | procedure are in the | | | | PST | | results section. | + +--------+ + + + | ALCOHOL | STAT | 05/03/2017 | | Results for this | | | | 9:30 PM | | procedure are in the | | | | PST | | results section. | + +--------+ + + + | COMPREHENSIVE | STAT | 05/03/2017 | | Results for this | | METABOLIC PANEL | | 9:30 PM | | procedure are in the | | | | PST | | results section. | + +--------+ + + + documented in this encounter Results Basic Metabolic Panel (05/12/2017 10:15 AM PST) + + + + + [...] + + + + | CO2 | 26 | 24 - 31 mmol/L | [facility] [...] + + + + | Creatinine | 0.68 | 0.60 - 1.30 | [facility] | [...] mL/min/1.73m2 | [facility] | | | [place]ian | RATE,ESTIMATED | | MEDICAL | | | | mL/min/1.47z4Bktu than | | CENTER - | | [...] | | | | | mg/dL | [facility] | | | | | | MEDICAL | | | | | | CENTER - | | | | | | LABORATORY | | + + + + + + | BUN/Creatin | 14.7 | | [facility] | | | ine Ratio | | | [facility] | | [...] [address] | [place] | [phone] | | [facility] | | [address] | | | - LABORATORY | | | | + + + + + Magnesium (05/11/2017 5:12 AM PST) + +---------+ + + + | Component [...] [address] | [place] | [phone] | | [facility] | | [address] | | | - LABORATORY | | | | + + + + + Basic Metabolic Panel (05/11/2017 5:12 AM PST) + + + + + [...] | K | 4.0 | 3.5 - 5.1 | [facility] | [...] + + + + | Glucose | 97 | 70 - 109 mg/dL | [facility] | | | | | | [facility] | | | | | | MEDICAL | | | | | | CENTER - | | | | | | LABORATORY | | + + + + + + | BUN | 8 | 7 - 18 mg/dL | [facility] | | | | | | [facility] | | | | | | MEDICAL | | | | | | CENTER - | | | | | | LABORATORY | | + + + + + + | Creatinine | 0.60 | 0.60 - 1.30 | [facility] | | | | mg/dL | [facility] | | | | | | MEDICAL | | | | | | CENTER - | | | | | | LABORATORY | | + + + + + + | eGFR, | >60Comment: GLOMERULAR | >=60 | [facility] | | | non- | FILTRATION | mL/min/1.73m2 | [facility] | | | [place]ian | RATE,ESTIMATED | | MEDICAL | | | | mL/min/1.55c4Obzb than | | CENTER - | | [...] + | Calcium | 7.6 (L) | 8.3 - 10.5 | [facility] | | | | | mg/dL | [facility] | | | | | | MEDICAL | | | | | | CENTER - | | | | | | LABORATORY | | + + + + + + | BUN/Creatin | 13.3 | | [facility] | | | ine [...] + | [facility] | [address] | [place] | [phone] | | [facility] | | [address] | | | - LABORATORY | | | | + + + + + Ammonia (05/11/2017 5:12 AM PST) + +--------+ + + + | Component | Value | Ref Range | Performed | Pathologist | | | | | At | Signature | + +--------+ + + + | Ammonia | 51 (H) | 11 - 35 umol/L | [...] [address] | [place] | [phone] | | [facility] | | [address] | | | - LABORATORY | | | | + + + + + Basic Metabolic Panel (05/10/2017 11:45 AM PST) + + + + + [...] + + + + | CO2 | 16 (L) | 24 - 31 mmol/L | [facility] | | | | | [facility] | | | | | | MEDICAL | | | | | | CENTER - | | | | | | LABORATORY | | + + + + + + | Anion Gap | 7 | 3 - 16 mmol/L | [facility] | | | [facility] | [facility] | | | | | | MEDICAL | | | | | | CENTER - | | | | | | LABORATORY | | + + + + + + | Glucose | 105 | 70 - 109 mg/dL | [facility] [...] + + + + | Creatinine | 0.76 | 0.60 - 1.30 | [facility] | | | | | mg/dL | [facility] | | | | | | MEDICAL | | | | | | CENTER - | | | | | | LABORATORY | | + + + + + + | eGFR, | >60Comment: GLOMERULAR | >=60 | [facility] | | | non- | FILTRATION | mL/min/1.73m2 | [facility] | | | Haitian | RATE,ESTIMATED | | MEDICAL | | | | mL/min/1.82q5Bchb than | | CENTER - | | [...] + + + | Calcium | 7.9 (L) | 8.3 - 10.5 | [facility] | | | | | mg/dL | [facility] | | | | | | MEDICAL | | | | | | CENTER - | | | | | | LABORATORY | | + + + + + + | BUN/Creatin | 11.8 | | [facility] | | | ine [...] [address] | [place] | [phone] | | [facility] | | [address] | | | - LABORATORY | | | | + + + + + Ammonia (05/10/2017 4:19 AM PST) + +--------+ + + + | Component | Value | Ref Range | Performed | Pathologist | | | | | At | Signature | + +--------+ + + + | Ammonia | 55 (H) | 11 - 35 umol/L | [facility] | | | | | | [facility] | | | | | | [...] + | [facility] | [address] | [place] | [phone] | | [facility] | | [address] | | | - LABORATORY | | | | + + + + + Magnesium (05/10/2017 4:19 AM PST) + +-------+ + + + [...] [address] | [place] | [phone] | | [facility] | | [address] | | | - LABORATORY | | | | + + + + + Basic Metabolic Panel (05/10/2017 4:19 AM PST) + + + + + [...] | K | 4.0 | 3.5 - 5.1 | [facility] | [...] + + + + | Creatinine | 0.63 | 0.60 - 1.30 | [facility] | | | | | mg/dL | [facility] | | | | | | MEDICAL | | | | | | CENTER - | | | | | | LABORATORY | | + + + + + + | eGFR, | >60Comment: GLOMERULAR | >=60 | [facility] | | | non- | FILTRATION | mL/min/1.73m2 | [facility] | | | [place]ian | RATE,ESTIMATED | | MEDICAL | | | | mL/min/1.09w0Habd than | | CENTER - | | [...] + | Calcium | 7.6 (L) | 8.3 - 10.5 | [facility] | | | | | mg/dL | [facility] | | | | | | MEDICAL | | | | | | CENTER - | | | | | | LABORATORY | | + + + + + + | BUN/Creatin | 14.3 | | [facility] | | | ine [...] [address] | [place] | [phone] | | [facility] | | [address] | | | - LABORATORY | | | | + + + + + Magnesium (05/09/2017 5:13 AM PST) + +---------+ + + + | Component [...] + | [facility] | [address] | [place] | [phone] | | [facility] | | [address] | | | - LABORATORY | | | | + + + + + Basic Metabolic Panel (05/09/2017 5:13 AM PST) + + + + + [...] + + + + | Glucose | 97 | 70 - 109 mg/dL | [facility] [...] | mL/min/1.73m2 | [facility] | | | [place]ian | RATE,ESTIMATED | | MEDICAL | | | | mL/min/1.03d4Hkss than | | CENTER - | | [...] | | | | | mg/dL | [facility] | | | | | | [...] [address] | [place] | [phone] | | [facility] | | [address] | | | - LABORATORY | | | | + + + + + CBC with Differential (05/09/2017 5:13 AM PST) + + + + + + | Component | Value | Ref Range | Performed | Pathologist | | | | | At | Signature | + + + + + + | White Blood | 2.4 (LL)Comment: | 4.0 - 11.0 K/uL | [facility] | | | Cells | Critical Result called | | [facility] | | | | to and read back by | | MEDICAL | | | | Alesha Board on | | CENTER - | | | | 05/09/2017 at 6:15 by | | LABORATORY | | | | Richmond Lemus. | | | | + + + + + + | Red Blood | 2.90 (L) | 3.70 - 5.20 | [facility] [...] + + + + | Hematocrit | 26.7 (L) | 34.0 - 47.0 % | [...] | MCHC | 34.5 | 32.0 - 36.0 | [facility] | | | | | g/dL | [facility] | | | | | | MEDICAL | | | | | | CENTER - | | | | | | LABORATORY | | + + + + + + | RDW-CV | 16.8 (H) | <15.0 % | [facility] | | | | | | [facility] | | | | | | MEDICAL | | | | | | CENTER - | | | | | | LABORATORY | | + + + + + + | Platelet | 102 (L) | 140 - 440 K/uL | [...] + + + + | % | 42.2 (L) | 45.0 - 82.0 % | [facility] | | | Neutrophils | | | [facility] | | | | | | MEDICAL | | | | | | CENTER - | | | | | | LABORATORY | | + + + + + + | % | 30.9 | 20.0 - 45.0 % | [facility] | | | Lymphocytes | | | [facility] | | | | | | MEDICAL | | | | | | CENTER - | | | | | | LABORATORY | | + + + + + + | % Monocytes | 20.3 (H) | 4.0 - 12.0 % | [facility] | | | | | | [facility] | | | | | | MEDICAL | | | | | | CENTER - | | | | | | LABORATORY | | + + + + + + | % | 3.7 | 0.0 - 5.0 % | [facility] [...] + + + | Absolute | 1.00 (L) | 1.80 - 8.50 | [facility] | [...] | | Lymphocytes | | K/uL | [facility] | [...] + | [facility] [facility] | [address] | [place], [place] | [phone] | | [facility] | | [address] | | | - LABORATORY | | | | + + + + + Occult Blood, Stool, Specimen 1 (05/08/2017 1:59 PM PST) + + + + + + | Component | Value | Ref Range | Performed | Pathologist | | | | | At | Signature | + + + + + + | Occult | Negative | | [facility] | | | Blood in | | | [facility] | | | 1st | | | MEDICAL | | | [...] + | [facility] | [address] | [place] | [phone] | | [facility] | | [address] | | | - LABORATORY | | | | + + + + + Extra Green Top Tube (05/08/2017 5:09 AM PST) + +-------+ + + + [...] + | [facility] | [address] | [place], [place] | [phone] | | [facility] | | [address] | | | - LABORATORY | | | | + + + + + CBC no Differential (05/08/2017 5:09 AM PST) + + + + + + | Component | Value | Ref Range | Performed | Pathologist | | | | | At | Signature | + + + + + + | White Blood | 2.8 (L) | 4.0 - 11.0 K/uL | [facility] | | | Cells | | | [facility] | | | | | | MEDICAL | | | | | | CENTER - | | | | | | LABORATORY | | + + + + + + | Red Blood | 2.76 (L) | 3.70 - 5.20 | [facility] | | | Cells | | M/uL | [facility] | | | | | | MEDICAL | | | | | | CENTER - | | | | | | LABORATORY | | + + + + + + | Hemoglobin | 8.7 (L) | 11.5 - 16.0 | [facility] | | | | | g/dL | [facility] | | | | [...] + + + + | MCV | 91.8 | 83.0 - 101.0 fL | [facility] | | | | | | [facility] | | | [facility] | | MEDICAL | | | | | | CENTER - | | | | | | LABORATORY | | + + + + + + | MCH | 31.5 | 28.0 - 35.0 pg | [facility] | | | | | | [facility] | | | | | | MEDICAL | | | | | | CENTER - | | | | | | LABORATORY | | + + + + + + | MCHC | 34.3 | 32.0 - 36.0 | [facility] | | | | | g/dL | [facility] | | | | | | MEDICAL | | | | | | CENTER - | | | | | | LABORATORY | | + + + + + + | RDW-CV | 16.8 (H) | <15.0 % | [facility] | [...] | MPV | 8.2 | fL | [facility] | | | | | [...] [address] | [place] | [phone] | | [facility] | | [address] | | | - LABORATORY | | | | + + + + + Occult Blood, Stool, Specimen 1 (05/07/2017 11:34 AM PST) + + + + + + | Component | Value | Ref Range | Performed | Pathologist | | | | | At | Signature | + + + + + + | Occult | Negative | | [facility] | | | Blood in | | | [facility] | | | 1st | | | MEDICAL | | | [...] + | [facility] | [address] | [place], [place] | [phone] | | [facility] | | [address] | | | - LABORATORY | | | | + + + + + CBC no Differential (05/07/2017 4:19 AM PST) + + + + + + | Component | Value | Ref Range | Performed | Pathologist | | | | | At | Signature | + + + + + + | White Blood | 2.1 (LL)Comment: | 4.0 - 11.0 K/uL | [facility] | | | Cells | Consistent with previous | | [facility] | | | | results. | | MEDICAL | | | | | | CENTER - | | | | | | LABORATORY | | + + + + + + | Red Blood | 2.77 (L) | 3.70 - 5.20 | [facility] [...] + + + + | Hematocrit | 25.7 (L) | 34.0 - 47.0 % | [facility] | | | | | | [facility] | | | | | | MEDICAL | | | | | | CENTER - | | | | | | LABORATORY | | + + + + + + | MCV | 92.7 | 83.0 - 101.0 fL | [facility] [...] | | | | g/dL | [facility] | | | | | | MEDICAL | | | | | | CENTER - | | | | | | LABORATORY | | + + + + + + | RDW-CV | 16.9 (H) | <15.0 % | [facility] | | | | | | [facility] | | | | | | MEDICAL | | | | | | CENTER - | | | | | | LABORATORY | | + + + + + + | Platelet | 80 (L) | 140 - 440 K/uL | [...] [address] | [place] | [phone] | | [facility] | | [address] | | | - LABORATORY | | | | + + + + + Comprehensive Metabolic Panel (05/07/2017 4:19 AM PST) + + + + + [...] | K | 4.0 | 3.5 - 5.1 | [facility] | [...] mL/min/1.73m2 | [facility] | | | [place] | RATE,ESTIMATED | | MEDICAL | | | | mL/min/1.54p9Cqxy than | | CENTER - | | [...] + | Calcium | 7.6 (L) | 8.3 - 10.5 | [facility] [...] + + + + | AST | 61 (H) | 10 - 42 U/L | [...] | | | | | | [facility] | | | | | | MEDICAL | | | | | | CENTER - | | | | | | LABORATORY | | + + + + + + | Alkaline | 114 (H) | 40 - 110 U/L | [facility] | | | Phosphatase | | | [facility] | | | | | | MEDICAL | | | | | | CENTER - | | | | | | LABORATORY | | + + + + + + | Globulin | 3.1 | 2.1 - 3.8 g/dL | [facility] [...] [address] | [place] | [phone] | | [facility] | | [address] | | | - LABORATORY | | | | + + + + + Occult Blood, Stool, Specimen 1 (05/06/2017 12:06 PM PST) + + + + + + | Component | Value | Ref Range | Performed | Pathologist | | | | | At | Signature | + + + + + + | Occult | Negative | | [facility] | | | Blood in | | | [facility] | | | 1st | | | MEDICAL | | | [...] [address] | [place] | [phone] | | [facility] | | [address] | | | - LABORATORY | | | | + + + + + Ammonia (05/06/2017 5:06 AM PST) + +--------+ + + + [...] [address] | [place] | [phone] | | [facility] | | [address] | | | - LABORATORY | | | | + + + + + Magnesium (05/06/2017 5:06 AM PST) + +-------+ + + + [...] [address] | [place] | [phone] | | [facility] | | [address] | | | - LABORATORY | | | | + + + + + Comprehensive Metabolic Panel (05/06/2017 5:06 AM PST) + + + + + + | Component | Value | Ref Range | Performed | Pathologist | | | | | At | Signature | + + + + + + | Na | 128 (L) | 136 - 149 | [facility] | | | | | mmol/L | [facility] | | | | | | MEDICAL | | | | | | CENTER - | | | | | | LABORATORY | | + + + + + + | K | 4.6 | 3.5 - 5.1 | [facility] | [...] + + + | Anion Gap | 2 (L) | 3 - 16 mmol/L | [facility] [...] + + + + | Creatinine | 0.52 (L) | 0.60 - 1.30 | [facility] [...] mL/min/1.73m2 | [facility] | | | [place] | RATE,ESTIMATED | | MEDICAL | | | | mL/min/1.40l7Tnsk than | | CENTER - | | [...] | | | | mg/dL | [facility] | | | | | | MEDICAL | | | | | | CENTER - | | | | | | LABORATORY | | + + + + + + | Albumin | 1.7 (L) | 3.2 - 5.0 g/dL | [facility] | | | | | | [facility] | | | | | [...] + + + + | AST | 63 (H) | 10 - 42 U/L | [...] + + + + | Globulin | 3.1 | 2.1 - 3.8 g/dL | [facility] [...] + + + + | BUN/Creatin | 11.5 | | [facility] | | | ine [...] [address] | [place] | [phone] | | [facility] | | [address] | | | - LABORATORY | | | | + + + + + CBC with Differential (05/06/2017 5:06 AM PST) + + + + + + | Component | Value | Ref Range | Performed | Pathologist | | | | | At | Signature | + + + + + + | White Blood | 1.6 (LL)Comment: | 4.0 - 11.0 K/uL | [facility] | | | Cells | Critical Result called | | [facility] | | | | to and read back by Shine | | MEDICAL | | | | Christiano on 05/06/2017 at | | CENTER - | | | | 6:21 by Richmond Lemus. | | LABORATORY | | | | | | | | + + + + + + | Red Blood | 2.83 (L) | 3.70 - 5.20 | [facility] | | | Cells | | M/uL | [facility] | | | | | [...] + + + + | Hematocrit | 26.1 (L) | 34.0 - 47.0 % | [...] + + + + | MCHC | 32.7 | 32.0 - 36.0 | [facility] | | | | | g/dL | [facility] | | | | | | MEDICAL | | | | | | CENTER - | | | | | | LABORATORY | | + + + + + + | RDW-CV | 16.3 (H) | <15.0 % | [facility] | | | | | | [facility] | | | | | | MEDICAL | | | | | | CENTER - | | | | | | LABORATORY | | + + + + + + | Platelet | 61 (L) | 140 - 440 K/uL | [facility] | | | Count | | | [facility] | | [...] + + + + | % | 21.8 | 20.0 - 45.0 % | [facility] | | | Lymphocytes | | | [facility] | | | | | | MEDICAL | | | | | | CENTER - | | | | | | LABORATORY | | + + + + + + | % Monocytes | 14.0 (H) | 4.0 - 12.0 % | [facility] | | | | | | [facility] | | | | | | MEDICAL | | | | | | CENTER - | | | | | | LABORATORY | | + + + + + + | % | 5.4 (H) | 0.0 - 5.0 % | [facility] | | | Eosinophils | | | [facility] | | | | | | MEDICAL | | | | | | CENTER - | | | | | | LABORATORY | | + + + + + + | % Basophils | 1.8 (H) | 0.0 - 1.0 % | [facility] | | | | | | [facility] | | | | | | MEDICAL | | | | | | CENTER - | | | | | | LABORATORY | | + + + + + + | Absolute | 0.90 (L) | 1.80 - 8.50 | [facility] | | | Neutrophils | | K/uL | [facility] | | | | | | MEDICAL | | | | | | CENTER - | | | | | | LABORATORY | | + + + + + + | Absolute | 0.30 (L) | 0.60 - 3.20 | [facility] | | | Lymphocytes | | K/uL | [facility] | | | | | | MEDICAL | | | | | | CENTER - | | | | | | LABORATORY | | + + + + + + | Absolute | 0.20 | 0.00 - 1.00 | [facility] | [...] [address] | [place] | [phone] | | [facility] | | [address] | | | - LABORATORY | | | | + + + + + Magnesium (05/05/2017 10:25 AM PST) + +---------+ + + + | Component [...] [address] | [place] | [phone] | | [facility] | | [address] | | | - LABORATORY | | | | + + + + + CBC with Differential (05/05/2017 10:25 AM PST) + + + + + + | Component | Value | Ref Range | Performed | Pathologist | | | | | At | Signature | + + + + + + | White Blood | 2.3 (LL)Comment: | 4.0 - 11.0 K/uL | [facility] | | | Cells | Critical Result called | | [facility] | | | | to and read back by | | MEDICAL | | | | Jocelyne Smart on | | CENTER - | | | | 05/05/2017 at 11:19 by | | LABORATORY | | | | Richmond Lemus. | | | | + + + + + + | Red Blood | 2.91 (L) | 3.70 - 5.20 | [facility] | | | Cells | | M/uL | [facility] | | | | | | MEDICAL | | | | | | CENTER - | | | | | | LABORATORY | | + + + + + + | Hemoglobin | 9.0 (L) | 11.5 - 16.0 | [facility] | | | | | g/dL | [facility] | | | | | | MEDICAL | | | | | | CENTER - | | | | | | LABORATORY | | + + + + + + | Hematocrit | 26.6 (L) | 34.0 - 47.0 % | [facility] | | | | | | [facility] | | | | | | MEDICAL | | | | | | CENTER - | | | | | | LABORATORY | | + + + + + + | MCV | 91.3 | 83.0 - 101.0 fL | [facility] | | | | | | [facility] | | | | | | MEDICAL | | | | | | CENTER - | | | | | | LABORATORY | | + + + + + + | MCH | 31.0 | 28.0 - 35.0 pg | [facility] [...] + + + + | RDW-CV | 16.5 (H) | <15.0 % | [facility] | | | | | | [facility] | | | | | | MEDICAL | | | | | | CENTER - | | | | | | LABORATORY | | + + + + + + | Platelet | 62 (L) | 140 - 440 K/uL | [facility] | | | Count | | | [facility] | | | | | | MEDICAL | | | | | | CENTER - | | | | | | LABORATORY | | + + + + + + | MPV | 9.2 | fL | [facility] | | | | | | [facility] | | | | | | MEDICAL | | | | | | CENTER - | | | | | | LABORATORY | | + + + + + + | % | 61.4 | 45.0 - 82.0 % | [facility] | | | Neutrophils | | | [facility] | | | | | | MEDICAL | | | | | | CENTER - | | | | | | LABORATORY | | + + + + + + | % | 19.4 (L) | 20.0 - 45.0 % | [facility] | | | Lymphocytes | | | [facility] | | | | | | MEDICAL | | | | | | CENTER - | | | | | | LABORATORY | | + + + + + + | % Monocytes | 14.8 (H) | 4.0 - 12.0 % | [facility] | | | | | | [facility] | | | | | | MEDICAL | | | | | | CENTER - | | | | | | LABORATORY | | + + + + + + | % | 2.8 | 0.0 - 5.0 % | [facility] | | | Eosinophils | | | [facility] | | | | | | MEDICAL | | | | | | CENTER - | | | | | | LABORATORY | | + + + + + + | % Basophils | 1.6 (H) | 0.0 - 1.0 % | [facility] | | | | | | [facility] | | | | | | MEDICAL | | | | | | CENTER - | | | | | | LABORATORY | | + + + + + + | Absolute | 1.40 (L) | 1.80 - 8.50 | [facility] | [...] | Absolute | 0.30 | 0.00 - 1.00 | [facility] | [...] [address] | [place] | [phone] | | [facility] | | [address] | | | - LABORATORY | | | | + + + + + Protime INR (05/05/2017 10:25 AM PST) + + + + + + | Component | Value | Ref Range | Performed | Pathologist | | | | | At | Signature | + + + + + + | Prothrombin | 16.0 (H) | 11.3 - 13.9 | [facility] | | | Time | | seconds | [facility] | | | | | | MEDICAL | | | | | | CENTER - | | | | | | LABORATORY | | + + + + + + | INR | 1.28 (H)Comment: Usual | 0.90 - 1.10 | [facility] | | | | Oral Anticoagulation | | [facility] | | | | Range: 2.0 [...] [address] | [place] | [phone] | | [facility] | | [address] | | | - LABORATORY | | | | + + + + + Comprehensive Metabolic Panel (05/05/2017 10:25 AM PST) + + + + + + | Component | Value | Ref Range | Performed | Pathologist | | | | | At | Signature | + + + + + + | Na | 124 (L) | 136 - 149 | [facility] | | | | | mmol/L | [facility] | | | | | | MEDICAL | | | | | | CENTER - | | | | | | LABORATORY | | + + + + + + | K | 4.2 | 3.5 - 5.1 | [facility] | [...] (L) | 7 - 18 mg/dL | [place] | | | | | | [facility] | | | | | | MEDICAL | | | | | | CENTER - | | | | | | LABORATORY | | + + + + + + | Creatinine | 0.39 (L) | 0.60 - 1.30 | [place] | | | | | mg/dL | [facility] | | | | | | MEDICAL | | | | | | CENTER - | | | | | | LABORATORY | | + + + + + + | eGFR, | >60Comment: GLOMERULAR | >=60 | [facility] | | | non- | FILTRATION | mL/min/1.73m2 | [facility] | | | [place] | RATE,ESTIMATED | | MEDICAL | | | | mL/min/1.55u8Kipn than | | CENTER - | | [...] + + + | Calcium | 7.9 (L) | 8.3 - 10.5 | [facility] [...] + + + + | Bilirubin | 1.3 | 0.1 - 1.5 mg/dL | [facility] [...] + + + + | AST | 61 (H) | 10 - 42 U/L | [...] + + + + | Alkaline | 112 (H) | 40 - 110 U/L | [...] | bulin Ratio | | | [facility] | | | | | | MEDICAL | | | | | | CENTER - | | | | | | LABORATORY | | + + + + + + | BUN/Creatin | 12.8 | | [facility] | | | ine [...] + + | [facility]. | [address] | [place] | [phone] | | [facility] | | [address] | | | - LABORATORY | | | | + + + + + Ammonia (05/05/2017 5:11 AM PST) + +--------+ + + + | Component | Value | Ref Range | Performed | Pathologist | | | | | At | Signature | + +--------+ + + + | Ammonia | 57 (H) | 11 - 35 umol/L | [...] [address] | [place] | [phone] | | [facility] | | [address] | | | - LABORATORY | | | | + + + + + Culture, MRSA (05/04/2017 10:41 AM PST) + + + + + [...] + | [facility] | [address] | [place] | [phone] | | [facility] | | [address] | | | - LABORATORY | | | | + + + + + CBC no Differential (05/04/2017 4:27 AM PST) + + + + + + | Component | Value | Ref Range | Performed | Pathologist | | | | | At | Signature | + + + + + + | White Blood | 3.1 (L) | 4.0 - 11.0 K/uL | [facility] | | | Cells | | | [facility] | | | | | | MEDICAL | | | | | | CENTER - | | | | | | LABORATORY | | + + + + + + | Red Blood | 3.20 (L) | 3.70 - 5.20 | [facility] [...] + + + + | Hematocrit | 29.3 (L) | 34.0 - 47.0 % | [facility] | | | | | | [facility] | | | | | | MEDICAL | | | | | | CENTER - | | | | | | LABORATORY | | + + + + + + | MCV | 91.5 | 83.0 - 101.0 fL | [facility] [...] + + + + | MCHC | 32.9 | 32.0 - 36.0 | [facility] | | | | | g/dL | [facility] | | | | | | MEDICAL | | | | | | CENTER - | | | | | | LABORATORY | | + + + + + + | RDW-CV | 16.2 (H) | <15.0 % | [facility] | | | | | | [facility] | | | | | | MEDICAL | | | | | | CENTER - | | | | | | LABORATORY | | + + + + + + | Platelet | 49 (L) | 140 - 440 K/uL | [facility] | | | Count | | | [facility] | | | | | | MEDICAL | | | | | | CENTER - | | | | | | LABORATORY | | + + + + + + | MPV | 8.3 | fL | [facility] | | | | | [...] [address] | [place] | [phone] | | [facility] | | [address] | | | - LABORATORY | | | | + + + + + Basic Metabolic Panel (05/04/2017 4:27 AM PST) + + + + + [...] | K | 4.0 | 3.5 - 5.1 | [facility] | [...] (L) | 7 - 18 mg/dL | [facility] | | | | | | [facility] | | | | | | MEDICAL | | | | | | CENTER - | | | | | | LABORATORY | | + + + + + + | Creatinine | 0.43 (L) | 0.60 - 1.30 | [facility] [...] mL/min/1.73m2 | [facility] | | | [place] | RATE,ESTIMATED | | MEDICAL | | | | mL/min/1.49g7Xdem than | | CENTER - | | [...] + | Calcium | 7.8 (L) | 8.3 - 10.5 | [facility] [...] + | [facility] | [address] | [place] | [phone] | | [facility] | | [address] | | | - LABORATORY | | | | + + + + + Ethanol (05/03/2017 9:30 PM PST) + +-------+ + + + | Component | Value | Ref Range | Performed | Pathologist | | | | | At | Signature | + +-------+ + + + | ALCOHOL, | 99 | <400 mg/dL | [facility] | | | SERUM/PLASM | | | [facility] | | | A | | | [...] [address] | [place] | [phone] | | [facility] | | [address] | | | - LABORATORY | | | | + + + + + Lipase (05/03/2017 9:30 PM PST) + +-------+ + + + | Component | Value | Ref Range | Performed | Pathologist | | | | | At | Signature | + +-------+ + + + | Lipase | 29 | 0 - 60 U/L | [facility] [...] [address] | [place] | [phone] | | [facility] | | [address] | | | - LABORATORY | | | | + + + + + Magnesium (05/03/2017 9:30 PM PST) + +---------+ + + + | Component | Value | Ref Range | Performed | Pathologist | | | | | At | Signature | + +---------+ + + + | Magnesium | 1.3 (L) | 1.8 - 2.5 mg/dL | [facility] | | | | | | [facility] [...] + | [facility] | [address] | [place] | [phone] | | [facility] | | [address] | | | - LABORATORY | | | | + + + + + Comprehensive Metabolic Panel (05/03/2017 9:30 PM PST) + + + + + + | Component | Value | Ref Range | Performed | Pathologist | | | | | At | Signature | + + + + + + | Na | 131 (L) | 136 - 149 | [facility] | | | | | mmol/L | [facility] | | | | | | [...] + + + + | Glucose | 109 | 70 - 109 mg/dL | [facility] [...] + + + + | Creatinine | 0.40 (L) | 0.60 - 1.30 | [facility] [...] non- | FILTRATION | mL/min/1.73m2 | [facility] | | | [place] | RATE,ESTIMATED | | MEDICAL | | | | mL/min/1.54c6Zmoc than | | CENTER - | | [...] + + + | Calcium | 7.9 (L) | 8.3 - 10.5 | [facility] | | | | | mg/dL | [facility] | | | | | | MEDICAL | | | | | | CENTER - | | | | | | LABORATORY | | + + + + + + | Albumin | 2.1 (L) | 3.2 - 5.0 g/dL | [facility] | | | | | | [facility] | | | | | [...] + + + + | Total | 6.1 | 6.0 - 7.8 g/dL | [facility] | | | Protein | | | [facility] | | | | | | MEDICAL | | | | | | CENTER - | | | | | | LABORATORY | | + + + + + + | AST | 98 (H)Comment: This is | 10 - 42 [...] + + + + | ALT | 25Comment: This is an | 6 - 45 [...] + + + + | Alkaline | 147 (H)Comment: This is | 40 - 110 [...] + + + + | BUN/Creatin | 10.0 | | [facility] | | | ine [...] + | [facility] | [address] | [place] | [phone] | | [facility] | | [address] | | | - LABORATORY | | | | + + + + + CBC with Differential (05/03/2017 9:30 PM PST) + + + + + + | Component | Value | Ref Range | Performed | Pathologist | | | | | At | Signature | + + + + + + | White Blood | 3.9 (L) | 4.0 - 11.0 K/uL | [facility] | | | Cells | | | [facility] | | | | | | MEDICAL | | | | | | CENTER - | | | | | | LABORATORY | | + + + + + + | Red Blood | 3.59 (L) | 3.70 - 5.20 | [facility] | | | Cells | | M/uL | [facility] | | | | | | MEDICAL | | | | | | CENTER - | | | | | | LABORATORY | | + + + + + + | Hemoglobin | 10.7 (L) | 11.5 - 16.0 | [facility] | | | | | g/dL | [facility] | | | | | | MEDICAL | | | | | | CENTER - | | | | | | LABORATORY | | + + + + + + | Hematocrit | 32.7 (L) | 34.0 - 47.0 % | [facility] | | | | | | [facility] | | | | | | MEDICAL | | | | | | CENTER - | | | | | | LABORATORY | | + + + + + + | MCV | 91.0 | 83.0 - 101.0 fL | [facility] [...] + + + + | MCHC | 32.6 | 32.0 - 36.0 | [facility] | | | | | g/dL | [facility] | | | | | | MEDICAL | | | | | | CENTER - | | | | | | LABORATORY | | + + + + + + | RDW-CV | 16.2 (H) | <15.0 % | [facility] | | | | | | [facility] | | | | | | MEDICAL | | | | | | CENTER - | | | | | | LABORATORY | | + + + + + + | Platelet | 57 (L) | 140 - 440 K/uL | [...] + + + + | % | 80.4 | 45.0 - 82.0 % | [facility] | | | Neutrophils | | | [facility] | | | | | | MEDICAL | | | | | | CENTER - | | | | | | LABORATORY | | + + + + + + | % | 9.0 (L) | 20.0 - 45.0 % | [facility] | | | Lymphocytes | | | [facility] | | | | | | MEDICAL | | | | | | CENTER - | | | | | | LABORATORY | | + + + + + + | % Monocytes | 9.5 | 4.0 - 12.0 % | [facility] | | | | | | [facility] | | | | | | MEDICAL | | | | | | CENTER - | | | | | | LABORATORY | | + + + + + + | % | 0.1 | 0.0 - 5.0 % | [facility] | | | Eosinophils | | | [facility] | | | | | | MEDICAL | | | | | | CENTER - | | | | | | LABORATORY | | + + + + + + | % Basophils | 1.0 | 0.0 - 1.0 % | [facility] | | | | | | [facility] | | | | | | MEDICAL | | | | | | CENTER - | | | | | | LABORATORY | | + + + + + + | Absolute | 3.10 | 1.80 - 8.50 | [facility] | | | Neutrophils | | K/uL | [facility] | | | | | | MEDICAL | | | | | | CENTER - | | | | | | LABORATORY | | + + + + + + | Absolute | 0.30 (L) | 0.60 - 3.20 | [facility] | | | Lymphocytes | | K/uL | [facility] | | | | | | MEDICAL | | | | | | CENTER - | | | | | | LABORATORY | | + + + + + + | Absolute | 0.40 | 0.00 - 1.00 | [facility] | [...] ST. | [address] | [place], [place] | [phone] | | [facility] | | [address] | | | - LABORATORY | | | | + + + + + documented in this encounter Visit Diagnoses + + | Diagnosis | + + | Alcohol withdrawal seizure with delirium (HCC) - Primary | + + | Hypomagnesemia Disorders of magnesium metabolism | + + | Alcohol withdrawal syndrome with complication (HCC) | + + | Seizure due to alcohol withdrawal, uncomplicated (HCC) | + + | Anemia, unspecified type | + + | Alcoholic cirrhosis of liver with ascites (HCC) Alcoholic cirrhosis of liver | + + | Hepatic encephalopathy (HCC) Hepatic encephalopathy | + + | Hyponatremia Hyposmolality and/or hyponatremia | + + | Pancytopenia (HCC) Other pancytopenia | + + documented in this encounter Administered Medications + +--------+ +--------+------+------+ | Medication Order | MAR | Action | Dose | Rate | Site | | | Action | Date | | | | + +--------+ +--------+------+------+ | acetaminophen (TYLENOL) tablet | Given | 05/10/19 | 325 mg | | | | 650 mg 650 mg, Oral, EVERY 4 | | 18 3:14 | | | | | HOURS PRN, Pain, or fever >= 38.3 | | AM PST | | | | | C (101.5 F), Starting Fri | | | | | | | 05/04/17 at 1032 | | | | | | + +--------+ +--------+------+------+ +-------+ +--------+---+---+ | Given | 05/09/19 | 650 mg | | | | | 18 8:44 | | | | | | PM PST | | | | +-------+ +--------+---+---+ | Given | 05/08/19 | 325 mg | | | | | 18 10:28 | | | | | | PM PST | | | | +-------+ +--------+---+---+ +---+---+ | | | +---+---+ + +-------+ + +---+---+ | adult multivitamin with | Given | 05/12/19 | 1 tablet | | | | minerals/iron tablet 1 tablet 1 | | 18 9:06 | | | | | tablet, Oral, DAILY, First dose | | AM PST | | | | | on [facility] 05/10/17 at 1145 | | | | | | + +-------+ + +---+---+ +-------+ + +---+---+ | Given | 05/11/19 | 1 tablet | | | | | 18 9:08 | | | | | | AM PST | | | | +-------+ + +---+---+ +---+---+ | | | +---+---+ + +-------+ +--------+---+---+ | artificial tears (PF) (REFRESH | Given | 05/08/19 | 1 drop | | | | CELLUVISC) ophthalmic solution 1 | | 18 12:08 | | | | | drop 1 drop, Both Eyes, EVERY 1 | | AM PST | | | | | HOUR PRN, Dry Eyes, Starting Mon | | | | | | | 05/07/17 at 2324 | | | | | | + +-------+ +--------+---+---+ +---+---+ | | | +---+---+ + +-------+ + +---+---+ | B complex vitamin/renal | Given | 05/12/19 | 1 tablet | | | | multivitamin (DIALYVITE, | | 18 9:06 | | | | | VOL-CARE) 1 tablet, Oral, | | AM PST | | | | | DAILY, First dose on [facility] 05/10/17 | | | | | | | at 1145 | | | | | | + +-------+ + +---+---+ +-------+ + +---+---+ | Given | 05/11/19 | 1 tablet | | | | | 18 9:08 | | | | | | AM PST | | | | +-------+ + +---+---+ | Given | 05/10/19 | 1 tablet | | | | | 18 1:37 | | | | | | PM PST | | | | +-------+ + +---+---+ +---+---+ | | | +---+---+ + +-------+ +---------+---+---+ | carvedilol (COREG) tablet 12.5 | Given | 05/08/19 | 12.5 mg | | | | mg 12.5 mg, Oral, 2 TIMES DAILY, | | 18 8:58 | | | | | First dose (after last | | AM PST | | | | | modification) on Sun05/07/17 at | | | | | | | 2100 | | | | | | + +-------+ +---------+---+---+ +-------+ +---------+---+---+ | Given | 05/07/19 | 12.5 mg | | | | | 18 9:41 | | | | | | PM PST | | | | +-------+ +---------+---+---+ +---+---+ | | | +---+---+ + +-------+ +---------+---+---+ | carvedilol (COREG) tablet 6.25 | Given | 05/07/19 | 6.25 mg | | | | mg 6.25 mg, Oral, 2 TIMES DAILY | | 18 12:01 | | | | | WITH BREAKFAST & DINNER, First | | PM PST | | | | | dose on Sun05/07/17 at 1200 | | | | | | + +-------+ +---------+---+---+ +---+---+ | | | +---+---+ + +-------+ +---------+---+---+ | carvedilol (COREG) tablet 6.25 | Given | 05/07/19 | 6.25 mg | | | | mg 6.25 mg, Oral, ONCE, Mon | | 18 2:50 | | | | | 05/07/17 at 1500, For 1 dose | | PM PST | | | | + +-------+ +---------+---+---+ +---+---+ | | | +---+---+ + +-------+ +--------+ +---+ | dexmedetomidine (PRECEDEX) 30 | Given | 05/05/19 | 30 mcg | 45 mL/hr | | | mcg in sodium chloride 0.9% bolus | | 18 9:01 | | | | | 30 mcg, Intravenous, Administer | | AM PST | | | | | over 10 Minutes, ONCE, Sat | | | | | | | 05/05/17 at 0830, For 1 dose | | | | | | + +-------+ +--------+ +---+ +---+---+ | | | +---+---+ + + + + +-------+---+ | dexmedetomidine (PRECEDEX) 4 | Rate/Dos | 05/07/19 | 0.05 | 0.7 | | | mcg/mL in sodium chloride 0.9% | e Change | 18 5:00 | mcg/kg/h | mL/hr | | | 100 mL infusion 0-0.7 mcg/kg/hr | | AM PST | r | | | | | | | | | | | 59.5 kg (0-10.4125 mL/hr, | | | | | | | rounded to 0-10.4 mL/hr), at | | | | | | | 0-10.4 mL/hr, Intravenous, | | | | | | | TITRATED, Starting 05/05/17 at | | | | | | | 0830, Please change range to | | | | | | | 0.05-0.7 mcg/kg/hr. Pt very | | | | | | | sensitive, | | | | | | + + + + +-------+---+ + + + +-------+---+ | Rate/Dose Change | 05/07/19 | 0.1 | 1.5 | | | | 18 12:35 | mcg/kg/h | mL/hr | | | | AM PST | r | | | + + + +-------+---+ | Rate/Dose Change | 05/06/19 | 0.1 | 1.5 | | | | 18 2:53 | mcg/kg/h | mL/hr | | | | PM PST | r | | | + + + +-------+---+ +---+---+ | | | +---+---+ + +-------+ +------+---+---+ | folic acid tablet 1 mg 1 mg, | Given | 05/12/19 | 1 mg | | | | Oral, DAILY, First dose on Sun | | 18 9:06 | | | | | 18 at 1100 | | AM PST | | | | + +-------+ +------+---+---+ +-------+ +------+---+---+ | Given | 05/11/19 | 1 mg | | | | | 18 9:08 | | | | | | AM PST | | | | +-------+ +------+---+---+ | Given | 05/10/19 | 1 mg | | | | | 18 9:24 | | | | | | AM PST | | | | +-------+ +------+---+---+ +---+---+ | | | +---+---+ + +-------+ +-------+---+---+ | furosemide (LASIX) tablet 20 mg | Given | 05/12/19 | 20 mg | | | | 20 mg, Oral, DAILY, First dose | | 18 9:06 | | | | | on [facility] 05/10/17 at 0900 | | AM PST | | | | + +-------+ +-------+---+---+ +-------+ +-------+---+---+ | Given | 05/11/19 | 20 mg | | | | | 18 9:08 | | | | | | AM PST | | | | +-------+ +-------+---+---+ | Given | 05/10/19 | 20 mg | | | | | 18 9:24 | | | | | | AM PST | | | | +-------+ +-------+---+---+ +---+---+ | | | +---+---+ + +-------+ +--------+---+ + | heparin 5,000 units/mL | Given | 05/12/19 | 5,000 | | Abdomen- | | injection 5,000 Units 5,000 | | 18 9:07 | Units | | LUQ | | Units, Subcutaneous, EVERY 12 | | AM PST | | | | | HOURS (2 times per day), First | | | | | | | dose on Sun05/04/17 at 1100 | | | | | | + +-------+ +--------+---+ + +-------+ +--------+---+ + | Given | 05/11/19 | 5,000 | | Abdomen- | | | 18 8:43 | Units | | RLQ | | | PM PST | | | | +-------+ +--------+---+ + | Given | 05/11/19 | 5,000 | | Abdomen- | | | 18 9:08 | Units | | LLQ | | | AM PST | | | | +-------+ +--------+---+ + +---+---+ | | | +---+---+ + + + +---+ +---+ | lactated ringers (LR) infusion | Restarte | 05/07/19 | | 75 mL/hr | | | at 75 mL/hr, Intravenous, | d | 18 12:35 | | | | | CONTINUOUS, Starting 05/06/17 | | AM PST | | | | | at 1030 | | | | | | + + + +---+ +---+ +---------+ +---+ +---+ | New Bag | 05/06/19 | | 75 mL/hr | | | | 18 10:33 | | | | | | AM PST | | | | +---------+ +---+ +---+ +---+---+ | | | +---+---+ + +-------+ +--------+---+---+ | lactulose liquid 30 mL 30 mL, | Given | 05/06/19 | 30 mLs | | | | Oral, 3 TIMES DAILY, First dose | | 18 8:12 | | | | | on 05/05/17 at 0900 | | AM PST | | | | + +-------+ +--------+---+---+ +-------+ +--------+---+---+ | Given | 05/05/19 | 30 mLs | | | | | 18 9:36 | | | | | | PM PST | | | | +-------+ +--------+---+---+ | Given | 05/05/19 | 30 mLs | | | | | 18 8:53 | | | | | | AM PST | | | | +-------+ +--------+---+---+ +---+---+ | | | +---+---+ + +-------+ +--------+---+---+ | lactulose liquid 30 mL 30 mL, | Given | 05/10/19 | 30 mLs | | | | Oral, 2 TIMES DAILY, First dose | | 18 9:24 | | | | | (after last modification) on Sun | | AM PST | | | | | 05/06/17 at 2100, Titrate to bowel | | | | | | | movement 2-3/day, | | | | | | + +-------+ +--------+---+---+ +-------+ +--------+---+---+ | Given | 05/09/19 | 30 mLs | | | | | 18 8:33 | | | | | | PM PST | | | | +-------+ +--------+---+---+ | Given | 05/09/19 | 30 mLs | | | | | 18 10:48 | | | | | | AM PST | | | | +-------+ +--------+---+---+ +---+---+ | | | +---+---+ + +-------+ +--------+---+---+ | lactulose liquid 30 mL 30 mL, | Given | 05/11/19 | 30 mLs | | | | Oral, 4 TIMES DAILY, First dose | | 18 9:08 | | | | | (after last modification) on [facility] | | AM PST | | | | | 05/10/17 at 1300, Titrate to bowel | | | | | | | movement 2-3/day, | | | | | | + +-------+ +--------+---+---+ +-------+ +--------+---+---+ | Given | 05/10/19 | 30 mLs | | | | | 18 1:38 | | | | | | PM PST | | | | +-------+ +--------+---+---+ +---+---+ | | | +---+---+ + +-------+ +--------+---+---+ | lactulose liquid 30 mL 30 mL, | Given | 05/12/19 | 30 mLs | | | | Oral, 3 TIMES DAILY, First dose | | 18 2:32 | | | | | (after last modification) on Fri | | PM PST | | | | | 05/11/17 at 2100, Titrate to bowel | | | | | | | movement 2-3/day, | | | | | | + +-------+ +--------+---+---+ +-------+ +--------+---+---+ | Given | 05/12/19 | 30 mLs | | | | | 18 9:06 | | | | | | AM PST | | | | +-------+ +--------+---+---+ | Given | 05/11/19 | 30 mLs | | | | | 18 8:43 | | | | | | PM PST | | | | +-------+ +--------+---+---+ +---+---+ | | | +---+---+ + +-------+ +-------+---+---+ | lisinopril (PRINIVIL, ZESTRIL) | Given | 05/09/19 | 10 mg | | | | tablet 10 mg 10 mg, Oral, DAILY, | | 18 6:19 | | | | | First dose on Sun05/09/17 at | | PM PST | | | | | 1745, Hold if SBP<110, | | | | | | + +-------+ +-------+---+---+ + +---+ | | | + +---+ | LORazepam (ATIVAN) injection | | | 0.5-4 mg 0.5-4 mg, Intravenous, | | | PRN, Withdrawal Symptoms, CIWA | | | PROTOCOL, Starting [facility] 05/10/17 at | | | 1126, CIWA <10: No Dose - | | | Reassess at least Q4h CIWA 10-15: | | | 1mg - Reassess in 2hr CIWA | | | 16-20: 2mg - Reassess in 1hr CIWA | | | 21-25: 3mg - Reassess in 1hr | | | CIWA >25 - 4mg - Reassess in | | | 30min If both PO and IV options | | | are available, always use PO | | | first if tolerating PO and | | | patient safe to swallow. Do NOT | | | administer both PO and IV dosing | | | at the same time. , | | + +---+ | | | + +---+ + +-------+ +------+---+---+ | LORazepam (ATIVAN) injection 1 | Given | 05/03/19 | 1 mg | | | | mg 1 mg, Intravenous, ONCE, [facility] | | 18 9:39 | | | | | 05/03/17 at 2125, For 1 dose | | PM PST | | | | + +-------+ +------+---+---+ +---+---+ | | | +---+---+ + +-------+ +------+---+---+ | LORazepam (ATIVAN) injection 1 | Given | 05/04/19 | 1 mg | | | | mg 1 mg, Intravenous, ONCE, Fri | | 18 3:49 | | | | | 05/04/17 at 1600, For 1 dose | | PM PST | | | | + +-------+ +------+---+---+ +---+---+ | | | +---+---+ + +-------+ +------+---+---+ | LORazepam (ATIVAN) injection 1 | Given | 05/10/19 | 1 mg | | | | mg 1 mg, Intravenous, ONCE, [facility] | | 18 11:20 | | | | | 05/10/17 at 1145, For 1 dose | | AM PST | | | | + +-------+ +------+---+---+ +---+---+ | | | +---+---+ + +-------+ +------+---+---+ | LORazepam (ATIVAN) injection | Given | 05/06/19 | 2 mg | | | | 1-8 mg 1-8 mg, Intravenous, | | 18 7:43 | | | | | EVERY 15 MIN PRN, See Admin | | PM PST | | | | | Instruction, Starting 05/04/17 | | | | | | | at 1032, FOR ICU USE ONLY | | | [...] +-------+ +------+---+---+ +-------+ +------+---+---+ | Given | 05/06/19 | 2 mg | | | | | 18 1:51 | | | | | | AM PST | | | | +-------+ +------+---+---+ | Given | 05/05/19 | 2 mg | | | | | 18 11:56 | | | | | | PM PST | | | | +-------+ +------+---+---+ + +---+ | | | + +---+ | LORazepam (ATIVAN) tablet 1-4 | | | mg 1-4 mg, Oral, PRN, Withdrawal | | | Symptoms, CIWA PROTOCOL, | | | Starting [facility] 05/10/17 at 1126, CIWA | | | <10: No Dose - Reassess at least | | | Q4h CIWA 10-15: 1mg - Reassess | | | in 2hr CIWA 16-20: 2mg - Reassess | | | in 1hr CIWA 21-25: 3mg - | | | Reassess in 1hr CIWA >25 - 4mg - | | | Reassess in 30min If both PO and | | | IV options are available, always | | | use PO first if tolerating PO | | | and patient safe to swallow. Do | | | NOT administer both PO and IV | | | dosing at the same time. , | | + +---+ | | | + +---+ + +-------+ +------+---+---+ | LORazepam (ATIVAN) tablet 2 mg | Given | 05/04/19 | 2 mg | | | | 2 mg, Oral, EVERY 6 HOURS ( | | 18 6:30 | | | | | times per day), First dose on Fri | | PM PST | | | | | 05/04/17 at 0420, For 6 doses, | | | | | | | hold for excessive sedation, | | | | | | + +-------+ +------+---+---+ +-------+ +------+---+---+ | Given | 05/04/19 | 2 mg | | | | | 18 12:15 | | | | | | PM PST | | | | +-------+ +------+---+---+ | Given | 05/04/19 | 2 mg | | | | | 18 7:29 | | | | | | AM PST | | | | +-------+ +------+---+---+ +---+---+ | | | +---+---+ + +-------+ +------+---+---+ | LORazepam (ATIVAN) tablet 4 mg | Given | 05/06/19 | 4 mg | | | | 4 mg, Oral, EVERY 4 HOURS | | 18 8:12 | | | | | INTERVAL, First dose (after last | | AM PST | | | | | modification) on 05/05/17 at | | | | | | | 0108, For 36 hours, hold for | | | | | | | excessive sedation, | | | | | | + +-------+ +------+---+---+ +-------+ +------+---+---+ | Given | 05/06/19 | 4 mg | | | | | 18 12:56 | | | | | | AM PST | | | | +-------+ +------+---+---+ | Given | 05/05/19 | 4 mg | | | | | 18 1:13 | | | | | | PM PST | | | | +-------+ +------+---+---+ +---+---+ | | | +---+---+ + +-------+ +--------+---+---+ | magnesium oxide (MAG-OX) tablet | Given | 05/12/19 | 400 mg | | | | 400 mg 400 mg, Oral, DAILY, | | 18 9:05 | | | | | First dose on [facility] 05/10/17 at 0900 | | AM PST | | | | + +-------+ +--------+---+---+ +-------+ +--------+---+---+ | Given | 05/11/19 | 400 mg | | | | | 18 9:08 | | | | | | AM PST | | | | +-------+ +--------+---+---+ | Given | 05/10/19 | 400 mg | | | | | 18 9:24 | | | | | | AM PST | | | | +-------+ +--------+---+---+ +---+---+ | | | +---+---+ + +---------+ +-----+ +---+ | magnesium sulfate 2 g/50 mL | New Bag | 05/03/19 | 2 g | 25 mL/hr | | | IVPB 2 g 2 g, Intravenous, | | 18 10:23 | | | | | Administer over 120 Minutes, | | PM PST | | | | | ONCE, [facility] 05/03/17 at 2215, For 1 | | | | | | | dose, Infuse over 2 hours., | | | | | | + +---------+ +-----+ +---+ +---+---+ | | | +---+---+ + +---------+ +-----+ +---+ | magnesium sulfate 2 g/50 mL | New Bag | 05/04/19 | 2 g | 25 mL/hr | | | IVPB 2 g 2 g, Intravenous, | | 18 6:19 | | | | | Administer over 120 Minutes, | | PM PST | | | | | ONCE, [facility] 05/04/17 at 1830, For 1 | | | | | | | dose, Infuse over 2 hours., | | | | | | + +---------+ +-----+ +---+ +---+---+ | | | +---+---+ + +---------+ +-----+ +---+ | magnesium sulfate 2 g/50 mL | New Bag | 05/05/19 | 2 g | 25 mL/hr | | | IVPB 2 g 2 g, Intravenous, | | 18 2:44 | | | | | Administer over 120 Minutes, | | PM PST | | | | | ONCE, 05/05/17 at 1430, For 1 | | | | | | | dose, Maximum recommended | | | | | | | infusion rate = 1 gram/hour., | | | | | | + +---------+ +-----+ +---+ +---+---+ | | | +---+---+ + +---------+ +-----+ +---+ | magnesium sulfate 2 g/50 mL | New Bag | 05/11/19 | 2 g | 25 mL/hr | | | IVPB 2 g 2 g, Intravenous, | | 18 9:06 | | | | | Administer over 120 Minutes, | | AM PST | | | | | ONCE, 05/11/17 at 0745, For 1 | | | | | | | dose, Maximum recommended | | | | | | | infusion rate = 1 gram/hour., | | | | | | + +---------+ +-----+ +---+ +---+---+ | | | +---+---+ + +---------+ +-----+ +---+ | magnesium sulfate 4 g/100 mL | New Bag | 05/09/19 | 4 g | 25 mL/hr | | | IVPB 4 g 4 g, Intravenous, | | 18 1:32 | | | | | Administer over 240 Minutes, | | PM PST | | | | | ONCE, [facility] 05/09/17 at 1330, For 1 | | | | | | | dose, Maximum recommended | | | | | | | infusion rate = 1 gram/hour., | | | | | | + +---------+ +-----+ +---+ +---+---+ | | | +---+---+ + +-------+ +------+---+---+ | melatonin tablet 3 mg 3 mg, | Given | 05/09/19 | 3 mg | | | | Oral, NIGHTLY PRN, Insomnia, | | 18 8:44 | | | | | Starting 05/07/17 at 2324 | | PM PST | | | | + +-------+ +------+---+---+ +-------+ +------+---+---+ | Given | 05/08/19 | 3 mg | | | | | 18 10:29 | | | | | | PM PST | | | | +-------+ +------+---+---+ | Given | 05/08/19 | 3 mg | | | | | 18 12:09 | | | | | | AM PST | | | | +-------+ +------+---+---+ +---+---+ | | | +---+---+ + +-------+ + +---+---+ | multivitamin (POLY VITAMIN) | Given | 05/10/19 | 1 tablet | | | | chewable tablet 1 tablet 1 | | 18 9:25 | | | | | tablet, Oral, DAILY, First dose | | AM PST | | | | | on 05/04/17 at 1100 | | | | | | + +-------+ + +---+---+ +-------+ + +---+---+ | Given | 05/09/19 | 1 tablet | | | | | 18 11:06 | | | | | | AM PST | | | | +-------+ + +---+---+ | Given | 05/08/19 | 1 tablet | | | | | 18 9:00 | | | | | | AM PST | | | | +-------+ + +---+---+ +---+---+ | | | +---+---+ + +-------+ +-------+---+---+ | nadolol (CORGARD) tablet 20 mg | Given | 05/12/19 | 20 mg | | | | 20 mg, Oral, DAILY, First dose | | 18 9:05 | | | | | on 05/09/17 at 0900 | | AM PST | | | | + +-------+ +-------+---+---+ +-------+ +-------+---+---+ | Given | 05/11/19 | 20 mg | | | | | 18 9:08 | | | | | | AM PST | | | | +-------+ +-------+---+---+ | Given | 05/10/19 | 20 mg | | | | | 18 9:25 | | | | | | AM PST | | | | +-------+ +-------+---+---+ +---+---+ | | | +---+---+ + +-------+ +------+---+---+ | ondansetron (ZOFRAN) injection | Given | 05/03/19 | 4 mg | | | | 4 mg 4 mg, Intravenous, EVERY 1 | | 18 9:40 | | | | | HOUR PRN, Nausea, Vomiting, | | PM PST | | | | | Starting [facility] 05/03/17 at 2119, For | | | | | | | 2 doses | | | | | | + +-------+ +------+---+---+ +---+---+ | | | +---+---+ + +-------+ +------+---+---+ | ondansetron (ZOFRAN) injection | Given | 05/10/19 | 4 mg | | | | 4 mg 4 mg, Intravenous, EVERY 6 | | 18 12:20 | | | | | HOURS PRN, Nausea, Vomiting, | | PM PST | | | | | Starting Sun05/04/17 at 1032, | | | | | | | First line agent, | | | | | | + +-------+ +------+---+---+ +---+---+ | | | +---+---+ + +-------+ +-------+---+---+ | pantoprazole (PROTONIX) | Given | 05/12/19 | 40 mg | | | | injection 40 mg 40 mg, | | 18 8:50 | | | | | Intravenous, 2 TIMES DAILY, First | | AM PST | | | | | dose on Sun05/04/17 at 0330, If | | | | | | | reconstituting, mix each 40 mg | | | | | | | vial with 10 mL NS to make 4 | | | | | | | mg/mL., | | | | | | + +-------+ +-------+---+---+ +-------+ +-------+---+---+ | Given | 05/11/19 | 40 mg | | | | | 18 8:43 | | | | | | PM PST | | | | +-------+ +-------+---+---+ | Given | 05/11/19 | 40 mg | | | | | 18 9:08 | | | | | | AM PST | | | | +-------+ +-------+---+---+ +---+---+ | | | +---+---+ + +-------+ +--------+---+---+ | potassium chloride (K-DUR) ER | Given | 05/04/19 | 20 mEq | | | | tablet 20 mEq 20 mEq, Oral, | | 18 12:51 | | | | | EVERY 2 HOURS, First dose on [facility] | | AM PST | | | | | 05/03/17 at 2215, For 2 doses, | | | | | | | Dose is every 2 hours for 2 | | | | | | | doses, OK to substitute liquid | | | | | | | formulation if better tolerated., | | | | | | | | | | | | | + +-------+ +--------+---+---+ +-------+ +--------+---+---+ | Given | 05/03/19 | 20 mEq | | | | | 18 10:21 | | | | | | PM PST | | | | +-------+ +--------+---+---+ +---+---+ | | | +---+---+ + +-------+ +--------+---+---+ | potassium chloride (K-DUR) ER | Given | 05/09/19 | 20 mEq | | | | tablet 20 mEq 20 mEq, Oral, | | 18 1:32 | | | | | ONCE, 05/09/17 at 1330, For 1 | | PM PST | | | | | dose | | | | | | + +-------+ +--------+---+---+ +---+---+ | | | +---+---+ + +-------+ +--------+---+---+ | rifAXIMin (XIFAXAN) tablet 550 | Given | 05/12/19 | 550 mg | | | | mg 550 mg, Oral, 2 TIMES DAILY, | | 18 9:06 | | | | | First dose on [facility] 05/10/17 at 1315, | | AM PST | | | | | Indications: Hepatic | | | | | | | Encephalopathy | | | | | | + +-------+ +--------+---+---+ +-------+ +--------+---+---+ | Given | 05/11/19 | 550 mg | | | | | 18 8:43 | | | | | | PM PST | | | | +-------+ +--------+---+---+ | Given | 05/11/19 | 550 mg | | | | | 18 9:08 | | | | | | AM PST | | | | +-------+ +--------+---+---+ +---+---+ | | | +---+---+ + +---------+ +---+-------+---+ | sodium chloride 0.45% (12 NS) | New Bag | 05/05/19 | | 100 | | | 1,000 mL with potassium chloride | | 18 5:45 | | mL/hr | | | 40 mEq infusion at 100 mL/hr, | | AM PST | | | | | Intravenous, CONTINUOUS, Starting | | | | | | | 05/04/17 at 1845 | | | | | | + +---------+ +---+-------+---+ +---------+ +---+-------+---+ | New Bag | 05/04/19 | | 100 | | | | 18 7:52 | | mL/hr | | | | PM PST | | | | +---------+ +---+-------+---+ +---+---+ | | | +---+---+ + +---------+ +---+-------+---+ | sodium chloride 0.9% (NS) 1,000 | New Bag | 05/03/19 | | 125 | | | mL with potassium chloride 20 | | 18 10:41 | | mL/hr | | | mEq, magnesium sulfate 1 g, adult | | PM PST | | | | | multivitamin 10 mL, thiamine | | | | | | | (VITAMIN B-1) 100 mg, folic acid | | | | | | | 1 mg infusion at 125 mL/hr, | | | | | | | Intravenous, ONCE, [facility] 05/03/17 at | | | | | | | 2205, For 1 dose | | | | | | + +---------+ +---+-------+---+ +---+---+ | | | +---+---+ + +---------+ +--------+-------+---+ | sodium chloride 0.9% (NS) bolus | New Bag | 05/03/19 | 1,000 | 2000 | | | 1,000 mL 1,000 mL, Intravenous, | | 18 9:37 | mLs | mL/hr | | | Administer over 30 Minutes, | | PM PST | | | | | ONCE, [facility] 05/03/17 at 2125, For 1 | | | | | | | dose | | | | | | + +---------+ +--------+-------+---+ +---+---+ | | | +---+---+ + +---------+ +---+-------+---+ | sodium chloride 0.9% with KCl | New Bag | 05/06/19 | | 100 | | | 20 mEq/L (NS + KCL 20) infusion | | 18 8:10 | | mL/hr | | | at 100 mL/hr, Intravenous, | | AM PST | | | | | CONTINUOUS, Starting 05/05/17 | | | | | | | at 1230 | | | | | | + +---------+ +---+-------+---+ +---------+ +---+-------+---+ | New Bag | 05/05/19 | | 100 | | | | 18 10:37 | | mL/hr | | | | PM PST | | | | +---------+ +---+-------+---+ | New Bag | 05/05/19 | | 100 | | | | 18 12:31 | | mL/hr | | | | PM PST | | | | +---------+ +---+-------+---+ +---+---+ | | | +---+---+ + +-------+ +--------+---+---+ | sodium citrate-citric acid | Given | 05/12/19 | 20 mLs | | | | (BICITRA) liquid 20 mL 20 mL, | | 18 9:08 | | | | | Oral, 2 TIMES DAILY, First dose | | AM PST | | | | | on Sun05/10/17 at 1300, Dilute in | | | | | | | 1 to 3 ounces water prior to | | | | | | | administration., | | | | | | + +-------+ +--------+---+---+ +-------+ +--------+---+---+ | Given | 05/11/19 | 20 mLs | | | | | 18 8:43 | | | | | | PM PST | | | | +-------+ +--------+---+---+ | Given | 05/11/19 | 20 mLs | | | | | 18 9:06 | | | | | | AM PST | | | | +-------+ +--------+---+---+ +---+---+ | | | +---+---+ + +-------+ +-------+---+---+ | spironolactone (ALDACTONE) | Given | 05/12/19 | 25 mg | | | | tablet 25 mg 25 mg, Oral, DAILY, | | 18 9:05 | | | | | First dose on [facility] 05/10/17 at | | AM PST | | | | | 0900, Hazardous: Use appropriate | | | | | | | handling precautions., | | | | | | + +-------+ +-------+---+---+ +-------+ +-------+---+---+ | Given | 05/11/19 | 25 mg | | | | | 18 9:08 | | | | | | AM PST | | | | +-------+ +-------+---+---+ | Given | 05/10/19 | 25 mg | | | | | 18 9:24 | | | | | | AM PST | | | | +-------+ +-------+---+---+ +---+---+ | | | +---+---+ + +---------+ +--------+-------+---+ | thiamine (VITAMIN B-1) 100 mg | New Bag | 05/07/19 | 100 mg | 102 | | | in sodium chloride 0.9% 50 mL | | 18 8:14 | | mL/hr | | | IVPB 100 mg, Intravenous, | | AM PST | | | | | Administer over 30 Minutes, | | | | | | | DAILY, First dose on Sun05/04/17 | | | | | | | at 1830 | | | | | | + +---------+ +--------+-------+---+ +---------+ +--------+-------+---+ | New Bag | 05/06/19 | 100 mg | 102 | | | | 18 8:01 | | mL/hr | | | | AM PST | | | | +---------+ +--------+-------+---+ | New Bag | 05/05/19 | 100 mg | 102 | | | | 18 8:05 | | mL/hr | | | | AM PST | | | | +---------+ +--------+-------+---+ +---+---+ | | | +---+---+ + +-------+ +--------+---+---+ | thiamine (VITAMIN B-1) tablet | Given | 05/04/19 | 100 mg | | | | 100 mg 100 mg, Oral, DAILY, | | 18 10:58 | | | | | First dose on Sun05/04/17 at 1100 | | AM PST | | | | + +-------+ +--------+---+---+ +---+---+ | | | +---+---+ + +-------+ +--------+---+---+ | thiamine (VITAMIN B-1) tablet | Given | 05/12/19 | 100 mg | | | | 100 mg 100 mg, Oral, DAILY, | | 18 9:05 | | | | | First dose on Sun05/07/17 at 1900 | | AM PST | | | | + +-------+ +--------+---+---+ +-------+ +--------+---+---+ | Given | 05/11/19 | 100 mg | | | | | 18 9:08 | | | | | | AM PST | | | | +-------+ +--------+---+---+ | Given | 05/10/19 | 100 mg | | | | | 18 9:24 | | | | | | AM PST | | | | +-------+ +--------+---+---+ +---+---+ | | | +---+---+ documented in this encounter
--- OUTSIDE RECORDS SUMMARY | ~2020-01-12 | XMS | Encounter Summary ---
Demographics + + + | Address | [address] | | | [place] [address] | + + + | Home Phone | | + + + | Preferred Language | Unknown | + + + | Marital Status | Single | + + + | Jainism Affiliation | [id number] | + + + [...] + | Joanne Pham | ECON | [address] | | | | | [place] | | | | | [address] | | + + + + + | Viktor Berry | EDDIE | Unknown | | + + + + + | Edd Gill | ECON | Unknown | | + + + + + | Conner Barber | ECON | Unknown | | + + + + + Care Team Providers + +------+ + | Care Director Of Retail Operations Name | Role | Phone | + [...] 2016 | | CONVERSION 888 | [place] [address] | | | | | [place] | [place] | | | | | [place] | [id number] | | | | | [address] | | | | | | [phone] | | | +--------+ + + + [...] | maxP.35 mmHg TR Vmax: 2.84 m/s Recovery Room Rn: EMILY | | | Authenticated by: Josee Tinococambria heights Report Date/Time: 03-07-2017 | | | 20:49:19 | | + + + + + | Procedure Note | + + | Edgardo Dean Conversion - 11/28/2018 6:34 PM PDT Patient Name: Jose Miguel BERRY of | | : 1970 Performing Physician: Josee | | Alejandrinacambria heights INDICATIONS------ | | -----Bacteremia, r/o endocarditis CONCLUSIONS [...] cmLVPWd: | | 1.19 cmLVOT Area: 3.57 [id number] Diam: 2.13 cm%FS: 14.01 %EF(Teich): 30.44 | [...] mlLAESV Index (A-L): 47.14 ml/m2LAAs A2C: 22.70 [id number] A-L A2C: 81.19 | | mlLALs A2C: 5.38 cmLAAs A4C: 22.20 [id number] A-L A4C: 70.14 mlLALs A4C: 5.21 | | cmRAAs: 11.60 [id number] A-L: 25.98 mlRAESV MOD: 25.22 mlRALs: 4.40 cmTAPSE: | | 2.53 cmAV maxP.09 mmHgAV meanP.09 mmHgAV Vmax: 1.42 m/Uvaldo Vmean: 0.95 | | m/Uvaldo VTI: 28.76 cmAVA Vmax: 2.80 cm2AVA (VTI): 2.57 [id number] Vmax: 0.00 | | cm2/m2AVAI (VTI): 0.00 cm2/m2LVOT maxP.99 mmHgLVOT meanP.61 mmHgLVSI Dopp: | | 42.64 ml/m2LVSV Dopp: 74.20 mlLVOT Vmax: 1.11 m/sLVOT Vmean: 0.76 m/sLVOT VTI: | | 20.74 cmMV A Juan A: 0.72 m/sMV DecT: 208.92 msMV E Juan A: 0.75 m/sMV E/A Ratio: | | 1.03MV PHT: 60.58 msMVA By PHT: 3.63 [id number] e': 0.05 m/sSeptal E/e': | | 12.78Lateral e': 0.07 m/sLateral E/e': 10.30RAP: 5 mmHgRVSP: 37.35 mmHgTR maxPG: | | 32.35 mmHgTR Vmax: 2.84 m/s Recovery Room Rn: DBSAuthenticated by: Josee | | [facility]Report Date/Time: 03-07-2017 20:49:19 IMPRESSION: 1. The left [...] |TR Vmax: 2.84 m/s | | | |Recovery Room Rn: DBS | |Authenticated by: Josee Little | [...]
--- OUTSIDE RECORDS SUMMARY | ~2020-01-12 | XMS | Encounter Summary ---
Demographics + + + | Address | [address] | | | [place] [address] | + + + | Home Phone [...] + | Joanne Pham | ECON | [address] | | | | | [place] | | | | | [address] | | + + + + + | Viktor Son | EDDIE | Unknown | | + + + + + | Edd Gill | ECON | Unknown | | + + + + + | Conner Barber | ECON | Unknown | | + + + + + Care Team Providers + +------+ + | Care Industrial Property Appraiser Name | Role | Phone | + [...] | | | ogy | Hepatic | [facility] | Gastroenterol | | | | | failure, | HEALTH | ogy [address] | | | | | unspecified | CENTER | [address] | | | | | without coma | [id number] | [place], [place] | | | | | (HCC) End | [facility] | [address] | | | | | stge liver | WAY | Phone: | | | | | disease | JESSICA, | [phone] | | | | | Alcoholic | [place] | Fax: | | | | | cirrhosis of | [address] | [phone] | | | | | liver with | Phone: | | | | | | ascites | [phone] | | | | | | | Fax: | | | | | | | [phone] | | +--------+--------+ + + + + Encounter Details +--------+---------+ + + + | Date | Type | Department | Care Team | Description | +--------+---------+ + + + | 09/08/ | Office | [facility] | Mitchell Stewart | Alcoholic cirrhosis | | 2020 | Visit | GASTROENTEROLOGY | MD Conor [address] | of liver with | | | | [address] | [address]VD [place], [place] | ascites (HCC) | | | | [place], [place] | [address] | (Primary Dx); | | | | [address] | | Ascites due to | | | | [phone] | | alcoholic cirrhosis | | | [...] Stewart MD - 09/09/2019 10:40 AM PDT [facility] Gastroenterology Subjective: Chief Complaint Patient presents [...] since then other than undergoing paracentesis at [facility] in [facility] on 05/02/2019. She claims no further [...] is currently staying at a facility called [facility] in [facility]. Medications are held for her and provided [...] unable to recall, this information came from [facility] record Ciprofloxacin Anaphylaxis, Other (See Comments), Shortness Of Breath and Rash Other reaction(s): Throat Swelling / Closing Pt. Unable to recall, this information came from [facility] record Lactose Anaphylaxis Pt unable to recall, this information came from [facility] record Septra [Sulfamethoxazole-Trimethoprim] Anaphylaxis Sulfa Antibiotics Shortness [...] 30 tablet 0 Multiple Vitamins-Minerals (DAILY MULTIPLE VITAMINS/HOUSEHOLD PERSONAL ASSISTANT) TABS Take 1 tablet by mouth Daily. [...] ESOPHAGOGASTRODUODENOSCOPY; Surgeon: Mitchell Stewart IV, MD; Location: [facility]; Service: Gastroenterology; Laterality: N/A; anesthesia assist if available since may be difficult to sedate UPPER GASTROINTESTINAL ENDOSCOPY 08/26/2018 Procedure: ESOPHAGOGASTRODUODENOSCOPY; Surgeon: Mitchell Stewart IV, MD; [facility]; Service: Gastroenterology; Laterality: N/A; Family History Problem [...] file Gets together: Not on file Attends adventist service: Not on file Active member of [...] to 4 months. Tod Stewart IV, M.D. [facility] Gastroenterology 09/10/2019 This note was dictated using [employer] voice recognition software. Document was reviewed at ti me of dictation but [id number] errors may be present. Please call with any questions or c larifications. TIME: established patient - total direct [id number] time of at least 25 minutes spe [...]
--- OUTSIDE RECORDS SUMMARY | ~2020-01-12 | XMS | Encounter Summary ---
Demographics + + + | Address | [address] | | | [place] [address] | + + + | Home Phone [...] + | Joanne Pham | ECON | [address] | | | | | [place] | | | | | [address] | | + + + + + | Viktor Son | EDDIE | Unknown | | + + + + + | Edd Gill | ECON | Unknown | | + + + + + | Conner Barber | ECON | Unknown | | + + + + + Care Team Providers + +------+ + | Care Research Worker Kitchen Name | Role | Phone | + +------+ + PCP | Unavailable | + +------+ + Encounter Details +--------+ + + + + | Date | Type | Department | Care Team | Description | +--------+ + + + + | 02/06/ | Hospital | [facility] | Carmen, | Fever; Seizure | | 2013 - | Encounter | [facility] | MD [address] | ([facility]); Alcohol | | | | [address] | abuse; UTI (lower | | 02/13/ | | [place], [place] | [place] [address] | urinary tract | | 2013 | | [id number] | [phone] | infection); Hepatic | | | | [phone] | | encephalopathy | | | | [...] Date of Service: 02/13/14 0955 Status: Signed Prosthetic Technician: Micki Redding MD (Physician) Related Notes: Original Note by Micki Redding MD (Physician) filed at 02/13/14 1002 [facility] Service: Hospitalist Physician Discharge Summary Patient ID: [...] ESOPHAGOGASTRODUODENOSCOPY; Surgeon: Mitchell Stewart IV, MD; Location: [facility]; Service: Gastroenterology; Laterality: N/A; anesthesia [...] Feb 07 2014 3:55AM Referring Provider Line: [phone] ID: 001 X-ray Chest 1 View 02/09/2014 [...] The mitr al valve is normal. 18. Mhku-yy-chkiepif mitral regurgitation is present. 19. , the [...] the prescriptions that you need to picker operator. You may get the following medications [...] summary. This entry has been created using [employer] Speech Recognition software and [employer]. The entry has been reviewed and there [...] Date of Service: 02/13/14 1508 Status: Signed Prosthetic Technician: Flora Seaman RN (Registered Nurse) Discharge teaching [...] Efra Gotti PTA Service: (none) Author Type: Gsa Coordinator Filed: 02/13/14 1051 Date of Service: 02/13/14 1049 Status: Signed Prosthetic Technician: Efra Gotti PTA (Gsa Coordinator) 02/13/14 1049 PT Last Visit PT Received [...] 02/12/142031 Date of Service: 02/12/142028 Status: Signed Prosthetic Technician: Alessandro Ward RN (Registered Nurse) Per protocol, CIWA discontinued as of 1999 Micki Walton MD - 02/12/2014 2:08 PM PSTFormatting of this note might be different from t hanny original. Progress Notes by Micki Redding MD at 02/12/141407 Author: Micki Redding MD Service: (none) Author Type: Physician Filed: 02/12/14 1541 Date of Service: 02/12/14 1408 Status: Signed Prosthetic Technician: Micki Redding MD (Physician) [facility] Service: Hospitalist Progress Note Hospital Day: LOS: [...] Feb 07 2014 3:55AM Referring Provider Line: [phone] ID: 001 X-ray Chest 1 View 02/09/2014 [...] PM This entry has been created using [employer] Speech Recognition software and [employer]. The entry has been reviewed and there may still exist sound alike word errors. Mallory Gonzalez PT - 02/12/2014 9:28 AM PST Therapy Progress Note by Mallory Metz PT at 02/12/14927 Author: Mallory Metz PT Service: (none) Author Type: Physical Therapist Filed: 02/12/14 1121 Date of Service: 02/12/14927 Status: Signed Prosthetic Technician: Mallory Metz PT (Physical Therapist) 02/12/14927 PT Last Visit PT Received On 02/12/14 Reason for Treatment Other (comment) (seizure and ETOH withdrawl) Requires PT Follow Up Awaiting tx order Follow up PT Only? No PT Eval/Reassessment Date 02/12/14 Assistance Required 1 person Scaleman Needed No Precautions Other Precautions fall risk, [...] this hospital stay. Prior Function Level of [place] Independent with functional mobility;Independent with ADLs;Independe nt [...] Eval/Reassessment Date 02/12/14 Assistance Required 1 person Scaleman Needed No Precautions Other Precautions fall risk, seizure Other Comments Comments Pt admitted to the hospital due to seizure and ETOH withdrawl. Upon PT arrival, pt in bathroom with SENIOR MASTER SCHEDULER. pt Handoff from SENIOR MASTER SCHEDULER. Pt agreeable to PT assessment. Pt is [...] 02/12/14323 Date of Service: 02/12/14322 Status: Signed Prosthetic Technician: Alessandro Ward RN (Registered Nurse) Left message with PICC RN about clotted lines & requested that someone come to assess this am Dimitri Head MS CCC-ROAD DESIGN ENGINEER - 02/11/2014 5:18 PM PST Therapy Progress Note by Anette Hernandez MS CCC-ROAD DESIGN ENGINEER at 02/11/141717 Author: Anette Hernandez MS CCC-ROAD DESIGN ENGINEER Service: (none) Author Type: Speech and Language Pathol ogist Filed: 02/11/141717 Date of Service: 02/11/141717 Status: Signed Prosthetic Technician: Anette Hernandez MS CCC-ROAD DESIGN ENGINEER (Speech and Language Pathologist) 02/11/141714 Swallowing Assessment [...] /sx aspiration. Pt no longer requires acute ROAD DESIGN ENGINEER services. ROAD DESIGN ENGINEER to d/c, pleas re-order if pt s tatus changes. Staff Notified RN Plan of Care Treatment Plan No futher therapy recommended;Discharge from at this time Dysphagia Goals Pt will have safe/efficient oral intake Thin liquids;Goal met ANETTE HERNANDEZ MS CCC-ROAD DESIGN ENGINEER 02/11/2014 onversion Giraldo saction, Provider Unknown - 02/11/2014 4:50 PM PSTFormatting of this note might be differen t from the original. Case Management by HANNAH Brian at 02/11/14 1650 Author: HANNAH Brian Service: (none) Author Type: General Education Instructor Filed: 02/11/141701 Date of Service: 02/11/141649 Status: Signed Prosthetic Technician: HANNAH Brian (General Education Instructor) 02/11/14 1600 Discharge Planning Evaluation Admitting Diagnosis Seizure, ETOH withdrawl Anticipated Disposition Facility Type Home RAILCAR SWITCHER met with Pt regarding discharge planning, states she is planning to return to prior morgan ing environment where she lives in a home owned by her aunt Joanne Pham. Pt states home is occupied by her uncle, brother and two other women, states there is recreational drinkin g in the home. RAILCAR SWITCHER asked Pt about brusing on legs/arms, denies how they go there, was guarded about her en vironment. RAILCAR SWITCHER encouraged to stay with other family members [...] Lolita Lamas, Alcohol and Drug Counselor at [facility], states Pt has a standing appointment at 10am every . Lolita states she has assisted Pt with ho using resources and states Pt is on a waiting list. Lolita states Pt has been history of bein g homeless, being destitute and living in alleys in the streets in [place], [place], before being taken care by Pt aunt. Lolita Lamas states she has tried to place Pt in inpatient treatment, states this is difficu lt due to Pt being end stage liver disease. [facility] - [phone] ([phone]) [address] / [address] / [place] [address] / Pt does not want to consider placement in a [facility]. DCP: Home ARUN CHAVEZ, Program Medical Director [phone] cell Sarah Rangel, Provider Unknown - 02/11/2014 1:45 PM PST Therapy Progress Note by Fabiana Ortiz PT at 02/11/14 1345 Author: Fabiana Ortiz PT Service: (none) Author Type: Physical Therapist Filed: 02/11/14 1352 Date of Service: 02/11/14 1345 Status: Signed Prosthetic Technician: Fabiana Ortiz PT (Physical Therapist) 02/11/14 1345 [...] Date of Service: 02/11/14 1045 Status: Signed Prosthetic Technician: Fabiana Ortiz PT (Physical Therapist) 02/11/14 1045 PT Last Visit PT Received On 02/11/14 Requires PT Follow Up Unavailable Other Comments Comments Attempted to see pt 2x this AM, she was in with the SENIOR MASTER SCHEDULER getting cleaned up and SENIOR MASTER SCHEDULER asked PT to come back in 15 min, then health care social worker in with pt upon second arrival and aske d pt to come back at a later time. Will attempt to see pt as census allows onver miriam Transaction, Provider Unknown - 02/11/2014 10:09 AM PST Case Management by HANNAH Brian at 02/11/14 1009 Author: HANNAH Brian Service: (none) Author Type: General Education Instructor Filed: 02/11/14 1010 Date of Service: 02/11/14 1009 Status: Signed Prosthetic Technician: HANNAH Brian (General Education Instructor) 02/11/14 1000 Discharge Planning Evaluation Admitting Diagnosis Seizure, ETOH withdrawl Anticipated Disposition Facility Type Home RAILCAR SWITCHER came by room to assess Pt for discharge planning was in bathroom, will continue to foll ow for discharge needs. ARUN CHAVEZ, Program Medical Director [phone] cell onver miriam Transaction, Provider Unknown - 02/11/2014 8:50 AM PST Progress Notes by Savannah Clarke RN at 02/11/14 0850 Author: Savannah Clarke RN Service: (none) Author Type: Registered Nurse Filed: 02/11/14 0855 Date of Service: 02/11/14 0850 Status: Signed Prosthetic Technician: Savannah Clarke RN (Registered Nurse) Called by nursing to assess picc line 2 days in a row. Caps changed, dressing changed. Able to get all 3 lumens flushed with good blood return from 2 lumens. Tavarez lumen remains sluggi sh. picc positional with pt turning head. Micki Walton MD - 02/11/2014 7:46 AM PSTFormatting of this note might be different from t hanyn original. Progress Notes by Micki Redding MD at 02/11/14 0798 Author: Micki Redding MD Service: (none) Author Type: Physician Filed: 02/11/14 0754 Date of Service: 02/11/1446 Status: Signed Prosthetic Technician: Micki Redding MD (Physician) [facility] Service: Hospitalist Progress Note Hospital Day: LOS: 5 days SUBJECTIVE Patient Summary: 43-year-old female with history of alcohol abuse. history of withdra wal seizures, cirrhosis, hypertension, admitted with seizures and urinary tract infection. S he was started on Zosyn and Zithromax for possible pneumonia and switched over to Omnicef an d Zithromax . Patient is on the [facility] protocol follow-up, withdrawal Events Overnight: Patient [...] Feb 07 2014 3:55AM Referring Provider Line: [phone] ID: 001 X-ray Chest 1 View 02/09/2014 [...] AM This entry has been created using [employer] Speech [employer]ognition software and [employer]. The entry has been reviewed and there may still exist sound alike word errors. onversion Trans action, Provider Unknown - 02/10/2014 4:20 PM PST Therapy Progress Note by Daly Cuba MS CCC-ROAD DESIGN ENGINEER at 02/10/14 6700 Author: Daly Cuba MS CCC-ROAD DESIGN ENGINEER Service: (none) Author Type: Speech and Incubator Machine Operator ologist Filed: 02/10/14 1228 Date of Service: 02/10/14 1620 Status: Signed Prosthetic Technician: Daly Cuba MS CCC-ROAD DESIGN ENGINEER (Speech and Language Pathologist) 02/10/14 1620 Swallowing [...] diet to regular,cut up,cont th in liquids. ROAD DESIGN ENGINEER to f/u x1 to ensure santy. Staff [...] Service: (none) Author Type: Physician Filed: 02/10/14 6565 Date of Service: 02/10/14811 Status: Signed Prosthetic Technician: Micki Redding MD (Physician) [facility] Service: Hospitalist Progress Note Hospital Day: LOS: [...] Feb 07 2014 3:55AM Referring Provider Line: [phone] ID: 001 X-ray Chest 1 View 02/09/2014 [...] AM This entry has been created using [employer] Speech [employer]ognition software and [employer]. The entry has been reviewed and there may still exist sound alike word errors. onversion Trans action, Provider Unknown - 02/10/2014 5:42 AM PST Progress Notes by Yamileth Mcnally RN at 02/10/1442 Author: Yamileth Mcnally RN Service: (none) Author Type: Registered Nurse Filed: 02/10/14 0553 Date of Service: 02/10/14541 Status: Signed Prosthetic Technician: Yamileth Mcnally RN (Registered Nurse) Received pt. Refer to [facility] assessment, medicated at that time, slept until 0200, awoke hun gry, at cheese sandwish, jetanao, 7up, tolerated well. Became emotional crying because her caleb ther did not visit, re-orientated to date and time, no recollection of how she got here, rem embers going to [place] in [place]. Asked pt. If she was trying to [...] Date of Service: 02/09/14 1714 Status: Signed Prosthetic Technician: Manisha Lemus RN (Registered Nurse) Nurse called to report picc line not flushing after picc placed. Picc nurse changed dressin g and pulled out picc to 7cm with triple lumens flushing well and positive blood return. New sterile dressing placed. onver miriam Transaction, Provider Unknown - 02/09/2014 4:45 PM PST Therapy Progress Note by Daly Cuba MS CCC-ROAD DESIGN ENGINEER at 02/09/14 1645 Author: Daly Cuba MS CCC-ROAD DESIGN ENGINEER Service: (none) Author Type: Speech and Incubator Machine Operator ologist Filed: 02/09/141651 Date of Service: 02/09/141644 Status: Signed Prosthetic Technician: Daly Cuba MS CCC-ROAD DESIGN ENGINEER (Speech and Language Pathologist) 02/09/141644 Swallowing Assessment [...] current diet at this time w/aspiration precautions. ROAD DESIGN ENGINEER to cont to fo llow for diet santy and to upgrade as indicated. Staff Notified RN Plan of Care Treatment Plan ST to follow;Dysphagia treatment;Continue with current plan Follow up treatments Diet tolerance monitoring;Patient/Family education;Assessment for upgr tirso Dysphagia Goals Quality Compliance Manager Goals Safe/efficient oral intake Pt will have safe/efficient oral intake Thin liquids;Goal progressing Celso Madsen MD - 02/09/2014 1:05 PM PST Progress Notes by Celso Goldberg MD at 02/09/14 1305 Author: Celso Goldberg MD Service: Hospitalist Author Type: Physician Filed: 02/09/14 1319 Date of Service: 02/09/14 1305 Status: Signed Prosthetic Technician: Celso Goldberg MD (Physician) [facility] Service: Hospitalist Progress Note Pt: Shaila Son AGE/SEX: 43 y.o. female ROOM: [address] [place] [address] : 1970 PCP: Efra Holguin ADMIT DATE: [...] Unable to recall, this information came from [facility] record Ibuprofen Other (See Comments) Pt. Unable to recall, this information came from [facility] record OBJECTIVE: Vitals: Patient Vitals for [...] results found for this basename: PHART, PO2ART, TJT2LWY, A0KSFGRD, BEART, in the last 1 68 hours [...] Date of Service: 02/09/14 1146 Status: Signed Prosthetic Technician: Lonnie Liu RD, NITIN (Registered Dietitian) Nutrition [...] on admit wt of 68.9 kg. Kcal: 5822-7607 kcal/day (30-35 kcal/kg). Increased kcal needs with [...] meal by time of discharge. Recommendations: General [facility] diet with thin liquids as ordered. Can limit sodium if fluid retention an issue. Further diet consistency recommendations per ROAD DESIGN ENGINEER. Sit ter/nursing staff to assist with feeds. [...] 02/09/14347 Date of Service: 02/09/14346 Status: Signed Prosthetic Technician: Yumiko Watson RN (Registered Nurse) Patient has [...] Service: Hospitalist Author Type: Physician Filed: 02/08/14 487 Date of Service: 02/08/141729 Status: Addendum Prosthetic Technician: Celso Goldberg MD (Physician) Related Notes: Original Note by Celso Goldberg MD (Physician) filed at 02/08/14 7910 [facility] Service: Hospitalist Progress Note Pt: Shaila Son AGE/SEX: 43 y.o. female ROOM: [address] [place], [place] [address] : 1970 PCP: Efra Holguin ADMIT DATE: [...] Unable to recall, this information came from [facility] record Ibuprofen Other (See Comments) Pt. Unable to recall, this information came from [facility] record OBJECTIVE: Vitals: Patient Vitals for [...] results found for this basename: PHART, PO2ART, DKE7ESP, P9FNRFTR, BEART, in the last 1 68 hours [...] withd yamila, continue IV Ativan per [facility] protocol and for seizure. Possible hepatic [...] 1126 Date of Service: 02/08/141121 Status: Signed Prosthetic Technician: Elida Gamble RN (Registered Nurse) Patient became [...] 02/08/14812 Date of Service: 02/08/14809 Status: Signed Prosthetic Technician: Elida Gamble RN (Registered Nurse) Discussed case [...] alarm in place with frequent nurse and SENIOR MASTER SCHEDULER presence in patients room. Patient confused and hallucinating. Will continue to monitor onver miriam Transaction, Provider Unknown - 02/08/2014 4:33 AM PST Progress Notes by Alessandro Ward RN at 02/08/14432 Author: Alessandro Ward RN Service: (none) Author Type: Registered Nurse Filed: 02/08/145 Date of Service: 02/08/14432 Status: Signed Prosthetic Technician: Alessandro Ward RN (Registered Nurse) Pt experiencing visual and auditory hallucinations, very agitated, impulsive. CIWA protoco l in place. Pt requires very close supervision onver miriam Transaction, Provider Unknown - 02/08/2014 1:47 AM PDT Progress Notes by Alessandro Ward RN at 02/08/14146 Author: Alessandro Ward RN Service: (none) Author Type: Registered Nurse Filed: 02/08/14 0154 Date of Service: 02/08/14146 Status: Signed Prosthetic Technician: Alessandro Ward RN (Registered Nurse) Pt very [...] Olman Mendoza RN Service: (none) Author Type: Program Medical Director Filed: 02/07/14 1432 Date of Service: 02/07/141427 Status: Signed Prosthetic Technician: Olman Mendoza RN (Program Medical Director) 02/07/141426 Discharge Planning Evaluation Admitting Diagnosis Seizure, [...] PM PDT Therapy Progress Note by CONOR Ramírez-ROAD DESIGN ENGINEER at 02/07/14 1202 Author: CONOR Ramírez-ROAD DESIGN ENGINEER Service: (none) Author Type: Speech and Language Patholo gist Filed: 02/07/14 1202 Date of Service: 02/07/14 120 Status: Signed Prosthetic Technician: CONOR Ramírez-ROAD DESIGN ENGINEER (Speech and Language Pathologist) 02/07/14 1125 Swallowing [...] for upgrade, and swallow safety. Staff Notified MD;RN;SENIOR MASTER SCHEDULER Plan of Care Treatment Plan Dysphagia treatment;ST to follow;Daily 4 to 6 times a week Follow up treatments Swallow strategies;Diet tolerance monitoring;Patient/Family education; Assessment for upgrade Dysphagia Goals Quality Compliance Manager Goals Safe/efficient oral intake Pt will have safe/efficient oral intake Thin liquids;Dysphagia mechanically altered diet;N ew/revised goal;With min cues Short Term Goals Tolerate diet Pt will tolerate diet Dysphagia mechanically altered;With min supervision;New/revised goal Anitha Duran MA CFY-ROAD DESIGN ENGINEER 02/07/2014 Celso Madsen MD - 02/07/2014 8:52 AM PDT Progress Notes by Celso Goldberg MD at 02/07/14851 Author: Celso Goldberg MD Service: Hospitalist Author Type: Physician Filed: 02/07/142023 Date of Service: 02/07/14851 Status: Addendum Prosthetic Technician: Celso Goldberg MD (Physician) Related Notes: Original Note by Celso Goldberg MD (Physician) filed at 02/07/141931 [facility] Service: Hospitalist Progress Note Pt: Shaila Son AGE/SEX: 43 y.o. female ROOM: [address] [place] [address]- : 1970 PCP: Efra Holguin ADMIT DATE: [...] Unable to recall, this information came from [facility] record Ibuprofen Other (See Comments) Pt. Unable to recall, this information came from [facility] record OBJECTIVE: Vitals: Patient Vitals for [...] results found for this basename: PHART, PO2ART, HNW1FST, K6LZYFGC, BEART, in the last 1 68 hours [...] recurrence since admission, continue IV Ativan per [facility] protocol and for seizure. She has mild [...] 02/07/14341 Date of Service: 02/07/14339 Status: Signed Prosthetic Technician: Jelly Agudelo RN (Registered Nurse) This Rn received message from another staff member that a male named Meño called to the un it stating to be the brother of Shaila Son. I am unable to confirm this with Shaila at this time due to her altered mental status. He left a phone number of [phone]. onver miriam Transaction, Provider Unknown - 02/07/2014 1:51 AM PDT Progress Notes by Vandana Mcnally RPH at 02/07/14150 Author: Vandana Mcnally RPH Service: (none) Author Type: Pharmacist Filed: 02/07/14150 Date of Service: 02/07/14150 Status: Signed Prosthetic Technician: Vandana Mcnally RPH (Pharmacist) Clinical Pharmacy Note: Renal Monitoring & Extended Interval Zosyn Dosing Shaila Son 43 y.o. female Height: 170.2 cm Weight: 68.9 kg Serum Creatinine: 0.6 mg/dL (from [place]) Estimated creatinine clearance - Cockcroft-Gault CrCl: 126 [...] H&P by Deonte Morales MD at 02/06/14 894 Author: Deonte Morales MD Service: Hospitalist Author Type: Physician Filed: 02/07/14 0006 Date of Service: 02/06/142340 Status: Signed Prosthetic Technician: Deonte Morales MD (Physician) [facility] Service: Hospitalist Admission History & Physical Date of Admission: 02/06/2014 Requesting Physician: Dr Baptiste, Emergency Department Reason for Admission: Seizure / transfer from [facility] History Obtained From: patient CHIEF COMPLAINT: Seizure [...] the patie nt was subsequently transferred to [facility] for further assessment and treatment. Patient refers positive dysuria and urinary frequency. In the ED at [facility] positive fever with a MAXIMUM TEMPERATURE [...] ESOPHAGOGASTRODUODENOSCOPY; Surgeon: Mitchell Stewart IV, MD; Location: [facility]; Service: Gastroenterology; Laterality: N/A; anesthesia assist if available since may be difficult to sedate Hx of tracheostomy Immunizations: Influenza: Pneumoccocal: Allergies Allergen Reactions Ciprofloxacin Other (See Comments) Pt. Unable to recall, this information came from [facility] record Ibuprofen Other (See Comments) Pt. Unable to recall, this information came from [facility] record (Not in a hospital admission) [...] negative brudzinsky DATA [facility] with no acute ST [...] to the ED as a transfer from [facility] with seizures, fever. Assessment -Seizures. History [...] 02/11/141117 Date of Service: 02/11/141111 Status: Signed Prosthetic Technician: Loni Verma RD (Registered Dietitian) Consult Orders: 1. Inpatient consult to Dietary [[id number]] ordered by Micki Redding MD at 02/11 0572 Nutrition Assessment and Recommendations Assessment: Nutritionally pertinent [...] 02/07/1425 Date of Service: 02/07/1425 Status: Signed Prosthetic Technician: Scott Kilgore RN (Registered Nurse) Urine collected and sent to lab. Scott Kilgore RN 02/07/1425 onver miriam Transaction, Provider Unknown - 02/06/2014 10:46 PM PDT ED Notes by Scott Kilgore RN at 02/06/14 2246 Author: Scott Kilgore RN Service: (none) Author Type: Registered Nurse Filed: 02/06/142245 Date of Service: 02/06/142245 Status: Signed Prosthetic Technician: Scott Kilgore RN (Registered Nurse) Lab at bedside with pt. Scott Kilgore RN 02/06/142245 onver miriam Transaction, Provider Unknown - 02/06/2014 10:40 PM PDT ED Notes by Scott Kilgore RN at 02/06/142239 Author: Scott Kilgore RN Service: (none) Author Type: Registered Nurse Filed: 02/06/142239 Date of Service: 02/06/142239 Status: Signed Prosthetic Technician: Scott Kilgore RN (Registered Nurse) Lab called for TIME BUYER, to draw BC x2. Scott Kilgore RN 02/06/142239 Jakub Munguia DO - 02/06/2014 10:27 PM PDT ED Provider Notes by Jakub Baptiste DO at 02/06/142226 Author: Jakub Baptiste DO Service: Emergency Department Author Type: Physician Filed: 02/07/14 0700 Date of Service: 02/06/142226 Status: Signed Prosthetic Technician: Jakub Baptiste DO (Physician) Procedure Orders: 1. Critical Care [[id number]] ordered by Jakub Baptiste DO at 02/07/14 0659 [facility] Department of Emergency Medicine 7:00 AM History of Present Illness Patient Identification Shaila Son is a 43 y.o. female. Patient information was obtained from patient and past medical records. History/Exam limitations: none. Patient presented to the Emergency Department by: [facility] Chief Complaint Chief Complaint Patient presents with Alcohol Problem Xfer from [facility] for ETOH withdrawl. Delirium Tremens (DTS) [...] ESOPHAGOGASTRODUODENOSCOPY; Surgeon: Mitchell Stewart IV, MD; Location: [facility]; Service: Gastroenterology; Laterality: N/A; anesthesia [...] Unable to recall, this information came from [facility] Hospital record Ibuprofen Other (See Comments) Pt. Unable to recall, this information came from [facility] record History Social History Marital Status: [...] Value Ref Range Date/Time Urine microscopic only [[id number]] (Abnormal) Collected: 02/06/142335 Order Status: Completed Updated: 02/07/14 0048 WBC 11-15 0 - 5 /hpf RBC 16-25 0 - 5 /hpf EPITHELIAL 26-50 /lpf BACTERIA 4+ (A) NONE SEEN Mucus, UA 2+ Blood culture_set 1 [[id number]] Collected: 02/06/142249 Order Status: Sent Updated: 02/07/1411 Specimen Information: Blood / Blood Blood culture, set 2 [[id number]] Collected: 02/06/142252 Order Status: Sent Updated: 02/07/1411 Specimen Information: Blood / Blood POC clinitek 10 [[id number]] (Abnormal) Collected: 02/06/142334 Order Status: Completed Updated: [...] NEGATIVE WBC, UA NEGATIVE NEGATIVE Ammonia level [[id number]] (Abnormal) Collected: 02/06/142252 Order Status: Completed Updated: [...] List Dr. Jakub Baptiste D.O. 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 Critical care was time [...] 02/06/142225 Date of Service: 02/06/142225 Status: Signed Prosthetic Technician: Grant Ratliff RN (Registered Nurse) Dr Baptiste at bedside with pt. Grant Ratliff RN 02/06/142225 onver miriam Transaction, Provider Unknown - 02/06/2014 10:14 PM PDT ED Notes by Scott Kilgore RN at 02/06/142213 Author: Scott Kilgore RN Service: (none) Author Type: Registered Nurse Filed: 02/06/142213 Date of Service: 02/06/142213 Status: Signed Prosthetic Technician: Scott Kilgore RN (Registered Nurse) Bed: 03 Expected date: Expected time: Means of arrival: Comments: onver miriam Transaction, Provider Unknown - 02/06/2014 9:48 PM PDT ED Notes by Jose Carlos Anderson RN at 02/06/142147 Author: Jose Carlos Anderson RN Service: (none) Author Type: Registered Nurse Filed: 02/06/142150 Date of Service: 02/06/142147 Status: Signed Prosthetic Technician: Jose Carlos Anderson RN (Registered Nurse) Pt is a transfer from [facility] for ETOH withdrawal and seizures. Pt has Hx ETOH abuse , seizures, anemia, and cirhossis. Pt has not had ETOH for three days and had seizures at h ome. Pt was given Ativan and zofran at [facility], no seizures at [facility] Pt is u nsteady on feet, [...] 02/10/14307 Date of Service: 02/10/14307 Status: Signed Prosthetic Technician: Yamileth Mcnally RN (Registered Nurse) Problem: Defensive [...] 02/09/141312 Date of Service: 02/09/141309 Status: Signed Prosthetic Technician: Alice Varma RN (Registered Nurse) No seizure [...] 02/08/14737 Date of Service: 02/08/14737 Status: Signed Prosthetic Technician: Elida Gamble RN (Registered Nurse) Problem: RISK [...] EXTERNAL | | | | performed at [facility] | | LAB | | | | [address] [facility];[place], [place] | | | | | | [address] | | | | + + + [...] EXTERNAL | | | | performed at [facility] | | LAB | | | | [address];[place] | | | | | | [address] | | | | + + + + + + | Non- | 2.75 (L)Comment: Testing | 3.70 - 5.10 | EXTERNAL | | | Red Blood | performed at [facility] | M/uL | LAB | | | Cells | [address];[place] | | | | | Counted | [address] | | | | + + + + + + | Hemoglobin | 8.5 (L)Comment: Testing | 11.3 - 15.5 | EXTERNAL | | | | performed at [facility] | g/dL | LAB | | | | [address];[place] | | | | | | [address] | | | | + + + + + + | Hematocrit, | 25.3 (L)Comment: Testing | 34.0 - 46.0 % | EXTERNAL | | | POC | performed at [facility] | | LAB | | | | [address];[place] | | | | | | [address] | | | | + + + + + + | MCV | 92.0Comment: Testing | 80.0 - 100.0 fl | EXTERNAL | | | | performed at [facility] | | LAB | | | | [address];[place] | | | | | | [address] | | | | + + + + + + | MCH | 31.0Comment: Testing | 27.0 - 34.0 pg | EXTERNAL | | | | performed at [facility] | | LAB | | | | [address];[place] | | | | | | [address] | | | | + + + + + + | MCHC | 33.6Comment: Testing | 32.0 - 35.5 | EXTERNAL | | | | performed at [facility] | g/dL | LAB | | | | [address];[place] | | | | | | [address] | | | | + + + + + + | RDW-CV | 58.2 (H)Comment: Testing | 37 - 53 fl | EXTERNAL | | | | performed at [facility] | | LAB | | | | [address];[place] | | | | | | [address] | | | | + + + + + + | Platelet | 101 (L)Comment: Testing | 150 - 400 K/uL | EXTERNAL | | | Count | performed at [facility] | | LAB | | | Plasma | [address];[place] | | | | | | [address] | | | | + + + + + + | MPV | 8.3Comment: Testing | fl | EXTERNAL | | | | performed at [facility];[address] | | LAB | | | | [address];[place] | | | | | | [address] | | | | + + + + + + | Differentia | AUTOMATEDComment: | | EXTERNAL | | | l Type | Testing performed at | | LAB | | | | [facility];[address];[place] [address] | | | | + + + + + + | % Segmented | 50.8Comment: Testing | % | EXTERNAL | | | | performed at [facility];[address] | | LAB | | | Neutrophils | [address];[place] | | | | | | [address] | | | | + + + + + + | % | 16.5Comment: Testing | % | EXTERNAL | | | Lymphocytes | performed at [facility];[address] | | LAB | | | | [address];[place] | | | | | | [address] | | | | + + + + + + | % Monocytes | 25.0Comment: Testing | % | EXTERNAL | | | | performed at [facility];[address] | | LAB | | | | [address];[place] | | | | | | [address] | | | | + + + + + + | % | 4.5Comment: Testing | % | EXTERNAL | | | Eosinophils | performed at [facility];[address] | | LAB | | | | [address];[place] | | | | | | [address] | | | | + + + + + + | % Basophils | 3.2Comment: Testing | % | EXTERNAL | | | | performed at [facility];[address] | | LAB | | | | [address];[place] | | | | | | [address] | | | | + + + + + + | Absolute | 1.9Comment: Testing | 1.9 - 7.4 K/uL | EXTERNAL | | | Segmented | performed at [facility];[address] | | LAB | | | Neutrophils | [address];[place] | | | | | | [address] | | | | + + + + + + | Absolute | 0.6 (L)Comment: Testing | 1.0 - 3.9 K/uL | EXTERNAL | | | Lymphocytes | performed at [facility];[address] | | LAB | | | | [address];[place] | | | | | | [address] | | | | + + + + + + | Absolute | 0.9 (H)Comment: Testing | 0 - 0.8 K/uL | EXTERNAL | | | Monocytes | performed at [facility];[address] | | LAB | | | | [address];[place] | | | | | | [address] | | | | + + + + + + | Absolute | 0.2Comment: Testing | 0 - 0.5 K/uL | EXTERNAL | | | Eosinophils | performed at [facility];[address] | | LAB | | | | [address];[place] | | | | | | [address] | | | | + + + + + + | Absolute | 0.1Comment: Testing | 0 - 0.1 K/uL | EXTERNAL | | | Basophils | performed at [facility];[address] | | LAB | | | | [address];[place] | | | | | | [address] | | | | + + + + + + | RBC | 1+Comment: ANISONORMAL | | EXTERNAL | | | Morphology | PLT MORPHTesting | | LAB | | | | performed at [facility];[address] | | | | | | [address];[place] | | | | | | [address] | | | | | | | [...] EXTERNAL | | | | performed at [facility], [address] | | LAB | | | | [address], | | | | | | [place] [address] | | | | + + + [...] | | | | | [place] [address] | | | | + + + + + + | K | 4.1Comment: Testing | 3.5 - 4.9 | EXTERNAL | | | | performed at [facility], [address] | mmol/L | LAB | | | | [address], | | | | | | [place] [address] | | | | + + + + + + | Cl | 105Comment: Testing | 99 - 109 mmol/L | EXTERNAL | | | | performed at [facility], [address] | | LAB | | | | [address], | | | | | | [place] [address] | | | | + + + + + + | CO2 | 25Comment: Testing | 23 - 32 mmol/L | EXTERNAL | | | | performed at [facility], [address] | | LAB | | | | [address], | | | | | | [place] [address] | | | | + + + + + + | Anion Gap | 6Comment: Testing | 5 - 20 mmol/L | EXTERNAL | | | | performed at [facility], [address] | | LAB | | | | [address], | | | | | | [place] [address] | | | | + + + + + + | Glucose, | 95Comment: Testing | 65 - 99 mg/dL | EXTERNAL | | | Fasting | performed at [facility], [address] | | LAB | | | | [address], | | | | | | [place] [address] | | | | + + + + + + | BUN | 9Comment: Testing | 8 - 25 mg/dL | EXTERNAL | | | | performed at [facility], [address] | | LAB | | | | [address], | | | | | | [place] [address] | | | | + + + + + + | Creatinine | 0.53Comment: Testing | 0.50 - 1.00 | EXTERNAL | | | | performed at [facility], [address] | mg/dL | LAB | | | | [address], | | | | | | [place] [address] | | | | + + + + + + | BUN/Creatin | 17Comment: Testing | | EXTERNAL | | | ine Ratio | performed at [facility], [address] | | LAB | | | | [address], | | | | | | [place] [address] | | | | + + + + + + | Calcium | 8.6Comment: Testing | 8.5 - 10.2 | EXTERNAL | | | | performed at [facility], [address] | mg/dL | LAB | | | | [address], | | | | | | [place] [address] | | | | + + + + + + | Protein, | 5.4 (L)Comment: Testing | 6.3 - 8.2 g/dL | EXTERNAL | | | Total | performed at [facility], [address] | | LAB | | | | [address], | | | | | | [place] [address] | | | | + + + + + + | Albumin | 2.1 (L)Comment: Testing | 3.6 - 5.0 g/dL | EXTERNAL | | | | performed at [facility], [address] | | LAB | | | | [address], | | | | | | [place] [address] | | | | + + + + + + | Globulin | 3.3Comment: Testing | 1.3 - 4.9 g/dL | EXTERNAL | | | | performed at [facility], [address] | | LAB | | | | [address], | | | | | | [place] [address] | | | | + + + + + + | A/G Ratio | 0.6 (L)Comment: Testing | 1.0 - 2.4 | EXTERNAL | | | | performed at [facility], [address] | | LAB | | | | [address], | | | | | | [place], [place] [address] | | | | + + + + + + | Bilirubin | 0.7Comment: Testing | 0.1 - 1.5 mg/dL | EXTERNAL | | | Total | performed at [facility], [address] | | LAB | | | | [address], | | | | | | [place] [address] | | | | + + + + + + | ALP, | 129 (H)Comment: Testing | 35 - 115 U/L | EXTERNAL | | | External | performed at [facility], [address] | | LAB | | | | [address], | | | | | | [place] [address] | | | | + + + + + + | AST | 37Comment: Testing | 10 - 45 U/L | EXTERNAL | | | | performed at [facility], [address] | | LAB | | | | [address], | | | | | | [place] [address] | | | | + + + + + + | ALT | 13Comment: Testing | 10 - 65 U/L | EXTERNAL | | | | performed at [facility], [address] | | LAB | | | | [facility], | | | | | | [place] [address] | | | | + + + [...] | | | | | | at [facility], [address] | | | | | | [facility], | | | | | | [place] [address] | | | | + + + [...] EXTERNAL | | | | performed at [facility];[address] | | LAB | | | | [address];[place], [place] | | | | | | [address] | | | | + + + [...] EXTERNAL | | | | performed at [facility], [address] | | LAB | | | | [address], | | | | | | [place] [address] | | | | + + + + + + | Non- | 2.96 (L)Comment: Testing | 3.70 - 5.10 | EXTERNAL | | | Red Blood | performed at [facility], [address] | [address]/uL | LAB | | | Cells | [address], | | | | | Counted | [place] [address] | | | | + + + + + + | Hemoglobin | 9.3 (L)Comment: Testing | 11.3 - 15.5 | EXTERNAL | | | | performed at [facility], [address] | g/dL | LAB | | | | [address], | | | | | | [place] [address] | | | | + + + + + + | Hematocrit, | 27.6 (L)Comment: Testing | 34.0 - 46.0 % | EXTERNAL | | | POC | performed at [facility], [address] | | LAB | | | | [address], | | | | | | [place] [address] | | | | + + + + + + | MCV | 93.4Comment: Testing | 80.0 - 100.0 fl | EXTERNAL | | | | performed at [facility], [address] | | LAB | | | | [address], | | | | | | [place] [address] | | | | + + + + + + | MCH | 31.3Comment: Testing | 27.0 - 34.0 pg | EXTERNAL | | | | performed at [facility], [address] | | LAB | | | | [address], | | | | | | [place] [address] | | | | + + + + + + | MCHC | 33.5Comment: Testing | 32.0 - 35.5 | EXTERNAL | | | | performed at [facility], [address] | g/dL | LAB | | | | [address], | | | | | | [place] [address] | | | | + + + + + + | RDW-CV | 57.8 (H)Comment: Testing | 37 - 53 fl | EXTERNAL | | | | performed at [facility], [address] | | LAB | | | | [address], | | | | | | [place] [address] | | | | + + + + + + | Platelet | 91 (L)Comment: Testing | 150 - 400 K/uL | EXTERNAL | | | Count | performed at [facility], [address] | | LAB | | | Plasma | [address], | | | | | | [place] [address] | | | | + + + + + + | MPV | 8.5Comment: Testing | fl | EXTERNAL | | | | performed at [facility], [address] | | LAB | | | | [address], | | | | | | [place] [address] | | | | + + + + + + | Differentia | AUTOMATEDComment: | | EXTERNAL | | | l Type | Testing performed at | | LAB | | | | [facility], [address] | | | | | | [place] | | | | | | [address] | | | | + + + + + + | % Segmented | 46.3Comment: Testing | % | EXTERNAL | | | | performed at [facility], [address] | | LAB | | | Neutrophils | [address], | | | | | | [place] [address] | | | | + + + + + + | % | 17.9Comment: Testing | % | EXTERNAL | | | Lymphocytes | performed at [facility], [address] | | LAB | | | | [address], | | | | | | [place], [place] [address] | | | | + + + + + + | % Monocytes | 25.9Comment: Testing | % | EXTERNAL | | | | performed at [facility], [address] | | LAB | | | | [address], | | | | | | [place], [place] [address] | | | | + + + + + + | % | 6.0Comment: Testing | % | EXTERNAL | | | Eosinophils | performed at [facility], [address] | | LAB | | | | [address], | | | | | | [place] [address] | | | | + + + + + + | % Basophils | 3.9Comment: Testing | % | EXTERNAL | | | | performed at [facility], [address] | | LAB | | | | [address], | | | | | | [place] [address] | | | | + + + + + + | Absolute | 1.5 (L)Comment: Testing | 1.9 - 7.4 K/uL | EXTERNAL | | | Segmented | performed at [facility], [address] | | LAB | | | Neutrophils | [address], | | | | | | [place] [address] | | | | + + + + + + | Absolute | 0.6 (L)Comment: Testing | 1.0 - 3.9 K/uL | EXTERNAL | | | Lymphocytes | performed at [facility], [address] | | LAB | | | | [address], | | | | | | [place] [address] | | | | + + + + + + | Absolute | 0.8Comment: Testing | 0 - 0.8 K/uL | EXTERNAL | | | Monocytes | performed at [facility], [address] | | LAB | | | | [address], | | | | | | [place] [address] | | | | + + + + + + | Absolute | 0.2Comment: Testing | 0 - 0.5 K/uL | EXTERNAL | | | Eosinophils | performed at [facility], [address] | | LAB | | | | [address], | | | | | | [place] [address] | | | | + + + + + + | Absolute | 0.1Comment: Testing | 0 - 0.1 K/uL | EXTERNAL | | | Basophils | performed at [facility], [address] | | LAB | | | | [address], | | | | | | [place] [address] | | | | + + + + + + | RBC | 1+Comment: ANISONORMAL | | EXTERNAL | | | Morphology | PLT MORPHTesting | | LAB | | | | performed at [facility], [address] | | | | | | [address], | | | | | | [place] [address] | | | | | | | [...] EXTERNAL | | | | performed at [facility], [address] | | LAB | | | | [address], | | | | | | [place] [address] | | | | + + + [...] [place] | | | | | | [address] | | | | + + + [...] | | | | | [place] [address] | | | | + + + + + + | K | 3.7Comment: Testing | 3.5 - 4.9 | EXTERNAL | | | | performed at [facility], [address] | mmol/L | LAB | | | | [address], | | | | | | [place] [address] | | | | + + + + + + | Cl | 105Comment: Testing | 99 - 109 mmol/L | EXTERNAL | | | | performed at [facility], [address] | | LAB | | | | [address], | | | | | | [place] [address] | | | | + + + + + + | CO2 | 25Comment: Testing | 23 - 32 mmol/L | EXTERNAL | | | | performed at [facility], [address] | | LAB | | | | [address], | | | | | | [place] [address] | | | | + + + + + + | Anion Gap | 7Comment: Testing | 5 - 20 mmol/L | EXTERNAL | | | | performed at [facility], [address] | | LAB | | | | [address], | | | | | | [place] [address] | | | | + + + + + + | Glucose, | 85Comment: Testing | 65 - 99 mg/dL | EXTERNAL | | | Fasting | performed at [facility], [address] | | LAB | | | | [address], | | | | | | [place] [address] | | | | + + + + + + | BUN | 8Comment: Testing | 8 - 25 mg/dL | EXTERNAL | | | | performed at [facility], [address] | | LAB | | | | [address], | | | | | | [place] [address] | | | | + + + + + + | Creatinine | 0.58Comment: Testing | 0.50 - 1.00 | EXTERNAL | | | | performed at [facility], [address] | mg/dL | LAB | | | | [address], | | | | | | [place] [address] | | | | + + + + + + | BUN/Creatin | 14Comment: Testing | | EXTERNAL | | | ine Ratio | performed at [facility], [address] | | LAB | | | | [address], | | | | | | [place] [address] | | | | + + + + + + | Calcium | 9.2Comment: Testing | 8.5 - 10.2 | EXTERNAL | | | | performed at [facility], [address] | mg/dL | LAB | | | | [address], | | | | | | [place] [address] | | | | + + + + + + | Protein, | 5.6 (L)Comment: Testing | 6.3 - 8.2 g/dL | EXTERNAL | | | Total | performed at [facility], [address] | | LAB | | | [address], | | | | | | [place] [address] | | | | + + + + + + | Albumin | 2.2 (L)Comment: Testing | 3.6 - 5.0 g/dL | EXTERNAL | | | | performed at [facility], [address] | | LAB | | | | [address], | | | | | | [place] [address] | | | | + + + + + + | Globulin | 3.4Comment: Testing | 1.3 - 4.9 g/dL | EXTERNAL | | | | performed at [facility], [address] | | LAB | | | | [address], | | | | | | [place] [address] | | | | + + + + + + | A/G Ratio | 0.6 (L)Comment: Testing | 1.0 - 2.4 | EXTERNAL | | | | performed at [facility], [address] | | LAB | | | | [address], | | | | | | [place] [address] | | | | + + + + + + | Bilirubin | 0.8Comment: Testing | 0.1 - 1.5 mg/dL | EXTERNAL | | | Total | performed at [facility], [address] | | LAB | | | | [address], | | | | | | [place], [place] [address] | | | | + + + + + + | ALP, | 119 (H)Comment: Testing | 35 - 115 U/L | EXTERNAL | | | External | performed at [facility], [address] | | LAB | | | | [address], | | | | | | [place], [place] [address] | | | | + + + + + + | AST | 36Comment: Testing | 10 - 45 U/L | EXTERNAL | | | | performed at [facility], [address] | | LAB | | | | [address], | | | | | | [place] [address] | | | | + + + + + + | ALT | 16Comment: Testing | 10 - 65 U/L | EXTERNAL | | | | performed at [facility], [address] | | LAB | | | | [address], | | | | | | [place] [address] | | | | + + + [...] | | | | | | at [facility], [address] | | | | | | [address], | | | | | | [place] [address] | | | | + + + [...] | | | | | performed at [facility] | | | | | | [facility];[place] | | | | | | [address] | | | | + + + [...] EXTERNAL | | | | performed at [facility], [address] | | LAB | | | | [address], | | | | | | [place] [address] | | | | + + + [...] | | | B-12 | performed at [facility], [address] | pg/mL | LAB | | | | [address], | | | | | | [place] [address] | | | | + + + [...] | | | | | [place] [address] | | | | + + + + + + | TIBC | 146 (L)Comment: Testing | 260 - 490 ug/dL | EXTERNAL | | | | performed at [facility], [address] | | LAB | | | | [address], | | | | | | [place] [address] | | | | + + + + + + | Iron | 15Comment: Testing | 15 - 50 % | EXTERNAL | | | Saturation | performed at [facility], [address] | | LAB | | | | [address], | | | | | | [place] [address] | | | | + + + [...] EXTERNAL | | | | performed at [facility], [address] | | LAB | | | | [address], | | | | | | [place] [address] | | | | + + + + + + | Non- | 2.90 (L)Comment: Testing | 3.70 - 5.10 | EXTERNAL | | | Red Blood | performed at [facility], [address] | M/uL | LAB | | | Cells | [address], | | | | | Counted | [place] [address] | | | | + + + + + + | Hemoglobin | 9.2 (L)Comment: Testing | 11.3 - 15.5 | EXTERNAL | | | | performed at [facility], [address] | g/dL | LAB | | | | [address], | | | | | | [place] [address] | | | | + + + + + + | Hematocrit, | 27.3 (L)Comment: Testing | 34.0 - 46.0 % | EXTERNAL | | | POC | performed at [facility], [address] | | LAB | | | | [address], | | | | | | [place] [address] | | | | + + + + + + | MCV | 94.2Comment: Testing | 80.0 - 100.0 fl | EXTERNAL | | | | performed at [facility], [address] | | LAB | | | | [address], | | | | | | [place] [address] | | | | + + + + + + | MCH | 31.6Comment: Testing | 27.0 - 34.0 pg | EXTERNAL | | | | performed at [facility], [address] | | LAB | | | | [address], | | | | | | [place] [address] | | | | + + + + + + | MCHC | 33.5Comment: Testing | 32.0 - 35.5 | EXTERNAL | | | | performed at [facility], [address] | g/dL | LAB | | | | [address], | | | | | | [place] [address] | | | | + + + + + + | RDW-CV | 56.0 (H)Comment: Testing | 37 - 53 fl | EXTERNAL | | | | performed at [facility], [address] | | LAB | | | | [address], | | | | | | [place] [address] | | | | + + + + + + | Platelet | 83 (L)Comment: Testing | 150 - 400 K/uL | EXTERNAL | | | Count | performed at [facility], [address] | | LAB | | | Plasma | [address], | | | | | | [place] [address] | | | | + + + + + + | MPV | 8.7Comment: Testing | fl | EXTERNAL | | | | performed at [facility], [address] | | LAB | | | | [address], | | | | | | [place] [address] | | | | + + + + + + | Differentia | MANUALComment: Testing | | EXTERNAL | | | l Type | performed at [facility], [address] | | LAB | | | | [address], | | | | | | [place] [address] | | | | + + + + + + | Segmented | 63Comment: Testing | % | EXTERNAL | | | Neutrophils | performed at [facility], [address] | | LAB | | | Manual | [address], | | | | | | [place] [address] | | | | + + + + + + | Lymphocytes | 9Comment: Testing | % | EXTERNAL | | | Manual | performed at [facility], [address] | | LAB | | | | [address], | | | | | | [place] [address] | | | | + + + + + + | Monocytes | 21Comment: Testing | % | EXTERNAL | | | Manual | performed at [facility], [address] | | LAB | | | | [address], | | | | | | [place] [address] | | | | + + + + + + | Eosinophils | 7Comment: Testing | % | EXTERNAL | | | Manual | performed at [facility], [address] | | LAB | | | | [address], | | | | | | [place] [address] | | | | + + + + + + | Absolute | 1.9Comment: Testing | 1.9 - 7.4 K/uL | EXTERNAL | | | Neutrophils | performed at [facility], [address] | | LAB | | | | [address], | | | | | | [place] [address] | | | | + + + + + + | Absolute | 0.3 (L)Comment: Testing | 1.0 - 3.9 K/uL | EXTERNAL | | | Lymphocytes | performed at [facility], [address] | | LAB | | | | [address], | | | | | | [place] [address] | | | | + + + + + + | Absolute | 0.7Comment: Testing | 0 - 0.8 K/uL | EXTERNAL | | | Monocytes | performed at [facility], [address] | | LAB | | | | [address], | | | | | | [place] [address] | | | | + + + + + + | Absolute | 0.2Comment: Testing | 0 - 0.5 K/uL | EXTERNAL | | | Eosinophils | performed at [facility], [address] | | LAB | | | | [address], | | | | | | [place] [address] | | | | + + + + + + | RBC | RBC AND PLT MORPHOLOGY | | EXTERNAL | | | Morphology | APPEAR NORMALComment: | | LAB | | | | Testing performed at | | | | | | [facility], [address] | | | | | | [place] | | | | | | [address] | | | | + + + [...] EXTERNAL | | | | performed at [facility], [address] | | LAB | | | | [facility], | | | | | | [place] [address] | | | | + + + [...] [place] | | | | | | [address] | | | | + + + [...] | | | External | performed at [facility], [address] | | LAB | | | | [address] [place], | | | | | | [place] [address] | | | | + + + [...] | | | | | [place] [address] | | | | + + + + + + | K | 3.9Comment: Testing | 3.5 - 4.9 | EXTERNAL | | | | performed at [facility], [address] | mmol/L | LAB | | | | [address], | | | | | | [place] [address] | | | | + + + + + + | Cl | 107Comment: Testing | 99 - 109 mmol/L | EXTERNAL | | | | performed at [facility], [address] | | [place] | | | | [address], | | | | | | [place] [address] | | | | + + + + + + | CO2 | 23Comment: Testing | 23 - 32 mmol/L | EXTERNAL | | | | performed at [facility], [address] | | LAB | | | | [address], | | | | | | [place] [address] | | | | + + + + + + | Anion Gap | 7Comment: Testing | 5 - 20 mmol/L | EXTERNAL | | | | performed at [facility], [address] | | LAB | | | | [address], | | | | | | [place] [address] | | | | + + + + + + | Glucose, | 85Comment: Testing | 65 - 99 mg/dL | EXTERNAL | | | Fasting | performed at [facility], [address] | | LAB | | | | [address], | | | | | | [place] [address] | | | | + + + + + + | BUN | 6 (L)Comment: Testing | 8 - 25 mg/dL | EXTERNAL | | | | performed at [facility], [address] | | LAB | | | | [address], | | | | | | [place] [address] | | | | + + + + + + | Creatinine | 0.52Comment: Testing | 0.50 - 1.00 | EXTERNAL | | | | performed at [facility], [address] | mg/dL | LAB | | | | [address], | | | | | | [place] [address] | | | | + + + + + + | BUN/Creatin | 12Comment: Testing | | EXTERNAL | | | ine Ratio | performed at [facility], [address] | | LAB | | | | [address], | | | | | | [place] [address] | | | | + + + + + + | Calcium | 8.8Comment: Testing | 8.5 - 10.2 | EXTERNAL | | | | performed at [facility], [address] | mg/dL | LAB | | | | [address], | | | | | | [place] [address] | | | | + + + + + + | Protein, | 5.4 (L)Comment: Testing | 6.3 - 8.2 g/dL | EXTERNAL | | | Total | performed at [facility], [address] | | LAB | | | | [address], | | | | | | [place] [address] | | | | + + + + + + | Albumin | 2.1 (L)Comment: Testing | 3.6 - 5.0 g/dL | EXTERNAL | | | | performed at [facility], [address] | | LAB | | | | [address], | | | | | | [place] [address] | | | | + + + + + + | Globulin | 3.3Comment: Testing | 1.3 - 4.9 g/dL | EXTERNAL | | | | performed at [facility], [address] | | LAB | | | | [address], | | | | | | [place] [address] | | | | + + + + + + | A/G Ratio | 0.6 (L)Comment: Testing | 1.0 - 2.4 | EXTERNAL | | | | performed at [facility], [address] | | LAB | | | | [address], | | | | | | [place] [address] | | | | + + + + + + | Bilirubin | 0.7Comment: Testing | 0.1 - 1.5 mg/dL | EXTERNAL | | | Total | performed at [facility], [address] | | LAB | | | | [address], | | | | | | [place] [address] | | | | + + + + + + | ALP, | 109Comment: Testing | 35 - 115 U/L | EXTERNAL | | | External | performed at [facility], [address] | | LAB | | | | [address], | | | | | | [place] [address] | | | | + + + + + + | AST | 40Comment: Testing | 10 - 45 U/L | EXTERNAL | | | | performed at [facility], [address] | | LAB | | | | [address], | | | | | | [place] [address] | | | | + + + + + + | ALT | 15Comment: Testing | 10 - 65 U/L | EXTERNAL | | | | performed at [facility], [address] | | LAB | | | | [address], | | | | | | [place] [address] | | | | + + + [...] | | | | | | [place] [address] | | | | + + + [...] EXTERNAL | | | | performed at [facility] | mmol/L | LAB | | | | [address];[place], [place] | | | | | | [address] | | | | + + + [...] EXTERNAL | | | | performed at [facility];[address] | | LAB | | | | [address];[place] | | | | | | [address] | | | | + + + [...] 17. The mitral valve is normal. 18. Ltip-ft-jtkpxhls | | | mitral regurgitation is present. [...] | | | valve is normal. 18. Ppkt-nr-obwjflrc mitral regurgitation is | | | present. [...] is normal. | | | Mitral Valve: Huuy-fm-bydelcbt mitral regurgitation is present Mitral | | [...] 94.56 ml D-E Excursion: 1.83 cm E-F [place]: | | | 0.07 m/s EPSS: 1.09 [...] A Juan A: 0.65 m/s TV Dec [place]: | | | 4.00 m/s2 TV Dec Time: 240.34 ms TV E Juan A: 0.96 m/s TV | | | E/A Ratio: 1.47 Certified Technician Specialist: DERIK Authenticated by: Jared Vasquez | | [...] | regurgitation.17. The mitral valve is normal.18. Zgld-yl-mhxdotog mitral regurgitation | | is present.19. , [...] valve was not well visualized.26. Trace pulmonic pubryncmytwlk21. There is no | | pericardial effusion.28. [...] Valve: The mitral valve is normal.Mitral Valve: Ksgc-cb-gmoudzrn mitral regurgitation is | | presentMitral Valve: [...] (A-L): 62.26 ml/m2LAAs A2C: | | 27.87 ml2CCYRJ A-L A2C: 118.11 mlLALs A2C: 5.58 cmLAAs A4C: 26.30 an6BDXNV A-L | | A4C: 99.33 mlLALs A4C: [...] 94.56 mlD-E Excursion: | | 1.83 cmE-F [place]: 0.07 m/sEPSS: 1.09 cmHR: 85.87 BPMAV maxP.78 mmHgAV | | meanP.34 mmHgAV Vmax: 1.39 m/Uvaldo Vmean: 0.99 m/Uvaldo VTI: 29.75 cmAVA Vmax: | | 2.68 cm2AVA (VTI): 2.83 xq8RFLX Dopp: 3.83 l/hchj5CWCK Dopp: 6.86 l/minHR: 81.35 | | BPMLVOT [...] m/sTV A Juan A: 0.65 m/sTV Dec [place]: 4.00 m/s2TV Dec Time: | | 240.34 msTV E Juan A: 0.96 m/sTV E/A Ratio: 1.47 Certified Technician Specialist: Earlted by: Jared | | Pedro Gilbert [...] | | The mitral valve is normal.18. Prbq-wa-vrwgdlat mitral regurgitation is present.19. , | | [...] not | | well visualized.26. Trace pulmonic ugasvdtqtftci66. There is no pericardial effusion.28. | | [...] | |D-E Excursion: 1.83 cm | |E-F [place]: 0.07 m/s | |EPSS: 1.09 cm | [...] Juan A: 0.65 m/s | |TV Dec [place]: 4.00 m/s2 | |TV Dec Time: 240.34 ms | |TV E Juan A: 0.96 m/s | |TV E/A Ratio: 1.47 | | | |Certified Technician Specialist: DERIK | |Authenticated by: Jared Gilbert MD [...] The mitral valve is normal. | |18. Kqch-dn-nugqkwko mitral regurgitation is present. | |19. , [...] EXTERNAL | | | | performed at [facility], [address] | | LAB | | | | [address], | | | | | | [place] [address] | | | | + + + + + + | Non- | 2.69 (L)Comment: Testing | 3.70 - 5.10 | EXTERNAL | | | Red Blood | performed at [facility], [address] | M/uL | LAB | | | Cells | [address], | | | | | Counted | [place] [address] | | | | + + + + + + | Hemoglobin | 8.3 (L)Comment: Testing | 11.3 - 15.5 | EXTERNAL | | | | performed at [facility], [address] | g/dL | LAB | | | | [address], | | | | | | [place] [address] | | | | + + + + + + | Hematocrit, | 25.4 (L)Comment: Testing | 34.0 - 46.0 % | EXTERNAL | | | POC | performed at , [address] | | LAB | | | | [address], | | | | | | [place] [address] | | | | + + + + + + | MCV | 94.4Comment: Testing | 80.0 - 100.0 fl | EXTERNAL | | | | performed at [facility], [address] | | LAB | | | | [address], | | | | | | [place] [address] | | | | + + + + + + | MCH | 30.9Comment: Testing | 27.0 - 34.0 pg | EXTERNAL | | | | performed at [facility], [address] | | LAB | | | | [address], | | | | | | [place] [address] | | | | + + + + + + | MCHC | 32.7Comment: Testing | 32.0 - 35.5 | EXTERNAL | | | | performed at [facility], [address] | g/dL | LAB | | | | [address], | | | | | | [place] [address] | | | | + + + + + + | RDW-CV | 57.3 (H)Comment: Testing | 37 - 53 fl | EXTERNAL | | | | performed at [facility], [address] | | LAB | | | | [address], | | | | | | [place] [address] | | | | + + + + + + | Platelet | 72 (L)Comment: Testing | 150 - 400 K/uL | EXTERNAL | | | Count | performed at [facility], [address] | | LAB | | | Plasma | [address], | | | | | | [place] [address] | | | | + + + + + + | MPV | 8.5Comment: Testing | fl | EXTERNAL | | | | performed at [facility], [address] | | LAB | | | | [address], | | | | | | [place] [address] | | | | + + + + + + | Differentia | MANUALComment: Testing | | EXTERNAL | | | l Type | performed at [facility], [address] | | LAB | | | | [address], | | | | | | [place] [address] | | | | + + + + + + | Segmented | 55Comment: Testing | % | EXTERNAL | | | Neutrophils | performed at [facility], [address] | | LAB | | | Manual | [address], | | | | | | [place] [address] | | | | + + + + + + | % Bands | 1Comment: Testing | % | EXTERNAL | | | | performed at [facility], [address] | | LAB | | | | [address], | | | | | | [place] [address] | | | | + + + + + + | Lymphocytes | 22Comment: Testing | % | EXTERNAL | | | Manual | performed at [facility], [address] | | LAB | | | | [address], | | | | | | [place], [place] [address] | | | | + + + + + + | Monocytes | 17Comment: Testing | % | EXTERNAL | | | Manual | performed at [facility], [address] | | LAB | | | | [address], | | | | | | [place] [address] | | | | + + + + + + | Eosinophils | 5Comment: Testing | % | EXTERNAL | | | Manual | performed at [facility], [address] | | LAB | | | | [address], | | | | | | [place] [address] | | | | + + + + + + | Absolute | 2.1Comment: Testing | 1.9 - 7.4 K/uL | EXTERNAL | | | Neutrophils | performed at [facility], [address] | | LAB | | | | [address], | | | | | | [place] [address] | | | | + + + + + + | Bands | 0.0Comment: Testing | 0 - 0.2 K/uL | EXTERNAL | | | Manual | performed at [facility], [address] | | LAB | | | | [address], | | | | | | [place] [address] | | | | + + + + + + | Absolute | 0.9 (L)Comment: Testing | 1.0 - 3.9 K/uL | EXTERNAL | | | Lymphocytes | performed at [facility], [address] | | LAB | | | | [address], | | | | | | [place] [address] | | | | + + + + + + | Absolute | 0.7Comment: Testing | 0 - 0.8 K/uL | EXTERNAL | | | Monocytes | performed at [facility], [address] | | LAB | | | | [address], | | | | | | [place] [address] | | | | + + + + + + | Absolute | 0.2Comment: Testing | 0 - 0.5 K/uL | EXTERNAL | | | Eosinophils | performed at [facility], [address] | | LAB | | | | [address], | | | | | | [place] [address] | | | | + + + + + + | Platelet | DECREASEDComment: | | EXTERNAL | | | Estimate | Testing performed at | | LAB | | | | [facility], [address] [facility] | | | | | | [place] | | | | | | [address] | | | | + + + + + + | RBC | NORMAL RBC MORPHComment: | | EXTERNAL | | | Morphology | NORMAL PLT MORPHTesting | | LAB | | | | performed at [facility], [address] | | | | | [address], | | | | | | [place] [address] | | | | + + + [...] EXTERNAL | | | | performed at [facility], [address] | | LAB | | | | [address], | | | | | | [place] [address] | | | | + + + [...] EXTERNAL | | | | performed at [facility], [address] | | LAB | | | | [address], | | | | | | [place] [address] | | | | + + + [...] | | | | | [place] [address] | | | | + + + + + + | K | 3.2 (L)Comment: Testing | 3.5 - 4.9 | EXTERNAL | | | | performed at [facility], [address] | mmol/L | LAB | | | | [address], | | | | | | [place] [address] | | | | + + + + + + | Cl | 107Comment: Testing | 99 - 109 mmol/L | EXTERNAL | | | | performed at [facility], [address] | | LAB | | | [address], | | | | | | [place] [address] | | | | + + + + + + | CO2 | 22 (L)Comment: Testing | 23 - 32 mmol/L | EXTERNAL | | | | performed at [facility], [address] | | LAB | | | | [address], | | | | | | [place] [address] | | | | + + + + + + | Anion Gap | 10Comment: Testing | 5 - 20 mmol/L | EXTERNAL | | | | performed at [facility], [address] | | LAB | | | | [address], | | | | | | [place] [address] | | | | + + + + + + | Glucose, | 113 (H)Comment: Testing | 65 - 99 mg/dL | EXTERNAL | | | Fasting | performed at [facility], [address] | | LAB | | | | [address], | | | | | | [place] [address] | | | | + + + + + + | BUN | 6 (L)Comment: Testing | 8 - 25 mg/dL | EXTERNAL | | | | performed at [facility], [address] | | LAB | | | | [address], | | | | | | [place] [address] | | | | + + + + + + | Creatinine | 0.59Comment: Testing | 0.50 - 1.00 | EXTERNAL | | | | performed at [facility], [address] | mg/dL | LAB | | | | [address], | | | | | | [place] [address] | | | | + + + + + + | BUN/Creatin | 10Comment: Testing | | EXTERNAL | | | ine Ratio | performed at [facility], [address] | | LAB | | | | [address], | | | | | | [place] [address] | | | | + + + + + + | Calcium | 8.0 (L)Comment: Testing | 8.5 - 10.2 | EXTERNAL | | | | performed at [facility], [address] | mg/dL | LAB | | | | [address], | | | | | | [place] [address] | | | | + + + + + + | Protein, | 5.3 (L)Comment: Testing | 6.3 - 8.2 g/dL | EXTERNAL | | | Total | performed at [facility], [address] | | LAB | | | | [address], | | | | | | [place] [address] | | | | + + + + + + | Albumin | 2.2 (L)Comment: Testing | 3.6 - 5.0 g/dL | EXTERNAL | | | | performed at [facility], [address] | | LAB | | | | [address], | | | | | | [place] [address] | | | | + + + + + + | Globulin | 3.1Comment: Testing | 1.3 - 4.9 g/dL | EXTERNAL | | | | performed at [facility], [address] | | LAB | | | | [address], | | | | | | [place] [address] | | | | + + + + + + | A/G Ratio | 0.7 (L)Comment: Testing | 1.0 - 2.4 | EXTERNAL | | | | performed at [facility], [address] | | LAB | | | | [address], | | | | | | [place] [address] | | | | + + + + + + | Bilirubin | 1.0Comment: Testing | 0.1 - 1.5 mg/dL | EXTERNAL | | | Total | performed at [facility], [address] | | LAB | | | | [address], | | | | | | [place] [address] | | | | + + + + + + | ALP, | 98Comment: Testing | 35 - 115 U/L | EXTERNAL | | | External | performed at [facility], [address] | | LAB | | | | [address], | | | | | | [place] [address] | | | | + + + + + + | AST | 41Comment: Testing | 10 - 45 U/L | EXTERNAL | | | | performed at [facility], [address] | | LAB | | | | [address], | | | | | | [place] [address] | | | | + + + + + + | ALT | 14Comment: Testing | 10 - 65 U/L | EXTERNAL | | | | performed at [facility], [address] | | LAB | | | | [address], | | | | | | [place] [address] | | | | + + + [...] | | | | | | at [facility], [address] | | | | | | [address], | | | | | | [place] [address] | | | | + + + [...] | EXTERNAL LAB | | performed at [facility] [place] [address];[place] [address] 027 NAP1 BI | | | 027 NAP1 BI PRESUMPTIVE NEGATIVE | | | Detection of 027 NAP1 BI strains of C. difficile is presumptive and | | | for epidemiological purposes and not intended to guide or monitor | | | treatment for C. difficile infections. Testing performed at [facility];[address] | | | [facility];[place] [address] | | + + + + +---------+ [...] EXTERNAL | | | | performed at [facility];[address] | mOsm/kg | LAB | | | | [address];[place] | | | | | | [address] | | | | + + + [...] | | | Urine | performed at [facility], [address] | | LAB | | | Random | [address], | | | | | | [place] [address] | | | | + + + [...] EXTERNAL | | | | performed at [facility];[address] | | LAB | | | | [address];[place] | | | | | | [address] | | | | + + + + + + | Non- | 3.04 (L)Comment: Testing | 3.70 - 5.10 | EXTERNAL | | | Red Blood | performed at [facility];[address] | M/uL | LAB | | | Cells | [address];[place] | | | | | Counted | [address] | | | | + + + + + + | Hemoglobin | 9.3 (L)Comment: Testing | 11.3 - 15.5 | EXTERNAL | | | | performed at [facility];[address] | g/dL | LAB | | | | [address];[place] | | | | | | [address] | | | | + + + + + + | Hematocrit, | 27.9 (L)Comment: Testing | 34.0 - 46.0 % | EXTERNAL | | | POC | performed at [facility];[address] | | LAB | | | | [address];[place] | | | | | | [address] | | | | + + + + + + | MCV | 91.8Comment: Testing | 80.0 - 100.0 fl | EXTERNAL | | | | performed at [facility];[address] | | LAB | | | | [address];[place] | | | | | | [address] | | | | + + + + + + | MCH | 30.5Comment: Testing | 27.0 - 34.0 pg | EXTERNAL | | | | performed at [facility];[address] | | LAB | | | | [address];[place] | | | | | | [address] | | | | + + + + + + | MCHC | 33.3Comment: Testing | 32.0 - 35.5 | EXTERNAL | | | | performed at [facility];[address] | g/dL | LAB | | | | [address];[place] | | | | | | [address] | | | | + + + + + + | RDW-CV | 55.1 (H)Comment: Testing | 37 - 53 fl | EXTERNAL | | | | performed at [facility];[address] | | LAB | | | | [address];[place] | | | | | | [address] | | | | + + + + + + | Platelet | 70 (L)Comment: Testing | 150 - 400 K/uL | EXTERNAL | | | Count | performed at [facility];[address] | | LAB | | | Plasma | [address];[place] | | | | | | [address] | | | | + + + + + + | MPV | 8.5Comment: Testing | fl | EXTERNAL | | | | performed at [facility];[address] | | LAB | | | | [address];[place] | | | | | | [address] | | | | + + + + + + | Differentia | MANUALComment: Testing | | EXTERNAL | | | l Type | performed at [facility];[address] | | LAB | | | | [address];[place] | | | | | | [address] | | | | + + + + + + | Segmented | 70Comment: Testing | % | EXTERNAL | | | Neutrophils | performed at [facility];[address] | | LAB | | | Manual | [address];[place] | | | | | | [address] | | | | + + + + + + | % Bands | 5Comment: Testing | % | EXTERNAL | | | | performed at [facility];[address] | | LAB | | | | [address];[place] | | | | | | [address] | | | | + + + + + + | Lymphocytes | 10Comment: Testing | % | EXTERNAL | | | Manual | performed at [facility];[address] | | LAB | | | | [address];[place] | | | | | | [address] | | | | + + + + + + | Monocytes | 11Comment: Testing | % | EXTERNAL | | | Manual | performed at [facility];[address] | | LAB | | | | [address];[place] | | | | | | [address] | | | | + + + + + + | Eosinophils | 4Comment: Testing | % | EXTERNAL | | | Manual | performed at [facility];[address] | | LAB | | | | [address];[place] | | | | | | [address] | | | | + + + + + + | Absolute | 4.2Comment: Testing | 1.9 - 7.4 K/uL | EXTERNAL | | | Neutrophils | performed at [facility];[address] | | LAB | | | | [address];[place] | | | | | | [address] | | | | + + + + + + | Bands | 0.3 (H)Comment: Testing | 0 - 0.2 K/uL | EXTERNAL | | | Manual | performed at [facility];[address] | | LAB | | | | [address];[place] | | | | | | [address] | | | | + + + + + + | Absolute | 0.6 (L)Comment: Testing | 1.0 - 3.9 K/uL | EXTERNAL | | | Lymphocytes | performed at [facility];[address] | | LAB | | | | [address];[place] | | | | | | [address] | | | | + + + + + + | Absolute | 0.7Comment: Testing | 0 - 0.8 K/uL | EXTERNAL | | | Monocytes | performed at [facility];[address] | | LAB | | | | [address];[place] | | | | | | [address] | | | | + + + + + + | Absolute | 0.2Comment: Testing | 0 - 0.5 K/uL | EXTERNAL | | | Eosinophils | performed at [facility];[address] | | LAB | | | | [address];[place] | | | | | | [address] | | | | + + + + + + | Platelet | DECREASEDComment: | | EXTERNAL | | | Estimate | Testing performed at | | LAB | | | | [facility];[address];[place] [address] | | | | + + + + + + | RBC | NORMAL RBC MORPHComment: | | EXTERNAL | | | Morphology | Testing performed at | | LAB | | | | [facility];[address];[place] [address] | | | | + + + [...] EXTERNAL | | | | performed at [facility], [address] | | LAB | | | | [address], | | | | | | [place] [address] | | | | + + + [...] | | | Serum | performed at [facility];[address] | mOsm/kg | LAB | | | | [address];[place], [place] | | | | | | [address] | | | | + + + [...] EXTERNAL | | | | performed at [facility], [address] | | LAB | | | | [address], | | | | | | [place] [address] | | | | + + [...] EXTERNAL | | | | performed at [facility];[address] | | LAB | | | | [address];[place] | | | | | | [address] | | | | + + + [...] | | | | | [place] [address] | | | | + + + + + + | K | 3.4 (L)Comment: Testing | 3.5 - 4.9 | EXTERNAL | | | | performed at [facility], [address] | mmol/L | LAB | | | [address], | | | | | | [place] [address] | | | | + + + + + + | Cl | 105Comment: Testing | 99 - 109 mmol/L | EXTERNAL | | | | performed at [facility], [address] | | LAB | | | | [address], | | | | | | [place] [address] | | | | + + + + + + | CO2 | 22 (L)Comment: Testing | 23 - 32 mmol/L | EXTERNAL | | | | performed at [facility], [address] | | LAB | | | | [address], | | | | | | [place] [address] | | | | + + + + + + | Anion Gap | 10Comment: Testing | 5 - 20 mmol/L | EXTERNAL | | | | performed at [facility], [address] | | LAB | | | | [address], | | | | | | [place] [address] | | | | + + + + + + | Glucose, | 95Comment: Testing | 65 - 99 mg/dL | EXTERNAL | | | Fasting | performed at [facility], [address] | | LAB | | | [address], | | | | | | [place] [address] | | | | + + + + + + | BUN | 5 (L)Comment: Testing | 8 - 25 mg/dL | EXTERNAL | | | | performed at [facility], [address] | | LAB | | | | [address], | | | | | | [place] [address] | | | | + + + + + + | Creatinine | 0.57Comment: Testing | 0.50 - 1.00 | EXTERNAL | | | | performed at [facility], [address] | mg/dL | LAB | | | | [address], | | | | | | [place] [address] | | | | + + + + + + | BUN/Creatin | 9Comment: Testing | | EXTERNAL | | | ine Ratio | performed at [facility], [address] | | LAB | | | | [address], | | | | | | [place] [address] | | | | + + + + + + | Calcium | 8.0 (L)Comment: Testing | 8.5 - 10.2 | EXTERNAL | | | | performed at [facility], [address] | mg/dL | LAB | | | | [address], | | | | | | [place] [address] | | | | + + + + + + | Protein, | 5.6 (L)Comment: Testing | 6.3 - 8.2 g/dL | EXTERNAL | | | Total | performed at [facility], [address] | | LAB | | | | [address], | | | | | | [place] [address] | | | | + + + + + + | Albumin | 2.0 (L)Comment: Testing | 3.6 - 5.0 g/dL | EXTERNAL | | | | performed at [facility], [address] | | LAB | | | | [address], | | | | | | [place] [address] | | | | + + + + + + | Globulin | 3.6Comment: Testing | 1.3 - 4.9 g/dL | EXTERNAL | | | | performed at [facility], [address] | | LAB | | | | [address], | | | | | | [place] [address] | | | | + + + + + + | A/G Ratio | 0.6 (L)Comment: Testing | 1.0 - 2.4 | EXTERNAL | | | | performed at [facility], [address] | | LAB | | | | [address], | | | | | | [place], [place] [address] | | | | + + + + + + | Bilirubin | 1.3Comment: Testing | 0.1 - 1.5 mg/dL | EXTERNAL | | | Total | performed at [facility], [address] | | LAB | | | | [address], | | | | | | [place] [address] | | | | + + + + + + | ALP, | 107Comment: Testing | 35 - 115 U/L | EXTERNAL | | | External | performed at [facility], [address] | | LAB | | | | [address], | | | | | | [place] [address] | | | | + + + + + + | AST | 62 (H)Comment: Testing | 10 - 45 U/L | EXTERNAL | | | | performed at [facility], [address] | | LAB | | | | [address], | | | | | | [place] [address] | | | | + + + + + + | ALT | 19Comment: Testing | 10 - 65 U/L | EXTERNAL | | | | performed at [facility], [address] | | LAB | | | | [address], | | | | | | [place] [address] | | | | + + + [...] W | | | | | | [address], | | | | | | [place] [address] | | | | + + + [...] EXTERNAL | | | | [place] [facility] [place] | | LAB | | | | [address];[place] | | | | | | [address] | | | | + + + [...] EXTERNAL | | | | performed at [facility] [place] | | LAB | | | [address];[place], [place] | | | | | | [address] | | | | + + + [...] | | | | | [place] [address] | | | | + + + + + + | Non- | 3.34 (L)Comment: Testing | 3.70 - 5.10 | EXTERNAL | | | Red Blood | performed at [facility], [address] | M/uL | LAB | | | Cells | [address], | | | | | Counted | [place] [address] | | | | + + + + + + | Hemoglobin | 10.4 (L)Comment: Testing | 11.3 - 15.5 | EXTERNAL | | | | performed at [facility], [address] | g/dL | LAB | | | | [address], | | | | | | [place] [address] | | | | + + + + + + | Hematocrit, | 31.3 (L)Comment: Testing | 34.0 - 46.0 % | EXTERNAL | | | POC | performed at [facility], [address] | | LAB | | | | [address], | | | | | | [place] [address] | | | | + + + + + + | MCV | 93.7Comment: Testing | 80.0 - 100.0 fl | EXTERNAL | | | | performed at [facility], [address] | | LAB | | | | [address], | | | | | | [place] [address] | | | | + + + + + + | MCH | 31.1Comment: Testing | 27.0 - 34.0 pg | EXTERNAL | | | | performed at [facility], [address] | | LAB | | | | [address], | | | | | | [place] [address] | | | | + + + + + + | MCHC | 33.2Comment: Testing | 32.0 - 35.5 | EXTERNAL | | | | performed at [facility], [address] | g/dL | LAB | | | | [address], | | | | | | [place] [address] | | | | + + + + + + | RDW-CV | 53.4 (H)Comment: Testing | 37 - 53 fl | EXTERNAL | | | | performed at [facility], [address] | | LAB | | | | [address], | | | | | | [place] [address] | | | | + + + + + + | Platelet | 67 (L)Comment: Testing | 150 - 400 K/uL | EXTERNAL | | | Count | performed at [facility], [address] | | LAB | | | Plasma | [address], | | | | | | [place] [address] | | | | + + + + + + | MPV | 8.5Comment: Testing | fl | EXTERNAL | | | | performed at [facility], [address] | | LAB | | | | [address], | | | | | | [place] [address] | | | | + + + + + + | Differentia | AUTOMATEDComment: | | EXTERNAL | | | l Type | Testing performed at | | LAB | | | | [facility], [address] | | | | | | [place] | | | | | | [address] | | | | + + + + + + | % Segmented | 70.1Comment: Testing | % | EXTERNAL | | | | performed at [facility], [address] | | LAB | | | Neutrophils | [address], | | | | | | [place] [address] | | | | + + + + + + | % | 9.7Comment: Testing | % | EXTERNAL | | | Lymphocytes | performed at [facility], [address] | | LAB | | | | [address], | | | | | | [place] [address] | | | | + + + + + + | % Monocytes | 16.7Comment: Testing | % | EXTERNAL | | | | performed at [facility], [address] | | LAB | | | | [address], | | | | | | [place] [address] | | | | + + + + + + | % | 2.8Comment: Testing | % | EXTERNAL | | | Eosinophils | performed at [facility], [address] | | LAB | | | | [address], | | | | | | [place] [address] | | | | + + + + + + | % Basophils | 0.7Comment: Testing | % | EXTERNAL | | | | performed at [facility], [address] | | LAB | | | [address], | | | | | | [place] [address] | | | | + + + + + + | Absolute | 3.3Comment: Testing | 1.9 - 7.4 K/uL | EXTERNAL | | | Segmented | performed at [facility], [address] | | LAB | | | Neutrophils | [address], | | | | | | [place] [address] | | | | + + + + + + | Absolute | 0.5 (L)Comment: Testing | 1.0 - 3.9 K/uL | EXTERNAL | | | Lymphocytes | performed at [facility], [address] | | LAB | | | | [address], | | | | | | [place] [address] | | | | + + + + + + | Absolute | 0.8Comment: Testing | 0 - 0.8 K/uL | EXTERNAL | | | Monocytes | performed at [facility], [address] | | LAB | | | | [address], | | | | | | [place] [address] | | | | + + + + + + | Absolute | 0.1Comment: Testing | 0 - 0.5 K/uL | EXTERNAL | | | Eosinophils | performed at [facility], [address] | | LAB | | | | [address], | | | | | | [place] [address] | | | | + + + + + + | Absolute | 0.0Comment: Testing | 0 - 0.1 K/uL | EXTERNAL | | | Basophils | performed at [facility], [address] | | LAB | | | | [address], | | | | | | [place] [address] | | | | + + + [...] | | | | | [place] [address] | | | | + + + [...] EXTERNAL | | | | performed at [facility], [address] | | LAB | | | | [address], | | | | | | [place] [address] | | | | + + + [...] EXTERNAL | | | | performed at [facility];[address] | | LAB | | | | [address];[place] | | | | | | [address] | | | | + + + [...] | | | | | [place] [address] | | | | + + + + + + | K | 3.9Comment: Testing | 3.5 - 4.9 | EXTERNAL | | | | performed at [facility], [address] | mmol/L | LAB | | | | [address], | | | | | | [place] [address] | | | | + + + + + + | Cl | 103Comment: Testing | 99 - 109 mmol/L | EXTERNAL | | | | performed at [facility], [address] | | LAB | | | | [address], | | | | | | [place] [address] | | | | + + + + + + | CO2 | 22 (L)Comment: Testing | 23 - 32 mmol/L | EXTERNAL | | | | performed at [facility], [address] | | LAB | | | | [address], | | | | | | [place] [address] | | | | + + + + + + | Anion Gap | 8Comment: Testing | 5 - 20 mmol/L | EXTERNAL | | | | performed at [facility], [address] | | LAB | | | | [address], | | | | | | [place] [address] | | | | + + + + + + | Glucose, | 98Comment: Testing | 65 - 99 mg/dL | EXTERNAL | | | Fasting | performed at [facility], [address] | | LAB | | | | [address], | | | | | | [place], [place] [address] | | | | + + + + + + | BUN | 5 (L)Comment: Testing | 8 - 25 mg/dL | EXTERNAL | | | | performed at [facility], [address] | | LAB | | | | [address], | | | | | | [place] [address] | | | | + + + + + + | Creatinine | 0.51Comment: Testing | 0.50 - 1.00 | EXTERNAL | | | | performed at [facility], [address] | mg/dL | LAB | | | | [address], | | | | | | [place] [address] | | | | + + + + + + | BUN/Creatin | 10Comment: Testing | | EXTERNAL | | | ine Ratio | performed at [facility], [address] | | LAB | | | | [facility], | | | | | | [place] [address] | | | | + + + + + + | Calcium | 7.9 (L)Comment: Testing | 8.5 - 10.2 | EXTERNAL | | | | performed at [facility], [address] | mg/dL | LAB | | | | [address], | | | | | | [place] [address] | | | | + + + [...] | | | | | [place] [address] | | | | + + + [...] EXTERNAL | | | | performed at [facility];[address] | mmol/L | LAB | | | | [address];[place] | | | | | | [address] | | | | + + + [...] EXTERNAL | | | | performed at [facility] | | LAB | | | | [address] [facility];[place], [place] | | | | | | [address] | | | | + + + [...] EXTERNAL | | | | performed at [facility];[address] | | LAB | | | | [address];[place] | | | | | | [address] | | | | + + + + + + | Non- | 2.89 (L)Comment: Testing | 3.70 - 5.10 | EXTERNAL | | | Red Blood | performed at [facility];[address] | M/uL | LAB | | | Cells | [address];[place] | | | | | Counted | [address] | | | | + + + + + + | Hemoglobin | 8.9 (L)Comment: Testing | 11.3 - 15.5 | EXTERNAL | | | | performed at [facility];[address] | g/dL | LAB | | | | [address];[place] | | | | | | [address] | | | | + + + + + + | Hematocrit, | 26.3 (L)Comment: Testing | 34.0 - 46.0 % | EXTERNAL | | | POC | performed at [facility];[address] | | LAB | | | | [address];[place] | | | | | | [address] | | | | + + + + + + | MCV | 90.9Comment: Testing | 80.0 - 100.0 fl | EXTERNAL | | | | performed at [facility];[address] | | LAB | | | | [address];[place] | | | | | | [address] | | | | + + + + + + | MCH | 30.7Comment: Testing | 27.0 - 34.0 pg | EXTERNAL | | | | performed at [facility];[address] | | LAB | | | | [address];[place] | | | | | | [address] | | | | + + + + + + | MCHC | 33.8Comment: Testing | 32.0 - 35.5 | EXTERNAL | | | | performed at [facility];[address] | g/dL | LAB | | | | [address];[place] | | | | | | [address] | | | | + + + + + + | RDW-CV | 52.5Comment: Testing | 37 - 53 fl | EXTERNAL | | | | performed at [facility];[address] | | LAB | | | | [address];[place] | | | | | | [address] | | | | + + + + + + | Platelet | 49 (LL)Comment: PLT | 150 - 400 K/uL | EXTERNAL | | | Count | PHONED TO FREDDY Chen | | LAB | | | Plasma | AT 0805 BY [facility] BACK | | | | | | RESULTS VERIFIEDTesting | | | | | | performed at [facility];[address] | | | | | | [address];[place] | | | | | | [address] | | | | + + + + + + | MPV | 8.3Comment: Testing | fl | EXTERNAL | | | | performed at [facility];[address] | | LAB | | | | [address];[place] | | | | | | [address] | | | | + + + + + + | Differentia | AUTOMATEDComment: | | EXTERNAL | | | l Type | Testing performed at | | LAB | | | | [facility];[address] | | | | [address];[place] [address] | | | | + + + + + + | % Segmented | 59.0Comment: Testing | % | EXTERNAL | | | | performed at [facility];[address] | | LAB | | | Neutrophils | [address];[place] | | | | | | [address] | | | | + + + + + + | % | 16.7Comment: Testing | % | EXTERNAL | | | Lymphocytes | performed at [facility];[address] | | LAB | | | | [address];[place] | | | | | | [address] | | | | + + + + + + | % Monocytes | 21.8Comment: Testing | % | EXTERNAL | | | | performed at [facility];[address] | | LAB | | | | [address];[place] | | | | | | [address] | | | | + + + + + + | % | 1.4Comment: Testing | % | EXTERNAL | | | Eosinophils | performed at [facility];[address] | | LAB | | | | [address];[place] | | | | | | [address] | | | | + + + + + + | % Basophils | 1.1Comment: Testing | % | EXTERNAL | | | | performed at [facility];[address] | | LAB | | | | [address];[place] | | | | | | [address] | | | | + + + + + + | Absolute | 2.2Comment: Testing | 1.9 - 7.4 K/uL | EXTERNAL | | | Segmented | performed at [facility];[address] | | LAB | | | Neutrophils | [address];[place] | | | | | | [address] | | | | + + + + + + | Absolute | 0.6 (L)Comment: Testing | 1.0 - 3.9 K/uL | EXTERNAL | | | Lymphocytes | performed at [facility];[address] | | LAB | | | | [address];[place] | | | | | | [address] | | | | + + + + + + | Absolute | 0.8Comment: Testing | 0 - 0.8 K/uL | EXTERNAL | | | Monocytes | performed at [facility];[address] | | LAB | | | | [address];[place] | | | | | | [address] | | | | + + + + + + | Absolute | 0.1Comment: Testing | 0 - 0.5 K/uL | EXTERNAL | | | Eosinophils | performed at [facility];[address] | | LAB | | | | [address];[place] | | | | | | [address] | | | | + + + + + + | Absolute | 0.0Comment: Testing | 0 - 0.1 K/uL | EXTERNAL | | | Basophils | performed at [facility];[address] | | LAB | | | | [address];[place], [place] | | | | | | [address] | | | | + + + [...] EXTERNAL | | | | performed at [facility];[address] | uIU/mL | LAB | | | | [address];[place], [place] | | | | | | [address] | | | | + + + [...] EXTERNAL | | | | performed at [facility];[address] | | LAB | | | | [address];[place], [place] | | | | | | [address] | | | | + + + [...] EXTERNAL | | | | performed at [facility];[address] | | LAB | | | | [address] [facility];[place] | | | | | | [address] | | | | + + + [...] LAB | | | | performed at [facility];[address] | | | | | | [address];[place] | | | | | | [address] | | | | + + + [...] + + | Hemoglobin | 4.6Comment: The [place] | 4.0 - 6.0 % | EXTERNAL [...] | | | | | performed at [facility], [address] | | | | | | [address], | | | | | | [place] [address] | | | | + + + [...] | | | | | performed at [facility], [address] | | | | | | [facility], | | | | | | [place] [address] | | | | + + + [...] | | | Direct | performed at [facility];[address] | | LAB | | | | [address];[place], [place] | | | | | | [address] | | | | + + + [...] EXTERNAL | | | | performed at [facility];[address] | mmol/L | LAB | | | | [address];[place] | | | | | | [address] | | | | + + + + + + | K | 3.2 (L)Comment: Testing | 3.5 - 4.9 | EXTERNAL | | | | performed at [facility];[address] | mmol/L | LAB | | | | [address];[place] | | | | | | [address] | | | | + + + + + + | Cl | 106Comment: Testing | 99 - 109 mmol/L | EXTERNAL | | | | performed at [facility];[address] | | LAB | | | | [address];[place] | | | | | | [address] | | | | + + + + + + | CO2 | 25Comment: Testing | 23 - 32 mmol/L | EXTERNAL | | | | performed at [facility];[address] | | LAB | | | | [address];[place] | | | | | | [address] | | | | + + + + + + | Anion Gap | 10Comment: Testing | 5 - 20 mmol/L | EXTERNAL | | | | performed at [facility];[address] | | LAB | | | | [address];[place] | | | | | | [address] | | | | + + + + + + | Glucose, | 77Comment: Testing | 65 - 99 mg/dL | EXTERNAL | | | Fasting | performed at [facility];[address] | | LAB | | | | [address];[place] | | | | | | [address] | | | | + + + + + + | BUN | 5 (L)Comment: Testing | 8 - 25 mg/dL | EXTERNAL | | | | performed at [facility];[address] | | LAB | | | | [address];[place] | | | | | | [address] | | | | + + + + + + | Creatinine | 0.60Comment: Testing | 0.50 - 1.00 | EXTERNAL | | | | performed at [facility];[address] | mg/dL | LAB | | | | [address];[place] | | | | | | [address] | | | | + + + + + + | BUN/Creatin | 8Comment: Testing | | EXTERNAL | | | ine Ratio | performed at [facility];[address] | | LAB | | | | [address];[place] | | | | | | [address] | | | | + + + + + + | Calcium | 7.2 (L)Comment: Testing | 8.5 - 10.2 | EXTERNAL | | | | performed at [facility];[address] | mg/dL | LAB | | | | [address];[place] | | | | | | [address] | | | | + + + + + + | Protein, | 5.9 (L)Comment: Testing | 6.3 - 8.2 g/dL | EXTERNAL | | | Total | performed at [facility];[address] | | LAB | | | | [address];[place] | | | | | | [address] | | | | + + + + + + | Albumin | 1.8 (L)Comment: Testing | 3.6 - 5.0 g/dL | EXTERNAL | | | | performed at [facility];[address] | | LAB | | | | [address];[place] | | | | | | [address] | | | | + + + + + + | Globulin | 4.1Comment: Testing | 1.3 - 4.9 g/dL | EXTERNAL | | | | performed at [facility];[address] | | LAB | | | | [address];[place] | | | | | | [address] | | | | + + + + + + | A/G Ratio | 0.5 (L)Comment: Testing | 1.0 - 2.4 | EXTERNAL | | | | performed at [facility];[address] | | LAB | | | | [address];[place] | | | | | | [address] | | | | + + + + + + | Bilirubin | 1.2Comment: Testing | 0.1 - 1.5 mg/dL | EXTERNAL | | | Total | performed at [facility];[address] | | LAB | | | | [address];[place] | | | | | | [address] | | | | + + + + + + | ALP, | 135 (H)Comment: Testing | 35 - 115 U/L | EXTERNAL | | | External | performed at [facility];[address] | | LAB | | | | [address];[place] | | | | | | [address] | | | | + + + + + + | AST | 84 (H)Comment: Testing | 10 - 45 U/L | EXTERNAL | | | | performed at [facility];[address] | | LAB | | | | [address];[place] | | | | | | [address] | | | | + + + + + + | ALT | 21Comment: Testing | 10 - 65 U/L | EXTERNAL | | | | performed at [facility];[address] | | LAB | | | | [address];[place] | | | | | | [address] | | | | + + + [...] | | | | | | at [facility];[address] [place] [address] | | | | | | [facility];[place] [address] | | | | + + + [...] 3:55AM Referring | | | Provider Line: [phone] ID: [id number] | | + + + [...] noted in the bilateral | | | central communications specialist spaces. | | + + + + [...] coils are again noted in the bilateral central communications specialist spaces. IMPRESSION: No acute | | intracranial process. RADIA Electronically signed by Rosalinda Comer MD on Feb 07 | | 2013 3:55AM Referring Provider Line: [phone] ID: [id number] | | | |Extraaxial Spaces: [...] coils are again noted in the bilateral central communications specialist spaces. | | | |IMPRESSION: | | | | | |No acute intracranial process. | | | |RADIA | | | | Electronically signed by Rosalinda Comer MD on Feb 07 2014 3:55AM Referring Provider Line: [phone] ID: [id number] | + + Urinalysis, Microscopic Only (02/06/2014 11:36 PM PDT) + + + + + + | Component | Value | Ref Range | Performed | Pathologist | | | | | At | Signature | + + + + + + | WBC, UA | 11-15Comment: Testing | 0 - 5 /hpf | EXTERNAL | | | | performed at [facility];[address] | | LAB | | | | [address];[place] | | | | | | [address] | | | | + + + + + + | RBC, UA | 16-25Comment: Testing | 0 - 5 /hpf | EXTERNAL | | | | performed at [facility];[address] | | LAB | | | | [address];[place] | | | | | | [address] | | | | + + + + + + | Epithelial | 26-50Comment: Testing | /lpf | EXTERNAL | | | Cells | performed at [facility];[address] | | LAB | | | | [address];[place] | | | | | | [address] | | | | + + + + + + | Bacteria, | 4+ (A)Comment: Testing | | EXTERNAL | | | UA | performed at [facility];[address] | | LAB | | | | [address];[place] | | | | | | [address] | | | | + + + + + + | Mucus, | 2+Comment: Testing | | EXTERNAL | | | Urine | performed at [facility];[address] | | LAB | | | | [address];[place], [place] | | | | | | [address] | | | | + + + [...] EXTERNAL | | | | performed at [facility];[address] | | LAB | | | | [address];[place] | | | | | | [address] | | | | + + + + + + | Clarity, | CLOUDYComment: Testing | | EXTERNAL | | | Urine | performed at [facility];[address] | | LAB | | | | [address];[place] | | | | | | [address] | | | | + + + + + + | Specific | 1.025Comment: Testing | 1.001 - 1.035 | EXTERNAL | | | [place], | performed at [facility];[address] | | LAB | | | Urine | [address];[place] | | | | | | [address] | | | | + + + + + + | Leukocyte | NEGATIVEComment: Testing | | EXTERNAL | | | Esterase, | performed at [facility];[address] | | LAB | | | Urine | [address];[place] | | | | | | [address] | | | | + + + + + + | Nitrite, | NEGATIVEComment: Testing | | EXTERNAL | | | Urine | performed at [facility];[address] | | LAB | | | | [address];[place] | | | | | | [address] | | | | + + + + + + | Urobilinoge | 0.2Comment: Testing | mg/dL | EXTERNAL | | | n, Urine | performed at [facility];[address] | | LAB | | | | [address];[place] | | | | | | [address] | | | | + + + + + + | Protein, | 100 (A)Comment: Testing | mg/dL | EXTERNAL | | | Urine | performed at [facility];[address] | | LAB | | | | [address];[place] | | | | | | [address] | | | | + + + + + + | pH, Urine | 7.0Comment: Testing | 4.6 - 8.0 | EXTERNAL | | | | performed at [facility];[address] | | LAB | | | | [address];[place] | | | | | | [address] | | | | + + + + + + | Blood, | LARGE (A)Comment: | | EXTERNAL | | | Urine | Testing performed at | | LAB | | | | [facility];[address];[place] [address] | | | | + + + + + + | Ketones | TRACE (A)Comment: | mg/dL | EXTERNAL | | | | Testing performed at | | LAB | | | | [facility];[address];[place] [address] | | | | + + + + + + | Bilirubin, | SMALL (A)Comment: | | EXTERNAL | | | Urine | Testing performed at | | LAB | | | | [facility];[address];[place] [address] | | | | + + + + + + | Glucose, | NEGATIVEComment: Testing | mg/dL | EXTERNAL | | | Urine | performed at [facility];[address] | | LAB | | | | [address];[place] | | | | | | [address] | | | | + + + [...] | Testing performed | | | at [facility], [address] [place] [address] | | | Suscepibility for - ESCHERICHIA [...] EXTERNAL | | | | performed at [facility];[address] | | LAB | | | | [address];[place], [place] | | | | | | [address] | | | | + + + [...] RAC | | | Testing performed at [facility];[address] | | | Mich[address];[place] [address] CULTURE | | | NO GROWTH | | | Testing performed at [facility], [address] [facility] [address], [place], [place] | | | [address] | | + + + + +---------+ [...] LAC | | | Testing performed at [facility];[address] | | | [facility];[place] [address] CULTURE | | | NO GROWTH | | | Testing performed at [facility], [address] [facility], [place], [place] | | | [address] | | + + + + +---------+ [...]
--- OUTSIDE RECORDS SUMMARY | ~2020-01-12 | XMS | Encounter Summary ---
Demographics + + + | Address | [address] | | | [place] [address] | + + + | Home Phone [...] + | Joanne Pham | ECON | [id number] | | | | | [place] | | | | | [address] | | + + + + + | Viktor Son | EDDIE | Unknown | | + + + + + | Edd Gill | ECON | Unknown | | + + + + + | Conner Barber | ECON | Unknown | | + + + + + Care Team Providers + +------+ + | Care Benefit Specialist Name | Role | Phone | [...] | | [place] | [place] [address] | | | | | [address] | [phone] | | | | | [phone] | | | +--------+ + + + [...] 11:26 AM PDTOutside record: Cytology report from [employer], dos: 7-26-17. Sent to scan. documented in this encounter Plan of Treatment Not on filedocumented as of this encounter Visit Diagnoses Not on filedocumented in this encounter"
--- OUTSIDE RECORDS SUMMARY | ~2020-01-12 | XMS | Encounter Summary ---
Demographics + + + | Address | [address] | | | [place] [address] | + + + | Home Phone [...] | Author | [facility] | | | and [place] | + + + | Organization | [facility] | | | and [place] | + + + | Address | Unknown | + + + | Phone | Unavailable | + + + Support + + + + + | Name | Relationship | Address | Phone | + + + + + | Joanne Pham | ECON | [address] | | | | | [place] | | | | | [address] | | + + + + + | Viktor Son | EDDIE | Unknown | | + + + + + | Edd Gill | ECON | Unknown | | + + + + + | Conner Barber | ECON | Unknown | | + + + + + Care Team Providers + +------+ + | Care Life Sciences Teacher Name | Role | Phone | [...] | | SHONDA ALVAREZ | [place] [address] | | | | | [place] [address] | | | | | | [phone] | | | +--------+ + + + [...] for comparison only - no result from [facility]. | [facility] | + + + + +---------+ + + | Performing | Address | City/State/Zipcode | Phone Number | | Organization | | | | + +---------+ + + | [facility] | | | | + +---------+ + + documented in this encounter Visit Diagnoses Not on filedocumented in this encounter"
--- OUTSIDE RECORDS SUMMARY | ~2020-01-12 | XMS | Encounter Summary ---
Demographics + + + | Address | [address] | | | [place] [address] | + + + | Home Phone [...] + | Joanne Pham | ECON | [address] | | | | | [place] | | | | | [address] | | + + + + + | Viktor Son | EDDIE | Unknown | | + + + + + | Edd Gill | ECON | Unknown | | + + + + + | Conner Barber | ECON | Unknown | | + + + + + Care Team Providers + +------+ + | Care Research Physicist Name | Role | Phone | + +------+ + | Trixie Rose PA-C | PCP | | + +------+ + Encounter Details +--------+ + + + + | Date | Type | Department | Care Team | Description | +--------+ + + + + | 08/25/ | Hospital | [facility] | Paulina Wu MD | Hematemesis with | | 2019 - | Encounter | [facility] | [address] | nausea; Alcohol | | | | CARE FLO[address] | [place] [address] | withdrawal syndrome | | 09/05/ | | [address] | [phone] | with complication | | 2019 | | [place], [place] | | (HCC); Ascites due | | | | [phone] | | to alcoholic | | | | [phone] | | cirrhosis (HCC); | | | [...] MD Service: Hospitalist Author Type: Physician Filed: 10/08/1863 Date of Service: 09/04/18 134 Status: Addendum Institution Director: Ha Aguayo MD (Physician) Related Notes: Original Note by Ha Aguayo MD (Physician) filed at 09/04/18 3766 [facility] Service: Hospitalist Discharge Summary Date of Admission: [...] and other chronic comorbidities who presents to [facility] from [facility] for hematemesis admitted for upper GI [...] anemia. The patient is to live in [place] with significant other, ambulatory GI refe rral to be provided. The patient is to follow-up with her primary care physician within 1 [place] after discharge. The patient was able to reiterate what was discussed verbally demonstr ating understanding. All questions answered. Past Medical History Diagnosis Date Anemia Hemorrhage of gastrointestinal tract, unspecified Hypertension Liver disease Seizures (HCC) Past Surgical History Procedure Laterality Date BACK SURGERY ESOPHAGOGASTRODUODENOSCOPY N/A 07/30/2011 Procedure: ESOPHAGOGASTRODUODENOSCOPY; Surgeon: Mitchell Stewart IV, MD; Location: [facility]; Service: Gastroenterology; Laterality: N/A; anesthesia assist if available since may be difficult to sedate ESOPHAGOGASTRODUODENOSCOPY N/A 08/26/2018 Procedure: ESOPHAGOGASTRODUODENOSCOPY; Surgeon: Mitchell Stewart IV, MD; Location: [facility]; Service: Gastroenterology; Laterality: N/A; Hx of tracheostomy Allergies Allergen Reactions Aspirin Anaphylaxis Pt unable to recall, this information came from [facility] record Lactose Anaphylaxis Pt unable to recall, this information came from [facility] record Ciprofloxacin Other (See Comments) Pt. Unable to recall, this information came from [facility] record Ibuprofen Other (See Comments) Pt. Unable to recall, this information came from [facility] record Prescriptions Prior to Admission [...] Visits Requested: 1 Follow up: LAURENCE Membreno [address] [facility] [address] [place] [address] Schedule an appointment as soon as possible [...] | | | | | | | VITAMINS/[facility] FACILITIES) TABS | | | | | | [...] Date of Service: 09/05/18 100 Status: Addendum Institution Director: Jodie Sebastian RN (Registered Nurse) Related Notes: Original Note by Jodie Sebastian RN (Registered Nurse) filed a t 09/05/18 100 CM received a call from [facility] at [facility] stating that the pt's insurance auth has been approved and they are able to accept pt today. CM updated pt's significant other [place] on pt's discharge time per pt request. Disposition: [facility] Transportation: facility to transport @ 1100 All orders, signed AVS, and prescriptions have been faxed All DC paperwork completed Patient and family in agreement with discharge plan Medicare important message (Given or N/A): N/A Jodie Sebastian RN onver miriam Transaction, Provider Unknown - 09/05/2018 5:04 AM PDT Nurse Progress Note by Alba Boss RN at 09/05/18 0501 Author: Alba Boss RN Service: (none) Author Type: Registered Nurse Filed: 09/05/18 7263 Date of Service: 09/05/18 050 Status: Signed Institution Director: Alba Boss RN (Registered Nurse) Pt A&O x4, forgetful at times. Lactulose held as pt had multiple BMs on day shift and was h aving diarrhea at start of or scrub tech. No acute changes overnight, patent midline. Unable [...] Date of Service: 09/04/18 143 Status: Signed Institution Director: Jodie Sebastian RN (Registered Nurse) CM discussed discharge planning with pt. Pt is stating that she would prefer to go to a SNF for rehab opposed to Home Health. CM contacted [facility] who states she [facility] insurance auth and follow up with CM. onver miriam Transaction, Provider Unknown - 09/04/2018 6:31 AM PDT Nurse Progress Note by Chadwick Murdock RN at 09/04/18630 Author: Chadwick Murdock RN Service: (none) Author Type: Registered Nurse Filed: 09/04/18 0633 Date of Service: 09/04/18630 Status: Signed Institution Director: Chadwick Murdock RN (Registered Nurse) Pt has been oriented x3, calling appropriately, and no c/o pain. Urine output has been arou nd 400mls. Vital signs have remained stable. Chart has been reviewed. Chadwick Murdock RN . onver miriam Transaction, Provider Unknown - 09/03/2018 7:27 PM PDT Nurse Progress Note by SN Odilia at 09/03/181926 Author: SN Odilia Service: (none) Author Type: Slat Pickler Filed: 09/03/181937 Date of Service: 09/03/181926 Status: Signed Institution Director: SN Odilia (Slat Pickler) Pt abdomen remains distended and soft post [...] Hakeem Gramajo PTA Service: (none) Author Type: Aviation Metalsmith Filed: 09/03/18 1418 Date of Service: 09/03/18 1336 Status: Signed Institution Director: Hakeem Gramajo PTA (Aviation Metalsmith) PHYSICAL THERAPY TREATMENT NOTE PT Received On: 09/03/18 Reason for Treatment: Deconditioning, LE fracture (GIB, CIWA, recent R tib/fib fx) Requires PT Follow Up: Yes Recommendations: Home Assist, PT Plan Treatment/Interventions: Continue per Primary PT POC Progress: Progressing toward goals Summary Comments: Pt supine in bed when POST CLOSING SPECIALIST arrives, agreeable to therapy. Therapy focused on [...] Sanz RN at 09/03/18 1241 Author: Rosalinda aSnz RN Service: (none) Author Type: Registered Nurse Filed: 09/03/18 1242 Date of Service: 09/03/18 1241 Status: Signed Institution Director: Rosalinda Sanz RN (Registered Nurse) Pt had paracentesis with no difficulty. Tolerated procedure well. 3L removed. Rosalinda katz RN onver miriam Transaction, Provider Unknown - 09/03/2018 10:06 AM PDT Case Management by Jodie Sebastian RN at 09/03/18 1006 Author: Jodie Sebastian RN Service: (none) Author Type: Registered Nurse Filed: 09/04/18 1212 Date of Service: 09/03/18 1006 Status: Addendum Institution Director: Jodie Sebastian RN (Registered Nurse) Related Notes: [...] she is staying with Conner in his fpc facility but she is look ing for [...] Date of Service: 09/03/18 0935 Status: Signed Institution Director: Ha Aguayo MD (Physician) [facility] Service: Hospitalist Progress Note Hospital Day: LOS: 10 days Post-Op Day: 4 Days Post-Op Procedure: Procedure(s) (LRB): ESOPHAGOGASTRODUODENOSCOPY (N/A) Briefly, 48-year-old female with extensive past medical history most significant for alcoho l abuse, decompensated alcoholic cirrhosis (ascites and esophageal varices status post sachin ng 2010), hypertension and other chronic comorbidities who presents to [facility] from [facility] ER for hematemesis admitted for upper GI [...] of creatinine change. Pending results will con career information specialist nephrology consultation. -No contrast-induced imaging identified per [...] the original. Nurse Progress Note by Ashley Esopsito RN at 09/03/18642 Author: Ashley Esposito RN Service: (none) Author Type: Registered Nurse Filed: 09/03/18642 Date of Service: 09/03/18642 Status: Signed Institution Director: Ashley Esposito RN (Registered Nurse) Patient's vitals stable, no acute changes. End of shift audit complete. onver miriam Transaction, Provider Unknown - 09/02/2018 5:17 PM PDT Nurse Progress Note by SN Odilia at 09/02/181716 Author: SN Odilia Service: (none) Author Type: Slat Pickler Filed: 09/02/18 1723 Date of Service: 09/02/181716 Status: Signed Institution Director: SN Odilia (Slat Pickler) Pt has had three loose stools this [...] Therapy Progress Note by Staci Meeks MS CCC-BULK PLANT AGENT at 09/02/185 Author: Staci Meeks MS CCC-BULK PLANT AGENT Service: (none) Author Type: Speech and Language Pat hologist Filed: 09/02/18 1215 Date of Service: 09/02/18 121 Status: Signed Institution Director: Staci Meeks MS CCC-BULK PLANT AGENT (Speech and Language Pathologist) BEDSIDE SWALLOW BULK PLANT AGENT Last Visit BULK PLANT AGENT Received On: 09/02/18 Requires BULK PLANT AGENT Follow Up: No Recommendations Liquids Consistency Recommendations: [...] was able to self feed and answer BULK PLANT AGENT's questions, though she did have minimal juice [...] no restrictions Liquids: Thin liquids: regular consistency BULK PLANT AGENT Ready for Discharge: Yes Swallowing Treatment: Yes [...] are progressing unless otherwise indicated. Dysphagia Goals Skilled Nursing Goals: Safe/efficient oral intake Pt will have [...] of learning [] Refused Staci Meeks MS [facility]-BULK PLANT AGENT 09/02/18 12:15 PM ble Ha may MD - 09/02/2018 8:45 AM PDTFormatting of this note might be different from th e original. Progress Notes by Ha Aguayo MD at 09/02/18 0852 Author: Ha Aguayo MD Service: Hospitalist Author Type: Physician Filed: 09/04/18 140 Date of Service: 09/02/18 1749 Status: Addendum Institution Director: Ha Aguayo MD (Physician) Related Notes: Original Note by Ha Aguayo MD (Physician) filed at 09/02/18 5162 [facility] Service: Hospitalist Progress Note Hospital Day: LOS: 8 days Post-Op Day: 4 Days Post-Op Procedure: Procedure(s) (LRB): ESOPHAGOGASTRODUODENOSCOPY (N/A) Briefly, 48-year-old female with extensive past medical history most significant for alcoho l abuse, decompensated alcoholic cirrhosis (ascites and esophageal varices status post sachin ng 2010), hypertension and other chronic comorbidities who presents to [facility] from [facility] ER for hematemesis admitted for upper GI [...] of creatinine change. Pending results will con career information specialist nephrology consultation. -No contrast-induced imaging identified per [...] 09/02/18525 Date of Service: 09/02/18525 Status: Signed Institution Director: Ashley Esposito RN (Registered Nurse) Patient's vitals stable, no acute changes. End of shift audit complete. onver miriam Transaction, Provider Unknown - 09/01/2018 5:09 PM PDT Nurse Progress Note by Steve Mancuso RN at 09/01/181708 Author: Steve Mancuso RN Service: (none) Author Type: Registered Nurse Filed: 09/01/18 180 Date of Service: 09/01/181708 Status: Signed Institution Director: Latter-Day J Mancuso, RN (Registered Nurse) Pt A&O [...] Date of Service: 09/01/18 1410 Status: Addendum Institution Director: Ha Aguayo MD (Physician) Related Notes: Original Note by Ha Aguayo MD (Physician) filed at 09/01/18 1420 [facility] Service: Hospitalist Progress Note Hospital Day: LOS: 7 days Post-Op Day: 4 Days Post-Op Procedure: Procedure(s) (LRB): ESOPHAGOGASTRODUODENOSCOPY (N/A) Briefly, 48-year-old female with extensive past medical history most significant for alcoho l abuse, decompensated alcoholic cirrhosis (ascites and esophageal varices status post sachin ng 2010), hypertension and other chronic comorbidities who presents to [facility] from [facility] ER for hematemesis admitted for upper GI [...] stable. Per my discussion with the RN (Latter-Day) the patient is more awake alert and [...] 09/01/181113 Date of Service: 09/01/181113 Status: Signed Institution Director: Princess Rodrigues RD (Registered Dietitian) 09/01/18 1006 [...] System (Mouth to Rectum) Pt with dysphagia; BULK PLANT AGENT is following. Anthropometrics Weight change Current wt: 66.4 kg, up 1.4 kg from admit. Per I/O's, pt is fluid +5.7 L; wi ll monitor. Biochemical data, medical tests, and procedures reviewed Biochemical data, medical tests, and procedures reviewed Na 147 (H), Cr 1.3 (H) - pt with A KI; Ammonia 94 (H) - receiving lactulose; will monitor. Recommendations Recommended energy needs BULK PLANT AGENT continue to follow and advance diet as [...] Note by Ashley Esposito RN at 09/01/18 0588 Author: Ashley Esposito RN Service: (none) Author Type: Registered Nurse Filed: 09/01/1846 Date of Service: 09/01/1845 Status: Signed Institution Director: Ashley Esposito RN (Registered Nurse) Patient's vitals stable, no acute changes. End of shift audit complete. onver miriam Transaction, Provider Unknown - 08/31/2018 5:43 PM PDT Nurse Progress Note by Steve Mancuso RN at 08/31/18 7852 Author: Steve Mancuso RN Service: (none) Author Type: Registered Nurse Filed: 08/31/181801 Date of Service: 08/31/181742 Status: Signed Institution Director: Steve Mancuso RN (Registered Nurse) Pt A&O [...] 08/31/181758 Date of Service: 08/31/18731 Status: Signed Institution Director: Ha Aguayo MD (Physician) [facility] Service: Hospitalist Progress Note Hospital Day: LOS: 6 days Post-Op Day: 4 Days Post-Op Procedure: Procedure(s) (LRB): ESOPHAGOGASTRODUODENOSCOPY (N/A) Briefly, 48-year-old female with extensive past medical history most significant for alcoho l abuse, decompensated alcoholic cirrhosis (ascites and esophageal varices status post sachin ng 2010), hypertension and other chronic comorbidities who presents to [facility] from [facility] ER for hematemesis admitted for upper GI [...] stable. Per my discussion with the RN (Latter-Day) the patient is more awake alert and [...] The patient is to be discharged to long term facility likely to occur on Saturday 09/02 [...] 08/31/18445 Date of Service: 08/31/18445 Status: Signed Institution Director: Ahsan Solis RN (Registered Nurse) No acute changes this shift. End of shift audits complete. Ahsan Solis RN onver miriam Transaction, Provider Unknown - 08/30/2018 5:20 PM PDT Nurse Progress Note by Steve Mancuso RN at 08/30/181719 Author: Steve Mancuso RN Service: (none) Author Type: Registered Nurse Filed: 08/30/18 1804 Date of Service: 08/30/181719 Status: Addendum Institution Director: Latter-Day J Mancuso, RN (Registered Nurse) Related Notes: [...] Therapy Progress Note by Staci Meeks MS CCC-BULK PLANT AGENT at 08/30/18 1537 Author: Staci Meeks MS CCC-BULK PLANT AGENT Service: (none) Author Type: Speech and Language Pat hologist Filed: 08/30/18 1537 Date of Service: 08/30/187 Status: Signed Institution Director: Staci Meeks MS CCC-BULK PLANT AGENT (Speech and Language Pathologist) 08/30/18 1500 BULK PLANT AGENT Last Visit BULK PLANT AGENT Received On 08/30/18 Requires BULK PLANT AGENT Follow Up Unavailable Attempted, pt receiving care from RN. Will re-attempt as census permits. Staci Meeks MS CCC-BULK PLANT AGENT 08/30/18 3:37 PM a Moy MD - 08/30/2018 2:20 PM PDTFormatting of this note might be different from th e original. Progress Notes by Ha Aguayo MD at 08/30/18 1420 Author: Ha Aguayo MD Service: Hospitalist Author Type: Physician Filed: 08/30/181923 Date of Service: 08/30/18 1420 Status: Signed Institution Director: Ha Aguayo MD (Physician) [facility] Service: Hospitalist Progress Note Hospital Day: LOS: 5 days Post-Op Day: 4 Days Post-Op Procedure: Procedure(s) (LRB): ESOPHAGOGASTRODUODENOSCOPY (N/A) Briefly, 48-year-old female with extensive past medical history most significant for alcoho l abuse, decompensated alcoholic cirrhosis (ascites and esophageal varices status post sachin ng 2010), hypertension and other chronic comorbidities who presents to [facility] from [facility] ER for hematemesis admitted for upper GI [...] Inpatient Code Status: DNR/DNI aH Aguayo MD 08/30/2018 onversion Transact ion, Provider Unknown - 08/30/2018 8:10 AM PDTFormatting of this note might be different fr om the original. Case Management by HANNAH Robertson at 08/30/18 0810 Author: HANNAH Robertson Service: (none) Author Type: Geodetic Technician Filed: 08/30/18 8148 Date of Service: 08/30/18809 Status: Addendum Institution Director: HANNAH Robertson (Geodetic Technician) Related Notes: Original Note by HANNAH Robertson (Geodetic Technician) filed at 08/30/18 7403 Referral sent to [facility] for SNF placement. [facility] [address] [place] [address] Ralph- Admissions CM attempted to reach [facility]. A voicemail was left. Per [facility], pt has an insurance that will need authorization. Pt will not be able to discharg e over the weekend. CM on Sunday to follow up with [facility]. [facility] would also like to see how pt is doing on Sunday before accepting or declining pt. HANNAH Robertson erclSaritha DO - 08/29/2018 10:23 PM PDTFormatting of this note might be different from the orig inal. Progress Notes by Saritha Prado DO at 08/29/182222 Author: Saritha Prado DO Service: Hospitalist Author Type: Physician Filed: 08/29/182231 Date of Service: 08/29/182222 Status: Signed Institution Director: Saritha Prado DO (Physician) Called by the [...] 0635 Date of Service: 08/29/182158 Status: Signed Institution Director: Ahsan Solis RN (Registered Nurse) 2032- pt [...] 08/29/181844 Date of Service: 08/29/181839 Status: Signed Institution Director: Concetta Alvarez RN (Registered Nurse) Pt oriented [...] Author: HANNAH Denis Service: (none) Author Type: Geodetic Technician Filed: 08/29/18 1631 Date of Service: 08/29/18 163 Status: Signed Institution Director: HANNAH Denis (Geodetic Technician) Discharge planning: Pending clinical course. Family is requesting [facility] if pt is needing a SNF. ana Ott i, MD - 08/29/2018 1:32 PM PDTFormatting of this note might be different fro m the original. Progress Notes by Zana Cho MD at 08/29/18 1332 Author: Zana Cho MD Service: Hospitalist Author Type: Physician Filed: 09/03/18 1520 Date of Service: 08/29/18 1332 Status: Addendum Institution Director: Zana Cho MD (Physician) Related Notes: Original Note by Zana Cho MD (Physician) filed at 08/29/18 1441 [facility] Service: Hospitalist Progress Note Hospital Day: LOS: [...] hours. No results for input(s): PHART, PO2ART, HZN3FGV, X0VJPBKB, BEART in the last 168 hours. Recent [...] the original. Progress Notes by Mendy Escobar Percussion Instrument Tuner at 08/29/18 1311 Author: Eric Gallegosetic Intern Service: (none) Author Type: Scottie livingston Filed: 08/29/18 1312 Date of Service: 08/29/18 1311 Status: Attested Institution Director: Eric Gallegosetic Intern (Registered Dietitian) Cosigner: Jovana farrar RD at 08/29/18 1345 Attestation signed by Jovana Neal RD at 08/29/[address], CD 08/29/18 1052 Subjective Timepoint Admit Pt c/o Pt triggered for screening 2/2 dysphagia. Pt admitted for ETOH withdrawal and upper GI bleed. Pt on CIWA and GI following s/p EGD. BULK PLANT AGENT following, moderate aspiration risk. Pt s leeping [...] Recommended energy needs Continue pureed diet per BULK PLANT AGENT recommendations. Encourage PO intake with 1:1 feed assistance. House trays and supplement ordered, Boost Pudding (alternate ruddy late/vanilla) TID at snack times. Will continue to follow per nutrition protocol. Nutritional Risk Nutritional risk High Follow up date 09/01/18 Mendy Escobar, Percussion Instrument Tuner onver miriam Transaction, Provider Unknown - 08/29/2018 4:12 AM PDT Nurse Progress Note by Rosalinda Callahan RN at 08/29/18411 Author: Rosalinda Callahan RN Service: (none) Author Type: Registered Nurse Filed: 08/29/18 0643 Date of Service: 08/29/18411 Status: Addendum Institution Director: Rosalinda Callahan RN (Registered Nurse) Related Notes: [...] 08/28/181807 Date of Service: 08/28/181746 Status: Signed Institution Director: Concetta Alvarez RN (Registered Nurse) Pt oriented to person and sometimes date. Afebrile. BP elevated throughout shift. PRN labetalol given x1. PIV infiltrated. Midline placed. Per television installer, pt had 11 beats of PAT. MD notified. Strip in chart. Magnesium replaced for level of 1.5. Currently replacing potassium for level of 3.3. Max CIWA score was 8. Ativan not given. End of shift review complete. CONCETTA ALVAREZ RN eghan Tate MS CCC-BULK PLANT AGENT - 08/28/2018 4:05 PM PDTFormatting of this note might be different f rom the original. Therapy Progress Note by Meghan Rodriguez MS CCC-BULK PLANT AGENT at 08/28/18 1605 Author: Meghan Rodriguez MS CCC-BULK PLANT AGENT Service: (none) Author Type: Speech and Language Pa thologist Filed: 08/28/18 1606 Date of Service: 08/28/18 1605 Status: Signed Institution Director: Meghan Rodriguez MS CCC-BULK PLANT AGENT (Speech and Language Pathologist) 08/28/18 1605 BULK PLANT AGENT Last Visit BULK PLANT AGENT Received On 08/28/18 Requires BULK PLANT AGENT Follow Up On hold (not appropriate d/t mentation) Per MD, pt not appropriate at this time. ST to check back tomorrow. onversio n Transaction, Provider Unknown - 08/28/2018 1:35 PM PDTFormatting of this note might be di fferent from the original. Case Management by Jodie Sebastian RN at 08/28/181334 Author: Jodie Sebastian RN Service: (none) Author Type: Registered Nurse Filed: 08/28/18 7968 Date of Service: 08/28/181334 Status: Signed Institution Director: Jodie Sebastian RN (Registered Nurse) CM attended [...] 08/28/181335 Date of Service: 08/28/181331 Status: Addendum Institution Director: Zana Cho MD (Physician) Related Notes: Original Note by Zana Cho MD (Physician) filed at 08/28/18 715 [facility] Service: Hospitalist Progress Note Hospital Day: LOS: [...] hours. No results for input(s): PHART, PO2ART, OUP8HVE, P4TMIKIK, BEART in the last 168 hours. Recent [...] 08/28/18699 Date of Service: 08/28/18453 Status: Signed Institution Director: Rosalinda Callahan RN (Registered Nurse) Pt disoriented [...] check complet ed. Rosalinda Callahan RN onver miraim Transaction, Provider Unknown - 08/27/2018 7:29 PM PDT Nurse Progress Note by Rosalinda Martinez RN at 08/27/181928 Author: Rosalinda Martinez RN Service: (none) Author Type: Registered Nurse Filed: 08/27/181946 Date of Service: 08/27/181928 Status: Addendum Institution Director: Rosalinda Martinez RN (Registered Nurse) Related Notes: [...] Notes by Zana Cho MD at 08/27/18 4824 Author: Zana Cho MD Service: Hospitalist Author Type: Physician Filed: 08/27/18 1200 Date of Service: 08/27/18 0540 Status: Signed Institution Director: Zana Cho MD (Physician) [facility] Service: Hospitalist Progress Note Hospital Day: LOS: [...] hours. No results for input(s): PHART, PO2ART, HLT6XYD, C5KTHIWP, BEART in the last 168 hours. Recent [...] Date of Service: 08/27/18 1125 Status: Signed Institution Director: Erica Venegas PT (Physical Therapist) 08/27/18 1125 [...] Progress Notes by PERNELL Wallace at 08/27/18 2002 Author: PERNELL Wallace Service: Gastroenterology Author Type: Physician Assistan t - Certified Filed: 08/27/18 1214 Date of Service: 08/27/1837 Status: Attested Institution Director: PERNELL Wallace (Physician Chalk Extruding Machine Operator - Certified) Cosigner: Mitchell Stewart IV, MD at 08/27/182143 Attestation signed by Mitchell Stewart IV, MD at 08/27/182143 GASTROENTEROLOGY ATTENDING ATTESTATION The advanced practice provider made rounds on this patient. I did not formally evaluate pat ient in person today. We discussed the case and I agree with the assessment and plan as wri jenae. [facility] Service: Gastroenterology Consult Progress Note Hospital Day: LOS: 2 days SUBJECTIVE Patient Summary: Shaila Son is a 48 y.o. female Patient with ongoing alcohol abuse and history of alcohol associated cirrhosis with reporte dly remote variceal band ligation, ascites, episodes of hepatic encephalopathy, previous alc ohol associated seizures and withdrawal syndrome transferred to [facility] [...] severe shakes. Alcohol level was elevated at [facility] but obviously not known how high [...] it. Claims she had x-rays done in [place]. Events Overnight: Had EGD and showed portal [...] 08/26/2018 INR 1.2 08/25/2018 INR 1.3 04/10/2016 [facility] GI Patient Name: Shaila SonDania Procedure Date: [...] 08/26/2018 5:27 PM Number of Addenda: 0 [facility] - Endoscopy Services PROBLEM LIST Principal Problem: [...] off at this time. Yareli Mckinnon PA-C [facility] Gastroenterology 08/27/2018 onversion Transa ction, Provider Unknown - 08/27/2018 6:00 AM PDT Nurse Progress Note by Sandi Melgar RN at 08/27/18599 Author: Sandi Melgar RN Service: (none) Author Type: Registered Nurse Filed: 08/27/18603 Date of Service: 08/27/18599 Status: Signed Institution Director: Sandi Melgar RN (Registered Nurse) Pt A&Ox4, VSS, afebrile. PRN ativan given per CIWA score and orders. Pt has auditory and visual hallucinations at times. Walking boot on to protect foot/leg. 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 ABD remains distended but soft and active [...] 08/26/181809 Date of Service: 08/26/181806 Status: Addendum Institution Director: Josie Tovar RN (Registered Nurse) Related Notes: [...] Date of Service: 08/26/18 1639 Status: Signed Institution Director: Josie Tovar RN (Registered Nurse) Patient was [...] Date of Service: 08/26/18 1620 Status: Addendum Institution Director: Jodie Sebastian RN (Registered Nurse) Related Notes: [...] Vazquez Relationship to Patient boyfriend Phone number [phone] Mental Status Confused Prior functional status needs [...] (TBD) CM contacted pt's brother Viktor Son #[phone] as pt is currently confused and dis cussed discharge planning, per Viktor pt is a 48 y.o., female who lives with her boyfriend Kendal Vazquez #[phone] and he assists in pt's care. Viktor is unsure of pt's housing si tuation or if she has a POA. Pt needs assist with ADL's and uses a walker or wheelchair for ambulation. Pt does not use oxygen or anticoagulation. Patient's PCP is: Ana M Brush Patient's insurance: Medicaid/ [employer] [facility] Coverage concerns: no Medication coverage/concerns: no [...] Date of Service: 08/26/18 1533 Status: Signed Institution Director: Josie Tovar RN (Registered Nurse) Spoke to [...] Notes by Zana Cho MD at 08/26/18 6160 Author: Zana Cho MD Service: Hospitalist Author Type: Physician Filed: 08/27/18 1149 Date of Service: 08/26/18 1410 Status: Signed Institution Director: Zana Cho MD (Physician) Related Notes: Original Note by Zana Cho MD (Physician) filed at 08/26/18 1413 [facility] Service: Hospitalist Progress Note Hospital Day: LOS: [...] hours. No results for input(s): PHART, PO2ART, VNH7VWW, F5IOJBAJ, BEART in the last 168 hours. Recent [...] Date of Service: 08/26/18 1210 Status: Signed Institution Director: Jodie Sebastian RN (Registered Nurse) Pt is [...] Date of Service: 08/26/18 1205 Status: Signed Institution Director: Josie Tovar RN (Registered Nurse) Received a [...] soon as he can. Biju'ls number are [phone] or [phone]. JOSIE TOVAR RN onver miriam Transaction, Provider Unknown - 08/26/2018 6:18 AM PDT Nurse Progress Note by Sandi Melgar RN at 08/26/18617 Author: Sandi Melgar RN Service: (none) Author Type: Registered Nurse Filed: 08/26/18625 Date of Service: 08/26/18617 Status: Signed Institution Director: Sandi Melgar RN (Registered Nurse) Pt A&Ox3, [...] 08/25/181949 Date of Service: 08/25/181946 Status: Signed Institution Director: Princess Bower, RN (Registered Nurse) Pt transferred [...] 08/25/181699 Date of Service: 08/25/181699 Status: Signed Institution Director: Elida Cruz RPH (Pharmacist) Renal Dosing Monitoring: [...] 08/26/181722 Date of Service: 08/26/181721 Status: Signed Institution Director: Mitchell Stewart IV, MD (Physician) [facility] Service: Gastroenterology Service Pre-procedure History & Physical Update Patient Name: Shaila Son Date of Admission: 08/26/2018 On reexamination of the patient and patient's chart today, there are no changes. Moderate Sedation Presedation Assessment completed. ASA Classification: Per Anesthesia Service Mallampati Classification: Per Anesthesia Service Tod Stewart IV, M.D. [facility] Gastroenterology 08/26/2018 aulina Wu M D - 08/25/2018 3:10 PM PDT H&P by Paulina Wu MD at 08/25/181509 Author: Paulina Wu MD Service: Hospitalist Author Type: Physician Filed: 08/25/182135 Date of Service: 08/25/181509 Status: Addendum Institution Director: Paulina Wu MD (Physician) Related Notes: Original Note by Paulina Wu MD (Physician) filed at 08/25/181815 [facility] Service: Hospitalist Admission History & Physical Pt: [...] banding in 2010, HTN presented to [facility] ED for hematemesis, transferred here for GI [...] and request for transfer was made to [facility] ED. Active comorbid conditions include: - essential [...] ESOPHAGOGASTRODUODENOSCOPY; Surgeon: Mitchell Stewart IV, MD; Location: [facility]; Service: Gastroenterology; Laterality: N/A; anesthesia assist if available since may be difficult to sedate Hx of tracheostomy Allergies Allergen Reactions Aspirin Anaphylaxis Pt unable to recall, this information came from [facility] record Lactose Anaphylaxis Pt unable to recall, this information came from [facility] record Ciprofloxacin Other (See Comments) Pt. Unable to recall, this information came from [facility] record Ibuprofen Other (See Comments) Pt. Unable to recall, this information came from [facility] record Prior to Admission medications [...] original. Procedures by SHANIA Panchal at 09/03/18 8217 Author: SHANIA Panchal Service: Radiology Author Type: Advanced Registered Nurse Snoam buck Filed: 09/03/18 6708 Date of Service: 09/03/18 1048 Status: Signed Institution Director: SHANIA Panchal (Advanced Registered Nurse Practitioner) Pre-procedure Diagnoses: 1. Other ascites [R18.8] Post-procedure Diagnoses: 1. Other ascites [R18.8] Procedures: 1. PARACENTESIS [[id number] (Custom)] Therapeutic and diagnostic ultrasound-guided paracentesis performed at bedside. 3000 mL of clear, yellow fluid removed. Patient tolerated procedure well, vital signs remained stable throughout the procedure. No immediate post procedural complications encountered. See dictation for full details. SHANAI Panchal 09/03/2018 1:03 PM Mitchell Rose MD - 08/26/2018 5:27 PM PDT Procedures signed by at 08/26/18 4875 Author: Mitchell Stewart IV, MD Service: Gastroenterology Author Type: Physician Filed: 08/26/18 6401 Date of Service: 08/26/18 0565 Status: Signed Institution Director: Mitchell Stewart IV, MD (Physician) Procedure Orders: 1. EGD [[id number]] ordered by Mitchell Stewart IV, MD at 08/26/18 1650 documented in th is encounter Consult Notes Mitchell Stewart MD - 08/25/2018 4:03 PM PDT Consult* by Mitchell Stewart IV, MD at 08/25/18 1603 Author: Mitchell Stewart IV, MD Service: Gastroenterology Author Type: Physician Filed: 08/25/18 1711 Date of Service: 08/25/18 1603 Status: Signed Institution Director: Mitchell Stewart IV, MD (Physician) [facility] Gastroenterology Service Initial Inpatient Consult Note Date [...] associated seizures and withdrawal syndrome transferred to [facility] due to [facility] [...] severe shakes. Alcohol level was elevated at [facility] but obviously not known how high [...] it. Claims she had x-rays done in [place]. [facility] Report from Julio SANDOVAL. Pt arrived there [...] de drip not started [facility] due to limited IV access. Current Vitals: [...] unable to recall, this information came from [facility] record Lactose Anaphylaxis Pt unable to recall, this information came from [facility] record Ciprofloxacin Other (See Comments) Pt. Unable to recall, this information came from [facility] record Ibuprofen Other (See Comments) Pt. Unable to recall, this information came from [facility] record MEDICATIONS: No current facility-administered [...] ESOPHAGOGASTRODUODENOSCOPY; Surgeon: Mitchell Stewart IV, MD; Location: [facility]; Service: Gastroenterology; Laterality: N/A; anesthesia [...] previous pertinent records in her electronic chart [facility] Service: Gastroenterology ENDOSCOPY SUITE PROCEDURE NOTE Esophagogastroduodenoscopy [...] follow with you. Tod Stewart IV, M.D. [facility] Gastroenterology 08/25/2018 This note was dictated using [employer] voice recognition software. Document was reviewed at ti me of dictation but eyysi-c-[id number] errors may be present. Please call with [...] 1353 Date of Service: 08/25/181336 Status: Signed Institution Director: Jose Roach RN (Registered Nurse) Pt transferred from [place] ER with low H+H from GI bleed, sequela to ETOH. Pt has weak voice but is A+Ox 3. athes on, Ajay Rice MD - 08/25/2018 1:35 PM PDT ED Provider Notes by Ajay Spear MD at 08/25/18 6270 Author: Ajay Spear MD Service: Emergency Department Author Type: Physician Filed: 08/25/18 4609 Date of Service: 08/25/181334 Status: Signed Institution Director: Ajay Spear MD (Physician) Procedure Orders: 1. Critical Care [[id number]] ordered by Paulina Wu MD at 08/25/18 1700 [facility] Department of Emergency Medicine Pre-arrival Provider: Another [...] modifying factors are reported. Was seen at [facility] for the same and was given a unit of blood and had ascites fluid drawn. Reportedl y had seizures there. Patient also complains of seizures, vomiting, diarrhea, and abdominal pain. Patient denies bloody stools, fever, or any other symptoms at this time. Care POST CLOSING SPECIALIST con sisted of one unit of blood, with moderate relief. Past Medical History Diagnosis Date Anemia Hemorrhage of gastrointestinal tract, unspecified Hypertension Liver disease Seizures (HCC) Past Surgical History Procedure Laterality Date BACK SURGERY ESOPHAGOGASTRODUODENOSCOPY N/A 07/30/2011 Procedure: ESOPHAGOGASTRODUODENOSCOPY; Surgeon: Mitchell Stewart IV, MD; [facility]; Service: Gastroenterology; Laterality: N/A; anesthesia [...] unable to recall, this information came from [facility] record Lactose Anaphylaxis Pt unable to recall, this information came from [facility] record Ciprofloxacin Other (See Comments) Pt. Unable to recall, this information came from [facility] record Ibuprofen Other (See Comments) Pt. Unable to recall, this information came from [facility] record Social History Social History [...] sore throat CV/Resp: Negative for chest pain, [id number]-[id number], cough GI: Positive for hematemesis Positive for [...] some generalized abdominal pain. Seen at [facility] where she was evaluated. She had 6L [...] 0.069. 2:24 PM Spoke with RAMÓN Everett acid purification equipment operator, who is familiar with the pt. Anticipates [...] Value Ref Range Date/Time Type and Screen [[id number]] Collected: 08/25/18 1435 Order Status: Completed Specimen: Blood Updated: 08/25/18 1544 ABO/RH(D) O POSITIVE ANTIBODY SCREEN NEGATIVE ARM BAND NUMBER -- [id number] Testing performed at [facility];[address] [place] [address];[place] [address] Ammonia level [[id number]] Collected: 08/25/18 1407 Order Status: Completed Specimen: Blood Updated: 08/25/18 1441 AMMONIA 32 <33 umol/L Troponin I, Lab [[id number]] (Abnormal) Collected: 08/25/18 1345 Order Status: Completed Specimen: Blood Updated: 08/25/18 1414 TROPONIN I 0.069 (H) 0.00 - 0.04 ng/mL Magnesium [[id number]] (Abnormal) Collected: 08/25/18 1345 Order Status: Completed Specimen: Blood Updated: 08/25/18 1414 MAGNESIUM 1.5 (L) 1.7 - 2.4 mg/dL Blood alcohol level (ethanol) [[id number]] (Abnormal) Collected: 08/25/181344 Order Status: Completed Updated: 08/25/181413 ALCOHOL,ETHYL 59 (H) <10 mg/dL Cardiac Panel [[id number]] (Abnormal) Collected: 08/25/181344 Order Status: Completed Updated: [...] Rhythm- sinus tachycardia Normal P waves, normal ME interval, normal QRS, nonspecific ST and T [...] 08/25/181325 Date of Service: 08/25/181325 Status: Signed Institution Director: Alice Murrell RN (Registered Nurse) Bed: 05 Expected date: Expected time: Means of arrival: Comments: Luis E chiu. Alice Murrell RN 08/25/18 1326 onver miriam Transaction, Provider Unknown - 08/25/2018 1:00 PM PDT ED Triage Notes by Alice Murrell RN at 08/25/18 1300 Author: Alice Murrell RN Service: (none) Author Type: Registered Nurse Filed: 08/25/18 1320 Date of Service: 08/25/18 1300 Status: Signed Institution Director: Alice Murrell RN (Registered Nurse) [facility] Report from Julio SANDOVAL. Pt arrived there [...] 09/05/1828 Date of Service: 09/05/1828 Status: Signed Institution Director: Alba Boss RN (Registered Nurse) Problem: Risk [...] Date of Service: 09/04/18 1528 Status: Signed Institution Director: Philipp Sargent RN (Registered Nurse) Elimination Elimination [...] 09/04/18524 Date of Service: 09/04/18524 Status: Signed Institution Director: Chadwick Murdock RN (Registered Nurse) Problem: Pain [...] 09/03/181746 Date of Service: 09/03/181746 Status: Signed Institution Director: Rosalinda Sanz RN (Registered Nurse) Problem: Elimination [...] 09/03/18310 Date of Service: 09/03/18310 Status: Signed Institution Director: Ashley Esposito RN (Registered Nurse) Problem: Safety [...] 09/02/181432 Date of Service: 09/02/181432 Status: Signed Institution Director: Rosalinda Sanz RN (Registered Nurse) Problem: Elimination [...] 09/02/18441 Date of Service: 09/02/18441 Status: Signed Institution Director: Ashley Esposito RN (Registered Nurse) Problem: Safety [...] 09/01/181707 Date of Service: 09/01/181707 Status: Signed Institution Director: Steve Mancuso RN (Registered Nurse) Problem: Safety [...] by Ashley Esposito RN at 09/01/18502 Author: sAhley Esposito RN Service: (none) Author Type: Registered Nurse Filed: 09/01/18502 Date of Service: 09/01/18502 Status: Signed Institution Director: Ashley Esposito RN (Registered Nurse) Problem: Safety [...] 08/31/181742 Date of Service: 08/31/181742 Status: Signed Institution Director: Steve Mancuso RN (Registered Nurse) Problem: Safety [...] 08/31/18130 Date of Service: 08/31/18130 Status: Signed Institution Director: Ahsan Solis RN (Registered Nurse) Problem: Elimination [...] 08/30/181718 Date of Service: 08/30/181718 Status: Signed Institution Director: Steve Mancuso RN (Registered Nurse) Problem: Safety [...] 08/30/1844 Date of Service: 08/30/1844 Status: Signed Institution Director: Ahsan Solis RN (Registered Nurse) Problem: Discharge [...] 1623 Date of Service: 08/29/181509 Status: Signed Institution Director: Erica Venegas PT (Physical Therapist) PHYSICAL THERAPY EVALUATION PT Received On: 08/29/18 Reason for Treatment: Deconditioning, LE fracture (GIB, CIWA, recent R tib/fib fx) Requires PT Follow Up: Yes PT Eval/Reassessment Date: 08/29/18 Recommendations: SNF Equipment Recommended: (TBD) Barriers to Discharge: Physical Deficits Impacting Functional Real, Self-care Defic its Impacting Functional Real, Lack of Family Support/Training (limited help at [...] a 48 y.o. female who presents to [facility] for hematemesis and admitted for GIB [...] session as able. Prior Function Level of Real: Assist with functional mobility, Assist with ADLs, [...] minimal assist, With standby assist Low - 77812 Moderate - 83355 High - 81148 History [] no personal factors &/or comorbidities [] 1-2 personal factors &/or comorbiditi es [x] 3 or more personal factors &/or comorbidities Examination [] 1-2 elements [x] 3 elements [] 4 or more elements Clinical Presentation [] stable [x] evolving [] unstable Clinical Decision Making Complexity: [] Low 48995 [x] Moderate 96958 [] High 9 7163 Past Medical History Diagnosis Date Anemia Hemorrhage of gastrointestinal tract, unspecified Hypertension Liver disease Seizures (HCC) lan o f Care - Conversion Transaction, Provider Unknown - 08/29/2018 10:53 AM PDTFormatting of thi s note might be different from the original. Plan of Care by SN Lisa at 08/29/18 105 Author: SN Lisa Service: (none) Author Type: Slat Pickler Filed: 08/29/18 1051 Date of Service: 08/29/181052 Status: Signed Institution Director: SN Lisa (Slat Pickler) Problem: Pain Goal: Patient's pain/discomfort is manageable [...] original. Treatment Plan by Rashid Ryder MS CCC-BULK PLANT AGENT at 08/29/18729 Author: Rashid Ryder MS CCC-BULK PLANT AGENT Service: (none) Author Type: Speech and Language Pat hologist Filed: 08/29/1812 Date of Service: 08/29/18729 Status: Signed Institution Director: Rashid Ryder MS CCC-BULK PLANT AGENT (Speech and Language Pathologist) BEDSIDE SWALLOW BULK PLANT AGENT Last Visit BULK PLANT AGENT Received On: 08/29/18 Requires BULK PLANT AGENT Follow Up: Yes Recommendations Liquids Consistency Recommendations: [...] are progressing unless otherwise indicated. Dysphagia Goals Skilled Nursing Goals: Safe/efficient oral intake Pt will have [...] a nd stated understanding. Rashid Ryder MS [facility]-BULK PLANT AGENT lan o f Care - Conversion Transaction, Provider Unknown - 08/28/2018 10:31 PM PDTFormatting of alisha s note might be different from the original. Plan of Care by Rosalinda Callahan RN at 08/28/182230 Author: Rosalinda Callahan RN Service: (none) Author Type: Registered Nurse Filed: 08/28/182230 Date of Service: 08/28/182230 Status: Signed Institution Director: Rosalinda Callahan RN (Registered Nurse) Problem: Elimination [...] 08/28/181144 Date of Service: 08/28/181144 Status: Signed Institution Director: Concetta Alvarez RN (Registered Nurse) Problem: Fluid [...] 08/27/182301 Date of Service: 08/27/182301 Status: Signed Institution Director: Rosalinda Callahna RN (Registered Nurse) Problem: Pain Goal: Patient's [...] 08/27/181555 Date of Service: 08/27/181555 Status: Signed Institution Director: Rosalinda Martinez RN (Registered Nurse) Problem: Safety [...] 08/27/1835 Date of Service: 08/27/1835 Status: Signed Institution Director: Sandi Melgar RN (Registered Nurse) Problem: Safety [...] 08/26/181751 Date of Service: 08/26/181751 Status: Signed Institution Director: Mitchell Stewart IV, MD (Physician) [facility] Service: Gastroenterology Operative Note Procedure note was [...] 08/26/181754 Date of Service: 08/26/181726 Status: Signed Institution Director: Mitchell Stewart IV, MD (Physician) Patient Instructions [...] 08/26/181157 Date of Service: 08/26/181157 Status: Signed Institution Director: Josie Tovar RN (Registered Nurse) Problem: Safety [...] 08/26/18145 Date of Service: 08/26/18145 Status: Signed Institution Director: Sandi Melgar RN (Registered Nurse) Problem: Safety [...] 08/25/181541 Date of Service: 08/25/181541 Status: Signed Institution Director: Sharri Leon RPH (Pharmacist) Rx Admission Medication History Note Pharmacy is unable to obtain best possible medication history at this time. Thanks Sharri Leon, PharmD, [facility] >> Arielle Sellers CPhT 08/25/2018 14:38 [...] | | | Random | performed at [facility], [address] | | | | | [address], | | | | | | [place] [address] | | | | + + + [...] LAB | | | | performed at [facility], [address], | | | | | | [place] [address] | | | | + + + [...] EXTERNAL | | | | performed at [facility], [address] | | LAB | | | | [address], | | | | | | [place] [address] | | | | + + + [...] | | | | | | MDRD IDMN traceable | | | | | | equation.Testing | | | | | | performed at [facility], [address] | | | | | | [facility], | | | | | | [place] [address] | | | | + + [...] EXTERNAL | | | | performed at [facility], [address] | | LAB | | | | [address], | | | | | | [place] [address] | | | | + + + [...] | | | | | | MDRD IDMN traceable | | | | | | equation.Testing | | | | | | performed at [facility], [address] | | | | | | [facility], | | | | | | [place] [address] | | | | + + + [...] 100 Testing | | | performed at [facility];[address] [facility];[place] [address] | | + + + + +---------+ [...] | EXTERNAL LAB | | not a structural welder validated sample type for this method. No reference | | | ranges have been established. Testing performed at [facility], [address] | | | [place] [address] FLUID TP SOURCE | | | ASCITES FLUID Testing performed at [facility];[address] | | | [facility];[place] [address] | | + + + + +---------+ [...] | EXTERNAL LAB | | not a structural welder validated sample type for this method. No | | | reference ranges have been established. Testing performed at [facility], | | | [address] [place] [address] | | + + + + +---------+ [...] recognition system. The possibility of "sound alike" otolaryngology nurse | | | errors, addition and/or deletions [...] The | | possibility of "sound alike" otolaryngology nurse errors, addition and/or deletions may occur. | [...] system. The possibility of "sound a like" otolaryngology nurse errors, addition and/or deletions may occur. If [...] EXTERNAL | | | | performed at [facility], [address] | | LAB | | | | [address], | | | | | | [place] [address] | | | | + + + [...] | | | Patient | performed at [facility];[address] | | LAB | | | | [address];[place] | | | | | | [address] | | | | + + + [...] | | | | | performed at [facility] | | | | | | [address];[place] | | | | | | [address] | | | | + + + [...] | | | | | performed at [facility], [address] | | | | | | [facility], | | | | | | [place] [address] | | | | + + + [...] EXTERNAL | | | | performed at [facility], [address] | | LAB | | | | [address], | | | | | | [place] [address] | | | | + + + [...] EXTERNAL | | | | performed at [facility], [address] | | LAB | | | | [address], | | | | | | [place] [address] | | | | + + + [...] | | | | | performed at [facility], [address] | | | | | | [facility], | | | | | | [place] [address] | | | | + + + [...] | | | Random | performed at [facility], [address] | | | | | [address] [facility], | | | | | | [place] [address] | | | | + + + [...] LAB | | | | performed at [facility], [address] | | | | | | [address], | | | | | | [place] [address] | | | | + + + [...] EXTERNAL | | | | performed at [facility], [address] | | LAB | | | | Katie [address]orden, | | | | | | [place] [address] | | | | + + + [...] EXTERNAL | | | | performed at [facility], [address] | | LAB | | | | Katie [address]orden, | | | | | | [place] [address] | | | | + + + [...] | | | | | performed at [facility], [address] | | | | | | [facility], | | | | | | [place] [address] | | | | + + + [...] LAB | | | | performed at [facility];[address] | | | | | | [address];[place], [place] | | | | | | [address] | | | | + + + [...] | | | | | performed at [facility];[address] | | | | | | [facility];[place], [place] | | | | | | [address] | | | | + + + [...] | | | | | [place] [address] | | | | + + + [...] | | | Reticulocyt | performed at [facility];[address] | | LAB | | | e Count | [address] [facility];[place], [place] | | | | | | [address] | | | | + + + [...] | | | Basophils | performed at [facility], [address] | K/uL | LAB | | | | [facility], | | | | | | [place] [address] | | | | + + + [...] EXTERNAL | | | | performed at [facility], [address] | | LAB | | | | Katie Borden, | | | | | | [place] [address] | | | | + + + [...] | | | External | performed at [facility], [address] | | LAB | | | | Katie Borden, | | | | | | [place] [address] | | | | + + + [...] | | | | | performed at [facility], [address] | | | | | | [facility], | | | | | | [place] [address] | | | | + + + [...] LAB | | | | performed at [facility];[address] | | | | | | [address];[place], [place] | | | | | | [address] | | | | + + + [...] EXTERNAL | | | | performed at [facility], [address] | | LAB | | | | Katie Borden, | | | | | | [place] [address] | | | | + + + [...] | | | | | [place] [address] | | | | + + + [...] | | | | | | MDRD IDMN traceable | | | | | | equation.Testing | | | | | | performed at [facility], [address] | | | | | | [facility], | | | | | | [place] [address] | | | | + + + [...] EXTERNAL | | | | performed at [facility];[address] | mmol/L | LAB | | | | [address];[place] | | | | | | [address] | | | | + + + [...] | | | | | performed at [facility];[address] | | | | | | [facility];[place], [place] | | | | | | [address] | | | | + + + [...] | | | Basophils | performed at [facility], [address] | K/uL | LAB | | | | [address], | | | | | | [place] [address] | | | | + + + [...] | | | | | | [place] [address] | | | | + + + [...] | | | | | [place] [address] | | | | + + + [...] EXTERNAL | | | | performed at [facility], [address] | | LAB | | | | Katie Borden, | | | | | | [place] [address] | | | | + + + [...] EXTERNAL | | | | performed at [facility];[address] | mmol/L | LAB | | | | [address];[place], [place] | | | | | | [address] | | | | + + + [...] EXTERNAL | | | | performed at [facility];[address] | | LAB | | | | [address];[place] | | | | | | [address] | | | | + + + [...] EXTERNAL | | | | performed at [facility];[address] | | LAB | | | | [address];[place], [place] | | | | | | [address] | | | | + + + [...] | | | Basophils | performed at [facility];[address] | K/uL | LAB | | | | [address];[place] | | | | | | [address] | | | | + + + [...] EXTERNAL | | | | performed at [facility], [address] | | LAB | | | | Katie Borden, | | | | | | [place] [address] | | | | + + + [...] EXTERNAL | | | | performed at [facility], [address] | | LAB | | | | Katie [address]orden, | | | | | | [place] [address] | | | | + + + [...] | | | | [facility], | | | | | | [place] [address] | | | | + + + [...] | | | Basophils | performed at [facility];[address] | K/uL | LAB | | | | [address];[place], [place] | | | | | | [address] | | | | + + + [...] EXTERNAL | | | | performed at [facility], [address] | | LAB | | | | Katie [address]orden, | | | | | | [place] [address] | | | | + + + [...] EXTERNAL | | | | performed at [facility], [address] | | LAB | | | | Katie [address]orden, | | | | | | [place] [address] | | | | + + + [...] | | | | | performed at [facility], [address] | | | | | | [facility], | | | | | | [place] [address] | | | | + + + [...] + + | Historically converted procedure from [facility] Epic environment | EXTERNAL LAB | | [facility] GI | | | | | | [...] Number of | | | Addenda: 0 [facility] - Endoscopy | | | Services | [...] EXTERNAL | | | | performed at [facility];[address] | | LAB | | | | [address];[place] | | | | | | [address] | | | | + + + [...] | | | POC | performed at [facility];[address] | | LAB | | | | [address];[place] | | | | | | [address] | | | | + + + [...] EXTERNAL | | | | performed at [facility];[address] | mmol/L | LAB | | | | [address];[place] | | | | | | [address] | | | | + + + [...] EXTERNAL | | | | performed at [facility];[address] | | LAB | | | | [address];[place], [place] | | | | | | [address] | | | | + + + [...] EXTERNAL | | | | performed at [facility];[address] | mmol/L | LAB | | | | [address];[place] | | | | | | [address] | | | | + + + [...] EXTERNAL | | | | performed at [facility];[address] | | LAB | | | | [address] [facility];[place], [place] | | | | | | [address] | | | | + + + [...] | | | Patient | performed at [facility] | | LAB | | | | [address];[place] | | | | | | [address] | | | | + + + [...] | | | | | performed at [facility];[address] | | | | | | [facility];[place], [place] | | | | | | [address] | | | | + + + [...] | | | Basophils | performed at [facility];[address] | K/uL | LAB | | | | [address];[place], [place] | | | | | | [address] | | | | + + + [...] EXTERNAL | | | | performed at [facility], [address] | uIU/mL | LAB | | | | [address], | | | | | | [place] [address] | | | | + + + [...] EXTERNAL | | | | performed at [facility], [address] | | LAB | | | | [address], | | | | | | [place] [address] | | | | + + + [...] | | | | | | MDRD [facility] traceable | | | | | | equation.Testing | | | | | | performed at [facility], [address] | | | | | | [facility], | | | | | | [place] [address] | | | | + + [...] | | | POC | performed at [facility];[address] | | LAB | | | | [address];[place], [place] | | | | | | [address] | | | | + + + [...] | | | POC | performed at [facility];[address] | | LAB | | | | [address];[place], [place] | | | | | | [address] | | | | + + + [...] EXTERNAL | | | | performed at [facility];[address] | mmol/L | LAB | | | | [address];[place], [place] | | | | | | [address] | | | | + + + [...] EXTERNAL | | | | performed at [facility];[address] | | LAB | | | | [address];[place] | | | | | | [address] | | | | + + + [...] | | | | | ONLY, -COMPUTER (816), | | | | | | supervising film or videotape editor Fabiana Morrison | | | | | | (79) on 08/26/2018 | | | | | | 4:05:38 AM | | | | + + + + + + + + | Specimen | + + | | + + + + + | Narrative | Performed At | + + + | [facility] environment | EXTERNAL LAB | + [...] + + + | BB BAND | [id number] | | EXTERNAL | | | | performed at [facility];[address] | | LAB | | | | [address];[place] | | | | | | [address] | | | | + + + [...] EXTERNAL | | | | performed at [facility];[address] | | LAB | | | | [address];[place] | | | | | | [address] | | | | + + + [...] at | | | | | | [facility];[address] [place] [address] | | | | | | [facility];[place] [address] | | | | + + + [...] EXTERNAL | | | | performed at [facility];[address] | | LAB | | | | [address];[place], [place] | | | | | | [address] | | | | + + + [...] | | | Alcohol | performed at [facility];[address] | | LAB | | | | [address];[place], [place] | | | | | | [address] | | | | + + + [...]
--- OUTSIDE RECORDS SUMMARY | ~2020-01-12 | XMS | Encounter Summary ---
Demographics + + + | Address | [address] | | | [place] [address] | + + + | Home Phone [...] Author + + + | Author | [facility] | | | and [place] | + + + | Organization | [facility] | | | and [place] | + + + | Address | Unknown | + + + | Phone | Unavailable | + + + Support + + + + + | Name | Relationship | Address | Phone | + + + + + | Joanne Pham | ECON | [address] | | | | | [address] | | | | | [address] | | + + + + + | Viktor Son | EDDIE | Unknown | | + + + + + | Edd Gill | ECON | Unknown | | + + + + + | Conner Barber | ECON | Unknown | | + + + + + Care Team Providers + +------+ + | Care Devulcanizer Head Name | Role | Phone | + [...] + + | 05/03/ | Hospital | [facility] | Geovanny Rock, | Alcohol withdrawal | | 2018 - | Encounter | [facility] | [address] | seizure with | | | | [address] | [place] | delirium (HCC) | | 05/12/ | | [place] [address] | [id number] | (Primary Dx); | | 2017 | | [phone] | | Hypomagnesemia; | | | | | Hossein Givens MD | 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 HTN - on [...] Start: 05/13/2017 Unchanged Medications Details DAILY MULTIPLE VITAMINS/HAND PACKER/PACKAGER Tabs Take 1 tablet by mouth Daily. [...] 5-7 days. Need Outpatient alcohol treatment from [facility] Diet: Low salt diet Activity: As tolerated Code Status/Advance Directive (Pertinent discussions/declarations): Full Code Time spent on Discharge and Coordination of post-hospital care: >30 minutes Electronically signed by: Sandy Valle, 05/12/2017 11:59 [facility] documented in this en counter Discharge Instructions Instructions Sandy Valle MD - 05/12/20171. Take all medications as instructed. 2. Lasix 20mg PO daily and aldactone 25 mg PO daily was added this admission. 3. Take lactulose and make sure you have 2-3 bowel movements everyday. 4. Please stop drinking alcohol. 5. Need Outpatient alcohol treatment from [facility] 6. Please make sure to follow up with PCP in 5-7 days. Please have repeat BMP/Mg prior to o ffice visit. AttachmentsThe following attachments cannot be sent through Care Everywhere.ALCOHOL WITHDRA WALAlcohol Withdrawal Seizure (Maltese)documented in this encounter Medications at Time of [...] | | | | | | | VITAMINS/HAND PACKER/PACKAGER) TABS | | | | | | [...] MD - 05/11/2017 3:34 PM PST . Located within [facility] PMG Hospitalist Progress Note Shaila [...] MVT - Need Outpatient alcohol treatment from [facility] D& A program 2. HTN - on [...] as outlined above. Sandy Valle 05/11/2017 15:34 [facility] Sandy Christian MD - 05/10/2017 12:45 PM PST Located within [facility] PMG Hospitalist Progress Note Shaila [...] MVT - Need Outpatient alcohol treatment from [facility] D& A program 2. HTN - on [...] as outlined above. Sandy Valle 05/10/2017 12:45 [facility] Sandy Christian MD - 05/09/2017 5:19 PM PST Located within [facility] PMG Hospitalist Progress Note Shaila [...] 05/08 am. - Outpatient alcohol treatment from [facility] 2. HTN - on [...] as outlined above. Sandy Valle 05/09/2017 17:19 [facility] Sandy Christian MD - 05/08/2017 8:16 PM PST Located within [facility] PMG Hospitalist Progress Note Shaila [...] as outlined above. Sandy Valle 05/08/2017 20:16 [facility] Grant Mayfield MD - 05/07/2017 7:06 PM PST Located within [facility] PMG Hospitalist Progress Note Shaila [...] as outlined above. Grant Lomas 05/07/2017 19:06 [facility] Portions of this chart may have been created with eMeter voice recognition software. Occasi onal wrong-word or [...] strength, and direction X Pharmacy list names: [facility] pharmacy X Outside Information X [...] performed and electronically signed by Neisha Salinas, Extension Service Supervisor 12:21 Renetta Car 05/07/2017 13:53 Grant Mayfield MD - 05/07/2017 9:59 AM PST Located within [facility] PMG Hospitalist Progress Note Shaila [...] as outlined above. Grant Lomas 05/07/2017 9:59 [facility] Portions of this chart may have been created with eMeter voice recognition software. Occasi onal wrong-word or sound-alike substitutions may have occurred due to the inherent gallardo itations of voice recognition software. Please read the chart carefully and recognize, using context, where these substitutions have occurred arker, Grant Pardo MD - 0 05/06/2017 9:57 AM PST Located within [facility] PMG Hospitalist Progress Note Shaila [...] as outlined above. Grant Lomas 05/06/2017 9:57 [facility] Portions of this chart may have been created with eMeter voice recognition software. Occasi onal wrong-word or sound-alike substitutions may have occurred due to the inherent gallardo itations of voice recognition software. Please read the chart carefully and recognize, using context, where these substitutions have occurred Grant Mayfield MD - 0 05/05/2017 8:22 AM PST Located within [facility] PMG Hospitalist Progress Note Shaila [...] and back the rowan tance of the ARTS MANAGER. She has no ocular motor findings and [...] as outlined above. Grant Lomas 05/05/2017 8:24 [facility] Portions of this chart may have been created with eMeter voice recognition software. Occasi onal wrong-word or sound-alike substitutions may have occurred due to the inherent gallardo itations of voice recognition software. Please read the chart carefully and recognize, using context, where these substitutions have occurred arker, Grant Pardo MD - 0 05/04/2017 6:18 PM PST Located within [facility] PMG Hospitalist Progress Note Shaila [...] as outlined above. Grant Lomas 05/04/2017 18:18 [facility] Portions of this chart may have been created with eMeter voice recognition software. Occasi onal wrong-word or sound-alike substitutions may have occurred due to the inherent gallardo itations of voice recognition software. Please read the chart carefully and recognize, using context, where these substitutions have occurred documented in this enc ounter H&P Notes Hossein Givens MD - 05/03/2017 10:27 PM PST [facility] H[facility]YSICAL Pt. Name/Age/: [...] signed by: Hossein Givens MD 05/03/2017 22:27 Located within [facility] documented in this enc [facility] ED Notes Geovanny Rock MD - [...] at 1130 this morning and went to [facility] emergency department in [facility] where she lives. She is accompanied by [...] then decided to drive her up to [place] for further evaluation. Patient has had some [...] Bilateral external ears normal, Oral mucosa moist, lei seller ior pharynx no exudates, Nose normal. Neck-supple, [...] has alcohol related seizures. Had one in [place] this a m and was taken to [...] to have the new scripts faxed to [place] [facility] which was done. Faxed the lab order script and new RX scripts plus d/c summary to [facility], f# , as well since she [...] will be followed up by Ilana, from [facility], who is working on her OP [...] Therapy Discharge Recommendations are: Recommended discharge disposition: group home facility, home with assist, community-b page hospitald residential facility (CBRF) Post discharge occupational [...] room w/o device. UB Dressing, Level of Krebs: modified independent LB Dressing, Level of Krebs: modified independent Groomed in standing c supervision and set up. Grooming, Level of Krebs: modified independent Assistive Device: none Grooming Assess/Train, [...] bed rails Supine to Sit, Level of Krebs: independent Sit to Supine, Level of Krebs: supervised Safety Issues: decreased use of arms for pushing/pulling Impairments: strength decreased, impaired balance Transfers Mod I in room. Would benefit from supervision in the hallways d/t unsteadiness. Ambulated 220 ft w/o device, unsteadiness to R but no LOB. Intermittent use of handrail to steady. Sit-Stand, Level of Krebs: modified independent Stand-Sit, Level of Krebs: modified independent Ldu-Dosao-Mjr, Assistive Device: none Safety Issues: balance decreased [...] PM PSTPlan of Care - Joseph See, OVEN BUILDER - 05/10/2017 11:13 AM PSTProblem: Pat ient [...] Therapy Discharge Recommendations are: Recommended discharge disposition: group home facility, home with assist, community-b ased residential [...] bed rails Supine to Sit, Level of Krebs: supervised Sit to Supine, Level of Krebs: supervised Safety Issues: decreased use of arms for pushing/pulling Impairments: strength decreased Transfers Sit-Stand, Level of Krebs: stand by assist Stand-Sit, Level of Krebs: stand by assist Skc-Pbqap-Dhk, Assistive Device: none (Hand-held assist) Safety Issues: [...] to impaired balance and weakness Level of Krebs: minimal assist (75% patient effort) Assistive Device: (PIPE COREMAKER, no AD as pt with mild confusion and AD likely more of a tripping h azard at this time.) Distance (feet): 250 feet x 2 Gait Pattern Analysis: 2-point gait Safety Issues: balance decreased during turns, sequencing ability decreased, loses balance backward Transfers CGA for safety due to imbalance and weakness Sit-Stand, Level of Krebs: contact guard assist Stand-Sit, Level of Krebs: contact guard assist Pjk-Dhady-Uah, Assistive Device: none (FRANCISCA this session) Safety Issues: balance decreased during turns, loses balance backward Impairments: pain, strength decreased Bed Mobility Assistive Device: bed rails Scoot/Bridge, Level of Krebs: stand by assist Supine to Sit, Level of Krebs: supervised Sit to Supine, Level of Krebs: supervised Safety Issues: decreased use of arms [...] STG Review Date 05/11/17 at 05/09/2017 1013 Ukyyap-Hhl-Bbwsfg Goal Flowsheet Row Most Recent Value STG Status new at 05/09/2017 1013 STG Krebs Level modified independent at 05/09/2017 1013 STG Assistive Device none at 05/09/2017 1013 Irm-Oitep-Bmm Goal Flowsheet Row Most Recent Value STG Status new at 05/09/2017 1013 STG Krebs Level modified independent at 05/09/2017 1013 STG Assistive Device 2 wheeled walker (FWW) at 05/09/2017 1013 Gait Goal Flowsheet Row Most Recent Value STG Status new at 05/09/2017 1013 STG Krebs Level modified independent at 05/09/2017 1013 STG [...] Therapy Discharge Recommendations are: Recommended discharge disposition: group home facility Post discharge occupational therapy recommendation: ongoing [...] supervision and set up. Grooming, Level of Krebs: supervised, set up required Assistive Device: none Grooming Assess/Train, Position: standing Grooming Assess/Train, Impairments: strength decreased Cognitive Slow to respond but appropriate. Bed Mobility Assistive Device: bed rails Supine to Sit, Level of Krebs: supervised Sit to Supine, Level of Krebs: supervised Safety Issues: decreased use of arms for pushing/pulling Impairments: strength decreased Transfers Sit-Stand, Level of Krebs: supervised Stand-Sit, Level of Krebs: supervised Ynh-Ruxor-Vlf, Assistive Device: none Impairments: strength decreased OT [...] - 05/08/2017 2:24 PM PSTDischarge Planning: This DRUM SANDER OFFBEARER spoke with Shaila and her significant other Edd at her bedside regarding discharge plans. Shaila reports she needs to have alcohol treatment. She would like to pursue outpatient treat ment and stay close to Ilana Lamas ([phone]) from [facility]. This narrative writer explained to Shaila that Ilana is [...] delirium (HCC) [F10.231]. Spiritual Evaluation: Patient is Uatsdin. Patient desired prayer. Spiritual Intervention: Listened to patient and her concerns, had prayer with the patient. Pastoral presence pr ovided. Spiritual Outcomes: Patient and her S.O. Appreciated the lumber planer's visit. Spiritual Goals / Follow-up: Will see the patient as requested. If there are any other spiritual care issues that arise, please contact lumber planer. lan of Care - Erika Willis RN - 05/07/2017 2:24 PM PSTProblem: Discharge Planning Goal: Patient will be discharged in a safe manner Outcome: Unchanged I called the [facility] Drug and Alcohol Department and left a message for Shaila Palomino's D& A Counselor, requesting a return call and 1018. I then called [facility] s ([phone]) and left a message for Skip requesting a return call at 1020. I called Skip back at 1419 and visited with him regarding this patient's desire to go to an [facility] Rehab program. He said that he will make some phone calls and call me back shortly. El ectronically signed by: Erika Willis RN 05/07/2017 14:24 Skip called me right back at 1430 to let me know that he had spoken to Georgette at [facility] and passed on the need for an [facility] D[facility]A program for this patient. He said [...] received a voice mail from Ilana Lamas ([phone]) from [facility] D&A program angelina pardo I was on the phone with another patient's family member. She stated that Shaila has had juice y poor participation in their outpatient program and [facility]. She said that Shaila's home environment is not a heal thy one regarding alcohol either. She said they had sent her to [place] recently to a IP miguelina casiano as [...] have also sent a referra l to [place], with Sahila's permission, as well. I spoke to Amena at [place] and she said that the soonest she [...] Alcohol withdrawal seizure with delirium (HCC) [F10.231]. Corporate Ethics Officer visit was part of routine rounding. Spiritual Evaluation: Patient was sleeping when lumber planer arrived. Spiritual Interventions: Solar Manager left spiritual care note card. Spiritual Outcomes: [...] having visual hallucinations. Sitter at bedside. lan [facility] - Siena King LICSW - 05/05/2017 [...] 956 for oversedation. VSS P [facility]Plan [facility] Rebecca Napier RN - 05/05/2017 8:12 [...] one-one distraction. Was able to go to [facility] early in shift, bu t has been incontinent this am. [facility] No [facility] activity. documented in [...] mL/min/1.73m2 | [facility] | | | [place] | RATE,ESTIMATED | | MEDICAL | | | | mL/min/1.21g8Bdrw than | | CENTER - | | [...] [address] | [place] | [phone] | | [facility] | | [address] | | | - LABORATORY | | [...] [address] | [place] | [phone] | | [facility] | | [address] | | | - LABORATORY | | [...] | 0.60 | 0.60 - 1.30 | [facility] | | | | | mg/dL | [facility] | | | | | | MEDICAL | | | | | | CENTER - | | | | | | LABORATORY | | + + + + + + | eGFR, | >60Comment: GLOMERULAR | >=60 | [facility] | | | non- | FILTRATION | mL/min/1.73m2 | [facility] | | | [place] | RATE,ESTIMATED | | MEDICAL | | | | mL/min/1.90s5Dqyn than | | CENTER - | | [...] + | [facility] [facility] | [address] | [place] | [phone] | | [facility] | | [address] | | | - LABORATORY | | [...] [address] | [place] | [phone] | | [facility] | | [address] | | | - LABORATORY | | [...] | 0.76 | 0.60 - 1.30 | [facility] | | | | | mg/dL | [facility] | | | | | | MEDICAL | | | | | | CENTER - | | | | | | LABORATORY | | + + + + + + | eGFR, | >60Comment: GLOMERULAR | >=60 | [facility] | | | non- | FILTRATION | mL/min/1.73m2 | [facility] | | | [place] | RATE,ESTIMATED | | MEDICAL | | | | mL/min/1.63o3Tesn than | | CENTER - | | [...] | | | | | mg/dL | [facility] | | | | [...] [address] | [place] | [phone] | | [facility] | | [address] | | | - LABORATORY | | [...] | | | | | | [facility] | | | | | [...] + | [facility] | [address] | [place] | [phone] | | [facility] | | [address] | | | - LABORATORY | | [...] [address] | [place] | [phone] | | [facility] | | [address] | | | - LABORATORY | | [...] | | | | | mg/dL | [facility] | | | | | | MEDICAL | | | | | | CENTER - | | | | | | LABORATORY | | + + + + + + | eGFR, | >60Comment: GLOMERULAR | >=60 | [facility] | | | non- | FILTRATION | mL/min/1.73m2 | [facility] | | | [place] | RATE,ESTIMATED | | MEDICAL | | | | mL/min/1.84g8Nkwz than | | CENTER - | | [...] | | | | | mg/dL | [facility] | | | | [...] [address] | [place] | [phone] | | [facility] | | [address] | | | - LABORATORY | | [...] + | [facility] | [address] | [place] | [phone] | | [facility] | | [address] | | | - LABORATORY | | [...] | mL/min/1.73m2 | [facility] | | | [place] | RATE,ESTIMATED | | MEDICAL | | | | mL/min/1.07t0Qpep than | | CENTER - | | [...] [address] | [place] | [phone] | | [facility] | | [address] | | | - LABORATORY | | [...] + | [facility] [facility] | [address] | [place], [place] | [phone] | | [facility] | | [address] | | | - LABORATORY | | [...] + | [facility] | [address] | [place] | [phone] | | [facility] | | [address] | | | - LABORATORY | | [...] + | [facility] | [address] | [place], [place] | [phone] | | [facility] | | [address] | | | - LABORATORY | | [...] [address] | [place] | [phone] | | [facility] | | [address] | | | - LABORATORY | | [...] + | [facility] | [address] | [place], [place] | [phone] | | [facility] | | [address] | | | - LABORATORY | | [...] [address] | [place] | [phone] | | [facility] | | [address] | | | - LABORATORY | | [...] mL/min/1.73m2 | [facility] | | | [place] | RATE,ESTIMATED | | MEDICAL | | | | mL/min/1.21c9Degh than | | CENTER - | | [...] [address] | [place] | [phone] | | [facility] | | [address] | | | - LABORATORY | | [...] [address] | [place] | [phone] | | [facility] | | [address] | | | - LABORATORY | | [...] [address] | [place] | [phone] | | [facility] | | [address] | | | - LABORATORY | | [...] [address] | [place] | [phone] | | [facility] | | [address] | | | - LABORATORY | | [...] mL/min/1.73m2 | [facility] | | | [place] | RATE,ESTIMATED | | MEDICAL | | | | mL/min/1.34j3Htql than | | CENTER - | | [...] | | | | | mg/dL | [facility] | | | | | | MEDICAL | | | | | | CENTER - | | | | | | LABORATORY | | + + + + + + | Albumin | 1.7 (L) | 3.2 - 5.0 g/dL | [facility] | | | | | | [facility] | | | | [...] [address] | [place] | [phone] | | [facility] | | [address] | | | - LABORATORY | | [...] [address] | [place] | [phone] | | [facility] | | [address] | | | - LABORATORY | | [...] [address] | [place] | [phone] | | [facility] | | [address] | | | - LABORATORY | | [...] [address] | [place] | [phone] | | [facility] | | [address] | | | - LABORATORY | | [...] [address] | [place] | [phone] | | [facility] | | [address] | | | - LABORATORY | | [...] (L) | 7 - 18 mg/dL | [facility] | | | | | | [facility] | | | | | | MEDICAL | | | | | | CENTER - | | | | | | LABORATORY | | + + + + + + | Creatinine | 0.39 (L) | 0.60 - 1.30 | [facility] | | | | | mg/dL | [facility] | | | | | | MEDICAL | | | | | | CENTER - | | | | | | LABORATORY | | + + + + + + | eGFR, | >60Comment: GLOMERULAR | >=60 | [facility] | | | non- | FILTRATION | mL/min/1.73m2 | [facility] | | | [place] | RATE,ESTIMATED | | MEDICAL | | | | mL/min/1.51a9Nisf than | | CENTER - | | [...] [address] | [place] | [phone] | | [facility] | | [address] | | | - LABORATORY | | [...] [address] | [place] | [phone] | | [facility] | | [address] | | | - LABORATORY | | [...] + | [facility] | [address] | [place] | [phone] | | [facility] | | [address] | | | - LABORATORY | | [...] [address] | [place] | [phone] | | [facility] | | [address] | | | - LABORATORY | | [...] (L) | 7 - 18 mg/dL | [facility] | | | | | | [facility] | | | | | | MEDICAL | | | | | | CENTER - | | | | | | LABORATORY | | + + + + + + | Creatinine | 0.43 (L) | 0.60 - 1.30 | [facility] [...] mL/min/1.73m2 | [facility] | | | [place] | RATE,ESTIMATED | | MEDICAL | | | | mL/min/1.00h7Ecxy than | | CENTER - | | [...] + | [facility] | [address] | [place] | [phone] | | [facility] | | [address] | | | - LABORATORY | | [...] [address] | [place] | [phone] | | [facility] | | [address] | | | - LABORATORY | | [...] [address] | [place] | [phone] | | [facility] | | [address] | | | - LABORATORY | | [...] + | [facility] | [address] | [place] | [phone] | | [facility] | | [address] | | | - LABORATORY | | [...] | | | | mmol/L | [facility] | | | | | [...] | non- | FILTRATION | mL/min/1.73m2 | [facility] | | | [place] | RATE,ESTIMATED | | MEDICAL | | | | mL/min/1.25y7Eggo than | | CENTER - | | [...] | | | | | mg/dL | [facility] | | | | | | MEDICAL | | | | | | CENTER - | | | | | | LABORATORY | | + + + + + + | Albumin | 2.1 (L) | 3.2 - 5.0 g/dL | [facility] | | | | | | [facility] | | | | [...] + | [facility] | [address] | [place] | [phone] | | [facility] | | [address] | | | - LABORATORY | | [...] ST. | [address] | [place], [place] | [phone] | | [facility] | | [address] | | | - LABORATORY | | [...] PST | | | | | on [facility] 05/10/17 at 1145 | | | [...] | | | DAILY, First dose on [facility] 05/10/17 | | | | | [...] Symptoms, CIWA PROTOCOL, | | | Starting [facility] 05/10/17 at 1126, CIWA | | [...] | | | | First dose on [facility] 05/10/17 at 0900 | | AM [...] PST | | | | | ONCE, [facility] 05/03/17 at 2215, For 1 | [...] PST | | | | | ONCE, [facility] 05/04/17 at 1830, For 1 | | [...] PST | | | | | ONCE, [facility] 05/09/17 at 1330, For 1 | | [...] PST | | | | | Starting [facility] 05/03/17 at 2119, For | | [...] | | | | First dose on [facility] 05/10/17 at 1315, | | AM [...] | | | | | Intravenous, ONCE, [facility] 05/03/17 at | | | | [...] PST | | | | | ONCE, [facility] 05/03/17 at 2125, For 1 | [...] | | | | First dose on [facility] 05/10/17 at | | AM PST [...]
--- OUTSIDE RECORDS SUMMARY | ~2020-01-12 | XMS | Encounter Summary ---
Demographics + + + | Address | [address] | | | [place] [address] | + + + | Home Phone [...] + | Joanne Pham | ECON | [address] | | | | | [place] | | | | | [address] | | + + + + + | Viktor Son | EDDIE | Unknown | | + + + + + | Edd Gill | ECON | Unknown | | + + + + + | Conner Barber | ECON | Unknown | | + + + + + Care Team Providers + +------+ + | Care Rn Night Name | Role | Phone | + [...] | | | [address] | [place] [address] | | | | | [place], [place] | [phone] | | | | | [phone] | | | | | | [phone] | | | +--------+ + + + [...] 11:19 AM PDTCalled [facility] at [phone]. Spoke to Rox, she was able to [...] give me an updated # for them [phone]. I will call to coordinate apt. E lectronically signed by Princess Parsons at 08/28/2019 10:31 AM PDTTelephone Encounter - Lavern Varela - 08/27/2019 1:52 PM PDTMichael, is calling again for Referral and would like a call back. Additional Call Details: Michael, from [facility], Calling to schedule from Referral Can mandi jacobson reached at [phone] elephone Encounter - Julia Causey - 08/27/2019 9:40 AM PDTMichael, is returning call for Referral and would like a call back. Additional Call Details: Provided information on the phone number for where patient is loc ated. Correct phone number [phone] elephone Encounter - Deborah Rivero - 08/22/2019 11:53 AM PDTAttempted to call number provided by tahira Rodriguez ed following message *we are sorry you have reached a number that has been disconnected or i s no longer in service* elephone Encounter - Katina Manriquez - 08/20/2019 2:14 PM PDTMicabby- [facility], is madelin ng again for Referral and would like a call back. Additional Call Details: Caller states patient is currently in an assisted living home [facility] in [place] and can assist with transportation of patient. Can call to schedule at [phone]. States anyone who answers can assist. elephone Encounter - Deborah Rivero - 08/13/2019 3:12 PM PDTReturned Michael's call, she stated patient had a ne w number to call [phone]. She stated patient still needed to be [...] She then stated she might have a unit supervisor that might assist her with this and [...] transfer the call to a miguelina mueller [facility] support center director was caller made aware that if at any time she feels it is an emergency they sh ould call 911 or go to the nearest emergency room? not applicable documented in this encounter Plan of Treatment Not on filedocumented as of this encounter Visit Diagnoses Not on filedocumented in this encounter"
--- OUTSIDE RECORDS SUMMARY | ~2020-01-12 | XMS | Encounter Summary ---
Demographics + + + | Address | [address] | | | [place] [address] | + + + | Home Phone [...] + | Joanne Pham | ECON | [address] | | | | | [place] | | | | | [address] | | + + + + + | Viktor Son | EDDIE | Unknown | | + + + + + | Edd Gill | ECON | Unknown | | + + + + + | Conner Barber | ECON | Unknown | | + + + + + Care Team Providers + +------+ + | Care Channel Machine Operator Name | Role | Phone [...] + + | 09/08/ | Telephone | [facility] | Mitchell Stewart | Other (proactive | | 2020 | | GASTROENTEROLOGY | MD Conor [address] | screening) | | | | [address] | [place], [place] | | | | | [place], [place] | [address] | | | | | [address] | | | | | | [phone] | | | +--------+ + + + [...]
--- NOTE | 2020-01-12 13:14 | EKG ---
[facility] [address] [place] [address] Signed Sinus tachycardia Possible Anterior infarct , age undetermined Abnormal ECG When compared with ECG of 27-SEP-2019 13:10, Vent. rate has increased BY 43 BPM Borderline criteria for Anterior infarct are now present T wave inversion now evident in Anterior leads Confirmed by LONNIE MOORE MD ([id number]) on 01/12/2020 1:14:37 PM Electronically Signed By: LONNIE MOORE MD 01/12/20 1314 PATIENT NAME: LONDON BERRY Electrocardiogram DATE OF : 72 PHYSICIAN: LONNIE MOORE MD REPORT #: [id number] REPORT IS CONFIDENTIAL AND NOT TO BE RELEASED WITHOUT AUTHORIZATION
--- NOTE | 2020-01-12 15:25 | NUR ---
49 YEAR OLD FEMALE PATIENT ADMITTED TO CCU FROM ED VIA STRETCHER UNDER DR MOORE WITH DX OF R/O COVID, N/V, ETOH ABUSE, UTI. UPON ADMIT PATIENT IS AWAKE, SLOW TO RESPOND. C/O SORE THROAT AND COUGH FOR COUPLE ONE WEEK. HX OF SEIZURES,HTN,ANEMIA,ACITIES,LIVER DISEASE.ETOH LEVEL 156. PARACENTESIS DONE IN ED, 2 LITERS OF FLUID TAKEN OFF.
--- NOTE | 2020-01-12 18:36 | NUR ---
DR. MOORE UPDATE ONN PATIENT. NO FUTHER ORDERS AT THIS TIME. TEMP-101.2
--- NOTE | 2020-01-12 19:00 | NUR ---
TO COMMODE TO EXPELL SM GREEN LIQ STOOL. UNSTABLE ON FEET. BC DRAWN.
--- NOTE | 2020-01-12 19:45 | NUR ---
REPORT TO NEXT SHIFT.
--- NOTE | 2020-01-12 21:05 | NUR ---
IN ROOM FOR MEDICATION ADMINISTRATION AND ASSESSMENT. PT HEART RATE IN THE 130S AT REST, UP INTO THE 150S WITH EXERTION. PT BLOOD PRESSURE REMAINS ELEVATED AT 163/109. PATIENT HAS TEMPERATURE OF 101.1, STATES SHE FEELS WARM. CHEEKS ARE FLUSHED. BLADDER SCAN REVEAL 340 MLS IN BLADDER. PT DENIES NAUSEA OR PAIN. NO TREMORS NOTED. CIWA OF 6. IV MEDICATIONS INFUSING (SEE EMAR). WILL CONTINUE TO MONITOR
--- NOTE | 2020-01-12 21:48 | NUR ---
PT COMPLAINS OF NAUSEA AND MILD HEADACHE. CIWA OF 10. GIVEN 1 MG OF IV ATIVAN AT THIS TIME.
--- NOTE | 2020-01-12 22:00 | NUR ---
PT HEART RATE SUSTAINING NOW BETWEEN 130-140 AT REST. BLOOD PRESSURES REMAIN ELEVATED. PT TEMPERATURE 101.1. CALLED DR MOORE AND UPDATED ON CHANGES IN PATIENT CONDITION. VERBAL ORDER TO INCREASE PRN ATIVAN TO 2 MG IV (SEE EMAR). WILL CONTINUE TO CLOSELY MONITOR
--- NOTE | 2020-01-12 22:46 | NUR ---
PT WAS INCONTIENT OF STOOL. PERICARE PROVIDED. PRN ATIVAN ADMINISTERED FOR A CIWA OF 11. IV POTASSIUM INFUSING. WILL CONTINUE TO MONITOR.
--- NOTE | 2020-01-12 23:20 | NUR ---
PT GIVEN 2 MG PRN IV ATIVAN FOR CIWA OF 11.
--- NOTE | 2020-01-13 01:30 | NUR ---
MULTIPLE ATTEMPTS BY 2 RNS TO START A SECOND IV. UNSUCCESSFUL. TOLERATED BY PT. PT HAD INCONTINENT EPISODE. BED CHANGE AT THIS TIME.
--- NOTE | 2020-01-13 03:30 | NUR ---
ASSESSMENT COMPLETED. PT GIVEN 2 MG OF IV ATIVAN FOR CIWA OF 10. INCONTINENT CARE PROVIDED. CALL LIGHT WITHIN REACH. NO FURTHER NEEDS AT THIS TIME.
--- NOTE | 2020-01-13 04:30 | NUR ---
IN ROOM TO ASSIST PATIENT TO BEDSIDE COMMODE. PT ABLE TO STAND WITH ONE PERSON ASSIST, BUT IS VERY WEAK. PT VOIDED 250 MLS OF STIVEN COLORED URINE. BACK IN BED. ATTEMPTED TO DRAW AM LABS. UNSUCCESSUL AFTER THREE ATTEMPTS. PT PROVIDED WARM BLANKETS, CALL LIGHT WITHIN REACH. CIWA OF 8 AT THIS TIME
--- NOTE | 2020-01-13 05:34 | NUR ---
AT THE START OF SHIFT, PATIENT WAS HYPERTENSIVE AND TACHYCARDIC WITH A HEART RATES SUSTAINED IN THE 130S. PT HAS HAD FEVERS THROUGHOUT THE NIGHT, THE HIGHEST BEING 101.1 CIWA SCORE HAS BEEN BETWEEN 8-10 CONSISTENTLY THROUGH THE NIGHT. 2 AM SCHEDULED DOSE OF ATIVAN HELD WHILE PT WAS SLEEPING SOUNDLY. HEART RATE TRENDED DOWN INTO THE 110S AFTER GIVEN PRN CLONIDINE, BUT AT THIS TIME IS TRENDING BACK UP. PT REMAINS HYPERTENSIVE.
--- NOTE | 2020-01-13 07:30 | NUR ---
REPORT RECIEVED. PATIENT IS RESTFUL IN BED.
--- NOTE | 2020-01-13 08:00 | NUR ---
ASSESSMENT DONE. IS SLOW TO RESPOND. DENEIS PAIN. C/O SLIGHT NAUSEA. REMAINS ON CLEAR LIQUIDS. IVF HUNG ORDERED. ROUTINE MEDS GIVEN.
--- NOTE | 2020-01-13 10:00 | NUR ---
UP TO COMMODE TO VOID AND EXPELL SMALL LIQUID STOOL. PO ATIVAN GIVEN ORDERED. IVF CONTINUE TO INFUSE. HAS RECIEVED K RIDER AND RIDER TODAY.
--- NOTE | 2020-01-13 10:10 | NUR ---
WHEN ON COMMODE, BED LINEN CHANGED AND SPONGE BATH GIVEN.
--- NOTE | 2020-01-13 10:20 | NUR ---
MED REC COMPLETE
--- NOTE | 2020-01-13 10:30 | NUR ---
PATIENT PICKING AT AIR, SAYING SHE IS GETTING THE GARBAGE. NOT TREATMENT FOR ETOH WITHDRAWAL GIVEN AT THIS TIME.
--- NOTE | 2020-01-13 12:00 | NUR ---
ASSESSMENT DONE. NO CHANGES. DEBRA SANDOVAL IN ON TO PLACE MIDLINE.
--- NOTE | 2020-01-13 12:35 | NUR ---
ATTEMPTED TO PLACE POWERGLIDE MIDLINE IN PATIENT'S LEFT UPPER ARM, BRACHIAL VEIN BUT WAS UNSUCCESSFUL. ABLE TO ACCESS INTO VEIN, BUT UNABLE TO THREAD INTO GUIDEWIRE. PT TOLERATED FAIR, AND WAS MOVING A LOT DURING PROCEDURE SHE WAS NOT COMPLETELY ABLE TO UNDERSTAND WHAT WAS GOING ON OR FOLLOW COMMANDS DUE TO ETOH W/D AND HALLUCINATIONS. NEW IV STARTED IN RIGHT INNER FOREARM BY JAIME DELCID. PT HAS A LARGE BRACHIAL VEIN IN RIGHT ARM THAT WOULD A SUITABLE CANDIDATE FOR POTENTIAL MIDLINE/PICC PLACEMENT. CONTINUE TO MONITOR.
--- NOTE | 2020-01-13 12:40 | NUR ---
IV SITE PLACE TO RIGHT INNER FA, MIDLINE NOT PLACED.
--- NOTE | 2020-01-13 13:00 | NUR ---
INC OF STOOL AND URINE. ATTENDS CHANGED WHILE IN BED. MILD TREMORS NOTED, REMAINS SLOW TO RESPONE TO COMMANDS/REQUESTS. CONTINUES TO TAKE SIPS OF FLUIDS. TALKING ABOUT GOING HOME, HAS BEEN ATTEMPTING TO GET OOB OCC. CAN BE REDIRECTED. DOES GET VERY FRUSTRATED AT TIMES.
--- NOTE | 2020-01-13 14:04 | PATH ---
[facility] [address], [place] [address] Signed ORDERING PHYSICIAN: Jono Caceres MD PATIENT NAME: LONDON BERRYE GENDER: Romulo : 1970 Prior History: No cases found. SPECIMEN(S): MOLECULAR PATHOLOGY RESULTS: SARS-CoV-2 Not Detected ADDITIONAL NOTES.: The [place] Fusion SARS-CoV-2 Assay is a multiplex real-time PCR (RT-PCR) in vitro diagnostic test intended for the qualitative detection of RNA from SARS-CoV-2 from individuals who meet COVID-19 clinical and/or epidemiological criteria. In general, SARS-CoV-2 RNA can be detected during the acute phase of infection. Positive results indicate the presence of SARS-CoV-2 RNA. Clinical correlation with patient history and other diagnostic information is necessary to determine patient infection status. Positive results do not rule out bacterial infection or co-infection with other viruses. Negative results do not preclude SARS-CoV-2 infection and should not be used as the sole basis for patient management decisions. Negative results must be combined with other clinical observations, patient history, and epidemiological information. The [place] Fusion SARS-CoV-2 Assay is not yet approved or cleared by the [place] FDA. When there are no FDA-approved or cleared tests available, and other criteria are met, FDA can make tests available under an emergency access mechanism called an Emergency Use Authorization (EUA). The EUA for this test is supported by the Skin [employer] Instructor of Health and Human Service's (HHS's) declaration that circumstances exist to justify the emergency use of in vitro diagnostics for the detection and/or diagnosis of the virus that causes COVID-19. This EUA will remain in effect for the duration of the COVID-19 declaration justifying emergency of IVDs, unless it is terminated or revoked by FDA, after which the test may no longer be used. The [place] Fusion SARS-CoV-2 Assay is for use only under EUA PATIENT NAME: LONDON BERRY PATHOLOGY DATE OF : 72 REPORT #: [id number] PHYSICIAN: EUGENE PATHOLOGY PCP: NO PRIMARY CARE PHYSICIAN REPORT IS CONFIDENTIAL AND NOT TO BE RELEASED WITHOUT AUTHORIZATION [facility] [address] [facility] [place], [place] [address] Signed in [place] laboratories certified under the Clinical Laboratory Improvement Amendments of 1988 (CLIA) to perform high complexity tests. [facility] is certified under CLIA to perform high complexity clinical laboratory testing. PERFORMING LABORATORY.: Molecular testing was performed by [facility] [address] [place], [place] [address] [address] (Board Attendant: Thang Castaneda D.O.; CLIA#: [id number]) Diagnostician: System Interface Pathologist Electronically Signed 01/13/2020 Copies: ~ PATIENT NAME: LONDON BERRY PATHOLOGY DATE OF : 72 REPORT #: [id number] PHYSICIAN: EUGENE ALEXIS PCP: NO PRIMARY CARE PHYSICIAN REPORT IS CONFIDENTIAL AND NOT TO BE RELEASED WITHOUT AUTHORIZATION
--- NOTE | 2020-01-13 16:00 | NUR ---
OOB TO CHAIR WITH ASSIST. BED CHANGED OUT BED ALARM NOT WORKING RIGHT. ASSESSMENT DONE EARLIER.
--- NOTE | 2020-01-13 16:45 | NUR ---
REMAINS IN CHAIR. ATTEMPTING TO GET OUT OF CHAIR. PATIENT ASKING FOR A BEER. DENIES PAIN/NAUSEA. REMAINS HYPERTENSIVE TODAY. PAIENT RECIEVIGN LOPRESSOR 5 MG IV Q 6 PRN AND CLONIDINE 0.1 MG Q 8 HRS. UPDATED ON PT MENTATIONAND VITAL SIGNS.
--- NOTE | 2020-01-13 17:05 | NUR ---
LIBRUIM 25 MG PO GIVEN ORDERED. PATIENT WILL REACH OUT WITH ARMS IN ATTEMPT TO GET SOMETHING SHE IS SEEING. IVF CONTINUE TO INFUSE.
--- NOTE | 2020-01-13 17:20 | NUR ---
Spoke with Rn. States pt is confused and agitated. I will see her tomorrow.
--- NOTE | 2020-01-13 18:40 | NUR ---
attempting to get out of chair. IS VERY ANXIIOUS. NOT ABLE TO REASON WITH PATIENT. ASSISTED BACK TO BED. INC OF STOOL AND URINE. ABD IS LARGER THIS EVENING THEN COMPARED TO THIS AM.
--- NOTE | 2020-01-13 18:50 | NUR ---
ATIVAN 2 MG IV GIVEN. WILL SAY WORDS NOT DIRECTED AT ANYTHING.
--- NOTE | 2020-01-13 19:01 | NUR ---
REMAINS FRUSTRATED. ATTEMPING TO GET OOB. STAFF IN ROOM .
--- NOTE | 2020-01-13 19:28 | NUR ---
REPORT TO NEXT SHIFT. NO FUTHER CHANGES.
--- NOTE | 2020-01-13 20:08 | NUR ---
REPORT RECIEVED, CARE ASSUMED AT THIS TIME. PT DISORIENTED TO SITUATION, DATE, AND TIME. PT ATTEMPTING TO GET OUT OF BED. KICKING LEGS OVER SIDE OF BED. PT MOVED FROM ROOM 127 TO 129 AT THIS TIME TO BE WATCHED MORE CLOSELY. GIVEN 4 MG IV ATIVAN (SEE EMAR). BED ALARM ON. VISIBLE FROM NURSES STATION.
--- NOTE | 2020-01-13 20:43 | NUR ---
PT NOT TRYING TO GET OUT OF BED AT THIS TIME. ABLE TO SWALLOW PM MEDICATIONS AND TAKE IN 100 MLS OF FLUID. PT REMAINS DISORIENTED. PULLING AT BLANKETS, BUT NOT TRYING TO EXIT BED. ASSESSMENT COMPLETED. IV FLUIDS INFUSING. BED ALARM ON. PT VISIBLE FROM NURSES STATION. WILL CONTINUE TO CLOSELY MONITOR.
--- NOTE | 2020-01-13 22:36 | NUR ---
PT PULLING AT LINES, IN ROOM TO REDIRECT PT. SHE BEGAN CRYING. UNABLE TO ARTICULATE WHY. PROVIDED THERAPEUTIC COMMUNICATION. WARM BLANKETS PROVIDED. WILL CONTINUE TO MONITOR.
--- NOTE | 2020-01-14 | NUR ---
ASSESSMENT COMPLETED. PT TEARFUL. DISORIENTED TO LOCATION AND SITUATION. ATTEMPTED THERAPEUTIC COMMUNICATON AND REORIENTATION. WARM BLANKETS PROVIDED. NO FURTHER NEEDS AT THIS TIME.
--- NOTE | 2020-01-14 01:50 | NUR ---
PT RESTING WITH EYES CLOSED. BREATHING EVEN AND LABORED. HEART RATE IN TO 80S. BLOOD PRESSURE 122/81. RR=18. CALL LIGHT WITHIN REACH. BED ALARM IN PLACE. PT VISIBLE FROM NURSES STATION. NO NOTED NEEDS AT THIS TIME
--- NOTE | 2020-01-14 03:23 | NUR ---
pt trying to get out of bed at this time. States "i dont want to stay here. im going to meet natalie. 2 mg prn ativan given at this time. attempted to reorient patient. bed alarm in place. this rn remains in room with pt.
--- NOTE | 2020-01-14 03:53 | NUR ---
Assessment completed at this time. Patient remains disoriented to location and situation. Continues to get out of bed, pulling at blankets and lines. Blood pressure 188/118. given 5 mg of prn IV lopressor at this time. 2 mg iv ativan given for ciwa of 20. this rn remains at pt bedside.
--- NOTE | 2020-01-14 05:15 | NUR ---
pt resting with eyes closed for the last hour. breathing even and unlabored. rr=18. heart rate 70-80 at rest. bed alarm on. will continue to monitor
--- NOTE | 2020-01-14 07:20 | NUR ---
REPORT RECEIVED FROM JAIME BUENROSTRO. PT RESTING IN BED, EYES OPEN, RESPIRATIONES EVEN AND UNLABORED. BED RAILS UP. BED ALARM ON. PT ALLOWED TO REST.HR= 92, WITH O2 SATURATION OF 99% ON ROOM AIR. PT ALLOWED TO REST.
--- NOTE | 2020-01-14 08:00 | NUR ---
MORNING ASSESSMENT AND MEDICATION DUE. PT RESTLESS IN BED AND ATTEMPTING TO CLIMB OUT OF BED. PT HAVING MILD HALUCINATIONS STATING "WHO IS THAT IN THE WALL OVER THERE" REPEADLY. ASSESSMENT DONE. PT DISORIENTED TO EVENTS, SURROUDINGS, AND TIME/DATE. PT KNOWS HER NAME AND STATES SHE IS AT "[facility]." PT DOES NOT ANSWER QUSTIOSN ABOUT PAIN, FLACC SCORE OF 2/10. ABDOMEN CONTINUE TO BE DISTENDED. MEDICATIONS GIVEN. PT ABLE TO SWALLOW PILLS WITH SOME BURPING AND RELUCTANCE. IV ATAVAN GIVEN, PO ATAVAN HELD AT THIS TIME FOR A CIWA SCORE OF 17 (SEE MAR). PT DENIES NAUSEA WITH SIPS OF WATER FOR MEDICATIONS ADMINISTRATION. PT RESTING IN CHAIR AT THIS TIME. CALL LIGHT Secrette REACH. PT EASILY VEIWED FROM NURSES STATION.
--- NOTE | 2020-01-14 09:11 | NUR ---
SUSTAINED ELEVATED SBP AND DBP GREATER THAN 100. PRN MEDICATION GIVEN (SEE EMAR). VITALS TAKEN. PRN BLOOD PRESSURE MEDICATION GIVEN. PT RESTING IN CHAIR. PT ANXIOUS AND RESTING IN CHAIR. CIWA SCORE REMAINS AT 17. LINENS CHANGED. CALL LIGHT WITHIN REACH. PT EASILY VIEWED FROM NURSES STATION.
--- NOTE | 2020-01-14 10:05 | NUR ---
THIS RN TO ROOM TO CHECK ON PT. CIWA SCORE DECRESING, PT DRIFTS OFF TO SLEEP AT TIMES. NOW 16 WHEN AWAKEN AND INTERACTING. BLOOD PRESSURE 158/98, CONTINUING TO MONITOR. DEPENDS REMAINS DRY. PT REMAINS UP TO CHAIR. CALL LIGHT WITHIN REACH. PT EASILY VIEWED FROM NURSES STATION.
--- NOTE | 2020-01-14 10:44 | NUR ---
PT CLIMBING OUT OF CHAIR. THIS RN TO ROOM. PT AGITATED, DISORIENTED TO SELF AND PLACE AND TREMORS WORSENING. CIWA SCORE OF 21. IV LORAZAPAM GIVEN (SEE MAR). DEPENDS SOILED. 2 PERSON ASSIST TRANSFER BACK TO BED. ROSELIA CARE DONE. DEPENDS CHANGED. PT EXPRESSING INCOHERANT SENTANCES "I NEED TO MOVE, FOR MY CATERACT, THE KNEES NEXT WEEK." PT RESTING IN BED. BED RAILS UP. BED ALARM ON. PT EASILY VIEWED FROM NURSES STATION.
--- NOTE | 2020-01-14 11:30 | NUR ---
PT CRAWLING OUT OF BED. PT STATES "I NEED TO GO TO [facility]." PT DISORINTED TO PLACE "THIS [facility] AND GIVES A STRING OF NUMBERS WHEN ASKED HER NAME. CIWA SCORE OF 18. ADDITIONAL IV LORAZAPAM GIVEN. PT READJUSTED IN BED. BED ALARM ON. CALL LIGHT WITHIN REACH. BED RAILSUP. PT EASILY VIEWED FROM NURSES STATION.
--- NOTE | 2020-01-14 13:09 | NUR ---
MID DAY ASSESSMENT AND MEDICATION DUE. THIS RN TO ROOM. PT FIGITY, PT DENIES HEADACHE AND NAUSEA. MILD TREMORS NOTED. CIWA SCORE OF 13. DEPENDS SOILED WITH STOOL AND URINE INCONTINANCE. ROSELIA CARE DONE. DEPENDS CHANGED. ASSESSMENT DONE. ABDOMINAL DYSTENTION CONTINUES. PT DISORIENTED TO PLACE, TIME, DATE AND EVENTS. PT ABLE TO STATE NAME AND RECOGNIZE A FRIEND WHO COMES TO VISIT. PT POINTING STATING "I'M GOING TO [facility] FOR MY PURSE." PT REPOSITIONED IN BED. MEDICATION GIVEN. BLOOD PRESSURE REMAINS WITHIN RANGE AT THIS TIME. PT VISITING WITH ELVIN JANG. BED RAILS UP. BED ALARM ON. CALL LIGHT WITHIN REACH.
--- NOTE | 2020-01-14 14:26 | NUR ---
CHECKED ON PT, SHE HAS A VISITOR IN. WILL CHECK BACK
--- NOTE | 2020-01-14 15:02 | NUR ---
THIS RN TO ROOM TO CHECK ON PT. PT RESTINGIN BED. CIWA SCORE OF 9, PO MEDICATION GIVEN. BLOOD PRESSURE CONTINUES TO BE ELEVATED. PRN MEDIATION GIVEN FOR BP (SEE MAR) ADDITIONAL LIQUID BOWEL MOVEMENT NOTED. ROSELIA CARE DONE. DEPENDS CHANGED. LACTULOSE HELD PT HAS HAD THREE BOWEL MOVEMENTS ALREADY THIS SHIFT. PT RESTING IN BED. GEM AT BEDSIDE COMFORTING PT. WARM BLANKETS PROVIDED. BED RAILS UP. CALL LIGHT WITHIN REACH. BED ALARM ON.
--- NOTE | 2020-01-14 15:21 | NUR ---
PTS SISTER MAYNOR CALLED FOR UPDATE AND TO TALK WITH PT. PT STATES OK TO UPDATE MAYNOR. MAYNOR UPDATED AND STATES HER QUESTIONS HAVE BEEN ANSWERED. MAYNOR STATES SHE WILL CALL BACK TOMORROW WHEN THE PT IS MORE AWAKE AND ABLE TO TALK WITH HER.
--- NOTE | 2020-01-14 16:39 | NUR ---
AFTERNOON ASSESSMENT DUE. PT RESTING IN BED, GRABBING AT THINGS IN THE AIR, VERY FEW TREMORS NOTED. PT DENIES PAIN AND NAUSEA. PT DENIES HEADACHE. PT CONTINUES TO BE DISORIENTED TO ALL BUT SELF AND FRIEND WHO IS IN THE ROOM. PT FIGITY BUT DOES NOT APPEAR VERY ANXIOUS AT THIS TIME. CIWA SCORE OF 8, NO MEDICATION GIVEN AT THIS TIME. ABDOMEN DISTENDED BUT SOFT. LIQUID STOOL LEAKIGN CONTINIUALLY FROM RECTOM. ROSELIA CARE DONE, BARRIER CREAM APPLIED. DEPENDS CHANGED. PT UP TO CHAIR WITH 2 PERSON PIVOT ASSIST. LEGS AND ARMS CONTINUE TO BE VERY STIFF. PT ABLE TO ASSIT VERY LITTLE WITH CARES AND MOVEMENT. PT TAKES 2 SIPS OF WATER AND PUSHES WATER AWAY. LINENS SOILED, LINENS CHANGED. PT REMAINS UP TO CHAIR. FRIEND AT BEDSIDE. NO ADDIITONAL REQUESTS OR COMPLAINTS. CALL LIGHT WITHIN REACH. PT EASILY VEIWED FROM NURSES STATION.
--- NOTE | 2020-01-14 17:15 | NUR ---
Update from RN, pt remains confused and agitated. Will see when alert for CM assessment.
--- NOTE | 2020-01-14 17:23 | NUR ---
PTS FRIEND LEAVING FOR THE NIGHT. PT SLIGHTLY AGITATED WHILE UP TO CHAIR. PT GRASPING AT ITEMS IN THE AIR. PT FIGITY WITH BLANKETS AND CHEWING ON HER BLANKETS. CIWA SCORE OF 10, MEDICATION GIVEN. PT SOILED. ROSELIA CARE DONE. 2 PERSON ASSIST BACK TO BED. PT STATES SHE DOES NOT WANT TO BE BACK TO BED AND WAS COMFORTABLE IN THE CHAIR. 2 PERSON ASSIST BACK UP TO CHAIR. PT CONTINES TO BE AGITATED. WARM BLANKETS PROVIDED. PT RESTING IN CHAIR. CALL LIGHT WITHIN REACH. PT EASILY VEIWED FROM NURSES STATION.
--- NOTE | 2020-01-14 17:46 | NUR ---
PT HERE FOR ACUTE ALCOHOL WITHDRAWL. 1-2 PERSON ASSIST UP TO CHAIR AND BACK TO BED, HEAVY PIVOT ASSIST THIS SHIFT. PT HAS MINIMAL PO INTAKE THIS SHIFT. PRN AND SCHEDULED LORAZAPAM GIVEN FOR CIWA SCORES OF 9-21. PRN MEDICATION GIVEN FOR ELEVATED BLOOD PRESSURE. LACTULOSE GIVEN. PT HAS CONTINIOUS INCONTINANCE OF LIQUID STOOL. AFTERNOON DOSE OF LACTULOSE HELD. FRIEND HERE TO VISIT THIS SHIFT. PT DOES NOT USE CALL LIGHT. BED/CHAIR ALARM ON FOR SAFETY.
--- NOTE | 2020-01-14 18:07 | NUR ---
PT CONTINUES TO BE VERY AGITATED. PT CALLING OUT AT PEOPLE IN THE ROOM AND STATING "GET ME MY BEER!" CIWA SCORE OF 11, SEE MAR FOR MEDICATION GIVEN. SUSTAINED ELEVATED BLOOD PRESSURE, PRN MEDICATION GIVEN. WARM BLANKETS PROVIDED. PT STATES "THATS MUCH BETTER." PT REMAINS UP TO CHAIR. CALL LIGHT WITHIN REACH. PT EASILY VEIWED FROM NURSES STATION.
--- NOTE | 2020-01-14 20:00 | NUR ---
PT IS STARTING TO MOVE ABOUT. WILL DO CIWA.
--- NOTE | 2020-01-14 20:30 | NUR ---
SO FAR 2M IV ATIVAN HAVE BEEN GIVEN. WILL NEED TO GIVE MORE. PT IS ONLY ORIENTED TO SELF SO FAR. JOELLE WAS A 18 AT 2011. WILL CONTINUE TO MONITOR.
--- NOTE | 2020-01-14 22:00 | NUR ---
PT SO FAR HAS HAD 9MG OF ATIVAN. PT STILL AWAKE BUT NO CLIMBING OUT OF BED. OVERALL PT HAS BEEN COOPERATIVE. LOBES ARE CLEAR, ASCITIS STILL SEVERE, NO OTHER EDEMA NOTED. POOR APPETITE STILL PRESENT, BP AT TIMES STILL ELEVATED. WILL CONTINUE TO MONITOR.
--- NOTE | 2020-01-15 | NUR ---
PT STILL IS VERY RESTLESS AND I AM NOT ABLE TO RE-ORIENT AT TIHS TIME. V/S STABLE. WILL CONTINUE TO MONITOR. NO NEW CONCERNS WERE NOTED WITH SECOND ASSESSMENT.
--- NOTE | 2020-01-15 02:00 | NUR ---
PT AT THIS TIME IS SLEEPING. CIWA 0. WILL CONTINUE TO MONITOR.
--- NOTE | 2020-01-15 04:15 | NUR ---
CIWA NOW IS 22. PT HAD ANOTHER INCONTINENT VOID AND BM. THIRD ASSESSMENT OVERALL HAS NO CHANGES NOTED. WILL CONTINUE TO MONITOR. V/S WDL OVERALL, BP ELEVATED WHICH IS NOTHING NEW.
--- NOTE | 2020-01-15 06:37 | NUR ---
PT AT THIS TIME IS SLEEPING. BP ELEVATED, OTHER V/S ARE WDL.
--- NOTE | 2020-01-15 07:30 | NUR ---
THIS RN AND JAIME KNIGHT CARING FOR PT THIS SHIFT. REPORT RECEIVED FROM JAIME GILLILAND. PT RESTING IN BED WITH EYES CLOSED. BED RAILS UP. CALL LIGHT WIHTIN REACH. O2 AT 97% ON ROOM AIR. HEART RATE OF 70. PT ALLOWED TO REST. PT EASILY VIEWED FROM NURSES STATION.
--- NOTE | 2020-01-15 09:00 | NUR ---
In room for morning med pass and assessment. For assessment pt was at CIWA of 9, hypertensive, see assessment for more. Pt repositioned in bed to comfort. Pt has IV fluids running as ordered. IV does not draw well, but flushes easily. Pt appearing calm with a FLACC score of 2. Pt able to take morning meds slowly, ktv-be-[id number]-time, with apple juice. Lela SANDOVAL assisted with assessment, meds, and care this moring. Pt lying in bed, semi fowlers, side rails up, call light within reach, bed alarm on.
--- NOTE | 2020-01-15 09:48 | NUR ---
PT CLIMBING OUT OF BED. THIS RN TO ROOM TO CHECK ON PT. PT REPORTS "I'M GOING TO THE PARKING LOT." AND "I'M EATING DINNER." PT OREINTED TO PLACE AND PERSON BUT OTHERWISE DISORIENTED. ARMS STIFF, PT GRASPING AT OBJECTS IN THE AIR. PT ALSO GRASPING HEAD, PT REPORTS HEADACHE BUT IS UNABLE TO RATE PAIN. FLACC SCORE OF 2/10. CIWA SCORE OF 10. SEE MAR FOR MEDICATION GIVEN. PT STATES "I WANT MY DINNER!" PT ASSISTED WITH EATING SOME JELLO. NO ADDITIONAL REQUESTS OR COMPLAINTS AT THIS TIME. CALL LIGHT WITHIN REACH. BED RAILS UP. BED ALARM ON.
--- NOTE | 2020-01-15 10:40 | NUR ---
In room to assist Lela RN with pt. Pt covered with blankets, reassured she was safe and taken care of here with us. Pt appearing calm and reassured. Pt lying in bed, side rails up, call light within reach, bed alarm on, curtain and room door open & visible from nurses station.
--- NOTE | 2020-01-15 11:00 | NUR ---
In room for rounding and vitals. Pt VSS, CIWA of 9. Pt attends changed. New attends placed. Pt repositioned for comfort. Pt lying in bed, semi fowlers, bed in lowest position, call light within reach, bed alarm on. TV on.
--- NOTE | 2020-01-15 11:39 | NUR ---
Pt climbing out of bed while talking with case management, Lela RN to bedside. Pt swings at Rn Lela stating "leave me the fuck alone". CIWA score of 16. Pt pulling on tubes and lines. Pt scratching skin and swinging arms. Medication given, see MAR. Pt repositioned in bed, warm blankets provided, side rails up, bed in lowest position, call light beside her, bed alarm on.
--- NOTE | 2020-01-15 12:00 | NUR ---
THIS RN TO ROOM WITH MD FOR ROUNDS. PT RESTLESS AND GRABBING AT ITEMS IN THE AIR. PT ORIENTED TO PLACE SELF AT THIS TIME. NEW ORDERS PLACED. ROSELIA CARE DONE. FRESH DEPENDS IN PLACE. HEARD CATHETER PLACED PER PROTOCOL. 45ML STIVEN URINE NOTED. PT REPOSITIONED IN BED. BED RAILS UP. CALL LIGHT WITHIN REACH. BED ALARM ON.
--- NOTE | 2020-01-15 12:20 | NUR ---
Spoke with Shaila, she is very difficult to understand. Initially she answered questions but became suspicious and would state, "why do you need to know" with slurred speach to every question. Will follow up when pt is more lucid.
--- NOTE | 2020-01-15 12:46 | NUR ---
MID DAY ASSESSMENT DUE. PTS FRIEND, DEEPIKA ARRIVED TO VISIT WITH PT. PT RESTING IN BED. AGITATED AT TIMES. CIWA SCORE OF 5 AT THIS TIME, PT DRIFTS QUICKLY OFF TO SLEEP. RR = 12-18, O2 SATURATION OF 100% ON ROOM AIR. ASSESSMENT DONE. LUNG SOUNDS CLEAR. ABDOMEN DISTENDED BUT SOFT. URINE QUANTITY INSUFFICENT. 14ML REMOVED FROM CATHETER BAG SINCE PLACEMENT. PT ORIENTED TO SELF, PLACE, AND FRIEND AT BEDSIDE BUT OTHERWISE DISORIENTED. NEW IV FLUIDS HUNG. PT REPOSITIONED IN BED. BED RAILS UP. CALL LIGHT WITHIN REACH. BED ALARM ON. PTS FRIEND DEEPIKA AT BEDSIDE. DEEPIKA REPORTS PT "HAS NO WHERE TO LIVE." AND ADMITS THAT HE HAS BEEN HOUSING HER AND SUPPLYING HER WITH BEER. EDUCATION DONE WITH DEEPIKA WHO VERBALIZES UNDERSTANDING.
--- NOTE | 2020-01-15 13:20 | NUR ---
UPDATED ON PTS INSUFFICIENT VOIDING STATUS. NEW ORDERS PLACED.
--- NOTE | 2020-01-15 13:50 | NUR ---
PT ASLEEP, FRIEND AT BS. PT IS ASLEEP, INFORMED SHE GETS AGITATED EASILY. WILL FOLLOW NEEDED
--- NOTE | 2020-01-15 14:00 | NUR ---
In room for afternoon med pass. Pt needing another IV line to administer her ordered fluids, meds, and PRN ativan. Pt CIWA score of 15. Pt swatting at the air and us. Second IV line started by Lela SANDOVAL. Pt given her meds. Pts briefs changed and bed linens changed. Pts meaghan care done, barrier cream applied, new briefs given. Pt lying in bed, bed in lowest position, side rails up, call light within reach, friend in the room. Pt visible from nurses station through open curtain.
--- NOTE | 2020-01-15 14:04 | NUR ---
MEDICATION DUE. THIS RN TO BEDSIDE. 2ND IV ATTEMPTED X2 BY THIS RN, UNSUCESSFUL. IV PLACED IN RIGHT AC BY JAIME ROOT. BRISK BLOOD RETURN NOTED. MEDICATIONS GIVEN (SEE MAR). PT GRASPING AT ITEMS IN THE AIR, AGITATED WITH CARES STATING "GET OUT OF HERE!" AND SCRACTCHING LEGS. CIWA SCORE OF 15. BLOOD NOTED ON PTS TEETH. PT APPERS TO HAVE BEEN BITING LIPS. ORAL CARE DONE. CHAP STICK APPLIED. NO ADDITIONAL BLOOD NOTED ON PTS MOUTH. FLUIDS HUNG PER MD ORDER RELATED TO INSUFFICIENT URINE OUTPUT. 12ML URINE OUT IN THE PAST HOUR. ROSELIA CARE DONE. LIQUID BM NOTED, DEPENDS CHANGED. LINENS CHANGED. BED RAILS UP. CALL LIGHT WITHIN REACH. BED ALARM ON. PTS FRIEND NAILAL AT BEDSIDE.
--- NOTE | 2020-01-15 15:15 | NUR ---
In room for pt care. Pt was grasping and swatting at the air, speaking garbled words. Pt CIWA score of 14. Pt given PRN ativan as ordered. Pt Is&Os taken and charted. Pt now appearing calm and oriented to self and place. Pt in bed, awake and appearing calm, side rails up, bed in lowest position, call light within reach, friend at bedside.
--- NOTE | 2020-01-15 17:18 | NUR ---
MD notified of low urine output, new orders given to increase rate of IV fluids to 125ml/hr.
--- NOTE | 2020-01-15 17:34 | NUR ---
PT HERE FOR ACUTE ALCOHOL WITHDRAWL. PT MADE NPO THIS AFTERNOON. PT HEAVY 2 PERSON ASSIST, BED REST THIS SHIFT. CIWA PROTOCOL IN PLACE WITH SCHEDULED AND PRN LORAZAPAM GIVEN. PT INCONTINANT OF URINE AND STOOL. FREQUENT ROSELIA CARE. HEARD CATHETER PLACED, NOT QUANTITY SUFFICIENT, MD AWARE, BOLUS GIVEN. DISTENDED ABDOMEN CONTINUES, REMAINS SOFT. LACTULOSE GIVEN. ETELVINA HOSE AND HEEL PROTECTORS IN PLACE. FRIEND AT BEDSIDE FOR MUCH OF THIS SHIFT. PT DOES NOT USE CALL LIGHT. BED ALARM IN PLACE.
--- NOTE | 2020-01-15 18:50 | NUR ---
In room to assist Lela RN and Maria A RN with IV attempt. Pt CIWA was 11, and pt got her scheduled ativan dosage. Pt lying in bed, side rails up, bed in lowest position, call light within reach, curtain open and pt visible from nurses station.
--- NOTE | 2020-01-15 20:30 | NUR ---
PATIENT IS RESTLESS. CIWA 13. 2 STAFF ASSIST TO TURN PATIENT AND CHANGE LINENS. PATIENT POSITIONED FOR COMFORT. VS STABLE. IV SITE IN LEFT UPPER ARM APPERAS SLIGHTLY LEAKY, PULLS BACK BLOOD AND FLUSHES EASILY. IV FLUIDS INFUSING PER ORDER. PATIENT'S URINE IS BRIGHT YELLOW, HEARD CARE DONE. ORAL CARE DONE, PATIENT RESPONDS SOME WHAT TO VERBAL STIMULI BUT RESPONCE IS GARBLED AND PATIENT DOES NOT ANSWER ORIENTATION QUESTIONS. LARGE AMOUNT OF ACITES NOTED. BOWEL SOUNDS ACTIVE. LUNGS ARE CLEAR. ALLOWED PATIENT TO REST. REDUCED STMULI IN ROOM TO ASSIST WITH REST. BED ALARM ACTIVE. PATIENT IN VIEW OF NURSES STATION.
--- NOTE | 2020-01-15 22:30 | NUR ---
PATIENT CONTINUES TO BE RESTLESS. REPOSITIONED AGAIN IN BED. IV SITE APPEARS MORE LEAKY AND PATIENT APPEARS PAINFUL WHEN AREA TOUCHED. NO SWELLING NOTED. LINE FLUSHES EASLIY. SCHEDULED MEDS PROVIDED. CIAW 14. URINE OUTPUT MINIMAL PREVIOUSLY NOTED. VS STABLE.
--- NOTE | 2020-01-16 00:15 | NUR ---
PATIENT APPEARS MORE RESTLESS. IS REACHING OUT AND FIGHTING, APPEARS TO BE HALLUCINATING. CIWA 19, PRN ATIVAN PROVIDED. IV SITE CONTINUES TO BE CONCERNING. PATIENT HAS LIMITED IV ACCESS AND MULTIPLE FAILED ATTEMPTS. ULTRASOUND GUIDED IV PLACED BY SYDNIE SANDOVAL IN RIGHT UPPER ARM. PATIENT REPOSITIONED FOR COMFORT. VS STABLE. CHANGED BP TO UPPER RIGHT LEG TO PREVENT INJURY TO IV SITES. PATIENT ABLE TO SETTLE AFTER STAFF EXIT THE ROOM. LIGHTS DIMMED FOR REST.
--- NOTE | 2020-01-16 01:15 | NUR ---
Patient restless and agitated in bed. Patient continually attempting to climb out of bed and is unable to be re-directed. Patient yelling at nursing staff and having visual hallucinations. 2mg of prn ativan given.
--- NOTE | 2020-01-16 02:00 | NUR ---
PATIENT IS RESTLESS. ATTEMPTING TO MOVE HER LEGS OUT OF BED AND PICKING AT GOWN AND MONITOR LEADS. SCHEDULED ATIVAN PROVIDED. PATIENT REPOSITIONED IN BED. SMALL SMEAR OF BM CLEANED, SKIN SURROUNDING THE ANUS IS RED AND SMEALL OPEN AREAS NOTED. AREA CLEANED AND BARRIER CREAM APPLIED. PATIENT TURNED TO RIGHT SIDE. PILLOWS PADDING SILVIANO AREAS. IV SITE IN RIGHT UPPER ARM HAS IVF PER ORDER, APPEARS WNL.
--- NOTE | 2020-01-16 03:53 | NUR ---
PATIENT CALLING OUT. UNABLE TO VERBALIZE NEEDS. ORIENTED X1. ASSISTED PATIENT TO REPOSITION IN BED. ATTENDS ARE CLEAN. VS STABLE.
--- NOTE | 2020-01-16 06:00 | NUR ---
SCHEDULED MEDS GIVEN PER ORDER, LEFT UPPER ARM IV SITE WNL. PATIENT APPEARS TO BE SLEEPING. ALLOWED PATIENT TO REST.
--- NOTE | 2020-01-16 07:45 | NUR ---
pt sleeping soundly, resp even and unlabored, vitals are stable, pt remains on room air. bed alarm is on.
--- NOTE | 2020-01-16 08:35 | NUR ---
pt still sleeping soundly, able to give iv meds with out waking pt, bed alarm is on. iv site is intact, flushes well, no redness noted. pt vitals are wnl.
--- NOTE | 2020-01-16 11:14 | NUR ---
PATIENT HAS EYES OPEN. TRIED TO TALK WITH HER. MOST SPEECH IS TO GARBLED TO UNDERSTAND. WILL CONTINUE TO FOLLOW.
--- NOTE | 2020-01-16 11:26 | NUR ---
ASSISTED RN WITH LINEN/GOWN CHANGE. SMEAR OF BM IN BRIEF. CALL LIGHT IN REACH
--- NOTE | 2020-01-16 12:05 | NUR ---
SAT PATIENT UP FOR SMALL SIP OF WATER
--- NOTE | 2020-01-16 19:50 | NUR ---
pt required iv ativan prn x2 during day. pt able to swallow po liquid med, does not santy po water without significant coughing. pt remains confused, disoriented, and ill-tempered at times. iv sites are both intact. pt has low urine output. vitals are within pt normal, MD is aware.
--- NOTE | 2020-01-16 20:00 | NUR ---
PATIENT PROVIDED WITH MEDS PER ORDER. PATIENT IS RESTING IN THE BED. NO ATTEMPTS TO GET UP AT THIS TIME. IV FLUIDS PER ORDER, SITE WNL. HEARD CARE DONE. PATIENT REPOSITIONED IN BED AND TURNED TO RIGHT SIDE. ORAL CARE DONE.
--- NOTE | 2020-01-16 21:45 | NUR ---
MEDS GIVEN PER ORDER. CIWA 15. PATIENT MORE RESTLESS THAN PREVIOUS ASSESSMENT. SPEECH IS SLURRED AND CONFUSED. ASSISITED PATIENT TO REPOSITION IN BED. ORAL SWAB PROVIDED.
--- NOTE | 2020-01-17 00:30 | NUR ---
PATIENT INCONTINENT OF LOOSE STOOL. ROSELIA CARE DONE, BARRIER CREAM APPLIED. PATIENT REPOSITIONED IN BED. LEAKING NOTED AT IV SITE IN RIGHT UPPER ARM. ATTEMPTS TO REDRESS SITE FAILED. IV SITE DC'D. FLUIDS INFUSING IN LEFT UPPER ARM. IT WAS NOTED THAT THE PATIENT'S RIGHT LABIA MAJORA IS ACUTELY SWOLLEN. NO AREA OF INJURY NOTED. PATIENT HAS BEEN LAYING PRIMARLY ON HER RIGHT SIDE AND APPEARS TO FAVOR THAT SIDE. PILLOWS PLACED TO POSITION HER ON HER LEFT SIDE. VS STABLE.
--- NOTE | 2020-01-17 02:00 | NUR ---
MEDS PROVIDED PER ORDER. CIWA 13. PATIENT UNABLE TO ANSWER ORIENTATION QUESTIONS BUT APPEARS LESS AGITATED THAN PREVIOUS ASSESSMENTS. ORAL CARE PROVIDED. VS STABLE.
--- NOTE | 2020-01-17 04:26 | NUR ---
PATIENT ATTEMPTING TO PULL ON HER HEARD. ABLE TO CALM THE PATIENT AND RELEASE HER HANDS FROM THE HEARD. PATIENT ORIENTED TO SELF AND APPEARS TO BE MORE ORIENTED TO HER SURROUNDINGS WELL. PATIENT HAD A SMEAR OF BM, NEW ATTENDS PLACED. LABIA MAJORA IS MORE SWOLLEN AT THIS TIME AND LEAKING FLUID FROM THE BOTTOM PORTION, WHICH IS MORE RED AND TIGHT. ICE PACK APPLIED TO AREA WITH PILLOW CASE TO PROTECT THE SKIN. MD NOTIFIED OF INCREASED SWELLING.
--- NOTE | 2020-01-17 07:42 | NUR ---
PT IS DROWSY BUT FIDGETS IN BED. ARM RAILS UP X4, BED ALARM IS ON. IV SITE IS INTACT, FLUIDS INFUSING EASILY.
--- NOTE | 2020-01-17 08:13 | NUR ---
PT IS AGITATED, TALKING TO PEOPLE NOT THERE, WHEN ASKED OF HER LOCATION PT STATES "I'M AT [facility]", PICKING AT THE AIR. PRN IV ATIVIAN GIVEN.
--- NOTE | 2020-01-17 09:32 | NUR ---
PT REPOSTIONED UP IN BED, INTO AN UPRIGHT POSITION. PT ABLE TO SWALLOW PO LIQUID MEDICATION, THEN ABLE TO HOLD WATER CUP AND TAKE SIPS OF WATER. PT NOT ABLE TO SPEAK CLEARLY, REMAINS DISORIENTED TO PLACE, EVENT, TIME. PT ONLY ORIENTED TO SELF.
--- NOTE | 2020-01-17 09:50 | NUR ---
PT'S SISTER CALLED TO CHECK ON PT. LEFT PHONE NUMBER [phone].
--- NOTE | 2020-01-17 11:23 | NUR ---
PT INCONTINENT OF MEDIMUM LIQUID STOOL. ROSELIA CARES DONE, ATTEND CHANGED, PT BOOSTED UP IN BED, AND REPOSITIONED FOR COMFORT.
--- NOTE | 2020-01-17 12:20 | NUR ---
PT GIVEN 2 MG PRN ATIVAN FOR AGITATION AND ELEVATED CIWA. REPOSITIONED UP IN BED.
--- NOTE | 2020-01-17 13:05 | NUR ---
PT STATES "I NEED THE POTTY". 2 PERSON ASSIST UP TO THE BEDSIDE, ABLE TO GATO SITTING WITH SUPPORT. TWO PERSON ASSIST UP TO THE BEDSIDE COMMODE. PT ABLE TO HAVE APPROXIMATLY 150-200 ML LIQUID STOOL. ROSELIA CARE DONE, PT ASSISTED BACK TO BED WITH 2 PERSON ASSIST. ATTEND PLACED, PT BOOSTED UP IN BED. BED ALARM PLACED.
--- NOTE | 2020-01-17 16:10 | NUR ---
ULTRA SOUND GUIDED IV SITE PLACED BY SHAHLA SANDOVAL. FLUSHES EASILY, BLOOD RETURN EASILY OBTAINED.
--- NOTE | 2020-01-17 20:00 | NUR ---
PATIENT RESTING IN BED EYES CLOSED. VS STABLE. IV FLUIDS PER ORDER, SITE WNL. HEARD DRAINING CLEAR YELLOW URINE. PATIENT TOLERATING ROOM AIR. RESPONDS TO VERBAL STIMULI WITH NOISES BUT DOES NOT ANSWER ORIENTATION QUESTIONS.
--- NOTE | 2020-01-17 21:00 | NUR ---
PATIENT ATTEMPTING TO GET OUT OF BED. REQUEST THE BATHROOM. ASSISTED PATIENT TO THE BSC. PATIENT HAD MEDIUM LOOSE STOOL. PATIENT ABLE TO STAND, HOWEVER CORRDINATION WITH UNSTEADY. PATIENT IS MORE ALERT AT THIS TIME. ASKING FOR HER BAG AND SOME JUICE. PATIENT'S BELONGINGS PROVIDED FOR HER. JUICE PROVIDED. PATIENT TOLERATED WELL. PATIENT IS ORIENTED TO SURROUNDINGS BUT NOT EVENT. DISCUSSED PATIENT'S PLAN OF CARE WHICH SHE APPEARED TO ONLY MINIMALLY UNDERSTAND. ASSISTED PATIENT TO BRUSH AND BRAID HER HAIR. PATIENT REQUESTING TO SIT AT BEDSIDE AND APPEARS UNSTEADY. KENZIE JULY SAT WITH HER UNTIL SHE WAS READY TO LAY BACK IN BED. BED ALARM ACTIVE.
--- NOTE | 2020-01-18 | NUR ---
PATIENT APPEARS TO BE SLEEPING SOUNDLY. SNORING SOFTLY AND STAYING WRAPPED UP IN THE BLANKETS, COMPARED TO PREVIOUS NIGHT OF FREQUENTLY REMOVING BLANKETS AND ATTEMPTING TO GET OUT OF BED. ALLOWED PATIENT TO REST. IV FLUIDS PER ORDER. SITE WNL.
--- NOTE | 2020-01-18 02:44 | NUR ---
SCHEDULED MEDS PROVIDED PER ORDER. PATIENT APPEARS TO BE SLEEPING SOUNDLY. EYES CLOSED, SNORING SOFTLY. VS STABLE.
--- NOTE | 2020-01-18 04:00 | NUR ---
PATIENT CONTINUES TO SLEEP SOUNDLY. WOKE BRIEFLY WITH ASSESSMENT AND FELL BACK TO SLEEP. VS STABLE. IV FLUIDS PER ORDER, SITE WNL. MINIMAL URINE OUTPUT. WILL CONTINUE TO MONITOR.
--- NOTE | 2020-01-18 06:00 | NUR ---
PATIENT APPEARS TO BE SLEEPING SOUNDLY. VS STABLE. SCHEDULED MEDS PROVIDED. IV SITE WNL. HEARD EMPTIED. MINIMAL URINE OUTPUT NOTED. ATTENDS APPEARS CLEAN.
--- NOTE | 2020-01-18 06:56 | NUR ---
AWARE OF PATIENT'S LOW URINE OUTPUT.
--- NOTE | 2020-01-18 07:48 | NUR ---
report recieved. IS RESTFUL AT THIS TIME. HEARD CATH PATENT, IVF PATENT. NO DISTRESS NOTED. WILL HOLD ON ASSESSMENT UNTIL PATIENT IS MORE AWAKE. HR-80, RR-14
--- NOTE | 2020-01-18 10:00 | NUR ---
HAS BEEN SLEEPING. ATIVAN HELD AT THIS TIME. MD IS AWARE. PATIENT HAS BEEN RESTFUL THIS MORNING.
--- NOTE | 2020-01-18 11:23 | NUR ---
DR. SLAUGHTER HAS BEEN HERE TO SEE PATIENT.
--- NOTE | 2020-01-18 11:50 | NUR ---
OOB TO CHAIR WITH ASSIST. ASSESSMENT DONE. FRIEND AT CHAIR SIDE. RN AND FRIEND ASSISTED PATIENT WITH LUNCH. PATIENT IS CALM AND TALKING. IS DIFFICULT TO UNDERSTAND. ALYSSA HAS BEEN DC'D. HAS FINE TREMORS.
--- NOTE | 2020-01-18 12:30 | NUR ---
TOOK LUNCH WELL. FRIEND REMAINS IN ROOM.
--- NOTE | 2020-01-18 13:15 | NUR ---
REMAINS IN CHAIR, AGITATED, YELLING AT FRIEND IN ROOM. PATIENT WANTS BEER. SAID SHE IS GOING TO [employer]. NOT AWARE SHE IS IN HOSPITAL. PATIENT VERY FRUSTRATED.
--- NOTE | 2020-01-18 14:22 | NUR ---
Attempting to get out of recliner. This nurse in room. Patient does not want bed or to sit back in chair. Asked if needs bathroom, states yes. Incontinent and continent of watery, yellow stool. Meaghan-care provided. Stage II ulcer to right buttock noted while meaghan-care provided. Clean attend placed on patient, returns to recliner. Call light in reach.
--- NOTE | 2020-01-18 15:30 | NUR ---
TRANSFER ORDERS TO MED-SURG RECIEVED. MONITOR AND HEARD CATH DC'D.
--- NOTE | 2020-01-18 17:09 | NUR ---
1650 PT ARRIVED TO ROOM 110, REPORT RECIEVED FROM BHAVIN YUNG RN. PT RESTING IN HER BED AND IS DROWSY BUT RESPONSIVE AND CONFUSED, THIS IS THE SAME WHAT SHE WAS IN CCU PER REPORT. BED ALARM IS ON AND I ATTEMPTED TO ORIENT THE PT TO HER NEW ROOM. PT IS VISABLE FROM THE NURSING STATION WELL. VITAL SIGNS ARE STABLE AND PT APPEARS IN NO DISTRESS. SCD'S AND ETELVINA HOSE ARE ON AND IV FLUID IS RUNNING ORDERED. SEE ASSESSMENT FOR A FULL UPDATE.
--- NOTE | 2020-01-18 17:22 | NUR ---
CIWA SCORE IS A 10, DR SLAUGHTER CALLED AND NOTIFIED.
--- NOTE | 2020-01-18 17:34 | NUR ---
Pt now awake and is eating dinner with the RENTAL MANAGEMENT TRAINEE feeding her. Her CIWA is however a 10 and she was medicated as ordered, see emar.
--- NOTE | 2020-01-18 18:19 | NUR ---
Pt speaking about needing shoes on as she states it is cold outside. She also states "that didn't take me long, she is my sister" and she started crying. Pt unable to state where she is or the year or date. JOELLE is now a 12, see emar.
--- NOTE | 2020-01-18 18:28 | NUR ---
CIWA NOW A 12, DR SLAUGHTER CALLED AND NOTIFIED.
--- NOTE | 2020-01-18 18:40 | NUR ---
Pt attempting to climb out of bed she was talked to and medicated and settled back down after a few minutes. Pt incont of bowel and was changed and cleaned. Pt has not voided since her ocasio was dc'd and was bladder scanned for 989. DR Dietz will be called at this time.
--- NOTE | 2020-01-18 18:52 | NUR ---
Dr SLAUGHTER CALLED BY JENNY SANDOVAL AND NOTIFIED OF THE BLADDER SCAN [place] AND HE STATES THIS IS DUE TO HER ASCITES AND THE SCANNER PICKING UP THAT FLUID. GIVE THE PT MORE TIME AND CONTINUE TO MONITOR PER DR SLAUGHTER.
--- NOTE | 2020-01-18 19:30 | NUR ---
RECEIVED REPORT AT 1900, PT AT THAT TIME PT WAS IN BED AWAKE. BED ALARM ON.
--- NOTE | 2020-01-18 20:50 | NUR ---
PT HAD LEGS MOVING OFF SIDE OF BED, UP TO BSC FOR 2PA. PT WAS WEAK AND A BIT SHAKY, HAD 200ML LIQUID STOOL/URINE MIX. ROSELIA CARE DONE, ATTENDS PLACED AND PT ASSISTED AND REPOSITIONED BACK IN BED WITH BED ALARM ON.
--- NOTE | 2020-01-18 21:30 | NUR ---
BP SOMEWHAT ELEVATED BUT BETTER THAN IN DAYS PAST. PT DISORIENTED TO CIRCUMSTANCE, DATE AND TIME ONLY AT THIS TIME. LOWER LOBES DIMINISHED BUT UPPER LOBES CLEAR, PT DID VOID ABOUT 200MLS SO FAR THIS SHIFT. ASCITIES STILL PRESENT, ABD IS FIRM TO TOUCH. NO NEW CONCERNS NOTED AT THIS TIME.
--- NOTE | 2020-01-18 22:19 | NUR ---
CIWA IS 11 AT THIS TIME. SCHEDULED ATIVAN HAS BEEN GIVEN.
--- NOTE | 2020-01-19 00:58 | NUR ---
PT AT THIS TIME IS RESTING WITH EYES CLOSED. PT SO FAR HAS VOIDED X2 THIS SHIFT. PT HAS BEEN TURNED X3 SO FAR THIS SHIFT.
--- NOTE | 2020-01-19 02:14 | NUR ---
PT IS SLEEPING AT THIS TIME. CIWA IS A 0 AT THIS TIME. WILL WAIT ON THE SCHEDULED ATIVAN FOR NOW.
--- NOTE | 2020-01-19 04:02 | NUR ---
PT IS STILL ASLEEP. WILL CONTINUE TO MONITOR.
--- NOTE | 2020-01-19 05:30 | NUR ---
PT AT THIS TIME HAS NO NEED FOR THE SCHEDULED 0600 ATIVAN DOSE. WILL HOLD IT FOR NOW. PT IS NOT REALLY EXHIBITING ANY SIGNS OF WITHDRAWL AT THIS TIME.
--- NOTE | 2020-01-19 06:31 | NUR ---
AT START OF SHIFT PT NEEDED SCHEDULED AND PRN ATIVAN. SINCE ABOUT 0100 PT HAS HAD NO NEED FOR PRN OR SCHEUDULED ATIVAN. PT HAS BEEN COOPERATIVE AND MOSTLY ORIENTED TO PLACE, PERSON, . +4 OVERALL STRENGTH, URINE OUTPUT IS JSUT ADEQUATE, PT HAS HAD BM'S WELL. ALL LOBES ARE CLEAR, ASCITIES IS UNCHANGED AND SO IS EDEMA ON LABIA. BP'S HAVE BEEN SOMEWHAT ELEVATED BUT BETTER THAN IN DAYS PAST. NO NEW CONCERNS NOTED SO FAR THIS SHIFT.
--- NOTE | 2020-01-19 07:48 | NUR ---
PT UP TO BSC ROSELIA CARE PROVIDED THEN TO CHAIR FOR MORNING MEAL 2 PERSON ASSIST. PT SITTING UPRIGHT CHAIR ALARM IN PLACE DENIES DISCOMFORTS OR NEEDS OF
--- NOTE | 2020-01-19 10:42 | NUR ---
PT UP IN CHAIR MOST OF THE MORNING EATS 70% OF HER MEAL. RETURNS TO RESTING IN BED PER HER REQUEST. BED ALARM IN PLACE. PT TRIES TO GET UP UNATTENDED, STAFF ASSIST TO BSC
--- NOTE | 2020-01-19 10:45 | NUR ---
PATIENT SLEEPING IN BED. DID NOT WAKEN TO NAME. WILL RETURN LATER.
--- NOTE | 2020-01-19 11:13 | NUR ---
PATIENT TRANSFERED TO BSC, THEN TO CHAIR, 2PA. CALL LIGHT IN REACH. NO FURTHER NEEDS AT THIS TIME.
--- NOTE | 2020-01-19 12:13 | NUR ---
PT RESTLESS STATES SHE WANTS TO LEAVE. PHONE RINGS, PT AGREES TO GO TO THE CHAIR FOR HER PHONE CALL. PT BACK TO RESTING IN BED VISITOR ARRIVES SOON AFTER.
--- NOTE | 2020-01-19 12:35 | NUR ---
PATIENT UP IN CHAIR. FRIEND ADRIENNE IN ROOM. TALKED WITH PATIENT ABOUT DISCHARGE. PATIENT IS ORIENTED TO PERSON AND PLACE. PATIENT MUMBLES ALOT WHEN SPEAKING. PATIENT SPEAKS HALTINGLY AND QUIETLY. PATIENT STATES SHE IS GOING TO "HIS HOUSE" POINTING TO FRIEND. HE STATES SHE CAN'T GO STAY THERE. HE STATES HE HAS TO HIDE HER, HAS TO TAKE HER TO THE PARK AND STAY LONG POSSIBLE BECAUSE HE CAN'T HAVE PEOPLE STAYING THERE. HE IS WORRIED HE WILL LOOSE HIS HOUSING. PATIENT JUST SITS AND LISTENS BUT DOESN'T SEEM TO CARE WHAT HE IS SAYING. ASKED PATIENT IF SHE WOULD BE WILLING TO GO TO REHAB CENTER FOR AWHILE UNTIL SHE GETS STRONGER. SHE REFUSES THIS. ARYA STATES SHE HAS GONE TO [facility] AND [place] AND LEFT. WE TRIED TO TALK WITH PATIENT THAT SHE NEEDS TO STAY IN ORDER TO GET PLACES TO AGREE TO TAKE HER. SHE STATES SHE WILL "GO TO MY DAUGHTERS". ARYA STATES HER DAUGHTERS PLACE IS FULL OF PATIENT DRINKING AND DOING DRUGS. HE TRIES TO TELL HER THAT HER DAUGHTER IS "BAD FOR YOU". HE STATES HER DAUGHTER CAN'T HELP HER. HE STATES "SHE GETS SOBER AND THEN GOES TO STAY AT THESE PLACES THEN DRINKS UNTIL SHE IS SICK AND THEN COMES TO ME AND I HAVE TO BRING HER TO THE HOSPITAL". ASKED PATIENT WHAT SHE THINKS ABOUT THIS. SHE DOESN'T ANSWER. ASKED IF SHE WANTED TO GET SOBER. SHE STATES SHE ISN'T GOING TO DRINK AGAIN. ASKED IF SHE WOULD LIKE A VISIT FROM SOMEONE AT [facility] OR THE [facility]GRAM FROM [facility]. PATIENT REFUSES THIS. "I DON'T NEED THAT". ASKED AGAIN ABOUT POSSIBLE REHAB OR EVEN HELP WITH HOUSING THROUGH [facility] OR [facility]. SHE DOESN'T ANSWER. JUST STARES AT ME. FINALLY STATES I WOULD GIVE HER SOME TIME TO THINK AND COME BACK LATER.
--- NOTE | 2020-01-19 13:30 | NUR ---
RETURNED TO ROOM. AGAIN TALKED WITH PATIENT FOR EXTENDED TIME REGARDING DISCHARGE. PATIENT REFUSES TO AGREE TO SNF. ARYA STILL IN ROOM. HE TELLS PATIENT SHE CANNOT COME STAY WITH HIM. PATIENT HAS NO ANSWER TO WHERE SHE CAN GO. FINALLY STATES SHE IS "GOING TO MY SISTERS". ARYA POINTS OUT TO HER THAT HER SISTER LIVES AT SAME HOUSE DAUGHTER AND THEY ALL DRINK AND DON'T HELP HER. SHE DOESN'T ANSWER. I STRESSED TO PATIENT THAT SHE NEEDS TO QUIT DRINKING DUE TO HER LIVER. WAS BLUNT THAT THIS WILL KILL HER AT SUCH AN EARLY AGE. THAT WE WANT TO HELP HER, BUT SHE HAS TO HELP HERSELF. I TOLD HER THE DECISION IS HERS. THAT AT THIS TIME, WE WILL PLAN TO DISCHARGE HER TO THE STREET AND SHE WILL NEED TO DECIDE WHERE TO GO. BUT THAT IF SHE CHANGES HER MIND, TO LET US KNOW AND WE CAN HELP MUCH WE CAN. SHE JUST STARES AT ME. AGAIN OFFERED TO CALL ALCOHOL PROGRAMS, SHE SHAKES HER HEAD NO. CM WILL CONTINUE TO FOLLOW.
--- NOTE | 2020-01-19 13:38 | NUR ---
DC DIESEL POWERPLANT MECHANIC HELPER IN TO TALK WITH PT REGARDING UPDOMING DC FROM [facility]. OPTIONS OF WHERE TO GO DISCUSSED AT LENGTH. PT VISITOR REMAINS AT CHAIR SIDE. PT TOLERATES MOST OF NOON MEAL. DENIES DISCOMFORTS OR NEEDS OF
--- NOTE | 2020-01-19 14:35 | NUR ---
RICHAR WORKED WITH PT EARLIER. LONNIET NOW IN CHAIR RESTING. VISITOR IN ROOM. CALL LIGHT IN REACH. NO FURTHER NEEDS AT THIS TIME.
--- NOTE | 2020-01-19 15:52 | NUR ---
PT CONTINUED IN THE CHAIR MOST OF THE AFTERNOON WITH VISITOR PRESENT. RETURNS TO BED AT THIS TIME RESTING EYES CLOSED
--- NOTE | 2020-01-19 16:15 | NUR ---
AGAIN SPOKE WITH PATIENT IN ROOM. SHE STILL MAINTAINS SHE IS NOT GOING TO STAY SOMEWHERE SUCH REHAB OR A LIVING FACILITY. STATES "NO". AGAIN ASKED WHERE SHE IS GOING AND IF THAT IS SAFE. SHE STATES "TO MY DAUGHTERS". PATIENT WON'T ANSWER IF IT IS SAFE. REMINDED PATIENT SHE IS STILL WEAK AND IS AT RISK TO FALL OR GET SICK AGAIN IF SHE DRINKS ALCOHOL. PATIENT DOESN'T ANSWER, JUST STARES AT ME. DISCUSSED THAT I CAN'T MAKE HER DO ANY OF THESE THINGS, BUT WE RECOMMEND SHE STAY AT REHAB OR MOVE INTO A LONG-TERM HOUSING PLACE WHERE SHE CAN HAVE HELP AND CARE. RECOMMENDED SHE MEET WITH [facility] OR THE DRUG AND ALCOHOL PROGRAM AT [facility]. PATIENT SHAKES HER HEAD NO. EXPLAINED THAT WHEN SHE IS DISCHARGED WE WILL HAVE TO DISHCARGE HER TO THE STREET AND SHE WILL NEED TO FIND A PLACE TO GO IF SHE WILL NOT AGREE TO LET US HELP HER. PATIENT JUST STARES AT ME AND STARTS WATCHING TV. STAFF UPDATED.
--- NOTE | 2020-01-19 18:13 | NUR ---
PATIENT IS RESTING IN CHAIR. AMBULATED ONE LAP AROUND NURSES STATION. 1PA AND FWW. BLOOD PRESSURE HIGH. RN NOTIFIED. CALL LIGHT IN REACH. NO OTHER NEEDS AT THIS TIME.
--- NOTE | 2020-01-19 18:44 | NUR ---
PT UP TO TOILET THEN WANTS TO WALK AROUND FOR A TIME. RETURNS TO RESTING IN BED
--- NOTE | 2020-01-19 20:03 | NUR ---
REPORT RECEIEVED FROM JAIME ALVARADO. PT LAYING IN BED, LIGHTS ON, STATES NEW PAIN, MADE PLAN WITH PT FOR PRN PAIN MEDICATION. CALL LIGHT IN REACH, WILL RETURN WITH SCHEDULED AND PRN MEDICATIONS.
--- NOTE | 2020-01-19 20:06 | NUR ---
REPORT RECEIVED FROM JAIME LOBO. PATIENT SLEEPING IN CHAIR. CHAIR ALARM ON. CALL LIGHT WITHIN REACH. WILL RETURN WITH SCHEDULED MEDICATIONS.
--- NOTE | 2020-01-19 20:10 | NUR ---
ELECTRONIC SEMICONDUCTOR PROCESSOR ROUNDING NOTE. UP TO BATHROOM AND BACK TO BED WITH 1 PA. PT WITH UNSTEADY GAIT. BEDALARM REPLACED WHEN PT BACK TO BED. CRACKERS AND PUDDING PROVIDED. PT DENIES FURTHER NEEDS. CALL LIGHT IN REACH. ROOM IN VIEW OF RN STATION WITH CURTAIN OPEN. WHITE BOARD UDPATED.
--- NOTE | 2020-01-19 21:59 | NUR ---
SCHEDULED MEDICATIONS ADMINISTERED, ASSESSMENT COMPLETE. IV WNL. VSS. LUNG SOUNDS CLEAR, HR REGULAR, BOWEL TONES ACTIVE. ABD TENDER AND FIRM TO PALPATE. CMS INTACT. WILL CONTINUE TO MONITOR.
--- NOTE | 2020-01-19 22:58 | NUR ---
PT ATTEMPTING TO EXIT BED TO AMBULATE TO BR. ASSISTED 1PA WITH FWW. PT EXHIBITING CONFUSION/ANXIETY, SLURRED SPEECH. PRN SEROQUEL ADMINISTERED. BACK TO BED, BED ALARM ON, CALL LIGHT WITHIN REACH. PUDDING PROVIDED PER PT REQUEST. CLEAN GOWN AND ATTENDS PROVIDED. NO FURTHER REQUESTS AT THIS TIME.
--- NOTE | 2020-01-20 03:01 | NUR ---
ROUNDED ON PATIENT, LAYING IN BED WITH EYES CLOSED, LIGHTS OFF. BREATHING EVEN AND UNLABORED. CALL LIGHT WITHIN REACH, NO APPARENT NEEDS AT THIS TIME
--- NOTE | 2020-01-20 05:23 | NUR ---
ROUNDED ON PATIENT. LAYING IN BED WITH EYES CLOSED, BREATHING EVEN AND UNLABORED. CALL LIGHT WITHIN REACH. NO APPARENT NEEDS.
--- NOTE | 2020-01-20 06:42 | NUR ---
VITALS AND I/O'S COMPLETE. PT AMBULATED SBA WITH FWW TO BR TO VOID. UNSTEADY GAIT. LINENS CHANGED, GOWN CHANGED AND ATTENDS IN PLACE. PT ALERT, BUT SLURRED SPEECH. BACK TO BED, ASSESSMENT COMPLETE, WATER REFRESHED. CALL LIGHT IN REACH, NO FURTHER NEEDS.
--- NOTE | 2020-01-20 06:43 | NUR ---
PATIENT DROWSY AND EXHIBITIING SLURRED SPEECH AND CONFUSION THIS SHIFT. AGITATION AND ANXIETY AT START OF SHIFT RELIEVED BY PRN MEDICATION x1. PT ABLE TO AMBULATE TO BR WITH FWW, SBA. GOWN AND LINENS CHANGED x2. ABD FIRM UPON PALPATION, PT STATES NO DISCOMFORT OR PAIN. BOWEL TONES ACTIVE. VSS, HRR, LUNG SOUNDS CLEAR. ON ROOM AIR. SALINE LOCKED.
--- NOTE | 2020-01-20 07:46 | NUR ---
PT SLEEPING SOUNDLY AT TIME OF REPORT.
--- NOTE | 2020-01-20 08:32 | NUR ---
PT APPEARS MORE ALERT TODAY, MAKING EYE CONTACT AND LOOKING AROUND. SHE IS NOT PARTICULARLY TALKATIVE BUT FOLLOWS INSTRUCTIONS. PT UP IN THE CHAIR SELF FEEDING MORNING MEAL HAS EATEN NEARLY 100% OF AN OMLETTE AND SAUSAGE
--- NOTE | 2020-01-20 09:38 | NUR ---
PATIENT UP TO BATHROOM THEN TO SHOWER CHAIR, 1PA FWW. PATIENT ASSISTED A LITTLE BIT IN SHOWER. ROSELIA CARE, SKIN CARE, SHAMPOO DONE. NEW ATTENDS AND GOWN PROVIDED. PATIENT NOW BACK TO CHAIR, 1PA FWW. WARM BLANKETS GIVEN. CHAIR ALARM ON. CALL LIGHT IN REACH. NO FURTHER NEEDS AT THIS TIME.
--- NOTE | 2020-01-20 10:00 | NUR ---
Spoke with Shaila. She is unsure where she wants to go on dc. States she will go to [facility], reminded he cannot let her live with him. She was able to give me her sister, Susanne's, phone number from her cell phone. I left a message with Susanne asking if she is living in [place] or has returned to [place]. I spoke with [facility] to see if they may have beds open, they requested the chart. I spoke with Susie Narvaez from [facility] and Shaila does have LT medicare. She gave me Shaila's case liner phone number from Claudette Avila, .
--- NOTE | 2020-01-20 10:15 | NUR ---
pt continues up in the chair had a shower with staff assist earlier. tv is on chair alarm is set call light in hand fresh h20 at chairside
--- NOTE | 2020-01-20 10:20 | NUR ---
Received a call from pt's sister Susanne. She states she has returned to [place] and cannot care for Shaila. Updated I am attempting to place in an JAIL. She states she was very disappointed when Shaila left [facility] from [facility]. Let her know I will call her if I find placement. Called and was able to speak with Claudette, correctional case records supervisor from [facility]. She has already spoken with [facility]iki Jama in [place]. Let her know I have faxed a chart to [facility] in [place] also. Chart faxed to Niki Jama [place] [phone].
--- NOTE | 2020-01-20 12:03 | NUR ---
PT HAS BEEN UP IN THE CHAIR THIS SHIFT, AGREES IT FELT GOOD TO GET HER HAIR WASHED. DENIES PAIN OR PARITCULAR NEEDS OF. CHAIR ALARM IS SET.
--- NOTE | 2020-01-20 12:56 | NUR ---
PATIENT SITTING UP IN CHAIR. VISITOR IN ROOM. PATIENT USES THE BATHROOM. ONE PERSON ASSISTING WITH WALKER. PATIENT BACKS TO CHAIR. CHAIR ALARM ON. ICE WATER GIVEN. CALL LIGHTI WITHIN REACH. NO OTHER NEEDS AT THIS TIME
--- NOTE | 2020-01-20 14:01 | NUR ---
PATIENT IN CHAIR RESTING WITH EYES CLOSED. VISITOR IN ROOM. CALL LIGHT IN REACH. NO FURTHER NEEDS AT THIS TIME.
--- OUTSIDE RECORDS SUMMARY | 2020-01-20 14:39 | XMS | Clinical Summary ---
Demographics + + + | Address | [address] | | | [place] [address] | + + + | Home Phone | | + + + | Preferred Language | Unknown | + + + | Marital Status | Single | + + + | Hinduism Affiliation | 1041 | + + + | Race | or | + + + | Ethnic Group | Not or | + + + Author + + + | Author | [facility] | | | and [place] | + + + | Organization | [facility] | | | and [place] | + + + | Address | Unknown | + + + | Phone | Unavailable | + + + Support + + + + + | Name | Relationship | Address | Phone | + + + + + | Joanne Pham | ECON | [address] | | | | | [place] | | | | | [address] | | + + + + + | Viktor Son | EDDIE | Unknown | | + + + + + | Edd Gill | ECON | Unknown | | + + + + + | Conner Barber | ECON | Unknown | | + + + + + Care Team Providers + +------+ + | Care Senior Java Programmer Name | Role | Phone | + +------+ + | Trixie oRse PA-C | PCP | | + +------+ + Allergies + + + + + + | Active Allergy | Reactions | Severity | Noted | Comments | | | | | Date | | + + + + + + | Aspirin | Anaphylaxis | High | 10/05/19 | Pt unable to | | | | | 15 | recall, this | | | | | | information came | | | | | | from [facility] | | | | | | hospital record | + + + + + + | Ciprofloxacin | Anaphylaxis, Other | High | 10/03/19 | Other reaction(s): | | | (See Comments), | | 11 | Throat Swelling / | | | Shortness Of Breath, | | | Closing Pt. Unable | | | Rash | | | to recall, this | | | | | | information came | | | | | | from [facility] | | | | | | hospital record | + + + + + + | Ibuprofen | Hives | | 08/01/19 | Pt also has liver | | | | | 10 | failure | + + + + + + | Lactose | Anaphylaxis | High | 10/05/19 | Pt unable to | | | | | 15 | recall, this | | | | | | information came | | | | | | from [facility] | | | | | | hospital record | + + + + + + | Sulfamethoxazole-Tri | Anaphylaxis | High | 03/17/20 | | | methoprim | | | 15 | | + + + + + + | Sulfa Antibiotics | Shortness Of Breath, | High | 10/03/19 | Other reaction(s): | | | Rash | | 11 | Throat Swelling / | | | | | | Closing Occurred in | | | | | | 2000 | + + + + + + Medications + + + +---------+------+------+-------+ | Medication | Sig | Dispensed | Refills | Star | End | Statu | | | | | | t | Date | s | | | | | | Date | | | + + + +---------+------+------+-------+ | nadolol (CORGARD) | Take 20 mg by mouth | | 0 | | | Activ | | 20 MG tablet | nightly. | | | | | e | + + + +---------+------+------+-------+ | Multiple | Take 1 tablet by | | 0 | | | Activ | | Vitamins-Minerals | mouth Daily. | | | | | e | | (DAILY MULTIPLE | | | | | | | | VITAMINS/LEAD SUSTAINABILITY SPECIALIST) TABS | | | | | | | + + + +---------+------+------+-------+ | rifAXIMin | Take 550 mg by mouth | | 0 | | | Activ | | (XIFAXAN) 550 mg | 2 times daily. To | | | | | e | | TABS | prevent rise in | | | | | | | | ammonia | | | | | | + + + +---------+------+------+-------+ | thiamine (VITAMIN | Take 100 mg by mouth | | 0 | | | Activ | | B-1) 100 mg tablet | Daily. | | | | | e | + + + +---------+------+------+-------+ | lidocaine | Place 1 patch onto | | 0 | | | Activ | | (LIDODERM) 5% patch | the skin as needed. | | | | | e | | | Apply for 12 hours, | | | | | | | | then remove for 12 | | | | | | | | hours. | | | | | | + + + +---------+------+------+-------+ | folic acid 1 mg | Take 1 tablet by | 30 | 0 | 02/0 | | Activ | | tablet | mouth Daily. | tablet | | 4/20 | | e | | | | | | 18 | | | + + + +---------+------+------+-------+ | furosemide (LASIX) | Take 1 tablet by | 30 | 0 | 02/0 | | Activ | | 20 mg tablet | mouth Daily. | tablet | | 4/20 | | e | | | | | | 18 | | | + + + +---------+------+------+-------+ | lactulose 10 g/15 | Take 30 mLs by mouth | 120 mL | 0 | 02/0 | | Activ | | mL solution | 2 times daily. | | | 3/20 | | e | | | | | | 18 | | | + + + +---------+------+------+-------+ | magnesium oxide | Take 1 tablet by | 30 | 0 | 02/0 | | Activ | | (MAG-OX) 400 mg | mouth Daily. | tablet | | 4/20 | | e | | tablet | | | | 18 | | | + + + +---------+------+------+-------+ | spironolactone | Take 1 tablet by | 30 | 0 | 02/0 | | Activ | | (ALDACTONE) 25 mg | mouth Daily. | tablet | | 4/20 | | e | | tablet | | | | 18 | | | + + + +---------+------+------+-------+ | pantoprazole | Take 1 tablet by | 30 | 0 | 02/0 | | Activ | | (PROTONIX) 40 mg | mouth every morning | tablet | | 3/20 | | e | | tablet | (before breakfast). | | | 18 | | | + + + +---------+------+------+-------+ | potassium chloride | Take 10 mEq by mouth | | 0 | | | Activ | | (KLOR-CON) 10 MEQ | Daily. | | | | | e | | ER tablet | | | | | | | + + + +---------+------+------+-------+ Active Problems + + + | Problem | Noted Date | + + + | Accelerated hypertension | 08/27/2018 | + + + | Portal hypertension | 08/25/2018 | + + + | Altered mental status, unspecified | 12/31/2016 | + + + | Seizure due to alcohol withdrawal, uncomplicated | 11/01/2016 | + + + | Alcohol withdrawal syndrome with complication | 11/01/2016 | + + + | Alcoholic cirrhosis of liver with ascites | 11/01/2016 | + + + | Bilateral lower extremity edema | 11/01/2016 | + + + | Anemia | 09/04/2015 | + + + | Hepatic encephalopathy | 09/04/2015 | + + + | Ascites due to alcoholic cirrhosis | 09/04/2015 | + + + | Alcohol dependence with intoxication with complication | 09/04/2015 | + + + | Hyponatremia | 09/04/2015 | + + + | Malnutrition of moderate degree | 02/10/2014 | + + + | Seizure disorder, secondary | 03/24/2013 | + + + | Thrombocytopenia, unspecified | 07/29/2011 | + + + Resolved Problems + + + + | Problem | Noted | Resolved | | | Date | Date | + + + + | Acute hyponatremia | 11/02/19 | | | | 17 | 7 | + + + + | Acute hypokalemia | 11/02/19 | | | | 17 | 7 | + + + + Encounters +--------+ + + + + | Date | Type | Specialty | Care Team | Description | +--------+ + + + + | Telephone | Gastroenterology | Mitchell Stewart | Records Request | | 2020 | | | MD Conor | (Ultrasound) | +--------+ + + + + from Last 3 Months Immunizations + + + + | Name | Administration Dates | Next Due | + + + + | INFLUENZA PF | 04/10/2016, 02/10/2014 | | | QUAD(PED/ADOL/ADULT) | | | | ,PSKT or VIAL | | | + + + + | PNEUMOCOCCAL | 03/24/2013 | | | POLYSACCHARIDE | | | | 23-VALENT (PPSV23) | | | + + + + Family History + + +------+ + | Medical History | Relation | Name | Comments | + + +------+ + | Colon cancer | Neg Hx | | | + + +------+ + | Colon polyps | Neg Hx | | | + + +------+ + + +------+ + + | Relation | Name | Status | Comments | + +------+ + + | Father | | | | + +------+ + + | Mother | | | | + +------+ + + Social History + +-------+ +--------+------+ | Tobacco Use | Types | Packs/Day | Years | Date | | | | | Used | | + +-------+ +--------+------+ | Former Smoker | | | | | + +-------+ +--------+------+ + +---+---+---+ | Smokeless Tobacco: | | | | | Never Used | | | | + +---+---+---+ + + +---------+ + | Alcohol Use | Drinks/Week | oz/Week | Comments | + + +---------+ + | Yes | | | Quit 07/2019, was | | | | | drinking a 6 pack | | | | | per day | + + +---------+ + + + + | Sex Assigned at | Date Recorded | | | | + + + | Not on file | | + + + Last Filed Vital Signs + + + + + | Vital Sign | Reading | Time Taken | Comments | + + + + + | Blood Pressure | 145/80 | 09/09/2019 10:51 AM | | | | | PDT | | + + + + + | Pulse | 67 | 09/09/2019 10:51 AM | | | | | PDT | | + + + + + | Temperature | 36.3 C (97.3 F) | 09/09/2019 10:51 AM | | | | | PDT | | + + + + + | Respiratory Rate | 16 | 09/05/2018 7:31 AM | | | | | PDT | | + + + + + | Oxygen Saturation | 99% | 05/12/2017 7:50 AM | | | | | PST | | + + + + + | Inhaled Oxygen | - | - | | | Concentration | | | | + + + + + | Weight | 52.4 kg (115 lb 9.6 | 09/09/2019 10:51 AM | | | | oz) | PDT | | + + + + + | Height | 170.2 cm (5' 7") | 09/09/2019 10:51 AM | | | | | PDT | | + + + + + | Body Mass Index | 18.11 | 09/09/2019 10:51 AM | | | | | PDT | | + + + + + Plan of Treatment + + + + + | Health Maintenance | Due Date | Last | Comments | | | | Done | | + + + + + | Medication | | | | | Management | 2 | | | + + + + + | Cervical Cancer | | | | | Screening (Pap) | 2 | | | + + + + + | Breast Cancer | | | | | Screening | 7 | | | + + + + + | Med Mgmt: Cr | | 09/06/19 | | | | 0 | 19, | | | | | 09/05/19 | | | | | 19, | | | | | 09/04/19 | | | | | 19, | | | | | Addition | | | | | al | | | | | history | | | | | exists | | + + + + + | Med Mgmt: K | | 09/06/19 | | | | 0 | 19, | | | | | 09/05/19 | | | | | 19, | | | | | 09/04/19 | | | | | 19, | | | | | Addition | | | | | al | | | | | history | | | | | exists | | + + + + + | Med Mgmt: Na | | 09/06/19 | | | | 0 | 19, | | | | | 09/05/19 | | | | | 19, | | | | | 09/04/19 | | | | | 19, | | | | | Addition | | | | | al | | | | | history | | | | | exists | | + + + + + | Vaccine: Influenza | | 03/08/20 | | | (#1) | 0 | 17, | | | | | 04/10/19 | | | | | 17, | | | | | 01/05/20 | | | | | 15, | | | | | Addition | | | | | al | | | | | history | | | | | exists | | + + + + + | Vaccine: | | 10/04/19 | | | Dtap/Tdap/Td (3 - | 6 | 16, | | | Td) | | 10/18/19 | | | | | 12 | | + + + + + | Vaccine: | Completed | 03/24/20 | | | Pneumococcal 19-64 | | 13 | | + + + + + | Hepatitis C | Completed | 09/02/19 | | | Screening | | 16 | | + + + + + Results Not on filefrom Last 3 Months Insurance + +--------+ +--------+ +---------+--------+ | Payer | Benefi | Subscriber | Effect | Phone | Address | Type | | | t Plan | ID | carmela | | | | | | / | | Dates | | | | | | Group | | | | | | + +--------+ +--------+ +---------+--------+ | [employer] | IHS | [id number] | 05/12/19 | | | Indemn | | SERVICE | YELLOW | | 18-Pre | | | ity | | | HAWK | | sent | | | | + +--------+ +--------+ +---------+--------+ | [employer] [place] | MEDICA | [id number] | | [phone] | | Medica | | | [place] | | 011-Pr | 2 | | id | | | PLUS | | esent | | | | + +--------+ +--------+ +---------+--------+ | [employer] | IHS | [id number] | | | | Indemn | | SERVICE | YELLOW | | 015-Pr | | | ity | | | HAWK | | esent | | | | + +--------+ +--------+ +---------+--------+ | [employer] [place] | MEDICA | [id number] | | [phone] | | Med[place] | | | [place] | | 020-Pr | 2 | | id | | | PLUS | | esent | | | | + +--------+ +--------+ +---------+--------+ + +--------+ +--------+ + + | Guarantor Name | Accoun | Relation to | Date | Phone | Billing Address | | | t Type | Patient | of | | | | | | | | | | + +--------+ +--------+ + + | Shaila Son | Person | Self | [birth year] | [address] | | | al/Fam | | 1970 | [phone] | [place] [address] | | | deann | | | 7 (Home) | | + +--------+ +--------+ + + | Shaila Son | Person | Self [birth year] | [address] 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 | | | al/Fam | | 1971 | [phone] | [place] [address] | | | deann | | | 1 (Home) | | + +--------+ +--------+ + + Advance Directives + + + + + | Type | Date Recorded | Patient | Explanation | | | | Polishing Machine Operator | | + + + + + | Power of | 09/01/2015 12:00 | | | | Lump Roller | AM | | | + + + + + | Advance | 03/17/2015 8:01 | | | | Directive | AM | | | + + + + + + + + + + | Code Status | Date | Date | Comments | | | Activated | Inactivated | | + + + + + | Full Code | 05/04/2017 | 05/12/2017 | | | | 6:12 AM | 7:03 PM | | + + + + + + + + +---+ | | | | | + + + +---+ | Full Code | 12/31/2016 | 01/04/2017 | | | | 8:12 PM | 6:43 PM | | + + + +---+ + + + +---+ | | | | | + + + +---+ | Full Code | 11/01/2016 | 11/07/2016 | | | | 2:22 AM | 5:16 PM | | + + + +---+ + + + +---+ | | | | | + + + +---+ | Full Code | 09/01/2015 | 09/10/2015 | | | | 6:58 PM | 4:03 PM | | + + + +---+
--- OUTSIDE RECORDS SUMMARY | 2020-01-20 14:39 | XMS | Encounter Summary ---
Demographics + + + | Address | [address] | | | [place] [address] | + + + | Home Phone | | + + + | Preferred Language | Unknown | + + + | Marital Status | Single | + + + | Denominational Affiliation | 1041 | + + + | Race | or | + + + | Ethnic Group | Not or | + + + Author + + + | Author | [facility] | | | and [place] | + + + | Organization | [facility] | | | and [place] | + + + | Address | Unknown | + + + | Phone | Unavailable | + + + Support + + + + + | Name | Relationship | Address | Phone | + + + + + | Joanne Pham | ECON | [address] | | | | | [place] | | | | | [address] | | + + + + + | Viktor Son | EDDIE | Unknown | | + + + + + | Edd Glil | ECON | Unknown | | + + + + + | Conner Barber | ECON | Unknown | | + + + + + Care Team Providers + +------+ + | Care Minister Assistant Name | Role | Phone | + +------+ + | Trixie Rose PA-C | PCP | | + +------+ + Reason for Visit + +--------+ + | Reason | Onset | Comments | | | Date | | + +--------+ + | Records Request | 11/24/ | Ultrasound | | | 2020 | | + +--------+ + Encounter Details +--------+ + + + + | Date | Type | Department | Care Team | Description | +--------+ + + + + | 11/24/ | Telephone | [facility] | Mitchell Stewart | Records Request | | 2020 | | GASTROENTEROLOGY | MD Conor [address] | (Ultrasound) | | | | [address] | [address] [place], [place] | | | | | [place], [place] | [address] | | | | | [address] | | | | | | [phone] | | | +--------+ + + + + Social History + +-------+ +--------+------+ [...] on file | | + + + documented as of this encounter Functional Status + + + + | Functional Status | Response | Date of Assessment | + + + + | Are you deaf or do you have serious | No | 09/01/2015 | | difficulty hearing? | | | + + + + | Are you blind or do you have serious | No | 09/01/2015 | | difficulty seeing, even when wearing | | | | glasses? | | | + + + + | Do you have serious difficulty walking or | Yes | 09/01/2015 | | climbing stairs? (5 years old or older) | | | + + + + | Do you have difficulty dressing or bathing? | Yes | 09/01/2015 | | (5 years old or older) | | | + + + + | Because of a physical, mental, or emotional | Yes | 09/01/2015 | | condition, do you have difficulty doing | | | | errands alone such as visiting a doctor's | | | | office or shopping? [15 years old or | | | | older)] | | | + + + + + + + + | Cognitive Status | Response | Date of Assessment | + + + + | Because of a physical, mental, or emotional | No | 09/01/2015 | | condition, do you have serious difficulty | | | | concentrating, remembering, or making | | | | decisions? (5 years old or older) | | | + + + + documented as of this encounter Miscellaneous Notes Telephone Encounter - Ashlyn Raines, Legal Mediator - 11/25/2019 3:08 PM PDTReceigarth d call from [facility] and she was requesting for the ultrasound order from September to be faxed as they are reviewing Dr. Stewart's note from 09/09/19 and they noticed he wa s wanting a ultrasound done. Informed her the only order for the ultrasound I see was entered on 09/17/19 and shows final result. She then asked if we can fax it to them at [phone]. * faxed over todayElectronically signed by Ashlyn Raines, Legal Mediator at 0 3:11 PM PDTdocumented in this encounter Plan of Treatment Not on filedocumented as of this encounter Visit Diagnoses Not on filedocumented in this encounter"
--- OUTSIDE RECORDS SUMMARY | 2020-01-20 14:40 | XMS | Encounter Summary ---
Demographics + + + | Address | [address] | | | [place] [address] | + + + | Home Phone | | + + + | Preferred Language | Unknown | + + + | Marital Status | Single | + + + | [employer] Affiliation | 1041 | + + + | Race | or | + + + | Ethnic Group | Not or | + + + Author + + + | Author | [facility] | | | and [place] | + + + | Organization | [facility] | | | and [place] | + + + | Address | Unknown | + + + | Phone | Unavailable | + + + Support + + + + + | Name | Relationship | Address | Phone | + + + + + | Joanne Pham | ECON | [address] | | | | | [place] | | | | | [address] | | + + + + + | Viktor Son | EDDIE | Unknown | | + + + + + | Edd Gill | ECON | Unknown | | + + + + + | Conner Barber | ECON | Unknown | | + + + + + Care Team Providers + +------+ + | Care Cargo Handler Name | Role | Phone | + +------+ + | Trixie Rose PA-C | PCP | | + +------+ + Encounter Details +--------+ + + + + | Date | Type | Department | Care Team | Description | +--------+ + + + + | 09/16/ | Hospital | [facility] | Mitchell Stewart | Alcoholic cirrhosis | | 2019 | Encounter | [facility] | MD Conor [address] | of liver with | | | | [address] [place], [place] | ascites (HCC); | | | | [address] | [id number] | Ascites due to | | | | [place] | | alcoholic cirrhosis | | | | [id number] | | (HCC); Portal | | | | [phone] | | hypertension (HCC); | | | | | | Hepatic | | | | | | encephalopathy (HCC) | +--------+ + + + + Social [...] + + documented as of this encounter Medications at Time of Discharge + + + +---------+ + + | Medication | Sig | Dispensed | Refills | Start | End Date | | | | | | Date | | + + + +---------+ + + | folic acid 1 mg | Take 1 tablet by | 30 | 0 | 02/04/20 | | | tablet | mouth Daily. | tablet | | 18 | | + + + +---------+ + + | furosemide (LASIX) | Take 1 tablet by | 30 | 0 | 02/04/20 | | | 20 mg tablet | mouth Daily. | tablet | | 18 | | + + + +---------+ + + | lactulose 10 g/15 | Take 30 mLs by mouth | 120 mL | 0 | 02/03/20 | | | mL solution | 2 times daily. | | | 18 | | + + + +---------+ + + | lidocaine | Place 1 patch onto | | 0 | | | | (LIDODERM) 5% patch | the skin as needed. | | | | | | | Apply for 12 hours, | | | | | | | then remove for 12 | | | | | | | hours. | | | | | + + + +---------+ + + | magnesium oxide | Take 1 tablet by | 30 | 0 | /07/27 | | | (MAG-OX) 400 mg | mouth Daily. | tablet | | 18 | | | tablet | | | | | | + + + +---------+ + + | Multiple | Take 1 tablet by | | 0 | | | | Vitamins-Minerals | mouth Daily. | | | | | | (DAILY MULTIPLE | | | | | | | VITAMINS/HOME VISIT FIELD CARE MANAGER) TABS | | | | | | + + + +---------+ + + | nadolol (CORGARD) | Take 20 mg by mouth | | 0 | | | | 20 MG tablet | nightly. | | | | | + + + +---------+ + + | pantoprazole | Take 1 tablet by | 30 | 0 | 02 | | | (PROTONIX) 40 mg | mouth every morning | tablet | | 18 | | | tablet | (before breakfast). | | | | | + + + +---------+ + + | potassium chloride | Take 10 mEq by mouth | | 0 | | | | (KLOR-CON) 10 MEQ | Daily. | | | | | | ER tablet | | | | | | + + + +---------+ + + | rifAXIMin | Take 550 mg by mouth | | 0 | | | | (XIFAXAN) 550 mg | 2 times daily. To | | | | | | TABS | prevent rise in | | | | | | | ammonia | | | | | + + + +---------+ + + | spironolactone | Take 1 tablet by | 30 | 0 | 05/13/19 | | | (ALDACTONE) 25 mg | mouth Daily. | tablet | | 18 | | | tablet | | | | | | + + + +---------+ + + | thiamine (VITAMIN | Take 100 mg by mouth | | 0 | | | | B-1) 100 mg tablet | Daily. | | | | | + + + +---------+ + + documented as of this encounter Plan of Treatment Not on filedocumented as of this encounter Procedures + +--------+ + + + | Procedure Name | Priori | Date/Time | Associated Diagnosis | Comments | | | ty | | | | + +--------+ + + + | US ABDOMEN LIMITED | Routin | 09/17/2019 | Alcoholic | Results for this | | | e | 11:24 AM | cirrhosis of liver | procedure are in the | | | | PDT | with ascites (HCC) | results section. | | | | | Ascites due to | | | | | | alcoholic cirrhosis | | | | | | (HCC) Portal | | | | | | hypertension (HCC) | | | | | | Hepatic | | | | | | encephalopathy (HCC) | | + +--------+ + + + documented in this encounter Results US Abdomen Limited (09/17/2019 11:24 AM PDT) + + | Specimen | + + | | + + + + + | Impressions | Performed At | + + + | 1. Cirrhotic liver, but without focal lesion discernible 2. | [facility] | | Dense gallstones, the diffuse gallbladder wall thickening is likely | | | edematous or reactive however Signed by: Sukhwinder Low, | | | Alfredo Sign Date/Time: 09/17/2019 12:05 PM | | + + + + + + | Narrative | Performed At | + + + | ULTRASOUND ABDOMEN, LIMITED CLINICAL INFORMATION: Patient | [facility] | | with alcoholic cirrhosis. Hepatoma screening. COMPARISON: US | | | PARACENTESIS INCLUDING US GUIDANCE (09/03/2018); US ABDOMEN LIMITED | | | (09/01/2018); CT ABDOMEN AND PELVIS WITH CONTRAST (08/25/2018); | | | PROCEDURE: Evaluation of the gallbladder, if present, common bile | | | duct, liver, and right kidney. FINDINGS: Liver: Heterogeneous | | | nodular and cirrhotic liver, known from other imaging. No | | | significant ascites. No focal hepatic lesion, with some technical | | | limitations such as from the rib margin. Normal flow in the portal | | | vein towards the liver. Normal flow in the hepatic veins on color | | | flow interrogation Gallbladder/Bile Duct: Calcified stones and | | | echogenic sludge dependent distributions without dilatation or | | | distention of the gallbladder. Wall thickening between 4 and 5 mm. | | | No localizing fluid or inflammatory change. Common bile duct 3.9 | | | mm. Right kidney: 9.5 cm. No solid renal mass, hydronephrosis or | | | definitive calculi. IVC normal. No ascites. | | + + + + + | Procedure Note | + + | Jermaine, Rad Results In 09/17/2019 12:08 PM PDT | | ULTRASOUND ABDOMEN, LIMITED | | | | CLINICAL INFORMATION: | | Patient with alcoholic cirrhosis. Hepatoma screening. | | | | COMPARISON: | | US PARACENTESIS INCLUDING US GUIDANCE (09/03/2018); US ABDOMEN LIMITED | | (09/01/2018); CT ABDOMEN AND PELVIS WITH CONTRAST (08/25/2018); | | | | PROCEDURE: | | Evaluation of the gallbladder, if present, common bile duct, liver, and | | right kidney. | | | | FINDINGS: | | Liver: Heterogeneous nodular and cirrhotic liver, known from other | | imaging. No significant ascites. | | | | No focal hepatic lesion, with some technical limitations such as from | | the rib margin. Normal flow in the portal vein towards the liver. | | Normal flow in the hepatic veins on color flow interrogation | | | | Gallbladder/Bile Duct: Calcified stones and echogenic sludge dependent | | distributions without dilatation or distention of the gallbladder. | | Wall thickening between 4 and 5 mm. No localizing fluid or | | inflammatory change. Common bile duct 3.9 mm. | | | | Right kidney: 9.5 cm. No solid renal mass, hydronephrosis or definitive | | calculi. | | | | IVC normal. No ascites. | | | | IMPRESSION: | | 1. Cirrhotic liver, but without focal lesion discernible | | | | 2. Dense gallstones, the diffuse gallbladder wall thickening is likely | | edematous or reactive however | | | | | | | | Signed by: Sukhwinder Low Timothy | | Sign Date/Time: 09/17/2019 12:05 PM | + + + +---------+ + + | Performing | Address | City/State/Zipcode | Phone Number | | Organization | | | | + +---------+ + + | [facility] | | | | + +---------+ + + documented in this encounter Visit Diagnoses + + | Diagnosis | + + | Alcoholic cirrhosis of liver with ascites (HCC) Alcoholic cirrhosis of liver | + + | Ascites due to alcoholic cirrhosis (HCC) | + + | Portal hypertension (HCC) Portal hypertension | + + | Hepatic encephalopathy (HCC) Hepatic encephalopathy | + + documented in this encounter"
--- NOTE | 2020-01-20 14:49 | NUR ---
PT HAS HAD COMPANY MUCH OF THE DAY AND HAS BEEN AWAKE MORE THAN YESTERDAY. SHE IS UP IN THE CHAIR AT THIS TIME. FRESH H20 AT CHAIRSIDE
--- NOTE | 2020-01-20 16:31 | NUR ---
PT UP TO THE TOILET DOING OWN ROSELIA CARE TODAY. RETURNS TO SITTING UP IN THE CHAIR TV IS PLASTER MOLDER LIGHT IN HAND CHAIR ALARM IS SET
--- NOTE | 2020-01-20 17:01 | NUR ---
Attempted to fax chart to [facility] x 3. Called and received a different fax to send to. [phone] fax. Notified by Lisa, they are on executive order and are unable to take any pts. until .
--- NOTE | 2020-01-20 17:52 | NUR ---
PATIENT UP TO BATHROOM AND THEN TO BED, 1PA FWW. WARM BLANKETS AND FRESH WATER GIVEN. VISITOR IN ROOM. CALL LIGHT IN REACH. NO FURTHER NEEDS AT THIS TIME.
--- NOTE | 2020-01-20 18:08 | NUR ---
PT HAS A VISITOR AT THIS TIME. EATS 100% OF EVENING MEAL NO C/O NAUSEA OR DISCOMFORT.
--- NOTE | 2020-01-20 19:31 | NUR ---
REPORT RECEIVED FROM JAIME LOBO. PT LAYING IN BED, EYES CLOSED, BREATHING EVEN AND UNLABORED. CALL LIGHT WITHIN REACH. NO APPARENT NEEDS AT THIS TIME.
--- NOTE | 2020-01-20 19:45 | NUR ---
pt ATTEMPTING TO CLIMB OUT OF BED, ALARM SOUNDING. 1PA W FWW TO RESTROOM. INCONTINENT OF STOOL. ATTENDS CHANGED, VOID AND LOOSE BM IN TOILET. BACK IN BED. ALARM ON.
--- NOTE | 2020-01-20 20:50 | NUR ---
SCHEDULED MEDICATIONS ADMINISTERED, ASSESSMENT COMPLETE, VS AND I/O'S COMPLETE. IV FLUSHED. WATER REFRESHED, WARM BLANKET PROVIDED. ABD FIRM TO PALPATE, NON GUARDED OR TENDER. PT STATES NO PAIN OR DISCOMFORT. CALL LIGHT WITHIN REACH, WILL CONTINUE TO MONITOR.
--- NOTE | 2020-01-20 22:14 | NUR ---
ASSISTED PATIENT TO USE THE BATHROOM. CHANGED PANTS AND ATTENDS. PATIENT HAD LOOSE BOWEL MOVEMENT.
--- NOTE | 2020-01-20 22:20 | NUR ---
PATIENT IS BACK IN BED. PUDDING PROVIDED PER PATIENT FOR SNACK. BED ALARM ON FOR SAFETY.
--- NOTE | 2020-01-20 23:32 | NUR ---
ROUNDED ON PATIENT. LAYING IN BED WITH EYES CLOSED. BREATHING EVEN AND UNLABORED. NO APPARENT NEEDS AT THIS TIME, WILL CONTINUE TO MONITOR.
--- NOTE | 2020-01-21 00:30 | NUR ---
PATIENT ATTEMPTING TO EXIT BED, SBA PROVIDED TO AMBULATE TO BR WITH FWW. UNMEASURED VOID AND BM x1. NEW GOWN AND DEPENDS PROVIDED. PT HAND HYGIENE COMPLETE. REPOSITIONED IN BED. LIGHTS OFF, EYES CLOSED. CALL LIGHT WITHIN REACH. BED ALARM ON, SIDE RAILS UP, IN VIEW OF NURSES STATION.
--- NOTE | 2020-01-21 01:29 | NUR ---
CALL LIGHT ANSWERED. pt CONFUSED, REORIENTATION PROVIDED. WARM BLANKET PROVIDED. BED ALARM ON.
--- NOTE | 2020-01-21 03:18 | NUR ---
PATIENT EXITING BED, ALARM SOUNDING. ASSISTED WITH SBA AND FWW TO BR TO VOID. LINENS CHANGED, PANTS AND ATTENDS CHANGED. REPOSITIONED IN BED. ASSESSMENT COMPLETE. CALL LIGHT WITHIN REACH, NO OTHER NEEDS AT THIS TIME.
--- NOTE | 2020-01-21 03:51 | NUR ---
CALL LIGHT ANSWERED, WARM BLANKET PROVIDED. NO OTHER NEEDS.
--- NOTE | 2020-01-21 04:59 | NUR ---
PATIENT RESTED THIS SHIFT, AMBULATED TO BR WITH SBA AND FWW TO VOID. SEVERAL UNMEASURED VOIDS & BM. ALERT AND ORIENTED TO SELF AND PLACE. SPEECH CLEAR BUT DISORGANIZED/INAPPROPRIATE TO SITUATION. ABD FIRM AND NONTENDER. GENERALIZED EDEMA STILL PRESENT IN BACK/ABD. PT REPORTS NO PAIN OR DISCOMFORT. IV WNL, SALINE LOCKED. SCD'S AND ETELVINA HOSE IN PLACE. OVERESTIMATES ABILITY TO AMBULATE BY SELF. CONTINUED TO ENCOURAGE USE OF CALL LIGHT.
--- NOTE | 2020-01-21 05:53 | NUR ---
BED ALARM SOUNDING. pt STANDING AT SIDE OF BED NAKED, ASKING WHERE FRIEND WAS. REORIENTATION PROVIDED TO TIME OF DAY, FRIEND HOME. 1PA WITH FWW TO RESTROOM. INCONTINENT OF URINE. SMALL STOOL AND VOID IN TOILET. pt BACK IN BED, CARGOMAN IN ROOM. ENSURE DRINK PROVIDED.
--- NOTE | 2020-01-21 07:29 | NUR ---
Patient in chair watching TV, respirations even and non labored. Pt has no distress noted at this time. Pt recently up to void with MAGAZINE KEEPER assist. Bed alarm intact. Personal supplies and call light within reach. No needs.
--- NOTE | 2020-01-21 07:30 | NUR ---
PATIENT SITTING UP ON THE EDGE OF THE BED. WHITE BOARD UPDATED. PATIENT'S BREAKFAST ORDERED. CALL LIGHT WITHIN REACH. NO OTHER NEEDS AT THIS TIME
--- NOTE | 2020-01-21 09:49 | NUR ---
PATIENT RESTING IN BED. VITAL SIGNS AND I&O DONE. HIGH BLOOD PRESSURE. RN NOTIFIED. PATIENT SAID THAT MAYBE SHE WILL LIKE TO TAKE A SHOWER THIS AFTERNOON. CALL LIGHT WITHIN REACH. NO OTHER NEEDS AT THIS TIME
--- NOTE | 2020-01-21 10:00 | NUR ---
Spoke with patient, Conner friend is in the room. Patient agrees to go to [facility], I suggested [facility] in [place] and Shaila agrees. Conner agrees as he could assist her if needed. Called and spoke with Freya from [facility]. She will visit at 1 pm and eval for admission. Chart sent.
--- NOTE | 2020-01-21 13:48 | NUR ---
PATIENT IS IN BED. REQUESTS TO USE THE BR AFTER EACH MEAL TIME. ASSISTED HAND WAS. SLOWLY WAS ABLE TO STAND BY HERSLELF. PATIENT REQUESTED ICE CREAM. VISITOR IN ROOM. CALL LIGHT WITHIN REACH. NO OTHER NEEDS AT THIS TIME.
--- NOTE | 2020-01-21 13:50 | NUR ---
Notified by Freya, she needs to see this RN. Went to nursing station and notified by Freya, Shaila declined admission. To pt's room. Conner is in the room, discussed my concerns as pt is homeless and does not have anywhere to go as she cannot live with Conner. Pt declines to go to [facility]. Discussed with pt, she will be discharged to the street and she refuses to go. Conner attempted to speak with pt, but she refuses admission. Will notify Dr. Khalil.
--- NOTE | 2020-01-21 14:09 | NUR ---
Pt sitting up in chair eating a snack at this time. Pt has no distress, on room air, respirations even and non labored. Chair alarm intact. No needs at this time.
--- NOTE | 2020-01-21 15:39 | NUR ---
Patient assisted to restroom and back to bed. Pt requesting to take a nap at this time. Bed alarm intact. Personal supplies and call light within reach.
--- NOTE | 2020-01-21 17:57 | NUR ---
PATIENT IS IN ROOM. ORDERED DINNER 15 MIN AGO. CALL LIGHT IS IN REACH. NO OTHER NEEDS AT THIS TIME.
--- NOTE | 2020-01-21 20:42 | NUR ---
rEPOSITIONED IN BED, NO REQUESTS, FRESH WATER AND SODA POP GIVEN. HOB ELEVATED FOR MEDS, CALM, COOPERATIVE. SL R UPPER ARM PATENT.
--- NOTE | 2020-01-21 21:55 | NUR ---
ASSISTED EATING LEFT OVER DINNER. PATIENT FINISHED THE MASHED POTATO MIXED WITH SOME MEAT.
--- NOTE | 2020-01-22 00:48 | NUR ---
WAs trying to get out of bed, up to bsc with 1pa/fww,, voided, back to bed, ascitic abd, generalized edema abd. improved gait and stamine, still leans towards right but much improved. Bed alarm on, on room air. magen hose, heel protectors on, declined scds. errol verde
--- NOTE | 2020-01-22 02:09 | NUR ---
TRYING TO CRAWL BETWEEN RAILS, EASILY REDIRECTED, BACK TO BED. PUDIN GIVEN. TOLERATING FLUIDS WELL, CALL LIGHT AT BEDSIDE, BED ALARM ON
--- NOTE | 2020-01-22 04:17 | NUR ---
Resting, eyes closed, no resp distress, rails up, bed alarm on. turns self in bed, call light and fluids at bedside
[2020-01-22] MEDS ORDERED: PANTOPRAZOLE SO40 MG PO (09:05)
[2020-01-22] MEDS ORDERED: VITAMIN B-1100 MG PO (09:05)
[2020-01-22] MEDS ORDERED: PROPRANOLOL HCL80 M1 PO (09:05)
[2020-01-22] MEDS ORDERED: SODIUM BICARBO650 MG PO (09:05)
[2020-01-22] MEDS ORDERED: MAG6464 MG PO (09:05)
[2020-01-22] MEDS ORDERED: FUROSEMIDE20 MG PO (09:05)
[2020-01-22] MEDS ORDERED: LACTULOSE20 GM/30 M PO (09:05)
[2020-01-22] MEDS ORDERED: XIFAXAN550 MG PO (09:05)
[2020-01-22] MEDS ORDERED: DOXAZOSIN MESYLA4 MG PO (09:05)
[2020-01-22] MEDS ORDERED: SPIRONOLACTONE25 MG PO (10:05)
--- NOTE | 2020-01-22 10:06 | NUR ---
PT DISCHARGED TO HOME, PT REFUSED TO GO TO A FACILITY, SO SHE IS PLANING ON GOING HOME WITH A SANDHYA. WILL CALL SANDHYA TO SEE WHEN HE WILL COME AND PICK HERE UP.
--- OUTSIDE RECORDS SUMMARY | 2020-01-22 10:16 | XMS | Encounter Summary ---
Demographics + + + | Address | [address] | | | [place] [address] | + + + | Home Phone | | + + + | Preferred Language | Unknown | + + + | Marital Status | Single | + + + | Mormonism Affiliation | 1041 | + + + | Race | or | + + + | Ethnic Group | Not or | + + + Author + + + | Author | [facility] | | | and [place] | + + + | Organization | [facility] | | | and [place] | + + + | Address | Unknown | + + + | Phone | Unavailable | + + + Support + + + + + | Name | Relationship | Address | Phone | + + + + + | Joanne Pham | ECON | [address] | | | | | [place] | | | | | [address] | | + + + + + | Viktor Son | EDDIE | Unknown | | + + + + + | Edd Gill | ECON | Unknown | | + + + + + | Conner Barber | ECON | Unknown | | + + + + + Care Team Providers + +------+ + | Care Flatwork Assembler Name | Role | Phone | + +------+ + | Trixie Rose PA-C | PCP | | + +------+ + Reason for Visit + + + | Reason | Comments | + + + | Follow-up | Hospital f/u-alcoholic cirrhosis | + + + Evaluate & Treat (Routine) +--------+--------+ + + + + | Status | Reason | Specialty | Diagnoses / | Referred By | Referred To | | | | | Procedures | Contact | Contact | +--------+--------+ + + + + | Closed | | Gastroenterol | Diagnoses | [facility] | [facility] | | | | ogy | Hepatic | [facility] | Gastroenterol | | | | | failure, | HEALTH | ogy [address] | | | | | unspecified | CENTER | [address] | | | | | without coma | [id number] | [place], [place] | | | | | (HCC) End | [facility] | [address] | | | | | stge liver | WAY | Phone: | | | | | disease | JESSICA, | [phone] | | | | | Alcoholic | [place] | Fax: | | | | | cirrhosis of | [address] | [phone] | | | | | liver with | Phone: | | | | | | ascites | [phone] | | | | | | | Fax: | | | | | | | [phone] | | +--------+--------+ + + + + Encounter Details +--------+---------+ + + + | Date | Type | Department | Care Team | Description | +--------+---------+ + + + | 09/08/ | Office | [facility] | Mitchell Stewart | Alcoholic cirrhosis | | 2020 | Visit | GASTROENTEROLOGY | MD Conor [address] | of liver with | | | | [address] | [address] [place], [place] | ascites (HCC) | | | | [place], [place] | [address] | (Primary Dx); | | | | [address] | | Ascites due to | | | | [phone] | | alcoholic cirrhosis | | | | | | (HCC); Portal | | | | | | hypertension (HCC); | | | | | | Hepatic | | | | | | encephalopathy | | | | | | (HCC); Alcohol abuse | +--------+---------+ + + + Social History + +-------+ [...] + + documented as of this encounter Last Filed Vital Signs + + + [...] + + + | Respiratory Rate | - | - | | + + + + + | Oxygen Saturation | - | - | | + + + + + [...] | | + + + + + documented in this encounter Functional Status + + + [...] + + documented as of this encounter Progress Notes Mitchell Stewart MD - 09/09/2019 10:40 AM PDT [facility] Gastroenterology Subjective: Chief Complaint Patient presents with Follow-up Hospital f/u-alcoholic cirrhosis Patient ID: Shaila Son is a 49 y.o. female. HPI 09/09/2019 Patient with history of alcohol abuse, alcohol associated cirrhosis with ascites, episodes of hepatic encephalopathy, alcohol associated seizures and withdrawal syndrome who I last sa w when she was hospitalized a year ago in August 2018 with episode of coffee-ground emesis whic h by endoscopy was suggested related to portal hypertensive gastropathy. Small ulcer in the stomach was also seen but did not have stigmata to suggest bleeding. No significant record s available since then other than undergoing paracentesis at [facility] in [facility] on 05/02/2019. She claims no further paracentesis since then. Unfortunate ly very vague when it comes to her history. Her medication list is unclear since she says i t is kept at the facility where she is currently staying and they just provided her medicati ons to her. She insists that she quit drinking alcohol in mid July 2019. Claims her appet ite overall is well and that she has not had any further abdominal swelling. Denies any antonio erich or hematemesis. Claims she is currently staying at a facility called [facility] in [facility]. Medications are held for her and provided which is why she claims poo r knowledge of precisely what she is taking. She has dizziness but denies any true fainting episodes. Also denies further hematemesis, melena or significant abdominal pain. Claims h er weight has been stable here recently. Also describes averaging 2 bowel movements daily. Patient's medications, allergies, past medical, surgical, social and family histories were obtained and reviewed as appropriate. Allergies: Allergies Allergen Reactions Aspirin Anaphylaxis Pt unable to recall, this information came from [facility] record Ciprofloxacin Anaphylaxis, Other (See Comments), Shortness Of Breath and Rash Other reaction(s): Throat Swelling / Closing Pt. Unable to recall, this information came from [facility] record Lactose Anaphylaxis Pt unable to recall, this information came from [facility] record Septra [Sulfamethoxazole-Trimethoprim] Anaphylaxis Sulfa Antibiotics Shortness Of Breath and Rash Other reaction(s): Throat Swelling / Closing Occurred in 1999 Ibuprofen Hives Pt also has liver failure Medications: Currently not taking all of her medications. As best as can be confirmed she has stopped f urosemide, magnesium oxide, nadolol, pantoprazole and rifaximin Current Outpatient Medications Medication Sig Dispense Refill folic acid 1 mg tablet Take 1 tablet by mouth Daily. 30 tablet 0 furosemide (LASIX) 20 mg tablet Take 1 tablet by mouth Daily. 30 tablet 0 lactulose 10 g/15 mL solution Take 30 mLs by mouth 2 times daily. 120 mL 0 lidocaine (LIDODERM) 5% patch Place 1 patch onto the skin as needed. Apply for 12 hours , then remove for 12 hours. magnesium oxide (MAG-OX) 400 mg tablet Take 1 tablet by mouth Daily. 30 tablet 0 Multiple Vitamins-Minerals (DAILY MULTIPLE VITAMINS/BANBURY MILL OPERATOR) TABS Take 1 tablet by mouth Daily. nadolol (CORGARD) 20 MG tablet Take 20 mg by mouth nightly. pantoprazole (PROTONIX) 40 mg tablet Take 1 tablet by mouth every morning (before break fast). 30 tablet 0 potassium chloride (KLOR-CON) 10 MEQ ER tablet Take 10 mEq by mouth Daily. rifAXIMin (XIFAXAN) 550 mg TABS Take 550 mg by mouth 2 times daily. To prevent rise in ammonia spironolactone (ALDACTONE) 25 mg tablet Take 1 tablet by mouth Daily. 30 tablet 0 thiamine (VITAMIN B-1) 100 mg tablet Take 100 mg by mouth Daily. No current facility-administered medications for this visit. Past Medical History: Diagnosis Date Alcoholism (HCC) Anemia Anemia Cirrhosis, alcoholic (HCC) Hemorrhage of gastrointestinal tract, unspecified Hypertension Hypertension Liver disease Seizures (HCC) Seizures (HCC) Past Surgical History: Procedure Laterality Date Back fusion 2016 BACK SURGERY OTHER SURGICAL HISTORY UPPER GASTROINTESTINAL ENDOSCOPY 07/30/2011 Procedure: ESOPHAGOGASTRODUODENOSCOPY; Surgeon: Mitchell Stewart IV, MD; Location: [facility]; Service: Gastroenterology; Laterality: N/A; anesthesia assist if available since may be difficult to sedate UPPER GASTROINTESTINAL ENDOSCOPY 08/26/2018 Procedure: ESOPHAGOGASTRODUODENOSCOPY; Surgeon: Mitchell Stewart IV, MD; [facility]; Service: Gastroenterology; Laterality: N/A; Family History Problem Relation Age of Onset Colon cancer Neg Hx Colon polyps Neg Hx Social History Socioeconomic History Marital status: Single Spouse name: Not on file Number of children: Not on file Years of education: Not on file Highest education level: Not on file Occupational History Not on file Social Needs Financial resource strain: Not on file Food insecurity: Worry: Not on file Inability: Not on file Transportation needs: Medical: Not on file Non-medical: Not on file Tobacco Use Smoking status: Former Smoker Smokeless tobacco: Never Used Substance and Sexual Activity Alcohol use: Yes Comment: Quit 07/2019, was drinking a 6 pack per day Drug use: No Comment: Drug use: No Sexual activity: Not on file Lifestyle Physical activity: Days per week: Not on file Minutes per session: Not on file Stress: Not on file Relationships Social connections: Talks on phone: Not on file Gets together: Not on file Attends episcopalian service: Not on file Active member of club or organization: Not on file Attends meetings of clubs or organizations: Not on file Relationship status: Not on file Intimate partner violence: Fear of current or ex partner: Not on file Emotionally abused: Not on file Physically abused: Not on file Forced sexual activity: Not on file Other Topics Concern Not on file Social History Narrative Not on file Social History Tobacco Use Smoking Status Former Smoker Smokeless Tobacco Never Used Social History Substance and Sexual Activity Alcohol Use Yes Comment: Quit 07/2019, was drinking a 6 pack per day Social History Substance and Sexual Activity Drug Use No Comment: Drug use: No Social History Substance and Sexual Activity Sexual Activity Not on file Review of Systems Constitutional: Negative for activity change, appetite change, chills, diaphoresis, fatigue , fever and unexpected weight change. HENT: Negative for ear pain, mouth sores, nosebleeds, sore throat, trouble swallowing and v oice change. Eyes: Positive for visual disturbance (glasses). Negative for pain and redness. Respiratory: Negative for cough, choking, chest tightness, shortness of breath and wheezing . Cardiovascular: Negative for chest pain, palpitations and leg swelling. Gastrointestinal: Positive for abdominal distention, abdominal pain (sometimes) and constip ation. Negative for anal bleeding, blood in stool, diarrhea, nausea, rectal pain and vomitin g. Endocrine: Positive for heat intolerance. Negative for cold intolerance and polydipsia. Genitourinary: Negative for difficulty urinating, dysuria, frequency, hematuria, urgency an d vaginal bleeding. Musculoskeletal: Positive for back pain, gait problem, neck pain and neck stiffness. Negati ve for arthralgias, joint swelling and myalgias. Skin: Negative for color change, rash and wound. Allergic/Immunologic: Negative for environmental allergies, food allergies and immunocompro mised state. Neurological: Negative for dizziness, tremors, seizures, syncope, weakness, light-headednes s and headaches. Hematological: Negative for adenopathy. Does not bruise/bleed easily. Psychiatric/Behavioral: Negative for agitation, behavioral problems, confusion, dysphoric m ood, hallucinations and suicidal ideas. The patient is not nervous/anxious. Objective: BP 145/80 | Pulse 67 | Temp 36.3 C (97.3 F) | Ht 1.702 m (5' 7") | Wt 52.4 kg (115 lb 9.6 oz) | LMP (LMP Unknown) | BMI 18.11 kg/m Physical Exam Vital signs reviewed. General appearance: Appears very thin somewhat chronically ill-appearing but not in acute distress. Psychiatric: Appropriate affect, behavior and judgment appear normal. Neurological: Patient is alert and oriented to person, place, month of the year and presid ent. No focal neurologic deficits. No CN deficits. No definite asterixis. HEENT: Head: Normocephalic and Atraumatic. Eyes: No conjunctiva injection. EOM Intact. PERRL. No scleral icterus. Neck: Neck supple. No tracheal deviation present. No cervical adenopathy. Cardiovascular: Regular rate and rhythm, no murmur heard. Pulmonary/Chest: Clear bilaterally, no wheezes. Abdominal: Normal active bowel sounds. Soft, protuberant, no mass or hepatosplenomegaly. No tenderness. No involuntary guarding or rebound present. Musculoskeletal: Very thin muscle mass. No pedal edema. Skin: Skin is warm and dry. No rash noted. Labs: No recent labs available Lab Results Component Value Date NA 136 09/05/2018 K 3.8 09/05/2018 CL 108 09/05/2018 CO2 21 (L) 09/05/2018 ANIONGAP 11 09/05/2018 GLU 82 05/12/2017 BUN 13 09/05/2018 CREA 0.68 05/12/2017 GFRNONAA >60 05/12/2017 CALCIUM 7.8 (L) 09/05/2018 Lab Results Component Value Date ALBUMIN 1.6 (L) 09/05/2018 BILITOT 0.6 09/05/2018 TOTALPROTEIN 4.8 (L) 05/07/2017 AST 37 09/05/2018 ALT 15 09/05/2018 ALKPHOS 114 (H) 05/07/2017 Lab Results Component Value Date WBC 4.54 09/05/2018 HGB 8.4 (L) 09/05/2018 HCT 26.7 (L) 05/09/2017 MCV 93.3 09/05/2018 LABPLAT 153 09/05/2018 PLT 102 (L) 05/09/2017 LIPASE 29 05/03/2017 AMYLASE 149 (H) 10/31/2016 INR 1.3 09/03/2018 Diagnostic imaging: No recent imaging studies available Data Review: Reviewed recent pertinent notes in electronic chart Assessment and Plan: ICD-10-CM ICD-9-CM 1. Alcoholic cirrhosis of liver with ascites (HCC) K70.31 571.2 US Abdomen Limited CBC with Differential Protime INR Comprehensive Metabolic Panel Alpha Fetoprotein, Tumor Marker Sodium, Urine, Random 2. Ascites due to alcoholic cirrhosis (HCC) K70.31 571.2 US Abdomen Limited CBC with Differential Protime INR Comprehensive Metabolic Panel Alpha Fetoprotein, Tumor Marker Sodium, Urine, Random 3. Portal hypertension (HCC) K76.6 572.3 US Abdomen Limited CBC with Differential Protime INR Comprehensive Metabolic Panel Alpha Fetoprotein, Tumor Marker Sodium, Urine, Random 4. Hepatic encephalopathy (HCC) K72.90 572.2 US Abdomen Limited CBC with Differential Protime INR Comprehensive Metabolic Panel Alpha Fetoprotein, Tumor Marker Sodium, Urine, Random 5. Alcohol abuse F10.10 305.00 According to the patient she is now abstinent of alcohol. Unfortunately very unclear as to exactly what medication she is taking. In particular whether she is on her diuretics. She needs abdominal ultrasound at this point for hepatoma screening and can assess status o f the ascites. No overt encephalopathy though will remain prone towards such. Counseled that she can incr ease lactulose as needed if having worsening fatigue or confusion. At some point needs repeat EGD to reevaluate the upper GI tract and screen for development of varices. Recommendations 1. Abdominal ultrasound. 2. Labs to include CBC, CMP, INR, AFP NM also urine sodium. 3. We will contact her care facility and see if we can get a more accurate list of her cur rent active medications. 4. Congratulated on being abstinent of alcohol and strongly encouraged her to remain sober . 5. Consider repeat EGD sometime this year. 6. Low-sodium diet ideally 2 g restricted though may be difficult to do where she currentl y is staying. 7. Offer follow-up visit in 3 to 4 months. Tod Stewart IV, M.D. [facility] Gastroenterology 09/10/2019 This note was dictated using Poly[employer] voice recognition software. Document was reviewed at ti me of dictation but [id number] errors may be present. Please call with any questions or c larifications. TIME: established patient - total direct [id number] time of at least 25 minutes spe nt in reviewing information and discussion with greater than 50% of that time spent in couns eling or coordinating of care. documented in thi s encounter Plan of Treatment + +------+--------+ + + | Name | Type | Priori | Associated Diagnoses | Order Schedule | | | | ty | | | + +------+--------+ + + | CBC with | Lab | Routin | Alcoholic | 1 Occurrences | | Differential | | e | cirrhosis of liver | starting 09/09/2019 | | | | | with ascites (HCC) | until 09/08/2020 | | | | | Ascites due to | | | | | | alcoholic cirrhosis | | | | | | (HCC) Portal | | | | | | hypertension (HCC) | | | | | | Hepatic | | | | | | encephalopathy (HCC) | | + +------+--------+ + + | Protime INR | Lab | Routin | Alcoholic | 1 Occurrences | | | | e | cirrhosis of liver | starting 09/09/2019 | | | | | with ascites (HCC) | until 09/08/2020 | | | | | Ascites due to | | | | | | alcoholic cirrhosis | | | | | | (HCC) Portal | | | | | | hypertension (HCC) | | | | | | Hepatic | | | | | | encephalopathy (HCC) | | + +------+--------+ + + | Comprehensive | Lab | Routin | Alcoholic | 1 Occurrences | | Metabolic Panel | | e | cirrhosis of liver | starting 09/09/2019 | | | | | with ascites (HCC) | until 09/08/2020 | | | | | Ascites due to | | | | | | alcoholic cirrhosis | | | | | | (HCC) Portal | | | | | | hypertension (HCC) | | | | | | Hepatic | | | | | | encephalopathy (HCC) | | + +------+--------+ + + | Alpha Fetoprotein, | Lab | Routin | Alcoholic | 1 Occurrences | | Tumor Marker | | e | cirrhosis of liver | starting 09/09/2019 | | | | | with ascites (HCC) | until 09/08/2020 | | | | | Ascites due to | | | | | | alcoholic cirrhosis | | | | | | (HCC) Portal | | | | | | hypertension (HCC) | | | | | | Hepatic | | | | | | encephalopathy (HCC) | | + +------+--------+ + + | Sodium, Urine, | Lab | Routin | Alcoholic | 1 Occurrences | | Random | | e | cirrhosis of liver | starting 09/09/2019 | | | | | with ascites (HCC) | until 09/08/2020 | | | | | Ascites due to | | | | | | alcoholic cirrhosis | | | | | | (HCC) Portal | | | | | | hypertension (HCC) | | | | | | Hepatic | | | | | | encephalopathy (HCC) | | + +------+--------+ + + documented as of this encounter Results US Abdomen Limited (09/17/2019 [...] + + | Jermaine, Rad Results In - 09/17/2019 12:08 PM PDT | | ULTRASOUND [...] Alcoholic cirrhosis of liver with ascites (HCC) - Primary Alcoholic cirrhosis of | | liver | + + | Ascites due to alcoholic cirrhosis (HCC) | + + | Portal hypertension (HCC) Portal hypertension | + + | Hepatic encephalopathy (HCC) Hepatic encephalopathy | + + | Alcohol abuse Alcohol abuse, unspecified | + + documented in this encounter
--- NOTE | 2020-01-22 10:30 | NUR ---
Pt cont. to decline placement. Plans on dc as homeless with stay with Conner for 14 days until she can no longer reside with him.
--- NOTE | 2020-01-22 10:50 | NUR ---
PT UP TO THE BEDSIDE COMMODE IPA TO THE COMMODE. PT VOIDED AND THEN BACK TO BED.
--- NOTE | 2020-01-22 10:50 | NUR ---
PT HAS BEEN DISCHARGED TO HOME, HER SANDHYA IS COMING TO PICK HER UP AND DISCHARGE INSTRUCTIONS WILL BE PROVIDED TO HIM ALSO SO THAT THEY ALL UNDERSTAND.
--- NOTE | 2020-01-22 11:17 | NUR ---
PT DISCHARGED TO HOME WITH HER SANDHYA. HE REPORTS THAT SHE CAN ONLY STAY 14 DAYS WITH HIM AND THEN SHE WILL LEAVE. EXPLAINED TO PT NOT TO USE ETOH, "YES" SANDHYA STATES THAT SHE WILL DRINK AGAIN.
[2020-01-23] MEDS ORDERED: XIFAXAN550 MG PO (12:55)
[2020-01-23] MEDS ORDERED: PROPRANOLOL HCL80 M1 PO (12:56)
[2020-01-23] MEDS ORDERED: PANTOPRAZOLE SO40 MG PO (12:56)
[2020-01-23] MEDS ORDERED: ALDACTONE25 MG PO (12:56)
== END 2020-01-22 11:15 | disposition home or self-care (01) | DRG 897 ==
LOC: ED 07:52 → MS 14:53 → CCU 14:53 → MS 01-18 16:45
PROVIDERS: ADMIT Internal Medicine; ATTEND Internal Medicine
PROC: 0W9G3ZX Drainage of Peritoneal Cavity, Percutaneous Approach, Diagnostic (ICD-10-PCS; principal; 2020-01-12)
DX: F10.231 Alcohol dependence with withdrawal delirium (principal); N39.0 Urinary tract infection, site not specified; E87.2 Acidosis; D61.818 Other pancytopenia; E87.1 Hypo-osmolality and hyponatremia; K76.6 Portal hypertension; Z20.828 Contact with and (suspected) exposure to other viral communicable diseases; K72.90 Hepatic failure, unspecified without coma; B96.20 Unspecified Escherichia coli [E. coli] as the cause of diseases classified elsewhere; R56.9 Unspecified convulsions; I10 Essential (primary) hypertension; K70.30 Alcoholic cirrhosis of liver without ascites; D69.6 Thrombocytopenia, unspecified; K21.9 Gastro-esophageal reflux disease without esophagitis; D64.9 Anemia, unspecified; E86.1 Hypovolemia; E83.42 Hypomagnesemia; D73.1 Hypersplenism; Z59.0 Homelessness; Z87.891 Personal history of nicotine dependence; Z88.6 Allergy status to analgesic agent; Z88.1 Allergy status to other antibiotic agents; Z88.2 Allergy status to sulfonamides; Z88.8 Allergy status to other drugs, medicaments and biological substances
CPT/HCPCS: 36415; 51701; 51798; 71045; 80048; 80053; 81001; 82140; 83605; 83690; 83735; 84100; 85025; 85610; 87040; 87070; 87077; 87088; 87186; 87205; 89051; 93005; 93010; 97110; 97116; 97163; 97165; 97535; 99285-25; C9113; C9803; G0480; J0690; J0696; J2060; J2405; J3411; J3475; J3480; J7030; J7060; J7120; J7121; U0003

== ENCOUNTER 2020-01-23 10:23 | Observation (INO) | payer OTHER ==
[~2020-01-23] VITALS: Ht 170.2 cm; Wt 61.2 kg
--- OUTSIDE RECORDS SUMMARY | ~2020-01-23 | XMS | Clinical Summary ---
Demographics + + + | Address | [address] | | | [place] [address] | + + + | Home Phone | | + + + | Preferred Language | Unknown | + + + | Marital Status | Single | + + + | Confucianist Affiliation | 1041 | + + + | Race | or | + + + | Ethnic Group | Not or | + + + Author + + + | Author | [facility] | | | and [place] | + + + | Organization | [facility] | | | and [place] | + + + | Address | Unknown | + + + | Phone | Unavailable | + + + Support + + + + + | Name | Relationship | Address | Phone | + + + + + | Joanne Pham | ECON | [address] | | | | | [place] | | | | | [address] | | + + + + + | Viktor Son | EDDIE | Unknown | | + + + + + | Edd Gill | ECON | Unknown | | + + + + + | Conner Barber | ECON | Unknown | | + + + + + Care Team Providers + +------+ + | [facility] Well[facility] Coordinator Name | Role | Phone | + [...] | | | | | | | VITAMINS/MARKETING OUTREACH COORDINATOR) TABS | | | | | | [...] | | + +--------+ +--------+ +---------+--------+ | [employer] | [employer] | [id number] | 05/12/19 | | | Indemn | | SERVICE | YELLOW | | 18-Pre | | | ity | | | HAWK | | sent | | | | + +--------+ +--------+ +---------+--------+ | [employer] | MEDICA | [id number] | | [phone] | | Medica | | | [place] | | 011-Pr | 2 | | id | | | PLUS | | esent | | | | + +--------+ +--------+ +---------+--------+ | [employer] | IHS | [id number] | | | | Indemn | | SERVICE | YELLOW | | 015-Pr | | | ity | | | HAWK | | esent | | | | + +--------+ +--------+ +---------+--------+ | [employer]ICAID [place] | MEDICA | [id number] | | [phone] | | Medica | | | ID [...] Person | Self | [birth year] | [address] | | | al/Fam | | 1970 | [phone] | [place] [address] | | | deann | | | 7 (Home) | | + +--------+ +--------+ + + | Shaila Son | Person | Self | [birth year] | [address] 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
--- OUTSIDE RECORDS SUMMARY | ~2020-01-23 | XMS | Encounter Summary ---
Demographics + + + | Address | [address] | | | [place] [address] | + + + | Home Phone | | + + + | Preferred Language | Unknown | + + + | Marital Status | Single | + + + | Tenriism Affiliation | [id number] | + + + | Race | or | + + + | Ethnic Group | Not or | + + + Author + + + | Author | [facility] | | | and [place] | + + + | Organization | [facility] | | | and [place] | + + + | Address | Unknown | + + + | Phone | Unavailable | + + + Support + + + + + | Name | Relationship | Address | Phone | + + + + + | Joanne Pham | ECON | [address] | | | | | [place] | | | | | [address] | | + + + + + | Viktor Son | EDDIE | Unknown | | + + + + + | Edd Gill | ECON | Unknown | | + + + + + | Conner Barber | ECON | Unknown | | + + + + + Care Team Providers + +------+ + | Care Plant Specialist Name | Role | Phone | + +------+ + | Trixie Rose PA-C | PCP | | + +------+ + Reason for Visit + + + | Reason | Comments | + + + | Seizure (Adult - | | | Alcoholic) | | + + + Auth/Cert +--------+--------+ + + + + | Status | Reason | Specialty | Diagnoses / | Referred By | Referred To | | | | | Procedures | Contact | Contact | +--------+--------+ + + + + | | | | Diagnoses | | | | | | | Seizure due | | | | | | | to alcohol | | | | | | | withdrawal, | | | | | | | uncomplicate | | | | | | | d (HCC) | | | | | | | Alcohol | | | | | | | withdrawal, | | | | | | | uncomplicate | | | | | | | d (HCC) | | | | | | | Ascites due | | | | | | | to alcoholic | | | | | | | cirrhosis | | | | | | | (HCC) | | | | | | | Altered | | | | | | | mental | | | | | | | status, | | | | | | | unspecified | | | | | | | Anemia, | | | | | | | unspecified | | | | | | | type | | | | | | | Pneumonia | | | | | | | due to | | | | | | | infectious | | | | | | | organism, | | | | | | | unspecified | | | | | | | laterality, | | | | | | | unspecified | | | | | | | part of lung | | | | | | | | | | +--------+--------+ + + + + Encounter Details +--------+ + + + + | Date | Type | Department | Care Team | Description | +--------+ + + + + | 12/31/ | Hospital | [facility] | Laci Morrison, | Alcohol withdrawal, | | 2017 - | Encounter | [facility] ICU [address] | [address] | uncomplicated (HCC) | | | | [place], | [place], [place] | (Primary Dx); | | 01/04/ | | [place] [address] | [id number] | Pneumonia due to | | 2017 | | [phone] | | infectious organism, | | | | | Robel Wilcox, | unspecified | | | | | [address] | laterality, | | | | | [place], [place] | unspecified part of | | | | | [address] | lung; Altered mental | | | | | | status, | | | | | [place], | unspecified; Seizure | | | | | [place], [address] | due to alcohol | | | | | [address] [place] | withdrawal, | | | | | [place] [address] | uncomplicated (HCC); | | | | | [phone] | Anemia, unspecified | | | | | | type; Ascites due | | | | | | to alcoholic | | | | | | cirrhosis (HCC); SBP | | | | | | (spontaneous | | | | | | bacterial | | | | | | peritonitis) (HCC); | | | | | | Alcohol dependence | | | | | | with intoxication | | | | | | with complication | | | | | | (HCC); Hepatic | | | | | | encephalopathy | | | | | | (HCC); Hyponatremia | +--------+ + + + + Social [...] + + +---------+ + | Yes | 6 Cans of beer | 6.0 | alcoholism, | | | | | currently drinks 6 | | | | | cans of beer daily | + + +---------+ + + + [...] + + + | Blood Pressure | 127/78 | 01/04/2017 3:41 PM | | | | | PDT | | + + + + + | Pulse | 86 | 01/04/2017 3:41 PM | | | | | PDT | | + + + + + | Temperature | 36.6 C (97.9 F) | 01/04/2017 3:41 PM | | | | | PDT | | + + + + + | Respiratory Rate | 18 | 01/04/2017 3:41 PM | | | | | PDT | | + + + + + | Oxygen Saturation | 99% | 01/04/2017 3:41 PM | | | | | PDT | | + + + + + | Inhaled Oxygen | - | - | | | Concentration | | | | + + + + + | Weight | 61.2 kg (134 lb 14.7 | 01/04/2017 4:04 AM | | | | oz) | PDT | | + + + + + | Height | 170.2 cm (5' 7") | 12/31/2016 8:11 PM | | | | | PDT | | + + + + + | Body Mass Index | 21.13 | 12/31/2016 8:11 PM | | | | | PDT | [...] + + documented as of this encounter Discharge Summaries Grant Lomas MD - 01/04/2017 8:53 AM PDT [facility] DISCHARGE SUMMARY Pt. Name/Age/: Shaila Son 46 y.o. 1970 Date of Admission: 12/31/2016 Date of Discharge: 01/04/2017 Admitting Physician: Fiona Cornejo MD Primary Care Provider: Trixie Rose PA-C Discharging Physician: Grant Lomas MD DISCHARGE DIAGNOSES: Active Hospital Problems Diagnosis Seizure due to alcohol withdrawal, uncomplicated Altered mental status with elevated ammonia at 77 on admission Anemia Ascites due to alcoholic cirrhosis Fevers 103 on admission without source identified DISCHARGE MEDICATIONS: Discharge Medications New Medications Details carvedilol 6.25 mg tablet Take 1 tablet by mouth 2 times daily (with breakfast & dinner). aka: COREG gabapentin 300 mg capsule Take 1 pill at bedtime, increasing as tolerated to 1 pill three times daily aka: NEURONTIN Changed Medications Details famotidine 40 MG tablet Take 1 tablet by mouth nightly. What changed: when to take this aka: PEPCID magnesium oxide 400 mg tablet Take 1 tablet by mouth Daily. What changed: when to take this aka: MAG-OX spironolactone 25 mg tablet Take 2 tablets by mouth Daily. What changed: when to take this aka: ALDACTONE Unchanged Medications Details adult multivitamin with minerals/iron Tabs Take 1 tablet by mouth Daily. folic acid 1 mg tablet Take 1 tablet by mouth Daily. lactulose 10 g/15 mL solution Take 15 mLs by mouth Daily. thiamine 100 mg tablet Take 1 tablet by mouth Daily. aka: VITAMIN B-1 Discontinued Medications furosemide 20 mg tablet aka: LASIX polyethylene glycol packet aka: MIRALAX potassium chloride 10 mEq CR capsule aka: MICRO-K DISCHARGE INSTRUCTIONS: Follow-up Information Trixie Rose PA-C. Go on 01/09/2017. Specialty: Internal Medicine Why: Appointment time is 12:30 Contact information: [id number] [place] [id number] RESULTS: Results for SHAILA SON ( ) as of 01/04/2017 08:45 Ref. Range 01/04/2017 05:07 NA Latest Ref Range: 136 - 149 mmol/L 131 (L) K Latest Ref Range: 3.5 - 5.1 mmol/L 3.8 Chloride Latest Ref Range: 98 - 109 mmol/L 106 Carbon dioxide Latest Ref Range: 24 - 31 mmol/L 19 (L) ANION GAP Latest Ref Range: 3 - 16 mmol/L 6 GLUCOSE Latest Ref Range: 70 - 109 mg/dL 90 BUN Latest Ref Range: 7 - 18 mg/dL 9 Creatinine Latest Ref Range: 0.60 - 1.30 mg/dL 0.47 (L) BUN/CREA Unknown 19.1 ALBUMIN Latest Ref Range: 3.2 - 5.0 g/dL 1.7 (L) Albumin/Globulin ratio Latest Ref Range: 0.8 - 2.0 0.4 (L) Total protein Latest Ref Range: 6.0 - 7.8 g/dL 5.7 (L) EGFR IF NOT Latest Ref Range: >=60 mL/min/1.73m2 >60 Calcium Latest Ref Range: 8.3 - 10.5 mg/dL 7.7 (L) MG Latest Ref Range: 1.8 - 2.5 mg/dL 1.7 (L) ALK PHOS Latest Ref Range: 40 - 110 U/L 150 (H) ALT (SGPT) (REF) Latest Ref Range: 6 - 45 U/L 18 AST (SGOT) (REF) Latest Ref Range: 10 - 42 U/L 46 (H) BILIRUBIN TOTAL Latest Ref Range: 0.1 - 1.5 mg/dL 1.0 GLOBULIN Latest Ref Range: 2.1 - 3.8 g/dL 4.0 (H) PROCALCITONIN Latest Ref Range: <=0.50 ng/mL 0.16 Results for SHAILA SON ( ) as of 01/04/2017 08:45 Ref. Range 01/04/2017 05:07 WBC Latest Ref Range: 4.0 - 11.0 K/uL 4.6 WBC morphology Unknown Normal RBC: Latest Ref Range: 3.70 - 5.20 M/uL 2.89 (L) Hgb Latest Ref Range: 11.5 - 16.0 g/dL 9.4 (L) Hct, Final Latest Ref Range: 34.0 - 47.0 % 27.3 (L) MCV Latest Ref Range: 83.0 - 101.0 fL 94.5 MCH Latest Ref Range: 28.0 - 35.0 pg 32.3 MCHC Latest Ref Range: 32.0 - 36.0 g/dL 34.2 RDW-CV Latest Ref Range: <15.0 % 15.6 (H) Platelet Count Latest Ref Range: 140 - 440 K/uL 118 (L) Results for SHAILA SON ( ) as of 01/04/2017 08:45 Ref. Range 01/01/2017 11:52 BF Appearance Latest Ref Range: Clear Clear BF % Eosinophils Latest Units: % 9 Albumin, Body Fluid Latest Units: g/dL <1.0 BF RBC Latest Units: cells/uL 1,383 BF Nucleated Cells Latest Ref Range: 0 - 150 cells/uL 800 (H) BF % Macro/Pierce Latest Units: % 44 BF % Neutrophils Latest Units: % 2 Volume, Fluid Latest Units: mL 50 BF % Lymphocytes Latest Units: % 44 BF Color Unknown Light Yellow Shaila Son (MR # [id number]) Culture, Body Fluid, Aerobe [[id number]] (Order #: [id number]) Qty: 1 Culture, Body Fluid, Aerobe (Order [id number]) Culture, Body Fluid, Anaerobe (Order [id number]) Culture, Body Fluid, Aerobe Order: [id number] - Part of Panel Order [id number] Status: Preliminary result Visible to patient: No (Not Released) Next appt: None Culture No growth to date Stain 1+ White Blood Cells No organisms seen Resulting Agency: [facility] Specimen Collected: 01/01/17 11:51 Culture, Blood [[id number]] (Order #: [id number]) Qty: 1 Culture, Blood Order: [id number] Status: Preliminary result Visible to patient: No (Not Released) Next appt: None Culture Positive Blood Culture Staphylococcus epidermidis Probable contaminant Stain Gram positive cocci in clusters 1 of 3 bottles positive Resulting Agency: [facility] Specimen Collected: 12/31/16 15:21 Last Resulted: 01/02/17 15:47 Results for SHAILA SON ( ) as of 01/04/2017 08:45 Ref. Range 12/31/2016 17:22 Color, UA Latest Ref Range: Light Yellow, Yellow, Straw Yellow Clarity, UA Latest Ref Range: Clear Clear Specific [place] Latest Ref Range: 1.001 - 1.030 1.009 PH UA Latest Ref Range: 5.0 - 8.0 8.0 Glucose, UA Latest Ref Range: Negative Negative Ketones, UA Latest Ref Range: Negative Negative Protein, UA Latest Ref Range: Negative 100 mg/dL (A) Blood, UA Latest Ref Range: Negative Moderate (A) Bilirubin, UA Latest Ref Range: Negative Negative Nitrite, UA Latest Ref Range: Negative Negative UROBILINOGEN UA Latest Ref Range: 0.2 mg/dL, 1.0 mg/dL, Negative Negative Leukocyte esterase, UA Latest Ref Range: Negative Negative WBC UA Latest Ref Range: 0 - 2 /HPF 0-2 RBC UA Latest Ref Range: 0 - 2 /HPF 15-25 (A) Squamous epithelial, UA Latest Ref Range: 0 - 2 /LPF 2-5 (A) BACTERIA UA Latest Ref Range: Negative /HPF 1+ (A) URIC ACID CRYSTALS Latest Ref Range: None Seen /HPF Few (A) Mucus, UA Latest Ref Range: Negative /LPF Present (A) Culture, Urine [[id number]] (Order #: [id number]) Qty: 1 Culture, Urine Order: [id number] Status: Preliminary result Visible to patient: No (Not Released) Next appt: None Culture 10,000 CFU/ml Staphylococcus coagulase negative Identification and susceptibility to follow. Resulting Agency: [facility] Specimen Collected: 12/31/16 17:22 Last Resulted: 01/03/17 11:58 EEG obtained 01/04/2017, results currently pending HOSPITAL COURSE: Please refer to the H&P for full details. In short this 46-year-old female with a history of alcohol abuse and alcohol withdrawal seizures, cirrhosis with a history of ascites and e levated pneumonias, hypertension and anemia, presented following a tonic-clonic seizure at er home. She reported that she drinks at least a sixpack of beer a day and that her last dr ink was on the morning of admission. Her blood level on presentation was 100. She stated w hen she tries to discontinue alcohol she tends to have seizures. Discussion with her she do es believe she's had head trauma in the past. She's never been diagnosed with a seizure dis order. Her spouse reports that for 7 years that he has known her that she has had seizures and in discussion in the past year she has had 2 episodes where she had 3 seizures recurrent . The patient's additional findings on admission was having temperature of 103. Her chest x -ray was normal and urinalysis was unremarkable. The patient had a paracentesis which was d iagnostic and no growth. Cultures were obtained and she was placed on ceftriaxone pending c ulture results. The patient rapidly defervesced. One of 3 culture bottles grew coagulase-n egative staph which was thought to be a contaminant. The patient did have 10,000 colonies o f coagulase-negative staph in the urine without pyuria and thus I did send off repeat blood cultures which are pending at the time of this dictation. The patient's white blood cell co unt and Procalcitonin were normal and with with defervesced since and no further fevers I di d not feel antibiotics were dictated for continuance and thus discontinued them pending furt her blood culture results. Remained clinically stable. Because of her history of recurrent seizures I did obtain EEG the results of which are pending at the time of discharge. I've encouraged her to see her PCP and follow-up in one week and I've encouraged her to consider alcohol treatment. She states she has been in treatment before. Services consult is pendin g prior to discharge relative to further discussions with the patient with respect alcohol t reatment. The patient on admission had a pneumonia 77 and was noncompliant her lactulose. I did resume her lactulose and with relative hypertension initiated carvedilol 6.25 mg twice daily will be helpful relative to portal pressures. She has a chronic anemia which was sta ble and thus was not further assessed in the setting of alcoholic cirrhosis. I did recommen d to the patient thiamine and folic acid. We did not reinstitute her diuretic pending her f ollow-up with her PCP noting that diuretic is for ascites and currently is not problematic a nd by history was not being taken at the time of presentation. Note, the patient did report a desire to work on cessation of alcohol and in small studies gabapentin, and antiepileptic agent, has been shown to reduce cravings for alcohol. At this point pending follow-up with her PCP I'm going to start gabapentin 300 mg at at bedtime inc reasing as tolerated to 1 pill 3 times daily. If tolerated this could be accelerated 600 mg 3 times daily which may offer her some benefit relative to reduction in alcohol cravings an d some seizure prophylaxis. PHYSICAL EXAM: Temp: 36.6 C (97.9 F), Pulse: 86, Resp: 18, BP: 127/78, SpO2 99 % on room air at flow r ate L/min Temp Min: 36.6 C (97.9 F) Max: 37.1 C (98.8 F) Weight: 55.4 kg (122 lb 1.6 oz) Patient seen and examined by me on discharge day Greater than 30 minutes were spent on discharge and coordination of post-hospital care. Electronically signed by: Grant Lomas MD, 01/04/2017 16:13 [facility] Portions of this chart may have been created with [employer] voice recognition software. Occasi onal wrong-word or sound-alike substitutions may have occurred due to the inherent gallardo itations of voice recognition software. Please read the chart carefully and recognize, using context, where these substitutions have occurred documented in this encounter Medications at Time of Discharge + + + +---------+ + + | Medication | Sig | Dispensed | Refills | Start | End Date | | | | | | Date | | + + + +---------+ + + | carvedilol (COREG) | Take 1 tablet by | 60 | 0 | 01/05/20 | | | 6.25 mg tablet | mouth 2 times daily | tablet | | 17 | 8 | | | (with breakfast & | | | | | | | dinner). | | | | | + + + +---------+ + + | famotidine | Take 1 tablet by | 30 | 0 | 01/05/20 | | | (PEPCID) 40 MG | mouth nightly. | tablet | | 17 | 8 | | tablet | | | | | | + + + +---------+ + + | folic acid 1 mg | Take 1 tablet by | 30 | 0 | 01/05/20 | | | tablet | mouth Daily. | tablet | | 17 | 8 | + + + +---------+ + + | gabapentin | Take 1 pill at | 90 | 0 | 01/05/20 | | | (NEURONTIN) 300 mg | bedtime, increasing | capsule | | 17 | 8 | | capsule | as tolerated to 1 | | | | | | | pill three times | | | | | | | daily | | | | | + + + +---------+ + + | lactulose 10 g/15 | Take 15 mLs by mouth | 236 mL | 0 | 01/05/20 | | | mL solution | Daily. | | | 17 | 8 | + + + +---------+ + + | magnesium oxide | Take 1 tablet by | 60 | 0 | 01/05/20 | | | (MAG-OX) 400 mg | mouth Daily. | tablet | | 17 | 8 | | tablet | | | | | | + + + +---------+ + + | Multiple | Take 1 tablet by | 30 | 0 | 11/08/19 | | | Vitamins-Minerals | mouth Daily. | tablet | | 17 | 8 | | (ADULT MULTIVITAMIN | | | | | | | WITH MINERALS/IRON) | | | | | | | TABS | | | | | | + + + +---------+ + + | spironolactone | Take 2 tablets by | 60 | 0 | 01/05/20 | | | (ALDACTONE) 25 mg | mouth Daily. | tablet | | 17 | 8 | | tablet | | | | | | + + + +---------+ + + | thiamine (VITAMIN | Take 1 tablet by | 30 | 0 | 11/08/19 | | | B-1) 100 mg tablet | mouth Daily. | tablet | | 17 | 8 | + + + +---------+ + + documented as of this encounter Progress Notes Grant Lomas MD - 01/03/2017 8:14 PM PDT [facility] Hospitalist Progress Note Shaila Son is a 46 y.o. female ASSESSMENT and PLAN: Active Hospital Problems Altered mental status, unspecified Appears currently at baseline. Patient had history of tonic-clonic seizure on admission as sociated with alcohol withdrawal. Patient reports a history of most of her seizures being a ssociated with attempts to stop drinking alcohol. She is not certain whether all of these a re currently a timeframe of their occurrence. She does state that she's had head trauma in the past. I am going to obtain EEG prior to discharge. *Seizure due to alcohol withdrawal, uncomplicated Good control of alcohol withdrawal on lorazepam. Anemia Fever to 103 on admission without obvious source Patient with rapid defervescence following admission. Paracentesis yesterday was abnormal with respect to WBC count of 800 and otherwise did not have a neutrophilia or significant pr otein. Glucose was not obtained on the specimen. Culture thus far is negative. Patient's cultures thus far only positive for 1 of 3 bottles in one culture of coag negativ e staph. Repeat urine does have 10,000 colonies of coagulase negative staph but I still do not believe this represents bacteremia from an ear infection given the mild pyuria. With he r wrist because of her liver disease I am going to repeat blood cultures in a.m., check a CB C, and Procalcitonin. SUBJECTIVE: No complaints of abdominal pain or nausea. No shortness of breath or chest discomfort. She reports good control of withdrawal symptoms VITALS: Temp: 37 C (98.6 F), Pulse: 99, Resp: 20, BP: (!) 155/96, SpO2 100 % on room air at shahla w rate L/min Temp Min: 37 C (98.6 F) Max: 37.3 C (99.1 F) Weight: 55.4 kg (122 lb 1.6 oz) Intake/Output Summary (Last 24 hours) at 01/03/172013 Last data filed at 01/03/17 1800 Gross per 24 hour Intake 2643 ml Output 1476 ml Net 1167 ml PHYSICAL EXAM: Cardiovascular: Rate and rhythm Respiratory: Clear bilaterally Abdomen: Soft without tenderness DIAGNOSTIC STUDIES: Available data and images were reviewed personally. Significant results and findings are a ddressed here or in the Assessment and Plan. Lab Results Component Value Date HGB 9.9 (L) 01/03/2017 HCT 29.1 (L) 01/03/2017 PLT 127 (L) 01/03/2017 PLT Decreased (A) 01/03/2017 WBC 5.1 01/03/2017 Lab Results Component Value Date NA 128 (L) 01/03/2017 K 3.6 01/03/2017 CL 105 01/03/2017 CO2 18 (L) 01/03/2017 CREA 0.51 (L) 01/03/2017 BUN 5 (L) 01/03/2017 MG 1.2 (L) 01/03/2017 PHOS 5.1 (H) 11/07/2016 BNP 1,644 (H) 11/01/2016 No results found for: POCGLU No results found for: POCGLU Xr Chest Pa And Lateral Result Date: 01/03/2017 XR CHEST PA AND LATERAL 01/03/2017 3:24 PM HISTORY: fever. COMPARISON: 01/01/2017 Findings: T he bilateral lungs are clear with no evidence for pleural effusion or pneumothorax. Heart si ze is within upper limits of normal for size. Pulmonary vasculature is within normal limits. Aorta is normal. Mediastinum is unremarkable. No acute osseous or soft tissue abnormality i dentified. IMPRESSION - No acute intrathoracic abnormality identified. Dictated and Signed b y: Bryan Freedman MD Electronically signed: 01/03/2017 8:11 PM Total time of approximately 25 minutes was spent with the patient and/or patient's family, and/or on the patient's floor/unit, of which more than 50% was spent counseling and/or coord ination the patient's care as outlined above. Grant Lomas 01/03/2017 20:14 [facility] Portions of this chart may have been created with [employer] voice recognition software. Occasi onal wrong-word or sound-alike substitutions may have occurred due to the inherent gallardo itations of voice recognition software. Please read the chart carefully and recognize, using context, where these substitutions have occurred Anitha Agee, Pharm D - 01/02/2017 11:17 AM PDT RENAL DOSE ADJUSTMENT PER PHARMACY PROTOCOL: Subjective/Objective: Shaila Son is a 46 y.o. year old female admitted on 12/31/2016 14:35 for seizure du e to alcohol withdrawal and is receiving ENOXAPARIN for DVT prophylaxis. BP (!) 166/93 | Pulse 100 | Temp 37.2 C (99 F) (Oral) | Resp 22 | Ht 1.702 m (5' 7" ) | Wt 60.6 kg (133 lb 9.6 oz) | LMP (LMP Unknown) | SpO2 99% | ? No | BM I 20.92 kg/m Intake/Output Summary (Last 24 hours) at 01/02/17 1117 Last data filed at 01/02/17 1100 Gross per 24 hour Intake 3242 ml Output 1950 ml Net 1292 ml Recent Labs Lab 01/02/17 0354 01/01/17 0422 12/31/16 1445 CREA 0.48* 0.51* 0.75 Estimated Creatinine Clearance: 142 mL/min (based on SCr of 0.48 mg/dL (L)). Date 01/02 Day of therapy 2 Serum Creatinine 0.48 CrCl (mL/min) 142 Dose - current 30 mg q24hr Dose - new 40 mg q24hr Assessment/Plan: 1. For creatinine clearance > 30 mL/min, increase dose of ENOXAPARIN from 30 mg q24hr to 40 mg q24hr. 2. Pharmacy will continue to follow and adjust dose as appropriate to clinical condition an d creatinine clearance changes RENAL DOSE ADJUSTMENT PER PHARMACY PROTOCOL Electronically signed by: Anitha Jerome, PharmD 01/02/2017 11:17 Grant Mace MD - 01/02/2017 8:15 AM PDT [facility] PMG Hospitalist Progress Note Shaila Son is a 46 y.o. female ASSESSMENT and PLAN: Active Hospital Problems Altered mental status, unspecified Appears currently at baseline. Patient had history of tonic-clonic seizure on admission as sociated with alcohol withdrawal. She denies a history of seizures other than with disconti nuance of alcohol consumption. *Seizure due to alcohol withdrawal, uncomplicated Thought recurrence with good control of alcohol withdrawal on lorazepam. Anemia Fever to 103 on admission without obvious source Patient with rapid defervescence following admission. Paracentesis yesterday was abnormal with respect to WBC count of 800 and otherwise did not have a neutrophilia or significant pr otein. Glucose was not obtained on the specimen. Culture thus far is negative. Patient's cultures thus far only positive for 1 of 3 bottles in one culture of coag negativ e staph. Patient has some risk for this given her cirrhosis but certainly this is likely co ntaminant and will stop vancomycin without source. We'll continue ceftriaxone for now await ing culture results from paracentesis and will discontinue Jackson. Abdomen did show gallston es but currently no signs of symptomatic disease on exam SUBJECTIVE: No complaints of abdominal pain or nausea. No shortness of breath or chest discomfort. She reports good control of withdrawal symptoms VITALS: Temp: 37.5 C (99.5 F), Pulse: 97, Resp: 18, BP: (!) 161/96, SpO2 97 % on room air at fl ow rate L/min Temp Min: 37.2 C (99 F) Max: 38 C (100.4 F) Weight: 55.4 kg (122 lb 1.6 oz) Intake/Output Summary (Last 24 hours) at 01/02/17 4148 Last data filed at 01/02/17 0435 Gross per 24 hour Intake 3226 ml Output 1600 ml Net 1626 ml PHYSICAL EXAM: Cardiovascular: Rate and rhythm Respiratory: Clear bilaterally Abdomen: Soft without tenderness DIAGNOSTIC STUDIES: Available data and images were reviewed personally. Significant results and findings are a ddressed here or in the Assessment and Plan. Lab Results Component Value Date HGB 9.5 (L) 01/01/2017 HCT 28.1 (L) 01/01/2017 PLT 89 (L) 01/01/2017 WBC 6.1 01/01/2017 Lab Results Component Value Date NA 131 (L) 01/01/2017 K 3.0 (L) 01/01/2017 CL 103 01/01/2017 CO2 23 (L) 01/01/2017 CREA 0.48 (L) 01/02/2017 BUN 5 (L) 01/01/2017 MG 1.5 (L) 01/01/2017 PHOS 5.1 (H) 11/07/2016 BNP 1,644 (H) 11/01/2016 No results found for: POCGLU No results found for: POCGLU Ct Chest Wo Contrast Result Date: 01/01/2017 CT CHEST WO CONTRAST 01/01/2017 4:27 PM HISTORY: suspect PNA. COMPARISON: Multiple prior x-r ays PROTOCOL: Axial images of the chest were obtained. Coronal and sagittal reformations wer e acquired. FINDINGS: LUNGS: The bilateral lungs are generally clear. No radiographic eviden ce of pneumonia. Tiny subpleural nodules versus tiny areas of atelectasis are seen along april ateral dependent lower lung zones. There is no evidence for pleural effusion or pneumothorax . HEART: The heart is mildly enlarged. There is a small pericardial effusion. VASCULATURE: A yadira and pulmonary arteries are normal in size and without acute abnormality on non-contrast CT. LYMPH NODES: No evidence of axillary, mediastinal, or hilar lymphadenopathy. MEDIASTINU M: Trachea and esophagus are normal. Neck base is normal. ABDOMEN: Cirrhotic configuration of the liver. Small amount of ascites is present. Confines gallstones are seen layering oleg g the dependent gallbladder lumen. There is a left-sided splenorenal shunt and large perispl enic varices along the inferior aspect. Calcified nodule/mass is seen adjacent to the right diaphragm extending from the right hepatic dome (series 2, image 80), similar since prior ex amination. Previously described right-sided liver mass is poorly visualized on this noncontr ast CT SOFT TISSUES: Chest wall structures are normal. BONES: There are no acute osseous abn ormalities. IMPRESSION - No radiographic evidence of pneumonia. Cirrhosis with sequelae of p ortal hypertension including ascites and paraesophageal, perigastric, and perisplenic portos ystemic collaterals as well as a left-sided splenorenal shunt. Cardiomegaly. Dictated and Si gned by: Bryan Freedman MD Electronically signed: 01/01/2017 7:18 PM Xr Chest Ap Portable Result Date: 12/31/2016 EXAM: XR CHEST AP PORTABLE dated 12/31/2016 4:54 PM HISTORY: SEIZURE (ADULT-ALCOHOLIC) Keith rison: November 06, 2016 TECHNIQUE: A single portable view of the chest. FINDINGS: Low lung volu mes. Motion degradation. Prominent pulmonary vasculature bilaterally. Questionable area o f increased density adjacent to the left hilum. This appears somewhat similar to the compar raji exam. There is mild cardiomegaly. No pneumothorax. No large pleural effusion. No ac [place] osseous abnormalities. IMPRESSION - Low lung volumes and motion degradation. Findings ma y represent pulmonary venous congestion. Cannot exclude a developing airspace process in the left midlung. Dictated and Signed by: Hakeem Barroso MD Electronically signed: 12/31/2016 5:04 PM Us Guided Paracentesis Result Date: 01/01/2017 US GUIDED PARACENTESIS 01/01/2017 11:00 AM HISTORY: Fever. COMPARISON: None. PROTOCOL: After explaining the risks and benefits of the procedure, informed consent was obtained from the patient. Risks discussed included bleeding, infection, and bowel injury. Under ultrasound gu idance, the largest pocket of fluid was localized in the right lower abdomen. This region wa s cleansed and draped in the usual sterile fashion. Lidocaine was used for local anesthesia. A small skin sam was made. Using a 1.5 cm 20-gauge needle, the peritoneal space was access ed. There was return of yellowish fluid. Subsequently, 57 mL of the fluid was aspirated. The patient tolerated the procedure well. IMPRESSION - Successful ultrasound-guided paracentesi s. Dictated and Signed by: Austin Crane MD Electronically signed: 01/01/2017 1:05 PM Total time of approximately 25 minutes was spent with the patient and/or patient's family, and/or on the patient's floor/unit, of which more than 50% was spent counseling and/or coord ination the patient's care as outlined above. Grant Lomas 01/02/2017 8:16 [facility] Portions of this chart may have been created with [employer] voice recognition software. Occasi onal wrong-word or sound-alike substitutions may have occurred due to the inherent gallardo itations of voice recognition software. Please read the chart carefully and recognize, using context, where these substitutions have occurred AaRenetta mayer PharmD - 01/01/2017 8:29 PM PDT VANCOMYCIN PER PHARMACY PROTOCOL: Subjective/Objective: Shaila Son is a 46 y.o. female admitted on 12/31/2016 for metabolic encephalopathy due to cirrhosis. Patient is receiving vancomycin starting on 01/01/17 for bacteremia. Flores ent has a past medical history of Alcoholism (HCC); Anemia; Cirrhosis, alcoholic (HCC); Hyp ertension; and Seizures (HCC). Allergies Ciprofloxacin; Sulfamethoxazole-trimethoprim; and Ibuprofen Historical Vancomycin dosing (previous & current encounter): na Admission Wt: Weight: 55.4 kg (122 lb 1.6 oz) Current Wt: Weight: 56 kg (123 lb 7.3 oz) Min/Max Temp past 24 hours:Temp Av.8 C (100.1 F) Min: 37.2 C (99 F) Max: 39 C (102.2 F) Estimated Creatinine Clearance: 123 mL/min (based on SCr of 0.51 mg/dL (L)). Intake/Output Summary (Last 24 hours) at 01/01/172029 Last data filed at 01/01/17 1751 Gross per 24 hour Intake 1642 ml Output 2500 ml Net -858 ml Temp: [37.2 C (99 F)-39 C (102.2 F)] 38 C (100.4 F) Pulse: [83-113] 100 Resp: [12-25] 21 BP: (130-171)/(60-109) 159/96 Micro/Cultures/Diagnostics: Microbiology Results (Last 14 Days by Collected Date with Culture/Sensitivity) Procedure Component Value Units Date/Time Culture, Body Fluid, Sterile, Smear, with Anaerobes [[id number]] Collected: 01/01/17 115 Order Status: Sent Lab Status: In process Updated: 01/01/17 120 Specimen: Body Fluid from Ascites Narrative: The following orders were created for panel order Culture, Body Fluid, Sterile, Smear, wit h Anaerobes. Procedure Abnormality Status --------- ------ Culture, Body Fluid, Aerobe[[id number]] Preliminary result Culture, Body Fluid, Haley...[[id number]] In process Please view results for these tests on the individual orders. Culture, Body Fluid, Aerobe [[id number]] Collected: 01/01/17 115 Order Status: Completed Lab Status: Preliminary result Updated: 01/01/17 162 Specimen: Body Fluid from Ascites Gram Stain Result 1+ White Blood Cells No organisms seen Culture, Body Fluid, Anaerobe [[id number]] Collected: 01/01/17 115 Order Status: Resulted Lab Status: In process Updated: 01/01/17 1202 Specimen: Body Fluid from Ascites Culture, MRSA [[id number]] Collected: 01/01/17 0925 Order Status: Sent Lab Status: In process Updated: 01/01/17 09 Specimen: Respiratory from Nares Culture, Urine [[id number]] Order Status: Canceled Lab Status: No result Specimen: Urine from Urine, clean catch Culture, Urine [[id number]] Collected: 12/31/16 1722 Order Status: Sent Lab Status: In process Updated: 01/01/17 115 Specimen: Urine from Urine, clean catch Culture, Blood [[id number]] (Normal) Collected: 12/31/16 1523 Order Status: Completed Lab Status: Preliminary result Updated: 01/01/17 0331 Specimen: Blood from Peripheral Blood Culture No growth: Monitored continually by instrument for 5 days Culture, Blood [[id number]] (Abnormal) Collected: 12/31/16 1521 Order Status: Completed Lab Status: Preliminary result Updated: 01/01/17 1612 Specimen: Blood from Peripheral Blood Culture Positive Blood Culture (AA) Gram Stain Result Gram positive cocci in clusters Comment: 1 of 3 bottles positive Recent Labs Lab 01/01/17 0422 12/31/16 1521 12/31/16 1445 WBC 6.1 -- 10.3 CREA 0.51* -- 0.75 LACTATE -- 3.5* -- Imagin/25: CXR - no evidence of pna Date 01/01 Time of Vanco level -- Vancomycin level -- Serum Creatinine 0.51 CrCl (mL/min) ~120 Vanco load/bolus - Vanco dose - current -- Vanco dose - new 1000 mg q12hr Assessment: Vancomycin Day # 1 Other antibiotics: ceftriax Target Trough: 15-20 mcg/ml for bacteremia WBC: 6.1; Renal: 0.51; Temp: 39.0; Culture: bc: 1 of 3: gpc, uc: pending, peritoneal flu id: pending; VS: htn Renal function: UOP: stable Pt w/ low bmi. Only 1 of 3 bc +_contamination? Pt is spiking fevers. Plan: 1. No load necessary, maintenance vancomycin 1000 mg IVPB q12h 2. Vancomycin trough to be ordered if abx conts. 3. Serum creatinine DAILY for first 3 days, then at least every 3 days while on vancomycin. 4. Will monitor renal function, clinical status, infection markers daily with troughs and d ose adjustment as needed. References: Vancomycin dosing protocol IDSA guidelines Procalcitonin Algorithm Per P&T-approved Vancomycin Dosing and Monitoring Protocol Electronically signed by: Renetta Walton [facility] 01/01/2017 20:30 Aidee Cantu MD - 01/01/2017 2:43 PM [address] [facility] HOSPITALIST PROGRESS NOTE Patient: Shaila Son : 1970: Age: 46 y.o. MedRec: [id number] PCP: Trixie Rose PA-C Admission date: 12/31/2016 Hospital day # : 1 Physician author: Sarah Martel MD Today: 01/01/2017 SUBJECTIVE: Ms. Son is being seen in follow up of alcohol withdrawal seizures and suspected SBP an d/or acute cystitis. She still spiked a temperature early this morning. A repeat UA was no t very remarkable and it is less likely that this will be the source of infection. A urine culture was sent nevertheless. I asked her why she has stopped taking all her medi cations are still really have an answer for me. However she's ready to restart them again w nancy she is here Review of systems: Pertinent positives as noted under subjective. All other systems were r eviewed and are negative Scheduled Meds: cefTRIAXone 1 g Intravenous Once [START ON 01/02/2017] cefTRIAXone 2 g Intravenous Daily folic acid with thiamine and pyridoxine IVPB Intravenous Daily Continuous Infusions: sodium chloride 0.9% 100 mL/hr at 01/01/17 0138 PRN Meds:.acetaminophen, bisacodyl, LORazepam, LORazepam, morphine, ondansetron, polyethyle ne glycol, senna VITALS: Temp: 37.3 C (99.1 F), Pulse: 98, Resp: 19, BP: (!) 157/91, SpO2 98 % on room air at fl ow rate L/min Temp Min: 37.2 C (99 F) Max: 39.4 C (103 F) Weight: 55.4 kg (122 lb 1.6 oz) I/O last 3 completed shifts: In: 30 [P.O.:30] Out: 1550 [Urine:1550] No intake/output data recorded. PHYSICAL EXAM: General: Middleaged female seen at the bedside in the unit; she was not acutely illlooking, not pale, anicteric and afebrile Heent: Normocephalic and atraumatic; CHIDI, EOMI, normal appearance of external ears and no se. No oral lesions or pharyngeal erythema noted. Her lower lip is slightly swollen on the left side presumably where she hit it on the ground when she had the seizure Cardiovascular: S1, S2 normal, no murmurs. Regular rate and rhythm Respiratory: Clinically clear to auscultation with no rales or rhonchi Abdomen: Soft, nontender to palpation, no organomegaly, no ventral hernias, bowel sounds pr esent in all 4 quadrants Extremities: No peripheral edema noted, no cyanosis, no finger clubbing, dorsalis pedis pul ses present in both feet Skin: Warm and dry, no skin lesions, no rashes, no ulcers appreciated Neurological: Awake and alert, oriented 3. No focal neurological deficits Psychiatric: Flat affect with depressed mood DIAGNOSTIC STUDIES: Available data and images were reviewed personally. Significant results and findings are a ddressed here or in the Assessment and Plan. Recent Results (from the past 24 hour(s)) CBC no Differential Result Value Ref Range WBC 10.3 4.0 - 11.0 K/uL RBC 3.48 (L) 3.70 - 5.20 M/uL Hgb 11.1 (L) 11.5 - 16.0 g/dL Hct 33.4 (L) 34.0 - 47.0 % MCV 95.9 83.0 - 101.0 fL MCH 31.8 28.0 - 35.0 pg MCHC 33.2 32.0 - 36.0 g/dL RDW-CV 15.8 (H) <15.0 % Platelet Count 118 (L) 140 - 440 K/uL MPV 8.0 fL Comprehensive Metabolic Panel Result Value Ref Range NA 135 (L) 136 - 149 mmol/L K 3.9 3.5 - 5.1 mmol/L CL 104 98 - 109 mmol/L CO2 21 (L) 24 - 31 mmol/L ANION GAP 10 3 - 16 mmol/L GLUCOSE 143 (H) 70 - 109 mg/dL BUN 9 7 - 18 mg/dL Creatinine, Serum/Plasma 0.75 0.60 - 1.30 mg/dL eGFR if not >60 >=60 mL/min/1.73m2 CALCIUM 8.5 8.3 - 10.5 mg/dL ALBUMIN 2.4 (L) 3.2 - 5.0 g/dL BILIRUBIN TOTAL 1.2 0.1 - 1.5 mg/dL Total protein 7.2 6.0 - 7.8 g/dL AST 84 (H) 10 - 42 U/L ALT 21 6 - 45 U/L ALK PHOS 167 (H) 40 - 110 U/L GLOBULIN 4.8 (H) 2.1 - 3.8 g/dL Albumin/Globulin ratio 0.5 (L) 0.8 - 2.0 BUN/CREA 12.0 Lipase Result Value Ref Range LIPASE 21 0 - 60 U/L Extra Green Top Tube Result Value Ref Range Extra Green Top Tube Done Extra Blue Top Tube Result Value Ref Range Extra Blue Top Tube Done Culture, Blood Result Value Ref Range Culture No growth: Monitored continually by instrument for 5 days Lactic Acid Result Value Ref Range LACTATE 3.5 (H) 0.5 - 2.2 mmol/L Culture, Blood Result Value Ref Range Culture No growth: Monitored continually by instrument for 5 days Urinalysis with Microscopic with Culture if Indicated Result Value Ref Range COLOR Coleen (A) Light Yellow, Yellow, Straw CLARITY Cloudy (A) Clear PH UA 7.0 5.0 - 8.0 Specific [place] 1.018 1.001 - 1.030 PROTEIN UA >=500 mg/dL (A) Negative BLOOD UA Moderate (A) Negative GLUCOSE UA Negative Negative KETONES UA Negative Negative BILIRUBIN UA Negative Negative NITRITE UA Negative Negative LEUKOCYTES ESTERASE UA Negative Negative UROBILINOGEN UA Negative 0.2 mg/dL, 1.0 mg/dL, Negative WBC UA 5-10 (A) 0 - 2 /HPF RBC UA 25-50 (A) 0 - 2 /HPF SQUAMOUS EPITHELIAL UA 50-100 (A) 0 - 2 /LPF BACTERIA UA 1+ (A) Negative /HPF MUCUS UA Present (A) Negative /LPF HYALINE CASTS UA 2-5 (A) 0 - 2 /LPF URINE COMMENT Urine Culture Not Indicated Urinalysis with Microscopic with Culture if Indicated Result Value Ref Range COLOR Yellow Light Yellow, Yellow, Straw CLARITY Clear Clear PH UA 8.0 5.0 - 8.0 Specific [place] 1.009 1.001 - 1.030 PROTEIN UA 100 mg/dL (A) Negative BLOOD UA Moderate (A) Negative GLUCOSE UA Negative Negative KETONES UA Negative Negative BILIRUBIN UA Negative Negative NITRITE UA Negative Negative LEUKOCYTES ESTERASE UA Negative Negative UROBILINOGEN UA Negative 0.2 mg/dL, 1.0 mg/dL, Negative WBC UA 0-2 0 - 2 /HPF RBC UA 15-25 (A) 0 - 2 /HPF SQUAMOUS EPITHELIAL UA 2-5 (A) 0 - 2 /LPF BACTERIA UA 1+ (A) Negative /HPF MUCUS UA Present (A) Negative /LPF URIC ACID CRYSTALS Few (A) None Seen /HPF URINE COMMENT Urine Culture Not Indicated Ammonia Result Value Ref Range AMMONIA 77 (H) 11 - 35 umol/L CBC with Differential Result Value Ref Range WBC 6.1 4.0 - 11.0 K/uL RBC 2.98 (L) 3.70 - 5.20 M/uL Hgb 9.5 (L) 11.5 - 16.0 g/dL Hct 28.1 (L) 34.0 - 47.0 % MCV 94.5 83.0 - 101.0 fL MCH 31.9 28.0 - 35.0 pg MCHC 33.8 32.0 - 36.0 g/dL RDW-CV 15.8 (H) <15.0 % Platelet Count 89 (L) 140 - 440 K/uL MPV 8.0 fL % Neutrophils 71.9 45.0 - 82.0 % % Lymphocytes 8.9 (L) 20.0 - 45.0 % % Monocytes 17.6 (H) 4.0 - 12.0 % % Eosinophils 0.5 0.0 - 5.0 % % Basophils 1.1 (H) 0.0 - 1.0 % Absolute Neutrophils 4.40 1.80 - 8.50 K/uL Absolute Lymphocytes 0.50 (L) 0.60 - 3.20 K/uL Absolute Monocytes 1.10 (H) 0.00 - 1.00 K/uL Absolute Eosinophils 0.00 0.00 - 0.40 K/uL Absolute Basophils 0.10 0.00 - 0.10 K/uL Comprehensive Metabolic Panel Result Value Ref Range NA 131 (L) 136 - 149 mmol/L K 3.0 (L) 3.5 - 5.1 mmol/L CL 103 98 - 109 mmol/L CO2 23 (L) 24 - 31 mmol/L ANION GAP 5 3 - 16 mmol/L GLUCOSE 91 70 - 109 mg/dL BUN 5 (L) 7 - 18 mg/dL Creatinine, Serum/Plasma 0.51 (L) 0.60 - 1.30 mg/dL eGFR if not >60 >=60 mL/min/1.73m2 CALCIUM 7.1 (L) 8.3 - 10.5 mg/dL ALBUMIN 1.8 (L) 3.2 - 5.0 g/dL BILIRUBIN TOTAL 1.2 0.1 - 1.5 mg/dL Total protein 5.7 (L) 6.0 - 7.8 g/dL AST 66 (H) 10 - 42 U/L ALT 17 6 - 45 U/L ALK PHOS 130 (H) 40 - 110 U/L GLOBULIN 3.9 (H) 2.1 - 3.8 g/dL Albumin/Globulin ratio 0.5 (L) 0.8 - 2.0 BUN/CREA 9.8 Magnesium Result Value Ref Range MG 1.5 (L) 1.8 - 2.5 mg/dL Protime INR Result Value Ref Range PROTIME 16.7 (H) 11.3 - 13.9 seconds INR 1.35 (H) 0.90 - 1.10 Cell Count with Differential, Body Fluid Result Value Ref Range Specimen Source Abdomen Volume, Fluid 50 mL BF Color Light Yellow BF Appearance Clear Clear BF Nucleated cells 800 (H) 0 - 150 cells/uL BF RBC 1,383 cells/uL BF % Neutrophils 2 % BF % Lymphocytes 44 % BF % Macro/Pierce 44 % BF % Eosinophils 9 % BF Total cells counted 97 Albumin, Body Fluid Result Value Ref Range Albumin, Body Fluid <1.0 g/dL Source Other Xr Chest Ap Portable Result Date: 12/31/2016 EXAM: XR CHEST AP PORTABLE dated 12/31/2016 4:54 PM HISTORY: SEIZURE (ADULT-ALCOHOLIC) Keith rison: November 06, 2016 TECHNIQUE: A single portable view of the chest. FINDINGS: Low lung volu mes. Motion degradation. Prominent pulmonary vasculature bilaterally. Questionable area o f increased density adjacent to the left hilum. This appears somewhat similar to the compar raji exam. There is mild cardiomegaly. No pneumothorax. No large pleural effusion. No ac [place] osseous abnormalities. IMPRESSION - Low lung volumes and motion degradation. Findings ma y represent pulmonary venous congestion. Cannot exclude a developing airspace process in the left midlung. Dictated and Signed by: Hakeem Barroso MD Electronically signed: 12/31/2016 5:04 PM Us Guided Paracentesis Result Date: 01/01/2017 US GUIDED PARACENTESIS 01/01/2017 11:00 AM HISTORY: Fever. COMPARISON: None. PROTOCOL: After explaining the risks and benefits of the procedure, informed consent was obtained from the patient. Risks discussed included bleeding, infection, and bowel injury. Under ultrasound gu idance, the largest pocket of fluid was localized in the right lower abdomen. This region wa s cleansed and draped in the usual sterile fashion. Lidocaine was used for local anesthesia. A small skin sam was made. Using a 1.5 cm 20-gauge needle, the peritoneal space was access ed. There was return of yellowish fluid. Subsequently, 57 mL of the fluid was aspirated. The patient tolerated the procedure well. IMPRESSION - Successful ultrasound-guided paracentesi s. Dictated and Signed by: Austin Crane MD Electronically signed: 01/01/2017 1:05 PM ASSESSMENT and PLAN: Active Hospital Problems Diagnosis Altered mental status, unspecified *Seizure due to alcohol withdrawal, uncomplicated Anemia Ascites due to alcoholic cirrhosis Resolved Hospital Problems Diagnosis Date Noted Date Resolved No resolved problems to display. 1. Seizure episode due to alcohol withdrawal: Continue to observe for seizures and give NM N Ativan per alcohol withdrawal order set for the ICU, for agitation and/or seizures. We wi ll continue to monitor her vital signs and her mental status closely for development of DTs. Since she is now cleared for PO intake I will order Librium 25 mg 3 times a day for preven tion of DTs 2. SIRS suspected to be due to an infectious cause: She is status post ultrasound-guided d iagnostic paracentesis today and the cell count and differential of the ascitic fluid is sig nificant for the presence of 800 white cells but only 2% of them are reported to be neutroph ils. However clinically she may have SBP so I will increase the Rocephin to 2 g daily to co juice for likely bacteria that could be responsible. A chest x-ray done yesterday is also sug gestive of a possible infiltrate so we'll order a CT of the chest without contrast to furthe r evaluate this finding. 3. Suspected acute cystitis with hematuria: Currently on IV Rocephin, will continue manage ment as noted in (2). Continue IV fluids("banana bag"), antiemetic therapy and analgesic the rapy as needed. Follow up on urine culture and sensitivity once available 4. Anemia of chronic liver disease: There is no intervention required at this time. We wi ll follow her CBC 5. Thrombocytopenia: due to chronic liver disease. No intervention required at this time 6. Alcoholic liver cirrhosis with suspected ascites: Continue with supportive therapies. Even though her ammonia level is elevated, she doesn't clinically have altered mentation to suggest hepatic encephalopathy. I will be starting her back on the lactulose however 7. Alcohol abuse disorder: she will be counseled prior to discharge again (as I'm sure has been done multiple times in the past), concerning the detrimental effects of alcohol abuse on her health in both the short and the long-term. Ill ask the SW to give her information ab out alcohol rehabilitation programs which she could attend if she were interested in quittin g 8. DVT Prophylaxis: SCD's while in bed; start Lovenox 30 mg subcu daily Sarah Martel 01/01/2017 14:43 [facility] Dave Coker Pha D - 12/31/2016 8:01 PM PDT PHARMACY SERVICES: ADMISSION MEDICATION REVIEW Shaila Son is a 46 y.o. female admitted on 12/31/16. Patient is a reliable historian. Location of Patient when reviewed: x ED Medical Floor Patient s prior to admit medication and over the counter (OTC) medications/herbal supplem ents list obtained from: x Verbal interview x Patient ABLE to recall name, strength, and directions x Pharmacy list names: [facility] [employer] insurance reported information x Care Everywhere Vaccines up to date? Yes No Unsure Influenza x Pneumococcal x Tdap x Shingles x Noted medications discrepancies or medication-related issues: Recreational Substances , Tobacco & Alcohol use : Drug: Route Frequency: Last Used: Alcohol Oral Daily Unknown Other: Patient denies taking any prescription/OTC medications. Her preferred pharmacy has not f illed anything for her since April 2016. Medication review performed and electronically signed by Ricardo Silverman Carbonator 17:49 Reviewed by Dave Wells PharmD 12/31/2016 20:02 documented in this e ncounter H&P Notes Fiona Cornejo MD - 12/31/2016 5:19 PM PDT [facility] HISTORY AND PHYSICAL Pt. Name/Age/: Shaila Son 46 y.o. 1970 Date of admission: 12/31/2016 Admitting Physician: Sarah Martel MD Primary Care Provider: Trixie Rose PA-C CHIEF COMPLAINT: Seizure secondary to alcohol withdrawal and fever 1 day HISTORY OF PRESENT ILLNESS: This is a 46 y.o. female with a known history of alcohol abuse, alcohol wi thdrawal seizures, alcoholic liver cirrhosis, hypertension and anemia, who presented to the ED here today after she was noted to have had a grand mal seizure at home. She is Well-know n to the ED doctors at this hospital because she has presented to this ED multiple times for alcohol withdrawal seizures. She is a very poor historian, so the history was obtained fro m the ED physician and from the electronic medical record. She tells me that she drinks at least a sixpack of beer a day. Her last drink, according to her was this morning and it was one large can of beer. She said that she was in the company of some friends when she had a seizure so her friends called 911. When she got here she was noted to have a high fever an d is being admitted for evaluation of the fever and management of alcohol withdrawal. She s ays that she's had some nausea and vomited just before she came to the ED. At the time of m y visit she was having shaking chills. She denies any source of pain and only complains of a headache. Her temperature was 103 F. There were no family members at the bedside at the time of my evaluation. Past Medical History: Diagnosis Date Alcoholism (HCC) Anemia Cirrhosis, alcoholic (HCC) Hypertension Seizures (HCC) Past Surgical History: Procedure Laterality Date Back fusion 2015 FAMILY HISTORY: Not significant for coronary artery disease, hypertension or diabetes SOCIAL HISTORY: reports that she has quit smoking. She has never used smokeless tobacco. She reports that she drinks about 3.6 oz of alcohol per week . She reports that she does not use drugs. REVIEW OF SYSTEMS: Pertinent positives as noted in the HPI. All other systems were reviewed and are negative HOME MEDICATIONS: Previous Medications FAMOTIDINE (PEPCID) 40 MG TABLET Take 1 tablet by mouth Daily. FOLIC ACID 1 MG TABLET Take 1 tablet by mouth Daily. FUROSEMIDE (LASIX) 20 MG TABLET Take 1 tablet by mouth 2 times daily. LACTULOSE 10 G/15 ML SOLUTION Take 15 mLs by mouth Daily. MAGNESIUM OXIDE (MAG-OX) 400 MG TABLET Take 1 tablet by mouth 2 times daily. MULTIPLE VITAMINS-MINERALS (ADULT MULTIVITAMIN WITH MINERALS/IRON) TABS Take 1 tablet b y mouth Daily. POLYETHYLENE GLYCOL (MIRALAX) PACKET Take 17 g by mouth Daily as needed (constipation). POTASSIUM CHLORIDE (MICRO-K) 10 MEQ CR CAPSULE Take 1 capsule by mouth Daily. SPIRONOLACTONE (ALDACTONE) 25 MG TABLET Take 2 tablets by mouth 2 times daily. THIAMINE (VITAMIN B-1) 100 MG TABLET Take 1 tablet by mouth Daily. ALLERGIES: Allergies Allergen Reactions Ciprofloxacin Anaphylaxis Sulfamethoxazole-Trimethoprim Anaphylaxis Ibuprofen Hives Pt also has liver failure VITAL SIGNS: Temp: (!) 39.4 C (103 F), Pulse: 120, Resp: 23, BP: (!) 141/96, SpO2 98 % on room air a t flow rate L/min Temp Min: 38.4 C (101.2 F) Max: 39.4 C (103 F) Weight: 55.4 kg (122 lb 1.6 oz) PHYSICAL EXAMINATION: Gen Desire - middle aged woman seen at the bedside in the ED, she was awake and alert, warm to touch, not pale and in no distress. She was slightly jaundiced Head - Normocephalic, without obvious abnormality Eyes - PERRL, conjunctiva/corneas clear, EOMI ENT - mucous membranes dry, no pharyngeal erythema or oral lesions were appreciated. Normal appearance of external ears and nose Neck - supple Lungs - clear to auscultation, no wheezes or rales and unlabored breathing Heart - S1 and S2 normal, no murmurs noted, no gallops noted, tachycardia noted Abdomen - soft, possibly diffuse tenderness but the patient was not cooperative with me during the exam so it was difficult to tell; no masses or organomegaly and (+) ascites Extremities - no peripheral edema, no clubbing or cyanosis Skin - no rashes, no ecchymoses, no petechiae Neurologic - Alert and oriented x 3. No focal neurological deficits Psychiatric-flat affect with depressed mood DIAGNOSTIC STUDIES: Available data and images were reviewed personally. Significant results and findings are a ddressed here or in the Assessment and Plan. Recent Results (from the past 24 hour(s)) CBC no Differential Result Value Ref Range WBC 10.3 4.0 - 11.0 K/uL RBC 3.48 (L) 3.70 - 5.20 M/uL Hgb 11.1 (L) 11.5 - 16.0 g/dL Hct 33.4 (L) 34.0 - 47.0 % MCV 95.9 83.0 - 101.0 fL MCH 31.8 28.0 - 35.0 pg MCHC 33.2 32.0 - 36.0 g/dL RDW-CV 15.8 (H) <15.0 % Platelet Count 118 (L) 140 - 440 K/uL MPV 8.0 fL Comprehensive Metabolic Panel Result Value Ref Range NA 135 (L) 136 - 149 mmol/L K 3.9 3.5 - 5.1 mmol/L CL 104 98 - 109 mmol/L CO2 21 (L) 24 - 31 mmol/L ANION GAP 10 3 - 16 mmol/L GLUCOSE 143 (H) 70 - 109 mg/dL BUN 9 7 - 18 mg/dL Creatinine, Serum/Plasma 0.75 0.60 - 1.30 mg/dL eGFR if not >60 >=60 mL/min/1.73m2 CALCIUM 8.5 8.3 - 10.5 mg/dL ALBUMIN 2.4 (L) 3.2 - 5.0 g/dL BILIRUBIN TOTAL 1.2 0.1 - 1.5 mg/dL Total protein 7.2 6.0 - 7.8 g/dL AST 84 (H) 10 - 42 U/L ALT 21 6 - 45 U/L ALK PHOS 167 (H) 40 - 110 U/L GLOBULIN 4.8 (H) 2.1 - 3.8 g/dL Albumin/Globulin ratio 0.5 (L) 0.8 - 2.0 BUN/CREA 12.0 Lipase Result Value Ref Range LIPASE 21 0 - 60 U/L Extra Green Top Tube Result Value Ref Range Extra Green Top Tube Done Extra Blue Top Tube Result Value Ref Range Extra Blue Top Tube Done Lactic Acid Result Value Ref Range LACTATE 3.5 (H) 0.5 - 2.2 mmol/L Urinalysis with Microscopic with Culture if Indicated Result Value Ref Range COLOR Coleen (A) Light Yellow, Yellow, Straw CLARITY Cloudy (A) Clear PH UA 7.0 5.0 - 8.0 Specific [place] 1.018 1.001 - 1.030 PROTEIN UA >=500 mg/dL (A) Negative BLOOD UA Moderate (A) Negative GLUCOSE UA Negative Negative KETONES UA Negative Negative BILIRUBIN UA Negative Negative NITRITE UA Negative Negative LEUKOCYTES ESTERASE UA Negative Negative UROBILINOGEN UA Negative 0.2 mg/dL, 1.0 mg/dL, Negative WBC UA 5-10 (A) 0 - 2 /HPF RBC UA 25-50 (A) 0 - 2 /HPF SQUAMOUS EPITHELIAL UA 50-100 (A) 0 - 2 /LPF BACTERIA UA 1+ (A) Negative /HPF MUCUS UA Present (A) Negative /LPF HYALINE CASTS UA 2-5 (A) 0 - 2 /LPF URINE COMMENT Urine Culture Not Indicated Xr Chest Ap Portable Result Date: 12/31/2016 EXAM: XR CHEST AP PORTABLE dated 12/31/2016 4:54 PM HISTORY: SEIZURE (ADULT-ALCOHOLIC) Keith rison: November 06, 2016 TECHNIQUE: A single portable view of the chest. FINDINGS: Low lung volu mes. Motion degradation. Prominent pulmonary vasculature bilaterally. Questionable area o f increased density adjacent to the left hilum. This appears somewhat similar to the compar raji exam. There is mild cardiomegaly. No pneumothorax. No large pleural effusion. No ac [place] osseous abnormalities. IMPRESSION - Low lung volumes and motion degradation. Findings ma y represent pulmonary venous congestion. Cannot exclude a developing airspace process in the left midlung. Dictated and Signed by: Hakeem Barroso MD Electronically signed: 12/31/2016 5:04 PM CXR: Reviewed independently by me. The CXR shows low lung volumes and motion degradation. ASSESSMENT and PLAN: Active Hospital Problems Diagnosis Altered mental status, unspecified *Seizure due to alcohol withdrawal, uncomplicated Anemia Ascites due to alcoholic cirrhosis Resolved Hospital Problems Diagnosis Date Noted Date Resolved No resolved problems to display. 1. Seizure episode due to alcohol withdrawal: She will be admitted to ICU stepdown and ruby erica on seizure precautions. I have ordered PRN Ativan per alcohol withdrawal order set for the ICU, for agitation and/or seizures. She is also at risk for Dts.We will monitor her bhargav l signs and her mental status closely. She has been here multiple times in the past for alcohol withdrawal seizures and she does n ot need to be started on long-term anti-seizure medication. 2. SIRS suspected to be due to an infectious cause: She meets criteria for SIRS and based on what we have so far, I think the most likely source is her urine. I will order a urine c ulture and start her empirically on IV ceftriaxone once daily. 3. Suspected acute cystitis with hematuria: Continue management as noted in (2). Continue IV fluids("banana bag"), antiemetic therapy and analgesic therapy as needed 4. Anemia of chronic liver disease: There is no intervention required at this time. We wi ll follow her CBC 5. Thrombocytopenia: due to chronic liver disease. No intervention required at this time 6. Alcoholic liver cirrhosis with suspected ascites: I see no clinical evidence of hepatic encephalopathy but because she has a fever, it would be prudent to obtain a diagnostic tap and send the ascitic fluid for workup. The patient is very likely noncompliant with all her home medications because she reports not taking any of them I will also check an ammonia level to complete the workup 7. Alcohol abuse disorder: she will be counseled prior to discharge again (as I'm sure has been done multiple times in the past), concerning the detrimental effects of alcohol abuse on her health in both the short and the long-term. Ill ask the SW to give her information ab out alcohol rehabilitation programs which she could attend if she were interested in quittin g DVT Prophylaxis SCD's while in bed Code Status Full Code. CMS Documentation I expect this patient will be hospitalized for greater than 2-midnights and expect the post -hospital plan to be discharge to home or to an adult foster home. Total of 45 minutes were required to complete the admission process. Reviewed and summariz ed past medical records. Medical Decisionmaker: Patient Electronically signed by: Sarah Martel MD 12/31/2016 17:19 [facility] Portions of this chart may have been created with [employer] voice recognition software. Occasi onal wrong-word or sound-alike substitutions may have occurred due to the inherent gallardo itations of voice recognition software. Please read the chart carefully and recognize, using context, where these substitutions have occurred documented in thi s encounter Procedure Notes Ximena Christianson MD - 01/04/2017 5:41 PM PDTAssociated Order(s): EEGProcedure(s): EEG EEG REPORT GENERAL DESCRIPTION: This was a 19 channel awake EEG recording with International 10/20 el ectrode placements. The background activity consisted of symmetrical, medium amplitude fast frequency 18-20Hz beta diffusely ACTIVATION & SLEEP: No change of the background activity with eye opening was noted. Hyperv entilation produced no significant changes to the background activity. Photic stimulation pr oduced no significant changes to the background activity. No sleep or drowsiness was noted. OTHER DATA: No epileptiform discharges were noted. CLINICAL IMPRESSION: This EEG is abnormal. Background was a diffuse fast frequency beta 18-20Hz. No other focal, diffuse or generalized abnormalities were noted.The absence of epileptiform discharges duri ng the EEG recording does not rule out the diagnosis of a seizure disorder. Medication effec t such as benzodiazepine use may be considered to cause beta waves. Clinical correlation is recommended. Thank you for the courtesy of this referral. Sincerely, Ximena Christianson documented in this encounter ED Notes Laci Morrison MD - 12/31/2016 2:38 PM PDTFormatting of this note might be different fro m the original. eMERGENCY dEPARTMENT eNCOUnter CHIEF COMPLAINT Chief Complaint Patient presents with Seizure (Adult - Alcoholic) HPI Shaila Son is a 46 y.o. female who presents with a seizure. She has a history of alcohol withdrawal seizures, no vomiting, no diarrhea, no other associated symptoms. Family states whenever she doesn't drink a sixpack she gets a seizure. She's had this happen in t he past. She is interested in stopping drinking and is been struggling. She states she's b een coughing a great deal the last couple of days as well. She denies any shortness of ingris th. PAST MEDICAL HISTORY Past Medical History: Diagnosis Date Alcoholism (HCC) Anemia Cirrhosis, alcoholic (HCC) Hypertension Seizures (HCC) SURGICAL HISTORY Past Surgical History: Procedure Laterality Date Back 2015 CURRENT MEDICATIONS Previous Medications FAMOTIDINE (PEPCID) 40 MG TABLET Take 1 tablet by mouth Daily. FOLIC ACID 1 MG TABLET Take 1 tablet by mouth Daily. FUROSEMIDE (LASIX) 20 MG TABLET Take 1 tablet by mouth 2 times daily. LACTULOSE 10 G/15 ML SOLUTION Take 15 mLs by mouth Daily. MAGNESIUM OXIDE (MAG-OX) 400 MG TABLET Take 1 tablet by mouth 2 times daily. MULTIPLE VITAMINS-MINERALS (ADULT MULTIVITAMIN WITH MINERALS/IRON) TABS Take 1 tablet b y mouth Daily. POLYETHYLENE GLYCOL (MIRALAX) PACKET Take 17 g by mouth Daily as needed (constipation). POTASSIUM CHLORIDE (MICRO-K) 10 MEQ CR CAPSULE Take 1 capsule by mouth Daily. SPIRONOLACTONE (ALDACTONE) 25 MG TABLET Take 2 tablets by mouth 2 times daily. THIAMINE (VITAMIN B-1) 100 MG TABLET Take 1 tablet by mouth Daily. ALLERGIES Allergies Allergen Reactions Ciprofloxacin Anaphylaxis Sulfamethoxazole-Trimethoprim Anaphylaxis Ibuprofen Hives Pt also has liver failure FAMILY HISTORY No family history on file. SOCIAL HISTORY Social History Social History Marital status: Single Spouse name: N/A Number of children: N/A Years of education: N/A Social History Main Topics Smoking status: Former Smoker Smokeless tobacco: Not on file Alcohol use Yes Comment: alcoholism, currently drinks 6 cans of beer daily Drug use: No Sexual activity: Not on file Other Topics Concern Not on file Social History Narrative No narrative on file REVIEW OF SYSTEMS All systems reviewed and negative except as noted on HPI and/or limited by patient conditio n PHYSICAL EXAM VITAL SIGNS: Constitutional: Well developed, Well nourished, No acute distress, Non-toxic appearance. HENT: Normocephalic, Atraumatic, Oropharynx moist, No oral exudates, Nose normal. Neck- No rmal range of motion, No tenderness, Supple, No stridor. Eyes: PERRL, EOMI, Conjunctiva normal, No discharge. Respiratory: Crackles in the bases, No wheezing, No chest tenderness. Cardiovascular: Normal S1, S2 GI: nondistended, nontender : not done Musculoskeletal: Intact distal pulses, No edema ,Integument: Warm, Dry, No erythema, No rash. EKG Not done RADIOLOGY Chest x-ray is negative for pneumonia ED COURSE & MEDICAL DECISION MAKING Last Set of Vital Signs: Pertinent Labs, Nurses Note, & Imaging studies reviewed. (See chart for details) 46 -year-old female with cough, fever value 103, seizures, and alcohol withdrawal. I suspe ct an aspiration pneumonia even though her chest x-ray is clear based upon her clinical exam . I started her on Zosyn and admitted to the hospitalist service for further evaluation and treatment. FINAL IMPRESSION Pneumonia Alcohol withdrawal seizure LABS FROM THIS VISIT OR MOST RECENT ER VISIT: Results for orders placed or performed during the hospital encounter of 10/31/16 Culture, Blood Result Value Ref Range Culture No growth after 5 days incubation. Culture, Blood Result Value Ref Range Culture No growth after 5 days incubation. Culture, MRSA Result Value Ref Range Culture Negative for MRSA by chromogenic agar method Culture, Body Fluid, Aerobe Result Value Ref Range Culture No Growth Gram Stain Result 2+ White Blood Cells Gram Stain Result 3+ Red blood cells Gram Stain Result No organisms seen Culture, Body Fluid, Anaerobe Result Value Ref Range Culture No anaerobes isolated. CBC with Differential Result Value Ref Range WBC 5.3 4.0 - 11.0 K/uL RBC 3.19 (L) 3.70 - 5.20 M/uL Hgb 10.2 (L) 11.5 - 16.0 g/dL Hct 30.2 (L) 34.0 - 47.0 % MCV 94.9 83.0 - 101.0 fL MCH 31.9 28.0 - 35.0 pg MCHC 33.6 32.0 - 36.0 g/dL RDW-CV 14.9 <15.0 % Platelet Count 90 (L) 140 - 440 K/uL MPV 7.8 fL % Neutrophils 81.7 45.0 - 82.0 % % Lymphocytes 8.2 (L) 20.0 - 45.0 % % Monocytes 8.6 4.0 - 12.0 % % Eosinophils 0.3 0.0 - 5.0 % % Basophils 1.2 (H) 0.0 - 1.0 % Absolute Neutrophils 4.40 1.80 - 8.50 K/uL Absolute Lymphocytes 0.40 (L) 0.60 - 3.20 K/uL Absolute Monocytes 0.50 0.00 - 1.00 K/uL Absolute Eosinophils 0.00 0.00 - 0.40 K/uL Absolute Basophils 0.10 0.00 - 0.10 K/uL Comprehensive Metabolic Panel Result Value Ref Range NA 131 (L) 136 - 149 mmol/L K 2.9 (L) 3.5 - 5.1 mmol/L CL 100 98 - 109 mmol/L CO2 20 (L) 24 - 31 mmol/L ANION GAP 11 3 - 16 mmol/L GLUCOSE 100 70 - 109 mg/dL BUN 4 (L) 7 - 18 mg/dL Creatinine, Serum/Plasma 0.59 (L) 0.60 - 1.30 mg/dL eGFR if not >60 >=60 mL/min/1.73m2 CALCIUM 7.2 (L) 8.3 - 10.5 mg/dL ALBUMIN 1.5 (L) 3.2 - 5.0 g/dL BILIRUBIN TOTAL 1.4 0.1 - 1.5 mg/dL Total protein 6.4 6.0 - 7.8 g/dL AST 52 (H) 10 - 42 U/L ALT 15 6 - 45 U/L ALK PHOS 143 (H) 40 - 110 U/L GLOBULIN 4.9 (H) 2.1 - 3.8 g/dL Albumin/Globulin ratio 0.3 (L) 0.8 - 2.0 BUN/CREA 6.8 Protime INR Result Value Ref Range PROTIME 15.1 (H) 11.3 - 13.9 seconds INR 1.16 (H) 0.90 - 1.10 PTT Result Value Ref Range PTT 23 22 - 36 seconds Ammonia Result Value Ref Range AMMONIA 33 11 - 35 umol/L Lactic Acid Result Value Ref Range LACTATE 2.8 (H) 0.5 - 2.2 mmol/L Amylase Result Value Ref Range AMYLASE 149 (H) 27 - 100 IU/L Lipase Result Value Ref Range LIPASE 24 0 - 60 U/L Urinalysis with Microscopic with Culture if Indicated Result Value Ref Range COLOR Coleen (A) Light Yellow, Yellow, Straw CLARITY Cloudy (A) Clear PH UA 6.0 5.0 - 8.0 Specific [place] 1.014 1.001 - 1.030 PROTEIN UA >=500 mg/dL (A) Negative BLOOD UA Moderate (A) Negative GLUCOSE UA Negative Negative KETONES UA Trace (A) Negative BILIRUBIN UA Negative Negative NITRITE UA Negative Negative LEUKOCYTES ESTERASE UA Negative Negative UROBILINOGEN UA 2.0 mg/dL (A) 0.2 mg/dL, 1.0 mg/dL, Negative WBC UA 2-5 (A) 0 - 2 /HPF RBC UA 25-50 (A) 0 - 2 /HPF SQUAMOUS EPITHELIAL UA 15-25 (A) 0 - 2 /LPF BACTERIA UA 2+ (A) Negative /HPF MUCUS UA Present (A) Negative /LPF AMORPHOUS CRYSTALS Few (A) None Seen /HPF HYALINE CASTS UA 2-5 (A) 0 - 2 /LPF URINE COMMENT Urine Culture Not Indicated Salicylate Level Result Value Ref Range Salicylate <4.0 <30.0 mg/dL Ethanol Result Value Ref Range ALCOHOL, SERUM/PLASMA 100 <400 mg/dL Acetaminophen Level Result Value Ref Range Acetaminophen Level <10 <10 ug/mL Extra Green Top Tube Result Value Ref Range Extra Green Top Tube Done Urinalysis with Microscopic with Culture if Indicated Result Value Ref Range COLOR Straw Light Yellow, Yellow, Straw CLARITY Clear Clear PH UA 6.0 5.0 - 8.0 Specific [place] 1.005 1.001 - 1.030 PROTEIN UA 30 mg/dL (A) Negative BLOOD UA Moderate (A) Negative GLUCOSE UA Negative Negative KETONES UA Negative Negative BILIRUBIN UA Negative Negative NITRITE UA Negative Negative LEUKOCYTES ESTERASE UA Negative Negative UROBILINOGEN UA Negative 0.2 mg/dL, 1.0 mg/dL, Negative WBC UA 0-2 0 - 2 /HPF RBC UA 10-15 (A) 0 - 2 /HPF SQUAMOUS EPITHELIAL UA 2-5 (A) 0 - 2 /LPF BACTERIA UA 1+ (A) Negative /HPF AMORPHOUS CRYSTALS Few (A) None Seen /HPF URINE COMMENT Urine Culture Not Indicated Basic Metabolic Panel Result Value Ref Range NA 134 (L) 136 - 149 mmol/L K 2.8 (L) 3.5 - 5.1 mmol/L CL 101 98 - 109 mmol/L CO2 22 (L) 24 - 31 mmol/L ANION GAP 11 3 - 16 mmol/L GLUCOSE 87 70 - 109 mg/dL BUN 4 (L) 7 - 18 mg/dL Creatinine, Serum/Plasma 0.53 (L) 0.60 - 1.30 mg/dL eGFR if not >60 >=60 mL/min/1.73m2 CALCIUM 7.0 (L) 8.3 - 10.5 mg/dL BUN/CREA 7.5 CBC with Differential Result Value Ref Range WBC 5.7 4.0 - 11.0 K/uL RBC 3.18 (L) 3.70 - 5.20 M/uL Hgb 10.2 (L) 11.5 - 16.0 g/dL Hct 29.9 (L) 34.0 - 47.0 % MCV 94.1 83.0 - 101.0 fL MCH 32.1 28.0 - 35.0 pg MCHC 34.1 32.0 - 36.0 g/dL RDW-CV 14.8 <15.0 % Platelet Count 71 (L) 140 - 440 K/uL MPV 7.9 fL % Neutrophils 73.4 45.0 - 82.0 % % Lymphocytes 8.1 (L) 20.0 - 45.0 % % Monocytes 16.1 (H) 4.0 - 12.0 % % Eosinophils 0.3 0.0 - 5.0 % % Basophils 2.1 (H) 0.0 - 1.0 % Absolute Neutrophils 4.20 1.80 - 8.50 K/uL Absolute Lymphocytes 0.50 (L) 0.60 - 3.20 K/uL Absolute Monocytes 0.90 0.00 - 1.00 K/uL Absolute Eosinophils 0.00 0.00 - 0.40 K/uL Absolute Basophils 0.10 0.00 - 0.10 K/uL Magnesium Result Value Ref Range MG 1.3 (L) 1.8 - 2.5 mg/dL Magnesium Result Value Ref Range MG 1.2 (L) 1.8 - 2.5 mg/dL Phosphorus Result Value Ref Range PHOSPHORUS 3.4 2.5 - 4.6 mg/dL Basic Metabolic Panel Result Value Ref Range NA 129 (L) 136 - 149 mmol/L K 3.1 (L) 3.5 - 5.1 mmol/L CL 99 98 - 109 mmol/L CO2 22 (L) 24 - 31 mmol/L ANION GAP 8 3 - 16 mmol/L GLUCOSE 111 (H) 70 - 109 mg/dL BUN 4 (L) 7 - 18 mg/dL Creatinine, Serum/Plasma 0.51 (L) 0.60 - 1.30 mg/dL eGFR if not >60 >=60 mL/min/1.73m2 CALCIUM 7.0 (L) 8.3 - 10.5 mg/dL BUN/CREA 7.8 Magnesium Result Value Ref Range MG 2.0 1.8 - 2.5 mg/dL , Urine, Qual Result Value Ref Range HCG SCREEN, URINE Negative Negative Albumin, Body Fluid Result Value Ref Range Albumin, Body Fluid <1.0 g/dL Source Peritoneal Cell Count with Differential, Body Fluid Result Value Ref Range Specimen Source Ascites BF Appearance Hazy (A) Clear BF Nucleated cells 96 0 - 150 cells/uL BF RBC 435 cells/uL BF % Neutrophils 14 % BF % Lymphocytes 18 % BF % Macro/Pierce 68 % BF Total cells counted 100 Protein, Body Fluid Result Value Ref Range Protein, BF 1.4 g/dL Source Peritoneal CK Total Result Value Ref Range CK TOTAL 325 (H) 22 - 269 U/L Comprehensive Metabolic Panel Result Value Ref Range NA 135 (L) 136 - 149 mmol/L K 3.6 3.5 - 5.1 mmol/L CL 102 98 - 109 mmol/L CO2 25 24 - 31 mmol/L ANION GAP 8 3 - 16 mmol/L GLUCOSE 104 70 - 109 mg/dL BUN 4 (L) 7 - 18 mg/dL Creatinine, Serum/Plasma 0.45 (L) 0.60 - 1.30 mg/dL eGFR if not >60 >=60 mL/min/1.73m2 CALCIUM 6.9 (L) 8.3 - 10.5 mg/dL ALBUMIN 1.5 (L) 3.2 - 5.0 g/dL BILIRUBIN TOTAL 1.6 (H) 0.1 - 1.5 mg/dL Total protein 5.6 (L) 6.0 - 7.8 g/dL AST 49 (H) 10 - 42 U/L ALT 12 6 - 45 U/L ALK PHOS 97 40 - 110 U/L GLOBULIN 4.1 (H) 2.1 - 3.8 g/dL Albumin/Globulin ratio 0.4 (L) 0.8 - 2.0 BUN/CREA 8.9 CBC with Differential Result Value Ref Range WBC 9.1 4.0 - 11.0 K/uL RBC 2.94 (L) 3.70 - 5.20 M/uL Hgb 9.6 (L) 11.5 - 16.0 g/dL Hct 28.2 (L) 34.0 - 47.0 % MCV 96.0 83.0 - 101.0 fL MCH 32.5 28.0 - 35.0 pg MCHC 33.8 32.0 - 36.0 g/dL RDW-CV 14.7 <15.0 % Platelet Count 83 (L) 140 - 440 K/uL MPV 8.8 fL % Neutrophils 84.8 (H) 45.0 - 82.0 % % Lymphocytes 4.0 (L) 20.0 - 45.0 % % Monocytes 9.1 4.0 - 12.0 % % Eosinophils 1.0 0.0 - 5.0 % % Basophils 1.1 (H) 0.0 - 1.0 % Absolute Neutrophils 7.70 1.80 - 8.50 K/uL Absolute Lymphocytes 0.40 (L) 0.60 - 3.20 K/uL Absolute Monocytes 0.80 0.00 - 1.00 K/uL Absolute Eosinophils 0.10 0.00 - 0.40 K/uL Absolute Basophils 0.10 0.00 - 0.10 K/uL Magnesium Result Value Ref Range MG 1.9 1.8 - 2.5 mg/dL Potassium Result Value Ref Range K 3.7 3.5 - 5.1 mmol/L Magnesium Result Value Ref Range MG 1.6 (L) 1.8 - 2.5 mg/dL B Type Natriuretic Peptide Result Value Ref Range BNP 1,644 (H) <100 pg/mL Basic Metabolic Panel Result Value Ref Range NA 133 (L) 136 - 149 mmol/L K 3.6 3.5 - 5.1 mmol/L CL 105 98 - 109 mmol/L CO2 23 (L) 24 - 31 mmol/L ANION GAP 5 3 - 16 mmol/L GLUCOSE 120 (H) 70 - 109 mg/dL BUN 6 (L) 7 - 18 mg/dL Creatinine, Serum/Plasma 0.57 (L) 0.60 - 1.30 mg/dL eGFR if not >60 >=60 mL/min/1.73m2 CALCIUM 7.4 (L) 8.3 - 10.5 mg/dL BUN/CREA 10.5 Magnesium Result Value Ref Range MG 1.6 (L) 1.8 - 2.5 mg/dL Comprehensive Metabolic Panel Result Value Ref Range NA 137 136 - 149 mmol/L K 4.1 3.5 - 5.1 mmol/L CL 108 98 - 109 mmol/L CO2 23 (L) 24 - 31 mmol/L ANION GAP 6 3 - 16 mmol/L GLUCOSE 101 70 - 109 mg/dL BUN 7 7 - 18 mg/dL Creatinine, Serum/Plasma 0.67 0.60 - 1.30 mg/dL eGFR if not >60 >=60 mL/min/1.73m2 CALCIUM 7.3 (L) 8.3 - 10.5 mg/dL ALBUMIN 1.4 (L) 3.2 - 5.0 g/dL BILIRUBIN TOTAL 1.1 0.1 - 1.5 mg/dL Total protein 4.8 (L) 6.0 - 7.8 g/dL AST 35 10 - 42 U/L ALT 12 6 - 45 U/L ALK PHOS 85 40 - 110 U/L GLOBULIN 3.4 2.1 - 3.8 g/dL Albumin/Globulin ratio 0.4 (L) 0.8 - 2.0 BUN/CREA 10.4 CBC with Differential Result Value Ref Range WBC 7.0 4.0 - 11.0 K/uL RBC 2.73 (L) 3.70 - 5.20 M/uL Hgb 8.9 (L) 11.5 - 16.0 g/dL Hct 26.3 (L) 34.0 - 47.0 % MCV 96.1 83.0 - 101.0 fL MCH 32.7 28.0 - 35.0 pg MCHC 34.0 32.0 - 36.0 g/dL RDW-CV 15.1 (H) <15.0 % Platelet Count 85 (L) 140 - 440 K/uL MPV 8.6 fL % Neutrophils 75.7 45.0 - 82.0 % % Lymphocytes 7.1 (L) 20.0 - 45.0 % % Monocytes 12.0 4.0 - 12.0 % % Eosinophils 4.6 0.0 - 5.0 % % Basophils 0.6 0.0 - 1.0 % Absolute Neutrophils 5.30 1.80 - 8.50 K/uL Absolute Lymphocytes 0.50 (L) 0.60 - 3.20 K/uL Absolute Monocytes 0.80 0.00 - 1.00 K/uL Absolute Eosinophils 0.30 0.00 - 0.40 K/uL Absolute Basophils 0.00 0.00 - 0.10 K/uL *Note: Due to a large number of results and/or encounters for the requested time period, so me results have not been displayed. A complete set of results can be found in Results Review . Laci Morrison MD 12/31/16 [id number] Lashaun Morris RN - 12/31/2016 2:37 PM PDTETOH withdrawal seizures x3 this AM first seizure at 0630 and second at 1130, third just at arrival to ED she is alert but postictal documented in this encounter Miscellaneous Notes Plan of Care - Amalia Mallory RN - 01/04/2017 4:14 PM PDTProblem: Patient Care Overv iew (Adult) Goal: Care Team Goals & Evaluation PROBLEM-RELATED GOALS: Shaila will have no further seizures through 01/03/2017 Shaila will have alcohol withdrawal sx managed with the CIWA protocol to score less than 3 by 01/03/2017 Shaila will have no falls through 01/03/2017 Shaila will have pain less than 2/10 throughout stay by 01/03/17 Shaila will ambulate independently with supervision in room by 01/03/17 Shaila's abnormal labs will improve by 01/03/17 STRATEGY TO ACHIEVE GOALS: Monitor for seizures, manage alcohol withdrawal sx with the CIWA protocol, administer routi ne librium as ordered. CIWA protocol as ordered, administer librium as ordered Assess fall risk every shift, bed alarm, hourly rounding, strict bedrest until Dr. Petty's a ctivity. Assess pain, offer PRN pain medications if non-pharmaceutical interventions not effective Assess gait when cleared off strict bedrest orders, encourage activity as tolerated Assess labs, administer medications as ordered, encourage nutritious meals, encourage fluid intake RESTRAINT-RELATED GOALS: STRATEGIES TO ACHIEVE RESTRAINT GOALS: Outcome: Adequate for Discharge Date Met: 01/04/17 Goal Evaluation: Pt has been free of seizures since admit to ICU. CIWA score 3. Librium given for anxiety . Has been ambulating independently, and has had no falls. Discharge instructions and Rx r eviewed with pt. lan of Care - Kellie Dee RN - 01/04/2017 11:31 AM PDTProblem: Discharge Planning Goal: Patient will be discharged in a safe manner Outcome: Unchanged I visited with Shaila this morning regarding discharge planning. I made a follow up appointm ent with Trixie Rose PA-C for 01/09/17, at 12:30 for follow up post-hospitaliza tion per Dr. Lomas's instructions. I spoke to Za De La Cruz CH, RN at [facility] regarding the appointment and requested she notify Trixie that Shaila requires a referral to their A&D department, which Shaila agrees to as well. Shaila said that transporta tion was a challenge at times and I reminded her that she can schedule transportation throug h the [facility] department at [facility] and she said that she would do that. Za also plans t o follow up with a home visit once she is home. Edd has arrived to transport her home onc e she is discharged today. There are no other questions or needs at this time. Electronica lly signed by: Erika Willis RN 01/04/2017 11:30 Discharge summary faxed to [facility] medical records. Cover sheet and fax received added to [facility] chart. Electronically signed by: Kellie Cramer 01/04/2017 16:35 lan of Care - Jocelyne Smart RN - 01/03/2017 5:29 PM PDTProblem: Patient Care Overview (Adult) Goal: Care Team Goals & Evaluation PROBLEM-RELATED GOALS: Shaila will have no further seizures through 01/03/2017 Shaila will have alcohol withdrawal sx managed with the CIWA protocol to score less than 3 by 01/03/2017 Shaila will have no falls through 01/03/2017 Shaila will have pain less than 2/10 throughout stay by 01/03/17 Shaila will ambulate independently with supervision in room by 01/03/17 Shaila's abnormal labs will improve by 01/03/17 STRATEGY TO ACHIEVE GOALS: Monitor for seizures, manage alcohol withdrawal sx with the CIWA protocol, administer routi ne librium as ordered. CIWA protocol as ordered, administer librium as ordered Assess fall risk every shift, bed alarm, hourly rounding, strict bedrest until Dr. Petty's a ctivity. Assess pain, offer PRN pain medications if non-pharmaceutical interventions not effective Assess gait when cleared off strict bedrest orders, encourage activity as tolerated Assess labs, administer medications as ordered, encourage nutritious meals, encourage fluid intake RESTRAINT-RELATED GOALS: STRATEGIES TO ACHIEVE RESTRAINT GOALS: Outcome: Improving Goal Evaluation: Alert, oriented. Up in room per self. CIWA scores low, 1600 =1. No Ativan required. No s eizures. Mg++ 1.2, 4 grams IV replacement infusing over 4 hours. lan of Hodan Justin RN - 01/02/2017 6:04 PM PDTProblem: Patient Care Overview (Adult) Goal: Care Team Goals & Evaluation PROBLEM-RELATED GOALS: Shaila will have no further seizures through 01/03/2017 Shaila will have alcohol withdrawal sx managed with the CIWA protocol to score less than 3 by 01/03/2017 Shaila will have no falls through 01/03/2017 Shaila will have pain less than 2/10 throughout stay by 01/03/17 Shaila will ambulate independently with supervision in room by 01/03/17 Shaila's abnormal labs will improve by 01/03/17 STRATEGY TO ACHIEVE GOALS: Monitor for seizures, manage alcohol withdrawal sx with the CIWA protocol, administer routi ne librium as ordered. CIWA protocol as ordered, administer librium as ordered Assess fall risk every shift, bed alarm, hourly rounding, strict bedrest until Dr. Petty's a ctivity. Assess pain, offer PRN pain medications if non-pharmaceutical interventions not effective Assess gait when cleared off strict bedrest orders, encourage activity as tolerated Assess labs, administer medications as ordered, encourage nutritious meals, encourage fluid intake RESTRAINT-RELATED GOALS: STRATEGIES TO ACHIEVE RESTRAINT GOALS: Outcome: Improving Goal Evaluation: Patient Alert and oriented X3, forgets date at times. LSC on Ra. Sinus tach 100's. Couple soft stools. Jackson out, voiding well. No seizures. CIWA at 3 all shift. Oral Librium and IV ABX given. On Enoxaparin and SCD's. Independent in bed. Uses bedpan adequately. Ready for am bulation when OK's per I/O's adequate. Labs improving. C/o slight headache intermittentl y. Appears more awake than yesterday. Uses call light appropriately. Friend Edd monae. lan of Dorothea Chen RN - 01/01/2017 7:14 PM PDTProblem: Patient Care Overview (Adult) Goal: Care Team Goals & Evaluation PROBLEM-RELATED GOALS: Shaila will have no further seizures through 01/03/2017 Shaila will have alcohol withdrawal sx managed with the CIWA protocol to score less than 3 by 01/03/2017 Shaila will have no falls through 01/03/2017 STRATEGY TO ACHIEVE GOALS: Monitor for seizures, manage alcohol withdrawal sx with the CIWA protocol, administer routi ne librium as ordered. CIWA protocol as ordered, administer librium as ordered Assess fall risk every shift, bed alarm, hourly rounding, strict bedrest until Dr. Petty's a ctivity. RESTRAINT-RELATED GOALS: STRATEGIES TO ACHIEVE RESTRAINT GOALS: Outcome: Improving Goal Evaluation: Shaila has not had any seizures today. Her alertness had improved throughout the shift. Sh e only received Lorazepam x 1 for a positive CIWA score. She has been afebrile today. No f alls. She moves in bed independently. Librium was started on a routine schedule today. lan of Care - Erika Caicedo RN - 01/01/2017 4:04 PM PDTProblem: Discharge Planning Goal: Patient will be discharged in a safe manner Outcome: Improving I visited with Shaila this afternoon regarding discharge planning. She lives with her Aunt Channing mota in a one level home along with her sister, Anette, and a family friend, Edd. Her PCP is Trixie Rose PA-C. She uses the [facility] pharmacy as well as the [facility] in [place], [place]. She does not own any DME. I let her know about [facility] as well as [facility] if she were to need any DME. She is agreeable to Home Health services as well a [facility] health services. I notified Za De La Cruz CH RN at [facility] elisabeth t this patient was here and to anticipate her needs at time of discharge. She appreciated t he call and said that she knew that she was seen in our ER. Shaila absolutely refused to allo w me to send a referral to [facility] or any other SNF. She is adament that she is going h ome. She said that either her friends or Edd will transport her home at time of discharge . I let her know that CM will follow up with her closer to discharge regarding discharge an d D&A needs. CM please continue to follow. 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 To have paracentesis today documented in this en counter Plan of Treatment Not on filedocumented as of this encounter Procedures + +--------+ + + + | Procedure Name | Priori | Date/Time | Associated Diagnosis | Comments | | | ty | | | | + +--------+ + + + | EEG | Routin | 01/04/2017 | | Results for this | | | e | 5:41 PM | | procedure are in the | | | | PDT | | results section. | + +--------+ + + + | CULTURE, BLOOD | STAT | 01/04/2017 | | Results for this | | | | 5:12 AM | | procedure are in the | | | | PDT | | results section. | + +--------+ + + + | CBC WITH MANUAL | Routin | 01/04/2017 | | Results for this | | DIFFERENTIAL | e | 5:07 AM | | procedure are in the | | | | PDT | | results section. | + +--------+ + + + | MANUAL DIFFERENTIAL | Routin | 01/04/2017 | | Results for this | | | e | 5:07 AM | | procedure are in the | | | | PDT | | results section. | + +--------+ + + + | PROCALCITONIN, SERUM | Routin | 01/04/2017 | | Results for this | | | e | 5:07 AM | | procedure are in the | | | | PDT | | results section. | + +--------+ + + + | CULTURE, BLOOD | STAT | 01/04/2017 | | Results for this | | | | 5:07 AM | | procedure are in the | | | | PDT | | results section. | + +--------+ + + + | CBC NO DIFFERENTIAL | Routin | 01/04/2017 | | Results for this | | | e | 5:07 AM | | procedure are in the | | | | PDT | | results section. | + +--------+ + + + | MAGNESIUM | Routin | 01/04/2017 | | Results for this | | | e | 5:07 AM | | procedure are in the | | | | PDT | | results section. | + +--------+ + + + | COMPREHENSIVE | Routin | 01/04/2017 | | Results for this | | METABOLIC PANEL | e | 5:07 AM | | procedure are in the | | | | PDT | | results section. | + +--------+ + + + | XR CHEST PA AND | Routin | 01/03/2017 | | Results for this | | LATERAL | e | 3:54 PM | | procedure are in the | | | | PDT | | results section. | + +--------+ + + + | CBC WITH MANUAL | Routin | 01/03/2017 | | Results for this | | DIFFERENTIAL | e | 12:47 PM | | procedure are in the | | | | PDT | | results section. | + +--------+ + + + | MANUAL DIFFERENTIAL | Routin | 01/03/2017 | | Results for this | | | e | 12:47 PM | | procedure are in the | | | | PDT | | results section. | + +--------+ + + + | CBC NO DIFFERENTIAL | Routin | 01/03/2017 | | Results for this | | | e | 12:47 PM | | procedure are in the | | | | PDT | | results section. | + +--------+ + + + | MAGNESIUM | Routin | 01/03/2017 | | Results for this | | | e | 12:47 PM | | procedure are in the | | | | PDT | | results section. | + +--------+ + + + | COMPREHENSIVE | Routin | 01/03/2017 | | Results for this | | METABOLIC PANEL | e | 12:47 PM | | procedure are in the | | | | PDT | | results section. | + +--------+ + + + | URINALYSIS WITH | Routin | 01/02/2017 | | Results for this | | MICROSCOPIC WITH | e | 10:12 AM | | procedure are in the | | CULTURE IF INDICATED | | PDT | | results section. | + +--------+ + + + | EXTRA LAVENDER TOP | Routin | 01/02/2017 | | Results for this | | TUBE | e | 3:54 AM | | procedure are in the | | | | PDT | | results section. | + +--------+ + + + | CREATININE | Routin | 01/02/2017 | | Results for this | | | e | 3:54 AM | | procedure are in the | | | | PDT | | results section. | + +--------+ + + + | CT CHEST WO CONTRAST | NEREYDA | 01/01/2017 | | Results for this | | | | 4:37 PM | | procedure are in the | | | | PDT | | results section. | + +--------+ + + + | US GUIDED | Routin | 01/01/2017 | | Results for this | | PARACENTESIS | e | 12:02 PM | | procedure are in the | | | | PDT | | results section. | + +--------+ + + + | CELL COUNT WITH | Routin | 01/01/2017 | | Results for this | | DIFFERENTIAL, BODY | e | 11:52 AM | | procedure are in the | | FLUID | | PDT | | results section. | + +--------+ + + + | ALBUMIN, BODY FLUID | Routin | 01/01/2017 | | Results for this | | | e | 11:52 AM | | procedure are in the | | | | PDT | | results section. | + +--------+ + + + | CULTURE, BODY FLUID, | Routin | 01/01/2017 | | Results for this | | AEROBE | e | 11:51 AM | | procedure are in the | | | | PDT | | results section. | + +--------+ + + + | CULTURE, BODY FLUID, | Routin | 01/01/2017 | | Results for this | | ANAEROBE | e | 11:51 AM | | procedure are in the | | | | PDT | | results section. | + +--------+ + + + | CULTURE, BODY FLUID, | Routin | 01/01/2017 | | Results for this | | STERILE, SMEAR, | e | 11:51 AM | | procedure are in the | | WITH ANAEROBES | | PDT | | results section. | + +--------+ + + + | CULTURE, MRSA | Routin | 01/01/2017 | | Results for this | | | e | 9:25 AM | | procedure are in the | | | | PDT | | results section. | + +--------+ + + + | PROTIME INR | Routin | 01/01/2017 | | Results for this | | | e | 4:22 AM | | procedure are in the | | | | PDT | | results section. | + +--------+ + + + | CBC WITH | Routin | 01/01/2017 | | Results for this | | DIFFERENTIAL | e | 4:22 AM | | procedure are in the | | | | PDT | | results section. | + +--------+ + + + | MAGNESIUM | Routin | 01/01/2017 | | Results for this | | | e | 4:22 AM | | procedure are in the | | | | PDT | | results section. | + +--------+ + + + | COMPREHENSIVE | Routin | 01/01/2017 | | Results for this | | METABOLIC PANEL | e | 4:22 AM | | procedure are in the | | | | PDT | | results section. | + +--------+ + + + | AMMONIA | STAT | 12/31/2016 | | Results for this | | | | 8:55 PM | | procedure are in the | | | | PDT | | results section. | + +--------+ + + + | URINALYSIS WITH | STAT | 12/31/2016 | | Results for this | | MICROSCOPIC WITH | | 5:22 PM | | procedure are in the | | CULTURE IF INDICATED | | PDT | | results section. | + +--------+ + + + | CULTURE, URINE | Routin | 12/31/2016 | | Results for this | | | e | 5:22 PM | | procedure are in the | | | | PDT | | results section. | + +--------+ + + + | XR CHEST AP PORTABLE | STAT | 12/31/2016 | | Results for this | | | | 4:59 PM | | procedure are in the | | | | PDT | | results section. | + +--------+ + + + | URINALYSIS WITH | STAT | 12/31/2016 | | Results for this | | MICROSCOPIC WITH | | 3:57 PM | | procedure are in the | | CULTURE IF INDICATED | | PDT | | results section. | + +--------+ + + + | CULTURE, BLOOD | STAT | 12/31/2016 | | Results for this | | | | 3:23 PM | | procedure are in the | | | | PDT | | results section. | + +--------+ + + + | CULTURE, BLOOD | STAT | 12/31/2016 | | Results for this | | | | 3:21 PM | | procedure are in the | | | | PDT | | results section. | + +--------+ + + + | LACTIC ACID | STAT | 12/31/2016 | | Results for this | | | | 3:21 PM | | procedure are in the | | | | PDT | | results section. | + +--------+ + + + | EXTRA GREEN TOP TUBE | Routin | 12/31/2016 | | Results for this | | | e | 2:46 PM | | procedure are in the | | | | PDT | | results section. | + +--------+ + + + | EXTRA BLUE TOP TUBE | Routin | 12/31/2016 | | Results for this | | | e | 2:46 PM | | procedure are in the | | | | PDT | | results section. | + +--------+ + + + | CBC NO DIFFERENTIAL | STAT | 12/31/2016 | | Results for this | | | | 2:45 PM | | procedure are in the | | | | PDT | | results section. | + +--------+ + + + | LIPASE | STAT | 12/31/2016 | | Results for this | | | | 2:45 PM | | procedure are in the | | | | PDT | | results section. | + +--------+ + + + | COMPREHENSIVE | STAT | 12/31/2016 | | Results for this | | METABOLIC PANEL | | 2:45 PM | | procedure are in the | | | | PDT | | results section. | + +--------+ + + + documented in this encounter Results EEG (01/04/2017 5:41 PM PDT) + + + | Narrative | Performed At | + + + | Ximena Christianson MD 01/04/2017 17:47 EEG REPORT | | | GENERAL DESCRIPTION: This was a 19 channel awake EEG recording | | | with International 10/20 electrode placements. The background | | | activity consisted of symmetrical, medium amplitude fast frequency | | | 18-20Hz beta diffusely ACTIVATION & SLEEP: No change of the | | | background activity with eye opening was noted. Hyperventilation | | | produced no significant changes to the background activity. Photic | | | stimulation produced no significant changes to the background | | | activity. No sleep or drowsiness was noted. OTHER DATA: No | | | epileptiform discharges were noted. CLINICAL IMPRESSION: This | | | EEG is abnormal. Background was a diffuse fast frequency beta | | | 18-20Hz. No other focal, diffuse or generalized abnormalities were | | | noted.The absence of epileptiform discharges during the EEG | | | recording does not rule out the diagnosis of a seizure disorder. | | | Medication effect such as benzodiazepine use may be considered to | | | cause beta waves. Clinical correlation is recommended. Thank | | | you for the courtesy of this referral. Sincerely, Ximena | | | Sammy | | + + + Culture, Blood (01/04/2017 5:12 AM PDT) + + + + + + | Component | Value | Ref Range | Performed | Pathologist | | | | | At | Signature | + + + + + + | Culture | No growth after 5 days | | [facility] | | | | incubation. | | [facility] | | | | | | [facility]ICAL | | | | | | CENTER - | | | | | | LABORATORY | | + + + + + + + + | Specimen | + + | Blood - Peripheral | | blood specimen | | (specimen) | + + + + + + + | Performing | Address | City/State/Zipcode | Phone Number | | Organization | | | | + + + + + | [facility] | [address] | [place] | [phone] | | [facility] | | [id number] | | | - LABORATORY | | | | + + + + + Differential, Blood, Manual (01/04/2017 5:07 AM PDT) + + + + + + | Component | Value | Ref Range | Performed | Pathologist | | | | | At | Signature | + + + + + + | % Segmented | 47.4 (L) | 50.0 - 70.0 % | [facility] | | | | | | [facility] | | | Neutrophils | | | MEDICAL | | | | | | CENTER - | | | | | | LABORATORY | | + + + + + + | % | 40.4 (H) | 20.0 - 40.0 % | [facility] | | | Lymphocytes | | | [facility] | | | | | | MEDICAL | | | | | | CENTER - | | | | | | LABORATORY | | + + + + + + | % Monocytes | 8.8 (H) | 1.0 - 6.0 % | [facility] | | | | | | [facility] | | | | | | MEDICAL | | | | | | CENTER - | | | | | | LABORATORY | | + + + + + + | % | 3.5 | 1.0 - 5.0 % | [facility] | | | Eosinophils | | | [facility] | | | | | | MEDICAL | | | | | | CENTER - | | | | | | LABORATORY | | + + + + + + | Absolute | 2.18 | 1.80 - 7.70 | [facility] | | | Segmented | | K/uL | [facility] | | | Neutrophils | | | MEDICAL | | | | | | CENTER - | | | | | | LABORATORY | | + + + + + + | Absolute | 1.86 | 1.00 - 3.40 | [facility] | | | Lymphocytes | | K/uL | [facility] | | | | | | MEDICAL | | | | | | CENTER - | | | | | | LABORATORY | | + + + + + + | Absolute | 0.40 | 0.00 - 0.80 | [facility] | | | Monocytes | | K/uL | [facility] | | | | | | MEDICAL | | | | | | CENTER - | | | | | | LABORATORY | | + + + + + + | Absolute | 0.16 | 0.00 - 0.50 | [facility] | | | Eosinophils | | K/uL | [facility] | | | | | | MEDICAL | | | | | | CENTER - | | | | | | LABORATORY | | + + + + + + | Total Cells | 57 | | [facility] | | | Counted | | | [facility] | | | | | | MEDICAL | | | | | | CENTER - | | | | | | LABORATORY | | + + + + + + | RBC | Normal | | [facility] | | | Morphology | | | [facility] | | | | | | MEDICAL | | | | | | CENTER - | | | | | | LABORATORY | | + + + + + + | WBC | Normal | | [facility] | | | Morphology | | | [facility] | | | | | | MEDICAL | | | | | | CENTER - | | | | | | LABORATORY | | + + + + + + | Platelet | Normal | | [facility] | | | Morphology | | | [facility] | | | | | | MEDICAL | | | | | | CENTER - | | | | | | LABORATORY | | + + + + + + + + | Specimen | + + | Blood | + + + + + + + | Performing | Address | City/State/Zipcode | Phone Number | | Organization | | | | + + + + + | [facility] | [address] | [place] | [phone] | | [facility] | | [address] | | | - LABORATORY | | | | + + + + + CBC no Differential (01/04/2017 5:07 AM PDT) + + + + + + | Component | Value | Ref Range | Performed | Pathologist | | | | | At | Signature | + + + + + + | White Blood | 4.6 | 4.0 - 11.0 K/uL | [facility] | | | Cells | | | [facility] | | | | | | MEDICAL | | | | | | CENTER - | | | | | | LABORATORY | | + + + + + + | Red Blood | 2.89 (L) | 3.70 - 5.20 | [facility] | | | Cells | | M/uL | [facility] | | | | | | MEDICAL | | | | | | CENTER - | | | | | | LABORATORY | | + + + + + + | Hemoglobin | 9.4 (L) | 11.5 - 16.0 | [facility] | | | | | g/dL | [facility] | | | | | | MEDICAL | | | | | | CENTER - | | | | | | LABORATORY | | + + + + + + | Hematocrit | 27.3 (L) | 34.0 - 47.0 % | [facility] | | | | | | [facility] | | | | | | MEDICAL | | | | | | CENTER - | | | | | | LABORATORY | | + + + + + + | MCV | 94.5 | 83.0 - 101.0 fL | [facility] | | | | | | [facility] | | | | | | MEDICAL | | | | | | CENTER - | | | | | | LABORATORY | | + + + + + + | MCH | 32.3 | 28.0 - 35.0 pg | [facility] | | | | | | [facility] | | | | | | MEDICAL | | | | | | CENTER - | | | | | | LABORATORY | | + + + + + + | MCHC | 34.2 | 32.0 - 36.0 | [facility] | | | | | g/dL | [facility] | | | | | | MEDICAL | | | | | | CENTER - | | | | | | LABORATORY | | + + + + + + | RDW-CV | 15.6 (H) | <15.0 % | [facility] | | | | | | [facility] | | | | | | MEDICAL | | | | | | CENTER - | | | | | | LABORATORY | | + + + + + + | Platelet | 118 (L) | 140 - 440 K/uL | [facility] | | | Count | | | [facility] | | | | | | MEDICAL | | | | | | CENTER - | | | | | | LABORATORY | | + + + + + + | MPV | 8.1 | fL | [facility] | | | | | | [facility] | | | | | | MEDICAL | | | | | | CENTER - | | | | | | LABORATORY | | + + + + + + + + | Specimen | + + | Blood | + + + + + + + | Performing | Address | City/State/Zipcode | Phone Number | | Organization | | | | + + + + + | [facility] | [address] | [place] | [phone] | | [facility] | | [address] | | | - LABORATORY | | | | + + + + + Comprehensive Metabolic Panel (01/04/2017 5:07 AM PDT) + + + + + + | Component | Value | Ref Range | Performed | Pathologist | | | | | At | Signature | + + + + + + | Na | 131 (L) | 136 - 149 | [facility] | | | | | mmol/L | [facility] | | | | | | MEDICAL | | | | | | CENTER - | | | | | | LABORATORY | | + + + + + + | K | 3.8 | 3.5 - 5.1 | [facility] | | | | | mmol/L | [facility] | | | | | | MEDICAL | | | | | | CENTER - | | | | | | LABORATORY | | + + + + + + | Cl | 106 | 98 - 109 mmol/L | [facility] | | | | | | [facility] | | | | | | MEDICAL | | | | | | CENTER - | | | | | | LABORATORY | | + + + + + + | CO2 | 19 (L) | 24 - 31 mmol/L | [facility] | | | | | | [facility] | | | | | | MEDICAL | | | | | | CENTER - | | | | | | LABORATORY | | + + + + + + | Anion Gap | 6 | 3 - 16 mmol/L | [facility] | | | | | | [facility] | | | | | | MEDICAL | | | | | | CENTER - | | | | | | LABORATORY | | + + + + + + | Glucose | 90 | 70 - 109 mg/dL | [facility] | | | | | | [facility] | | | | | | MEDICAL | | | | | | CENTER - | | | | | | LABORATORY | | + + + + + + | BUN | 9 | 7 - 18 mg/dL | [facility] | | | | | | [facility] | | | | | | MEDICAL | | | | | | CENTER - | | | | | | LABORATORY | | + + + + + + | Creatinine | 0.47 (L) | 0.60 - 1.30 | [facility] | | | | | mg/dL | [facility] | | | | | | MEDICAL | | | | | | CENTER - | | | | | | LABORATORY | | + + + + + + | eGFR, | >60Comment: GLOMERULAR | >=60 | [facility] | | | non- | FILTRATION | mL/min/1.73m2 | [facility] | | | [place] | RATE,ESTIMATED | | MEDICAL | | | | mL/min/1.52d3Igus than | | CENTER - | | | | 60 Chronic kidney | | LABORATORY | | | | disease,if found over a | | | | | | 3-month period.Less than | | | | | | 15 Kidney failureFor | | | | | | | | | | | | Americans,multiply the | | | | | | calculated GFR by 1.21. | | | | | | | | | | + + + + + + | Calcium | 7.7 (L) | 8.3 - 10.5 | [facility] | | | | | mg/dL | [facility] | | | | | | MEDICAL | | | | | | CENTER - | | | | | | LABORATORY | | + + + + + + | Albumin | 1.7 (L) | 3.2 - 5.0 g/dL | [facility] | | | | | | [facility] | | | | | | MEDICAL | | | | | | CENTER - | | | | | | LABORATORY | | + + + + + + | Bilirubin | 1.0 | 0.1 - 1.5 mg/dL | [facility] | | | Total | | | [facility] | | | | | | MEDICAL | | | | | | CENTER - | | | | | | LABORATORY | | + + + + + + | Total | 5.7 (L) | 6.0 - 7.8 g/dL | [facility] | | | Protein | | | [facility] | | | | | | MEDICAL | | | | | | CENTER - | | | | | | LABORATORY | | + + + + + + | AST | 46 (H) | 10 - 42 U/L | [facility] | | | | | | [facility] | | | | | | MEDICAL | | | | | | CENTER - | | | | | | LABORATORY | | + + + + + + | ALT | 18 | 6 - 45 U/L | [facility] | | | | | | [facility] | | | | | | MEDICAL | | | | | | CENTER - | | | | | | LABORATORY | | + + + + + + | Alkaline | 150 (H) | 40 - 110 U/L | [facility] | | | Phosphatase | | | [facility] | | | | | | MEDICAL | | | | | | CENTER - | | | | | | LABORATORY | | + + + + + + | Globulin | 4.0 (H) | 2.1 - 3.8 g/dL | [facility] | | | | | | [facility] | | | | | | MEDICAL | | | | | | CENTER - | | | | | | LABORATORY | | + + + + + + | Albumin/Joana | 0.4 (L) | 0.8 - 2.0 | [facility] | | | bulin Ratio | | | [facility] | | | | | | MEDICAL | | | | | | CENTER - | | | | | | LABORATORY | | + + + + + + | BUN/Creatin | 19.1 | | [facility] | | | ine Ratio | | | [facility] | | | | | | MEDICAL | | | | | | CENTER - | | | | | | LABORATORY | | + + + + + + + + | Specimen | + + | Blood | + + + + + + + | Performing | Address | City/State/Zipcode | Phone Number | | Organization | | | | + + + + + | [facility] | [address] | [place] | [phone] | | [facility] | | [id number] | | | - LABORATORY | | | | + + + + + Procalcitonin (01/04/2017 5:07 AM PDT) + + + + + + | Component | Value | Ref Range | Performed | Pathologist | | | | | At | Signature | + + + + + + | Procalciton | 0.16 | <=0.50 ng/mL | [facility] | | | in | | | [facility] | | | | | | MEDICAL | | | | | | CENTER - | | | | | | LABORATORY | | + + + + + + | Comment | Comment: < 0.50 | | [facility] | | | | ng/mL:Procalcitonin | | [facility] | | | | levels below 0.50 ng/mL | | MEDICAL | | | | on the first day of | | CENTER - | | | | admission represents a | | LABORATORY | | | | low risk for progression | | | | | | to severe sepsis and/or | | | | | | septic shock, however | | | | | | these do not exclude an | | | | | | infection, because | | | | | | localized infections | | | | | | (without systemic signs) | | | | | | may also be associated | | | | | | with such low levels. | | | | | | > 2.00 | | | | | | ng/mL:Procalcitonin | | | | | | levels above 2.00 ng/mL | | | | | | on the first day of | | | | | | admission represents a | | | | | | high risk for | | | | | | progression to severe | | | | | | sepsis and/or septic | | | | | | shock. If the | | | | | | procalcitonin | | | | | | measurement is performed | | | | | | shortly after the | | | | | | systemic infection | | | | | | process has started | | | | | | (usually less than 6 | | | | | | hours), these values may | | | | | | still be low. As | | | | | | various non-infectious | | | | | | conditions are known to | | | | | | induce procalcitonin as | | | | | | well, procalcitonin | | | | | | levels between 0.50 | | | | | | ng/mL and 2.00 ng/mL | | | | | | should be reviewed | | | | | | carefully to take into | | | | | | account the specific | | | | | | clinical background and | | | | | | condition(s) of the | | | | | | individual patient. | | | | + + + + + + + + | Specimen | + + | Blood | + + + + + + + | Performing | Address | City/State/Zipcode | Phone Number | | Organization | | | | + + + + + | [facility] | [address] | [place] | [phone] | | [facility] | | [address] | | | - LABORATORY | | | | + + + + + Culture, Blood (01/04/2017 5:07 AM PDT) + + + + + + | Component | Value | Ref Range | Performed | Pathologist | | | | | At | Signature | + + + + + + | Culture | No growth after 5 days | | [facility] | | | | incubation. | | [facility] | | | | | | MEDICAL | | | | | | CENTER - | | | | | | LABORATORY | | + + + + + + + + | Specimen | + + | Blood - Peripheral | | blood specimen | | (specimen) | + + + + + + + | Performing | Address | City/State/Zipcode | Phone Number | | Organization | | | | + + + + + | [facility] | [address] | [place] | [phone] | | [facility] | | [address] | | | - LABORATORY | | | | + + + + + Magnesium (01/04/2017 5:07 AM PDT) + +---------+ + + + | Component | Value | Ref Range | Performed | Pathologist | | | | | At | Signature | + +---------+ + + + | Magnesium | 1.7 (L) | 1.8 - 2.5 mg/dL | [facility] | | | | | | [facility] | | | | | | [facility]ICAL | | | | | | CENTER - | | | | | | LABORATORY | | + +---------+ + + + + + | Specimen | + + | Blood | + + + + + + + | Performing | Address | City/State/Zipcode | Phone Number | | Organization | | | | + + + + + | [facility] | [address] | [place], [place] | [phone] | | [facility] | | [address] | | | - LABORATORY | | | | + + + + + XR Chest PA and Lateral (01/03/2017 3:54 PM PDT) + + | Specimen | + + | | + + + + + | Narrative | Performed At | + + + | XR CHEST PA AND LATERAL 01/03/2017 3:24 PM HISTORY: fever. | [facility] | | COMPARISON: 01/01/2017 Findings: The bilateral lungs are clear | | | with no evidence for pleural effusion or pneumothorax. Heart size is | | | within upper limits of normal for size. Pulmonary vasculature is | | | within normal limits. Aorta is normal. Mediastinum is unremarkable. | | | No acute osseous or soft tissue abnormality identified. | | | IMPRESSION - No acute intrathoracic abnormality identified. | | | Dictated and Signed by: Bryan Freedman MD Electronically signed: | | | 01/03/2017 8:11 PM | | + + + + + | Procedure Note | + + | Jermaine, Rad Results In - 01/03/2017 8:14 PM PDT XR CHEST PA AND LATERAL 01/03/2017 3:24 | | PMHISTORY: fever.COMPARISON: 01/01/2017Findings:The bilateral lungs are clear with no | | evidence for pleural effusion orpneumothorax. Heart size is within upper limits of | | normal for size. Pulmonaryvasculature is within normal limits. Aorta is normal. | | Mediastinum isunremarkable. No acute osseous or soft tissue abnormality identified. | | IMPRESSION - No acute intrathoracic abnormality identified.Dictated and Signed by: Bryan | | MD Tano Electronically signed: 01/03/2017 8:11 PM | |The bilateral lungs are clear with no evidence for pleural effusion or | |pneumothorax. Heart size is within upper limits of normal for size. Pulmonary | |vasculature is within normal limits. Aorta is normal. Mediastinum is | |unremarkable. No acute osseous or soft tissue abnormality identified. | | | |IMPRESSION - | |No acute intrathoracic abnormality identified. | | | |Dictated and Signed by: Bryan Freedman MD | | Electronically signed: 01/03/2017 8:11 PM | + + + +---------+ + + | Performing | Address | City/State/Zipcode | Phone Number | | Organization | | | | + +---------+ + + | [facility] | | | | + +---------+ + + Magnesium (01/03/2017 12:47 PM PDT) + +---------+ + + + | Component | Value | Ref Range | Performed | Pathologist | | | | | At | Signature | + +---------+ + + + | Magnesium | 1.2 (L) | 1.8 - 2.5 mg/dL | [facility] | | | | | | [facility] | | | | | | MEDICAL | | | | | | CENTER - | | | | | | LABORATORY | | + +---------+ + + + + + | Specimen | + + | Blood | + + + + + + + | Performing | Address | City/State/Zipcode | Phone Number | | Organization | | | | + + + + + | [facility] | [address] | [place] | [phone] | | [facility] | | [address] | | | - LABORATORY | | | | + + + + + Differential, Blood, Manual (01/03/2017 12:47 PM PDT) + + + + + + | Component | Value | Ref Range | Performed | Pathologist | | | | | At | Signature | + + + + + + | % Segmented | 61.0 | 50.0 - 70.0 % | [facility] | | | | | | [facility] | | | Neutrophils | | | MEDICAL | | | | | | CENTER - | | | | | | LABORATORY | | + + + + + + | % | 15.0 (L) | 20.0 - 40.0 % | [facility] | | | Lymphocytes | | | [facility] | | | | | | MEDICAL | | | | | | CENTER - | | | | | | LABORATORY | | + + + + + + | % Monocytes | 8.0 (H) | 1.0 - 6.0 % | [facility] | | | | | | [facility] | | | | | | MEDICAL | | | | | | CENTER - | | | | | | LABORATORY | | + + + + + + | % | 5.0 | 1.0 - 5.0 % | [facility] | | | Eosinophils | | | [facility] | | | | | | MEDICAL | | | | | | CENTER - | | | | | | LABORATORY | | + + + + + + | % Bands | 11.0 (H) | 0.0 - 5.0 % | [facility] | | | | | | [facility] | | | | | | MEDICAL | | | | | | CENTER - | | | | | | LABORATORY | | + + + + + + | Absolute | 3.11 | 1.80 - 7.70 | [facility] | | | Segmented | | K/uL | [facility] | | | Neutrophils | | | MEDICAL | | | | | | CENTER - | | | | | | LABORATORY | | + + + + + + | Absolute | 0.77 (L) | 1.00 - 3.40 | [facility] | | | Lymphocytes | | K/uL | [facility] | | | | | | MEDICAL | | | | | | CENTER - | | | | | | LABORATORY | | + + + + + + | Absolute | 0.41 | 0.00 - 0.80 | [facility] | | | Monocytes | | K/uL | [facility] | | | | | | MEDICAL | | | | | | CENTER - | | | | | | LABORATORY | | + + + + + + | Absolute | 0.26 | 0.00 - 0.50 | [facility] | | | Eosinophils | | K/uL | [facility] | | | | | | MEDICAL | | | | | | CENTER - | | | | | | LABORATORY | | + + + + + + | Absolute | 0.56 | 0.00 - 1.50 | [facility] | | | Bands | | K/uL | [facility] | | | | | | MEDICAL | | | | | | CENTER - | | | | | | LABORATORY | | + + + + + + | Total Cells | 100 | | [facility] | | | Counted | | | [facility] | | | | | | MEDICAL | | | | | | CENTER - | | | | | | LABORATORY | | + + + + + + | WBC | Normal | | [facility] | | | Morphology | | | [facility] | | | | | | MEDICAL | | | | | | CENTER - | | | | | | LABORATORY | | + + + + + + | Platelet | Decreased (A) | Adequate | [facility] | | | Estimate | | | [facility] | | | | | | MEDICAL | | | | | | CENTER - | | | | | | LABORATORY | | + + + + + + | RBC | Moderate (A) | (none) | [facility] | | | Microcytes | | | [facility] | | | | | | MEDICAL | | | | | | CENTER - | | | | | | LABORATORY | | + + + + + + | Acanthocyte | Slight (A) | (none) | [facility] | | | s | | | [facility] | | | | | | MEDICAL | | | | | | CENTER - | | | | | | LABORATORY | | + + + + + + + + | Specimen | + + | Blood | + + + + + + + | Performing | Address | City/State/Zipcode | Phone Number | | Organization | | | | + + + + + | [facility] | [address] | [place] | [phone] | | [facility] | | [address] | | | - LABORATORY | | | | + + + + + CBC no Differential (01/03/2017 12:47 PM PDT) + + + + + + | Component | Value | Ref Range | Performed | Pathologist | | | | | At | Signature | + + + + + + | White Blood | 5.1 | 4.0 - 11.0 K/uL | [facility] | | | Cells | | | [facility] | | | | | | MEDICAL | | | | | | CENTER - | | | | | | LABORATORY | | + + + + + + | Red Blood | 3.08 (L) | 3.70 - 5.20 | [facility] | | | Cells | | M/uL | [facility] | | | | | | MEDICAL | | | | | | CENTER - | | | | | | LABORATORY | | + + + + + + | Hemoglobin | 9.9 (L) | 11.5 - 16.0 | [facility] | | | | | g/dL | [facility] | | | | | | MEDICAL | | | | | | CENTER - | | | | | | LABORATORY | | + + + + + + | Hematocrit | 29.1 (L) | 34.0 - 47.0 % | [facility] | | | | | | [facility] | | | | | | MEDICAL | | | | | | CENTER - | | | | | | LABORATORY | | + + + + + + | MCV | 94.6 | 83.0 - 101.0 fL | [facility] | | | | | | [facility] | | | | | | MEDICAL | | | | | | CENTER - | | | | | | LABORATORY | | + + + + + + | MCH | 32.1 | 28.0 - 35.0 pg | [facility] | | | | | | [facility] | | | | | | MEDICAL | | | | | | CENTER - | | | | | | LABORATORY | | + + + + + + | MCHC | 33.9 | 32.0 - 36.0 | [facility] | | | | | g/dL | [facility] | | | | | | MEDICAL | | | | | | CENTER - | | | | | | LABORATORY | | + + + + + + | RDW-CV | 15.7 (H) | <15.0 % | [facility] | | | | | | [facility] | | | | | | MEDICAL | | | | | | CENTER - | | | | | | LABORATORY | | + + + + + + | Platelet | 127 (L) | 140 - 440 K/uL | [facility] | | | Count | | | [facility] | | | | | | MEDICAL | | | | | | CENTER - | | | | | | LABORATORY | | + + + + + + | MPV | 8.2 | fL | [facility] | | | | | | [facility] | | | | | | MEDICAL | | | | | | CENTER - | | | | | | LABORATORY | | + + + + + + + + | Specimen | + + | Blood | + + + + + + + | Performing | Address | City/State/Zipcode | Phone Number | | Organization | | | | + + + + + | [facility] | [address] | [place] | [phone] | | [facility] | | [address] | | | - LABORATORY | | | | + + + + + Comprehensive Metabolic Panel (01/03/2017 12:47 PM PDT) + + + + + + | Component | Value | Ref Range | Performed | Pathologist | | | | | At | Signature | + + + + + + | Na | 128 (L) | 136 - 149 | [facility] | | | | | mmol/L | [facility] | | | | | | MEDICAL | | | | | | CENTER - | | | | | | LABORATORY | | + + + + + + | K | 3.6 | 3.5 - 5.1 | [facility] | | | | | mmol/L | [facility] | | | | | | MEDICAL | | | | | | CENTER - | | | | | | LABORATORY | | + + + + + + | Cl | 105 | 98 - 109 mmol/L | [facility] | | | | | | [facility] | | | | | | MEDICAL | | | | | | CENTER - | | | | | | LABORATORY | | + + + + + + | CO2 | 18 (L) | 24 - 31 mmol/L | [facility] | | | | | | [facility] | | | | | | MEDICAL | | | | | | CENTER - | | | | | | LABORATORY | | + + + + + + | Anion Gap | 5 | 3 - 16 mmol/L | [facility] | | | | | | [facility] | | | | | | MEDICAL | | | | | | CENTER - | | | | | | LABORATORY | | + + + + + + | Glucose | 137 (H) | 70 - 109 mg/dL | [facility] | | | | | | [facility] | | | | | | MEDICAL | | | | | | CENTER - | | | | | | LABORATORY | | + + + + + + | BUN | 5 (L) | 7 - 18 mg/dL | [facility] | | | | | | [facility] | | | | | | MEDICAL | | | | | | CENTER - | | | | | | LABORATORY | | + + + + + + | Creatinine | 0.51 (L) | 0.60 - 1.30 | [facility] | | | | | mg/dL | [facility] | | | | | | MEDICAL | | | | | | CENTER - | | | | | | LABORATORY | | + + + + + + | eGFR, | >60Comment: GLOMERULAR | >=60 | [facility] | | | non- | FILTRATION | mL/min/1.73m2 | [facility] | | | [place] | RATE,ESTIMATED | | MEDICAL | | | | mL/min/[id number] than | | CENTER - | | | | 60 Chronic kidney | | LABORATORY | | | | disease,if found over a | | | | | | 3-month period.Less than | | | | | | 15 Kidney failureFor | | | | | | | | | | | | Americans,multiply the | | | | | | calculated GFR by 1.21. | | | | | | | | | | + + + + + + | Calcium | 7.4 (L) | 8.3 - 10.5 | [facility] | | | | | mg/dL | [facility] | | | | | | MEDICAL | | | | | | CENTER - | | | | | | LABORATORY | | + + + + + + | Albumin | 1.7 (L) | 3.2 - 5.0 g/dL | [facility] | | | | | | [facility] | | | | | | MEDICAL | | | | | | CENTER - | | | | | | LABORATORY | | + + + + + + | Bilirubin | 0.9 | 0.1 - 1.5 mg/dL | [facility] | | | Total | | | [facility] | | | | | | MEDICAL | | | | | | CENTER - | | | | | | LABORATORY | | + + + + + + | Total | 5.7 (L) | 6.0 - 7.8 g/dL | [facility] | | | Protein | | | [facility] | | | | | | MEDICAL | | | | | | CENTER - | | | | | | LABORATORY | | + + + + + + | AST | 56 (H) | 10 - 42 U/L | [facility] | | | | | | [facility] | | | | | | MEDICAL | | | | | | CENTER - | | | | | | LABORATORY | | + + + + + + | ALT | 20 | 6 - 45 U/L | [facility] | | | | | | [facility] | | | | | | MEDICAL | | | | | | CENTER - | | | | | | LABORATORY | | + + + + + + | Alkaline | 146 (H) | 40 - 110 U/L | [facility] | | | Phosphatase | | | [facility] | | | | | | MEDICAL | | | | | | CENTER - | | | | | | LABORATORY | | + + + + + + | Globulin | 4.0 (H) | 2.1 - 3.8 g/dL | [facility] | | | | | | [facility] | | | | | | MEDICAL | | | | | | CENTER - | | | | | | LABORATORY | | + + + + + + | Albumin/Joana | 0.4 (L) | 0.8 - 2.0 | [facility] | | | bulin Ratio | | | [facility] | | | | | | MEDICAL | | | | | | CENTER - | | | | | | LABORATORY | | + + + + + + | BUN/Creatin | 9.8 | | [facility] | | | ine Ratio | | | [facility] | | | | | | MEDICAL | | | | | | CENTER - | | | | | | LABORATORY | | + + + + + + + + | Specimen | + + | Blood | + + + + + + + | Performing | Address | City/State/Zipcode | Phone Number | | Organization | | | | + + + + + | [facility] | [address] | [place] | [phone] | | [facility] | | [address] | | | - LABORATORY | | | | + + + + + Urinalysis with Microscopic with Culture if Indicated (01/02/2017 10:12 AM PDT) + + + + + + | Component | Value | Ref Range | Performed | Pathologist | | | | | At | Signature | + + + + + + | Color, | Coleen (A) | Light Yellow, | [facility] | | | Urine | | Yellow, Straw | [facility] | | | | | | MEDICAL | | | | | | CENTER - | | | | | | LABORATORY | | + + + + + + | Clarity, | Hazy (A) | Clear | [facility] | | | Urine | | | [facility] | | | | | | MEDICAL | | | | | | CENTER - | | | | | | LABORATORY | | + + + + + + | pH, Urine | 6.0 | 5.0 - 8.0 | [facility] | | | | | | [facility] | | | | | | MEDICAL | | | | | | CENTER - | | | | | | LABORATORY | | + + + + + + | Specific | 1.023 | 1.001 - 1.030 | [facility] | | | [place], | | | [facility] | | | Urine | | | MEDICAL | | | | | | CENTER - | | | | | | LABORATORY | | + + + + + + | Protein, | >=500 mg/dL (A) | Negative | [facility] | | | Urine | | | [facility] | | | | | | MEDICAL | | | | | | CENTER - | | | | | | LABORATORY | | + + + + + + | Blood, | Large (A) | Negative | [facility] | | | Urine | | | [facility] | | | | | | MEDICAL | | | | | | CENTER - | | | | | | LABORATORY | | + + + + + + | Glucose, | Negative | Negative | [facility] | | | Urine | | | [facility] | | | | | | MEDICAL | | | | | | CENTER - | | | | | | LABORATORY | | + + + + + + | Ketones, | Negative | Negative | [facility] | | | Urine | | | [facility] | | | | | | MEDICAL | | | | | | CENTER - | | | | | | LABORATORY | | + + + + + + | Bilirubin, | Negative | Negative | [facility] | | | Urine | | | [facility] | | | | | | MEDICAL | | | | | | CENTER - | | | | | | LABORATORY | | + + + + + + | Nitrite, | Negative | Negative | [facility] | | | Urine | | | [facility] | | | | | | MEDICAL | | | | | | CENTER - | | | | | | LABORATORY | | + + + + + + | Leukocyte | Trace (A) | Negative | [facility] | | | Esterase, | | | [facility] | | | Urine | | | MEDICAL | | | | | | CENTER - | | | | | | LABORATORY | | + + + + + + | Urobilinoge | 4.0 mg/dL (A) | 0.2 mg/dL, 1.0 | [facility] | | | n, Urine | | mg/dL, Negative | [facility] | | | | | | MEDICAL | | | | | | CENTER - | | | | | | LABORATORY | | + + + + + + | White Blood | 5-10 (A) | 0 - 2 /HPF | [facility] | | | Cells, | | | [facility] | | | Urine | | | MEDICAL | | | | | | CENTER - | | | | | | LABORATORY | | + + + + + + | Red Blood | 25-50 (A) | 0 - 2 /HPF | [facility] | | | Cells, | | | [facility] | | | Urine | | | MEDICAL | | | | | | CENTER - | | | | | | LABORATORY | | + + + + + + | Squamous | 0-2 | 0 - 2 /LPF | [facility] | | | Epithelial | | | [facility] | | | Cells, | | | MEDICAL | | | Urine | | | CENTER - | | | | | | LABORATORY | | + + + + + + | Bacteria, | 1+ (A) | Negative /HPF | [facility] | | | Urine | | | [facility] | | | | | | MEDICAL | | | | | | CENTER - | | | | | | LABORATORY | | + + + + + + | Mucus, | Present (A) | Negative /LPF | [facility] | | | Urine | | | [facility] | | | | | | MEDICAL | | | | | | CENTER - | | | | | | LABORATORY | | + + + + + + | Hyaline | 0-2 | 0 - 2 /LPF | [facility] | | | Casts, | | | [facility] | | | Urine | | | MEDICAL | | | | | | CENTER - | | | | | | LABORATORY | | + + + + + + | Urine | Urine Culture Not | | [facility] | | | Comment | Indicated | | [facility] | | | | | | MEDICAL | | | | | | CENTER - | | | | | | LABORATORY | | + + + + + + + + | Specimen | + + | Urine - Urine | | specimen obtained by | | single | | catheterization of | | bladder (specimen) | + + + + + + + | Performing | Address | City/State/Zipcode | Phone Number | | Organization | | | | + + + + + | [facility] | [address] | [place] | [phone] | | [facility] | | [address] | | | - LABORATORY | | | | + + + + + Extra Lavender Top Tube (01/02/2017 3:54 AM PDT) + +-------+ + + + | Component | Value | Ref Range | Performed | Pathologist | | | | | At | Signature | + +-------+ + + + | Extra | Done | | [facility] | | | Lavender | | | [facility] | | | Top Tube | | | MEDICAL | | | | | | CENTER - | | | | | | LABORATORY | | + +-------+ + + + + + | Specimen | + + | Blood | + + + + + + + | Performing | Address | City/State/Zipcode | Phone Number | | Organization | | | | + + + + + | [facility] | [address] | [place] | [phone] | | [facility] | | [address] | | | - LABORATORY | | | | + + + + + Creatinine (01/02/2017 3:54 AM PDT) + + + + + + | Component | Value | Ref Range | Performed | Pathologist | | | | | At | Signature | + + + + + + | Creatinine | 0.48 (L) | 0.60 - 1.30 | [facility] | | | | | mg/dL | [facility] | | | | | | MEDICAL | | | | | | CENTER - | | | | | | LABORATORY | | + + + + + + | eGFR, | >60Comment: GLOMERULAR | >=60 | [facility] | | | non- | FILTRATION | mL/min/1.73m2 | [facility] | | | [place] | RATE,ESTIMATED | | MEDICAL | | | | mL/min/[id number] than | | CENTER - | | | | 60 Chronic kidney | | LABORATORY | | | | disease,if found over a | | | | | | 3-month period.Less than | | | | | | 15 Kidney failureFor | | | | | | | | | | | | Americans,multiply the | | | | | | calculated GFR by 1.21. | | | | | | | | | | + + + + + + + + | Specimen | + + | Blood | + + + + + + + | Performing | Address | City/State/Zipcode | Phone Number | | Organization | | | | + + + + + | [facility] | [address] | [place], [place] | [phone] | | [facility] | | [address] | | | - LABORATORY | | | | + + + + + CT Chest wo Contrast (01/01/2017 4:37 PM PDT) + + | Specimen | + + | | + + + + + | Narrative | Performed At | + + + | CT CHEST WO CONTRAST 01/01/2017 4:27 PM HISTORY: suspect PNA. | [facility] | | COMPARISON: Multiple prior x-rays PROTOCOL: Axial images of the | | | chest were obtained. Coronal and sagittal reformations were acquired. | | | FINDINGS: LUNGS: The bilateral lungs are generally clear. No | | | radiographic evidence of pneumonia. Tiny subpleural nodules versus | | | tiny areas of atelectasis are seen along bilateral dependent lower | | | lung zones. There is no evidence for pleural effusion or | | | pneumothorax. HEART: The heart is mildly enlarged. There is a small | | | pericardial effusion. VASCULATURE: Aorta and pulmonary arteries are | | | normal in size and without acute abnormality on non-contrast CT. | | | LYMPH NODES: No evidence of axillary, mediastinal, or hilar | | | lymphadenopathy. MEDIASTINUM: Trachea and esophagus are normal. | | | Neck base is normal. ABDOMEN: Cirrhotic configuration of the liver. | | | Small amount of ascites is present. Confines gallstones are seen | | | layering along the dependent gallbladder lumen. There is a left-sided | | | splenorenal shunt and large perisplenic varices along the inferior | | | aspect. Calcified nodule/mass is seen adjacent to the right diaphragm | | | extending from the right hepatic dome (series 2, image 80), similar | | | since prior examination. Previously described right-sided liver mass | | | is poorly visualized on this noncontrast CT SOFT TISSUES: Chest wall | | | structures are normal. BONES: There are no acute osseous | | | abnormalities. IMPRESSION - No radiographic evidence of | | | pneumonia. Cirrhosis with sequelae of portal hypertension | | | including ascites and paraesophageal, perigastric, and perisplenic | | | portosystemic collaterals as well as a left-sided splenorenal shunt. | | | Cardiomegaly. Dictated and Signed by: Bryan Freedman MD | | | Electronically signed: 01/01/2017 7:18 PM | | + + + + + | Procedure Note | + + | Jerm[facility], Rad Results In - 01/01/2017 7:[address] CHEST WO CONTRAST 01/01/2017 4:27 PM | | | | HISTORY: suspect PNA. | | | | COMPARISON: Multiple prior x-rays | | | | PROTOCOL: Axial images of the chest were obtained. Coronal and sagittal | | reformations were acquired. | | | | FINDINGS: | | | | LUNGS: The bilateral lungs are generally clear. No radiographic evidence of | | pneumonia. Tiny subpleural nodules versus tiny areas of atelectasis are seen | | along bilateral dependent lower lung zones. There is no evidence for pleural | | effusion or pneumothorax. | | HEART: The heart is mildly enlarged. There is a small pericardial effusion. | | VASCULATURE: Aorta and pulmonary arteries are normal in size and without acute | | abnormality on non-contrast CT. | | LYMPH NODES: No evidence of axillary, mediastinal, or hilar lymphadenopathy. | | MEDIASTINUM: Trachea and esophagus are normal. Neck base is normal. | | ABDOMEN: Cirrhotic configuration of the liver. Small amount of ascites is | | present. Confines gallstones are seen layering along the dependent gallbladder | | lumen. There is a left-sided splenorenal shunt and large perisplenic varices | | along the inferior aspect. Calcified nodule/mass is seen adjacent to the right | | diaphragm extending from the right hepatic dome (series 2, image 80), similar | | since prior examination. Previously described right-sided liver mass is poorly | | visualized on this noncontrast CT | | SOFT TISSUES: Chest wall structures are normal. | | BONES: There are no acute osseous abnormalities. | | | | IMPRESSION - | | No radiographic evidence of pneumonia. | | | | Cirrhosis with sequelae of portal hypertension including ascites and | | paraesophageal, perigastric, and perisplenic portosystemic collaterals as well | | as a left-sided splenorenal shunt. | | | | Cardiomegaly. | | | | Dictated and Signed by: Bryan Freedman MD | | Electronically signed: 01/01/2017 7:18 PM | + + + +---------+ + + | Performing | Address | City/State/Zipcode | Phone Number | | Organization | | | | + +---------+ + + | [facility] | | | | + +---------+ + + US Guided Paracentesis (01/01/2017 12:02 PM PDT) + + | Specimen | + + | | + + + + + | Narrative | Performed At | + + + | US GUIDED PARACENTESIS 01/01/2017 11:00 AM HISTORY: Fever. | [facility] | | COMPARISON: None. PROTOCOL: After explaining the risks and | | | benefits of the procedure, informed consent was obtained from the | | | patient. Risks discussed included bleeding, infection, and bowel | | | injury. Under ultrasound guidance, the largest pocket of fluid was | | | localized in the right lower abdomen. This region was cleansed and | | | draped in the usual sterile fashion. Lidocaine was used for local | | | anesthesia. A small skin sam was made. Using a 1.5 cm 20-gauge | | | needle, the peritoneal space was accessed. There was return of | | | yellowish fluid. Subsequently, 57 mL of the fluid was aspirated. The | | | patient tolerated the procedure well. IMPRESSION - Successful | | | ultrasound-guided paracentesis. Dictated and Signed by: Austin Gonzalez | | MD Royce Electronically signed: 01/01/2017 1:05 PM | | + + + + + | Procedure Note | + + | Jermaine, Rad Results In - 01/01/2017 1:08 PM PDT US GUIDED PARACENTESIS 01/01/2017 11:00 | | AMHISTORY: Fever.COMPARISON: None.PROTOCOL:After explaining the risks and benefits of | | the procedure, informed consent wasobtained from the patient. Risks discussed included | | bleeding, infection, andbowel injury. Under ultrasound guidance, the largest pocket of | | fluid waslocalized in the right lower abdomen. This region was cleansed and draped in | | theusual sterile fashion. Lidocaine was used for local anesthesia. A small skinnick was | | made. Using a 1.5 cm 20-gauge needle, the peritoneal space wasaccessed. There was return | | of yellowish fluid. Subsequently, 57 mL of the fluidwas aspirated. The patient | | tolerated the procedure well.IMPRESSION -Successful ultrasound-guided | | paracentesis.Dictated and Signed by: Austin Crane MD Electronically signed: 01/01/2017 | | 1:05 PM | |usual sterile fashion. Lidocaine was used for local anesthesia. A small skin | |sam was made. Using a 1.5 cm 20-gauge needle, the peritoneal space was | |accessed. There was return of yellowish fluid. Subsequently, 57 mL of the fluid | |was aspirated. The patient tolerated the procedure well. | | | |IMPRESSION - | |Successful ultrasound-guided paracentesis. | | | |Dictated and Signed by: Austin Crane MD | | Electronically signed: 01/01/2017 1:05 PM | + + + +---------+ + + | Performing | Address | City/State/Zipcode | Phone Number | | Organization | | | | + +---------+ + + | [facility] | | | | + +---------+ + + Albumin, Body Fluid (01/01/2017 11:52 AM PDT) + +-------+ + + + | Component | Value | Ref Range | Performed | Pathologist | | | | | At | Signature | + +-------+ + + + | Albumin, | <1.0 | g/dL | [facility] | | | Body Fluid | | | [facility] | | | | | | [facility] | | | | | | [facility] - | | | | | | LABORATORY | | + +-------+ + + + | Source | Other | | [facility] | | | | | | [facility] | | | | | | [facility] | | | | | | [facility] - | | | | | | LABORATORY | | + +-------+ + + + + + | Specimen | + + | Body Fluid - Entire | | abdomen (body | | structure) | + + + + + | Narrative | Performed At | + + + | Abdominal fluid | [facility] | | | [facility] | | | - LABORATORY | + + + + + + + + | Performing | Address | City/State/Zipcode | Phone Number | | Organization | | | | + + + + + | [facility] | [address] | [place] | [phone] | | [facility] | | [address] | | | - LABORATORY | | | | + + + + + Cell Count with Differential, Body Fluid (01/01/2017 11:52 AM PDT) + + + + + + | Component | Value | Ref Range | Performed | Pathologist | | | | | At | Signature | + + + + + + | Specimen | Abdomen | | [facility] | | | Source | | | [facility] | | | | | | [facility] | | | | | | CENTER - | | | | | | LABORATORY | | + + + + + + | Volume, | 50 | mL | [facility] | | | Body Fluid | | | [facility] | | | | | | MEDICAL | | | | | | CENTER - | | | | | | LABORATORY | | + + + + + + | Color, Body | Light Yellow | | [facility] | | | Fluid | | | [facility] | | | | | | MEDICAL | | | | | | CENTER - | | | | | | LABORATORY | | + + + + + + | Appearance, | Clear | Clear | [facility] | | | Body Fluid | | | [facility] | | | | | | MEDICAL | | | | | | CENTER - | | | | | | LABORATORY | | + + + + + + | Nucleated | 800 (H) | 0 - 150 | [facility] | | | Cells, Body | | cells/uL | [facility] | | | Fluid | | | MEDICAL | | | | | | CENTER - | | | | | | LABORATORY | | + + + + + + | Red Blood | 1,383 | cells/uL | [facility] | | | Cells, Body | | | [facility] | | | Fluid | | | MEDICAL | | | | | | CENTER - | | | | | | LABORATORY | | + + + + + + | % | 2Comment: This is an | % | [facility] | | | Neutrophils | appended report. These | | [facility] | | | , Body | results have been | | MEDICAL | | | Fluid | appended to a previously | | CENTER - | | | | preliminary verified | | LABORATORY | | | | report. | | | | + + + + + + | % | 44Comment: This is an | % | [facility] | | | Lymphocytes | appended report. These | | [facility] | | | , Body | results have been | | MEDICAL | | | Fluid | appended to a previously | | CENTER - | | | | preliminary verified | | LABORATORY | | | | report. | | | | + + + + + + | % | 44Comment: This is an | % | [facility] | | | Macrophages | appended report. These | | [facility] | | | /Monocytes, | results have been | | MEDICAL | | | Body Fluid | appended to a previously | | CENTER - | | | | preliminary verified | | LABORATORY | | | | report. | | | | + + + + + + | % | 9Comment: This is an | % | [facility] | | | Eosinophils | appended report. These | | [facility] | | | , Body | results have been | | MEDICAL | | | Fluid | appended to a previously | | CENTER - | | | | preliminary verified | | LABORATORY | | | | report. | | | | + + + + + + | Total Cells | 97Comment: This is an | | [facility] | | | Counted, | appended report. These | | [facility] | | | Body Fluid | results have been | | MEDICAL | | | | appended to a previously | | CENTER - | | | | preliminary verified | | LABORATORY | | | | report. | | | | + + + + + + + + | Specimen | + + | Body Fluid - Entire | | abdomen (body | | structure) | + + + + + + + | Performing | Address | City/State/Zipcode | Phone Number | | Organization | | | | + + + + + | [facility] | [address] | [place] | [phone] | | [facility] | | [address] | | | - LABORATORY | | | | + + + + + Culture, Body Fluid, Anaerobe (01/01/2017 11:51 AM PDT) + + + + + + | Component | Value | Ref Range | Performed | Pathologist | | | | | At | Signature | + + + + + + | Culture | No anaerobes isolated. | | [facility] | | | | | | [facility] | | | | | | [facility] | | | | | | CENTER - | | | | | | LABORATORY | | + + + + + + + + | Specimen | + + | Body Fluid - Ascitic | | fluid sample | | (specimen) | + + + + + + + | Performing | Address | City/State/Zipcode | Phone Number | | Organization | | | | + + + + + | [facility] | [address] | [place] | [phone] | | [facility] | | [address] | | | - LABORATORY | | | | + + + + + Culture, Body Fluid, Aerobe (01/01/2017 11:51 AM PDT) + + + + + + | Component | Value | Ref Range | Performed | Pathologist | | | | | At | Signature | + + + + + + | Culture | No Growth | | [facility] | | | | | | [facility] | | | | | | MEDICAL | | | | | | CENTER - | | | | | | LABORATORY | | + + + + + + | Gram Stain | 1+ White Blood Cells | | [facility] | | | Result | | | [facility] | | | | | | MEDICAL | | | | | | CENTER - | | | | | | LABORATORY | | + + + + + + | Gram Stain | No organisms seen | | [facility] | | | Result | | | [facility] | | | | | | MEDICAL | | | | | | CENTER - | | | | | | LABORATORY | | + + + + + + + + | Specimen | + + | Body Fluid - Ascitic | | fluid sample | | (specimen) | + + + + + + + | Performing | Address | City/State/Zipcode | Phone Number | | Organization | | | | + + + + + | [facility] | [address] | [place] | [phone] | | [facility] | | [address] | | | - LABORATORY | | | | + + + + + Culture, MRSA (01/01/2017 9:25 AM PDT) + + + + + + | Component | Value | Ref Range | Performed | Pathologist | | | | | At | Signature | + + + + + + | Culture | Negative for MRSA by | | [facility] | | | | chromogenic agar method | | [facility] | | | | | | [facility] | | | | | | CENTER - | | | | | | LABORATORY | | + + + + + + + + | Specimen | + + | Respiratory - Both | | anterior nares (body | | structure) | + + + + + + + | Performing | Address | City/State/Zipcode | Phone Number | | Organization | | | | + + + + + | [facility] | [address] | [place] | [phone] | | [facility] | | [address] | | | - LABORATORY | | | | + + + + + Protime INR (01/01/2017 4:22 AM PDT) + + + + + + | Component | Value | Ref Range | Performed | Pathologist | | | | | At | Signature | + + + + + + | Prothrombin | 16.7 (H) | 11.3 - 13.9 | [facility] | | | Time | | seconds | [facility] | | | | | | MEDICAL | | | | | | CENTER - | | | | | | LABORATORY | | + + + + + + | INR | 1.35 (H)Comment: Usual | 0.90 - 1.10 | [facility] | | | | Oral Anticoagulation | | [facility] | | | | Range: 2.0 - | | MEDICAL | | | | 3.0High Level Oral | | CENTER - | | | | Anticoagulation Range: | | LABORATORY | | | | 2.5 - 3.5 | | | | + + + + + + + + | Specimen | + + | Blood | + + + + + + + | Performing | Address | City/State/Zipcode | Phone Number | | Organization | | | | + + + + + | [facility] | [address] | [place] | [phone] | | [facility] | | [address] | | | - LABORATORY | | | | + + + + + Magnesium (01/01/2017 4:22 AM PDT) + +---------+ + + + | Component | Value | Ref Range | Performed | Pathologist | | | | | At | Signature | + +---------+ + + + | Magnesium | 1.5 (L) | 1.8 - 2.5 mg/dL | [facility] | | [facility] | | | | | [facility] | | | | | | CENTER - | | | | | | LABORATORY | | + +---------+ + + + + + | Specimen | + + | Blood | + + + + + + + | Performing | Address | City/State/Zipcode | Phone Number | | Organization | | | | + + + + + | [facility] | [address] | [place] | [phone] | | [facility] | | [address] | | | - LABORATORY | | | | + + + + + Comprehensive Metabolic Panel (01/01/2017 4:22 AM PDT) + + + + + + | Component | Value | Ref Range | Performed | Pathologist | | | | | At | Signature | + + + + + + | Na | 131 (L) | 136 - 149 | [facility] | | | | | mmol/L | [facility] | | | | | | MEDICAL | | | | | | CENTER - | | | | | | LABORATORY | | + + + + + + | K | 3.0 (L) | 3.5 - 5.1 | [facility] | | | | | mmol/L | [facility] | | | | | | MEDICAL | | | | | | CENTER - | | | | | | LABORATORY | | + + + + + + | Cl | 103 | 98 - 109 mmol/L | [facility] | | | | | | [facility] | | | | | | MEDICAL | | | | | | CENTER - | | | | | | LABORATORY | | + + + + + + | CO2 | 23 (L) | 24 - 31 mmol/L | [facility] | | | | | | [facility] | | | | | | [facility] | | | | | | CENTER - | | | | | | LABORATORY | | + + + + + + | Anion Gap | 5 | 3 - 16 mmol/L | [facility] | | | | | | [facility] | | | | | | MEDICAL | | | | | | CENTER - | | | | | | LABORATORY | | + + + + + + | Glucose | 91 | 70 - 109 mg/dL | [facility] | | | | | | [facility] | | | | | | MEDICAL | | | | | | CENTER - | | | | | | LABORATORY | | + + + + + + | BUN | 5 (L) | 7 - 18 mg/dL | [facility] | | | | | | [facility] | | | | | | MEDICAL | | | | | | CENTER - | | | | | | LABORATORY | | + + + + + + | Creatinine | 0.51 (L) | 0.60 - 1.30 | [facility] | | | | | mg/dL | [facility] | | | | | | MEDICAL | | | | | | CENTER - | | | | | | LABORATORY | | + + + + + + | eGFR, | >60Comment: GLOMERULAR | >=60 | [facility] | | | non- | FILTRATION | mL/min/1.73m2 | [facility] | | | [place] | RATE,ESTIMATED | | MEDICAL | | | | mL/min/1.44c3Axgt than | | CENTER - | | | | 60 Chronic kidney | | LABORATORY | | | | disease,if found over a | | | | | | 3-month period.Less than | | | | | | 15 Kidney failureFor | | | | | | | | | | | | Americans,multiply the | | | | | | calculated GFR by 1.21. | | | | | | | | | | + + + + + + | Calcium | 7.1 (L) | 8.3 - 10.5 | [facility] | | | | | mg/dL | [facility] | | | | | | MEDICAL | | | | | | CENTER - | | | | | | LABORATORY | | + + + + + + | Albumin | 1.8 (L) | 3.2 - 5.0 g/dL | [facility] | | | | | | [facility] | | | | | | MEDICAL | | | | | | CENTER - | | | | | | LABORATORY | | + + + + + + | Bilirubin | 1.2 | 0.1 - 1.5 mg/dL | [facility] | | | Total | | | [facility] | | | | | | MEDICAL | | | | | | CENTER - | | | | | | LABORATORY | | + + + + + + | Total | 5.7 (L) | 6.0 - 7.8 g/dL | [facility] | | | Protein | | | [facility] | | | | | | MEDICAL | | | | | | CENTER - | | | | | | LABORATORY | | + + + + + + | AST | 66 (H) | 10 - 42 U/L | [facility] | | | | | | [facility] | | | | | | MEDICAL | | | | | | CENTER - | | | | | | LABORATORY | | + + + + + + | ALT | 17 | 6 - 45 U/L | [facility] | | | | | | [facility] | | | | | | MEDICAL | | | | | | CENTER - | | | | | | LABORATORY | | + + + + + + | Alkaline | 130 (H) | 40 - 110 U/L | [facility] | | | Phosphatase | | | [facility] | | | | | | MEDICAL | | | | | | CENTER - | | | | | | LABORATORY | | + + + + + + | Globulin | 3.9 (H) | 2.1 - 3.8 g/dL | [facility] | | | | | | [facility] | | | | | | MEDICAL | | | | | | CENTER - | | | | | | LABORATORY | | + + + + + + | Albumin/Joana | 0.5 (L) | 0.8 - 2.0 | [facility] | | | bulin Ratio | | | [facility] | | | | | | MEDICAL | | | | | | CENTER - | | | | | | LABORATORY | | + + + + + + | BUN/Creatin | 9.8 | | [facility] | | | ine Ratio | | | [facility] | | | | | | MEDICAL | | | | | | CENTER - | | | | | | LABORATORY | | + + + + + + + + | Specimen | + + | Blood | + + + + + + + | Performing | Address | City/State/Zipcode | Phone Number | | Organization | | | | + + + + + | [facility] | [address] | [place] | [phone] | | [facility] | | [address] | | | - LABORATORY | | | | + + + + + CBC with Differential (01/01/2017 4:22 AM PDT) + + + + + + | Component | Value | Ref Range | Performed | Pathologist | | | | | At | Signature | + + + + + + | White Blood | 6.1 | 4.0 - 11.0 K/uL | [facility] | | | Cells | | | [facility] | | | | | | MEDICAL | | | | | | CENTER - | | | | | | LABORATORY | | + + + + + + | Red Blood | 2.98 (L) | 3.70 - 5.20 | [facility] | | | Cells | | M/uL | [facility] | | | | | | MEDICAL | | | | | | CENTER - | | | | | | LABORATORY | | + + + + + + | Hemoglobin | 9.5 (L) | 11.5 - 16.0 | [facility] | | | | | g/dL | [facility] | | | | | | MEDICAL | | | | | | CENTER - | | | | | | LABORATORY | | + + + + + + | Hematocrit | 28.1 (L) | 34.0 - 47.0 % | [facility] | | | | | | [facility] | | | | | | MEDICAL | | | | | | CENTER - | | | | | | LABORATORY | | + + + + + + | MCV | 94.5 | 83.0 - 101.0 fL | [facility] | | | | | | [facility] | | | | | | MEDICAL | | | | | | CENTER - | | | | | | LABORATORY | | + + + + + + | MCH | 31.9 | 28.0 - 35.0 pg | [facility] | | | | | | [facility] | | | | | | MEDICAL | | | | | | CENTER - | | | | | | LABORATORY | | + + + + + + | MCHC | 33.8 | 32.0 - 36.0 | [facility] | | | | | g/dL | [facility] | | | | | | MEDICAL | | | | | | CENTER - | | | | | | LABORATORY | | + + + + + + | RDW-CV | 15.8 (H) | <15.0 % | [facility] | | | | | | [facility] | | | | | | MEDICAL | | | | | | CENTER - | | | | | | LABORATORY | | + + + + + + | Platelet | 89 (L) | 140 - 440 K/uL | [facility] | | | Count | | | [facility] | | | | | | MEDICAL | | | | | | CENTER - | | | | | | LABORATORY | | + + + + + + | MPV | 8.0 | fL | [facility] | | | | | | [facility] | | | | | | MEDICAL | | | | | | CENTER - | | | | | | LABORATORY | | + + + + + + | % | 71.9 | 45.0 - 82.0 % | [facility] | | | Neutrophils | | | [facility] | | | | | | MEDICAL | | | | | | CENTER - | | | | | | LABORATORY | | + + + + + + | % | 8.9 (L) | 20.0 - 45.0 % | [facility] | | | Lymphocytes | | | [facility] | | | | | | MEDICAL | | | | | | CENTER - | | | | | | LABORATORY | | + + + + + + | % Monocytes | 17.6 (H) | 4.0 - 12.0 % | [facility] | | | | | | [facility] | | | | | | MEDICAL | | | | | | CENTER - | | | | | | LABORATORY | | + + + + + + | % | 0.5 | 0.0 - 5.0 % | [facility] | | | Eosinophils | | | [facility] | | | | | | MEDICAL | | | | | | CENTER - | | | | | | LABORATORY | | + + + + + + | % Basophils | 1.1 (H) | 0.0 - 1.0 % | [facility] | | | | | | [facility] | | | | | | MEDICAL | | | | | | CENTER - | | | | | | LABORATORY | | + + + + + + | Absolute | 4.40 | 1.80 - 8.50 | [facility] | | | Neutrophils | | K/uL | [facility] | | | | | | MEDICAL | | | | | | CENTER - | | | | | | LABORATORY | | + + + + + + | Absolute | 0.50 (L) | 0.60 - 3.20 | [facility] | | | Lymphocytes | | K/uL | [facility] | | | | | | MEDICAL | | | | | | CENTER - | | | | | | LABORATORY | | + + + + + + | Absolute | 1.10 (H) | 0.00 - 1.00 | [facility] | | | Monocytes | | K/uL | [facility] | | | | | | MEDICAL | | | | | | CENTER - | | | | | | LABORATORY | | + + + + + + | Absolute | 0.00 | 0.00 - 0.40 | [facility] | | | Eosinophils | | K/uL | [facility] | | | | | | MEDICAL | | | | | | CENTER - | | | | | | LABORATORY | | + + + + + + | Absolute | 0.10 | 0.00 - 0.10 | [facility] | | | Basophils | | K/uL | [facility] | | | | | | MEDICAL | | | | | | CENTER - | | | | | | LABORATORY | | + + + + + + + + | Specimen | + + | Blood | + + + + + + + | Performing | Address | City/State/Zipcode | Phone Number | | Organization | | | | + + + + + | [facility] | [address] | [place] | [phone] | | [facility] | | [address] | | | - LABORATORY | | | | + + + + + Ammonia (12/31/2016 8:55 PM PDT) + +--------+ + + + | Component | Value | Ref Range | Performed | Pathologist | | | | | At | Signature | + +--------+ + + + | Ammonia | 77 (H) | 11 - 35 umol/L | [facility] | | | | | | [facility] | | | | | | [facility] | | | | | | CENTER - | | | | | | LABORATORY | | + +--------+ + + + + + | Specimen | + + | Blood | + + + + + + + | Performing | Address | City/State/Zipcode | Phone Number | | Organization | | | | + + + + + | [facility] | [address] | [place] | [phone] | | [facility] | | [address] | | | - LABORATORY | | | | + + + + + Culture, Urine (12/31/2016 5:22 PM PDT) + + + + + + | Component | Value | Ref Range | Performed | Pathologist | | | | | At | Signature | + + + + + + | Culture | 10,000 CFU/ml | | [facility] | | | | Staphylococcus | | [facility] | | | | epidermidis | | MEDICAL | | | | | | CENTER - | | | | | | LABORATORY | | + + + + + + + + | Specimen | + + | Urine - Urine | | specimen obtained by | | clean catch | | procedure (specimen) | + + + + +--------+ + | Organism | Antibiotic | Method | Susceptibility | + + +--------+ + | Staphylococcus | Nitrofurantoin | | <=16 ug/mL: | | epidermidis | | | Sensitive | + + +--------+ + | Staphylococcus | Oxacillin | | <=0.25 ug/mL: | | epidermidis | | | Sensitive | + + +--------+ + | Staphylococcus | Penicillin G | | >=0.5 ug/mL: | | epidermidis | | | Resistant | + + +--------+ + | Staphylococcus | Rifampin | | <=0.5 ug/mL: | | epidermidis | | | Sensitive | + + +--------+ + | Staphylococcus | Tetracycline | | 2 ug/mL: Sensitive | | epidermidis | | | | + + +--------+ + | Staphylococcus | Trimethoprim + | | >=320 ug/mL: | | epidermidis | Sulfamethoxazole | | Resistant | + + +--------+ + + + + + + | Performing | Address | City/State/Zipcode | Phone Number | | Organization | | | | + + + + + | [facility] | [address] | [place] | [phone] | | [facility] | | [address] | | | - LABORATORY | | | | + + + + + Urinalysis with Microscopic with Culture if Indicated (12/31/2016 5:22 PM PDT) + + + + + + | Component | Value | Ref Range | Performed | Pathologist | | | | | At | Signature | + + + + + + | Color, | Yellow | Light Yellow, | [facility] | | | Urine | | Yellow, Straw | [facility] | | | | | | MEDICAL | | | | | | CENTER - | | | | | | LABORATORY | | + + + + + + | Clarity, | Clear | Clear | [facility] | | | Urine | | | [facility] | | | | | | MEDICAL | | | | | | CENTER - | | | | | | LABORATORY | | + + + + + + | pH, Urine | 8.0 | 5.0 - 8.0 | [facility] | | | | | | [facility] | | | | | | MEDICAL | | | | | | CENTER - | | | | | | LABORATORY | | + + + + + + | Specific | 1.009 | 1.001 - 1.030 | [facility] | | | [place], | | | [facility] | | | Urine | | | MEDICAL | | | | | | CENTER - | | | | | | LABORATORY | | + + + + + + | Protein, | 100 mg/dL (A) | Negative | [facility] | | | Urine | | | [facility] | | | | | | MEDICAL | | | | | | CENTER - | | | | | | LABORATORY | | + + + + + + | Blood, | Moderate (A) | Negative | [facility] | | | Urine | | | [facility] | | | | | | MEDICAL | | | | | | CENTER - | | | | | | LABORATORY | | + + + + + + | Glucose, | Negative | Negative | [facility] | | | Urine | | | [facility] | | | | | | MEDICAL | | | | | | CENTER - | | | | | | LABORATORY | | + + + + + + | Ketones, | Negative | Negative | [facility] | | | Urine | | | [facility] | | | | | | [facility] | | | | | | CENTER - | | | | | | LABORATORY | | + + + + + + | Bilirubin, | Negative | Negative | [facility] | | | Urine | | | [facility] | | | | | | MEDICAL | | | | | | CENTER - | | | | | | LABORATORY | | + + + + + + | Nitrite, | Negative | Negative | [facility] | | | Urine | | | [facility] | | | | | | MEDICAL | | | | | | CENTER - | | | | | | LABORATORY | | + + + + + + | Leukocyte | Negative | Negative | [facility] | | | Esterase, | | | [facility] | | | Urine | | | MEDICAL | | | | | | CENTER - | | | | | | LABORATORY | | + + + + + + | Urobilinoge | Negative | 0.2 mg/dL, 1.0 | [facility] | | | n, Urine | | mg/dL, Negative | [facility] | | | | | | MEDICAL | | | | | | CENTER - | | | | | | LABORATORY | | + + + + + + | White Blood | 0-2 | 0 - 2 /HPF | [facility] | | | Cells, | | | [facility] | | | Urine | | | MEDICAL | | | | | | CENTER - | | | | | | LABORATORY | | + + + + + + | Red Blood | 15-25 (A) | 0 - 2 /HPF | [facility] | | | Cells, | | | [facility] | | | Urine | | | MEDICAL | | | | | | CENTER - | | | | | | LABORATORY | | + + + + + + | Squamous | 2-5 (A) | 0 - 2 /LPF | [facility] | | | Epithelial | | | [facility] | | | Cells, | | | MEDICAL | | | Urine | | | CENTER - | | | | | | LABORATORY | | + + + + + + | Bacteria, | 1+ (A) | Negative /HPF | [facility] | | | Urine | | | [facility] | | | | | | MEDICAL | | | | | | CENTER - | | | | | | LABORATORY | | + + + + + + | Mucus, | Present (A) | Negative /LPF | [facility] | | | Urine | | | [facility] | | | | | | MEDICAL | | | | | | CENTER - | | | | | | LABORATORY | | + + + + + + | Uric Acid | Few (A) | None Seen /HPF | [facility] | | | Crystals, | | | [facility] | | | Urine | | | MEDICAL | | | | | | CENTER - | | | | | | LABORATORY | | + + + + + + | Urine | Urine Culture Not | | [facility] | | | Comment | Indicated | | [facility] | | | | | [facility] | | | | | | CENTER - | | | | | | LABORATORY | | + + + + + + + + | Specimen | + + | Urine - Urine | | specimen obtained by | | clean catch | | procedure (specimen) | + + + + + + + | Performing | Address | City/State/Zipcode | Phone Number | | Organization | | | | + + + + + | [facility] | [address] | [place] | [phone] | | [facility] | | [id number] | | | - LABORATORY | | | | + + + + + XR Chest AP Portable (12/31/2016 4:59 PM PDT) + + | Specimen | + + | | + + + + + | Narrative | Performed At | + + + | EXAM: XR CHEST AP PORTABLE dated 12/31/2016 4:54 PM HISTORY: | [facility] | | SEIZURE (ADULT-ALCOHOLIC) Comparison: November 06, 2016 TECHNIQUE: | | | A single portable view of the chest. FINDINGS: Low lung | | | volumes. Motion degradation. Prominent pulmonary vasculature | | | bilaterally. Questionable area of increased density adjacent to the | | | left hilum. This appears somewhat similar to the comparison exam. | | | There is mild cardiomegaly. No pneumothorax. No large pleural | | | effusion. No acute osseous abnormalities. IMPRESSION - Low | | | lung volumes and motion degradation. Findings may represent | | | pulmonary venous congestion. Cannot exclude a developing airspace | | | process in the left midlung. Dictated and Signed by: Hakeem Osullivan | | | MD Dharmesh Electronically signed: 12/31/2016 5:04 PM | | + + + + + | Procedure Note | + + | Jermaine, Rad Results In - 12/31/2016 5:07 PM PDT EXAM: XR CHEST AP PORTABLE dated | | 12/31/2016 4:54 PMHISTORY: SEIZURE (ADULT-ALCOHOLIC)Comparison: November 06, 2016TECHNIQUE: A | | single portable view of the chest.FINDINGS:Low lung volumes. Motion degradation. | | Prominent pulmonary vasculaturebilaterally. Questionable area of increased density | | adjacent to the left hilum. This appears somewhat similar to the comparison exam. There | | is mildcardiomegaly. No pneumothorax. No large pleural effusion. No acute | | osseousabnormalities. IMPRESSION -Low lung volumes and motion degradation.Findings may | | represent pulmonary venous congestion.Cannot exclude a developing airspace process in | | the left midlung.Dictated and Signed by: Hakeem Barroso MD Electronically signed: | | 12/31/2016 5:04 PM | |Low lung volumes. Motion degradation. Prominent pulmonary vasculature | |bilaterally. Questionable area of increased density adjacent to the left hilum. | | This appears somewhat similar to the comparison exam. There is mild | |cardiomegaly. No pneumothorax. No large pleural effusion. No acute osseous | |abnormalities. | | | |IMPRESSION - | | | |Low lung volumes and motion degradation. | | | |Findings may represent pulmonary venous congestion. | | | |Cannot exclude a developing airspace process in the left midlung. | | | |Dictated and Signed by: Hakeem Barroso MD | | Electronically signed: 12/31/2016 5:04 PM | + + + +---------+ + + | Performing | Address | City/State/Zipcode | Phone Number | | Organization | | | | + +---------+ + + | [facility] | | | | + +---------+ + + Urinalysis with Microscopic with Culture if Indicated (12/31/2016 3:57 PM PDT) + + + + + + | Component | Value | Ref Range | Performed | Pathologist | | | | | At | Signature | + + + + + + | Color, | Coleen (A) | Light Yellow, | [facility] | | | Urine | | Yellow, Straw | [facility] | | | | | | [facility] | | | | | | [facility] - | | | | | | LABORATORY | | + + + + + + | Clarity, | Cloudy (A) | Clear | [facility] | | | Urine | | | [facility] | | | | | | [facility] | | | | | | [facility] - | | | | | | LABORATORY | | + + + + + + | pH, Urine | 7.0 | 5.0 - 8.0 | [facility] | | | | | | [facility] | | | | | | [facility] | | | | | | C[facility] - | | | | | | LABORATORY | | + + + + + + | Specific | 1.018 | 1.001 - 1.030 | [facility] | | | [place], | | | [facility] | | | Urine | | | MEDICAL | | | | | | CENTER - | | | | | | LABORATORY | | + + + + + + | Protein, | >=500 mg/dL (A) | Negative | [facility] | | | Urine | | | [facility] | | | | | | [facility] | | | | | | CENTER - | | | | | | LABORATORY | | + + + + + + | Blood, | Moderate (A) | Negative | [facility] | | | Urine | | | [facility] | | | | | | [facility] | | | | | | C[facility] - | | | | | | LABORATORY | | + + + + + + | Glucose, | Negative | Negative | [facility] | | | Urine | | | [facility] | | | | | | [facility] | | | | | | CENTER - | | | | | | LABORATORY | | + + + + + + | Ketones, | Negative | Negative | [facility] | | | Urine | | | [facility] | | | | | | [facility] | | | | | | CENTER - | | | | | | LABORATORY | | + + + + + + | Bilirubin, | Negative | Negative | [facility] | | | Urine | | | [facility] | | | | | | [facility] | | | | | | CENTER - | | | | | | LABORATORY | | + + + + + + | Nitrite, | Negative | Negative | [facility] | | | Urine | | | [facility] | | | | | | [facility] | | | | | | CENTER - | | | | | | LABORATORY | | + + + + + + | Leukocyte | Negative | Negative | [facility] | | | Esterase, | | | [facility] | | | Urine | | | MEDICAL | | | | | | CENTER - | | | | | | LABORATORY | | + + + + + + | Urobilinoge | Negative | 0.2 mg/dL, 1.0 | [facility] | | | n, Urine | | mg/dL, Negative | [facility] | | | | | | MEDICAL | | | | | | CENTER - | | | | | | LABORATORY | | + + + + + + | White Blood | 5-10 (A) | 0 - 2 /HPF | [facility] | | | Cells, | | | [facility] | | | Urine | | | MEDICAL | | | | | | CENTER - | | | | | | LABORATORY | | + + + + + + | Red Blood | 25-50 (A) | 0 - 2 /HPF | [facility] | | | Cells, | | | [facility] | | | Urine | | | MEDICAL | | | | | | CENTER - | | | | | | LABORATORY | | + + + + + + | Squamous | 50-100 (A) | 0 - 2 /LPF | [facility] | | | Epithelial | | | [facility] | | | Cells, | | | MEDICAL | | | Urine | | | CENTER - | | | | | | LABORATORY | | + + + + + + | Bacteria, | 1+ (A) | Negative /HPF | [facility] | | | Urine | | | [facility] | | | | | | MEDICAL | | | | | | CENTER - | | | | | | LABORATORY | | + + + + + + | Mucus, | Present (A) | Negative /LPF | [facility] | | | Urine | | | [facility] | | | | | | MEDICAL | | | | | | CENTER - | | | | | | LABORATORY | | + + + + + + | Hyaline | 2-5 (A) | 0 - 2 /LPF | [facility] | | | [place], | | | [facility] | | | Urine | | | MEDICAL | | | | | | CENTER - | | | | | | LABORATORY | | + + + + + + | Urine | Urine Culture Not | | [facility] | | | Comment | Indicated | | [facility] | | | | | | MEDICAL | | | | | | CENTER - | | | | | | LABORATORY | | + + + + + + + + | Specimen | + + | Urine - Spot urine | | sample (specimen) | + + + + + + + | Performing | Address | City/State/Zipcode | Phone Number | | Organization | | | | + + + + + | [facility] | [address] | [place] | [phone] | | [facility] | | [address] | | | - LABORATORY | | | | + + + + + Culture, Blood (12/31/2016 3:23 PM PDT) + + + + + + | Component | Value | Ref Range | Performed | Pathologist | | | | | At | Signature | + + + + + + | Culture | No growth after 5 days | | [facility] | | | | incubation. | | [facility] | | | | | | MEDICAL | | | | | | CENTER - | | | | | | LABORATORY | | + + + + + + + + | Specimen | + + | Blood - Peripheral | | blood specimen | | (specimen) | + + + + + + + | Performing | Address | City/State/Zipcode | Phone Number | | Organization | | | | + + + + + | [facility] | [address] | [place], [place] | [phone] | | [facility] | | [address] | | | - LABORATORY | | | | + + + + + Lactic Acid (12/31/2016 3:21 PM PDT) + +---------+ + + + | Component | Value | Ref Range | Performed | Pathologist | | | | | At | Signature | + +---------+ + + + | Lactate | 3.5 (H) | 0.5 - 2.2 | [facility] | | | | | mmol/L | [facility] | | | | | | MEDICAL | | | | | | CENTER - | | | | | | LABORATORY | | + +---------+ + + + + + | Specimen | + + | Blood | + + + + + + + | Performing | Address | City/State/Zipcode | Phone Number | | Organization | | | | + + + + + | [facility] | [address] | [place] | [phone] | | [facility] | | [address] | | | - LABORATORY | | | | + + + + + Culture, Blood (12/31/2016 3:21 PM PDT) + + + + + + | Component | Value | Ref Range | Performed | Pathologist | | | | | At | Signature | + + + + + + | Culture | Positive Blood Culture | | [facility] | | | | (AA) | | [facility] | | | | | | MEDICAL | | | | | | CENTER - | | | | | | LABORATORY | | + + + + + + | Culture | Staphylococcus | | [facility] | | | | epidermidisComment: | | [facility] | | | | Probable contaminant | | MEDICAL | | | | | | CENTER - | | | | | | LABORATORY | | + + + + + + | Gram Stain | Gram positive cocci in | | [facility] | | | Result | clustersComment: 1 of 3 | | [facility] | | | | bottles positive | | MEDICAL | | | | | | CENTER - | | | | | | LABORATORY | | + + + + + + + + | Specimen | + + | Blood - Peripheral | | blood specimen | | (specimen) | + + + + + + + | Performing | Address | City/State/Zipcode | Phone Number | | Organization | | | | + + + + + | [facility] | [address] | [place] | [phone] | | [facility] | | [address] | | | - LABORATORY | | | | + + + + + Extra Blue Top Tube (12/31/2016 2:46 PM PDT) + +-------+ + + + | Component | Value | Ref Range | Performed | Pathologist | | | | | At | Signature | + +-------+ + + + | Extra Blue | Done | | [facility] | | | Top Tube | | | [facility] | | | | | | MEDICAL | | | | | | CENTER - | | | | | | LABORATORY | | + +-------+ + + + + + | Specimen | + + | Blood | + + + + + + + | Performing | Address | City/State/Zipcode | Phone Number | | Organization | | | | + + + + + | [facility] | [address] | [place] | [phone] | | [facility] | | [address] | | | - LABORATORY | | | | + + + + + Extra Green Top Tube (12/31/2016 2:46 PM PDT) + +-------+ + + + | Component | Value | Ref Range | Performed | Pathologist | | | | | At | Signature | + +-------+ + + + | Extra Green | Done | | [facility] | | | Top Tube | | | [facility] | | | | | | MEDICAL | | | | | | CENTER - | | | | | | LABORATORY | | + +-------+ + + + + + | Specimen | + + | Blood | + + + + + + + | Performing | Address | City/State/Zipcode | Phone Number | | Organization | | | | + + + + + | [facility] | [address] | [place] | [phone] | | [facility] | | [address] | | | - LABORATORY | | | | + + + + + Lipase (12/31/2016 2:45 PM PDT) + +-------+ + + + | Component | Value | Ref Range | Performed | Pathologist | | | | | At | Signature | + +-------+ + + + | Lipase | 21 | 0 - 60 U/L | [facility] | | | | | | [facility] | | | | | | MEDICAL | | | | | | CENTER - | | | | | | LABORATORY | | + +-------+ + + + + + | Specimen | + + | Blood | + + + + + + + | Performing | Address | City/State/Zipcode | Phone Number | | Organization | | | | + + + + + | [facility] | [address] | [place] | [phone] | | [facility] | | [address] | | | - LABORATORY | | | | + + + + + Comprehensive Metabolic Panel (12/31/2016 2:45 PM PDT) + + + + + + | Component | Value | Ref Range | Performed | Pathologist | | | | | At | Signature | + + + + + + | Na | 135 (L) | 136 - 149 | [facility] | | | | | mmol/L | [facility] | | | | | | MEDICAL | | | | | | CENTER - | | | | | | LABORATORY | | + + + + + + | K | 3.9 | 3.5 - 5.1 | [facility] | | | | | mmol/L | [facility] | | | | | | MEDICAL | | | | | | CENTER - | | | | | | LABORATORY | | + + + + + + | Cl | 104 | 98 - 109 mmol/L | [facility] | | | | | | [facility] | | | | | | MEDICAL | | | | | | CENTER - | | | | | | LABORATORY | | + + + + + + | CO2 | 21 (L) | 24 - 31 mmol/L | [facility] | | | | | | [facility] | | | | | | MEDICAL | | | | | | CENTER - | | | | | | LABORATORY | | + + + + + + | Anion Gap | 10 | 3 - 16 mmol/L | [facility] | | | | | | [facility] | | | | | | MEDICAL | | | | | | CENTER - | | | | | | LABORATORY | | + + + + + + | Glucose | 143 (H) | 70 - 109 mg/dL | [facility] | | | | | | [facility] | | | | | | MEDICAL | | | | | | CENTER - | | | | | | LABORATORY | | + + + + + + | BUN | 9 | 7 - 18 mg/dL | [facility] | | | | | | [facility] | | | | | | MEDICAL | | | | | | CENTER - | | | | | | LABORATORY | | + + + + + + | Creatinine | 0.75 | 0.60 - 1.30 | [facility] | | | | | mg/dL | [facility] | | | | | | MEDICAL | | | | | | CENTER - | | | | | | LABORATORY | | + + + + + + | eGFR, | >60Comment: GLOMERULAR | >=60 | [facility] | | | non- | FILTRATION | mL/min/1.73m2 | [facility] | | | [place] | RATE,ESTIMATED | | MEDICAL | | | | mL/min/1.32t9Kxwz than | | CENTER - | | | | 60 Chronic kidney | | LABORATORY | | | | disease,if found over a | | | | | | 3-month period.Less than | | | | | | 15 Kidney failureFor | | | | | | | | | | | | Americans,multiply the | | | | | | calculated GFR by 1.21. | | | | | | | | | | + + + + + + | Calcium | 8.5 | 8.3 - 10.5 | [facility] | | | | | mg/dL | [facility] | | | | | | MEDICAL | | | | | | CENTER - | | | | | | LABORATORY | | + + + + + + | Albumin | 2.4 (L) | 3.2 - 5.0 g/dL | [facility] | | | | | | [facility] | | | | | | MEDICAL | | | | | | CENTER - | | | | | | LABORATORY | | + + + + + + | Bilirubin | 1.2Comment: This is an | 0.1 - 1.5 mg/dL | [facility] | | | Total | appended report. These | | [facility] | | | | results have been | | MEDICAL | | | | appended to a previously | | CENTER - | | | | preliminary verified | | LABORATORY | | | | report. | | | | + + + + + + | Total | 7.2 | 6.0 - 7.8 g/dL | [facility] | | | Protein | | | [facility] | | | | | | MEDICAL | | | | | | CENTER - | | | | | | LABORATORY | | + + + + + + | AST | 84 (H)Comment: This is | 10 - 42 U/L | [facility] | | | | an appended report. | | [facility] | | | | These results have been | | MEDICAL | | | | appended to a previously | | CENTER - | | | | preliminary verified | | LABORATORY | | | | report. | | | | + + + + + + | ALT | 21Comment: This is an | 6 - 45 U/L | [facility] | | | | appended report. These | | [facility] | | | | results have been | | MEDICAL | | | | appended to a previously | | CENTER - | | | | preliminary verified | | LABORATORY | | | | report. | | | | + + + + + + | Alkaline | 167 (H)Comment: This is | 40 - 110 U/L | [facility] | | | Phosphatase | an appended report. | | [facility] | | | | These results have been | | MEDICAL | | | | appended to a previously | | CENTER - | | | | preliminary verified | | LABORATORY | | | | report. | | | | + + + + + + | Globulin | 4.8 (H) | 2.1 - 3.8 g/dL | [facility] | | | | | | [facility] | | | | | | MEDICAL | | | | | | CENTER - | | | | | | LABORATORY | | + + + + + + | Albumin/Joana | 0.5 (L) | 0.8 - 2.0 | [facility] | | | bulin Ratio | | | [facility] | | | | | | MEDICAL | | | | | | CENTER - | | | | | | LABORATORY | | + + + + + + | BUN/Creatin | 12.0 | | [facility] | | | ine Ratio | | | [facility] | | | | | | MEDICAL | | | | | | CENTER - | | | | | | LABORATORY | | + + + + + + + + | Specimen | + + | Blood | + + + + + + + | Performing | Address | City/State/Zipcode | Phone Number | | Organization | | | | + + + + + | [facility] | [address] | [place] | [phone] | | [facility] | | [address] | | | - LABORATORY | | | | + + + + + CBC no Differential (12/31/2016 2:45 PM PDT) + + + + + + | Component | Value | Ref Range | Performed | Pathologist | | | | | At | Signature | + + + + + + | White Blood | 10.3 | 4.0 - 11.0 K/uL | [facility] | | | Cells | | | [facility] | | | | | | MEDICAL | | | | | | CENTER - | | | | | | LABORATORY | | + + + + + + | Red Blood | 3.48 (L) | 3.70 - 5.20 | [facility] | | | Cells | | M/uL | [facility] | | | | | | MEDICAL | | | | | | CENTER - | | | | | | LABORATORY | | + + + + + + | Hemoglobin | 11.1 (L) | 11.5 - 16.0 | [facility] | | | | | g/dL | [facility] | | | | | | MEDICAL | | | | | | CENTER - | | | | | | LABORATORY | | + + + + + + | Hematocrit | 33.4 (L) | 34.0 - 47.0 % | [facility] | | | | | | [facility] | | | | | | MEDICAL | | | | | | CENTER - | | | | | | LABORATORY | | + + + + + + | MCV | 95.9 | 83.0 - 101.0 fL | [facility] | | | | | | [facility] | | | | | | MEDICAL | | | | | | CENTER - | | | | | | LABORATORY | | + + + + + + | MCH | 31.8 | 28.0 - 35.0 pg | [facility] | | | | | | [facility] | | | | | | MEDICAL | | | | | | CENTER - | | | | | | LABORATORY | | + + + + + + | MCHC | 33.2 | 32.0 - 36.0 | [facility] | | | | | g/dL | [facility] | | | | | | MEDICAL | | | | | | CENTER - | | | | | | LABORATORY | | + + + + + + | RDW-CV | 15.8 (H) | <15.0 % | [facility] | | | | | | [facility] | | | | | | MEDICAL | | | | | | CENTER - | | | | | | LABORATORY | | + + + + + + | Platelet | 118 (L) | 140 - 440 K/uL | [facility] | | | Count | | | [facility] | | | | | | MEDICAL | | | | | | CENTER - | | | | | | LABORATORY | | + + + + + + | MPV | 8.0 | fL | [facility] | | | | | | [facility] | | | | | | MEDICAL | | | | | | CENTER - | | | | | | LABORATORY | | + + + + + + + + | Specimen | + + | Blood | + + + + + + + | Performing | Address | City/State/Zipcode | Phone Number | | Organization | | | | + + + + + | [facility] | [address] | [place] | [phone] | | [facility] | | [address] | | | - LABORATORY | | | | + + + + + documented in this encounter Visit Diagnoses + + | Diagnosis | + + | Seizure due to alcohol withdrawal, uncomplicated (HCC) - Primary | + + | Alcohol withdrawal, uncomplicated (HCC) | + + | Pneumonia due to infectious organism, unspecified laterality, unspecified part of lung | + + | Altered mental status, unspecified | + + | Anemia, unspecified type | + + | Ascites due to alcoholic cirrhosis (HCC) | + + | SBP (spontaneous bacterial peritonitis) (HCC) Spontaneous bacterial peritonitis | + + | Alcohol dependence with intoxication with complication (HCC) | + + | Hepatic encephalopathy (HCC) Hepatic encephalopathy | + + | Hyponatremia Hyposmolality and/or hyponatremia | + + documented in this encounter Administered Medications + +--------+ +--------+------+------+ | Medication Order | MAR | Action | Dose | Rate | Site | | | Action | Date | | | | + +--------+ +--------+------+------+ | acetaminophen (TYLENOL) tablet | Given | 01/02/20 | 650 mg | | | | 650 mg 650 mg, Oral, EVERY 4 | | 17 8:03 | | | | | HOURS PRN, Pain, or fever >= 38.3 | | PM PDT | | | | | C (101.5 F), Starting Sun | | | | | | | 12/31/16 at 2011 | | | | | | + +--------+ +--------+------+------+ +-------+ +--------+---+---+ | Given | 01/02/20 | 650 mg | | | | | 17 2:16 | | | | | | AM PDT | | | | +-------+ +--------+---+---+ +---+---+ | | | +---+---+ + +-------+ +--------+---+---+ | acetaminophen (TYLENOL) tablet | Given | 01/01/20 | 975 mg | | | | 975 mg 975 mg (rounded from | | 17 4:35 | | | | | 1,000 mg), Oral, ONCE, Sun | | PM PDT | | | | | 12/31/16 at 1620, For 1 dose | | | | | | + +-------+ +--------+---+---+ +---+---+ | | | +---+---+ + +-------+ +---------+---+---+ | carvedilol (COREG) tablet 6.25 | Given | 01/05/20 | 6.25 mg | | | | mg 6.25 mg, Oral, 2 TIMES DAILY | | 17 8:57 | | | | | WITH BREAKFAST & DINNER, First | | AM PDT | | | | | dose on Kasey 01/04/17 at 0800 | | | | | | + +-------+ +---------+---+---+ +---+---+ | | | +---+---+ + +---------+ +-----+-------+---+ | cefTRIAXone (ROCEPHIN) 1 g in | New Bag | 01/02/20 | 1 g | 100 | | | sodium chloride 0.9% 50 mL IVPB | | 17 8:36 | | mL/hr | | | 1 g, Intravenous, Administer over | | AM PDT | | | | | 30 Minutes, EVERY 24 HOURS | | | | | | | (Daily), First dose on Sun | | | | | | | 12/31/16 at 1835, Please obtain | | | | | | | urinalysis first Activate system | | | | | | | and mix before use., Indications: | | | | | | | UTI - LOWER, Fever | | | | | | + +---------+ +-----+-------+---+ +---------+ +-----+-------+---+ | New Bag | 01/01/20 | 1 g | 100 | | | | 17 6:46 | | mL/hr | | | | PM PDT | | | | +---------+ +-----+-------+---+ +---+---+ | | | +---+---+ + +---------+ +-----+-------+---+ | cefTRIAXone (ROCEPHIN) 1 g in | New Bag | 01/02/20 | 1 g | 100 | | | sodium chloride 0.9% 50 mL IVPB | | 17 3:28 | | mL/hr | | | 1 g, Intravenous, Administer over | | PM PDT | | | | | 30 Minutes, ONCE, 01/01/17 at | | | | | | | 1500, For 1 dose, Activate | | | | | | | system and mix before use., | | | | | | | Indications: suspected SBP | | | | | | + +---------+ +-----+-------+---+ +---+---+ | | | +---+---+ + +---------+ +-----+-------+---+ | cefTRIAXone (ROCEPHIN) 2 g in | New Bag | 01/04/20 | 2 g | 100 | | | sodium chloride 0.9% 50 mL IVPB | | 17 8:49 | | mL/hr | | | 2 g, Intravenous, Administer over | | AM PDT | | | | | 30 Minutes, EVERY 24 HOURS | | | | | | | (Daily), First dose (after last | | | | | | | modification) on Tu01/02/17 at | | | | | | | 0900, Please obtain urinalysis | | | | | | | first Activate system and mix | | | | | | | before use., Indications: UTI - | | | | | | | LOWER, Fever | | | | | | + +---------+ +-----+-------+---+ +---------+ +-----+-------+---+ | New Bag | 01/03/20 | 2 g | 100 | | | | 17 8:29 | | mL/hr | | | | AM PDT | | | | +---------+ +-----+-------+---+ +---+---+ | | | +---+---+ + +-------+ +-------+---+---+ | chlordiazePOXIDE (LIBRIUM) | Given | 01/04/20 | 10 mg | | | | capsule 10 mg 10 mg, Oral, 3 | | 17 2:15 | | | | | TIMES DAILY, First dose on Mon | | PM PDT | | | | | 01/01/17 at 1530 | | | | | | + +-------+ +-------+---+---+ +-------+ +-------+---+---+ | Given | 01/04/20 | 10 mg | | | | | 17 8:14 | | | | | | AM PDT | | | | +-------+ +-------+---+---+ | Given | 01/03/20 | 10 mg | | | | | 17 9:24 | | | | | | PM PDT | | | | +-------+ +-------+---+---+ +---+---+ | | | +---+---+ + +-------+ +-------+---+---+ | chlordiazePOXIDE (LIBRIUM) | Given | 01/05/20 | 10 mg | | | | capsule 10 mg 10 mg, Oral, EVERY | | 17 9:01 | | | | | 8 HOURS PRN, Withdrawal | | AM PDT | | | | | Symptoms, Starting 01/03/17 at | | | | | | | 2030 | | | | | | + +-------+ +-------+---+---+ +---+---+ | | | +---+---+ + +-------+ +-------+---+ + | enoxaparin (LOVENOX) 30 mg/0.3 | Given | 01/03/20 | 30 mg | | Abdomen- | | mL injection 30 mg 30 mg, | | 17 8:29 | | | LLQ | | Subcutaneous, EVERY 24 HOURS | | AM PDT | | | | | (Daily), First dose on Mon | | | | | | | 01/01/17 at 1530 | | | | | | + +-------+ +-------+---+ + +-------+ +-------+---+ + | Given | 01/02/20 | 30 mg | | Abdomen- | | | 17 3:32 | | | LLQ | | | PM PDT | | | | +-------+ +-------+---+ + +---+---+ | | | +---+---+ + +-------+ +-------+---+ + | enoxaparin (LOVENOX) 40 mg/0.4 | Given | 01/05/20 | 40 mg | | Abdomen- | | mL injection 40 mg 40 mg, | | 17 8:57 | | | LLQ | | Subcutaneous, EVERY 24 HOURS | | AM PDT | | | | | (Daily), First dose (after last | | | | | | | modification) on Sun01/03/17 at | | | | | | | 0900 | | | | | | + +-------+ +-------+---+ + +-------+ +-------+---+ + | Given | 01/04/20 | 40 mg | | Abdomen- | | | 17 8:53 | | | LLQ | | | AM PDT | | | | +-------+ +-------+---+ + +---+---+ | | | +---+---+ + +---------+ +---+--------+ + | folic acid 1 mg, thiamine | New Bag | 01/03/20 | | 102.2 | Left Arm | | (VITAMIN B-1) 100 mg, pyridOXINE | | 17 9:21 | | mL/hr | | | (VITAMIN B-6) 100 mg in sodium | | AM PDT | | | | | chloride 0.9% 100 mL IVPB | | | | | | | Intravenous, Administer over 60 | | | | | | | Minutes, DAILY, First dose on Sun | | | | | | | 12/31/16 at 2030, For 3 doses, | | | | | | | give 1st dose prior to any food | | | | | | | or dextrose containing IV., | | | | | | + +---------+ +---+--------+ + +---------+ +---+--------+---+ | New Bag | 01/02/20 | | 102.2 | | | | 17 9:18 | | mL/hr | | | | AM PDT | | | | +---------+ +---+--------+---+ | New Bag | 01/01/20 | | 102.2 | | | | 17 8:45 | | mL/hr | | | | PM PDT | | | | +---------+ +---+--------+---+ +---+---+ | | | +---+---+ + +-------+ +--------+---+---+ | LORazepam (ATIVAN) injection | Given | 01/05/20 | 0.5 mg | | | | 0.5 mg 0.5 mg, Intravenous, | | 17 3:24 | | | | | DIAZ METZGER REPEAT X 1, | | AM PDT | | | | | Insomnia, Starting 12/31/16 at | | | | | | | 2011 | | | | | | + +-------+ +--------+---+---+ +-------+ +--------+---+---+ | Given | 01/04/20 | 0.5 mg | | | | | 17 9:05 | | | | | | PM PDT | | | | +-------+ +--------+---+---+ | Given | 01/04/20 | 0.5 mg | | | | | 17 2:37 | | | | | | AM PDT | | | | +-------+ +--------+---+---+ +---+---+ | | | +---+---+ + +-------+ +------+---+---+ | LORazepam (ATIVAN) injection 1 | Given | 01/01/20 | 1 mg | | | | mg 1 mg, Intravenous, ONCE, Sun | | 17 2:45 | | | | | 12/31/16 at 1445, For 1 dose | | PM PDT | | | | + +-------+ +------+---+---+ +---+---+ | | | +---+---+ + +-------+ +------+---+---+ | LORazepam (ATIVAN) injection | Given | 01/02/20 | 2 mg | | | | 1-8 mg 1-8 mg, Intravenous, | | 17 9:14 | | | | | EVERY 15 MIN PRN, See Admin | | PM PDT | | | | | Instruction, Starting 12/31/16 | | | | | | | at 2011, FOR ICU USE ONLY | | | | | | | SEE ALCOHOL WITHDRAWAL PROTOCOL - | | | | | | | ICU FOR DETAILS Give dose as | | | | | | | indicated below with each | | | | | | | reassessment CIWA <10 (RASS 0): | | | | | | | No Dose, see protocol for | | | | | | | reassessment instructions CIWA | | | | | | | 10-14 (RASS +1): 2mg - Reassess | | | | | | | in 15min CIWA 15-19 (RASS +2): | | | | | | | 3mg - Reassess in 15min CIWA | | | | | | | 20-29 (RASS +3): 4mg - Reassess | | | | | | | in 15min If CIWA >29 (RASS +4) | | | | | | | on FIRST assessment: 6mg - | | | | | | | Reassess in 15 min If CIWA >29 | | | | | | | (RASS +4) on SUBSEQUENT | | | | | | | assessment: 8mg - Reassess in 15 | | | | | | | min , | | | | | | + +-------+ +------+---+---+ +-------+ +------+---+---+ | Given | 01/02/20 | 1 mg | | | | | 17 8:37 | | | | | | AM PDT | | | | +-------+ +------+---+---+ | Given | 01/02/20 | 1 mg | | | | | 17 2:15 | | | | | | AM PDT | | | | +-------+ +------+---+---+ +---+---+ | | | +---+---+ + +---------+ +-----+ +---+ | magnesium sulfate 2 g/50 mL | New Bag | 01/03/20 | 2 g | 25 mL/hr | | | IVPB 2 g 2 g, Intravenous, | | 17 9:21 | | | | | Administer over 120 Minutes, | | AM PDT | | | | | ONCE, [facility] 01/02/17 at 0830, For 1 | | | | | | | dose, Infuse over 2 hours., | | | | | | + +---------+ +-----+ +---+ +---+---+ | | | +---+---+ + +---------+ +-----+ +---+ | magnesium sulfate 2 g/50 mL | New Bag | 01/04/20 | 4 g | 25 mL/hr | | | IVPB 4 g 4 g, Intravenous, | | 17 4:08 | | | | | Administer over 240 Minutes, | | PM PDT | | | | | ONCE, [facility] 01/03/17 at 1545, For 1 | | | | | | | dose, Infuse over 2 hours., | | | | | | + +---------+ +-----+ +---+ +---+---+ | | | +---+---+ + +-------+ +------+---+---+ | ondansetron (ZOFRAN) injection | Given | 01/01/20 | 4 mg | | | | 4 mg 4 mg, Intravenous, ONCE, | | 17 4:13 | | | | | 12/31/16 at 1610, For 1 dose | | PM PDT | | | | + +-------+ +------+---+---+ +---+---+ | | | +---+---+ + +---------+ +---------+-------+---+ | piperacillin-tazobactam (ZOSYN) | New Bag | 01/01/20 | 3.375 g | 200 | | | 3.375 g in sodium chloride 0.9% | | 17 7:38 | | mL/hr | | | 100 mL IVPB 3.375 g, | | PM PDT | | | | | Intravenous, Administer over 0.5 | | | | | | | Hours, ONCE, 12/31/16 at 1830, | | | | | | | For 1 dose, Activate system and | | | | | | | mix before use., Indications: | | | | | | | Sepsis | | | | | | + +---------+ +---------+-------+---+ +---+---+ | | | +---+---+ + +-------+ +--------+---+---+ | potassium chloride 20 mEq/15 mL | Given | 01/03/20 | 20 mEq | | | | liquid 20 mEq 20 mEq, Oral, | | 17 10:30 | | | | | EVERY 2 HOURS, First dose on Sun | | AM PDT | | | | | 01/02/17 at 0830, For 2 doses, 20 | | | | | | | meq po every 2 hours for 2 doses, | | | | | | | | | | | | | + +-------+ +--------+---+---+ +-------+ +--------+---+---+ | Given | 01/03/20 | 20 mEq | | | | | 17 8:57 | | | | | | AM PDT | | | | +-------+ +--------+---+---+ +---+---+ | | | +---+---+ + +---------+ +---+-------+---+ | sodium chloride 0.9% (NS) 1,000 | New Bag | 01/01/20 | | 100 | | | mL with magnesium sulfate 1 g, | | 17 3:25 | | mL/hr | | | adult multivitamin 10 mL, | | PM PDT | | | | | thiamine (VITAMIN B-1) 100 mg, | | | | | | | folic acid 1 mg infusion at 100 | | | | | | | mL/hr, Intravenous, ONCE, Willis | | | | | | | 12/31/16 at 1445, For 1 dose | | | | | | + +---------+ +---+-------+---+ +---+---+ | | | +---+---+ + +---------+ +--------+-------+---+ | sodium chloride 0.9% (NS) bolus | New Bag | 01/01/20 | 1,000 | 2000 | | | 1,000 mL 1,000 mL, Intravenous, | | 17 3:15 | mLs | mL/hr | | | Administer over 30 Minutes, | | PM PDT | | | | | ONCE, 12/31/16 at 1445, For 1 | | | | | | | dose | | | | | | + +---------+ +--------+-------+---+ +---+---+ | | | +---+---+ + +---------+ +--------+-------+---+ | sodium chloride 0.9% (NS) bolus | New Bag | 01/01/20 | 1,000 | 2000 | | | 1,000 mL 1,000 mL, Intravenous, | | 17 4:14 | mLs | mL/hr | | | Administer over 30 Minutes, | | PM PDT | | | | | ONCE, 12/31/16 at 1555, For 1 | | | | | | | dose | | | | | | + +---------+ +--------+-------+---+ +---+---+ | | | +---+---+ + +---------+ +---+-------+---+ | sodium chloride 0.9% (NS) | New Bag | 01/04/20 | | 100 | | | infusion at 50 mL/hr, | | 17 12:29 | | mL/hr | | | Intravenous, CONTINUOUS, Starting | | PM PDT | | | | | 12/31/16 at 2030 | | | | | | + +---------+ +---+-------+---+ +---------+ +--------+-------+---+ | New Bag | 01/04/20 | 1,000 | 100 | | | | 17 12:53 | mLs | mL/hr | | | | AM PDT | | | | +---------+ +--------+-------+---+ | New Bag | 01/03/20 | | 100 | | | | 17 4:21 | | mL/hr | | | | PM PDT | | | | +---------+ +--------+-------+---+ +---+---+ | | | +---+---+ + +-------+ +--------+---+---+ | thiamine (VITAMIN B-1) tablet | Given | 01/05/20 | 100 mg | | | | 100 mg 100 mg, Oral, DAILY, | | 17 8:57 | | | | | First dose on [facility] 01/04/17 at 0900 | | AM PDT | | | | + +-------+ +--------+---+---+ +---+---+ | | | +---+---+ + +---------+ + +--------+---+ | vancomycin 1,000 mg in sodium | New Bag | 01/02/20 | 1,000 mg | 166.7 | | | chloride 0.9% 250 mL IVPB 1,000 | | 17 8:56 | | mL/hr | | | mg (rounded from 1,120 mg = 20 | | PM PDT | | | | | mg/kg | | | | | | | 56 kg), Intravenous, Administer | | | | | | | over 90 Minutes, EVERY 12 HOURS | | | | | | | INTERVAL, First dose on Mon | | | | | | | 01/01/17 at 2030, Activate system | | | | | | | and mix before use., Indications: | | | | | | | Bacteremia | | | | | | + +---------+ + +--------+---+ +---+---+ | | | +---+---+ documented in this encounter
--- OUTSIDE RECORDS SUMMARY | ~2020-01-23 | XMS | Encounter Summary ---
Demographics + + + | Address | [address] | | | [place] [address] | + + + | Home Phone | | + + + | Preferred Language | Unknown | + + + | Marital Status | Single | + + + | Jew Affiliation | 1041 | + + + | Race | or | + + + | Ethnic Group | Not or | + + + Author + + + | Author | [facility] | | | and [place] | + + + | Organization | [facility] | | | and [place] | + + + | Address | Unknown | + + + | Phone | Unavailable | + + + Support + + + + + | Name | Relationship | Address | Phone | + + + + + | Joanne Pham | ECON | [address] | | | | | [place] | | | | | [address] | | + + + + + | Viktor Son | EDDIE | Unknown | | + + + + + | Edd Gill | ECON | Unknown | | + + + + + | Conner Barber | ECON | Unknown | | + + + + + Care Team Providers + +------+ + | Care Jig Mill Operator Name | Role | Phone | + +------+ + | Trixie Rose PA-C | PCP | | + +------+ + Reason for Visit + +--------+ + | Reason | Onset | Comments | | | Date | | + +--------+ + | Referral | 08/12/ | | | | 2020 | | + +--------+ + Encounter Details +--------+ + + + + | Date | Type | Department | Care Team | Description | +--------+ + + + + | 08/12/ | Telephone | [facility] | Lion Ballard | Referral | | 2020 | | GASTROENTEROLOGY | MD Dimitri [address] | | | | | [address] | [place] [address] | | | | | [place], [place] | [phone] | | | | | [address] | | | | | | [phone] | | | +--------+ + + + [...] 6 Cans of beer | 6.0 | Alcoholic | | | | | Drinks/day: 6 pack | | | | | [...] this encounter Miscellaneous Notes Telephone Encounter - Deborah Mancuso - 08/28/2019 11:19 AM [facility] [phone]. Spoke to Rox, she was able to get patient scheduled for VV appt, she stat ed she would call us back to give us the email address to send VV instructions.Electronicall y signed by Deborah Mancuso at 08/28/2019 11:26 AM PDTTelephone Encounter - Princess Parsons - 08/28/2019 10:30 AM PDTReturned call, Michael was checking to see if we had received a linda l from patient's living facility, I informed her that I did not see any current notes they c all in, she did give me an updated # for them [phone]. I will call to coordinate apt. E lectronically signed by Princess Parsons at 08/28/2019 10:31 AM PDTTelephone Encounter - Lavern Varela - 08/27/2019 1:52 PM PDTMichael, is calling again for Referral and would like a call back. Additional Call Details: Michael, from [facility], Calling to schedule from Referral Can mandi jacobson reached at [phone] elephone Encounter - Julia Causey - 08/27/2019 9:40 AM PDTMichael, is returning call for Referral and would like a call back. Additional Call Details: Provided information on the phone number for where patient is loc ated. Correct phone number [phone] elephone Encounter - Deborah Rivero - 08/22/2019 11:53 AM PDTAttempted to call number provided by tahira Rodriguez ed following message *we are sorry you have reached a number that has been disconnected or i s no longer in service* elephone Encounter - Katina Manriquez - 08/20/2019 2:14 PM PDTMicabby- [facility], is madelin ng again for Referral and would like a call back. Additional Call Details: Caller states patient is currently in an assisted living home [facility] led [facility] in [place] and can assist with transportation of patient. Can call to schedule at [phone]. States anyone who answers can assist. elephone Encounter - Deborah Rivero - 08/13/2019 3:12 PM PDTReturned Michael's call, she stated patient had a ne w number to call [phone]. She stated patient still needed to be scheduled for appointme nt. She stated if patient stated she needed transportation that they can assist with that. I let her know that we are offering virtual visits so maybe that could be a better option for patient. She stated that patient did not really know how to operate her current phone so di d not know if this would be a good option. She then stated she might have a composing machine operator that might assist her with this and is going to try to get in contact with them. I told her I wou ld try to reach out to patient on that new number provided. I called the number provided and it says it is no longer in service. I call Michael back and left her a vm informing her of this. elephone Encounter - Julia Causey - 08/13/2019 2:30 PM Erin, is call ing regarding Referral and would like a call back. Additional Call Details: Requesting call back to schedule from referral. If this is a symptom based call, was patient offered triage? Not Applicable If this is a symptom based call and you were unable to immediately transfer the call to a miguelina mueller electric razor mechanic was caller made aware that if at any time she feels it is an emergency they sh ould call 911 or go to the nearest emergency room? not applicable documented in this encounter Plan of Treatment Not on filedocumented as of this encounter Visit Diagnoses Not on filedocumented in this encounter"
--- OUTSIDE RECORDS SUMMARY | ~2020-01-23 | XMS | Encounter Summary ---
Demographics + + + | Address | [address] | | | [place] [address] | + + + | Home Phone | | + + + | Preferred Language | Unknown | + + + | Marital Status | Single | + + + | Confucianism Affiliation | [id number] | + + + | Race | or | + + + | Ethnic Group | Not or | + + + Author + + + | Author | [facility] | | | and [place] | + + + | Organization | [facility] | | | and [place] | + + + | Address | Unknown | + + + | Phone | Unavailable | + + + Support + + + + + | Name | Relationship | Address | Phone | + + + + + | Joanne Pham | ECON | [address] | | | | | [place] | | | | | [address] | | + + + + + | Viktor Son | EDDIE | Unknown | | + + + + + | Edd Gill | ECON | Unknown | | + + + + + | Conner Barber | ECON | Unknown | | + + + + + Care Team Providers + +------+ + | Care Finishing Supervisor Plastic Sheets Name | Role | Phone | + +------+ + | Trixie Rose PA-C | PCP | | + +------+ + Reason for Visit Auth/Cert +--------+--------+ + + + + | Status | Reason | Specialty | Diagnoses / | Referred By | Referred To | | | | | Procedures | Contact | Contact | +--------+--------+ + + + + | | | | Diagnoses | | | | | | | Acities | | | +--------+--------+ + + + + Encounter Details +--------+---------+ + + + | Date | Type | Department | Care Team | Description | +--------+---------+ + + + | 09/07/ | Surgery | [facility] | Robel Taylor | DI: CT | | 2016 | | MED CTR IR INTRA OP | MD Char [address] [place] [address] | | | | | [address] | [place] | | | | | [place] | [address] | | | | | [address] | | | | | | [phone] | | | +--------+---------+ + + + Social History [...] + + + | Blood Pressure | 88/51 | 09/08/2015 1:30 PM | | | | | PDT | | + + + + + | Pulse | 74 | 09/08/2015 1:30 PM | | | | | PDT | | + + + + + | Temperature | 36.1 C (97 F) | 09/08/2015 9:08 AM | | | | | PDT | | + + + + + | Respiratory Rate | 20 | 09/08/2015 1:30 PM | | | | | PDT | | + + + + + | Oxygen Saturation | 100% | 09/08/2015 1:30 PM | | | | | PDT | | + + + + + | Inhaled Oxygen | - | - | | | Concentration | | | | + + + + + | Weight | 73.6 kg (162 lb 4.1 | 09/04/2015 4:38 AM | | | | oz) | PDT | | + + + + + | Height | 170.2 cm (5' 7.01") | 09/01/2015 5:32 PM | | | | | PDT | | + + + + + | Body Mass Index | 25.41 | 09/01/2015 5:32 PM | | | | | PDT [...] documented as of this encounter Discharge Summaries Jose Carlos Albert MD - 09/10/2015 11:16 AM PDT DISCHARGE SUMMARY Patient Name: Shaila Son : 1970 Date of Admission: 09/01/2015 Date of Discharge: 09/10/2015 Admitting Physician: Marialuisa Roman MD Discharging Physician: Jose Carlos Albert MD Primary Care Provider: Trixie Rose PA-C Discharge Diagnoses: Active Problems: Anemia Hepatic encephalopathy Ascites due to alcoholic cirrhosis Alcohol dependence with intoxication with complication Hyponatremia Resolved Problems: * No resolved hospital problems. * Patient Active Problem List Diagnosis Anemia Hepatic encephalopathy Ascites due to alcoholic cirrhosis Alcohol dependence with intoxication with complication Hyponatremia Consultants: Pathology, and Radiology Procedures: 1. Paracentesis 2. Liver Biopsy Reason for Admission: Please refer to the H&P for full details. In short, this is a 45 y.o. female with a histor y of alcoholism, cirrhosis with ascites and hyponatremia who was transferred from [facility]. She was found to have severe weakness and a sodium of 125. Patient with histor y of cirrhosis due to alcohol. Upon admission, the patient underwent paracentesis with 5 lit ers cloudy fluid removed. She had significant red cells in her paracentesis tap, and a persi stent leak from the site of the paracentesis. This required suturing. There was no growth f rom her ascites fluid. She did receive IV rocephin prior to paracentesis. The patient was tr eated with lactulose for ammonia of 38. She required transfusion for low hemoglobin. Her hem oglobin remained stable afterwards. CT of the abdomen with contrast was obtained due to bloody paracentesis. It showed a lobula r mass of the right hepatic lobe of her liver. CT guided biopsy was ordered, and the mass wa s noted to have nodular changes without evidence of malignancy. The patient had sufficient s ample size for this determination. The patient's paracentesis was likely a bloody tap, from a vessel present in her abdomen. The nodular area of her liver is likely related to cirrhoti c changes. The patient is hemodynamically stable and is being discharged to [facility] with continued aldactone, lasix, blood pressure control for portal hypertension and lactulos e. Follow-up at [facility] with Juan Holguin. This patient's pathology report will be forwarded from Dr. Luis Miguel Bucio (pathologist in [place]). Code Status: Full Code Disposition: [facility] Discharge Condition: fair Follow-up Information Follow up with Trixie Rose PA-C In 1 week. Specialty: Internal Medicine Contact information: [address] [place] [address] Discharge Medications New Medications Details carvedilol 12.5 mg tablet Take 1 tablet by mouth 2 times daily (with breakfast & dinner). aka: COREG furosemide 40 mg tablet Take 1 tablet by mouth Daily. aka: LASIX lactulose 10 g/15 mL solution Take 30 mLs by mouth 2 times daily. levETIRAcetam 500 mg tablet Take 1 tablet by mouth 2 times daily. aka: KEPPRA LORazepam 1 mg tablet Take 1 tablet by mouth every 4 hours as needed. aka: ATIVAN oxyCODONE 5 mg tablet Take 2 tablets by mouth every 6 hours as needed for Pain. aka: ROXICODONE pantoprazole 40 mg tablet Take 1 tablet by mouth 2 times daily (before meals). aka: PROTONIX spironolactone 100 MG tablet Take 1 tablet by mouth 2 times daily. aka: ALDACTONE Studies With Pending Results: None Greater than 30 minutes were spent on discharge and coordination of post-hospital care. Electronically signed by: Jose Carlos Albert MD, 09/10/2015 11:16 [facility] documented in this encounter Medications at Time of Discharge + + + +---------+ + + | Medication | Sig | Dispensed | Refills | Start | End Date | | | | | | Date | | + + + +---------+ + + | carvedilol (COREG) | Take 1 tablet by | 60 | 0 | 09/10/19 | | | 12.5 mg tablet | mouth 2 times daily | tablet | | 16 | 7 | | | (with breakfast & | | | | | | | dinner). | | | | | + + + +---------+ + + | furosemide (LASIX) | Take 1 tablet by | 30 | 0 | 09/10/19 | | | 40 mg tablet | mouth Daily. | tablet | | 16 | 7 | + + + +---------+ + + | lactulose 10 g/15 | Take 30 mLs by mouth | 1892 mL | 0 | 09/10/19 | | | mL solution | 2 times daily. | | | 16 | 7 | + + + +---------+ + + | levETIRAcetam | Take 1 tablet by | 60 | 0 | 09/10/19 | | | (KEPPRA) 500 mg | mouth 2 times daily. | tablet | | 16 | 7 | | tablet | | | | | | + + + +---------+ + + | LORazepam (ATIVAN) | Take 1 tablet by | 60 | 0 | 09/10/19 | | | 1 mg tablet | mouth every 4 hours | tablet | | 16 | 7 | | | as needed. | | | | | + + + +---------+ + + | oxyCODONE | Take 2 tablets by | 30 | 0 | 09/10/19 | | | (ROXICODONE) 5 mg | mouth every 6 hours | tablet | | 16 | 7 | | tablet | as needed for Pain. | | | | | + + + +---------+ + + | pantoprazole | Take 1 tablet by | 30 | 0 | 09/10/19 | | | (PROTONIX) 40 mg | mouth 2 times daily | tablet | | 16 | 7 | | tablet | (before meals). | | | | | + + + +---------+ + + | spironolactone | Take 1 tablet by | 30 | 0 | 09/10/19 | | | (ALDACTONE) 100 MG | mouth 2 times daily. | tablet | | 16 | 7 | | tablet | | | | | | + + + +---------+ + + documented as of this encounter Progress Notes Jose Carlos Albert MD - 09/09/2015 5:37 PM PDT [facility] Hospitalist Progress Note Shaila Son is a 45 y.o. female SUBJECTIVE: Seen and examined by me this morning. Patient is s/p CT guided liver biopsy. Abdominal pain improved with IV morphine. No nausea or vomiting overnight. Pending biopsy report VITALS: Temp: 36.8 C (98.2 F), Pulse: 71, Resp: 18, BP: 119/57 mmHg, SpO2 100 % on nasal cannul a (placed on arrival to CT area. ) at flow rate 3L/min Temp Min: 36.3 C (97.3 F) Max: 37.5 C (99.5 F) Weight: 88.4 kg (194 lb 14.2 oz) Intake/Output Summary (Last 24 hours) at 09/09/15 1737 Last data filed at 09/09/15 1600 Gross per 24 hour Intake 2192 ml Output 1900 ml Net 292 ml PHYSICAL EXAM: General: nad Cardiovascular: S1s2+ no m/t/g Respiratory: CTA-bl Abdomen: S/nt/distended Extremities: No joint effusions Skin: No lesions or rashes Neurological: Cn's intact 2-12 DIAGNOSTIC STUDIES: Available data and images were reviewed personally. Significant results and findings are a ddressed here or in the Assessment and Plan. Recent Results (from the past 24 hour(s)) CBC with Differential Result Value Ref Range WBC 4.1 4.0-11.0 K/uL RBC 2.67 (L) 3.70-5.20 M/uL Hgb 8.1 (L) 11.5-16.0 g/dL Hct 24.2 (L) 34.0-47.0 % MCV 90.7 83.0-101.0 fL MCH 30.3 28.0-35.0 pg MCHC 33.4 32.0-36.0 g/dL RDW-CV 17.8 (H) <15.0 % Platelet Count 167 140-440 K/uL MPV 7.8 fL % Neutrophils 53.2 45.0-82.0 % % Lymphocytes 17.9 (L) 20.0-45.0 % % Monocytes 17.9 (H) 4.0-12.0 % % Eosinophils 7.0 (H) 0.0-5.0 % % Basophils 4.0 (H) 0.0-1.0 % Absolute Neutrophils 2.20 1.80-8.50 K/uL Absolute Lymphocytes 0.70 0.60-3.20 K/uL Absolute Monocytes 0.70 0.00-1.00 K/uL Absolute Eosinophils 0.30 0.00-0.40 K/uL Absolute Basophils 0.20 (H) 0.00-0.10 K/uL Basic Metabolic Panel Result Value Ref Range NA 131 (L) 136-149 mmol/L K 3.3 (L) 3.5-5.1 mmol/L CL 107 98-109 mmol/L CO2 21 (L) 24-31 mmol/L ANION GAP 3 3-16 mmol/L GLUCOSE 88 70-109 mg/dL BUN 6 (L) 7-18 mg/dL Creatinine, Serum/Plasma 0.58 (L) 0.60-1.30 mg/dL eGFR if not >60 >=60 mL/min/1.73m2 CALCIUM 6.9 (L) 8.3-10.5 mg/dL BUN/CREA 10.3 Magnesium Result Value Ref Range MG 1.0 (L) 1.8-2.5 mg/dL PRODUCT: RBC Result Value Ref Range Product Code RBC Leukocytes Reduced UNIT # [id number] UNIT ABO O UNIT RH POS CROSSMATCH INTERP Compatible Unit Status Returned Ct Guided Biopsy Liver 09/08/2015 CT GUIDED BIOPSY LIVER. 09/08/2015 11:43 AM HISTORY: eval for HCC. COMPARISON: CT abdomen pelvis 09/06/2015 PROCEDURE: Risks, benefits, and alternatives to the procedure were discussed with the patient, who signed consent following an opportunity to ask question s. The patient's name, date of , and procedure site were confirmed prior to proceeding . The patient's H & P, which had been completed within the last 30 days, was reviewed and a ssessed for any recent changes in health and to reconfirm need for biopsy procedure. No sig nificant changes in the patient's health or physical exam were noted. The patient was prepp ed and draped in usual sterile fashion. Local anesthesia was provided using 1% buffered Lid ocaine. Conscious sedation was also provided using Fentanyl and Versed, administered by a newton hinton who was present during the entire procedure. Using CT guidance, two core biopsies were obtained of the lesion of interest in the right lobe of the liver. The specimen tissue was then placed immediately into formalin to be sent to pathology for further evaluation. A re peat of the CT scan was performed following each biopsy to assess for possible hemorrhage. The biopsy device was then removed. Hemostasis was achieved at the skin surface. The patie nt tolerated the procedure well, without immediate complication. The patient was transferr ed to recovery in stable condition. Patient will remain in a right decubitus position for 1 hour, and then be discharged in 2 hours if the patient meets criteria. Nursing staff will n otify of any complaints or complications. FINDINGS: Biopsy introducer needle is seen with in the liver corresponding to the area of enhancing contour abnormality seen at the peripher y of the right lobe of the liver on the prior study from 09/06/2015. IMPRESSION - Successful CT-guided biopsy of the liver, as described above. Dictated and Signed by: Michael Taylor MD Electronically signed: 09/08/2015 1:37 PM ASSESSMENT and PLAN: Active Hospital Problems Diagnosis Anemia Hepatic encephalopathy Ascites due to alcoholic cirrhosis Alcohol dependence with intoxication with complication Hyponatremia Resolved Hospital Problems Diagnosis Date Noted Date Resolved No resolved problems to display. 1. Liver mass- s/p biopsy. Concern for hepatocellular adenoma 2. Ascites with bloody tap 3. Alcohol dependence 4. Hyponatremia 5. History of seizure disorder Disposition : SNF Prophylaxis : SCD's while in bed Current Facility-Administered Medications: carvedilol 12.5 mg Oral BID WC cefTRIAXone (ROCEPHIN) IV 2 g Intravenous Daily furosemide 40 mg Oral Daily lactulose 30 mL Oral BID levETIRAcetam 500 mg Oral BID LORazepam 1 mg Oral Q4H PRN morphine 2-4 mg Intravenous Q2H PRN ondansetron 4 mg Intravenous Q8H PRN pantoprazole 40 mg Oral BID AC sodium chloride 0.9% Intravenous Continuous spironolactone 100 mg Oral BID Total time of approximately 26 minutes was spent with the patient and/or patient's family, and/or on the patient's floor/unit, of which more than 50% was spent counseling and/or coord ination the patient's care as outlined above. Jose Carlos Albert 09/09/2015 17:[address] [facility] Portions of this chart may have been created with [employer] voice recognition software. Occasi onal wrong-word or sound-alike substitutions may have occurred due to the inherent gallardo itations of voice recognition software. Please read the chart carefully and recognize, using context, where these substitutions have occurred Jose Carlos Garcia MD - 09/08/2015 5:35 PM PDT [facility] Hospitalist Progress Note Shaila Son is a 45 y.o. female SUBJECTIVE: Patient examined by me this morning. She underwent CT guided biopsy of the mass of the righ t lobe of her liver today. Pain has been better controlled, now with IV pain medications. VITALS: Temp: 35.9 C (96.6 F), Pulse: 77, Resp: 18, BP: 97/54 mmHg, SpO2 99 % on nasal cannula (placed on arrival to CT area. ) at flow rate 3L/min Temp Min: 35.9 C (96.6 F) Max: 37 C (98.6 F) Weight: 88.4 kg (194 lb 14.2 oz) Intake/Output Summary (Last 24 hours) at 09/08/15 1735 Last data filed at 09/08/15 1400 Gross per 24 hour Intake 1374 ml Output 250 ml Net 1124 ml PHYSICAL EXAM: General: nad Cardiovascular: S1s2+ no m/t/g Respiratory: cta-bl Abdomen: S/nt/nd+bs Extremities: No joint effusions or changes in ROM Skin: No rashes or lesions Neurological: CN's intact 2-12 DIAGNOSTIC STUDIES: Available data and images were reviewed personally. Significant results and findings are a ddressed here or in the Assessment and Plan. Recent Results (from the past 24 hour(s)) CBC with Differential Result Value Ref Range WBC 5.6 4.0-11.0 K/uL RBC 2.78 (L) 3.70-5.20 M/uL Hgb 8.4 (L) 11.5-16.0 g/dL Hct 25.0 (L) 34.0-47.0 % MCV 90.1 83.0-101.0 fL MCH 30.1 28.0-35.0 pg MCHC 33.4 32.0-36.0 g/dL RDW-CV 17.7 (H) <15.0 % Platelet Count 168 140-440 K/uL MPV 8.3 fL % Neutrophils 60.6 45.0-82.0 % % Lymphocytes 9.3 (L) 20.0-45.0 % % Monocytes 18.9 (H) 4.0-12.0 % % Eosinophils 7.9 (H) 0.0-5.0 % % Basophils 3.3 (H) 0.0-1.0 % Absolute Neutrophils 3.40 1.80-8.50 K/uL Absolute Lymphocytes 0.50 (L) 0.60-3.20 K/uL Absolute Monocytes 1.00 0.00-1.00 K/uL Absolute Eosinophils 0.40 0.00-0.40 K/uL Absolute Basophils 0.20 (H) 0.00-0.10 K/uL Basic Metabolic Panel Result Value Ref Range NA 132 (L) 136-149 mmol/L K 3.3 (L) 3.5-5.1 mmol/L CL 106 98-109 mmol/L CO2 21 (L) 24-31 mmol/L ANION GAP 5 3-16 mmol/L GLUCOSE 85 70-109 mg/dL BUN 10 7-18 mg/dL Creatinine, Serum/Plasma 0.65 0.60-1.30 mg/dL eGFR if not >60 >=60 mL/min/1.73m2 CALCIUM 6.8 (L) 8.3-10.5 mg/dL BUN/CREA 15.4 Protime INR Result Value Ref Range PROTIME 18.8 (H) 11.3-13.9 seconds INR 1.51 (H) 0.90-1.10 PTT Result Value Ref Range PTT 37 (H) 22-[address] Guided Biopsy Liver 09/08/2015 CT GUIDED BIOPSY LIVER. 09/08/2015 11:43 AM HISTORY: eval for HCC. COMPARISON: CT abdomen pelvis 09/06/2015 PROCEDURE: Risks, benefits, and alternatives to the procedure were discussed with the patient, who signed consent following an opportunity to ask question s. The patient's name, date of , and procedure site were confirmed prior to proceeding . The patient's H & P, which had been completed within the last 30 days, was reviewed and a ssessed for any recent changes in health and to reconfirm need for biopsy procedure. No sig nificant changes in the patient's health or physical exam were noted. The patient was prepp ed and draped in usual sterile fashion. Local anesthesia was provided using 1% buffered Lid ocaine. Conscious sedation was also provided using Fentanyl and Versed, administered by a newton hinton who was present during the entire procedure. Using CT guidance, two core biopsies were obtained of the lesion of interest in the right lobe of the liver. The specimen tissue was then placed immediately into formalin to be sent to pathology for further evaluation. A re peat of the CT scan was performed following each biopsy to assess for possible hemorrhage. The biopsy device was then removed. Hemostasis was achieved at the skin surface. The patie nt tolerated the procedure well, without immediate complication. The patient was transferr ed to recovery in stable condition. Patient will remain in a right decubitus position for 1 hour, and then be discharged in 2 hours if the patient meets criteria. Nursing staff will n otify of any complaints or complications. FINDINGS: Biopsy introducer needle is seen with in the liver corresponding to the area of enhancing contour abnormality seen at the peripher y of the right lobe of the liver on the prior study from 09/06/2015. IMPRESSION - Successful CT-guided biopsy of the liver, as described above. Dictated and Signed by: Michael Taylor MD Electronically signed: 09/08/2015 1:37 PM ASSESSMENT and PLAN: Active Hospital Problems Diagnosis Anemia Hepatic encephalopathy Ascites due to alcoholic cirrhosis Alcohol dependence with intoxication with complication Hyponatremia Resolved Hospital Problems Diagnosis Date Noted Date Resolved No resolved problems to display. 1. Liver mass- s/p biopsy. Concern for hepatocellular carcinoma 2. Ascites with bloody tap 3. Alcohol dependence 4. Hyponatremia 5. History of seizure disorder Disposition : tbd Prophylaxis : scd's Current Facility-Administered Medications: carvedilol 12.5 mg Oral BID WC cefTRIAXone (ROCEPHIN) IV 2 g Intravenous Daily furosemide 40 mg Oral Daily lactulose 30 mL Oral BID levETIRAcetam 500 mg Oral BID LORazepam 1 mg Oral Q4H PRN morphine 2-4 mg Intravenous Q2H PRN ondansetron 4 mg Intravenous Q8H PRN pantoprazole 40 mg Oral BID AC sodium chloride 0.9% Intravenous Continuous spironolactone 100 mg Oral BID Total time of approximately 32 minutes was spent with the patient and/or patient's family, and/or on the patient's floor/unit, of which more than 50% was spent counseling and/or coord ination the patient's care as outlined above. Jose Carlos Albert 09/08/2015 17:[address] [facility] Portions of this chart may have been created with [employer] voice recognition software. Occasi onal wrong-word or sound-alike substitutions may have occurred due to the inherent gallardo itations of voice recognition software. Please read the chart carefully and recognize, using context, where these substitutions have occurred itchetana, Jose Carlos Chen MD - 09/07/2015 5:42 PM PDT [facility] Hospitalist Progress Note Shaila Son is a 45 y.o. female SUBJECTIVE: Examined by me this morning. 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 Planning for CT guided biopsy tomorrow with radiology. Patient is complaining of right side d flank pain, likely in the location of the capsular distention from the liver mass. Adding morphine to his pain medication regimen. VITALS: Temp: 37.1 C (98.7 F), Pulse: 70, Resp: 18, BP: 115/51 mmHg, SpO2 100 % on room air at flow rate L/min Temp Min: 36.9 C (98.4 F) Max: 37.6 C (99.7 F) Weight: 88.4 kg (194 lb 14.2 oz) Intake/Output Summary (Last 24 hours) at 09/07/15 1742 Last data filed at 09/07/15 1426 Gross per 24 hour Intake 815 ml Output 625 ml Net 190 ml PHYSICAL EXAM: General: mild distress Cardiovascular: S1s2+ no m/t/g Respiratory: cta-bl Abdomen: Right sided flank pain, worse with palpation Extremities: No joint effusions or changes in ROM Skin: No lesions or rashes Neurological: CN's intact 2-12 DIAGNOSTIC STUDIES: Available data and images were reviewed personally. Significant results and findings are a ddressed here or in the Assessment and Plan. Recent Results (from the past 24 hour(s)) PRODUCT: RBC Result Value Ref Range Product Code RBC Leukocytes Reduced UNIT # [id number] UNIT ABO O UNIT RH POS CROSSMATCH INTERP Compatible Unit Status Transfused Comprehensive Metabolic Panel Result Value Ref Range NA 130 (L) 136-149 mmol/L K 3.4 (L) 3.5-5.1 mmol/L CL 103 98-109 mmol/L CO2 22 (L) 24-31 mmol/L ANION GAP 5 3-16 mmol/L GLUCOSE 92 70-109 mg/dL BUN 8 7-18 mg/dL Creatinine, Serum/Plasma 0.61 0.60-1.30 mg/dL eGFR if not >60 >=60 mL/min/1.73m2 CALCIUM 6.9 (L) 8.3-10.5 mg/dL ALBUMIN 1.4 (L) 3.2-5.0 g/dL BILIRUBIN TOTAL 0.9 0.1-1.5 mg/dL Total protein 5.1 (L) 6.0-7.8 g/dL AST 32 10-42 U/L ALT 10 6-45 U/L ALK PHOS 82 40-110 U/L GLOBULIN 3.7 2.1-3.8 g/dL Albumin/Globulin ratio 0.4 (L) 0.8-2.0 BUN/CREA 13.1 CBC with Differential Result Value Ref Range WBC 4.2 4.0-11.0 K/uL RBC 2.67 (L) 3.70-5.20 M/uL Hgb 8.0 (L) 11.5-16.0 g/dL Hct 24.2 (L) 34.0-47.0 % MCV 90.8 83.0-101.0 fL MCH 30.2 28.0-35.0 pg MCHC 33.2 32.0-36.0 g/dL RDW-CV 17.8 (H) <15.0 % Platelet Count 138 (L) 140-440 K/uL MPV 8.1 fL % Neutrophils 50.7 45.0-82.0 % % Lymphocytes 20.7 20.0-45.0 % % Monocytes 19.5 (H) 4.0-12.0 % % Eosinophils 6.8 (H) 0.0-5.0 % % Basophils 2.3 (H) 0.0-1.0 % Absolute Neutrophils 2.10 1.80-8.50 K/uL Absolute Lymphocytes 0.90 0.60-3.20 K/uL Absolute Monocytes 0.80 0.00-1.00 K/uL Absolute Eosinophils 0.30 0.00-0.40 K/uL Absolute Basophils 0.10 0.00-0.10 K/uL Protime INR Result Value Ref Range PROTIME 19.8 (H) 11.3-13.9 seconds INR 1.61 (H) 0.90-1.10 PTT Result Value Ref Range PTT 37 (H) 22-[address] Abdomen Pelvis W Wo Contrast 09/07/2015 CT ABDOMEN PELVIS W WO CONTRAST 09/06/2015 3:59 PM HISTORY: Hemorrhagic ascites with liver disease; evaluate for neoplastic source. COMPARISON: CT scan of the abdomen and pelvis dated 03/17/2015. PROTOCOL: Axial images of the abdomen and pelvis were obtained aft er administration of 90 mL Omnipaque 350. Coronal and sagittal reformations were acquired. FINDINGS: The heart is enlarged. A small right pleural effusion is present. Esophageal varic es are observed. The liver has a cirrhotic appearance with lobular contour. A hyperdense lo bular area is in the right hepatic lobe segment 8 that measures 4.4 x 6.9 cm (AP, transverse ) with lateral capsular bulging. Associated enhancement is present. Multiple calcified galls tones are visualized with no definite evidence for cholecystitis. Biliary ducts are unremark able. The spleen is unremarkable. The pancreas demonstrates normal parenchyma and a normal pancreatic duct. Adrenal glands are normal. The right kidney and visualized ureter are norm al. The left kidney and visualized ureter are normal. Stomach, small bowel, and terminal i leum are normal. The appendix is not well seen. Colon is unremarkable. Aorta is nonaneurysm al. The iliac arteries are normal. There is thinning of the portal veins with appearance of prior thrombus and associated collateral vessels in the sean hepatis. Splenic venous collat erals are seen along with a left splenorenal shunt. No enlarged lymph nodes are visualized within the omentum or retroperitoneum. There is a moderate to large amount of ascites part icularly in the lower quadrants and pelvis. Bladder is normal. Uterus and adnexa are gio l. There is moderate, diffuse subcutaneous edema consistent with anasarca. There are no acu te osseous abnormalities. IMPRESSION - Hyperdense enhancing lobular mass in right hepatic l obe with bulging of the right liver capsule that is suspicious for hemorrhagic hepatocellula r carcinoma. This is suspicious for a Li-Rads M lesion. The liver is cirrhotic. Further mere acterization can be obtained with MRI or biopsy. Findings of portal venous hypertension wit h multiple collateral vasculature. Gallstones with no evidence for cholecystitis. Moderate to large ascites. Cardiomegaly. Small right pleural effusion. NOTE: LI-RADS categories s hould be interpreted in the context of other available data, such as biomarkers and the mayco ent's probability of developing or having hepatocellular carcinoma. The LI-RADS / OPTN class ification of liver lesions has been adopted to standardize CT and MRI scan reporting in mayco ents at risk for hepatocellular carcinoma. The imaging criteria for "definite hepatocellular carcinoma" are concordant for the LI-RADS and OPTN systems. LI-RADS criteria and documentat ion are available online at www.acr.org/LI-RADS. This report utilizes LI-RADS version 2014. LI-RADS M = Probably malignant, not specific for HCC LI-RADS 5V = Imaging hepatocellular c arcinoma with tumor in vein LI-RADS 5 = Definitely hepatocellular carcinoma (concordant with OPTN 5) LI-RADS 4 = Probably hepatocellular carcinoma LI-RADS 3 = Intermediate probability for hepatocellular carcinoma LI-RADS 2 = Probably benign LI-RADS 1 = Definitely benign A p reliminary report was sent by [employer] on 09/06/2015 at 7:03 PM with no significant di screpancy. Dictated and Signed by: Austin Crane MD Electronically signed: 09/07/2015 11:00 AM ASSESSMENT and PLAN: Active Hospital Problems Diagnosis Anemia Hepatic encephalopathy Ascites due to alcoholic cirrhosis Alcohol dependence with intoxication with complication Hyponatremia Resolved Hospital Problems Diagnosis Date Noted Date Resolved No resolved problems to display. 1. Hepatic encephalopathy 2. Cirrohosis 3. Liver mass - pending biospy 4. Bloody ascites - s/p paracentesis, with concern for hemorrhagic hepatocellular carcinoma 5. History of alcohol abuse, with history of seizure Disposition : TBD Prophylaxis : SCD's while in bed Current Facility-Administered Medications: carvedilol 12.5 mg Oral BID WC cefTRIAXone (ROCEPHIN) IV 2 g Intravenous Daily furosemide 40 mg Oral Daily lactulose 30 mL Oral BID levETIRAcetam 500 mg Oral BID LORazepam 1 mg Oral Q4H PRN ondansetron 4 mg Intravenous Q8H PRN pantoprazole 40 mg Oral BID AC sodium chloride 0.9% Intravenous Continuous spironolactone 100 mg Oral BID Total time of approximately 26 minutes was spent with the patient and/or patient's family, and/or on the patient's floor/unit, of which more than 50% was spent counseling and/or coord ination the patient's care as outlined above. Jose Carlos Albert 09/07/2015 17:[address] [facility] Portions of this chart may have been created with [employer] voice recognition software. Occasi onal wrong-word or sound-alike substitutions may have occurred due to the inherent gallardo itations of voice recognition software. Please read the chart carefully and recognize, using context, where these substitutions have occurred arneel, Grant Pardo MD - 09/06/2015 2:33 PM PDT [facility] Hospitalist Progress Note Shaila Son is a 45 y.o. female ASSESSMENT and PLAN: 1. Painful ascites with peritoneal fluid worrisome for infection The patient's peritoneal fluid is still no growth though she did receive 1 dose of ceftriax one prior to having her culture. Fluid does not have gross pyuria nor was there hypoglycemi a area and as such I'm going to convert her from ceftriaxone to oral cefpodoxime 200 mg mara y which she had been taking prior to becoming noncompliant. CT imaging with contrast will b e obtained today after receiving blood overnight to look for a neoplastic process given that both taps were grossly hemorrhagic. Her initial cytology on the first tap was negative wit h the second cytology pending. 2. History of portal hypertensive gastropathy Patient is Hemoccult negative. We'll continue her on Protonix twice daily. Blood pressure s been somewhat low and thus were going to reduce carvedilol to 12.5 mg twice daily. 3. History of encephalopathy Patient is on lactulose 2 times daily with ammonia level of 38 yesterday. 4. Alcohol withdrawal No significant alcohol withdrawal this admission suspicious for only moderate alcohol consu mption which patient reports (3 16 ounce beers per day). Patient in the past has had alcoho l withdrawal seizures and on admission was placed on Her fiber milligrams twice daily which we'll continue for an additional 1 week then discontinue. 5. Anemia Thus far patient's blood work suggests this is hypoproliferative. Without bleeding noted t his admission the patient received 1 unit of blood overnight with her hematocrit increasing to 28. We'll not give a second unit with this being near her baseline by report. 6. Hyponatremia Improved with free water restriction and alcohol avoidance. 7. History of alcohol withdrawal seizures Patient without significant withdrawal this admission suggesting she was not actively drink ing in excess on the time of admission. She understands her need for complete absence relat carmela to her liver disease. At this point after discussion with the care managers I do believ e it is reasonable to give short-term seizure prophylaxis with Keppra following discharge bu t would not recommend long-term therapy noting at the time of discharge from [facility] she was gi shawn 5 additional days of valproic acid. Addendum: [address] suggests a right lobe tumor which was not seen on contrast CT of the abdomen and pelvis in March 2015. These 2 CTs have not been read in comparison noting no comment ab out the presence or absence from the 03/2015 study. Reviewed the case with the on-call radi ologist who did not have a chance to review films but certainly if this lesion is new then a n MRI will likely not add benefit but the patient will need to go to a liver biopsy if a def initive diagnosis is desired by the patient. I will review the CT findings with her this ev ening and then the decision about CT biopsy can be made tomorrow after review with the overr ding radiologist's here especially in comparison with a 03/2015 study. Will make patient nothing by mouth starting at [address] biopsy for MR imaging can be obtained. We'll repeat the patient's PT/INR PTT in the a.m. in addition to routine blood work. SUBJECTIVE: Patient overall improved in general status with more periods of being alert and ambulating within her room. She denies shortness of breath or significant increasing abdominal pain. She does have some chronic arthritic discomfort in her hips. VITALS: Temp: 37.4 C (99.3 F), Pulse: 78, Resp: 16, BP: 112/58 mmHg, SpO2 100 % on room air at flow rate L/min Temp Min: 36.8 C (98.2 F) Max: 37.6 C (99.7 F) Weight: 88.4 kg (194 lb 14.2 oz) No intake or output data in the 24 hours ending 05/30/16 1433 PHYSICAL EXAM: Cardiovascular: Regular rate and rhythm Respiratory: Clear bilaterally Abdomen: Slight increase in abdominal distention following a total of proximal 11 L remov ed this admission. Otherwise no tenderness palpation. Bowel sounds normoactive. Extremities: 1+ edema on the right and Tr. on the left. DIAGNOSTIC STUDIES: Available data and images were reviewed personally. Significant results and findings are a ddressed here or in the Assessment and Plan. Lab Results Component Value Date HGB 9.1* 09/06/2015 HCT 28.0* 09/06/2015 PLT 156 09/06/2015 WBC 5.8 09/06/2015 Lab Results Component Value Date NA 129* 09/06/2015 K 3.6 09/06/2015 CL 103 09/06/2015 CO2 22* 09/06/2015 CREA 0.59* 09/06/2015 BUN 7 09/06/2015 MG 1.3* 09/04/2015 BNP 54 03/17/2015 No results found for: POCGLU No results found for: POCGLU No results found. Total time of approximately 25 minutes was spent with the patient and/or patient's family, and/or on the patient's floor/unit, of which more than 50% was spent counseling and/or coord ination the patient's care as outlined above. Grant Lomas 09/06/2015 14:[address] [facility] Portions of this chart may have been created with [employer] voice recognition software. Occasi onal wrong-word or sound-alike substitutions may have occurred due to the inherent gallardo itations of voice recognition software. Please read the chart carefully and recognize, using context, where these substitutions have occurred arGrant shaikh MD - 0 09/05/2015 2:46 PM PDT [facility] Hospitalist Progress Note Shaila Son is a 45 y.o. female ASSESSMENT and PLAN: 1. Painful ascites with peritoneal fluid worrisome for infection Abdomen remains benign and cultures remained negative for infection on ceftriaxone. I disc ussed with the patient the findings of her pleural fluid in addition to the cytology report and given that both pleural fluid aspirates were hemorrhagic recommending that she undergo a three-phase CT of her abdomen to look at her liver and for other neoplastic processes such as ovaries etc. He has received 11 L paracentesis and as such I do want to volume dental detail representative someone in with her crit of 22 without active bleeding I'm going to give a unit of blood laura griffin and potentially a second unit tomorrow a.m. ending on her response to transfusion. T his will volume dental detail representative and hopefully improve her functional status in terms of activity. Will proceed with a three-phase CT tomorrow for renal function is normal. 2. History of portal hypertensive gastropathy Patient is Hemoccult negative. We'll continue her on Protonix twice daily. Carvedilol 18. 75 mg twice daily continues to see her blood pressure does with paracentesis before increasi ng the dose. 3. History of encephalopathy Patient is on lactulose 2times daily with improving ammonia 4. Alcohol withdrawal No evidence of alcohol withdrawal on day 4. CIWA has been discontinued. 5. Anemia Thus far patient's blood work suggests this is hypoproliferative. We'll give 1 unit of blo od tonight and then consider a second unit tomorrow depending on her response to the initial transfusion.. 6. Hyponatremia Improving with free water restriction and alcohol avoidance. SUBJECTIVE: Patient reports improved pain post paracentesis. She remains significantly immobile. VITALS: I/O's 640 cc in, 650 cc out without stool reported Temp 36.8 (9... 36.8 (9... Temp Heart Rate 90 82 76 Heart Rate BP 106/55 94/53 102/53 BP MAP cuff 69 MAP cuff RR 18 18 RR SpO2 100 95 96 SpO2 MEWS Total Score 1 1 1 PHYSICAL EXAM: Cardiovascular: Regular rate and rhythm Respiratory: Clear bilaterally Abdomen: Soft with minimal evidence of ascites. No pain to palpation. Bowel sounds normo active Extremities: 2+ edema on the right and 1+ on the left. DIAGNOSTIC STUDIES: Available data and images were reviewed personally. Significant results and findings are a ddressed here or in the Assessment and Plan. Results for SHAILA SON ( ) as of 09/06/2015 14:34 Ref. Range 09/05/2015 04:49 NA Latest Ref Range: 136-149 mmol/L 131 (L) K Latest Ref Range: 3.5-5.1 mmol/L 3.6 Chloride Latest Ref Range: 98-109 mmol/L 103 Carbon dioxide Latest Ref Range: 24-31 mmol/L 22 (L) ANION GAP Latest Ref Range: 3-16 mmol/L 6 GLUCOSE Latest Ref Range: 70-109 mg/dL 94 BUN Latest Ref Range: 7-18 mg/dL 5 (L) BUN/CREA Unknown 6.9 Creatinine Latest Ref Range: 0.60-1.30 mg/dL 0.72 EGFR IF NOT Latest Ref Range: >=60 mL/min/1.73m2 >60 Calcium Latest Ref Range: 8.3-10.5 mg/dL 7.3 (L) Ammonia Latest Ref Range: 11-35 umol/L 38 (H) Ref. Range 09/05/2015 04:49 WBC Latest Ref Range: 4.0-11.0 K/uL 4.5 RBC: Latest Ref Range: 3.70-5.20 M/uL 2.44 (L) Hgb Latest Ref Range: 11.5-16.0 g/dL 7.4 (LL) Hct, Final Latest Ref Range: 34.0-47.0 % 22.7 (L) MCV Latest Ref Range: 83.0-101.0 fL 93.2 MCH Latest Ref Range: 28.0-35.0 pg 30.2 MCHC Latest Ref Range: 32.0-36.0 g/dL 32.4 RDW-CV Latest Ref Range: <15.0 % 17.3 (H) Platelet Count Latest Ref Range: 140-440 K/uL 133 (L) MPV Latest Units: fL 7.6 Absolute Neutrophils Latest Ref Range: 1.80-8.50 K/uL 2.60 Absolute Lymphocytes Latest Ref Range: 0.60-3.20 K/uL 0.80 Absolute Monocytes Latest Ref Range: 0.00-1.00 K/uL 0.80 Absolute Eosinophils Latest Ref Range: 0.00-0.40 K/uL 0.30 Absolute Basophils Latest Ref Range: 0.00-0.10 K/uL 0.00 % Neutrophils Latest Ref Range: 45.0-82.0 % 57.0 % Lymphocytes Latest Ref Range: 20.0-45.0 % 16.7 (L) % Monocytes Latest Ref Range: 4.0-12.0 % 18.3 (H) % Eosinophils Latest Ref Range: 0.0-5.0 % 7.1 (H) % Basophils Latest Ref Range: 0.0-1.0 % 0.9 No results found for: POCGLU No results found for: POCGLU No results found. Total time of approximately 25 minutes was spent with the patient and/or patient's family, and/or on the patient's floor/unit, of which more than 50% was spent counseling and/or coord ination the patient's care as outlined above. Grant Lomas 09/06/2015 14:[address] [facility] Portions of this chart may have been created with [employer] voice recognition software. Occasi onal wrong-word or sound-alike substitutions may have occurred due to the inherent gallardo itations of voice recognition software. Please read the chart carefully and recognize, using context, where these substitutions have occurred arker, Grant Pardo MD - 0 09/04/2015 2:57 PM PDT [facility] Hospitalist Progress Note Shaila Son is a 45 y.o. female ASSESSMENT and PLAN: 1. Painful ascites with peritoneal fluid worrisome for infection Patient status post 6 L paracentesis yesterday. Thus far she is tolerated with respect to blood pressure and renal function and with respect to potential for reaccumulation today we' ll increase spironolactone to 100 mg twice daily. Patient remains on ceftriaxone with negat carmela cultures thus far. 2. History of portal hypertensive gastropathy Patient is Hemoccult negative. We'll continue her on Protonix twice daily. Carvedilol 12. 5 mg twice daily is currently being tolerated but with relative hypertension we'll increase to 18.75 mg twice daily. 3. History of encephalopathy Patient is on lactulose 3 times daily with ammonia reduce to 38. We'll reduce lactulose to twice a day. 4. Alcohol withdrawal Patient without significant withdrawal and thus we'll discontinue CIWA now day 3 5. Anemia Thus far patient's blood work suggests this is hypoproliferative. Currently will not consi fausto transfusion noting improvement in blood count this a.m. 6. Hyponatremia Improving with free water restriction and alcohol avoidance. SUBJECTIVE: Patient reports improved pain post paracentesis. She still is immobile secondary to the am ount of pleural fluid present. VITALS: I/O's 1100 cc in, 7525 out(includes 6 liter paracentesis) Temp 38 (100... 37.4 (9... 36 (96.8) 36.2 (9... 37.2 (99) Temp Heart Rate 85 89 Heart Rate BP 110/64 141/88 100/53 BP MAP cuff 77 104 MAP cuff RR 21 18 RR SpO2 97 97 SpO2 MEWS Total Score 0 0 0 2 2 MEWS Total PHYSICAL EXAM: Cardiovascular: Regular rate and rhythm Respiratory: Clear bilaterally Abdomen: Post-11 L paracentesis the patient has softer belly without significant ascites present. Bowel sounds are present. Currently no peritoneal signs. Extremities: 2+ edema on the right and 1+ on the left. DIAGNOSTIC STUDIES: Available data and images were reviewed personally. Significant results and findings are a ddressed here or in the Assessment and Plan. Results for SHAILA SON ( ) as of 09/06/2015 14:34 Ref. Range 09/04/2015 04:28 NA Latest Ref Range: 136-149 mmol/L 130 (L) K Latest Ref Range: 3.5-5.1 mmol/L 3.7 Chloride Latest Ref Range: 98-109 mmol/L 102 Carbon dioxide Latest Ref Range: 24-31 mmol/L 22 (L) ANION GAP Latest Ref Range: 3-16 mmol/L 6 GLUCOSE Latest Ref Range: 70-109 mg/dL 95 BUN Latest Ref Range: 7-18 mg/dL 4 (L) BUN/CREA Unknown 7.4 Creatinine Latest Ref Range: 0.60-1.30 mg/dL 0.54 (L) ALBUMIN Latest Ref Range: 3.2-5.0 g/dL 1.7 (L) Albumin/Globulin ratio Latest Ref Range: 0.8-2.0 0.5 (L) Total protein Latest Ref Range: 6.0-7.8 g/dL 5.1 (L) EGFR IF NOT Latest Ref Range: >=60 mL/min/1.73m2 >60 Calcium Latest Ref Range: 8.3-10.5 mg/dL 7.3 (L) MG Latest Ref Range: 1.8-2.5 mg/dL 1.3 (L) ALK PHOS Latest Ref Range: 40-110 U/L 89 ALT (SGPT) (REF) Latest Ref Range: 6-45 U/L 9 AST (SGOT) (REF) Latest Ref Range: 10-42 U/L 32 BILIRUBIN TOTAL Latest Ref Range: 0.1-1.5 mg/dL 0.9 GLOBULIN Latest Ref Range: 2.1-3.8 g/dL 3.4 Ammonia Latest Ref Range: 11-35 umol/L 58 (H) Results for SHAILA SON ( ) as of 09/06/2015 14:34 Ref. Range 09/04/2015 04:28 WBC Latest Ref Range: 4.0-11.0 K/uL 3.4 (L) RBC: Latest Ref Range: 3.70-5.20 M/uL 2.43 (L) Hgb Latest Ref Range: 11.5-16.0 g/dL 7.4 (LL) Hct, Final Latest Ref Range: 34.0-47.0 % 22.5 (L) MCV Latest Ref Range: 83.0-101.0 fL 92.8 MCH Latest Ref Range: 28.0-35.0 pg 30.4 MCHC Latest Ref Range: 32.0-36.0 g/dL 32.8 RDW-CV Latest Ref Range: <15.0 % 17.5 (H) Platelet Count Latest Ref Range: 140-440 K/uL 120 (L) MPV Latest Units: fL 7.6 Absolute Neutrophils Latest Ref Range: 1.80-8.50 K/uL 1.90 Absolute Lymphocytes Latest Ref Range: 0.60-3.20 K/uL 0.60 Absolute Monocytes Latest Ref Range: 0.00-1.00 K/uL 0.60 Absolute Eosinophils Latest Ref Range: 0.00-0.40 K/uL 0.30 Absolute Basophils Latest Ref Range: 0.00-0.10 K/uL 0.00 % Neutrophils Latest Ref Range: 45.0-82.0 % 55.7 % Lymphocytes Latest Ref Range: 20.0-45.0 % 17.9 (L) % Monocytes Latest Ref Range: 4.0-12.0 % 16.6 (H) % Eosinophils Latest Ref Range: 0.0-5.0 % 8.4 (H) % Basophils Latest Ref Range: 0.0-1.0 % 1.4 (H) No results found for: POCGLU No results found. Total time of approximately 25 minutes was spent with the patient and/or patient's family, and/or on the patient's floor/unit, of which more than 50% was spent counseling and/or coord ination the patient's care as outlined above. Grant Lomas 09/06/2015 14:[address] [facility] Portions of this chart may have been created with [employer] voice recognition software. Occasi onal wrong-word or sound-alike substitutions may have occurred due to the inherent gallardo itations of voice recognition software. Please read the chart carefully and recognize, using context, where these substitutions have occurred Ade Joaquin RN - 09/04/2015 11:17 AM [facility], all questions answered.Elec tronically signed by Teresa Taveras RN at 09/04/2015 11:17 AM Grant Mace MD - 09/03/2015 8:47 AM PDT [facility] Hospitalist Progress Note Shaila Son is a 45 y.o. female ASSESSMENT and PLAN: 1. Painful ascites with peritoneal fluid worrisome for infection Ascites less painful today but continues to have a small ooze from the puncture site with r espect to persistent fluid present. Plan will be to repeat her paracentesis today given goo d renal function, blood pressure and persistent discomfort. We'll send fluid for repeat cyt ology and repeat a AFB stain and smear. 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 Additionally there is certainly concern about this representing maligna ncy and if the fluid remains bloody in appearance than prior to discharge she will undergo C T imaging. 2. History of portal hypertensive gastropathy Patient is Hemoccult negative. We'll continue her on Protonix twice daily. Carvedilol 12. 5 mg twice daily continues to see her blood pressure does with paracentesis before increasin g the dose. 3. History of encephalopathy Patient is on lactulose 3 times daily. We will reduce dose to twice daily if stooling pers ists. 4. Alcohol withdrawal He continues on CIWA protocol and IV thiamine. Currently I were having very little issues relative topical withdrawal in discussion with the patient she was not drinking heavily prio r to admission. 5. Anemia Thus far patient's blood work suggests this is hypoproliferative. Currently will not consi fausto transfusion noting improvement in blood count this a.m. 6. Hyponatremia Improving with free water restriction and alcohol avoidance. SUBJECTIVE: Patient reports improved pain post paracentesis. She still is immobile secondary to the am ount of pleural fluid present. VITALS: Temp: 37.5 C (99.5 F), Pulse: 97, Resp: 17, BP: 112/69 mmHg, SpO2 96 % on room air at f low rate L/min Temp Min: 36 C (96.8 F) Max: 37.5 C (99.5 F) Weight: 88.4 kg (194 lb 14.2 oz) Intake/Output Summary (Last 24 hours) at 09/03/15 0848 Last data filed at 09/03/15 0329 Gross per 24 hour Intake 530 ml Output 7126 ml Net -6596 ml PHYSICAL EXAM: Cardiovascular: Regular rate and rhythm Respiratory: Clear bilaterally Abdomen: Post-5 L paracentesis the patient has softer belly still with significant ascite s present but less pain to palpation. Bowel sounds are present. Currently no peritoneal si gns. Extremities: 2+ edema on the right and 1+ on the left. DIAGNOSTIC STUDIES: Available data and images were reviewed personally. Significant results and findings are a ddressed here or in the Assessment and Plan. Lab Results Component Value Date HGB 7.1* 09/03/2015 HCT 22.0* 09/03/2015 PLT 117* 09/03/2015 WBC 4.2 09/03/2015 Lab Results Component Value Date NA 128* 09/03/2015 K 3.7 09/03/2015 CL 100 09/03/2015 CO2 22* 09/03/2015 CREA 0.61 09/03/2015 BUN 4* 09/03/2015 MG 1.7* 09/02/2015 BNP 54 03/17/2015 No results found for: POCGLU No results found for: POCGLU Xr Chest Ap Portable 09/02/2015 XR CHEST AP PORTABLE 09/01/2015 7:18 PM HISTORY: cirrhosis. COMPARISON: 015. Findings: The heart is mildly enlarged. Aorta is normal. Mediastinum is unremarkable. There is prominence of the pulmonary vasculature with cephalization. Moderate elevation of t he right hemidiaphragm is seen. Mild atelectasis is in the left lung base. There are no acut e osseous abnormalities. IMPRESSION - Prominence of central pulmonary vasculature with ceph alization that can be seen with fluid overload. Mild cardiomegaly. Dictated and Signed by: Austin Crane MD Electronically signed: 09/02/2015 10:02 AM Us Guided Paracentesis 09/02/2015 EXAM:US GUIDED PARACENTESIS dated09/01/2015 12:00 AM CLINICAL HISTORY: ascites COMPARISON: None PROCEDURE: After explaining the potential risks and benefits of the procedure to the patient, verbal and written consent were obtained. With the patient in th e supine position, ultrasound was utilized to identify a suitable site for paracentesis left lower quadrant. The overlying skin was prepped and draped in sterile fashion, and approxim ately 8 mL buffered 1% lidocaine utilized for local anesthesia. A small skin sam was made to accommodate the 8 [place]ic paracentesis trocar catheter, which were advanced into the perit callaway cavity without difficulty. There was immediate return of orange fluid. The catheter was advanced off of the trocar, and the trocar removed. 5000 mL fluid were subsequently asp irated without difficulty utilizing wall suction. The catheter was removed, and hemostasis assured with manual compression. The patient tolerated the procedure well, and there were n o immediate complications. The patient was transferred from the department in stable condit ion. Fluid was sent to lab as requested. IMPRESSION - ULTRASOUND-GUIDED THERAPEUTIC PA RACENTESIS PRODUCING 5000 CC FLUID DESCRIBED. Dictated and Signed by: Kendal Tanner Electronically signed: 09/02/2015 10:29 AM Total time of approximately 30 minutes was spent with the patient and/or patient's family, and/or on the patient's floor/unit, of which more than 50% was spent counseling and/or coord ination the patient's care as outlined above. Grant Lomas 09/03/2015 8:[address] [facility] Portions of this chart may have been created with [employer] voice recognition software. Occasi onal wrong-word or sound-alike substitutions may have occurred due to the inherent gallardo itations of voice recognition software. Please read the chart carefully and recognize, using context, where these substitutions have occurred Grant Mace MD - 0 09/02/2015 6:25 PM PDTHospitalist F/U Patient with persistent leak from paracentesis site post procedure today. This situation i s discussed with the patient and she is agreeable to a attempt at cutaneous suture closure. Discussed the potential risk of infection associated with this type of maneuver. Do believ e it is very low but the principal risk involved in the procedure. With verbal consent from the patient the area is prepped and draped in a sterile fashion and approximately 3 cc of 1 % lidocaine without epinephrine is used to infiltrate the area around the paracentesis site. A 3-0 Prolene suture is then placed to approximate the paracentesis hole that is actively leaking. A second suture is placed 3-4 mm medial and with this we have reasonable control o f the fluid with minimal leakage. A sterile pressure dressing is in placed over it and the patient is placed with her left upper quadrant up, right side down to help keep fluid pressu re from causing this to be persistently open.Electronically signed by Grant Lomas MD at 0 09/02/2015 6:29 PM Grant Mace MD - 09/02/2015 9:34 AM PDTFormatting of this note mi ght be different from the original. [facility] PMG Hospitalist Progress Note Shaila Son is a 45 y.o. female ASSESSMENT and PLAN: 1. Painful ascites with peritoneal fluid worrisome for infection She underwent paracentesis this a.m. with hemorrhagic cloudy fluid found with 5 L removed. At this point and then increase her ceftriaxone from 1 g daily to 2 g daily and await Gram stain results. A thorough history of TB treated at age 16 we'll ask infection control to ob tain records of treatment to document adequacy and pending this will obtain AFB stain and cu lture of the peritoneal fluid. Patient with 5 L removed still has a significant bout of flu id left and we'll see how she tolerates initial 5 L relative kidney function and consider elva gold off more fluid tomorrow for comfort. Patient's spironolactone was restarted last night and will reinstitute furosemide today. 2. History of portal hypertensive gastropathy Patient is Hemoccult negative. We'll continue her on Protonix twice daily. Carvedilol sta rted last night. 3. History of encephalopathy Patient is on lactulose 3 times daily. We will reduce dose to twice daily if stooling pers ists. 4. Alcohol withdrawal He continues on CIWA protocol and IV thiamine. We'll follow patient's by mouth intake and if he remains poor start IV fluids. 5. Anemia Thus far patient's blood work suggests this is hypoproliferative. Currently will not consi fausto transfusion noting improvement in blood count this a.m. 6. Hyponatremia Improving with free water restriction and alcohol avoidance. SUBJECTIVE: Patient reports improved pain post paracentesis. She otherwise denies uncontrolled off: St rahl symptoms at this time. She remains mildly tachycardic and hypertensive at his been off nadolol for a month with carvedilol reinitiated last night. VITALS: Temp: 37.1 C (98.8 F), Pulse: 109, Resp: 21, BP: (!) 161/105 mmHg, SpO2 94 % on room ai r at flow rate L/min Temp Min: 36.6 C (97.9 F) Max: 37.7 C (99.9 F) Weight: 88.4 kg (194 lb 14.2 oz) Intake/Output Summary (Last 24 hours) at 09/02/15 0945 Last data filed at 09/02/15 0500 Gross per 24 hour Intake 700 ml Output 1377 ml Net -677 ml PHYSICAL EXAM: Cardiovascular: Regular rate and rhythm Respiratory: Clear bilaterally Abdomen: Post-5 L paracentesis the patient has softer belly still with significant ascite s present but less pain to palpation. Bowel sounds are present. Currently no peritoneal si gns. Extremities: 3+ edema DIAGNOSTIC STUDIES: Available data and images were reviewed personally. Significant results and findings are a ddressed here or in the Assessment and Plan. Lab Results Component Value Date HGB 8.1* 09/02/2015 HCT 24.6* 09/02/2015 PLT 131* 09/02/2015 WBC 5.0 09/02/2015 Lab Results Component Value Date NA 129* 09/02/2015 K 3.5 09/02/2015 CL 99 09/02/2015 CO2 21* 09/02/2015 CREA 0.54* 09/02/2015 BUN 3* 09/02/2015 MG 1.7* 09/02/2015 BNP 54 03/17/2015 No results found for: POCGLU No results found for: POCGLU No results found. Total time of approximately 30 minutes was spent with the patient and/or patient's family, and/or on the patient's floor/unit, of which more than 50% was spent counseling and/or coord ination the patient's care as outlined above. Grant Lomas 09/02/2015 9:[address] [facility] Portions of this chart may have been created with [employer] voice recognition software. Occasi onal wrong-word or sound-alike substitutions may have occurred due to the inherent gallardo itations of voice recognition software. Please read the chart carefully and recognize, using context, where these substitutions have occurred documented in this [facility] H&P Notes Robel Taylor MD - 09/08/2015 11:59 AM PDT INTERIM HISTORY AND PHYSICAL UPDATE Pt. Name/Age/: Shaila Son 45 y.o. 1970 Date of admission: 09/01/2015 The current H&P was reviewed. The patient was reexamined. Airway and lung sounds are with in normal limits. Heart sounds are suggestive of flow murmur. Re-evaluation of the patient c onfirms the necessity for the scheduled procedure. No significant change has occurred in t he patient s condition since the H&P was completed less than 30 days ago. ASA 3 - A patient with severe systemic disease Mallampati Score III (base of uvula and soft palate) Electronically signed by: Robel Taylor MD, 09/08/2015 11:59 [facility] by Robel Taylor MD at 0 09/08/2015 12:00 PM PDTParker, Grant Pardo MD - 09/01/2015 6:43 PM PDTFormatting of this note mi ght be different from the original. Patient: Shaila Son : 1970: Age: 45 y.o. MedRec: [id number] Admission date: 09/01/2015 Hospital day #: 0 Physician author: Grant Lomas MD HISTORY AND PHYSICAL CHIEF COMPLAINT: Patient transferred to this facility from [facility] without emergency room rec ords or labs made available and the patient unable to tell me why she is at the hospital. I n nursing and off from the emergency room nurse to our ICU nurse they were advised her hemat ocrit is 22, sodium 125, and "too weak/unsafe to go home". HISTORY OF PRESENT ILLNESS: This is a 45 y.o. female with a history of stopping her medications approximately 1 month a go by her report. She cannot tell me the names of the medication but was on a liquid medici ne for memory with review of March 2015 record showing lactulose 3 times daily. At that time she had had by report portal hypertensive gastropathy, cirrhosis, and encephalopathy. She only knows about her abdominal fluid retention and otherwise denies ever having GI bleed ing albeit it appears to be documented previously. The patient currently denies having hist ory of recent fevers but when went to the emergency room because of generalized weakness by report. She also has had abdominal pain. Her medical history on review includes; a history of pulmonary tuberculosis treated at age 16 Portal vein thrombosis documented from 2010 to present Chronic anemia with a history of EGD in 2010 with portal hypertensive gastropathy History of 4 L paracentesis in 03/29/2015 at [facility] History of seizures at the patient's order from [facility] being divalproex DR 150 mg 3 times dee ly for 5 days to prevent seizures while not drinking PAST MEDICAL and SURGICAL HISTORY: Past Medical History Diagnosis Date Cirrhosis, alcoholic (HCC) Hypertension No past surgical history on file. FAMILY HISTORY: Agent likely encephalopathic and not able to give good history SOCIAL HISTORY: Patient history is unreliable. She reports initially that she drank up until a time she wa s in the clinic today so subsequently stating that she drank until midnight last night notin g her blood alcohol level in the emergency room today was 93. She denies a history of drug use but in her records from 03/2015 has a previous history of IV drug use. There is report of being hepatitis C negative as of 2010. REVIEW OF SYSTEMS: Record review of systems is thought to be unreliable but otherwise negative. HOME MEDICATIONS: None for the past month. The patient at the time of discharge 04/01/2015 from [facility] was tete ing Cefpodoxime 200 mg daily for prophylaxis Divalproex DR 250 mg 1 pill 3 times daily for 5 days to prevent seizures while not drinking Ferrous sulfate 325 mg daily Furosemide 40 mg daily Lactulose 30 mils 3 times daily Spironolactone 100 mg daily folic acid 1 mg daily Lorazepam 0.5 mg 4 times daily as needed Nadolol 20 mg daily Omeprazole 20 mg twice daily Vitamin B 100 mg daily ALLERGIES: Allergies Allergen Reactions Ciprofloxacin Anaphylaxis Sulfamethoxazole-Trimethoprim Anaphylaxis Ibuprofen Hives Pt also has liver failure VITAL SIGNS: Temp: 36.6 C (97.9 F), Pulse: 113, Resp: 20, BP: (!) 148/105 mmHg, SpO2 98 % on room ai r at flow rate L/min Temp Min: 36.6 C (97.9 F) Max: 36.6 C (97.9 F) Weight: 88.4 kg (194 lb 14.2 oz) PHYSICAL EXAMINATION: Constitutional Alert but relatively confused with tense edema both upper extremities and abdomen Eye Mild scleral icterus ENT Unremarkable oral ear and nose Neck No adenopathy, thyromegaly nor masses Lymph node exam Negative in the following areas: neck and epitrochlear Cardiac RRR with 1/6 systolic murmur at right upper sternal border with a relative hyperdynamic hea rt rate at 104th time of my assessment LE edema 3 plus and tense Lung Clear to auscultation, respiratory effort not labored Percussion not performed Abdomen Tense ascites with mild tenderness consistent with the degree of distention. Bowel sounds normoactive Psych Oriented to name DIAGNOSTIC STUDIES: No results for input(s): WBC, HGB, HCT, PLT, NEUPCT, MONPCT in the last 168 hours. Invalid input(s): EOSPCT, NEUABC No results for input(s): PROTIME, INR in the last 168 hours. No results for input(s): PTT in the last 168 hours. No results for input(s): GLU, NA, K, CL, CO2, ANIONGAP, BUN, CREA, GFRNONAA, CALCIUM, ALBUM IN, TOTALPROTEIN, BILITOT, ALKPHOS, ALT, AST in the last 168 hours. No results for input(s): BNP in the last 168 hours. No results for input(s): MG in the last 168 hours. No results for input(s): PHOS in the last 168 hours. No results for input(s): AMYLASE, LIPASE in the last 168 hours. No results for input(s): AMMONIA in the last 168 hours. No results for input(s): CKMB in the last 168 hours. Invalid input(s): TROPONINI, CKTOTAL No results for input(s): PHART, PO2ART, KCV5KKR, XPZ8UJR, BEART, [id number] in the last 168 h ours. Xray Results: No results found. ASSESSMENT: 1. Acute on chronic alcoholism with high risk for severe alcohol withdrawal Place the patient on CIWA protocol. Patient received 100 mg of thiamine before any IV flui ds and then daily thiamine/pyridoxine/folic acid. 2. Decompensated alcoholic cirrhosis Patient be started on lactulose with an ammonia level pending. Otherwise we'll plan parace ntesis tomorrow a.m. I'm going to start ceftriaxone prophylaxis for SBP. Need to see what h er labs show make a decision about the use of diuretics and IV fluids. Will obtain a viral hepatitis screen. 3. History of anemia We do not have any baseline labs for this patient. I'm going to type and cross her for 2 u nits obtain a CBC. Obtain stool Hemoccults. 4. Report of hyponatremia and other blood abnormalities We'll confirm with blood testing and that we have no labs and then initiate therapy for suc h. CBC, CMP, magnesium, ammonia level, PT/INR is ordered for admission in addition to chest x-ray. We'll obtain a urine. PLAN: I reviewed and summarized old records DVT Prophylaxis SCD's while in bed Code Status Full code CMS Documentation I expect this patient will be hospitalized for greater than 2-midnights and expect the post -hospital plan to be determined once additional information is obtained. Grant Lomas MD Electronically signed by: Grant Lomas MD 09/01/2015 18:43 [facility] Portions of this chart may have been created with [employer] voice recognition software. Occasi onal wrong-word or sound-alike substitutions may have occurred due to the inherent gallardo itations of voice recognition software. Please read the chart carefully and recognize, using context, where these substitutions have occurred documented in this enc ounter Miscellaneous Notes Plan of Care - Janeen Srivastava MSW - 09/10/2015 11:49 AM PDTPatient to transfer [facility]. This CM faxed over the SNF transfer orders, PASRR, and RXs. All other documentation is placed in manila folder and in ghost chart. This CM spoke with Irena who states that she will look over the orders and call this write r back with a molded goods spot picker time. Electronically signed by: HANNAH Contreras 09/10/2015 11:52 Spoke with Josephine who reported a molded goods spot picker time of 1300. This Cm let patient know and asked if she would like any family notified, she stated "they already know I'm going there". She did not have any further concerns noted. Electronically signed by: HANNAH Contreras 09/10/19 16 15:16 NF Lyndsay rice - Jose Carlos Albert MD - 09/10/2015 11:13 AM PDTFormatting of this note might be differe nt from the original. [facility]ILITY TRANSFER ORDERS Patient Name: Shaila Son Patient : 1970 Gender: female Date of Admission: 09/01/2015 Date of Discharge: 09/10/2015 Admitting Provider: Marialuisa Roman MD Discharging Provider: Jose Carlos Albert MD Consultants: none PCP: Juan Holguin [facility] transferring to: [facility] Provider after transfer: Per SNF CODE STATUS: [x] Attempt CPR [] Do not resuscitate If patient is pulseless and not breathing, RN/SENIOR BUYER PLANNER may pronounce . Advanced Directives included: [] POLST [] MOLST/MOST [] [employer] [place] ([place] [] Other: Code status discussed with: [] Patient [] Spouse/Family [] DPOA [] Other: Name of person discussed with: Date discussed: Isolation/Infection Precautions: [] None Height: Height: 170.2 cm (5' 7.01") Wt Readings from Last 3 Encounters: 09/04/15 73.6 kg (162 lb 4.1 oz) 03/17/15 63.504 kg (140 lb) Admitting Diagnosis: Patient Active Problem List Diagnosis Anemia Hepatic encephalopathy Ascites due to alcoholic cirrhosis Alcohol dependence with intoxication with complication Hyponatremia Allergies Allergen Reactions Ciprofloxacin Anaphylaxis Sulfamethoxazole-Trimethoprim Anaphylaxis Ibuprofen Hives Pt also has liver failure There is no immunization history on file for this patient. Diet: [] As tolerated HAIR MACHINE OPERATOR may upgrade or downgrade diet as condition Indicates. [] RN may downgrade diet as indicated. Type: [x] Continue current diet of: Diet and Supplements Diet Diet general; thin liquids allowed; 1800 ml fluid; Effective Now Number of Occurrences: Until Specified Order Comments: NPO after midnight for liver Bi-op Sunday09-08-15 Order Questions: Type Diet general Fluid consistency modifications thin liquids allowed Fluid volume restictions 1800 ml fluid [] Other: Consistency/Precautions: [] Whole [] Thin Liquids [] Cut-up [] [place] Thick [] Advanced Chopped [] Honey Thickened [] Chopped [] Advanced Ground [] 1:1 feedings [] Ground/Pureed [] Other: Tube Feedings: [] PEG [] GT [] JT [] NGT [] Formula type: (Payroll And Benefits Coordinator may change/substitute if indicated). [] Continuous Rate: ml/hr, infusing hrs/day [] Bolus feeds: ml every hours [] Additional water: ml every hours Respiratory: [] BiPAP at night & PRN SOB. Settings: O2 L bleed Dx: [] CPAP at night & PRN SOB. Settings: O2 L bleed Dx: [] Suction & Pulmonary toilet PRN secretion/sputum management. Dx: [] Incentive Spirometer QID and PRN while awake. Duration: Dx: [] Tracheostomy management per protocol [] Oxygen: Lpm NC/Trach [] Continuous [] NOC [] Humidified [] prn SaO2 < % [] prn SOB/dyspnea Dx: [] Other: Dx: Bladder: [] Follow nursing protocol for recent jackson removal [] Jackson catheter managment per nursing protocol - Indication: [] Permanent [] Temporary [] Remove jackson catheter on and follow nursing protocol for recent jackson remova l. [] Straight catheter every hour(s) and record amount drain Dx: [] Bladder scan every hour(s) and straight cath for > ml Dx: [] Suprapubic catheter management Dx: Other Lines, Tubes and Drains: (to be managed by nursing protocol) [] IV access and location: [] Permanent [] Temporary: Instructions/indications for removal of IV access: [] May use Alteplase per protocol PRN occluded central venous catheter [] Colostomy [] Ileostomy [] Urostomy [] Nephrostomy [] Dialysis Access - Type & Location: [] Drains - Type & Location: [] Other: Activity/Therapies: []WBAT [] Weight Bearing Restricted (specify limb(s)): [x] PT Evaluation & Management for: _strenth and balance [x] OT Evaluation & Management for: [] HAIR MACHINE OPERATOR Evaluation &Management for: [] Other: Wound/Skin Care: [] Follow current recommendations of the wound team for treatment. [] Follow standard nursing protocols for wound care. [] Wound Vac management per nursing protocol. Indication: Location: Settings: Change frequency: & prn [] Other: Labs/Imaging: [] PT/INR: Frequency: Dx: Goal INR: Duration of therapy: [] Fingerstick glucose checks: Dx: DM [] Other: Test/Study Needed/Frequency Diagnosis/Indication Follow up appointments and consultations: Dr. Date/Time: Dr. Date/Time I have advised this patient that he/she not use tobacco products. TB screening: Upon admission the 1st and 2nd step TST will be done as per protocol if Resid ent has no history of TB or a past positive TST. Pharmacist may substitute equivalent Rx based on facility or insurance formulary as needed unless otherwise specified by physician. Please write "JERICA" (Dispense as written) if a medi cation should not be substituted. Please make sure to write a diagnosis for ALL medications continued on transfer. Antibioti cs require a stop date. If medications do not contain a SIG, make sure doses/routes and lula edule is included. Medication Orders New Medications Details Order Next Dose Due carvedilol 12.5 mg tablet Take 1 tablet by mouth 2 times daily (with breakfast & dinner). aka: COREG By: Jose Carlos Albert Quant: 60 tablet furosemide 40 mg tablet Take 1 tablet by mouth Daily. aka: LASIX By: Jose Carlos Albert Quant: 30 tablet lactulose 10 g/15 mL solution Take 30 mLs by mouth 2 times daily. By: Jose Carlos Albert Quant: 1892 mL levETIRAcetam 500 mg tablet Take 1 tablet by mouth 2 times daily. aka: KEPPRA By: Jose Carlos Albert Quant: 60 tablet LORazepam 1 mg tablet Take 1 tablet by mouth every 4 hours as needed. aka: ATIVAN By: Jose Carlos Albert Quant: 60 tablet oxyCODONE 5 mg tablet Take 2 tablets by mouth every 6 hours as needed for Pain. aka: ROXICODONE By: Jose Carlos Albert Quant: 30 tablet pantoprazole 40 mg tablet Take 1 tablet by mouth 2 times daily (before meals). aka: PROTONIX By: Jose Carlos Albert Quant: 30 tablet spironolactone 100 MG tablet Take 1 tablet by mouth 2 times daily. aka: ALDACTONE By: Jose Carlos Albert Quant: 30 tablet IJose Carlos MD, certify that post hospital detention care is medically nec essary on a continuing basis for any of the conditions for which he/she received care during this hospitalization. Check one: [x] Skilled [] Intermediate Additional Orders/Instructions: Physician's signature: 09/10/2015 11:[address] [facility] USE ONLY: [] Admitting orders verbally reviewed with Admitting Physician, modified where appropriate, and approved. Verbal Order from Date: Time: _ RN name: RN signature: [] Admitting orders reviewed, modified where appropriate, and approved. Physician's signature:____Jose Carlos Albert Date: _Time: lan of Care - [facility] Steve panda RN - 09/10/2015 8:06 AM PDTProblem: Patient Care Overview (Adult) Goal: Care Team Goals & Evaluation PROBLEM-RELATED GOALS: 1.) Shaila be free of injury related to seizure activity, as evidenced by, no further oral/li p swelling, bleeding and lacerations, no further falls, sustained head injuries or aspiratio ns of food or fluids by 09/06/2015. 2.) Shaila s pain will be managed to <4/10 by 09/06/2015. 3.) Shaila s electrolyte levels will improve by 09/06/2015. 4.) Shaila will remain alert and oriented through 09/06/2015. 5.) Shaila will be free of falls by 09/06/2015. 6.) Shaila will experience a decrease in ascites formation and accumulation as evidenced by d ecreased abdominal girth by 09/06/2015.. 7. Pt will be SBA for ADLs & functional mobility w/i room by 09/07/15. 8. Shaila will be able to mobilize independently with use of FWW as needed for safety with ga it by 09/07/15. STRATEGY TO ACHIEVE GOALS: 1.) Maintain seizure precautions. Administer anti-seizure medications per order. 2.) Monitor for seizure activity, place seizure pads to bedrails for safety. 3. Perform CIWA evaluation every 4 hours & administer Lorazepam PRN as ordered. 3.) Assess pain level at frequent intervals. Administer PRN medications as appropriate. Enc ourage repositioning as tolerated by patient. 4.) Monitor lab values, diagnostic testing and vital signs. Notify providers of pertinent c hanges. Administer electrolyte replacement as ordered. 5.) Use non-skid footwear when getting out of bed and ambulating. Call staff when getting o ut of bed. Use assistive device as needed. - Participation in therapy sessions. RESTRAINT-RELATED GOALS: STRATEGIES TO ACHIEVE RESTRAINT GOALS: / Outcome: Adequate for Discharge Date Met: 09/10/15 Goal Evaluation: No evidence of seizure activity this shift. No falls, no evidence of skin breakdown. Dressi ngs to abdominal punctures r/t previous paracentesis and liver biopsy are clean, dry and int act. Patient alert and orientated this shift. No complaints of pain. Calls approprietly. Joan ctronically signed by: Steve Lozano RN 09/10/2015 8:06 lan of Care - Campbell Lewis RN - 09/09/2015 4:44 PM PDTProblem: Patient Care Overview (Adult) Goal: Care Team Goals & Evaluation PROBLEM-RELATED GOALS: 1.) Shaila be free of injury related to seizure activity, as evidenced by, no further oral/li p swelling, bleeding and lacerations, no further falls, sustained head injuries or aspiratio ns of food or fluids by 09/06/2015. 2.) Shaila s pain will be managed to <4/10 by 09/06/2015. 3.) Shaila s electrolyte levels will improve by 09/06/2015. 4.) Shaila will remain alert and oriented through 09/06/2015. 5.) Shaila will be free of falls by 09/06/2015. 6.) Shaila will experience a decrease in ascites formation and accumulation as evidenced by d ecreased abdominal girth by 09/06/2015.. 7. Pt will be SBA for ADLs & functional mobility w/i room by 09/07/15. 8. Shaila will be able to mobilize independently with use of FWW as needed for safety with ga it by 09/07/15. STRATEGY TO ACHIEVE GOALS: 1.) Maintain seizure precautions. Administer anti-seizure medications per order. 2.) Monitor for seizure activity, place seizure pads to bedrails for safety. 3. Perform CIWA evaluation every 4 hours & administer Lorazepam PRN as ordered. 3.) Assess pain level at frequent intervals. Administer PRN medications as appropriate. Enc ourage repositioning as tolerated by patient. 4.) Monitor lab values, diagnostic testing and vital signs. Notify providers of pertinent c hanges. Administer electrolyte replacement as ordered. 5.) Use non-skid footwear when getting out of bed and ambulating. Call staff when getting o ut of bed. Use assistive device as needed. - Participation in therapy sessions. RESTRAINT-RELATED GOALS: STRATEGIES TO ACHIEVE RESTRAINT GOALS: / Outcome: Improving Goal Evaluation: Ambulating independently in room and in the halls with standby supervision. Wears non-skid footwear when out of bed. Up with aide for shower. Denies pain throughout shift. No seizures . Magnesium critically low at 1.0, Dr. Albert ordered Mag IVPB 4g. Started on PO K+ supple ment for K+ of 3.3. Anxious for discharge. Participated with PT. Plan: d/c to SNF tomorrow p er case management. lan of Care - Co Lachelle gray, PT - 09/09/2015 2:30 PM PDTProblem: Patient Care Overview (Adult) Goal: Care Team Goals & Evaluation PROBLEM-RELATED GOALS: 1.) Shaila be free of injury related to seizure activity, as evidenced by, no further oral/li p swelling, bleeding and lacerations, no further falls, sustained head injuries or aspiratio ns of food or fluids by 09/06/2015. 2.) Shaila s pain will be managed to <4/10 by 09/06/2015. 3.) Shaila s electrolyte levels will improve by 09/06/2015. 4.) Shaila will remain alert and oriented through 09/06/2015. 5.) Shaila will be free of falls by 09/06/2015. 6.) Shaila will experience a decrease in ascites formation and accumulation as evidenced by d ecreased abdominal girth by 09/06/2015.. 7. Pt will be SBA for ADLs & functional mobility w/i room by 09/07/15. 8. Shaila will be able to mobilize independently with use of FWW as needed for safety with ga it by 09/07/15. STRATEGY TO ACHIEVE GOALS: 1.) Maintain seizure precautions. Administer anti-seizure medications per order. 2.) Monitor for seizure activity, place seizure pads to bedrails for safety. 3. Perform CIWA evaluation every 4 hours & administer Lorazepam PRN as ordered. 3.) Assess pain level at frequent intervals. Administer PRN medications as appropriate. Enc ourage repositioning as tolerated by patient. 4.) Monitor lab values, diagnostic testing and vital signs. Notify providers of pertinent c hanges. Administer electrolyte replacement as ordered. 5.) Use non-skid footwear when getting out of bed and ambulating. Call staff when getting o ut of bed. Use assistive device as needed. - Participation in therapy sessions. RESTRAINT-RELATED GOALS: STRATEGIES TO ACHIEVE RESTRAINT GOALS: / Outcome: Improving Physical Therapy Daily Treatment Note Patient Information Patient Name: Shaila Son Date of : 1970 Age: 45 y.o. Precautions/Limitations: falls, seizures Left Upper Extremity Weight-Bearing: full weight-bearing Right Upper Extremity Weight-Bearing: full weight-bearing Left Lower Extremity Weight-Bearing: full weight-bearing Right Lower Extremity Weight-Bearing: full weight-bearing History of Presenting Problem: Transfer from [facility], no records or labs available. P t unable to provide history. Reportedly stopped medications x 1 month ago. Hx 4L paracente sis @ [facility] 03/23; hx seizures, chronic anemia. Now- acute on chronic alcoholism w/ high ris k for severe ETOH withdrawal; decompensated alcoholic cirrhosis. Underwent paracentesis 09/01 w/ 5L, 09/02 w/ 6L. PT Diagnosis: Generalized weakness and deconditioning, mild balance deficits, difficulty w ith walking Start Time: 1400 Stop time: 1430 Time Calculation: 30 minutes Missed Treatment Time: minutes Total Treatment Time: 30 minutes TimedTreatment Code Minutes: 30 minutes Subjective: Pt agreeable to PT Objective: Treatment Provided: Pt received supine in bed w/ IV running. Pt participated in bed mob, tr ansfers and gait (see below for details). Pt returned to supine position and left w/ all nee ds w/in reach. Education: Safety w/ mobility Patient Status/Goals: Reflects last filed data of patient status; may be from multiple contributors. Gait occasional lob and stagger w/ cuing for technique w/ IV pole Level of Dunbar : contact guard assist, verbal cues required Assistive Device: (IV stand) Distance (feet): 300 Transfers Using IV stand for support Sit-Stand, Level of Dunbar: supervision required Stand-Sit, Level of Dunbar: supervision required [id number], Assistive Device: none Safety Issues: balance decreased during turns, step length decreased, loses balance backwar d Impairments: impaired balance, strength decreased, decreased flexibility, postural control impaired, muscle tone abnormal Bed Mobility Assistive Device: bed rails Supine to Sit, Level of Dunbar: minimum assist (75% patient effort) Sit to Supine, Level of Dunbar: modified independence Impairments: impaired balance, strength decreased Balance Sitting Balance: Static: good balance Sitting Balance: Dynamic: good balance Standing Balance: Static: fair balance Standing Balance: Dynamic: (fair (-) without UE support; fair with UE support on FWW) ROM L LE ROM: L ankle only dorsiflexes to neutral Strength B Les grossly 2+ at hips aand 3+ to 4 in lower legs and ankles STG GOALS Bed Mobility Goal, Activity Type: supine to sit/sit to supine Dunbar Level: independent Assistive Device: none Time to Achieve: 5 - 7 days Goal Status: progressing toward goal, revised Transfer Training Goal, Activity Type: sit to stand/stand to sit Dunbar Level: modified independence Assistive Device: 2 wheeled walker (FWW) Time to Achieve: 5 - 7 days Goal Status: progressing toward goal, revised Gait Training Goal, Dunbar Level: modified independence Assistive Device: 2 wheeled walker (FWW) Distance: 350 ft Time to Achieve: 5 - 7 days Goal Status: progressing toward goal, revised Assessment: Pt demonstrating progress toward functional goals. She is able to perform bed m ob, transfers and gait w/o physical assist, only light CGA for occasional instability. Pt ut ilized the IV stand for support however it appears she would benefit from use of a FWW at th is time d/t continued instability despite using the IV stand and difficulty w/ managing the stand safely. Pt will benefit from continued PT interventions to promote increased independe nce w/ functional activities necessary for safe home discharge. Pt will likely require short term SNF rehab placement prior to home discharge. Physical Therapy Anticipated Discharge Needs are: Pt continues to require PT services, disposition TBD. Plan for next treatment: Daily, LKC, 1P, IV pole, progressive safey and independence w/ fun ctional mobility and activity tolerance Electronically signed by: Lachelle Davis, PT, 09/09/2015 14:31 lan of Care - Nisa Zepeda RN - 09/09/2015 5:11 AM PDTProblem: Patient Care Overview (Adult) Goal: Care Team Goals & Evaluation PROBLEM-RELATED GOALS: 1.) Shaila be free of injury related to seizure activity, as evidenced by, no further oral/li p swelling, bleeding and lacerations, no further falls, sustained head injuries or aspiratio ns of food or fluids by 09/06/2015. 2.) Shaila s pain will be managed to <4/10 by 09/06/2015. 3.) Shaila s electrolyte levels will improve by 09/06/2015. 4.) Shaila will remain alert and oriented through 09/06/2015. 5.) Shaila will be free of falls by 09/06/2015. 6.) Shaila will experience a decrease in ascites formation and accumulation as evidenced by d ecreased abdominal girth by 09/06/2015.. 7. Pt will be SBA for ADLs & functional mobility w/i room by 09/07/15. 8. Shaila will be able to mobilize independently with use of FWW as needed for safety with ga it by 09/07/15. STRATEGY TO ACHIEVE GOALS: 1.) Maintain seizure precautions. Administer anti-seizure medications per order. 2.) Monitor for seizure activity, place seizure pads to bedrails for safety. 3. Perform CIWA evaluation every 4 hours & administer Lorazepam PRN as ordered. 3.) Assess pain level at frequent intervals. Administer PRN medications as appropriate. Enc ourage repositioning as tolerated by patient. 4.) Monitor lab values, diagnostic testing and vital signs. Notify providers of pertinent c hanges. Administer electrolyte replacement as ordered. 5.) Use non-skid footwear when getting out of bed and ambulating. Call staff when getting o ut of bed. Use assistive device as needed. - Participation in therapy sessions. RESTRAINT-RELATED GOALS: STRATEGIES TO ACHIEVE RESTRAINT GOALS: / Outcome: Improving Goal Evaluation: Pt. denied pain t/o the night. Dressing changed on right upper abdomen from liver biopsy. Moderate amount of serosanguinous (more serous) fluid leaking from dressing. CIWA-0. Indepen dent in room. Remained free from falls. Calls appropriately. Sleeping t/o the night in betwe en cares. Moderate amount of liquid stool this am. lan of Care - Campbell Ron RN - 09/08/2015 4:54 PM PDTProblem: Patient Care Overview (Adult) Goal: Care Team Goals & Evaluation PROBLEM-RELATED GOALS: 1.) Shaila be free of injury related to seizure activity, as evidenced by, no further oral/li p swelling, bleeding and lacerations, no further falls, sustained head injuries or aspiratio ns of food or fluids by 09/06/2015. 2.) Shaila s pain will be managed to <4/10 by 09/06/2015. 3.) Shaila s electrolyte levels will improve by 09/06/2015. 4.) Shaila will remain alert and oriented through 09/06/2015. 5.) Shaila will be free of falls by 09/06/2015. 6.) Shaila will experience a decrease in ascites formation and accumulation as evidenced by d ecreased abdominal girth by 09/06/2015.. 7. Pt will be SBA for ADLs & functional mobility w/i room by 09/07/15. 8. Shaila will be able to mobilize independently with use of FWW as needed for safety with ga it by 09/07/15. STRATEGY TO ACHIEVE GOALS: 1.) Maintain seizure precautions. Administer anti-seizure medications per order. 2.) Monitor for seizure activity, place seizure pads to bedrails for safety. 3. Perform CIWA evaluation every 4 hours & administer Lorazepam PRN as ordered. 3.) Assess pain level at frequent intervals. Administer PRN medications as appropriate. Enc ourage repositioning as tolerated by patient. 4.) Monitor lab values, diagnostic testing and vital signs. Notify providers of pertinent c hanges. Administer electrolyte replacement as ordered. 5.) Use non-skid footwear when getting out of bed and ambulating. Call staff when getting o ut of bed. Use assistive device as needed. - Participation in therapy sessions. RESTRAINT-RELATED GOALS: STRATEGIES TO ACHIEVE RESTRAINT GOALS: / Outcome: Improving Goal Evaluation: Pt ambulating in room independently. Liver biopsy done today. Dressings to abd clean, dry a nd intact. No seizures this shift. CIWA d/c'd. Medicated for pain x3. Continues on fluid res triction and IV fluids. Expressed multiple times the desire to go home. She is unclear what the plan is from here. Explained she needed to be stable before she can be discharged. Parti cipated with OT, unable to participate with PT due to procedure. lan of Care - Co Lachelle gray PT - 09/08/2015 1:21 PM PDTProblem: Patient Care Overview (Adult) Goal: Care Team Goals & Evaluation PROBLEM-RELATED GOALS: 1.) Shaila be free of injury related to seizure activity, as evidenced by, no further oral/li p swelling, bleeding and lacerations, no further falls, sustained head injuries or aspiratio ns of food or fluids by 09/06/2015. 2.) Shaila s pain will be managed to <4/10 by 09/06/2015. 3.) Shaila s electrolyte levels will improve by 09/06/2015. 4.) Shaila will remain alert and oriented through 09/06/2015. 5.) Shaila will be free of falls by 09/06/2015. 6.) Shaila will experience a decrease in ascites formation and accumulation as evidenced by d ecreased abdominal girth by 09/06/2015.. 7. Pt will be SBA for ADLs & functional mobility w/i room by 09/07/15. 8. Shaila will be able to mobilize independently with use of FWW as needed for safety with ga it by 09/07/15. STRATEGY TO ACHIEVE GOALS: 1.) Maintain seizure precautions. Administer anti-seizure medications per order. 2.) Monitor for seizure activity, place seizure pads to bedrails for safety. 3. Perform CIWA evaluation every 4 hours & administer Lorazepam PRN as ordered. 3.) Assess pain level at frequent intervals. Administer PRN medications as appropriate. Enc ourage repositioning as tolerated by patient. 4.) Monitor lab values, diagnostic testing and vital signs. Notify providers of pertinent c hanges. Administer electrolyte replacement as ordered. 5.) Use non-skid footwear when getting out of bed and ambulating. Call staff when getting o ut of bed. Use assistive device as needed. - Participation in therapy sessions. RESTRAINT-RELATED GOALS: STRATEGIES TO ACHIEVE RESTRAINT GOALS: / Missed Visit Patient Information Patient Name: Shaila Son Date of : 1970 Age: 45 y.o. The patient was unable to be seen for today's scheduled visit due to procedure. Pt having l iver biopsy. Plan: Cont PT tomorrow per established tx plan. Electronically signed by: Lachelle Davis, PT, 09/08/2015 13:20 edation Documentat ion Hakeem Uribe RN - 09/08/2015 12:53 PM PDTPt co pain with procedure. Medication give n. edation Documentatio n Hakeem Uribe RN - 09/08/2015 11:47 AM PDTPt arrived to ct area. She is alert and orie nted x3 and is in no pain or distress at this time pt is consulting with Dr Tolbert at bed side at this time Pt is placed to cardiac etco2 nipb spo2 monitoring. Pt positioned for pro cedure and procedure plan and process explained and questions answered. Electronically sign ed by Hakeem Gomez RN at 09/08/2015 11:53 AM PDTPlan of Care - efrain Flores, Vanda Rice, SOLIS - 11:09 AM PDTProblem: Patient Care Overview (Adult) Goal: Care Team Goals & Evaluation PROBLEM-RELATED GOALS: 1.) Shaila be free of injury related to seizure activity, as evidenced by, no further oral/li p swelling, bleeding and lacerations, no further falls, sustained head injuries or aspiratio ns of food or fluids by 09/06/2015. 2.) Shaila s pain will be managed to <4/10 by 09/06/2015. 3.) Shaila s electrolyte levels will improve by 09/06/2015. 4.) Shaila will remain alert and oriented through 09/06/2015. 5.) Shaila will be free of falls by 09/06/2015. 6.) Shaila will experience a decrease in ascites formation and accumulation as evidenced by d ecreased abdominal girth by 09/06/2015.. 7. Pt will be SBA for ADLs & functional mobility w/i room by 09/07/15. 8. Shaila will be able to mobilize independently with use of FWW as needed for safety with ga it by 09/07/15. STRATEGY TO ACHIEVE GOALS: 1.) Maintain seizure precautions. Administer anti-seizure medications per order. 2.) Monitor for seizure activity, place seizure pads to bedrails for safety. 3. Perform CIWA evaluation every 4 hours & administer Lorazepam PRN as ordered. 3.) Assess pain level at frequent intervals. Administer PRN medications as appropriate. Enc ourage repositioning as tolerated by patient. 4.) Monitor lab values, diagnostic testing and vital signs. Notify providers of pertinent c hanges. Administer electrolyte replacement as ordered. 5.) Use non-skid footwear when getting out of bed and ambulating. Call staff when getting o ut of bed. Use assistive device as needed. - Participation in therapy sessions. RESTRAINT-RELATED GOALS: STRATEGIES TO ACHIEVE RESTRAINT GOALS: / Outcome: Improving Occupational Therapy Daily Treatment Note Patient Information Patient Name: Shaila Son Date of : 1970 Age: 45 y.o. Precautions/Limitations: falls, seizures Left Upper Extremity Weight-Bearing: full weight-bearing Right Upper Extremity Weight-Bearing: full weight-bearing Left Lower Extremity Weight-Bearing: full weight-bearing Right Lower Extremity Weight-Bearing: full weight-bearing Start Time: 0830 Stop time: 0900 Time Calculation: 30 minutes Missed Treatment Time: minutes Total Treatment Time: 30 minutes TimedTreatment Code Minutes: 30 minutes Subjective: Pt in bed, sleeping, awoke easily to voice. Objective: Pt seen for ADL training and functional mob. Pt declined to shower this AM. Bed Mob, out a nd into bed Independent, Grooming standing at sink SBA. Pt agreeable to go for short walk. IV poll is not moving smoothly , it is unsafe for pt to ambulate to/from BR with IV pole. N ursing disconnected IV for short walk, pt using FWW with SBA Ambulated an est 250'. DIRECTOR OF ELEMENTARY EDUCATION bro ught a different IV pole to provide safer ambulating with pole to/from bathroom. Pt report s and nursing confirms that pt is Independent in her room. Education: Safety with functional mobility Treatment Provided: ADL and functional mobility training. Patient Status/Goals Reflects last filed data of patient status; may be from multiple contributors. ADLs Grooming, Level of Dunbar: supervision required Assistive Device: none Grooming Assess/Train, Position: standing STG Goals OT Additional Goal #1: Pt will be SBA for ADLs & functional mobility w/i room . Time to Achieve: 3 days Goal Status: met OT Additional Goal #2: SBA for toilet transfer. Time to Achieve: 3 days Goal Status: progressing toward goal, not addressed Assessment: Pt is agreeable to work with therapies. She stood at the sink to pharmacy benefits coordinator her te eth with supervision, Pt fatigued easily with ambulation, requesting to go back to bed after loop around unit Occupational Therapy Anticipated Discharge Needs are: home with assist Have the anticipated discharge needs changed? TBA Post discharge occupational therapy recommendation: TBA Plan for next treatment: 1P, DV, 1 more follow up visit for pt safety with ADL's Electronically signed by: WILL Dunne, 09/08/2015 11:01 ;y lan of Care - Nisa Lopez RN - 09/08/2015 6:30 AM PDTProblem: Patient Care Overview (Adult) Goal: Care Team Goals & Evaluation PROBLEM-RELATED GOALS: 1.) Shaila be free of injury related to seizure activity, as evidenced by, no further oral/li p swelling, bleeding and lacerations, no further falls, sustained head injuries or aspiratio ns of food or fluids by 09/06/2015. 2.) Shaila s pain will be managed to <4/10 by 09/06/2015. 3.) Shaila s electrolyte levels will improve by 09/06/2015. 4.) Shaila will remain alert and oriented through 09/06/2015. 5.) Shaila will be free of falls by 09/06/2015. 6.) Shaila will experience a decrease in ascites formation and accumulation as evidenced by d ecreased abdominal girth by 09/06/2015.. 7. Pt will be SBA for ADLs & functional mobility w/i room by 09/07/15. 8. Shaila will be able to mobilize independently with use of FWW as needed for safety with ga it by 09/07/15. STRATEGY TO ACHIEVE GOALS: 1.) Maintain seizure precautions. Administer anti-seizure medications per order. 2.) Monitor for seizure activity, place seizure pads to bedrails for safety. 3. Perform CIWA evaluation every 4 hours & administer Lorazepam PRN as ordered. 3.) Assess pain level at frequent intervals. Administer PRN medications as appropriate. Enc ourage repositioning as tolerated by patient. 4.) Monitor lab values, diagnostic testing and vital signs. Notify providers of pertinent c hanges. Administer electrolyte replacement as ordered. 5.) Use non-skid footwear when getting out of bed and ambulating. Call staff when getting o ut of bed. Use assistive device as needed. - Participation in therapy sessions. RESTRAINT-RELATED GOALS: STRATEGIES TO ACHIEVE RESTRAINT GOALS: / Goal Evaluation: CIWA-0. Remained free from falls. Calls appropriately. Independent in room. 2 mg morphine IV given at the beginning of the night for pain. remained at bedside t/o the night. IVF. NPO since midnight for liver biopsy today. No seizure activity. lan of Care - Alden Fuller Chaplain - 09/07/2015 3:58 PM PDTProblem: Spiritual Distress, Risk/Actual ( Adult,Obstetrics,Pediatric) Goal: Spiritual Well-being Patient will demonstrate the desired outcomes by discharge/transition of care. Spiritual Care Shaila Son is a 45 y.o. female who is admitted for [facility]. Spiritual Evaluation: Patient was sitting in chair watching TV. She seemed very quiet and c rissa. Patient stated she was feeling much better but had much more to go before she felt like herself. She stated she had family that had visited with her and overall everything was oka y. Patient is [place] and I wished her good health. Spiritual Intervention: Patient welcomed computer network and systems engineer visit and I wished her good health. Spiritual Outcomes: Patient thank me for the visit. Spiritual Goals/Follow up: Car Washer will continue to provide ongoing emotional/spirtiual support for patient as requested. lan of Car Juan Moore, MDS COORDINATOR - 09/07/2015 12:49 PM PDTProblem: Patient Care Overview (Adult) Goal: Care Team Goals & Evaluation PROBLEM-RELATED GOALS: 1.) Shaila be free of injury related to seizure activity, as evidenced by, no further oral/li p swelling, bleeding and lacerations, no further falls, sustained head injuries or aspiratio ns of food or fluids by 09/06/2015. 2.) Shaila s pain will be managed to <4/10 by 09/06/2015. 3.) Shaila s electrolyte levels will improve by 09/06/2015. 4.) Shaila will remain alert and oriented through 09/06/2015. 5.) Shaila will be free of falls by 09/06/2015. 6.) Shaila will experience a decrease in ascites formation and accumulation as evidenced by d ecreased abdominal girth by 09/06/2015.. 7. Pt will be SBA for ADLs & functional mobility w/i room by 09/07/15. 8. Shaila will be able to mobilize independently with use of FWW as needed for safety with ga it by 09/07/15. STRATEGY TO ACHIEVE GOALS: 1.) Maintain seizure precautions. Administer anti-seizure medications per order. 2.) Monitor for seizure activity, place seizure pads to bedrails for safety. 3. Perform CIWA evaluation every 4 hours & administer Lorazepam PRN as ordered. 3.) Assess pain level at frequent intervals. Administer PRN medications as appropriate. Enc ourage repositioning as tolerated by patient. 4.) Monitor lab values, diagnostic testing and vital signs. Notify providers of pertinent c hanges. Administer electrolyte replacement as ordered. 5.) Use non-skid footwear when getting out of bed and ambulating. Call staff when getting o ut of bed. Use assistive device as needed. - Participation in therapy sessions. RESTRAINT-RELATED GOALS: STRATEGIES TO ACHIEVE RESTRAINT GOALS: / Physical Therapy Daily Treatment Note Patient Information Patient Name: Shaila Son Date of : 1970 Age: 45 y.o. Precautions/Limitations: falls, seizures Left Upper Extremity Weight-Bearing: full weight-bearing Right Upper Extremity Weight-Bearing: full weight-bearing Left Lower Extremity Weight-Bearing: full weight-bearing Right Lower Extremity Weight-Bearing: full weight-bearing History of Presenting Problem: Transfer from [facility], no records or labs available. P t unable to provide history. Reportedly stopped medications x 1 month ago. Hx 4L paracente sis @ [facility] 03/23; hx seizures, chronic anemia. Now- acute on chronic alcoholism w/ high ris k for severe ETOH withdrawal; decompensated alcoholic cirrhosis. Underwent paracentesis 09/01 w/ 5L, 09/02 w/ 6L. PT Diagnosis: Generalized weakness and deconditioning, mild balance deficits, difficulty w ith walking Start Time: 0945 Stop time: 1000 Time Calculation: 15 minutes Missed Treatment Time: minutes Total Treatment Time: 15 minutes TimedTreatment Code Minutes: 15 minutes Subjective: Pt pleasant, very willing to participate in PT today Objective: Treatment Provided: Bed mobility, transfers, gait with fww in halls, ~120'. Some unsteadin ess noted, though no loss of balance. Education: Gait training Patient Status/Goals: Reflects last filed data of patient status; may be from multiple contributors. Gait recommend FWW as pt is slightly unsteady on her feet; git pattern irreugular with no heel s trike on L during initial contact. Level of Dunbar : supervision required Assistive Device: 2 wheeled walker (FWW) Distance (feet): 120 Transfers Sit-Stand, Level of Dunbar: supervision required Stand-Sit, Level of Dunbar: supervision required [id number], Assistive Device: 2 wheeled walker (FWW) Toilet, Assistive Device: none (recommend FWW as pt is slightly unsteady on her feet) Safety Issues: balance decreased during turns, step length decreased, loses balance backwar d Impairments: muscle tone abnormal, strength decreased, impaired balance, coordination impai red Bed Mobility Assistive Device: bed rails Supine to Sit, Level of Dunbar: modified independence Sit to Supine, Level of Dunbar: independent Impairments: impaired balance, strength decreased Balance Sitting Balance: Static: good balance Sitting Balance: Dynamic: good balance Standing Balance: Static: fair balance Standing Balance: Dynamic: (fair (-) without UE support; fair with UE support on FWW) ROM L LE ROM: L ankle only dorsiflexes to neutral Strength B Les grossly 2+ at hips aand 3+ to 4 in lower legs and ankles STG GOALS Dunbar Level: independent Assistive Device: none Time to Achieve: 2 days Goal Status: new Dunbar Level: modified independence Assistive Device: 2 wheeled walker (FWW) Time to Achieve: 2 days Goal Status: new Gait Training Goal, Dunbar Level: modified independence Assistive Device: 2 wheeled walker (FWW) Distance: 350 ft Time to Achieve: 2 days Goal Status: new Assessment: Improving mobility, somewhat unsteady, though good use of fww for balance. Physical Therapy Anticipated Discharge Needs are: (TBD; home vs. rehab facility for substance abuse) Have the anticipated discharge needs changed? no Post discharge physical therapy recommendation: Outpatient/home program Plan for next treatment: Daily, 1P, BH, progress mobility, balance, endurance Electronically signed by: Juan Kay PTA, 09/07/2015 12:45 lan of Care - [facility] Paulina gonzalez OT - 09/07/2015 12:32 PM PDTProblem: Patient Care Overview (Adult) Goal: Care Team Goals & Evaluation PROBLEM-RELATED GOALS: 1.) Shaila be free of injury related to seizure activity, as evidenced by, no further oral/li p swelling, bleeding and lacerations, no further falls, sustained head injuries or aspiratio ns of food or fluids by 09/06/2015. 2.) Shaila s pain will be managed to <4/10 by 09/06/2015. 3.) Shaila s electrolyte levels will improve by 09/06/2015. 4.) Shaila will remain alert and oriented through 09/06/2015. 5.) Shaila will be free of falls by 09/06/2015. 6.) Shaila will experience a decrease in ascites formation and accumulation as evidenced by d ecreased abdominal girth by 09/06/2015.. 7. Pt will be SBA for ADLs & functional mobility w/i room by 09/07/15. 8. Shaila will be able to mobilize independently with use of FWW as needed for safety with ga it by 09/07/15. STRATEGY TO ACHIEVE GOALS: 1.) Maintain seizure precautions. Administer anti-seizure medications per order. 2.) Monitor for seizure activity, place seizure pads to bedrails for safety. 3. Perform CIWA evaluation every 4 hours & administer Lorazepam PRN as ordered. 3.) Assess pain level at frequent intervals. Administer PRN medications as appropriate. Enc ourage repositioning as tolerated by patient. 4.) Monitor lab values, diagnostic testing and vital signs. Notify providers of pertinent c hanges. Administer electrolyte replacement as ordered. 5.) Use non-skid footwear when getting out of bed and ambulating. Call staff when getting o ut of bed. Use assistive device as needed. - Participation in therapy sessions. RESTRAINT-RELATED GOALS: STRATEGIES TO ACHIEVE RESTRAINT GOALS: / Outcome: Improving Occupational Therapy Daily Treatment Note Patient Information Patient Name: Shaila Son Date of : 1970 Age: 45 y.o. Precautions/Limitations: falls, seizures Left Upper Extremity Weight-Bearing: full weight-bearing Right Upper Extremity Weight-Bearing: full weight-bearing Left Lower Extremity Weight-Bearing: full weight-bearing Right Lower Extremity Weight-Bearing: full weight-bearing Start Time: 1155 Stop time: 1215 Time Calculation: 20 minutes Missed Treatment Time: minutes Total Treatment Time: 20 minutes TimedTreatment Code Minutes: 20 minutes Subjective: "I just layed down," lying cross-suarez on the bed. Reported she had walked to t he toilet unassisted and the IV pole nearly fell over because the wheels weren't moving well . Objective: Pt seen for light ADLs, functional mobility. LB dressing completed, see below for level of assist. Ambulated w/ SBA 250 ft, no LOB, steady gait. Returned to chair @ bedside & set-u p for lunch. Reinforced pt's need to call for assist. Nursing notified of pt's reported in dependent transfer to bathroom & IV pole near fall. Education: Safety w/ transferring Treatment Provided: ADL training; functional mobility; safety awareness Patient Status/Goals Reflects last filed data of patient status; may be from multiple contributors. ADLs LB, Level of Dunbar: supervision required, set up required LB Dressing Assess/Train, Position: sitting, standing LB Dressing Assess/Train, Impairments: impaired balance STG Goals OT Additional Goal #1: Pt will be SBA for ADLs & functional mobility w/i room . Time to Achieve: 3 days Goal Status: new Assessment: Much more alert & oriented. Flat affect but engaged in light conversation and smiled a few times. Balance improved, steady w/ gait. Occupational Therapy Anticipated Discharge Needs are: home with assist Have the anticipated discharge needs changed? no Post discharge occupational therapy recommendation: TBD Plan for next treatment: 1P,JM.ADLs,standing @ sink Electronically signed by: Paulina Johnson OT, 09/07/2015 12:26 lan of Care - H Steve jauregui RN - 09/07/2015 5:55 AM PDTProblem: Patient Care Overview (Adult) Goal: Care Team Goals & Evaluation PROBLEM-RELATED GOALS: 1.) Shaila be free of injury related to seizure activity, as evidenced by, no further oral/li p swelling, bleeding and lacerations, no further falls, sustained head injuries or aspiratio ns of food or fluids by 09/06/2015. 2.) Shaila s pain will be managed to <4/10 by 09/06/2015. 3.) Shaila s electrolyte levels will improve by 09/06/2015. 4.) Shaila will remain alert and oriented through 09/06/2015. 5.) Shaila will be free of falls by 09/06/2015. 6.) Shaila will experience a decrease in ascites formation and accumulation as evidenced by d ecreased abdominal girth by 09/06/2015.. 7. Pt will be SBA for ADLs & functional mobility w/i room by 09/07/15. 8. Shaila will be able to mobilize independently with use of FWW as needed for safety with ga it by 09/07/15. STRATEGY TO ACHIEVE GOALS: 1.) Maintain seizure precautions. Administer anti-seizure medications per order. 2.) Monitor for seizure activity, place seizure pads to bedrails for safety. 3. Perform CIWA evaluation every 4 hours & administer Lorazepam PRN as ordered. 3.) Assess pain level at frequent intervals. Administer PRN medications as appropriate. Enc ourage repositioning as tolerated by patient. 4.) Monitor lab values, diagnostic testing and vital signs. Notify providers of pertinent c hanges. Administer electrolyte replacement as ordered. 5.) Use non-skid footwear when getting out of bed and ambulating. Call staff when getting o ut of bed. Use assistive device as needed. - Participation in therapy sessions. RESTRAINT-RELATED GOALS: STRATEGIES TO ACHIEVE RESTRAINT GOALS: / Outcome: Unchanged Goal Evaluation: No evidence of seizure activity this shift. No falls, no evidence of skin breakdown. Dressi ngs to abdominal punctures r/t previous paracentesis are clean, dry and intact. Patient aler t and orientated this shift. No complaints of pain. Calls approprietly. Electronically hamilton d by: Steve Lozano RN 09/07/2015 5:55 lan of Care - Jamila Oliva RN - 09/06/2015 8:39 PM PDTProblem: Patient Care Overview (Adult) Goal: Care Team Goals & Evaluation PROBLEM-RELATED GOALS: 1.) Shaila be free of injury related to seizure activity, as evidenced by, no further oral/li p swelling, bleeding and lacerations, no further falls, sustained head injuries or aspiratio ns of food or fluids by 09/06/2015. 2.) Shaila s pain will be managed to <4/10 by 09/06/2015. 3.) Shaila s electrolyte levels will improve by 09/06/2015. 4.) Shaila will remain alert and oriented through 09/06/2015. 5.) Shaila will be free of falls by 09/06/2015. 6.) Shaila will experience a decrease in ascites formation and accumulation as evidenced by d ecreased abdominal girth by 09/06/2015.. 7. Pt will be SBA for ADLs & functional mobility w/i room by 09/07/15. 8. Shaila will be able to mobilize independently with use of FWW as needed for safety with ga it by 09/07/15. STRATEGY TO ACHIEVE GOALS: 1.) Maintain seizure precautions. Administer anti-seizure medications per order. 2.) Monitor for seizure activity, place seizure pads to bedrails for safety. 3. Perform CIWA evaluation every 4 hours & administer Lorazepam PRN as ordered. 3.) Assess pain level at frequent intervals. Administer PRN medications as appropriate. Enc ourage repositioning as tolerated by patient. 4.) Monitor lab values, diagnostic testing and vital signs. Notify providers of pertinent c hanges. Administer electrolyte replacement as ordered. 5.) Use non-skid footwear when getting out of bed and ambulating. Call staff when getting o ut of bed. Use assistive device as needed. - Participation in therapy sessions. RESTRAINT-RELATED GOALS: STRATEGIES TO ACHIEVE RESTRAINT GOALS: / Outcome: Unchanged Goal Evaluation:Pt flat affect. Alert and Oriented. Complained of pain in legs and hips, m tirso it known to doctor. New IV placed for CT. NS 500cc bolus before CT. Went and talked to patient of results. Coreg held and doctor aware this am for low BP. Coreg dose decreas ed. Loose stools via lactulose with some incontinence. lan of [place] - Yumiko Anderson RN - 09/06/2015 9:59 AM PDTDischarge planning: I received a phone call from Cathie with [facility] this morning. She states that they have a bed available and would be able to accept Ms Shaila Son when she is medially stable for discharge. Cathie with [facility] does request for the doctor to include an order for Ativan PO and IM o n her SNF discharge order for possible Seizure activity. Otherwise no concerns with taking h er. Dr Lomas notified of the above information. Electronically signed by: Yumiko Anderson RN 09/06/2015 10:01 [facility] notified patient will be medially stable for discharge tomorrow, Sunday , 09/07/2015. Patient also notified of the above information. Electronically signed by: Yumiko Anderson RN 09/06/2015 11:40 Updated doctor progress notes faxed to [facility] per her request, fax # . Electronically signed by: Yumiko Anderson RN 09/06/2015 15:55 lan of Care - Clare Trejo, PT - 09/06/2015 8:46 AM PDT Problem: Patient Care Overview (Adult) Goal: Care Team Goals & Evaluation PROBLEM-RELATED GOALS: 1.) Shaila be free of injury related to seizure activity, as evidenced by, no further oral/li p swelling, bleeding and lacerations, no further falls, sustained head injuries or aspiratio ns of food or fluids by 09/06/2015. 2.) Shaila s pain will be managed to <4/10 by 09/06/2015. 3.) Shaila s electrolyte levels will improve by 09/06/2015. 4.) Shaila will remain alert and oriented through 09/06/2015. 5.) Shaila will be free of falls by 09/06/2015. 6.) Shaila will experience a decrease in ascites formation and accumulation as evidenced by d ecreased abdominal girth by 09/06/2015.. 7. Pt will be SBA for ADLs & functional mobility w/i room by 09/07/15. 8. Shaila will be able to mobilize independently with use of FWW as needed for safety with ga it by 09/07/15. STRATEGY TO ACHIEVE GOALS: 1.) Maintain seizure precautions. Administer anti-seizure medications per order. 2.) Monitor for seizure activity, place seizure pads to bedrails for safety. 3. Perform CIWA evaluation every 4 hours & administer Lorazepam PRN as ordered. 3.) Assess pain level at frequent intervals. Administer PRN medications as appropriate. Enc ourage repositioning as tolerated by patient. 4.) Monitor lab values, diagnostic testing and vital signs. Notify providers of pertinent c hanges. Administer electrolyte replacement as ordered. 5.) Use non-skid footwear when getting out of bed and ambulating. Call staff when getting o ut of bed. Use assistive device as needed. - Participation in therapy sessions. RESTRAINT-RELATED GOALS: STRATEGIES TO ACHIEVE RESTRAINT GOALS: / Physical Therapy Acute Initial Evaluation Note Patient Information Patient Name: Shaila Son Date of : 1970 Age: 45 y.o. History Encounter Diagnoses Code Name Primary? F10.229 Alcohol dependence with intoxication with complication (HCC) Yes D64.9 Anemia, unspecified type K70.31 Ascites due to alcoholic cirrhosis (HCC) E87.1 Hyponatremia Date of Onset: 09/01/15 Past Medical History Diagnosis Date Cirrhosis, alcoholic (HCC) Hypertension No past surgical history on file. Allergies Allergen Reactions Ciprofloxacin Anaphylaxis Sulfamethoxazole-Trimethoprim Anaphylaxis Ibuprofen Hives Pt also has liver failure Precautions/Limitations: falls, seizures Left Upper Extremity Weight-Bearing: full weight-bearing Right Upper Extremity Weight-Bearing: full weight-bearing Left Lower Extremity Weight-Bearing: full weight-bearing Right Lower Extremity Weight-Bearing: full weight-bearing EVALUATION: SUBJECTIVE: History of Presenting Problem: Shaila Son is a 45 y.o. who transferred from [facility], no records or labs available. Pt unable to provide history. Reportedl y stopped medications x 1 month ago. Hx 4L paracentesis @ [place] 03/23; hx seizures, chronic anemia. Now- acute on chronic alcoholism w/ high risk for severe ETOH withdrawal; decompens ated alcoholic cirrhosis. Underwent paracentesis 09/01 w/ 5L, 09/02 w/ 6L. Pt presents in b ed on room air; flat affect but agreeable to PT. Denies pain and says that she would like to go to rehab for substance abuse. PT Diagnosis: Generalized weakness and deconditioning, mild balance deficits, difficulty w ith walking Impairments Found: gait, locomotion, and balance, muscle performance Previous Level of Function: Ambulation: 3-->assistive equipment and person Transferrin-->assistive equipment and person Toiletin-->assistive person Bathin-->assistive person Dressin-->assistive person Eatin-->independent Communication: 0-->understands/communicates without difficulty Swallowin-->swallows foods/liquids without difficulty Role/Relationships: Living Environment/Accessibility: Lives With: (aunt; retired and has caregivers) Living Arrangements: house Number of Stairs to Enter Home: 0 Number of Stairs Within Home: 0 Transportation Available: none Patient s Goals: Pt wants to go back to rehab for substance abuse OBJECTIVE : Patient Status/Goals: Reflects last filed data of patient status; may be from multiple contributors. Gait recommend FWW as pt is slightly unsteady on her feet; git pattern irreugular with no heel s trike on L during initial contact. Stairs NT as pt doesn't have stairs at home. Transfers Sit-Stand, Level of Dunbar: supervision required Toilet, Assistive Device: none (recommend FWW as pt is slightly unsteady on her feet) Safety Issues: balance decreased during turns, step length decreased, loses balance backwar d Impairments: muscle tone abnormal, strength decreased, impaired balance, coordination impai red Bed Mobility Assistive Device: bed rails Supine to Sit, Level of Dunbar: modified independence Sit to Supine, Level of Dunbar: independent Impairments: impaired balance, strength decreased Balance Sitting Balance: Static: good balance Sitting Balance: Dynamic: good balance Standing Balance: Static: fair balance Standing Balance: Dynamic: (fair (-) without UE support; fair with UE support on FWW) Functional Endurance Impaired; pt felt SOB by end of carmine. 120 ft of gait. However, vital signs were within safe limits and Sp02 had not changed significantly. ROM L LE ROM: L ankle only dorsiflexes to neutral Strength B Les grossly 2+ at hips aand 3+ to 4 in lower legs and ankles STG GOALS Dunbar Level: independent Assistive Device: none Time to Achieve: 2 days Goal Status: new Dunbar Level: modified independence Assistive Device: 2 wheeled walker (FWW) Time to Achieve: 2 days Goal Status: new Gait Training Goal, Dunbar Level: modified independence Assistive Device: 2 wheeled walker (FWW) Distance: 350 ft Time to Achieve: 2 days Goal Status: new Assessment: Physical therapy orders received and acknowledged. Objective impairments inclu de generalized weakness and deconditioning, mild balance deficits, and difficulty with walki ng. These impairments are causing functional limitations with patient s inability to mobil ize at a safe and independent level. Complexities contributing to the need for skilled thera py include hx of acute on chronic alcoholism w/ high risk for severe ETOH withdrawal; decomp ensated alcoholic cirrhosis.. Rehabilitation potential: Patient demonstrates good potential to achieve established goals and good potential to achieve prior status to address the documented impairments by partici pating in skilled physical therapy services. PLAN: bed mobility training, transfer training, gait training, balance training, patient/family e ducation, home exercise program, strengthening Physical Therapy will follow Shaila Son daily until discharge from therapy or disc harged from the hospital. Anticipated days that therapy will be provided: 2-3 days Physical Therapy Anticipated Discharge Needs: Ongoing PT services required. DC disposition TBD. Post discharge physical therapy recommendation: (TBD) Equipment Recommendations: 2 wheeled walker (FWW) Patient and/or family has indicated understanding of treatment needs and actively participa magen in the creation of this plan for care. Today's Treatment Start Time: 20 Stop time: 1000 Time Calculation: 40 minutes Missed Treatment Time: minutes Total Treatment Time: 40 minutes TimedTreatment Code Minutes: 10 minutes Objective: Treatment Provided: PT eval completed. Pt instructed in how to do L gastroc stretches with use of sheet. Performed repeat demo with 60 sec hold and pt instructed to do this 2-3 more t imes through the day and also to walk with nursing 2-3 more times today. FWW adjusted to pt' s height and pt instructed in how to use FWW. Education: See above; pt also provided with ed re: PT POC and expected progression of rehab . Assessment: Pt appears withdrawn and has flat affect but follows cues and participates as i nstructed. Somewhat unsteady on her feet and with tight heelcord on R, so will benefit from FWW and supervision for now. Plan for next treatment: 1P;KH; pt to walk with nursing staff 3x today; will reassess yady rrow and make further recommendations. Electronically signed by: Clare Menchaca, PT, 09/06/2015 8:29 lan of Care - H Steve jauregui RN - 09/06/2015 8:08 AM PDTProblem: Patient Care Overview (Adult) Goal: Care Team Goals & Evaluation PROBLEM-RELATED GOALS: 1.) Shaila be free of injury related to seizure activity, as evidenced by, no further oral/li p swelling, bleeding and lacerations, no further falls, sustained head injuries or aspiratio ns of food or fluids by 09/06/2015. 2.) Shaila s pain will be managed to <4/10 by 09/06/2015. 3.) Shaila s electrolyte levels will improve by 09/06/2015. 4.) Shaila will remain alert and oriented through 09/06/2015. 5.) Shaila will be free of falls by 09/06/2015. 6.) Shaila will experience a decrease in ascites formation and accumulation as evidenced by d ecreased abdominal girth by 09/06/2015.. 7. Pt will be SBA for ADLs & functional mobility w/i room by 09/07/15. STRATEGY TO ACHIEVE GOALS: 1.) Maintain seizure precautions. Administer anti-seizure medications per order. 2.) Monitor for seizure activity, place seizure pads to bedrails for safety. 3. Perform CIWA evaluation every 4 hours & administer Lorazepam PRN as ordered. 3.) Assess pain level at frequent intervals. Administer PRN medications as appropriate. Enc ourage repositioning as tolerated by patient. 4.) Monitor lab values, diagnostic testing and vital signs. Notify providers of pertinent c hanges. Administer electrolyte replacement as ordered. 5.) Use non-skid footwear when getting out of bed and ambulating. Call staff when getting o ut of bed. Use assistive device as needed. - Participation in therapy sessions. RESTRAINT-RELATED GOALS: STRATEGIES TO ACHIEVE RESTRAINT GOALS: / Outcome: Unchanged Goal Evaluation: No evidence of seizure activity this shift. No falls, no evidence of skin breakdown. Dressi ngs to abdominal punctures r/t previous paracentesis are clean, dry and intact. Shaila receive d 1 unit of RBC's this shift, no reaction noted, education given, consent signed and placed in ost chart. Patient alert and orientated this shift. No complaints of pain. Calls approp rietly. lan of Care - Kelly Cardoso RN - 09/05/2015 4:41 PM PDTProblem: Patient Care Overview (Adult) Goal: Care Team Goals & Evaluation PROBLEM-RELATED GOALS: 1.) Shaila be free of injury related to seizure activity, as evidenced by, no further oral/li p swelling, bleeding and lacerations, no further falls, sustained head injuries or aspiratio ns of food or fluids by 09/06/2015. 2.) Shaila s pain will be managed to <4/10 by 09/06/2015. 3.) Shaila s electrolyte levels will improve by 09/06/2015. 4.) Shaila will remain alert and oriented through 09/06/2015. 5.) Shaila will be free of falls by 09/06/2015. 6.) Shaila will experience a decrease in ascites formation and accumulation as evidenced by d ecreased abdominal girth by 09/06/2015.. 7. Pt will be SBA for ADLs & functional mobility w/i room by 09/07/15. STRATEGY TO ACHIEVE GOALS: 1.) Maintain seizure precautions. Administer anti-seizure medications per order. 2.) Monitor for seizure activity, place seizure pads to bedrails for safety. 3. Perform CIWA evaluation every 4 hours & administer Lorazepam PRN as ordered. 3.) Assess pain level at frequent intervals. Administer PRN medications as appropriate. Enc ourage repositioning as tolerated by patient. 4.) Monitor lab values, diagnostic testing and vital signs. Notify providers of pertinent c hanges. Administer electrolyte replacement as ordered. 5.) Use non-skid footwear when getting out of bed and ambulating. Call staff when getting o ut of bed. Use assistive device as needed. - Participation in therapy sessions. RESTRAINT-RELATED GOALS: STRATEGIES TO ACHIEVE RESTRAINT GOALS: / Goal Evaluation: 15Kg wt loss since admit after diuretics & paracentesis. Eupneic on RA. Lethargic & fatigu e. Oriented x3. Denies discomfort. Up in chair and up to BR. Therapist in but didn't work wi th pt as she was sleeping. Case Management working with Sukhwinder On dc plan to home or snf. lan of Care - Blayne Suzette nuñez, OT - 09/05/2015 3:21 PM PDTProblem: Patient Care Overview (Adult) Goal: Care Team Goals & Evaluation PROBLEM-RELATED GOALS: 1.) Shaila be free of injury related to seizure activity, as evidenced by, no further oral/li p swelling, bleeding and lacerations, no further falls, sustained head injuries or aspiratio ns of food or fluids by 09/06/2015. 2.) Shaila s pain will be managed to <4/10 by 09/06/2015. 3.) Shaila s electrolyte levels will improve by 09/06/2015. 4.) Shaila will remain alert and oriented through 09/06/2015. 5.) Shaila will be free of falls by 09/06/2015. 6.) Shaila will experience a decrease in ascites formation and accumulation as evidenced by d ecreased abdominal girth by 09/06/2015.. 7. Pt will be SBA for ADLs & functional mobility w/i room by 09/07/15. STRATEGY TO ACHIEVE GOALS: 1.) Maintain seizure precautions. Administer anti-seizure medications per order. 2.) Monitor for seizure activity, place seizure pads to bedrails for safety. 3. Perform CIWA evaluation every 4 hours & administer Lorazepam PRN as ordered. 3.) Assess pain level at frequent intervals. Administer PRN medications as appropriate. Enc ourage repositioning as tolerated by patient. 4.) Monitor lab values, diagnostic testing and vital signs. Notify providers of pertinent c hanges. Administer electrolyte replacement as ordered. 5.) Use non-skid footwear when getting out of bed and ambulating. Call staff when getting o ut of bed. Use assistive device as needed. - Participation in therapy sessions. RESTRAINT-RELATED GOALS: STRATEGIES TO ACHIEVE RESTRAINT GOALS: / Missed Visit Patient Information Patient Name: Shaila Son Date of : 1970 Age: 45 y.o. The patient was unable to be seen for today's scheduled visit due to patient declining due to being fatigued. Patient fell asleep in the middle of talking to this therapist. Plan: To attempt to see tomorrow. Electronically signed by: Suzette Arcos OT, 09/05/2015 15:20 lan of [facility] - Yumiko Quevedo RN - 09/05/2015 1:33 PM PDTDischarge planning: This CM discussed with patient the option of going to a SNF for physical therapy Rehab. She agrees and would like to go to [facility] as she is from [place] and family and friends could visit. If [facility] does not have any beds available, she is open to [place]. Referral has been faxed to [facility]. Yumiko Anderson RN 09/05/2015 12:23 lan of [facility] Steve Salamanca RN - 09/05/2015 5:09 AM PDTProblem: Patient Care Overview (Adult) Goal: Care Team Goals & Evaluation PROBLEM-RELATED GOALS: 1.) Shaila be free of injury related to seizure activity, as evidenced by, no further oral/li p swelling, bleeding and lacerations, no further falls, sustained head injuries or aspiratio ns of food or fluids by 09/06/2015. 2.) Shaila s pain will be managed to <4/10 by 09/06/2015. 3.) Shaila s electrolyte levels will improve by 09/06/2015. 4.) Shaila will remain alert and oriented through 09/06/2015. 5.) Shaila will be free of falls by 09/06/2015. 6.) Shaila will experience a decrease in ascites formation and accumulation as evidenced by d ecreased abdominal girth by 09/06/2015.. 7. Pt will be SBA for ADLs & functional mobility w/i room by 09/07/15. STRATEGY TO ACHIEVE GOALS: 1.) Maintain seizure precautions. Administer anti-seizure medications per order. 2.) Monitor for seizure activity, place seizure pads to bedrails for safety. 3. Perform CIWA evaluation every 4 hours & administer Lorazepam PRN as ordered. 3.) Assess pain level at frequent intervals. Administer PRN medications as appropriate. Enc ourage repositioning as tolerated by patient. 4.) Monitor lab values, diagnostic testing and vital signs. Notify providers of pertinent c hanges. Administer electrolyte replacement as ordered. 5.) Use non-skid footwear when getting out of bed and ambulating. Call staff when getting o ut of bed. Use assistive device as needed. - Participation in therapy sessions. RESTRAINT-RELATED GOALS: STRATEGIES TO ACHIEVE RESTRAINT GOALS: / Outcome: Unchanged Goal Evaluation: No evidence of seizure activity this shift. No falls, no evidence of skin breakdown. Dressi ngs to abdominal punctures r/t previous Paracentesis are clean, dry and intact. Patient katharine rt and orientated this shift. No complaints of pain. Calls approprietly. Electronically signed by: Steve Lozano RN 09/05/2015 5:09 lan of Care - Teresa Sun RN - 09/04/2015 6:50 PM PDTProblem: Patient Care Overview (Adult) Goal: Care Team Goals & Evaluation PROBLEM-RELATED GOALS: 1.) Shaila be free of injury related to seizure activity, as evidenced by, no further oral/li p swelling, bleeding and lacerations, no further falls, sustained head injuries or aspiratio ns of food or fluids by 09/06/2015. 2.) Shaila s pain will be managed to <4/10 by 09/06/2015. 3.) Shaila s electrolyte levels will improve by 09/06/2015. 4.) Shaila will remain alert and oriented through 09/06/2015. 5.) Shaila will be free of falls by 09/06/2015. 6.) Shaila will experience a decrease in ascites formation and accumulation as evidenced by d ecreased abdominal girth by 09/06/2015.. 7. Pt will be SBA for ADLs & functional mobility w/i room by 09/07/15. STRATEGY TO ACHIEVE GOALS: 1.) Maintain seizure precautions. Administer anti-seizure medications per order. 2.) Monitor for seizure activity, place seizure pads to bedrails for safety. 3. Perform CIWA evaluation every 4 hours & administer Lorazepam PRN as ordered. 3.) Assess pain level at frequent intervals. Administer PRN medications as appropriate. Enc ourage repositioning as tolerated by patient. 4.) Monitor lab values, diagnostic testing and vital signs. Notify providers of pertinent c hanges. Administer electrolyte replacement as ordered. 5.) Use non-skid footwear when getting out of bed and ambulating. Call staff when getting o ut of bed. Use assistive device as needed. - Participation in therapy sessions. RESTRAINT-RELATED GOALS: STRATEGIES TO ACHIEVE RESTRAINT GOALS: / Outcome: Improving Goal Evaluation: Shaila transferred from ICU, flat affect, A&O, CIWA PRN, no pain since arrival, loose stools , dressings to the left and right side CDI, calls appropriately and makes needs known. Sleep most of the afternoon. lan of Lucio Johnson Paulina Rupesh, OT - 09/04/2015 12:27 PM PDTFormatting of this note might be differe nt from the original. Problem: Patient Care Overview (Adult) Goal: Care Team Goals & Evaluation PROBLEM-RELATED GOALS: 1.) Shaila be free of injury related to seizure activity, as evidenced by, no further oral/li p swelling, bleeding and lacerations, no further falls, sustained head injuries or aspiratio ns of food or fluids by 09/06/2015. 2.) Shaila s pain will be managed to <4/10 by 09/06/2015. 3.) Shaila s electrolyte levels will improve by 09/06/2015. 4.) Shaila will remain alert and oriented through 09/06/2015. 5.) Shaila will be free of falls by 09/06/2015. 6.) Shaila will experience a decrease in ascites formation and accumulation as evidenced by d ecreased abdominal girth by 09/06/2015.. 7. Pt will be SBA for ADLs & functional mobility w/i room by 09/07/15. STRATEGY TO ACHIEVE GOALS: 1.) Maintain seizure precautions. Administer anti-seizure medications per order. 2.) Monitor for seizure activity, place seizure pads to bedrails for safety. 3. Perform CIWA evaluation every 4 hours & administer Lorazepam PRN as ordered. 3.) Assess pain level at frequent intervals. Administer PRN medications as appropriate. Enc ourage repositioning as tolerated by patient. 4.) Monitor lab values, diagnostic testing and vital signs. Notify providers of pertinent c hanges. Administer electrolyte replacement as ordered. 5.) Use non-skid footwear when getting out of bed and ambulating. Call staff when getting o ut of bed. Use assistive device as needed. - Participation in therapy sessions. RESTRAINT-RELATED GOALS: STRATEGIES TO ACHIEVE RESTRAINT GOALS: / Occupational Therapy Acute Initial Evaluation Note Patient Information Patient Name: Shaila Son Date of : 1970 Age: 45 y.o. History Encounter Diagnoses Code Name Primary? F10.229 Alcohol dependence with intoxication with complication (HCC) Yes D64.9 Anemia, unspecified type K70.31 Ascites due to alcoholic cirrhosis (HCC) E87.1 Hyponatremia Date of Onset: 09/01/15 Past Medical History Diagnosis Date Cirrhosis, alcoholic (HCC) Hypertension No past surgical history on file. Allergies Allergen Reactions Ciprofloxacin Anaphylaxis Sulfamethoxazole-Trimethoprim Anaphylaxis Ibuprofen Hives Pt also has liver failure Precautions/Limitations: falls Left Upper Extremity Weight-Bearing: full weight-bearing Right Upper Extremity Weight-Bearing: full weight-bearing Left Lower Extremity Weight-Bearing: full weight-bearing Right Lower Extremity Weight-Bearing: full weight-bearing Evaluation SUBJECTIVE: History of Presenting Problem: Shaila Son is a 45 y.o. who presents to therapy for Transfer from [facility], no records or labs available. Pt unable to provid e history. Reportedly stopped medications x 1 month ago. Hx 4L paracentesis @ [facility] 03/23; hx seizures, chronic anemia. Now- acute on chronic alcoholism w/ high risk for severe ETOH withdrawal; decompensated alcoholic cirrhosis. Underwent paracentesis 09/01 w/ 5L, 09/02 w/ 6L . Patient is right handed. OT Diagnosis: Impaired ADLs, decreased functional mobility, decreased safety awareness Previous Level of Function: Ambulation: 3-->assistive equipment and person Transferrin-->assistive equipment and person Toiletin-->assistive person Bathin-->assistive person Dressin-->assistive person Eatin-->independent Communication: 0-->understands/communicates without difficulty Swallowin-->swallows foods/liquids without difficulty Role/Relationships: Unstated by pt. See also Living Environment/Accessibility: Lives With: other relative(s) (specify) Living Arrangements: house Transportation Available: none Patient s Goals: Unstated by pt @ this time OT Visit Summary: Pt seen for OT evaluation. Pt resting, alert but slightly lethargic, ve ry soft voice. Supine-sit w/ min assist. Sit-stand & ambulated w/ close CGA w/ FWW to toil et. Very ataxic gait, impaired use of FWW. Completed toilet transfer/toileting as noted be low. Assisted to medical floor. Ambulated 15 ft w/ CGA, cues for safe use of FWW. Sit-sup ine w/ SBA. Verbal, light tactile cues to bridge and scoot hips in bed. Care handed off to RN. Occupational Therapy will follow Shaila Son (2-3 addt'l OT visits) Occupational Therapy Anticipated Discharge Needs: Ongoing occupational therapy required. DC disposition TBD. Post discharge occupational therapy recommendation: TBD- probable need for supervision w/ ADLs/mobility Equipment Recommendations: (TBD) Identified Problems Needing Skilled Intervention: Impaired ADLs, decreased functional mob ility, decreased safety awareness, ergonomics and body mechanics, gait, locomotion, and aileen nce, arousal, attention, and cognition Planned Interventions:Planned Therapy Interventions: ADL retraining, bed mobility training, transfer training, balance training Patient Status/Goals Reflects last filed data of patient status; may be from multiple contributors. ADLs Toileting, Level of Dunbar: contact guard assist, verbal cues required, set up requir ed Assistive Device: grab bar Toileting Assess/Train, Position: sitting, supported standing Toileting Assess/Train, Impairments: impaired balance, strength decreased, coordination imp aired Cognitive Mood/Behavior: hypoactive (quiet, withdrawn), flat affect Orientation: oriented x 4 Speech: (very soft) Transfers Toilet, Level of Dunbar: contact guard assist, verbal cues required, set up required Toilet, Assistive Device: 2 wheeled walker (FWW), grab bars Safety Issues: balance decreased during turns, step length decreased, loses balance backwar d Impairments: muscle tone abnormal, strength decreased, impaired balance, coordination impai red ROM L UE ROM: WFL R UE ROM: WFL STG Goals OT Additional Goal #1: Pt will be SBA for ADLs & functional mobility w/i room . Time to Achieve: 3 days Goal Status: new OT Additional Goal #2: SBA for toilet transfer. Time to Achieve: 3 days Goal Status: new Demonstrates need for referral to other service: Case mgmt/Discharge planning Assessment: Occupational therapy orders received and acknowledged. Objective impairments i nclude impaired ADLs, decreased fxl mobility, decreased safety awareness. These impairments are causing functional limitations with patient s inability to safely & independently comp lete ADLs/fxl mobility. Complexities contributing to the need for skilled therapy include ch ronic ETOH & probable historical balance deficits/ataxia; questionable living situation. Prognosis: good, to achieve stated therapy goals Patient and/or family has indicated understanding of treatment needs and actively participa magen in the creation of this plan for care. Today's Treatment Start Time: 1132 Stop time: 1155 Time Calculation: 23 minutes Missed Treatment Time: minutes Total Treatment Time: 23 minutes TimedTreatment Code Minutes: 13 minutes Objective: Pt seen for OT evaluation. Please see above for addt'l info on status & outcom e. Education: OT POC; safety Treatment Provided: ADL training; functional mobility Assessment: OT evaluation completed. Pt mildly lethargic but following directions. Very a taxic gait requiring CGA. Probable continued need for supervision w/ ADLs/fxl mobility once d/cd. Plan for next treatment: 1P,JM.U/LB dressing,fxl mobility Electronically signed by: Paulina Johnson OT, 09/04/2015 12:19 lan of Care - F Lela pino RN - 09/04/2015 7:46 AM PDTProblem: Patient Care Overview (Adult) Goal: Care Team Goals & Evaluation PROBLEM-RELATED GOALS: 1.) Shaila be free of injury related to seizure activity, as evidenced by, no further oral/li p swelling, bleeding and lacerations, no further falls, sustained head injuries or aspiratio ns of food or fluids by 09/06/2015. 2.) Shaila s pain will be managed to <4/10 by 09/06/2015. 3.) Shaila s electrolyte levels will improve by 09/06/2015. 4.) Shaila will remain alert and oriented through 09/06/2015. 5.) Shaila will be free of falls by 09/06/2015. 6.) Shaila will experience a decrease in ascites formation and accumulation as evidenced by d ecreased abdominal girth by 09/06/2015. STRATEGY TO ACHIEVE GOALS: 1.) Maintain seizure precautions. Administer anti-seizure medications per order. 2.) Monitor for seizure activity, place seizure pads to bedrails for safety. 3. Perform CIWA evaluation every 4 hours & administer Lorazepam PRN as ordered. 3.) Assess pain level at frequent intervals. Administer PRN medications as appropriate. Enc ourage repositioning as tolerated by patient. 4.) Monitor lab values, diagnostic testing and vital signs. Notify providers of pertinent c hanges. Administer electrolyte replacement as ordered. 5.) Use non-skid footwear when getting out of bed and ambulating. Call staff when getting o ut of bed. Use assistive device as needed. RESTRAINT-RELATED GOALS: STRATEGIES TO ACHIEVE RESTRAINT GOALS: / Outcome: Unchanged Goal Evaluation: A&O X 4. Vital signs stable. Lung sounds clear, RA. CIWA 6-8, Lorazapem X 1 this shift. Par acentesis X 2 this admit, total of 11 L drained from abdomen over last 2 days. No further le aking from drain sites. BT Hyperactive, Lactulose TID with multiple loose stools per shift. Amonia 101 yesterday, no re-draw today. HGB 7.4, up from 7.1 yesterday. No transfusion. Bed alarm in place. lan of Care - [facility] Kristen chow RN - 09/03/2015 6:36 PM PDTProblem: Patient Care Overview (Adult) Goal: Care Team Goals & Evaluation PROBLEM-RELATED GOALS: Shaila will remain free of seizure activity through 09/06/2015. Shaila s pain will be managed to <4/10 by 09/06/2015. Shaila s electrolyte levels will improve by 09/06/2015. Shaila will remain alert and oriented through 09/06/2015. STRATEGY TO ACHIEVE GOALS: Maintain seizure precautions. Administer anti-seizure medications per order. Monitor for se izure activity and perform CIWA evaluation as ordered. Assess pain level at frequent intervals. Administer PRN medications as appropriate. Encoura ge repositioning as tolerated by patient. Assist w/ paracentesis procedure. Monitor labs. Administer electrolyte replacement as ordered. Assess orientation at regular intervals. Use CIWA protocol at regular intervals. Administer lactulose and other medications as ordered. RESTRAINT-RELATED GOALS: STRATEGIES TO ACHIEVE RESTRAINT GOALS: Goal Evaluation: Shaila denies pain or nausea today. ciwa scores 0-4. Paracentesis done with 6 L removed today from R. Abdomen. No leaking from site noted. Vss. Albumin infusing. La ctulose given. Multiple loose BM's today. lan of Care - Sabrina Sheldon RN - 09/03/2015 5:25 AM PDTProblem: Patient Care Overview (Adult) Goal: Care Team Goals & Evaluation PROBLEM-RELATED GOALS: Shaila will remain free of seizure activity through 09/06/2015. Shaila s pain will be managed to <4/10 by 09/06/2015. Shaila s electrolyte levels will improve by 09/06/2015. Shaila will remain alert and oriented through 09/06/2015. STRATEGY TO ACHIEVE GOALS: Maintain seizure precautions. Administer anti-seizure medications per order. Monitor for se izure activity and perform CIWA evaluation as ordered. Assess pain level at frequent intervals. Administer PRN medications as appropriate. Encoura ge repositioning as tolerated by patient. Assist w/ paracentesis procedure. Monitor labs. Administer electrolyte replacement as ordered. Assess orientation at regular intervals. Use CIWA protocol at regular intervals. Administer lactulose and other medications as ordered. RESTRAINT-RELATED GOALS: STRATEGIES TO ACHIEVE RESTRAINT GOALS: Goal Evaluation: SD: Paracentesis 09/01 w/ 5 L off per report and more leaking out of site. A & O x 4. CIWA 0-3. VSS. Denies pain, SOB, n/v. Flat affect, and sleeping much of night. Room air. Multipl e liquid bowel movements. On Lactulose. Paracentesis site continues to leak. Dressing quinn ed x 2, and 5 lb weight used intermittently. Pt's appetite improving, and able to eat small snacks twice during shift. Hgb 7.1 this morning, aware. Ammonia 101. Anticipate possible paracentesis again today. lan of Care - Tresa Viera RN - 09/02/2015 6:23 PM PDTProblem: Acute Alcohol Withdrawal Syndrome, Risk F or/Actual (Adult) Prevent and manage potential problems includin. effects of alcohol withdrawal syndrome ( MILLY) including delirium tremens2. situational response Goal: Signs and Symptoms of Listed Potential Problems Will be Absent or Manageable (Acute A lcohol Withdrawal Syndrome, Risk For/Actual) Signs and symptoms of listed potential problems will be absent or manageable by discharge/t ransition of care (reference Acute Alcohol Withdrawal Syndrome, Risk For/Actual (Adult) CPG) . Outcome: Improving Patient was sleepy most of the day. Did have one episode of agitation and hallucination. Me dicated with ativan with good result. lan of Care - Tresa Up RN - 09/02/2015 6:22 PM PDTProblem: Liver Failure, Acute/Chronic (Adult) Prevent and manage potential problems includin. fluid/electrolyte imbalance2. gastrointe stinal complications3. impaired coagulation4. infection5. malnutrition6. neurologic deterior ation7. pain8. renal dysfunction9. respiratory lnczzpfask45. situational response Intervention: Promote Neurologic Homeostasis Patient still has large abdomen. Had 5.5 liters of fluid drained from her abdomen this morn ing. Afterwards the site continued to leak copious amounts of fluids. Steri strips where carmine lied as well as pressure for a long period of time with the fluids continuing to leak out. Kenzie Lomas had to put in sutures to help stop the leaking with it still coming out. Ended up p lacing patient on to her right side with a 5 lb weight over the site. This did slow down the leaking but is not completely stopping it. Continues to have liquid stools from lactulose. Has been sleepy most of the day. Goal: Signs and Symptoms of Listed Potential Problems Will be Absent or Manageable (Liver F ailure, Acute/Chronic) Signs and symptoms of listed potential problems will be absent or manageable by discharge/t ransition of care (reference Liver Failure, Acute/Chronic (Adult) CPG). Outcome: Unchanged lan of Care - Erika Cline RN - 09/02/2015 5:13 PM PDTProblem: Discharge Planning Goal: Patient will be discharged in a safe manner Outcome: Unchanged Shaila was unable to visit as she was heavily medicated so I visited with her S.O. Edd Shipley rs ( , Home (this is the land line at [address] [place] as there is no Cell p radha chair caner out there) #[phone]). He said that the living situation is as follows. She has a room in her Aunt Angy's home located in [place], [place] that she doesn't use very o ften where four of her Cousins live as well. She normally lives with Edd in a mobile that is located below Aunt Angy's home. There are three steps leading to the [facility]. Trixie Rose PA-C at the [facility] is her PCP. I called [facility]rian am[facility] and had them place her name on Shaila's chart. She uses the pharmacy located at [facility] first then uses the [facility] second. She owns a cane, a four wheel walker, hand rails by the tub/shower and toilet, a hand held shower head and uses a metal fold up chair in the tub. She has used the [facility] for most of her DME and then would li ke to use [facility] located in [place], [place]. They said that [facility] would be fine if they would come out. They said that the four Cousins staying at [facility] [place] home are all drinking all the time. Edd said that his home would be a safe place for H H to visit though. Edd said that she would go back to [place] as her "Plan B" as she has stayed there before. Edd said that Shaila had been drinking prior to this hospitalizati on and that she had stopped taking her medications when she started to drink as she did not feel they would do her any good when she was drinking. Edd said that Shaila stayed in touch with her Drug and Alcohol Counselor, Andreia ([phone]), from [facility] and that she had helped arrange for her to come to [facility]. There was a questions as to whether Hospice w as involved in her case but Edd said that he had never heard that and that no one had ever visited her at his home. Edd also said that Shaila was staying in touch with They had a PO LST form that I had scanned into the EPIC chart and I placed a copy of it in the ghost chart . Edd said that he would be transporting her home if that was where she ended up going af ter discharge. CM please follow closely to make discharge plans please. Electronically sign ed by: Erika Willis RN 09/02/2015 17:12 lan of Care - Sabrina Thomas RN - 09/02/2015 6:00 AM PDTProblem: Patient Care Overview (Adult) Goal: Care Team Goals & Evaluation PROBLEM-RELATED GOALS: Shaila will remain free of seizure activity through 09/06/2015. Shaila s pain will be managed to <4/10 by 09/06/2015. Shaila s electrolyte levels will improve by 09/06/2015. Shaila will remain alert and oriented through 09/06/2015. STRATEGY TO ACHIEVE GOALS: Maintain seizure precautions. Administer anti-seizure medications per order. Monitor for se izure activity and perform CIWA evaluation as ordered. Assess pain level at frequent intervals. Administer PRN medications as appropriate. Encoura ge repositioning as tolerated by patient. Assist w/ paracentesis procedure. Monitor labs. Administer electrolyte replacement as ordered. Assess orientation at regular intervals. Use CIWA protocol at regular intervals. Administer lactulose and other medications as ordered. RESTRAINT-RELATED GOALS: STRATEGIES TO ACHIEVE RESTRAINT GOALS: Goal Evaluation: SD: A & O x 4, but very tired. CIWA 3-14. Ativan given x 1. SBP 150's, HR 110-130 ST, othe r VSS. Room air. Intermittent nausea, Zofran given x 1 w/ good relief. Oxycodone given x 1 f or abdominal pain w/ minimal relief. Lactulose, and multiple IV meds. Multiple bowel movemen ts overnight, negative for occult blood. Clear liquid diet w/ 1800 ml fluid restriction. [employer] labs pending. Anticipate paracentesis today. documented in this encounter Plan of Treatment Not on filedocumented as of this encounter Procedures + +--------+ + + + | Procedure Name | Priori | Date/Time | Associated Diagnosis | Comments | | | ty | | | | + +--------+ + + + | MEDICAL CYTOLOGY | Routin | 11/01/2016 | | Results for this | | | e | 12:00 AM | | procedure are in the | | | | PDT | | results section. | + +--------+ + + + | MAGNESIUM | Routin | 09/10/2015 | | Results for this | | | e | 9:27 AM | | procedure are in the | | | | PDT | | results section. | + +--------+ + + + | CBC WITH | Routin | 09/10/2015 | | Results for this | | DIFFERENTIAL | e | 6:04 AM | | procedure are in the | | | | PDT | | results section. | + +--------+ + + + | BASIC METABOLIC | Routin | 09/10/2015 | | Results for this | | PANEL | e | 6:04 AM | | procedure are in the | | | | PDT | | results section. | + +--------+ + + + | PRODUCT: RBC | Routin | 09/09/2015 | | Results for this | | | e | 7:52 AM | | procedure are in the | | | | PDT | | results section. | + +--------+ + + + | CBC WITH | Routin | 09/09/2015 | | Results for this | | DIFFERENTIAL | e | 7:18 AM | | procedure are in the | | | | PDT | | results section. | + +--------+ + + + | MAGNESIUM | Routin | 09/09/2015 | | Results for this | | | e | 7:18 AM | | procedure are in the | | | | PDT | | results section. | + +--------+ + + + | BASIC METABOLIC | Routin | 09/09/2015 | | Results for this | | PANEL | e | 7:18 AM | | procedure are in the | | | | PDT | | results section. | + +--------+ + + + | CT GUIDED BIOPSY | Routin | 09/08/2015 | | Results for this | | LIVER | e | 1:16 PM | | procedure are in the | | | | PDT | | results section. | + +--------+ + + + | DI: CT | | 09/08/2015 | EVAL FOR HCC | | | | | 11:50 AM | | | | | | PDT | | | + +--------+ + + + | PTT | Routin | 09/08/2015 | | Results for this | | | e | 6:14 AM | | procedure are in the | | | | PDT | | results section. | + +--------+ + + + | PROTIME INR | Routin | 09/08/2015 | | Results for this | | | e | 6:14 AM | | procedure are in the | | | | PDT | | results section. | + +--------+ + + + | CBC WITH | Routin | 09/08/2015 | | Results for this | | DIFFERENTIAL | e | 6:14 AM | | procedure are in the | | | | PDT | | results section. | + +--------+ + + + | BASIC METABOLIC | Routin | 09/08/2015 | | Results for this | | PANEL | e | 6:14 AM | | procedure are in the | | | | PDT | | results section. | + +--------+ + + + | SURGICAL PATHOLOGY | Routin | 09/08/2015 | | Results for this | | EXAM | e | 12:00 AM | | procedure are in the | | | | PDT | | results section. | + +--------+ + + + | ALPHA FETOPROTEIN, | Routin | 09/07/2015 | | Results for this | | TUMOR MARKER | e | 5:41 AM | | procedure are in the | | | | PDT | | results section. | + +--------+ + + + | PTT | Routin | 09/07/2015 | | Results for this | | | e | 5:41 AM | | procedure are in the | | | | PDT | | results section. | + +--------+ + + + | PROTIME INR | Routin | 09/07/2015 | | Results for this | | | e | 5:41 AM | | procedure are in the | | | | PDT | | results section. | + +--------+ + + + | CBC WITH | Routin | 09/07/2015 | | Results for this | | DIFFERENTIAL | e | 5:41 AM | | procedure are in the | | | | PDT | | results section. | + +--------+ + + + | COMPREHENSIVE | Routin | 09/07/2015 | | Results for this | | METABOLIC PANEL | e | 5:41 AM | | procedure are in the | | | | PDT | | results section. | + +--------+ + + + | PRODUCT: RBC | Routin | 09/06/2015 | | Results for this | | | e | 7:15 PM | | procedure are in the | | | | PDT | | results section. | + +--------+ + + + | CT ABDOMEN PELVIS W | Routin | 09/06/2015 | | Results for this | | WO CONTRAST | e | 4:19 PM | | procedure are in the | | | | PDT | | results section. | + +--------+ + + + | CBC WITH | Routin | 09/06/2015 | | Results for this | | DIFFERENTIAL | e | 5:34 AM | | procedure are in the | | | | PDT | | results section. | + +--------+ + + + | COMPREHENSIVE | Routin | 09/06/2015 | | Results for this | | METABOLIC PANEL | e | 5:34 AM | | procedure are in the | | | | PDT | | results section. | + +--------+ + + + | TYPE AND SCREEN | Routin | 09/05/2015 | | Results for this | | | e | 8:57 PM | | procedure are in the | | | | PDT | | results section. | + +--------+ + + + | PRODUCT: RBC | Routin | 09/05/2015 | | Results for this | | | e | 7:17 AM | | procedure are in the | | | | PDT | | results section. | + +--------+ + + + | PRODUCT: RBC | Routin | 09/05/2015 | | Results for this | | | e | 7:17 AM | | procedure are in the | | | | PDT | | results section. | + +--------+ + + + | CBC WITH | Routin | 09/05/2015 | | Results for this | | DIFFERENTIAL | e | 4:49 AM | | procedure are in the | | | | PDT | | results section. | + +--------+ + + + | AMMONIA | Routin | 09/05/2015 | | Results for this | | | e | 4:49 AM | | procedure are in the | | | | PDT | | results section. | + +--------+ + + + | BASIC METABOLIC | Routin | 09/05/2015 | | Results for this | | PANEL | e | 4:49 AM | | procedure are in the | | | | PDT | | results section. | + +--------+ + + + | CBC WITH | Routin | 09/04/2015 | | Results for this | | DIFFERENTIAL | e | 4:28 AM | | procedure are in the | | | | PDT | | results section. | + +--------+ + + + | MAGNESIUM | Routin | 09/04/2015 | | Results for this | | | e | 4:28 AM | | procedure are in the | | | | PDT | | results section. | + +--------+ + + + | AMMONIA | Add-On | 09/04/2015 | | Results for this | | | | 4:28 AM | | procedure are in the | | | | PDT | | results section. | + +--------+ + + + | COMPREHENSIVE | Routin | 09/04/2015 | | Results for this | | METABOLIC PANEL | e | 4:28 AM | | procedure are in the | | | | PDT | | results section. | + +--------+ + + + | US GUIDED | Routin | 09/03/2015 | | Results for this | | PARACENTESIS | e | 4:49 PM | | procedure are in the | | | | PDT | | results section. | + +--------+ + + + | YURI, AFChanning SMEAR | Routin | 09/03/2015 | | Results for this | | | e | 4:36 PM | | procedure are in the | | | | PDT | | results section. | + +--------+ + + + | CBC WITH | Routin | 09/03/2015 | | Results for this | | DIFFERENTIAL | e | 4:23 AM | | procedure are in the | | | | PDT | | results section. | + +--------+ + + + | AMMONIA | Routin | 09/03/2015 | | Results for this | | | e | 4:23 AM | | procedure are in the | | | | PDT | | results section. | + +--------+ + + + | COMPREHENSIVE | Routin | 09/03/2015 | | Results for this | | METABOLIC PANEL | e | 4:23 AM | | procedure are in the | | | | PDT | | results section. | + +--------+ + + + | MEDICAL CYTOLOGY | Routin | 09/03/2015 | | Results for this | | | e | 12:00 AM | | procedure are in the | | | | PDT | | results section. | + +--------+ + + + | US GUIDED | Routin | 09/02/2015 | | Results for this | | PARACENTESIS | e | 10:04 AM | | procedure are in the | | | | PDT | | results section. | + +--------+ + + + | CULTURE, BODY FLUID, | Routin | 09/02/2015 | | Results for this | | AEROBE | e | 9:47 AM | | procedure are in the | | | | PDT | | results section. | + +--------+ + + + | LACTATE | Routin | 09/02/2015 | | Results for this | | DEHYDROGENASE, BODY | e | 9:47 AM | | procedure are in the | | FLUID | | PDT | | results section. | + +--------+ + + + | CULTURE, BODY FLUID, | Routin | 09/02/2015 | | Results for this | | ANAEROBE | e | 9:47 AM | | procedure are in the | | | | PDT | | results section. | + +--------+ + + + | CULTURE, AFB SMEAR | Routin | 09/02/2015 | | Results for this | | | e | 9:47 AM | | procedure are in the | | | | PDT | | results section. | + +--------+ + + + | CELL COUNT WITH | Routin | 09/02/2015 | | Results for this | | DIFFERENTIAL, BODY | e | 9:47 AM | | procedure are in the | | FLUID | | PDT | | results section. | + +--------+ + + + | PROTEIN, BODY FLUID | Routin | 09/02/2015 | | Results for this | | | e | 9:47 AM | | procedure are in the | | | | PDT | | results section. | + +--------+ + + + | GLUCOSE, BODY FLUID | Routin | 09/02/2015 | | Results for this | | | e | 9:47 AM | | procedure are in the | | | | PDT | | results section. | + +--------+ + + + | HIV 1 AND 2 AB | Routin | 09/02/2015 | | Results for this | | SCREEN REFLEXIVE | e | 5:35 AM | | procedure are in the | | | | PDT | | results section. | + +--------+ + + + | VITAMIN B-12 | Routin | 09/02/2015 | | Results for this | | | e | 5:35 AM | | procedure are in the | | | | PDT | | results section. | + +--------+ + + + | HEPATITIS A, B, C | Routin | 09/02/2015 | | Results for this | | PANEL, REFLEX | e | 5:35 AM | | procedure are in the | | | | PDT | | results section. | + +--------+ + + + | IRON AND TRANSFERRIN | Routin | 09/02/2015 | | Results for this | | | e | 5:35 AM | | procedure are in the | | | | PDT | | results section. | + +--------+ + + + | PROTIME INR | Routin | 09/02/2015 | | Results for this | | | e | 5:35 AM | | procedure are in the | | | | PDT | | results section. | + +--------+ + + + | RETIC COUNT | Routin | 09/02/2015 | | Results for this | | | e | 5:35 AM | | procedure are in the | | | | PDT | | results section. | + +--------+ + + + | CBC WITH | Routin | 09/02/2015 | | Results for this | | DIFFERENTIAL | e | 5:35 AM | | procedure are in the | | | | PDT | | results section. | + +--------+ + + + | MAGNESIUM | Routin | 09/02/2015 | | Results for this | | | e | 5:35 AM | | procedure are in the | | | | PDT | | results section. | + +--------+ + + + | FOLATE | Routin | 09/02/2015 | | Results for this | | | e | 5:35 AM | | procedure are in the | | | | PDT | | results section. | + +--------+ + + + | FERRITIN | Routin | 09/02/2015 | | Results for this | | | e | 5:35 AM | | procedure are in the | | | | PDT | | results section. | + +--------+ + + + | COMPREHENSIVE | Routin | 09/02/2015 | | Results for this | | METABOLIC PANEL | e | 5:35 AM | | procedure are in the | | | | PDT | | results section. | + +--------+ + + + | URINALYSIS WITH | Routin | 09/02/2015 | | Results for this | | MICROSCOPIC WITH | e | 1:57 AM | | procedure are in the | | CULTURE IF INDICATED | | PDT | | results section. | + +--------+ + + + | HCG, URINE, QUAL | Routin | 09/02/2015 | | Results for this | | | e | 1:57 AM | | procedure are in the | | | | PDT | | results section. | + +--------+ + + + | CULTURE, URINE | Routin | 09/02/2015 | | Results for this | | | e | 1:57 AM | | procedure are in the | | | | PDT | | results section. | + +--------+ + + + | MEDICAL CYTOLOGY | Routin | 09/02/2015 | | Results for this | | | e | 12:00 AM | | procedure are in the | | | | PDT | | results section. | + +--------+ + + + | OCCULT BLOOD, STOOL, | Routin | 09/01/2015 | | Results for this | | SPECIMEN 3 | e | 9:41 PM | | procedure are in the | | | | PDT | | results section. | + +--------+ + + + | XR CHEST AP PORTABLE | Routin | 09/01/2015 | | Results for this | | | e | 7:18 PM | | procedure are in the | | | | PDT | | results section. | + +--------+ + + + | CBC WITH | Routin | 09/01/2015 | | Results for this | | DIFFERENTIAL | e | 7:08 PM | | procedure are in the | | | | PDT | | results section. | + +--------+ + + + | MAGNESIUM | Routin | 09/01/2015 | | Results for this | | | e | 7:08 PM | | procedure are in the | | | | PDT | | results section. | + +--------+ + + + | AMMONIA | Routin | 09/01/2015 | | Results for this | | | e | 7:08 PM | | procedure are in the | | | | PDT | | results section. | + +--------+ + + + | COMPREHENSIVE | Routin | 09/01/2015 | | Results for this | | METABOLIC PANEL | e | 7:08 PM | | procedure are in the | | | | PDT | | results section. | + +--------+ + + + | TYPE AND SCREEN | Routin | 09/01/2015 | | Results for this | | | e | 7:06 PM | | procedure are in the | | | | PDT | | results section. | + +--------+ + + + | CULTURE, MRSA | Routin | 09/01/2015 | | Results for this | | | e | 5:31 PM | | procedure are in the | | | | PDT | | results section. | + +--------+ + + + | ECG - EXTERNAL SCAN | | 09/01/2015 | | Results for this | | | | 12:00 AM | | procedure are in the | | | | PDT | | results section. | + +--------+ + + + | DIAGNOSTIC REPORT - | | 03/31/2015 | | Results for this | | EXTERNAL SCAN | | 12:00 AM | | procedure are in the | | | | PST | | results section. | + +--------+ + + + documented in this encounter Results Medical Cytology (11/01/2016 12:00 AM PDT) + + | Specimen | + + | | + + + + + | Narrative | Performed At | + + + | ORDERING PHYSICIAN: Calderon MADERA, Andres Pardo PATIENT NAME: HUY | [facility] | | SHAILA ALMEIDA GENDER: F : 1970 SPECIMEN(S): A | [facility] | | ASCITES FLUID GROSS DESCRIPTION: 20 ML OF CLOUDY, YELLOW FLUID | | | CLINICAL HISTORY: POSSIBLE SPONTANEOUS BACTERIAL PERITONITIS, SEVERE | | | ASCITES LABORATORY PREPARATIONS: 1 MONOLAYER, 1 CYTOLOGY CELL | | | BLOCK CYTOLOGIC INTERPRETATION: Ascites: Negative for malignant | | | cells. DESCRIPTION: The preparations contain mesothelial cells, rare | | | inflammatory cells, and acellular proteinaceous material. Atypical | | | cytologic findings are not encountered. SPECIMEN ADEQUACY: | | | Satisfactory for Evaluation PERFORMING LABORATORY: Technical | | | preparation was performed by [facility] [id number] | | | [address] [place] [address] and [email or web address], [place] | | | [address] [place] [address]. Professional | | | interpretation was performed by [facility] | | | Center Branch - [address] [place] [address] (Medical | | | Director: Bebeto Ruiz M.D.; [facility]#:[id number]).8 Diagnostician: | | | Gladis Johnson M.S., KAVIN(ASCP), [facility] Benzene Washer Operator | | | Diagnostician: Bebeto Ruiz MD Pathologist Electronically | | | Signed 11/03/2016 | | + + + + +---------+ + + | Performing | Address | City/State/Zipcode | Phone Number | | Organization | | | | + +---------+ + + | [facility] | | | | | [facility] | | | | + +---------+ + + Magnesium (09/10/2015 9:27 AM PDT) + +---------+ + + + | Component | Value | Ref Range | Performed | Pathologist | | | | | At | Signature | + +---------+ + + + | Magnesium | 1.6 (L) | 1.8 - 2.5 mg/dL | [facility] | | | | | | [facility] | | | | | [facility] | | | | | | CENTER - | | | | | | LABORATORY | | + +---------+ + + + + + | Specimen | + + | Blood - Entire right | | hand (body | | structure) | + + + + + + + | Performing | Address | City/State/Zipcode | Phone Number | | Organization | | | | + + + + + | [facility] | [address] | [place] | [phone] | | [facility] | | [address] | | | - LABORATORY | | | | + + + + + CBC with Differential (09/10/2015 6:04 AM PDT) + + + + + + | Component | Value | Ref Range | Performed | Pathologist | | | | | At | Signature | + + + + + + | White Blood | 3.5 (L) | 4.0 - 11.0 K/uL | [facility] | | | Cells | | | [facility] | | | | | | MEDICAL | | | | | | CENTER - | | | | | | LABORATORY | | + + + + + + | Red Blood | 2.73 (L) | 3.70 - 5.20 | [facility] | | | Cells | | M/uL | [facility] | | | | | | MEDICAL | | | | | | CENTER - | | | | | | LABORATORY | | + + + + + + | Hemoglobin | 8.3 (L) | 11.5 - 16.0 | [facility] | | | | | g/dL | [facility] | | | | | | MEDICAL | | | | | | CENTER - | | | | | | LABORATORY | | + + + + + + | Hematocrit | 24.9 (L) | 34.0 - 47.0 % | [facility] | | | | | | [facility] | | | | | | MEDICAL | | | | | | CENTER - | | | | | | LABORATORY | | + + + + + + | MCV | 91.4 | 83.0 - 101.0 fL | [facility] | | | | | | [facility] | | | | | | MEDICAL | | | | | | CENTER - | | | | | | LABORATORY | | + + + + + + | MCH | 30.3 | 28.0 - 35.0 pg | [facility] [...] + + + + | RDW-CV | 17.6 (H) | <15.0 % | [facility] | | | | | | [facility] | | | | | | MEDICAL | | | | | | CENTER - | | | | | | LABORATORY | | + + + + + + | Platelet | 141 | 140 - 440 K/uL | [facility] [...] + + + + | % | 50.7 | 45.0 - 82.0 % | [facility] | | | Neutrophils | | | [facility] | | | | | | MEDICAL | | | | | | CENTER - | | | | | | LABORATORY | | + + + + + + | % | 19.8 (L) | 20.0 - 45.0 % | [facility] | | | Lymphocytes | | | [facility] | | | | | | MEDICAL | | | | | | CENTER - | | | | | | LABORATORY | | + + + + + + | % Monocytes | 19.8 (H) | 4.0 - 12.0 % | [facility] | | | | | | [facility] | | | | | | MEDICAL | | | | | | CENTER - | | | | | | LABORATORY | | + + + + + + | % | 6.8 (H) | 0.0 - 5.0 % | [facility] | | | Eosinophils | | | [facility] | | | | | | MEDICAL | | | | | | CENTER - | | | | | | LABORATORY | | + + + + + + | % Basophils | 2.9 (H) | 0.0 - 1.0 % | [facility] | | | | | | [facility] | | | | | | MEDICAL | | | | | | CENTER - | | | | | | LABORATORY | | + + + + + + | Absolute | 1.80 | 1.80 - 8.50 | [facility] | | | Neutrophils | | K/uL | [facility] | | | | | | MEDICAL | | | | | | CENTER - | | | | | | LABORATORY | | + + + + + + | Absolute | 0.70 | 0.60 - 3.20 | [facility] | | | Lymphocytes | | K/uL | [facility] | | | | | | MEDICAL | | | | | | CENTER - | | | | | | LABORATORY | | + + + + + + | Absolute | 0.70 | 0.00 - 1.00 | [facility] | | | Monocytes | | K/uL | [facility] | | | | [...] [address] | [place] | [phone] | | [facility] | | [address] | | | - LABORATORY | | | | + + + + + Basic Metabolic Panel (09/10/2015 6:04 AM PDT) + + + + + [...] + + + + | K | 3.7 | 3.5 - 5.1 | [facility] | [...] + + + + | CO2 | 20 (L) | 24 - 31 mmol/L | [...] + + + + | Glucose | 84 | 70 - 109 mg/dL | [facility] [...] 0.51 (L) | 0.60 - 1.30 | [facility] | | | | | mg/dL | [facility] | | | | | | MEDICAL | | | | | | CENTER - | | | | | | LABORATORY | | + + + + + + | eGFR, | >60Comment: GLOMERULAR | >=60 | [facility] | | | non- | FILTRATION | mL/min/1.73m2 | [facility] | | | [place] | RATE,ESTIMATED | | MEDICAL | | | | mL/min/1.55x7Fsed than | | CENTER - | | [...] + + + + | Calcium | 7.0 (L) | 8.3 - 10.5 | [facility] [...] + | [facility] | [address] | [place] | [phone] | | [facility] | | [address] | | | - LABORATORY | | | | + + + + + PRODUCT: RBC (09/09/2015 7:52 AM PDT) + + + + + + | Component | Value | Ref Range | Performed | Pathologist | | | | | At | Signature | + + + + + + | Product | RBC Leukocytes Reduced | | [facility] | | | Code | | | [facility] | | | | | | MEDICAL | | | | | | CENTER - | | | | | | BLOOD BANK | | + + + + + + | UNIT # | [id number] | | [facility] | | | | | | [facility] | | | | | | MEDICAL | | | | | | CENTER - | | | | | | BLOOD BANK | | + + + + + + | UNIT ABO | O | | [facility] | | | | | | [facility] | | | | | | MEDICAL | | | | | | CENTER - | | | | | | BLOOD BANK | | + + + + + + | UNIT RH | POS | | [facility] | | | | | | [facility] | | | | | | MEDICAL | | | | | | CENTER - | | | | | | BLOOD BANK | | + + + + + + | CROSSMATCH | Compatible | | [facility] | | | INTERP | | | [facility] | | | | | | [facility] | | | | | | CENTER - | | | | | | BLOOD BANK | | + + + + + + | Unit Status | Returned | | [facility] | | | | | | [facility] | | | | | | MEDICAL | | | | | | CENTER - | | | | | | BLOOD BANK | | + + + + + + + + | Specimen | + + | | + + + + + + + | Performing | Address | City/State/Zipcode | Phone Number | | Organization | | | | + + + + + | [facility] | [address] | [place] | | | [facility] | | [address] | | | - BLOOD BANK | | | | + + + + + Magnesium (09/09/2015 7:18 AM PDT) + +---------+ + + + | Component | Value | Ref Range | Performed | Pathologist | | | | | At | Signature | + +---------+ + + + | Magnesium | 1.0 (L) | 1.8 - 2.5 mg/dL | [facility] | | | | [...] [address] | [place] | [phone] | | [facility] | | [address] | | | - LABORATORY | | | | + + + + + Basic Metabolic Panel (09/09/2015 7:18 AM PDT) + + + + + + | Component | Value | Ref Range | Performed | Pathologist | | | | | At | Signature | + + + + + + | Na | 131 (L) | 136 - 149 | [facility] | | | | | mmol/L | [facility] | | | | | | MEDICAL | | | | | | CENTER - | | | | | | LABORATORY | | + + + + + + | K | 3.3 (L) | 3.5 - 5.1 | [facility] | | | | | mmol/L | [facility] | | | | | | MEDICAL | | | | | | CENTER - | | | | | | LABORATORY | | + + + + + + | Cl | 107 | 98 - 109 mmol/L | [facility] [...] + + + | Anion Gap | 3 | 3 - 16 mmol/L | [facility] | | | | | | [facility] | | | | | | MEDICAL | | | | | | CENTER - | | | | | | LABORATORY | | + + + + + + | Glucose | 88 | 70 - 109 mg/dL | [facility] | | | | | | [facility] | | | | | | MEDICAL | | | | | | CENTER - | | | | | | LABORATORY | | + + + + + + | BUN | 6 (L) | 7 - 18 mg/dL | [facility] | | | | | | [facility] | | | | | | MEDICAL | | | | | | CENTER - | | | | | | LABORATORY | | + + + + + + | Creatinine | 0.58 (L) | 0.60 - 1.30 | [facility] [...] mL/min/1.73m2 | [facility] | | | [place] | RATE,ESTIMATED | | MEDICAL | | | | mL/min/1.89y8Gdci than | | CENTER - | | [...] + + + + | Calcium | 6.9 (L) | 8.3 - 10.5 | [facility] | | | | | mg/dL | [facility] | | | | | | MEDICAL | | | | | | CENTER - | | | | | | LABORATORY | | + + + + + + | BUN/Creatin | 10.3 | | [facility] | | | ine Ratio | | | [facility] | [...] | + + + + + | [facility] | [address] | [place] | [phone] | | [facility] | | [address] | | | - LABORATORY | | | | + + + + + CBC with Differential (09/09/2015 7:18 AM PDT) + + + + + + | Component | Value | Ref Range | Performed | Pathologist | | | | | At | Signature | + + + + + + | White Blood | 4.1 | 4.0 - 11.0 K/uL | [facility] | | | Cells | | | [facility] | | | | | | MEDICAL | | | | | | CENTER - | | | | | | LABORATORY | | + + + + + + | Red Blood | 2.67 (L) | 3.70 - 5.20 | [facility] | | | Cells | | M/uL | [facility] | | | | | | MEDICAL | | | | | | CENTER - | | | | | | LABORATORY | | + + + + + + | Hemoglobin | 8.1 (L) | 11.5 - 16.0 | [facility] | | | | | g/dL | [facility] | | | | | | MEDICAL | | | | | | CENTER - | | | | | | LABORATORY | | + + + + + + | Hematocrit | 24.2 (L) | 34.0 - 47.0 % | [facility] | | | | | | [facility] | | | | | | MEDICAL | | | | | | CENTER - | | | | | | LABORATORY | | + + + + + + | MCV | 90.7 | 83.0 - 101.0 fL | [facility] | | | | | | [facility] | | | | | | MEDICAL | | | | | | CENTER - | | | | | | LABORATORY | | + + + + + + | MCH | 30.3 | 28.0 - 35.0 pg | [facility] | | | | | | [facility] | | | | | | MEDICAL | | | | | | CENTER - | | | | | | LABORATORY | | + + + + + + | MCHC | 33.4 | 32.0 - 36.0 | [facility] | | | | | g/dL | [facility] | | | | | | MEDICAL | | | | | | CENTER - | | | | | | LABORATORY | | + + + + + + | RDW-CV | 17.8 (H) | <15.0 % | [facility] | | | | | | [facility] | | | | | | MEDICAL | | | | | | CENTER - | | | | | | LABORATORY | | + + + + + + | Platelet | 167 | 140 - 440 K/uL | [facility] | | | Count | | | [facility] | | | | | | MEDICAL | | | | | | CENTER - | | | | | | LABORATORY | | + + + + + + | MPV | 7.8 | fL | [facility] | | | | | | [facility] | | | | | | MEDICAL | | | | | | CENTER - | | | | | | LABORATORY | | + + + + + + | % | 53.2 | 45.0 - 82.0 % | [facility] | | | Neutrophils | | | [facility] | | | | | | MEDICAL | | | | | | CENTER - | | | | | | LABORATORY | | + + + + + + | % | 17.9 (L) | 20.0 - 45.0 % | [facility] | | | Lymphocytes | | | [facility] | | | | | | MEDICAL | | | | | | CENTER - | | | | | | LABORATORY | | + + + + + + | % Monocytes | 17.9 (H) | 4.0 - 12.0 % | [facility] | | | | | | [facility] | | | | | | MEDICAL | | | | | | CENTER - | | | | | | LABORATORY | | + + + + + + | % | 7.0 (H) | 0.0 - 5.0 % | [facility] | | | Eosinophils | | | [facility] | | | | | | MEDICAL | | | | | | CENTER - | | | | | | LABORATORY | | + + + + + + | % Basophils | 4.0 (H) | 0.0 - 1.0 % | [facility] | | | | | | [facility] | | | | | | MEDICAL | | | | | | CENTER - | | | | | | LABORATORY | | + + + + + + | Absolute | 2.20 | 1.80 - 8.50 | [facility] | | | Neutrophils | | K/uL | [facility] | | | | | | MEDICAL | | | | | | CENTER - | | | | | | LABORATORY | | + + + + + + | Absolute | 0.70 | 0.60 - 3.20 | [facility] | | | Lymphocytes | | K/uL | [facility] | | | | | | MEDICAL | | | | | | CENTER - | | | | | | LABORATORY | | + + + + + + | Absolute | 0.70 | 0.00 - 1.00 | [facility] | | | Monocytes | | K/uL | [facility] | | | | | | MEDICAL | | | | | | CENTER - | | | | | | LABORATORY | | + + + + + + | Absolute | 0.30 | 0.00 - 0.40 | [facility] | | | Eosinophils | | K/uL | [facility] | | | | | | MEDICAL | | | | | | CENTER - | | | | | | LABORATORY | | + + + + + + | Absolute | 0.20 (H) | 0.00 - 0.10 | [facility] | [...] ST. | [address] | [place], [place] | [phone] | | [facility] | | [id number] | | | - LABORATORY | | | | + + + + + CT Guided Biopsy Liver (09/08/2015 1:16 PM PDT) + + | Specimen | + + | | + + + + + | Narrative | Performed At | + + + | CT GUIDED BIOPSY LIVER. 09/08/2015 11:43 AM HISTORY: eval for | [facility] | | HCC. COMPARISON: CT abdomen pelvis 09/06/2015 PROCEDURE: | | | Risks, benefits, and alternatives to the procedure were discussed | | | with the patient, who signed consent following an opportunity to ask | | | questions. The patient's name, date of , and procedure site | | | were confirmed prior to proceeding. The patient's H & P, which had | | | been completed within the last 30 days, was reviewed and assessed for | | | any recent changes in health and to reconfirm need for biopsy | | | procedure. No significant changes in the patient's health or | | | physical exam were noted. The patient was prepped and draped in | | | usual sterile fashion. Local anesthesia was provided using 1% | | | buffered Lidocaine. Conscious sedation was also provided using | | | Fentanyl and Versed, administered by a nurse who was present during | | | the entire procedure. Using CT guidance, two core biopsies were | | | obtained of the lesion of interest in the right lobe of the liver. | | | The specimen tissue was then placed immediately into formalin to be | | | sent to pathology for further evaluation. A repeat of the CT scan | | | was performed following each biopsy to assess for possible | | | hemorrhage. The biopsy device was then removed. Hemostasis was | | | achieved at the skin surface. The patient tolerated the procedure | | | well, without immediate complication. The patient was transferred | | | to recovery in stable condition. Patient will remain in a right | | | decubitus position for 1 hour, and then be discharged in 2 hours if | | | the patient meets criteria. Nursing staff will notify of any | | | complaints or complications. FINDINGS: Biopsy introducer | | | needle is seen within the liver corresponding to the area of | | | enhancing contour abnormality seen at the periphery of the right lobe | | | of the liver on the prior study from 09/06/2015. IMPRESSION - | | | Successful CT-guided biopsy of the liver, as described above. | | | Dictated and Signed by: Michael Taylor MD Electronically signed: | | | 09/08/2015 1:37 PM | | + + + + + | Procedure Note | + + | Edgardo Dean Results In - 09/08/2015 1:[address] GUIDED BIOPSY LIVER. 09/08/2015 11:43 | | AMHISTORY: eval for HCC.COMPARISON: CT abdomen pelvis 09/06/2015PROCEDURE: Risks, | | benefits, and alternatives to the procedure were discussedwith the patient, who signed | | consent following an opportunity to ask questions. The patient's name, date of , | | and procedure site were confirmed prior toproceeding. The patient's H & P, which had | | been completed within the last 30days, was reviewed and assessed for any recent changes | | in health and toreconfirm need for biopsy procedure. No significant changes in the | | patient'shealth or physical exam were noted. The patient was prepped and draped in | | usualsterile fashion. Local anesthesia was provided using 1% buffered Lidocaine. | | Conscious sedation was also provided using Fentanyl and Versed, administered bya nurse | | who was present during the entire procedure. Using CT guidance, twocore biopsies were | | obtained of the lesion of interest in the right lobe of theliver. The specimen tissue | | was then placed immediately into formalin to be sentto pathology for further evaluation. | | A repeat of the CT scan was performedfollowing each biopsy to assess for possible | | hemorrhage. The biopsy device wasthen removed. Hemostasis was achieved at the skin | | surface. The patienttolerated the procedure well, without immediate complication. The | | patient wastransferred to recovery in stable condition. Patient will remain in a | | rightdecubitus position for 1 hour, and then be discharged in 2 hours if the | | patientmeets criteria. Nursing staff will notify of any complaints or complications. | | FINDINGS:Biopsy introducer needle is seen within the liver corresponding to the area | | ofenhancing contour abnormality seen at the periphery of the right lobe of theliver on | | the prior study from 09/06/2015.IMPRESSION -Successful CT-guided biopsy of the liver, as | | described above.Dictated and Signed by: Michael Taylor MD Electronically signed: | | 09/08/2015 1:37 PM | |meets criteria. Nursing staff will notify of any complaints or complications. | | | |FINDINGS: | |Biopsy introducer needle is seen within the liver corresponding to the area of | |enhancing contour abnormality seen at the periphery of the right lobe of the | |liver on the prior study from 09/06/2015. | | | |IMPRESSION - | |Successful CT-guided biopsy of the liver, as described above. | | | |Dictated and Signed by: Michael Taylor MD | | Electronically signed: 09/08/2015 1:37 PM | + + + +---------+ + + | Performing | Address | City/State/Zipcode | Phone Number | | Organization | | | | + +---------+ + + | [facility] | | | | + +---------+ + + PTT (09/08/2015 6:14 AM PDT) + +--------+ + + + | Component | Value | Ref Range | Performed | Pathologist | | | | | At | Signature | + +--------+ + + + | aPTT | 37 (H) | 22 - 36 seconds | [facility] | | | | | [...] [address] | [place] | [phone] | | [facility] | | [address] | | | - LABORATORY | | | | + + + + + Protime INR (09/08/2015 6:14 AM PDT) + + + + + + | Component | Value | Ref Range | Performed | Pathologist | | | | | At | Signature | + + + + + + | Prothrombin | 18.8 (H) | 11.3 - 13.9 | [facility] | | | Time | | seconds | [facility] | | | | | [facility] | | | | | | [facility] - | | | | | | LABORATORY | | + + + + + + | INR | 1.51 (H)Comment: Usual | 0.90 - 1.10 | [facility] | | | | Oral Anticoagulation | | [facility] | | | | Range: 2.0 [...] ST[address] | [address] | [place], [place] | [phone] | | [facility] | | [address] | | | - LABORATORY | | | | + + + + + Basic Metabolic Panel (09/08/2015 6:14 AM PDT) + + + + + + | Component | Value | Ref Range | Performed | Pathologist | | | | | At | Signature | + + + + + + | Na | 132 (L) | 136 - 149 | [facility] | | | | | mmol/L | [facility] | | | [facility] | [facility] | | | | | | CENTER - | | | | | | LABORATORY | | + + + + + + | K | 3.3 (L) | 3.5 - 5.1 | [facility] [...] + + + + | Glucose | 85 | 70 - 109 mg/dL | [facility] | | | | | | [facility] | | | | | [facility] | | | | | | CENTER - | | | | | | LABORATORY | | + + + + + + | BUN | 10 | 7 - 18 mg/dL | [facility] | | | | | | [facility] | | | | | | [facility] | | | | | | CENTER - | | | | | | LABORATORY | | + + + + + + | Creatinine | 0.65 | 0.60 - 1.30 | [facility] | | | | | mg/dL | [facility] | | | | | [facility] | | | | | | CENTER - | | | | | | LABORATORY | | + + + + + + | eGFR, | >60Comment: GLOMERULAR | >=60 | [facility] | | | non- | FILTRATION | mL/min/1.73m2 | [facility] | | | [place] | RATE,ESTIMATED | | MEDICAL | | | | mL/min/1.43z4Asfr than | | CENTER - | | [...] + + + + | Calcium | 6.8 (L) | 8.3 - 10.5 | [facility] | | | | | mg/dL | [facility] | | | | | | MEDICAL | | | | | | CENTER - | | | | | | LABORATORY | | + + + + + + | BUN/Creatin | 15.4 | | [facility] | | | ine [...] [address] | [place] | [phone] | | [facility] | | [address] | | | - LABORATORY | | | | + + + + + CBC with Differential (09/08/2015 6:14 AM PDT) + + + + + + | Component | Value | Ref Range | Performed | Pathologist | | | | | At | Signature | + + + + + + | White Blood | 5.6 | 4.0 - 11.0 K/uL | [facility] | | | Cells | | | [facility] | | | | | | MEDICAL | | | | | | CENTER - | | | | | | LABORATORY | | + + + + + + | Red Blood | 2.78 (L) | 3.70 - 5.20 | [facility] | | | Cells | | M/uL | . [facility] | | | | | | MEDICAL | | | | | | CENTER - | | | | | | LABORATORY | | + + + + + + | Hemoglobin | 8.4 (L) | 11.5 - 16.0 | [facility] | | | | | g/dL | [facility] | | | | | | MEDICAL | | | | | | CENTER - | | | | | | LABORATORY | | + + + + + + | Hematocrit | 25.0 (L) | 34.0 - 47.0 % | [facility] | | | | | | [facility] | | | | | | MEDICAL | | | | | | CENTER - | | | | | | LABORATORY | | + + + + + + | MCV | 90.1 | 83.0 - 101.0 fL | [facility] | | | | | | [facility] | | | | | | MEDICAL | | | | | | CENTER - | | | | | | LABORATORY | | + + + + + + | MCH | 30.1 | 28.0 - 35.0 pg | [facility] | | | | | | [facility] | | | | | | MEDICAL | | | | | | CENTER - | | | | | | LABORATORY | | + + + + + + | MCHC | 33.4 | 32.0 - 36.0 | [facility] | | | | | g/dL | [facility] | | | | | | MEDICAL | | | | | | CENTER - | | | | | | LABORATORY | | + + + + + + | RDW-CV | 17.7 (H) | <15.0 % | [facility] | | | | | | [facility] | | | | | | MEDICAL | | | | | | CENTER - | | | | | | LABORATORY | | + + + + + + | Platelet | 168 | 140 - 440 K/uL | [facility] [...] + + + + | % | 60.6 | 45.0 - 82.0 % | [facility] | | | Neutrophils | | | [facility] | | | | | | MEDICAL | | | | | | CENTER - | | | | | | LABORATORY | | + + + + + + | % | 9.3 (L) | 20.0 - 45.0 % | [facility] | | | Lymphocytes | | | [facility] | | | | | | MEDICAL | | | | | | CENTER - | | | | | | LABORATORY | | + + + + + + | % Monocytes | 18.9 (H) | 4.0 - 12.0 % | [facility] | | | | | | [facility] | | | | | | MEDICAL | | | | | | CENTER - | | | | | | LABORATORY | | + + + + + + | % | 7.9 (H) | 0.0 - 5.0 % | [facility] | | | Eosinophils | | | [facility] | | | | | | MEDICAL | | | | | | CENTER - | | | | | | LABORATORY | | + + + + + + | % Basophils | 3.3 (H) | 0.0 - 1.0 % | [facility] | | | | | | [facility] | | | | | | MEDICAL | | | | | | CENTER - | | | | | | LABORATORY | | + + + + + + | Absolute | 3.40 | 1.80 - 8.50 | [facility] | [...] + + + + | Absolute | 1.00 | 0.00 - 1.00 | [facility] | | | Monocytes | | K/uL | [facility] | | | | | | MEDICAL | | | | | | CENTER - | | | | | | LABORATORY | | + + + + + + | Absolute | 0.40 | 0.00 - 0.40 | [facility] | | | Eosinophils | | K/uL | [facility] | | | | | | MEDICAL | | | | | | CENTER - | | | | | | LABORATORY | | + + + + + + | Absolute | 0.20 (H) | 0.00 - 0.10 | [facility] | [...] [address] | [place] | [phone] | | [facility] | | [address] | | | - LABORATORY | | | | + + + + + Surgical Pathology Exam (09/08/2015 12:00 AM PDT) + + | Specimen | + + | Soft tissue sample | | (specimen) | + + + + + | Narrative | Performed At | + + + | SPECIMEN(S): A LIVER NEEDLE BIOPSY SPECIMEN SOURCE: A. LIVER | [facility] | | NEEDLE BIOPSY CLINICAL HISTORY: CT-guided liver biopsy. FINAL | [facility] | | PATHOLOGIC DIAGNOSIS: Liver, needle core biopsy: - | | | Steatohepatitis with mild activity (grade 1 of 3 grades, Brunt | | | scoring system) and cirrhosis (stage 4 of 4 stages, Brunt scoring | | | system). COMMENT: The clinical concern for a hepatic mass lesion | | | is noted. The current sampling shows micronodular and macronodular | | | cirrhosis with no evidence for hemangioma, hepatocellular adenoma or | | | hepatocellular carcinoma. The findings are not diagnostic for | | | focal nodular hyperplasia, but this cannot be categorically excluded. | | | If malignancy remains a clinical consideration, the possibility | | | this sampling (although appearing generous in amount) may not be | | | fully factory representative should be considered. Noninvasive MRI studies | | | may help to further characterize the lesion if clinical concern | | | remains. Results discussed with Dr. Albert by Dr. More on | | | September 09 at 3:10 p.m. [facility]:C2NR GROSS DESCRIPTION: The specimen, | | | labeled and designated "Shaila Son, liver biopsy," is | | | received in formalin and consists of two cores of orange colored | | | tissue, 0.1 cm diameter and ranging from 2.6 to 2.7 cm in length. | | | All into (A1). yt:JVR:lap MICROSCOPIC EXAMINATION: The liver | | | biopsy consists of 2 cores of liver tissue that are 24 and 23 | | | millimeters long and are up to 0.7 mm wide. Portions of about 16 | | | portal areas are available for review. Hepatic architecture is | | | abnormal due to advanced fibrosis with nodules of hepatic parenchyma | | | surrounded by broad bands of fibrous tissue which is more pronounced | | | in one of the cores than the other. A patchy mild degree of | | | macrovesicular steatosis is present within the cirrhotic nodules. | | | Focal ballooning degeneration and neutrophilic satellitosis is seen | | | in areas of steatosis. Between the cirrhotic nodules, the fibrous | | | bands contain increased numbers of bile ducts consistent with areas of | | | parenchymal collapse. No bile ductular proliferation is seen. At | | | the edges of some of the nodules are areas of Felecia bodies and | | | ballooning degeneration. Inflammation in the fibrous regions is | | | predominantly lymphocytic. Neutrophilic satellitosis is associated | | | with Felecia bodies. There is no intracellular canalicular or bile | | | duct related cholestasis. There are no granulomas. To further | | | evaluate hepatic architecture and function, special stains are | | | performed with control tissues that react as expected. Results are | | | as follows: Iron stain: No accumulation of iron within | | | hepatocytes or Kupffer cells is found. PAS with diastase: | | | Diastase has removed glycogen showing no alpha-1 antitrypsin-type | | | cytoplasmic inclusions. Occasional macrophages containing | | | nonspecific diastase resistant debris are seen within the lobules as | | | well as portal regions Reticulum stain: The regenerative | | | nodules have cell plates that are generally one cell wide with some | | | expansion of the periphery. The lack central veins. There is | | | diffuse sinusoidal dilatation and some prominence of central veins | | | where observed. There is focal reticulin condensation involving | | | scarred central veins areas. Trichrome stain: Established | | | fibrosis surrounds cirrhotic hepatocellular nodules. There is | | | perivenular and acinar zone 3 pericellular fibrosis with areas of | | | ballooning degeneration and obliterative fibrosis of central veins. | | | In view of the clinical history of a radiographic mass lesion which | | | was the subject of this sample, immunostains are performed to further | | | characterize the hepatic cell population with the following | | | findings: CD34: Immunoreactive blood vessels are present as | | | expected within the areas of portal collapse between the cirrhotic | | | nodules. There is slight endothelialization at the periphery of the | | | nodules but this does not extend into the nodules (which would be | | | expected if the nodules were neoplastic). Cytokeratin 7: | | | Immunoreactive bile ducts are present in the fibrotic parenchyma | | | between the cirrhotic nodules and occasionally are present at the | | | edges of the nodules along with cytokeratin 7 cytoplasmic | | | immunoreactivity of peripheral hepatocytes. This partial | | | transformation to a ductular immunophenotype would not be expected for | | | neoplastic hepatocellular nodules. [facility] PERFORMING LABORATORY: | | | Tissue processing and slide preparation were performed by [employer] | | | [facility], [address] [place] [address], [address], [place] [address] | | | (Airline Ticket Agent: Bebeto Ruiz M.D.; CLIA#: [id number]). | | | Professional interpretation was performed by [employer] | | | [facility], [address] [place], | | | [place] [address] (Airline Ticket Agent: Jonny Ernandez M.D.; [facility]#: | | | [id number]). Diagnostician: Ana M Holm MD Pathologist | | | Diagnostician: Luis Miguel More MD Pathologist Electronically | | | Signed 09/10/2015 | | + + + + +---------+ + + | Performing | Address | City/State/Zipcode | Phone Number | | Organization | | | | + +---------+ + + | [facility] | | | | | [facility] | | | | + +---------+ + + Alpha Fetoprotein, Tumor Marker (09/07/2015 5:41 AM PDT) + + + + + + | Component | Value | Ref Range | Performed | Pathologist | | | | | At | Signature | + + + + + + | AFP Tumor | 2.6Comment: Reference | 0.6 - 6.6 ng/mL | [facility] | | | Marker | range applies to males | | [facility] | | | | and non | | | | | | females.Testing | | | | | | Performed: [place] | | | | | | [facility] | | | | | | [facility], [address], | | | | | | [place] [address] | | | | + + + + + + + + | Specimen | + + | Blood specimen | | (specimen) | + + + + + + + | Performing | Address | City/State/Zipcode | Phone Number | | Organization | | | | + + + + + | [facility] | [address] | [place] [address] | [phone] | + + + + + PTT (09/07/2015 5:41 AM PDT) + +--------+ + + + | Component | Value | Ref Range | Performed | Pathologist | | | | | At | Signature | + +--------+ + + + | aPTT | 37 (H) | 22 - 36 seconds | [facility] | | | | | [...] [address] | [place] | [phone] | | [facility] | | [address] | | | - LABORATORY | | | | + + + + + Protime INR (09/07/2015 5:41 AM PDT) + + + + + + | Component | Value | Ref Range | Performed | Pathologist | | | | | At | Signature | + + + + + + | Prothrombin | 19.8 (H) | 11.3 - 13.9 | [facility] | | | Time | | seconds | [facility] | | | | | | [facility] | | | | | | CENTER - | | | | | | LABORATORY | | + + + + + + | INR | 1.61 (H)Comment: Usual | 0.90 - 1.10 | [...] + | [facility] | [address] | [place] | [phone] | | [facility] | | [address] | | | - LABORATORY | | | | + + + + + CBC with Differential (09/07/2015 5:41 AM PDT) + + + + + + | Component | Value | Ref Range | Performed | Pathologist | | | | | At | Signature | + + + + + + | White Blood | 4.2 | 4.0 - 11.0 K/uL | [facility] | | | Cells | | | [facility] | | | | | | MEDICAL | | | | | | CENTER - | | | | | | LABORATORY | | + + + + + + | Red Blood | 2.67 (L) | 3.70 - 5.20 | [facility] | | | Cells | | M/uL | [facility] | | | | | | MEDICAL | | | | | | CENTER - | | | | | | LABORATORY | | + + + + + + | Hemoglobin | 8.0 (L) | 11.5 - 16.0 | [facility] | | | | | g/dL | [facility] | | | | | | MEDICAL | | | | | | CENTER - | | | | | | LABORATORY | | + + + + + + | Hematocrit | 24.2 (L) | 34.0 - 47.0 % | [facility] | | | | | | [facility] | | | | | | MEDICAL | | | | | | CENTER - | | | | | | LABORATORY | | + + + + + + | MCV | 90.8 | 83.0 - 101.0 fL | [facility] | | | | | | [facility] | | | | | | [facility]ICAL | | | | | | CENTER - | | | | | | LABORATORY | | + + + + + + | MCH | 30.2 | 28.0 - 35.0 pg | [facility] [...] + + + + | RDW-CV | 17.8 (H) | <15.0 % | [facility] | | | | | | [facility] | | | | | | MEDICAL | | | | | | CENTER - | | | | | | LABORATORY | | + + + + + + | Platelet | 138 (L) | 140 - 440 K/uL | [...] + + + + | % | 50.7 | 45.0 - 82.0 % | [facility] | | | Neutrophils | | | [facility] | | | | | | MEDICAL | | | | | | CENTER - | | | | | | LABORATORY | | + + + + + + | % | 20.7 | 20.0 - 45.0 % | [facility] | | | Lymphocytes | | | [facility] | | | | | | MEDICAL | | | | | | CENTER - | | | | | | LABORATORY | | + + + + + + | % Monocytes | 19.5 (H) | 4.0 - 12.0 % | [facility] | | | | | | [facility] | | | | | | MEDICAL | | | | | | CENTER - | | | | | | LABORATORY | | + + + + + + | % | 6.8 (H) | 0.0 - 5.0 % | [facility] | | | Eosinophils | | | [facility] | | | | | | MEDICAL | | | | | | CENTER - | | | | | | LABORATORY | | + + + + + + | % Basophils | 2.3 (H) | 0.0 - 1.0 % | [facility] | | | | | | [facility] | | | | | | MEDICAL | | | | | | CENTER - | | | | | | LABORATORY | | + + + + + + | Absolute | 2.10 | 1.80 - 8.50 | [facility] | | | Neutrophils | | K/uL | [facility] | | | | | | MEDICAL | | | | | | CENTER - | | | | | | LABORATORY | | + + + + + + | Absolute | 0.90 | 0.60 - 3.20 | [facility] | | | Lymphocytes | | K/uL | [facility] | | | | | | [facility]ICAL | | | | | | CENTER - | | | | | | LABORATORY | | + + + + + + | Absolute | 0.80 | 0.00 - 1.00 | [facility] | | | Monocytes | | K/uL | [facility] | | | | | | MEDICAL | | | | | | CENTER - | | | | | | LABORATORY | | + + + + + + | Absolute | 0.30 | 0.00 - 0.40 | [facility] | [...] [address] | [place] | [phone] | | [facility] | | [address] | | | - LABORATORY | | | | + + + + + Comprehensive Metabolic Panel (09/07/2015 5:41 AM PDT) + + + + + + | Component | Value | Ref Range | Performed | Pathologist | | | | | At | Signature | + + + + + + | Na | 130 (L) | 136 - 149 | [facility] | | | | | mmol/L | [facility] | | | | | | MEDICAL | | | | | | CENTER - | | | | | | LABORATORY | | + + + + + + | K | 3.4 (L) | 3.5 - 5.1 | [facility] [...] + + + | CO2 | 22 (L) | 24 - 31 mmol/L | [...] + + + + | Glucose | 92 | 70 - 109 mg/dL | [facility] | | | | | | [facility] | [facility] | [facility] | [facility] | | | | | | CENTER - | | | | | | LABORATORY | | + + + + + + | BUN | 8 | 7 - 18 mg/dL | [facility] | | | | | | [facility] | | | | | | [facility] | | | | | | CENTER - | | | | | | LABORATORY | | + + + + + + | Creatinine | 0.61 | 0.60 - 1.30 | [facility] | [...] mL/min/1.73m2 | [facility] | | | [place] | RATE,ESTIMATED | | MEDICAL | | | | mL/min/1.34p0Urgo than | | CENTER - | | [...] + + + + | Calcium | 6.9 (L) | 8.3 - 10.5 | [facility] | | | | | mg/dL | [facility] | | | | | | MEDICAL | | | | | | CENTER - | | | | | | LABORATORY | | + + + + + + | Albumin | 1.4 (L) | 3.2 - 5.0 g/dL | [facility] | | | | | | [facility] | | | | | | MEDICAL | | | | | | CENTER - | | | | | | LABORATORY | | + + + + + + | Bilirubin | 0.9 | 0.1 - 1.5 mg/dL | [facility] | | | Total | | | [facility] | | | | | | MEDICAL | | | | | | CENTER - | | | | | | LABORATORY | | + + + + + + | Total | 5.1 (L) | 6.0 - 7.8 g/dL | [facility] | | | Protein | | | [facility] | | | | | | MEDICAL | | | | | | CENTER - | | | | | | LABORATORY | | + + + + + + | AST | 32 | 10 - 42 U/L | [facility] | | | | | | [facility] | | | | | | MEDICAL | | | | | | CENTER - | | | | | | LABORATORY | | + + + + + + | ALT | 10 | 6 - 45 U/L | [facility] | | | | | | [facility] | | | | | | MEDICAL | | | | | | CENTER - | | | | | | LABORATORY | | + + + + + + | Alkaline | 82 | 40 - 110 U/L | [facility] | | | Phosphatase | | | [facility] | | | | | | MEDICAL | | | | | | CENTER - | | | | | | LABORATORY | | + + + + + + | Globulin | 3.7 | 2.1 - 3.8 g/dL | [facility] [...] + + + + | BUN/Creatin | 13.1 | | [facility] | | | ine [...] + | [facility] | [address] | [place] | [phone] | | [facility] | | [address] | | | - LABORATORY | | | | + + + + + PRODUCT: RBC (09/06/2015 7:15 PM PDT) + + + + + + | Component | Value | Ref Range | Performed | Pathologist | | | | | At | Signature | + + + + + + | Product | RBC Leukocytes Reduced | | [facility] | | | Code | | | [facility] | | | | | | MEDICAL | | | | | | CENTER - | | | | | | BLOOD BANK | | + + + + + + | UNIT # | [id number] | | [facility] | | | | | [facility] | | | | | [facility] | | | | | | CENTER - | | | | | | BLOOD BANK | | + + + + + + | UNIT ABO | O | | [facility] | | | | | | [facility] | | | | | [facility] | | | | | | CENTER - | | | | | | BLOOD BANK | | + + + + + + | UNIT RH | POS | | [facility] | | | | | | [facility] | | | | | [facility] | | | | | | CENTER - | | | | | | BLOOD BANK | | + + + + + + | CROSSMATCH | Compatible | | [facility] | | | INTERP | | | [facility] | | | | | | [facility] | | | | | | CENTER - | | | | | | BLOOD BANK | | + + + + + + | Unit Status | Transfused | | [facility] | | | | | | [facility] | | | | | | [facility] | | | | | | CENTER - | | | | | | BLOOD BANK | | + + + + + + + + | Specimen | + + | | + + + + + + + | Performing | Address | City/State/Zipcode | Phone Number | | Organization | | | | + + + + + | [facility] | [address] | [place] | | | [facility] | | [address] | | | - BLOOD BANK | | | | + + + + + CT Abdomen Pelvis w wo Contrast (09/06/2015 4:19 PM PDT) + + | Specimen | + + | | + + + + + | Narrative | Performed At | + + + | CT ABDOMEN PELVIS W WO CONTRAST 09/06/2015 3:59 PM HISTORY: | [facility] | | Hemorrhagic ascites with liver disease; evaluate for neoplastic | | | source. COMPARISON: CT scan of the abdomen and pelvis dated | | | 03/17/2015. PROTOCOL: Axial images of the abdomen and pelvis were | | | obtained after administration of 90 mL Omnipaque 350. Coronal and | | | sagittal reformations were acquired. FINDINGS: The heart is | | | enlarged. A small right pleural effusion is present. 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 The liver has a cirrhotic appearance with | | | lobular contour. A hyperdense lobular area is in the right hepatic | | | lobe segment 8 that measures 4.4 x 6.9 cm (AP, transverse) with | | | lateral capsular bulging. Associated enhancement is present. Multiple | | | calcified gallstones are visualized with no definite evidence for | | | cholecystitis. Biliary ducts are unremarkable. The spleen is | | | unremarkable. The pancreas demonstrates normal parenchyma and a | | | normal pancreatic duct. Adrenal glands are normal. The right | | | kidney and visualized ureter are normal. The left kidney and | | | visualized ureter are normal. Stomach, small bowel, and terminal | | | ileum are normal. The appendix is not well seen. Colon is | | | unremarkable. Aorta is nonaneurysmal. The iliac arteries are | | | normal. There is thinning of the portal veins with appearance of | | | prior thrombus and associated collateral vessels in the sean | | | hepatis. Splenic venous collaterals are seen along with a left | | | splenorenal shunt. No enlarged lymph nodes are visualized within | | | the omentum or retroperitoneum. There is a moderate to large | | | amount of ascites particularly in the lower quadrants and pelvis. | | | Bladder is normal. Uterus and adnexa are normal. There is | | | moderate, diffuse subcutaneous edema consistent with anasarca. There | | | are no acute osseous abnormalities. 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 This is suspicious for a Li-Rads M lesion. The liver is | | | cirrhotic. Further characterization can be obtained with MRI or | | | biopsy. Findings of portal venous hypertension with multiple | | | collateral vasculature. Gallstones with no evidence for | | | cholecystitis. Moderate to large ascites. Cardiomegaly. | | | Small right pleural effusion. NOTE: LI-RADS categories should be | | | interpreted in the context of other available data, such as | | | biomarkers and the patient's probability of developing or having | | | hepatocellular carcinoma. The LI-RADS / OPTN classification of liver | | | lesions has been adopted to standardize CT and MRI scan reporting in | | | patients at risk for hepatocellular carcinoma. The imaging criteria | | | for "definite hepatocellular carcinoma" are concordant for the | | | LI-RADS and OPTN systems. LI-RADS criteria and documentation are | | | available online at [email or web address]/LI-RADS. This report utilizes LI-RADS | | | version 2014. LI-RADS M = Probably malignant, not specific for | | | HCC LI-RADS 5V = Imaging hepatocellular carcinoma with tumor in vein | | | LI-RADS 5 = Definitely hepatocellular carcinoma (concordant with OPTN | | | 5) LI-RADS 4 = Probably hepatocellular carcinoma LI-RADS 3 = | | | Intermediate probability for hepatocellular carcinoma LI-RADS 2 = | | | Probably benign LI-RADS 1 = Definitely benign A preliminary | | | report was sent by [employer] on 09/06/2015 at 7:03 PM with no | | | significant discrepancy. Dictated and Signed by: Austin Crane MD | | | Electronically signed: 09/07/2015 11:00 AM | | + + + + + | Procedure Note | + + | Jermaine, Rad Results In - 09/07/2015 11:[address] ABDOMEN PELVIS W WO CONTRAST | | 09/06/2015 3:59 PMHISTORY: Hemorrhagic ascites with liver disease; evaluate for | | neoplastic source.COMPARISON: CT scan of the abdomen and pelvis dated | | 03/17/2015.PROTOCOL: Axial images of the abdomen and pelvis were obtained | | afteradministration of 90 mL Omnipaque 350. Coronal and sagittal reformations | | wereacquired.FINDINGS:The heart is enlarged. A small right pleural effusion is present. | | Esophagealvarices are observed.The liver has a cirrhotic appearance with lobular | | contour. A hyperdense lobulararea is in the right hepatic lobe segment 8 that measures | | 4.4 x 6.9 cm (AP,transverse) with lateral capsular bulging. Associated enhancement is | | present.Multiple calcified gallstones are visualized with no definite evidence | | forcholecystitis. Biliary ducts are unremarkable.The spleen is unremarkable. The | | pancreas demonstrates normal parenchyma and anormal pancreatic duct. Adrenal glands are | | normal.The right kidney and visualized ureter are normal.The left kidney and visualized | | ureter are normal.Stomach, small bowel, and terminal ileum are normal. The appendix is | | not wellseen. Colon is unremarkable.Aorta is nonaneurysmal. The iliac arteries are | | normal. There is thinning of theportal veins with appearance of prior thrombus and | | associated collateral vesselsin the sean hepatis. Splenic venous collaterals are seen | | along with a leftsplenorenal shunt. No enlarged lymph nodes are visualized within the | | omentum or retroperitoneum.There is a moderate to large amount of ascites particularly | | in the lowerquadrants and pelvis.Bladder is normal.Uterus and adnexa are normal.There is | | moderate, diffuse subcutaneous edema consistent with anasarca. Thereare no acute | | osseous abnormalities.IMPRESSION -Hyperdense enhancing lobular mass in right hepatic | | lobe with bulging of theright liver capsule that is suspicious for hemorrhagic | | hepatocellular carcinoma.This is suspicious for a Li-Rads M lesion. The liver is | | cirrhotic. Furthercharacterization can be obtained with MRI or biopsy.Findings of portal | | venous hypertension with multiple collateral vasculature.Gallstones with no evidence | | for cholecystitis.Moderate to large ascites.Cardiomegaly.Small right pleural | | effusion.NOTE: LI-RADS categories should be interpreted in the context of otheravailable | | data, such as biomarkers and the patient's probability ofdeveloping or having | | hepatocellular carcinoma. The LI-RADS / OPTNclassification of liver lesions has been | | adopted to standardize CT andMRI scan reporting in patients at risk for hepatocellular | | carcinoma.The imaging criteria for "definite hepatocellular carcinoma" areconcordant for | | the LI-RADS and OPTN systems. LI-RADS criteria anddocumentation are available online at | | [email or web address]/LI-RADS. This reportutilizes LI-RADS version 2014. LI-RADS M = Probably | | malignant, not specific for HCCLI-RADS 5V = Imaging hepatocellular carcinoma with tumor | | in veinLI-RADS 5 = Definitely hepatocellular carcinoma (concordant with OPTN 5)LI-RADS 4 | | = Probably hepatocellular carcinomaLI-RADS 3 = Intermediate probability for | | hepatocellular carcinomaLI-RADS 2 = Probably benignLI-RADS 1 = Definitely benign A | | preliminary report was sent by [employer] on 09/06/2015 at 7:03 PM with | | nosignificant discrepancy.Dictated and Signed by: Austin Crane MD Electronically | | signed: 09/07/2015 11:00 AM | | | |Uterus and adnexa are normal. | | | |There is moderate, diffuse subcutaneous edema consistent with anasarca. There | |are no acute osseous abnormalities. | | | |IMPRESSION - | |Hyperdense enhancing lobular mass in right hepatic lobe with bulging of the | |right liver capsule that is suspicious for hemorrhagic hepatocellular carcinoma. | |This is suspicious for a Li-Rads M lesion. The liver is cirrhotic. Further | |characterization can be obtained with MRI or biopsy. | | | |Findings of portal venous hypertension with multiple collateral vasculature. | | | |Gallstones with no evidence for cholecystitis. | | | |Moderate to large ascites. | | | |Cardiomegaly. | | | |Small right pleural effusion. | | | |NOTE: LI-RADS categories should be interpreted in the context of other | |available data, such as biomarkers and the patient's probability of | |developing or having hepatocellular carcinoma. The LI-RADS / OPTN | |classification of liver lesions has been adopted to standardize CT and | |MRI scan reporting in patients at risk for hepatocellular carcinoma. | |The imaging criteria for "definite hepatocellular carcinoma" are | |concordant for the LI-RADS and OPTN systems. LI-RADS criteria and | |documentation are available online at [email or web address]/LI-RADS. This report | |utilizes LI-RADS version 2014. | | | |LI-RADS M = Probably malignant, not specific for HCC | |LI-RADS 5V = Imaging hepatocellular carcinoma with tumor in vein | |LI-RADS 5 = Definitely hepatocellular carcinoma (concordant with OPTN 5) | |LI-RADS 4 = Probably hepatocellular carcinoma | |LI-RADS 3 = Intermediate probability for hepatocellular carcinoma | |LI-RADS 2 = Probably benign | |LI-RADS 1 = Definitely benign | | | |A preliminary report was sent by [facility] on 09/06/2015 at 7:03 PM with no | |significant discrepancy. | | | |Dictated and Signed by: Austin Crane MD | | Electronically signed: 09/07/2015 11:00 AM | + + + +---------+ + + | Performing | Address | City/State/Zipcode | Phone Number | | Organization | | | | + +---------+ + + | [facility] | | | | + +---------+ + + CBC with Differential (09/06/2015 5:34 AM PDT) + + + + + + | Component | Value | Ref Range | Performed | Pathologist | | | | | At | Signature | + + + + + + | White Blood | 5.8 | 4.0 - 11.0 K/uL | [facility] | | | Cells | | | [facility] | | | | | | [facility] | | | | | | [facility] - | | | | | | LABORATORY | | + + + + + + | Red Blood | 3.05 (L) | 3.70 - 5.20 | [facility] | | | Cells | | M/uL | [facility] | | | | | | [facility] | | | | | | CENTER - | | | | | | LABORATORY | | + + + + + + | Hemoglobin | 9.1 (L) | 11.5 - 16.0 | [facility] | | | | | g/dL | [facility] | | | | | | [facility] | | | | | | CENTER - | | | | | | LABORATORY | | + + + + + + | Hematocrit | 28.0 (L) | 34.0 - 47.0 % | [facility] | | | | | | [facility] | | | | | | [facility] | | | | | | C[facility] - | | | | | | LABORATORY | | + + + + + + | MCV | 91.6 | 83.0 - 101.0 fL | [facility] | | | | | | [facility] | | | | | | [facility] | | | | | | C[facility] - | | | | | | LABORATORY | | + + + + + + | MCH | 29.7 | 28.0 - 35.0 pg | [facility] | | | | | | [facility] | | | | | | [facility] | | | | | | CENTER - | | | | | | LABORATORY | | + + + + + + | MCHC | 32.4 | 32.0 - 36.0 | [facility] | | | | | g/dL | [facility] | | | | | | [facility] | | | | | | CENTER - | | | | | | LABORATORY | | + + + + + + | RDW-CV | 18.0 (H) | <15.0 % | [facility] | | | | | | [facility] | | | | | | [facility] | | | | | | C[facility] - | | | | | | LABORATORY | | + + + + + + | Platelet | 156 | 140 - 440 K/uL | [facility] | | | Count | | | [facility] | | | | | | [facility] | | | | | | CENTER - | | | | | | LABORATORY | | + + + + + + | MPV | 7.8 | fL | [facility] | | | | | | [facility] | | | | | | [facility] | | | | | | CENTER - | | | | | | LABORATORY | | + + + + + + | % | 60.6 | 45.0 - 82.0 % | [facility] | | | Neutrophils | | | [facility] | | | | | | MEDICAL | | | | | | CENTER - | | | | | | LABORATORY | | + + + + + + | % | 14.9 (L) | 20.0 - 45.0 % | [facility] | | | Lymphocytes | | | [facility] | | | | | | MEDICAL | | | | | | CENTER - | | | | | | LABORATORY | | + + + + + + | % Monocytes | 16.5 (H) | 4.0 - 12.0 % | [facility] | | | | | | [facility] | | | | | | [facility] | | | | | | CENTER - | | | | | | LABORATORY | | + + + + + + | % | 7.6 (H) | 0.0 - 5.0 % | [facility] | | | Eosinophils | | | [facility] | | | | | | MEDICAL | | | | | | CENTER - | | | | | | LABORATORY | | + + + + + + | % Basophils | 0.4 | 0.0 - 1.0 % | [facility] | | | | | | [facility] | | | | | | [facility] | | | | | | CENTER - | | | | | | LABORATORY | | + + + + + + | Absolute | 3.50 | 1.80 - 8.50 | [facility] | | | Neutrophils | | K/uL | [facility] | | | | | | [facility] | | | | | | CENTER - | | | | | | LABORATORY | | + + + + + + | Absolute | 0.90 | 0.60 - 3.20 | [facility] | | | Lymphocytes | | K/uL | [facility] | | | | | | [facility] | | | | | | CENTER - | | | | | | LABORATORY | | + + + + + + | Absolute | 1.00 | 0.00 - 1.00 | [facility] | | | Monocytes | | K/uL | [facility] | | | | | | [facility] | | | | | | CENTER - | | | | | | LABORATORY | | + + + + + + | Absolute | 0.40 | 0.00 - 0.40 | [facility] | | | Eosinophils | | K/uL | [facility] | | | | | | [facility]ICAL | | | | | | CENTER - | | | | | | LABORATORY | | + + + + + + | Absolute | 0.00 | 0.00 - 0.10 | [facility] | | | Basophils | | K/Jose | [facility] | | | | [...] [address] | [place] | [phone] | | [facility] | | [address] | | | - LABORATORY | | | | + + + + + Comprehensive Metabolic Panel (09/06/2015 5:34 AM PDT) + + + + + + | Component | Value | Ref Range | Performed | Pathologist | | | | | At | Signature | + + + + + + | Na | 129 (L) | 136 - 149 | [facility] [...] + + + | CO2 | 22 (L) | 24 - 31 mmol/L | [facility] | | | | | | [facility] | | | | | | [facility] | | | | | | CENTER - | | | | | | LABORATORY | | + + + + + + | Anion Gap | 4 | 3 - 16 mmol/L | [facility] | | | | | | [facility] | | | | | | [facility] | | | | | | CENTER - | | | | | | LABORATORY | | + + + + + + | Glucose | 89 | 70 - 109 mg/dL | [facility] | | | | | | [facility] | | | | | | MEDICAL | | | | | | CENTER - | | | | | | LABORATORY | | + + + + + + | BUN | 7 | 7 - 18 mg/dL | [facility] | | | | | | [facility] | | | | | | [facility] | | | | | | CENTER - | | | | | | LABORATORY | | + + + + + + | Creatinine | 0.59 (L) | 0.60 - 1.30 | [facility] | | | | | mg/dL | [facility] | | | | | | MEDICAL | | | | | | CENTER - | | | | | | LABORATORY | | + + + + + + | eGFR, | >60Comment: GLOMERULAR | >=60 | [facility] | | | non- | FILTRATION | mL/min/1.73m2 | [facility] | | | [place] | RATE,ESTIMATED | | MEDICAL | | | | mL/min/1.86o8Agkv than | | CENTER - | | [...] + + + + | Calcium | 7.3 (L) | 8.3 - 10.5 | [facility] | | | | | mg/dL | [facility] | | | | | | MEDICAL | | | | | | CENTER - | | | | | | LABORATORY | | + + + + + + | Albumin | 1.6 (L) | 3.2 - 5.0 g/dL | [facility] | | | | | | [facility] | | | | | | MEDICAL | | | | | | CENTER - | | | | | | LABORATORY | | + + + + + + | Bilirubin | 1.8 (H) | 0.1 - 1.5 mg/dL | [facility] | | | Total | | | [facility] | | | | | | MEDICAL | | | | | | CENTER - | | | | | | LABORATORY | | + + + + + + | Total | 5.6 (L) | 6.0 - 7.8 g/dL | [facility] | | | Protein | | | [facility] | | | | | | MEDICAL | | | | | | CENTER - | | | | | | LABORATORY | | + + + + + + | AST | 36 | 10 - 42 U/L | [facility] | | | | | | [facility] | | | | | | MEDICAL | | | | | | CENTER - | | | | | | LABORATORY | | + + + + + + | ALT | 12 | 6 - 45 U/L | [facility] | | | | | | [facility] | | | | | | MEDICAL | | | | | | CENTER - | | | | | | LABORATORY | | + + + + + + | Alkaline | 94 | 40 - 110 U/L | [facility] [...] + + + + | BUN/Creatin | 11.9 | | [facility] | | | ine [...] + | [facility] | [address] | [place], [place] | [phone] | | [facility] | | [address] | | | - LABORATORY | | | | + + + + + Type and Screen (09/05/2015 8:57 PM PDT) + + + + + + | Component | Value | Ref Range | Performed | Pathologist | | | | | At | Signature | + + + + + + | ABO | O | | [facility] | | | | | | [facility] | | | | | | MEDICAL | | | | | | CENTER - | | | | | | BLOOD BANK | | + + + + + + | Rh Type | Positive | | [facility] | | | | | | [facility] | | | | | | MEDICAL | | | | | | CENTER - | | | | | | BLOOD BANK | | + + + + + + | Antibody | Negative | | [facility] | | | Screen | | | [facility] | | | | | | MEDICAL | | | | | | CENTER - | | | | | | BLOOD BANK | | + + + + + + + + | Specimen | + + | Blood specimen | | (specimen) | + + + + + + + | Performing | Address | City/State/Zipcode | Phone Number | | Organization | | | | + + + + + | [facility] | [address] | [place] | | | [facility] | | [address] | | | - BLOOD BANK | | | | + + + + + PRODUCT: RBC (09/05/2015 7:17 AM PDT) + + + + + + | Component | Value | Ref Range | Performed | Pathologist | | | | | At | Signature | + + + + + + | Product | RBC Leukocytes Reduced | | [facility] | | | Code | | | [facility] | | | | | | MEDICAL | | | | | | CENTER - | | | | | | BLOOD BANK | | + + + + + + | UNIT # | [id number] | | [facility] | | | | | | [facility] | | | | | | [facility] | | | | | | CENTER - | | | | | | BLOOD BANK | | + + + + + + | UNIT ABO | O | | [facility] | | | | | [facility] | | | | | [facility] | | | | | | C[facility] - | | | | | | BLOOD BANK | | + + + + + + | UNIT RH | POS | | [facility] | | | | | [facility] | | | | | [facility] | | | | | | CENTER - | | | | | | BLOOD BANK | | + + + + + + | CROSSMATCH | Compatible | | [facility] | | | INTERP | | | [facility] | | | | | | [facility] | | | | | | CENTER - | | | | | | BLOOD BANK | | + + + + + + | Unit Status | Returned | | [facility] | | | | | | [facility] | | | | | | [facility] | | | | | | CENTER - | | | | | | BLOOD BANK | | + + + + + + + + | Specimen | + + | | + + + + + + + | Performing | Address | City/State/Zipcode | Phone Number | | Organization | | | | + + + + + | [facility] | [address] | [place] | | | [facility] | | [address] | | | - BLOOD BANK | | | | + + + + + PRODUCT: RBC (09/05/2015 7:17 AM PDT) + + + + + + | Component | Value | Ref Range | Performed | Pathologist | | | | | At | Signature | + + + + + + | Product | RBC Leukocytes Reduced | | [facility] | | | Code | | | [facility] | | | | | | MEDICAL | | | | | | CENTER - | | | | | | BLOOD BANK | | + + + + + + | UNIT # | [id number] | | [facility] | | | | | | [facility] | | | | | | [facility] | | | | | | CENTER - | | | | | | BLOOD BANK | | + + + + + + | UNIT ABO | O | | [facility] | | | | | | [facility] | | | | | | MEDICAL | | | | | | CENTER - | | | | | | BLOOD BANK | | + + + + + + | UNIT RH | POS | | [facility] | | | | | | [facility] | | | | | | MEDICAL | | | | | | CENTER - | | | | | | BLOOD BANK | | + + + + + + | CROSSMATCH | Compatible | | [facility] | | | INTERP | | | [facility] | | | | | | MEDICAL | | | | | | CENTER - | | | | | | BLOOD BANK | | + + + + + + | Unit Status | Returned | | [facility] | | | | | | [facility] | | | | | | MEDICAL | | | | | | CENTER - | | | | | | BLOOD BANK | | + + + + + + + + | Specimen | + + | | + + + + + + + | Performing | Address | City/State/Zipcode | Phone Number | | Organization | | | | + + + + + | [facility] | [address] | [place] | | | [facility] | | [address] | | | - BLOOD BANK | | | | + + + + + Ammonia (09/05/2015 4:49 AM PDT) + +--------+ + + + | Component | Value | Ref Range | Performed | Pathologist | | | | | At | Signature | + +--------+ + + + | Ammonia | 38 (H) | 11 - 35 umol/L | [facility] | | | | | [...] [address] | [place] | [phone] | | [facility] | | [address] | | | - LABORATORY | | | | + + + + + Basic Metabolic Panel (09/05/2015 4:49 AM PDT) + + + + + [...] + + + | CO2 | 22 (L) | 24 - 31 mmol/L | [...] (L) | 7 - 18 mg/dL | [facility] | | | | | | [facility] | | | | | | MEDICAL | | | | | | CENTER - | | | | | | LABORATORY | | + + + + + + | Creatinine | 0.72 | 0.60 - 1.30 | [facility] | | | | | mg/dL | [facility] | | | | | | MEDICAL | | | | | | CENTER - | | | | | | LABORATORY | | + + + + + + | eGFR, | >60Comment: GLOMERULAR | >=60 | [facility] | | | non- | FILTRATION | mL/min/1.73m2 | [facility] | | | [place] | RATE,ESTIMATED | | MEDICAL | | | | mL/min/1.74d3Zvsx than | | CENTER - | | [...] + + + + | Calcium | 7.3 (L) | 8.3 - 10.5 | [facility] | | | | | mg/dL | [facility] | | | | | | MEDICAL | | | | | | CENTER - | | | | | | LABORATORY | | + + + + + + | BUN/Creatin | 6.9 | | [facility] | | | ine [...] + | [facility] | [address] | [place] | [phone] | | [facility] | | [address] | | | - LABORATORY | | | | + + + + + CBC with Differential (09/05/2015 4:49 AM PDT) + + + + + + | Component | Value | Ref Range | Performed | Pathologist | | | | | At | Signature | + + + + + + | White Blood | 4.5 | 4.0 - 11.0 K/uL | [facility] | | | Cells | | | [facility] | | | | | | MEDICAL | | | | | | CENTER - | | | | | | LABORATORY | | + + + + + + | Red Blood | 2.44 (L) | 3.70 - 5.20 | [facility] | | | Cells | | M/uL | [facility] | | | | | | MEDICAL | | | | | | CENTER - | | | | | | LABORATORY | | + + + + + + | Hemoglobin | 7.4 (LL)Comment: | 11.5 - 16.0 | [facility] | | | | Consistent with previous | g/dL | [facility] | | | | results. | | MEDICAL | | | | | | CENTER - | | | | | | LABORATORY | | + + + + + + | Hematocrit | 22.7 (L) | 34.0 - 47.0 % | [facility] | | | | | | [facility] | | | | | | MEDICAL | | | | | | CENTER - | | | | | | LABORATORY | | + + + + + + | MCV | 93.2 | 83.0 - 101.0 fL | [facility] | | | | | | [facility] | | | | | | MEDICAL | | | | | | CENTER - | | | | | | LABORATORY | | + + + + + + | MCH | 30.2 | 28.0 - 35.0 pg | [facility] | | | | | | [facility] | | | | | | MEDICAL | | | | | | CENTER - | | | | | | LABORATORY | | + + + + + + | MCHC | 32.4 | 32.0 - 36.0 | [facility] | | | | | g/dL | [facility] | | | | | | MEDICAL | | | | | | CENTER - | | | | | | LABORATORY | | + + + + + + | RDW-CV | 17.3 (H) | <15.0 % | [facility] | | | | | | [facility] | | | | | | MEDICAL | | | | | | CENTER - | | | | | | LABORATORY | | + + + + + + | Platelet | 133 (L) | 140 - 440 K/uL | [facility] | | | Count | | | [facility] | | | | | | MEDICAL | | | | | | CENTER - | | | | | | LABORATORY | | + + + + + + | MPV | 7.6 | fL | [facility] | | | | | | [facility] | | | | | | MEDICAL | | | | | | CENTER - | | | | | | LABORATORY | | + + + + + + | % | 57.0 | 45.0 - 82.0 % | [facility] | | | Neutrophils | | | [facility] | | | | | | MEDICAL | | | | | | CENTER - | | | | | | LABORATORY | | + + + + + + | % | 16.7 (L) | 20.0 - 45.0 % | [facility] | | | Lymphocytes | | | [facility] | | | | | | MEDICAL | | | | | | CENTER - | | | | | | LABORATORY | | + + + + + + | % Monocytes | 18.3 (H) | 4.0 - 12.0 % | [facility] | | | | | | [facility] | | | | | | MEDICAL | | | | | | CENTER - | | | | | | LABORATORY | | + + + + + + | % | 7.1 (H) | 0.0 - 5.0 % | [facility] | | | Eosinophils | | | [facility] | | | | | | MEDICAL | | | | | | CENTER - | | | | | | LABORATORY | | + + + + + + | % Basophils | 0.9 | 0.0 - 1.0 % | [facility] | | | | | | [facility] | | | | | | MEDICAL | | | | | | CENTER - | | | | | | LABORATORY | | + + + + + + | Absolute | 2.60 | 1.80 - 8.50 | [facility] | | | Neutrophils | | K/uL | [facility] | | | | | | MEDICAL | | | | | | CENTER - | | | | | | LABORATORY | | + + + + + + | Absolute | 0.80 | 0.60 - 3.20 | [facility] | | | Lymphocytes | | K/uL | [facility] | | | | | | MEDICAL | | | | | | CENTER - | | | | | | LABORATORY | | + + + + + + | Absolute | 0.80 | 0.00 - 1.00 | [facility] | | | Monocytes | | K/uL | [facility] | | | | | | MEDICAL | | | | | | CENTER - | | | | | | LABORATORY | | + + + + + + | Absolute | 0.30 | 0.00 - 0.40 | [facility] | | | Eosinophils | | K/uL | [facility] | | | | [...] | + + + + + | [facility] | [address] | [place] | [phone] | | [facility] | | [address] | | | - LABORATORY | | | | + + + + + Ammonia (09/04/2015 4:28 AM PDT) + +--------+ + + + | Component | Value | Ref Range | Performed | Pathologist | | | | | At | Signature | + +--------+ + + + | Ammonia | 58 (H) | 11 - 35 umol/L | [facility] | | | | | | [facility] | [address] | [place] | [phone] | | [facility] | | [address] | | | - LABORATORY | | | | + + + + + Magnesium (09/04/2015 4:28 AM PDT) + +---------+ + + + | Component | Value | Ref Range | Performed | Pathologist | | | | | At | Signature | + +---------+ + + + | Magnesium | 1.3 (L) | 1.8 - 2.5 mg/dL | [...] [address] | [place] | [phone] | | [facility] | | [address] | | | - LABORATORY | | | | + + + + + Comprehensive Metabolic Panel (09/04/2015 4:28 AM PDT) + + + + + + | Component | Value | Ref Range | Performed | Pathologist | | | | | At | Signature | + + + + + + | Na | 130 (L) | 136 - 149 | [facility] | | | | | mmol/L | [facility] | | | | | | MEDICAL | | | | | | CENTER - | | | | | | LABORATORY | | + + + + + + | K | 3.7 | 3.5 - 5.1 | [facility] | [...] + + + | CO2 | 22 (L) | 24 - 31 mmol/L | [...] + + + + | Glucose | 95 | 70 - 109 mg/dL | [facility] | | | | | | [facility] | | | | | | MEDICAL | | | | | | CENTER - | | | | | | LABORATORY | | + + + + + + | BUN | 4 (L) | 7 - 18 mg/dL | [facility] | | | | | | [facility] | | | | | | MEDICAL | | | | | | CENTER - | | | | | | LABORATORY | | + + + + + + | Creatinine | 0.54 (L) | 0.60 - 1.30 | [facility] | | | | | mg/dL | [facility] | | | | | | MEDICAL | | | | | | CENTER - | | | | | | LABORATORY | | + + + + + + | eGFR, | >60Comment: GLOMERULAR | >=60 | [facility] | | | non- | FILTRATION | mL/min/1.73m2 | [facility] | | | [place] | RATE,ESTIMATED | | MEDICAL | | | | mL/min/1.55o8Fwtt than | | CENTER - | | [...] + + + + | Calcium | 7.3 (L) | 8.3 - 10.5 | [facility] [...] 0.9 | 0.1 - 1.5 mg/dL | [facility] | | | Total | | | [facility] | | | | | | MEDICAL | | | | | | CENTER - | | | | | | LABORATORY | | + + + + + + | Total | 5.1 (L) | 6.0 - 7.8 g/dL | [facility] | | | Protein | | | [facility] | | | | | | MEDICAL | | | | | | CENTER - | | | | | | LABORATORY | | + + + + + + | AST | 32 | 10 - 42 U/L | [facility] | | | | | | [facility] | | | | | | MEDICAL | | | | | | CENTER - | | | | | | LABORATORY | | + + + + + + | ALT | 9 | 6 - 45 U/L | [facility] | | | | | | [facility] | | | | | | MEDICAL | | | | | | CENTER - | | | | | | LABORATORY | | + + + + + + | Alkaline | 89 | 40 - 110 U/L | [facility] | | | Phosphatase | | | [facility] | | | | | | MEDICAL | | | | | | CENTER - | | | | | | LABORATORY | | + + + + + + | Globulin | 3.4 | 2.1 - 3.8 g/dL | [facility] [...] + + + + | BUN/Creatin | 7.4 | | [facility] | | | ine [...] | + + + + + | [facility] | [address] | [place] | [phone] | | [facility] | | [id number] | | | - LABORATORY | | | | + + + + + CBC with Differential (09/04/2015 4:28 AM PDT) + + + + + + | Component | Value | Ref Range | Performed | Pathologist | | | | | At | Signature | + + + + + + | White Blood | 3.4 (L) | 4.0 - 11.0 K/uL | [facility] | | | Cells | | | [facility] | | | | | | MEDICAL | | | | | | CENTER - | | | | | | LABORATORY | | + + + + + + | Red Blood | 2.43 (L) | 3.70 - 5.20 | [facility] | | | Cells | | M/uL | [facility] | | | | | | MEDICAL | | | | | | CENTER - | | | | | | LABORATORY | | + + + + + + | Hemoglobin | 7.4 (LL)Comment: | 11.5 - 16.0 | [facility] | | | | Critical Result called | g/dL | [facility] | | | | to and read back by | | MEDICAL | | | | Lela Paul on | | CENTER - | | | | 09/04/2015 at 5:02 by | | LABORATORY | | | | Luis Antonio Lee. | | | | + + + + + + | Hematocrit | 22.5 (L) | 34.0 - 47.0 % | [facility] | [facility] | | [facility] - | | | | | | LABORATORY | | + + + + + + | MCV | 92.8 | 83.0 - 101.0 fL | [facility] | [facility] | | | | | | [facility] - | | | | | | LABORATORY | | + + + + + + | MCH | 30.4 | 28.0 - 35.0 pg | [facility] | | [facility] | [facility] | | | | | | [facility] - | | | | | | LABORATORY | | + + + + + + | MCHC | 32.8 | 32.0 - 36.0 | [facility] | | | | | g/dL | [facility] | | | | | | [facility] | | | | | | CENTER - | | | | | | LABORATORY | | + + + + + + | RDW-CV | 17.5 (H) | <15.0 % | [facility] | | [facility] | [facility] | | | | | | [facility] - | | | | | | LABORATORY | | + + + + + + | Platelet | 120 (L) | 140 - 440 K/uL | [facility] | | | Count | | | [facility] | | | | | | [facility] | | | | | | CENTER - | | | | | | LABORATORY | | + + + + + + | MPV | 7.6 | fL | [facility] | [facility] | | | [facility] | [facility] | [facility] | | | | | | [facility] - | | | | | | LABORATORY | | + + + + + + | % | 55.7 | 45.0 - 82.0 % | [facility] | | | Neutrophils | | | [facility] | | | | | | [facility] | | | | | | CENTER - | | | | | | LABORATORY | | + + + + + + | % | 17.9 (L) | 20.0 - 45.0 % | [facility] | | | Lymphocytes | | | [facility] | | | | | | [facility] | | | | | | CENTER - | | | | | | LABORATORY | | + + + + + + | % Monocytes | 16.6 (H) | 4.0 - 12.0 % | [facility] | | | | | [facility] | | | | | [facility] | | | | | | [facility] - | | | | | | LABORATORY | | + + + + + + | % | 8.4 (H) | 0.0 - 5.0 % | [facility] | | | Eosinophils | | | [facility] | | | | | | [facility] | | | | | | CENTER - | | | | | | LABORATORY | | + + + + + + | % Basophils | 1.4 (H) | 0.0 - 1.0 % | [facility] | | | | | [facility] | | | | | | [facility] | | | | | | CENTER - | | | | | | LABORATORY | | + + + + + + | Absolute | 1.90 | 1.80 - 8.50 | [facility] | [...] + + + + | Absolute | 0.30 | 0.00 - 0.40 | [facility] | [...] | Basophils | | K/uL | [facility] | | | | [...] | + + + + + | [facility] | [address] | [place] | [phone] | | [facility] | | [address] | | | - LABORATORY | | | | + + + + + US Guided Paracentesis (09/03/2015 4:49 PM PDT) + + | Specimen | + + | | + + + + + | Narrative | Performed At | + + + | US GUIDED PARACENTESIS 09/03/2015 3:52 PM HISTORY: Abdominal pain | [facility] | | secondary to ascites. COMPARISON: 09/02/2015 PROTOCOL: After | | | explaining the risks and benefits of the procedure, informed consent | | | was obtained from the patient. Risks discussed included bleeding, | | | infection, and bowel injury. Under ultrasound guidance, the largest | | | pocket of fluid was localized in the right upper quadrant of the | | | abdomen. This region was cleansed and draped in the usual sterile | | | fashion. Lidocaine was used for local anesthesia. A small skin sam | | | was made. Using a paracentesis needle and trocar system, the | | | peritoneal space was accessed. There was return of bloody yellow | | | fluid. Subsequently, 6000 mL of the fluid was aspirated. The patient | | | tolerated the procedure well. IMPRESSION - Successful | | | ultrasound-guided paracentesis. Dictated and Signed by: Austin Crane MD Electronically signed: 09/03/2015 5:04 PM | | + + + + + | Procedure Note | + + | Edgardo Dean Results In - 09/03/2015 5:07 PM PDT US GUIDED PARACENTESIS 09/03/2015 3:52 | | PMHISTORY: Abdominal pain secondary to ascites.COMPARISON: 09/02/2015PROTOCOL:After | | explaining the risks and benefits of the procedure, informed consent wasobtained from | | the patient. Risks discussed included bleeding, infection, andbowel injury. Under | | ultrasound guidance, the largest pocket of fluid waslocalized in the right upper | | quadrant of the abdomen. This region was cleansedand draped in the usual sterile | | fashion. Lidocaine was used for localanesthesia. A small skin sam was made. Using a | | paracentesis needle and trocarsystem, the peritoneal space was accessed. There was | | return of bloody yellowfluid. Subsequently, 6000 mL of the fluid was aspirated. The | | patient toleratedthe procedure well.IMPRESSION -Successful ultrasound-guided | | paracentesis.Dictated and Signed by: Austin Crane MD Electronically signed: 09/03/2015 | | 5:04 PM | |anesthesia. A small skin sam was made. Using a paracentesis needle and trocar | |system, the peritoneal space was accessed. There was return of bloody yellow | |fluid. Subsequently, 6000 mL of the fluid was aspirated. The patient tolerated | |the procedure well. | | | |IMPRESSION - | |Successful ultrasound-guided paracentesis. | | | |Dictated and Signed by: Austin Crane MD | | Electronically signed: 09/03/2015 5:04 PM | + + + +---------+ + + | Performing | Address | City/State/Zipcode | Phone Number | | Organization | | | | + +---------+ + + | [facility] | | | | + +---------+ + + Culture, AFB Smear (09/03/2015 4:36 PM PDT) + + + + + + | Component | Value | Ref Range | Performed | Pathologist | | | | | At | Signature | + + + + + + | Culture | See CommentsComment: | | REFERENCE | | | Result | Accession No. | | [facility] | | | | | | | | | | [id number] | | | | | | Source | | | | | | ASCITESAFB | | | | | | Stain | | | | | | No Acid | | | | | | Fast Bacilli seenResult | | | | | | | | | | | | No Acid | | | | | | Fast Bacilli Isolated | | | | + + + + + + | Report | Report Status | | REFERENCE | | | Status | Final | | [facility] | | | | 10/25/2015Comment: | | | | | | Testing Performed: | | | | | | [facility] [place] | | | | | | [facility], [address] | | | | | | [address] [place], [place] [address] [address] | | | | + + + + + + + + | Specimen | + + | Body fluid sample | | (specimen) - Ascites | + + + + + + + | Performing | Address | City/State/Zipcode | Phone Number | | Organization | | | | + + + + + | [facility] | [address] | [place] [address] | [phone] | + + + + + Ammonia (09/03/2015 4:23 AM PDT) + +---------+ + + + | Component | Value | Ref Range | Performed | Pathologist | | | | | At | Signature | + +---------+ + + + | Ammonia | 101 (H) | 11 - 35 umol/L | [facility] | | | | | [...] | + + + + + | [facility] | [address] | [place] | [phone] | | [facility] | | [address] | | | - LABORATORY | | | | + + + + + Comprehensive Metabolic Panel (09/03/2015 4:23 AM PDT) + + + + + [...] + + + + | K | 3.7 | 3.5 - 5.1 | [facility] | | | | | mmol/L | [facility] | | | | | | MEDICAL | | | | | | CENTER - | | | | | | LABORATORY | | + + + + + + | Cl | 100 | 98 - 109 mmol/L | [facility] | | | | | | [facility] | | | | | | MEDICAL | | | | | | CENTER - | | | | | | LABORATORY | | + + + + + + | CO2 | 22 (L) | 24 - 31 mmol/L | [...] + + + + | Glucose | 127 (H) | 70 - 109 mg/dL | [...] + + + + | Creatinine | 0.61 | 0.60 - 1.30 | [facility] | [...] mL/min/1.73m2 | [facility] | | | [place] | RATE,ESTIMATED | | MEDICAL | | | | mL/min/1.19q1Xgfc than | | CENTER - | | [...] + + + + | Albumin | 1.0 (L) | 3.2 - 5.0 g/dL | [facility] | | | | | | [facility] | | | | | | MEDICAL | | | | | | CENTER - | | | | | | LABORATORY | | + + + + + + | Bilirubin | 0.8 | 0.1 - 1.5 mg/dL | [facility] | | | Total | | | [facility] | | | | | | MEDICAL | | | | | | CENTER - | | | | | | LABORATORY | | + + + + + + | Total | 5.1 (L) | 6.0 - 7.8 g/dL | [facility] | | | Protein | | | [facility] | | | | | | MEDICAL | | | | | | CENTER - | | | | | | LABORATORY | | + + + + + + | AST | 40 | 10 - 42 U/L | [facility] | | | | | | [facility] | | | | | | MEDICAL | | | | | | CENTER - | | | | | | LABORATORY | | + + + + + + | ALT | 10 | 6 - 45 U/L | [facility] | | | | | | [facility] | | | | | | MEDICAL | | | | | | CENTER - | | | | | | LABORATORY | | + + + + + + | Alkaline | 101 | 40 - 110 U/L | [facility] | | | Phosphatase | | | [facility] | | | | | | MEDICAL | | | | | | CENTER - | | | | | | LABORATORY | | + + + + + + | Globulin | 4.1 (H) | 2.1 - 3.8 g/dL | [facility] | | | | | | [facility] | | | | | | MEDICAL | | | | | | CENTER - | | | | | | LABORATORY | | + + + + + + | Albumin/Joana | 0.2 (L) | 0.8 - 2.0 | [facility] | | | bulin Ratio | | | [facility] | | | | | | MEDICAL | | | | | | CENTER - | | | | | | LABORATORY | | + + + + + + | BUN/Creatin | 6.6 | | [facility] | | | ine [...] + | [facility] | [address] | [place] | [phone] | | [facility] | | [address] | | | - LABORATORY | | | | + + + + + CBC with Differential (09/03/2015 4:23 AM PDT) + + + + + + | Component | Value | Ref Range | Performed | Pathologist | | | | | At | Signature | + + + + + + | White Blood | 4.2 | 4.0 - 11.0 K/uL | [facility] | | | Cells | | | [facility] | | | | | | MEDICAL | | | | | | CENTER - | | | | | | LABORATORY | | + + + + + + | Red Blood | 2.37 (L) | 3.70 - 5.20 | [facility] | | | Cells | | M/uL | [facility] | | | | | | MEDICAL | | | | | | CENTER - | | | | | | LABORATORY | | + + + + + + | Hemoglobin | 7.1 (LL)Comment: | 11.5 - 16.0 | [facility] | | | | Critical Result called | g/dL | [facility] | | | | to and read back by | | MEDICAL | | | | Sabrina Brush on | | CENTER - | | | | 09/03/2015 at 4:34 by | | LABORATORY | | | | Luis Antonio Lee. | | | | + + + + + + | Hematocrit | 22.0 (L) | 34.0 - 47.0 % | [facility] | | | | | | [facility] | | | | | | MEDICAL | | | | | | CENTER - | | | | | | LABORATORY | | + + + + + + | MCV | 93.0 | 83.0 - 101.0 fL | [facility] | | | | | | [facility] | | | | | | MEDICAL | | | | | | CENTER - | | | | | | LABORATORY | | + + + + + + | MCH | 30.2 | 28.0 - 35.0 pg | [facility] | | | | | | [facility] | | | | | | MEDICAL | | | | | | CENTER - | | | | | | LABORATORY | | + + + + + + | MCHC | 32.4 | 32.0 - 36.0 | [facility] | | | | | g/dL | [facility] | | | | | | MEDICAL | | | | | | CENTER - | | | | | | LABORATORY | | + + + + + + | RDW-CV | 17.1 (H) | <15.0 % | [facility] | | | | | | [facility] | | | | | | MEDICAL | | | | | | CENTER - | | | | | | LABORATORY | | + + + + + + | Platelet | 117 (L) | 140 - 440 K/uL | [facility] | | | Count | | | [facility] | | | | | | MEDICAL | | | | | | CENTER - | | | | | | LABORATORY | | + + + + + + | MPV | 7.6 | fL | [facility] | | | | | | [facility] | | | | | | MEDICAL | | | | | | CENTER - | | | | | | LABORATORY | | + + + + + + | % | 64.3 | 45.0 - 82.0 % | [facility] | | | Neutrophils | | | [facility] | | | | | | MEDICAL | | | | | | CENTER - | | | | | | LABORATORY | | + + + + + + | % | 10.6 (L) | 20.0 - 45.0 % | [facility] | | | Lymphocytes | | | [facility] | | | | | | MEDICAL | | | | | | CENTER - | | | | | | LABORATORY | | + + + + + + | % Monocytes | 13.7 (H) | 4.0 - 12.0 % | [facility] | | | | | | [facility] | | | | | | MEDICAL | | | | | | CENTER - | | | | | | LABORATORY | | + + + + + + | % | 8.8 (H) | 0.0 - 5.0 % | [facility] | | | Eosinophils | | | [facility] | | | | | | MEDICAL | | | | | | CENTER - | | | | | | LABORATORY | | + + + + + + | % Basophils | 2.6 (H) | 0.0 - 1.0 % | [facility] | | | | | | [facility] | | | | | | MEDICAL | | | | | | CENTER - | | | | | | LABORATORY | | + + + + + + | Absolute | 2.70 | 1.80 - 8.50 | [facility] | | | Neutrophils | | K/uL | [facility] | | | | | | MEDICAL | | | | | | CENTER - | | | | | | LABORATORY | | + + + + + + | Absolute | 0.40 (L) | 0.60 - 3.20 | [facility] [...] | Absolute | 0.40 | 0.00 - 0.40 | [facility] | [...] | Basophils | | K/uL | [facility] | | | | [...] [address] | [place] | [phone] | | [facility] | | [address] | | | - LABORATORY | | | | + + + + + Medical Cytology (09/03/2015 12:00 AM PDT) + + | Specimen | + + | | + + + + + | Narrative | Performed At | + + + | ORDERING PHYSICIAN: Grant Lomas MD PATIENT NAME: [facility] [place] [facility] | | SHAILA ALMEIDA GENDER: Romulo : 1970 SPECIMEN(S): A | [facility] | | ASCITES FLUID GROSS DESCRIPTION: 30 ML CLOUDY ORANGE FLUID, 35 | | | ML EXTRA FLUID CLINICAL HISTORY: NO CLINICAL DATA PROVIDED | | | LABORATORY PREPARATIONS: 1 MONOLAYER, 1 CYTOLOGY CELL BLOCK | | | CYTOLOGIC INTERPRETATION: Ascites: Negative for malignant cells. | | | DESCRIPTION: The preparations contain mesothelial cells, rare | | | inflammatory cells, and acellular proteinaceous material. Atypical | | | cytologic findings are not encountered. SPECIMEN ADEQUACY: | | | Satisfactory for Evaluation PERFORMING LABORATORY: Professional | | | interpretation was performed by [facility] - [facility] | | | Center Branch - [address] [place] [address] (Medical | | | Director: Bebeto Ruiz M.D.; [facility]#:[id number]).8 Technical | | | preparation was performed by [facility] [id number] | | | [address] [place] [address] and [facility], [place] | | | [address] [place] [address]. Diagnostician: | | | Gladis Johnson M.S., [facility] Benzene Washer Operator | | | Diagnostician: Ana M Holm MD Pathologist Electronically | | | Signed 09/08/2015 | | + + + + +---------+ + + | Performing | Address | City/State/Zipcode | Phone Number | | Organization | | | | + +---------+ + + | [facility] | | | | | [facility] | | | | + +---------+ + + US Guided Paracentesis (09/02/2015 10:04 AM PDT) + + | Specimen | + + | | + + + + + | Narrative | Performed At | + + + | EXAM:US GUIDED PARACENTESIS dated09/01/2015 12:00 AM CLINICAL | [facility] | | HISTORY: ascites COMPARISON: None PROCEDURE: After | | | explaining the potential risks and benefits of the procedure to the | | | patient, verbal and written consent were obtained. With the patient | | | in the supine position, ultrasound was utilized to identify a | | | suitable site for paracentesis left lower quadrant. The overlying | | | skin was prepped and draped in sterile fashion, and approximately 8 | | | mL buffered 1% lidocaine utilized for local anesthesia. A small | | | skin sam was made to accommodate the 8 Icelandic paracentesis trocar | | | catheter, which were advanced into the peritoneal cavity without | | | difficulty. There was immediate return of orange fluid. The | | | catheter was advanced off of the trocar, and the trocar removed. | | | 5000 mL fluid were subsequently aspirated without difficulty | | | utilizing wall suction. The catheter was removed, and hemostasis | | | assured with manual compression. The patient tolerated the | | | procedure well, and there were no immediate complications. The | | | patient was transferred from the department in stable condition. | | | Fluid was sent to lab as requested. IMPRESSION - | | | ULTRASOUND-GUIDED THERAPEUTIC PARACENTESIS PRODUCING 5000 CC FLUID | | | DESCRIBED. Dictated and Signed by: Hakeem Barroso MD | | | Electronically signed: 09/02/2015 10:29 AM | | + + + + + | Procedure Note | + + | Jermaine, Rad Results In - 09/02/2015 10:32 AM PDT EXAM:US GUIDED PARACENTESIS | | dated09/01/2015 12:00 AMCLINICAL HISTORY: ascites COMPARISON: None PROCEDURE: After | | explaining the potential risks and benefits of the procedureto the patient, verbal and | | written consent were obtained. With the patient inthe supine position, ultrasound was | | utilized to identify a suitable site forparacentesis left lower quadrant. The overlying | | skin was prepped and draped insterile fashion, and approximately 8 mL buffered 1% | | lidocaine utilized for localanesthesia. A small skin sam was made to accommodate the 8 | | Icelandic paracentesistrocar catheter, which were advanced into the peritoneal cavity | | withoutdifficulty. There was immediate return of orange fluid. The catheter | | wasadvanced off of the trocar, and the trocar removed. 5000 mL fluid weresubsequently | | aspirated without difficulty utilizing wall suction. The catheterwas removed, and | | hemostasis assured with manual compression. The patienttolerated the procedure well, | | and there were no immediate complications. Thepatient was transferred from the | | department in stable condition. Fluid was sentto lab as requested. IMPRESSION - | | ULTRASOUND-GUIDED THERAPEUTIC PARACENTESIS PRODUCING 5000 CC FLUID DESCRIBED.Dictated | | and Signed by: Hakeem Barroso MD Electronically signed: 09/02/2015 10:29 AM | |was removed, and hemostasis assured with manual compression. The patient | |tolerated the procedure well, and there were no immediate complications. The | |patient was transferred from the department in stable condition. Fluid was sent | |to lab as requested. | | | |IMPRESSION - | | | |ULTRASOUND-GUIDED THERAPEUTIC PARACENTESIS PRODUCING 5000 CC FLUID DESCRIBED. | | | |Dictated and Signed by: Hakeem Barroso MD | | Electronically signed: 09/02/2015 10:29 AM | + + + +---------+ + + | Performing | Address | City/State/[facility] | Phone Number | | Organization | | | | + +---------+ + + | [facility] | | | | + +---------+ + + Culture, AFB Smear (09/02/2015 9:47 AM PDT) + + + + + + | Component | Value | Ref Range | Performed | Pathologist | | | | | At | Signature | + + + + + + | Culture | See CommentsComment: | | REFERENCE | | | Result | Accession No. | | [facility] | | | | | | | | | | [id number] | | | | | | Source | | | | | | Ascites | | | | | | FluidAFB Stain | | | | | | | | | | | | No Acid Fast Bacilli | | | | | | seenResult | | | | | | | | | | | | No Acid Fast Bacilli | | | | | | Isolated | | | | + + + + + + | Report | Report Status | | REFERENCE | | | Status | Final | | [facility] | | | | 10/22/2015Comment: | | | | | | Testing Performed: | | | | | | [facility] [place] | | | | | | [facility], [address] | | | | | | [place] [address] | | | | + + + + + + + + | Specimen | + + | Body fluid sample | | (specimen) - Ascites | + + + + + + + | Performing | Address | City/State/Zipcode | Phone Number | | Organization | | | | + + + + + | [facility] | [address] | [place] [address] | [phone] | + + + + + Culture, Body Fluid, Anaerobe (09/02/2015 9:47 AM PDT) + + + + + [...] | + + | Body Fluid - | | Peritoneal fluid | | sample (specimen) | + + + + + + + | Performing | Address | City/State/Zipcode | Phone Number | | Organization | | | | + + + + + | [facility] | [address] | [place] | [phone] | | [facility] | | [address] | | | - LABORATORY | | | | + + + + + Culture, Body Fluid, Aerobe (09/02/2015 9:47 AM PDT) + + + + + + | Component | Value | Ref Range | Performed | Pathologist | | | | | At | Signature | + + + + + + | Culture | No Growth | | [facility] | | | | | | [facility] | | | | | | MEDICAL | | | | | | CENTER - | | | | | | LABORATORY | | + + + + + + | Gram Stain | 3+ White Blood Cells | | [facility] | [...] | + + | Body Fluid - | | Peritoneal fluid | | sample (specimen) | + + + + + + + | Performing | Address | City/State/Zipcode | Phone Number | | Organization | | | | + + + + + | [facility] | [address] | [place], [place] | [phone] | | [facility] | | [address] | | | - LABORATORY | | | | + + + + + Lactate Dehydrogenase, Body Fluid (09/02/2015 9:47 AM PDT) + + + + + + | Component | Value | Ref Range | Performed | Pathologist | | | | | At | Signature | + + + + + + | Lactate | 54 | U/L | [facility] | | | Dehydrogena | | | [facility] | | | se, Body | | | MEDICAL | | | Fluid | | | CENTER - | | | | | | LABORATORY | | + + + + + + | Source | Peritoneal | | [facility] | | | | | | [facility] | | | | | | MEDICAL | | | | | | CENTER - | | | | | | LABORATORY | | + + + + + + + + | Specimen | + + | Body Fluid - | | Peritoneal fluid | | sample (specimen) | + + + + + + + | Performing | Address | City/State/Zipcode | Phone Number | | Organization | | | | + + + + + | [facility] | [address] | [place] | [phone] | | [facility] | | [address] | | | - LABORATORY | | | | + + + + + Glucose, Body Fluid (09/02/2015 9:47 AM PDT) + + + + + + | Component | Value | Ref Range | Performed | Pathologist | | | | | At | Signature | + + + + + + | Glucose, | 95 | mg/dL | [facility] | | | Body Fluid | | | [facility] | | | | | | MEDICAL | | | | | | CENTER - | | | | | | LABORATORY | | + + + + + + | Source | Peritoneal | | [facility] | | | | | | [facility] | | | | | | MEDICAL | | | | | | CENTER - | | | | | | LABORATORY | | + + + + + + + + | Specimen | + + | Body Fluid - | | Peritoneal fluid | | sample (specimen) | + + + + + + + | Performing | Address | City/State/Zipcode | Phone Number | | Organization | | | | + + + + + | [facility] | [address] | [place] | [phone] | | [facility] | | [address] | | | - LABORATORY | | | | + + + + + Protein, Body Fluid (09/02/2015 9:47 AM PDT) + + + + + + | Component | Value | Ref Range | Performed | Pathologist | | | | | At | Signature | + + + + + + | Protein, | 1.3 | g/dL | [facility] | | | Body Fluid | | | [facility] | | | | | | MEDICAL | | | | | | CENTER - | | | | | | LABORATORY | | + + + + + + | Source | Peritoneal | | [facility] | | | | | | [facility] | | | | | | MEDICAL | | | | | | CENTER - | | | | | | LABORATORY | | + + + + + + + + | Specimen | + + | Body Fluid - | | Peritoneal fluid | | sample (specimen) | + + + + + + + | Performing | Address | City/State/Zipcode | Phone Number | | Organization | | | | + + + + + | [facility] | [address] | [place] | [phone] | | [facility] | | [address] | | | - LABORATORY | | | | + + + + + Cell Count with Differential, Body Fluid (09/02/2015 9:47 AM PDT) + + + + + + | Component | Value | Ref Range | Performed | Pathologist | | | | | At | Signature | + + + + + + | Specimen | Paracentesis | | [facility] | | | Source | | | [facility] | | | | | | MEDICAL | | | | | | CENTER - | | | | | | LABORATORY | | + + + + + + | Color, Body | [place] | | [facility] | | | Fluid | | | [facility] | | | | | | MEDICAL | | | | | | CENTER - | | | | | | LABORATORY | | + + + + + + | Appearance, | Hazy (A) | Clear | [facility] | | | Body Fluid | | | [facility] | | | | | | MEDICAL | | | | | | CENTER - | | | | | | LABORATORY | | + + + + + + | Red Blood | 18,331 | cells/uL | [facility] | | | Cells, Body | | | [facility] | | | Fluid | | | MEDICAL | | | | | | CENTER - | | | | | | LABORATORY | | + + + + + + | Nucleated | 56 | 0 - 150 | [facility] | | | Cells, Body | | cells/uL | [facility] | | | Fluid | | | MEDICAL | | | | | | CENTER - | | | | | | LABORATORY | | + + + + + + | % | 7 | % | [facility] | | | Neutrophils | | | [facility] | | | , Body | | | MEDICAL | | | Fluid | | | CENTER - | | | | | | LABORATORY | | + + + + + + | % | 9 | % | [facility] | | | Lymphocytes | | | [facility] | | | , Body | | | MEDICAL | | | Fluid | | | CENTER - | | | | | | LABORATORY | | + + + + + + | % | 84 | % | [facility] | | | Macrophages | | | [facility] | | | /Monocytes, | | | MEDICAL | | | Body Fluid | | | CENTER - | | | | | | LABORATORY | | + + + + + + | Total Cells | 100 | | [facility] | | | Counted, | | | [facility] | | | Body Fluid | | | MEDICAL | | | | | | CENTER - | | | | | | LABORATORY | | + + + + + + + + | Specimen | + + | Body Fluid - | | Peritoneal fluid | | sample (specimen) | + + + + + + + | Performing | Address | City/State/Zipcode | Phone Number | | Organization | | | | + + + + + | [facility] | [address] | [place] | [phone] | | [facility] | | [address] | | | - LABORATORY | | | | + + + + + HIV 1 AND 2 Ab Screen (Reflexive) (09/02/2015 5:35 AM PDT) + + + + + + | Component | Value | Ref Range | Performed | Pathologist | | | | | At | Signature | + + + + + + | HIV 1 and 2 | See CommentsComment: Non | NR | [facility] | | | Ab | ReactiveThe Non | | [facility] | | | | Reactive HIV 1/2 | | | | | | antibody result | | | | | | indicates that | | | | | | antibodies toHIV 1/2 | | | | | | have not been detected | | | | | | in this specimen. This | | | | | | result does notpreclude | | | | | | previous exposure or | | | | | | infection.Testing | | | | | | Performed: [facility], [address] | | | | | [place] | | | | | | [address] | | | | + + + + + + + + | Specimen | + + | Blood specimen | | (specimen) | + + + + + + + | Performing | Address | City/State/Zipcode | Phone Number | | Organization | | | | + + + + + | [facility] | [address] | [place] [address] | [phone] | + + + + + Ferritin (09/02/2015 5:35 AM PDT) + +-------+ + + + | Component | Value | Ref Range | Performed | Pathologist | | | | | At | Signature | + +-------+ + + + | FERRITIN | 61 | 11-<307 ng/mL | [facility] | | | | | [...] + | [facility] | [address] | [place] | [phone] | | [facility] | | [address] | | | - LABORATORY | | | | + + + + + Retic Count (09/02/2015 5:35 AM PDT) + +---------+ + + + | Component | Value | Ref Range | Performed | Pathologist | | | | | At | Signature | + +---------+ + + + | % | 3.2 (H) | 0.5 - 1.5 % | [facility] | | | Reticulocyt | | | [facility] | | | e Count | | | MEDICAL | | | | | | CENTER - | | | | | | LABORATORY | | + +---------+ + + + | Absolute | 0.0858 | M/uL | [facility] | | | Reticulocyt | | | [facility] | | | e Count | | | MEDICAL | | | [...] [address] | [place] | [phone] | | [facility] | | [address] | | | - LABORATORY | | | | + + + + + Folate (09/02/2015 5:35 AM PDT) + +-------+ + + + | Component | Value | Ref Range | Performed | Pathologist | | | | | At | Signature | + +-------+ + + + | FOLATE | 9.6 | >5.8 ng/mL | [facility] | | | | | [...] + | [facility] | [address] | [place] | [phone] | | [facility] | | [address] | | | - LABORATORY | | | | + + + + + Vitamin B-12 (09/02/2015 5:35 AM PDT) + + + + + + | Component | Value | Ref Range | Performed | Pathologist | | | | | At | Signature | + + + + + + | VITAMIN | 812Comment: DEFICIENT: | 180 - 914 pg/mL | [facility] | | | B-12 | <145 | | [facility] | | | | pg/mLINDETERMINATE: | | MEDICAL | | | | 145-180 pg/mL | | CENTER - | | | [...] [address] | [place] | [phone] | | [facility] | | [address] | | | - LABORATORY | | | | + + + + + Iron and Transferrin (09/02/2015 5:35 AM PDT) + + + + + + | Component | Value | Ref Range | Performed | Pathologist | | | | | At | Signature | + + + + + + | Iron | 39 (L) | 40 - 150 ug/dL | [facility] | | | | | | [facility] | | | | | | MEDICAL | | | | | | CENTER - | | | | | | LABORATORY | | + + + + + + | TRANSFERRIN | 129.0 (L) | 240.0 - 480.0 | [facility] | | | | | mg/dL | [facility] | | | | | | MEDICAL | | | | | | CENTER - | | | | | | LABORATORY | | + + + + + + | TIBC | 181 (L) | 235 - 425 ug/dL | [facility] | | | | | | [facility] | | | | | | MEDICAL | | | | | | CENTER - | | | | | | LABORATORY | | + + + + + + | % | 21.6 | 20.0 - 55.0 % | [facility] | | | SATURATION | | | [facility] | | [...] [address] | [place] | [phone] | | [facility] | | [address] | | | - LABORATORY | | | | + + + + + Hepatitis A, BRupesh Reflex (09/02/2015 5:35 AM PDT) + + + + + + | Component | Value | Ref Range | Performed | Pathologist | | | | | At | Signature | + + + + + + | Hepatitis | See CommentsComment: No | | [facility] | | | Interpretat | serologic evidence of | | [facility] | | | ion: | current or past | | | | | | Hepatitis B virus | | | | | | infection.HAV infection | | | | | | in remote past.Absence | | | | | | of antibody suggests no | | | | | | past Hepatitis C | | | | | | infection. Sinceantibody | | | | | | development may be | | | | | | delayed up to 6 months | | | | | | after | | | | | | infection,retesting may | | | | | | be indicated.Testing | | | | | | Performed: [facility], [address] | | | | | [address], [place] | | | | | | [id number] | | | | + + + + + + | Hepatitis A | Reactive (A) | NR | [facility] | | | Ab Total | | | [facility] | | + + + + + + | Hepatitis B | Non Reactive | NR | [facility]FER[facility] | | | Surface Ag | | | [facility] | | + + + + + + | Hepatitis B | Non Reactive | NR | [facility]FER[facility] | | | Core Ab | | | [facility] | | | Total | | | | | + + + + + + | Hepatitis C | See CommentsComment: Non | NR | REFER[facility] | | | Ab | ReactiveHepatitis C: | | [facility] | | | | Absence of antibody | | | | | | suggests no past | | | | | | Hepatitis C | | | | | | virusinfection. Since | | | | | | antibody development may | | | | | | be delayed up to 6 | | | | | | monthsafter infection, | | | | | | retesting may be | | | | | | indicated. | | | | + + + + + + | Hepatitis A | Non Reactive | NR | [facility] | | | Ab IgM | | | [facility] | | + + + + + + + + | Specimen | + + | Blood specimen | | (specimen) | + + + + + + + | Performing | Address | City/State/Zipcode | Phone Number | | Organization | | | | + + + + + | [facility] | [address] | [place] [address] | [phone] | + + + + + Loreime INR (09/02/2015 5:35 AM PDT) + + + + + + | Component | Value | Ref Range | Performed | Pathologist | | | | | At | Signature | + + + + + + | Prothrombin | 17.8 (H) | 11.3 - 13.9 | [facility] | | | Time | | seconds | [facility] | | | | | | MEDICAL | | | | | | CENTER - | | | | | | LABORATORY | | + + + + + + | INR | 1.41 (H)Comment: Usual | 0.90 - 1.10 | [...] [facility]. | [address] | [place] | [phone] | | [facility] | | [address] | | | - LABORATORY | | | | + + + + + Magnesium (09/02/2015 5:35 AM PDT) + +---------+ + + + [...] ST. | [address] | [place] | [phone] | | [facility] | | [address] | | | - LABORATORY | | | | + + + + + CBC with Differential (09/02/2015 5:35 AM PDT) + + + + + + | Component | Value | Ref Range | Performed | Pathologist | | | | | At | Signature | + + + + + + | White Blood | 5.0 | 4.0 - 11.0 K/uL | [facility] | | | Cells | | | [facility] | | | | | | MEDICAL | | | | | | CENTER - | | | | | | LABORATORY | | + + + + + + | Red Blood | 2.66 (L) | 3.70 - 5.20 | [facility] | | | Cells | | M/uL | [facility] | | | | | | MEDICAL | | | | | | CENTER - | | | | | | LABORATORY | | + + + + + + | Hemoglobin | 8.1 (L) | 11.5 - 16.0 | [facility] | | | | | g/dL | [facility] | | | | | | MEDICAL | | | | | | CENTER - | | | | | | LABORATORY | | + + + + + + | Hematocrit | 24.6 (L) | 34.0 - 47.0 % | [facility] | | | | | | [facility] | | | | | | MEDICAL | | | | | | CENTER - | | | | | | LABORATORY | | + + + + + + | MCV | 92.3 | 83.0 - 101.0 fL | [facility] | | | | | | [facility] | | | | | | MEDICAL | | | | | | CENTER - | | | | | | LABORATORY | | + + + + + + | MCH | 30.5 | 28.0 - 35.0 pg | [facility] | | | | | | [facility] | | | | | | MEDICAL | | | | | | CENTER - | | | | | | LABORATORY | | + + + + + + | MCHC | 33.0 | 32.0 - 36.0 | [facility] | | | | | g/dL | [facility] | | | | | | MEDICAL | | | | | | CENTER - | | | | | | LABORATORY | | + + + + + + | RDW-CV | 17.5 (H) | <15.0 % | [facility] | | | | | | [facility] | | | | | | MEDICAL | | | | | | CENTER - | | | | | | LABORATORY | | + + + + + + | Platelet | 131 (L) | 140 - 440 K/uL | [facility] | | | Count | | | [facility] | | | | | | MEDICAL | | | | | | CENTER - | | | | | | LABORATORY | | + + + + + + | MPV | 7.9 | fL | [facility] | | | | | | [facility] | | | | | | MEDICAL | | | | | | CENTER - | | | | | | LABORATORY | | + + + + + + | % | 66.2 | 45.0 - 82.0 % | [facility] | | | Neutrophils | | | [facility] | | | | | | MEDICAL | | | | | | CENTER - | | | | | | LABORATORY | | + + + + + + | % | 9.2 (L) | 20.0 - 45.0 % | [facility] | | | Lymphocytes | | | [facility] | | | | | | MEDICAL | | | | | | CENTER - | | | | | | LABORATORY | | + + + + + + | % Monocytes | 14.3 (H) | 4.0 - 12.0 % | [facility] | | | | | | [facility] | | | | | | MEDICAL | | | | | | CENTER - | | | | | | LABORATORY | | + + + + + + | % | 7.4 (H) | 0.0 - 5.0 % | [facility] | | | Eosinophils | | | [facility] | | | | | | MEDICAL | | | | | | CENTER - | | | | | | LABORATORY | | + + + + + + | % Basophils | 2.9 (H) | 0.0 - 1.0 % | [facility] | | | | | | [facility] | | | | | | MEDICAL | | | | | | CENTER - | | | | | | LABORATORY | | + + + + + + | Absolute | 3.30 | 1.80 - 8.50 | [facility] | [...] + + + + | Absolute | 0.70 | 0.00 - 1.00 | [facility] | | | Monocytes | | K/uL | [facility] | | | | | | MEDICAL | | | | | | CENTER - | | | | | | LABORATORY | | + + + + + + | Absolute | 0.40 | 0.00 - 0.40 | [facility] | [...] | | Basophils | | K/uL | [facility] | | | | [...] [address] | [place] | [phone] | | [facility] | | [address] | | | - LABORATORY | | | | + + + + + Comprehensive Metabolic Panel (09/02/2015 5:35 AM PDT) + + + + + + | Component | Value | Ref Range | Performed | Pathologist | | | | | At | Signature | + + + + + + | Na | 129 (L) | 136 - 149 | [facility] | | | | | mmol/L | [facility] | | | | | | MEDICAL | | | | | | CENTER - | | | | | | LABORATORY | | + + + + + + | K | 3.5 | 3.5 - 5.1 | [facility] | | | | | mmol/L | [facility] | | | [facility] | | MEDICAL | | | | | | CENTER - | | | | | | LABORATORY | | + + + + + + | Cl | 99 | 98 - 109 mmol/L | [facility] [...] + + + | Anion Gap | 9 | 3 - 16 mmol/L | [facility] | | | | | | [facility] | | | | | | MEDICAL | | | | | | CENTER - | | | | | | LABORATORY | | + + + + + + | Glucose | 107 | 70 - 109 mg/dL | [facility] | | | | | | [facility] | | | | | | MEDICAL | | | | | | CENTER - | | | | | | LABORATORY | | + + + + + + | BUN | 3 (L) | 7 - 18 mg/dL | [facility] | | | | | | [facility] | | | | | | MEDICAL | | | | | | CENTER - | | | | | | LABORATORY | | + + + + + + | Creatinine | 0.54 (L) | 0.60 - 1.30 | [facility] | | | | | mg/dL | [facility] | | | | | | MEDICAL | | | | | | CENTER - | | | | | | LABORATORY | | + + + + + + | eGFR, | >60Comment: GLOMERULAR | >=60 | [facility] | | | non- | FILTRATION | mL/min/1.73m2 | [facility] | | | [place] | RATE,ESTIMATED | | MEDICAL | | | | mL/min/1.44q2Kfae than | | CENTER - | | [...] + + + + | Bilirubin | 1.5 | 0.1 - 1.5 mg/dL | [facility] | | | Total | | | [facility] | | | | | | MEDICAL | | | | | | CENTER - | | | | | | LABORATORY | | + + + + + + | Total | 6.7 | 6.0 - 7.8 g/dL | [facility] | | | Protein | | | [facility] | | | | | | MEDICAL | | | | | | CENTER - | | | | | | LABORATORY | | + + + + + + | AST | 44 (H) | 10 - 42 U/L | [facility] | | | | | | [facility] | | | | | | MEDICAL | | | | | | CENTER - | | | | | | LABORATORY | | + + + + + + | ALT | 12 | 6 - 45 U/L | [facility] | | | | | | [facility] | | | | | | MEDICAL | | | | | | CENTER - | | | | | | LABORATORY | | + + + + + + | Alkaline | 126 (H) | 40 - 110 U/L | [facility] | | | Phosphatase | | | [facility] | | | | | | MEDICAL | | | | | | CENTER - | | | | | | LABORATORY | | + + + + + + | Globulin | 5.4 (H) | 2.1 - 3.8 g/dL | [facility] | | | | | | [facility] | | | | | | MEDICAL | | | | | | CENTER - | | | | | | LABORATORY | | + + + + + + | Albumin/Joana | 0.2 (L) | 0.8 - 2.0 | [facility] | | | bulin Ratio | | | [facility] | | | | | | MEDICAL | | | | | | CENTER - | | | | | | LABORATORY | | + + + + + + | BUN/Creatin | 5.6 | | [facility] | | | ine Ratio | | | [facility] | [...] ST. | [address] | [place] | [phone] | | [facility] | | [address] | | | - LABORATORY | | | | + + + + + Culture, Urine (09/02/2015 1:57 AM PDT) + + + + + + | Component | Value | Ref Range | Performed | Pathologist | | | | | At | Signature | + + + + + + | Culture | No Growth | | [facility] | | | | | | [facility] | | | | | | MEDICAL | | | | | | CENTER - | | | | | | LABORATORY | | + + + + + + + + | Specimen | + + | Urine - Urine | | specimen obtained | | via indwelling | | urinary catheter | | (specimen) | + + + + + + + | Performing | Address | City/State/Zipcode | Phone Number | | Organization | | | | + + + + + | [facility] | [address] | [place] | [phone] | | [facility] | | [address] | | | - LABORATORY | | | | + + + + + , Urine, Qual (09/02/2015 1:57 AM PDT) + + + + + + | Component | Value | Ref Range | Performed | Pathologist | | | | | At | Signature | + + + + + + | HCG | Negative | Negative | [facility] | | | Qualitative | | | [facility] | | | , Urine | | | MEDICAL | | | | | | CENTER - | | | | | | LABORATORY | | + + + + + + + + | Specimen | + + | Urine - Urine | | specimen obtained | | via indwelling | | urinary catheter | | (specimen) | + + + + + + + | Performing | Address | City/State/Zipcode | Phone Number | | Organization | | | | + + + + + | [facility] | [address] | [place] | [phone] | | [facility] | | [address] | | | - LABORATORY | | | | + + + + + Urinalysis with Microscopic with Culture if Indicated (09/02/2015 1:57 AM PDT) + + + + + [...] + + + | pH, Urine | 7.5 | 5.0 - 8.0 | [facility] | | | | | | [facility] | | | | | | MEDICAL | | | | | | CENTER - | | | | | | LABORATORY | | + + + + + + | Specific | 1.010 | 1.001 - 1.030 | [facility] | | | [place], | | | [facility] | | | Urine | | | MEDICAL | | | | | | CENTER - | | | | | | LABORATORY | | + + + + + + | Protein, | 30 mg/dL (A) | Negative | [facility] | [...] + + + + | Ketones, | 10 mg/dL (A) | Negative | [facility] | [...] + + + | Urobilinoge | 2.0 mg/dL (A) | 0.2 mg/dL, 1.0 | [facility] | | | n, Urine | | mg/dL, Negative | [facility] | | | | | | MEDICAL | | | | | | CENTER - | | | | | | LABORATORY | | + + + + + + | White Blood | 2-5 (A) | 0 - 2 /HPF | [...] + + + + | Squamous | 25-50 (A) | 0 - 2 /LPF | [...] + + + + + + | Amorphous | Few (A) | None Seen /HPF [...] Urine - Urine | | specimen obtained | | via indwelling | | urinary catheter | | (specimen) | + + + + + + + | Performing | Address | City/State/Zipcode | Phone Number | | Organization | | | | + + + + + | [facility] | [address] | [place] | [phone] | | [facility] | | [address] | | | - LABORATORY | | | | + + + + + Medical Cytology (09/02/2015 12:00 AM PDT) + + | Specimen | + + | | + + + + + | Narrative | Performed At | + + + | ORDERING PHYSICIAN: Grant Lomas MD PATIENT NAME: [facility] | | SHAILA ALMEIDA GENDER: Romulo : 1970 SPECIMEN(S): A | [facility] | | ASCITES FLUID GROSS DESCRIPTION: 38 ML OF CLOUDY RED FLUID WITH | | | TISSUE FRAGMENTS CLINICAL HISTORY: [facility] LABORATORY | | | PREPARATIONS: 1 MONOLAYER, 1 CYTOLOGY CELL BLOCK CYTOLOGIC | | | INTERPRETATION: Ascites: Negative for malignant cells. | | | DESCRIPTION: The preparations contain mesothelial cells, rare | | | inflammatory cells, and acellular proteinaceous material. Atypical | | | cytologic findings are not encountered. SPECIMEN ADEQUACY: | | | Satisfactory for Evaluation PERFORMING LABORATORY: Professional | | | interpretation was performed by [facility] | | | [facility] - [address] [place] [id number] (Medical | | | Director: Bebeto Ruiz M.D.; CLIA#:[id number]).8 Technical | | | preparation was performed by [facility] | | | [place] [address] and [facility] | | | [address] [place] [address]. Diagnostician: | | | Gladis Johnson M.S., CT([facility] Benzene Washer Operator | | | Diagnostician: Ana M Holm MD Pathologist Electronically | | | Signed 09/03/2015 | | + + + + +---------+ + + | Performing | Address | City/State/[facility] | Phone Number | | Organization | | | | + +---------+ + + | [place] [facility] | | | | | [facility] | | | | + +---------+ + + Occult Blood, Stool, Specimen 3 (09/01/2015 9:41 PM PDT) + +--------+ + + + | Component | Value | Ref Range | Performed | Pathologist | | | | | At | Signature | + +--------+ + + + | Occult | Absent | | [facility] | | | Blood in | | | [facility] | | | 3rd | | | MEDICAL | | | Specimen, | | | CENTER - | | | Stool | | | LABORATORY | | + +--------+ + + + + + | Specimen | + + | Stool - Stool | | specimen (specimen) | + + + + + + + | Performing | Address | City/State/Zipcode | Phone Number | | Organization | | | | + + + + + | [facility] | [address] | [place] | [phone] | | [facility] | | [address] | | | - LABORATORY | | | | + + + + + XR Chest AP Portable (09/01/2015 7:18 PM PDT) + + | Specimen | + + | | + + + + + | Narrative | Performed At | + + + | XR CHEST AP PORTABLE 09/01/2015 7:18 PM HISTORY: cirrhosis. | [facility] | | COMPARISON: 03/17/2015. Findings: The heart is mildly enlarged. | | | Aorta is normal. Mediastinum is unremarkable. There is prominence of | | | the pulmonary vasculature with cephalization. Moderate elevation of | | | the right hemidiaphragm is seen. Mild atelectasis is in the left lung | | | base. There are no acute osseous abnormalities. IMPRESSION - | | | Prominence of central pulmonary vasculature with cephalization that | | | can be seen with fluid overload. Mild cardiomegaly. Dictated | | | and Signed by: Austin Crane MD Electronically signed: 09/02/2015 | | | 10:02 AM | | + + + + + | Procedure Note | + + | Jermaine, Rad Results In - 09/02/2015 10:05 AM PDT XR CHEST AP PORTABLE 09/01/2015 7:18 PM | | | | HISTORY: cirrhosis. | | | | COMPARISON: 03/17/2015. | | | | Findings: | | The heart is mildly enlarged. Aorta is normal. Mediastinum is unremarkable. | | There is prominence of the pulmonary vasculature with cephalization. Moderate | | elevation of the right hemidiaphragm is seen. Mild atelectasis is in the left | | lung base. There are no acute osseous abnormalities. | | | | IMPRESSION - | | Prominence of central pulmonary vasculature with cephalization that can be seen | | with fluid overload. | | | | Mild cardiomegaly. | | | | Dictated and Signed by: Austin Crane MD | | Electronically signed: 09/02/2015 10:02 AM | + + + +---------+ + + | Performing | Address | City/State/Zipcode | Phone Number | | Organization | | | | + +---------+ + + | [facility] | | | | + +---------+ + + Magnesium (09/01/2015 7:08 PM PDT) + +---------+ + + + | Component | Value | Ref Range | Performed | Pathologist | | | | | At | Signature | + +---------+ + + + | Magnesium | 1.1 (L) | 1.8 - 2.5 mg/dL | [facility] | | | | [...] [address] | [place] | [phone] | | [facility] | | [address] | | | - LABORATORY | | | | + + + + + Ammonia (09/01/2015 7:08 PM PDT) + +--------+ + + + | Component | Value | Ref Range | Performed | Pathologist | | | | | At | Signature | + +--------+ + + + | Ammonia | 62 (H) | 11 - 35 umol/L | [facility] | | | | | [...] + | [facility] | [address] | [place] | [phone] | | [facility] | | [address] | | | - LABORATORY | | | | + + + + + Comprehensive Metabolic Panel (09/01/2015 7:08 PM PDT) + + + + + + | Component | Value | Ref Range | Performed | Pathologist | | | | | At | Signature | + + + + + + | Na | 126 (L) | 136 - 149 | [facility] | | | | | mmol/L | [facility] | | | | | | MEDICAL | | | | | | CENTER - | | | | | | LABORATORY | | + + + + + + | K | 3.3 (L) | 3.5 - 5.1 | [facility] | | | | | mmol/L | [facility] | | | | | | MEDICAL | | | | | | CENTER - | | | | | | LABORATORY | | + + + + + + | Cl | 97 (L) | 98 - 109 mmol/L | [facility] | | | | | | [facility] | | | | | | MEDICAL | | | | | | CENTER - | | | | | | LABORATORY | | + + + + + + | CO2 | 20 (L) | 24 - 31 mmol/L | [facility] | | | | | | [facility] | | | | | | MEDICAL | | | | | | CENTER - | | | | | | LABORATORY | | + + + + + + | Anion Gap | 9 | 3 - 16 mmol/L | [facility] | | | | | | [facility] | | | | | | MEDICAL | | | | | | CENTER - | | | | | | LABORATORY | | + + + + + + | Glucose | 82 | 70 - 109 mg/dL | [facility] [...] 0.48 (L) | 0.60 - 1.30 | [facility] | | | | | mg/dL | [facility] | | | | | | MEDICAL | | | | | | CENTER - | | | | | | LABORATORY | | + + + + + + | eGFR, | >60Comment: GLOMERULAR | >=60 | [facility] | | | non- | FILTRATION | mL/min/1.73m2 | [facility] | | | [place] | RATE,ESTIMATED | | MEDICAL | | | | mL/min/1.12x0Ursb than | | CENTER - | | [...] + + + + | Albumin | 1.2 (L) | 3.2 - 5.0 g/dL | [facility] | | | | | | [facility] | | | | | | MEDICAL | | | | | | CENTER - | | | | | | LABORATORY | | + + + + + + | Bilirubin | 1.2 | 0.1 - 1.5 mg/dL | [facility] | | | Total | | | [facility] | | | | | | MEDICAL | | | | | | CENTER - | | | | | | LABORATORY | | + + + + + + | Total | 6.0 | 6.0 - 7.8 g/dL | [facility] | | | Protein | | | [facility] | | | | | | MEDICAL | | | | | | CENTER - | | | | | | LABORATORY | | + + + + + + | AST | 34 | 10 - 42 U/L | [facility] | | | | | | [facility] | | | | | | MEDICAL | | | | | | CENTER - | | | | | | LABORATORY | | + + + + + + | ALT | 11 | 6 - 45 U/L | [facility] | | | | | | [facility] | | | | | | MEDICAL | | | | | | CENTER - | | | | | | LABORATORY | | + + + + + + | Alkaline | 113 (H) | 40 - 110 U/L | [...] + + + | Albumin/Joana | 0.3 (L) | 0.8 - 2.0 | [facility] | | | bulin Ratio | | | [facility] | | | | | | MEDICAL | | | | | | CENTER - | | | | | | LABORATORY | | + + + + + + | BUN/Creatin | 8.3 | | [facility] | | | ine [...] [address] | [place] | [phone] | | [facility] | | [address] | | | - LABORATORY | | | | + + + + + CBC with Differential (09/01/2015 7:08 PM PDT) + + + + + + | Component | Value | Ref Range | Performed | Pathologist | | | | | At | Signature | + + + + + + | White Blood | 4.7 | 4.0 - 11.0 K/uL | [facility] | | | Cells | | | [facility] | | | | | | MEDICAL | | | | | | CENTER - | | | | | | LABORATORY | | + + + + + + | Red Blood | 2.44 (L) | 3.70 - 5.20 | [facility] | | | Cells | | M/uL | [facility] | | | | | | MEDICAL | | | | | | CENTER - | | | | | | LABORATORY | | + + + + + + | Hemoglobin | 7.5 (LL)Comment: | 11.5 - 16.0 | [facility] | | | | Critical Result called | g/dL | [facility] | | | | to and read back by | | MEDICAL | | | | ALEX DING on | | CENTER - | | | | 09/01/2015 at 19:56 by | | LABORATORY | | | | Ricardo Joyce. | | | | + + + + + + | Hematocrit | 22.5 (L) | 34.0 - 47.0 % | [facility] | | | | | | [facility] | | | | | | [facility] | | | | | | CENTER - | | | | | | LABORATORY | | + + + + + + | MCV | 92.2 | 83.0 - 101.0 fL | [facility] | | | | | | [facility] | | | | | | [facility] | | | | | | [facility] - | | | | | | LABORATORY | | + + + + + + | MCH | 30.6 | 28.0 - 35.0 pg | [facility] [...] + + + + | RDW-CV | 17.1 (H) | <15.0 % | [facility] | | | | | | [facility] | | | | | | [facility] | | | | | | CENTER - | | | | | | LABORATORY | | + + + + + + | Platelet | 120 (L) | 140 - 440 K/uL | [facility] | | | Count | | | [facility] | | | | | | [facility] | | | | | | [facility] - | | | | | | LABORATORY | | + + + + + + | MPV | 7.7 | fL | [facility] | | | | | | [facility] | | | | | | [facility] | | | | | | C[facility] - | | | | | | LABORATORY | | + + + + + + | % | 60.6 | 45.0 - 82.0 % | [facility] | | | Neutrophils | | | [facility] | | | | | | [facility]ICAL | | | | | | CENTER - | | | | | | LABORATORY | | + + + + + + | % | 13.6 (L) | 20.0 - 45.0 % | [facility] | | | Lymphocytes | | | [facility] | | | | | | MEDICAL | | | | | | CENTER - | | | | | | LABORATORY | | + + + + + + | % Monocytes | 18.7 (H) | 4.0 - 12.0 % | [facility] | | | | | | [facility] | | | | | | [facility] | | | | | | C[facility] - | | | | | | LABORATORY | | + + + + + + | % | 5.9 (H) | 0.0 - 5.0 % | [facility] | | | Eosinophils | | | [facility] | | | | | | [facility]ICAL | | | | | | CENTER - | | | | | | LABORATORY | | + + + + + + | % Basophils | 1.2 (H) | 0.0 - 1.0 % | [facility] | | | | | | [facility] | | | | | | [facility] | | | | | | CENTER - | | | | | | LABORATORY | | + + + + + + | Absolute | 2.80 | 1.80 - 8.50 | [facility] | [...] + + + + | Absolute | 0.90 | 0.00 - 1.00 | [facility] | | | Monocytes | | K/uL | [facility] | | | | | | [facility] | | | | | | CENTER - | | | | | | LABORATORY | | + + + + + + | Absolute | 0.30 | 0.00 - 0.40 | [facility] | | | Eosinophils | | K/uL | [facility] | | | | | | [facility]ICAL | | | | | | CENTER - | | | | | | LABORATORY | | + + + + + + | Absolute | 0.10 | 0.00 - 0.10 | [facility] | | | Basophils | | K/uL | [facility] | | | | [...] [address] | [place] | [phone] | | [facility] | | [id number] | | | - LABORATORY | | | | + + + + + Type and Screen (09/01/2015 7:06 PM PDT) + + + + + + | Component | Value | Ref Range | Performed | Pathologist | | | | | At | Signature | + + + + + + | ABO | O | | [facility] | | | | | | [facility] | | | | | | [facility] | | | | | | CENTER - | | | | | | BLOOD BANK | | + + + + + + | Rh Type | Positive | | [facility] | | | | | | [facility] | | | | | | [facility] | | | | | | CENTER - | | | | | | BLOOD BANK | | + + + + + + | Antibody | Negative | | [facility] | | | Screen | | | [facility] | | | | | | MEDICAL | | | | | | CENTER - | | | | | | BLOOD BANK | | + + + + + + + + | Specimen | + + | Blood specimen | | (specimen) | + + + + + + + | Performing | Address | City/State/Zipcode | Phone Number | | Organization | | | | + + + + + | [facility] | [address] | [place] | | | [facility] | | [address] | | | - BLOOD BANK | | | | + + + + + Culture, MRSA (09/01/2015 5:31 PM PDT) + + + + + + | Component | Value | Ref Range | Performed | Pathologist | | | | | At | Signature | + + + + + + | Culture | Negative for MRSA by | | [facility] | | | | chromogenic agar method | | [facility] | | | | | | MEDICAL [...] [address] | [place] | [phone] | | [facility] | | [address] | | | - LABORATORY | | | | + + + + + ECG - EXTERNAL SCAN (09/01/2015 12:00 AM PDT) + + + | Narrative | Performed At | + + + | Ordered by an | | | unspecified provider. | | + + + DIAGNOSTIC REPORT - EXTERNAL SCAN (03/31/2015 12:00 AM PST) + + + | Narrative | Performed At | + + + | Ordered by an | | | unspecified provider. | | + + + documented in this encounter Visit Diagnoses Not on filedocumented in this encounter
--- OUTSIDE RECORDS SUMMARY | ~2020-01-23 | XMS | Encounter Summary ---
Demographics + + + | Address | [address] | | | [place] [address] | + + + | Home Phone | | + + + | Preferred Language | Unknown | + + + | Marital Status | Single | + + + | Shinto Affiliation | 1041 | + + + | Race | or | + + + | Ethnic Group | Not or | + + + Author + + + | Author | [facility] | | | and [place] | + + + | Organization | [facility] | | | and [place] | + + + | Address | Unknown | + + + | Phone | Unavailable | + + + Support + + + + + | Name | Relationship | Address | Phone | + + + + + | Joanne Phma | ECON | [address] | | | | | [place] | | | | | [phone] | | + + + + + | Viktor Son | EDDIE | Unknown | | + + + + + | Edd Gill | ECON | Unknown | | + + + + + | Conner Barber | ECON | Unknown | | + + + + + Care Team Providers + +------+ + | Care Triage Specialist Name | Role | Phone | + +------+ + PCP | Unavailable | + +------+ + Encounter Details +--------+ + + + + | Date | Type | Department | Care Team | Description | +--------+ + + + + | 10/04/ | Hospital | [facility] | Carmen, | Alcohol withdrawal | | 2015 - | Encounter | [facility] [address] | MD [address] | seizure, | | | | [address] | [address] | uncomplicated (HCC); | | 10/07/ | | [place], [place] | [place] [address] | Urinary tract | | 2014 | | [address] | [phone] | infection with | | | | [phone] | | hematuria, site | | | | | | unspecified; Hepatic | | | | | | encephalopathy | | | | | | ([facility]); Anemia, | | | | | | unspecified anemia | | | | | | type; | | | | | | Thrombocytopenia | | | | | | ([facility]); | | | | | | Lymphocytopenia; | | | | | | Delirium tremens | | | | | | ([facility]); Alcohol | | | | | | abuse; Seizure | | | | | | disorder, secondary | | | | | | ([facility]) | +--------+ + + + + Social [...] documented as of this encounter Discharge Summaries Precious Miller MD - 10/07/2014 9:32 AM PDT Discharge Summaries by Precious Miller MD at 10/07/1432 Author: Precious Miller MD Service: Hospitalist Author Type: Physician Filed: 10/07/1437 Date of Service: 10/07/14931 Status: Signed Software Quality Engineer: Precious Miller MD (Physician) Discharge Summary Date of Admission: 10/04/2014 Date of Discharge: 10/07/2014 Treatment Team: Admitting Provider: Deonte Morales MD Discharging Provider: Precious Miller MD Discharge Diagnoses: Principal Problem: Seizure disorder, secondary (HCC) Active Problems: Thrombocytopenia, unspecified (HCC) Alcohol dependence (HCC) Urinary tract infection, site not specified (UTI) Malnutrition of moderate degree (HCC) Hepatic encephalopathy Hospital Course: Shaila Son is a 44 y.o. female who was admitted on 10/04/2014 after [place]. She was transferred to [facility]. She was found to have elevated NH3 and h epatic encephalopathy due to cirrhosis and alcohol abuse. Her seizure was felt to be due to alcohol withdrawal. EEG was normal. She was placed on CIWA and given lactulose and rapidl y improved. She also was found to have a UTI with strep agalactiae. She is being discharg ed on Keflex for this. She was counseled about compliance with her medications for her cirr hosis and the need to stop alcohol use. She was seen by Case Management for [facility] for alcohol dependence. On the day of d/c she is ambulatory. Her CIWA score is 2 with only a mild tremor. Discharge Exam and Data: Vital Signs: BP 121/64 | Pulse 81 | Temp(Src) 98.3 F (36.8 C) (Oral) | Resp 18 | Ht 1.702 m (5' 7") | Wt 58.741 kg (129 lb 8 oz) | BMI 20.28 kg/m2 | SpO2 99% | ? No Physical Exam Constitutional: She is oriented to person, place, and time. She appears well-developed and well-nourished. No distress. HENT: Head: Normocephalic. Eyes: Pupils are equal, round, and reactive to light. Cardiovascular: Normal rate. Pulmonary/Chest: Effort normal. Abdominal: Soft. Musculoskeletal: Normal range of motion. Neurological: She is alert and oriented to person, place, and time. Mild tremor Skin: Skin is warm. Psychiatric: She has a normal mood and affect. Nursing note and vitals reviewed. Recent Labs Recent Labs Lab 10/06/14 0614 WBC 3.35* HGB 9.7* HCT 30.4* PLT 66* Recent Labs Lab 10/07/14 0627 NA 138 K 4.1 CL 108 CO2 20* BUN 6* CREATININE 0.96 Recent Labs Lab 10/05/14 0150 INR 1.2 Recent Radiology Results Xr Chest Pa And Lateral 10/05/2014 FINDINGS/ IMPRESSION: Lungs are clear. No pleural effusion, no pneumothorax. Heart size is normal. Mediastinal contours are normal. No acute osseous abnormality. Joan ctronically signed by Landry Velarde MD on 10/05/2014 7:10 AM Ultrasound Abdomen Limited 10/05/2014 1. No ascites. Electronically signed by Castillo Diaz MD on Oct 05 7:26AM Referring Provider Line: [phone] ID: [id number] Head And C-spine Non-contrast 10/05/[address]: No acute intracranial CT abnormality. No evidence of hemorrhage or ma ss effect. There is generalized volume loss. Cervical Spine CT: There is chronic appearing f racture of the left lateral C2 vertebral body. There is no evidence of acute fracture or dis location. RADIA Electronically signed by David Holley MD on Oct 05 2014 1:19AM Refe rring Provider Line: [phone] ID: [id number] Discharge Information: Follow up: PERNELL Luo [address] [place] [id number] In 1 week Medication List START taking these medications cephALEXin 500 MG capsule QTY: 15 capsule Refills: 0 Commonly known as: KEFLEX Take 1 capsule by mouth 3 (three) times daily. thiamine 100 MG tablet QTY: 30 tablet Refills: 11 Commonly known as: VITAMIN B-1 Take 1 tablet by mouth daily. CONTINUE taking these medications amLODIPine 5 MG tablet QTY: 30 tablet Refills: 0 Commonly known as: NORVASC Take 1 tablet by mouth daily. furosemide 20 MG tablet QTY: 30 tablet Refills: 0 Commonly known as: LASIX Take 1 tablet by mouth daily. lactulose 10 GM/15ML solution Refills: 0 Commonly known as: CHRONULAC magnesium oxide 400 MG tablet QTY: 14 tablet Refills: 0 Commonly known as: MAG-OX Take 1 tablet by mouth 2 (two) times daily. multivitamin & minerals w iron/FA 27-0.8 MG Tabs tablet QTY: 30 each Refills: 0 Take 1 tablet by mouth daily. spironolactone 25 MG tablet Refills: 0 Commonly known as: ALDACTONE Where to Get Your Medications These are the prescriptions that you need to pick out hand. You may get the following medications from any pharmacy - cephALEXin 500 MG capsule - thiamine 100 MG tablet Discharge Instructions Diet General Activity as Tolerated Disposition: Home Condition: Stable Code Status: Full Code Discharge took 40 minutes, to include final examination, discussion of admission, and prepa ration of prescriptions, instructions for on-going care, follow-up and documentation of disc harge summary. documented in thi s encounter Progress Notes Conversion Transaction, Provider Unknown - 10/07/2014 11:59 AM PDTFormatting of this note m ight be different from the original. Nurse Progress Note by Flora Seaman RN at 10/07/14 4369 Author: Flora Seaman RN Service: (none) Author Type: Registered Nurse Filed: 10/07/14 1200 Date of Service: 10/07/14 4213 Status: Signed Software Quality Engineer: Flora Seaman RN (Registered Nurse) Pt. D/C home via private vehicle. Belongings with patient. Pt. Education re: medications, f /u appointments, discharge instructions completed. All questions answered and Pt. States she understands. Precious Anguiano MD - 10/06/2014 8:18 AM PDTFormatting of this note might be different from th e original. Progress Notes by Precious Miller MD at 06/817 Author: Precious Miller MD Service: Hospitalist Author Type: Physician Filed: 10/06/14826 Date of Service: 10/06/14817 Status: Signed Software Quality Engineer: Precious Miller MD (Physician) [facility] Service: Hospitalist Progress Note SUBJECTIVE Patient Summary: 44 y/o F with h/o alcohol dependence, cirrhosis transferred from [facility] on 10/05 with alcohol withdrawl seizure and fever. Had pyuria and elevated NH3 on admission. Events Overnight: Stable overnight. No seizures. More alert this morning. Up walki ng with minimal assist. OBJECTIVE Vital Signs: Blood pressure 140/80, pulse 78, temperature 98.8 F (37.1 C), temperature source Oral, resp. rate 18, height 1.702 m (5' 7"), weight 61.8 kg (136 lb 3.9 oz), SpO2 100 %, not curre ntly . Physical Exam Constitutional: She is oriented to person, place, and time. She appears well-developed and well-nourished. Mildly tremulous HENT: Head: Normocephalic. Eyes: Pupils are equal, round, and reactive to light. No scleral icterus. Neck: Normal range of motion. No JVD present. Cardiovascular: Normal rate. Pulmonary/Chest: Effort normal. Abdominal: Soft. Bowel sounds are normal. Musculoskeletal: Normal range of motion. She exhibits no edema. Neurological: She is alert and oriented to person, place, and time. Skin: Skin is warm and dry. Psychiatric: She has a normal mood and affect. Nursing note and vitals reviewed. MEDS: amLODIPine 5 mg Oral Daily famotidine 20 mg Oral BID Or famotidine 20 mg Intravenous BID folic acid (FOLVITE) IVPB 1 mg Intravenous Daily Or multivitamin & minerals w iron/FA 1 tablet Oral Daily furosemide 20 mg Oral Daily lactulose 20 g Oral TID LORazepam 1 mg Intravenous QPM magnesium oxide 400 mg Oral BID piperacillin-tazobactam 3.375 g Intravenous Q8H spironolactone 25 mg Oral Daily thiamine (VITAMIN B1) IVPB 100 mg Intravenous Q24H Or thiamine 100 mg Oral Q24H DATA Recent Labs Lab 10/06/14 0614 10/05/14 0150 WBC 3.35* 4.10 HGB 9.7* 10.1* HCT 30.4* 30.5* PLT 66* 62* Recent Labs Lab 10/06/14 0614 10/05/14 0150 NA 131* 140 K 3.5 3.4* CL 104 105 CO2 23 24 BUN 6* 8 CREATININE 0.57 0.82 PROT 6.4 -- BILITOT 1.2 -- ALT 18 -- AST 47* -- Recent Labs Lab 10/05/14 0150 INR 1.2 PROBLEM LIST Principal Problem: Seizure disorder, secondary (HCC) Active Problems: Thrombocytopenia, unspecified (HCC) Alcohol dependence (HCC) Urinary tract infection, site not specified (UTI) Malnutrition of moderate degree (HCC) IMPRESSION/PLAN: 1. Alcohol withdrawal seizure- Had EEG yesterday which was normal. Has had no recurrent s eizures. No indication for seizure medication at this time. 2. Alcohol dependence- currently on CIWA. Has some mild tremulousness but vitals are stab le. Continue CIWA at this time. Case Management to discuss alcohol rehab options with mayoc ent. 3. UTI- no fever overnight. Urine culture still pending. On zosyn but will change to ora l abx as soon as culture returns. 4. Pancytopenia- due to alcohol abuse. 5. Hepatic encephalopathy/metabolic encephalopathy on admission- back on lactulose and men karolina status improved. She appears much better than yesterday. Hopefully will continue to improve and possible d/ c tomorrow if better. Precious Miller MD 10/06/2014 onversion Transa ction, Provider Unknown - 10/05/2014 3:48 PM PDT Case Management by Fortino Argueta RN at 10/05/14 3152 Author: Fortino Argueta RN Service: (none) Author Type: [employer] Filed: 10/05/14 9220 Date of Service: 10/05/14 4437 Status: Signed Software Quality Engineer: Fortino Argueta RN ([employer]) Met with Shaila to discuss DC plans. She is planning to go home with her family. She denies home medical equipment, or any outpatient medical services such as dialysis or coumadin cli woody. 10/05/14 7402 Discharge Planning Evaluation Admitting Diagnosis Seizure /ETOH Readmission No Living Arrangements Family members Support Systems Family members Type of Residence Private residence Bathrooms on 1st Floor 1-Full Independent with ADL's Yes Independent with Mobility Yes Home Care Services No Caregiver after Discharge No Mental Status Oriented Anticipated Discharge Plan Post Acute Care Needs None at this time Plan communicated to patient/family Yes Resources Financial concerns No Transportation issues No Patient/Family concerns No Prescription Plan Yes Name of Pharmacy [facility] Previous home health equipment No Vascular access device No Ostomy/Drains/Appliances No Anticipated Disposition Facility Type Home Medicare Important Message (DEIDRE) Not applicable Met with: Shaila and discussed discharge planning, Pt is a 44 y.o., female Patient's PCP is: Efra Holguin Patient's insurance: Medicaid and [employer]--she has an appt there . Coverage concerns: Medication coverage/concerns: None [facility]: Community resources utilized / needed: None at this time Assistance in transportation: Family to provide Identification of any specific education / training: None Barriers to Discharge / Alternative housing needed: None Anticipated DCP: Home with family members Fortino Argueta onver miriam Transaction, Provider Unknown - 10/05/2014 8:37 AM PDT Nurse Progress Note by Yamileth Orozco RN at 10/05/14 0837 Author: Yamileth Orozco RN Service: (none) Author Type: Registered Nurse Filed: 10/05/14 0839 Date of Service: 10/05/1437 Status: Signed Software Quality Engineer: Yamileth Orozco RN (Registered Nurse) Patient somnolent throughout assessment. Able to open eyes to pain then falls back to sleep . VSS. Will hold PO meds until patient alert enough to swallow pills without concern of aspi ration. Will continue to closely monitor. Yamileth Orozco RN 10/05/2014 8:38 AM Jacob Copeland MD - 10/05/2014 8:10 AM PDT Progress Notes by Jacob Larios MD at 10/05/14809 Author: Jacob Larios MD Service: (none) Author Type: Physician Filed: 10/05/14826 Date of Service: 10/05/14809 Status: Signed Software Quality Engineer: Jacob Larios MD (Physician) [facility] Service: Hospitalist Progress Note Hospital Day: LOS: 1 day Post-Op Day: * No surgery found * SUBJECTIVE Patient Summary: admission H and P Dr. Raines:"The patient is a 44 y.o. female with significant past medical history of Alcohol abuse and dependence, hx of withdrawal seizure s, cirrhosis, hypertension who presents with Fever, seizures Patient with a long history of alcohol abuse and dependence. The patient usually drinks on a daily basis, mainly beer. The last time she drank alcohol was 2-3 days ago. Apparently today she went to the [facility] and that the last thing she remembers before blacking out. Whe n she recovered consciousness she was in the hospital. Apparently the patient had Blease to seizures and generalized tonic-clonic in nature. The patient did receive Ativan and due to the multiple comorbidities the patient was transfer to [facility] for further management. Of n ote the patient does refer some urinary frequency and mild dysuria. Positive fever with a M AXIMUM TEMPERATURE of 101.6 Fahrenheit. The patient denies any chest pain, dyspnea, abdomin al pain, nausea, vomiting, diarrhea. Chest x-ray negative for obvious consolidation. CT of the head came back negative for an acute intracranial abnormality. CT of the neck also neg ative for any acute fracture. At this point the patient will be admitted under the hospital service for further assessment and treatment" Events Overnight: Patient admitted early this morning transferred from [facility] ED, history of alcohol withdrawal seizures, hepatic encephalopathy secondary to ongoing alco holism, apparently had a seizure at the [facility], found to be febrile and transferred to our facility. She was admitted to our facility with a very similar picture back in January 2014 (fevers secondary to UTI, alcohol withdrawal seizures) Since admission patient has been somnolent though following commands, conversing a little, no further reported seizure activities, unable to give additional history. Patient noted to have UTI, started on IV Zosyn, ultrasound of the abdomen was negative for ascites. Ammonia l evel elevated at 84, was able to take lactulose yesterday evening. There is a question of a patient's of compliance with her medications. Scheduled Medications amLODIPine 5 mg Oral Daily famotidine 20 mg Oral BID Or famotidine 20 mg Intravenous BID folic acid (FOLVITE) IVPB 1 mg Intravenous Daily Or multivitamin & minerals w iron/FA 1 tablet Oral Daily furosemide 20 mg Oral Daily lactulose 20 g Oral TID LORazepam 1 mg Intravenous QPM magnesium oxide 400 mg Oral BID piperacillin-tazobactam 3.375 g Intravenous Q8H spironolactone 25 mg Oral Daily thiamine (VITAMIN B1) IVPB 100 mg Intravenous Q24H Or thiamine 100 mg Oral Q24H Continuous Infusions dextrose 5 % and 0.45 % NaCl with KCl 20 mEq 110 mL/hr at 10/05/14 0632 PRN Medications diazepam, diazepam OR diazepam, LORazepam, magnesium sulfate OR magnesium sulfate * *OR magnesium sulfate, ondansetron OR ondansetron, polyethylene glycol, potassium chlo ride OR potassium chloride OR potassium chloride OBJECTIVE Vital Signs: BP 146/80 | Pulse 84 | Temp(Src) 100.5 F (38.1 C) (Oral) | Resp 18 | Ht 1.702 m (5' 7") | Wt 61.8 kg (136 lb 3.9 oz) | BMI 21.33 kg/m2 | SpO2 99% | ? No Temp: [100.4 F (38 C)-101.6 F (38.7 C)] 100.5 F (38.1 C) (10/05 444) BP: (133-170)/(60-88) 146/80 mmHg (10/06 655) Heart Rate: [70-100] 84 (10/06 655) Resp: [16-25] 18 (10/05 444) SpO2: [96 %-99 %] 99 % (10/05 444) Height: [170.2 cm (5' 7")] 170.2 cm (5' 7") (10/05 444) Weight: [61.236 kg (135 lb)-61.8 kg (136 lb 3.9 oz)] 61.8 kg (136 lb 3.9 oz) (10/05 444) BMI (Calculated): [21.4] 21.4 (10/05 444) Physical Exam Constitutional: Patient is sleeping, somnolent, arousable to verbal stimuli, answering basic questions, kno ws her name, where she lives, though does not know where she finds herself, unable to give m uch history of why she is here, she does confirm drinking alcohol, though gives little more history. She looks comfortable, nontoxic-appearing HENT: Head: Normocephalic. Mouth/Throat: No oropharyngeal exudate. Left upper lip, herpetic lesion Eyes: Pupils are equal, round, and reactive to light. No scleral icterus. Cardiovascular: Normal rate. Pulmonary/Chest: Effort normal and breath sounds normal. Abdominal: Soft. Bowel sounds are normal. Musculoskeletal: She exhibits no edema. Ultimate bruising lower* Neurological: Hand tremors noted Skin: Skin is warm. Psychiatric: She has a normal mood and affect. Her behavior is normal. Nursing note and vitals reviewed. DATA CBC: Lab Results Component Value Date WBC 4.10 10/05/2014 RBC 3.38* 10/05/2014 HGB 10.1* 10/05/2014 HCT 30.5* 10/05/2014 MCV 90.4 10/05/2014 MCH 29.9 10/05/2014 MCHC 33.1 10/05/2014 RDW 51.6 10/05/2014 PLT 62* 10/05/2014 MPV 8.5 10/05/2014 DIFFTYPE AUTOMATED 10/05/2014 WBC: Lab Results Component Value Date WBC 4.10 10/05/2014 NEUTABSMAN 1.9 02/11/2014 NEUTROABS 3.16 10/05/2014 NEUTROMAN 63 02/11/2014 LYMPHOABS 0.3* 02/11/2014 LYMPHOMAN 9 02/11/2014 LYMPHSABS 0.34* 10/05/2014 LYMPHOPCT 8.17 10/05/2014 MONOABSMAN 0.7 02/11/2014 MONOMAN 21 02/11/2014 MONOPCT 13.35 10/05/2014 EOSINOABS 0.2 02/11/2014 EOSINOMAN 7 02/11/2014 EOSABS 0.01 10/05/2014 EOSPCT 0.16 10/05/2014 BASOSABS 0.05 10/05/2014 BASOPCT 1.26 10/05/2014 PLTEST DECREASED 02/10/2014 BANDSPCT 1 02/10/2014 MYELOABS 0.1* 03/26/2013 MYELOPCT 1 03/26/2013 COMDIFF SLIDE SCANNED, AGREES WITH AUTOMATED RESULTS. 07/28/2011 U/A: Lab Results Component Value Date COLORU ORANGE 02/06/2014 CLARITYU CLOUDY 10/05/2014 CLARITYU CLOUDY 02/06/2014 LEUKOCYTESUR MODERATE* 10/05/2014 NITRITE NEGATIVE 10/05/2014 NITRITE NEGATIVE 02/06/2014 UROBILINOGEN 1.0 10/05/2014 UROBILINOGEN 1.0 02/06/2014 PHUR 7.5 10/05/2014 PHUR 7.0 02/06/2014 BLOODU LARGE* 10/05/2014 KETONES NEGATIVE 10/05/2014 BILIRUBINUR NEGATIVE 10/05/2014 BILIRUBINUR SMALL* 02/06/2014 GLUCOSEU NEGATIVE 10/05/2014 PROBLEM LIST Principal Problem: Seizure disorder, secondary (HCC) Active Problems: Thrombocytopenia, unspecified (HCC) Alcohol dependence (HCC) Urinary tract infection, site not specified (UTI) Malnutrition of moderate degree (HCC) ASSESSMENT & PLAN 1. Seizure disorder - Patient has apparent history of recurrent alcohol withdrawal induced seizures - Unsure when her last alcohol consumption was, blood alcohol level was noted to be 21 - Patient noted to be a post ictal at the [facility], did receive IV lorazepam - Presently patient is somnolent/postictal elevated ammonia/hepatic encephalopathy - An EEG has been ordered - Antiepileptics not indicated at this time - Continue to monitor 2. Fever - Patient with significant bacteriuria and pyuria, urine culture, blood cultures pending, e mpirically on IV Zosyn x complicated UTI. - We will hold off on lumbar puncture for now, suspect patient's mentation will clear, as h epatic encephalopathy clears, alcohol withdrawals clear, post ictal. Clears ,treatment for U TI; if no improvement over the next 24-48 hours and would consider lumbar puncture ( herpeti c lesions noted on lip) 3. Hepatic cirrhosis secondary to alcoholism - Elevated ammonia level 84, hepatic encephalopathy - Resume lactulose, spironolactone - Ultrasound negative for ascites - Chronic thrombocytopenia, stable - Asterixis noted; hepatic encephalopathy versus alcohol withdrawals; continue lactulose mo nitor ammonia levels, use lorazepam CIWA protocol 4. Hypomagnesemia, hypo-kalemia - Replaced with electrolyte protocol Disposition: Code Status: Full Code Jacob Larios MD 10/05/2014 onversion Transact ion, Provider Unknown - 10/05/2014 5:25 AM PDTFormatting of this note might be different fr om the original. Progress Notes by Vandana Mcnally RPH at 10/05/14524 Author: Vandana Mcnally RPH Service: (none) Author Type: Pharmacist Filed: 10/05/14524 Date of Service: 10/05/14524 Status: Signed Software Quality Engineer: Vandana Mcnally RPH (Pharmacist) Clinical Pharmacy Note: Renal Monitoring & Extended Interval Zosyn Dosing Shaila Son 44 y.o. female Height: 170.2 cm Weight: 61.8 kg CREATININE: 0.82 (10/05/14 0150) Estimated creatinine clearance - 86 mL/min NEUTROPHILS ABS Date Value Ref Range Status 10/05/2014 3.16 1.90 - 7.40 K/uL Final Comment: Testing performed at [facility];[address] [place] [address];[place] [address] Pharmacy dosing for renal function per Dr. [...] in renal function and adjust accordingly per protocol. Vandana Mcnally PharmKenzie 10/05/2014 5:25 AM docume nted in this encounter H&P Notes Deonte Morales MD - 10/05/2014 3:00 AM PDTFormatting of this note might be diffe rent from the original. H&P by Deonte Morales MD at 10/05/14 0300 Author: Deonte Morales MD Service: Hospitalist Author Type: Physician Filed: 10/05/14 0344 Date of Service: 10/05/14 030 Status: Signed Software Quality Engineer: Deonte Morales MD (Physician) [facility] Service: Hospitalist Admission History & Physical Date of Admission: 10/04/2014 Requesting Physician: Dr Rich, Emergency Department Reason for Admission: Withdrawal seizure, UTI / Trasnfer History Obtained From: patient CHIEF COMPLAINT: Fever HISTORY OF PRESENT ILLNESS The patient is a 44 y.o. female with significant past medical history of Alcohol abuse and dependence, hx of withdrawal seizures, cirrhosis, hypertension who presents with Fever, se izures Patient with a long history of alcohol abuse and dependence. The patient usually drinks on a daily basis, mainly beer. The last time she drank alcohol was 2-3 days ago. [facility] and that the last thing she remembers before blacking out. Whe n she recovered consciousness she was in the hospital. Apparently the patient had Blease to seizures and generalized tonic-clonic in nature. The patient did receive Ativan and due to the multiple comorbidities the patient was transfer to [facility] for further management. Of n ote the patient does refer some urinary frequency and mild dysuria. Positive fever with a M AXIMUM TEMPERATURE of 101.6 Fahrenheit. The patient denies any chest pain, dyspnea, abdomin al pain, nausea, vomiting, diarrhea. Chest x-ray negative for obvious consolidation. CT of the head came back negative for an acute intracranial abnormality. CT of the neck also neg ative for any acute fracture. At this point the patient will be admitted under the hospital service for further assessment and treatment REVIEW OF SYSTEMS Review of Systems Constitutional: Positive for fever and fatigue. Negative for chills. HENT: Negative for postnasal drip, rhinorrhea and sore throat. Respiratory: Negative for apnea, cough, choking, shortness of breath and wheezing. Cardiovascular: Negative for chest pain, palpitations and leg swelling. Gastrointestinal: Negative for nausea, vomiting, diarrhea, constipation and abdominal diste ntion. Genitourinary: Positive for frequency. Negative for dysuria, urgency, flank pain and diffic ulty urinating. Skin: Negative for color change. Neurological: Positive for seizures. Negative for dizziness, syncope, weakness and headache s. Psychiatric/Behavioral: Positive for confusion. Negative for agitation. Past Medical History Diagnosis Date Hemorrhage of gastrointestinal tract, unspecified Liver disease Hypertension Anemia Seizures (HCC) Past Surgical History Procedure Laterality Date Esophagogastroduodenoscopy 07/30/2011 Procedure: ESOPHAGOGASTRODUODENOSCOPY; Surgeon: Mitchell Stewart IV, MD; Location: [facility]; Service: Gastroenterology; Laterality: N/A; anesthesia assist if available since may be difficult to sedate Hx of tracheostomy No current facility-administered medications on file prior to encounter. Current Outpatient Prescriptions on File Prior to Encounter Medication Sig Dispense Refill furosemide (LASIX) 20 MG tablet Take 1 tablet by mouth daily. 30 tablet 0 magnesium oxide (MAG-OX) 400 MG tablet Take 1 tablet by mouth 2 (two) times daily. 14 t ablet 0 Vit-Fe Fumarate-FA ( MULTIVITAMIN & MINERALS W IRON/FA) 27-0.8 MG TABS tablet Take 1 tablet by mouth daily. 30 each 0 amLODIPine (NORVASC) 5 MG tablet Take 1 tablet by mouth daily. 30 tablet 0 Immunizations: Influenza: Pneumoccocal: Allergies Allergen Reactions Aspirin Anaphylaxis Pt unable to recall, this information came from [facility] record Lactose Anaphylaxis Pt unable to recall, this information came from [facility] record Ciprofloxacin Other (See Comments) Pt. Unable to recall, this information came from [facility] record Ibuprofen Other (See Comments) Pt. Unable to recall, this information came from [facility] record (Not in a hospital admission) History reviewed. No pertinent family history. History Social History Marital Status: Single Spouse Name: N/A Number of Children: N/A Years of Education: N/A Occupational History Not on file. Social History Main Topics Smoking status: Former Smoker Smokeless tobacco: Not on file Alcohol Use: Yes Comment: 6 pack per day Drug Use: No Sexual Activity: Not on file Other Topics Concern Not on file Social History Narrative PHYSICAL EXAM Vital Signs: BP 168/84 | Pulse 82 | Temp(Src) 101.2 F (38.4 C) (Oral) | Resp 20 | Wt 61.236 kg (135 lb) | SpO2 97% Physical Exam Constitutional: She appears well-developed. HENT: Head: Normocephalic and atraumatic. Eyes: EOM are normal. Pupils are equal, round, and reactive to light. Neck: Neck supple. No JVD present. Cardiovascular: Normal rate, regular rhythm and normal heart sounds. Exam reveals no vasques p and no friction rub. No murmur heard. Pulmonary/Chest: Effort normal. No respiratory distress. She has no wheezes. She has no ral es. She exhibits no tenderness. Abdominal: Soft. She exhibits no distension and no mass. There is no tenderness. There is n o rebound and no guarding. No hernia. Musculoskeletal: She exhibits no edema. Neurological: She is alert. Disoriented in time and place. But able to respond to verbal stimuli. NO gross signs of foc alization. Negative kernig and brudzinsky DATA Results Procedure Component Value Units Date/Time Blood Culture Set 2 [[id number]] Collected: 10/05/14149 Specimen Information: Blood / Blood Updated: 10/05/14300 Blood Culture Set 1 [[id number]] Collected: 10/05/14149 Specimen Information: Blood / Blood Updated: 10/05/14300 hCG, serum, qualitative [[id number]] Collected: 10/05/14149 Specimen Information: Blood Updated: 10/05/14238 TEST,SERUM NEGATIVE Basic Metabolic Panel [[id number]] (Abnormal) Collected: 10/05/14149 Specimen Information: Blood Updated: 10/05/14238 SODIUM 140 mmol/L POTASSIUM 3.4 (L) mmol/L CHLORIDE 105 mmol/L CO2 24 mmol/L ANION GAP AGAP 14 mmol/L GLUCOSE 99 mg/dL BUN 8 mg/dL CREATININE 0.82 mg/dL BUN/CREAT 9 CALCIUM 8.2 (L) mg/dL EGFR >60 mL/min/1.73m2 CBC with differential [[id number]] (Abnormal) Collected: 10/05/14149 Specimen Information: Blood Updated: 10/05/14221 WBC 4.10 K/uL RBC 3.38 (L) M/uL HGB 10.1 (L) g/dL HCT 30.5 (L) % MCV 90.4 fl MCH 29.9 pg MCHC 33.1 g/dL RDW SD 51.6 fl PLT 62 (L) K/uL MPV 8.5 fl DIFF TYPE AUTOMATED NEUTROPHILS 77.06 % LYMPHOCYTES 8.17 % MONOCYTES 13.35 % EOSINOPHILS 0.16 % BASOPHILS 1.26 % NEUTROPHILS ABS 3.16 K/uL LYMPHOCYTES ABS 0.34 (L) K/uL MONOCYTES ABS 0.55 K/uL EOSINOPHILS ABS 0.01 K/uL BASOPHILS ABS 0.05 K/uL MRSA by PCR [[id number]] Collected: 10/04/14 2352 Specimen Information: Nasopharyngeal / Nares(Nose) Updated: 10/05/14 0111 SOURCE NARES(NOSE) MRSA PCR NEGATIVE labs from [place] shows White blood cell 2.5, hemoglobin of 9.7, hematocrit of 31.1, platelet count of 61, INR 1.1, UA-negative nitrates, 25 leukocyte esterase, 15 white blood cells, 1+ bacteria, negative ep ithelials PROBLEM LIST Principal Problem: Urinary tract infection, site not specified (UTI) Active Problems: Thrombocytopenia, unspecified (HCC) Seizure disorder, secondary (HCC) Alcohol dependence (HCC) Malnutrition of moderate degree (HCC) ASSESSMENT & PLAN Impression patient is a 44 y.o. female with significant past medical history of Alcohol abuse and dep endence, hx of withdrawal seizures, cirrhosis with portal hypertension, ascites who presents with Fever, seizures. Transfer from [facility]. Negative signs of meningismus a t physical exam UA - abnormal CxR - no obvious consolidation Ammonia - 84 CT head - No acute intracranial abnormality. Cervical Spine CT - Chronic appearing fracture of the left lateral C2 vertebral body. No evidence of acute fracture Assessment -Seizures. History and physical consistent with alcohol withdrawal. -Abnormal UA. Consistent with UTI -Alcohol abuse and dependence -Fever. Possibly due to underlying UTI, but will rule out other causes including SBP and as piration pneumonia -Encephalopathy. Probably due to hepatic encephalopathy. Other causes include delirium from underlying infection -Thrombocytopenia. Probably alcohol related, hypersplenism -Anemia. With no current signs of bleeding. Probably anemia of chronic disease, alcohol rel ated Plan Will admit to inpatient Low dose lasix with spironolactone Lactulose with goal to have 3 BM daily Electrolyte replacement therapy CIWA per protocol Seizure precautions, fall precautions Ativan PRN for seizures Ativan QHS for the next 3 nights EEG Oxygen continuous for now UA, urine culture, BC x 2 Ultrasound and if positive ascites will do Paracentesis, diagnostic IV zosyn for now. Further antibiotic titration pending culture results IV albumin today and in the third day Long-term prognosis poor unless Patient stop alcohol use. [employer] consult to see the p atient will benefit from inpatient detox program DVT GI prophylaxis. SCD only due to bleeding risk Code status -full code Disposition: Inpatient Code Status: Prior Primary Care Physician: Efra Morales MD 10/05/2014 documented i n this encounter Procedure Notes Conversion Transaction, Provider Unknown - 10/05/2014 1:48 PM PDTFormatting of this note m ight be different from the original. Procedures by Ricky BarraganEEG/EP T. at 10/05/14 9905 Author: Ricky BarraganEEG/EP TDania Service: Neurology Author Type: Registered EEG and Evoked Potential Tech Filed: 10/05/14 1348 Date of Service: 10/05/141347 Status: Signed Software Quality Engineer: Ricky BarraganEEG/EP TDania (Registered EEG and Evoked Potential Tech) Procedure Orders: 1. EEG [[id number]] ordered by Deonte Morales MD at 10/05/14 0343 EEG REPORT Patient: Shaila Son ID: [id number] : 1970 [age]: [age] Gender: Female Height: Weight: Physician: Marjorie Simmons MD Home Health Nurse Licensed Practical: Juan Referring Physician: Carmen Recording Date: 10/05/2014 Time: 10:54 AM Report Date: 10/05/2014 Recorded Time: 20.8 min. Medications: spirolactone History: h/o alcohol abuse and withdrawal seizures, hepatic cirrhosis admitted after seizure and remains lethargic Comments: # 411 Record- drowsy, sleep, PS, no HV (too sleepy) Tech Imp- WNL GENERAL DESCRIPTION: This was a 19 channel drowsy and sleep EEG recording with Internation[place] l 10/20 electrode placements. The background activity consisted of symmetrical, medium ampli tude 8-10 Hz alpha frequency. ACTIVATION & SLEEP: Photic stimulation produced no significant changes to the background ac tivity.The drowsy portion of the record was characterized by attenuation of the background a ctivity with the presence of low amplitude activity seen diffusely. Stage II sleep was achie ronen. Symmetrical sleep spindles and vertex sharp waves were intermixed with low to moderate amplitude theta activity. OTHER DATA: N/A CLINICAL IMPRESSION: This EEG is normal. No focal, diffuse or generalized abnormalities wer e noted.No electographic seizures were recorded.Clinical correlation is recommended. Thank you for the courtesy of this referral. Sincerely, S MD Iris docume nted in this encounter ED Notes Conversion Transaction, Provider Unknown - 10/05/2014 3:19 AM PDTFormatting of this note m ight be different from the original. ED Notes by Xu Villanueva RN at 10/05/14318 Author: Xu Villanueva RN Service: Emergency Department Author Type: Registered Nurse Filed: 10/05/14318 Date of Service: 10/05/14318 Status: Signed Software Quality Engineer: Xu Villanueva RN (Registered Nurse) Dr. Raines (hospitalist) at bedside. Xu Villanueva RN 10/05/14318 onver miriam Transaction, Provider Unknown - 10/05/2014 1:44 AM PDT ED Notes by Xu Villanueva RN at 10/05/14143 Author: Xu Villanueva RN Service: Emergency Department Author Type: Registered Nurse Filed: 10/05/14143 Date of Service: 10/05/14143 Status: Signed Software Quality Engineer: Xu Villanueva RN (Registered Nurse) Lab at bedside Xu Villanueva RN 10/05/14143 onver miriam Transaction, Provider Unknown - 10/05/2014 1:05 AM PDT ED Notes by Xu Villanueva RN at 10/05/14 0105 Author: Xu Villanueva RN Service: Emergency Department Author Type: Registered Nurse Filed: 10/05/14105 Date of Service: 10/05/14104 Status: Signed Software Quality Engineer: Xu Villanueva RN (Registered Nurse) Lab called and notified that blood has not been drawn, informed this still needs to be comp leted. Will start abx after cultures x2 drawn. Xu Villanueva RN 10/05/14105 onver miriam Transaction, Provider Unknown - 10/04/2014 11:44 PM PDT ED Notes by Xu Villanueva RN at 10/04/142343 Author: Xu Villanueva RN Service: Emergency Department Author Type: Registered Nurse Filed: 10/04/142343 Date of Service: 10/04/142343 Status: Signed Software Quality Engineer: Xu Villanueva RN (Registered Nurse) Lab called for blood draw, cultures x2 Xu Villanueva RN 10/04/142343 hitak Leonarda gonzalez DO - 10/04/2014 11:18 PM PDTFormatting of this note might be different from the o riginal. ED Provider Notes by Leonarda Rich DO at 10/04/142317 Author: Leonarda Rich DO Service: Emergency Department Author Type: Physician Filed: 10/06/14 1507 Date of Service: 10/04/142317 Status: Signed Software Quality Engineer: Leonarda Rich DO (Physician) Procedures Additional Documentation Procedures [facility] Department of Emergency Medicine Pre-arrival Provider: Another ED (10/04/142107 : Prince Anand RN) HPI History of Present Illness Patient Identification Shaila Son is a 44 y.o. female. Patient information was obtained from patient and past medical records. History/Exam limitations: Patient has had 3 seizures, no memory of event, somewhat sleepy. Not answering questions well Patient presented to the Emergency Department by: Ambulance Chief Complaint Chief Complaint Patient presents with Seizures Patient presents in transfer from [facility]. She was found down, [place] Evidently had a seizure. Unknown if she struck her head. She is presently complain ing of a headache. She had 2 more seizures at [facility], was treated with ativan, and has had none since. She has a long hx of etoh withdrawal, withdrawal seizures. Was admitted last Apr for the same thing. At that time she had a UTI Strep agalactiae. I do not have sensitivities. Past Medical History Diagnosis Date Hemorrhage of gastrointestinal tract, unspecified Liver disease Hypertension Anemia Seizures (HCC) Past Surgical History Procedure Laterality Date Esophagogastroduodenoscopy 07/30/2011 Procedure: ESOPHAGOGASTRODUODENOSCOPY; Surgeon: Mitchell Stewart IV, MD; Location: [facility]; Service: Gastroenterology; Laterality: N/A; anesthesia assist if available since may be difficult to sedate Hx of tracheostomy Prior to Admission medications Medication Sig Start Date End Date Taking? Authorizing Provider amLODIPine (NORVASC) 5 MG tablet Take 1 tablet by mouth daily. 02/13/14 02/13/15 Micki Redding MD furosemide (LASIX) 20 MG tablet Take 1 tablet by mouth daily. 02/13/14 02/13/15 Micki Redding MD magnesium oxide (MAG-OX) 400 MG tablet Take 1 tablet by mouth 2 (two) times daily. 02/13/14 02/20/14 Micki Redding MD Vit-Fe Fumarate-FA ( MULTIVITAMIN & MINERALS W IRON/FA) 27-0.8 MG TABS tab let Take 1 tablet by mouth daily. 03/28/13 Precious Miller MD Allergies Allergen Reactions Aspirin Anaphylaxis Pt unable to recall, this information came from [facility] record Lactose Anaphylaxis Pt unable to recall, this information came from [facility] record Ciprofloxacin Other (See Comments) Pt. Unable to recall, this information came from [facility] record Ibuprofen Other (See Comments) Pt. Unable to recall, this information came from [facility] record History Social History Marital Status: Single Spouse Name: N/A Number of Children: N/A Years of Education: N/A Occupational History Not on file. Social History Main Topics Smoking status: Former Smoker Smokeless tobacco: Not on file Alcohol Use: Yes Comment: 6 pack per day Drug Use: No Sexual Activity: Not on file Other Topics Concern Not on file Social History Narrative History reviewed. No pertinent family history. ROS Review of Systems Constitutional: Negative for: fever or weight loss EENT: Negative for: irritated eyes, Nosebleed, rhinitis, sore throat Cardiovascular/Respiratory: Negative for: cough, dyspnea, chest pain Gastrointestinal: Negative for: nausea, vomiting, or diarrhea. Denies hematochezia, melen a. Is having mid abdominal pain, not severe Genitourinary: Negative for: hematuria or foul smelling urine Musculoskeletal: Negative for: muscle pain or joint swelling Skin: Negative for: rash or lesion Neuro and psych: See cc Endocrine/Heme/Lymph: Negative for: swollen lymph nodes or easy bruising Physical Exam Physical Exam BP 135/60 | Pulse 100 | Temp(Src) 101.2 F (38.4 C) (Oral) | Resp 18 | Wt 61.236 kg (135 lb) | SpO2 96% Febrile, tachycardic Pulse Oximetry interpretation: Normal GCS: 4 - Opens eyes on own 5 - Alert and oriented 6 - Follows simple motor commands GCS Score: 15 GEN: Groggy ENT: The TMS are neg. Bilaterally. There is no pharygeal injection, the mucous membranes are pink and moist. There is no conjunctival injection. There is no scleral icterus. There i s no nasal discharge or epistaxis. NECK: Supple, no tenderness on palpation, no cervical lymphadenopathy. No JVD CHEST: Breath sounds are equal bilaterally. There are no adventitious sounds. HRRR. No murm urs. No tenderness to palpation over the chest wall. ABD: Soft, BS present and normal. There is no tenderness to palpation. There is no reboun d, guarding, or rigidity. No bruits. No palpable masses. EXTREM: No c/c/e. No joint swelling BACK: No tenderness to palpation. NEURO: Groggy, oriented. Shaking, but no asterixis SKIN: Warm and dry, no rashes ED Course Medical Decision Making and Emergency Department Course ED Department Course Patient presents in transfer with elevated NH4, signs of withdrawals, and etoh withdrawal s eizures. She is also febrile with lab evidence of uti. Review of lab CBC WBC 2500, with a lymphocytopenia, H/H 9.7/31.1 [place] [address] - moderate th rombocytopenia CMP Glucose 89, Na 136, K 3.5 (mild hypokalemia), Cl 107, CO2 21, BUN 7, Cr 0.5, Liver enzy mes - AST mildy elevated at 7 - normal except as noted Urine Mccro >50 RBC, no epis, 15 WBC, 1+ bacteria - consistent with uti UDS neg ETOH low - 21 NH4 84 - markedly elevated CT of head and c spine ordered as patient was found down, not witnessed. Negative for fract ure, dislocation or ICH CXR There is no cardiomegaly. The mediastinum is normal size, the great vessels are normal. The re are no infiltrates, pneumothorax, or pleural effusion. Interpreted independently by rené gillespie at time of service. PA and lat, good technique. [facility] She requires admission as this appears to be a combination of withdrawals seizures, sepsis, and hepatic encephalopathy. Blood culture s have been drawn, urine culture was done at [facility]. I have ordered vancomycin and cef triaxone for her urinary tract infection. I have discussed the case with Dr. Raines who [facility] I reviewed the results of the diagnostic studies with the patient. Explain ed the reason for admission and the admission process. Explained the admission process and t he reason for admission. Records Reviewed Old medical records. Nursing notes. Patient was seen in the emergency department at [facility] and transferred here. Review of lab which was done at 1700 shows a WBC count of 2500, with a normal differential ; hemoglobin 9.7, hematocrit 31.1; Platelet count 61,000 Mildly decreased Urine shows leukocyte esterase, there was 15 WBCs no epithelial 1 plus bacteria consistent with urinary tract infection Glucose 89, BUN 7, creatinine 0.5, sodium 136, potassium 3.5, chloride 107, CO2 is 21, amm onia is 84 markedly elevated urine drug screen is negative, She was admitted with the same problem last April at that time she had a streptococcal ur inary tract infections signs renal insufficiency by basilar pneumonia hepatic encephalopathy . She is noted to be a chronic alcohol abuse. It is noted they attempted an LP there are l ast April and no one was successful. Patient has known history of alcoholwithdrawal, with withdrawal seizures Labs & Radiology Results Laboratory Evaluation Results Procedure Component Value Ref Range Date/Time Blood Culture Set 1 [[id number]] Collected: 10/05/14 0150 Order Status: Completed Updated: 10/06/14834 Specimen Information: Blood / Blood Specimen Description BLOOD SPECIAL REQUESTS LH SPECIAL REQUESTS Result: Testing performed at [facility];[address];[place] [address] CULTURE NO GROWTH CULTURE Result: Testing performed at [facility], [address] [place] [address] Blood Culture Set 2 [[id number]] Collected: 10/05/14149 Order Status: Completed Updated: 10/06/14834 Specimen Information: Blood / Blood Specimen Description BLOOD SPECIAL REQUESTS RH SPECIAL REQUESTS Result: Testing performed at [facility];[address];[place] [address] CULTURE NO GROWTH CULTURE Result: Testing performed at [facility], [address] [place] [address] hCG, serum, qualitative [[id number]] Collected: 10/05/14149 Order Status: Completed Updated: 10/05/14238 Specimen Information: Blood TEST,SERUM NEGATIVE NEGATIVE Basic Metabolic Panel [[id number]] (Abnormal) Collected: 10/05/14149 Order Status: Completed Updated: 10/05/14238 Specimen Information: Blood SODIUM 140 135 - 143 mmol/L POTASSIUM 3.4 (L) 3.5 - 4.9 mmol/L CHLORIDE 105 99 - 109 mmol/L CO2 24 23 - 32 mmol/L ANION GAP AGAP 14 5 - 20 mmol/L GLUCOSE 99 65 - 99 mg/dL BUN 8 8 - 25 mg/dL CREATININE 0.82 0.50 - 1.00 mg/dL BUN/CREAT 9 CALCIUM 8.2 (L) 8.5 - 10.5 mg/dL EGFR >60 >60 mL/min/1.73m2 CBC with differential [[id number]] (Abnormal) Collected: 10/05/14149 Order Status: Completed Updated: 10/05/14221 Specimen Information: Blood WBC 4.10 3.80 - 11.00 K/uL RBC 3.38 (L) 3.70 - 5.10 M/uL HGB 10.1 (L) 11.3 - 15.5 g/dL HCT 30.5 (L) 34.0 - 46.0 % MCV 90.4 80.0 - 100.0 fl MCH 29.9 27.0 - 34.0 pg MCHC 33.1 32.0 - 35.5 g/dL RDW SD 51.6 37 - 53 fl PLT 62 (L) 150 - 400 K/uL MPV 8.5 fl DIFF TYPE AUTOMATED NEUTROPHILS 77.06 % LYMPHOCYTES 8.17 % MONOCYTES 13.35 % EOSINOPHILS 0.16 % BASOPHILS 1.26 % NEUTROPHILS ABS 3.16 1.90 - 7.40 K/uL LYMPHOCYTES ABS 0.34 (L) 1.00 - 3.90 K/uL MONOCYTES ABS 0.55 0.00 - 0.80 K/uL EOSINOPHILS ABS 0.01 0.00 - 0.50 K/uL BASOPHILS ABS 0.05 0.00 - 0.10 K/uL MRSA by PCR [[id number]] Collected: 10/04/14 2352 Order Status: Completed Updated: 10/05/14 0111 Specimen Information: Nasopharyngeal / Nares(Nose) SOURCE NARES(NOSE) MRSA PCR NEGATIVE NEGATIVE Radiology and EKG Evaluation Imaging Results XR Chest PA and Lateral (Final result) Result time: 10/05/14 07:10:27 Final result by Rad Results In Jerm[place] (10/05/14 07:10:27) Impression: FINDINGS/ IMPRESSION: Lungs are clear. No pleural effusion, no pneumothorax. Heart size is normal. Mediastinal contours are normal. No acute osseous abnormality. Narrative: SHAILA SON 1970 44 years Female XR CHEST 2 VIEW FRONTAL AND LATERAL 10/05/2014 12:33 AM INDICATION: Fever COMPARISON: February 09, 2014 TECHNIQUE: Two view chest, PA and lateral views CT Head and C-Spine Non-Contrast (Final result) Result time: 10/05/14 01:19:29 Preliminary result by Rad Results In Jerm[place] (10/05/14 01:19:29) Impression: Head CT: No acute intracranial CT abnormality. No evidence of hemorrhage or mass effect. Th ere is generalized volume loss. Cervical Spine CT: There is chronic appearing fracture of the left lateral C2 vertebral bod y. There is no evidence of acute fracture or dislocation. RADIA Read by David Holley MD on Oct 05 2014 1:19AM Final result by Rad Results In [place]erm[place] (10/05/14 01:19:10) Impression: Head CT: No acute intracranial CT abnormality. No evidence of hemorrhage or mass effect. Th ere is generalized volume loss. Cervical Spine CT: There is chronic appearing fracture of the left lateral C2 vertebral bod y. There is no evidence of acute fracture or dislocation. RADIA Electronically signed by David Holley MD on Oct 05 2014 1:19AM Referring Provider Keri ne: [phone] ID: [id number] Narrative: EXAM: CT HEAD AND CERVICAL SPINE EXAM DATE: 10/05/2014 12:30 AM. CLINICAL HISTORY: Head injury. COMPARISON: 04/19/2013. TECHNIQUE: Noncontrast axial sections through the head and cervical spine. Reformats: Coron al and sagittal of the cervical spine. FINDINGS CT HEAD: Parenchyma: No intraparenchymal hemorrhage. No evidence of mass, midline shift or CT findin gs of infarction. Philippe-white differentiation is distinct. Extraaxial Spaces: There is volume loss out of proportion to patient age. No subdural or e pidural collections identified. Ventricles: Normal in size and position. Sinuses: Imaged paranasal sinuses, orbits, and mastoids show no significant abnormality. Bones: No evidence of fracture or calvarial defect. Other: None. FINDINGS CT CERVICAL SPINE: Alignment: No dislocation. Bones: There is chronic appearing fracture through the left aspect of the C2 vertebral body . No evidence of acute fracture. Interspace Levels/Facets: There is mild and lower cervical spine degenerative disease. Spinal Canal: Normal. Other: No apical pneumothorax. Diagnosis & Disposition ED Diagnoses Final diagnoses Alcohol withdrawal seizure, uncomplicated (HCC) Urinary tract infection with hematuria, site unspecified Hepatic encephalopathy (HCC) Anemia, unspecified anemia type Thrombocytopenia (HCC) Lymphocytopenia Delirium tremens (HCC) Alcohol abuse Disposition: ED Disposition Admit/Observation Bed request special needs: None Diagnosis?: etoh withdrawals, fever, urosepsis, hepatic encephalopathy Follow-up Information None Discharge Medications: Current Discharge Medication List 0 Leonarda Rich DO 10/06/14 1507 onversion Transacti on, Provider Unknown - 10/04/2014 10:51 PM PDTFormatting of this note might be different fro m the original. ED Notes by Xu Villanueva RN at 10/04/14 8945 Author: Xu Villanueva RN Service: Emergency Department Author Type: Registered Nurse Filed: 10/04/142250 Date of Service: 10/04/142250 Status: Signed Software Quality Engineer: Xu Villanueva RN (Registered Nurse) Dr. Rich informed of the pt's fever. Xu Villanueva RN 10/04/142250 onver miriam Transaction, Provider Unknown - 10/04/2014 10:46 PM PDT ED Notes by Xu Villanueva RN at 10/04/142245 Author: Xu Villanueva RN Service: Emergency Department Author Type: Registered Nurse Filed: 10/04/142246 Date of Service: 10/04/142245 Status: Signed Software Quality Engineer: Xu Villanueva RN (Registered Nurse) Patient placed on cardiac monitoring. hvac service tech called, informed of patient. Xu Villanueva RN 10/04/142246 onver miriam Transaction, Provider Unknown - 10/04/2014 10:29 PM PDT ED Notes by Xu Villanueva RN at 10/04/142228 Author: Xu Villanueva RN Service: Emergency Department Author Type: Registered Nurse Filed: 10/04/142246 Date of Service: 10/04/142228 Status: Signed Software Quality Engineer: Xu Villanueva RN (Registered Nurse) Patient identifiers checked x2. Patient gowned, bed rails up x1, call light within reach. P tatiana of care discussed, care board updated. Xu Villanueva RN 10/04/142246 onver miriam Transaction, Provider Unknown - 10/04/2014 10:27 PM PDT ED Notes by Jeremi Cai RN at 10/04/142226 Author: Jeremi Cai RN Service: (none) Author Type: Registered Nurse Filed: 10/04/142226 Date of Service: 10/04/142226 Status: Signed Software Quality Engineer: Jeremi Cai RN (Registered Nurse) Bed: 12 Expected date: Expected time: Means of arrival: Comments: [facility] transfer onver miriam Transaction, Provider Unknown - 10/04/2014 10:04 PM PDT ED Notes by Jodie Cowan RN at 10/04/142203 Author: Jodie Cowan RN Service: (none) Author Type: Registered Nurse Filed: 10/04/142204 Date of Service: 10/04/142203 Status: Signed Software Quality Engineer: Jodie Cowan RN (Registered Nurse) Pt stable en route to facility per [facility]. VS: 145/77, 97, 18, 96% on RA Jodie Cowan RN 10/04/142204 onver miriam Transaction, Provider Unknown - 10/04/2014 9:12 PM PDT ED Notes by Prince Anand RN at 10/04/142111 Author: Prince Anand RN Service: (none) Author Type: Registered Nurse Filed: 10/04/142118 Date of Service: 10/04/142111 Status: Signed Software Quality Engineer: Prince Anand RN (Registered Nurse) Patient was reported by EMS found down at the [facility] in [place]. RN at [facility] the patient has history of seizures, completely unable to answer questions upon arrival, but since that time has "come around" and is now responding and answering questions. She rep orts the seizure was unwitnessed today. History of HTN, anemia, and cirrhosis. Patient had a nother seizure at 1730 and was given 2mg of ativan. At 1810 the patient was given 1mg of ati van, IV thiamin, 8mg of Zofran, and 1L of fluids. Current vitals are 148/96, temp- 100.6, HR - 117, SPO2-95%. Patient has a 22g IV in the right thumb. Prince Anand RN 10/04/142118 docume nted in this encounter Miscellaneous Notes Plan of Care - Conversion Transaction, Provider Unknown - 10/07/2014 7:13 AM PDT Plan of Care by Jelly Moreno RN at 10/07/14712 Author: Jelly Moreno RN Service: (none) Author Type: Registered Nurse Filed: 10/07/14712 Date of Service: 10/07/14712 Status: Signed Software Quality Engineer: Jelly Moreno RN (Registered Nurse) Call light use reinforced, fall precautions implemented, and pain management discussed with patient. IS use and turn, cough, and deep breathing encouraged. SPOT implemented. 10/07/2014 7:13 AM docume nted in this encounter Plan of Treatment Not on filedocumented as of this encounter Procedures + +--------+ + + + | Procedure Name | Priori | Date/Time | Associated Diagnosis | Comments | | | ty | | | | + +--------+ + + + | MAGNESIUM | Routin | 10/07/2014 | | Results for this | | | e | 6:27 AM | | procedure are in the | | | | PDT | | results section. | + +--------+ + + + | BASIC METABOLIC | Routin | 10/07/2014 | | Results for this | | PANEL | e | 6:27 AM | | procedure are in the | | | | PDT | | results section. | + +--------+ + + + | CBC NO DIFFERENTIAL | Routin | 10/06/2014 | | Results for this | | | e | 6:14 AM | | procedure are in the | | | | PDT | | results section. | + +--------+ + + + | AMMONIA | Routin | 10/06/2014 | | Results for this | | | e | 6:14 AM | | procedure are in the | | | | PDT | | results section. | + +--------+ + + + | COMPREHENSIVE | Routin | 10/06/2014 | | Results for this | | METABOLIC PANEL | e | 6:14 AM | | procedure are in the | | | | PDT | | results section. | + +--------+ + + + | HISTORICAL | Timed | 10/05/2014 | | Results for this | | MICROBIOLOGY RESULT | | 2:11 PM | | procedure are in the | | | | PDT | | results section. | + +--------+ + + + | US ABDOMEN LIMITED | Routin | 10/05/2014 | | Results for this | | | e | 6:12 AM | | procedure are in the | | | | PDT | | results section. | + +--------+ + + + | URINALYSIS WITH | Routin | 10/05/2014 | | Results for this | | MICROSCOPIC IF | e | 5:13 AM | | procedure are in the | | INDICATED | | PDT | | results section. | + +--------+ + + + | URINALYSIS, | Routin | 10/05/2014 | | Results for this | | MICROSCOPIC ONLY | e | 5:13 AM | | procedure are in the | | | | PDT | | results section. | + +--------+ + + + | CULTURE, URINE | Timed | 10/05/2014 | | Results for this | | | | 5:13 AM | | procedure are in the | | | | PDT | | results section. | + +--------+ + + + | EXTERNAL LAB: CBC | Routin | 10/05/2014 | | Results for this | | | e | 1:50 AM | | procedure are in the | | | | PDT | | results section. | + +--------+ + + + | CULTURE, BLOOD, 2ND | STAT | 10/05/2014 | | Results for this | | SPECIMEN (NON-ORD) | | 1:50 AM | | procedure are in the | | | | PDT | | results section. | + +--------+ + + + | CULTURE, BLOOD | STAT | 10/05/2014 | | Results for this | | | | 1:50 AM | | procedure are in the | | | | PDT | | results section. | + +--------+ + + + | PTT | Routin | 10/05/2014 | | Results for this | | | e | 1:50 AM | | procedure are in the | | | | PDT | | results section. | + +--------+ + + + | PROTIME INR | Routin | 10/05/2014 | | Results for this | | | e | 1:50 AM | | procedure are in the | | | | PDT | | results section. | + +--------+ + + + | , SERUM, | Routin | 10/05/2014 | | Results for this | | QUAL | e | 1:50 AM | | procedure are in the | | | | PDT | | results section. | + +--------+ + + + | PHOSPHORUS | Routin | 10/05/2014 | | Results for this | | | e | 1:50 AM | | procedure are in the | | | | PDT | | results section. | + +--------+ + + + | MAGNESIUM | Routin | 10/05/2014 | | Results for this | | | e | 1:50 AM | | procedure are in the | | | | PDT | | results section. | + +--------+ + + + | BASIC METABOLIC | Routin | 10/05/2014 | | Results for this | | PANEL | e | 1:50 AM | | procedure are in the | | | | PDT | | results section. | + +--------+ + + + | XR CHEST 2 VIEWS | Routin | 10/05/2014 | | Results for this | | | e | 12:33 AM | | procedure are in the | | | | PDT | | results section. | + +--------+ + + + | CT HEAD CERVICAL | Routin | 10/05/2014 | | Results for this | | SPINE WO CONTRAST | e | 12:29 AM | | procedure are in the | | | | PDT | | results section. | + +--------+ + + + | MRSA NAAT | Timed | 10/04/2014 | | Results for this | | | | 11:52 PM | | procedure are in the | | | | PDT | | results section. | + +--------+ + + + documented in this encounter Results Magnesium (10/07/2014 6:27 AM PDT) + + + + + + | Component | Value | Ref Range | Performed | Pathologist | | | | | At | Signature | + + + + + + | Magnesium | 1.4 (L)Comment: Testing | 1.7 - 2.4 mg/dL | EXTERNAL | | | | performed at [facility] | | LAB | | | | [address];[place] | | | | | | [address] | | | | + + + [...] + +---------+ + + Basic Metabolic Panel (10/07/2014 6:27 AM PDT) + + + + + + | Component | Value | Ref Range | Performed | Pathologist | | | | | At | Signature | + + + + + + | Na | 138Comment: Testing | 135 - 143 | EXTERNAL | | | | performed at [facility];[address] | mmol/L | LAB | | | | [address];[place] | | | | | | [address] | | | | + + + + + + | K | 4.1Comment: Testing | 3.5 - 4.9 | EXTERNAL | | | | performed at [facility];[address] | mmol/L | LAB | | | | [address];[place] | | | | | | [address] | | | | + + + + + + | Cl | 108Comment: Testing | 99 - 109 mmol/L | EXTERNAL | | | | performed at [facility];[address] | | LAB | | | | [address];[place] | | | | | | [address] | | | | + + + + + + | CO2 | 20 (L)Comment: Testing | 23 - 32 mmol/L | EXTERNAL | | | | performed at [facility];[address] | | LAB | | | | [address];[place] | | | | | | [address] | | | | + + + + + + | Anion Gap | 13Comment: Testing | 5 - 20 mmol/L | EXTERNAL | | | | performed at [facility];[address] | | LAB | | | | [address];[place] | | | | | | [address] | | | | + + + + + + | Glucose, | 91Comment: Testing | 65 - 99 mg/dL | EXTERNAL | | | Fasting | performed at [facility];[address] | | LAB | | | | [address];[place] | | | | | | [address] | | | | + + + + + + | BUN | 6 (L)Comment: Testing | 8 - 25 mg/dL | EXTERNAL | | | | performed at [facility];[address] | | LAB | | | | [address];[place] | | | | | | [address] | | | | + + + + + + | Creatinine | 0.96Comment: Testing | 0.50 - 1.00 | EXTERNAL | | | | performed at [facility];[address] | mg/dL | LAB | | | | [address];[place] | | | | | | [address] | | | | + + + + + + | BUN/Creatin | 7Comment: Testing | | EXTERNAL | | | ine Ratio | performed at [facility];[address] | | LAB | | | | [address];[place] | | | | | | [address] | | | | + + + + + + | Calcium | 8.3 (L)Comment: Testing | 8.5 - 10.5 | EXTERNAL | | | | performed at [facility];[address] | mg/dL | LAB | | | | [address];[place] | | | | | | [address] | | | | + + + [...] | | | | | | at [facility];[address] | | | | | | [address];[place] [address] | | | | + + + + + + + + | Specimen | + + | Blood specimen | | (specimen) | + + + +---------+ + + | Performing | Address | City/State/Zipcode | Phone Number | | Organization | | | | + +---------+ + + | EXTERNAL LAB | | | | + +---------+ + + CBC no Differential (10/06/2014 6:14 AM PDT) + + + + + + | Component | Value | Ref Range | Performed | Pathologist | | | | | At | Signature | + + + + + + | WBC | 3.35 (L)Comment: Testing | 3.80 - 11.00 | EXTERNAL | | | | performed at [facility], [address] | K/uL | LAB | | | | [address], | | | | | | [place] [address] | | | | + + + + + + | Non- | 3.32 (L)Comment: Testing | 3.70 - 5.10 | EXTERNAL | | | Red Blood | performed at [facility], [address] | M/uL | LAB | | | Cells | [address], | | | | | Counted | [place] [address] | | | | + + + + + + | Hemoglobin | 9.7 (L)Comment: Testing | 11.3 - 15.5 | EXTERNAL | | | | performed at [facility], [address] | g/dL | LAB | | | | [address], | | | | | | [place] [address] | | | | + + + + + + | Hematocrit, | 30.4 (L)Comment: Testing | 34.0 - 46.0 % | EXTERNAL | | | POC | performed at [facility], [address] | | LAB | | | | [address], | | | | | | [place] [address] | | | | + + + + + + | MCV | 91.5Comment: Testing | 80.0 - 100.0 fl | EXTERNAL | | | | performed at [facility], [address] | | LAB | | | | [address], | | | | | | [place], [place] [address] | | | | + + + + + + | MCH | 29.4Comment: Testing | 27.0 - 34.0 pg | EXTERNAL | | | | performed at [facility], [address] | | LAB | | | [address], | | | | | | [place] [address] | | | | + + + + + + | MCHC | 32.1Comment: Testing | 32.0 - 35.5 | EXTERNAL | | | | performed at [facility], [address] | g/dL | LAB | | | | [address], | | | | | | [place] [address] | | | | + + + + + + | RDW-CV | 50.8Comment: Testing | 37 - 53 fl | EXTERNAL | | | | performed at [facility], [address] | | LAB | | | | [address], | | | | | | [place] [address] | | | | + + + + + + | Platelet | 66 (L)Comment: Testing | 150 - 400 K/uL | EXTERNAL | | | Count | performed at [facility], [address] | | LAB | | | Plasma | [address], | | | | | | [place] [address] | | | | + + + + + + | MPV | 9.0Comment: Testing | fl | EXTERNAL | | | | performed at [facility], [address] | | LAB | | | | [address], | | | | | | [place] [address] | | | | + + + + + + + + | Specimen | + + | | + + + +---------+ + + | Performing | Address | City/State/Zipcode | Phone Number | | Organization | | | | + +---------+ + + | EXTERNAL LAB | | | | + +---------+ + + Ammonia (10/06/2014 6:14 AM PDT) + + + + + + | Component | Value | Ref Range | Performed | Pathologist | | | | | At | Signature | + + + + + + | Ammonia | 25Comment: Testing | umol/L | EXTERNAL | | | | performed at [facility];[address] | | LAB | | | | [address];[place], [place] | | | | | | [address] | | | | + + + + + + + + | Specimen | + + | | + + + +---------+ + + | Performing | Address | City/State/Zipcode | Phone Number | | Organization | | | | + +---------+ + + | EXTERNAL LAB | | | | + +---------+ + + Comprehensive Metabolic Panel (10/06/2014 6:14 AM PDT) + + + + + + | Component | Value | Ref Range | Performed | Pathologist | | | | | At | Signature | + + + + + + | Na | 131 (L)Comment: Testing | 135 - 143 | EXTERNAL | | | | performed at [facility], [address] | mmol/L | LAB | | | | [address], | | | | | | [place] [address] | | | | + + + + + + | K | 3.5Comment: Testing | 3.5 - 4.9 | EXTERNAL | | | | performed at [facility], [address] | mmol/L | LAB | | | | [address], | | | | | | [place] [address] | | | | + + + + + + | Cl | 104Comment: Testing | 99 - 109 mmol/L | EXTERNAL | | | | performed at [facility], [address] | | LAB | | | | [address], | | | | | | [place] [address] | | | | + + + + + + | CO2 | 23Comment: Testing | 23 - 32 mmol/L | EXTERNAL | | | | performed at [facility], [address] | | LAB | | | | [address], | | | | | | [place] [address] | | | | + + + + + + | Anion Gap | 8Comment: Testing | 5 - 20 mmol/L | EXTERNAL | | | | performed at [facility], [address] | | LAB | | | [address], | | | | | | [place] [address] | | | | + + + + + + | Glucose, | 100 (H)Comment: Testing | 65 - 99 mg/dL | EXTERNAL | | | Fasting | performed at [facility], [address] | | LAB | | | | [address], | | | | | | [place] [address] | | | | + + + + + + | BUN | 6 (L)Comment: Testing | 8 - 25 mg/dL | EXTERNAL | | | | performed at [facility], [address] | | LAB | | | | [address], | | | | | | [place] [address] | | | | + + + + + + | Creatinine | 0.57Comment: Testing | 0.50 - 1.00 | EXTERNAL | | | | performed at [facility], [address] | mg/dL | LAB | | | | [address], | | | | | | [place] [address] | | | | + + + + + + | BUN/Creatin | 11Comment: Testing | | EXTERNAL | | | ine Ratio | performed at [facility], [address] | | LAB | | | | [address], | | | | | | [place] [address] | | | | + + + + + + | Calcium | 7.9 (L)Comment: Testing | 8.5 - 10.5 | EXTERNAL | | | | performed at [facility], [address] | mg/dL | LAB | | | | [address], | | | | | | [place] [address] | | | | + + + + + + | Protein, | 6.4Comment: Testing | 6.3 - 8.2 g/dL | EXTERNAL | | | Total | performed at [facility], [address] | | LAB | | | | [address], | | | | | | [place] [address] | | | | + + + + + + | Albumin | 2.8 (L)Comment: Testing | 3.6 - 5.0 g/dL | EXTERNAL | | | | performed at [facility], [address] | | LAB | | | | [address], | | | | | | [place] [address] | | | | + + + + + + | Globulin | 3.6Comment: Testing | 1.3 - 4.9 g/dL | EXTERNAL | | | | performed at [facility], [address] | | LAB | | | | [address], | | | | | | [place] [address] | | | | + + + + + + | A/G Ratio | 0.8 (L)Comment: Testing | 1.0 - 2.4 | EXTERNAL | | | | performed at [facility], [address] | | LAB | | | | [address], | | | | | | [place] [address] | | | | + + + + + + | Bilirubin | 1.2Comment: Testing | 0.1 - 1.5 mg/dL | EXTERNAL | | | Total | performed at [facility], [address] | | LAB | | | | [address], | | | | | | [place] [address] | | | | + + + + + + | ALP, | 79Comment: Testing | 35 - 115 U/L | EXTERNAL | | | External | performed at [facility], [address] | | LAB | | | | [address], | | | | | | [place] [address] | | | | + + + + + + | AST | 47 (H)Comment: Testing | 10 - 45 U/L | EXTERNAL | | | | performed at [facility], [address] | | LAB | | | | [address], | | | | | | [place] [address] | | | | + + + + + + | ALT | 18Comment: Testing | 10 - 65 U/L | EXTERNAL | | | | performed at [facility], [address] | | LAB | | | | [address], | | | | | | [place] [address] | | | | + + + [...] | | | | | | at [facility], [address] | | | | | | [address], | | | | | | [place] [address] | | | | + + + [...] + +---------+ + + HISTORICAL MICROBIOLOGY RESULT (10/05/2014 2:11 PM PDT) + + | Specimen | + + | Stool specimen | | (specimen) | + + + + + | Narrative | Performed At | + + + | Toxigenic C Difficile NEGATIVE Testing | EXTERNAL LAB | | performed at [facility];[address] [facility];[place] [address] 027 NAP1 BI | | | 027 NAP1 BI PRESUMPTIVE NEGATIVE | | | Detection of 027 NAP1 BI strains of C. difficile is presumptive and | | | for epidemiological purposes and not intended to guide or monitor | | | treatment for C. difficile infections. Testing performed at [facility];[address] | | | [facility];[place] [address] | | + + + + +---------+ + + | Performing | Address | City/State/Zipcode | Phone Number | | Organization | | | | + +---------+ + + | EXTERNAL LAB | | | | + +---------+ + + US Abdomen Limited (10/05/2014 6:12 AM PDT) + + | Specimen | + + | | + + + + + | Impressions | Performed At | + + + | 1. No ascites. Electronically signed by Castillo | | | MD Joe on Oct 05 2014 7:26AM Referring Provider Line: | | | [phone] ID: [id number] | | + + + + + + | Narrative | Performed At | + + + | EXAM: ABDOMEN ULTRASOUND LIMITED, [facility] EXAM DATE: 10/05/2014 | | | 06:13 AM. CLINICAL HISTORY: Liver cirrhosis. Assessment for | | | ascites. COMPARISON: 03/25/2013. TECHNIQUE: Real-time scanning | | | was performed with static images obtained. FINDINGS: Ultrasound | | | was performed in all 4 quadrants of abdomen. No ascites is visualized. | | | Bowel is seen. | | + + + + + | Procedure Note | + + | Edgardo Dean Conversion - 11/22/2018 2:28 AM PDT EXAM:ABDOMEN ULTRASOUND LIMITED, [facility] | | EXAM DATE: 10/05/2014 06:13 AM. CLINICAL HISTORY: Liver cirrhosis. Assessment for | | ascites. COMPARISON: 03/25/2013. TECHNIQUE: Real-time scanning was performed with static | | images obtained. FINDINGS:Ultrasound was performed in all 4 quadrants of abdomen. No | | ascites is visualized. Bowel is seen. IMPRESSION: 1. No ascites. Electronically | | signed by Castillo Diaz MD on Oct 05 2014 7:26AM Referring Provider Line: | | [phone] ID: [id number] | |COMPARISON: 03/25/2013. | | | |TECHNIQUE: Real-time scanning was performed with static images obtained. | | | |FINDINGS: | |Ultrasound was performed in all 4 quadrants of abdomen. No ascites is visualized. Bowel is seen. | | | |IMPRESSION: | | | |1. No ascites. | | | | | | Electronically signed by Castillo Diaz MD on Oct 05 2014 7:26AM Referring Provider Line: [phone] ID: [id number] | + + Culture, Urine (10/05/2014 5:13 AM PDT) + + | Specimen | + + | Urine specimen | | (specimen) | + + + + + | Narrative | Performed At | + + + | Specimen Description URINE,CLEAN CATCH CULTURE | EXTERNAL LAB | | <10,000 CFU/ML | | | STREPTOCOCCUS | | | AGALACTIAEAbnormal | | | STREPTOCOCCUS AGALACTIAE (GROUP B), IS PREDICTABLY SUSCEPTIBLE TO | | | PENICILLIN AND CEPHALOSPORINS. | | | Testing performed at [facility], [address] [facility], | | | [place] [address] | | + + + + +---------+ + + | Performing | Address | City/State/Zipcode | Phone Number | | Organization | | | | + +---------+ + + | EXTERNAL LAB | | | | + +---------+ + + Urinalysis, Microscopic Only (10/05/2014 5:13 AM PDT) + + + + + + | Component | Value | Ref Range | Performed | Pathologist | | | | | At | Signature | + + + + + + | WBC, UA | >100Comment: Testing | 0 - 5 /hpf | EXTERNAL | | | | performed at [facility], [address] | | LAB | | | | [address], | | | | | | [place] [address] | | | | + + + + + + | RBC, UA | 16-25Comment: Testing | 0 - 5 /hpf | EXTERNAL | | | | performed at [facility], [address] | | LAB | | | | [address], | | | | | | [place] [address] | | | | + + + + + + | Epithelial | 1-5Comment: Testing | /lpf | EXTERNAL | | | Cells | performed at [facility], [address] | | LAB | | | | [address], | | | | | | [place] [address] | | | | + + + + + + | Bacteria, | 4+ (A)Comment: Testing | | EXTERNAL | | | UA | performed at [facility], [address] | | LAB | | | | [address], | | | | | | [place] [address] | | | | + + + + + + | HYALINE | NONE SEENComment: | | EXTERNAL | | | CASTS UA | Testing performed at | | LAB | | | | [facility], [address] | | | | | | [place] | | | | | | [address] | | | | + + + + + + + + | Specimen | + + | | + + + +---------+ + + | Performing | Address | City/State/Zipcode | Phone Number | | Organization | | | | + +---------+ + + | EXTERNAL LAB | | | | + +---------+ + + Urinalysis with Microscopic if Indicated (10/05/2014 5:13 AM PDT) + + + + + + | Component | Value | Ref Range | Performed | Pathologist | | | | | At | Signature | + + + + + + | Color | YELLOWComment: Testing | | EXTERNAL | | | | performed at [facility], [address] | | LAB | | | | [address], | | | | | | [place] [address] | | | | + + + + + + | Clarity, | CLOUDYComment: Testing | | EXTERNAL | | | Urine | performed at [facility], [address] | | LAB | | | | [address], | | | | | | [place] [address] | | | | + + + + + + | Specific | 1.016Comment: Testing | 1.002 - 1.030 | EXTERNAL | | | [place], | performed at [facility], [address] | | LAB | | | Urine | [address], | | | | | | [place] [address] | | | | + + + + + + | Leukocyte | MODERATE (A)Comment: | | EXTERNAL | | | Esterase, | Testing performed at | | LAB | | | Urine | [facility], [address] | | | | | | [place] | | | | | | [address] | | | | + + + + + + | Nitrite, | NEGATIVEComment: Testing | | EXTERNAL | | | Urine | performed at [facility], [address] | | LAB | | | | [address], | | | | | | [place] [address] | | | | + + + + + + | Urobilinoge | 1.0Comment: Testing | mg/dL | EXTERNAL | | | n, Urine | performed at [facility], [address] | | LAB | | | | [address], | | | | | | [place] [address] | | | | + + + + + + | Protein, | 300 (A)Comment: Testing | mg/dL | EXTERNAL | | | Urine | performed at [facility], [address] | | LAB | | | | [address], | | | | | | [place] [address] | | | | + + + + + + | pH, Urine | 7.5Comment: Testing | 5.0 - 8.0 | EXTERNAL | | | | performed at [facility], [address] | | LAB | | | | [place], | | | | | | [place] [address] | | | | + + + + + + | Blood, | LARGE (A)Comment: | | EXTERNAL | | | Urine | Testing performed at | | LAB | | | | [facility], [address] [facility] | | | | | | [place] | | | | | | [id number] | | | | + + + + + + | Ketones | NEGATIVEComment: Testing | mg/dL | EXTERNAL | | | | performed at [facility], [address] | | LAB | | | | [address], | | | | | | [place] [address] | | | | + + + + + + | Bilirubin, | NEGATIVEComment: Testing | | EXTERNAL | | | Urine | performed at [facility], [address] | | LAB | | | | [address] [place], | | | | | | [place] [address] | | | | + + + + + + | Glucose, | NEGATIVEComment: Testing | mg/dL | EXTERNAL | | | Urine | performed at [facility], [address] | | LAB | | | | [address], | | | | | | [place] [id number] | | | | + + + [...] +---------+ + + Culture, Blood, 2nd Specimen (10/05/2014 1:50 AM PDT) + + | Specimen | + + | Blood specimen | | (specimen) | + + + + + | Narrative | Performed At | + + + | Specimen Description BLOOD SPECIAL | EXTERNAL LAB | | REQUESTS RH | | | Testing performed at [facility];[address] | | | [address];[place] [address] CULTURE | | | NO GROWTH | | | Testing performed at [facility], [address] [facility] | | | [address] | | + + + + +---------+ + + | Performing | Address | City/State/Zipcode | Phone Number | | Organization | | | | + +---------+ + + | EXTERNAL LAB | | | | + +---------+ + + Culture, Blood (10/05/2014 1:50 AM PDT) + + | Specimen | + + | Blood specimen | | (specimen) | + + + + + | Narrative | Performed At | + + + | Specimen Description BLOOD SPECIAL | EXTERNAL LAB | | REQUESTS LH | | | Testing performed at [facility];[address];[place] [address] CULTURE | | | NO GROWTH | | | Testing performed at [facility], [address], [place], [place] | | | [address] | | + + + + +---------+ + + | Performing | Address | City/State/Zipcode | Phone Number | | Organization | | | | + +---------+ + + | EXTERNAL LAB | | | | + +---------+ + + PTT (10/05/2014 1:50 AM PDT) + + + + + + | Component | Value | Ref Range | Performed | Pathologist | | | | | At | Signature | + + + + + + | aPTT, | 29Comment: Testing | 23 - 32 seconds | EXTERNAL | | | Patient | performed at [facility];[address] | | LAB | | | [address];[place], [place] | | | | | | [address] | | | | + + + + + + + + | Specimen | + + | Blood specimen | | (specimen) | + + + +---------+ + + | Performing | Address | City/State/Zipcode | Phone Number | | Organization | | | | + +---------+ + + | EXTERNAL LAB | | | | + +---------+ + + Protime INR (10/05/2014 1:50 AM PDT) + + + + + + | Component | Value | Ref Range | Performed | Pathologist | | | | | At | Signature | + + + + + + | INR | 1.2Comment: REFERENCE | | EXTERNAL | | | | RANGE:0.9 - 1.2 | | LAB | | | | NON-ANTICOAGULATED2.0 | | | | | | - 3.0 ALL OTHER | | | | | | THERAPEUTIC | | | | | | INDICATIONS2.5 - 3.5 | | | | | | MECHANICAL HEART VALVES, | | | | | | RECURRENT OR SYSTEMIC | | | | | | EMBOLISMTesting | | | | | | performed at [facility] | | | | | | [address];[place], [place] | | | | | | [address] | | | | + + + [...] + +---------+ + + External Lab: CBC (10/05/2014 1:50 AM PDT) + + + + + + | Component | Value | Ref Range | Performed | Pathologist | | | | | At | Signature | + + + + + + | WBC | 4.10Comment: Testing | 3.80 - 11.00 | EXTERNAL | | | | performed at [facility];[address] | K/uL | LAB | | | | [address];[place] | | | | | | [address] | | | | + + + + + + | Non- | 3.38 (L)Comment: Testing | 3.70 - 5.10 | EXTERNAL | | | Red Blood | performed at [facility];[address] | M/uL | LAB | | | Cells | [address];[place] | | | | | Counted | [address] | | | | + + + + + + | Hemoglobin | 10.1 (L)Comment: Testing | 11.3 - 15.5 | EXTERNAL | | | | performed at [facility];[address] | g/dL | LAB | | | | [address];[place] | | | | | | [address] | | | | + + + + + + | Hematocrit, | 30.5 (L)Comment: Testing | 34.0 - 46.0 % | EXTERNAL | | | POC | performed at [facility];[address] | | LAB | | | | [address];[place] | | | | | | [address] | | | | + + + + + + | MCV | 90.4Comment: Testing | 80.0 - 100.0 fl | EXTERNAL | | | | performed at [facility];[address] | | LAB | | | | [address];[place] | | | | | | [address] | | | | + + + + + + | MCH | 29.9Comment: Testing | 27.0 - 34.0 pg | EXTERNAL | | | | performed at [facility];[address] | | LAB | | | | [address];[place] | | | | | | [address] | | | | + + + + + + | MCHC | 33.1Comment: Testing | 32.0 - 35.5 | EXTERNAL | | | | performed at [facility];[address] | g/dL | LAB | | | | [address];[place] | | | | | | [address] | | | | + + + + + + | RDW-CV | 51.6Comment: Testing | 37 - 53 fl | EXTERNAL | | | | performed at [facility];[address] | | LAB | | | | [address];[place] | | | | | | [address] | | | | + + + + + + | Platelet | 62 (L)Comment: Testing | 150 - 400 K/uL | EXTERNAL | | | Count | performed at [facility];[address] | | LAB | | | Plasma | [address];[place] | | | | | | [address] | | | | + + + + + + | MPV | 8.5Comment: Testing | fl | EXTERNAL | | | | performed at [facility];[address] | | LAB | | | | [address];[place] | | | | | | [address] | | | | + + + + + + | Differentia | AUTOMATEDComment: | | EXTERNAL | | | l Type | Testing performed at | | LAB | | | | [facility];[address];[place] [address] | | | | + + + + + + | % Segmented | 77.06Comment: Testing | % | EXTERNAL | | | | performed at [facility];[address] | | LAB | | | Neutrophils | [address];[place] | | | | | | [address] | | | | + + + + + + | % | 8.17Comment: Testing | % | EXTERNAL | | | Lymphocytes | performed at [facility];[address] | | LAB | | | | [address];[place] | | | | | | [address] | | | | + + + + + + | % Monocytes | 13.35Comment: Testing | % | EXTERNAL | | | | performed at [facility];[address] | | LAB | | | | [address];[place] | | | | | | [address] | | | | + + + + + + | % | 0.16Comment: Testing | % | EXTERNAL | | | Eosinophils | performed at [facility];[address] | | LAB | | | | [address];[place] | | | | | | [address] | | | | + + + + + + | % Basophils | 1.26Comment: Testing | % | EXTERNAL | | | | performed at [facility];[address] | | LAB | | | | [address];[place] | | | | | | [address] | | | | + + + + + + | Absolute | 3.16Comment: Testing | 1.90 - 7.40 | EXTERNAL | | | Segmented | performed at [facility];[address] | K/uL | LAB | | | Neutrophils | [address];[place] | | | | | | [address] | | | | + + + + + + | Absolute | 0.34 (L)Comment: Testing | 1.00 - 3.90 | EXTERNAL | | | Lymphocytes | performed at [facility];[address] | K/uL | LAB | | | | [address];[place] | | | | | | [address] | | | | + + + + + + | Absolute | 0.55Comment: Testing | 0.00 - 0.80 | EXTERNAL | | | Monocytes | performed at [facility];[address] | K/uL | LAB | | | | [address];[place] | | | | | | [address] | | | | + + + + + + | Absolute | 0.01Comment: Testing | 0.00 - 0.50 | EXTERNAL | | | Eosinophils | performed at [facility];[address] | K/uL | LAB | | | | [address];[place] | | | | | | [address] | | | | + + + + + + | Absolute | 0.05Comment: Testing | 0.00 - 0.10 | EXTERNAL | | | Basophils | performed at [facility];[address] | K/uL | LAB | | | | [address];[place] | | | | | | [address] | | | | + + + + + + + + | Specimen | + + | Blood specimen | | (specimen) | + + + +---------+ + + | Performing | Address | City/State/Zipcode | Phone Number | | Organization | | | | + +---------+ + + | EXTERNAL LAB | | | | + +---------+ + + , Serum, Qual (10/05/2014 1:50 AM PDT) + + + + + + | Component | Value | Ref Range | Performed | Pathologist | | | | | At | Signature | + + + + + + | HCG | NEGATIVEComment: Testing | | EXTERNAL | | | QUALITATIVE | performed at [facility] | | LAB | | | | [address];[place], [place] | | | | | | [address] | | | | + + + + + + + + | Specimen | + + | Blood specimen | | (specimen) | + + + +---------+ + + | Performing | Address | City/State/Zipcode | Phone Number | | Organization | | | | + +---------+ + + | EXTERNAL LAB | | | | + +---------+ + + Phosphorus (10/05/2014 1:50 AM PDT) + + + + + + | Component | Value | Ref Range | Performed | Pathologist | | | | | At | Signature | + + + + + + | PHOSPHORUS | 3.1Comment: Testing | 2.3 - 4.8 mg/dL | EXTERNAL | | | | performed at [facility] | | LAB | | | | [facility], [place] | | | | | | [address] | | | | + + + + + + + + | Specimen | + + | Blood specimen | | (specimen) | + + + +---------+ + + | Performing | Address | City/State/Zipcode | Phone Number | | Organization | | | | + +---------+ + + | EXTERNAL LAB | | | | + +---------+ + + Magnesium (10/05/2014 1:50 AM PDT) + + + + + + | Component | Value | Ref Range | Performed | Pathologist | | | | | At | Signature | + + + + + + | Magnesium | 1.3 (L)Comment: Testing | 1.7 - 2.4 mg/dL | EXTERNAL | | | | performed at [facility];[address] | | LAB | | | | [address];[place] | | | | | | [address] | | | | + + + [...] + +---------+ + + Basic Metabolic Panel (10/05/2014 1:50 AM PDT) + + + + + + | Component | Value | Ref Range | Performed | Pathologist | | | | | At | Signature | + + + + + + | Na | 140Comment: Testing | 135 - 143 | EXTERNAL | | | | performed at [facility];888 | mmol/L | LAB | | | | [address];[place] | | | | | | [address] | | | | + + + + + + | K | 3.4 (L)Comment: Testing | 3.5 - 4.9 | EXTERNAL | | | | performed at [facility];888 | mmol/L | LAB | | | | [address];[place] | | | | | | [address] | | | | + + + + + + | Cl | 105Comment: Testing | 99 - 109 mmol/L | EXTERNAL | | | | performed at [facility];[address] | | LAB | | | | [address];[place] | | | | | | [address] | | | | + + + + + + | CO2 | 24Comment: Testing | 23 - 32 mmol/L | EXTERNAL | | | | performed at [facility];[address] | | LAB | | | | [address];[place] | | | | | | [address] | | | | + + + + + + | Anion Gap | 14Comment: Testing | 5 - 20 mmol/L | EXTERNAL | | | | performed at [facility];[address] | | LAB | | | | [address];[place] | | | | | | [address] | | | | + + + + + + | Glucose, | 99Comment: Testing | 65 - 99 mg/dL | EXTERNAL | | | Fasting | performed at [facility];[address] | | LAB | | | | [address];[place] | | | | | | [address] | | | | + + + + + + | BUN | 8Comment: Testing | 8 - 25 mg/dL | EXTERNAL | | | | performed at [facility];[address] | | LAB | | | | [address];[place] | | | | | | [address] | | | | + + + + + + | Creatinine | 0.82Comment: Testing | 0.50 - 1.00 | EXTERNAL | | | | performed at [facility];888 | mg/dL | LAB | | | | [address];[place] | | | | | | [address] | | | | + + + + + + | BUN/Creatin | 9Comment: Testing | | EXTERNAL | | | ine Ratio | performed at [facility];[address] | | LAB | | | | [address];[place] | | | | | | [address] | | | | + + + + + + | Calcium | 8.2 (L)Comment: Testing | 8.5 - 10.5 | EXTERNAL | | | | performed at [facility];888 | mg/dL | LAB | | | | [address];[place] | | | | | | [address] | | | | + + + [...] | | | | | | at [facility];[address];[place] [address] | | | | + + + [...] +---------+ + + XR Chest 2 Vws (10/05/2014 12:33 AM PDT) + + | Specimen | + + | | + + + + + | Impressions | Performed At | + + + | FINDINGS/ IMPRESSION: Lungs are clear. No pleural effusion, | | | no pneumothorax. Heart size is normal. Mediastinal contours are | | | normal. No acute osseous abnormality. | | + + + + + + | Narrative | Performed At | + + + | SHAILA SON 1970 44 years Female XR CHEST 2 VIEW FRONTAL | | | AND LATERAL 10/05/2014 12:33 AM INDICATION: Fever COMPARISON: | | | February 09, 2014 TECHNIQUE: Two view chest, PA and lateral views | | | | | + + + + + | Procedure Note | + + | Jermaine, Rad Conversion - 11/22/2018 2:28 AM PDT SHAILA SON | | 1970 | | 44 years Female | | XR CHEST 2 VIEW FRONTAL AND LATERAL | | 10/05/2014 12:33 AM | | | | INDICATION: Fever | | | | COMPARISON: February 09, 2014 | | | | TECHNIQUE: Two view chest, PA and lateral views | | | | IMPRESSION: | | FINDINGS/ IMPRESSION: | | | | Lungs are clear. | | | | No pleural effusion, no pneumothorax. | | | | Heart size is normal. Mediastinal contours are normal. | | | | No acute osseous abnormality. | | | | | | | + + CT Head Cervical Spine wo Contrast (10/05/2014 12:29 AM PDT) + + | Specimen | + + | | + + + + + | Impressions | Performed At | + + + | Head CT: No acute intracranial CT abnormality. No evidence of | | | hemorrhage or mass effect. There is generalized volume loss. Cervical | | | Spine CT: There is chronic appearing fracture of the left lateral C2 | | | vertebral body. There is no evidence of acute fracture or dislocation. | | | DANIELA Electronically signed by David Holley MD on Sep 1:19AM Referring Provider Line: [phone] ID: [id number] | | + + + + + + | Narrative | Performed At | + + + | EXAM: CT HEAD AND CERVICAL SPINE EXAM DATE: 10/05/2014 12:30 AM. | | | CLINICAL HISTORY: Head injury. COMPARISON: 04/19/2013. | | | TECHNIQUE: Noncontrast axial sections through the head and cervical | | | spine. Reformats: Coronal and sagittal of the cervical spine. | | | FINDINGS CT HEAD: Parenchyma: No intraparenchymal hemorrhage. No | | | evidence of mass, midline shift or CT findings of infarction. | | | Philippe-white differentiation is distinct. Extraaxial Spaces: There | | | is volume loss out of proportion to patient age. No subdural or | | | epidural collections identified. Ventricles: Normal in size and | | | position. Sinuses: Imaged paranasal sinuses, orbits, and mastoids | | | show no significant abnormality. Bones: No evidence of fracture or | | | calvarial defect. Other: None. FINDINGS CT CERVICAL SPINE: | | | Alignment: No dislocation. Bones: There is chronic appearing | | | fracture through the left aspect of the C2 vertebral body. No evidence | | | of acute fracture. Interspace Levels/Facets: There is mild and | | | lower cervical spine degenerative disease. Spinal Canal: Normal. | | | Other: No apical pneumothorax. | | + + + + + | Procedure Note | + + | Jermaine, Rad Conversion - 11/22/2018 2:28 AM PDT EXAM:CT HEAD AND CERVICAL SPINEEXAM | | DATE: 10/05/2014 12:30 AM. CLINICAL HISTORY: Head injury. COMPARISON: 04/19/2013. | | TECHNIQUE: Noncontrast axial sections through the head and cervical spine. Reformats: | | Coronal and sagittal of the cervical spine. FINDINGS CT HEAD:Parenchyma: No | | intraparenchymal hemorrhage. No evidence of mass, midline shift or CT findings of | | infarction. Philippe-white differentiation is distinct. Extraaxial Spaces: There is volume | | loss out of proportion to patient age. No subdural or epidural collections identified. | | Ventricles: Normal in size and position. Sinuses: Imaged paranasal sinuses, orbits, and | | mastoids show no significant abnormality. Bones: No evidence of fracture or calvarial | | defect. Other: None. FINDINGS CT CERVICAL SPINE:Alignment: No dislocation. Bones: There | | is chronic appearing fracture through the left aspect of the C2 vertebral body. No | | evidence of acute fracture. Interspace Levels/Facets: There is mild and lower cervical | | spine degenerative disease. Spinal Canal: Normal. Other: No apical pneumothorax. | | IMPRESSION: Head CT: No acute intracranial CT abnormality. No evidence of hemorrhage or | | mass effect. There is generalized volume loss.Cervical Spine CT: There is chronic | | appearing fracture of the left lateral C2 vertebral body. There is no evidence of acute | | fracture or dislocation. [facility] Electronically signed by David Holley MD on Oct 05 | | 2014 1:19AM Referring Provider Line: [phone] ID: [id number] | | | |Bones: No evidence of fracture or calvarial defect. | | | |Other: None. | | | |FINDINGS CT CERVICAL SPINE: | |Alignment: No dislocation. | | | |Bones: There is chronic appearing fracture through the left aspect of the C2 vertebral body . No evidence of acute fracture. | | | |Interspace Levels/Facets: There is mild and lower cervical spine degenerative disease. | | | |Spinal Canal: Normal. | | | |Other: No apical pneumothorax. | | | |IMPRESSION: | | | |Head CT: No acute intracranial CT abnormality. No evidence of hemorrhage or mass effect. Th ere is generalized volume loss. | |Cervical Spine CT: There is chronic appearing fracture of the left lateral C2 vertebral bod y. There is no evidence of acute fracture or dislocation. | | | |[facility] | | | | Electronically signed by David Holley MD on Oct 05 2014 1:19AM Referring Provider Keri ne: [phone] ID: [id number] | + + MRSA NAAT (10/04/2014 11:52 PM PDT) + + | Specimen | + + | | + + + + + | Narrative | Performed At | + + + | SOURCE NARES(NOSE) MRSA | EXTERNAL LAB | | PCR NEGATIVE Testing | | | performed at [facility];[address] [place] [address];[place] [address] | | + + + + +---------+ + + | Performing | Address | City/State/Zipcode | Phone Number | | Organization | | | | + +---------+ + + | EXTERNAL LAB | | | | + +---------+ + + documented in this encounter Visit Diagnoses + + | Diagnosis | + + | Alcohol withdrawal seizure, uncomplicated (HCC) | + + | Urinary tract infection with hematuria, site unspecified | + + | Hepatic encephalopathy (HCC) Hepatic encephalopathy | + + | Anemia, unspecified anemia type | + + | Thrombocytopenia (HCC) Thrombocytopenia, unspecified | + + | Lymphocytopenia | + + | Delirium tremens (HCC) Alcohol withdrawal delirium | + + | Alcohol abuse Alcohol abuse, unspecified | + + | Seizure disorder, secondary (HCC) Unspecified epilepsy without mention of intractable | | epilepsy | + + documented in this encounter
--- OUTSIDE RECORDS SUMMARY | ~2020-01-23 | XMS | Encounter Summary ---
Demographics + + + | Address | [address] | | | [place] [address] | + + + | Home Phone | | + + + | Preferred Language | Unknown | + + + | Marital Status | Single | + + + | Holiness Affiliation | [phone] | + + + | Race | or | + + + | Ethnic Group | Not or | + + + Author + + + | Author | [facility] | | | and [place] | + + + | Organization | [facility] | | | and [place] | + + + | Address | Unknown | + + + | Phone | Unavailable | + + + Support + + + + + | Name | Relationship | Address | Phone | + + + + + | Joanne Pham | ECON | [address] | | | | | [place] | | | | | [id number] | | + + + + + | Viktor Son | EDDIE | Unknown | | + + + + + | Edd Gill | ECON | Unknown | | + + + + + | Conner Barber | ECON | Unknown | | + + + + + Care Team Providers + +------+ + | Care Senior Sales Compensation Analyst Name | Role | Phone | + +------+ + | Trixie Rose PA-C | PCP | | + +------+ + Encounter Details +--------+ + + + + | Date | Type | Department | Care Team | Description | +--------+ + + + + | 11/08/ | Imaging | [facility] | Provider, | | | 2017 | Exam | [facility] | MD [facility] [address] | | | | | IMAGING [address] [place] | | | | | [address] | [place] [address] | | | | | [place] [address] | | | | | | [phone] | | | +--------+ + + + [...] + + documented in this encounter Results XR Chest AP Portable (09/01/2015 8:00 AM PDT) + + | Specimen | + + | | + + + + + | Narrative | Performed At | + + + | External films for comparison only - no result from [facility]. | [facility] | + + + + +---------+ + + | Performing | Address | City/State/Zipcode | Phone Number | | Organization | | | | + +---------+ + + | [facility] | | | | + +---------+ + + documented in this encounter Visit Diagnoses Not on filedocumented in this encounter"
--- OUTSIDE RECORDS SUMMARY | ~2020-01-23 | XMS | Encounter Summary ---
Demographics + + + | Address | [address] | | | [place] [address] | + + + | Home Phone | | + + + | Preferred Language | Unknown | + + + | Marital Status | Single | + + + | Restorationism Affiliation | 1041 | + + + | Race | or | + + + | Ethnic Group | Not or | + + + Author + + + | Author | [facility] | | | and [place] | + + + | Organization | [facility] | | | and [place] | + + + | Address | Unknown | + + + | Phone | Unavailable | + + + Support + + + + + | Name | Relationship | Address | Phone | + + + + + | Joanne Pham | ECON | [address] | | | | | [place] | | | | | [phone] | | + + + + + | Viktor Son | EDDIE | Unknown | | + + + + + | Edd Gill | ECON | Unknown | | + + + + + | Conner Barber | ECON | Unknown | | + + + + + Care Team Providers + +------+ + | Care Visual Basic Developer Name | Role | Phone | + +------+ + PCP | Unavailable | + +------+ + Encounter Details +--------+ + + + + | Date | Type | Department | Care Team | Description | +--------+ + + + + | 02/06/ | Hospital | [facility] | [place], | Fever; Seizure | | 2013 - | Encounter | [facility] | [address] | (FORMERLY [facility]); Alcohol | | | | [address] | abuse; UTI (lower | | 02/13/ | | [place], [place] | [place] [address] | urinary tract | | 2013 | | [id number] | [phone] | infection); Hepatic | | | | [phone] | | encephalopathy | | | | [...] Date of Service: 02/13/14 0955 Status: Signed Electrophysiology Tech: Micki Redding MD (Physician) Related Notes: Original Note by Micki Redding MD (Physician) filed at 02/13/14 1002 [facility] Service: Hospitalist Physician Discharge Summary Patient ID: [...] Surgeon: Mitchell Stewart IV, MD; Location: [facility]; Service: Gastroenterology; Laterality: N/A; anesthesia assist [...] Feb 07 2014 3:55AM Referring Provider Line: [phone] ID: 001 X-ray Chest 1 View 02/09/2014 [...] The mitr al valve is normal. 18. Jcre-yz-tfggafxl mitral regurgitation is present. 19. , the [...] are the prescriptions that you need to picking belt operator. You may get the following medications from [...] summary. This entry has been created using [employer] Speech Recognition software and [facility]. The entry has been reviewed and there [...] Date of Service: 02/13/14 1508 Status: Signed Electrophysiology Tech: Flora Seaman RN (Registered Nurse) Discharge teaching [...] Efra Gotti PTA Service: (none) Author Type: Technical Professional Filed: 02/13/14 1051 Date of Service: 02/13/14 1049 Status: Signed Electrophysiology Tech: Efra Gotti PTA (Technical Professional) 02/13/14 1049 PT Last Visit PT Received [...] 8:29 PM PST Progress Notes by Alessandro Ward RN at 02/12/142028 Author: Alessandro Ward RN Service: (none) Author Type: Registered Nurse Filed: 02/12/142031 Date of Service: 02/12/142028 Status: Signed Electrophysiology Tech: Alessandro Ward RN (Registered Nurse) Per protocol, CIWA discontinued as of 1999 Micki Walton MD - 02/12/2014 2:08 PM PSTFormatting of this note might be different from t hanny original. Progress Notes by Micki Redding MD at 02/12/141407 Author: Micki Redding MD Service: (none) Author Type: Physician Filed: 02/12/14 1543 Date of Service: 02/12/14 1408 Status: Signed Electrophysiology Tech: Micki Redding MD (Physician) [facility] Service: Hospitalist Progress Note Hospital Day: LOS: [...] Feb 07 2014 3:55AM Referring Provider Line: [phone] ID: 001 X-ray Chest 1 View 02/09/2014 [...] PM This entry has been created using [employer] Speech Recognition software and [facility]. The entry has been reviewed and there may still exist sound alike word errors. Mallory Gonzalez PT - 02/12/2014 9:28 AM PST Therapy Progress Note by Mallory Metz PT at 02/12/14927 Author: Mallory Metz PT Service: (none) Author Type: Physical Therapist Filed: 02/12/14 1121 Date of Service: 02/12/14927 Status: Signed Electrophysiology Tech: Mallory Metz PT (Physical Therapist) 02/12/14927 PT Last Visit PT Received On 02/12/14 Reason for Treatment Other (comment) (seizure and ETOH withdrawl) Requires PT Follow Up Awaiting tx order Follow up PT Only? No PT Eval/Reassessment Date 02/12/14 Assistance Required 1 person Gun Perforator Loader Needed No Precautions Other Precautions fall risk, [...] this hospital stay. Prior Function Level of [place] Independent with functional mobility;Independent with ADLs;Independe nt [...] Eval/Reassessment Date 02/12/14 Assistance Required 1 person Gun Perforator Loader Needed No Precautions Other Precautions fall risk, seizure Other Comments Comments Pt admitted to the hospital due to seizure and ETOH withdrawl. Upon PT arrival, pt in bathroom with BRUSH OPERATOR. pt Handoff from BRUSH OPERATOR. Pt agreeable to PT assessment. Pt is [...] 02/12/14323 Date of Service: 02/12/14322 Status: Signed Electrophysiology Tech: Alessandro Ward RN (Registered Nurse) Left message with PICC RN about clotted lines & requested that someone come to assess this am Dimitri Head MS CCC-AUTOMOTIVE TECHNOLOGY INSTRUCTOR - 02/11/2014 5:18 PM PST Therapy Progress Note by Anette Hernandez MS CCC-AUTOMOTIVE TECHNOLOGY INSTRUCTOR at 02/11/141717 Author: Anette Hernandez MS CCC-AUTOMOTIVE TECHNOLOGY INSTRUCTOR Service: (none) Author Type: Speech and Language Pathol ogist Filed: 02/11/141717 Date of Service: 02/11/141717 Status: Signed Electrophysiology Tech: Anette Hernandez MS CCC-AUTOMOTIVE TECHNOLOGY INSTRUCTOR (Speech and Language Pathologist) 02/11/141714 Swallowing Assessment [...] /sx aspiration. Pt no longer requires acute AUTOMOTIVE TECHNOLOGY INSTRUCTOR services. AUTOMOTIVE TECHNOLOGY INSTRUCTOR to d/c, pleas re-order if pt s tatus changes. Staff Notified RN Plan of Care Treatment Plan No futher therapy recommended;Discharge from at this time Dysphagia Goals Pt will have safe/efficient oral intake Thin liquids;Goal met ANETTE HERNANDEZ MS CCC-AUTOMOTIVE TECHNOLOGY INSTRUCTOR 02/11/2014 onversion Giraldo saction, Provider Unknown - 02/11/2014 4:50 PM PSTFormatting of this note might be differen t from the original. Case Management by HANNAH Brian at 02/11/14 1650 Author: HANNAH Brian Service: (none) Author Type: Therapeutic Program Worker Filed: 02/11/141701 Date of Service: 02/11/141649 Status: Signed Electrophysiology Tech: HANNAH Brian (Therapeutic Program Worker) 02/11/14 1600 Discharge Planning Evaluation Admitting Diagnosis Seizure, ETOH withdrawl Anticipated Disposition Facility Type Home COSMETIC CONSULTANT met with Pt regarding discharge planning, states she is planning to return to prior morgan ing environment where she lives in a home owned by her aunt Joanne Pham. Pt states home is occupied by her uncle, brother and two other women, states there is recreational drinkin g in the home. COSMETIC CONSULTANT asked Pt about brusing on legs/arms, denies how they go there, was guarded about her en vironment. COSMETIC CONSULTANT encouraged to stay with other family members [...] Lolita Lamas, Alcohol and Drug Counselor at [facility], states Pt has a standing appointment at 10am every . Lolita states she has assisted Pt with ho using resources and states Pt is on a waiting list. Lolita states Pt has been history of bein g homeless, being destitute and living in alleys in the streets in [place], [place], before being taken care by Pt aunt. Lolita Lamas states she has tried to place Pt in inpatient treatment, states this is difficu lt due to Pt being end stage liver disease. [facility] - [phone] ([phone]) [address] / [address] / [place] [address] / Pt does not want to consider placement in a group home Facility. DCP: Home ARUN CHAVEZ, Health Services Administrator [phone] cell Sarah Rangel, Provider Unknown - 02/11/2014 1:45 PM PST Therapy Progress Note by Fabiana Ortiz PT at 02/11/14 1345 Author: Fabiana Ortiz PT Service: (none) Author Type: Physical Therapist Filed: 02/11/14 1352 Date of Service: 02/11/14 1345 Status: Signed Electrophysiology Tech: Fabiana Ortiz PT (Physical Therapist) 02/11/14 1345 [...] Ortiz PT at 02/11/14 1045 Author: Fabiana Ortiz PT Service: (none) Author Type: Physical Therapist Filed: 02/11/14 1052 Date of Service: 02/11/14 1045 Status: Signed Electrophysiology Tech: Fabiana Ortiz PT (Physical Therapist) 02/11/14 1045 PT Last Visit PT Received On 02/11/14 Requires PT Follow Up Unavailable Other Comments Comments Attempted to see pt 2x this AM, she was in with the BRUSH OPERATOR getting cleaned up and BRUSH OPERATOR asked PT to come back in 15 min, then social welfare clerk in with pt upon second arrival and aske d pt to come back at a later time. Will attempt to see pt as census allows onver miriam Transaction, Provider Unknown - 02/11/2014 10:09 AM PST Case Management by HANNAH Brian at 02/11/14 1009 Author: HANNAH Brian Service: (none) Author Type: Therapeutic Program Worker Filed: 02/11/14 1010 Date of Service: 02/11/14 1009 Status: Signed Electrophysiology Tech: HANNAH Brian (Therapeutic Program Worker) 02/11/14 1000 Discharge Planning Evaluation Admitting Diagnosis Seizure, ETOH withdrawl Anticipated Disposition Facility Type Home COSMETIC CONSULTANT came by room to assess Pt for discharge planning was in bathroom, will continue to foll ow for discharge needs. ARUN CHAVEZ, Health Services Administrator [phone] cell onver miriam Transaction, Provider Unknown - 02/11/2014 8:50 AM PST Progress Notes by Savannah Clarke RN at 02/11/14 0850 Author: Savannah Clarke RN Service: (none) Author Type: Registered Nurse Filed: 02/11/14 0855 Date of Service: 02/11/14 0850 Status: Signed Electrophysiology Tech: Savannah Clarke RN (Registered Nurse) Called by [...] Notes by Micki Redding MD at 02/11/14 0778 Author: Micki Redding MD Service: (none) Author Type: Physician Filed: 02/11/14 0754 Date of Service: 02/11/1446 Status: Signed Electrophysiology Tech: Micki Redding MD (Physician) [facility] Service: Hospitalist Progress Note Hospital Day: LOS: 5 days SUBJECTIVE Patient Summary: 43-year-old female with history of alcohol abuse. history of withdra wal seizures, cirrhosis, hypertension, admitted with seizures and urinary tract infection. S he was started on Zosyn and Zithromax for possible pneumonia and switched over to Omnicef an d Zithromax . Patient is on the [facility] protocol follow-up, withdrawal Events Overnight: Patient states [...] Feb 07 2014 3:55AM Referring Provider Line: [phone] ID: 001 X-ray Chest 1 View 02/09/2014 [...] AM This entry has been created using [employer] Speech Recognition software and [facility]. The entry has been reviewed and there may still exist sound alike word errors. onversion Trans action, Provider Unknown - 02/10/2014 4:20 PM PST Therapy Progress Note by Daly Cuba MS CCC-AUTOMOTIVE TECHNOLOGY INSTRUCTOR at 02/10/14 1440 Author: Daly Cuba MS CCC-AUTOMOTIVE TECHNOLOGY INSTRUCTOR Service: (none) Author Type: Speech and Home Performance Laborer ologist Filed: 02/10/14 6069 Date of Service: 02/10/14 1620 Status: Signed Electrophysiology Tech: Daly Cuba MS CCC-AUTOMOTIVE TECHNOLOGY INSTRUCTOR (Speech and Language Pathologist) 02/10/14 1620 Swallowing [...] diet to regular,cut up,cont th in liquids. AUTOMOTIVE TECHNOLOGY INSTRUCTOR to f/u x1 to ensure santy. Staff Notified MD;RN Plan of Care Treatment Plan ST to follow;Dysphagia treatment;Follow up x1 to ensure tolerance Follow up treatments Patient/Family education;Diet tolerance monitoring Dysphagia Goals Short Term Goals Tolerate diet Pt will tolerate diet Dysphagia mechanically altered;With min supervision;Goal met iMcki Walton MD - 02/10/2014 8:12 AM PSTFormatting of this note might be different from t hanny original. Progress Notes by Micki Redding MD at 02/10/14 0812 Author: Micki Redding MD Service: (none) Author Type: Physician Filed: 02/10/14 7116 Date of Service: 02/10/14811 Status: Signed Electrophysiology Tech: Micki Redding MD (Physician) [facility] Service: Hospitalist Progress Note Hospital Day: LOS: [...] Feb 07 2014 3:55AM Referring Provider Line: [phone] ID: 001 X-ray Chest 1 View 02/09/2014 [...] AM This entry has been created using [employer] Speech Recognition software and [facility]. The entry has been reviewed and there may still exist sound alike word errors. onversion Trans action, Provider Unknown - 02/10/2014 5:42 AM PST Progress Notes by Yamileth Mcnally RN at 02/10/1442 Author: Yamileth Mcnally RN Service: (none) Author Type: Registered Nurse Filed: 02/10/14 0553 Date of Service: 02/10/14541 Status: Signed Electrophysiology Tech: Yamileth Mcnally RN (Registered Nurse) Received pt. Refer to [facility] assessment, medicated at that time, slept until 0200, awoke hun gry, at cheese sandwish, jetanao, 7up, tolerated well. Became emotional crying because her caleb ther did not visit, re-orientated to date and time, no recollection of how she got here, rem embers going to [place] in [place]. Asked pt. If she was trying to [...] Date of Service: 02/09/14 1714 Status: Signed Electrophysiology Tech: Manisha Lemus RN (Registered Nurse) Nurse called to report picc line not flushing after picc placed. Picc nurse changed dressin g and pulled out picc to 7cm with triple lumens flushing well and positive blood return. New sterile dressing placed. onver miriam Transaction, Provider Unknown - 02/09/2014 4:45 PM PST Therapy Progress Note by Daly Cuba MS CCC-AUTOMOTIVE TECHNOLOGY INSTRUCTOR at 02/09/14 1645 Author: Daly Cuba MS CCC-AUTOMOTIVE TECHNOLOGY INSTRUCTOR Service: (none) Author Type: Speech and Home Performance Laborer ologist Filed: 02/09/141651 Date of Service: 02/09/141644 Status: Signed Electrophysiology Tech: Daly Cuba MS CCC-AUTOMOTIVE TECHNOLOGY INSTRUCTOR (Speech and Language Pathologist) 02/09/141644 Swallowing Assessment [...] current diet at this time w/aspiration precautions. AUTOMOTIVE TECHNOLOGY INSTRUCTOR to cont to fo llow for diet santy and to upgrade as indicated. Staff Notified RN Plan of Care Treatment Plan ST to follow;Dysphagia treatment;Continue with current plan Follow up treatments Diet tolerance monitoring;Patient/Family education;Assessment for upgr tirso Dysphagia Goals Electrical Unit Rebuilder Goals Safe/efficient oral intake Pt will have safe/efficient oral intake Thin liquids;Goal progressing Celso Madsen MD - 02/09/2014 1:05 PM PST Progress Notes by Celso Goldberg MD at 02/09/14 1305 Author: Celso Goldberg MD Service: Hospitalist Author Type: Physician Filed: 02/09/14 131 Date of Service: 02/09/14 1305 Status: Signed Electrophysiology Tech: Celso Goldberg MD (Physician) [facility] Service: Hospitalist Progress Note Pt: Shaila Son AGE/SEX: 43 y.o. female ROOM: [address] [place] [address] : 1970 PCP: Efra Holguin ADMIT DATE: [...] Unable to recall, this information came from [facility] record Ibuprofen Other (See Comments) Pt. Unable to recall, this information came from [facility] record OBJECTIVE: Vitals: Patient Vitals for the [...] results found for this basename: PHART, PO2ART, LJP6JHY, [id number], BEART, in the last 1 68 hours [...] Date of Service: 02/09/14 1146 Status: Signed Electrophysiology Tech: Lonnie Liu RD, NITIN (Registered Dietitian) Nutrition [...] on admit wt of 68.9 kg. Kcal: 1863-7637 kcal/day (30-35 kcal/kg). Increased kcal needs with [...] meal by time of discharge. Recommendations: General [facility] diet with thin liquids as ordered. Can limit sodium if fluid retention an issue. Further diet consistency recommendations per AUTOMOTIVE TECHNOLOGY INSTRUCTOR. Sit ter/nursing staff to assist with feeds. [...] 02/09/14347 Date of Service: 02/09/14346 Status: Signed Electrophysiology Tech: Yumiko Watson RN (Registered Nurse) Patient has been experiencing hallucinations and agitation. Attempting to pull out IV line s and kick sitter when repositioning the patient. Medicating with Valium every hour with DC N ativan and haldol as well. CIWA scores remain above 15. Will continue to monitor. Celso Madsen MD - 02/08/2014 5:30 PM PST Progress Notes by Celso Goldberg MD at 02/08/141729 Author: Celso Goldberg MD Service: Hospitalist Author Type: Physician Filed: 02/08/14 899 Date of Service: 02/08/141729 Status: Addendum Electrophysiology Tech: Celso Goldberg MD (Physician) Related Notes: Original Note by Celso Goldberg MD (Physician) filed at 02/08/14 6805 [facility] Service: Hospitalist Progress Note Pt: Shaila Son AGE/SEX: 43 y.o. female ROOM: [address] [place], [place] [address] : 1970 PCP: Efra Holguin ADMIT DATE: [...] Unable to recall, this information came from [facility] record Ibuprofen Other (See Comments) Pt. Unable to recall, this information came from [facility] record OBJECTIVE: Vitals: Patient Vitals for the [...] results found for this basename: PHART, PO2ART, SVS9ICO, F1FYSWPN, BEART, in the last 1 68 hours [...] alcohol withd yamila, continue IV Ativan per [facility] protocol and for seizure. Possible hepatic encephalopathy [...] 1126 Date of Service: 02/08/141121 Status: Signed Electrophysiology Tech: Elida Gamble RN (Registered Nurse) Patient became [...] 02/08/14812 Date of Service: 02/08/14809 Status: Signed Electrophysiology Tech: Elida Gamble RN (Registered Nurse) Discussed case [...] alarm in place with frequent nurse and BRUSH OPERATOR presence in patients room. Patient confused and hallucinating. Will continue to monitor onver miriam Transaction, Provider Unknown - 02/08/2014 4:33 AM PST Progress Notes by Alessandro Ward RN at 02/08/14432 Author: Alessandro Ward RN Service: (none) Author Type: Registered Nurse Filed: 02/08/145 Date of Service: 02/08/14432 Status: Signed Electrophysiology Tech: Alessandro Ward RN (Registered Nurse) Pt experiencing visual and auditory hallucinations, very agitated, impulsive. CIWA protoco l in place. Pt requires very close supervision onver miriam Transaction, Provider Unknown - 02/08/2014 1:47 AM PDT Progress Notes by Alessandro Ward RN at 02/08/14146 Author: Alessandro Ward RN Service: (none) Author Type: Registered Nurse Filed: 02/08/14 0154 Date of Service: 02/08/14146 Status: Signed Electrophysiology Tech: Alessandro Ward RN (Registered Nurse) Pt very [...] Olman Mendoza RN Service: (none) Author Type: Health Services Administrator Filed: 02/07/14 1432 Date of Service: 02/07/141427 Status: Signed Electrophysiology Tech: Olman Mendoza RN (Health Services Administrator) 02/07/141426 Discharge Planning Evaluation Admitting Diagnosis Seizure, [...] PM PDT Therapy Progress Note by CONOR Ramírez-AUTOMOTIVE TECHNOLOGY INSTRUCTOR at 02/07/14 1202 Author: CONOR Ramírez-AUTOMOTIVE TECHNOLOGY INSTRUCTOR Service: (none) Author Type: Speech and Language Patholo gist Filed: 02/07/14 1202 Date of Service: 02/07/14 120 Status: Signed Electrophysiology Tech: CONOR Ramírez-AUTOMOTIVE TECHNOLOGY INSTRUCTOR (Speech and Language Pathologist) 02/07/14 1125 Swallowing [...] for upgrade, and swallow safety. Staff Notified MD;RN;BRUSH OPERATOR Plan of Care Treatment Plan Dysphagia treatment;ST to follow;Daily 4 to 6 times a week Follow up treatments Swallow strategies;Diet tolerance monitoring;Patient/Family education; Assessment for upgrade Dysphagia Goals Electrical Unit Rebuilder Goals Safe/efficient oral intake Pt will have safe/efficient oral intake Thin liquids;Dysphagia mechanically altered diet;N ew/revised goal;With min cues Short Term Goals Tolerate diet Pt will tolerate diet Dysphagia mechanically altered;With min supervision;New/revised goal Anitha Duran MA CFY-AUTOMOTIVE TECHNOLOGY INSTRUCTOR 02/07/2014 Celso Madsen MD - 02/07/2014 8:52 AM PDT Progress Notes by Celso Goldberg MD at 02/07/14851 Author: Celso Goldberg MD Service: Hospitalist Author Type: Physician Filed: 02/07/142023 Date of Service: 02/07/14851 Status: Addendum Electrophysiology Tech: Celso Goldberg MD (Physician) Related Notes: Original Note by Celso Goldberg MD (Physician) filed at 02/07/141931 [facility] Service: Hospitalist Progress Note Pt: Shaila Son AGE/SEX: 43 y.o. female ROOM: [address] [place] [address]- : 1970 PCP: Efra Holguin ADMIT DATE: [...] Unable to recall, this information came from [facility] record Ibuprofen Other (See Comments) Pt. Unable to recall, this information came from [facility] record OBJECTIVE: Vitals: Patient Vitals for the [...] results found for this basename: PHART, PO2ART, CEI7JUO, X6LEKKNS, BEART, in the last 1 68 hours [...] recurrence since admission, continue IV Ativan per [facility] protocol and for seizure. She has mild [...] this patie nt today. Celso Goldberg MD 02/07/2014 8:52 AM onversion Transac tion, Provider Unknown - 02/07/2014 3:40 AM PDTFormatting of this note might be different f rom the original. Progress Notes by Jelly Agudelo RN at 02/07/14339 Author: Jelly Agudelo RN Service: (none) Author Type: Registered Nurse Filed: 02/07/14341 Date of Service: 02/07/14339 Status: Signed Electrophysiology Tech: Jelly Agudelo RN (Registered Nurse) This Rn received message from another staff member that a male named Meño called to the un it stating to be the brother of Shaila Son. I am unable to confirm this with Shaila at this time due to her altered mental status. He left a phone number of [phone]. onver miriam Transaction, Provider Unknown - 02/07/2014 1:51 AM PDT Progress Notes by Vandana Mcnally RPH at 02/07/14150 Author: Vandana Mcnally RPH Service: (none) Author Type: Pharmacist Filed: 02/07/14150 Date of Service: 02/07/14150 Status: Signed Electrophysiology Tech: Vandana Mcnally RPH (Pharmacist) Clinical Pharmacy Note: Renal Monitoring & Extended Interval Zosyn Dosing Shaila Son 43 y.o. female Height: 170.2 cm Weight: 68.9 kg Serum Creatinine: 0.6 mg/dL (from [facility]) Estimated creatinine clearance - Cockcroft-Gault CrCl: 126 [...] H&P by Deonte Morales MD at 02/06/14 323 Author: Deonte Morales MD Service: Hospitalist Author Type: Physician Filed: 02/07/14 0006 Date of Service: 02/06/142340 Status: Signed Electrophysiology Tech: Deonte Morales MD (Physician) [facility] Service: Hospitalist Admission History & Physical Date of Admission: 02/06/2014 Requesting Physician: Dr Baptiste, Emergency Department Reason for Admission: Seizure / transfer from [facility] History Obtained From: patient CHIEF COMPLAINT: Seizure [...] the patie nt was subsequently transferred to [facility] for further assessment and treatment. Patient refers positive dysuria and urinary frequency. In the ED at [facility] positive fever with a MAXIMUM TEMPERATURE of [...] Surgeon: Mitchell Stewart IV, MD; Location: [facility]; Service: Gastroenterology; Laterality: N/A; anesthesia assist if available since may be difficult to sedate Hx of tracheostomy Immunizations: Influenza: Pneumoccocal: Allergies Allergen Reactions Ciprofloxacin Other (See Comments) Pt. Unable to recall, this information came from [facility] record Ibuprofen Other (See Comments) Pt. Unable to recall, this information came from [facility] record (Not in a hospital admission) History [...] negative brudzinsky DATA [facility] acute ST changes [...] to the ED as a transfer from [facility] with seizures, fever. Assessment -Seizures. History and [...] 02/11/141117 Date of Service: 02/11/141111 Status: Signed Electrophysiology Tech: Loni Verma RD (Registered Dietitian) Consult Orders: 1. Inpatient consult to Dietary [[id number]] ordered by Micki Redding MD at 02/11 3728 Nutrition Assessment and Recommendations Assessment: Nutritionally pertinent [...] 02/07/1425 Date of Service: 02/07/1425 Status: Signed Electrophysiology Tech: Scott Kilgore RN (Registered Nurse) Urine collected and sent to lab. Scott Kilgore RN 02/07/1425 onver miriam Transaction, Provider Unknown - 02/06/2014 10:46 PM PDT ED Notes by Scott Kilgore RN at 02/06/14 2246 Author: Scott Kilgore RN Service: (none) Author Type: Registered Nurse Filed: 02/06/142245 Date of Service: 02/06/142245 Status: Signed Electrophysiology Tech: Scott Kilgore RN (Registered Nurse) Lab at bedside with pt. Scott Kilgore RN 02/06/142245 onver miriam Transaction, Provider Unknown - 02/06/2014 10:40 PM PDT ED Notes by Scott Kilgore RN at 02/06/142239 Author: Scott Kilgore RN Service: (none) Author Type: Registered Nurse Filed: 02/06/142239 Date of Service: 02/06/142239 Status: Signed Electrophysiology Tech: Scott Kilgore RN (Registered Nurse) Lab called for LEGAL PROJECT MANAGER, to draw BC x2. Scott Kilgore RN 02/06/142239 Jakub Munguia DO - 02/06/2014 10:27 PM PDT ED Provider Notes by Jakub Baptiste DO at 02/06/142226 Author: Jakub Baptiste DO Service: Emergency Department Author Type: Physician Filed: 02/07/14 0700 Date of Service: 02/06/142226 Status: Signed Electrophysiology Tech: Jakub Baptiste DO (Physician) Procedure Orders: 1. Critical Care [[id number]] ordered by Jakub Baptiste DO at 02/07/14 0659 [facility] Department of Emergency Medicine 7:00 AM History of Present Illness Patient Identification Shaila Son is a 43 y.o. female. Patient information was obtained from patient and past medical records. History/Exam limitations: none. Patient presented to the Emergency Department by: [facility] Chief Complaint Chief Complaint Patient presents with Alcohol Problem Xfer from [facility] for ETOH withdrawl. Delirium Tremens (DTS) Seizures [...] Surgeon: Mitchell Stewart IV, MD; Location: [facility]; Service: Gastroenterology; Laterality: N/A; anesthesia assist if available since may be difficult to sedate Hx of tracheostomy Prior to Admission medications Medication Sig Start Date End Date Taking? Authorizing Provider Vit-Fe Fumarate-FA ( MULTIVITAMIN & MINERALS W IRON/FA) 27-0.8 MG TABS tab let Take 1 tablet by mouth daily. 03/28/13 Precious Milelr MD spironolactone (ALDACTONE) 25 MG tablet Take 1 tablet by mouth 2 (two) times daily. 3 03/28/14 Precious Miller MD thiamine 100 MG tablet Take 1 tablet by mouth daily. 03/28/13 03/28/14 Precious Miller MD Allergies Allergen Reactions Ciprofloxacin Other (See Comments) Pt. Unable to recall, this information came from [facility] record Ibuprofen Other (See Comments) Pt. Unable to recall, this information came from [facility] record History Social History Marital Status: Single [...] Value Ref Range Date/Time Urine microscopic only [[id number]] (Abnormal) Collected: 02/06/142335 Order Status: Completed Updated: 02/07/14 0048 WBC 11-15 0 - 5 /hpf RBC 16-25 0 - 5 /hpf EPITHELIAL 26-50 /lpf BACTERIA 4+ (A) NONE SEEN Mucus, UA 2+ Blood culture_set 1 [[id number]] Collected: 02/06/142249 Order Status: Sent Updated: 02/07/1411 Specimen Information: Blood / Blood Blood culture, set 2 [[id number]] Collected: 02/06/142252 Order Status: Sent Updated: 02/07/1411 Specimen Information: Blood / Blood POC clinitek 10 [[id number]] (Abnormal) Collected: 02/06/142334 Order Status: Completed Updated: [...] NEGATIVE WBC, UA NEGATIVE NEGATIVE Ammonia level [[id number]] (Abnormal) Collected: 02/06/142252 Order Status: Completed Updated: [...] List Dr. Jakub Baptiste D.O. Dictation software, MYOS, used which may contain error for similar [...] or life-threatening deterioration of the following conditions: DAY CARE PROVIDER failure or compromise. Critical care was time [...] 02/06/142225 Date of Service: 02/06/142225 Status: Signed Electrophysiology Tech: Grant Ratliff RN (Registered Nurse) Dr Baptiste at bedside with pt. Grant Ratliff RN 02/06/142225 onver miriam Transaction, Provider Unknown - 02/06/2014 10:14 PM PDT ED Notes by Scott Kilgore RN at 02/06/142213 Author: Scott Kilgore RN Service: (none) Author Type: Registered Nurse Filed: 02/06/142213 Date of Service: 02/06/142213 Status: Signed Electrophysiology Tech: Scott Kilgore RN (Registered Nurse) Bed: 03 Expected date: Expected time: Means of arrival: Comments: onver miriam Transaction, Provider Unknown - 02/06/2014 9:48 PM PDT ED Notes by Jose Carlos Anderson RN at 02/06/142147 Author: Jose Carlos Anderson RN Service: (none) Author Type: Registered Nurse Filed: 02/06/142150 Date of Service: 02/06/142147 Status: Signed Electrophysiology Tech: Jose Carlos Anderson RN (Registered Nurse) Pt is a transfer from [facility] for ETOH withdrawal and seizures. Pt has Hx ETOH abuse , seizures, anemia, and cirhossis. Pt has not had ETOH for three days and had seizures at h ome. Pt was given Ativan and zofran at [facility], no seizures at [facility] Pt is u nsteady on feet, has [...] 02/10/14307 Date of Service: 02/10/14307 Status: Signed Electrophysiology Tech: Yamileth Mcnally RN (Registered Nurse) Problem: Defensive [...] 02/09/141312 Date of Service: 02/09/141309 Status: Signed Electrophysiology Tech: Alice Varma RN (Registered Nurse) No seizure [...] 02/08/14737 Date of Service: 02/08/14737 Status: Signed Electrophysiology Tech: Elida Gamble RN (Registered Nurse) Problem: RISK [...] EXTERNAL | | | | performed at [facility] | | LAB | | | | [facility];[place], [place] | | | | | | [address] | | | | + + + [...] EXTERNAL | | | | performed at [facility] | | LAB | | | | [address];[place] | | | | | | [address] | | | | + + + + + + | Non- | 2.75 (L)Comment: Testing | 3.70 - 5.10 | EXTERNAL | | | Red Blood | performed at [facility] | M/uL | LAB | | | Cells | [address];[place] | | | | | Counted | [address] | | | | + + + + + + | Hemoglobin | 8.5 (L)Comment: Testing | 11.3 - 15.5 | EXTERNAL | | | | performed at [facility] | g/dL | LAB | | | | [address];[place] | | | | | | [address] | | | | + + + + + + | Hematocrit, | 25.3 (L)Comment: Testing | 34.0 - 46.0 % | EXTERNAL | | | POC | performed at [facility] | | LAB | | | | [address];[place] | | | | | | [address] | | | | + + + + + + | MCV | 92.0Comment: Testing | 80.0 - 100.0 fl | EXTERNAL | | | | performed at [facility] | | LAB | | | | [address];[place] | | | | | | [address] | | | | + + + + + + | MCH | 31.0Comment: Testing | 27.0 - 34.0 pg | EXTERNAL | | | | performed at [facility] | | LAB | | | | [address];[place] | | | | | | [address] | | | | + + + + + + | MCHC | 33.6Comment: Testing | 32.0 - 35.5 | EXTERNAL | | | | performed at [facility] | g/dL | LAB | | | | [address];[place] | | | | | | [address] | | | | + + + + + + | RDW-CV | 58.2 (H)Comment: Testing | 37 - 53 fl | EXTERNAL | | | | performed at [facility] | | LAB | | | | [address];[place] | | | | | | [address] | | | | + + + + + + | Platelet | 101 (L)Comment: Testing | 150 - 400 K/uL | EXTERNAL | | | Count | performed at [facility];[address] | | LAB | | | Plasma | [address];[place] | | | | | | [address] | | | | + + + + + + | MPV | 8.3Comment: Testing | fl | EXTERNAL | | | | performed at [facility];[address] | | LAB | | | | [address];[place] | | | | | | [address] | | | | + + + + + + | Differentia | AUTOMATEDComment: | | EXTERNAL | | | l Type | Testing performed at | | LAB | | | | [facility] | [address];[place] [address] | | | | + + + + + + | % Segmented | 50.8Comment: Testing | % | EXTERNAL | | | | performed at [facility];[address] | | LAB | | | Neutrophils | [address];[place] | | | | | | [address] | | | | + + + + + + | % | 16.5Comment: Testing | % | EXTERNAL | | | Lymphocytes | performed at [facility];[address] | | LAB | | | | [address];[place] | | | | | | [address] | | | | + + + + + + | % Monocytes | 25.0Comment: Testing | % | EXTERNAL | | | | performed at [facility];[address] | | LAB | | | | [address];[place] | | | | | | [address] | | | | + + + + + + | % | 4.5Comment: Testing | % | EXTERNAL | | | Eosinophils | performed at [facility];[address] | | LAB | | | | [address];[place] | | | | | | [address] | | | | + + + + + + | % Basophils | 3.2Comment: Testing | % | EXTERNAL | | | | performed at [facility];[address] | | LAB | | | | [address];[place] | | | | | | [address] | | | | + + + + + + | Absolute | 1.9Comment: Testing | 1.9 - 7.4 K/uL | EXTERNAL | | | Segmented | performed at [facility];[address] | | LAB | | | Neutrophils | [address];[place] | | | | | | [address] | | | | + + + + + + | Absolute | 0.6 (L)Comment: Testing | 1.0 - 3.9 K/uL | EXTERNAL | | | Lymphocytes | performed at [facility];[address] | | LAB | | | | [address];[place] | | | | | | [address] | | | | + + + + + + | Absolute | 0.9 (H)Comment: Testing | 0 - 0.8 K/uL | EXTERNAL | | | Monocytes | performed at [facility];[address] | | LAB | | | | [address];[place] | | | | | | [address] | | | | + + + + + + | Absolute | 0.2Comment: Testing | 0 - 0.5 K/uL | EXTERNAL | | | Eosinophils | performed at [facility];[address] | | LAB | | | | [address];[place] | | | | | | [address] | | | | + + + + + + | Absolute | 0.1Comment: Testing | 0 - 0.1 K/uL | EXTERNAL | | | Basophils | performed at [facility];[address] | | LAB | | | | [address];[place] | | | | | | [address] | | | | + + + + + + | RBC | 1+Comment: ANISONORMAL | | EXTERNAL | | | Morphology | PLT MORPHTesting | | LAB | | | | performed at [facility];[address] | | | | | | [address];[place] | | | | | | [address] | | | | | | | [...] | performed at [facility], [address] | | LAB | | | | [address], | | | | | | [place] [address] | | | | + + + [...] | | | | | [place] [address] | | | | + + + + + + | K | 4.1Comment: Testing | 3.5 - 4.9 | EXTERNAL | | | | performed at [facility], [address] | mmol/L | LAB | | | | [address], | | | | | | [place] [address] | | | | + + + + + + | Cl | 105Comment: Testing | 99 - 109 mmol/L | EXTERNAL | | | | performed at [facility], [address] | | LAB | | | | [address], | | | | | | [place] [address] | | | | + + + + + + | CO2 | 25Comment: Testing | 23 - 32 mmol/L | EXTERNAL | | | | performed at [facility], [address] | | LAB | | | | [address], | | | | | | [place] [address] | | | | + + + + + + | Anion Gap | 6Comment: Testing | 5 - 20 mmol/L | EXTERNAL | | | | performed at [facility], [address] | | LAB | | | | [address], | | | | | | [place] [address] | | | | + + + + + + | Glucose, | 95Comment: Testing | 65 - 99 mg/dL | EXTERNAL | | | Fasting | performed at [facility], [address] | | LAB | | | | [address], | | | | | | [place] [address] | | | | + + + + + + | BUN | 9Comment: Testing | 8 - 25 mg/dL | EXTERNAL | | | | performed at [facility], [address] | | LAB | | | | [address], | | | | | | [place] [address] | | | | + + + + + + | Creatinine | 0.53Comment: Testing | 0.50 - 1.00 | EXTERNAL | | | | performed at [facility], [address] | mg/dL | LAB | | | | [address], | | | | | | [place] [address] | | | | + + + + + + | BUN/Creatin | 17Comment: Testing | | EXTERNAL | | | ine Ratio | performed at [facility], [address] | | LAB | | | | [address], | | | | | | [place] [address] | | | | + + + + + + | Calcium | 8.6Comment: Testing | 8.5 - 10.2 | EXTERNAL | | | | performed at [facility], [address] | mg/dL | LAB | | | | [address], | | | | | | [place] [address] | | | | + + + + + + | Protein, | 5.4 (L)Comment: Testing | 6.3 - 8.2 g/dL | EXTERNAL | | | Total | performed at [facility], [address] | | LAB | | | | [address], | | | | | | [place] [address] | | | | + + + + + + | Albumin | 2.1 (L)Comment: Testing | 3.6 - 5.0 g/dL | EXTERNAL | | | | performed at [facility], [address] | | LAB | | | | [address], | | | | | | [place] [address] | | | | + + + + + + | Globulin | 3.3Comment: Testing | 1.3 - 4.9 g/dL | EXTERNAL | | | | performed at [facility], [address] | | LAB | | | | [address], | | | | | | [place] [address] | | | | + + + + + + | A/G Ratio | 0.6 (L)Comment: Testing | 1.0 - 2.4 | EXTERNAL | | | | performed at [facility], [address] | | LAB | | | | [address], | | | | | | [place], [place] [address] | | | | + + + + + + | Bilirubin | 0.7Comment: Testing | 0.1 - 1.5 mg/dL | EXTERNAL | | | Total | performed at [facility], [address] | | LAB | | | | [address], | | | | | | [place] [address] | | | | + + + + + + | ALP, | 129 (H)Comment: Testing | 35 - 115 U/L | EXTERNAL | | | External | performed at [facility], [address] | | LAB | | | | [address], | | | | | | [place] [address] | | | | + + + + + + | AST | 37Comment: Testing | 10 - 45 U/L | EXTERNAL | | | | performed at [facility], [address] | | LAB | | | | [address], | | | | | | [place] [address] | | | | + + + + + + | ALT | 13Comment: Testing | 10 - 65 U/L | EXTERNAL | | | | performed at [facility], [address] | | LAB | | | | [facility], | | | | | | [place] [address] | | | | + + + [...] W | | | | | | [facility], | | | | | | [place] [address] | | | | + + + [...] EXTERNAL | | | | performed at [facility] | | LAB | | | | [address];[place], [place] | | | | | | [address] | | | | + + + [...] | | | | | [place] [address] | | | | + + + + + + | Non- | 2.96 (L)Comment: Testing | 3.70 - 5.10 | EXTERNAL | | | Red Blood | performed at [facility], [address] | [address]/uL | LAB | | | Cells | [address], | | | | | Counted | [place] [address] | | | | + + + + + + | Hemoglobin | 9.3 (L)Comment: Testing | 11.3 - 15.5 | EXTERNAL | | | | performed at [facility], [address] | g/dL | LAB | | | | [address], | | | | | | [place] [address] | | | | + + + + + + | Hematocrit, | 27.6 (L)Comment: Testing | 34.0 - 46.0 % | EXTERNAL | | | POC | performed at [facility], [address] | | LAB | | | | [address], | | | | | | [place] [address] | | | | + + + + + + | MCV | 93.4Comment: Testing | 80.0 - 100.0 fl | EXTERNAL | | | | performed at [facility], [address] | | LAB | | | | [address], | | | | | | [place] [address] | | | | + + + + + + | MCH | 31.3Comment: Testing | 27.0 - 34.0 pg | EXTERNAL | | | | performed at [facility], [address] | | LAB | | | | [address], | | | | | | [place] [address] | | | | + + + + + + | MCHC | 33.5Comment: Testing | 32.0 - 35.5 | EXTERNAL | | | | performed at [facility], [address] | g/dL | LAB | | | | [address], | | | | | | [place] [address] | | | | + + + + + + | RDW-CV | 57.8 (H)Comment: Testing | 37 - 53 fl | EXTERNAL | | | | performed at [facility], [address] | | LAB | | | | [address], | | | | | | [place] [address] | | | | + + + + + + | Platelet | 91 (L)Comment: Testing | 150 - 400 K/uL | EXTERNAL | | | Count | performed at [facility], [address] | | LAB | | | Plasma | [address], | | | | | | [place] [address] | | | | + + + + + + | MPV | 8.5Comment: Testing | fl | EXTERNAL | | | | performed at [facility], [address] | | LAB | | | | [address], | | | | | | [place] [address] | | | | + + + + + + | Differentia | AUTOMATEDComment: | | EXTERNAL | | | l Type | Testing performed at | | LAB | | | | [facility], [address] | | | | | | [place] | | | | | | [address] | | | | + + + + + + | % Segmented | 46.3Comment: Testing | % | EXTERNAL | | | | performed at [facility], [address] | | LAB | | | Neutrophils | [address], | | | | | | [place] [address] | | | | + + + + + + | % | 17.9Comment: Testing | % | EXTERNAL | | | Lymphocytes | performed at [facility], [address] | | LAB | | | | [address], | | | | | | [place], [place] [address] | | | | + + + + + + | % Monocytes | 25.9Comment: Testing | % | EXTERNAL | | | | performed at [facility], [address] | | LAB | | | | [address], | | | | | | [place], [place] [address] | | | | + + + + + + | % | 6.0Comment: Testing | % | EXTERNAL | | | Eosinophils | performed at [facility], [address] | | LAB | | | | [address], | | | | | | [place] [address] | | | | + + + + + + | % Basophils | 3.9Comment: Testing | % | EXTERNAL | | | | performed at [facility], [address] | | LAB | | | | [address], | | | | | | [place] [address] | | | | + + + + + + | Absolute | 1.5 (L)Comment: Testing | 1.9 - 7.4 K/uL | EXTERNAL | | | Segmented | performed at [facility], [address] | | LAB | | | Neutrophils | [address], | | | | | | [place] [address] | | | | + + + + + + | Absolute | 0.6 (L)Comment: Testing | 1.0 - 3.9 K/uL | EXTERNAL | | | Lymphocytes | performed at [facility], [address] | | LAB | | | | [address], | | | | | | [place] [address] | | | | + + + + + + | Absolute | 0.8Comment: Testing | 0 - 0.8 K/uL | EXTERNAL | | | Monocytes | performed at [facility], [address] | | LAB | | | | [address], | | | | | | [place] [address] | | | | + + + + + + | Absolute | 0.2Comment: Testing | 0 - 0.5 K/uL | EXTERNAL | | | Eosinophils | performed at [facility], [address] | | LAB | | | | [address], | | | | | | [place] [address] | | | | + + + + + + | Absolute | 0.1Comment: Testing | 0 - 0.1 K/uL | EXTERNAL | | | Basophils | performed at [facility], [address] | | LAB | | | | [address], | | | | | | [place] [address] | | | | + + + + + + | RBC | 1+Comment: ANISONORMAL | | EXTERNAL | | | Morphology | PLT MORPHTesting | | LAB | | | | performed at [facility], [address] | | | | | | [address], | | | | | | [place] [address] | | | | | | | [...] | | | | | [place] [address] | | | | + + + [...] [place] | | | | | | [address] | | | | + + + [...] | | | | | [place] [address] | | | | + + + + + + | K | 3.7Comment: Testing | 3.5 - 4.9 | EXTERNAL | | | | performed at [facility], [address] | mmol/L | LAB | | | | [address], | | | | | | [place] [address] | | | | + + + + + + | Cl | 105Comment: Testing | 99 - 109 mmol/L | EXTERNAL | | | | performed at [facility], [address] | | LAB | | | | [address], | | | | | | [place] [address] | | | | + + + + + + | CO2 | 25Comment: Testing | 23 - 32 mmol/L | EXTERNAL | | | | performed at [facility], [address] | | LAB | | | | [address], | | | | | | [place] [address] | | | | + + + + + + | Anion Gap | 7Comment: Testing | 5 - 20 mmol/L | EXTERNAL | | | | performed at [facility], [address] | | LAB | | | | [address], | | | | | | [place] [address] | | | | + + + + + + | Glucose, | 85Comment: Testing | 65 - 99 mg/dL | EXTERNAL | | | Fasting | performed at [facility], [address] | | LAB | | | | [address], | | | | | | [place] [address] | | | | + + + + + + | BUN | 8Comment: Testing | 8 - 25 mg/dL | EXTERNAL | | | | performed at [facility], [address] | | LAB | | | | [address], | | | | | | [place] [address] | | | | + + + + + + | Creatinine | 0.58Comment: Testing | 0.50 - 1.00 | EXTERNAL | | | | performed at [facility], [address] | mg/dL | LAB | | | | [address], | | | | | | [place] [address] | | | | + + + + + + | BUN/Creatin | 14Comment: Testing | | EXTERNAL | | | ine Ratio | performed at [facility], [address] | | LAB | | | | [address], | | | | | | [place] [address] | | | | + + + + + + | Calcium | 9.2Comment: Testing | 8.5 - 10.2 | EXTERNAL | | | | performed at [facility], [address] | mg/dL | LAB | | | | [address], | | | | | | [place] [address] | | | | + + + + + + | Protein, | 5.6 (L)Comment: Testing | 6.3 - 8.2 g/dL | EXTERNAL | | | Total | performed at [facility], [address] | | LAB | | | [address], | | | | | | [place] [address] | | | | + + + + + + | Albumin | 2.2 (L)Comment: Testing | 3.6 - 5.0 g/dL | EXTERNAL | | | | performed at [facility], [address] | | LAB | | | | [address], | | | | | | [place] [address] | | | | + + + + + + | Globulin | 3.4Comment: Testing | 1.3 - 4.9 g/dL | EXTERNAL | | | | performed at [facility], [address] | | LAB | | | | [address], | | | | | | [place] [address] | | | | + + + + + + | A/G Ratio | 0.6 (L)Comment: Testing | 1.0 - 2.4 | EXTERNAL | | | | performed at [facility], [address] | | LAB | | | | [address], | | | | | | [place] [address] | | | | + + + + + + | Bilirubin | 0.8Comment: Testing | 0.1 - 1.5 mg/dL | EXTERNAL | | | Total | performed at [facility], [address] | | LAB | | | | [address], | | | | | | [place], [place] [address] | | | | + + + + + + | ALP, | 119 (H)Comment: Testing | 35 - 115 U/L | EXTERNAL | | | External | performed at [facility], [address] | | LAB | | | | [address], | | | | | | [place], [place] [address] | | | | + + + + + + | AST | 36Comment: Testing | 10 - 45 U/L | EXTERNAL | | | | performed at [facility], [address] | | LAB | | | | [address], | | | | | | [place] [address] | | | | + + + + + + | ALT | 16Comment: Testing | 10 - 65 U/L | EXTERNAL | | | | performed at [facility], [address] | | LAB | | | | [address], | | | | | | [place] [address] | | | | + + + [...] [place], | | | | | | [place] [address] | | | | + + + [...] | | | | | performed at [facility] | | | | | | [address];[place] | | | | | | [address] | | | | + + + [...] | LAB | | | | [address], | | | | | | [place] [address] | | | | + + + [...] | | | | | | [place] [address] | | | | + + + [...] | | | | | [place] [address] | | | | + + + + + + | TIBC | 146 (L)Comment: Testing | 260 - 490 ug/dL | EXTERNAL | | | | performed at [facility], [address] | | LAB | | | | [address], | | | | | | [place] [address] | | | | + + + + + + | Iron | 15Comment: Testing | 15 - 50 % | EXTERNAL | | | Saturation | performed at [facility], [address] | | LAB | | | | [address], | | | | | | [place] [address] | | | | + + + [...] | | | | | [place] [address] | | | | + + + + + + | Non- | 2.90 (L)Comment: Testing | 3.70 - 5.10 | EXTERNAL | | | Red Blood | performed at [facility], [address] | M/uL | LAB | | | Cells | [address], | | | | | Counted | [place] [address] | | | | + + + + + + | Hemoglobin | 9.2 (L)Comment: Testing | 11.3 - 15.5 | EXTERNAL | | | | performed at [facility], [address] | g/dL | LAB | | | | [address], | | | | | | [place] [address] | | | | + + + + + + | Hematocrit, | 27.3 (L)Comment: Testing | 34.0 - 46.0 % | EXTERNAL | | | POC | performed at [facility], [address] | | LAB | | | | [address], | | | | | | [place] [address] | | | | + + + + + + | MCV | 94.2Comment: Testing | 80.0 - 100.0 fl | EXTERNAL | | | | performed at [facility], [address] | | LAB | | | | [address], | | | | | | [place] [address] | | | | + + + + + + | MCH | 31.6Comment: Testing | 27.0 - 34.0 pg | EXTERNAL | | | | performed at [facility], [address] | | LAB | | | | [address], | | | | | | [place] [address] | | | | + + + + + + | MCHC | 33.5Comment: Testing | 32.0 - 35.5 | EXTERNAL | | | | performed at [facility], [address] | g/dL | LAB | | | | [address], | | | | | | [place] [address] | | | | + + + + + + | RDW-CV | 56.0 (H)Comment: Testing | 37 - 53 fl | EXTERNAL | | | | performed at [facility], [address] | | LAB | | | | [address], | | | | | | [place] [address] | | | | + + + + + + | Platelet | 83 (L)Comment: Testing | 150 - 400 K/uL | EXTERNAL | | | Count | performed at [facility], [address] | | LAB | | | Plasma | [address], | | | | | | [place] [address] | | | | + + + + + + | MPV | 8.7Comment: Testing | fl | EXTERNAL | | | | performed at [facility], [address] | | LAB | | | | [address], | | | | | | [place] [address] | | | | + + + + + + | Differentia | MANUALComment: Testing | | EXTERNAL | | | l Type | performed at [facility], [address] | | LAB | | | | [address], | | | | | | [place] [address] | | | | + + + + + + | Segmented | 63Comment: Testing | % | EXTERNAL | | | Neutrophils | performed at [facility], [address] | | LAB | | | Manual | [address], | | | | | | [place] [address] | | | | + + + + + + | Lymphocytes | 9Comment: Testing | % | EXTERNAL | | | Manual | performed at [facility], [address] | | LAB | | | | [address], | | | | | | [place] [address] | | | | + + + + + + | Monocytes | 21Comment: Testing | % | EXTERNAL | | | Manual | performed at [facility], [address] | | LAB | | | | [address], | | | | | | [place] [address] | | | | + + + + + + | Eosinophils | 7Comment: Testing | % | EXTERNAL | | | Manual | performed at [facility], [address] | | LAB | | | | [address], | | | | | | [place] [address] | | | | + + + + + + | Absolute | 1.9Comment: Testing | 1.9 - 7.4 K/uL | EXTERNAL | | | Neutrophils | performed at [facility], [address] | | LAB | | | | [address], | | | | | | [place] [address] | | | | + + + + + + | Absolute | 0.3 (L)Comment: Testing | 1.0 - 3.9 K/uL | EXTERNAL | | | Lymphocytes | performed at [facility], [address] | | LAB | | | | [address], | | | | | | [place] [address] | | | | + + + + + + | Absolute | 0.7Comment: Testing | 0 - 0.8 K/uL | EXTERNAL | | | Monocytes | performed at [facility], [address] | | LAB | | | | [address], | | | | | | [place] [address] | | | | + + + + + + | Absolute | 0.2Comment: Testing | 0 - 0.5 K/uL | EXTERNAL | | | Eosinophils | performed at [facility], [address] | | LAB | | | | [address], | | | | | | [place] [address] | | | | + + + [...] [place] | | | | | | [address] | | | | + + + [...] | | LAB | | | | [facility], | | | | | | [place] [address] | | | | + + + [...] [place] | | | | | | [address] | | | | + + + [...] | | | | | [place] [address] | | | | + + + [...] | | | | | [place] [address] | | | | + + + + + + | K | 3.9Comment: Testing | 3.5 - 4.9 | EXTERNAL | | | | performed at [facility], [address] | mmol/L | LAB | | | | [address], | | | | | | [place] [address] | | | | + + + + + + | Cl | 107Comment: Testing | 99 - 109 mmol/L | EXTERNAL | | | | performed at [facility], [address] | | [place]ARE[place] | | | | [address], | | | | | | [place] [address] | | | | + + + + + + | CO2 | 23Comment: Testing | 23 - 32 mmol/L | EXTERNAL | | | | performed at [facility], [address] | | LAB | | | | [address], | | | | | | [place] [address] | | | | + + + + + + | Anion Gap | 7Comment: Testing | 5 - 20 mmol/L | EXTERNAL | | | | performed at [facility], [address] | | LAB | | | | [address], | | | | | | [place] [address] | | | | + + + + + + | Glucose, | 85Comment: Testing | 65 - 99 mg/dL | EXTERNAL | | | Fasting | performed at [facility], [address] | | LAB | | | | [address], | | | | | | [place] [address] | | | | + + + + + + | BUN | 6 (L)Comment: Testing | 8 - 25 mg/dL | EXTERNAL | | | | performed at [facility], [address] | | LAB | | | | [address], | | | | | | [place] [address] | | | | + + + + + + | Creatinine | 0.52Comment: Testing | 0.50 - 1.00 | EXTERNAL | | | | performed at [facility], [address] | mg/dL | LAB | | | | [address], | | | | | | [place] [address] | | | | + + + + + + | BUN/Creatin | 12Comment: Testing | | EXTERNAL | | | ine Ratio | performed at [facility], [address] | | LAB | | | | [address], | | | | | | [place] [address] | | | | + + + + + + | Calcium | 8.8Comment: Testing | 8.5 - 10.2 | EXTERNAL | | | | performed at [facility], [address] | mg/dL | LAB | | | | [address], | | | | | | [place] [address] | | | | + + + + + + | Protein, | 5.4 (L)Comment: Testing | 6.3 - 8.2 g/dL | EXTERNAL | | | Total | performed at [facility], [address] | | LAB | | | | [address], | | | | | | [place] [address] | | | | + + + + + + | Albumin | 2.1 (L)Comment: Testing | 3.6 - 5.0 g/dL | EXTERNAL | | | | performed at [facility], [address] | | LAB | | | | [address], | | | | | | [place] [address] | | | | + + + + + + | Globulin | 3.3Comment: Testing | 1.3 - 4.9 g/dL | EXTERNAL | | | | performed at [facility], [address] | | LAB | | | | [address], | | | | | | [place] [address] | | | | + + + + + + | A/G Ratio | 0.6 (L)Comment: Testing | 1.0 - 2.4 | EXTERNAL | | | | performed at [facility], [address] | | LAB | | | | [address], | | | | | | [place] [address] | | | | + + + + + + | Bilirubin | 0.7Comment: Testing | 0.1 - 1.5 mg/dL | EXTERNAL | | | Total | performed at [facility], [address] | | LAB | | | | [address], | | | | | | [place] [address] | | | | + + + + + + | ALP, | 109Comment: Testing | 35 - 115 U/L | EXTERNAL | | | External | performed at [facility], [address] | | LAB | | | | [address], | | | | | | [place] [address] | | | | + + + + + + | AST | 40Comment: Testing | 10 - 45 U/L | EXTERNAL | | | | performed at [facility], [address] | | LAB | | | | [address], | | | | | | [place] [address] | | | | + + + + + + | ALT | 15Comment: Testing | 10 - 65 U/L | EXTERNAL | | | | performed at [facility], [address] | | LAB | | | | [address], | | | | | | [place] [address] | | | | + + + [...] | | | | | | [place] [address] | | | | + + + [...] EXTERNAL | | | | performed at [facility] | mmol/L | LAB | | | | [address];[place], [place] | | | | | | [address] | | | | + + + [...] EXTERNAL | | | | performed at [facility];[address] | | LAB | | | | [address];[place] | | | | | | [address] | | | | + + + [...] 17. The mitral valve is normal. 18. Lesd-kj-sobheyeo | | | mitral regurgitation is present. [...] | | | valve is normal. 18. Ruur-dd-akdcsjtu mitral regurgitation is | | | present. [...] is normal. | | | Mitral Valve: Sbqk-md-ztsridvv mitral regurgitation is present Mitral | | [...] 94.56 ml D-E Excursion: 1.83 cm E-F Canadian: | | | 0.07 m/s EPSS: 1.09 [...] A Juan A: 0.65 m/s TV Dec Canadian: | | | 4.00 m/s2 TV Dec Time: 240.34 ms TV E Juan A: 0.96 m/s TV | | | E/A Ratio: 1.47 Construction Teacher: DERIK Authenticated by: Jared Vasquez | | [...] | regurgitation.17. The mitral valve is normal.18. Eafo-wz-ocbczemh mitral regurgitation | | is present.19. , [...] valve was not well visualized.26. Trace pulmonic qszoekmnscczr77. There is no | | pericardial effusion.28. [...] Valve: The mitral valve is normal.Mitral Valve: Srvd-py-jxrndarc mitral regurgitation is | | presentMitral Valve: [...] (A-L): 62.26 ml/m2LAAs A2C: | | 27.87 pv9TRTAP A-L A2C: 118.11 mlLALs A2C: 5.58 cmLAAs A4C: 26.30 ll8RIUKQ A-L | | A4C: 99.33 mlLALs A4C: [...] 94.56 mlD-E Excursion: | | 1.83 cmE-F Canadian: 0.07 m/sEPSS: 1.09 cmHR: 85.87 BPMAV maxP.78 mmHgAV | | meanP.34 mmHgAV Vmax: 1.39 m/Uvaldo Vmean: 0.99 m/Uvaldo VTI: 29.75 cmAVA Vmax: | | 2.68 cm2AVA (VTI): 2.83 ct0BTHP Dopp: 3.83 l/ixtx1ROQV Dopp: 6.86 l/minHR: 81.35 | | BPMLVOT [...] m/sTV A Juan A: 0.65 m/sTV Dec Canadian: 4.00 m/s2TV Dec Time: | | 240.34 msTV E Juan A: 0.96 m/sTV E/A Ratio: 1.47 Construction Teacher: Earlted by: Jared | | Pedro Gilbert [...] | | The mitral valve is normal.18. Msil-en-ghpfdmkk mitral regurgitation is present.19. , | | [...] not | | well visualized.26. Trace pulmonic ufusvhobbfcgr44. There is no pericardial effusion.28. | | [...] | |D-E Excursion: 1.83 cm | |E-F Canadian: 0.07 m/s | |EPSS: 1.09 cm | [...] Juan A: 0.65 m/s | |TV Dec Canadian: 4.00 m/s2 | |TV Dec Time: 240.34 ms | |TV E Juan A: 0.96 m/s | |TV E/A Ratio: 1.47 | | | |Construction Teacher: DERIK | |Authenticated by: Jared Gilbert MD [...] The mitral valve is normal. | |18. Bnvs-bn-asvklsee mitral regurgitation is present. | |19. , [...] | | | | | | [place] [address] | | | | + + + + + + | Non- | 2.69 (L)Comment: Testing | 3.70 - 5.10 | EXTERNAL | | | Red Blood | performed at [facility], [address] | [address]L | LAB | | | Cells | [address], | | | | | Counted | [place] [address] | | | | + + + + + + | Hemoglobin | 8.3 (L)Comment: Testing | 11.3 - 15.5 | EXTERNAL | | | | performed at [facility], [address] | g/dL | LAB | | | | [address], | | | | | | [place] [address] | | | | + + + + + + | Hematocrit, | 25.4 (L)Comment: Testing | 34.0 - 46.0 % | EXTERNAL | | | POC | performed at , [address] | LAB | | | | [address], | | | | | | [place] [address] | | | | + + + + + + | MCV | 94.4Comment: Testing | 80.0 - 100.0 fl | EXTERNAL | | | | performed at [facility], [address] | | LAB | | | | [address], | | | | | | [place] [address] | | | | + + + + + + | MCH | 30.9Comment: Testing | 27.0 - 34.0 pg | EXTERNAL | | | | performed at [facility], [address] | | LAB | | | | [address], | | | | | | [place] [address] | | | | + + + + + + | MCHC | 32.7Comment: Testing | 32.0 - 35.5 | EXTERNAL | | | | performed at [facility], [address] | g/dL | LAB | | | | [address], | | | | | | [place] [address] | | | | + + + + + + | RDW-CV | 57.3 (H)Comment: Testing | 37 - 53 fl | EXTERNAL | | | | performed at [facility], [address] | | LAB | | | | [address], | | | | | | [place] [address] | | | | + + + + + + | Platelet | 72 (L)Comment: Testing | 150 - 400 K/uL | EXTERNAL | | | Count | performed at [facility], [address] | | LAB | | | Plasma | [address], | | | | | | [place] [address] | | | | + + + + + + | MPV | 8.5Comment: Testing | fl | EXTERNAL | | | | performed at [facility], [address] | | LAB | | | | [address], | | | | | | [place] [address] | | | | + + + + + + | Differentia | MANUALComment: Testing | | EXTERNAL | | | l Type | performed at [facility], [address] | | LAB | | | | [address], | | | | | | [place] [address] | | | | + + + + + + | Segmented | 55Comment: Testing | % | EXTERNAL | | | Neutrophils | performed at [facility], [address] | | LAB | | | Manual | [address], | | | | | | [place] [address] | | | | + + + + + + | % Bands | 1Comment: Testing | % | EXTERNAL | | | | performed at [facility], [address] | | LAB | | | | [address], | | | | | | [place] [address] | | | | + + + + + + | Lymphocytes | 22Comment: Testing | % | EXTERNAL | | | Manual | performed at [facility], [address] | | LAB | | | | [address], | | | | | | [place], [place] [address] | | | | + + + + + + | Monocytes | 17Comment: Testing | % | EXTERNAL | | | Manual | performed at [facility], [address] | | LAB | | | | [address], | | | | | | [place] [address] | | | | + + + + + + | Eosinophils | 5Comment: Testing | % | EXTERNAL | | | Manual | performed at [facility], [address] | | LAB | | | | [address], | | | | | | [place] [address] | | | | + + + + + + | Absolute | 2.1Comment: Testing | 1.9 - 7.4 K/uL | EXTERNAL | | | Neutrophils | performed at [facility], [address] | | LAB | | | | [address], | | | | | | [place] [address] | | | | + + + + + + | Bands | 0.0Comment: Testing | 0 - 0.2 K/uL | EXTERNAL | | | Manual | performed at [facility], [address] | | LAB | | | | [address], | | | | | | [place] [address] | | | | + + + + + + | Absolute | 0.9 (L)Comment: Testing | 1.0 - 3.9 K/uL | EXTERNAL | | | Lymphocytes | performed at [facility], [address] | | LAB | | | | [address], | | | | | | [place] [address] | | | | + + + + + + | Absolute | 0.7Comment: Testing | 0 - 0.8 K/uL | EXTERNAL | | | Monocytes | performed at [facility], [address] | | LAB | | | [address], | | | | | | [place] [address] | | | | + + + + + + | Absolute | 0.2Comment: Testing | 0 - 0.5 K/uL | EXTERNAL | | | Eosinophils | performed at [facility], [address] | | LAB | | | | [address], | | | | | | [place] [address] | | | | + + + + + + | Platelet | DECREASEDComment: | | EXTERNAL | | | Estimate | Testing performed at | | LAB | | | | [facility], [address] [facility] | | | | | | [place] | | | | | | [address] | | | | + + + + + + | RBC | NORMAL RBC MORPHComment: | | EXTERNAL | | | Morphology | NORMAL PLT MORPHTesting | | LAB | | | | performed at [facility], [address] | | | | | [address], | | | | | | [place] [address] | | | | + + + [...] | | | | | | [place] [address] | | | | + + + [...] | | | | | [place] [address] | | | | + + + [...] | | | | | [place] [address] | | | | + + + + + + | K | 3.2 (L)Comment: Testing | 3.5 - 4.9 | EXTERNAL | | | | performed at [facility], [address] | mmol/L | LAB | | | | [address], | | | | | | [place] [address] | | | | + + + + + + | Cl | 107Comment: Testing | 99 - 109 mmol/L | EXTERNAL | | | | performed at [facility], [address] | | LAB | | | [address], | | | | | | [place] [address] | | | | + + + [...] | | | | | [place] [address] | | | | + + + + + + | Glucose, | 113 (H)Comment: Testing | 65 - 99 mg/dL | EXTERNAL | | | Fasting | performed at [facility], [address] | | LAB | | | | [address], | | | | | | [place] [address] | | | | + + + + + + | BUN | 6 (L)Comment: Testing | 8 - 25 mg/dL | EXTERNAL | | | | performed at [facility], [address] | | LAB | | | | [address], | | | | | | [place] [address] | | | | + + + + + + | Creatinine | 0.59Comment: Testing | 0.50 - 1.00 | EXTERNAL | | | | performed at [facility], [address] | mg/dL | LAB | | | | [address], | | | | | | [place] [address] | | | | + + + + + + | BUN/Creatin | 10Comment: Testing | | EXTERNAL | | | ine Ratio | performed at [facility], [address] | | LAB | | | | [address], | | | | | | [place] [address] | | | | + + + + + + | Calcium | 8.0 (L)Comment: Testing | 8.5 - 10.2 | EXTERNAL | | | | performed at [facility], [address] | mg/dL | LAB | | | | [address], | | | | | | [place] [address] | | | | + + + + + + | Protein, | 5.3 (L)Comment: Testing | 6.3 - 8.2 g/dL | EXTERNAL | | | Total | performed at [facility], [address] | | LAB | | | | [address], | | | | | | [place] [address] | | | | + + + + + + | Albumin | 2.2 (L)Comment: Testing | 3.6 - 5.0 g/dL | EXTERNAL | | | | performed at [facility], [address] | | LAB | | | | [address], | | | | | | [place] [address] | | | | + + + + + + | Globulin | 3.1Comment: Testing | 1.3 - 4.9 g/dL | EXTERNAL | | | | performed at [facility], [address] | | LAB | | | | [address], | | | | | | [place] [address] | | | | + + + + + + | A/G Ratio | 0.7 (L)Comment: Testing | 1.0 - 2.4 | EXTERNAL | | | | performed at [facility], [address] | | LAB | | | | [address], | | | | | | [place] [address] | | | | + + + + + + | Bilirubin | 1.0Comment: Testing | 0.1 - 1.5 mg/dL | EXTERNAL | | | Total | performed at [facility], [address] | | LAB | | | | [address], | | | | | | [place] [address] | | | | + + + + + + | ALP, | 98Comment: Testing | 35 - 115 U/L | EXTERNAL | | | External | performed at [facility], [address] | | LAB | | | | [address], | | | | | | [place] [address] | | | | + + + + + + | AST | 41Comment: Testing | 10 - 45 U/L | EXTERNAL | | | | performed at [facility], [address] | | LAB | | | | [address], | | | | | | [place] [address] | | | | + + + + + + | ALT | 14Comment: Testing | 10 - 65 U/L | EXTERNAL | | | | performed at [facility], [address] | | LAB | | | | [address], | | | | | | [place] [address] | | | | + + + [...] [address], | | | | | | [place] [address] | | | | + + + [...] | EXTERNAL LAB | | performed at [facility] [place] [address];[place] [address] 027 NAP1 BI | | | 027 NAP1 BI PRESUMPTIVE NEGATIVE | | | Detection of 027 NAP1 BI strains of C. difficile is presumptive and | | | for epidemiological purposes and not intended to guide or monitor | | | treatment for C. difficile infections. Testing performed at [facility] | | | [facility];[place] [address] | | + + + + +---------+ [...] EXTERNAL | | | | performed at [facility];[address] | mOsm/kg | LAB | | | | [address];[place] | | | | | | [address] | | | | + + + [...] | LAB | | | Random | [address], | | | | | | [place] [address] | | | | + + + [...] EXTERNAL | | | | performed at [facility];[address] | | LAB | | | | [address];[place] | | | | | | [address] | | | | + + + + + + | Non- | 3.04 (L)Comment: Testing | 3.70 - 5.10 | EXTERNAL | | | Red Blood | performed at [facility];[address] | M/uL | LAB | | | Cells | [address];[place] | | | | | Counted | [address] | | | | + + + + + + | Hemoglobin | 9.3 (L)Comment: Testing | 11.3 - 15.5 | EXTERNAL | | | | performed at [facility];[address] | g/dL | LAB | | | | [address];[place] | | | | | | [address] | | | | + + + + + + | Hematocrit, | 27.9 (L)Comment: Testing | 34.0 - 46.0 % | EXTERNAL | | | POC | performed at [facility];[address] | | LAB | | | | [address];[place] | | | | | | [address] | | | | + + + + + + | MCV | 91.8Comment: Testing | 80.0 - 100.0 fl | EXTERNAL | | | | performed at [facility];[address] | | LAB | | | | [address];[place] | | | | | | [address] | | | | + + + + + + | MCH | 30.5Comment: Testing | 27.0 - 34.0 pg | EXTERNAL | | | | performed at [facility];[address] | | LAB | | | | [address];[place] | | | | | | [address] | | | | + + + + + + | MCHC | 33.3Comment: Testing | 32.0 - 35.5 | EXTERNAL | | | | performed at [facility];[address] | g/dL | LAB | | | | [address];[place] | | | | | | [address] | | | | + + + + + + | RDW-CV | 55.1 (H)Comment: Testing | 37 - 53 fl | EXTERNAL | | | | performed at [facility];[address] | | LAB | | | | [address];[place] | | | | | | [address] | | | | + + + + + + | Platelet | 70 (L)Comment: Testing | 150 - 400 K/uL | EXTERNAL | | | Count | performed at [facility];[address] | | LAB | | | Plasma | [address];[place] | | | | | | [address] | | | | + + + + + + | MPV | 8.5Comment: Testing | fl | EXTERNAL | | | | performed at [facility];[address] | | LAB | | | | [address];[place] | | | | | | [address] | | | | + + + + + + | Differentia | MANUALComment: Testing | | EXTERNAL | | | l Type | performed at [facility];[address] | | LAB | | | | [address];[place] | | | | | | [address] | | | | + + + + + + | Segmented | 70Comment: Testing | % | EXTERNAL | | | Neutrophils | performed at [facility];[address] | | LAB | | | Manual | [address];[place] | | | | | | [address] | | | | + + + + + + | % Bands | 5Comment: Testing | % | EXTERNAL | | | | performed at [facility];[address] | | LAB | | | | [address];[place] | | | | | | [address] | | | | + + + + + + | Lymphocytes | 10Comment: Testing | % | EXTERNAL | | | Manual | performed at [facility];[address] | | LAB | | | | [address];[place] | | | | | | [address] | | | | + + + + + + | Monocytes | 11Comment: Testing | % | EXTERNAL | | | Manual | performed at [facility];[address] | | LAB | | | | [address];[place] | | | | | | [address] | | | | + + + + + + | Eosinophils | 4Comment: Testing | % | EXTERNAL | | | Manual | performed at [facility];[address] | | LAB | | | | [address];[place] | | | | | | [address] | | | | + + + + + + | Absolute | 4.2Comment: Testing | 1.9 - 7.4 K/uL | EXTERNAL | | | Neutrophils | performed at [facility];[address] | | LAB | | | | [address];[place] | | | | | | [address] | | | | + + + + + + | Bands | 0.3 (H)Comment: Testing | 0 - 0.2 K/uL | EXTERNAL | | | Manual | performed at [facility];[address] | | LAB | | | | [address];[place] | | | | | | [address] | | | | + + + + + + | Absolute | 0.6 (L)Comment: Testing | 1.0 - 3.9 K/uL | EXTERNAL | | | Lymphocytes | performed at [facility];[address] | | LAB | | | | [address];[place] | | | | | | [address] | | | | + + + + + + | Absolute | 0.7Comment: Testing | 0 - 0.8 K/uL | EXTERNAL | | | Monocytes | performed at [facility];[address] | | LAB | | | | [address];[place] | | | | | | [address] | | | | + + + + + + | Absolute | 0.2Comment: Testing | 0 - 0.5 K/uL | EXTERNAL | | | Eosinophils | performed at [facility];[address] | | LAB | | | | [address];[place] | | | | | | [address] | | | | + + + + + + | Platelet | DECREASEDComment: | | EXTERNAL | | | Estimate | Testing performed at | | LAB | | | | [facility];[address];[place] [address] | | | | + + + + + + | RBC | NORMAL RBC MORPHComment: | | EXTERNAL | | | Morphology | Testing performed at | | LAB | | | | [facility];[address];[place] [address] | | | | + + + [...] | | | | | [place] [address] | | | | + + + [...] | | | Serum | performed at [facility];[address] | mOsm/kg | LAB | | | | [address];[place], [place] | | | | | | [address] | | | | + + + [...] | | | | | [place] [address] | | | | + + + [...] EXTERNAL | | | | performed at [facility];[address] | | LAB | | | | [address];[place] | | | | | | [address] | | | | + + + [...] | | | | | [place] [address] | | | | + + + + + + | K | 3.4 (L)Comment: Testing | 3.5 - 4.9 | EXTERNAL | | | | performed at [facility], [address] | mmol/L | LAB | | | [address], | | | | | | [place] [address] | | | | + + + + + + | Cl | 105Comment: Testing | 99 - 109 mmol/L | EXTERNAL | | | | performed at [facility], [address] | | LAB | | | | [address], | | | | | | [place] [address] | | | | + + + + + + | CO2 | 22 (L)Comment: Testing | 23 - 32 mmol/L | EXTERNAL | | | | performed at [facility], [address] | | LAB | | | | [address], | | | | | | [place] [address] | | | | + + + + + + | Anion Gap | 10Comment: Testing | 5 - 20 mmol/L | EXTERNAL | | | | performed at [facility], [address] | | LAB | | | | [address], | | | | | | [place] [address] | | | | + + + + + + | Glucose, | 95Comment: Testing | 65 - 99 mg/dL | EXTERNAL | | | Fasting | performed at [facility], [address] | | LAB | | | | [address], | | | | | | [place] [address] | | | | + + + + + + | BUN | 5 (L)Comment: Testing | 8 - 25 mg/dL | EXTERNAL | | | | performed at [facility], [address] | | LAB | | | | [address], | | | | | | [place] [address] | | | | + + + + + + | Creatinine | 0.57Comment: Testing | 0.50 - 1.00 | EXTERNAL | | | | performed at [facility], [address] | mg/dL | LAB | | | | [address], | | | | | | [place] [address] | | | | + + + + + + | BUN/Creatin | 9Comment: Testing | | EXTERNAL | | | ine Ratio | performed at [facility], [address] | | LAB | | | | [address], | | | | | | [place] [address] | | | | + + + + + + | Calcium | 8.0 (L)Comment: Testing | 8.5 - 10.2 | EXTERNAL | | | | performed at [facility], [address] | mg/dL | LAB | | | | [address], | | | | | | [place] [address] | | | | + + + + + + | Protein, | 5.6 (L)Comment: Testing | 6.3 - 8.2 g/dL | EXTERNAL | | | Total | performed at [facility], [address] | | LAB | | | | [address], | | | | | | [place] [address] | | | | + + + + + + | Albumin | 2.0 (L)Comment: Testing | 3.6 - 5.0 g/dL | EXTERNAL | | | | performed at [facility], [address] | | LAB | | | | [address], | | | | | | [place] [address] | | | | + + + + + + | Globulin | 3.6Comment: Testing | 1.3 - 4.9 g/dL | EXTERNAL | | | | performed at [facility], [address] | | LAB | | | | [address], | | | | | | [place] [address] | | | | + + + + + + | A/G Ratio | 0.6 (L)Comment: Testing | 1.0 - 2.4 | EXTERNAL | | | | performed at [facility], [address] | | LAB | | | | [address], | | | | | | [place], [place] [address] | | | | + + + + + + | Bilirubin | 1.3Comment: Testing | 0.1 - 1.5 mg/dL | EXTERNAL | | | Total | performed at [facility], [address] | | LAB | | | | [address], | | | | | | [place] [address] | | | | + + + + + + | ALP, | 107Comment: Testing | 35 - 115 U/L | EXTERNAL | | | External | performed at [facility], [address] | | LAB | | | | [address], | | | | | | [place] [address] | | | | + + + + + + | AST | 62 (H)Comment: Testing | 10 - 45 U/L | EXTERNAL | | | | performed at [facility], [address] | | LAB | | | | [address], | | | | | | [place] [address] | | | | + + + + + + | ALT | 19Comment: Testing | 10 - 65 U/L | EXTERNAL | | | | performed at [facility], [address] | | LAB | | | | [address], | | | | | | [place] [address] | | | | + + + [...] [address] | | | | | | [address], | | | | | | [place] [address] | | | | + + + [...] EXTERNAL | | | | [place] [facility] [place] | | LAB | | | | [address];[place] | | | | | | [address] | | | | + + + [...] EXTERNAL | | | | performed at [facility] [place] | | LAB | | | [address];[place], [place] | | | | | | [address] | | | | + + + [...] | | | | | [place] [address] | | | | + + + + + + | Non- | 3.34 (L)Comment: Testing | 3.70 - 5.10 | EXTERNAL | | | Red Blood | performed at [facility], [address] | M/uL | LAB | | | Cells | [address], | | | | | Counted | [place] [address] | | | | + + + + + + | Hemoglobin | 10.4 (L)Comment: Testing | 11.3 - 15.5 | EXTERNAL | | | | performed at [facility], [address] | g/dL | LAB | | | | [address], | | | | | | [place] [address] | | | | + + + + + + | Hematocrit, | 31.3 (L)Comment: Testing | 34.0 - 46.0 % | EXTERNAL | | | POC | performed at [facility], [address] | | LAB | | | | [address], | | | | | | [place] [address] | | | | + + + + + + | MCV | 93.7Comment: Testing | 80.0 - 100.0 fl | EXTERNAL | | | | performed at [facility], [address] | | LAB | | | | [address], | | | | | | [place] [address] | | | | + + + + + + | MCH | 31.1Comment: Testing | 27.0 - 34.0 pg | EXTERNAL | | | | performed at [facility], [address] | | LAB | | | | [address], | | | | | | [place] [address] | | | | + + + + + + | MCHC | 33.2Comment: Testing | 32.0 - 35.5 | EXTERNAL | | | | performed at [facility], [address] | g/dL | LAB | | | | [address], | | | | | | [place] [address] | | | | + + + + + + | RDW-CV | 53.4 (H)Comment: Testing | 37 - 53 fl | EXTERNAL | | | | performed at [facility], [address] | | LAB | | | | [address], | | | | | | [place] [address] | | | | + + + + + + | Platelet | 67 (L)Comment: Testing | 150 - 400 K/uL | EXTERNAL | | | Count | performed at [facility], [address] | | LAB | | | Plasma | [address], | | | | | | [place] [address] | | | | + + + + + + | MPV | 8.5Comment: Testing | fl | EXTERNAL | | | | performed at [facility], [address] | | LAB | | | | [address], | | | | | | [place] [address] | | | | + + + + + + | Differentia | AUTOMATEDComment: | | EXTERNAL | | | l Type | Testing performed at | | LAB | | | | [facility], [address] | | | | | | [place] | | | | | | [address] | | | | + + + + + + | % Segmented | 70.1Comment: Testing | % | EXTERNAL | | | | performed at [facility], [address] | | LAB | | | Neutrophils | [address], | | | | | | [place] [address] | | | | + + + + + + | % | 9.7Comment: Testing | % | EXTERNAL | | | Lymphocytes | performed at [facility], [address] | | LAB | | | | [address], | | | | | | [place] [address] | | | | + + + + + + | % Monocytes | 16.7Comment: Testing | % | EXTERNAL | | | | performed at [facility], [address] | | LAB | | | | [address], | | | | | | [place] [address] | | | | + + + + + + | % | 2.8Comment: Testing | % | EXTERNAL | | | Eosinophils | performed at [facility], [address] | | LAB | | | | [address], | | | | | | [place] [address] | | | | + + + + + + | % Basophils | 0.7Comment: Testing | % | EXTERNAL | | | | performed at [facility], [address] | | LAB | | | | [address], | | | | | | [place] [address] | | | | + + + + + + | Absolute | 3.3Comment: Testing | 1.9 - 7.4 K/uL | EXTERNAL | | | Segmented | performed at [facility], [address] | | LAB | | | Neutrophils | [address], | | | | | | [place] [address] | | | | + + + + + + | Absolute | 0.5 (L)Comment: Testing | 1.0 - 3.9 K/uL | EXTERNAL | | | Lymphocytes | performed at [facility], [address] | | LAB | | | | [address], | | | | | | [place] [address] | | | | + + + + + + | Absolute | 0.8Comment: Testing | 0 - 0.8 K/uL | EXTERNAL | | | Monocytes | performed at [facility], [address] | | LAB | | | | [address], | | | | | | [place] [address] | | | | + + + + + + | Absolute | 0.1Comment: Testing | 0 - 0.5 K/uL | EXTERNAL | | | Eosinophils | performed at [facility], [address] | | LAB | | | | [address], | | | | | | [place] [address] | | | | + + + + + + | Absolute | 0.0Comment: Testing | 0 - 0.1 K/uL | EXTERNAL | | | Basophils | performed at [facility], [address] | | LAB | | | | [address], | | | | | | [place] [address] | | | | + + + [...] | | | | | [place] [address] | | | | + + + [...] | | | | | [place] [address] | | | | + + + [...] EXTERNAL | | | | performed at [facility] | | LAB | | | | [address];[place] | | | | | | [address] | | | | + + + [...] | | | | | [place] [address] | | | | + + + + + + | K | 3.9Comment: Testing | 3.5 - 4.9 | EXTERNAL | | | | performed at [facility], [address] | mmol/L | LAB | | | | [address], | | | | | | [place] [address] | | | | + + + + + + | Cl | 103Comment: Testing | 99 - 109 mmol/L | EXTERNAL | | | | performed at [facility], [address] | | LAB | | | | [address], | | | | | | [place] [address] | | | | + + + + + + | CO2 | 22 (L)Comment: Testing | 23 - 32 mmol/L | EXTERNAL | | | | performed at [facility], [address] | | LAB | | | | [address], | | | | | | [place] [address] | | | | + + + + + + | Anion Gap | 8Comment: Testing | 5 - 20 mmol/L | EXTERNAL | | | | performed at [facility], [address] | | LAB | | | | [address], | | | | | | [place] [address] | | | | + + + + + + | Glucose, | 98Comment: Testing | 65 - 99 mg/dL | EXTERNAL | | | Fasting | performed at [facility], [address] | | LAB | | | | [address], | | | | | | [place], [place] [address] | | | | + + + + + + | BUN | 5 (L)Comment: Testing | 8 - 25 mg/dL | EXTERNAL | | | | performed at [facility], [address] | | LAB | | | | [address], | | | | | | [place] [address] | | | | + + + + + + | Creatinine | 0.51Comment: Testing | 0.50 - 1.00 | EXTERNAL | | | | performed at [facility], [address] | mg/dL | LAB | | | | [address], | | | | | | [place] [address] | | | | + + + + + + | BUN/Creatin | 10Comment: Testing | | EXTERNAL | | | ine Ratio | performed at [facility], [address] | | LAB | | | | [facility], | | | | | | [place] [address] | | | | + + + + + + | Calcium | 7.9 (L)Comment: Testing | 8.5 - 10.2 | EXTERNAL | | | | performed at [facility], [address] | mg/dL | LAB | | | | [address], | | | | | | [place] [address] | | | | + + + [...] | | | | | [place] [address] | | | | + + + [...] EXTERNAL | | | | performed at [facility];[address] | mmol/L | LAB | | | | [address];[place] | | | | | | [address] | | | | + + + [...] EXTERNAL | | | | performed at [facility] | | LAB | | | | [address] [facility];[place], [place] | | | | | | [address] | | | | + + + [...] EXTERNAL | | | | performed at [facility];[address] | | LAB | | | | [address];[place] | | | | | | [address] | | | | + + + + + + | Non- | 2.89 (L)Comment: Testing | 3.70 - 5.10 | EXTERNAL | | | Red Blood | performed at [facility];[address] | M/uL | LAB | | | Cells | [address];[place] | | | | | Counted | [address] | | | | + + + + + + | Hemoglobin | 8.9 (L)Comment: Testing | 11.3 - 15.5 | EXTERNAL | | | | performed at [facility];[address] | g/dL | LAB | | | | [address];[place] | | | | | | [address] | | | | + + + + + + | Hematocrit, | 26.3 (L)Comment: Testing | 34.0 - 46.0 % | EXTERNAL | | | POC | performed at [facility];[address] | | LAB | | | | [address];[place] | | | | | | [address] | | | | + + + + + + | MCV | 90.9Comment: Testing | 80.0 - 100.0 fl | EXTERNAL | | | | performed at [facility];[address] | | LAB | | | | [address];[place] | | | | | | [address] | | | | + + + + + + | MCH | 30.7Comment: Testing | 27.0 - 34.0 pg | EXTERNAL | | | | performed at [facility];[address] | | LAB | | | | [address];[place] | | | | | | [address] | | | | + + + + + + | MCHC | 33.8Comment: Testing | 32.0 - 35.5 | EXTERNAL | | | | performed at [facility];[address] | g/dL | LAB | | | | [address];[place] | | | | | | [address] | | | | + + + + + + | RDW-CV | 52.5Comment: Testing | 37 - 53 fl | EXTERNAL | | | | performed at [facility];[address] | | LAB | | | | [address];[place] | | | | | | [address] | | | | + + + + + + | Platelet | 49 (LL)Comment: PLT | 150 - 400 K/uL | EXTERNAL | | | Count | PHONED TO FREDDY Chen | | LAB | | | Plasma | AT 0805 BY [facility] BACK | | | | | | RESULTS VERIFIEDTesting | | | | | | performed at [facility];[address] | | | | | | [address];[place] | | | | | | [address] | | | | + + + + + + | MPV | 8.3Comment: Testing | fl | EXTERNAL | | | | performed at [facility];[address] | | LAB | | | | [address];[place] | | | | | | [address] | | | | + + + + + + | Differentia | AUTOMATEDComment: | | EXTERNAL | | | l Type | Testing performed at | | LAB | | | | [facility];[address] | | [address];[place] [address] | | | | + + + + + + | % Segmented | 59.0Comment: Testing | % | EXTERNAL | | | | performed at [facility];[address] | | LAB | | | Neutrophils | [address];[place] | | | | | | [address] | | | | + + + + + + | % | 16.7Comment: Testing | % | EXTERNAL | | | Lymphocytes | performed at [facility];[address] | | LAB | | | | [address];[place] | | | | | | [address] | | | | + + + + + + | % Monocytes | 21.8Comment: Testing | % | EXTERNAL | | | | performed at [facility];[address] | | LAB | | | | [address];[place] | | | | | | [address] | | | | + + + + + + | % | 1.4Comment: Testing | % | EXTERNAL | | | Eosinophils | performed at [facility];[address] | | LAB | | | | [address];[place] | | | | | | [address] | | | | + + + + + + | % Basophils | 1.1Comment: Testing | % | EXTERNAL | | | | performed at [facility];[address] | | LAB | | | | [address];[place] | | | | | | [address] | | | | + + + + + + | Absolute | 2.2Comment: Testing | 1.9 - 7.4 K/uL | EXTERNAL | | | Segmented | performed at [facility];[address] | | LAB | | | Neutrophils | [address];[place] | | | | | | [address] | | | | + + + + + + | Absolute | 0.6 (L)Comment: Testing | 1.0 - 3.9 K/uL | EXTERNAL | | | Lymphocytes | performed at [facility];[address] | | LAB | | | | [address];[place] | | | | | | [address] | | | | + + + + + + | Absolute | 0.8Comment: Testing | 0 - 0.8 K/uL | EXTERNAL | | | Monocytes | performed at [facility];[address] | | LAB | | | | [address];[place] | | | | | | [address] | | | | + + + + + + | Absolute | 0.1Comment: Testing | 0 - 0.5 K/uL | EXTERNAL | | | Eosinophils | performed at [facility];[address] | | LAB | | | | [address];[place] | | | | | | [address] | | | | + + + + + + | Absolute | 0.0Comment: Testing | 0 - 0.1 K/uL | EXTERNAL | | | Basophils | performed at [facility];[address] | | LAB | | | | [address];[place], [place] | | | | | | [address] | | | | + + + [...] EXTERNAL | | | | performed at [facility];[address] | uIU/mL | LAB | | | | [address];[place], [place] | | | | | | [address] | | | | + + + [...] EXTERNAL | | | | performed at [facility];[address] | | LAB | | | | [address];[place], [place] | | | | | | [address] | | | | + + + [...] EXTERNAL | | | | performed at [facility];[address] | | LAB | | | | [address] [facility];[place] | | | | | | [address] | | | | + + + [...] LAB | | | | performed at [facility];[address] | | | | | | [address];[place] | | | | | | [address] | | | | + + + [...] + + | Hemoglobin | 4.6Comment: [place] | 4.0 - 6.0 % | EXTERNAL [...] | | | | | [address], | | | | | | [place] [address] | | | | + + + [...] W | | | | | | [facility], | | | | | | [place] [address] | | | | + + + [...] | | | Direct | performed at [facility];[address] | | LAB | | | | [address];[place], [place] | | | | | | [address] | | | | + + + [...] EXTERNAL | | | | performed at [facility];[address] | mmol/L | LAB | | | | [address];[place] | | | | | | [address] | | | | + + + + + + | K | 3.2 (L)Comment: Testing | 3.5 - 4.9 | EXTERNAL | | | | performed at [facility];[address] | mmol/L | LAB | | | | [address];[place] | | | | | | [address] | | | | + + + + + + | Cl | 106Comment: Testing | 99 - 109 mmol/L | EXTERNAL | | | | performed at [facility];[address] | | LAB | | | | [address];[place] | | | | | | [address] | | | | + + + + + + | CO2 | 25Comment: Testing | 23 - 32 mmol/L | EXTERNAL | | | | performed at [facility];[address] | | LAB | | | | [address];[place] | | | | | | [address] | | | | + + + + + + | Anion Gap | 10Comment: Testing | 5 - 20 mmol/L | EXTERNAL | | | | performed at [facility];[address] | | LAB | | | | [address];[place] | | | | | | [address] | | | | + + + + + + | Glucose, | 77Comment: Testing | 65 - 99 mg/dL | EXTERNAL | | | Fasting | performed at [facility];[address] | | LAB | | | | [address];[place] | | | | | | [address] | | | | + + + + + + | BUN | 5 (L)Comment: Testing | 8 - 25 mg/dL | EXTERNAL | | | | performed at [facility];[address] | | LAB | | | | [address];[place] | | | | | | [address] | | | | + + + + + + | Creatinine | 0.60Comment: Testing | 0.50 - 1.00 | EXTERNAL | | | | performed at [facility];[address] | mg/dL | LAB | | | | [address];[place] | | | | | | [address] | | | | + + + + + + | BUN/Creatin | 8Comment: Testing | | EXTERNAL | | | ine Ratio | performed at [facility];[address] | | LAB | | | | [address];[place] | | | | | | [address] | | | | + + + + + + | Calcium | 7.2 (L)Comment: Testing | 8.5 - 10.2 | EXTERNAL | | | | performed at [facility];[address] | mg/dL | LAB | | | | [address];[place] | | | | | | [address] | | | | + + + + + + | Protein, | 5.9 (L)Comment: Testing | 6.3 - 8.2 g/dL | EXTERNAL | | | Total | performed at [facility];[address] | | LAB | | | | [address];[place] | | | | | | [address] | | | | + + + + + + | Albumin | 1.8 (L)Comment: Testing | 3.6 - 5.0 g/dL | EXTERNAL | | | | performed at [facility];[address] | | LAB | | | | [address];[place] | | | | | | [address] | | | | + + + + + + | Globulin | 4.1Comment: Testing | 1.3 - 4.9 g/dL | EXTERNAL | | | | performed at [facility];[address] | | LAB | | | | [address];[place] | | | | | | [address] | | | | + + + + + + | A/G Ratio | 0.5 (L)Comment: Testing | 1.0 - 2.4 | EXTERNAL | | | | performed at [facility];[address] | | LAB | | | | [address];[place] | | | | | | [address] | | | | + + + + + + | Bilirubin | 1.2Comment: Testing | 0.1 - 1.5 mg/dL | EXTERNAL | | | Total | performed at [facility];[address] | | LAB | | | | [address];[place] | | | | | | [address] | | | | + + + + + + | ALP, | 135 (H)Comment: Testing | 35 - 115 U/L | EXTERNAL | | | External | performed at [facility];[address] | | LAB | | | | [address];[place] | | | | | | [address] | | | | + + + + + + | AST | 84 (H)Comment: Testing | 10 - 45 U/L | EXTERNAL | | | | performed at [facility];[address] | | LAB | | | | [address];[place] | | | | | | [address] | | | | + + + + + + | ALT | 21Comment: Testing | 10 - 65 U/L | EXTERNAL | | | | performed at [facility];[address] | | LAB | | | | [address];[place] | | | | | | [address] | | | | + + + [...] | | | | | | at [facility];[address] [place] [address] | | | | | | [facility];[place] [address] | | | | + + + [...] 3:55AM Referring | | | Provider Line: [phone] ID: [id number] | | + + + [...] noted in the bilateral | | | metal dresser spaces. | | + + + + [...] coils are again noted in the bilateral metal dresser spaces. IMPRESSION: No acute | | intracranial process. RADIA Electronically signed by Rosalinda Comer MD on Feb 07 | | 2013 3:55AM Referring Provider Line: [phone] ID: [id number] | | | |Extraaxial Spaces: [...] coils are again noted in the bilateral metal dresser spaces. | | | |IMPRESSION: | | | | | |No acute intracranial process. | | | |RADIA | | | | Electronically signed by Rosalinda Comer MD on Feb 07 2014 3:55AM Referring Provider Line: [phone] ID: [id number] | + + Urinalysis, Microscopic Only (02/06/2014 11:36 PM PDT) + + + + + + | Component | Value | Ref Range | Performed | Pathologist | | | | | At | Signature | + + + + + + | WBC, UA | 11-15Comment: Testing | 0 - 5 /hpf | EXTERNAL | | | | performed at [facility];[address] | | LAB | | | | [address];[place] | | | | | | [address] | | | | + + + + + + | RBC, UA | 16-25Comment: Testing | 0 - 5 /hpf | EXTERNAL | | | | performed at [facility];[address] | | LAB | | | | [address];[place] | | | | | | [address] | | | | + + + + + + | Epithelial | 26-50Comment: Testing | /lpf | EXTERNAL | | | Cells | performed at [facility];[address] | | LAB | | | | [address];[place] | | | | | | [address] | | | | + + + + + + | Bacteria, | 4+ (A)Comment: Testing | | EXTERNAL | | | UA | performed at [facility];[address] | | LAB | | | | [address];[place] | | | | | | [address] | | | | + + + + + + | Mucus, | 2+Comment: Testing | | EXTERNAL | | | Urine | performed at [facility];[address] | | LAB | | | | [address];[place], [place] | | | | | | [address] | | | | + + + [...] EXTERNAL | | | | performed at [facility];[address] | | LAB | | | | [address];[place] | | | | | | [address] | | | | + + + + + + | Clarity, | CLOUDYComment: Testing | | EXTERNAL | | | Urine | performed at [facility];[address] | | LAB | | | | [address];[place] | | | | | | [address] | | | | + + + + + + | Specific | 1.025Comment: Testing | 1.001 - 1.035 | EXTERNAL | | | [place], | performed at [facility];[address] | | LAB | | | Urine | [address];[place] | | | | | | [address] | | | | + + + + + + | Leukocyte | NEGATIVEComment: Testing | | EXTERNAL | | | Esterase, | performed at [facility];[address] | | LAB | | | Urine | [address];[place] | | | | | | [address] | | | | + + + + + + | Nitrite, | NEGATIVEComment: Testing | | EXTERNAL | | | Urine | performed at [facility];[address] | | LAB | | | | [address];[place] | | | | | | [address] | | | | + + + + + + | Urobilinoge | 0.2Comment: Testing | mg/dL | EXTERNAL | | | n, Urine | performed at [facility];[address] | | LAB | | | | [address];[place] | | | | | | [address] | | | | + + + + + + | Protein, | 100 (A)Comment: Testing | mg/dL | EXTERNAL | | | Urine | performed at [facility];[address] | | LAB | | | | [address];[place] | | | | | | [address] | | | | + + + + + + | pH, Urine | 7.0Comment: Testing | 4.6 - 8.0 | EXTERNAL | | | | performed at [facility];[address] | | LAB | | | | [address];[place] | | | | | | [address] | | | | + + + + + + | Blood, | LARGE (A)Comment: | | EXTERNAL | | | Urine | Testing performed at | | LAB | | | | [facility];[address];[place] [address] | | | | + + + + + + | Ketones | TRACE (A)Comment: | mg/dL | EXTERNAL | | | | Testing performed at | | LAB | | | | [facility];[address];[place] [address] | | | | + + + + + + | Bilirubin, | SMALL (A)Comment: | | EXTERNAL | | | Urine | Testing performed at | | LAB | | | | [facility];[address];[place] [address] | | | | + + + + + + | Glucose, | NEGATIVEComment: Testing | mg/dL | EXTERNAL | | | Urine | performed at [facility];[address] | | LAB | | | | [address];[place] | | | | | | [address] | | | | + + + [...] at [facility], [address] [place] [address] | | | Suscepibility for - ESCHERICHIA [...] EXTERNAL | | | | performed at [facility];[address] | | LAB | | | | [address];[place], [place] | | | | | | [address] | | | | + + + [...] RAC | | | Testing performed at [facility];[address] | | | [address];[place] [address] CULTURE | | | NO GROWTH | | | Testing performed at [facility], [address] [facility] [address], [place], [place] | | | [address] | | + + + + +---------+ [...] LAC | | | Testing performed at [facility];[address] | | | [facility];[place] [address] CULTURE | | | NO GROWTH | | | Testing performed at [facility], [address] [facility], [place], [place] | | | [address] | | + + + + +---------+ [...]
--- OUTSIDE RECORDS SUMMARY | ~2020-01-23 | XMS | Encounter Summary ---
Demographics + + + | Address | [address] | | | [place] [address] | + + + | Home Phone | | + + + | Preferred Language | Unknown | + + + | Marital Status | Single | + + + | Evangelical Affiliation | 1041 | + + + | Race | or | + + + | Ethnic Group | Not or | + + + Author + + + | Author | [facility] | | | and [place] | + + + | Organization | [facility] | | | and [place] | + + + | Address | Unknown | + + + | Phone | Unavailable | + + + Support + + + + + | Name | Relationship | Address | Phone | + + + + + | Joanne Pham | ECON | [address] | | | | | [place] | | | | | [address] | | + + + + + | Viktor Son | EDDIE | Unknown | | + + + + + | Edd Gill | ECON | Unknown | | + + + + + | Conner aBrber | ECON | Unknown | | + + + + + Care Team Providers + +------+ + | Care Ticket Printer Name | Role | Phone | + [...] + + | 12/31/ | Hospital | [facility] | Laci Morrison, | Alcohol withdrawal, | | 2017 - | Encounter | [facility] ICU [address] | [address] | uncomplicated (HCC) | | | | [place], | [place], [place] | (Primary Dx); | | 01/04/ | | [place] [address] | [address] | Pneumonia due to | | 2017 | | [phone] | | infectious organism, | | | | | Robel Wilcox, | unspecified | | | | | [address] | laterality, | | | | | [place], [place] | unspecified part of | | | | | [address] | lung; Altered mental | | | | | | status, | | | | | [place], | unspecified; Seizure | | | | | Sarah, [address] | due to alcohol | | | | | [address] [place] | withdrawal, | | | | | [place] [address] | uncomplicated (HCC); | | | | | [phone] | Anemia, unspecified | | | | [...] Lomas MD - 01/04/2017 8:53 AM PDT [facility] DISCHARGE SUMMARY Pt. Name/Age/: Shaila Son 46 [...] Why: Appointment time is 12:30 Contact information: [id number] [place] [id number] RESULTS: Results for SHAILA SON ( ) [...] - 150 cells/uL 800 (H) BF % Macro/Routt Latest Units: % 44 BF % Neutrophils Latest Units: % 2 Volume, Fluid Latest Units: mL 50 BF % Lymphocytes Latest Units: % 44 BF Color Unknown Light Yellow Shaila Son (MR # [id number]) Culture, Body Fluid, Aerobe [[id number]] (Order #: [id number]) Qty: 1 Culture, Body Fluid, Aerobe (Order [id number]) Culture, Body Fluid, Anaerobe (Order [id number]) Culture, Body Fluid, Aerobe Order: [id number] - Part of Panel Order [id number] Status: Preliminary result Visible to patient: No (Not Released) Next appt: None Culture No growth to date Stain 1+ White Blood Cells No organisms seen Resulting Agency: [facility] Specimen Collected: 01/01/17 11:51 Culture, Blood [[id number]] (Order #: [id number]) Qty: 1 Culture, Blood Order: [id number] Status: Preliminary result Visible to patient: No (Not Released) Next appt: None Culture Positive Blood Culture Staphylococcus epidermidis Probable contaminant Stain Gram positive cocci in clusters 1 of 3 bottles positive Resulting Agency: [facility] Specimen Collected: 12/31/16 15:21 Last Resulted: 01/02/17 15:47 Results for SHAILA SON ( ) as of 01/04/2017 08:45 Ref. Range 12/31/2016 17:22 Color, UA Latest Ref Range: Light Yellow, Yellow, Straw Yellow Clarity, UA Latest Ref Range: Clear Clear Specific [place] Latest Ref Range: 1.001 - 1.030 1.009 [...] Range: Negative /LPF Present (A) Culture, Urine [[id number]] (Order #: [id number]) Qty: 1 Culture, Urine Order: [id number] Status: Preliminary result Visible to patient: No (Not Released) Next appt: None Culture 10,000 CFU/ml Staphylococcus coagulase negative Identification and susceptibility to follow. Resulting Agency: [facility] Specimen Collected: 12/31/16 17:22 Last Resulted: 01/03/17 [...] signed by: Grant Lomas MD, 01/04/2017 16:13 [facility] Portions of this chart may have been created with [employer]pp[employer] voice recognition software. Occasi onal wrong-word or [...] Lomas MD - 01/03/2017 8:14 PM PDT [facility] PMG Hospitalist Progress Note Shaila [...] as outlined above. Grant Lomas 01/03/2017 20:14 [facility] Portions of this chart may have been created with [employer] voice recognition software. Occasi onal wrong-word or [...] Mace MD - 01/02/2017 8:15 AM PDT [facility] PMG Hospitalist Progress Note Shaila [...] Intake/Output Summary (Last 24 hours) at 01/02/17 2243 Last data filed at 01/02/17 0435 Gross [...] pneumothorax. No large pleural effusion. No ac sleetmute osseous abnormalities. IMPRESSION - Low lung volumes [...] as outlined above. Grant Lomas 01/02/2017 8:16 [facility] Portions of this chart may have been created with [employer] voice recognition software. Occasi onal wrong-word or [...] Culture, Body Fluid, Sterile, Smear, with Anaerobes [[id number]] Collected: 01/01/17 115 Order Status: Sent Lab Status: In process Updated: 01/01/17 120 Specimen: Body Fluid from Ascites Narrative: The following orders were created for panel order Culture, Body Fluid, Sterile, Smear, wit h Anaerobes. Procedure Abnormality Status --------- ------ Culture, Body Fluid, Aerobe[[id number]] Preliminary result Culture, Body Fluid, Haley...[[id number]] In process Please view results for these tests on the individual orders. Culture, Body Fluid, Aerobe [[id number]] Collected: 01/01/17 115 Order Status: Completed Lab Status: Preliminary result Updated: 01/01/17 162 Specimen: Body Fluid from Ascites Gram Stain Result 1+ White Blood Cells No organisms seen Culture, Body Fluid, Anaerobe [[id number]] Collected: 01/01/17 115 Order Status: Resulted Lab Status: In process Updated: 01/01/17 1202 Specimen: Body Fluid from Ascites Culture, MRSA [[id number]] Collected: 01/01/17 0925 Order Status: Sent Lab Status: In process Updated: 01/01/17 09 Specimen: Respiratory from Nares Culture, Urine [[id number]] Order Status: Canceled Lab Status: No result Specimen: Urine from Urine, clean catch Culture, Urine [[id number]] Collected: 12/31/16 1722 Order Status: Sent Lab Status: In process Updated: 01/01/17 115 Specimen: Urine from Urine, clean catch Culture, Blood [[id number]] (Normal) Collected: 12/31/16 1523 Order Status: Completed Lab Status: Preliminary result Updated: 01/01/17 0331 Specimen: Blood from Peripheral Blood Culture No growth: Monitored continually by instrument for 5 days Culture, Blood [[id number]] (Abnormal) Collected: 12/31/16 1521 Order Status: Completed [...] Monitoring Protocol Electronically signed by: Renetta Walton [facility] 01/01/2017 20:30 Aidee Cantu MD - 01/01/2017 2:43 PM PDT [facility] HOSPITALIST PROGRESS NOTE Patient: Shaila Son : 1970: Age: 46 y.o. MedRec: [id number] PCP: Trixie Rose PA-C Admission date: 12/31/2016 [...] PH UA 7.0 5.0 - 8.0 Specific [place] 1.018 1.001 - 1.030 PROTEIN UA >=500 [...] PH UA 8.0 5.0 - 8.0 Specific [place] 1.009 1.001 - 1.030 PROTEIN UA 100 [...] BF % Lymphocytes 44 % BF % Macro/Routt 44 % BF % Eosinophils 9 % [...] pneumothorax. No large pleural effusion. No ac sleetmute osseous abnormalities. IMPRESSION - Low lung volumes [...] Continue to observe for seizures and give [place] N Ativan per alcohol withdrawal order set [...] mg subcu daily Sarah Martel 01/01/2017 14:43 [facility] Dave Coker Pha D - 12/31/2016 [...] performed and electronically signed by Ricardo Silverman Tender Coordinator 17:49 Reviewed by Dave Wells PharmD 12/31/2016 20:02 documented in this e ncounter H&P Notes Fiona Cornejo MD - 12/31/2016 5:19 PM PDT [facility] Pt. [...] PH UA 7.0 5.0 - 8.0 Specific [place] 1.018 1.001 - 1.030 PROTEIN UA >=500 [...] pneumothorax. No large pleural effusion. No ac sleetmute osseous abnormalities. IMPRESSION - Low lung volumes [...] signed by: Sarah Martel MD 12/31/2016 17:19 [facility] Portions of this chart may have been created with [employer] voice recognition software. Occasi onal wrong-word or [...] PH UA 6.0 5.0 - 8.0 Specific [place] 1.014 1.001 - 1.030 PROTEIN UA >=500 [...] PH UA 6.0 5.0 - 8.0 Specific [place] 1.005 1.001 - 1.030 PROTEIN UA 30 [...] BF % Lymphocytes 18 % BF % Macro/Routt 68 % BF Total cells counted 100 [...] Results Review . Laci Morrison MD 12/31/16 2628 Lashaun Morris RN - 12/31/2016 2:37 PM [...] Za De La Cruz CH, RN at [facility] regarding the appointment and requested she notify Trixie that Shaila requires a referral to their A&D department, which Shaila agrees to as well. Shaila said that transporta tion was a challenge at times and I reminded her that she can schedule transportation throug h the CHR department at [facility] and she said that she would do that. Za also plans t o follow up with a home visit once she is home. Edd has arrived to transport her home onc e she is discharged today. There are no other questions or needs at this time. Electronica lly signed by: Erika Willis RN 01/04/2017 11:30 Discharge summary faxed to [facility] medical records. Cover sheet and fax received added to banner chart. Electronically signed by: Kellie Cramer 01/04/2017 [...] is Trixie Rose PA-C. She uses the [facility] pharmacy as well as the [facility] in [place], [place]. She does not own any DME. I let her know about [facility] as well as [facility] if she were to need any DME. She is agreeable to Home Health services as well a [facility] health services. I notified Za De La Cruz CH RN at [facility] elisabeth t this patient was here and to anticipate her needs at time of discharge. She appreciated t he call and said that she knew that she was seen in our ER. Shaila absolutely refused to allo w me to send a referral to [facility] or any other SNF. She is adament [...] [address] | [place] | [phone] | | [facility] | | [address] | | | - LABORATORY | | [...] [address] | [place] | [phone] | | [facility] | | [address] | | | - LABORATORY | | [...] | | | Cells | | | [facility] | | | | | | MEDICAL | | | | | | CENTER - | | | | | | LABORATORY | | + + + + + + | Red Blood | 2.89 (L) | 3.70 - 5.20 | [facility] | | | Cells | | M/uL | [facility] | | | | | | [...] ST. | [address] | [place] | [phone] | | [facility] | | [address] | | | - LABORATORY | | [...] | non- | FILTRATION | mL/min/1.73m2 | [facility] | | | [place]an | RATE,ESTIMATED | | MEDICAL | | | | mL/min/1.10z7Fqzu than | | CENTER - | | [...] + | [facility] | [address] | [place] | [phone] | | [facility] | | [address] | | | - LABORATORY | | [...] | [address] | [place] | [phone] | | [facility] | | [address] | | | - LABORATORY | | [...] + | [facility] | [address] | [place] | [phone] | | [facility] | | [address] | | | - LABORATORY | | [...] ST. | [address] | [place], [place] | [phone] | | [facility] | | [address] | | | - LABORATORY | | [...] + | [facility] [facility] | [address] | [place] | [phone] | | [facility] | | [address] | | | - LABORATORY | | [...] [address] | [place] | [phone] | | [facility] | | [address] | | | - LABORATORY | | [...] [address] | [place] | [phone] | | [facility] | | [address] | | | - LABORATORY | | [...] mL/min/1.73m2 | [facility] | | | [place] | RATE,ESTIMATED | | MEDICAL | | | | mL/min/1.51x5Xngn than | | CENTER - | | [...] [address] | [place] | [phone] | | [facility] | | [address] | | | - LABORATORY | | [...] - 1.030 | [facility] | | | [place], | | | [facility] | | [...] [address] | [place] | [phone] | | [facility] | | [address] | | | - LABORATORY | | [...] [address] | [place] | [phone] | | [facility] | | [address] | | | - LABORATORY | | [...] mL/min/1.73m2 | [facility] | | | [place] | RATE,ESTIMATED | | MEDICAL | | | | mL/min/1.82v5Pcdp than | | CENTER - | | [...] ST. | [address] | [place], [place] | [phone] | | [facility] | | [address] | | | - LABORATORY | | [...] + | [facility] | [address] | [place] | [phone] | | [facility] | | [address] | | | - LABORATORY | | [...] [address] | [place] | [phone] | | [facility] | | [address] | | | - LABORATORY | | [...] + | [facility] | [address] | [place] | [phone] | | [facility] | | [address] | | | - LABORATORY | | [...] + | [address] | [address] | [place] | [phone] | | [facility] | | [address] | | | - LABORATORY | | [...] [address] | [place] | [phone] | | [facility] | | [address] | | | - LABORATORY | | [...] [address] | [place] | [phone] | | [facility] | | [address] | | | - LABORATORY | | [...] [address] | [place] | [phone] | | [facility] | | [address] | | | - LABORATORY | | [...] 0.51 (L) | 0.60 - 1.30 | [facility] | | | | | mg/dL | [facility] | | | | | | MEDICAL | | | | | | CENTER - | | | | | | LABORATORY | | + + + + + + | eGFR, | >60Comment: GLOMERULAR | >=60 | [facility] | | | non- | FILTRATION | mL/min/1.73m2 | [facility] | | | [place] | RATE,ESTIMATED | | MEDICAL | | | | mL/min/1.73y9Iufh than | | CENTER - | | [...] + | [facility] | [address] | [place] | [phone] | | [facility] | | [address] | | | - LABORATORY | | [...] [address] | [place] | [phone] | | [facility] | | [address] | | | - LABORATORY | | [...] [address] | [place] | [phone] | | [facility] | | [address] | | | - LABORATORY | | [...] [address] | [place] | [phone] | | [facility] | | [address] | | | - LABORATORY | | [...] - 1.030 | [facility] | | | [place], | | | [facility] | | [...] [address] | [place] | [phone] | | [facility] | | [address] | | | - LABORATORY | | [...] - 1.030 | [facility] | | | [place], | | | [facility] | | [...] | | Cells, | | | [facility] | | | Urine | | | [...] + | [facility] | [address] | [place] | [phone] | | [facility] | | [address] | | | - LABORATORY | | [...] + | [facility] [facility] | [address] | [place], [place] | [phone] | | [facility] | | [address] | | | - LABORATORY | | [...] + | [facility] | [address] | [place] | [phone] | | [facility] | | [address] | | | - LABORATORY | | [...] [address] | [place] | [phone] | | [facility] | | [address] | | | - LABORATORY | | [...] + | [facility] | [address] | [place] | [phone] | | [facility] | | [address] | | | - LABORATORY | | [...] [address] | [place] | [phone] | | [facility] | | [address] | | | - LABORATORY | | [...] ST. | [address] | [place] | [phone] | | [facility] | | [address] | | | - LABORATORY | | [...] | 0.75 | 0.60 - 1.30 | [facility] | | | | | mg/dL | [facility] | | | | | | MEDICAL | | | | | | CENTER - | | | | | | LABORATORY | | + + + + + + | eGFR, | >60Comment: GLOMERULAR | >=60 | [facility] | | | non- | FILTRATION | mL/min/1.73m2 | [facility] | | | [place]an | RATE,ESTIMATED | | MEDICAL | | | | mL/min/1.22q2Nqyu than | | CENTER - | | [...] | | | | | mg/dL | [facility] | | | | | | [...] [address] | [place] | [phone] | | [facility] | | [address] | | | - LABORATORY | | [...] [address] | [place] | [phone] | | [facility] | | [address] | | | - LABORATORY | | [...] PDT | | | | | [facility] at 0830, For 1 | | [...] PDT | | | | | ONCE, [facility] 01/03/17 at 1545, For 1 [...] | | | | mL/hr, Intravenous, ONCE, [facility] | | | | | | | [...] | | | | First dose on [facility] 01/04/17 at 0900 | | AM [...]
--- OUTSIDE RECORDS SUMMARY | ~2020-01-23 | XMS | Encounter Summary ---
Demographics + + + | Address | [address] | | | [place] [address] | + + + | Home Phone [...] Author + + + | Author | [facility] | | | and [place] | + + + | Organization | [facility] | | | and [place] | + + + | Address | Unknown | + + + | Phone | Unavailable | + + + Support + + + + + | Name | Relationship | Address | Phone | + + + + + | Joanne Pham | ECON | [address] | | | | | [place] | | | | | [address] | | + + + + + | Viktor Son | EDDIE | Unknown | | + + + + + | Edd Gill | ECON | Unknown | | + + + + + | Conner Barber | ECON | Unknown | | + + + + + Care Team Providers + +------+ + | Care Research Pharmacist Name | Role | Phone | + +------+ + | Trixie Rose PA-C | PCP | | + +------+ + Reason for Visit +--------+--------+ + | Reason | Onset | Comments | | | Date | | +--------+--------+ + | Other | 09/08/ | proactive screening | | | 2020 | | +--------+--------+ + Encounter Details +--------+ + + + + | Date | Type | Department | Care Team | Description | +--------+ + + + + | 09/08/ | Telephone | [facility] | Mitchell Stewart | Other (proactive | | 2020 | | GASTROENTEROLOGY | MD Conor [address] | screening) | | | | [address] | [place] [place], [place] | | | | | [place], [place] | [address] | | | | | [address] | | | | | | [phone] | | | +--------+ + + + [...] this encounter Miscellaneous Notes Telephone Encounter - Giselle Chen CNA - 09/09/2019 10:46 AM PDTProactive shay brand for upcoming office visit to help ensure the clinic environment remains a safe place to re ceive care. 1. Patient reports the following symptoms and/or exposure on the epidemic risk screen : o Fever greater than 100.4 F?: no o New onset (within the last 14 days) cough?: no o New onset (within the last 14 days) shortness of breath?: no o New onset (within the last 14 days) loss of taste or smell?: no o Close contact with someone who has been diagnosed with COVID-19?: no The patient reported no symptoms or exposure and proceeded with proactive screening process . 2. Have you or someone you are in close contact with been tested for COVID-19?: No. Okay to see patient in clinic per scheduling guidelines, proceeded to question #3 If YES, have the following three things happened? ? Has it been ten days since your symptoms first started?: ? Have you been fever free for 72 hours without taking fever reducing medications?: ? Have you experienced at least 3 days of improvement in your respiratory symptoms (e.g. co ugh, shortness of breath)?: 3. Does the patient have MyChart Access?: No. Patient refused. 4. Is the patient allowed a visitor per policy?: yes. If YES, ask the following questions to the VISITOR ? Does the visitor have any of the following? no symptoms reported The visitor reported no symptoms or exposure and proceeded with proactive screening process. ? Have you or someone you are in close contact with been tested for COVID-19?: Please be aware that you will be asked these same questions when you arrive at the clinic. If you have any changes in your symptoms between now and your visit, please call us so we c an get you scheduled for an alternative visit before you arrive at the clinic. For your safety and the safety of others, we ask that if you are being seen in person at on e of our clinics you arrive wearing a mask. Hand washing is mora to keeping our clinic a safe place to receive care. While you are in ou r clinics you will be asked to perform hand washing at different intervals throughout your v isit. documented in t his encounter Plan of Treatment Not on filedocumented as of this encounter Visit Diagnoses Not on filedocumented in this encounter"
--- OUTSIDE RECORDS SUMMARY | ~2020-01-23 | XMS | Encounter Summary ---
Demographics + + + | Address | [address] | | | [place] [address] | + + + | Home Phone | | + + + | Preferred Language | Unknown | + + + | Marital Status | Single | + + + | Mu-Ism Affiliation | 1041 | + + + | Race | or | + + + | Ethnic Group | Not or | + + + Author + + + | Author | [facility] | | | and [place] | + + + | Organization | [facility] | | | and [place] | + + + | Address | Unknown | + + + | Phone | Unavailable | + + + Support + + + + + | Name | Relationship | Address | Phone | + + + + + | Joanne Pham | ECON | [address] | | | | | [place] | | | | | [address] | | + + + + + | Viktor Berry | EDDIE | Unknown | | + + + + + | Edd Gill | ECON | Unknown | | + + + + + | Conner Barber | ECON | Unknown | | + + + + + Care Team Providers + +------+ + | Care Telepathist Name | Role | Phone | + +------+ + | Trixie Rose PA-C | PCP | | + +------+ + Encounter Details +--------+ + + + + | Date | Type | Department | Care Team | Description | +--------+ + + + + | 03/07/ | Orders Only | [facility] | Inga Dietz V, | | | 2016 | | CONVERSION 888 | MD [address] | | | | | [place] | [place] | | | | | [place] | [id number] | | | | | [address] | | | | | | [phone] | | | +--------+ + + + [...] + +--------+ + + + | ECHO INTERPRETATION | Routin | 03/07/2017 | | Results for this | | OF OUTSIDE FILMS | e | 12:07 PM | | procedure are in the | | | | PST | | results section. | + +--------+ + + + documented in this encounter Results ECHO Interpretation of Outside Films (03/07/2017 12:07 PM PST) + + | Specimen | + + | | + + + + + | Impressions | Performed At | + + + | 1. The left ventricle is normal in size, mild concentric hypertrophy | | | and normal systolic function EF 60-65%. 2. The right ventricle is | | | normal in size and function. 3. Mild mitral regurgitation with | | | moderately enlarged left atrium. 4. Mild tricuspid regurgitation with | | | no pulmonary hypertension RVSP 37 mmHg. 5. There is no pericardial | | | effusion. 6. No vegetation seen on this exam, if clinically indicated | | | SHERRI should be considered. | | + + + + + + | Narrative | Performed At | + + + | Patient Name: SHAILA BERRY Date of : 1970 | | | Performing Physician: Josee Little | | | | | | INDICATIONS Bacteremia, r/o endocarditis | | | CONCLUSIONS 1. The left ventricle is normal in size, | | | mild concentric hypertrophy and normal systolic function EF 60-65%. | | | 2. The right ventricle is normal in size and function. 3. Mild mitral | | | regurgitation with moderately enlarged left atrium. 4. Mild | | | tricuspid regurgitation with no pulmonary hypertension RVSP 37 mmHg. | | | 5. There is no pericardial effusion. 6. No vegetation seen on this | | | exam, if clinically indicated SHERRI should be considered. FINDINGS | | | -------- ECG rhythm: Sinus rhythm. Study: A 2-dimensional | | | transthoracic echocardiogram with m-mode, spectral and color flow | | | Doppler was perfomed. Study: This was a technically adequate study. | | | Left Ventricle: Overall left ventricular systolic function is normal | | | with, an EF between 60 - 65 %. Left Ventricle: The left ventricle | | | cavity size is normal. Left Ventricle: There is mild concentric left | | | ventricular hypertrophy. Left Ventricle: The diastolic filling | | | pattern indicates impaired relaxation consistent with mild dysfunction | | | (Grade I). Right Ventricle: The right ventricle is normal in size | | | and function. Left Atrium: The left atrium is markedly dilated. Left | | | Atrium: The left atrium is mild to moderately enlarged. Right | | | Atrium: The right atrium is mildly enlarged. Aortic Valve: The aortic | | | valve is trileaflet. Aortic Valve: Trace amount of aortic | | | regurgitation. Aortic Valve: There is no evidence of aortic stenosis. | | | Mitral Valve: The mitral valve is normal. Mitral Valve: Mild mitral | | | regurgitation is present. Tricuspid Valve: The tricuspid valve | | | appears structurally normal. Tricuspid Valve: Mild tricuspid | | | regurgitation present. Tricuspid Valve: There is no evidence of | | | pulmonary hypertension. Tricuspid Valve: The right ventricular | | | systolic pressure (pulmonary artery systolic pressure), as measured by | | | Doppler, is 37.35mmHg. Pulmonic Valve: The pulmonic valve was not | | | well visualized. Pulmonic Valve: Trace pulmonic regurgitation. | | | Pericardium: There is no pericardial effusion. Pericardium: No | | | pleural effusion seen. IVC/Hepatic Veins: The inferior vena cava is | | | normal in size and collapses > 50 % with sniff, indicating normal | | | central venous pressures. Aorta: The aortic root, ascending aorta are | | | within normal dimensions. General comments: No vegetation seen on | | | this exam, if clinically indicated SHERRI should be considered. | | | MEASUREMENTS Ao sinus: 2.[address] junct: | | | 2.46 cm LA Diam: 4.21 cm EDV(Teich): 62.17 ml IVSd: 1.22 | | | cm LVIDd: 3.80 cm LVPWd: 1.19 cm LVOT Area: 3.57 cm2 LVOT | | | Diam: 2.13 cm %FS: 14.01 % EF(Teich): 30.44 % ESV(Teich): | | | 43.24 ml LVIDs: 3.27 cm SV(Teich): 18.92 ml RVIDd: | | | 2.56 cm LVEF MOD A2C: 60.61 % SV MOD A2C: 67.73 ml LVEF MOD | | | A4C: 52.07 % SV MOD A4C: 65.21 ml EF Biplane: 58.06 % | | | LVEDV MOD BP: 122.88 ml LVESV MOD BP: 51.53 ml LVEDV MOD A2C: | | | 111.74 ml LVLd A2C: 8.19 cm LVEDV MOD A4C: 125.23 ml LVLd | | | A4C: 7.53 cm LVESV MOD A2C: 44.01 ml LVLs A2C: 6.32 cm | | | LVESV MOD A4C: 60.02 ml LVLs A4C: 6.25 cm LAESV(A-L): 82.03 | | | ml LAESV Index (A-L): 47.14 ml/m2 LAAs A2C: 22.70 cm2 LAESV | | | A-L A2C: 81.19 ml LALs A2C: 5.38 cm LAAs A4C: 22.20 cm2 | | | LAESV A-L A4C: 70.14 ml LALs A4C: 5.21 cm RAAs: 11.60 cm2 | | | RAESV A-L: 25.98 ml RAESV MOD: 25.22 ml RALs: 4.40 cm | | | TAPSE: 2.53 cm AV maxP.09 mmHg AV meanP.09 mmHg AV | | | Vmax: 1.42 m/s AV Vmean: 0.95 m/s AV VTI: 28.76 cm MARLIN | | | Vmax: 2.80 cm2 MARLIN (VTI): 2.57 cm2 AVAI Vmax: 0.00 cm2/m2 | | | AVAI (VTI): 0.00 cm2/m2 LVOT maxP.99 mmHg LVOT meanPG: | | | 2.61 mmHg LVSI Dopp: 42.64 ml/m2 LVSV Dopp: 74.20 ml LVOT | | | Vmax: 1.11 m/s LVOT Vmean: 0.76 m/s LVOT VTI: 20.74 cm MV | | | A Juan A: 0.72 m/s MV DecT: 208.92 ms MV E Juan A: 0.75 m/s MV | | | E/A Ratio: 1.03 MV PHT: 60.58 ms MVA By PHT: 3.63 cm2 | | | Septal e': 0.05 m/s Septal E/e': 12.78 Lateral e': 0.07 m/s | | | Lateral E/e': 10.30 RAP: 5 mmHg RVSP: 37.35 mmHg TR | | | maxP.35 mmHg TR Vmax: 2.84 m/s Examination Grader: EMILY | | | Authenticated by: Josee Tinocosan carlos Report Date/Time: 03-07-2017 | | | 20:49:19 | | + + + + + | Procedure Note | + + | Edgardo Dean Conversion - 11/28/2018 6:34 PM PDT Patient Name: Jose Miguel BERRY of | | : 1970 Performing Physician: Josee | | Alejandrinasan carlos INDICATIONS------ | | -----Bacteremia, r/o endocarditis CONCLUSIONS 1. The left ventricle is normal | | in size, mild concentric hypertrophy and normal systolic function EF 60-65%.2. The | | right ventricle is normal in size and function.3. Mild mitral regurgitation with | | moderately enlarged left atrium.4. Mild tricuspid regurgitation with no pulmonary | | hypertension RVSP 37 mmHg.5. There is no pericardial effusion.6. No vegetation seen on | | this exam, if clinically indicated SHERRI should be considered. FINDINGS--------ECG rhythm: | | Sinus rhythm.Study: A 2-dimensional transthoracic echocardiogram with m-mode, spectral | | and color flow Doppler was perfomed.Study: This was a technically adequate study.Left | | Ventricle: Overall left ventricular systolic function is normal with, an EF between 60 - | | 65 %.Left Ventricle: The left ventricle cavity size is normal.Left Ventricle: There is | | mild concentric left ventricular hypertrophy.Left Ventricle: The diastolic filling | | pattern indicates impaired relaxation consistent with mild dysfunction (Grade I).Right | | Ventricle: The right ventricle is normal in size and function.Left Atrium: The left | | atrium is markedly dilated.Left Atrium: The left atrium is mild to moderately | | enlarged.Right Atrium: The right atrium is mildly enlarged.Aortic Valve: The aortic | | valve is trileaflet.Aortic Valve: Trace amount of aortic regurgitation.Aortic Valve: | | There is no evidence of aortic stenosis.Mitral Valve: The mitral valve is normal.Mitral | | Valve: Mild mitral regurgitation is present.Tricuspid Valve: The tricuspid valve appears | | structurally normal.Tricuspid Valve: Mild tricuspid regurgitation present.Tricuspid | | Valve: There is no evidence of pulmonary hypertension.Tricuspid Valve: The right | | ventricular systolic pressure (pulmonary artery systolic pressure), as measured by | | Doppler, is 37.35mmHg.Pulmonic Valve: The pulmonic valve was not well | | visualized.Pulmonic Valve: Trace pulmonic regurgitation.Pericardium: There is no | | pericardial effusion.Pericardium: No pleural effusion seen.IVC/Hepatic Veins: The | | inferior vena cava is normal in size and collapses > 50 % with sniff, indicating normal | | central venous pressures.Aorta: The aortic root, ascending aorta are within normal | | dimensions.General comments: No vegetation seen on this exam, if clinically indicated | | SHERRI should be considered. MEASUREMENTS Ao sinus: 2.[address] junct: | | 2.46 cmLA Diam: 4.21 cmEDV(Teich): 62.17 mlIVSd: 1.22 cmLVIDd: 3.80 cmLVPWd: | | 1.19 cmLVOT Area: 3.57 [id number] Diam: 2.13 cm%FS: 14.01 %EF(Teich): 30.44 | | %ESV(Teich): 43.24 mlLVIDs: 3.27 cmSV(Teich): 18.92 mlRVIDd: 2.56 cmLVEF MOD | | A2C: 60.61 %SV MOD A2C: 67.73 mlLVEF MOD A4C: 52.07 %SV MOD A4C: 65.21 mlEF | | Biplane: 58.06 %LVEDV MOD BP: 122.88 mlLVESV MOD BP: 51.53 mlLVEDV MOD A2C: | | 111.74 mlLVLd A2C: 8.19 cmLVEDV MOD A4C: 125.23 mlLVLd A4C: 7.53 cmLVESV MOD A2C: | | 44.01 mlLVLs A2C: 6.32 cmLVESV MOD A4C: 60.02 mlLVLs A4C: 6.25 cmLAESV(A-L): | | 82.03 mlLAESV Index (A-L): 47.14 ml/m2LAAs A2C: 22.70 [id number] A-L A2C: 81.19 | | mlLALs A2C: 5.38 cmLAAs A4C: 22.20 [id number] A-L A4C: 70.14 mlLALs A4C: 5.21 | | cmRAAs: 11.60 [id number] A-L: 25.98 mlRAESV MOD: 25.22 mlRALs: 4.40 cmTAPSE: | | 2.53 cmAV maxP.09 mmHgAV meanP.09 mmHgAV Vmax: 1.42 m/Uvaldo Vmean: 0.95 | | m/Uvaldo VTI: 28.76 cmAVA Vmax: 2.80 cm2AVA (VTI): 2.57 [id number] Vmax: 0.00 | | cm2/m2AVAI (VTI): 0.00 cm2/m2LVOT maxP.99 mmHgLVOT meanP.61 mmHgLVSI Dopp: | | 42.64 ml/m2LVSV Dopp: 74.20 mlLVOT Vmax: 1.11 m/sLVOT Vmean: 0.76 m/sLVOT VTI: | | 20.74 cmMV A Juan A: 0.72 m/sMV DecT: 208.92 msMV E Juan A: 0.75 m/sMV E/A Ratio: | | 1.03MV PHT: 60.58 msMVA By PHT: 3.63 [id number] e': 0.05 m/sSeptal E/e': | | 12.78Lateral e': 0.07 m/sLateral E/e': 10.30RAP: 5 mmHgRVSP: 37.35 mmHgTR maxPG: | | 32.35 mmHgTR Vmax: 2.84 m/s Examination Grader: DBSAuthenticated by: Josee | | [facility] CountyraReport Date/Time: 03-07-2017 20:49:19 IMPRESSION: 1. The left ventricle is | | normal in size, mild concentric hypertrophy and normal systolic function EF 60-65%.2. | | The right ventricle is normal in size and function.3. Mild mitral regurgitation with | | moderately enlarged left atrium.4. Mild tricuspid regurgitation with no pulmonary | | hypertension RVSP 37 mmHg.5. There is no pericardial effusion.6. No vegetation seen on | | this exam, if clinically indicated SHERRI should be considered. | |LA Diam: 4.21 cm | |EDV(Teich): 62.17 ml | |IVSd: 1.22 cm | |LVIDd: 3.80 cm | |LVPWd: 1.19 cm | |LVOT Area: 3.57 cm2 | |LVOT Diam: 2.13 cm | |%FS: 14.01 % | |EF(Teich): 30.44 % | |ESV(Teich): 43.24 ml | |LVIDs: 3.27 cm | |SV(Teich): 18.92 ml | |RVIDd: 2.56 cm | |LVEF MOD A2C: 60.61 % | |SV MOD A2C: 67.73 ml | |LVEF MOD A4C: 52.07 % | |SV MOD A4C: 65.21 ml | |EF Biplane: 58.06 % | |LVEDV MOD BP: 122.88 ml | |LVESV MOD BP: 51.53 ml | |LVEDV MOD A2C: 111.74 ml | |LVLd A2C: 8.19 cm | |LVEDV MOD A4C: 125.23 ml | |LVLd A4C: 7.53 cm | |LVESV MOD A2C: 44.01 ml | |LVLs A2C: 6.32 cm | |LVESV MOD A4C: 60.02 ml | |LVLs A4C: 6.25 cm | |LAESV(A-L): 82.03 ml | |LAESV Index (A-L): 47.14 ml/m2 | |LAAs A2C: 22.70 cm2 | |LAESV A-L A2C: 81.19 ml | |LALs A2C: 5.38 cm | |LAAs A4C: 22.20 cm2 | |LAESV A-L A4C: 70.14 ml | |LALs A4C: 5.21 cm | |RAAs: 11.60 cm2 | |RAESV A-L: 25.98 ml | |RAESV MOD: 25.22 ml | |RALs: 4.40 cm | |TAPSE: 2.53 cm | |AV maxP.09 mmHg | |AV meanP.09 mmHg | |AV Vmax: 1.42 m/s | |AV Vmean: 0.95 m/s | |AV VTI: 28.76 cm | |MARLIN Vmax: 2.80 cm2 | |MARLIN (VTI): 2.57 cm2 | |AVAI Vmax: 0.00 cm2/m2 | |AVAI (VTI): 0.00 cm2/m2 | |LVOT maxP.99 mmHg | |LVOT meanP.61 mmHg | |LVSI Dopp: 42.64 ml/m2 | |LVSV Dopp: 74.20 ml | |LVOT Vmax: 1.11 m/s | |LVOT Vmean: 0.76 m/s | |LVOT VTI: 20.74 cm | |MV A Juan A: 0.72 m/s | |MV DecT: 208.92 ms | |MV E Juan A: 0.75 m/s | |MV E/A Ratio: 1.03 | |MV PHT: 60.58 ms | |MVA By PHT: 3.63 cm2 | |Septal e': 0.05 m/s | |Septal E/e': 12.78 | |Lateral e': 0.07 m/s | |Lateral E/e': 10.30 | |RAP: 5 mmHg | |RVSP: 37.35 mmHg | |TR maxP.35 mmHg | |TR Vmax: 2.84 m/s | | | |Examination Grader: DBS | |Authenticated by: Josee Little | |Report Date/Time: 03-07-2017 20:49:19 | | | |IMPRESSION: | |1. The left ventricle is normal in size, mild concentric hypertrophy and normal systolic fu nction EF 60-65%. | |2. The right ventricle is normal in size and function. | |3. Mild mitral regurgitation with moderately enlarged left atrium. | |4. Mild tricuspid regurgitation with no pulmonary hypertension RVSP 37 mmHg. | |5. There is no pericardial effusion. | |6. No vegetation seen on this exam, if clinically indicated SHERRI should be considered. | + + documented in this encounter Visit Diagnoses Not on filedocumented in this encounter"
--- OUTSIDE RECORDS SUMMARY | ~2020-01-23 | XMS | Encounter Summary ---
Demographics + + + | Address | [address] | | | [place] [address] | + + + | Home Phone | | + + + | Preferred Language | Unknown | + + + | Marital Status | Single | + + + | Alevism Affiliation | 1041 | + + + | Race | or | + + + | Ethnic Group | Not or | + + + Author + + + | Author | [facility] | | | and [place] | + + + | Organization | [facility] | | | and [place] | + + + | Address | Unknown | + + + | Phone | Unavailable | + + + Support + + + + + | Name | Relationship | Address | Phone | + + + + + | Joanne Pham | ECON | [address] | | | | | [place] | | | | | [address] | | + + + + + | Viktor Son | EDDIE | Unknown | | + + + + + | Edd Gill | ECON | Unknown | | + + + + + | Conner Barber | ECON | Unknown | | + + + + + Care Team Providers + +------+ + | Care After School Program Coordinator Name | Role | Phone | [...] + + | 09/08/ | Telephone | [facility] | Mitchell Stewart | Other (proactive | | 2020 | | GASTROENTEROLOGY | MD Conor [address] | screening) | | | | [address] | [address] [place], [place] | | | | | [place], [place] | [address] | | | | | [address] | | | | | | [phone] | | | +--------+ + + + [...]
--- OUTSIDE RECORDS SUMMARY | ~2020-01-23 | XMS | Encounter Summary ---
Demographics + + + | Address | [address] | | | [place] [address] | + + + | Home Phone | | + + + | Preferred Language | Unknown | + + + | Marital Status | Single | + + + | Hindu Affiliation | 1041 | + + + | Race | or | + + + | Ethnic Group | Not or | + + + Author + + + | Author | [facility] | | | and [place] | + + + | Organization | [facility] | | | and [place] | + + + | Address | Unknown | + + + | Phone | Unavailable | + + + Support + + + + + | Name | Relationship | Address | Phone | + + + + + | Joanne Pham | ECON | [address] | | | | | [place] | | | | | [address] | | + + + + + | Viktor Son | EDDIE | Unknown | | + + + + + | Edd Gill | ECON | Unknown | | + + + + + | Conner Barber | ECON | Unknown | | + + + + + Care Team Providers + +------+ + | Care Construction Technology Instructor Name | Role | Phone | + [...] + + | 11/24/ | Telephone | [facility] | Mitchell Stewart | Records Request | | 2020 | | GASTROENTEROLOGY | MD Conor [address] | (Ultrasound) | | | | [address] | [address] [place], [place] | | | | | [place], [place] | [address] | | | | | [address] | | | | | | [phone] | | | +--------+ + + + [...] Miscellaneous Notes Telephone Encounter - Ashlyn Raines, Food Preservation Scientist - 11/25/2019 3:08 PM PDTReceigarth d call from John[facility] at [facility] and she was requesting for the ultrasound order from September to be faxed as they are reviewing Dr. Stewart's note from 09/09/19 and they noticed he wa s wanting a ultrasound done. Informed her the only order for the ultrasound I see was entered on 09/17/19 and shows final result. She then asked if we can fax it to them at [phone]. * faxed over todayElectronically signed by Ashlyn Raines, Food Preservation Scientist at 0 3:11 PM PDTdocumented in this encounter Plan of Treatment Not on filedocumented as of this encounter Visit Diagnoses Not on filedocumented in this encounter"
--- OUTSIDE RECORDS SUMMARY | ~2020-01-23 | XMS | Encounter Summary ---
Demographics + + + | Address | [address] | | | [place] [address] | + + + | Home Phone | | + + + | Preferred Language | Unknown | + + + | Marital Status | Single | + + + | Congregation Affiliation | 1041 | + + + | Race | or | + + + | Ethnic Group | Not or | + + + Author + + + | Author | [facility] | | | and [place] | + + + | Organization | [facility] | | | and [place] | + + + | Address | Unknown | + + + | Phone | Unavailable | + + + Support + + + + + | Name | Relationship | Address | Phone | + + + + + | Joanne Pham | ECON | [address] | | | | | [place] | | | | | [address] | | + + + + + | Viktor Son | EDDIE | Unknown | | + + + + + | Edd Gill | ECON | Unknown | | + + + + + | Conner Barber | ECON | Unknown | | + + + + + Care Team Providers + +------+ + | Care Double Surface Operator Name | Role | Phone | + +------+ + | Trixie Rose PA-C | PCP | | + +------+ + Encounter Details +--------+ + + + + | Date | Type | Department | Care Team | Description | +--------+ + + + + | 04/09/ | Hospital | [facility] | Oscar Garcia, | Hepatic | | 2017 - | Encounter | [facility] | MD Jonelle BORDEN | encephalopathy | | | | CARE FLOOR [address] | [place] [address] | ([facility]); Alcohol | | 04/17/ | | [address] | [phone] | abuse, continuous; | | 2017 | | [place], [place] | | Anemia, unspecified; | | | | [id number] | | Electrolyte and | | | | [phone] | | fluid disorders not | | | | | | elsewhere | | | | | | classified; | | | | | | Malnutrition of | | | | | | moderate degree | | | | | | (HCC); Acute hepatic | | | | | | encephalopathy; | | | | | | Alcoholic cirrhosis | | | | | | of liver with | | | | | | ascites (HCC); | | | | | | Ascites due to | | | | | | alcoholic cirrhosis | | | | | | (HCC); Alcohol | | | | | | dependence with | | | | | | uncomplicated | | | | | | intoxication (HCC); | | | | | | Tachycardia; | | | | | | Dehydration; | | | | | | Hypocalcemia; | | | | | | Hypomagnesemia; | | | | | | Anasarca | +--------+ + + + + Social [...] + + + | Blood Pressure | 118/61 | 04/17/2016 3:30 PM | | | | | PST | | + + + + + | Pulse | 94 | 04/17/2016 3:30 PM | | | | | PST | | + + + + + | Temperature | 36.8 C (98.3 F) | 04/17/2016 3:30 PM | | | | | PST | | + + + + + | Respiratory Rate | 16 | 04/17/2016 3:30 PM | | | | | PST | | + + + + + | Oxygen Saturation | - | - | | + + + + + | Inhaled Oxygen | - | - | | | Concentration | | | | + + + + + | Weight | 63.5 kg (140 lb) | 04/17/2016 3:30 PM | | | | | PST | | + + + + + | Height | 170.2 cm (5' 7") | 04/17/2016 3:30 PM | | | | | PST | | + + + + + | Body Mass Index | 21.93 | 04/17/2016 3:30 PM | | | | | PST | [...] documented as of this encounter Discharge Summaries Claude Dominique MD - 04/17/2016 11:09 AM PST Discharge Summaries by Claude Dominique MD at 04/17/16 1109 Author: Claude Dominique MD Service: Hospitalist Author Type: Physician Filed: 04/17/16 1115 Date of Service: 04/17/16 1109 Status: Signed Insurance Claims Processor: Claude Dominique MD (Physician) [facility] Service: Hospitalist Discharge Summary Date of Admission: 04/09/2016 Date of Discharge: 04/17/2016 Discharge Provider: Claude Dominique MD Treatment Team: Admitting Provider: Sravanthi Brooks MD Primary Care Physician: Efra Holguin Discharge Diagnoses: Principal Problem: Acute hepatic encephalopathy (HCC) Refractory ascites Alcohol withdrawal Active Problems: Alcohol abuse, continuous Hypomagnesemia Anemia, unspecified Blood alcohol level of 120-199 mg/100 ml Electrolyte and fluid disorders not elsewhere classified Significant Diagnostic Studies: Us Paracentesis Including Us Guidance 04/13/2016 1. Successful ultrasound-guided therapeutic paracentesis with removal of 4700 mL of hazy yellow peritoneal fluid. 2. No immediate postprocedural complications were encounter ed. F HISTORY OF PRESENTATION: Shaila oSn is a 45 y.o. female who has a PMHx significant for alcohol abuse and c irrhosis who presents with alcohol intoxication and worsening ascites. A paracenetesis was p erformed in ED and she was admitted for further management. HOSPITAL COURSE: Patient underwent therapy for alcohol withdrawal with prn diazepam and librium. Her in itial paracentesis did not show evidence of SBP. During the course of her hospitalization nereida jacobson developed significant hepatic encephalopathy as well. She received lactulose and xifaxan w as added to which her encephalopathy improved. She also underwent a repeat paracentesis(1st one yielded 4L second one close to 5L), due to symptomatic abdominal distention. Her diureti cs were intensified. Patient was extensively counseled on alcohol abstinence and prognosis. Today she is telling me she does not want to go to [facility]. She feels she is ableto go home with her sister as her caregiver. She appears alert and oriented and capable of med ical decision and reassured me she will stay off alcohol. I also instructed her to FU with her PCP in 1 week -2 weeks and consider outpatient MRI of liver to evaluate liver nodule noted on US. DISCHARGE EXAM Vital Signs: BP 132/66 mmHg | Pulse 92 | Temp(Src) 98.4 F (36.9 C) (Oral) | Resp 16 | Ht 1.702 m (5' 7") | Wt 63.504 kg (140 lb) | BMI 21.92 kg/m2 | SpO2 99% | ? No Alert oriented x3 No asterixis or myoclonus Chest is clear CVs RRR Abdomen - there is stable distention and ascites similar to last 2 days Trace edema in LE DATA CBC: Lab Results Component Value Date WBC 5.58 04/13/2016 RBC 2.72* 04/13/2016 HGB 9.0* 04/13/2016 HCT 26.2* 04/13/2016 MCV 96.3 04/13/2016 MCH 33.1 04/13/2016 MCHC 34.4 04/13/2016 RDW 47.7 04/13/2016 PLT 143* 04/13/2016 MPV 7.3 04/13/2016 DIFFTYPE AUTOMATED 04/13/2016 BMP: Lab Results Component Value Date NA 142 04/15/2016 K 3.4* 04/15/2016 CL 107 04/15/2016 CO2 25 04/15/2016 ANIONGAP 13 04/15/2016 GLUF 87 04/15/2016 BUN 9 04/15/2016 CREATININE 0.57 04/15/2016 BCR 16 04/15/2016 CA 7.1* 04/15/2016 EGFR >60 04/15/2016 PLAN 1. Discharge home Instructions given to patient: 1. Please refrain from drinking alcohol. Hopefully your liver will regenerate some off alco hol so as to avoid needing a transplant 2. Please see your family doctor in 1 week to follow up. You will need an MRI of your liver to evaluate a nodule found on ultrasound 3. Please take a low salt diet to avoid having fluid accumulate in your abdomen 4. Please take your medications as prescribed. They are ALL essential for your liver condit ion Disposition: Home Condition: Stable Code Status: Full Code Discharge Instructions Diet Low Sodium Activity as Tolerated Follow up: PERNELL Luo [address] [place] [address] Medication List START taking these medications rifaximin 550 MG Tabs QTY: 60 tablet Refills: 0 Commonly known as: XIFAXAN Take 1 tablet by mouth 2 (two) times daily. 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 lactulose 10 GM/15ML solution Refills: 0 Commonly known as: CHRONULAC magnesium oxide 400 MG tablet QTY: 14 tablet Refills: 0 Commonly known as: MAG-OX Take 1 tablet by mouth 2 (two) times daily. pantoprazole 40 MG tablet Refills: 0 Commonly known as: PROTONIX multivitamin & minerals w iron/FA 27-0.8 MG Tabs tablet QTY: 30 each Refills: 0 Take 1 tablet by mouth daily. spironolactone 25 MG tablet Refills: 0 Commonly known as: ALDACTONE thiamine 100 MG tablet QTY: 30 tablet Refills: 11 Commonly known as: VITAMIN B-1 Take 1 tablet by mouth daily. ursodiol 300 MG capsule Refills: 0 Commonly known as: ACTIGALL STOP taking these medications amLODIPine 5 MG tablet Commonly known as: NORVASC carvedilol 12.5 MG tablet Commonly known as: COREG LORazepam 0.5 MG tablet Commonly known as: ATIVAN potassium chloride 20 MEQ packet Commonly known as: KLOR-CON Where to Get Your Medications You can get these medications from any pharmacy Bring a paper prescription for each of these medications - furosemide 20 MG tablet - rifaximin 550 MG Tabs Discharge took 35 minutes, to include final examination, discussion of admission, and prepa ration of prescriptions, instructions for on-going care, follow-up and documentation of disc harge summary. Claude Dominique MD 04/17/2016 documented in this en counter Medications at Time of Discharge + + [...] documented as of this encounter Progress Notes Conversion Transaction, Provider Unknown - 04/17/2016 7:29 PM PSTFormatting of this note m ight be different from the original. Nurse Progress Note by Josie Tovar RN at 04/17/161928 Author: Josie Tovar RN Service: (none) Author Type: Registered Nurse Filed: 04/17/161931 Date of Service: 04/17/161928 Status: Signed Insurance Claims Processor: Josie Tovar RN (Registered Nurse) Patient discharge instructions discussed with patient and boyfriend. Patients states she un derstands and do not have questions at the time being. Patient being dressed with boyfriends assistance. Midline was removed, catheter intact. onver miriam Transaction, Provider Unknown - 04/17/2016 5:59 PM PST Nurse Progress Note by Josie Tovar RN at 04/17/16 1759 Author: Josie Tovar RN Service: (none) Author Type: Registered Nurse Filed: 04/17/16 1801 Date of Service: 04/17/161758 Status: Signed Insurance Claims Processor: Josie Tovar RN (Registered Nurse) Have called multiple family members regarding discharge, no answer or call back. onver miriam Transaction, Provider Unknown - 04/17/2016 3:10 PM PST Therapy Progress Note by ORLANDO Wright/April at 04/17/16 1510 Author: ORLANDO Wright/April Service: (none) Author Type: Occupational Therapist Filed: 04/17/16 1613 Date of Service: 04/17/16 1510 Status: Signed Insurance Claims Processor: ORLANDO Wright/April (Occupational Therapist) 04/17/16 1510 OT Last Visit OT Received On 04/17/16 Requires OT Follow Up No Other Comments Comments Per RN, pt discharging hospital this date. No need for skilled OT services at this time. Plan Progress Discontinue OT onver miriam Transaction, Provider Unknown - 04/17/2016 2:50 PM PST Nurse Progress Note by Josie Tovar RN at 04/17/16 1450 Author: Josie Tovar RN Service: (none) Author Type: Registered Nurse Filed: 04/17/16 1451 Date of Service: 04/17/16 1450 Status: Signed Insurance Claims Processor: Josie Tovar RN (Registered Nurse) Patient boyfriend called and said he would be picking up patient in 2-3hours. onver miriam Transaction, Provider Unknown - 04/17/2016 11:10 AM PST Case Management by Brian Lopez RN at 04/17/16 1110 Author: Brian Lopez RN Service: (none) Author Type: Registered Nurse Filed: 04/17/16 1112 Date of Service: 04/17/161109 Status: Signed Insurance Claims Processor: Brian Lopez RN (Registered Nurse) Shaila has been declined by [facility]. She now wants to discharge home with her sister. I let Irena at [facility] know that Shaila will discharge home. I also informed Bernadine the community health nurse at the [facility] and she will visit Shaila after she gets home. onver miriam Transaction, Provider Unknown - 04/17/2016 5:33 AM PST Nurse Progress Note by Paulina Todd RN at 04/17/16532 Author: Paulina Todd RN Service: (none) Author Type: Registered Nurse Filed: 04/17/1634 Date of Service: 04/17/16532 Status: Signed Insurance Claims Processor: Paulina Todd RN (Registered Nurse) Patient is more alert this shift. She has used call light appropriately. She has had 4 medi um loose/soft bowel movements. She is steady on her feet with SBA with four wheel walker. e has asked to see a CM today regarding some concerns about going home. New orders received this AM for Dilaudid PRN for pain. She has had burning pain in her legs. She received Dilaud id 1mg IV x 1 and it was effective. No other changes. onver miriam Transaction, Provider Unknown - 04/16/2016 5:29 PM PST Nurse Progress Note by Josie Tovar RN at 04/16/161728 Author: Josie Tovar RN Service: (none) Author Type: Registered Nurse Filed: 04/16/16 1733 Date of Service: 04/16/161728 Status: Signed Insurance Claims Processor: Josie Tovar RN (Registered Nurse) Patient still lethragic t/o shift, delayed response, forgetful at times and setting off bed alarm. Denies pain or SOB. Patient up today for shower. Compliant with all care. Patient sw itched to oral lasix, putting out sufficient urine amount. Will continue to monitor. upesh Dominique MD - 04/16/2016 7:45 AM PSTFormatting of this note might be different from the or iginal. Progress Notes by Claude Dominique MD at 04/16/16744 Author: Claude Dominique MD Service: Hospitalist Author Type: Physician Filed: 04/16/16746 Date of Service: 04/16/16744 Status: Signed Insurance Claims Processor: Claude Dominique MD (Physician) [facility] Service: Hospitalist Progress Note Hospital Day: LOS: 6 days Post-Op Day: * No surgery found * SUBJECTIVE Patient Summary: 45 yo female with known alcoholism, Cirrhosis, HTN admitted with asc ites, confusion and alcohol intoxication Subjective: Patient doing well. Breathing ok. Abdomen is not tense and apetite ok. Den ies any tremors or jerking of her extremities. Scheduled Medications eucerin Topical BID folic acid (FOLVITE) IVPB 1 mg Intravenous Q24H Or multivitamin & minerals w iron/FA 1 tablet Oral Q24H furosemide 40 mg Oral BID-Diuretics heparin (porcine) 5000 unit/0.5mL 5,000 Units Subcutaneous 2 times per day lactulose 20 g Oral 4x Daily lidocaine buffered 1% 0.5 mL Intradermal Once magnesium oxide 400 mg Oral BID pantoprazole 40 mg Oral QAM AC rifaximin 550 mg Oral BID sodium chloride (PF) 10 mL Intravenous Q8H sodium chloride 10 mL Intravenous Q8H sodium chloride 10 mL Intravenous 2 times per day spironolactone 100 mg Oral Daily spironolactone 25 mg Oral Daily ursodiol 300 mg Oral BID Continuous Infusions PRN Medications acetaminophen OR acetaminophen, ondansetron OR ondansetron, ondansetron OR onda nsetron, polyethylene glycol, polyethylene glycol, potassium chloride OR potassium chlor landon OR potassium chloride, sodium chloride OBJECTIVE Vital Signs: BP 95/53 mmHg | Pulse 98 | Temp(Src) 98.7 F (37.1 C) (Axillary) | Resp 16 | Ht 1.702 m (5' 7") | Wt 63.504 kg (140 lb) | BMI 21.92 kg/m2 | SpO2 100% | ? No Physical Exam Neck: No JVD present. Cardiovascular: Normal rate and regular rhythm. Exam reveals no friction rub. No murmur heard. Pulmonary/Chest: Effort normal and breath sounds normal. No respiratory distress. She has n o wheezes. Abdominal: Ascites appears to be about the same as yesterday, there is no tenderness. Musculoskeletal: She exhibits edema (no further edema today). Neurological: Alert, oriented x3 DATA CBC: Lab Results Component Value Date WBC 5.58 04/13/2016 RBC 2.72* 04/13/2016 HGB 9.0* 04/13/2016 HCT 26.2* 04/13/2016 MCV 96.3 04/13/2016 MCH 33.1 04/13/2016 MCHC 34.4 04/13/2016 RDW 47.7 04/13/2016 PLT 143* 04/13/2016 MPV 7.3 04/13/2016 DIFFTYPE AUTOMATED 04/13/2016 CMP: Lab Results Component Value Date NA 142 04/15/2016 K 3.4* 04/15/2016 CL 107 04/15/2016 CO2 25 04/15/2016 ANIONGAP 13 04/15/2016 GLUF 87 04/15/2016 BUN 9 04/15/2016 CREATININE 0.57 04/15/2016 BCR 16 04/15/2016 CA 7.1* 04/15/2016 PROT 5.2* 04/13/2016 ALB 1.5* 04/13/2016 GLOB 3.7 04/13/2016 BILITOT 0.8 04/13/2016 ALP 115 04/13/2016 AST 20 04/13/2016 ALT 11 04/13/2016 EGFR >60 04/15/2016 PROBLEM LIST Principal Problem: Acute hepatic encephalopathy (HCC) Active Problems: Alcohol abuse, continuous Hypomagnesemia Anemia, unspecified Blood alcohol level of 120-199 mg/100 ml Electrolyte and fluid disorders not elsewhere classified ASSESSMENT & PLAN 1) 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 MELD score calculates out to10 but has refractory ascites and als o advanced encephalopathy requiring combination therapy Discussed with sister at bedside and patient - will need 6 months abstinence from alcohol a nd liver transplant evaluation after that Consider liver MRI 2) Ascites s/p paracentesis with 3L removed on admission. I am stopping iv lasix today and switching to po 3) Hyperkalemia Resolved Avoid K supplementation as backing off on iv lasix and continuing aldactone 4) confusion 2/2 Hepatic encephalopathy Resolved Cont lactulose and xifaxan 5) Alcohol withdrawal Resolved 6) HTN Not on BP meds BP on the soft side probably 2/2 diuresis 7) Anemia and thrombocytopenia 2/2 splenomegaly/cirrhosis I do not see any indications transfusions at this time 8) DVT prophylaxis On heparin 9) Liver lesions will require outpatient imaging Prognosis is poor unless she stops drinking Plan to discharge to SNF tommorow Disposition: Code Status: Full Code Claude Dominique MD 04/16/2016 onversion Transactio n, Provider Unknown - 04/16/2016 1:35 AM PST Nurse Progress Note by Juan Ricardo RN at 04/16/16134 Author: Juan Ricardo RN Service: (none) Author Type: Registered Nurse Filed: 04/16/16135 Date of Service: 04/16/16134 Status: Signed Insurance Claims Processor: Juan Ricardo RN (Registered Nurse) Assumed patient care at 0045 from JAIME Monterroso. onver miriam Transaction, Provider Unknown - 04/15/2016 7:28 PM PST Progress Notes by Daphne Collins RN at 04/15/161927 Author: Daphne Collins RN Service: (none) Author Type: Registered Nurse Filed: 04/15/161933 Date of Service: 04/15/161927 Status: Addendum Insurance Claims Processor: Daphne Collins RN (Registered Nurse) Related Notes: Original Note by Daphne Collins RN (Registered Nurse) filed at 04/15/16 1931 VSS. Afebrile. Pt has been very drowsy, falling asleep while taking to her. Sister has been bedside most of day. Pt has not eaten much today and has not been ambulatory. APPRENTICE STYLIST reported hydrocodone bottle on bedside table, lead RN removed and took to pharmacy. Patient apparentl y reported a "stolen" check to [place] [employer]. They came to evaluate and check was tuc ked away on patients counter in room. Bedside report given to Angelica SANDOVAL. Daphne Collins RN su, C marci Crane MD - 04/15/2016 8:24 AM PSTFormatting of this note might be different from the or iginal. Progress Notes by Claude Dominique MD at 04/15/16823 Author: Claude Dominique MD Service: Hospitalist Author Type: Physician Filed: 04/15/16826 Date of Service: 04/15/16823 Status: Signed Insurance Claims Processor: Claude Dominique MD (Physician) [facility] Service: Hospitalist Progress Note Hospital Day: LOS: 5 days Post-Op Day: * No surgery found * SUBJECTIVE Patient Summary: 45 yo female with known alcoholism, Cirrhosis, HTN admitted with asc ites, confusion and alcohol intoxication Subjective: Patient is alert oriented today. No tremors or hallucinations. Fully orien magen. States her abdomen is not causing pain. Scheduled Medications eucerin Topical BID folic acid (FOLVITE) IVPB 1 mg Intravenous Q24H Or multivitamin & minerals w iron/FA 1 tablet Oral Q24H furosemide 40 mg Intravenous BID heparin (porcine) 5000 unit/0.5mL 5,000 Units Subcutaneous 2 times per day lactulose 20 g Oral 4x Daily lidocaine buffered 1% 0.5 mL Intradermal Once magnesium oxide 400 mg Oral BID pantoprazole 40 mg Oral QAM AC rifaximin 550 mg Oral BID sodium chloride (PF) 10 mL Intravenous Q8H sodium chloride 10 mL Intravenous Q8H sodium chloride 10 mL Intravenous 2 times per day spironolactone 100 mg Oral Daily ursodiol 300 mg Oral BID Continuous Infusions PRN Medications acetaminophen OR acetaminophen, ondansetron OR ondansetron, ondansetron OR onda nsetron, polyethylene glycol, polyethylene glycol, potassium chloride OR potassium chlor landon OR potassium chloride, sodium chloride OBJECTIVE Vital Signs: BP 125/62 mmHg | Pulse 104 | Temp(Src) 98.3 F (36.8 C) (Oral) | Resp 18 | Ht 1.702 m (5 ' 7") | Wt 63.504 kg (140 lb) | BMI 21.92 kg/m2 | SpO2 100% | ? No Physical Exam Neck: No JVD present. Cardiovascular: Normal rate and regular rhythm. Exam reveals no friction rub. No murmur heard. Pulmonary/Chest: Effort normal and breath sounds normal. No respiratory distress. She has n o wheezes. Abdominal: Ascites improved. Still has flank dullness however. Musculoskeletal: Edema: stable 1plus. Neurological: Alert, oriented x3 DATA CBC: Lab Results Component Value Date WBC 5.58 04/13/2016 RBC 2.72* 04/13/2016 HGB 9.0* 04/13/2016 HCT 26.2* 04/13/2016 MCV 96.3 04/13/2016 MCH 33.1 04/13/2016 MCHC 34.4 04/13/2016 RDW 47.7 04/13/2016 PLT 143* 04/13/2016 MPV 7.3 04/13/2016 DIFFTYPE AUTOMATED 04/13/2016 CMP: Lab Results Component Value Date NA 136 04/14/2016 K 5.6* 04/14/2016 CL 102 04/14/2016 CO2 24 04/14/2016 ANIONGAP 16 04/14/2016 GLUF 79 04/14/2016 BUN 7* 04/14/2016 CREATININE 0.58 04/14/2016 BCR 12 04/14/2016 CA 7.4* 04/14/2016 PROT 5.2* 04/13/2016 ALB 1.5* 04/13/2016 GLOB 3.7 04/13/2016 BILITOT 0.8 04/13/2016 ALP 115 04/13/2016 AST 20 04/13/2016 ALT 11 04/13/2016 EGFR >60 04/14/2016 PROBLEM LIST Principal Problem: Acute hepatic encephalopathy (HCC) Active Problems: Alcohol abuse, continuous Hypomagnesemia Anemia, unspecified Blood alcohol level of 120-199 mg/100 ml Electrolyte and fluid disorders not elsewhere classified ASSESSMENT & PLAN 1) 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 MELD score calculates out to10 but has refractory ascites and als o advanced encephalopathy requiring combination therapy Discussed with sister at bedside and patient - will need 6 months abstinence from alcohol a nd liver transplant evaluation after that Consider liver MRI 2) Ascites s/p paracentesis with 3L removed on admission. Cont diuresis Await labs- consider restarting aldactone Cont iv lasix another day 3) Hyperkalemia Await labs 4) confusion 2/2 Hepatic encephalopathy Resolved Cont lactulose and xifaxan 5) Alcohol withdrawal Resolved 6) HTN Not on BP meds 7) Anemia and thrombocytopenia 2/2 splenomegaly/cirrhosis I do not see any indications transfusions at this time 8) DVT prophylaxis On heparin 9) Liver lesions will require outpatient imaging Prognosis is poor unless she stops drinking Disposition: Code Status: Full Code Claude Dominique MD 04/15/2016 onversion Transactio n, Provider Unknown - 04/15/2016 4:38 AM PST Nurse Progress Note by Chadwick Murdock RN at 04/15/16437 Author: Chadwick Murdock RN Service: (none) Author Type: Registered Nurse Filed: 04/15/16446 Date of Service: 04/15/16437 Status: Signed Insurance Claims Processor: Chadwick Murdock RN (Registered Nurse) Pt has been oriented x3, has been more alert tonight. Still unsteady 1PA to bedside commode . VSS, no need for valium as CIWA scores have been 2 or less .Will continue to monitor. Penelope Murdock RN. onver miriam Transaction, Provider Unknown - 04/14/2016 4:10 PM PST Therapy Progress Note by Vandana Ferguson PT at 04/14/16 1610 Author: Vandana Ferguson PT Service: (none) Author Type: Physical Therapist Filed: 04/14/16 1657 Date of Service: 04/14/16 1610 Status: Signed Insurance Claims Processor: Vandana Ferguson PT (Physical Therapist) 04/14/16 1610 PT Last Visit PT Received On 04/14/16 Reason for Treatment Deconditioning Requires PT Follow Up Yes Follow up PT Only? No Assistance Required 1 person Precautions Other Precautions fall risk Other Comments Comments Pt fatigued after just having shower, but willing to participate with PT. Pt very slow moving with all mobililty. During ambulation, pt had 2 LOB requiring Leo to correct. Pt required multiple verbal cues for safe use of 4WW and would likely do better with FWW. Cognition Overall Cognitive Status WFL Orientation Level Oriented (very slow to respond to questions) Bed Mobility Supine to Sit Standby assist Sit to Supine Standby assist Transfers Sit to/from Stand Standby assist Mobility Ambulation Assistance Minimal assist Maximal Ambulation Distance (feet) 40 Total Ambulation Distance (feet) 80 Distance limited by? Patient's ability Pattern Decreased brigitte;Right swing foot doesn't pass stance foot;Left swing foot doesn't pass stance foot Assistive Device Walker 4 wheeled Seated Seated-Exercise Type Ankle pumps;Seated marching;Long arc quads;Heel raises Seated-Exercise Comments 3x10 reps Activity Tolerance Activity Tolerance Patient limited by fatigue;Treatment limited secondary to medical compli cations Nurse Made Aware yes Safety Devices Safety Devices in Place (call light in reach. Bed alarm on) Plan Treatment/Interventions Continue per Primary PT POC Progress Progressing toward goals Recommendation Recommendations Home Assist Barriers to Discharge Physical Deficits Impacting Functional Gosper;Self-care Deficit s Impacting Functional Gosper onver miriam Rangel Provider Unknown - 04/14/2016 4:07 PM PST Case Management by HANNAH Winchester at 04/14/16 1607 Author: HANNAH Winchester Service: (none) Author Type: Certified Coatings Inspector Filed: 04/14/16 1619 Date of Service: 04/14/16 1607 Status: Signed Insurance Claims Processor: HANNAH Winchester (Certified Coatings Inspector) KAMILAH-HEAD TENNIS PROFESSIONAL spoke with patient at length about etoh use and treatment/supports as options. Revi ewed the resource list provided by the Behavioral Health Specialist yesterday. Patient reports, "I can stop (drinking) as long as it isn't around me." She has four children (three adults and one youth living in [place]; not employed and desc ribed herself as disabled; has spent a majority of her life in [facility]; uses [facility], however, is affiliated with the [facility]; has family living in [facility] but is not aware of where exactly. She lives with her sister in [place], [place]. History has shown that patient's family members are also reportedly involved with etoh abus e and inevitably patient is surrounded/influenced by these behaviors. onver miriam Transaction, Provider Unknown - 04/14/2016 2:24 PM PST Progress Notes by Barbara Bojorquez RD at 04/14/16 1423 Author: Barbara Bojorquez RD Service: (none) Author Type: Registered Dietitian Filed: 04/14/161423 Date of Service: 04/14/161423 Status: Signed Insurance Claims Processor: Barbara Bojorquez RD (Registered Dietitian) 04/14/16 1416 Subjective Timepoint Follow up (M/H risk) Pt c/o Pt s/p paracentesis with 4700 ml fluid removed. Reported by RN Fluid / Beverage Intake Oral Fluids Amount Fluids ad mac. Food Intake Amount of Food No intake charted today. Per charting pt had on 04/13: B25%, L100%; 04/11: B100% , L100%. Type of Food / Meals General diet Micronutrient Intake Vitamin Intake Folate Mineral / Element Intake Magnesium Nutrition-Focused Physical Findings Overall Appearance Jaundice Extremities, Muscles and Bones Edema noted. Anthropometrics Weight change Wt is down 23.1 kg since admit. Per I/O's pt is 111 ml fluid negative. Pt s/p paracentesis. Edema noted. Lasix ordered. Continue to monitor wt trend. Biochemical data, medical tests, and procedures reviewed Biochemical data, medical tests, and procedures reviewed K 5.6 (H), BUN 7 (L), Mg 1.1 (L)- Mg ordered. Recommendations Recommended energy needs General diet as ordered. Send Boost Pudding BID at morning and mid -afternoon snack times. Encourage po intake. Monitor and follow as indicated. Nutritional Risk Nutritional risk Moderate / high Follow up date 04/18/[address] onjuice pineda Transaction, Provider Unknown - 04/14/2016 1:16 PM PST Case Management by Brian Lopez RN at 04/14/16 1316 Author: Brian Lopez RN Service: (none) Author Type: Registered Nurse Filed: 04/14/16 1447 Date of Service: 04/14/16 1316 Status: Addendum Insurance Claims Processor: Brian Lopez RN (Registered Nurse) Related Notes: Original Note by Brian Lopez RN (Registered Nurse) filed at 04/14/16 13 20 Shaila wants [facility] for SNF after discharge but did agree to have me send a referral to [facility]. I spoke with Bernadine at [facility] about dc planning for Shaila and she asked that we f ax [phone] SNF orders to them so they can have the iqugmiut cover part of the SNF cost. Shaila has been accepted at [facility] but they wont be able to transport if she discharges over the weekend and they will not accept her if family transports. Rupesh Wheatley MD - 04/14/2016 10:44 AM PSTFormatting of this note might be different from the or iginal. Progress Notes by Claude Dominique MD at 04/14/16 1041 Author: Claude Dominique MD Service: Hospitalist Author Type: Physician Filed: 04/14/16 1049 Date of Service: 04/14/16 104 Status: Signed Insurance Claims Processor: Claude Dominique MD (Physician) [facility] Service: Hospitalist Progress Note Hospital Day: LOS: 4 days Post-Op Day: * No surgery found * SUBJECTIVE Patient Summary: 45 yo female with known alcoholism, Cirrhosis, HTN admitted with asc ites, confusion and alcohol intoxication Subjective: Drowsy and not fully oriented. No further tremors. No myoclonus. Complaini ng of edema and pain LE Scheduled Medications eucerin Topical BID folic acid (FOLVITE) IVPB 1 mg Intravenous Q24H Or multivitamin & minerals w iron/FA 1 tablet Oral Q24H furosemide 40 mg Intravenous BID heparin (porcine) 5000 unit/0.5mL 5,000 Units Subcutaneous 2 times per day hydrALAZINE 10 mg Oral TID lactulose 20 g Oral 4x Daily lidocaine buffered 1% 0.5 mL Intradermal Once magnesium oxide 400 mg Oral BID magnesium sulfate 2 g Intravenous Once pantoprazole 40 mg Oral QAM AC rifaximin 550 mg Oral BID sodium chloride (PF) 10 mL Intravenous Q8H sodium chloride 10 mL Intravenous Q8H sodium chloride 10 mL Intravenous 2 times per day spironolactone 100 mg Oral Daily ursodiol 300 mg Oral BID Continuous Infusions PRN Medications acetaminophen OR acetaminophen, diazepam, diazepam OR diazepam, ondansetron OR ondansetron, ondansetron OR ondansetron, polyethylene glycol, polyethylene glycol, potas sium chloride OR potassium chloride OR potassium chloride, sodium chloride OBJECTIVE Vital Signs: BP 109/58 mmHg | Pulse 100 | Temp(Src) 99.1 F (37.3 C) (Oral) | Resp 20 | Ht 1.702 m (5 ' 7") | Wt 63.504 kg (140 lb) | BMI 21.92 kg/m2 | SpO2 97% | ? No Physical Exam Neck: No JVD present. Cardiovascular: Normal rate and regular rhythm. Exam reveals no friction rub. No murmur heard. Pulmonary/Chest: Effort normal and breath sounds normal. No respiratory distress. She has n o wheezes. Abdominal: Ascites improved. Still has flank dullness however. Musculoskeletal: She exhibits edema. Neurological: Drowsy, oriented to person and place only. No myoclonus or asterixis No opthalmoplegia DATA CBC: Lab Results Component Value Date WBC 5.58 04/13/2016 RBC 2.72* 04/13/2016 HGB 9.0* 04/13/2016 HCT 26.2* 04/13/2016 MCV 96.3 04/13/2016 MCH 33.1 04/13/2016 MCHC 34.4 04/13/2016 RDW 47.7 04/13/2016 PLT 143* 04/13/2016 MPV 7.3 04/13/2016 DIFFTYPE AUTOMATED 04/13/2016 CMP: Lab Results Component Value Date NA 136 04/14/2016 K 5.6* 04/14/2016 CL 102 04/14/2016 CO2 24 04/14/2016 ANIONGAP 16 04/14/2016 GLUF 79 04/14/2016 BUN 7* 04/14/2016 CREATININE 0.58 04/14/2016 BCR 12 04/14/2016 CA 7.4* 04/14/2016 PROT 5.2* 04/13/2016 ALB 1.5* 04/13/2016 GLOB 3.7 04/13/2016 BILITOT 0.8 04/13/2016 ALP 115 04/13/2016 AST 20 04/13/2016 ALT 11 04/13/2016 EGFR >60 04/14/2016 PROBLEM LIST Principal Problem: Acute hepatic encephalopathy (HCC) Active Problems: Alcohol abuse, continuous Hypomagnesemia Anemia, unspecified Blood alcohol level of 120-199 mg/100 ml Electrolyte and fluid disorders not elsewhere classified ASSESSMENT & PLAN 1) 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 MELD score calculates out to10. Continues to drink however. No ev idence for acute alcoholic hepatitis at this time clinically. 2) Ascites s/p paracentesis with 3L removed on admission. Cont diuresis 3) Hyperkalemia DC kcl and hold aldactone Cont with IV lasix 4) confusion 2/2 Hepatic encephalopathy On Lactulose and xifaxan Ammonia levels are improving Continue with thiamine but no signs of wernicke's 5) Alcohol withdrawal Resolved DC valium and hopefully MS will improve 6) HTN Hold hydralazine given soft Bps 7) Anemia and thrombocytopenia 2/2 splenomegaly/cirrhosis I do not see any indications transfusions at this time 8) DVT prophylaxis On heparin 9) Liver lesions will require outpatient imaging Prognosis is poor unless she stops drinking Disposition: Code Status: Full Code Claude Dominique MD 04/14/2016 onversion Transactio n, Provider Unknown - 04/14/2016 3:50 AM PST Nurse Progress Note by Chadwick Murdock RN at 04/14/16 0350 Author: Chadwick Murdock RN Service: (none) Author Type: Registered Nurse Filed: 04/14/16 0351 Date of Service: 04/14/16 0350 Status: Signed Insurance Claims Processor: Chadwick Murdock RN (Registered Nurse) Pt has been oriented to person and place, but still rather confused. CIWA score has been 0 -2, no valium has been given. Other than that no acute changes from previous assessment. Nicole l continue to monitor. Chadwick Murdock RN. onver miriam Transaction, Provider Unknown - 04/13/2016 5:36 PM PST Nurse Progress Note by Ella Menjivar RN at 04/13/16 1736 Author: Ella Menjivar RN Service: (none) Author Type: Registered Nurse Filed: 04/13/16 1743 Date of Service: 04/13/16 1736 Status: Signed Insurance Claims Processor: Ella Menjivar RN (Registered Nurse) Pt slept most of shift, in am CIWA score was 2-4, pt medicated with 5mg PO valium. CIWA sco re returned to 0 after medication. Pt tolerated paracentisis well, 4.7L removed. Pt took mor hang dose of lactulose, others were held d/t loose stool. Joyce Menjivar RN 04/13/2016 onver miriam Transaction, Provider Unknown - 04/13/2016 12:50 PM PST Case Management by HANNAH Shelton at 04/13/16 1250 Author: HANNAH Shelton Service: Emergency Department Author Type: Certified Coatings Inspector Filed: 04/13/16 1309 Date of Service: 04/13/16 1250 Status: Signed Insurance Claims Processor: HANNAH Shelton (Certified Coatings Inspector) Behavioral Health Specialist (BHS) spoke with patient briefly as patient was very groggy an d barely able to respond. Resource list was left for ETOH services near [place], [place]. onver miriam Transaction, Provider Unknown - 04/13/2016 8:55 AM PST Therapy Progress Note by Aure Stewart PTA at 04/13/16 0855 Author: Aure Stewart PTA Service: (none) Author Type: Cracking Still Operator Filed: 04/13/16 1042 Date of Service: 04/13/16 0855 Status: Signed Insurance Claims Processor: Arue Stewart PTA (Cracking Still Operator) 04/13/16 0855 PT Last Visit PT Received On 04/13/16 Reason for Treatment Deconditioning Requires PT Follow Up Yes Follow up PT Only? No Assistance Required 1 person Precautions Other Precautions fall risk; contact precautions D/T lice (hair bonnet required) Other Comments Comments Pt presented to tx supine in bed; agreeable to PT. Pt transferred supine -> sit wi th SBA. She asked for a diaper (adult brief) prior to exiting bed; shortly thereafter statin g that she needed to use BR/BSC. BSC was placed at bedside & pt transferred with SBA. She re quired assist for pericare. She then performed ambulation in room with 4WW. Therapist bin sariah the brake system of 4WW to pt. Pt ambulated 40'x2 with SBA. She then performed therex se ated at EOB. Pt was instructed to scoot toward HOB to be in a better position upon returning to supine. She returned to supine after therex. Pt left supine in bed with call light withi n reach. Cognition Overall Cognitive Status WFL Orientation Level Oriented Bed Mobility Supine to Sit Standby assist Sit to Supine Standby assist Transfers Sit to/from Stand Standby assist Mobility Ambulation Assistance Standby assist Maximal Ambulation Distance (feet) 40'x2 Total Ambulation Distance (feet) 80' Distance limited by? Patient's ability Pattern Alternating;Decreased brigitte Assistive Device Walker 4 wheeled Seated Seated-Exercise Type Seated marching;Long arc quads;Toe raises;Heel raises Seated-Exercise Comments x10-20 reps, bilat Activity Tolerance Activity Tolerance Patient limited by fatigue Nurse Made Aware JAIME Cook aware Plan Treatment/Interventions Continue per Primary PT POC Progress Progressing toward goals Recommendation Recommendations Home Assist;HH PT PT recommendations were discussed and verified with supervising PT. Rupesh Wheatley MD - 04/13/2016 8:15 AM PSTFormatting of this note might be different from the or iginal. Progress Notes by Claude Dominique MD at 04/13/16814 Author: Claude Dominique MD Service: Hospitalist Author Type: Physician Filed: 04/13/16819 Date of Service: 04/13/16814 Status: Signed Insurance Claims Processor: Claude Dominique MD (Physician) [facility] Service: Hospitalist Progress Note Hospital Day: LOS: 3 days Post-Op Day: * No surgery found * SUBJECTIVE Patient Summary: 45 yo female with known alcoholism, Cirrhosis, HTN admitted with asc ites, confusion and alcohol intoxication Subjective: CIWA scores have improved but she is still not fully oriented. She thought she had a paracentesis yesterday but the procedure is actually planned for today. She also thinks her family is in the room but they are not. Scheduled Medications chlordiazePOXIDE 10 mg Oral TID folic acid (FOLVITE) IVPB 1 mg Intravenous Q24H Or multivitamin & minerals w iron/FA 1 tablet Oral Q24H furosemide 40 mg Oral Daily heparin (porcine) 5000 unit/0.5mL 5,000 Units Subcutaneous 2 times per day hydrALAZINE 10 mg Oral TID lactulose 20 g Oral 4x Daily lidocaine buffered 1% 0.5 mL Intradermal Once magnesium oxide 400 mg Oral BID pantoprazole 40 mg Oral QAM AC potassium chloride 20 mEq Oral Daily rifaximin 550 mg Oral BID sodium chloride (PF) 10 mL Intravenous Q8H sodium chloride 10 mL Intravenous Q8H sodium chloride 10 mL Intravenous 2 times per day spironolactone 100 mg Oral Daily thiamine (VITAMIN B1) IVPB 100 mg Intravenous Q24H Or thiamine 100 mg Oral Q24H ursodiol 300 mg Oral BID Continuous Infusions PRN Medications acetaminophen OR acetaminophen, diazepam, diazepam OR diazepam, ondansetron OR ondansetron, ondansetron OR ondansetron, polyethylene glycol, polyethylene glycol, potas sium chloride OR potassium chloride OR potassium chloride, sodium chloride OBJECTIVE Vital Signs: BP 128/62 mmHg | Pulse 95 | Temp(Src) 98 F (36.7 C) (Oral) | Resp 22 | Ht 1.702 m (5' 7 ") | Wt 75.5 kg (166 lb 7.2 oz) | BMI 26.06 kg/m2 | SpO2 98% | ? No Physical Exam Neck: No JVD present. Cardiovascular: Normal rate and regular rhythm. Exam reveals no friction rub. No murmur heard. Pulmonary/Chest: Effort normal and breath sounds normal. No respiratory distress. She has n o wheezes. Abdominal: Ascites noted - About the same as yesterday. No rebound or guarding. Tense Musculoskeletal: She exhibits edema. Neurological: Drowsy, oriented to person and place only. No myoclonus or asterixis DATA CBC: Lab Results Component Value Date WBC 4.27 04/11/2016 RBC 2.50* 04/11/2016 HGB 8.2* 04/11/2016 HCT 24.1* 04/11/2016 MCV 96.4 04/11/2016 MCH 33.0 04/11/2016 MCHC 34.2 04/11/2016 RDW 47.7 04/11/2016 PLT 90* 04/11/2016 MPV 7.4 04/11/2016 DIFFTYPE AUTOMATED 04/11/2016 CMP: Lab Results Component Value Date NA 140 04/12/2016 K 3.8 04/12/2016 CL 105 04/12/2016 CO2 25 04/12/2016 ANIONGAP 14 04/12/2016 GLUF 94 04/12/2016 BUN 3* 04/12/2016 CREATININE 0.5 04/12/2016 BCR 6 04/12/2016 CA 8.0* 04/12/2016 PROT 5.7* 04/12/2016 ALB 1.7* 04/12/2016 GLOB 4.0 04/12/2016 BILITOT 0.6 04/12/2016 ALP 153* 04/12/2016 AST 22 04/12/2016 ALT 13 04/12/2016 EGFR >60 04/12/2016 PROBLEM LIST Principal Problem: Acute hepatic encephalopathy (HCC) Active Problems: Alcohol abuse, continuous Hypomagnesemia Anemia, unspecified Blood alcohol level of 120-199 mg/100 ml Electrolyte and fluid disorders not elsewhere classified ASSESSMENT & PLAN 1) 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 MELD score calculates out to10. Continues to drink however. No ev idence for acute alcoholic hepatitis at this time clinically. 2) Ascites s/p paracentesis with 3L removed on admission. Repeat paracentesis ordered Increase lasix dose Albumin x50g post paracentesis 3) confusion 2/2 Hepatic encephalopathy On Lactulose Added xifaxan yesterday Will check TSh and B12, and increase thiamine supplementation to 200 bid 4) Alcohol withdrawal DC librium as CIWA scores are decreasing 5) HTN Currently on hydralazine Off Coreg due to refractory ascites 6) Anemia and thrombocytopenia 2/2 splenomegaly/cirrhosis I do not see any indications transfusions at this time 7) DVT prophylaxis On heparin 8) Liver lesions will require outpatient imaging Prognosis is poor unless she stops drinking Disposition: Code Status: Full Code Claude Dominique MD 04/13/2016 onversion Transactio n, Provider Unknown - 04/12/2016 2:54 PM PST Case Management by HANNAH Santiago at 04/12/161453 Author: HANNAH Santiago Service: (none) Author Type: Certified Coatings Inspector Filed: 04/12/161453 Date of Service: 04/12/161453 Status: Signed Insurance Claims Processor: HANNAH Santiago (Certified Coatings Inspector) Pt referred to Behavioral Health Specialist Merari Hernandez for ETOH resources. su, Rupesh Crane MD - 04/12/2016 8:32 AM PSTFormatting of this note might be different from the or iginal. Progress Notes by Claude Dominique MD at 04/12/16831 Author: Claude Dominique MD Service: Hospitalist Author Type: Physician Filed: 04/12/16 0843 Date of Service: 04/12/16831 Status: Addendum Insurance Claims Processor: Claude Dominique MD (Physician) Related Notes: Original Note by Claude Dominique MD (Physician) filed at 04/12/16 0837 [facility] Service: Hospitalist Progress Note Hospital Day: LOS: 2 days Post-Op Day: * No surgery found * SUBJECTIVE Patient Summary: 45 yo female with known alcoholism, Cirrhosis, HTN admitted with asc ites, confusion and alcohol intoxication Subjective: More alert today but somewhat disoriented. Not as tremulous as yesterday. Complaining of abdominal pain and distention and definitely has more ascites even as I walke d into the room. Scheduled Medications carvedilol 12.5 mg Oral BID WC chlordiazePOXIDE 10 mg Oral TID folic acid (FOLVITE) IVPB 1 mg Intravenous Q24H Or multivitamin & minerals w iron/FA 1 tablet Oral Q24H furosemide 40 mg Oral Daily heparin (porcine) 5000 unit/0.5mL 5,000 Units Subcutaneous 2 times per day lactulose 20 g Oral 4x Daily magnesium oxide 400 mg Oral BID pantoprazole 40 mg Oral QAM AC potassium chloride 20 mEq Oral Daily rifaximin 550 mg Oral BID sodium chloride (PF) 10 mL Intravenous Q8H sodium chloride 10 mL Intravenous Q8H spironolactone 100 mg Oral Daily thiamine (VITAMIN B1) IVPB 100 mg Intravenous Q24H Or thiamine 100 mg Oral Q24H ursodiol 300 mg Oral BID Continuous Infusions PRN Medications acetaminophen OR acetaminophen, diazepam, diazepam OR diazepam, ondansetron OR ondansetron, ondansetron OR ondansetron, polyethylene glycol, polyethylene glycol, potas sium chloride OR potassium chloride OR potassium chloride OBJECTIVE Vital Signs: BP 117/56 mmHg | Pulse 97 | Temp(Src) 98.3 F (36.8 C) (Oral) | Resp 20 | Ht 1.702 m (5' 7") | Wt 76.5 kg (168 lb 10.4 oz) | BMI 26.41 kg/m2 | SpO2 97% | ? No Physical Exam Cardiovascular: Normal rate and regular rhythm. Exam reveals no friction rub. No murmur heard. Pulmonary/Chest: Effort normal and breath sounds normal. No respiratory distress. She has n o wheezes. Abdominal: Ascites noted - much worsened. Very tense Neurological: Drowsy, oriented to person and place only. No myoclonus or asterixis DATA CBC: Lab Results Component Value Date WBC 4.27 04/11/2016 RBC 2.50* 04/11/2016 HGB 8.2* 04/11/2016 HCT 24.1* 04/11/2016 MCV 96.4 04/11/2016 MCH 33.0 04/11/2016 MCHC 34.2 04/11/2016 RDW 47.7 04/11/2016 PLT 90* 04/11/2016 MPV 7.4 04/11/2016 DIFFTYPE AUTOMATED 04/11/2016 CMP: Lab Results Component Value Date NA 139 04/11/2016 K 3.6 04/11/2016 CL 105 04/11/2016 CO2 22* 04/11/2016 ANIONGAP 15 04/11/2016 GLUF 89 04/11/2016 BUN 3* 04/11/2016 CREATININE 0.43* 04/11/2016 BCR 8 04/11/2016 CA 7.2* 04/11/2016 PROT 5.3* 04/11/2016 ALB 1.6* 04/11/2016 GLOB 3.6 04/11/2016 BILITOT 1.3 04/11/2016 ALP 123* 04/11/2016 AST 24 04/11/2016 ALT 12 04/11/2016 EGFR >60 04/11/2016 PROBLEM LIST Principal Problem: Acute hepatic encephalopathy (HCC) Active Problems: Alcohol abuse, continuous Hypomagnesemia Anemia, unspecified Blood alcohol level of 120-199 mg/100 ml Electrolyte and fluid disorders not elsewhere classified ASSESSMENT & PLAN 1) 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 MELD score calculates out to10. Continues to drink however. No ev idence for acute alcoholic hepatitis at this time clinically. 2) Ascites s/p paracentesis with 3L removed on admission. On Lasix and aldactrone However, has refractory ascites Will repeat therapeutic paracentesis 3) Hepatic encephalopathy On Lactulose Added xifaxan yesterday 4) Alcohol withdrawal Cont with CIWA protocol and thiamine replacement Increase librium as CIWA is still quite high this am at 13 5) HTN DC coreg given poor outcomes in the subpopulation of cirrhotics with refractory ascites 6) Anemia and thrombocytopenia 2/2 splenomegaly/cirrhosis I do not see any indicatrions transfusions at this time 7) DVT prophylaxis On heparin 8) Liver lesions will require outpatient imaging Prognosis is poor I spent some time explaining the need for absolute alcohol cessation. Disposition: Code Status: Full Code Claude Dominique MD 04/12/2016 onversion Transactio n, Provider Unknown - 04/12/2016 6:45 AM PST Nurse Progress Note by Concetta Vides RN at 04/12/16 0645 Author: Concetta Vides RN Service: (none) Author Type: Registered Nurse Filed: 04/12/16 0648 Date of Service: 04/12/16 0645 Status: Signed Insurance Claims Processor: Concetta Vides RN (Registered Nurse) A/O, VSS, Afebrile. Pt CIWA stayed between 5-9. Diazepam given x4. Had multiple loose stool s due to lactulose. onver miriam Transaction, Provider Unknown - 04/11/2016 4:45 PM PST Therapy Progress Note by Erica Diaz PT at 04/11/16 1645 Author: Erica Diaz PT Service: (none) Author Type: Physical Therapist Filed: 04/11/16 1800 Date of Service: 04/11/16 1645 Status: Signed Insurance Claims Processor: Erica Diaz PT (Physical Therapist) 04/11/16 1645 PT Last Visit PT Received On 04/11/16 Reason for Treatment Deconditioning Requires PT Follow Up Yes Follow up PT Only? No Assistance Required 1 person Fund Accounting Manager Needed No Precautions Other Precautions falls Other Comments Comments Pt in bed upon PT arrival, pt agreeable to participate in therapy this PM, request ing assistance to BR. Pt appearing very tremulous throughout session. Pt with difficulty com pleting bed mobility and needing modA to arise to sitting EOB. Pt needing a brief sitting br eak prior to ambulating to BR. Pt stood at bedside, using 4WW for support, however, once sta nding, pt turned around to sit in seat of 4WW and was wanting to roll herself into the BR- P T explained safety concerns regarding use of walker in this fashion and instead encouraged u se of BSC if pt did not feel she could ambulate to BR safely. Pt was assisted onto BSC, need ing modA for lower descent onto lower surface height. Extra time and assistance needed throu ghout remainder of session (pt had been given lactulose and with runny/uncontrolled BM) and required multiple attempts to finish voiding and for meaghan care, brief change, cleaning floor , etc. Once pt finished on BSC, she was assisted back to bed and positioned for comfort- all needs met and within reach when PT left. Pt limited by significant fatigue at this time. Cognition Overall Cognitive Status WFL Orientation Level Oriented Bed Mobility Supine to Sit Mod assist (BLEs OOB or trunk to upright) Sit to Supine Mod assist (BLEs into bed or trunk to lower) Transfers Sit to/from Stand Minimal assist (steadying/contact guard) Bed to/from Chair Minimal assist (steadying/contact guard) Mobility Ambulation Assistance ANDREW;Safety concerns Modalities Modalities Other therapy Other Therapy Education on importance of daily mobility and trying to mobilize more frequen tly throughout the day. Activity Tolerance Activity Tolerance Patient limited by fatigue Nurse Made Aware Yes Safety Devices Safety Devices in Place (Call light in reach) Restraints Initially in Place No Plan Treatment/Interventions Continue per Primary PT POC Progress Slow progress, decreased activity tolerance Recommendation Recommendations Home Assist;HH PT Barriers to Discharge Physical Deficits Impacting Functional Gosper;Self-care Deficit s Impacting Functional Gosper onver miriam Transaction, Provider Unknown - 04/11/2016 4:26 PM PST Nurse Progress Note by Ana Brooks RN at 04/11/16 8630 Author: Ana Brooks RN Service: (none) Author Type: Registered Nurse Filed: 04/11/16 9043 Date of Service: 04/11/16 6869 Status: Signed Insurance Claims Processor: Ana Brooks RN (Registered Nurse) A/O, VSS, Afebrile. Pt CIWA stayed between 4-7. Had multiple stools due to lactulose. A can sariah beer was found hidden in patient brief, it was unopened. Pt was educated on alcohol use for her current state. Security was called and beer was sent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 the past but she cannot remember how long a go her fall was. Pt sees her PCP at the [facility]. She states that the PCP listed on the facesheet is incorrect, but she cannot recall her Doctor's name. Patient's PCP is: Efra Holguin Patient's [place]: [place], [facility] Coverage concerns: Medication coverage/concerns: Community resources utilized / needed: Assistance in transportation: SO Identification of any specific education / training: Pt would benefit from substance use di sorder (JARED) treatment Barriers to Discharge / Alternative housing needed: none identified at this time Anticipated DCP: Home, SO to transport and assist lg Dc docume nted in this encounter H&P Notes Sravanthi Brooks - 04/09/2016 9:28 PM PST H&P by Sravanthi Brooks MD at 04/09/162127 Author: Sravanthi Brooks MD Service: (none) Author Type: Physician Filed: 04/09/162212 Date of Service: 04/09/162127 Status: Signed Insurance Claims Processor: Sravanthi Brooks MD (Physician) [facility] Service: Hospitalist Admission History & Physical Date of Admission: 04/09/2016 Requesting Physician: Dr. Morrow ED Physician, Reason for Admission: Acute hepatic encephalopathy, History Obtained From: patient and ED physician CHIEF COMPLAINT: Confusion and ascites with alcohol abuse in a patient with known cirrhosi s and h/o hepatic encephalopathy HISTORY OF PRESENT ILLNESS The patient is 45 y.o. female with significant past medical history of alcohol abuse and re use, cirrhosis due to alcohol, anemia, h/o GI bleed and seizures who presents with alcohol i ntoxication, confusion and enlarged ascites. Patient is awake but sleepy and ammonia level is 92 with alcohol level of 178 and low magnesium. In the ED a paracentesis was performed a nd sent for culture and labs. She was started on magnesium replacement and lactulose as wel l as Banana bag. No antibiotics for SBE were begun and we await labs. REVIEW OF SYSTEMS Review of Systems Constitutional: Positive for activity change and unexpected weight change. Weight gain and patient thinks from around 165 lbs to 190. HENT: Negative. Eyes: Negative. Respiratory: Negative. Cardiovascular: Positive for leg swelling. Endocrine: Negative. Genitourinary: Negative. Musculoskeletal: Negative. Skin: Negative. Allergic/Immunologic: Negative. Neurological: Positive for tremors, speech difficulty and weakness. Hematological: Negative. Psychiatric/Behavioral: Positive for confusion, dysphoric mood and decreased concentration. Negative for suicidal ideas, hallucinations and self-injury. The patient is not hyperactive . Past Medical History Diagnosis Date Hemorrhage of gastrointestinal tract, unspecified Liver disease Hypertension Anemia Seizures (HCC) Past Surgical History Procedure Laterality Date Hx of tracheostomy Esophagogastroduodenoscopy N/A 07/30/2011 Procedure: ESOPHAGOGASTRODUODENOSCOPY; Surgeon: Mitchell Stewart IV, MD; Location: [facility]; Service: Gastroenterology; Laterality: N/A; anesthesia assist if available since may be difficult to sedate Back surgery Allergies Allergen Reactions Aspirin Anaphylaxis Pt unable to recall, this information came from [facility] record Lactose Anaphylaxis Pt unable to recall, this information came from [facility] record Ciprofloxacin Other (See Comments) Pt. Unable to recall, this information came from [facility] record Ibuprofen Other (See Comments) Pt. Unable to recall, this information came from [facility] record (Not in a hospital admission) No family history on file. SOCIAL HISTORY Patient lives with her aunt She denies smoking PHYSICAL EXAM Vital Signs: BP 146/86 mmHg | Pulse 115 | Temp(Src) 98.5 F (36.9 C) (Temporal) | Resp 18 | Wt 86.6 k g (190 lb 14.7 oz) | SpO2 99% Physical Exam Constitutional: She is oriented to person, place, and time. She appears well-developed. No distress. HENT: Head: Normocephalic and atraumatic. Mouth/Throat: Oropharynx is clear and moist. Minor lip contusion left lower lip and not fresh Eyes: EOM are normal. Pupils are equal, round, and reactive to light. Neck: Normal range of motion. Neck supple. Cardiovascular: Regular rhythm. Exam reveals gallop. Mild gallop or tachycardia Pulmonary/Chest: Effort normal and breath sounds normal. No respiratory distress. She has n o wheezes. Abdomina/Gl: Distended and soft, BS present all 4 quadrants Obvious ascites Generalized diffuse mild discomfort without guarding or rebound Musculoskeletal: Normal range of motion. She exhibits edema. She exhibits no tenderness. Neurological: She is alert and oriented to person, place, and time. Tremors and flapping Skin: Skin is warm and dry. She is not diaphoretic. Lower extremity 2 + pitting edema, calves non tender and no cords, Lower extremity chronic rash secondary to chronic dry skin Psychiatric: She has a normal mood and affect. Vitals reviewed. DATA Results for orders placed or performed during the hospital encounter of 04/09/16 (from the past 24 hour(s)) ED INFORMATION EXCHANGE Collection Time: 04/09/16 6:42 PM Result Value Ref Range RAMAN PRC RAMAN CARE PLAN Ammonia Level Collection Time: 04/09/16 7:13 PM Result Value Ref Range AMMONIA 92 (H) <33 umol/L CBC W/Auto Diff (Reflex to Manual) Collection Time: 04/09/16 7:14 PM Result Value Ref Range WBC 5.85 3.80 - 11.00 K/uL RBC 2.79 (L) 3.70 - 5.10 M/uL HGB 9.2 (L) 11.3 - 15.5 g/dL HCT 27.1 (L) 34.0 - 46.0 % MCV 97.1 80.0 - 100.0 fl MCH 32.9 27.0 - 34.0 pg MCHC 33.9 32.0 - 35.5 g/dL RDW SD 47.3 37 - 53 fl PLT 155 150 - 400 K/uL MPV 7.1 fl DIFF TYPE AUTOMATED NEUTROPHILS 54.16 % LYMPHOCYTES 12.84 % MONOCYTES 16.65 % EOSINOPHILS 15.14 % BASOPHILS 1.21 % NEUTROPHILS ABS 3.17 1.90 - 7.40 K/uL LYMPHOCYTES ABS 0.75 (L) 1.00 - 3.90 K/uL MONOCYTES ABS 0.97 (H) 0.00 - 0.80 K/uL EOSINOPHILS ABS 0.89 (H) 0.00 - 0.50 K/uL BASOPHILS ABS 0.07 0.00 - 0.10 K/uL Comprehensive metabolic panel Collection Time: 04/09/16 7:14 PM Result Value Ref Range SODIUM 131 (L) 135 - 145 mmol/L POTASSIUM 3.6 3.5 - 4.9 mmol/L CHLORIDE 97 (L) 99 - 109 mmol/L CO2 21 (L) 23 - 32 mmol/L ANION GAP AGAP 16 5 - 20 mmol/L GLUCOSE 98 65 - 99 mg/dL BUN 5 (L) 8 - 25 mg/dL CREATININE 0.41 (L) 0.50 - 1.00 mg/dL BUN/CREAT 12 CALCIUM 6.9 (L) 8.5 - 10.5 mg/dL TOTAL PROTEIN 5.8 (L) 6.3 - 8.2 g/dL Albumin 1.3 (L) 3.6 - 5.0 g/dL GLOBULIN 4.5 1.3 - 4.9 g/dL A/G 0.3 (L) 1.0 - 2.4 TBIL 0.9 0.1 - 1.5 mg/dL ALK PHOS 179 (H) 35 - 115 U/L AST 37 10 - 45 U/L ALT 16 10 - 65 U/L EGFR >60 >60 mL/min/1.73m2 Lipase Collection Time: 04/09/16 7:14 PM Result Value Ref Range LIPASE 145 73 - 393 U/L Magnesium Collection Time: 04/09/16 7:14 PM Result Value Ref Range MAGNESIUM 1.3 (L) 1.7 - 2.4 mg/dL Phosphorus Collection Time: 04/09/16 7:14 PM Result Value Ref Range PHOSPHORUS 3.0 2.3 - 4.8 mg/dL Protime-INR Collection Time: 04/09/16 7:14 PM Result Value Ref Range INR 1.3 PTT Collection Time: 04/09/16 7:14 PM Result Value Ref Range APTT 32 23 - 32 seconds Body fluid cell count Collection Time: 04/09/16 7:40 PM Result Value Ref Range FLUID TYPE ASCT COLOR STRAW APPEARANCE HAZY RBC'S 48 /mm3 TOTAL NUCLEATED CELLS 10 /mm3 NEUTROPHILS 30 % LYMPHOCYTES 9 % MONOCYTES/MACROPHAGES 52 % Mesothelial Cells 9 % CELLS COUNTED 100 pH, body fluid Collection Time: 04/09/16 7:40 PM Result Value Ref Range FLUID PH 8.00 Glucose, body fluid Collection Time: 04/09/16 7:40 PM Result Value Ref Range FLUID GLUCOSE 109 mg/dL Glucose, Fluid Type ASCT Lactate dehydrogenase, body fluid Collection Time: 04/09/16 7:40 PM Result Value Ref Range FLUID LDH 48 U/L Fluid Total Protein (Body fluid) Collection Time: 04/09/16 7:40 PM Result Value Ref Range FLUID TOTAL PROTEIN 0.7 g/dL FLUID TP SOURCE ASCT Triglycerides, Body Fluid Collection Time: 04/09/16 7:40 PM Result Value Ref Range FLUID TRIGLYCERIDE 93 mg/dL Ethanol Level Collection Time: 04/09/16 7:40 PM Result Value Ref Range ALCOHOL,ETHYL 178 (H) <10 mg/dL PROBLEM LIST Principal Problem: Acute hepatic encephalopathy (HCC) and has been drinking and non compliant with medicatio ns and arrives with ammonia level of 92 Active Problems: Alcohol abuse, continuous and with elevated 178 Mg% and tremors and flapping Hypomagnesemia 1.3 mg/dl Anemia, unspecified likely due to chronic alcohol abuse, chronic cirrhosis and malnurishm ent/anasarca but does have history of GI bleed and will be watched closely Blood alcohol level of 120-199 mg/100 ml Electrolyte and fluid disorders not elsewhere classified with low magnesium, low sodium a nd chloride ASSESSMENT & PLAN Magnesium being replaced CIWA initiated for potential alcohol withdrawal and seizure precautions as well as fall pre cautions Lactulose for elevated ammonia level as needed. Follow up cultures and labs for paracentesis of 3 liters Consider diuresis and albumin transfusions for anasarca AM labs including ammonia level, blood alcohol level Encourage alcohol cessation Disposition: Admit to observation Code Status: FULL CODE Primary Care Physician: Efra BROOKS MD 04/09/2016 documented in this en counter Procedure Notes Eduardo Akhtar ARNP - 04/13/2016 1:44 PM PSTFormatting of this note might be different fr om the original. Procedures by SHANIA Mendieta at 04/13/16 2924 Author: SHANIA Mendieta Service: (none) Author Type: Advanced Registered Nurse Prac titioner Filed: 04/13/16 2979 Date of Service: 04/13/16 1261 Status: Signed Insurance Claims Processor: SHANIA Mendieta (Advanced Registered Nurse Practitioner) Pre-procedure Diagnoses: 1. Other ascites [R18.8] Post-procedure Diagnoses: 1. Other ascites [R18.8] Procedures: 1. PARACENTESIS [JRW438 (Custom)] U/S guided paracentesis performed 4700 mL of hazy yellow fluid removed Patient tolerated procedure well, vital signs remained stable throughout procedure. No imm ediate post procedural complications encountered. See dictation for full details SHANIA Mendieta 04/13/2016 1:44 PM documented in this encounter Consult Notes Conversion Transaction, Provider Unknown - 04/13/2016 2:46 PM PSTFormatting of this note m ight be different from the original. Consults by Shwetha Goodrich RN at 04/13/161445 Author: Shwetha Goodrich RN Service: Wound/Ostomy Care Author Type: Registered Nurse Filed: 04/13/161447 Date of Service: 04/13/161445 Status: Signed Insurance Claims Processor: Shwetha Goodrich RN (Registered Nurse) Consult Orders: 1. Wound Care Evaluation and Treat [[id number]] ordered by Claude Dominique MD at 04/12/16 103 5 Wound care consulted for buttocks/groin. No wounds found. Spoke to her RN who states her le gs are very dry. Her legs were also assessed. No wounds found here either but recommend Euce rin daily to help prevent cracking. Shwetha Goodrich RN 04/13/2016 2:48 PM docume nted in this encounter ED Notes Sebastian Butler ARNP - 04/09/2016 8:32 PM PSTFormatting of this note might be differen t from the original. ED Notes by Sebastian Butler RN at 04/09/162031 Author: Sebastian Butler RN Service: (none) Author Type: Registered Nurse Filed: 04/09/162033 Date of Service: 04/09/162031 Status: Signed Insurance Claims Processor: Sebastian Butler RN (Advanced Registered Nurse Practitioner) Dr Morrow at bedside Sebastian Butler RN 04/09/162033 saacson, Bud SHANIA Ceja - 04/09/2016 8:31 PM PSTFormatting of this note might be different from the origi nal. ED Notes by Sebastian Butler RN at 04/09/162030 Author: Sebastian Butler RN Service: (none) Author Type: Registered Nurse Filed: 04/09/162030 Date of Service: 04/09/162030 Status: Signed Insurance Claims Processor: Sebastian Butler RN (Advanced Registered Nurse Practitioner) Back from [place] at this time Sebastian Butler RN 04/09/162030 onversion Giraldo saction, Provider Unknown - 04/09/2016 6:49 PM PSTFormatting of this note might be differen t from the original. ED Notes by Xu Villanueva RN at 04/09/161848 Author: Xu Villanueva RN Service: Emergency Department Author Type: Registered Nurse Filed: 04/09/161849 Date of Service: 04/09/161848 Status: Signed Insurance Claims Processor: Xu Villanueva RN (Registered Nurse) The pt has hx liver cirrhosis, she reports daily alcohol use. She has had abdominal swellin g, shortness of breath, and leg swelling. Xu Villanueva RN 04/09/161849 [email or web address] DO - 04/09/2016 6:46 PM PST ED Provider Notes by Juan Morrow DO at 04/09/161845 Author: Juan Morrow DO Service: Emergency Department Author Type: Physician Filed: 04/10/16 013 Date of Service: 04/09/161845 Status: Signed Insurance Claims Processor: Juan Morrow DO (Physician) Procedure Orders: 1. Paracentesis [[id number]] ordered by Juan Morrow DO at 04/09/16 1903 [facility] Department of Emergency Medicine 6:48 PM History of Present Illness Patient Identification Shaila M Son is a 45 y.o. female. Patient information was obtained from patient. History/Exam limitations: none. Patient presented to the Emergency Department by: Car History of Presenting Illness The patient is a 45 y.o. female presenting with Chief Complaint Patient presents with Leg Swelling bilateral Abdominal Pain "swelling" Location- Abdomen Onset- 2 months ago Duration- Intermittent Severity/Character- moderate to severe Worse with- drinking Better with- nothing Radiation- from her abdomen to her bilateral legs Denies- fever, diaphoresis, nausea Admits- shortness of breath, leg swelling, rash, cough, emesis, chills Context-45 year old female presents to the ED with chief complaint of abdominal distention. Patient states, "I'm not doing very good". Patient has a history of liver cirrhosis that wa s caused from alcohol consumption. She does not have a GI specialist. Patient reports that s he still drinks every day but not as often, adding that she has decreased to 3-4 beers a day . Her last beer was approximately 30 minutes ago. Patient reports that the last time she had fluid drained from her abdomen was back in the 90's. She adds that it feels as if her abdom en is "leaking". PMHx: h/o liver cirrhosis PCP: Efra Holguin Specialists: Past Medical History Diagnosis Date Hemorrhage of gastrointestinal tract, unspecified Liver disease Hypertension Anemia Seizures (HCC) Past Surgical History Procedure Laterality Date Hx of tracheostomy Esophagogastroduodenoscopy N/A 07/30/2011 Procedure: ESOPHAGOGASTRODUODENOSCOPY; Surgeon: Mitchell Stewart IV, MD; Location: [facility]; Service: Gastroenterology; Laterality: N/A; anesthesia assist if available since may be difficult to sedate Back surgery Prior to Admission medications Medication Sig Start Date End Date Taking? Authorizing Provider amLODIPine (NORVASC) 5 MG tablet Take 1 tablet by mouth daily. 02/13/14 02/13/15 Micki Redding MD furosemide (LASIX) 20 MG tablet Take 1 tablet by mouth daily. 02/13/14 02/13/15 Micki Redding MD lactulose (CHRONULAC) 10 GM/15ML solution Take 10 g by mouth 2 (two) times daily. Histor ical Provider magnesium oxide (MAG-OX) 400 MG tablet Take 1 tablet by mouth 2 (two) times daily. 02/13/14 10/05/14 Micki Redding MD Vit-Fe Fumarate-FA ( MULTIVITAMIN & MINERALS W IRON/FA) 27-0.8 MG TABS tab let Take 1 tablet by mouth daily. 03/28/13 Precious Miller MD spironolactone (ALDACTONE) 25 MG tablet Take 25 mg by mouth daily. Historical Provider thiamine (VITAMIN B-1) 100 MG tablet Take 1 tablet by mouth daily. 10/07/14 10/07/15 Precious flores MD Allergies Allergen Reactions Aspirin Anaphylaxis Pt unable to recall, this information came from [facility] record Lactose Anaphylaxis Pt unable to recall, this information came from [facility] record Ciprofloxacin Other (See Comments) Pt. Unable to recall, this information came from [facility] record Ibuprofen Other (See Comments) Pt. Unable to recall, this information came from [facility] record Social History Social History Marital Status: Single Spouse Name: N/A Number of Children: N/A Years of Education: N/A Occupational History Not on file. Social History Main Topics Smoking status: Former Smoker Smokeless tobacco: Not on file Alcohol Use: Yes Comment: 6 pack per day Drug Use: No Sexual Activity: Not on file Other Topics Concern Not on file Social History Narrative No family history on file. I have personally reviewed the social history, pertinent history has been addressed. Review of Systems Constitutional: Positive for chills Negative for fever Eyes: Negative for vision changes Nose: Negative for congestion, nosebleeds Throat: Negative for sore throat CV/Resp: Positive for shortness of breath, bilateral leg swelling, cough Negative for chest pain GI: Positive for abdominal distention, emesis Negative for nausea, or diarrhea : Negative for urinary problems Musculoskeletal: Negative for back pain, joint pain Skin: Positive for rash Neuro/Psych: Negative for headache Endo/heme/Lymph: Negative for swollen lymph nodes, easy bruising Physical Exam BP 139/79 mmHg | Pulse 113 | Temp(Src) 98.5 F (36.9 C) (Temporal) | Resp 18 | Wt 86.6 k g (190 lb 14.7 oz) | SpO2 98% Vital signs interpretation: Tachycardic, otherwise within normal limits Pulse Oximetry interpretation: Normal General: Alert, in no apparent distress Eyes: Normal inspection, pupils equal and round, scleral icterus ENT: Ears normal Nose normal Moist mucous membranes Oropharynx clear Neck: Normal inspection Supple Cardiovasc: Rate and rhythm normal No murmurs Respiratory: Breath sounds normal bilaterally No rales, wheezing or rhonchi Abdomen: Soft, non-tender, diffusely distended with positive fluid wave No guarding or rebound No peritoneal sign There is erythroderma over the entire abdomen and it is warm to the touch Genitourinary: Deferred Rectal exam: Deferred Back: Normal inspection Extremities: Chronic venous stasis in bilateral lower extremities with 2+ pitting edema th at goes up to her bilateral hips Skin: Color normal Warm and dry Scattered petechia over the abdomen Neuro: Alert, no AMS No gross motor/sensory deficits Moving all extremities Medical Decision Making and Emergency Department Course ED Department Course 45 y.o. female presents to the ED with a chief complaints of abdominal distention, fluid o verload. She has a history of liver cirrhosis. Will get labs, US, perform paracentesis, and reevaluate the patient. Review of vitals BP 139/79 mmHg | Pulse 113 | Temp(Src) 98.5 F (36.9 C) (Temporal) | Re sp 18 | Wt 86.6 kg (190 lb 14.7 oz) | SpO2 98% 7:09 PM Paracentesis and Bedside US performed at this time. See procedure note below for fu rther details. Bedside US: Procedure: Assist with paracentesis Indication: Ascites Performed by: Juan Morrow DO 8:13 PM Labs reviewed. Ammonia level is elevated at 92. 8:33 PM Patient reevaluated. Discussed lab results and plan for admission to the hospital. Patient understands and agrees with plan. Patient does admit that she is supposed to be taki ng lactulose and has not taken it in at least 6 months. 8:38 PM Discussed case with Dr. Brooks, hospitalist, who accepts the patient for admissi on at this time. 9:10 PM US imaging results reviewed. Cirrhotic liver morphology with moderate to large amou nt of ascites. DDx: I considered appendicitis, mesenteric ischemia, musculoskeletal pain, diverticulitis, IBS, IBD, ovarian torsion, TOA, ovarian cyst, PID, among others in my differential and wisam p which I discussed with the pt. Pt with abd pain, distension, ascites, paracentesis done, p t started on lactulose and admitted to medicine. Records Reviewed Old medical records. Nursing notes. Laboratory Evaluation Results Procedure Component Value Ref Range Date/Time Fluid Culture W/Gram Stain [[id number]] Collected: 04/09/161939 Order Status: Completed Specimen Information: Body Fluid from Ascites Fluid Updated: 04/09/16 2331 Specimen Description ASCITES FLUID GRAM STAIN NO CELLS OR ORGANISMS SEEN CULTURE PENDING Urinalysis (reflex to microscopic/reflex to culture) [[id number]] (Abnormal) Collected: 04/09/162228 Order Status: Completed Specimen Information: Urine, Clean Catch Updated: 04/09/16 22 52 COLOR UA YELLOW CLARITY CLEAR Specific [place], UA 1.003 1.002 - 1.030 LEUKOCYTE ESTERASE NEGATIVE NEGATIVE NITRITE NEGATIVE NEGATIVE UROBILINOGEN NORMAL <1.1 mg/dL PROTEIN NEGATIVE NEGATIVE mg/dL PH,URINE 6.0 5.0 - 8.0 BLOOD SMALL (A) NEGATIVE KETONES NEGATIVE NEGATIVE mg/dL BILIRUBIN NEGATIVE NEGATIVE GLUCOSE NEGATIVE NEGATIVE mg/dL WBC 0-2 0 - 5 /hpf RBC 3-5 0 - 5 /hpf BACTERIA NONE SEEN NONE SEEN EPITHELIAL 11-15 /lpf Mucus, UA 1+ Fluid Total Protein (Body fluid) [[id number]] Collected: 04/09/161939 Order Status: Completed Specimen Information: Body Fluid from Ascites Fluid Updated: 04/09/162157 FLUID TOTAL PROTEIN 0.7 g/dL FLUID TP SOURCE ASCT Triglycerides, Body Fluid [[id number]] Collected: 04/09/161939 Order Status: Completed Specimen Information: Body Fluid from Ascites Fluid Updated: 04/09/162157 FLUID TRIGLYCERIDE 93 mg/dL Glucose, body fluid [[id number]] Collected: 04/09/161939 Order Status: Completed Specimen Information: Body Fluid from Ascites Fluid Updated: 04/09/162157 FLUID GLUCOSE 109 mg/dL Glucose, Fluid Type ASCT Lactate dehydrogenase, body fluid [[id number]] Collected: 04/09/161939 Order Status: Completed Specimen Information: Body Fluid from Ascites Fluid Updated: 04/09/162157 FLUID LDH 48 U/L Body fluid cell count [[id number]] Collected: 04/09/161939 Order Status: Completed Specimen Information: Body Fluid from Ascites Fluid Updated: 04/09/162052 FLUID TYPE ASCT COLOR STRAW APPEARANCE HAZY RBC'S 48 /mm3 TOTAL NUCLEATED CELLS 10 /mm3 NEUTROPHILS 30 % LYMPHOCYTES 9 % MONOCYTES/MACROPHAGES 52 % Mesothelial Cells 9 % CELLS COUNTED 100 Ethanol Level [[id number]] (Abnormal) Collected: 04/09/161939 Order Status: Completed Specimen Information: Blood Updated: 04/09/162025 ALCOHOL,ETHYL 178 (H) <10 mg/dL pH, body fluid [[id number]] Collected: 04/09/161939 Order Status: Completed Specimen Information: Body Fluid from Ascites Fluid Updated: 04/09/16 2002 FLUID PH 8.00 Ammonia Level [[id number]] (Abnormal) Collected: 04/09/161912 Order Status: Completed Specimen Information: Blood Updated: 04/09/161954 AMMONIA 92 (H) <33 umol/L Phosphorus [[id number]] Collected: 04/09/161913 Order Status: Completed Specimen Information: Blood Updated: 04/09/161954 PHOSPHORUS 3.0 2.3 - 4.8 mg/dL Comprehensive metabolic panel [[id number]] (Abnormal) Collected: 04/09/161913 Order Status: Completed Specimen Information: Blood Updated: 04/09/161954 SODIUM 131 (L) 135 - 145 mmol/L POTASSIUM 3.6 3.5 - 4.9 mmol/L CHLORIDE 97 (L) 99 - 109 mmol/L CO2 21 (L) 23 - 32 mmol/L ANION GAP AGAP 16 5 - 20 mmol/L GLUCOSE 98 65 - 99 mg/dL BUN 5 (L) 8 - 25 mg/dL CREATININE 0.41 (L) 0.50 - 1.00 mg/dL BUN/CREAT 12 CALCIUM 6.9 (L) 8.5 - 10.5 mg/dL TOTAL PROTEIN 5.8 (L) 6.3 - 8.2 g/dL Albumin 1.3 (L) 3.6 - 5.0 g/dL GLOBULIN 4.5 1.3 - 4.9 g/dL A/G 0.3 (L) 1.0 - 2.4 TBIL 0.9 0.1 - 1.5 mg/dL ALK PHOS 179 (H) 35 - 115 U/L AST 37 10 - 45 U/L ALT 16 10 - 65 U/L EGFR >60 >60 mL/min/1.73m2 Lipase [[id number]] Collected: 04/09/161913 Order Status: Completed Specimen Information: Blood Updated: 04/09/161954 LIPASE 145 73 - 393 U/L Magnesium [[id number]] (Abnormal) Collected: 04/09/161913 Order Status: Completed Specimen Information: Blood Updated: 04/09/161954 MAGNESIUM 1.3 (L) 1.7 - 2.4 mg/dL Protime-INR [[id number]] Collected: 04/09/161913 Order Status: Completed Specimen Information: Blood Updated: 04/09/161946 INR 1.3 PTT [[id number]] Collected: 04/09/161913 Order Status: Completed Specimen Information: Blood Updated: 04/09/161946 APTT 32 23 - 32 seconds CBC W/Auto Diff (Reflex to Manual) [[id number]] (Abnormal) Collected: 04/09/161913 Order Status: Completed Specimen Information: Blood Updated: 04/09/161928 WBC 5.85 3.80 - 11.00 K/uL RBC 2.79 (L) 3.70 - 5.10 M/uL HGB 9.2 (L) 11.3 - 15.5 g/dL HCT 27.1 (L) 34.0 - 46.0 % MCV 97.1 80.0 - 100.0 fl MCH 32.9 27.0 - 34.0 pg MCHC 33.9 32.0 - 35.5 g/dL RDW SD 47.3 37 - 53 fl PLT 155 150 - 400 K/uL MPV 7.1 fl DIFF TYPE AUTOMATED NEUTROPHILS 54.16 % LYMPHOCYTES 12.84 % MONOCYTES 16.65 % EOSINOPHILS 15.14 % BASOPHILS 1.21 % NEUTROPHILS ABS 3.17 1.90 - 7.40 K/uL LYMPHOCYTES ABS 0.75 (L) 1.00 - 3.90 K/uL MONOCYTES ABS 0.97 (H) 0.00 - 0.80 K/uL EOSINOPHILS ABS 0.89 (H) 0.00 - 0.50 K/uL BASOPHILS ABS 0.07 0.00 - 0.10 K/uL I personally reviewed the lab results and they have been posted to the chart. Pertinent po sitive and negative findings have been addressed appropriately and I have discussed any abno rmal labs with the patient. Radiology and EKG Evaluation Imaging Results US abdomen limited (Final result) Result time: 04/09/16 21:10:48 Procedure changed from Ultrasound miscellaneous Final result by Rad Results In Jerm[place] (04/09/16 21:10:48) Impression: 1. Cirrhotic liver morphology with moderate to large amount of ascites. 2. Hypoechoic vascular masses within the liver are concerning for HCC versus metastatic di sease. Further evaluation with nonemergent MRI of the liver is recommended. 3. Pulsatile and/or diminished flow of the portal vein 4. Cholelithiasis. 5. The entire pancreas is obscured by bowel gas and not well evaluated. Narrative: SHAILA SON 1970 US ABDOMEN LIMITED 04/09/2016 8:28 PM HISTORY: Abdominal pain, distention COMPARISON: 10/05/2014 and 03/25/2013 TECHNIQUE: Transabdominal ultrasound of the right upper quadrant, grayscale and color flow evaluation. FINDINGS: The liver appears shrunken, increased in echogenicity with nodular contours, like ly secondary to cirrhosis. There is a area of heterogeneous decreased echogenicity within th e right hepatic lobe which measures 4.4 x 3.7 x 2.8 cm (image 26) and demonstrates internal vascularity. A smaller hypoechoic heterogeneous areas visualized more medially measuring 1.8 x 1.5 x 1.6 cm (image 56) also demonstrating blood flow. Portal venous and central hepatic artery flow was not able to be detected intrahepatically. Extrahepatic portal vein evaluation demonstrates pulsatility and possibly diminished flow. The common bile duct is normal in diameter was not obtained.. The gallbladder is contracted and contains multiple stones. The sonographic Chun sign was negative. The common bile duct measures 7 mm. The entire pancreas is obscured by bowel gas. There is a moderate to large amount of ascites. There is no hydronephrosis of the right kidney. ED Diagnoses Final diagnoses Hepatic encephalopathy (HCC) Alcoholic cirrhosis of liver with ascites (HCC) Ascites due to alcoholic cirrhosis (HCC) Alcohol dependence with uncomplicated intoxication (HCC) Tachycardia Dehydration Hypocalcemia Hypomagnesemia Anasarca Alcohol abuse, continuous Anemia, unspecified Electrolyte and fluid disorders not elsewhere classified Malnutrition of moderate degree (HCC) Disposition: ED Disposition Admit/Observation Bed request special needs: None Diagnosis?: hepatic encephalopathy Procedures Additional Documentation Paracentesis Date/Time: 04/09/2016 7:09 PM Performed by: JUAN MORROW Authorized by: JUAN MORROW Consent: Consent obtained: Verbal and written Consent given by: Patient and spouse Risks discussed: Bowel perforation and bleeding Alternatives discussed: Observation and no treatment Pre-procedure details: Procedure purpose: Therapeutic Preparation: Patient was prepped and draped in usual sterile fashion Anesthesia (see MAR for exact dosages): Anesthesia method: Local infiltration Local anesthetic: Lidocaine 1% w/o epi Procedure details: Needle gauge: 18 Ultrasound guidance: yes Puncture site: L lower quadrant Fluid removed amount: 3 litres Fluid characteristics: straw colored. Dressing: Adhesive bandage Post-procedure details: Patient tolerance of procedure: Tolerated well, no immediate complications Attending Note: Documentation assistance provided by Ezra Rubio (Scribe), 04/09/2016, 1900. Information recorded by the scribe has been reviewed and rhett dated by me. I agree with its contents. DO Juan French DO 04/10/16 0131 documented in t his encounter Miscellaneous Notes Plan of Care - Conversion Transaction, Provider Unknown - 04/10/2016 12:12 PM PST Plan of Care by Juanis Alvarez RN at 04/10/16 1212 Author: Juanis Alvarez RN Service: (none) Author Type: Registered Nurse Filed: 04/10/16 1212 Date of Service: 04/10/16 1212 Status: Signed Insurance Claims Processor: Juanis Alvarez RN (Registered Nurse) Daily Care Daily care needs are met Progressing Pain Patient's pain/discomfort is manageable Progressing Psychosocial Needs Demonstrates ability to cope with hospitalization/illness Progressing Collaborate with patient/family/caregiver to identify patient specific goals for this h ospitalization Progressing Safety Patient will be injury free during hospitalization Progressing Continue To medicate Pt As needed For Pain And Assist pt Ans Needed to ensure Safe hospital Stay. [place]nr docume nted in this encounter Plan of Treatment Not on filedocumented as of this encounter Procedures + +--------+ + + + | Procedure Name | Priori | Date/Time | Associated Diagnosis | Comments | | | ty | | | | + +--------+ + + + | BASIC METABOLIC | Routin | 04/15/2016 | | Results for this | | PANEL | e | 2:06 PM | | procedure are in the | | | | PST | | results section. | + +--------+ + + + | MAGNESIUM | Routin | 04/14/2016 | | Results for this | | | e | 8:47 AM | | procedure are in the | | | | PST | | results section. | + +--------+ + + + | AMMONIA | Routin | 04/14/2016 | | Results for this | | | e | 8:47 AM | | procedure are in the | | | | PST | | results section. | + +--------+ + + + | BASIC METABOLIC | Routin | 04/14/2016 | | Results for this | | PANEL | e | 8:47 AM | | procedure are in the | | | | PST | | results section. | + +--------+ + + + | US GUIDED | Routin | 04/13/2016 | | Results for this | | PARACENTESIS | e | 12:00 PM | | procedure are in the | | | | PST | | results section. | + +--------+ + + + | VITAMIN B-12 | Routin | 04/13/2016 | | Results for this | | | e | 8:24 AM | | procedure are in the | | | | PST | | results section. | + +--------+ + + + | EXTERNAL LAB: CBC | Routin | 04/13/2016 | | Results for this | | | e | 8:15 AM | | procedure are in the | | | | PST | | results section. | + +--------+ + + + | TSH | Routin | 04/13/2016 | | Results for this | | | e | 8:15 AM | | procedure are in the | | | | PST | | results section. | + +--------+ + + + | COMPREHENSIVE | Routin | 04/13/2016 | | Results for this | | METABOLIC PANEL | e | 8:15 AM | | procedure are in the | | | | PST | | results section. | + +--------+ + + + | AMMONIA | Routin | 04/12/2016 | | Results for this | | | e | 9:35 AM | | procedure are in the | | | | PST | | results section. | + +--------+ + + + | PHOSPHORUS | Routin | 04/12/2016 | | Results for this | | | e | 7:52 AM | | procedure are in the | | | | PST | | results section. | + +--------+ + + + | MAGNESIUM | Routin | 04/12/2016 | | Results for this | | | e | 7:52 AM | | procedure are in the | | | | PST | | results section. | + +--------+ + + + | COMPREHENSIVE | Routin | 04/12/2016 | | Results for this | | METABOLIC PANEL | e | 7:52 AM | | procedure are in the | | | | PST | | results section. | + +--------+ + + + | AMMONIA | Routin | 04/11/2016 | | Results for this | | | e | 11:23 AM | | procedure are in the | | | | PST | | results section. | + +--------+ + + + | EXTERNAL LAB: CBC | Routin | 04/11/2016 | | Results for this | | | e | 6:01 AM | | procedure are in the | | | | PST | | results section. | + +--------+ + + + | PHOSPHORUS | Routin | 04/11/2016 | | Results for this | | | e | 6:01 AM | | procedure are in the | | | | PST | | results section. | + +--------+ + + + | MAGNESIUM | Routin | 04/11/2016 | | Results for this | | | e | 6:01 AM | | procedure are in the | | | | PST | | results section. | + +--------+ + + + | COMPREHENSIVE | Routin | 04/11/2016 | | Results for this | | METABOLIC PANEL | e | 6:01 AM | | procedure are in the | | | | PST | | results section. | + +--------+ + + + | POTASSIUM | Routin | 04/10/2016 | | Results for this | | | e | 8:49 PM | | procedure are in the | | | | PST | | results section. | + +--------+ + + + | PHOSPHORUS | Routin | 04/10/2016 | | Results for this | | | e | 8:49 PM | | procedure are in the | | | | PST | | results section. | + +--------+ + + + | MAGNESIUM | Routin | 04/10/2016 | | Results for this | | | e | 8:49 PM | | procedure are in the | | | | PST | | results section. | + +--------+ + + + | AMMONIA | Routin | 04/10/2016 | | Results for this | | | e | 5:02 AM | | procedure are in the | | | | PST | | results section. | + +--------+ + + + | EXTERNAL LAB: CBC | Routin | 04/10/2016 | | Results for this | | | e | 5:01 AM | | procedure are in the | | | | PST | | results section. | + +--------+ + + + | PTT | Routin | 04/10/2016 | | Results for this | | | e | 5:01 AM | | procedure are in the | | | | PST | | results section. | + +--------+ + + + | PROTIME INR | Routin | 04/10/2016 | | Results for this | | | e | 5:01 AM | | procedure are in the | | | | PST | | results section. | + +--------+ + + + | PHOSPHORUS | Routin | 04/10/2016 | | Results for this | | | e | 5:01 AM | | procedure are in the | | | | PST | | results section. | + +--------+ + + + | MAGNESIUM | Routin | 04/10/2016 | | Results for this | | | e | 5:01 AM | | procedure are in the | | | | PST | | results section. | + +--------+ + + + | ALCOHOL | Routin | 04/10/2016 | | Results for this | | | e | 5:01 AM | | procedure are in the | | | | PST | | results section. | + +--------+ + + + | COMPREHENSIVE | Routin | 04/10/2016 | | Results for this | | METABOLIC PANEL | e | 5:01 AM | | procedure are in the | | | | PST | | results section. | + +--------+ + + + | URINALYSIS, REFLEX | Routin | 04/09/2016 | | Results for this | | MICROSCOPIC AND/OR | e | 10:29 PM | | procedure are in the | | CULTURE | | PST | | results section. | + +--------+ + + + | US ABDOMEN LIMITED | Routin | 04/09/2016 | | Results for this | | | e | 8:28 PM | | procedure are in the | | | | PST | | results section. | + +--------+ + + + | EXTERNAL LAB: | STAT | 04/09/2016 | | Results for this | | PROTEIN, TOTAL | | 7:40 PM | | procedure are in the | | | | PST | | results section. | + +--------+ + + + | LACTATE | STAT | 04/09/2016 | | Results for this | | DEHYDROGENASE, BODY | | 7:40 PM | | procedure are in the | | FLUID | | PST | | results section. | + +--------+ + + + | CELL COUNT, BODY | STAT | 04/09/2016 | | Results for this | | FLUID | | 7:40 PM | | procedure are in the | | | | PST | | results section. | + +--------+ + + + | CULTURE, BODY FLUID, | STAT | 04/09/2016 | | Results for this | | STERILE, SMEAR, | | 7:40 PM | | procedure are in the | | WITH ANAEROBES | | PST | | results section. | + +--------+ + + + | TRIGLYCERIDES, BODY | STAT | 04/09/2016 | | Results for this | | FLUID | | 7:40 PM | | procedure are in the | | | | PST | | results section. | + +--------+ + + + | GLUCOSE, BODY FLUID | STAT | 04/09/2016 | | Results for this | | | | 7:40 PM | | procedure are in the | | | | PST | | results section. | + +--------+ + + + | PH, BODY FLUID | STAT | 04/09/2016 | | Results for this | | | | 7:40 PM | | procedure are in the | | | | PST | | results section. | + +--------+ + + + | ALCOHOL | Routin | 04/09/2016 | | Results for this | | | e | 7:40 PM | | procedure are in the | | | | PST | | results section. | + +--------+ + + + | EXTERNAL LAB: CBC | Routin | 04/09/2016 | | Results for this | | | e | 7:14 PM | | procedure are in the | | | | PST | | results section. | + +--------+ + + + | PTT | Routin | 04/09/2016 | | Results for this | | | e | 7:14 PM | | procedure are in the | | | | PST | | results section. | + +--------+ + + + | PROTIME INR | Routin | 04/09/2016 | | Results for this | | | e | 7:14 PM | | procedure are in the | | | | PST | | results section. | + +--------+ + + + | PHOSPHORUS | Routin | 04/09/2016 | | Results for this | | | e | 7:14 PM | | procedure are in the | | | | PST | | results section. | + +--------+ + + + | MAGNESIUM | Routin | 04/09/2016 | | Results for this | | | e | 7:14 PM | | procedure are in the | | | | PST | | results section. | + +--------+ + + + | LIPASE | Routin | 04/09/2016 | | Results for this | | | e | 7:14 PM | | procedure are in the | | | | PST | | results section. | + +--------+ + + + | COMPREHENSIVE | Routin | 04/09/2016 | | Results for this | | METABOLIC PANEL | e | 7:14 PM | | procedure are in the | | | | PST | | results section. | + +--------+ + + + | AMMONIA | Routin | 04/09/2016 | | Results for this | | | e | 7:13 PM | | procedure are in the | | | | PST | | results section. | + +--------+ + + + documented in this encounter Results Basic Metabolic Panel (04/15/2016 2:06 PM PST) + + + + + + | Component | Value | Ref Range | Performed | Pathologist | | | | | At | Signature | + + + + + + | Na | 142Comment: Testing | 135 - 145 | EXTERNAL | | | | performed at [facility];[address] | mmol/L | LAB | | | | [address];[place], [place] | | | | | | [address] | | | | + + + + + + | K | 3.4 (L)Comment: Testing | 3.5 - 4.9 | EXTERNAL | | | | performed at [facility];[address] | mmol/L | LAB | | | | [address];[place] | | | | | | [address] | | | | + + + + + + | Cl | 107Comment: Testing | 99 - 109 mmol/L | EXTERNAL | | | | performed at [facility];[address] | | LAB | | | | [address];[place] | | | | | | [address] | | | | + + + + + + | CO2 | 25Comment: Testing | 23 - 32 mmol/L | EXTERNAL | | | | performed at [facility];[address] | | LAB | | | | [address];[place] | | | | | | [address] | | | | + + + + + + | Anion Gap | 13Comment: Testing | 5 - 20 mmol/L | EXTERNAL | | | | performed at [facility];[address] | | LAB | | | | [address];[place] | | | | | | [address] | | | | + + + + + + | Glucose, | 87Comment: Testing | 65 - 99 mg/dL | EXTERNAL | | | Fasting | performed at [facility];[address] | | LAB | | | | [address];[place] | | | | | | [address] | | | | + + + + + + | BUN | 9Comment: Testing | 8 - 25 mg/dL | EXTERNAL | | | | performed at [facility];[address] | | LAB | | | | [address];[place] | | | | | | [address] | | | | + + + + + + | Creatinine | 0.57Comment: Testing | 0.50 - 1.00 | EXTERNAL | | | | performed at [facility];[address] | mg/dL | LAB | | | | [address];[place] | | | | | | [address] | | | | + + + + + + | BUN/Creatin | 16Comment: Testing | | EXTERNAL | | | ine Ratio | performed at [facility];[address] | | LAB | | | | [address];[place] | | | | | | [address] | | | | + + + + + + | Calcium | 7.1 (L)Comment: Testing | 8.5 - 10.5 | EXTERNAL | | | | performed at [facility];[address] | mg/dL | LAB | | | | [address];[place] | | | | | | [address] | | | | + + + [...] | | | | | | at [facility];[address] | | | | | | [address];[place] [address] | | | | + + + + + + + + | Specimen | + + | Blood specimen | | (specimen) | + + + +---------+ + + | Performing | Address | City/State/Zipcode | Phone Number | | Organization | | | | + +---------+ + + | EXTERNAL LAB | | | | + +---------+ + + Magnesium (04/14/2016 8:47 AM PST) + + + + + + | Component | Value | Ref Range | Performed | Pathologist | | | | | At | Signature | + + + + + + | Magnesium | 1.1 (L)Comment: MODERATE | 1.7 - 2.4 mg/dL | EXTERNAL | | | | HEMOLYSISTesting | | LAB | | | | performed at [facility];[address] | | | | | | [address];[place], [place] | | | | | | [address] | | | | + + + + + + + + | Specimen | + + | Blood specimen | | (specimen) | + + + +---------+ + + | Performing | Address | City/State/Zipcode | Phone Number | | Organization | | | | + +---------+ + + | EXTERNAL LAB | | | | + +---------+ + + Ammonia (04/14/2016 8:47 AM PST) + + + + + + | Component | Value | Ref Range | Performed | Pathologist | | | | | At | Signature | + + + + + + | Ammonia | 46 (H)Comment: MARKED | umol/L | EXTERNAL | | | | HEMOLYSISTesting | | LAB | | | | performed at [facility];[address] | | | | | | [address];[place] | | | | | | [address] | | | | + + + [...] + +---------+ + + Basic Metabolic Panel (04/14/2016 8:47 AM PST) + + + + + + | Component | Value | Ref Range | Performed | Pathologist | | | | | At | Signature | + + + + + + | Na | 136Comment: Testing | 135 - 145 | EXTERNAL | | | | performed at [facility];[address] | mmol/L | LAB | | | | [address];[place] | | | | | | [address] | | | | + + + + + + | K | 5.6 (H)Comment: MODERATE | 3.5 - 4.9 | EXTERNAL | | | | HEMOLYSISTesting | mmol/L | LAB | | | | performed at [facility];[address] | | | | | | [address];[place] | | | | | | [address] | | | | + + + + + + | Cl | 102Comment: Testing | 99 - 109 mmol/L | EXTERNAL | | | | performed at [facility];[address] | | LAB | | | | [address];[place] | | | | | | [address] | | | | + + + + + + | CO2 | 24Comment: Testing | 23 - 32 mmol/L | EXTERNAL | | | | performed at [facility];[address] | | LAB | | | | [address];[place] | | | | | | [address] | | | | + + + + + + | Anion Gap | 16Comment: Testing | 5 - 20 mmol/L | EXTERNAL | | | | performed at [facility];[address] | | LAB | | | | [address];[place] | | | | | | [address] | | | | + + + + + + | Glucose, | 79Comment: Testing | 65 - 99 mg/dL | EXTERNAL | | | Fasting | performed at [facility];[address] | | LAB | | | | [address];[place] | | | | | | [address] | | | | + + + + + + | BUN | 7 (L)Comment: Testing | 8 - 25 mg/dL | EXTERNAL | | | | performed at [facility];[address] | | LAB | | | | [address];[place] | | | | | | [address] | | | | + + + + + + | Creatinine | 0.58Comment: Testing | 0.50 - 1.00 | EXTERNAL | | | | performed at [facility];[address] | mg/dL | LAB | | | | [address];[place] | | | | | | [address] | | | | + + + + + + | BUN/Creatin | 12Comment: Testing | | EXTERNAL | | | ine Ratio | performed at [facility];[address] | | LAB | | | | [address];[place] | | | | | | [address] | | | | + + + + + + | Calcium | 7.4 (L)Comment: Testing | 8.5 - 10.5 | EXTERNAL | | | | performed at [facility];[address] | mg/dL | LAB | | | | [address];[place] | | | | | | [address] | | | | + + + [...] | | | | | | at [facility];[address] | | | | | | [address];[place] [address] | | | | + + + [...] + +---------+ + + US Guided Paracentesis (04/13/2016 12:00 PM PST) + + | Specimen | + + | | + + + + + | Impressions | Performed At | + + + | 1. Successful ultrasound-guided therapeutic paracentesis with | | | removal of 4700 mL of hazy yellow peritoneal fluid. 2. No | | | immediate postprocedural complications were encountered. | | | | | + + + + + + | Narrative | Performed At | + + + | Ultrasound-guided therapeutic paracentesis. INDICATIONS | | | Ascites * * ALLERGIES* * 1. ASPIRIN 2. LACTOSE 3. CIPRO | | | 4. IBUPROFEN LABORATORY DATA Lab work indicates platelet count | | | of 143,000, INR of 1.3 REFERRING PHYSICIAN Claude Dominique MD | | | DESCRIPTION OF PROCEDURE I met this patient in Room 81. The patient | | | was awake, alert, and oriented x 3 and in no acute distress. We had a | | | discussion about the procedure, the risks involved, benefits, | | | potential medical consequences, and the alternatives. The patient | | | understood this and their desire was to proceed with the procedure. | | | Therefore a written informed consent was obtained. A | | | pre-procedural pause time-out was performed indicating the procedure, | | | the patient, and the site. All members of the team were in agreement. | | | Ultrasound was utilized to sanket the area in the right lower | | | abdominal quadrant with the largest pocket of fluid. Ascites was | | | noted 3 cm below the skin surface. The distance from the skin to the | | | posterior margin of the collection was 7 cm. The area was prepped | | | utilizing chlorhexidine circular scrubs. Sterile drapes were wisam and | | | sterile technique was maintained throughout the procedure. | | | Lidocaine 1% was infused through the skin tissues at the insertion | | | point, with good effect. A small sam was made through the skin | | | tissues with a #11 blade. Then, a large-bore paracentesis needle was | | | guided through the skin tissues using aspiration at the end of the | | | syringe. When into the ascitic fluid, there was an immediate return | | | of hazy yellow fluid. The needle was removed and the catheter was | | | advanced. This was attached to negative-pressure Vacutainer tubing | | | system with a brisk return of fluid. The total amount of fluid | | | removed was 4700 mL of hazy yellow peritoneal fluid. The patient's | | | vital signs remained stable throughout the procedure and no | | | post-procedural complications were encountered. When 4700 mL was | | | reached the procedure was terminated. The catheter was removed and | | | pressure was applied to the site for 3 minutes, no further leakage | | | was noted. The patient verbalized relief of abdominal discomfort, | | | abdominal distention. The fluid was sent to the laboratory for | | | indicated testing. | | + + + + + | Procedure Note | + + | Edgardo Dean - 11/20/2018 9:39 PM PDT Ultrasound-guided therapeutic | | paracentesis. INDICATIONSAscites * * ALLERGIES* *1. ASPIRIN2. LACTOSE3. CIPRO4. | | [facility]AT[facility] DATALab work indicates platelet count of 143,000, INR of 1.3 | | REFERRING PHYSICIANClaude Dominique MD DESCRIPTION OF PROCEDUREI met this patient in Room 8127. | | The patient was awake, alert, and oriented x 3 and in no acute distress. We had a | | discussion about the procedure, the risks involved, benefits, potential medical | | consequences, and the alternatives. The patient understood this and their desire was to | | proceed with the procedure. Therefore a written informed consent was obtained. A | | pre-procedural pause time-out was performed indicating the procedure, the patient, and | | the site. All members of the team were in agreement. Ultrasound was utilized to sanket the | | area in the right lower abdominal quadrant with the largest pocket of fluid. Ascites | | was noted 3 cm below the skin surface. The distance from the skin to the posterior | | margin of the collection was 7 cm. The area was prepped utilizing chlorhexidine circular | | scrubs. Sterile drapes were wisam and sterile technique was maintained throughout the | | procedure. Lidocaine 1% was infused through the skin tissues at the insertion point, | | with good effect. A small sam was made through the skin tissues with a #11 blade. | | Then, a large-bore paracentesis needle was guided through the skin tissues using | | aspiration at the end of the syringe. When into the ascitic fluid, there was an | | immediate return of hazy yellow fluid. The needle was removed and the catheter was | | advanced. This was attached to negative-pressure Vacutainer tubing system with a brisk | | return of fluid. The total amount of fluid removed was 4700 mL of hazy yellow | | peritoneal fluid. The patient's vital signs remained stable throughout the procedure | | and no post-procedural complications were encountered. When 4700 mL was reached the | | procedure was terminated. The catheter was removed and pressure was applied to the site | | for 3 minutes, no further leakage was noted. The patient verbalized relief of | | abdominal discomfort, abdominal distention. The fluid was sent to the laboratory for | | indicated testing. IMPRESSION: 1. Successful ultrasound-guided therapeutic paracentesis | | with removal of 4700 mL of hazy yellow peritoneal fluid. 2. No immediate postprocedural | | complications were encountered. | | PM | |skin tissues using aspiration at | |the end of the syringe. When into the ascitic fluid, there was an immediate return of hazy yellow fluid. The needle was removed and the catheter was advanced. This was attached to negative-pressure Vacutainer tubing system with a brisk return of | |fluid. The total amount of fluid removed was 4700 mL of hazy yellow peritoneal fluid. The patient's vital signs remained stable throughout the procedure and no post-procedural compl ications were encountered. When | |4700 mL was reached the procedure was | |terminated. The catheter was removed and pressure was applied to the site for 3 minutes, n o further leakage was noted. The patient verbalized relief of abdominal discomfort, abdomin al distention. The fluid was sent to the laboratory for indicated | |testing. | | | |IMPRESSION: | | | |1. Successful ultrasound-guided therapeutic paracentesis with removal of 4700 mL of hazy ye llow peritoneal fluid. | | | |2. No immediate postprocedural complications were encountered. | | | | | | | | | + + Vitamin B-12 (04/13/2016 8:24 AM PST) + + + + + + | Component | Value | Ref Range | Performed | Pathologist | | | | | At | Signature | + + + + + + | VITAMIN | 1,804 (H)Comment: | 254 - 1,320 | EXTERNAL | | | B-12 | Testing performed at | pg/mL | LAB | | | | [facility], [address] | | | | | | [place], [place] | | | | | | [address] | | | | + + + [...] + +---------+ + + External Lab: CBC (04/13/2016 8:15 AM PST) + + + + + + | Component | Value | Ref Range | Performed | Pathologist | | | | | At | Signature | + + + + + + | WBC | 5.58Comment: Testing | 3.80 - 11.00 | EXTERNAL | | | | performed at [facility];888 | K/uL | LAB | | | | [address];[place] | | | | | | [address] | | | | + + + + + + | Non- | 2.72 (L)Comment: Testing | 3.70 - 5.10 | EXTERNAL | | | Red Blood | performed at [facility];888 | M/uL | LAB | | | Cells | [address];[place] | | | | | Counted | [id number] | | | | + + + + + + | Hemoglobin | 9.0 (L)Comment: Testing | 11.3 - 15.5 | EXTERNAL | | | | performed at [facility];888 | g/dL | LAB | | | | [address];[place] | | | | | | [address] | | | | + + + + + + | Hematocrit, | 26.2 (L)Comment: Testing | 34.0 - 46.0 % | EXTERNAL | | | POC | performed at [facility];888 | | LAB | | | | [address];[place] | | | | | | [address] | | | | + + + + + + | MCV | 96.3Comment: Testing | 80.0 - 100.0 fl | EXTERNAL | | | | performed at [facility];[address] | | LAB | | | | [address];[place] | | | | | | [address] | | | | + + + + + + | MCH | 33.1Comment: Testing | 27.0 - 34.0 pg | EXTERNAL | | | | performed at [facility];[address] | | LAB | | | | [address];[place] | | | | | | [address] | | | | + + + + + + | MCHC | 34.4Comment: Testing | 32.0 - 35.5 | EXTERNAL | | | | performed at [facility];888 | g/dL | LAB | | | | [address];[place] | | | | | | [address] | | | | + + + + + + | RDW-CV | 47.7Comment: Testing | 37 - 53 fl | EXTERNAL | | | | performed at [facility];[address] | | LAB | | | | [address];[place] | | | | | | [address] | | | | + + + + + + | Platelet | 143 (L)Comment: Testing | 150 - 400 K/uL | EXTERNAL | | | Count | performed at [facility];888 | | LAB | | | Plasma | [address];[place] | | | | | | [address] | | | | + + + + + + | MPV | 7.3Comment: Testing | fl | EXTERNAL | | | | performed at [facility];[address] | | LAB | | | | [address];[place] | | | | | | [address] | | | | + + + + + + | Differentia | AUTOMATEDComment: | | EXTERNAL | | | l Type | Testing performed at | | LAB | | | | [facility];[address];[place] [address] | | | | + + + + + + | % Segmented | 57.41Comment: Testing | % | EXTERNAL | | | | performed at [facility];[address] | | LAB | | | Neutrophils | [address];[place] | | | | | | [address] | | | | + + + + + + | % | 12.22Comment: Testing | % | EXTERNAL | | | Lymphocytes | performed at [facility];[address] | | LAB | | | | [address];[place] | | | | | | [address] | | | | + + + + + + | % Monocytes | 15.25Comment: Testing | % | EXTERNAL | | | | performed at [facility];[address] | | LAB | | | | [address];[place] | | | | | | [address] | | | | + + + + + + | % | 14.04Comment: Testing | % | EXTERNAL | | | Eosinophils | performed at [facility];[address] | | LAB | | | | [address];[place] | | | | | | [address] | | | | + + + + + + | % Basophils | 1.08Comment: Testing | % | EXTERNAL | | | | performed at [facility];[address] | | LAB | | | | [address];[place] | | | | | | [address] | | | | + + + + + + | Absolute | 3.20Comment: Testing | 1.90 - 7.40 | EXTERNAL | | | Segmented | performed at [facility];888 | K/uL | LAB | | | Neutrophils | [address];[place] | | | | | | [address] | | | | + + + + + + | Absolute | 0.68 (L)Comment: Testing | 1.00 - 3.90 | EXTERNAL | | | Lymphocytes | performed at [facility];888 | K/uL | LAB | | | | [address];[place] | | | | | | [address] | | | | + + + + + + | Absolute | 0.85 (H)Comment: Testing | 0.00 - 0.80 | EXTERNAL | | | Monocytes | performed at [facility];888 | K/uL | LAB | | | | [address];[place] | | | | | | [address] | | | | + + + + + + | Absolute | 0.78 (H)Comment: Testing | 0.00 - 0.50 | EXTERNAL | | | Eosinophils | performed at [facility];888 | K/uL | LAB | | | | [address];[place] | | | | | | [address] | | | | + + + + + + | Absolute | 0.06Comment: Testing | 0.00 - 0.10 | EXTERNAL | | | Basophils | performed at [facility];[address] | K/uL | LAB | | | | [address];[place] | | | | | | [address] | | | | + + + + + + + + | Specimen | + + | Blood specimen | | (specimen) | + + + +---------+ + + | Performing | Address | City/State/Zipcode | Phone Number | | Organization | | | | + +---------+ + + | EXTERNAL LAB | | | | + +---------+ + + TSH (04/13/2016 8:15 AM PST) + + + + + + | Component | Value | Ref Range | Performed | Pathologist | | | | | At | Signature | + + + + + + | TSH | 5.41 (H)Comment: Testing | 0.45 - 5.10 | EXTERNAL | | | | performed at [facility];888 | uIU/mL | LAB | | | | [address];[place], [place] | | | | | | [address] | | | | + + + + + + + + | Specimen | + + | | + + + +---------+ + + | Performing | Address | City/State/Zipcode | Phone Number | | Organization | | | | + +---------+ + + | EXTERNAL LAB | | | | + +---------+ + + Comprehensive Metabolic Panel (04/13/2016 8:15 AM PST) + + + + + + | Component | Value | Ref Range | Performed | Pathologist | | | | | At | Signature | + + + + + + | Na | 138Comment: Testing | 135 - 145 | EXTERNAL | | | | performed at [facility];888 | mmol/L | LAB | | | | [address];[place] | | | | | | [address] | | | | + + + + + + | K | 3.9Comment: Testing | 3.5 - 4.9 | EXTERNAL | | | | performed at [facility];888 | mmol/L | LAB | | | | [address];[place] | | | | | | [address] | | | | + + + + + + | Cl | 103Comment: Testing | 99 - 109 mmol/L | EXTERNAL | | | | performed at [facility];[address] | | LAB | | | | [address];[place] | | | | | | [address] | | | | + + + + + + | CO2 | 25Comment: Testing | 23 - 32 mmol/L | EXTERNAL | | | | performed at [facility];[address] | | LAB | | | | [address];[place] | | | | | | [address] | | | | + + + + + + | Anion Gap | 14Comment: Testing | 5 - 20 mmol/L | EXTERNAL | | | | performed at [facility];[address] | | LAB | | | | [address];[place] | | | | | | [address] | | | | + + + + + + | Glucose, | 81Comment: Testing | 65 - 99 mg/dL | EXTERNAL | | | Fasting | performed at [facility];[address] | | LAB | | | | [address];[place] | | | | | | [address] | | | | + + + + + + | BUN | 5 (L)Comment: Testing | 8 - 25 mg/dL | EXTERNAL | | | | performed at [facility];[address] | | LAB | | | | [address];[place] | | | | | | [address] | | | | + + + + + + | Creatinine | 0.44 (L)Comment: Testing | 0.50 - 1.00 | EXTERNAL | | | | performed at [facility];888 | mg/dL | LAB | | | | [address];[place] | | | | | | [address] | | | | + + + + + + | BUN/Creatin | 10Comment: Testing | | EXTERNAL | | | ine Ratio | performed at [facility];[address] | | LAB | | | | [address];[place] | | | | | | [address] | | | | + + + + + + | Calcium | 7.4 (L)Comment: Testing | 8.5 - 10.5 | EXTERNAL | | | | performed at [facility];888 | mg/dL | LAB | | | | [address];[place] | | | | | | [address] | | | | + + + + + + | Protein, | 5.2 (L)Comment: Testing | 6.3 - 8.2 g/dL | EXTERNAL | | | Total | performed at [facility];[address] | | LAB | | | | [address];[place] | | | | | | [address] | | | | + + + + + + | Albumin | 1.5 (L)Comment: Testing | 3.6 - 5.0 g/dL | EXTERNAL | | | | performed at [facility];[address] | | LAB | | | | [address];[place] | | | | | | [address] | | | | + + + + + + | Globulin | 3.7Comment: Testing | 1.3 - 4.9 g/dL | EXTERNAL | | | | performed at [facility];[address] | | LAB | | | | [address];[place] | | | | | | [address] | | | | + + + + + + | A/G Ratio | 0.4 (L)Comment: Testing | 1.0 - 2.4 | EXTERNAL | | | | performed at [facility];[address] | | LAB | | | | [address];[place] | | | | | | [address] | | | | + + + + + + | Bilirubin | 0.8Comment: Testing | 0.1 - 1.5 mg/dL | EXTERNAL | | | Total | performed at [facility];[address] | | LAB | | | | [address];[place] | | | | | | [address] | | | | + + + + + + | ALP, | 115Comment: Testing | 35 - 115 U/L | EXTERNAL | | | External | performed at [facility];[address] | | LAB | | | | [address];[place] | | | | | | [address] | | | | + + + + + + | AST | 20Comment: Testing | 10 - 45 U/L | EXTERNAL | | | | performed at [facility];[address] | | LAB | | | | [address];[place] | | | | | | [address] | | | | + + + + + + | ALT | 11Comment: Testing | 10 - 65 U/L | EXTERNAL | | | | performed at [facility];[address] | | LAB | | | | [address];[place] | | | | | | [address] | | | | + + + [...] | | | | | | at [facility];[address];[place] [address] | | | | + + + + + + + + | Specimen | + + | Blood specimen | | (specimen) | + + + +---------+ + + | Performing | Address | City/State/Zipcode | Phone Number | | Organization | | | | + +---------+ + + | EXTERNAL LAB | | | | + +---------+ + + Ammonia (04/12/2016 9:35 AM PST) + + + + + + | Component | Value | Ref Range | Performed | Pathologist | | | | | At | Signature | + + + + + + | Ammonia | 62 (H)Comment: Testing | umol/L | EXTERNAL | | | | performed at [facility];[address] | | LAB | | | | [address];[place], [place] | | | | | | [address] | | | | + + + + + + + + | Specimen | + + | Blood specimen | | (specimen) | + + + +---------+ + + | Performing | Address | City/State/Zipcode | Phone Number | | Organization | | | | + +---------+ + + | EXTERNAL LAB | | | | + +---------+ + + Phosphorus (04/12/2016 7:52 AM PST) + + + + + + | Component | Value | Ref Range | Performed | Pathologist | | | | | At | Signature | + + + + + + | PHOSPHORUS | 2.8Comment: Testing | 2.3 - 4.8 mg/dL | EXTERNAL | | | | performed at [facility], [address] | | LAB | | | | [address], | | | | | | [place] [address] | | | | + + + + + + + + | Specimen | + + | Blood specimen | | (specimen) | + + + +---------+ + + | Performing | Address | City/State/Zipcode | Phone Number | | Organization | | | | + +---------+ + + | EXTERNAL LAB | | | | + +---------+ + + Magnesium (04/12/2016 7:52 AM PST) + + + + + + | Component | Value | Ref Range | Performed | Pathologist | | | | | At | Signature | + + + + + + | Magnesium | 1.4 (L)Comment: Testing | 1.7 - 2.4 mg/dL | EXTERNAL | | | | performed at [facility], [address] | | LAB | | | | [address], | | | | | | [place] [address] | | | | + + + [...] + +---------+ + + Comprehensive Metabolic Panel (04/12/2016 7:52 AM PST) + + + + + + | Component | Value | Ref Range | Performed | Pathologist | | | | | At | Signature | + + + + + + | Na | 140Comment: Testing | 135 - 145 | EXTERNAL | | | | performed at [facility], [address] | mmol/L | LAB | | | | [address], | | | | | | [place] [address] | | | | + + + + + + | K | 3.8Comment: Testing | 3.5 - 4.9 | EXTERNAL | | | | performed at [facility], [address] | mmol/L | LAB | | | | [address], | | | | | | [place] [address] | | | | + + + + + + | Cl | 105Comment: Testing | 99 - 109 mmol/L | EXTERNAL | | | | performed at [facility], [address] | | LAB | | | | [address], | | | | | | [place] [address] | | | | + + + + + + | CO2 | 25Comment: Testing | 23 - 32 mmol/L | EXTERNAL | | | | performed at [facility], [address] | | LAB | | | | [address], | | | | | | [place] [address] | | | | + + + + + + | Anion Gap | 14Comment: Testing | 5 - 20 mmol/L | EXTERNAL | | | | performed at [facility], [address] | | LAB | | | | [address], | | | | | | [place] [address] | | | | + + + + + + | Glucose, | 94Comment: Testing | 65 - 99 mg/dL | EXTERNAL | | | Fasting | performed at [facility], [address] | | LAB | | | | [address], | | | | | | [place] [address] | | | | + + + + + + | BUN | 3 (L)Comment: Testing | 8 - 25 mg/dL | EXTERNAL | | | | performed at [facility], [address] | | LAB | | | | [address], | | | | | | [place] [address] | | | | + + + + + + | Creatinine | 0.5Comment: Testing | 0.50 - 1.00 | EXTERNAL | | | | performed at [facility], [address] | mg/dL | LAB | | | | [address], | | | | | | [place] [address] | | | | + + + + + + | BUN/Creatin | 6Comment: Testing | | EXTERNAL | | | ine Ratio | performed at [facility], [address] | | LAB | | | | [address], | | | | | | [place] [address] | | | | + + + + + + | Calcium | 8.0 (L)Comment: Testing | 8.5 - 10.5 | EXTERNAL | | | | performed at [facility], [address] | mg/dL | LAB | | | | [address], | | | | | | [place] [address] | | | | + + + + + + | Protein, | 5.7 (L)Comment: Testing | 6.3 - 8.2 g/dL | EXTERNAL | | | Total | performed at [facility], [address] | | LAB | | | [address], | | | | | | [place] [id number] | | | | + + + + + + | Albumin | 1.7 (L)Comment: Testing | 3.6 - 5.0 g/dL | EXTERNAL | | | | performed at [facility], [address] | | LAB | | | | [address], | | | | | | [place] [address] | | | | + + + + + + | Globulin | 4.0Comment: Testing | 1.3 - 4.9 g/dL | EXTERNAL | | | | performed at [facility], [address] | | LAB | | | | [address], | | | | | | [place] [id number] | | | | + + + + + + | A/G Ratio | 0.4 (L)Comment: Testing | 1.0 - 2.4 | EXTERNAL | | | | performed at [facility], [address] | | LAB | | | | [address], | | | | | | [place] [address] | | | | + + + + + + | Bilirubin | 0.6Comment: Testing | 0.1 - 1.5 mg/dL | EXTERNAL | | | Total | performed at [facility], [address] | | LAB | | | [address], | | | | | | [place] [address] | | | | + + + + + + | ALP, | 153 (H)Comment: Testing | 35 - 115 U/L | EXTERNAL | | | External | performed at [facility], [address] | | LAB | | | | [address], | | | | | | [place] [address] | | | | + + + + + + | AST | 22Comment: Testing | 10 - 45 U/L | EXTERNAL | | | | performed at [facility], [address] | | LAB | | | | [address], | | | | | | [place] [address] | | | | + + + + + + | ALT | 13Comment: Testing | 10 - 65 U/L | EXTERNAL | | | | performed at [facility], [address] | | LAB | | | | [address], | | | | | | [place] [address] | | | | + + + [...] | | | | | | at [facility], [address] | | | | | | [address], | | | | | | [place] [address] | | | | + + + + + + + + | Specimen | + + | Blood specimen | | (specimen) | + + + +---------+ + + | Performing | Address | City/State/Zipcode | Phone Number | | Organization | | | | + +---------+ + + | EXTERNAL LAB | | | | + +---------+ + + Ammonia (04/11/2016 11:23 AM PST) + + + + + + | Component | Value | Ref Range | Performed | Pathologist | | | | | At | Signature | + + + + + + | Ammonia | 109 (H)Comment: Testing | umol/L | EXTERNAL | | | | performed at [facility];[address] | | LAB | | | | [address];[place], [place] | | | | | | [address] | | | | + + + [...] + +---------+ + + External Lab: CBC (04/11/2016 6:01 AM PST) + + + + + + | Component | Value | Ref Range | Performed | Pathologist | | | | | At | Signature | + + + + + + | WBC | 4.27Comment: Testing | 3.80 - 11.00 | EXTERNAL | | | | performed at [facility];[address] | K/uL | LAB | | | | [address];[place] | | | | | | [address] | | | | + + + + + + | Non- | 2.50 (L)Comment: Testing | 3.70 - 5.10 | EXTERNAL | | | Red Blood | performed at [facility];[address] | M/uL | LAB | | | Cells | [address];[place] | | | | | Counted | [address] | | | | + + + + + + | Hemoglobin | 8.2 (L)Comment: Testing | 11.3 - 15.5 | EXTERNAL | | | | performed at [facility];888 | g/dL | LAB | | | | [address];[place] | | | | | | [address] | | | | + + + + + + | Hematocrit, | 24.1 (L)Comment: Testing | 34.0 - 46.0 % | EXTERNAL | | | POC | performed at [facility];[address] | | LAB | | | | [address];[place] | | | | | | [address] | | | | + + + + + + | MCV | 96.4Comment: Testing | 80.0 - 100.0 fl | EXTERNAL | | | | performed at [facility];[address] | | LAB | | | | [address];[place] | | | | | | [address] | | | | + + + + + + | MCH | 33.0Comment: Testing | 27.0 - 34.0 pg | EXTERNAL | | | | performed at [facility];[address] | | LAB | | | | [address];[place] | | | | | | [address] | | | | + + + + + + | MCHC | 34.2Comment: Testing | 32.0 - 35.5 | EXTERNAL | | | | performed at [facility];888 | g/dL | LAB | | | | [address];[place] | | | | | | [address] | | | | + + + + + + | RDW-CV | 47.7Comment: Testing | 37 - 53 fl | EXTERNAL | | | | performed at [facility];[address] | | LAB | | | | [address];[place] | | | | | | [address] | | | | + + + + + + | Platelet | 90 (L)Comment: Testing | 150 - 400 K/uL | EXTERNAL | | | Count | performed at [facility];[address] | | LAB | | | Plasma | [address];[place] | | | | | | [address] | | | | + + + + + + | MPV | 7.4Comment: Testing | fl | EXTERNAL | | | | performed at [facility];[address] | | LAB | | | | [address];[place] | | | | | | [address] | | | | + + + + + + | Differentia | AUTOMATEDComment: | | EXTERNAL | | | l Type | Testing performed at | | LAB | | | | [facility];[address];[place] [address] | | | | + + + + + + | % Segmented | 59.35Comment: Testing | % | EXTERNAL | | | | performed at [facility];[address] | | LAB | | | Neutrophils | [address];[place] | | | | | | [address] | | | | + + + + + + | % | 9.13Comment: Testing | % | EXTERNAL | | | Lymphocytes | performed at [facility];[address] | | LAB | | | | [address];[place] | | | | | | [address] | | | | + + + + + + | % Monocytes | 14.62Comment: Testing | % | EXTERNAL | | | | performed at [facility];[address] | | LAB | | | | [address];[place] | | | | | | [address] | | | | + + + + + + | % | 15.46Comment: Testing | % | EXTERNAL | | | Eosinophils | performed at [facility];[address] | | LAB | | | | [address];[place] | | | | | | [address] | | | | + + + + + + | % Basophils | 1.44Comment: Testing | % | EXTERNAL | | | | performed at [facility];[address] | | LAB | | | | [address];[place] | | | | | | [address] | | | | + + + + + + | Absolute | 2.53Comment: Testing | 1.90 - 7.40 | EXTERNAL | | | Segmented | performed at [facility];888 | K/uL | LAB | | | Neutrophils | [address];[place] | | | | | | [address] | | | | + + + + + + | Absolute | 0.39 (L)Comment: Testing | 1.00 - 3.90 | EXTERNAL | | | Lymphocytes | performed at [facility];[address] | K/uL | LAB | | | | [address];[place] | | | | | | [address] | | | | + + + + + + | Absolute | 0.62Comment: Testing | 0.00 - 0.80 | EXTERNAL | | | Monocytes | performed at [facility];[address] | K/uL | LAB | | | | [address];[place] | | | | | | [address] | | | | + + + + + + | Absolute | 0.66 (H)Comment: Testing | 0.00 - 0.50 | EXTERNAL | | | Eosinophils | performed at [facility];[address] | K/uL | LAB | | | | [address];[place] | | | | | | [address] | | | | + + + + + + | Absolute | 0.06Comment: Testing | 0.00 - 0.10 | EXTERNAL | | | Basophils | performed at [facility];[address] | K/uL | LAB | | | | [address];[place], [place] | | | | | | [address] | | | | + + + + + + + + | Specimen | + + | Blood specimen | | (specimen) | + + + +---------+ + + | Performing | Address | City/State/Zipcode | Phone Number | | Organization | | | | + +---------+ + + | EXTERNAL LAB | | | | + +---------+ + + Phosphorus (04/11/2016 6:01 AM PST) + + + + + + | Component | Value | Ref Range | Performed | Pathologist | | | | | At | Signature | + + + + + + | PHOSPHORUS | 3.1Comment: Testing | 2.3 - 4.8 mg/dL | EXTERNAL | | | | performed at [facility] | | LAB | | | | [address] [facility];[place], [place] | | | | | | [id number] | | | | + + + + + + + + | Specimen | + + | Blood specimen | | (specimen) | + + + +---------+ + + | Performing | Address | City/State/Zipcode | Phone Number | | Organization | | | | + +---------+ + + | EXTERNAL LAB | | | | + +---------+ + + Magnesium (04/11/2016 6:01 AM PST) + + + + + + | Component | Value | Ref Range | Performed | Pathologist | | | | | At | Signature | + + + + + + | Magnesium | 1.3 (L)Comment: Testing | 1.7 - 2.4 mg/dL | EXTERNAL | | | | performed at [facility];[address] | | LAB | | | | [address];[place] | | | | | | [id number] | | | | + + + [...] + +---------+ + + Comprehensive Metabolic Panel (04/11/2016 6:01 AM PST) + + + + + + | Component | Value | Ref Range | Performed | Pathologist | | | | | At | Signature | + + + + + + | Na | 139Comment: Testing | 135 - 145 | EXTERNAL | | | | performed at [facility];[address] | mmol/L | LAB | | | | [address];[place] | | | | | | [address] | | | | + + + + + + | K | 3.6Comment: Testing | 3.5 - 4.9 | EXTERNAL | | | | performed at [facility];[address] | mmol/L | LAB | | | | [address];[place] | | | | | | [address] | | | | + + + + + + | Cl | 105Comment: Testing | 99 - 109 mmol/L | EXTERNAL | | | | performed at [facility];[address] | | LAB | | | | [address];[place] | | | | | | [address] | | | | + + + + + + | CO2 | 22 (L)Comment: Testing | 23 - 32 mmol/L | EXTERNAL | | | | performed at [facility];[address] | | LAB | | | | [address];[place] | | | | | | [address] | | | | + + + + + + | Anion Gap | 15Comment: Testing | 5 - 20 mmol/L | EXTERNAL | | | | performed at [facility];[address] | | LAB | | | | [address];[place] | | | | | | [address] | | | | + + + + + + | Glucose, | 89Comment: Testing | 65 - 99 mg/dL | EXTERNAL | | | Fasting | performed at [facility];[address] | | LAB | | | | [address];[place] | | | | | | [phone] | | | | + + + + + + | BUN | 3 (L)Comment: Testing | 8 - 25 mg/dL | EXTERNAL | | | | performed at [facility];[address] | | LAB | | | | [address];[place] | | | | | | [address] | | | | + + + + + + | Creatinine | 0.43 (L)Comment: Testing | 0.50 - 1.00 | EXTERNAL | | | | performed at [facility];[address] | mg/dL | LAB | | | | [address];[place] | | | | | | [address] | | | | + + + + + + | BUN/Creatin | 8Comment: Testing | | EXTERNAL | | | ine Ratio | performed at [facility];[address] | | LAB | | | | [address];[place] | | | | | | [address] | | | | + + + + + + | Calcium | 7.2 (L)Comment: Testing | 8.5 - 10.5 | EXTERNAL | | | | performed at [facility];888 | mg/dL | LAB | | | | [address];[place] [place] | | | | | | [address] | | | | + + + + + + | Protein, | 5.3 (L)Comment: Testing | 6.3 - 8.2 g/dL | EXTERNAL | | | Total | performed at [facility];[address] | | LAB | | | | [address];[place] | | | | | | [address] | | | | + + + + + + | Albumin | 1.6 (L)Comment: Testing | 3.6 - 5.0 g/dL | EXTERNAL | | | | performed at [facility];[address] | | LAB | | | | [address];[place] | | | | | | [address] | | | | + + + + + + | Globulin | 3.6Comment: Testing | 1.3 - 4.9 g/dL | EXTERNAL | | | | performed at [facility];[address] | | LAB | | | | [address];[place] | | | | | | [address] | | | | + + + + + + | A/G Ratio | 0.5 (L)Comment: Testing | 1.0 - 2.4 | EXTERNAL | | | | performed at [facility];[address] | | LAB | | | | [address];[place] | | | | | | [address] | | | | + + + + + + | Bilirubin | 1.3Comment: Testing | 0.1 - 1.5 mg/dL | EXTERNAL | | | Total | performed at [facility];[address] | | LAB | | | | [address];[place] | | | | | | [address] | | | | + + + + + + | ALP, | 123 (H)Comment: Testing | 35 - 115 U/L | EXTERNAL | | | External | performed at [facility];[address] | | LAB | | | | [address];[place] | | | | | | [address] | | | | + + + + + + | AST | 24Comment: Testing | 10 - 45 U/L | EXTERNAL | | | | performed at [facility];[address] | | LAB | | | | [address];[place] | | | | | | [address] | | | | + + + + + + | ALT | 12Comment: Testing | 10 - 65 U/L | EXTERNAL | | | | performed at [facility];[address] | | LAB | | | | [address];[place], [place] | | | | | | [address] | | | | + + + [...] | | | | | | at [facility];[address];[place] [address] | | | | + + + + + + + + | Specimen | + + | Blood specimen | | (specimen) | + + + +---------+ + + | Performing | Address | City/State/Zipcode | Phone Number | | Organization | | | | + +---------+ + + | EXTERNAL LAB | | | | + +---------+ + + Potassium (04/10/2016 8:49 PM PST) + + + + + + | Component | Value | Ref Range | Performed | Pathologist | | | | | At | Signature | + + + + + + | K | 3.4 (L)Comment: Testing | 3.5 - 4.9 | EXTERNAL | | | | performed at [facility];[address] | mmol/L | LAB | | | | [address];[place] | | | | | | [address] | | | | + + + + + + + + | Specimen | + + | Blood specimen | | (specimen) | + + + +---------+ + + | Performing | Address | City/State/Zipcode | Phone Number | | Organization | | | | + +---------+ + + | EXTERNAL LAB | | | | + +---------+ + + Phosphorus (04/10/2016 8:49 PM PST) + + + + + + | Component | Value | Ref Range | Performed | Pathologist | | | | | At | Signature | + + + + + + | PHOSPHORUS | 3.2Comment: Testing | 2.3 - 4.8 mg/dL | EXTERNAL | | | | performed at [facility];[address] | | LAB | | | | [address];[place], [place] | | | | | | [address] | | | | + + + + + + + + | Specimen | + + | Blood specimen | | (specimen) | + + + +---------+ + + | Performing | Address | City/State/Zipcode | Phone Number | | Organization | | | | + +---------+ + + | EXTERNAL LAB | | | | + +---------+ + + Magnesium (04/10/2016 8:49 PM PST) + + + + + + | Component | Value | Ref Range | Performed | Pathologist | | | | | At | Signature | + + + + + + | Magnesium | 1.0 (L)Comment: Testing | 1.7 - 2.4 mg/dL | EXTERNAL | | | | performed at [facility];[address] | | LAB | | | | [address];[place], [place] | | | | | | [address] | | | | + + + + + + + + | Specimen | + + | Blood specimen | | (specimen) | + + + +---------+ + + | Performing | Address | City/State/Zipcode | Phone Number | | Organization | | | | + +---------+ + + | EXTERNAL LAB | | | | + +---------+ + + Ammonia (04/10/2016 5:02 AM PST) + + + + + + | Component | Value | Ref Range | Performed | Pathologist | | | | | At | Signature | + + + + + + | Ammonia | 51 (H)Comment: Testing | umol/L | EXTERNAL | | | | performed at [facility];[address] | | LAB | | | | [address];[place], [place] | | | | | | [address] | | | | + + + + + + + + | Specimen | + + | Blood specimen | | (specimen) | + + + +---------+ + + | Performing | Address | City/State/Zipcode | Phone Number | | Organization | | | | + +---------+ + + | EXTERNAL LAB | | | | + +---------+ + + PTT (04/10/2016 5:01 AM PST) + + + + + + | Component | Value | Ref Range | Performed | Pathologist | | | | | At | Signature | + + + + + + | aPTT, | 32Comment: Testing | 23 - 32 seconds | EXTERNAL | | | Patient | performed at [facility];[address] | | LAB | | | | [address];[place] | | | | | | [address] | | | | + + + + + + + + | Specimen | + + | Blood specimen | | (specimen) | + + + +---------+ + + | Performing | Address | City/State/Zipcode | Phone Number | | Organization | | | | + +---------+ + + | EXTERNAL LAB | | | | + +---------+ + + Protime INR (04/10/2016 5:01 AM PST) + + + + + + | Component | Value | Ref Range | Performed | Pathologist | | | | | At | Signature | + + + + + + | INR | 1.3Comment: REFERENCE | | EXTERNAL | | | [...] | | | | | performed at [facility] | | | | | | [facility];[place], [place] | | | | | | [address] | | | | + + + [...] + +---------+ + + External Lab: CBC (04/10/2016 5:01 AM PST) + + + + + + | Component | Value | Ref Range | Performed | Pathologist | | | | | At | Signature | + + + + + + | WBC | 4.31Comment: Testing | 3.80 - 11.00 | EXTERNAL | | | | performed at [facility], [address] | K/uL | LAB | | | | [address], | | | | | | [place] [address] | | | | + + + + + + | Non- | 2.59 (L)Comment: Testing | 3.70 - 5.10 | EXTERNAL | | | Red Blood | performed at [facility], [address] | M/uL | LAB | | | Cells | [address], | | | | | Counted | [place] [address] | | | | + + + + + + | Hemoglobin | 8.6 (L)Comment: Testing | 11.3 - 15.5 | EXTERNAL | | | | performed at [facility], [address] | g/dL | LAB | | | | [address], | | | | | | [place] [address] | | | | + + + + + + | Hematocrit, | 25.3 (L)Comment: Testing | 34.0 - 46.0 % | EXTERNAL | | | POC | performed at [facility], [address] | | LAB | | | | [address], | | | | | | [place] [address] | | | | + + + + + + | MCV | 97.7Comment: Testing | 80.0 - 100.0 fl | EXTERNAL | | | | performed at [facility], [address] | | LAB | | | | [address], | | | | | | [place] [address] | | | | + + + + + + | MCH | 33.0Comment: Testing | 27.0 - 34.0 pg | EXTERNAL | | | | performed at [facility], [address] | | LAB | | | | [address], | | | | | | [place] [address] | | | | + + + + + + | MCHC | 33.8Comment: Testing | 32.0 - 35.5 | EXTERNAL | | | | performed at [facility], [address] | g/dL | LAB | | | | [address], | | | | | | [place] [address] | | | | + + + + + + | RDW-CV | 47.7Comment: Testing | 37 - 53 fl | EXTERNAL | | | | performed at [facility], [address] | | LAB | | | | [address], | | | | | | [place] [address] | | | | + + + + + + | Platelet | 118 (L)Comment: Testing | 150 - 400 K/uL | EXTERNAL | | | Count | performed at [facility], [address] | | LAB | | | Plasma | [address], | | | | | | [place] [address] | | | | + + + + + + | MPV | 7.1Comment: Testing | fl | EXTERNAL | | | | performed at [facility], [address] | | LAB | | | | [address], | | | | | | [place] [address] | | | | + + + + + + | Differentia | AUTOMATEDComment: | | EXTERNAL | | | l Type | Testing performed at | | LAB | | | | [facility], [address] | | | | | | [place] | | | | | | [address] | | | | + + + + + + | % Segmented | 53.97Comment: Testing | % | EXTERNAL | | | | performed at [facility], [address] | | LAB | | | Neutrophils | [address], | | | | | | [place] [address] | | | | + + + + + + | % | 11.10Comment: Testing | % | EXTERNAL | | | Lymphocytes | performed at [facility], [address] | | LAB | | | | [address], | | | | | | [place] [address] | | | | + + + + + + | % Monocytes | 15.59Comment: Testing | % | EXTERNAL | | | | performed at [facility], [address] | | LAB | | | | [address], | | | | | | [place] [address] | | | | + + + + + + | % | 18.27Comment: Testing | % | EXTERNAL | | | Eosinophils | performed at [facility], [address] | | LAB | | | | [address], | | | | | | [place] [address] | | | | + + + + + + | % Basophils | 1.07Comment: Testing | % | EXTERNAL | | | | performed at [facility], [address] | | LAB | | | | [address], | | | | | | [place] [address] | | | | + + + + + + | Absolute | 2.33Comment: Testing | 1.90 - 7.40 | EXTERNAL | | | Segmented | performed at [facility], [address] | K/uL | LAB | | | Neutrophils | [address], | | | | | | [place] [address] | | | | + + + + + + | Absolute | 0.48 (L)Comment: Testing | 1.00 - 3.90 | EXTERNAL | | | Lymphocytes | performed at [facility], [address] | K/uL | LAB | | | | [address], | | | | | | [place] [address] | | | | + + + + + + | Absolute | 0.67Comment: Testing | 0.00 - 0.80 | EXTERNAL | | | Monocytes | performed at [facility], [address] | K/uL | LAB | | | | [address], | | | | | | [place], [place] [address] | | | | + + + + + + | Absolute | 0.79 (H)Comment: Testing | 0.00 - 0.50 | EXTERNAL | | | Eosinophils | performed at [facility], [address] | K/uL | LAB | | | | [address], | | | | | | [place], [place] [address] | | | | + + + + + + | Absolute | 0.05Comment: Testing | 0.00 - 0.10 | EXTERNAL | | | Basophils | performed at [facility], [address] | K/uL | LAB | | | | [address], | | | | | | [place], [place] [address] | | | | + + + + + + + + | Specimen | + + | Blood specimen | | (specimen) | + + + +---------+ + + | Performing | Address | City/State/Zipcode | Phone Number | | Organization | | | | + +---------+ + + | EXTERNAL LAB | | | | + +---------+ + + Phosphorus (04/10/2016 5:01 AM PST) + + + + + + | Component | Value | Ref Range | Performed | Pathologist | | | | | At | Signature | + + + + + + | PHOSPHORUS | 3.6Comment: Testing | 2.3 - 4.8 mg/dL | EXTERNAL | | | | performed at [facility], [address] | | LAB | | | | [address], | | | | | | [place] [address] | | | | + + + + + + + + | Specimen | + + | Blood specimen | | (specimen) | + + + +---------+ + + | Performing | Address | City/State/Zipcode | Phone Number | | Organization | | | | + +---------+ + + | EXTERNAL LAB | | | | + +---------+ + + Magnesium (04/10/2016 5:01 AM PST) + + + + + + | Component | Value | Ref Range | Performed | Pathologist | | | | | At | Signature | + + + + + + | Magnesium | 1.7Comment: Testing | 1.7 - 2.4 mg/dL | EXTERNAL | | | | performed at [facility], [address] | | LAB | | | | [address], | | | | | | [place] [address] | | | | + + + + + + + + | Specimen | + + | Blood specimen | | (specimen) | + + + +---------+ + + | Performing | Address | City/State/Zipcode | Phone Number | | Organization | | | | + +---------+ + + | EXTERNAL LAB | | | | + +---------+ + + Ethanol (04/10/2016 5:01 AM PST) + + + + + + | Component | Value | Ref Range | Performed | Pathologist | | | | | At | Signature | + + + + + + | Ethyl | 101 (H)Comment: Testing | mg/dL | EXTERNAL | | | Alcohol | performed at [facility];[address] | | LAB | | | | [address] [facility];[place], [place] | | | | | | [address] | | | | + + + [...] + +---------+ + + Comprehensive Metabolic Panel (04/10/2016 5:01 AM PST) + + + + + + | Component | Value | Ref Range | Performed | Pathologist | | | | | At | Signature | + + + + + + | Na | 135Comment: Testing | 135 - 145 | EXTERNAL | | | | performed at [facility], [address] | mmol/L | LAB | | | | [address], | | | | | | [place] [address] | | | | + + + + + + | K | 3.3 (L)Comment: Testing | 3.5 - 4.9 | EXTERNAL | | | | performed at [facility], [address] | mmol/L | LAB | | | | [address], | | | | | | [place] [address] | | | | + + + + + + | Cl | 102Comment: Testing | 99 - 109 mmol/L | EXTERNAL | | | | performed at [facility], [address] | | LAB | | | | [address], | | | | | | [place] [address] | | | | + + + + + + | CO2 | 23Comment: Testing | 23 - 32 mmol/L | EXTERNAL | | | | performed at [facility], [address] | | LAB | | | | [address], | | | | | | [place] [address] | | | | + + + + + + | Anion Gap | 13Comment: Testing | 5 - 20 mmol/L | EXTERNAL | | | | performed at [facility], [address] | | LAB | | | | [address], | | | | | | [place] [address] | | | | + + + + + + | Glucose, | 88Comment: Testing | 65 - 99 mg/dL | EXTERNAL | | | Fasting | performed at [facility], [address] | | LAB | | | | [address], | | | | | | [place] [address] | | | | + + + + + + | BUN | 4 (L)Comment: Testing | 8 - 25 mg/dL | EXTERNAL | | | | performed at [facility], [address] | | LAB | | | | [address], | | | | | | [place] [address] | | | | + + + + + + | Creatinine | 0.4 (L)Comment: Testing | 0.50 - 1.00 | EXTERNAL | | | | performed at [facility], [address] | mg/dL | LAB | | | | [address], | | | | | | [place] [address] | | | | + + + + + + | BUN/Creatin | 10Comment: Testing | | EXTERNAL | | | ine Ratio | performed at [facility], [address] | | LAB | | | | [address], | | | | | | [place] [address] | | | | + + + + + + | Calcium | 7.7 (L)Comment: Testing | 8.5 - 10.5 | EXTERNAL | | | | performed at [facility], [address] | mg/dL | LAB | | | | [address], | | | | | | [place] [address] | | | | + + + + + + | Protein, | 5.7 (L)Comment: Testing | 6.3 - 8.2 g/dL | EXTERNAL | | | Total | performed at [facility], [address] | | LAB | | | | [address], | | | | | | [place] [address] | | | | + + + + + + | Albumin | 1.7 (L)Comment: Testing | 3.6 - 5.0 g/dL | EXTERNAL | | | | performed at [facility], [address] | | LAB | | | | [address], | | | | | | [place] [address] | | | | + + + + + + | Globulin | 4.0Comment: Testing | 1.3 - 4.9 g/dL | EXTERNAL | | | | performed at [facility], [address] | | LAB | | | | [address], | | | | | | [place] [address] | | | | + + + + + + | A/G Ratio | 0.4 (L)Comment: Testing | 1.0 - 2.4 | EXTERNAL | | | | performed at [facility], [address] | | LAB | | | | [address], | | | | | | [place] [address] | | | | + + + + + + | Bilirubin | 0.8Comment: Testing | 0.1 - 1.5 mg/dL | EXTERNAL | | | Total | performed at [facility], [address] | | LAB | | | | [address], | | | | | | [place] [address] | | | | + + + + + + | ALP, | 162 (H)Comment: Testing | 35 - 115 U/L | EXTERNAL | | | External | performed at [facility], [address] | | LAB | | | | [address], | | | | | | [place] [address] | | | | + + + + + + | AST | 29Comment: Testing | 10 - 45 U/L | EXTERNAL | | | | performed at [facility], [address] | | LAB | | | | [address], | | | | | | [place] [address] | | | | + + + + + + | ALT | 13Comment: Testing | 10 - 65 U/L | EXTERNAL | | | | performed at [facility], [address] | | LAB | | | | [address] [facility], | | | | | | [place] [phone] | | | | + + + [...] | | | | | | at [facility], [address] | | | | | | [facility], | | | | | | [place] [address] | | | | + + + + + + + + | Specimen | + + | Blood specimen | | (specimen) | + + + +---------+ + + | Performing | Address | City/State/Zipcode | Phone Number | | Organization | | | | + +---------+ + + | EXTERNAL LAB | | | | + +---------+ + + Urinalysis, Reflex Microscopic and/or Culture (04/09/2016 10:29 PM PST) + + + + + + | Component | Value | Ref Range | Performed | Pathologist | | | | | At | Signature | + + + + + + | Color | YELLOWComment: Testing | | EXTERNAL | | | | performed at [facility] | | LAB | | | | [address];[place] | | | | | | [address] | | | | + + + + + + | Clarity, | CLEARComment: Testing | | EXTERNAL | | | Urine | performed at [facility];[address] | | LAB | | | | [address];[place] | | | | | | [address] | | | | + + + + + + | Specific | 1.003Comment: Testing | 1.002 - 1.030 | EXTERNAL | | | [place], | performed at [facility];[address] | | LAB | | | Urine | [address];[place] | | | | | | [address] | | | | + + + + + + | Leukocyte | NEGATIVEComment: Testing | | EXTERNAL | | | Esterase, | performed at [facility];[address] | | LAB | | | Urine | [address];[place] | | | | | | [address] | | | | + + + + + + | Nitrite, | NEGATIVEComment: Testing | | EXTERNAL | | | Urine | performed at [facility];[address] | | LAB | | | | [address];[place] | | | | | | [address] | | | | + + + + + + | Urobilinoge | NORMALComment: Testing | mg/dL | EXTERNAL | | | n, Urine | performed at [facility];[address] | | LAB | | | | [address];[place] | | | | | | [address] | | | | + + + + + + | Protein, | NEGATIVEComment: Testing | mg/dL | EXTERNAL | | | Urine | performed at [facility];[address] | | LAB | | | | [address];[place] | | | | | | [address] | | | | + + + + + + | pH, Urine | 6.0Comment: Testing | 5.0 - 8.0 | EXTERNAL | | | | performed at [facility];[address] | | LAB | | | | [address];[place] | | | | | | [address] | | | | + + + + + + | Blood, | SMALL (A)Comment: | | EXTERNAL | | | Urine | Testing performed at | | LAB | | | | [facility];[address];[place] [address] | | | | + + + + + + | Ketones | NEGATIVEComment: Testing | mg/dL | EXTERNAL | | | | performed at [facility];[address] | | LAB | | | | [address];[place] | | | | | | [address] | | | | + + + + + + | Bilirubin, | NEGATIVEComment: Testing | | EXTERNAL | | | Urine | performed at [facility];[address] | | LAB | | | | [address];[place] | | | | | | [address] | | | | + + + + + + | Glucose, | NEGATIVEComment: Testing | mg/dL | EXTERNAL | | | Urine | performed at [facility];[address] | | LAB | | | | [address];[place] | | | | | | [address] | | | | + + + + + + | WBC, UA | 0-2Comment: Testing | 0 - 5 /hpf | EXTERNAL | | | | performed at [facility];[address] | | LAB | | | | [address];[place] | | | | | | [address] | | | | + + + + + + | RBC, UA | 3-5Comment: Testing | 0 - 5 /hpf | EXTERNAL | | | | performed at [facility];[address] | | LAB | | | | [address];[place] | | | | | | [address] | | | | + + + + + + | Bacteria, | NONE SEENComment: | | EXTERNAL | | | UA | Testing performed at | | LAB | | | | [facility];[address] | | | | | | [address];[place] [address] | | | | + + + + + + | Epithelial | 11-15Comment: Testing | /lpf | EXTERNAL | | | Cells | performed at [facility];[address] | | LAB | | | | [address];[place] | | | | | | [address] | | | | + + + + + + | Mucus, | 1+Comment: Testing | | EXTERNAL | | | Urine | performed at [facility];[address] | | LAB | | | | [address];[place] | | | | | | [address] | | | | + + + + + + + + | Specimen | + + | | + + + +---------+ + + | Performing | Address | City/State/Zipcode | Phone Number | | Organization | | | | + +---------+ + + | EXTERNAL LAB | | | | + +---------+ + + US Abdomen Limited (04/09/2016 8:28 PM PST) + + | Specimen | + + | | + + + + + | Impressions | Performed At | + + + | 1. Cirrhotic liver morphology with moderate to large amount of | | | ascites. 2. Hypoechoic vascular masses within the liver are | | | concerning for HCC versus metastatic disease. Further evaluation with | | | nonemergent MRI of the liver is recommended. 3. Pulsatile and/or | | | diminished flow of the portal vein 4. Cholelithiasis. 5. The | | | entire pancreas is obscured by bowel gas and not well evaluated. | | | | | + + + + + + | Narrative | Performed At | + + + | SHAILA SON 1970 US ABDOMEN LIMITED 04/09/2016 8:28 PM | | | HISTORY: Abdominal pain, distention COMPARISON: 10/05/2014 and | | | 03/25/2013 TECHNIQUE: Transabdominal ultrasound of the right upper | | | quadrant, grayscale and color flow evaluation. FINDINGS: The | | | liver appears shrunken, increased in echogenicity with nodular | | | contours, likely secondary to cirrhosis. There is a area of | | | heterogeneous decreased echogenicity within the right hepatic lobe | | | which measures 4.4 x 3.7 x 2.8 cm (image 26) and demonstrates | | | internal vascularity. A smaller hypoechoic heterogeneous areas | | | visualized more medially measuring 1.8 x 1.5 x 1.6 cm (image 56) also | | | demonstrating blood flow. Portal venous and central hepatic artery | | | flow was not able to be detected intrahepatically. Extrahepatic | | | portal vein evaluation demonstrates pulsatility and possibly | | | diminished flow. The common bile duct is normal in diameter was | | | not obtained.. The gallbladder is contracted and contains multiple | | | stones. The sonographic Chun sign was negative. The common bile | | | duct measures 7 mm. The entire pancreas is obscured by bowel gas. | | | There is a moderate to large amount of ascites. There is no | | | hydronephrosis of the right kidney. | | + + + + + | Procedure Note | + + | Edgardo Dean Conversion - 11/20/2018 9:39 PM JOHN SON1970US ABDOMEN | | LIMITED04/09/2016 8:28 PM HISTORY: Abdominal pain, distention COMPARISON: 10/05/2014 and | | 03/25/2013 TECHNIQUE: Transabdominal ultrasound of the right upper quadrant, grayscale | | and color flow evaluation. FINDINGS: The liver appears shrunken, increased in | | echogenicity with nodular contours, likely secondary to cirrhosis. There is a area of | | heterogeneous decreased echogenicity within the right hepatic lobe which measures 4.4 x | | 3.7 x 2.8 cm (image 26) and demonstrates internal vascularity. A smaller hypoechoic | | heterogeneous areas visualized more medially measuring 1.8 x 1.5 x 1.6 cm (image 56) | | also demonstrating blood flow. Portal venous and central hepatic artery flow was not | | able to be detected intrahepatically. Extrahepatic portal vein evaluation demonstrates | | pulsatility and possibly diminished flow. The common bile duct is normal in diameter was | | not obtained.. The gallbladder is contracted and contains multiple stones. The | | sonographic Chun sign was negative. The common bile duct measures 7 mm. The entire | | pancreas is obscured by bowel gas. There is a moderate to large amount of ascites. There | | is no hydronephrosis of the right kidney. IMPRESSION: 1. Cirrhotic liver morphology | | with moderate to large amount of ascites.2. Hypoechoic vascular masses within the liver | | are concerning for HCC versus metastatic disease. Further evaluation with nonemergent | | MRI of the liver is recommended.3. Pulsatile and/or diminished flow of the portal | | vein4. Cholelithiasis.5. The entire pancreas is obscured by bowel gas and not well | | evaluated. | | | |The gallbladder is contracted and contains multiple stones. The sonographic Chun sign was negative. | | | |The common bile duct measures 7 mm. | | | |The entire pancreas is obscured by bowel gas. | | | |There is a moderate to large amount of ascites. | | | |There is no hydronephrosis of the right kidney. | | | |IMPRESSION: | |1. Cirrhotic liver morphology with moderate to large amount of ascites. | |2. Hypoechoic vascular masses within the liver are concerning for HCC versus metastatic di sease. Further evaluation with nonemergent MRI of the liver is recommended. | |3. Pulsatile and/or diminished flow of the portal vein | |4. Cholelithiasis. | |5. The entire pancreas is obscured by bowel gas and not well evaluated. | | | | | + + Culture, Body Fluid, Sterile, Smear, with Anaerobes (04/09/2016 7:40 PM PST) + + | Specimen | + + | Body fluid sample | | (specimen) | + + + + + | Narrative | Performed At | + + + | Specimen Description ASCITES FLUID GRAM STAIN | EXTERNAL LAB | | NO CELLS OR ORGANISMS SEEN | | | CULTURE NO GROWTH 4 DAYS | | + + + + +---------+ + + | Performing | Address | City/State/Zipcode | Phone Number | | Organization | | | | + +---------+ + + | EXTERNAL LAB | | | | + +---------+ + + Cell Count, Body Fluid (04/09/2016 7:40 PM PST) + + | Specimen | + + | Body fluid sample | | (specimen) | + + + + + | Narrative | Performed At | + + + | FLUID TYPE ASCT | EXTERNAL LAB | | Testing performed at [facility] [address] COLOR | | | STRAW Testing performed | | | at [facility] [address] [address] APPEARANCE | | | HAZY Testing performed at [facility] | | | [address];[place], [place] [address] RBC'S | | | 48 Testing performed at [facility] | | | [address];[place] [address] TOTAL NUCLEATED CELLS 10 | | | Testing performed at [facility] [address];[place] [address] | | | NEUTROPHILS 30 | | | Testing performed at [facility] [address];[place] [address] LYMPHOCYTES | | | 9 Testing performed | | | at [facility] [address];[place] [address] MONOCYTES/MACROPHAGES | | | 52 Testing performed at [facility] | | | [address];[place] [address] Mesothelial Cells 9 | | | Testing performed at [facility] [address];[place], [place] | | | [address] CELLS COUNTED 100 | | | Testing performed at [facility];[address] [place] [address];[place] [address] | | + + + + +---------+ + + | Performing | Address | City/State/Zipcode | Phone Number | | Organization | | | | + +---------+ + + | EXTERNAL LAB | | | | + +---------+ + + Triglycerides, Body Fluid (04/09/2016 7:40 PM PST) + + | Specimen | + + | Body fluid sample | | (specimen) | + + + + + | Narrative | Performed At | + + + | FLUID TRIGLYCERIDE 93 This is | EXTERNAL LAB | | not a crane chaser validated sample type for this method. No reference | | | ranges have been established. Testing performed at [facility], [address] | | | [place] [address] | | + + + + +---------+ + + | Performing | Address | City/State/Zipcode | Phone Number | | Organization | | | | + +---------+ + + | EXTERNAL LAB | | | | + +---------+ + + External Lab: Protein, Total (04/09/2016 7:40 PM PST) + + | Specimen | + + | Body fluid sample | | (specimen) | + + + + + | Narrative | Performed At | + + + | FLUID TOTAL PROTEIN 0.7 This is | EXTERNAL LAB | | not a crane chaser validated sample type for this method. No reference | | | ranges have been established. Testing performed at [facility], [address] | | | [place] [address] FLUID TP SOURCE | | | ASCT Testing performed at [facility];[address] | | | [facility];[place] [address] | | + + + + +---------+ + + | Performing | Address | City/State/Zipcode | Phone Number | | Organization | | | | + +---------+ + + | EXTERNAL LAB | | | | + +---------+ + + Lactate Dehydrogenase, Body Fluid (04/09/2016 7:40 PM PST) + + | Specimen | + + | Body fluid sample | | (specimen) | + + + + + | Narrative | Performed At | + + + | FLUID LDH 48 This | EXTERNAL LAB | | is not a crane chaser validated sample type for this method. No | | | reference ranges have been established. Testing performed at [facility], | | | [address] [place] [address] | | + + + + +---------+ + + | Performing | Address | City/State/Zipcode | Phone Number | | Organization | | | | + +---------+ + + | EXTERNAL LAB | | | | + +---------+ + + Glucose, Body Fluid (04/09/2016 7:40 PM PST) + + | Specimen | + + | Body fluid sample | | (specimen) | + + + + + | Narrative | Performed At | + + + | FLUID GLUCOSE 109 This is | EXTERNAL LAB | | not a crane chaser validated sample type for this method. No | | | reference ranges have been established. Testing performed at [facility], | | | [address] [facility], [place] [address] Glucose, Fluid Type | | | ASCT Testing performed at [facility];[address] | | | [facility];[place] [address] | | + + + + +---------+ + + | Performing | Address | City/State/Zipcode | Phone Number | | Organization | | | | + +---------+ + + | EXTERNAL LAB | | | | + +---------+ + + PH, Body Fluid (04/09/2016 7:40 PM PST) + + | Specimen | + + | Body fluid sample | | (specimen) | + + + + + | Narrative | Performed At | + + + | FLUID PH 8.00 RAN | EXTERNAL LAB | | ON PH STRIP Testing performed at [facility];[address] [place] [address];[place] [address] | | + + + + +---------+ + + | Performing | Address | City/State/Zipcode | Phone Number | | Organization | | | | + +---------+ + + | EXTERNAL LAB | | | | + +---------+ + + Ethanol (04/09/2016 7:40 PM PST) + + + + + + | Component | Value | Ref Range | Performed | Pathologist | | | | | At | Signature | + + + + + + | Ethyl | 178 (H)Comment: Testing | mg/dL | EXTERNAL | | | Alcohol | performed at [facility];[address] | | LAB | | | | [address];[place], [place] | | | | | | [address] | | | | + + + + + + + + | Specimen | + + | Blood specimen | | (specimen) | + + + +---------+ + + | Performing | Address | City/State/Zipcode | Phone Number | | Organization | | | | + +---------+ + + | EXTERNAL LAB | | | | + +---------+ + + PTT (04/09/2016 7:14 PM PST) + + + + + + | Component | Value | Ref Range | Performed | Pathologist | | | | | At | Signature | + + + + + + | aPTT, | 32Comment: Testing | 23 - 32 seconds | EXTERNAL | | | Patient | performed at [facility];[address] | | LAB | | | | [address];[place] | | | | | | [address] | | | | + + + + + + + + | Specimen | + + | Blood specimen | | (specimen) | + + + +---------+ + + | Performing | Address | City/State/Zipcode | Phone Number | | Organization | | | | + +---------+ + + | EXTERNAL LAB | | | | + +---------+ + + Protime INR (04/09/2016 7:14 PM PST) + + + + + + | Component | Value | Ref Range | Performed | Pathologist | | | | | At | Signature | + + + + + + | INR | 1.3Comment: REFERENCE | | EXTERNAL | | | [...] | | | | | performed at [facility];[address] | | | | | | [facility];[place], [place] | | | | | | [address] | | | | + + + [...] + +---------+ + + External Lab: CBC (04/09/2016 7:14 PM PST) + + + + + + | Component | Value | Ref Range | Performed | Pathologist | | | | | At | Signature | + + + + + + | WBC | 5.85Comment: Testing | 3.80 - 11.00 | EXTERNAL | | | | performed at [facility];[address] | K/uL | LAB | | | | [address];[place] | | | | | | [address] | | | | + + + + + + | Non- | 2.79 (L)Comment: Testing | 3.70 - 5.10 | EXTERNAL | | | Red Blood | performed at [facility];[address] | M/uL | LAB | | | Cells | [address];[place] | | | | | Counted | [address] | | | | + + + + + + | Hemoglobin | 9.2 (L)Comment: Testing | 11.3 - 15.5 | EXTERNAL | | | | performed at [facility];[address] | g/dL | LAB | | | | [address];[place] | | | | | | [address] | | | | + + + + + + | Hematocrit, | 27.1 (L)Comment: Testing | 34.0 - 46.0 % | EXTERNAL | | | POC | performed at [facility];[address] | | LAB | | | | [address];[place] | | | | | | [address] | | | | + + + + + + | MCV | 97.1Comment: Testing | 80.0 - 100.0 fl | EXTERNAL | | | | performed at [facility];[address] | | LAB | | | | [address];[place] | | | | | | [address] | | | | + + + + + + | MCH | 32.9Comment: Testing | 27.0 - 34.0 pg | EXTERNAL | | | | performed at [facility];[address] | | LAB | | | | [address];[place] | | | | | | [address] | | | | + + + + + + | MCHC | 33.9Comment: Testing | 32.0 - 35.5 | EXTERNAL | | | | performed at [facility];[address] | g/dL | LAB | | | | [address];[place] | | | | | | [address] | | | | + + + + + + | RDW-CV | 47.3Comment: Testing | 37 - 53 fl | EXTERNAL | | | | performed at [facility];[address] | | LAB | | | | [address];[place] | | | | | | [address] | | | | + + + + + + | Platelet | 155Comment: Testing | 150 - 400 K/uL | EXTERNAL | | | Count | performed at [facility];[address] | | LAB | | | Plasma | [address];[place] | | | | | | [address] | | | | + + + + + + | MPV | 7.1Comment: Testing | fl | EXTERNAL | | | | performed at [facility];[address] | | LAB | | | | [address];[place] | | | | | | [address] | | | | + + + + + + | Differentia | AUTOMATEDComment: | | EXTERNAL | | | l Type | Testing performed at | | LAB | | | | [facility];[address] | | | | | | [address];[place] [address] | | | | + + + + + + | % Segmented | 54.16Comment: Testing | % | EXTERNAL | | | | performed at [facility];[address] | | LAB | | | Neutrophils | [address];[place] | | | | | | [address] | | | | + + + + + + | % | 12.84Comment: Testing | % | EXTERNAL | | | Lymphocytes | performed at [facility];[address] | | LAB | | | | [address];[place] | | | | | | [address] | | | | + + + + + + | % Monocytes | 16.65Comment: Testing | % | EXTERNAL | | | | performed at [facility];[address] | | LAB | | | | [address];[place] | | | | | | [address] | | | | + + + + + + | % | 15.14Comment: Testing | % | EXTERNAL | | | Eosinophils | performed at [facility];[address] | | LAB | | | | [address];[place] | | | | | | [address] | | | | + + + + + + | % Basophils | 1.21Comment: Testing | % | EXTERNAL | | | | performed at [facility];[address] | | LAB | | | | [address];[place] | | | | | | [address] | | | | + + + + + + | Absolute | 3.17Comment: Testing | 1.90 - 7.40 | EXTERNAL | | | Segmented | performed at [facility];[address] | K/uL | LAB | | | Neutrophils | [address];[place] | | | | | | [address] | | | | + + + + + + | Absolute | 0.75 (L)Comment: Testing | 1.00 - 3.90 | EXTERNAL | | | Lymphocytes | performed at [facility];[address] | K/uL | LAB | | | | [address];[place] | | | | | | [address] | | | | + + + + + + | Absolute | 0.97 (H)Comment: Testing | 0.00 - 0.80 | EXTERNAL | | | Monocytes | performed at [facility];[address] | K/uL | LAB | | | | [address];[place] | | | | | | [address] | | | | + + + + + + | Absolute | 0.89 (H)Comment: Testing | 0.00 - 0.50 | EXTERNAL | | | Eosinophils | performed at [facility];[address] | K/uL | LAB | | | | [address];[place] | | | | | | [address] | | | | + + + + + + | Absolute | 0.07Comment: Testing | 0.00 - 0.10 | EXTERNAL | | | Basophils | performed at [facility];[address] | K/uL | LAB | | | | [address];[place] | | | | | | [address] | | | | + + + + + + + + | Specimen | + + | Blood specimen | | (specimen) | + + + +---------+ + + | Performing | Address | City/State/Zipcode | Phone Number | | Organization | | | | + +---------+ + + | EXTERNAL LAB | | | | + +---------+ + + Phosphorus (04/09/2016 7:14 PM PST) + + + + + + | Component | Value | Ref Range | Performed | Pathologist | | | | | At | Signature | + + + + + + | PHOSPHORUS | 3.0Comment: Testing | 2.3 - 4.8 mg/dL | EXTERNAL | | | | performed at [facility];[address] | | LAB | | | | [address];[place] | | | | | | [address] | | | | + + + + + + + + | Specimen | + + | Blood specimen | | (specimen) | + + + +---------+ + + | Performing | Address | City/State/Zipcode | Phone Number | | Organization | | | | + +---------+ + + | EXTERNAL LAB | | | | + +---------+ + + Magnesium (04/09/2016 7:14 PM PST) + + + + + + | Component | Value | Ref Range | Performed | Pathologist | | | | | At | Signature | + + + + + + | Magnesium | 1.3 (L)Comment: Testing | 1.7 - 2.4 mg/dL | EXTERNAL | | | | performed at [facility];[address] | | LAB | | | | [address];[place], [place] | | | | | | [address] | | | | + + + + + + + + | Specimen | + + | Blood specimen | | (specimen) | + + + +---------+ + + | Performing | Address | City/State/Zipcode | Phone Number | | Organization | | | | + +---------+ + + | EXTERNAL LAB | | | | + +---------+ + + Lipase (04/09/2016 7:14 PM PST) + + + + + + | Component | Value | Ref Range | Performed | Pathologist | | | | | At | Signature | + + + + + + | Lipase | 145Comment: Testing | 73 - 393 U/L | EXTERNAL | | | | performed at [facility] | | LAB | | | | [address];[place] | | | | | | [address] | | | | + + + [...] + +---------+ + + Comprehensive Metabolic Panel (04/09/2016 7:14 PM PST) + + + + + + | Component | Value | Ref Range | Performed | Pathologist | | | | | At | Signature | + + + + + + | Na | 131 (L)Comment: Testing | 135 - 145 | EXTERNAL | | | | performed at [facility];[address] | mmol/L | LAB | | | | [address];[place] | | | | | | [address] | | | | + + + + + + | K | 3.6Comment: Testing | 3.5 - 4.9 | EXTERNAL | | | | performed at [facility];[address] | mmol/L | LAB | | | | [address];[place] | | | | | | [address] | | | | + + + + + + | Cl | 97 (L)Comment: Testing | 99 - 109 mmol/L | EXTERNAL | | | | performed at [facility];[address] | | LAB | | | | [address];[place] | | | | | | [address] | | | | + + + + + + | CO2 | 21 (L)Comment: Testing | 23 - 32 mmol/L | EXTERNAL | | | | performed at [facility];[address] | | LAB | | | | [address];[place] | | | | | | [address] | | | | + + + + + + | Anion Gap | 16Comment: Testing | 5 - 20 mmol/L | EXTERNAL | | | | performed at [facility];[address] | | LAB | | | | [address];[place] | | | | | | [address] | | | | + + + + + + | Glucose, | 98Comment: Testing | 65 - 99 mg/dL | EXTERNAL | | | Fasting | performed at [facility];[address] | | LAB | | | | [address];[place] | | | | | | [address] | | | | + + + + + + | BUN | 5 (L)Comment: Testing | 8 - 25 mg/dL | EXTERNAL | | | | performed at [facility];[address] | | LAB | | | | [address];[place] | | | | | | [address] | | | | + + + + + + | Creatinine | 0.41 (L)Comment: Testing | 0.50 - 1.00 | EXTERNAL | | | | performed at [facility];888 | mg/dL | LAB | | | | [address];[place] | | | | | | [address] | | | | + + + + + + | BUN/Creatin | 12Comment: Testing | | EXTERNAL | | | ine Ratio | performed at [facility];[address] | | LAB | | | | [address];[place] | | | | | | [address] | | | | + + + + + + | Calcium | 6.9 (L)Comment: Testing | 8.5 - 10.5 | EXTERNAL | | | | performed at [facility];888 | mg/dL | LAB | | | | [address];[place] | | | | | | [address] | | | | + + + + + + | Protein, | 5.8 (L)Comment: Testing | 6.3 - 8.2 g/dL | EXTERNAL | | | Total | performed at [facility];[address] | | LAB | | | | [address];[place] | | | | | | [address] | | | | + + + + + + | Albumin | 1.3 (L)Comment: Testing | 3.6 - 5.0 g/dL | EXTERNAL | | | | performed at [facility];[address] | | LAB | | | | [address];[place] | | | | | | [address] | | | | + + + + + + | Globulin | 4.5Comment: Testing | 1.3 - 4.9 g/dL | EXTERNAL | | | | performed at [facility];[address] | | LAB | | | | [address];[place] | | | | | | [address] | | | | + + + + + + | A/G Ratio | 0.3 (L)Comment: Testing | 1.0 - 2.4 | EXTERNAL | | | | performed at [facility];[address] | | LAB | | | | [address];[place] | | | | | | [address] | | | | + + + + + + | Bilirubin | 0.9Comment: Testing | 0.1 - 1.5 mg/dL | EXTERNAL | | | Total | performed at [facility];[address] | | LAB | | | | [address];[place] | | | | | | [address] | | | | + + + + + + | ALP, | 179 (H)Comment: Testing | 35 - 115 U/L | EXTERNAL | | | External | performed at [facility];[address] | | LAB | | | | [address];[place] | | | | | | [address] | | | | + + + + + + | AST | 37Comment: Testing | 10 - 45 U/L | EXTERNAL | | | | performed at [facility];[address] | | LAB | | | | [address];[place] | | | | | | [address] | | | | + + + + + + | ALT | 16Comment: Testing | 10 - 65 U/L | EXTERNAL | | | | performed at [facility];[address] | | LAB | | | | [address];[place] | | | | | | [address] | | | | + + + [...] | | | | | | at [facility];[address] | | | | [address];[place] [address] | | | | + + + + + + + + | Specimen | + + | Blood specimen | | (specimen) | + + + +---------+ + + | Performing | Address | City/State/Zipcode | Phone Number | | Organization | | | | + +---------+ + + | EXTERNAL LAB | | | | + +---------+ + + Ammonia (04/09/2016 7:13 PM PST) + + + + + + | Component | Value | Ref Range | Performed | Pathologist | | | | | At | Signature | + + + + + + | Ammonia | 92 (H)Comment: Testing | umol/L | EXTERNAL | | | | performed at [facility];[address] | | LAB | | | | [address];[place], [place] | | | | | | [address] | | | | + + + [...] + | Diagnosis | + + | Hepatic encephalopathy (HCC) Hepatic encephalopathy | + + | Alcohol abuse, continuous Nondependent alcohol abuse, continuous drinking behavior | + + | Anemia, unspecified | + + | Electrolyte and fluid disorders not elsewhere classified | + + | Malnutrition of moderate degree (HCC) Malnutrition of moderate degree | + + | Acute hepatic encephalopathy Hepatic encephalopathy | + + | Alcoholic cirrhosis of liver with ascites (HCC) Alcoholic cirrhosis of liver | + + | Ascites due to alcoholic cirrhosis (HCC) | + + | Alcohol dependence with uncomplicated intoxication (HCC) Acute alcoholic intoxication | | in alcoholism, unspecified | + + | Tachycardia Tachycardia, unspecified | + + | Dehydration | + + | Hypocalcemia | + + | Hypomagnesemia Disorders of magnesium metabolism | + + | Anasarca Edema | + + documented in this encounter
--- OUTSIDE RECORDS SUMMARY | ~2020-01-23 | XMS | Encounter Summary ---
Demographics + + + | Address | [address] | | | [place] [address] | + + + | Home Phone | | + + + | Preferred Language | Unknown | + + + | Marital Status | Single | + + + | Buddhism Affiliation | 1041 | + + + | Race | or | + + + | Ethnic Group | Not or | + + + Author + + + | Author | [facility] | | | and [place] | + + + | Organization | [facility] | | | and [place] | + + + | Address | Unknown | + + + | Phone | Unavailable | + + + Support + + + + + | Name | Relationship | Address | Phone | + + + + + | Joanne Pham | ECON | [address] | | | | | [place] | | | | | [address] | | + + + + + | Viktor Son | EDDIE | Unknown | | + + + + + | Edd Gill | ECON | Unknown | | + + + + + | Conner Barber | ECON | Unknown | | + + + + + Care Team Providers + +------+ + | Care Applications System Analyst Name | Role | Phone | [...] + | 11/24/ | Telephone | [facility] | Mitchell Stewart | Records Request | | 2020 | | GASTROENTEROLOGY | MD Conor [address] | (Ultrasound) | | | | [address] | [address]VD [place], [place] | | | | | [place], [place] | [address] | | | | | [address] | | | | | | [phone] | | | +--------+ + + + [...] Miscellaneous Notes Telephone Encounter - Ashlyn Raines, [employer] Burnisher - 11/25/2019 3:08 PM PDTReceigarth d call from Johnna at [facility] and she was requesting for the ultrasound order from September to be faxed as they are reviewing Dr. Stewart's note from 09/09/19 and they noticed he wa s wanting a ultrasound done. Informed her the only order for the ultrasound I see was entered on 09/17/19 and shows final result. She then asked if we can fax it to them at [phone]. * faxed over todayElectronically signed by Ashlyn Raines, [employer] Burnisher at 0 3:11 PM PDTdocumented in this encounter Plan of Treatment Not on filedocumented as of this encounter Visit Diagnoses Not on filedocumented in this encounter"
--- OUTSIDE RECORDS SUMMARY | ~2020-01-23 | XMS | Encounter Summary ---
Demographics + + + | Address | [address] | | | [place] [address] | + + + | Home Phone [...] + | Joanne Pham | ECON | [address] | | | | | [place] | | | | | [address] | | + + + + + | Viktor Son | EDDIE | Unknown | | + + + + + | Edd Gill | ECON | Unknown | | + + + + + | Conner Barber | ECON | Unknown | | + + + + + Care Team Providers + +------+ + | Care Postpartum Nurse Name | Role | Phone | + [...] + + | 03/17/ | Emergency | [facility] | Nathaly, | Urinary tract | | 2015 | | [facility] | Wang Orourke MD [address] | infection without | | | | CENTER [address] | [address] [place] | hematuria, site | | | | [place], [place] | [place] [address] | unspecified (Primary | | | | [address] | [phone] | Dx); Anemia, | | | | [phone] | | unspecified anemia | | | [...] note might be different from the original. [facility] Shaila Son Emergency Department Encounter Note [address] [place] [address] PCP:Doctor Unknown [phone] CHIEF COMPLAINT: Chief Complaint Patient presents with Abdominal Pain Knee Pain R ED Room: ED12/ED12 HPI Shaila Son is a 44 y.o. female who presents to the Emergency Department by ambulance for evaluation. This patient fell one week ago and hit her right knee. She was seen at [facility] and had an evaluation but they report [...] (A) Clear PH UA 5.5 5.0-8.0 Specific Mobile <=1.005 1.001-1.030 PROTEIN UA Negative Negative BLOOD [...] of the right knee. There is normal blasting contract miner alization. No visible fracture or dislocation. There [...] conveyed to the ordering provider, by the inspector government property, immediately following the exam. Dictated and Signed [...] were reviewed along with EMS notes and senior care record s if applicable. (See chart for [...] really does not take anything other than ntfy-ozp-[id number] medications at this time. I advised her [...] K72.90 572.2 Follow-up Information Follow up with [facility] In 1 week. New Prescriptions TRAMADOL (ULTRAM) [...] Performing | Address | City/State/[facility] | Phone Number | | [...] + | [facility] | [address] | [place] | [phone] | | [facility] | | [address] | | | - LABORATORY | | [...] [address] | [place] | [phone] | | [facility] | | [address] | | | - LABORATORY | | [...] [address] | [place] | [phone] | | [facility] | | [address] | | | - LABORATORY | | [...] + | [facility] | [address] | [place] | [phone] | | [facility] | | [address] | | | - LABORATORY | | [...] [address] | [place] | [phone] | | [facility] | | [address] | | | - LABORATORY | | [...] [address] | [place] | [phone] | | [facility] | | [address] | | | - LABORATORY | | [...] mL/min/1.73m2 | [facility] | | | [place] | RATE,ESTIMATED | | MEDICAL | | | | mL/min/1.43p4Dibf than | | CENTER - | | [...] [address] | [place] | [phone] | | [facility] | | [address] | | | - LABORATORY | | [...] [address] | [place] | [phone] | | [facility] | | [address] | | | - LABORATORY | | [...] ordering | | | provider, by the inspector government property, immediately following the exam. | | | [...] to the ordering provider, by the | |inspector government property, immediately following the exam. | | | [...] ST. | [address] | [place] | [phone] | | [facility] | | [address] | | | - LABORATORY | | [...] - 1.030 | [facility] | | | [place], | | | [facility] | | [...] + | [facility] | [address] | [place], [place] | [phone] | | [facility] | | [address] | | | - LABORATORY | | [...]
--- OUTSIDE RECORDS SUMMARY | ~2020-01-23 | XMS | Encounter Summary ---
Demographics + + + | Address | [address] | | | [place] [address] | + + + | Home Phone | | + + + | Preferred Language | Unknown | + + + | Marital Status | Single | + + + | Jain Affiliation | 1041 | + + + | Race | or | + + + | Ethnic Group | Not or | + + + Author + + + | Author | [facility] | | | and [place] | + + + | Organization | [facility] | | | and [place] | + + + | Address | Unknown | + + + | Phone | Unavailable | + + + Support + + + + + | Name | Relationship | Address | Phone | + + + + + | Joanne Pham | ECON | [address] | | | | | [place] | | | | | [address] | | + + + + + | Viktor Son | EDDIE | Unknown | | + + + + + | Edd Gill | ECON | Unknown | | + + + + + | Conner Barber | ECON | Unknown | | + + + + + Care Team Providers + +------+ + | Care Human Resources Coordinator Name | Role | Phone | + +------+ + PCP | Unavailable | + +------+ + Encounter Details +--------+ + + + + | Date | Type | Department | Care Team | Description | +--------+ + + + + | 07/27/ | Hospital | [facility] | Lasha Márquez | GI bleed; Seizure | | 2011 - | Encounter | [facility] | MD Clari [address] | ([facility]); Alcohol | | | | CLINICAL DECISION | IRMA JEAN | withdrawal ([facility]); | | 07/30/ | | [address] | [address] | Blood loss anemia; | | 2011 | | [place], [place] | [place] [address] | Fever; | | | | [address] | [phone] | Thrombocytopenia | | | | [phone] | | ([facility]); Elevated | | | | | | [...] Summaries by Dalia Oakes MD at 07/31/11 9823 Author: Dalia Oakes MD Service: Hospitalist Author Type: Physician Filed: 07/31/111118 Date of Service: 07/31/111105 Status: Signed Blower And Compressor Assembler: Dalia Oakes MD (Physician) Related Notes: Original Note by Dalia Oakes MD (Physician) filed at 07/31/11 111 Service: Hospitalist Physician Discharge Summary Patient ID: Shaila Son [id number] 41 y.o. 1970 Admit date: 07/28/2011 Discharge [...] of alcoholism who initiall y presented to [facility] with Hx of seizure, according to patient she was in usual state of healt until earlier that day when she was witnessed by her aunt that she might had seizure with decreasing level of conciusness, her aunt called EMS who brought her to [facility] where she was evaluated and suspected to have possible alcohol withdrawal seizur e, in that hospital she had vomiting with blood. The physician contacted Dr. Griffith gastroent erologist to transfer patient to [facility] for possible need of endoscopy on urgent [...] with her primary care physician at [facility]. She does not remember the name of [...] Progress Notes by Aimee Molina at 07/31/11 9536 Author: Aimee Molina Service: (none) Author Type: Tower Dragline Operator Filed: 07/31/11 8505 Date of Service: 07/31/11 9117 Status: Signed Blower And Compressor Assembler: Aimee Molina (Tower Dragline Operator) KAMILAH checked with [facility] for transportation issues, pt is [employer] Standard and therefore do es not qualify for [place] transportation... Pt states that she has others she can try to linda l for a ride, pt has a phone voucher with 75 minutes on it... Pt also has a brother that morgan es in [place] however pt states she does not want to call him... JAIME Lin stated that pts s ister had called earlier and stated that [facility] paid for her way home with a [...] 1336 Date of Service: 07/31/111328 Status: Signed Blower And Compressor Assembler: Riley Charles RN (Registered Nurse) Patient states [...] 07/31/11830 Date of Service: 07/31/11830 Status: Signed Blower And Compressor Assembler: Carlos Nevarez RPH (Pharmacist) Vancomycin day 3, [...] 0.7 0.6-1.2 (mg/dL) Final Testing performed at [facility];[address] [facility];[place] [address] CREATININE: 0.7 (07/28/11 2312) Estimated creatinine clearance [...] Date of Service: 07/30/11 1231 Status: Signed Blower And Compressor Assembler: Dalia Oakes MD (Physician) Service: Hospitalist Progress Note Shaila Son 41 y.o. [id number] 309/309-2 female BRANDI LEONARDO MD, MD Hospital [...] 1142 octreotide (SANDOSTATIN) infusion 25 mcg/hr (07/29/11 6146) pantoprozole (PROTONIX) infusion 8 mg/hr (07/30/11 4804) PRN Medications acetaminophen, acetaminophen, lorazepam, lorazepam, ondansetron, [...] 124* 65-99 (mg/dL) Final Testing performed at [facility];[address] [facility] [address];[place] [address] CBC: Lab Results Component Value Date WBC [...] Date of Service: 07/30/11 1002 Status: Signed Blower And Compressor Assembler: Mitchell Griffith IV, MD (Physician) Service: Gastroenterology Progress Note Hospital Day: LOS: [...] 1901 octreotide (SANDOSTATIN) infusion 25 mcg/hr (07/29/11 7218) pantoprozole (PROTONIX) infusion 8 mg/hr (07/30/11 4812) PRN Medications acetaminophen, acetaminophen, lorazepam, lorazepam, ondansetron, [...] history of varices per ED physician from [facility] and mild hematemesis this am per patient. [...] Service: Hospitalist Author Type: Physician Filed: 07/29/11 9420 Date of Service: 07/29/11 0599 Status: Signed Blower And Compressor Assembler: Dalia Oakes MD (Physician) Service: Hospitalist Progress Note Shaila Son 41 y.o. [id number] 309/309-2 female BRANDI LEONARDO MD, MD Hospital [...] 145* 65-99 (mg/dL) Final Testing performed at [facility];[address] [place] [address] CBC: Lab Results Component Value Date WBC [...] Date of Service: 07/29/11 1151 Status: Signed Blower And Compressor Assembler: Mitchell Griffith IV, MD (Physician) Service: Gastroenterology Progress Note Hospital Day: LOS: [...] history of varices per ED physician from [facility] and mild hematemesis this am per patient. [...] 07/29/11412 Date of Service: 07/29/11412 Status: Signed Blower And Compressor Assembler: Devin Lynn RPH (Pharmacist) Clinical Pharmacy Note: Pharmacy Dosing Vancomycin; Day 1 Shaila Huy 41 y.o. female Ht Readings from Last 1 Encounters: 07/29/11 1.702 m (5' 7") Wt Readings from Last 1 Encounters: 07/29/11 61.2 kg (134 lb 14.7 oz) CREATININE Date Value Range Status 07/28/2011 0.7 0.6-1.2 (mg/dL) Final Testing performed at [facility];[address] [place] [address];[place] [address] CREATININE: 0.7 (07/28/11 2312) Estimated creatinine clearance [...] 1409 Date of Service: 07/30/111406 Status: Signed Blower And Compressor Assembler: Mitchell Griffith IV, MD (Physician) Service: Gastroenterology Service Pre-procedure History & Physical Update Patient Name: hSaila Son Date of Admission: 07/30/2011 On reexamination [...] 0128 Date of Service: 07/29/11106 Status: Signed Blower And Compressor Assembler: Lasha Márquez MD (Physician) Service: Hospitalist Admission History & Physical Date [...] of alcoholism who initiall y presents to [facility] with Hx of seizure, according to patient she was in usual s peoples of healt until earlier today when she was witnessed by her aunt that she might have sei zure with decreasing level of conciusness, her [facility] and suspected to have possible alcohol withdrawal seizure, wh ere t=in that hospital she has vomiting with blood in vomitus. The physician contacted dr anderson her gastroeneterologist in [facility] who has suggested to transfer patient to [facility] for p ossible need of endoscopy on [...] Date/Time Type and crossmatch x 2 units [[id number]] Collection: 07/28/112311 Resulted: 07/29/1117 Specimen Type: Blood ARM BAND NUMBER [id number] ARM BAND NUMBER Result: Testing performed at [facility];[address] [facility] [address];[place] [address] ABO/RH(D) O POSITIVE ABO/RH(D) Result: Testing performed at [facility];[address] [place] [address] ANTIBODY SCREEN NEGATIVE ANTIBODY SCREEN Result: Testing performed at [facility];[address] [place] [address] UNIT NUMBER [id number] BLOOD COMPONENT TYPE Result: LEUKODEPLETED PC UNIT DIVISION 00 STATUS OF UNIT ALLOCATED TRANSFUSION STATUS Result: OK TO TRANSFUSE CROSSMATCH RESULT COMPATIBLE UNIT NUMBER [id number] BLOOD COMPONENT TYPE Result: LEUKODEPLETED PC UNIT DIVISION 00 STATUS OF UNIT ALLOCATED TRANSFUSION STATUS Result: OK TO TRANSFUSE CROSSMATCH RESULT COMPATIBLE Alcohol, Ethyl [[id number]] Collection: 07/28/112311 Resulted: 07/29/11 0014 ALCOHOL,ETHYL <3 mg/dL CBC with differential [[id number]] Abnormal Collection: 07/28/112311 Resulted: 07/28/112351 Specimen Type: [...] Result: NORMAL RBC MORPH Comprehensive metabolic panel [[id number]] Abnormal Collection: 07/28/112311 Resulted: 07/28/112338 Specimen Type: [...] ALT 22 U/L EGFR >60 mL/min/1.73m2 Amylase [[id number]] Abnormal Collection: 07/28/112311 Resulted: 07/28/112338 Specimen Type: Blood Specimen Source: Arm, Right AMYLASE 321 U/L H Lipase [[id number]] Collection: 07/28/112311 Resulted: 07/28/112338 Specimen Type: Blood Specimen Source: Arm, Right LIPASE 90 U/L aPTT [[id number]] Collection: 07/28/112311 Resulted: 07/28/112332 Specimen Type: Blood Specimen Source: Arm, Right APTT 32 seconds Protime [[id number]] Collection: 07/28/112311 Resulted: 07/28/112331 Specimen Type: Blood [...] Date of Service: 04/21/12 0051 Status: Signed Blower And Compressor Assembler: Mitchell Griffith IV, MD (Physician) Service: Gastroenterology Initial Consult Note Date of Admission: 07/28/2011 Reason for Consultation: Alcoholic, vomited blood, history remotely of varices Requesting Physician: Dr. Greenfield, Emergency Department History Obtained From: patient CHIEF COMPLAINT: Seizure this morning, threw up blood this am HISTORY OF PRESENT ILLNESS The patient is a 41 y.o. female with significant past medical history of chronic alcoholism who presented to [facility] with seizure this am after missing alcohol - "ran out" - deve maryd limited episode of hematemesis this evening and do to remote history of varices transf erred here for further management. Denies melena, reflux, weight loss. Has "an ulcer" based on chronic epigastric pain. DT about 5 years ago when went to residential. No dysphagia. Fever note d on ED [...] file. 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 No [...] history of varices per ED physician from [facility] facility and mild hematemesis this am [...] 07/29/1133 Date of Service: 07/29/1132 Status: Signed Blower And Compressor Assembler: Liberty Gonzáles RN (Registered Nurse) hospitalist at bedside Liberty Gonzáles RN 07/29/1133 onver miriam Transaction, Provider Unknown - 07/28/2011 11:42 PM PDT ED Notes by Clarissa Eckert at 07/28/112341 Author: Clarissa Eckert Service: (none) Author Type: (none) Filed: 07/28/112343 Date of Service: 07/28/112341 Status: Signed Blower And Compressor Assembler: Clarissa Eckert (Digital Proofing And Platemaker) Dr Arnold's answering service called, Dr Jackson is substation manager and responded. onver miriam Transaction, Provider Unknown - 07/28/2011 11:27 PM PDT ED Notes by Madelyn Rodgers RN at 07/28/112326 Author: Madelyn Rodgers RN Service: (none) Author Type: Registered Nurse Filed: 07/28/112327 Date of Service: 07/28/112326 Status: Signed Blower And Compressor Assembler: Madelyn Rodgers RN (Registered Nurse) Critical result [...] 07/30/111943 Date of Service: 07/28/112247 Status: Signed Blower And Compressor Assembler: Geovanny Greenfield DO (Physician) Department of Emergency Medicine 07/28/2011 History of Present Illness Patient Identification Shaila Son is a 41 y.o. female. Patient information was obtained from patient. History/Exam limitations: none. Patient presented to the Emergency Department by: Ambulance BRANDI LEONARDO MD, MD Chief Complaint Chief Complaint Patient presents with GI Bleeding Transfer from [facility] 22:48. Pt presents to the ED after seizure that occurred today. Seizure occurred at home an d pt went to [facility] for evaluation. She does have history of seizures. Onset of sympt oms was abrupt. Pt had an episode of coffee ground emesis while she was admitted at [facility] and was transferred here for further [...] at home an d pt went to [facility] for evaluation. She does have history of seizures. Pt had an epis ode of coffee ground emesis there and was transferred here. H&H were also low as described i n HPI. On initial vital signs pt is tachycardic, febrile, and hypertensive. 22:51. Reviewed chart from [facility]. HGB of 9.3 and HCT of 27.6. Platelet count of 40. Pt was started on Octreotide bolus and was given 80 mg of Protonix at [facility]. Pt did have a seizure there in the ER and was given 1 mg of Ativan. 23:12. Will order EKG, INR, PTT, amylase, lipase, CBC, CMP, UDS, and etoh level. Will also order IV fluids. 23:35. Will place call to substation manager GI. 23:40. Reviewed lab results. Hypocalcemia. Amylase [...] notes. No prior ED visits. Chart from [facility] Laboratory Evaluation Results Procedure Component Value Ref Range Flag Date/Time Urine Microscopic [[id number]] Abnormal Collection: 04/21/12 0031 Order Status: Completed Resulted: 07/29/117 Specimen Type: Urine WBC 6-10 0 - 5 /hpf RBC 26-50 0 - 2 /hpf EPITHELIAL 26-50 /lpf BACTERIA 4+ NONE SEEN A Urine Drug Screen [[id number]] Abnormal Collection: 07/29/1130 Order Status: Completed Resulted: 07/29/11131 Specimen Type: Urine AMPHETAMINE NEGATIVE NEGATIVE OPIATES NEGATIVE NEGATIVE BARBITUATES NEGATIVE NEGATIVE PCP NEGATIVE NEGATIVE BENZODIAZEPINE POSITIVE NEGATIVE A THC POSITIVE NEGATIVE A COCAINE NEGATIVE NEGATIVE TRICYCLIC ANTIDEPRESS NEGATIVE NEGATIVE ACETAMINOPHEN/PARACET NEGATIVE NEGATIVE METHAMPHETAMINES NEGATIVE NEGATIVE METHADONE NEGATIVE NEGATIVE Alcohol, Ethyl [[id number]] Collection: 07/28/112311 Order Status: Completed Resulted: 07/29/11 0014 ALCOHOL,ETHYL <3 <10 mg/dL CBC with differential [[id number]] Abnormal Collection: 07/28/112311 Order Status: Completed Resulted: [...] Result: NORMAL RBC MORPH Comprehensive metabolic panel [[id number]] Abnormal Collection: 07/28/112311 Order Status: Completed Resulted: [...] 50 U/L EGFR >60 >60 mL/min/1.73m2 Amylase [[id number]] Abnormal Collection: 07/28/112311 Order Status: Completed Resulted: 07/28/112338 Specimen Type: Blood Specimen Source: Arm, Right AMYLASE 321 25 - 115 U/L H Lipase [[id number]] Collection: 07/28/112311 Order Status: Completed Resulted: 07/28/112338 Specimen Type: Blood Specimen Source: Arm, Right LIPASE 90 73 - 393 U/L aPTT [[id number]] Collection: 07/28/112311 Order Status: Completed Resulted: 07/28/112332 Specimen Type: Blood Specimen Source: Arm, Right APTT 32 25 - 37 seconds Protime [[id number]] Collection: 07/28/112311 Order Status: Completed Resulted: 07/28/112331 Specimen Type: Blood Specimen Source: Arm, Right INR 1.4 0.9 - 3.5 Radiology and EKG Evaluation Imaging Results XR Chest PA and Lateral (Preliminary result) Result time:07/29/11129 ED Interpretation Documented by Geovanny Greenfield DO (07/29/11129, Emergency Department, Emergency Medicine) This ED initial [...] time: 23:07 Rate: 109 Rhythm: Sinus tachycardia [place]: LAD VALENTIN: normal QRS: normal ST waves: [...] 07/28/112155 Date of Service: 07/28/112154 Status: Signed Blower And Compressor Assembler: Madelyn Rodgers RN (Registered Nurse) 41 yo female, c/o seizures. Hx of etoh. 1 episode of seizing. Vomited approx 500ml blood. Madelyn Rodgers RN 07/28/112155 docume nted in this encounter Miscellaneous Notes Op Note - Mitchell Griffith MD - 07/30/2011 2:43 PM PDT Op Note by Mitchell Griffith IV, MD at 07/30/11 1449 Author: Mitchell Griffith IV, MD Service: (none) Author Type: Physician Filed: 07/30/11 4698 Date of Service: 07/30/111442 Status: Signed Blower And Compressor Assembler: Mitchell Griffith IV, MD (Physician) Related Notes: Original Note by Mitchell Griffith IV, MD (Physician) filed at 07/30/11 1 454 Service: Gastroenterology ENDOSCOPY SUITE PROCEDURE NOTE Esophagogastroduodenoscopy [...] FOREARM | | | Testing performed at [facility];[address] [facility] | | | [facility];[place] [address] CULTURE | | | NO GROWTH IN 5 DAYS. | | | Testing performed at [facility] [address];[place] [address] | | | REPORT STATUS 08/03/2011 FINAL [...] AC | | | Testing performed at [facility];[address] [facility] | | | [address];[place] [address] CULTURE | | | NO GROWTH IN 5 DAYS. | | | Testing performed at [facility];[address] [facility] [facility];[place] [address] | | | REPORT STATUS 08/03/2011 FINAL [...]
--- OUTSIDE RECORDS SUMMARY | ~2020-01-23 | XMS | Encounter Summary ---
Demographics + + + | Address | [address] | | | [place] [address] | + + + | Home Phone | | + + + | Preferred Language | Unknown | + + + | Marital Status | Single | + + + | Worship Affiliation | [id number] | + + + | Race | or | + + + | Ethnic Group | Not or | + + + Author + + + | Author | [facility] | | | and [place] | + + + | Organization | [facility] | | | and [place] | + + + | Address | Unknown | + + + | Phone | Unavailable | + + + Support + + + + + | Name | Relationship | Address | Phone | + + + + + | Joanne Pham | ECON | [address] | | | | | [place] | | | | | [id number] | | + + + + + | Viktor Son | EDDIE | Unknown | | + + + + + | Edd Gill | ECON | Unknown | | + + + + + | Conner Barber | ECON | Unknown | | + + + + + Care Team Providers + +------+ + | Care Ed Physicians Name | Role | Phone | + [...] | | | | | | | Hypokalemia | | | | | | | Delirium | | | | | | | tremens | | | | | | | ([facility]) | | | | | | | Hypertensive | | | | | | | urgency | | | | | | | Recurrent | | | | | | | seizures | | | | | | | ([facility]) | | | | | | | Altered | | | | | | | sensorium | | | | | | | | | | +--------+--------+ + + + + Encounter Details +--------+ + + + + | Date | Type | Department | Care Team | Description | +--------+ + + + + | 10/31/ | Hospital | [facility] | Danish George, | Hypertensive urgency | | 2017 - | Encounter | [facility] | [address] | (Primary Dx); | | | | [address] | [place] | Altered sensorium; | | 11/07/ | | [place] [address] | [id number] | Hypokalemia; | | 2017 | | [phone] | | Recurrent seizures | | | | | Michael, Morro Singletary, | (HCC); Delirium | | | | | MD [address] | tremens (HCC); | | | | | [facility] [place] | Alcohol withdrawal | | | | | [place] [address] | seizure, with | | | | | [phone] | unspecified | | | | | | complication (HCC); | | | | | Francisco Choi P, | Alcohol withdrawal | | | | | DO [address] | syndrome with | | | | | [place] [id number] [place], | complication, with | | | | | [place] [address] | unspecified | | | | | [phone] | complication (HCC); | | | | | | Acute hyponatremia; | | | | | | Alcoholic cirrhosis | | | | | | of liver with | | | | | | ascites (HCC); | | | | | | Ascites due to | | | | | | alcoholic cirrhosis | | | | | | (HCC); Acute | | | | | | hypokalemia; | | | | | | Bilateral lower | | | | | | extremity edema; | | | | | | Hepatic [...] + + + | Blood Pressure | 135/65 | 11/07/2016 7:22 AM | | | | | PDT | | + + + + + | Pulse | 102 | 11/07/2016 2:34 PM | | | | | PDT | | + + + + + | Temperature | 36.8 C (98.2 F) | 11/07/2016 7:22 AM | | | | | PDT | | + + + + + | Respiratory Rate | 18 | 11/07/2016 2:34 PM | | | | | PDT | | + + + + + | Oxygen Saturation | 94% | 11/07/2016 2:34 PM | | | | | PDT | | + + + + + | Inhaled Oxygen | - | - | | | Concentration | | | | + + + + + | Weight | 64.3 kg (141 lb 12.1 | 11/07/2016 5:00 AM | | | | oz) | PDT | | + + + + + | Height | 170.2 cm (5' 7") | 11/01/2016 9:00 AM | | | | | PDT | | + + + + + | Body Mass Index | 22.2 | 11/01/2016 9:00 AM | | | | | PDT [...] documented as of this encounter Discharge Summaries Kristina Tesfaye MD - 11/07/2016 12:27 PM PDT Physician Discharge Summary Patient ID: Shaila Son [id number] 46 y.o. 1970 Admit date: 10/31/2016 Discharge date and time: 11/07/2016 Admitting Physician: Francisco Choi, Discharge Physician: Kristina Tesfaye MD Admission Diagnoses: Hypokalemia [E87.6] Delirium tremens (HCC) [F10.231] Hypertensive urgency [I16.0] Recurrent seizures (HCC) [G40.909] Altered sensorium [R40.4] Discharge Diagnoses: Altered mental status and seizure likely 2/2 alcohol withdrawal, hyper tensive urgency, severe hypokalemia and hypomagnesemia, severe protein-calorie malnutrition. Discharged Condition: fair Indication for Admission: per H&P by Dr. Choi: 46 y.o. female with a history of alcoholi sm and alcoholic cirrhosis with ascites who still drinks daily and presented to ER with abov e chief complaints. Patient was evaluated earlier this morning at [facility] em ergency room where she presented with increased swelling in her legs and abdomen with associ ated shortness of breath, difficulty walking secondary to swelling and difficulty sleeping d ue to having leg cramps at night. Patient had been off her diuretics or any other medicatio ns for at least couple months. Lab work then showed potassium 3.3, sodium 129, AST 44, ALT 9, ammonia 60, magnesium 1.2 and alcohol level of 232.5. In ER she was treated with IV Lasix and was discharged home with prescriptions for oral furosemide, spironolactone and lactulos e. Patient continues to drink daily, but her last drink was yesterday and none today. After returning home from emergency room patient had a generalized seizure and then she had another one later that afternoon. Patient was brought to ER today and had a witnessed epis ode of generalized seizure in the emergency room as well after which patient was postictal w hen seen by ER attending. Patient's lab work here showed sodium 131 and potassium of 2.9, m agnesium 1.3 and lactic acid of 2.8. Alcohol level was 100. Patient was treated with IV Ativan for tremulousness and seizure-like activity. I was asked to admit patient to hospitalist service for further inpatient evaluation and monica salas. Of note patient was poor historian, hence all history is obtained from patient's sister and ER records. Hospital Course: Patient was admitted for monitoring and management of her alcohol withdraw al. She was placed on CIWA as well as keppra for control of her seizures. Her electrolytes were aggressively replaced, and she was put on diuretics for her decompensated liver diseas e. Paracentesis was performed, which ruled out SBP, and about 5 liters were pulled off. He r LE swelling has resolved. Her mental status was very good prior to discharge, and she was not scoring on CIWA. Case management was involved with the intent of finding a safe discha rge plan for the patient. However, she was adamant that she wanted to go back to living wit h her aunt and declined any further help. She feels that she will be able to stay away from alcohol as "no one else in the house drinks." She understands that further alcohol use nicole l put her at risk of . She also was instructed to follow up with her PCP, as she had a pparently not been taking her medications over the last couple months. Prescriptions were p rovided, and I stressed the importance of continuing these. She voiced understanding. Since patient's seizures were related to alcohol withdrawal, continued long-term keppra reinaldo atment is not required. Consults: none Discharge Exam: General: Alert, pleasant, NAD Cardiovascular: Tachycardic but regular, no m/r/g Respiratory: CTA bilaterally, wheezing resolved Abdomen: Softly distended, no tenderness/rebound/guarding, bowel sounds present Extremities: WWP, no LE edema Neurological: Alert and oriented x 3, calm, appropriate Disposition: home Patient Instructions: Discharge Medications New Medications Details adult multivitamin with minerals/iron Tabs Take 1 tablet by mouth Daily. folic acid 1 mg tablet Take 1 tablet by mouth Daily. lactulose 10 g/15 mL solution Take 15 mLs by mouth Daily. thiamine 100 mg tablet Take 1 tablet by mouth Daily. aka: VITAMIN B-1 Changed Medications Details furosemide 20 mg tablet Take 1 tablet by mouth 2 times daily. What changed: medication strength how much to take when to take this aka: LASIX Unchanged Medications Details famotidine 40 MG tablet Take 40 mg by mouth Daily. aka: PEPCID magnesium oxide 400 mg tablet Take 400 mg by mouth 2 times daily. aka: MAG-OX polyethylene glycol packet Take 17 g by mouth Daily as needed (constipation). aka: MIRALAX potassium chloride 10 mEq CR capsule Take 10 mEq by mouth Daily. aka: MICRO-K spironolactone 25 mg tablet Take 50 mg by mouth 2 times daily. aka: ALDACTONE Activity: activity as tolerated Diet: Limit fluids to 1L daily Wound Care: none needed Follow-up with PCP LASHAY. Signed: Kristina Tesfaye MD 11/07/2016 12:28 documented in this enc ounter Discharge Instructions Instructions Kristina Tesfaye MD - 11/07/2016Please continue your home medications as previo usly prescribed. Please also take the daily vitamin supplements. Please, please, please refrain from alcohol. This puts you at risk for further liver damag e, seizures, and . Please continue to follow up with your outpatient alcohol program f or continued support. Please follow up with your doctor lashay for continued monitoring and treatment of your liver disease. documented in this encounter Medications at Time of Discharge + + + +---------+ + + | Medication | Sig | Dispensed | Refills | Start | End Date | | | | | | Date | | + + + +---------+ + + | famotidine | Take 1 tablet by | 30 | 0 | 11/08/19 | | | (PEPCID) 40 MG | mouth Daily. | tablet | | 17 | 7 | | tablet | | | | | | + + + +---------+ + + | folic acid 1 mg | Take 1 tablet by | 30 | 0 | 11/08/19 | | | tablet | mouth Daily. | tablet | | 17 | 7 | + + + +---------+ + + | furosemide (LASIX) | Take 1 tablet by | 60 | 0 | 11/08/19 | | | 20 mg tablet | mouth 2 times daily. | tablet | | 17 | 7 | + + + +---------+ + + | lactulose 10 g/15 | Take 15 mLs by mouth | 236 mL | 0 | 11/08/19 | | | mL solution | Daily. | | | 17 | 7 | + + + +---------+ + + | magnesium oxide | Take 1 tablet by | 60 | 0 | 11/08/19 | | | (MAG-OX) 400 mg | mouth 2 times daily. | tablet | | 17 | 7 | | tablet | | [...] + + + +---------+ + + | polyethylene | Take 17 g by mouth | | 0 | | | | glycol (MIRALAX) | Daily as needed | | | | 7 | | packet | (constipation). | | | | | + + + +---------+ + + | potassium chloride | Take 1 capsule by | 30 | 0 | 11/08/19 | | | (MICRO-K) 10 mEq CR | mouth Daily. | capsule | | 17 | 7 | | capsule | | | | | | + + + +---------+ + + | spironolactone | Take 2 tablets by | 60 | 0 | 11/08/19 | | | (ALDACTONE) 25 mg | mouth 2 times daily. | tablet | | 17 | 7 | | tablet | | | | | | + + + +---------+ + + | thiamine (VITAMIN | Take 1 tablet by | 30 | 0 | 11/08/19 | | | B-1) 100 mg tablet | mouth Daily. | tablet | | 17 | 8 | + + + +---------+ + + documented as of this encounter Progress Notes Teresa Saha RN - 11/07/2016 2:52 PM PDTDischarge instructions reviewed with miguelina pimentel, 9 prescriptions faxed to [facility] and given to patient, PICC removed dressing pl megha and reminded patient what to look out for and when to remove the dressing, all questions answered. Electronically signed by: Teresa Constantino RN 11/07/2016 15:03 Ravinder Macias MD - 11/06/2016 10:54 AM PDTFormatting of this note might be different from the origin al. [facility] Hospitalist Progress Note Shaila Son is a 46 y.o. female SUBJECTIVE: Denies any acute pain. No shortness of breath. Eating about half her meals. No nausea/ vomiting, 2 BM's overnight. Wondering when she can go home. VITALS: Temp: 37.9 C (100.2 F), Pulse: 102, Resp: 18, BP: 139/81, SpO2 96 % on room air at flow rate 2L/min Temp Min: 36.8 C (98.2 F) Max: 38 C (100.4 F) Weight: 74.7 kg (164 lb 10.9 oz) Intake/Output Summary (Last 24 hours) at 11/06/16 1054 Last data filed at 11/06/16 0620 Gross per 24 hour Intake 420 ml Output 3100 ml Net -2680 ml PHYSICAL EXAM: General: Alert, much brighter than before Cardiovascular: Tachycardic at 100, no m/r/g Respiratory: CTA bilaterally, wheezing resolved Abdomen: Soft, slightly less distended, no tenderness/rebound/guarding, bowel sounds pres ent Extremities: WWP, trace edema Neurological: Alert and oriented x 3, anxious, but appropriate Jackson catheter present: No DIAGNOSTIC STUDIES: Available data and images were reviewed personally. Significant results and findings are a ddressed here or in the Assessment and Plan. Recent Results (from the past 24 hour(s)) Comprehensive Metabolic Panel Result Value Ref Range NA 129 (L) 136 - 149 mmol/L K 3.6 3.5 - 5.1 mmol/L CL 104 98 - 109 mmol/L CO2 21 (L) 24 - 31 mmol/L ANION GAP 4 3 - 16 mmol/L GLUCOSE 101 70 - 109 mg/dL BUN 4 (L) 7 - 18 mg/dL Creatinine, Serum/Plasma 0.70 0.60 - 1.30 mg/dL eGFR if not >60 >=60 mL/min/1.73m2 CALCIUM 7.7 (L) 8.3 - 10.5 mg/dL ALBUMIN 1.4 (L) 3.2 - 5.0 g/dL BILIRUBIN TOTAL 0.9 0.1 - 1.5 mg/dL Total protein 5.3 (L) 6.0 - 7.8 g/dL AST 29 10 - 42 U/L ALT 13 6 - 45 U/L ALK PHOS 108 40 - 110 U/L GLOBULIN 3.9 (H) 2.1 - 3.8 g/dL Albumin/Globulin ratio 0.4 (L) 0.8 - 2.0 BUN/CREA 5.7 CBC with Differential Result Value Ref Range WBC 5.9 4.0 - 11.0 K/uL RBC 2.86 (L) 3.70 - 5.20 M/uL Hgb 9.2 (L) 11.5 - 16.0 g/dL Hct 27.4 (L) 34.0 - 47.0 % MCV 95.7 83.0 - 101.0 fL MCH 32.1 28.0 - 35.0 pg MCHC 33.5 32.0 - 36.0 g/dL RDW-CV 15.1 (H) <15.0 % Platelet Count 142 140 - 440 K/uL MPV 7.9 fL % Neutrophils 57.2 45.0 - 82.0 % % Lymphocytes 12.9 (L) 20.0 - 45.0 % % Monocytes 21.2 (H) 4.0 - 12.0 % % Eosinophils 7.2 (H) 0.0 - 5.0 % % Basophils 1.5 (H) 0.0 - 1.0 % Absolute Neutrophils 3.40 1.80 - 8.50 K/uL Absolute Lymphocytes 0.80 0.60 - 3.20 K/uL Absolute Monocytes 1.30 (H) 0.00 - 1.00 K/uL Absolute Eosinophils 0.40 0.00 - 0.40 K/uL Absolute Basophils 0.10 0.00 - 0.10 K/uL Magnesium Result Value Ref Range MG 1.1 (L) 1.8 - 2.5 mg/dL Xr Chest Ap Portable Result Date: 11/06/2016 XR CHEST AP PORTABLE 11/06/2016 8:53 AM HISTORY: Wheezing, fever, evaluate for pneumonia. CO MPARISON: Multiple priors. Findings: There is a right PICC line with tip in the upper SVC. T he heart is enlarged. Aorta is normal. Mediastinum is unremarkable. There is prominence of t he pulmonary vasculature with cephalization. There is improved mild atelectasis in the right lung base. Improved mild atelectasis is in the left perihilar region. Moderate elevation of the right hemidiaphragm is seen. There is lumbar fusion hardware. IMPRESSION - Right PICC l ine with tip in in the upper SVC. Improved mild atelectasis in right lung base left perihila r region. Prominence of central pulmonary vasculature with cephalization that can be seen wi th fluid overload. Cardiomegaly. Dictated and Signed by: Austin Crane MD Electronically sig sariah: 11/06/2016 9:02 AM ASSESSMENT and PLAN: Active Hospital Problems Diagnosis Alcohol withdrawal seizure *Alcohol withdrawal syndrome with complication Acute hyponatremia Acute hypokalemia Bilateral lower extremity edema Alcoholic cirrhosis of liver with ascites Ascites due to alcoholic cirrhosis Resolved Hospital Problems Diagnosis Date Noted Date Resolved No resolved problems to display. Alcoholism/alcohol withdrawal: - Debilitating, her main medical problem - Not requiring lorazepam any more - States she has been through rehab programs in the past, wants to quit - Folate/thiamine/MVI daily - Discuss with case management Hypomagnesemia/hypokalemia: - Mg severely low at 1.1 despite 4 gm IV yesterday, will give 6 gm IV magnesium, schedule p o magnesium today - K low at 3.5, oral repletion Hyponatremia: - Na of 129, fluid restriction of one liter Tachycardia: - Metoprolol PRN HR>125 - Improved Fevers: - UA unremarkable, no evidence of pneumonia - Blood cultures negative - Paracentesis negative for SBP - CXR negative - Still having occasional low-grade fevers Constipation/hepatic encephalopathy: - Resolved, give lactulose once daily Severe protein/calorie malnutrition: - Poor intake/lean muscle body loss, nutrition consult - Encourage better intake Alcoholic hepatitis/cirrhosis: - Paracentesis 5 liters done 11/01, which showed no SBP - Pantoprazole daily - Restarted furosemide/spironolactone for ascites - LFT's stable Seizures: - Happened prior to hospitalization, likely due to withdrawal, severe electrolyte abnormali ties, malnutrition - Give lorazepam PRN, schedule Keppra for now - No seizures since arrival Disposition : Work with PT/case management Prophylaxis : SCD's Current Facility-Administered Medications: acetaminophen 650 mg Oral Q4H PRN albuterol 2.5 mg Nebulization RT Q4H PRN albuterol-ipratropium 3 mL Nebulization RT Q6H aluminum & magnesium hydroxide-simethicone 30 mL Oral Q4H PRN folic acid with thiamine and pyridoxine IVPB Intravenous Daily furosemide 20 mg Oral BID (8 and 16) lactulose 15 mL Oral Daily levETIRAcetam 500 mg Oral BID LORazepam 1-4 mg Oral PRN Or LORazepam 0.5-4 mg Intravenous PRN magnesium oxide 400 mg Oral Daily metoprolol tartrate 2.5 mg Intravenous Q4H PRN ondansetron 4 mg Intravenous Q6H PRN oxyCODONE 5 mg Oral Q6H PRN pantoprazole 40 mg Oral QAM AC polyethylene glycol 17 g Oral Daily PRN spironolactone 50 mg Oral BID (8 and 16) Total time of approximately 25 minutes was spent with the patient and/or patient's family, and/or on the patient's floor/unit, of which more than 50% was spent counseling and/or coord ination the patient's care as outlined above. Jakub Chun 11/06/2016 10:54 [facility] Portions of this chart may have been created with [email or web address] voice recognition software. Occasi onal wrong-word or sound-alike substitutions may have occurred due to the inherent gallardo itations of voice recognition software. Please read the chart carefully and recognize, using context, where these substitutions have occurred Jakub Macias MD - 11/05/2016 11:30 AM PDT [facility] Hospitalist Progress Note Shaila Son is a 46 y.o. female SUBJECTIVE: Had some headache earlier today. No chest pain or shortness of breath. Abdomen still fe els distended. VITALS: Temp: 37.2 C (99 F), Pulse: 109, Resp: 20, BP: (!) 146/98, SpO2 97 % on room air at shahla w rate 2L/min Temp Min: 36.9 C (98.4 F) Max: 37.7 C (99.9 F) Weight: 74.7 kg (164 lb 10.9 oz) Intake/Output Summary (Last 24 hours) at 11/05/16 1130 Last data filed at 11/05/16 0900 Gross per 24 hour Intake 240 ml Output 2275 ml Net -2035 ml PHYSICAL EXAM: General: Alert, awake, drowsy but arousable, frail, cachectic Cardiovascular: Tachycardic, regular Respiratory: CTA bilaterally, scattered wheezing Abdomen: Distended, nontender, bowel sounds present Extremities: WWP, trace edema in extremities Neurological: Alert and oriented x 3 Jackson catheter present: No DIAGNOSTIC STUDIES: Available data and images were reviewed personally. Significant results and findings are a ddressed here or in the Assessment and Plan. Recent Results (from the past 24 hour(s)) Comprehensive Metabolic Panel Result Value Ref Range NA 131 (L) 136 - 149 mmol/L K 3.5 3.5 - 5.1 mmol/L CL 105 98 - 109 mmol/L CO2 21 (L) 24 - 31 mmol/L ANION GAP 5 3 - 16 mmol/L GLUCOSE 100 70 - 109 mg/dL BUN 7 7 - 18 mg/dL Creatinine, Serum/Plasma 0.71 0.60 - 1.30 mg/dL eGFR if not >60 >=60 mL/min/1.73m2 CALCIUM 7.5 (L) 8.3 - 10.5 mg/dL ALBUMIN 1.4 (L) 3.2 - 5.0 g/dL BILIRUBIN TOTAL 0.7 0.1 - 1.5 mg/dL Total protein 5.0 (L) 6.0 - 7.8 g/dL AST 28 10 - 42 U/L ALT 12 6 - 45 U/L ALK PHOS 94 40 - 110 U/L GLOBULIN 3.6 2.1 - 3.8 g/dL Albumin/Globulin ratio 0.4 (L) 0.8 - 2.0 BUN/CREA 9.9 CBC with Differential Result Value Ref Range WBC 4.4 4.0 - 11.0 K/uL RBC 2.65 (L) 3.70 - 5.20 M/uL Hgb 8.5 (L) 11.5 - 16.0 g/dL Hct 25.4 (L) 34.0 - 47.0 % MCV 96.0 83.0 - 101.0 fL MCH 32.0 28.0 - 35.0 pg MCHC 33.3 32.0 - 36.0 g/dL RDW-CV 15.5 (H) <15.0 % Platelet Count 116 (L) 140 - 440 K/uL MPV 7.9 fL % Neutrophils 50.6 45.0 - 82.0 % % Lymphocytes 13.3 (L) 20.0 - 45.0 % % Monocytes 24.5 (H) 4.0 - 12.0 % % Eosinophils 8.2 (H) 0.0 - 5.0 % % Basophils 3.4 (H) 0.0 - 1.0 % Absolute Neutrophils 2.20 1.80 - 8.50 K/uL Absolute Lymphocytes 0.60 0.60 - 3.20 K/uL Absolute Monocytes 1.10 (H) 0.00 - 1.00 K/uL Absolute Eosinophils 0.40 0.00 - 0.40 K/uL Absolute Basophils 0.20 (H) 0.00 - 0.10 K/uL Magnesium Result Value Ref Range MG 1.2 (L) 1.8 - 2.5 mg/dL No results found. ASSESSMENT and PLAN: Active Hospital Problems Diagnosis Alcohol withdrawal seizure *Alcohol withdrawal syndrome with complication Acute hyponatremia Acute hypokalemia Bilateral lower extremity edema Alcoholic cirrhosis of liver with ascites Ascites due to alcoholic cirrhosis Resolved Hospital Problems Diagnosis Date Noted Date Resolved No resolved problems to display. Alcoholism/alcohol withdrawal: - Debilitating, her main medical problem - No lorazepam in the last shift - States she has been through rehab programs in the past, wants to quit Hypomagnesemia/hypokalemia: - Mg severely low at 1.2, give 4 gm IV today - K low at 3.5, oral repletion Tachycardia: - Metoprolol PRN HR>125 - Improved Fevers: - UA unremarkable, no evidence of pneumonia - Blood cultures negative - Paracentesis negative for SBP - Fevers resolved - Stop ceftriaxone Constipation/hepatic encephalopathy: - Resolved, give lactulose once daily Severe protein/calorie malnutrition: - Poor intake/lean muscle body loss, nutrition consult Alcoholic hepatitis/cirrhosis: - Paracentesis 5 liters done 11/01, which showed no SBP - Pantoprazole daily - Restart furosemide/spironolactone for ascites - LFT's improved Seizures: - Happened prior to hospitalization, likely due to withdrawal, severe electrolyte abnormali ties, malnutrition - Give lorazepam PRN, schedule Keppra for now - No seizures since arrival Disposition : Home vs. SNF Prophylaxis : SCD's Current Facility-Administered Medications: acetaminophen 650 mg Oral Q4H PRN albuterol 2.5 mg Nebulization RT Q4H PRN albuterol-ipratropium 3 mL Nebulization RT Q6H aluminum & magnesium hydroxide-simethicone 30 mL Oral Q4H PRN folic acid with thiamine and pyridoxine IVPB Intravenous Daily furosemide 20 mg Oral BID (8 and 16) lactulose 15 mL Oral Daily levETIRAcetam 500 mg Oral BID LORazepam 1-4 mg Oral PRN Or LORazepam 0.5-4 mg Intravenous PRN magnesium sulfate 4 g Intravenous Once metoprolol tartrate 2.5 mg Intravenous Q4H PRN ondansetron 4 mg Intravenous Q6H PRN oxyCODONE 5 mg Oral Q6H PRN pantoprazole 40 mg Oral QAM AC polyethylene glycol 17 g Oral Daily PRN spironolactone 50 mg Oral BID (8 and 16) Total time of approximately 25 minutes was spent with the patient and/or patient's family, and/or on the patient's floor/unit, of which more than 50% was spent counseling and/or coord ination the patient's care as outlined above. Jakub Chun 11/05/2016 11:30 [facility] Portions of this chart may have been created with [email or web address] voice recognition software. Occasi onal wrong-word or sound-alike substitutions may have occurred due to the inherent gallardo itations of voice recognition software. Please read the chart carefully and recognize, using context, where these substitutions have occurred Gilberto, Jakub Smith MD - 11/04/2016 8:52 AM PDT [facility] Hospitalist Progress Note Shaila Son is a 46 y.o. female SUBJECTIVE: Reported pain to nurse, although not to me. No acute shortness of breath. Unable to pro vide much history. Received only 1 mg of lorazepam last night. VITALS: Temp: 36 C (96.8 F), Pulse: 100, Resp: 26, BP: 131/88, SpO2 98 % on room air at flow ra te 2L/min Temp Min: 36 C (96.8 F) Max: 37 C (98.6 F) Weight: 74.7 kg (164 lb 10.9 oz) Intake/Output Summary (Last 24 hours) at 11/04/16 0852 Last data filed at 11/04/16 0719 Gross per 24 hour Intake 1608 ml Output 500 ml Net 1108 ml PHYSICAL EXAM: General: Alert, frail, lying in bed, anxious Cardiovascular: Tachycardic, regular Respiratory: Scattered wheezing, mild tachypnea, oxygen sat in the high 90's-100 Abdomen: Distended, nontender, bowel sounds present Extremities: WWP, trace edema bilaterally Neurological: Oriented to [facility], person, not hospital Jackson catheter present: No DIAGNOSTIC STUDIES: Available data and images were reviewed personally. Significant results and findings are a ddressed here or in the Assessment and Plan. Recent Results (from the past 24 hour(s)) Comprehensive Metabolic Panel Result Value Ref Range NA 134 (L) 136 - 149 mmol/L K 3.8 3.5 - 5.1 mmol/L CL 105 98 - 109 mmol/L CO2 24 24 - 31 mmol/L ANION GAP 5 3 - 16 mmol/L GLUCOSE 96 70 - 109 mg/dL BUN 8 7 - 18 mg/dL Creatinine, Serum/Plasma 0.73 0.60 - 1.30 mg/dL eGFR if not >60 >=60 mL/min/1.73m2 CALCIUM 7.4 (L) 8.3 - 10.5 mg/dL ALBUMIN 1.4 (L) 3.2 - 5.0 g/dL BILIRUBIN TOTAL 0.9 0.1 - 1.5 mg/dL Total protein 5.0 (L) 6.0 - 7.8 g/dL AST 29 10 - 42 U/L ALT 11 6 - 45 U/L ALK PHOS 89 40 - 110 U/L GLOBULIN 3.6 2.1 - 3.8 g/dL Albumin/Globulin ratio 0.4 (L) 0.8 - 2.0 BUN/CREA 11.0 CBC with Differential Result Value Ref Range WBC 4.5 4.0 - 11.0 K/uL RBC 2.60 (L) 3.70 - 5.20 M/uL Hgb 8.4 (L) 11.5 - 16.0 g/dL Hct 25.0 (L) 34.0 - 47.0 % MCV 96.2 83.0 - 101.0 fL MCH 32.3 28.0 - 35.0 pg MCHC 33.6 32.0 - 36.0 g/dL RDW-CV 15.2 (H) <15.0 % Platelet Count 91 (L) 140 - 440 K/uL MPV 8.4 fL % Neutrophils 60.0 45.0 - 82.0 % % Lymphocytes 10.5 (L) 20.0 - 45.0 % % Monocytes 16.8 (H) 4.0 - 12.0 % % Eosinophils 9.5 (H) 0.0 - 5.0 % % Basophils 3.2 (H) 0.0 - 1.0 % Absolute Neutrophils 2.70 1.80 - 8.50 K/uL Absolute Lymphocytes 0.50 (L) 0.60 - 3.20 K/uL Absolute Monocytes 0.80 0.00 - 1.00 K/uL Absolute Eosinophils 0.40 0.00 - 0.40 K/uL Absolute Basophils 0.10 0.00 - 0.10 K/uL Magnesium Result Value Ref Range MG 1.6 (L) 1.8 - 2.5 mg/dL Protime INR Result Value Ref Range PROTIME 16.9 (H) 11.3 - 13.9 seconds INR 1.34 (H) 0.90 - 1.10 Xr Chest Ap Portable Result Date: 11/03/2016 EXAM: XR CHEST AP PORTABLE dated 11/03/2016 10:58 AM HISTORY: PICC tip position Comparison: None. TECHNIQUE: A single portable view of the chest. FINDINGS: The PICC line has been repos itioned. The catheter tip is now directed towards the heart. The tip is in the mid superio r vena cava. Bilateral parenchymal opacities are persistent and not significantly changed. The cardiac and mediastinal contours are stable. No pneumothorax. The osseous structures are stable. IMPRESSION - Right PICC line tip now within the mid superior vena cava. Dictated and Signed by: Hakeem Barroso MD Electronically signed: 11/03/2016 11:21 AM ASSESSMENT and PLAN: Active Hospital Problems Diagnosis Alcohol withdrawal seizure *Alcohol withdrawal syndrome with complication Acute hyponatremia Acute hypokalemia Bilateral lower extremity edema Alcoholic cirrhosis of liver with ascites Ascites due to alcoholic cirrhosis Resolved Hospital Problems Diagnosis Date Noted Date Resolved No resolved problems to display. Alcoholism/alcohol withdrawal: - Debilitating, her main medical problem - Lorazepam needs decreased, plan to transfer to the floor today - Encourage cessation when she is able to have conversation, more awake today than yesterda y Hypomagnesemia/hypokalemia: - Replete magnesium Tachycardia: - Metoprolol PRN HR>125 - Likely due to withdrawal Fevers: - UA unremarkable, no evidence of pneumonia - Blood cultures negative - Paracentesis negative for SBP - Fevers resolved - Stop ceftriaxone Constipation/hepatic encephalopathy: - Resolved, give lactulose once daily Severe protein/calorie malnutrition: - Poor intake/lean muscle body loss, nutrition consult Alcoholic hepatitis/cirrhosis: - Paracentesis 5 liters done 11/01, which showed no SBP - Pantoprazole daily - Restart furosemide/spironolactone now Seizures: - Happened prior to hospitalization, likely due to withdrawal, severe electrolyte abnormali ties, malnutrition - Give lorazepam PRN, schedule Keppra for now - No seizures since arrival PICC line fixed Disposition : Transfer to floor today Prophylaxis : SCD's Current Facility-Administered Medications: acetaminophen 650 mg Oral Q4H PRN albuterol 2.5 mg Nebulization RT Q4H PRN albuterol-ipratropium 3 mL Nebulization RT Q6H aluminum & magnesium hydroxide-simethicone 30 mL Oral Q4H PRN folic acid with thiamine and pyridoxine IVPB Intravenous Daily levETIRAcetam 500 mg Intravenous 2 times per day LORazepam 1-4 mg Oral PRN Or LORazepam 0.5-4 mg Intravenous PRN metoprolol tartrate 2.5 mg Intravenous Q4H PRN ondansetron 4 mg Intravenous Q6H PRN oxyCODONE 5 mg Oral Q6H PRN pantoprazole 40 mg Oral QAM AC polyethylene glycol 17 g Oral Daily PRN Total time of approximately 25 minutes was spent with the patient and/or patient's family, and/or on the patient's floor/unit, of which more than 50% was spent counseling and/or coord ination the patient's care as outlined above. Jakub Chun 11/04/2016 8:52 [facility] Portions of this chart may have been created with [email or web address] voice recognition software. Occasi onal wrong-word or sound-alike substitutions may have occurred due to the inherent gallardo itations of voice recognition software. Please read the chart carefully and recognize, using context, where these substitutions have occurred Dolores Martin RN - 11/03/2016 10:54 AM PDTRequested eval of PICC tip internal jugular placement. Both lumens flushed with NS; PCXR obtained showing PICC tip now SVC. Report to JAIME Martin who continues care. aJkub Macias MD - 11/03/2016 7:49 AM PDT [facility] Hospitalist Progress Note Shaila Son is a 46 y.o. female SUBJECTIVE: Has some pain in her abdomen and her feet. Some shortness of breath, even at rest. Only needed 4 mg of lorazepam last night. Unable to give other history. VITALS: Temp: 37.1 C (98.8 F), Pulse: 122, Resp: (!) 35, BP: (!) 122/92, SpO2 90 % on room air at flow rate 2L/min Temp Min: 36.1 C (96.9 F) Max: 37.1 C (98.8 F) Weight: 74.7 kg (164 lb 10.9 oz) Intake/Output Summary (Last 24 hours) at 11/03/16 0749 Last data filed at 11/03/16 0400 Gross per 24 hour Intake 1851 ml Output 830 ml Net 1021 ml PHYSICAL EXAM: General: More alert, drowsy but arousable Cardiovascular: Tachycardic, regular, no m/r/g Respiratory: Tachypneic, although no increased work of breathing, lungs clear Abdomen: Soft, mildly distended, nontender, positive fluid wave, bowel sounds present Extremities: WWP, minimal edema in feet Skin: Rash over midline abdomen, on both calves Neurological: Oriented to person, year, date, not location Jackson catheter present: Yes DIAGNOSTIC STUDIES: Available data and images were reviewed personally. Significant results and findings are a ddressed here or in the Assessment and Plan. Recent Results (from the past 24 hour(s)) Basic Metabolic Panel Result Value Ref Range [...] Absolute Basophils 0.00 0.00 - 0.10 K/uL Magnesium Result Value Ref Range MG 1.9 1.8 - 2.5 mg/dL Xr Chest Ap Portable Result Date: 11/02/2016 EXAM: XR CHEST AP PORTABLE dated 11/02/2016 6:03 AM HISTORY: dyspnea, tachypnea Comparison: Chest x-rays dating to October 31, 2016 TECHNIQUE: A single portable view of the chest. FINDING S: The right approach PICC line catheter is directed into the internal jugular vein. Lung v olumes are low bilaterally. This results in bronchovascular crowding. It also accentuates bilateral lower lobe parenchymal opacities. Stable cardiac and mediastinal contours. IMPRESS ION - The right approach PICC line catheter is directed into the right internal jugular vein . Persistent bilateral airspace opacities. The case was discussed with Dr. Jakub Chun at 8:30 on the morning of the exam. Dictated and Signed by: Hakeem Barroso MD Electronicall y signed: 11/02/2016 8:34 AM Xr Chest Ap Portable Result Date: 11/01/2016 XR CHEST AP PORTABLE 11/01/2016 5:04 PM HISTORY: PICC tip placement AFTER pulled back 4 cm. COMPARISON: Multiple priors. Findings: There is a right PICC line with tip in the upper SVC with tip about 3.2 cm above the cavoatrial junction. The heart is enlarged. Aorta is normal. Mediastinum is unremarkable. There is prominence of the pulmonary vasculature with cephaliz ation. There is improved mild atelectasis in the right lung base. Stable moderate atelectasi s is in the left perihilar region. Moderate elevation of the right hemidiaphragm is seen. Th ere is lumbar fusion hardware. IMPRESSION - Right PICC line with tip in in the upper SVC abo ut 3.2 cm above the cavoatrial junction. Improved mild atelectasis in right lung base, stabl e moderate atelectasis in left perihilar region. Prominence of central pulmonary vasculature with cephalization that can be seen with fluid overload. Cardiomegaly. Dictated and Signed by: Austin Crane MD Electronically signed: 11/01/2016 5:13 PM Xr Chest Ap Portable Result Date: 11/01/2016 XR CHEST AP PORTABLE 11/01/2016 2:18 PM HISTORY: picc line tip placement. COMPARISON: Multip le priors. Findings: There is interval placement of a right PICC line with tip in the right atrium about 4.0 cm below the cavoatrial junction. The heart is enlarged. Aorta is normal. M ediastinum is unremarkable. There is prominence of the pulmonary vasculature with cephalizat ion. There is moderate atelectasis in the right lung base. Evaluation for gas below the righ t hemidiaphragm is limited due to the presence of the atelectasis. Moderate elevation of the right hemidiaphragm is seen. There is lumbar fusion hardware. IMPRESSION - Interval placeme nt of right PICC line with tip in right atrium about 4.0 cm below the cavoatrial junction. M oderate atelectasis in right lung base. Evaluation for gas below the right hemidiaphragm is limited due to the presence of the atelectasis. A follow-up chest x-ray is recommended for f urther evaluation. Prominence of central pulmonary vasculature with cephalization that can b e seen with fluid overload. Cardiomegaly. These findings were called to the covering nurse. Dictated and Signed by: Austin Crane MD Electronically signed: 11/01/2016 2:35 PM Us Guided Paracentesis Result Date: 11/01/2016 EXAM: Ultrasound guided paracentesis. CLINICAL INFORMATION: Possible SBP, severe ascites CO MPARISON: 09/03/2015 and sonogram PROCEDURE: Informed consent was obtained and a final timeou t was performed. Preliminary ultrasound showed a peritoneal fluid collection. The skin was m arked and sterilely prepped and draped. 4 mm Lidocaine 1% infiltrated into the subcutaneous soft tissues. A small skin incision was made. 8 [place] paracentesis needle and sheath was ad vanced under ultrasound guidance into the peritoneal fluid. The needle was removed. The cath eter was fixed to suction. Aspirate: 5000 ml of cloudy serous fluid. 1000 mL of the aspirat ed fluid was sent to the laboratory for further assessment. The catheter was removed and a s terile dressing was place. The patient tolerated procedure well without complication. FINDIN GS: Moderate ascites. IMPRESSION - Technically successful ultrasound guided paracentesis. Di ctated and Signed by: Andres Mancera MD Electronically signed: 11/01/2016 4:19 PM ASSESSMENT and PLAN: Active Hospital Problems Diagnosis Alcohol withdrawal seizure *Alcohol withdrawal syndrome with complication Acute hyponatremia Acute hypokalemia Bilateral lower extremity edema Alcoholic cirrhosis of liver with ascites Ascites due to alcoholic cirrhosis Resolved Hospital Problems Diagnosis Date Noted Date Resolved No resolved problems to display. Alcoholism/alcohol withdrawal: - Debilitating, continues to get lorazepam PRN, encourage cessation when she is able to hav e conversation, more awake today than yesterday Hypomagnesemia/hypokalemia: - Normalized this morning Acute heart failure, unknown subtype/tachycardia: - Metoprolol PRN HR>125 - Creatinine rising, does not appear acutely fluid long, no edema, stop diuretics for now - Check echo during this hospitalization Fevers: - UA unremarkable, no evidence of pneumonia - Blood cultures negative - Paracentesis negative for SBP - Stop ceftriaxone Constipation/hepatic encephalopathy: - Resolved, frequent BM's yesterday, hold lactulose for now Severe protein/calorie malnutrition: - Poor intake/lean muscle body loss, nutrition consult Alcoholic hepatitis/cirrhosis: - Paracentesis 5 liters done 11/01, which showed no SBP - Pantoprazole daily Seizures: - Happened prior to hospitalization, likely due to withdrawal, severe electrolyte abnormali ties, malnutrition - Give lorazepam PRN, schedule Keppra for now - No seizures since arrival PICC line is in the IJ, will talk to PICC nurse Disposition : Continue stepdown care for withdrawal, frequent lorazepam needs Prophylaxis : SCD's Current Facility-Administered Medications: acetaminophen 650 mg Oral Q4H PRN albuterol 2.5 mg Nebulization RT Q4H PRN albuterol-ipratropium 3 mL Nebulization RT Q6H aluminum & magnesium hydroxide-simethicone 30 mL Oral Q4H PRN cefTRIAXone 1 g Intravenous Daily folic acid with thiamine and pyridoxine IVPB Intravenous Daily levETIRAcetam 500 mg Intravenous 2 times per day LORazepam 1-4 mg Oral PRN Or LORazepam 0.5-4 mg Intravenous PRN metoprolol tartrate 5 mg Intravenous Q4H PRN ondansetron 4 mg Intravenous Q6H PRN oxyCODONE 5 mg Oral Q6H PRN pantoprazole 40 mg Oral QAM AC polyethylene glycol 17 g Oral Daily PRN potassium chloride 20 mEq Oral TID WC Total time of approximately 35 minutes was spent with the patient and/or patient's family, and/or on the patient's floor/unit, of which more than 50% was spent counseling and/or coord ination the patient's care as outlined above. Jakub Chun 11/03/2016 7:49 [facility] Portions of this chart may have been created with [email or web address] voice recognition software. Occasi onal wrong-word or sound-alike substitutions may have occurred due to the inherent gallardo itations of voice recognition software. Please read the chart carefully and recognize, using context, where these substitutions have occurred Jakub Macias MD - 11/02/2016 7:23 AM PDT [facility] Hospitalist Progress Note Shaila Son is a 46 y.o. female SUBJECTIVE: Unable to give any history. Was agitated, hallucinating at times last night. Received 4 0 mg IV furosemide last night because she appeared overloaded, was hypoxic, which has resolv ed this morning. Admits to some pain in her legs, although not able to clarify where. VITALS: Temp: 37.7 C (99.9 F), Pulse: 124, Resp: (!) 36, BP: 118/82, SpO2 94 % on room air at f low rate 2L/min Temp Min: 36.5 C (97.7 F) Max: 37.7 C (99.9 F) Weight: 74.7 kg (164 lb 10.9 oz) Intake/Output Summary (Last 24 hours) at 11/02/16 0723 Last data filed at 11/02/16 0400 Gross per 24 hour Intake 3507 ml Output 6900 ml Net -3393 ml PHYSICAL EXAM: General: Restless, responding to internal stimuli, frail, cachectic Cardiovascular: Tachycardic, regular Respiratory: Tachypneic, slight crackles in bases Abdomen: Soft, distended, midline heat rash extending over the abdomen, bowel sounds pres ent Extremities: WWP, mild dermatitis under SCD's, no edema in legs Neurological: Oriented only to person, states she is at "[facility]" [facility] Jackson catheter present: Yes If so, reason: Critically ill DIAGNOSTIC STUDIES: Available data and images were reviewed personally. Significant results and findings are a ddressed here or in the Assessment and Plan. Recent Results (from the past 24 hour(s)) , Urine, Qual Result Value Ref Range HCG SCREEN, URINE Negative Negative Basic Metabolic Panel Result Value Ref Range [...] Range MG 2.0 1.8 - 2.5 mg/dL Albumin, Body Fluid Result Value Ref Range Albumin, Body Fluid <1.0 g/dL Source Peritoneal Cell Count with Differential, Body Fluid Result Value Ref Range Specimen Source Ascites BF Appearance Hazy (A) Clear BF Nucleated cells 96 0 - 150 cells/uL BF RBC 435 cells/uL BF % Neutrophils 14 % BF % Lymphocytes 18 % BF % Macro/Lamar 68 % BF Total cells counted 100 Protein, Body Fluid Result Value Ref Range Protein, BF 1.4 g/dL Source Peritoneal Culture, Body Fluid, Aerobe Result Value Ref Range Gram Stain Result No organisms seen Gram Stain Result 2+ White Blood Cells Gram Stain Result 3+ Red blood cells Potassium Result Value Ref Range K 3.7 3.5 - 5.1 mmol/L Magnesium Result Value Ref Range MG 1.6 (L) 1.8 - 2.5 mg/dL B Type Natriuretic Peptide Result Value Ref Range BNP 1,644 (H) <100 pg/mL ECG 12 lead Result Value Ref Range VENTRICULAR RATE EKG 150 BPM QRS DURATION 86 ms Q-T INTERVAL 348 ms Q-T INTERVAL (CORRECTED) 549 ms QRS AXIS 6 degrees T AXIS 69 degrees INTERPRETATION TEXT Supraventricular tachycardia Low voltage QRS Nonspecific ST abnormality which may be secondary to rate and/or ischemia/infarction Abnormal ECG When compared with ECG of 31-OCT-2016 20:27, Supraventricular tachycardia has replaced Sinus tachycardia T wave amplitude has increased in Anterolateral leads Nonspecific ST abnormality is now present Confirmed by DAVID MADERA, PEPE ([id number]) on 11/02/2016 7:05:01 AM Comprehensive Metabolic Panel Result Value Ref Range [...] Range MG 1.9 1.8 - 2.5 mg/dL Ct Head Wo Contrast Result Date: 11/01/2016 TECHNIQUE: Noncontrast axial CT imaging was obtained through the brain with coronal and sagittal reformats. CLINICAL INFORMATION: SEIZURE (ADULT-ALCOHOLIC) COMPARISON: None availab le. FINDINGS: BONY STRUCTURES: Paranasal sinuses and mastoid air cells: Clear. Calvarium and skull base: No osseous lesion. No acute fracture. Sella: No bony expansion. EXTRACRANIAL SO FT TISSUES: Orbits: Normal. Scalp: Normal. INTRACRANIAL STRUCTURES: Ventricular system: Norm al for age. Extra-axial spaces: Mild to moderate diffuse prominence without abnormal fluid c ollection. Basilar cisterns are preserved. Intracranial hemorrhage: None. Intracranial mass: None. Midline shift: None. Brain parenchyma: Mild ill-defined areas of hypoattenuation are noted within the periventricular and subcortical white matter. Preservation of the puckett-whit e matter differentiation. Brainstem: Normal. VASCULAR SYSTEM: No dense MCA. IMPRESSION - No acute intracranial abnormality. Mild to moderate diffuse parenchymal atrophy and mild white matter changes, advanced for patient's age. Dictated and Signed by: Andres Mancera MD Elec tronically signed: 11/01/2016 11:28 AM Xr Chest Ap Portable Result Date: 11/01/2016 XR CHEST AP PORTABLE 11/01/2016 5:04 PM HISTORY: PICC tip placement AFTER pulled back 4 cm. COMPARISON: Multiple priors. Findings: There is a right PICC line with tip in the upper SVC with tip about 3.2 cm above the cavoatrial junction. The heart is enlarged. Aorta is normal. Mediastinum is unremarkable. There is prominence of the pulmonary vasculature with cephaliz ation. There is improved mild atelectasis in the right lung base. Stable moderate atelectasi s is in the left perihilar region. Moderate elevation of the right hemidiaphragm is seen. Th ere is lumbar fusion hardware. IMPRESSION - Right PICC line with tip in in the upper SVC abo ut 3.2 cm above the cavoatrial junction. Improved mild atelectasis in right lung base, stabl e moderate atelectasis in left perihilar region. Prominence of central pulmonary vasculature with cephalization that can be seen with fluid overload. Cardiomegaly. Dictated and Signed by: Austin Crane MD Electronically signed: 11/01/2016 5:13 PM Xr Chest Ap Portable Result Date: 11/01/2016 XR CHEST AP PORTABLE 11/01/2016 2:18 PM HISTORY: picc line tip placement. COMPARISON: Multip le priors. Findings: There is interval placement of a right PICC line with tip in the right atrium about 4.0 cm below the cavoatrial junction. The heart is enlarged. Aorta is normal. M ediastinum is unremarkable. There is prominence of the pulmonary vasculature with cephalizat ion. There is moderate atelectasis in the right lung base. Evaluation for gas below the righ t hemidiaphragm is limited due to the presence of the atelectasis. Moderate elevation of the right hemidiaphragm is seen. There is lumbar fusion hardware. IMPRESSION - Interval placeme nt of right PICC line with tip in right atrium about 4.0 cm below the cavoatrial junction. M oderate atelectasis in right lung base. Evaluation for gas below the right hemidiaphragm is limited due to the presence of the atelectasis. A follow-up chest x-ray is recommended for f urther evaluation. Prominence of central pulmonary vasculature with cephalization that can b e seen with fluid overload. Cardiomegaly. These findings were called to the covering nurse. Dictated and Signed by: Austin Crane MD Electronically signed: 11/01/2016 2:35 PM Xr Chest Ap Portable Result Date: 11/01/2016 EXAM: XR CHEST AP PORTABLE dated 10/31/2016 8:26 PM HISTORY: SEIZURE (ADULT-ALCOHOLIC) Keith rison: September 01, 2015 TECHNIQUE: A single portable view of the chest. FINDINGS: Chronic elevat ion of the right hemidiaphragm. Mild prominence of the central pulmonary vessels. No acute airspace disease. No pneumothorax. No large pleural effusions. There is moderate cardiom egaly. There are no visible acute osseous abnormalities. Fusion related changes in the lum bar spine. IMPRESSION - Cardiomegaly and prominent pulmonary vessels suggest underlying pulm onary venous congestion. No acute airspace disease. Dictated and Signed by: Hakeem Barroso MD Electronically signed: 11/01/2016 8:22 AM Us Guided Paracentesis Result Date: 11/01/2016 EXAM: Ultrasound guided paracentesis. CLINICAL INFORMATION: Possible SBP, severe ascites CO MPARISON: 09/03/2015 and sonogram PROCEDURE: Informed consent was obtained and a final timeou t was performed. Preliminary ultrasound showed a peritoneal fluid collection. The skin was m arked and sterilely prepped and draped. 4 mm Lidocaine 1% infiltrated into the subcutaneous soft tissues. A small skin incision was made. 8 [place] paracentesis needle and sheath was ad vanced under ultrasound guidance into the peritoneal fluid. The needle was removed. The cath eter was fixed to suction. Aspirate: 5000 ml of cloudy serous fluid. 1000 mL of the aspirat ed fluid was sent to the laboratory for further assessment. The catheter was removed and a s terile dressing was place. The patient tolerated procedure well without complication. FINDIN GS: Moderate ascites. IMPRESSION - Technically successful ultrasound guided paracentesis. Di ctated and Signed by: Andres Mancera MD Electronically signed: 11/01/2016 4:19 PM ASSESSMENT and PLAN: Active Hospital Problems Diagnosis Alcohol withdrawal seizure *Alcohol withdrawal syndrome with complication Acute hyponatremia Acute hypokalemia Bilateral lower extremity edema Alcoholic cirrhosis of liver with ascites Ascites due to alcoholic cirrhosis Resolved Hospital Problems Diagnosis Date Noted Date Resolved No resolved problems to display. Seizures: - Happened prior to hospitalization, likely due to withdrawal, severe electrolyte abnormali ties, malnutrition - Give lorazepam PRN, schedule Keppra for now Hypomagnesemia/hypokalemia: - Normalized this morning - Continue scheduled KCl po Acute heart failure, unknown subtype/tachycardia: - Metoprolol PRN HR>125 - Scheduled furosemide/spironolactone - Check echo during this hospitalization Fevers: - UA unremarkable, no evidence of pneumonia - Awaiting blood cultures - Paracentesis negative for SBP - Schedule ceftriaxone now while waiting for blood cultures Constipation/hepatic encephalopathy: - Lactulose Severe protein/calorie malnutrition: - Poor intake/lean muscle body loss, nutrition consult Alcoholism: - Debilitating, will give lorazepam PRN, encourage cessation Alcoholic hepatitis/cirrhosis: - Paracentesis 5 liters done 11/01, which showed no SBP - Pantoprazole daily Disposition : Unclear Prophylaxis : SCD's Current Facility-Administered Medications: acetaminophen 650 mg Oral Q4H PRN albuterol 2.5 mg Nebulization RT Q4H PRN albuterol-ipratropium 3 mL Nebulization RT Q6H aluminum & magnesium hydroxide-simethicone 30 mL Oral Q4H PRN cefTRIAXone 1 g Intravenous Daily folic acid with thiamine and pyridoxine IVPB Intravenous Daily lactulose 30 mL Oral Daily levETIRAcetam 500 mg Intravenous 2 times per day LORazepam 1-8 mg Intravenous Q15 Min PRN metoprolol tartrate 5 mg Intravenous Q4H PRN ondansetron 4 mg Intravenous Q6H PRN oxyCODONE 5 mg Oral Q6H PRN pantoprazole 40 mg Oral QAM AC polyethylene glycol 17 g Oral Daily PRN potassium chloride 20 mEq Oral TID WC spironolactone 50 mg Oral BID Total time of approximately 35 minutes was spent with the patient and/or patient's family, and/or on the patient's floor/unit, of which more than 50% was spent counseling and/or coord ination the patient's care as outlined above. Jakub Chun 11/02/2016 7:23 [facility] Portions of this chart may have been created with [email or web address] voice recognition software. Occasi onal wrong-word or sound-alike substitutions may have occurred due to the inherent gallardo itations of voice recognition software. Please read the chart carefully and recognize, using context, where these substitutions have occurred Francisco De La Garza DO - 11/02/2016 12:42 AM PDT [facility] BRIEF NIGHT COVERAGE NOTE Patient: Shaila Son : 1970: Age: 46 y.o. MedRec: [id number] Admission date: 10/31/2016 Hospital day # : 1 Physician author: Francisco Choi DO Today: 11/02/2016 NIGHT HOSPITALIST COVERAGE NOTE I was notified by patient's nurse that this evening patient has been more tachypneic with r espiratory rate 30s and tachycardic with heart rates in 140s to 150s with coarse rales and e xpiratory wheezing. Stat EKG was done which to my review shows patient to be in narrow complex tachycardia with ventricular rate of 150 BPM which appears regular. Stat potassium is 3.7, magnesium 1.6 an d BNP of 1644. Per nursing report patient was given 5 mg IV metoprolol with heart rates now down to 120s. Review of patient's chest x-ray on 11/01 showed presence of central vascular congestion with cephalization and cardiomegaly suggestive of fluid overload. Patient is 4500 cc fluid nega tive since admission however. Plan: We'll give patient 40 mg IV Lasix 1, replace low magnesium with 2 g magnesium rider . Will get repeat portable chest x-ray this morning. Patient is already on oral potassium replacement therapy 3 times daily. Continue cardiac monitoring in step down. Francisco Choi DO 11/02/2016 0:42 [facility] Portions of this chart may have been created with [email or web address] voice recognition software. Occasi onal wrong-word or sound-alike substitutions may have occurred due to the inherent gallardo itations of voice recognition software. Please read the chart carefully and recognize, using context, where these substitutions have occurred Annmarie Adkins, Ph armD - 11/01/2016 1:13 PM PDT PHARMACY SERVICES: ADMISSION MEDICATION REVIEW Shaila Son is a 46 y.o. female admitted on 10/31/16. Patient is not a reliable historian. Location of Patient when reviewed: ED X Medical Floor Patient s prior to admit medication and over the counter (OTC) medications/herbal supplem ents list obtained from: X Verbal interview X Patient UNABLE to recall name, strength, and direction [facility] dr m[facility] and trixie rose PA-C nurses) X [facility] X [employer] insurance reported information X Care Everywhere X Other sources: Verbal Interview with Family (Bee) Vaccines up to date? Yes No Unsure Influenza X Pneumococcal X Tdap X Shingles X Noted medications discrepancies or medication-related issues: Dosage change: Medication: Prior to Admission Sig: Correct sig: Furosemide 40mg 1 tab by mouth twice daily 1 tab by mouth daily Potassium chloride 10meq 2 capsules by mouth daily 1 capsule by mouth daily Medication added: Medication: Prior to Admission Sig: Spironolactone 25mg 2 tabs by mouth twice daily Polyethylene glycol 3350 17g by mouth daily as needed for constipation Removed therapy: Medication: Prior to Admission Sig: Reason for Removal: Lactulose 10g/15ml 20g by mouth four times daily Therapy complete- provider discontinued Rifaximin 550mg 1 tab by mouth twice daily Therapy complete Spironolactone 50mg 2 tabs by mouth twice daily Therapy complete- dose adjustment Recreational Substances , Tobacco & Alcohol use : Drug: Route Frequency: Last Used: Alcohol At least a 6-pack daily Other: Family is unsure of what vitamins and supplements she is taking other than the ones that are on the [employer] list Medication review performed and electronically signed by Lily Davison, Rn Ostomy 2016 13:04 Reviewed by Annmraie Mcfadden, PharmD 11/01/2016 13:12 akub Chun MD - 11/01/2016 9:25 AM PDT [facility] PMG Hospitalist Progress Note Shaila Son is a 46 y.o. female SUBJECTIVE: Reportedly was anxious this morning, requesting to leave, received 6 mg lorazepam thus fa r. Unable to give any history. Sister reports that she has had several seizures in the 2-3 days, usually doesn't have seizures. Drinks a 6-pack a day. Progressive abdominal and leg swelling over the last month. Wants to quit drinking. VITALS: Temp: 37.5 C (99.5 F), Pulse: 119, Resp: 19, BP: (!) 150/91, SpO2 93 % on room air at f low rate L/min Temp Min: 37.4 C (99.4 F) Max: 38.3 C (100.9 F) Weight: 74.7 kg (164 lb 10.9 oz) Intake/Output Summary (Last 24 hours) at 11/01/16 0925 Last data filed at 11/01/16 0900 Gross per 24 hour Intake 530 ml Output 2250 ml Net -1720 ml PHYSICAL EXAM: General: Drowsy (just received albumin) but arousable, frail, cachectic, temporal and thena r muscle wasting Cardiovascular: Tachycardic, regular Respiratory: CTA anteriorly, dull in bases Abdomen: Firm, distended, bowel sounds present, no rebound/guarding Extremities: Trace edema in legs Neurological: Not verbalizing currently, although alert and conversant this morning Jackson catheter present: Yes If so, reason: Critically ill, monitor urine output DIAGNOSTIC STUDIES: Available data and images were [...] Range PTT 23 22 - 36 seconds Lactic Acid Result Value Ref Range LACTATE 2.8 (H) 0.5 - 2.2 mmol/L Amylase Result Value Ref Range AMYLASE 149 (H) 27 - 100 IU/L Lipase Result Value Ref Range LIPASE 24 0 - 60 U/L Salicylate Level Result Value Ref Range Salicylate <4.0 <30.0 mg/dL Ethanol Result Value Ref Range ALCOHOL, SERUM/PLASMA 100 <400 mg/dL Acetaminophen Level Result Value Ref Range Acetaminophen Level <10 <10 ug/mL Culture, Blood Result Value Ref Range Culture No growth: Monitored continually by instrument for 5 days Culture, Blood Result Value Ref Range Culture No growth: Monitored continually by instrument for 5 days Extra Green Top Tube Result Value Ref Range Extra Green Top Tube Done Magnesium Result Value Ref Range MG 1.3 (L) 1.8 - 2.5 mg/dL Ammonia Result Value Ref Range AMMONIA 33 11 - 35 umol/L Urinalysis with Microscopic with Culture if Indicated Result Value Ref Range COLOR Coleen (A) Light Yellow, Yellow, Straw CLARITY Cloudy (A) Clear PH UA 6.0 5.0 - 8.0 Specific Clawson 1.014 1.001 - 1.030 PROTEIN UA >=500 [...] /LPF URINE COMMENT Urine Culture Not Indicated ECG 12 lead Result Value Ref Range VENTRICULAR RATE EKG 114 BPM ATRIAL RATE 114 BPM P-R INTERVAL 144 ms QRS DURATION 90 ms Q-T INTERVAL 342 ms Q-T INTERVAL (CORRECTED) 471 ms P WAVE AXIS 54 degrees QRS AXIS -7 degrees T AXIS 47 degrees INTERPRETATION TEXT Sinus tachycardia Otherwise normal ECG No previous ECGs available Confirmed by PEPE HERNANDEZ MD ([id number]) on 11/01/2016 6:25:42 AM Urinalysis with Microscopic with Culture if Indicated Result Value Ref Range COLOR Straw Light Yellow, Yellow, Straw CLARITY Clear Clear PH UA 6.0 5.0 - 8.0 Specific Clawson 1.005 1.001 - 1.030 PROTEIN UA 30 [...] K/uL Magnesium Result Value Ref Range MG 1.2 (L) 1.8 - 2.5 mg/dL Phosphorus Result Value Ref Range PHOSPHORUS 3.4 2.5 - 4.6 mg/dL Ct Head Wo Contrast Result Date: 10/31/2016 CT HEAD WITHOUT CONTRAST CLINICAL INFORMATION: 46-year-old female. Multiple seizures and f alling. Alcohol withdrawal.s COMPARISON: None relevant. PROCEDURE: Axial images were obtaine d through the head without IV contrast. Multiplanar reformations were obtained from the acqu isition data. At least one of the following CT dose optimization techniques were used: Autom ated exposure control; Adjustment of mA and/or kV according to patient size; Use of iterativ e reconstruction technique. FINDINGS: Brain: No intracranial hemorrhage. No midline shift or pathologic mass effect. No cerebral edema, mass lesion, or evidence of acute infarct. Mild diffuse cerebral and cerebellar volume loss, advanced for patient's age. Ventricles and extr a-axial fluid spaces: Normal. Paranasal sinuses and mastoid air cells: Normal. Calvarium and extracranial soft tissues: Normal. Orbits: Imaged portions of the orbits are normal. IMPRES MARILUZ: 1. No acute intracranial process. No evidence of mass effect, acute hemorrhage or def inite acute cortical infarct. 2. Mild diffuse cerebral and cerebellar volume loss, advanced for patient's age. Signed by: Dorothea Alonso Report sent: 10/31/2016 11:59:56 PM Xr Chest Ap Portable Result Date: 11/01/2016 EXAM: XR CHEST AP PORTABLE dated 10/31/2016 8:26 PM HISTORY: SEIZURE (ADULT-ALCOHOLIC) Keith rison: September 01, 2015 TECHNIQUE: A single portable view of the chest. FINDINGS: Chronic elevat ion of the right hemidiaphragm. Mild prominence of the central pulmonary vessels. No acute airspace disease. No pneumothorax. No large pleural effusions. There is moderate cardiom egaly. There are no visible acute osseous abnormalities. Fusion related changes in the lum bar spine. IMPRESSION - Cardiomegaly and prominent pulmonary vessels suggest underlying pulm onary venous congestion. No acute airspace disease. Dictated and Signed by: Hakeem Barroso MD Electronically signed: 11/01/2016 8:22 AM ASSESSMENT and PLAN: Active Hospital Problems Diagnosis Alcohol withdrawal seizure *Alcohol withdrawal syndrome with complication Acute hyponatremia Acute hypokalemia Bilateral lower extremity edema Alcoholic cirrhosis of liver with ascites Ascites due to alcoholic cirrhosis Resolved Hospital Problems Diagnosis Date Noted Date Resolved No resolved problems to display. Seizure: - Likely due to withdrawals, severe electrolyte abnormalities, malnutrition - Give lorazepam PRN, schedule Keppra for now Hypomagnesemia/hypokalemia: - Correct before giving furosemide aggressively, recheck this afternoon Fevers: - UA unremarkable, no evidence of pneumonia - Awaiting blood cultures - Concerned for SBP, will give ceftriaxone now and check paracentesis as soon as possible Constipation/hepatic encephalopathy: - Lactulose Severe protein/calorie malnutrition: - Poor intake/lean muscle body loss, nutrition consult Alcoholism: - Debilitating, will give lorazepam PRN, encourage cessation Alcoholic hepatitis/cirrhosis: - Paracentesis today to evaluate for SBP/therapeutic paracentesis, will give albumin before - Pantoprazole daily Disposition : Continue current care Prophylaxis : SCD's Current Facility-Administered Medications: acetaminophen 650 mg Oral Q4H PRN aluminum & magnesium hydroxide-simethicone 30 mL Oral Q4H PRN folic acid with thiamine and pyridoxine IVPB Intravenous Daily lactulose 30 mL Oral 4x Daily levETIRAcetam 500 mg Intravenous 2 times per day LORazepam 1-8 mg Intravenous Q15 Min PRN magnesium sulfate 2 g Intravenous Once ondansetron 4 mg Intravenous Q6H PRN oxyCODONE 5 mg Oral Q6H PRN polyethylene glycol 17 g Oral Daily PRN potassium chloride 20 mEq Oral TID Potassium chloride 10 mEq Intravenous Q1H spironolactone 50 mg Oral BID Total time of approximately 35 minutes was spent with the patient and/or patient's family, and/or on the patient's floor/unit, of which more than 50% was spent counseling and/or coord ination the patient's care as outlined above. Jakub Chun 11/01/2016 9:25 [facility] Portions of this chart may have been created with [email or web address] voice recognition software. Occasi onal wrong-word or sound-alike substitutions may have occurred due to the inherent gallardo itations of voice recognition software. Please read the chart carefully and recognize, using context, where these substitutions have occurred documented in this encounter H&P Notes Francisco Choi DO - 11/01/2016 12:46 AM PDTFormatting of this note might be different f rom the original. [facility] HISTORY & PHYSICAL Patient: Shaila Son : 1970: Age: 46 y.o. MedRec: [id number] PCP: Trixie Rose PA-C Admission date: 10/31/2016 Hospital day #: 0 Physician author: Francisco Choi DO Today: 11/01/2016 CHIEF COMPLAINT: Pt here with concerns for multiple seizures. Family states that she has had three seizures today. Emesis x 5 today. Also c/o increased leg and hand swelling. abd swelling for the last couple weeks ago. Denies fevers. Pt typically drinks a 6 pack per day. Pt had 1 beer yesterday with no other drinking since then. HISTORY OF PRESENT ILLNESS: This is a 46 y.o. female with a history of alcoholism and alcoholic cirrhosis with ascites who still drinks daily and presented to ER with above chief complaints. Patient was evaluat ed earlier this morning at [facility] emergency room where she presented with in creased swelling in her legs and abdomen with associated shortness of breath, difficulty wal alla secondary to swelling and difficulty sleeping due to having leg cramps at night. Keyur khan had been off her diuretics or any other medications for at least couple months. Lab work then showed potassium 3.3, sodium 129, AST 44, ALT 9, ammonia 60, magnesium 1.2 and alcohol level of 232.5. In ER she was treated with IV Lasix and was discharged home with prescripti ons for oral furosemide, spironolactone and lactulose. Patient continues to drink daily, but her last drink was yesterday and none today. After returning home from emergency room patient had a generalized seizure and then she had another one later that afternoon. Patient was brought to ER today and had a witnessed epis ode of generalized seizure in the emergency room as well after which patient was postictal w hen seen by ER attending. Patient's lab work here showed sodium 131 and potassium of 2.9, m agnesium 1.3 and lactic acid of 2.8. Alcohol level was 100. Patient was treated with IV Ativan for tremulousness and seizure-like activity. I was asked to admit patient to hospitalist service for further inpatient evaluation and monica salas. Of note patient was poor historian, hence all history is obtained from patient's sister and ER records. PAST MEDICAL and SURGICAL HISTORY: Past Medical History: Diagnosis Date Cirrhosis, alcoholic (HCC) Hypertension History reviewed. No pertinent surgical history. FAMILY HISTORY: family history is not on file. SOCIAL HISTORY: reports that she has quit smoking. She does not have any smokeless tobacco history on file . She reports that she drinks alcohol. She reports that she does not use drugs. REVIEW OF SYSTEMS: ROS See HPI also positive for shortness of breath, decreased appetite today Questions asked in ROS include: Constitutional: fevers, sweats, chills, change in appetite, fatigue HEENT: nasal congestion, runny nose, sore throat, pain swallowing, neck pain, neck masses Cards: chest pain, dyspnea on exertion, palpitations, lightheadness,dizziness, leg swelling . Resp: shortness of breath, wheezing, chest congestion, cough with/with out phlegm, hemoptys is. GI: nausea, vomitting, diarrhea, constipation, abdominal pain, distention, acid reflux. : dysuria, increased frequency, urgency, difficulty to urinate. Neuro: headaches, change in vision, numbness or tingling, generalized or localized weaknes s. Remainder of other 11 points of review of systems have been reviewed and negative, except per HPI. HOME MEDICATIONS: Current Discharge Medication List CONTINUE these medications which have NOT CHANGED Details famotidine (PEPCID) 40 MG tablet Take 40 mg by mouth Daily. furosemide (LASIX) 40 mg tablet Take 40 mg by mouth 2 times daily. lactulose 10 g/15 mL solution Take 30 g by mouth 4 times daily. magnesium oxide (MAG-OX) 400 mg tablet Take 400 mg by mouth 2 times daily. potassium chloride (MICRO-K) 10 mEq CR capsule Take 20 mEq by mouth Daily. rifAXIMin (XIFAXAN) 550 mg TABS Take 550 mg by mouth 2 times daily. spironolactone (ALDACTONE) 50 mg tablet Take 100 mg by mouth 2 times daily. Will have pharmacyst do medication reconciliation on day shift. ALLERGIES: Allergies Allergen Reactions Ciprofloxacin Anaphylaxis Sulfamethoxazole-Trimethoprim Anaphylaxis Ibuprofen Hives Pt also has liver failure VITAL SIGNS: Temp: 37.4 C (99.4 F), Pulse: 119, Resp: 22, BP: (!) 147/95, SpO2 (!) 21 % on room air at flow rate L/min Temp Min: 37.4 C (99.4 F) Max: 37.4 C (99.4 F) PHYSICAL EXAMINATION: Physical exam: General: Somnolent but arousable, A&O x 1, no apparent distress, affect flat HEENT: Head normocephalic and atraumatic, eyes PERRLA, EOMI. Oral mucosa dry, contusion of the right anterior lateral aspect of her tongue. Neck supple, no masses or lymphadenopathy. Cardiac: tachycardic, regular, no murmurs, gallops or rubs. Resp: CTAB, no wheezing or rales or crackles appreciated on auscultation. Abdominal: hypoactive bowel tones, distended, soft, diffusely tender to palpation, no guard ing or rebound tenderness. No hepatosplenomegally appreciated. Rectal deferred. : jackson catheter in place with large amount of yellow urine in the jackson bag, no abnormal discharge. Extremities: Bilateral +3 pitting edema, L > R, no cyanosis, clubbing. Abrasions of bilater al knees with scab on the right knee. Skin: intact Neuro: non focal exam is overall unremarkable. DIAGNOSTIC STUDIES: Recent Labs Lab 10/31/161956 WBC 5.3 HGB 10.2* HCT 30.2* PLT 90* NEUPCT 81.7 MONPCT 8.6 Recent Labs Lab 10/31/161956 PROTIME 15.1* INR 1.16* Recent Labs Lab 10/31/161956 PTT 23 Recent Labs Lab 10/31/161956 GLU 100 NA 131* K 2.9* CL 100 CO2 20* ANIONGAP 11 BUN 4* CREA 0.59* GFRNONAA >60 CALCIUM 7.2* ALBUMIN 1.5* TOTALPROTEIN 6.4 BILITOT 1.4 ALKPHOS 143* ALT 15 AST 52* No results for input(s): BNP in the last 168 hours. No results for input(s): MG in the last 168 hours. No results for input(s): PHOS in the last 168 hours. Recent Labs Lab 10/31/161956 AMYLASE 149* LIPASE 24 Recent Labs Lab 10/31/162011 AMMONIA 33 No results for input(s): CK, CKMB in the last 168 hours. Invalid input(s): TROPONINI, CKTOTAL No results for input(s): PHART, PO2ART, YYW0NPV, HPJ6HDP, BEART, G1EXQBGY in the last 168 h ours. No results for input(s): SPECSOURCE, PHPOCB, HCO3, TCO2, BEART, BE, TRSO0NVP in the last 16 8 hours. Invalid input(s): UQUXX0DE, EBAM8MV (dot meylab) Xray Results: Ct Head Wo Contrast Result Date: 10/31/2016 CT HEAD WITHOUT CONTRAST CLINICAL INFORMATION: 46-year-old female. Multiple seizures and f alling. Alcohol withdrawal.s COMPARISON: None relevant. PROCEDURE: Axial images were obtaine d through the head without IV contrast. Multiplanar reformations were obtained from the acqu isition data. At least one of the following CT dose optimization techniques were used: Autom ated exposure control; Adjustment of mA and/or kV according to patient size; Use of iterativ e reconstruction technique. FINDINGS: Brain: No intracranial hemorrhage. No midline shift or pathologic mass effect. No cerebral edema, mass lesion, or evidence of acute infarct. Mild diffuse cerebral and cerebellar volume loss, advanced for patient's age. Ventricles and extr a-axial fluid spaces: Normal. Paranasal sinuses and mastoid air cells: Normal. Calvarium and extracranial soft tissues: Normal. Orbits: Imaged portions of the orbits are normal. IMPRES MARILUZ: 1. No acute intracranial process. No evidence of mass effect, acute hemorrhage or def inite acute cortical infarct. 2. Mild diffuse cerebral and cerebellar volume loss, advanced for patient's age. Signed by: Dorothea Alonso Report sent: 10/31/2016 11:59:56 PM I reviewed imaging EKG Results (I reviewed EKG) Sinus tachycardia, vent rate 114 bpm, otherwise normal EKG. ASSESSMENT: Principal Problem: Alcohol withdrawal syndrome with complication (HCC) Active Hospital Problems Diagnosis Alcohol withdrawal syndrome with complication Alcohol withdrawal seizure Acute hyponatremia Acute hypokalemia Bilateral lower extremity edema Alcoholic cirrhosis of liver with ascites Ascites due to alcoholic cirrhosis Resolved Hospital Problems Diagnosis No resolved problems to display. PLAN: Alcohol withdrawal syndrome with complication - patient presents with an apparent acute alcohol withdrawal with 3 episodes of generalized seizures, one of which was witnessed in ER on presentation. - admit to step down unit of ICU on high dose CIWA protocol with Ativan. - folic acid/vitamin B6/thiamine IV daily x 2 more days. - daily multivitamin replacement Alcohol withdrawal seizure - seizure precautions - supportive treatment, no anti-seizure medications are indicated at this time. Will monito r and treat with Ativan as needed. Acute hyponatremia - most likely 2/2 poor oral food intake. - hydrate with NS @ 75 cc/hr - repeat BMP in am. Acute hypokalemia - replace with 40 meq K rider. Check Mg and replace if low. Bilateral lower extremity edema - 2/2 to medication noncompiance in patient with alcoholic liver cirrhosis with ascites. - restart lasix. Magen hoses to bilateral lower exteremities. Alcoholic cirrhosis of liver with ascites - hx of medical noncompliance, patient off her regular medications for at least 2 months. - restart lasix, spironolactone, lactulose. I reviewed and summarized old records. DVT Prophylaxis SCD's while in bed Code Status Full code Medical Decision Maker Patient [facility] Documentation I expect this patient will be hospitalized for greater than 2-midnights and expect the post -hospital plan to be discharge to home or to an adult foster home. Time spent with the patient and sister (of which more than 50% was in counseling and/or event coordinator marketing and sales rdination the patient's care as outlined above) was 60 minutes. Electronically signed by: Francisco Choi DO 11/01/2016 0:47 [facility] Dot phrase reference: VSHOSP (VS in table, last 24 hours) MEYLAB (various labs to pull in) DT (date and time) LABRCNTIP[K:3,Na:3 (last 3 sets of labs using potassium and sodium as examples) HGB HCT PLT INR GLU POCGLU Na K BUN CREA, CALCIUM TROPONINI BNP DIGOXIN Portions of this chart may have been created with [email or web address] voice recognition software. Occasi onal wrong-word or sound-alike substitutions may have occurred due to the inherent gallardo itations of voice recognition software. Please read the chart carefully and recognize, using context, where these substitutions have occurred documented in this encounter Consult Notes Pedrito Solis V, RDN - 11/01/2016 3:26 PM PDTAssociated Order(s): IP CONSULT TO NUTRITION SERVICES; IP CONSULT TO NUTRITION SERVICESFormatting of this note might be different from t he original. NUTRITION THERAPY NOTE Summary: Pt admitted due to seizures at home with hx of alcoholism and cirrhosis. Severe protein calorie malnutrition also diagnosed due to heavy ETOH intake, protein depletion and poor intake. Currently she is eating <30% of a clear liquid diet. Will f/u as condition an d diet advances. Estimated Energy and Protein Needs: (based on 75 kg) Kcal needs: 8493-7301 Kcals/day Protein needs:75-85 grams of protein/day Fluid goal:3438-3773 cc fluid per day Nutrition Plan of Care: Nutrition Diagnosis: Malnutrition related to alcoholism and cirrhosis as evidenced by high daily ETOH intake Interventions: 1. F/U as diet can advance 2. Nutritional supplements tid Oral Nutrition Promotion: rest periods promoted Nutrition Goals: 1. Adequate oral intake to meet assessed energy and protein needs 2. Good appetite, cessation of etoh Monitor: 1. Intake 2. Nutrition related changes F/u in 1 days. Available as needed, ext [phone] Assessment: Diet Order: For your reference, current, active order is: Diet clear liquid; Effective Now Labs: Recent Labs 11/01/16 1305 11/01/16 0413 10/31/16200610/31/161956 NA 129* 134* -- 131* K 3.1* 2.8* -- 2.9* CL 99 101 -- 100 BUN 4* 4* -- 4* CREA 0.51* 0.53* -- 0.59* ALBUMIN -- -- -- 1.5* MG 2.0 1.2* 1.3* -- PHOS -- 3.4 -- -- Anthropometrics: Height: 170.2 cm (5' 7") Weight: 74.7 kg (164 lb 10.9 oz) Wt Readings from Last 3 Encounters: 11/01/16 74.7 kg (164 lb 10.9 oz) 09/04/15 73.6 kg (162 lb 4.1 oz) 03/17/15 63.5 kg (140 lb) Body mass index is 25.79 kg/m. Electronically Signed by: PEDRITO SOLIS RDN 11/01/2016 15:26 docu mented in this encounter ED Notes Morro Rodriguez MD - 10/31/2016 9:58 PM PDTED Course Continued: I assumed this patient's care at change of shift. She is in alcohol withdrawal. She had a lcohol withdrawal seizures. He was treated with lorazepam. She continues to be in withdraw al symptoms. Additional lorazepam was ordered. She is very unsteady and not safe to get up to urinate. She has been having urinary frequency. A Jackson catheter was placed for patien t safety concerns. Head CT was done: IMPRESSION: 1. No acute intracranial process. No evidence of mass effect, acute hemorrhage or definite acute cortical infarct. 2. Mild diffuse cerebral and cerebellar volume loss, advanced for patient's age. She has been stable here in the ER. Morro Rodriguez MD 11/01/16 0640 Danish Kunz MD - 10/31/2016 7:[address] [facility] Shaila Son Emergency Department Encounter Note [address] [place] [address] PCP:Trixie Rose PA-C [phone] CHIEF COMPLAINT: Chief Complaint Patient presents with Seizure (Adult - Alcoholic) ED Room: 421/421-[facility] Shaila Son is a 46 y.o. female who presents to the Emergency Department presents w [facility] family after having 2 seizures in the last 24 hours. Is a patient with a history of alc oholic cirrhosis with long-term alcohol abuse who is having only one drink in the last 24 ho urs and most likely represents withdrawal seizures. She was seen and evaluated and the facility prior to arrival today. She was prescribed furosemide, Aldactone, and potassium chloride. No recent travel outside the [place]. She has been drinking for many years with by report a family member at bedside and diagnose s of alcoholic cirrhosis more than 2 years ago but has persisted her alcohol intake. No recent falls or injuries. She is confused and is postictal PAST MEDICAL & SURGICAL HISTORY Past Medical History: Diagnosis Date Alcoholism (HCC) Anemia Cirrhosis, alcoholic (HCC) Hypertension Seizures (HCC) Past Surgical History: Procedure Laterality Date Back fusion 2015 CURRENT MEDICATIONS Current Discharge Medication List CONTINUE these medications which have NOT CHANGED Details famotidine (PEPCID) 40 MG tablet Take 40 mg by mouth Daily. furosemide (LASIX) 40 mg tablet Take 40 mg by mouth Daily. magnesium oxide (MAG-OX) 400 mg tablet Take 400 mg by mouth 2 times daily. polyethylene glycol (MIRALAX) packet Take 17 g by mouth Daily as needed (constipation). potassium chloride (MICRO-K) 10 mEq CR capsule Take 10 mEq by mouth Daily. spironolactone (ALDACTONE) 25 mg tablet Take 50 mg by mouth 2 times daily. ALLERGIES Allergies Allergen Reactions Ciprofloxacin Anaphylaxis Sulfamethoxazole-Trimethoprim Anaphylaxis Ibuprofen Hives Pt also has liver failure FAMILY AND SOCIAL HISTORY History reviewed. No pertinent family history. Social History Social History Marital status: Single Spouse name: N/A Number of children: N/A Years of education: N/A Social History Main Topics Smoking status: Former Smoker Smokeless tobacco: None Alcohol use Yes Comment: alcoholism, currently drinks 6 cans of beer daily Drug use: No Sexual activity: Not Asked Other Topics Concern None Social History Narrative None REVIEW OF SYSTEMS Based on the patient's clinical presentation, being postictal after recent seizure in our w aiting room, and prior confusion with seizures previously today her family member at bedside provides the rest of the review systems. The patient is confused and postictal and provide s no relevant history to her HPI. PHYSICAL EXAM VITAL SIGNS: (first vital signs):Temp: 37.4 C (99.4 F) Pulse: 122 Resp: 20 SpO2: 95 % B P: (!) 165/101 General: Her eyes are open but she is confused and appears to be postictal there is contusi on on the right anterior lateral aspect of her tongue Eyes: Normal inspection without jaundice ENT: Ears normal Nose normal Pharynx normal Neck: Normal inspection with no lymphadenopathy With JVD Cardiovascular: Tachycardic rate and rhythm, no extra sounds No murmurs rubs or gallops Focal PMI Respiratory: She has coarse breath sounds bilaterally slightly tachypnea with rales Normal excursion No retractions Abdomen: Distended with a positive fluid wave with a rash right upper quadrant which is ban dlike along the costal margin and prominence of the superficial abdominal veins without any obvious caput medusa and no obvious murmur or bruit in the right costal margin. She has a p ositive fluid wave. Back: Normal inspection Without tenderness or deformity Skin: Color normal Warm and dry Extremities: Bilaterally edematous with induration edema and +3 pitting edema from her knee s down Neuro: She is awake and has her eyes open but she is not answering questions she seems to be somewhat confused and is protecting her airway. There is no obvious tremors. She is abl e to move her arms and legs spontaneously but is not participating with my exam. LABS Results for orders placed or performed during the hospital encounter of 10/31/16 Culture, Blood Result Value Ref Range Culture No growth: Monitored continually by instrument for 5 days Culture, Blood Result Value Ref Range Culture No growth: Monitored continually by instrument for 5 days Culture, MRSA Result Value Ref Range Culture Negative for MRSA by chromogenic agar method Culture, Body Fluid, Aerobe Result Value Ref Range Culture No growth to date Gram Stain Result 2+ White Blood Cells Gram Stain Result 3+ Red blood cells Gram Stain Result No organisms seen Culture, Body Fluid, Anaerobe Result Value Ref Range Culture No anaerobes isolated to date. CBC with Differential Result Value Ref Range [...] PH UA 6.0 5.0 - 8.0 Specific Clawson 1.014 1.001 - 1.030 PROTEIN UA >=500 [...] PH UA 6.0 5.0 - 8.0 Specific Clawson 1.005 1.001 - 1.030 PROTEIN UA 30 [...] BF % Lymphocytes 18 % BF % Macro/Lamar 68 % BF Total cells counted 100 [...] can be found in Results Review . STUDIES Recent Results (from the past 360 hour(s)) XR Chest AP Portable Narrative EXAM: XR CHEST AP PORTABLE dated 10/31/2016 8:26 PM HISTORY: SEIZURE (ADULT-ALCOHOLIC) Comparison: September 01, 2015 TECHNIQUE: A single portable view of the chest. FINDINGS: Chronic elevation of the right hemidiaphragm. Mild prominence of the central pulmonary vessels. No acute airspace disease. No pneumothorax. No large pleural effusions. There is moderate cardiomegaly. There are no visible acute osseous abnormalities. Fusion related changes in the lumbar spine. IMPRESSION - Cardiomegaly and prominent pulmonary vessels suggest underlying pulmonary venous congestion. No acute airspace disease. Dictated and Signed by: Hakeem Barroso MD Electronically signed: 11/01/2016 8:[address] Head wo Contrast Narrative TECHNIQUE: Noncontrast axial CT imaging was obtained through the brain with coronal and sagittal reformats. CLINICAL INFORMATION: SEIZURE (ADULT-ALCOHOLIC) COMPARISON: None available. FINDINGS: BONY STRUCTURES: Paranasal sinuses and mastoid air cells: Clear. Calvarium and skull base: No osseous lesion. No acute fracture. Sella: No bony expansion. EXTRACRANIAL SOFT TISSUES: Orbits: Normal. Scalp: Normal. INTRACRANIAL STRUCTURES: Ventricular system: Normal for age. Extra-axial spaces: Mild to moderate diffuse prominence without abnormal fluid collection. Basilar cisterns are preserved. Intracranial hemorrhage: None. Intracranial mass: None. Midline shift: None. Brain parenchyma: Mild ill-defined areas of hypoattenuation are noted within the periventricular and subcortical white matter. Preservation of the puckett-white matter differentiation. Brainstem: Normal. VASCULAR SYSTEM: No dense MCA. IMPRESSION - No acute intracranial abnormality. Mild to moderate diffuse parenchymal atrophy and mild white matter changes, advanced for patient's age. Dictated and Signed by: Andres Mancera MD Electronically signed: 11/01/2016 11:28 AM XR Chest AP Portable Narrative XR CHEST AP PORTABLE 11/01/2016 2:18 PM HISTORY: picc line tip placement. COMPARISON: Multiple priors. Findings: There is interval placement of a right PICC line with tip in the right atrium about 4.0 cm below the cavoatrial junction. The heart is enlarged. Aorta is normal. Mediastinum is unremarkable. There is prominence of the pulmonary vasculature with cephalization. There is moderate atelectasis in the right lung base. Evaluation for gas below the right hemidiaphragm is limited due to the presence of the atelectasis. Moderate elevation of the right hemidiaphragm is seen. There is lumbar fusion hardware. IMPRESSION - Interval placement of right PICC line with tip in right atrium about 4.0 cm below the cavoatrial junction. Moderate atelectasis in right lung base. Evaluation for gas below the right hemidiaphragm is limited due to the presence of the atelectasis. A follow-up chest x-ray is recommended for further evaluation. Prominence of central pulmonary vasculature with cephalization that can be seen with fluid overload. Cardiomegaly. These findings were called to the covering nurse. Dictated and Signed by: Austin Crane MD Electronically signed: 11/01/2016 2:35 PM US Guided Paracentesis Narrative EXAM: Ultrasound guided paracentesis. CLINICAL INFORMATION: Possible SBP, severe ascites COMPARISON: 09/03/2015 and sonogram PROCEDURE: Informed consent was obtained and a final timeout was performed. Preliminary ultrasound showed a peritoneal fluid collection. The skin was marked and sterilely prepped and draped. 4 mm Lidocaine 1% infiltrated into the subcutaneous soft tissues. A small skin incision was made. 8 Gibraltarian paracentesis needle and sheath was advanced under ultrasound guidance into the peritoneal fluid. The needle was removed. The catheter was fixed to suction. Aspirate: 5000 ml of cloudy serous fluid. 1000 mL of the aspirated fluid was sent to the laboratory for further assessment. The catheter was removed and a sterile dressing was place. The patient tolerated procedure well without complication. FINDINGS: Moderate ascites. IMPRESSION - Technically successful ultrasound guided paracentesis. Dictated and Signed by: Andres Mancera MD Electronically signed: 11/01/2016 4:19 PM XR Chest AP Portable Narrative XR CHEST AP PORTABLE 11/01/2016 5:04 PM HISTORY: PICC tip placement AFTER pulled back 4 cm. COMPARISON: Multiple priors. Findings: There is a right PICC line with tip in the upper SVC with tip about 3.2 cm above the cavoatrial junction. The heart is enlarged. Aorta is normal. Mediastinum is unremarkable. There is prominence of the pulmonary vasculature with cephalization. There is improved mild atelectasis in the right lung base. Stable moderate atelectasis is in the left perihilar region. Moderate elevation of the right hemidiaphragm is seen. There is lumbar fusion hardware. IMPRESSION - Right PICC line with tip in in the upper SVC about 3.2 cm above the cavoatrial junction. Improved mild atelectasis in right lung base, stable moderate atelectasis in left perihilar region. Prominence of central pulmonary vasculature with cephalization that can be seen with fluid overload. Cardiomegaly. Dictated and Signed by: Austin Crane MD Electronically signed: 11/01/2016 5:13 PM XR Chest AP Portable Narrative EXAM: XR CHEST AP PORTABLE dated 11/02/2016 6:03 AM HISTORY: dyspnea, tachypnea Comparison: Chest x-rays dating to October 31, 2016 TECHNIQUE: A single portable view of the chest. FINDINGS: The right approach PICC line catheter is directed into the internal jugular vein. Lung volumes are low bilaterally. This results in bronchovascular crowding. It also accentuates bilateral lower lobe parenchymal opacities. Stable cardiac and mediastinal contours. IMPRESSION - The right approach PICC line catheter is directed into the right internal jugular vein. Persistent bilateral airspace opacities. The case was discussed with Dr. Jakub Chun at 8:30 on the morning of the exam. Dictated and Signed by: Hakeem aBrroso MD Electronically signed: 11/02/2016 8:34 AM XR Chest AP Portable Narrative EXAM: XR CHEST AP PORTABLE dated 11/03/2016 10:58 AM HISTORY: PICC tip position Comparison: None. TECHNIQUE: A single portable view of the chest. FINDINGS: The PICC line has been repositioned. The catheter tip is now directed towards the heart. The tip is in the mid superior vena cava. Bilateral parenchymal opacities are persistent and not significantly changed. The cardiac and mediastinal contours are stable. No pneumothorax. The osseous structures are stable. IMPRESSION - Right PICC line tip now within the mid superior vena cava. Dictated and Signed by: Hakeem Barroso MD Electronically signed: 11/03/2016 11:21 AM 20:39 Sinus tachycardia at 114 Normal SD and VALENTIN Normal QRS and Newton Normal QT and QTc Normal ST/T without acute ischemic changes Very similar morphology without wandering baseline in comparison to an electrocardiogram da magen September 01, 2015 with the exact same rate of 114 bpm. Interpreted by Danish George DO. ED COURSE & MEDICAL DECISION MAKING Pertinent Labs & Imaging studies were reviewed along with EMS notes and penitentiary record s if applicable. (See chart for details) Medications and Allergy list reviewed. Nurses note and old records were reviewed. 20:15 patient presents with family after going through alcohol withdrawal seizures accordin g to the family and they feel like she is getting worse. She was recently seen and evaluate d at an outside facility and has had 2 seizures since her disposition from the other facilit y. The patient presents with altered sensorium with potential etiologies being delirium reinaldo mens, hepatic encephalopathy, postictal, metabolic derangement, or acute alcohol intoxicatio n. 21:04 she is answering to her name and knows where she is now. 21:30 due to the patients ETOH withdrawal seizures, which are preexisting and recurrent, nereida jacobson will require admission for further treatment and care. She recalls that she has had seizur es before as well. I have discussed the patients clinical presentation with the inspector insulation hosp italist for continuity of care and concerns for her risk of persistent recurrent seizures wi thout management with an appropriate hospital setting and monitoring. She has metabolic dera ngement, ascites with her alcoholic cirrhosis, hypokalemia and bilateral pedal edema. Last Set of Vital Signs: Temp: 37.2 C (99 F) Pulse: 109 Resp: 20 SpO2: 97 % BP: (!) 146 /98 Patient Vitals for the past 24 hrs: BP Temp Temp src Pulse Resp SpO2 10/31/162111 (!) 161/127 - - 109 - 95 % 10/31/162056 (!) 161/119 - - 111 - 96 % 10/31/162049 (!) 148/110 - - 117 20 96 % 10/31/162041 (!) 148/110 - - 107 - 95 % 10/31/162025 (!) 175/133 - - 115 25 96 % 10/31/162016 (!) 171/99 - - 118 20 99 % 10/31/161958 (!) 146/97 - - 120 26 97 % 10/31/161956 - - - 118 17 96 % 10/31/161941 144/90 - - 125 19 95 % 10/31/161930 (!) 165/101 37.4 C (99.4 F) Axillary 122 20 95 % Medications acetaminophen (TYLENOL) tablet 650 mg (650 mg Oral Given 11/03/16 184) oxyCODONE (ROXICODONE) tablet 5 mg (5 mg Oral Given 11/05/16 0634) polyethylene glycol (MIRALAX) powder 17 g (not administered) ondansetron (ZOFRAN) injection 4 mg (not administered) aluminum & magnesium hydroxide-simethicone (MAALOX PLUS REGULAR STRENGTH) 200-200-20 mg/5 m L suspension 30 mL (not administered) pantoprazole (PROTONIX) DR tablet 40 mg (40 mg Oral Given 11/05/16 0631) albuterol 2.5 mg/3 mL nebulizer solution 2.5 mg (2.5 mg Nebulization Given 11/04/16 1905) albuterol-ipratropium (DUONEB) 2.5-0.5 mg/3 mL nebulizer solution 3 mL (3 mLs Nebulization Given 11/05/16 0903) LORazepam (ATIVAN) tablet 1-4 mg ( Oral See Alternative 11/04/161711) Or LORazepam (ATIVAN) injection 0.5-4 mg (0.5 mg Intravenous Given 11/04/161711) folic acid 1 mg, thiamine (VITAMIN B-1) 100 mg, pyridOXINE (VITAMIN B-6) 100 mg in sodium c hloride 0.9% 100 mL IVPB ( Intravenous New Bag 11/05/16832) metoprolol tartrate (LOPRESSOR) injection 2.5 mg (2.5 mg Intravenous Given 11/03/162138) spironolactone (ALDACTONE) tablet 50 mg (50 mg Oral Given 11/05/16833) lactulose liquid 15 mL (15 mLs Oral Given 11/05/1635) furosemide (LASIX) tablet 20 mg (20 mg Oral Given 11/05/16832) levETIRAcetam (KEPPRA) tablet 500 mg (500 mg Oral Given 11/05/16833) magnesium sulfate 4 g/100 mL IVPB 4 g (4 g Intravenous New Bag 11/05/162) LORazepam (ATIVAN) injection 1 mg (1 mg Intravenous Given 10/31/162019) bumetanide (BUMEX) injection 2 mg (2 mg Intravenous Given 10/31/162104) piperacillin-tazobactam (ZOSYN) 3.375 g in sodium chloride 0.9% 100 mL IVPB (0 g Intravenou s Stopped 10/31/162146) LORazepam (ATIVAN) injection 2 mg (2 mg Intravenous Given 10/31/162104) sodium chloride 0.45% (1/2 NS) 1,000 mL with potassium chloride 40 mEq, magnesium sulfate 2 g infusion ( Intravenous New Bag 10/31/162146) folic acid 1 mg, thiamine (VITAMIN B-1) 100 mg, pyridOXINE (VITAMIN B-6) 100 mg in sodium c hloride 0.9% 100 mL IVPB ( Intravenous New Bag 11/02/16 0910) magnesium sulfate 2 g/50 mL IVPB 2 g (2 g Intravenous New Bag 11/01/16 0609) Followed by magnesium sulfate 2 g/50 mL IVPB 2 g (2 g Intravenous New Bag 11/01/16 0833) potassium chloride 10 mEq in sterile water 100 mL IVPB (10 mEq Intravenous New Bag 11/01/16 1101) albumin 25% IVPB 25 g (25 g Intravenous New Bag 11/01/16 1245) potassium chloride 40 mEq in sodium chloride 0.45% 500 mL IVPB (40 mEq Intravenous New Bag 11/01/16 1543) magnesium sulfate 2 g/50 mL IVPB 2 g (0 g Intravenous Stopped 11/02/16 0310) furosemide (LASIX) injection 40 mg (40 mg Intravenous Given 11/02/16 0103) furosemide (LASIX) injection 40 mg (40 mg Intravenous Given 11/02/16 0810) magnesium sulfate 2 g/50 mL IVPB 2 g (2 g Intravenous New Bag 11/02/16 1707) magnesium sulfate 2 g/50 mL IVPB 2 g (2 g Intravenous New Bag 11/04/16 0626) potassium chloride (K-DUR) ER tablet 20 mEq (20 mEq Oral Given 11/05/16 0834) FINAL IMPRESSION 1. Hypertensive urgency 2. Altered sensorium 3. Hypokalemia 4. Recurrent seizures (HCC) 5. Delirium tremens (HCC) 6. Alcohol withdrawal seizure, with unspecified complication (HCC) 7. Alcohol withdrawal syndrome with complication, with unspecified complication (HCC) 8. Acute hyponatremia 9. Alcoholic cirrhosis of liver with ascites (HCC) 10. Ascites due to alcoholic cirrhosis (HCC) 11. Acute hypokalemia 12. Bilateral lower extremity edema 13. Hepatic encephalopathy (HCC) Current Discharge Medication List Electronically signed by: Danish George MD 11/05/2016 11:17 Danish George. This document has been prepared with a voice recognition system. The possibility of "sound alike" online marketing strategist errors, addition and/or deletions may occur. If there is any question p lease contact the author of the document. Danish George MD 11/05/16 1117 documented in this encounter Miscellaneous Notes Plan of Care - Zuleika Antunez COTA - 11/07/2016 3:04 PM PDT Problem: Patient Care Overview (Adult) Goal: Care Team Goals & Evaluation PROBLEM-RELATED GOALS: Pt will have minimal agitation, anxiety and free of seizure by 11/07/16 Pt will have safe paracentesis as evidence by within normal VS, O2 sats >92%, and minimal p ain by 11/07/16 Pt will be free of fall by 11/07/16 4 Shaila will have breath sounds consistent with baseline function throughout stay and revers e airway bronchospasm when indicated. Reevaluate goal by 11/04/16. 5. Shaila will be able to ambulate mod-I with appropriate AD by 11/09/16. STRATEGY TO ACHIEVE GOALS: Assess neuro status using CIWA protocol, and administer ativan as needed. Assist with Paracentesis maintaining stable BP, pulse oximetry. Assess and administer pain medication as needed. Reposition every 2 hrs, maintain padded side rails x 4 at all times and reoriented pt frequ ently to prevent fall. Administer respiratory medications as ordered and adjust with use of respiratory protocols. Provide skilled PT interventions and training. RESTRAINT-RELATED GOALS: STRATEGIES TO ACHIEVE RESTRAINT GOALS: Outcome: Improving Occupational Therapy Plan of Care Treatment Note Summary: Pt getting ready to d/c today and per pt her neighbor friend in room will be driv ing her home today. Pt also reported she lives at home w/ her aunt and aunt and neighbor fri end in room will be assisting pt as needed at home. Pt completed toilet t/f/toileting tasks w/ supervision cues and doffed/donned, tied shoes w/ supervision. Recommended pt procure an extended tub bench to sit for tub showers at home to keep her safe and neighbor friend repor magen he will get one on loan in [place]. This therapsit suggested pt wear magen hose for dri ve home and assisted w/ donning magen hose. Pt will d/c home this shortly w/ neighbor friend. retail training manager notified this therapist recommended extended tub bench for safety w/ tub shower s at home and pt's neighbor friend will be procuring one for pt. Occupational Therapy Discharge Recommendations are: Recommended discharge disposition: home with assist Post discharge occupational therapy recommendation: family involved/supportive, will benef it from structured setting Equipment Recommendations: Planned Interventions:ADL retraining, IADL retraining, cognitive retraining, fine motor event coordinator marketing and sales rdination training Recommended Frequency: 3 times/wk Patient Status/Goals: Reflects last filed data and may be from multiple contributors. ADLs Pt was able to abigail/doff socks and shoes w/o phsical assist and w/o A/D. This therapist carmine lied magen hose on BLE Pt able to cross each leg over knee and doffed socks w/ SBA and therapist applied magen hose on BLE and pt donned shoes/tied shoe laces w/o physical assist LB Dressing, Level of Maverick: stand by assist Assistive Device: none LB Dressing Assess/Train, Position: sitting LB Dressing Assess/Train, Impairments: decreased flexibility, pain, motor control impaired, coordination impaired, impaired balance Functional Endurance good Transfers Completed toilet t/f w/ supervison/cues using grab bar and dry run step in shower t/f w/ laguerre pervision/cues using grab bar Sit-Stand, Level of Maverick: stand by assist, verbal cues required Stand-Sit, Level of Maverick: supervised [id number], Assistive Device: 2 wheeled walker (FWW) Toilet, Level of Maverick: supervised, verbal cues required Toilet, Assistive Device: 2 wheeled walker (FWW), grab bars Walk-in shower, Level of Maverick: supervised, verbal cues required Walk-in shower, Assistive Device: 2 wheeled walker (FWW), grab bars Impairments: decreased flexibility, strength decreased, impaired balance LB Dressing Goal Flowsheet Row Most Recent Value STG Status progressing at 11/07/2016 1400 STG Maverick Level modified independent at 11/03/2016 1638 STG Adaptive Equipment none at 11/03/2016 1638 Toilet Transfer Goal Flowsheet Row Most Recent Value STG Status progressing at 11/07/2016 1400 STG Maverick Level modified independent at 11/03/2016 1638 STG Assistive Device toilet safety frame at 11/03/2016 1638 Tub/Shower Transfer Goal Flowsheet Row Most Recent Value Tub/Shower Type tub/shower combo at 11/03/2016 1638 STG Status not addressed at 11/07/2016 1400 STG Maverick Level modified independent at 11/03/2016 1638 Functional Cognition Goal Flowsheet Row Most Recent Value STG Status progressing at 11/07/2016 1400 STG pt able to attend to and fully participate in self care ADL tasks, seated recreational activities and conversations consistently, 4/5 times. at 11/03/2016 1638 lan of Care - Ashlyn Ocampo - 11/07/2016 2:02 PM PDTDischarge Planning: This RADIO TELEVISION ANNOUNCER spoke with Shaila at her bedside. She will discharge home no needs. Her friend is he re to transport her. Home Health referral faxed for follow up phone call. Electronically signed by: Ashlyn Mack 11/07/2016 14:05 lan of Care - Nisa Lopez RN - 11/07/2016 7:43 AM PDTProblem: Patient Care Overview (Adult) Goal: Care Team Goals & Evaluation PROBLEM-RELATED GOALS: Pt will have minimal agitation, anxiety and free of seizure by 11/07/16 Pt will have safe paracentesis as evidence by within normal VS, O2 sats >92%, and minimal p ain by 11/07/16 Pt will be free of fall by 11/07/16 4 Shaila will have breath sounds consistent with baseline function throughout stay and revers e airway bronchospasm when indicated. Reevaluate goal by 11/04/16. 5. Shaila will be able to ambulate mod-I with appropriate AD by 11/09/16. STRATEGY TO ACHIEVE GOALS: Assess neuro status using CIWA protocol, and administer ativan as needed. Assist with Paracentesis maintaining stable BP, pulse oximetry. Assess and administer pain medication as needed. Reposition every 2 hrs, maintain padded side rails x 4 at all times and reoriented pt frequ ently to prevent fall. Administer respiratory medications as ordered and adjust with use of respiratory protocols. Provide skilled PT interventions and training. RESTRAINT-RELATED GOALS: STRATEGIES TO ACHIEVE RESTRAINT GOALS: Outcome: Improving Goal Evaluation: Oxycodone given for c/o left shoulder pain at hs. Sleeping t/o the night in between cares. Remained free from falls. 1 person assist with FWW. Does not always call appropriately. Bed alarm on. Up to toilet voiding adequate amounts of clear yellow urine. lan of [facility] - Leah Cole RRT - 11/07/2016 3:39 AM PDTProblem: Patient Care Overview (Adult) Goal: Care Team Goals & Evaluation PROBLEM-RELATED GOALS: Pt will have minimal agitation, anxiety and free of seizure by 11/07/16 Pt will have safe paracentesis as evidence by within normal VS, O2 sats >92%, and minimal p ain by 11/07/16 Pt will be free of fall by 11/07/16 4 Shaila will have breath sounds consistent with baseline function throughout stay and revers e airway bronchospasm when indicated. Reevaluate goal by 11/04/16. 5. Shaila will be able to ambulate mod-I with appropriate AD by 11/09/16. STRATEGY TO ACHIEVE GOALS: Assess neuro status using CIWA protocol, and administer ativan as needed. Assist with Paracentesis maintaining stable BP, pulse oximetry. Assess and administer pain medication as needed. Reposition every 2 hrs, maintain padded side rails x 4 at all times and reoriented pt frequ ently to prevent fall. Administer respiratory medications as ordered and adjust with use of respiratory protocols. Provide skilled PT interventions and training. RESTRAINT-RELATED GOALS: STRATEGIES TO ACHIEVE RESTRAINT GOALS: Goal Evaluation: Shaila is on room air with SPO2 94-99%. Breathing treatments given as scheduled. Breath so unds appear clear. lan of [facility] - Erika Wadsworth RN - 11/06/2016 6:38 PM PDTProblem: Discharge Planning Goal: Patient will be discharged in a safe manner Outcome: Unchanged I visited with Shaila this afternoon regarding discharge planning. She said that she wants t o go back to her Aunt's home when she discharges to help take care of her Aunt. I talked to her about the need for her to fully recover before she take care of someone else so she montes de oca sn't end up back at the hospital but she said that she just wanted to go back home. 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 I received a call from Amena from [facility] this afternoon and she was asking about an up date. She said that she might be coming over tomorrow and might visit with Shaila as she has a soft spot for her. CM please continue to follow this discharge. Electronically signed by: Erika Willis RN 11/06/2016 18:38 lan of Care - Carlos Haynes, OT - 11/06/2016 6:23 PM PDT Problem: Patient Care Overview (Adult) Goal: Care Team Goals & Evaluation PROBLEM-RELATED GOALS: Pt will have minimal agitation, anxiety and free of seizure by 11/07/16 Pt will have safe paracentesis as evidence by within normal VS, O2 sats >92%, and minimal p ain by 11/07/16 Pt will be free of fall by 11/07/16 4 Shaila will have breath sounds consistent with baseline function throughout stay and revers e airway bronchospasm when indicated. Reevaluate goal by 11/04/16. 5. Shaila will be able to ambulate mod-I with appropriate AD by 11/09/16. STRATEGY TO ACHIEVE GOALS: Assess neuro status using CIWA protocol, and administer ativan as needed. Assist with Paracentesis maintaining stable BP, pulse oximetry. Assess and administer pain medication as needed. Reposition every 2 hrs, maintain padded side rails x 4 at all times and reoriented pt frequ ently to prevent fall. Administer respiratory medications as ordered and adjust with use of respiratory protocols. Provide skilled PT interventions and training. RESTRAINT-RELATED GOALS: STRATEGIES TO ACHIEVE RESTRAINT GOALS: Occupational Therapy Plan of Care Initial Evaluation Note Summary: Pt seen for cognitive evaluation (SLUMS) and visual perception and fine motor tas k of copying block patterns. Pt scored in the dementia range on the SLUMS, attributed to rachael oing withdrawal sxs including cognitive impairment. Attention appears to be a primary factor , as pt has difficulty tracking the [facility] final attention portion of the test. Pt mildly distracti ble and fidgeting throughout tx. Pt did well with block pattern copying, and completed three medium difficulty patterns without errors. Pt alert, attentive, and able to participate ful lly in actvities today. Occupational Therapy Discharge Recommendations are: Recommended discharge disposition: home with assist Post discharge occupational therapy recommendation: family involved/supportive, will benef it from structured setting Equipment Recommendations: Planned Interventions:ADL retraining, IADL retraining, cognitive retraining, fine motor event coordinator marketing and sales rdination training Recommended Frequency: 3 times/wk Patient Status/Goals: Reflects last filed data and may be from multiple contributors. ADLs Pt performing grooming and toileting with supervision, per BOUFFANT CURTAIN MACHINE TENDER report. Cognitive Administered SLUMS cognitive test, and pt scored in dementia range, 17/30. However, pt is m uch improved from previous OT treatment. She is able to track activity and instructions, tho ugh speech continues to be quiet. Cognitive Tests Standardized Tests: [facility] Mental Status ([facility]): Shaila scored 17/30 on the SLUMS, indicating she currently has a severe level of cognitive di sorder. Interpretation: - Patients with High School Education 27-30 = normal 21-26 = mild neurocognitive disorder 1-20 = dementia - Patients with less than High School Education 25-30 = normal 20-24 = mild neurocognitive disorder 1-19 = dementia For more information, please visit: [email or web address] LB Dressing Goal Flowsheet Row Most Recent Value STG Status new at 11/03/2016 1638 STG Maverick Level modified independent at 11/03/2016 1638 STG Adaptive Equipment none at 11/03/2016 1638 Toilet Transfer Goal Flowsheet Row Most Recent Value STG Status new at 11/03/2016 1638 STG Maverick Level modified independent at 11/03/2016 1638 STG Assistive Device toilet safety frame at 11/03/2016 1638 Tub/Shower Transfer Goal Flowsheet Row Most Recent Value Tub/Shower Type tub/shower combo at 11/03/2016 1638 STG Status new at 11/03/2016 1638 STG Maverick Level modified independent at 11/03/2016 1638 Functional Cognition Goal Flowsheet Row Most Recent Value STG Status new at 11/03/2016 1638 STG pt able to attend to and fully participate in self care ADL tasks, seated recreational activities and conversations consistently, 4/5 times. at 11/03/2016 1638 Electronically signed by: Carlos Gonsales OT, 11/06/2016 18:19 lan of [facility] - Alicia Baker RN - 11/06/2016 6:10 PM PDTProblem: Discharge Planning Goal: Patient will be discharged in a safe manner Outcome: Unchanged This CM called patient's home and spoke with Anette, patient's sister, requesting her cell # which is [phone]. Per patient, Anette is taking cleaning at home and taking care of a s ick family member there.Electronically signed by: Alicia Baker RN 11/06/2016 18:10 lan of [facility] - Kenzie Romero RRT - 11/06/2016 5:39 PM PDTProblem: Patient Care Overview (Adult) Goal: Care Team Goals & Evaluation PROBLEM-RELATED GOALS: Pt will have minimal agitation, anxiety and free of seizure by 11/07/16 Pt will have safe paracentesis as evidence by within normal VS, O2 sats >92%, and minimal p ain by 11/07/16 Pt will be free of fall by 11/07/16 4 Shaila will have breath sounds consistent with baseline function throughout stay and revers e airway bronchospasm when indicated. Reevaluate goal by 11/04/16. 5. Shaila will be able to ambulate mod-I with appropriate AD by 11/09/16. STRATEGY TO ACHIEVE GOALS: Assess neuro status using CIWA protocol, and administer ativan as needed. Assist with Paracentesis maintaining stable BP, pulse oximetry. Assess and administer pain medication as needed. Reposition every 2 hrs, maintain padded side rails x 4 at all times and reoriented pt frequ ently to prevent fall. Administer respiratory medications as ordered and adjust with use of respiratory protocols. Provide skilled PT interventions and training. RESTRAINT-RELATED GOALS: STRATEGIES TO ACHIEVE RESTRAINT GOALS: Outcome: Improving Goal Evaluation: SpO2 98 % on room air Treatments given as ordered. No PRN nebs given breath sounds are danette ar. lan of Teresa Duran, JAIME - 11/06/2016 4:44 PM PDTProblem: Patient Care Overview (Adult) Goal: Care Team Goals & Evaluation PROBLEM-RELATED GOALS: Pt will have minimal agitation, anxiety and free of seizure by 11/07/16 Pt will have safe paracentesis as evidence by within normal VS, O2 sats >92%, and minimal p ain by 11/07/16 Pt will be free of fall by 11/07/16 4 Shaila will have breath sounds consistent with baseline function throughout stay and revers e airway bronchospasm when indicated. Reevaluate goal by 11/04/16. 5. Shaila will be able to ambulate mod-I with appropriate AD by 11/09/16. STRATEGY TO ACHIEVE GOALS: Assess neuro status using CIWA protocol, and administer ativan as needed. Assist with Paracentesis maintaining stable BP, pulse oximetry. Assess and administer pain medication as needed. Reposition every 2 hrs, maintain padded side rails x 4 at all times and reoriented pt frequ ently to prevent fall. Administer respiratory medications as ordered and adjust with use of respiratory protocols. Provide skilled PT interventions and training. RESTRAINT-RELATED GOALS: STRATEGIES TO ACHIEVE RESTRAINT GOALS: Outcome: Improving Goal Evaluation: Shaila has tolerated meals well without difficulty, ambulated around the unit with staff, de nies any needed for pain medication, voiding without difficulty, one bm today, bed alarm in place, and seizure pads in place, CIWA all less than 10 calls appropriately and makes needs known. lan of Care - Lul Hermosillo, HOT PRESS OPERATOR - 11/06/2016 2:15 PM PDTFormatting of this note might be different fr om the original. Problem: Patient Care Overview (Adult) Goal: Care Team Goals & Evaluation PROBLEM-RELATED GOALS: Pt will have minimal agitation, anxiety and free of seizure by 11/07/16 Pt will have safe paracentesis as evidence by within normal VS, O2 sats >92%, and minimal p ain by 11/07/16 Pt will be free of fall by 11/07/16 4 Shaila will have breath sounds consistent with baseline function throughout stay and revers e airway bronchospasm when indicated. Reevaluate goal by 11/04/16. 5. Shaila will be able to ambulate mod-I with appropriate AD by 11/09/16. STRATEGY TO ACHIEVE GOALS: Assess neuro status using CIWA protocol, and administer ativan as needed. Assist with Paracentesis maintaining stable BP, pulse oximetry. Assess and administer pain medication as needed. Reposition every 2 hrs, maintain padded side rails x 4 at all times and reoriented pt frequ ently to prevent fall. Administer respiratory medications as ordered and adjust with use of respiratory protocols. Provide skilled PT interventions and training. RESTRAINT-RELATED GOALS: STRATEGIES TO ACHIEVE RESTRAINT GOALS: Outcome: Improving Physical Therapy Plan of Care Treatment Note Summary: Pt cleared for therapy by RN, Perla, pt agreeable to tx. Pt tends to display mild i mpulsivity and she stood before therapist and lines were positioned. Shaila has been participa ting in physical therapy for treatment of pain, impaired balance, decreased activity toleran ce, decreased safety skills, generalized weakness and deconditioning, impaired functional mo bility, gait instability. Emphasis of session included transfer training, bed mobility and gt progression and consistency for safety. Patient demonstrates progress towards functional goals as evidenced by improving bed mobility, stability with ambulation. Remaining barrier s to discharge and functional limitations include: assist level needed for safe community an d home environment ambulation, impaired coordination, min. tremor and ataxic movements. Shaila will benefit from continued therapeutic intervention to address ongoing impairments an d increase safety and independence with activities necessary for safe discharge. Refer pamella self for specific details regarding mobility. Physical Therapy Discharge Recommendations are: Recommended discharge disposition: nursing home facility Post discharge physical therapy recommendation: will benefit from structured setting, ongo ing low intensity therapy Equipment Recommendations: 2 wheeled walker (FWW), 4 wheeled walker (4WW), cane (straight, single point) (vs) Planned Interventions: balance training, bed mobility training, gait training, home exerci se program, postural re-education, patient/family education, ROM (Range of Motion), strength ening, stretching, transfer training Recommended Frequency: 5 times/wk Patient Status/Goals: Reflects last filed data and may be from multiple contributors. Gait close SBA d/t initial listing to left, min imbalance with turn navigation, mild tremor, mil d UE wt throught AD, vc for AD positioning closer to body for safety, vc for distance target ting to promote upright posture. standing breaks x2 d/t R forearm cramp/tightness Level of Maverick: stand by assist, verbal cues required (close) Assistive Device: 2 wheeled walker (FWW) Distance (feet): 195', 120', 75' Impairments: impaired balance, motor control impaired, coordination impaired Transfers Light Sup d/t general safety, slight impulsivity, vc for waiting for therapist to be in pos ition, vc for bringing AD device with her to chair Sit-Stand, Level of Maverick: supervised, verbal cues required (Light) Stand-Sit, Level of Maverick: supervised, verbal cues required [id number], Assistive Device: 2 wheeled walker (FWW) Safety Issues: sequencing ability decreased, step length decreased, loses balance backward Impairments: pain, impaired balance, coordination impaired, motor control impaired Bed Mobility Mod I d/t extra time Assistive Device: bed rails Supine to Sit, Level of Maverick: modified independent Sit to Supine, Level of Maverick: modified independent Impairments: postural control impaired, coordination impaired, motor control impaired Balance Sitting Balance: Static: good balance Sitting Balance: Dynamic: fair balance Standing Balance: Static: fair balance Standing Balance: Dynamic: poor balance (+) Therapeutic Exercise vc for slow controlled mvmts, repetition adherence Seated exercises: bilateral, ankle pumps, hip abduction/adduction, marching, long arc quads Repetitions: x10 Functional Endurance good; with mild activities presented this session, pt states not fatigue breaks d/t R forea rm cramp/tightness PT Goal Review Date Flowsheet Row Most Recent Value STG Review Date 11/09/16 at 11/03/2016 1150 [id number] Goal Flowsheet Row Most Recent Value STG Status progressing at 11/06/2016 1415 STG Maverick Level independent at 11/03/2016 1150 STG Assistive Device none at 11/03/2016 1150 Att-Kokda-Lhd Goal Flowsheet Row Most Recent Value STG Status progressing at 11/06/2016 1415 STG Maverick Level modified independent at 11/05/2016 1419 STG Assistive Device -- [least restrictive AD, either FWW or cane] at 11/05/2016 1419 Gait Goal Flowsheet Row Most Recent Value STG Status progressing at 11/06/2016 1415 STG Maverick Level modified independent at 11/04/2016 1808 STG Assistive Device -- [Least restrictive AD] at 11/04/2016 1808 STG Distance (feet) 300 at 11/04/2016 1808 Electronically signed by: Lul Hermosillo PTA, 11/06/2016 18:13 lan of Jana Yang, RDN - 11/06/2016 1:29 PM PDT Problem: Patient Care Overview (Adult) Goal: Care Team Goals & Evaluation PROBLEM-RELATED GOALS: Pt will have minimal agitation, anxiety and free of seizure by 11/07/16 Pt will have safe paracentesis as evidence by within normal VS, O2 sats >92%, and minimal p ain by 11/07/16 Pt will be free of fall by 11/07/16 4 Shaila will have breath sounds consistent with baseline function throughout stay and revers e airway bronchospasm when indicated. Reevaluate goal by 11/04/16. 5. Shaila will be able to ambulate mod-I with appropriate AD by 11/09/16. STRATEGY TO ACHIEVE GOALS: Assess neuro status using CIWA protocol, and administer ativan as needed. Assist with Paracentesis maintaining stable BP, pulse oximetry. Assess and administer pain medication as needed. Reposition every 2 hrs, maintain padded side rails x 4 at all times and reoriented pt frequ ently to prevent fall. Administer respiratory medications as ordered and adjust with use of respiratory protocols. Provide skilled PT interventions and training. RESTRAINT-RELATED GOALS: STRATEGIES TO ACHIEVE RESTRAINT GOALS: Goal Evaluation: NUTRITION THERAPY NOTE Summary Pt UBW 165# currently at 146# and a -7339 cc per I/O (12% weight loss signifigant). Intake continue to be ~50% of general diet (less than 50% of nutritional needs for the pas t month) with 1200 cc fluid restriction. Estimated Energy and Protein Needs: (based on 75 kg) Kcal needs: 4160-0788 Kcals/day Protein needs:75-80 grams of protein/day Fluid goal:3291-0509 cc fluid per day Nutrition Plan of Care: Nutrition Diagnosis: Malnutrition related to high ETOH intake as evidenced by pt hx of a 6 pk beer daily Interventions: 1. Supplements TID 2. Encourage oral intake Oral Nutrition Promotion: rest periods promoted Nutrition Goals: 1. Meet nutritional needs 2. Tolerate health shakes Monitor: 1. Nutritional parameters 2. TOlerance to supplements F/u in 3 days. Available as needed, ext [phone] Assessment: Diet Order: For your reference, current, active order is: Diet general; 1200 ml fluid; Effective Now Intake 50% Labs: Recent Labs 11/06/16 0431 11/05/16 0501 11/04/16 0356 NA 129* 131* 134* K 3.6 3.5 3.8 CL 104 105 105 BUN 4* 7 8 CREA 0.70 0.71 0.73 ALBUMIN 1.4* 1.4* 1.4* MG 1.1* 1.2* 1.6* Anthropometrics: Height: 170.2 cm (5' 7") Weight: 66.3 kg (146 lb 3.2 oz) Wt Readings from Last 3 Encounters: 11/06/16 66.3 kg (146 lb 3.2 oz) 09/04/15 73.6 kg (162 lb 4.1 oz) 03/17/15 63.5 kg (140 lb) Body mass index is 22.9 kg/m. Electronically Signed by: Jana Huitron RDN 11/06/2016 13:19 ed Student Note - Josias Fernandez, Medical Student - 11/06/2016 7:59 AM PDTFormatting of this note might be di fferent from the original. Medical Student Progress Note Subjective: 46 year old female with a history of alcoholism, seizures, cirrhosis due to alcoholism, and HTN was admitted on 11/01/16 due to having seizures. She has had a fever since 3:00 this mor hang and has experienced some chills and a sore throat. She continues to have some shortness of breath off and on with wheezing and has a dry cough. The albuterol has been helping with the shortness of breath. She has sharp chest pain when taking a deep breath. She denies any nausea or vomiting. She also has a rash on the side of her ride thigh which does not itch b ut she scratches away the bumps. Medications: Current Facility-Administered Medications: acetaminophen 650 mg Oral Q4H PRN albuterol 2.5 mg Nebulization RT Q4H PRN albuterol-ipratropium 3 mL Nebulization RT Q6H aluminum & magnesium hydroxide-simethicone 30 mL Oral Q4H PRN folic acid with thiamine and pyridoxine IVPB Intravenous Daily furosemide 20 mg Oral BID (8 and 16) lactulose 15 mL Oral Daily levETIRAcetam 500 mg Oral BID LORazepam 1-4 mg Oral PRN Or LORazepam 0.5-4 mg Intravenous PRN metoprolol tartrate 2.5 mg Intravenous Q4H PRN ondansetron 4 mg Intravenous Q6H PRN oxyCODONE 5 mg Oral Q6H PRN pantoprazole 40 mg Oral QAM AC polyethylene glycol 17 g Oral Daily PRN spironolactone 50 mg Oral BID (8 and 16) Allergies: Allergies Allergen Reactions Ciprofloxacin Anaphylaxis Sulfamethoxazole-Trimethoprim Anaphylaxis Ibuprofen Hives Pt also has liver failure Intolerance No active intolerances/contraindications Problem List: 1. Alcohol withdrawal seizure 2. Alcohol withdrawal syndrome with complication 3. Acute hyponatremia 4. Acute hypokalemia 5 Bilateral lower extremity edema 6. Alcoholic cirrhosis of liver with ascites 7. Ascites due to alcoholic cirrhosis. Vitals: BP 139/81 | Pulse 104 | Temp 37.9 C (100.2 F) (Oral) | Resp 18 | Ht 1.702 m (5' 7") | Wt 66.3 kg (146 lb 3.2 oz) | LMP 06/24/2016 (LMP Unknown) | SpO2 95% | BMI 22.90 kg/m I/O: Intake/Output Summary (Last 24 hours) at 11/06/16 0805 Last data filed at 11/06/16 0620 Gross per 24 hour Intake 540 ml Output 3300 ml Net -2760 ml Physical Exam: General: well appearing female in no apparent distress. Cardiovascular: tachycardic, no murmur, rubs or gallops. Respiratory: non-labored, slight expiratory wheezing left upper lobe, right lung clear to a uscultation. Abdominal: soft, tender to palpation, with normal bowel tones. Extremities: +2 pedal pulses, rash on right thigh, no edema. Labs: Recent Results (from the past 24 hour(s)) Comprehensive Metabolic Panel Result Value Ref Range NA 129 (L) 136 - 149 mmol/L K 3.6 3.5 - 5.1 mmol/L CL 104 98 - 109 mmol/L CO2 21 (L) 24 - 31 mmol/L ANION GAP 4 3 - 16 mmol/L GLUCOSE 101 70 - 109 mg/dL BUN 4 (L) 7 - 18 mg/dL Creatinine, Serum/Plasma 0.70 0.60 - 1.30 mg/dL eGFR if not >60 >=60 mL/min/1.73m2 CALCIUM 7.7 (L) 8.3 - 10.5 mg/dL ALBUMIN 1.4 (L) 3.2 - 5.0 g/dL BILIRUBIN TOTAL 0.9 0.1 - 1.5 mg/dL Total protein 5.3 (L) 6.0 - 7.8 g/dL AST 29 10 - 42 U/L ALT 13 6 - 45 U/L ALK PHOS 108 40 - 110 U/L GLOBULIN 3.9 (H) 2.1 - 3.8 g/dL Albumin/Globulin ratio 0.4 (L) 0.8 - 2.0 BUN/CREA 5.7 CBC with Differential Result Value Ref Range WBC 5.9 4.0 - 11.0 K/uL RBC 2.86 (L) 3.70 - 5.20 M/uL Hgb 9.2 (L) 11.5 - 16.0 g/dL Hct 27.4 (L) 34.0 - 47.0 % MCV 95.7 83.0 - 101.0 fL MCH 32.1 28.0 - 35.0 pg MCHC 33.5 32.0 - 36.0 g/dL RDW-CV 15.1 (H) <15.0 % Platelet Count 142 140 - 440 K/uL MPV 7.9 fL % Neutrophils 57.2 45.0 - 82.0 % % Lymphocytes 12.9 (L) 20.0 - 45.0 % % Monocytes 21.2 (H) 4.0 - 12.0 % % Eosinophils 7.2 (H) 0.0 - 5.0 % % Basophils 1.5 (H) 0.0 - 1.0 % Absolute Neutrophils 3.40 1.80 - 8.50 K/uL Absolute Lymphocytes 0.80 0.60 - 3.20 K/uL Absolute Monocytes 1.30 (H) 0.00 - 1.00 K/uL Absolute Eosinophils 0.40 0.00 - 0.40 K/uL Absolute Basophils 0.10 0.00 - 0.10 K/uL Magnesium Result Value Ref Range MG 1.1 (L) 1.8 - 2.5 mg/dL Assessment/Plan: Wheezing: - Continue albuterol treatment four times a day. - Continue lasix 20 mg BID. - Order chest x-ray. - Urinalysis with reflex culture ordered. Hypomagnesemia/Hyponatremia: - Administer 6 g magnesium sulfate. - Continue 1.2 L fluid restriction. Alcoholism/ Malnutrition - Patient administered a total of 1 mg lorazepam yesterday, has not needed lorazepam yester day or today. - Continue lorazepam 0.5-4 mg as needed for withdrawal symptoms. - Continue folic acid 1 mg, thiamine 100 mg daily. - Fiber restricted diet. Seizures: - Patient has not experience a seizure since admission. - Continue Keppra. Cirrhosis secondary to alcoholism: - Paracentesis 5 L on 11/01, showed no spontaneous bacterial peritonitis. - Pantoprazole 40 mg daily. Acute heart failure, unknown subtype/tachycardia: - Metoprolol as needed if HR >125. - Check echo during this hospitalization. Miliaria/Contact Dermatitis: - Can exfolate with cloth - Wear breathable clothing. - Provide Acetaminophen as needed for fever. DVT prophylaxis: SCD's M. Rebecca OMS III. lan of Care - Joao on, Kamille Dickson RN - 11/06/2016 5:21 AM PDTProblem: Patient Care Overview (Adult) Goal: Care Team Goals & Evaluation PROBLEM-RELATED GOALS: Pt will have minimal agitation, anxiety and free of seizure by 11/07/16 Pt will have safe paracentesis as evidence by within normal VS, O2 sats >92%, and minimal p ain by 11/07/16 Pt will be free of fall by 11/07/16 4 Shaila will have breath sounds consistent with baseline function throughout stay and revers e airway bronchospasm when indicated. Reevaluate goal by 11/04/16. 5. Shaila will be able to ambulate mod-I with appropriate AD by 11/09/16. STRATEGY TO ACHIEVE GOALS: Assess neuro status using CIWA protocol, and administer ativan as needed. Assist with Paracentesis maintaining stable BP, pulse oximetry. Assess and administer pain medication as needed. Reposition every 2 hrs, maintain padded side rails x 4 at all times and reoriented pt frequ ently to prevent fall. Administer respiratory medications as ordered and adjust with use of respiratory protocols. Provide skilled PT interventions and training. RESTRAINT-RELATED GOALS: STRATEGIES TO ACHIEVE RESTRAINT GOALS: Outcome: Improving Goal Evaluation: Pt. more alert. Temp. 38 early am. Lungs with exp. wheezes. Dry Cough. Has diuresed well through the night. Received po lasix and po aldactone. Continue with fluid restriction. Tolerates up to BSC well with minimal assist. Showered. Tele on. HR has been ST. Did not require ativan through the night. AM labs drawn from [facility] PICC. A-1 blood return. Pt. has had Rehab in the past. May go to SNF upon DC or home. lan of Care - Austen Naqvi RRT - 11/06/2016 1:48 AM PDTProblem: Patient Care Overview (Adult) Goal: Care Team Goals & Evaluation PROBLEM-RELATED GOALS: Pt will have minimal agitation, anxiety and free of seizure by 11/07/16 Pt will have safe paracentesis as evidence by within normal VS, O2 sats >92%, and minimal p ain by 11/07/16 Pt will be free of fall by 11/07/16 4 Shaila will have breath sounds consistent with baseline function throughout stay and revers e airway bronchospasm when indicated. Reevaluate goal by 11/04/16. 5. Shaila will be able to ambulate mod-I with appropriate AD by 11/09/16. STRATEGY TO ACHIEVE GOALS: Assess neuro status using CIWA protocol, and administer ativan as needed. Assist with Paracentesis maintaining stable BP, pulse oximetry. Assess and administer pain medication as needed. Reposition every 2 hrs, maintain padded side rails x 4 at all times and reoriented pt frequ ently to prevent fall. Administer respiratory medications as ordered and adjust with use of respiratory protocols. Provide skilled PT interventions and training. RESTRAINT-RELATED GOALS: STRATEGIES TO ACHIEVE RESTRAINT GOALS: Outcome: Unchanged Goal Evaluation: Patient not requiring PRN treatments. BS scattered wheezes sometime, but clearing with reinaldo atment. Slight confusion. Sating 97% on room air. lan of Care - Liberty Adkins RRT - 11/05/2016 4:18 PM PDTProblem: Patient Care Overview (Adult) Goal: Care Team Goals & Evaluation PROBLEM-RELATED GOALS: Pt will have minimal agitation, anxiety and free of seizure by 11/07/16 Pt will have safe paracentesis as evidence by within normal VS, O2 sats >92%, and minimal p ain by 11/07/16 Pt will be free of fall by 11/07/16 4 Shaila will have breath sounds consistent with baseline function throughout stay and revers e airway bronchospasm when indicated. Reevaluate goal by 11/04/16. 5. Shaila will be able to ambulate mod-I with appropriate AD by 11/09/16. STRATEGY TO ACHIEVE GOALS: Assess neuro status using CIWA protocol, and administer ativan as needed. Assist with Paracentesis maintaining stable BP, pulse oximetry. Assess and administer pain medication as needed. Reposition every 2 hrs, maintain padded side rails x 4 at all times and reoriented pt frequ ently to prevent fall. Administer respiratory medications as ordered and adjust with use of respiratory protocols. Provide skilled PT interventions and training. RESTRAINT-RELATED GOALS: STRATEGIES TO ACHIEVE RESTRAINT GOALS: Outcome: Improving Goal Evaluation: SpO2 98 % on room air Breath sounds scattered wheezes before treatment clearing after. Nebs given as ordered To lerates treatments well. lan of Care - Lachelle Mahoney, PT - 11/05/2016 2:15 PM PDT Problem: Patient Care Overview (Adult) Goal: Care Team Goals & Evaluation PROBLEM-RELATED GOALS: Pt will have minimal agitation, anxiety and free of seizure by 11/07/16 Pt will have safe paracentesis as evidence by within normal VS, O2 sats >92%, and minimal p ain by 11/07/16 Pt will be free of fall by 11/07/16 4 Shaila will have breath sounds consistent with baseline function throughout stay and revers e airway bronchospasm when indicated. Reevaluate goal by 11/04/16. 5. Shaila will be able to ambulate mod-I with appropriate AD by 11/09/16. STRATEGY TO ACHIEVE GOALS: Assess neuro status using CIWA protocol, and administer ativan as needed. Assist with Paracentesis maintaining stable BP, pulse oximetry. Assess and administer pain medication as needed. Reposition every 2 hrs, maintain padded side rails x 4 at all times and reoriented pt frequ ently to prevent fall. Administer respiratory medications as ordered and adjust with use of respiratory protocols. Provide skilled PT interventions and training. RESTRAINT-RELATED GOALS: STRATEGIES TO ACHIEVE RESTRAINT GOALS: Outcome: Improving Physical Therapy Plan of Care Treatment Note Summary: Pt santy PT session well and demonstrated progress toward functional goals as evide nced by diminishing need for assistance w/ functional mobility and increasing tolerance for gait. She continues to present w/ impaired coordination, tremor and ataxia however her tremo r and ataxia appear to be diminishing in intensity. Refer below for details of functional le vels. Pt will benefit from continued PT interventions to promote increased independence w/ f unctional activities necessary for safe home discharge. It is likely she would benefit from placement at SNF for ongoing therapy services w/in a structured setting to promote increased safety and independence prior to home discharge. Physical Therapy Discharge Recommendations are: Recommended discharge disposition: nursing home facility Post discharge physical therapy recommendation: will benefit from structured setting, ongo ing low intensity therapy Equipment Recommendations: (TBD; FWW vs. SPC) Planned Interventions: balance training, bed mobility training, gait training, home exerci se program, postural re-education, patient/family education, ROM (Range of Motion), strength ening, stretching, transfer training Recommended Frequency: 5 times/wk Patient Status/Goals: Reflects last filed data and may be from multiple contributors. Gait cuing for positioning w/ FWW, and posture, continues w/ tremor, narrow KATHARINA, fwd flexed post ure w/ excessive wt on BUE's. Level of Maverick: contact guard assist, verbal cues required Assistive Device: 2 wheeled walker (FWW) Distance (feet): 300 Impairments: impaired balance, motor control impaired, coordination impaired Transfers good technique, no cuing needed Sit-Stand, Level of Maverick: supervised Stand-Sit, Level of Maverick: supervised [id number], Assistive Device: 2 wheeled walker (FWW) Safety Issues: sequencing ability decreased, step length decreased, loses balance backward Impairments: pain, impaired balance, coordination impaired, motor control impaired Bed Mobility No physical assist needed Assistive Device: bed rails, HOB elevated Supine to Sit, Level of Maverick: modified independent Sit to Supine, Level of Maverick: modified independent Impairments: postural control impaired, coordination impaired, motor control impaired Balance Sitting Balance: Static: good balance Sitting Balance: Dynamic: fair balance Standing Balance: Static: fair balance Standing Balance: Dynamic: poor balance Functional Endurance Good, able to mobilize 200' w/ only mild evidence of fatigue ROM ROM grossly WFL but pt lacks carmine. 15 degrees of L knee ext, L hip IR significantly limited, and L doriflexion limited to carmine. (-) 10 degrees from neutral. R ankle dorsiflexes to neutr al. Strength Pt with generalized weakness and decreased weight bearing through L LE during gait. Also un able to stand fully upright; per her sister, this has been the case ever since pt broke her back about 1 yr ago when she fell out of a moving truck. PT Goal Review Date Flowsheet Row Most Recent Value STG Review Date 11/09/16 at 11/03/2016 1150 [id number]-Ursdya Goal Flowsheet Row Most Recent Value STG Status progressing at 11/05/2016 1419 STG Maverick Level independent at 11/03/2016 1150 STG Assistive Device none at 11/03/2016 1150 Zji-[id number]-Gor Goal Flowsheet Row Most Recent Value STG Status progressing, revised at 11/05/2016 1419 STG Maverick Level modified independent at 11/05/2016 1419 STG Assistive Device -- [least restrictive AD, either FWW or cane] at 11/05/2016 1419 Gait Goal Flowsheet Row Most Recent Value STG Status progressing at 11/05/2016 1419 STG Maverick Level modified independent at 11/04/2016 1808 STG Assistive Device -- [Least restrictive AD] at 11/04/2016 1808 STG Distance (feet) 300 at 11/04/2016 1808 Electronically signed by: Lachelle Davis PT, 11/05/2016 14:23 ed Student Note - Josias Silvestre, Medical Student - 11/05/2016 8:12 AM PDTFormatting of this note might be diff erent from the original. Medical Student Progress Note Subjective: 46 year old female with a history of alcoholism, seizures, cirrhosis due to alcoholism, and HTN was admitted on 11/01/16 due to having seizures. Patient denies chest pain, nausea or vo miting. She has been able to walk around her room and has not experienced any dizziness. Ear ly this morning she had some wheezing with shortness of breath but at present does not feel short of breath. She denies a history of asthma but has been exposed to second hand smoke. Medications: Current Facility-Administered Medications: acetaminophen 650 mg Oral Q4H PRN albuterol 2.5 mg Nebulization RT Q4H PRN albuterol-ipratropium 3 mL Nebulization RT Q6H aluminum & magnesium hydroxide-simethicone 30 mL Oral Q4H PRN folic acid with thiamine and pyridoxine IVPB Intravenous Daily furosemide 20 mg Oral Daily lactulose 15 mL Oral Daily levETIRAcetam 500 mg Oral BID LORazepam 1-4 mg Oral PRN Or LORazepam 0.5-4 mg Intravenous PRN magnesium sulfate 4 g Intravenous Once metoprolol tartrate 2.5 mg Intravenous Q4H PRN ondansetron 4 mg Intravenous Q6H PRN oxyCODONE 5 mg Oral Q6H PRN pantoprazole 40 mg Oral QAM AC polyethylene glycol 17 g Oral Daily PRN potassium chloride 20 mEq Oral Once spironolactone 50 mg Oral Daily Allergies: Allergies Allergen Reactions Ciprofloxacin Anaphylaxis Sulfamethoxazole-Trimethoprim Anaphylaxis Ibuprofen Hives Pt also has liver failure Intolerance No active intolerances/contraindications Vitals: BP (!) 146/98 | Pulse 108 | Temp 37.2 C (99 F) (Oral) | Resp 18 | Ht 1.702 m (5' 7" ) | Wt 70.4 kg (155 lb 3.3 oz) | LMP 06/24/2016 (LMP Unknown) | SpO2 93% | BMI 24.31 kg/ m I/O: Intake/Output Summary (Last 24 hours) at 11/05/16 0816 Last data filed at 11/05/16 0600 Gross per 24 hour Intake 220 ml Output 2325 ml Net -2105 ml Physical Exam: General: Pleasant female lying in bed in no apparent distress. Cardiovascular: tachycardic, regular rate and rhythm, no murmurs, rubs or gallops. Respiratory: bilaterally expiratory wheezing. Abdominal: distended, non-tender normal bowel tones. Extremities: +2 pedal pulses, no edema, hyperpigmentation of legs. Labs: Recent Results (from the past 24 hour(s)) Comprehensive Metabolic Panel Result Value Ref Range NA 131 (L) 136 - 149 mmol/L K 3.5 3.5 - 5.1 mmol/L CL 105 98 - 109 mmol/L CO2 21 (L) 24 - 31 mmol/L ANION GAP 5 3 - 16 mmol/L GLUCOSE 100 70 - 109 mg/dL BUN 7 7 - 18 mg/dL Creatinine, Serum/Plasma 0.71 0.60 - 1.30 mg/dL eGFR if not >60 >=60 mL/min/1.73m2 CALCIUM 7.5 (L) 8.3 - 10.5 mg/dL ALBUMIN 1.4 (L) 3.2 - 5.0 g/dL BILIRUBIN TOTAL 0.7 0.1 - 1.5 mg/dL Total protein 5.0 (L) 6.0 - 7.8 g/dL AST 28 10 - 42 U/L ALT 12 6 - 45 U/L ALK PHOS 94 40 - 110 U/L GLOBULIN 3.6 2.1 - 3.8 g/dL Albumin/Globulin ratio 0.4 (L) 0.8 - 2.0 BUN/CREA 9.9 CBC with Differential Result Value Ref Range WBC 4.4 4.0 - 11.0 K/uL RBC 2.65 (L) 3.70 - 5.20 M/uL Hgb 8.5 (L) 11.5 - 16.0 g/dL Hct 25.4 (L) 34.0 - 47.0 % MCV 96.0 83.0 - 101.0 fL MCH 32.0 28.0 - 35.0 pg MCHC 33.3 32.0 - 36.0 g/dL RDW-CV 15.5 (H) <15.0 % Platelet Count 116 (L) 140 - 440 K/uL MPV 7.9 fL % Neutrophils 50.6 45.0 - 82.0 % % Lymphocytes 13.3 (L) 20.0 - 45.0 % % Monocytes 24.5 (H) 4.0 - 12.0 % % Eosinophils 8.2 (H) 0.0 - 5.0 % % Basophils 3.4 (H) 0.0 - 1.0 % Absolute Neutrophils 2.20 1.80 - 8.50 K/uL Absolute Lymphocytes 0.60 0.60 - 3.20 K/uL Absolute Monocytes 1.10 (H) 0.00 - 1.00 K/uL Absolute Eosinophils 0.40 0.00 - 0.40 K/uL Absolute Basophils 0.20 (H) 0.00 - 0.10 K/uL Magnesium Result Value Ref Range MG 1.2 (L) 1.8 - 2.5 mg/dL Assessment/Plan: Wheezing: - Continue albuterol treatment four times a day. - Continue lasix 20 mg BID. - Order chest x-ray Hypomagnesemia/Hyponatremia: - Administer 4 g magnesium sulfate. - 1.2L fluid restriction. Alcoholism/ Malnutrition - Patient administered a total of 1 mg lorazepam yesterday, has not needed lorazepam so far this morning. - Continue lorazepam 0.5-4 mg as needed for withdrawal symptoms. - Continue folic acid 1 mg, thiamine 100 mg daily. - Fiber restricted diet. Seizures: - Patient has not experience a seizure since admission. - Continue Keppra. Cirrhosis secondary to alcoholism: - Paracentesis 5 L on 11/01, showed no spontaneous bacterial peritonitis. - Pantoprazole 40 mg daily. Acute heart failure, unknown subtype/tachycardia: - Metoprolol as needed if HR >125. - Check echo during this hospitalization. Isabella Fernandez OMS III. tatiana of Care - Livan Motley, GRINDER - 11/05/2016 5:12 AM PDTProblem: Patient Care Overview (Adult) Goal: Care Team Goals & Evaluation PROBLEM-RELATED GOALS: Pt will have minimal agitation, anxiety and free of seizure by 11/07/16 Pt will have safe paracentesis as evidence by within normal VS, O2 sats >92%, and minimal p ain by 11/07/16 Pt will be free of fall by 11/07/16 4 Shaila will have breath sounds consistent with baseline function throughout stay and revers e airway bronchospasm when indicated. Reevaluate goal by 11/04/16. 5. Shaila will be able to ambulate mod-I with appropriate AD by 11/09/16. STRATEGY TO ACHIEVE GOALS: Assess neuro status using CIWA protocol, and administer ativan as needed. Assist with Paracentesis maintaining stable BP, pulse oximetry. Assess and administer pain medication as needed. Reposition every 2 hrs, maintain padded side rails x 4 at all times and reoriented pt frequ ently to prevent fall. Administer respiratory medications as ordered and adjust with use of respiratory protocols. Provide skilled PT interventions and training. RESTRAINT-RELATED GOALS: STRATEGIES TO ACHIEVE RESTRAINT GOALS: Outcome: Improving Goal Evaluation: Shaila SpO2 96 % on room air, Pt remained tachycardic all shift. Neb s delivered as scheduled, one PRN given early this shift at RN request. Pt denies SOB. Inter mittent audible wheeze. lan of [facility] on, Kamille Dickson RN - 11/05/2016 5:11 AM PDTProblem: Patient Care Overview (Adult) Goal: Care Team Goals & Evaluation PROBLEM-RELATED GOALS: Pt will have minimal agitation, anxiety and free of seizure by 11/07/16 Pt will have safe paracentesis as evidence by within normal VS, O2 sats >92%, and minimal p ain by 11/07/16 Pt will be free of fall by 11/07/16 4 Shaila will have breath sounds consistent with baseline function throughout stay and revers e airway bronchospasm when indicated. Reevaluate goal by 11/04/16. 5. Shaila will be able to ambulate mod-I with appropriate AD by 11/09/16. STRATEGY TO ACHIEVE GOALS: Assess neuro status using CIWA protocol, and administer ativan as needed. Assist with Paracentesis maintaining stable BP, pulse oximetry. Assess and administer pain medication as needed. Reposition every 2 hrs, maintain padded side rails x 4 at all times and reoriented pt frequ ently to prevent fall. Administer respiratory medications as ordered and adjust with use of respiratory protocols. Provide skilled PT interventions and training. RESTRAINT-RELATED GOALS: STRATEGIES TO ACHIEVE RESTRAINT GOALS: Outcome: Unchanged Goal Evaluation: Pt. had a fairly good night. Slept after po roxicodone and then wa tched TV. No sitter after about 2200. Remains seizure free. Remains free from falls/injury through the night. Seizure precautions. Did not require ativan po. Up to BR with minimal assist. Remains on tele. ST. Denied CP. On RA. AM labs drawn from [facility] PICC. A-1 bloo d return. Possibly will go to [facility] upon discharge. lan of Care - Lachelle Mahoney, PT - 11/04/2016 5:35 PM PDT Problem: Patient Care Overview (Adult) Goal: Care Team Goals & Evaluation PROBLEM-RELATED GOALS: Pt will have minimal agitation, anxiety and free of seizure by 11/07/16 Pt will have safe paracentesis as evidence by within normal VS, O2 sats >92%, and minimal p ain by 11/07/16 Pt will be free of fall by 11/07/16 4 Shaila will have breath sounds consistent with baseline function throughout stay and revers e airway bronchospasm when indicated. Reevaluate goal by 11/04/16. 5. Shaila will be able to ambulate mod-I with appropriate AD by 11/09/16. STRATEGY TO ACHIEVE GOALS: Assess neuro status using CIWA protocol, and administer ativan as needed. Assist with Paracentesis maintaining stable BP, pulse oximetry. Assess and administer pain medication as needed. Reposition every 2 hrs, maintain padded side rails x 4 at all times and reoriented pt frequ ently to prevent fall. Administer respiratory medications as ordered and adjust with use of respiratory protocols. Provide skilled PT interventions and training. RESTRAINT-RELATED GOALS: STRATEGIES TO ACHIEVE RESTRAINT GOALS: Outcome: Improving Physical Therapy Plan of Care Treatment Note Summary: Shaila has been participating in physical therapy for treatment of pain, impaired b alance, decreased activity tolerance, decreased safety skills, generalized weakness and deco nditioning, impaired functional mobility, gait instability. Emphasis of session included ga it, transfers and bed mob. Patient demonstrates progress towards functional goals as eviden erica by diminishing need for assistance w/ transfers and bed mob as well as increasing tolera nce for gait. Remaining barriers to discharge and functional limitations include severe reinaldo mor and ataxia which results in high fall risk and difficulty w/ gait safety. Shaila will benefit from continued therapeutic intervention to address ongoing impairments an d increase safety and independence with activities necessary for safe discharge. Refer pamella self for specific details regarding mobility. Physical Therapy Discharge Recommendations are: Recommended discharge disposition: nursing home facility Post discharge physical therapy recommendation: will benefit from structured setting, ongo ing low intensity therapy Equipment Recommendations: (TBD; FWW vs. SPC) Planned Interventions: balance training, bed mobility training, gait training, home exerci se program, postural re-education, patient/family education, ROM (Range of Motion), strength ening, stretching, transfer training Recommended Frequency: 5 times/wk Patient Status/Goals: Reflects last filed data and may be from multiple contributors. Gait Pt w/ continuous systemic tremor, moderately ataxic, equal wt bearing Level of Maverick: contact guard assist, verbal cues required, set up required Assistive Device: 2 wheeled walker (FWW) Distance (feet): 200 Impairments: impaired balance, motor control impaired, coordination impaired Transfers Cues provided to push up with UEs and reach back prior to sitting for improved safety. Sit-Stand, Level of Maverick: (NT as pt was received walking from bathroom w/ sitter) Stand-Sit, Level of Maverick: stand by assist, verbal cues required Cfx-Lutho-Tip, Assistive Device: 2 wheeled walker (FWW) Safety Issues: sequencing ability decreased, step length decreased, loses balance backward Impairments: pain, impaired balance, coordination impaired, motor control impaired Bed Mobility Sup>sit NT as pt was received standing, pt required only verbal cuing to return to supine p osition Balance Sitting Balance: Static: good balance Sitting Balance: Dynamic: fair balance Standing Balance: Static: fair balance Standing Balance: Dynamic: poor balance Functional Endurance Good, able to mobilize 200' w/ only mild evidence of fatigue ROM ROM grossly WFL but pt lacks carmine. 15 degrees of L knee ext, L hip IR significantly limited, and L doriflexion limited to carmine. (-) 10 degrees from neutral. R ankle dorsiflexes to neutr al. Strength Pt with generalized weakness and decreased weight bearing through L LE during gait. Also un able to stand fully upright; per her sister, this has been the case ever since pt broke her back about 1 yr ago when she fell out of a moving truck. PT Goal Review Date Flowsheet Row Most Recent Value STG Review Date 11/09/16 at 11/03/2016 1150 [id number]-[id number] Goal Flowsheet Row Most Recent Value STG Status new at 11/03/2016 1150 STG Maverick Level independent at 11/03/2016 1150 STG Assistive Device none at 11/03/2016 1150 [id number] Goal Flowsheet Row Most Recent Value STG Status progressing at 11/04/2016 1808 STG Maverick Level independent at 11/03/2016 1150 STG Assistive Device -- [TBD] at 11/03/2016 1150 Gait Goal Flowsheet Row Most Recent Value STG Status revised, progressing at 11/04/2016 180 STG Maverick Level modified independent at 11/04/2016 180 STG Assistive Device -- [Least restrictive AD] at 11/04/2016 180 STG Distance (feet) 300 at 11/04/2016 1808 Electronically signed by: Lachelle Davis, PT, 11/04/2016 18:12 lan of Care - Valerie Sesay, ALESSANDRO - 11/04/2016 3:54 PM PDTProblem: Patient Care Overview (Adult) Goal: Care Team Goals & Evaluation PROBLEM-RELATED GOALS: Pt will have minimal agitation, anxiety and free of seizure by 11/07/16 Pt will have safe paracentesis as evidence by within normal VS, O2 sats >92%, and minimal p ain by 11/07/16 Pt will be free of fall by 11/07/16 4 Shaila will have breath sounds consistent with baseline function throughout stay and revers e airway bronchospasm when indicated. Reevaluate goal by 11/04/16. 5. Shaila will be able to ambulate mod-I with appropriate AD by 11/09/16. STRATEGY TO ACHIEVE GOALS: Assess neuro status using CIWA protocol, and administer ativan as needed. Assist with Paracentesis maintaining stable BP, pulse oximetry. Assess and administer pain medication as needed. Reposition every 2 hrs, maintain padded side rails x 4 at all times and reoriented pt frequ ently to prevent fall. Administer respiratory medications as ordered and adjust with use of respiratory protocols. Provide skilled PT interventions and training. RESTRAINT-RELATED GOALS: STRATEGIES TO ACHIEVE RESTRAINT GOALS: Outcome: Improving Goal Evaluation: Shaila took her treatments well SpO2: 98 % on room air, breath sounds coarse in right base ot herwise clear lan of Care - Yun Holley RRT - 11/04/2016 5:53 AM PDTProblem: Patient Care Overview (Adult) Goal: Care Team Goals & Evaluation PROBLEM-RELATED GOALS: Pt will have minimal agitation, anxiety and free of seizure by 11/07/16 Pt will have safe paracentesis as evidence by within normal VS, O2 sats >92%, and minimal p ain by 11/07/16 Pt will be free of fall by 11/07/16 4 Shaila will have breath sounds consistent with baseline function throughout stay and revers e airway bronchospasm when indicated. Reevaluate goal by 11/04/16. 5. Shiala will be able to ambulate mod-I with appropriate AD by 11/09/16. STRATEGY TO ACHIEVE GOALS: Assess neuro status using CIWA protocol, and administer ativan as needed. Assist with Paracentesis maintaining stable BP, pulse oximetry. Assess and administer pain medication as needed. Reposition every 2 hrs, maintain padded side rails x 4 at all times and reoriented pt frequ ently to prevent fall. Administer respiratory medications as ordered and adjust with use of respiratory protocols. Provide skilled PT interventions and training. RESTRAINT-RELATED GOALS: STRATEGIES TO ACHIEVE RESTRAINT GOALS: Goal Evaluation: pt took txs as ordered. Sats 95/RA. Breath sounds clear and dim with audible wheezes follo wing tx. lan of Care - Clare Cruz, PT - 11/03/2016 6:26 PM PDTFormatting of this note might be different from t he original. Problem: Patient Care Overview (Adult) Goal: Care Team Goals & Evaluation PROBLEM-RELATED GOALS: Pt will have minimal agitation, anxiety and free of seizure by 11/07/16 Pt will have safe paracentesis as evidence by within normal VS, O2 sats >92%, and minimal p ain by 11/07/16 Pt will be free of fall by 11/07/16 4 Shaila will have breath sounds consistent with baseline function throughout stay and revers e airway bronchospasm when indicated. Reevaluate goal by 11/04/16. 5. Shaila will be able to ambulate mod-I with appropriate AD by 11/09/16. STRATEGY TO ACHIEVE GOALS: Assess neuro status using CIWA protocol, and administer ativan as needed. Assist with Paracentesis maintaining stable BP, pulse oximetry. Assess and administer pain medication as needed. Reposition every 2 hrs, maintain padded side rails x 4 at all times and reoriented pt frequ ently to prevent fall. Administer respiratory medications as ordered and adjust with use of respiratory protocols. Provide skilled PT interventions and training. RESTRAINT-RELATED GOALS: STRATEGIES TO ACHIEVE RESTRAINT GOALS: Physical Therapy Plan of Care Initial Evaluation, Treatment Note Summary: Pt is a 46 y.o.femalewith a history ofalcoholism and alcoholic cirrhosis wi th ascites who still was drinking on a daily basis but had decided to stop "cold turkey" (pe r her sister). Pt was admitted to [facility] with primary dx of seizures, severe electrolyte imba ramirez, malnutrition. acute heart failure, all likely related to ETOH and withdrawal. Per mark Baker, pt used SPC and Anette provided extensive assistance with dressing, bathing, mobil ity, cooking, cleaning. However, pt did walk independently at times and even without her can e but has hx of multiple falls. Ex-boyfriend lives [place] [facility] [place] same property and he is the person who mostly provides transportation for pt. Anette reports that one of last falls was when pt was returning from visiting her boyfriend and was walking alone without her cane. Danielle davila reports that pt also with fell onto her knees and sprained her L ankle during one of her seizures. PT eval and treatment completed. Pt presents with multiple healing abrasions and areas of b ruising, pain, impaired balance, decreased activity tolerance, decreased safety skills, gene ralized weakness and deconditioning, impaired functional mobility, and gait instability. She is oriented to person and possibly place; lethargic and iwth minimal verbalization but part icipatory and able to follow simple cues within context > 50% of the time. Pt seen for short transfer and gait training session and then lunch tray arrived, so this PT returned 2nd par t of split session after lunch. At that time, pt was taped for L lateral ankle support and a lso Kinesiotape placed around L patella for increased proprioception and pain control. Upon re-assessment of gait after taping, pt reported less pain and was able to demo improved weig ht bearing through L LE. Physical Therapy Discharge Recommendations are: Recommended discharge disposition: nursing home facility Post discharge physical therapy recommendation: will benefit from structured setting, ongo ing low intensity therapy Equipment Recommendations: (TBD; FWW vs. SPC) Planned Interventions: balance training, bed mobility training, gait training, home exerci se program, postural re-education, patient/family education, ROM (Range of Motion), strength ening, stretching, transfer training Recommended Frequency: 5 times/wk Patient Status/Goals: Reflects last filed data and may be from multiple contributors. Gait Pt with ataxic and antalgic gait pattern and decreased weight shift onto L LE Level of Maverick: contact guard assist, verbal cues required, set up required Assistive Device: 2 wheeled walker (FWW) Distance (feet): 40 Transfers Cues provided to push up with UEs and reach back prior to sitting for improved safety. Sit-Stand, Level of Maverick: set up required, verbal cues required, contact guard assi st Stand-Sit, Level of Maverick: contact guard assist, verbal cues required Jwy-[id number]-Kio, Assistive Device: 2 wheeled walker (FWW) Safety Issues: sequencing ability decreased, step length decreased, loses balance backward Impairments: pain, impaired balance, coordination impaired, motor control impaired Bed Mobility NT as pt was already up in chair and wanted to stay there for lunch and then OT arriving d uring 2nd part of split session. Functional Endurance Impaired ROM ROM grossly WFL but pt lacks carmine. 15 degrees of L knee ext, L hip IR significantly limited, and L doriflexion limited to carmine. (-) 10 degrees from neutral. R ankle dorsiflexes to neutr al. Strength Pt with generalized weakness and decreased weight bearing through L LE during gait. Also un able to stand fully upright; per her sister, this has been the case ever since pt broke her back about 1 yr ago when she fell out of a moving truck. PT Goal Review Date Flowsheet Row Most Recent Value STG Review Date 11/09/16 at 11/03/2016 1150 Lantfb-Kjb-Rrghhf Goal Flowsheet Row Most Recent Value STG Status new at 11/03/2016 1150 STG Maverick Level independent at 11/03/2016 1150 STG Assistive Device none at 11/03/2016 1150 Usb-Pkxxp-Xlo Goal Flowsheet Row Most Recent Value STG Status new at 11/03/2016 1150 STG Maverick Level independent at 11/03/2016 1150 STG Assistive Device -- [TBD] at 11/03/2016 1150 Gait Goal Flowsheet Row Most Recent Value STG Status new at 11/03/2016 1150 STG Maverick Level independent at 11/03/2016 1150 STG Assistive Device -- [TBD] at 11/03/2016 1150 Electronically signed by: Clare Menchaca, PT, 11/03/2016 18:27 lan of Care - [facility] sis, Carlos Rice, OT - 11/03/2016 4:54 PM PDTFormatting of this note might be different from t he original. Problem: Patient Care Overview (Adult) Goal: Care Team Goals & Evaluation PROBLEM-RELATED GOALS: Pt will have minimal agitation, anxiety and free of seizure by 11/07/16 Pt will have safe paracentesis as evidence by within normal VS, O2 sats >92%, and minimal p ain by 11/07/16 Pt will be free of fall by 11/07/16 4 Shaila will have breath sounds consistent with baseline function throughout stay and revers e airway bronchospasm when indicated. Reevaluate goal by 11/04/16. STRATEGY TO ACHIEVE GOALS: Assess neuro status using CIWA protocol, and administer ativan as needed. Assist with Paracentesis maintaining stable BP, pulse oximetry. Assess and administer pain medication as needed. Reposition every 2 hrs, maintain padded side rails x 4 at all times and reoriented pt frequ ently to prevent fall. Administer respiratory medications as ordered and adjust with use of respiratory protocols. RESTRAINT-RELATED GOALS: STRATEGIES TO ACHIEVE RESTRAINT GOALS: Occupational Therapy Plan of Care Initial Evaluation Note Summary: pt seen for OT evaluation, as pt is experiencing functional decline as she is in withdrawal from ETOH. Self care ADLs, mobility, functional transfers are limited due to L fo ot injury and impaired LOC and balance. Pt will benefit from skilled OT to address functiona l impairments and improve safety, functional transfers, and ADL performance. Occupational Therapy Discharge Recommendations are: Recommended discharge disposition: home with assist Post discharge occupational therapy recommendation: family involved/supportive, will benef it from structured setting Equipment Recommendations: Planned Interventions:ADL retraining, IADL retraining, cognitive retraining, fine motor event coordinator marketing and sales rdination training Recommended Frequency: 3 times/wk Patient Status/Goals: Reflects last filed data and may be from multiple contributors. ADLs Pt experiencing difficulty engaging in activity, attending to verbal instructions, replies are sometimes difficult to hear and understand. Max A to don socks LB Dressing, Level of Maverick: maximal assist (25% patient effort) Assistive Device: none LB Dressing Assess/Train, Position: sitting LB Dressing Assess/Train, Impairments: decreased flexibility, pain, motor control impaired, coordination impaired, impaired balance Required min A to stand at sink with FWW for grooming tasks, tends to lean backward when up right, vs leaning on forearms on countertop. Grooming, Level of Maverick: minimal assist (75% patient effort) Assistive Device: none Grooming Assess/Train, Position: standing Grooming Assess/Train, Impairments: pain, coordination impaired, impaired balance, motor co ntrol impaired IADLs Encouraged pt's sister, Anette, to attempt to engage pt in recreational activities such as p laying cards and in conversation, to help ground her in reality and attend to external stimu li. Issued foam square to aid pt in keeping hands busy rather than pulling at monitor leads. Functional Endurance Fair (-), pt tolerated standing grooming tasks at sink, but returned to chair to rest after chris. Cognitive Mood/Behavior: restless, cooperative, hypoactive (quiet, withdrawn) Orientation: disoriented x 4 Attention: mild impairment, needs re-direction, difficulty attending to task/directions Speech: incoherent, pace/rate variance Follows Commands/Answers Questions: 50% of the time Transfers Sit-Stand, Level of Maverick: minimal assist (75% patient effort) Stand-Sit, Level of Maverick: contact guard assist Vbc-[id number]-Gus, Assistive Device: 2 wheeled walker (FWW) Safety Issues: sequencing ability decreased, step length decreased, loses balance backward Impairments: pain, impaired balance, coordination impaired, motor control impaired ROM ROM grossly WFL but pt lacks carmine. 15 degrees of L knee ext, L hip IR significantly limited, and L doriflexion limited to carmine. (-) 10 degrees from neutral. R ankle dorsiflexes to neutr al. Strength Pt with generalized weakness and decreased weight bearing through L LE during gait. Also un able to stand fully upright; per her sister, this has been the case ever since pt broke her back about 1 yr ago when she fell out of a moving truck. LB Dressing Goal Flowsheet Row Most Recent Value STG Status new at 11/03/2016 1638 STG Maverick Level modified independent at 11/03/2016 1638 STG Adaptive Equipment none at 11/03/2016 1638 Toilet Transfer Goal Flowsheet Row Most Recent Value STG Status new at 11/03/2016 1638 STG Maverick Level modified independent at 11/03/2016 1638 STG Assistive Device toilet safety frame at 11/03/2016 1638 Tub/Shower Transfer Goal Flowsheet Row Most Recent Value Tub/Shower Type tub/shower combo at 11/03/2016 1638 STG Status new at 11/03/2016 1638 STG Maverick Level modified independent at 11/03/2016 1638 Functional Cognition Goal Flowsheet Row Most Recent Value STG Status new at 11/03/2016 1638 STG pt able to attend to and fully participate in self care ADL tasks, seated recreational activities and conversations consistently, 4/5 times. at 11/03/2016 1638 Electronically signed by: Carlos Gonsales OT, 11/03/2016 16:52 lan of Care - Alicia Baker RN - 11/03/2016 10:17 AM PDTProblem: Discharge Planning Goal: Patient will be discharged in a safe manner Outcome: Unchanged This CM called Janusz, DNS, at [facility] this AM. He stated that he did not receive the [facility] SNF referral so efaxed the SNF referral with fac e sheet to him this AM if needed for patient. Per her sister, patient has been there in the past for a short while. TN# [id number], [id number]. Let Janusz know that she is not ready to be discharged yet, and still has a sitter. 10:20 This CM called and spoke with [facility] and they will be having someone call me regarding some help in the home for this patient. Number given them to call this CM back. Annemarie, patient healthcare prof, is not in today. 11:30 This CM received call from Yola, Community Health Nurse Medical Office Scheduler at [facility], p# [phone]. She stated that they do NOT provide any in home care giving, that this would need to be set up with her [place] benefits. This CM gave Anette, patient's sister, the CM card with phone number and also the number of the [facility] for her to call in case the patient goes back home at discharge to get a home assessment done for setting up caregivers for her in the home. Let her know t hat [facility] does not provide these services. CM will need to follow up with [facility] regarding the referral faxed. Patient will most likely still be here over the weekend, which was told DWAYNE Boudreaux at [facility]. Electronically signed by: Alicia Baker RN 11/03/2016 11:49 17:45 Janusz returned call and stated that the RN did have concerns about a couple of meds th at were costly, but he stated that Rhondi would be back on Sunday. He is aware that patient will be here over weekend.Electronically signed by: Alicia Baker RN 11/03/2016 18:09 lan of Care - April Busch Chaplain - 11/03/2016 9:09 AM PDT Spiritual Care Shaila Son is a 46 y.o. female who is admitted for Hypokalemia [E87.6] Delirium tremens (HCC) [F10.231] Hypertensive urgency [I16.0] Recurrent seizures (HCC) [G40.909] Altered sensorium [R40.4]. Spiritual Evaluation: Raised Sabianist Spiritual Intervention: Had prayer with patient and her sister. Pastoral presence, and Active Listening. Spiritual Outcomes: Patient and her family grateful for kidney trimmer's visit. Spiritual Goals / Follow-up: Will see the patient as requested. If there are any other spiritual care issues that arise, please contact kidney trimmer. ed Student Not e - Josias Fernandez, Medical Student - 11/03/2016 7:20 AM PDTFormatting of this note might b e different from the original. Medical Student Progress Note Subjective: 46 year old female with a history of alcoholism, seizures, cirrhosis due to alcoholism, and HTN was admitted on 11/01/16 due to having seizures. She has some foot pain but denies any l eg pain. She also stated that she is experiencing stomach pain on and off but it not experie ncing any nausea and has some appetite. She has also been experienceing some shortness of br eath. Patient sleeping well and continues to be fatigued. Medications: Current Facility-Administered Medications: acetaminophen 650 mg Oral Q4H PRN albuterol 2.5 mg Nebulization RT Q4H PRN albuterol-ipratropium 3 mL Nebulization RT Q6H aluminum & magnesium hydroxide-simethicone 30 mL Oral Q4H PRN cefTRIAXone 1 g Intravenous Daily folic acid with thiamine and pyridoxine IVPB Intravenous Daily levETIRAcetam 500 mg Intravenous 2 times per day LORazepam 1-4 mg Oral PRN Or LORazepam 0.5-4 mg Intravenous PRN metoprolol tartrate 5 mg Intravenous Q4H PRN ondansetron 4 mg Intravenous Q6H PRN oxyCODONE 5 mg Oral Q6H PRN pantoprazole 40 mg Oral QAM AC polyethylene glycol 17 g Oral Daily PRN potassium chloride 20 mEq Oral TID WC Allergies: Allergies Allergen Reactions Ciprofloxacin Anaphylaxis Sulfamethoxazole-Trimethoprim Anaphylaxis Ibuprofen Hives Pt also has liver failure Intolerance No active intolerances/contraindications Vitals: BP (!) 122/92 | Pulse 122 | Temp 37.1 C (98.8 F) (Axillary) | Resp (!) 35 | Ht 1.70 2 m (5' 7") | Wt 70.7 kg (155 lb 13.8 oz) | LMP 06/24/2016 (LMP Unknown) | SpO2 90% | BM I 24.41 kg/m I/O: Intake/Output Summary (Last 24 hours) at 11/03/16 0722 Last data filed at 11/03/16 0400 Gross per 24 hour Intake 1851 ml Output 830 ml Net 1021 ml Physical Exam: General: fatigued female, alert and oriented to person, and time, she stated that she was i n [place]. Cardiovascular: tachycardic, aortic regurgitation, no rubs or gallops. Respiratory: tachypnic, clear to auscultation bilaterally. Abdominal: nontender, normal bowel tones with shifting dullness, hyperpigmented rash across abdomen. no asterixis. Extremities: bilateral hand tremors, +2 pedal pulses, hyperpigmented rash on legs bilateral ly, no edema. Labs: Recent Results (from the past 24 hour(s)) Basic Metabolic Panel Result Value Ref Range [...] Absolute Basophils 0.00 0.00 - 0.10 K/uL Magnesium Result Value Ref Range MG 1.9 1.8 - 2.5 mg/dL Assessment/Plan: Seizures: - Patient has not experience a seizure since admission. - Continue Keppra. Alcoholism/ Malnutrition - Continue lorazepam 2 mg as needed for withdrawal symptoms. - Continue folic acid 1 mg, thiamine 100 mg daily. - Fiber restricted diet. - Na, K, Mg in normal ranges. Cirrhosis secondary to alcoholism: - Paracentesis 5 L on 11/01, showed no spontaneous bacterial peritonitis. - Pantoprazole 40 mg daily. Acute heart failure, unknown subtype/tachycardia: - Metoprolol as needed if HR >125. - Check echo during this hospitalization. Isabella Fernandez OMS III. lan of Care - Cee Barros, GRINDER - 11/03/2016 5:43 AM PDTProblem: Patient Care Overview (Adult) Goal: Care Team Goals & Evaluation PROBLEM-RELATED GOALS: Pt will have minimal agitation, anxiety and free of seizure by 11/07/16 Pt will have safe paracentesis as evidence by within normal VS, O2 sats >92%, and minimal p ain by 11/07/16 Pt will be free of fall by 11/07/16 4 Shaila will have breath sounds consistent with baseline function throughout stay and revers e airway bronchospasm when indicated. Reevaluate goal by 11/04/16. STRATEGY TO ACHIEVE GOALS: Assess neuro status using CIWA protocol, and administer ativan as needed. Assist with Paracentesis maintaining stable BP, pulse oximetry. Assess and administer pain medication as needed. Reposition every 2 hrs, maintain padded side rails x 4 at all times and reoriented pt frequ ently to prevent fall. Administer respiratory medications as ordered and adjust with use of respiratory protocols. RESTRAINT-RELATED GOALS: STRATEGIES TO ACHIEVE RESTRAINT GOALS: Goal Evaluation: Shaila takes her treatments well. SpO2: 92 % on room air, BS clear. lan of Care - Susana Maurer RN - 11/03/2016 4:14 AM PDTProblem: Patient Care Overview (Adult) Goal: Care Team Goals & Evaluation PROBLEM-RELATED GOALS: Pt will have minimal agitation, anxiety and free of seizure by 11/07/16 Pt will have safe paracentesis as evidence by within normal VS, O2 sats >92%, and minimal p ain by 11/07/16 Pt will be free of fall by 11/07/16 4 Shaila will have breath sounds consistent with baseline function throughout stay and revers e airway bronchospasm when indicated. Reevaluate goal by 11/04/16. STRATEGY TO ACHIEVE GOALS: Assess neuro status using CIWA protocol, and administer ativan as needed. Assist with Paracentesis maintaining stable BP, pulse oximetry. Assess and administer pain medication as needed. Reposition every 2 hrs, maintain padded side rails x 4 at all times and reoriented pt frequ ently to prevent fall. Administer respiratory medications as ordered and adjust with use of respiratory protocols. RESTRAINT-RELATED GOALS: STRATEGIES TO ACHIEVE RESTRAINT GOALS: Outcome: Improving Goal Evaluation: Pt had fairly good night. Mild agitation and anxiety. Fidgety, restless and tremors presen t. Remains free from falls. Lung sounds clear, HR 120s, RR 20s, but BP stable and remains af ebrile. Pt was able to sleep well between cares, remaining asleep for up to 5 hours. lan of [facility] - Valerie Ro RRT - 11/02/2016 5:15 PM PDTProblem: Patient Care Overview (Adult) Goal: Care Team Goals & Evaluation PROBLEM-RELATED GOALS: Pt will have minimal agitation, anxiety and free of seizure by 11/07/16 Pt will have safe paracentesis as evidence by within normal VS, O2 sats >92%, and minimal p ain by 11/07/16 Pt will be free of fall by 11/07/16 4 Shaila will have breath sounds consistent with baseline function throughout stay and revers e airway bronchospasm when indicated. Reevaluate goal by 11/04/16. STRATEGY TO ACHIEVE GOALS: Assess neuro status using CIWA protocol, and administer ativan as needed. Assist with Paracentesis maintaining stable BP, pulse oximetry. Assess and administer pain medication as needed. Reposition every 2 hrs, maintain padded side rails x 4 at all times and reoriented pt frequ ently to prevent fall. Administer respiratory medications as ordered and adjust with use of respiratory protocols. RESTRAINT-RELATED GOALS: STRATEGIES TO ACHIEVE RESTRAINT GOALS: Outcome: Improving Goal Evaluation: Shaila took her treatments well by mask today SpO2: 96 % on room air breath sounds clear uppe r, slight crackles in bases lan of Care - Jennifer Bear RN - 11/02/2016 6:54 AM PDTProblem: Patient Care Overview (Adult) Goal: Care Team Goals & Evaluation PROBLEM-RELATED GOALS: Pt will have minimal agitation, anxiety and free of seizure by 11/07/16 Pt will have safe paracentesis as evidence by within normal VS, O2 sats >92%, and minimal p ain by 11/07/16 Pt will be free of fall by 11/07/16 4 Shaila will have breath sounds consistent with baseline function throughout stay and revers e airway bronchospasm when indicated. Reevaluate goal by 11/04/16. STRATEGY TO ACHIEVE GOALS: Assess neuro status using CIWA protocol, and administer ativan as needed. Assist with Paracentesis maintaining stable BP, pulse oximetry. Assess and administer pain medication as needed. Reposition every 2 hrs, maintain padded side rails x 4 at all times and reoriented pt frequ ently to prevent fall. Administer respiratory medications as ordered and adjust with use of respiratory protocols. RESTRAINT-RELATED GOALS: STRATEGIES TO ACHIEVE RESTRAINT GOALS: Outcome: Unchanged Goal Evaluation: Shaila is confused, oriented to self only, she is impulsive but to weak to get out of bed on her own, she is pulling on jackson and picc line CIWA 9-13, patient was was tachycardic last night [id number] , metoprolol given x 5, breath jose alejandro nds coarse crackles t/o, 40mg IV lasix given, 2G mag given, breath sounds much better, now a t RA sats >95 lan of Care - Cee Morrissey RRT - 11/02/2016 5:09 AM PDTProblem: Patient Care Overview (Adult) Goal: Care Team Goals & Evaluation PROBLEM-RELATED GOALS: Pt will have minimal agitation, anxiety and free of seizure by 11/07/16 Pt will have safe paracentesis as evidence by within normal VS, O2 sats >92%, and minimal p ain by 11/07/16 Pt will be free of fall by 11/07/16 4 Shaila will have breath sounds consistent with baseline function throughout stay and revers e airway bronchospasm when indicated. Reevaluate goal by 11/04/16. STRATEGY TO ACHIEVE GOALS: Assess neuro status using CIWA protocol, and administer ativan as needed. Assist with Paracentesis maintaining stable BP, pulse oximetry. Assess and administer pain medication as needed. Reposition every 2 hrs, maintain padded side rails x 4 at all times and reoriented pt frequ ently to prevent fall. Administer respiratory medications as ordered and adjust with use of respiratory protocols. RESTRAINT-RELATED GOALS: STRATEGIES TO ACHIEVE RESTRAINT GOALS: Goal Evaluation: Shaila takes her treatments well by blow by. SpO2: 94 % on room air, BS clear upper lobes/ f ine crackles in the bases. lan of Care - Lv Sabillon RN - 11/01/2016 7:11 PM PDTProblem: Patient Care Overview (Adult) Goal: Care Team Goals & Evaluation PROBLEM-RELATED GOALS: Pt will have minimal agitation, anxiety and free of seizure by 11/07/16 Pt will have safe paracentesis as evidence by within normal VS, O2 sats >92%, and minimal p ain by 11/07/16 Pt will be free of fall by 11/07/16 STRATEGY TO ACHIEVE GOALS: Assess neuro status using CIWA protocol, and administer ativan as needed. Assist with Paracentesis maintaining stable BP, pulse oximetry. Assess and administer pain medication as needed. Reposition every 2 hrs, maintain padded side rails x 4 at all times and reoriented pt frequ ently to prevent fall. RESTRAINT-RELATED GOALS: STRATEGIES TO ACHIEVE RESTRAINT GOALS: Goal Evaluation: Pt oriented to name only. Periods of increased agitation, impulsiveness and restlessness. CIWA 7 - 22. Total 17 mg ativan given/ 12 hr day shift. Metoprolol 5 mg IV x 1 given for HR 130 - 150's. Distended and firm abdomen. Paracentesis done per Dr Mancera with bedside US. 500 0 ml fluid removed. Right abdominal dressing dry and intact. KCL and Mg replaced for K level 2.8, 3.1 and Mg level 1.2 PICC placed to LAMINE. Sister at bedside. lan of Care - Alicia Baker RN - 11/01/2016 12:09 PM PDTProblem: Discharge Planning Goal: Patient will be discharged in a safe manner Outcome: Unchanged This CM met with patient briefly but she was not feeling well, so visited with her sister, Anette, who is her caregiver at home. Anette states that they both live in their aunts home in [place] and she is Shaila's caregi juice and helps her with her walking and all her ADL's. At this time she does not have any caregivers coming out to the home, but thinks this may b e necessary, pending how she does closer to discharge. She states that her sister's last drink of beer was this past Sunday, and that she chose to come here not [facility]'s since she just was in their ED yesterday for 3 hrs and they rele ased her and at home she had a "seizure" per Anette, so she was brought here by private car. Anette also states that Shaila is interested in quitting drinking and would like to go the [facility] in [place], a alcohol rehab center there. She also has 2 adult children ages 19 and 20 who live there in a foster home, but cold not get ahold of the family when she was just there recently to give them gifts that she had shannon duong, per Anette. Anette did report that patient has been at [facility] for rehab in the past when nereida jacobson needed it and that since this is close to their home Anette was in agreement to send a refe rral out to them again in case this is needed. [place] was too far away, she reports. [facility] faxed a SNF referral to with request to call this CM if needed for questions. Preference form was signed and placed in ghost chart. Left message with Irena to have her call me since was able to EPIC fax only not thru the i n-basket. This CM also called Uyen, financial counselor, requesting she come and assist sister in [facility] hospitaling patient applied for some in home caregiving since this has not been done in the past. She [place]. Anette states that patient's PCP is PERNELL Mcclendon, at the [facility],and that s he gets her meds from them as well, but no caregiving. Called and left message at [facility], p# [phone], to have Annemarie Garcia, pt c are coordinator, call this CM back LASHAY, to discuss d/c plan options. Anette states that her sister needs help with walking and she does have a cane and a walker but does not use them, Anette just helps her. She does not have a shower seat in her bathroom but her aunt does have one in hers that she could use if needed. This CM also called the [facility], p# [phone], and left message with April ngo CM, worker of the day, to return call LASHAY to discuss increased needs at home for this patient. This was done at the request of Uyen financial counselor, since patient is from [facility]. CM will need to follow closer to discharge regarding a SNF placement or more C/G help in [facility].Electronically signed by: Alicia Baker RN 11/01/2016 12:09 14:45 Edwin, hydrodynamics teacher for the day at [facility], called this CM and stated that if patient goes to SNF first for rehab the manager social there would contact them to [facility] some home care set up with assessments at SNF. If patient does go straight home from the ospital, then a family rep will need to call the office and get an appt made to come to the home to do an eval for potential CG hrs. Phone number of the PAS given to Anette, patient's s ister and CG.Electronically signed by: Alicia Baker RN 11/01/2016 14:48 lan of Suzy Mcmillan RN - 11/01/2016 3:31 AM [id number]: rec'd pt to rm 452 from ER, pt is somnulent, l ethargic, opens eyes briefly to voice, denies pain. Sister, anette, at bedside, assists w ans wering admit qstns. pts abd is grossly distended w ascites, both legs w 4+ pitting edema to hip/flank areas. Skin is tough, thickened w patchy thick dry areas. lan of Suzy Mcmillan RN - 2:18 AM [id number]: pt rec'd to rm 452 from ER, very somnulent, jackson in place, gross ascites/edema over abd, both LE up to mid flank pitting edema. Sister, anette, at bedside, h elpful w admit questions D Triage Notes - Belinda Roger RN - 10/31/2016 7:28 PM PDTPt here with concerns for multiple seizures. Family states that she has had three seizures today. Emesis x 5 today . Also c/o increased leg and hand swelling. abd swelling for the last couple weeks ago. Boaz es fevers. Pt typically drinks a 6 pack per day. Pt had 1 beer yesterday with no other drinking since then. documented in t his encounter Plan of Treatment Not on filedocumented as of this encounter Procedures + +--------+ + + + | Procedure Name | Priori | Date/Time | Associated Diagnosis | Comments | | | ty | | | | + +--------+ + + + | PHOSPHORUS | STAT | 11/07/2016 | | Results for this | | | | 1:24 PM | | procedure are in the | | | | PDT | | results section. | + +--------+ + + + | MAGNESIUM | STAT | 11/07/2016 | | Results for this | | | | 1:24 PM | | procedure are in the | | | | PDT | | results section. | + +--------+ + + + | BASIC METABOLIC | STAT | 11/07/2016 | | Results for this | | PANEL | | 1:24 PM | | procedure are in the | | | | PDT | | results section. | + +--------+ + + + | MAGNESIUM | Routin | 11/07/2016 | | Results for this | | | e | 2:11 AM | | procedure are in the | | | | PDT | | results section. | + +--------+ + + + | URINALYSIS WITH | Routin | 11/06/2016 | | Results for this | | MICROSCOPIC WITH | e | 2:48 PM | | procedure are in the | | CULTURE IF INDICATED | | PDT | | results section. | + +--------+ + + + | XR CHEST AP PORTABLE | LASHAY | 11/06/2016 | | Results for this | | | | 8:53 AM | | procedure are in the | | | | PDT | | results section. | + +--------+ + + + | CBC WITH | Routin | 11/06/2016 | | Results for this | | DIFFERENTIAL | e | 4:31 AM | | procedure are in the | | | | PDT | | results section. | + +--------+ + + + | PHOSPHORUS | Add-On | 11/06/2016 | | Results for this | | | | 4:31 AM | | procedure are in the | | | | PDT | | results section. | + +--------+ + + + | MAGNESIUM | Routin | 11/06/2016 | | Results for this | | | e | 4:31 AM | | procedure are in the | | | | PDT | | results section. | + +--------+ + + + | COMPREHENSIVE | Routin | 11/06/2016 | | Results for this | | METABOLIC PANEL | e | 4:31 AM | | procedure are in the | | | | PDT | | results section. | + +--------+ + + + | CBC WITH | Routin | 11/05/2016 | | Results for this | | DIFFERENTIAL | e | 5:01 AM | | procedure are in the | | | | PDT | | results section. | + +--------+ + + + | MAGNESIUM | Routin | 11/05/2016 | | Results for this | | | e | 5:01 AM | | procedure are in the | | | | PDT | | results section. | + +--------+ + + + | COMPREHENSIVE | Routin | 11/05/2016 | | Results for this | | METABOLIC PANEL | e | 5:01 AM | | procedure are in the | | | | PDT | | results section. | + +--------+ + + + | PROTIME INR | Routin | 11/04/2016 | | Results for this | | | e | 6:50 AM | | procedure are in the | | | | PDT | | results section. | + +--------+ + + + | CBC WITH | Routin | 11/04/2016 | | Results for this | | DIFFERENTIAL | e | 3:56 AM | | procedure are in the | | | | PDT | | results section. | + +--------+ + + + | MAGNESIUM | Routin | 11/04/2016 | | Results for this | | | e | 3:56 AM | | procedure are in the | | | | PDT | | results section. | + +--------+ + + + | COMPREHENSIVE | Routin | 11/04/2016 | | Results for this | | METABOLIC PANEL | e | 3:56 AM | | procedure are in the | | | | PDT | | results section. | + +--------+ + + + | XR CHEST AP PORTABLE | LASHAY | 11/03/2016 | Hypertensive | Results for this | | | | 10:58 AM | urgency | procedure are in the | | | | PDT | | results section. | + +--------+ + + + | CBC WITH | Routin | 11/03/2016 | | Results for this | | DIFFERENTIAL | e | 3:40 AM | | procedure are in the | | | | PDT | | results section. | + +--------+ + + + | MAGNESIUM | Routin | 11/03/2016 | | Results for this | | | e | 3:40 AM | | procedure are in the | | | | PDT | | results section. | + +--------+ + + + | CK TOTAL | Add-On | 11/03/2016 | | Results for this | | | | 3:40 AM | | procedure are in the | | | | PDT | | results section. | + +--------+ + + + | COMPREHENSIVE | Routin | 11/03/2016 | | Results for this | | METABOLIC PANEL | e | 3:40 AM | | procedure are in the | | | | PDT | | results section. | + +--------+ + + + | MAGNESIUM | Routin | 11/02/2016 | | Results for this | | | e | 3:30 PM | | procedure are in the | | | | PDT | | results section. | + +--------+ + + + | BASIC METABOLIC | Routin | 11/02/2016 | | Results for this | | PANEL | e | 3:30 PM | | procedure are in the | | | | PDT | | results section. | + +--------+ + + + | XR CHEST AP PORTABLE | Routin | 11/02/2016 | | Results for this | | | e | 6:04 AM | | procedure are in the | | | | PDT | | results section. | + +--------+ + + + | CBC WITH | Routin | 11/02/2016 | | Results for this | | DIFFERENTIAL | e | 3:32 AM | | procedure are in the | | | | PDT | | results section. | + +--------+ + + + | MAGNESIUM | Routin | 11/02/2016 | | Results for this | | | e | 3:32 AM | | procedure are in the | | | | PDT | | results section. | + +--------+ + + + | COMPREHENSIVE | Routin | 11/02/2016 | | Results for this | | METABOLIC PANEL | e | 3:32 AM | | procedure are in the | | | | PDT | | results section. | + +--------+ + + + | ECG 12 LEAD | STAT | 11/01/2016 | | Results for this | | | | 11:27 PM | | procedure are in the | | | | PDT | | results section. | + +--------+ + + + | B TYPE NATRIURETIC | STAT | 11/01/2016 | | Results for this | | PEPTIDE | | 11:27 PM | | procedure are in the | | | | PDT | | results section. | + +--------+ + + + | POTASSIUM | STAT | 11/01/2016 | | Results for this | | | | 11:25 PM | | procedure are in the | | | | PDT | | results section. | + +--------+ + + + | MAGNESIUM | STAT | 11/01/2016 | | Results for this | | | | 11:25 PM | | procedure are in the | | | | PDT | | results section. | + +--------+ + + + | XR CHEST AP PORTABLE | LASHAY | 11/01/2016 | Hypertensive | Results for this | | | | 5:04 PM | urgency Acute | procedure are in the | | | | PDT | hyponatremia Acute | results section. 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 | + +--------+ + + + | CULTURE, BODY FLUID, | Routin | 11/01/2016 | | Results for this | | AEROBE | e | 3:35 PM | | procedure are in the | | | | PDT | | results section. | + +--------+ + + + | CULTURE, BODY FLUID, | Routin | 11/01/2016 | | Results for this | | ANAEROBE | e | 3:35 PM | | procedure are in the | | | | PDT | | results section. | + +--------+ + + + | CULTURE, BODY FLUID, | Routin | 11/01/2016 | | Results for this | | STERILE, SMEAR, | e | 3:35 PM | | procedure are in the | | WITH ANAEROBES | | PDT | | results section. | + +--------+ + + + | CELL COUNT WITH | Routin | 11/01/2016 | | Results for this | | DIFFERENTIAL, BODY | e | 3:35 PM | | procedure are in the | | FLUID | | PDT | | results section. | + +--------+ + + + | PROTEIN, BODY FLUID | Routin | 11/01/2016 | | Results for this | | | e | 3:35 PM | | procedure are in the | | | | PDT | | results section. | + +--------+ + + + | ALBUMIN, BODY FLUID | Routin | 11/01/2016 | | Results for this | | | e | 3:35 PM | | procedure are in the | | | | PDT | | results section. | + +--------+ + + + | XR CHEST AP PORTABLE | LASHAY | 11/01/2016 | Hypertensive | Results for this | | | | 2:18 PM | urgency Acute | procedure are in the | | | | PDT | hyponatremia | results section. | | | | | Ascites due to | | | | | | alcoholic cirrhosis | | | | | | (HCC) Acute | | | | | | hypokalemia | | + +--------+ + + + | MAGNESIUM | Routin | 11/01/2016 | | Results for this | | | e | 1:05 PM | | procedure are in the | | | | PDT | | results section. | + +--------+ + + + | BASIC METABOLIC | Routin | 11/01/2016 | | Results for this | | PANEL | e | 1:05 PM | | procedure are in the | | | | PDT | | results section. | + +--------+ + + + | HCG, URINE, QUAL | Routin | 11/01/2016 | | Results for this | | | e | 9:38 AM | | procedure are in the | | | | PDT | | results section. | + +--------+ + + + | CBC WITH | Routin | 11/01/2016 | | Results for this | | DIFFERENTIAL | e | 4:13 AM | | procedure are in the | | | | PDT | | results section. | + +--------+ + + + | PHOSPHORUS | Add-On | 11/01/2016 | | Results for this | | | | 4:13 AM | | procedure are in the | | | | PDT | | results section. | + +--------+ + + + | MAGNESIUM | Routin | 11/01/2016 | | Results for this | | | e | 4:13 AM | | procedure are in the | | | | PDT | | results section. | + +--------+ + + + | CK TOTAL | Add-On | 11/01/2016 | | Results for this | | | | 4:13 AM | | procedure are in the | | | | PDT | | results section. | + +--------+ + + + | BASIC METABOLIC | Routin | 11/01/2016 | | Results for this | | PANEL | e | 4:13 AM | | procedure are in the | | | | PDT | | results section. | + +--------+ + + + | CULTURE, MRSA | Routin | 11/01/2016 | | Results for this | | | e | 2:26 AM | | procedure are in the | | | | PDT | | results section. | + +--------+ + + + | CT HEAD WO CONTRAST | STAT | 10/31/2016 | | Results for this | | | | 11:10 PM | | procedure are in the | | | | PDT | | results section. | + +--------+ + + + | URINALYSIS WITH | STAT | 10/31/2016 | | Results for this | | MICROSCOPIC WITH | | 10:09 PM | | procedure are in the | | CULTURE IF INDICATED | | PDT | | results section. | + +--------+ + + + | ECG 12 LEAD | STAT | 10/31/2016 | | Results for this | | | | 8:27 PM | | procedure are in the | | | | PDT | | results section. | + +--------+ + + + | XR CHEST AP PORTABLE | STAT | 10/31/2016 | | Results for this | | | | 8:26 PM | | procedure are in the | | | | PDT | | results section. | + +--------+ + + + | URINALYSIS WITH | STAT | 10/31/2016 | | Results for this | | MICROSCOPIC WITH | | 8:12 PM | | procedure are in the | | CULTURE IF INDICATED | | PDT | | results section. | + +--------+ + + + | AMMONIA | STAT | 10/31/2016 | | Results for this | | | | 8:12 PM | | procedure are in the | | | | PDT | | results section. | + +--------+ + + + | EXTRA GREEN TOP TUBE | Routin | 10/31/2016 | | Results for this | | | e | 8:07 PM | | procedure are in the | | | | PDT | | results section. | + +--------+ + + + | MAGNESIUM | Add-On | 10/31/2016 | | Results for this | | | | 8:07 PM | | procedure are in the | | | | PDT | | results section. | + +--------+ + + + | CULTURE, BLOOD | STAT | 10/31/2016 | | Results for this | | | | 7:57 PM | | procedure are in the | | | | PDT | | results section. | + +--------+ + + + | CULTURE, BLOOD | STAT | 10/31/2016 | | Results for this | | | | 7:57 PM | | procedure are in the | | | | PDT | | results section. | + +--------+ + + + | PTT | STAT | 10/31/2016 | | Results for this | | | | 7:57 PM | | procedure are in the | | | | PDT | | results section. | + +--------+ + + + | PROTIME INR | STAT | 10/31/2016 | | Results for this | | | | 7:57 PM | | procedure are in the | | | | PDT | | results section. | + +--------+ + + + | CBC WITH | STAT | 10/31/2016 | | Results for this | | DIFFERENTIAL | | 7:57 PM | | procedure are in the | | | | PDT | | results section. | + +--------+ + + + | LIPASE | STAT | 10/31/2016 | | Results for this | | | | 7:57 PM | | procedure are in the | | | | PDT | | results section. | + +--------+ + + + | LACTIC ACID | STAT | 10/31/2016 | | Results for this | | | | 7:57 PM | | procedure are in the | | | | PDT | | results section. | + +--------+ + + + | AMYLASE | STAT | 10/31/2016 | | Results for this | | | | 7:57 PM | | procedure are in the | | | | PDT | | results section. | + +--------+ + + + | ALCOHOL | STAT | 10/31/2016 | | Results for this | | | | 7:57 PM | | procedure are in the | | | | PDT | | results section. | + +--------+ + + + | ACETAMINOPHEN LEVEL | STAT | 10/31/2016 | | Results for this | | | | 7:57 PM | | procedure are in the | | | | PDT | | results section. | + +--------+ + + + | SALICYLATE LEVEL | STAT | 10/31/2016 | | Results for this | | | | 7:57 PM | | procedure are in the | | | | PDT | | results section. | + +--------+ + + + | COMPREHENSIVE | STAT | 10/31/2016 | | Results for this | | METABOLIC PANEL | | 7:57 PM | | procedure are in the | | | | PDT | | results section. | + +--------+ + + + | LABS - EXTERNAL SCAN | | 10/31/2016 | | Results for this | | | | 12:00 AM | | procedure are in the | | | | PDT | | results section. | + +--------+ + + + documented in this encounter Results Phosphorus (11/07/2016 1:24 PM PDT) + +---------+ + + + | Component | Value | Ref Range | Performed | Pathologist | | | | | At | Signature | + +---------+ + + + | Phosphorus | 5.1 (H) | 2.5 - 4.6 mg/dL | [facility] | | | | [...] + | [facility] | [address] | [place] | [phone] | | [facility] | | [address] | | | - LABORATORY | | | | + + + + + Magnesium (11/07/2016 1:24 PM PDT) + +-------+ + + + | Component | Value | Ref Range | Performed | Pathologist | | | | | At | Signature | + +-------+ + + + | Magnesium | 1.8 | 1.8 - 2.5 mg/dL | [facility] [...] + | [facility] | [address] | [place], [place] | [phone] | | [facility] | | [address] | | | - LABORATORY | | | | + + + + + Basic Metabolic Panel (11/07/2016 1:24 PM PDT) + + + + + + | Component | Value | Ref Range | Performed | Pathologist | | | | | At | Signature | + + + + + + | Na | 127 (L) | 136 - 149 | [facility] | | | | | mmol/L | [facility] | | | | | | [facility] | | | | | | CENTER - | | | | | | LABORATORY | | + + + + + + | K | 4.1 | 3.5 - 5.1 | [facility] | [...] + + + + | Glucose | 99 | 70 - 109 mg/dL | [facility] [...] + + + + | Creatinine | 0.66 | 0.60 - 1.30 | [facility] | [...] mL/min/1.73m2 | [facility] | | | [place] | RATE,ESTIMATED | | MEDICAL | | | | mL/min/1.97b3Lbqe than | | CENTER - | | [...] + + + | Calcium | 8.0 (L) | 8.3 - 10.5 | [facility] | | | | | mg/dL | [facility] | | | | | | [facility]ICAL | | | | | | CENTER - | | | | | | LABORATORY | | + + + + + + | BUN/Creatin | 9.1 | | [facility] | | | ine [...] [address] | [place] | [phone] | | [facility] | | [address] | | | - LABORATORY | | | | + + + + + Magnesium (11/07/2016 2:11 AM PDT) + +---------+ + + + | Component | Value | Ref Range | Performed | Pathologist | | | | | At | Signature | + +---------+ + + + | Magnesium | 1.6 (L) | 1.8 - 2.5 mg/dL | [facility] | | | | | | [facility] + | [facility] | [address] | [place] | [phone] | | [facility] | | [address] | | | - LABORATORY | | | | + + + + + Urinalysis with Microscopic with Culture if Indicated (11/06/2016 2:48 PM PDT) + + + + + [...] - 1.030 | [facility] | | | [place], | | | [facility] | | [...] + + + + | Blood, | Small (A) | Negative | [facility] [...] + + + + | Squamous | 10-15 (A) | 0 - 2 /LPF | [...] | Specimen | + + | Urine | + + + + + + + | Performing | Address | City/State/Zipcode | Phone Number | | Organization | | | | + + + + + | [facility] | [address] | [place] | [phone] | | [facility] | | [address] | | | - LABORATORY | | | | + + + + + XR Chest AP Portable (11/06/2016 8:53 AM PDT) + + | Specimen | + + | | + + + + + | Narrative | Performed At | + + + | XR CHEST AP PORTABLE 11/06/2016 8:53 AM HISTORY: Wheezing, fever, | [facility] | | evaluate for pneumonia. COMPARISON: Multiple priors. | | | Findings: There is a right PICC line with tip in the upper SVC. The | | | heart is enlarged. Aorta is normal. Mediastinum is unremarkable. | | | There is prominence of the pulmonary vasculature with cephalization. | | | There is improved mild atelectasis in the right lung base. Improved | | | mild atelectasis is in the left perihilar region. Moderate elevation | | | of the right hemidiaphragm is seen. There is lumbar fusion hardware. | | | IMPRESSION - Right PICC line with tip in in the upper SVC. | | | Improved mild atelectasis in right lung base left perihilar region. | | | Prominence of central pulmonary vasculature with cephalization that | | | can be seen with fluid overload. Cardiomegaly. Dictated and | | | Signed by: Austin Crane MD Electronically signed: 11/06/2016 9:02 | | | AM | | + + + + + | Procedure Note | + + | Jermaine, Rad Results In - 11/06/2016 9:05 AM PDT XR CHEST AP PORTABLE 11/06/2016 8:53 AM | | | | HISTORY: Wheezing, fever, evaluate for pneumonia. | | | | COMPARISON: Multiple priors. | | | | Findings: | | There is a right PICC line with tip in the upper SVC. The heart is enlarged. | | Aorta is normal. Mediastinum is unremarkable. There is prominence of the | | pulmonary vasculature with cephalization. There is improved mild atelectasis in | | the right lung base. Improved mild atelectasis is in the left perihilar region. | | Moderate elevation of the right hemidiaphragm is seen. There is lumbar fusion | | hardware. | | | | IMPRESSION - | | Right PICC line with tip in in the upper SVC. | | | | Improved mild atelectasis in right lung base left perihilar region. | | | | Prominence of central pulmonary vasculature with cephalization that can be seen | | with fluid overload. | | | | Cardiomegaly. | | | | Dictated and Signed by: Austin Crane MD | | Electronically signed: 11/06/2016 9:02 AM | + + + +---------+ + + | Performing | Address | City/State/Zipcode | Phone Number | | Organization | | | | + +---------+ + + | [facility] | | | | + +---------+ + + Phosphorus (11/06/2016 4:31 AM PDT) + +-------+ + + + | Component | Value | Ref Range | Performed | Pathologist | | | | | At | Signature | + +-------+ + + + | Phosphorus | 4.0 | 2.5 - 4.6 mg/dL | [facility] | | | | [...] + | [facility] | [address] | [place] | [phone] | | [facility] | | [address] | | | - LABORATORY | | | | + + + + + Magnesium (11/06/2016 4:31 AM PDT) + +---------+ + + + | Component | Value | Ref Range | Performed | Pathologist | | | | | At | Signature | + +---------+ + + + | Magnesium | 1.1 (L) | 1.8 - 2.5 mg/dL | [facility] | | | | | | [facility] [address] | [place] | [phone] | | [facility] | | [address] | | | - LABORATORY | | | | + + + + + CBC with Differential (11/06/2016 4:31 AM PDT) + + + + + + | Component | Value | Ref Range | Performed | Pathologist | | | | | At | Signature | + + + + + + | White Blood | 5.9 | 4.0 - 11.0 K/uL | [facility] | | | Cells | | | [facility] | | | | | | MEDICAL | | | | | | CENTER - | | | | | | LABORATORY | | + + + + + + | Red Blood | 2.86 (L) | 3.70 - 5.20 | [facility] | | | Cells | | M/uL | [facility] | | | | | | MEDICAL | | | | | | CENTER - | | | | | | LABORATORY | | + + + + + + | Hemoglobin | 9.2 (L) | 11.5 - 16.0 | [facility] | | | | | g/dL | [facility] | | | | | | [facility]ICAL | | | | | | CENTER - | | | | | | LABORATORY | | + + + + + + | Hematocrit | 27.4 (L) | 34.0 - 47.0 % | [facility] | | | | | | [facility] | | | | | | MEDICAL | | | | | | CENTER - | | | | | | LABORATORY | | + + + + + + | MCV | 95.7 | 83.0 - 101.0 fL | [facility] [...] + + + + | MCHC | 33.5 | 32.0 - 36.0 | [facility] | | | | | g/dL | [facility] | | | | | | MEDICAL | | | | | | CENTER - | | | | | | LABORATORY | | + + + + + + | RDW-CV | 15.1 (H) | <15.0 % | [facility] | | | | | | [facility] | | | | | | MEDICAL | | | | | | CENTER - | | | | | | LABORATORY | | + + + + + + | Platelet | 142 | 140 - 440 K/uL | [facility] [...] + + + + | % | 57.2 | 45.0 - 82.0 % | [facility] | | | Neutrophils | | | [facility] | | | | | | MEDICAL | | | | | | CENTER - | | | | | | LABORATORY | | + + + + + + | % | 12.9 (L) | 20.0 - 45.0 % | [facility] | | | Lymphocytes | | | [facility] | | | | | | MEDICAL | | | | | | CENTER - | | | | | | LABORATORY | | + + + + + + | % Monocytes | 21.2 (H) | 4.0 - 12.0 % | [facility] | | | | | | [facility] | | | | | | MEDICAL | | | | | | CENTER - | | | | | | LABORATORY | | + + + + + + | % | 7.2 (H) | 0.0 - 5.0 % | [facility] | | | Eosinophils | | | [facility] | | | | | | MEDICAL | | | | | | CENTER - | | | | | | LABORATORY | | + + + + + + | % Basophils | 1.5 (H) | 0.0 - 1.0 % | [...] + + + + | Absolute | 1.30 (H) | 0.00 - 1.00 | [facility] | [address] | [place], [place] | [phone] | | [facility] | | [address] | | | - LABORATORY | | | | + + + + + Comprehensive Metabolic Panel (11/06/2016 4:31 AM PDT) + + + + + [...] + + + + | Glucose | 101 | 70 - 109 mg/dL | [facility] [...] + + + + | Creatinine | 0.70 | 0.60 - 1.30 | [facility] | [...] mL/min/1.73m2 | [facility] | | | [place] | RATE,ESTIMATED | | MEDICAL | | | | mL/min/1.70c4Btxz than | | CENTER - | | [...] + + + + | Total | 5.3 (L) | 6.0 - 7.8 g/dL | [facility] | | | Protein | | | [facility] | [facility] | | | | | | [facility] - | | | | | | LABORATORY | | + + + + + + | AST | 29 | 10 - 42 U/L | [facility] | | | | | | [facility] | [facility] | [facility] | | | | | | C[facility] - | | | | | | LABORATORY | | + + + + + + | ALT | 13 | 6 - 45 U/L | [facility] | | | | | | [facility] | [facility] | | | | | | C[facility] - | | | | | | LABORATORY | | + + + + + + | Alkaline | 108 | 40 - 110 U/L | [facility] [...] + + + + | BUN/Creatin | 5.7 | | [facility] | | | ine [...] [address] | [place] | [phone] | | [facility] | | [address] | | | - LABORATORY | | | | + + + + + Magnesium (11/05/2016 5:01 AM PDT) + +---------+ + + + [...] [address] | [place] | [phone] | | [facility] | | [address] | | | - LABORATORY | | | | + + + + + CBC with Differential (11/05/2016 5:01 AM PDT) + + + + + + | Component | Value | Ref Range | Performed | Pathologist | | | | | At | Signature | + + + + + + | White Blood | 4.4 | 4.0 - 11.0 K/uL | [facility] | | | Cells | | | [facility] | | | | | | [facility] | | | | | | CENTER - | | | | | | LABORATORY | | + + + + + + | Red Blood | 2.65 (L) | 3.70 - 5.20 | [facility] [...] + + + + | Hematocrit | 25.4 (L) | 34.0 - 47.0 % | [facility] | | | | | | [facility] | | [facility] | [facility] | | | | | | CENTER - | | | | | | LABORATORY | | + + + + + + | MCV | 96.0 | 83.0 - 101.0 fL | [facility] | | | | | | [facility] | | [facility] | [facility] | | | | | | CENTER - | | | | | | LABORATORY | | + + + + + + | MCH | 32.0 | 28.0 - 35.0 pg | [facility] | | | | | | [facility] | | | | | | [facility] | | | | | | CENTER - | | | | | | LABORATORY | | + + + + + + | MCHC | 33.3 | 32.0 - 36.0 | [facility] | | | | | g/dL | [facility] | | | | | | [facility] | | | | | | CENTER - | | | | | | LABORATORY | | + + + + + + | RDW-CV | 15.5 (H) | <15.0 % | [facility] | | | | | | [facility] | | | | | | [facility] | | | | | | CENTER - | | | | | | LABORATORY | | + + + + + + | Platelet | 116 (L) | 140 - 440 K/uL | [...] + + + + | % | 50.6 | 45.0 - 82.0 % | [facility] | | | Neutrophils | | | [facility] | | | | | | MEDICAL | | | | | | CENTER - | | | | | | LABORATORY | | + + + + + + | % | 13.3 (L) | 20.0 - 45.0 % | [facility] | | | Lymphocytes | | | [facility] | | | | | | MEDICAL | | | | | | CENTER - | | | | | | LABORATORY | | + + + + + + | % Monocytes | 24.5 (H) | 4.0 - 12.0 % | [facility] | | | | | | [facility] | | | | | | [facility] | | | | | | CENTER - | | | | | | LABORATORY | | + + + + + + | % | 8.2 (H) | 0.0 - 5.0 % | [facility] | | | Eosinophils | | | [facility] | | | | | | MEDICAL | | | | | | CENTER - | | | | | | LABORATORY | | + + + + + + | % Basophils | 3.4 (H) | 0.0 - 1.0 % | [...] | | Basophils | | K/uL | [facility] | | | | | [...] [address] | [place] | [phone] | | [facility] | | [address] | | | - LABORATORY | | | | + + + + + Comprehensive Metabolic Panel (11/05/2016 5:01 AM PDT) + + + + + [...] + + + + | Glucose | 100 | 70 - 109 mg/dL | [facility] | | | | | | [facility] | | [facility] | [facility] | | | | | | CENTER - | | | | | | LABORATORY | | + + + + + + | BUN | 7 | 7 - 18 mg/dL | [facility] | | | | | | [facility] | [facility] | [facility] | [facility] | | | | | | CENTER - | | | | | | LABORATORY | | + + + + + + | Creatinine | 0.71 | 0.60 - 1.30 | [facility] | | | | | mg/dL | [facility] | | [facility] | [facility] | | | | | | CENTER - | | | | | | LABORATORY | | + + + + + + | eGFR, | >60Comment: GLOMERULAR | >=60 | [facility] | | | non- | FILTRATION | mL/min/1.73m2 | [facility] | | | [place] | RATE,ESTIMATED | | MEDICAL | | | | mL/min/1.81y3Dazc than | | CENTER - | | [...] + + + + | Calcium | 7.5 (L) | 8.3 - 10.5 | [facility] [...] + + + + | Bilirubin | 0.7 | 0.1 - 1.5 mg/dL | [facility] | | | Total | | | [facility] | | | | | | MEDICAL | | | | | | CENTER - | | | | | | LABORATORY | | + + + + + + | Total | 5.0 (L) | 6.0 - 7.8 g/dL | [facility] | | | Protein | | | [facility] | | | | | | MEDICAL | | | | | | CENTER - | | | | | | LABORATORY | | + + + + + + | AST | 28 | 10 - 42 U/L | [facility] [...] + + + + | Globulin | 3.6 | 2.1 - 3.8 g/dL | [facility] [...] + + + + | BUN/Creatin | 9.9 | | [facility] | | | ine [...] [address] | [place] | [phone] | | [facility] | | [address] | | | - LABORATORY | | | | + + + + + Protime INR (11/04/2016 6:50 AM PDT) + + + + + + | Component | Value | Ref Range | Performed | Pathologist | | | | | At | Signature | + + + + + + | Prothrombin | 16.9 (H) | 11.3 - 13.9 | [facility] | | | Time | | seconds | [facility] | | | | | [facility] | | | | | | CENTER - | | | | | | LABORATORY | | + + + + + + | INR | 1.34 (H)Comment: Usual | 0.90 - 1.10 | [...] [address] | [place] | [phone] | | [facility] | | [address] | | | - LABORATORY | | | | + + + + + Magnesium (11/04/2016 3:56 AM PDT) + +---------+ + + + | Component | Value | Ref Range | Performed | Pathologist | | | | | At | Signature | + +---------+ + + + | Magnesium | 1.6 (L) | 1.8 - 2.5 mg/dL | [facility] | | | | | | [facility] [...] [address] | [place] | [phone] | | [facility] | | [address] | | | - LABORATORY | | | | + + + + + CBC with Differential (11/04/2016 3:56 AM PDT) + + + + + [...] + + + | Red Blood | 2.60 (L) | 3.70 - 5.20 | [facility] [...] + + + + | MCV | 96.2 | 83.0 - 101.0 fL | [facility] [...] + + + + | MCHC | 33.6 | 32.0 - 36.0 | [facility] | | | | | g/dL | [facility] | | | | | | [facility]ICAL | | | | | | CENTER - | | | | | | LABORATORY | | + + + + + + | RDW-CV | 15.2 (H) | <15.0 % | [facility] | | | | | | [facility] | | | | | | MEDICAL | | | | | | CENTER - | | | | | | LABORATORY | | + + + + + + | Platelet | 91 (L) | 140 - 440 K/uL | [facility] | | | Count | | | [facility] | | | | | | MEDICAL | | | | | | CENTER - | | | | | | LABORATORY | | + + + + + + | MPV | 8.4 | fL | [facility] | | | | | | [facility] | | | | | | MEDICAL | | | | | | CENTER - | | | | | | LABORATORY | | + + + + + + | % | 60.0 | 45.0 - 82.0 % | [facility] | | | Neutrophils | | | [facility] | | | | | | MEDICAL | | | | | | CENTER - | | | | | | LABORATORY | | + + + + + + | % | 10.5 (L) | 20.0 - 45.0 % | [facility] | | | Lymphocytes | | | [facility] | | | | | | MEDICAL | | | | | | CENTER - | | | | | | LABORATORY | | + + + + + + | % Monocytes | 16.8 (H) | 4.0 - 12.0 % | [facility] | | | | | | [facility] | | | | | | MEDICAL | | | | | | CENTER - | | | | | | LABORATORY | | + + + + + + | % | 9.5 (H) | 0.0 - 5.0 % | [facility] | | | Eosinophils | | | [facility] | | | | | | MEDICAL | | | | | | CENTER - | | | | | | LABORATORY | | + + + + + + | % Basophils | 3.2 (H) | 0.0 - 1.0 % | [...] | 0.10 | 0.00 - 0.10 | [facility] | | | Basophils | | K/uL [...] [address] | [place] | [phone] | | [facility] | | [address] | | | - LABORATORY | | | | + + + + + Comprehensive Metabolic Panel (11/04/2016 3:56 AM PDT) + + + + + + | Component | Value | Ref Range | Performed | Pathologist | | | | | At | Signature | + + + + + + | Na | 134 (L) | 136 - 149 | [facility] [...] + + + + | CO2 | 24 | 24 - 31 mmol/L | [facility] [...] + + + + | Glucose | 96 | 70 - 109 mg/dL | [facility] | | | | | | [facility] | | | | | | MEDICAL | | | | | | CENTER - | | | | | | LABORATORY | | + + + + + + | BUN | 8 | 7 - 18 mg/dL | [facility] | | | | | | [facility] | | | | | | [facility] | | | | | | CENTER - | | | | | | LABORATORY | | + + + + + + | Creatinine | 0.73 | 0.60 - 1.30 | [facility] | [facility] | | | | | | [facility]ICAL | | | | | | CENTER - | | | | | | LABORATORY | | + + + + + + | eGFR, | >60Comment: GLOMERULAR | >=60 | [facility] | | | non- | FILTRATION | mL/min/1.73m2 | [facility] | | | [place] | RATE,ESTIMATED | | MEDICAL | | | | mL/min/1.32z1Jyoj than | | CENTER - | | [...] + + + + | Total | 5.0 (L) | 6.0 - 7.8 g/dL | [facility] | | | Protein | | | [facility] | | | | | | MEDICAL | | | | | | CENTER - | | | | | | LABORATORY | | + + + + + + | AST | 29 | 10 - 42 U/L | [facility] [...] + + + + | Globulin | 3.6 | 2.1 - 3.8 g/dL | [facility] [...] + + + + | BUN/Creatin | 11.0 | | [facility] | | | ine [...] + | [facility] | [address] | [place], [place] | [phone] | | [facility] | | [address] | | | - LABORATORY | | | | + + + + + XR Chest AP Portable (11/03/2016 10:58 AM PDT) + + | Specimen | + + | | + + + + + | Narrative | Performed At | + + + | EXAM: XR CHEST AP PORTABLE dated 11/03/2016 10:58 AM HISTORY: | [facility] | | PICC tip position Comparison: None. TECHNIQUE: A single | | | portable view of the chest. FINDINGS: The PICC line has been | | | repositioned. The catheter tip is now directed towards the heart. | | | The tip is in the mid superior vena cava. Bilateral parenchymal | | | opacities are persistent and not significantly changed. The cardiac | | | and mediastinal contours are stable. No pneumothorax. The osseous | | | structures are stable. IMPRESSION - Right PICC line tip now | | | within the mid superior vena cava. Dictated and Signed by: Hakeem Osullivan | | | MD Dharmesh Electronically signed: 11/03/2016 11:21 AM | | + + + + + | Procedure Note | + + | Jermaine, Rad Results In - 11/03/2016 11:24 AM PDT EXAM: XR CHEST AP PORTABLE dated | | 11/03/2016 10:58 AMHISTORY: PICC tip positionComparison: None.TECHNIQUE: A single | | portable view of the chest.FINDINGS:The PICC line has been repositioned. The catheter | | tip is now directed towardsthe heart. The tip is in the mid superior vena cava. | | Bilateral parenchymalopacities are persistent and not significantly changed. The | | cardiac andmediastinal contours are stable. No pneumothorax. The osseous structures | | arestable.IMPRESSION -Right PICC line tip now within the mid superior vena cava.Dictated | | and Signed by: Hakeem Barroso MD Electronically signed: 11/03/2016 11:21 AM | |FINDINGS: | | | |The PICC line has been repositioned. The catheter tip is now directed towards | |the heart. The tip is in the mid superior vena cava. Bilateral parenchymal | |opacities are persistent and not significantly changed. The cardiac and | |mediastinal contours are stable. No pneumothorax. The osseous structures are | |stable. | | | |IMPRESSION - | | | |Right PICC line tip now within the mid superior vena cava. | | | |Dictated and Signed by: Hakeem Barroso MD | | Electronically signed: 11/03/2016 11:21 AM | + + + +---------+ + + | Performing | Address | City/State/Zipcode | Phone Number | | Organization | | | | + +---------+ + + | [facility] | | | | + +---------+ + + CK Total (11/03/2016 3:40 AM PDT) + +-------+ + + + | Component | Value | Ref Range | Performed | Pathologist | | | | | At | Signature | + +-------+ + + + | CK TOTAL | 97 | 22 - 269 U/L | [facility] | | | | | [...] [address] | [place] | [phone] | | [facility] | | [address] | | | - LABORATORY | | | | + + + + + Magnesium (11/03/2016 3:40 AM PDT) + +-------+ + + + | Component | Value | Ref Range | Performed | Pathologist | | | | | At | Signature | + +-------+ + + + | Magnesium | 1.9 | 1.8 - 2.5 mg/dL | [facility] [...] [address] | [place] | [phone] | | [facility] | | [address] | | | - LABORATORY | | | | + + + + + CBC with Differential (11/03/2016 3:40 AM PDT) + + + + + + | Component | Value | Ref Range | Performed | Pathologist | | | | | At | Signature | + + + + + + | White Blood | 7.0 | 4.0 - 11.0 K/uL | [facility] [...] + + + | Hemoglobin | 8.9 (L) | 11.5 - 16.0 | [facility] | | | | | g/dL | [facility] | | | | | | MEDICAL | | | | | | CENTER - | | | | | | LABORATORY | | + + + + + + | Hematocrit | 26.3 (L) | 34.0 - 47.0 % | [facility] | | | | | | [facility] | | | | | | MEDICAL | | | | | | CENTER - | | | | | | LABORATORY | | + + + + + + | MCV | 96.1 | 83.0 - 101.0 fL | [facility] | | | | | | [facility] | | | | | | MEDICAL | | | | | | CENTER - | | | | | | LABORATORY | | + + + + + + | MCH | 32.7 | 28.0 - 35.0 pg | [facility] | | | | | | [facility] | | | | | | MEDICAL | | | | | | CENTER - | | | | | | LABORATORY | | + + + + + + | MCHC | 34.0 | 32.0 - 36.0 | [facility] | | | | | g/dL | [facility] | | | | | | MEDICAL | | | | | | CENTER - | | | | | | LABORATORY | | + + + + + + | RDW-CV | 15.1 (H) | <15.0 % | [facility] | | | | | | [facility] | | | | | | MEDICAL | | | | | | CENTER - | | | | | | LABORATORY | | + + + + + + | Platelet | 85 (L) | 140 - 440 K/uL | [facility] | | | Count | | | [facility] | | | | | | MEDICAL | | | | | | CENTER - | | | | | | LABORATORY | | + + + + + + | MPV | 8.6 | fL | [facility] | | | | | | [facility] | | | | | | MEDICAL | | | | | | CENTER - | | | | | | LABORATORY | | + + + + + + | % | 75.7 | 45.0 - 82.0 % | [facility] | | | Neutrophils | | | [facility] | | | | | | MEDICAL | | | | | | CENTER - | | | | | | LABORATORY | | + + + + + + | % | 7.1 (L) | 20.0 - 45.0 % | [facility] | | | Lymphocytes | | | [facility] | | | | | | MEDICAL | | | | | | CENTER - | | | | | | LABORATORY | | + + + + + + | % Monocytes | 12.0 | 4.0 - 12.0 % | [facility] | | | | | | [facility] | | | | | | MEDICAL | | | | | | CENTER - | | | | | | LABORATORY | | + + + + + + | % | 4.6 | 0.0 - 5.0 % | [facility] | | | Eosinophils | | | [facility] | | | | | | MEDICAL | | | | | | CENTER - | | | | | | LABORATORY | | + + + + + + | % Basophils | 0.6 | 0.0 - 1.0 % | [facility] | | | | | | [facility] | | | | | | MEDICAL | | | | | | CENTER - | | | | | | LABORATORY | | + + + + + + | Absolute | 5.30 | 1.80 - 8.50 | [facility] | [...] [address] | [place] | [phone] | | [facility] | | [address] | | | - LABORATORY | | | | + + + + + Comprehensive Metabolic Panel (11/03/2016 3:40 AM PDT) + + + + + + | Component | Value | Ref Range | Performed | Pathologist | | | | | At | Signature | + + + + + + | Na | 137 | 136 - 149 | [facility] | | | | | mmol/L | [facility] | | | | | | MEDICAL | | | | | | CENTER - | | | | | | LABORATORY | | + + + + + + | K | 4.1 | 3.5 - 5.1 | [facility] | | | | | mmol/L | [facility] | | | | | | MEDICAL | | | | | | CENTER - | | | | | | LABORATORY | | + + + + + + | Cl | 108 | 98 - 109 mmol/L | [facility] [...] | | | | | | [facility] | | | | | | MEDICAL | | | | | | CENTER - | | | | | | LABORATORY | | + + + + + + | Glucose | 101 | 70 - 109 mg/dL | [facility] | | | | | | [facility] | | | | | | [facility] | | | | | | CENTER - | | | | | | LABORATORY | | + + + + + + | BUN | 7 | 7 - 18 mg/dL | [facility] | | | | | | [facility] | | | | | | MEDICAL | | | | | | CENTER - | | | | | | LABORATORY | | + + + + + + | Creatinine | 0.67 | 0.60 - 1.30 | [facility] | | | | | mg/dL | [facility] | | | | | | MEDICAL | | | | | | CENTER - | | | | | | LABORATORY | | + + + + + + | eGFR, | >60Comment: GLOMERULAR | >=60 | [facility] | | | non- | FILTRATION | mL/min/1.73m2 | [facility] | | | [place] | RATE,ESTIMATED | | MEDICAL | | | | mL/min/1.58n0Bvco than | | CENTER - | | [...] + + + + | Bilirubin | 1.1 | 0.1 - 1.5 mg/dL | [facility] | | | Total | | | [facility] | | | | | | MEDICAL | | | | | | CENTER - | | | | | | LABORATORY | | + + + + + + | Total | 4.8 (L) | 6.0 - 7.8 g/dL | [facility] | | | Protein | | | [facility] | | | | | | MEDICAL | | | | | | CENTER - | | | | | | LABORATORY | | + + + + + + | AST | 35 | 10 - 42 U/L | [facility] [...] + + + + | Alkaline | 85 | 40 - 110 U/L | [facility] [...] + + + + | BUN/Creatin | 10.4 | | [facility] | | | ine [...] [address] | [place] | [phone] | | [facility] | | [address] | | | - LABORATORY | | | | + + + + + Magnesium (11/02/2016 3:30 PM PDT) + +---------+ + + + | Component | Value | Ref Range | Performed | Pathologist | | | | | At | Signature | + +---------+ + + + | Magnesium | 1.6 (L) | 1.8 - 2.5 mg/dL | [facility] | | | | | | [facility] | [address] | [place], [place] | [phone] | | [facility] | | [address] | | | - LABORATORY | | | | + + + + + Basic Metabolic Panel (11/02/2016 3:30 PM PDT) + + + + + + | Component | Value | Ref Range | Performed | Pathologist | | | | | At | Signature | + + + + + + | Na | 133 (L) | 136 - 149 | [facility] [...] + + + + | Glucose | 120 (H) | 70 - 109 mg/dL | [facility] | | | | | | [facility] | | | | | | MEDICAL | | | | | | CENTER - | | | | | | LABORATORY | | + + + + + + | BUN | 6 (L) | 7 - 18 mg/dL | [facility] | | | | | | [facility] | | | | | | MEDICAL | | | | | | CENTER - | | | | | | LABORATORY | | + + + + + + | Creatinine | 0.57 (L) | 0.60 - 1.30 | [facility] | | | | | mg/dL | [facility] | | | | | | MEDICAL | | | | | | CENTER - | | | | | | LABORATORY | | + + + + + + | eGFR, | >60Comment: GLOMERULAR | >=60 | [facility] | | | non- | FILTRATION | mL/min/1.73m2 | [facility] | | | [place] | RATE,ESTIMATED | | MEDICAL | | | | mL/min/1.66i1Ypdd than | | CENTER - | | [...] + + + + | BUN/Creatin | 10.5 | | [facility] | | | ine [...] | + + + + + | [facility] | [address] | [place] | [phone] | | [facility] | | [address] | | | - LABORATORY | | | | + + + + + XR Chest AP Portable (11/02/2016 6:04 AM PDT) + + | Specimen | + + | | + + + + + | Narrative | Performed At | + + + | EXAM: XR CHEST AP PORTABLE dated 11/02/2016 6:03 AM HISTORY: | [facility] | | dyspnea, tachypnea Comparison: Chest x-rays dating to October 31 | | | 2017 TECHNIQUE: A single portable view of the chest. FINDINGS: | | | The right approach PICC line catheter is directed into the | | | internal jugular vein. Lung volumes are low bilaterally. This | | | results in bronchovascular crowding. It also accentuates bilateral | | | lower lobe parenchymal opacities. Stable cardiac and mediastinal | | | contours. IMPRESSION - The right approach PICC line catheter | | | is directed into the right internal jugular vein. Persistent | | | bilateral airspace opacities. The case was discussed with | | | Jakub Chun at 8:30 on the morning of the exam. Dictated and | | | Signed by: Hakeem Barroso MD Electronically signed: 11/02/2016 | | | 8:34 AM | | + + + + + | Procedure Note | + + | Jermaine, Rad Results In - 11/02/2016 8:37 AM PDT EXAM: XR CHEST AP PORTABLE dated | | 11/02/2016 6:03 AMHISTORY: dyspnea, tachypneaComparison: Chest x-rays dating to October 31 | | 2016TECHNIQUE: A single portable view of the chest.FINDINGS:The right approach PICC line | | catheter is directed into the internal jugularvein. Lung volumes are low bilaterally. | | This results in bronchovascularcrowding. It also accentuates bilateral lower lobe | | parenchymal opacities. Stable cardiac and mediastinal contours. IMPRESSION -The right | | approach PICC line catheter is directed into the right internaljugular vein.Persistent | | bilateral airspace opacities.The case was discussed with Dr. Jakub Chun at 8:30 on | | the morning of theexam.Dictated and Signed by: Hakeem Barroso MD Electronically | | signed: 11/02/2016 8:34 AM | |The right approach PICC line catheter is directed into the internal jugular | |vein. Lung volumes are low bilaterally. This results in bronchovascular | |crowding. It also accentuates bilateral lower lobe parenchymal opacities. | |Stable cardiac and mediastinal contours. | | | |IMPRESSION - | | | |The right approach PICC line catheter is directed into the right internal | |jugular vein. | | | |Persistent bilateral airspace opacities. | | | |The case was discussed with Dr. Jakub Chun at 8:30 on the morning of the | |exam. | | | |Dictated and Signed by: Hakeem Barroso MD | | Electronically signed: 11/02/2016 8:34 AM | + + + +---------+ + + | Performing | Address | City/State/Zipcode | Phone Number | | Organization | | | | + +---------+ + + | [facility] | | | | + +---------+ + + Magnesium (11/02/2016 3:32 AM PDT) + +-------+ + + + | Component | Value | Ref Range | Performed | Pathologist | | | | | At | Signature | + +-------+ + + + | Magnesium | 1.9 | 1.8 - 2.5 mg/dL | [facility] | | | | | | [facility] [address] | [place] | [phone] | | [facility] | | [address] | | | - LABORATORY | | | | + + + + + CBC with Differential (11/02/2016 3:32 AM PDT) + + + + + + | Component | Value | Ref Range | Performed | Pathologist | | | | | At | Signature | + + + + + + | White Blood | 9.1 | 4.0 - 11.0 K/uL | [facility] | | | Cells | | | [facility] | | | | | | MEDICAL | | | | | | CENTER - | | | | | | LABORATORY | | + + + + + + | Red Blood | 2.94 (L) | 3.70 - 5.20 | [facility] | | | Cells | | M/uL | . [facility] | | | | | | MEDICAL | | | | | | CENTER - | | | | | | LABORATORY | | + + + + + + | Hemoglobin | 9.6 (L) | 11.5 - 16.0 | [facility] | | | | | g/dL | [facility] | | | | | | MEDICAL | | | | | | CENTER - | | | | | | LABORATORY | | + + + + + + | Hematocrit | 28.2 (L) | 34.0 - 47.0 % | [facility] | | | | | | [facility] | | | | | | MEDICAL | | | | | | CENTER - | | | | | | LABORATORY | | + + + + + + | MCV | 96.0 | 83.0 - 101.0 fL | [facility] | | | | | | [facility] | | | | | | MEDICAL | | | | | | CENTER - | | | | | | LABORATORY | | + + + + + + | MCH | 32.5 | 28.0 - 35.0 pg | [facility] [...] + + + + | RDW-CV | 14.7 | <15.0 % | [facility] | | | | | | [facility] | | | | | | MEDICAL | | | | | | CENTER - | | | | | | LABORATORY | | + + + + + + | Platelet | 83 (L) | 140 - 440 K/uL | [facility] | | | Count | | | [facility] | | | | | | [facility] | | | | | | CENTER - | | | | | | LABORATORY | | + + + + + + | MPV | 8.8 | fL | [facility] | | | | | | [facility] | | | | | | [facility] | | | | | | CENTER - | | | | | | LABORATORY | | + + + + + + | % | 84.8 (H) | 45.0 - 82.0 % | [facility] | | | Neutrophils | | | [facility] | | | | | | MEDICAL | | | | | | CENTER - | | | | | | LABORATORY | | + + + + + + | % | 4.0 (L) | 20.0 - 45.0 % | [facility] | | | Lymphocytes | | | [facility] | | | | | | [facility]ICAL | | | | | | CENTER - | | | | | | LABORATORY | | + + + + + + | % Monocytes | 9.1 | 4.0 - 12.0 % | [facility] | | | | | | [facility] | | | | | | [facility] | | | | | | CENTER - | | | | | | LABORATORY | | + + + + + + | % | 1.0 | 0.0 - 5.0 % | [facility] [...] + + + + | Absolute | 7.70 | 1.80 - 8.50 | [facility] | [...] | Absolute | 0.10 | 0.00 - 0.40 | [facility] | [...] [facility]. | [address] | [place] | [phone] | | [facility] | | [id number] | | | - LABORATORY | | | | + + + + + Comprehensive Metabolic Panel (11/02/2016 3:32 AM PDT) + + + + + [...] + + + | Anion Gap | 8 | 3 - 16 mmol/L | [facility] | | [facility] | | | [facility] | [facility] | | | | | | CENTER - | | | | | | LABORATORY | | + + + + + + | Glucose | 104 | 70 - 109 mg/dL | [facility] [...] + + + + | Creatinine | 0.45 (L) | 0.60 - 1.30 | [facility] | | | | | mg/dL | [facility] | | | | | | MEDICAL | | | | | | CENTER - | | | | | | LABORATORY | | + + + + + + | eGFR, | >60Comment: GLOMERULAR | >=60 | [facility] | | | non- | FILTRATION | mL/min/1.73m2 | [facility] | | | [place] | RATE,ESTIMATED | | MEDICAL | | | | mL/min/1.85p6Vqhz than | | CENTER - | | [...] + + + | Albumin | 1.5 (L) | 3.2 - 5.0 g/dL | [facility] | | | | | | MEDICAL | | | | | | CENTER - | | | | | | LABORATORY | | + + + + + + | Bilirubin | 1.6 (H) | 0.1 - 1.5 mg/dL | [...] + + + + | AST | 49 (H) | 10 - 42 U/L | [...] + + + + | Alkaline | 97 | 40 - 110 U/L | [facility] [...] + + + + | BUN/Creatin | 8.9 | | [facility] | | | ine [...] + | [facility] | [address] | [place] | [phone] | | [facility] | | [id number] | | | - LABORATORY | | | | + + + + + ECG 12 lead (11/01/2016 11:27 PM PDT) + + + + + + | Component | Value | Ref Range | Performed | Pathologist | | | | | At | Signature | + + + + + + | VENTRICULAR | 150 | BPM | [facility] | | | RATE EKG | | | | | + + + + + + | QRS | 86 | ms | [facility] | | | DURATION | | | | | + + + + + + | Q-T | 348 | ms | [facility] | | | INTERVAL | | | | | + + + + + + | Q-T | 549 | ms | [facility] | | | INTERVAL | | | | | | (CORRECTED) | | | | | + + + + + + | QRS AXIS | 6 | degrees | [facility] | | + + + + + + | T AXIS | 69 | degrees | [facility] | | + + + + + + | INTERPRETAT | Supraventricular | | [facility] | | | ION TEXT | tachycardiaLow voltage | | | | | | QRSNonspecific ST | | | | | | abnormality which may | | | | | | be secondary to rate | | | | | | and/or | | | | | | ischemia/infarctionAbnor | | | | | | mal ECGWhen compared | | | | | | with ECG of 31-OCT-2016 | | | | | | 20:27,Supraventricular | | | | | | tachycardia has replaced | | | | | | Sinus tachycardiaT wave | | | | | | amplitude has increased | | | | | | in Anterolateral | | | | | | leadsNonspecific ST | | | | | | abnormality is now | | | | | | presentConfirmed by | | | | | | PEPE HERNANDEZ MD ([id number]) | | | | | | on 11/02/2016 7:05:01 AM | | | | + + + + + + + + | Specimen | + + | | + + + + + | Narrative | Performed At | + + + | | | + + + + +---------+ + + | Performing | Address | City/State/Zipcode | Phone Number | | Organization | | | | + +---------+ + + | [facility] | | | | + +---------+ + + B Type Natriuretic Peptide (11/01/2016 11:27 PM PDT) + + + + + + | Component | Value | Ref Range | Performed | Pathologist | | | | | At | Signature | + + + + + + | BNP | 1,644 (H) | <100 pg/mL | [facility] | | | | | [...] [address] | [place] | [phone] | | [facility] | | [address] | | | - LABORATORY | | | | + + + + + Magnesium (11/01/2016 11:25 PM PDT) + +---------+ + + + [...] + | [facility] | [address] | [place] | [phone] | | [facility] | | [address] | | | - LABORATORY | | | | + + + + + Potassium (11/01/2016 11:25 PM PDT) + +-------+ + + + | Component | Value | Ref Range | Performed | Pathologist | | | | | At | Signature | + +-------+ + + + | K | 3.7 [...] + | [facility] | [address] | [place], [place] | [phone] | | [facility] | | [address] | | | - LABORATORY | | | | + + + + + XR Chest AP Portable (11/01/2016 5:04 PM PDT) + + | Specimen | + + | | + + + + + | Narrative | Performed At | + + + | XR CHEST AP PORTABLE 11/01/2016 5:04 PM HISTORY: PICC tip | [facility] | | placement AFTER pulled back 4 cm. COMPARISON: Multiple priors. | | | Findings: There is a right PICC line with tip in the upper SVC with | | | tip about 3.2 cm above the cavoatrial junction. The heart is | | | enlarged. Aorta is normal. Mediastinum is unremarkable. There is | | | prominence of the pulmonary vasculature with cephalization. There is | | | improved mild atelectasis in the right lung base. Stable moderate | | | atelectasis is in the left perihilar region. Moderate elevation of the | | | right hemidiaphragm is seen. There is lumbar fusion hardware. | | | IMPRESSION - Right PICC line with tip in in the upper SVC about 3.2 | | | cm above the cavoatrial junction. Improved mild atelectasis in | | | right lung base, stable moderate atelectasis in left perihilar | | | region. Prominence of central pulmonary vasculature with | | | cephalization that can be seen with fluid overload. Cardiomegaly. | | | Dictated and Signed by: Austin Crane MD Electronically | | | signed: 11/01/2016 5:13 PM | | + + + + + | Procedure Note | + + | Jermaine, Rad Results In - 11/01/2016 5:16 PM PDT XR CHEST AP PORTABLE 11/01/2016 5:04 PM | | | | HISTORY: PICC tip placement AFTER pulled back 4 cm. | | | | COMPARISON: Multiple priors. | | | | Findings: | | There is a right PICC line with tip in the upper SVC with tip about 3.2 cm above | | the cavoatrial junction. The heart is enlarged. Aorta is normal. Mediastinum is | | unremarkable. There is prominence of the pulmonary vasculature with | | cephalization. There is improved mild atelectasis in the right lung base. Stable | | moderate atelectasis is in the left perihilar region. Moderate elevation of the | | right hemidiaphragm is seen. There is lumbar fusion hardware. | | | | IMPRESSION - | | Right PICC line with tip in in the upper SVC about 3.2 cm above the cavoatrial | | junction. | | | | Improved mild atelectasis in right lung base, stable moderate atelectasis in | | left perihilar region. | | | | Prominence of central pulmonary vasculature with cephalization that can be seen | | with fluid overload. | | | | Cardiomegaly. | | | | Dictated and Signed by: Austin Crane MD | | Electronically signed: 11/01/2016 5:13 PM | + + + +---------+ + + | Performing | Address | City/State/Zipcode | Phone Number | | Organization | | | | + +---------+ + + | [facility] | | | | + +---------+ + + US Guided Paracentesis (11/01/2016 4:02 PM PDT) + + | Specimen | + + | | + + + + + | Narrative | Performed At | + + + | EXAM: Ultrasound guided paracentesis. CLINICAL INFORMATION: | [facility] | | Possible SBP, severe ascites COMPARISON: 09/03/2015 and sonogram | | | PROCEDURE: Informed consent was obtained and a final timeout was | | | performed. Preliminary ultrasound showed a peritoneal fluid | | | collection. The skin was marked and sterilely prepped and draped. 4 | | | mm Lidocaine 1% infiltrated into the subcutaneous soft tissues. A | | | small skin incision was made. 8 Gibraltarian paracentesis needle and sheath | | | was advanced under ultrasound guidance into the peritoneal fluid. | | | The needle was removed. The catheter was fixed to suction. | | | Aspirate: 5000 ml of cloudy serous fluid. 1000 mL of the aspirated | | | fluid was sent to the laboratory for further assessment. The | | | catheter was removed and a sterile dressing was place. The | | | patient tolerated procedure well without complication. FINDINGS: | | | Moderate ascites. IMPRESSION - Technically successful ultrasound | | | guided paracentesis. Dictated and Signed by: Andres Mancera MD | | | Electronically signed: 11/01/2016 4:19 PM | | + + + + + | Procedure Note | + + | Jermaine, Edgardo Results In - 11/01/2016 4:23 PM PDT | | EXAM: Ultrasound guided paracentesis. | | | | CLINICAL INFORMATION: Possible SBP, severe ascites | | | | COMPARISON: 09/03/2015 and sonogram | | | | PROCEDURE: | | Informed consent was obtained and a final timeout was performed. | | | | Preliminary ultrasound showed a peritoneal fluid collection. The skin was marked | | and sterilely prepped and draped. 4 mm Lidocaine 1% infiltrated into the | | subcutaneous soft tissues. A small skin incision was made. 8 Gibraltarian paracentesis | | needle and sheath was advanced under ultrasound guidance into the peritoneal | | fluid. The needle was removed. The catheter was fixed to suction. | | | | Aspirate: 5000 ml of cloudy serous fluid. 1000 mL of the aspirated fluid was | | sent to the laboratory for further assessment. | | | | The catheter was removed and a sterile dressing was place. | | | | The patient tolerated procedure well without complication. | | | | FINDINGS: Moderate ascites. | | | | IMPRESSION - Technically successful ultrasound guided paracentesis. | | | | Dictated and Signed by: Andres Mancera MD | | Electronically signed: 11/01/2016 4:19 PM | + + + +---------+ + + | Performing | Address | City/State/Zipcode | Phone Number | | Organization | | | | + +---------+ + + | [facility] | | | | + +---------+ + + Culture, Body Fluid, Anaerobe (11/01/2016 3:35 PM PDT) + + + + + [...] [address] | [place] | [phone] | | [facility] | | [address] | | | - LABORATORY | | | | + + + + + Culture, Body Fluid, Aerobe (11/01/2016 3:35 PM PDT) + + + + + + | Component | Value | Ref Range | Performed | Pathologist | | | | | At | Signature | + + + + + + | Culture | No Growth | | [facility] | | | | | | [facility] | | | | | [facility] | | | | | | CENTER - | | | | | | LABORATORY | | + + + + + + | Gram Stain | 2+ White Blood Cells | | [facility] | | | Result | | | [facility] | | | | | [facility] | | | | | | CENTER - | | | | | | LABORATORY | | + + + + + + | Gram Stain | 3+ Red blood cells | | [facility] | | | Result | | | [facility] | | | | | | [facility] | | | | | | CENTER - | | | | | | LABORATORY | | + + + + + + | Gram Stain | No organisms | | [facility] | | | Result | seenComment: Gram stain | | [facility] | | | | QC done | | MEDICAL | | | | [...] ST. | [address] | [place] | [phone] | | [facility] | | [address] | | | - LABORATORY | | | | + + + + + Protein, Body Fluid (11/01/2016 3:35 PM PDT) + + + + + + | Component | Value | Ref Range | Performed | Pathologist | | | | | At | Signature | + + + + + + | Protein, | 1.4 | g/dL | [facility] | | | [...] Specimen | + + | Body Fluid | + + + + + + + | Performing | Address | City/State/Zipcode | Phone Number | | Organization | | | | + + + + + | [facility] | [address] | [place] | [phone] | | [facility] | | [address] | | | - LABORATORY | | | | + + + + + Cell Count with Differential, Body Fluid (11/01/2016 3:35 PM PDT) + + + + + + | Component | Value | Ref Range | Performed | Pathologist | | | | | At | Signature | + + + + + + | Specimen | Ascites | | [facility] | | | Source | | | [facility] | | | | | [facility] | | | | | | CENTER - | | | | | | LABORATORY | | + + + + + + | Appearance, | Hazy (A) | Clear | [facility] | | | Body Fluid | | | [facility] | | | | | [facility] | | | | | | CENTER - | | | | | | LABORATORY | | + + + + + + | Nucleated | 96 | 0 - 150 | [facility] | | | Cells, Body | | cells/uL | [facility] | | | Fluid | | | MEDICAL | | | | | | CENTER - | | | | | | LABORATORY | | + + + + + + | Red Blood | 435 | cells/uL | [facility] | | | Cells, Body | | | [facility] | | | Fluid | | | MEDICAL | | | | | | CENTER - | | | | | | LABORATORY | | + + + + + + | % | 14 | % | [facility] | | | Neutrophils | | | [facility] | | | , Body | | | MEDICAL | | | Fluid | | | CENTER - | | | | | | LABORATORY | | + + + + + + | % | 18 | % | [facility] | | | Lymphocytes | | | [facility] | | | , Body | | | MEDICAL | | | Fluid | | | CENTER - | | | | | | LABORATORY | | + + + + + + | % | 68 | % | [facility] | | | [...] Specimen | + + | Body Fluid | + + + + + + + | Performing | Address | City/State/Zipcode | Phone Number | | Organization | | | | + + + + + | [facility] | [address] | [place] | [phone] | | [facility] | | [address] | | | - LABORATORY | | | | + + + + + Albumin, Body Fluid (11/01/2016 3:35 PM PDT) + + + + + + | Component | Value | Ref Range | Performed | Pathologist | | | | | At | Signature | + + + + + + | Albumin, | <1.0 [...] Specimen | + + | Body Fluid | + + + + + + + | Performing | Address | City/State/Zipcode | Phone Number | | Organization | | | | + + + + + | [facility] | [address] | [place], [place] | [phone] | | [facility] | | [address] | | | - LABORATORY | | | | + + + + + XR Chest AP Portable (11/01/2016 2:18 PM PDT) + + | Specimen | + + | | + + + + + | Narrative | Performed At | + + + | XR CHEST AP PORTABLE 11/01/2016 2:18 PM HISTORY: picc line tip | [facility] | | placement. COMPARISON: Multiple priors. Findings: There is | | | interval placement of a right PICC line with tip in the right atrium | | | about 4.0 cm below the cavoatrial junction. The heart is enlarged. | | | Aorta is normal. Mediastinum is unremarkable. There is prominence of | | | the pulmonary vasculature with cephalization. There is moderate | | | atelectasis in the right lung base. Evaluation for gas below the | | | right hemidiaphragm is limited due to the presence of the | | | atelectasis. Moderate elevation of the right hemidiaphragm is seen. | | | There is lumbar fusion hardware. IMPRESSION - Interval placement | | | of right PICC line with tip in right atrium about 4.0 cm below the | | | cavoatrial junction. Moderate atelectasis in right lung base. | | | Evaluation for gas below the right hemidiaphragm is limited due to | | | the presence of the atelectasis. A follow-up chest x-ray is | | | recommended for further evaluation. Prominence of central | | | pulmonary vasculature with cephalization that can be seen with fluid | | | overload. Cardiomegaly. These findings were called to the | | | covering nurse. Dictated and Signed by: Austin Crane MD | | | Electronically signed: 11/01/2016 2:35 PM | | + + + + + | Procedure Note | + + | Jermaine, Rad Results In - 11/01/2016 2:38 PM PDT XR CHEST AP PORTABLE 11/01/2016 2:18 PM | | | | HISTORY: picc line tip placement. | | | | COMPARISON: Multiple priors. | | | | Findings: | | There is interval placement of a right PICC line with tip in the right atrium | | about 4.0 cm below the cavoatrial junction. The heart is enlarged. Aorta is | | normal. Mediastinum is unremarkable. There is prominence of the pulmonary | | vasculature with cephalization. There is moderate atelectasis in the right lung | | base. Evaluation for gas below the right hemidiaphragm is limited due to the | | presence of the atelectasis. Moderate elevation of the right hemidiaphragm is | | seen. There is lumbar fusion hardware. | | | | IMPRESSION - | | Interval placement of right PICC line with tip in right atrium about 4.0 cm | | below the cavoatrial junction. | | | | Moderate atelectasis in right lung base. Evaluation for gas below the right | | hemidiaphragm is limited due to the presence of the atelectasis. A follow-up | | chest x-ray is recommended for further evaluation. | | | | Prominence of central pulmonary vasculature with cephalization that can be seen | | with fluid overload. | | | | Cardiomegaly. | | | | These findings were called to the covering nurse. | | | | Dictated and Signed by: Austin Crane MD | | Electronically signed: 11/01/2016 2:35 PM | + + + +---------+ + + | Performing | Address | City/State/Zipcode | Phone Number | | Organization | | | | + +---------+ + + | [facility] | | | | + +---------+ + + Magnesium (11/01/2016 1:05 PM PDT) + +-------+ + + + | Component | Value | Ref Range | Performed | Pathologist | | | | | At | Signature | + +-------+ + + + | Magnesium | 2.0 | 1.8 - 2.5 mg/dL | [facility] [...] [address] | [place] | [phone] | | [facility] | | [address] | | | - LABORATORY | | | | + + + + + Basic Metabolic Panel (11/01/2016 1:05 PM PDT) + + + + + [...] + + + + | K | 3.1 (L) | 3.5 - 5.1 | [facility] [...] + + + | Anion Gap | 8 | 3 - 16 mmol/L | [facility] | | | | | | [facility] | | | | | | MEDICAL | | | | | | CENTER - | | | | | | LABORATORY | | + + + + + + | Glucose | 111 (H) | 70 - 109 mg/dL | [facility] | | | | | | [facility] | | | | | | MEDICAL | | | | | | CENTER - | | | | | | LABORATORY | | + + + + + + | BUN | 4 (L) | 7 - 18 mg/dL | [facility] | | | | | | [facility] | | | | | | MEDICAL | | | | | | CENTER - | | | | | | LABORATORY | | + + + + + + | Creatinine | 0.51 (L) | 0.60 - 1.30 | [facility] | | | | | mg/dL | [facility] | | | | | | MEDICAL | | | | | | CENTER - | | | | | | LABORATORY | | + + + + + + | eGFR, | >60Comment: GLOMERULAR | >=60 | [facility] | | | non- | FILTRATION | mL/min/1.73m2 | [facility] | | | [place] | RATE,ESTIMATED | | MEDICAL | | | | mL/min/1.50t2Fhso than | | CENTER - | | [...] + + + + | BUN/Creatin | 7.8 | | [facility] | | | ine [...] ST. | [address] | [place], [place] | [phone] | | [facility] | | [address] | | | - LABORATORY | | | | + + + + + , Urine, Qual (11/01/2016 9:38 AM PDT) + + + + + [...] | Specimen | + + | Urine | + + + + + + + | Performing | Address | City/State/Zipcode | Phone Number | | Organization | | | | + + + + + | [facility] | [address] | [place], [place] | [phone] | | [facility] | | [address] | | | - LABORATORY | | | | + + + + + CK Total (11/01/2016 4:13 AM PDT) + +---------+ + + + | Component | Value | Ref Range | Performed | Pathologist | | | | | At | Signature | + +---------+ + + + | CK TOTAL | 325 (H) | 22 - 269 U/L | [facility] | | | | | [...] + + | [facility] | [address] | [place] | [phone] | | [facility] | | [address] | | | - LABORATORY | | | | + + + + + Phosphorus (11/01/2016 4:13 AM PDT) + +-------+ + + + | Component | Value | Ref Range | Performed | Pathologist | | | | | At | Signature | + +-------+ + + + | Phosphorus | 3.4 | 2.5 - 4.6 mg/dL | [facility] | | | | [...] + | [facility] | [address] | [place] | [phone] | | [facility] | | [address] | | | - LABORATORY | | | | + + + + + Magnesium (11/01/2016 4:13 AM PDT) + +---------+ + + + | Component | Value | Ref Range | Performed | Pathologist | | | | | At | Signature | + +---------+ + + + | Magnesium | 1.2 (L) | 1.8 - 2.5 mg/dL | [facility] | | | | | [...] + | [facility] | [address] | [place], [place] | [phone] | | [facility] | | [address] | | | - LABORATORY | | | | + + + + + CBC with Differential (11/01/2016 4:13 AM PDT) + + + + + + | Component | Value | Ref Range | Performed | Pathologist | | | | | At | Signature | + + + + + + | White Blood | 5.7 | 4.0 - 11.0 K/uL | [facility] | | | Cells | | | [facility] | | | | | | MEDICAL | | | | | | CENTER - | | | | | | LABORATORY | | + + + + + + | Red Blood | 3.18 (L) | 3.70 - 5.20 | [facility] | | | Cells | | M/uL | [facility] | | | | | | MEDICAL | | | | | | CENTER - | | | | | | LABORATORY | | + + + + + + | Hemoglobin | 10.2 (L) | 11.5 - 16.0 | [facility] | | | | | g/dL | [facility] | | | | | | MEDICAL | | | | | | CENTER - | | | | | | LABORATORY | | + + + + + + | Hematocrit | 29.9 (L) | 34.0 - 47.0 % | [facility] | | | | | | [facility] | | | | | | MEDICAL | | | | | | CENTER - | | | | | | LABORATORY | | + + + + + + | MCV | 94.1 | 83.0 - 101.0 fL | [facility] [...] + + + + | MCHC | 34.1 | 32.0 - 36.0 | [facility] | | | | | g/dL | [facility] | | | | | | MEDICAL | | | | | | CENTER - | | | | | | LABORATORY | | + + + + + + | RDW-CV | 14.8 | <15.0 % | [facility] | | | | | | [facility] | | | | | | MEDICAL | | | | | | CENTER - | | | | | | LABORATORY | | + + + + + + | Platelet | 71 (L) | 140 - 440 K/uL | [...] + + + + | % | 73.4 | 45.0 - 82.0 % | [facility] | | | Neutrophils | | | [facility] | | | | | | MEDICAL | | | | | | CENTER - | | | | | | LABORATORY | | + + + + + + | % | 8.1 (L) | 20.0 - 45.0 % | [facility] | | | Lymphocytes | | | [facility] | | | | | | MEDICAL | | | | | | CENTER - | | | | | | LABORATORY | | + + + + + + | % Monocytes | 16.1 (H) | 4.0 - 12.0 % | [facility] | | | | | | [facility] | | | | | | MEDICAL | | | | | | CENTER - | | | | | | LABORATORY | | + + + + + + | % | 0.3 | 0.0 - 5.0 % | [facility] | | | Eosinophils | | | [facility] | | | | | | MEDICAL | | | | | | CENTER - | | | | | | LABORATORY | | + + + + + + | % Basophils | 2.1 (H) | 0.0 - 1.0 % | [facility] | | | | | | [facility] | | | | | | MEDICAL | | | | | | CENTER - | | | | | | LABORATORY | | + + + + + + | Absolute | 4.20 | 1.80 - 8.50 | [facility] | [...] | Basophils | | K/uL | [facility] | | | | | | [...] [address] | [place] | [phone] | | [facility] | | [address] | | | - LABORATORY | | | | + + + + + Basic Metabolic Panel (11/01/2016 4:13 AM PDT) + + + + + + | Component | Value | Ref Range | Performed | Pathologist | | | | | At | Signature | + + + + + + | Na | 134 (L) | 136 - 149 | [facility] | | | | | mmol/L | [facility] | | | | | | [facility]ICAL | | | | | | CENTER - | | | | | | LABORATORY | | + + + + + + | K | 2.8 (L) | 3.5 - 5.1 | [facility] | | | | | mmol/L | [facility] | | | | | | MEDICAL | | | | | | CENTER - | | | | | | LABORATORY | | + + + + + + | Cl | 101 | 98 - 109 mmol/L | [facility] [...] + + + | Anion Gap | 11 | 3 - 16 mmol/L | [facility] | | | | | | [facility] | | | | | | MEDICAL | | | | | | CENTER - | | | | | | LABORATORY | | + + + + + + | Glucose | 87 | 70 - 109 mg/dL | [facility] | | | | | | [facility] | | | | | | MEDICAL | | | | | | CENTER - | | | | | | LABORATORY | | + + + + + + | BUN | 4 (L) | 7 - 18 mg/dL | [facility] | | | | | | [facility] | | | | | | MEDICAL | | | | | | CENTER - | | | | | | LABORATORY | | + + + + + + | Creatinine | 0.53 (L) | 0.60 - 1.30 | [facility] | | | | | mg/dL | [facility] | | | | | | MEDICAL | | | | | | CENTER - | | | | | | LABORATORY | | + + + + + + | eGFR, | >60Comment: GLOMERULAR | >=60 | [facility] | | | non- | FILTRATION | mL/min/1.73m2 | [facility] | | | [place] | RATE,ESTIMATED | | MEDICAL | | | | mL/min/1.40w7Xnnt than | | CENTER - | | [...] + + + + | BUN/Creatin | 7.5 | | [facility] | | | ine [...] + | [facility] | [address] | [place] | [phone] | | [facility] | | [address] | | | - LABORATORY | | | | + + + + + Culture, MRSA (11/01/2016 2:26 AM PDT) + + + + + + | Component | Value | Ref Range | Performed | Pathologist | | | | | At | Signature | + + + + + + | Culture | Negative for MRSA by | | [facility] | | | | chromogenic agar method | | [facility] | | | [...] ST. | [address] | [place], [place] | [phone] | | [facility] | | [address] | | | - LABORATORY | | | | + + + + + CT Head wo Contrast (10/31/2016 11:10 PM PDT) + + | Specimen | + + | | + + + + + | Narrative | Performed At | + + + | TECHNIQUE: Noncontrast axial CT imaging was obtained | [facility] | | through the brain with coronal and sagittal reformats. CLINICAL | | | INFORMATION: SEIZURE (ADULT-ALCOHOLIC) COMPARISON: None available. | | | FINDINGS: BONY STRUCTURES: Paranasal sinuses and mastoid | | | air cells: Clear. Calvarium and skull base: No osseous lesion. No | | | acute fracture. Sella: No bony expansion. EXTRACRANIAL SOFT | | | TISSUES: Orbits: Normal. Scalp: Normal. INTRACRANIAL STRUCTURES: | | | Ventricular system: Normal for age. Extra-axial spaces: Mild to | | | moderate diffuse prominence without abnormal fluid collection. | | | Basilar cisterns are preserved. Intracranial hemorrhage: None. | | | Intracranial mass: None. Midline shift: None. Brain parenchyma: Mild | | | ill-defined areas of hypoattenuation are noted within the | | | periventricular and subcortical white matter. Preservation of the | | | puckett-white matter differentiation. Brainstem: Normal. VASCULAR | | | SYSTEM: No dense MCA. IMPRESSION - No acute intracranial | | | abnormality. Mild to moderate diffuse parenchymal atrophy and mild | | | white matter changes, advanced for patient's age. Dictated and | | | Signed by: Andres Mancera MD Electronically signed: 11/01/2016 | | | 11:28 AM | | + + + + + | Procedure Note | + + | Jermaine, Rad Results In 11/01/2016 11:31 AM PDT | | | | TECHNIQUE: Noncontrast axial CT imaging was obtained through the brain with | | coronal and sagittal reformats. | | | | CLINICAL INFORMATION: SEIZURE (ADULT-ALCOHOLIC) | | | | COMPARISON: None available. | | | | FINDINGS: | | | | BONY STRUCTURES: | | Paranasal sinuses and mastoid air cells: Clear. | | Calvarium and skull base: No osseous lesion. No acute fracture. | | Sella: No bony expansion. | | | | EXTRACRANIAL SOFT TISSUES: | | Orbits: Normal. | | Scalp: Normal. | | | | INTRACRANIAL STRUCTURES: | | Ventricular system: Normal for age. | | Extra-axial spaces: Mild to moderate diffuse prominence without abnormal fluid | | collection. Basilar cisterns are preserved. | | Intracranial hemorrhage: None. | | Intracranial mass: None. | | Midline shift: None. | | Brain parenchyma: Mild ill-defined areas of hypoattenuation are noted within the | | periventricular and subcortical white matter. Preservation of the puckett-white | | matter differentiation. | | Brainstem: Normal. | | | | VASCULAR SYSTEM: No dense MCA. | | | | | | IMPRESSION - | | | | No acute intracranial abnormality. | | | | Mild to moderate diffuse parenchymal atrophy and mild white matter changes, | | advanced for patient's age. | | | | Dictated and Signed by: Andres Mancera MD | | Electronically signed: 11/01/2016 11:28 AM | + + + +---------+ + + | Performing | Address | City/State/Zipcode | Phone Number | | Organization | | | | + +---------+ + + | [facility] | | | | + +---------+ + + Urinalysis with Microscopic with Culture if Indicated (10/31/2016 10:09 PM PDT) + + + + + + | Component | Value | Ref Range | Performed | Pathologist | | | | | At | Signature | + + + + + + | Color, | Straw | Light Yellow, | [facility] | | [...] + + + + | Specific | 1.005 | 1.001 - 1.030 | [facility] | | | [place], | | | [facility] | | [...] + + + | Red Blood | 10-15 (A) | 0 - 2 /HPF | [...] ST. | [address] | [place], [place] | [phone] | | [facility] | | [address] | | | - LABORATORY | | | | + + + + + ECG 12 lead (10/31/2016 8:27 PM PDT) + + + + + + | Component | Value | Ref Range | Performed | Pathologist | | | | | At | Signature | + + + + + + | VENTRICULAR | 114 | BPM | [facility] | | | RATE EKG | | | | | + + + + + + | ATRIAL RATE | 114 | BPM | [facility] | | + + + + + + | P-R | 144 | ms | [facility] | | | INTERVAL | | | | | + + + + + + | QRS | 90 | ms | [facility] | | | DURATION | | | | | + + + + + + | Q-T | 342 | ms | [facility] | | | INTERVAL | | | | | + + + + + + | Q-T | 471 | ms | [facility] | | | INTERVAL | | | | | | (CORRECTED) | | | | | + + + + + + | P WAVE AXIS | 54 | degrees | [facility] | | + + + + + + | QRS AXIS | -7 | degrees | [facility] | | + + + + + + | T AXIS | 47 | degrees | [facility] | | + + + + + + | INTERPRETAT | Sinus | | [facility] | | | ION TEXT | tachycardiaOtherwise | | | | | | normal ECGNo previous | | | | | | ECGs availableConfirmed | | | | | | by PEPE HERNANDEZ MD | | | | | | ([id number]) on 11/01/2016 | | | | | | 6:25:42 AM | | | | + + + + + + + + | Specimen | + + | | + + + + + | Narrative | Performed At | + + + | | | + + + + +---------+ + + | Performing | Address | City/State/Zipcode | Phone Number | | Organization | | | | + +---------+ + + | [facility] | | | | + +---------+ + + XR Chest AP Portable (10/31/2016 8:26 PM PDT) + + | Specimen | + + | | + + + + + | Narrative | Performed At | + + + | EXAM: XR CHEST AP PORTABLE dated 10/31/2016 8:26 PM HISTORY: | [facility] | | SEIZURE (ADULT-ALCOHOLIC) Comparison: September 01, 2015 TECHNIQUE: | | | A single portable view of the chest. FINDINGS: Chronic | | | elevation of the right hemidiaphragm. Mild prominence of the central | | | pulmonary vessels. No acute airspace disease. No pneumothorax. | | | No large pleural effusions. There is moderate cardiomegaly. | | | There are no visible acute osseous abnormalities. Fusion related | | | changes in the lumbar spine. IMPRESSION - Cardiomegaly and | | | prominent pulmonary vessels suggest underlying pulmonary venous | | | congestion. No acute airspace disease. Dictated and Signed by: | | | Hakeem Barroso MD Electronically signed: 11/01/2016 8:22 AM | | + + + + + | Procedure Note | + + | Jermaine, Rad Results In - 11/01/2016 8:25 AM PDT EXAM: XR CHEST AP PORTABLE dated | | 10/31/2016 8:26 PMHISTORY: SEIZURE (ADULT-ALCOHOLIC)Comparison: September 01, 2015TECHNIQUE: A | | single portable view of the chest.FINDINGS:Chronic elevation of the right hemidiaphragm. | | Mild prominence of the centralpulmonary vessels. No acute airspace disease. No | | pneumothorax. No largepleural effusions. There is moderate cardiomegaly. There are no | | visible acuteosseous abnormalities. Fusion related changes in the lumbar | | spine.IMPRESSION -Cardiomegaly and prominent pulmonary vessels suggest underlying | | pulmonary venouscongestion.No acute airspace disease.Dictated and Signed by: Hakeem Osullivan | | MD Dharmesh Electronically signed: 11/01/2016 8:22 AM | | | |Chronic elevation of the right hemidiaphragm. Mild prominence of the central | |pulmonary vessels. No acute airspace disease. No pneumothorax. No large | |pleural effusions. There is moderate cardiomegaly. There are no visible acute | |osseous abnormalities. Fusion related changes in the lumbar spine. | | | |IMPRESSION - | | | |Cardiomegaly and prominent pulmonary vessels suggest underlying pulmonary venous | |congestion. | | | |No acute airspace disease. | | | |Dictated and Signed by: Hakeem Barroso MD | | Electronically signed: 11/01/2016 8:22 AM | + + + +---------+ + + | Performing | Address | City/State/Zipcode | Phone Number | | Organization | | | | + +---------+ + + | [facility] | | | | + +---------+ + + Urinalysis with Microscopic with Culture if Indicated (10/31/2016 8:12 PM PDT) + + + + + [...] + + + + | Specific | 1.014 | 1.001 - 1.030 | [facility] | | | [place], | | | [facility] | | [...] + + + + | Ketones, | Trace (A) | Negative | [facility] [...] + + + + | Squamous | 15-25 (A) | 0 - 2 /LPF | [...] | | | Crystals, | | | [facility] | | | Urine | | [...] [address] | [place] | [phone] | | [facility] | | [address] | | | - LABORATORY | | | | + + + + + Ammonia (10/31/2016 8:12 PM PDT) + +-------+ + + + | Component | Value | Ref Range | Performed | Pathologist | | | | | At | Signature | + +-------+ + + + | Ammonia | 33 | 11 - 35 umol/L | [facility] [...] [address] | [place] | [phone] | | [facility] | | [address] | | | - LABORATORY | | | | + + + + + Magnesium (10/31/2016 8:07 PM PDT) + +---------+ + + + [...] + + | [facility] | [address] | [place] | [phone] | | [facility] | | [address] | | | - LABORATORY | | | | + + + + + Extra Green Top Tube (10/31/2016 8:07 PM PDT) + +-------+ + + + | Component | Value | Ref Range | Performed | Pathologist | | | | | At | Signature | + +-------+ + + + | Extra Green | Done | | [facility] | | | Top Tube | | | [facility] | | | [...] [address] | [place] | [phone] | | [facility] | | [address] | | | - LABORATORY | | | | + + + + + Culture, Blood (10/31/2016 7:57 PM PDT) + + + + + [...] [address] | [place] | [phone] | | [facility] | | [address] | | | - LABORATORY | | | | + + + + + Culture, Blood (10/31/2016 7:57 PM PDT) + + + + + [...] Specimen | + + | Blood - Swab of line | | insertion site | | (specimen) | + + + + + + + | Performing | Address | City/State/Zipcode | Phone Number | | Organization | | | | + + + + + | [facility] | [address] | [place] | [phone] | | [facility] | | [address] | | | - LABORATORY | | | | + + + + + Acetaminophen Level (10/31/2016 7:57 PM PDT) + +-------+ + + + | Component | Value | Ref Range | Performed | Pathologist | | | | | At | Signature | + +-------+ + + + | Acetaminoph | <10 | <10 ug/mL | [facility] | | | en Level | | | [facility] | | [...] [address] | [place] | [phone] | | [facility] | | [address] | | | - LABORATORY | | | | + + + + + Ethanol (10/31/2016 7:57 PM PDT) + +-------+ + + + | Component | Value | Ref Range | Performed | Pathologist | | | | | At | Signature | + +-------+ + + + | ALCOHOL, | 100 | <400 mg/dL | [facility] | | | SERUM/PLASM | | | [facility] | | | A | | | MEDICAL | | | [...] [address] | [place] | [phone] | | [facility] | | [address] | | | - LABORATORY | | | | + + + + + Salicylate Level (10/31/2016 7:57 PM PDT) + +-------+ + + + | Component | Value | Ref Range | Performed | Pathologist | | | | | At | Signature | + +-------+ + + + | Salicylate | <4.0 | <30.0 mg/dL | [facility] | | | Level | | | [facility] | | [...] + | [facility] | [address] | [place], [place] | [phone] | | [facility] | | [address] | | | - LABORATORY | | | | + + + + + Lipase (10/31/2016 7:57 PM PDT) + +-------+ + + + | Component | Value | Ref Range | Performed | Pathologist | | | | | At | Signature | + +-------+ + + + | Lipase | 24 | 0 - 60 U/L | [facility] | | | | | [...] + | [facility] | [address] | [place] | [phone] | | [facility] | | [address] | | | - LABORATORY | | | | + + + + + Amylase (10/31/2016 7:57 PM PDT) + +---------+ + + + | Component | Value | Ref Range | Performed | Pathologist | | | | | At | Signature | + +---------+ + + + | Amylase | 149 (H) | 27 - 100 IU/L | [facility] | | | | | [...] [address] | [place] | [phone] | | [facility] | | [address] | | | - LABORATORY | | | | + + + + + Lactic Acid (10/31/2016 7:57 PM PDT) + +---------+ + + + | Component | Value | Ref Range | Performed | Pathologist | | | | | At | Signature | + +---------+ + + + | Lactate | 2.8 (H) | 0.5 - 2.2 | [facility] [...] [address] | [place] | [phone] | | [facility] | | [address] | | | - LABORATORY | | | | + + + + + PTT (10/31/2016 7:57 PM PDT) + +-------+ + + + | Component | Value | Ref Range | Performed | Pathologist | | | | | At | Signature | + +-------+ + + + | aPTT | 23 | 22 - 36 seconds | [facility] | | | | | [...] + | [facility] | [address] | [place] | [phone] | | [facility] | | [address] | | | - LABORATORY | | | | + + + + + Protime INR (10/31/2016 7:57 PM PDT) + + + + + + | Component | Value | Ref Range | Performed | Pathologist | | | | | At | Signature | + + + + + + | Prothrombin | 15.1 (H) | 11.3 - 13.9 | [facility] | | | Time | | seconds | [facility] | | | | | | MEDICAL | | | | | | CENTER - | | | | | | LABORATORY | | + + + + + + | INR | 1.16 (H)Comment: Usual | 0.90 - 1.10 | [...] [address] | [place] | [phone] | | [facility] | | [address] | | | - LABORATORY | | | | + + + + + Comprehensive Metabolic Panel (10/31/2016 7:57 PM PDT) + + + + + [...] + + + + | K | 2.9 (L) | 3.5 - 5.1 | [facility] [...] + + + | Anion Gap | 11 | 3 - 16 mmol/L | [facility] | | | | | | [facility] | | | | | | MEDICAL | | | | | | CENTER - | | | | | | LABORATORY | | + + + + + + | Glucose | 100 | 70 - 109 mg/dL | [facility] | | | | | | [facility] | | | | | | MEDICAL | | | | | | CENTER - | | | | | | LABORATORY | | + + + + + + | BUN | 4 (L) | 7 - 18 mg/dL | [facility] | | | | | [facility] | | | | | | CENTER - | | | | | | LABORATORY | | + + + + + + | Creatinine | 0.59 (L) | 0.60 - 1.30 | [facility] | | | | | mg/dL | [facility] | | | | | | MEDICAL | | | | | | CENTER - | | | | | | LABORATORY | | + + + + + + | eGFR, | >60Comment: GLOMERULAR | >=60 | [facility] | | | non- | FILTRATION | mL/min/1.73m2 | [facility] | | | [place] | RATE,ESTIMATED | | MEDICAL | | | | mL/min/1.94u4Oode than | | CENTER - | | [...] 7.2 (L) | 8.3 - 10.5 | [facility] | | | | | mg/dL | [facility] | | | | | | MEDICAL | | | | | | CENTER - | | | | | | LABORATORY | | + + + + + + | Albumin | 1.5 (L) | 3.2 - 5.0 g/dL | [facility] | | | | | | [facility] | | | | | | MEDICAL | | | | | | CENTER - | | | | | | LABORATORY | | + + + + + + | Bilirubin | 1.4Comment: This is an | 0.1 - 1.5 [...] + + + + | Total | 6.4 | 6.0 - 7.8 g/dL | [facility] | | | Protein | | | [facility] | | | | | | MEDICAL | | | | | | CENTER - | | | | | | LABORATORY | | + + + + + + | AST | 52 (H)Comment: This is | 10 - 42 U/L | [facility] | | | | an appended report. | | [facility] | | | | These results have been | | MEDICAL | | | | appended to a previously | | CENTER - | | | | preliminary verified | | LABORATORY | | | | report. | | | | + + + + + + | ALT | 15Comment: This is an | 6 - 45 U/L | [facility] | | | | appended report. These | | [facility] | | | | results have been | | MEDICAL | | | | appended to a previously | | CENTER - | | | | preliminary verified | | LABORATORY | | | | report. | | | | + + + + + + | Alkaline | 143 (H)Comment: This is | 40 - 110 [...] + + + + | Globulin | 4.9 (H) | 2.1 - 3.8 g/dL | [...] + + + + | BUN/Creatin | 6.8 | | [facility] | | | ine Ratio | | | [facility] | | [...] [address] | [place] | [phone] | | [facility] | | [address] | | | - LABORATORY | | | | + + + + + CBC with Differential (10/31/2016 7:57 PM PDT) + + + + + + | Component | Value | Ref Range | Performed | Pathologist | | | | | At | Signature | + + + + + + | White Blood | 5.3 | 4.0 - 11.0 K/uL | [facility] | | | Cells | | | [facility] | | | | | | MEDICAL | | | | | | CENTER - | | | | | | LABORATORY | | + + + + + + | Red Blood | 3.19 (L) | 3.70 - 5.20 | [facility] | | | Cells | | M/uL | [facility] | | | | | | MEDICAL | | | | | | CENTER - | | | | | | LABORATORY | | + + + + + + | Hemoglobin | 10.2 (L) | 11.5 - 16.0 | [facility] | | | | | g/dL | [facility] | | | | | | MEDICAL | | | | | | CENTER - | | | | | | LABORATORY | | + + + + + + | Hematocrit | 30.2 (L) | 34.0 - 47.0 % | [facility] | | | | | | [facility] | | | | | | MEDICAL | | | | | | CENTER - | | | | | | LABORATORY | | + + + + + + | MCV | 94.9 | 83.0 - 101.0 fL | [facility] [...] + + + + | MCHC | 33.6 | 32.0 - 36.0 | [facility] | | | | | g/dL | [facility] | | | | | | MEDICAL | | | | | | CENTER - | | | | | | LABORATORY | | + + + + + + | RDW-CV | 14.9 | <15.0 % | [facility] | | | | | | [facility] | | | | | | MEDICAL | | | | | | CENTER - | | | | | | LABORATORY | | + + + + + + | Platelet | 90 (L) | 140 - 440 K/uL | [...] + + + + | % | 81.7 | 45.0 - 82.0 % | [facility] | | | Neutrophils | | | [facility] | | | | | | MEDICAL | | | | | | CENTER - | | | | | | LABORATORY | | + + + + + + | % | 8.2 (L) | 20.0 - 45.0 % | [facility] | | | Lymphocytes | | | [facility] | | | | | | MEDICAL | | | | | | CENTER - | | | | | | LABORATORY | | + + + + + + | % Monocytes | 8.6 | 4.0 - 12.0 % | [facility] | | | | | | [facility] | | | | | | MEDICAL | | | | | | CENTER - | | | | | | LABORATORY | | + + + + + + | % | 0.3 | 0.0 - 5.0 % | [facility] | | | Eosinophils | | | [facility] | | [...] + + + | Absolute | 0.50 | 0.00 - 1.00 | [facility] | [...] | | Basophils | | K/uL | [facility] | | | | [...] + + | [facility] | [address] | [place] | [phone] | | [facility] | | [address] | | | - LABORATORY | | | | + + + + + LABS - EXTERNAL SCAN (10/31/2016 12:00 AM PDT) + + + | Narrative | Performed At | + + + | Ordered by an | | | unspecified provider. | | + + + documented in this encounter Visit Diagnoses + + | Diagnosis | + + | Alcohol withdrawal syndrome with complication (HCC) - Primary | + + | Hypertensive urgency Unspecified essential hypertension | + + | Altered sensorium Other alteration of consciousness | + + | Hypokalemia Hypopotassemia | + + | Recurrent seizures (HCC) Other forms of epilepsy and recurrent seizures without | | mention of intractable epilepsy | + + | Delirium tremens (HCC) Alcohol withdrawal delirium | + + | Alcohol withdrawal seizure, with unspecified complication (HCC) | + + | Alcohol withdrawal syndrome with complication, with unspecified complication (HCC) | + + | Acute hyponatremia Hyposmolality and/or hyponatremia | + + | Alcoholic cirrhosis of liver with ascites (HCC) Alcoholic cirrhosis of liver | + + | Ascites due to alcoholic cirrhosis (HCC) | + + | Acute hypokalemia Hypopotassemia | + + | Bilateral lower extremity edema Edema | + + | Hepatic encephalopathy (HCC) Hepatic encephalopathy | + + documented in this encounter Administered Medications + +--------+ +--------+------+------+ | Medication Order | MAR | Action | Dose | Rate | Site | | | Action | Date | | | | + +--------+ +--------+------+------+ | acetaminophen (TYLENOL) tablet | Given | 11/07/19 | 650 mg | | | | 650 mg 650 mg, Oral, EVERY 4 | | 17 5:14 | | | | | HOURS PRN, Pain, or fever >= 38.3 | | AM PDT | | | | | C (101.5 F), Starting Wed | | | | | | | 11/01/16 at 0222 | | | | | | + +--------+ +--------+------+------+ +-------+ +--------+---+---+ | Given | 11/04/19 | 650 mg | | | | | 17 6:41 | | | | | | PM PDT | | | | +-------+ +--------+---+---+ | Given | 11/04/19 | 650 mg | | | | | 17 8:48 | | | | | | AM PDT | | | | +-------+ +--------+---+---+ +---+---+ | | | +---+---+ + +-------+ + +---+---+ | adult multivitamin with | Given | 11/08/19 | 1 tablet | | | | minerals/iron tablet 1 tablet 1 | | 17 8:01 | | | | | tablet, Oral, DAILY, First dose | | AM PDT | | | | | on Sun11/07/16 at 0900 | | | | | | + +-------+ + +---+---+ +---+---+ | | | +---+---+ + +---------+ +------+-------+---+ | albumin 25% IVPB 25 g 25 g, | New Bag | 11/02/19 | 25 g | 100 | | | Intravenous, Administer over 60 | | 17 12:45 | | mL/hr | | | Minutes, ONCE, 11/01/16 at | | PM PDT | | | | | 1300, For 1 dose | | | | | | + +---------+ +------+-------+---+ +---+---+ | | | +---+---+ + +-------+ +--------+---+---+ | albuterol 2.5 mg/3 mL nebulizer | Given | 11/05/19 | 2.5 mg | | | | solution 2.5 mg 2.5 mg, | | 17 7:05 | | | | | Nebulization, RT EVERY 4 HOURS | | PM PDT | | | | | PRN, Wheezing, Shortness of | | | | | | | Breath, Increased Work of | | | | | | | Breathing, Starting 11/01/16 | | | | | | | at 2314, RT will administer., | | | | | | + +-------+ +--------+---+---+ +---+---+ | | | +---+---+ + +-------+ +-------+---+---+ | albuterol-ipratropium (DUONEB) | Given | 11/08/19 | 3 mLs | | | | 2.5-0.5 mg/3 mL nebulizer | | 17 2:33 | | | | | solution 3 mL 3 mL, | | PM PDT | | | | | Nebulization, RT Q6H, First dose | | | | | | | on 11/01/16 at 2330 | | | | | | + +-------+ +-------+---+---+ +-------+ +-------+---+---+ | Given | 11/08/19 | 3 mLs | | | | | 17 9:34 | | | | | | AM PDT | | | | +-------+ +-------+---+---+ | Given | 11/08/19 | 3 mLs | | | | | 17 3:32 | | | | | | AM PDT | | | | +-------+ +-------+---+---+ +---+---+ | | | +---+---+ + +-------+ +------+---+---+ | bumetanide (BUMEX) injection 2 | Given | 11/01/19 | 2 mg | | | | mg 2 mg, Intravenous, ONCE, Tue | | 17 9:05 | | | | | 10/31/16 at 2050, For 1 dose | | PM PDT | | | | + +-------+ +------+---+---+ +---+---+ | | | +---+---+ + +---------+ +-----+-------+---+ | cefTRIAXone (ROCEPHIN) 1 g in | New Bag | 11/03/19 | 1 g | 100 | | | sodium chloride 0.9% 50 mL IVPB | | 17 8:08 | | mL/hr | | | 1 g, Intravenous, Administer over | | AM PDT | | | | | 30 Minutes, EVERY 24 HOURS | | | | | | | (Daily), First dose on Sun | | | | | | | 11/01/16 at 1000, Activate system | | | | | | | and mix before use., Indications: | | | | | | | Possible SBP | | | | | | + +---------+ +-----+-------+---+ +---------+ +-----+-------+---+ | New Bag | 11/02/19 | 1 g | 100 | | | | 17 10:50 | | mL/hr | | | | AM PDT | | | | +---------+ +-----+-------+---+ +---+---+ | | | +---+---+ + +---------+ +---+--------+---+ | folic acid 1 mg, thiamine | New Bag | 11/03/19 | | 102.2 | | | (VITAMIN B-1) 100 mg, pyridOXINE | | 17 9:10 | | mL/hr | | | (VITAMIN B-6) 100 mg in sodium | | AM PDT | | | | | chloride 0.9% 100 mL IVPB | | | | | | | Intravenous, Administer over 60 | | | | | | | Minutes, DAILY, First dose on Sun | | | | | | | 11/01/16 at 0245, For 2 doses, | | | | | | | give 1st dose prior to any food | | | | | | | or dextrose containing IV., | | | | | | + +---------+ +---+--------+---+ +---------+ +---+--------+---+ | New Bag | 11/02/19 | | 102.2 | | | | 17 6:07 | | mL/hr | | | | AM PDT | | | | +---------+ +---+--------+---+ +---+---+ | | | +---+---+ + +---------+ +---+--------+---+ | folic acid 1 mg, thiamine | | 11/07/19 | | 102.2 | | | (VITAMIN B-1) 100 mg, pyridOXINE | | 17 8:00 | | mL/hr | | | (VITAMIN B-6) 100 mg in sodium | | AM PDT | | | | | chloride 0.9% 100 mL IVPB | | | | | | | Intravenous, Administer over 60 | | | | | | | Minutes, DAILY, First dose (after | | | | | | | last reorder) on Sun11/03/16 at | | | | | | | 0900, give 1st dose prior to any | | | | | | | food or dextrose containing IV., | | | | | | + +---------+ +---+--------+---+ +---------+ +---+--------+---+ | New Bag | 11/06/19 | | 102.2 | | | | 17 8:33 | | mL/hr | | | | AM PDT | | | | +---------+ +---+--------+---+ | New Bag | 11/05/19 | | 102.2 | | | | 17 8:50 | | mL/hr | | | | AM PDT | | | | +---------+ +---+--------+---+ +---+---+ | | | +---+---+ + +-------+ +------+---+---+ | folic acid tablet 1 mg 1 mg, | Given | 11/08/19 | 1 mg | | | | Oral, DAILY, First dose on Sun | | 17 8:01 | | | | | 11/07/16 at 0900 | | AM PDT | | | | + +-------+ +------+---+---+ +---+---+ | | | +---+---+ + +-------+ +-------+---+---+ | furosemide (LASIX) injection 40 | Given | 11/03/19 | 40 mg | | | | mg 40 mg, Intravenous, ONCE, | | 17 1:03 | | | | | Kasey 11/02/16 at 0100, For 1 dose | | AM PDT | | | | + +-------+ +-------+---+---+ +---+---+ | | | +---+---+ + +-------+ +-------+---+---+ | furosemide (LASIX) injection 40 | Given | 11/03/19 | 40 mg | | | | mg 40 mg, Intravenous, ONCE, | | 17 8:10 | | | | | Kasey 11/02/16 at 0800, For 1 dose | | AM PDT | | | | + +-------+ +-------+---+---+ +---+---+ | | | +---+---+ + +-------+ +-------+---+---+ | furosemide (LASIX) tablet 20 mg | Given | 11/06/19 | 20 mg | | | | 20 mg, Oral, DAILY, First dose | | 17 8:33 | | | | | on 11/04/16 at 0930 | | AM PDT | | | | + +-------+ +-------+---+---+ +-------+ +-------+---+---+ | Given | 11/05/19 | 20 mg | | | | | 17 10:00 | | | | | | AM PDT | | | | +-------+ +-------+---+---+ +---+---+ | | | +---+---+ + +-------+ +-------+---+---+ | furosemide (LASIX) tablet 20 mg | Given | 11/08/19 | 20 mg | | | | 20 mg, Oral, 2 TIMES DAILY 0800 | | 17 8:01 | | | | | & 1600, First dose (after last | | AM PDT | | | | | modification) on 11/05/16 at | | | | | | | 1600 | | | | | | + +-------+ +-------+---+---+ +-------+ +-------+---+---+ | Given | 11/07/19 | 20 mg | | | | | 17 3:58 | | | | | | PM PDT | | | | +-------+ +-------+---+---+ | Given | 11/07/19 | 20 mg | | | | | 17 8:00 | | | | | | AM PDT | | | | +-------+ +-------+---+---+ +---+---+ | | | +---+---+ + +-------+ +--------+---+---+ | lactulose liquid 15 mL 15 mL, | Given | 11/08/19 | 15 mLs | | | | Oral, DAILY, First dose on Sat | | 17 8:01 | | | | | 11/04/16 at 0930 | | AM PDT | | | | + +-------+ +--------+---+---+ +-------+ +--------+---+---+ | Given | 11/07/19 | 15 mLs | | | | | 17 8:00 | | | | | | AM PDT | | | | +-------+ +--------+---+---+ | Given | 11/06/19 | 15 mLs | | | | | 17 8:35 | | | | | | AM PDT | | | | +-------+ +--------+---+---+ +---+---+ | | | +---+---+ + +-------+ +--------+---+---+ | lactulose liquid 30 mL 30 mL, | Given | 11/02/19 | 30 mLs | | | | Oral, 4 TIMES DAILY, First dose | | 17 12:06 | | | | | on Sun11/01/16 at 0900, Goal of | | PM PDT | | | | | 3-4 bowel movements per day, can | | | | | | | hold further doses once achieved | | | | | | | desired amount of bowel | | | | | | | movements, | | | | | | + +-------+ +--------+---+---+ +-------+ +--------+---+---+ | Given | 11/02/19 | 30 mLs | | | | | 17 8:32 | | | | | | AM PDT | | | | +-------+ +--------+---+---+ +---+---+ | | | +---+---+ + +-------+ +--------+---+---+ | lactulose liquid 30 mL 30 mL, | Given | 11/03/19 | 30 mLs | | | | Oral, DAILY, First dose on Kasey | | 17 8:08 | | | | | 11/02/16 at 0900 | | AM PDT | | | | + +-------+ +--------+---+---+ +---+---+ | | | +---+---+ + +---------+ +--------+-------+---+ | levETIRAcetam (KEPPRA) 500 mg | New Bag | 11/05/19 | 500 mg | 420 | | | in sodium chloride 0.9% 100 mL | | 17 8:50 | | mL/hr | | | IVPB 500 mg, Intravenous, | | AM PDT | | | | | Administer over 15 Minutes, EVERY | | | | | | | 12 HOURS (2 times per day), | | | | | | | First dose on Sun11/01/16 at 0945 | | | | | | + +---------+ +--------+-------+---+ +---------+ +--------+-------+---+ | New Bag | 11/04/19 | 500 mg | 420 | | | | 17 9:02 | | mL/hr | | | | PM PDT | | | | +---------+ +--------+-------+---+ | New Bag | 11/04/19 | 500 mg | 420 | | | | 17 8:54 | | mL/hr | | | | AM PDT | | | | +---------+ +--------+-------+---+ +---+---+ | | | +---+---+ + +-------+ +--------+---+---+ | levETIRAcetam (KEPPRA) tablet | Given | 11/08/19 | 500 mg | | | | 500 mg 500 mg, Oral, 2 TIMES | | 17 8:01 | | | | | DAILY, First dose on 11/04/16 | | AM PDT | | | | | at 2100 | | | | | | + +-------+ +--------+---+---+ +-------+ +--------+---+---+ | Given | 11/07/19 | 500 mg | | | | | 17 8:41 | | | | | | PM PDT | | | | +-------+ +--------+---+---+ | Given | 11/07/19 | 500 mg | | | | | 17 8:00 | | | | | | AM PDT | | | | +-------+ +--------+---+---+ +---+---+ | | | +---+---+ + +-------+ +--------+---+---+ | LORazepam (ATIVAN) injection | Given | 11/05/19 | 0.5 mg | | | | 0.5-4 mg 0.5-4 mg, Intravenous, | | 17 5:12 | | | | | PRN, Withdrawal Symptoms, CIWA | | PM PDT | | | | | PROTOCOL, Starting Kasey 11/02/16 at | | | | | | | 1249, CIWA <10: No Dose - | | | | | | | Reassess at least Q4h CIWA 10-15: | | | | | | | 1mg - Reassess in 2hr CIWA | | | | | | | 16-20: 2mg - Reassess in 1hr CIWA | | | | | | | 21-25: 3mg - Reassess in 1hr | | | | | | | CIWA >25 - 4mg - Reassess in | | | | | | | 30min If both PO and IV options | | | | | | | are available, always use PO | | | | | | | first if tolerating PO and | | | | | | | patient safe to swallow. Do NOT | | | | | | | administer both PO and IV dosing | | | | | | | at the same time. , | | | | | | + +-------+ +--------+---+---+ +-------+ +--------+---+---+ | Given | 11/05/19 | 0.5 mg | | | | | 17 10:00 | | | | | | AM PDT | | | | +-------+ +--------+---+---+ +---+---+ | | | +---+---+ + +-------+ +------+---+---+ | LORazepam (ATIVAN) injection 1 | Given | 11/01/19 | 1 mg | | | | mg 1 mg, Intravenous, ONCE, Tue | | 17 8:20 | | | | | 10/31/16 at 1945, For 1 dose | | PM PDT | | | | + +-------+ +------+---+---+ +---+---+ | | | +---+---+ + +-------+ +------+---+---+ | LORazepam (ATIVAN) injection 1 | Given | 11/02/19 | 1 mg | | | | mg 1 mg, Intravenous, EVERY 30 | | 17 12:23 | | | | | MIN PRN, Seizures, Withdrawal | | AM PDT | | | | | Symptoms, Starting 10/31/16 at | | | | | | | [id number], For 4 doses | | | | | | + +-------+ +------+---+---+ +-------+ +------+---+---+ | Given | 11/01/19 | 1 mg | | | | | 17 10:26 | | | | | | PM PDT | | | | +-------+ +------+---+---+ +---+---+ | | | +---+---+ + +-------+ +------+---+---+ | LORazepam (ATIVAN) injection | Given | 11/03/19 | 2 mg | | | | 1-8 mg 1-8 mg, Intravenous, | | 17 7:49 | | | | | EVERY 15 MIN PRN, See Admin | | AM PDT | | | | | Instruction, Starting 11/01/16 | | | | | | | at 0222, FOR ICU USE ONLY | | | [...] +-------+ +------+---+---+ +-------+ +------+---+---+ | Given | 11/03/19 | 2 mg | | | | | 17 1:59 | | | | | | AM PDT | | | | +-------+ +------+---+---+ | Given | 11/03/19 | 2 mg | | | | | 17 12:16 | | | | | | AM PDT | | | | +-------+ +------+---+---+ +---+---+ | | | +---+---+ + +-------+ +------+---+---+ | LORazepam (ATIVAN) injection 2 | Given | 11/01/19 | 2 mg | | | | mg 2 mg, Intravenous, ONCE, Tue | | 17 9:05 | | | | | 10/31/16 at 2100, For 1 dose | | PM PDT | | | | + +-------+ +------+---+---+ +---+---+ | | | +---+---+ + +-------+ +------+---+---+ | LORazepam (ATIVAN) tablet 1-4 | Given | 11/04/19 | 1 mg | | | | mg 1-4 mg, Oral, PRN, Withdrawal | | 17 8:19 | | | | | Symptoms, CIWA PROTOCOL, | | PM PDT | | | | | Starting [facility] 11/02/16 at 1249, | | | | | | | CIWA <10: No Dose - Reassess at | | | | | | | least Q4h CIWA 10-15: 1mg - | | | | | | | Reassess in 2hr CIWA 16-20: 2mg - | | | | | | | Reassess in 1hr CIWA 21-25: 3mg | | | | | | | - Reassess in 1hr CIWA >25 - 4mg | | | | | | | - Reassess in 30min If both PO | | | | | | | and IV options are available, | | | | | | | always use PO first if tolerating | | | | | | | PO and patient safe to swallow. | | | | | | | Do NOT administer both PO and IV | | | | | | | dosing at the same time. , | | | | | | + +-------+ +------+---+---+ +-------+ +------+---+---+ | Given | 11/04/19 | 2 mg | | | | | 17 3:28 | | | | | | AM PDT | | | | +-------+ +------+---+---+ | Given | 11/03/19 | 2 mg | | | | | 17 10:00 | | | | | | PM PDT | | | | +-------+ +------+---+---+ +---+---+ | | | +---+---+ + +-------+ +--------+---+---+ | magnesium oxide (MAG-OX) tablet | Given | 11/08/19 | 400 mg | | | | 400 mg 400 mg, Oral, DAILY, | | 17 8:01 | | | | | First dose on Sun11/06/16 at 0900 | | AM PDT | | | | + +-------+ +--------+---+---+ +-------+ +--------+---+---+ | Given | 11/07/19 | 400 mg | | | | | 17 8:55 | | | | | | AM PDT | | | | +-------+ +--------+---+---+ +---+---+ | | | +---+---+ + +---------+ +-----+ +---+ | magnesium sulfate 2 g/50 mL | New Bag | 11/02/19 | 2 g | 25 mL/hr | | | IVPB 2 g 2 g, Intravenous, | | 17 6:09 | | | | | Administer over 120 Minutes, | | AM PDT | | | | | ONCE, Sun11/01/16 at 0515, For 1 | | | | | | | dose, Maximum recommended | | | | | | | infusion rate = 1 gram/hour., | | | | | | + +---------+ +-----+ +---+ +---+---+ | | | +---+---+ + +---------+ +-----+ +---+ | magnesium sulfate 2 g/50 mL | New Bag | 11/02/19 | 2 g | 25 mL/hr | | | IVPB 2 g 2 g, Intravenous, | | 17 8:33 | | | | | Administer over 120 Minutes, | | AM PDT | | | | | ONCE, 11/01/16 at 0900, For 1 | | | | | | | dose, Begin this 2nd infusion 2 | | | | | | | hours after the prior Magnesium | | | | | | | Sulfate infusion was completed., | | | | | | + +---------+ +-----+ +---+ +---+---+ | | | +---+---+ + +---------+ +-----+ +---+ | magnesium sulfate 2 g/50 mL | New Bag | 11/03/19 | 2 g | 25 mL/hr | | | IVPB 2 g 2 g, Intravenous, | | 17 1:07 | | | | | Administer over 120 Minutes, | | AM PDT | | | | | ONCE, [facility] 11/02/16 at 0100, For 1 | | | | | | | dose, Infuse over 2 hours., | | | | | | + +---------+ +-----+ +---+ +---+---+ | | | +---+---+ + +---------+ +-----+ +---+ | magnesium sulfate 2 g/50 mL | New Bag | 11/03/19 | 2 g | 25 mL/hr | | | IVPB 2 g 2 g, Intravenous, | | 17 5:07 | | | | | Administer over 120 Minutes, | | PM PDT | | | | | ONCE, [facility] 11/02/16 at 1715, For 1 | | | | | | | dose, Maximum recommended | | | | | | | infusion rate = 1 gram/hour., | | | | | | + +---------+ +-----+ +---+ +---+---+ | | | +---+---+ + +---------+ +-----+ +---+ | magnesium sulfate 2 g/50 mL | New Bag | 11/05/19 | 2 g | 25 mL/hr | | | IVPB 2 g 2 g, Intravenous, | | 17 6:26 | | | | | Administer over 120 Minutes, | | AM PDT | | | | | ONCE, 11/04/16 at 0630, For 1 | | | | | | | dose, Maximum recommended | | | | | | | infusion rate = 1 gram/hour., | | | | | | + +---------+ +-----+ +---+ +---+---+ | | | +---+---+ + +---------+ +-----+ +---+ | magnesium sulfate 2 g/50 mL | New Bag | 11/08/19 | 2 g | 25 mL/hr | | | IVPB 2 g 2 g, Intravenous, | | 17 7:59 | | | | | Administer over 120 Minutes, | | AM PDT | | | | | ONCE, e 11/07/16 at 0745, For 1 | | | | | | | dose, Infuse over 2 hours., | | | | | | + +---------+ +-----+ +---+ +---+---+ | | | +---+---+ + +---------+ +-----+ +---+ | magnesium sulfate 4 g/100 mL | New Bag | 11/06/19 | 4 g | 25 mL/hr | | | IVPB 4 g 4 g, Intravenous, | | 17 10:32 | | | | | Administer over 240 Minutes, | | AM PDT | | | | | ONCE, [place] 11/05/16 at 0815, For 1 | | | | | | | dose, Maximum recommended | | | | | | | infusion rate = 1 gram/hour., | | | | | | + +---------+ +-----+ +---+ +---+---+ | | | +---+---+ + +---------+ +-----+ +---+ | magnesium sulfate 6 g in sodium | New Bag | 11/07/19 | 6 g | 10 mL/hr | | | chloride 0.9% 50 mL IVPB 6 g, | | 17 9:26 | | | | | Intravenous, ONCE, [facility] 11/06/16 at | | AM PDT | | | | | 0845, For 1 dose, Maximum | | | | | | | recommended infusion rate = 1 | | | | | | | gram/hour., | | | | | | + +---------+ +-----+ +---+ +---+---+ | | | +---+---+ + +-------+ +--------+---+---+ | metoprolol tartrate (LOPRESSOR) | Given | 11/04/19 | 2.5 mg | | | | injection 2.5 mg 2.5 mg, | | 17 9:39 | | | | | Intravenous, EVERY 4 HOURS PRN, | | PM PDT | | | | | HR>120, Starting 11/03/16 at | | | | | | | 0805 | | | | | | + +-------+ +--------+---+---+ +-------+ +--------+---+---+ | Given | 11/04/19 | 2.5 mg | | | | | 17 8:48 | | | | | | AM PDT | | | | +-------+ +--------+---+---+ +---+---+ | | | +---+---+ + +-------+ +------+---+---+ | metoprolol tartrate (LOPRESSOR) | Given | 11/03/19 | 5 mg | | | | injection 5 mg 5 mg, | | 17 3:28 | | | | | Intravenous, EVERY 4 HOURS PRN, | | PM PDT | | | | | HR>120, Starting Sun11/01/16 at | | | | | | | 1420 | | | | | | + +-------+ +------+---+---+ +-------+ +------+---+---+ | Given | 11/03/19 | 5 mg | | | | | 17 7:44 | | | | | | AM PDT | | | | +-------+ +------+---+---+ | Given | 11/03/19 | 5 mg | | | | | 17 12:19 | | | | | | AM PDT | | | | +-------+ +------+---+---+ +---+---+ | | | +---+---+ + +-------+ +------+---+---+ | oxyCODONE (ROXICODONE) tablet 5 | Given | 11/07/19 | 5 mg | | | | mg 5 mg, Oral, EVERY 6 HOURS | | 17 8:41 | | | | | PRN, Pain, Starting Sun11/01/16 | | PM PDT | | | | | at 0222, If ineffective or not | | | | | | | tolerated, contact prescriber, | | | | | | + +-------+ +------+---+---+ +-------+ +------+---+---+ | Given | 11/06/19 | 5 mg | | | | | 17 8:32 | | | | | | PM PDT | | | | +-------+ +------+---+---+ | Given | 11/06/19 | 5 mg | | | | | 17 6:34 | | | | | | AM PDT | | | | +-------+ +------+---+---+ +---+---+ | | | +---+---+ + +-------+ +-------+---+---+ | pantoprazole (PROTONIX) DR | Given | 11/08/19 | 40 mg | | | | tablet 40 mg 40 mg, Oral, DAILY | | 17 6:43 | | | | | BEFORE BREAKFAST, First dose on | | AM PDT | | | | | 11/01/16 at 1000, Do not cut | | | | | | | or crush., | | | | | | + +-------+ +-------+---+---+ +-------+ +-------+---+---+ | Given | 11/07/19 | 40 mg | | | | | 17 6:36 | | | | | | AM PDT | | | | +-------+ +-------+---+---+ | Given | 11/06/19 | 40 mg | | | | | 17 6:31 | | | | | | AM PDT | | | | +-------+ +-------+---+---+ +---+---+ | | | +---+---+ + +---------+ +---------+-------+---+ | piperacillin-tazobactam (ZOSYN) | New Bag | 11/01/19 | 3.375 g | 200 | | | 3.375 g in sodium chloride 0.9% | | 17 9:05 | | mL/hr | | | 100 mL IVPB 3.375 g, | | PM PDT | | | | | Intravenous, Administer over 0.5 | | | | | | | Hours, ONCE, 10/31/16 at 2049, | | | | | | | For 1 dose, Activate system and | | | | | | | mix before use., Indications: | | | | | | | SEPSIS OF UNKNOWN ETIOLOGY | | | | | | + +---------+ +---------+-------+---+ +---+---+ | | | +---+---+ + + + +--------+---+---+ | potassium chloride (K-DUR) ER | Given by | 11/03/19 | 20 mEq | | | | tablet 20 mEq 20 mEq, Oral, 3 | Other | 17 5:07 | | | | | TIMES DAILY WITH MEALS, First | | PM PDT | | | | | dose (after last modification) on | | | | | | | 11/01/16 at 1200 | | | | | | + + + +--------+---+---+ +-------+ +--------+---+---+ | Given | 11/03/19 | 20 mEq | | | | | 17 12:17 | | | | | | PM PDT | | | | +-------+ +--------+---+---+ | Given | 11/03/19 | 20 mEq | | | | | 17 7:35 | | | | | | AM PDT | | | | +-------+ +--------+---+---+ +---+---+ | | | +---+---+ + +-------+ +--------+---+---+ | potassium chloride (K-DUR) ER | Given | 11/06/19 | 20 mEq | | | | tablet 20 mEq 20 mEq, Oral, | | 17 8:34 | | | | | ONCE, [place] 11/05/16 at 0815, For 1 | | AM PDT | | | | | dose | | | | | | + +-------+ +--------+---+---+ +---+---+ | | | +---+---+ + +-------+ +--------+---+---+ | potassium chloride (K-DUR) ER | Given | 11/07/19 | 20 mEq | | | | tablet 20 mEq 20 mEq, Oral, | | 17 8:55 | | | | | ONCE, [facility] 11/06/16 at 0900, For 1 | | AM PDT | | | | | dose | | | | | | + +-------+ +--------+---+---+ +---+---+ | | | +---+---+ + +---------+ +--------+-------+---+ | potassium chloride 10 mEq in | New Bag | 11/02/19 | 10 mEq | 100 | | | sterile water 100 mL IVPB 10 | | 17 11:01 | | mL/hr | | | mEq, Intravenous, Administer over | | AM PDT | | | | | 1 Hours, EVERY HOUR, First dose | | | | | | | on Sun11/01/16 at 0600, For 4 | | | | | | | doses | | | | | | + +---------+ +--------+-------+---+ +---------+ +--------+-------+---+ | New Bag | 11/02/19 | 10 mEq | 100 | | | | 17 9:42 | | mL/hr | | | | AM PDT | | | | +---------+ +--------+-------+---+ | New Bag | 11/02/19 | 10 mEq | 100 | | | | 17 8:34 | | mL/hr | | | | AM PDT | | | | +---------+ +--------+-------+---+ +---+---+ | | | +---+---+ + +---------+ +--------+-------+---+ | potassium chloride 40 mEq in | New Bag | 11/02/19 | 40 mEq | 130 | | | sodium chloride 0.45% 500 mL IVPB | | 17 3:43 | | mL/hr | | | 40 mEq, Intravenous, Administer | | PM PDT | | | | | over 4 Hours, ONCE, [facility] 11/01/16 | | | | | | | at 1500, For 1 dose | | | | | | + +---------+ +--------+-------+---+ +---+---+ | | | +---+---+ + +---------+ +---+-------+---+ | sodium chloride 0.45% (1/2 NS) | New Bag | 11/01/19 | | 100 | | | 1,000 mL with potassium chloride | | 17 9:47 | | mL/hr | | | 40 mEq, magnesium sulfate 2 g | | PM PDT | | | | | infusion at 100 mL/hr, | | | | | | | Intravenous, ONCE, [facility] 10/31/16 at | | | | | | | 2100, For 1 dose | | | | | | + +---------+ +---+-------+---+ +---+---+ | | | +---+---+ + +---------+ +---+ +---+ | sodium chloride 0.9% (NS) | New Bag | 11/02/19 | | 75 mL/hr | | | infusion at 75 mL/hr, | | 17 3:52 | | | | | Intravenous, CONTINUOUS, Starting | | AM PDT | | | | | 11/01/16 at 0245 | | | | | | + +---------+ +---+ +---+ +---+---+ | | | +---+---+ + +-------+ +-------+---+---+ | spironolactone (ALDACTONE) | Given | 11/03/19 | 50 mg | | | | tablet 50 mg 50 mg, Oral, 2 | | 17 8:08 | | | | | TIMES DAILY, First dose on Sun | | AM PDT | | | | | 11/01/16 at 0900, Hazardous: Use | | | | | | | appropriate handling | | | | | | | precautions., | | | | | | + +-------+ +-------+---+---+ +-------+ +-------+---+---+ | Given | 11/02/19 | 50 mg | | | | | 17 8:45 | | | | | | PM PDT | | | | +-------+ +-------+---+---+ | Given | 11/02/19 | 50 mg | | | | | 17 8:32 | | | | | | AM PDT | | | | +-------+ +-------+---+---+ +---+---+ | | | +---+---+ + +-------+ +-------+---+---+ | spironolactone (ALDACTONE) | Given | 11/06/19 | 50 mg | | | | tablet 50 mg 50 mg, Oral, DAILY, | | 17 8:34 | | | | | First dose on 11/04/16 at | | AM PDT | | | | | 0915, Hazardous: Use appropriate | | | | | | | handling precautions., | | | | | | + +-------+ +-------+---+---+ +-------+ +-------+---+---+ | Given | 11/05/19 | 50 mg | | | | | 17 10:02 | | | | | | AM PDT | | | | +-------+ +-------+---+---+ +---+---+ | | | +---+---+ + +-------+ +-------+---+---+ | spironolactone (ALDACTONE) | Given | 11/08/19 | 50 mg | | | | tablet 50 mg 50 mg, Oral, 2 | | 17 8:01 | | | | | TIMES DAILY 0800 & 1600, First | | AM PDT | | | | | dose (after last modification) on | | | | | | | 11/05/16 at 1600, Hazardous: | | | | | | | Use appropriate handling | | | | | | | precautions., | | | | | | + +-------+ +-------+---+---+ +-------+ +-------+---+---+ | Given | 11/07/19 | 50 mg | | | | | 17 3:58 | | | | | | PM PDT | | | | +-------+ +-------+---+---+ | Given | 11/07/19 | 50 mg | | | | | 17 8:00 | | | | | | AM PDT | | | | +-------+ +-------+---+---+ +---+---+ | | | +---+---+ + +-------+ +--------+---+---+ | thiamine (VITAMIN B-1) tablet | Given | 11/08/19 | 100 mg | | | | 100 mg 100 mg, Oral, DAILY, | | 17 8:01 | | | | | First dose on Sun11/07/16 at 0900 | | AM PDT | | | | + +-------+ +--------+---+---+ +---+---+ | | | +---+---+ documented in this encounter
--- OUTSIDE RECORDS SUMMARY | ~2020-01-23 | XMS | Encounter Summary ---
Demographics + + + | Address | [address] | | | [place] [address] | + + + | Home Phone | | + + + | Preferred Language | Unknown | + + + | Marital Status | Single | + + + | Mormon Affiliation | 1041 | + + + | Race | or | + + + | Ethnic Group | Not or | + + + Author + + + | Author | [facility] | | | and [place] | + + + | Organization | [facility] | | | and [place] | + + + | Address | Unknown | + + + | Phone | Unavailable | + + + Support + + + + + | Name | Relationship | Address | Phone | + + + + + | Joanne Pham | ECON | [address] | | | | | [place] | | | | | [address] | | + + + + + | Viktor Son | EDDIE | Unknown | | + + + + + | Edd Gill | ECON | Unknown | | + + + + + | Conner Barber | ECON | Unknown | | + + + + + Care Team Providers + +------+ + | Care Client Support Representative Name | Role | Phone | + +------+ + PCP | Unavailable | + +------+ + Encounter Details +--------+ + + + + | Date | Type | Department | Care Team | Description | +--------+ + + + + | 03/23/ | Hospital | [facility] | Alyce Dumont | Seizure ([facility]); UTI | | 2012 - | Encounter | [facility] | MD [phone] | (lower urinary tract | | | | CLINICAL DECISION | [address] | infection); Seizure | | 03/28/ | | [address] | [place] [address]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 She had evidence of a UTI an d possible bronchitis while in the hospital and she was treated with anti-biotics. She had evidence of alcohol associated anemia and thrombocytopenia and hyponatremia, all of which re mained stable during her stay. She had extensive work with social sciences professor while in the hospital. Unfortunately, due to h er non compliance with her outpatient regimen and continued alcohol abuse she was not eligib le for inpatient alcohol rehab (please see social sciences professor note.) She is being discharged i n stable condition but is at high risk for readmission due to her continued alcohol abuse an d underlying liver disease. Last CBC: WBC Date Value Range Status 03/28/2013 6.1 3.8 - 11.0 K/uL Final Testing performed at [address] [address] RBC Date Value Range Status 03/28/2013 2.70* 3.70 - 5.10 M/uL Final Testing performed at [address] [address] HGB Date Value Range Status 03/28/2013 9.3* 11.3 - 15.5 g/dL Final Testing performed at [address] [address] HCT Date Value Range Status 03/28/2013 26.5* 34.0 - 46.0 % Final Testing performed at [address] [address] MCV Date Value Range Status 03/28/2013 98.1 80.0 - 100.0 fl Final Testing performed at [address] [address] MCH Date Value Range Status 03/28/2013 34.4* 27.0 - 34.0 pg Final Testing performed at [address] [address] MCHC Date Value Range Status 03/28/2013 35.0 32.0 - 35.5 g/dL Final Testing performed at [address] [address] RDW SD Date Value Range Status 03/28/2013 51.2 37 - 53 fl Final Testing performed at [address] [address] PLT Date Value Range Status 03/28/2013 111* 150 - 400 K/uL Final Testing performed at [address] [address] MPV Date Value Range Status 03/28/2013 8.8 Final Testing performed at [address] [address] NEUTROPHILS ABS Date Value Range Status 03/28/2013 [...] are the prescriptions that you need to order picker. You may get these medications from any [...] 03/28/131848 Date of Service: 03/28/131848 Status: Signed Tank Car Repairer: Paulina Palomares RN (Registered Nurse) Pt discharged [...] (none) Author Type: Registered Nurse Filed: 03/28/13 2103 Date of Service: 03/28/13 1102 Status: Addendum Tank Car Repairer: Alice Strong RN (Registered Nurse) Related Notes: Original Note by Alice Strong RN (Registered Nurse) filed at 03/28/13 125 1 [facility] [address] [facility] [address] This worker [facility] . Per h er, pt is not eligible for services thru [facility], as she has been noncompliant with her a ppointments over the last year. Per previous contact w the [facility], pt needs to be referred to the above listed rehab center. You need to present to the assessment center on a Sunday or , bring proof of insurance, your [place] affiliation proof, photo id and proof on income. The assessment c enter is located at [address] in [facility], their phone number is [phone] 1. . I met the pt this am, [...] w brother. 1529-Rec a call from Liset-at [facility]- let her know, pt will be gi shawn information to follow up At [facility] in [place], she will follow up with the the [...] Date of Service: 03/28/13 1019 Status: Signed Tank Car Repairer: Precious Miller MD (Physician) [facility] Service: Hospitalist Progress Note Hospital Day: LOS: 5 days SUBJECTIVE Patient Summary: 42 y/o female transferred from [place] with alcohol w ithdrawal seizures. Seen by Dr. Chandra, no indication for seizure medications. She has now been off valium for withdrawal x 24 hours. She has bronchitis and is being switched from Ro cephin to keflex today. The goal is to get her into an alcohol rehab program in [place]. Sh e is okay for discharge today, [...] Service: Neurology Author Type: Physician Filed: 03/28/13 2690 Date of Service: 03/28/13813 Status: Signed Tank Car Repairer: Yareli Chandra MD (Physician) Subjective: Patient seen [...] status post bilateral coil embolization of the melt room operator space. EEG: Unremarkable, mild generalized nonspecific cerebral [...] with IR, bilateral coil embolization of the melt room operator space could be done to reinaldo at [...] Date of Service: 03/28/13 0803 Status: Signed Tank Car Repairer: Felecia George PT (Physical Therapist) 03/28/13 0803 PT Last Visit PT Received On 03/28/13 Reason for Treatment (sepsis from ETOH withdrawal) Requires PT Follow Up PT tech Follow up PT Only? No PT Eval/Reassessment Date 03/28/13 Assistance Required 1 person Beater Boss Needed No Requires PT Follow Up PT [...] ETOH rehab facility. Prior Function Level of [place] Independent with functional mobility;Independent with ADLs (does [...] Eval/Reassessment Date 03/28/13 Assistance Required 1 person Beater Boss Needed No Precautions Other Precautions fall precautions [...] is open to ETOH rehab facility. onver miiram Transaction, Provider Unknown - 03/28/2013 3:25 AM PST Nurse Progress Note by Сергей Watson RN at 03/28/13324 Author: Сергей Watson RN Service: (none) Author Type: Registered Nurse Filed: 03/28/13 0333 Date of Service: 03/28/13324 Status: Signed Tank Car Repairer: Сергей Watson RN (Registered Nurse) Pt A&O x2-3, VSS, pt c/o of pain and given IV morphine x3. Pt did not sleep much during sh ift. No acute changes from pm assessment, q2h checks performed, will continue to monitor. Сергей Watson RN 03/28/2013 3:33 AM onver miriam Transaction, Provider Unknown - 03/27/2013 3:57 PM PST Case Management by Alice Strong RN at 03/27/13 8305 Author: Alice Strong RN Service: (none) Author Type: Registered Nurse Filed: 03/27/13 3598 Date of Service: 03/27/13 6094 Status: Signed Tank Car Repairer: Alice Strong RN (Registered Nurse) DCP- This worker rec a call from [facility] RN-ph . She d irects me to call the [facility] to explore alcohol rehab- called Behavioral Health at 1- [phone] and was directed to Tomas Bobo who referred me to [facility] out of [facility] , because pt is [place] Medicaid. Their # is - I called them and they transferr ed me to left a vm, req a callback. CM to follow. oPrecious guerrero MD - 03/27/2013 12:20 PM PSTFormatting of this note might be different from th e original. Progress Notes by Precious Miller MD at 03/27/13 1220 Author: Precious Miller MD Service: (none) Author Type: Physician Filed: 03/27/13 4209 Date of Service: 03/27/13 1220 Status: Signed Tank Car Repairer: Precious Miller MD (Physician) 03/27/2013 Principal Problem: [...] post b ilateral coil embolization of the melt room operator space. 03/25/2013 1. Lobulated appearance of the [...] 03/26/132219 Date of Service: 03/26/132218 Status: Signed Tank Car Repairer: Basilio Ferrara RN (Registered Nurse) Went to [...] 03/26/132014 Date of Service: 03/26/132002 Status: Signed Tank Car Repairer: Celso Goldberg MD (Physician) [facility] Service: Hospitalist Progress Note Hospital Day: LOS: 3 days Post-Op Day: * No surgery found * SUBJECTIVE Patient Summary: Transferred from [facility] after seizures from alcohol with drawal and [...] episode before while she was sober from [facility] but never been treated for seizure, [...] Management by Alice Strong RN at 03/26/13 3909 Author: Alice Strong RN Service: (none) Author Type: Registered Nurse Filed: 03/27/1317 Date of Service: 03/26/131648 Status: Addendum Tank Car Repairer: Alice Strong RN (Registered Nurse) Related Notes: [...] her w transpor tation. Pt has a [facility] RN- Liset Virk, who comes to the hospital and review w Dr Dixie Celestin and myself- the [facility]-will look for associated ETOH programs and [...] 03/26/13606 Date of Service: 03/26/13605 Status: Signed Tank Car Repairer: Basilio Ferrara RN (Registered Nurse) Patient resting [...] 03/25/131826 Date of Service: 03/25/131825 Status: Signed Tank Car Repairer: Efra Roca RN (Registered Nurse) Pt started the shift off very confused and agitated. However, as the day progressed, she b ecame more aware of her surroundings and where she was at. Lactulose has been ordered to he lp bring down her ammonia levels. Dr. Miguel is hoping to d/c this pt tomorrow. Efra matamoros 6:27 PM 03/25/2013 ilber Gomes i, MD - 03/25/2013 3:04 PM PST Progress Notes by Wilber Santana MD at 03/25/13 1504 Author: Wilber Santana MD Service: Hospitalist Author Type: Physician Filed: 03/25/13 1522 Date of Service: 03/25/13 150 Status: Signed Tank Car Repairer: Wilber Santana MD (Physician) [facility] Service: Hospitalist Progress Note Hospital Day: LOS: 2 days Post-Op Day: * No surgery found * SUBJECTIVE Patient Summary: Transferred from [facility] after seizures from alcohol with drawal and [...] Date of Service: 03/25/13 1345 Status: Signed Tank Car Repairer: Alice Strong RN (Registered Nurse) DCP- Reviewed [...] Date of Service: 03/25/13 115 Status: Signed Tank Car Repairer: Savannah Clarke RN (Registered Nurse) Notified Lead RN patient's PIV is due to be changed today per policy. Instructed Lead RN t o have Primary RN call PICC RN if USGPIV is needed Thank you. Wilber Montes i, MD - 03/24/2013 3:48 PM PST Progress Notes by Wilber Santana MD at 03/24/13 7657 Author: Wilber Santana MD Service: (none) Author Type: Physician Filed: 03/24/13 1612 Date of Service: 03/24/13 1548 Status: Signed Tank Car Repairer: Wilber Santana MD (Physician) [facility] Service: Hospitalist Progress Note Hospital Day: LOS: 1 day Post-Op Day: * No surgery found * SUBJECTIVE Patient Summary: Transferred from [facility] after seizures from alcohol with drawal and [...] for anti seizure medication s. Alcoholism. On CIND protocol. No sign of alcohol withdrawal. Pneumonia. [...] Notes by Lynda Gutiérrez RN at 03/24/13 1246 Author: Lynda Gutiérrez RN Service: (none) Author Type: Registered Nurse Filed: 03/24/13 1895 Date of Service: 03/24/13 0642 Status: Addendum Tank Car Repairer: Lynda Gutiérrez RN (Registered Nurse) Related Notes: [...] 03/23/131940 Date of Service: 03/23/131939 Status: Signed Tank Car Repairer: Alcira Epstein RN (Registered Nurse) Report given to 3OP RN, pt transferred with all of belongings. Wilber Montes i, MD - 03/23/2013 3:32 PM PST Progress Notes by Wilber Santana MD at 03/23/131531 Author: Wilber Santana MD Service: Hospitalist Author Type: Physician Filed: 03/23/13 153 Date of Service: 03/23/131531 Status: Signed Tank Car Repairer: Wilber Santana MD (Physician) Patient seen and [...] Results Procedure Component Value Units Date/Time TSH [[id number]] (Abnormal) Collected:03/23/13 1010 Specimen Information:Blood Updated:03/23/13 1309 TSH 6.48 (H) uIU/mL Ammonia [[id number]] (Abnormal) Collected:03/23/13 1010 Specimen Information:Blood Updated:03/23/13 1102 AMMONIA 42 (H) umol/L Protime-INR [[id number]] Collected:03/23/13 1010 Specimen Information:Blood Updated:03/23/13 1052 INR 1.4 Influenza Swab [[id number]] Collected:03/23/13617 Specimen Information:Nasopharyngeal / Nasopharyngeal Culture Updated:03/23/13640 Specimen Description NASOPHARYNGEAL RESULT Result: Negative for Influenzae Type A and Type B antigen by ICA RESULT Result: Testing performed at [facility] [place] [address];[place] [address] REPORT STATUS 03/23/2013 FINAL Comprehensive metabolic panel [[id number]] (Abnormal) Collected:03/23/13609 Specimen Information:Blood Updated:03/23/13639 SODIUM 138 [...] 19 U/L EGFR >60 mL/min/1.73m2 Ethanol Level [[id number]] Collected:03/23/13609 Specimen Information:Blood Updated:03/23/13639 ALCOHOL,ETHYL <3 mg/dL CBC w Auto Diff [[id number]] (Abnormal) Collected:03/23/13609 Specimen Information:Blood Updated:03/23/13619 WBC 8.8 [...] 03/23/135 Date of Service: 03/23/131042 Status: Signed Tank Car Repairer: Alcira Epstein RN (Registered Nurse) Pt awake [...] 0850 Date of Service: 03/23/13847 Status: Signed Tank Car Repairer: Alciar Epstein RN (Registered Nurse) Pt awake, states she feels "lost", appears anxious and somewhat agitated. Denies headache or nausea, oriented to self only, 11 on CIWA. onver miriam Transaction, Provider Unknown - 03/23/2013 7:30 AM PST Nurse Progress Note by Cristy Pereira RN at 03/23/13729 Author: Cristy Pereira RN Service: (none) Author Type: Registered Nurse Filed: 03/23/13822 Date of Service: 03/23/13729 Status: Signed Tank Car Repairer: Cristy Pereira RN (Registered Nurse) Pt in [...] 03/23/13643 Date of Service: 03/23/13643 Status: Signed Tank Car Repairer: Taryn Sauer RPH (Pharmacist) Clinical Pharmacy Note: Renal Monitoring Shaila Huy 42 y.o. female Ht Readings from Last 1 Encounters: 07/29/11 1.702 m (5' 7") Wt Readings from Last 1 Encounters: 07/29/11 60.782 kg (134 lb) CREATININE Date Value Range Status 03/23/2013 0.60 0.50 - 1.00 mg/dL Final Testing performed at [facility] [place] [address];[place] [address] Patient's GFR is > 60 ml/min Pharmacy [...] 03/23/1339 Date of Service: 03/23/13629 Status: Signed Tank Car Repairer: Alyce Dumont MD (Physician) [facility] Service: Hospitalist Admission History & Physical Date of Admission: 03/23/2013 Requesting Physician: Antoinettei , Emergency Department Reason for Admission: Seizures and Sepsis History Obtained From: patient CHIEF COMPLAINT: seizures HISTORY OF PRESENT ILLNESS The patient is a 42 y.o. female with significant past medical history. Transferred from [facility] after seizures from alcohol withdrawal and uti [...] or urinary symptoms but positive UA in [facility] Still tachycardia but no seizure activities. Last ETOH 1.5 day ago. REVIEW OF SYSTEMS Negative except for pertinent items noted in HPI. Past Medical History Diagnosis Date Hemorrhage of gastrointestinal tract, unspecified Liver disease Hypertension Anemia Past Surgical History Procedure Date Esophagogastroduodenoscopy 07/30/2011 Procedure: ESOPHAGOGASTRODUODENOSCOPY; Surgeon: Mitchell Stewart IV, MD; Location: [facility]; Service: Gastroenterology; Laterality: N/A; anesthesia assist if available since may be difficult to sedate Hx of tracheostomy Immunizations: Influenza: Ordered Pneumoccocal: Not indicated Allergies Allergen Reactions Ciprofloxacin Other (See Comments) Pt. Unable to recall, this information came from [facility] record Ibuprofen Other (See Comments) Pt. Unable to recall, this information came from [facility] record (Not in a hospital [...] 0813 Date of Service: 03/27/1359 Status: Signed Tank Car Repairer: Yareli Chandra MD (Physician) I was asked [...] daily). She also admitted to previous s [facility]. She reports that her seizures [...] ESOPHAGOGASTRODUODENOSCOPY; Surgeon: Mitchell Stewart IV, MD; Location: [facility]; Service: Gastroenterology; Laterality: N/A; anesthesia assist if available since may be difficult to sedate Hx of tracheostomy Allergy: Allergies Allergen Reactions Ciprofloxacin Other (See Comments) Pt. Unable to recall, this information came from [facility] record Ibuprofen Other (See Comments) Pt. Unable to recall, this information came from [facility] record Medications: Home medications: Prior to Admission [...] status post bilateral coil embolization of the melt room operator space. EEG: Unremarkable, mild generalized nonspecific cerebral [...] to quit. Bilateral coil embolization of the melt room operator space, not sure yet from indication. Patient [...] Ibanez PA-C Service: (none) Author Type: Physician Irrigation Pump Installer - Certified Filed: 03/23/13 0645 Date of Service: 03/23/13520 Status: Signed Tank Car Repairer: Aimee Ibanez PA-C (Physician Irrigation Pump Installer - Certified) Related Notes: Cosigned by Shaun Lee MD (Physician) filed at 03/23/13 0713 Procedures [facility] Department of Emergency Medicine History of Present Illness Patient Identification Shaila Son is a 42 y.o. female. Patient information was obtained from EMS personnel. History/Exam limitations: mental status. Patient presented to the Emergency Department by: [facility] Chief Complaint Chief Complaint Patient presents with Seizures Transfer from [facility] with seizures and ETOH withdrawl. Withdrawal The [...] ESOPHAGOGASTRODUODENOSCOPY; Surgeon: Mitchell Stewart IV, MD; Location: [facility]; Service: Gastroenterology; Laterality: N/A; anesthesia assist [...] Unable to recall, this information came from [facility] record Ibuprofen Other (See Comments) Pt. Unable to recall, this information came from [facility] record History Social History Marital [...] 0530 pt presents as a transfer from [facility] for alcohol abuse, seizures from withdrawal a nd fever with UTI. She has rec'd 5 liters of Fluids, vanco and zosyn. Dr eLe rec'd report f rom [place], he is aware of pt, he rec admission. I will request a bed now. Pt is able to tell me she is in a hospital and that she arrived via ambulance. She can tell me its almost Sunday, that its March and year 2012. She vaguely remembers having a seizure at home but not much else. Pt was seen earlier at [facility] for abd pain, CT at that earlier visit indicated chronic c hangusha,sent home on Tramadol and returned with a hx of having 2 seizures at home. She hasn't had any ETOH in 36 hours. After discussing case with Dr Lee who took the initial transfer call, based off pts, fever , vitals signs, and seizures, she qualified for ICU status at [facility], and Dr Lee told ER staff her sx wouldn't qualify for our ICU status. He agreed on transfer. Her ER discharge d x from [facility] are: sepsis, ETOH withdrawal/seziures, chronic liver [...] Value Ref Range Date/Time Comprehensive metabolic panel [[id number]] (Abnormal) Collected:03/23/13609 Order Status:Completed Updated:03/23/13639 Specimen Information:Blood [...] U/L EGFR >60 >60 mL/min/1.73m2 Ethanol Level [[id number]] Collected:03/23/13609 Order Status:Completed Updated:03/23/13639 Specimen Information:Blood ALCOHOL,ETHYL <3 <10 mg/dL CBC w Auto Diff [[id number]] (Abnormal) Collected:03/23/13609 Order Status:Completed Updated:03/23/13619 Specimen Information:Blood [...] 03/23/1313 Date of Service: 03/23/13520 Status: Signed Tank Car Repairer: Shaun Lee MD (Physician) Related Notes: Related Note by Aimee Ibanez PA-C (Physician Irrigation Pump Installer - Certified) filed a t 03/23/13 0645 [...] 03/23/13518 Date of Service: 03/23/13511 Status: Signed Tank Car Repairer: Matt Benavides RN (Registered Nurse) Pt. Is a transfer from [facility] in [place], [place]. Per report she c/o abd pain [...] ic" seizure, lasting about 1 minute, at [facility] and has a lip laceration on her [...] 03/23/13440 Date of Service: 03/23/13440 Status: Signed Tank Car Repairer: Matt Benavides RN (Registered Nurse) Bed:08
Expected date:
Expected time:
Means of arrival:
Comments:
onver miriam Transjacob, Provider Unknown - 03/23/2013 4:36 AM PST ED Notes by Jose Carlos Anderson RN at 03/23/13435 Author: Jose Carlos Anderson RN Service: (none) Author Type: Registered Nurse Filed: 05/03/13150 Date of Service: 03/23/13435 Status: Signed Tank Car Repairer: Jose Carlos Anderson RN (Registered Nurse) Pt is a transfer from [facility]. Pt had seizures at home x2 as well as one seiz ure at [facility]. Pt has hx cirrhosis, ETOH abuse, varices, pancreatitis, and reese ia. [place] Jose Carlos Anderson RN 05/03/13150 docume nted [...] status post bilateral coil embolization of the melt room operator space. | | | | | + [...] | | through the cranial vertex. FINDINGS: Curriculum Manager imaging demonstrates | | | normal craniocervical alignment. There is no prevertebral soft tissue | | | swelling. Coil embolization is noted along the bilateral melt room operator | | | space. There is no [...] SON years FemaleCT | | HEAD WO [id number]/18/2013 7:48 PM INDICATION: Alcohol abuse, fever, seizure | | COMPARISON: None TECHNIQUE: CT scan of the head without contrast. 5-mm axial | | noncontrast images were acquired from the foramen magnum through the cranial vertex. | | FINDINGS: Curriculum Manager imaging demonstrates normal craniocervical alignment. There is no | | prevertebral soft tissue swelling. Coil embolization is noted along the bilateral | | melt room operator space. There is no uncal or tonsillar [...] bilateral coil embolization of the | | melt room operator space. | |There is no uncal or [...] status post bilateral coil embolization of the melt room operator space . | | | | | [...] PM PDT SHAILA SON1971US ABDOMEN | | [id number]/25/2013 5:55 PM HISTORY: Liver cirrhosis, abdominal pain [...] ICA | | | Testing performed at [facility];[place] [address] | | | REPORT STATUS 03/23/2013 FINAL [...]
--- OUTSIDE RECORDS SUMMARY | ~2020-01-23 | XMS | Encounter Summary ---
Demographics + + + | Address | [address] | | | [place] [address] | + + + | Home Phone [...] Author + + + | Author | [facility] | | | and [place] | + + + | Organization | [facility] | | | and [place] | + + + | Address | Unknown | + + + | Phone | Unavailable | + + + Support + + + + + | Name | Relationship | Address | Phone | + + + + + | Joanne Pham | ECON | [address] | | | | | [place] | | | | | [address] | | + + + + + | Viktor Son | EDDIE | Unknown | | + + + + + | Edd Gill | ECON | Unknown | | + + + + + | Conner Barber | ECON | Unknown | | + + + + + Care Team Providers + +------+ + | Care Store Administrator Name | Role | Phone | + +------+ + | Trixie Rose PA-C | PCP | | + +------+ + Encounter Details +--------+ + + + + | Date | Type | Department | Care Team | Description | +--------+ + + + + | 08/25/ | Hospital | [facility] | Paulina Wu MD | Hematemesis with | | 2019 - | Encounter | [facility] | [address] | nausea; Alcohol | | | | CARE FLOOR [address] | [place] [address] | withdrawal syndrome | | 09/05/ | | [address] | [phone] | with complication | | 2019 | | [place], [place] | | (HCC); Ascites due | | | | [phone] | | to alcoholic | | | | [phone] | | cirrhosis (HCC); | | | [...] MD Service: Hospitalist Author Type: Physician Filed: 10/08/1811 Date of Service: 09/04/18 1340 Status: Addendum Funeral Home Assistant: Ha Aguayo MD (Physician) Related Notes: Original Note by Ha Aguayo MD (Physician) filed at 09/04/18 1676 [facility] Service: Hospitalist Discharge Summary Date of Admission: [...] and other chronic comorbidities who presents to [facility] from [facility] ER for hematemesis admitted for [...] anemia. The patient is to live in [place] with significant other, ambulatory GI refe rral to be provided. The patient is to follow-up with her primary care physician within 1 w [place] after discharge. The patient was able to reiterate what was discussed verbally demonstr ating understanding. All questions answered. Past Medical History Diagnosis Date Anemia Hemorrhage of gastrointestinal tract, unspecified Hypertension Liver disease Seizures (HCC) Past Surgical History Procedure Laterality Date BACK SURGERY ESOPHAGOGASTRODUODENOSCOPY N/A 07/30/2011 Procedure: ESOPHAGOGASTRODUODENOSCOPY; Surgeon: Mitchell Stewart IV, MD; Location: [facility]; Service: Gastroenterology; Laterality: N/A; anesthesia assist if available since may be difficult to sedate ESOPHAGOGASTRODUODENOSCOPY N/A 08/26/2018 Procedure: ESOPHAGOGASTRODUODENOSCOPY; Surgeon: Mitchell Stewart IV, MD; Location: [facility]; Service: Gastroenterology; Laterality: N/A; Hx of tracheostomy Allergies Allergen Reactions Aspirin Anaphylaxis Pt unable to recall, this information came from [facility] record Lactose Anaphylaxis Pt unable to recall, this information came from [facility] record Ciprofloxacin Other (See Comments) Pt. Unable to recall, this information came from [facility] record Ibuprofen Other (See Comments) Pt. Unable to recall, this information came from [facility] record Prescriptions Prior to Admission Medication [...] Visits Requested: 1 Follow up: LAURENCE Membreno [id number] [facility] [address] [place] [address] Schedule an appointment as soon as possible [...] | | | | | | | VITAMINS/URBAN DESIGN CONSULTANT) TABS | | | | | | [...] (none) Author Type: Registered Nurse Filed: 09/05/18 1059 Date of Service: 09/05/18 100 Status: Addendum Funeral Home Assistant: Jodie Sebastian RN (Registered Nurse) Related Notes: Original Note by Jodie Sebastian RN (Registered Nurse) filed a t 09/05/18 100 CM received a call from [employer] at [facility] stating that the pt's insurance auth has been approved and they are able to accept pt today. CM updated pt's significant other [place] on pt's discharge time per pt request. Disposition: [facility] Transportation: facility to transport @ 1100 All orders, signed AVS, and prescriptions have been faxed All DC paperwork completed Patient and family in agreement with discharge plan Medicare important message (Given or N/A): N/A Jodie Sebastian RN onver miriam Transaction, Provider Unknown - 09/05/2018 5:04 AM PDT Nurse Progress Note by Alba Boss RN at 09/05/18 0500 Author: Alba Boss RN Service: (none) Author Type: Registered Nurse Filed: 09/05/18 3646 Date of Service: 09/05/18 050 Status: Signed Funeral Home Assistant: Alba Boss RN (Registered Nurse) Pt A&O x4, forgetful at times. 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 No acute changes overnight, patent midline. Unable [...] Date of Service: 09/04/18 143 Status: Signed Funeral Home Assistant: Jodie Sebastian RN (Registered Nurse) CM discussed discharge planning with pt. Pt is stating that she would prefer to go to a SNF for rehab opposed to Home Health. CM contacted [facility] at [facility] who states she [facility] run insurance auth and follow up with CM. onver miriam Transaction, Provider Unknown - 09/04/2018 6:31 AM PDT Nurse Progress Note by Chadwick Murdock RN at 09/04/18630 Author: Chadwick Murdock RN Service: (none) Author Type: Registered Nurse Filed: 09/04/18 0633 Date of Service: 09/04/18630 Status: Signed Funeral Home Assistant: Chadwick Murdock RN (Registered Nurse) Pt has been oriented x3, calling appropriately, and no c/o pain. Urine output has been arou nd 400mls. Vital signs have remained stable. Chart has been reviewed. Chadwick Murdock RN . onver miriam Transaction, Provider Unknown - 09/03/2018 7:27 PM PDT Nurse Progress Note by SN Odilia at 09/03/181926 Author: SN Odilia Service: (none) Author Type: Demonstrator Sewing Techniques Filed: 09/03/181937 Date of Service: 09/03/181926 Status: Signed Funeral Home Assistant: SN Odilia (Demonstrator Sewing Techniques) Pt abdomen remains distended and soft post [...] Hakeem Gramajo PTA Service: (none) Author Type: Automotive Service Professional Filed: 09/03/18 1418 Date of Service: 09/03/18 1336 Status: Signed Funeral Home Assistant: Hakeem Gramajo PTA (Automotive Service Professional) PHYSICAL THERAPY TREATMENT NOTE PT Received On: 09/03/18 Reason for Treatment: Deconditioning, LE fracture (GIB, CIWA, recent R tib/fib fx) Requires PT Follow Up: Yes Recommendations: Home Assist, PT Plan Treatment/Interventions: Continue per Primary PT POC Progress: Progressing toward goals Summary Comments: Pt supine in bed when ELECTRONIC SCIENCE TEACHER arrives, agreeable to therapy. Therapy focused on [...] Date of Service: 09/03/18 1241 Status: Signed Funeral Home Assistant: Rosalinda Sanz RN (Registered Nurse) Pt had paracentesis with no difficulty. Tolerated procedure well. 3L removed. Rosalinda katz RN onver miriam Transaction, Provider Unknown - 09/03/2018 10:06 AM PDT Case Management by Jodie Sebastian RN at 09/03/18 1006 Author: Jodie Sebastian RN Service: (none) Author Type: Registered Nurse Filed: 09/04/18 1212 Date of Service: 09/03/18 1006 Status: Addendum Funeral Home Assistant: Jodie Sebastian RN (Registered Nurse) Related Notes: [...] she is staying with Conner in his halfway facility but she is look ing for [...] Notes by Ha Aguayo MD at 09/03/18 0975 Author: Ha Aguayo MD Service: Hospitalist Author Type: Physician Filed: 09/04/18 1400 Date of Service: 09/03/18 0935 Status: Signed Funeral Home Assistant: Ha Aguayo MD (Physician) [facility] Service: Hospitalist Progress Note Hospital Day: LOS: 10 days Post-Op Day: 4 Days Post-Op Procedure: Procedure(s) (LRB): ESOPHAGOGASTRODUODENOSCOPY (N/A) Briefly, 48-year-old female with extensive past medical history most significant for alcoho l abuse, decompensated alcoholic cirrhosis (ascites and esophageal varices status post sachin ng 2010), hypertension and other chronic comorbidities who presents to [facility] from [facility] ER for hematemesis admitted for [...] of creatinine change. Pending results will con track oiler nephrology consultation. -No contrast-induced imaging identified per [...] Inpatient Code Status: DNR/DNI Ha Aguayo MD 09/04/2018 onversion Transact ion, Provider Unknown - 09/03/2018 6:43 AM PDTFormatting of this note might be different fr om the original. Nurse Progress Note by Ashley Esposito RN at 09/03/18642 Author: Ashley Esposito RN Service: (none) Author Type: Registered Nurse Filed: 09/03/18642 Date of Service: 09/03/18642 Status: Signed Funeral Home Assistant: Ashley Esposito RN (Registered Nurse) Patient's vitals stable, no acute changes. End of shift audit complete. onver miriam Transaction, Provider Unknown - 09/02/2018 5:17 PM PDT Nurse Progress Note by SN Odilia at 09/02/181716 Author: SN Odilia Service: (none) Author Type: Demonstrator Sewing Techniques Filed: 09/02/18 1723 Date of Service: 09/02/181716 Status: Signed Funeral Home Assistant: SN Odilia (Demonstrator Sewing Techniques) Pt has had three loose stools this [...] Therapy Progress Note by Staci Meeks MS CCC-ONSHORE DIVER at 09/02/185 Author: Staci Meeks MS CCC-ONSHORE DIVER Service: (none) Author Type: Speech and Language Pat hologist Filed: 09/02/18 1215 Date of Service: 09/02/18 121 Status: Signed Funeral Home Assistant: Staci Meeks MS CCC-ONSHORE DIVER (Speech and Language Pathologist) BEDSIDE SWALLOW ONSHORE DIVER Last Visit ONSHORE DIVER Received On: 09/02/18 Requires ONSHORE DIVER Follow Up: No Recommendations Liquids Consistency Recommendations: [...] was able to self feed and answer ONSHORE DIVER's questions, though she did have minimal juice [...] no restrictions Liquids: Thin liquids: regular consistency ONSHORE DIVER Ready for Discharge: Yes Swallowing Treatment: Yes [...] are progressing unless otherwise indicated. Dysphagia Goals Fpc Goals: Safe/efficient oral intake Pt will have [...] of learning [] Refused Staci Meeks MS [facility] DIVER 09/02/18 12:15 PM ble Ha may MD - 09/02/2018 8:45 AM PDTFormatting of this note might be different from th e original. Progress Notes by Ha Aguayo MD at 09/02/18 0896 Author: Ha Aguayo MD Service: Hospitalist Author Type: Physician Filed: 09/04/18 1406 Date of Service: 09/02/18 1395 Status: Addendum Funeral Home Assistant: Ha Aguayo MD (Physician) Related Notes: Original Note by Ha Aguayo MD (Physician) filed at 09/02/18 5950 [facility] Service: Hospitalist Progress Note Hospital Day: LOS: 8 days Post-Op Day: 4 Days Post-Op Procedure: Procedure(s) (LRB): ESOPHAGOGASTRODUODENOSCOPY (N/A) Briefly, 48-year-old female with extensive past medical history most significant for alcoho l abuse, decompensated alcoholic cirrhosis (ascites and esophageal varices status post sachin ng 2010), hypertension and other chronic comorbidities who presents to [facility] from [facility] ER for hematemesis admitted for [...] of creatinine change. Pending results will con track oiler nephrology consultation. -No contrast-induced imaging identified per [...] 09/02/18525 Date of Service: 09/02/18525 Status: Signed Funeral Home Assistant: Ashley Esposito RN (Registered Nurse) Patient's vitals stable, no acute changes. End of shift audit complete. onver miriam Transaction, Provider Unknown - 09/01/2018 5:09 PM PDT Nurse Progress Note by Steve Mancuso RN at 09/01/181708 Author: Steve Mancuso RN Service: (none) Author Type: Registered Nurse Filed: 09/01/18 180 Date of Service: 09/01/181708 Status: Signed Funeral Home Assistant: Hindu J Mancuso, RN (Registered Nurse) Pt A&O [...] Date of Service: 09/01/18 1410 Status: Addendum Funeral Home Assistant: Ha Aguayo MD (Physician) Related Notes: Original Note by Ha Aguayo MD (Physician) filed at 09/01/18 1420 [facility] Service: Hospitalist Progress Note Hospital Day: LOS: 7 days Post-Op Day: 4 Days Post-Op Procedure: Procedure(s) (LRB): ESOPHAGOGASTRODUODENOSCOPY (N/A) Briefly, 48-year-old female with extensive past medical history most significant for alcoho l abuse, decompensated alcoholic cirrhosis (ascites and esophageal varices status post sachin ng 2010), hypertension and other chronic comorbidities who presents to [facility] from [facility] ER for hematemesis admitted for [...] stable. Per my discussion with the RN (Hindu) the patient is more awake alert and [...] 09/01/181113 Date of Service: 09/01/181113 Status: Signed Funeral Home Assistant: Princess Rodrigues RD (Registered Dietitian) 09/01/18 1006 [...] System (Mouth to Rectum) Pt with dysphagia; ONSHORE DIVER is following. Anthropometrics Weight change Current wt: 66.4 kg, up 1.4 kg from admit. Per I/O's, pt is fluid +5.7 L; wi ll monitor. Biochemical data, medical tests, and procedures reviewed Biochemical data, medical tests, and procedures reviewed Na 147 (H), Cr 1.3 (H) - pt with A KI; Ammonia 94 (H) - receiving lactulose; will monitor. Recommendations Recommended energy needs ONSHORE DIVER continue to follow and advance diet as [...] Note by Ashley Esposito RN at 09/01/18 0570 Author: Ashley Esposito RN Service: (none) Author Type: Registered Nurse Filed: 09/01/1846 Date of Service: 09/01/1845 Status: Signed Funeral Home Assistant: Ashley Esposito RN (Registered Nurse) Patient's vitals stable, no acute changes. End of shift audit complete. onver miriam Transaction, Provider Unknown - 08/31/2018 5:43 PM PDT Nurse Progress Note by Steve Mancuso RN at 08/31/18 0370 Author: Steve Mancuso RN Service: (none) Author Type: Registered Nurse Filed: 08/31/181801 Date of Service: 08/31/181742 Status: Signed Funeral Home Assistant: Steve Mancuso RN (Registered Nurse) Pt A&O [...] 08/31/181758 Date of Service: 08/31/18731 Status: Signed Funeral Home Assistant: Ha Aguayo MD (Physician) [facility] Service: Hospitalist Progress Note Hospital Day: LOS: 6 days Post-Op Day: 4 Days Post-Op Procedure: Procedure(s) (LRB): ESOPHAGOGASTRODUODENOSCOPY (N/A) Briefly, 48-year-old female with extensive past medical history most significant for alcoho l abuse, decompensated alcoholic cirrhosis (ascites and esophageal varices status post sachin ng 2010), hypertension and other chronic comorbidities who presents to [facility] from [facility] ER for hematemesis admitted for [...] stable. Per my discussion with the RN (Hindu) the patient is more awake alert and [...] The patient [facility] likely to occur on Saturday 09/02 [...] Inpatient Code Status: DNR/DNI aH Aguayo MD 08/31/2018 onversion Transact ion, Provider Unknown - 08/31/2018 4:46 AM PDTFormatting of this note might be different fr om the original. Progress Notes by Ahsan Solis RN at 08/31/18445 Author: Ahsan Solis RN Service: (none) Author Type: Registered Nurse Filed: 08/31/18445 Date of Service: 08/31/18445 Status: Signed Funeral Home Assistant: Ahsan Solis RN (Registered Nurse) No acute changes this shift. End of shift audits complete. Ahsan Solis RN onver miriam Transaction, Provider Unknown - 08/30/2018 5:20 PM PDT Nurse Progress Note by Steve Mancuso RN at 08/30/181719 Author: Steve Mancuso RN Service: (none) Author Type: Registered Nurse Filed: 08/30/18 1804 Date of Service: 08/30/181719 Status: Addendum Funeral Home Assistant: Hindu J Mancuso, RN (Registered Nurse) Related Notes: [...] Therapy Progress Note by Staci Meeks MS CCC-ONSHORE DIVER at 08/30/18 1537 Author: Staci Meeks MS CCC-ONSHORE DIVER Service: (none) Author Type: Speech and Language Pat hologist Filed: 08/30/18 1537 Date of Service: 08/30/187 Status: Signed Funeral Home Assistant: Staci Meeks MS CCC-ONSHORE DIVER (Speech and Language Pathologist) 08/30/18 1500 ONSHORE DIVER Last Visit ONSHORE DIVER Received On 08/30/18 Requires ONSHORE DIVER Follow Up Unavailable Attempted, pt receiving care from RN. Will re-attempt as census permits. Staci Meeks MS CCC-ONSHORE DIVER 08/30/18 3:37 PM a Moy MD - 08/30/2018 2:20 PM PDTFormatting of this note might be different from th e original. Progress Notes by Ha Aguayo MD at 08/30/18 1420 Author: Ha Aguayo MD Service: Hospitalist Author Type: Physician Filed: 08/30/181923 Date of Service: 08/30/18 1420 Status: Signed Funeral Home Assistant: Ha Aguayo MD (Physician) [facility] Service: Hospitalist Progress Note Hospital Day: LOS: 5 days Post-Op Day: 4 Days Post-Op Procedure: Procedure(s) (LRB): ESOPHAGOGASTRODUODENOSCOPY (N/A) Briefly, 48-year-old female with extensive past medical history most significant for alcoho l abuse, decompensated alcoholic cirrhosis (ascites and esophageal varices status post sachin ng 2010), hypertension and other chronic comorbidities who presents to [facility] from [facility] ER for hematemesis admitted for [...] Author: HANNAH Robertson Service: (none) Author Type: Accordion Repairer Filed: 08/30/18 1795 Date of Service: 08/30/18809 Status: Addendum Funeral Home Assistant: HANNAH Robertson (Accordion Repairer) Related Notes: Original Note by HANNAH Robertson (Accordion Repairer) filed at 08/30/18 0085 Referral sent to [facility] for SNF placement. [facility] [address] [place] [address] Ralph- Admissions CM attempted to reach [facility] at [facility]. A voicemail was left. Per [facility], pt has an insurance that will need authorization. Pt will not be able to discharg e over the weekend. CM on Sunday to follow up with [facility]. [facility] would also like to see how pt is doing on Sunday before accepting or declining pt. HANNAH Robertson erclSaritha DO - 08/29/2018 10:23 PM PDTFormatting of this note might be different from the orig inal. Progress Notes by Saritha Prado DO at 08/29/182222 Author: Saritha Prado DO Service: Hospitalist Author Type: Physician Filed: 08/29/182231 Date of Service: 08/29/182222 Status: Signed Funeral Home Assistant: Saritha Prado DO (Physician) Called by the [...] 0635 Date of Service: 08/29/182158 Status: Signed Funeral Home Assistant: Ahsan Solis RN (Registered Nurse) 2032- pt [...] 08/29/181844 Date of Service: 08/29/181839 Status: Signed Funeral Home Assistant: Concetta Alvarez RN (Registered Nurse) Pt oriented [...] HANNAH Denis at 08/29/18 163 Author: HANNAH Dneis Service: (none) Author Type: Accordion Repairer Filed: 08/29/18 1631 Date of Service: 08/29/18 163 Status: Signed Funeral Home Assistant: HANNAH Denis (Accordion Repairer) Discharge planning: Pending clinical course. Family is requesting [facility] if pt is needing a SNF. ana Ott i, MD - 08/29/2018 1:32 PM PDTFormatting of this note might be different fro m the original. Progress Notes by Zana Cho MD at 08/29/18 1332 Author: Zana Cho MD Service: Hospitalist Author Type: Physician Filed: 09/03/18 1520 Date of Service: 08/29/18 1332 Status: Addendum Funeral Home Assistant: Zana Cho MD (Physician) Related Notes: Original Note by Zana Cho MD (Physician) filed at 08/29/18 1441 [facility] Service: Hospitalist Progress Note Hospital Day: [...] hours. No results for input(s): PHART, PO2ART, BBZ5VNR, P7PNOXPS, BEART in the last 168 hours. Recent [...] the original. Progress Notes by Mendy Escobar Operating Room Rn at 08/29/18 1311 Author: Eric Gallegosetic Intern Service: (none) Author Type: Scottie livingston Filed: 08/29/18 1312 Date of Service: 08/29/18 1311 Status: Attested Funeral Home Assistant: Eric Gallegosetic Intern (Registered Dietitian) Cosigner: Jovana farrar RD at 08/29/18 1345 Attestation signed by Jovana Neal RD at 08/29/[address], CD 08/29/18 1052 Subjective Timepoint Admit Pt c/o Pt triggered for screening 2/2 dysphagia. Pt admitted for ETOH withdrawal and upper GI bleed. Pt on CIWA and GI following s/p EGD. ONSHORE DIVER following, moderate aspiration risk. Pt s leeping [...] Recommended energy needs Continue pureed diet per ONSHORE DIVER recommendations. Encourage PO intake with 1:1 feed assistance. House trays and supplement ordered, Boost Pudding (alternate ruddy late/vanilla) TID at snack times. Will continue to follow per nutrition protocol. Nutritional Risk Nutritional risk High Follow up date 09/01/18 Mendy Escobar, Operating Room Rn onver miriam Transaction, Provider Unknown - 08/29/2018 4:12 AM PDT Nurse Progress Note by Rosalinda Callahan RN at 08/29/18411 Author: Rosalinda Callahan RN Service: (none) Author Type: Registered Nurse Filed: 08/29/18 0643 Date of Service: 08/29/18411 Status: Addendum Funeral Home Assistant: Rosalinda Callahan RN (Registered Nurse) Related Notes: [...] 08/28/181807 Date of Service: 08/28/181746 Status: Signed Funeral Home Assistant: Concetta Alvarez RN (Registered Nurse) Pt oriented to person and sometimes date. Afebrile. BP elevated throughout shift. PRN labetalol given x1. PIV infiltrated. Midline placed. Per telephone cleaner, pt had 11 beats of PAT. MD notified. Strip in chart. Magnesium replaced for level of 1.5. Currently replacing potassium for level of 3.3. Max CIWA score was 8. Ativan not given. End of shift review complete. CONCETTA ALVAREZ RN eghan Tate MS CCC-ONSHORE DIVER - 08/28/2018 4:05 PM PDTFormatting of this note might be different f rom the original. Therapy Progress Note by Meghan Rodriguez MS CCC-ONSHORE DIVER at 08/28/18 1605 Author: Meghan Rodriguez MS CCC-ONSHORE DIVER Service: (none) Author Type: Speech and Language Pa thologist Filed: 08/28/18 1606 Date of Service: 08/28/18 1605 Status: Signed Funeral Home Assistant: Meghan Rodriguez MS CCC-ONSHORE DIVER (Speech and Language Pathologist) 08/28/18 1605 ONSHORE DIVER Last Visit ONSHORE DIVER Received On 08/28/18 Requires ONSHORE DIVER Follow Up On hold (not appropriate d/t mentation) Per MD, pt not appropriate at this time. ST to check back tomorrow. onversio n Transaction, Provider Unknown - 08/28/2018 1:35 PM PDTFormatting of this note might be di fferent from the original. Case Management by Jodie Sebastian RN at 08/28/181334 Author: Jodie Sebastian RN Service: (none) Author Type: Registered Nurse Filed: 08/28/18 3220 Date of Service: 08/28/181334 Status: Signed Funeral Home Assistant: Jodie Sebastian RN (Registered Nurse) CM attended [...] 08/28/181335 Date of Service: 08/28/181331 Status: Addendum Funeral Home Assistant: Zana Cho MD (Physician) Related Notes: Original Note by Zana Cho MD (Physician) filed at 08/28/18 116 [facility] Service: Hospitalist Progress Note Hospital Day: [...] hours. No results for input(s): PHART, PO2ART, GJG7LVA, Z3PRQUWR, BEART in the last 168 hours. Recent [...] 08/28/18699 Date of Service: 08/28/18453 Status: Signed Funeral Home Assistant: Rosalinda Callahan RN (Registered Nurse) Pt disoriented [...] 08/27/181946 Date of Service: 08/27/181928 Status: Addendum Funeral Home Assistant: Rosalinda Martinez RN (Registered Nurse) Related Notes: [...] Notes by Zana Cho MD at 08/27/18 5039 Author: Zana Cho MD Service: Hospitalist Author Type: Physician Filed: 08/27/18 1200 Date of Service: 08/27/18 2958 Status: Signed Funeral Home Assistant: Zana Cho MD (Physician) [facility] Service: Hospitalist Progress Note Hospital Day: [...] hours. No results for input(s): PHART, PO2ART, OEN1SYA, B5WBYBDC, BEART in the last 168 hours. Recent [...] from the original. Therapy Progress Note by Erica Venegas PT at 08/27/18 1125 Author: Erica Venegas PT Service: (none) Author Type: Physical Therapist Filed: 08/27/18 1130 Date of Service: 08/27/18 1125 Status: Signed Funeral Home Assistant: Erica Venegas PT (Physical Therapist) 08/27/18 1125 [...] Progress Notes by PERNELL Wallace at 08/27/18 1177 Author: PERNELL Wallace Service: Gastroenterology Author Type: Physician Assistan t - Certified Filed: 08/27/18 1214 Date of Service: 08/27/1837 Status: Attested Funeral Home Assistant: PERNELL Wallace (Physician Sizing Sprayer - Certified) Cosigner: Mitchell Stewart IV, MD at 08/27/182143 Attestation signed by Mitchell Stewart IV, MD at 08/27/182143 GASTROENTEROLOGY ATTENDING ATTESTATION The advanced practice provider made rounds on this patient. I did not formally evaluate pat ient in person today. We discussed the case and I agree with the assessment and plan as wri jenae. [facility] Service: Gastroenterology Consult Progress Note Hospital Day: LOS: 2 days SUBJECTIVE Patient Summary: Shaila Son is a 48 y.o. female Patient with ongoing alcohol abuse and history of alcohol associated cirrhosis with reporte dly remote variceal band ligation, ascites, episodes of hepatic encephalopathy, previous alc ohol associated seizures and withdrawal syndrome transferred to [facility] due to presenting to [facility] with episodes of coffee-ground emesis and ongoing [...] severe shakes. Alcohol level was elevated at [facility] but obviously not known how high [...] it. Claims she had x-rays done in [place]. Events Overnight: Had EGD and showed portal [...] 08/26/2018 INR 1.2 08/25/2018 INR 1.3 04/10/2016 [facility] GI Patient Name: Shaila SonDania Procedure Date: [...] 08/26/2018 5:27 PM Number of Addenda: 0 [facility] - Endoscopy Services PROBLEM LIST Principal Problem: [...] off at this time. Yareli Mckinnon PA-C [facility] Gastroenterology 08/27/2018 onversion Transa ction, Provider Unknown - 08/27/2018 6:00 AM PDT Nurse Progress Note by Sandi Melgar RN at 08/27/18599 Author: Sandi Melgar RN Service: (none) Author Type: Registered Nurse Filed: 08/27/18603 Date of Service: 08/27/18599 Status: Signed Funeral Home Assistant: Sandi Melgar RN (Registered Nurse) Pt A&Ox4, VSS, afebrile. PRN ativan given per CIWA score and orders. Pt has auditory and visual hallucinations at times. Walking boot on to protect foot/leg. 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 ABD remains distended but soft and active [...] 08/26/181809 Date of Service: 08/26/181806 Status: Addendum Funeral Home Assistant: Josie Tovar RN (Registered Nurse) Related Notes: [...] Date of Service: 08/26/18 1639 Status: Signed Funeral Home Assistant: Josie Tovar RN (Registered Nurse) Patient was given 10mg labetalol right before going down for procedure, passed on to OPP, t hey will recheck BP downstairs. JSOIE TOVAR RN onver miriam Transaction, Provider Unknown - 08/26/2018 4:20 PM PDT Case Management by Jodie Sebastian RN at 08/26/18 1620 Author: Jodie Sebastian RN Service: (none) Author Type: Registered Nurse Filed: 08/26/18 1628 Date of Service: 08/26/18 1620 Status: Addendum Funeral Home Assistant: Jodie Sebastian RN (Registered Nurse) Related Notes: [...] Vazquez Relationship to Patient boyfriend Phone number [phone] Mental Status Confused Prior functional status needs [...] (TBD) CM contacted pt's brother Viktor Son #[phone] as pt is currently confused and dis cussed discharge planning, per Viktor pt is a 48 y.o., female who lives with her boyfriend Kendal Vazquez #[phone] and he assists in pt's care. Viktor is unsure of pt's housing si tuation or if she has a POA. Pt needs assist with ADL's and uses a walker or wheelchair for ambulation. Pt does not use oxygen or anticoagulation. Patient's PCP is: Ana M Brush Patient's insurance: Medicaid/ [employer] Coverage concerns: no Medication coverage/concerns: no [...] Date of Service: 08/26/18 1533 Status: Signed Funeral Home Assistant: Josie Tovar RN (Registered Nurse) Spoke to [...] Progress Notes by Zana Cho MD at 08/26/18 6020 Author: Zana Cho MD Service: Hospitalist Author Type: Physician Filed: 08/27/18 1149 Date of Service: 08/26/18 1410 Status: Signed Funeral Home Assistant: Zana Cho MD (Physician) Related Notes: Original Note by Zana Cho MD (Physician) filed at 08/26/18 1413 [facility] Service: Hospitalist Progress Note Hospital Day: [...] hours. No results for input(s): PHART, PO2ART, INS7JSG, H3RCEIHG, BEART in the last 168 hours. Recent [...] Date of Service: 08/26/18 1210 Status: Signed Funeral Home Assistant: Jodie Sebastian RN (Registered Nurse) Pt is [...] Date of Service: 08/26/18 1205 Status: Signed Funeral Home Assistant: Josie Tovar RN (Registered Nurse) Received a call this AM from Conner Vazquez, this person stated he was caring for patient f or past few months. Per patient, when awake, was able to state that she knew Conner and was ok with information being shared with him. Conner states he has the patients brothers number whom lives in [place], but did not have it on hand. He will call back and give us the number as soon as he can. Biju'ls number are [phone] or [phone]. JOSIE TOVAR RN onver miriam Transaction, Provider Unknown - 08/26/2018 6:18 AM PDT Nurse Progress Note by Sandi Melgar RN at 08/26/18617 Author: Sandi Melgar RN Service: (none) Author Type: Registered Nurse Filed: 08/26/18625 Date of Service: 08/26/18617 Status: Signed Funeral Home Assistant: Sandi Melgar RN (Registered Nurse) Pt A&Ox3, [...] 08/25/181949 Date of Service: 08/25/181946 Status: Signed Funeral Home Assistant: Princess Bower, RN (Registered Nurse) Pt transferred [...] 08/25/181699 Date of Service: 08/25/181699 Status: Signed Funeral Home Assistant: Elida Cruz RPH (Pharmacist) Renal Dosing Monitoring: [...] 08/26/181722 Date of Service: 08/26/181721 Status: Signed Funeral Home Assistant: Mitchell Stewart IV, MD (Physician) [facility] Service: Gastroenterology Service Pre-procedure History & Physical Update Patient Name: Shaila Son Date of Admission: 08/26/2018 On reexamination of the patient and patient's chart today, there are no changes. Moderate Sedation Presedation Assessment completed. ASA Classification: Per Anesthesia Service Mallampati Classification: Per Anesthesia Service Tod Stewart IV, M.D. [facility] Gastroenterology 08/26/2018 aulina Wu M D - 08/25/2018 3:10 PM PDT H&P by Paulina Wu MD at 08/25/181509 Author: Paulina Wu MD Service: Hospitalist Author Type: Physician Filed: 08/25/182135 Date of Service: 08/25/181509 Status: Addendum Funeral Home Assistant: Paulina Wu MD (Physician) Related Notes: Original Note by Paulina Wu MD (Physician) filed at 08/25/181815 [facility] Service: Hospitalist Admission History & Physical Pt: [...] s/p banding in 2010, HTN presented to [facility] ED for hematemesis, transferred here for GI [...] and request for transfer was made to [facility] ED. Active comorbid conditions include: - essential [...] ESOPHAGOGASTRODUODENOSCOPY; Surgeon: Mitchell Stewart IV, MD; Location: [facility]; Service: Gastroenterology; Laterality: N/A; anesthesia assist if available since may be difficult to sedate Hx of tracheostomy Allergies Allergen Reactions Aspirin Anaphylaxis Pt unable to recall, this information came from [facility] record Lactose Anaphylaxis Pt unable to recall, this information came from [facility] record Ciprofloxacin Other (See Comments) Pt. Unable to recall, this information came from [facility] record Ibuprofen Other (See Comments) Pt. Unable to recall, this information came from [facility] record Prior to Admission medications Medication [...] original. Procedures by SHANIA Panchal at 09/03/18 2792 Author: SHANIA Panchal Service: Radiology Author Type: Advanced Registered Nurse Sonam buck Filed: 09/03/18 0425 Date of Service: 09/03/18 9150 Status: Signed Funeral Home Assistant: SHANIA Panchal (Advanced Registered Nurse Practitioner) Pre-procedure Diagnoses: 1. Other ascites [R18.8] Post-procedure Diagnoses: 1. Other ascites [R18.8] Procedures: 1. PARACENTESIS [YQV126 (Custom)] Therapeutic and diagnostic ultrasound-guided paracentesis performed at bedside. 3000 mL of clear, yellow fluid removed. Patient tolerated procedure well, vital signs remained stable throughout the procedure. No immediate post procedural complications encountered. See dictation for full details. SHANIA Panchal 09/03/2018 1:03 PM Mitchell Rose MD - 08/26/2018 5:27 PM PDT Procedures signed by at 08/26/18 9130 Author: Mitchell Stewart IV, MD Service: Gastroenterology Author Type: Physician Filed: 08/26/18 8163 Date of Service: 08/26/18 4359 Status: Signed Funeral Home Assistant: Mitchell Stewart IV, MD (Physician) Procedure Orders: 1. EGD [[id number]] ordered by Mitchell Stewart IV, MD at 08/26/18 1650 documented in th is encounter Consult Notes Mitchell Stewart MD - 08/25/2018 4:03 PM PDT Consult* by Mitchell Stewart IV, MD at 08/25/18 1603 Author: Mitchell Stewart IV, MD Service: Gastroenterology Author Type: Physician Filed: 08/25/18 1711 Date of Service: 08/25/18 1603 Status: Signed Funeral Home Assistant: Mitchell Stewart IV, MD (Physician) [facility] Gastroenterology Service Initial Inpatient Consult Note Date [...] associated seizures and withdrawal syndrome transferred to [facility] due to presenting to [facility] with episodes of coffee-ground emesis and ongoing [...] severe shakes. Alcohol level was elevated at [facility] but obviously not known how high [...] it. Claims she had x-rays done in [place]. Pt being transferred from [facility]. Report from Julio SANDOVAL. Pt [...] de drip not started prior to leaving [facility] due to limited IV access. [...] unable to recall, this information came from [facility] record Lactose Anaphylaxis Pt unable to recall, this information came from [facility] record Ciprofloxacin Other (See Comments) Pt. Unable to recall, this information came from [facility] record Ibuprofen Other (See Comments) Pt. 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 At some point obviously varices must [...] follow with you. Tod Stewart IV, M.D. [facility] Gastroenterology 08/25/2018 This note was dictated using GoAlbert voice recognition software. Document was reviewed at ti me of dictation but [id number] errors may be present. Please call with [...] 1353 Date of Service: 08/25/181336 Status: Signed Funeral Home Assistant: Jose Roach RN (Registered Nurse) Pt transferred from [place] ER with low H+H from GI bleed, sequela to ETOH. Pt has weak voice but is A+Ox 3. athes on, Ajay Rice MD - 08/25/2018 1:35 PM PDT ED Provider Notes by Ajay Spear MD at 08/25/18 4383 Author: Ajay Spear MD Service: Emergency Department Author Type: Physician Filed: 08/25/18 8795 Date of Service: 08/25/181334 Status: Signed Funeral Home Assistant: Ajay Spear MD (Physician) Procedure Orders: 1. Critical Care [[id number]] ordered by Paulina Wu MD at 08/25/18 1700 [facility] Department of Emergency Medicine Pre-arrival Provider: Another [...] modifying factors are reported. Was seen at [facility] for the same and was given a unit of blood and had ascites fluid drawn. Reportedl y had seizures there. Patient also complains of seizures, vomiting, diarrhea, and abdominal pain. Patient denies bloody stools, fever, or any other symptoms at this time. 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 Past Medical History Diagnosis Date Anemia Hemorrhage of gastrointestinal tract, unspecified Hypertension Liver disease Seizures (HCC) Past Surgical History Procedure Laterality Date BACK SURGERY ESOPHAGOGASTRODUODENOSCOPY N/A 07/30/2011 Procedure: ESOPHAGOGASTRODUODENOSCOPY; Surgeon: Mitchell Stewart IV, MD; Location: [facility]; Service: Gastroenterology; Laterality: N/A; anesthesia assist [...] unable to recall, this information came from [facility] record Lactose Anaphylaxis Pt unable to recall, this information came from [facility] record Ciprofloxacin Other (See Comments) Pt. Unable to recall, this information came from [facility] record Ibuprofen Other (See Comments) Pt. Unable to recall, this information came from [facility] record Social History Social History Marital [...] sore throat CV/Resp: Negative for chest pain, ngoebgdmn-ym-rwhawu, cough GI: Positive for hematemesis Positive for [...] reports some generalized abdominal pain. Seen at [facility] where she was evaluated. She had 6L [...] 0.069. 2:24 PM Spoke with RAMÓN Everett fire control assistant, who is familiar with the pt. Anticipates likely s cope tomorrow as long as she remains stable. Agrees with plan for admission to Hospitalist shanea tolentino.. 2:[address] 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 -- [id number] Testing performed at [facility] [place] [address];[place] [address] Ammonia level [[id number]] Collected: 08/25/18 1407 Order Status: Completed Specimen: Blood Updated: 08/25/18 1441 AMMONIA 32 <33 umol/L Troponin I, Lab [[id number]] (Abnormal) Collected: 08/25/18 1345 Order Status: Completed Specimen: Blood Updated: 08/25/18 1414 TROPONIN I 0.069 (H) 0.00 - 0.04 ng/mL Magnesium [[id number]] (Abnormal) Collected: 08/25/18 1345 Order Status: Completed Specimen: Blood Updated: 08/25/18 1414 MAGNESIUM 1.5 (L) 1.7 - 2.4 mg/dL Blood alcohol level (ethanol) [[id number]] (Abnormal) Collected: 08/25/181344 Order Status: Completed Updated: 08/25/181413 ALCOHOL,ETHYL 59 (H) <10 mg/dL Cardiac Panel [[id number]] (Abnormal) Collected: 08/25/181344 Order Status: Completed Updated: [...] Rhythm- sinus tachycardia Normal P waves, normal IL interval, normal QRS, nonspecific ST and T [...] 08/25/181325 Date of Service: 08/25/181325 Status: Signed Funeral Home Assistant: Alice Murrell RN (Registered Nurse) Bed: 05 Expected date: Expected time: Means of arrival: Comments: Luis E chiu. Alice Murrell RN 08/25/18 1326 onver miriam Transaction, Provider Unknown - 08/25/2018 1:00 PM PDT ED Triage Notes by Alice Murrell RN at 08/25/18 1300 Author: Alice Murrell RN Service: (none) Author Type: Registered Nurse Filed: 08/25/18 1320 Date of Service: 08/25/18 1300 Status: Signed Funeral Home Assistant: Alice Murrell RN (Registered Nurse) Pt being transferred from [facility]. Report from Julio SANDOVAL. Pt [...] 09/05/1828 Date of Service: 09/05/1828 Status: Signed Funeral Home Assistant: Alba Boss RN (Registered Nurse) Problem: Risk [...] Date of Service: 09/04/18 1528 Status: Signed Funeral Home Assistant: Philipp Sargent RN (Registered Nurse) Elimination Elimination [...] the original. Plan of Care by Chadwick Mudrock RN at 09/04/18 0525 Author: Chadwick Murdock RN Service: (none) Author Type: Registered Nurse Filed: 09/04/18524 Date of Service: 09/04/18524 Status: Signed Funeral Home Assistant: Chadwick Mudrock RN (Registered Nurse) Problem: Pain Goal: Patient's [...] 09/03/181746 Date of Service: 09/03/181746 Status: Signed Funeral Home Assistant: Rosalinda Sanz RN (Registered Nurse) Problem: Elimination [...] 09/03/18310 Date of Service: 09/03/18310 Status: Signed Funeral Home Assistant: Ashley Esposito RN (Registered Nurse) Problem: Safety [...] 09/02/181432 Date of Service: 09/02/181432 Status: Signed Funeral Home Assistant: Rosalinda Sanz RN (Registered Nurse) Problem: Elimination [...] 09/02/18441 Date of Service: 09/02/18441 Status: Signed Funeral Home Assistant: Ashley Esposito RN (Registered Nurse) Problem: Safety [...] 09/01/181707 Date of Service: 09/01/181707 Status: Signed Funeral Home Assistant: Steve Mancuso RN (Registered Nurse) Problem: Safety [...] 09/01/18502 Date of Service: 09/01/18502 Status: Signed Funeral Home Assistant: Ashley Esposito RN (Registered Nurse) Problem: Safety [...] 08/31/181742 Date of Service: 08/31/181742 Status: Signed Funeral Home Assistant: Steve Mancuso RN (Registered Nurse) Problem: Safety [...] 08/31/18130 Date of Service: 08/31/18130 Status: Signed Funeral Home Assistant: Ahsan Solis RN (Registered Nurse) Problem: Elimination [...] 08/30/181718 Date of Service: 08/30/181718 Status: Signed Funeral Home Assistant: Steve Mancuso RN (Registered Nurse) Problem: Safety [...] 08/30/1844 Date of Service: 08/30/1844 Status: Signed Funeral Home Assistant: Ahsan Solis RN (Registered Nurse) Problem: Discharge [...] 1623 Date of Service: 08/29/181509 Status: Signed Funeral Home Assistant: Erica Venegas PT (Physical Therapist) PHYSICAL THERAPY EVALUATION PT Received On: 08/29/18 Reason for Treatment: Deconditioning, LE fracture (GIB, CIWA, recent R tib/fib fx) Requires PT Follow Up: Yes PT Eval/Reassessment Date: 08/29/18 Recommendations: SNF Equipment Recommended: (TBD) Barriers to Discharge: Physical Deficits Impacting Functional Christian, Self-care Defic its Impacting Functional Christian, Lack of Family Support/Training (limited help at [...] a 48 y.o. female who presents to [facility] for hematemesis and admitted for [...] session as able. Prior Function Level of Christian: Assist with functional mobility, Assist with ADLs, [...] minimal assist, With standby assist Low - 82336 Moderate - 84517 High - 75905 History [] no personal factors &/or comorbidities [] 1-2 personal factors &/or comorbiditi es [x] 3 or more personal factors &/or comorbidities Examination [] 1-2 elements [x] 3 elements [] 4 or more elements Clinical Presentation [] stable [x] evolving [] unstable Clinical Decision Making Complexity: [] Low 38600 [x] Moderate 08327 [] High 9 7163 Past Medical History Diagnosis Date Anemia Hemorrhage of gastrointestinal tract, unspecified Hypertension Liver disease Seizures (HCC) lan o f Care - Conversion Transaction, Provider Unknown - 08/29/2018 10:53 AM PDTFormatting of thi s note might be different from the original. Plan of Care by SN Lisa at 08/29/18 105 Author: SN Lisa Service: (none) Author Type: Demonstrator Sewing Techniques Filed: 08/29/18 1053 Date of Service: 08/29/181052 Status: Signed Funeral Home Assistant: SN Lisa (Demonstrator Sewing Techniques) Problem: Pain Goal: Patient's pain/discomfort is manageable [...] original. Treatment Plan by Rashid Ryder MS CCC-ONSHORE DIVER at 08/29/18729 Author: Rashid Ryder MS CCC-ONSHORE DIVER Service: (none) Author Type: Speech and Language Pat hologist Filed: 08/29/1812 Date of Service: 08/29/18729 Status: Signed Funeral Home Assistant: Rashid Ryder MS CCC-ONSHORE DIVER (Speech and Language Pathologist) BEDSIDE SWALLOW ONSHORE DIVER Last Visit ONSHORE DIVER Received On: 08/29/18 Requires ONSHORE DIVER Follow Up: Yes Recommendations Liquids Consistency Recommendations: [...] are progressing unless otherwise indicated. Dysphagia Goals Fpc Goals: Safe/efficient oral intake Pt will have [...] a nd stated understanding. Rashid Ryder MS [facility] DIVER lan o f Care - Conversion Transaction, Provider Unknown - 08/28/2018 10:31 PM PDTFormatting of alisha s note might be different from the original. Plan of Care by Rosalinda Callahan RN at 08/28/182230 Author: Rosalinda Callahan RN Service: (none) Author Type: Registered Nurse Filed: 08/28/182230 Date of Service: 08/28/182230 Status: Signed Funeral Home Assistant: Rosalinda Callahan RN (Registered Nurse) Problem: Elimination [...] 08/28/181144 Date of Service: 08/28/181144 Status: Signed Funeral Home Assistant: Concetta Alvarez RN (Registered Nurse) Problem: Fluid [...] Rosalinda Callahan RN at 08/27/182301 Author: Rosalinda Callahan RN Service: (none) Author Type: Registered Nurse Filed: 08/27/182301 Date of Service: 08/27/182301 Status: Signed Funeral Home Assistant: Rosalinda Callahan RN (Registered Nurse) Problem: Pain [...] 08/27/181555 Date of Service: 08/27/181555 Status: Signed Funeral Home Assistant: Rosalinda Martinez RN (Registered Nurse) Problem: Safety [...] 08/27/1835 Date of Service: 08/27/1835 Status: Signed Funeral Home Assistant: Sandi Melgar RN (Registered Nurse) Problem: Safety [...] 08/26/181751 Date of Service: 08/26/181751 Status: Signed Funeral Home Assistant: Mitchell Stewart IV, MD (Physician) [facility] Service: Gastroenterology Operative Note Procedure note was [...] 08/26/181754 Date of Service: 08/26/181726 Status: Signed Funeral Home Assistant: Mitchell Stewart IV, MD (Physician) Patient Instructions [...] 08/26/181157 Date of Service: 08/26/181157 Status: Signed Funeral Home Assistant: Josie Tovar RN (Registered Nurse) Problem: Safety [...] 08/26/18145 Date of Service: 08/26/18145 Status: Signed Funeral Home Assistant: Sandi Melgar RN (Registered Nurse) Problem: Safety [...] 08/25/181541 Date of Service: 08/25/181541 Status: Signed Funeral Home Assistant: Sharri Leon RPH (Pharmacist) Rx Admission Medication History Note Pharmacy is unable to obtain best possible medication history at this time. Thanks Sharri Leon, PharmD, [facility] >> Arielle Sellers CPhT 08/25/2018 14:38 Patient [...] | | | Random | performed at [facility], [address] | [address], | | | | | | [place] [address] | | | | + + + [...] LAB | | | | performed at [facility], [address], | | | | | | [place] [address] | | | | + + + [...] EXTERNAL | | | | performed at [facility], [address] | | LAB | | | | [address], | | | | | | [place] [address] | | | | + + + [...] | | | | | | MDRD IDUT traceable | | | | | | equation.Testing | | | | | | performed at [facility], [address] | | | | | | [facility], | | | | | | [place] [address] | | | | + + + [...] EXTERNAL | | | | performed at [facility], [address] | | LAB | | | | [address], | | | | | | [place] [address] | | | | + + + [...] | | | | | | MDRD IDUT traceable | | | | | | equation.Testing | | | | | | performed at [facility], [address] | | | | | | [facility], | | | | | | [place] [address] | | | | + + + [...] 100 Testing | | | performed at [facility] [facility];[place] [address] | | + + + + +---------+ [...] | EXTERNAL LAB | | not a tow motor mechanic validated sample type for this method. No reference | | | ranges have been established. Testing performed at [facility], [address] | | | [place] [address] FLUID TP SOURCE | | | ASCITES FLUID Testing performed at [facility];[address] | | [facility];[place] [address] | | + + + + +---------+ [...] | EXTERNAL LAB | | not a tow motor mechanic validated sample type for this method. No | | | reference ranges have been established. Testing performed at [facility], | | | [address] [place] [address] | | + + + + +---------+ [...] recognition system. The possibility of "sound alike" vault custodian | | | errors, addition and/or deletions [...] The | | possibility of "sound alike" vault custodian errors, addition and/or deletions may occur. | [...] system. The possibility of "sound a like" vault custodian errors, addition and/or deletions may occur. If [...] EXTERNAL | | | | performed at [facility], [address] | | LAB | | | | [address], | | | | | | [place] [address] | | | | + + + [...] | | | Patient | performed at [facility];[address] | | LAB | | | [address];[place] | | | | | | [address] | | | | + + + [...] | | | | | performed at [facility] | | | | | | [address];[place] | | | | | | [address] | | | | + + + [...] | | | | | performed at [facility], [address] | | | | | | [facility], | | | | | | [place] [address] | | | | + + + [...] | | | | | [place] [address] | | | | + + + [...] EXTERNAL | | | | performed at [facility], [address] | | LAB | | | | [address], | | | | | | [place] [address] | | | | + + + [...] EXTERNAL | | | | performed at [facility], [address] | | LAB | | | | Katie [address], | | | | | | [place] [address] | | | | + + + [...] | | | | | performed at [facility], [address] | | | | | | [facility], | | | | | | [place] [address] | | | | + + + [...] | | | Random | performed at [facility], [address] | | | | | [address] Katie [facility], | | | | | | [place] [address] | | | | + + + [...] LAB | | | | performed at [facility], [address] | | | | | | [address], | | | | | | [place] [address] | | | | + + + [...] EXTERNAL | | | | performed at [facility], [address] | | LAB | | | | [address], | | | | | [place] [address] | | | | + + + [...] EXTERNAL | | | | performed at [facility], [address] | | LAB | | | | Katie [address], | | | | | | [place] [address] | | | | + + + [...] | | | | | performed at [facility], [address] | | | | | | [facility], | | | | | | [place] [address] | | | | + + + [...] LAB | | | | performed at [facility];[address] | | | | | | [address];[place], [place] | | | | | | [address] | | | | + + + [...] | | | | | performed at [facility];[address] | | | | | | [facility];[place], [place] | | | | | | [address] | | | | + + + [...] | | | | | [place] [address] | | | | + + + [...] | | | Reticulocyt | performed at [facility];[address] | | LAB | | | e Count | Rosa [facility];[place], [place] | | | | | | [address] | | | | + + + [...] | | | Basophils | performed at [facility], [address] | K/uL | LAB | | | | [facility], | | | | | | [place] [address] | | | | + + + [...] EXTERNAL | | | | performed at [facility], [address] | | LAB | | | | Katie [address], | | | | | | [place] [address] | | | | + + + [...] | | | External | performed at [facility], [address] | | LAB | | | | Katie [address], | | | | | | [place] [address] | | | | + + + [...] | | | | | performed at [facility], [address] | | | | | | [facility], | | | | | | [place] [address] | | | | + + + [...] LAB | | | | performed at [facility];[address] | | | | | | [address];[place], [place] | | | | | | [address] | | | | + + + [...] EXTERNAL | | | | performed at [facility], [address] | | LAB | | | | [address], | | | | | | [place] [address] | | | | + + + [...] | | | | | [place] [address] | | | | + + + [...] | | | | | | MDRD IDUT traceable | | | | | | equation.Testing | | | | | | performed at [facility], [address] | | | | | | [facility], | | | | | | [place] [address] | | | | + + + [...] EXTERNAL | | | | performed at [facility];[address] | mmol/L | LAB | | | | [address];[place] | | | | | | [address] | | | | + + + [...] | | | | | performed at [facility];[address] | | | | | | [facility];[place], [place] | | | | | | [address] | | | | + + + [...] | | | Basophils | performed at [facility], [address] | K/uL | LAB | | | | [address], | | | | | | [place] [address] | | | | + + + [...] | | | | | | [place] [address] | | | | + + + [...] | | | | | [place] [address] | | | | + + + [...] EXTERNAL | | | | performed at [facility], [address] | | LAB | | | | Katie [address], | | | | | | [place] [address] | | | | + + + [...] EXTERNAL | | | | performed at [facility];[address] | mmol/L | LAB | | | | [address];[place], [place] | | | | | | [address] | | | | + + + [...] EXTERNAL | | | | performed at [facility];[address] | | LAB | | | | [address];[place] | | | | | | [address] | | | | + + + [...] EXTERNAL | | | | performed at [facility];[address] | | LAB | | | | [address];[place], [place] | | | | | | [address] | | | | + + + [...] | | | Basophils | performed at [facility];[address] | K/uL | LAB | | | | [address];[place] | | | | | | [address] | | | | + + + [...] EXTERNAL | | | | performed at [facility], [address] | | LAB | | | | Katie [address], | | | | | | [place] [address] | | | | + + + [...] EXTERNAL | | | | performed at [facility], [address] | | LAB | | | | Katie [address], | | | | | | [place] [address] | | | | + + + [...] W | | | | | | [facility], | | | | | | [place] [address] | | | | + + + [...] | | | Basophils | performed at [facility];[address] | K/uL | LAB | | | | [address];[place], [place] | | | | | | [address] | | | | + + + [...] EXTERNAL | | | | performed at [facility], [address] | | LAB | | | | [address], | | | | | | [place] [address] | | | | + + + [...] EXTERNAL | | | | performed at [facility], [address] | | LAB | | | | [address], | | | | | | [place] [address] | | | | + + + [...] | | | | | performed at [facility], [address] | | | | | | [facility], | | | | | | [place] [address] | | | | + + + [...] + + | Historically converted procedure from [facility] Epic environment | EXTERNAL LAB | | [facility] | | | | | | [...] Number of | | | Addenda: 0 [facility] | | | Services | [...] EXTERNAL | | | | performed at [facility];[address] | | LAB | | | | [address];[place] | | | | | | [address] | | | | + + + [...] Signed by: | | | Sukhwinder Ya, Shuan Sign Date/Time: 08/26/2018 8:41 AM | | [...] | | | POC | performed at [facility];[address] | | LAB | | | | [address];[place] | | | | | | [address] | | | | + + + [...] EXTERNAL | | | | performed at [facility];[address] | mmol/L | LAB | | | | [address];[place] | | | | | | [address] | | | | + + + [...] EXTERNAL | | | | performed at [facility];[address] | | LAB | | | | [address];[place], [place] | | | | | | [address] | | | | + + + [...] EXTERNAL | | | | performed at [facility];[address] | mmol/L | LAB | | | | [address];[place] | | | | | | [address] | | | | + [...] EXTERNAL | | | | performed at [facility];[address] | | LAB | | | | Ambrosio [facility];[place], [place] | | | | | | [address] | | | | + + + [...] | | | Patient | performed at [facility] | | LAB | | | | [address];[place] | | | | | | [address] | | | | + + + [...] | | | | | performed at [facility];[address] | | | | | | [facility];[place], [place] | | | | | | [address] | | | | + + + [...] | | | Basophils | performed at [facility];[address] | K/uL | LAB | | | | [address];[place], [place] | | | | | | [address] | | | | + + + [...] EXTERNAL | | | | performed at [facility], [address] | uIU/mL | LAB | | | | [address], | | | | | | [place] [address] | | | | + + + [...] EXTERNAL | | | | performed at [facility], [address] | | LAB | | | | [address], | | | | | | [place] [address] | | | | + + + [...] | | | | | | MDRD [facility] traceable | | | | | | equation.Testing | | | | | | performed at [facility], [address] | | | | | | [facility], | | | | | | [place] [address] | | | | + + + [...] | | | POC | performed at [facility];[address] | | LAB | | | | [address];[place], [place] | | | | | | [address] | | | | + + + [...] | | | POC | performed at [facility];[address] | | LAB | | | | [address];[place], [place] | | | | | | [address] | | | | + + + [...] EXTERNAL | | | | performed at [facility];[address] | mmol/L | LAB | | | | [address] Simon;[place], [place] | | | | | | [address] | | | | + + + [...] EXTERNAL | | | | performed at [facility];[address] | | LAB | | | | [address];[place] | | | | | | [address] | | | | + + + [...] | | | | | ONLY, -COMPUTER (594), | | | | | | field map editor Fabiana Morrison | | | | | | (79) on 08/26/2018 | | | | | | 4:05:38 AM | | | | + + + + + + + + | Specimen | + + | | + + + + + | Narrative | Performed At | + + + | [facility] | EXTERNAL LAB | + + [...] + + + | BB BAND | [id number] | | EXTERNAL | | | | performed at [facility];[address] | | LAB | | | | [address];[place] | | | | | | [address] | | | | + + + [...] EXTERNAL | | | | performed at [facility];[address] | | LAB | | | | [address];[place] | | | | | | [address] | | | | + + + [...] at | | | | | | [facility];[address] [place] [address] | | | | | | [facility];[place] [address] | | | | + + + [...] EXTERNAL | | | | performed at [facility];[address] | | LAB | | | | [address];[place], [place] | | | | | | [address] | | | | + + + [...] | | | Alcohol | performed at [facility];[address] | | LAB | | | | [address];[place], [place] | | | | | | [address] | | | | + + + [...]
--- OUTSIDE RECORDS SUMMARY | ~2020-01-23 | XMS | Encounter Summary ---
Demographics + + + | Address | [address] | | | [place] [address] | + + + | Home Phone [...] Author + + + | Author | [facility] | | | and [place] | + + + | Organization | [facility] | | | and [place] | + + + | Address | Unknown | + + + | Phone | Unavailable | + + + Support + + + + + | Name | Relationship | Address | Phone | + + + + + | Joanne Pham | ECON | [address] | | | | | [place] | | | | | [address] | | + + + + + | Viktor Son | EDDIE | Unknown | | + + + + + | Edd Gill | ECON | Unknown | | + + + + + | Conner Barber | ECON | Unknown | | + + + + + Care Team Providers + +------+ + | Care Steam Blocker Name | Role | Phone | + [...] | | | [address] | [place] [address] | | | | | [place], [place] | [phone] | | | | | [address] | | | | | | [phone] | | | +--------+ + + + [...] 11:19 AM PDTCalled [facility] at [phone]. Spoke to Rox, she was able to [...] give me an updated # for them [phone]. I will call to coordinate apt. E lectronically signed by Princess Parsons at 08/28/2019 10:31 AM PDTTelephone Encounter - Lavern Varela - 08/27/2019 1:52 PM PDTMichael, is calling again for Referral and would like a call back. Additional Call Details: Michael, from [facility], Calling to schedule from Referral Can mandi jacobson reached at [phone] elephone Encounter - Julia Causey - 08/27/2019 9:40 AM PDTMichael, is returning call for Referral and would like a call back. Additional Call Details: Provided information on the phone number for where patient is loc ated. Correct phone number [phone] elephone Encounter - Deborah Rivero - 08/22/2019 11:53 AM PDTAttempted to call number provided by tahira Rodriguez ed following message *we are sorry you have reached a number that has been disconnected or i s no longer in service* elephone Encounter - Katina Manriquez - 08/20/2019 2:14 PM PDTMicabby- Melita [facility], is madelin ng again for Referral and would like a call back. Additional Call Details: Caller states patient is currently in an assisted living home [facility] in [place] and can assist with transportation of patient. Can call to schedule at [phone]. States anyone who answers can assist. elephone Encounter - Deborah Rivero - 08/13/2019 3:12 PM PDTReturned Michael's call, she stated patient had a ne w number to call [phone]. She stated patient still needed to be [...] She then stated she might have a lighting designer that might assist her with this and [...] transfer the call to a miguelina mueller brush holder inspector was caller made aware that if at any time she feels it is an emergency they sh ould call 911 or go to the nearest emergency room? not applicable documented in this encounter Plan of Treatment Not on filedocumented as of this encounter Visit Diagnoses Not on filedocumented in this encounter"
--- OUTSIDE RECORDS SUMMARY | ~2020-01-23 | XMS | Encounter Summary ---
Demographics + + + | Address | [address] | | | [place] [address] | + + + | Home Phone | | + + + | Preferred Language | Unknown | + + + | Marital Status | Single | + + + | Amish Affiliation | [id number] | + + + [...] + | Joanne Pham | ECON | [address] | | | | | [place] | | | | | [address] | | + + + + + | Viktor Son | EDDIE | Unknown | | + + + + + | Edd Gill | ECON | Unknown | | + + + + + | Conner Barber | ECON | Unknown | | + + + + + Care Team Providers + +------+ + | Care Lubrication Servicer Name | Role | Phone | + [...] | +--------+ + + + + | 08/31/ | Hospital | [facility] | Marialuisa Roman, | Alcohol dependence | | 2016 - | Encounter | [facility] | [address] | with intoxication | | | | [address] [place] | [place], [place] | with complication | | 09/09/ | | [place] [address] | [id number] | (HCC) (Primary Dx); | | 2015 | | [phone] | | Anemia, unspecified | | | | | Grant Lomas MD | type; Ascites due to | | | | | [address] | alcoholic cirrhosis | | | | | [place], [place] | (HCC); | | | | | [id number] | Hyponatremia; | | | | | | Hepatic [...] + + + | Blood Pressure | 108/68 | 09/10/2015 8:00 AM | | | | | PDT | | + + + + + | Pulse | 75 | 09/10/2015 8:00 AM | | | | | PDT | | + + + + + | Temperature | 37.2 C (99 F) | 09/10/2015 8:00 AM | | | | | PDT | | + + + + + | Respiratory Rate | 16 | 09/10/2015 8:00 AM | | | | | PDT | | + + + + + | Oxygen Saturation | 98% | 09/10/2015 8:00 AM | | | | | PDT [...] ascites and hyponatremia who was transferred from [facility]. She was found to have severe weakness [...] hemodynamically stable and is being discharged to [facility] with continued aldactone, lasix, blood pressure control for portal hypertension and lactulos e. Follow-up at [facility] with Juan Holguin. This patient's pathology report will be forwarded from Dr. Luis Miguel Bucio (pathologist in [place]). Code Status: Full Code Disposition: [facility] Discharge Condition: fair Follow-up Information Follow up with Trixie Rose PA-C In 1 week. Specialty: Internal Medicine Contact information: [id number] [address] Discharge Medications New Medications Details [...] by: Jose Carlos Albert MD, 09/10/2015 11:16 [facility] documented in this encounter Medications at [...] Albert MD - 09/09/2015 5:37 PM PDT formerly [facility]G Hospitalist Progress Note Shaila Son [...] Product Code RBC Leukocytes Reduced UNIT # [id number] UNIT ABO O UNIT RH POS CROSSMATCH [...] outlined above. Jose Carlos Albert 09/09/2015 17:37 [facility] Portions of this chart may have been created with [employer] voice recognition software. Occasi onal wrong-word or sound-alike substitutions may have occurred due to the inherent gallardo itations of voice recognition software. Please read the chart carefully and recognize, using context, where these substitutions have occurred itchell, Jose Carlos Chen MD - 09/08/2015 5:35 PM PDT formerly [facility] PMG Hospitalist Progress Note Shaila Son [...] outlined above. Jose Carlos Albert 09/08/2015 17:35 [facility] Portions of this chart may have been created with [employer] voice recognition software. Occasi onal wrong-word or sound-alike substitutions may have occurred due to the inherent gallardo itations of voice recognition software. Please read the chart carefully and recognize, using context, where these substitutions have occurred Jose Carlos Garcia MD - 09/07/2015 5:42 PM PDT formerly [facility] PMG Hospitalist Progress Note Shaila Son [...] Product Code RBC Leukocytes Reduced UNIT # [id number] UNIT ABO O UNIT RH POS CROSSMATCH [...] A p reliminary report was sent by [facility] on 09/06/2015 at 7:03 PM with no [...] outlined above. Jose Carlos Albert 09/07/2015 17:42 [facility] Portions of this chart may have been created with [employer] voice recognition software. Occasi onal wrong-word or sound-alike substitutions may have occurred due to the inherent gallardo itations of voice recognition software. Please read the chart carefully and recognize, using context, where these substitutions have occurred Grant Mace MD - 09/06/2015 2:33 PM PDT formerly [facility] PMG Hospitalist Progress Note Shaila Son [...] noting at the time of discharge from [facility] she was gi shawn 5 additional days [...] made tomorrow after review with the overr eading radiologist's here especially in comparison with a [...] output data in the 24 hours ending 09/06/15 1433 PHYSICAL EXAM: Cardiovascular: Regular rate and [...] as outlined above. Grant Lomas 09/06/2015 14:33 [facility] Portions of this chart may have been created with [employer] voice recognition software. Occasi onal wrong-word or sound-alike substitutions may have occurred due to the inherent gallardo itations of voice recognition software. Please read the chart carefully and recognize, using context, where these substitutions have occurred arker, Grant Pardo MD - 0 09/05/2015 2:46 PM PDT formerly [facility] PMG Hospitalist Progress Note Shaila Son [...] as such I do want to volume game moderator someone in with her crit of 22 without active bleeding I'm going to give a unit of blood ove rnight and potentially a second unit tomorrow a.m. ending on her response to transfusion. T his will volume game moderator and hopefully improve her functional status in [...] as outlined above. Grant Lomas 09/06/2015 14:46 [facility] Portions of this chart may have been created with [employer] voice recognition software. Occasi onal wrong-word or sound-alike substitutions may have occurred due to the inherent gallardo itations of voice recognition software. Please read the chart carefully and recognize, using context, where these substitutions have occurred arker, Grant Pardo MD - 0 09/04/2015 2:57 PM PDT formerly [facility] PMG Hospitalist Progress Note Shaila Son [...] in the Assessment and Plan. Results for SON SHAILA ALMEIDA ( ) as of 09/06/2015 14:34 Ref. [...] Range: 11-35 umol/L 58 (H) Results for HUY SHAILA ALMEIDA ( ) as of 09/06/2015 14:34 Ref. [...] as outlined above. Grant Lomas 09/06/2015 14:58 [facility] Portions of this chart may have been created with [employer] voice recognition software. Occasi onal wrong-word or [...] Mace MD - 09/03/2015 8:47 AM PDT formerly [facility] PMG Hospitalist Progress Note Shaila Son [...] and repeat a AFB stain and smear. Zacarias awaiting the records from [facility] to determine the type of treatment [...] sam was made to accommodate the 8 Cambodian paracentesis trocar catheter, which were advanced into [...] as outlined above. Grant Lomas 09/03/2015 8:48 [facility] Portions of this chart may have been created with [employer] voice recognition software. Occasi onal wrong-word or [...] Lomas MD at 0 09/02/2015 6:29 PM PDTParneel, Grant Pardo MD - 09/02/2015 9:34 AM PDTFormatting of this note mi ght be different from the original. formerly [facility] PMG Hospitalist Progress Note Shaila Son [...] 5 L relative kidney function and consider ta alla off more fluid tomorrow for comfort. Patient's [...] as outlined above. Grant Lomas 09/02/2015 9:45 [facility] Portions of this chart may have been created with [employer] voice recognition software. Occasi onal wrong-word or sound-alike substitutions may have occurred due to the inherent gallardo itations of voice recognition software. Please read the chart carefully and recognize, using context, where these substitutions have occurred documented in this enc ounter H&P Notes Holznagel, Robel E, MD - 09/08/2015 11:59 AM PDT INTERIM [...] by: Robel Taylor MD, 09/08/2015 11:[address] [facility] Robel Taylor MD at 0 09/08/2015 12:00 PM PDTParkerGrant MD - 09/01/2015 6:43 PM PDTFormatting of this note mi ght be different from the original. Patient: Shaila Son : 1970: Age: 45 y.o. MedRec: [id number] Admission date: 09/01/2015 Hospital day #: 0 Physician author: Grant Lomas MD HISTORY AND PHYSICAL CHIEF COMPLAINT: Patient transferred to this facility from [facility] without emergency room rec ords or [...] of 4 L paracentesis in 03/29/2015 at [facility] History of seizures at the patient's order from [facility] being divalproex DR 150 mg 3 times [...] at the time of discharge 04/01/2015 from [facility] was tete ing Cefpodoxime 200 mg daily [...] CKTOTAL No results for input(s): PHART, PO2ART, OVH7TWI, LJX6GRO, BEART, P8BQEXXF in the last 168 h ours. Xray [...] signed by: Grant Lomas MD 09/01/2015 18:43 formerly [facility] Portions of this chart may have been created with [employer] voice recognition software. Occasi onal wrong-word or sound-alike substitutions may have occurred due to the inherent gallardo itations of voice recognition software. Please read the chart carefully and recognize, using context, where these substitutions have occurred documented in this enc ounter Miscellaneous Notes Plan of Care - Janeen Srivastava MSW - 09/10/2015 11:49 AM PDTPatient to transfer to [facility]. This CM faxed over the SNF transfer orders, PASRR, and RXs. All other documentation is placed in manila folder and in ghost chart. This CM spoke with Irena who states that she will look over the orders and call this write r back with a spanish moss picker time. Electronically signed by: HANNAH Contreras 09/10/2015 11:52 Spoke with Josephine who reported a spanish moss picker time of 1300. This Cm let patient know and asked if she would like any family notified, she stated "they already know I'm going there". She did not have any further concerns noted. Electronically signed by: HANNAH Contreras 09/10/19 16 15:16 NF Lyndsay Albert, Jose Carlos Chen MD - 09/10/2015 11:13 AM PDTFormatting of this note might be differe nt from the original. [facility] TRANSFER ORDERS Patient Name: Shaila Son Patient : 1970 Gender: female Date of Admission: 09/01/2015 Date of Discharge: 09/10/2015 Admitting Provider: Marialuisa Roman MD Discharging Provider: Jose Carlos Albert MD Consultants: none PCP: Juan Holguin [facility] transferring to: [facility] Provider after transfer: Per SNF CODE STATUS: [x] Attempt CPR [] Do not resuscitate If patient is pulseless and not breathing, RN/TRANSPORTATION ASSOCIATE may pronounce . Advanced Directives included: [] [...] for this patient. Diet: [] As tolerated INFANT TEACHER may upgrade or downgrade diet as condition [...] Whole [] Thin Liquids [] Cut-up [] [place] Thick [] Advanced Chopped [] Honey Thickened [] Chopped [] Advanced Ground [] 1:1 feedings [] Ground/Pureed [] Other: Tube Feedings: [] PEG [] GT [] JT [] NGT [] Formula type: (Primer Supervisor may change/substitute if indicated). [] Continuous Rate: [...] [x] OT Evaluation & Management for: [] INFANT TEACHER Evaluation &Management for: [] Other: Wound/Skin Care: [...] Needed/Frequency Diagnosis/Indication Follow up appointments and consultations: Date/Time: Dr. Date/Time I have advised this [...] By: Jose Carlos Albert Quant: 30 tablet Jos eCarlos Hester MD, certify that post hospital group home care is medically nec essary on a continuing basis for any of the conditions for which he/she received care during this hospitalization. Check one: [x] Skilled [] Intermediate Additional Orders/Instructions: Physician's signature: 09/10/2015 11:13 [facility] USE ONLY: [] Admitting orders verbally reviewed with Admitting Physician, modified where appropriate, and approved. Verbal Order from Date: Time: _ RN name: RN signature: [] Admitting orders reviewed, modified where appropriate, and approved. Physician's signature:____Jose Carlos Albert Date: _Time: lan of Care - Steve Ritchie RN - 09/10/2015 8:06 AM PDTProblem: Patient [...] weight-bearing History of Presenting Problem: Transfer from [facility], no records or labs available. P t unable to provide history. Reportedly stopped medications x 1 month ago. Hx 4L paracente sis @ [facility] 03/23; hx seizures, chronic anemia. Now- acute [...] for technique w/ IV pole Level of [place] : contact guard assist, verbal cues required Assistive Device: (IV stand) Distance (feet): 300 Transfers Using IV stand for support Sit-Stand, Level of [place]: supervision required Stand-Sit, Level of [place]: supervision required [id number]-Fbo, Assistive Device: none Safety Issues: balance decreased during turns, step length decreased, loses balance backwar d Impairments: impaired balance, strength decreased, decreased flexibility, postural control impaired, muscle tone abnormal Bed Mobility Assistive Device: bed rails Supine to Sit, Level of [place]: minimum assist (75% patient effort) Sit to Supine, Level of [place]: modified independence Impairments: impaired balance, strength decreased [...] Activity Type: supine to sit/sit to supine [place] Level: independent Assistive Device: none Time to Achieve: 5 - 7 days Goal Status: progressing toward goal, revised Transfer Training Goal, Activity Type: sit to stand/stand to sit [place] Level: modified independence Assistive Device: 2 wheeled walker (FWW) Time to Achieve: 5 - 7 days Goal Status: progressing toward goal, revised Gait Training Goal, [place] Level: modified independence Assistive Device: 2 wheeled [...] Calls appropriately. Sleeping t/o the night in [facility]. Moderate amount of liquid stool this am. [...] to procedure. lan of Care - Co fftina, Lachelle Chen, PT - 09/08/2015 1:21 PM PDTProblem: Patient [...] 09/08/2015 11:53 AM PDTPlan of Care - Vanda Jackson COTA - 11:09 AM PDTProblem: Patient Care Overview [...] FWW with SBA Ambulated an est 250'. ANGLE SHEARER bro ught a different IV pole to provide safer ambulating with pole to/from bathroom. Pt report s and nursing confirms that pt is Independent in her room. Education: Safety with functional mobility Treatment Provided: ADL and functional mobility training. Patient Status/Goals Reflects last filed data of patient status; may be from multiple contributors. ADLs Grooming, Level of [place]: supervision required Assistive Device: none Grooming Assess/Train, [...] therapies. She stood at the sink to oracle software engineer her te eth with supervision, Pt fatigued [...] overall everything was oka y. Patient is Mormon and I wished her good health. Spiritual Intervention: Patient welcomed agency development manager visit and I wished her good health. Spiritual Outcomes: Patient thank me for the visit. Spiritual Goals/Follow up: Nurse Paralegal will continue to provide ongoing emotional/spirtiual support for patient as requested. lan of Juan Ramirez PTA - 09/07/2015 12:49 PM PDTProblem: Patient Care [...] weight-bearing History of Presenting Problem: Transfer from [facility], no records or labs available. P t unable to provide history. Reportedly stopped medications x 1 month ago. Hx 4L paracente sis @ [facility] 03/23; hx seizures, chronic anemia. Now- acute [...] on L during initial contact. Level of [place] : supervision required Assistive Device: 2 wheeled walker (FWW) Distance (feet): 120 Transfers Sit-Stand, Level of [place]: supervision required Stand-Sit, Level of [place]: supervision required [id number]-Gqm, Assistive Device: 2 wheeled walker (FWW) Toilet, Assistive Device: none (recommend FWW as pt is slightly unsteady on her feet) Safety Issues: balance decreased during turns, step length decreased, loses balance backwar d Impairments: muscle tone abnormal, strength decreased, impaired balance, coordination impai red Bed Mobility Assistive Device: bed rails Supine to Sit, Level of [place]: modified independence Sit to Supine, Level of [place]: independent Impairments: impaired balance, strength decreased Balance [...] in lower legs and ankles STG GOALS [place] Level: independent Assistive Device: none Time to Achieve: 2 days Goal Status: new [place] Level: modified independence Assistive Device: 2 wheeled walker (FWW) Time to Achieve: 2 days Goal Status: new Gait Training Goal, [place] Level: modified independence Assistive Device: 2 wheeled [...] PTA, 09/07/2015 12:45 lan of Care - [facility] er, Paulina Goddard OT - 09/07/2015 12:32 PM PDTProblem: Patient [...] from multiple contributors. ADLs LB, Level of [place]: supervision required, set up required LB Dressing [...] via lactulose with some incontinence. lan of Yumiko Macias RN - 09/06/2015 9:59 AM PDTDischarge planning: I received a phone call from [facility] katheryn [place] this morning. She states that they have a bed available and would be able to accept Ms Shaila Son when she is medially stable for discharge. [facility] katheryn [place] does request for the doctor to include an order for Ativan PO and IM o n her SNF discharge order for possible Seizure activity. Otherwise no concerns with taking h er. Dr Lomas notified of the above information. Electronically signed by: Yumiko Anderson RN 09/06/2015 10:01 [facility] [place] notified patient will be medially stable for discharge tomorrow, Sunday , 09/07/2015. Patient also notified of the above information. Electronically signed by: Yumiko Anderson RN 09/06/2015 11:40 Updated doctor progress notes faxed to [facility] per her request, fax # . Electronically signed by: Yumiko Anderson RN 09/06/2015 15:55 lan of Clare Gardner, PT - 09/06/2015 8:46 AM PDT Problem: [...] is a 45 y.o. who transferred from [facility], no records or labs available. Pt unable to provide history. Reportedl y stopped medications x 1 month ago. Hx 4L paracentesis @ [facility] 03/23; hx seizures, chronic anemia. Now- acute [...] stairs at home. Transfers Sit-Stand, Level of [place]: supervision required Toilet, Assistive Device: none (recommend FWW as pt is slightly unsteady on her feet) Safety Issues: balance decreased during turns, step length decreased, loses balance backwar d Impairments: muscle tone abnormal, strength decreased, impaired balance, coordination impai red Bed Mobility Assistive Device: bed rails Supine to Sit, Level of [place]: modified independence Sit to Supine, Level of [place]: independent Impairments: impaired balance, strength decreased Balance [...] in lower legs and ankles STG GOALS [place] Level: independent Assistive Device: none Time to Achieve: 2 days Goal Status: new [place] Level: modified independence Assistive Device: 2 wheeled walker (FWW) Time to Achieve: 2 days Goal Status: new Gait Training Goal, [place] Level: modified independence Assistive Device: 2 wheeled [...] plan for care. Today's Treatment Start Time: 0920 Stop time: 1000 Time Calculation: 40 minutes [...] education given, consent signed and placed in ghost chart. Patient alert and orientated this shift. [...] home or snf. lan of Care - Suzette Hayes, OT - 09/05/2015 3:21 PM PDTProblem: Patient [...] Suzette Arcos OT, 09/05/2015 15:20 lan of Care - Yumiko Quevedo RN - 09/05/2015 1:33 PM PDTDischarge planning: This CM discussed with patient the option of going to a SNF for physical therapy Rehab. She agrees and would like to go to [facility] as she is from [place] and family and friends could visit. If [facility] does not have any beds available, she is open to [place] [facility]. Referral has been faxed to [facility]. Yumiko Anderson RN 09/05/2015 12:23 lan of [facility] - Steve Salamanca RN - 09/05/2015 5:09 AM [...] Sleep most of the afternoon. lan of Paulina Santa, OT - 09/04/2015 12:27 PM PDTFormatting of [...] who presents to therapy for Transfer from [facility], no records or labs available. Pt unable to provid e history. Reportedly stopped medications x 1 month ago. Hx 4L paracentesis @ [facility] 03/23; hx seizures, chronic anemia. Now- acute [...] from multiple contributors. ADLs Toileting, Level of [place]: contact guard assist, verbal cues required, set up requir ed Assistive Device: grab bar Toileting Assess/Train, Position: sitting, supported standing Toileting Assess/Train, Impairments: impaired balance, strength decreased, coordination imp aired Cognitive Mood/Behavior: hypoactive (quiet, withdrawn), flat affect Orientation: oriented x 4 Speech: (very soft) Transfers Toilet, Level of [place]: contact guard assist, verbal cues required, set [...] alarm in place. lan of Care - Dod Kristen chow RN - 09/03/2015 6:36 PM [...] ctulose given. Multiple loose BM's today. lan [facility] Sabrina jimenes RN - 09/03/2015 5:25 AM PDTProblem: Patient [...] twice during shift. Hgb 7.1 this morning, MD aware. Ammonia 101. Anticipate possible paracentesis again today. lan of [facility] - Tresa Viera RN - 09/02/2015 6:23 [...] with ativan with good result. lan of Alicia - Tresa Up RN - 09/02/2015 6:22 PM PDTProblem: Liver Failure, Acute/Chronic (Adult) Prevent and manage potential problems includin. fluid/electrolyte imbalance2. gastrointe stinal complications3. impaired coagulation4. infection5. malnutrition6. neurologic deterior ation7. pain8. renal dysfunction9. respiratory [id number]. situational response Intervention: Promote Neurologic Homeostasis Patient [...] so I visited with her S.O. Edd guzman ( , Home (this is the land line at Aunt Angy's home as there is no Cell p radha front desk receptionist out there) #[phone]). He said that the living situation is as follows. She has a room in her Aunmauricio Travis's home located in [place], [place] that she doesn't use very o ften where four of her Cousins live as well. She normally lives with Edd in a mobile that is located below Aunt Angy's home. There are three steps leading to the entrance on [facility]. Trixie Rose PA-C at the [facility] is her PCP. I called [facility] and had them place her name on Shaila's chart. She uses the pharmacy located at [facility] first then uses the [place] [facility] second. She owns a cane, a four wheel walker, hand rails by the tub/shower and toilet, a hand held shower head and uses a metal fold up chair in the tub. She has used the [facility] for most of her DME and then would li ke to use [facility] located in [place], [place]. They said that [facility] would be fine if they would come out. They said that the four Cousins staying at Aunmauricio Travis 's home are all drinking all the time. Edd said that his home would be a safe place for H H to visit though. Edd said that she would go back to [facility] as her "Plan B" as she has stayed there before. Edd said that Shaila had been drinking prior to this hospitalizati on and that she had stopped taking her medications when she started to drink as she did not feel they would do her any good when she was drinking. Edd said that hSaila stayed in touch with her Drug and Alcohol Counselor, Andreia ([phone]), from [facility] and that she had helped arrange for her to come to [facility]. There was a questions as to whether [...] liquid diet w/ 1800 ml fluid restriction. Mor hang labs pending. Anticipate paracentesis today. documented in [...] | + +--------+ + + + | LICO RUTH | Routin | 09/03/2015 | | Results [...] | + + + | ORDERING PHYSICIAN: Andres Mancera MD PATIENT NAME: HUY, | [facility] | | SHAILA ALMEIDA GENDER: Romulo [...] | | | preparation was performed by [facility] [address] [place] [address] | | | [place] [address] and [email or web address] | | | [address] [place] [address]. Professional | | | interpretation was performed by [facility] | | | Center Branch - [address] [place] [address] (Medical | | | Director: Bebeto Ruiz M.D.; IA#:[id number]).8 Diagnostician: | | | Gladis Johnson M.S., KAVIN([facility]), [facility] Mechanical Applications Engineer | | | Diagnostician: Bebeto Ruiz MD [...] [address] | [place] | [phone] | | [facility] | | [address] | | | - LABORATORY | | [...] [address] | [place] | [phone] | | [facility] | | [address] | | | - LABORATORY | | [...] (L) | 7 - 18 mg/dL | [facility] | | | | | | ST. [...] mL/min/1.73m2 | [facility] | | | [place] | RATE,ESTIMATED | | MEDICAL | | | | mL/min/1.63u1Bhsx than | | CENTER - | | [...] | | ine Ratio | | | [facility] | | [...] [address] | [place] | [phone] | | [facility] | | [address] | | | - LABORATORY | | [...] + + + | UNIT # | [id number] | | [facility] | | | | [...] St | [place] | | | [facility] | | [address] | | | - BLOOD BANK | [...] + | [facility] | [address] | [place] | [phone] | | [facility] | | [address] | | | - LABORATORY | | [...] mL/min/1.73m2 | [facility] | | | [place] | RATE,ESTIMATED | | MEDICAL | | | | mL/min/1.77q2Lfkm than | | CENTER - | | [...] | | ine Ratio | | | [facility] | | | | | | [...] [address] | [place] | [phone] | | [facility] | | [address] | | | - LABORATORY | | [...] 0.20 (H) | 0.00 - 0.10 | [facility] | [...] [address] | [place] | [phone] | | [facility] | | [address] | | | - LABORATORY | | [...] + | Jermaine, Rad Results In - 09/08/2015 1:40 PM PDT [...] (H) | 22 - 36 seconds | [facility] [...] + | [facility] | [address] | [place] | [phone] | | [facility] | | [address] | | | - LABORATORY | | [...] [address] | [place] | [phone] | | [facility] | | [address] | | | - LABORATORY | | [...] 10 | 7 - 18 mg/dL | [facility] | | | | | | [facility] | | | | | | MEDICAL | | | | | | CENTER - | | | | | | LABORATORY | | + + + + + + | Creatinine | 0.65 | 0.60 - 1.30 | [place] | | | | | mg/dL | [facility] | | | | | | MEDICAL | | | | | | CENTER - | | | | | | LABORATORY | | + + + + + + | eGFR, | >60Comment: GLOMERULAR | >=60 | [place] | | | non- | FILTRATION | mL/min/1.73m2 | [facility] | | | [place] | RATE,ESTIMATED | | MEDICAL | | | | mL/min/1.62m2Mulh than | | CENTER - | | [...] + | [facility] | [address] | [place] | [phone] | | [facility] | | [address] | | | - LABORATORY | | [...] | | Cells | | | [facility] | | [...] ST. | [address] | [place] | [phone] | | [facility] | | [address] | | | - LABORATORY | | | | + + + + + Surgical Pathology Exam (09/08/2015 12:00 AM PDT) + + | Specimen | + + | Soft tissue sample | | (specimen) | + + + + + | Narrative | Performed At | + + + | SPECIMEN(S): A LIVER NEEDLE BIOPSY SPECIMEN SOURCE: A. LIVER | [facility] | | NEEDLE BIOPSY CLINICAL HISTORY: [...] may not be | | | fully territory sales representative should be considered. Noninvasive MRI studies | | | may help to further characterize the lesion if clinical concern | | | remains. Results discussed with Dr. Albert by Dr. More on | | | September 09 at 3:10 p.m. [facility]:C2NR GROSS DESCRIPTION: The specimen, | | | labeled and designated "Shaila Son, liver biopsy," is | | | received in formalin and consists of two cores of orange colored | | | tissue, 0.1 cm diameter and ranging from 2.6 to 2.7 cm in length. | | | All into (A1). yt:NAYA:glenis MICROSCOPIC EXAMINATION: The liver | | | [...] for | | | neoplastic hepatocellular nodules. [facility] PERFORMING LABORATORY: | | | Tissue processing and slide preparation were performed by [facility] | | | [employer], [place] [address] | | | (Cylinder Valve Repairer: Bebeto Ruiz M.D.; CLIA#: [id number]). | | | Professional interpretation was performed by [facility] | | | [facility], [address] [place] [address], [place], | | | [place] [address] (Cylinder Valve Repairer: Jonny Ernandez M.D.; CLIA#: | | | [id number]). Diagnostician: Ana M Holm MD Pathologist | [...] | | | | | | Performed: [facility] | | | | | | [facility] | | | | | | [place], [address], | | | | | | [place] [address] | | | | + + + + + + + + | Specimen | + + | Blood specimen | | (specimen) | + + + + + + + | Performing | Address | City/State/Zipcode | Phone Number | | Organization | | | | + + + + + | [facility] | [address] | [place] [address] | [phone] | + + + + + PTT (09/07/2015 5:41 AM PDT) + +--------+ + + + | Component | Value | Ref Range | Performed | Pathologist | | | | | At | Signature | + +--------+ + + + | aPTT | 37 (H) | 22 - 36 seconds | [facility] | | | | | [...] + | [facility] | [address] | [place] | [phone] | | [facility] | | [address] | | | - LABORATORY | | [...] [address] | [place] | [phone] | | [facility] | | [address] | | | - LABORATORY | | [...] | Basophils | | K/uL | [facility] | | | [...] [address] | [place] | [phone] | | [facility] | | [address] | | | - LABORATORY | | [...] 8 | 7 - 18 mg/dL | [place] | | | | | | [facility] | | | | | | MEDICAL | | | | | | CENTER - | | | | | | LABORATORY | | + + + + + + | Creatinine | 0.61 | 0.60 - 1.30 | [facility] | | | | | mg/dL | [facility] | | | | | | MEDICAL | | | | | | CENTER - | | | | | | LABORATORY | | + + + + + + | eGFR, | >60Comment: GLOMERULAR | >=60 | [facility] | | | non- | FILTRATION | mL/min/1.73m2 | [facility] | | | [place] | RATE,ESTIMATED | | MEDICAL | | | | mL/min/1.47w7Vewk than | | CENTER - | | [...] [address] | [place] | [phone] | | [facility] | | [address] | | | - LABORATORY | | [...] + + + | UNIT # | [id number] | | [facility] | | | | [...] | Unit Status | Transfused | | [facility] | | | | [...] ST. | [address] | [place], [place] | | | [facility] | | [address] | | | - BLOOD BANK | [...] | | | report was sent by [facility] on 09/06/2015 at 7:03 PM with no [...] | | preliminary report was sent by [facility] on 09/06/2015 at 7:03 PM with | [...] | |A preliminary report was sent by [facility] on 09/06/2015 at 7:03 PM with no [...] | | | Cells | | | . [facility] | | | | [...] + | [facility] | [address] | [place] | [phone] | | [facility] | | [address] | | | - LABORATORY | | [...] 7 | 7 - 18 mg/dL | [facility] | | | | | | [facility] | | | | | | MEDICAL | | | | | | CENTER - | | | | | | LABORATORY | | + + + + + + | Creatinine | 0.59 (L) | 0.60 - 1.30 | [facility] [...] mL/min/1.73m2 | [facility] | | | [place] | RATE,ESTIMATED | | MEDICAL | | | | mL/min/1.46j3Qcdy than | | CENTER - | | [...] 7.3 (L) | 8.3 - 10.5 | [facility] | | | | | mg/dL | [facility] | | | | | | MEDICAL | | | | | | CENTER - | | | | | | LABORATORY | | + + + + + + | Albumin | 1.6 (L) | 3.2 - 5.0 g/dL | [facility] | | | | | | ST. [...] [address] | [place] | [phone] | | [facility] | | [address] | | | - LABORATORY | | [...] St | [place] | | | [facility] | | [address] | | | - BLOOD BANK | [...] + + + | UNIT # | [id number] | | [facility] | | | | [...] + | [facility] | [address] | [place] | | | [facility] | | [address] | | | - BLOOD BANK | [...] | | Code | | | [facility] | | | | | | MEDICAL | | | | | | CENTER - | | | | | | BLOOD BANK | | + + + + + + | UNIT # | [id number] | | [facility] | | | | [...] | Unit Status | Returned | | [facility] | | | | | | ST. [...] St | [place] | | | [facility] | | [address] | | | - BLOOD BANK | | | | + + + + + Ammonia (09/05/2015 4:49 AM PDT) + +--------+ + + + | Component | Value | Ref Range | Performed | Pathologist | | | | | At | Signature | + +--------+ + + + | Ammonia | 38 (H) | 11 - 35 umol/L | [facility] | | | | | [...] + | [facility] | [address] | [place] | [phone] | | [facility] | | [address] | | | - LABORATORY | | [...] (L) | 7 - 18 mg/dL | [facility] | | | | | | [facility] | | | | | | MEDICAL | | | | | | CENTER - | | | | | | LABORATORY | | + + + + + + | Creatinine | 0.72 | 0.60 - 1.30 | [facility] | [...] mL/min/1.73m2 | [facility] | | | [place] | RATE,ESTIMATED | | MEDICAL | | | | mL/min/1.59h5Nbmo than | | CENTER - | | [...] ST. | [address] | [place] | [phone] | | [facility] | | [address] | | | - LABORATORY | | [...] | | | Cells | | | [facility] | | | | | | MEDICAL | | | | | | CENTER - | | | | | | LABORATORY | | + + + + + + | Red Blood | 2.44 (L) | 3.70 - 5.20 | [facility] | | | Cells | | M/uL | [facility] | | | | | | MEDICAL | | | | | | CENTER - | | | | | | LABORATORY | | + + + + + + | Hemoglobin | 7.4 (LL)Comment: | 11.5 - 16.0 | [facility] | | | | Consistent with previous | g/dL | [facility] | | | | results. | | [...] + | [facility] | [address] | [place] | [phone] | | [facility] | | [address] | | | - LABORATORY | | [...] [address] | [place] | [phone] | | [facility] | | [address] | | | - LABORATORY | | [...] + | [facility] | [address] | [place] | [phone] | | [facility] | | [address] | | | - LABORATORY | | [...] | | | | | mmol/L | [facility] | | | | | [...] 0.54 (L) | 0.60 - 1.30 | [facility] [...] mL/min/1.73m2 | [facility] | | | [place] | RATE,ESTIMATED | | MEDICAL | | | | mL/min/1.57k4Nbua than | | CENTER - | | [...] [address] | [place] | [phone] | | [facility] | | [address] | | | [...] [address] | [place] | [phone] | | [facility] | | [address] | | | - LABORATORY | | [...] Gonzalez | | MD Royce Electronically signed: 09/03/2015 5:04 PM | | + + + + + | Procedure Note | + + | Jermaine, Edgardo Results In - 09/03/2015 5:07 PM PDT [...] | | | + +---------+ + + LICO Ruth (09/03/2015 4:36 PM PDT) + + + [...] | | | | | | | [id number] | | | | | | Source [...] Performed: | | | | | | [facility] | | | | | | [facility], [address] | | | | | | [place] [address] | | | | + + + [...] [facility] | [address] | [place] [address] | [phone] | + + + + + Ammonia [...] [address] | [place] | [phone] | | [facility] | | [address] | | | - LABORATORY | | [...] | 0.61 | 0.60 - 1.30 | [place] | | | | | mg/dL | [facility] | | | | | | MEDICAL | | | | | | CENTER - | | | | | | LABORATORY | | + + + + + + | eGFR, | >60Comment: GLOMERULAR | >=60 | [place] | | | non- | FILTRATION | mL/min/1.73m2 | [facility] | | | [place] | RATE,ESTIMATED | | MEDICAL | | | | mL/min/1.94c1Nkgu than | | CENTER - | | [...] [address] | [place] | [phone] | | [facility] | | [address] | | | - LABORATORY | | [...] [address] | [place] | [phone] | | [facility] | | [address] | | | - LABORATORY | | | | + + + + + Medical Cytology (09/03/2015 12:00 AM PDT) + + | Specimen | + + | | + + + + + | Narrative | Performed At | + + + | ORDERING PHYSICIAN: Grant Lomas MD PATIENT NAME: [facility] | | SHAILA ALMEIDA GENDER: [...] | | | interpretation was performed by [facility] | | | [place] - [address] [place] [address] (Medical | | | Director: Bebeto Ruiz M.D.; [facility]#:[id number]).8 Technical | | | preparation was performed by [facility] [address] [facility] | | | [address] [place] [address] and [facility] | | | [address] [place] [address]. Diagnostician: | | | Gladis Johnson M.S., CT(ASCP), [facility] Mechanical Applications Engineer | | | Diagnostician: Ana M Holm [...] sam was made to accommodate the 8 Cambodian paracentesis trocar | | | catheter, which [...] made to accommodate the 8 | | Camb[place]ian paracentesistrocar catheter, which were advanced into the [...] | | | | | | | [id number] | | | | | | Source [...] | | | | | | [facility]ossy Blanchard | | | | | | [facility], [address] | | | | | | [place] [address] | | | | + + + [...] [address] | [place] [address] | [phone] | + + + + + Culture, [...] ST. | [address] | [place], [place] | [phone] | | [facility] | | [address] | | | - LABORATORY | | [...] + | [facility] | [address] | [place], [place] | [phone] | | [facility] | | [address] | | | - LABORATORY | | [...] | | | Dehydrogena | | | [facility] | | | se, Body | | [...] [address] | [place] | [phone] | | [facility] | | [address] | | | - LABORATORY | | [...] [address] | [place] | [phone] | | [facility] | | [address] | | | - LABORATORY | | [...] [address] | [place] | [phone] | | [facility] | | [address] | | | - LABORATORY | | [...] | | Source | | | [facility] | | | | | | MEDICAL | | | | | | CENTER - | | | | | | LABORATORY | | + + + + + + | Color, Body | [place] | | [facility] | | | Fluid [...] ST. | [address] | [place] | [phone] | | [facility] | | [address] | | | - LABORATORY | | [...] [place] | | | | | | [address] | | | | + + + + + + + + | Specimen | + + | Blood specimen | | (specimen) | + + + + + + + | Performing | Address | City/State/Zipcode | Phone Number | | Organization | | | | + + + + + | [facility] | [address] | [place] [address] | [phone] | + + + + + Ferritin (09/02/2015 5:35 AM PDT) + +-------+ + + + | Component | Value | Ref Range | Performed | Pathologist | | | | | At | Signature | + +-------+ + + + | FERRITIN | 61 | 11-<307 ng/mL | [facility] | | | | [...] [address] | [place] | [phone] | | [facility] | | [address] | | | - LABORATORY | | [...] | | Reticulocyt | | | [facility] | | | e Count | | | MEDICAL | | | | | | CENTER - | | | | | | LABORATORY | | + +---------+ + + + | Absolute | 0.0858 | M/uL | [facility] | | | Reticulocyt | | | [facility] | | | e Count | [...] + | [facility] | [address] | [place] | [phone] | | [facility] | | [address] | | | - LABORATORY | | | | + + + + + Folate (09/02/2015 5:35 AM PDT) + +-------+ + + + | Component | Value | Ref Range | Performed | Pathologist | | | | | At | Signature | + +-------+ + + + | FOLATE | 9.6 | >5.8 ng/mL | [facility] | | | | | [...] ST. | [address] | [place], [place] | [phone] | | [facility] | | [address] | | | - LABORATORY | | | | + + + + + Vitamin B-12 (09/02/2015 5:35 AM PDT) + + + + + + | Component | Value | Ref Range | Performed | Pathologist | | | | | At | Signature | + + + + + + | VITAMIN | 812Comment: DEFICIENT: | 180 - 914 pg/mL | [facility] | | | B-12 | <145 | | [facility] | | | | pg/mLINDETERMINATE: | | [...] [address] | [place] | [phone] | | [facility] | | [address] | | | - LABORATORY | | [...] 21.6 | 20.0 - 55.0 % | [facility] | | | SATURATION | | | [facility] | | [...] [address] | [place] | [phone] | | [facility] | | [address] | | | - LABORATORY | | | | + + + + + Hepatitis A, B, C Tasha Rudd (09/02/2015 5:35 AM PDT) + + + [...] [place] | | | | | | [address] | | | | + + + [...] [address] | [place] [address] | [phone] | + + + + + Protime INR (09/02/2015 5:35 AM PDT) + + [...] [address] | [place] | [phone] | | [facility] | | [address] | | | - LABORATORY | | [...] [address] | [place] | [phone] | | [facility] | | [address] | | | - LABORATORY | | [...] + | [facility] | [address] | [place] | [phone] | | [facility] | | [address] | | | - LABORATORY | | [...] 0.54 (L) | 0.60 - 1.30 | [facility] [...] | non- | FILTRATION | mL/min/1.73m2 | [facility] | | | [place] | RATE,ESTIMATED | | MEDICAL | | | | mL/min/1.83o0Qsvw than | | CENTER - | | [...] | | | | | mg/dL | [facility] | | | | | | MEDICAL | | | | | | CENTER - | | | | | | LABORATORY | | + + + + + + | Albumin | 1.3 (L) | 3.2 - 5.0 g/dL | [facility] | | | | | | [facility] | | | | | | [...] [address] | [place] | [phone] | | [facility] | | [address] | | | - LABORATORY | | [...] [address] | [place] | [phone] | | [facility] | | [address] | | | - LABORATORY | | [...] [address] | [place] | [phone] | | [facility] | | [address] | | | - LABORATORY | | [...] - 1.030 | [facility] | | | [place], | | | [facility] | | [...] | Urine Culture Set Up | | [facility] | | | Comment | | | [facility] | | [...] [address] | [place] | [phone] | | [facility] | | [address] | | | - LABORATORY | | | | + + + + + Medical Cytology (09/02/2015 12:00 AM PDT) + + | Specimen | + + | | + + + + + | Narrative | Performed At | + + + | ORDERING PHYSICIAN: Grant Lomas MD PATIENT NAME: [facility] [place] [facility] | | SHAILA ALMEIDA GENDER: Romulo [...] | | | interpretation was performed by [facility] | | | [place] - [address] [place] [address] (Medical | | | Director: Bebeto Ruiz M.D.; [facility]#:[id number]).8 Technical | | | preparation was performed by [facility] [address] [place] | | | [address], [place] [address] and [employer], [place] | | | [address] [place] [address]. Diagnostician: | | | Gladis Johnson M.S., CT([facility]), [facility] Mechanical Applications Engineer | | | Diagnostician: Ana M Holm [...] | | Blood in | | | [facility] | | | 3rd | | | [...] ST. | [address] | [place], [place] | [phone] | | [facility] | | [address] | | | - LABORATORY | | [...] [address] | [place] | [phone] | | [facility] | | [address] | | | - LABORATORY | | | | + + + + + Ammonia (09/01/2015 7:08 PM PDT) + +--------+ + + + | Component | Value | Ref Range | Performed | Pathologist | | | | | At | Signature | + +--------+ + + + | Ammonia | 62 (H) | 11 - 35 umol/L | [facility] | | | | | [...] + | [facility] | [address] | [place] | [phone] | | [facility] | | [address] | | | - LABORATORY | | [...] mL/min/1.73m2 | [facility] | | | [place] | RATE,ESTIMATED | | MEDICAL | | | | mL/min/1.04z7Vfmr than | | CENTER - | | [...] (L) | 3.2 - 5.0 g/dL | [facility] | | | | | | ST. [...] [address] | [place] | [phone] | | [facility] | | [address] | | | - LABORATORY | | [...] | | Cells | | M/uL | [facility] | | | | | | MEDICAL | | | | | | CENTER - | | | | | | LABORATORY | | + + + + + + | Hemoglobin | 7.5 (LL)Comment: | 11.5 - 16.0 | [facility] | | | | Critical Result called | g/dL | [facility] | | | | to and read [...] [address] | [place] | [phone] | | [facility] | | [address] | | | - LABORATORY | | [...] | | | Screen | | | [facility] | | [...] ST. | [address] | [place], [place] | | | [facility] | | [address] | | | - BLOOD BANK | [...] | | chromogenic agar method | | [facility] | | | [...] [address] | [place] | [phone] | | [facility] | | [address] | | | - LABORATORY | | [...] | Diagnosis | + + | Alcohol dependence with intoxication with complication (HCC) - Primary | + + | Anemia, unspecified type | + + | Ascites due to alcoholic cirrhosis (HCC) | + + | Hyponatremia Hyposmolality and/or hyponatremia | + + | Hepatic encephalopathy (HCC) Hepatic encephalopathy | + + documented in this encounter Administered Medications + +---------+ +------+-------+------+ | Medication Order | MAR | Action | Dose | Rate | Site | | | Action | Date | | | | + +---------+ +------+-------+------+ | albumin 25% IVPB 50 g 50 g, | New Bag | 09/03/19 | 50 g | 100 | | | Intravenous, Administer over 120 | | 16 4:49 | | mL/hr | | | Minutes, ONCE, 09/03/15 at | | PM PDT | | | | | 1700, For 1 dose | | | | | | + +---------+ +------+-------+------+ +---+---+ | | | +---+---+ + +-------+ +---------+---+---+ | carvedilol (COREG) tablet 12.5 | Given | 09/03/19 | 12.5 mg | | | | mg 12.5 mg, Oral, 2 TIMES DAILY | | 16 5:00 | | | | | WITH BREAKFAST & DINNER, First | | PM PDT | | | | | dose (after last modification) on | | | | | | | [facility] 09/02/15 at 0845, Give 1 dose | | | | | | | now with repeat dose in 2 hours | | | | | | | if HR>70 and SBP>120, | | | | | | + +-------+ +---------+---+---+ +-------+ +---------+---+---+ | Given | 09/03/19 | 12.5 mg | | | | | 16 8:32 | | | | | | AM PDT | | | | +-------+ +---------+---+---+ | Given | 09/02/19 | 12.5 mg | | | | | 16 6:00 | | | | | | PM PDT | | | | +-------+ +---------+---+---+ +---+---+ | | | +---+---+ + +-------+ +---------+---+---+ | carvedilol (COREG) tablet 12.5 | Given | 09/10/19 | 12.5 mg | | | | mg 12.5 mg, Oral, 2 TIMES DAILY | | 16 8:37 | | | | | WITH BREAKFAST & DINNER, First | | AM PDT | | | | | dose (after last modification) on | | | | | | | 09/07/15 at 0800, Give 1 dose | | | | | | | now with repeat dose in 2 hours | | | | | | | if HR>70 and SBP>120, | | | | | | + +-------+ +---------+---+---+ +-------+ +---------+---+---+ | Given | 09/09/19 | 12.5 mg | | | | | 16 5:08 | | | | | | PM PDT | | | | +-------+ +---------+---+---+ | Given | 09/09/19 | 12.5 mg | | | | | 16 8:00 | | | | | | AM PDT | | | | +-------+ +---------+---+---+ +---+---+ | | | +---+---+ + +-------+ + +---+---+ | carvedilol (COREG) tablet 18.75 | Given | 09/06/19 | 18.75 mg | | | | mg 18.75 mg, Oral, 2 TIMES | | 16 4:50 | | | | | DAILY WITH BREAKFAST & DINNER, | | PM PDT | | | | | First dose (after last | | | | | | | modification) on 09/04/15 at | | | | | | | 0815, Give 1 dose now with repeat | | | | | | | dose in 2 hours if HR>70 and | | | | | | | SBP>120, | | | | | | + +-------+ + +---+---+ +-------+ + +---+---+ | Given | 09/05/19 | 18.75 mg | | | | | 16 4:52 | | | | | | PM PDT | | | | +-------+ + +---+---+ | Given | 09/05/19 | 18.75 mg | | | | | 16 9:25 | | | | | | AM PDT | | | | +-------+ + +---+---+ +---+---+ | | | +---+---+ + +-------+ +---------+---+---+ | carvedilol (COREG) tablet 6.25 | Given | 09/02/19 | 6.25 mg | | | | mg 6.25 mg, Oral, 2 TIMES DAILY | | 16 7:21 | | | | | WITH BREAKFAST & DINNER, First | | AM PDT | | | | | dose on Sun09/01/15 at 2115, Give | | | | | | | 1 dose now with repeat dose in 2 | | | | | | | hours if HR>70 and SBP>120, | | | | | | + +-------+ +---------+---+---+ +-------+ +---------+---+---+ | Given | 09/01/19 | 6.25 mg | | | | | 16 9:43 | | | | | | PM PDT | | | | +-------+ +---------+---+---+ +---+---+ | | | +---+---+ + +-------+ +---------+---+---+ | carvedilol (COREG) tablet 6.25 | Given | 09/02/19 | 6.25 mg | | | | mg 6.25 mg, Oral, ONCE PRN, if | | 16 12:04 | | | | | HR>70 and SBP>120, Starting Wed | | AM PDT | | | | | 09/01/15 at 2300, For 1 dose, Give | | | | | | | 2 hours after 9 pm tonight ONLY | | | | | | | IF HR>70 and SBP>120, | | | | | | + +-------+ +---------+---+---+ +---+---+ | | | +---+---+ + +---------+ +-----+-------+---+ | cefTRIAXone (ROCEPHIN) 1 g in | New Bag | 09/01/19 | 1 g | 100 | | | sodium chloride 0.9% 50 mL IVPB | | 16 10:09 | | mL/hr | | | 1 g, Intravenous, Administer over | | PM PDT | | | | | 30 Minutes, EVERY 24 HOURS | | | | | | | (Daily), First dose on Wed | | | | | | | 09/01/15 at 1915, Activate system | | | | | | | and mix before use., Indications: | | | | | | | Prevention of Peritonitis | | | | | | + +---------+ +-----+-------+---+ +---+---+ | | | +---+---+ + +---------+ +-----+-------+---+ | cefTRIAXone (ROCEPHIN) 1 g in | New Bag | 09/02/19 | 1 g | 100 | | | sodium chloride 0.9% 50 mL IVPB | | 16 12:00 | | mL/hr | | | 1 g, Intravenous, Administer over | | PM PDT | | | | | 30 Minutes, ONCE, [facility] 09/02/15 at | | | | | | | 1245, For 1 dose, Activate | | | | | | | system and mix before use., | | | | | | | Indications: Prevention of | | | | | | | Peritonitis | | | | | | + +---------+ +-----+-------+---+ +---+---+ | | | +---+---+ + +---------+ +-----+-------+---+ | cefTRIAXone (ROCEPHIN) 1 g in | New Bag | 09/02/19 | 1 g | 100 | | | sodium chloride 0.9% 50 mL IVPB | | 16 2:05 | | mL/hr | | | 1 g, Intravenous, Administer over | | PM PDT | | | | | 30 Minutes, ONCE, [facility] 09/02/15 at | | | | | | | 1300, For 1 dose, To make total | | | | | | | of 2gm dose Activate system and | | | | | | | mix before use., Indications: | | | | | | | peritonitis | | | | | | + +---------+ +-----+-------+---+ +---+---+ | | | +---+---+ + +---------+ +-----+-------+---+ | cefTRIAXone (ROCEPHIN) 2 g in | New Bag | 09/10/19 | 2 g | 100 | | | sodium chloride 0.9% 50 mL IVPB | | 16 8:41 | | mL/hr | | | 2 g, Intravenous, Administer over | | AM PDT | | | | | 30 Minutes, EVERY 24 HOURS | | | | | | | (Daily), First dose (after last | | | | | | | modification) on Sun09/03/15 at | | | | | | | 0900, Activate system and mix | | | | | | | before use., Indications: | | | | | | | Prevention of Peritonitis | | | | | | + +---------+ +-----+-------+---+ +---------+ +-----+-------+---+ | New Bag | 09/09/19 | 2 g | 100 | | | | 16 10:19 | | mL/hr | | | | AM PDT | | | | +---------+ +-----+-------+---+ | New Bag | 09/08/19 | 2 g | 100 | | | | 16 9:08 | | mL/hr | | | | AM PDT | | | | +---------+ +-----+-------+---+ +---+---+ | | | +---+---+ + +-------+ +--------+---+---+ | fentaNYL (PF) injection PRN, | Given | 09/08/19 | 50 mcg | | | | Starting 09/08/15 at 1219 | | 16 12:53 | | | | | | | PM PDT | | | | + +-------+ +--------+---+---+ +-------+ +--------+---+---+ | Given | 09/08/19 | 25 mcg | | | | | 16 12:51 | | | | | | PM PDT | | | | +-------+ +--------+---+---+ | Given | 09/08/19 | 25 mcg | | | | | 16 12:24 | | | | | | PM PDT | | | | +-------+ +--------+---+---+ +---+---+ | | | +---+---+ + +---------+ +---+--------+---+ | folic acid 1 mg, thiamine | New Bag | 09/04/19 | | 102.2 | | | (VITAMIN B-1) 100 mg, pyridOXINE | | 16 9:05 | | mL/hr | | | (VITAMIN B-6) 100 mg in sodium | | AM PDT | | | | | chloride 0.9% 100 mL IVPB | | | | | | | Intravenous, Administer over 60 | | | | | | | Minutes, DAILY, First dose on Sun | | | | | | | 09/01/15 at 2100, For 3 doses, | | | | | | | give 1st dose prior to any food | | | | | | | or dextrose containing IV., | | | | | | + +---------+ +---+--------+---+ +---------+ +---+--------+---+ | New Bag | 09/03/19 | | 102.2 | | | | 16 8:23 | | mL/hr | | | | AM PDT | | | | +---------+ +---+--------+---+ | New Bag | 09/01/19 | | 102.2 | | | | 16 10:49 | | mL/hr | | | | PM PDT | | | | +---------+ +---+--------+---+ +---+---+ | | | +---+---+ + +-------+ +-------+---+---+ | furosemide (LASIX) tablet 40 mg | Given | 09/10/19 | 40 mg | | | | 40 mg, Oral, DAILY, First dose | | 16 8:37 | | | | | on [facility] 09/02/15 at 0945 | | AM PDT | | | | + +-------+ +-------+---+---+ +-------+ +-------+---+---+ | Given | 09/09/19 | 40 mg | | | | | 16 8:01 | | | | | | AM PDT | | | | +-------+ +-------+---+---+ | Given | 09/08/19 | 40 mg | | | | | 16 9:09 | | | | | | AM PDT | | | | +-------+ +-------+---+---+ +---+---+ | | | +---+---+ + +-------+ +--------+---+---+ | iohexol (OMNIPAQUE 350) 350 | Given | 09/08/19 | 50 mLs | | | | mg/mL injection 50 mL 50 mL, | | 16 12:38 | | | | | Intravenous, ONCE PRN, Other, for | | PM PDT | | | | | CT contrast study, Starting Wed | | | | | | | 09/08/15 at 1247, For 1 dose, | | | | | | | Radiology | | | | | | + +-------+ +--------+---+---+ +---+---+ | | | +---+---+ + +-------+ +--------+---+ + | iohexol (OMNIPAQUE 350) 350 | Given | 05/30/20 | 90 mLs | | Left Arm | | mg/mL injection 90 mL 90 mL, | | 16 4:20 | | | | | Intravenous, ONCE PRN, Other, | | PM PDT | | | | | Starting 09/06/15 at 1619, For | | | | | | | 1 dose, Cat Scanner | | | | | | + +-------+ +--------+---+ + +---+---+ | | | +---+---+ + +-------+ +--------+---+---+ | lactulose liquid 30 mL 30 mL, | Given | 09/03/19 | 30 mLs | | | | Oral, 3 TIMES DAILY, First dose | | 16 8:28 | | | | | on Sun09/01/15 at 1915, Give 3 | | PM PDT | | | | | doses today,1 hour apart, | | | | | | + +-------+ +--------+---+---+ +-------+ +--------+---+---+ | Given | 09/03/19 | 30 mLs | | | | | 16 2:42 | | | | | | PM PDT | | | | +-------+ +--------+---+---+ | Given | 09/03/19 | 30 mLs | | | | | 16 8:17 | | | | | | AM PDT | | | | +-------+ +--------+---+---+ +---+---+ | | | +---+---+ + +-------+ +--------+---+---+ | lactulose liquid 30 mL 30 mL, | Given | 09/10/19 | 30 mLs | | | | Oral, 2 TIMES DAILY, First dose | | 16 8:37 | | | | | (after last modification) on Sat | | AM PDT | | | | | 09/04/15 at 0900, Give 3 doses | | | | | | | today,1 hour apart, | | | | | | + +-------+ +--------+---+---+ +-------+ +--------+---+---+ | Given | 09/09/19 | 30 mLs | | | | | 16 8:43 | | | | | | PM PDT | | | | +-------+ +--------+---+---+ | Given | 09/09/19 | 30 mLs | | | | | 16 8:00 | | | | | | AM PDT | | | | +-------+ +--------+---+---+ +---+---+ | | | +---+---+ + +-------+ +--------+---+---+ | levETIRAcetam (KEPPRA) tablet | Given | 09/10/19 | 500 mg | | | | 500 mg 500 mg, Oral, 2 TIMES | | 16 8:37 | | | | | DAILY, First dose on Sun09/01/15 | | AM PDT | | | | | at 2115 | | | | | | + +-------+ +--------+---+---+ +-------+ +--------+---+---+ | Given | 09/09/19 | 500 mg | | | | | 16 8:44 | | | | | | PM PDT | | | | +-------+ +--------+---+---+ | Given | 09/09/19 | 500 mg | | | | | 16 8:00 | | | | | | AM PDT | | | | +-------+ +--------+---+---+ +---+---+ | | | +---+---+ + +-------+ +--------+---+---+ | lidocaine 1% injection 10 mL | Given | 09/02/19 | 10 mLs | | | | 10 mL, Infiltration, ONCE, [facility] | | 16 12:12 | | | | | 09/02/15 at 1200, For 1 dose | | PM PDT | | | | + +-------+ +--------+---+---+ +---+---+ | | | +---+---+ + +-------+ +------+---+---+ | LORazepam (ATIVAN) injection | Given | 09/04/19 | 2 mg | | | | 1-4 mg 1-4 mg, Intravenous, | | 16 12:50 | | | | | EVERY 15 MIN PRN, See Admin | | AM PDT | | | | | Instruction, Starting 09/01/15 | | | | | | | at 1854, FOR ICU USE ONLY | | | [...] | | | | | | | min, | | | | | | + +-------+ +------+---+---+ +-------+ +------+---+---+ | Given | 09/02/19 | 1 mg | | | | | 16 2:04 | | | | | | PM PDT | | | | +-------+ +------+---+---+ | Given | 09/01/19 | 2 mg | | | | | 16 9:26 | | | | | | PM PDT | | | | +-------+ +------+---+---+ +---+---+ | | | +---+---+ + +---------+ +-----+ +---+ | magnesium sulfate 2 g/50 mL | New Bag | 09/02/19 | 2 g | 25 mL/hr | | | IVPB 2 g 2 g, Intravenous, | | 16 7:41 | | | | | Administer over 120 Minutes, | | PM PDT | | | | | ONCE, [facility] 09/02/15 at 1900, For 1 | | | | | | | dose, Infuse over 2 hours., | | | | | | + +---------+ +-----+ +---+ +---+---+ | | | +---+---+ + +---------+ +-----+ +---+ | magnesium sulfate 4 g/100 mL | New Bag | 09/01/19 | 4 g | 25 mL/hr | | | IVPB 4 g 4 g, Intravenous, | | 16 10:30 | | | | | Administer over 240 Minutes, | | PM PDT | | | | | ONCE, [facility] 09/01/15 at 2115, For 1 | | | | | | | dose, Maximum recommended | | | | | | | infusion rate = 1 gram/hour., | | | | | | + +---------+ +-----+ +---+ +---+---+ | | | +---+---+ + +---------+ +-----+ +---+ | magnesium sulfate 4 g/100 mL | New Bag | 09/09/19 | 4 g | 25 mL/hr | | | IVPB 4 g 4 g, Intravenous, | | 16 11:02 | | | | | Administer over 240 Minutes, | | AM PDT | | | | | ONCE, [facility] 09/09/15 at 1045, For 1 | | | | | | | dose, Maximum recommended | | | | | | | infusion rate = 1 gram/hour., | | | | | | + +---------+ +-----+ +---+ +---+---+ | | | +---+---+ + +-------+ +--------+---+---+ | midazolam (VERSED) 1 mg/mL | Given | 09/08/19 | 0.5 mg | | | | injection PRN, Starting Wed | | 16 12:53 | | | | | 09/08/15 at 1219 | | PM PDT | | | | + +-------+ +--------+---+---+ +-------+ +--------+---+---+ | Given | 09/08/19 | 0.5 mg | | | | | 16 12:51 | | | | | | PM PDT | | | | +-------+ +--------+---+---+ | Given | 09/08/19 | 0.5 mg | | | | | 16 12:24 | | | | | | PM PDT | | | | +-------+ +--------+---+---+ +---+---+ | | | +---+---+ + +-------+ +------+---+---+ | morphine injection 2-4 mg 2-4 | Given | 09/09/19 | 2 mg | | | | mg, Intravenous, EVERY 2 HOURS | | 16 5:59 | | | | | PRN, Pain, Starting 09/07/15 | | PM PDT | | | | | at 1757 | | | | | | + +-------+ +------+---+---+ +-------+ +------+---+---+ | Given | 09/08/19 | 2 mg | | | | | 16 9:08 | | | | | | AM PDT | | | | +-------+ +------+---+---+ | Given | 09/07/19 | 2 mg | | | | | 16 8:46 | | | | | | PM PDT | | | | +-------+ +------+---+---+ +---+---+ | | | +---+---+ + +-------+ +------+---+---+ | ondansetron (ZOFRAN) injection | Given | 09/06/19 | 4 mg | | | | 4 mg 4 mg, Intravenous, EVERY 8 | | 16 6:53 | | | | | HOURS PRN, Nausea, Starting Wed | | AM PDT | | | | | 09/01/15 at 1854, First line | | | | | | | agent, | | | | | | + +-------+ +------+---+---+ +-------+ +------+---+---+ | Given | 09/05/19 | 4 mg | | | | | 16 10:03 | | | | | | PM PDT | | | | +-------+ +------+---+---+ | Given | 09/02/19 | 4 mg | | | | | 16 4:10 | | | | | | AM PDT | | | | +-------+ +------+---+---+ +---+---+ | | | +---+---+ + +-------+ +------+---+---+ | oxyCODONE (ROXICODONE) tablet 5 | Given | 09/02/19 | 5 mg | | | | mg 5 mg, Oral, EVERY 4 HOURS | | 16 4:10 | | | | | PRN, Pain, Starting [facility] 09/02/15 | | AM PDT | | | | | at 0353 | | | | | | + +-------+ +------+---+---+ +---+---+ | | | +---+---+ + +-------+ +------+---+---+ | oxyCODONE (ROXICODONE) tablet 5 | Given | 09/04/19 | 5 mg | | | | mg 5 mg, Oral, EVERY 6 HOURS | | 16 12:50 | | | | | PRN, Pain, Starting [facility] 09/02/15 | | AM PDT | | | | | at 1845 | | | | | | + +-------+ +------+---+---+ +---+---+ | | | +---+---+ + +-------+ +-------+---+---+ | pantoprazole (PROTONIX) DR | Given | 09/06/19 | 40 mg | | | | tablet 40 mg 40 mg, Oral, 2 | | 16 4:50 | | | | | TIMES DAILY BEFORE MEALS, First | | PM PDT | | | | | dose on Sun09/01/15 at 1915, Do | | | | | | | not cut or crush., | | | | | | + +-------+ +-------+---+---+ +-------+ +-------+---+---+ | Given | 09/06/19 | 40 mg | | | | | 16 6:49 | | | | | | AM PDT | | | | +-------+ +-------+---+---+ | Given | 09/05/19 | 40 mg | | | | | 16 4:52 | | | | | | PM PDT | | | | +-------+ +-------+---+---+ +---+---+ | | | +---+---+ + +-------+ +-------+---+---+ | pantoprazole (PROTONIX) DR | Given | 09/10/19 | 40 mg | | | | tablet 40 mg 40 mg, Oral, 2 | | 16 6:38 | | | | | TIMES DAILY BEFORE MEALS, First | | AM PDT | | | | | dose (after last modification) on | | | | | | | 09/07/15 at 1630, Do not cut | | | | | | | or crush., | | | | | | + +-------+ +-------+---+---+ +-------+ +-------+---+---+ | Given | 09/09/19 | 40 mg | | | | | 16 5:08 | | | | | | PM PDT | | | | +-------+ +-------+---+---+ | Given | 09/09/19 | 40 mg | | | | | 16 6:45 | | | | | | AM PDT | | | | +-------+ +-------+---+---+ +---+---+ | | | +---+---+ + +-------+ +-------+---+---+ | pantoprazole (PROTONIX) | Given | 09/07/19 | 40 mg | | | | injection 40 mg 40 mg, | | 16 6:19 | | | | | Intravenous, ONCE, Sun09/07/15 at | | AM PDT | | | | | 0730, For 1 dose, Mix each 40mg | | | | | | | vial with 10 mL NS to make 4 | | | | | | | mg/mL., | | | | | | + +-------+ +-------+---+---+ +---+---+ | | | +---+---+ + +-------+ +--------+---+---+ | potassium chloride (K-DUR) ER | Given | 09/02/19 | 20 mEq | | | | tablet 20 mEq 20 mEq, Oral, | | 16 12:04 | | | | | EVERY 2 HOURS, First dose on Wed | | AM PDT | | | | | 09/01/15 at 2200, For 2 doses, | | | | | | | Dose is every 2 hours for 2 | | | | | | | doses, OK to substitute liquid | | | | | | | formulation if better tolerated., | | | | | | | | | | | | | + +-------+ +--------+---+---+ +-------+ +--------+---+---+ | Given | 09/01/19 | 20 mEq | | | | | 16 9:42 | | | | | | PM PDT | | | | +-------+ +--------+---+---+ +---+---+ | | | +---+---+ + +-------+ +--------+---+---+ | potassium chloride (K-DUR) ER | Given | 09/02/19 | 20 mEq | | | | tablet 20 mEq 20 mEq, Oral, | | 16 10:06 | | | | | EVERY 2 HOURS, First dose on Sun | | PM PDT | | | | | 09/02/15 at 2000, For 2 doses, | | | | | | | Dose is every 2 hours for 2 | | | | | | | doses, OK to substitute liquid | | | | | | | formulation if better tolerated., | | | | | | | | | | | | | + +-------+ +--------+---+---+ +-------+ +--------+---+---+ | Given | 09/02/19 | 20 mEq | | | | | 16 8:54 | | | | | | PM PDT | | | | +-------+ +--------+---+---+ +---+---+ | | | +---+---+ + +-------+ +--------+---+---+ | potassium chloride (K-DUR) ER | Given | 09/09/19 | 40 mEq | | | | tablet 40 mEq 40 mEq, Oral, | | 16 8:08 | | | | | ONCE, [facility] 09/09/15 at 0815, For 1 | | AM PDT | | | | | dose | | | | | | + +-------+ +--------+---+---+ +---+---+ | | | +---+---+ + +---------+ +---------+-------+---+ | sodium chloride 0.9% (NS) bolus | New Bag | 09/06/19 | 500 mLs | 500 | | | 500 mL 500 mL, Intravenous, | | 16 2:37 | | mL/hr | | | Administer over 1 Hours, ONCE, | | PM PDT | | | | | 09/06/15 at 1500, For 1 dose, | | | | | | | Give starting [address], | | | | | | | | | | | | | + +---------+ +---------+-------+---+ +---+---+ | | | +---+---+ + +---------+ +---------+-------+---+ | sodium chloride 0.9% (NS) bolus | New Bag | 06/01/20 | 500 mLs | 250 | | | 500 mL 500 mL, Intravenous, | | 16 6:09 | | mL/hr | | | Administer over 2 Hours, ONCE, | | PM PDT | | | | | 09/08/15 at 1830, For 1 dose | | | | | | + +---------+ +---------+-------+---+ +---+---+ | | | +---+---+ + +---------+ +---+ +---+ | sodium chloride 0.9% (NS) | New Bag | 09/10/19 | | 75 mL/hr | | | infusion at 75 mL/hr, | | 16 8:37 | | | | | Intravenous, CONTINUOUS, Starting | | AM PDT | | | | | 09/07/15 at 0600 | | | | | | + +---------+ +---+ +---+ +---------+ +---+ +---+ | New Bag | 09/09/19 | | 75 mL/hr | | | | 16 6:39 | | | | | | PM PDT | | | | +---------+ +---+ +---+ | New Bag | 09/08/19 | | 75 mL/hr | | | | 16 9:24 | | | | | | PM PDT | | | | +---------+ +---+ +---+ +---+---+ | | | +---+---+ + +-------+ +--------+---+---+ | spironolactone (ALDACTONE) | Given | 09/10/19 | 100 mg | | | | tablet 100 mg 100 mg, Oral, 2 | | 16 8:37 | | | | | TIMES DAILY, First dose (after | | AM PDT | | | | | last modification) on 09/04/15 | | | | | | | at 0900 | | | | | | + +-------+ +--------+---+---+ +-------+ +--------+---+---+ | Given | 09/09/19 | 100 mg | | | | | 16 8:43 | | | | | | PM PDT | | | | +-------+ +--------+---+---+ | Given | 09/09/19 | 100 mg | | | | | 16 8:00 | | | | | | AM PDT | | | | +-------+ +--------+---+---+ +---+---+ | | | +---+---+ + +-------+ +-------+---+---+ | spironolactone (ALDACTONE) | Given | 09/03/19 | 50 mg | | | | tablet 50 mg 50 mg, Oral, DAILY, | | 16 8:17 | | | | | First dose on [facility] 09/02/15 at | | AM PDT | | | | | 0900 | | | | | | + +-------+ +-------+---+---+ +-------+ +-------+---+---+ | Given | 09/02/19 | 50 mg | | | | | 16 10:00 | | | | | | AM PDT | | | | +-------+ +-------+---+---+ +---+---+ | | | +---+---+ + +-------+ +-------+---+---+ | spironolactone (ALDACTONE) | Given | 09/03/19 | 50 mg | | | | tablet 50 mg 50 mg, Oral, ONCE, | | 16 9:14 | | | | | 09/03/15 at 0915, For 1 dose, | | AM PDT | | | | | To make total dose of 100mg, | | | | | | + +-------+ +-------+---+---+ +---+---+ | | | +---+---+ + +---------+ +--------+-------+---+ | thiamine (VITAMIN B-1) 100 mg | New Bag | 09/01/19 | 100 mg | 102 | | | in sodium chloride 0.9% 50 mL | | 16 9:44 | | mL/hr | | | IVPB 100 mg, Intravenous, | | PM PDT | | | | | Administer over 30 Minutes, ONCE, | | | | | | | 09/01/15 at 1930, For 1 dose | | | | | | + +---------+ +--------+-------+---+ +---+---+ | | | +---+---+ documented in this encounter
--- OUTSIDE RECORDS SUMMARY | ~2020-01-23 | XMS | Encounter Summary ---
Demographics + + + | Address | [address] | | | [place] [address] | + + + | Home Phone | | + + + | Preferred Language | Unknown | + + + | Marital Status | Single | + + + | Nondenominational Affiliation | [id number] | + + + | Race | or | + + + | Ethnic Group | Not or | + + + Author + + + | Author | [facility] | | | and [place] | + + + | Organization | [facility] | | | and [place] | + + + | Address | Unknown | + + + | Phone | Unavailable | + + + Support + + + + + | Name | Relationship | Address | Phone | + + + + + | Joanne Pham | ECON | [address] | | | | | [place] | | | | | [address] | | + + + + + | Viktor Son | EDDIE | Unknown | | + + + + + | Edd Gill | ECON | Unknown | | + + + + + | Conner Barber | ECON | Unknown | | + + + + + Care Team Providers + +------+ + | [facility] [employer] Psychologist Name | Role | Phone | + [...] | | [place] [address] | [place] [address] | | | | | [address] | [phone] | | | | | [phone] | | | +--------+ + + + [...] 11:26 AM PDTOutside record: Cytology report from [facility], dos: 7-26-17. Sent to scan. documented in this encounter Plan of Treatment Not on filedocumented as of this encounter Visit Diagnoses Not on filedocumented in this encounter"
--- OUTSIDE RECORDS SUMMARY | ~2020-01-23 | XMS | Encounter Summary ---
Demographics + + + | Address | [address] | | | [place] [address] | + + + | Home Phone [...] Author + + + | Author | [facility] | | | and [place] | + + + | Organization | [facility] | | | and [place] | + + + | Address | Unknown | + + + | Phone | Unavailable | + + + Support + + + + + | Name | Relationship | Address | Phone | + + + + + | Joanne Pham | ECON | [address] | | | | | [place] | | | | | [address] | | + + + + + | Viktor Son | EDDIE | Unknown | | + + + + + | Edd Gill | ECON | Unknown | | + + + + + | Conner Barber | ECON | Unknown | | + + + + + Care Team Providers + +------+ + | Care Population Geneticist Name | Role | Phone | + [...] | | SHONDA ALVAREZ | [place] [address] | | | | | [place] [address] | | | | | | [phone] | | | +--------+ + + + [...] for comparison only - no result from [place]. | [facility] | + + + + +---------+ + + | Performing | Address | City/State/Zipcode | Phone Number | | Organization | | | | + +---------+ + + | [facility] | | | | + +---------+ + + documented in this encounter Visit Diagnoses Not on filedocumented in this encounter"
--- OUTSIDE RECORDS SUMMARY | ~2020-01-23 | XMS | Encounter Summary ---
Demographics + + + | Address | [address] | | | [place] [address] | + + + | Home Phone | | + + + | Preferred Language | Unknown | + + + | Marital Status | Single | + + + | Anglican Affiliation | 1041 | + + + [...] + | Joanne Pham | ECON | [address] | | | | | [place] | | | | | [address] | | + + + + + | Viktor Son | EDDIE | Unknown | | + + + + + | Edd Gill | ECON | Unknown | | + + + + + | Conner Barber | ECON | Unknown | | + + + + + Care Team Providers + +------+ + | Care Language Therapist Name | Role | Phone | + +------+ + PCP | Unavailable | + +------+ + Encounter Details +--------+ + + + + | Date | Type | Department | Care Team | Description | +--------+ + + + + | 02/06/ | Hospital | [facility] | [place], | Fever; Seizure | | 2013 - | Encounter | [facility] | MD [address] | ([facility]); Alcohol | | | | [address] | [address] | abuse; UTI (lower | | 02/13/ | | [place], [place] | [place] [address] | urinary tract | | 2013 | | [id number] | [phone] | infection); Hepatic | | | | [phone] | | encephalopathy | | | | [...] Date of Service: 02/13/14 0955 Status: Signed Entry Level: Micki Redding MD (Physician) Related Notes: Original Note by Micki Redding MD (Physician) filed at 02/13/14 1002 [facility] Service: Hospitalist Physician Discharge Summary Patient ID: [...] ESOPHAGOGASTRODUODENOSCOPY; Surgeon: Mitchell Stewart IV, MD; Location: [facility]; Service: Gastroenterology; Laterality: N/A; [...] Feb 07 2014 3:55AM Referring Provider Line: [phone] ID: 001 X-ray Chest 1 View 02/09/2014 [...] The mitr al valve is normal. 18. Fxcw-gv-miuagafm mitral regurgitation is present. 19. , the [...] are the prescriptions that you need to grain picker. You may get the following medications from [...] summary. This entry has been created using Micromuscle Speech Recognition software and Accept Software. The entry has been reviewed and there [...] Date of Service: 02/13/14 1508 Status: Signed Entry Level: Flora Seaman RN (Registered Nurse) Discharge teaching [...] Efra Gotti PTA Service: (none) Author Type: Food And Beverage Attendant Filed: 02/13/14 1051 Date of Service: 02/13/14 1049 Status: Signed Entry Level: Efra Gotti PTA (Food And Beverage Attendant) 02/13/14 1049 PT Last Visit PT Received [...] 02/12/142031 Date of Service: 02/12/142028 Status: Signed Entry Level: Alessandro Ward RN (Registered Nurse) Per protocol, CIWA discontinued as of 1999 Micki Walton MD - 02/12/2014 2:08 PM PSTFormatting of this note might be different from t hanny original. Progress Notes by Micki Redding MD at 02/12/141407 Author: Micki Redding MD Service: (none) Author Type: Physician Filed: 02/12/14 1540 Date of Service: 02/12/14 1408 Status: Signed Entry Level: Micki Redding MD (Physician) [facility] Service: Hospitalist Progress Note Hospital [...] Feb 07 2014 3:55AM Referring Provider Line: [phone] ID: 001 X-ray Chest 1 View 02/09/2014 [...] PM This entry has been created using Micromuscle Speech Recognition software and Accept Software. The entry has been reviewed and there may still exist sound alike word errors. Mallory Gonzalez PT - 02/12/2014 9:28 AM PST Therapy Progress Note by Mallory Metz PT at 02/12/14927 Author: Mallory Metz PT Service: (none) Author Type: Physical Therapist Filed: 02/12/14 1121 Date of Service: 02/12/14927 Status: Signed Entry Level: Mallory Metz PT (Physical Therapist) 02/12/14927 PT Last Visit PT Received On 02/12/14 Reason for Treatment Other (comment) (seizure and ETOH withdrawl) Requires PT Follow Up Awaiting tx order Follow up PT Only? No PT Eval/Reassessment Date 02/12/14 Assistance Required 1 person Cyber Defense Incident Responder Needed No Precautions Other Precautions fall risk, [...] this hospital stay. Prior Function Level of [place] Independent with functional mobility;Independent with ADLs;Independe nt [...] Eval/Reassessment Date 02/12/14 Assistance Required 1 person Cyber Defense Incident Responder Needed No Precautions Other Precautions fall risk, seizure Other Comments Comments Pt admitted to the hospital due to seizure and ETOH withdrawl. Upon PT arrival, pt in bathroom with NET WEB APPLICATION DEVELOPER. pt Handoff from NET WEB APPLICATION DEVELOPER. Pt agreeable to PT assessment. Pt is [...] 02/12/14323 Date of Service: 02/12/14322 Status: Signed Entry Level: Alessandro Ward RN (Registered Nurse) Left message with PICC RN about clotted lines & requested that someone come to assess this am Dimitri Head MS CCC-OPHTHALMIC MEDICAL TECHNICIAN - 02/11/2014 5:18 PM PST Therapy Progress Note by Anette Hernandez MS CCC-OPHTHALMIC MEDICAL TECHNICIAN at 02/11/141717 Author: Anette Hernandez MS CCC-OPHTHALMIC MEDICAL TECHNICIAN Service: (none) Author Type: Speech and Language Pathol ogist Filed: 02/11/141717 Date of Service: 02/11/141717 Status: Signed Entry Level: Anette Hernandez MS CCC-OPHTHALMIC MEDICAL TECHNICIAN (Speech and Language Pathologist) 02/11/141714 Swallowing Assessment [...] /sx aspiration. Pt no longer requires acute OPHTHALMIC MEDICAL TECHNICIAN services. OPHTHALMIC MEDICAL TECHNICIAN to d/c, pleas re-order if pt s tatus changes. Staff Notified RN Plan of Care Treatment Plan No futher therapy recommended;Discharge from at this time Dysphagia Goals Pt will have safe/efficient oral intake Thin liquids;Goal met ANETTE HERNANDEZ MS CCC-OPHTHALMIC MEDICAL TECHNICIAN 02/11/2014 onversion Giraldo saction, Provider Unknown - 02/11/2014 4:50 PM PSTFormatting of this note might be differen t from the original. Case Management by HANNAH Brian at 02/11/14 1650 Author: HANNAH Brian Service: (none) Author Type: Column Precaster Filed: 02/11/141701 Date of Service: 02/11/141649 Status: Signed Entry Level: HANNAH Brian (Column Precaster) 02/11/14 1600 Discharge Planning Evaluation Admitting Diagnosis Seizure, ETOH withdrawl Anticipated Disposition Facility Type Home PERMIT REVIEW ASSISTANT met with Pt regarding discharge planning, states she is planning to return to prior morgan ing environment where she lives in a home owned by her aunt Joanne Pham. Pt states home is occupied by her uncle, brother and two other women, states there is recreational drinkin g in the home. PERMIT REVIEW ASSISTANT asked Pt about brusing on legs/arms, denies how they go there, was guarded about her en vironment. PERMIT REVIEW ASSISTANT encouraged to stay with other family members [...] Lolita Lamas, Alcohol and Drug Counselor at [facility], states Pt has a standing appointment at 10am every . Lolita states she has assisted Pt with ho using resources and states Pt is on a waiting list. Lolita states Pt has been history of bein g homeless, being destitute and living in alleys in the streets in [place], [place], before being taken care by Pt aunt. Lolita Lamas states she has tried to place Pt in inpatient treatment, states this is difficu lt due to Pt being end stage liver disease. [facility] - [address] ([phone]) [address] / [address] / [place] [address] / Pt does not want to consider placement in a correction Facility. DCP: Home ARUN CHAVEZ, Log Washer [phone] cell Sarah Rangel, Provider Unknown - 02/11/2014 1:45 PM PST Therapy Progress Note by Fabiana Ortiz PT at 02/11/14 1345 Author: Fabiana Ortiz PT Service: (none) Author Type: Physical Therapist Filed: 02/11/14 1352 Date of Service: 02/11/14 1345 Status: Signed Entry Level: Fabiana Ortiz PT (Physical Therapist) 02/11/14 1345 [...] Date of Service: 02/11/14 1045 Status: Signed Entry Level: Fabiana Ortiz PT (Physical Therapist) 02/11/14 1045 PT Last Visit PT Received On 02/11/14 Requires PT Follow Up Unavailable Other Comments Comments Attempted to see pt 2x this AM, she was in with the NET WEB APPLICATION DEVELOPER getting cleaned up and NET WEB APPLICATION DEVELOPER asked PT to come back in 15 min, then social service technician in with pt upon second arrival and aske d pt to come back at a later time. Will attempt to see pt as census allows onver miriam Transaction, Provider Unknown - 02/11/2014 10:09 AM PST Case Management by HANNAH Brian at 02/11/14 1009 Author: HANNAH Brian Service: (none) Author Type: Column Precaster Filed: 02/11/14 1010 Date of Service: 02/11/14 1009 Status: Signed Entry Level: HANNAH Brian (Column Precaster) 02/11/14 1000 Discharge Planning Evaluation Admitting Diagnosis Seizure, ETOH withdrawl Anticipated Disposition Facility Type Home PERMIT REVIEW ASSISTANT came by room to assess Pt for discharge planning was in bathroom, will continue to foll ow for discharge needs. ARUN CHAVEZ, Log Washer [phone] cell onver miriam Transaction, Provider Unknown - 02/11/2014 8:50 AM PST Progress Notes by Savannah Clarke RN at 02/11/14 0850 Author: Savannah Clarke RN Service: (none) Author Type: Registered Nurse Filed: 02/11/14 0855 Date of Service: 02/11/14 0850 Status: Signed Entry Level: Savannah Clarke RN (Registered Nurse) Called by [...] Notes by Micki Redding MD at 02/11/14 0706 Author: Micki Redding MD Service: (none) Author Type: Physician Filed: 02/11/14 0754 Date of Service: 02/11/1446 Status: Signed Entry Level: Micki Redding MD (Physician) [facility] Service: Hospitalist Progress Note Hospital Day: LOS: 5 days SUBJECTIVE Patient Summary: 43-year-old female with history of alcohol abuse. history of withdra wal seizures, cirrhosis, hypertension, admitted with seizures and urinary tract infection. S he was started on Zosyn and Zithromax for possible pneumonia and switched over to Omnicef an d Zithromax . Patient is on the [facility] protocol follow-up, withdrawal Events Overnight: Patient states [...] Feb 07 2014 3:55AM Referring Provider Line: [phone] ID: 001 X-ray Chest 1 View 02/09/2014 [...] AM This entry has been created using Micromuscle Speech Recognition software and Accept Software. The entry has been reviewed and there may still exist sound alike word errors. onversion Trans action, Provider Unknown - 02/10/2014 4:20 PM PST Therapy Progress Note by Daly Cuba MS CCC-OPHTHALMIC MEDICAL TECHNICIAN at 02/10/14 6070 Author: Daly Cuba MS CCC-OPHTHALMIC MEDICAL TECHNICIAN Service: (none) Author Type: Speech and Caddie Supervisor ologist Filed: 02/10/14 2008 Date of Service: 02/10/14 1620 Status: Signed Entry Level: Daly Cuba MS CCC-OPHTHALMIC MEDICAL TECHNICIAN (Speech and Language Pathologist) 02/10/14 1620 Swallowing [...] diet to regular,cut up,cont th in liquids. OPHTHALMIC MEDICAL TECHNICIAN to f/u x1 to ensure santy. Staff [...] Service: (none) Author Type: Physician Filed: 02/10/14 5058 Date of Service: 02/10/14811 Status: Signed Entry Level: Micki Redding MD (Physician) [facility] Service: Hospitalist Progress Note Hospital [...] Feb 07 2014 3:55AM Referring Provider Line: [phone] ID: 001 X-ray Chest 1 View 02/09/2014 [...] AM This entry has been created using Micromuscle Speech Recognition software and Accept Software. The entry has been reviewed and there may still exist sound alike word errors. onversion Trans action, Provider Unknown - 02/10/2014 5:42 AM PST Progress Notes by Yamileth Mcnally RN at 02/10/1442 Author: Yamileth Mcnally RN Service: (none) Author Type: Registered Nurse Filed: 02/10/14 0553 Date of Service: 02/10/14541 Status: Signed Entry Level: Yamileth Mcnally RN (Registered Nurse) Received pt. Refer to [facility] assessment, medicated at that time, slept until 0200, awoke hun gry, at cheese sandwish, jetanao, 7up, tolerated well. Became emotional crying because her caleb ther did not visit, re-orientated to date and time, no recollection of how she got here, rem embers going to [place] in [place]. Asked pt. If she was trying to [...] Date of Service: 02/09/14 1714 Status: Signed Entry Level: Manisha Lemus RN (Registered Nurse) Nurse called to report picc line not flushing after picc placed. Picc nurse changed dressin g and pulled out picc to 7cm with triple lumens flushing well and positive blood return. New sterile dressing placed. onver miriam Transaction, Provider Unknown - 02/09/2014 4:45 PM PST Therapy Progress Note by Daly Cuba MS CCC-OPHTHALMIC MEDICAL TECHNICIAN at 02/09/14 1645 Author: Daly Cuba MS CCC-OPHTHALMIC MEDICAL TECHNICIAN Service: (none) Author Type: Speech and Caddie Supervisor ologist Filed: 02/09/141651 Date of Service: 02/09/141644 Status: Signed Entry Level: Daly Cuba MS CCC-OPHTHALMIC MEDICAL TECHNICIAN (Speech and Language Pathologist) 02/09/141644 Swallowing Assessment [...] current diet at this time w/aspiration precautions. OPHTHALMIC MEDICAL TECHNICIAN to cont to fo llow for diet sanyt and to upgrade as indicated. Staff Notified RN Plan of Care Treatment Plan ST to follow;Dysphagia treatment;Continue with current plan Follow up treatments Diet tolerance monitoring;Patient/Family education;Assessment for upgr tirso Dysphagia Goals Route Relief Driver Goals Safe/efficient oral intake Pt will have safe/efficient oral intake Thin liquids;Goal progressing Celso Madsen MD - 02/09/2014 1:05 PM PST Progress Notes by Celso Goldberg MD at 02/09/14 1305 Author: Celso Goldberg MD Service: Hospitalist Author Type: Physician Filed: 02/09/14 131 Date of Service: 02/09/14 1305 Status: Signed Entry Level: Celso oGldberg MD (Physician) [facility] Service: Hospitalist Progress Note Pt: Shaila Son AGE/SEX: 43 y.o. female ROOM: [address] [place] [address] : 1970 PCP: Efra Holguin ADMIT DATE: [...] Unable to recall, this information came from [facility] record Ibuprofen Other (See Comments) Pt. Unable to recall, this information came from [facility] record OBJECTIVE: Vitals: Patient Vitals [...] results found for this basename: PHART, PO2ART, PVJ5XHI, R9TFWRRE, BEART, in the last 1 68 hours [...] Date of Service: 02/09/14 1146 Status: Signed Entry Level: Lonnie Liu RD, NITIN (Registered Dietitian) Nutrition [...] on admit wt of 68.9 kg. Kcal: 5234-8968 kcal/day (30-35 kcal/kg). Increased kcal needs with [...] meal by time of discharge. Recommendations: General [facility] diet with thin liquids as ordered. Can limit sodium if fluid retention an issue. Further diet consistency recommendations per OPHTHALMIC MEDICAL TECHNICIAN. Sit ter/nursing staff to assist with feeds. [...] 02/09/14347 Date of Service: 02/09/14346 Status: Signed Entry Level: Yumiko Watson RN (Registered Nurse) Patient has been experiencing hallucinations and agitation. Attempting to pull out IV line s and kick sitter when repositioning the patient. Medicating with Valium every hour with [place] N ativan and haldol as well. CIWA scores remain above 15. Will continue to monitor. Celso Madsen MD - 02/08/2014 5:30 PM PST Progress Notes by Celso Goldberg MD at 02/08/141729 Author: Celso Goldberg MD Service: Hospitalist Author Type: Physician Filed: 02/08/14 678 Date of Service: 02/08/141729 Status: Addendum Entry Level: Celso Goldberg MD (Physician) Related Notes: Original Note by Celso Goldberg MD (Physician) filed at 02/08/14 4728 [facility] Service: Hospitalist Progress Note Pt: Shaila Son AGE/SEX: 43 y.o. female ROOM: [address] [place], [place] [address] : 1970 PCP: Efra Holguin ADMIT DATE: [...] Unable to recall, this information came from [facility] record Ibuprofen Other (See Comments) Pt. Unable to recall, this information came from [facility] record OBJECTIVE: Vitals: Patient Vitals [...] results found for this basename: PHART, PO2ART, SER3ZES, D3ELADMA, BEART, in the last 1 68 hours [...] alcohol withd yamila, continue IV Ativan per [facility] protocol and for seizure. Possible hepatic encephalopathy [...] 1126 Date of Service: 02/08/141121 Status: Signed Entry Level: Elida Gamble RN (Registered Nurse) Patient became [...] 02/08/14812 Date of Service: 02/08/14809 Status: Signed Entry Level: Elida Gamble RN (Registered Nurse) Discussed case [...] alarm in place with frequent nurse and NET WEB APPLICATION DEVELOPER presence in patients room. Patient confused and hallucinating. Will continue to monitor onver miriam Transaction, Provider Unknown - 02/08/2014 4:33 AM PST Progress Notes by Alessandro Ward RN at 02/08/14432 Author: Alessandro Ward RN Service: (none) Author Type: Registered Nurse Filed: 02/08/145 Date of Service: 02/08/14432 Status: Signed Entry Level: Alessandro Ward RN (Registered Nurse) Pt experiencing visual and auditory hallucinations, very agitated, impulsive. CIWA protoco l in place. Pt requires very close supervision onver miriam Transaction, Provider Unknown - 02/08/2014 1:47 AM PDT Progress Notes by Alessandro Ward RN at 02/08/14146 Author: Alessandro Ward RN Service: (none) Author Type: Registered Nurse Filed: 02/08/14 0154 Date of Service: 02/08/14146 Status: Signed Entry Level: Alessandro Ward RN (Registered Nurse) Pt very [...] Olman Mendoza RN Service: (none) Author Type: Log Washer Filed: 02/07/14 1432 Date of Service: 02/07/141427 Status: Signed Entry Level: Olman Mendoza RN (Log Washer) 02/07/141426 Discharge Planning Evaluation Admitting Diagnosis Seizure, [...] PM PDT Therapy Progress Note by CONOR Ramírez-OPHTHALMIC MEDICAL TECHNICIAN at 02/07/14 1202 Author: CONOR Ramírez-OPHTHALMIC MEDICAL TECHNICIAN Service: (none) Author Type: Speech and Language Patholo gist Filed: 02/07/14 1202 Date of Service: 02/07/14 120 Status: Signed Entry Level: CONOR Ramírez-OPHTHALMIC MEDICAL TECHNICIAN (Speech and Language Pathologist) 02/07/14 1125 Swallowing [...] for upgrade, and swallow safety. Staff Notified MD;RN;NET WEB APPLICATION DEVELOPER Plan of Care Treatment Plan Dysphagia treatment;ST to follow;Daily 4 to 6 times a week Follow up treatments Swallow strategies;Diet tolerance monitoring;Patient/Family education; Assessment for upgrade Dysphagia Goals Route Relief Driver Goals Safe/efficient oral intake Pt will have safe/efficient oral intake Thin liquids;Dysphagia mechanically altered diet;N ew/revised goal;With min cues Short Term Goals Tolerate diet Pt will tolerate diet Dysphagia mechanically altered;With min supervision;New/revised goal Anitha Duran MA CFY-OPHTHALMIC MEDICAL TECHNICIAN 02/07/2014 Celso Madsen MD - 02/07/2014 8:52 AM PDT Progress Notes by Celso Goldberg MD at 02/07/14851 Author: Celso Goldberg MD Service: Hospitalist Author Type: Physician Filed: 02/07/142023 Date of Service: 02/07/14851 Status: Addendum Entry Level: Celso Goldberg MD (Physician) Related Notes: Original Note by Celso Goldberg MD (Physician) filed at 02/07/141931 [facility] Service: Hospitalist Progress Note Pt: Shaila Son AGE/SEX: 43 y.o. female ROOM: [address] [place] [address]- : 1970 PCP: Efra Holguin ADMIT DATE: [...] Unable to recall, this information came from [facility] record Ibuprofen Other (See Comments) Pt. Unable to recall, this information came from [facility] record OBJECTIVE: Vitals: Patient Vitals [...] results found for this basename: PHART, PO2ART, AYG5NUZ, B2NFIOYU, BEART, in the last 1 68 hours [...] recurrence since admission, continue IV Ativan per [facility] protocol and for seizure. She has mild [...] Jelly Agudelo RN at 02/07/14339 Author: Jelly Agudeol RN Service: (none) Author Type: Registered Nurse Filed: 02/07/14341 Date of Service: 02/07/14339 Status: Signed Entry Level: Jelly Agudelo RN (Registered Nurse) This Rn received message from another staff member that a male named Meño called to the un it stating to be the brother of Shaila Son. I am unable to confirm this with Shaila at this time due to her altered mental status. He left a phone number of [phone]. onver miriam Transaction, Provider Unknown - 02/07/2014 1:51 AM PDT Progress Notes by Vandana Mcnally RPH at 02/07/14150 Author: Vandana Mcnally RPH Service: (none) Author Type: Pharmacist Filed: 02/07/14150 Date of Service: 02/07/14150 Status: Signed Entry Level: Vandana Mcnally RPH (Pharmacist) Clinical Pharmacy Note: Renal Monitoring & Extended Interval Zosyn Dosing Shaila Son 43 y.o. female Height: 170.2 cm Weight: 68.9 kg Serum Creatinine: 0.6 mg/dL (from [facility]) Estimated creatinine clearance - Cockcroft-Gault CrCl: 126 [...] H&P by Deonte Morales MD at 02/06/14 082 Author: Deonte Morales MD Service: Hospitalist Author Type: Physician Filed: 02/07/14 0006 Date of Service: 02/06/142340 Status: Signed Entry Level: Deonte Morales MD (Physician) [facility] Service: Hospitalist Admission History & Physical Date of Admission: 02/06/2014 Requesting Physician: Dr Baptiste, Emergency Department Reason for Admission: Seizure / transfer from [facility] History Obtained From: patient CHIEF [...] the patie nt was subsequently transferred to [facility] for further assessment and treatment. Patient refers positive dysuria and urinary frequency. In the ED at [facility] positive fever with a MAXIMUM TEMPERATURE [...] ESOPHAGOGASTRODUODENOSCOPY; Surgeon: Mitchell Stewart IV, MD; Location: [facility]; Service: Gastroenterology; Laterality: N/A; anesthesia assist if available since may be difficult to sedate Hx of tracheostomy Immunizations: Influenza: Pneumoccocal: Allergies Allergen Reactions Ciprofloxacin Other (See Comments) Pt. Unable to recall, this information came from [facility] record Ibuprofen Other (See Comments) Pt. Unable to recall, this information came from [facility] record (Not in a hospital [...] brudzinsky DATA [facility] with no acute [...] the ED as a transfer from [facility] with seizures, fever. Assessment -Seizures. [...] 02/11/141117 Date of Service: 02/11/141111 Status: Signed Entry Level: Loni Verma RD (Registered Dietitian) Consult Orders: 1. Inpatient consult to Dietary [[id number]] ordered by Micki Redding MD at 02/11 6584 Nutrition Assessment and Recommendations Assessment: Nutritionally pertinent [...] 02/07/1425 Date of Service: 02/07/1425 Status: Signed Entry Level: Scott Kilgore RN (Registered Nurse) Urine collected and sent to lab. Scott Kilgore RN 02/07/1425 onver miriam Transaction, Provider Unknown - 02/06/2014 10:46 PM PDT ED Notes by Scott Kilgore RN at 02/06/14 2246 Author: Scott Kilgore RN Service: (none) Author Type: Registered Nurse Filed: 02/06/142245 Date of Service: 02/06/142245 Status: Signed Entry Level: Scott Kilgore RN (Registered Nurse) Lab at bedside with pt. Scott Kilgore RN 02/06/142245 onver miriam Transaction, Provider Unknown - 02/06/2014 10:40 PM PDT ED Notes by Scott Kilgore RN at 02/06/142239 Author: Scott Kilgore RN Service: (none) Author Type: Registered Nurse Filed: 02/06/142239 Date of Service: 02/06/142239 Status: Signed Entry Level: Scott Kilgore RN (Registered Nurse) Lab called for PASTING MACHINE OPERATOR, to draw BC x2. Scott Kilgore RN 02/06/142239 Jakub Munguia DO - 02/06/2014 10:27 PM PDT ED Provider Notes by Jakub Baptiste DO at 02/06/142226 Author: Jakub Baptiste DO Service: Emergency Department Author Type: Physician Filed: 02/07/14 0700 Date of Service: 02/06/142226 Status: Signed Entry Level: Jakub Baptiste DO (Physician) Procedure Orders: 1. Critical Care [[id number]] ordered by Jakub Baptiste DO at 02/07/14 0659 [facility] Department of Emergency Medicine 7:00 AM History of Present Illness Patient Identification Shaila Son is a 43 y.o. female. Patient information was obtained from patient and past medical records. History/Exam limitations: none. Patient presented to the Emergency Department by: [facility] Chief Complaint Chief Complaint Patient presents with Alcohol Problem Xfer from [facility] System for ETOH withdrawl. Delirium Tremens (DTS) Seizures [...] ESOPHAGOGASTRODUODENOSCOPY; Surgeon: Mitchell Stewart IV, MD; Location: [facility]; Service: Gastroenterology; Laterality: N/A; [...] Unable to recall, this information came from [facility] record Ibuprofen Other (See Comments) Pt. Unable to recall, this information came from [facility] record History Social History Marital [...] Value Ref Range Date/Time Urine microscopic only [[id number]] (Abnormal) Collected: 02/06/142335 Order Status: Completed Updated: 02/07/14 0048 WBC 11-15 0 - 5 /hpf RBC 16-25 0 - 5 /hpf EPITHELIAL 26-50 /lpf BACTERIA 4+ (A) NONE SEEN Mucus, UA 2+ Blood culture_set 1 [[id number]] Collected: 02/06/142249 Order Status: Sent Updated: 02/07/1411 Specimen Information: Blood / Blood Blood culture, set 2 [[id number]] Collected: 02/06/142252 Order Status: Sent Updated: 02/07/1411 Specimen Information: Blood / Blood POC clinitek 10 [[id number]] (Abnormal) Collected: 02/06/142334 Order Status: Completed Updated: [...] NEGATIVE WBC, UA NEGATIVE NEGATIVE Ammonia level [[id number]] (Abnormal) Collected: 02/06/142252 Order Status: Completed Updated: [...] List Dr. Jakub Baptiste D.O. Dictation software, [employer], used which may contain error for similar [...] or life-threatening deterioration of the following conditions: SEAM HAMMERER failure or compromise. Critical care was time [...] 02/06/142225 Date of Service: 02/06/142225 Status: Signed Entry Level: Grant Ratliff RN (Registered Nurse) Dr Baptiste at bedside with pt. Grant Ratliff RN 02/06/142225 onver miriam Transaction, Provider Unknown - 02/06/2014 10:14 PM PDT ED Notes by Scott Kilgore RN at 02/06/142213 Author: Scott Kilgore RN Service: (none) Author Type: Registered Nurse Filed: 02/06/142213 Date of Service: 02/06/142213 Status: Signed Entry Level: Scott Kilgore RN (Registered Nurse) Bed: 03 Expected date: Expected time: Means of arrival: Comments: onver miriam Transaction, Provider Unknown - 02/06/2014 9:48 PM PDT ED Notes by Jose Carlos Anderson RN at 02/06/142147 Author: Jose Carlos Anderson RN Service: (none) Author Type: Registered Nurse Filed: 02/06/142150 Date of Service: 02/06/142147 Status: Signed Entry Level: Jose Carlos Anderson RN (Registered Nurse) Pt is a transfer from [facility] for ETOH withdrawal and seizures. Pt has Hx ETOH abuse , seizures, anemia, and cirhossis. Pt has not had ETOH for three days and had seizures at h ome. Pt was given Ativan and zofran at [facility], no seizures at [facility] Pt is u nsteady on feet, has [...] 02/10/14307 Date of Service: 02/10/14307 Status: Signed Entry Level: Yamileth Mcnally RN (Registered Nurse) Problem: Defensive [...] 02/09/141312 Date of Service: 02/09/141309 Status: Signed Entry Level: Alice Varma RN (Registered Nurse) No seizure [...] 02/08/14737 Date of Service: 02/08/14737 Status: Signed Entry Level: Elida Gamble RN (Registered Nurse) Problem: RISK [...] EXTERNAL | | | | performed at [facility];888 | | LAB | | | | [address] [facility];[place], [place] | | | | | | [address] | | | | + + + [...] EXTERNAL | | | | performed at [facility];[address] | | LAB | | | | [address];[place] | | | | | | [address] | | | | + + + + + + | Non- | 2.75 (L)Comment: Testing | 3.70 - 5.10 | EXTERNAL | | | Red Blood | performed at [facility];888 | M/uL | LAB | | | Cells | [address];[place] | | | | | Counted | [address] | | | | + + + + + + | Hemoglobin | 8.5 (L)Comment: Testing | 11.3 - 15.5 | EXTERNAL | | | | performed at [facility];888 | g/dL | LAB | | | | [address];[place] | | | | | | [address] | | | | + + + + + + | Hematocrit, | 25.3 (L)Comment: Testing | 34.0 - 46.0 % | EXTERNAL | | | POC | performed at [facility];[address] | | LAB | | | | [address];[place] | | | | | | [address] | | | | + + + + + + | MCV | 92.0Comment: Testing | 80.0 - 100.0 fl | EXTERNAL | | | | performed at [facility];[address] | | LAB | | | | [address];[place] | | | | | | [address] | | | | + + + + + + | MCH | 31.0Comment: Testing | 27.0 - 34.0 pg | EXTERNAL | | | | performed at [facility];[address] | | LAB | | | | [address];[place] | | | | | | [address] | | | | + + + + + + | MCHC | 33.6Comment: Testing | 32.0 - 35.5 | EXTERNAL | | | | performed at [facility];888 | g/dL | LAB | | | | [address];[place] | | | | | | [address] | | | | + + + + + + | RDW-CV | 58.2 (H)Comment: Testing | 37 - 53 fl | EXTERNAL | | | | performed at [facility];[address] | | LAB | | | | [address];[place] | | | | | | [address] | | | | + + + + + + | Platelet | 101 (L)Comment: Testing | 150 - 400 K/uL | EXTERNAL | | | Count | performed at [facility];[address] | | LAB | | | Plasma | [address];[place] | | | | | | [address] | | | | + + + + + + | MPV | 8.3Comment: Testing | fl | EXTERNAL | | | | performed at [facility];[address] | | LAB | | | | [address];[place] | | | | | | [address] | | | | + + + + + + | Differentia | AUTOMATEDComment: | | EXTERNAL | | | l Type | Testing performed at | | LAB | | | | [facility];[address];[place] [address] | | | | + + + + + + | % Segmented | 50.8Comment: Testing | % | EXTERNAL | | | | performed at [facility];[address] | | LAB | | | Neutrophils | [address];[place] | | | | | | [address] | | | | + + + + + + | % | 16.5Comment: Testing | % | EXTERNAL | | | Lymphocytes | performed at [facility];[address] | | LAB | | | | [address];[place] | | | | | | [address] | | | | + + + + + + | % Monocytes | 25.0Comment: Testing | % | EXTERNAL | | | | performed at [facility];[address] | | LAB | | | | [address];[place] | | | | | | [address] | | | | + + + + + + | % | 4.5Comment: Testing | % | EXTERNAL | | | Eosinophils | performed at [facility];[address] | | LAB | | | | [address];[place] | | | | | | [address] | | | | + + + + + + | % Basophils | 3.2Comment: Testing | % | EXTERNAL | | | | performed at [facility];[address] | | LAB | | | | [address];[place] | | | | | | [address] | | | | + + + + + + | Absolute | 1.9Comment: Testing | 1.9 - 7.4 K/uL | EXTERNAL | | | Segmented | performed at [facility];[address] | | LAB | | | Neutrophils | [address];[place] | | | | | | [address] | | | | + + + + + + | Absolute | 0.6 (L)Comment: Testing | 1.0 - 3.9 K/uL | EXTERNAL | | | Lymphocytes | performed at [facility];[address] | | LAB | | | | [address];[place] | | | | | | [address] | | | | + + + + + + | Absolute | 0.9 (H)Comment: Testing | 0 - 0.8 K/uL | EXTERNAL | | | Monocytes | performed at [facility];[address] | | LAB | | | | [address];[place] | | | | | | [address] | | | | + + + + + + | Absolute | 0.2Comment: Testing | 0 - 0.5 K/uL | EXTERNAL | | | Eosinophils | performed at [facility];[address] | | LAB | | | | [address];[place] | | | | | | [address] | | | | + + + + + + | Absolute | 0.1Comment: Testing | 0 - 0.1 K/uL | EXTERNAL | | | Basophils | performed at [facility];[address] | | LAB | | | | [address];[place] | | | | | | [address] | | | | + + + + + + | RBC | 1+Comment: ANISONORMAL | | EXTERNAL | | | Morphology | PLT MORPHTesting | | LAB | | | | performed at [facility];[address] | | | | | | [address];[place] | | | | | | [address] | | | | | | | [...] EXTERNAL | | | | performed at [facility], [address] | | LAB | | | | [address], | | | | | | [place] [address] | | | | + + + [...] | | | | | [place] [address] | | | | + + + + + + | K | 4.1Comment: Testing | 3.5 - 4.9 | EXTERNAL | | | | performed at [facility], [address] | mmol/L | LAB | | | | [address], | | | | | | [place] [address] | | | | + + + + + + | Cl | 105Comment: Testing | 99 - 109 mmol/L | EXTERNAL | | | | performed at [facility], [address] | | LAB | | | | [address], | | | | | | [place] [address] | | | | + + + + + + | CO2 | 25Comment: Testing | 23 - 32 mmol/L | EXTERNAL | | | | performed at [facility], [address] | | LAB | | | | [address], | | | | | | [place] [address] | | | | + + + + + + | Anion Gap | 6Comment: Testing | 5 - 20 mmol/L | EXTERNAL | | | | performed at [facility], [address] | | LAB | | | | [address], | | | | | | [place] [address] | | | | + + + + + + | Glucose, | 95Comment: Testing | 65 - 99 mg/dL | EXTERNAL | | | Fasting | performed at [facility], [address] | | LAB | | | | [address], | | | | | | [place] [address] | | | | + + + + + + | BUN | 9Comment: Testing | 8 - 25 mg/dL | EXTERNAL | | | | performed at [facility], [address] | | LAB | | | | [address], | | | | | | [place] [address] | | | | + + + + + + | Creatinine | 0.53Comment: Testing | 0.50 - 1.00 | EXTERNAL | | | | performed at [facility], [address] | mg/dL | LAB | | | | [address], | | | | | | [place] [address] | | | | + + + + + + | BUN/Creatin | 17Comment: Testing | | EXTERNAL | | | ine Ratio | performed at [facility], [address] | | LAB | | | | [address], | | | | | | [place] [address] | | | | + + + + + + | Calcium | 8.6Comment: Testing | 8.5 - 10.2 | EXTERNAL | | | | performed at [facility], [address] | mg/dL | LAB | | | | [address], | | | | | | [place] [address] | | | | + + + + + + | Protein, | 5.4 (L)Comment: Testing | 6.3 - 8.2 g/dL | EXTERNAL | | | Total | performed at [facility], [address] | | LAB | | | | [address], | | | | | | [place] [address] | | | | + + + + + + | Albumin | 2.1 (L)Comment: Testing | 3.6 - 5.0 g/dL | EXTERNAL | | | | performed at [facility], [address] | | LAB | | | | [address], | | | | | | [place] [address] | | | | + + + + + + | Globulin | 3.3Comment: Testing | 1.3 - 4.9 g/dL | EXTERNAL | | | | performed at [facility], [address] | | LAB | | | | [address], | | | | | | [place] [address] | | | | + + + + + + | A/G Ratio | 0.6 (L)Comment: Testing | 1.0 - 2.4 | EXTERNAL | | | | performed at [facility], [address] | | LAB | | | | [address], | | | | | | [place], [place] [address] | | | | + + + + + + | Bilirubin | 0.7Comment: Testing | 0.1 - 1.5 mg/dL | EXTERNAL | | | Total | performed at [facility], [address] | | LAB | | | | [address], | | | | | | [place] [address] | | | | + + + + + + | ALP, | 129 (H)Comment: Testing | 35 - 115 U/L | EXTERNAL | | | External | performed at [facility], [address] | | LAB | | | | [address], | | | | | | [place] [address] | | | | + + + + + + | AST | 37Comment: Testing | 10 - 45 U/L | EXTERNAL | | | | performed at [facility], [address] | | LAB | | | | [address], | | | | | | [place] [address] | | | | + + + + + + | ALT | 13Comment: Testing | 10 - 65 U/L | EXTERNAL | | | | performed at [facility], [address] | | LAB | | | | [facility], | | | | | | [place] [address] | | | | + + + [...] | | | | | | at [facility], [address] | | | | | | [facility], | | | | | | [place] [address] | | | | + + + [...] EXTERNAL | | | | performed at [facility];[address] | | LAB | | | | [address];[place], [place] | | | | | | [address] | | | | + + + [...] EXTERNAL | | | | performed at [facility], [address] | | LAB | | | | [address], | | | | | | [place] [address] | | | | + + + + + + | Non- | 2.96 (L)Comment: Testing | 3.70 - 5.10 | EXTERNAL | | | Red Blood | performed at [facility], [address] | [address]/uL | LAB | | | Cells | [address], | | | | | Counted | [place] [address] | | | | + + + + + + | Hemoglobin | 9.3 (L)Comment: Testing | 11.3 - 15.5 | EXTERNAL | | | | performed at [facility], [address] | g/dL | LAB | | | | [address], | | | | | | [place] [address] | | | | + + + + + + | Hematocrit, | 27.6 (L)Comment: Testing | 34.0 - 46.0 % | EXTERNAL | | | POC | performed at [facility], [address] | | LAB | | | | [address], | | | | | | [place] [address] | | | | + + + + + + | MCV | 93.4Comment: Testing | 80.0 - 100.0 fl | EXTERNAL | | | | performed at [facility], [address] | | LAB | | | | [address], | | | | | | [place] [address] | | | | + + + + + + | MCH | 31.3Comment: Testing | 27.0 - 34.0 pg | EXTERNAL | | | | performed at [facility], [address] | | LAB | | | | [address], | | | | | | [place] [address] | | | | + + + + + + | MCHC | 33.5Comment: Testing | 32.0 - 35.5 | EXTERNAL | | | | performed at [facility], [address] | g/dL | LAB | | | | [address], | | | | | | [place] [address] | | | | + + + + + + | RDW-CV | 57.8 (H)Comment: Testing | 37 - 53 fl | EXTERNAL | | | | performed at [facility], [address] | | LAB | | | | [address], | | | | | | [place] [address] | | | | + + + + + + | Platelet | 91 (L)Comment: Testing | 150 - 400 K/uL | EXTERNAL | | | Count | performed at [facility], [address] | | LAB | | | Plasma | [address], | | | | | | [place] [address] | | | | + + + + + + | MPV | 8.5Comment: Testing | fl | EXTERNAL | | | | performed at [facility], [address] | | LAB | | | | [address], | | | | | | [place] [address] | | | | + + + + + + | Differentia | AUTOMATEDComment: | | EXTERNAL | | | l Type | Testing performed at | | LAB | | | | [facility], [address] | | | | | | [place] | | | | | | [address] | | | | + + + + + + | % Segmented | 46.3Comment: Testing | % | EXTERNAL | | | | performed at [facility], [address] | | LAB | | | Neutrophils | [address], | | | | | | [place] [address] | | | | + + + + + + | % | 17.9Comment: Testing | % | EXTERNAL | | | Lymphocytes | performed at [facility], [address] | | LAB | | | | [address], | | | | | | [place], [place] [address] | | | | + + + + + + | % Monocytes | 25.9Comment: Testing | % | EXTERNAL | | | | performed at [facility], [address] | | LAB | | | | [address], | | | | | | [place], [place] [address] | | | | + + + + + + | % | 6.0Comment: Testing | % | EXTERNAL | | | Eosinophils | performed at [facility], [address] | | LAB | | | | [address], | | | | | | [place] [address] | | | | + + + + + + | % Basophils | 3.9Comment: Testing | % | EXTERNAL | | | | performed at [facility], [address] | | LAB | | | | [address], | | | | | | [place] [address] | | | | + + + + + + | Absolute | 1.5 (L)Comment: Testing | 1.9 - 7.4 K/uL | EXTERNAL | | | Segmented | performed at [facility], [address] | | LAB | | | Neutrophils | [address], | | | | | | [place] [address] | | | | + + + + + + | Absolute | 0.6 (L)Comment: Testing | 1.0 - 3.9 K/uL | EXTERNAL | | | Lymphocytes | performed at [facility], [address] | | LAB | | | | [address], | | | | | | [place] [address] | | | | + + + + + + | Absolute | 0.8Comment: Testing | 0 - 0.8 K/uL | EXTERNAL | | | Monocytes | performed at [facility], [address] | | LAB | | | | [address], | | | | | | [place] [address] | | | | + + + + + + | Absolute | 0.2Comment: Testing | 0 - 0.5 K/uL | EXTERNAL | | | Eosinophils | performed at [facility], [address] | | LAB | | | | [address], | | | | | | [place] [address] | | | | + + + + + + | Absolute | 0.1Comment: Testing | 0 - 0.1 K/uL | EXTERNAL | | | Basophils | performed at [facility], [address] | | LAB | | | | [address], | | | | | | [place] [address] | | | | + + + + + + | RBC | 1+Comment: ANISONORMAL | | EXTERNAL | | | Morphology | PLT MORPHTesting | | LAB | | | | performed at [facility], [address] | | | | | | [address], | | | | | | [place] [address] | | | | | | | [...] EXTERNAL | | | | performed at [facility], [address] | | LAB | | | | [address], | | | | | | [place] [address] | | | | + + + [...] [place] | | | | | | [address] | | | | + + + [...] | | | | | [place] [address] | | | | + + + + + + | K | 3.7Comment: Testing | 3.5 - 4.9 | EXTERNAL | | | | performed at [facility], [address] | mmol/L | LAB | | | | [address], | | | | | | [place] [address] | | | | + + + + + + | Cl | 105Comment: Testing | 99 - 109 mmol/L | EXTERNAL | | | | performed at [facility], [address] | | LAB | | | | [address], | | | | | | [place] [address] | | | | + + + + + + | CO2 | 25Comment: Testing | 23 - 32 mmol/L | EXTERNAL | | | | performed at [facility], [address] | | LAB | | | | [address], | | | | | | [place] [address] | | | | + + + + + + | Anion Gap | 7Comment: Testing | 5 - 20 mmol/L | EXTERNAL | | | | performed at [facility], [address] | | LAB | | | | [address], | | | | | | [place] [address] | | | | + + + + + + | Glucose, | 85Comment: Testing | 65 - 99 mg/dL | EXTERNAL | | | Fasting | performed at [facility], [address] | | LAB | | | | [address], | | | | | | [place] [address] | | | | + + + + + + | BUN | 8Comment: Testing | 8 - 25 mg/dL | EXTERNAL | | | | performed at [facility], [address] | | LAB | | | | [address], | | | | | | [place] [address] | | | | + + + + + + | Creatinine | 0.58Comment: Testing | 0.50 - 1.00 | EXTERNAL | | | | performed at [facility], [address] | mg/dL | LAB | | | | [address], | | | | | | [place] [address] | | | | + + + + + + | BUN/Creatin | 14Comment: Testing | | EXTERNAL | | | ine Ratio | performed at [facility], [address] | | LAB | | | | [address], | | | | | | [place] [address] | | | | + + + + + + | Calcium | 9.2Comment: Testing | 8.5 - 10.2 | EXTERNAL | | | | performed at [facility], [address] | mg/dL | LAB | | | | [address], | | | | | | [place] [address] | | | | + + + + + + | Protein, | 5.6 (L)Comment: Testing | 6.3 - 8.2 g/dL | EXTERNAL | | | Total | performed at [facility], [address] | | LAB | | | [address], | | | | | | [place] [address] | | | | + + + + + + | Albumin | 2.2 (L)Comment: Testing | 3.6 - 5.0 g/dL | EXTERNAL | | | | performed at [facility], [address] | | LAB | | | | [address], | | | | | | [place] [address] | | | | + + + + + + | Globulin | 3.4Comment: Testing | 1.3 - 4.9 g/dL | EXTERNAL | | | | performed at [facility], [address] | | LAB | | | | [address], | | | | | | [place] [address] | | | | + + + + + + | A/G Ratio | 0.6 (L)Comment: Testing | 1.0 - 2.4 | EXTERNAL | | | | performed at [facility], [address] | | LAB | | | | [address], | | | | | | [place] [address] | | | | + + + + + + | Bilirubin | 0.8Comment: Testing | 0.1 - 1.5 mg/dL | EXTERNAL | | | Total | performed at [facility], [address] | | LAB | | | | [address], | | | | | | [place], [place] [address] | | | | + + + + + + | ALP, | 119 (H)Comment: Testing | 35 - 115 U/L | EXTERNAL | | | External | performed at [facility], [address] | | LAB | | | | [address], | | | | | | [place], [place] [address] | | | | + + + + + + | AST | 36Comment: Testing | 10 - 45 U/L | EXTERNAL | | | | performed at [facility], [address] | | LAB | | | | [address], | | | | | | [place] [address] | | | | + + + + + + | ALT | 16Comment: Testing | 10 - 65 U/L | EXTERNAL | | | | performed at [facility], [address] | | LAB | | | | [address], | | | | | | [place] [address] | | | | + + + [...] | | | | | | at [facility], [address] | | | | | | [address], | | | | | | [place] [address] | | | | + + + [...] | | | | | performed at [facility] | | | | | | [facility] | | | | | | [address] | | | | + + + [...] EXTERNAL | | | | performed at [facility], [address] | | LAB | | | | [address], | | | | | | [place] [address] | | | | + + + [...] | | | B-12 | performed at [facility], [address] | pg/mL | LAB | | | | [address], | | | | | | [place] [address] | | | | + + + [...] | | | | | [place] [address] | | | | + + + + + + | TIBC | 146 (L)Comment: Testing | 260 - 490 ug/dL | EXTERNAL | | | | performed at [facility], [address] | | LAB | | | | [address], | | | | | | [place] [address] | | | | + + + + + + | Iron | 15Comment: Testing | 15 - 50 % | EXTERNAL | | | Saturation | performed at [facility], [address] | | LAB | | | | [address], | | | | | | [place] [address] | | | | + + + [...] EXTERNAL | | | | performed at [facility], [address] | | LAB | | | | [address], | | | | | | [place] [address] | | | | + + + + + + | Non- | 2.90 (L)Comment: Testing | 3.70 - 5.10 | EXTERNAL | | | Red Blood | performed at [facility], [address] | M/uL | LAB | | | Cells | [address], | | | | | Counted | [place] [address] | | | | + + + + + + | Hemoglobin | 9.2 (L)Comment: Testing | 11.3 - 15.5 | EXTERNAL | | | | performed at [facility], [address] | g/dL | LAB | | | | [address], | | | | | | [place] [address] | | | | + + + + + + | Hematocrit, | 27.3 (L)Comment: Testing | 34.0 - 46.0 % | EXTERNAL | | | POC | performed at [facility], [address] | | LAB | | | | [address], | | | | | | [place] [address] | | | | + + + + + + | MCV | 94.2Comment: Testing | 80.0 - 100.0 fl | EXTERNAL | | | | performed at [facility], [address] | | LAB | | | | [address], | | | | | | [place] [address] | | | | + + + + + + | MCH | 31.6Comment: Testing | 27.0 - 34.0 pg | EXTERNAL | | | | performed at [facility], [address] | | LAB | | | | [address], | | | | | | [place] [address] | | | | + + + + + + | MCHC | 33.5Comment: Testing | 32.0 - 35.5 | EXTERNAL | | | | performed at [facility], [address] | g/dL | LAB | | | | [address], | | | | | | [place] [address] | | | | + + + + + + | RDW-CV | 56.0 (H)Comment: Testing | 37 - 53 fl | EXTERNAL | | | | performed at [facility], [address] | | LAB | | | | [address], | | | | | | [place] [address] | | | | + + + + + + | Platelet | 83 (L)Comment: Testing | 150 - 400 K/uL | EXTERNAL | | | Count | performed at [facility], [address] | | LAB | | | Plasma | [address], | | | | | | [place] [address] | | | | + + + + + + | MPV | 8.7Comment: Testing | fl | EXTERNAL | | | | performed at [facility], [address] | | LAB | | | | [address], | | | | | | [place] [address] | | | | + + + + + + | Differentia | MANUALComment: Testing | | EXTERNAL | | | l Type | performed at [facility], [address] | | LAB | | | | [address], | | | | | | [place] [address] | | | | + + + + + + | Segmented | 63Comment: Testing | % | EXTERNAL | | | Neutrophils | performed at [facility], [address] | | LAB | | | Manual | [address], | | | | | | [place] [address] | | | | + + + + + + | Lymphocytes | 9Comment: Testing | % | EXTERNAL | | | Manual | performed at [facility], [address] | | LAB | | | | [address], | | | | | | [place] [address] | | | | + + + + + + | Monocytes | 21Comment: Testing | % | EXTERNAL | | | Manual | performed at [facility], [address] | | LAB | | | | [address], | | | | | | [place] [address] | | | | + + + + + + | Eosinophils | 7Comment: Testing | % | EXTERNAL | | | Manual | performed at [facility], [address] | | LAB | | | | [address], | | | | | | [place] [address] | | | | + + + + + + | Absolute | 1.9Comment: Testing | 1.9 - 7.4 K/uL | EXTERNAL | | | Neutrophils | performed at [facility], [address] | | LAB | | | | [address], | | | | | | [place] [address] | | | | + + + + + + | Absolute | 0.3 (L)Comment: Testing | 1.0 - 3.9 K/uL | EXTERNAL | | | Lymphocytes | performed at [facility], [address] | | LAB | | | | [address], | | | | | | [place] [address] | | | | + + + + + + | Absolute | 0.7Comment: Testing | 0 - 0.8 K/uL | EXTERNAL | | | Monocytes | performed at [facility], [address] | | LAB | | | | [address], | | | | | | [place] [address] | | | | + + + + + + | Absolute | 0.2Comment: Testing | 0 - 0.5 K/uL | EXTERNAL | | | Eosinophils | performed at [facility], [address] | | LAB | | | | [address], | | | | | | [place] [address] | | | | + + + + + + | RBC | RBC AND PLT MORPHOLOGY | | EXTERNAL | | | Morphology | APPEAR NORMALComment: | | LAB | | | | Testing performed at | | | | | | [facility], [address] | | | | | | [place] | | | | | | [id number] | | | | + + + [...] EXTERNAL | | | | performed at [facility], [address] | | LAB | | | | [facility], | | | | | | [place] [address] | | | | + + + [...] [place] | | | | | | [address] | | | | + + + [...] | | | External | performed at [facility], [address] | | LAB | | | | [address], | | | | | | [place] [address] | | | | + + + [...] | | | | | [place] [address] | | | | + + + + + + | K | 3.9Comment: Testing | 3.5 - 4.9 | EXTERNAL | | | | performed at [facility], [address] | mmol/L | LAB | | | | [address], | | | | | | [place] [address] | | | | + + + + + + | Cl | 107Comment: Testing | 99 - 109 mmol/L | EXTERNAL | | | | performed at [facility], [address] | | KAREEM | | | | [address], | | | | | | [place] [address] | | | | + + + + + + | CO2 | 23Comment: Testing | 23 - 32 mmol/L | EXTERNAL | | | | performed at [facility], [address] | | LAB | | | | [address], | | | | | | [place] [address] | | | | + + + + + + | Anion Gap | 7Comment: Testing | 5 - 20 mmol/L | EXTERNAL | | | | performed at [facility], [address] | | LAB | | | | [address], | | | | | | [place] [address] | | | | + + + + + + | Glucose, | 85Comment: Testing | 65 - 99 mg/dL | EXTERNAL | | | Fasting | performed at [facility], [address] | | LAB | | | | [address], | | | | | | [place] [address] | | | | + + + + + + | BUN | 6 (L)Comment: Testing | 8 - 25 mg/dL | EXTERNAL | | | | performed at [facility], [address] | | LAB | | | | [address], | | | | | | [place] [address] | | | | + + + + + + | Creatinine | 0.52Comment: Testing | 0.50 - 1.00 | EXTERNAL | | | | performed at [facility], [address] | mg/dL | LAB | | | | [address], | | | | | | [place] [address] | | | | + + + + + + | BUN/Creatin | 12Comment: Testing | | EXTERNAL | | | ine Ratio | performed at [facility], [address] | | LAB | | | | [address], | | | | | | [place] [address] | | | | + + + + + + | Calcium | 8.8Comment: Testing | 8.5 - 10.2 | EXTERNAL | | | | performed at [facility], [address] | mg/dL | LAB | | | | [address], | | | | | | [place] [address] | | | | + + + + + + | Protein, | 5.4 (L)Comment: Testing | 6.3 - 8.2 g/dL | EXTERNAL | | | Total | performed at [facility], [address] | | LAB | | | | [address], | | | | | | [place] [address] | | | | + + + + + + | Albumin | 2.1 (L)Comment: Testing | 3.6 - 5.0 g/dL | EXTERNAL | | | | performed at [facility], [address] | | LAB | | | | [address], | | | | | | [place] [address] | | | | + + + + + + | Globulin | 3.3Comment: Testing | 1.3 - 4.9 g/dL | EXTERNAL | | | | performed at [facility], [address] | | LAB | | | | [address], | | | | | | [place] [address] | | | | + + + + + + | A/G Ratio | 0.6 (L)Comment: Testing | 1.0 - 2.4 | EXTERNAL | | | | performed at [facility], [address] | | LAB | | | | [address], | | | | | | [place] [address] | | | | + + + + + + | Bilirubin | 0.7Comment: Testing | 0.1 - 1.5 mg/dL | EXTERNAL | | | Total | performed at [facility], [address] | | LAB | | | | [address], | | | | | | [place] [address] | | | | + + + + + + | ALP, | 109Comment: Testing | 35 - 115 U/L | EXTERNAL | | | External | performed at [facility], [address] | | LAB | | | | [address], | | | | | | [place] [address] | | | | + + + + + + | AST | 40Comment: Testing | 10 - 45 U/L | EXTERNAL | | | | performed at [facility], [address] | | LAB | | | | [address], | | | | | | [place] [address] | | | | + + + + + + | ALT | 15Comment: Testing | 10 - 65 U/L | EXTERNAL | | | | performed at [facility], [address] | | LAB | | | | [address], | | | | | | [place] [address] | | | | + + + [...] | | | | | | [place] [address] | | | | + + + [...] EXTERNAL | | | | performed at [facility];[address] | mmol/L | LAB | | | | [address];[place], [place] | | | | | | [address] | | | | + + + [...] EXTERNAL | | | | performed at [facility];[address] | | LAB | | | | [address];[place] | | | | | | [address] | | | | + + + [...] 17. The mitral valve is normal. 18. Ycuy-ov-ivkznveu | | | mitral regurgitation is present. [...] | | | valve is normal. 18. Xrvo-kk-kzhjgmnb mitral regurgitation is | | | present. [...] is normal. | | | Mitral Valve: Bfcw-pj-bjoixapk mitral regurgitation is present Mitral | | [...] 94.56 ml D-E Excursion: 1.83 cm E-F [place]: | | | 0.07 m/s EPSS: 1.09 [...] A Juan A: 0.65 m/s TV Dec [place]: | | | 4.00 m/s2 TV Dec Time: 240.34 ms TV E Juan A: 0.96 m/s TV | | | E/A Ratio: 1.47 Finish Off Operator: DERIK Authenticated by: Jared Vasquez | | [...] | regurgitation.17. The mitral valve is normal.18. Arqn-mz-ucgcficz mitral regurgitation | | is present.19. , [...] valve was not well visualized.26. Trace pulmonic kvoaegewpbmak79. There is no | | pericardial effusion.28. [...] Valve: The mitral valve is normal.Mitral Valve: Qrwx-xd-uzdgmbqk mitral regurgitation is | | presentMitral Valve: [...] (A-L): 62.26 ml/m2LAAs A2C: | | 27.87 [id number] A-L A2C: 118.11 mlLALs A2C: 5.58 cmLAAs A4C: 26.30 [id number] A-L | | A4C: 99.33 mlLALs A4C: [...] 94.56 mlD-E Excursion: | | 1.83 cmE-F [place]: 0.07 m/sEPSS: 1.09 cmHR: 85.87 BPMAV maxP.78 mmHgAV | | meanP.34 mmHgAV Vmax: 1.39 m/Uvaldo Vmean: 0.99 m/Uvaldo VTI: 29.75 cmAVA Vmax: | | 2.68 cm2AVA (VTI): 2.83 [id number] Dopp: 3.83 l/mdrp9QRFN Dopp: 6.86 l/minHR: 81.35 | | BPMLVOT [...] m/sTV A Juan A: 0.65 m/sTV Dec [place]: 4.00 m/s2TV Dec Time: | | 240.34 msTV E Juan A: 0.96 m/sTV E/A Ratio: 1.47 Finish Off Operator: Earlted by: Jared | | Pedro Gilbert [...] | | The mitral valve is normal.18. Jchi-ln-twvtnlmi mitral regurgitation is present.19. , | | [...] not | | well visualized.26. Trace pulmonic psiwlowmmxukk46. There is no pericardial effusion.28. | | [...] | |D-E Excursion: 1.83 cm | |E-F [place]: 0.07 m/s | |EPSS: 1.09 cm | [...] Juan A: 0.65 m/s | |TV Dec [place]: 4.00 m/s2 | |TV Dec Time: 240.34 ms | |TV E Juan A: 0.96 m/s | |TV E/A Ratio: 1.47 | | | |Finish Off Operator: DERIK | |Authenticated by: Jared Gilbert MD [...] The mitral valve is normal. | |18. Dxpt-te-ttrxflrj mitral regurgitation is present. | |19. , [...] EXTERNAL | | | | performed at [facility], [address] | | LAB | | | | [address], | | | | | | [place] [address] | | | | + + + + + + | Non- | 2.69 (L)Comment: Testing | 3.70 - 5.10 | EXTERNAL | | | Red Blood | performed at [facility], [address] | M/uL | LAB | | | Cells | [address], | | | | | Counted | [place] [address] | | | | + + + + + + | Hemoglobin | 8.3 (L)Comment: Testing | 11.3 - 15.5 | EXTERNAL | | | | performed at [facility], [address] | g/dL | LAB | | | | [address], | | | | | | [place] [address] | | | | + + + + + + | Hematocrit, | 25.4 (L)Comment: Testing | 34.0 - 46.0 % | EXTERNAL | | | POC | performed at , [address] | | LAB | | | | [address], | | | | | | [place] [address] | | | | + + + + + + | MCV | 94.4Comment: Testing | 80.0 - 100.0 fl | EXTERNAL | | | | performed at [facility], [address] | | LAB | | | | [address], | | | | | | [place] [address] | | | | + + + + + + | MCH | 30.9Comment: Testing | 27.0 - 34.0 pg | EXTERNAL | | | | performed at [facility], [address] | | LAB | | | | [address], | | | | | | [place] [address] | | | | + + + + + + | MCHC | 32.7Comment: Testing | 32.0 - 35.5 | EXTERNAL | | | | performed at [facility], [address] | g/dL | LAB | | | | [address], | | | | | | [place] [address] | | | | + + + + + + | RDW-CV | 57.3 (H)Comment: Testing | 37 - 53 fl | EXTERNAL | | | | performed at [facility], [address] | | LAB | | | | [address], | | | | | | [place] [address] | | | | + + + + + + | Platelet | 72 (L)Comment: Testing | 150 - 400 K/uL | EXTERNAL | | | Count | performed at [facility], [address] | | LAB | | | Plasma | [address], | | | | | | [place] [address] | | | | + + + + + + | MPV | 8.5Comment: Testing | fl | EXTERNAL | | | | performed at [facility], [address] | | LAB | | | | [address], | | | | | | [place] [address] | | | | + + + + + + | Differentia | MANUALComment: Testing | | EXTERNAL | | | l Type | performed at [facility], [address] | | LAB | | | | [address], | | | | | | [place] [address] | | | | + + + + + + | Segmented | 55Comment: Testing | % | EXTERNAL | | | Neutrophils | performed at [facility], [address] | | LAB | | | Manual | [address], | | | | | | [place] [address] | | | | + + + + + + | % Bands | 1Comment: Testing | % | EXTERNAL | | | | performed at [facility], [address] | | LAB | | | | [address], | | | | | | [place] [address] | | | | + + + + + + | Lymphocytes | 22Comment: Testing | % | EXTERNAL | | | Manual | performed at [facility], [address] | | LAB | | | | [address], | | | | | | [place], [place] [address] | | | | + + + + + + | Monocytes | 17Comment: Testing | % | EXTERNAL | | | Manual | performed at [facility], [address] | | LAB | | | | [address], | | | | | | [place] [address] | | | | + + + + + + | Eosinophils | 5Comment: Testing | % | EXTERNAL | | | Manual | performed at [facility], [address] | | LAB | | | | [address], | | | | | | [place] [address] | | | | + + + + + + | Absolute | 2.1Comment: Testing | 1.9 - 7.4 K/uL | EXTERNAL | | | Neutrophils | performed at [facility], [address] | | LAB | | | | [address], | | | | | | [place] [address] | | | | + + + + + + | Bands | 0.0Comment: Testing | 0 - 0.2 K/uL | EXTERNAL | | | Manual | performed at [facility], [address] | | LAB | | | | [address], | | | | | | [place] [address] | | | | + + + + + + | Absolute | 0.9 (L)Comment: Testing | 1.0 - 3.9 K/uL | EXTERNAL | | | Lymphocytes | performed at [facility], [address] | | LAB | | | | [address], | | | | | | [place] [address] | | | | + + + + + + | Absolute | 0.7Comment: Testing | 0 - 0.8 K/uL | EXTERNAL | | | Monocytes | performed at [facility], [address] | | LAB | | | | [address], | | | | | | [place] [address] | | | | + + + + + + | Absolute | 0.2Comment: Testing | 0 - 0.5 K/uL | EXTERNAL | | | Eosinophils | performed at [facility], [address] | | LAB | | | | [address], | | | | | | [place] [address] | | | | + + + + + + | Platelet | DECREASEDComment: | | EXTERNAL | | | Estimate | Testing performed at | | LAB | | | | [facility], [address] [facility] | | | | | | [place] | | | | | | [address] | | | | + + + + + + | RBC | NORMAL RBC MORPHComment: | | EXTERNAL | | | Morphology | NORMAL PLT MORPHTesting | | LAB | | | | performed at [facility], [address] | | | | | [address], | | | | | | [place] [address] | | | | + + + [...] EXTERNAL | | | | performed at [facility], [address] | | LAB | | | | [address], | | | | | | [place] [address] | | | | + + + [...] EXTERNAL | | | | performed at [facility], [address] | | LAB | | | | [address], | | | | | | [place] [address] | | | | + + + [...] | | | | | [place] [address] | | | | + + + + + + | K | 3.2 (L)Comment: Testing | 3.5 - 4.9 | EXTERNAL | | | | performed at [facility], [address] | mmol/L | LAB | | | | [address], | | | | | | [place] [address] | | | | + + + + + + | Cl | 107Comment: Testing | 99 - 109 mmol/L | EXTERNAL | | | | performed at [facility], [address] | | LAB | | | [address], | | | | | | [place] [address] | | | | + + + + + + | CO2 | 22 (L)Comment: Testing | 23 - 32 mmol/L | EXTERNAL | | | | performed at [facility], [address] | | LAB | | | | [address], | | | | | | [place] [address] | | | | + + + + + + | Anion Gap | 10Comment: Testing | 5 - 20 mmol/L | EXTERNAL | | | | performed at [facility], [address] | | LAB | | | | [address], | | | | | | [place] [address] | | | | + + + + + + | Glucose, | 113 (H)Comment: Testing | 65 - 99 mg/dL | EXTERNAL | | | Fasting | performed at [facility], [address] | | LAB | | | | [address], | | | | | | [place] [address] | | | | + + + + + + | BUN | 6 (L)Comment: Testing | 8 - 25 mg/dL | EXTERNAL | | | | performed at [facility], [address] | | LAB | | | | [address], | | | | | | [place] [address] | | | | + + + + + + | Creatinine | 0.59Comment: Testing | 0.50 - 1.00 | EXTERNAL | | | | performed at [facility], [address] | mg/dL | LAB | | | | [address], | | | | | | [place] [address] | | | | + + + + + + | BUN/Creatin | 10Comment: Testing | | EXTERNAL | | | ine Ratio | performed at [facility], [address] | | LAB | | | | [address], | | | | | | [place] [address] | | | | + + + + + + | Calcium | 8.0 (L)Comment: Testing | 8.5 - 10.2 | EXTERNAL | | | | performed at [facility], [address] | mg/dL | LAB | | | | [address], | | | | | | [place] [address] | | | | + + + + + + | Protein, | 5.3 (L)Comment: Testing | 6.3 - 8.2 g/dL | EXTERNAL | | | Total | performed at [facility], [address] | | LAB | | | | [address], | | | | | | [place] [address] | | | | + + + + + + | Albumin | 2.2 (L)Comment: Testing | 3.6 - 5.0 g/dL | EXTERNAL | | | | performed at [facility], [address] | | LAB | | | | [address], | | | | | | [place] [address] | | | | + + + + + + | Globulin | 3.1Comment: Testing | 1.3 - 4.9 g/dL | EXTERNAL | | | | performed at [facility], [address] | | LAB | | | | [address], | | | | | | [place] [address] | | | | + + + + + + | A/G Ratio | 0.7 (L)Comment: Testing | 1.0 - 2.4 | EXTERNAL | | | | performed at [facility], [address] | | LAB | | | | [address], | | | | | | [place] [address] | | | | + + + + + + | Bilirubin | 1.0Comment: Testing | 0.1 - 1.5 mg/dL | EXTERNAL | | | Total | performed at [facility], [address] | | LAB | | | | [address], | | | | | | [place] [address] | | | | + + + + + + | ALP, | 98Comment: Testing | 35 - 115 U/L | EXTERNAL | | | External | performed at [facility], [address] | | LAB | | | | [address], | | | | | | [place] [address] | | | | + + + + + + | AST | 41Comment: Testing | 10 - 45 U/L | EXTERNAL | | | | performed at [facility], [address] | | LAB | | | | [address], | | | | | | [place] [address] | | | | + + + + + + | ALT | 14Comment: Testing | 10 - 65 U/L | EXTERNAL | | | | performed at [facility], [address] | | LAB | | | | [address], | | | | | | [place] [address] | | | | + + + [...] | | | | | | at [facility], [address] | | | | | | [address], | | | | | | [place] [address] | | | | + + + [...] | EXTERNAL LAB | | performed at [facility];[address] [place] [address];[place] [address] 027 NAP1 BI | | | 027 NAP1 BI PRESUMPTIVE NEGATIVE | | | Detection of 027 NAP1 BI strains of C. difficile is presumptive and | | | for epidemiological purposes and not intended to guide or monitor | | | treatment for C. difficile infections. Testing performed at [facility];8 | | | [facility];[place] [address] | | + + + + +---------+ [...] EXTERNAL | | | | performed at [facility];[address] | mOsm/kg | LAB | | | | [address];[place] | | | | | | [address] | | | | + + + [...] | | | Urine | performed at [facility], [address] | | LAB | | | Random | [address], | | | | | | [place] [address] | | | | + + + [...] EXTERNAL | | | | performed at [facility];[address] | | LAB | | | | [address];[place] | | | | | | [address] | | | | + + + + + + | Non- | 3.04 (L)Comment: Testing | 3.70 - 5.10 | EXTERNAL | | | Red Blood | performed at [facility];[address] | M/uL | LAB | | | Cells | [address];[place] | | | | | Counted | [address] | | | | + + + + + + | Hemoglobin | 9.3 (L)Comment: Testing | 11.3 - 15.5 | EXTERNAL | | | | performed at [facility];[address] | g/dL | LAB | | | | [address];[place] | | | | | | [address] | | | | + + + + + + | Hematocrit, | 27.9 (L)Comment: Testing | 34.0 - 46.0 % | EXTERNAL | | | POC | performed at [facility];[address] | | LAB | | | | [address];[place] | | | | | | [address] | | | | + + + + + + | MCV | 91.8Comment: Testing | 80.0 - 100.0 fl | EXTERNAL | | | | performed at [facility];[address] | | LAB | | | | [address];[place] | | | | | | [address] | | | | + + + + + + | MCH | 30.5Comment: Testing | 27.0 - 34.0 pg | EXTERNAL | | | | performed at [facility];[address] | | LAB | | | | [address];[place] | | | | | | [address] | | | | + + + + + + | MCHC | 33.3Comment: Testing | 32.0 - 35.5 | EXTERNAL | | | | performed at [facility];888 | g/dL | LAB | | | | [address];[place] | | | | | | [address] | | | | + + + + + + | RDW-CV | 55.1 (H)Comment: Testing | 37 - 53 fl | EXTERNAL | | | | performed at [facility];[address] | | LAB | | | | [address];[place] | | | | | | [address] | | | | + + + + + + | Platelet | 70 (L)Comment: Testing | 150 - 400 K/uL | EXTERNAL | | | Count | performed at [facility];[address] | | LAB | | | Plasma | [address];[place] | | | | | | [address] | | | | + + + + + + | MPV | 8.5Comment: Testing | fl | EXTERNAL | | | | performed at [facility];[address] | | LAB | | | | [address];[place] | | | | | | [address] | | | | + + + + + + | Differentia | MANUALComment: Testing | | EXTERNAL | | | l Type | performed at [facility];[address] | | LAB | | | | [address];[place] | | | | | | [address] | | | | + + + + + + | Segmented | 70Comment: Testing | % | EXTERNAL | | | Neutrophils | performed at [facility];[address] | | LAB | | | Manual | [address];[place] | | | | | | [address] | | | | + + + + + + | % Bands | 5Comment: Testing | % | EXTERNAL | | | | performed at [facility];[address] | | LAB | | | | [address];[place] | | | | | | [address] | | | | + + + + + + | Lymphocytes | 10Comment: Testing | % | EXTERNAL | | | Manual | performed at [facility];[address] | | LAB | | | | [address];[place] | | | | | | [address] | | | | + + + + + + | Monocytes | 11Comment: Testing | % | EXTERNAL | | | Manual | performed at [facility];[address] | | LAB | | | | [address];[place] | | | | | | [address] | | | | + + + + + + | Eosinophils | 4Comment: Testing | % | EXTERNAL | | | Manual | performed at [facility];[address] | | LAB | | | | [address];[place] | | | | | | [address] | | | | + + + + + + | Absolute | 4.2Comment: Testing | 1.9 - 7.4 K/uL | EXTERNAL | | | Neutrophils | performed at [facility];[address] | | LAB | | | | [address];[place] | | | | | | [address] | | | | + + + + + + | Bands | 0.3 (H)Comment: Testing | 0 - 0.2 K/uL | EXTERNAL | | | Manual | performed at [facility];[address] | | LAB | | | | [address];[place] | | | | | | [address] | | | | + + + + + + | Absolute | 0.6 (L)Comment: Testing | 1.0 - 3.9 K/uL | EXTERNAL | | | Lymphocytes | performed at [facility];[address] | | LAB | | | | [address];[place] | | | | | | [address] | | | | + + + + + + | Absolute | 0.7Comment: Testing | 0 - 0.8 K/uL | EXTERNAL | | | Monocytes | performed at [facility];[address] | | LAB | | | | [address];[place] | | | | | | [address] | | | | + + + + + + | Absolute | 0.2Comment: Testing | 0 - 0.5 K/uL | EXTERNAL | | | Eosinophils | performed at [facility];[address] | | LAB | | | | [address];[place] | | | | | | [address] | | | | + + + + + + | Platelet | DECREASEDComment: | | EXTERNAL | | | Estimate | Testing performed at | | LAB | | | | [facility];[address];[place] [address] | | | | + + + + + + | RBC | NORMAL RBC MORPHComment: | | EXTERNAL | | | Morphology | Testing performed at | | LAB | | | | [facility];[address];[place] [address] | | | | + + + [...] EXTERNAL | | | | performed at [facility], [address] | | LAB | | | | [address], | | | | | | [place] [address] | | | | + + + [...] | | | Serum | performed at [facility];[address] | mOsm/kg | LAB | | | | [address];[place], [place] | | | | | | [address] | | | | + + + [...] EXTERNAL | | | | performed at [facility], [address] | | LAB | | | | [address], | | | | | | [place] [address] | | | | + + + [...] EXTERNAL | | | | performed at [facility];[address] | | LAB | | | | [address];[place] | | | | | | [address] | | | | + + + [...] | | | | | [place] [address] | | | | + + + + + + | K | 3.4 (L)Comment: Testing | 3.5 - 4.9 | EXTERNAL | | | | performed at [facility], [address] | mmol/L | LAB | | | [address], | | | | | | [place] [address] | | | | + + + + + + | Cl | 105Comment: Testing | 99 - 109 mmol/L | EXTERNAL | | | | performed at [facility], [address] | | LAB | | | | [address], | | | | | | [place] [address] | | | | + + + + + + | CO2 | 22 (L)Comment: Testing | 23 - 32 mmol/L | EXTERNAL | | | | performed at [facility], [address] | | LAB | | | | [address], | | | | | | [place] [address] | | | | + + + + + + | Anion Gap | 10Comment: Testing | 5 - 20 mmol/L | EXTERNAL | | | | performed at [facility], [address] | | LAB | | | | [address], | | | | | | [place] [address] | | | | + + + + + + | Glucose, | 95Comment: Testing | 65 - 99 mg/dL | EXTERNAL | | | Fasting | performed at [facility], [address] | | LAB | | | | [address], | | | | | | [place] [address] | | | | + + + + + + | BUN | 5 (L)Comment: Testing | 8 - 25 mg/dL | EXTERNAL | | | | performed at [facility], [address] | | LAB | | | | [address], | | | | | | [place] [address] | | | | + + + + + + | Creatinine | 0.57Comment: Testing | 0.50 - 1.00 | EXTERNAL | | | | performed at [facility], [address] | mg/dL | LAB | | | | [address], | | | | | | [place] [address] | | | | + + + + + + | BUN/Creatin | 9Comment: Testing | | EXTERNAL | | | ine Ratio | performed at [facility], [address] | | LAB | | | | [address], | | | | | | [place] [address] | | | | + + + + + + | Calcium | 8.0 (L)Comment: Testing | 8.5 - 10.2 | EXTERNAL | | | | performed at [facility], [address] | mg/dL | LAB | | | | [address], | | | | | | [place] [address] | | | | + + + + + + | Protein, | 5.6 (L)Comment: Testing | 6.3 - 8.2 g/dL | EXTERNAL | | | Total | performed at [facility], [address] | | LAB | | | | [address], | | | | | | [place] [address] | | | | + + + + + + | Albumin | 2.0 (L)Comment: Testing | 3.6 - 5.0 g/dL | EXTERNAL | | | | performed at [facility], [address] | | LAB | | | | [address], | | | | | | [place] [address] | | | | + + + + + + | Globulin | 3.6Comment: Testing | 1.3 - 4.9 g/dL | EXTERNAL | | | | performed at [facility], [address] | | LAB | | | | [address], | | | | | | [place] [address] | | | | + + + + + + | A/G Ratio | 0.6 (L)Comment: Testing | 1.0 - 2.4 | EXTERNAL | | | | performed at [facility], [address] | | LAB | | | | [address], | | | | | | [place], [place] [address] | | | | + + + + + + | Bilirubin | 1.3Comment: Testing | 0.1 - 1.5 mg/dL | EXTERNAL | | | Total | performed at [facility], [address] | | LAB | | | | [address], | | | | | | [place] [address] | | | | + + + + + + | ALP, | 107Comment: Testing | 35 - 115 U/L | EXTERNAL | | | External | performed at [facility], [address] | | LAB | | | | [address], | | | | | | [place] [address] | | | | + + + + + + | AST | 62 (H)Comment: Testing | 10 - 45 U/L | EXTERNAL | | | | performed at [facility], [address] | | LAB | | | | [address], | | | | | | [place] [address] | | | | + + + + + + | ALT | 19Comment: Testing | 10 - 65 U/L | EXTERNAL | | | | performed at [facility], [address] | | LAB | | | | [address], | | | | | | [place] [address] | | | | + + + [...] [address] | | | | | | [address], | | | | | | [place] [address] | | | | + + + [...] EXTERNAL | | | | performed at [facility] | | LAB | | | | [address];[place] | | | | | | [address] | | | | + + + [...] EXTERNAL | | | | performed at [facility];[address] | | LAB | | | [address];[place], [place] | | | | | | [address] | | | | + + + [...] | | | | | [place] [address] | | | | + + + + + + | Non- | 3.34 (L)Comment: Testing | 3.70 - 5.10 | EXTERNAL | | | Red Blood | performed at [facility], [address] | M/uL | LAB | | | Cells | [address], | | | | | Counted | [place] [address] | | | | + + + + + + | Hemoglobin | 10.4 (L)Comment: Testing | 11.3 - 15.5 | EXTERNAL | | | | performed at [facility], [address] | g/dL | LAB | | | | [address], | | | | | | [place] [address] | | | | + + + + + + | Hematocrit, | 31.3 (L)Comment: Testing | 34.0 - 46.0 % | EXTERNAL | | | POC | performed at [facility], [address] | | LAB | | | | [address], | | | | | | [place] [address] | | | | + + + + + + | MCV | 93.7Comment: Testing | 80.0 - 100.0 fl | EXTERNAL | | | | performed at [facility], [address] | | LAB | | | | [address], | | | | | | [place] [address] | | | | + + + + + + | MCH | 31.1Comment: Testing | 27.0 - 34.0 pg | EXTERNAL | | | | performed at [facility], [address] | | LAB | | | | [address], | | | | | | [place] [address] | | | | + + + + + + | MCHC | 33.2Comment: Testing | 32.0 - 35.5 | EXTERNAL | | | | performed at [facility], [address] | g/dL | LAB | | | | [address], | | | | | | [place] [address] | | | | + + + + + + | RDW-CV | 53.4 (H)Comment: Testing | 37 - 53 fl | EXTERNAL | | | | performed at [facility], [address] | | LAB | | | | [address], | | | | | | [place] [address] | | | | + + + + + + | Platelet | 67 (L)Comment: Testing | 150 - 400 K/uL | EXTERNAL | | | Count | performed at [facility], [address] | | LAB | | | Plasma | [address], | | | | | | [place] [address] | | | | + + + + + + | MPV | 8.5Comment: Testing | fl | EXTERNAL | | | | performed at [facility], [address] | | LAB | | | | [address], | | | | | | [place] [address] | | | | + + + + + + | Differentia | AUTOMATEDComment: | | EXTERNAL | | | l Type | Testing performed at | | LAB | | | | [facility], [address] | | | | | | [place] | | | | | | [address] | | | | + + + + + + | % Segmented | 70.1Comment: Testing | % | EXTERNAL | | | | performed at [facility], [address] | | LAB | | | Neutrophils | [address], | | | | | | [place] [address] | | | | + + + + + + | % | 9.7Comment: Testing | % | EXTERNAL | | | Lymphocytes | performed at [facility], [address] | | LAB | | | | [address], | | | | | | [place] [address] | | | | + + + + + + | % Monocytes | 16.7Comment: Testing | % | EXTERNAL | | | | performed at [facility], [address] | | LAB | | | | [address], | | | | | | [place] [address] | | | | + + + + + + | % | 2.8Comment: Testing | % | EXTERNAL | | | Eosinophils | performed at [facility], [address] | | LAB | | | | [address], | | | | | | [place] [address] | | | | + + + + + + | % Basophils | 0.7Comment: Testing | % | EXTERNAL | | | | performed at [facility], [address] | | LAB | | | | [address], | | | | | | [place] [address] | | | | + + + + + + | Absolute | 3.3Comment: Testing | 1.9 - 7.4 K/uL | EXTERNAL | | | Segmented | performed at [facility], [address] | | LAB | | | Neutrophils | [address], | | | | | | [place] [address] | | | | + + + + + + | Absolute | 0.5 (L)Comment: Testing | 1.0 - 3.9 K/uL | EXTERNAL | | | Lymphocytes | performed at [facility], [address] | | LAB | | | | [address], | | | | | | [place] [address] | | | | + + + + + + | Absolute | 0.8Comment: Testing | 0 - 0.8 K/uL | EXTERNAL | | | Monocytes | performed at [facility], [address] | | LAB | | | | [address], | | | | | | [place] [address] | | | | + + + + + + | Absolute | 0.1Comment: Testing | 0 - 0.5 K/uL | EXTERNAL | | | Eosinophils | performed at [facility], [address] | | LAB | | | | [address], | | | | | | [place] [address] | | | | + + + + + + | Absolute | 0.0Comment: Testing | 0 - 0.1 K/uL | EXTERNAL | | | Basophils | performed at [facility], [address] | | LAB | | | | [address], | | | | | | [place] [address] | | | | + + + [...] | | | | | | [place] [address] | | | | + + + [...] EXTERNAL | | | | performed at [facility], [address] | | LAB | | | | [address], | | | | | | [place] [address] | | | | + + + [...] EXTERNAL | | | | performed at [facility];[address] | | LAB | | | | [address];[place] | | | | | | [address] | | | | + + + [...] | | | | | [place] [address] | | | | + + + + + + | K | 3.9Comment: Testing | 3.5 - 4.9 | EXTERNAL | | | | performed at [facility], [address] | mmol/L | LAB | | | | [address], | | | | | | [place] [address] | | | | + + + + + + | Cl | 103Comment: Testing | 99 - 109 mmol/L | EXTERNAL | | | | performed at [facility], [address] | | LAB | | | | [address], | | | | | | [place] [address] | | | | + + + + + + | CO2 | 22 (L)Comment: Testing | 23 - 32 mmol/L | EXTERNAL | | | | performed at [facility], [address] | | LAB | | | | [address], | | | | | | [place] [address] | | | | + + + + + + | Anion Gap | 8Comment: Testing | 5 - 20 mmol/L | EXTERNAL | | | | performed at [facility], [address] | | LAB | | | | [address], | | | | | | [place] [address] | | | | + + + + + + | Glucose, | 98Comment: Testing | 65 - 99 mg/dL | EXTERNAL | | | Fasting | performed at [facility], [address] | | LAB | | | | [address], | | | | | | [place], [place] [address] | | | | + + + + + + | BUN | 5 (L)Comment: Testing | 8 - 25 mg/dL | EXTERNAL | | | | performed at [facility], [address] | | LAB | | | | [address], | | | | | | [place] [address] | | | | + + + + + + | Creatinine | 0.51Comment: Testing | 0.50 - 1.00 | EXTERNAL | | | | performed at [facility], [address] | mg/dL | LAB | | | | [address], | | | | | | [place] [address] | | | | + + + + + + | BUN/Creatin | 10Comment: Testing | | EXTERNAL | | | ine Ratio | performed at [facility], [address] | | LAB | | | | [facility], | | | | | | [place] [address] | | | | + + + + + + | Calcium | 7.9 (L)Comment: Testing | 8.5 - 10.2 | EXTERNAL | | | | performed at [facility], [address] | mg/dL | LAB | | | | [address], | | | | | | [place] [address] | | | | + + + [...] | | | | | [place] [address] | | | | + + + [...] EXTERNAL | | | | performed at [facility];[address] | mmol/L | LAB | | | | [address];[place] | | | | | | [address] | | | | + + + [...] EXTERNAL | | | | performed at [facility] | | LAB | | | | [address] [facility];[place], [place] | | | | | | [address] | | | | + + + [...] EXTERNAL | | | | performed at [facility];[address] | | LAB | | | | [address];[place] | | | | | | [address] | | | | + + + + + + | Non- | 2.89 (L)Comment: Testing | 3.70 - 5.10 | EXTERNAL | | | Red Blood | performed at [facility];[address] | M/uL | LAB | | | Cells | [address];[place] | | | | | Counted | [address] | | | | + + + + + + | Hemoglobin | 8.9 (L)Comment: Testing | 11.3 - 15.5 | EXTERNAL | | | | performed at [facility];[address] | g/dL | LAB | | | | [address];[place] | | | | | | [address] | | | | + + + + + + | Hematocrit, | 26.3 (L)Comment: Testing | 34.0 - 46.0 % | EXTERNAL | | | POC | performed at [facility];[address] | | LAB | | | | [address];[place] | | | | | | [address] | | | | + + + + + + | MCV | 90.9Comment: Testing | 80.0 - 100.0 fl | EXTERNAL | | | | performed at [facility];[address] | | LAB | | | | [address];[place] | | | | | | [address] | | | | + + + + + + | MCH | 30.7Comment: Testing | 27.0 - 34.0 pg | EXTERNAL | | | | performed at [facility];[address] | | LAB | | | | [address];[place] | | | | | | [address] | | | | + + + + + + | MCHC | 33.8Comment: Testing | 32.0 - 35.5 | EXTERNAL | | | | performed at [facility];[address] | g/dL | LAB | | | | [address];[place] | | | | | | [address] | | | | + + + + + + | RDW-CV | 52.5Comment: Testing | 37 - 53 fl | EXTERNAL | | | | performed at [facility];[address] | | LAB | | | | [address];[place] | | | | | | [address] | | | | + + + + + + | Platelet | 49 (LL)Comment: PLT | 150 - 400 K/uL | EXTERNAL | | | Count | PHONED TO FREDDY Chen | | LAB | | | Plasma | AT 0805 BY [facility] BACK | | | | | | RESULTS VERIFIEDTesting | | | | | | performed at [facility];[address] | | | | | | [address];[place] | | | | | | [address] | | | | + + + + + + | MPV | 8.3Comment: Testing | fl | EXTERNAL | | | | performed at [facility];[address] | | LAB | | | | [address];[place] | | | | | | [address] | | | | + + + + + + | Differentia | AUTOMATEDComment: | | EXTERNAL | | | l Type | Testing performed at | | LAB | | | | [facility];[address] | | | | | [address];[place] [address] | | | | + + + + + + | % Segmented | 59.0Comment: Testing | % | EXTERNAL | | | | performed at [facility];[address] | | LAB | | | Neutrophils | [address];[place] | | | | | | [address] | | | | + + + + + + | % | 16.7Comment: Testing | % | EXTERNAL | | | Lymphocytes | performed at [facility];[address] | | LAB | | | | [address];[place] | | | | | | [address] | | | | + + + + + + | % Monocytes | 21.8Comment: Testing | % | EXTERNAL | | | | performed at [facility];[address] | | LAB | | | | [address];[place] | | | | | | [address] | | | | + + + + + + | % | 1.4Comment: Testing | % | EXTERNAL | | | Eosinophils | performed at [facility];[address] | | LAB | | | | [address];[place] | | | | | | [address] | | | | + + + + + + | % Basophils | 1.1Comment: Testing | % | EXTERNAL | | | | performed at [facility];[address] | | LAB | | | | [address];[place] | | | | | | [address] | | | | + + + + + + | Absolute | 2.2Comment: Testing | 1.9 - 7.4 K/uL | EXTERNAL | | | Segmented | performed at [facility];[address] | | LAB | | | Neutrophils | [address];[place] | | | | | | [address] | | | | + + + + + + | Absolute | 0.6 (L)Comment: Testing | 1.0 - 3.9 K/uL | EXTERNAL | | | Lymphocytes | performed at [facility];[address] | | LAB | | | | [address];[place] | | | | | | [address] | | | | + + + + + + | Absolute | 0.8Comment: Testing | 0 - 0.8 K/uL | EXTERNAL | | | Monocytes | performed at [facility];[address] | | LAB | | | | [address];[place] | | | | | | [address] | | | | + + + + + + | Absolute | 0.1Comment: Testing | 0 - 0.5 K/uL | EXTERNAL | | | Eosinophils | performed at [facility];[address] | | LAB | | | | [address];[place] | | | | | | [address] | | | | + + + + + + | Absolute | 0.0Comment: Testing | 0 - 0.1 K/uL | EXTERNAL | | | Basophils | performed at [facility];[address] | | LAB | | | | [address];[place], [place] | | | | | | [address] | | | | + + + [...] EXTERNAL | | | | performed at [facility];[address] | uIU/mL | LAB | | | | [address];[place], [place] | | | | | | [address] | | | | + + + [...] EXTERNAL | | | | performed at [facility];[address] | | LAB | | | | [address];[place], [place] | | | | | | [address] | | | | + + + [...] EXTERNAL | | | | performed at [facility];[address] | | LAB | | | | [address] [facility];[place] | | | | | | [address] | | | | + + + [...] LAB | | | | performed at [facility];[address] | | | | | | [address];[place] | | | | | | [address] | | | | + + + [...] + + | Hemoglobin | 4.6Comment: The [place] | 4.0 - 6.0 % | EXTERNAL [...] | | | | | performed at [facility], [address] | | | | | | [address], | | | | | | [place] [address] | | | | + + + [...] | | | | | performed at [facility], [address] | | | | | | [facility], | | | | | | [place] [address] | | | | + + + [...] | | | Direct | performed at [facility];[address] | | LAB | | | | [address];[place], [place] | | | | | | [address] | | | | + + + [...] EXTERNAL | | | | performed at [facility];[address] | mmol/L | LAB | | | | [address];[place] | | | | | | [address] | | | | + + + + + + | K | 3.2 (L)Comment: Testing | 3.5 - 4.9 | EXTERNAL | | | | performed at [facility];[address] | mmol/L | LAB | | | | [address];[place] | | | | | | [address] | | | | + + + + + + | Cl | 106Comment: Testing | 99 - 109 mmol/L | EXTERNAL | | | | performed at [facility];[address] | | LAB | | | | [address];[place] | | | | | | [address] | | | | + + + + + + | CO2 | 25Comment: Testing | 23 - 32 mmol/L | EXTERNAL | | | | performed at [facility];[address] | | LAB | | | | [address];[place] | | | | | | [address] | | | | + + + + + + | Anion Gap | 10Comment: Testing | 5 - 20 mmol/L | EXTERNAL | | | | performed at [facility];[address] | | LAB | | | | [address];[place] | | | | | | [address] | | | | + + + + + + | Glucose, | 77Comment: Testing | 65 - 99 mg/dL | EXTERNAL | | | Fasting | performed at [facility];[address] | | LAB | | | | [address];[place] | | | | | | [address] | | | | + + + + + + | BUN | 5 (L)Comment: Testing | 8 - 25 mg/dL | EXTERNAL | | | | performed at [facility];[address] | | LAB | | | | [address];[place] | | | | | | [address] | | | | + + + + + + | Creatinine | 0.60Comment: Testing | 0.50 - 1.00 | EXTERNAL | | | | performed at [facility];[address] | mg/dL | LAB | | | | [address];[place] | | | | | | [address] | | | | + + + + + + | BUN/Creatin | 8Comment: Testing | | EXTERNAL | | | ine Ratio | performed at [facility];[address] | | LAB | | | | [address];[place] | | | | | | [address] | | | | + + + + + + | Calcium | 7.2 (L)Comment: Testing | 8.5 - 10.2 | EXTERNAL | | | | performed at [facility];[address] | mg/dL | LAB | | | | [address];[place] | | | | | | [address] | | | | + + + + + + | Protein, | 5.9 (L)Comment: Testing | 6.3 - 8.2 g/dL | EXTERNAL | | | Total | performed at [facility];[address] | | LAB | | | | [address];[place] | | | | | | [address] | | | | + + + + + + | Albumin | 1.8 (L)Comment: Testing | 3.6 - 5.0 g/dL | EXTERNAL | | | | performed at [facility];[address] | | LAB | | | | [address];[place] | | | | | | [address] | | | | + + + + + + | Globulin | 4.1Comment: Testing | 1.3 - 4.9 g/dL | EXTERNAL | | | | performed at [facility];[address] | | LAB | | | | [address];[place] | | | | | | [address] | | | | + + + + + + | A/G Ratio | 0.5 (L)Comment: Testing | 1.0 - 2.4 | EXTERNAL | | | | performed at [facility];[address] | | LAB | | | | [address];[place] | | | | | | [address] | | | | + + + + + + | Bilirubin | 1.2Comment: Testing | 0.1 - 1.5 mg/dL | EXTERNAL | | | Total | performed at [facility];[address] | | LAB | | | | [address];[place] | | | | | | [address] | | | | + + + + + + | ALP, | 135 (H)Comment: Testing | 35 - 115 U/L | EXTERNAL | | | External | performed at [facility];[address] | | LAB | | | | [address];[place] | | | | | | [address] | | | | + + + + + + | AST | 84 (H)Comment: Testing | 10 - 45 U/L | EXTERNAL | | | | performed at [facility];[address] | | LAB | | | | [address];[place] | | | | | | [address] | | | | + + + + + + | ALT | 21Comment: Testing | 10 - 65 U/L | EXTERNAL | | | | performed at [facility];[address] | | LAB | | | | [address];[place] | | | | | | [address] | | | | + + + [...] | | | | | | at [facility];[address] [place] [address] | | | | | | [facility];[place] [address] | | | | + + + [...] 3:55AM Referring | | | Provider Line: [phone] ID: [id number] | | + + + [...] noted in the bilateral | | | service consultant spaces. | | + + + + [...] coils are again noted in the bilateral service consultant spaces. IMPRESSION: No acute | | intracranial process. RADIA Electronically signed by Rosalinda Comer MD on Feb 07 | | 2013 3:55AM Referring Provider Line: [phone] ID: [id number] | | | |Extraaxial Spaces: [...] coils are again noted in the bilateral service consultant spaces. | | | |IMPRESSION: | | | | | |No acute intracranial process. | | | |RADIA | | | | Electronically signed by Rosalinda Comer MD on Feb 07 2014 3:55AM Referring Provider Line: [phone] ID: [id number] | + + Urinalysis, Microscopic Only (02/06/2014 11:36 PM PDT) + + + + + + | Component | Value | Ref Range | Performed | Pathologist | | | | | At | Signature | + + + + + + | WBC, UA | 11-15Comment: Testing | 0 - 5 /hpf | EXTERNAL | | | | performed at [facility];[address] | | LAB | | | | [address];[place] | | | | | | [address] | | | | + + + + + + | RBC, UA | 16-25Comment: Testing | 0 - 5 /hpf | EXTERNAL | | | | performed at [facility];[address] | | LAB | | | | [address];[place] | | | | | | [address] | | | | + + + + + + | Epithelial | 26-50Comment: Testing | /lpf | EXTERNAL | | | Cells | performed at [facility];[address] | | LAB | | | | [address];[place] | | | | | | [address] | | | | + + + + + + | Bacteria, | 4+ (A)Comment: Testing | | EXTERNAL | | | UA | performed at [facility];[address] | | LAB | | | | [address];[place] | | | | | | [address] | | | | + + + + + + | Mucus, | 2+Comment: Testing | | EXTERNAL | | | Urine | performed at [facility];[address] | | LAB | | | | [address];[place], [place] | | | | | | [address] | | | | + + + [...] EXTERNAL | | | | performed at [facility];[address] | | LAB | | | | [address];[place] | | | | | | [address] | | | | + + + + + + | Clarity, | CLOUDYComment: Testing | | EXTERNAL | | | Urine | performed at [facility];[address] | | LAB | | | | [address];[place] | | | | | | [address] | | | | + + + + + + | Specific | 1.025Comment: Testing | 1.001 - 1.035 | EXTERNAL | | | [place], | performed at [facility];[address] | | LAB | | | Urine | [address];[place] | | | | | | [address] | | | | + + + + + + | Leukocyte | NEGATIVEComment: Testing | | EXTERNAL | | | Esterase, | performed at [facility];[address] | | LAB | | | Urine | [address];[place] | | | | | | [address] | | | | + + + + + + | Nitrite, | NEGATIVEComment: Testing | | EXTERNAL | | | Urine | performed at [facility];[address] | | LAB | | | | [address];[place] | | | | | | [address] | | | | + + + + + + | Urobilinoge | 0.2Comment: Testing | mg/dL | EXTERNAL | | | n, Urine | performed at [facility];[address] | | LAB | | | | [address];[place] | | | | | | [address] | | | | + + + + + + | Protein, | 100 (A)Comment: Testing | mg/dL | EXTERNAL | | | Urine | performed at [facility];[address] | | LAB | | | | [address];[place] | | | | | | [address] | | | | + + + + + + | pH, Urine | 7.0Comment: Testing | 4.6 - 8.0 | EXTERNAL | | | | performed at [facility];[address] | | LAB | | | | [address];[place] | | | | | | [address] | | | | + + + + + + | Blood, | LARGE (A)Comment: | | EXTERNAL | | | Urine | Testing performed at | | LAB | | | | [facility];[address];[place] [address] | | | | + + + + + + | Ketones | TRACE (A)Comment: | mg/dL | EXTERNAL | | | | Testing performed at | | LAB | | | | [facility];[address] | [address];[place] [address] | | | | + + + + + + | Bilirubin, | SMALL (A)Comment: | | EXTERNAL | | | Urine | Testing performed at | | LAB | | | | [facility];[address];[place] [address] | | | | + + + + + + | Glucose, | NEGATIVEComment: Testing | mg/dL | EXTERNAL | | | Urine | performed at [facility];[address] | | LAB | | | | [address];[place] | | | | | | [address] | | | | + + + [...] | Testing performed | | | at [facility], [address] [place] [address] | | | Suscepibility for - ESCHERICHIA [...] EXTERNAL | | | | performed at [facility];[address] | | LAB | | | | [address];[place], [place] | | | | | | [address] | | | | + + + [...] RAC | | | Testing performed at [facility];[address] | | [address];[place] [address] CULTURE | | | NO GROWTH | | | Testing performed at [facility], [address] [facility], [place], [place] | | | [address] | | + + + + +---------+ [...] LAC | | | Testing performed at [facility];[address] | | | [facility];[place] [address] CULTURE | | | NO GROWTH | | | Testing performed at [facility], [address] [facility], [place], [place] | | | [address] | | + + + + +---------+ [...]
--- OUTSIDE RECORDS SUMMARY | ~2020-01-23 | XMS | Encounter Summary ---
Demographics + + + | Address | [address] | | | [place] [address] | + + + | Home Phone [...] + + + | Author | [facility] | | | and [place] | + + + | Organization | [facility] | | | and [place] | + + + | Address | Unknown | + + + | Phone | Unavailable | + + + Support + + + + + | Name | Relationship | Address | Phone | + + + + + | Joanne Pham | ECON | [address] | | | | | [place] | | | | | [address] | | + + + + + | Viktor Berry | EDDIE | Unknown | | + + + + + | Edd Gill | ECON | Unknown | | + + + + + | Conner Barber | ECON | Unknown | | + + + + + Care Team Providers + +------+ + | Care International Tax Manager Name | Role | Phone | [...] 2016 | | CONVERSION 888 | [place] [address] | | | | | [place] | [place] | | | | | [place] | [address] | | | | | [address] | | | | | | [phone] | | | +--------+ + + + [...] | maxP.35 mmHg TR Vmax: 2.84 m/s Drywall Metal Stud Worker: EMILY | | | Authenticated by: Josee Tinocosanta rosa Report Date/Time: 03-07-2017 | | | 20:49:19 | | + + + + + | Procedure Note | + + | Edgardo Dean Conversion - 11/28/2018 6:34 PM PDT Patient Name: Jose Miguel BERRY of | | : 1970 Performing Physician: Josee | | Alejandrinasanta rosa INDICATIONS------ | | -----Bacteremia, r/o endocarditis CONCLUSIONS [...] cmLVPWd: | | 1.19 cmLVOT Area: 3.57 [id number] Diam: 2.13 cm%FS: 14.01 %EF(Teich): 30.44 | [...] mlLAESV Index (A-L): 47.14 ml/m2LAAs A2C: 22.70 [id number] A-L A2C: 81.19 | | mlLALs A2C: 5.38 cmLAAs A4C: 22.20 id4PMYVI A-L A4C: 70.14 mlLALs A4C: 5.21 | | cmRAAs: 11.60 tf9GPBCB A-L: 25.98 mlRAESV MOD: 25.22 mlRALs: 4.40 cmTAPSE: | | 2.53 cmAV maxP.09 mmHgAV meanP.09 mmHgAV Vmax: 1.42 m/Uvaldo Vmean: 0.95 | | m/Uvaldo VTI: 28.76 cmAVA Vmax: 2.80 cm2AVA (VTI): 2.57 [id number] Vmax: 0.00 | | cm2/m2AVAI (VTI): 0.00 cm2/m2LVOT maxP.99 mmHgLVOT meanP.61 mmHgLVSI Dopp: | | 42.64 ml/m2LVSV Dopp: 74.20 mlLVOT Vmax: 1.11 m/sLVOT Vmean: 0.76 m/sLVOT VTI: | | 20.74 cmMV A Juan A: 0.72 m/sMV DecT: 208.92 msMV E Juan A: 0.75 m/sMV E/A Ratio: | | 1.03MV PHT: 60.58 msMVA By PHT: 3.63 iz7Lackim e': 0.05 m/sSeptal E/e': | | 12.78Lateral e': 0.07 m/sLateral E/e': 10.30RAP: 5 mmHgRVSP: 37.35 mmHgTR maxPG: | | 32.35 mmHgTR Vmax: 2.84 m/s Drywall Metal Stud Worker: DBSAuthenticated by: Josee | | [facility] CenterraReport Date/Time: 03-07-2017 20:49:19 IMPRESSION: 1. The left [...] |TR Vmax: 2.84 m/s | | | |Drywall Metal Stud Worker: DBS | |Authenticated by: Josee Little | [...]
--- OUTSIDE RECORDS SUMMARY | ~2020-01-23 | XMS | Encounter Summary ---
Demographics + + + | Address | [address] | | | [place] [address] | + + + | Home Phone | | + + + | Preferred Language | Unknown | + + + | Marital Status | Single | + + + | Pentecostal Affiliation | [phone] | + + + [...] + | Joanne Pham | ECON | [address] | | | | | [place] | | | | | [address] | | + + + + + | Viktor Son | EDDIE | Unknown | | + + + + + | Edd Gill | ECON | Unknown | | + + + + + | Conner Barber | ECON | Unknown | | + + + + + Care Team Providers + +------+ + | Care Hardwood Finisher Name | Role | Phone | + +------+ + PCP | Unavailable | + +------+ + Encounter Details +--------+ + + + + | Date | Type | Department | Care Team | Description | +--------+ + + + + | 03/23/ | Hospital | [facility] | Alyce Dumont | Seizure ([facility]); UTI | | 2012 - | Encounter | MEDICAL [facility]ENTER | [address] | (lower urinary tract | | | | CLINICAL DECISION | [address] | infection); Seizure | | 03/28/ | | [address] | [place] [address] | disorder, secondary | | 2012 | | [place], [place] | [phone] | ([facility]); Alcohol | | | | [phone] | | dependence ([facility]); | | | | [phone] | | Fever; Alcohol | | | [...] Date of Service: 04/10/13 1001 Status: Signed Commercial Relief Driver: Precious Miller MD (Physician) [facility] Service: Hospitalist Note Discharge Summary Date of [...] and felt she did not require any mcfp anti-convulsants. She had evidence of a UTI an d possible bronchitis while in the hospital and she was treated with anti-biotics. She had evidence of alcohol associated anemia and thrombocytopenia and hyponatremia, all of which re mained stable during her stay. She had extensive work with social services specialist while in the hospital. Unfortunately, due to h er non compliance with her outpatient regimen and continued alcohol abuse she was not eligib le for inpatient alcohol rehab (please see social services specialist note.) She is being discharged i n stable condition but is at high risk for readmission due to her continued alcohol abuse an d underlying liver disease. Last CBC: WBC Date Value Range Status 03/28/2013 6.1 3.8 - 11.0 K/uL Final Testing performed at [address] [address] RBC Date Value Range Status 03/28/2013 2.70* 3.70 - 5.10 M/uL Final Testing performed at [address] [address] HGB Date Value Range Status 03/28/2013 9.3* 11.3 - 15.5 g/dL Final Testing performed at [address] [address] HCT Date Value Range Status 03/28/2013 26.5* 34.0 - 46.0 % Final Testing performed at [address] [address] MCV Date Value Range Status 03/28/2013 98.1 80.0 - 100.0 fl Final Testing performed at [address] [address] MCH Date Value Range Status 03/28/2013 34.4* 27.0 - 34.0 pg Final Testing performed at [address] [address] MCHC Date Value Range Status 03/28/2013 35.0 32.0 - 35.5 g/dL Final Testing performed at [address] [address] RDW SD Date Value Range Status 03/28/2013 51.2 37 - 53 fl Final Testing performed at [address] [address] PLT Date Value Range Status 03/28/2013 111* 150 - 400 K/uL Final Testing performed at [address] [address] MPV Date Value Range Status 03/28/2013 8.8 Final Testing performed at [address] [address] NEUTROPHILS ABS Date Value Range Status 03/28/2013 [...] the prescriptions that you need to pick pulling machine tender. You may get these medications from any [...] 03/28/131848 Date of Service: 03/28/131848 Status: Signed Commercial Relief Driver: Paulina Palomares RN (Registered Nurse) Pt discharged [...] (none) Author Type: Registered Nurse Filed: 03/28/13 7107 Date of Service: 03/28/13 1102 Status: Addendum Commercial Relief Driver: Alice Strong RN (Registered Nurse) Related Notes: Original Note by Alice Strong RN (Registered Nurse) filed at 03/28/13 125 1 [facility] [address] [place] [address] This worker [facility] a [facility] . Per h er, pt is not eligible for services thru [facility], as she has been noncompliant with her a ppointments over the last year. [facility] pt needs to be referred to the above listed rehab center. You need to present to the assessment center on a Sunday or , bring proof of insurance, your iliamna affiliation proof, photo id and proof on income. The assessment c enter is located at [address] [facility] in [facility], their phone number is [phone] 1. . I met the pt this [...] w brother. 1529-Rec a call from Liset-at [facility]- let her know, pt will be gi shawn information to follow up At [facility] in [place], she will follow up with the the [...] Date of Service: 03/28/13 1019 Status: Signed Commercial Relief Driver: Precious Miller MD (Physician) [facility] Service: Hospitalist Progress Note Hospital Day: LOS: 5 days SUBJECTIVE Patient Summary: 42 y/o female transferred from [place] with alcohol w ithdrawal seizures. Seen by Dr. Chandra, no indication for seizure medications. She has now been off valium for withdrawal x 24 hours. She has bronchitis and is being switched from Ro cephin to keflex today. The goal is to get her into an alcohol rehab program in [place]. Sh e is okay for discharge today, [...] Service: Neurology Author Type: Physician Filed: 03/28/13 6227 Date of Service: 03/28/13813 Status: Signed Commercial Relief Driver: Yareli Chandra MD (Physician) Subjective: Patient seen [...] status post bilateral coil embolization of the beating machine operator space. EEG: Unremarkable, mild generalized nonspecific [...] with IR, bilateral coil embolization of the beating machine operator space could be done to reinaldo [...] Date of Service: 03/28/13 0803 Status: Signed Commercial Relief Driver: Felecia George PT (Physical Therapist) 03/28/13 0803 PT Last Visit PT Received On 03/28/13 Reason for Treatment (sepsis from ETOH withdrawal) Requires PT Follow Up PT tech Follow up PT Only? No PT Eval/Reassessment Date 03/28/13 Assistance Required 1 person Analysis Tester Needed No Requires PT Follow Up PT [...] ETOH rehab facility. Prior Function Level of [place] Independent with functional mobility;Independent with ADLs (does [...] Eval/Reassessment Date 03/28/13 Assistance Required 1 person Analysis Tester Needed No Precautions Other Precautions fall precautions [...] 0333 Date of Service: 03/28/13324 Status: Signed Commercial Relief Driver: Сергей Watson RN (Registered Nurse) Pt A&O x2-3, VSS, pt c/o of pain and given IV morphine x3. Pt did not sleep much during sh ift. No acute changes from pm assessment, q2h checks performed, will continue to monitor. Сергей Watson RN 03/28/2013 3:33 AM onver miriam Transaction, Provider Unknown - 03/27/2013 3:57 PM PST Case Management by Alice Strong RN at 03/27/13 1355 Author: Alice Strong RN Service: (none) Author Type: Registered Nurse Filed: 03/27/13 6336 Date of Service: 03/27/13 0931 Status: Signed Commercial Relief Driver: Alice Strong RN (Registered Nurse) DCP- This worker rec a call from [facility] . She d irects me to call the [facility] to explore alcohol rehab- called [facility] at [phone]- [phone] and was directed to Tomas Bobo who referred me to JOHN out of [facility] , because pt is [place] Medicaid. Their # is - I called them and they transferr ed me to left a vm, req a callback. CM to follow. oPrecious guerrero MD - 03/27/2013 12:20 PM PSTFormatting of this note might be different from th e original. Progress Notes by Precious Miller MD at 03/27/13 1220 Author: Precious Miller MD Service: (none) Author Type: Physician Filed: 03/27/13 3579 Date of Service: 03/27/13 1220 Status: Signed Commercial Relief Driver: Precious Miller MD (Physician) 03/27/2013 Principal Problem: [...] post b ilateral coil embolization of the beating machine operator space. 03/25/2013 1. Lobulated appearance of [...] 03/26/132219 Date of Service: 03/26/132218 Status: Signed Commercial Relief Driver: Basilio Ferrara RN (Registered Nurse) Went to [...] 03/26/132014 Date of Service: 03/26/132002 Status: Signed Commercial Relief Driver: Celso Goldberg MD (Physician) [facility] Service: Hospitalist Progress Note Hospital Day: LOS: 3 days Post-Op Day: * No surgery found * SUBJECTIVE Patient Summary: Transferred from [facility] after seizures from alcohol with [...] episode before while she was sober from [facility] but never been treated for seizure, Scheduled [...] Management by Alice Strong RN at 03/26/13 4869 Author: Alice Strong RN Service: (none) Author Type: Registered Nurse Filed: 03/27/1317 Date of Service: 03/26/131648 Status: Addendum Commercial Relief Driver: Alice Strong RN (Registered Nurse) Related Notes: [...] her w transpor tation. Pt has a [facility] RN- Liset Virk, who comes to the hospital and review w Dr Dixie Celestin and myself- the [facility]-will look for associated ETOH programs [...] 03/26/13606 Date of Service: 03/26/13605 Status: Signed Commercial Relief Driver: Basilio Ferrara RN (Registered Nurse) Patient resting [...] 03/25/131826 Date of Service: 03/25/131825 Status: Signed Commercial Relief Driver: Efra Roca RN (Registered Nurse) Pt started [...] Date of Service: 03/25/13 150 Status: Signed Commercial Relief Driver: Wilber Santana MD (Physician) [facility] Service: Hospitalist Progress Note Hospital Day: LOS: 2 days Post-Op Day: * No surgery found * SUBJECTIVE Patient Summary: Transferred from [facility] after seizures from alcohol with [...] Date of Service: 03/25/13 1345 Status: Signed Commercial Relief Driver: Alice Strong RN (Registered Nurse) DCP- Reviewed [...] Date of Service: 03/25/13 115 Status: Signed Commercial Relief Driver: Savannah Clarke RN (Registered Nurse) Notified Lead RN patient's PIV is due to be changed today per policy. Instructed Lead RN t o have Primary RN call PICC RN if USGPIV is needed Thank you. Wilber Montes i, MD - 03/24/2013 3:48 PM PST Progress Notes by iWlber Santana MD at 03/24/13 4625 Author: Wilber Santana MD Service: (none) Author Type: Physician Filed: 03/24/13 1612 Date of Service: 03/24/13 1548 Status: Signed Commercial Relief Driver: Wilber Santana MD (Physician) [facility] Service: Hospitalist Progress Note Hospital Day: LOS: 1 day Post-Op Day: * No surgery found * SUBJECTIVE Patient Summary: Transferred from [facility] after seizures from alcohol with [...] for anti seizure medication s. Alcoholism. On CIWI protocol. No sign of alcohol withdrawal. Pneumonia. [...] Notes by Lynda Gutiérrez RN at 03/24/13 6927 Author: Lynda Gutiérrez RN Service: (none) Author Type: Registered Nurse Filed: 03/24/13 7162 Date of Service: 03/24/13 0642 Status: Addendum Commercial Relief Driver: Lynda Gutiérrez RN (Registered Nurse) Related Notes: [...] 03/23/131940 Date of Service: 03/23/131939 Status: Signed Commercial Relief Driver: Alcira Epstein RN (Registered Nurse) Report given to 3OP RN, pt transferred with all of belongings. Wilber Montes i, MD - 03/23/2013 3:32 PM PST Progress Notes by Wilber Santana MD at 03/23/131531 Author: Wilber Santana MD Service: Hospitalist Author Type: Physician Filed: 03/23/13 153 Date of Service: 03/23/131531 Status: Signed Commercial Relief Driver: Wilber Santana MD (Physician) Patient seen and [...] Results Procedure Component Value Units Date/Time TSH [[id number]] (Abnormal) Collected:03/23/13 1010 Specimen Information:Blood Updated:03/23/13 1309 TSH 6.48 (H) uIU/mL Ammonia [[id number]] (Abnormal) Collected:03/23/13 1010 Specimen Information:Blood Updated:03/23/13 1102 AMMONIA 42 (H) umol/L Protime-INR [[id number]] Collected:03/23/13 1010 Specimen Information:Blood Updated:03/23/13 1052 INR 1.4 Influenza Swab [[id number]] Collected:03/23/13617 Specimen Information:Nasopharyngeal / Nasopharyngeal Culture Updated:03/23/13640 Specimen Description NASOPHARYNGEAL RESULT Result: Negative for Influenzae Type A and Type B antigen by ICA RESULT Result: Testing performed at [facility];[address] [place] [address];[place] [address] REPORT STATUS 03/23/2013 FINAL Comprehensive metabolic panel [[id number]] (Abnormal) Collected:03/23/13609 Specimen Information:Blood Updated:03/23/13639 SODIUM 138 [...] 19 U/L EGFR >60 mL/min/1.73m2 Ethanol Level [[id number]] Collected:03/23/13609 Specimen Information:Blood Updated:03/23/13639 ALCOHOL,ETHYL <3 mg/dL CBC w Auto Diff [[id number]] (Abnormal) Collected:03/23/13609 Specimen Information:Blood Updated:03/23/13619 WBC 8.8 [...] 03/23/135 Date of Service: 03/23/131042 Status: Signed Commercial Relief Driver: Alcira Epstein RN (Registered Nurse) Pt awake [...] 0850 Date of Service: 03/23/13847 Status: Signed Commercial Relief Driver: Alcira Epstein RN (Registered Nurse) Pt awake, [...] 03/23/13822 Date of Service: 03/23/13729 Status: Signed Commercial Relief Driver: Cristy Pereira RN (Registered Nurse) Pt in [...] 03/23/13643 Date of Service: 03/23/13643 Status: Signed Commercial Relief Driver: Taryn Sauer RPH (Pharmacist) Clinical Pharmacy Note: Renal Monitoring Shaila Huy 42 y.o. female Ht Readings from Last 1 Encounters: 07/29/11 1.702 m (5' 7") Wt Readings from Last 1 Encounters: 07/29/11 60.782 kg (134 lb) CREATININE Date Value Range Status 03/23/2013 0.60 0.50 - 1.00 mg/dL Final Testing performed at [facility];[address] [place] [address];[place] [address] Patient's GFR is > 60 ml/min Pharmacy [...] 03/23/1339 Date of Service: 03/23/13629 Status: Signed Commercial Relief Driver: Alyce Dumont MD (Physician) [facility] Service: Hospitalist Admission History & Physical Date of Admission: 03/23/2013 Requesting Physician: Antoinettei , Emergency Department Reason for Admission: Seizures and Sepsis History Obtained From: patient CHIEF COMPLAINT: seizures HISTORY OF PRESENT ILLNESS The patient is a 42 y.o. female with significant past medical history. Transferred from [facility] after seizures from alcohol withdrawal [...] or urinary symptoms but positive UA in [facility]. Still tachycardia but no seizure activities. Last ETOH 1.5 day ago. REVIEW OF SYSTEMS Negative except for pertinent items noted in HPI. Past Medical History Diagnosis Date Hemorrhage of gastrointestinal tract, unspecified Liver disease Hypertension Anemia Past Surgical History Procedure Date Esophagogastroduodenoscopy 07/30/2011 Procedure: ESOPHAGOGASTRODUODENOSCOPY; Surgeon: Mitchell Stewart IV, MD; Location: [facility]; Service: Gastroenterology; Laterality: N/A; anesthesia assist if available since may be difficult to sedate Hx of tracheostomy Immunizations: Influenza: Ordered Pneumoccocal: Not indicated Allergies Allergen Reactions Ciprofloxacin Other (See Comments) Pt. Unable to recall, this information came from [facility] record Ibuprofen Other (See Comments) Pt. Unable to recall, this information came from [facility] record (Not in a hospital admission) History [...] 0813 Date of Service: 03/27/1359 Status: Signed Commercial Relief Driver: Yareli Chandra MD (Physician) I was asked [...] daily). She also admitted to previous s [facility]. She reports that her seizures [...] ESOPHAGOGASTRODUODENOSCOPY; Surgeon: Mitchell Stewart IV, MD; Location: [facility]; Service: Gastroenterology; Laterality: N/A; anesthesia assist if available since may be difficult to sedate Hx of tracheostomy Allergy: Allergies Allergen Reactions Ciprofloxacin Other (See Comments) Pt. Unable to recall, this information came from [facility] record Ibuprofen Other (See Comments) Pt. Unable to recall, this information came from [facility] record Medications: Home medications: Prior to Admission [...] status post bilateral coil embolization of the beating machine operator space. EEG: Unremarkable, mild generalized nonspecific [...] to quit. Bilateral coil embolization of the beating machine operator space, not sure yet from indication. [...] Ibanez PA-C Service: (none) Author Type: Physician Meat Team Lead - Certified Filed: 03/23/13 0645 Date of Service: 03/23/13520 Status: Signed Commercial Relief Driver: Aimee Ibanez PA-C (Physician Meat Team Lead - Certified) Related Notes: Cosigned by Shaun Lee MD (Physician) filed at 03/23/13 0713 Procedures [facility] Department of Emergency Medicine History of Present Illness Patient Identification Shaila Son is a 42 y.o. female. Patient information was obtained from EMS personnel. History/Exam limitations: mental status. Patient presented to the Emergency Department by: [facility] Chief Complaint Chief Complaint Patient presents with Seizures Transfer from [facility] with seizures and ETOH withdrawl. Withdrawal [...] ESOPHAGOGASTRODUODENOSCOPY; Surgeon: Mitchell Stewart IV, MD; Location: [facility]; Service: Gastroenterology; Laterality: N/A; [...] to recall, this information came from [facility] record Ibuprofen Other (See Comments) Pt. Unable to recall, this information came from [facility] record History Social History Marital Status: Single [...] 0530 pt presents as a transfer from [facility] for alcohol abuse, seizures from withdrawal a nd fever with UTI. She has rec'd 5 liters of Fluids, vanco and zosyn. Dr Lee rec'd report f rom [facility], he is aware of pt, he rec admission. I will request a bed now. Pt is able to tell me she is in a hospital and that she arrived via ambulance. She can tell me its almost Sunday, that its March and year 2012. She vaguely remembers having a seizure at home but not much else. Pt was seen earlier at [facility] for abd pain, CT at that earlier visit indicated chronic c hangusha,sent home on Tramadol and returned with a hx of having 2 seizures at home. She hasn't had any ETOH in 36 hours. After discussing case with Dr Lee who took the initial transfer call, based off pts, fever , vitals signs, and seizures, she qualified for ICU status at [facility], and Dr Lee told ER staff her sx wouldn't qualify for our ICU status. He agreed on transfer. Her ER discharge d x from [facility] are: sepsis, ETOH withdrawal/seziures, chronic liver failure. [...] Value Ref Range Date/Time Comprehensive metabolic panel [[id number]] (Abnormal) Collected:03/23/13609 Order Status:Completed Updated:03/23/13639 Specimen Information:Blood [...] U/L EGFR >60 >60 mL/min/1.73m2 Ethanol Level [[id number]] Collected:03/23/13609 Order Status:Completed Updated:03/23/13639 Specimen Information:Blood ALCOHOL,ETHYL <3 <10 mg/dL CBC w Auto Diff [[id number]] (Abnormal) Collected:03/23/13609 Order Status:Completed Updated:03/23/13619 Specimen Information:Blood [...] 03/23/1313 Date of Service: 03/23/13520 Status: Signed Commercial Relief Driver: Shaun Lee MD (Physician) Related Notes: Related Note by Aimee Ibanez PA-C (Physician Meat Team Lead - Certified) filed a t 03/23/13 0645 [...] 03/23/13518 Date of Service: 03/23/13511 Status: Signed Commercial Relief Driver: Matt Benavides RN (Registered Nurse) Pt. Is a transfer from [facility] in [place], [place]. Per report she c/o abd pain [...] ic" seizure, lasting about 1 minute, at [facility] and has a lip laceration on her [...] 03/23/13440 Date of Service: 03/23/13440 Status: Signed Commercial Relief Driver: Matt Benavides RN (Registered Nurse) Bed:08
Expected date:
Expected time:
Means of arrival:
Comments:
onver miriam Transjacob, Provider Unknown - 03/23/2013 4:36 AM PST ED Notes by Jose Carlos Anderson RN at 03/23/13435 Author: Jose Carlos Anderson RN Service: (none) Author Type: Registered Nurse Filed: 05/03/13150 Date of Service: 03/23/13435 Status: Signed Commercial Relief Driver: Jose Carlos Anderson RN (Registered Nurse) Pt is a transfer from [facility]. Pt had seizures at home x2 as well as one seiz ure at [facility]. Pt has hx cirrhosis, ETOH abuse, varices, pancreatitis, and reese ia. [facility] Jose Carlos Anderson RN 05/03/13150 docume nted [...] status post bilateral coil embolization of the beating machine operator space. | | | | | [...] | | through the cranial vertex. FINDINGS: Counter Checker imaging demonstrates | | | normal craniocervical alignment. There is no prevertebral soft tissue | | | swelling. Coil embolization is noted along the bilateral beating machine operator | | | space. There is [...] SON years FemaleCT | | HEAD WO [id number]/18/2013 7:48 PM INDICATION: Alcohol abuse, fever, seizure | | COMPARISON: None TECHNIQUE: CT scan of the head without contrast. 5-mm axial | | noncontrast images were acquired from the foramen magnum through the cranial vertex. | | FINDINGS: Counter Checker imaging demonstrates normal craniocervical alignment. There is no | | prevertebral soft tissue swelling. Coil embolization is noted along the bilateral | | beating machine operator space. There is no uncal or [...] bilateral coil embolization of the | | beating machine operator space. | |There is no uncal [...] status post bilateral coil embolization of the beating machine operator space . | | | | [...] PM PDT SHAILA SON1971US ABDOMEN | | [id number]/25/2013 5:55 PM HISTORY: Liver cirrhosis, abdominal pain [...] | Procedure Note | + + | Jermanie, Rad Conversion - 11/29/2018 3:48 PM PDT [...] ICA | | | Testing performed at [facility];[address] [facility];[place] [address] | | | REPORT STATUS 03/23/2013 FINAL [...]
--- OUTSIDE RECORDS SUMMARY | ~2020-01-23 | XMS | Encounter Summary ---
Demographics + + + | Address | [address] | | | [place] [address] | + + + | Home Phone | | + + + | Preferred Language | Unknown | + + + | Marital Status | Single | + + + | Scientology Affiliation | [id number] | + + + | Race | or | + + + | Ethnic Group | Not or | + + + Author + + + | Author | [facility] | | | and [place] | + + + | Organization | [facility] | | | and [place] | + + + | Address | Unknown | + + + | Phone | Unavailable | + + + Support + + + + + | Name | Relationship | Address | Phone | + + + + + | Joanne Pham | ECON | [address] | | | | | [place] | | | | | [address] | | + + + + + | Viktor Son | EDDIE | Unknown | | + + + + + | Edd Gill | ECON | Unknown | | + + + + + | Conner Barber | ECON | Unknown | | + + + + + Care Team Providers + +------+ + | Care Bilingual Operator Name | Role | Phone | [...] + + | 09/07/ | Surgery | [facility] | Robel Taylor | DI: CT | | 2016 | | MED CTR IR INTRA OP | MD Char [address] [place] [address] | | | | | [address] | [place] | | | | | [place] | [address] | | | | | [address] | | | | | | [phone] | | | +--------+---------+ + + + [...] ascites and hyponatremia who was transferred from [facility]. She was found to have severe [...] hemodynamically stable and is being discharged to [facility] with continued aldactone, lasix, blood pressure control for portal hypertension and lactulos e. Follow-up at [facility] with Juan Holguin. This patient's pathology report will be forwarded from Dr. Luis Miguel Bucio (pathologist in [place]). Code Status: Full Code Disposition: [facility] Discharge Condition: fair Follow-up Information Follow up with Trixie Rose PA-C In 1 week. Specialty: Internal Medicine Contact information: [address] [place] [address] Discharge Medications [...] by: Jose Carlos Albert MD, 09/10/2015 11:16 [facility] documented in this encounter Medications at [...] Albert MD - 09/09/2015 5:[address] [facility] Hospitalist Progress Note Shaila [...] Product Code RBC Leukocytes Reduced UNIT # [id number] UNIT ABO O UNIT RH POS CROSSMATCH [...] outlined above. Jose Carlos Albert 09/09/2015 17:37 [facility] Portions of this chart may have been created with [employer] voice recognition software. Occasi onal wrong-word or sound-alike substitutions may have occurred due to the inherent gallardo itations of voice recognition software. Please read the chart carefully and recognize, using context, where these substitutions have occurred Jose Carlos Garcia MD - 09/08/2015 5:[address] [facility] Hospitalist Progress Note Shaila [...] outlined above. Jose Carlos Albert 09/08/2015 17:35 [facility] Portions of this chart may have been created with [employer] voice recognition software. Occasi onal wrong-word or sound-alike substitutions may have occurred due to the inherent gallardo itations of voice recognition software. Please read the chart carefully and recognize, using context, where these substitutions have occurred itchetana, Jose Carlos Chen MD - 09/07/2015 5:[address] [facility] Hospitalist Progress Note Shaila [...] Product Code RBC Leukocytes Reduced UNIT # [id number] UNIT ABO O UNIT RH POS CROSSMATCH [...] A p reliminary report was sent by [employer] ([employer]) on 09/06/2015 at 7:03 PM with no [...] outlined above. Jose Carlos Albert 09/07/2015 17:42 [facility] Portions of this chart may have been created with [employer] voice recognition software. Occasi onal wrong-word or sound-alike substitutions may have occurred due to the inherent gallardo itations of voice recognition software. Please read the chart carefully and recognize, using context, where these substitutions have occurred arneel, Grant Pardo MD - 09/06/2015 2:[address] [facility] Hospitalist Progress Note Shaila [...] noting at the time of discharge from [facility] she was gi shawn 5 additional [...] as outlined above. Grant Lomas 09/06/2015 14:33 [facility] Portions of this chart may have been created with [employer] voice recognition software. Occasi onal wrong-word or sound-alike substitutions may have occurred due to the inherent gallardo itations of voice recognition software. Please read the chart carefully and recognize, using context, where these substitutions have occurred arGrant shaikh MD - 0 09/05/2015 2:[address] [facility] Hospitalist Progress Note Shaila [...] as such I do want to volume intake clinician someone in with her crit of 22 without active bleeding I'm going to give a unit of blood laura griffin and potentially a second unit tomorrow a.m. ending on her response to transfusion. T his will volume intake clinician and hopefully improve her functional status in [...] as outlined above. Grant Lomas 09/06/2015 14:46 [facility] Portions of this chart may have been created with [employer] voice recognition software. Occasi onal wrong-word or sound-alike substitutions may have occurred due to the inherent gallardo itations of voice recognition software. Please read the chart carefully and recognize, using context, where these substitutions have occurred arker, Grant Pardo MD - 0 09/04/2015 2:[address] [facility] Hospitalist Progress Note Shaila [...] as outlined above. Grant Lomas 09/06/2015 14:58 [facility] Portions of this chart may have been created with [employer] voice recognition software. Occasi onal wrong-word or [...] Mace MD - 09/03/2015 8:[address] [facility] Hospitalist Progress Note Shaila [...] and smear. Adames awaiting the records from [facility] to determine the type of treatment [...] sam was made to accommodate the 8 Tristanian paracentesis trocar catheter, which were advanced into [...] as outlined above. Grant Lomas 09/03/2015 8:48 [facility] Portions of this chart may have been created with [employer] voice recognition software. Occasi onal wrong-word or [...] mi ght be different from the original. [facility] PMG Hospitalist Progress Note Shaila [...] as outlined above. Grant Lomas 09/02/2015 9:45 [facility] Portions of this chart may have been created with [employer] voice recognition software. Occasi onal wrong-word or sound-alike substitutions may have occurred due to the inherent gallardo itations of voice recognition software. Please read the chart carefully and recognize, using context, where these substitutions have occurred documented in this [facility] H&P Notes Robel Taylor MD - 09/08/2015 [...] by: Robel Taylor MD, 09/08/2015 11:59 [facility] signed by Roebl Taylor MD at 0 09/08/2015 12:00 PM PDTParker, Grant Pardo MD - 09/01/2015 6:43 PM PDTFormatting of this note mi ght be different from the original. Patient: Shaila Son : 1970: Age: 45 y.o. MedRec: [id number] Admission date: 09/01/2015 Hospital day #: 0 Physician author: Grant Lomas MD HISTORY AND PHYSICAL CHIEF COMPLAINT: Patient transferred to this facility from [facility] without emergency room rec ords or [...] of 4 L paracentesis in 03/29/2015 at [facility] History of seizures at the patient's order from [facility] being divalproex DR 150 mg 3 [...] at the time of discharge 04/01/2015 from [facility] was tete ing Cefpodoxime 200 mg [...] CKTOTAL No results for input(s): PHART, PO2ART, WDT2CJV, TSK0DJP, BEART, [id number] in the last 168 h ours. Xray [...] signed by: Grant Lomas MD 09/01/2015 18:43 [facility] Portions of this chart may have been created with [employer] voice recognition software. Occasi onal wrong-word or sound-alike substitutions may have occurred due to the inherent gallardo itations of voice recognition software. Please read the chart carefully and recognize, using context, where these substitutions have occurred documented in this enc ounter Miscellaneous Notes Plan of Care - Janeen Srivastava MSW - 09/10/2015 11:49 AM PDTPatient to transfer [facility]. This CM faxed over the SNF transfer orders, PASRR, and RXs. All other documentation is placed in manila folder and in ghost chart. This CM spoke with Irena who states that she will look over the orders and call this write r back with a slat pickler time. Electronically signed by: HANNAH Contreras 09/10/2015 11:52 Spoke with Josephine who reported a slat pickler time of 1300. This Cm let [...] might be differe nt from the original. CARE HOME FACILITY TRANSFER ORDERS Patient Name: Shaila Son Patient : 1970 Gender: female Date of Admission: 09/01/2015 Date of Discharge: 09/10/2015 Admitting Provider: Marialuisa Roman MD Discharging Provider: Jose Carlos Albert MD Consultants: none PCP: Juan Holguin [facility] transferring to: [facility] Provider after transfer: Per SNF CODE STATUS: [x] Attempt CPR [] Do not resuscitate If patient is pulseless and not breathing, RN/CALLISTHENICS INSTRUCTOR may pronounce . Advanced Directives included: [] [...] for this patient. Diet: [] As tolerated ECONOMICS ANALYST may upgrade or downgrade diet as condition [...] Whole [] Thin Liquids [] Cut-up [] [employer] Thick [] Advanced Chopped [] Honey Thickened [] Chopped [] Advanced Ground [] 1:1 feedings [] Ground/Pureed [] Other: Tube Feedings: [] PEG [] GT [] JT [] NGT [] Formula type: (Measurement Coordinator may change/substitute if indicated). [] Continuous [...] [x] OT Evaluation & Management for: [] ECONOMICS ANALYST Evaluation &Management for: [] Other: Wound/Skin Care: [...] Intermediate Additional Orders/Instructions: Physician's signature: 09/10/2015 11:13 [facility] USE ONLY: [] Admitting orders verbally reviewed with Admitting Physician, modified where appropriate, and approved. Verbal Order from Date: Time: _ RN name: RN signature: [] Admitting orders reviewed, modified where appropriate, and approved. Physician's signature:____Jose Carlos Albert Date: _Time: lan of Care - [facility] Steve panda RN - 09/10/2015 8:06 AM [...] weight-bearing History of Presenting Problem: Transfer from [facility], no records or labs available. P t unable to provide history. Reportedly stopped medications x 1 month ago. Hx 4L paracente sis @ [facility] 03/23; hx seizures, chronic anemia. Now- [...] for technique w/ IV pole Level of Lapwai : contact guard assist, verbal cues required Assistive Device: (IV stand) Distance (feet): 300 Transfers Using IV stand for support Sit-Stand, Level of Lapwai: supervision required Stand-Sit, Level of Lapwai: supervision required [id number], Assistive Device: none Safety Issues: balance decreased during turns, step length decreased, loses balance backwar d Impairments: impaired balance, strength decreased, decreased flexibility, postural control impaired, muscle tone abnormal Bed Mobility Assistive Device: bed rails Supine to Sit, Level of Lapwai: minimum assist (75% patient effort) Sit to Supine, Level of Lapwai: modified independence Impairments: impaired balance, strength decreased [...] Activity Type: supine to sit/sit to supine Lapwai Level: independent Assistive Device: none Time to Achieve: 5 - 7 days Goal Status: progressing toward goal, revised Transfer Training Goal, Activity Type: sit to stand/stand to sit [place]wai Level: modified independence Assistive Device: 2 wheeled walker (FWW) Time to Achieve: 5 - 7 days Goal Status: progressing toward goal, revised Gait Training Goal, Lapwai Level: modified independence Assistive Device: 2 wheeled [...] FWW with SBA Ambulated an est 250'. POTATO CHIP COOKER MACHINE bro ught a different IV pole to provide safer ambulating with pole to/from bathroom. Pt report s and nursing confirms that pt is Independent in her room. Education: Safety with functional mobility Treatment Provided: ADL and functional mobility training. Patient Status/Goals Reflects last filed data of patient status; may be from multiple contributors. ADLs Grooming, Level of Lapwai: supervision required Assistive Device: none Grooming Assess/Train, [...] therapies. She stood at the sink to slitter cut off operator her te eth with supervision, Pt fatigued [...] overall everything was oka y. Patient is Jain and I wished her good health. Spiritual Intervention: Patient welcomed cleat blanker visit and I wished her good health. Spiritual Outcomes: Patient thank me for the visit. Spiritual Goals/Follow up: Control Panel Builder will continue to provide ongoing emotional/spirtiual support for patient as requested. lan of Car Juan Moore, WET FINISHER WOOL - 09/07/2015 12:49 PM PDTProblem: Patient Care [...] weight-bearing History of Presenting Problem: Transfer from [facility], no records or labs available. P t unable to provide history. Reportedly stopped medications x 1 month ago. Hx 4L paracente sis @ [facility] 03/23; hx seizures, chronic anemia. Now- [...] on L during initial contact. Level of Lapwai : supervision required Assistive Device: 2 wheeled walker (FWW) Distance (feet): 120 Transfers Sit-Stand, Level of Lapwai: supervision required Stand-Sit, Level of Lapwai: supervision required [id number]-Mrzrg-Blh, Assistive Device: 2 wheeled walker (FWW) Toilet, Assistive Device: none (recommend FWW as pt is slightly unsteady on her feet) Safety Issues: balance decreased during turns, step length decreased, loses balance backwar d Impairments: muscle tone abnormal, strength decreased, impaired balance, coordination impai red Bed Mobility Assistive Device: bed rails Supine to Sit, Level of Lapwai: modified independence Sit to Supine, Level of Lapwai: independent Impairments: impaired balance, strength decreased Balance [...] in lower legs and ankles STG GOALS Lapwai Level: independent Assistive Device: none Time to Achieve: 2 days Goal Status: new [place]wai Level: modified independence Assistive Device: 2 wheeled walker (FWW) Time to Achieve: 2 days Goal Status: new Gait Training Goal, Lapwai Level: modified independence Assistive Device: 2 wheeled [...] PTA, 09/07/2015 12:45 lan of Care - [facility] Paulina gonzalez OT - 09/07/2015 12:32 [...] from multiple contributors. ADLs LB, Level of Lapwai: supervision required, set up required LB Dressing [...] is medially stable for discharge. Cathie with [facility] does request for the doctor to include an order for Ativan PO and IM o n her SNF discharge order for possible Seizure activity. Otherwise no concerns with taking h er. Dr Lomas notified of the above information. Electronically signed by: Yumiko Anderson RN 09/06/2015 10:01 [facility] notified patient will be medially stable for discharge tomorrow, Sunday , 09/07/2015. Patient also notified of the above information. Electronically signed by: Yumiko Anderson RN 09/06/2015 11:40 Updated doctor progress notes faxed to [facility] per her request, fax # . Electronically [...] is a 45 y.o. who transferred from [facility], no records or labs available. Pt [...] stairs at home. Transfers Sit-Stand, Level of Lapwai: supervision required Toilet, Assistive Device: none (recommend FWW as pt is slightly unsteady on her feet) Safety Issues: balance decreased during turns, step length decreased, loses balance backwar d Impairments: muscle tone abnormal, strength decreased, impaired balance, coordination impai red Bed Mobility Assistive Device: bed rails Supine to Sit, Level of Lapwai: modified independence Sit to Supine, Level of Lapwai: independent Impairments: impaired balance, strength decreased Balance [...] in lower legs and ankles STG GOALS Lapwai Level: independent Assistive Device: none Time to Achieve: 2 days Goal Status: new [place]wai Level: modified independence Assistive Device: 2 wheeled walker (FWW) Time to Achieve: 2 days Goal Status: new Gait Training Goal, Lapwai Level: modified independence Assistive Device: 2 wheeled [...] Arcos OT, 09/05/2015 15:20 lan of [facility] - Yumiko Quevedo RN - 09/05/2015 1:33 PM PDTDischarge planning: This CM discussed with patient the option of going to a SNF for physical therapy Rehab. She agrees and would like to go to [facility] as she is from [place] and family and friends could visit. If [facility] does not have any beds available, she is open to [facility] [place]. Referral has been faxed to [facility]. Yumiko Anderson RN 09/05/2015 12:23 lan of [facility] Steve Salamanca RN - 09/05/2015 5:09 [...] who presents to therapy for Transfer from [facility], no records or labs available. Pt unable to provid e history. Reportedly stopped medications x 1 month ago. Hx 4L paracentesis @ [facility] 03/23; hx seizures, chronic anemia. Now- [...] from multiple contributors. ADLs Toileting, Level of Lapwai: contact guard assist, verbal cues required, set up requir ed Assistive Device: grab bar Toileting Assess/Train, Position: sitting, supported standing Toileting Assess/Train, Impairments: impaired balance, strength decreased, coordination imp aired Cognitive Mood/Behavior: hypoactive (quiet, withdrawn), flat affect Orientation: oriented x 4 Speech: (very soft) Transfers Toilet, Level of Lapwai: contact guard assist, verbal cues required, set [...] alarm in place. lan of Care - [facility] Kristen chow RN - 09/03/2015 6:36 [...] neurologic deterior ation7. pain8. renal dysfunction9. respiratory gvqsomthsv16. situational response Intervention: Promote Neurologic Homeostasis Patient [...] is the land line at [place] as there is no Cell p [facility] receptionist out there) #[phone]). He said that the living situation is as follows. She has a room in her Aunt Angy's home located in [place], [place] that she doesn't use very o ften where four of her Cousins live as well. She normally lives with Edd in a mobile that is located below Aunt Angy's home. There are three steps leading to the entrance on the [facility]. Trixie Rose PA-C at the [facility] is her PCP. I called brian amaro and had them place her name on Shaila's chart. She uses the pharmacy located at [facility] first then uses the [place] [facility] second. She owns a cane, a four wheel walker, hand rails by the tub/shower and toilet, a hand held shower head and uses a metal fold up chair in the tub. She has used the [facility] for most of her DME and then would li ke to use [facility] located in [place], [place]. They said that [facility] would be fine if they would come out. They said that the four Cousins staying at Aunt [place] home are all drinking all the time. Edd said that his home would be a safe place for H H to visit though. Edd said that she would go back to [facility] as her "Plan B" as she has [...] with her Drug and Alcohol Counselor, Andreia ([phone]), from [facility] and that she had helped arrange for her to come to [facility]. There was a questions as to [...] liquid diet w/ 1800 ml fluid restriction. e27 labs pending. Anticipate paracentesis today. documented in [...] | | | preparation was performed by [employer] [address] | | | [address] [place] [address] and [employer], [place] | | | [address] [place] [address]. Professional | | | interpretation was performed by [employer] [facility] | | | Center Branch - [address] [place] [address] (Medical | | | Director: Bebeto Ruiz M.D.; [facility]#:[id number]).8 Diagnostician: | | | Gladis Johnson M.S., KAVIN(ASCP), [facility] Insulation Machine Operator | | | Diagnostician: Bebeto [...] [address] | [place] | [phone] | | [facility] | | [address] | | | - LABORATORY | | [...] [address] | [place] | [phone] | | [facility] | | [address] | | | - LABORATORY | | [...] 0.51 (L) | 0.60 - 1.30 | [facility] | | | | | mg/dL | [facility] | | | | | | MEDICAL | | | | | | CENTER - | | | | | | LABORATORY | | + + + + + + | eGFR, | >60Comment: GLOMERULAR | >=60 | [facility] | | | non- | FILTRATION | mL/min/1.73m2 | [facility] | | | Jamaican | RATE,ESTIMATED | | MEDICAL | | | | mL/min/1.13k1Yxrc than | | CENTER - | | [...] + | [address] | [address] | [place] | [phone] | | [facility] | | [address] | | | - LABORATORY | | [...] + + + | UNIT # | [id number] | | [facility] | | | | [...] St | [place] | | | [facility] | | [address] | | | - BLOOD BANK | [...] [address] | [place] | [phone] | | [facility] | | [address] | | | - LABORATORY | | [...] | | | | | mmol/L | [facility] | | | | | | MEDICAL | | | | | | CENTER - | | | | | | LABORATORY | | + + + + + + | K | 3.3 (L) | 3.5 - 5.1 | [facility] | | | | | mmol/L | [facility] | | | | | | [...] mL/min/1.73m2 | [facility] | | | Jamaican | RATE,ESTIMATED | | MEDICAL | | | | mL/min/1.34e7Zavg than | | CENTER - | | [...] [address] | [place] | [phone] | | [facility] | | [address] | | | - LABORATORY | | [...] ST. | [address] | [place], [place] | [phone] | | [facility] | | [address] | | | - LABORATORY | | [...] [address] | [place] | [phone] | | [facility] | | [address] | | | - LABORATORY | | [...] ST. | [address] | [place], [place] | [phone] | | [facility] | | [address] | | | - LABORATORY | | [...] non- | FILTRATION | mL/min/1.73m2 | [facility] | | | Jamaican | RATE,ESTIMATED | | MEDICAL | | | | mL/min/1.02o3Lmfv than | | CENTER - | | [...] | | | | mg/dL | [facility] | | | | | | MEDICAL [...] [address] | [place] | [phone] | | [facility] | | [address] | | | - LABORATORY | | [...] [address] | [place] | [phone] | | [facility] | | [address] | | | - LABORATORY | | | | + + + + + Surgical Pathology Exam (09/08/2015 12:00 AM PDT) + + | Specimen | + + | Soft tissue sample | | (specimen) | + + + + + | Narrative | Performed At | + + + | SPECIMEN(S): A LIVER NEEDLE BIOPSY SPECIMEN SOURCE: A. LIVER | [place] [facility] | | NEEDLE BIOPSY CLINICAL HISTORY: [...] may not be | | | fully sales donor recruitment representative should be considered. Noninvasive MRI studies | | | may help to further characterize the lesion if clinical concern | | | remains. Results discussed with Dr. Albert by Dr. More on | | | September 09 at 3:10 p.m. [facility]:C2NR GROSS DESCRIPTION: The specimen, | | | [...] for | | | neoplastic hepatocellular nodules. [facility] PERFORMING LABORATORY: | | | Tissue processing and slide preparation were performed by [employer] | | | [place], [address] [place] [address], [address], [place] [address] | | | (Aircraft Maintenance Engineer: Bebeto Ruiz M.D.; CLIA#: [id number]). | | | Professional interpretation was performed by [facility] [employer] | | | [facility], [address] [place], | | | [place] [address] (Aircraft Maintenance Engineer: Jonny Ernandez M.D.; [facility]#: | | | [id number]). Diagnostician: Ana M Holm MD Pathologist | [...] | | | | | | Performed: [place] | | | | | | [facility] | | | | | | [place], [address], | | | | | | [place] [address] | | | | + + + [...] [address] | [place] [address] | [phone] | + + + + + PTT [...] [address] | [place] | [phone] | | [facility] | | [address] | | | - LABORATORY | | [...] + | [facility] | [address] | [place] | [phone] | | [facility] | | [address] | | | - LABORATORY | | [...] [address] | [place] | [phone] | | [facility] | | [address] | | | - LABORATORY | | [...] mL/min/1.73m2 | [facility] | | | [place]ican | RATE,ESTIMATED | | MEDICAL | | | | mL/min/1.06b7Rsmn than | | CENTER - | | [...] + | [facility] | [address] | [place] | [phone] | | [facility] | | [address] | | | - LABORATORY | | [...] + + + | UNIT # | [id number] | | [facility] | | | | | | [facility] | | | | | | MEDICAL | | | | | | CENTER - | | | | | | BLOOD BANK | | + + + + + + | UNIT ABO | O | | [facility] | | | | | | [facility] | | | | | | [...] St | [place] | | | [facility] | | [address] | | | - BLOOD BANK | [...] | | | report was sent by [employer] ([employer]) on 09/06/2015 at 7:03 PM with no [...] | | preliminary report was sent by [employer] ([employer]) on 09/06/2015 at 7:03 PM with | [...] | |A preliminary report was sent by [employer] ([employer]) on 09/06/2015 at 7:03 PM with no [...] [address] | [place] | [phone] | | [facility] | | [address] | | | - LABORATORY | | [...] 7 | 7 - 18 mg/dL | [facility] | | | | | | [facility] | | | | | | MEDICAL | | | | | | CENTER - | | | | | | LABORATORY | | + + + + + + | Creatinine | 0.59 (L) | 0.60 - 1.30 | [facility] | | | | | mg/dL | [facility] | | | | | | MEDICAL | | | | | | CENTER - | | | | | | LABORATORY | | + + + + + + | eGFR, | >60Comment: GLOMERULAR | >=60 | [facility] | | | non- | FILTRATION | mL/min/1.73m2 | [facility] | | | [place]ican | RATE,ESTIMATED | | MEDICAL | | | | mL/min/1.38w4Qmuw than | | CENTER - | | [...] + | [facility] | [address] | [place], [place] | [phone] | | [facility] | | [address] | | | - LABORATORY | | [...] St | [place] | | | [facility] | | [address] | | | - BLOOD BANK | [...] + + + | UNIT # | [id number] | | [facility] | | | | [...] St | [place] | | | [facility] | | [address] | | | - BLOOD BANK | [...] + + + | UNIT # | [id number] | | [facility] | | | | [...] ST. | [address] | [place] | | | [facility] | | [address] | | | - BLOOD BANK | [...] [address] | [place] | [phone] | | [facility] | | [address] | | | - LABORATORY | | [...] (L) | 7 - 18 mg/dL | [facility] | | | | | | [facility] | | | | | | MEDICAL | | | | | | CENTER - | | | | | | LABORATORY | | + + + + + + | Creatinine | 0.72 | 0.60 - 1.30 | [facility] | | | | | mg/dL | [facility] | | | | | | MEDICAL | | | | | | CENTER - | | | | | | LABORATORY | | + + + + + + | eGFR, | >60Comment: GLOMERULAR | >=60 | [facility] | | | non- | FILTRATION | mL/min/1.73m2 | [facility] | | | [place]ican | RATE,ESTIMATED | | MEDICAL | | | | mL/min/1.38l0Vwpq than | | CENTER - | | [...] + | [facility] | [address] | [place] | [phone] | | [facility] | | [address] | | | - LABORATORY | | [...] + | [facility] | [address] | [place] | [phone] | | [facility] | | [address] | | | - LABORATORY | | [...] ST. | [address] | [place] | [phone] | | [facility] | | [address] | | | - LABORATORY | | [...] [address] | [place] | [phone] | | [facility] | | [address] | | | - LABORATORY | | [...] (L) | 7 - 18 mg/dL | [facility] | | | | | | [facility] | | | | | | MEDICAL | | | | | | CENTER - | | | | | | LABORATORY | | + + + + + + | Creatinine | 0.54 (L) | 0.60 - 1.30 | [facility] | | | | | mg/dL | [facility] | | | | | | MEDICAL | | | | | | CENTER - | | | | | | LABORATORY | | + + + + + + | eGFR, | >60Comment: GLOMERULAR | >=60 | [facility] | | | non- | FILTRATION | mL/min/1.73m2 | [facility] | | | [place] | RATE,ESTIMATED | | MEDICAL | | | | mL/min/1.16f3Rbju than | | CENTER - | | [...] [address] | [place] | [phone] | | [facility] | | [address] | | | - LABORATORY | | [...] ST. | [address] | [place] | [phone] | | [facility] | | [address] | | | - LABORATORY | | [...] | | | | | | | [id number] | | | | | | Source [...] | | | | | | [place] | | | | | | [facility], [address] | | | | | | [address] [place], [place] [address] [address] | | | | + + + [...] [address] | [place] [address] | [phone] | + + + + + Ammonia [...] [address] | [place] | [phone] | | [facility] | | [address] | | | - LABORATORY | | [...] mL/min/1.73m2 | [facility] | | | [place] | RATE,ESTIMATED | | MEDICAL | | | | mL/min/1.75c8Nqyk than | | CENTER - | | [...] + | [facility] | [address] | [place] | [phone] | | [facility] | | [address] | | | - LABORATORY | | [...] [address] | [place] | [phone] | | [facility] | | [address] | | | - LABORATORY | | | | + + + + + Medical Cytology (09/03/2015 12:00 AM PDT) + + | Specimen | + + | | + + + + + | Narrative | Performed At | + + + | ORDERING PHYSICIAN: Grant Lomas MD PATIENT NAME: [facility] [place] [facility] | | SHAILA ALMEIDA GENDER: Romulo [...] | | | interpretation was performed by [employer] [facility] | | | Center Branch - [address] [place] [address] (Medical | | | Director: Bebeto Ruiz M.D.; [facility]#:[id number]).8 Technical | | | preparation was performed by [employer] [address] [facility] | | | [address] [place] [address] and [employer], [place] | | | [address] [place] [address]. Diagnostician: | | | Gladis Johnson M.S., [facility]), [facility] Insulation Machine Operator | | | Diagnostician: Ana [...] sam was made to accommodate the 8 Tristanian paracentesis trocar | | | catheter, which [...] made to accommodate the 8 | | Tristanian paracentesistrocar catheter, which were advanced into the [...] + + | Performing | Address | City/State/[facility] | Phone Number | | Organization [...] | | | | | | | [id number] | | | | | | Source [...] | | | | | | [place] | | | | | | [facility], [address] | | | | | | [place] [address] | | | | + + + [...] [address] | [place] [address] | [phone] | + + + + + Culture, [...] + | [facility] | [address] | [place] | [phone] | | [facility] | | [address] | | | - LABORATORY | | [...] ST. | [address] | [place], [place] | [phone] | | [facility] | | [address] | | | - LABORATORY | | [...] [address] | [place] | [phone] | | [facility] | | [address] | | | - LABORATORY | | [...] [address] | [place] | [phone] | | [facility] | | [address] | | | - LABORATORY | | [...] [address] | [place] | [phone] | | [facility] | | [address] | | | - LABORATORY | | [...] + + + | Color, Body | [place] | | [facility] | | | Fluid [...] [address] | [place] | [phone] | | [facility] | | [address] | | | - LABORATORY | | [...] [place] | | | | | | [address] | | | | + + + [...] [address] | [place] [address] | [phone] | + + + + + Ferritin [...] + | [facility] | [address] | [place] | [phone] | | [facility] | | [address] | | | - LABORATORY | | [...] [address] | [place] | [phone] | | [facility] | | [address] | | | - LABORATORY | | [...] + | [facility] | [address] | [place] | [phone] | | [facility] | | [address] | | | - LABORATORY | | [...] [address] | [place] | [phone] | | [facility] | | [address] | | | - LABORATORY | | [...] [address] | [place] | [phone] | | [facility] | | [address] | | | - LABORATORY | | [...] [place] | | | | | | [address] | | | | + + + [...] [facility] | [address] | [place] [address] | [phone] | + + + + + Loreime [...] [address] | [place] | [phone] | | [facility] | | [address] | | | - LABORATORY | | [...] ST. | [address] | [place] | [phone] | | [facility] | | [address] | | | - LABORATORY | | [...] + | [facility] | [address] | [place] | [phone] | | [facility] | | [address] | | | - LABORATORY | | [...] (L) | 7 - 18 mg/dL | [facility] | | | | | | [facility] | | | | | | MEDICAL | | | | | | CENTER - | | | | | | LABORATORY | | + + + + + + | Creatinine | 0.54 (L) | 0.60 - 1.30 | [facility] | | | | | mg/dL | [facility] | | | | | | MEDICAL | | | | | | CENTER - | | | | | | LABORATORY | | + + + + + + | eGFR, | >60Comment: GLOMERULAR | >=60 | [facility] | | | non- | FILTRATION | mL/min/1.73m2 | [facility] | | | [place] | RATE,ESTIMATED | | MEDICAL | | | | mL/min/1.09g1Pbdm than | | CENTER - | | [...] ST. | [address] | [place] | [phone] | | [facility] | | [address] | | | - LABORATORY | | [...] [address] | [place] | [phone] | | [facility] | | [address] | | | - LABORATORY | | [...] [address] | [place] | [phone] | | [facility] | | [address] | | | - LABORATORY | | [...] - 1.030 | [facility] | | | [place], | | | [facility] | | [...] [address] | [place] | [phone] | | [facility] | | [address] | | | - LABORATORY | | | | + + + + + Medical Cytology (09/02/2015 12:00 AM PDT) + + | Specimen | + + | | + + + + + | Narrative | Performed At | + + + | ORDERING PHYSICIAN: Grant Lomas MD PATIENT NAME: [facility] PATH[facility] | | SHAILA ALMEIDA GENDER: Romulo [...] | | | interpretation was performed by [facility] | | | [facility] - [address] [place] [address] (Medical | | | Director: Bebeto Ruiz M.D.; CLIA#:[id number]).8 Technical | | | preparation was performed by [employer] [facility]o [address]enee | | | [place] [address] and [facility] | | | [address] [facility] [place] [address]. Diagnostician: | | | Gladis Johnson M.S., [place]([facility]), [facility] Insulation Machine Operator | | | Diagnostician: Ana M Holm MD Pathologist Electronically | | | Signed 09/03/2015 | | + + + + +---------+ + + | Performing | Address | City/State/[facility] | Phone Number | | Organization [...] | | Blood in | | | [facility] | | | 3rd | | | [...] + | [facility] | [address] | [place] | [phone] | | [facility] | | [address] | | | - LABORATORY | | [...] [address] | [place] | [phone] | | [facility] | | [address] | | | - LABORATORY | | [...] + | [facility] | [address] | [place] | [phone] | | [facility] | | [address] | | | - LABORATORY | | [...] 0.48 (L) | 0.60 - 1.30 | [facility] | | | | | mg/dL | [facility] | | | | | | MEDICAL | | | | | | CENTER - | | | | | | LABORATORY | | + + + + + + | eGFR, | >60Comment: GLOMERULAR | >=60 | [facility] | | | non- | FILTRATION | mL/min/1.73m2 | [facility] | | | [place] | RATE,ESTIMATED | | MEDICAL | | | | mL/min/1.58n2Tjmk than | | CENTER - | | [...] [address] | [place] | [phone] | | [facility] | | [address] | | | - LABORATORY | | [...] [address] | [place] | [phone] | | [facility] | | [address] | | | - LABORATORY | | [...] St | [place] | | | [facility] | | [address] | | | - BLOOD BANK | [...] | | chromogenic agar method | | [facility] | | | | | | MEDICAL [...] [address] | [place] | [phone] | | [facility] | | [address] | | | - LABORATORY | | [...]
--- OUTSIDE RECORDS SUMMARY | ~2020-01-23 | XMS | Encounter Summary ---
Demographics + + + | Address | [address] | | | [place] [address] | + + + | Home Phone | | + + + | Preferred Language | Unknown | + + + | Marital Status | Single | + + + | Taoism Affiliation | [id number] | + + + | Race | or | + + + | Ethnic Group | Not or | + + + Author + + + | Author | [facility] | | | and [place] | + + + | Organization | [facility] | | | and [place] | + + + | Address | Unknown | + + + | Phone | Unavailable | + + + Support + + + + + | Name | Relationship | Address | Phone | + + + + + | Joanne Pham | ECON | [address] | | | | | [place] | | | | | [phone] | | + + + + + | Viktor Son | EDDIE | Unknown | | + + + + + | Edd Gill | ECON | Unknown | | + + + + + | Conner Barber | ECON | Unknown | | + + + + + Care Team Providers + +------+ + | Care Plant Operations Manager Name | Role | Phone | [...] | | | | | | | ([facility]) | | | | | | | Hypertensive | | | | | | | urgency | | | | | | | Recurrent | | | | | | | seizures | | | | | | | ([facility]) | | | | | | | Altered | | | | | | | sensorium | | | | | | | | | | +--------+--------+ + + + + Encounter Details +--------+ + + + + | Date | Type | Department | Care Team | Description | +--------+ + + + + | 10/31/ | Hospital | [facility] | Danish George, | Hypertensive urgency | | 2017 - | Encounter | [facility] | [address] | (Primary Dx); | | | | [address] | [place] | Altered sensorium; | | 11/07/ | | [place] [id number] | [id number] | Hypokalemia; | | 2017 | | [phone] | | Recurrent seizures | | | | | Michael, Morro Singletary, | (HCC); Delirium | | | | | MD [address] | tremens (HCC); | | | | | [facility] [place] | Alcohol withdrawal | | | | | [place] [address] | seizure, with | | | | | [phone] | unspecified | | | | | | complication (HCC); | | | | | Francisco Choi P, | 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 1970 Admit date: 10/31/2016 Discharge [...] Patient was evaluated earlier this morning at [facility] em ergency room where she presented [...] might be different from the origin al. [facility] PMG Hospitalist Progress Note Shaila Son is [...] as outlined above. Jakub Chun 11/06/2016 10:54 [facility] Portions of this chart may have been created with Front Up voice recognition software. Occasi onal wrong-word or sound-alike substitutions may have occurred due to the inherent gallardo itations of voice recognition software. Please read the chart carefully and recognize, using context, where these substitutions have occurred Jakub Macias MD - 11/05/2016 11:30 AM PDT [facility] Hospitalist Progress Note Shaila Son is [...] as outlined above. Jakub Chun 11/05/2016 11:30 [facility] Portions of this chart may have been created with Front Up voice recognition software. Occasi onal wrong-word or sound-alike substitutions may have occurred due to the inherent gallardo itations of voice recognition software. Please read the chart carefully and recognize, using context, where these substitutions have occurred Gilberto, Jakub Smith MD - 11/04/2016 8:52 AM PDT [facility] Hospitalist Progress Note Shaila Son is [...] WWP, trace edema bilaterally Neurological: Oriented to [place], person, not hospital Jackson catheter present: No [...] as outlined above. Jakub Chun 11/04/2016 8:52 [facility] Portions of this chart may have been created with Front Up voice recognition software. Occasi onal wrong-word or [...] Macias MD - 11/03/2016 7:49 AM PDT [facility] Hospitalist Progress Note Shaila Son is [...] A small skin incision was made. 8 Burundian paracentesis needle and sheath was ad vanced [...] as outlined above. Jakub Chun 11/03/2016 7:49 [facility] Portions of this chart may have been created with Front Up voice recognition software. Occasi onal wrong-word or sound-alike substitutions may have occurred due to the inherent gallardo itations of voice recognition software. Please read the chart carefully and recognize, using context, where these substitutions have occurred Jakub Macias MD - 11/02/2016 7:23 AM PDT [facility] Hospitalist Progress Note Shaila Son is [...] only to person, states she is at "[facility] Jackson catheter present: Yes If [...] BF % Lymphocytes 18 % BF % Macro/[place] 68 % BF Total cells counted 100 [...] now present Confirmed by DAVID MADERA, PEPE ([id number]) on 11/02/2016 7:05:01 AM Comprehensive Metabolic Panel [...] A small skin incision was made. 8 Burundian paracentesis needle and sheath was ad vanced [...] as outlined above. Jakub Chun 11/02/2016 7:23 [facility] Portions of this chart may have been created with Front Up voice recognition software. Occasi onal wrong-word or sound-alike substitutions may have occurred due to the inherent gallardo itations of voice recognition software. Please read the chart carefully and recognize, using context, where these substitutions have occurred Francisco De La Garza DO - 11/02/2016 12:42 AM PDT [facility] BRIEF NIGHT COVERAGE NOTE Patient: Shaila Son : 1970: Age: 46 y.o. MedRec: [id number] Admission date: 10/31/2016 Hospital day # : [...] step down. Francisco Choi DO 11/02/2016 0:42 [facility] Portions of this chart may have been created with Front Up voice recognition software. Occasi onal wrong-word or [...] name, strength, and direction [facility] dr mcfarland and trixie rose PA-C nurses) X Pharmacy list names: [facility] X [employer] insurance reported information X Care [...] than the ones that are on the HAIR ASSISTANT list Medication review performed and electronically signed by Lily Davison, Physicist [facility] 2016 13:04 Reviewed by Annmarie Mcfadden, PharmD 11/01/2016 13:12 akub Chun MD - 11/01/2016 9:25 AM PDT [facility] Hospitalist Progress Note Shaila Son is [...] PH UA 6.0 5.0 - 8.0 Specific Jbphh 1.014 1.001 - 1.030 PROTEIN UA >=500 [...] ECGs available Confirmed by PEPE HERNANDEZ MD ([id number]) on 11/01/2016 6:25:42 AM Urinalysis with Microscopic with Culture if Indicated Result Value Ref Range COLOR Straw Light Yellow, Yellow, Straw CLARITY Clear Clear PH UA 6.0 5.0 - 8.0 Specific Jbphh 1.005 1.001 - 1.030 PROTEIN UA 30 [...] as outlined above. Jakub Chun 11/01/2016 9:25 [facility] Portions of this chart may have been created with Front Up voice recognition software. Occasi onal wrong-word or sound-alike substitutions may have occurred due to the inherent gallardo itations of voice recognition software. Please read the chart carefully and recognize, using context, where these substitutions have occurred documented in this encounter H&P Notes Francisco Choi DO - 11/01/2016 12:46 AM PDTFormatting of this note might be different f rom the original. [facility] HISTORY & PHYSICAL Patient: Shaila Son : 1970: Age: 46 y.o. MedRec: [id number] PCP: Trixie Rose PA-C Admission date: 10/31/2016 [...] was evaluat ed earlier this morning at [facility] emergency room where she presented with [...] CKTOTAL No results for input(s): PHART, PO2ART, FCB4GQW, LSU5ILY, BEART, R2WXLZOB in the last 168 h ours. No results for input(s): SPECSOURCE, PHPOCB, HCO3, TCO2, BEART, BE, UQOX6MHB in the last 16 8 hours. Invalid input(s): NBZDZ2SM, SNYV8IT (dot meylab) Xray Results: Ct Head Wo [...] Status Full code Medical Decision Maker Patient [facility] Documentation I expect this patient will be hospitalized for greater than 2-midnights and expect the post -hospital plan to be discharge to home or to an adult foster home. Time spent with the patient and sister (of which more than 50% was in counseling and/or cooling room attendant rdination the patient's care as outlined above) was 60 minutes. Electronically signed by: Francisco Choi DO 11/01/2016 0:47 [facility] Dot phrase reference: VSHOSP (VS in table, last 24 hours) MEYLAB (various labs to pull in) DT (date and time) LABRCNTIP[K:3,Na:3 (last 3 sets of labs using potassium and sodium as examples) HGB HCT PLT INR GLU POCGLU Na K BUN CREA, CALCIUM TROPONINI BNP DIGOXIN Portions of this chart may have been created with Front Up voice recognition software. Occasi onal wrong-word or [...] Needs: (based on 75 kg) Kcal needs: 2072-0325 Kcals/day Protein needs:75-85 grams of protein/day Fluid goal:8672-0477 cc fluid per day Nutrition Plan of [...] in 1 days. Available as needed, ext [phone] Assessment: Diet Order: For your reference, current, [...] Kunz MD - 10/31/2016 7:37 PM PDT [facility] Shaila Son Emergency Department Encounter Note [address] [place] [address] PCP:Trixie Rose PA-C [phone] CHIEF COMPLAINT: Chief Complaint Patient presents with Seizure (Adult - Alcoholic) ED Room: 421/421-[facility] Shaila Son is a 46 y.o. female who presents to the Emergency Department presents w [facility] family after having 2 seizures in [...] PH UA 6.0 5.0 - 8.0 Specific Jbphh 1.014 1.001 - 1.030 PROTEIN UA >=500 [...] PH UA 6.0 5.0 - 8.0 Specific Jbphh 1.005 1.001 - 1.030 PROTEIN UA 30 [...] BF % Lymphocytes 18 % BF % Macro/[place] 68 % BF Total cells counted 100 [...] A small skin incision was made. 8 Burundian paracentesis needle and sheath was advanced under [...] AM 20:39 Sinus tachycardia at 114 Normal MA and [place] Normal QRS and [place] Normal QT and QTc Normal ST/T without acute ischemic changes Very similar morphology without wandering baseline in comparison to an electrocardiogram da magen September 01, 2015 with the exact same rate of 114 bpm. Interpreted by Danish George DO. ED COURSE & MEDICAL DECISION MAKING Pertinent Labs & Imaging studies were reviewed along with EMS notes and retirement record s if applicable. (See chart for [...] discussed the patients clinical presentation with the specialty finishing utility person hosp italist for continuity of care and [...] recognition system. The possibility of "sound alike" hotel administrative assistant errors, addition and/or deletions may occur. If [...] he will get one on loan in [place]. This therapsit suggested pt wear magen hose for dri ve home and assisted w/ donning magen hose. Pt will d/c home this shortly w/ neighbor friend. position classification manager notified this therapist recommended extended tub bench for safety w/ tub shower s at home and pt's neighbor friend will be procuring one for pt. Occupational Therapy Discharge Recommendations are: Recommended discharge disposition: home with assist Post discharge occupational therapy recommendation: family involved/supportive, will benef it from structured setting Equipment Recommendations: Planned Interventions:ADL retraining, IADL retraining, cognitive retraining, fine motor cooling room attendant rdination training Recommended Frequency: 3 times/wk Patient [...] w/o physical assist LB Dressing, Level of [place]: stand by assist Assistive Device: none LB Dressing Assess/Train, Position: sitting LB Dressing Assess/Train, Impairments: decreased flexibility, pain, motor control impaired, coordination impaired, impaired balance Functional Endurance good Transfers Completed toilet t/f w/ supervison/cues using grab bar and dry run step in shower t/f w/ laguerre pervision/cues using grab bar Sit-Stand, Level of [place]: stand by assist, verbal cues required Stand-Sit, Level of [place]: supervised Aly-Osswo-Xsk, Assistive Device: 2 wheeled walker (FWW) Toilet, Level of [place]: supervised, verbal cues required Toilet, Assistive Device: 2 wheeled walker (FWW), grab bars Walk-in shower, Level of [place]: supervised, verbal cues required Walk-in shower, Assistive Device: 2 wheeled walker (FWW), grab bars Impairments: decreased flexibility, strength decreased, impaired balance LB Dressing Goal Flowsheet Row Most Recent Value STG Status progressing at 11/07/2016 1400 STG [place] Level modified independent at 11/03/2016 1638 STG Adaptive Equipment none at 11/03/2016 1638 Toilet Transfer Goal Flowsheet Row Most Recent Value STG Status progressing at 11/07/2016 1400 STG [place] Level modified independent at 11/03/2016 1638 STG Assistive Device toilet safety frame at 11/03/2016 1638 Tub/Shower Transfer Goal Flowsheet Row Most Recent Value Tub/Shower Type tub/shower combo at 11/03/2016 1638 STG Status not addressed at 11/07/2016 1400 STG [place] Level modified independent at 11/03/2016 1638 Functional Cognition Goal Flowsheet Row Most Recent Value STG Status progressing at 11/07/2016 1400 STG pt able to attend to and fully participate in self care ADL tasks, seated recreational activities and conversations consistently, 4/5 times. at 11/03/2016 1638 lan of Care - Ashlyn Ocampo - 11/07/2016 2:02 PM PDTDischarge Planning: This MEDICAL ART THERAPIST spoke with Shaila at her bedside. She [...] amounts of clear yellow urine. lan of [facility] - Leah Cole RRT - 11/07/2016 3:39 [...] Breath so unds appear clear. [facility] of [facility] - Erika Wadsworth RN - 11/06/2016 6:38 [...] her Aunt, her Sister and her Aunt's high lift driver. I received a call from Amena from [place] this afternoon and she was asking about [...] factor , as pt has difficulty tracking [facility] final attention portion of the test. Pt [...] retraining, IADL retraining, cognitive retraining, fine motor cooling room attendant rdination training Recommended Frequency: 3 times/wk Patient Status/Goals: Reflects last filed data and may be from multiple contributors. ADLs Pt performing grooming and toileting with supervision, per LICENSED LOAN OFFICER report. Cognitive Administered SLUMS cognitive test, and pt scored in dementia range, 17/30. However, pt is m uch improved from previous OT treatment. She is able to track activity and instructions, tho ugh speech continues to be quiet. Cognitive Tests Standardized Tests: [facility] Mental Status ([facility] Shaila scored 17/30 on the SLUMS, indicating she currently has a severe level of cognitive di sorder. Interpretation: - Patients with High School Education 27-30 = normal 21-26 = mild neurocognitive disorder 1-20 = dementia - Patients with less than High School Education 25-30 = normal 20-24 = mild neurocognitive disorder 1-19 = dementia For more information, please visit: [email or web address] LB Dressing Goal Flowsheet Row Most Recent Value STG Status new at 11/03/2016 1638 STG [place] Level modified independent at 11/03/2016 1638 STG Adaptive Equipment none at 11/03/2016 1638 Toilet Transfer Goal Flowsheet Row Most Recent Value STG Status new at 11/03/2016 1638 STG [place] Level modified independent at 11/03/2016 1638 STG Assistive Device toilet safety frame at 11/03/2016 1638 Tub/Shower Transfer Goal Flowsheet Row Most Recent Value Tub/Shower Type tub/shower combo at 11/03/2016 1638 STG Status new at 11/03/2016 1638 STG [place] Level modified independent at 11/03/2016 1638 Functional Cognition Goal Flowsheet Row Most Recent Value STG Status new at 11/03/2016 1638 STG pt able to attend to and fully participate in self care ADL tasks, seated recreational activities and conversations consistently, 4/5 times. at 11/03/2016 1638 Electronically signed by: Carlos Gonsales OT, 11/06/2016 18:19 lan of [facility] [facility] - Alicia Baker RN - 11/06/2016 6:10 PM PDTProblem: Discharge Planning Goal: Patient will be discharged in a safe manner Outcome: Unchanged This CM called patient's home and spoke with Anette, patient's sister, requesting her cell # which is [phone]. Per patient, Anette is taking cleaning at [...] known. lan of Care - Lul Hermosillo, HAIR ASSISTANT - 11/06/2016 2:15 PM PDTFormatting of this [...] Therapy Discharge Recommendations are: Recommended discharge disposition: usp facility Post discharge physical therapy recommendation: will [...] x2 d/t R forearm cramp/tightness Level of [place]: stand by assist, verbal cues required (close) Assistive Device: 2 wheeled walker (FWW) Distance (feet): 195', 120', 75' Impairments: impaired balance, motor control impaired, coordination impaired Transfers Light Sup d/t general safety, slight impulsivity, vc for waiting for therapist to be in pos ition, vc for bringing AD device with her to chair Sit-Stand, Level of [place]: supervised, verbal cues required (Light) Stand-Sit, Level of [place]: supervised, verbal cues required Dtj-Edaap-Ecb, Assistive Device: 2 wheeled walker (FWW) Safety Issues: sequencing ability decreased, step length decreased, loses balance backward Impairments: pain, impaired balance, coordination impaired, motor control impaired Bed Mobility Mod I d/t extra time Assistive Device: bed rails Supine to Sit, Level of [place]: modified independent Sit to Supine, Level of [place]: modified independent Impairments: postural control impaired, coordination [...] STG Review Date 11/09/16 at 11/03/2016 1150 Zsixry-Ryn-Nwbkoe Goal Flowsheet Row Most Recent Value STG Status progressing at 11/06/2016 1415 STG [place] Level independent at 11/03/2016 1150 STG Assistive Device none at 11/03/2016 1150 Rms-Jonuu-Bik Goal Flowsheet Row Most Recent Value STG Status progressing at 11/06/2016 1415 STG [place] Level modified independent at 11/05/2016 1419 STG Assistive Device -- [least restrictive AD, either FWW or cane] at 11/05/2016 1419 Gait Goal Flowsheet Row Most Recent Value STG Status progressing at 11/06/2016 1415 STG [place] Level modified independent at 11/04/2016 1808 STG [...] Needs: (based on 75 kg) Kcal needs: 2421-1088 Kcals/day Protein needs:75-80 grams of protein/day Fluid goal:6125-3538 cc fluid per day Nutrition Plan of [...] in 3 days. Available as needed, ext [phone] Assessment: Diet Order: For your reference, current, [...] Therapy Discharge Recommendations are: Recommended discharge disposition: usp facility Post discharge physical therapy recommendation: will [...] w/ excessive wt on BUE's. Level of Char[place]: contact guard assist, verbal cues required Assistive Device: 2 wheeled walker (FWW) Distance (feet): 300 Impairments: impaired balance, motor control impaired, coordination impaired Transfers good technique, no cuing needed Sit-Stand, Level of [place]: supervised Stand-Sit, Level of [place]: supervised Qio-Atvbh-Ceg, Assistive Device: 2 wheeled walker (FWW) Safety Issues: sequencing ability decreased, step length decreased, loses balance backward Impairments: pain, impaired balance, coordination impaired, motor control impaired Bed Mobility No physical assist needed Assistive Device: bed rails, HOB elevated Supine to Sit, Level of [place]: modified independent Sit to Supine, Level of [place]: modified independent Impairments: postural control impaired, coordination [...] STG Review Date 11/09/16 at 11/03/2016 1150 Qbyfwt-Hsl-Yopltl Goal Flowsheet Row Most Recent Value STG Status progressing at 11/05/2016 1419 STG [place] Level independent at 11/03/2016 1150 STG Assistive Device none at 11/03/2016 1150 Nvc-Wgktp-Pas Goal Flowsheet Row Most Recent Value STG Status progressing, revised at 11/05/2016 1419 STG [place] Level modified independent at 11/05/2016 1419 STG Assistive Device -- [least restrictive AD, either FWW or cane] at 11/05/2016 1419 Gait Goal Flowsheet Row Most Recent Value STG Status progressing at 11/05/2016 1419 STG [place] Level modified independent at 11/04/2016 1808 STG [...] III. tatiana of Care - Livan Motley, E COMMERCE ANALYST - 11/05/2016 5:12 AM PDTProblem: Patient Care [...] SOB. Inter mittent audible wheeze. lan of [facility] on, Kamille Dickson RN - 11/05/2016 [...] bloo d return. Possibly will go to [facility] upon discharge. lan of Care - Lachelle [...] Therapy Discharge Recommendations are: Recommended discharge disposition: usp facility Post discharge physical therapy recommendation: will [...] moderately ataxic, equal wt bearing Level of [place]: contact guard assist, verbal cues required, set up required Assistive Device: 2 wheeled walker (FWW) Distance (feet): 200 Impairments: impaired balance, motor control impaired, coordination impaired Transfers Cues provided to push up with UEs and reach back prior to sitting for improved safety. Sit-Stand, Level of [place]: (NT as pt was received walking from bathroom w/ sitter) Stand-Sit, Level of [place]: stand by assist, verbal cues required Nul-Xszqn-Wsp, Assistive Device: 2 wheeled walker (FWW) Safety [...] STG Review Date 11/09/16 at 11/03/2016 1150 Xfstan-Bby-Qovxor Goal Flowsheet Row Most Recent Value STG Status new at 11/03/2016 1150 STG [place] Level independent at 11/03/2016 1150 STG Assistive Device none at 11/03/2016 1150 Bcl-Dcboi-Ewd Goal Flowsheet Row Most Recent Value STG Status progressing at 11/04/2016 1808 STG [place] Level independent at 11/03/2016 1150 STG Assistive Device -- [TBD] at 11/03/2016 1150 Gait Goal Flowsheet Row Most Recent Value STG Status revised, progressing at 11/04/2016 180 STG [place] Level modified independent at 11/04/2016 180 STG Assistive Device -- [Least restrictive AD] at 11/04/2016 180 STG Distance (feet) 300 at 11/04/2016 1808 Electronically signed by: Lachelle Davis, PT, 11/04/2016 18:12 lan of Care - Valerei Sesay, ALESSANDRO - 11/04/2016 3:54 PM PDTProblem: [...] r her sister). [facility] with primary dx of seizures, severe electrolyte imba ramirez, malnutrition. acute heart failure, all likely related to ETOH and withdrawal. Per mark Baker, pt used SPC and Anette provided extensive assistance with dressing, bathing, mobil ity, cooking, cleaning. However, pt did walk independently at times and even without her can e but has hx of multiple falls. Ex-boyfriend lives in [facility] [place] on same property and he is the [...] Therapy Discharge Recommendations are: Recommended discharge disposition: usp facility Post discharge physical therapy recommendation: will [...] weight shift onto L LE Level of [place]: contact guard assist, verbal cues required, set up required Assistive Device: 2 wheeled walker (FWW) Distance (feet): 40 Transfers Cues provided to push up with UEs and reach back prior to sitting for improved safety. Sit-Stand, Level of [place]: set up required, verbal cues required, contact guard assi st Stand-Sit, Level of [place]: contact guard assist, verbal cues required Nvl-Ioiju-Fxs, Assistive Device: 2 wheeled walker (FWW) Safety [...] STG Review Date 11/09/16 at 11/03/2016 1150 Frjpcz-Aim-Bthjtn Goal Flowsheet Row Most Recent Value STG Status new at 11/03/2016 1150 STG [place] Level independent at 11/03/2016 1150 STG Assistive Device none at 11/03/2016 1150 Fyv-Tretw-Dvd Goal Flowsheet Row Most Recent Value STG Status new at 11/03/2016 1150 STG [place] Level independent at 11/03/2016 1150 STG Assistive Device -- [TBD] at 11/03/2016 1150 Gait Goal Flowsheet Row Most Recent Value STG Status new at 11/03/2016 1150 STG [place] Level independent at 11/03/2016 1150 STG Assistive Device -- [TBD] at 11/03/2016 1150 Electronically signed by: Clare Menchaca, PT, 11/03/2016 18:27 lan of Care - [facility] sis, Carlos Rice, OT - 11/03/2016 [...] retraining, IADL retraining, cognitive retraining, fine motor cooling room attendant rdination training Recommended Frequency: 3 times/wk Patient Status/Goals: Reflects last filed data and may be from multiple contributors. ADLs Pt experiencing difficulty engaging in activity, attending to verbal instructions, replies are sometimes difficult to hear and understand. Max A to don socks LB Dressing, Level of Chariton: maximal assist (25% patient effort) Assistive Device: none LB Dressing Assess/Train, Position: sitting LB Dressing Assess/Train, Impairments: decreased flexibility, pain, motor control impaired, coordination impaired, impaired balance Required min A to stand at sink with FWW for grooming tasks, tends to lean backward when up right, vs leaning on forearms on countertop. Grooming, Level of [place]: minimal assist (75% patient effort) Assistive Device: [...] of the time Transfers Sit-Stand, Level of [place]: minimal assist (75% patient effort) Stand-Sit, Level of [place]: contact guard assist [id number], Assistive Device: 2 wheeled walker (FWW) Safety [...] STG Status new at 11/03/2016 1638 STG [place] Level modified independent at 11/03/2016 1638 STG Adaptive Equipment none at 11/03/2016 1638 Toilet Transfer Goal Flowsheet Row Most Recent Value STG Status new at 11/03/2016 1638 STG [place] Level modified independent at 11/03/2016 1638 STG Assistive Device toilet safety frame at 11/03/2016 1638 Tub/Shower Transfer Goal Flowsheet Row Most Recent Value Tub/Shower Type tub/shower combo at 11/03/2016 1638 STG Status new at 11/03/2016 1638 STG [place] Level modified independent at 11/03/2016 1638 Functional [...] Unchanged This CM called Janusz, DNS, at [facility] this AM. He stated that he did not receive the [facility] SNF referral so efaxed the SNF referral with fac e sheet to him this AM if needed for patient. Per her sister, patient has been there in the past for a short while. TN# [id number], [id number]. Let Janusz know that she is not ready to be discharged yet, and still has a sitter. 10:20 This CM called and spoke with [facility] and they will be having someone call me regarding some help in the home for this patient. Number given them to call this CM back. Annemarie, patient menagerie caretaker, is not in today. 11:30 This CM received call from Yola, Community Health Nurse Library Associate at [facility], p# [phone]. She stated that they do NOT provide any in home care giving, that this would need to be set up with [place] benefits. This CM gave Anette, patient's sister, the CM card with phone number and also the number of the [facility] for her to call in case the patient goes back home at discharge to get a home assessment done for setting up caregivers for her in the home. Let her know t hat [facility] does not provide these services. CM will need to follow up with [facility] regarding the referral faxed. Patient will most likely still be here over the weekend, which was told DWAYNE Boudreaux at [facility]. Electronically signed by: Alicia Baker RN 11/03/2016 [...] [G40.909] Altered sensorium [R40.4]. Spiritual Evaluation: Raised Sikh Spiritual Intervention: Had prayer with patient and her sister. Pastoral presence, and Active Listening. Spiritual Outcomes: Patient and her family grateful for infant nanny's visit. Spiritual Goals / Follow-up: Will see the patient as requested. If there are any other spiritual care issues that arise, please contact infant nanny. ed Student Not e - Josias Fernandez, [...] III. lan of Care - Cee Barros, E COMMERCE ANALYST - 11/03/2016 5:43 AM PDTProblem: Patient Care [...] for up to 5 hours. lan of [facility] - Valerie Ro RRT - 11/02/2016 5:15 [...] 9-13, patient was was tachycardic last night [id number] , metoprolol given x 5, breath jose [...] both live in their aunts home in [place] and she is Shaila's caregi juice and [...] that she chose to come here not [facility]'s since she just was in their ED yesterday for 3 hrs and they rele ased her and at home she had a "seizure" per Anette, so she was brought here by private car. Anette also states that Shaila is interested in quitting drinking and would like to go the [facility] in [place], a alcohol rehab center there. She also has 2 adult children ages 19 and 20 who live there in a foster home, but cold not get ahold of the family when she was just there recently to give them gifts that she had shannon duong, per Anette. Anette did report that patient has been at [facility] for rehab in the past when nereida jacobson needed it and that since this is close to their home Anette was in agreement to send a refe rral out to them again in case this is needed. [place] was too far away, she reports. [facility] faxed a SNF referral to with request to call this CM if needed for questions. Preference form was signed and placed in ghost chart. Left message with Irena to have her call me since was able to EPIC fax only not thru the i n-basket. This CM also called Uyen, financial counselor, requesting she come [facility] some in home caregiving since this has not been done in the past. She [place]. Anette states that patient's PCP is PERNELL Mcclendon, at the [facility],and that s he gets her meds from them as well, but no caregiving. Called and left message at [facility], p# [phone], to have Annemarie Garcia, pt c are [...] if needed. This CM also called the [facility], p# [phone], and left message with April ngo CM, worker of the day, to return call LASHAY to discuss increased needs at home for this patient. This was done at the request of Uyen financial counselor, since patient is from [facility]. CM will need to follow closer to discharge regarding a SNF placement or more C/G help in [facility].Electronically signed by: Alicia Baker RN 11/01/2016 12:09 14:45 Edwin, tap out operator for the day at [facility], called this CM and stated that if patient goes to SNF first for rehab the social and human services assistant there would contact them to [facility] some home care set up with assessments [...] Suzy Mcmillan RN - 11/01/2016 3:31 AM [id number]: rec'd pt to rm 452 from ER, pt is somnulent, l ethargic, opens eyes briefly to voice, denies pain. Sister, anette, at bedside, assists w ans wering admit qstns. pts abd is grossly distended w ascites, both legs w 4+ pitting edema to hip/flank areas. Skin is tough, thickened w patchy thick dry areas. lan of Suzy Mcmillan RN - 2:18 AM [id number]: pt rec'd to rm 452 from ER, [...] + | [facility] | [address] | [place] | [phone] | | [facility] | | [address] | | | - LABORATORY | | [...] + | [facility] | [address] | [place], [place] | [phone] | | [facility] | | [address] | | | - LABORATORY | | [...] mL/min/1.73m2 | [facility] | | | Brazilian | RATE,ESTIMATED | | MEDICAL | | | | mL/min/1.09z6Dzpm than | | CENTER - | | [...] [address] | [place] | [phone] | | [facility] | | [address] | | | - LABORATORY | | [...] + | [facility] | [address] | [place] | [phone] | | [facility] | | [address] | | | - LABORATORY | | [...] - 1.030 | [facility] | | | Jbph[facility], | | | [facility] | | [...] [address] | [place] | [phone] | | [facility] | | [address] | | | - LABORATORY | | [...] + | [facility] | [address] | [place] | [phone] | | [facility] | | [address] | | | - LABORATORY | | [...] [address] | [place] | [phone] | | [facility] | | [address] | | | - LABORATORY | | [...] ST. | [address] | [place], [place] | [phone] | | [facility] | | [address] | | | - LABORATORY | | [...] non- | FILTRATION | mL/min/1.73m2 | [facility] | | | Brazilian | RATE,ESTIMATED | | MEDICAL | | | | mL/min/1.03n4Pzen than | | CENTER - | | [...] [address] | [place] | [phone] | | [facility] | | [address] | | | - LABORATORY | | [...] [address] | [place] | [phone] | | [facility] | | [address] | | | - LABORATORY | | [...] | Eosinophils | | K/uL | [facility] | | | | [...] [address] | [place] | [phone] | | [facility] | | [address] | | | - LABORATORY | | [...] | 0.71 | 0.60 - 1.30 | [facility] | | | | | mg/dL | [facility] | | | | | | MEDICAL | | | | | | CENTER - | | | | | | LABORATORY | | + + + + + + | eGFR, | >60Comment: GLOMERULAR | >=60 | [facility] | | | non- | FILTRATION | mL/min/1.73m2 | [facility] | | | Brazilian | RATE,ESTIMATED | | MEDICAL | | | | mL/min/1.40x2Dpfm than | | CENTER - | | [...] [address] | [place] | [phone] | | [facility] | | [address] | | | - LABORATORY | | [...] [address] | [place] | [phone] | | [facility] | | [address] | | | - LABORATORY | | [...] [address] | [place] | [phone] | | [facility] | | [address] | | | - LABORATORY | | [...] [address] | [place] | [phone] | | [facility] | | [address] | | | - LABORATORY | | [...] | 0.73 | 0.60 - 1.30 | [facility] | | | | | mg/dL | [facility] | | | | | | MEDICAL | | | | | | CENTER - | | | | | | LABORATORY | | + + + + + + | eGFR, | >60Comment: GLOMERULAR | >=60 | [facility] | | | non- | FILTRATION | mL/min/1.73m2 | [facility] | | | Brazilian | RATE,ESTIMATED | | MEDICAL | | | | mL/min/1.86y8Bteb than | | CENTER - | | [...] + | [facility] | [address] | [place], [place] | [phone] | | [facility] | | [address] | | | - LABORATORY | | [...] [address] | [place] | [phone] | | [facility] | | [address] | | | - LABORATORY | | [...] [address] | [place] | [phone] | | [facility] | | [address] | | | - LABORATORY | | [...] [address] | [place] | [phone] | | [facility] | | [address] | | | - LABORATORY | | [...] | 0.67 | 0.60 - 1.30 | [facility] | | | | | mg/dL | [facility] | | | | | | MEDICAL | | | | | | CENTER - | | | | | | LABORATORY | | + + + + + + | eGFR, | >60Comment: GLOMERULAR | >=60 | [facility] | | | non- | FILTRATION | mL/min/1.73m2 | [facility] | | | Brazilian | RATE,ESTIMATED | | MEDICAL | | | | mL/min/1.33z3Bbya than | | CENTER - | | [...] [address] | [place] | [phone] | | [facility] | | [address] | | | - LABORATORY | | [...] ST. | [address] | [place], [place] | [phone] | | [facility] | | [address] | | | - LABORATORY | | [...] (L) | 7 - 18 mg/dL | [facility] | | | | | | [facility] | | | | | | MEDICAL | | | | | | CENTER - | | | | | | LABORATORY | | + + + + + + | Creatinine | 0.57 (L) | 0.60 - 1.30 | [facility] | | | | | mg/dL | [facility] | | | | | | MEDICAL | | | | | | CENTER - | | | | | | LABORATORY | | + + + + + + | eGFR, | >60Comment: GLOMERULAR | >=60 | [facility] | | | non- | FILTRATION | mL/min/1.73m2 | [facility] | | | Brazilian | RATE,ESTIMATED | | MEDICAL | | | | mL/min/1.19s9Bbyq than | | CENTER - | | [...] [address] | [place] | [phone] | | [facility] | | [address] | | | - LABORATORY | | [...] [address] | [place] | [phone] | | [facility] | | [address] | | | - LABORATORY | | [...] [address] | [place] | [phone] | | [facility] | | [address] | | | - LABORATORY | | [...] | | | mg/dL | [facility] | | | | | | MEDICAL | | | | | | CENTER - | | | | | | LABORATORY | | + + + + + + | eGFR, | >60Comment: GLOMERULAR | >=60 | [facility] | | | non- | FILTRATION | mL/min/1.73m2 | [facility] | | | Brazilian | RATE,ESTIMATED | | MEDICAL | | | | mL/min/1.90z0Opag than | | CENTER - | | [...] + | [facility] | [address] | [place] | [phone] | | [facility] | | [address] | | | - LABORATORY | | [...] | | | | PEPE HERNANDEZ MD ([id number]) | | | | | | on [...] [address] | [place] | [phone] | | [facility] | | [address] | | | - LABORATORY | | [...] + | [facility] | [address] | [place] | [phone] | | [facility] | | [address] | | | - LABORATORY | | [...] + | [facility] | [address] | [place], [place] | [phone] | | [facility] | | [address] | | | - LABORATORY | | [...] | small skin incision was made. 8 Burundian paracentesis needle and sheath | | | [...] A small skin incision was made. 8 Burundian paracentesis | | needle and sheath was [...] [address] | [place] | [phone] | | [facility] | | [address] | | | - LABORATORY | | [...] ST. | [address] | [place] | [phone] | | [facility] | | [address] | | | - LABORATORY | | [...] [address] | [place] | [phone] | | [facility] | | [address] | | | - LABORATORY | | [...] [address] | [place] | [phone] | | [facility] | | [address] | | | - LABORATORY | | [...] ST. | [address] | [place], [place] | [phone] | | [facility] | | [address] | | | - LABORATORY | | [...] [address] | [place] | [phone] | | [facility] | | [address] | | | - LABORATORY | | [...] (L) | 7 - 18 mg/dL | [facility] | | | | | | [facility] | | | | | | MEDICAL | | | | | | CENTER - | | | | | | LABORATORY | | + + + + + + | Creatinine | 0.51 (L) | 0.60 - 1.30 | [facility] | | | | | mg/dL | [facility] | | | | | | MEDICAL | | | | | | CENTER - | | | | | | LABORATORY | | + + + + + + | eGFR, | >60Comment: GLOMERULAR | >=60 | [facility] | | | non- | FILTRATION | mL/min/1.73m2 | [facility] | | | Brazilian | RATE,ESTIMATED | | MEDICAL | | | | mL/min/1.44k1Hczv than | | CENTER - | | [...] ST. | [address] | [place], [place] | [phone] | | [facility] | | [address] | | | - LABORATORY | | [...] ST. | [address] | [place], [place] | [phone] | | [facility] | | [address] | | | - LABORATORY | | [...] [address] | [place] | [phone] | | [facility] | | [address] | | | - LABORATORY | | [...] + | [facility] | [address] | [place] | [phone] | | [facility] | | [address] | | | - LABORATORY | | [...] + | [facility] | [address] | [place], [place] | [phone] | | [facility] | | [address] | | | - LABORATORY | | [...] | Basophils | | K/uL | [facility] | | | | | [...] [address] | [place] | [phone] | | [facility] | | [address] | | | - LABORATORY | | [...] (L) | 7 - 18 mg/dL | [facility] | | | | | | [facility] | | | | | | MEDICAL | | | | | | CENTER - | | | | | | LABORATORY | | + + + + + + | Creatinine | 0.53 (L) | 0.60 - 1.30 | [facility] | | | | | mg/dL | [facility] | | | | | | MEDICAL | | | | | | CENTER - | | | | | | LABORATORY | | + + + + + + | eGFR, | >60Comment: GLOMERULAR | >=60 | [facility] | | | non- | FILTRATION | mL/min/1.73m2 | [facility] | | | Brazilian | RATE,ESTIMATED | | MEDICAL | | | | mL/min/1.13d1Zfiu than | | CENTER - | | [...] + | [facility] | [address] | [place] | [phone] | | [facility] | | [address] | | | - LABORATORY | | [...] ST. | [address] | [place], [place] | [phone] | | [facility] | | [address] | | | - LABORATORY | | [...] - 1.030 | [facility] | | | J[facility], | | | [facility] | | [...] ST. | [address] | [place], [place] | [phone] | | [facility] | | [address] | | | - LABORATORY | | [...] MD | | | | | | ([id number]) on 11/01/2016 | | | | | [...] - 1.030 | [facility] | | | J[facility], | | | [facility] | | [...] [address] | [place] | [phone] | | [facility] | | [address] | | | - LABORATORY | | [...] [address] | [place] | [phone] | | [facility] | | [address] | | | - LABORATORY | | [...] [address] | [place] | [phone] | | [facility] | | [address] | | | - LABORATORY | | [...] [address] | [place] | [phone] | | [facility] | | [address] | | | - LABORATORY | | [...] [address] | [place] | [phone] | | [facility] | | [address] | | | - LABORATORY | | [...] + | [facility] | [address] | [place] | [phone] | | [facility] | | [address] | | | - LABORATORY | | [...] [address] | [place] | [phone] | | [facility] | | [address] | | | - LABORATORY | | [...] [address] | [place] | [phone] | | [facility] | | [address] | | | - LABORATORY | | [...] + | [facility] | [address] | [place], [place] | [phone] | | [facility] | | [address] | | | - LABORATORY | | [...] + | [facility] | [address] | [place] | [phone] | | [facility] | | [address] | | | - LABORATORY | | [...] ST. | [address] | [place] | [phone] | | [facility] | | [address] | | | - LABORATORY | | [...] [address] | [place] | [phone] | | [facility] | | [address] | | | - LABORATORY | | [...] + | [facility] | [address] | [place] | [phone] | | [facility] | | [address] | | | - LABORATORY | | [...] [address] | [place] | [phone] | | [facility] | | [address] | | | - LABORATORY | | [...] (L) | 7 - 18 mg/dL | [facility] | | | | | | [facility] | | | | | | MEDICAL | | | | | | CENTER - | | | | | | LABORATORY | | + + + + + + | Creatinine | 0.59 (L) | 0.60 - 1.30 | [facility] | | | | | mg/dL | [facility] | | | | | | MEDICAL | | | | | | CENTER - | | | | | | LABORATORY | | + + + + + + | eGFR, | >60Comment: GLOMERULAR | >=60 | [facility] | | | non- | FILTRATION | mL/min/1.73m2 | [facility] | | | Brazilian | RATE,ESTIMATED | | MEDICAL | | | | mL/min/1.46o4Ihrd than | | CENTER - | | [...] [address] | [place] | [phone] | | [facility] | | [address] | | | - LABORATORY | | [...] [address] | [place] | [phone] | | [facility] | | [address] | | | - LABORATORY | | [...] PDT | | | | | Starting [facility] 11/02/16 at 1249, | | | [...] PDT | | | | | ONCE, [facility] 11/02/16 at 0100, For 1 | [...] PDT | | | | | ONCE, [facility] 11/02/16 at 1715, For 1 | [...] PDT | | | | | ONCE, [facility] 11/05/16 at 0815, For 1 | | [...] | | | | | Intravenous, ONCE, [facility] 11/06/16 at | | AM PDT [...] 8:34 | | | | | ONCE, [facility] 11/05/16 at 0815, For 1 | | [...] 8:55 | | | | | ONCE, [facility] 11/06/16 at 0900, For 1 | [...] | | | over 4 Hours, ONCE, [facility] 11/01/16 | | | | | | [...] | | | | | Intravenous, ONCE, [facility] 10/31/16 at | | | | [...]
--- OUTSIDE RECORDS SUMMARY | ~2020-01-23 | XMS | Encounter Summary ---
Demographics + + + | Address | [address] | | | [place] [address] | + + + | Home Phone [...] Author + + + | Author | [facility] | | | [facility] [place] | + + + | Organization | [facility] | | | [facility] [place] | + + + | Address | Unknown | + + + | Phone | Unavailable | + + + Support + + + + + | Name | Relationship | Address | Phone | + + + + + | Joanne Pham | ECON | [address] | | | | | [place] | | | | | [address] | | + + + + + | Viktor Son | EDDIE | Unknown | | + + + + + | Edd Gill | ECON | Unknown | | + + + + + | Conner Barber | ECON | Unknown | | + + + + + Care Team Providers + +------+ + | Care Stock Plan Administrator Name | Role | Phone | + +------+ + | Trixie Rose PA-C | PCP | | + +------+ + Encounter Details +--------+ + + + + | Date | Type | Department | Care Team | Description | +--------+ + + + + | 11/17/ | Orders Only | [facility] | Provider, | | | 2018 | | [facility] | MD [address] | | | | | CONVERSION [address]ICKY [address]SA[address] | [place] | | | | | [address] | [place] [address] | | | | | [address] | | | | | | [phone] | | | +--------+ + + + [...]
--- OUTSIDE RECORDS SUMMARY | ~2020-01-23 | XMS | Encounter Summary ---
Demographics + + + | Address | [address] | | | [place] [address] | + + + | Home Phone [...] + | Joanne Pham | ECON | [address] | | | | | [place] | | | | | [address] | | + + + + + | Viktor Son | EDDIE | Unknown | | + + + + + | Edd Gill | ECON | Unknown | | + + + + + | Conner Barber | ECON | Unknown | | + + + + + Care Team Providers + +------+ + | Care Supercharge Repair Supervisor Name | Role | Phone | [...] + + | 03/17/ | Emergency | [facility] | Nathaly, | Urinary tract | | 2015 | | [facility] | Wang Orourke MD [address] | infection without | | | | CENTER [address] | [address] [place] | hematuria, site | | | | [place], [place] | [place] [address] | unspecified (Primary | | | | [address] | [phone] | Dx); Anemia, | | | | [phone] | | unspecified anemia | | | [...] note might be different from the original. [facility] Shaila Son Emergency Department Encounter Note [address] [place] [address] PCP:Doctor Unknown [phone] CHIEF COMPLAINT: Chief Complaint Patient presents with Abdominal Pain Knee Pain R ED Room: ED12/ED12 HPI Shaila Son is a 44 y.o. female who presents to the Emergency Department by ambulance for evaluation. This patient fell one week ago and hit her right knee. She was seen at [facility] and had an evaluation but they report [...] (A) Clear PH UA 5.5 5.0-8.0 Specific [place] <=1.005 1.001-1.030 PROTEIN UA Negative Negative BLOOD [...] of the right knee. There is normal disability insurance claim examiner alization. No visible fracture or dislocation. [...] conveyed to the ordering provider, by the building specialist, immediately following the exam. Dictated and Signed [...] were reviewed along with EMS notes and custodial record s if applicable. (See chart for [...] really does not take anything other than bneb-tso-[id number] medications at this time. I advised her [...] K72.90 572.2 Follow-up Information Follow up with [facility] In 1 week. New Prescriptions TRAMADOL [...] + + | Performing | Address | City/State[facility] | Phone Number | | Organization [...] + | [facility] | [address] | [place] | [phone] | | [facility] | | [address] | | | - LABORATORY | | [...] [address] | [place] | [phone] | | [facility] | | [address] | | | - LABORATORY | | [...] [address] | [place] | [phone] | | [facility] | | [address] | | | - LABORATORY | | [...] + | [facility] | [address] | [place] | [phone] | | [facility] | | [address] | | | - LABORATORY | | [...] [address] | [place] | [phone] | | [facility] | | [address] | | | - LABORATORY | | [...] [address] | [place] | [phone] | | [facility] | | [address] | | | - LABORATORY | | [...] mL/min/1.73m2 | [facility] | | | [place] | RATE,ESTIMATED | | MEDICAL | | | | mL/min/1.00v8Vmuv than | | CENTER - | | [...] [address] | [place] | [phone] | | [facility] | | [address] | | | - LABORATORY | | [...] [address] | [place] | [phone] | | [facility] | | [address] | | | - LABORATORY | | [...] ordering | | | provider, by the building specialist, immediately following the exam. | | | [...] to the ordering provider, by the | |building specialist, immediately following the exam. | | | [...] ST. | [address] | [place] | [phone] | | [facility] | | [address] | | | - LABORATORY | | [...] - 1.030 | [facility] | | | [place], | | | [facility] | | [...] + | [facility] | [address] | [place], [place] | [phone] | | [facility] | | [address] | | | - LABORATORY | | [...]
--- OUTSIDE RECORDS SUMMARY | ~2020-01-23 | XMS | Encounter Summary ---
Demographics + + + | Address | [address] | | | [place] [address] | + + + | Home Phone | | + + + | Preferred Language | Unknown | + + + | Marital Status | Single | + + + | Sikhism Affiliation | 1041 | + + + | Race | or | + + + | Ethnic Group | Not or | + + + Author + + + | Author | [facility] | | | and [place] | + + + | Organization | [facility] | | | and [place] | + + + | Address | Unknown | + + + | Phone | Unavailable | + + + Support + + + + + | Name | Relationship | Address | Phone | + + + + + | Joanne Pham | ECON | [address] | | | | | [place] | | | | | [address] | | + + + + + | Viktor Son | EDDIE | Unknown | | + + + + + | Edd Gill | ECON | Unknown | | + + + + + | Conner Barber | ECON | Unknown | | + + + + + Care Team Providers + +------+ + | 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 Name | Role | Phone [...] | | | ogy | Hepatic | [facility] | Gastroenterol | | | | | failure, | HEALTH | ogy [address] | | | | | unspecified | CENTER | [address] | | | | | without coma | [address] | [place], [place] | | | | | (HCC) End | [facility] | [address] | | | | | stge liver | WAY | Phone: | | | | | disease | [place], | [phone] | | | | | Alcoholic | [place] | Fax: | | | | | cirrhosis of | [address] | [phone] | | | | | liver with | Phone: | | | | | | ascites | [phone] | | | | | | | Fax: | | | | | | | [phone] | | +--------+--------+ + + + + Encounter Details +--------+---------+ + + + | Date | Type | Department | Care Team | Description | +--------+---------+ + + + | 09/08/ | Office | [facility] | Mitchell Stewart | Alcoholic cirrhosis | | 2020 | Visit | GASTROENTEROLOGY | MD Conor [address] | of liver with | | | | [address] | [address]VD [place], [place] | ascites (HCC) | | | | [place], [place] | [address] | (Primary Dx); | | | | [address] | | Ascites due to | | | | [phone] | | alcoholic cirrhosis | | | [...] Stewart MD - 09/09/2019 10:40 AM PDT [facility] Gastroenterology Subjective: Chief Complaint Patient presents with [...] since then other than undergoing paracentesis at [facility] in [facility] on 05/02/2019. She claims no further [...] is currently staying at a facility called [facility] in [facility]. Medications are held for her and provided [...] unable to recall, this information came from [facility] record Ciprofloxacin Anaphylaxis, Other (See Comments), Shortness Of Breath and Rash Other reaction(s): Throat Swelling / Closing Pt. 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 [...] ESOPHAGOGASTRODUODENOSCOPY; Surgeon: Mitchell Stewart IV, MD; Location: [facility]; Service: Gastroenterology; Laterality: N/A; anesthesia assist if available since may be difficult to sedate UPPER GASTROINTESTINAL ENDOSCOPY 08/26/2018 Procedure: ESOPHAGOGASTRODUODENOSCOPY; Surgeon: Mitchell Stewart IV, MD; [facility]; Service: Gastroenterology; Laterality: N/A; Family History [...] file Gets together: Not on file Attends yarsanism service: Not on file Active member of [...] to 4 months. Tod Stewart IV, M.D. [facility] Gastroenterology 09/10/2019 This note was dictated using [employer] voice recognition software. Document was reviewed at ti me of dictation but ambvo-v-orva errors may be present. Please call with any questions or c larifications. TIME: established patient - total direct akfw-fx-olhd time of at least 25 minutes spe [...]
--- OUTSIDE RECORDS SUMMARY | ~2020-01-23 | XMS | Encounter Summary ---
Demographics + + + | Address | [address] | | | [place] [address] | + + + | Home Phone [...] Author + + + | Author | [facility] | | | and [place] | + + + | Organization | [facility] | | | and [place] | + + + | Address | Unknown | + + + | Phone | Unavailable | + + + Support + + + + + | Name | Relationship | Address | Phone | + + + + + | Joanne Pham | ECON | [address] | | | | | [place] | | | | | [address] | | + + + + + | Viktor Son | EDDIE | Unknown | | + + + + + | Edd Gill | ECON | Unknown | | + + + + + | Conner Barber | ECON | Unknown | | + + + + + Care Team Providers + +------+ + | Care Book Coverer Name | Role | Phone | + +------+ + | Trixie Rose PA-C | PCP | | + +------+ + Encounter Details +--------+ + + + + | Date | Type | Department | Care Team | Description | +--------+ + + + + | 08/25/ | Hospital | [facility] | Paulina Wu MD | Hematemesis with | | 2019 - | Encounter | [facility] | [address] | nausea; Alcohol | | | | CARE FLOOR [address] | [place] [address] | withdrawal syndrome | | 09/05/ | | [address] | [phone] | with complication | | 2019 | | [place], [place] | | (HCC); Ascites due | | | | [address] | | to alcoholic | | | | [phone] | | cirrhosis (HCC); | | | [...] MD Service: Hospitalist Author Type: Physician Filed: 10/08/1869 Date of Service: 09/04/18 134 Status: Addendum Package Delivery Room Service Runner: Ha Aguayo MD (Physician) Related Notes: Original Note by Ha Aguayo MD (Physician) filed at 09/04/18 8766 [facility] Service: Hospitalist Discharge Summary Date of [...] and other chronic comorbidities who presents to [facility] from [facility] ER for hematemesis admitted for upper [...] anemia. The patient is to live in [place] with significant other, ambulatory GI refe rral to be provided. The patient is to follow-up with her primary care physician within 1 w [place] after discharge. The patient was able to reiterate what was discussed verbally demonstr ating understanding. All questions answered. Past Medical History Diagnosis Date Anemia Hemorrhage of gastrointestinal tract, unspecified Hypertension Liver disease Seizures (HCC) Past Surgical History Procedure Laterality Date BACK SURGERY ESOPHAGOGASTRODUODENOSCOPY N/A 07/30/2011 Procedure: ESOPHAGOGASTRODUODENOSCOPY; Surgeon: Mitchell Stewart IV, MD; Location: [facility]; Service: Gastroenterology; Laterality: N/A; anesthesia assist if available since may be difficult to sedate ESOPHAGOGASTRODUODENOSCOPY N/A 08/26/2018 Procedure: ESOPHAGOGASTRODUODENOSCOPY; Surgeon: Mitchell Stewart IV, MD; Location: [facility]; Service: Gastroenterology; Laterality: N/A; Hx of tracheostomy Allergies Allergen Reactions Aspirin Anaphylaxis Pt unable to recall, this information came from [facility] record Lactose Anaphylaxis Pt unable to recall, this information came from [facility] record Ciprofloxacin Other (See Comments) Pt. Unable to recall, this information came from [facility] record Ibuprofen Other (See Comments) Pt. Unable to recall, this information came from [facility] record Prescriptions Prior to Admission Medication Sig [...] Visits Requested: 1 Follow up: LAURENCE Membreno [address] [facility] [address] [place] [address] Schedule an appointment as soon as possible [...] | | | | | | | VITAMINS/HEALTH SPA MANAGER) TABS | | | | | [...] (none) Author Type: Registered Nurse Filed: 09/05/18 1051 Date of Service: 09/05/18 100 Status: Addendum Package Delivery Room Service Runner: Jodie Sebastian RN (Registered Nurse) Related Notes: Original Note by Jodie Sebastian RN (Registered Nurse) filed a t 09/05/18 100 CM received a call from [employer] at [facility] stating that the pt's insurance auth has been approved and they are able to accept pt today. CM updated pt's significant other [place] on pt's discharge time per pt request. Disposition: [facility] Transportation: facility to transport @ 1100 All orders, signed AVS, and prescriptions have been faxed All DC paperwork completed Patient and family in agreement with discharge plan Medicare important message (Given or N/A): N/A Jodie Sebastian RN onver miriam Transaction, Provider Unknown - 09/05/2018 5:04 AM PDT Nurse Progress Note by Alba Boss RN at 09/05/18 0502 Author: Alba Boss RN Service: (none) Author Type: Registered Nurse Filed: 09/05/18 1553 Date of Service: 09/05/18 050 Status: Signed Package Delivery Room Service Runner: Alba Boss RN (Registered Nurse) Pt A&O x4, forgetful at times. Lactulose held as pt had multiple BMs on day shift and was h aving diarrhea at start of leather carver. No acute changes overnight, patent midline. Unable [...] Date of Service: 09/04/18 143 Status: Signed Package Delivery Room Service Runner: Jodie Sebastian RN (Registered Nurse) CM discussed discharge planning with pt. Pt is stating that she would prefer to go to a SNF for rehab opposed to Home Health. CM contacted [facility] who states she [facility] run insurance auth and follow up with CM. onver miriam Transaction, Provider Unknown - 09/04/2018 6:31 AM PDT Nurse Progress Note by Chadwick Murdock RN at 09/04/18630 Author: Chadwick Murdock RN Service: (none) Author Type: Registered Nurse Filed: 09/04/18 0633 Date of Service: 09/04/18630 Status: Signed Package Delivery Room Service Runner: Chadwick Murdock RN (Registered Nurse) Pt has been oriented x3, calling appropriately, and no c/o pain. Urine output has been arou nd 400mls. Vital signs have remained stable. Chart has been reviewed. Chadwick Murdock RN . onver miriam Transaction, Provider Unknown - 09/03/2018 7:27 PM PDT Nurse Progress Note by SN Odilia at 09/03/181926 Author: SN Odilia Service: (none) Author Type: Armored Car Messenger Filed: 09/03/181937 Date of Service: 09/03/181926 Status: Signed Package Delivery Room Service Runner: SN Odilia (Armored Car Messenger) Pt abdomen remains distended and soft post [...] Hakeem Gramajo PTA Service: (none) Author Type: Clerical Methods Analyst Filed: 09/03/18 1418 Date of Service: 09/03/18 1336 Status: Signed Package Delivery Room Service Runner: Hakeem Gramajo PTA (Clerical Methods Analyst) PHYSICAL THERAPY TREATMENT NOTE PT Received On: 09/03/18 Reason for Treatment: Deconditioning, LE fracture (GIB, CIWA, recent R tib/fib fx) Requires PT Follow Up: Yes Recommendations: Home Assist, PT Plan Treatment/Interventions: Continue per Primary PT POC Progress: Progressing toward goals Summary Comments: Pt supine in bed when FABRICATION AND LAYOUT CRAFTSMAN arrives, agreeable to therapy. Therapy focused on [...] Date of Service: 09/03/18 1241 Status: Signed Package Delivery Room Service Runner: Rosalinda Sanz RN (Registered Nurse) Pt had paracentesis with no difficulty. Tolerated procedure well. 3L removed. Rosalinda katz RN onver miriam Transaction, Provider Unknown - 09/03/2018 10:06 AM PDT Case Management by Jodie Sebastian RN at 09/03/18 1006 Author: Jodie Sebastian RN Service: (none) Author Type: Registered Nurse Filed: 09/04/18 1212 Date of Service: 09/03/18 1006 Status: Addendum Package Delivery Room Service Runner: Jodie Sebastian RN (Registered Nurse) Related Notes: [...] she is staying with Conner in his correction facility but she is look ing for [...] Date of Service: 09/03/18 0935 Status: Signed Package Delivery Room Service Runner: Ha Aguayo MD (Physician) [facility] Service: Hospitalist Progress Note Hospital Day: LOS: 10 days Post-Op Day: 4 Days Post-Op Procedure: Procedure(s) (LRB): ESOPHAGOGASTRODUODENOSCOPY (N/A) Briefly, 48-year-old female with extensive past medical history most significant for alcoho l abuse, decompensated alcoholic cirrhosis (ascites and esophageal varices status post sachin ng 2010), hypertension and other chronic comorbidities who presents to [facility] from [facility] ER for hematemesis admitted for upper [...] of creatinine change. Pending results will con wind turbine mechanical engineer nephrology consultation. -No contrast-induced imaging identified per [...] 09/03/18642 Date of Service: 09/03/18642 Status: Signed Package Delivery Room Service Runner: Ashley Esposito RN (Registered Nurse) Patient's vitals stable, no acute changes. End of shift audit complete. onver miriam Transaction, Provider Unknown - 09/02/2018 5:17 PM PDT Nurse Progress Note by SN Odilia at 09/02/181716 Author: SN Odilia Service: (none) Author Type: Armored Car Messenger Filed: 09/02/18 1723 Date of Service: 09/02/181716 Status: Signed Package Delivery Room Service Runner: SN Odilia (Armored Car Messenger) Pt has had three loose stools this [...] Therapy Progress Note by Staci Meeks MS CCC-MARKET RESEARCH WORKER at 09/02/185 Author: Staci Meeks MS CCC-MARKET RESEARCH WORKER Service: (none) Author Type: Speech and Language Pat hologist Filed: 09/02/18 1215 Date of Service: 09/02/18 121 Status: Signed Package Delivery Room Service Runner: Staci Meeks MS CCC-MARKET RESEARCH WORKER (Speech and Language Pathologist) BEDSIDE SWALLOW MARKET RESEARCH WORKER Last Visit MARKET RESEARCH WORKER Received On: 09/02/18 Requires MARKET RESEARCH WORKER Follow Up: No Recommendations Liquids Consistency [...] was able to self feed and answer MARKET RESEARCH WORKER's questions, though she did have minimal [...] no restrictions Liquids: Thin liquids: regular consistency MARKET RESEARCH WORKER Ready for Discharge: Yes Swallowing Treatment: [...] of learning [] Refused Staci Meeks MS [facility]-MARKET RESEARCH WORKER 09/02/18 12:15 PM ble Ha may MD - 09/02/2018 8:45 AM PDTFormatting of this note might be different from th e original. Progress Notes by Ha Aguayo MD at 09/02/18 0877 Author: Ha Aguayo MD Service: Hospitalist Author Type: Physician Filed: 09/04/18 1406 Date of Service: 09/02/18 5202 Status: Addendum Package Delivery Room Service Runner: Ha Aguayo MD (Physician) Related Notes: Original Note by Ha Aguayo MD (Physician) filed at 09/02/18 7537 [facility] Service: Hospitalist Progress Note Hospital Day: LOS: 8 days Post-Op Day: 4 Days Post-Op Procedure: Procedure(s) (LRB): ESOPHAGOGASTRODUODENOSCOPY (N/A) Briefly, 48-year-old female with extensive past medical history most significant for alcoho l abuse, decompensated alcoholic cirrhosis (ascites and esophageal varices status post sachin ng 2010), hypertension and other chronic comorbidities who presents to [facility] from [facility] ER for hematemesis admitted for upper [...] of creatinine change. Pending results will con wind turbine mechanical engineer nephrology consultation. -No contrast-induced imaging identified per [...] 09/02/18525 Date of Service: 09/02/18525 Status: Signed Package Delivery Room Service Runner: Ashley Esposito RN (Registered Nurse) Patient's vitals stable, no acute changes. End of shift audit complete. onver miriam Transaction, Provider Unknown - 09/01/2018 5:09 PM PDT Nurse Progress Note by Steve Mancuso RN at 09/01/181708 Author: Steve Mancuso RN Service: (none) Author Type: Registered Nurse Filed: 09/01/18 180 Date of Service: 09/01/181708 Status: Signed Package Delivery Room Service Runner: Druze J Mancuso, RN (Registered Nurse) Pt A&O [...] Date of Service: 09/01/18 1410 Status: Addendum Package Delivery Room Service Runner: Ha Aguayo MD (Physician) Related Notes: Original Note by Ha Aguayo MD (Physician) filed at 09/01/18 1420 [facility] Service: Hospitalist Progress Note Hospital Day: LOS: 7 days Post-Op Day: 4 Days Post-Op Procedure: Procedure(s) (LRB): ESOPHAGOGASTRODUODENOSCOPY (N/A) Briefly, 48-year-old female with extensive past medical history most significant for alcoho l abuse, decompensated alcoholic cirrhosis (ascites and esophageal varices status post sachin ng 2010), hypertension and other chronic comorbidities who presents to [facility] from [facility] ER for hematemesis admitted for upper [...] stable. Per my discussion with the RN (Druze) the patient is more awake alert and [...] 09/01/181113 Date of Service: 09/01/181113 Status: Signed Package Delivery Room Service Runner: Princess Rodrigues RD (Registered Dietitian) 09/01/18 1006 [...] System (Mouth to Rectum) Pt with dysphagia; MARKET RESEARCH WORKER is following. Anthropometrics Weight change Current wt: 66.4 kg, up 1.4 kg from admit. Per I/O's, pt is fluid +5.7 L; wi ll monitor. Biochemical data, medical tests, and procedures reviewed Biochemical data, medical tests, and procedures reviewed Na 147 (H), Cr 1.3 (H) - pt with A KI; Ammonia 94 (H) - receiving lactulose; will monitor. Recommendations Recommended energy needs MARKET RESEARCH WORKER continue to follow and advance diet [...] Note by Ashley Esposito RN at 09/01/18 0534 Author: Ashley Esposito RN Service: (none) Author Type: Registered Nurse Filed: 09/01/1846 Date of Service: 09/01/1845 Status: Signed Package Delivery Room Service Runner: Ashley Esposito RN (Registered Nurse) Patient's vitals stable, no acute changes. End of shift audit complete. onver miriam Transaction, Provider Unknown - 08/31/2018 5:43 PM PDT Nurse Progress Note by Steve Mancuso RN at 08/31/18 0931 Author: Steve Mancuso RN Service: (none) Author Type: Registered Nurse Filed: 08/31/181801 Date of Service: 08/31/181742 Status: Signed Package Delivery Room Service Runner: Steve Mancuso RN (Registered Nurse) Pt A&O [...] 08/31/181758 Date of Service: 08/31/18731 Status: Signed Package Delivery Room Service Runner: Ha Aguayo MD (Physician) [facility] Service: Hospitalist Progress Note Hospital Day: LOS: 6 days Post-Op Day: 4 Days Post-Op Procedure: Procedure(s) (LRB): ESOPHAGOGASTRODUODENOSCOPY (N/A) Briefly, 48-year-old female with extensive past medical history most significant for alcoho l abuse, decompensated alcoholic cirrhosis (ascites and esophageal varices status post sachin ng 2010), hypertension and other chronic comorbidities who presents to [facility] from [facility] ER for hematemesis admitted for upper [...] stable. Per my discussion with the RN (Druze) the patient is more awake alert and [...] The patient is to be discharged to [facility] facility likely to occur on Saturday 09/02 [...] 08/31/18445 Date of Service: 08/31/18445 Status: Signed Package Delivery Room Service Runner: Ahsan Solis RN (Registered Nurse) No acute changes this shift. End of shift audits complete. Ahsan Solis RN onver miriam Transaction, Provider Unknown - 08/30/2018 5:20 PM PDT Nurse Progress Note by Steve Mancuso RN at 08/30/181719 Author: Steve Mancuso RN Service: (none) Author Type: Registered Nurse Filed: 08/30/18 1804 Date of Service: 08/30/181719 Status: Addendum Package Delivery Room Service Runner: Druze J Mancuso, RN (Registered Nurse) Related Notes: [...] Therapy Progress Note by Staci Meeks MS CCC-MARKET RESEARCH WORKER at 08/30/18 1537 Author: Staci Meeks MS CCC-MARKET RESEARCH WORKER Service: (none) Author Type: Speech and Language Pat hologist Filed: 08/30/18 1537 Date of Service: 08/30/187 Status: Signed Package Delivery Room Service Runner: Staci Meeks MS CCC-MARKET RESEARCH WORKER (Speech and Language Pathologist) 08/30/18 1500 MARKET RESEARCH WORKER Last Visit MARKET RESEARCH WORKER Received On 08/30/18 Requires MARKET RESEARCH WORKER Follow Up Unavailable Attempted, pt receiving care from RN. Will re-attempt as census permits. Staci Meeks MS CCC-MARKET RESEARCH WORKER 08/30/18 3:37 PM a Moy MD - 08/30/2018 2:20 PM PDTFormatting of this note might be different from th e original. Progress Notes by Ha Aguayo MD at 08/30/18 1420 Author: Ha Aguayo MD Service: Hospitalist Author Type: Physician Filed: 08/30/181923 Date of Service: 08/30/18 1420 Status: Signed Package Delivery Room Service Runner: Ha Aguayo MD (Physician) [facility] Service: Hospitalist Progress Note Hospital Day: LOS: 5 days Post-Op Day: 4 Days Post-Op Procedure: Procedure(s) (LRB): ESOPHAGOGASTRODUODENOSCOPY (N/A) Briefly, 48-year-old female with extensive past medical history most significant for alcoho l abuse, decompensated alcoholic cirrhosis (ascites and esophageal varices status post sachin ng 2010), hypertension and other chronic comorbidities who presents to [facility] from [facility] ER for hematemesis admitted for upper [...] Author: HANNAH Robertson Service: (none) Author Type: Head Operator Filed: 08/30/18 0531 Date of Service: 08/30/18809 Status: Addendum Package Delivery Room Service Runner: HANNAH Robertson (Head Operator) Related Notes: Original Note by HANNAH Robertson (Head Operator) filed at 08/30/18 8364 Referral sent to [facility] for SNF placement. [facility] [address] [place] [address] Ralph- Admissions CM attempted to reach [facility] at [facility]. A voicemail was left. Per [facility], pt has an insurance that will need authorization. Pt will not be able to discharg e over the weekend. CM on Sunday to follow up with [facility]. [facility] would also like to see how pt is doing on Sunday before accepting or declining pt. HANNAH Robertson erclSaritha DO - 08/29/2018 10:23 PM PDTFormatting of this note might be different from the orig inal. Progress Notes by Saritha Prado DO at 08/29/182222 Author: Saritha Prado DO Service: Hospitalist Author Type: Physician Filed: 08/29/182231 Date of Service: 08/29/182222 Status: Signed Package Delivery Room Service Runner: Saritha Prado DO (Physician) Called by the [...] 0635 Date of Service: 08/29/182158 Status: Signed Package Delivery Room Service Runner: Ahsan Solis RN (Registered Nurse) 2032- pt [...] 08/29/181844 Date of Service: 08/29/181839 Status: Signed Package Delivery Room Service Runner: Concetta Alvarez RN (Registered Nurse) Pt oriented to person, sometimes place and date. CIWA scores 5-16. Ativan given x3. BP elevated throughout shift. PRN labetalol given x1. Current BP is 138/90. Lactulose held d/t diarrhea x3. Currently replacing potassium for level of 3.7. End of shift review complete. CONCETTA ALVAREZ RN onver mirima Transaction, Provider Unknown - 08/29/2018 4:31 PM PDT Case Management by HANNAH Denis at 08/29/18 163 Author: HANNAH Denis Service: (none) Author Type: Head Operator Filed: 08/29/18 1631 Date of Service: 08/29/18 163 Status: Signed Package Delivery Room Service Runner: HANNAH Denis (Head Operator) Discharge planning: Pending clinical course. Family is requesting [facility] if pt is needing a SNF. ana Ott i, MD - 08/29/2018 1:32 PM PDTFormatting of this note might be different fro m the original. Progress Notes by Zana Cho MD at 08/29/18 1332 Author: Zana Cho MD Service: Hospitalist Author Type: Physician Filed: 09/03/18 1520 Date of Service: 08/29/18 1332 Status: Addendum Package Delivery Room Service Runner: Zana Cho MD (Physician) Related Notes: Original Note by Zana Cho MD (Physician) filed at 08/29/18 1441 [facility] Service: Hospitalist Progress Note Hospital Day: [...] hours. No results for input(s): PHART, PO2ART, JRA8RIL, G7PFDUBJ, BEART in the last 168 hours. Recent [...] the original. Progress Notes by Mendy Escobar Sccm Administrator at 08/29/18 1311 Author: Eric Gallegosetic Intern Service: (none) Author Type: Scottie livingston Filed: 08/29/18 1312 Date of Service: 08/29/18 1311 Status: Attested Package Delivery Room Service Runner: Eric Gallegosetic Intern (Registered Dietitian) Cosigner: Jovana farrar RD at 08/29/18 1345 Attestation signed by Jovana Neal RD at 08/29/[address], CD 08/29/18 1052 Subjective Timepoint Admit Pt c/o Pt triggered for screening 2/2 dysphagia. Pt admitted for ETOH withdrawal and upper GI bleed. Pt on CIWA and GI following s/p EGD. MARKET RESEARCH WORKER following, moderate aspiration risk. Pt s [...] Recommended energy needs Continue pureed diet per MARKET RESEARCH WORKER recommendations. Encourage PO intake with 1:1 feed assistance. House trays and supplement ordered, Boost Pudding (alternate ruddy late/vanilla) TID at snack times. Will continue to follow per nutrition protocol. Nutritional Risk Nutritional risk High Follow up date 09/01/18 Mendy Escobar, Sccm Administrator onver miriam Transaction, Provider Unknown - 08/29/2018 4:12 AM PDT Nurse Progress Note by Rosalinda Callahan RN at 08/29/18411 Author: Rosalinda Callahan RN Service: (none) Author Type: Registered Nurse Filed: 08/29/18 0643 Date of Service: 08/29/18411 Status: Addendum Package Delivery Room Service Runner: Rosalinda Callahan RN (Registered Nurse) Related Notes: [...] 08/28/181807 Date of Service: 08/28/181746 Status: Signed Package Delivery Room Service Runner: Concetta Alvarez RN (Registered Nurse) Pt oriented to person and sometimes date. Afebrile. BP elevated throughout shift. PRN labetalol given x1. PIV infiltrated. Midline placed. Per telephone installer, pt had 11 beats of PAT. MD notified. Strip in chart. Magnesium replaced for level of 1.5. Currently replacing potassium for level of 3.3. Max CIWA score was 8. Ativan not given. End of shift review complete. CONCETTA ALVAREZ RN eghan Tate MS CCC-MARKET RESEARCH WORKER - 08/28/2018 4:05 PM PDTFormatting of this note might be different f rom the original. Therapy Progress Note by Meghan Rodriguez MS CCC-MARKET RESEARCH WORKER at 08/28/18 1605 Author: Meghan Rodriguez MS CCC-MARKET RESEARCH WORKER Service: (none) Author Type: Speech and Language Pa thologist Filed: 08/28/18 1606 Date of Service: 08/28/18 1605 Status: Signed Package Delivery Room Service Runner: Meghan Rodriguez MS CCC-MARKET RESEARCH WORKER (Speech and Language Pathologist) 08/28/18 1605 MARKET RESEARCH WORKER Last Visit MARKET RESEARCH WORKER Received On 08/28/18 Requires MARKET RESEARCH WORKER Follow Up On hold (not appropriate d/t mentation) Per MD, pt not appropriate at this time. ST to check back tomorrow. onversio n Transaction, Provider Unknown - 08/28/2018 1:35 PM PDTFormatting of this note might be di fferent from the original. Case Management by Jodie Sebastian RN at 08/28/181334 Author: Jodie Sebastian RN Service: (none) Author Type: Registered Nurse Filed: 08/28/18 3514 Date of Service: 08/28/181334 Status: Signed Package Delivery Room Service Runner: Jodie Sebastian RN (Registered Nurse) CM attended [...] 08/28/181335 Date of Service: 08/28/181331 Status: Addendum Package Delivery Room Service Runner: Zana Cho MD (Physician) Related Notes: Original Note by Zana Cho MD (Physician) filed at 08/28/18 914 [facility] Service: Hospitalist Progress Note Hospital Day: [...] hours. No results for input(s): PHART, PO2ART, ETP7ECY, C2ZEBNTO, BEART in the last 168 hours. Recent [...] 08/28/18699 Date of Service: 08/28/18453 Status: Signed Package Delivery Room Service Runner: Rosalinda Callahan RN (Registered Nurse) Pt disoriented [...] PM PDT Nurse Progress Note by Rosalinda Martniez RN at 08/27/181928 Author: Rosalinda Martinez RN Service: (none) Author Type: Registered Nurse Filed: 08/27/181946 Date of Service: 08/27/181928 Status: Addendum Package Delivery Room Service Runner: Rosalinda Martinez RN (Registered Nurse) Related Notes: [...] Notes by Zana Cho MD at 08/27/18 1938 Author: Zana Cho MD Service: Hospitalist Author Type: Physician Filed: 08/27/18 1200 Date of Service: 08/27/18 7196 Status: Signed Package Delivery Room Service Runner: Zana Cho MD (Physician) [facility] Service: Hospitalist Progress Note Hospital Day: [...] hours. No results for input(s): PHART, PO2ART, HLC5JJV, P2ZATCRG, BEART in the last 168 hours. Recent [...] Date of Service: 08/27/18 1125 Status: Signed Package Delivery Room Service Runner: Erica Venegas PT (Physical Therapist) 08/27/18 1125 [...] Progress Notes by PERNELL Wallace at 08/27/18 0412 Author: PERNELL Wallace Service: Gastroenterology Author Type: Physician Assistan t - Certified Filed: 08/27/18 1214 Date of Service: 08/27/1837 Status: Attested Package Delivery Room Service Runner: PERNELL Wallace (Physician Optician Apprentice - Certified) Cosigner: Mitchell Stewart IV, MD at 08/27/182143 Attestation signed by Mitchell Stewart IV, MD at 08/27/182143 GASTROENTEROLOGY ATTENDING ATTESTATION The advanced practice provider made rounds on this patient. I did not formally evaluate pat ient in person today. We discussed the case and I agree with the assessment and plan as wri jenae. [facility] Service: Gastroenterology Consult Progress Note Hospital Day: LOS: 2 days SUBJECTIVE Patient Summary: Shaila Son is a 48 y.o. female Patient with ongoing alcohol abuse and history of alcohol associated cirrhosis with reporte dly remote variceal band ligation, ascites, episodes of hepatic encephalopathy, previous alc ohol associated seizures and withdrawal syndrome transferred to [facility] due to presenting to [facility] with episodes of coffee-ground emesis and ongoing [...] severe shakes. Alcohol level was elevated at [facility] but obviously not known how high [...] it. Claims she had x-rays done in [place]. Events Overnight: Had EGD and showed portal [...] 08/26/2018 INR 1.2 08/25/2018 INR 1.3 04/10/2016 [facility] GI Patient Name: Shaila SonDania Procedure [...] 08/26/2018 5:27 PM Number of Addenda: 0 [facility] - Endoscopy Services PROBLEM LIST Principal [...] off at this time. Yareli Mckinnon PA-C [facility] Gastroenterology 08/27/2018 onversion Transa ction, Provider Unknown - 08/27/2018 6:00 AM PDT Nurse Progress Note by Sandi Melgar RN at 08/27/18599 Author: Sandi Melgar RN Service: (none) Author Type: Registered Nurse Filed: 08/27/18603 Date of Service: 08/27/18599 Status: Signed Package Delivery Room Service Runner: Sandi Melgar RN (Registered Nurse) Pt A&Ox4, VSS, afebrile. PRN ativan given per CIWA score and orders. Pt has auditory and visual hallucinations at times. Walking boot on to protect foot/leg. 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 ABD remains distended but soft and active [...] 08/26/181809 Date of Service: 08/26/181806 Status: Addendum Package Delivery Room Service Runner: Josie Tovar RN (Registered Nurse) Related Notes: [...] Date of Service: 08/26/18 1639 Status: Signed Package Delivery Room Service Runner: Josie Tovar RN (Registered Nurse) Patient was [...] Date of Service: 08/26/18 1620 Status: Addendum Package Delivery Room Service Runner: Jodie Sebastian RN (Registered Nurse) Related Notes: [...] Vazquez Relationship to Patient boyfriend Phone number [phone] Mental Status Confused Prior functional status needs [...] (TBD) CM contacted pt's brother Viktor Son #[phone] as pt is currently confused and dis cussed discharge planning, per Viktor pt is a 48 y.o., female who lives with her boyfriend Kendal Vazquez #[phone] and he assists in pt's care. Viktor is unsure of pt's housing si tuation or if she has a POA. Pt needs assist with ADL's and uses a walker or wheelchair for ambulation. Pt does not use oxygen or anticoagulation. Patient's PCP is: Ana M Brush Patient's insurance: Medicaid/ [employer] Coverage concerns: no Medication coverage/concerns: no [...] Date of Service: 08/26/18 1533 Status: Signed Package Delivery Room Service Runner: Josie Tovar RN (Registered Nurse) Spoke to [...] Notes by Zana Cho MD at 08/26/18 1350 Author: Zana Cho MD Service: Hospitalist Author Type: Physician Filed: 08/27/18 1149 Date of Service: 08/26/18 1410 Status: Signed Package Delivery Room Service Runner: Zana Cho MD (Physician) Related Notes: Original Note by Zana Cho MD (Physician) filed at 08/26/18 1413 [facility] Service: Hospitalist Progress Note Hospital Day: [...] hours. No results for input(s): PHART, PO2ART, LXD2UBB, D6SQOUAV, BEART in the last 168 hours. Recent [...] Sebastian RN at 08/26/18 1210 Author: Jodie Seabstian RN Service: (none) Author Type: Registered Nurse Filed: 08/26/18 1553 Date of Service: 08/26/18 1210 Status: Signed Package Delivery Room Service Runner: Jodie Sebastian RN (Registered Nurse) Pt is [...] Date of Service: 08/26/18 1205 Status: Signed Package Delivery Room Service Runner: Josie Tovar RN (Registered Nurse) Received a call this AM from Conner Vazquez, this person stated he was caring for patient f or past few months. Per patient, when awake, was able to state that she knew Conner and was ok with information being shared with him. Conner states he has the patients brothers number whom lives in [place], but did not have it on hand. He will call back and give us the number as soon as he can. Biju'ls number are [phone] or [phone]. JOSIE TOVAR RN onver miriam Transaction, Provider Unknown - 08/26/2018 6:18 AM PDT Nurse Progress Note by Sandi Melgar RN at 08/26/18617 Author: Sandi Melgar RN Service: (none) Author Type: Registered Nurse Filed: 08/26/18625 Date of Service: 08/26/18617 Status: Signed Package Delivery Room Service Runner: Sandi Melgar RN (Registered Nurse) Pt A&Ox3, [...] 08/25/181949 Date of Service: 08/25/181946 Status: Signed Package Delivery Room Service Runner: Princess Bower, RN (Registered Nurse) Pt transferred [...] 08/25/181699 Date of Service: 08/25/181699 Status: Signed Package Delivery Room Service Runner: Elida Cruz RPH (Pharmacist) Renal Dosing Monitoring: [...] 08/26/181722 Date of Service: 08/26/181721 Status: Signed Package Delivery Room Service Runner: Mitchell Stewart IV, MD (Physician) [facility] Service: Gastroenterology Service Pre-procedure History & Physical Update Patient Name: Shaila Son Date of Admission: 08/26/2018 On reexamination of the patient and patient's chart today, there are no changes. Moderate Sedation Presedation Assessment completed. ASA Classification: Per Anesthesia Service Mallampati Classification: Per Anesthesia Service Tod Stewart IV, M.D. [facility] Gastroenterology 08/26/2018 aulina Wu M D - 08/25/2018 3:10 PM PDT H&P by Paulina Wu MD at 08/25/181509 Author: Paulina Wu MD Service: Hospitalist Author Type: Physician Filed: 08/25/182135 Date of Service: 08/25/181509 Status: Addendum Package Delivery Room Service Runner: Paulina Wu MD (Physician) Related Notes: Original Note by Paulina Wu MD (Physician) filed at 08/25/181815 [facility] Service: Hospitalist Admission History & Physical [...] s/p banding in 2010, HTN presented to [facility] ED for hematemesis, transferred here for GI [...] and request for transfer was made to [facility] ED. Active comorbid conditions include: [...] ESOPHAGOGASTRODUODENOSCOPY; Surgeon: Mitchell Stewart IV, MD; Location: [facility]; Service: Gastroenterology; Laterality: N/A; anesthesia assist if available since may be difficult to sedate Hx of tracheostomy Allergies Allergen Reactions Aspirin Anaphylaxis Pt unable to recall, this information came from [facility] record Lactose Anaphylaxis Pt unable to recall, this information came from [facility] record Ciprofloxacin Other (See Comments) Pt. Unable to recall, this information came from [facility] record Ibuprofen Other (See Comments) Pt. Unable to recall, this information came from [facility] record Prior to Admission medications Medication Sig [...] original. Procedures by SHANIA Panchal at 09/03/18 2504 Author: SHANIA Panchal Service: Radiology Author Type: Advanced Registered Nurse Sonam buck Filed: 09/03/18 2706 Date of Service: 09/03/18 3235 Status: Signed Package Delivery Room Service Runner: SHANIA Panchal (Advanced Registered Nurse Practitioner) Pre-procedure Diagnoses: 1. Other ascites [R18.8] Post-procedure Diagnoses: 1. Other ascites [R18.8] Procedures: 1. PARACENTESIS [YJH983 (Custom)] Therapeutic and diagnostic ultrasound-guided paracentesis performed at bedside. 3000 mL of clear, yellow fluid removed. Patient tolerated procedure well, vital signs remained stable throughout the procedure. No immediate post procedural complications encountered. See dictation for full details. SHANIA Panchal 09/03/2018 1:03 PM Mitchell Rose MD - 08/26/2018 5:27 PM PDT Procedures signed by at 08/26/18 0773 Author: Mitchell Stewart IV, MD Service: Gastroenterology Author Type: Physician Filed: 08/26/18 5017 Date of Service: 08/26/18 2287 Status: Signed Package Delivery Room Service Runner: Mitchell Stewart IV, MD (Physician) Procedure Orders: 1. EGD [[id number]] ordered by Mitchell Stewart IV, MD at 08/26/18 1650 documented in th is encounter Consult Notes Mitchell Stewart MD - 08/25/2018 4:03 PM PDT Consult* by Mitchell Stewart IV, MD at 08/25/18 1603 Author: Mitchell Stewart IV, MD Service: Gastroenterology Author Type: Physician Filed: 08/25/18 1711 Date of Service: 08/25/18 1603 Status: Signed Package Delivery Room Service Runner: Mitchell Stewart IV, MD (Physician) [facility] Gastroenterology Service Initial Inpatient Consult Note [...] associated seizures and withdrawal syndrome transferred to [facility] due to presenting to [facility] with episodes of coffee-ground emesis and ongoing [...] severe shakes. Alcohol level was elevated at [facility] but obviously not known how high [...] it. Claims she had x-rays done in [place]. Pt being transferred from [facility]. Report from Julio SANDOVAL. Pt arrived there [...] de drip not started prior to leaving [facility] due to limited IV access. Current Vitals: [...] unable to recall, this information came from [facility] record Lactose Anaphylaxis Pt unable to recall, this information came from [facility] record Ciprofloxacin Other (See Comments) Pt. Unable to recall, this information came from [facility] record Ibuprofen Other (See Comments) Pt. Unable to recall, this information came from [facility] record MEDICATIONS: No current facility-administered medications on [...] ESOPHAGOGASTRODUODENOSCOPY; Surgeon: Mitchell Stewart IV, MD; Location: [facility]; Service: Gastroenterology; Laterality: N/A; anesthesia [...] previous pertinent records in her electronic chart [facility] Service: Gastroenterology ENDOSCOPY SUITE PROCEDURE NOTE [...] follow with you. Tod Stewart IV, M.D. [facility] Gastroenterology 08/25/2018 This note was dictated using [employer] voice recognition software. Document was reviewed at ti me of dictation but uafxv-v-tyon errors may be present. Please call with [...] 1353 Date of Service: 08/25/181336 Status: Signed Package Delivery Room Service Runner: Jose Roach RN (Registered Nurse) Pt transferred from [place] ER with low H+H from GI bleed, sequela to ETOH. Pt has weak voice but is A+Ox 3. athes on, Ajay Rice MD - 08/25/2018 1:35 PM PDT ED Provider Notes by Ajay Spear MD at 08/25/18 9148 Author: Ajay Spear MD Service: Emergency Department Author Type: Physician Filed: 08/25/18 6733 Date of Service: 08/25/181334 Status: Signed Package Delivery Room Service Runner: Ajay Spear MD (Physician) Procedure Orders: 1. Critical Care [[id number]] ordered by Paulina Wu MD at 08/25/18 1700 [facility] Department of Emergency Medicine Pre-arrival Provider: [...] modifying factors are reported. Was seen at [facility] for the same and was given a unit of blood and had ascites fluid drawn. Reportedl y had seizures there. Patient also complains of seizures, vomiting, diarrhea, and abdominal pain. Patient denies bloody stools, fever, or any other symptoms at this time. Care FABRICATION AND LAYOUT CRAFTSMAN con sisted of one unit of blood, with moderate relief. Past Medical History Diagnosis Date Anemia Hemorrhage of gastrointestinal tract, unspecified Hypertension Liver disease Seizures (HCC) Past Surgical History Procedure Laterality Date BACK SURGERY ESOPHAGOGASTRODUODENOSCOPY N/A 07/30/2011 Procedure: ESOPHAGOGASTRODUODENOSCOPY; Surgeon: Mitchell Stewart IV, MD; Location: [facility]; Service: Gastroenterology; Laterality: N/A; anesthesia assist [...] unable to recall, this information came from [facility] record Lactose Anaphylaxis Pt unable to recall, this information came from [facility] record Ciprofloxacin Other (See Comments) Pt. Unable to recall, this information came from [facility] record Ibuprofen Other (See Comments) Pt. Unable to recall, this information came from [facility] record Social History Social History Marital status: [...] sore throat CV/Resp: Negative for chest pain, dejkuqywt-bm-rqnekq, cough GI: Positive for hematemesis Positive for [...] reports some generalized abdominal pain. Seen at [facility] where she was evaluated. She had 6L [...] 0.069. 2:24 PM Spoke with RAMÓN Everett transition coach, who is familiar with the pt. Anticipates [...] Value Ref Range Date/Time Type and Screen [[id number]] Collected: 08/25/18 1435 Order Status: Completed Specimen: Blood Updated: 08/25/18 1544 ABO/RH(D) O POSITIVE ANTIBODY SCREEN NEGATIVE ARM BAND NUMBER -- [id number] Testing performed at [facility];[address] [place] [address];[place] [address] Ammonia level [[id number]] Collected: 08/25/18 1407 Order Status: Completed Specimen: Blood Updated: 08/25/18 1441 AMMONIA 32 <33 umol/L Troponin I, Lab [[id number]] (Abnormal) Collected: 08/25/18 1345 Order Status: Completed Specimen: Blood Updated: 08/25/18 1414 TROPONIN I 0.069 (H) 0.00 - 0.04 ng/mL Magnesium [[id number]] (Abnormal) Collected: 08/25/18 1345 Order Status: Completed Specimen: Blood Updated: 08/25/18 1414 MAGNESIUM 1.5 (L) 1.7 - 2.4 mg/dL Blood alcohol level (ethanol) [[id number]] (Abnormal) Collected: 08/25/181344 Order Status: Completed Updated: 08/25/181413 ALCOHOL,ETHYL 59 (H) <10 mg/dL Cardiac Panel [[id number]] (Abnormal) Collected: 08/25/181344 Order Status: Completed Updated: [...] Rhythm- sinus tachycardia Normal P waves, normal MS interval, normal QRS, nonspecific ST and T [...] 08/25/181325 Date of Service: 08/25/181325 Status: Signed Package Delivery Room Service Runner: Alice Murrell RN (Registered Nurse) Bed: 05 Expected date: Expected time: Means of arrival: Comments: Luis E chiu. Alice Murrell RN 08/25/18 1326 onver miriam Transaction, Provider Unknown - 08/25/2018 1:00 PM PDT ED Triage Notes by Alice Murrell RN at 08/25/18 1300 Author: Alice Murrell RN Service: (none) Author Type: Registered Nurse Filed: 08/25/18 1320 Date of Service: 08/25/18 1300 Status: Signed Package Delivery Room Service Runner: Alice Murrell RN (Registered Nurse) Pt being transferred from [facility]. Report from Julio SANDOVAL. Pt arrived there [...] 09/05/1828 Date of Service: 09/05/1828 Status: Signed Package Delivery Room Service Runner: Alba Boss RN (Registered Nurse) Problem: Risk [...] Date of Service: 09/04/18 1528 Status: Signed Package Delivery Room Service Runner: Philipp Sargent RN (Registered Nurse) Elimination Elimination [...] 09/04/18524 Date of Service: 09/04/18524 Status: Signed Package Delivery Room Service Runner: Chadwick Murdock RN (Registered Nurse) Problem: Pain [...] 09/03/181746 Date of Service: 09/03/181746 Status: Signed Package Delivery Room Service Runner: Rosalinda Sanz RN (Registered Nurse) Problem: Elimination [...] 09/03/18310 Date of Service: 09/03/18310 Status: Signed Package Delivery Room Service Runner: Ashley Esposito RN (Registered Nurse) Problem: Safety [...] 09/02/181432 Date of Service: 09/02/181432 Status: Signed Package Delivery Room Service Runner: Rosalinda Sanz RN (Registered Nurse) Problem: Elimination [...] 09/02/18441 Date of Service: 09/02/18441 Status: Signed Package Delivery Room Service Runner: Ashley Esposito RN (Registered Nurse) Problem: Safety [...] 09/01/181707 Date of Service: 09/01/181707 Status: Signed Package Delivery Room Service Runner: Steve Mancuso RN (Registered Nurse) Problem: Safety [...] 09/01/18502 Date of Service: 09/01/18502 Status: Signed Package Delivery Room Service Runner: Ashley Esposito RN (Registered Nurse) Problem: Safety [...] 08/31/181742 Date of Service: 08/31/181742 Status: Signed Package Delivery Room Service Runner: Steve Mancuso RN (Registered Nurse) Problem: Safety [...] by Ahsan Solis RN at 08/31/18130 Author: Ahsna Solis RN Service: (none) Author Type: Registered Nurse Filed: 08/31/18130 Date of Service: 08/31/18130 Status: Signed Package Delivery Room Service Runner: Ahsan Solis RN (Registered Nurse) Problem: Elimination [...] 08/30/181718 Date of Service: 08/30/181718 Status: Signed Package Delivery Room Service Runner: Steve Mancuso RN (Registered Nurse) Problem: Safety [...] 08/30/1844 Date of Service: 08/30/1844 Status: Signed Package Delivery Room Service Runner: Ahsan Solis RN (Registered Nurse) Problem: Discharge [...] 1623 Date of Service: 08/29/181509 Status: Signed Package Delivery Room Service Runner: Erica Venegas PT (Physical Therapist) PHYSICAL THERAPY EVALUATION PT Received On: 08/29/18 Reason for Treatment: Deconditioning, LE fracture (GIB, CIWA, recent R tib/fib fx) Requires PT Follow Up: Yes PT Eval/Reassessment Date: 08/29/18 Recommendations: SNF Equipment Recommended: (TBD) Barriers to Discharge: Physical Deficits Impacting Functional [place], Self-care Defic its Impacting Functional [place], Lack of Family Support/Training (limited help at [...] a 48 y.o. female who presents to [facility] for hematemesis and admitted for GIB and [...] session as able. Prior Function Level of [place]: Assist with functional mobility, Assist with ADLs, [...] minimal assist, With standby assist Low - 94113 Moderate - 09719 High - 45605 History [] no personal factors &/or comorbidities [] 1-2 personal factors &/or comorbiditi es [x] 3 or more personal factors &/or comorbidities Examination [] 1-2 elements [x] 3 elements [] 4 or more elements Clinical Presentation [] stable [x] evolving [] unstable Clinical Decision Making Complexity: [] Low 40189 [x] Moderate 84614 [] High 9 7163 Past Medical History Diagnosis Date Anemia Hemorrhage of gastrointestinal tract, unspecified Hypertension Liver disease Seizures (HCC) lan o f Care - Conversion Transaction, Provider Unknown - 08/29/2018 10:53 AM PDTFormatting of thi s note might be different from the original. Plan of Care by SN Lisa at 08/29/18 105 Author: SN Lisa Service: (none) Author Type: Armored Car Messenger Filed: 08/29/18 1059 Date of Service: 08/29/181052 Status: Signed Package Delivery Room Service Runner: SN Lisa (Armored Car Messenger) Problem: Pain Goal: Patient's pain/discomfort is manageable [...] original. Treatment Plan by Rashid Ryder MS CCC-MARKET RESEARCH WORKER at 08/29/18729 Author: Rashid Ryder MS CCC-MARKET RESEARCH WORKER Service: (none) Author Type: Speech and Language Pat hologist Filed: 08/29/1812 Date of Service: 08/29/18729 Status: Signed Package Delivery Room Service Runner: Rashid Ryder MS CCC-MARKET RESEARCH WORKER (Speech and Language Pathologist) BEDSIDE SWALLOW MARKET RESEARCH WORKER Last Visit MARKET RESEARCH WORKER Received On: 08/29/18 Requires MARKET RESEARCH WORKER Follow Up: Yes Recommendations Liquids Consistency [...] a nd stated understanding. Rashid Ryder MS [facility]-MARKET RESEARCH WORKER lan o f Care - Conversion Transaction, Provider Unknown - 08/28/2018 10:31 PM PDTFormatting of alisha s note might be different from the original. Plan of Care by Rosalinda Callahan RN at 08/28/182230 Author: Rosalinda Callahan RN Service: (none) Author Type: Registered Nurse Filed: 08/28/182230 Date of Service: 08/28/182230 Status: Signed Package Delivery Room Service Runner: Rosalinda Callahan RN (Registered Nurse) Problem: Elimination [...] 08/28/181144 Date of Service: 08/28/181144 Status: Signed Package Delivery Room Service Runner: Concetta Alvarez RN (Registered Nurse) Problem: Fluid [...] 08/27/182301 Date of Service: 08/27/182301 Status: Signed Package Delivery Room Service Runner: Rosalinda Callahan RN (Registered Nurse) Problem: Pain [...] 08/27/181555 Date of Service: 08/27/181555 Status: Signed Package Delivery Room Service Runner: Rosalinda Martinez RN (Registered Nurse) Problem: Safety [...] 08/27/1835 Date of Service: 08/27/1835 Status: Signed Package Delivery Room Service Runner: Sandi Melgar RN (Registered Nurse) Problem: Safety [...] 08/26/181751 Date of Service: 08/26/181751 Status: Signed Package Delivery Room Service Runner: Mitchell Stewart IV, MD (Physician) [facility] Service: Gastroenterology Operative Note Procedure note [...] 08/26/181754 Date of Service: 08/26/181726 Status: Signed Package Delivery Room Service Runner: Mitchell Stewart IV, MD (Physician) Patient Instructions [...] 08/26/181157 Date of Service: 08/26/181157 Status: Signed Package Delivery Room Service Runner: Josie Tovar RN (Registered Nurse) Problem: Safety [...] 08/26/18145 Date of Service: 08/26/18145 Status: Signed Package Delivery Room Service Runner: Sandi Melgar RN (Registered Nurse) Problem: Safety [...] in low and locked position with call yeugn in reach and bed alarm on. Seizure [...] 08/25/181541 Date of Service: 08/25/181541 Status: Signed Package Delivery Room Service Runner: Sharri Leon RPH (Pharmacist) Rx Admission Medication [...] | | | Random | performed at [facility], [address] | | [address] | [address], | | | | | | [place] [address] | | | | + + + [...] LAB | | | | performed at [facility], [address], | | | | | | [place] [address] | | | | + + + [...] EXTERNAL | | | | performed at [facility], [address] | | LAB | | | | [address], | | | | | | [place] [address] | | | | + + + [...] | | | | | | MDRD IDWI traceable | | | | | | equation.Testing | | | | | | performed at [facility], [address] | | | | | | [facility], | | | | | | [place] [address] | | | | + + + [...] EXTERNAL | | | | performed at [facility], [address] | | LAB | | | | [address], | | | | | | [place] [address] | | | | + + + [...] | | | | | | MDRD IDWI traceable | | | | | | equation.Testing | | | | | | performed at [facility], [address] | | | | | | [facility], | | | | | | [place] [address] | | | | + + + [...] 100 Testing | | | performed at [facility];[address] [facility];[place] [address] | | + + + + +---------+ [...] | EXTERNAL LAB | | not a interface analyst validated sample type for this method. No reference | | | ranges have been established. Testing performed at [facility], [address] | | | [place] [address] FLUID TP SOURCE | | | ASCITES FLUID Testing performed at [facility];[address] | | [facility];[place] [address] | | + + + + +---------+ [...] | EXTERNAL LAB | | not a interface analyst validated sample type for this method. No | | | reference ranges have been established. Testing performed at [facility], | | | [address] [place] [address] | | + + + + +---------+ [...] recognition system. The possibility of "sound alike" college tutor | | | errors, addition and/or deletions [...] The | | possibility of "sound alike" college tutor errors, addition and/or deletions may occur. | [...] system. The possibility of "sound a like" college tutor errors, addition and/or deletions may occur. If [...] EXTERNAL | | | | performed at [facility], [address] | | LAB | | | | [address], | | | | | | [place] [address] | | | | + + + [...] | | | Patient | performed at [facility];[address] | | LAB | | | | [address];[place] | | | | | | [address] | | | | + + + [...] | | | | | performed at [facility] [place];[facility] | | | | | | Ambrosio [address]orden;[place] | | | | | | [address] | | | | + + + [...] | | | | | performed at [facility], [address] | | | | | | [facility], | | | | | | [place] [address] | | | | + + + [...] | | | | | [place] [address] | | | | + + + [...] EXTERNAL | | | | performed at [facility], [address] | | LAB | | | | [address], | | | | | | [place] [address] | | | | + + + [...] EXTERNAL | | | | performed at [facility], [address] | | LAB | | | | Katie Borden, | | | | | | [place] [address] | | | | + + + [...] | | | | | performed at [facility], [address] | | | | | | [facility], | | | | | | [place] [address] | | | | + + + [...] | | | Random | performed at [facility], [address] | | | | | [address] Katie [facility], | | | | | | [place] [address] | | | | + + + [...] LAB | | | | performed at [facility], [address] | | | | | | Katie [address]orden, | | | | | | [place] [address] | | | | + + + [...] EXTERNAL | | | | performed at [facility], [address] | | LAB | | | | Katie [address]orden, | | | | | | [place] [address] | | | | + + + [...] EXTERNAL | | | | performed at [facility], [address] | | LAB | | | | Katie [address]orden, | | | | | | [place] [address] | | | | + + + [...] | | | | | performed at [facility], [address] | | | | | | [facility], | | | | | | [place] [address] | | | | + + + [...] LAB | | | | performed at [facility];[address] | | | | | | [address];[place], [place] | | | | | | [address] | | | | + + + [...] | | | | | performed at [facility] [place];[address] | | | | | | [facility];[place], [place] | | | | | | [address] | | | | + + + [...] | | | | | [place] [address] | | | | + + + [...] | | | Reticulocyt | performed at [facility];[address] | | LAB | | | e Count | Rosa [facility];[place], [place] | | | | | | [address] | | | | + + + [...] | | | Basophils | performed at [facility], [address] | K/uL | LAB | | | | [facility], | | | | | | [place] [address] | | | | + + + [...] EXTERNAL | | | | performed at [facility], [address] | | LAB | | | | Katie Borden, | | | | | | [place] [address] | | | | + + + [...] | | | External | performed at [facility], [address] | | LAB | | | | Katie Borden, | | | | | | [place] [address] | | | | + + + [...] | | | | | performed at [facility], [address] | | | | | | [facility], | | | | | | [place] [address] | | | | + + + [...] LAB | | | | performed at [facility];[address] | | | | | | [address];[place], [place] | | | | | | [address] | | | | + + + [...] EXTERNAL | | | | performed at [facility], [address] | | LAB | | | | Katie [address]orden, | | | | | | [place] [address] | | | | + + [...] | | | | | [place] [address] | | | | + + + [...] | | | | | | MDRD IDWI traceable | | | | | | equation.Testing | | | | | | performed at [facility], [address] | | | | | | [facility], | | | | | | [place] [address] | | | | + + + [...] EXTERNAL | | | | performed at [facility];[address] | mmol/L | LAB | | | | [address]ros[address]orden;[place] | | | | | | [address] | | | | + + + [...] | | | | | performed at [facility] [place];[address] | | | | | | [facility];[place], [place] | | | | | | [address] | | | | + + + [...] | | | Basophils | performed at [facility], [address] | K/uL | LAB | | | | [address], | | | | | | [place] [address] | | | | + + + [...] | | | | | | [place] [address] | | | | + + + [...] | | | | | [place] [address] | | | | + + + [...] EXTERNAL | | | | performed at [facility], [address] | | LAB | | | | Katie [address], | | | | | | [place] [address] | | | | + + + [...] EXTERNAL | | | | performed at [facility];[address] | mmol/L | LAB | | | | [address];[place], [place] | | | | | | [address] | | | | + + + [...] EXTERNAL | | | | performed at [facility] [place];[address] | | LAB | | | | [address];[place] | | | | | | [address] | | | | + + + [...] EXTERNAL | | | | performed at [facility] [place];[address] | | LAB | | | | [address];[place], [place] | | | | | | [address] | | | | + + + [...] | | | Basophils | performed at [facility] [place];[address] | K/uL | LAB | | | | [address];[place] | | | | | | [address] | | | | + + + [...] EXTERNAL | | | | performed at [facility], [address] | | LAB | | | | Katie [address]orden, | | | | | | [place] [address] | | | | + + + [...] EXTERNAL | | | | performed at [facility], [address] | | LAB | | | | Katie [address]orden, | | | | | | [place] [address] | | | | + + + [...] W | | | | | | [facility], | | | | | | [place] [address] | | | | + + + [...] | | | Basophils | performed at [facility] [place];[address] | K/uL | LAB | | | | [address];[place], [place] | | | | | | [address] | | | | + + + [...] EXTERNAL | | | | performed at [facility], [address] | | LAB | | | | Katie [address], | | | | | | [place] [address] | | | | + + + [...] EXTERNAL | | | | performed at [facility], [address] | | LAB | | | | Katie [address], | | | | | | [place] [address] | | | | + + + [...] | | | | | performed at [facility], [address] | | | | | | [facility], | | | | | | [place] [address] | | | | + + + [...] + + | Historically converted procedure from [facility] Epic environment | EXTERNAL LAB | | [facility] | | | | | [...] Number of | | | Addenda: 0 [facility] | | | Services [...] EXTERNAL | | | | performed at [facility] [place];[address] | | LAB | | | | [address];[place] | | | | | | [address] | | | | + + + [...] | | | POC | performed at [facility] [place];[address] | | LAB | | | | [address];[place] | | | | | | [address] | | | | + + + [...] EXTERNAL | | | | performed at [facility] [place];[address] | mmol/L | LAB | | | | [address];[place] | | | | | | [address] | | | | + + + [...] EXTERNAL | | | | performed at [facility] [place];[address] | | LAB | | | | [address];[place], [place] | | | | | | [address] | | | | + + + [...] EXTERNAL | | | | performed at [facility] [place];[address] | mmol/L | LAB | | | | [address];[place] | | | | | | [address] | | | | + + + [...] EXTERNAL | | | | performed at [facility] [place];[address] | | LAB | | | | Ambrosio [facility];[place], [place] | | | | | | [address] | | | | + + + [...] | | | Patient | performed at [facility] [place] | | LAB | | | | [address];[place] | | | | | | [address] | | | | + + + [...] | | | | | performed at [facility] [place];[address] | | | | | | [facility];[place], [place] | | | | | | [address] | | | | + + + [...] | | | Basophils | performed at [facility] [place];[address] | K/uL | LAB | | | | [address];[place], [place] | | | | | | [address] | | | | + + + [...] EXTERNAL | | | | performed at [facility], [address] | uIU/mL | LAB | | | | [address], | | | | | | [place] [address] | | | | + + + [...] EXTERNAL | | | | performed at [facility], [address] | | LAB | | | | Katie [address], | | | | | | [place] [address] | | | | + + + [...] | | | | | | MDRD [facility] traceable | | | | | | equation.Testing | | | | | | performed at [facility], [address] | | | | | | [facility], | | | | | | [place] [address] | | | | + + + [...] | | | POC | performed at [facility];[address] | | LAB | | | | [address];[place], [place] | | | | | | [address] | | | | + + + [...] | | | POC | performed at [facility];[address] | | LAB | | | | [address];[place], [place] | | | | | | [address] | | | | + + + [...] EXTERNAL | | | | performed at [facility] [place];[address] | mmol/L | LAB | | | | [address]ros[address] Simon;[place], [place] | | | | | | [address] | | | | + + + [...] EXTERNAL | | | | performed at [facility] [place];[address] | | LAB | | | | [address];[place] | | | | | | [address] | | | | + + + [...] | | | | | ONLY, -COMPUTER (959), | | | | | | 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 Fabiana Morrison | | | | | | (79) on 08/26/2018 | | | | | | 4:05:38 AM | | | | + + + + + + + + | Specimen | + + | | + + + + + | Narrative | Performed At | + + + | [facility] environment | EXTERNAL LAB | + + [...] + + + | BB BAND | [id number] | | EXTERNAL | | | | performed at [facility] [place];8 | | LAB | | | | [address];[place] | | | | | | [address] | | | | + + + [...] EXTERNAL | | | | performed at [facility];[address] | | LAB | | | | [address];[place] | | | | | | [address] | | | | + + + [...] at | | | | | | [facility];[address] [place] [address] | | | | | | [facility];[place] [address] | | | | + + + [...] EXTERNAL | | | | performed at [facility] [place];[address] | | LAB | | | | [address];[place], [place] | | | | | | [address] | | | | + + + [...] | | | Alcohol | performed at [facility];[address] | | LAB | | | | [address];[place], [place] | | | | | | [address] | | | | + + + [...]
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
--- OUTSIDE RECORDS SUMMARY | ~2020-01-23 | XMS | Encounter Summary ---
Demographics + + + | Address | [address] | | | [place] [address] | + + + | Home Phone | | + + + | Preferred Language | Unknown | + + + | Marital Status | Single | + + + | Jehovah'S Witness Affiliation | 1041 | + + + [...] + | Joanne Pham | ECON | [address] | | | | | [place] | | | | | [address] | | + + + + + | Viktor Son | EDDIE | Unknown | | + + + + + | Edd Gill | ECON | Unknown | | + + + + + | Conner Barber | ECON | Unknown | | + + + + + Care Team Providers + +------+ + | Care Career Technology Teacher Name | Role | Phone | [...] | | | ogy | Hepatic | [facility] | Gastroenterol | | | | | failure, | HEALTH | ogy [address] | | | | | unspecified | CENTER | [address] | | | | | without coma | [address] | [place], [place] | | | | | (HCC) End | [facility] | [address] | | | | | stge liver | WAY | Phone: | | | | | disease | JESS[place], | [phone] | | | | | Alcoholic | [place] | Fax: | | | | | cirrhosis of | [address] | [phone] | | | | | liver with | Phone: | | | | | | ascites | [phone] | | | | | | | Fax: | | | | | | | [phone] | | +--------+--------+ + + + + Encounter Details +--------+---------+ + + + | Date | Type | Department | Care Team | Description | +--------+---------+ + + + | 09/08/ | Office | [facility] | Mitchell Stewart | Alcoholic cirrhosis | | 2020 | Visit | GASTROENTEROLOGY | MD Conor [address] | of liver with | | | | [address] | [address] [place], [place] | ascites (HCC) | | | | [place], [place] | [address] | (Primary Dx); | | | | [address] | | Ascites due to | | | | [phone] | | alcoholic cirrhosis | | | [...] Stewart MD - 09/09/2019 10:40 AM PDT [facility] Gastroenterology Subjective: Chief Complaint Patient presents [...] since then other than undergoing paracentesis at [facility] in [facility] on 05/02/2019. She claims no further paracentesis [...] is currently staying at a facility called [facility] in [facility]. Medications are held for her and provided [...] unable to recall, this information came from [facility] record Ciprofloxacin Anaphylaxis, Other (See Comments), Shortness Of Breath and Rash Other reaction(s): Throat Swelling / Closing Pt. 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 Tod Stewart IV, M.D. [facility] Gastroenterology 09/10/2019 This note was dictated using Paladion voice recognition software. Document was reviewed at ti me of dictation but [id number] errors may be present. Please call with any questions or c larifications. TIME: established patient - total direct [id number] time of at least 25 minutes spe [...]
--- OUTSIDE RECORDS SUMMARY | ~2020-01-23 | XMS | Encounter Summary ---
Demographics + + + | Address | [address] | | | [place] [address] | + + + | Home Phone [...] Author + + + | Author | [facility] | | | and [place] | + + + | Organization | [facility] | | | and [place] | + + + | Address | Unknown | + + + | Phone | Unavailable | + + + Support + + + + + | Name | Relationship | Address | Phone | + + + + + | Joanne Pham | ECON | [address] | | | | | [place] | | | | | [address] | | + + + + + | Viktor Son | EDDIE | Unknown | | + + + + + | Edd Gill | ECON | Unknown | | + + + + + | Conner Barber | ECON | Unknown | | + + + + + Care Team Providers + +------+ + | Care Design Maintenance Engineer Name | Role | Phone | + +------+ + PCP | Unavailable | + +------+ + Encounter Details +--------+ + + + + | Date | Type | Department | Care Team | Description | +--------+ + + + + | 10/04/ | Hospital | [facility] | Carmen, | Alcohol withdrawal | | 2015 - | Encounter | [facility] [address] | MD [address] | seizure, | | | | [address] | [address] | uncomplicated (HCC); | | 10/07/ | | [place], [place] | [place] [address] | Urinary tract | | 2014 | | [address] | [phone] | infection with | | | | [phone] | | hematuria, site | | | | | | unspecified; Hepatic | | | | | | encephalopathy | | | | | | ([facility]); Anemia, | | | | | | unspecified anemia | | | | | | type; | | | | | | Thrombocytopenia | | | | | | ([facility]); | | | | | | Lymphocytopenia; | | | | | | Delirium tremens | | | | | | ([facility]); Alcohol | | | | | | abuse; 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 She was transferred to [facility]. She was found to have elevated [...] She was seen by Case Management for [facility] for alcohol dependence. 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 You may get the following medications [...] Note by Flora Seaman RN at 10/07/14 7154 Author: Flora Seaman RN Service: (none) Author Type: Registered Nurse Filed: 10/07/14 1200 Date of Service: 10/07/14 1561 Status: Signed Senior Systems Programmer: Flora Seaman RN (Registered Nurse) Pt. D/C [...] 10/06/14826 Date of Service: 10/06/14817 Status: Signed Senior Systems Programmer: Precious Miller MD (Physician) [facility] Service: Hospitalist Progress Note SUBJECTIVE Patient Summary: 44 y/o F with h/o alcohol dependence, cirrhosis transferred from [facility] on 10/05 with alcohol withdrawl seizure [...] Management by Fortino Argueta RN at 10/05/14 5008 Author: Fortino Argueta RN Service: (none) Author Type: Floor Winder Filed: 10/05/14 5847 Date of Service: 10/05/14 5877 Status: Signed Senior Systems Programmer: Fortino Argueta RN (Floor Winder) Met with Shaila to discuss DC plans. She is planning to go home with her family. She denies home medical equipment, or any outpatient medical services such as dialysis or coumadin cli woody. 10/05/14 6355 Discharge Planning Evaluation Admitting Diagnosis Seizure /ETOH [...] No Prescription Plan Yes Name of Pharmacy [facility] Previous home health equipment No Vascular access device No Ostomy/Drains/Appliances No Anticipated Disposition Facility Type Home Medicare Important Message (DEIDRE) Not applicable Met with: Shaila and discussed discharge planning, Pt is a 44 y.o., female Patient's PCP is: Efra Holguin Patient's insurance: Medicaid and [employer]--she has an appt there . Coverage concerns: [...] 0839 Date of Service: 10/05/1437 Status: Signed Senior Systems Programmer: Yamileth Orozco RN (Registered Nurse) Patient somnolent [...] 10/05/14826 Date of Service: 10/05/14809 Status: Signed Senior Systems Programmer: Jacob Larios MD (Physician) [facility] Service: Hospitalist Progress Note Hospital Day: [...] ago. Apparently today she went to the [facility] and that the last thing she remembers before blacking out. Whe n she recovered consciousness she was in the hospital. Apparently the patient had Blease to seizures and generalized tonic-clonic in nature. The patient did receive Ativan and due to the multiple comorbidities the patient was transfer to [facility] for further management. 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 female Height: 170.2 cm Weight: 61.8 kg CREATININE: 0.82 (10/05/14 0150) Estimated creatinine clearance - 86 mL/min NEUTROPHILS ABS Date Value Ref Range Status 10/05/2014 3.16 1.90 - 7.40 K/uL Final Comment: Testing performed at [facility];[address] [place] [address];[place] [address] Pharmacy dosing for renal function per Dr. [...] Date of Service: 10/05/14 030 Status: Signed Senior Systems Programmer: Deonte Morales MD (Physician) [facility] Service: Hospitalist Admission History & Physical [...] [facility] and that the last thing she remembers before blacking out. Whe n she recovered consciousness she was in the hospital. Apparently the patient had Blease to seizures and generalized tonic-clonic in nature. The patient did receive Ativan and due to the multiple comorbidities the patient was transfer to [facility] for further management. Of n ote [...] ESOPHAGOGASTRODUODENOSCOPY; Surgeon: Mitchell Stewart IV, MD; Location: [facility]; Service: Gastroenterology; Laterality: N/A; anesthesia [...] to recall, this information came from [facility] record (Not in a hospital admission) [...] Value Units Date/Time Blood Culture Set 2 [[id number]] Collected: 10/05/14149 Specimen Information: Blood / Blood Updated: 10/05/14300 Blood Culture Set 1 [[id number]] Collected: 10/05/14149 Specimen Information: Blood / Blood Updated: 10/05/14300 hCG, serum, qualitative [[id number]] Collected: 10/05/14149 Specimen Information: Blood Updated: 10/05/14238 TEST,SERUM NEGATIVE Basic Metabolic Panel [[id number]] (Abnormal) Collected: 10/05/14149 Specimen Information: Blood Updated: 10/05/14238 SODIUM 140 mmol/L POTASSIUM 3.4 (L) mmol/L CHLORIDE 105 mmol/L CO2 24 mmol/L ANION GAP AGAP 14 mmol/L GLUCOSE 99 mg/dL BUN 8 mg/dL CREATININE 0.82 mg/dL BUN/CREAT 9 CALCIUM 8.2 (L) mg/dL EGFR >60 mL/min/1.73m2 CBC with differential [[id number]] (Abnormal) Collected: 10/05/14149 Specimen Information: Blood Updated: [...] BASOPHILS ABS 0.05 K/uL MRSA by PCR [[id number]] Collected: 10/04/14 2352 Specimen Information: Nasopharyngeal / Nares(Nose) Updated: 10/05/14 0111 SOURCE NARES(NOSE) MRSA PCR NEGATIVE labs from [place] shows White blood cell 2.5, hemoglobin [...] who presents with Fever, seizures. Transfer from [facility]. Negative signs of meningismus a t [...] prognosis poor unless Patient stop alcohol use. Balance Wheel Screw Hole Driller consult to see the p atient will [...] Procedures by Ricky BarraganEEG/EP T. at 10/05/14 2924 Author: Ricky BarraganEEG/EP TDania Service: Neurology Author Type: Registered EEG and Evoked Potential Tech Filed: 10/05/14 1348 Date of Service: 10/05/141347 Status: Signed Senior Systems Programmer: Ricky BarraganEEG/EP TDania (Registered EEG and Evoked Potential Tech) Procedure Orders: 1. EEG [[id number]] ordered by Deonte Morales MD at 10/05/14 0343 EEG REPORT Patient: Shaila Son ID: [id number] : 1970 [age]: [age] Gender: Female Height: Weight: Physician: Marjorie Simmons MD Breeding Manager: Juan Referring Physician: Carmen Recording Date: 10/05/2014 [...] 10/05/14318 Date of Service: 10/05/14318 Status: Signed Senior Systems Programmer: Xu Villanueva RN (Registered Nurse) Dr. Raines (hospitalist) at bedside. Xu Villanueva RN 10/05/14318 onver miriam Transaction, Provider Unknown - 10/05/2014 1:44 AM PDT ED Notes by Xu Villanueva RN at 10/05/14143 Author: Xu Villanueva RN Service: Emergency Department Author Type: Registered Nurse Filed: 10/05/14143 Date of Service: 10/05/14143 Status: Signed Senior Systems Programmer: Xu Villanueva RN (Registered Nurse) Lab at bedside Xu Villanueva RN 10/05/14143 onver miriam Transaction, Provider Unknown - 10/05/2014 1:05 AM PDT ED Notes by Xu Villanueva RN at 10/05/14 0105 Author: Xu Villanueva RN Service: Emergency Department Author Type: Registered Nurse Filed: 10/05/14105 Date of Service: 10/05/14104 Status: Signed Senior Systems Programmer: Xu Villanueva RN (Registered Nurse) Lab called [...] 10/04/142343 Date of Service: 10/04/142343 Status: Signed Senior Systems Programmer: Xu Villanueva RN (Registered Nurse) Lab called for blood draw, cultures x2 Xu Villanueva RN 10/04/142343 hitak Leonarda gonzalez DO - 10/04/2014 11:18 PM PDTFormatting of this note might be different from the o riginal. ED Provider Notes by Leonarda Rich DO at 10/04/142317 Author: Leonarda Rich DO Service: Emergency Department Author Type: Physician Filed: 10/06/14 1507 Date of Service: 10/04/142317 Status: Signed Senior Systems Programmer: Leonarda Rich DO (Physician) Procedures Additional Documentation Procedures [facility] Department of Emergency Medicine Pre-arrival Provider: [...] with Seizures Patient presents in transfer from [facility]. She was found down, but with breathing and pulse [place]. Evidently had a seizure. Unknown if she struck her head. She is presently complain ing of a headache. She had 2 more seizures at [facility], was treated with ativan, and has [...] ESOPHAGOGASTRODUODENOSCOPY; Surgeon: Mitchell Stewart IV, MD; Location: [facility]; Service: Gastroenterology; Laterality: N/A; anesthesia [...] to recall, this information came from [facility] record History Social History Marital Status: [...] a lymphocytopenia, H/H 9.7/31.1 [place] [address] - moderate th rombocytopenia CMP Glucose 89, [...] technique. [facility] She requires admission as this appears to be a combination of withdrawals seizures, sepsis, and hepatic encephalopathy. Blood culture s have been drawn, urine culture was done at [facility]. I have ordered vancomycin and cef triaxone for her urinary tract infection. I have discussed the case with Dr. Raines who accepts the patient for admission [facility] the [facility]. I reviewed the results of the diagnostic studies with the patient. Explain ed the reason for admission and the admission process. Explained the admission process and t he reason for admission. Records Reviewed Old medical records. Nursing notes. Patient was seen in the emergency department at [facility] and transferred here. Review of [...] Ref Range Date/Time Blood Culture Set 1 [[id number]] Collected: 10/05/14 0150 Order Status: Completed Updated: 10/06/14834 Specimen Information: Blood / Blood Specimen Description BLOOD SPECIAL REQUESTS LH SPECIAL REQUESTS Result: Testing performed at [facility];[address] [facility];[place] [address] CULTURE NO GROWTH CULTURE Result: Testing performed at [facility], [address] [place] [address] Blood Culture Set 2 [[id number]] Collected: 10/05/14149 Order Status: Completed Updated: 10/06/14834 Specimen Information: Blood / Blood Specimen Description BLOOD SPECIAL REQUESTS RH SPECIAL REQUESTS Result: Testing performed at [facility];[address];[place] [address] CULTURE NO GROWTH CULTURE Result: Testing performed at [facility], [address] [place] [address] hCG, serum, qualitative [[id number]] Collected: 10/05/14149 Order Status: Completed Updated: 10/05/14238 Specimen Information: Blood TEST,SERUM NEGATIVE NEGATIVE Basic Metabolic Panel [[id number]] (Abnormal) Collected: 10/05/14149 Order Status: Completed Updated: [...] EGFR >60 >60 mL/min/1.73m2 CBC with differential [[id number]] (Abnormal) Collected: 10/05/14149 Order Status: Completed Updated: [...] 0.00 - 0.10 K/uL MRSA by PCR [[id number]] Collected: 10/04/14 2352 Order Status: Completed Updated: [...] 05 2014 1:19AM Referring Provider Keri ne: [phone] ID: [id number] Narrative: EXAM: CT HEAD AND [...] Notes by Xu Villanueva RN at 10/04/14 4791 Author: Xu Villanueva RN Service: Emergency Department Author Type: Registered Nurse Filed: 10/04/142250 Date of Service: 10/04/142250 Status: Signed Senior Systems Programmer: Xu Villanueva RN (Registered Nurse) Dr. Rich informed of the pt's fever. Xu Villanueva RN 10/04/142250 onver miriam Transaction, Provider Unknown - 10/04/2014 10:46 PM PDT ED Notes by Xu Villanueva RN at 10/04/142245 Author: Xu Villanueva RN Service: Emergency Department Author Type: Registered Nurse Filed: 10/04/142246 Date of Service: 10/04/142245 Status: Signed Senior Systems Programmer: Xu Villanueva RN (Registered Nurse) Patient placed on cardiac monitoring. cath lab radiology technician called, informed of patient. Xu Villanueva RN 10/04/142246 onver miriam Transaction, Provider Unknown - 10/04/2014 10:29 PM PDT ED Notes by Xu Villanueva RN at 10/04/142228 Author: Xu Villanueva RN Service: Emergency Department Author Type: Registered Nurse Filed: 10/04/142246 Date of Service: 10/04/142228 Status: Signed Senior Systems Programmer: Xu Villanueva RN (Registered Nurse) Patient identifiers [...] 10/04/142226 Date of Service: 10/04/142226 Status: Signed Senior Systems Programmer: Jeremi Cai RN (Registered Nurse) Bed: 12 Expected date: Expected time: Means of arrival: Comments: [facility] transfer onver miriam Transaction, Provider Unknown - 10/04/2014 10:04 PM PDT ED Notes by Jodie Cowan RN at 10/04/142203 Author: Jodie Cowan RN Service: (none) Author Type: Registered Nurse Filed: 10/04/142204 Date of Service: 10/04/142203 Status: Signed Senior Systems Programmer: Jodie Cowan RN (Registered Nurse) Pt stable en route to facility per [facility]. VS: 145/77, 97, 18, 96% on RA Jodie Cowan RN 10/04/142204 onver miriam Transaction, Provider Unknown - 10/04/2014 9:12 PM PDT ED Notes by Prince Anand RN at 10/04/142111 Author: Prince Anand RN Service: (none) Author Type: Registered Nurse Filed: 10/04/142118 Date of Service: 10/04/142111 Status: Signed Senior Systems Programmer: Prince Anand RN (Registered Nurse) Patient was reported by EMS found down at the [facility] in [place]. RN at [facility] the patient has history of seizures, [...] 10/07/14712 Date of Service: 10/07/14712 Status: Signed Senior Systems Programmer: Jelly Moreno RN (Registered Nurse) Call light [...] EXTERNAL | | | | performed at [facility] | | LAB | | | | [address];[place] | | | | | | [address] | | | | + + + [...] EXTERNAL | | | | performed at [facility];[address] | mmol/L | LAB | | | | [address];[place] | | | | | | [address] | | | | + + + + + + | K | 4.1Comment: Testing | 3.5 - 4.9 | EXTERNAL | | | | performed at [facility];[address] | mmol/L | LAB | | | | [address];[place] | | | | | | [address] | | | | + + + + + + | Cl | 108Comment: Testing | 99 - 109 mmol/L | EXTERNAL | | | | performed at [facility];[address] | | LAB | | | | [address];[place] | | | | | | [address] | | | | + + + + + + | CO2 | 20 (L)Comment: Testing | 23 - 32 mmol/L | EXTERNAL | | | | performed at [facility];[address] | | LAB | | | | [address];[place] | | | | | | [address] | | | | + + + + + + | Anion Gap | 13Comment: Testing | 5 - 20 mmol/L | EXTERNAL | | | | performed at [facility];[address] | | LAB | | | | [address];[place] | | | | | | [address] | | | | + + + + + + | Glucose, | 91Comment: Testing | 65 - 99 mg/dL | EXTERNAL | | | Fasting | performed at [facility];[address] | | LAB | | | | [address];[place] | | | | | | [address] | | | | + + + + + + | BUN | 6 (L)Comment: Testing | 8 - 25 mg/dL | EXTERNAL | | | | performed at [facility];[address] | | LAB | | | | [address];[place] | | | | | | [address] | | | | + + + + + + | Creatinine | 0.96Comment: Testing | 0.50 - 1.00 | EXTERNAL | | | | performed at [facility];[address] | mg/dL | LAB | | | | [address];[place] | | | | | | [address] | | | | + + + + + + | BUN/Creatin | 7Comment: Testing | | EXTERNAL | | | ine Ratio | performed at [facility];[address] | | LAB | | | | [address];[place] | | | | | | [address] | | | | + + + + + + | Calcium | 8.3 (L)Comment: Testing | 8.5 - 10.5 | EXTERNAL | | | | performed at [facility];[address] | mg/dL | LAB | | | | [address];[place] | | | | | | [address] | | | | + + + [...] | | | | | | at [facility];[address] | | | | | | [address];[place] [address] | | | | + + + [...] | | performed at [facility], [address] | K/uL | LAB | | | | [address], | | | | | | [place] [address] | | | | + + + + + + | Non- | 3.32 (L)Comment: Testing | 3.70 - 5.10 | EXTERNAL | | | Red Blood | performed at [facility], [address] | M/uL | LAB | | | Cells | [address], | | | | | Counted | [place] [address] | | | | + + + + + + | Hemoglobin | 9.7 (L)Comment: Testing | 11.3 - 15.5 | EXTERNAL | | | | performed at [facility], [address] | g/dL | LAB | | | | [address], | | | | | | [place] [address] | | | | + + + + + + | Hematocrit, | 30.4 (L)Comment: Testing | 34.0 - 46.0 % | EXTERNAL | | | POC | performed at [facility], [address] | | LAB | | | | [address], | | | | | | [place] [address] | | | | + + + + + + | MCV | 91.5Comment: Testing | 80.0 - 100.0 fl | EXTERNAL | | | | performed at [facility], [address] | | LAB | | | | [address], | | | | | | [place], [place] [address] | | | | + + + + + + | MCH | 29.4Comment: Testing | 27.0 - 34.0 pg | EXTERNAL | | | | performed at [facility], [address] | | LAB | | | [address], | | | | | | [place] [address] | | | | + + + + + + | MCHC | 32.1Comment: Testing | 32.0 - 35.5 | EXTERNAL | | | | performed at [facility], [address] | g/dL | LAB | | | | [address], | | | | | | [place] [address] | | | | + + + + + + | RDW-CV | 50.8Comment: Testing | 37 - 53 fl | EXTERNAL | | | | performed at [facility], [address] | | LAB | | | | [address], | | | | | | [place] [address] | | | | + + + + + + | Platelet | 66 (L)Comment: Testing | 150 - 400 K/uL | EXTERNAL | | | Count | performed at [facility], [address] | | LAB | | | Plasma | [address], | | | | | | [place] [address] | | | | + + + + + + | MPV | 9.0Comment: Testing | fl | EXTERNAL | | | | performed at [facility], [address] | | LAB | | | | [address], | | | | | | [place] [address] | | | | + + + [...] EXTERNAL | | | | performed at [facility];[address] | | LAB | | | | [address];[place], [place] | | | | | | [address] | | | | + + + [...] | | | | | [place] [address] | | | | + + + + + + | K | 3.5Comment: Testing | 3.5 - 4.9 | EXTERNAL | | | | performed at [facility], [address] | mmol/L | LAB | | | | [address], | | | | | | [place] [address] | | | | + + + + + + | Cl | 104Comment: Testing | 99 - 109 mmol/L | EXTERNAL | | | | performed at [facility], [address] | | LAB | | | | [address], | | | | | | [place] [address] | | | | + + + + + + | CO2 | 23Comment: Testing | 23 - 32 mmol/L | EXTERNAL | | | | performed at [facility], [address] | | LAB | | | | [address], | | | | | | [place] [address] | | | | + + + + + + | Anion Gap | 8Comment: Testing | 5 - 20 mmol/L | EXTERNAL | | | | performed at [facility], [address] | | LAB | | | [address], | | | | | | [place] [address] | | | | + + + + + + | Glucose, | 100 (H)Comment: Testing | 65 - 99 mg/dL | EXTERNAL | | | Fasting | performed at [facility], [address] | | LAB | | | | [address], | | | | | | [place] [address] | | | | + + + + + + | BUN | 6 (L)Comment: Testing | 8 - 25 mg/dL | EXTERNAL | | | | performed at [facility], [address] | | LAB | | | | [address], | | | | | | [place] [address] | | | | + + + + + + | Creatinine | 0.57Comment: Testing | 0.50 - 1.00 | EXTERNAL | | | | performed at [facility], [address] | mg/dL | LAB | | | | [address], | | | | | | [place] [address] | | | | + + + + + + | BUN/Creatin | 11Comment: Testing | | EXTERNAL | | | ine Ratio | performed at [facility], [address] | | LAB | | | | [address], | | | | | | [place] [address] | | | | + + + + + + | Calcium | 7.9 (L)Comment: Testing | 8.5 - 10.5 | EXTERNAL | | | | performed at [facility], [address] | mg/dL | LAB | | | | [address], | | | | | | [place] [address] | | | | + + + + + + | Protein, | 6.4Comment: Testing | 6.3 - 8.2 g/dL | EXTERNAL | | | Total | performed at [facility], [address] | | LAB | | | | [address], | | | | | | [place] [address] | | | | + + + + + + | Albumin | 2.8 (L)Comment: Testing | 3.6 - 5.0 g/dL | EXTERNAL | | | | performed at [facility], [address] | | LAB | | | | [address], | | | | | | [place] [address] | | | | + + + + + + | Globulin | 3.6Comment: Testing | 1.3 - 4.9 g/dL | EXTERNAL | | | | performed at [facility], [address] | | LAB | | | | [address], | | | | | | [place] [address] | | | | + + + + + + | A/G Ratio | 0.8 (L)Comment: Testing | 1.0 - 2.4 | EXTERNAL | | | | performed at [facility], [address] | | LAB | | | | [address], | | | | | | [place] [address] | | | | + + + + + + | Bilirubin | 1.2Comment: Testing | 0.1 - 1.5 mg/dL | EXTERNAL | | | Total | performed at [facility], [address] | | LAB | | | | [address], | | | | | | [place] [address] | | | | + + + + + + | ALP, | 79Comment: Testing | 35 - 115 U/L | EXTERNAL | | | External | performed at [facility], [address] | | LAB | | | | [address], | | | | | | [place] [address] | | | | + + + + + + | AST | 47 (H)Comment: Testing | 10 - 45 U/L | EXTERNAL | | | | performed at [facility], [address] | | LAB | | | | [address], | | | | | | [place] [address] | | | | + + + + + + | ALT | 18Comment: Testing | 10 - 65 U/L | EXTERNAL | | | | performed at [facility], [address] | | LAB | | | | [address], | | | | | | [place] [address] | | | | + + + [...] | | | at [facility], [address] | | | | | | [address], | | | | | | [place] [address] | | | | + + + [...] | EXTERNAL LAB | | performed at [facility];[address] [facility];[place] [address] 027 NAP1 BI | | | 027 NAP1 BI PRESUMPTIVE NEGATIVE | | | Detection of 027 NAP1 BI strains of C. difficile is presumptive and | | | for epidemiological purposes and not intended to guide or monitor | | | treatment for C. difficile infections. Testing performed at [facility];[address] | | | [facility];[place] [address] | | + + + + +---------+ [...] 7:26AM Referring Provider Line: | | | [phone] ID: [id number] | | + + + + + + | Narrative | Performed At | + + + | EXAM: ABDOMEN ULTRASOUND LIMITED, [facility] EXAM DATE: 10/05/2014 | | [...] 2014 7:26AM Referring Provider Line: | | [phone] ID: [id number] | |COMPARISON: 03/25/2013. | | [...] Oct 05 2014 7:26AM Referring Provider Line: [phone] ID: [id number] | + + Culture, Urine [...] | Testing performed at [facility], [address], | | | [place] [address] | | + + + + +---------+ [...] | | | | | [place] [address] | | | | + + + + + + | RBC, UA | 16-25Comment: Testing | 0 - 5 /hpf | EXTERNAL | | | | performed at [facility], [address] | | LAB | | | | [address] [place], | | | | | | [place] [address] | | | | + + + + + + | Epithelial | 1-5Comment: Testing | /lpf | EXTERNAL | | | Cells | performed at [facility], [address] | | LAB | | | | [place], | | | | | | [place] [address] | | | | + + + [...] [place] | | | | | | [address] | | | | + + + [...] | | | | | [place] [address] | | | | + + + + + + | Clarity, | CLOUDYComment: Testing | | EXTERNAL | | | Urine | performed at [facility], [address] | | LAB | | | | [address], | | | | | | [place] [address] | | | | + + + + + + | Specific | 1.016Comment: Testing | 1.002 - 1.030 | EXTERNAL | | | [place], | performed at [facility], [address] | | LAB | | | Urine | [address], | | | | | | [place] [address] | | | | + + + + + + | Leukocyte | MODERATE (A)Comment: | | EXTERNAL | | | Esterase, | Testing performed at | | LAB | | | Urine | [facility], [address] | | | | | | [place] | | | | | | [address] | | | | + + + + + + | Nitrite, | NEGATIVEComment: Testing | | EXTERNAL | | | Urine | performed at [facility], [address] | | LAB | | | | [address] [place], | | | | | | [place] [address] | | | | + + + + + + | Urobilinoge | 1.0Comment: Testing | mg/dL | EXTERNAL | | | n, Urine | performed at [facility], [address] | | LAB | | | | [place], | | | | | | [place] [address] | | | | + + + + + + | Protein, | 300 (A)Comment: Testing | mg/dL | EXTERNAL | | | Urine | performed at [facility], [address] | | LAB | | | | [place], | | | | | | [place] [address] | | | | + + + + + + | pH, Urine | 7.5Comment: Testing | 5.0 - 8.0 | EXTERNAL | | | | performed at [facility], [address] | | LAB | | | | [place], | | | | | | [place] [address] | | | | + + + + + + | Blood, | LARGE (A)Comment: | | EXTERNAL | | | Urine | Testing performed at | | LAB | | | | [facility], [address] [facility] | | | | | | [place] | | | | | | [address] | | | | + + + + + + | Ketones | NEGATIVEComment: Testing | mg/dL | EXTERNAL | | | | performed at [facility], [address] | | LAB | | | | [address], | | | | | | [place] [address] | | | | + + + + + + | Bilirubin, | NEGATIVEComment: Testing | | EXTERNAL | | | Urine | performed at [facility], [address] | | LAB | | | | [address], | | | | | | [place] [address] | | | | + + + + + + | Glucose, | NEGATIVEComment: Testing | mg/dL | EXTERNAL | | | Urine | performed at [facility], [address] | | LAB | | | | [address], | | | | | | [place] [address] | | | | + + + [...] RH | | | Testing performed at [facility];[address] | | | [address];[place] [address] CULTURE | | | NO GROWTH | | | Testing performed at [facility], [address] [facility] | | | [address] | | + + + + +---------+ [...] LH | | | Testing performed at [facility];[address] | [address];[place] [address] CULTURE | | | NO GROWTH | | | Testing performed at [facility], [address] [facility] [address] [facility], [place], [place] | | | [address] | | + + + + +---------+ [...] | | | Patient | performed at [facility];[address] | | LAB | | | [address];[place], [place] | | | | | | [address] | | | | + + + [...] | | | | | performed at [facility] | | | | | | [address];[place], [place] | | | | | | [address] | | | | + + + [...] EXTERNAL | | | | performed at [facility];[address] | K/uL | LAB | | | | [address];[place] | | | | | | [address] | | | | + + + + + + | Non- | 3.38 (L)Comment: Testing | 3.70 - 5.10 | EXTERNAL | | | Red Blood | performed at [facility];[address] | M/uL | LAB | | | Cells | [address];[place] | | | | | Counted | [address] | | | | + + + + + + | Hemoglobin | 10.1 (L)Comment: Testing | 11.3 - 15.5 | EXTERNAL | | | | performed at [facility];[address] | g/dL | LAB | | | | [address];[place] | | | | | | [address] | | | | + + + + + + | Hematocrit, | 30.5 (L)Comment: Testing | 34.0 - 46.0 % | EXTERNAL | | | POC | performed at [facility];[address] | | LAB | | | | [address];[place] | | | | | | [address] | | | | + + + + + + | MCV | 90.4Comment: Testing | 80.0 - 100.0 fl | EXTERNAL | | | | performed at [facility];[address] | | LAB | | | | [address];[place] | | | | | | [address] | | | | + + + + + + | MCH | 29.9Comment: Testing | 27.0 - 34.0 pg | EXTERNAL | | | | performed at [facility];[address] | | LAB | | | | [address];[place] | | | | | | [address] | | | | + + + + + + | MCHC | 33.1Comment: Testing | 32.0 - 35.5 | EXTERNAL | | | | performed at [facility];[address] | g/dL | LAB | | | | [address];[place] | | | | | | [address] | | | | + + + + + + | RDW-CV | 51.6Comment: Testing | 37 - 53 fl | EXTERNAL | | | | performed at [facility];[address] | | LAB | | | | [address];[place] | | | | | | [address] | | | | + + + + + + | Platelet | 62 (L)Comment: Testing | 150 - 400 K/uL | EXTERNAL | | | Count | performed at [facility];[address] | | LAB | | | Plasma | [address];[place] | | | | | | [address] | | | | + + + + + + | MPV | 8.5Comment: Testing | fl | EXTERNAL | | | | performed at [facility];[address] | | LAB | | | | [address];[place] | | | | | | [address] | | | | + + + + + + | Differentia | AUTOMATEDComment: | | EXTERNAL | | | l Type | Testing performed at | | LAB | | | | [facility];[address] | | | | [address];[place] [address] | | | | + + + + + + | % Segmented | 77.06Comment: Testing | % | EXTERNAL | | | | performed at [facility];[address] | | LAB | | | Neutrophils | [address];[place] | | | | | | [address] | | | | + + + + + + | % | 8.17Comment: Testing | % | EXTERNAL | | | Lymphocytes | performed at [facility];[address] | | LAB | | | | [address];[place] | | | | | | [address] | | | | + + + + + + | % Monocytes | 13.35Comment: Testing | % | EXTERNAL | | | | performed at [facility];[address] | | LAB | | | | [address];[place] | | | | | | [address] | | | | + + + + + + | % | 0.16Comment: Testing | % | EXTERNAL | | | Eosinophils | performed at [facility];[address] | | LAB | | | | [address];[place] | | | | | | [address] | | | | + + + + + + | % Basophils | 1.26Comment: Testing | % | EXTERNAL | | | | performed at [facility];[address] | | LAB | | | | [address];[place] | | | | | | [address] | | | | + + + + + + | Absolute | 3.16Comment: Testing | 1.90 - 7.40 | EXTERNAL | | | Segmented | performed at [facility];[address] | K/uL | LAB | | | Neutrophils | [address];[place] | | | | | | [address] | | | | + + + + + + | Absolute | 0.34 (L)Comment: Testing | 1.00 - 3.90 | EXTERNAL | | | Lymphocytes | performed at [facility];[address] | K/uL | LAB | | | | [address];[place] | | | | | | [address] | | | | + + + + + + | Absolute | 0.55Comment: Testing | 0.00 - 0.80 | EXTERNAL | | | Monocytes | performed at [facility];[address] | K/uL | LAB | | | | [address];[place] | | | | | | [address] | | | | + + + + + + | Absolute | 0.01Comment: Testing | 0.00 - 0.50 | EXTERNAL | | | Eosinophils | performed at [facility];[address] | K/uL | LAB | | | | [address];[place] | | | | | | [address] | | | | + + + + + + | Absolute | 0.05Comment: Testing | 0.00 - 0.10 | EXTERNAL | | | Basophils | performed at [facility];[address] | K/uL | LAB | | | | [address];[place] | | | | | | [address] | | | | + + + [...] | | | QUALITATIVE | performed at [facility] | | LAB | | | | [address];[place], [place] | | | | | | [address] | | | | + + + [...] EXTERNAL | | | | performed at [facility] | | LAB | | | | [facility], [place] | | | | | | [address] | | | | + + + [...] EXTERNAL | | | | performed at [facility];[address] | | LAB | | | | [address];[place] | | | | | | [address] | | | | + + + [...] EXTERNAL | | | | performed at [facility];[address] | mmol/L | LAB | | | | [address];[place] | | | | | | [address] | | | | + + + + + + | K | 3.4 (L)Comment: Testing | 3.5 - 4.9 | EXTERNAL | | | | performed at [facility];[address] | mmol/L | LAB | | | | [address];[place] | | | | | | [address] | | | | + + + + + + | Cl | 105Comment: Testing | 99 - 109 mmol/L | EXTERNAL | | | | performed at [facility];[address] | | LAB | | | | [address];[place] | | | | | | [address] | | | | + + + + + + | CO2 | 24Comment: Testing | 23 - 32 mmol/L | EXTERNAL | | | | performed at [facility];[address] | | LAB | | | | [address];[place] | | | | | | [address] | | | | + + + + + + | Anion Gap | 14Comment: Testing | 5 - 20 mmol/L | EXTERNAL | | | | performed at [facility];[address] | | LAB | | | | [address];[place] | | | | | | [address] | | | | + + + + + + | Glucose, | 99Comment: Testing | 65 - 99 mg/dL | EXTERNAL | | | Fasting | performed at [facility];[address] | | LAB | | | | [address];[place] | | | | | | [address] | | | | + + + + + + | BUN | 8Comment: Testing | 8 - 25 mg/dL | EXTERNAL | | | | performed at [facility];[address] | | LAB | | | | [address];[place] | | | | | | [address] | | | | + + + + + + | Creatinine | 0.82Comment: Testing | 0.50 - 1.00 | EXTERNAL | | | | performed at [facility];[address] | mg/dL | LAB | | | | [address];[place] | | | | | | [address] | | | | + + + + + + | BUN/Creatin | 9Comment: Testing | | EXTERNAL | | | ine Ratio | performed at [facility];[address] | | LAB | | | | [address];[place] | | | | | | [address] | | | | + + + + + + | Calcium | 8.2 (L)Comment: Testing | 8.5 - 10.5 | EXTERNAL | | | | performed at [facility];[address] | mg/dL | LAB | | | | [address];[place] | | | | | | [address] | | | | + + + [...] | | | | | | at [facility];[address] | | | | [address];[place] [address] | | | | + + + [...] MD on Sep 1:19AM Referring Provider Line: [phone] ID: [id number] | | + + + [...] | | 2014 1:19AM Referring Provider Line: [phone] ID: [id number] | | | |Bones: No [...] 05 2014 1:19AM Referring Provider Keri ne: [phone] ID: [id number] | + + MRSA NAAT (10/04/2014 11:52 PM PDT) + + | Specimen | + + | | + + + + + | Narrative | Performed At | + + + | [facility](NOSE) MRSA | EXTERNAL LAB | | PCR NEGATIVE Testing | | | performed at [facility];[address] [place] [address];[place] [address] | | + + + + +---------+ [...]
--- OUTSIDE RECORDS SUMMARY | ~2020-01-23 | XMS | Encounter Summary ---
Demographics + + + | Address | [address] | | | [place] [address] | + + + | Home Phone [...] + | Joanne Pham | ECON | [address] | | | | | [place] | | | | | [address] | | + + + + + | Viktor Son | EDDIE | Unknown | | + + + + + | Edd Gill | ECON | Unknown | | + + + + + | Conner Barber | ECON | Unknown | | + + + + + Care Team Providers + +------+ + | Care Bank Advisor Name | Role | Phone | + +------+ + PCP | Unavailable | + +------+ + Encounter Details +--------+ + + + + | Date | Type | Department | Care Team | Description | +--------+ + + + + | 07/27/ | Hospital | [facility] | Lasha Márquez | GI bleed; Seizure | | 2011 - | Encounter | [facility] | MD [address] | ([facility]); Alcohol | | | | CLINICAL DECISION | IRMA JEAN | withdrawal ([facility]); | | 07/30/ | | [address] | [address] | Blood loss anemia; | | 2011 | | [place], [place] | [place] [address] | Fever; | | | | [address] | [phone] | Thrombocytopenia | | | | [phone] | | ([facility]); Elevated | | | | | | [...] Summaries by Dalia Oakes MD at 07/31/11 3156 Author: Dalia Oaeks MD Service: Hospitalist Author Type: Physician Filed: 07/31/111118 Date of Service: 07/31/111105 Status: Signed Outsole Paraffiner: Dalia Oakes MD (Physician) Related Notes: Original Note by Dalia Oakes MD (Physician) filed at 07/31/11 111 [facility] Service: Hospitalist Physician Discharge Summary Patient ID: Shaila Son [id number] 41 y.o. 1970 Admit date: 07/28/2011 Discharge [...] of alcoholism who [facility]l [facility]x of seizure, according to patient she was in usual state of healt until earlier that day when she was witnessed by her aunt that she might had seizure with decreasing level of conciusness, her aunt called EMS who brought her to [facility] where she was evaluated and suspected to have possible alcohol withdrawal seizur e, in that hospital she had vomiting with blood. The physician contacted Dr. Griffith gastroent erologist to transfer patient to [facility] for possible need of endoscopy on urgent [...] with her primary care physician at [facility]. 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 Pt states that she has others she can try to linda l for a ride, pt has a phone voucher with 75 minutes on it... Pt also has a brother that morgan es in [place] however pt states she does not want to call him... JAIME Lin stated that pts s ister had called earlier and stated that [facility] paid for her way home with a [...] 1336 Date of Service: 07/31/111328 Status: Signed Outsole Paraffiner: Riley Charles RN (Registered Nurse) Patient states [...] 07/31/11830 Date of Service: 07/31/11830 Status: Signed Outsole Paraffiner: Carlos Nevarez RPH (Pharmacist) Vancomycin day 3, [...] 0.7 0.6-1.2 (mg/dL) Final Testing performed at [facility];[address] [facility];[place] [address] CREATININE: 0.7 (07/28/11 2312) Estimated creatinine clearance - Cockcroft-Gault CrCl: 103.2 mL/min INDICATION: Fever; Empiric Treatment Will begin Vancomycin 1000 mg (16.3 mg/kg) IV Q12H. Level due 07/30 at 0500; goal 10 to 20 mcg/ml. Pharmacy will continue to monitor for changes in renal function and adjust accordingly. Devin Lynn, KylieD 07/29/2011 4:13 AM Jigna Lpoez MD - 07/30/2011 12:31 PM PDTFormatting of this note might be different from the o riginal. Progress Notes by Dalia Oakes MD at 07/30/11 1231 Author: Dalia Oakes MD Service: Hospitalist Author Type: Physician Filed: 07/30/11 1236 Date of Service: 07/30/11 1231 Status: Signed Outsole Paraffiner: Dalia Oakes MD (Physician) [facility] Service: Hospitalist Progress Note Shaila Son 41 y.o. [id number] 309/309-2 female BRANDI LEONARDO MD, MD Hospital [...] 1142 octreotide (SANDOSTATIN) infusion 25 mcg/hr (07/29/11 6958) pantoprozole (PROTONIX) infusion 8 mg/hr (07/30/11 3646) PRN Medications acetaminophen, acetaminophen, lorazepam, lorazepam, ondansetron, [...] 124* 65-99 (mg/dL) Final Testing performed at [facility];[address] [facility];[place] [address] CBC: Lab Results Component Value Date WBC [...] Date of Service: 07/30/11 1002 Status: Signed Outsole Paraffiner: Mitchell Griffith IV, MD (Physician) [facility] Service: Gastroenterology Progress Note Hospital [...] 1901 octreotide (SANDOSTATIN) infusion 25 mcg/hr (07/29/11 2428) pantoprozole (PROTONIX) infusion 8 mg/hr (07/30/11 2177) PRN Medications acetaminophen, acetaminophen, lorazepam, lorazepam, ondansetron, [...] history of varices per ED physician from [facility] and mild hematemesis this am per [...] Service: Hospitalist Author Type: Physician Filed: 07/29/11 0620 Date of Service: 07/29/11 8429 Status: Signed Outsole Paraffiner: Dalia Oakes MD (Physician) [facility] Service: Hospitalist Progress Note Shaila Son 41 y.o. [id number] 309/309-2 female BRANDI LEONARDO MD, MD Hospital [...] 145* 65-99 (mg/dL) Final Testing performed at [facility];[address] [place] [address] CBC: Lab Results Component Value Date WBC [...] Date of Service: 07/29/11 1151 Status: Signed Outsole Paraffiner: Mitchell Griffith IV, MD (Physician) [facility] Service: Gastroenterology Progress Note Hospital [...] history of varices per ED physician from [facility] and mild hematemesis this am per [...] 07/29/11412 Date of Service: 07/29/11412 Status: Signed Outsole Paraffiner: Devin Lynn RPH (Pharmacist) Clinical Pharmacy Note: Pharmacy Dosing Vancomycin; Day 1 Shaila Huy 41 y.o. female Ht Readings from Last 1 Encounters: 07/29/11 1.702 m (5' 7") Wt Readings from Last 1 Encounters: 07/29/11 61.2 kg (134 lb 14.7 oz) CREATININE Date Value Range Status 07/28/2011 0.7 0.6-1.2 (mg/dL) Final Testing performed at [facility];[address] [place] [address];[place] [address] CREATININE: 0.7 (07/28/11 2312) Estimated creatinine clearance [...] 1409 Date of Service: 07/30/111406 Status: Signed Outsole Paraffiner: Mitchell Griffith IV, MD (Physician) [facility] Service: Gastroenterology Service Pre-procedure History [...] 0128 Date of Service: 07/29/11106 Status: Signed Outsole Paraffiner: Lasha Márquez MD (Physician) [facility] Service: Hospitalist Admission History & [...] of alcoholism who initiall y presents to [facility] with Hx of seizure, according to patient she was in usual s peoples of healt until earlier today when she was witnessed by her aunt that she might have sei zure with decreasing level of conciusness, her aunt called EMS [facility] and suspected to have possible alcohol withdrawal seizure, wh ere t=in that hospital she has vomiting with blood in vomitus. The physician contacted dr anderson her gastroeneterologist in [facility] who has suggested to transfer patient to [facility] for p ossible need of endoscopy on [...] Date/Time Type and crossmatch x 2 units [[id number]] Collection: 07/28/112311 Resulted: 07/29/1117 Specimen Type: Blood ARM BAND NUMBER [id number] ARM BAND NUMBER Result: Testing performed at [facility];[address] [facility];[place] [address] ABO/RH(D) O POSITIVE ABO/RH(D) Result: Testing performed at [facility];[address] [place] [address] ANTIBODY SCREEN NEGATIVE ANTIBODY SCREEN Result: Testing performed at [facility];[address] [place] [address] UNIT NUMBER [id number] BLOOD COMPONENT TYPE Result: LEUKODEPLETED PC UNIT DIVISION 00 STATUS OF UNIT ALLOCATED TRANSFUSION STATUS Result: OK TO TRANSFUSE CROSSMATCH RESULT COMPATIBLE UNIT NUMBER [id number] BLOOD COMPONENT TYPE Result: LEUKODEPLETED PC UNIT DIVISION 00 STATUS OF UNIT ALLOCATED TRANSFUSION STATUS Result: OK TO TRANSFUSE CROSSMATCH RESULT COMPATIBLE Alcohol, Ethyl [[id number]] Collection: 07/28/112311 Resulted: 07/29/11 0014 ALCOHOL,ETHYL <3 mg/dL CBC with differential [[id number]] Abnormal Collection: 07/28/112311 Resulted: 07/28/112351 Specimen Type: [...] Result: NORMAL RBC MORPH Comprehensive metabolic panel [[id number]] Abnormal Collection: 07/28/112311 Resulted: 07/28/112338 Specimen Type: [...] ALT 22 U/L EGFR >60 mL/min/1.73m2 Amylase [[id number]] Abnormal Collection: 07/28/112311 Resulted: 07/28/112338 Specimen Type: Blood Specimen Source: Arm, Right AMYLASE 321 U/L H Lipase [[id number]] Collection: 07/28/112311 Resulted: 07/28/112338 Specimen Type: Blood Specimen Source: Arm, Right LIPASE 90 U/L aPTT [[id number]] Collection: 07/28/112311 Resulted: 07/28/112332 Specimen Type: Blood Specimen Source: Arm, Right APTT 32 seconds Protime [[id number]] Collection: 07/28/112311 Resulted: 07/28/112331 Specimen Type: Blood [...] Date of Service: 04/21/12 0051 Status: Signed Outsole Paraffiner: Mitchell Griffith IV, MD (Physician) [facility] Service: Gastroenterology Initial Consult Note Date of Admission: 07/28/2011 Reason for Consultation: Alcoholic, vomited blood, history remotely of varices Requesting Physician: Dr. Greenfield, Emergency Department History Obtained From: patient CHIEF COMPLAINT: Seizure this morning, threw up blood this am HISTORY OF PRESENT ILLNESS The patient is a 41 y.o. female with significant past medical history of chronic alcoholism who presented to [facility] with seizure this am after missing alcohol - "ran out" - deve maryd limited episode of hematemesis this evening and do to remote history of varices transf erred here for further management. Denies melena, reflux, weight loss. Has "an ulcer" based on chronic epigastric pain. DT about 5 years ago when went to retirement. No dysphagia. Fever note d on ED [...] file. 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 No [...] history of varices per ED physician from [facility] facility and mild hematemesis this am [...] 07/29/1133 Date of Service: 07/29/1132 Status: Signed Outsole Paraffiner: Liberty Gonzáles RN (Registered Nurse) hospitalist at bedside Liberty Gonzáles RN 07/29/1133 onver miriam Transaction, Provider Unknown - 07/28/2011 11:42 PM PDT ED Notes by Clarissa Eckert at 07/28/112341 Author: Clarissa Eckert Service: (none) Author Type: (none) Filed: 07/28/112343 Date of Service: 07/28/112341 Status: Signed Outsole Paraffiner: Clarissa Eckert (Balance Wheel Screw Hole Tapper) Dr Arnold's answering service called, Dr Jackson is corporate consultant and responded. onver miriam Transaction, Provider Unknown - 07/28/2011 11:27 PM PDT ED Notes by Madelyn Rodgers RN at 07/28/112326 Author: Madelyn Rodgers RN Service: (none) Author Type: Registered Nurse Filed: 07/28/112327 Date of Service: 07/28/112326 Status: Signed Outsole Paraffiner: Madelyn Rodgers RN (Registered Nurse) Critical result [...] 07/30/111943 Date of Service: 07/28/112247 Status: Signed Outsole Paraffiner: Geovanny Greenfield DO (Physician) [facility] Department of Emergency Medicine 07/28/2011 History of Present Illness Patient Identification Shaila Son is a 41 y.o. female. Patient information was obtained from patient. History/Exam limitations: none. Patient presented to the Emergency Department by: Ambulance BRANDI LEONARDO MD, MD Chief Complaint Chief Complaint Patient presents with GI Bleeding Transfer from [facility] 22:48. Pt presents to the ED after seizure that occurred today. Seizure occurred at home an d pt went to [facility] for evaluation. She does have history of seizures. Onset of sympt oms was abrupt. Pt had an episode of coffee ground emesis while she was admitted at [facility] and was transferred here for further treatment [...] at home an d pt went to [facility] for evaluation. She does have history of seizures. Pt had an epis ode of coffee ground emesis there and was transferred here. H&H were also low as described i n HPI. On initial vital signs pt is tachycardic, febrile, and hypertensive. 22:51. Reviewed chart from [facility]. HGB of 9.3 and HCT of 27.6. Platelet count of 40. Pt was started on Octreotide bolus and was given 80 mg of Protonix at [facility]. Pt did have a seizure there in the ER and was given 1 mg of Ativan. 23:12. Will order EKG, INR, PTT, amylase, lipase, CBC, CMP, UDS, and etoh level. Will also order IV fluids. 23:35. Will place call to corporate consultant GI. 23:40. Reviewed lab results. Hypocalcemia. Amylase [...] notes. No prior ED visits. Chart from [facility] Laboratory Evaluation Results Procedure Component Value Ref Range Flag Date/Time Urine Microscopic [[id number]] Abnormal Collection: 04/21/12 0031 Order Status: Completed Resulted: 07/29/117 Specimen Type: Urine WBC 6-10 0 - 5 /hpf RBC 26-50 0 - 2 /hpf EPITHELIAL 26-50 /lpf BACTERIA 4+ NONE SEEN A Urine Drug Screen [[id number]] Abnormal Collection: 07/29/1130 Order Status: Completed Resulted: 07/29/11131 Specimen Type: Urine AMPHETAMINE NEGATIVE NEGATIVE OPIATES NEGATIVE NEGATIVE BARBITUATES NEGATIVE NEGATIVE PCP NEGATIVE NEGATIVE BENZODIAZEPINE POSITIVE NEGATIVE A THC POSITIVE NEGATIVE A COCAINE NEGATIVE NEGATIVE TRICYCLIC ANTIDEPRESS NEGATIVE NEGATIVE ACETAMINOPHEN/PARACET NEGATIVE NEGATIVE METHAMPHETAMINES NEGATIVE NEGATIVE METHADONE NEGATIVE NEGATIVE Alcohol, Ethyl [[id number]] Collection: 07/28/112311 Order Status: Completed Resulted: 07/29/11 0014 ALCOHOL,ETHYL <3 <10 mg/dL CBC with differential [[id number]] Abnormal Collection: 07/28/112311 Order Status: Completed Resulted: [...] Result: NORMAL RBC MORPH Comprehensive metabolic panel [[id number]] Abnormal Collection: 07/28/112311 Order Status: Completed Resulted: [...] 50 U/L EGFR >60 >60 mL/min/1.73m2 Amylase [[id number]] Abnormal Collection: 07/28/112311 Order Status: Completed Resulted: 07/28/112338 Specimen Type: Blood Specimen Source: Arm, Right AMYLASE 321 25 - 115 U/L H Lipase [[id number]] Collection: 07/28/112311 Order Status: Completed Resulted: 07/28/112338 Specimen Type: Blood Specimen Source: Arm, Right LIPASE 90 73 - 393 U/L aPTT [[id number]] Collection: 07/28/112311 Order Status: Completed Resulted: 07/28/112332 Specimen Type: Blood Specimen Source: Arm, Right APTT 32 25 - 37 seconds Protime [[id number]] Collection: 07/28/112311 Order Status: Completed Resulted: 07/28/112331 Specimen Type: Blood Specimen Source: Arm, Right INR 1.4 0.9 - 3.5 Radiology and EKG Evaluation Imaging Results XR Chest PA and Lateral (Preliminary result) Result time:07/29/11129 ED Interpretation Documented by Geovanny Greenfield DO (07/29/11129, [facility] Emergency Department, Emergency Medicine) This [...] time: 23:07 Rate: 109 Rhythm: Sinus tachycardia [place]: LAD VALENTIN: normal QRS: normal ST waves: [...] 07/28/112155 Date of Service: 07/28/112154 Status: Signed Outsole Paraffiner: Madelyn Rodgers RN (Registered Nurse) 41 yo female, c/o seizures. Hx of etoh. 1 episode of seizing. Vomited approx 500ml blood. Madelyn Rodgers RN 07/28/112155 docume nted in this encounter Miscellaneous Notes Op Note - Mitchell Griffith MD - 07/30/2011 2:43 PM PDT Op Note by Mitchell Griffith IV, MD at 07/30/11 1444 Author: Mitchell Griffith IV, MD Service: (none) Author Type: Physician Filed: 07/30/11 1154 Date of Service: 07/30/111442 Status: Signed Outsole Paraffiner: Mitchell Griffith IV, MD (Physician) Related Notes: Original Note by Mitchell Griffith IV, MD (Physician) filed at 07/30/11 1 454 [facility] Service: Gastroenterology ENDOSCOPY SUITE PROCEDURE [...] Subtle reticulonodular opacity in the upper lung monotya particularly on the left, which could suggest [...] FOREARM | | | Testing performed at [facility];[address] [facility] | | | [facility];[place] [address] CULTURE | | | NO GROWTH IN 5 DAYS. | | | Testing performed at [facility] [address];[place] [address] | | | REPORT STATUS 08/03/2011 FINAL [...] AC | | | Testing performed at [facility];[address] [facility] | | | [address];[place] [address] CULTURE | | | NO GROWTH IN 5 DAYS. | | | Testing performed at [facility];[address] [facility];[place] [address] | | | REPORT STATUS 08/03/2011 FINAL [...]
--- OUTSIDE RECORDS SUMMARY | ~2020-01-23 | XMS | Encounter Summary ---
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 Representative: Juanis Alvarez RN (Registered Nurse) Daily Care [...] EXTERNAL | | | | performed at [facility] | mmol/L | LAB | | | | [address];[place], [place] | | | | | | [address] | | | | + + + + + + | K | 3.4 (L)Comment: Testing | 3.5 - 4.9 | EXTERNAL | | | | performed at [facility];[place] | mmol/L | LAB | | | | [address];[place] | | | | | | [address] | | | | + + + + + + | Cl | 107Comment: Testing | 99 - 109 mmol/L | EXTERNAL | | | | performed at [facility];[address] | | LAB | | | | [address];[place] | | | | | | [address] | | | | + + + + + + | CO2 | 25Comment: Testing | 23 - 32 mmol/L | EXTERNAL | | | | performed at [facility];[address] | | LAB | | | | [address];[place] | | | | | | [address] | | | | + + + + + + | Anion Gap | 13Comment: Testing | 5 - 20 mmol/L | EXTERNAL | | | | performed at [facility];[address] | | LAB | | | | [address];[place] | | | | | | [address] | | | | + + + + + + | Glucose, | 87Comment: Testing | 65 - 99 mg/dL | EXTERNAL | | | Fasting | performed at [facility];[address] | | LAB | | | | [address];[place] | | | | | | [address] | | | | + + + + + + | BUN | 9Comment: Testing | 8 - 25 mg/dL | EXTERNAL | | | | performed at [facility];[address] | | LAB | | | | [address];[place] | | | | | | [address] | | | | + + + + + + | Creatinine | 0.57Comment: Testing | 0.50 - 1.00 | EXTERNAL | | | | performed at [facility];[place] | mg/dL | LAB | | | | [address];[place] | | | | | | [address] | | | | + + + + + + | BUN/Creatin | 16Comment: Testing | | EXTERNAL | | | ine Ratio | performed at [facility];[address] | | LAB | | | | [address];[place] | | | | | | [address] | | | | + + + + + + | Calcium | 7.1 (L)Comment: Testing | 8.5 - 10.5 | EXTERNAL | | | | performed at [facility];[place] | mg/dL | LAB | | | | [address];[place] | | | | | | [address] | | | | + + + [...] | | | | | | at [facility];[address] | | | | | | [address];[place] [address] | | | | + + + [...] LAB | | | | performed at [facility];888 | | | | | | [address];[place], [place] | | | | | | [address] | | | | + + + [...] LAB | | | | performed at [facility];[address] | | | | | | [address];[place] | | | | | | [address] | | | | + + + [...] EXTERNAL | | | | performed at [facility];888 | mmol/L | LAB | | | | [address];[place] | | | | | | [address] | | | | + + + + + + | K | 5.6 (H)Comment: MODERATE | 3.5 - 4.9 | EXTERNAL | | | | HEMOLYSISTesting | mmol/L | LAB | | | | performed at [facility];888 | | | | | | [address];[place] | | | | | | [address] | | | | + + + + + + | Cl | 102Comment: Testing | 99 - 109 mmol/L | EXTERNAL | | | | performed at [facility];[address] | | LAB | | | | [address];[place] | | | | | | [address] | | | | + + + + + + | CO2 | 24Comment: Testing | 23 - 32 mmol/L | EXTERNAL | | | | performed at [facility];[address] | | LAB | | | | [address];[place] | | | | | | [address] | | | | + + + + + + | Anion Gap | 16Comment: Testing | 5 - 20 mmol/L | EXTERNAL | | | | performed at [facility];[address] | | LAB | | | | [address];[place] | | | | | | [address] | | | | + + + + + + | Glucose, | 79Comment: Testing | 65 - 99 mg/dL | EXTERNAL | | | Fasting | performed at [facility];[address] | | LAB | | | | [address];[place] | | | | | | [address] | | | | + + + + + + | BUN | 7 (L)Comment: Testing | 8 - 25 mg/dL | EXTERNAL | | | | performed at [facility];[address] | | LAB | | | | [address];[place] | | | | | | [address] | | | | + + + + + + | Creatinine | 0.58Comment: Testing | 0.50 - 1.00 | EXTERNAL | | | | performed at [facility];[place] | mg/dL | LAB | | | | [address];[place] | | | | | | [address] | | | | + + + + + + | BUN/Creatin | 12Comment: Testing | | EXTERNAL | | | ine Ratio | performed at [facility];[address] | | LAB | | | | [address];[place] | | | | | | [address] | | | | + + + + + + | Calcium | 7.4 (L)Comment: Testing | 8.5 - 10.5 | EXTERNAL | | | | performed at [facility];888 | mg/dL | LAB | | | | [address];[place] | | | | | | [address] | | | | + + + [...] | | | | | | at [facility];[address] | | | | | | [address];[place] [address] | | | | + + + [...] | | | | | | [address], [place] | | | | | | [address] | | | | + + + [...] EXTERNAL | | | | performed at [facility];888 | K/uL | LAB | | | | [address];[place] | | | | | | [address] | | | | + + + + + + | Non- | 2.72 (L)Comment: Testing | 3.70 - 5.10 | EXTERNAL | | | Red Blood | performed at [facility];[place] | M/uL | LAB | | | Cells | [address];[place] | | | | | Counted | [address] | | | | + + + + + + | Hemoglobin | 9.0 (L)Comment: Testing | 11.3 - 15.5 | EXTERNAL | | | | performed at [facility];888 | g/dL | LAB | | | | [address];[place] | | | | | | [address] | | | | + + + + + + | Hematocrit, | 26.2 (L)Comment: Testing | 34.0 - 46.0 % | EXTERNAL | | | POC | performed at [facility];[address] | | LAB | | | | [address];[place] | | | | | | [address] | | | | + + + + + + | MCV | 96.3Comment: Testing | 80.0 - 100.0 fl | EXTERNAL | | | | performed at [facility];[address] | | LAB | | | | [address];[place] | | | | | | [address] | | | | + + + + + + | MCH | 33.1Comment: Testing | 27.0 - 34.0 pg | EXTERNAL | | | | performed at [facility];[address] | | LAB | | | | [address];[place] | | | | | | [address] | | | | + + + + + + | MCHC | 34.4Comment: Testing | 32.0 - 35.5 | EXTERNAL | | | | performed at [facility];888 | g/dL | LAB | | | | [address];[place] | | | | | | [address] | | | | + + + + + + | RDW-CV | 47.7Comment: Testing | 37 - 53 fl | EXTERNAL | | | | performed at [facility];[address] | | LAB | | | | [address];[place] | | | | | | [address] | | | | + + + + + + | Platelet | 143 (L)Comment: Testing | 150 - 400 K/uL | EXTERNAL | | | Count | performed at [facility];[address] | | LAB | | | Plasma | [address];[place] | | | | | | [address] | | | | + + + + + + | MPV | 7.3Comment: Testing | fl | EXTERNAL | | | | performed at [facility];[address] | | LAB | | | | [address];[place] | | | | | | [address] | | | | + + + + + + | Differentia | AUTOMATEDComment: | | EXTERNAL | | | l Type | Testing performed at | | LAB | | | | [facility];[address];[place] [address] | | | | + + + + + + | % Segmented | 57.41Comment: Testing | % | EXTERNAL | | | | performed at [facility];[address] | | LAB | | | Neutrophils | [address];[place] | | | | | | [address] | | | | + + + + + + | % | 12.22Comment: Testing | % | EXTERNAL | | | Lymphocytes | performed at [facility];[address] | | LAB | | | | [address];[place] | | | | | | [address] | | | | + + + + + + | % Monocytes | 15.25Comment: Testing | % | EXTERNAL | | | | performed at [facility];[address] | | LAB | | | | [address];[place] | | | | | | [address] | | | | + + + + + + | % | 14.04Comment: Testing | % | EXTERNAL | | | Eosinophils | performed at [facility];[address] | | LAB | | | | [address];[place] | | | | | | [address] | | | | + + + + + + | % Basophils | 1.08Comment: Testing | % | EXTERNAL | | | | performed at [facility];[address] | | LAB | | | | [address];[place] | | | | | | [address] | | | | + + + + + + | Absolute | 3.20Comment: Testing | 1.90 - 7.40 | EXTERNAL | | | Segmented | performed at [facility];[address] | K/uL | LAB | | | Neutrophils | [address];[place] | | | | | | [address] | | | | + + + + + + | Absolute | 0.68 (L)Comment: Testing | 1.00 - 3.90 | EXTERNAL | | | Lymphocytes | performed at [facility];[address] | K/uL | LAB | | | | [address];[place] | | | | | | [address] | | | | + + + + + + | Absolute | 0.85 (H)Comment: Testing | 0.00 - 0.80 | EXTERNAL | | | Monocytes | performed at [facility];[address] | K/uL | LAB | | | | [address];[place] | | | | | | [address] | | | | + + + + + + | Absolute | 0.78 (H)Comment: Testing | 0.00 - 0.50 | EXTERNAL | | | Eosinophils | performed at [facility];888 | K/uL | LAB | | | | [address];[place] | | | | | | [address] | | | | + + + + + + | Absolute | 0.06Comment: Testing | 0.00 - 0.10 | EXTERNAL | | | Basophils | performed at [facility];[address] | K/uL | LAB | | | | [address];[place] | | | | | | [address] | | | | + + + [...] EXTERNAL | | | | performed at [facility];888 | uIU/mL | LAB | | | | [address];[place], [place] | | | | | | [address] | | | | + + + [...] EXTERNAL | | | | performed at [facility];[address] | mmol/L | LAB | | | | [address];[place] | | | | | | [address] | | | | + + + + + + | K | 3.9Comment: Testing | 3.5 - 4.9 | EXTERNAL | | | | performed at [facility];[place] | mmol/L | LAB | | | | [address];[place] | | | | | | [address] | | | | + + + + + + | Cl | 103Comment: Testing | 99 - 109 mmol/L | EXTERNAL | | | | performed at [facility];[address] | | LAB | | | | [address];[place] | | | | | | [address] | | | | + + + + + + | CO2 | 25Comment: Testing | 23 - 32 mmol/L | EXTERNAL | | | | performed at [facility];[address] | | LAB | | | | [address];[place] | | | | | | [address] | | | | + + + + + + | Anion Gap | 14Comment: Testing | 5 - 20 mmol/L | EXTERNAL | | | | performed at [facility];[address] | | LAB | | | | [address];[place] | | | | | | [address] | | | | + + + + + + | Glucose, | 81Comment: Testing | 65 - 99 mg/dL | EXTERNAL | | | Fasting | performed at [facility];[address] | | LAB | | | | [address];[place] | | | | | | [address] | | | | + + + + + + | BUN | 5 (L)Comment: Testing | 8 - 25 mg/dL | EXTERNAL | | | | performed at [facility];[address] | | LAB | | | | [address];[place] | | | | | | [address] | | | | + + + + + + | Creatinine | 0.44 (L)Comment: Testing | 0.50 - 1.00 | EXTERNAL | | | | performed at [facility];[place] | mg/dL | LAB | | | | [address];[place] | | | | | | [address] | | | | + + + + + + | BUN/Creatin | 10Comment: Testing | | EXTERNAL | | | ine Ratio | performed at [facility];[address] | | LAB | | | | [address];[place] | | | | | | [address] | | | | + + + + + + | Calcium | 7.4 (L)Comment: Testing | 8.5 - 10.5 | EXTERNAL | | | | performed at [facility];[place] | mg/dL | LAB | | | | [address];[place] | | | | | | [address] | | | | + + + + + + | Protein, | 5.2 (L)Comment: Testing | 6.3 - 8.2 g/dL | EXTERNAL | | | Total | performed at [facility];[address] | | LAB | | | | [address];[place] | | | | | | [address] | | | | + + + + + + | Albumin | 1.5 (L)Comment: Testing | 3.6 - 5.0 g/dL | EXTERNAL | | | | performed at [facility];[address] | | LAB | | | | [address];[place] | | | | | | [address] | | | | + + + + + + | Globulin | 3.7Comment: Testing | 1.3 - 4.9 g/dL | EXTERNAL | | | | performed at [facility];[address] | | LAB | | | | [address];[place] | | | | | | [address] | | | | + + + + + + | A/G Ratio | 0.4 (L)Comment: Testing | 1.0 - 2.4 | EXTERNAL | | | | performed at [facility];[address] | | LAB | | | | [address];[place] | | | | | | [address] | | | | + + + + + + | Bilirubin | 0.8Comment: Testing | 0.1 - 1.5 mg/dL | EXTERNAL | | | Total | performed at [facility];[address] | | LAB | | | | [address];[place] | | | | | | [address] | | | | + + + + + + | ALP, | 115Comment: Testing | 35 - 115 U/L | EXTERNAL | | | External | performed at [facility];[address] | | LAB | | | | [address];[place] | | | | | | [address] | | | | + + + + + + | AST | 20Comment: Testing | 10 - 45 U/L | EXTERNAL | | | | performed at [facility];[address] | | LAB | | | | [address];[place] | | | | | | [address] | | | | + + + + + + | ALT | 11Comment: Testing | 10 - 65 U/L | EXTERNAL | | | | performed at [facility];[address] | | LAB | | | | [address];[place] | | | | | | [address] | | | | + + + [...] | | | | | | at [facility];[address];[place] [address] | | | | + + + [...] EXTERNAL | | | | performed at [facility];[address] | | LAB | | | | [address];[place], [place] | | | | | | [address] | | | | + + + [...] EXTERNAL | | | | performed at [facility], [address] | | LAB | | | | [address], | | | | | | [place] [address] | | | | + + + [...] EXTERNAL | | | | performed at [facility], [address] | | LAB | | | | [address], | | | | | | [place] [address] | | | | + + + [...] | | | | | [place] [address] | | | | + + + + + + | K | 3.8Comment: Testing | 3.5 - 4.9 | EXTERNAL | | | | performed at [facility], [address] | mmol/L | LAB | | | | [address], | | | | | | [place] [address] | | | | + + + + + + | Cl | 105Comment: Testing | 99 - 109 mmol/L | EXTERNAL | | | | performed at [facility], [address] | | LAB | | | | [address], | | | | | | [place] [address] | | | | + + + + + + | CO2 | 25Comment: Testing | 23 - 32 mmol/L | EXTERNAL | | | | performed at [facility], [address] | | LAB | | | | [address], | | | | | | [place] [address] | | | | + + + + + + | Anion Gap | 14Comment: Testing | 5 - 20 mmol/L | EXTERNAL | | | | performed at [facility], [address] | | LAB | | | | [address], | | | | | | [place] [address] | | | | + + + + + + | Glucose, | 94Comment: Testing | 65 - 99 mg/dL | EXTERNAL | | | Fasting | performed at [facility], [address] | | LAB | | | | [address], | | | | | | [place] [address] | | | | + + + + + + | BUN | 3 (L)Comment: Testing | 8 - 25 mg/dL | EXTERNAL | | | | performed at [facility], [address] | | LAB | | | | [address], | | | | | | [place] [address] | | | | + + + + + + | Creatinine | 0.5Comment: Testing | 0.50 - 1.00 | EXTERNAL | | | | performed at [facility], [address] | mg/dL | LAB | | | | [address], | | | | | | [place] [address] | | | | + + + + + + | BUN/Creatin | 6Comment: Testing | | EXTERNAL | | | ine Ratio | performed at [facility], [address] | | LAB | | | | [address], | | | | | | [place] [address] | | | | + + + + + + | Calcium | 8.0 (L)Comment: Testing | 8.5 - 10.5 | EXTERNAL | | | | performed at [facility], [address] | mg/dL | LAB | | | | [address], | | | | | | [place] [address] | | | | + + + + + + | Protein, | 5.7 (L)Comment: Testing | 6.3 - 8.2 g/dL | EXTERNAL | | | Total | performed at [facility], [address] | | LAB | | | | [address], | | | | | | [place] [address] | | | | + + + + + + | Albumin | 1.7 (L)Comment: Testing | 3.6 - 5.0 g/dL | EXTERNAL | | | | performed at [facility], [address] | | LAB | | | | [address], | | | | | | [place] [address] | | | | + + + + + + | Globulin | 4.0Comment: Testing | 1.3 - 4.9 g/dL | EXTERNAL | | | | performed at [facility], [address] | | LAB | | | | [address], | | | | | | [place] [address] | | | | + + + + + + | A/G Ratio | 0.4 (L)Comment: Testing | 1.0 - 2.4 | EXTERNAL | | | | performed at [facility], [address] | | LAB | | | | [address], | | | | | | [place] [address] | | | | + + + + + + | Bilirubin | 0.6Comment: Testing | 0.1 - 1.5 mg/dL | EXTERNAL | | | Total | performed at [facility], [address] | | LAB | | | [address], | | | | | | [place] [address] | | | | + + + + + + | ALP, | 153 (H)Comment: Testing | 35 - 115 U/L | EXTERNAL | | | External | performed at [facility], [address] | | LAB | | | | [address], | | | | | | [place] [address] | | | | + + + + + + | AST | 22Comment: Testing | 10 - 45 U/L | EXTERNAL | | | | performed at [facility], [address] | | LAB | | | | [address], | | | | | | [place] [address] | | | | + + + + + + | ALT | 13Comment: Testing | 10 - 65 U/L | EXTERNAL | | | | performed at [facility], [address] | | LAB | | | | [address], | | | | | | [place] [address] | | | | + + + [...] | | | | | [place] [address] | | | | + + + [...] EXTERNAL | | | | performed at [facility];[address] | | LAB | | | | [address];[place], [place] | | | | | | [address] | | | | + + + [...] EXTERNAL | | | | performed at [facility];[address] | K/uL | LAB | | | | [address];[place] | | | | | | [address] | | | | + + + + + + | Non- | 2.50 (L)Comment: Testing | 3.70 - 5.10 | EXTERNAL | | | Red Blood | performed at [facility];888 | M/uL | LAB | | | Cells | [address];[place] | | | | | Counted | [address] | | | | + + + + + + | Hemoglobin | 8.2 (L)Comment: Testing | 11.3 - 15.5 | EXTERNAL | | | | performed at [facility];888 | g/dL | LAB | | | | [address];[place] | | | | | | [address] | | | | + + + + + + | Hematocrit, | 24.1 (L)Comment: Testing | 34.0 - 46.0 % | EXTERNAL | | | POC | performed at [facility];[address] | | LAB | | | | [address];[place] | | | | | | [address] | | | | + + + + + + | MCV | 96.4Comment: Testing | 80.0 - 100.0 fl | EXTERNAL | | | | performed at [facility];[address] | | LAB | | | | [address];[place] | | | | | | [address] | | | | + + + + + + | MCH | 33.0Comment: Testing | 27.0 - 34.0 pg | EXTERNAL | | | | performed at [facility];[address] | | LAB | | | | [address];[place] | | | | | | [address] | | | | + + + + + + | MCHC | 34.2Comment: Testing | 32.0 - 35.5 | EXTERNAL | | | | performed at [facility];888 | g/dL | LAB | | | | [address];[place] | | | | | | [address] | | | | + + + + + + | RDW-CV | 47.7Comment: Testing | 37 - 53 fl | EXTERNAL | | | | performed at [facility];[address] | | LAB | | | | [address];[place] | | | | | | [address] | | | | + + + + + + | Platelet | 90 (L)Comment: Testing | 150 - 400 K/uL | EXTERNAL | | | Count | performed at [facility];888 | | LAB | | | Plasma | [address];[place] | | | | | | [address] | | | | + + + + + + | MPV | 7.4Comment: Testing | fl | EXTERNAL | | | | performed at [facility];[address] | | LAB | | | | [address];[place] | | | | | | [address] | | | | + + + + + + | Differentia | AUTOMATEDComment: | | EXTERNAL | | | l Type | Testing performed at | | LAB | | | | [facility];[address];[place] [address] | | | | + + + + + + | % Segmented | 59.35Comment: Testing | % | EXTERNAL | | | | performed at [facility];[address] | | LAB | | | Neutrophils | [address];[place] | | | | | | [address] | | | | + + + + + + | % | 9.13Comment: Testing | % | EXTERNAL | | | Lymphocytes | performed at [facility];[address] | | LAB | | | | [address];[place] | | | | | | [address] | | | | + + + + + + | % Monocytes | 14.62Comment: Testing | % | EXTERNAL | | | | performed at [facility];[address] | | LAB | | | | [address];[place] | | | | | | [address] | | | | + + + + + + | % | 15.46Comment: Testing | % | EXTERNAL | | | Eosinophils | performed at [facility];[address] | | LAB | | | | [address];[place] | | | | | | [address] | | | | + + + + + + | % Basophils | 1.44Comment: Testing | % | EXTERNAL | | | | performed at [facility] [place] | | LAB | | | | [address];[place] | | | | | | [address] | | | | + + + + + + | Absolute | 2.53Comment: Testing | 1.90 - 7.40 | EXTERNAL | | | Segmented | performed at [facility] [place] | K/uL | LAB | | | Neutrophils | [address];[place] | | | | | | [id number] | | | | + + + + + + | Absolute | 0.39 (L)Comment: Testing | 1.00 - 3.90 | EXTERNAL | | | Lymphocytes | performed at [facility] [place] | K/uL | LAB | | | | [address];[place] | | | | | | [address] | | | | + + + + + + | Absolute | 0.62Comment: Testing | 0.00 - 0.80 | EXTERNAL | | | Monocytes | performed at [facility] | K/uL | LAB | | | | [address];[place] | | | | | | [address] | | | | + + + + + + | Absolute | 0.66 (H)Comment: Testing | 0.00 - 0.50 | EXTERNAL | | | Eosinophils | performed at [facility] | K/uL | LAB | | | | [address];[place] | | | | | | [address] | | | | + + + + + + | Absolute | 0.06Comment: Testing | 0.00 - 0.10 | EXTERNAL | | | Basophils | performed at [facility] | K/uL | LAB | | | | [address];[place], [place] | | | | | | [address] | | | | + + + [...] EXTERNAL | | | | performed at [facility] | | LAB | | | | [address] [facility];[place], [place] | | | | | | [address] | | | | + + + [...] EXTERNAL | | | | performed at [facility] | | LAB | | | | [address];[place] | | | | | | [address] | | | | + + + [...] EXTERNAL | | | | performed at [facility] | mmol/L | LAB | | | | [address];[place] | | | | | | [address] | | | | + + + + + + | K | 3.6Comment: Testing | 3.5 - 4.9 | EXTERNAL | | | | performed at [facility] | mmol/L | LAB | | | | [address];[place] | | | | | | [address] | | | | + + + + + + | Cl | 105Comment: Testing | 99 - 109 mmol/L | EXTERNAL | | | | performed at [facility] | | LAB | | | | [address];[place] | | | | | | [address] | | | | + + + + + + | CO2 | 22 (L)Comment: Testing | 23 - 32 mmol/L | EXTERNAL | | | | performed at [facility] | | LAB | | | | [address];[place] | | | | | | [address] | | | | + + + + + + | Anion Gap | 15Comment: Testing | 5 - 20 mmol/L | EXTERNAL | | | | performed at [facility] | | LAB | | | | [address];[place] | | | | | | [address] | | | | + + + + + + | Glucose, | 89Comment: Testing | 65 - 99 mg/dL | EXTERNAL | | | Fasting | performed at [facility] | | LAB | | | | [address];[place] | | | | | | [address] | | | | + + + + + + | BUN | 3 (L)Comment: Testing | 8 - 25 mg/dL | EXTERNAL | | | | performed at [facility] | | LAB | | | | [address];[place] | | | | | | [address] | | | | + + + + + + | Creatinine | 0.43 (L)Comment: Testing | 0.50 - 1.00 | EXTERNAL | | | | performed at [facility] | mg/dL | LAB | | | | [address];[place] | | | | | | [address] | | | | + + + + + + | BUN/Creatin | 8Comment: Testing | | EXTERNAL | | | ine Ratio | performed at [facility] | | LAB | | | | [address];[place] | | | | | | [address] | | | | + + + + + + | Calcium | 7.2 (L)Comment: Testing | 8.5 - 10.5 | EXTERNAL | | | | performed at [facility] | mg/dL | LAB | | | | [address];[place] | | | | | | [address] | | | | + + + + + + | Protein, | 5.3 (L)Comment: Testing | 6.3 - 8.2 g/dL | EXTERNAL | | | Total | performed at [facility] | | LAB | | | | [address];[place] | | | | | | [address] | | | | + + + + + + | Albumin | 1.6 (L)Comment: Testing | 3.6 - 5.0 g/dL | EXTERNAL | | | | performed at [facility];[address] | | LAB | | | | [address];[place] | | | | | | [address] | | | | + + + + + + | Globulin | 3.6Comment: Testing | 1.3 - 4.9 g/dL | EXTERNAL | | | | performed at [facility];[address] | | LAB | | | | [address];[place] | | | | | | [address] | | | | + + + + + + | A/G Ratio | 0.5 (L)Comment: Testing | 1.0 - 2.4 | EXTERNAL | | | | performed at [facility];[address] | | LAB | | | | [address];[place] | | | | | | [address] | | | | + + + + + + | Bilirubin | 1.3Comment: Testing | 0.1 - 1.5 mg/dL | EXTERNAL | | | Total | performed at [facility];[address] | | LAB | | | | [address];[place] | | | | | | [address] | | | | + + + + + + | ALP, | 123 (H)Comment: Testing | 35 - 115 U/L | EXTERNAL | | | External | performed at [facility];[address] | | LAB | | | | [address];[place] | | | | | | [address] | | | | + + + + + + | AST | 24Comment: Testing | 10 - 45 U/L | EXTERNAL | | | | performed at [facility];[address] | | LAB | | | | [address];[place] | | | | | | [address] | | | | + + + + + + | ALT | 12Comment: Testing | 10 - 65 U/L | EXTERNAL | | | | performed at [facility];[address] | | LAB | | | | [address];[place], [place] | | | | | | [address] | | | | + + + [...] | | | | | | at [facility];[address];[place] [address] | | | | + + + [...] EXTERNAL | | | | performed at [facility];888 | mmol/L | LAB | | | | [address];[place] | | | | | | [address] | | | | + + + [...] EXTERNAL | | | | performed at [facility];[address] | | LAB | | | | [address];[place], [place] | | | | | | [address] | | | | + + + [...] EXTERNAL | | | | performed at [facility];[address] | | LAB | | | | [address];[place], [place] | | | | | | [address] | | | | + + + [...] EXTERNAL | | | | performed at [facility];[address] | | LAB | | | | [address];[place], [place] | | | | | | [address] | | | | + + + [...] | | | Patient | performed at [facility];[address] | | LAB | | | | [address];[place] | | | | | | [address] | | | | + + + [...] | | | | | performed at [facility] | | | | | | [facility];[place], [place] | | | | | | [address] | | | | + + + [...] | | | | | [place] [address] | | | | + + + + + + | Non- | 2.59 (L)Comment: Testing | 3.70 - 5.10 | EXTERNAL | | | Red Blood | performed at [facility], [address] | M/uL | LAB | | | Cells | [address], | | | | | Counted | [place] [address] | | | | + + + + + + | Hemoglobin | 8.6 (L)Comment: Testing | 11.3 - 15.5 | EXTERNAL | | | | performed at [facility], [address] | g/dL | LAB | | | | [address], | | | | | | [place] [address] | | | | + + + + + + | Hematocrit, | 25.3 (L)Comment: Testing | 34.0 - 46.0 % | EXTERNAL | | | POC | performed at [facility], [address] | | LAB | | | | [address], | | | | | | [place] [address] | | | | + + + + + + | MCV | 97.7Comment: Testing | 80.0 - 100.0 fl | EXTERNAL | | | | performed at [facility], [address] | | LAB | | | | [address], | | | | | | [place] [address] | | | | + + + + + + | MCH | 33.0Comment: Testing | 27.0 - 34.0 pg | EXTERNAL | | | | performed at [facility], [address] | | LAB | | | | [address], | | | | | | [place] [address] | | | | + + + + + + | MCHC | 33.8Comment: Testing | 32.0 - 35.5 | EXTERNAL | | | | performed at [facility], [address] | g/dL | LAB | | | | [address], | | | | | | [place] [address] | | | | + + + + + + | RDW-CV | 47.7Comment: Testing | 37 - 53 fl | EXTERNAL | | | | performed at [facility], [address] | | LAB | | | | [address], | | | | | | [place] [address] | | | | + + + + + + | Platelet | 118 (L)Comment: Testing | 150 - 400 K/uL | EXTERNAL | | | Count | performed at [facility], [address] | | LAB | | | Plasma | [address], | | | | | | [place] [address] | | | | + + + + + + | MPV | 7.1Comment: Testing | fl | EXTERNAL | | | | performed at [facility], [address] | | LAB | | | | [address], | | | | | | [place] [address] | | | | + + + + + + | Differentia | AUTOMATEDComment: | | EXTERNAL | | | l Type | Testing performed at | | LAB | | | | [facility], [address] | | | | | | [place] | | | | | | [address] | | | | + + + + + + | % Segmented | 53.97Comment: Testing | % | EXTERNAL | | | | performed at [facility], [address] | | LAB | | | Neutrophils | [address], | | | | | | [place] [address] | | | | + + + + + + | % | 11.10Comment: Testing | % | EXTERNAL | | | Lymphocytes | performed at [facility], [address] | | LAB | | | | [address], | | | | | | [place] [address] | | | | + + + + + + | % Monocytes | 15.59Comment: Testing | % | EXTERNAL | | | | performed at [facility], [address] | | LAB | | | | [address], | | | | | | [place] [address] | | | | + + + + + + | % | 18.27Comment: Testing | % | EXTERNAL | | | Eosinophils | performed at [facility], [address] | | LAB | | | | [address], | | | | | | [place] [address] | | | | + + + + + + | % Basophils | 1.07Comment: Testing | % | EXTERNAL | | | | performed at [facility], [address] | | LAB | | | | [address], | | | | | | [place] [address] | | | | + + + + + + | Absolute | 2.33Comment: Testing | 1.90 - 7.40 | EXTERNAL | | | Segmented | performed at [facility], [address] | K/uL | LAB | | | Neutrophils | [address], | | | | | | [place] [address] | | | | + + + + + + | Absolute | 0.48 (L)Comment: Testing | 1.00 - 3.90 | EXTERNAL | | | Lymphocytes | performed at [facility], [address] | K/uL | LAB | | | | [address], | | | | | | [place] [address] | | | | + + + + + + | Absolute | 0.67Comment: Testing | 0.00 - 0.80 | EXTERNAL | | | Monocytes | performed at [facility], [address] | K/uL | LAB | | | | [address], | | | | | | [place], [place] [address] | | | | + + + + + + | Absolute | 0.79 (H)Comment: Testing | 0.00 - 0.50 | EXTERNAL | | | Eosinophils | performed at [facility], [address] | K/uL | LAB | | | | [address], | | | | | | [place], [place] [address] | | | | + + + + + + | Absolute | 0.05Comment: Testing | 0.00 - 0.10 | EXTERNAL | | | Basophils | performed at [facility], [address] | K/uL | LAB | | | | [address], | | | | | | [place], [place] [address] | | | | + + + [...] EXTERNAL | | | | performed at [facility], [address] | | LAB | | | | [address], | | | | | | [place] [address] | | | | + + + [...] EXTERNAL | | | | performed at [facility], [address] | | LAB | | | | [address], | | | | | | [place] [address] | | | | + + + [...] | | | Alcohol | performed at [facility];[address] | | LAB | | | | [address] [facility];[place], [place] | | | | | | [address] | | | | + + + [...] | | | | | [place] [address] | | | | + + + + + + | K | 3.3 (L)Comment: Testing | 3.5 - 4.9 | EXTERNAL | | | | performed at [facility], [address] | mmol/L | LAB | | | | [address], | | | | | | [place] [address] | | | | + + + + + + | Cl | 102Comment: Testing | 99 - 109 mmol/L | EXTERNAL | | | | performed at [facility], [address] | | LAB | | | | [address], | | | | | | [place] [address] | | | | + + + + + + | CO2 | 23Comment: Testing | 23 - 32 mmol/L | EXTERNAL | | | | performed at [facility], [address] | | LAB | | | | [address], | | | | | | [place] [address] | | | | + + + + + + | Anion Gap | 13Comment: Testing | 5 - 20 mmol/L | EXTERNAL | | | | performed at [facility], [address] | | LAB | | | | [address], | | | | | | [place] [address] | | | | + + + + + + | Glucose, | 88Comment: Testing | 65 - 99 mg/dL | EXTERNAL | | | Fasting | performed at [facility], [address] | | LAB | | | | [address], | | | | | | [place] [address] | | | | + + + + + + | BUN | 4 (L)Comment: Testing | 8 - 25 mg/dL | EXTERNAL | | | | performed at [facility], [address] | | LAB | | | | [address], | | | | | | [place] [address] | | | | + + + + + + | Creatinine | 0.4 (L)Comment: Testing | 0.50 - 1.00 | EXTERNAL | | | | performed at [facility], [address] | mg/dL | LAB | | | | [address], | | | | | | [place] [address] | | | | + + + + + + | BUN/Creatin | 10Comment: Testing | | EXTERNAL | | | ine Ratio | performed at [facility], [address] | | LAB | | | | [address], | | | | | | [place] [address] | | | | + + + + + + | Calcium | 7.7 (L)Comment: Testing | 8.5 - 10.5 | EXTERNAL | | | | performed at [facility], [address] | mg/dL | LAB | | | | [address], | | | | | | [place] [address] | | | | + + + + + + | Protein, | 5.7 (L)Comment: Testing | 6.3 - 8.2 g/dL | EXTERNAL | | | Total | performed at [facility], [address] | | LAB | | | | [address], | | | | | | [place] [address] | | | | + + + + + + | Albumin | 1.7 (L)Comment: Testing | 3.6 - 5.0 g/dL | EXTERNAL | | | | performed at [facility], [address] | | LAB | | | | [address], | | | | | | [place] [address] | | | | + + + + + + | Globulin | 4.0Comment: Testing | 1.3 - 4.9 g/dL | EXTERNAL | | | | performed at [facility], [address] | | LAB | | | | [address], | | | | | | [place] [address] | | | | + + + + + + | A/G Ratio | 0.4 (L)Comment: Testing | 1.0 - 2.4 | EXTERNAL | | | | performed at [facility], [address] | | LAB | | | | [address], | | | | | | [place] [address] | | | | + + + + + + | Bilirubin | 0.8Comment: Testing | 0.1 - 1.5 mg/dL | EXTERNAL | | | Total | performed at [facility], [address] | | LAB | | | | [address], | | | | | | [place] [address] | | | | + + + + + + | ALP, | 162 (H)Comment: Testing | 35 - 115 U/L | EXTERNAL | | | External | performed at [facility], [address] | | LAB | | | | [address], | | | | | | [place] [address] | | | | + + + + + + | AST | 29Comment: Testing | 10 - 45 U/L | EXTERNAL | | | | performed at [facility], [address] | | LAB | | | | [address], | | | | | | [place] [address] | | | | + + + + + + | ALT | 13Comment: Testing | 10 - 65 U/L | EXTERNAL | | | | performed at [facility], [address] | | LAB | | | | [address] [facility], | | | | | | [place] [address] | | | | + + + [...] W | | | | | | [facility] | | | | | | [place] [address] | | | | + + + [...] EXTERNAL | | | | performed at [facility] | | LAB | | | | [address];[place] | | | | | | [address] | | | | + + + + + + | Clarity, | CLEARComment: Testing | | EXTERNAL | | | Urine | performed at [facility];[address] | | LAB | | | | [address];[place] | | | | | | [address] | | | | + + + + + + | Specific | 1.003Comment: Testing | 1.002 - 1.030 | EXTERNAL | | | [place], | performed at [facility];[address] | | LAB | | | Urine | [address];[place] | | | | | | [address] | | | | + + + + + + | Leukocyte | NEGATIVEComment: Testing | | EXTERNAL | | | Esterase, | performed at [facility];[address] | | LAB | | | Urine | [address];[place] | | | | | | [address] | | | | + + + + + + | Nitrite, | NEGATIVEComment: Testing | | EXTERNAL | | | Urine | performed at [facility];[address] | | LAB | | | | [address];[place] | | | | | | [address] | | | | + + + + + + | Urobilinoge | NORMALComment: Testing | mg/dL | EXTERNAL | | | n, Urine | performed at [facility];[address] | | LAB | | | | [address];[place] | | | | | | [address] | | | | + + + + + + | Protein, | NEGATIVEComment: Testing | mg/dL | EXTERNAL | | | Urine | performed at [facility];[address] | | LAB | | | | [address];[place] | | | | | | [address] | | | | + + + + + + | pH, Urine | 6.0Comment: Testing | 5.0 - 8.0 | EXTERNAL | | | | performed at [facility];[address] | | LAB | | | | [address];[place] | | | | | | [address] | | | | + + + + + + | Blood, | SMALL (A)Comment: | | EXTERNAL | | | Urine | Testing performed at | | LAB | | | | [facility];[address];[place] [address] | | | | + + + + + + | Ketones | NEGATIVEComment: Testing | mg/dL | EXTERNAL | | | | performed at [facility];[address] | | LAB | | | | [address];[place] | | | | | | [address] | | | | + + + + + + | Bilirubin, | NEGATIVEComment: Testing | | EXTERNAL | | | Urine | performed at [facility];[address] | | LAB | | | | [address];[place] | | | | | | [address] | | | | + + + + + + | Glucose, | NEGATIVEComment: Testing | mg/dL | EXTERNAL | | | Urine | performed at [facility];[address] | | LAB | | | | [address];[place] | | | | | | [address] | | | | + + + + + + | WBC, UA | 0-2Comment: Testing | 0 - 5 /hpf | EXTERNAL | | | | performed at [facility];[address] | | LAB | | | | [address];[place] | | | | | | [address] | | | | + + + + + + | RBC, UA | 3-5Comment: Testing | 0 - 5 /hpf | EXTERNAL | | | | performed at [facility];[address] | | LAB | | | | [address];[place] | | | | | | [address] | | | | + + + + + + | Bacteria, | NONE SEENComment: | | EXTERNAL | | | UA | Testing performed at | | LAB | | | | [facility];[address] | | | | | | [address];[place] [address] | | | | + + + + + + | Epithelial | 11-15Comment: Testing | /lpf | EXTERNAL | | | Cells | performed at [facility];[address] | | LAB | | | | [address];[place] | | | | | | [address] | | | | + + + + + + | Mucus, | 1+Comment: Testing | | EXTERNAL | | | Urine | performed at [facility];[address] | | LAB | | | | [address];[place] | | | | | | [address] | | | | + + + [...] EXTERNAL LAB | | Testing performed at [facility] [address] COLOR | | | STRAW Testing performed | | | at [facility] [address];[place] [address] APPEARANCE | | | HAZY Testing performed at [facility] [address] | | [address];[place] [address] RBC'S | | | 48 Testing performed at [facility] [address] | | [address]vd;[place] [address] TOTAL NUCLEATED CELLS 10 | | | Testing performed at [facility] [address];[place] [address] | | | NEUTROPHILS 30 | | | Testing performed at [facility] [address];[place] [address] LYMPHOCYTES | | | 9 Testing performed | | | at [facility] [address];[place] [address] MONOCYTES/MACROPHAGES | | | 52 Testing performed at [facility] [address] | | [address];[place] [address] Mesothelial Cells 9 | | | Testing performed at [facility] [address];[place], [place] | | | [address] CELLS COUNTED 100 | | | Testing performed at [facility];[address] [place] [address];[place] [address] | | + + + + +---------+ [...] | EXTERNAL LAB | | not a funeral home associate validated sample type for this method. No reference | | | ranges have been established. Testing performed at [facility], [address] | | | [place] [address] | | + + + + +---------+ [...] | EXTERNAL LAB | | not a funeral home associate validated sample type for this method. No reference | | | ranges have been established. Testing performed at [facility], [address] | | | [place] [address] FLUID TP SOURCE | | | ASCT Testing performed at [facility];[address] | | | [facility];[place] [address] | | + + + + +---------+ [...] EXTERNAL LAB | | is not a funeral home associate validated sample type for this method. No | | | reference ranges have been established. Testing performed at [facility], | | | [address] [place] [address] | | + + + + +---------+ [...] | EXTERNAL LAB | | not a funeral home associate validated sample type for this method. No | | | reference ranges have been established. Testing performed at [facility], | | | [address] [facility], [place] [address] Glucose, Fluid Type | | | ASCT Testing performed at [facility];[address] | | | [facility];[place] [address] | | + + + + +---------+ [...] | ON PH STRIP Testing performed at [facility];[address] [place] [address];[place] [address] | | + + + + +---------+ [...] | | | Alcohol | performed at [facility];[address] | | LAB | | | | [address];[place], [place] | | | | | | [address] | | | | + + + [...] | | | Patient | performed at [facility];[address] | | LAB | | | | [address];[place] | | | | | | [address] | | | | + [...] | | | | | performed at [facility];[address] | | | | | | [facility];[place], [place] | | | | | | [address] | | | | + + + [...] EXTERNAL | | | | performed at [facility];[address] | K/uL | LAB | | | | [address];[place] | | | | | | [address] | | | | + + + + + + | Non- | 2.79 (L)Comment: Testing | 3.70 - 5.10 | EXTERNAL | | | Red Blood | performed at [facility];[address] | M/uL | LAB | | | Cells | [address];[place] | | | | | Counted | [address] | | | | + + + + + + | Hemoglobin | 9.2 (L)Comment: Testing | 11.3 - 15.5 | EXTERNAL | | | | performed at [facility];888 | g/dL | LAB | | | | [address];[place] | | | | | | [address] | | | | + + + + + + | Hematocrit, | 27.1 (L)Comment: Testing | 34.0 - 46.0 % | EXTERNAL | | | POC | performed at [facility];[address] | | LAB | | | | [address];[place] | | | | | | [address] | | | | + + + + + + | MCV | 97.1Comment: Testing | 80.0 - 100.0 fl | EXTERNAL | | | | performed at [facility];[address] | | LAB | | | | [address];[place] | | | | | | [address] | | | | + + + + + + | MCH | 32.9Comment: Testing | 27.0 - 34.0 pg | EXTERNAL | | | | performed at [facility];[address] | | LAB | | | | [address];[place] | | | | | | [address] | | | | + + + + + + | MCHC | 33.9Comment: Testing | 32.0 - 35.5 | EXTERNAL | | | | performed at [facility];888 | g/dL | LAB | | | | [address];[place] | | | | | | [address] | | | | + + + + + + | RDW-CV | 47.3Comment: Testing | 37 - 53 fl | EXTERNAL | | | | performed at [facility];[address] | | LAB | | | | [address];[place] | | | | | | [address] | | | | + + + + + + | Platelet | 155Comment: Testing | 150 - 400 K/uL | EXTERNAL | | | Count | performed at [facility];[address] | | LAB | | | Plasma | [address];[place] | | | | | | [address] | | | | + + + + + + | MPV | 7.1Comment: Testing | fl | EXTERNAL | | | | performed at [facility];[address] | | LAB | | | | [address];[place] | | | | | | [address] | | | | + + + + + + | Differentia | AUTOMATEDComment: | | EXTERNAL | | | l Type | Testing performed at | | LAB | | | | [facility];[address];[place] [address] | | | | + + + + + + | % Segmented | 54.16Comment: Testing | % | EXTERNAL | | | | performed at [facility];[address] | | LAB | | | Neutrophils | [address];[place] | | | | | | [address] | | | | + + + + + + | % | 12.84Comment: Testing | % | EXTERNAL | | | Lymphocytes | performed at [facility];[address] | | LAB | | | | [address];[place] | | | | | | [address] | | | | + + + + + + | % Monocytes | 16.65Comment: Testing | % | EXTERNAL | | | | performed at [facility];[address] | | LAB | | | | [address];[place] | | | | | | [address] | | | | + + + + + + | % | 15.14Comment: Testing | % | EXTERNAL | | | Eosinophils | performed at [facility];[address] | | LAB | | | | [address];[place] | | | | | | [address] | | | | + + + + + + | % Basophils | 1.21Comment: Testing | % | EXTERNAL | | | | performed at [facility];[address] | | LAB | | | | [address];[place] | | | | | | [address] | | | | + + + + + + | Absolute | 3.17Comment: Testing | 1.90 - 7.40 | EXTERNAL | | | Segmented | performed at [facility];[address] | K/uL | LAB | | | Neutrophils | [address];[place] | | | | | | [address] | | | | + + + + + + | Absolute | 0.75 (L)Comment: Testing | 1.00 - 3.90 | EXTERNAL | | | Lymphocytes | performed at [facility];[address] | K/uL | LAB | | | | [address];[place] | | | | | | [address] | | | | + + + + + + | Absolute | 0.97 (H)Comment: Testing | 0.00 - 0.80 | EXTERNAL | | | Monocytes | performed at [facility];[address] | K/uL | LAB | | | | [address];[place] | | | | | | [address] | | | | + + + + + + | Absolute | 0.89 (H)Comment: Testing | 0.00 - 0.50 | EXTERNAL | | | Eosinophils | performed at [facility] | K/uL | LAB | | | | [address];[place] | | | | | | [address] | | | | + + + + + + | Absolute | 0.07Comment: Testing | 0.00 - 0.10 | EXTERNAL | | | Basophils | performed at [facility] | K/uL | LAB | | | | [address];[place] | | | | | | [address] | | | | + + + [...] EXTERNAL | | | | performed at [facility];[place] | | LAB | | | | [address];[place] | | | | | | [address] | | | | + + + [...] EXTERNAL | | | | performed at [facility];[place] | | LAB | | | | [address];[place], [place] | | | | | | [address] | | | | + + [...] EXTERNAL | | | | performed at [facility] | | LAB | | | | [address];[place] | | | | | | [address] | | | | + + + [...] EXTERNAL | | | | performed at [facility];888 | mmol/L | LAB | | | | [address];[place] | | | | | | [address] | | | | + + + + + + | K | 3.6Comment: Testing | 3.5 - 4.9 | EXTERNAL | | | | performed at [facility];[place] | mmol/L | LAB | | | | [address];[place] | | | | | | [address] | | | | + + + + + + | Cl | 97 (L)Comment: Testing | 99 - 109 mmol/L | EXTERNAL | | | | performed at [facility];[address] | | LAB | | | | [address];[place] | | | | | | [address] | | | | + + + + + + | CO2 | 21 (L)Comment: Testing | 23 - 32 mmol/L | EXTERNAL | | | | performed at [facility] | | LAB | | | | [address];[place] | | | | | | [address] | | | | + + + + + + | Anion Gap | 16Comment: Testing | 5 - 20 mmol/L | EXTERNAL | | | | performed at [facility];[address] | | LAB | | | | [address];[place] | | | | | | [address] | | | | + + + + + + | Glucose, | 98Comment: Testing | 65 - 99 mg/dL | EXTERNAL | | | Fasting | performed at [facility];[place] | | LAB | | | | [address];[place] | | | | | | [address] | | | | + + + + + + | BUN | 5 (L)Comment: Testing | 8 - 25 mg/dL | EXTERNAL | | | | performed at [facility];[address] | | LAB | | | | [address];[place] | | | | | | [address] | | | | + + + + + + | Creatinine | 0.41 (L)Comment: Testing | 0.50 - 1.00 | EXTERNAL | | | | performed at [facility];[place] | mg/dL | LAB | | | | [address];[place] | | | | | | [address] | | | | + + + + + + | BUN/Creatin | 12Comment: Testing | | EXTERNAL | | | ine Ratio | performed at [facility];[place] | | LAB | | | | [address];[place] | | | | | | [address] | | | | + + + + + + | Calcium | 6.9 (L)Comment: Testing | 8.5 - 10.5 | EXTERNAL | | | | performed at [facility] [facility];888 | mg/dL | LAB | | | | [address];[place] | | | | | | [id number] | | | | + + + + + + | Protein, | 5.8 (L)Comment: Testing | 6.3 - 8.2 g/dL | EXTERNAL | | | Total | performed at [facility] | | LAB | | | | [address];[place] | | | | | | [address] | | | | + + + + + + | Albumin | 1.3 (L)Comment: Testing | 3.6 - 5.0 g/dL | EXTERNAL | | | | performed at [facility] | | LAB | | | | [address];[place] | | | | | | [address] | | | | + + + + + + | Globulin | 4.5Comment: Testing | 1.3 - 4.9 g/dL | EXTERNAL | | | | performed at [facility] | | LAB | | | | [address];[place] | | | | | | [address] | | | | + + + + + + | A/G Ratio | 0.3 (L)Comment: Testing | 1.0 - 2.4 | EXTERNAL | | | | performed at [facility] | | LAB | | | | [address];[place] | | | | | | [address] | | | | + + + + + + | Bilirubin | 0.9Comment: Testing | 0.1 - 1.5 mg/dL | EXTERNAL | | | Total | performed at [facility] | | LAB | | | | [address];[place] | | | | | | [address] | | | | + + + + + + | ALP, | 179 (H)Comment: Testing | 35 - 115 U/L | EXTERNAL | | | External | performed at [facility] | | LAB | | | | [address];[place] | | | | | | [address] | | | | + + + + + + | AST | 37Comment: Testing | 10 - 45 U/L | EXTERNAL | | | | performed at [facility] | | LAB | | | | [address];[place] | | | | | | [address] | | | | + + + + + + | ALT | 16Comment: Testing | 10 - 65 U/L | EXTERNAL | | | | performed at [facility] | | LAB | | | | [address];[place] | | | | | | [address] | | | | + + + [...] | | | | | | at [facility];[address];[place] [address] | | | | + + + [...] EXTERNAL | | | | performed at [facility] | | LAB | | | | [address];[place], [place] | | | | | | [address] | | | | + + + [...]
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
--- OUTSIDE RECORDS SUMMARY | ~2020-01-23 | XMS | Encounter Summary ---
Demographics + + + | Address | [address] | | | [place] [address] | + + + | Home Phone | | + + + | Preferred Language | Unknown | + + + | Marital Status | Single | + + + | Baptism Affiliation | [id number] | + + + [...] + | Joanne Pham | ECON | [address] | | | | | [place] | | | | | [phone] | | + + + + + | Viktor Son | EDDIE | Unknown | | + + + + + | Edd Gill | ECON | Unknown | | + + + + + | Conner Barber | ECON | Unknown | | + + + + + Care Team Providers + +------+ + | Care Chaplain Name | Role | Phone | + +------+ + | Trixie Rose PA-C | PCP | | + +------+ + Encounter Details +--------+ + + + + | Date | Type | Department | Care Team | Description | +--------+ + + + + | 09/16/ | Hospital | [facility] | Mitchell Stewart | Alcoholic cirrhosis | | 2019 | Encounter | [facility] | MD Conor [address] | of liver with | | | | [address] [place], [place] | ascites (HCC); | | | | [address] | [id number] | Ascites due to | | | | [place] | | alcoholic cirrhosis | | | | [id number] | | (HCC); Portal | | | | [phone] | | hypertension (HCC); | | | [...] | | | | | | | VITAMINS/COAT AGENT) TABS | | | | | [...]
--- OUTSIDE RECORDS SUMMARY | ~2020-01-23 | XMS | Encounter Summary ---
Demographics + + + | Address | [address] | | | [place] [address] | + + + | Home Phone [...] Author + + + | Author | [facility] | | | and [place] | + + + | Organization | [facility] | | | and [place] | + + + | Address | Unknown | + + + | Phone | Unavailable | + + + Support + + + + + | Name | Relationship | Address | Phone | + + + + + | Joanne Pham | ECON | [address] | | | | | [place] | | | | | [address] | | + + + + + | Viktor Son | EDDIE | Unknown | | + + + + + | Edd Gill | ECON | Unknown | | + + + + + | Conner Barber | ECON | Unknown | | + + + + + Care Team Providers + +------+ + | Care Computing Consultant Name | Role | Phone | + [...] + + | 08/31/ | Hospital | [facility] | Marialuisa Roman, | Alcohol dependence | | 2016 - | Encounter | [facility] | [address] | with intoxication | | | | [address] [place] | [place], [place] | with complication | | 09/09/ | | [place] [address] | [id number] | (HCC) (Primary Dx); | | 2015 | | [phone] | | Anemia, unspecified | | | | | Grant Lomas MD | type; 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 She was found to have severe [...] portal hypertension and lactulos e. Follow-up at [facility] with Juan Holguin. This patient's pathology report will be forwarded from Dr. Luis Miguel Bucio (pathologist in [place]). Code Status: Full Code Disposition: [facility] Discharge Condition: fair Follow-up Information Follow up with Trixie Rose PA-C In 1 week. Specialty: Internal Medicine Contact information: [address] [address] Discharge [...] by: Jose Carlos Albert MD, 09/10/2015 11:16 [facility] documented in this encounter Medications at [...] documented as of this encounter Progress Notes Jos eCarlos Albert MD - 09/09/2015 5:[address] [facility] Hospitalist Progress Note Shaila [...] Product Code RBC Leukocytes Reduced UNIT # [id number] UNIT ABO O UNIT RH POS CROSSMATCH [...] outlined above. Jose Carlos Albert 09/09/2015 17:37 [facility] Portions of this chart may have been created with [employer] voice recognition software. Occasi onal wrong-word or sound-alike substitutions may have occurred due to the inherent gallardo itations of voice recognition software. Please read the chart carefully and recognize, using context, where these substitutions have occurred itchell, Jose Carlos Chen MD - 09/08/2015 5:[address] [facility] Hospitalist Progress Note Shaila [...] outlined above. Jose Carlos Albert 09/08/2015 17:35 [facility] Portions of this chart may have been created with [employer] voice recognition software. Occasi onal wrong-word or sound-alike substitutions may have occurred due to the inherent gallardo itations of voice recognition software. Please read the chart carefully and recognize, using context, where these substitutions have occurred Jose Carlos Garcia MD - 09/07/2015 5:[address] [facility] Hospitalist Progress Note Shaila [...] Product Code RBC Leukocytes Reduced UNIT # [id number] UNIT ABO O UNIT RH POS CROSSMATCH [...] A p reliminary report was sent by [facility] on 09/06/2015 at 7:03 PM with no [...] outlined above. Jose Carlos Albert 09/07/2015 17:42 [facility] Portions of this chart may have been created with [employer] voice recognition software. Occasi onal wrong-word or sound-alike substitutions may have occurred due to the inherent gallardo itations of voice recognition software. Please read the chart carefully and recognize, using context, where these substitutions have occurred Grant Mace MD - 09/06/2015 2:[address] [facility] Hospitalist Progress Note Shaila [...] noting at the time of discharge from [facility] she was gi shawn 5 additional days [...] as outlined above. Grant Lomas 09/06/2015 14:33 [facility] Portions of this chart may have been created with [employer] voice recognition software. Occasi onal wrong-word or sound-alike substitutions may have occurred due to the inherent gallardo itations of voice recognition software. Please read the chart carefully and recognize, using context, where these substitutions have occurred arker, Grant Pardo MD - 0 09/05/2015 2:[address] 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 ending on her response to transfusion. T his will volume lieutenant firefighter and hopefully improve her functional status in [...] in the Assessment and Plan. Results for SHIALA SON ( ) as of 09/06/2015 14:34 [...] as outlined above. Grant Lomas 09/06/2015 14:46 [facility] Portions of this chart may have been created with [employer] voice recognition software. Occasi onal wrong-word or sound-alike substitutions may have occurred due to the inherent gallardo itations of voice recognition software. Please read the chart carefully and recognize, using context, where these substitutions have occurred arker, Grant Pardo MD - 0 09/04/2015 2:[address] [facility] Hospitalist Progress Note Shaila [...] as outlined above. Grant Lomas 09/06/2015 14:58 [facility] Portions of this chart may have been created with [employer] voice recognition software. Occasi onal wrong-word or [...] MD - 09/03/2015 8:[address] [facility] Hospitalist Progress Note Shaila [...] smear. Zacarias awaiting the records from [facility] to determine the type of [...] sam was made to accommodate the 8 Armenian paracentesis trocar catheter, which were advanced into [...] as outlined above. Grant Lomas 09/03/2015 8:48 [facility] Portions of this chart may have been created with [employer] voice recognition software. Occasi onal wrong-word or [...] ght be different from the original. [facility] Hospitalist Progress Note Shaila [...] as outlined above. Grant Lomas 09/02/2015 9:45 [facility] Portions of this chart may have been created with [employer] voice recognition software. Occasi onal wrong-word or [...] by: Robel Taylor MD, 09/08/2015 11:59 [facility] Robel Taylor MD at 0 09/08/2015 12:00 PM PDTParkerGrant MD - 09/01/2015 6:43 PM PDTFormatting of this note mi ght be different from the original. Patient: Shaila Son : 1970: Age: 45 y.o. MedRec: [id number] Admission date: 09/01/2015 Hospital day #: 0 Physician author: Grant Lomas MD HISTORY AND PHYSICAL CHIEF COMPLAINT: Patient transferred to this facility from [facility] without emergency room rec ords or [...] of 4 L paracentesis in 03/29/[address] [facility] History of seizures at the patient's order from [facility] being divalproex DR 150 mg 3 times [...] at the time of discharge 04/01/[address] [facility] was tete ing Cefpodoxime 200 mg daily [...] CKTOTAL No results for input(s): PHART, PO2ART, WXU1GPN, MLJ4IXB, BEART, [id number] in the last 168 h ours. Xray [...] by: Grant Lomas MD 09/01/2015 18:[address] [facility] Portions of this chart may have been created with [employer] voice recognition software. Occasi onal wrong-word or sound-alike substitutions may have occurred due to the inherent gallardo itations of voice recognition software. Please read the chart carefully and recognize, using context, where these substitutions have occurred documented in this enc ounter Miscellaneous Notes Plan of Care - Janeen Srivastava MSW - 09/10/2015 11:49 AM PDTPatient to [facility]. This CM faxed over the SNF transfer orders, PASRR, and RXs. All other documentation is placed in manila folder and in ghost chart. This CM spoke with Irena who states that she will look over the orders and call this write r back with a bean picker machine operator time. Electronically signed by: HANNAH Contreras 09/10/2015 11:52 Spoke with Josephine who reported a bean picker machine operator time of 1300. This Cm let patient [...] [facility] FACILITY TRANSFER ORDERS Patient Name: Shaila Sno Patient : 1970 Gender: female Date of Admission: 09/01/2015 Date of Discharge: 09/10/2015 Admitting Provider: Marialuisa Roman MD Discharging Provider: Jose Carlos Albert MD Consultants: none PCP: Juan Holguin [facility] transferring to: [facility] Provider after transfer: Per SNF CODE STATUS: [x] Attempt CPR [] Do not resuscitate If patient is pulseless and not breathing, RN/CHANGE MANAGEMENT MANAGER may pronounce . Advanced Directives included: [] [...] for this patient. Diet: [] As tolerated STORE ADMINISTRATIVE ASSISTANT may upgrade or downgrade diet as condition [...] Whole [] Thin Liquids [] Cut-up [] Bastian Thick [] Advanced Chopped [] Honey Thickened [] Chopped [] Advanced Ground [] 1:1 feedings [] Ground/Pureed [] Other: Tube Feedings: [] PEG [] GT [] JT [] NGT [] Formula type: (Dynamometer Tester Engine may change/substitute if indicated). [] Continuous Rate: [...] [x] OT Evaluation & Management for: [] STORE ADMINISTRATIVE ASSISTANT Evaluation &Management for: [] Other: Wound/Skin Care: [...] Carlos Hester MD, certify that post hospital prison care is medically nec essary on a continuing basis for any of the conditions for which he/she received care during this hospitalization. Check one: [x] Skilled [] Intermediate Additional Orders/Instructions: Physician's signature: 09/10/2015 11:13 [facility] USE ONLY: [] Admitting orders [...] weight-bearing History of Presenting Problem: Transfer from [facility], no records or labs available. P t unable to provide history. Reportedly stopped medications x 1 month ago. Hx 4L paracente sis @ [facility] 03/23; hx seizures, chronic anemia. Now- acute [...] for technique w/ IV pole Level of Elk : contact guard assist, verbal cues required Assistive Device: (IV stand) Distance (feet): 300 Transfers Using IV stand for support Sit-Stand, Level of Elk: supervision required Stand-Sit, Level of Elk: supervision required Uxv-Vaupr-Ead, Assistive Device: none Safety Issues: balance decreased during turns, step length decreased, loses balance backwar d Impairments: impaired balance, strength decreased, decreased flexibility, postural control impaired, muscle tone abnormal Bed Mobility Assistive Device: bed rails Supine to Sit, Level of Elk: minimum assist (75% patient effort) Sit to Supine, Level of Elk: modified independence Impairments: impaired balance, strength decreased [...] Activity Type: supine to sit/sit to supine Elk Level: independent Assistive Device: none Time to Achieve: 5 - 7 days Goal Status: progressing toward goal, revised Transfer Training Goal, Activity Type: sit to stand/stand to sit Elk Level: modified independence Assistive Device: 2 wheeled walker (FWW) Time to Achieve: 5 - 7 days Goal Status: progressing toward goal, revised Gait Training Goal, Elk Level: modified independence Assistive Device: 2 wheeled [...] Calls appropriately. Sleeping t/o the night in [facility]. Moderate amount of liquid stool this [...] FWW with SBA Ambulated an est 250'. MOLD YARN SUPERVISOR bro ught a different IV pole to provide safer ambulating with pole to/from bathroom. Pt report s and nursing confirms that pt is Independent in her room. Education: Safety with functional mobility Treatment Provided: ADL and functional mobility training. Patient Status/Goals Reflects last filed data of patient status; may be from multiple contributors. ADLs Grooming, Level of Elk: supervision required Assistive Device: none Grooming Assess/Train, [...] therapies. She stood at the sink to community health promoter her te eth with supervision, Pt fatigued [...] overall everything was oka y. Patient is Mandaeism and I wished her good health. Spiritual Intervention: Patient welcomed senior business broker visit and I wished her good health. Spiritual Outcomes: Patient thank me for the visit. Spiritual Goals/Follow up: [employer] will continue to provide ongoing emotional/spirtiual support [...] remain alert and oriented through 09/06/2015. 5.) Shiala will be free of falls by 09/06/2015. [...] weight-bearing History of Presenting Problem: Transfer from [facility], no records or labs available. P t unable to provide history. Reportedly stopped medications x 1 month ago. Hx 4L paracente sis @ [facility] 03/23; hx seizures, chronic anemia. Now- acute [...] on L during initial contact. Level of Elk : supervision required Assistive Device: 2 wheeled walker (FWW) Distance (feet): 120 Transfers Sit-Stand, Level of Elk: supervision required Stand-Sit, Level of Elk: supervision required Nxj-Ahivl-Taf, Assistive Device: 2 wheeled walker (FWW) Toilet, Assistive Device: none (recommend FWW as pt is slightly unsteady on her feet) Safety Issues: balance decreased during turns, step length decreased, loses balance backwar d Impairments: muscle tone abnormal, strength decreased, impaired balance, coordination impai red Bed Mobility Assistive Device: bed rails Supine to Sit, Level of Elk: modified independence Sit to Supine, Level of Elk: independent Impairments: impaired balance, strength decreased Balance [...] in lower legs and ankles STG GOALS Elk Level: independent Assistive Device: none Time to Achieve: 2 days Goal Status: new Elk Level: modified independence Assistive Device: 2 wheeled walker (FWW) Time to Achieve: 2 days Goal Status: new Gait Training Goal, Elk Level: modified independence Assistive Device: 2 wheeled [...] 09/07/2015 12:45 lan of Care - [facility] er, Paulina Goddard OT - 09/07/2015 12:32 [...] from multiple contributors. ADLs LB, Level of Elk: supervision required, set up required LB Dressing [...] 09/07/2015 5:55 lan of Care - Jamila Oilva RN - 09/06/2015 8:39 PM PDTProblem: Patient [...] planning: I received a phone call from [facility] katheryn [place] this morning. She states that they have a bed available and would be able to accept Ms Shaila Son when she is medially stable for discharge. [facility]ather[facility] [place] does request for the doctor to include an order for Ativan PO and IM o n her SNF discharge order for possible Seizure activity. Otherwise no concerns with taking h er. Dr Lomas notified of the above information. Electronically signed by: Yumiko Anderson RN 09/06/2015 10:01 [facility] [place] notified patient will be medially stable for discharge tomorrow, Sunday , 09/07/2015. Patient also notified of the above information. Electronically signed by: Yumiko Anderson RN 09/06/2015 11:40 Updated doctor progress notes faxed to [facility] per her request, fax # . Electronically [...] is a 45 y.o. who transferred from [facility], no records or labs available. Pt unable to provide history. Reportedl y stopped medications x 1 month ago. Hx 4L paracentesis @ [facility] 03/23; hx seizures, chronic anemia. Now- acute [...] stairs at home. Transfers Sit-Stand, Level of Elk: supervision required Toilet, Assistive Device: none (recommend FWW as pt is slightly unsteady on her feet) Safety Issues: balance decreased during turns, step length decreased, loses balance backwar d Impairments: muscle tone abnormal, strength decreased, impaired balance, coordination impai red Bed Mobility Assistive Device: bed rails Supine to Sit, Level of Elk: modified independence Sit to Supine, Level of Elk: independent Impairments: impaired balance, strength decreased Balance [...] in lower legs and ankles STG GOALS Elk Level: independent Assistive Device: none Time to Achieve: 2 days Goal Status: new Elk Level: modified independence Assistive Device: 2 wheeled walker (FWW) Time to Achieve: 2 days Goal Status: new Gait Training Goal, Elk Level: modified independence Assistive Device: 2 wheeled [...] agrees and would like to go to [place] as she is from [place] and family and friends could visit. If [facility] does not have any beds available, she is open to [place]. Referral has been faxed to [facility]. Yumiko Anderson RN 09/05/2015 12:23 lan of [facility] - Steve Salamanca RN - 09/05/2015 5:09 [...] who presents to therapy for Transfer from [facility], no records or labs available. Pt unable to provid e history. Reportedly stopped medications x 1 month ago. Hx 4L paracentesis @ [facility] 03/23; hx seizures, chronic anemia. Now- acute [...] from multiple contributors. ADLs Toileting, Level of Elk: contact guard assist, verbal cues required, set up requir ed Assistive Device: grab bar Toileting Assess/Train, Position: sitting, supported standing Toileting Assess/Train, Impairments: impaired balance, strength decreased, coordination imp aired Cognitive Mood/Behavior: hypoactive (quiet, withdrawn), flat affect Orientation: oriented x 4 Speech: (very soft) Transfers Toilet, Level of Elk: contact guard assist, verbal cues required, set [...] ctulose given. Multiple loose BM's today. lan [facility] Sabrina jimenes RN - 09/03/2015 5:25 AM [...] Anticipate possible paracentesis again today. lan of [facility] - Tresa Viera RN - 09/02/2015 6:23 [...] neurologic deterior ation7. pain8. renal dysfunction9. respiratory gwegoruqcu42. situational response Intervention: Promote Neurologic Homeostasis Patient [...] medicated so I visited with her S.O. dEd guzman ( , Home (this is the land line at Aunt Angy's home as there is no Cell p radha chiseler head out there) #[phone]). He said that the living situation is as follows. She has a room in her Aunmauricio Travis's home located in [place], [place] that she doesn't use very o ften where four of her Cousins live as well. She normally lives with Edd in a mobile that is located below Aunt Angy's home. There are three steps leading to the entrance on the [facility]. Trixie Rose PA-C at the [facility] is her PCP. I called brian amaro and had them place her name on Shaila's chart. She uses the pharmacy located at [facility] first then uses the [place] [facility] second. She owns a cane, a four wheel walker, hand rails by the tub/shower and toilet, a hand held shower head and uses a metal fold up chair in the tub. She has used the [employer] lending closet for most of her DME and then would li ke to use [facility] located in [place], [place]. They said that [facility] would be fine if they would come out. They said that the four Cousins staying at Aunmauricio Travis 's home are all drinking all the time. Edd said that his home would be a safe place for H H to visit though. Edd said that she would go back to [place] as her "Plan B" as she has [...] with her Drug and Alcohol Counselor, Andreia ([phone]), from [facility] and that she had helped arrange for her to come to [facility]. There was a questions as to [...] Andres Mancera MD PATIENT NAME: HUY, | [facility] | | SHAILA ALMEIDA GENDER: Romulo [...] | | | preparation was performed by [facility] [address] [place] [address] | | | [place] [address] and [facility] | | | [address] [place] [address]. Professional | | | interpretation was performed by [facility] | | | Center [facility] - [address] [place] [address] (Medical | | | Director: Bebeto Ruiz M.D.; IA#:[id number]).8 Diagnostician: | | | Gladis Johnson M.S., KAVIN([facility]), [facility] Recordak Operator | | | Diagnostician: Bebeto Ruiz [...] [address] | [place] | [phone] | | [facility] | | [address] | | | - LABORATORY | | [...] [address] | [place] | [phone] | | [facility] | | [address] | | | - LABORATORY | | [...] (L) | 7 - 18 mg/dL | [facility] | | | | | | ST. [...] mL/min/1.73m2 | [facility] | | | [place] | RATE,ESTIMATED | | MEDICAL | | | | mL/min/1.64i5Shdc than | | CENTER - | | [...] [address] | [place] | [phone] | | [facility] | | [address] | | | - LABORATORY | | [...] + + + | UNIT # | [id number] | | [facility] | | | | [...] St | [place] | | | [facility] | | [address] | | | - BLOOD BANK | [...] + | [facility] | [address] | [place] | [phone] | | [facility] | | [address] | | | - LABORATORY | | [...] mL/min/1.73m2 | [facility] | | | [place] | RATE,ESTIMATED | | MEDICAL | | | | mL/min/1.79x1Saly than | | CENTER - | | [...] | | ine Ratio | | | [facility] | | | | | [...] [address] | [place] | [phone] | | [facility] | | [address] | | | - LABORATORY | | [...] [address] | [place] | [phone] | | [facility] | | [address] | | | - LABORATORY | | [...] | Procedure Note | + + | Ejrmaine, Rad Results In - 09/08/2015 1:40 PM [...] + | [facility] | [address] | [place] | [phone] | | [facility] | | [address] | | | - LABORATORY | | [...] [address] | [place] | [phone] | | [facility] | | [address] | | | - LABORATORY | | [...] | 0.65 | 0.60 - 1.30 | [facility] | | | | | mg/dL | [facility] | | | | | | MEDICAL | | | | | | CENTER - | | | | | | LABORATORY | | + + + + + + | eGFR, | >60Comment: GLOMERULAR | >=60 | [facility] | | | non- | FILTRATION | mL/min/1.73m2 | [facility] | | | [place] | RATE,ESTIMATED | | MEDICAL | | | | mL/min/1.71b3Jjjm than | | CENTER - | | [...] + | [facility] | [address] | [place] | [phone] | | [facility] | | [address] | | | - LABORATORY | | [...] ST. | [address] | [place] | [phone] | | [facility] | | [address] | | | - LABORATORY | | | | + + + + + Surgical Pathology Exam (09/08/2015 12:00 AM PDT) + + | Specimen | + + | Soft tissue sample | | (specimen) | + + + + + | Narrative | Performed At | + + + | SPECIMEN(S): A LIVER NEEDLE BIOPSY SPECIMEN SOURCE: A. LIVER | [facility] | | NEEDLE BIOPSY CLINICAL HISTORY: [...] may not be | | | fully field service representative should be considered. Noninvasive MRI studies | | | may help to further characterize the lesion if clinical concern | | | remains. Results discussed with Dr. Albert by Dr. More on | | | September 09 at 3:10 p.m. [facility]:C2NR GROSS DESCRIPTION: The specimen, | | [...] for | | | neoplastic hepatocellular nodules. [facility] PERFORMING LABORATORY: | | | Tissue processing and slide preparation were performed by [facility] | | | [facility], [place] [address] | | | (Waredresser: Bebeto Ruiz M.D.; CLIA#: [id number]). | | | Professional interpretation was performed by [facility] | | | [facility], [address] [place] [address], [place], | | | [place] [address] (Waredresser: Jonny Ernandez M.D.; CLIA#: | | | [id number]). Diagnostician: Ana M Holm MD Pathologist | [...] Jossy | | | | | | [facility] | | | | | | [place], [address], | | | | | | [place] [address] | | | | + + + + + + + + | Specimen | + + | Blood specimen | | (specimen) | + + + + + + + | Performing | Address | City/State/Zipcode | Phone Number | | Organization | | | | + + + + + | [facility] | [address] | [place] [address] | [phone] | + + + + + PTT [...] + | [facility] | [address] | [place] | [phone] | | [facility] | | [address] | | | - LABORATORY | | [...] | + + + + + | [facility] | [address] | [place] | [phone] | | [facility] | | [address] | | | - LABORATORY | | [...] | Basophils | | K/uL | [facility] | | | | | [...] [address] | [place] | [phone] | | [facility] | | [address] | | | - LABORATORY | | [...] 8 | 7 - 18 mg/dL | [facility] | | | | | | [facility] | | | | | [facility]ICAL | | | | | | CENTER - | | | | | | LABORATORY | | + + + + + + | Creatinine | 0.61 | 0.60 - 1.30 | [facility] | | | | | mg/dL | [facility] | | | | | | MEDICAL | | | | | | CENTER - | | | | | | LABORATORY | | + + + + + + | eGFR, | >60Comment: GLOMERULAR | >=60 | [facility] | | | non- | FILTRATION | mL/min/1.73m2 | [facility] | | | [place] | RATE,ESTIMATED | | MEDICAL | | | | mL/min/1.45k5Hcfy than | | CENTER - | | [...] [address] | [place] | [phone] | | [facility] | | [address] | | | - LABORATORY | | [...] + + + | UNIT # | [id number] | | [facility] | | | | [...] ST. | [address] | [place], [place] | | | [facility] | | [address] | | | - BLOOD BANK | [...] | | | report was sent by [facility] on 09/06/2015 at 7:03 PM with no [...] | | preliminary report was sent by [facility] on 09/06/2015 at 7:03 PM with | [...] | |A preliminary report was sent by [facility] on 09/06/2015 at 7:03 PM with no [...] + | [facility] | [address] | [place] | [phone] | | [facility] | | [address] | | | - LABORATORY | | [...] mL/min/1.73m2 | [facility] | | | [place] | RATE,ESTIMATED | | MEDICAL | | | | mL/min/1.83i4Slgu than | | CENTER - | | [...] 7.3 (L) | 8.3 - 10.5 | [facility] | | | | | mg/dL | [facility] | | | | | | MEDICAL | | | | | | CENTER - | | | | | | LABORATORY | | + + + + + + | Albumin | 1.6 (L) | 3.2 - 5.0 g/dL | [facility] | | | | | | ST. [...] [address] | [place] | [phone] | | [facility] | | [address] | | | - LABORATORY | | [...] St | [place] | | | [facility] | | [address] | | | - BLOOD BANK | [...] + + + | UNIT # | [id number] | | [facility] | | | | [...] + | [facility] | [address] | [place] | | | [facility] | | [address] | | | - BLOOD BANK | [...] | | Code | | | [facility] | | | | | | MEDICAL | | | | | | CENTER - | | | | | | BLOOD BANK | | + + + + + + | UNIT # | [id number] | | [facility] | | | | [...] St | [place] | | | [facility] | | [address] | | | - BLOOD BANK | [...] + | [facility] | [address] | [place] | [phone] | | [facility] | | [address] | | | - LABORATORY | | [...] mL/min/1.73m2 | [facility] | | | [place] | RATE,ESTIMATED | | MEDICAL | | | | mL/min/1.38k6Gmjt than | | CENTER - | | [...] ST. | [address] | [place] | [phone] | | [facility] | | [address] | | | - LABORATORY | | [...] + | [facility] | [address] | [place] | [phone] | | [facility] | | [address] | | | - LABORATORY | | [...] [address] | [place] | [phone] | | [facility] | | [address] | | | - LABORATORY | | [...] + | [facility] | [address] | [place] | [phone] | | [facility] | | [address] | | | - LABORATORY | | [...] mL/min/1.73m2 | [facility] | | | [place] | RATE,ESTIMATED | | MEDICAL | | | | mL/min/1.08y8Epnd than | | CENTER - | | [...] [address] | [place] | [phone] | | [facility] | | [address] | | | - LABORATORY | | [address] | [place] | [phone] | | [facility] | | [address] | | | - LABORATORY | | [...] | | | | | | | [id number] | | | | | | Source [...] Performed: | | | | | | [facility] | | | | | | [facility], [address] | | | | | | [facility] [place] [address] | | | | + + + [...] [facility] | [address] | [place] [address] | [phone] | + + + + + Ammonia [...] [address] | [place] | [phone] | | [facility] | | [address] | | | - LABORATORY | | [...] | 0.61 | 0.60 - 1.30 | [facility] | | | | | mg/dL | [facility] | | | | | | MEDICAL | | | | | | CENTER - | | | | | | LABORATORY | | + + + + + + | eGFR, | >60Comment: GLOMERULAR | >=60 | [facility] | | | non- | FILTRATION | mL/min/1.73m2 | [facility] | | | [place] | RATE,ESTIMATED | | MEDICAL | | | | mL/min/1.72d0Hulu than | | CENTER - | | [...] [address] | [place] | [phone] | | [facility] | | [address] | | | - LABORATORY | | [...] [address] | [place] | [phone] | | [facility] | | [address] | | | - LABORATORY | | | | + + + + + Medical Cytology (09/03/2015 12:00 AM PDT) + + | Specimen | + + | | + + + + + | Narrative | Performed At | + + + | ORDERING PHYSICIAN: Grant Lomas MD PATIENT NAME: [facility] | | SHAILA ALMEIDA GENDER: Romulo [...] | | | interpretation was performed by [facility] | | | [place] - [address] [place] [address] (Medical | | | Director: Bebeto Ruiz M.D.; [facility]#:[id number]).8 Technical | | | preparation was performed by [facility] [id number] [facility] | | | [address]., [place] [address] and [facility] | | | [address] [place] [address]. Diagnostician: | | | Gladis Johnson M.S., CT(ASCP), [facility] Recordak Operator | | | Diagnostician: Ana M [...] sam was made to accommodate the 8 Armenian paracentesis trocar | | | catheter, which [...] made to accommodate the 8 | | Armenian paracentesistrocar catheter, which were advanced into the [...] | | | | | | | [id number] | | | | | | Source [...] | | | | | | Jossy Halls | | | | | | [facility], [address] | | | | | | [place] [address] | | | | + + + [...] [address] | [place] [address] | [phone] | + + + + + Culture, [...] ST. | [address] | [place], [place] | [phone] | | [facility] | | [address] | | | - LABORATORY | | [...] + | [facility] | [address] | [place], [place] | [phone] | | [facility] | | [address] | | | - LABORATORY | | [...] [address] | [place] | [phone] | | [facility] | | [address] | | | - [...] [address] | [place] | [phone] | | [facility] | | [address] | | | - LABORATORY | | [...] [address] | [place] | [phone] | | [facility] | | [address] | | | - LABORATORY | | [...] + + + | Color, Body | Salvo | | [facility] | | | Fluid [...] ST. | [address] | [place] | [phone] | | [facility] | | [address] | | | - LABORATORY | | [...] [place] | | | | | | [address] | | | | + + + + + + + + | Specimen | + + | Blood specimen | | (specimen) | + + + + + + + | Performing | Address | City/State/Zipcode | Phone Number | | Organization | | | | + + + + + | [facility] | [address] | [place] [address] | [phone] | + + + + + Ferritin [...] [address] | [place] | [phone] | | [facility] | | [address] | | | - LABORATORY | | [...] [address] | [place] | [phone] | | [facility] | | [address] | | | - LABORATORY | | [...] ST. | [address] | [place], [place] | [phone] | | [facility] | | [address] | | | - LABORATORY | | [...] | | B-12 | <145 | | [facility] | | | | pg/mLINDETERMINATE: [...] [address] | [place] | [phone] | | [facility] | | [address] | | | - LABORATORY | | [...] [address] | [place] | [phone] | | [facility] | | [address] | | | - LABORATORY | | [...] [place] | | | | | | [address] | | | | + + + [...] [address] | [place] [address] | [phone] | + + + + + Protime [...] [address] | [place] | [phone] | | [facility] | | [address] | | | - LABORATORY | | [...] [address] | [place] | [phone] | | [facility] | | [address] | | | - LABORATORY | | [...] + | [facility] | [address] | [place] | [phone] | | [facility] | | [address] | | | - LABORATORY | | [...] | non- | FILTRATION | mL/min/1.73m2 | [facility] | | | [place] | RATE,ESTIMATED | | MEDICAL | | | | mL/min/1.38y0Dnpb than | | CENTER - | | [...] | | | | | mg/dL | [facility] | | | | | | MEDICAL | | | | | | CENTER - | | | | | | LABORATORY | | + + + + + + | Albumin | 1.3 (L) | 3.2 - 5.0 g/dL | [facility] | | | | | | [facility] | | | | | [...] [address] | [place] | [phone] | | [facility] | | [address] | | | - LABORATORY | | [...] [address] | [place] | [phone] | | [facility] | | [address] | | | - LABORATORY | | [...] [address] | [place] | [phone] | | [facility] | | [address] | | | - LABORATORY | | [...] - 1.030 | [facility] | | | [place], | | | [facility] | | [...] [address] | [place] | [phone] | | [facility] | | [address] | | | - LABORATORY | | [...] | | | interpretation was performed by [facility] | | | [place] Branch - [address] [place] [address] (Medical | | | Director: Bebeto Ruiz M.D.; [facility]#:[id number]).8 Technical | | | preparation was performed by [facility] [id number] | | | [address], [place] [address] and [facility], [place] | | | [address] [place] [address]. Diagnostician: | | | Gladis Johnson M.S., CT([facility]), [facility] Recordak Operator | | | Diagnostician: Ana M [...] ST. | [address] | [place], [place] | [phone] | | [facility] | | [address] | | | - LABORATORY | | [...] [address] | [place] | [phone] | | [facility] | | [address] | | | - LABORATORY | | [...] + | [facility] | [address] | [place] | [phone] | | [facility] | | [address] | | | - LABORATORY | | [...] mL/min/1.73m2 | [facility] | | | [place] | RATE,ESTIMATED | | MEDICAL | | | | mL/min/1.98i9Fdod than | | CENTER - | | [...] [address] | [place] | [phone] | | [facility] | | [address] | | | - LABORATORY | | [...] [address] | [place] | [phone] | | [facility] | | [address] | | | - LABORATORY | | [...] ST. | [address] | [place], [place] | | | [facility] | | [address] | | | - BLOOD BANK | [address] | [place] | [phone] | | [facility] | | [address] | | | - LABORATORY | | [...] | | | | | | | [facility] 09/02/15 at 0845, Give 1 dose [...] | | | | 30 Minutes, ONCE, [facility] 09/02/15 at | | | | [...] 8:37 | | | | | on [facility] 09/02/15 at 0945 | | AM [...] PDT | | | | | ONCE, [facility] 09/02/15 at 1900, For 1 | [...] PDT | | | | | ONCE, [facility] 09/01/15 at 2115, For 1 | [...] PDT | | | | | ONCE, [facility] 09/09/15 at 1045, For 1 | [...] 8:08 | | | | | ONCE, [facility] 09/09/15 at 0815, For 1 | [...] | | | | First dose on [facility] 09/02/15 at | | AM PDT [...]
--- OUTSIDE RECORDS SUMMARY | ~2020-01-23 | XMS | Encounter Summary ---
Demographics + + + | Address | [address] | | | [place] [address] | + + + | Home Phone | | + + + | Preferred Language | Unknown | + + + | Marital Status | Single | + + + | Islam Affiliation | 1041 | + + + | Race | or | + + + | Ethnic Group | Not or | + + + Author + + + | Author | [facility] | | | and [place] | + + + | Organization | [facility] | | | and [place] | + + + | Address | Unknown | + + + | Phone | Unavailable | + + + Support + + + + + | Name | Relationship | Address | Phone | + + + + + | Joanne Pham | ECON | [address] | | | | | [place] | | | | | [address] | | + + + + + | Viktor Son | [place] | Unknown | | + + + + + | Edd Gill | ECON | Unknown | | + + + + + | Conner Barber | ECON | Unknown | | + + + + + Care Team Providers + +------+ + | Care Senior Procurement Specialist Name | Role | Phone | [...] | | | [address] | [place] [address] | | | | | [place], [place] | [phone] | | | | | [address] | | | | | | [phone] | | | +--------+ + + + [...] and has an appt on 06/08 with [facility] and will give us a call after.Electronically signed by Deborah Mancuso at 06/05 9:25 AM PSTTelephone Encounter - Anabella Serrano - 06/04/2019 4:04 PM Zach/Kayli dias, is returning call for Referral and would like a call back. Additional Call Details: Calling with phone numbers requested: [phone] Patients direct number [phone] Conner/friend elephone Encounter - Princess Tidwell - 05/27/2019 9:39 AM PSTTried calling back to inform that referral is in revie w, number listed is a fax number. 9:4 0 AM PSTTelephone Encounter - Gina Hinton I - 05/27/2019 8:30 AM PSTMichael- Forrest, is calling regarding Referral and would like a call back. Additional Call Details: Requesting referral status. Call back at: [phone] If this is a symptom based call, was patient offered triage? Not Applicable If this is a symptom based call and you were unable to immediately transfer the call to a miguelina mueller tire fabricator was caller made aware that if at any time she feels it is an emergency they sh ould call 911 or go to the nearest emergency room? not applicable documented in this encounter Plan of Treatment Not on filedocumented as of this encounter Visit Diagnoses Not on filedocumented in this encounter"
--- OUTSIDE RECORDS SUMMARY | ~2020-01-23 | XMS | Clinical Summary ---
Demographics + + + | Address | [address] | | | [place] [address] | + + + | Home Phone | | + + + | Preferred Language | Unknown | + + + | Marital Status | Single | + + + | Voodoo Affiliation | 1041 | + + + [...] + | Joanne Pham | ECON | [address] | | | | | [place] | | | | | [address] | | + + + + + | Viktor Son | EDDIE | Unknown | | + + + + + | Edd Gill | ECON | Unknown | | + + + + + | Conner Barber | ECON | Unknown | | + + + + + Care Team Providers + +------+ + | Care Infantry Assaultman Name | Role | Phone | + [...] | | | | | | | VITAMINS/MANAGER FRONT OFFICE) TABS | | | | | | [...] | | + +--------+ +--------+ +---------+--------+ | [facility] | IHS | [id number] | 05/12/19 | | | Indemn | | SERVICE | YELLOW | | 18-Pre | | | ity | | | HAWK | | sent | | | | + +--------+ +--------+ +---------+--------+ | [employer] [place] | MEDICA | [id number] | | [phone] | | Medica | | | ID [place] | | 011-Pr | 2 | | id | | | PLUS | | esent | | | | + +--------+ +--------+ +---------+--------+ | [facility] | IHS | [id number] | | | | Indemn | | SERVICE | YELLOW | | 015-Pr | | | ity | | | HAWK | | esent | | | | + +--------+ +--------+ +---------+--------+ | [employer] [place] | MEDICA | [id number] | | [phone] | | Medica | | | ID [...] Person | Self | [birth year] | [address] | | | al/Fam | | 1970 | [phone] | [place] [address] | | | deann | | | 7 (Home) | | + +--------+ +--------+ + + | Shaila Son | Person | Self | [birth year] | | [address] 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
--- OUTSIDE RECORDS SUMMARY | ~2020-01-23 | XMS | Encounter Summary ---
Demographics + + + | Address | [address] | | | [place] [address] | + + + | Home Phone [...] + | Joanne Pham | ECON | [address] | | | | | [place] | | | | | [address] | | + + + + + | Viktor Son | EDDIE | Unknown | | + + + + + | Edd Gill | ECON | Unknown | | + + + + + | Conner Barber | ECON | Unknown | | + + + + + Care Team Providers + +------+ + | Care Bottle Carrier Name | Role | Phone | + [...] | | [place] | [place] [address] | | | | | [address] | [phone] | | | | | [phone] | | | +--------+ + + + [...] 11:26 AM PDTOutside record: Cytology report from [facility], dos: 7-26-17. Sent to scan. documented in this encounter Plan of Treatment Not on filedocumented as of this encounter Visit Diagnoses Not on filedocumented in this encounter"
--- OUTSIDE RECORDS SUMMARY | ~2020-01-23 | XMS | Encounter Summary ---
Demographics + + + | Address | [address] | | | [place] [address] | + + + | Home Phone [...] + | Joanne Pham | ECON | [address] | | | | | [place] | | | | | [address] | | + + + + + | Viktor Son | EDDIE | Unknown | | + + + + + | Edd Gill | ECON | Unknown | | + + + + + | Conner Barber | ECON | Unknown | | + + + + + Care Team Providers + +------+ + | Care Utilization Management Manager Name | Role | Phone | + +------+ + | Trixie Rose PA-C | PCP | | + +------+ + Encounter Details +--------+ + + + + | Date | Type | Department | Care Team | Description | +--------+ + + + + | 11/17/ | Orders Only | [facility] | Provider, | | | 2018 | | SYSTEM GENERIC OP | [address] | | | | | CON[address] | [place] | | | | | [address] | [place] [address] | | | | | [address] | | | | | | [phone] | | | +--------+ + + + [...]
--- OUTSIDE RECORDS SUMMARY | ~2020-01-23 | XMS | Encounter Summary ---
Demographics + + + | Address | [address] | | | [place] [address] | + + + | Home Phone [...] + | Joanne Pham | ECON | [address] | | | | | [place] | | | | | [address] | | + + + + + | Viktor Son | EDDIE | Unknown | | + + + + + | Edd Gill | ECON | Unknown | | + + + + + | Conner Barber | ECON | Unknown | | + + + + + Care Team Providers + +------+ + | Care Visualizer Name | Role | Phone | + +------+ + | Trixie Rose PA-C | PCP | | + +------+ + Encounter Details +--------+ + + + + | Date | Type | Department | Care Team | Description | +--------+ + + + + | 09/16/ | Hospital | [facility] | Mitchell Stewart | Alcoholic cirrhosis | | 2019 | Encounter | [facility] | MD Conor [address] | of liver with | | | | [address] [place], [place] | ascites (HCC); | | | | [address] | [address] | Ascites due to | | | | [place] | | alcoholic cirrhosis | | | | [address] | | (HCC); Portal | | | | [phone] | | hypertension (HCC); | | | [...] | | | | | | | VITAMINS/BLENDING TECHNICIAN) TABS | | | | | | [...]
--- OUTSIDE RECORDS SUMMARY | ~2020-01-23 | XMS | Encounter Summary ---
Demographics + + + | Address | [address] | | | [place] [address] | + + + | Home Phone | | + + + | Preferred Language | Unknown | + + + | Marital Status | Single | + + + | Judaism Affiliation | 1041 | + + + | Race | or | + + + | Ethnic Group | Not or | + + + Author + + + | Author | [facility] | | | and [place] | + + + | Organization | [facility] | | | and [place] | + + + | Address | Unknown | + + + | Phone | Unavailable | + + + Support + + + + + | Name | Relationship | Address | Phone | + + + + + | Joanne Pham | ECON | [address] | | | | | [place] | | | | | [address] | | + + + + + | Viktor Son | EDDIE | Unknown | | + + + + + | Edd Gill | ECON | Unknown | | + + + + + | Conner Barber | ECON | Unknown | | + + + + + Care Team Providers + +------+ + | Care Small Machine Bindery Operator Name | Role | Phone | [...] | | | [address] | [place] [address] | | | | | [place], [place] | [phone] | | | | | [address] | | | | | | [phone] | | | +--------+ + + + [...] and has an appt on 06/08 with [facility] and will give us a call after.Electronically signed by Deborah Mancuso at 06/05 9:25 AM PSTTelephone Encounter - Anabella Serrano - 06/04/2019 4:04 PM Zach/Kayli dias, is returning call for Referral and would like a call back. Additional Call Details: Calling with phone numbers requested: [phone] Patients direct number [phone] Conner/friend elephone Encounter - Princess Tidwell - 05/27/2019 9:39 AM PSTTried calling back to inform that referral is in revie w, number listed is a fax number. 9:4 0 AM PSTTelephone Encounter - Gina Hinton I - 05/27/2019 8:30 AM PSTMichael- Forrest, is calling regarding Referral and would like a call back. Additional Call Details: Requesting referral status. Call back at: [phone] If this is a symptom based call, was patient offered triage? Not Applicable If this is a symptom based call and you were unable to immediately transfer the call to a miguelina mueller take down sorter was caller made aware that if at any time she feels it is an emergency they sh ould call 911 or go to the nearest emergency room? not applicable documented in this encounter Plan of Treatment Not on filedocumented as of this encounter Visit Diagnoses Not on filedocumented in this encounter"
[~2020-01-23 10:23] MED LIST changes: +DOXAZOSIN MESYLA4 MG PO; +PROPRANOLOL HCL80 M1 PO; +SODIUM BICARBO650 MG PO; +VITAMIN B-1100 MG PO
[2020-01-23] MEDS ORDERED: XIFAXAN550 MG PO (12:55)
[2020-01-23] MEDS ORDERED: PANTOPRAZOLE SO40 MG PO (12:56)
[2020-01-23] MEDS ORDERED: PROPRANOLOL HCL80 M1 PO (12:56)
[2020-01-23] MEDS ORDERED: ALDACTONE25 MG PO (12:56)
--- NOTE | 2020-01-23 14:15 | NUR ---
MED REC COMPLETE
--- NOTE | 2020-01-23 14:18 | NUR ---
Notified by Dr. Khalil pt has returned to the ER and will be admitted as OBS. He did speak with her and she is now agreeing to go to [facility]. Called and spoke with Freya, Longterm Advisor, at [facility]. She will return on Sunday and assess Shaila and have her complete paperwork. She also states she needs confirmation from [facility], [facility] [phone] for payment. Informed I will call Claudette and leave a message. Freya request pt have Covid test and Dr. Khalil aware. ER note, dc summary from DC on 01/21, face sheet and Ethyl test faxed to Freya at [phone], phone [phone]. Charge nurse updated there is a plan for dc in place depending on how Shaila does over the weekend.
--- NOTE | 2020-01-23 16:45 | NUR ---
49YR OLD FEMALE ADMITTED FROM ER VIA STRETCHER TO ROOM 110, PT IS ALERT, ABLE TO STAND AND PIVOT ONTO BED WITH MIN ASSIST, ASKING TO ORDER DINNER, DENIES NAUSEA OR PAIN AT THIS TIME, ORIENTED TO ROOM AND CALL LIGHT, ORDERS NOTED, MENU PROVIDED, ASKED TO HAVE PURSE AND HOME MEDS PLACED INTO SAFE, MASH PREPARATORY OPERATOR NOTIFIED.CALL LIGHT IN EASY REACH. BED ALARM IS ACTIVE FOR PT SAFETY SHE HAS HX OF BEING FORGETFUL.
--- NOTE | 2020-01-23 17:34 | NUR ---
PROPRANALOL GIVEN AT THIS TIME, CONFIRMED HAD NOT BEEN GIVEN IN ER.
--- NOTE | 2020-01-23 19:00 | NUR ---
ATE 100% OF DINNER, ONE PERSON SBA INTO BATHROOM TO VOID, ALBUMIN INFUSING ORDERED, PT STATES SHE JUST WANTS TO SLEEP.
--- NOTE | 2020-01-23 19:00 | NUR ---
RECEIVED REPORT FROM JAIME EAGLE. pt RESTING IN BED. CALL LIGHT WITHIN REACH.
--- NOTE | 2020-01-23 20:25 | NUR ---
PT CALLS STATING SHE IS HUNGRY. PUDDING AND CRACKERS PROVIDED. NO OTHER NEEDS. CALL LIGHT IN REACH.
--- NOTE | 2020-01-23 21:50 | NUR ---
IN TO DO ASSESSMENT. pt ORIENTED TO SELF AND PLACE, STATED YEAR WAS 1998. ASSESSMENT DONE. MEDICATIONS GIVEN (SEE MAR). pt UP TO VOID, 1PA. AFTER GETTING BACK TO BED pt STATED "IT'S GOTTEN A LOT WORSE. I THINK I NEED TO QUIT DRINKING." DISCUSSED PLAN OF CARE. QUESTIONS ANSWERED. BED ALARM ON. SCDS ON. CALL LIGHT WITHIN REACH.
--- NOTE | 2020-01-23 23:21 | NUR ---
ROUNDED ON pt. RESTING WITH EYES CLOSED, RESPIRATIONS REGULAR AND UNLABORED. BED ALARM ON. CALL LIGHT WITHIN REACH.
--- NOTE | 2020-01-24 01:52 | NUR ---
ROUNDED ON pt. RESTING IN BED WITH EYES CLOSED, RESPIRATIONS REGULAR AND UNLABORED.
--- NOTE | 2020-01-24 02:30 | NUR ---
pt COUGHING, AWAKE. UP TO VOID SBA, BACK TO BED. ASSESSMENT DONE. VITALS AND I&O RECORDED. pt REPORTED BEING HUNGRY, FOOD PROVIDED. NO FURTHER REQUESTS AT THIS TIME. CALL LIGHT WITHIN REACH. BED ALARM ON.
--- NOTE | 2020-01-24 03:10 | NUR ---
CALL LIGHT ON. pt FINISHED EATING. ASSISTED TO REPOSITION, TABLE TIDIED. NO FURTHER REQUESTS. CALL LIGHT WITHIN REACH. BED ALARM ON.
--- NOTE | 2020-01-24 05:11 | NUR ---
NOTED pt ATTEMPTING TO GET OUT OF BED. IN TO ASSIST. pt REQUESTED TO SIT IN CHAIR. VITALS AND I&O RECORDED. pt SITTING IN CHAIR. CHAIR ALARM ON. POSSESSIONS AND CALL LIGHT WITHIN REACH.
--- NOTE | 2020-01-24 05:19 | NUR ---
CALL LIGHT ON. pt UP TO VOID AND BACK TO CHAIR. CHAIR ALARM ON.
--- NOTE | 2020-01-24 06:02 | NUR ---
pt RESTED ON AND OFF DURING NIGHT. ATE FREQUENTLY. 1PA. SL. FORGETFUL AT TIMES. BED/CHAIR ALARM. DAILY WT. USES CALL LIGHT.
--- NOTE | 2020-01-24 06:33 | NUR ---
CALL LIGHT ON. pt UP TO HAVE BM. BACK TO CHAIR. CHAIR ALARM ON. CALL LIGHT WITHIN REACH.
--- NOTE | 2020-01-24 07:53 | NUR ---
PT IS ALERT, ORIENTED EXCEPT FOR SITUATION, ASKING WHEN SHE CAN GO, EAGER FOR BREAKFAST, DENIES PAIN, SBA INTO BATHROOM TO VOID, CHAIR ALARM IS ACTIVE FOR PT SAFETY SHE IS IMPULSIVE. CALL LIGHT IN EASY REACH.
--- NOTE | 2020-01-24 08:34 | NUR ---
ATE 100% OF BREAKFAST, ASKED TO LAY DOWN FOR A NAP. NO COMPLAINTS.
--- NOTE | 2020-01-24 11:30 | NUR ---
PT AMBULATING IN HALLWAYS WITH PT USING CANE, DENIES ANY NEEDS, TAKING PO FLUIDS WELL, GOOD APPETITE, REQUESTING SNACKS.
--- NOTE | 2020-01-24 14:00 | NUR ---
ATE 100% OF LUNCH, DENIES ANY NEEDS, SITTING UP IN RECLINER VISITING WITH DAUGHTER. CALL LIGHT IN EASY REACH.
--- NOTE | 2020-01-24 19:00 | NUR ---
RECEIVED REPORT FROM JAIME EAGLE. pt RESTING IN CHAIR. NO REQUESTS AT THIS TIME. CALL LIGHT WITHIN REACH.
--- NOTE | 2020-01-24 20:04 | NUR ---
VS and I&Os complete with RN Anahy, IV wrapped and pt is ready to shower. Nothing further needed at this time.
--- NOTE | 2020-01-24 20:15 | NUR ---
CALL LIGHT ON. pt REQUESTED TO SHOWER. ASSESSMENT DONE. VITALS AND I&O RECORDED. PROVIDED EVERYTHING NECESSARY TO SHOWER. CALL LIGHT WITHIN REACH. MEDICATIONS GIVEN (SEE MAR).
--- NOTE | 2020-01-24 21:23 | NUR ---
pt showered, bathroom was cleaned up, she asked if this [employer] could braid her hair, i agreed. Nothing further needed at this time.
--- NOTE | 2020-01-24 21:29 | NUR ---
pt is now in bed.
--- NOTE | 2020-01-24 22:23 | NUR ---
ROUNDED ON pt. RESTING IN BED. CALL LIGHT WITHIN REACH.
--- NOTE | 2020-01-24 22:55 | NUR ---
pt REQUESTED SOMETHING TO SLEEP. NOTIFIED, NO NEW ORDERS AT THIS TIME. 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 pt VERBALIZED UNDERSTANDING. NO REQUESTS AT THIS TIME. CALL LIGHT WITHIN REACH.
--- NOTE | 2020-01-24 23:33 | NUR ---
CALL LIGHT ON. PROVIDED FOOD PER REQUEST. CALL LIGHT WITHIN REACH.
--- NOTE | 2020-01-25 00:33 | PATH ---
[facility] [address], [place] [address] Signed ORDERING PHYSICIAN: Howard Parson MD PATIENT NAME: LONDON BERRY GENDER: F : 1970 Prior History: DATE CASE NUM ADEQUACY DIAGNOSIS HPV RESULTS PHYSICIAN The 5 most recent reports are included. This history does not include results of pap smears performed at another laboratory. SPECIMEN(S): MOLECULAR PATHOLOGY RESULTS: SARS-CoV-2 Not Detected ADDITIONAL NOTES.: The Cinebar Fusion SARS-CoV-2 Assay is a multiplex real-time PCR (RT-PCR) in vitro diagnostic test intended for the qualitative detection of RNA from SARS-CoV-2 from individuals who meet COVID-19 clinical and/or epidemiological criteria. In general, SARS-CoV-2 RNA can be detected during the acute phase of infection. Positive results indicate the presence of SARS-CoV-2 RNA. Clinical correlation with patient history and other diagnostic information is necessary to determine patient infection status. Positive results do not rule out bacterial infection or co-infection with other viruses. Negative results do not preclude SARS-CoV-2 infection and should not be used as the sole basis for patient management decisions. Negative results must be combined with other clinical observations, patient history, and epidemiological information. The Cinebar Fusion SARS-CoV-2 Assay is not yet approved or cleared by the [place] FDA. When there are no FDA-approved or cleared tests available, and other criteria are met, FDA can make tests available under an emergency access mechanism called an Emergency Use Authorization (EUA). The EUA for this test is supported by the Location Director of Health and Human Service's (HHS's) declaration that circumstances exist to justify the emergency use of in vitro diagnostics for the detection and/or diagnosis of the virus that causes COVID-19. This EUA will remain in effect for the duration of the COVID-19 declaration justifying emergency of IVDs, unless it is terminated or PATIENT NAME: LONDON BERRY PATHOLOGY DATE OF : 72 REPORT #: [id number] PHYSICIAN: EUGENE PATHOLOGY [facility] REPORT IS CONFIDENTIAL AND NOT TO BE RELEASED WITHOUT AUTHORIZATION [facility] [address] [place] [address] Signed revoked by FDA, after which the test may no longer be used. The Cinebar Fusion SARS-CoV-2 Assay is for use only under EUA in US laboratories certified under the Clinical Laboratory Improvement Amendments of 1988 (CLIA) to perform high complexity tests. [facility] is certified under CLIA to perform high complexity clinical laboratory testing. PERFORMING LABORATORY.: Molecular testing was performed by [facility] [id number] [place] [address] (Global Position System Technician: Thang Castaneda D.O.; CLIA#: [id number]) Diagnostician: System Interface Pathologist Electronically Signed 01/25/2020 Copies: ~ PATIENT NAME: LONDON BERRY PATHOLOGY DATE OF : 72 REPORT #: [id number] PHYSICIAN: EUGENE ALEXIS [facility] REPORT IS CONFIDENTIAL AND NOT TO BE RELEASED WITHOUT AUTHORIZATION
--- NOTE | 2020-01-25 01:43 | NUR ---
pt AWAKE IN ROOM. NO NEEDS AT THIS TIME. CALL LIGHT WITHIN REACH.
--- NOTE | 2020-01-25 03:09 | NUR ---
CALL LIGHT ON. pt REQUESTED FOOD, PROVIDED. pt DID VERBALIZE "I NEED TO WATCH MY SODIUM." AND MADE APPROPRIATE REQUESTS. ASSESSMENT DONE. DENIED PAIN. NO FURTHER REQUESTS AT THIS TIME. CALL LIGHT WITHIN REACH.
--- NOTE | 2020-01-25 06:17 | NUR ---
LAB FINISHED WITH DRAW. pt UP TO VOID AND HAVE BM. DAILY WT. BACK TO BED. VITALS AND I&O. PROVIDED FOOD AND DRINK. NO FURTHER REQUESTS CALL LIGHT WITHIN REACH.
--- NOTE | 2020-01-25 06:19 | NUR ---
pt RESTED ON AND OFF DURING SHIFT. DID REPORT "I SLEPT MUCH BETTER THAN YESTERDAY." SBA WITH CANE/INDEPENENT IN ROOM. ATE FREQUENTLY THROUGHOUT SHIFT. IV SL. 2GM SODIUM DIET. DENIED PAIN. SHOWERED. USES CALL LIGHT.
--- NOTE | 2020-01-25 07:36 | NUR ---
PT RESTING EYES CLOSED AT TIME OF BEDSIDE REPORT. FRESH H20 TO BEDSIDE CALL LIGHT IN REACH
--- NOTE | 2020-01-25 10:15 | NUR ---
PT UP IN THE ROOM INDEPENDANTLY, CURRENTLY SITTING ON THE EDGE OF HER BED AFTER EATING 100% OF MORNING MEAL. DENIES DISCOMFORTS OR NEEDS OF. PT LISTENING TO MUSIC AND WATCHING TV CALL LIGHT IN REACH
--- NOTE | 2020-01-25 14:21 | NUR ---
PATIENT UP TO USE BSC. FAMILY IN ROOM. VITALS AND I&OS CHARTED. CALL BRENDA WATTERS
--- NOTE | 2020-01-25 14:25 | NUR ---
PT HAS BEEN UP IN THE ROOM INDEPENDANTLY THIS SHIFT APPEARS STEADY ON HER FEET, CALLS FOR NEEDED ITEMS APPROPRIATELY. SHE HAS BEEN ALERT AND COOPERATIVE APPEARS MUCH IMPROVED OVER LAST WEEK. VISITOR HAS BEEN PRESENT MUCH OF THIS SHIFT. PT IS EATING NEARLY 100% OF HER MEALS NO C/O OF DISCOMFORTS OR OTHER NEEDS OF. DR SLAUGHTER IN TO SEE HER EARLIER 1 UNIT PRBC'S ORDERED. DISCUSSED TRANSFUSION WITH PT AND S/S TO CALL FOR SHE VERBALIZES UNDERSTANDING.
--- NOTE | 2020-01-25 15:40 | NUR ---
BLOOD TRANSFUSION STARTED. PT VERBALIZES S/S TO NOTIFY STAFF OF. FRIEND REMAINS IN THE ROOM, PT SITTING ON THE BED USING HER PHONE.
--- NOTE | 2020-01-25 19:24 | NUR ---
REPORT RECEIVED FROM JAIME LOBO. PT AWAKE AND ALERT, LAYING IN BED. MADE PLAN WITH PT TO WALK IN HALLWAY. CALL LIGHT WITHIN REACH.
--- NOTE | 2020-01-25 21:17 | NUR ---
SCHEDULED MEDICATIONS ADMINSTERED, ASSESSMENT COMPLETE, VS AND I/O'S COMPLETE. WATER REFRESHED. CALL LIGHT IN REACH. PT REPORTS NO OTHER NEEDS AT THIS TIME.
--- NOTE | 2020-01-26 07:25 | NUR ---
PT RESTING EYES CLOSED AT TIME OF REPORT APPEARS COMFORTABLE. CALL LIGHT IN REACH
--- NOTE | 2020-01-26 09:48 | NUR ---
PT UP TO CHAIR FOR MORNING MEAL EATS 100% WELL TOLERATED. JUST BACK ROM WORKING WITH P/T RETURNS TO SITTING UP IN THE RECLINER. NO C/O OR REQUESTS AT THIS TIME. PT WATCHING TV CALL LIGHT IN REACH
[2020-01-26] MEDS ORDERED: SPIRONOLACTONE100 MG PO (12:39)
[2020-01-26] MEDS ORDERED: FUROSEMIDE20 MG PO (12:39)
--- NOTE | 2020-01-26 14:30 | NUR ---
Notified by Freya at [facility] she is running late. Will be here around 1500.
--- NOTE | 2020-01-26 14:38 | NUR ---
PT UP IN CHAIR ANTICIPATING DC TODAY. VISITOR PRESENT IN THE ROOM WATCHING MOVIE WITH HER.
--- NOTE | 2020-01-26 15:30 | NUR ---
Freya here and papers signed. Dc Summary with meds listed and signed by Dr. Dietz. Facility orders completed with a Telephone order following call to Dr. Dietz. Conner here and discussing placement with Freya. Pt ready for dc.
--- NOTE | 2020-01-26 15:51 | NUR ---
PT MEETING WITH LARRY LUX AVAYA ENGINEER REGARDING DC TO FACILITY
== END 2020-01-26 16:00 | disposition home or self-care (01) ==
LOC: ED 10:23 → MS 10:25
PROVIDERS: ADMIT Student in an Organized Health Care Education/Training Program; ATTEND Student in an Organized Health Care Education/Training Program
DX: K74.60 Unspecified cirrhosis of liver (principal); K72.90 Hepatic failure, unspecified without coma; R18.8 Other ascites; D64.9 Anemia, unspecified; D73.1 Hypersplenism; K76.6 Portal hypertension; I10 Essential (primary) hypertension; K21.9 Gastro-esophageal reflux disease without esophagitis; Z20.828 Contact with and (suspected) exposure to other viral communicable diseases; Z23 Encounter for immunization; Z88.6 Allergy status to analgesic agent; Z88.1 Allergy status to other antibiotic agents; Z88.8 Allergy status to other drugs, medicaments and biological substances; Z79.899 Other long term (current) drug therapy
CPT/HCPCS: 36415; 36430; 51701; 74177; 80048; 80053; 81001; 82140; 82945; 83690; 83735; 84157; 84703; 85014; 85018; 85025; 85610; 86850; 86900; 86901; 86920; 87070; 87075; 87205; 89051; 90686; 94644; 96375; 97110; 97116; 97162; 97165; 99285-25; C9803; G0008; G0378; G0480; J3475; P9016; P9047; Q9967; U0003

== ENCOUNTER 2020-03-08 11:45 | Inpatient (IN) | payer OTHER ==
[~2020-03-08] VITALS: Ht 170.2 cm; Wt 53.0 kg
[~2020-03-08 11:45] MED LIST changes: +ALDACTONE25 MG PO
--- NOTE | 2020-03-08 19:50 | NUR ---
PT TO ROOM 111 VIA STRETCHER FROM ED. ALERT AND ORIENTED. ABLE TO TRANSFER SELF FROM [facility] TO BED. VS AND WEIGHT OBTAINED. ORDERS RECEIVED. IV BOLUS INFUSING FROM ED. HOSPITAL CORPSMAN IN ROOM TO DO ADMISSION.
--- NOTE | 2020-03-08 20:00 | NUR ---
SBA TO THE BATHROOM AND BACK TO BED.
--- NOTE | 2020-03-08 20:30 | NUR ---
ASSESSMENT COMPLETE. SCHEDULED MEDS ADMINISTERED PER EMAR. PT REPORTS MILD PAIN AND NAUSEA. DENIES PRN AT THIS TIME. IVF INFUSING PER ORDER. HEARD PATENT DRAINING CLEAR YELLOW URINE. PT UP TO BR TO HAVE LARGE LOOSE BOWEL MOVEMENT WITH FWW AND SBA. PT ABLE TO DO OWN ROSELIA CARE. BACK TO BED, GATO WELL. SNACK PROVIDED. PT DENIES QUESTIONS OR CONCERNS. CALL LIGHT WITHIN REACH.
--- NOTE | 2020-03-08 21:00 | NUR ---
SBA BACK TO BED. PATIENT USED WALKER.
--- NOTE | 2020-03-08 23:25 | NUR ---
SBA TO THE BATHROOM AND BACK TO BED. COLA DRINKS PROVIDED PER REQUEST.
--- NOTE | 2020-03-08 23:52 | NUR ---
SBA FROM BATHROOM TO BED. NO OTHER NEEDS AT THIS TIME.
--- NOTE | 2020-03-09 00:18 | NUR ---
CALL LIGHT ANSWERED. PATIENT HAD BOWEL MOVEMENT ON PULL UPS. CHANGED TO ATTENDS.
--- NOTE | 2020-03-09 01:30 | NUR ---
V/S AND I&O TAKEN AND CHARTED. CRACKERS PROVIDED PER PATIENT'S REQUEST.
--- NOTE | 2020-03-09 03:25 | NUR ---
PT RESTING IN BED WITH EYES CLOSED, NAD.
--- NOTE | 2020-03-09 06:42 | NUR ---
VS AND I&O COMPLETE. IVF INFUSING. HEARD PATENT WITH CLEAR YELLOW URINE. DENIES PAIN OR NAUSEA. PT DENIES NEEDS. CALL LIGHT IN REACH.
--- NOTE | 2020-03-09 07:46 | NUR ---
PATIENT SLEEPING. WHITE BOARD UPDATED. CALL LIGHT WITHIN REACH. NO OTHER NEEDS AT THIS TIME
--- NOTE | 2020-03-09 08:10 | NUR ---
REPORT RECIEVED. PT SLEEPING IN BED. RESPIRATIONS EQUAL AND NONLABORED. BED ALARM IN PLACE. PT VISIBLE FROM NURSING STATION.
--- NOTE | 2020-03-09 08:30 | NUR ---
PATIENT RESTING IN BED. PATIENT'S BREAKFAST ORDERED. CALL LIGHT WITHIN REACH. NO OTHER NEEDS AT THIS TIME
--- NOTE | 2020-03-09 09:04 | NUR ---
PATIENT RESTING IN BED. PATIENT TAKES A SHOWER. ONE PERSON ASSISTING WITH WALKER. CATHETER CARE DONE. PATIENT BACKS TO CHAIR. WARM BLANKET PROVIDED. SETS UP TABLE FOR BREAKFAST. CALL LIGHT WITHIN REACH. NO OTHER NEEDS AT THIS TIME
--- NOTE | 2020-03-09 09:47 | NUR ---
PATIENT SITTING UP IN CHAIR. VITAL SIGNS AND I&O DONE. CALL LIGHT WITHIN REACH. NO OTHER NEEDS AT THIS TIME
--- NOTE | 2020-03-09 10:12 | NUR ---
PT OUT AMBULATING WITH PHYSICAL THERAPY.
--- NOTE | 2020-03-09 10:37 | NUR ---
MED REC COMPLETE
[2020-03-09] MEDS ORDERED: POLYTRIM EYE DR10 ML OU (10:45)
--- NOTE | 2020-03-09 11:15 | NUR ---
Spoke iwth Shaila and Conner. Pt states she remains homeless. She has been staying with Conner at times. She states she can also go to her sister, Dorothea's home. Dorothea does not have running water or electricity. Discussed with Shaila and Angel I more than likely will not be able to place her. has placed her several times in the past year, she "snuck out" of every place she was placed. These SNF's and ALFS have all requested we do not call them again for placement for her. She is [facility]. Per Conner there are two apartments that may be available shortly.l
--- NOTE | 2020-03-09 12:53 | NUR ---
PATIENT USING THE BATHROOM. PATIENT BACKS TO CHAIR. ONE PERSON ASSISTING WITH WALKER. VITAL SIGNS AND I&O DONE. CALL LIGHT WITHIN REACH. NO OTHER NEEDS AT THIS TIME
--- NOTE | 2020-03-09 12:56 | NUR ---
PT SITTING IN CHAIR, EATING LUNCH. JAIME DAMON REPORTED THAT PT IS RESPONDING WELL. PT INVOLVED IN LUNCH, GAVE BLESSING, WILL FOLLOW
--- NOTE | 2020-03-09 13:49 | NUR ---
IV TO LEFT UPPER ARM INFILTRATED AND SWOLLEN. REPLACED IN LEFT WRIST. PT TOLERATED WELL. SITTING UP IN CHAIR.
--- NOTE | 2020-03-09 13:52 | EKG ---
[facility] [address] [facility] [place] [address] Signed Sinus bradycardia Possible Anterior infarct (cited on or before 12-JAN-2020) Abnormal ECG When compared with ECG of 12-JAN-2020 09:24, Vent. rate has decreased BY 56 BPM Non-specific change in ST segment in Lateral leads T wave inversion no longer evident in Anterolateral leads Confirmed by IRIS OTTO DO ([id number]) on 03/09/2020 1:51:50 PM Electronically Signed By: IRIS OTTO DO 03/09/20 1352 PATIENT NAME: LONDON BERRY Electrocardiogram DATE OF : 72 PHYSICIAN: IRIS OTTO DO REPORT #: [id number] REPORT IS CONFIDENTIAL AND NOT TO BE RELEASED WITHOUT AUTHORIZATION
--- NOTE | 2020-03-09 14:13 | NUR ---
CALL LIGHT ANSWERED. PATIENT SAID THAT SHE DOES NOT WANT TO RECEIVE ANY PHONE CALLS EXCEPT FOR ARYA'S CALLS. MEDICAL SURGICAL'S MELLOWING MACHINE OPERATOR INFORMED. CALL LIGHT WITHIN REACH. NO OTHER NEEDS AT THIS TIME
--- NOTE | 2020-03-09 15:15 | NUR ---
CALL LIGHT ANSWERED. PATIENT SITTING UP IN CHAIR. VISITOR IN ROOM. PATIENT BACKS TO BED. ONE PERSON ASSISTING WITH WALKER. CALL LIGHT WITHIN REACH. NO OTHER NEEDS AT THIS TIME
--- NOTE | 2020-03-09 17:08 | NUR ---
PT SITTING UP IN CHAIR EATING DINNER. DENIES PAIN. CALL LIGHT IN REACH.
--- NOTE | 2020-03-09 17:23 | NUR ---
PATIENT SITTING UP IN CHAIR. VITAL SIGNS AND I&O DONE. CALL LIGHT WITHIN REACH. NO OTHER NEEDS AT THIS TIME
--- NOTE | 2020-03-09 19:43 | NUR ---
REPORT RECEIVED FROM DAY SHIFT RN. PT LYING IN BED ALERT AND ORIENTED. IVF INFUSING. ORQUIDEA PATENT. DENIES NEEDS. WHITE BOARD UPDATED. CALL LIGHT IN REACH.
--- NOTE | 2020-03-09 19:58 | NUR ---
PT SBA BACK TO BED FROM BR TO HAVE LOOSE BOWEL MOVEMENT. GAIT STEADY. CHOCOLATE PUDDING PROVIDED PER REQUEST.
--- NOTE | 2020-03-09 20:51 | NUR ---
PT CALLED FOR CRANBERRY JUICE, HAVE TO GET MORE AND WILL RETURN WITH IT.
--- NOTE | 2020-03-09 21:35 | NUR ---
EVENING ASSESSMENT COMPLETE. SCHEDULED MEDS ADMINISTERED PER EMAR. PT DENIES PAIN OR NAUSEA. IVF INFUSING. HEARD PATENT WITH CLEAR YELLOW URINE. PT WITH MULTIPLE LOOSE STOOLS. DENIES QUESTIONS OR CONCERNS. FRESH LIQUIDS PROVIDED. CALL LIGHT IN REACH.
--- NOTE | 2020-03-09 22:22 | NUR ---
CALL LIGHT ON. pt UP IN BATHROOM. SBA FWW BACK TO BED. CALL LIGHT WITHIN REACH.
--- NOTE | 2020-03-10 01:23 | NUR ---
CALL LIGHT ANSWERED. SNACK PROVIDED PER REQUEST. NO FURTHER NEEDS. CALL LIGHT IN REACH.
--- NOTE | 2020-03-10 04:07 | NUR ---
CALL LIGHT ANSWERED. PT C/O NOT BEING ABLE TO SLEEP. WARM BLANKET PROVIDED. LIGHTS TURNED OUT. ASSISTED PT TO REPOSITION IN BED. DOOR CLOSED. CALL LIGHT IN REACH.
--- NOTE | 2020-03-10 06:00 | NUR ---
PT RESTING IN BED WITH EYES CLOSED, NAD.
--- NOTE | 2020-03-10 08:00 | NUR ---
PT UP EARLY AND INTO SHOWER, DENIES ANY DISCOMFORT, STATES SHE HAS ORDERED BREAKFAST.
--- NOTE | 2020-03-10 08:29 | NUR ---
PATIENT UP IN CHAIR, PATIENT HAS ATE BREAKFAST, ASKED FOR SOME ICE, NOTHING ELSE NEEDED AT THIS TIME
--- NOTE | 2020-03-10 09:20 | NUR ---
Spoke with Shaila. States she is ok. She has been up and showered this am. States she is stressed as family are calling and want to visit when she goes home. She is very concerned about them drinking around her and possibility she might resume drinking. Offered Peer to Peer support and she would like to speak with them. Called and spoke with Melanie, someone will visit shortly. Let her know pt will dc today. Shaila as been on their service in the past.
--- NOTE | 2020-03-10 10:13 | NUR ---
PATIENT IS IN THE CHAIR, PATIENT WORKED ITH PT, PATIENT ASKED FOR A WARM BLANKET AND IS CURENTLY RESTING, ORQUIDEA WAS D/C'D PER MD AND NURSE REQUEST
[2020-03-10] MEDS ORDERED: PROPRANOLOL HCL20 MG PO (11:18)
[2020-03-10] MEDS ORDERED: SPIRONOLACTONE50 MG PO (11:20)
[2020-03-10] MEDS ORDERED: LASIX20 MG PO (11:21)
--- NOTE | 2020-03-10 11:22 | NUR ---
PERSON FROM JONATHAN TO JONATHAN WILL BE IN SHORTLY TO SPEAK WITH PATIENT. PATIENT IS CONCERNED ABOUT FAMILY DRINKING AROUND HER AFTER DISCHARGE.
--- NOTE | 2020-03-10 13:00 | NUR ---
DISCHARGE INSTRUCTIONS GIVEN TO PATIENT AND HER FRIEND- ARYA, VERBALIZES UNDERSTANDING OF MEDICATION INSTRUCTIONS, SE TO REPORT AND SCHEDULED FOLLOWUP APPOINTMENT. SPOKE WITH PHARMACY ALSO. WILL DC TO HOME.
== END 2020-03-10 13:14 | disposition home or self-care (01) | DRG 683 ==
LOC: ED 11:45 → MS 18:38
PROVIDERS: ADMIT Student in an Organized Health Care Education/Training Program; ATTEND Student in an Organized Health Care Education/Training Program
DX: N17.9 Acute kidney failure, unspecified (principal); E87.2 Acidosis; Z20.828 Contact with and (suspected) exposure to other viral communicable diseases; E87.5 Hyperkalemia; E86.0 Dehydration; T50.1X5A Adverse effect of loop [high-ceiling] diuretics, initial encounter; I10 Essential (primary) hypertension; K74.60 Unspecified cirrhosis of liver; K21.9 Gastro-esophageal reflux disease without esophagitis; K72.90 Hepatic failure, unspecified without coma; F10.21 Alcohol dependence, in remission; Z87.891 Personal history of nicotine dependence; Z79.2 Long term (current) use of antibiotics; Z79.899 Other long term (current) drug therapy; Z88.2 Allergy status to sulfonamides; Z88.1 Allergy status to other antibiotic agents; Z88.8 Allergy status to other drugs, medicaments and biological substances
CPT/HCPCS: 36415; 51702; 51798; 80048; 80053; 81001; 83690; 83735; 84100; 85025; 93005; 93010; 97116; 97162; 97165; 97530; 99285-25; C9803; J1650; J3475; J7030; J7121; U0003

== ENCOUNTER 2020-09-15 14:48 | Inpatient (IN) | payer OTHER ==
[~2020-09-15] VITALS: Ht 170.2 cm; Wt 54.6 kg
[~2020-09-15 14:48] MED LIST changes: +LASIX20 MG PO; +POLYTRIM EYE DR10 ML OU
--- NOTE | 2020-09-15 19:07 | NUR ---
PATIENT ADMITTED TO CCU FOR HYPONATREMIA AT 1845 TO ROOM 126. PT ABLE TO STAND AND WALK TO CCU BED W/O DIFFICULTY. PT IS ALERT, ORIENTED, AND CALM. ADMISSION INTAKE COMPLETE. PT ADMITS TO DRINKING 6 BEERS/DAY, 16 OZ BEERS, WITH HER LAST DRINKS THIS AM. PT NOT NOTED TO BE TREMULOUS, AGITATED, OR HAVING ANY OTHER SIGNS OF WITHDRAWAL AT THIS TIME. PT HAS HAD PRIOR ADMISSIONS FOR ETOH W/D. DISCUSSED THIS AT LENGTH WITH PATIENT. PATIENT AGREEABLE TO USE CALL LIGHT. UP TO BATHROOM TO VOID AND SPECIMEN COLLECTED AND SENT TO LAB. HR IN THE 70s, SINUS. LAST BP 168/86 (111). PT NOW EATING SOUP FOR DINNER. PT ALSO ON A FLUID RESTRICITON OF 1000 ML AND DISCUSSED THIS WITH PATIENT. REPORT TO BE GIVEN TO LODGE ATTENDANT.
--- NOTE | 2020-09-15 19:45 | NUR ---
shift report recived. patient resting in bed watching tv. ate her pudding and soup. request some chips and fruit, shellfish farming supervisor notified. iv fluids infusing per order, site wnl.
--- NOTE | 2020-09-15 20:39 | NUR ---
PATIENT ATE A SMALL PLATE OF FRUIT AND BAG OF CHIPS. UP TO THE BSC WITH LIMITED ASSIST. PATIENT'S SO IN ROOM TO ASSIST HER. PATIENT IS STEADY ON HER FEET. MEDIUM BM NOTED. PATIENT RETURNED TO BED. DENIED FURTHER NEEDS.
--- NOTE | 2020-09-15 21:26 | NUR ---
PATIENT UP TO THE BATHROOM TO VOID. 400 MLS CLEAR URINE.
--- NOTE | 2020-09-15 22:09 | NUR ---
assisted pt back to bed from bsc x1 sba. pt did own pericare. voided clear yellow urine. side rails up, call light in reach. pt denies further needs
--- NOTE | 2020-09-15 22:45 | NUR ---
PATIENT LABS DRAWN BY FOOD SERVICE COORDINATOR AND SECOND IV SITE ESTABLISHED. PATIENT TOLERATED WELL.
--- NOTE | 2020-09-15 23:15 | NUR ---
PATIENT UP TO BS TO VOID WITH ASSISTANCE FROM ZEE ESPINO
--- NOTE | 2020-09-15 23:38 | NUR ---
DR. SLAUGHTER NOTIFED OF PATIENT'S LABS AND URINE OUTPUT. ALSO THE PATIENT'S REQUEST FOR A SLEEP AID.
--- NOTE | 2020-09-16 00:02 | NUR ---
PATIENT PROVIDED WITH PRN SLEEP AID AND SWITCHED IV FLUIDS TO NEW ORDER.
--- NOTE | 2020-09-16 00:36 | NUR ---
PATIENT UP TO BSC. INCREASED TREMORS WITH ACTIVITY. TOLERATED WELL.
--- NOTE | 2020-09-16 01:10 | NUR ---
assisted pt up to bsc x1 sba. pt voided, did own pericare. pt back to bed, side rails up, call light in reach. denies other needs
--- NOTE | 2020-09-16 01:57 | NUR ---
PATIENT REPORTING PAIN BEHIND HER RIGHT KNEE. REQUESTING "PAIN CREAM". DISCUSSED OPTIONS. PROVIDED WITH A WARM BLANKET AND SUPPORTED LEG ON A PILLOW.
--- NOTE | 2020-09-16 02:06 | NUR ---
PT CALLED TO USE BATHROOM. UP TO BSC WITH 1-PA, PT SHAKY ON FEET. VOIDED 400ML DILUTE URINE AND RN ASSISTED WITH PERICARE. PT RETURNED TO BED.
--- NOTE | 2020-09-16 03:15 | NUR ---
PT CALLED UP TO BSC WITH 1-PA. VOIDED 350ML URINE. PT SHAKY/UNSTEADY ON FEET. AFTER GETTING BACK TO BED, PT BECAME NAUSEATED AND WAS DRY HEAVING/SPITTING BUT NO EMESIS. PRN ZOFRAN GIVEN. CIWA DONE BY PRIMARY RN, DONITA AND 1MG IV ATIVAN GIVEN. BED ALARM SET FOR SAFETY.
--- NOTE | 2020-09-16 03:34 | NUR ---
IVF INFUSION COMPLETED, IV SALINE LOCKED AT THIS TIME. PT SLEEPING SOUNDLY, RR:13, HR:77, SPO2:96%.
--- NOTE | 2020-09-16 04:00 | NUR ---
CARE ASSUMED FROM JAIME DUCKWORTH AT THIS TIME. ASSESSMENT COMPLETED, PT IS DROWSY AFTER RECEIVING ATIVAN, CIWA AT THIS TIME 7, REMAINS TREMULOUS. DENIES PAIN AND NAUSEA. LUNGS CLEAR, RA. HR REGULAR. BOWEL TONES ACTIVE. SKIN GROSSLY INTACT WITHOUT EDEMA NOTED. IV SITES INTACT. BLOOD DRAWN FROM RIGHT IV SITE AND SET OF LABS. PT DENIES NEEDS AT THIS TIME, CALL LIGHT WITHIN REACH, BED ALARM ON FOR SAFETY.
--- NOTE | 2020-09-16 05:15 | NUR ---
DR. SLAUGHTER NOTIFIED OF RECENT LAB RESULTS. ORDERS RECEIED TO ADMINISTER 1L D5 OVER 3 HOURS, INFUSION STARTED AT THIS TIME. PT CONTINUES TO REST, WAKES EASILY WHEN SPOKEN TO. BED ALARM ON.
--- NOTE | 2020-09-16 06:02 | NUR ---
patient up to void 400 mls at the [facility] [place] [place]. patient has less tremors then previous time out of bed. still weak and unsteady. assisted back to bed. denies further needs.
--- NOTE | 2020-09-16 08:05 | NUR ---
breakfast order obtained from pt. pt is slightly drowsy at this time, however able to wake up to answer questions.
--- NOTE | 2020-09-16 08:38 | NUR ---
PT BREAKFAST IS SERVED TO PT. PT ABLE TO TAKE ALL PO PILLS AND MEDICATIONS EASILY.
--- NOTE | 2020-09-16 12:02 | NUR ---
PT LUNCH ORDERED. PT DENIES PAIN, NAUSEA, AND SOB AT THIS TIME. PT HAS CALL LIGHT WITHIN REACH.
--- NOTE | 2020-09-16 13:02 | NUR ---
PT REQUESTS TO SIT UP AT THE CHAIR AT THE BEDSIDE. PT DENIED THIS REQUEST DUE TO IMPULSIVE HISTORY OF GETTING OUT OF BED, AND UNSTEADINESS ON FEET. PT REPOSITIONED UP IN BED. LUNCH SERVED. PT'S SIGNIFICANT OTHER AT THE BEDSIDE.
--- NOTE | 2020-09-16 13:10 | NUR ---
RECEIVED CALL FROM [facility] REQUESTING H&P SENT TO THEM AT [phone]. PCP OFFICE HAD SENT PATIENT TO ED AND WANTS TO KEEP A CLOSE FOLLOW UP WITH HER.
--- NOTE | 2020-09-16 13:39 | NUR ---
pt. used bed side commode for large bm. no other needs at this time
--- NOTE | 2020-09-16 14:09 | NUR ---
PT ABLE TO TAKE ORAL MEDS EASILY. REQUESTS AND IS GIVEN A WARM BLANKET, REPOSITIONED IN BED FOR COMFORT. CALL LIGHT IS WITHIN REACH, PT DENIES ANY OTHER NEEDS AT THIS TIME.
[2020-09-16] MEDS ORDERED: MELATONIN1 MG PO (14:52)
[2020-09-16] MEDS ORDERED: FOLIC ACID1 MG PO (14:53)
[2020-09-16] MEDS ORDERED: IRON325 M1 PO (14:53)
[2020-09-16] MEDS ORDERED: VITAMIN C500 M1 PO (14:54)
[2020-09-16] MEDS ORDERED: ZINC SULFATE50 MG PO (14:55)
[2020-09-16] MEDS ORDERED: PROTONIX40 MG PO (14:56)
[2020-09-16] MEDS ORDERED: ALDACTONE25 MG PO (14:56)
[2020-09-16] MEDS ORDERED: CLARITIN10 MG PO (14:57)
[2020-09-16] MEDS ORDERED: THEREMS-M TABL1 EACH PO (14:58)
[2020-09-16] MEDS ORDERED: VITAMIN D350 MCG PO (14:59)
--- NOTE | 2020-09-16 15:13 | NUR ---
MED REC COMPLETE
--- NOTE | 2020-09-16 15:38 | NUR ---
ATTEMPTED TO SEE PATIENT TO COMPLETE CASE MANAGEMENT ASSESSMENT. PATIENT TALKING ON CELL PHONE. CHECK WITH PRIMARY RN ABELINO, PATIENT STABLE AND NO PLANS TO DISCHARGE AT THIS TIME. WILL FOLLOW UP WITH PATIENT TOMORROW 09/17/2020.
--- NOTE | 2020-09-16 18:52 | NUR ---
CALLED TO UPDATE ON PT SODIUM LABS OF 120 FROM 1700 LAB DRAW. ORDERS 500 ML NS OVER 90 MINUTES, AND ADDITIONAL LABS.
--- NOTE | 2020-09-16 19:23 | NUR ---
Report recieved care of patient assumed at this time. Pt resting in bed watching television, partner Conner at bedside. IV fluids infusing, call light within reach. denies further needs at this time.
--- NOTE | 2020-09-16 19:44 | NUR ---
FOR THE SHIFT PT REMAINS ALERT, ORIENTED, AND COOPERATIVE. IV SITES HAVE REMAINED INTACT, FLUID AND FLUSHES INFUES EASILY, PT DENIES PAIN AT EITHER SITE. PT UP TO THE BEDSIDE COMMODE MULTIPLE TIMES TO VOID AND TO STOOL. PT ATE MEALS WELL. PT DENIES PAIN, NAUSEA, AND SOB ALL SHIFT. PT REMAINS ON ROOM AIR ALL DAY. ALL VITALS ARE WNL. PT SIGNIFICANT OTHER AT THE BEDSIDE TWO DIFFERENT TIMES TODAY, SUPPORTIVE. PT ABLE TO USE CELL PHONE INDEPENDENTLY.
--- NOTE | 2020-09-16 20:36 | NUR ---
Evening medications administered. Blood drawn from new IV start in right leg. IV started by JAIME Cantu. Assessment completed. Pt alert and oriented. Denies pain of discomfort. Arms are tremulous at rest, but no other assessed signs of alcohol withdrawal. Pt up to BSC to void, one person assist required. Pt shaky but able to stand with minimal assist. pt back in bed, plan of care for evening established, all questions answered. call light within reach. Will continue to monitor.
--- NOTE | 2020-09-16 21:00 | NUR ---
MD NOTIFIED OF RECENT LAB RESULTS, ORDERS RECIEVED (SEE EMAR).
--- NOTE | 2020-09-16 22:30 | NUR ---
PT UP TO BSC, ONE PERSON ASSIST REQUIRED. BACK IN BED, CALL LIGHT WITHIN REACH. NO FURTHER NEEDS AT THIS TIME.
--- NOTE | 2020-09-16 23:50 | NUR ---
PT UP TO BSC AND BACK TO BED. ASSESSMENT COMPLETED AT THIS TIME. PT APPEARS MORE STEADY ON FEET. DENIES PAIN OR DISCOMFORT. IV FLUIDS CONTINUE TO INFUSE. CALL LIGHT WITHIN REACH. DENIES FURTHER NEEDS AT THIS TIME.
--- NOTE | 2020-09-17 01:15 | NUR ---
PT CALLS TO USE BSC, PROVIDED. PT SBA BACK TO BED. NO OTHER NEEDS. CALL LIGHT IN REACH.
--- NOTE | 2020-09-17 03:01 | NUR ---
Pt up to bathroom. remains steady on feet. standby assist only required. Pt now back in bed, call light within reach. IV fluids infusing. no further needs at this time.
--- NOTE | 2020-09-17 04:45 | NUR ---
PT ASSESSMENT COMPLETED. RIGHT AC IV DC'D FOR LEAKING AT INSERTION SITE AND PATIENT DISCOMFORT. PT REQUESTING SHOWER. PLAN ESTABLISHED TO GIVE PT A SHOWER AFTER AM LABS.
--- NOTE | 2020-09-17 05:50 | NUR ---
blood drawn and sent to lab at this time.
--- NOTE | 2020-09-17 06:42 | NUR ---
ASSISTED PT WITH SHOWER. HAIR WASHED. COMPLETED BED CHANGE. WELL TOLERATED BY PATIENT. BREAKFAST ORDERED. IV FLUIDS INFUSING. CALL LIGHT WITHIN REACH. NO FURTHER NEEDS AT THIS TIME.
--- NOTE | 2020-09-17 09:10 | NUR ---
Notified by staff, pt is leaving AMA.
--- NOTE | 2020-09-17 09:30 | NUR ---
FULL REPORT CALLED TO ALBERTO ON MED/SURG, ALL QUESTIONS ANSWERED. PLAN FOR PT TO TRANSFER TO ROOM 110 SHORTLY.
--- NOTE | 2020-09-17 09:45 | NUR ---
PT REPORTS THAT SHE IS GOING HOME. SHE REFUSES TO BE TRANSFERED TO MED/SURG. SHE IS AWARE THAT THIS IS AGAINST MEDICAL ADVICE. NOTIFIED.
--- NOTE | 2020-09-17 10:05 | NUR ---
PT SIGNED AMA FORM AND HAS BEEN EDUCATED TO THE RISKS OF LEAVING THE HOSPITAL AGAINST MEDICAL ADVICE, PT REMAIN ADAMANT THAT SHE IS GOING HOME. BOTH SALINE LOCK SITES REMOVED FROM PT. ASSISTED PT INTO HER OWN CLOTHES. ALL PERSONAL BELONGINGS GATHERED AND RETURNED TO HER.
--- NOTE | 2020-09-17 10:15 | NUR ---
PT TAKE OFF THE UNIT TO THE FRONT OF THE HOSPITAL VIA WHEELCHAIR. SHE IS WAITING IN THE LOBBY FOR HER RIDE.
== END 2020-09-17 10:15 | disposition left against medical advice (07) | DRG 641 ==
LOC: ED 14:48 → CCU 18:19
PROVIDERS: ADMIT Internal Medicine; ATTEND Internal Medicine
DX: E87.1 Hypo-osmolality and hyponatremia (principal); D61.818 Other pancytopenia; K70.31 Alcoholic cirrhosis of liver with ascites; F10.20 Alcohol dependence, uncomplicated; Z88.6 Allergy status to analgesic agent; Z88.1 Allergy status to other antibiotic agents; Z79.899 Other long term (current) drug therapy; Z88.2 Allergy status to sulfonamides; Z88.8 Allergy status to other drugs, medicaments and biological substances; E83.42 Hypomagnesemia; I10 Essential (primary) hypertension; D64.9 Anemia, unspecified; Z87.891 Personal history of nicotine dependence
CPT/HCPCS: 80048; 80053; 82533; 83735; 83930; 83935; 84295; 84443; 84550; 85025; 99285; J2060; J2405; J3475; J7030; J7070; J7131; U0003

== ENCOUNTER 2021-01-25 22:07 | Inpatient (IN) | payer OTHER ==
[~2021-01-25] VITALS: Ht 170.2 cm; Wt 52.7 kg
[~2021-01-25 22:07] MED LIST changes: +CLARITIN10 MG PO; +IRON325 M1 PO; +MELATONIN1 MG PO; +THEREMS-M TABL1 EACH PO; +VITAMIN C500 M1 PO; +VITAMIN D350 MCG PO; +ZINC SULFATE50 MG PO
[2021-01-27] MEDS ORDERED: PROPRANOLOL HCL40 MG PO (11:26)
[2021-01-27] MEDS ORDERED: VISTARIL25 MG PO (12:12)
[2021-01-27] MEDS ORDERED: CETAPHIL CREAM454 GM TOP (12:13)
[2021-01-29] MEDS ORDERED: AMOX TR-K CLV1 EACH PO (12:35)
[2021-01-29] MEDS ORDERED: LACTULOSE10 GM/15 M PO (13:18)
== END 2021-01-29 13:35 | disposition home or self-care (01) | DRG 897 ==
LOC: ED 22:07 → CCU 22:09 → MS 01-27 16:43
PROVIDERS: ADMIT Internal Medicine; ATTEND Internal Medicine
DX: F10.239 Alcohol dependence with withdrawal, unspecified (principal); N39.0 Urinary tract infection, site not specified; E87.1 Hypo-osmolality and hyponatremia; Z20.822 Contact with and (suspected) exposure to COVID-19; K29.20 Alcoholic gastritis without bleeding; B96.1 Klebsiella pneumoniae [K. pneumoniae] as the cause of diseases classified elsewhere; Z71.41 Alcohol abuse counseling and surveillance of alcoholic; K72.10 Chronic hepatic failure without coma; F10.20 Alcohol dependence, uncomplicated; I10 Essential (primary) hypertension; K70.30 Alcoholic cirrhosis of liver without ascites; D64.9 Anemia, unspecified; Z91.19 Patient's noncompliance with other medical treatment and regimen; Z87.891 Personal history of nicotine dependence; Z98.890 Other specified postprocedural states; Z88.1 Allergy status to other antibiotic agents; Z88.2 Allergy status to sulfonamides; Z88.6 Allergy status to analgesic agent; Z79.899 Other long term (current) drug therapy; Y90.4 Blood alcohol level of 80-99 mg/100 ml
CPT/HCPCS: 80048; 80053; 81001; 83690; 83735; 83930; 83935; 84703; 85025; 87088; C9113; C9803; G0378; G0480; J0696; J2060; J2405; J2597; J3475; J7030; J7070; J7131; U0003

== ENCOUNTER 2021-05-08 16:01 | Emergency (ER) | payer OTHER ==
[~2021-05-08] VITALS: Ht 170.2 cm; Wt 49.4 kg
[~2021-05-08 16:01] MED LIST changes: +AMOX TR-K CLV1 EACH PO; +CETAPHIL CREAM454 GM TOP; +PROPRANOLOL HCL40 MG PO; +VISTARIL25 MG PO
== END 2021-05-08 16:35 | disposition home or self-care (01) ==
LOC: ED 16:01
DX: D68.9 Coagulation defect, unspecified (principal); K74.60 Unspecified cirrhosis of liver; R58 Hemorrhage, not elsewhere classified; I10 Essential (primary) hypertension; D64.9 Anemia, unspecified; Z87.891 Personal history of nicotine dependence; Z88.6 Allergy status to analgesic agent; Z88.8 Allergy status to other drugs, medicaments and biological substances; Z79.899 Other long term (current) drug therapy
CPT/HCPCS: 99283